=== PATIENT | female | born 1975 | race Caucasian/White ===

== ENCOUNTER 2023-02-25 14:07 | Outpatient (OUT) | payer OTHER, SELFPAY ==
--- NOTE | 2023-02-25 12:30 | PM.CN ---
Consult Note: HPI Data of Consult Patient: known to practice within the last 3 years Consult date: 02/25/23 Requesting Physician: JULIETH PASCAL NP Family Provider: DMISC Consult Narrative Narrative: Risa is here for f/u of second dx bilat thoracic MBB T11/ 12 T12/L1. No new sensorimotor sx or bowel or bladder issues. She received 80% relief of pain with increased fx for several hours after procedure. She would like to proceed with RFA. No questions on procedure. She did inquire about increasing requip. She is aware not to increase dose d/t being on max dose now. We discussed her trying magnesium glycinate OTC as directed. We also discussed smoking cessation for spine health. cc:: CC: JUILETH PASCAL NP Review of Systems ROS Status of ROS 10 or more systems reviewed and unremarkable except as noted in history and below Musculoskeletal Reports: back pain Exam Constitutional: Documenting provider has reviewed patient's vital signs: yes Common normals: no apparent distress, average body habitus, oriented x3, no limitations, healthy appearing, alert and well nourished General appearance: cooperative, comfortable and well developed Orientation/consciousness: Yes awake, Yes oriented to person, Yes oriented to place and Yes oriented to time HENMT: Common normals: normocephalic, external nose normal and moist oral mucous membranes Respiratory: Common normals: normal respiratory effort, no retractions and no use of accessory muscles Effort & inspection: able to speak in complete sentences and symmetric chest movement Back & Pelvis: Thoracic spine/upper back: normal to inspection, thoracic ROM normal, pain with ROM, thoracic spinal tenderness, paraspinal muscle tenderness, paraspinal muscle spasm and other soft tissue findings (positive pain with ROM and facet loading positive) Lumbar spine/lower back: normal to inspection and straight leg raise negative bilaterally Other: no radicular sx. Muscle strength 5/5 bilat LE with intact sensation Skin: Common normals: no rashes or lesions noted Assessment and Plan Assessment and Plan (1) Lumbar spondylosis: (2) Muscle spasm: Plan thermal RFA bilat T11/12, T12/L1 under fluoroscopy magnesium glycinate
== END 2023-02-25 14:08 ==
LOC: PM 04-14 14:08
PROVIDERS: PCP Nurse Practitioner; Visit Provider Nurse Practitioner
DX: M47.816 Spondylosis without myelopathy or radiculopathy, lumbar region (principal); M62.838 Other muscle spasm
CPT/HCPCS: G0463

== ENCOUNTER 2023-03-22 07:07 | Day surgery (SDC) | payer OTHER, SELFPAY ==
[2023-03-22 07:30] LABS: Glucometer 162 mg/dL (74-106)
--- NOTE | 2023-03-22 07:46 | W.PM.PROCNOT ---
Date of procedure: 03/22/23 Procedure: Left Thoracic 11/12 & 12/Lumbar 1 Radiofrequency ablation PreOp diagnosis: pain secondary to include thoracic spondylosis Postop diagnosis same Under fluoroscopic guidance Rhizotomy was created using radio frequency ablation at 80?C for 90 seconds 1 to 2 lesions created at each site. Post lesioning injection of 2 mL each of 0.25% Marcaine and 2% lidocaine with Depo-Medrol 40mg. 0.5 to 1 mL injected at each site IV in place yes Intravenous fluids: NS at KVO Anesthesia local 2% lidocaine for Anesthesia Other: MAC Timeout process compliant After informed consent obtained.Patient brought to the procedure room placed in the prone position skin overlying the area was prepped and draped in a sterile fashion using betadine. 25 gauge needle was used to create a skin wheal over each of the targeted areas utilizing 2% lidocaine. A rhizotomy needle with a 10 mm active tip was inserted over each of the anesthetized areas and directed towards each of the medial branches accomplished under fluoroscopic guidance. after encountering the same we had positive sensory stimulation, negative motor stimulation was noted. lesions were then created. Post lesioning, steroid solution was injected needles removed. Patient was transferred to recovery room in stable condition to be discharged home after meeting criteria. Anesthesia: MAC Surgeon: Jurgen Brady Condition: stable
[2023-03-22 07:47] VITALS: BP 136/82; PULSE 107; RESP 16; TEMP 36.7; O2SAT 97
[2023-03-22] MEDS: 0.9 % SODIUM CHLORIDE 500 ML IV (08:19)
[2023-03-22] MEDS: METHYLPREDNISOLONE ACETATE 40 MG/ML VIAL INJ (08:32)
[2023-03-22] MEDS: BUPIVACAINE HCL 0.25% PF 25 MG/10 ML VIAL 4 ML INJ (08:32)
[2023-03-22] MEDS: LIDOCAINE HCL 2% 400 MG/20 ML MDV 8 ML INJ (08:33)
[2023-03-22 08:44] VITALS: BP 129/76; PULSE 101; RESP 16; TEMP 36.7; O2SAT 98
[2023-03-22 08:48] VITALS: BP 123/85; PULSE 98; RESP 16; TEMP 36.6; O2SAT 98
== END 2023-03-22 09:02 | disposition home or self-care (01) ==
PROVIDERS: PCP Nurse Practitioner; Visit Provider Anesthesiology Pain Medicine
DX: M47.814 Spondylosis without myelopathy or radiculopathy, thoracic region (principal)
CPT/HCPCS: 36415; 64633; 64634; J1030; J2704

== ENCOUNTER 2023-04-05 06:46 | Day surgery (SDC) | payer OTHER, SELFPAY ==
[2023-04-05 07:10] VITALS: BP 126/69; PULSE 97; RESP 16; TEMP 37.2; O2SAT 97
[2023-04-05 07:12] LABS: Glucometer 228 mg/dL (74-106)
[2023-04-05] MEDS: 0.9 % SODIUM CHLORIDE 500 ML 50 ML IV (07:24)
[2023-04-05] MEDS: BUPIVACAINE HCL 0.25% PF 25 MG/10 ML VIAL INJ (08:04)
[2023-04-05] MEDS: METHYLPREDNISOLONE ACETATE 40 MG/ML VIAL INJ (08:05)
[2023-04-05] MEDS: LIDOCAINE HCL 2% 400 MG/20 ML MDV 8 ML INJ (08:05)
[2023-04-05 08:21] VITALS: BP 116/66; PULSE 97; RESP 16; O2SAT 97
--- NOTE | 2023-04-05 08:22 | W.PM.PROCNOT ---
Date of procedure: 04/05/23 Pre-op diagnosis: thoracic spondylosis Post-op diagnosis: same Procedure: Right thoracic 11/12 and thoracic 12/lumbar 1 Radiofrequency ablation Under fluoroscopic guidance Rhizotomy was created using radio frequency ablation at 80?C for 90 seconds 1 to 2 lesions created at each site. Post lesioning injection of 2 mL each of 0.25% Marcaine and 2% lidocaine with Depo-Medrol 40mg. 0.5 to 1 mL injected at each site IV in place yes/no If Intravenous fluids: NS at KVO Anesthesia local 2% lidocaine for Anesthesia Other: MAC Timeout process compliant After informed consent obtained.Patient brought to the procedure room placed in the prone position skin overlying the area was prepped and draped in a sterile fashion using betadine. 25 gauge needle was used to create a skin wheal over each of the targeted areas utilizing 2% lidocaine. A rhizotomy needle with a 10 mm active tip was inserted over each of the anesthetized areas and directed towards each of the medial branches accomplished under fluoroscopic guidance. after encountering the same we had positive sensory stimulation, negative motor stimulation was noted. lesions were then created. Post lesioning, steroid solution was injected needles removed. Patient was transferred to recovery room in stable condition to be discharged home after meeting criteria. Anesthesia: MAC Surgeon: Jurgen Brady Condition: stable
[2023-04-05 08:26] VITALS: BP 107/72; PULSE 96; RESP 16
== END 2023-04-05 08:37 ==
LOC: SURGOUT 06:47
PROVIDERS: PCP Nurse Practitioner; Visit Provider Anesthesiology Pain Medicine
DX: M47.814 Spondylosis without myelopathy or radiculopathy, thoracic region (principal); E11.9 Type 2 diabetes mellitus without complications
CPT/HCPCS: 36415; 64633; 64634; 82948; J1030; J2704

== ENCOUNTER 2023-05-05 13:09 | Outpatient (OUT) | payer OTHER, SELFPAY ==
--- NOTE | 2023-05-05 13:26 | PM.CN ---
Consult Note: HPI Data of Consult Patient: known to practice within the last 3 years Requesting Physician: JULIETH PASCAL NP Primary Care Provider: Non-Staff Physician, Family Provider: LEESA Consult Narrative Narrative: Risa Joshi a 48 year old female presents for follow up on chronic back pain. Patient has had numerous MBB & RFA historically, most recently T11-12 T12-L1. Patient continues to have intense middle to low back pain without radiculopathy. Patient interested in doing lumbar RFAs for back pain. Today rating pain 7/10 while on gabapentin 600mg TID, tramadol 50mg 2tabs BID, requip 4mg HS, baclofen BID, and prn extra strength tylenol. cc:: CC: JULIETH PASCAL NP Review of Systems ROS Status of ROS 10 or more systems reviewed and unremarkable except as noted in history and below [facility] Medical History (Updated 03/17/23 @ 07:46 by Keily Biswas) Surgical History Meds Home Medications and Allergies Home Medications Medication Instructions Recorded Confirmed Type aspirin 81 mg tablet,delayed 81 mg PO DAILY 02/25/23 04/05/23 History release (Adult Low Dose Aspirin) atorvastatin 80 mg tablet (Lipitor) 80 mg PO DAILY 02/25/23 04/05/23 History baclofen 10 mg tablet 10 mg PO DAILY 02/25/23 04/05/23 History diclofenac sodium 75 mg 75 mg PO BID 02/25/23 04/05/23 History tablet,delayed release duloxetine 60 mg capsule,delayed 60 mg PO DAILY 02/25/23 04/05/23 History release empagliflozin PO QDAY 02/25/23 History fenofibrate 54 mg tablet 54 mg PO DAILY 02/25/23 04/05/23 History fenofibrate micronized PO QDAY 02/25/23 History fluticasone propionate 50 1 spray intranasal DAILY 02/25/23 04/05/23 History mcg/actuation nasal spray,suspension (Flonase Allergy Relief) furosemide 20 mg tablet (Lasix) 20 mg PO DAILY 02/25/23 04/05/23 History gabapentin 600 mg tablet 600 mg PO TID 02/25/23 04/05/23 History insulin lispro 200 unit/mL (3 mL) 20 unit subcut TID 02/25/23 04/05/23 History subcutaneous pen (Humalog KwikPen U-200 Insulin) levocetirizine 5 mg tablet (Xyzal) 5 mg PO DAILY 02/25/23 04/05/23 History lisinopril 10 mg tablet 10 mg PO DAILY 02/25/23 04/05/23 History metoprolol succinate PO QDAY 02/25/23 History montelukast 10 mg tablet 10 mg PO QPM 02/25/23 04/05/23 History (Singulair) ropinirole 4 mg tablet 4 mg PO DAILY 02/25/23 04/05/23 History tramadol 100 mg tablet 100 mg PO BID 02/25/23 04/05/23 History Allergies Allergy/AdvReac Type Severity Reaction Status Date / Time Penicillins Allergy Unknown Verified 04/05/23 07:21 Exam Back & Pelvis Other: positive facet loading in left lower back without radiculopathy. predominately axial low back pain. Assessment and Plan Assessment and Plan (1) Lumbar spondylosis: (2) Muscle spasm: Plan positive facet loading in left lower back without radiculopathy. predominately axial low back pain. Patient has had chronic low back pain for longer than 3 months that has failed conservative therapies such as NSAIDs and PT. Patient will be scheduled for two diagnostic blocks at left L2-3 L4-5 site. If patient demonstrates >80% pain relief and increase in ability to perform ADLs and activities we will proceed with thermal RFA under ablation. Discussed procedures with patient as well as risks vs benefits. No additional questions at this time. -schedule patient for Left side L2-3 L3-4 MBB#1 -follow up one week after injection -continue gabapentin 600mg TID -continue tramadol 50mg 2 tabs BID PRN pain -continue requip 4mg HS -continue baclofen 10mg BID -ok to use PRN tylenol -continue HEP
== END 2023-05-05 13:10 | disposition home or self-care (01) ==
LOC: PM 13:10
PROVIDERS: Visit Provider Nurse Practitioner
DX: M47.816 Spondylosis without myelopathy or radiculopathy, lumbar region (principal); M62.838 Other muscle spasm
CPT/HCPCS: G0463

== ENCOUNTER 2023-05-31 10:22 | Day surgery (SDC) | payer OTHER, SELFPAY ==
[2023-05-31 10:30] VITALS: BP 129/81; PULSE 91; RESP 16; TEMP 36.8; O2SAT 95
[2023-05-31 10:37] LABS: Glucometer 205 mg/dL (74-106)
[2023-05-31 11:38] VITALS: BP 116/61; PULSE 89; RESP 18; O2SAT 91
[2023-05-31] MEDS: BUPIVACAINE HCL 0.25% PF 25 MG/10 ML VIAL INJ (11:40)
[2023-05-31 11:41] VITALS: BP 120/67; PULSE 88; RESP 18; O2SAT 91
--- NOTE | 2023-05-31 13:13 | P.ON_ITS ---
Date of procedure: 05/31/23 Pre-op diagnosis: lumbar spondylosis Post-op diagnosis: same as pre-op Procedure: Left lumbar 2/3, 3/4 medial branch block Under fluoroscopic guidance Solution injected: 2millilitersMarcaine 0.25% Anesthesia :none Immediate complications none Time out process compliant After informed consent obtained from the patient placed in the Prone proposition . area was prepped and draped in a sterile fashion using Cloraprep .25 gauge spinal needle inserted over each of the above mentioned target areas . [place] were directed towards the target under fluoroscopic guidance . after encountering each of the targets , no indication of intravascular intraneuronal or intrathecal needle tip placement. Then 0 .5 to 1 Milliliter was injected at each level. [place] removed postoperatively. patient transferred to recovery in stable condition to be discharged home after meeting criteria Anesthesia: Local Surgeon: Jurgen Brady Condition: stable
== END 2023-05-31 11:48 | disposition home or self-care (01) ==
LOC: SURGOUT 10:23
PROVIDERS: Visit Provider Anesthesiology Pain Medicine
DX: M47.816 Spondylosis without myelopathy or radiculopathy, lumbar region (principal); Z79.4 Long term (current) use of insulin; Z79.899 Other long term (current) drug therapy
CPT/HCPCS: 36415; 64493; 64494; 82948

== ENCOUNTER 2023-06-09 14:46 | Outpatient (OUT) | payer OTHER, SELFPAY ==
--- NOTE | 2023-06-09 14:54 | PM.CN ---
Consult Note: HPI Data of Consult Patient: known to practice within the last 3 years Requesting Physician: Suzi Longoria NP Primary Care Provider: Non-Staff Physician, Family Provider: LEESA Consult Narrative Reason for consult: f/u Narrative: Risa Joshi a 48 year old female presents for follow up on chronic back pain. Patient has had numerous MBB & RFA historically. Patient continues to have intense middle to low back pain without radiculopathy. Today rating pain 7/10 while on gabapentin 600mg TID, tramadol 50mg 2tabs BID, requip 4mg HS, baclofen BID, and prn extra strength tylenol. cc:: CC: Suzi Longoria NP Review of Systems ROS Status of ROS 10 or more systems reviewed and unremarkable except as noted in history and below Musculoskeletal Reports: back pain PFSH [facility] Medical History (Updated 06/09/23 @ 15:14 by Suzi Longoria NP) Surgical History Meds Home Medications and Allergies Home Medications Medication Instructions Recorded Confirmed Type aspirin 81 mg tablet,delayed 81 mg PO DAILY 02/25/23 05/31/23 History release (Adult Low Dose Aspirin) atorvastatin 80 mg tablet (Lipitor) 80 mg PO DAILY 02/25/23 05/31/23 History baclofen 10 mg tablet 10 mg PO DAILY 02/25/23 05/31/23 History diclofenac sodium 75 mg 75 mg PO BID 02/25/23 05/31/23 History tablet,delayed release duloxetine 60 mg capsule,delayed 60 mg PO DAILY 02/25/23 05/31/23 History release empagliflozin PO QDAY 02/25/23 History fenofibrate 54 mg tablet 54 mg PO DAILY 02/25/23 05/31/23 History fenofibrate micronized PO QDAY 02/25/23 History fluticasone propionate 50 1 spray intranasal DAILY 02/25/23 05/31/23 History mcg/actuation nasal spray,suspension (Flonase Allergy Relief) furosemide 20 mg tablet (Lasix) 20 mg PO DAILY 02/25/23 05/31/23 History gabapentin 600 mg tablet 600 mg PO TID 02/25/23 05/31/23 History insulin lispro 200 unit/mL (3 mL) 20 unit subcut TID 02/25/23 05/31/23 History subcutaneous pen (Humalog KwikPen U-200 Insulin) levocetirizine 5 mg tablet (Xyzal) 5 mg PO DAILY 02/25/23 05/31/23 History lisinopril 10 mg tablet 10 mg PO DAILY 02/25/23 05/31/23 History metoprolol succinate PO QDAY 02/25/23 History montelukast 10 mg tablet 10 mg PO QPM 02/25/23 05/31/23 History (Singulair) ropinirole 4 mg tablet 4 mg PO DAILY 02/25/23 05/31/23 History tramadol 100 mg tablet 100 mg PO BID 02/25/23 05/31/23 History albuterol sulfate 90 mcg/actuation inhalation TID PRN shortness of 05/31/23 History aerosol inhaler breath or wheezing Allergies Allergy/AdvReac Type Severity Reaction Status Date / Time Penicillins Allergy Unknown Verified 04/05/23 07:21 Exam Constitutional Documenting provider has reviewed patient's vital signs: yes Common normals: no apparent distress, oriented x3, healthy appearing, alert and well nourished General appearance: cooperative HENMT Common normals: normocephalic, hearing grossly normal bilaterally and moist oral mucous membranes Head and scalp: normocephalic Eye Common normals: PERRL Pupil: PERRL Neck & C-Spine Common normals: full ROM General: normal visual inspection Chest Common normals: inspection of chest normal Respiratory Common normals: normal respiratory effort, no retractions and no use of accessory muscles Back & Pelvis Lumbar spine/lower back: ROM limited and pain with ROM Other: positive facet loading in left lower back without radiculopathy. predominately axial low back pain. Extremity Common normals: normal to inspection and full ROM Neuro Common normals: oriented x3, CN's II-XII intact bilaterally, moves all extremities, no focal motor deficits, no sensory deficits noted and deep tendon reflexes 2+ bilaterally Sensorium/orientation: alert Gait (neuro): normal gait Motor exam: strength 5/5 throughout and no movement abnormalities noted Psych Common normals: mental status grossly normal, thought process normal, cooperative, affect normal, speech normal and activity/motor behavior normal Speech: normal speech Thought process: normal thought process Results Additional Findings Additional findings: I have checked an OARRS report on this patient today and there are no aberrancies noted in the prescribing history.?? A drug screen was completed and reviewed within the last year, and if there has not been a drug screen completed we ordered one today to monitor higher risk, state monitored pain medication use. As part of providing excellent, safe, comprehensive care, the following was completed at our patient's visit: 1. A medication reconciliation and review to ensure accurate knowledge of current/active medications, including asking our patients to inform us about any [id number] medications or herbal remedies/nutritional supplements/alternative remedies. 2. A review to specifically ensure our patients have had annual screening for: elevated body mass index (BMI), tobacco use, screening for depression, and screening for unhealthy alcohol use. When screening is concerning, patients are provided with education and the specific recommendation to discuss the concerning health issue and treatment options with their primary care provider. Assessment and Plan Assessment and Plan (1) Lumbar spondylosis: (2) Muscle spasm: (3) Chronic prescription opiate use: Plan positive facet loading in left lower back without radiculopathy. predominately axial low back pain. Patient has had chronic low back pain for longer than 3 months that has failed conservative therapies such as NSAIDs and PT. If patient demonstrates >80% pain relief and increase in ability to perform ADLs and activities we will proceed with thermal RFA under ablation. Discussed procedures with patient as well as risks vs benefits. No additional questions at this time. -schedule patient for Left side L2-3 L3-4 MBB#2 under fluoroscopy working towards thermal RFA -continue current medication regimen -continue HEP -follow up one week after injection
== END 2023-06-09 14:47 | disposition home or self-care (01) ==
LOC: PM 14:46
PROVIDERS: Visit Provider Nurse Practitioner
DX: M47.816 Spondylosis without myelopathy or radiculopathy, lumbar region (principal); M62.838 Other muscle spasm; Z79.891 Long term (current) use of opiate analgesic
CPT/HCPCS: G0463

== ENCOUNTER 2023-07-12 08:03 | Day surgery (SDC) | payer OTHER, SELFPAY ==
[2023-07-12 08:37] VITALS: BP 142/76; PULSE 106; RESP 16; TEMP 36.6; O2SAT 99
[2023-07-12 08:41] LABS: Glucometer 227 mg/dL (74-106)
[2023-07-12] MEDS: BUPIVACAINE HCL 0.25% PF 25 MG/10 ML VIAL INJ (09:38)
[2023-07-12 09:39] VITALS: BP 124/65; BP 128/62; PULSE 109; PULSE 110; RESP 18; O2SAT 90; O2SAT 93
--- NOTE | 2023-07-12 10:41 | P.ON_ITS ---
Date of procedure: 07/12/23 Pre-op diagnosis: Lumbar Spondylosis Post-op diagnosis: same as pre-op Procedure: Left Lumbar 2,3 3,4 medial branch block Under fluoroscopic guidance Solution injected: 2millilitersMarcaine 0.25% Anesthesia :none Immediate complications none Time out process compliant After informed consent obtained from the patient placed in the Prone proposition . area was prepped and draped in a sterile fashion using Cloraprep .25 gauge spinal needle inserted over each of the above mentioned target areas . [place] were directed towards the target under fluoroscopic guidance . after encountering each of the targets , no indication of intravascular intraneuronal or intrathecal needle tip placement. Then 0 .5 to 1 Milliliter was injected at each level. [place] removed postoperatively. patient transferred to recovery in stable condition to be discharged home after meeting criteria Anesthesia: Local Surgeon: Jurgen Brady Condition: stable
== END 2023-07-12 09:45 | disposition home or self-care (01) ==
LOC: SURGOUT 08:03
PROVIDERS: Visit Provider Anesthesiology Pain Medicine
DX: M47.816 Spondylosis without myelopathy or radiculopathy, lumbar region (principal)
CPT/HCPCS: 36415; 64493; 64494; 82948

== ENCOUNTER 2023-07-21 13:43 | Outpatient (OUT) | payer OTHER, SELFPAY ==
--- NOTE | 2023-07-21 14:04 | PM.CN ---
Consult Note: HPI Data of Consult Patient: known to practice within the last 3 years Requesting Physician: Suzi Longoria NP Primary Care Provider: Non-Staff Physician, Family Provider: DMRAMANA Consult Narrative Reason for consult: f/u Narrative: Risa Joshi a 48 year old female presents for follow up on chronic back pain. Patient has had numerous MBB & RFA historically. Patient continues to have intense middle to low back pain without radiculopathy. Today rating pain 8/10. Patient had 80% pain relief and functional improvement immediately following and hours after MBB #2 at L2,3 3,4. cc:: CC: Suzi Longoria NP Review of Systems ROS Status of ROS 10 or more systems reviewed and unremarkable except as noted in history and below Musculoskeletal Reports: back pain PFSH PFSH Medical History Angina at rest ?I20.8 - Other forms of angina pectoris (ICD-10) Asthma ?J45.909 - Unspecified asthma, uncomplicated (ICD-10) Diabetes ?E11.9 - Type 2 diabetes mellitus without complications (ICD-10) Fibromyalgia ?M79.7 - Fibromyalgia (ICD-10) Goiter ?E04.9 - Nontoxic goiter, unspecified (ICD-10) Heart palpitations ?R00.2 - Palpitations (ICD-10) High cholesterol ?E78.00 - Pure hypercholesterolemia, unspecified (ICD-10) Hypertension ?I10 - Essential (primary) hypertension (ICD-10) Hyperthyroidism ?E05.90 - Thyrotoxicosis, unspecified without thyrotoxic crisis or storm (ICD-10) Kidney stone ?N20.0 - Calculus of kidney (ICD-10) Low back pain ?M54.50 - Low back pain, unspecified (ICD-10) Neck pain ?M54.2 - Cervicalgia (ICD-10) Neuropathy ?G62.9 - Polyneuropathy, unspecified (ICD-10) RSD (reflex sympathetic dystrophy) ?G90.50 - Complex regional pain syndrome I, unspecified (ICD-10) S/P extracorporeal shock wave therapy ?Z98.890 - Other specified postprocedural states (ICD-10) Smoker ?F17.200 - Nicotine dependence, unspecified, uncomplicated (ICD-10) TMJ (dislocation of temporomandibular joint) ?S03.00XA - Dislocation of jaw, unspecified side, initial encounter (ICD-10) Upper back pain ?M54.9 - Dorsalgia, unspecified (ICD-10) Ureteral stent displacement ?T83.122A - Displacement of indwelling ureteral stent, initial encounter (ICD-10) Surgical History H/O: hysterectomy ?Z90.710 - Acquired absence of both cervix and uterus (ICD-10) S/P insertion of spinal cord stimulator ?Z96.89 - Presence of other specified functional implants (ICD-10) S/P shoulder surgery ?Z98.890 - Other specified postprocedural states (ICD-10) Meds Home Medications and Allergies Home Medications Medication Instructions Recorded Confirmed Type aspirin 81 mg tablet,delayed 81 mg PO DAILY 02/25/23 07/12/23 History release (Adult Low Dose Aspirin) atorvastatin 80 mg tablet (Lipitor) 80 mg PO DAILY 02/25/23 07/12/23 History baclofen 10 mg tablet 10 mg PO DAILY 02/25/23 07/12/23 History diclofenac sodium 75 mg 75 mg PO BID 02/25/23 07/12/23 History tablet,delayed release duloxetine 60 mg capsule,delayed 60 mg PO DAILY 02/25/23 07/12/23 History release empagliflozin PO QDAY 02/25/23 History fenofibrate 54 mg tablet 54 mg PO DAILY 02/25/23 07/12/23 History fenofibrate micronized PO QDAY 02/25/23 History fluticasone propionate 50 1 spray intranasal DAILY 02/25/23 07/12/23 History mcg/actuation nasal spray,suspension (Flonase Allergy Relief) furosemide 20 mg tablet (Lasix) 20 mg PO DAILY 02/25/23 07/12/23 History gabapentin 600 mg tablet 600 mg PO TID 02/25/23 07/12/23 History insulin lispro 200 unit/mL (3 mL) 20 unit subcut TID 02/25/23 07/12/23 History subcutaneous pen (Humalog KwikPen U-200 Insulin) levocetirizine 5 mg tablet (Xyzal) 5 mg PO DAILY 02/25/23 07/12/23 History lisinopril 10 mg tablet 10 mg PO DAILY 02/25/23 07/12/23 History metoprolol succinate PO QDAY 02/25/23 History montelukast 10 mg tablet 10 mg PO QPM 02/25/23 07/12/23 History (Singulair) ropinirole 4 mg tablet 4 mg PO DAILY 02/25/23 07/12/23 History tramadol 100 mg tablet 100 mg PO BID 02/25/23 07/12/23 History albuterol sulfate 90 mcg/actuation inhalation TID PRN shortness of 05/31/23 History aerosol inhaler breath or wheezing insulin regular hum U-500 conc 500 unit subcut 07/12/23 History unit/mL(3 mL) subcut pen (Humulin R U-500 (Conc) Insulin Kwikpen) ropinirole 4 mg tablet 4 mg PO DAILY #30 tabs 07/13/23 Rx tramadol 50 mg tablet 50 mg PO QID PRN pain #120 tabs 07/13/23 Rx Allergies Allergy/AdvReac Type Severity Reaction Status Date / Time Penicillins Allergy Unknown Verified 07/12/23 08:34 Exam Constitutional Documenting provider has reviewed patient's vital signs: yes Common normals: no apparent distress, oriented x3, healthy appearing, alert and well nourished General appearance: cooperative HENOR Common normals: normocephalic, hearing grossly normal bilaterally and moist oral mucous membranes Head and scalp: normocephalic Eye Common normals: PERRL Pupil: PERRL Neck & C-Spine Common normals: full ROM General: normal visual inspection Chest Common normals: inspection of chest normal Respiratory Common normals: normal respiratory effort, no retractions and no use of accessory muscles Back & Pelvis Lumbar spine/lower back: ROM limited and pain with ROM Other: positive facet loading in left lower back without radiculopathy. predominately axial low back pain. Extremity Common normals: normal to inspection and full ROM Other: left shoulder limited ROM, pain with ROM, tender to touch Neuro Common normals: oriented x3, CN's II-XII intact bilaterally, moves all extremities, no focal motor deficits, no sensory deficits noted and deep tendon reflexes 2+ bilaterally Sensorium/orientation: alert Gait (neuro): normal gait Motor exam: strength 5/5 throughout and no movement abnormalities noted Psych Common normals: mental status grossly normal, thought process normal, cooperative, affect normal, speech normal and activity/motor behavior normal Speech: normal speech Thought process: normal thought process Results Additional Findings Additional findings: I have checked an OARRS report on this patient today and there are no aberrancies noted in the prescribing history.?? A drug screen was completed and reviewed within the last year, and if there has not been a drug screen completed we ordered one today to monitor higher risk, state monitored pain medication use. As part of providing excellent, safe, comprehensive care, the following was completed at our patient's visit: 1. A medication reconciliation and review to ensure accurate knowledge of current/active medications, including asking our patients to inform us about any [id number]-[id number] medications or herbal remedies/nutritional supplements/alternative remedies. 2. A review to specifically ensure our patients have had annual screening for: elevated body mass index (BMI), tobacco use, screening for depression, and screening for unhealthy alcohol use. When screening is concerning, patients are provided with education and the specific recommendation to discuss the concerning health issue and treatment options with their primary care provider. Assessment and Plan Assessment and Plan (1) Chronic prescription opiate use: (2) Lumbar spondylosis: (3) Muscle spasm: (4) Left shoulder pain: Plan positive facet loading in left lower back without radiculopathy. predominately axial low back pain. Patient has had chronic low back pain for longer than 3 months that has failed conservative therapies such as NSAIDs and PT. Discussed procedures with patient as well as risks vs benefits. No additional questions at this time. -proceed with thermal rfa at left lumbar 2,3 3,4 under fluoroscopy -left shoulder xray, consider steroid injection if needed -continue current medication regimen -continue HEP -follow up one month after RFA
== END 2023-07-21 13:44 | disposition home or self-care (01) ==
LOC: PM 13:43
PROVIDERS: Visit Provider Nurse Practitioner
DX: M47.816 Spondylosis without myelopathy or radiculopathy, lumbar region (principal); M25.512 Pain in left shoulder; M62.838 Other muscle spasm; Z79.899 Other long term (current) drug therapy
CPT/HCPCS: G0463

== ENCOUNTER 2023-08-16 07:03 | Day surgery (SDC) | payer OTHER, SELFPAY ==
[2023-08-16 07:33] VITALS: BP 126/72; PULSE 95; RESP 17; TEMP 37; O2SAT 97
[2023-08-16 07:38] LABS: Glucometer 126 mg/dL (74-106)
[2023-08-16] MEDS: 0.9 % SODIUM CHLORIDE 500 ML IV (07:57)
[2023-08-16] MEDS: BUPIVACAINE HCL 0.25% PF 25 MG/10 ML VIAL 4 ML INJ (08:27)
[2023-08-16] MEDS: METHYLPREDNISOLONE ACETATE 40 MG/ML VIAL INJ (08:27)
[2023-08-16] MEDS: LIDOCAINE HCL 2% 400 MG/20 ML MDV 8 ML INJ (08:27)
[2023-08-16 08:41] VITALS: BP 86/60; PULSE 86; RESP 18; TEMP 37.1; O2SAT 93
[2023-08-16 08:49] VITALS: BP 101/63; PULSE 84; RESP 18; TEMP 37.1; O2SAT 95
--- NOTE | 2023-08-16 09:28 | W.PM.PROCNOT ---
Date of procedure: 08/16/23 Pre-op diagnosis: Lumbar Spondylosis Post-op diagnosis: same as pre-op Procedure: Left Lumbar 2,3,4 Radiofrequency ablation Under fluoroscopic guidance Rhizotomy was created using radio frequency ablation at 80?C for 90 seconds 1 to 2 lesions created at each site. Post lesioning injection of 2 mL each of 0.25% Marcaine and 2% lidocaine with Depo-Medrol 40mg. 0.5 to 1 mL injected at each site IV in place yes If Intravenous fluids: NS at KVO Anesthesia local 2% lidocaine for Anesthesia Other: MAC Timeout process compliant After informed consent obtained.Patient brought to the procedure room placed in the prone position skin overlying the area was prepped and draped in a sterile fashion using betadine. 25 gauge needle was used to create a skin wheal over each of the targeted areas utilizing 2% lidocaine. A rhizotomy needle with a 10 mm active tip was inserted over each of the anesthetized areas and directed towards each of the medial branches accomplished under fluoroscopic guidance. after encountering the same we had positive sensory stimulation, negative motor stimulation was noted. lesions were then created. Post lesioning, steroid solution was injected needles removed. Patient was transferred to recovery room in stable condition to be discharged home after meeting criteria. Anesthesia: MAC Surgeon: Jurgen Brady Condition: stable
== END 2023-08-16 09:07 | disposition home or self-care (01) ==
PROVIDERS: Visit Provider Anesthesiology Pain Medicine
DX: M47.816 Spondylosis without myelopathy or radiculopathy, lumbar region (principal)
CPT/HCPCS: 36415; 64635; 64636; 82948; J1030; J2704

== ENCOUNTER 2023-09-15 12:56 | Outpatient (OUT) | payer OTHER, SELFPAY ==
--- OUTSIDE RECORDS SUMMARY | 2023-09-15 13:02 | XMS_ITS | CCD ---
Author Name Unknown Address [address] [place] [address] Organization [facility] Care Team Providers Care Gel Coater Name Role Phone VAL SENIOR Unavailable Unavailable BURNS, BROOKLYN P Unavailable Unavailable AHMAD, SHOWKAT Unavailable Unavailable MARIUSZ MONTOYA Unavailable Unavailable VADIM MORATAYA Unavailable Unavailable MightVivian Primary Care Provider [phone] Might, Vivian Primary Care Provider Might, Vivian Primary Care Provider [phone] Might, Vivian Primary Care Provider Might SET UP MECHANIC - COMMERCIAL ENGINEER, [facility] Primary Care Provider MIGHT, VIVIAN W Primary Care Unavailable CLAUDIA WILLETT Referring Unavailable Might SET UP MECHANIC - Viivan SU W Primary Care Provider Might SET UP MECHANIC - COMMERCIAL ENGINEER, Vivian W Primary Care Provider Might SET UP MECHANIC - COMMERCIAL ENGINEER, Vivian Primary Care Provider Might SET UP MECHANIC - COMMERCIAL ENGINEER, Vivian Primary Care Provider Might SET UP MECHANIC - COMMERCIAL ENGINEER Vivian W Primary Care Provider NON STAFF Primary Care Provider UnavailMD Shiraz Joyner Attending Provider NON STAFF Primary Care Unavailable Shiraz Sherman Attending Unavailable Shiraz Sherman Admitting Unavailable NON STAFF Primary Care Unavailable Shiraz Sherman Attending Unavailable Shiraz Sherman Admitting Unavailable NON STAFF Primary Care Unavailable Tyree Hidalgo Attending Unavailable Tyree Hidalgo Admitting Unavailable NON STAFF Primary Care Unavailable Shiraz Sherman Admitting Unavailable Shiraz Sherman Attending Unavailable Shiraz Sherman Unavailable YUMIKO Tomlinson DR COREY Bautista Attending Unavailable CLEVELAND ., DR COREY Bautista Admitting Unavailable MISC, DR GAFFNEY Primary Care Unavailable MISC, DR GAFFNEY Consulting Unavailable CLEVELAND ., DR COREY Bautista Consulting Unavailable AGUBOSIM, VANESSA Consulting Unavailable MISC, DR GAFFNEY Primary Care Unavailable CLEVELAND ., DR COREY Bautista Attending Unavailable CLEVELAND ., DR COREY Bautista Admitting Unavailable CLEVELAND ., DR COREY Bautista Consulting Unavailable SHARP, MAXIM Consulting Unavailable LAKSHMIPATHY ., NARENDRANATH Attending Kateryna vailable LAKSHMIPATHY ., NARENDRANATH Admitting Kateryna vailable MISC, DR GAFFNEY Primary Care Unavailable MISC, DR GAFFNEY Consulting Unavailable CLEMENTS ., KEILY Consulting Unavailable CLEVELAND ., DR COREY Bautista Attending Unavailable CLEVELAND ., DR COREY Bautista Admitting Unavailable MISC, DR GAFFNEY Primary Care Unavailable CLEVELAND ., DR COREY Bautista Attending Unavailable CLEVELAND ., DR COREY Bautista Admitting Unavailable MISC, DR GAFFNEY Consulting Unavailable MISC, DR GAFFNEY Primary Care Unavailable CLEVELAND ., DR COREY Bautista Consulting Unavailable CLEVELAND ., DR COREY Bautista Attending Unavailable CLEVELAND ., DR COREY Bautista Admitting Unavailable MISC, DR GAFFNEY Primary Care Unavailable MISC, DR GAFFNEY Consulting Unavailable CLEMENTS ., KEILY Consulting Unavailable LAKSHMIPATHY ., NARENDRANATH Attending Kateryna vailable LAKSHMIPATHY ., NARENDRANATH Admitting Kateryna vailable MISC, DR GAFFNEY Primary Care Unavailable WEST, DR PHILLIP Reilly Consulting Unavailable LAKSHMIPATHY ., NARENDMARINOATH Consulting Kateryna vailable MISC, DR GAFFNEY Primary Care Unavailable CLEVELAND ., DR COREY Bautista Attending Unavailable CLEVELAND ., DR COREY Bautista Admitting Unavailable MISC, DR GAFFNEY Consulting Unavailable CLEMENTS ., KEILY Consulting Unavailable CLEVELAND ., DR COREY Bautista Attending Unavailable CLEVELAND ., DR COREY Bautista Admitting Unavailable MISC, DR GAFFNEY Primary Care Unavailable CLEMENTS ., KEILY Consulting Unavailable LAKSHMIPATHY ., NARENDRANATH Attending Kateryna vailable LAKSHMIPATHY ., NARENDRANATH Admitting Kateryna vailable MISC, DR GAFFNEY Primary Care Unavailable MISC, DR GAFFNEY Consulting Unavailable LAKSHMIPATHY ., NARENDRANATH Consulting Kateryna vailable LAKSHMIPATHY ., NARENDRANATH Consulting Kateryna vailable LAKSHMIPATHY ., NARENDRANATH Admitting Kateryna vailable MISC, DR GAFFNEY Primary Care Unavailable HALLIZBETH ., JULIETH Attending Unavailable LAKSHMIPATHY ., NARENDRANATH Consulting Kateryna vailable LAKSHMIPATHY ., NARENDRANATH Attending Kateryna vailable LAKSHMIPATHY ., NARENDRANATH Admitting Kateryna vailable MISC, DR GAFFNEY Primary Care Unavailable LAKSHMIPATHY ., NARENDRANATH Consulting Kateryna vailable LAKSHMIPATHY ., NARENDRANATH Attending Kateryna vailable LAKSHMIPATHY ., NARENDRANATH Admitting Kateryna vailable MISC, DR GAFFNEY Primary Care Unavailable LAKSHMIPATHY ., NARENDRANATH Attending Kateryna vailable LAKSHMIPATHY ., ALEJOENDMARINOATH Admitting Kateryna vailable MISC, DR GAFFNEY Primary Care Unavailable MISC, DR GAFFNEY Consulting Unavailable LAKSHMIPATHY ., MINERVA Consulting Kateryna vailable MISC, DR GAFFNEY Primary Care Unavailable CLEVELAND ., DR COREY Bautista Attending Unavailable CLEVELAND ., DR COREY Bautista Admitting Unavailable CLEMENTS .KEILY Consulting Unavailable MISC, DR GAFFNEY Primary Care Unavailable CLEVELAND ., DR COREY Bautista Attending Unavailable CLEVELAND ., DR COREY Bautista Admitting Unavailable CLEVELAND ., DR COREY Bautista Consulting Unavailable VERN THORPE Consulting Unavailable Might JOSSE - Vivian SU Primary Care Provider Might SET UP MECHANIC-Vivian SU [facility] Care Un available [place] SET UP MECHANIC-COMMERCIAL ENGINEER, Rolan D Attending Unavailab le [place] SET UP MECHANIC-COMMERCIAL ENGINEER, Rolan D Attending Unavailab le Might SET UP MECHANIC-Vivian SU [facility] Care Un available Might SET UP MECHANIC-Vivian SU [facility] Care Un available [place] SET UP MECHANIC-COMMERCIAL ENGINEER, Rolan D Attending Unavailab le [place] SET UP MECHANIC-COMMERCIAL ENGINEER, Rolan D Attending Unavailab le Might SET UP MECHANIC-Vivian SU [facility] Care Un available [place] SET UP MECHANIC-COMMERCIAL ENGINEER, Rolan D Attending Unavailab le Might JOSSE-GEORGES Vivian [facility] Un available CHIQUISROLAN OTTO Referring Unavailable VIVIAN OSEGUERA Primary Care Unavailable VIVIAN OSEGUERA Primary Care Unavailable LUCY ROCHA Referring Unavailable VIVIAN OSEGUERA Primary Care Unavailable LUCY ROCHA Referring Unavailable VIVIAN OSEGUERA Primary Care Unavailable VIVIAN OSEGUERA Referring Unavailable MIGHT, VIVIAN W Primary Care Unavailable COREY C[place] Referring Unavailable MIGHT, VIVIAN W Primary Care Unavailable MIGHT, VIVIAN W Referring Unavailable MIGHT, VIVIAN W Primary Care Unavailable NATHAN ARDON Referring Unavailable MIGHT, VIVIAN W Primary Care Unavailable NATHAN ARDON Referring Unavailable MIGHT, VIVIAN W Primary Care Unavailable LUCY ROCHA Referring Unavailable MIGHT, VIVIAN W Primary Care Unavailable LUCY ROCHA Referring Unavailable MIGHT, VIVIAN W Primary Care Unavailable ANA BRUCE Referring Unavailable MIGHT, VIVIAN W Primary Care Unavailable LUCY ROCHA Referring Unavailable MIGHT, VIVIAN W Primary Care Unavailable LUCY ROCHA Referring Unavailable MIGHT, VIVIAN W Primary Care Unavailable LAKSHMIPATHY, NARENDRANA Referring Unavail able MIGHT, VIVIAN W Primary Care Unavailable KEILY CLEMENTS Referring Unavailable MIGHT, VIVIAN W Primary Care Unavailable MIGHT, VIVIAN W Referring Unavailable MIGHT, VIVIAN W Primary Care Unavailable NATHAN ARDON F Kena Referring Unavailable MIGHT, VIVIAN W Primary Care Unavailable LUCY ROCHA Referring Unavailable MIGHT, VIVIAN W Primary Care Unavailable MIGHT, VIVIAN W Referring Unavailable MIGHT, VIVIAN W Primary Care Unavailable DAMIR FERNÁNDEZ Referring Unavail able MIGHT, VIVIAN W Primary Care Unavailable MIGHT, VIVIAN W Referring Unavailable MIGHT, VIVIAN W Primary Care Unavailable EMANUEL DANIELLE Attending Unavailable EMANUEL DANIELLE Admitting Unavailable MIGHT, VIVIAN W Primary Care Unavailable TARI DE LA TORRE Attending Unavailable TARI DE LA TORRE Admitting Unavailable MIGHT, VIVIAN W Primary Care Unavailable MIGHT, VIVIAN W Primary Care Unavailable NATHAN ARDON F Kena Referring Unavailable MIGHT, VIVIAN W Primary Care Unavailable ANA BRUCE Referring Unavailable Allergies Allergy Classification Reported Allergen(s) Allergy Type Date of Onset Reaction(s) Facility Penicillins (antibiotic) (9 sources) Penicillins Drug Allergy 3 [facility] (20 sources) Penicillins Propensity to adverse reactions to drug 3 [place], [place] (13 sources) Penicillins Propensity to adverse reactions to drug 3 Rash [facility] (1 source) Penicillins Drug allergy (disorder) 2 [facility] Repository (2 sources) penicillAMINE Drug Allergy Unknown [employer] Other (1 source) Penicillins Drug allergy (disorder) 6 [facility] Repository (1 source) Penicillin; Translations: [penicillin] Drug Allergy [facility] Repository Medications Current Medications Medication Drug Class(es) Dates Sig (Normalized) Sig (Original) Acetaminophen (3 sources) Start: 06-11-2023 acetaminophen (TYLENOL) tablet 650 mg take 1 tablet by fermin th every six hours as needed for pain acetaminophen (TYLENOL) 500 MG tablet Ta ke 1 tablet by mouth every 6 hours as needed for Pain 0 Active acetaminophen 325 mg / HYDROcodone bitartrate 5 mg oral tablet (20 sources) Opioid Agonist Start: 08-06-2022 End: 08-06-2022 HYDROcodone-acetaminophen (NORCO) 5-325 MG per tablet 1 tablet Start: 04-23-2022 take 1 tablet by fermin th twice daily Hydrocodone-Acetaminophen Active 1 TAB P O Twice daily September 21, 2022 12:00am HYDROcodone-Acet aminophen 5-325 MG Oral for 30 Days Active albuterol 0.83 mg/ml inhalation solution (20 sources) beta2-Adrenergic Agonist Start: 06-11-2023 albut barbara (PROVENTIL) (2.5 MG/3ML) 0.083% nebulizer solution 2.5 mg Start: 06-11-2023 End: 06-11-2023 2.5 mg, Nebulization, EVERY 2 HOURS PRN, Starting on 06/11/23 at 0043, Until 06/11/23 at 0345, Wheezing Initiate RT Bronchodilator Protocol: Yes Start: 03-25-2023 take 2 puff(s) by mo uth four times daily for wheezing albuterol sulfate HFA (PROVENTIL;VENTOLIN;PROAIR) 108 (90 Base) MCG/ACT inhaler Indications: Acute bronchitis, unspecified organism inhale 2 puffs by mouth and INTO THE LUNGS four times a day if needed for wheezing 8.5 g 2 03/25/2023 Active Start: 09-21-2022 take 1 puff(s) by in halation four times daily Albuterol Sulfate Active 2 PUFF INHALATION Four times daily September 21, 2022 12:00am Start: 08-23-2022 take 2 puff(s) by mo uth four times daily for wheezing albuterol sulfate HFA (PROVENTIL;VENTOLIN;PROAIR) 108 (90 Base) MCG/ACT inhaler Indications: Acute bronchitis, unspecified organism inhale 2 puffs by mouth and INTO THE LUNGS four times a day if needed for wheezing 8.5 g 2 08/23/2022 Active Start: 08-03-2021 take 2 puff(s) by in halation four times daily as needed for wheezing albuterol sulfate HFA (VENTOLIN HFA) 108 (90 Base) MCG/ACT inhaler Indications: Acute bronchitis, unspecified organism Inhale 2 puffs into the lungs 4 times daily as needed for Wheezing 1 each 1 08/03/2021 Active Start: 04-28-2020 take 2 puff(s) by in halation four times daily as needed for wheezing albuterol sulfate HFA (VENTOLIN HFA) 108 (90 Base) MCG/ACT inhaler Indications: Acute bronchitis, unspecified organism Inhale 2 puffs into the lungs 4 times daily as needed for Wheezing 1 Inhaler 0 04/28/2020 Active Start: 04-28-2020 take 2 puff(s) by in halation four times daily as needed for wheezing albuterol sulfate HFA (VENTOLIN HFA) 108 (90 Base) MCG/ACT inhaler Indications: Acute bronchitis, unspecified organism Inhale 2 puffs into the lungs 4 times daily as needed for Wheezing 1 Inhaler 0 04/28/2020 Active take 1 puff(s) by in halation every four hours as needed Albuterol Sulfate HFA 108 (90 Base) MCG/ACT 1 puff as needed Inhalation every 4 hrs Active albuterol 0.833 mg/ml / ipratropium bromide 0.167 mg/ml inhalation solution (3 sources) Anticholinergic, beta2-Adrenergic Agonist Start: 06-14-2023 ipratropium 0.5 mg-albuterol 2.5 mg (DUONEB) nebulizer solution 1 Dose Start: 06-11-2023 End: 06-14-2023 ipratropium 0.5 mg-albuterol 2.5 mg (DUONEB) nebulizer solution 1 Dose baclofen 10 mg oral tablet (20 sources) gamma-Aminobutyric Acid-ergic Agonist Start: 06-18-2021 End: 06-11-2023 baclofen (LIORESAL) 10 MG tablet 2 times daily 0 06/18/2021 Active Start: 06-18-2021 take 1 tablet by fermin th at bedtime baclofen (LIORESAL) 10 MG tablet take 1 tablet by mouth at bedtime 0 06/18/2021 Active Start: 09-10-2019 take 1 tablet by fermin th three times daily baclofen (LIORESAL) 10 MG tablet Indications: TMJ tenderness, left Take 1 tablet by mouth 3 times daily 90 tablet 1 09/10/2019 Active betamethasone 0.0005 mg/mg topical ointment (20 sources) Corticosteroid Start: 03-24-2022 End: 06-14-2023 betamethasone dipropionate (DIPROLENE) 0.05 % ointment Indications: Ear itching Apply topically daily. 15 g 0 03/24/2022 06/14/2023 Discontinued (Stop Taking at Discharge) Betamethasone Di propionate 0.05 % External for 10 Days Active betamethasone 0.5 mg/ml / clotrimazole 10 mg/ml topical cream (20 sources) Azole Antifungal, Corticosteroid Start: 09-21-2018 clotrimazole-betamethasone (LOTRISONE) 1-0.05 % cream Indications: Vaginal yeast infection APPLY TWICE A DAY NEEDED FOR VULVAR ITCHING NOT TO EXCEED 6 WEEKS CONTINUOUS USAGE 15 g 3 09/21/2018 Active calcium chloride 0.0014 meq/ml / potassium chloride 0.004 meq/ml / sodium chloride 0.103 meq/ml / sodium lactate 0.028 meq/ml injectable solution (1 source) Start: 12-08-2022 lactated ringers IV soln infusion cefTRIAXone (ROCEPHIN) 1,000 mg in sodium chloride 0.9 % 50 mL IVPB (mini-bag) (2 sources) Start: 06-11-2023 End: 06-16-2023 1,000 mg, IntraVENous, EVERY 24 HOURS, 5 doses, First dose on Tue06/11/23 at 2300, Last dose on Tue06/15/23 at 2300 Antimicrobial Indications: Pneumonia (CAP) CAP duration of therapy: 5 days Start: 06-10-2023 End: 06-11-2023 cefTRIAXone (ROCEPHIN) 1,000 mg in sodium chloride 0.9 % 50 mL IVPB (mini-bag) celecoxib 100 mg oral capsule (11 sources) Nonsteroidal Anti-inflammatory Drug Start: 03-18-2021 take 1 capsule by mouth twice daily celecoxib (CELEBREX) 100 MG capsule Take 1 capsule by mouth 2 times daily 180 capsule 1 03/18/2021 Active Start: 09-16-2020 take 1 capsule by mo ut twice daily celecoxib (CELEBREX) 100 MG capsule Indications: Multiple joint pain Take 1 capsule by mouth 2 times daily 180 capsule 1 09/16/2020 Active cetirizine hydrochloride 10 mg oral tablet (1 source) Histamine-1 Receptor Antagonist Start: 06-11-2023 cetirizine (ZYRTEC) tablet 10 mg codeine phosphate 2 mg/ml / guaiFENesin 20 mg/ml oral solution (3 sources) Opioid Agonist Start: 06-12-2023 guaiFENesin-co deine (GUAIFENESIN AC) 100-10 MG/5ML liquid 5 mL Start: 05-31-2023 take 10 mL by mouth every four hours before mealtime for cough guaiFENesin-codeine (GUAIFENESIN AC) 100-10 MG/5ML liquid take 10 milliliters by mouth every 4 hours if needed for cough fo... (REFER TO PRESCRIPTION NOTES). 0 05/31/2023 Active Continuous Blood Gluc Sensor (FREESTYLE KENA 14 DAY SENSOR) MISC (20 sources) Start: 01-28-2021 Continuous Blo od Gluc Sensor (FREESTYLE KENA 14 DAY SENSOR) MISC Start: 01-28-2021 Continuous Blo od Gluc Sensor (FREESTYLE KENA 14 DAY SENSOR) MISC apply 1 SENSOR TO THE BACK OF UPPER ARM REMOVE AND REPLACE every ... (REFER TO PRESCRIPTION NOTES). 0 01/28/2021 Active CPAP Machine MISC (2 sources) CPAP Machine MIS C by Does not apply route 0 Active CPAP Machine MIS C by Does not apply route 0 Suspended cyclobenzaprine hydrochloride 10 mg oral tablet (2 sources) Muscle Relaxant Start: 08-06-2022 End: 08-16-2022 take 1 tablet by mouth once daily as needed for muscle spasms cyclobenzaprine (FLEXERIL) 10 MG tablet Take 1 tablet by mouth nightly as needed for Muscle spasms 10 tablet 0 08/06/2022 08/16/2022 Active diclofenac sodium 75 mg delayed release oral tablet (20 sources) Nonsteroidal Anti-inflammatory Drug Start: 06-18-2021 take 1 tablet by mouth twice daily at mealtime diclofenac (VOLTAREN) 75 MG EC tablet take 1 tablet by mouth twice a day with food 0 06/18/2021 Active dicyclomine hydrochloride 20 mg oral tablet (17 sources) Anticholinergic Start: 09-10-2019 take 1 tablet by mouth three times daily dicyclomine (BENTYL) 20 MG tablet Indications: Irritable bowel syndrome with diarrhea Take 1 tablet by mouth three times daily 270 tablet 0 09/10/2019 Active Start: 03-23-2019 take 1 tablet by fermin th three times daily dicyclomine (BENTYL) 20 MG tablet Indications: Irritable bowel syndrome with diarrhea Take 1 tablet by mouth three times daily 270 tablet 0 03/23/2019 Active doxycycline hyclate 100 mg oral tablet (20 sources) Tetracycline-class Drug Start: 09-23-2022 End: 10-03-2022 take 1 tablet by mouth twice daily doxycycline hyclate (VIBRA-TABS) 100 MG tablet Indications: Acute non-recurrent pansinusitis Take 1 tablet by mouth 2 times daily for 10 days 20 tablet 0 09/23/2022 10/03/2022 Active Start: 06-09-2022 take 1 tablet by fermin th twice daily doxycycline hyclate (VIBRA-TABS) 100 MG tablet Take 1 tablet by mouth 2 times daily 20 tablet 0 06/09/2022 Active Start: 10-17-2019 End: 10-24-2019 take 1 tablet by mouth twice daily doxycycline hyclate (VIBRA-TABS) 100 MG tablet Indications: Acute maxillary sinusitis, recurrence not specified Take 1 tablet by mouth 2 times daily for 7 days 14 tablet 0 10/17/2019 10/24/2019 Active DULoxetine 60 mg delayed release oral capsule (20 sources) Serotonin and Norepinephrine Reuptake Inhibitor Start: 01-29-2021 take 1 capsule by mouth once daily DULoxetine (CYMBALTA) 60 MG extended release capsule Take 1 capsule by mouth nightly 0 01/29/2021 Active Start: 07-02-2020 take 1 capsule by mo [facility] once daily in the evening DULoxetine (CYMBALTA) 30 MG extended release capsule take 1 capsule by mouth every evening 0 07/02/2020 Active erythromycin 0.005 mg/mg ophthalmic ointment (7 sources) Macrolide, Macrolide Antimicrobial Start: 09-23-2022 apply 3.5 g into the eye(s) every six hours erythromycin (ROMYCIN) 5 MG/GM ophthalmic ointment Indications: Acute bacterial conjunctivitis of right eye Place into the right eye every 6 hours 3.5 g 0 09/23/2022 Active fenofibrate 160 mg oral tablet (20 sources) Peroxisome Proliferator Receptor alpha Agonist Start: 06-11-2023 fenofibrate (TRIGLIDE) tablet 160 mg Start: 03-14-2023 take 1 tablet by fermin th once daily fenofibrate (TRICOR) 54 MG tablet Indications: Essential hypertension , Chest discomfort , Hyperlipidemia, unspecified hyperlipidemia type , Tobacco abuse take 1 tablet by mouth once daily 90 tablet 3 03/14/2023 Active Start: 02-23-2019 take 1 tablet by fermin th once daily fenofibrate (TRICOR) 54 MG tablet Indications: Essential hypertension , Chest discomfort , Hyperlipidemia, unspecified hyperlipidemia type , Tobacco abuse take 1 tablet by mouth once daily 90 tablet 3 03/22/2022 Active fluocinonide 0.5 mg/ml topical cream (1 source) Corticosteroid Start: 03-12-2020 fluocinonide (LIDEX) 0.05 % cream Indications: Rhus dermatitis Apply topically 2 times daily. 1 Tube 0 03/12/2020 Active FLUoxetine 40 mg oral capsule (18 sources) Serotonin Reuptake Inhibitor Start: 10-31-2019 take 1 capsule by mouth once daily FLUoxetine (PROZAC) 40 MG capsule Take 1 capsule by mouth daily 90 capsule 1 10/31/2019 Active Start: 04-23-2019 take 1 capsule by mo ut once daily FLUoxetine (PROZAC) 40 MG capsule take 1 capsule by mouth once daily 90 capsule 1 04/23/2019 Active FreeStyle Kena 14 Day Sensor - (2 sources) FreeStyle Kena 14 Day Sensor - apply 1 SENSOR TO THE BACK OF UPPER ARM REMOVE AND REPLACE every ... (REFER TO PRESCRIPTION NOTES). for 28 Active furosemide 20 mg oral tablet (20 sources) Loop Diuretic Start: 05-16-2023 End: 05-15-2024 take 1 tablet by mouth once daily furosemide (LASIX) 20 MG tablet Indications: History of syncope , Essential hypertension , Tobacco abuse , Mixed hyperlipidemia Take 1 tablet by mouth daily 90 tablet 3 05/16/2023 05/15/2024 Active Start: 09-21-2022 Furosemide Act sandra 20 MG PO Q48H September 21, 2022 12:00am Start: 09-20-2022 take 1 tablet by fermin th once daily furosemide (LASIX) 20 MG tablet Indications: Lower leg edema take 1 tablet by mouth once daily 90 tablet 1 09/20/2022 Active Start: 03-24-2022 take 1 tablet by fermin th once daily furosemide (LASIX) 20 MG tablet Indications: Lower leg edema Take 1 tablet by mouth daily 90 tablet 1 03/24/2022 Active gabapentin 300 mg oral capsule (20 sources) Anti-epileptic Agent Start: 06-11-2023 gabapenti n (NEURONTIN) capsule 600 mg Start: 02-21-2019 take 1 tablet by fermin th three times daily gabapentin (NEURONTIN) 600 MG tablet Take 1 tablet by mouth 3 times daily. 0 02/21/2019 Active glipiZIDE er 10 mg 24 hr extended release oral tablet (20 sources) Sulfonylurea Start: 12-31-2019 take 2 tablets by mouth once daily glipiZIDE (GLUCOTROL XL) 10 MG extended release tablet Indications: Diabetes mellitus type 2 with complications, uncontrolled (HCC) Take 2 tablets by mouth daily 180 tablet 1 12/31/2019 Active Start: 09-10-2019 take 2 tablets by mo [facility] once daily glipiZIDE (GLUCOTROL XL) 10 MG extended release tablet Indications: Diabetes mellitus type 2 with complications, uncontrolled (HCC) Take 2 tablets by mouth daily 180 tablet 0 09/10/2019 Active Start: 05-09-2019 take 2 tablets by mo uth once daily glipiZIDE (GLUCOTROL XL) 10 MG extended release tablet Indications: Diabetes mellitus type 2 with complications, uncontrolled (HCC) Take 2 tablets by mouth daily 60 tablet 3 05/09/2019 Active 1000 ml glucose 100 mg/ml in jection (6 sources) Start: 06-11-2023 dextrose bolus 10% 125 mL Start: 06-11-2023 16 g (4 tablet ), Oral, PRN, Starting on 06/11/23 at 1616, Until Discontinued, Low blood sugar If blood glucose is LESS THAN 70 mg/dL and patient is alert and tolerating oral. Give 4 tablets (16g) Repeat blood glucose in 15 minutes. If blood glucose is LESS THAN 70 mg/dL, repeat treatment and recheck blood glucose in 15 minutes x 2. If blood glucose remains LESS THAN 70 mg/dL, notify provider. Start: 06-11-2023 take 1 mL intravenou sly every hour IntraVENous, at 100 mL/hr, CONTINUOUS PRN, if blood glucose remains LESS THAN 70 mg/dL after 2 dextrose 10% intravenous boluses or administration of glucagon, Starting on 06/11/23 at 1616 If blood glucose fails to stabilize after 2 dextrose 10% intravenous boluses or glucagon administration, start dextrose 10% infusion at 100 mL/hour and repeat blood glucose at 30 and 60 minutes. If blood glucose is GREATER THAN 70 mg/dL after 60 minutes, discontinue dextrose 10% infusion. Start: 06-11-2023 dextrose bolus 10% 125 mL Start: 06-11-2023 16 g (4 tablet ), Oral, PRN, Starting on 06/11/23 at 0043, Until Discontinued, Low blood sugar If blood glucose is LESS THAN 70 mg/dL and patient is alert and tolerating oral. Give 4 tablets (16g) Repeat blood glucose in 15 minutes. If blood glucose is LESS THAN 70 mg/dL, repeat treatment and recheck blood glucose in 15 minutes x 2. If blood glucose remains LESS THAN 70 mg/dL, notify provider. 12 hr guaiFENesin 600 mg extended release oral tablet (3 sources) Start: 06-11-2023 End: 06-21-2023 take 1 tablet by mouth twice daily guaiFENesin (MUCINEX) 600 MG extended release tablet Take 1 tablet by mouth 2 times daily for 7 days 14 tablet 0 06/14/2023 06/21/2023 Active Homeopathic Products (PROSACEA EX) (17 sources) Homeopathic Products (PROSACEA EX) Apply topically 0 Active 3 ml insulin glargine 100 unt/ml pen injector (20 sources) Insulin Analog Start: 2019 insulin glargi ne (LANTUS SOLOSTAR) 100 UNIT/ML injection pen Indications: Diabetes mellitus type 2 with complications, uncontrolled (HCC) Inject 30 Units into the skin 2 times daily 5 pen 5 2019 Active Insulin Glargine (TOUJEO SOLOSTAR SC) Inject 92 Units into the skin 92 units twice daily 0 Active Insulin Glargine (TOUJEO SOLOSTAR SC) Inject 88 Units into the skin 80 units twice daily 0 Active Insulin Glargine (TOUJEO SOLOSTAR SC) Inject into the skin 80 units twice daily 0 Active insulin lispro 100 unt/ml injectable solution (20 sources) Insulin Analog Start: 06-11-2023 End: 06-11-2023 inject 15 [IU] by subcutaneous injection three times daily at mealtime 15 Units, SubCUTAneous, 3 TIMES DAILY WITH MEALS, First dose on 06/11/23 at 1700, Until Discontinued Substituted for Insulin lispro U-200 (HumaLOG KwikPen). Start: 09-21-2022 Insulin Lispro (Humalog Kwikpen Insulin) 200 unit/mL (3 mL) insulin pen Active sliding scale dose SUBCUT As Directed September 21, 2022 12:00am Start: 03-10-2020 HUMALOG KWIKPE N 200 UNIT/ML SOPN pen Indications: Diabetes mellitus type 2 with complications, uncontrolled INJECT 15 UNITS INTO THE SKIN 3 TIMES DAILY WITH MEALS 15 mL 5 03/10/2020 Active Start: 2019 insulin lispro (HUMALOG KWIKPEN) 200 UNIT/ML SOPN pen Indications: Diabetes mellitus type 2 with complications, uncontrolled (HCC) Inject 15 Units into the skin 3 times daily (with meals) 5 pen 5 2019 Active levocetirizine dihydrochloride 5 mg oral tablet (20 sources) Histamine-1 Receptor Antagonist Start: 06-24-2020 take 1 tablet by mouth once daily in the evening levocetirizine (XYZAL) 5 MG tablet Indications: Seasonal allergic rhinitis due to pollen take 1 tablet by mouth every evening 90 tablet 3 09/23/2022 Active levoFLOXacin 750 mg oral tablet (2 sources) Quinolone Antimicrobial Start: 06-14-2023 End: 06-21-2023 take 1 tablet by mouth once daily levoFLOXacin (LEVAQUIN) 750 MG tablet Take 1 tablet by mouth daily for 7 days 7 tablet 0 06/14/2023 06/21/2023 Active lisinopril 10 mg oral tablet (20 sources) Angiotensin Converting Enzyme Inhibitor Start: 05-16-2023 End: 05-15-2024 take 1 tablet by mouth once daily lisinopril (PRINIVIL;ZESTRIL) 10 MG tablet Indications: History of syncope , Essential hypertension , Tobacco abuse , Mixed hyperlipidemia Take 1 tablet by mouth daily 90 tablet 3 05/16/2023 05/15/2024 Active Start: 11-25-2015 take 1 tablet by fermin th once daily lisinopril (PRINIVIL;ZESTRIL) 10 MG tablet Indications: Essential hypertension , Chest discomfort , Hyperlipidemia, unspecified hyperlipidemia type , Tobacco abuse take 1 tablet by mouth once daily 90 tablet 3 04/08/2022 Active loratadine 10 mg oral capsule (18 sources) take 1 capsule by mouth once daily loratadine (CLARITIN) 10 MG capsule Take 10 mg by mouth daily 0 Active meclizine hydrochloride 25 mg oral tablet (2 sources) Antiemetic Start : 07-13 End: 07-23 take 1 tablet by mouth three times daily as needed for dizziness meclizine (ANTIVERT) 25 MG tablet Indications: Vertigo Take 1 tablet by mouth 3 times daily as needed for Dizziness 30 tablet 0 07/13/2019 07/23/2019 Active methylPREDNISolone 40 mg injection (1 source) Corticosteroid Start : 06-11 methylPREDNISolone sodium succ (SOLU-MEDROL) injection 40 mg 24 hr metoprolol succinate 25 mg extended release oral tablet (20 sources) beta-Adrenergic Tana Start : 05-16 take 1 tablet by mouth at bedtime metoprolol succinate (TOPROL XL) 25 MG extended release tablet Indications: History of syncope , Essential hypertension , Tobacco abuse , Mixed hyperlipidemia Take 1 tablet by mouth in the morning and at bedtime 180 tablet 3 05/16/2023 Active Start: 02-23-2019 take 1 tablet by fermin th at bedtime metoprolol succinate (TOPROL XL) 25 MG extended release tablet Indications: Essential hypertension Take 1 tablet by mouth in the morning and at bedtime 180 tablet 3 10/22/2022 Active Misc Natural Products (OSTEO BI-FLEX ADV DOUBLE ST PO) (20 sources) take 2 tablets by mouth once daily Misc Natural Products (OSTEO BI-FLEX ADV DOUBLE ST PO) Take 2 tablets by mouth daily 0 Active montelukast 10 mg oral tablet (20 sources) Leukotriene Receptor Antagonist Start: 04-04-20 take 1 tablet by mouth at bedtime montelukast (SINGULAIR) 10 MG tablet Indications: Seasonal allergic rhinitis due to pollen , Exacerbation of asthma, unspecified asthma severity, unspecified whether persistent take 1 tablet by mouth at bedtime 90 tablet 1 09/20/2022 Active Multiple Vitamins-Minerals (MULTIVITAMIN ADULT) TABS (17 sources) take 1 tablet by mouth every other day Multiple Vitamins-Minerals (MULTIVITAMIN ADULT) TABS Take 1 tablet by mouth every other day 0 Active Multiple Vitamins-Minerals (MULTIVITAMIN WOMEN PO) (7 sources) Multiple Vitamins-Minerals (MULTIVITAMIN WOMEN PO) Take by mouth every other day 0 Active nicotine 4 mg inhalation solution (16 sources) Cholinergic Nicotinic Agonist Start: 01-23-20 nicotine (NICOTROL) 10 MG inhaler Indications: Cigarette nicotine dependence without complication Inhale 1 puff into the lungs as needed for Smoking cessation 1 Inhaler 3 01/23/2020 Active NONFORMULARY (20 sources) NONFORMULARY Med ical Marijuana Card 0 Active nystatin 201955 unt/ml oral suspension (1 source) Polyene Antifungal Start: 09-23-20 End: 10-03-19 take 5 mL by mouth four times daily nystatin (MYCOSTATIN) 360455 UNIT/ML suspension Indications: Oral candidiasis Take 5 mLs by mouth 4 times daily for 10 days 200 mL 0 09/23/2022 10/03/2022 Active ondansetron (ZOFRAN-ODT) disintegrating tablet 4 mg (1 source) Start: 06-11-20 ondansetron (ZOFRAN-ODT) disintegrating tablet 4 mg predniSONE 10 mg oral tablet (2 sources) Start: 06-14-20 predniSONE (DELTASONE) 10 MG tablet 4 tabs daily for 3 days, 3 tabs daily for 3 days, 2 tabs daily for 3 days, 1 tab daily for 3 days 30 tablet 0 06/14/2023 Active tiZANidine 4 mg oral tablet (20 sources) Central alpha-2 Adrenergic Agonist Start: 02-22-20 tiZANidine (ZANAFLEX) 4 MG tablet 4 mg nightly 0 02/21/2019 Active traMADol hydrochloride 50 mg oral tablet (20 sources) Opioid Agonist Start: 06-11-20 End: 06-12-20 traMADol (ULTRAM) tablet 50 mg Start: 09-21-2022 take 100 mg by mouth twice geraldo ly Tramadol Active 100 MG PO Twice daily September 21, 2022 12:00am Start: 12-26-2022 take 2 tablets by mo uth twice daily traMADol (ULTRAM) 50 MG tablet take 2 tablets by mouth twice a day if needed 0 09/20/2022 Active Start: 09-01-2015 traMADol (ULTR AM) 50 MG tablet Take 1 to 2 tablets every 12 hours as needed for pain 30 tablet 0 09/01/2015 Active Completed/Discontinued Medications Medication Drug Class(es) Dates Sig (Normalized) Sig (Original) aspirin 81 mg delayed release oral tablet (20 sources) Platelet Aggregation Inhibitor, Nonsteroidal Anti-inflammatory Drug Start: 06-11-2023 take 81 mg by mouth once daily 81 mg, Oral, DAILY, First dose on 06/11/23 at 0900, Until Discontinued take 1 tablet by mouth once garrett y aspirin 81 MG tablet Take 1 tablet by mouth daily 0 Active atorvastatin 40 mg oral tablet (20 sources) HMG-CoA Reductase Inhibitor Start: 06-11-2023 take 80 mg by mouth once daily 80 mg, Oral, NIGHTLY, First dose on 06/11/23 at 0100, Until Discontinued Start: 05-16-2023 take 1 tablet by fermin th once daily at bedtime atorvastatin (LIPITOR) 80 MG tablet Indications: History of syncope , Essential hypertension , Tobacco abuse , Mixed hyperlipidemia Take 1 tablet by mouth nightly at bedtime. 90 tablet 3 05/16/2023 Active Start: 08-24-2018 take 1 tablet by fermin th at bedtime atorvastatin (LIPITOR) 80 MG tablet Indications: Dyslipidemia take 1 tablet by mouth at bedtime 90 tablet 3 04/16/2022 Active azithromycin (ZITHROMAX) 500 mg in 250 mL addavial (1 source) Start: 06-10-2023 End: 06-11-2023 azithromycin (ZITHROMAX) 500 mg in 250 mL addavial benzonatate 100 mg oral capsule (1 source) Non-narcotic Antitussive Start: 06-11-2023 take 100 mg by mouth three times daily as needed 100 mg, Oral, 3 TIMES DAILY PRN, Starting on 06/11/23 at 0043, Until Discontinued, Cough dextromethorphan hydrobromide 2 mg/ml / guaiFENesin 20 mg/ml oral suspension (1 source) Uncompetitive H-bbucim-M-asparta te Receptor Antagonist, Sigma-1 Agonist Start: 09-16-2023 take 5 mL by mouth every four hours as needed 5 mL, Oral, EVERY 4 HOURS PRN, Starting on 06/11/23 at 0043, Until Discontinued, Cough empagliflozin 10 mg oral tablet (20 sources) Sodium-Glucose Cotransporter 2 Inhibitor Start: 06-11-2023 take 10 mg by mouth three times daily 10 mg, Oral, DAILY, First dose on 06/11/23 at 0900, Until Discontinued Indication of Use: Heart Failure (preserved EF) Note: Discontinuation of SGLT2 inhibitor therapy 3 days prior to surgery or major procedures is recommended given the risk for euglycemic diabetic ketoacidosis. Start: 09-07-2022 take 10 mg by mouth once daily JARDIANCE 10 mg daily orally Aug, Active 0.4 ml enoxaparin sodium 100 mg/ml prefilled syringe (1 source) Low Molecular Weight Heparin Start: 06-11-2023 inject 40 mg by subcutaneous injection once daily 40 mg, SubCUTAneous, DAILY, First dose on 06/11/23 at 0900, Until Discontinued Indication of Use: Prophylaxis-DVT/PE famotidine 20 mg oral tablet (1 source) Histamine-2 Receptor Antagonist Start: 06-11-2023 take 20 mg by mouth twice daily 20 mg, Oral, 2 TIMES DAILY, First dose on 06/11/23 at 0100, Until Discontinued fluticasone propionate 0.05 mg/actuat metered dose nasal spray (20 sources) Corticosteroid Start: 06-11-2023 take 2 spray(s) nasal route once daily 2 spray, Each Nostril, DAILY, First dose on 06/11/23 at 0900, Until Discontinued Start: 09-21-2022 Fluticasone Pr opionate Active 2 SPRAY INTRANASAL Daily September 21, 2022 12:00am Start: 06-09-2022 take 2 spray(s) nasa l route once daily fluticasone (FLONASE) 50 MCG/ACT nasal spray Indications: Seasonal allergic rhinitis due to pollen 2 sprays by Each Nostril route daily 3 each 1 06/09/2022 Active Start: 06-24-2020 take 2 spray(s) nasa l route once daily fluticasone (FLONASE) 50 MCG/ACT nasal spray Indications: Seasonal allergic rhinitis due to pollen 2 sprays by Each Nostril route daily 3 Bottle 1 06/24/2020 Active Start: 07-26-2019 take 2 spray(s) nasa l route once daily fluticasone (FLONASE) 50 MCG/ACT nasal spray Indications: Ear fullness, bilateral 2 sprays by Each Nostril route daily 3 Bottle 1 07/26/2019 Active Fluticasone Prop ionate 50 MCG/ACT Nasal for 30 Days Active glucagon (rdna) 1 mg injection (2 sources) Antihypoglycemic Agent Start: 06-11-2023 take 1 mL intravenously every hour 1 mg, IntraMUSCular, PRN, Starting on 06/11/23 at 1616, Until Discontinued, Low blood sugar, Blood glucose less than 70 mg/dL and patient NOT ALERT or NPO and does not have IV access. After administration, attempt intravenous access and start D5W at 100 mL/hr. Repeat blood glucose in 15 minutes x2 and notify provider. Start: 06-11-2023 inject 1 mg by subcu taneous injection every hour as needed 1 mg, SubCUTAneous, PRN, Starting on 06/11/23 at 0043, Until Discontinued, Low blood sugar, Blood glucose LESS THAN 70 mg/dL and patient NOT ALERT or NPO and does not have IV access. After administration, attempt intravenous access and start dextrose 10% at 100 mL/hr. Repeat blood glucose in 15 minutes x 2 and notify provider. ibuprofen 400 mg oral tablet (1 source) Nonsteroidal Anti-inflammatory Drug Start: 06-11-2023 take 400 mg by mouth three times daily at mealtime 400 mg, Oral, 3 TIMES DAILY WITH MEALS, First dose on 06/11/23 at 0800, Until Discontinued Do not crush or break. Substituted for Diclofenac (VOLTAREN). 3 ml insulin, regular, human 500 unt/ml pen injector (20 sources) Insulin Start: 06-11-2023 inject 100 [IU] by subcutaneous injection twice daily at mealtime 100 Units, SubCUTAneous, 2 TIMES DAILY WITH MEALS, First dose on 06/11/23 at 1700, Until Discontinued This is highly concentrated insulin. Patient may use home supply. Start: 09-21-2022 Insulin Regula r Hum U-500 Conc (Humulin R U-500 (Conc) Flippen) 500 unit/mL (3 mL) insulin pen Active 120 UNIT SUBCUT Twice daily Aquiles 27th, 2022 12:00am insulin regular human (HUMULIN R U-500) 500 UNIT/ML concentrated injection vial Inject into the skin 2 times daily (with meals) 120 units twice daily 0 Active insulin regular human (HUMULIN R U-500) 500 UNIT/ML concentrated injection vial Inject into the skin 120 units @ breakfast, 110 units with dinner 0 Active insulin regular human (HUMULIN R U-500) 500 UNIT/ML concentrated injection vial Inject into the skin 110 units @ breakfast, 100 units with dinner 0 Active Iopamidol (2 sources) Radiographic Contrast Agent Start: 07-30-2019 End: 07-30-2019 iopamidol (ISOVUE-370) 76 % injection 18 mL Start: 07-30-2019 End: 07-30-2019 iopamidol (ISOVUE-370) 76 % injection 75 mL iopamidol (ISOVUE-370) 76 % injection 75 mL (1 source) Start: 06-10-2023 End: 06-10-2023 iopamidol (ISOVUE-370) 76 % injection 75 mL 10 ml lidocaine hydrochloride 10 mg/ml injection (2 sources) Antiarrhythmic, Amide Local Anesthetic Start: 01-20-2021 End: 01-20-2021 lidocaine PF 1 % injection 1 ml morphine sulfate 4 mg/ml cartridge (1 source) Opioid Agonist Start: 08-06-2022 End: 08-06-2022 morphine injection 4 mg nitroglycerin 0.3 mg sublingual tablet (1 source) Nitrate Vasodilator Start: 09-29-2022 End: 09-29-2022 nitroGLYCERIN (NITROSTAT) SL tablet 0.3 mg Start: 09-29-2022 End: 09-29-2022 nitroGLYCERIN (NITROSTAT) SL tablet 0.3 mg polyethylene glycol [id number] mg powder for oral solution (1 source) Osmotic Laxative Start: 06-11-2023 17 g, Oral, D AILY PRN, Starting on 06/11/23 at 0043, Until Discontinued, Constipation First line therapy for constipation regadenoson (LEXISCAN) injection 0.4 mg (1 source) Start: 03-03-2021 End: 03-03-2021 regadenoson (LEXISCAN) injection 0.4 mg rOPINIRole 1 mg oral tablet (20 sources) Nonergot Dopamine Agonist Start: 06-11-2023 take 4 mg by mouth once daily 4 mg, Oral, NIGHTLY, First dose on 06/11/23 at 0100, Until Discontinued Start: 11-03-2015 rOPINIRole (RE QUIP) 4 MG tablet TAKE 1 TABLET DAILY 90 tablet 0 11/03/2015 Active 5 ml sodium chloride 9 mg/ml injection (5 sources) Start: 06-11-2023 take 1 dose intravenously twice daily 5-40 mL, IntraVENous, EVERY 12 HOURS SCHEDULED (2 times per day), First dose on 06/11/23 at 0900, Until Discontinued For Line Patency: Peripheral IV = 5 mL; Midline or Central Line = 10 mL/lumen. If following IV push medication, administer flush at same rate as the IV push. Flush volume is determined by type of infusion therapy being given. For non-viscous solutions use: Peripheral IV = 5 mL Midline or Central Line = 10 mL/lumen For viscous solutions (i.e. blood components, parenteral nutrition, contrast media, or after obtaining blood sample) use: Peripheral IV = 10 mL Midline or Central Line = 20 mL/lumen Start: 06-11-2023 End: 06-12-2023 IntraVENous, at 75 mL/hr, CONTINUOUS, Starting on 06/11/23 at 0100 Start: 06-11-2023 take 5-40 mL intrave nously once as needed 5-40 mL, IntraVENous, PRN, Starting on 06/11/23 at 0043, Until Discontinued, Line Care, After every IV line use For Line Patency: Peripheral IV = 5 mL; Midline or Central Line = 10 mL/lumen. If following IV push medication, administer flush at same rate as the IV push. Flush volume is determined by type of infusion therapy being given. For non-viscous solutions use: Peripheral IV = 5 mL Midline or Central Line = 10 mL/lumen For viscous solutions (i.e. blood components, parenteral nutrition, contrast media, or after obtaining blood sample) use: Peripheral IV = 10 mL Midline or Central Line = 20 mL/lumen Start: 06-10-2023 End: 06-10-2023 sodium chloride 0.9 % bolus 1,000 mL technetium sestamibi (CARDIOLITE) injection 30 millicurie (2 sources) Start: 03-04-2021 End: 03-04-2021 technetium sestamibi (CARDIOLITE) injection 30 millicurie Start: 03-03-2021 End: 03-03-2021 technetium sestamibi (CARDIO LITE) injection 30 millicurie technetium sulfur colloid eg g (NYCOMED-SC) solution 1 millicurie (2 sources) Start: 08-22-2019 End: 08-22-2019 technetium sulfur colloid eg g (NYCOMED-SC) solution 1 millicurie Start: 08-16-2019 End: 08-16-2019 technetium sulfur colloid eg g (NYCOMED-SC) solution 1 millicurie water 1000 mg/ml injectable solution (3 sources) Start: 06-11-2023 End: 06-12-2023 sterile water injection Problems Active Problems Problem Classification Problem Date Documented Da te Episodic/Chronic Abdominal pain (20 sources) Generalized abdominal pain; Translations: [Abdominal pain] 07-09-2015 Episodic Administrative/social admission (4 sources) Counseling procedure with explicit context; Translations: [Tobacco abuse counseling] Onset: 08-04-2023 Episodic Complication of device; implant or graft (1 source) Pain due to other internal prosthetic devices, implants and grafts, initial encounter Episodic Conditions associated with dizziness or vertigo (4 sources) Dizziness; Translations: [Dizziness and giddiness] Onset: 08-04-2023 Episodic Diabetes mellitus with complications (20 sources) Diabetic neuropathy; Translations: [Hyperglycemia due to type 2 diabetes mellitus] Onset: 01-31-2013 12-21-2017 Chronic Diabetes mellitus without complication (20 sources) Type 2 diabetes mellitus; Translations: [Type 2 diabetes mellitus with unspecified complications] Onset: 07-03-2013 07-06-2015 Chronic Disorders of lipid metabolism (20 sources) Dyslipidemia; Translations: [Hypertriglyceridemi a] Onset: 07-06-2015 12-23-2017 Chronic Essential hypertension (20 sources) Essential hypertension; Translations: [Essential (primary) hypertension] Onset: 12-23-2017 12-23-2017 Chronic Headache; including migraine (1 source) Scalp tenderness; Translations: [Scalp tenderness] Episodic Immunity disorders (1 source) Other specified disorders involving the immune mechanism, not elsewhere classified; Translations: [OTH SPEC D/O INVOLV IMMUNE MECH NEC] Onset: 05-02-2022 Chronic Menopausal disorders (1 source) Menopausal and female climacteric states; Translations: [Menopausal and female climacteric states] Onset: 09-06-2023 Chronic Mood disorders (20 sources) Depressive disorder; Translations: [Major depressive disorder, single episode, unspecified] Onset: 01-31-2013 07-06-2015 Chronic Nonspecific chest pain (4 sources) Chest discomfort; Translations: [Other chest pain] Onset: 08-04-2023 Episodic Osteoarthritis (1 source) Unspecified osteoarthritis, unspecified site; Translations: [UNSPECIFIED OSTEOARTHRITIS UNS SITE] Onset: 04-06-2022 Chronic Other circulatory disease (3 sources) Orthostatic hypotension; Translations: [Orthostatic hypotension] Onset: 08-04-2023 Episodic Other injuries and conditions due to external causes (1 source) Injury of head; Translations: [Traumatic injury of head, initial encounter] Episodic Other injuries and conditions due to external causes (18 sources) Acute organ dysfunction due to systemic inflammatory response syndrome; Translations: [SIRS without infection with organ dysfunction] Onset: 07-05-2015 07-08-2015 Other liver diseases (20 sources) Steatosis of liver; Translations: [Fatty (change of) liver, not elsewhere classified] Onset: 03-09-2021 03-09-2021 Chronic Other liver diseases (1 source) Large liver; Translations: [Hepatomegaly, not elsewhere classified] Episodic Other lower respiratory disease (1 source) Rib pain; Translations: [Pleurodynia] Episodic Other lower respiratory disease (3 sources) Shortness of breath; Translations: [Shortness of breath] Onset: 08-04-2023 Episodic Other nervous system disorders (2 sources) Chronic pain; Translations: [Other chronic pain] Chronic Other nervous system disorders (2 sources) Complex regional pain syndrome of lower limb; Translations: [Complex regional pain syndrome I of left lower limb] Chronic Other nervous system disorders (5 sources) Other chronic pain; Translations: [OTHER CHRONIC PAIN] Onset: 10-21-2022 Chronic Other nervous system disorders (5 sources) Chronic pain syndrome; Translations: [CHRONIC PAIN SYNDROME] Onset: 04-06-2022 Chronic Other non-traumatic joint disorders (2 sources) Pain in left shoulder; Translations: [Pain in left shoulder] Onset: 07-21-2023 Episodic Other nutritional; endocrine; and metabolic disorders (2 sources) Body mass index 30+ - obesity; Translations: [Body mass index (BMI) 33.0-33.9, adult] Chronic Other nutritional; endocrine; and metabolic disorders (1 source) Abnormal weight gain; Translations: [Abnormal weight gain] Onset: 09-06-2023 Episodic Peripheral and visceral atherosclerosis (1 source) Intermittent claudication; Translations: [Peripheral vascular disease, unspecified] Chronic Pneumonia (except that caused by tuberculosis or sexually transmitted disease) (5 sources) Infective pneumonia; Translations: [Pneumonia, unspecified organism] Onset: 06-10-2023 06-10-2023 Episodic Residual codes; unclassified (18 sources) Tobacco user; Translations: [Tobacco abuse] Onset: 12-21-2017 12-21-2017 Chronic Residual codes; unclassified (2 sources) Obstructive sleep apnea syndrome; Translations: [Obstructive sleep apnea (adult) (pediatric)] Chronic Residual codes; unclassified (3 sources) Obstructive sleep apnea (adult) (pediatric); Translations: [Obstructive sleep apnea (adult) (pediatric)] Onset: 08-04-2023 Chronic Residual codes; unclassified (3 sources) Personal history of other specified conditions; Translations: [Personal history of other specified conditions] Onset: 08-04-2023 Episodic Residual codes; unclassified (1 source) Pain, unspecified; Translations: [Pain, unspecified] Onset: 07-21-2023 Episodic Spondylosis; intervertebral disc disorders; other back problems (19 sources) Degeneration of lumbar intervertebral disc; Translations: [Other intervertebral disc degeneration, lumbar region] Onset: 04-13-2022 Chronic Thyroid disorders (1 source) Goiter; Translations: [Thyromegaly] Chronic Unclassified (1 source) Patient encounter status; Translations: [Preoperative testing] Unclassified (1 source) Pain due to other internal prosthetic devices, implants and grafts, initial encounter; Translations: [Pain due to other internal prosthetic devices, implants and grafts, initial encounter] Onset: 10-04-2022 Unclassified (1 source) Encounter for preprocedural laboratory examination; Translations: [Encounter for preprocedural laboratory examination] Onset: 09-30-2022 Unclassified (1 source) M79.10 - Myalgia, unspecified site; Translations: [M79.10 - Myalgia, unspecified site] Onset: 03-02-2022 Unclassified (4 sources) LOW BACK PAIN, UNSPECIFIED; Translations: [LOW BACK PAIN, UNSPECIFIED] Onset: 10-25-2022 Unclassified (2 sources) Cough, unspecified; Translations: [Cough, unspecified] Onset: 08-04-2023 Past or Other Problems Problem Classification Problem Date Documented Da te Episodic/Chronic Anal and rectal conditions (20 sources) Rectal abscess; Translations: [Perirectal abscess] Onset: 12-20-2017 12-23-2017 Episodic Calculus of urinary tract (20 sources) Kidney stone; Translations: [Ureteric stone] Onset: 07-03-2013 Resolved: 12-21-2017 08-13-2013 Episodic Diseases of mouth; excluding dental (1 source) Dry mouth, unspecified; Translations: [Dry mouth, unspecified] Onset: 03-25-2023 Episodic Genitourinary symptoms and ill-defined conditions (20 sources) Carl hematuria; Translations: [Gross hematuria] Onset: 07-19-2013 07-19-2013 Episodic Malaise and fatigue (3 sources) Tired; Translations: [Other fatigue] Onset: 11-23-2022 Episodic Other aftercare (1 source) 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; 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] Onset: 09-17-2021 Episodic Other and unspecified benign neoplasm (20 sources) Benign neoplasm of skin of trunk; Translations: [Melanocytic nevi of trunk] Onset: 03-24-2022 03-24-2022 Episodic Other connective tissue disease (20 sources) Fibromyalgia; Translations: [Fibromyalgia] Onset: 01-31-2013 12-21-2017 Episodic Other connective tissue disease (20 sources) Pain in upper limb; Translations: [Pain in arm, unspecified] Onset: 01-31-2013 01-31-2013 Episodic Other diseases of kidney and ureters (20 sources) Hydronephrosis; Translations: [Unspecified hydronephrosis] Onset: 04-28-2016 Resolved: 12-21-2017 12-21-2017 Episodic Other injuries and conditions due to external causes (20 sources) Acute organ dysfunction due to systemic inflammatory response syndrome; Translations: [Systemic inflammatory response syndrome (SIRS) of non-infectious origin with acute organ dysfunction] Onset: 07-05-2015 07-08-2015 Episodic Other non-traumatic joint disorders (20 sources) Multiple joint pain; Translations: [Pain in unspecified joint] Onset: 09-16-2020 09-16-2020 Episodic Other screening for suspected conditions (not mental disorders or infectious disease) (20 sources) Liver function tests abnormal; Translations: [Abnormal results of liver function studies] Onset: 03-09-2021 Episodic Pancreatic disorders (not diabetes) (20 sources) Idiopathic acute pancreatitis; Translations: [Idiopathic acute pancreatitis without necrosis or infection] Onset: 07-06-2015 07-06-2015 Episodic Residual codes; unclassified (20 sources) Tobacco user; Translations: [Tobacco use] Onset: 12-21-2017 12-21-2017 Episodic Residual codes; unclassified (1 source) Tobacco use; Translations: [Tobacco use] Onset: 12-21-2017 Episodic Spondylosis; intervertebral disc disorders; other back problems (20 sources) Lumbago with sciatica; Translations: [Lumbago with sciatica, left side] Onset: 04-15-2022 Episodic Syncope (8 sources) Situational syncope; Translations: [Syncope and collapse] Onset: 09-29-2022 Episodic Unclassified (1 source) LOW BACK PAIN, UNSPECIFIED; Translations: [LOW BACK PAIN, UNSPECIFIED] Onset: 01-27-2023 Unclassified (1 source) Cough, unspecified; Translations: [Cough, unspecified] Onset: 08-04-2023 Results Test Name Value Interpretation Reference Range Facility Estradiolon 09-07-2023 Estradiol <5.0 Normal [facility] Comment on above: Result Comment: FEMALES: Normally menstruating Luteal phase 60-232 Follicular phase 31-90 Midcycle phase 60-533 Postmenopausal (untreated) <138 Fulvestrant treatment will show an increased estradiol concentration with this methodology. Alternate methodologies are available upon request. Performed By: #### E 2, FSH #### [address] [address] Judicial Registrar: Melvin Santoyo MD #### CBC #### [address] [place] [address] Judicial Registrar: Phillip Camarena MD Follicle Stim. Hormon 2022 Follicle Stim. Horm 72.2 mIU/mL Normal [facility] Comment on above: Result Comment: Refe rence Range: Male: 1.5-12.4 Ovulating Female: Follicular Phase 3.5-12.5 Ovulation Phase 4.7-21.5 Luteal Phase 1.7-7.7 Postmenopausal Female: 25.8-134.8 Performed By: #### E 2, FSH #### [address] [address] Judicial Registrar: Melvin Santoyo MD #### CBC #### [address] [place] [address] Judicial Registrar: Phillip Camarena MD [facility] Erythrocyte distribution width (RBC) [Ratio] 14.3 % Normal 11.8-14.4 [facility] Comment on above: Performed By: #### E 2, FSH #### [address] [address] Judicial Registrar: Melvin Santoyo MD #### CBC #### [address] [place] [address] Judicial Registrar: Phillip Camarena MD Hematocrit (Bld) [Volume fraction] 43.7 % Normal 36.3-47.1 [facility] Comment on above: Performed By: #### E 2, FSH #### [address] [address] Judicial Registrar: Melvin Santoyo MD #### CBC #### [address] [place] [address] Judicial Registrar: Phillip Camarena MD Hemoglobin (Bld) [Mass/Vol] 14.4 g/dL Normal 11.9-15.1 [facility] Comment on above: Performed By: #### E 2, FSH #### [address] [address] Judicial Registrar: Melivn Santoyo MD #### CBC #### [address] [place] [address] Judicial Registrar: Phillip Camarena MD MCH (RBC) [Entitic mass] 31.9 pg Normal 25.2-33.5 [facility] Comment on above: Performed By: #### E 2, FSH #### [address] [address] Judicial Registrar: Melvin Santoyo MD #### CBC #### [address] [place] [id number] Judicial Registrar: Phillip Camarena MD MCHC (RBC) [Mass/Vol] 33.0 g/dL Normal 28.4-34.8 [facility] Comment on above: Performed By: #### E 2, FSH #### [address] [address] Judicial Registrar: Melvin Santoyo MD #### CBC #### [address] [place] [address] Judicial Registrar: Phillip Camarena MD MCV (RBC) [Entitic vol] 96.7 fL Normal 82.6-102.9 [facility] Comment on above: Performed By: #### E 2, FSH #### [address] [address] Judicial Registrar: Melvin Santoyo MD #### CBC #### [address] [place] [address] Judicial Registrar: Phillip Camarena MD NRBC Automated 0.0 per 100 WBC Normal 0.0 [facility] Comment on above: Performed By: #### E 2, FSH #### [facility] [address] [place] [address] Judicial Registrar: Melvin Santoyo MD #### CBC #### [facility] [address] [place], [place] [phone] Judicial Registrar: Phillip Camarena MD Platelet mean volume (Bld) [Entitic vol] 9.2 fL Normal 8.1-13.5 [facility] Comment on above: Performed By: #### E 2, FSH #### [facility] [address] [place] [address] Judicial Registrar: Melvin Santoyo MD #### CBC #### [facility] [address] [place] [address] [place] [address] Judicial Registrar: Phillip Camarena MD Platelets (Bld) [#/Vol] 356 10*3/uL Normal 138-453 [facility] Comment on above: Performed By: #### E 2, FSH #### [facility] [address] [place] [address] Judicial Registrar: Melvin Santoyo MD #### CBC #### [facility] [address] [place] [address] [address] [place], [place] [phone] Judicial Registrar: Phillip Camarena MD RBC (Bld) [#/Vol] 4.52 10*6/uL Normal 3.95-5.11 [facility] Comment on above: Performed By: #### E 2, FSH #### [facility] [address] [place] [address] Judicial Registrar: Melvin Santoyo MD #### CBC #### [facility] [address] [place], [place] [phone] Judicial Registrar: Phillip Camarena MD WBC (Bld) [#/Vol] 8.2 10*3/uL Normal 3.5-11.3 [facility] Comment on above: Performed By: #### E 2, FSH #### [facility] [address] [place] [address] Judicial Registrar: Melvin Santoyo MD #### CBC #### [facility] [address] [place] [address] [place] [address] Judicial Registrar: Phillip Camarena MD TSH w/reflex to FT4on 2022 Thyroid Stim. Horm. 1.08 uIU/mL Normal 0.30-5.00 [facility] Comment on above: Performed By: #### E 2, FSH #### [facility] [address] [place], [place] [id number] Judicial Registrar: Melvin Santoyo MD #### CBC #### [address] [place] [address] Judicial Registrar: Phillip Camarena MD XR CHEST (2 VW)on 08-05-2023 XR CHEST (2 VW) EXAMINATION: TWO XRAY VIEWS OF THE CHEST 08/04/2023 2:47 pm COMPARISON: 06/22/2023 HISTORY: ORDERING SYSTEM PROVIDED HISTORY: History of syncope TECHNOLOGIST PROVIDED HISTORY: sob, decreased lung auscultation on PE FINDINGS: The lungs are without acute focal process. There is no effusion or pneumothorax. The cardiomediastinal silhouette is stable. The osseous structures are stable. IMPRESSION: No acute process. Interpreted by: Mario Alberto Phan MD Signed by: Mario Alberto Phan MD 08/05/23 Final result Normal [facility] Hemoglobin A1Con 08-04-2023 Glucose [Mass/Vol] 217 mg/dL Normal [facility] Comment on above: Result Comment: The ADA and AACC recommend providing the estimated average glucose result to permit better patient understanding of their HBA1c result. Performed By: #### E 2, FSH #### [facility] [address] [place], [place] [id number] Judicial Registrar: Melvin Santoyo MD #### CBC #### [facility] [address] [place] [address] [address] [place], [place] [phone] Judicial Registrar: Phillip Camarena MD HbA1c (Bld) [Mass fraction] 9.2 % High 4.0-6.0 [facility] Comment on above: Performed By: #### E 2, FSH #### [address] [address] Judicial Registrar: Melvin Santoyo MD #### CBC #### [facility] [address] [place] [address] [address] [place], [place] [phone] Judicial Registrar: Phillip Camarena MD LDL Chol, Directon 3 LDL Chol, Direct 57 mg/dL Normal <100 [facility] Comment on above: Performed By: #### E 2, FSH #### [address] [id number] Judicial Registrar: Melvin Santoyo MD #### CBC #### [address] [place] [address] Judicial Registrar: Phillip Camarena MD Lipid Profileon 08-04-2023 Cholesterol,LDL Normal 0-[address] [facility] Comment on above: Result Comment: Calc ulation not valid for Triglyceride value greater than 400 mg/dL. Direct LDL reflexed LDL Guidelines: <100 Desirable 100-129 Near to/above Desirable 130-159 Borderline >159 Undesirable Direct (measured) LDL and calculated LDL are not interchangeable tests. Performed By: #### E 2, FSH #### [address] [address] Judicial Registrar: Melvin Santoyo MD #### CBC #### [facility] [address] [place] [address] [place] [address] Judicial Registrar: Phillip Camarena MD Triglyceride [Mass/Vol] 2181 mg/dL High <150 [facility] Comment on above: Result Comment: Triglyceride Guidelines: <150 Desirable 150-199 Borderline 200-499 High >499 Very high Based on AHA Guidelines for fasting triglyceride, June 2012. Performed By: #### E 2, FSH #### [facility] [address] [place] [address] Judicial Registrar: Melvin Santoyo MD #### CBC #### [facility] [address] [place] [address] [address] [place], [place] [phone] Judicial Registrar: Phillip Camarena MD Cholesterol [Mass/Vol] 334 mg/dL High <200 [facility] Comment on above: Result Comment: Cholesterol Guidelines: <200 Desirable 200-240 Borderline >240 Undesirable Performed By: #### E 2, FSH #### [place] [place] [address] [place] [address] Judicial Registrar: Melvin Santoyo MD #### CBC #### [facility] [address] [place] [address] [address] [place], [place] [phone] Judicial Registrar: Phillip Camarena MD Cholesterol in HDL [Mass/Vol] 17 mg/dL Low >40 [facility] Comment on above: Result Comment: HDL Guidelines: <40 Undesirable 40-59 Borderline >59 Desirable Performed By: #### E 2, FSH #### [facility] [address] [place] [address] Judicial Registrar: Melvin Santoyo MD #### CBC #### [facility] [address] [place] [address] [place]. [place], [place] [phone] Judicial Registrar: Phillip Camarena MD Cholesterol.total/Chol esterol in HDL [Mass ratio] 19.6 {ratio} High <5 [facility] Comment on above: Performed By: #### E 2, FSH #### [facility] [address] [place] [address] Judicial Registrar: Melvin Santoyo MD #### CBC #### [facility] [address] [place] [address] Dr[address] [place], [place] [phone] Judicial Registrar: Phillip Camarena MD Microalb.,Random Uron 2022 Creatinine [Mass/Vol] 63.2 mg/dL Normal 28.0-217.0 [facility] Comment on above: Performed By: #### C OVRB #### [facility] [address] [place], [place] [phone] Judicial Registrar: Phillip Camarena MD Microalb/Creat Ratio Can not be calculated Normal <25 [facility] Comment on above: Performed By: #### C OVRB #### [facility] [address] [place] [address] Judicial Registrar: Phillip Camarena MD Microalbumin conc. <12 Normal <21 [facility] Comment on above: Performed By: #### C OVRB #### [facility] [address] [place], [place] [phone] Judicial Registrar: Phillip Camarena MD Comp Metabolic Profon 2022 AST [Catalytic activity/Vol] 27 U/L Normal <32 [facility] Comment on above: Performed By: #### C OVRB #### [facility] [address] [place], [place] [phone] Judicial Registrar: Phillip Camarena MD Bilirubin [Mass/Vol] mg/dL Low 0.3-1.2 [facility] Comment on above: Performed By: #### C OVRB #### [facility] [address] [place], [place] 5070183 Judicial Registrar: Phillip Camarena MD Albumin [Mass/Vol] 4.6 g/dL Normal 3.5-5.2 [facility] Comment on above: Performed By: #### C OVRB #### [facility] [address] [place] [address] Judicial Registrar: Phillip Camarena MD Albumin/Glob Ratio 1.6 Normal 1.0-2.5 [facility] Comment on above: Performed By: #### C OVRB #### [facility] [address] [place] [address] Judicial Registrar: Phillip Camarena MD Alkaline Phos 71 U/L Normal 35-104 [facility] Comment on above: Performed By: #### C OVRB #### [facility] [address] [place] [phone] Judicial Registrar: Phillip Camarena MD ALT [Catalytic activity/Vol] 33 U/L Normal 5-33 [facility] Comment on above: Performed By: #### C OVRB #### [facility] [address] [place] [phone] Judicial Registrar: Phillip Camarena MD Anion gap [Moles/Vol] 13 mmol/L Normal 9-17 [facility] Comment on above: Performed By: #### C OVRB #### [facility] [address] [place] [phone] Judicial Registrar: Phillip Camarena MD BUN/CRE Ratio 24 High 9-20 [facility] Comment on above: Performed By: #### C OVRB #### [facility] [address] [place], [place] 2237583 Judicial Registrar: Phillip Camarena MD Calcium [Mass/Vol] 9.7 mg/dL Normal 8.6-10.4 [facility] Comment on above: Performed By: #### C OVRB #### [facility] [address] [place] [phone] Judicial Registrar: Phillip Camarena MD Chloride [Moles/Vol] 100 mmol/L Normal 98-107 [facility] Comment on above: Performed By: #### C OVRB #### [facility] [address] [place] [phone] Judicial Registrar: Phillip Camarena MD CO2 [Moles/Vol] 22 mmol/L Normal 20-[address] [facility] Comment on above: Performed By: #### C OVRB #### [facility] [address] [place] [phone] Judicial Registrar: Phillip Camarena MD Creatinine [Mass/Vol] 0.7 mg/dL Normal 0.5-0.9 [facility] Comment on above: Performed By: #### C OVRB #### [facility] [address] [place], [place] 6121583 Judicial Registrar: Phillip Camarena MD GFR/1.73 sq M.predicted among non-blacks MDRD (S/P/Bld) [Vol rate/Area] mL/min/{1.73_m2} Normal >60 [facility] Comment on above: Result Comment: These results are not intended for use in patients <18 years of age. eGFR results are calculated without a race factor using the 2020 CKD-EPI equation. Careful clinical correlation is recommended, particularly when comparing to results calculated using previous equations. The CKD-EPI equation is less accurate in patients with extremes of muscle mass, extra-renal metabolism of creatine, excessive creatine ingestion, or following therapy that affects renal tubular secretion. Performed By: #### C OVRB #### [facility] [address] [place] [address] [place] [place], [place] [phone] Judicial Registrar: Phillip Camarena MD Glucose [Mass/Vol] 125 mg/dL High 70-99 [facility] Comment on above: Performed By: #### C OVRB #### [facility] [address] [place] 1035983 Judicial Registrar: Phillip Camarena MD Potassium [Moles/Vol] 4.5 mmol/L Normal 3.7-5.3 [facility] Comment on above: Performed By: #### C OVRB #### [facility] [address] [place] [phone] Judicial Registrar: Phillip Camarena MD Protein [Mass/Vol] 7.5 g/dL Normal 6.4-8.3 [facility] Comment on above: Performed By: #### C OVRB #### [facility] [address] [place] [phone] Judicial Registrar: Phillip Camarena MD Sodium [Moles/Vol] 135 mmol/L Normal 135-144 [facility] Comment on above: Performed By: #### C OVRB #### [facility] [address] [place] 7806083 Judicial Registrar: Phillip Camarena MD Urea nitrogen [Mass/Vol] 17 mg/dL Normal 6-20 [facility] Comment on above: Performed By: #### C OVRB #### [facility] [address] [place] 0111183 Judicial Registrar: Phillip Camarena MD TSH w/reflex to FT4on 2022 Thyroid Stim. Horm. 0.46 uIU/mL Normal 0.30-5.00 [facility] Comment on above: Performed By: #### C OVRB #### [facility] [address] [place] [phone] Judicial Registrar: Phillip Camarena MD XR SHOULDER LEFT (MIN 2 VIEW S)on 07-23-2023 XR SHOULDER LEFT (MIN 2 VIEWS) EXAMINATION: 3 XRAY VIEWS OF THE LEFT SHOULDER 07/21/2023 3:20 pm COMPARISON: None HISTORY: ORDERING SYSTEM PROVIDED HISTORY: Pain Left shoulder pain FINDINGS: No acute fracture or dislocation is present. Joint alignment is maintained. There are mild degenerative changes of the AC joint. No erosions are present. No evidence of rotator cuff calcification. IMPRESSION: 1. No acute osseous abnormality of the left shoulder. 2. Mild AC joint osteoarthritis. Interpreted by: Phillip Stapleton MD Signed by: Phillip Stapleton MD 07/23/23 Final result Normal [facility] XR CHEST (2 VW)on 06-23-2023 XR CHEST (2 VW) EXAMINATION: TWO XRAY VIEWS OF THE CHEST 06/22/2023 2:44 pm COMPARISON: 06/16/2023 HISTORY: ORDERING SYSTEM PROVIDED HISTORY: Pneumonia of both lower lobes due to infectious organism TECHNOLOGIST PROVIDED HISTORY: pneumonia FINDINGS: The lungs are without acute focal process. There is no effusion or pneumothorax. The cardiomediastinal silhouette is stable. The osseous structures are stable. IMPRESSION: No acute process. Interpreted by: Mario Alberto Phan MD Signed by: Mario Alberto Phan MD 06/23/23 Final result Normal [facility] Brain Natri. Peptideon 06-22 Natriuretic peptide B (Bld) [Mass/Vol] 101 pg/mL Normal <300 [facility] Comment on above: Result Comment: An age-independent cutoff point of 300 pg/ml has a 98% negative predictive value excluding acute heart failure. Performed By: #### E 2, FSH #### [address] [address] Judicial Registrar: Melvin Santoyo MD #### CBC #### [facility] [address] [place] [address] [place] [address] Judicial Registrar: Phillip Camarena MD CBC with Diffon 06-22-2023 Abs. Atypical Lymphs 0.13 k/uL Normal [facility] Comment on above: Performed By: #### E 2, FSH #### [address] [address] Judicial Registrar: Melvin Santoyo MD #### CBC #### [facility] [address] [place] [address] [place] [address] Judicial Registrar: Phillip Camarena MD Abs. Basophil 0.00 k/uL Normal 0.0-0.2 [facility] Comment on above: Performed By: #### E 2, FSH #### [address] [address] Judicial Registrar: Melvin Santoyo MD #### CBC #### [facility] [address] [place] [address] Judicial Registrar: Phillip Camarena MD Abs.Imm.Granulocyte 0.00 k/uL Normal 0.00-0.30 [facility] Comment on above: Performed By: #### E 2, FSH #### [address] [address] Judicial Registrar: Melvin Santoyo MD #### CBC #### [facility] [address] [place] [address] [place] [phone] Judicial Registrar: Phillip Camarena MD Abs.Neutrophil (Seg) 8.85 k/uL High 1.50-8.10 [facility] Comment on above: Performed By: #### E 2, FSH #### [address] [address] Judicial Registrar: Melvin Santoyo MD #### CBC #### [address] [place] 7303083 Judicial Registrar: Phillip Camarena MD Atypical Lymphs 1 % Normal [facility] Comment on above: Performed By: #### E 2, FSH #### [address] [address] Judicial Registrar: Melvin Santoyo MD #### CBC #### [address] [place] 7303083 Judicial Registrar: Phillip Camarena MD Basophils/100 WBC (Bld) 0 % Normal 0-2 [facility] Comment on above: Performed By: #### E 2, FSH #### [address] [address] Judicial Registrar: Melvin Santoyo MD #### CBC #### [facility] [address] [place] [address] [place] [address] Judicial Registrar: Phillip Camarena MD Eosinophils (Bld) [#/Vol] 0.13 10*3/uL Normal 0.00-0.44 [facility] Comment on above: Performed By: #### E 2, FSH #### [address] [address] Judicial Registrar: Melvin Santoyo MD #### CBC #### [facility] [address] [place] [address] [place] [place] [phone] Judicial Registrar: Phillip Camarena MD Eosinophils/100 WBC (Bld) 1 % Normal 1-4 [facility] Comment on above: Performed By: #### E 2, FSH #### [address] [address] Judicial Registrar: Melvin Santoyo MD #### CBC #### [facility] [address] [place], [place] [phone] Judicial Registrar: Phillip Camarena MD Immature granulocytes/100 WBC (Bld) 0 % Normal 0 [facility] Comment on above: Performed By: #### E 2, FSH #### [address] [address] Judicial Registrar: Melvin Santoyo MD #### CBC #### [facility] [address] [place] [address] [place] [address]3083 Judicial Registrar: Phillip Camarena MD Lymphocytes (Bld) [#/Vol] 3.56 10*3/uL Normal 1.10-3.70 [facility] Comment on above: Performed By: #### E 2, FSH #### [address] [address] Judicial Registrar: Melvin Santoyo MD #### CBC #### [facility] [address] [place] [address] [place] [phone] Judicial Registrar: Phillip Camarena MD Lymphocytes/100 WBC (Bld) 27 % Normal 24-43 [facility] Comment on above: Performed By: #### E 2, FSH #### [address] [address] Judicial Registrar: Melvin Santoyo MD #### CBC #### [facility] [address] [place], [place] [phone] Judicial Registrar: Phillip Camarena MD Monocytes (Bld) [#/Vol] 0.53 10*3/uL Normal 0.10-1.20 [facility] Comment on above: Performed By: #### E 2, FSH #### [facility] [address] [place] [address] Judicial Registrar: Melvin Santoyo MD #### CBC #### [facility] [address] [place], [place] 1043383 Judicial Registrar: Phillip Camarena MD Monocytes/100 WBC (Bld) 4 % Normal 3-12 [facility] Comment on above: Performed By: #### E 2, FSH #### [address] [address] Judicial Registrar: Melvin Santoyo MD #### CBC #### [facility] [address] [place] [address] [address]. [place], [place] [phone] Judicial Registrar: Phillip Camarena MD Morphology Alejo (Bld) [Interp] Normal Normal [facility] Comment on above: Performed By: #### E 2, FSH #### [address] [address] Judicial Registrar: Melvin Santoyo MD #### CBC #### [address] [place] [address] Judicial Registrar: Phillip Camarena MD Neutrophil (Seg) 67 % High 36-65 [facility] Comment on above: Performed By: #### E 2, FSH #### [facility] [address] [place] [address] Judicial Registrar: Melvin Santoyo MD #### CBC #### [facility] [address] [place], [place] [phone] Judicial Registrar: Phillip Camarena MD Nucleated RBC'S 1 per 100 WBC Normal 0-5 [facility] [facility] Comment on above: Performed By: #### E 2, FSH #### [address] [address] Judicial Registrar: Melvin Santoyo MD #### CBC #### [facility] [address] [place] [address] [place] [address] Judicial Registrar: Phillip Camarena MD Erythrocyte distribution width (RBC) [Ratio] 13.4 % Normal 11.8-14.4 [facility] Comment on above: Performed By: #### E 2, FSH #### [address] [address] Judicial Registrar: Melvin Santoyo MD #### CBC #### [facility] [address] [place] [address] Dr. [place] [id number] Judicial Registrar: Phillip Camarena MD Hematocrit (Bld) [Volume fraction] 43.7 % Normal 36.3-47.1 [facility] Comment on above: Performed By: #### E 2, FSH #### [address] [address] Judicial Registrar: Melvin Santoyo MD #### CBC #### [facility] [address] [place] [address] Dr. [place] [id number] Judicial Registrar: Phillip Camarena MD Hemoglobin (Bld) [Mass/Vol] 13.8 g/dL Normal 11.9-15.1 [facility] Comment on above: Performed By: #### E 2, FSH #### [address] [address] Judicial Registrar: Melvin Santoyo MD #### CBC #### [facility] [address] [place] [address] [place] [address] Judicial Registrar: Phillip Camarena MD MCH (RBC) [Entitic mass] 31.4 pg Normal 25.2-33.5 [facility] Comment on above: Performed By: #### E 2, FSH #### [address] [address] Judicial Registrar: Melvin Santoyo MD #### CBC #### [address] [place] [address] Judicial Registrar: Phillip Camarena MD MCHC (RBC) [Mass/Vol] 31.6 g/dL Normal 28.4-34.8 [facility] Comment on above: Performed By: #### E 2, FSH #### [address] [address] Judicial Registrar: Melvin Santoyo MD #### CBC #### [address] [place] [address] Judicial Registrar: Phillip Camarena MD MCV (RBC) [Entitic vol] 99.5 fL Normal 82.6-102.9 [facility] Comment on above: Performed By: #### E 2, FSH #### [address] [address] Judicial Registrar: Melvin Santoyo MD #### CBC #### [address] [place] [address] Judicial Registrar: Phillip Camarena MD NRBC Automated 0.0 per 100 WBC Normal 0.0 [facility] Comment on above: Performed By: #### E 2, FSH #### [address] [address] Judicial Registrar: Melvin Santoyo MD #### CBC #### [address] [place], [place] [id number] Judicial Registrar: Phillip Camarena MD Platelet mean volume (Bld) [Entitic vol] 8.7 fL Normal 8.1-13.5 [facility] Comment on above: Performed By: #### E 2, FSH #### [address] [address] Judicial Registrar: Melvin Santoyo MD #### CBC #### [facility] [address] [place], [place] [id number] Judicial Registrar: Phillip Camarena MD Platelets (Bld) [#/Vol] 424 10*3/uL Normal 138-453 [facility] Comment on above: Performed By: #### E 2, FSH #### [place] [id number] [place], [place] [id number] Judicial Registrar: Melvin Santoyo MD #### CBC #### [facility] [address] [place], [place] [id number] Judicial Registrar: Phillip Camarena MD RBC (Bld) [#/Vol] 4.39 10*6/uL Normal 3.95-5.11 [facility] Comment on above: Performed By: #### E 2, FSH #### [address] [id number] Judicial Registrar: Melvin Santoyo MD #### CBC #### [facility] [address] [place] [address] Dr. [place], [place] [id number] Judicial Registrar: Phillip Camarena MD WBC (Bld) [#/Vol] 13.2 10*3/uL High 3.5-11.3 [facility] Comment on above: Performed By: #### E 2, FSH #### [address] [id number] Judicial Registrar: Melvin Santoyo MD #### CBC #### [facility] [address] [place] [address] Dr. [place], [place] [id number] Judicial Registrar: Phillip Camarena MD CBC with Auto Differentialon 06-16-2023 Basophils (Bld) [#/Vol] 0.00 10*3/uL [facility] Basophils/100 WBC (Bld) 0 % 0 - 2 % [facility] Eosinophils (Bld) [#/Vol] 0.00 10*3/uL [facility] Eosinophils/100 WBC (Bld) 0 % Low 1 - 4 % [facility] Erythrocyte distribution width (RBC) [Ratio] 13.1 % 11.8 - 14.4 % [facility] Hematocrit (Bld) [Volume fraction] 44.3 % 36.3 - 47.1 % [facility] Hemoglobin (Bld) [Mass/Vol] 14.6 g/dL 11.9 - 15.1 g/dL [facility] Immature granulocytes (Bld) [#/Vol] 0.25 10*3/uL [facility] Immature granulocytes/100 WBC (Bld) 2 % High 0 [facility] Interpretation and review of laboratory results Abnormal [facility] Lymphocytes/100 WBC (Bld) 20 % Low 24 - 43 % [facility] Lymphocytes/100 WBC (Bld) 2.46 % [facility] MCH (RBC) [Entitic mass] 31.3 pg 25.2 - 33.5 pg [facility] MCHC (RBC) [Mass/Vol] 33.0 g/dL 28.4 - 34.8 g/dL [facility] MCV (RBC) [Entitic vol] 95.1 fL 82.6 - 102.9 fL [facility] Monocytes/100 WBC (Bld) 6 % 3 - 12 % [facility] Monocytes/100 WBC (Bld) 0.74 % [facility] Morphology Alejo (Bld) [Interp] ANISOCYTOSIS PRESENT [facility] Neutrophils/100 WBC (Bld) 72 % High 36 - 65 % [facility] Nucleated RBC/100 WBC (Bld) [Ratio] 0.0 % 0.0 per 100 WBC [facility] Platelet mean volume (Bld) [Entitic vol] 8.8 fL 8.1 - 13.5 fL [facility] Platelets (Bld) [#/Vol] 438 10*3/uL [facility] RBC (Bld) [#/Vol] 4.66 10*6/uL 3.95 - 5.1 1 m/uL [facility] Segmented neutrophils/100 WBC (Bld) 8.85 % High [facility] WBC other (Bld) [#/Vol] 12.3 High [facility] CBC with Diffon 06-16-2023 Abs. Basophil 0.00 k/uL Normal 0.0-0.2 [facility] Comment on above: Performed By: #### E 2, FSH #### [id number] [place] [address] Judicial Registrar: Melvin Santoyo MD #### CBC #### [address] [place] [phone] Judicial Registrar: Phillip Camarena MD Abs.Imm.Granulocyte 0.25 k/uL Normal 0.00-0.30 [facility] Comment on above: Performed By: #### E 2, FSH #### [address] [address] Judicial Registrar: Melvin Santoyo MD #### CBC #### [address] [place] [phone] Judicial Registrar: Phillip Camarena MD Abs.Neutrophil (Seg) 8.85 k/uL High 1.50-8.10 [facility] Comment on above: Performed By: #### Bonnie 2, FSH #### [address] [address] Judicial Registrar: Melvin Santoyo MD #### CBC #### [address] [place] [phone] Judicial Registrar: Phillip Camarena MD Basophils/100 WBC (Bld) 0 % Normal 0-2 [facility] Comment on above: Performed By: #### E 2, FSH #### [address] [address] Judicial Registrar: Melvin Santoyo MD #### CBC #### [address] [place], [place] [phone] Judicial Registrar: Phillip Camarena MD Eosinophils (Bld) [#/Vol] 0.00 10*3/uL Normal 0.00-0.44 [facility] Comment on above: Performed By: #### E 2, FSH #### [facility] [address] [place] [address] Judicial Registrar: Melvin Santoyo MD #### CBC #### [facility] [address] [place] [phone] Judicial Registrar: Phillip Camarena MD Eosinophils/100 WBC (Bld) 0 % Low 1-4 [facility] Comment on above: Performed By: #### E 2, FSH #### [address] [address] Judicial Registrar: Melvin Santoyo MD #### CBC #### [facility] [address] [place] [address] Dr. [place] [phone] Judicial Registrar: Phillip Camarena MD Immature granulocytes/100 WBC (Bld) 2 % High 0 [facility] Comment on above: Performed By: #### E 2, FSH #### [address] [address] Judicial Registrar: Melvin Santoyo MD #### CBC #### [facility] [address] [place] [address] [place] [address] Judicial Registrar: Phillip Camarena MD Lymphocytes (Bld) [#/Vol] 2.46 10*3/uL Normal 1.10-3.70 [facility] Comment on above: Performed By: #### E 2, FSH #### [address] [address] Judicial Registrar: Melvin Santoyo MD #### CBC #### [facility] [address] [place] [phone] Judicial Registrar: Phillip Camarena MD Lymphocytes/100 WBC (Bld) 20 % Low 24-43 [facility] Comment on above: Performed By: #### E 2, FSH #### [address] [address] Judicial Registrar: Melvin Santoyo MD #### CBC #### [facility] [address] [place] [address] [place] [address] Judicial Registrar: Phillip Camarena MD Monocytes (Bld) [#/Vol] 0.74 10*3/uL Normal 0.10-1.20 [facility] Comment on above: Performed By: #### E 2, FSH #### [address] [address] Judicial Registrar: Melvin Santoyo MD #### CBC #### [address] [place], [place] 1407483 Judicial Registrar: Phillip Camarena MD Monocytes/100 WBC (Bld) 6 % Normal 3-12 [facility] Comment on above: Performed By: #### E 2, FSH #### [address] [address] Judicial Registrar: Melvin Santoyo MD #### CBC #### [address] [place], [place] [phone] Judicial Registrar: Phillip Camarena MD Morphology Alejo (Bld) [Interp] ANISOCYTOSIS Normal [facility] Comment on above: Result Comment: PRES ENT Performed By: #### E 2, FSH #### [address] [address] Judicial Registrar: Melvin Santoyo MD #### CBC #### [facility] [address] [place] [address] Dr. [place], [place] [phone] Judicial Registrar: Phillip Camarena MD Neutrophil (Seg) 72 % High 36-65 [facility] Comment on above: Performed By: #### E 2, FSH #### [address] [address] Judicial Registrar: Melvin Santoyo MD #### CBC #### [facility] [address] [place], [place] [phone] Judicial Registrar: Phillip Camarena MD Erythrocyte distribution width (RBC) [Ratio] 13.1 % Normal 11.8-14.4 [facility] Comment on above: Performed By: #### E 2, FSH #### [address] [address] Judicial Registrar: Melvin Santoyo MD #### CBC #### [facility] [address] [place] 7303083 Judicial Registrar: Phillip Camarena MD Hematocrit (Bld) [Volume fraction] 44.3 % Normal 36.3-47.1 [facility] Comment on above: Performed By: #### E 2, FSH #### [address] [address] Judicial Registrar: Melvin Santoyo MD #### CBC #### [facility] [address] [place] [phone] Judicial Registrar: Phillip Camarena MD Hemoglobin (Bld) [Mass/Vol] 14.6 g/dL Normal 11.9-15.1 [facility] Comment on above: Performed By: #### E 2, FSH #### [address] [address] Judicial Registrar: Melvin Santoyo MD #### CBC #### [facility] [address] [place], [place] 6012383 Judicial Registrar: Phillip Camarena MD MCH (RBC) [Entitic mass] 31.3 pg Normal 25.2-33.5 [facility] Comment on above: Performed By: #### E 2, FSH #### [address] [address] Judicial Registrar: Melvin Santoyo MD #### CBC #### [address] [place] [address] Judicial Registrar: Phillip Camarena MD MCHC (RBC) [Mass/Vol] 33.0 g/dL Normal 28.4-34.8 [facility] Comment on above: Performed By: #### E 2, FSH #### [address] [address] Judicial Registrar: Melvin Santoyo MD #### CBC #### [address] [place] [address] Judicial Registrar: Phillip Camarena MD MCV (RBC) [Entitic vol] 95.1 fL Normal 82.6-102.9 [facility] Comment on above: Performed By: #### E 2, FSH #### [address] [address] Judicial Registrar: Melvin Santoyo MD #### CBC #### [address] [place] [address] Judicial Registrar: Phillip Camarena MD NRBC Automated 0.0 per 100 WBC Normal 0.0 [facility] Comment on above: Performed By: #### E 2, FSH #### [address] [address] Judicial Registrar: Melvin Santoyo MD #### CBC #### [address] [place], [place] [phone] Judicial Registrar: Phillip Camarena MD Platelet mean volume (Bld) [Entitic vol] 8.8 fL Normal 8.1-13.5 [facility] Comment on above: Performed By: #### E 2, FSH #### [address] [address] Judicial Registrar: Melvin Santoyo MD #### CBC #### [address] [place], [place] [phone] Judicial Registrar: Phillip Camarena MD Platelets (Bld) [#/Vol] 438 10*3/uL Normal 138-453 [facility] Comment on above: Performed By: #### E 2, FSH #### [address] [address] Judicial Registrar: Melvin Santoyo MD #### CBC #### [address] [place], [place] 1162483 Judicial Registrar: Phillip Camarena MD RBC (Bld) [#/Vol] 4.66 10*6/uL Normal 3.95-5.11 [facility] Comment on above: Performed By: #### E 2, FSH #### [address] [address] Judicial Registrar: Melvin Santoyo MD #### CBC #### [address] [place], [place] 9285983 Judicial Registrar: Phillip Camarena MD WBC (Bld) [#/Vol] 12.3 10*3/uL High 3.5-11.3 [facility] Comment on above: Performed By: #### E 2, FSH #### [address] [address] Judicial Registrar: Melvin Santoyo MD #### CBC #### [address] [place], [place] [phone] Judicial Registrar: Phillip Camarena MD CT HEAD WO CONTRASTon 2022 CT HEAD WO CONTRAST EXAMINATION: CT OF THE HEAD WITHOUT CONTRAST 06/16/2023 7:27 pm TECHNIQUE: CT of the head was performed without the administration of intravenous contrast. Automated exposure control, iterative reconstruction, and/or weight based adjustment of the mA/kV was utilized to reduce the radiation dose to as low as reasonably achievable. COMPARISON: 06/10/2023 HISTORY: ORDERING SYSTEM PROVIDED HISTORY: syncope, hit head TECHNOLOGIST PROVIDED HISTORY: syncope, hit head Decision Support Exception - unselect if not a suspected or confirmed emergency medical condition->Emergency Medical Condition (MA) Is the patient ?->No FINDINGS: BRAIN/VENTRICLES: No acute loss of the conner-white matter differentiation is identified to suggest acute or subacute infarct. No masses or hemorrhages within the brain parenchyma are found. No evidence of midline shift. The intracranial vasculature, including the dural venous sinuses, is within normal limits. ORBITS: No acute orbital abnormalities are identified. SINUSES: The visualized paranasal sinuses and mastoid air cells are clear. SOFT TISSUES/SKULL: The calvarium is intact. Extracranial soft tissues are unremarkable. IMPRESSION: No acute intracranial abnormality. Interpreted by: Brandon Morfin MD Signed by: Brandon Morfin MD 06/16/23 Final result Normal [facility] CT Head WO Contraston 2022 No acute intracrania l abnormality. [facility] EXAMINATION: CT OF THE HEAD WITHOUT CONTRAST 06/16/2023 7:27 pm TECHNIQUE: CT of the head was performed without the administration of intravenous contrast. Automated exposure control, iterative reconstruction, and/or weight based adjustment of the mA/kV was utilized to reduce the radiation dose to as low as reasonably achievable. COMPARISON: 06/10/2023 HISTORY: ORDERING SYSTEM PROVIDED HISTORY: syncope, hit head TECHNOLOGIST PROVIDED HISTORY: syncope, hit head Decision Support Exception - unselect if not a suspected or confirmed emergency medical condition->Emergency Medical Condition (MA) Is the patient ?->No FINDINGS: BRAIN/VENTRICLES: No acute loss of the conner-white matter differentiation is identified to suggest acute or subacute infarct. No masses or hemorrhages within the brain parenchyma are found. No evidence of midline shift. The intracranial vasculature, including the dural venous sinuses, is within normal limits. ORBITS: No acute orbital abnormalities are identified. SINUSES: The visualized paranasal sinuses and mastoid air cells are clear. SOFT TISSUES/SKULL: The calvarium is intact. Extracranial soft tissues are unremarkable. [facility] Brandon Morfin M D - 06/16/2023 EXAMINATION: CT OF THE HEAD WITHOUT CONTRAST 06/16/2023 7:27 pm TECHNIQUE: CT of the head was performed without the administration of intravenous contrast. Automated exposure control, iterative reconstruction, and/or weight based adjustment of the mA/kV was utilized to reduce the radiation dose to as low as reasonably achievable. COMPARISON: 06/10/2023 HISTORY: ORDERING SYSTEM PROVIDED HISTORY: syncope, hit head TECHNOLOGIST PROVIDED HISTORY: syncope, hit head Decision Support Exception - unselect if not a suspected or confirmed emergency medical condition->Emergency Medical Condition (MA) Is the patient ?->No FINDINGS: BRAIN/VENTRICLES: No acute loss of the conner-white matter differentiation is identified to suggest acute or subacute infarct. No masses or hemorrhages within the brain parenchyma are found. No evidence of midline shift. The intracranial vasculature, including the dural venous sinuses, is within normal limits. ORBITS: No acute orbital abnormalities are identified. SINUSES: The visualized paranasal sinuses and mastoid air cells are clear. SOFT TISSUES/SKULL: The calvarium is intact. Extracranial soft tissues are unremarkable. IMPRESSION: No acute intracranial abnormality. [facility] Radiology Study observation (narrative) [facility] CT Head WO ContrastOrdered B y: Brandon Morfin on 06-16-2023 [facility] Work Phone: Comp Metabolic Profon 2022 Albumin [Mass/Vol] 4.5 g/dL Normal 3.5-5.2 [facility] Comment on above: Performed By: #### E 2, FSH #### [facility] [address] [place], [place] [id number] Judicial Registrar: Melvin Santoyo MD #### CBC #### [facility] [address] [place] [address] [place] [address] Judicial Registrar: Phillip Camarena MD Albumin/Glob Ratio 1.4 Normal 1.0-2.5 [facility] Comment on above: Performed By: #### E 2, FSH #### [facility] [address] [place], [place] [id number] Judicial Registrar: Melvin Santoyo MD #### CBC #### [facility] [address] [place] [address] [place] [address] Judicial Registrar: Phillip Camarena MD Alkaline Phos 59 U/L Normal 35-104 [facility] Comment on above: Performed By: #### E 2, FSH #### [facility] [address] [place] [address] Judicial Registrar: Melvin Santoyo MD #### CBC #### [facility] [address] [place], [place] [id number] Judicial Registrar: Phillip Camarena MD ALT [Catalytic activity/Vol] 30 U/L Normal 5-33 [facility] Comment on above: Performed By: #### E 2, FSH #### [address] [address] Judicial Registrar: Melvin Santoyo MD #### CBC #### [facility] [address] [place] [address] Dr. [place], [place] [id number] Judicial Registrar: Phillip Camarena MD Anion gap [Moles/Vol] 10 mmol/L Normal 9-17 [facility] Comment on above: Performed By: #### E 2, FSH #### [address] [address] Judicial Registrar: Melvin Santoyo MD #### CBC #### [address] [place], [place] [id number] Judicial Registrar: Phillip Camarena MD AST [Catalytic activity/Vol] 33 U/L High <32 [facility] Comment on above: Performed By: #### E 2, FSH #### [address] [address] Judicial Registrar: Melvin Santoyo MD #### CBC #### [address] [place], [place] [id number] Judicial Registrar: Phillip Camarena MD Bilirubin [Mass/Vol] 0.3 mg/dL Normal 0.3-1.2 [facility] Comment on above: Performed By: #### E 2, FSH #### [address] [address] Judicial Registrar: Melvin Santoyo MD #### CBC #### [facility] [address] [place], [place] 6005483 Judicial Registrar: Phillip Camarena MD BUN/CRE Ratio 29 High 9-20 [facility] Comment on above: Performed By: #### E 2, FSH #### [address] [address] Judicial Registrar: Melvin Santoyo MD #### CBC #### [facility] [address] [place] [address] Judicial Registrar: Phillip Camarena MD Calcium [Mass/Vol] 9.9 mg/dL Normal 8.6-10.4 [facility] Comment on above: Performed By: #### E 2, FSH #### [address] [address] Judicial Registrar: Melvin Santoyo MD #### CBC #### [facility] [address] [place] [address] [place] [address] Judicial Registrar: Phillip Camarena MD Chloride [Moles/Vol] 99 mmol/L Normal 98-107 [facility] Comment on above: Performed By: #### E 2, FSH #### [address] [address] Judicial Registrar: Melvin Santoyo MD #### CBC #### [facility] [address] [place], [place] [phone] Judicial Registrar: Phillip Camarena MD CO2 [Moles/Vol] 26 mmol/L Normal 20-[address] [facility] Comment on above: Performed By: #### E 2, FSH #### [address] [address] Judicial Registrar: Melvin Santoyo MD #### CBC #### [facility] [address] [place] [address] Dr. [place], [place] 6405783 Judicial Registrar: Phillip Camarena MD Creatinine [Mass/Vol] 1.0 mg/dL High 0.5-0.9 [facility] Comment on above: Performed By: #### E 2, FSH #### [address] [address] Judicial Registrar: Melvin Santoyo MD #### CBC #### [facility] [address] [place] [address] Dr. [place], [place] [id number] Judicial Registrar: Phillip Camarena MD GFR/1.73 sq M.predicted among non-blacks MDRD (S/P/Bld) [Vol rate/Area] mL/min/{1.73_m2} Normal >60 [facility] Comment on above: Result Comment: These results are not intended for use in patients <18 years of age. eGFR results are calculated without a race factor using the 2020 CKD-EPI equation. Careful clinical correlation is recommended, particularly when comparing to results calculated using previous equations. The CKD-EPI equation is less accurate in patients with extremes of muscle mass, extra-renal metabolism of creatine, excessive creatine ingestion, or following therapy that affects renal tubular secretion. Performed By: #### E 2, FSH #### [address] [address] Judicial Registrar: Melvin Santoyo MD #### CBC #### [address] [place], [place] [id number] Judicial Registrar: Phillip Camarena MD Glucose [Mass/Vol] 109 mg/dL High 70-99 [facility] Comment on above: Performed By: #### E 2, FSH #### [address] [address] Judicial Registrar: Melvin Santoyo MD #### CBC #### [address] [place], [place] [id number] Judicial Registrar: Phillip Camarena MD Potassium [Moles/Vol] 5.0 mmol/L Normal 3.7-5.3 [facility] Comment on above: Performed By: #### E 2, FSH #### [facility] [address] [place] [address] Judicial Registrar: Melvin Santooy MD #### CBC #### [facility] [address] [place], [place] [phone] Judicial Registrar: Phillip Camarena MD Protein [Mass/Vol] 7.8 g/dL Normal 6.4-8.3 [facility] Comment on above: Performed By: #### E 2, FSH #### [id number] [place] [address] Judicial Registrar: Melvin Santoyo MD #### CBC #### [facility] [address] [place] [address] Dr. [place], [place] [id number] Judicial Registrar: Phillip Camarena MD Sodium [Moles/Vol] 135 mmol/L Normal 135-144 [facility] Comment on above: Performed By: #### E 2, FSH #### [facility] [address] [place] [address] Judicial Registrar: Melvin Santoyo MD #### CBC #### [facility] [address] [place] [address] Dr. [place], [place] [id number] Judicial Registrar: Phillip Camarena MD Urea nitrogen [Mass/Vol] 29 mg/dL High 6-20 [facility] Comment on above: Performed By: #### E 2, FSH #### [facility] [address] [place] [address] Judicial Registrar: Melvin Santoyo MD #### CBC #### [facility] [address] [place], [place] [id number] Judicial Registrar: Phillip Camarena MD Comprehensive Met[facility] 06-16-2023 Albumin [Mass/Vol] 4.5 g/dL 3.5 - 5.2 g/dL [facility] Albumin/Globulin [Mass ratio] 1.4 {ratio} 1.0 - 2.5 [facility] ALP [Catalytic activity/Vol] 59 U/L 35 - 104 U/L [facility] ALT [Catalytic activity/Vol] 30 U/L 5 - 33 U/L [facility] Anion gap [Moles/Vol] 10 mmol/L 9 - 17 mmol/L [facility] AST [Catalytic activity/Vol] 33 U/L High NINF - 32 U/L [facility] Bilirubin [Mass/Vol] 0.3 mg/dL 0.3 - 1 .2 mg/dL [facility] Calcium [Mass/Vol] 9.9 mg/dL 8.6 - 10. 4 mg/dL [facility] Chloride [Moles/Vol] 99 mmol/L 98 - 10 7 mmol/L [facility] CO2 [Moles/Vol] 26 mmol/L 20 - 31 mmol/L [facility] Creatinine [Mass/Vol] 1.0 mg/dL High 0.5 - 0.9 mg/dL [facility] GFR/1.73 sq M.predicted MDRD (S/P/Bld) [Vol rate/Area] - PINF [facility] Comment on above: These results are not intended for use in patients <18 years of age. eGFR results are calculated without a race factor using the 2020 CKD-EPI equation. Careful clinical correlation is recommended, particularly when comparing to results calculated using previous equations. The CKD-EPI equation is less accurate in patients with extremes of muscle mass, extra-renal metabolism of creatine, excessive creatine ingestion, or following therapy that affects renal tubular secretion. Glucose [Mass/Vol] 109 mg/dL High 70 - 99 mg/dL [facility] Interpretation and review of laboratory results Abnormal [facility] Potassium [Moles/Vol] 5.0 mmol/L 3.7 - 5.3 mmol/L [facility] Protein [Mass/Vol] 7.8 g/dL 6.4 - 8.3 g/dL [facility] Sodium [Moles/Vol] 135 mmol/L 135 - 144 mmol/L [facility] Urea nitrogen [Mass/Vol] 29 mg/dL High 6 - 20 mg/dL [facility] Urea nitrogen/Creatinine [Mass ratio] 29 mg/mg High 9 - 20 [facility] Troponinon 06-16-2023 Troponin, High Sens 15 ng/L High 0-14 [facility] Comment on above: Result Comment: High Sensitivity Troponin values cannot be compared with other Troponin methodologies. Performed By: #### E 2, FSH #### [facility] [address] [place] [address] Judicial Registrar: Melvin Santoyo MD #### CBC #### [facility] [address] [place] [address] Judicial Registrar: Phillip Camarena MD Interpretation and review of laboratory results Abnormal [facility] Troponin I.cardiac High sensitivity method [Mass/Vol] 15 ng/L High 0 - 14 ng/L [facility] Comment on above: High Sensitivity Tro ponin values cannot be compared with other Troponin methodologies. [facility] XR CHEST PORTABLEon 06-16-20 XR CHEST PORTABLE EXAMINATION: ONE XRAY VIEW OF THE CHEST 06/16/2023 6:31 pm COMPARISON: June 10, 2023 and additional prior exams. HISTORY: ORDERING SYSTEM PROVIDED HISTORY: Syncope TECHNOLOGIST PROVIDED HISTORY: Syncope FINDINGS: Mild increased prominence of the pulmonary vasculature and interstitium. No pleural effusion or pneumothorax identified. Cardiac and mediastinal silhouettes are within normal limits. No acute osseous abnormality identified. IMPRESSION: Mild prominence of pulmonary vasculature and interstitium related to technique versus developing pulmonary edema. Interpreted by: Jason Long MD Signed by: Jason Long MD 06/16/23 Final result Normal [facility] Mild prominence of pulmonary vasculature and interstitium related to technique versus developing pulmonary edema. [facility] RIS CONSOLIDATED EXAMINATION: ONE XRAY VIEW OF THE CHEST 06/16/2023 6:31 pm COMPARISON: June 10, 2023 and additional prior exams. HISTORY: ORDERING SYSTEM PROVIDED HISTORY: Syncope TECHNOLOGIST PROVIDED HISTORY: Syncope FINDINGS: Mild increased prominence of the pulmonary vasculature and interstitium. No pleural effusion or pneumothorax identified. Cardiac and mediastinal silhouettes are within normal limits. No acute osseous abnormality identified. [facility] Jason Long MD - 06/16/2023 EXAMINATION: ONE XRAY VIEW OF THE CHEST 06/16/2023 6:31 pm COMPARISON: June 10, 2023 and additional prior exams. HISTORY: ORDERING SYSTEM PROVIDED HISTORY: Syncope TECHNOLOGIST PROVIDED HISTORY: Syncope FINDINGS: Mild increased prominence of the pulmonary vasculature and interstitium. No pleural effusion or pneumothorax identified. Cardiac and mediastinal silhouettes are within normal limits. No acute osseous abnormality identified. IMPRESSION: Mild prominence of pulmonary vasculature and interstitium related to technique versus developing pulmonary edema. [facility] Radiology Study observation (narrative) [facility] XR CHEST PORTABLEOrdered By: Jason Long on 06-16-2023 [facility] Work Phone: Cult, Bloodon 06-15-2023 Cult, Blood Specimen Description .BLOOD Special Requests L HAND 20 ML Culture NO GROWTH 5 DAYS Report Status FINAL 06/15/2023 [facility] Comment on above: Performed By: #### E 2, FSH #### [facility] [address] [place] [address] Judicial Registrar: Melvin Santoyo MD #### CBC #### [facility] [address] [place] [address] Judicial Registrar: Phillip Camarena MD Cult,Bloodon 06-15-2023 Cult,Blood Specimen Description .BLOOD Special Requests R WRIST 20 ML Culture POSITIVE BLOOD CULTURE, RN NOTIFIED: DIRECT GRAM STAIN FROM BOTTLE: GRAM POSITIVE COCCI IN PAIRS Targeted Organisms Not Detected: Staphylococcus , Streptococcus , or Enterococcus species Culture Results to Follow Methodology- Polymerase Chain Reaction (PCR) MICROCOCCUS SPECIES A single positive blood culture of coagulase negative Staphylocci, diphtheroids,micrococci , Cutibacterium, viridans Streptocci, Bacillus, or Lactobacillus species should be interpreted with caution and viewed as a likely skin contaminant. (NOTE) Direct Gram Stain from bottle result called to and read back by:COOKIE MCRAE RN [facility] T 0715 06/13/23 KB RB Report Status FINAL 06/15/2023 Normal [facility] Comment on above: Performed By: #### E 2, FSH #### [facility] [address] [place] [address] Judicial Registrar: Melvin Santoyo MD #### CBC #### [facility] [address] [place], [place] [id number] Judicial Registrar: Phillip Camarena MD Basic Metab w/rfx MGon 06-14 Anion gap [Moles/Vol] 11 mmol/L Normal 9-17 [facility] Comment on above: Performed By: #### E 2, FSH #### [facility] [address] [place] [address] Judicial Registrar: Melvin Santoyo MD #### CBC #### [facility] [address] [place] [address] Dr. [place], [place] [phone] Judicial Registrar: Phillip Camarena MD BUN/CRE Ratio 33 High 9-20 [facility] Comment on above: Performed By: #### E 2, FSH #### [facility] [address] [place] [address] Judicial Registrar: Melvin Santoyo MD #### CBC #### [facility] [address] [place], [place] [id number] Judicial Registrar: Phillip Camarena MD Calcium [Mass/Vol] 9.9 mg/dL Normal 8.6-10.4 [facility] Comment on above: Performed By: #### E 2, FSH #### [facility] [address] [place] [address] Judicial Registrar: Melvin Santoyo MD #### CBC #### [facility] [address] [place], [place] [id number] Judicial Registrar: Phillip Camarena MD Chloride [Moles/Vol] 98 mmol/L Normal 98-107 [facility] Comment on above: Performed By: #### E 2, FSH #### [address] [place] [address] Judicial Registrar: Melvin Santoyo MD #### CBC #### [facility] [address] [place] [address] Judicial Registrar: Phillip Camarena MD CO2 [Moles/Vol] 26 mmol/L Normal 20-[address] [facility] Comment on above: Performed By: #### E 2, FSH #### [address] [address] Judicial Registrar: Melvin Santoyo MD #### CBC #### [facility] [address] [place] [address] [place] [address] Judicial Registrar: Phillip Camarena MD Creatinine [Mass/Vol] 0.9 mg/dL Normal 0.5-0.9 [facility] Comment on above: Performed By: #### E 2, FSH #### [address] [address] Judicial Registrar: Melvin Santoyo MD #### CBC #### [facility] [address] [place] [address] [place] [address] Judicial Registrar: Phillip Camarena MD GFR/1.73 sq M.predicted among non-blacks MDRD (S/P/Bld) [Vol rate/Area] mL/min/{1.73_m2} Normal >60 [facility] Comment on above: Result Comment: These results are not intended for use in patients <18 years of age. eGFR results are calculated without a race factor using the 2020 CKD-EPI equation. Careful clinical correlation is recommended, particularly when comparing to results calculated using previous equations. The CKD-EPI equation is less accurate in patients with extremes of muscle mass, extra-renal metabolism of creatine, excessive creatine ingestion, or following therapy that affects renal tubular secretion. Performed By: #### E 2, FSH #### [address] [address] Judicial Registrar: Melvin Santoyo MD #### CBC #### [facility] [address] [place] [address] [place] [address] Judicial Registrar: Phillip Camarena MD Glucose [Mass/Vol] 186 mg/dL High 70-99 [facility] Comment on above: Performed By: #### E 2, FSH #### [facility] [address] [place] [address] Judicial Registrar: Melvin Santoyo MD #### CBC #### [facility] [address] [place] [address] [place] [address] Judicial Registrar: Phillip Camarena MD Potassium [Moles/Vol] 4.4 mmol/L Normal 3.7-5.3 [facility] Comment on above: Performed By: #### E 2, FSH #### [address] [address] Judicial Registrar: Melvin Santoyo MD #### CBC #### [address] [place], [place] [id number] Judicial Registrar: Phillip Camarena MD Sodium [Moles/Vol] 135 mmol/L Normal 135-144 [facility] Comment on above: Performed By: #### E 2, FSH #### [address] [address] Judicial Registrar: Melvin Santoyo MD #### CBC #### [address] [place] [address] Judicial Registrar: Phillip Camarena MD Urea nitrogen [Mass/Vol] 30 mg/dL High 6-20 [facility] Comment on above: Performed By: #### E 2, FSH #### [address] [address] Judicial Registrar: Melvin Santoyo MD #### CBC #### [address] [place], [place] [id number] Judicial Registrar: Phillip Camarena MD Basic Metabolic Panel w/ Ref kartik to MGon 06-14-2023 Anion gap [Moles/Vol] 11 mmol/L 9 - 17 mmol/L [facility] Calcium [Mass/Vol] 9.9 mg/dL 8.6 - 10. 4 mg/dL [facility] Chloride [Moles/Vol] 98 mmol/L 98 - 10 7 mmol/L [facility] CO2 [Moles/Vol] 26 mmol/L 20 - 31 mmol/L [facility] Creatinine [Mass/Vol] 0.9 mg/dL 0.5 - 0.9 mg/dL [facility] GFR/1.73 sq M.predicted MDRD (S/P/Bld) [Vol rate/Area] - PINF [facility] Comment on above: These results are not intended for use in patients <18 years of age. eGFR results are calculated without a race factor using the 2020 CKD-EPI equation. Careful clinical correlation is recommended, particularly when comparing to results calculated using previous equations. The CKD-EPI equation is less accurate in patients with extremes of muscle mass, extra-renal metabolism of creatine, excessive creatine ingestion, or following therapy that affects renal tubular secretion. Glucose [Mass/Vol] 186 mg/dL High 70 - 99 mg/dL [facility] Interpretation and review of laboratory results Abnormal [facility] Potassium [Moles/Vol] 4.4 mmol/L 3.7 - 5.3 mmol/L [facility] Sodium [Moles/Vol] 135 mmol/L 135 - 144 mmol/L [facility] Urea nitrogen [Mass/Vol] 30 mg/dL High 6 - 20 mg/dL [facility] Urea nitrogen/Creatinine [Mass ratio] 33 mg/mg High 9 - 20 [facility] CBC auto differentialon 05-27 Basophils (Bld) [#/Vol] 0.03 10*3/uL [facility] Basophils/100 WBC (Bld) 0 % 0 - 2 % [facility] Eosinophils (Bld) [#/Vol] [facility] Eosinophils/100 WBC (Bld) 0 % Low 1 - 4 % [facility] Erythrocyte distribution width (RBC) [Ratio] 13.4 % 11.8 - 14.4 % [facility] Hematocrit (Bld) [Volume fraction] 35.7 % Low 36.3 - 47.1 % [facility] Hemoglobin (Bld) [Mass/Vol] 11.5 g/dL Low 11.9 - 15.1 g/dL [facility] Immature granulocytes (Bld) [#/Vol] 0.32 10*3/uL High [facility] Immature granulocytes/100 WBC (Bld) 3 % High 0 [facility] Interpretation and review of laboratory results Abnormal [facility] Lymphocytes/100 WBC (Bld) 16 % Low 24 - 43 % [facility] Lymphocytes/100 WBC (Bld) 1.82 % [facility] MCH (RBC) [Entitic mass] 31.1 pg 25.2 - 33.5 pg [facility] MCHC (RBC) [Mass/Vol] 32.2 g/dL 28.4 - 34.8 g/dL [facility] MCV (RBC) [Entitic vol] 96.5 fL 82.6 - 102.9 fL [facility] Monocytes/100 WBC (Bld) 5 % 3 - 12 % [facility] Monocytes/100 WBC (Bld) 0.52 % [facility] Neutrophils/100 WBC (Bld) 77 % High 36 - 65 % [facility] Nucleated RBC/100 WBC (Bld) [Ratio] 0.0 % 0.0 per 100 WBC [facility] Platelet mean volume (Bld) [Entitic vol] 9.2 fL 8.1 - 13.5 fL [facility] Platelets (Bld) [#/Vol] 355 10*3/uL [facility] RBC (Bld) [#/Vol] 3.70 10*6/uL Low 3.95 - 5.1 1 m/uL [facility] Segmented neutrophils/100 WBC (Bld) 8.74 % High [facility] WBC other (Bld) [#/Vol] 11.4 High [facility] CBC with Diffon 06-14-2023 Abs. Basophil 0.03 k/uL Normal 0.00-0.20 [facility] Comment on above: Performed By: #### E 2, FSH #### [id number] [place] [address] Judicial Registrar: Melvin Snatoyo MD #### CBC #### [facility] [address] [place] [address] [place] [address] Judicial Registrar: Phillip Camarena MD Abs. Eosinophil <0.03 Normal 0.00-0.[address] [facility] Comment on above: Performed By: #### E 2, FSH #### [address] [address] Judicial Registrar: Melvin Santoyo MD #### CBC #### [address] [place] [address] Judicial Registrar: Phillip Camarena MD Abs.Imm.Granulocyte 0.32 k/uL High 0.00-0.30 [facility] Comment on above: Performed By: #### E 2, FSH #### [address] [address] Judicial Registrar: Melvin Santoyo MD #### CBC #### [address] [place] [id number] ( Judicial Registrar: Phillip Camarena MD Abs.Neutrophil (Seg) 8.74 k/uL High 1.50-8.10 [facility] Comment on above: Performed By: #### E 2, FSH #### [address] [address] Judicial Registrar: Melvin Santoyo MD #### CBC #### [facility] [address] [place] [address] [place] [address] Judicial Registrar: Phillip Camarena MD Basophils/100 WBC (Bld) 0 % Normal 0-2 [facility] Comment on above: Performed By: #### E 2, FSH #### [address] [address] Judicial Registrar: Melvin Santoyo MD #### CBC #### [facility] [address] [place] [address] Dr. [place], [place] 9790183 Judicial Registrar: Phillip Camarena MD Eosinophils/100 WBC (Bld) 0 % Low 1-4 [facility] Comment on above: Performed By: #### E 2, FSH #### [address] [address] Judicial Registrar: Melvin Santoyo MD #### CBC #### [address] [place], [place] [id number] Judicial Registrar: Phillip Camarena MD Erythrocyte distribution width (RBC) [Ratio] 13.4 % Normal 11.8-14.4 [facility] Comment on above: Performed By: #### E 2, FSH #### [address] [address] Judicial Registrar: Melvin Santoyo MD #### CBC #### [address] [place], [place] 0552883 Judicial Registrar: Phillip Camarena MD Hematocrit (Bld) [Volume fraction] 35.7 % Low 36.3-47.1 [facility] Comment on above: Performed By: #### E 2, FSH #### [address] [address] Judicial Registrar: Melvin Santoyo MD #### CBC #### [address] [place] [address] Judicial Registrar: Phillip Camarena MD Hemoglobin (Bld) [Mass/Vol] 11.5 g/dL Low 11.9-15.1 [facility] Comment on above: Performed By: #### E 2, FSH #### [address] [address] Judicial Registrar: Melvin Santoyo MD #### CBC #### [facility] [address] [place], [place] 8201483 Judicial Registrar: Phillip Camarena MD Immature granulocytes/100 WBC (Bld) 3 % High 0 [facility] Comment on above: Performed By: #### E 2, FSH #### [address] [address] Judicial Registrar: Melvin Santoyo MD #### CBC #### [facility] [address] [place] [address] [address] [place] [id number] Judicial Registrar: Phillip Camarena MD Lymphocytes (Bld) [#/Vol] 1.82 10*3/uL Normal 1.10-3.70 [facility] Comment on above: Performed By: #### E 2, FSH #### [address] [address] Judicial Registrar: Melvin Santoyo MD #### CBC #### [facility] [address] [place] [address] Dr. [place] [id number] Judicial Registrar: Phillip Camarena MD Lymphocytes/100 WBC (Bld) 16 % Low 24-43 [facility] Comment on above: Performed By: #### E 2, FSH #### [address] [address] Judicial Registrar: Melvin Santoyo MD #### CBC #### [facility] [address] [place] [address] Dr. [place], [place] [phone] Judicial Registrar: Phillip Camarena MD MCH (RBC) [Entitic mass] 31.1 pg Normal 25.2-33.5 [facility] Comment on above: Performed By: #### E 2, FSH #### [address] [address] Judicial Registrar: Melvin Santoyo MD #### CBC #### [facility] [address] [place], [place] 2204783 Judicial Registrar: Phillip Camarena MD MCHC (RBC) [Mass/Vol] 32.2 g/dL Normal 28.4-34.8 [facility] Comment on above: Performed By: #### E 2, FSH #### [address] [address] Judicial Registrar: Melvin Santoyo MD #### CBC #### [facility] [address] [place], [place] 1416183 Judicial Registrar: Phillip Camarena MD MCV (RBC) [Entitic vol] 96.5 fL Normal 82.6-102.9 [facility] Comment on above: Performed By: #### E 2, FSH #### [address] [address] Judicial Registrar: Melvin Santoyo MD #### CBC #### [facility] [address] [place], [place] 704[address]83 Judicial Registrar: Phillip Camarena MD Monocytes (Bld) [#/Vol] 0.52 10*3/uL Normal 0.10-1.20 [facility] Comment on above: Performed By: #### E 2, FSH #### [address] [address] Judicial Registrar: Melvin Santoyo MD #### CBC #### [facility] [address] [place], [place] 4662883 Judicial Registrar: Phillip Camarena MD Monocytes/100 WBC (Bld) 5 % Normal 3-12 [facility] Comment on above: Performed By: #### E 2, FSH #### [address] [address] Judicial Registrar: Melvin Santoyo MD #### CBC #### [facility] [address] [place], [place] 258[address]83 Judicial Registrar: Phillip Camarena MD Neutrophil (Seg) 77 % High 36-65 [facility] Comment on above: Performed By: #### E 2, FSH #### [address] [place] [address] Judicial Registrar: Melvin Santoyo MD #### CBC #### [facility] [address] [place] [address] Judicial Registrar: Phillip Camarena MD NRBC Automated 0.0 per 100 WBC Normal 0.0 [facility] Comment on above: Performed By: #### E 2, FSH #### [address] [address] Judicial Registrar: Melvin Santoyo MD #### CBC #### [address] [place], [place] 7442883 Judicial Registrar: Phillip Camarena MD Platelet mean volume (Bld) [Entitic vol] 9.2 fL Normal 8.1-13.5 [facility] Comment on above: Performed By: #### E 2, FSH #### [address] [address] Judicial Registrar: Melvin Santoyo MD #### CBC #### [address] [place], [place] [id number] Judicial Registrar: Phillip Camarena MD Platelets (Bld) [#/Vol] 355 10*3/uL Normal 138-453 [facility] Comment on above: Performed By: #### E 2, FSH #### [address] [address] Judicial Registrar: Melvin Santoyo MD #### CBC #### [address] [place], [place] 6466383 Judicial Registrar: Phillip Camarena MD RBC (Bld) [#/Vol] 3.70 10*6/uL Low 3.95-5.11 [facility] Comment on above: Performed By: #### E 2, FSH #### [facility] [address] [place] [address] Judicial Registrar: Melvin Santoyo MD #### CBC #### [facility] [address] [place] [address] Judicial Registrar: Phillip Camarena MD WBC (Bld) [#/Vol] 11.4 10*3/uL High 3.5-11.3 [facility] Comment on above: Performed By: #### E 2, FSH #### [facility] [address] [place], [place] 0632[address] Judicial Registrar: Melvin Santoyo MD #### CBC #### [facility] [address] [place] [address] Judicial Registrar: Phillip Camarena MD Glucose, Whole Bloodon 06-14 Glucose [Mass/Vol] 228 mg/dL High 74 - 100 mg/dL [facility] Interpretation and review of laboratory results Abnormal [facility] Glucose [Mass/Vol] 167 mg/dL High 74 - 100 mg/dL [facility] Interpretation and review of laboratory results Abnormal [facility] Basic Metab w/rfx MGon 06-13 Anion gap [Moles/Vol] 12 mmol/L Normal -17 [facility] Comment on above: Performed By: #### E 2, FSH #### [facility] [address] [place] [address] Judicial Registrar: Melvin Santoyo MD #### CBC #### [facility] [address] [place] [address] Judicial Registrar: Phillip Camarena MD BUN/CRE Ratio 40 High 9- [facility] Comment on above: Performed By: #### E 2, FSH #### [address] [address] Judicial Registrar: Melvin Santoyo MD #### CBC #### [facility] [address] [place], [place] [id number] Judicial Registrar: Phillip Camarena MD Calcium [Mass/Vol] 9.7 mg/dL Normal 8.6-10.4 [facility] Comment on above: Performed By: #### E 2, FSH #### [address] [address] Judicial Registrar: Melvin Santoyo MD #### CBC #### [facility] [address] [place] [address] [address]. [place], [place] [id number] Judicial Registrar: Phillip Camarena MD Chloride [Moles/Vol] 103 mmol/L Normal 98-107 [facility] Comment on above: Performed By: #### E 2, FSH #### [address] [address] Judicial Registrar: Melvin Santoyo MD #### CBC #### [address] [place], [place] [id number] Judicial Registrar: Phillip Camarena MD CO2 [Moles/Vol] 23 mmol/L Normal 20-[address] [facility] Comment on above: Performed By: #### E 2, FSH #### [address] [address] Judicial Registrar: Melvin Santoyo MD #### CBC #### [facility] [address] [place] [address] [address] [place], [place] [id number] Judicial Registrar: Phillip Camarena MD Creatinine [Mass/Vol] 0.7 mg/dL Normal 0.5-0.9 [facility] Comment on above: Performed By: #### E 2, FSH #### [address] [id number] Judicial Registrar: Melvin Santoyo MD #### CBC #### [facility] [address] [place] [address] [place] [address] Judicial Registrar: Phillip Camarena MD GFR/1.73 sq M.predicted among non-blacks MDRD (S/P/Bld) [Vol rate/Area] mL/min/{1.73_m2} Normal >60 [facility] Comment on above: Result Comment: These results are not intended for use in patients <18 years of age. eGFR results are calculated without a race factor using the 2020 CKD-EPI equation. Careful clinical correlation is recommended, particularly when comparing to results calculated using previous equations. The CKD-EPI equation is less accurate in patients with extremes of muscle mass, extra-renal metabolism of creatine, excessive creatine ingestion, or following therapy that affects renal tubular secretion. Performed By: #### E 2, FSH #### [address] [address] Judicial Registrar: Melvin Santoyo MD #### CBC #### [address] [place] [address] Judicial Registrar: Phillip Camarena MD Glucose [Mass/Vol] 199 mg/dL High 70-99 [facility] Comment on above: Performed By: #### E 2, FSH #### [address] [address] Judicial Registrar: Melvin Santoyo MD #### CBC #### [facility] [address] [place] [address] [place] [address] Judicial Registrar: Phillip Camarena MD Potassium [Moles/Vol] 4.3 mmol/L Normal 3.7-5.3 [facility] Comment on above: Performed By: #### E 2, FSH #### [address] [address] Judicial Registrar: Melvin Santoyo MD #### CBC #### [address] [place], [place] [id number] Judicial Registrar: Phillip Camarena MD Sodium [Moles/Vol] 138 mmol/L Normal 135-144 [facility] Comment on above: Performed By: #### E 2, FSH #### [facility] [address] [place], [place] [id number] Judicial Registrar: Melvin Santoyo MD #### CBC #### [facility] [address] [place], [place] [id number] Judicial Registrar: Phillip Camarena MD Urea nitrogen [Mass/Vol] 28 mg/dL High 6-20 [facility] Comment on above: Performed By: #### E 2, FSH #### [facility] [address] [place] [address] Judicial Registrar: Melvin Santoyo MD #### CBC #### [facility] [address] [place], [place] [phone] Judicial Registrar: Phillip Camarena MD Basic Metabolic Panel w/ Ref kartik to MGon 06-13-2023 Anion gap [Moles/Vol] 12 mmol/L 9 - 17 mmol/L [facility] Calcium [Mass/Vol] 9.7 mg/dL 8.6 - 10. 4 mg/dL [facility] Chloride [Moles/Vol] 103 mmol/L 98 - 10 7 mmol/L [facility] CO2 [Moles/Vol] 23 mmol/L 20 - 31 mmol/L [facility] Creatinine [Mass/Vol] 0.7 mg/dL 0.5 - 0.9 mg/dL [facility] GFR/1.73 sq M.predicted MDRD (S/P/Bld) [Vol rate/Area] - PINF [facility] Comment on above: These results are not intended for use in patients <18 years of age. eGFR results are calculated without a race factor using the 2020 CKD-EPI equation. Careful clinical correlation is recommended, particularly when comparing to results calculated using previous equations. The CKD-EPI equation is less accurate in patients with extremes of muscle mass, extra-renal metabolism of creatine, excessive creatine ingestion, or following therapy that affects renal tubular secretion. Glucose [Mass/Vol] 199 mg/dL High 70 - 99 mg/dL [facility] Interpretation and review of laboratory results Abnormal [facility] Potassium [Moles/Vol] 4.3 mmol/L 3.7 - 5.3 mmol/L [facility] Sodium [Moles/Vol] 138 mmol/L 135 - 144 mmol/L [facility] Urea nitrogen [Mass/Vol] 28 mg/dL High 6 - 20 mg/dL [facility] Urea nitrogen/Creatinine [Mass ratio] 40 mg/mg High 9 - 20 [facility] CBC auto differentialon 05-27 Basophils (Bld) [#/Vol] [facility] Basophils/100 WBC (Bld) 0 % 0 - 2 % [facility] Eosinophils (Bld) [#/Vol] [facility] Eosinophils/100 WBC (Bld) 0 % Low 1 - 4 % [facility] Erythrocyte distribution width (RBC) [Ratio] 13.6 % 11.8 - 14.4 % [facility] Hematocrit (Bld) [Volume fraction] 38.0 % 36.3 - 47.1 % [facility] Hemoglobin (Bld) [Mass/Vol] 12.2 g/dL 11.9 - 15.1 g/dL [facility] Immature granulocytes (Bld) [#/Vol] 0.24 10*3/uL [facility] Immature granulocytes/100 WBC (Bld) 2 % High 0 [facility] Interpretation and review of laboratory results Abnormal [facility] Lymphocytes/100 WBC (Bld) 14 % Low 24 - 43 % [facility] Lymphocytes/100 WBC (Bld) 1.87 % [facility] MCH (RBC) [Entitic mass] 31.2 pg 25.2 - 33.5 pg [facility] MCHC (RBC) [Mass/Vol] 32.1 g/dL 28.4 - 34.8 g/dL [facility] MCV (RBC) [Entitic vol] 97.2 fL 82.6 - 102.9 fL [facility] Monocytes/100 WBC (Bld) 5 % 3 - 12 % [facility] Monocytes/100 WBC (Bld) 0.60 % [facility] Neutrophils/100 WBC (Bld) 80 % High 36 - 65 % [facility] Nucleated RBC/100 WBC (Bld) [Ratio] 0.0 % 0.0 per 100 WBC [facility] Platelet mean volume (Bld) [Entitic vol] 9.5 fL 8.1 - 13.5 fL [facility] Platelets (Bld) [#/Vol] 226 10*3/uL [facility] RBC (Bld) [#/Vol] 3.91 10*6/uL Low 3.95 - 5.1 1 m/uL [facility] Segmented neutrophils/100 WBC (Bld) 10.70 % High [facility] WBC other (Bld) [#/Vol] 13.4 High [facility] CBC with Diffon 06-13-2023 Abs. Basophil <0.03 Normal 0.00-0.20 [facility] Comment on above: Performed By: #### E 2, FSH #### [facility] [address] [place] [address] Judicial Registrar: Melvin Santoyo MD #### CBC #### [facility] [address] [place] [address] [place] [address] Judicial Registrar: Phillip Camarena MD Abs. Eosinophil <0.03 Normal 0.00-0.[address] [facility] Comment on above: Performed By: #### E 2, FSH #### [facility] [address] [place], [place] [id number] Judicial Registrar: Melvin Santoyo MD #### CBC #### [facility] [address] [place] [address] Judicial Registrar: Phillip Camarena MD Abs.Imm.Granulocyte 0.24 k/uL Normal 0.00-0.30 [facility] Comment on above: Performed By: #### E 2, FSH #### [address] [address] Judicial Registrar: Melvin Santoyo MD #### CBC #### [facility] [address] [place] [address] [place] [address] Judicial Registrar: Phillip Camarena MD Abs.Neutrophil (Seg) 10.70 k/uL High 1.50-8.10 [facility] Comment on above: Performed By: #### E 2, FSH #### [address] [address] Judicial Registrar: Melvin Santoyo MD #### CBC #### [facility] [address] [place] [address] Dr. [place], [place] [id number] Judicial Registrar: Phillip Camarena MD Basophils/100 WBC (Bld) 0 % Normal 0-2 [facility] Comment on above: Performed By: #### E 2, FSH #### [address] [address] Judicial Registrar: Melvin Santoyo MD #### CBC #### [facility] [address] [place] [address] [place] [address] Judicial Registrar: Phillip Camarena MD Eosinophils/100 WBC (Bld) 0 % Low 1-4 [facility] Comment on above: Performed By: #### E 2, FSH #### [address] [address] Judicial Registrar: Melvin Santoyo MD #### CBC #### [facility] [address] [place] [address] Dr. [place], [place] [phone] Judicial Registrar: Phillip Camarena MD Immature granulocytes/100 WBC (Bld) 2 % High 0 [facility] Comment on above: Performed By: #### E 2, FSH #### [address] [address] Judicial Registrar: Melvin Santoyo MD #### CBC #### [facility] [address] [place] [address] Judicial Registrar: Phillip Camarena MD Lymphocytes (Bld) [#/Vol] 1.87 10*3/uL Normal 1.10-3.70 [facility] Comment on above: Performed By: #### E 2, FSH #### [address] [address] Judicial Registrar: Melvin Santoyo MD #### CBC #### [facility] [address] [place] [phone] ( Judicial Registrar: Phillip Camarena MD Lymphocytes/100 WBC (Bld) 14 % Low 24-43 [facility] Comment on above: Performed By: #### E 2, FSH #### [address] [address] Judicial Registrar: Melvin Santoyo MD #### CBC #### [facility] [address] [place] 7[address]83 Judicial Registrar: Phillip Camarena MD Monocytes (Bld) [#/Vol] 0.60 10*3/uL Normal 0.10-1.20 [facility] Comment on above: Performed By: #### E 2, FSH #### [address] [address] Judicial Registrar: Melvin Santoyo MD #### CBC #### [facility] [address] [place] [address]47 ( Judicial Registrar: Phillip Camarena MD Monocytes/100 WBC (Bld) 5 % Normal 3-12 [facility] Comment on above: Performed By: #### E 2, FSH #### [address] [address] Judicial Registrar: Melvin Santoyo MD #### CBC #### [address] [place], [place] 8297783 Judicial Registrar: Phillip Camarena MD Neutrophil (Seg) 80 % High 36-65 [facility] Comment on above: Performed By: #### E 2, FSH #### [place] [address] [place] [address] Judicial Registrar: Melvin Santoyo MD #### CBC #### [address] [place], [place] 7855383 Judicial Registrar: Phillip Camarena MD Erythrocyte distribution width (RBC) [Ratio] 13.6 % Normal 11.8-14.4 [facility] Comment on above: Performed By: #### E 2, FSH #### [address] [address] Judicial Registrar: Melvin Santoyo MD #### CBC #### [address] [place], [place] 5145383 Judicial Registrar: Phillip Camarena MD Hematocrit (Bld) [Volume fraction] 38.0 % Normal 36.3-47.1 [facility] Comment on above: Performed By: #### E 2, FSH #### [address] [address] Judicial Registrar: Melvin Santoyo MD #### CBC #### [address] [place], [place] 6079283 Judicial Registrar: Phillip Camarena MD Hemoglobin (Bld) [Mass/Vol] 12.2 g/dL Normal 11.9-15.1 [facility] Comment on above: Performed By: #### E 2, FSH #### [address] [address] Judicial Registrar: Melvin Santoyo MD #### CBC #### [address] [place], [place] 1101683 Judicial Registrar: Phillip Camarena MD MCH (RBC) [Entitic mass] 31.2 pg Normal 25.2-33.5 [facility] Comment on above: Performed By: #### E 2, FSH #### [address] [address] Judicial Registrar: Melvin Santoyo MD #### CBC #### [address] [place] [address] Judicial Registrar: Phillip Camarena MD MCHC (RBC) [Mass/Vol] 32.1 g/dL Normal 28.4-34.8 [facility] Comment on above: Performed By: #### E 2, FSH #### [address] [id number] Judicial Registrar: Melvin Santoyo MD #### CBC #### [address] [place] [address] Judicial Registrar: Phillip Camarena MD MCV (RBC) [Entitic vol] 97.2 fL Normal 82.6-102.9 [facility] Comment on above: Performed By: #### E 2, FSH #### [address] [address] Judicial Registrar: Melvin Santoyo MD #### CBC #### [address] [place] [address] Judicial Registrar: Phillip Camarena MD NRBC Automated 0.0 per 100 WBC Normal 0.0 [facility] Comment on above: Performed By: #### E 2, FSH #### [address] [address] Judicial Registrar: Melvin Santoyo MD #### CBC #### [address] [place], [place] 2997583 Judicial Registrar: Phillip Camarena MD Platelet mean volume (Bld) [Entitic vol] 9.5 fL Normal 8.1-13.5 [facility] Comment on above: Performed By: #### E 2, FSH #### [facility] [address] [place] [address] Judicial Registrar: Melvin Santoyo MD #### CBC #### [facility] [address] [place] [address] Dr. [place], [place] [phone] Judicial Registrar: Phillip Camarena MD Platelets (Bld) [#/Vol] 226 10*3/uL Normal 138-453 [facility] Comment on above: Performed By: #### E 2, FSH #### [address] [place] [place] [address] Judicial Registrar: Melvin Santoyo MD #### CBC #### [facility] [address] [place] [address] Dr. [place], [place] [id number] Judicial Registrar: Phillip Camarena MD RBC (Bld) [#/Vol] 3.91 10*6/uL Low 3.95-5.11 [facility] Comment on above: Performed By: #### E 2, FSH #### [place] [place] [place] [address] Judicial Registrar: Melvin Santoyo MD #### CBC #### [facility] [address] [place] [address] Dr. [place], [place] [phone] Judicial Registrar: Phillip Camarena MD WBC (Bld) [#/Vol] 13.4 10*3/uL High 3.5-11.3 [facility] Comment on above: Performed By: #### E 2, FSH #### [facility] [address] [place] [address] Judicial Registrar: Melvin Santoyo MD #### CBC #### [facility] [address] [place] [address] [place] [address] Judicial Registrar: Phillip Camarena MD EKG Rhythm Stripon 3 [facility] Glucose, Whole Bloodon 06-13 Glucose [Mass/Vol] 207 mg/dL High 74 - 100 mg/dL [facility] Interpretation and review of laboratory results Abnormal [facility] Glucose [Mass/Vol] 217 mg/dL High 74 - 100 mg/dL [facility] Interpretation and review of laboratory results Abnormal [facility] Glucose [Mass/Vol] 197 mg/dL High 74 - 100 mg/dL [facility] Interpretation and review of laboratory results Abnormal [facility] Glucose [Mass/Vol] 180 mg/dL High 74 - 100 mg/dL [facility] Interpretation and review of laboratory results Abnormal [facility] Basic Metab w/rfx MGon 06-12 Anion gap [Moles/Vol] 12 mmol/L Normal [facility] Comment on above: Performed By: #### E 2, FSH #### [facility] [address] [place], [place] 6598208 Judicial Registrar: Melvin Santoyo MD #### CBC #### [facility] [address] [place] [address] Judicial Registrar: Phillip Camarena MD BUN/CRE Ratio 29 High 9-20 [facility] Comment on above: Performed By: #### E 2, FSH #### [facility] [address] [place] [address] Judicial Registrar: Melvin Santoyo MD #### CBC #### [facility] [address] [place] [address] Judicial Registrar: Phillip Camarena MD Calcium [Mass/Vol] 9.3 mg/dL Normal 8.6-10.4 [facility] Comment on above: Performed By: #### E 2, FSH #### [address] [address] Judicial Registrar: Melvin Santoyo MD #### CBC #### [facility] [address] [place] [address] Judicial Registrar: Phillip Camarena MD Chloride [Moles/Vol] 99 mmol/L Normal 98-107 [facility] Comment on above: Performed By: #### E 2, FSH #### [address] [address] Judicial Registrar: Melvin Santoyo MD #### CBC #### [facility] [address] [place] [address]83 Judicial Registrar: Phillip Camarena MD CO2 [Moles/Vol] 24 mmol/L Normal 20-[address] [facility] Comment on above: Performed By: #### E 2, FSH #### [address] [address] Judicial Registrar: Melvin Snatoyo MD #### CBC #### [facility] [address] [place] [address] [place] [address] Judicial Registrar: Phillip Camarena MD Creatinine [Mass/Vol] 0.8 mg/dL Normal 0.5-0.9 [facility] Comment on above: Performed By: #### E 2, FSH #### [address] [address] Judicial Registrar: Melvin Santoyo MD #### CBC #### [facility] [address] [place] [address]83 Judicial Registrar: Phillip Camarena MD GFR/1.73 sq M.predicted among non-blacks MDRD (S/P/Bld) [Vol rate/Area] mL/min/{1.73_m2} Normal >60 [facility] Comment on above: Result Comment: These results are not intended for use in patients <18 years of age. eGFR results are calculated without a race factor using the 2020 CKD-EPI equation. Careful clinical correlation is recommended, particularly when comparing to results calculated using previous equations. The CKD-EPI equation is less accurate in patients with extremes of muscle mass, extra-renal metabolism of creatine, excessive creatine ingestion, or following therapy that affects renal tubular secretion. Performed By: #### E 2, FSH #### [address] [address] Judicial Registrar: Melvin Santoyo MD #### CBC #### [address] [place], [place] 9821483 Judicial Registrar: Phillip Camarena MD Glucose [Mass/Vol] 295 mg/dL High 70-99 [facility] Comment on above: Performed By: #### E 2, FSH #### [address] [address] Judicial Registrar: Melvin Santoyo MD #### CBC #### [address] [place], [place] [phone] Judicial Registrar: Phillip Camarena MD Potassium [Moles/Vol] 4.7 mmol/L Normal 3.7-5.3 [facility] Comment on above: Performed By: #### E 2, FSH #### [address] [address] Judicial Registrar: Melvin Santoyo MD #### CBC #### [address] [place], [place] 8916983 Judicial Registrar: Phillip Camarena MD Sodium [Moles/Vol] 135 mmol/L Normal 135-144 [facility] Comment on above: Performed By: #### E 2, FSH #### [address] [address] Judicial Registrar: Melvin Santoyo MD #### CBC #### [address] [place], [place] [id number] Judicial Registrar: Phillip Camarena MD Urea nitrogen [Mass/Vol] 23 mg/dL High 6-20 [facility] Comment on above: Performed By: #### E 2, FSH #### [facility] [address] [place] [address] Judicial Registrar: Melvin Santoyo MD #### CBC #### [facility] [address] [place] [address] Judicial Registrar: Phillip Camarena MD Basic Metabolic Panel w/ Ref kartik to MGon 06-12-2023 Anion gap [Moles/Vol] 12 mmol/L [facility] [employer] Calcium [Mass/Vol] 9.3 mg/dL 8.6 - 10. 4 mg/dL [facility] [employer] Chloride [Moles/Vol] 99 mmol/L 98 - 10 7 mmol/L [facility] [employer] CO2 [Moles/Vol] 24 mmol/L 20 - 31 mmol/L [facility] [employer] Creatinine [Mass/Vol] 0.8 mg/dL 0.5 - 0.9 mg/dL [facility] GFR/1.73 sq M.predicted MDRD (S/P/Bld) [Vol rate/Area] - PINF [facility] Comment on above: These results are not intended for use in patients <18 years of age. eGFR results are calculated without a race factor using the 2020 CKD-EPI equation. Careful clinical correlation is recommended, particularly when comparing to results calculated using previous equations. The CKD-EPI equation is less accurate in patients with extremes of muscle mass, extra-renal metabolism of creatine, excessive creatine ingestion, or following therapy that affects renal tubular secretion. Glucose [Mass/Vol] 295 mg/dL High 70 - 99 mg/dL [facility] Interpretation and review of laboratory results Abnormal [facility] Potassium [Moles/Vol] 4.7 mmol/L 3.7 - 5.3 mmol/L [facility] Sodium [Moles/Vol] 135 mmol/L 135 - 144 mmol/L [facility] Urea nitrogen [Mass/Vol] 23 mg/dL High 6 - 20 mg/dL [facility] Urea nitrogen/Creatinine [Mass ratio] 29 mg/mg High 9 - 20 [facility] CBC auto differentialon 05-27 Basophils (Bld) [#/Vol] 0.04 10*3/uL [facility] Basophils/100 WBC (Bld) 0 % 0 - 2 % [facility] Eosinophils (Bld) [#/Vol] [facility] Eosinophils/100 WBC (Bld) 0 % Low 1 - 4 % [facility] Erythrocyte distribution width (RBC) [Ratio] 13.7 % 11.8 - 14.4 % [facility] Hematocrit (Bld) [Volume fraction] 34.5 % Low 36.3 - 47.1 % [facility] Hemoglobin (Bld) [Mass/Vol] 11.2 g/dL Low 11.9 - 15.1 g/dL [facility] Immature granulocytes (Bld) [#/Vol] 0.18 10*3/uL [facility] Immature granulocytes/100 WBC (Bld) 1 % High 0 [facility] Interpretation and review of laboratory results Abnormal [facility] Lymphocytes/100 WBC (Bld) 10 % Low 24 - 43 % [facility] Lymphocytes/100 WBC (Bld) 1.59 % [facility] MCH (RBC) [Entitic mass] 31.6 pg 25.2 - 33.5 pg [facility] MCHC (RBC) [Mass/Vol] 32.5 g/dL 28.4 - 34.8 g/dL [facility] MCV (RBC) [Entitic vol] 97.5 fL 82.6 - 102.9 fL [facility] Monocytes/100 WBC (Bld) 2 % Low 3 - 12 % [facility] Monocytes/100 WBC (Bld) 0.30 % [facility] Neutrophils/100 WBC (Bld) 87 % High 36 - 65 % [facility] Nucleated RBC/100 WBC (Bld) [Ratio] 0.0 % 0.0 per 100 WBC [facility] Platelet mean volume (Bld) [Entitic vol] 10.6 fL 8.1 - 13.5 fL [facility] Platelets (Bld) [#/Vol] 367 10*3/uL [facility] RBC (Bld) [#/Vol] 3.54 10*6/uL Low 3.95 - 5.1 1 m/uL [facility] Segmented neutrophils/100 WBC (Bld) 14.32 % High [facility] WBC other (Bld) [#/Vol] 16.4 High [facility] CBC with Diffon 06-12-2023 Abs. Basophil 0.04 k/uL Normal 0.00-0.20 [facility] Comment on above: Performed By: #### E 2, FSH #### [address] [address] Judicial Registrar: Melvin Santoyo MD #### CBC #### [facility] [address] [place] [address] Dr. [place] [id number] Judicial Registrar: Phillip Camarena MD Abs. Eosinophil <0.03 Normal 0.00-0.[address] [facility] Comment on above: Performed By: #### E 2, FSH #### [address] [address] Judicial Registrar: Melvin Santoyo MD #### CBC #### [facility] [address] [place] [address] Dr. [place] [id number] Judicial Registrar: Phillip Camarena MD Abs.Imm.Granulocyte 0.18 k/uL Normal 0.00-0.30 [facility] Comment on above: Performed By: #### E 2, FSH #### [address] [address] Judicial Registrar: Melvin Santoyo MD #### CBC #### [facility] [address] [place] [address] [place] [address] Judicial Registrar: Phillip Camarena MD Abs.Neutrophil (Seg) 14.32 k/uL High 1.50-8.10 [facility] Comment on above: Performed By: #### E 2, FSH #### [address] [address] Judicial Registrar: Melvin Santoyo MD #### CBC #### [facility] [address] [place] [address] Dr. [place], [place] [id number] Judicial Registrar: Phillip Camarena MD Basophils/100 WBC (Bld) 0 % Normal 0-2 [facility] Comment on above: Performed By: #### E 2, FSH #### [address] [address] Judicial Registrar: Melvin Santoyo MD #### CBC #### [address] [place] [address] Judicial Registrar: Phillip Camarena MD Eosinophils/100 WBC (Bld) 0 % Low 1-4 [facility] Comment on above: Performed By: #### E 2, FSH #### [address] [address] Judicial Registrar: Melvin Santoyo MD #### CBC #### [facility] [address] [place] [address] [place] [address] Judicial Registrar: Phillip Camarena MD Erythrocyte distribution width (RBC) [Ratio] 13.7 % Normal 11.8-14.4 [facility] Comment on above: Performed By: #### E 2, FSH #### [address] [address] Judicial Registrar: Melvin Santoyo MD #### CBC #### [facility] [address] [place] [address] [place] [address] Judicial Registrar: Phillip Camarena MD Hematocrit (Bld) [Volume fraction] 34.5 % Low 36.3-47.1 [facility] Comment on above: Performed By: #### E 2, FSH #### [address] [address] Judicial Registrar: Melvin Santoyo MD #### CBC #### [facility] [address] [place] [address] Judicial Registrar: Phillip Camarena MD Hemoglobin (Bld) [Mass/Vol] 11.2 g/dL Low 11.9-15.1 [facility] Comment on above: Performed By: #### E 2, FSH #### [address] [address] Judicial Registrar: Melvin Santoyo MD #### CBC #### [facility] [address] [place] [address] [place] [address] Judicial Registrar: Phillip Camarena MD Immature granulocytes/100 WBC (Bld) 1 % High 0 [facility] Comment on above: Performed By: #### E 2, FSH #### [address] [address] Judicial Registrar: Melvin Santoyo MD #### CBC #### [facility] [address] [place] [address] Dr. [place] [facility]83 Judicial Registrar: Phillip Camarena MD Lymphocytes (Bld) [#/Vol] 1.59 10*3/uL Normal 1.10-3.70 [facility] Comment on above: Performed By: #### E 2, FSH #### [address] [address] Judicial Registrar: Melvin Santoyo MD #### CBC #### [facility] [address] [place] [address] Dr. [place] [phone] Judicial Registrar: Phillip Camarena MD Lymphocytes/100 WBC (Bld) 10 % Low 24-43 [facility] Comment on above: Performed By: #### E 2, FSH #### [address] [address] Judicial Registrar: Melvin Santoyo MD #### CBC #### [facility] [address] [place], [place] [id number] Judicial Registrar: Phillip Camarena MD MCH (RBC) [Entitic mass] 31.6 pg Normal 25.2-33.5 [facility] Comment on above: Performed By: #### E 2, FSH #### [address] [address] Judicial Registrar: Melvin Santoyo MD #### CBC #### [address] [place] [phone] Judicial Registrar: Phillip Camarena MD MCHC (RBC) [Mass/Vol] 32.5 g/dL Normal 28.4-34.8 [facility] Comment on above: Performed By: #### E 2, FSH #### [address] [id number] Judicial Registrar: Melvin Santoyo MD #### CBC #### [address] [place] [phone] Judicial Registrar: Phillip Camarena MD MCV (RBC) [Entitic vol] 97.5 fL Normal 82.6-102.9 [facility] Comment on above: Performed By: #### E 2, FSH #### [address] [address] Judicial Registrar: Melvin Santoyo MD #### CBC #### [address] [place] [phone] Judicial Registrar: Phillip Camarena MD Monocytes (Bld) [#/Vol] 0.30 10*3/uL Normal 0.10-1.20 [facility] Comment on above: Performed By: #### E 2, FSH #### [address] [address] Judicial Registrar: Melvin Santoyo MD #### CBC #### [address] [place] [phone] Judicial Registrar: Phillip Camarena MD Monocytes/100 WBC (Bld) 2 % Low 3-12 [facility] Comment on above: Performed By: #### E 2, FSH #### [facility] [address] [place] [address] Judicial Registrar: Melvin Santoyo MD #### CBC #### [facility] [address] [place], [place] [phone] Judicial Registrar: Phillip Camarena MD Neutrophil (Seg) 87 % High 36-65 [facility] Comment on above: Performed By: #### E 2, FSH #### [place] [address] [place] [address] Judicial Registrar: Melvin Santoyo MD #### CBC #### [facility] [address] [place] [address] [place] [address] Judicial Registrar: Phillip Camarena MD NRBC Automated 0.0 per 100 WBC Normal 0.0 [facility] Comment on above: Performed By: #### E 2, FSH #### [facility] [address] [place] [address] Judicial Registrar: Melvin Santoyo MD #### CBC #### [address] [place], [place] [phone] Judicial Registrar: Phillip Camarena MD Platelet mean volume (Bld) [Entitic vol] 10.6 fL Normal 8.1-13.5 [facility] Comment on above: Performed By: #### E 2, FSH #### [facility] [address] [place] [address] Judicial Registrar: Melvin Santoyo MD #### CBC #### [facility] [address] [place] [address] [place] [address] Judicial Registrar: Phlilip Camarena MD Platelets (Bld) [#/Vol] 367 10*3/uL Normal 138-453 [facility] Comment on above: Performed By: #### E 2, FSH #### [facility] [address] [place] [address] Judicial Registrar: Melvin Santoyo MD #### CBC #### [facility] [address] [place], [place] 1142983 Judicial Registrar: Phillip Camarena MD RBC (Bld) [#/Vol] 3.54 10*6/uL Low 3.95-5.11 [facility] Comment on above: Performed By: #### E 2, FSH #### [facility] [address] [place] [address] Judicial Registrar: Melvin Santoyo MD #### CBC #### [facility] [address] [place] [address] [place], [place] [phone] Judicial Registrar: Phillip Camarena MD WBC (Bld) [#/Vol] 16.4 10*3/uL High 3.5-11.3 [facility] Comment on above: Performed By: #### E 2, FSH #### [facility] [address] [place] [address] Judicial Registrar: Melvin Santoyo MD #### CBC #### [facility] [address] [place] [address] [place] [address] Judicial Registrar: Phillip Camarena MD EKG Rhythm Stripon 3 [facility] Glucose, Whole Bloodon 06-12 Glucose [Mass/Vol] 175 mg/dL High 74 - 100 mg/dL [facility] Interpretation and review of laboratory results Abnormal [facility] Glucose [Mass/Vol] 567 mg/dL Critically high 74 - 1 00 mg/dL [facility] Interpretation and review of laboratory results Abnormal [facility] Glucose [Mass/Vol] 199 mg/dL High 74 - 100 mg/dL [facility] Interpretation and review of laboratory results Abnormal [facility] Glucose [Mass/Vol] 249 mg/dL High 74 - 100 mg/dL [facility] Interpretation and review of laboratory results Abnormal [facility] Glucose [Mass/Vol] 283 mg/dL High 74 - 100 mg/dL [facility] Interpretation and review of laboratory results Abnormal [facility] Procalcitoninon 06-12-2023 Procalcitonin 0.07 ng/mL Normal <0.09 [facility] Comment on above: Result Comment: Suspected Sepsis: <0.50 ng/mL Low likelihood of sepsis. 0.50-2.00 ng/mL Increased likelihood of sepsis. Antibiotics encouraged. >2.00 ng/mL High risk of sepsis/shock. Antibiotics strongly encouraged. Suspected Lower Resp Tract Infections: <0.24 ng/mL Low likelihood of bacterial infection. >0.24 ng/mL Increased likelihood of bacterial infection. Antibiotics encouraged. With successful antibiotic therapy, PCT levels should decrease rapidly. (Half-life of 24 to 36 hours.) Procalcitonin values from samples collected within the first 6 hours of systemic infection may still be low. Retesting may be indicated. Values from day 1 and day 4 can be entered into the Change in Procalcitonin Calculator (www.twepbk-nam-qxbtadeykm.[employer] to determine the patient's Mortality Risk Prognosis In healthy neonates, plasma Procalcitonin (PCT) concentrations increase gradually after , reaching peak values at about 24 hours of age then decrease to normal values below 0.5 ng/mL by 48-72 hours of age. Performed By: #### P RCAL #### [employer] [address] [place] [address] Judicial Registrar: Melvin Santoyo MD Basic Metab w/rfx MGon 06-11 Anion gap [Moles/Vol] 10 mmol/L Normal - [facility] Comment on above: Performed By: #### E 2, FSH #### [employer] [address] [place] [address] Judicial Registrar: Melvin Santoyo MD #### CBC #### [facility] [address] [place], [place] [phone] Judicial Registrar: Phillip Camarena MD BUN/CRE Ratio 13 Normal 9-20 [facility] Comment on above: Performed By: #### E 2, FSH #### [facility] [address] [place] [address] Judicial Registrar: Melvin Santoyo MD #### CBC #### [facility] [address] [place], [place] [phone] Judicial Registrar: Phillip Camarena MD Calcium [Mass/Vol] 9.1 mg/dL Normal 8.6-10.4 [facility] Comment on above: Performed By: #### E 2, FSH #### [address] [address] Judicial Registrar: Melvin Santoyo MD #### CBC #### [facility] [address] [place] [address] Dr. [place], [place] [phone] Judicial Registrar: Phillip Camarena MD Chloride [Moles/Vol] 105 mmol/L Normal 98-107 [facility] Comment on above: Performed By: #### E 2, FSH #### [address] [address] Judicial Registrar: Melvin Santoyo MD #### CBC #### [facility] [address] [place] [address] Dr. [place], [place] [phone] Judicial Registrar: Phillip Camarena MD CO2 [Moles/Vol] 26 mmol/L Normal 20-[address] [facility] Comment on above: Performed By: #### E 2, FSH #### [address] [address] Judicial Registrar: Melvin Santoyo MD #### CBC #### [facility] [address] [place] [address] Dr. [place], [place] [phone] Judicial Registrar: Phillip Camarena MD Creatinine [Mass/Vol] 1.0 mg/dL High 0.5-0.9 [facility] Comment on above: Performed By: #### E 2, FSH #### [facility] [address] [place] [address] Judicial Registrar: Melvin Santoyo MD #### CBC #### [facility] [address] [place] [address] Judicial Registrar: Phillip Camarena MD GFR/1.73 sq M.predicted among non-blacks MDRD (S/P/Bld) [Vol rate/Area] mL/min/{1.73_m2} Normal >60 [facility] Comment on above: Result Comment: These results are not intended for use in patients <18 years of age. eGFR results are calculated without a race factor using the 2020 CKD-EPI equation. Careful clinical correlation is recommended, particularly when comparing to results calculated using previous equations. The CKD-EPI equation is less accurate in patients with extremes of muscle mass, extra-renal metabolism of creatine, excessive creatine ingestion, or following therapy that affects renal tubular secretion. Performed By: #### E 2, FSH #### [facility] [address] [place] [address] Judicial Registrar: Melvin Santoyo MD #### CBC #### [address] [place] [address] Judicial Registrar: Phillip Camarena MD Glucose [Mass/Vol] 153 mg/dL High 70-99 [facility] Comment on above: Performed By: #### E 2, FSH #### [facility] [address] [place] [address] Judicial Registrar: Melvin Santoyo MD #### CBC #### [facility] [address] [place], [place] [phone] Judicial Registrar: Phillip Camarena MD Potassium [Moles/Vol] 4.7 mmol/L Normal 3.7-5.3 [facility] Comment on above: Performed By: #### E 2, FSH #### [facility] [address] [place] [address] Judicial Registrar: Melvin Santoyo MD #### CBC #### [facility] [address] [place], [place] [phone] Judicial Registrar: Phillip Camarena MD Sodium [Moles/Vol] 141 mmol/L Normal 135-144 [facility] Comment on above: Performed By: #### E 2, FSH #### [facility] [address] [place] [address] Judicial Registrar: Melvin Santoyo MD #### CBC #### [facility] [address] [place] [address] Dr. [place], [place] [phone] Judicial Registrar: Phillip Camarena MD Urea nitrogen [Mass/Vol] 13 mg/dL Normal 6-20 [facility] Comment on above: Performed By: #### E 2, FSH #### [facility] [address] [place] [address] Judicial Registrar: Melvin Santoyo MD #### CBC #### [facility] [address] [place] [address] [place], [place] [id number] Judicial Registrar: Phillip Camarena MD Basic Metabolic Panel w/ Ref kartik to MGon 06-11-2023 Anion gap [Moles/Vol] 10 mmol/L 9 - 17 mmol/L [facility] Calcium [Mass/Vol] 9.1 mg/dL 8.6 - 10. 4 mg/dL [facility] Chloride [Moles/Vol] 105 mmol/L 98 - 10 7 mmol/L [facility] CO2 [Moles/Vol] 26 mmol/L 20 - 31 mmol/L [facility] Creatinine [Mass/Vol] 1.0 mg/dL High 0.5 - 0.9 mg/dL [facility] GFR/1.73 sq M.predicted MDRD (S/P/Bld) [Vol rate/Area] - PINF [facility] Comment on above: These results are not intended for use in patients <18 years of age. eGFR results are calculated without a race factor using the 2020 CKD-EPI equation. Careful clinical correlation is recommended, particularly when comparing to results calculated using previous equations. The CKD-EPI equation is less accurate in patients with extremes of muscle mass, extra-renal metabolism of creatine, excessive creatine ingestion, or following therapy that affects renal tubular secretion. Glucose [Mass/Vol] 153 mg/dL High 70 - 99 mg/dL [facility] Interpretation and review of laboratory results Abnormal [facility] Potassium [Moles/Vol] 4.7 mmol/L 3.7 - 5.3 mmol/L [facility] Sodium [Moles/Vol] 141 mmol/L 135 - 144 mmol/L [facility] Urea nitrogen [Mass/Vol] 13 mg/dL 6 - 20 mg/dL [facility] Urea nitrogen/Creatinine [Mass ratio] 13 mg/mg 9 - 20 [facility] Brain Natri. Peptideon 06-11 Natriuretic peptide B (Bld) [Mass/Vol] 74 pg/mL Normal <300 [facility] Comment on above: Result Comment: An age-independent cutoff point of 300 pg/ml has a 98% negative predictive value excluding acute heart failure. Performed By: #### B PAWN SHOP KEEPER #### [facility] [address] [place] [address] [place] [address] Judicial Registrar: Phillip Camarena MD Brain Natriuretic Peptideon 06-11-2023 Natriuretic peptide B (Bld) [Mass/Vol] 74 pg/mL NINF - 300 pg/mL [facility] Comment on above: An age-independent cutoff point of 300 pg/ml has a 98% negative predictive value excluding acute heart failure. [facility] CBC auto differentialon 05-27 Basophils (Bld) [#/Vol] 0.06 10*3/uL [facility] Basophils/100 WBC (Bld) 1 % 0 - 2 % [facility] Eosinophils (Bld) [#/Vol] 0.34 10*3/uL [facility] Eosinophils/100 WBC (Bld) 3 % 1 - 4 % [facility] Erythrocyte distribution width (RBC) [Ratio] 14.0 % 11.8 - 14.4 % [facility] Hematocrit (Bld) [Volume fraction] 37.6 % 36.3 - 47.1 % [facility] Hemoglobin (Bld) [Mass/Vol] 12.0 g/dL 11.9 - 15.1 g/dL [facility] Immature granulocytes (Bld) [#/Vol] 0.12 10*3/uL [facility] Immature granulocytes/100 WBC (Bld) 1 % High 0 [facility] Interpretation and review of laboratory results Abnormal [facility] Lymphocytes/100 WBC (Bld) 20 % Low 24 - 43 % [facility] Lymphocytes/100 WBC (Bld) 2.45 % [facility] MCH (RBC) [Entitic mass] 31.6 pg 25.2 - 33.5 pg [facility] MCHC (RBC) [Mass/Vol] 31.9 g/dL 28.4 - 34.8 g/dL [facility] MCV (RBC) [Entitic vol] 98.9 fL 82.6 - 102.9 fL [facility] Monocytes/100 WBC (Bld) 2 % Low 3 - 12 % [facility] Monocytes/100 WBC (Bld) 0.30 % [facility] Neutrophils/100 WBC (Bld) 73 % High 36 - 65 % [facility] Nucleated RBC/100 WBC (Bld) [Ratio] 0.0 % 0.0 per 100 WBC [facility] Platelet mean volume (Bld) [Entitic vol] 9.4 fL 8.1 - 13.5 fL [facility] Platelets (Bld) [#/Vol] 297 10*3/uL [facility] RBC (Bld) [#/Vol] 3.80 10*6/uL Low 3.95 - 5.1 1 m/uL [facility] Segmented neutrophils/100 WBC (Bld) 9.30 % High [facility] WBC other (Bld) [#/Vol] 12.[address] [facility] CBC with Diffon 06-11-2023 Abs. Basophil 0.06 k/uL Normal 0.00-0.20 [facility] Comment on above: Performed By: #### E 2, FSH #### [place] [id number] [place] [address] Judicial Registrar: Melvin Santoyo MD #### CBC #### [address] [place] [phone] Judicial Registrar: Phillip Camarena MD Abs.Imm.Granulocyte 0.12 k/uL Normal 0.00-0.30 [facility] Comment on above: Performed By: #### E 2, FSH #### [address] [address] Judicial Registrar: Melvin Santoyo MD #### CBC #### [address] [place] [phone] Judicial Registrar: Phillip Camarena MD Abs.Neutrophil (Seg) 9.30 k/uL High 1.50-8.10 [facility] Comment on above: Performed By: #### Bonnie 2, FSH #### [address] [address] Judicial Registrar: Melvin Santoyo MD #### CBC #### [address] [place] 7303087 ( Judicial Registrar: Phillip Camarena MD Basophils/100 WBC (Bld) 1 % Normal 0-2 [facility] Comment on above: Performed By: #### E 2, FSH #### [address] [address] Judicial Registrar: Melvin Santoyo MD #### CBC #### [address] [place] 7303083 Judicial Registrar: Phillip Camarena MD Eosinophils (Bld) [#/Vol] 0.34 10*3/uL Normal 0.00-0.44 [facility] Comment on above: Performed By: #### E 2, FSH #### [place] [place] [address] Judicial Registrar: Melvin Santoyo MD #### CBC #### [facility] [address] [place] [address] Dr. [place], [place] [phone] Judicial Registrar: Phillip Camarena MD Eosinophils/100 WBC (Bld) 3 % Normal 1-4 [facility] Comment on above: Performed By: #### E 2, FSH #### [address] [address] Judicial Registrar: Melvin Santoyo MD #### CBC #### [facility] [address] [place] [address] Dr. [place] [phone] Judicial Registrar: Phillip Camarena MD Erythrocyte distribution width (RBC) [Ratio] 14.0 % Normal 11.8-14.4 [facility] Comment on above: Performed By: #### E 2, FSH #### [address] [address] Judicial Registrar: Melvin Santoyo MD #### CBC #### [facility] [address] [place] [address] Dr. [place] [phone] Judicial Registrar: Phillip Camarena MD Hematocrit (Bld) [Volume fraction] 37.6 % Normal 36.3-47.1 [facility] Comment on above: Performed By: #### E 2, FSH #### [address] [address] Judicial Registrar: Melvin Santoyo MD #### CBC #### [facility] [address] [place] [address] [place] [address] Judicial Registrar: Phillip Camarena MD Hemoglobin (Bld) [Mass/Vol] 12.0 g/dL Normal 11.9-15.1 [facility] Comment on above: Performed By: #### E 2, FSH #### [place] [address] [place] [address] Judicial Registrar: Melvin Santoyo MD #### CBC #### [facility] [address] [place], [place] [phone] Judicial Registrar: Phillip Camarena MD Immature granulocytes/100 WBC (Bld) 1 % High 0 [facility] Comment on above: Performed By: #### E 2, FSH #### [address] [address] Judicial Registrar: Melvin Santoyo MD #### CBC #### [facility] [address] [place], [place] [phone] Judicial Registrar: Phillip Camarena MD Lymphocytes (Bld) [#/Vol] 2.45 10*3/uL Normal 1.10-3.70 [facility] Comment on above: Performed By: #### E 2, FSH #### [address] [address] Judicial Registrar: Melvin Santoyo MD #### CBC #### [facility] [address] [place], [place] [id number] Judicial Registrar: Phillip Camarena MD Lymphocytes/100 WBC (Bld) 20 % Low 24-43 [facility] Comment on above: Performed By: #### E 2, FSH #### [address] [address] Judicial Registrar: Melvin Santoyo MD #### CBC #### [facility] [address] [place] [address] Dr. [place], [place] [phone] Judicial Registrar: Phillip Camarena MD MCH (RBC) [Entitic mass] 31.6 pg Normal 25.2-33.5 [facility] Comment on above: Performed By: #### E 2, FSH #### [address] [address] Judicial Registrar: Melvin Santoyo MD #### CBC #### [address] [place] [address] Judicial Registrar: Phillip Camarena MD MCHC (RBC) [Mass/Vol] 31.9 g/dL Normal 28.4-34.8 [facility] Comment on above: Performed By: #### E 2, FSH #### [address] [address] Judicial Registrar: Melvin Santoyo MD #### CBC #### [address] [place] [address] Judicial Registrar: Phillip Camarena MD MCV (RBC) [Entitic vol] 98.9 fL Normal 82.6-102.9 [facility] Comment on above: Performed By: #### E 2, FSH #### [address] [address] Judicial Registrar: Melvin Santoyo MD #### CBC #### [address] [place] [address] Judicial Registrar: Phillip Camarena MD Monocytes (Bld) [#/Vol] 0.30 10*3/uL Normal 0.10-1.20 [facility] Comment on above: Performed By: #### E 2, FSH #### [address] [address] Judicial Registrar: Melvin Santoyo MD #### CBC #### [facility] [address] [place] [address] [place] [address] Judicial Registrar: Phillip Camarena MD Monocytes/100 WBC (Bld) 2 % Low 3-12 [facility] Comment on above: Performed By: #### E 2, FSH #### [address] [address] Judicial Registrar: Melvin Santoyo MD #### CBC #### [facility] [address] [place], [place] [id number] Judicial Registrar: Phillip Camarena MD Neutrophil (Seg) 73 % High 36-65 [facility] Comment on above: Performed By: #### E 2, FSH #### [address] [place] [address] Judicial Registrar: Melvin Santoyo MD #### CBC #### [facility] [address] [place] [address] Dr. [place], [place] [id number] Judicial Registrar: Phillip Camarena MD NRBC Automated 0.0 per 100 WBC Normal 0.0 [facility] Comment on above: Performed By: #### E 2, FSH #### [address] [address] Judicial Registrar: Melvin Santoyo MD #### CBC #### [address] [place], [place] [id number] Judicial Registrar: Phillip Camarena MD Platelet mean volume (Bld) [Entitic vol] 9.4 fL Normal 8.1-13.5 [facility] Comment on above: Performed By: #### E 2, FSH #### [address] [address] Judicial Registrar: Melvin Santoyo MD #### CBC #### [address] [place], [place] [id number] Judicial Registrar: Phillip Camarena MD Platelets (Bld) [#/Vol] 297 10*3/uL Normal 138-453 [facility] Comment on above: Performed By: #### E 2, FSH #### [address] [address] Judicial Registrar: Melvin Santoyo MD #### CBC #### [address] [place], [place] [id number] Judicial Registrar: Phillip Camarena MD RBC (Bld) [#/Vol] 3.80 10*6/uL Low 3.95-5.11 [facility] Comment on above: Performed By: #### E 2, FSH #### [facility] [address] [place], [place] [id number] Judicial Registrar: Melvin Santoyo MD #### CBC #### [facility] [address] [place] [place], [place] [id number] Judicial Registrar: Phillip Camarena MD WBC (Bld) [#/Vol] 12.6 10*3/uL High 3.5-11.3 [facility] Comment on above: Performed By: #### E 2, FSH #### [address] [place], [place] [id number] Judicial Registrar: Melvin Santoyo MD #### CBC #### [facility] [address] [place] [address] [place], [place] [id number] Judicial Registrar: Phillip Camarena MD CT CERVICAL SPINE WO CONTRAS Ton 06-11-2023 CT CERVICAL SPINE WO CONTRAST EXAMINATION: CT OF THE CERVICAL SPINE WITHOUT CONTRAST 06/10/2023 9:31 pm TECHNIQUE: CT of the cervical spine was performed without the administration of intravenous contrast. Multiplanar reformatted images are provided for review. Automated exposure control, iterative reconstruction, and/or weight based adjustment of the mA/kV was utilized to reduce the radiation dose to as low as reasonably achievable. COMPARISON: None. HISTORY: ORDERING SYSTEM PROVIDED HISTORY: fall, neck pain TECHNOLOGIST PROVIDED HISTORY: fall, neck pain Decision Support Exception - unselect if not a suspected or confirmed emergency medical condition->Emergency Medical Condition (MA) Is the patient ?->No FINDINGS: BONES/ALIGNMENT: There is no acute fracture or traumatic malalignment. 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 SOFT TISSUES: There is no prevertebral soft tissue swelling. IMPRESSION: 1. No acute traumatic abnormality involving the cervical spine. Interpreted by: Niles Barbosa MD Signed by: Niles Barbosa MD 06/10/23 Final result Normal [facility] CT CHEST PULMONARY EMBOLISM W CONTRASTon 06-11-2023 CT CHEST PULMONARY EMBOLISM W CONTRAST EXAMINATION: CTA OF THE CHEST 06/10/2023 10:33 pm TECHNIQUE: CTA of the chest was performed after the administration of intravenous contrast. Multiplanar reformatted images are provided for review. MIP images are provided for review. Automated exposure control, iterative reconstruction, and/or weight based adjustment of the mA/kV was utilized to reduce the radiation dose to as low as reasonably achievable. COMPARISON: Chest x-ray from today. HISTORY: ORDERING SYSTEM PROVIDED HISTORY: Hypoxia / hypotension TECHNOLOGIST PROVIDED HISTORY: Hypoxia / hypotension Decision Support Exception - unselect if not a suspected or confirmed emergency medical condition->Emergency Medical Condition (MA) FINDINGS: Pulmonary Arteries: Pulmonary arteries are adequately opacified for evaluation. No evidence of intraluminal filling defect to suggest pulmonary embolism. Main pulmonary artery is normal in caliber. Mediastinum: No evidence of mediastinal lymphadenopathy. The heart and pericardium demonstrate no acute abnormality. There is no acute abnormality of the thoracic aorta. Calcific coronary artery disease. Lungs/pleura: Mild bibasilar interstitial infiltrates. Upper Abdomen: Limited images of the upper abdomen are unremarkable. Soft Tissues/Bones: No acute bone or soft tissue abnormality. IMPRESSION: Mild nonspecific bibasilar interstitial infiltrates. Coronary artery disease. Interpreted by: Zak Duque MD Signed by: Zak Duque MD 06/10/23 Final result Normal [facility] CT HEAD WO CONTRASTon 2022 CT HEAD WO CONTRAST EXAMINATION: CT OF THE HEAD WITHOUT CONTRAST 06/10/2023 9:30 pm TECHNIQUE: CT of the head was performed without the administration of intravenous contrast. Automated exposure control, iterative reconstruction, and/or weight based adjustment of the mA/kV was utilized to reduce the radiation dose to as low as reasonably achievable. COMPARISON: None. HISTORY: ORDERING SYSTEM PROVIDED HISTORY: Fall, syncope TECHNOLOGIST PROVIDED HISTORY: Fall, syncope Decision Support Exception - unselect if not a suspected or confirmed emergency medical condition->Emergency Medical Condition (MA) Is the patient ?->No FINDINGS: BRAIN/VENTRICLES: There is no acute intracranial hemorrhage, mass effect or midline shift. No abnormal extra-axial fluid collection. The conner-white differentiation is maintained without evidence of an acute infarct. There is no evidence of hydrocephalus. ORBITS: The visualized portion of the orbits demonstrate no acute abnormality. SINUSES: The visualized paranasal sinuses and mastoid air cells demonstrate no acute abnormality. SOFT TISSUES/SKULL: No acute abnormality of the visualized skull or soft tissues. IMPRESSION: No acute intracranial abnormality. Interpreted by: Zak Duque MD Signed by: Zak Duque MD 06/10/23 Final result Normal [facility] EKG 12 Leadon 06-11-2023 Atrial Rate 95 BPM [facility] P [place] 53 degrees [facility] P-R Interval 156 ms [facility] Q-T Interval 358 ms [facility] QRS Duration 88 ms [facility] QTc Calculation (Bazett) 449 ms [facility] R [place] 19 degrees [facility] T [place] 54 degrees [facility] Ventricular Rate 95 BPM [facility] Normal sinus rhythm Normal ECG When compared with ECG of 06-AUG-2022 17:11, No significant change was found Confirmed by Nathan Ardon MD ([id number]) on 06/11/2023 4:31:21 PM [facility] Nathan Ardon MD - 06/11/2023 Normal sinus rhythm Normal ECG When compared with ECG of 06-AUG-2022 17:11, No significant change was found Confirmed by Nathan Ardon MD ([id number]) on 06/11/2023 4:31:21 PM [facility] EKG Rhythm Stripon 3 [facility] Glucose, Whole Bloodon 06-11 Glucose [Mass/Vol] 407 mg/dL High 74 - 100 mg/dL [facility] Interpretation and review of laboratory results Abnormal [facility] Glucose [Mass/Vol] 473 mg/dL High 74 - 100 mg/dL [facility] Interpretation and review of laboratory results Abnormal [facility] Glucose [Mass/Vol] 336 mg/dL High 74 - 100 mg/dL [facility] Interpretation and review of laboratory results Abnormal [facility] Glucose [Mass/Vol] 168 mg/dL High 74 - 100 mg/dL [facility] Interpretation and review of laboratory results Abnormal [facility] Lactate, Sepsison 06-11-2023 Lactic Acid, Sepsis 1.7 mmol/L Normal 0.5-1.9 [facility] Comment on above: Performed By: #### E 2, FSH #### [facility] [address] [place] [address] Judicial Registrar: Melvin Santoyo MD #### CBC #### [facility] [address] [place] [address] Judicial Registrar: Phillip Camarena MD Lactate (BldV) [Moles/Vol] 1.7 mmol/L 0.5 - 1.9 mmol/L [facility] Lactic Acid, Sepsis 1.7 mmol/L Normal 0.5-1.9 [facility] Comment on above: Performed By: #### L ACDS #### [facility] [address] [place] [address] Judicial Registrar: Phillip Camarena MD Lactate (BldV) [Moles/Vol] 1.7 mmol/L 0.5 - 1.9 mmol/L [facility] Procalcitoninon 06-11-2023 Procalcitonin [Mass/Vol] 0.07 ng/mL [facility] - 0.09 ng/mL [facility] Comment on above: Suspected Sepsis: <0.50 ng/mL Low likelihood of sepsis. 0.50-2.00 ng/mL Increased likelihood of sepsis. Antibiotics encouraged. >2.00 ng/mL High risk of sepsis/shock. Antibiotics strongly encouraged. Suspected Lower Resp Tract Infections: <0.24 ng/mL Low likelihood of bacterial infection. >0.24 ng/mL Increased likelihood of bacterial infection. Antibiotics encouraged. With successful antibiotic therapy, PCT levels should decrease rapidly. (Half-life of 24 to 36 hours.) Procalcitonin values from samples collected within the first 6 hours of systemic infection may still be low. Retesting may be indicated. Values from day 1 and day 4 can be entered into the Change in Procalcitonin Calculator (www.gjhqsf-jwy-kfvdndqtba.com) to determine the patient's Mortality Risk Prognosis In healthy neonates, plasma Procalcitonin (PCT) concentrations increase gradually after , reaching peak values at about 24 hours of age then decrease to normal values below 0.5 ng/mL by 48-72 hours of age. [facility] Troponinon 06-11-2023 Troponin, High Sens 26 ng/L High 0-14 [facility] Comment on above: Result Comment: High Sensitivity Troponin values cannot be compared with other Troponin methodologies. Performed By: #### T RAFAL #### [facility] [address] [place], [place] [id number] Judicial Registrar: Phillip Camarena MD Interpretation and review of laboratory results Abnormal [facility] Troponin I.cardiac High sensitivity method [Mass/Vol] 26 ng/L High 0 - 14 ng/L [facility] Comment on above: High Sensitivity Tro ponin values cannot be compared with other Troponin methodologies. [facility] XR CHEST (2 VW)on 06-11-2023 XR CHEST (2 VW) EXAMINATION: TWO XRAY VIEWS OF THE CHEST 06/10/2023 9:33 pm COMPARISON: None. HISTORY: ORDERING SYSTEM PROVIDED HISTORY: Cough x1wk TECHNOLOGIST PROVIDED HISTORY: Cough x1wk FINDINGS: The lungs are without acute focal process. There is no effusion or pneumothorax. The cardiomediastinal silhouette is without acute process. The osseous structures are without acute process. IMPRESSION: No acute process. Interpreted by: Zak Duque MD Signed by: Zak Duque MD 06/10/23 Final result Normal [facility] CBC with Auto Differentialon 06-10-2023 Basophils (Bld) [#/Vol] 0.07 10*3/uL [facility] Basophils/100 WBC (Bld) 1 % 0 - 2 % [facility] Eosinophils (Bld) [#/Vol] 0.40 10*3/uL [facility] Eosinophils/100 WBC (Bld) 5 % High 1 - 4 % [facility] Erythrocyte distribution width (RBC) [Ratio] 14.0 % 11.8 - 14.4 % [facility] Hematocrit (Bld) [Volume fraction] 41.8 % 36.3 - 47.1 % [facility] Hemoglobin (Bld) [Mass/Vol] 13.3 g/dL 11.9 - 15.1 g/dL [facility] Immature granulocytes (Bld) [#/Vol] 0.16 10*3/uL [facility] Immature granulocytes/100 WBC (Bld) 2 % High 0 [facility] Interpretation and review of laboratory results Abnormal [facility] Lymphocytes/100 WBC (Bld) 34 % 24 - 43 % [facility] Lymphocytes/100 WBC (Bld) 2.92 % [facility] MCH (RBC) [Entitic mass] 31.4 pg 25.2 - 33.5 pg [facility] MCHC (RBC) [Mass/Vol] 31.8 g/dL 28.4 - 34.8 g/dL [facility] MCV (RBC) [Entitic vol] 98.6 fL 82.6 - 102.9 fL [facility] Monocytes/100 WBC (Bld) 8 % 3 - 12 % [facility] Monocytes/100 WBC (Bld) 0.67 % [facility] Neutrophils/100 WBC (Bld) 50 % 36 - 65 % [facility] Nucleated RBC/100 WBC (Bld) [Ratio] 0.0 % 0.0 per 100 WBC [facility] Platelet mean volume (Bld) [Entitic vol] 9.1 fL 8.1 - 13.5 fL [facility] Platelets (Bld) [#/Vol] 370 10*3/uL [facility] RBC (Bld) [#/Vol] 4.24 10*6/uL 3.95 - 5.1 1 m/uL [facility] Segmented neutrophils/100 WBC (Bld) 4.33 % [facility] WBC other (Bld) [#/Vol] 8.6 [facility] CBC with Diffon 06-10-2023 Abs. Basophil 0.07 k/uL Normal 0.00-0.20 [facility] Comment on above: Performed By: #### E 2, FSH #### [id number] [place] [address] Judicial Registrar: Melvin Santoyo MD #### CBC #### [address] [place] [phone] Judicial Registrar: Phillip Camarena MD Abs.Imm.Granulocyte 0.16 k/uL Normal 0.00-0.30 [facility] Comment on above: Performed By: #### E 2, FSH #### [address] [address] Judicial Registrar: Melvin Santoyo MD #### CBC #### [address] [place] 7[address]3083 Judicial Registrar: Phillip Camarena MD Abs.Neutrophil (Seg) 4.33 k/uL Normal 1.50-8.10 [facility] Comment on above: Performed By: #### Bonnie 2, FSH #### [address] [address] Judicial Registrar: Melvin Santoyo MD #### CBC #### [address] [place] 7[address]3083 Judicial Registrar: Phillip Camarena MD Basophils/100 WBC (Bld) 1 % Normal 0-2 [facility] Comment on above: Performed By: #### E 2, FSH #### [address] [address] Judicial Registrar: Melvin Santoyo MD #### CBC #### [address] [place] 7303083 Judicial Registrar: Phillip Camarena MD Eosinophils (Bld) [#/Vol] 0.40 10*3/uL Normal 0.00-0.44 [facility] Comment on above: Performed By: #### E 2, FSH #### [address] [place] [address] Judicial Registrar: Melvin Santoyo MD #### CBC #### [facility] [address] [place] [address] Dr. [place] 7[address]3083 Judicial Registrar: Phillip Camarena MD Eosinophils/100 WBC (Bld) 5 % High 1-4 [facility] Comment on above: Performed By: #### E 2, FSH #### [address] [address] Judicial Registrar: Melvin Santoyo MD #### CBC #### [facility] [address] [place] [address] [place]. [place] 7[address]3083 Judicial Registrar: Phillip Camarena MD Erythrocyte distribution width (RBC) [Ratio] 14.0 % Normal 11.8-14.4 [facility] Comment on above: Performed By: #### E 2, FSH #### [address] [address] Judicial Registrar: Melvin Santoyo MD #### CBC #### [address] [place] 7[address]3083 Judicial Registrar: Phillip Camarena MD Hematocrit (Bld) [Volume fraction] 41.8 % Normal 36.3-47.1 [facility] Comment on above: Performed By: #### E 2, FSH #### [address] [address] Judicial Registrar: Melvin Santoyo MD #### CBC #### [facility] [address] [place] [address] [place] [address] Judicial Registrar: Phillip Camarena MD Hemoglobin (Bld) [Mass/Vol] 13.3 g/dL Normal 11.9-15.1 [facility] Comment on above: Performed By: #### E 2, FSH #### [address] [address] Judicial Registrar: Melvin Santoyo MD #### CBC #### [facility] [address] [place], [place] [id number] Judicial Registrar: Phillip Camarena MD Immature granulocytes/100 WBC (Bld) 2 % High 0 [facility] Comment on above: Performed By: #### E 2, FSH #### [address] [address] Judicial Registrar: Melvin Santoyo MD #### CBC #### [facility] [address] [place] [address] [place]. [place] [address]83 Judicial Registrar: Phillip Camarena MD Lymphocytes (Bld) [#/Vol] 2.92 10*3/uL Normal 1.10-3.70 [facility] Comment on above: Performed By: #### E 2, FSH #### [address] [address] Judicial Registrar: Melvin Santoyo MD #### CBC #### [address] [place], [place] [id number] Judicial Registrar: Phillip Camarena MD Lymphocytes/100 WBC (Bld) 34 % Normal 24-43 [facility] Comment on above: Performed By: #### E 2, FSH #### [address] [address] Judicial Registrar: Melvin Santoyo MD #### CBC #### [facility] [address] [place] [address] Dr. [place], [place] [id number] Judicial Registrar: Phillip Camarena MD MCH (RBC) [Entitic mass] 31.4 pg Normal 25.2-33.5 [facility] Comment on above: Performed By: #### E 2, FSH #### [address] [place] [address] Judicial Registrar: Melvin Santoyo MD #### CBC #### [address] [place], [place] [id number] Judicial Registrar: Phillip Camarena MD MCHC (RBC) [Mass/Vol] 31.8 g/dL Normal 28.4-34.8 [facility] Comment on above: Performed By: #### E 2, FSH #### [address] [address] Judicial Registrar: Melvin Santoyo MD #### CBC #### [address] [place] [address] Judicial Registrar: Phillip Camarena MD MCV (RBC) [Entitic vol] 98.6 fL Normal 82.6-102.9 [facility] Comment on above: Performed By: #### E 2, FSH #### [address] [address] Judicial Registrar: Melvin Santoyo MD #### CBC #### [address] [place] [address] Judicial Registrar: Phillip Camarena MD Monocytes (Bld) [#/Vol] 0.67 10*3/uL Normal 0.10-1.20 [facility] Comment on above: Performed By: #### E 2, FSH #### [address] [address] Judicial Registrar: Melvin Santoyo MD #### CBC #### [facility] [address] [place] [address] [place] [address] Judicial Registrar: Phillip Camarena MD Monocytes/100 WBC (Bld) 8 % Normal 3-12 [facility] Comment on above: Performed By: #### E 2, FSH #### [address] [address] Judicial Registrar: Melvin Santoyo MD #### CBC #### [facility] [address] [place], [place] 247[address]83 Judicial Registrar: Pihllip Camarena MD Neutrophil (Seg) 50 % Normal 36-65 [facility] Comment on above: Performed By: #### E 2, FSH #### [address] [place] [address] Judicial Registrar: Melvin Santoyo MD #### CBC #### [facility] [address] [place] [address] Dr. [place], [place] [id number] Judicial Registrar: Phillip Camarena MD NRBC Automated 0.0 per 100 WBC Normal 0.0 [facility] Comment on above: Performed By: #### E 2, FSH #### [address] [address] Judicial Registrar: Melvin Santoyo MD #### CBC #### [address] [place], [place] 6772083 Judicial Registrar: Phillip Camraena MD Platelet mean volume (Bld) [Entitic vol] 9.1 fL Normal 8.1-13.5 [facility] Comment on above: Performed By: #### E 2, FSH #### [address] [address] Judicial Registrar: Melvin Santoyo MD #### CBC #### [address] [place], [place] [id number] Judicial Registrar: Phillip Camarena MD Platelets (Bld) [#/Vol] 370 10*3/uL Normal 138-453 [facility] Comment on above: Performed By: #### E 2, FSH #### [address] [address] Judicial Registrar: Melvin Santoyo MD #### CBC #### [facility] [address] [place] [address] [place] [address] Judicial Registrar: Phillip Camarena MD RBC (Bld) [#/Vol] 4.24 10*6/uL Normal 3.95-5.11 [facility] Comment on above: Performed By: #### E 2, FSH #### [facility] [address] [place], [place] [address]649[address] Judicial Registrar: Melvin Santoyo MD #### CBC #### [facility] [address] [place] [address] Dr. [place], [place] [id number] Judicial Registrar: Phillip Camarena MD WBC (Bld) [#/Vol] 8.6 10*3/uL Normal 3.5-11.3 [facility] Comment on above: Performed By: #### E 2, FSH #### [address] [place], [place] 949[address]08 Judicial Registrar: Melvin Santoyo MD #### CBC #### [address] [place] [address] Judicial Registrar: Phillip Camarena MD [facility] 06-10-2023 Albumin [Mass/Vol] 4.7 g/dL 3.5 - 5.2 g/dL [facility] Albumin/Globulin [Mass ratio] 1.6 {ratio} 1.0 - 2.5 [facility] ALP [Catalytic activity/Vol] 71 U/L 35 - 104 U/L [facility] ALT [Catalytic activity/Vol] 33 U/L 5 - 33 U/L [facility] Anion gap [Moles/Vol] 10 mmol/L 9 - 17 mmol/L [facility] AST [Catalytic activity/Vol] 33 U/L High NINF - 32 U/L [facility] Bilirubin [Mass/Vol] 0.2 mg/dL Low 0.3 - 1 .2 mg/dL [facility] Calcium [Mass/Vol] 10.2 mg/dL 8.6 - 10. 4 mg/dL [facility] Chloride [Moles/Vol] 98 mmol/L 98 - 10 7 mmol/L [facility] CO2 [Moles/Vol] 31 mmol/L 20 - 31 mmol/L [facility] Creatinine [Mass/Vol] 1.1 mg/dL High 0.5 - 0.9 mg/dL [facility] GFR/1.73 sq M.predicted MDRD (S/P/Bld) [Vol rate/Area] - PINF [facility] Comment on above: These results are not intended for use in patients <18 years of age. eGFR results are calculated without a race factor using the 2020 CKD-EPI equation. Careful clinical correlation is recommended, particularly when comparing to results calculated using previous equations. The CKD-EPI equation is less accurate in patients with extremes of muscle mass, extra-renal metabolism of creatine, excessive creatine ingestion, or following therapy that affects renal tubular secretion. Glucose [Mass/Vol] 109 mg/dL High 70 - 99 mg/dL [facility] Interpretation and review of laboratory results Abnormal [facility] Potassium [Moles/Vol] 4.2 mmol/L 3.7 - 5.3 mmol/L [facility] Protein [Mass/Vol] 7.7 g/dL 6.4 - 8.3 g/dL [facility] Sodium [Moles/Vol] 139 mmol/L 135 - 144 mmol/L [facility] Urea nitrogen [Mass/Vol] 15 mg/dL 6 - 20 mg/dL [facility] Urea nitrogen/Creatinine [Mass ratio] 14 mg/mg 9 - 20 [facility] COVID-19, Rapidon 06-10-2023 SARS-CoV-2 (COVID-19) RdRp gene ASHLEY+probe Ql (Resp) Not detected Not Detected [facility] Comment on above: Rapid NAAT: The specimen is NEGATIVE for SARS-CoV-2, the novel coronavirus associated with COVID-19. The ID NOW COVID-19 assay is designed to detect the virus that causes COVID-19 in patients with signs and symptoms of infection who are suspected of COVID-19. An individual without symptoms of COVID-19 and who is not shedding SARS-CoV-2 virus would expect to have a negative (not detected) result in this assay. Negative results should be treated as presumptive and, if inconsistent with clinical signs and symptoms or necessary for patient management, should be tested with an alternative molecular assay. Negative results do not preclude SARS-CoV-2 infection and should not be used as the sole basis for patient management decisions. Fact sheet for Healthcare Providers: https://www.fda.gov/media/487719/download Fact sheet for Patients: https://www.fda.gov/media/920395/download Methodology: Isothermal Nucleic Acid Amplification Specimen Description .NASOPHARYNGEAL SWAB [facility] CT CERVICAL SPINE WO LOKESH Ton 06-10-2023 1. No acute traumati c abnormality involving the cervical spine. [facility] EXAMINATION: CT OF THE CERVICAL SPINE WITHOUT CONTRAST 06/10/2023 9:31 pm TECHNIQUE: CT of the cervical spine was performed without the administration of intravenous contrast. Multiplanar reformatted images are provided for review. Automated exposure control, iterative reconstruction, and/or weight based adjustment of the mA/kV was utilized to reduce the radiation dose to as low as reasonably achievable. COMPARISON: None. HISTORY: ORDERING SYSTEM PROVIDED HISTORY: fall, neck pain TECHNOLOGIST PROVIDED HISTORY: fall, neck pain Decision Support Exception - unselect if not a suspected or confirmed emergency medical condition->Emergency Medical Condition (MA) Is the patient ?->No FINDINGS: BONES/ALIGNMENT: There is no acute fracture or traumatic malalignment. 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 SOFT TISSUES: There is no prevertebral soft tissue swelling. [facility] Niles Barbosa MD - 06/10/2023 EXAMINATION: CT OF THE CERVICAL SPINE WITHOUT CONTRAST 06/10/2023 9:31 pm TECHNIQUE: CT of the cervical spine was performed without the administration of intravenous contrast. Multiplanar reformatted images are provided for review. Automated exposure control, iterative reconstruction, and/or weight based adjustment of the mA/kV was utilized to reduce the radiation dose to as low as reasonably achievable. COMPARISON: None. HISTORY: ORDERING SYSTEM PROVIDED HISTORY: fall, neck pain TECHNOLOGIST PROVIDED HISTORY: fall, neck pain Decision Support Exception - unselect if not a suspected or confirmed emergency medical condition->Emergency Medical Condition (MA) Is the patient ?->No FINDINGS: BONES/ALIGNMENT: There is no acute fracture or traumatic malalignment. 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 SOFT TISSUES: There is no prevertebral soft tissue swelling. IMPRESSION: 1. No acute traumatic abnormality involving the cervical spine. [facility] Radiology Study observation (narrative) [facility] CT CERVICAL SPINE WO CONTRAS TOrdered By: Niles Barbosa on 06-10-2023 [facility] Work Phone: CT CHEST PULMONARY EMBOLISM W CONTRASTon 06-10-2023 Mild nonspecific bibasilar interstitial infiltrates. Coronary artery disease. [facility] EXAMINATION: CTA OF THE CHEST 06/10/2023 10:33 pm TECHNIQUE: CTA of the chest was performed after the administration of intravenous contrast. Multiplanar reformatted images are provided for review. MIP images are provided for review. Automated exposure control, iterative reconstruction, and/or weight based adjustment of the mA/kV was utilized to reduce the radiation dose to as low as reasonably achievable. COMPARISON: Chest x-ray from today. HISTORY: ORDERING SYSTEM PROVIDED HISTORY: Hypoxia / hypotension TECHNOLOGIST PROVIDED HISTORY: Hypoxia / hypotension Decision Support Exception - unselect if not a suspected or confirmed emergency medical condition->Emergency Medical Condition (MA) FINDINGS: Pulmonary Arteries: Pulmonary arteries are adequately opacified for evaluation. No evidence of intraluminal filling defect to suggest pulmonary embolism. Main pulmonary artery is normal in caliber. Mediastinum: No evidence of mediastinal lymphadenopathy. The heart and pericardium demonstrate no acute abnormality. There is no acute abnormality of the thoracic aorta. Calcific coronary artery disease. Lungs/pleura: Mild bibasilar interstitial infiltrates. Upper Abdomen: Limited images of the upper abdomen are unremarkable. Soft Tissues/Bones: No acute bone or soft tissue abnormality. [facility] Zak Duque MD - 06/10/2023 EXAMINATION: CTA OF THE CHEST 06/10/2023 10:33 pm TECHNIQUE: CTA of the chest was performed after the administration of intravenous contrast. Multiplanar reformatted images are provided for review. MIP images are provided for review. Automated exposure control, iterative reconstruction, and/or weight based adjustment of the mA/kV was utilized to reduce the radiation dose to as low as reasonably achievable. COMPARISON: Chest x-ray from today. HISTORY: ORDERING SYSTEM PROVIDED HISTORY: Hypoxia / hypotension TECHNOLOGIST PROVIDED HISTORY: Hypoxia / hypotension Decision Support Exception - unselect if not a suspected or confirmed emergency medical condition->Emergency Medical Condition (MA) FINDINGS: Pulmonary Arteries: Pulmonary arteries are adequately opacified for evaluation. No evidence of intraluminal filling defect to suggest pulmonary embolism. Main pulmonary artery is normal in caliber. Mediastinum: No evidence of mediastinal lymphadenopathy. The heart and pericardium demonstrate no acute abnormality. There is no acute abnormality of the thoracic aorta. Calcific coronary artery disease. Lungs/pleura: Mild bibasilar interstitial infiltrates. Upper Abdomen: Limited images of the upper abdomen are unremarkable. Soft Tissues/Bones: No acute bone or soft tissue abnormality. IMPRESSION: Mild nonspecific bibasilar interstitial infiltrates. Coronary artery disease. [facility] Radiology Study observation (narrative) [facility] CT Head WO Contraston 2022 No acute intracrania l abnormality. [facility] EXAMINATION: CT OF THE HEAD WITHOUT CONTRAST 06/10/2023 9:30 pm TECHNIQUE: CT of the head was performed without the administration of intravenous contrast. Automated exposure control, iterative reconstruction, and/or weight based adjustment of the mA/kV was utilized to reduce the radiation dose to as low as reasonably achievable. COMPARISON: None. HISTORY: ORDERING SYSTEM PROVIDED HISTORY: Fall, syncope TECHNOLOGIST PROVIDED HISTORY: Fall, syncope Decision Support Exception - unselect if not a suspected or confirmed emergency medical condition->Emergency Medical Condition (MA) Is the patient ?->No FINDINGS: BRAIN/VENTRICLES: There is no acute intracranial hemorrhage, mass effect or midline shift. No abnormal extra-axial fluid collection. The conner-white differentiation is maintained without evidence of an acute infarct. There is no evidence of hydrocephalus. ORBITS: The visualized portion of the orbits demonstrate no acute abnormality. SINUSES: The visualized paranasal sinuses and mastoid air cells demonstrate no acute abnormality. SOFT TISSUES/SKULL: No acute abnormality of the visualized skull or soft tissues. [facility] Zak Duque MD - 06/10/2023 EXAMINATION: CT OF THE HEAD WITHOUT CONTRAST 06/10/2023 9:30 pm TECHNIQUE: CT of the head was performed without the administration of intravenous contrast. Automated exposure control, iterative reconstruction, and/or weight based adjustment of the mA/kV was utilized to reduce the radiation dose to as low as reasonably achievable. COMPARISON: None. HISTORY: ORDERING SYSTEM PROVIDED HISTORY: Fall, syncope TECHNOLOGIST PROVIDED HISTORY: Fall, syncope Decision Support Exception - unselect if not a suspected or confirmed emergency medical condition->Emergency Medical Condition (MA) Is the patient ?->No FINDINGS: BRAIN/VENTRICLES: There is no acute intracranial hemorrhage, mass effect or midline shift. No abnormal extra-axial fluid collection. The conner-white differentiation is maintained without evidence of an acute infarct. There is no evidence of hydrocephalus. ORBITS: The visualized portion of the orbits demonstrate no acute abnormality. SINUSES: The visualized paranasal sinuses and mastoid air cells demonstrate no acute abnormality. SOFT TISSUES/SKULL: No acute abnormality of the visualized skull or soft tissues. IMPRESSION: No acute intracranial abnormality. [facility] Radiology Study observation (narrative) [facility] CT Head WO ContrastOrdered B y: Zak Duque on 06-10-2023 [facility] Work Phone: Comp Metabolic Profon 2022 Albumin [Mass/Vol] 4.7 g/dL Normal 3.5-5.2 [facility] Comment on above: Performed By: #### E 2, FSH #### [facility] [address] [place], [place] [id number] Judicial Registrar: Melvin Santoyo MD #### CBC #### [facility] [address] [place] [address] Judicial Registrar: Phillip Camarena MD Albumin/Glob Ratio 1.6 Normal 1.0-2.5 [facility] Comment on above: Performed By: #### E 2, FSH #### [facility] [address] [place] [address] Judicial Registrar: Melvin Santoyo MD #### CBC #### [facility] [address] [place] [address] Judicial Registrar: Phillip Camarena MD Alkaline Phos 71 U/L Normal 35-104 [facility] Comment on above: Performed By: #### E 2, FSH #### [facility] [address] [place] [address] Judicial Registrar: Melvin Santoyo MD #### CBC #### [facility] [address] [place] [address] Judicial Registrar: Phillip Camarena MD ALT [Catalytic activity/Vol] 33 U/L Normal 5-33 [facility] Comment on above: Performed By: #### E 2, FSH #### [address] [address] Judicial Registrar: Melvin Santoyo MD #### CBC #### [facility] [address] [place] [address] [address] [place], [place] [id number] Judicial Registrar: Phillip Camarena MD Anion gap [Moles/Vol] 10 mmol/L Normal 9-17 [facility] Comment on above: Performed By: #### E 2, FSH #### [address] [address] Judicial Registrar: Melvin Santoyo MD #### CBC #### [facility] [address] [place] [address] [place] [address] Judicial Registrar: Phillip Camarena MD AST [Catalytic activity/Vol] 33 U/L High <32 [facility] Comment on above: Performed By: #### E 2, FSH #### [address] [address] Judicial Registrar: Melvin Santoyo MD #### CBC #### [facility] [address] [place] [address] [address] [place], [place] [id number] Judicial Registrar: Phillip Camarena MD Bilirubin [Mass/Vol] 0.2 mg/dL Low 0.3-1.2 [facility] Comment on above: Performed By: #### E 2, FSH #### [address] [address] Judicial Registrar: Melvin Santoyo MD #### CBC #### [facility] [address] [place] [id number] Judicial Registrar: Phillip Camarena MD BUN/CRE Ratio 14 Normal 9-20 [facility] Comment on above: Performed By: #### E 2, FSH #### [address] [address] Judicial Registrar: Melvin Santoyo MD #### CBC #### [facility] [address] [place] [address] [address] [place], [place] [id number] Judicial Registrar: Phillip Camarena MD Calcium [Mass/Vol] 10.2 mg/dL Normal 8.6-10.4 [facility] Comment on above: Performed By: #### E 2, FSH #### [address] [address] Judicial Registrar: Melvin Santoyo MD #### CBC #### [address] [place], [place] [id number] Judicial Registrar: Phillip Camarena MD Chloride [Moles/Vol] 98 mmol/L Normal 98-107 [facility] Comment on above: Performed By: #### E 2, FSH #### [address] [address] Judicial Registrar: Melvin Santoyo MD #### CBC #### [address] [place] [id number] Judicial Registrar: Phillip Camarena MD CO2 [Moles/Vol] 31 mmol/L Normal 20-[address] [facility] Comment on above: Performed By: #### E 2, FSH #### [address] [address] Judicial Registrar: Melvin Santoyo MD #### CBC #### [address] [place], [place] [id number] Judicial Registrar: Phillip Camarena MD Creatinine [Mass/Vol] 1.1 mg/dL High 0.5-0.9 [facility] Comment on above: Performed By: #### E 2, FSH #### [address] [place] [address] Judicial Registrar: Melvin Santoyo MD #### CBC #### [facility] [address] [place] [address] [address] [place], [place] [phone] Judicial Registrar: Phillip Camarena MD GFR/1.73 sq M.predicted among non-blacks MDRD (S/P/Bld) [Vol rate/Area] mL/min/{1.73_m2} Normal >60 [facility] Comment on above: Result Comment: These results are not intended for use in patients <18 years of age. eGFR results are calculated without a race factor using the 2020 CKD-EPI equation. Careful clinical correlation is recommended, particularly when comparing to results calculated using previous equations. The CKD-EPI equation is less accurate in patients with extremes of muscle mass, extra-renal metabolism of creatine, excessive creatine ingestion, or following therapy that affects renal tubular secretion. Performed By: #### E 2, FSH #### [address] [place] [address] Judicial Registrar: Melvin Santoyo MD #### CBC #### [address] [place], [place] [phone] Judicial Registrar: Phillip Camarena MD Glucose [Mass/Vol] 109 mg/dL High 70-99 [facility] Comment on above: Performed By: #### E 2, FSH #### [address] [place] [address] Judicial Registrar: Melvin Santoyo MD #### CBC #### [address] [place], [place] [phone] Judicial Registrar: Phillip Camarena MD Potassium [Moles/Vol] 4.2 mmol/L Normal 3.7-5.3 [facility] Comment on above: Performed By: #### E 2, FSH #### [facility] [address] [place] [address] Judicial Registrar: Melvin Santoyo MD #### CBC #### [facility] [address] [place] [address] [address] [place], [place] [phone] Judicial Registrar: Phillip Camarena MD Protein [Mass/Vol] 7.7 g/dL Normal 6.4-8.3 [facility] Comment on above: Performed By: #### E 2, FSH #### [address] [address] Judicial Registrar: Melvin Santoyo MD #### CBC #### [facility] [address] [place] [address] Dr[address] [place], [place] [phone] Judicial Registrar: Phillip Camarena MD Sodium [Moles/Vol] 139 mmol/L Normal 135-144 [facility] Comment on above: Performed By: #### E 2, FSH #### [address] [address] Judicial Registrar: Melvin Santoyo MD #### CBC #### [facility] [address] [place] [address] [address] [place], [place] [phone] Judicial Registrar: Phillip Camarena MD Urea nitrogen [Mass/Vol] 15 mg/dL Normal 6-20 [facility] Comment on above: Performed By: #### E 2, FSH #### [address] [address] Judicial Registrar: Melvin Santoyo MD #### CBC #### [facility] [address] [place] [address] [address] [place], [place] [phone] Judicial Registrar: Phillip Camarena MD Magnesiumon 06-10-2023 Magnesium [Mass/Vol] 2.0 mg/dL Normal 1.6-2.6 [facility] Comment on above: Performed By: #### E 2, FSH #### [facility] [address] [place] [address] Judicial Registrar: Melvin Santoyo MD #### CBC #### [facility] [address] [place] [address] Judicial Registrar: Phillip Camarena MD Magnesium [Mass/Vol] 2.0 mg/dL 1.6 - 2 .6 mg/dL [facility] No Panel Informationon 06-10 [facility] [id number] 06-10-2023 SARS-CoV-2 (COVID-19) RNA ASHLEY+probe Ql (Unsp spec) Not detected Normal [facility] Comment on above: Result Comment: Rapid NAAT: The specimen is NEGATIVE for SARS-CoV-2, the novel coronavirus associated with COVID-19. The ID NOW COVID-19 assay is designed to detect the virus that causes COVID-19 in patients with signs and symptoms of infection who are suspected of COVID-19. An individual without symptoms of COVID-19 and who is not shedding SARS-CoV-2 virus would expect to have a negative (not detected) result in this assay. Negative results should be treated as presumptive and, if inconsistent with clinical signs and symptoms or necessary for patient management, should be tested with an alternative molecular assay. Negative results do not preclude SARS-CoV-2 infection and should not be used as the sole basis for patient management decisions. Fact sheet for Healthcare Providers: https://www.fda.gov/media/194049/download Fact sheet for Patients: https://www.fda.gov/media/098074/download Methodology: Isothermal Nucleic Acid Amplification Performed By: #### C OVRB #### [facility] [address] [place] [address] Judicial Registrar: Phillip Camarena MD Troponinon 06-10-2023 Troponin, High Sens 27 ng/L High 0-14 [facility] Comment on above: Result Comment: High Sensitivity Troponin values cannot be compared with other Troponin methodologies. Performed By: #### E 2, FSH #### [facility] [address] [place], [place] [phone] Judicial Registrar: Melvin Santoyo MD #### CBC #### [facility] [address] [place] [address] Judicial Registrar: Phillip Camarena MD Interpretation and review of laboratory results Abnormal [facility] Troponin I.cardiac High sensitivity method [Mass/Vol] 27 ng/L High 0 - 14 ng/L [facility] Comment on above: High Sensitivity Tro ponin values cannot be compared with other Troponin methodologies. [facility] XR CHEST (2 VW)on 06-10-2023 No acute process. [facility] EXAMINATION: TWO XRAY VIEWS OF THE CHEST 06/10/2023 9:33 pm COMPARISON: None. HISTORY: ORDERING SYSTEM PROVIDED HISTORY: Cough x1wk TECHNOLOGIST PROVIDED HISTORY: Cough x1wk FINDINGS: The lungs are without acute focal process. There is no effusion or pneumothorax. The cardiomediastinal silhouette is without acute process. The osseous structures are without acute process. [facility] Zak Duque MD - 06/10/2023 EXAMINATION: TWO XRAY VIEWS OF THE CHEST 06/10/2023 9:33 pm COMPARISON: None. HISTORY: ORDERING SYSTEM PROVIDED HISTORY: Cough x1wk TECHNOLOGIST PROVIDED HISTORY: Cough x1wk FINDINGS: The lungs are without acute focal process. There is no effusion or pneumothorax. The cardiomediastinal silhouette is without acute process. The osseous structures are without acute process. IMPRESSION: No acute process. [facility] Radiology Study observation (narrative) [facility] SSAon 03-29-2023 SSA <0.3 Normal <7.0 [facility] Comment on above: Result Comment: Reference Range: <7.0 Negative 7.0-10.0 Equivocal >10.0 Positive Performed By: #### E 2, FSH #### [facility] [address] [place], [place] [id number] Judicial Registrar: Melvin Santoyo MD #### CBC #### [facility] [address] [place] [address] Judicial Registrar: Phillip Camarena MD SSBon 03-29-2023 SSB <0.3 Normal <7.0 [facility] Comment on above: Result Comment: Reference Range: <7.0 Negative 7.0-10.0 Equivocal >10.0 Positive Performed By: #### E 2, FSH #### [facility] [address] [place], [place] [id number] Judicial Registrar: Melvin Santoyo MD #### CBC #### [facility] [address] [place] [address] Judicial Registrar: Phillip Camarena MD POINT OF CARE GLUCOSEon 01-24 Glucose [Mass/Vol] 136 mg/dL Critically high 74-106 [facility] Comment on above: Performed By: #### P OCGLUC #### [facility] [address] [address] [address] Chidi Reyes POINT OF CARE GLUCOSEon 12-25 Glucose [Mass/Vol] 129 mg/dL Critically high 74-106 [facility] Comment on above: Performed By: #### P OCGLUC #### [facility] [address] [address] [address] Chidi Reyes MRI THORACIC SPINE WO CONTRA STon 12-28-2022 MRI THORACIC SPINE WO CONTRAST EXAMINATION: MRI OF THE THORACIC SPINE WITHOUT CONTRAST 12/28/2022 2:19 pm TECHNIQUE: Multiplanar multisequence MRI of the thoracic spine was performed without the administration of intravenous contrast. COMPARISON: Thoracic spine radiographs done October 12, 2017. HISTORY: ORDERING SYSTEM PROVIDED HISTORY: Thoracic neuritis FINDINGS: BONES/ALIGNMENT: There is normal alignment of the spine. The vertebral body heights are maintained. The bone marrow signal appears unremarkable. SPINAL CORD: No abnormal cord signal is seen. SOFT TISSUES: No paraspinal mass identified. DEGENERATIVE CHANGES: No significant spinal canal stenosis or neural foraminal narrowing of the thoracic spine. IMPRESSION: No acute abnormality in the thoracic spine. No significant spinal canal or neural foraminal narrowing. Interpreted by: Shabbir Weaver DO Signed by: Shabbir Weaver DO 12/28/22 Final result [facility] No acute abnormality in the thoracic spine. No significant spinal canal or neural foraminal narrowing. [facility] EXAMINATION: MRI OF THE THORACIC SPINE WITHOUT CONTRAST 12/28/2022 2:19 pm TECHNIQUE: Multiplanar multisequence MRI of the thoracic spine was performed without the administration of intravenous contrast. COMPARISON: Thoracic spine radiographs done October 12, 2017. HISTORY: ORDERING SYSTEM PROVIDED HISTORY: Thoracic neuritis FINDINGS: BONES/ALIGNMENT: There is normal alignment of the spine. The vertebral body heights are maintained. The bone marrow signal appears unremarkable. SPINAL CORD: No abnormal cord signal is seen. SOFT TISSUES: No paraspinal mass identified. DEGENERATIVE CHANGES: No significant spinal canal stenosis or neural foraminal narrowing of the thoracic spine. [facility] Owen, DO Shabbir - 12/28/2022 EXAMINATION: MRI OF THE THORACIC SPINE WITHOUT CONTRAST 12/28/2022 2:19 pm TECHNIQUE: Multiplanar multisequence MRI of the thoracic spine was performed without the administration of intravenous contrast. COMPARISON: Thoracic spine radiographs done October 12, 2017. HISTORY: ORDERING SYSTEM PROVIDED HISTORY: Thoracic neuritis FINDINGS: BONES/ALIGNMENT: There is normal alignment of the spine. The vertebral body heights are maintained. The bone marrow signal appears unremarkable. SPINAL CORD: No abnormal cord signal is seen. SOFT TISSUES: No paraspinal mass identified. DEGENERATIVE CHANGES: No significant spinal canal stenosis or neural foraminal narrowing of the thoracic spine. IMPRESSION: No acute abnormality in the thoracic spine. No significant spinal canal or neural foraminal narrowing. [employer] Phone: Radiology Study observation (narrative) [employer] Phone: MRI THORACIC SPINE WO CONTRA STOrdered By: Shabbir Weaver on 12-28-2022 [employer] Phone: Colonoscopy studyon 12-09-19 23 No dictation [employer] Phone: Colonoscopy studyOrdered By: Roberto LiveData on 12-08-2022 [employer] Phone: Glucose, Whole Bloodon 12-08 Glucose [Mass/Vol] 117 mg/dL High 74 - 100 mg/dL [facility] Interpretation and review of laboratory results Abnormal [facility] Surgical Pathologyon 023 Surgical Pathology (NOTE) -- Diagnosis -- RECTUM, BIOPSIES: - HYPERPLASTIC POLYPS. Ochoa Castaneda M.D. Electronically Signed Out 12/10/2022 Clinical Information Pre-op Diagnosis: SCREENING Operative Findings: RECTAL POLYPS Operation Performed: COLONOSCOPY, POLYPECTOMY SNARE/COLD BIOPSY tm Source of Specimen A: RECTAL POLYPS Gross Description RISA WARNER RECTAL POLYPS Multiple morales fragments ranging from 0.2 to 0.5 cm and 1.9 x 0.7 x 0.3 cm in aggregate. Entirely 1 cs. mm cd Microscopic Description Microscopic examination performed. SURGICAL PATHOLOGY CONSULTATION Patient Name: RISA WARNER [facility] Rec: [id number] Path Number: [id number] [facility] ANATOMIC PATHOLOGY [address] [place] [address]. [place], [place] [address] Normal [facility] Comment on above: Performed By: #### B PAWN SHOP KEEPER #### [facility] [address] [place] [address] [place] [address] Judicial Registrar: Phillip Camarena MD XR TSPINE 2 VIEWSon 12-02-19 23 XR TSPINE 2 VIEWS EXAMINATION: XR TSPI NE 2 VIEWS, XR LSPINE 2_3 VIEWS HISTORY: Thoracic neuritis , back pain COMPARISON: No relevant comparison available. FINDINGS: BONES: Normal alignment of the thoracic and lumbar vertebral bodies with no acute fracture or spondylolisthesis. Mild degenerative spondylosis and facet osteoarthropathy. DISC SPACES: Normal. No significant disc height narrowing, subluxation, or endplate abnormality. PARASPINOUS: Negative. No paraspinous abnormality is seen. OTHER: BB markers seen best on the lateral lumbar spine x-ray indicate the T12 and L1 levels IMPRESSION: Mild degenerative changes Localization of the T12 and L1 vertebral bodies Electronically authenticated by: PHILLIP CAMACHO Date: 2022-12-01 09:45 Normal [facility] MRI LUMBAR SPINE WO CONTRAST on 11-17-2022 MRI LUMBAR SPINE WO CONTRAST EXAMINATION: MRI OF THE LUMBAR SPINE WITHOUT CONTRAST, 11/17/2022 1:48 pm TECHNIQUE: Multiplanar multisequence MRI of the lumbar spine was performed without the administration of intravenous contrast. COMPARISON: Lumbar spine myelogram performed 01/20/2021. HISTORY: ORDERING SYSTEM PROVIDED HISTORY: Lumbar radiculitis FINDINGS: BONES/ALIGNMENT: The vertebral body heights are maintained. There is age-appropriate bone marrow signal. The disc spaces are maintained. There is no disc space narrowing. There is no spondylolisthesis. SPINAL CORD: The conus is normal in caliber and signal and terminates at L1. The cauda equina is unremarkable. SOFT TISSUES: There is a small postoperative fluid collection in the subcutaneous fat at the site of prior spinal cord stimulator lead. The visualized abdominal structures are unremarkable. L1-L2: There is no significant disc herniation, spinal canal stenosis or neural foraminal narrowing. L2-L3: There is no significant disc herniation, spinal canal stenosis or neural foraminal narrowing. L3-L4: There is a circumferential disc bulge. There is no canal stenosis or foraminal narrowing. L4-L5: There is a circumferential disc bulge. There is no canal stenosis or foraminal narrowing. L5-S1: There is a circumferential disc bulge. There is no canal stenosis or foraminal narrowing. IMPRESSION: Mild degenerative change without canal stenosis or foraminal narrowing. RECOMMENDATIONS: Unavailable Interpreted by: Vern Olivo MD Signed by: Vern Olivo MD 11/17/22 Final result Normal [facility] Mild degenerative change without canal stenosis or foraminal narrowing. RECOMMENDATIONS: Unavailable [facility] EXAMINATION: MRI OF THE LUMBAR SPINE WITHOUT CONTRAST, 11/17/2022 1:48 pm TECHNIQUE: Multiplanar multisequence MRI of the lumbar spine was performed without the administration of intravenous contrast. COMPARISON: Lumbar spine myelogram performed 01/20/2021. HISTORY: ORDERING SYSTEM PROVIDED HISTORY: Lumbar radiculitis FINDINGS: BONES/ALIGNMENT: The vertebral body heights are maintained. There is age-appropriate bone marrow signal. The disc spaces are maintained. There is no disc space narrowing. There is no spondylolisthesis. SPINAL CORD: The conus is normal in caliber and signal and terminates at L1. The cauda equina is unremarkable. SOFT TISSUES: There is a small postoperative fluid collection in the subcutaneous fat at the site of prior spinal cord stimulator lead. The visualized abdominal structures are unremarkable. L1-L2: There is no significant disc herniation, spinal canal stenosis or neural foraminal narrowing. L2-L3: There is no significant disc herniation, spinal canal stenosis or neural foraminal narrowing. L3-L4: There is a circumferential disc bulge. There is no canal stenosis or foraminal narrowing. L4-L5: There is a circumferential disc bulge. There is no canal stenosis or foraminal narrowing. L5-S1: There is a circumferential disc bulge. There is no canal stenosis or foraminal narrowing. [facility] Vern Choi MD - 11/17/2022 EXAMINATION: MRI OF THE LUMBAR SPINE WITHOUT CONTRAST, 11/17/2022 1:48 pm TECHNIQUE: Multiplanar multisequence MRI of the lumbar spine was performed without the administration of intravenous contrast. COMPARISON: Lumbar spine myelogram performed 01/20/2021. HISTORY: ORDERING SYSTEM PROVIDED HISTORY: Lumbar radiculitis FINDINGS: BONES/ALIGNMENT: The vertebral body heights are maintained. There is age-appropriate bone marrow signal. The disc spaces are maintained. There is no disc space narrowing. There is no spondylolisthesis. SPINAL CORD: The conus is normal in caliber and signal and terminates at L1. The cauda equina is unremarkable. SOFT TISSUES: There is a small postoperative fluid collection in the subcutaneous fat at the site of prior spinal cord stimulator lead. The visualized abdominal structures are unremarkable. L1-L2: There is no significant disc herniation, spinal canal stenosis or neural foraminal narrowing. L2-L3: There is no significant disc herniation, spinal canal stenosis or neural foraminal narrowing. L3-L4: There is a circumferential disc bulge. There is no canal stenosis or foraminal narrowing. L4-L5: There is a circumferential disc bulge. There is no canal stenosis or foraminal narrowing. L5-S1: There is a circumferential disc bulge. There is no canal stenosis or foraminal narrowing. IMPRESSION: Mild degenerative change without canal stenosis or foraminal narrowing. RECOMMENDATIONS: Unavailable [employer] Phone: Radiology Study observation (narrative) [employer] Phone: MRI LUMBAR SPINE WO CONTRAST Ordered By: Vern Olivo on 11-17-2022 [employer]Mail Phone: EVENT MONITORon 10-25-[address] [address] EVENT MONITOR PATIENT NAME: RISA WARNER : 1975 MED REC NO: [id number] ROOM: ACCOUNT NO: [id number] ADMIT DATE: 10/08/2022 PROVIDER: Nathan Ardon MD CARDIOVASCULAR DIAGNOSTIC DEPARTMENT DATE OF STUDY: 10/08/2022 ORDERING PROVIDER: Nathan Ardon MD PRIMARY CARE PROVIDER: Vivian Oseguera CNP INTERPRETING PHYSICIAN: Nathan Ardon MD DIAGNOSIS: Syncope and collapse. PHYSICIAN INTERPRETATION: Findings Summary 1. Predominant rhythm: Normal sinus rhythm. 2. Atrial tachycardia (AT) 1 episode, 4 beats at average 131 bpm up to 163 bpm. 3. PAC 0.02%. Six days and 21 hours recorded. Sinus rhythm with average heart rate of 91 bpm, ranging between 75 and 135 bpm. Sinus tachycardia represented 6% of the study duration. Rare premature atrial contractions with a 4 beats run of ectopic atrial tachycardia. No ventricular arrhythmia. NATHAN ARDON MD SERENITY/KATELYNN_KIARA Doc#: Unknown CC: Vivian Oseguera, JOSSE-COMMERCIAL ENGINEER Normal [facility] Basic Metabolic Panelon Anion gap [Moles/Vol] 14.5 mmol/L Normal 6.0-15.0 [facility] [place] [facility] Comment on above: Performed By: #### D IFF CBC, BMP #### [facility] [address] [place] [address] [place] Calcium [Mass/Vol] 9.2 mg/dL Normal 8.2-10.2 [facility] Comment on above: Performed By: #### D IFF CBC, BMP #### [facility] [address] [place] [id number] [place] Chloride [Moles/Vol] 101 mmol/L Normal 95-114 [facility] Comment on above: Performed By: #### D IFF CBC, BMP #### [facility] [address] CO2 [Moles/Vol] 24.0 mmol/L Normal 22.0-30.0 [facility] Comment on above: Performed By: #### D IFF CBC, BMP #### [facility] [address] Creatinine [Mass/Vol] 1.02 mg/dL Normal 0.44-1.03 [facility] Comment on above: Performed By: #### D IFF CBC, BMP #### [facility] [address] [place] [address] [place] Creatinine Clr Calc Pharmacy 78.76 [facility] Comment on above: Result Comment: PERF ORMED BY: [place] [address] PATHOLOGIST PAPER SPOOLER GRZEGORZ DUMONT M.D. Performed By: #### D IFF CBC, BMP #### [address] Estimated GFR ( Mai > 60 [facility] Comment on above: Result Comment: GFR estimated reference range: According to KDOQI guidelines, <60 ml/min/1.73m2 is sufficient to diagnose a patient with chronic kidney disease. Performed By: #### D IFF CBC, BMP #### [address] Estimated GFR (Non- Am 58 [facility] Comment on above: Performed By: #### D IFF CBC, BMP #### [facility] [address] Glucose [Mass/Vol] 223 mg/dL High 70-100 [facility] Comment on above: Result Comment: [place] om Glucose Reference Range is dependent on time and content of last meal. Glucose of more than 200 mg/dL in a nonstressed, ambulatory subject supports the diagnosis of Diabetes Mellitus. ADA recommended reference range Performed By: #### D IFF CBC, BMP #### [facility] [address] Potassium [Moles/Vol] 4.5 mmol/L Normal 3.5-5.1 [facility] Comment on above: Performed By: #### D IFF CBC, BMP #### [facility] [address] Sodium [Moles/Vol] 135 mmol/L Low 136-146 [facility] Comment on above: Performed By: #### D IFF CBC, BMP #### [facility] [address] [place] [id number] [place] Urea nitrogen [Mass/Vol] 29 mg/dL High 9-23 [facility] Comment on above: Performed By: #### D IFF CBC, BMP #### [facility] [address] Glucose Poct Glucometerson 0 10-04-2022 Glucose [Mass/Vol] 239 mg/dL Normal [facility] Comment on above: Result Comment: [facility] Glucose Reference Range is dependent on time and content of last meal. Glucose of more than 200 mg/dL in a nonstressed, ambulatory subject supports the diagnosis of Diabetes Mellitus. PERFORMED BY: [place] [address] PATHOLOGIST PAPER SPOOLER GRZEGORZ DUMONT M.D. Performed By: #### G LULS #### Point of Care testing , Glucose [Mass/Vol] 234 mg/dL Normal [facility] Comment on above: Result Comment: [facility] Glucose Reference Range is dependent on time and content of last meal. Glucose of more than 200 mg/dL in a nonstressed, ambulatory subject supports the diagnosis of Diabetes Mellitus. PERFORMED BY: [place] [address] PATHOLOGIST PAPER SPOOLER GRZEGORZ DUMONT M.D. Performed By: #### G LULS #### Point of Care testing , COVID-19 Antigenon 3 COVID-19 Antigen Healthcare Worker?: N Reference Range: Negative Negative results, from patients with symptom onset beyond five days, should be treated as presumptive and confirmation with a molecular assay, if necessary, for patient management, may be performed. Negative results do not rule out COVID-19 and should not be used as the sole basis for treatment or patient management decisions, including infection control decisions. Negative results should be considered in the context of a patient's recent exposures, history and the presence of clinical signs and symptoms consistent with COVID-19. The Tab SARS Antigen RY does not differentiate between SARS-CoV and SARS-CoV-2. This test was developed and its performance characteristic determined by [employer] and validated at [facility]. This test has not been FDA cleared or approved. This test has been authorized by FDA under an Emergency Use Authorization (EUA). This test has been validated in accordance with the FDA's Guidance Document (Policy for Diagnostics Testing in Laboratories Certified to Perform High Complexity Testing under CLIA prior to Emergency Use Authorization for Coronavirus Disease-2019 during the Public Health Emergency) issued on December 27, 2019. This test is only authorized for the duration of time the declaration that circumstances exist justifying the authorization of the emergency use of in vitro diagnostic tests for detection of SARS-CoV-2 virus and/or diagnosis of COVID-19 infection under section 564(b)(1) of the Act, 21 U.S.C. 360bbb-3(b)(1), unless the authorization is terminated or revoked sooner. SARS-CoV+SARS-CoV-2 (COVID-19) Ag [Presence] in Respiratory specimen by Rapid immunoassay Negative for SARS Antigen by RY PERFORMED BY: [address] [place] [address] PATHOLOGIST PAPER SPOOLER GRZEGORZ DUMONT M.D. Normal [facility] Comment on above: Performed By: #### C OVID-19 TAB, SOFIANEG #### [facility] [address] COVID-19 SOFIAOrdered By: Lucas Oliver on 09-30-2022 SARS-CoV+SARS-CoV-2 (COVID-19) Ag IA.rapid Ql (Resp) Negative Negative [facility] Comment on above: This is a duplicate Tab SARS Antigen (RY) result to be used for statistical tracking purpose only. No Panel InformationOrdered By: Shiraz Sherman on 09-30-2022 SARS Antigen (LFIA) [facility] Tab Ag Negativeon 09-30-19 23 Tab Ag Negative Negative Normal Negative [facility] Comment on above: Result Comment: This is a duplicate Tab SARS Antigen (RY) result to be used for statistical tracking purpose only. PERFORMED BY: [place] [address] PATHOLOGIST PAPER SPOOLER GRZEGORZ DUMONT M.D. Performed By: #### C OVID-19 TAB, SOFIANEG #### [address] TILT TABLE TESTon 09-30-2022 TILT TABLE TEST [address] [address] TILT TABLE TEST PATIENT NAME: RISA WARNER : 1975 MED REC NO: [id number] ROOM: ACCOUNT NO: [id number] ADMIT DATE: 09/29/2022 PROVIDER: Sharon Vargas MD Cardiovascular Diagnostics Department DATE OF PROCEDURE: 09/29/2022 ORDERING PROVIDER: HERBERT Edwards PRIMARY CARE PROVIDER: HERBERT Edwards INTERPRETING PHYSICIAN: Sharon Vargas MD Diagnosis: Syncope. PROCEDURE SUMMARY: After explaining the risk, benefits and alternatives to the procedure, informed written consent was obtained. The patient was brought to the tilt table laboratory in a fasting and resting state. The patient was placed on the tilt table in the supine position, ECG patches were applied and an IV was placed. The patient's baseline blood pressure was 120/72 mmHg with a heart rate of 98/minute. The patient was then raised to the 70 degree head upright tilt position with and pulse rate, blood pressure and cardiac rhythm were monitored and recorded each minute of the study for a maximum of 30 minutes. During the initial 20 minutes of the study, the patient's blood pressure ranged from a high of 125/66 mmHg to a low of 108/59 mmHg, while their heart rate ranged from a low of 100/minute to a high of 105/minute. During this period, the patient reported no symptoms. During the last 10 minutes of the study, nitroglycerin 0.3 mg was give sublingually. During this time, the patient's blood pressure ranged from a high of 119/64 mmHg to a low of 84/46 mmHg, while their heart rate ranged from a low of 102/minute to a high of 114/minute. During this period, the patient reported mild/moderate lightheadedness and vision changes. At this point, the patient was returned to the supine position and monitored for an additional ten minutes. Once the patient felt well enough to be discharged home, they were discharged home with instructions to follow up with their primary care physician and/or gun repair clerk as previously scheduled. STUDY CONCLUSIONS: Abnormal head upright tilt table study. The patient's heart rate, blood pressure response and symptoms were most consistent with orthostatic intolerance. Combined with vigilant maintenance of euvolemia and maintaining a moderate salt intake, pharmacologic treatment with Florinef, ProAmatine and/or Mestinon among other treatments have shown some effectiveness in the treatment of this condition. SHARON VARGAS MD YURY/JULIUS_JAMESIT Doc#: Unknown CC: HERBERT Edwards [facility] Tilt Table Teston 09-29-2022 Sharon Vargas MD - 09/29/2022 11:59 PM EST [place] [id number] TILT TABLE TEST PATIENT NAME: RISA WARNER : 1975 MED REC NO: [id number] ROOM: ACCOUNT NO: [id number] ADMIT DATE: 09/29/2022 PROVIDER: Sharon Vargas MD Cardiovascular Diagnostics Department DATE OF PROCEDURE: 09/29/2022 ORDERING PROVIDER: HERBERT Edwards PRIMARY CARE PROVIDER: HERBERT Edwards INTERPRETING PHYSICIAN: Sharon Vargas MD Diagnosis: Syncope. PROCEDURE SUMMARY: After explaining the risk, benefits and alternatives to the procedure, informed written consent was obtained. The patient was brought to the tilt table laboratory in a fasting and resting state. The patient was placed on the tilt table in the supine position, ECG patches were applied and an IV was placed. The patient's baseline blood pressure was 120/72 mmHg with a heart rate of 98/minute. The patient was then raised to the 70 degree head upright tilt position with and pulse rate, blood pressure and cardiac rhythm were monitored and recorded each minute of the study for a maximum of 30 minutes. During the initial 20 minutes of the study, the patient's blood pressure ranged from a high of 125/66 mmHg to a low of 108/59 mmHg, while their heart rate ranged from a low of 100/minute to a high of 105/minute. During this period, the patient reported no symptoms. During the last 10 minutes of the study, nitroglycerin 0.3 mg was give sublingually. During this time, the patient's blood pressure ranged from a high of 119/64 mmHg to a low of 84/46 mmHg, while their heart rate ranged from a low of 102/minute to a high of 114/minute. During this period, the patient reported mild/moderate lightheadedness and vision changes. At this point, the patient was returned to the supine position and monitored for an additional ten minutes. Once the patient felt well enough to be discharged home, they were discharged home with instructions to follow up with their primary care physician and/or gun repair clerk as previously scheduled. STUDY CONCLUSIONS: Abnormal head upright tilt table study. The patient's heart rate, blood pressure response and symptoms were most consistent with orthostatic intolerance. Combined with vigilant maintenance of euvolemia and maintaining a moderate salt intake, pharmacologic treatment with Florinef, ProAmatine and/or Mestinon among other treatments have shown some effectiveness in the treatment of this condition. SHARON VARGAS MD YURY/JULIUS_KIARA Doc#: Unknown CC: Vivian Oseguera APRN-[facility] Work Phone: Tilt Table TestOrdered By: Cheo Vargas on 09-29-2022 [facility] [employer] Phone: Hemoglobin A1Con 09-22-2022 Glucose [Mass/Vol] 194 mg/dL Normal [facility] Comment on above: Result Comment: The ADA and AACC recommend providing the estimated average glucose result to permit better patient understanding of their HBA1c result. Performed By: #### B PAWN SHOP KEEPER #### [facility] [address] [place] [address] [place] [address] Judicial Registrar: Phillip Camarena MD HbA1c (Bld) [Mass fraction] 8.4 % High 4.0-6.0 [facility] Comment on above: Performed By: #### B PAWN SHOP KEEPER #### [facility] [address] [place] [address] [place] [address] Judicial Registrar: Phillip Camarena MD LDL Chol, Directon 2 LDL Chol, Direct 48 mg/dL Normal <100 [facility] Comment on above: Performed By: #### E 2, FSH #### [facility] [address] [place], [place] [id number] Judicial Registrar: Melvin Santoyo MD #### CBC #### [facility] [address] [place] [address] [place] [address] Judicial Registrar: Phillip Camarena MD LDL Cholesterol, Directon Cholesterol in LDL [Mass/Vol] 48 mg/dL NINF - 100 mg/dL [facility] Lipid Profileon 09-22-2022 Cholesterol,LDL Normal 0-[address] [facility] Comment on above: Result Comment: Calc ulation not valid for Triglyceride value greater than 400 mg/dL. Direct LDL reflexed LDL Guidelines: <100 Desirable 100-129 Near to/above Desirable 130-159 Borderline >159 Undesirable Direct (measured) LDL and calculated LDL are not interchangeable tests. Performed By: #### E 2, FSH #### [facility] [address] [place], [place] [address] Judicial Registrar: Melvin Santoyo MD #### CBC #### [facility] [address] [place] [address] [place] [address] Judicial Registrar: Phillip Camarena MD Triglyceride [Mass/Vol] 1567 mg/dL High <150 [facility] Comment on above: Result Comment: Triglyceride Guidelines: <150 Desirable 150-199 Borderline 200-499 High >499 Very high Based on AHA Guidelines for fasting triglyceride, June 2012. Performed By: #### E 2, FSH #### [facility] [address] [place] [address] Judicial Registrar: Melvin Santoyo MD #### CBC #### [facility] [address] [place] [address] [address]. [place], [place] [id number] Judicial Registrar: Phillip Camarena MD Cholesterol [Mass/Vol] 215 mg/dL High <200 [facility] Comment on above: Result Comment: Cholesterol Guidelines: <200 Desirable 200-240 Borderline >240 Undesirable Performed By: #### E 2, FSH #### [address] [address] Judicial Registrar: Melvin Santoyo MD #### CBC #### [facility] [address] [place] [address] Dr. [place], [place] [id number] Judicial Registrar: Phillip Camarena MD Cholesterol in HDL [Mass/Vol] 21 mg/dL Low >40 [facility] Comment on above: Result Comment: HDL Guidelines: <40 Undesirable 40-59 Borderline >59 Desirable Performed By: #### E 2, FSH #### [address] [address] Judicial Registrar: Melvin Santoyo MD #### CBC #### [facility] [address] [place] [address] Dr. [place], [place] [id number] Judicial Registrar: Phillip Camarena MD Cholesterol.total/Chol esterol in HDL [Mass ratio] 10.2 {ratio} High <5 [facility] Comment on above: Performed By: #### E 2, FSH #### [address] [address] Judicial Registrar: Melvin Santoyo MD #### CBC #### [facility] [address] [place] [address] [address] [place], [place] [id number] Judicial Registrar: Phillip Camarena MD Microalb.,Random Uron 2021 Creatinine [Mass/Vol] 80.3 mg/dL Normal 28.0-217.0 [facility] Comment on above: Performed By: #### U RNMAB #### [place] [id number] [place], [place] [id number] Judicial Registrar: Melvin Santoyo MD Microalb/Creat Ratio Can not be calculated Normal <25 [facility] Comment on above: Performed By: #### U RNMAB #### [address] [id number] Judicial Registrar: Melvin Santoyo MD Microalbumin conc. <12 Normal <21 [facility] Comment on above: Performed By: #### U RNMAB #### [address] [id number] Judicial Registrar: Melvin Santoyo MD [place] 09-21-2022 ALT [Catalytic activity/Vol] U/L Low 5-33 [facility] [facility] Comment on above: Performed By: #### B PAWN SHOP KEEPER #### [facility] [address] [place] [address] Judicial Registrar: Phillip Camarena MD ALT [Catalytic activity/Vol] U/L Low 5 - 33 U/L [facility] Interpretation and review of laboratory results Abnormal [facility] Fredy 09-21-2022 AST [Catalytic activity/Vol] U/L Normal <32 [facility] Comment on above: Performed By: #### B PAWN SHOP KEEPER #### [facility] [address] [place] [address] Judicial Registrar: Phillip Camarena MD AST [Catalytic activity/Vol] U/L NINF - 32 U/L [facility] Band form neutrophils/100 WB C Manual cnt (Bld)Ordered By: Shiraz Sherman on 09-21-2022 Band form neutrophils/100 WBC (Bld) 4 % 0-5 [facility] Basic Metabolic Panelon 12-2 Anion gap [Moles/Vol] 14.4 mmol/L Normal 6.0-15.0 [facility] Comment on above: Performed By: #### D IFF CBC, BMP #### [facility] [address] [id number] [place] Calcium [Mass/Vol] 10.0 mg/dL Normal 8.2-10.2 [facility] Comment on above: Result Comment: PERF ORMED BY: [place] [address] PATHOLOGIST PAPER SPOOLER GRZEGORZ DUMONT M.D. Performed By: #### D IFF CBC, BMP #### [facility] [address] [place] [address] [place] Chloride [Moles/Vol] 99 mmol/L Normal 95-114 [facility] Comment on above: Performed By: #### D IFF CBC, BMP #### [facility] [address] CO2 [Moles/Vol] 23.5 mmol/L Normal 22.0-30.0 [facility] Comment on above: Performed By: #### D IFF CBC, BMP #### [facility] [address] [place] [address] [place] Creatinine [Mass/Vol] 0.91 mg/dL Normal 0.44-1.03 [facility] Comment on above: Performed By: #### D IFF CBC, BMP #### [facility] [address] [place] [address] [place] Estimated GFR ( Mai > 60 [facility] Comment on above: Result Comment: GFR estimated reference range: According to KDOQI guidelines, <60 ml/min/1.73m2 is sufficient to diagnose a patient with chronic kidney disease. Performed By: #### D IFF CBC, BMP #### [facility] [address] [place] [address] [place] Estimated GFR (Non- Am > 60 [facility] Comment on above: Performed By: #### D IFF CBC, BMP #### [facility] [address] [id number] [place] Glucose [Mass/Vol] 270 mg/dL High 70-100 [facility] Comment on above: Result Comment: Bárbara dickens Glucose Reference Range is dependent on time and content of last meal. Glucose of more than 200 mg/dL in a nonstressed, ambulatory subject supports the diagnosis of Diabetes Mellitus. ADA recommended reference range Performed By: #### D IFF CBC, BMP #### [facility] [address] [place] [address] [place] Potassium [Moles/Vol] 4.9 mmol/L Normal 3.5-5.1 [facility] Comment on above: Performed By: #### D IFF CBC, BMP #### [facility] [address] [id number] [place] Sodium [Moles/Vol] 132 mmol/L Low 136-146 [facility] Comment on above: Performed By: #### D IFF CBC, BMP #### [facility] [address] [place] [address] [place] Urea nitrogen [Mass/Vol] 20 mg/dL Normal 9-23 [facility] Comment on above: Performed By: #### D IFF CBC, BMP #### [facility] [address] [id number] [place] Anion gap [Moles/Vol] 15 mmol/L 9 - 17 mmol/L [facility] Calcium [Mass/Vol] 10.2 mg/dL 8.6 - 10. 4 mg/dL [facility] Chloride [Moles/Vol] 98 mmol/L 98 - 10 7 mmol/L [facility] CO2 [Moles/Vol] 22 mmol/L 20 - 31 mmol/L [facility] Creatinine [Mass/Vol] 0.85 mg/dL 0.50 - 0.90 mg/dL [facility] GFR/1.73 sq M.predicted MDRD (S/P/Bld) [Vol rate/Area] - PINF [facility] Comment on above: Effective Jun 28, 2022 These results are not intended for use in patients <18 years of age. eGFR results are calculated without a race factor using the 2020 CKD-EPI equation. Careful clinical correlation is recommended, particularly when comparing to results calculated using previous equations. The CKD-EPI equation is less accurate in patients with extremes of muscle mass, extra-renal metabolism of creatine, excessive creatine ingestion, or following therapy that affects renal tubular secretion. Glucose [Mass/Vol] 271 mg/dL High 70 - 99 mg/dL [facility] Interpretation and review of laboratory results Abnormal [facility] Potassium [Moles/Vol] 4.8 mmol/L 3.7 - 5.3 mmol/L [facility] Sodium [Moles/Vol] 135 mmol/L 135 - 144 mmol/L [facility] Urea nitrogen (BldV) [Mass/Vol] 22 mg/dL High 6 - 20 mg/dL [facility] Urea nitrogen/Creatinine (Bld) [Mass ratio] 26 High 9 - 20 [facility] Basic Metabolic Profon 09-21 Anion gap [Moles/Vol] 15 mmol/L Normal 9-17 [facility] Comment on above: Performed By: #### B PAWN SHOP KEEPER #### [facility] [address] [place] [address] Judicial Registrar: Phillip Camarena MD BUN/CRE Ratio 26 High 9-20 [facility] Comment on above: Performed By: #### B PAWN SHOP KEEPER #### [facility] [address] [place] [address] Judicial Registrar: Phillip Camarena MD Calcium [Mass/Vol] 10.2 mg/dL Normal 8.6-10.4 [facility] Comment on above: Performed By: #### B PAWN SHOP KEEPER #### [facility] [address] [place] [address] Judicial Registrar: Phillip Camarena MD Chloride [Moles/Vol] 98 mmol/L Normal 98-107 [facility] Comment on above: Performed By: #### B PAWN SHOP KEEPER #### [facility] [address] [place] [address] Judicial Registrar: Phillip Camarena MD CO2 [Moles/Vol] 22 mmol/L Normal 20-[address] [facility] Comment on above: Performed By: #### B PAWN SHOP KEEPER #### [facility] [address] [place] [address] Judicial Registrar: Phillip Camarena MD Creatinine [Mass/Vol] 0.85 mg/dL Normal 0.50-0.90 [facility] Comment on above: Performed By: #### B PAWN SHOP KEEPER #### [facility] [address] [place] [address] Judicial Registrar: Phillip Camarena MD GFR/1.73 sq M.predicted among non-blacks MDRD (S/P/Bld) [Vol rate/Area] mL/min/{1.73_m2} Normal >60 [facility] Comment on above: Result Comment: Effective Jun 28, 2022 These results are not intended for use in patients <18 years of age. eGFR results are calculated without a race factor using the 2020 CKD-EPI equation. Careful clinical correlation is recommended, particularly when comparing to results calculated using previous equations. The CKD-EPI equation is less accurate in patients with extremes of muscle mass, extra-renal metabolism of creatine, excessive creatine ingestion, or following therapy that affects renal tubular secretion. Performed By: #### B PAWN SHOP KEEPER #### [address] [place] [address] Judicial Registrar: Phillip Camarena MD Glucose [Mass/Vol] 271 mg/dL High 70-99 [facility] Comment on above: Performed By: #### B PAWN SHOP KEEPER #### [facility] [address] [place] [address] Judicial Registrar: Phillip Camarena MD Potassium [Moles/Vol] 4.8 mmol/L Normal 3.7-5.3 [facility] Comment on above: Performed By: #### B PAWN SHOP KEEPER #### [facility] [address] [place] [address] Judicial Registrar: Phillip Camarena MD Sodium [Moles/Vol] 135 mmol/L Normal 135-144 [facility] Comment on above: Performed By: #### B PAWN SHOP KEEPER #### [facility] [address] [place] [address] Judicial Registrar: Phillip Camarena MD Urea nitrogen [Mass/Vol] 22 mg/dL High 6-20 [facility] Comment on above: Performed By: #### B PAWN SHOP KEEPER #### [facility] [address] [place] [address] Judicial Registrar: Phillip Camarena MD Basophils Auto (Bld) [#/Vol] Ordered By: Shiraz Sherman on 09-21-2022 Basophils (Bld) [#/Vol] N/A [facility] Basophils/100 WBC Auto (Bld) Ordered By: Shiraz hSerman on 09-21-2022 Basophils/100 WBC (Bld) N/A [facility] Basophils/100 WBC Manual cnt (Bld)Ordered By: Shiraz Sherman on 09-21-2022 Basophils/100 WBC (Bld) 1 % 0-2 [facility] CBC with Auto Differentialon 09-21-2022 Absolute Eos # 0.57 High [facility] Absolute Immature Granulocyte 0.19 [facility] Absolute Lymph # 3.29 [facility] Absolute [place] # 0.66 [facility] Basophils (Bld) [#/Vol] 0.11 10*3/uL [facility] Basophils/100 WBC (Bld) 1 % 0 - 2 % [facility] Eosinophils/100 WBC (Bld) 6 % High 1 - 4 % [facility] Hematocrit (Bld) [Volume fraction] 43.2 % 36.3 - 47.1 % [facility] Hemoglobin (Bld) [Mass/Vol] 13.9 g/dL 11.9 - 15.1 g/dL [facility] Immature granulocytes/100 WBC (Bld) 2 % High 0 [facility] Interpretation and review of laboratory results Abnormal [facility] Lymphocytes/100 WBC (Bld) 35 % 24 - 43 % [facility] MCH (RBC) [Entitic mass] 32.3 pg 25.2 - 33.5 pg [facility] MCHC (RBC) [Mass/Vol] 32.2 g/dL 28.4 - 34.8 g/dL [facility] MCV (RBC) [Entitic vol] 100.5 fL 82.6 - 102.9 fL [facility] Monocytes/100 WBC (Bld) 7 % 3 - 12 % [facility] NRBC Automated 0.0 0.0 per 100 WBC [facility] Platelet distribution width (Bld) [Ratio] 13.2 % 11.8 - 14.4 % [facility] Platelet mean volume (Bld) [Entitic vol] 9.1 fL 8.1 - 13.5 fL [facility] Platelets (Bld) [#/Vol] 393 10*3/uL [facility] RBC (Bld) [#/Vol] 4.30 10*6/uL 3.95 - 5.1 1 m/uL [facility] Segmented neutrophils/100 WBC (Bld) 49 % 36 - 65 % [facility] Segs Absolute 4.59 [facility] WBC (Bld) [#/Vol] 9.4 10*3/uL [facility] CBC with Diffon 09-21-2022 Abs. Basophil 0.11 k/uL Normal 0.00-0.20 [facility] Comment on above: Performed By: #### B PAWN SHOP KEEPER #### [facility] [address] [place], [place] [id number] Judicial Registrar: Phillip Camarena MD Abs.Imm.Granulocyte 0.19 k/uL Normal 0.00-0.30 [facility] Comment on above: Performed By: #### B PAWN SHOP KEEPER #### [facility] [address] [place], [place] [id number] Judicial Registrar: Phillip Camarena MD Abs.Neutrophil (Seg) 4.59 k/uL Normal 1.50-8.10 [facility] Comment on above: Performed By: #### B PAWN SHOP KEEPER #### [facility] [address] [place] [address] Judicial Registrar: Phillip Camarena MD Basophils/100 WBC (Bld) 1 % Normal 0-2 [facility] Comment on above: Performed By: #### B PAWN SHOP KEEPER #### [address] [place], [place] [address] Judicial Registrar: Phillip Camarena MD Eosinophils (Bld) [#/Vol] 0.57 10*3/uL High 0.00-0.44 [facility] Comment on above: Performed By: #### B PAWN SHOP KEEPER #### [address] [place], [facility] Judicial Registrar: Phillip Camarena MD Eosinophils/100 WBC (Bld) 6 % High 1-4 [facility] Comment on above: Performed By: #### B PAWN SHOP KEEPER #### [address] [place] [id number] Judicial Registrar: Phillip Camarena MD Erythrocyte distribution width (RBC) [Ratio] 13.2 % Normal 11.8-14.4 [facility] Comment on above: Performed By: #### B PAWN SHOP KEEPER #### [address] [place], [facility]83 Judicial Registrar: Phillip Camarena MD Hematocrit (Bld) [Volume fraction] 43.2 % Normal 36.3-47.1 [facility] Comment on above: Performed By: #### B PAWN SHOP KEEPER #### [address] [place], [facility]83 Judicial Registrar: Phillip Camarena MD Hemoglobin (Bld) [Mass/Vol] 13.9 g/dL Normal 11.9-15.1 [facility] Comment on above: Performed By: #### B PAWN SHOP KEEPER #### [address] [place], [place] [address] Judicial Registrar: Phillip Camarena MD Immature granulocytes/100 WBC (Bld) 2 % High 0 [facility] Comment on above: Performed By: #### B PAWN SHOP KEEPER #### [address] [place], [place] [id number] Judicial Registrar: Phillip Camarena MD Lymphocytes (Bld) [#/Vol] 3.29 10*3/uL Normal 1.10-3.70 [facility] Comment on above: Performed By: #### B PAWN SHOP KEEPER #### [facility] [address] [place] [address] Judicial Registrar: Phillip Camarena MD Lymphocytes/100 WBC (Bld) 35 % Normal 24-43 [facility] Comment on above: Performed By: #### B PAWN SHOP KEEPER #### [facility] [address] [place], [facility]83 Judicial Registrar: Phillip Camarena MD MCH (RBC) [Entitic mass] 32.3 pg Normal 25.2-33.5 [facility] Comment on above: Performed By: #### B PAWN SHOP KEEPER #### [address] [place], [facility]83 Judicial Registrar: Phillip Camarena MD MCHC (RBC) [Mass/Vol] 32.2 g/dL Normal 28.4-34.8 [facility] Comment on above: Performed By: #### B PAWN SHOP KEEPER #### [address] [place], [facility]83 Judicial Registrar: Phillip Camarena MD MCV (RBC) [Entitic vol] 100.5 fL Normal 82.6-102.9 [facility] Comment on above: Performed By: #### B PAWN SHOP KEEPER #### [facility] [address] [place], [facility]83 Judicial Registrar: Phillip Camarena MD Monocytes (Bld) [#/Vol] 0.66 10*3/uL Normal 0.10-1.20 [facility] Comment on above: Performed By: #### B PAWN SHOP KEEPER #### [facility] [address] [place] [address] Judicial Registrar: Phillip Camarena MD Monocytes/100 WBC (Bld) 7 % Normal 3-12 [facility] Comment on above: Performed By: #### B PAWN SHOP KEEPER #### [facility] [address] [place], [place] [id number] Judicial Registrar: Phillip Camarena MD Neutrophil (Seg) 49 % Normal 36-65 [facility] Comment on above: Performed By: #### B PAWN SHOP KEEPER #### [facility] [address] [place], [place] [address] Judicial Registrar: Phillip Camarena MD NRBC Automated 0.0 per 100 WBC Normal 0.0 [facility] Comment on above: Performed By: #### B PAWN SHOP KEEPER #### [facility] [address] [place], [facility]83 Judicial Registrar: Phillip Camarena MD Platelet mean volume (Bld) [Entitic vol] 9.1 fL Normal 8.1-13.5 [facility] Comment on above: Performed By: #### B PAWN SHOP KEEPER #### [address] [place] [address] Judicial Registrar: Phillip Camarena MD Platelets (Bld) [#/Vol] 393 10*3/uL Normal 138-453 [facility] Comment on above: Performed By: #### B PAWN SHOP KEEPER #### [address] [place], [facility]83 Judicial Registrar: Phillip Camarena MD RBC (Bld) [#/Vol] 4.30 10*6/uL Normal 3.95-5.11 [facility] Comment on above: Performed By: #### B PAWN SHOP KEEPER #### [address] [place], [place] [id number] Judicial Registrar: Phillip Camarena MD WBC (Bld) [#/Vol] 9.4 10*3/uL Normal 3.5-11.3 [facility] Comment on above: Performed By: #### B PAWN SHOP KEEPER #### [facility] [address] [place] [address] Judicial Registrar: Phlilip Camarena MD Creatinine and Glomerular fi ltration rate.predicted panel (S/P/Bld)Ordered By: Shiraz Sherman on 09-21-2022 Creatinine [Mass/Vol] 0.91 mg/dL 0.44-1.03 [facility] Diff and CBCon 09-21-2022 Band form neutrophils/100 WBC (Bld) 4 % Normal 0-5 [facility] Comment on above: Performed By: #### D IFF CBC, BMP #### [facility] [address] [place] [address] [place] Basophils/100 WBC (Bld) 1 % Normal 0-2 [facility] Comment on above: Performed By: #### D IFF CBC, BMP #### [facility] [address] [place] [id number] [place] Eosinophils/100 WBC (Bld) 7 % High 1-3 [facility] Comment on above: Performed By: #### D IFF CBC, BMP #### [facility] [address] [phone] [place] Erythrocyte distribution width (RBC) [Ratio] 14.2 % Normal 11.9-15.3 [facility] Comment on above: Performed By: #### D IFF CBC, BMP #### [facility] [address] [phone] [place] Giant Platelet Tally 2 /100{WBC} Normal [facility] Comment on above: Performed By: #### D IFF CBC, BMP #### [facility] [address] [place] [address] [place] Hematocrit (Bld) [Volume fraction] 38.8 % Normal 34.0-46.4 [facility] Comment on above: Performed By: #### D IFF CBC, BMP #### [facility] [address] [place] [phone] [place] Hemoglobin (Bld) [Mass/Vol] 12.9 g/dL Normal 11.8-15.4 [facility] Comment on above: Performed By: #### D IFF CBC, BMP #### [facility] [address] Lymphocytes/100 WBC (Bld) 15 % Low 18-42 [facility] Comment on above: Performed By: #### D IFF CBC, BMP #### [facility] [address] MCH (RBC) [Entitic mass] 31.0 pg Normal 24.7-34.3 [facility] Comment on above: Performed By: #### D IFF CBC, BMP #### [facility] [address] [place] [address] MCV (RBC) [Entitic vol] 93.3 fL Normal 80-100 [facility] Comment on above: Performed By: #### D IFF CBC, BMP #### [address] Mean Corpuscular HGB Conc 33.2 g/dL Normal 32.0-35.0 [facility] Comment on above: Performed By: #### D IFF CBC, BMP #### [address] Metamyelocytes 2 % High 0-0 [facility] Comment on above: Performed By: #### D IFF CBC, BMP #### [address] Monocytes/100 WBC (Bld) 9 % Normal 2-11 [facility] Comment on above: Performed By: #### D IFF CBC, BMP #### [facility] [address] [place] [address] Myelocytes 1 % High 0-0 [facility] Comment on above: Performed By: #### D IFF CBC, BMP #### [facility] [address] [place] [address] Platelet Estimate Normal Normal Normal [facility] Comment on above: Performed By: #### D IFF CBC, BMP #### [facility] [address] [place] [address] Platelet mean volume (Bld) [Entitic vol] 7.4 fL Normal 6.3-10.7 [facility] Comment on above: Result Comment: PERF ORMED BY: [place] [address] PATHOLOGIST PAPER SPOOLER GRZEGORZ DUMONT M.D. Performed By: #### D IFF CBC, BMP #### [facility] [address] [place] [address] Platelet Morphology Normal Normal Normal [facility] Comment on above: Result Comment: PERF ORMED BY: [place] [address] PATHOLOGIST PAPER SPOOLER GRZEGORZ DUMONT M.D. Performed By: #### D IFF CBC, BMP #### [address] Platelets (Bld) [#/Vol] 363 10*3/uL Normal 150-450 [facility] Comment on above: Performed By: #### D IFF CBC, BMP #### [address] RBC (Bld) [#/Vol] 4.16 10*6/uL Normal 3.60-5.00 [facility] Comment on above: Performed By: #### D IFF CBC, BMP #### [address] RBC morphology finding Nom (Bld) Normal Normal Normal [facility] Comment on above: Performed By: #### D IFF CBC, BMP #### [place] [address] [place] Segmented neutrophils/100 WBC (Bld) 62 % Normal 50-70 [facility] Comment on above: Performed By: #### D IFF CBC, BMP #### [facility] [address] [place] [address] WBC (Bld) [#/Vol] 8.4 10*3/uL Normal 3.8-11.6 [facility] Comment on above: Performed By: #### D IFF CBC, BMP #### [address] ECG 12 lead ECGon 09-21-2022 ECG 12 lead ECG [facility] [place] [address] Electrocardiograph Report Signed Patient: Risa Warner MR#: [id number] 52 : 1975 Acct:[id number] Age/Sex: 47 / F ADM Date: 09/21/22 Loc: Room: Type: [facility] Attending Dr: Shiraz Sherman MD Ordering Provider: Shiraz Sherman MD Date of Service: 09/21/22 ECG/ECG 12 lead ECG: surgery 10-04-2022 Copies to: Test Reason : Blood Pressure : / mmHG Vent. Rate : 108 BPM Atrial Rate : 108 BPM P-R Int : 132 ms QRS Dur : 090 ms QT Int : 338 ms P-R-T Axes : 000 -10 135 degrees QTc Int : 452 ms Sinus tachycardia Possible Lateral infarct , age undetermined Abnormal ECG No previous ECGs available Confirmed by JOHN SANCHEZ MD ([id number]) on 09/21/2022 5:10:14 PM Referred By: DENYS Electronically Signed By:JOHN SANCHEZ MD Transcribed By: MUS Signed By John Sanchez MD 1 11/22/21 1710 Normal [facility] Eosinophils Auto (Bld) [#/Vo l]Ordered By: Shiraz Sherman on 09-21-2022 Eosinophils (Bld) [#/Vol] N/A [facility] Eosinophils/100 WBC Auto (Bl d)Ordered By: Shiraz Sherman on 09-21-2022 Eosinophils/100 WBC (Bld) N/A [facility] Eosinophils/100 WBC Manual c nt (Bld)Ordered By: Shiraz Sherman on 09-21-2022 Eosinophils/100 WBC (Bld) 7 % 1-3 [facility] Erythrocyte distribution wid th Auto (RBC) [Ratio]Ordered By: Shiraz Sherman on 09-21-2022 Erythrocyte distribution width (RBC) [Ratio] 14.2 % 11.9-15.3 [facility] Estimated glomerular filtrat ion rate (GFR) non- AmericanOrdered By: Shiraz Sherman on 09-21-2022 GFR/1.73 sq M.predicted among non-blacks MDRD (S/P/Bld) [Vol rate/Area] > 60 mL/Min [facility] Giant platelets/100 leukocyt es [Ratio] in Blood by Manual countOrdered By: Shiraz Sherman on 09-21-2022 Giant platelets/100 WBC Manual cnt (Bld) [Ratio] 2 /100{WBC} [facility] Hematocrit Auto (Bld) [Volum e fraction]Ordered By: Shiraz Sherman on 09-21-2022 Hematocrit (Bld) [Volume fraction] 38.8 % 34.0-46.4 [facility] Hemoglobin [Mass/volume] in BloodOrdered By: Shiraz Sherman on 09-21-2022 Hemoglobin (Bld) [Mass/Vol] 12.9 g/dL 11.8-15.4 [facility] Leukocytes [#/volume] correc priya for nucleated erythrocytes in Blood by Automated counOrdered By: Shiraz Sherman on 09-21-2022 WBC corrected for nucl RBC Auto (Bld) [#/Vol] 8.4 10*3/uL 3.8-11.6 [facility] Lipid Panelon 09-21-2022 Cholesterol [Mass/Vol] 215 mg/dL High NINF - 200 mg/dL [facility] Comment on above: Cholesterol Guidelines: <200 Desirable 200-240 Borderline >240 Undesirable Cholesterol in HDL [Mass/Vol] 21 mg/dL Low 40 - PINF mg/dL [employer] [facility] Comment on above: HDL Guidelines: <40 Undesirable 40-59 Borderline >59 Desirable Cholesterol.total/Chol esterol in HDL [Mass ratio] 10.2 {ratio} High NINF - 5 [employer] Interpretation and review of laboratory results Abnormal [employer] LDL Cholesterol 0 - 130 mg/dL [employer] Comment on above: Calculation not tracy d for Triglyceride value greater than 400 mg/dL. Direct LDL reflexed LDL Guidelines: <100 Desirable 100-129 Near to/above Desirable 130-159 Borderline >159 Undesirable Direct (measured) LDL and calculated LDL are not interchangeable tests. Triglyceride [Mass/Vol] 1567 mg/dL High NINF - 150 mg/dL [employer] Comment on above: Triglyceride Guidelines: <150 Desirable 150-199 Borderline 200-499 High >499 Very high Based on AHA Guidelines for fasting triglyceride, June 2012. [facility] Lymphocytes Auto (Bld) [#/Vo l]Ordered By: Shiraz Sherman on 09-21-2022 Lymphocytes (Bld) [#/Vol] N/A [facility] Lymphocytes/100 WBC Auto (Bl d)Ordered By: Shiraz Sherman on 09-21-2022 Lymphocytes/100 WBC (Bld) N/A [facility] Lymphocytes/100 WBC Manual c nt (Bld)Ordered By: Shiraz Sherman on 09-21-2022 Lymphocytes/100 WBC (Bld) 15 % 18-42 [facility] MCH Auto (RBC) [Entitic mass ]Ordered By: Shiraz Sherman on 09-21-2022 MCH (RBC) [Entitic mass] 31.0 pg 24.7-34.3 [facility] MCHC Auto (RBC) [Mass/Vol]Or dered By: Shiraz Sherman on 09-21-2022 MCHC (RBC) [Mass/Vol] 33.2 g/dL 32.0-35.0 [facility] MCV Auto (RBC) [Entitic vol] Ordered By: Shiraz Sherman on 09-21-2022 MCV (RBC) [Entitic vol] 93.3 fL 80-100 [facility] Metamyelocytes/100 WBC Manua l cnt (Bld)Ordered By: Shiraz Sherman on 09-21-2022 Metamyelocytes/100 WBC (Bld) 2 % 0-0 [facility] Microalbumin, Uron 2 Albumin/Creatinine DL <= 20 mg/L (24H U) [Mass ratio] mg/L NINF - 21 mg/L [facility] Albumin/Creatinine DL <= 20 mg/L (U) [Ratio] Can not be calculated [facility] Creatinine [Mass/Vol] 80.3 mg/dL 28.0 - 217.0 mg/dL [facility] Monocytes Auto (Bld) [#/Vol] Ordered By: Shiraz Sherman on 09-21-2022 Monocytes (Bld) [#/Vol] N/A [facility] Monocytes/100 WBC Auto (Bld) Ordered By: Shiraz Sherman on 09-21-2022 Monocytes/100 WBC (Bld) N/A [facility] Monocytes/100 WBC Manual cnt (Bld)Ordered By: Shiraz Sherman on 09-21-2022 Monocytes/100 WBC (Bld) 9 % 2-11 [facility] Myelocytes/100 WBC Manual cn t (Bld)Ordered By: Shiraz Sherman on 09-21-2022 Myelocytes/100 WBC (Bld) 1 % 0-0 [facility] Neutrophils Auto (Bld) [#/Vo l]Ordered By: Shiraz Sherman on 09-21-2022 Neutrophils (Bld) [#/Vol] N/A [facility] Neutrophils/100 WBC Auto (Bl d)Ordered By: Shiraz Sherman on 09-21-2022 Neutrophils/100 WBC (Bld) N/A [facility] No Panel InformationOrdered By: Shiraz Sherman on 09-21-2022 Estimated GFR () > 60 mL/Min [facility] Comment on above: GFR estimated refere nce range: According to KDOQI guidelines, <60 ml/min/1.73m2 is sufficient to diagnose a patient with chronic kidney disease. Pharmacy Creatinine Clearance (Chem N/A [facility] No Panel Informationon 09-21 [facility] Nucleated erythrocytes [Pres ence] in Blood by Automated countOrdered By: Shiraz Sherman on 09-21-2022 Nucleated RBC Auto Ql (Bld) N/A [facility] Platelet adequacy [Presence] in Blood by Light microscopyOrdered By: Shiraz Sherman on 09-21-2022 Platelets LM Ql (Bld) Normal Normal Fir [facility] Platelet mean volume Auto (B ld) [Entitic vol]Ordered By: Shiraz Sherman on 09-21-2022 Platelet mean volume (Bld) [Entitic vol] 7.4 fL 6.3-10.7 [facility] Platelet morphology finding [Identifier] in BloodOrdered By: Shiraz Sherman on 09-21-2022 Platelet morphology finding Nom (Bld) Normal Normal [facility] Platelets Auto (Bld) [#/Vol] Ordered By: Shiraz Sherman on 09-21-2022 Platelets (Bld) [#/Vol] 363 10*3/uL 150-450 [facility] RBC Auto (Bld) [#/Vol]Ordere d By: Shiraz Sherman on 09-21-2022 RBC (Bld) [#/Vol] 4.16 10*6/uL 3.60-5.00 [facility] RBC morphologyOrdered By: Lucas Oliver on 09-21-2022 RBC morphology finding Nom (Bld) Normal Normal [facility] Segmented neutrophils/100 WB C Manual cnt (Bld)Ordered By: Shiraz Sherman on 09-21-2022 Segmented neutrophils/100 WBC (Bld) 62 % 50-70 [facility] Serum or plasma anion gap de terminationOrdered By: Shiraz Sherman on 09-21-2022 Anion gap [Moles/Vol] 14.4 mmol/L 6.0-15.0 [facility] [place] [facility] Serum or plasma calcium josh urement (mass/volume)Ordered By: Shiraz Sherman on 09-21-2022 Calcium [Mass/Vol] 10.0 mg/dL 8.2-10.2 [facility] Serum or plasma chloride claus surement (moles/volume)Ordered By: Shiraz Sherman on 09-21-2022 Chloride [Moles/Vol] 99 mmol/L 95-114 [facility] Serum or plasma glucose josh urement (mass/volume)Ordered By: Shiraz Sherman on 09-21-2022 Glucose [Mass/Vol] 270 mg/dL 70-100 [facility] Comment on above: ADA recommended refe rence rangeRandom Glucose Reference Range is dependent on time and content of last meal. Glucose of more than 200 mg/dL in a nonstressed, ambulatory subject supports the diagnosis of Diabetes Mellitus. Serum or plasma potassium me asurement (moles/volume)Ordered By: Shiraz Sherman on 09-21-2022 Potassium [Moles/Vol] 4.9 mmol/L 3.5-5.1 [facility] Serum or plasma sodium measu rement (moles/volume)Ordered By: Shiraz Sherman on 09-21-2022 Sodium [Moles/Vol] 132 mmol/L 136-146 [facility] Serum or plasma total carbon dioxide measurement (moles/volume)Ordered By: Shiraz Sherman on 09-21-2022 CO2 [Moles/Vol] 23.5 mmol/L 22.0-30.0 [facility] Serum or plasma urea nitroge n measurement (mass/volume)Ordered By: Shiraz Sherman on 09-21-2022 Urea nitrogen [Mass/Vol] 20 mg/dL 9- [facility] WBC Auto (Bld) [#/Vol]Ordere d By: Shiraz Sherman on 09-21-2022 WBC (Bld) [#/Vol] 8.4 10*3/uL 3.8-11.6 [facility] POINT OF CARE GLUCOSEon 08-27 Glucose [Mass/Vol] 151 mg/dL Critically high 74-106 [facility] Comment on above: Performed By: #### P OCGLUC #### [facility] [address] [address] [address] Chidi Reyes [id number] 09-11-2022 SARS-CoV-2 (COVID-19) RNA ASHLYE+probe Ql (Unsp spec) Normal [facility] Comment on above: Performed By: #### C OVRB #### [facility] [address] [place], [place] [id number] Judicial Registrar: Phillip Camarena MD SARS-CoV-2 (COVID-19) RNA ASHLEY+probe Ql (Unsp spec) Not detected Normal [facility] Comment on above: Result Comment: The specimen is NEGATIVE for SARS-CoV-2, the novel coronavirus associated with COVID-19. A negative result does not rule out COVID-19. Corrine SARS-CoV-2 for use on the Corrine [employer]8800 [employer] is a real-time RT-PCR test intended for the qualitative detection of nucleic acids from SARS-CoV-2 in clinician-collected nasal, nasopharyngeal, and oropharyngeal swab specimens from individuals who meet COVID-19 clinical and/or epidemiological criteria. Corrine SARS-CoV-2 is for use only under Emergency Use Authorization (EUA) in laboratories certified under Clinical Laboratory Improvement Amendments of 1988 (CLIA), 42 U.S.C. ?263a, that meet requirements to perform high or moderate complexity tests. An individual without symptoms of COVID-19 and who is not shedding SARS-CoV-2 virus would expect to have a negative (not detected) result in this assay. Fact sheet for Healthcare Providers: https://www.fda.gov/media/030798/download Fact sheet for Patients: https://www.fda.gov/media/627586/download METHODOLOGY: RT-PCR Performed By: #### C OVRB #### [facility] [address] [place] [address] Judicial Registrar: Phillip Camarena MD [id number] 09-10-2022 SARS-CoV-2 (COVID-19) RNA ASHLEY+probe Ql (Unsp spec) .NASOPHARYNGEAL SWAB Normal [facility] Comment on above: Performed By: #### C OVRB #### [facility] [address] [place] [address] Judicial Registrar: Phillip Camarena MD POINT OF CARE GLUCOSEon 08-26 Glucose [Mass/Vol] 184 mg/dL Critically high 74-106 [facility] Comment on above: Performed By: #### P OCGLUC ####[facility] [id number] [id number]. Kaciereena Eric POINT OF CARE GLUCOSEon 07-27 Glucose [Mass/Vol] 95 mg/dL Normal 74-106 [facility] Comment on above: Performed By: #### P OCGLUC ####[facility] [id number] [place], [place] [address]Sl. Chidi Reyes Basic Metabolic Panelon 07-27 Anion gap [Moles/Vol] 18 mmol/L High 9 - 17 mmol/L [facility] Calcium [Mass/Vol] 9.6 mg/dL 8.6 - 10. 4 mg/dL [facility] Chloride [Moles/Vol] 98 mmol/L 98 - 10 7 mmol/L [facility] CO2 [Moles/Vol] 22 mmol/L 20 - 31 mmol/L [facility] Creatinine [Mass/Vol] 0.91 mg/dL High 0.50 - 0.90 mg/dL [facility] GFR/1.73 sq M.predicted MDRD (S/P/Bld) [Vol rate/Area] - PINF [facility] Comment on above: Effective Jun 28, 2022 These results are not intended for use in patients <18 years of age. eGFR results are calculated without a race factor using the 2020 CKD-EPI equation. Careful clinical correlation is recommended, particularly when comparing to results calculated using previous equations. The CKD-EPI equation is less accurate in patients with extremes of muscle mass, extra-renal metabolism of creatine, excessive creatine ingestion, or following therapy that affects renal tubular secretion. Glucose [Mass/Vol] 207 mg/dL High 70 - 99 mg/dL [facility] Interpretation and review of laboratory results Abnormal [facility] Potassium [Moles/Vol] 4.8 mmol/L 3.7 - 5.3 mmol/L [facility] Sodium [Moles/Vol] 138 mmol/L 135 - 144 mmol/L [facility] Urea nitrogen (BldV) [Mass/Vol] 28 mg/dL High 6 - 20 mg/dL [facility] Urea nitrogen/Creatinine (Bld) [Mass ratio] 31 High 9 - 20 [facility] CBC with Auto Differentialon 08-06-2022 Absolute Eos # 0.35 [facility] Absolute Immature Granulocyte 0.10 [facility] Absolute Lymph # 3.09 [facility] Absolute [place] # 0.73 [facility] Basophils (Bld) [#/Vol] 0.09 10*3/uL [facility] Basophils/100 WBC (Bld) 1 % 0 - 2 % [facility] Eosinophils/100 WBC (Bld) 4 % 1 - 4 % [facility] Hematocrit (Bld) [Volume fraction] 39.6 % 36.3 - 47.1 % [facility] Hemoglobin (Bld) [Mass/Vol] 12.8 g/dL 11.9 - 15.1 g/dL [facility] Immature granulocytes/100 WBC (Bld) 1 % High 0 [facility] Interpretation and review of laboratory results Abnormal [facility] Lymphocytes/100 WBC (Bld) 36 % 24 - 43 % [facility] MCH (RBC) [Entitic mass] 31.3 pg 25.2 - 33.5 pg [facility] MCHC (RBC) [Mass/Vol] 32.3 g/dL 28.4 - 34.8 g/dL [facility] MCV (RBC) [Entitic vol] 96.8 fL 82.6 - 102.9 fL [facility] Monocytes/100 WBC (Bld) 9 % 3 - 12 % [facility] NRBC Automated 0.0 0.0 per 100 WBC [facility] Platelet distribution width (Bld) [Ratio] 13.2 % 11.8 - 14.4 % [facility] Platelet mean volume (Bld) [Entitic vol] 8.9 fL 8.1 - 13.5 fL [facility] Platelets (Bld) [#/Vol] 368 10*3/uL [facility] RBC (Bld) [#/Vol] 4.09 10*6/uL 3.95 - 5.1 1 m/uL [facility] Segmented neutrophils/100 WBC (Bld) 49 % 36 - 65 % [facility] Segs Absolute 4.20 [facility] WBC (Bld) [#/Vol] 8.6 10*3/uL [facility] D-Dimer, Quantitativeon 07-27 D-Dimer, Quant 0.39 [facility] Comment on above: When combined with a low clinical probability, a D dimer value of <0.50 mg/L FEU is considered negative for DVT and PE (negative predictive value of 98%, sensitivity of 97%). If this test is not being used to help rule out DVT and PE, then the following reference range should be utilized: 0.00 - 0.59 mg/L FEU. The D-Dimer assay is intended for use as an aid in the diagnosis of venous thromboembolism (DVT and PE) and the results should be interpreted in conjunction with the patient's medical history, clinical presentation, and other findings. Elevated levels of D-dimer activity can be seen in any state of coagulation activation and is not recommended in patients with therapeutic dose anticoagulant therapy for >24 hours, fibrinolytic therapy within the previous 7 days, trauma or surgery within the previous 4 weeks, disseminated malignancies, aortic aneurysm, sepsis, severe infections, pneumonia, severe skin infections, liver cirrhosis, advanced age, coronary disease, diabetes, and . A very low percentage of patients with DVT may yield D-dimer results below the cutoff of 0.5 mg/L FEU. This is known to be more prevalent in patients with distal DVT. [facility] Troponinon 08-06-2022 Interpretation and review of laboratory results Abnormal [employer] Troponin, High Sensitivity 20 ng/L High 0 - 14 ng/L [facility] Comment on above: High Sensitivity Troponin values cannot be compared with other Troponin methodologies. Patients with high levels of Biotin oral intake (i.e >5mg/day) may have falsely decreased Troponin levels. Samples collected within 8 hours of biotin intake may require additional information for diagnosis. [employer] Interpretation and review of laboratory results Abnormal [facility] Troponin, High Sensitivity 19 ng/L High 0 - 14 ng/L [facility] Comment on above: High Sensitivity Troponin values cannot be compared with other Troponin methodologies. Patients with high levels of Biotin oral intake (i.e >5mg/day) may have falsely decreased Troponin levels. Samples collected within 8 hours of biotin intake may require additional information for diagnosis. [facility] XR CHEST PORTABLEon 08-06-20 No evidence of acute cardiopulmonary process. Large body habitus. [facility] EXAMINATION: ONE XRAY VIEW OF THE CHEST 08/06/2022 2:55 pm COMPARISON: Frontal view of the chest October 05 2017 and November 23, 2015. HISTORY: ORDERING SYSTEM PROVIDED HISTORY: left anterior rib pain TECHNOLOGIST PROVIDED HISTORY: left anterior rib pain FINDINGS: Mild hypoexpansion of the lung carlos, likely related to the patient's body habitus, which also causes decreased x-ray penetration. The heart is within limits of normal for size. No evidence of pneumothorax, pleural effusion, infiltrate, or abnormal lung mass. The left lateral ribs are somewhat less than optimally defined due to the overlying soft tissue density and the overlying scapula. Pain modulator device is present over the lower thoracic spine. [facility] Cristina English MD - 08/06/2022 EXAMINATION: ONE XRAY VIEW OF THE CHEST 08/06/2022 2:55 pm COMPARISON: Frontal view of the chest October 05 2017 and November 23, 2015. HISTORY: ORDERING SYSTEM PROVIDED HISTORY: left anterior rib pain TECHNOLOGIST PROVIDED HISTORY: left anterior rib pain FINDINGS: Mild hypoexpansion of the lung carlos, likely related to the patient's body habitus, which also causes decreased x-ray penetration. The heart is within limits of normal for size. No evidence of pneumothorax, pleural effusion, infiltrate, or abnormal lung mass. The left lateral ribs are somewhat less than optimally defined due to the overlying soft tissue density and the overlying scapula. Pain modulator device is present over the lower thoracic spine. IMPRESSION: No evidence of acute cardiopulmonary process. Large body habitus. [employer] Phone: Radiology Study observation (narrative) [employer] Phone: XR CHEST PORTABLEOrdered By: Cristina English on 08-06-2022 [employer] Phone: LIVERon 08-04-2022 Liver shows increase d echogenicity suggesting hepatic steatosis without focal lesion. With otherwise unremarkable exam [facility] EXAMINATION: RIGHT UPPER QUADRANT ULTRASOUND 08/04/2022 1:55 pm COMPARISON: None. HISTORY: ORDERING SYSTEM PROVIDED HISTORY: Colon cancer screening FINDINGS: LIVER: Liver shows increased echogenicity suggesting hepatic steatosis without focal lesion. BILIARY SYSTEM: Gallbladder is unremarkable without evidence of pericholecystic fluid, wall thickening or stones. Negative sonographic Cortes's sign. Common bile duct is within normal limits measuring 6 mm. RIGHT KIDNEY: The right kidney is grossly unremarkable without evidence of hydronephrosis. PANCREAS: Visualized portions of the pancreas are unremarkable. OTHER: No evidence of right upper quadrant ascites. [facility] Ruddy Mallory DO - 08/04/2022 EXAMINATION: RIGHT UPPER QUADRANT ULTRASOUND 08/04/2022 1:55 pm COMPARISON: None. HISTORY: ORDERING SYSTEM PROVIDED HISTORY: Colon cancer screening FINDINGS: LIVER: Liver shows increased echogenicity suggesting hepatic steatosis without focal lesion. BILIARY SYSTEM: Gallbladder is unremarkable without evidence of pericholecystic fluid, wall thickening or stones. Negative sonographic Cortes's sign. Common bile duct is within normal limits measuring 6 mm. RIGHT KIDNEY: The right kidney is grossly unremarkable without evidence of hydronephrosis. PANCREAS: Visualized portions of the pancreas are unremarkable. OTHER: No evidence of right upper quadrant ascites. IMPRESSION: Liver shows increased echogenicity suggesting hepatic steatosis without focal lesion. With otherwise unremarkable exam [facility] Work Phone: Radiology Study observation (narrative) [facility] [employer] Work Phone: US LIVEROrdered By: Ruddy choi on 08-04-2022 [facility] [employer] Work Phone: Ceruloplasminon 07-20-2022 Ceruloplasmin 22 mg/dL 16 - 45 mg/dL [facility] Hepatitis B Surface Antibody on 07-20-2022 HBV surface Ab (S) [Titer] <3.50 NINF [facility] Comment on above: REFERENCE RANGE: <10.0 NON-REACTIVE/NOT IMMUNE >=10.0 REACTIVE/IMMUNE [facility] [employer] CBC with Auto Differentialon 07-19-2022 Absolute Eos # 0.32 [facility] Absolute Immature Granulocyte 0.07 [facility] Absolute Lymph # 3.05 [facility] Absolute [place] # 0.53 [facility] RS [facility] Basophils (Bld) [#/Vol] 0.06 10*3/uL [facility] Basophils/100 WBC (Bld) 1 % 0 - 2 % [facility] Eosinophils/100 WBC (Bld) 4 % 1 - 4 % [facility] Hematocrit (Bld) [Volume fraction] 38.1 % 36.3 - 47.1 % [facility] Hemoglobin (Bld) [Mass/Vol] 11.9 g/dL 11.9 - 15.1 g/dL [facility] Immature granulocytes/100 WBC (Bld) 1 % High 0 [facility] Interpretation and review of laboratory results Abnormal [facility] Lymphocytes/100 WBC (Bld) 40 % 24 - 43 % [facility] MCH (RBC) [Entitic mass] 31.1 pg 25.2 - 33.5 pg [facility] MCHC (RBC) [Mass/Vol] 31.2 g/dL 28.4 - 34.8 g/dL [facility] MCV (RBC) [Entitic vol] 99.5 fL 82.6 - 102.9 fL [facility] Monocytes/100 WBC (Bld) 7 % 3 - 12 % [facility] NRBC Automated 0.0 0.0 per 100 WBC [facility] Platelet distribution width (Bld) [Ratio] 13.7 % 11.8 - 14.4 % [facility] Platelet mean volume (Bld) [Entitic vol] 8.9 fL 8.1 - 13.5 fL [facility] Platelets (Bld) [#/Vol] 357 10*3/uL [facility] RBC (Bld) [#/Vol] 3.83 10*6/uL Low 3.95 - 5.1 1 m/uL [facility] Segmented neutrophils/100 WBC (Bld) 47 % 36 - 65 % [facility] Segs Absolute 3.61 [facility] WBC (Bld) [#/Vol] 7.6 10*3/uL [facility] Comprehensive Metabolic Pane l with Bilirubinon 07-19-2022 Albumin [Mass/Vol] 4.6 g/dL 3.5 - 5.2 g/dL [facility] Albumin/Globulin [Mass ratio] 1.8 {ratio} 1.0 - 2.5 [facility] ALP (Bld) [Catalytic activity/Vol] 53 U/L 35 - 104 U/L [facility] ALT [Catalytic activity/Vol] 36 U/L High 5 - 33 U/L [facility] Anion gap [Moles/Vol] 13 mmol/L 9 - 17 mmol/L [facility] AST [Catalytic activity/Vol] 37 U/L High NINF - 32 U/L [facility] Bilirubin [Mass/Vol] 0.2 mg/dL Low 0.3 - 1 .2 mg/dL [facility] Bilirubin, Indirect Can not be calculated 0.00 - 1.00 mg/dL [facility] Bilirubin.indirect [Mass/Vol] mg/dL NINF - 0.31 mg/dL [facility] Calcium [Mass/Vol] 9.2 mg/dL 8.6 - 10. 4 mg/dL [facility] Chloride [Moles/Vol] 102 mmol/L 98 - 10 7 mmol/L [facility] CO2 [Moles/Vol] 24 mmol/L 20 - 31 mmol/L [facility] Creatinine [Mass/Vol] 0.88 mg/dL 0.50 - 0.90 mg/dL [facility] GFR/1.73 sq M.predicted MDRD (S/P/Bld) [Vol rate/Area] - PINF [facility] Comment on above: Effective Jun 28, 2022 These results are not intended for use in patients <18 years of age. eGFR results are calculated without a race factor using the 2020 CKD-EPI equation. Careful clinical correlation is recommended, particularly when comparing to results calculated using previous equations. The CKD-EPI equation is less accurate in patients with extremes of muscle mass, extra-renal metabolism of creatine, excessive creatine ingestion, or following therapy that affects renal tubular secretion. Glucose [Mass/Vol] 116 mg/dL High 70 - 99 mg/dL [facility] Interpretation and review of laboratory results Abnormal [facility] Potassium [Moles/Vol] 4.9 mmol/L 3.7 - 5.3 mmol/L [facility] Protein [Mass/Vol] 7.2 g/dL 6.4 - 8.3 g/dL [facility] Sodium [Moles/Vol] 139 mmol/L 135 - 144 mmol/L [facility] Urea nitrogen (BldV) [Mass/Vol] 28 mg/dL High 6 - 20 mg/dL [facility] POINT OF CARE GLUCOSEon 07- Glucose [Mass/Vol] 106 mg/dL Normal 74-106 [facility] Comment on above: Performed By: #### P OCGLUC #### [facility] [address] [address] [address] Chidi Reyes VL LOWER EXTREMITY ARTERIAL SEGMENTAL PRESSURES W PPGon 04-01-2022 Ruddy Mallory DO - 04/01/2022 [facility] Vascular Lower Arterial Plethysmography Procedure Patient Name TIMMY Date of Study 03/31/2022 RISA Cooper Date of 1975 Gender Female Age 47 year(s) Race Room Number Corporate ID [id number] # Patient Acct [id number] # MR # [id number] Operations Officer Vicki Spicer RVT Interpreting Physician Ruddy Mallory DO Referring Referring Physician Vivian Oseguera Nurse Practitioner Procedure Type of Study: Extremities Arteries: Lower Arterial Plethysmography, PVR Lower. Indications for Study:Claudication. Patient Status:Out Patient. Technical Quality:Adequate visualization. Comments:Simultaneous real time imaging utilizing B-Mode, color doppler and spectral waveform analysis was performed on the bilateral lower extremities for arterial examination. Conclusions Summary Mild PAD suggested Left lower extremity Signature Findings: Right Impression: Left Impression: PVR waveforms are normal. PVR waveforms are normal. Doppler waveforms are normal. Doppler waveforms are normal. Ankle pressures are normal with Ankle pressures are mildly abnormal ABIs of 0.96 and 0.94. with ABIs of 0.90 and 0.87. Toe pressures are normal. Toe pressures are normal. Allergies - Allergy:Penicillin(Drug ). Velocities are measured in cm/s ; Diameters are measured in cm Pressures + ++----- ---+-----+----+-------- +----- + ! !!Right ! !Left! ! ! + ++----- ---+-----+----+-------- +----- + !Location !!Pressure!Ratio! !Pressure!Ratio! + ++----- ---+-----+----+-------- +----- + !Ankle PT !!128 !0.96 ! !121 !0.9 ! + ++----- ---+-----+----+-------- +----- + !Ankle DP !!126 !0.94 ! !117 !0.87 ! + ++----- ---+-----+----+-------- +----- + !Great Toe !!114 !0.85 ! !107 !0.8 ! + ++----- ---+-----+----+-------- +----- + - Brachial Pressure:Right: 134.Left:128. - MARY:Right: 0.96.Left: 0.9. Plethysmographic Digit Evaluation +---------++--------+-- ---+ ++-- ------+-----+ ------ + ! !!Right ! !Left !! ! ! ! +---------++--------+-- ---+ ++-- ------+-----+ ------ + !Location !!Pressure!Ratio!PPG Wave Form !!Pressure!Ratio!PPG Wave Form ! +---------++--------+-- ---+ ++-- ------+-----+ ------ + !Great Toe!!114 !0.85 ! !!107 !0.8 ! ! +---------++--------+-- ---+ ++-- ------+-----+ ------ + [employer] Phone: VL LOWER EXTREMITY ARTERIAL SEGMENTAL PRESSURES W PPGOrdered By: Ruddy Mallory on 04-01-2022 [employer] Phone: VL LOWER EXTREMITY ARTERIAL SEGMENTAL PRESSURES W PPGon 03-31-2022 Radiology Study observation (narrative) [employer] Phone: Creatine Kinaseon 03-02-2022 CK [Catalytic activity/Vol] 274 U/L High 22-269 [facility] Comment on above: Result Comment: PERF ORMED BY: [place] [id number] PATHOLOGIST PAPER SPOOLER GRZEGORZ DUMONT M.D. Performed By: #### C K #### [facility] [address] [place] [address] #### SJOGRENS #### [facility] , Sjogrens Anti-SSA/SSBon SS-A/Ro Sjogrens Antibody <0.2 Normal 0.0-0.9 [facility] Comment on above: Performed By: #### C K #### [facility] [address] [place] [address] [place] #### SJOGRENS #### [facility] , SS-B/La Sjogrens Antibody <0.2 Normal 0.0-0.9 [facility] Comment on above: Result Comment: Perf ormed at: - [facility] [address] [id number] Judicial Registrar: Chandana Oliveros PhD, Phone: [phone] PERFORMED BY: [place] [address] PATHOLOGIST PAPER SPOOLER GRZEGORZ DUMONT M.D. Performed By: #### C K #### [facility] [address] [place] [address] [place] #### SJOGRENS #### [facility] , XR hand BI 2Von 03-02-2022 XR hand BI 2V [facility] [address] [address] [place] [address] XRay Report Signed Patient: Risa Warner MR#: [id number] 52 : 1975 Acct:[id number] Age/Sex: 47 / F ADM Date: 03/02/22 Loc: ICXD Room: Type: [facility] Attending Dr: Tyree Hidalgo MD Ordering Provider: Tyree Hidalgo MD Date of Service: 03/02/22 XR/XR hand BI 2V: pain Copies to: Tyree Hidalgo MD 2 viewsboth handsplain film COMPARISON:None HISTORY:Multiple regions of joint pain in the hands. No bony erosion. There are mild interphalangeal degenerative changes. No bony lesion. No fracture or dislocation. No soft tissue calcification. 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 Impression dictated by: Edwin White M.D.03/02/2022 4:09 PM Dictation Location: [place] [address] Transcribed By: [facility] 03/02/22 1609 Dictated By: Edwin White DO 03/02/22 1608 Signed By: 03/02/22 1609 Normal [facility] MARISOL DIGITAL SCREEN BILA TERALOrdered By: Vivian Oseguera on 05-15-2021 No mammographic evidence of malignancy. BI-RADS 1 BIRADS: BIRADS - CATEGORY 1 Negative, no evidence of malignancy. Normal interval follow-up is recommended in 12 months. OVERALL ASSESSMENT - NEGATIVE A letter of notification will be sent to the patient regarding the results. The [employer] recommends annual mammograms for women 40 years and older. [employer] Phone: EXAMINATION: SCREENI NG DIGITAL BILATERAL MAMMOGRAM WITH TOMOSYNTHESIS, 05/15/2021 TECHNIQUE: Screening mammography was performed with tomosynthesis including MLO and CC views of the bilateral breasts. Computer aided detection was used for the interpretation of this exam. COMPARISON: 03/12/2016 HISTORY: Screening. FINDINGS: The breast tissue is composed of scattered fibroglandular tissue. There is no suspicious mass, suspicious microcalcification, or area of architectural distortion. [employer] Work Phone: [employer] Work Phone: US FIBROSCANon 04-14-2021 US FIBROSCAN Velocity Controlled Transient Elastography (Fibroscan) Coupon Clerk: Ameena Crisostomo Attending: Leah Martins MD ? Patient was identified via name and . Risa Warner presents to endoscopy suite for VCTE. ? Referring Physician: Claudia Willett Diagnosis: Abnormal LFT's ? Probe Used: M ? Pre-procedure Checklist: ? Presence of ascites: No Fasting for at least two hours: Yes Alcohol Use: No History of heart failure: No ? Findings: ? Median kPa: 7.6 IQR/med (%): 10 ? Controlled Attenuation Paramater (CAP) Median (dB/m): 350 IQR (%): 10 ? Interpretation: Appropriate reading, Based on LSM of 7.6 Kpa, Fibrosis stage I-II (F1-2) Based on CAP of 350 db/M, Mod-Severe Steatosis (>33%) S2-3. Clinical correlation indicated Leah Martins MD [facility] Interpreted by: Leah Martins MD Signed by: Leah Martins MD 04/14/21 Final result Normal [facility] FerritinOrdered By: Claudia Willett on 03-12-2021 Ferritin 199 ug/L High 13 - 150 ug/L [employer] Phone: Iron and TIBCOrdered By: Carmen Willett on 03-12-2021 Iron [Mass/Vol] 71 ug/dL 37 - 145 ug/dL [employer] Work Phone: Iron Saturation 17 % Low 20 - 55 % [facility] [facility] [facility] Work Phone: TIBC 412 ug/dL 250 - 450 ug/dL [employer] Work Phone: UIBC 341 ug/dL 112 - 347 ug/dL [employer] Phone: No Panel InformationOrdered By: Claudia Willett on 03-12-2021 Interpretation and review of laboratory results Abnormal [employer] Phone: [employer] Phone: CBCOrdered By: Claudia Willett on 03-11-2021 Hematocrit (Bld) [Volume fraction] 45.2 % 36.3 - 47.1 % [employer] Phone: Hemoglobin.gastrointes tinal spec 1 Ql (Stl) 14.1 g/dL 11.9 - 15.1 g/dL [employer] Phone: MCH (RBC) [Entitic mass] 30.2 pg 25.2 - 33.5 pg [employer] Phone: MCHC (RBC) [Mass/Vol] 31.2 g/dL 28.4 - 34.8 g/dL [employer] Phone: MCV (RBC) [Entitic vol] 96.8 fL 82.6 - 102.9 fL [employer] Phone: NRBC Automated 0.0 0.0 per 100 WBC [employer] Phone: Platelet distribution width (Bld) [Ratio] 12.5 % 11.8 - 14.4 % [employer] Phone: Platelet mean volume (Bld) [Entitic vol] 9.0 fL 8.1 - 13.5 fL [employer] Phone: Platelets (Bld) [#/Vol] 372 10*3/uL [employer] Phone: RBC (Bld) [#/Vol] 4.67 10*6/uL 3.95 - 5.1 1 m/uL [employer] Phone: WBC (Bld) [#/Vol] 7.5 10*3/uL [employer] Phone: [employer] Phone: Comprehensive Metabolic Pane lOrdered By: Claudia Willett on 03-11-2021 Albumin [Mass/Vol] 4.6 g/dL 3.5 - 5.2 g/dL [employer] Phone: Albumin/Globulin [Mass ratio] 1.8 {ratio} [employer] Phone: ALP (Bld) [Catalytic activity/Vol] 88 U/L 35 - 104 U/L [employer] Phone: ALT [Catalytic activity/Vol] 52 U/L High 5 - 33 U/L [employer] Phone: Anion gap [Moles/Vol] 12 mmol/L 9 - 17 mmol/L [employer] Phone: AST [Catalytic activity/Vol] 45 U/L High <32 [employer] Phone: Bilirubin [Mass/Vol] 0.32 mg/dL 0.3 - 1 .2 mg/dL [employer] Phone: Calcium [Mass/Vol] 9.8 mg/dL 8.6 - 10. 4 mg/dL [employer] Phone: Chloride [Moles/Vol] 102 mmol/L 98 - 10 7 mmol/L [employer] Phone: CO2 [Moles/Vol] 25 mmol/L 20 - 31 mmol/L [employer] Phone: Creatinine [Mass/Vol] 0.68 mg/dL 0.50 - 0.90 mg/dL [employer] Phone: Free PSA/Total PSA [Mass fraction] 7.2 g/dL 6.4 - 8.3 g/dL [employer] Phone: GFR >60 >60 mL/min [employer] Work Phone: GFR Non- >60 >60 mL/min [employer] Work Phone: Glucose [Mass/Vol] 231 mg/dL High 70 - 99 mg/dL [employer] Work Phone: Interpretation and review of laboratory results Abnormal [facility] Work Phone: Potassium [Moles/Vol] 4.7 mmol/L 3.7 - 5.3 mmol/L [employer] Work Phone: Sodium [Moles/Vol] 139 mmol/L 135 - 144 mmol/L [employer] Phone: Urea nitrogen (BldV) [Mass/Vol] 24 mg/dL High 6 - 20 mg/dL [employer] Work Phone: Urea nitrogen/Creatinine (Bld) [Mass ratio] 35 High [facility] Work Phone: [employer] Work Phone: Hepatitis B Core Antibody, T otalOrdered By: Claudia Willett on 03-11-2021 Hep B Core Total Ab Non-Reactive NONREACTIVE [facility] [employer] Work Phone: Hepatitis B Surface AntigenO rdered By: Claudia iWllett on 03-11-2021 Hepatitis B Surface Ag Non-Reactive NONREACTIVE [facility] Work Phone: Hepatitis C AntibodyOrdered By: Claudia Willett on 03-11-2021 Hepatitis C Ab Non-Reactive NONREACTIVE [employer] [facility] [facility] Work Phone: Comment on above: The hepatitis C procedure used in our laboratory is a Chemiluminescent test specific for three recombinant HCV antigens. A negative anti-HCV result indicates that the antibodies to hepatitis C virus are not present at this time. Individuals with reactive anti-HCV should be considered infected and infectious until proven otherwise. Confirmation of all equivocal or reactive results is recommended by ordering HCV RNA by PCR. Laboratory - Chemistry and C hemistry - challengeOrdered By: Claudia Willett on 03-11-2021 GFR/1.73 sq M.predicted MDRD (S/P/Bld) [Vol rate/Area] [employer] Phone: Comment on above: Average GFR for 40-4 9 years old: 99 mL/min/1.73sq m Chronic Kidney Disease: <60 mL/min/1.73sq m Kidney failure: <15 mL/min/1.73sq m eGFR calculated using average adult body mass. Additional eGFR calculator available at: http://www.Libratone/multiple_crcl_2012.htm Stage 1: Some kidney damage normal GFR Stage 2: Mild kidney damage GFR 60-89 Stage 3: Moderate kidney damage GFR 30-59 Stage 4: Severe kidney damage GFR 15-29 Stage 5: Severe kidney damage GFR <15 ESRD - chronic treatment by dialysis or transplant No Panel InformationOrdered By: Claudia Willett on 03-11-2021 [employer] Phone: Hepatic Function PanelOrdere d By: Vivian Oseguera on 02-09-2021 Albumin [Mass/Vol] 4.3 g/dL 3.5 - 5.2 g/dL [employer] Phone: Albumin/Globulin [Mass ratio] 1.3 {ratio} [employer] Phone: ALP (Bld) [Catalytic activity/Vol] 102 U/L 35 - 104 U/L [employer] Phone: ALT [Catalytic activity/Vol] 34 U/L High 5 - 33 U/L [employer] Phone: AST [Catalytic activity/Vol] 24 U/L <32 [employer] Phone: Bilirubin [Mass/Vol] 0.24 mg/dL Low 0.3 - 1 .2 mg/dL [employer] Phone: Bilirubin, Indirect CANNOT BE CALCULATED 0.00 - 1.00 mg/dL [employer] Phone: Bilirubin.indirect [Mass/Vol] mg/dL <0.31 mg/dL [employer] Phone: Free PSA/Total PSA [Mass fraction] 7.5 g/dL 6.4 - 8.3 g/dL [employer] Work Phone: Globulin NOT REPORTED 1.5 - 3.8 g/dL [employer] Work Phone: Interpretation and review of laboratory results Abnormal [employer] Work Phone: [employer] Work Phone: Urinalysis with MicroscopicO rdered By: Meghan León on 01-28-2021 - [employer] Work Phone: Amorphous, UA NOT REPORTED None [facility] Work Phone: Bacteria, UA 2+ Abnormal None [employer] Work Phone: Bilirubin Urine Negative NEGATIVE [facility] Work Phone: Casts UA NOT REPORTED /LPF [facility] Work Phone: Color, UA YELLOW YELLOW [employer] Work Phone: Crystals, UA NOT REPORTED None /HPF [facility] Work Phone: Epithelial Cells UA 2 TO 5 [employer] Work Phone: Glucose, Ur 1+ Abnormal NEGATIVE [employer] Work Phone: Interpretation and review of laboratory results Abnormal [employer] Work Phone: Ketones Ql (U) Negative NEGATIVE [facility] Work Phone: Leukocyte esterase Test strip Ql (U) Negative NEGATIVE [employer] Work Phone: Mucus, UA NOT REPORTED None [employer] Work Phone: Nitrite, Urine Negative NEGATIVE [facility] Work Phone: Other Observations UA NOT REPORTED NOT REQ. M [facility] [employer] Work Phone: pH, UA 6.0 [facility] Work Phone: Protein, UA Negative NEGATIVE [facility] [employer] Phone: RBC, UA 0 TO 2 [facility] Work Phone: Renal Epithelial, UA NOT REPORTED 0 /HPF [facility] [employer] Work Phone: Specific [place], UA >1.030 High [facility] [employer] Phone: Trichomonas, UA NOT REPORTED None [facility] Work Phone: Turbidity UA CLEAR CLEAR [facility] Work Phone: Urinalysis Comments NOT REPORTED [facility] [employer] Work Phone: Urine Hgb Negative NEGATIVE [facility] Phone: Urobilinogen, Urine Normal Normal [facility] [employer] Phone: WBC, UA 0 TO 2 [facility] [employer] Phone: Yeast, UA NOT REPORTED None [facility] Phone: XR ABDOMEN (KUB) (SINGLE AP VIEW)Ordered By: Meghan León on 01-27-2021 Suggestion of a very small calcification over the lower pole of the left kidney. Probable hepatomegaly. No evidence of obstructive bowel process. [employer] Phone: EXAMINATION: ONE SUP INE XRAY VIEW(S) OF THE ABDOMEN 01/27/2021 1:08 pm COMPARISON: Two-view plain film imaging of the abdomen January 25, 2020. HISTORY: ORDERING SYSTEM PROVIDED HISTORY: Renal stones TECHNOLOGIST PROVIDED HISTORY: renal stone FINDINGS: Nonobstructive bowel gas pattern. Some degenerative changes are present in the SI joints. Suggestion of a 2 mm diameter calcification over the lower pole of the left kidney. Bra clips are apparent. The liver appears enlarged. A Tens unit is present over the thoracolumbar spine with battery pack over the left iliac wing. [employer] Phone: Vitaly, Mh[employer] Incoming Radiant Results From [employer] - 01/27/2021 1:29 PM EDT EXAMINATION: ONE SUPINE XRAY VIEW(S) OF THE ABDOMEN 01/27/2021 1:08 pm COMPARISON: Two-view plain film imaging of the abdomen January 25, 2020. HISTORY: ORDERING SYSTEM PROVIDED HISTORY: Renal stones TECHNOLOGIST PROVIDED HISTORY: renal stone FINDINGS: Nonobstructive bowel gas pattern. Some degenerative changes are present in the SI joints. Suggestion of a 2 mm diameter calcification over the lower pole of the left kidney. Bra clips are apparent. The liver appears enlarged. A Tens unit is present over the thoracolumbar spine with battery pack over the left iliac wing. IMPRESSION: Suggestion of a very small calcification over the lower pole of the left kidney. Probable hepatomegaly. No evidence of obstructive bowel process. [employer] Phone: CT LUMBAR SPINE W CONTRASTOr dered By: Corey Cleveland on 01-20-2021 Shallow disc bulges at L4-5 and L5-S1. No significant focal disc protrusion or stenosis is appreciated. Spinal stimulator device. [employer] Phone: EXAMINATION: CT OF T HE LUMBAR SPINE WITH CONTRAST, 01/20/2021 12:59 pm TECHNIQUE: CT of the lumbar spine was performed with the administration of epidural and intrathecal contrast. Multiplanar reformatted images are provided for review. Dose modulation, iterative reconstruction, and/or weight based adjustment of the mA/kV was utilized to reduce the radiation dose to as low as reasonably achievable. COMPARISON: CT lumbar spine 01/28/2014 HISTORY: ORDERING SYSTEM PROVIDED HISTORY: DDD (degenerative disc disease), lumbar TECHNOLOGIST PROVIDED HISTORY: Myelogram FINDINGS: BONES/ALIGNMENT: There is normal alignment of the spine. The vertebral body heights are maintained. No osseous destructive lesion is seen. No acute fracture is identified. Spinal stimulator device is noted. Two series were acquired one with thecal contrast and one with epidural injection of contrast. SOFT TISSUES: No paraspinal mass is seen. No area of abnormal contrast enhancement. L1-L2: There is no significant disc protrusion, central spinal canal stenosis or neural foraminal narrowing. L2-L3: There is no significant disc protrusion, central spinal canal stenosis or neural foraminal narrowing. L3-L4: There is no significant disc protrusion, central spinal canal stenosis or neural foraminal narrowing. L4-L5: Shallow disc bulge flattens the thecal sac. Mild facet hypertrophy is noted. L5-S1: Annular disc bulge flattens the thecal sac. No significant focal disc protrusion is detected. [employer] Phone: [employer], [employer] Incoming Radiant Results From [employer] - 01/20/2021 3:43 PM EDT EXAMINATION: CT OF THE LUMBAR SPINE WITH CONTRAST, 01/20/2021 12:59 pm TECHNIQUE: CT of the lumbar spine was performed with the administration of epidural and intrathecal contrast. Multiplanar reformatted images are provided for review. Dose modulation, iterative reconstruction, and/or weight based adjustment of the mA/kV was utilized to reduce the radiation dose to as low as reasonably achievable. COMPARISON: CT lumbar spine 01/28/2014 HISTORY: ORDERING SYSTEM PROVIDED HISTORY: DDD (degenerative disc disease), lumbar TECHNOLOGIST PROVIDED HISTORY: Myelogram FINDINGS: BONES/ALIGNMENT: There is normal alignment of the spine. The vertebral body heights are maintained. No osseous destructive lesion is seen. No acute fracture is identified. Spinal stimulator device is noted. Two series were acquired one with thecal contrast and one with epidural injection of contrast. SOFT TISSUES: No paraspinal mass is seen. No area of abnormal contrast enhancement. L1-L2: There is no significant disc protrusion, central spinal canal stenosis or neural foraminal narrowing. L2-L3: There is no significant disc protrusion, central spinal canal stenosis or neural foraminal narrowing. L3-L4: There is no significant disc protrusion, central spinal canal stenosis or neural foraminal narrowing. L4-L5: Shallow disc bulge flattens the thecal sac. Mild facet hypertrophy is noted. L5-S1: Annular disc bulge flattens the thecal sac. No significant focal disc protrusion is detected. IMPRESSION: Shallow disc bulges at L4-5 and L5-S1. No significant focal disc protrusion or stenosis is appreciated. Spinal stimulator device. [employer] Phone: Lipid Panelon 08-13-2020 Cholesterol [Mass/Vol] 127 mg/dL <200 [facility], [place] Comment on above: Cholesterol Guidelines: <200 Desirable 200-240 Borderline >240 Undesirable Cholesterol in HDL [Mass/Vol] 28 mg/dL Low >40 [place], [place] Comment on above: HDL Guidelines: <40 Undesirable 40-59 Borderline >59 Desirable Cholesterol in LDL [Mass/Vol] 31 mg/dL 0 - 130 mg/dL [place], [place] Comment on above: LDL Guidelines: <100 Desirable 100-129 Near to/above Desirable 130-159 Borderline >159 Undesirable Direct (measured) LDL and calculated LDL are not interchangeable tests. Cholesterol in VLDL [Mass/Vol] NOT REPORTED High 1 - 30 mg/dL [place], [place] Cholesterol.total/Chol esterol in HDL [Mass ratio] 4.5 {ratio} <5 [place], [place] Interpretation and review of laboratory results Abnormal [place] Triglyceride [Mass/Vol] 340 mg/dL High <150 [place], [place] Comment on above: Triglyceride Guidelines: <150 Desirable 150-199 Borderline 200-499 High >499 Very high Based on AHA Guidelines for fasting triglyceride, June 2012. CT HEAD WO CONTRASTon 2019 No acute intracrania l abnormality. [place], [place] EXAMINATION: CT OF T HE HEAD WITHOUT CONTRAST 07/25/2020 11:38 am TECHNIQUE: CT of the head was performed without the administration of intravenous contrast. Dose modulation, iterative reconstruction, and/or weight based adjustment of the mA/kV was utilized to reduce the radiation dose to as low as reasonably achievable. COMPARISON: None. HISTORY: ORDERING SYSTEM PROVIDED HISTORY: Traumatic injury of head, initial encounter TECHNOLOGIST PROVIDED HISTORY: pain Is the patient ?->No FINDINGS: BRAIN/VENTRICLES: There is no acute intracranial hemorrhage, mass effect or midline shift. No abnormal extra-axial fluid collection. The conner-white differentiation is maintained without evidence of an acute infarct. There is no evidence of hydrocephalus. ORBITS: The visualized portion of the orbits demonstrate no acute abnormality. SINUSES: The visualized paranasal sinuses and mastoid air cells demonstrate no acute abnormality. SOFT TISSUES/SKULL: No acute abnormality of the visualized skull or soft tissues. [place], [place] [employer] Incoming Radiant Results From [employer] - 07/25/2020 12:02 PM EDT EXAMINATION: CT OF THE HEAD WITHOUT CONTRAST 07/25/2020 11:38 am TECHNIQUE: CT of the head was performed without the administration of intravenous contrast. Dose modulation, iterative reconstruction, and/or weight based adjustment of the mA/kV was utilized to reduce the radiation dose to as low as reasonably achievable. COMPARISON: None. HISTORY: ORDERING SYSTEM PROVIDED HISTORY: Traumatic injury of head, initial encounter TECHNOLOGIST PROVIDED HISTORY: pain Is the patient ?->No FINDINGS: BRAIN/VENTRICLES: There is no acute intracranial hemorrhage, mass effect or midline shift. No abnormal extra-axial fluid collection. The conner-white differentiation is maintained without evidence of an acute infarct. There is no evidence of hydrocephalus. ORBITS: The visualized portion of the orbits demonstrate no acute abnormality. SINUSES: The visualized paranasal sinuses and mastoid air cells demonstrate no acute abnormality. SOFT TISSUES/SKULL: No acute abnormality of the visualized skull or soft tissues. IMPRESSION: No acute intracranial abnormality. [place], [place] XR ABDOMEN (KUB) (SINGLE AP VIEW)on 01-25-2020 1. No renal or urete ral calculi identified. 2. Mild constipation. [place] EXAMINATION: ONE SUP INE XRAY VIEW(S) OF THE ABDOMEN 01/25/2020 1:52 pm COMPARISON: 03/25/2019 HISTORY: ORDERING SYSTEM PROVIDED HISTORY: Renal stones TECHNOLOGIST PROVIDED HISTORY: renal stone FINDINGS: Spinal canal stimulator device is in place. No additional lines or tubes. No renal or ureteral calculi identified. No gaseous distended loops of small bowel or air-fluid levels. No free air or pneumatosis. Mild gas and stool burden is seen throughout the colon and rectum. No acute osseous abnormality. [place] [employer] Incoming Radiant Results From [employer] - 01/25/2020 10:09 PM EDT EXAMINATION: ONE SUPINE XRAY VIEW(S) OF THE ABDOMEN 01/25/2020 1:52 pm COMPARISON: 03/25/2019 HISTORY: ORDERING SYSTEM PROVIDED HISTORY: Renal stones TECHNOLOGIST PROVIDED HISTORY: renal stone FINDINGS: Spinal canal stimulator device is in place. No additional lines or tubes. No renal or ureteral calculi identified. No gaseous distended loops of small bowel or air-fluid levels. No free air or pneumatosis. Mild gas and stool burden is seen throughout the colon and rectum. No acute osseous abnormality. IMPRESSION: 1. No renal or ureteral calculi identified. 2. Mild constipation. [place], [place] C-Reactive Proteinon 04-2 020 CRP [Mass/Vol] 2.8 mg/L 0 - 5 mg/L [place], [place] CKon 12-28-2019 Total CK 107 U/L 26 - 192 U/L [place], [place] Hemoglobin A1Con 12-28-2019 Glucose [Mass/Vol] 263 mg/dL [place], [place] Comment on above: The ADA and AACC rec ommend providing the estimated average glucose result to permit better patient understanding of their HBA1c result. HbA1c (Bld) [Mass fraction] 10.8 % High 4.8 - 5.9 % [place], [place] Interpretation and review of laboratory results Abnormal [place] IgAon 12-28-2019 IgA [Mass/Vol] 225 mg/dL 70 - 400 mg/dL [place] IgGon 12-28-2019 IgG [Mass/Vol] 768 mg/dL 700 - 1600 mg/dL [place] IgMon 12-28-2019 IgM [Mass/Vol] 97 mg/dL 40 - 230 mg/dL [place] Lactate Dehydrogenaseon 04-0 LD 151 U/L 135 - 214 U/L [place] Sedimentation Rateon 020 Sed Rate 14 mm 0 - 20 mm [place] T4on 12-28-2019 T4, Total 6.7 ug/dL 4.5 - 12 ug/dL [place] T4, Freeon 12-28-2019 Thyroxine, Free 1.02 ng/dL 0.93 - 1.7 ng/dL [place] TSH without Reflexon 020 TSH Qn 0.70 m[IU]/L [place], [place] ALTOrdered By: Flip gomez n 10-18-2019 ALT [Catalytic activity/Vol] 26 U/L 5 - 33 U/L [facility] [employer] Phone: ASTOrdered By: Flip izquierdo 10-18-2019 AST [Catalytic activity/Vol] 20 U/L <32 [facility] Phone: AmylaseOrdered By: Flip vernon on 10-18-2019 Amylase [Catalytic activity/Vol] 45 U/L 28 - 100 U/L [employer] Phone: Basic Metabolic PanelOrdered By: Flip Dodson on 10-18-2019 Anion gap [Moles/Vol] 17 mmol/L 9 - 17 mmol/L [employer] Phone: Bun/Cre Ratio 25 High [employer] Work Phone: Calcium [Mass/Vol] 9.6 mg/dL 8.6 - 10. 4 mg/dL [employer] Phone: Chloride [Moles/Vol] 96 mmol/L Low 98 - 10 7 mmol/L [employer] Phone: CO2 [Moles/Vol] 22 mmol/L 20 - 31 mmol/L [employer] Phone: Creatinine [Mass/Vol] 0.63 mg/dL 0.5 - 0.9 mg/dL [employer] Phone: GFR >60 >60 mL/min [employer] Phone: GFR Comment [employer] Phone: Comment on above: Average GFR for 40-4 9 years old: 99 mL/min/1.73sq m Chronic Kidney Disease: <60 mL/min/1.73sq m Kidney failure: <15 mL/min/1.73sq m eGFR calculated using average adult body mass. Additional eGFR calculator available at: http://www.[employer]multiple_crcl_2011.htm GFR Non- >60 >60 mL/min [employer] Phone: GFR Staging [employer] Phone: Comment on above: Stage 1: Some kidney damage normal GFR Stage 2: Mild kidney damage GFR 60-89 Stage 3: Moderate kidney damage GFR 30-59 Stage 4: Severe kidney damage GFR 15-29 Stage 5: Severe kidney damage GFR <15 ESRD - chronic treatment by dialysis or transplant Glucose [Mass/Vol] 389 mg/dL High 70 - 99 mg/dL [employer] Phone: Interpretation and review of laboratory results Abnormal [employer] Phone: Potassium [Moles/Vol] 4.4 mmol/L 3.7 - 5.3 mmol/L [employer] Work Phone: Sodium [Moles/Vol] 135 mmol/L 135 - 144 mmol/L [facility] Work Phone: Urea nitrogen [Mass/Vol] 16 mg/dL 6 - 20 mg/dL [employer] Work Phone: CBC Auto DifferentialOrdered By: Flip Dodson on 10-18-2019 Absolute Eos # 0.24 [employer] [facility] Work Phone: Absolute Immature Granulocyte 0.10 [facility] Work Phone: Absolute Lymph # 3.09 [employer] [facility] Work Phone: Absolute [place] # 0.50 [employer] [facility] Work Phone: Basophils (Bld) [#/Vol] 0.09 10*3/uL [employer] Work Phone: Basophils/100 WBC (Bld) 1 % 0 - 2 % [employer] Phone: Differential Type NOT REPORTED [facility] [employer] Phone: Eosinophils/100 WBC (Bld) 3 % 1 - 4 % [employer] Phone: Erythrocyte distribution width (RBC) [Ratio] 11.7 % Low 11.8 - 14.4 % [employer] Work Phone: Hematocrit (Bld) [Volume fraction] 45.7 % 36.3 - 47.1 % [employer] Phone: Hemoglobin (Bld) [Mass/Vol] 14.4 g/dL 11.9 - 15.1 g/dL [employer] Phone: Immature granulocytes/100 WBC (Bld) 1 % High 0 [employer] Work Phone: Interpretation and review of laboratory results Abnormal [employer] Phone: Lymphocytes/100 WBC (Bld) 39 % 24 - 43 % [employer] Phone: MCH (RBC) [Entitic mass] 30.4 pg 25.2 - 33.5 pg [employer] Phone: MCHC (RBC) [Mass/Vol] 31.5 g/dL 28.4 - 34.8 g/dL [employer] Work Phone: MCV (RBC) [Entitic vol] 96.4 fL 82.6 - 102.9 fL [employer] Work Phone: Monocytes/100 WBC (Bld) 6 % 3 - 12 % [employer] Work Phone: NRBC Automated 0.0 0.0 per 100 WBC [employer] Phone: Platelet Estimate NOT REPORTED [employer] Phone: Platelet mean volume (Bld) [Entitic vol] 9.1 fL 8.1 - 13.5 fL [employer] Phone: Platelets (Bld) [#/Vol] 388 10*3/uL [employer] Work Phone: RBC (Bld) [#/Vol] 4.74 10*6/uL 3.95 - 5.1 1 m/uL [employer] Work Phone: RBC morphology finding Nom (Bld) NOT REPORTED [employer] Work Phone: Segmented neutrophils/100 WBC (Bld) 50 % 36 - 65 % [employer] Work Phone: Segs [facility]00 [facility] [employer] Work Phone: WBC (Bld) [#/Vol] 8.0 10*3/uL [employer] Work Phone: WBC Morphology NOT REPORTED [employer] [facility] Work Phone: LipaseOrdered By: Flip bautista on 10-18-2019 Lipase [Catalytic activity/Vol] 35 U/L 13 - 60 U/L [employer] Phone: US GALLBLADDER RUQOrdered By : Flip Dodson on 10-18-2019 No acute abnormality . Fatty liver. [employer] Phone: EXAMINATION: RIGHT UPPER QUADRANT ULTRASOUND 10/18/2019 12:58 pm COMPARISON: CT abdomen pelvis with contrast 07/30/2019 HISTORY: ORDERING SYSTEM PROVIDED HISTORY: Right upper quadrant abdominal pain TECHNOLOGIST PROVIDED HISTORY: right upper quadrant pain after eating FINDINGS: LIVER: Increased echogenicity of the liver compatible with fatty infiltration. BILIARY SYSTEM: Gallbladder is unremarkable without evidence of pericholecystic fluid, wall thickening or stones. Negative sonographic Cortes's sign. Common bile duct is at the upper limits of normal measuring approximately 5 mm. This is stable compared to CT from 07/30/2019 RIGHT KIDNEY: The right kidney is grossly unremarkable without evidence of hydronephrosis. PANCREAS: Visualized portions of the pancreas are unremarkable. OTHER: No evidence of right upper quadrant ascites. [employer] Phone: [employer], [employer] Incoming Radiant Results From [employer] - 10/18/2019 2:07 PM EST EXAMINATION: RIGHT UPPER QUADRANT ULTRASOUND 10/18/2019 12:58 pm COMPARISON: CT abdomen pelvis with contrast 07/30/2019 HISTORY: ORDERING SYSTEM PROVIDED HISTORY: Right upper quadrant abdominal pain TECHNOLOGIST PROVIDED HISTORY: right upper quadrant pain after eating FINDINGS: LIVER: Increased echogenicity of the liver compatible with fatty infiltration. BILIARY SYSTEM: Gallbladder is unremarkable without evidence of pericholecystic fluid, wall thickening or stones. Negative sonographic Cortes's sign. Common bile duct is at the upper limits of normal measuring approximately 5 mm. This is stable compared to CT from 07/30/2019 RIGHT KIDNEY: The right kidney is grossly unremarkable without evidence of hydronephrosis. PANCREAS: Visualized portions of the pancreas are unremarkable. OTHER: No evidence of right upper quadrant ascites. IMPRESSION: No acute abnormality. Fatty liver. [employer] Phone: EKG 12 LeadOrdered By: Corey Cleveland on 10-03-2019 Atrial Rate 91 BPM [employer] Work Phone: P [place] 64 degrees [employer] Work Phone: P-R Interval 164 ms [employer] Work Phone: Q-T Interval 388 ms [employer] Work Phone: QRS Duration 90 ms [employer] Work Phone: QTc Calculation (Bazett) 477 ms [employer] Work Phone: R [place] 15 degrees [employer] Work Phone: T [place] 58 degrees [employer] Work Phone: Ventricular Rate 91 BPM [employer] Work Phone: Normal sinus rhythm Normal ECG When compared with ECG of 26-MAR-2019 16:56, No significant change was found Confirmed by SHARON VARGAS ([id number]) on 10/03/2019 10:54:07 PM [employer] Work Phone: Vitaly, Mhpn Incoming E kg Results From [facility] - 10/03/2019 10:54 PM EST Normal sinus rhythm Normal ECG When compared with ECG of 26-MAR-2019 16:56, No significant change was found Confirmed by SHARON VARGAS ([id number]) on 10/03/2019 10:54:07 PM [employer] Work Phone: Otheron 08-24-2019 Findings suggest gastroparesis for solid materials. [facility] [place] EXAM[facility]ATION: NUCLEAR MEDICINE GASTRIC EMPTYING STUDY 08/22/2019 11:54 am TECHNIQUE: Following ingestion of a standard solid meal labeled with 1.0 mCi Tc 99m sulfur colloid, planar images of the chest and abdomen were obtained at 0, 1, 2 and 4 hours in both anterior and posterior projections. Regions of interest were drawn around the stomach and geometric means were calculated. All medications capable of altering motility were held. COMPARISON: None. HISTORY: ORDERING SYSTEM PROVIDED HISTORY: Generalized abdominal pain TECHNOLOGIST PROVIDED HISTORY: Is the patient ?->No Reason for Exam: Generalized abdominal pain Acuity: Unknown Type of Exam: Unknown FINDINGS: The gastric emptying were calculated as follows: At 60 min, there is 36% emptying of the stomach. (Normal range is 10-30%) At 120 min, there is 60% emptying of the stomach. (Normal is >40%) At 240 min, there is 77% emptying of the stomach. (Normal is >90%) Gastric emptying half time of 131 minutes. No significant esophageal retention, hiatal hernia or reflux was observed. [place], [place] [employer], [employer] Incoming Radiant Results From [employer] - 08/24/2019 10:08 AM EST EXAMINATION: NUCLEAR MEDICINE GASTRIC EMPTYING STUDY 08/22/2019 11:54 am TECHNIQUE: Following ingestion of a standard solid meal labeled with 1.0 mCi Tc 99m sulfur colloid, planar images of the chest and abdomen were obtained at 0, 1, 2 and 4 hours in both anterior and posterior projections. Regions of interest were drawn around the stomach and geometric means were calculated. All medications capable of altering motility were held. COMPARISON: None. HISTORY: ORDERING SYSTEM PROVIDED HISTORY: Generalized abdominal pain TECHNOLOGIST PROVIDED HISTORY: Is the patient ?->No Reason for Exam: Generalized abdominal pain Acuity: Unknown Type of Exam: Unknown FINDINGS: The gastric emptying were calculated as follows: At 60 min, there is 36% emptying of the stomach. (Normal range is 10-30%) At 120 min, there is 60% emptying of the stomach. (Normal is >40%) At 240 min, there is 77% emptying of the stomach. (Normal is >90%) Gastric emptying half time of 131 minutes. No significant esophageal retention, hiatal hernia or reflux was observed. IMPRESSION: Findings suggest gastroparesis for solid materials. [place], [place] US HEAD NECK SOFT TISSUE THY ROIDon 08-03-2019 1.3 cm TR 4 right thyroid nodule for which 1 year follow-up ultrasound is recommended. RECOMMENDATIONS: NODULE 1: ACR TI-RADS TR4 Recommend: Follow-up ultrasound in 1 year. ACR TI-RADS recommendations: TR4 (4-6 points): FNA if >= 1.5 cm; follow-up if 1.0-1.4 cm in 1, 2, 3, and 5 years ACR TI-RADS recommends that no more than two nodules with the highest ACR TI-RADS point total should be biopsied and no more than four nodules should be followed. [place], [place] EXAMINATION: THYROID ULTRASOUND 08/03/2019 COMPARISON: None available HISTORY: ORDERING SYSTEM PROVIDED HISTORY: Thyromegaly FINDINGS: Right thyroid lobe: 24.5 x 17.4 x 58.9 mm Left thyroid lobe: 17.0 x 17.0 x 49.0 mm Isthmus: 4.4 mm Thyroid Gland: Thyroid gland is somewhat heterogeneous with normal vascularity. The right lobe is larger than the left. Nodules: NODULE: Right 1 Size: 12.6 x 8.3 x 11.7 mm Location: Right superior 1. Composition: Almost completely solid (2) 2. Echogenicity: Hypoechoic (2) 3. Shape: [id number] (0) 4. Margins: Smooth (0) 5. Echogenic foci: None (0) ACR TI-RADS total points: 4 ACR TI-RADS risk category: TR4 Prior biopsy: Unknown. Cervical lymphadenopathy: No abnormal lymph nodes in the imaged portions of the neck. [place], [place] [employer], [employer] Incoming Radiant Results From [employer] - 08/03/2019 3:19 PM EST EXAMINATION: THYROID ULTRASOUND 08/03/2019 COMPARISON: None available HISTORY: ORDERING SYSTEM PROVIDED HISTORY: Thyromegaly FINDINGS: Right thyroid lobe: 24.5 x 17.4 x 58.9 mm Left thyroid lobe: 17.0 x 17.0 x 49.0 mm Isthmus: 4.4 mm Thyroid Gland: Thyroid gland is somewhat heterogeneous with normal vascularity. The right lobe is larger than the left. Nodules: NODULE: Right 1 Size: 12.6 x 8.3 x 11.7 mm Location: Right superior 1. Composition: Almost completely solid (2) 2. Echogenicity: Hypoechoic (2) 3. Shape: [id number] (0) 4. Margins: Smooth (0) 5. Echogenic foci: None (0) ACR TI-RADS total points: 4 ACR TI-RADS risk category: TR4 Prior biopsy: Unknown. Cervical lymphadenopathy: No abnormal lymph nodes in the imaged portions of the neck. IMPRESSION: 1.3 cm TR 4 right thyroid nodule for which 1 year follow-up ultrasound is recommended. RECOMMENDATIONS: NODULE 1: ACR TI-RADS TR4 Recommend: Follow-up ultrasound in 1 year. ACR TI-RADS recommendations: TR4 (4-6 points): FNA if >= 1.5 cm; follow-up if 1.0-1.4 cm in 1, 2, 3, and 5 years ACR TI-RADS recommends that no more than two nodules with the highest ACR TI-RADS point total should be biopsied and no more than four nodules should be followed. [place], [place] CT ABDOMEN PELVIS W IV CONTR AST Additional Contrast? Oralon 07-30-2019 1. No acute inflammatory process identified. 2. Bilateral punctate nephrolithiasis. 3. Hepatomegaly with steatosis. [place], [place] EXAMINATION: CT OF T HE ABDOMEN AND PELVIS WITH CONTRAST 07/30/2019 2:31 pm TECHNIQUE: CT of the abdomen and pelvis was performed with the administration of intravenous contrast. Multiplanar reformatted images are provided for review. Dose modulation, iterative reconstruction, and/or weight based adjustment of the mA/kV was utilized to reduce the radiation dose to as low as reasonably achievable. COMPARISON: March 01, 2019 HISTORY: ORDERING SYSTEM PROVIDED HISTORY: Abdominal pain, unspecified abdominal location TECHNOLOGIST PROVIDED HISTORY: FINDINGS: Lower Chest: The visualized lung bases are clear. Organs: Hepatic steatosis with hepatomegaly measuring 22 cm. The gallbladder, pancreas, spleen, adrenals and kidneys reveal no acute findings. Bilateral punctate nephrolithiasis. GI/Bowel: There is no bowel dilatation or wall thickening identified. Normal appendix. Pelvis: No acute findings. Status post hysterectomy. Peritoneum/Retroperiton eum: No free air or free fluid. The aorta is normal in caliber. The visceral branches are patent. No lymphadenopathy. Bones/Soft Tissues: Implanted thoracic neurostimulator. No acute osseous abnormality identified. [place] [employer], [employer] Incoming Radiant Results From [employer] - 07/30/2019 3:42 PM EST EXAMINATION: CT OF THE ABDOMEN AND PELVIS WITH CONTRAST 07/30/2019 2:31 pm TECHNIQUE: CT of the abdomen and pelvis was performed with the administration of intravenous contrast. Multiplanar reformatted images are provided for review. Dose modulation, iterative reconstruction, and/or weight based adjustment of the mA/kV was utilized to reduce the radiation dose to as low as reasonably achievable. COMPARISON: March 01, 2019 HISTORY: ORDERING SYSTEM PROVIDED HISTORY: Abdominal pain, unspecified abdominal location TECHNOLOGIST PROVIDED HISTORY: FINDINGS: Lower Chest: The visualized lung bases are clear. Organs: Hepatic steatosis with hepatomegaly measuring 22 cm. The gallbladder, pancreas, spleen, adrenals and kidneys reveal no acute findings. Bilateral punctate nephrolithiasis. GI/Bowel: There is no bowel dilatation or wall thickening identified. Normal appendix. Pelvis: No acute findings. Status post hysterectomy. Peritoneum/Retroperiton eum: No free air or free fluid. The aorta is normal in caliber. The visceral branches are patent. No lymphadenopathy. Bones/Soft Tissues: Implanted thoracic neurostimulator. No acute osseous abnormality identified. IMPRESSION: 1. No acute inflammatory process identified. 2. Bilateral punctate nephrolithiasis. 3. Hepatomegaly with steatosis. [place] CBC Auto Differentialon - Basophils (Bld) [#/Vol] 0.06 10*3/uL [place] Basophils/100 WBC (Bld) 1 % 0 - 2 % [place] Differential Type NOT REPORTED [place] Eosinophils (Bld) [#/Vol] 0.33 10*3/uL [place] Eosinophils/100 WBC (Bld) 4 % 1 - 4 % [place] Erythrocyte distribution width (RBC) [Ratio] 12.1 % 11.8 - 14.4 % [place] Hematocrit (Bld) [Volume fraction] 45.8 % 36.3 - 47.1 % [place] Hemoglobin (Bld) [Mass/Vol] 14.6 g/dL 11.9 - 15.1 g/dL [place] Immature granulocytes (Bld) [#/Vol] 0.12 10*3/uL [place] Immature granulocytes (Bld) [#/Vol] 1 % High 0 [place] Interpretation and review of laboratory results Abnormal [place] Lymphocytes (Bld) [#/Vol] 3.67 10*3/uL [place] Lymphocytes/100 WBC (Bld) 42 % 24 - 43 % [place] MCH (RBC) [Entitic mass] 30.3 pg 25.2 - 33.5 pg [place] MCHC (RBC) [Mass/Vol] 31.9 g/dL 28.4 - 34.8 g/dL [place] MCV (RBC) [Entitic vol] 95.0 fL 82.6 - 102.9 fL [place] Monocytes (Bld) [#/Vol] 0.66 10*3/uL [place] Monocytes/100 WBC (Bld) 8 % 3 - 12 % [place] Platelet mean volume (Bld) [Entitic vol] 9.1 fL 8.1 - 13.5 fL [place] Platelets (Bld) [#/Vol] NOT REPORTED [place] Platelets (Bld) [#/Vol] 406 10*3/uL [place] RBC (Bld) [#/Vol] 4.82 10*6/uL 3.95 - 5.1 1 m/uL [place] RBC morphology finding Nom (Bld) NOT REPORTED [place] Segmented neutrophils/100 WBC (Bld) 44 % 36 - 65 % [place] Segs Absolute 3.94 [place] WBC (Bld) [#/Vol] 8.8 10*3/uL [place] WBC (Bld) [#/Vol] 0.0 10*3/uL 0.0 per 10 0 WBC [place] WBC Morphology NOT REPORTED [place], [place] Comprehensive Metabolic Pane yamilet 07-20-2019 Albumin [Mass/Vol] 4.3 g/dL 3.5 - 5.2 g/dL [place] Albumin/Globulin [Mass ratio] 1.2 {ratio} [place] ALP [Catalytic activity/Vol] 85 U/L 35 - 104 U/L [place] ALT [Catalytic activity/Vol] 30 U/L 5 - 33 U/L [place] Anion gap [Moles/Vol] 14 mmol/L 9 - 17 mmol/L [place] AST [Catalytic activity/Vol] 23 U/L <32 [place] Bilirubin Ql (U) 0.21 mg/dL Low 0.3 - 1.2 mg/dL [place] Bun/Cre Ratio 25 High [place] Calcium [Mass/Vol] 9.9 mg/dL 8.6 - 10. 4 mg/dL [place] Chloride [Moles/Vol] 98 mmol/L 98 - 10 7 mmol/L [place] CO2 [Moles/Vol] 24 mmol/L 20 - 31 mmol/L [place] Creatinine [Mass/Vol] 0.63 mg/dL 0.5 - 0.9 mg/dL [place] GFR >60 >60 mL/min [place] GFR Non- >60 >60 mL/min [place] Glucose [Mass/Vol] 328 mg/dL High 70 - 99 mg/dL [place] Interpretation and review of laboratory results Abnormal [place] Potassium [Moles/Vol] 4.9 mmol/L 3.7 - 5.3 mmol/L [place] Protein [Mass/Vol] 7.8 g/dL 6.4 - 8.3 g/dL [place] Sodium [Moles/Vol] 136 mmol/L 135 - 144 mmol/L [place] Urea nitrogen [Mass/Vol] 16 mg/dL 6 - 20 mg/dL [place] Hemoglobin A1Con 07-20-2019 Glucose [Mass/Vol] 260 mg/dL [place] Comment on above: The ADA and AACC rec ommend providing the estimated average glucose result to permit better patient understanding of their HBA1c result. HbA1c (Bld) [Mass fraction] 10.7 % High 4.8 - 5.9 % [place] Interpretation and review of laboratory results Abnormal [place] Lipaseon 07-20-2019 Lipase [Catalytic activity/Vol] 36 U/L 13 - 60 U/L [place] Metabolic Panelon 07-20-2019 GFR/1.73 sq M predicted among non-blacks MDRD (S/P/Bld) [Vol rate/Area] [place], [place] Comment on above: Stage 1: Some kidney damage normal GFR Stage 2: Mild kidney damage GFR 60-89 Stage 3: Moderate kidney damage GFR 30-59 Stage 4: Severe kidney damage GFR 15-29 Stage 5: Severe kidney damage GFR <15 ESRD - chronic treatment by dialysis or transplant Average GFR for 40-4 9 years old: 99 mL/min/1.73sq m Chronic Kidney Disease: <60 mL/min/1.73sq m Kidney failure: <15 mL/min/1.73sq m eGFR calculated using average adult body mass. Additional eGFR calculator available at: http://www.[employer]/multiple_crcl_2012.htm Glucose, Fastingon 9 Glucose [Mass/Vol] 152 mg/dL High 70 - 99 mg/dL [place] Interpretation and review of laboratory results Abnormal [place] Basic Metabolic Panelon Anion gap [Moles/Vol] 17 mmol/L 9 - 17 mmol/L [place] Bun/Cre Ratio 18 [place] Calcium [Mass/Vol] 9.7 mg/dL 8.6 - 10. 4 mg/dL [place] Chloride [Moles/Vol] 96 mmol/L Low 98 - 10 7 mmol/L [place] CO2 [Moles/Vol] 22 mmol/L 20 - 31 mmol/L [place] Creatinine [Mass/Vol] 0.65 mg/dL 0.5 - 0.9 mg/dL [place] GFR >60 >60 mL/min [place] GFR Non- >60 >60 mL/min [place] Glucose [Mass/Vol] 310 mg/dL High 70 - 99 mg/dL [place] Interpretation and review of laboratory results Abnormal [place] Potassium [Moles/Vol] 4.4 mmol/L 3.7 - 5.3 mmol/L [place] Sodium [Moles/Vol] 135 mmol/L 135 - 144 mmol/L [place] Urea nitrogen [Mass/Vol] 12 mg/dL 6 - 20 mg/dL [place] Hemoglobin A1Con 06-04-2019 Glucose [Mass/Vol] 263 mg/dL [place] Comment on above: The ADA and AACC rec ommend providing the estimated average glucose result to permit better patient understanding of their HBA1c result. HbA1c (Bld) [Mass fraction] 10.8 % High 4.8 - 5.9 % [place] Interpretation and review of laboratory results Abnormal [place] LDL Cholesterol, [employer] Cholesterol in LDL [Mass/Vol] 64 mg/dL <100 [place] Comment on above: LDL Guidelines: <100 Desirable 100-129 Near to/above Desirable 130-159 Borderline >159 Undesirable Direct (measured) LDL and calculated LDL are not interchangeable tests. Lipid Panelon 06-04-2019 Cholesterol [Mass/Vol] 166 mg/dL <200 [place], [place] Comment on above: Cholesterol Guidelines: <200 Desirable 200-240 Borderline >240 Undesirable Cholesterol in HDL [Mass/Vol] 28 mg/dL Low >40 [place] Comment on above: HDL Guidelines: <40 Undesirable 40-59 Borderline >59 Desirable Cholesterol in LDL [Mass/Vol] 0 - 130 mg/dL [place] Comment on above: Calculation not tracy d for Triglyceride value greater than 400 mg/dL. Direct LDL reflexed LDL Guidelines: <100 Desirable 100-129 Near to/above Desirable 130-159 Borderline >159 Undesirable Direct (measured) LDL and calculated LDL are not interchangeable tests. Cholesterol in VLDL [Mass/Vol] 1 - 30 mg/dL [place] Cholesterol.total/Chol esterol in HDL [Mass ratio] 5.9 {ratio} High <5 [place] Interpretation and review of laboratory results Abnormal [place] Triglyceride [Mass/Vol] 665 mg/dL High <150 [place], [place] Comment on above: Triglyceride Guidelines: <150 Desirable 150-199 Borderline 200-499 High >499 Very high Based on AHA Guidelines for fasting triglyceride, June 2012. Metabolic Panelon 06-04-2019 GFR/1.73 sq M predicted among non-blacks MDRD (S/P/Bld) [Vol rate/Area] [place] Comment on above: Average GFR for 40-4 9 years old: 99 mL/min/1.73sq m Chronic Kidney Disease: <60 mL/min/1.73sq m Kidney failure: <15 mL/min/1.73sq m eGFR calculated using average adult body mass. Additional eGFR calculator available at: http://www.[employer]multiple_crcl_2012.htm Stage 1: Some kidney damage normal GFR Stage 2: Mild kidney damage GFR 60-89 Stage 3: Moderate kidney damage GFR 30-59 Stage 4: Severe kidney damage GFR 15-29 Stage 5: Severe kidney damage GFR <15 ESRD - chronic treatment by dialysis or transplant CT DRAINAGE HEMATOMA/SEROMA/ FLUID COLLECTIONon 02-10-2018 CT DRAINAGE HEMATOMA/SEROMA/FLUID COLLECTION ADDENDUM:Addendum is to correct voice recognition error in the body of the report.Intra sedation time of 30 minutes.Electronically Signed by: JADE RODGERS on TueFebruary 10, 2018 12:29:04 PM EDTPROCEDURE:CT DRAINAGEMODERATE CONSCIOUS SEDATION12/22/2017HISTOR Y:ORDERING SYSTEM PROVIDED HISTORY: Biopsy/Aspiration of new mass vs LN vsabscess in fat adjacent to rectumTECHNOLOGIST PROVIDED HISTORY:Discussed with Dx Radiology. Concern for mass vs lymph node vs possibleabscess. Does not appear to connect to rectum although does place some masseffect and in perirectal fat. Measures 3.6x3.3x4.2cm.Reason for exam:->Biopsy/Aspiratio n of new mass vs LN vs abscess in fatadjacent to rectumTECHNIQUE:Dose modulation, iterative reconstruction, and/or weight based adjustment ofthe mA/kV was utilized to reduce the radiation dose to as low as reasonablyachievable.CO NTRAST:NoneSEDATION:1 mgVersed and 75 mcg Fentanyl were titrated intravenously for moderatesedation monitored under my direction. Total intraservice time of sedationwas 3rd minutes. The patient's vital signs were monitored throughout theprocedure and recorded in the patient's medical record by the nurse.FLUOROSCOPY DOSE AND TYPE OR TIME AND EXPOSURES:NoneDESCRIPTI ON OF PROCEDURE:Informed consent was obtained after a detailed explanation of the procedureincluding risks, benefits, and alternatives. [place] protocol wasobserved. While the patient was positioned prone, after localizing, markingand anesthetizing the skin overlying the left gluteal region with 1%lidocaine a tiny incision was made. A 17 gauge guiding needle was advancedinto the left perirectal low-attenuation lesion. 2 core samples using an 18gauge needle were obtained. Subsequently, aspiration with the syringeyielded 10 cc of purulent material. The specimen and fluid purulent materialwas handed to the on-site pathologist who deemed adequate tissue sample.That guiding needle was removed and the site was dressed appropriately. Thepatient tolerated the procedure well left the department stable condition.Dr. Rodgers is present.FINDINGS:Postpr ocedural imaging demonstrated no evidence of hematoma or bleeding.There was collapse of the low-attenuation cavity.IMPRESSION: Technically successful core biopsy and aspiration of the left perirectallow-attenuati on lesion. 10 cc of purulent material was aspirated whichsignifies that this was a perirectal abscess collection.Interpreted by:LAY Yinigned by:Jade Rodgers MD02/10/18Edited Result - FINAL Normal [facility] Progress Noteon 01-25-2018 HIM IP Note OR Regulatory Submissions Associate Normal [facility] Cult,Aerobe/Anaerobeon 12-27 Neutrophils Specimen Description .LESION PERIRECTALSpecial Requests NOT REPORTEDDirect Exam MANY NEUTROPHILS MIXED BACTERIAL MORPHOTYPES SEEN ON GRAM STAIN. Culture MICROMONAS MICROS LIGHT GROWTH PREVOTELLA SPECIES BETA LACTAMASE NEGATIVE SCANT GROWTH NO AEROBIC ORGANISMS ISOLATED Report Status FINAL 12/27/2017 [facility] Comment on above: Performed By: #### A MY, CMPX, LIP, MG, VIDYA, CDP, GLYHGB ####[address] [address] Basic Metabolic Profon 12-23 (cont.) [facility] Comment on above: Result Comment: Aver age GFR for 40-49 years old: 99 mL/min/1.73sq mChronic Kidney Disease: <60 mL/min/1.73sq mKidney failure: <15 mL/min/1.73sq meGFR calculated using average adult body mass. Additional eGFR calculator available at:http://www.[employer]multiple_crcl_2012.htmHaley Ville [address] [place] [address] Performed By: #### A MY, CMPX, LIP, MG, VIDYA, CDP, GLYHGB ####[facility] [place] [address] Anion gap 13 mmol/L Normal 9-17 [facility] Comment on above: Performed By: #### A MY, CMPX, LIP, MG, VIDYA, CDP, GLYHGB ####[address] [address] Calcium 9.6 mg/dL Normal 8.6-10.4 [facility] Comment on above: Performed By: #### A MY, CMPX, LIP, MG, VIDYA, CDP, GLYHGB ####[address] [address] Chloride 100 mmol/L Normal 98-107 [facility] Comment on above: Performed By: #### A MY, CMPX, LIP, MG, VIDYA, CDP, GLYHGB ####[address] [address] CO2 22 mmol/L Normal 20-31 [facility] Comment on above: Performed By: #### A MY, CMPX, LIP, MG, VIDYA, CDP, GLYHGB ####[address] [address] Creatinine 0.38 mg/dL Low 0.50-0.90 [facility] Comment on above: Performed By: #### A MY, CMPX, LIP, MG, VIDYA, CDP, GLYHGB ####[address] [place] [address] eGFR (non-black) mL/min/{1.73_m2} Normal >60 [facility] Comment on above: Performed By: #### A MY, CMPX, LIP, MG, VIDYA, CDP, GLYHGB ####[address] [address] Glucose mass conc 270 mg/dL High 70-99 [facility] Comment on above: Performed By: #### A MY, CMPX, LIP, MG, VIDYA, CDP, GLYHGB ####[address] [place] [address] Potassium molar conc 3.9 mmol/L Normal 3.7-5.[address] [facility] Comment on above: Performed By: #### A MY, CMPX, LIP, MG, VIDYA, CDP, GLYHGB ####[address] [address] Sodium 135 mmol/L Normal 135-144 [facility] Comment on above: Performed By: #### A MY, CMPX, LIP, MG, VIDYA, CDP, GLYHGB ####[address] [address] Urea nitrogen 3 mg/dL Low 6-20 [facility] Comment on above: Performed By: #### A MY, CMPX, LIP, MG, VIDYA, CDP, GLYHGB ####[address] [address] BUN/CRE Ratio NOT REPORTED Normal -20 [facility] Comment on above: Performed By: #### A MY, CMPX, LIP, MG, VIDYA, CDP, GLYHGB ####[address] [address] Staging: NOT REPORTED Normal [facility] Comment on above: Performed By: #### A MY, CMPX, LIP, MG, VIDYA, CDP, GLYHGB ####[address] [address] CBCon 12-23-2017 Erythrocyte distribution width Auto Ratio (RBC) 12.7 % Normal 11.8-14.4 [facility] Comment on above: Performed By: #### A MY, CMPX, LIP, MG, VIDYA, CDP, GLYHGB ####[address] [address] Erythrocytes (RBC) 4.12 10*6/uL Normal 3.95-5.[address] [facility] Comment on above: Performed By: #### A MY, CMPX, LIP, MG, VIDYA, CDP, GLYHGB ####[address] [address] Erythrocytes (RBC) 0.0 per 100 WBC Normal 0.0 M [facility] Comment on above: Result Comment: [address] [address] Performed By: #### A MY, CMPX, LIP, MG, VIDYA, CDP, GLYHGB ####[address] [address] Hematocrit (HCT) 39.6 % Normal 36.3-47.1 [facility] Comment on above: Performed By: #### A MY, CMPX, LIP, MG, VIDYA, CDP, GLYHGB ####[address] [address] Hemoglobin mass conc (Bld) 12.3 g/dL Normal 11.9-15.1 [facility] Comment on above: Performed By: #### A MY, CMPX, LIP, MG, VIDYA, CDP, GLYHGB ####[address] [address] MCH 29.9 pg Normal 25.2-33.5 [facility] Comment on above: Performed By: #### A MY, CMPX, LIP, MG, VIDYA, CDP, GLYHGB ####[address] [address] MCHC mass conc (RBC) 31.1 g/dL Normal 28.4-34.[address] [facility] Comment on above: Performed By: #### A MY, CMPX, LIP, MG, VIDYA, CDP, GLYHGB ####[facility] [address] [place] [address] MCV 96.1 fL Normal 82.6-102.9 [facility] Comment on above: Performed By: #### A MY, CMPX, LIP, MG, VIDYA, CDP, GLYHGB ####[address] [place] [address] Platelet mean volume (PMV) 9.2 fL Normal 8.1-13.5 [facility] Comment on above: Performed By: #### A MY, CMPX, LIP, MG, VIDYA, CDP, GLYHGB ####[address] [place] [address] Platelets 396 10*3/uL Normal 138-453 [facility] Comment on above: Performed By: #### A MY, CMPX, LIP, MG, VIDYA, CDP, GLYHGB ####[address] [address] WBC (Leukocytes) 11.9 10*3/uL High 3.5-11.3 [facility] Comment on above: Performed By: #### A MY, CMPX, LIP, MG, VIDYA, CDP, GLYHGB ####[address] [address] Discharge Summaryon 12-24-19 18 HIM IP Note OR Regulatory Submissions Associate Normal [facility] Plan of Careon 12-23-2017 HIM IP Note OR Regulatory Submissions Associate Normal [facility] Progress Noteon 12-23-2017 HIM IP Note OR Regulatory Submissions Associate Normal [facility] Basic Metabolic Profon 12-22 (cont.) Normal [facility] Comment on above: Result Comment: Aver age GFR for 40-49 years old: 99 mL/min/1.73sq mChronic Kidney Disease: <60 mL/min/1.73sq mKidney failure: <15 mL/min/1.73sq meGFR calculated using average adult body mass. Additional eGFR calculator available at:http://www.ZhenXin.com/multiple_crcl_2012.htmSh[facility] [address] [place] [address] Performed By: #### A MY, CMPX, LIP, MG, VIDYA, CDP, GLYHGB ####[address] [address] Anion gap 14 mmol/L Normal 9-17 [facility] Comment on above: Performed By: #### A MY, CMPX, LIP, MG, VIDYA, CDP, GLYHGB ####[address] [address] Calcium 8.9 mg/dL Normal 8.6-10.4 [facility] Comment on above: Performed By: #### A MY, CMPX, LIP, MG, VIDYA, CDP, GLYHGB ####[address] [address] Chloride 100 mmol/L Normal 98-107 [facility] Comment on above: Performed By: #### A MY, CMPX, LIP, MG, VIDYA, CDP, GLYHGB ####[address] [address] CO2 21 mmol/L Normal 20-31 [facility] Comment on above: Performed By: #### A MY, CMPX, LIP, MG, VIDYA, CDP, GLYHGB ####[address] [address] Creatinine 0.40 mg/dL Low 0.50-0.90 [facility] Comment on above: Performed By: #### A MY, CMPX, LIP, MG, VIDYA, CDP, GLYHGB ####[address] [address] eGFR (non-black) mL/min/{1.73_m2} Normal >60 [facility] Comment on above: Performed By: #### A MY, CMPX, LIP, MG, VIDYA, CDP, GLYHGB ####[address] [address] Glucose mass conc 273 mg/dL High 70-99 [facility] Comment on above: Performed By: #### A MY, CMPX, LIP, MG, VIDYA, CDP, GLYHGB ####[address] [address] Potassium molar conc 3.9 mmol/L Normal 3.7-5.[address] [facility] Comment on above: Performed By: #### A MY, CMPX, LIP, MG, VIDYA, CDP, GLYHGB ####[address] [address] Sodium 135 mmol/L Normal 135-144 [facility] Comment on above: Performed By: #### A MY, CMPX, LIP, MG, VIDYA, CDP, GLYHGB ####[address] [address] Urea nitrogen 5 mg/dL Low 6-20 [facility] Comment on above: Performed By: #### A MY, CMPX, LIP, MG, VIDYA, CDP, GLYHGB ####[address] [address] BUN/CRE Ratio NOT REPORTED Normal 9-20 [facility] Comment on above: Performed By: #### A MY, CMPX, LIP, MG, VIDYA, CDP, GLYHGB ####[address] [address] Staging: NOT REPORTED Normal [facility] Comment on above: Performed By: #### A MY, CMPX, LIP, MG, VIDYA, CDP, GLYHGB ####[address] [address] CBCon 12-22-2017 Erythrocyte distribution width Auto Ratio (RBC) 12.6 % Normal 11.8-14.4 [facility] Comment on above: Performed By: #### A MY, CMPX, LIP, MG, VIDYA, CDP, GLYHGB ####[address] [address] Erythrocytes (RBC) 4.08 10*6/uL Normal 3.95-5.[address] [facility] Comment on above: Performed By: #### A MY, CMPX, LIP, MG, VIDYA, CDP, GLYHGB ####[address] [address] Erythrocytes (RBC) 0.0 per 100 WBC Normal 0.0 M [facility] Comment on above: Result Comment: [address] [address] Performed By: #### A MY, CMPX, LIP, MG, VIDYA, CDP, GLYHGB ####[address] [address] Hematocrit (HCT) 37.9 % Normal 36.3-47.1 [facility] Comment on above: Performed By: #### A MY, CMPX, LIP, MG, VIDYA, CDP, GLYHGB ####[address] [address] Hemoglobin mass conc (Bld) 12.2 g/dL Normal 11.9-15.1 [facility] Comment on above: Performed By: #### A MY, CMPX, LIP, MG, VIDYA, CDP, GLYHGB ####[address] [address] MCH 29.9 pg Normal 25.2-33.5 [facility] Comment on above: Performed By: #### A MY, CMPX, LIP, MG, VIDYA, CDP, GLYHGB ####[address] [place] [address] MCHC mass conc (RBC) 32.2 g/dL Normal 28.4-34.[address] [facility] Comment on above: Performed By: #### A MY, CMPX, LIP, MG, VIDYA, CDP, GLYHGB ####[address] [address] MCV 92.9 fL Normal 82.6-102.9 [facility] Comment on above: Performed By: #### A MY, CMPX, LIP, MG, VIDYA, CDP, GLYHGB ####[address] [address] Platelet mean volume (PMV) 9.2 fL Normal 8.1-13.5 [facility] Comment on above: Performed By: #### A MY, CMPX, LIP, MG, VIDYA, CDP, GLYHGB ####[address] [address] Platelets 385 10*3/uL Normal 138-453 [facility] Comment on above: Performed By: #### A MY, CMPX, LIP, MG, VIDYA, CDP, GLYHGB ####[address] [address] WBC (Leukocytes) 14.0 10*3/uL High 3.5-11.3 [facility] Comment on above: Performed By: #### A MY, CMPX, LIP, MG, VIDYA, CDP, GLYHGB ####[address] [address] [facility] (NOTE)[id number] Y LABORATORIESCONSULTING PATHOLOGISTS CORPORATIONANATOMIC [id number] [place], [place] [id number] Fax: NONGYNECOLOGICA L CYTOPATHOLOGY CONSULTATIONPatient Name: RISA WARNEROhio [facility] Rec: [id number] Number: [id number]: 12/22/2017Received: 12/22/2017Reported: 12/23/2017 13:13-- Diagnosis --JANA RECTAL LESION, FINE NEEDLE ASPIRATION: NEGATIVE FOR MALIGNANCY. ACUTE INFLAMMATION. Zarina AnnElectronically Signed Out rdd/12/23/2017Clinical InformationPerirectal lesion.Source of Specimen1: JANA RECTAL LESION, FINE NEEDLE ASPIRATIONGross Description RECTAL LESION Specimen received in CytoLyt solution. Clearcolorless fluid with white flecks. Two DONA stained slides.IMMEDIATE EVALUATION: Pass 1: Inflammatory cells.Pass 2: Inflammatory cells. Additional 6 cc purulent and hemorrhagicfluid aspirated and submitted for culture.JET 12/22/17MICROSCOPIC DESCRIPTION Microscopic examination performed. Normal [facility] Plan of Careon 12-22-2017 HIM IP Note OR Regulatory Submissions Associate Normal [facility] HIM IP Note OR Regulatory Submissions Associate Normal [facility] HIM IP Note OR Regulatory Submissions Associate Normal [facility] Progress Noteon 12-22-2017 HIM IP Note OR Regulatory Submissions Associate Normal [facility] HIM IP Note OR Regulatory Submissions Associate Normal [facility] HIM IP Note OR Regulatory Submissions Associate Normal [facility] Amylaseon 12-21-2017 Amylase 37 U/L Normal 28-100 [facility] Comment on above: Result Comment: [facility] [place] [address] Performed By: #### A MY, CMPX, LIP, MG, VIDYA, CDP, GLYHGB ####[employer] [place] [address] CBC with Diffon 12-21-2017 Abs. Basophil 0.11 k/uL Normal 0.00-0.20 [facility] Comment on above: Performed By: #### A MY, CMPX, LIP, MG, VIDYA, CDP, GLYHGB ####[employer] [place] [address] Abs.Neutrophil (Seg) 6.42 k/uL Normal 1.50-8.[address] [facility] Comment on above: Performed By: #### A MY, CMPX, LIP, MG, VIDYA, CDP, GLYHGB ####[address] [address] Basophils/100 WBC Auto (Bld) 1 % Normal 0-2 [facility] Comment on above: Performed By: #### A MY, CMPX, LIP, MG, VIDYA, CDP, GLYHGB ####[address] [address] Eosinophils 0.30 10*3/uL Normal 0.00-0.44 [facility] Comment on above: Performed By: #### A MY, CMPX, LIP, MG, VIDYA, CDP, GLYHGB ####[address] [address] Eosinophils/100 leukocytes 3 % Normal 1-4 [facility] Comment on above: Performed By: #### A MY, CMPX, LIP, MG, VIDYA, CDP, GLYHGB ####[address] [address] Erythrocyte distribution width Auto Ratio (RBC) 12.8 % Normal 11.8-14.4 [facility] Comment on above: Performed By: #### A MY, CMPX, LIP, MG, VIDYA, CDP, GLYHGB ####[address] [address] Erythrocytes (RBC) 0.0 per 100 WBC Normal 0.0 [facility] Comment on above: Performed By: #### A MY, CMPX, LIP, MG, VIDYA, CDP, GLYHGB ####[address] [address] Erythrocytes (RBC) 4.56 10*6/uL Normal 3.95-5.[address] [facility] Comment on above: Performed By: #### A MY, CMPX, LIP, MG, VIDYA, CDP, GLYHGB ####[address] [address] Granulocytes/100 WBC (Bld) 0.20 k/uL Normal 0.00-0.30 [facility] Comment on above: Result Comment: [address] [address] Performed By: #### A MY, CMPX, LIP, MG, VIDYA, CDP, GLYHGB ####[address] [address] Hematocrit (HCT) 42.1 % Normal 36.3-47.1 [facility] Comment on above: Performed By: #### A MY, CMPX, LIP, MG, VIDYA, CDP, GLYHGB ####[address] [address] Hemoglobin mass conc (Bld) 13.9 g/dL Normal 11.9-15.1 [facility] Comment on above: Performed By: #### A MY, CMPX, LIP, MG, VIDYA, CDP, GLYHGB ####[address] [address] Immature granulocytes #/vol (Bld) 2 % High 0 [facility] Comment on above: Performed By: #### A MY, CMPX, LIP, MG, VIDYA, CDP, GLYHGB ####[address] [address] Lymphocytes 4.08 10*3/uL High 1.10-3.70 [facility] Comment on above: Performed By: #### A MY, CMPX, LIP, MG, VIDYA, CDP, GLYHGB ####[address] [address] Lymphocytes/100 leukocytes 34 % Normal 24-43 [facility] Comment on above: Performed By: #### A MY, CMPX, LIP, MG, VIDYA, CDP, GLYHGB ####[address] [address] MCH 30.5 pg Normal 25.2-33.5 [facility] Comment on above: Performed By: #### A MY, CMPX, LIP, MG, VIDYA, CDP, GLYHGB ####[place] [address] MCHC mass conc (RBC) 33.0 g/dL Normal 28.4-34.[address] [facility] Comment on above: Performed By: #### A MY, CMPX, LIP, MG, VIDYA, CDP, GLYHGB ####[place] [address] MCV 92.3 fL Normal 82.6-102.9 [facility] Comment on above: Performed By: #### A MY, CMPX, LIP, MG, VIDYA, CDP, GLYHGB ####[place] [address] Monocytes 0.84 10*3/uL Normal 0.10-1.20 [facility] Comment on above: Performed By: #### A MY, CMPX, LIP, MG, VIDYA, CDP, GLYHGB ####[place] [address] Monocytes/100 leukocytes 7 % Normal 3-12 [facility] Comment on above: Performed By: #### A MY, CMPX, LIP, MG, VIDYA, CDP, GLYHGB ####[place] [address] Neutrophil (Seg) 53 % Normal 36-65 [facility] Comment on above: Performed By: #### A MY, CMPX, LIP, MG, VIDYA, CDP, GLYHGB ####[address] [address] Platelet mean volume (PMV) 9.8 fL Normal 8.1-13.5 [facility] Comment on above: Performed By: #### A MY, CMPX, LIP, MG, VIDYA, CDP, GLYHGB ####[address] [address] Platelets 435 10*3/uL Normal 138-453 [facility] Comment on above: Performed By: #### A MY, CMPX, LIP, MG, VIDYA, CDP, GLYHGB ####[address] [address] WBC (Leukocytes) 12.0 10*3/uL High 3.5-11.3 [facility] Comment on above: Performed By: #### A MY, CMPX, LIP, MG, VIDYA, CDP, GLYHGB ####[address] [address] Auto Diff Performed NOT REPORTED Normal [facility] Comment on above: Performed By: #### A MY, CMPX, LIP, MG, VIDYA, CDP, GLYHGB ####[address] [address] Erythrocyte morphology NOT REPORTED Normal [facility] Comment on above: Performed By: #### A MY, CMPX, LIP, MG, VIDYA, CDP, GLYHGB ####[address] [address] Platelets NOT REPORTED Normal [facility] Comment on above: Performed By: #### A MY, CMPX, LIP, MG, VIDYA, CDP, GLYHGB ####[address] [address] WBC Morphology NOT REPORTED Normal [facility] Comment on above: Performed By: #### A MY, CMPX, LIP, MG, VIDYA, CDP, GLYHGB ####[address] [place] [address] Comp Metabolic Pr/rfx MGon 0 12-21-2017 Alanine aminotransferase (ALT) 13 U/L Normal 5-33 [facility] Comment on above: Result Comment: SPEC IMEN SLIGHTLY HEMOLYZED, RESULTS MAY BE ADVERSELY AFFECTED. Performed By: #### A MY, CMPX, LIP, MG, VIDYA, CDP, GLYHGB ####[address] [address] Albumin 3.7 g/dL Normal 3.5-5.2 [facility] Comment on above: Performed By: #### A MY, CMPX, LIP, MG, VIDYA, CDP, GLYHGB ####[address] [address] Albumin/Globulin Ratio 1.1 {ratio} Normal 1.0-2.5 [facility] Comment on above: Performed By: #### A MY, CMPX, LIP, MG, VIDYA, CDP, GLYHGB ####[address] [address] Alkaline Phos 71 U/L Normal 35-104 [facility] Comment on above: Result Comment: SPEC IMEN SLIGHTLY HEMOLYZED, RESULTS MAY BE ADVERSELY AFFECTED. Performed By: #### A MY, CMPX, LIP, MG, VIDYA, CDP, GLYHGB ####[facility] [address] [place] [address] Anion gap 16 mmol/L Normal 9-17 [facility] Comment on above: Performed By: #### A MY, CMPX, LIP, MG, VIDYA, CDP, GLYHGB ####[address] [place] [address] Aspartate aminotransferase (AST) 19 U/L Normal <32 [facility] Comment on above: Result Comment: SPEC IMEN SLIGHTLY HEMOLYZED, RESULTS MAY BE ADVERSELY AFFECTED. Performed By: #### A MY, CMPX, LIP, MG, VIDYA, CDP, GLYHGB ####[address] [address] Bilirubin Ql (U) 0.26 mg/dL Low 0.3-1.2 [facility] Comment on above: Performed By: #### A MY, CMPX, LIP, MG, VIDYA, CDP, GLYHGB ####[address] [address] Calcium 9.3 mg/dL Normal 8.6-10.4 [facility] Comment on above: Performed By: #### A MY, CMPX, LIP, MG, VIDYA, CDP, GLYHGB ####[address] [address] Chloride 96 mmol/L Low 98-107 [facility] Comment on above: Performed By: #### A MY, CMPX, LIP, MG, VIDYA, CDP, GLYHGB ####[address] [address] CO2 22 mmol/L Normal 20-31 [facility] Comment on above: Performed By: #### A MY, CMPX, LIP, MG, VIDYA, CDP, GLYHGB ####[address] [address] Creatinine 0.55 mg/dL Normal 0.50-0.90 [facility] Comment on above: Performed By: #### A MY, CMPX, LIP, MG, VIDYA, CDP, GLYHGB ####[address] [address] eGFR (non-black) mL/min/{1.73_m2} Normal >60 [facility] Comment on above: Performed By: #### A MY, CMPX, LIP, MG, VIDYA, CDP, GLYHGB ####[facility] [address] [place] [address] Glucose mass conc 286 mg/dL High 70-99 [facility] Comment on above: Performed By: #### A MY, CMPX, LIP, MG, VIDYA, CDP, GLYHGB ####[facility] [place] [address] Potassium molar conc 4.5 mmol/L Normal 3.7-5.[address] [facility] Comment on above: Result Comment: SPEC IMEN SLIGHTLY HEMOLYZED, RESULTS MAY BE ADVERSELY AFFECTED. Performed By: #### A MY, CMPX, LIP, MG, VIDYA, CDP, GLYHGB ####[address] [place] [address] Protein 7.2 g/dL Normal 6.4-8.3 [facility] Comment on above: Performed By: #### A MY, CMPX, LIP, MG, VIDYA, CDP, GLYHGB ####[facility] [place] [address] Sodium 134 mmol/L Low 135-144 [facility] Comment on above: Performed By: #### A MY, CMPX, LIP, MG, VIDYA, CDP, GLYHGB ####[facility] [place] [address] Urea nitrogen 9 mg/dL Normal 6-20 [facility] Comment on above: Performed By: #### A MY, CMPX, LIP, MG, VIDYA, CDP, GLYHGB ####[facility] [place] [address] (cont.) Normal [facility] Comment on above: Result Comment: Aver age GFR for 40-49 years old: 99 mL/min/1.73sq mChronic Kidney Disease: <60 mL/min/1.73sq mKidney failure: <15 mL/min/1.73sq meGFR calculated using average adult body mass. Additional eGFR calculator available at:http://www.[employer].com/multiple_crcl_2012.htmHaley Ville [address] [place] [address] Performed By: #### A MY, CMPX, LIP, MG, VIDYA, CDP, GLYHGB ####[facility] [place] [address] BUN/CRE Ratio NOT REPORTED Normal - [facility] Comment on above: Performed By: #### A MY, CMPX, LIP, MG, VIDYA, CDP, GLYHGB ####[address] [address] Staging: NOT REPORTED Normal [facility] Comment on above: Performed By: #### A MY, CMPX, LIP, MG, VIDYA, CDP, GLYHGB ####[address] [address] Consulton 12-21-2017 HIM IP Note OR Regulatory Submissions Associate Normal [facility] Hemoglobin A1Con 12-21-2017 Glucose mass conc 309 mg/dL Normal [facility] Comment on above: Result Comment: The ADA and AACC recommend providing the estimated average glucose result to permit better patient understanding of their HBA1c result.[address] [address] Performed By: #### A MY, CMPX, LIP, MG, VIDYA, CDP, GLYHGB ####[address] [place] [address] Hemoglobin A1c/Hemoglobin.total mass fraction (Bld) 12.4 % High 4.0-6.0 [facility] Comment on above: Performed By: #### A MY, CMPX, LIP, MG, VIDYA, CDP, GLYHGB ####[address] [address] History and Physicalon 12-21 HIM IP Note OR Regulatory Submissions Associate Normal [facility] Lipaseon 12-21-2017 Lipase 22 U/L Normal 13-60 [facility] Comment on above: Result Comment: [facility] [address] [place] [address] Performed By: #### A MY, CMPX, LIP, MG, VIDYA, CDP, GLYHGB ####[address] [address] Magnesiumon 12-21-2017 Magnesium 1.7 mg/dL Normal 1.6-2.6 [facility] Comment on above: Result Comment: [facility] [address] [place] [id number] Performed By: #### A MY, CMPX, LIP, MG, VIDYA, CDP, GLYHGB ####[address] [address] PTon 12-21-2017 INR Coag RelTime (PPP) 1.0 {INR} Normal [facility] Comment on above: Result Comment: Ther apeutic Range: Moderate Anticoagulant Intensity: INR = 2.0-3.0 High Anticoagulant Intensity: INR = 2.5-3.[address] [address] Performed By: #### P T ####[address] [address] Prothrombin time (PT) Coag time (PPP) 10.5 s Normal 9.0-12.0 [facility] Comment on above: Performed By: #### P T ####[address] [address] Phosphorus, Inorg.on 018 Phosphorus, Inorg. 3.1 mg/dL Normal 2.6-4.5 [facility] Comment on above: Result Comment: [facility] [address] [place] [id number] Performed By: #### A MY, CMPX, LIP, MG, VIDYA, CDP, GLYHGB ####[facility] [id number] Plan of Careon 12-21-2017 HIM IP Note OR Regulatory Submissions Associate Normal [facility] HIM IP Note OR Regulatory Submissions Associate Normal [facility] Progress Noteon 12-21-2017 HIM IP Note OR Regulatory Submissions Associate Normal [facility] HIM IP Note OR Regulatory Submissions Associate Normal [facility] HIM IP Note OR Regulatory Submissions Associate Normal [facility] US NON OB TRANSVAGINALon US NON OB TRANSVAGINAL EXAMINATION:PELVI C ULTRASOUND12/21/2017TECH NIQUE:Transvaginal pelvic ultrasound was performed. Color Doppler evaluation wasperformed.COMPARISON :12/20/2017 CT abdomen and pelvisHISTORY:ORDERING SYSTEM PROVIDED HISTORY: Perirectal abscessFINDINGS:Measure ments:Uterus: Status post hysterectomy.Right Ovary: 2.1 x 1.8 x 1.2 cmLeft Ovary: 5.1 x 3.9 x 5.2 cm.Ultrasound Findings:Uterus: Uterus demonstrates normal myometrial echotexture.Endometrial stripe: Endometrial stripe is within normal limits.Right Ovary: Right ovary is within normal limits. There is blood flow to theright ovary.Left Ovary: There is a 4.3 x 3.1 cm septated left ovarian cyst. Arterial andvenous blood flow to the left ovarian tissue is demonstrated.Free Fluid: No evidence of free fluid.CT scan demonstrates left pararectal mass in the ischiorectal fossa displacedin the rectum right of midline. This area could not be technically evaluatedby ultrasound due to low position.IMPRESSION: Status posthysterectomy.Left ovarian septated cyst.Left pararectal mass noted on CT pelvis study could not be technicallyvisualized due to low position in the ischiorectal fossa.Interpreted by:LAY Bojorquezigned by:Kevin Reese MD12/21/17inal result Normal [facility] Vital Signs Date Time Vital Sign Value Performing Clinician Facility 06-16-2023 20:45-0400 Diastolic blood pressure 76 mm[Hg] Vivian Oseguera APRN - [place] Work Phone: [facility] [employer] 06-16-2023 20:45-0400 Heart rate 88 /min Vivian Might SET UP MECHANIC - COMMERCIAL ENGINEER [facility] Phone[facility] 06-16-2023 20:45-0400 Respiratory rate 16 /min Vivian Might SET UP MECHANIC - COMMERCIAL ENGINEER Work Phone: [facility] 06-16-2023 20:45-0400 SaO2% (BldA) [Mass fraction] 97 % Vivian Might SET UP MECHANIC - COMMERCIAL ENGINEER Work Phone: [facility] 06-16-2023 20:45-0400 Systolic blood pressure 128 mm[Hg] Vivian Might SET UP MECHANIC [employer] COMMERCIAL ENGINEER Work Phone: [facility] 06-16-2023 17:32-0400 Body temperature 99 [degF] Vivian Might SET UP MECHANIC - COMMERCIAL ENGINEER Work Phone: [facility] 06-14-2023 11:31-0400 Respiratory rate 18 /min Emiliano Segundo MD [facility] 06-14-2023 07:34-0400 SaO2% (BldA) [Mass fraction] 95 % Emiliano Segundo MD [facility] 06-14-2023 06:45-0400 Body temperature 97.59 [degF] Emiliano Segundo MD [facility] 06-14-2023 06:45-0400 Diastolic blood pressure 77 mm[Hg] Emiliano Segundo MD [facility] 06-14-2023 06:45-0400 Heart rate 74 /min Emiliano Segundo MD [facility] [employer] 06-14-2023 06:45-0400 Systolic blood pressure 136 mm[Hg] Emiliano Segundo MD [facility] 06-14-2023 05:00-0400 Body mass index (BMI) [Ratio] 33.88 kg/m2 Emiliano Segundo MD [facility] 06-14-2023 05:00-0400 Body weight 95.21 kg Emiliano Segundo MD [facility] [employer] 06-13-2023 10:06-0400 Body height 167.6 cm Emiliano Segundo MD [facility] [employer] 01-19-2023 20:55-0400 Body height 167.6 cm [facility] [address] [facility] [employer] 01-19-2023 20:55-0400 Body mass index (BMI) [Ratio] 33.89 kg/m2 [facility] 01-19-2023 20:55-0400 Body weight 95.25 kg Mthz [address] [facility] [employer] 12-08-2022 14:15-0400 Diastolic blood pressure 76 mm[Hg] Tari De La Torre MD Work Phone: [facility] 12-08-2022 14:15-0400 Heart rate 88 /min Tari De La Torre MD Work Phone: [facility] 12-08-2022 14:15-0400 Respiratory rate 16 /min Tari De La Torre MD Work Phone: [facility] 12-08-2022 14:15-0400 SaO2% (BldA) [Mass fraction] 95 % Tari De La Torre MD Work Phone: [facility] 12-08-2022 14:15-0400 Systolic blood pressure 135 mm[Hg] Tari De La Torre MD Work Phone: [facility] 12-08-2022 13:48-0400 Body temperature 98.1 [degF] Tari De La Torre MD Work Phone: [facility] 12-08-2022 12:16-0400 Body mass index (BMI) [Ratio] 33.99 kg/m2 Tari De La Torre MD Work Phone: [facility] [employer] 12-08-2022 12:16-0400 Body weight 95.53 kg Tari De La Torre MD Work Phone: [facility] [employer] 11-25-2022 16:01-0500 Body height 167.6 cm Tari De La Torre MD Work Phone: [facility] [employer] 09-07-2022 12:20-0500 Body height 167.64 cm Shiraz Sherman Other [employer] Other 08-06-2022 18:00-0500 Body temperature 98.1 [degF] Vivian Might SET UP MECHANIC - COMMERCIAL ENGINEER Work Phone: [employer] 08-06-2022 18:00-0500 Diastolic blood pressure 51 mm[Hg] Vivian Might SET UP MECHANIC - COMMERCIAL ENGINEER Work Phone: [employer] 08-06-2022 18:00-0500 Heart rate 99 /min Vivian Might SET UP MECHANIC - COMMERCIAL ENGINEER Work Phone: [employer] 08-06-2022 18:00-0500 Respiratory rate 18 /min Vivian Might SET UP MECHANIC - COMMERCIAL ENGINEER Work Phone: [facility] [employer] 08-06-2022 18:00-0500 SaO2% (BldA) [Mass fraction] 94 % Vivian Might SET UP MECHANIC - COMMERCIAL ENGINEER Work Phone: [employer] 08-06-2022 18:00-0500 Systolic blood pressure 102 mm[Hg] Vivian Might SET UP MECHANIC - COMMERCIAL ENGINEER Work Phone: [employer] 08-06-2022 13:59-0500 Body height 167.6 cm Vivian Might SET UP MECHANIC - COMMERCIAL ENGINEER Work Phone: [facility] [employer] 08-06-2022 13:59-0500 Body mass index (BMI) [Ratio] 34.7 kg/m2 Vivian Might SET UP MECHANIC - COMMERCIAL ENGINEER Work Phone: [facility] [employer] 08-06-2022 13:59-0500 Body weight 97.52 kg Vivian Might SET UP MECHANIC - COMMERCIAL ENGINEER Work Phone: [facility] [employer] 01-20-2021 14:45-0400 Diastolic blood pressure 65 mm[Hg] [facility] Radiologist [facility] [employer] Work Phone: 01-20-2021 14:45-0400 Heart rate 94 /min [facility] Radiologist [facility] Work Phone: 01-20-2021 14:45-0400 Respiratory rate 14 /min [facility] [employer] Phone: 01-20-2021 14:45-0400 SaO2% (BldA) [Mass fraction] 95 % [facility] [employer] Phone: 01-20-2021 14:45-0400 Systolic blood pressure 123 mm[Hg] [facility] [employer] Phone: 01-20-2021 11:44-0400 Body height 167.6 cm [facility] [employer] Phone: 01-20-2021 11:44-0400 Body mass index (BMI) [Ratio] 30.67 kg/m2 [facility] [employer] Phone: 01-20-2021 11:44-0400 Body temperature 97.39 [degF] [facility] [employer] Phone: 01-20-2021 11:44-0400 Body weight 86.18 kg [facility] [employer] Phone: Encounters Encounter Date Encounter Type Care Provider Facility Start: 09-06-2023 End: 09-07-2023 ambulatory VIVIAN W MIGHT [facility] Start: 08-23-2023 End: 08-24-2023 ambulatory Vivian Oseguera SET UP MECHANIC-[facility] Facility: [facility] Start: 08-05-2023 End: 08-06-2023 ambulatory Rolan Sim SET UP MECHANIC-COMMERCIAL ENGINEER Facility: [facility] Start: 08-04-2023 End: 08-07-2023 ambulatory VIVIAN W MIGHT [facility] Start: 08-03-2023 End: 08-04-2023 ambulatory ROLAN [facility] Start: 07-21-2023 End: 07-24-2023 ambulatory VIVIAN W MIGHT [facility] Start: 07-13-2023 End: 07-16-2023 ambulatory VIVIAN W MIGHT [facility] Start: 06-28-2023 End: 07-01-2023 ambulatory VIVIAN W MIGHT [facility] Start: 06-22-2023 End: 06-25-2023 ambulatory [facility]IVIAN [facility]GUERA [facility] Start: 06-16-2023 End: 06-16-2023 Emergency department patient visit VIVIAN OSEGUERA [facility] Start: 06-16-2023 End: 06-16-2023 Emergency department patient visit Vivian Oseguera SET UP MECHANIC - COMMERCIAL ENGINEER Work Phone: [facility] ED Comment on above: Syncope, unspecified syncope type (Primary Dx) Start: 06-10-2023 End: 06-14-2023 Evaluation and management of inpatient VIVIAN Combs [facility] Start: 06-10-2023 End: 06-14-2023 Evaluation and management of inpatient Emiliano Segundo MD [facility] MED SURG Comment on above: Recurrent syncope (P rimary Dx); Pneumonia of both lower lobes due to infectious organism Start: 03-25-2023 End: 03-26-2023 ambulatory VIVIAN OSEGUERA [facility] Start: 02-25-2023 ambulatory NARENDRANATH LAKSHMIPATHY . Facility:H1 Start: 02-08-2023 End: 02-08-2023 ambulatory NARENDRANATH LAKSHMIPATHY . Facility:H1 Start: 01-27-2023 End: 01-28-2023 ambulatory NARENDRANATH LAKSHMIPATHY . Facility:H1 Start: 01-19-2023 End: 01-20-2023 ambulatory VIVIAN OSEGUERA [facility] Start: 01-19-2023 End: 01-19-2023 Subsequent hospital visit by physician [facility] Sleep Rm 1 [facility] Sleep Center Comment on above: LAYNE (obstructive sle ep apnea) Start: 01-11-2023 End: 01-11-2023 ambulatory NARENDRANATH LAKSHMIPATHY . Facility:[facility]1 Start: 12-30-2022 End: 12-31-2022 ambulatory NARENDRANATH LAKSHMIPATHY . Facility:H1 Start: 12-28-2022 End: 12-31-2022 ambulatory VIVIAN Lauryn OSEGUERA [facility] Start: 12-28-2022 End: 12-30-2022 Subsequent hospital visit by physician [facility] Mri Scanner [facility] MRI Comment on above: Thoracic neuritis Start: 12-08-2022 End: 12-08-2022 ambulatory [facility]IVIAN W MIGHT [facility] Start: 12-08-2022 End: 12-08-2022 Subsequent hospital visit by physician Tari De La Torre MD Work Phone: [facility] OR Comment on above: Screening for colon cancer Start: 11-30-2022 End: 12-01-2022 ambulatory MINERVA MCGHEE . Facility:H1 Start: 11-23-2022 End: 11-24-2022 ambulatory VIVIAN W MIGHT [facility] Start: 11-23-2022 End: 11-23-2022 Subsequent hospital visit by physician [facility] Sleep [address] Sleep Center Comment on above: Tired; Fatigue, unspecified type; LAYNE (obstructive sleep apnea) Start: 11-17-2022 End: 11-20-2022 ambulatory VIVIAN W MIGHT [facility] Start: 11-17-2022 End: 11-19-2022 Subsequent hospital visit by physician [facility] Mri Scanner [employer] MRI Comment on above: Lumbar radiculitis Start: 10-21-2022 End: 10-22-[address] DOCTOR URIBE Facility: Start: 10-08-2022 End: 10-09-2022 ambulatory VIVIAN W MIGHT [facility] Start: 10-08-2022 End: 10-08-2022 Patient encounter status General acute hospital EKG Start: 10-08-2022 End: 10-08-2022 Subsequent hospital visit by physician [facility] Water Plant Pump Operator Supervisor [facility] EKG Comment on above: Syncope and collapse ; Preop cardiovascular exam; Dizziness; Primary hypertension; Mixed hyperlipidemia; Tobacco abuse counseling Start: 10-04-2022 Admission to [facility] surgery center Shiraz Sherman [facility] OutPt Start: 10-04-2022 End: 10-04-2022 ambulatory NON STAFF Facility:[facility] Start: 10-01-2022 End: 10-01-2022 Subsequent hospital visit by physician [facility] Tilt Table Study Room [facility] Stress Lab Comment on above: Canceled (Other) Start: 09-30-2022 End: 09-30-2022 ambulatory NON STAFF Facility:[facility] Start: 09-30-2022 End: 09-30-2022 ambulatory NON STAFF [facility] Work Phone: Start: 09-30-2022 End: 09-30-2022 Patient encounter procedure [facility]-Pre-Surgical Testing Work Phone: Start: 09-29-2022 End: 09-30-2022 ambulatory [facility] Start: 09-29-2022 Encounter for preprocedural cardiovascular examination ROLAN SIM [facility] Start: 09-29-2022 End: 09-29-2022 Subsequent hospital visit by physician Sara Tilt Table Study Room [facility] Stress Lab Comment on above: Postural syncope Start: 09-21-2022 End: 09-21-2022 ambulatory NON STAFF Facility:[facility] Start: 09-21-2022 End: 09-22-2022 ambulatory NON STAFF [facility] Work Phone: Start: 09-21-2022 End: 09-21-2022 Patient encounter procedure [facility]-Pre-Surgical Testing Work Phone: Start: 09-21-2022 End: 09-21-2022 Subsequent hospital visit by physician Vivian Bullard CNP Work Phone: [facility] Laboratory Comment on above: Controlled type 2 di abetes mellitus with diabetic polyneuropathy, with long-term current use of insulin (HCC) Start: 09-14-2022 End: 09-14-[address] DOCTOR URIBE Facility: Start: 09-10-2022 End: 09-11-2022 ambulatory [facility] Start: 09-10-2022 End: 09-11-2022 Encounter for other preprocedural examination VIVIAN Combs [facility] Start: 09-10-2022 End: 09-10-2022 Subsequent hospital visit by physician Torri Covid Screening Schedule [facility] Covid Screening Comment on above: Arrived Start: 09-07-2022 Office outpatient vi sit 40 minutes Shiraz Sherman [facility] Neurosurgery Start: 09-07-2022 End: 12-13-[address] DOCTOR URIBE [facility] [employer] Other Start: 09-03-2022 End: 09-03-2022 Subsequent hospital visit by physician Torri Covid Screening Schedule [facility] Covid Screening Comment on above: Arrived Start: 08-26-2022 End: 08-27-[address] DOCTOR URIBE Facility:H1 Start: 08-25-2022 End: 08-26-2022 ambulatory Rolan Sim APRN-[facility] Facility:[facility] Start: 08-10-2022 End: 08-10-[address] COREY [place] . Facility:H1 Start: 08-06-2022 End: 08-06-2022 Subsequent hospital visit by physician Vineet Nam PT [facility] Physical Therapy Start: 08-06-2022 End: 08-06-2022 Emergency department patient visit Vivian Canelo Bullard CNP Work Phone: [facility] ED Comment on above: Rib pain on left erik e (Primary Dx) Start: 08-04-2022 End: 08-06-2022 Subsequent hospital visit by physician [facility] Ultrasound Room [facility] Ultrasound Comment on above: Colon cancer screeni ng; Fatty liver Start: 08-02-2022 End: 08-02-2022 Subsequent hospital visit by physician Vineet Nam PT [facility] Physical Therapy Start: 07-29-2022 End: 07-30-[address] COREY [place] . Facility:H1 Start: 07-23-2022 End: 07-23-2022 Subsequent hospital visit by physician Vineet Nam PT [facility] Physical Therapy Start: 07-19-2022 End: 07-19-2022 Subsequent hospital visit by physician Mulu Mccray PTA [facility] Laboratory Comment on above: Colon cancer screeni ng; Fatty liver Arrived Start: 07-16-2022 End: 07-16-2022 Subsequent hospital visit by physician Vineet Nam PT [facility] Physical Therapy Comment on above: Arrived Start: 07-13-2022 End: 07-13-2022 Subsequent hospital visit by physician Mulu Mccray PTA [facility] Physical Therapy Comment on above: Arrived Start: 07-12-2022 End: 07-12-2022 Subsequent hospital visit by physician Mulu Mccray PTA [facility] Physical Therapy Comment on above: Arrived Start: 07-08-2022 End: 07-08-2022 Subsequent hospital visit by physician Vineet Nam PT [facility] Physical Therapy Comment on above: Arrived Start: 07-07-2022 End: 07-07-2022 Subsequent hospital visit by physician Karrie Beltran PTA [facility] Physical Therapy Comment on above: Arrived Start: 07-05-2022 End: 07-05-2022 Subsequent hospital visit by physician Karrie Beltran PTA [facility] Physical Therapy Comment on above: Arrived Start: 07-02-2022 End: 07-02-2022 Subsequent hospital visit by physician Vineet Nam PT [facility] Physical Therapy Comment on above: Arrived Start: 06-30-2022 End: 06-30-2022 Subsequent hospital visit by physician Karrie Beltran PTA [facility] Physical Therapy Comment on above: Arrived Start: 06-28-2022 End: 06-28-2022 Subsequent hospital visit by physician Karrie Beltran PTA [facility] Physical Therapy Comment on above: Arrived Start: 06-24-2022 End: 06-24-2022 Subsequent hospital visit by physician Vineet Nam PT [facility] Physical Therapy Comment on above: Arrived Start: 06-18-2022 End: 06-18-2022 Subsequent hospital visit by physician Karrie Beltran PTA [facility] Physical Therapy Comment on above: Arrived Start: 06-16-2022 End: 06-16-2022 Subsequent hospital visit by physician Karrie Beltran PTA [facility] Physical Therapy Comment on above: Arrived Start: 06-14-2022 End: 06-14-2022 Subsequent hospital visit by physician Karrie Beltran PTA [facility] Physical Therapy Comment on above: Arrived Start: 06-11-2022 End: 06-11-2022 Subsequent hospital visit by physician Vineet Nam PT [facility] Physical Therapy Comment on above: Arrived Start: 06-07-2022 End: 06-07-2022 Subsequent hospital visit by physician Karrie Beltran PTA [facility] Physical Therapy Start: 06-02-2022 End: 06-02-2022 Subsequent hospital visit by physician Karrie Beltran PTA [facility] Physical Therapy Start: 05-28-2022 End: 05-28-2022 Subsequent hospital visit by physician Vineet Nam PT [facility] Physical Therapy Comment on above: Arrived Start: 05-27-2022 End: 05-27-2022 Subsequent hospital visit by physician Vineet Nam PT [facility] Physical Therapy Comment on above: Arrived Start: 05-25-2022 End: 05-25-2022 Subsequent hospital visit by physician Nathan Garcia PT [facility] Physical Therapy Comment on above: Arrived Start: 05-18-2022 End: 05-18-2022 Subsequent hospital visit by physician Vineet Nam PT [facility] Physical Therapy Comment on above: Arrived Start: 04-29-2022 End: 04-30-[address] COREY [place] . Facility:H1 Start: 04-13-2022 End: 04-13-[address] COREY [place] . Facility:H1 Start: 04-09-2022 End: 04-09-2022 Subsequent hospital visit by physician [facility] Covid Screening Schedule [facility] Covid Screening Comment on above: Arrived Start: 04-01-2022 End: 04-02-2022 ambulatory KEILY CLEMENTS . Facility:H1 Start: 03-31-2022 End: 04-02-2022 Subsequent hospital visit by physician [facility] Vascular Imaging Room [facility] Vascular Lab Comment on above: Intermittent claudic ation (HCC) Start: 03-02-2022 End: 03-02-2022 ambulatory NON STAFF Facility:[facility] Start: 11-26-2021 End: 11-26-2021 [facility] Covid Screening Comment on above: Arrived Start: 05-15-2021 End: 05-17-2021 Subsequent hospital visit by physician [facility] Mamm[facility] Mammography Comment on above: Other screening mamm ogram Start: 04-14-2021 ambulatory VIVIAN OSEGUERA [facility] Start: 03-11-2021 End: 03-11-2021 Subsequent hospital visit by physician Vivian Oseguera APRN - COMMERCIAL ENGINEER Work Phone: [facility] Laboratory Comment on above: Abnormal LFTs Start: 03-04-2021 End: 03-04-2021 Subsequent hospital visit by physician [facility] Cardiology Stress Room [facility] Stress Lab Comment on above: Arrived Start: 03-03-2021 End: 03-03-2021 Subsequent hospital visit by physician [facility] Echo Room [facility] Echocardiography Comment on above: Essential hypertensi on; Chest discomfort; Hyperlipidemia, unspecified hyperlipidemia type; Tobacco abuse Arrived Start: 02-09-2021 End: 02-09-2021 Subsequent hospital visit by physician Vivian Oseguera SET UP MECHANIC - COMMERCIAL ENGINEER [facility] Comment on above: Hepatomegaly Start: 01-28-2021 End: 01-28-2021 Subsequent hospital visit by physician Vivian Oseguera SET UP MECHANIC - COMMERCIAL ENGINEER Work Phone: [facility] Laboratory Comment on above: Renal stones; Renal colic Start: 01-27-2021 End: 01-29-2021 Subsequent hospital visit by physician Sara Martini Dr Room 2 [facility] Radiology Comment on above: Renal stones Start: 01-20-2021 End: 01-22-2021 Subsequent hospital visit by physician Sara Cat Scan Room [facility] CT Scan Comment on above: DDD (degenerative di sc disease), lumbar Start: 09-30-2020 End: 09-30-2020 Subsequent hospital visit by physician Torri Covid Screening Schedule [facility] Covid Screening Comment on above: Preoperative testing Start: 08-13-2020 End: 08-13-2020 Subsequent hospital visit by physician Vivian [facility] Laboratory Start: 07-25-2020 End: 07-27-2020 Subsequent hospital visit by physician Sara Cat Scan Room [facility] CT Scan Comment on above: Traumatic injury of head, initial encounter; Scalp tenderness Start: 07-08-2020 End: 07-08-2020 Subsequent hospital visit by physician Torri Covid Screening Schedule [facility] Comment on above: Arrived Start: 01-25-2020 End: 01-27-2020 Subsequent hospital visit by physician Sara Martini Dr Room 4 [facility] Radiology Comment on above: Renal stones Start: 12-28-2019 End: 12-28-2019 Subsequent hospital visit by physician Vivian [facility] Start: 10-18-2019 End: 10-20-2019 Subsequent hospital visit by physician Vivian Oseguera SET UP MECHANIC - [employer]CIAL ENGINE[employer] Work Phone: [facility] Comment on above: Right upper quadrant abdominal pain Start: 10-03-2019 End: 10-03-2019 Subsequent hospital visit by physician Vivian Oseguera SET UP MECHANIC - COMMERCIAL ENGINEER Work Phone: [facility] Start: 08-22-2019 End: 08-24-2019 Subsequent hospital visit by physician [facility] Nuclear Room [facility] Nuclear Medicine Comment on above: Arrived Generalized abdomina l pain Start: 08-16-2019 End: 08-18-2019 Subsequent hospital visit by physician Sara Nuclear Room [facility] Nuclear Medicine Comment on above: Generalized abdomina l pain Start: 08-03-2019 End: 08-05-2019 Subsequent hospital visit by physician Sara Ultrasound [facility] Ultrasound Comment on above: Thyromegaly Start: 07-30-2019 End: 08-01-2019 Subsequent hospital visit by physician Sara Cat Scan Room [facility] CT Scan Comment on above: Abdominal pain, unsp ecified abdominal location Start: 07-20-2019 End: 07-20-2019 Subsequent hospital visit by physician [facility]ian [facility] Start: 07-13-2019 End: 07-13-2019 Subsequent hospital visit by physician [facility]ian [facility] Comment on above: 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, uncontrolled (HCC) Start: 06-04-2019 End: 06-04-2019 Subsequent hospital visit by physician [facility]ian [facility] Comment on above: 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, uncontrolled (HCC) Start: 12-21-2017 End: 12-23-2017 Evaluation and management of inpatient [facility] Procedures Date Procedure Procedure Detail Performing Clinician Start: 06-16-2023 Ct head/brain w/o co ntrast material Vicki Finnegan PA-C Work Phone: Start: 06-16-2023 Comprehensive metabo lic panel Vicki Finnegan PA-C Work Phone: Start: 06-16-2023 Radiologic exam ches t single view Vicki Finnegan PA-C Work Phone: Start: 06-14-2023 GLUCOSE, WHOLE BLOOD St tierney Danielle MD Work Phone: Start: 06-14-2023 GLUCOSE, WHOLE BLOOD St tierney Danielle MD Work Phone: Start: 06-14-2023 BASIC METABOLIC PANE L W/ REFLEX TO MG FOR LOW K Emanuel Danielle MD Work Phone: Start: 06-14-2023 Blood count complete auto&auto difrntl wbc Emanuel Danielle MD Work Phone: Start: 06-13-2023 GLUCOSE, WHOLE BLOOD St tierney Danielle MD Work Phone: Start: 06-13-2023 GLUCOSE, WHOLE BLOOD St tierney Danielle MD Work Phone: Start: 06-13-2023 GLUCOSE, WHOLE BLOOD St tierney Danielle MD Work Phone: Start: 06-13-2023 GLUCOSE, WHOLE BLOOD St tierney Danielle MD Work Phone: Start: 06-13-2023 End: 06-13-2023 Rhythm ecg 1-3 leads w/interpretation & report Unknown Provider Result Start: 06-13-2023 BASIC METABOLIC PANE L W/ REFLEX TO MG FOR LOW K Emanuel Danielle MD Work Phone: Start: 06-13-2023 Blood count complete auto&auto difrntl wbc Emanuel Danielle MD Work Phone: Start: 06-12-2023 GLUCOSE, WHOLE BLOOD St tierney Danielle MD Work Phone: Start: 06-12-2023 GLUCOSE, WHOLE BLOOD St tierney Danielle MD Work Phone: Start: 06-12-2023 GLUCOSE, WHOLE BLOOD St tierney Danielle MD Work Phone: Start: 06-12-2023 GLUCOSE, WHOLE BLOOD St tierney Danielle MD Work Phone: Start: 06-12-2023 End: 06-13-2023 Rhythm ecg 1-3 leads w/interpretation & report Unknown Provider Result Start: 06-12-2023 BASIC METABOLIC PANE L W/ REFLEX TO MG FOR LOW K Emanuel Danielle MD Work Phone: Start: 06-12-2023 Blood count complete auto&auto difrntl wbc Emanuel Danielle MD Work Phone: Start: 06-11-2023 GLUCOSE, WHOLE BLOOD St tierney Danielle MD Work Phone: Start: 06-11-2023 GLUCOSE, WHOLE BLOOD St tierney Danielle MD Work Phone: Start: 06-11-2023 GLUCOSE, WHOLE BLOOD St tierney Danielle MD Work Phone: Start: 06-11-2023 GLUCOSE, WHOLE BLOOD St tierney Danielle MD Work Phone: Start: 06-11-2023 GLUCOSE, WHOLE BLOOD St tierney Danielle MD Work Phone: Start: 06-11-2023 End: 06-11-2023 Rhythm ecg 1-3 leads w/interpretation & report Unknown Provider Result Start: 06-11-2023 BASIC METABOLIC PANE L W/ REFLEX TO MG FOR LOW K Emnauel Danielle MD Work Phone: Start: 06-11-2023 Natriuretic peptide Adalid Danielle MD Work Phone: Start: 06-11-2023 LACTATE, SEPSIS Emiliano laurent MD Start: 06-11-2023 Procalcitonin (pct) Adalid Danielle MD Work Phone: Start: 06-10-2023 Culture bacterial bl ood aerobic w/id isolates Emiliano Segundo MD Start: 06-10-2023 Assay of troponin quantitative Emiliano Segundo MD Start: 06-10-2023 CULTURE, BLOOD 1 Emiliano ortega MD Start: 06-10-2023 LACTATE, SEPSIS Emiliano laurent MD Start: 06-10-2023 Ct thorax w/contrast material Emiliano Segundo MD Start: 06-10-2023 Radiologic exam ches t 2 views Emiliano Segundo MD Start: 06-10-2023 Ct cervical spine w/ o contrast material Emiliano Segundo MD Start: 06-10-2023 Ct head/brain w/o co ntrast material Emiliano Segundo MD Start: 06-10-2023 COVID-19, RAPID Emiliano laurent MD Start: 06-10-2023 Comprehensive metabo lic panel Emiliano Segundo MD Start: 06-10-2023 Ecg routine ecg w/le ast 12 lds i&r only Emiliano Segundo MD Start: 12-28-2022 Mri spinal canal tho racic w/o contrast matrl Terry Mcghee MD Work Phone: Start: 12-08-2022 GLUCOSE, WHOLE BLOOD Vi naresh De La Torre MD Work Phone: Start: 12-08-2022 End: 12-08-2022 Colonoscopy Tari De La Torre MD Work Phone: Start: 11-17-2022 Mri spinal canal lum bar w/o contrast material Keily Clements SET UP MECHANIC - [employer] Work Phone: Start: 09-30-2022 SARS Antigen (LFIA) Start: 09-29-2022 NM TILT TABLE TEST Albert t W Might SET UP MECHANIC - COMMERCIAL ENGINEER Work Phone: Start: 09-21-2022 Urine albumin quantitative Vivian W Might SET UP MECHANIC - COMMERCIAL ENGINEER Work Phone: Start: 09-21-2022 Lipid panel Vivian W Mi ght SET UP MECHANIC - COMMERCIAL ENGINEER Work Phone: Start: 09-21-2022 End: 09-21-2022 Basic metabolic panel calcium total Vivian W Might SET UP MECHANIC - COMMERCIAL ENGINEER Work Phone: Start: 08-06-2022 Assay of troponin quantitative Shan A Hammuda PA-C Work Phone: Start: 08-06-2022 Ecg routine ecg w/le ast 12 lds w/i&r Shan A Hammuda PA-C Work Phone: Start: 08-06-2022 Radiologic exam ches t single view Shan A Hammuda PA-C Work Phone: Start: 08-06-2022 Basic metabolic pane l calcium total Shan A Hammuda PA-C Work Phone: Start: 08-06-2022 Ecg routine ecg w/le ast 12 lds w/i&r Shan A Hammuda PA-C Work Phone: Start: 08-04-2022 Us abdominal real ti me w/image limited Tari De La Torre MD Work Phone: Start: 07-19-2022 Ceruloplasmin Tari De La Torre MD Work Phone: Start: 07-19-2022 Hepatitis b surf ant ibody hbsab Tari De La Torre MD Work Phone: Start: 03-31-2022 Non-invasive physiol ogic study extremity 3 levls Vivian Oseguera SET UP MECHANIC - [employer] Work Phone: Start: 05-15-2021 Screening mammograph y bi 2-view breast inc cad Vivian Oseguera SET UP MECHANIC - COMMERCIAL ENGINEER Work Phone: Start: 03-11-2021 Comprehensive metabo lic panel Claudia Willett SET UP MECHANIC [employer] Work Phone: Start: 03-11-2021 Hepatitis b core ant ibody hbcab total Claudia Willett SET UP MECHANIC [employer] Work Phone: Start: 03-11-2021 Iaad ia hepatitis b surface antigen Claudia Willett SET UP MECHANIC [employer] Work Phone: Start: 02-09-2021 Hepatic function panel Vivian Oseguera SET UP MECHANIC - COMMERCIAL ENGINEER Work Phone: Start: 01-28-2021 Urnls dip stick/tabl et reagent auto microscopy Meghan León SET UP MECHANIC - COMMERCIAL ENGINEER Work Phone: Start: 01-27-2021 Radiologic exam abdo men 1 view Meghan Ribeirolauren SET UP MECHANIC - COMMERCIAL ENGINEER Work Phone: Start: 01-20-2021 Ct lumbar spine w/co ntrast material Corey Cleveland MD Work Phone: Start: 08-13-2020 Lipid panel Rolan Sim Work Phone: Start: 07-25-2020 Ct head/brain w/o co ntrast material Vivian Oseguera Work Phone: Start: 01-25-2020 Radiologic exam abdo men 1 view Meghan León Work Phone: Start: 12-28-2019 Assay of free thyroxine Mario Alberto Zimmerman Work Phone: Start: 12-28-2019 Assay of gammaglobul in iga igd igg igm each Mario Alberto Zimmerman Work Phone: Start: 12-28-2019 Assay of thyroid stimulating hormone tsh Mario Alberto Zimmerman Work Phone: Start: 12-28-2019 Assay of thyroxine total Mario Alberto Zimmerman Work Phone: Start: 12-28-2019 C-reactive protein Pierre ael Cheo Zimmerman Work Phone: Start: 12-28-2019 Creatine kinase total M ichryder Zimmerman Work Phone: Start: 12-28-2019 Hemoglobin glycosyla priya a1c Mario Alberto Zimmerman Work Phone: Start: 12-28-2019 Lactate dehydrogenase ldh Mario Alberto Zimmerman Work Phone: Start: 12-28-2019 Sedimentation rate r bc automated Mario Alberto Zimmerman Work Phone: Start: 10-18-2019 Us abdominal real ti me w/image limited Flip Srinivasan Getfugu SET UP MECHANIC [employer] Work Phone: Start: 10-18-2019 Basic metabolic pane l calcium total Flip Dodson SET UP MECHANIC [employer] Work Phone: Start: 10-03-2019 Ecg routine ecg w/le ast 12 lds w/i&r Corey Cleveland MD Work Phone: Start: 10-03-2019 EKG REPORT Hpf Scanni ng Start: 08-22-2019 Gastric emptying haily ging study Vivian Oseguera Work Phone: Start: 08-03-2019 Us soft tissue head & neck real time imge docm Hever Olivera Work Phone: Start: 07-30-2019 Ct abdomen & pelvis w/contrast material Curtis Jean Work Phone: Start: 07-20-2019 Assay of lipase Curtis Jean Work Phone: Start: 07-20-2019 Blood count complete auto&auto difrntl wbc Curtis Jean Work Phone: Start: 07-20-2019 Comprehensive metabo lic panel Curtis Jean Work Phone: Start: 07-20-2019 Hemoglobin glycosyla priya a1c Curtis Jean Work Phone: Start: 07-13-[address] gtt 3 specimens Vivian W Might Work Phone: Start: 06-04-2019 Basic metabolic pane l calcium total Vivian W Might Work Phone: Start: 06-04-2019 Hemoglobin glycosyla priya a1c Vivian W Might Work Phone: Start: 06-04-2019 Lipid panel Vivian W Mi ght Work Phone: Start: 06-04-2019 Lipoprotein direct measurement ldl cholesterol Vivian W Might Work Phone: Start: 12-23-2017 DISCHARGE PATIENT [facility] Start: 12-23-2017 POC GLUCOSE FINGERSTICK [facility]IOR Start: 12-23-2017 POCT GLUCOSE VAL MATHEW Start: 12-23-2017 DIET CARB CONTROL [facility] Start: 12-23-2017 POCT GLUCOSE VAL MATHEW Start: 12-23-2017 INITIATE OXYGEN THER APY PROTOCOL [facility] Start: 12-23-2017 POC GLUCOSE FINGERSTICK VAL [facility]IOR Start: 12-23-2017 BASIC METABOLIC PANEL H LARY SENIOR Start: 12-23-2017 CBC VAL MATHEW Start: 12-23-2017 POCT GLUCOSE VAL MATHEW Start: 12-23-2017 INTAKE AND OUTPUT VAL [facility]IOR Start: 12-22-2017 POC GLUCOSE FINGERSTICK [facility]IOR Start: 12-22-2017 POCT GLUCOSE VAL MATHEW Start: 12-22-2017 POC GLUCOSE FINGERSTICK VAL [facility]IOR Start: 12-22-2017 SURGICAL PATHOLOGY FLORENCIA SENIOR Start: 12-22-2017 I&d hematoma seroma/ fluid collection [facility] Start: 12-22-2017 ANAEROBIC AND AEROBI C CULTURE [facility] Start: 12-22-2017 POCT GLUCOSE VAL MATHEW Start: 12-22-2017 POC GLUCOSE FINGERSTICK VAL SENIOR Start: 12-22-2017 POCT GLUCOSE VAL MATHEW Start: 12-22-2017 INITIATE OXYGEN THER APY PROTOCOL VAL [facility]IOR Start: 12-22-2017 POC GLUCOSE FINGERSTICK VAL SENIOR Start: 12-22-2017 BASIC METABOLIC PANEL H LARY SENIOR Start: 12-22-2017 CBC VAL ROOTON Start: 12-22-2017 POCT GLUCOSE VAL ROOTON Start: 12-22-2017 INTAKE AND OUTPUT VAL SENIOR Start: 12-21-2017 POC GLUCOSE FINGERSTICK VAL SENIOR Start: 12-21-2017 POCT GLUCOSE VAL MATHEW Start: 12-21-2017 POC GLUCOSE FINGERSTICK VAL SENIOR Start: 12-21-2017 Us transvaginal VAL ARRIOLA Start: 12-21-2017 PROTIME-INR VAL [facility]W Start: 12-21-2017 POCT GLUCOSE VAL MATHEW Start: 12-21-2017 POC GLUCOSE FINGERSTICK VAL SENIOR Start: 12-21-2017 POC GLUCOSE FINGERSTICK VAL SENIOR Start: 12-21-2017 POCT GLUCOSE VAL MATHEW Start: 12-21-2017 INITIATE OXYGEN THER APY PROTOCOL [facility] Start: 12-21-2017 AMYLASE VAL ROOTON Start: 12-21-2017 CBC WITH AUTO DIFFERENTIAL [facility] Start: 12-21-2017 COMPREHENSIVE METABO LIC PANEL W/ REFLEX TO MG FOR LOW K [facility] Start: 12-21-2017 HEMOGLOBIN A1C VAL ENRIQUEZ TCHESON Start: 12-21-2017 LIPASE VAL ROOTON Start: 12-21-2017 MAGNESIUM VAL ROOTON Start: 12-21-2017 PHOSPHORUS VAL SWIFT HESON Start: 12-21-2017 POC GLUCOSE FINGERSTICK VAL [facility]IOR Start: 12-21-2017 DAILY WEIGHTS VAL VARGAS Start: 12-21-2017 FULL CODE VAL MATHEW Start: 12-21-2017 INITIATE OXYGEN THER APY PROTOCOL [facility] Start: 12-21-2017 INTAKE AND OUTPUT [facility] Start: 12-21-2017 IP CONSULT TO GENERA L SURGERY [facility] Start: 12-21-2017 MISCELLANEOUS NURSIN G CARE ORDER (SPECIFY) [facility] Start: 12-21-2017 NOTIFY PHYSICIAN (SPECIFY) [facility] Start: 12-21-2017 PLACE INTERMITTENT PNEUMATIC COMPRESSION DEVICE [facility] Start: 12-21-2017 POCT GLUCOSE VAL MAT[facility]W Start: 12-21-2017 TOBACCO CESSATION EDUCATION [facility] Start: 12-21-2017 VITAL SIGNS VAL [facility]W Start: 12-21-2017 PATIENT STATUS (DIRECT) [facility] Start: 06-02-2017 Microscopic observat ion [Identifier] in Cervix by Cyto stain Vineet Nam PT Plan of Treatment Date Care Activity Detail Author Start: 2038 Pneumococcal 0-64 years Vaccine (2 of 2 - PPSV23) Pneumococcal 0-64 years Vaccine (2 of 2 - PPSV23) [employer] Start: 2038 Pneumococcal 0-64 years Vaccine (2 of 2) Pneumococcal 0-64 years Vaccine (2 of 2) [employer] Work Phone: Start: 12-08-2032 Screening for malignant neoplasm of colon [facility] Peak 10 Start: 12-08-2025 Screening for malignant neoplasm of colon [facility] Peak 10 Start: 06-16-2024 GFR test (Diabetes, CKD 3-4, OR last GFR 15-59) GFR test (Diabetes, CKD 3-4, OR last GFR 15-59) [facility] Peak 10 Start: 06-14-2024 GFR test (Diabetes, CKD 3-4, OR last GFR 15-59) GFR test (Diabetes, CKD 3-4, OR last GFR 15-59) [facility] Peak 10 Start: 05-27-2024 COVID-19 Vaccine (#1) COVID-19 Vaccine (#1) [facility] [employer] Comment on above: Postponed from 1973 (Not Indicated ) Start: 05-27-2024 Diabetic foot examination Diabetic foot exam [employer] [facility] [employer] Comment on above: Postponed from 03/18/2022 (Not Indicated ) Start: 05-27-2024 Hepatitis B vaccine (1 of 3 - 3-dose series) Hepatitis B vaccine (1 of 3 - 3-dose series) [employer] Comment on above: Postponed from 1973 (Not Indicated ) Start: 05-27-2024 HIV screening HIV screen [facility] Comment on above: Postponed from 02/29/1988 (Patient Refus ed) Start: 05-27-2024 Shingles vaccine (2 of 2) Shingles vaccine (2 of 2) [facility] Comment on above: Postponed from 05/20/2023 (Unavailable) Start: 05-16-2024 End: 05-16-2024 Patient encounter procedure 05/16/2024 1:40 PM EDT Office Visit [facility] [address] [place] [facility] [place] [id number] Nathan Ardon MD [address] [place] [address] 1 year [facility] Comment on above: 1 year Start: 03-25-2024 Influenza vaccination Flu vaccine (#1) [facility] Comment on above: Postponed from 04/26/2023 (Unavailable) Start: 03-24-2024 Depression Monitoring Depression Monitoring [facility] Start: 03-24-2024 Hemoglobin A1c measurement A1C test (Diabetic or Prediabetic) [facility] Start: 09-28-2023 End: 09-28-2023 Patient encounter procedure 09/28/2023 3:40 PM EST Office Visit [facility] [address] [place] [id number] Vivian Oseguera, SET UP MECHANIC - COMMERCIAL ENGINEER [address] [place] [address] 6 month [facility] Comment on above: 6 month Start: 09-23-2023 Depression Monitoring Depression Monitoring [facility] Start: 09-23-2023 DTaP/Tdap/Td vaccine (1 - Tdap) DTaP/Tdap/Td vaccine (1 - Tdap) [facility] Comment on above: Postponed from 02/29/1992 (Patient Refus ed) Start: 09-21-2023 GFR test (Diabetes, CKD 3-4, OR last GFR 15-59) GFR test (Diabetes, CKD 3-4, OR last GFR 15-59) [facility] Start: 09-21-2023 Hemoglobin A1c measurement A1C test (Diabetic or Prediabetic) [facility] Start: 09-21-2023 Lipid panel Lipids [facility] Start: 09-21-2023 Urine screening for protein Diabetic Alb to Cr ratio (uACR) test [facility] Start: 06-22-2023 End: 06-22-2023 Patient encounter procedure 06/22/2023 8:40 AM EDT Office Visit [facility] [address] [place] [phone] Vivian Oseguera W, SET UP MECHANIC - COMMERCIAL ENGINEER [address] [place] [address] Hospital f/u-Pneumonia [facility] Comment on above: Hospital f/u-Pneumonia Start: 06-19-2023 Diabetic retinal exam Diabetic retinal exam [facility] Comment on above: Postponed from 10/17/2020 (Not Indicated ) Start: 06-19-2023 Glaucoma screening Diabetic retinal exam [facility] Comment on above: Postponed from 10/17/2020 (Not Indicated ) Start: 06-09-2023 Depression Monitoring Depression Monitoring [facility] Start: 06-09-2023 Influenza vaccination [facility] Comment on above: Postponed from 05/27/2022 (Patient Refus ed) Postponed from 04/26 (Patient Refused) Postponed from 04/26 (Patient Refused) Start: 05-16-2023 End: 05-16-2023 Patient encounter procedure 05/16/2023 Office Visit Cardiology Nathan Ardon MD [address] [place] [phone] [facility] Start: 05-15-2023 Screening for malignant neoplasm of breast Breast cancer screen [facility] Start: 03-30-2023 End: 03-30-2023 Patient encounter procedure 03/30/2023 Office Visit Cardiology Nathan Ardon MD [address] [place] [address] [facility] Start: 03-24-2023 End: 03-24-2023 Patient encounter procedure 03/24/2023 Office Visit Primary Care MightVivian, SET UP MECHANIC - COMMERCIAL ENGINEER [address] [facility] [place] [address] [facility] Start: 03-24-2023 COVID-19 Vaccine (#1) COVID-19 Vaccine (#1) [facility] [employer] Comment on above: Postponed from 1973 (Not Indicated ) Start: 03-24-2023 COVID-19 Vaccine (1) COVID-19 Vaccine (1) [employer] Comment on above: Postponed from 1978 (Not Indicated ) Start: 03-24-2023 Depression Monitoring Depression Monitoring [facility] [employer] Start: 03-24-2023 Diabetic foot examination Diabetic foot exam [facility] [employer] Comment on above: Postponed from 03/18/2022 (Patient Refus ed) Start: 03-24-2023 Hemoglobin A1c measurement A1C test (Diabetic or Prediabetic) [facility] Peak 10 Start: 03-24-2023 Hepatitis B vaccine (1 of 3 - Risk 3-dose series) Hepatitis B vaccine (1 of 3 - Risk 3-dose series) [facility] Peak 10 Comment on above: Postponed from 02/29/1992 (Patient Refus ed) Start: 03-24-2023 HIV screening HIV screen [facility] Peak 10 Comment on above: Postponed from 02/29/1988 (Patient Refus ed) Start: 03-24-2023 Pneumococcal 0-64 years Vaccine (2 - PCV) Pneumococcal 0-64 years Vaccine (2 - PCV) [employer] Comment on above: Postponed from 05/10/2019 (Not Indicated ) Start: 01-19-2023 End: 01-19-2023 Patient encounter procedure 01/19/2023 Appointment Sleep Center [facility] Sleep Center Start: 12-08-2022 End: 12-08-2022 Admission to same day surgery center [facility] Comment on above: COLORECTAL CANCER SCREENING, NOT HIGH RI SK Start: 12-08-2022 End: 12-08-2022 Colon ca scrn not hi rsk ind [facility] Start: 12-08-2022 Subsequent hospital visit by physician [facility] Start: 11-23-2022 End: 11-23-2022 Patient encounter procedure 11/23/2022 Appointment Sleep Center [facility] Sleep Center Start: 10-23-2022 Creatinine measurement Creatinine monitoring [facility] Start: 10-23-2022 Lipid panel [facility] Start: 10-23-2022 Potassium monitoring Potassium monitoring [facility] Start: 10-23-2022 Urine screening for protein Diabetic microalbuminuria test [facility] Start: 10-08-2022 End: 10-08-2022 Patient encounter procedure 10/08/2022 Appointment EKG [facility] EKG Start: 10-01-2022 Subsequent hospital visit by physician 10/01/2022 Hospital Encounter Stress Lab Canceled (Other) [facility] Stress Lab Comment on above: Canceled (Other) Start: 09-23-2022 End: 09-23-2022 Patient encounter procedure 09/23/2022 Office Visit Primary Care Vivian Oseguera, SET UP MECHANIC - COMMERCIAL ENGINEER [address] [place] [address] [facility] Start: 09-17-2022 DTaP/Tdap/Td vaccine (1 - Tdap) DTaP/Tdap/Td vaccine (1 - Tdap) [facility] Comment on above: Postponed from 02/29/1992 (Patient Refus ed) Start: 09-17-2022 Influenza vaccination Flu vaccine (#1) [facility] Comment on above: Postponed from 05/27/2021 (Patient Refus ed) Start: 09-10-2022 End: 09-10-2022 Patient encounter procedure 09/10/2022 Appointment Lab [facility] Covid Screening Start: 08-06-2022 End: 08-06-2022 Patient encounter procedure 08/06/2022 Appointment Physical Therapy Vineet Nam, PT [facility] Physical Therapy Start: 07-23-2022 End: 07-23-2022 Patient encounter procedure 07/23/2022 Appointment Physical Therapy Vineet Nam PT [facility] Start: 07-22-2022 End: 07-22-2022 Patient encounter procedure 07/22/2022 Appointment Physical Therapy Mulu Mccray PTA [facility] Start: 07-21-2022 End: 07-21-2022 Patient encounter procedure 07/21/2022 Appointment Physical Therapy Karrie Beltran PTA [facility] Start: 07-19-2022 End: 07-19-2022 Patient encounter procedure [facility] Start: 07-16-2022 End: 07-16-2022 Patient encounter procedure 07/16/2022 Appointment Physical Therapy Vinete Nam PT [facility] Start: 07-14-2022 End: 07-14-2022 Patient encounter procedure 07/14/2022 Appointment Physical Therapy Karrie Beltran PTA [facility] Start: 07-13-2022 End: 07-13-2022 Patient encounter procedure 07/13/2022 Appointment Physical Therapy Mulu Mccray PTA [facility] Start: 07-13-2022 Subsequent hospital visit by physician 07/13/2022 Hospital Encounter Physical Therapy Mulu Mccray PTA [facility] Start: 07-12-2022 End: 07-12-2022 Patient encounter procedure [facility] Start: 07-08-2022 End: 07-08-2022 Patient encounter procedure 07/08/2022 Appointment Physical Therapy Vineet Nam PT [facility] Start: 07-07-2022 End: 07-07-2022 Patient encounter procedure 07/07/2022 Appointment Physical Therapy Karrie Beltran PTA [facility] Start: 07-05-2022 End: 07-05-2022 Patient encounter procedure 07/05/2022 Appointment Physical Therapy Karrie Beltran PTA [facility] Start: 07-02-2022 End: 07-02-2022 Patient encounter procedure 07/02/2022 Appointment Physical Therapy Vineet Nam PT [facility] Start: 06-30-2022 End: 06-30-2022 Patient encounter procedure 06/30/2022 Appointment Physical Therapy Karrie Beltran PTA [facility] Start: 06-28-2022 End: 06-28-2022 Patient encounter procedure 06/28/2022 Appointment Physical Therapy Karrie Beltran PTA [facility] Start: 06-24-2022 End: 06-24-2022 Patient encounter procedure 06/24/2022 Appointment Physical Therapy Vineet Nam, PT [facility] Start: 06-21-2022 End: 06-21-2022 Patient encounter procedure 06/21/2022 Appointment Physical Therapy Génesis Hickman PTA [facility] Start: 06-21-2022 Subsequent hospital visit by physician 06/21/2022 Hospital Encounter Physical Therapy Génesis Hickman PTA [facility] Start: 06-18-2022 End: 06-18-2022 Patient encounter procedure 06/18/2022 Appointment Physical Therapy Karrie Beltran PTA [facility] Start: 06-16-2022 End: 06-16-2022 Patient encounter procedure 06/16/2022 Appointment Physical Therapy Karrie Beltran PTA [facility] Start: 06-14-2022 End: 06-14-2022 Patient encounter procedure 06/14/2022 Appointment Physical Therapy Karrie Beltran ROLL THREADER OPERATOR [facility] Start: 06-11-2022 End: 06-11-2022 Patient encounter procedure 06/11/2022 Appointment Physical Therapy Vineet Nam, PT [facility] Start: 06-09-2022 End: 06-09-2022 Patient encounter procedure 06/09/2022 Appointment Physical Therapy Karrie Beltran PTA [facility] Start: 06-07-2022 End: 06-07-2022 Patient encounter procedure 06/07/2022 Appointment Physical Therapy Karrie Beltran PTA [facility] Start: 06-04-2022 End: 06-04-2022 Patient encounter procedure 06/04/2022 Appointment Physical Therapy Karrie Beltran ROLL THREADER OPERATOR [facility] Start: 06-02-2022 End: 06-02-2022 Patient encounter procedure 06/02/2022 Appointment Physical Therapy Karrie Beltran ROLL THREADER OPERATOR [facility] Start: 06-02-2022 Subsequent hospital visit by physician 06/02/2022 Hospital Encounter Physical Therapy Karrie Beltran PTA [facility] Start: 05-28-2022 End: 05-28-2022 Patient encounter procedure 05/28/2022 Appointment Physical Therapy Vineet Nam, PT [facility] Physical Therapy Start: 05-27-2022 End: 05-27-2022 Patient encounter procedure 05/27/2022 Appointment Physical Therapy Vineet Nam, PT [facility] Physical Therapy Start: 05-27-2022 Influenza vaccination Flu vaccine (#1) [facility] Start: 05-27-2022 End: 05-27-2022 Nursing evaluation of patient and report 05/27/2022 Nurse Only General Surgery Binta Pearl I, DO [address] [place] [address] [facility] Start: 05-25-2022 End: 05-25-2022 Patient encounter procedure 05/25/2022 Appointment Physical Therapy Nathan Garcia, PT [facility] Physical Therapy Start: 05-19-2022 End: 05-19-2022 Patient encounter procedure 05/19/2022 Procedure visit General Surgery Binta Pearl I, DO [address] [place] [address] [facility] Start: 05-12-2022 End: 05-12-2022 Patient encounter procedure 05/12/2022 Office Visit General Surgery Binta Pearl I, DO [address] [place] [address] [facility] Start: 03-28-2022 Diabetic retinal exam Diabetic retinal exam [facility] Comment on above: Postponed from 10/17/2020 (Not Indicated ) Start: 03-18-2022 Diabetic foot examination Diabetic foot exam [facility] Start: 03-18-2022 Hepatitis B vaccine (1 of 3 - Risk 3-dose series) Hepatitis B vaccine (1 of 3 - Risk 3-dose series) [facility] Comment on above: Postponed from 02/29/1992 (Not Indicated ) Start: 03-18-2022 End: 03-18-2022 Patient encounter procedure 03/18/2022 Office Visit Primary Care Vivian Oseguera, SET UP MECHANIC - COMMERCIAL ENGINEER [address] [facility] [place] [address] [facility] Start: 03-18-2022 Screening for malignant neoplasm of cervix Cervical cancer screen [facility] [employer] Phone: Comment on above: Postponed from 06/02/2020 (Not Indicated ) Start: 03-11-2022 Creatinine measurement Creatinine monitoring [facility] [employer] Phone: Start: 03-11-2022 Potassium monitoring Potassium monitoring [facility] [employer] Phone: Start: 02-09-2022 COVID-19 Vaccine (1) COVID-19 Vaccine (1) [facility] Comment on above: Postponed from 1985 (Patient Refus ed) Postponed from 02/28 (Patient Refused) Start: 02-09-2022 Hepatitis C screening Hepatitis C screen [facility] [employer] Phone: Comment on above: Postponed from 1973 (Patient Refus ed) Start: 02-04-2022 End: 02-04-2022 Patient encounter procedure [facility] Start: 01-21-2022 Hemoglobin A1c measurement A1C test (Diabetic or Prediabetic) [facility] Start: 10-15-2021 End: 10-15-2021 ambulatory 10/15/2021 Virtual Visit Gastroenterology Claudia Willett, SET UP MECHANIC - COMMERCIAL ENGINEER [address] [place] [address] [phone] [facility] Start: 09-17-2021 End: 09-17-2021 Patient encounter procedure 09/17/2021 Office Visit Primary Care Vivian Oseguera APRN - COMMERCIAL ENGINEER [address] [place] [facility] [address] [phone] [facility] Start: 09-16-2021 DTaP/Tdap/Td vaccine (1 - Tdap) DTaP/Tdap/Td vaccine (1 - Tdap) [place] Comment on above: Postponed from 02/29/1992 (Patient Refus ed) Start: 09-16-2021 HIV screening HIV screen [place], [place] Comment on above: Postponed from 02/29/1988 (Patient Refus ed) Start: 09-03-2021 End: 09-03-2021 Patient encounter procedure 09/03/2021 Office Visit Cardiology Nathan Ardon MD [address] [place] [address] [facility] Start: 08-13-2021 HbA1c (Bld) [Mass fraction] A1C test (Diabetic or Prediabetic) [place], [place] Start: 08-13-2021 Hemoglobin A1c measurement A1C test (Diabetic or Prediabetic) [facility] [employer] [facility] Phone: Start: 08-13-2021 Lipid panel Lipid screen [place] Start: 05-27-2021 Influenza vaccination Flu vaccine (#1) [facility] [employer] Phone: Start: 03-18-2021 End: 03-18-2021 Office Visit [facility] Kevin Start: 03-12-2021 Hepatitis B vaccine (1 of 3 - Risk 3-dose series) Hepatitis B vaccine (1 of 3 - Risk 3-dose series) [place] Comment on above: Postponed from 02/29/1992 (Not Indicated ) Start: 03-09-2021 End: 03-09-2021 Patient encounter procedure 03/09/2021 Office Visit Gastroenterology Leah Martins MD [address] [place] [address] [phone] [facility] Start: 03-04-2021 End: 03-04-2021 Patient encounter procedure 03/04/2021 Appointment Stress Lab [facility] Stress [facility] Start: 02-09-2021 End: 02-09-2021 Patient encounter procedure 02/09/2021 Office Visit Primary Care Vivian Oseguera, SET UP MECHANIC - COMMERCIAL ENGINEER [address] [place] [address] [phone] [facility] Start: 01-28-2021 End: 01-28-2021 Office Visit 01/28/2021 Office Visit Urology Evan Everett MD [address] [place] [address], [address] [place] [address] [phone] [employer] [facility] [facility] Start: 11-21-2020 Diabetic microalbuminuria test Diabetic microalbuminuria test [employer] Phone: Comment on above: Postponed from 09/25/2019 (Not Indicated ) Start: 10-18-2020 Creatinine measurement Creatinine monitoring [employer] [facility] Start: 10-18-2020 Creatinine monitoring Creatinine monitoring [employer] Phone: Start: 10-18-2020 Potassium monitoring Potassium monitoring [employer] Phone: Start: 10-17-2020 Diabetic retinal exam Diabetic retinal exam [facility] [employer] Start: 09-11-2020 End: 09-11-2020 Office Visit 09/11/2020 Office Visit Primary Care Canelo, Vivian Combs, SET UP MECHANIC - COMMERCIAL ENGINEER [address] [place] [address] [phone] [facility] Start: 09-10-2020 DTaP/Tdap/Td vaccine (1 - Tdap) DTaP/Tdap/Td vaccine (1 - Tdap) [employer] Phone: Comment on above: Postponed from 02/29/1992 (Patient Refus ed) Postponed from 02/28 (Patient Refused) Start: 09-10-2020 HIV screen HIV screen [employer] Phone: Comment on above: Postponed from 02/29/1988 (Patient Refus ed) Start: 09-10-2020 HIV screening HIV screen [employer] [place], [place] Comment on above: Postponed from 02/29/1988 (Patient Refus ed) Start: 07-20-2020 Creatinine monitoring Creatinine monitoring [facility] , [place] Start: 07-20-2020 Potassium monitoring Potassium [place] Start: 06-11-2020 [object Object] Diabetic foot exam [place] Start: 06-11-2020 Diabetic foot examination Diabetic foot exam [place] Start: 06-04-2020 Creatinine monitoring Creatinine monitoring [place], [place] Start: 06-04-2020 Lipid panel Lipid screen [place] Start: 06-04-2020 Lipid screen Lip[place] Start: 06-04-2020 Potassium monitoring Potassium monitoring [place] Start: 06-02-2020 Cervical cancer screen Cervical cancer screen [place] Start: 06-02-2020 Screening for malignant neoplasm of cervix [facility] Start: 05-27-2020 Influenza vaccination Flu vaccine (#1) [place] Start: 03-28-2020 HbA1c (Bld) [Mass fraction] A1C test (Diabetic or Prediabetic) [place] Start: 03-25-2020 Creatinine monitoring Creatinine monitoring [place] Start: 03-25-2020 Potassium monitoring Potassium monitoring [place] Start: 03-12-2020 End: 03-12-2020 Office Visit [facility] Start: 02-29-2020 Diabetic retinal exam Diabetic retinal exam [place] Comment on above: Postponed from 01/02/2019 (Patient Refus ed) Start: 02-29-2020 Hepatitis B Vaccine (1 of 3 - Risk 3-dose series) Hepatitis B Vaccine (1 of 3 - Risk 3-dose series) [place] Comment on above: Postponed from 02/29/1992 (Patient Refus ed) Start: 01-28-2020 End: 01-28-2020 Office Visit [facility] Start: 10-20-2019 A1C test (Diabetic or Prediabetic) A1C test (Diabetic or Prediabetic) [place] Start: 10-15-2019 End: 10-15-2019 Office Visit 10/15/2019 Office Visit Cardiology Nathan Ardon MD [address] [place] [address] [place] [id number] [facility] Start: 09-25-2019 Diabetic microalbuminuria test Diabetic microalbuminuria test [place] Start: 09-10-2019 End: 09-10-2019 Office Visit 09/10/2019 Office Visit Primary Care Vivian Oseguera, SET UP MECHANIC - COMMERCIAL ENGINEER [address] [place] [address] [phone] [facility] Start: 09-04-2019 End: 09-04-2019 Office Visit 09/04/2019 Office Visit Otolaryngology Hever Olivera PA [address] [place] [address] [phone] [facility] Start: 09-03-2019 A1C test (Diabetic or Prediabetic) A1C test (Diabetic or Prediabetic) [place] Start: 08-24-2019 DTaP/Tdap/Td vaccine (1 - Tdap) DTaP/Tdap/Td vaccine (1 - Tdap) [place] Comment on above: Postponed from 02/29/1992 (Patient Refus ed) Postponed from 02/28 (Patient Refused) Start: 08-24-2019 HIV screen HIV screen [place], [place] Comment on above: Postponed from 02/29/1988 (Patient Refus ed) Start: 08-22-2019 End: 08-22-2019 Appointment 08/22/2019 Appointment Radiology [facility] Start: 08-21-2019 Lipid screen Lipid screen [place] Start: 08-16-2019 End: 08-16-2019 Appointment 08/16/2019 Appointment Radiology [facility] Start: 08-03-2019 End: 08-03-2019 Appointment 08/03/2019 Appointment Radiology [facility] Ultrasound Start: 07-26-2019 End: 07-26-2019 Office Visit 07/26/2019 Office Visit Otolaryngology Hever Olivera PA [address] [place] [address] [phone] [facility] Start: 06-11-2019 End: 06-11-2019 Office Visit 06/11/2019 Office Visit Primary Care Vivian Oseguera, SET UP MECHANIC - COMMERCIAL ENGINEER [address] [id number] [phone] [facility] Start: 05-31-2019 A1C test (Diabetic or Prediabetic) A1C test (Diabetic or Prediabetic) [place] Start: 05-27-2019 Influenza vaccination Flu vaccine (#1) [place] Start: 05-10-2019 [object Object] Diabetic foot exam [place] Start: 05-10-2019 Pneumococcal 0-64 years Vaccine (2 - PCV) Pneumococcal 0-64 years Vaccine (2 - PCV) [facility] Start: 2018 Screening for malignant neoplasm of colon [facility] Start: 2003 Screening for malignant neoplasm of cervix HPV (without or with Pap) [facility] Start: 02-29-1992 DTaP/Tdap/Td vaccine (1 - Tdap) DTaP/Tdap/Td vaccine (1 - Tdap) [facility] Start: 1991 Urine screening for protein Diabetic Alb to Cr ratio (uACR) test [facility] Start: 1989 COVID-19 Vaccine (1) COVID-19 Vaccine (1) [facility] [employer] Phone: Start: 02-29-1988 HIV screening HIV screen [facility] Start: 1985 Depression Monitoring Depression Monitoring [facility] Start: 1973 Hepatitis C screening Hepatitis C screen [place], [place] End: 12-28-2019 AMINO ACID, QUANT AMINO ACID, QUANT Lab Routine Once for 1 Occurrences starting 12/28/2019 until 12/28/2019 [place] Comment on above: Once for 1 Occurrences starting 12/28/19 20 until 12/28/2019 AMINO ACID, QUANT AMINO ACID, QU ANT Lab Routine 12/28/2019 2:54 PM EDT [place] End: 03-11-2021 Anti-smooth muscle antibody Anti-smooth muscle antibody Lab Routine Abnormal LFTs 1 Occurrences starting 03/11/2021 until 03/11/2021 [facility] [employer] Phone: Comment on above: 1 Occurrences starting 03/11/2021 until 03/11/2021 End: 06-15-2023 Basic Metabolic Panel w/ Reflex to MG Basic Metabolic Panel w/ Reflex to MG Lab Routine Daily for 5 Days starting 06/11/2023 until 06/15/2023, 4 completed [employer] Comment on above: Daily for 5 Days starting 06/11/2023 unt il 06/15/2023, 4 completed Blood Culture 1 Blood Culture 1 Microbiology STAT 06/10/2023 11:30 PM EDT [employer] End: 03-03-2021 Cardiac stress test EKG study Type Echo stress test Echocardiography Routine Essential hypertension Chest discomfort Hyperlipidemia, unspecified hyperlipidemia type Tobacco abuse 1 Occurrences starting 03/03/2021 until 03/03/2021 [employer] Phone: Comment on above: 1 Occurrences starting 03/03/2021 until 03/03/2021 End: 12-28-2019 Carnitine Carnitine Lab Routine Once for 1 Occurrences starting 12/28/2019 until 12/28/2019 [employer] [place] Comment on above: Once for 1 Occurrences starting 12/28/19 until 12/28/2019 Carnitine Carnitine Lab Ro utine 12/28/2019 2:54 PM EDT [employer] [place] End: 06-15-2023 CBC W Auto Differential panel - Blood CBC auto differential Lab Routine Daily for 5 Days starting 06/11/2023 until 06/15/2023, 4 completed [employer] Comment on above: Daily for 5 Days starting 06/11/2023 unt mt 06/15/2023, 4 completed End: 10-08-2022 Continuous cardiac monitoring, >2 up to 14 days Continuous cardiac monitoring, >2 up to 14 days Cardiac Services Routine Syncope and collapse Preop cardiovascular exam Dizziness Primary hypertension Mixed hyperlipidemia Tobacco abuse counseling 1 Occurrences starting 10/08/2022 until 10/08/2022 [employer] Work Phone: Comment on above: 1 Occurrences starting 10/08/2022 until 10/08/2022 Continuous pulse oximetry Pulse oximetry, continuous Respiratory Care Routine Every 4hr until discontinued starting 06/11/2023 [employer] Comment on above: Every 4hr until discontinued starting End: 09-30-2020 COVID-19 COVID-19 Lab Routine Preoperative testing 1 Occurrences starting 09/30/2020 until 09/30/2020 [place] Comment on above: 1 Occurrences starting 09/30/2020 until 09/30/2020 COVID-19 COVID-19 Lab [facility] [place] Preoperative testing 09/30/2020 1:20 PM EST [place] End: 11-26-2021 COVID-19 [employer] Phone: Comment on above: Once for 1 Occurrences starting 11/27/19 until 11/26/2021 End: 04-09-2022 COVID-19 [employer] Phone: Comment on above: Once for 1 Occurrences starting 04/09/20 until 04/09/2022 End: 09-03-2022 COVID-19 [employer] Phone: Comment on above: Once for 1 Occurrences starting 09/03/20 until 09/03/2022 End: 09-10-2022 COVID-19 [employer] Phone: Comment on above: Once for 1 Occurrences starting 09/10/20 until 09/10/2022 End: 07-08-2020 Covid-19 Ambulatory Covid-19 Ambulatory Lab Routine Once for 1 Occurrences starting 07/08/2020 until 07/08/2020 [place] Comment on above: Once for 1 Occurrences starting 07/08/20 20 until 07/08/2020 Covid-19 Ambulatory Covid-19 Amb ulatory Lab Routine 07/08/2020 1:06 PM EDT [place] Culture, Blood 2 Culture, Blood 2 Microbiology STAT 06/10/2023 11:40 PM EDT [employer] End: 01-28-2021 Culture, Urine Culture, Urine Microbiology Routine Renal stones Renal colic 1 Occurrences starting 01/28/2021 until 01/28/2021 [employer] Phone: Comment on above: 1 Occurrences starting 01/28/2021 until 01/28/2021 Culture, Urine Culture, Urine Microbiology Routine Renal stones Renal colic 01/28/2021 11:00 AM EDT [employer] Work Phone: EKG 12 Lead EKG 12 Lead ECG Routine 08/06/2022 2:34 PM EST [employer] Phone: EKG 12 Lead EKG 12 Lead ECG STAT 08/06/2022 5:11 PM EST [employer] Work Phone: End: 12-28-2019 Factor 8 Assay Factor 8 Assay Lab Routine Once for 1 Occurrences starting 12/28/2019 until 12/28/2019 [facility] [employer] [place] Comment on above: Once for 1 Occurrences starting 12/28/19 20 until 12/28/2019 Factor 8 Assay Factor 8 Assay L ab Routine 12/28/2019 2:54 PM EDT [facility] [employer] [place] End: 12-28-2019 Fibrinogen Fibrinogen Lab Routine Once for 1 Occurrences starting 12/28/2019 until 12/28/2019 [place] Comment on above: Once for 1 Occurrences starting 12/28/19 20 until 12/28/2019 Fibrinogen Fibrinogen Lab R outine 12/28/2019 2:54 PM T [facility] [place] End: 12-08-2022 Glucose [Mass/volume] in Serum or Plasma POCT Glucose Point of Care Testing STAT One Time for 1 Occurrences starting 12/08/2022 until 12/08/[address] [facility] Peak 10 Comment on above: One Time for 1 Occurrences starting 11/24 until 12/08/2022 Glucose [Mass/volume ] in Serum or Plasma POCT Glucose Point of Care Testing STAT As Needed until discontinued starting 06/11/2023 [employer] Comment on above: As Needed until discontinued starting Glucose [Mass/volume ] in Serum or Plasma [employer] Comment on above: As Needed until discontinued starting 4X Daily (AC & HS) u ntil discontinued starting 06/11/2023 End: 08-13-2020 HbA1c (Bld) [Mass fraction] Hemoglobin A1C Lab Routine Once for 1 Occurrences starting 08/13/2020 until 08/13/2020 [employer] [facility] Comment on above: Once for 1 Occurrences starting 08/13/20 20 until 08/13/2020 HbA1c (Bld) [Mass fraction] Hemoglobin A1C Lab Routine 08/13/2020 11:47 AM EST [facility] End: 09-21-2022 Hemoglobin A1c/Hemoglobin.total in Blood [employer] Phone: Comment on above: 1 Occurrences starting 09/21/2022 until 09/21/2022 End: 03-11-2021 Hepatitis A Antibody, Total Hepatitis A Antibody, Total Lab Routine Abnormal LFTs 1 Occurrences starting 03/11/2021 until 03/11/2021 [employer] Phone: Comment on above: 1 Occurrences starting 03/11/2021 until 03/11/2021 Hepatitis A Antibody , Total Hepatitis A Antibody, Total Lab Routine Abnormal LFTs 03/11/2021 12:57 PM EDT [employer] Phone: End: 03-11-2021 Hepatitis B surface antibody Hepatitis B surface antibody Lab Routine Abnormal LFTs 1 Occurrences starting 03/11/2021 until 03/11/2021 [employer] Phone: Comment on above: 1 Occurrences starting 03/11/2021 until 03/11/2021 Home BIPAP or CPAP Home BIPAP or CPAP Respiratory Care Routine QHS until discontinued starting 06/11/2023 [employer] Comment on above: QHS until discontinued starting 06/11/20 23 End: 11-23-2022 Home sleep study Home sleep study Sleep Center Routine Tired Fatigue, unspecified type LAYNE (obstructive sleep apnea) 1 Occurrences starting 11/23/2022 until 11/23/2022 [employer] Phone: Comment on above: 1 Occurrences starting 11/23/2022 until 11/23/2022 End: 03-11-2021 Immunoglobulins, Quantitative Immunoglobulins, Quantitative Lab Routine Abnormal LFTs 1 Occurrences starting 03/11/2021 until 03/11/2021 [employer] Phone: Comment on above: 1 Occurrences starting 03/11/2021 until 03/11/2021 Immunoglobulins, Quantitative Immunoglobulins, Quantitative Lab Routine Abnormal LFTs 03/11/2021 12:57 PM EDT [employer] Phone: End: 12-28-2019 MISCELLANEOUS TESTING MISCELLANEOUS TESTING Lab Routine Once for 1 Occurrences starting 12/28/2019 until 12/28/2019 [employer] [facility] Comment on above: Once for 1 Occurrences starting 12/28/19 until 12/28/2019 MISCELLANEOUS TESTING MISCELLANE OUS TESTING Lab Routine 12/28/2019 4:12 PM EDT [employer] [facility] End: 03-11-2021 MITOCHONDRIAL ANTIBODIES, M2, IGG MITOCHONDRIAL ANTIBODIES, M2, IGG Lab Routine Once for 1 Occurrences starting 03/11/2021 until 03/11/2021 [employer] Phone: Comment on above: Once for 1 Occurrences starting 03/11/20 until 03/11/2021 MITOCHONDRIAL ANTIBO DIES, M2, IGG MITOCHONDRIAL ANTIBODIES, M2, IGG Lab Routine 03/11/2021 12:57 PM EDT [employer] Phone: End: 03-11-2021 MITOCHONDRIAL ANTIBODY W/REFLEX TITER MITOCHONDRIAL ANTIBODY W/REFLEX TITER Lab Routine Abnormal LFTs 1 Occurrences starting 03/11/2021 until 03/11/2021 [employer] Phone: Comment on above: 1 Occurrences starting 03/11/2021 until 03/11/2021 Nasal Cannula Oxygen Nasal Cannu la Oxygen Respiratory Care Routine Daily until discontinued starting 06/11/2023 [facility] [employer] Comment on above: Daily until discontinued starting 2022 End: 08-16-2019 NM GASTRIC EMPTYING NM GASTRIC EMPTYING Imaging Routine Generalized abdominal pain 1 Occurrences starting 08/16/2019 until 08/16/2019 [employer] [facility] Comment on above: 1 Occurrences starting 08/16/2019 until 08/16/2019 End: 03-11-2021 Nuclear Ab [Titer] in Serum by Immunofluorescence [facility] Lab Routine Abnormal LFTs 1 Occurrences starting 03/11/2021 until 03/11/2021 [employer] Phone: Comment on above: 1 Occurrences starting 03/11/2021 until 03/11/2021 Nuclear Ab [Titer] i n Serum by Immunofluorescence [facility]AN[facility] Lab Routine Abnormal LFTs 03/11/2021 12:57 PM EDT [employer] Phone: Oxygen therapy [[facility] Data Set] Initiate Oxygen Therapy Protocol Respiratory Care Routine As Needed until discontinued starting 06/11/2023 [employer] Comment on above: As Needed until discontinued starting Positive Expiratory Pressure Therapy [employer] Comment on above: 4X Daily until discontinued starting As Needed until disc ontinued starting 06/11/2023 End: 01-19-2023 Sleep study with PAP titration Sleep study with PAP titration Sleep Center Routine LAYNE (obstructive sleep apnea) 1 Occurrences starting 01/19/2023 until 01/19/2023 [employer] Phone: Comment on above: 1 Occurrences starting 01/19/2023 until 01/19/2023 End: 03-11-2021 Smooth Muscle Antibody Quant Smooth Muscle Antibody Quant Lab Routine Once for 1 Occurrences starting 03/11/2021 until 03/11/2021 [employer] Phone: Comment on above: Once for 1 Occurrences starting 03/11/20 21 until 03/11/2021 Smooth Muscle Antibo dy Quant Smooth Muscle Antibody Quant Lab Routine 03/11/2021 12:57 PM EDT [employer] Phone: End: 07-19-2022 Smooth Muscle Antibody Quant [employer] Phone: Comment on above: 1 Occurrences starting 07/19/2022 until 07/19/2022 Surgical Pathology Surgical Path ology Lab Routine Screening for colon cancer Release Upon Ordering for 1 Occurrences starting 12/08/2022 [employer] Phone: Comment on above: Release Upon Ordering for 1 Occurrences starting 12/08/2022 Vibratory Airway Clearance [employer] Comment on above: As Needed until discontinued starting TID until discontinu ed starting 06/11/2023 Immunizations Immunization Date Immunization Notes Care Provider Lawanda downing 03-25-2023 zoster vaccine recombinant Emiliano Ray MD [facility] 03-24-2023 zoster recombinant adjuvanted vaccine (SHINGRIX) 50 MCG/0.5ML SUSR injection Emiliano Segundo MD [facility] 07-25-2020 influenza, injectabl e, quadrivalent, contains preservative [facility] 06-11-2019 influenza, injectabl e, quadrivalent, preservative free Vivian Might [facility] 08-24-2018 influenza, injectabl e, quadrivalent, preservative free Vivian Might [place], [place] 05-10-2018 pneumococcal polysac charide vaccine, 23 valent Vivian Might [facility] 07-09-2015 influenza virus vacc ine, unspecified formulation [facility]ian [facility] 07-04-2013 influenza virus vacc ine, unspecified formulation [facility]2009 novel influenza-H1N1 -09, preservative-free, injectable Vivian Might [place], [place] Payers Date Payer Category Payer Self-pay [id number] 2022 Unknown 2021 Unknown BC[place] P PO [id number] 2021-Present [phone] [id number] [place] [address] [id number] [id number] .7.3.031407.315 2020 Private Health Insurance [id number] 1.2.840.420394.1.13.239.2 .7.3.322208.315 2017 Unknown [employer] [address] xxxxxxxxxxxx 2017-Present [phone] [address] [place] [address] xxxxxxxxxxxx 1.2.840.636185.1.13.239.2 .7.3.470915.315 1973 Unknown [id number] 2.16.840.1.093451.3.579.2 .182 1973 Unknown [id number] 2.16.840.1.005906.3.579.2 .593 1973 Unknown [id number] 2.16.840.1.151866.3.579.2 .593 1973 Unknown [id number] 2.16.840.1.830140.3.579.2 .593 1973 Unknown [id number] 2.16.840.1.705886.3.579.2 .593 1973 Unknown [id number] 2.16.840.1.472332.3.579.2 .593 1973 Unknown [id number] 2.16.840.1.641689.3.579.2 .593 1973 Unknown [id number] 2.16.840.1.164898.3.579.2 .593 1973 Unknown [id number] 2.16.840.1.054845.3.579.2 .593 1973 Unknown [id number] 2.16.840.1.720950.3.579.2 .593 1973 Unknown [id number] 2.16.840.1.235494.3.579.2 .593 1973 Unknown [id number] 2.16.840.1.973167.3.579.2 .593 1973 Unknown [id number] 2.16.840.1.047941.3.579.2 .593 1973 Unknown [id number] 2.16.840.1.413998.3.579.2 .593 1973 Unknown [id number] 2.16.840.1.827547.3.579.2 .593 1973 Unknown [id number] 2.16.840.1.808310.3.579.2 .593 1973 Unknown [id number] 2.16.840.1.421178.3.579.2 .593 1973 Unknown [id number] 2.16.840.1.221165.3.579.2 .196 1973 Unknown [id number] 2.16.840.1.931108.3.579.2 .196 1973 Unknown [id number] 2.16.840.1.011022.3.579.2 .196 1973 Unknown [id number] 2.16.840.1.754405.3.579.2 .196 1973 Unknown [id number] 2.16.840.1.130180.3.579.2 .196 1973 Unknown [id number] 2.16.840.1.932611.3.579.2 .173 1973 Unknown [id number] 2.16.840.1.927534.3.579.2 .173 1973 Unknown [id number] 2.16.840.1.725131.3.579.2 .173 1973 Unknown [id number] 2.16.840.1.729783.3.579.2 .173 1973 Unknown [id number] 2.16.840.1.529845.3.579.2 .173 1973 Unknown [id number] 2.16.840.1.980914.3.579.2 .173 1973 Unknown [id number] 2.16.840.1.609750.3.579.2 .173 1973 Unknown [id number] 2.16.840.1.614932.3.579.2 .173 1973 Unknown [id number] 2.16.840.1.527628.3.579.2 .173 1973 Unknown [id number] 2.16.840.1.949240.3.579.2 .173 1973 Unknown [id number] 2.16.840.1.705474.3.579.2 .173 1973 Unknown [id number] 2.16.840.1.420720.3.579.2 .173 1973 Unknown [id number] 2.16.840.1.557894.3.579.2 .1973 Unknown [id number] 2.16.840.1.490124.3.579.2 .1973 Unknown [id number] 2.16.840.1.302374.3.579.2 .173 1973 Unknown [id number] 2.16.840.1.483346.3.579.2 .1973 Unknown [id number] 2.16.840.1.192077.3.579.2 .1973 Unknown [id number] 2.16.840.1.904471.3.579.2 .1973 Unknown [id number] 2.16.840.1.229818.3.579.2 .173 1973 Unknown [id number] 2.16.840.1.371880.3.579.2 .1973 Unknown [id number] 2.16.840.1.880046.3.579.2 .1973 Unknown [id number] 2.16.840.1.006555.3.579.2 .1973 Unknown [id number] 2.16.840.1.331974.3.579.2 .1973 Unknown [id number] 2.16.840.1.412315.3.579.2 .173 1973 Unknown [id number] 2.16.840.1.686828.3.579.2 .1973 Unknown [id number] 2.16.840.1.974820.3.579.2 .173 1959 Unknown [id number] Unknown [id number] 2.16.840.1.010062.3.579.2 .531 Unknown [id number] 2.16.840.1.778614.3.579.2 .531 Unknown [id number] 2.16.840.1.480699.3.579.2 .531 Unknown [id number] 2.16.840.1.420364.3.579.2 .531 Social History Date Type Detail Facility Start: 07-13-2019 End: 05-19-2022 Tobacco smoking status [facility]IS [facility] every [facility] History of tobacco use Cigarette Smoker [place] Start: 07-13-2019 End: 03-24-2023 Cigarettes smoked current (pack per day) - Reported [facility] [employer] Start: 07-13-2019 End: 03-24-2023 Alcohol intake No [facility] Start: 1975 Sex Assigned At Not on file [facility] [place], [place] Start: 07-26-2019 End: 06-16-2023 Alcohol intake Current non-drinker of alcohol (finding) [place], [place] Start: 06-24-2020 End: 05-19-2022 Tobacco use and exposure Never used [place], [place] Start: 07-27-2022 End: 12-08-2022 Exposure to SARS-CoV-2 (event) Not sure [place] Start: 03-18-2021 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 Never [employer] How many standard drinks containing alcohol do you have on a typical day? Patient does not drink [employer] (I/We) worried wheth er (my/our) food would run out before (I/we) got money to buy more. DK or Refused [employer] Medical Equipment Procedure Code Equipment Code Equipment Origin al Text Equipment Identifier Dates 1 each by Does n ot apply route 5 times daily [id number] Start: 2019 Clinical Notes 12-04-2020 to 08-23-2023 Discharge InstructionsAttaJohnnie Galaviz RN - 06/14/2023 1:22 PM Edwardo Danielle MD - 06/14/2023 11:52 AM Chi Hickman PTA - 06/14/2023 10:29 AM Radha Dobbins RN - 06/13/2023 11:42 PM EDT Note Date & Type Note Facility 08-23-2023 Note This is a Telehealth Appointment *This visit was conducted via Telehealth with real time interactive synchronized audio and video communication. The patient provided written consent for treatment. The patient understands their rights, the HIPAA risks and that they will be charged accordingly for the services rendered. The patient was seen via telemedicine while they were at: home This telemedicine visit was conducted due to: transportation and travel distance History of Present Illness 48-year-old female here for follow-up for DM 2. Patient was diagnosed in 2001 with type 2 diabetes. Treatment is complicated by gastroparesis for which she follows with a GI specialist at the [facility]. Due to this has not tolerated several diabetic medications including GLP-1 agonists and metformin. Last visit 08/25/22 at which time no medication adjustments were made. Since last visit patient reports she has been unable to continue kena sensors due to lack of follow-up and is finger poking once per day. Readings generally elevated along with A1c 9.2% prior to today's visit. Patient reports that been higher since she was ill with pneumonia and hospitalized. Is recovered and feels are trending back towards goal fasting when monitoring. Denies issues getting or taking her medicine. Continues to tolerate her medicine well. Denies current complaints of chest pain, shortness of breath, vision changes, headaches. Triglycerides noted to be significantly elevated again Lab work prior to today's visit. Patient reports diligence with atorvastatin as well as fenofibrate. Will increase doses after today's visit Diet: Generalized diet. Continues to eat 1 meal per day due to gastroparesis Exercise: Limited, no regular routine Dilated eye exam: due Podiatry visit: No Diabetic kidney disease: No Retinopathy: No Neuropathy: Yes using gabapentin 600 mg 3 times a day Brought glucometer to visit: Yes freestyle kena checking several times per day Hypoglycemic episodes: No Hyperglycemic episodes: Yes Current treatment: Breakfast: U500 120u + Jardiance 10mg + Humalog sliding Scale Lunch: Humalog sliding Scale Dinner: U500 120u + Humalog sliding Scale Bedtime: Humalog Sliding scale Blood sugar 150-200 2u Blood sugar 201-250 4u Blood sugar 251-300 6u Blood sugar 301-350 8u Blood sugar 351-400 10u Blood sugar >400 12u Recent labs: A1c 9.2 (08/03/2023) 7.8 (08/25/2022) 9 (05/19/22) 9.8 (10/23/2021) 8.3 (06/05/2021) 10.8 (12/28/2019) Weight (kg): 92.3 (08/23/2023) 95.6 (08/25/2022) 95.2 (05/19/22) 86 (10/27/2021) 86.1 (06/05/2021) 84.1 (08/13/20) BMI: 33.9 (08/23/2023) 35.1 (08/25/2022) 35 (05/19/22) 31.5 (10/27/2021) 31.6 (06/05/2021) 08/03/2023 Creatinine 0.7 GFR >60 AST 27, ALT 33 cholesterol 334, HDL 17, LDL not calculated due to elevated triglycerides, triglycerides 2187 TSH 0.46 Urine microalbumin/creatinine ratio <30 Physical Exam Height 165 cm, weight 92.3 kg, BMI 33.9, temp 98 No physical exam completed Additional Vitals No qualifying data available. Assessment/Plan Assessment: DM 2: Reported blood sugar readings and A1c are above goal. Will await more blood sugar data prior to making adjustments. Encouraged consistency with dosing of insulins as well as monitoring blood sugars. Will renew kena sensors as well as medications at today's visit. Encouraged patient to call blood sugars to the office in 2 weeks. We will increase atorvastatin as well as fenofibrate to lower cholesterol and triglycerides at today's visit. Follow-up in 3 months Plan: See PI Discussed goals of treatment Accomplishing these goals will decrease risk of new or advancing DM complications to include blindness, kidney failure, heart attack, stroke, and limb amputation Your goals: Fasting and pre-meal blood sugars 80-130 1-2 hour after meal, bedtime and overnight blood sugars <180 Hemoglobin A1c <7% without frequent low blood sugars 5-10% weight loss if BMI >25 Blood pressure <140/90 LDL cholesterol <100 Avoid diabetic complications to eyes, nerves, heart, kidneys, blood vessels and extremities -To lower BS and A1c: Breakfast: U500 120u + Jardiance 10mg + Humalog sliding Scale Lunch: Humalog sliding Scale Dinner: U500 120u + Humalog sliding Scale Bedtime: Humalog Sliding scale Blood sugar 150-200 2u Blood sugar 201-250 4u Blood sugar 251-300 6u Blood sugar 301-350 8u Blood sugar 351-400 10u Blood sugar >400 12u -Check blood sugars 4 times per day (before breakfast, lunch, dinner, and at bedtime) -Check blood sugar if you think you could be severely low <60-70 and treat low blood sugar using rule of 15's. Eat 15 g carbs (3 glucose tabs or 4 ounces of fruit juice or regular soda, or 6-7 hard candies, or 1 tablespoon or sugar). If blood sugar remains <80 after eating 15 g of carbs and waiting 15 minutes may repeat rule of 15's. -Continue to eat 2116-5713 calories per day. Best to consume calories divided into 3 meals per day. Avoid all sugared pop (more content not included)... 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 Marie for your syncope. Also follow-up with your neurologist for your syncope. Make sure you are drinking plenty of fluids, getting up slowly and cautiously, and being careful of your position with coughing. Testing today is improved. The following attachments cannot be sent through Care Everywhere.Fainting ([place])documented in this encounter [facility] 06-14-2023 History of Present illness Narrative Discharge instructions, follow up appointment and medications reviewed with the patient and spouse and appropriate educational materials and side effects teaching were provided. Physician Progress Note PATIENT: RISA WARNER CSN #: [id number] : 1975 ADMIT DATE: 06/10/2023 8:42 PM DISCH DATE: RESPONDING PROVIDER #: Emanuel Danielle MD QUERY TEXT: Pt admitted with Pneumonia. Pt noted to have WBC 12.6, 16.4, heart rate up to 112, and mild low blood pressures. If possible, please document in the progress notes and discharge summary if you are evaluating and /or treating any of the following: The medical record reflects the following: Risk Factors: Pneumonia Clinical Indicators: WBC 12.6, 16.4, 13.4, 11.4, lactic sepsis WNL, PCT WNL, HR 74-112, no fever, no elevated respiratory rate, BP's 87/46, 94/39, 101/51 Treatment: IV Rocephin, IV Zithromax, IVF Thank you! Chauncey Colunga, BSN,RN, CRCR RN Clinical Book Illustrator Options provided: -- Sepsis due to pneumonia confirmed present on admission -- Pneumonia without sepsis -- Other - I will add my own diagnosis -- Disagree - Not applicable / Not valid -- Disagree - Clinically unable to determine / Unknown -- Refer to Clinical Documentation Reviewer PROVIDER RESPONSE TEXT: The diagnosis of sepsis due to pneumonia was confirmed as present on admission. Query created by: Chauncey Colunga on 06/14/2023 11:42 AM Electronically signed by: Emanuel Danielle MD 06/14/2023 11:51 AM Physical Therapy Facility/Department: [facility] Daily Treatment Note NAME: Risa Warner : 1975 Date of Service: 06/14/2023 Discharge Recommendations: Continue to assess pending progress Patient Diagnosis(es): The primary encounter diagnosis was Recurrent syncope. A diagnosis of Pneumonia of both lower lobes due to infectious organism was also pertinent to this visit. Assessment Assessment: PT. able to ambulate [id number] with no AD, SBA for safety with no noted LOB. Transfers and bed mobility:SUP. Standing sink exercises B LE x15 Activity Tolerance: Patient tolerated treatment well Plan Physcial Therapy Plan General Plan: 2 times a day 7 days a week Specific Instructions for Next Treatment: 1x/daily on weekends and holidays Current Treatment Recommendations: Strengthening;Balance training;Gait training;Functional mobility training;Stair training;Home exercise program;Therapeutic activities;Safety education & training;Neuromuscular re-education;Transfer training;Patient/Caregiver education & training;Endurance training;Pain management Restrictions Restrictions/Precautions Restrictions/Precautions: General Precautions, Fall Risk Subjective Subjective Subjective: Pt. in bed upon arrival, agreeable to work with therapy at this time. Pain: denies Orientation Overall Orientation Status: Within Normal Limits Objective Bed Mobility Training Bed Mobility Training: Yes Overall Level of Assistance: Supervision;Modified independent;Assist X1 Interventions: Verbal cues Rolling: Supervision;Modified independent;Assist X1 Supine to Sit: Supervision;Modified independent;Assist X1 Scooting: Supervision;Modified independent;Assist X1 Transfer Training Transfer Training: Yes Overall Level of Assistance: Stand-by assistance;Assist X1;Supervision Interventions: Safety awareness training Sit to Stand: Stand-by assistance;Assist X1;Supervision Stand to Sit: Stand-by assistance;Assist X1;Supervision Gait Training Gait Training: Yes Gait Overall Level of Assistance: Stand-by assistance;Assist X1 Interventions: Safety awareness training Base of Support: Widened Speed/Dina: Slow Distance (ft): 170 Feet PT Exercises Exercise Treatment: standing exercises B Le x15 Safety Devices Type of Devices: Call light within reach;Nurse notified;Left in bed Goals Short Term Goals Time Frame for Short Term Goals: 20 days Short Term Goal 1: Pt will be educated on her POC and HEP Short Term Goal 2: Pt will perform all transfers independently in order to return to PLOF Short Term Goal 3: Pt will ambulate >/=150 feet no AD independently in order to return to PLOF Short Term Goal 4: Pt will increase dynamic standing balance to Good in order to reduce fall risk Short Term Goal 5: Pt will tolerated 20 minutes of ambulation/exercises with minimal rest breaks in order to increase endurance Patient Goals Patient Goals : to get home Education Patient Education Education Given To: Patient Education Provided: Role of Therapy;Plan of Care;Home Exercise Program Education Method: Verbal Barriers to Learning: None Education Outcome: Verbalized understanding;Demonstrated understanding Therapy Time Individual Concurrent Group Co-treatment Time In 0743 Time Out 0807 Minutes 24 Génesis Hickman PTA Patient up walking the rich. Asking about being discharged. [facility] at bedside for shift assessment. Patient sitting up in bed, respirations are even and unlabored while on room air. Vitals obtained and assessment completed, see flowsheet for details. Medications given, see MAR for details. Snacks and fresh water provided. pt denies further needs at this time. Call light in reach. Physical Therapy Facility/Department: [facility] Daily Treatment Note NAME: Risa Warner : 1975 Date of Service: 06/13/2023 Discharge Recommendations: Continue to assess pending progress Patient Diagnosis(es): The primary encounter diagnosis was Recurrent syncope. A diagnosis of Pneumonia of both lower lobes due to infectious organism was also pertinent to this visit. Assessment Assessment: Pt. able to ambulate with no AD, [id number],30ftx1 with one noted imbalance, able to self correct and required one standing RB d/t fatigue. Seated exercises B LE x20. Bed mobility: SUP. Transfers:SBA Activity Tolerance: Patient tolerated treatment well;Patient limited by pain Plan Physcial Therapy Plan General Plan: 2 times a day 7 days a week Specific Instructions for Next Treatment: 1x/daily on weekends and holidays Current Treatment Recommendations: Strengthening;Balance training;Gait training;Functional mobility training;Stair training;Home exercise program;Therapeutic activities;Safety education & training;Neuromuscular re-education;Transfer training;Patient/Caregiver education & training;Endurance training;Pain management Restrictions Restrictions/Precautions Restrictions/Precautions: General Precautions, Fall Risk Subjective Subjective Subjective: Pt. in bathroom finishing with LUQUE upon arrival, agreeabel to therapy Pain: back pain but does not rate Orientation Overall Orientation Status: Within Normal Limits Objective Bed Mobility Training Bed Mobility Training: Yes Overall Level of Assistance: Assist X1;Supervision Interventions: Safety awareness training;Verbal cues Rolling: Stand-by assistance;Assist X1;Supervision Supine to Sit: Supervision;Stand-by assistance;Assist X1 Sit to Supine: Supervision;Assist X1 Scooting: Supervision;Assist X1 Transfer Training Transfer Training: Yes Overall Level of Assistance: Stand-by assistance;Assist X1 Interventions: Safety awareness training Sit to Stand: Stand-by assistance;Assist X1 Stand to Sit: Stand-by assistance;Assist X1 Toilet Transfer: Stand-by assistance;Assist X1 Gait Training Gait Training: Yes Gait Overall Level of Assistance: Stand-by assistance;Contact-guard assistance;Assist X1 Interventions: Safety awareness training Base of Support: Widened Speed/Dina: Slow Distance (ft): 170 Feet Assistive Device: Other (comment);Gait belt PT Exercises Exercise Treatment: Seated exercises B Le x20 Other Specialty Interventions Other Treatments/Modalities: commode use and transfer Safety Devices Type of Devices: Call light within reach;Nurse notified;Left in bed Goals Short Term Goals Time Frame for Short Term Goals: 20 days Short Term Goal 1: Pt will be educated on her POC and HEP Short Term Goal 2: Pt will perform all transfers independently in order to return to PLOF Short Term Goal 3: Pt will ambulate >/=150 feet no AD independently in order to return to PLOF Short Term Goal 4: Pt will increase dynamic standing balance to Good in order to reduce fall risk Short Term Goal 5: Pt will tolerated 20 minutes of ambulation/exercises with minimal rest breaks in order to increase endurance Patient Goals Patient Goals : to get home Education Patient Education Education Given To: Patient Education Provided: Role of Therapy;Plan of Care;Home Exercise Program Education Method: Verbal Barriers to Learning: None Education Outcome: Verbalized understanding;Demonstrated understanding Therapy Time Individual Concurrent Group Co-treatment Time In 1112 Time Out 1145 Minutes 33 Génesis Hickman PTA Occupational Therapy Facility/Department: [facility] Daily Treatment Note NAME: Risa Warner : 1975 Date of Service: 06/13/2023 Discharge Recommendations: Continue to assess pending progress Patient Diagnosis(es): The primary encounter diagnosis was Recurrent syncope. A diagnosis of Pneumonia of both lower lobes due to infectious organism was also pertinent to this visit. Assessment Activity Tolerance: Patient tolerated treatment well;Patient limited by pain Discharge Recommendations: Continue to assess pending progress Plan Occupational Therapy Plan Times Per Day: Once a day Days Per Week: 7 Days Current Treatment Recommendations: Strengthening;ROM;Balance training;Functional mobility training;Endurance training;Safety education & training;Patient/Caregiver education & training;Equipment evaluation, education, & procurement;Self-Care / ADL;Home management training Restrictions Restrictions/Precautions Restrictions/Precautions: General Precautions;Fall Risk Subjective Subjective Subjective: Pt in the bathroom getting washed up upon arrival. Pt agreed to participate in therapy session. Pain: Pt reported back pain this date, however did not rate. Orientation Overall Orientation Status: Within Normal Limits Pain: pain in B feet 8/10 Objective Vitals ADL Grooming: Supervision;Modified independent UE Bathing: Supervision;Modified independent LE Bathing: Supervision;Modified independent UE Dressing: Supervision;Modified independent LE Dressing: Supervision;Modified independent Toileting: Supervision;Modified independent Additional Comments: Pt completed self care while standing at sink this date. Safety Devices Type of Devices: Call light within reach;Nurse notified;Left in chair Patient Education Education Given To: Patient Education Provided: Role of Therapy;Plan of Care Education Method: Verbal Barriers to Learning: None Education Outcome: Verbalized understanding Goals Short Term Goals Time Frame for Short Term Goals: 21 visits Short Term Goal 1: Patient will tolerate 15 mins of BUE ther ex/act while maintaining SpO2 WFL to increase overall strength/activity tolerance for functional tasks. Short Term Goal 2: Patient will demo standing tolerance 5-7 mins with support of walker and no LOB to increase safety/participation with ADL tasks. Short Term Goal 3: Pt will be educated on EC strategies and breathing techniques to decrease fatigue and improve participation in ADL's. Short Term Goal 4: To be educated on DME to maximize safety with ADL's upon d/c home. Patient Goals Patient goals : To get better so I can go home. Therapy Time Individual Concurrent Group Co-treatment Time In 1046 Time Out 1113 Minutes 27 AGNES Mathias Physical Therapy Facility/Department: [facility] Daily Treatment Note NAME: Risa Warner : 1975 Date of Service: 06/13/2023 Discharge Recommendations: Continue to assess pending progress Patient Diagnosis(es): The primary encounter diagnosis was Recurrent syncope. A diagnosis of Pneumonia of both lower lobes due to infectious organism was also pertinent to this visit. Assessment Assessment: Pt. able to ambulate with no AD, 532pyy3,30ftx1 with no nted OB and required one standing RB d/t fatigue. Seated exercises B LE x15. Cmmode use and transfer. Bed mobility:SBA/SUP. Transfers:SBA Activity Tolerance: Patient tolerated treatment well;Patient limited by pain Plan Physcial Therapy Plan General Plan: 2 times a day 7 days a week Specific Instructions for Next Treatment: 1x/daily on weekends and holidays Current Treatment Recommendations: Strengthening;Balance training;Gait training;Functional mobility training;Stair training;Home exercise program;Therapeutic activities;Safety education & training;Neuromuscular re-education;Transfer training;Patient/Caregiver education & training;Endurance training;Pain management Restrictions Restrictions/Precautions Restrictions/Precautions: General Precautions, Fall Risk Subjective Subjective Subjective: Pt. in bed upon arrival, agreeable to therapy at this time. Pain: pain in B feet 8/10 Orientation Overall Orientation Status: Within Normal Limits Objective Bed Mobility Training Bed Mobility Training: Yes Overall Level of Assistance: Stand-by assistance;Assist X1;Supervision Interventions: Safety awareness training;Verbal cues Rolling: Stand-by assistance;Assist X1;Supervision Supine to Sit: Supervision;Stand-by assistance;Assist X1 Scooting: Supervision;Stand-by assistance;Assist X1 Transfer Training Transfer Training: Yes Overall Level of Assistance: Contact-guard assistance;Stand-by assistance;Assist X1 Interventions: Safety awareness training Sit to Stand: Stand-by assistance;Assist X1 Stand to Sit: Stand-by assistance;Assist X1 Toilet Transfer: Stand-by assistance;Assist X1 Gait Training Gait Training: Yes Gait Overall Level of Assistance: Stand-by assistance;Contact-guard assistance;Assist X1 Interventions: Safety awareness training Base of Support: Widened Speed/Dina: Slow Distance (ft): 170 Feet Assistive Device: Other (comment);Gait belt PT Exercises Exercise Treatment: Seated exercises B Le x15 Other Specialty Interventions Other Treatments/Modalities: commode use and transfer Safety Devices Type of Devices: Call light within reach;Nurse notified;Left in chair Goals Short Term Goals Time Frame for Short Term Goals: 20 days Short Term Goal 1: Pt will be educated on her POC and HEP Short Term Goal 2: Pt will perform all transfers independently in order to return to PLOF Short Term Goal 3: Pt will ambulate >/=150 feet no AD independently in order to return to PLOF Short Term Goal 4: Pt will increase dynamic standing balance to Good in order to reduce fall risk Short Term Goal 5: Pt will tolerated 20 minutes of ambulation/exercises with minimal rest breaks in order to increase endurance Patient Goals Patient Goals : to get home Education Patient Education Education Given To: Patient Education Provided: Role of Therapy;Plan of Care;Home Exercise Program Education Method: Verbal Barriers to Learning: None Education Outcome: Verbalized understanding;Demonstrated understanding Therapy Time Individual Concurrent Group Co-treatment Time In 0736 Time Out 08 Minutes 27 Génesis Hickman PTA Comprehensive Nutrition Assessment Type and Reason for Visit: Initial Nutrition Recommendations/Plan: Encourage consistent carbs on regular diet Recommend o/p diabetes education when ready Malnutrition Assessment: Malnutrition Status: No malnutrition (06/13/23 1017) Context: Acute Illness Findings of the 6 clinical characteristics of malnutrition: Energy Intake: No significant decrease in energy intake Weight Loss: No significant weight loss Body Fat Loss: No significant body fat loss Muscle Mass Loss: No significant muscle mass loss Fluid Accumulation: Mild Extremities Nail Technician Strength: Not Performed Nutrition Assessment: Altered nutrition related labs r/t endocrine dysfunction, AEB glucose excursions on steroid with known diabetes. Improving A1C over time, down to 8.1. Asked provider to be on regular diet to choose for herself, which was granted. Weight consistently elevated/obese with mild fluctuations. Has had remote DM education and likely could benefit from refresher to further improve glycemia mcc. Nutrition Related Findings: obese, trace LLE edema. Wound Type: None Current Nutrition Intake & Therapies: Average Meal Intake: 76-100% Average Supplements Intake: None Ordered ADULT DIET; Regular Anthropometric Measures: Height: 5' 6 (167.6 cm) Austin Body Weight (IBW): 130 lbs (59 kg) Admission Body Weight: 203 lb (92.1 kg) Current Body Weight: 209 lb 3.2 oz (94.9 kg), 160.9 % IBW. Weight Source: Bed Scale Current BMI (kg/m2): 33.8 Usual Body Weight: 209 lb (94.8 kg) % Weight Change (Calculated): 0.1 Weight Adjustment For: No Adjustment BMI Categories: Obese Class 1 (BMI 30.0-34.9) Estimated Daily Nutrient Needs: Energy Requirements Based On: Kcal/kg Weight Used for Energy Requirements: Current Energy (kcal/day): 7518-0039 (15-18) Weight Used for Protein Requirements: Austin Protein (g/day): 71-83 (1.2-1.4) Method Used for Fluid Requirements: 1 ml/kcal Fluid (ml/day): 1800 Nutrition Diagnosis: Altered nutrition-related lab values related to endocrine dysfuntion as evidenced by lab values Lab Results Component Value Date NA 138 06/13/2023 K 4.3 06/13/2023 CL 103 06/13/2023 CO2 23 06/13/2023 BUN 28 (H) 06/13/2023 CREATININE 0.7 06/13/2023 GLUCOSE 199 (H) 06/13/2023 CALCIUM 9.7 06/13/2023 PROT 7.7 06/10/2023 LABALBU 4.7 06/10/2023 BILITOT 0.2 (L) 06/10/2023 ALKPHOS 71 06/10/2023 AST 33 (H) 06/10/2023 ALT 33 06/10/2023 LABGLOM >60 06/13/2023 GFRAA >60 10/23/2021 GLOB NOT REPORTED 02/09/2021 Hemoglobin A1C Date Value Ref Range Status 03/24/2023 8.1 % Final No results found for: [id number] Nutrition Interventions: Food and/or Nutrient Delivery: Continue Current Diet Nutrition Education/Counseling: Education declined Coordination of Nutrition Care: Continue to monitor while inpatient Plan of Care discussed with: patient Goals: Goals: Meet at least 75% of estimated needs Nutrition Monitoring and Evaluation: Behavioral-Environmental Outcomes: Beliefs and Attitudes Food/Nutrient Intake Outcomes: Food and Nutrient Intake Physical Signs/Symptoms Outcomes: Biochemical Data, Weight, Fluid Status or Edema Discharge Planning: No discharge needs at this time [address], LD Contact: [phone] Progress Note SUBJECTIVE: Patient seen for f/u of Acute pneumonia. She resting in bed no distress. Cough but nonproductive. No hypoxia. Tolerated diet well. ROS: Constitutional: negative for fevers, and negative for chills. Respiratory: positive for shortness of breath, positive for cough, and negative for wheezing Cardiovascular: negative for chest pain, and negative for palpitations Gastrointestinal: negative for abdominal pain, negative for nausea,negative for vomiting, negative for diarrhea, and negative for constipation All other systems were reviewed with the patient and are negative unless otherwise stated in HPI OBJECTIVE: Vitals: Vitals: 06/13/23 0703 BP: 132/73 Pulse: 89 Resp: 18 Temp: 97.7 F (36.5 C) SpO2: 95% Weight - Scale: 209 lb 3.2 oz (94.9 kg) Height: 5' 6 (167.6 cm) Weight Wt Readings from Last 3 Encounters: 06/13/23 209 lb 3.2 oz (94.9 kg) 05/27/23 209 lb 1.6 oz (94.8 kg) 05/16/23 201 lb (91.2 kg) Body mass index is 33.77 kg/m . 24HR INTAKE/OUTPUT: Intake/Output Summary (Last 24 hours) at 06/13/2023 0910 Last data filed at 06/13/2023 0833 Gross per 24 hour Intake 1440 ml Output -- Net 1440 ml - Exam: GEN: Awake, alert and oriented x3. EYES: EOMI, pupils equal NECK: Supple. No lymphadenopathy. No carotid bruit CVS: regular rate and rhythm, no audible murmur PULM: CTA, no wheezes, rales or rhonchi, no acute respiratory distress ABD: Bowels sounds normal. Abdomen is soft. No distention. no tenderness to palpation. EXT: no edema bilaterally . No calf tenderness. NEURO: Moves all extremities. Motor and sensory are grossly intact SKIN: No rashes. No skin lesions. - Diagnostic Data: Complete Blood Count: Recent Labs 06/11/2353406/12/2353406/13/23 0600 WBC 12.6* 16.4* 13.4* RBC 3.80* 3.54* 3.91* HGB 12.0 11.2* 12.2 HCT 37.6 34.5* 38.0 MCV 98.9 97.5 97.2 MCH 31.6 31.6 31.2 MCHC 31.9 32.5 32.1 RDW 14.0 13.7 13.6 PLT 297 367 226 MPV 9.4 10.6 9.5 Last 3 Blood Glucose: Recent Labs 06/10/23210606/11/2335 06/12/23 0535 06/13/23 0600 GLUCOSE 109* 153* 295* 199* Comprehensive Metabolic Profile: Recent Labs 06/10/23210606/11/2353406/12/23 0535 06/13/23 0600 NA 139 141 135 138 K 4.2 4.7 4.7 4.3 CL 98 105 99 103 CO2 31 26 24 23 BUN 15 13 23* 28* CREATININE 1.1* 1.0* 0.8 0.7 GLUCOSE 109* 153* 295* 199* CALCIUM 10.2 9.1 9.3 9.7 PROT 7.7 -- -- -- LABALBU 4.7 -- -- -- BILITOT 0.2* -- -- -- ALKPHOS 71 -- -- -- AST 33* -- -- -- ALT 33 -- -- -- Urinalysis: Lab Results Component Value Date/Time NITRU NEGATIVE 01/28/2021 11:00 AM COLORU YELLOW 01/28/2021 11:00 AM PHUR 6.0 01/28/2021 11:00 AM WBCUA 0 TO 2 01/28/2021 11:00 AM RBCUA 0 TO 2 01/28/2021 11:00 AM MUCUS NOT REPORTED 01/28/2021 11:00 AM TRICHOMONAS NOT REPORTED 01/28/2021 11:00 AM YEAST NOT REPORTED 01/28/2021 11:00 AM BACTERIA 2+ 01/28/2021 11:00 AM SPECGRAV >1.030 01/28/2021 11:00 AM LEUKOCYTESUR NEGATIVE 01/28/2021 11:00 AM UROBILINOGEN Normal 01/28/2021 11:00 AM BILIRUBINUR NEGATIVE 01/28/2021 11:00 AM BILIRUBINUR neg 03/08/2016 12:00 AM BLOODU neg 03/08/2016 12:00 AM GLUCOSEU 1+ 01/28/2021 11:00 AM KETUA NEGATIVE 01/28/2021 11:00 AM AMORPHOUS NOT REPORTED 01/28/2021 11:00 AM HgBA1c: Lab Results Component Value Date/Time LABA1C 8.1 03/24/2023 04:18 PM Lactic Acid: Lab Results Component Value Date/Time LACTA 1.4 12/20/2017 08:40 PM LACTA 1.8 06/22/2017 10:20 PM LACTA 2.5 05/18/2017 09:05 PM Troponin: No results for input(s): TROPONINI in the last 72 hours. CRP: No results for input(s): CRP in the last 72 hours. Radiology/Imaging: CT CHEST PULMONARY EMBOLISM W CONTRAST Final Result Mild nonspecific bibasilar interstitial infiltrates. Coronary artery disease. XR CHEST (2 VW) Final Result No acute process. CT CERVICAL SPINE WO CONTRAST Final Result 1. No acute traumatic abnormality involving the cervical spine. CT Head WO Contrast Final Result No acute intracranial abnormality. ASSESSMENT / PLAN: MEDICAL DECISION MAKING: Primary Problem(s): Acute pneumonia Differential diagnoses: Viral pneumonia Condition is an undiagnosed new problem with uncertain prognosis Condition is improving Treatment plan: Blood culture-#1 positive cocci Blood culture #2-negative Imaging: no further imaging studies ordered today Medications: Continue Rocephin, Zithromax Continue Solu-Medrol Continue nebs Continue Mucinex, Flonase, Singulair Medication Monitoring / High Risk Medications: none Syncope and collapse Condition is resolved Treatment plan: Continue current treatment Imaging: no further imaging studies ordered today Medications: IV lock Type 2 diabetes Condition is a chronic stable condition Treatment plan: monitor labs Imaging: no further imaging studies ordered today Medications: Insulin sliding scale Hypoglycemia protocol Continue Jardiance, Humulin R Nutrition status: obesity, non-morbid Tool Die Maker consult initiated Hospital Prophylaxis: DVT: Lovenox Stress Ulcer: H2 Tana Disposition: Shared decision making: All test results, treatment options and disposition options were discussed with the patient today Social determinants of health that may impact management: none Code status: Full Code Disposition: Discharge plan is pending [facility] Advanced Care Planning documentation: [x] I have confirmed that the patient's Advance Care Plan is present, Code Status is documented, or surrogate decision maker is listed in the patient's medical record [If yes , STOP HERE] [] The patient's Advance Care Plan is NOT present because: [] I confirmed today that the patient does not wish or was not able to name a surrogate decision maker or provide and advance care plan. [] Hospice care is currently being provided or has been provided within the calendar year. [] I did NOT confirm today the presence of an Advance Care Plan or surrogate decision maker documented within the patient's medical record. [DOES NOT SATISFY [facility] PERFORMANCE] Shelley Champagne APRN - [place] , JOSSE, PAWN SHOP KEEPER-C Hospitalist Medicine 06/13/2023, 9:10 AM Associated attestation - Emanuel Danielle MD - 06/13/2023 5:31 PM EDT Images from the original note were not included. [address] , [place], [place], [address] Attestation Patient: Risa Warner Date of Admission: 06/10/2023 8:42 PM Hospital Day # 3 Date of Evaluation: 06/13/2023 I personally evaluated and examined the patient [id number] in conjunction with the PA/PAWN SHOP KEEPER and agree with the management and dispostition of the patient. Please see the PA/PAWN SHOP KEEPER's note for full details. My lezama findings are: SUBJECTIVE: Patient seen for follow up of Acute pneumonia. Patient seen and examined at the bed side , no new acute events overnight and no new complains this morning. She continues to have a cough that is nonproductive at times. Notes from nursing staff and Consults had been reviewed, and the overnight progress had been checked with the nursing staff as well. OBJECTIVE: Vitals: Temp: 97.5 F (36.4 C) BP: 126/66 Respirations: 18 Pulse: 89 SpO2: 95 % Weight Wt Readings from Last 3 Encounters: 06/13/23 209 lb 3.2 oz (94.9 kg) 05/27/23 209 lb 1.6 oz (94.8 kg) 05/16/23 201 lb (91.2 kg) Body mass index is 33.77 kg/m . 24HR INTAKE/OUTPUT: Intake/Output Summary (Last 24 hours) at 06/13/2023 1731 Last data filed at 06/13/2023 0833 Gross per 24 hour Intake 1040 ml Output -- Net 1040 ml - Exam: GEN: Awake, alert and oriented x3. EYES: EOMI, pupils equal NECK: Supple. No lymphadenopathy. No carotid bruit CVS: regular rate and rhythm, no audible murmur PULM: diminished with inspiratory and expiratory wheezing bilaterally, no acute respiratory distress ABD: Bowels sounds normal. Abdomen is soft. No distention. no tenderness to palpation. EXT: no edema bilaterally . No calf tenderness. NEURO: Moves all extremities. Motor and sensory are grossly intact SKIN: No rashes. No skin lesions. DATA: Complete Blood Count: Recent Labs 06/11/23 0535 06/12/23 0535 06/13/23 0600 WBC 12.6* 16.4* 13.4* RBC 3.80* 3.54* 3.91* HGB 12.0 11.2* 12.2 HCT 37.6 34.5* 38.0 MCV 98.9 97.5 97.2 RDW 14.0 13.7 13.6 PLT 297 367 226 Recent Labs 06/11/23 0535 06/12/23 0535 06/13/23 0600 NEUTROABS 9.30* 14.32* 10.70* LYMPHOPCT 20* 10* 14* LYMPHSABS 2.45 1.59 1.87 MONOPCT 2* 2* 5 EOSRELPCT 3 0* 0* BASOPCT 1 0 0 IMMGRAN 1* 1* 2* CMP: Lab Results Component Value Date GLUCOSE 199 (H) 06/13/2023 BUN 28 (H) 06/13/2023 CREATININE 0.7 06/13/2023 NA 138 06/13/2023 K 4.3 06/13/2023 CALCIUM 9.7 06/13/2023 CL 103 06/13/2023 CO2 23 06/13/2023 PROT 7.7 06/10/2023 LABALBU 4.7 06/10/2023 BILITOT 0.2 (L) 06/10/2023 ALKPHOS 71 06/10/2023 ALT 33 06/10/2023 AST 33 (H) 06/10/2023 UA: Lab Results Component Value Date COLORU YELLOW 01/28/2021 SPECGRAV >1.030 (H) 01/28/2021 WBCUA 0 TO 2 01/28/2021 RBCUA 0 TO 2 01/28/2021 EPITHUA 2 TO 5 01/28/2021 LEUKOCYTESUR NEGATIVE 01/28/2021 GLUCOSEU 1+ (A) 01/28/2021 BLOODU neg 03/08/2016 KETUA NEGATIVE 01/28/2021 PROTEINU NEGATIVE 01/28/2021 HGBUR NEGATIVE 01/28/2021 CASTUA NOT REPORTED 01/28/2021 CRYSTUA NOT REPORTED 01/28/2021 BACTERIA 2+ (A) 01/28/2021 YEAST NOT REPORTED 01/28/2021 Lactic Acid: Lab Results Component Value Date/Time LACTA 1.4 12/20/2017 08:40 PM LACTA 1.8 06/22/2017 10:20 PM LACTA 2.5 05/18/2017 09:05 PM High Sensitivity Troponin: Recent Labs 06/10/23210606/10/23 2330 TROPHS 27* 26* Radiology/Imaging: CT CHEST PULMONARY EMBOLISM W CONTRAST Final Result Mild nonspecific bibasilar interstitial infiltrates. Coronary artery disease. XR CHEST (2 VW) Final Result No acute process. CT CERVICAL SPINE WO CONTRAST Final Result 1. No acute traumatic abnormality involving the cervical spine. CT Head WO Contrast Final Result No acute intracranial abnormality. ASSESSMENT: Principal Problem: Acute pneumonia Active Problems: Controlled type 2 diabetes mellitus with diabetic polyneuropathy, with long-term current use of insulin (HCC) Diabetic neuropathy (HCC) Fibromyalgia Depression Generalized abdominal pain Essential hypertension Dyslipidemia Fatty liver Syncope and collapse Resolved Problems: * No resolved hospital problems. * PLAN: I agree with the plan as outlined in the PAWN SHOP KEEPER/PA's note Disposition: Discharge plan is pending Please note that this chart was generated using voice recognition [employer] dictation software. Although every effort was made to ensure the accuracy of this automated rn dermatology, some errors in rn dermatology may have occurred. Emanuel Danielle MD 06/13/2023 5:31 PM RESPIRATORY ASSESSMENT PROTOCOL Patient Name: Risa Warner Room#: 0315/0315-01 : 1975 Admitting diagnosis: Pneumonia of both lower lobes due to infectious organism [J18.9] Recurrent syncope [R55] Acute pneumonia [J18.9] Medical History: Past Medical History: Diagnosis Date Allergic rhinitis Asthma Chronic back pain Depression DM (diabetes mellitus), type 2, uncontrolled with complications Fibromyalgia Gastroparesis H/O echocardiogram 12/05/2015 Relatively normal Headache(784.0) HIGH CHOLESTEROL History of Holter monitoring 12/09/2015 Sinus rhythm with predominant sinus tachycardia,average HR >100 bpm 58% of the study. Rare PAC's History of stress test 11/19/2015 Largely normal. EF 71%. Low risk for significant CAD. Hx of cardiac cath 12/31/2015 LMCA: normal 0% stenosis. LAD: Normal 0% stenosis. LCx: Normal 0% stenosis. RCA: Normal 0% stenosis. Hypertension Hypothyroidism Kidney stones Neuropathy Obesity (BMI 30.0-34.9) LAYNE (obstructive sleep apnea) Osteoarthritis Restless leg syndrome RSD (reflex sympathetic dystrophy) RSD (reflex sympathetic dystrophy) Smoker PATIENT ASSESSMENT LABORATORY DATA Hematology: Lab Results Component Value Date/Time WBC 13.4 06/13/2023 06:00 AM RBC 3.91 06/13/2023 06:00 AM HGB 12.2 06/13/2023 06:00 AM HCT 38.0 06/13/2023 06:00 AM PLT 226 06/13/2023 06:00 AM Chemistry: Lab Results Component Value Date/Time PHART 7.293 07/02/2013 04:20 PM AXF6DUE 36.8 07/02/2013 04:20 PM PO2ART 70.6 07/02/2013 04:20 PM [id number] 92.6 07/02/2013 04:20 PM DXL1NRR 17.4 07/02/2013 04:20 PM PBEA NOT REPORTED 07/02/2013 04:20 PM NBEA 8.3 07/02/2013 04:20 PM VITALS Pulse: 89 Respirations: 18 BP: 132/73 SpO2: 95 % O2 Device: None (Room air) Temp: 97.7 F (36.5 C) SKIN COLOR [x] Normal [] Pale [] Dusky [] Cyanotic RESPIRATORY PATTERN [x] Normal [] Dyspnea [] Demetrio-Coyle [] Kussmaul [] Biots AMBULATORY [x] Yes [] No [] With Assistance Patient Acuity 0 1 2 3 4 Score Level of Consciousness (LOC) [x] Alert & Oriented or Pt normal LOC [] Confused;follows directions [] Confused & uncooper-ative [] Obtunded [] Comatose 0 Respiratory Rate (RR) [x] Reg. rate & pattern. 12 - 20 bpm [] Increased RR. Greater than 20 bpm [] SOB w/ exertion or RR greater than 24 bpm [] Access- ory muscle use at rest. Abn. resp. [] SOB at rest. 0 Bilateral Breath Sounds (BBS) [] Clear [x] Diminish-ed bases [] Diminish-ed t/o, or rales [] Sporadic, scattered wheezes or rhonchi [] Persistentwheezes and, or absent BBS 1 Cough [x] Strong, effective, & non-prod. [] Effective & prod. Less than 25 ml (2 TBSP) over past 24 hrs [] Ineffective & non-prod to less than 25 ML over past 24 hrs [] Ineffective and, or greater than 25 ml sputum prod. past 24 hrs. [] Nonspon- taneous; Requires suctioning 0 Pulmonary History (PULM HX) [] No smoking and no chronic pulmonary history [] Former smoker. Quit over 12 mos. ago [] Current smoker or quit w/ in 12 mos [] Pulm. History and, or 20 pk/yr smoking hx [x] Admitted w/ acute pulm. dx and, or has been admitted w/ pulm. dx 2 or more times over past 12 mos 4 Surgical History this Admit (SURG HX) [x] No surgery [] General surgery [] Lower abdominal [] Thoracic or upper abdominal [] Thoracic w/ pulm. disease 0 Chest X-Ray (CXR)/CT Scan [] Clear or not applicable [] Not available [] Atelectasis or pleural effusions [x] Localized infiltrate or pulm. edema [] Con-solidated Infiltrates, bilateral, or in more than 1 lobe 3 TOTAL ACUITY: 8 CARE PLAN If Acuity Level is 2, 3, or 4 in any of the following: [] BILATERAL BREATH SOUNDS (BBS) [x] PULMONARY HISTORY (PULM HX) [] Respiratory Rate (RR) Goal: Improve respiratory functions in patients with airway disease and decrease WOB [x] AEROSOL PROTOCOL Total Acuity: 14-28 [] Secondary Assessment in 24 hrs Total Acuity: 9-13 [] Secondary Assessment in 24 hrs Total Acuity: 4-8 [x] Secondary Assessment in 24 hrs Total Acuity: 0-3 [] Secondary Assessment in 48 hrs HHN AEROSOL THERAPY with [physician-ordered bronchodilator(s)] q 4 & Albuterol PRN q2 hrs. Breath-Actuated Neb if BBS Acuity = 4, and pt. can use MP. Notify physician if condition deteriorates. HHN AEROSOL THERAPY with [physician-ordered bronchodilator(s)] QID and Albuterol PRN q4 hrs. Breath-Actuated Neb if BBS Acuity = 4, and pt. can use MP. Notify physician if condition deteriorates. MDI THERAPY with 2 actuations of [physician-ordered bronchodilator(s)] via spacer TID Albuterol and PRN q4 hrs. If unable to utilize MDI: HHN [physician-ordered bronchodilator(s)] TID and Albuterol PRN q4 hrs. Notify physician if condition deteriorates. MDI THERAPY with [physician-ordered bronchodilator(s)] via spacer TID PRN. If unable to utilize MDI: HHN [physician-ordered bronchodilator(s)] TID PRN. Notify physician if condition deteriorates. If Acuity Level is 2, 3, or 4 in any of the following: [] COUGH [] SURGICAL HISTORY (SURG HX) [x] CHEST XRAY (CXR) Goal: Improvement in sputum mobilization in patients with ineffective airway clearance. Reverse atelectasis. [] Bronchopulmonary Hygiene Protocol Total Acuity: 14-28 [] Secondary Assessment in 24 hrs Total Acuity: 9-13 [] Secondary Assessment in 24 hrs Total Acuity: 4-8 [x] Secondary Assessment in 24 hrs Total Acuity: 0-3 [] Secondary Assessment in 48 hrs METANEB QID with [physician-ordered bronchodilator(s)] if CXR Acuity = 4; otherwise: PD&P, Oscillatory Therapy, or Vest QID & PRN AND PEP QID & PRN NT Sxn PRN for ineffective cough METANEB QID with [physician-ordered bronchodilator(s)] if CXR Acuity = 4; otherwise: PD&P, Oscillatory Therapy or Vest QID & PRN AND PEP QID & PRN NT Sxn PRN for ineffective cough PD&P, Oscillatory Therapy, or Vest TID & PRN AND PEP TID & PRN Instruct patient to self-perform IS q1hr WA If Acuity Level is 2 or above in the following: [x] PULMONARY HISTORY (PULM HX) Goal: Assist patient in quitting smoking to slow or stop the progression of lung disease. [] Smoking Cessation Protocol SMOKING CESSATION EDUCATION provided according to policy RT_201: (alfredito with an X) ____Yes ____ No ____ NA Smoking Cessation Booklet given: ____Yes ____No ____Patient Refused Notified Dr. Danielle of positive blood cultures. No new orders. Pt sitting up in the bed watching TV when scenario writer entered the room. Pt is A&O x4. Vitals and assessment as charted. Pt rated her pain a 6 out of 10 in her head. Tramadol 50mg PO given. Pt also requested cough medicine. Pt given Tessalon 100mg PO. Pt denies any further needs at this time. Call light within reach. Occupational Therapy Facility/Department: [facility] Daily Treatment Note NAME: Risa Warner : 1975 Date of Service: 06/12/2023 Discharge Recommendations: Continue to assess pending progress Patient Diagnosis(es): The primary encounter diagnosis was Recurrent syncope. A diagnosis of Pneumonia of both lower lobes due to infectious organism was also pertinent to this visit. Assessment Activity Tolerance: Patient tolerated treatment well;Patient limited by pain Discharge Recommendations: Continue to assess pending progress Plan Occupational Therapy Plan Times Per Day: Once a day Days Per Week: 7 Days Current Treatment Recommendations: Strengthening;ROM;Balance training;Functional mobility training;Endurance training;Safety education & training;Patient/Caregiver education & training;Equipment evaluation, education, & procurement;Self-Care / ADL;Home management training Restrictions Restrictions/Precautions Restrictions/Precautions: General Precautions;Fall Risk Subjective Subjective Subjective: Pt sitting up in bed upon arrival. Pt agreed to participate in therapy session. Pain: Pt reported 8/10 B foot pain this date. Pain: 8/10 bilateral feet Objective Vitals ADL Additional Comments: SUP/SBA to complete bed mob and func transfers. CGA/Min A to complete func mob with no AD. OT Exercises Exercise Treatment: Pt tolerated BUE ther ex x 5 planes x 15 reps x 1 set to increase UE strength and endurance in order to ease completion of ADL tasks. Pt required occ RBs secondary to fatigue. Safety Devices Type of Devices: Left in bed;Call light within reach;Nurse notified Patient Education Education Given To: Patient Education Provided: Role of Therapy;Plan of Care Education Method: Verbal Barriers to Learning: None Education Outcome: Verbalized understanding Goals Short Term Goals Time Frame for Short Term Goals: 21 visits Short Term Goal 1: Patient will tolerate 15 mins of BUE ther ex/act while maintaining SpO2 WFL to increase overall strength/activity tolerance for functional tasks. Short Term Goal 2: Patient will demo standing tolerance 5-7 mins with support of walker and no LOB to increase safety/participation with ADL tasks. Short Term Goal 3: Pt will be educated on EC strategies and breathing techniques to decrease fatigue and improve participation in ADL's. Short Term Goal 4: To be educated on DME to maximize safety with ADL's upon d/c home. Patient Goals Patient goals : To get better so I can go home. Therapy Time Individual Concurrent Group Co-treatment Time In 0850 Time Out 0905 Minutes 15 REBEL Mathias/Dee Pt awake eating breakfast as side of bed upon entering room. Pt stated pain was 7-8 in back and neck. PRN medication given. VS and assessment as charted. Pt independent in room. Call light in reach continue to monitor. Images from the original note were not included. [address], [id number] Progress Note Date: 06/12/2023 Patient name: Risa Warner Date of admission: 06/10/2023 8:42 PM Date of : 1975 SUBJECTIVE/Last 24 hours update: Patient seen and examined at the bed side , no new acute events overnight except for ongoing cough that is productive and severe causing worsening/acute on chronic back pain. The medication adjustment was noted not to be enough for the patient. She also states that she is feeling hungry and that she would like a regular diet / no sodium restriction and typically she will choose/control the carbs herself, RBA discussed, patient and I were in agreement. I made further changes to her pain medications as well and changed/provided an alt. Cough syrup. W/ Codeine. Notes from nursing staff and Consults had been reviewed, and the overnight progress had been checked with the nursing staff as well. She is feeling about the same as prior. Her glucose remains elevated, meds were adjusted although this is anticipated given steroids. REVIEW OF SYSTEMS: CONSTITUTIONAL: no fevers, no headcahes EYES: negative for blury vision HEENT: No headaches, No nasal congestion, no difficulty swallowing RESPIRATORY: positive for dyspnea, no wheezing, no Cough CARDIOVASCULAR: negative for chest pain, no palpitations GASTROINTESTINAL: no nausea, no vomiting, no change in bowel habits, no abdominal pain GENITOURINARY: negative for dysuria, no hematuria MUSCULOSKELETAL: no joint pains, no muscle aches, no swelling of joints or extremities NEUROLOGICAL: No Weakness or numbness PAST MEDICAL HISTORY: has a past medical history of Allergic rhinitis, Asthma, Chronic back pain, Depression, DM (diabetes mellitus), type 2, uncontrolled with complications, Fibromyalgia, Gastroparesis, H/O echocardiogram, Headache(784.0), HIGH CHOLESTEROL, History of Holter monitoring, History of stress test, Hx of cardiac cath, Hypertension, Hypothyroidism, Kidney stones, Neuropathy, Obesity (BMI 30.0-34.9), LAYNE (obstructive sleep apnea), Osteoarthritis, Restless leg syndrome, RSD (reflex sympathetic dystrophy), RSD (reflex sympathetic dystrophy), and Smoker. PAST SURGICAL HISTORY: has a past surgical history that includes shoulder surgery (Right, 1999); Kidney surgery (2007); Lithotripsy (2007); other surgical history (2005); other surgical history; Lithotripsy (Right, 09/05/2013); Upper gastrointestinal endoscopy (07/10/2015); Cardiac catheterization (Left, 12/31/2015); Cystoscopy (Left); Hysterectomy; Vaginal prolapse repair; bladder suspension; Partial hysterectomy; other surgical history (09/2022); Colonoscopy (N/A, 12/08/2022); and Colonoscopy (12/08/2022). SOCIAL HISTORY: reports that she has been smoking cigarettes. She has a 30.00 pack-year smoking history. She has never used smokeless tobacco. She reports that she does not drink alcohol and does not use drugs. TOBACCO: reports that she has been smoking cigarettes. She has a 30.00 pack-year smoking history. She has never used smokeless tobacco. ETOH: reports no history of alcohol use. FAMILY HISTORY: family history includes Allergy (Severe) in her father; Asthma in her father; COPD in her father; Cancer in her father; Cataracts in her father; Depression in her father and mother; Diabetes in her father; Glaucoma in her father; Heart Disease in her father; High Blood Pressure in her father; High Cholesterol in her father; Other in her brother, brother, father, and mother. Problem Relation Age of Onset Other Father chronic bronchitis/ gastric ulcers/gerd High Cholesterol Father Diabetes Father Glaucoma Father Cataracts Father COPD Father Heart Disease Father vascular disease Cancer Father skin Allergy (Severe) Father Asthma Father Depression Father High Blood Pressure Father Depression Mother Other Mother restless legs Other Brother stomach issues lactose intolerance Other Brother stomach issues HOME MEDICATIONS: Prior to Admission medications Medication Sig Start Date End Date Taking? Authorizing Provider guaiFENesin-codeine (GUAIFENESIN AC) 100-10 MG/5ML liquid take 10 milliliters by mouth every 4 hours if needed for cough fo... (REFER TO PRESCRIPTION NOTES). 05/31/23 Historical Provider, acetaminophen (TYLENOL) 500 MG tablet Take 1 tablet by mouth every 6 hours as needed for Pain Historical Provider, atorvastatin (LIPITOR) 80 MG tablet Take 1 tablet by mouth nightly at bedtime. 05/16/23 Nathan Ardon MD furosemide (LASIX) 20 MG tablet Take 1 tablet by mouth daily 05/16/23 05/15/24 Nathan Ardon MD lisinopril (PRINIVIL;ZESTRIL) 10 MG tablet Take 1 tablet by mouth daily 05/16/23 05/15/24 Nathan Ardon MD metoprolol succinate (TOPROL XL) 25 MG extended release tablet Take 1 tablet by mouth in the morning and at bedtime 05/16/23 Nathan Ardon MD albuterol sulfate HFA (PROVENTIL;VENTOLIN;PROAIR) 108 (90 Base) MCG/ACT inhaler inhale 2 puffs by mouth and INTO THE LUNGS four times a day if needed for wheezing 03/25/23 JOSSE King CNP zoster recombinant adjuvanted vaccine (SHINGRIX) 50 MCG/0.5ML SUSR injection Inject 0.5 mLs into the muscle See Admin Instructions 1 dose now and repeat in 2-6 months 03/24/23 09/20/23 JOSSE King CNP CPAP Machine MISC by Does not apply route Historical Provider, fenofibrate (TRICOR) 54 MG tablet take 1 tablet by mouth once daily 03/14/23 Lucy Rocha PA-C traMADol (ULTRAM) 50 MG tablet take 2 tablets by mouth twice a day if needed 09/20/22 Historical Provider, levocetirizine (XYZAL) 5 MG tablet take 1 tablet by mouth every evening 09/23/22 JOSSE King CNP montelukast (SINGULAIR) 10 MG tablet take 1 tablet by mouth at bedtime 09/20/22 JOSSE King CNP empagliflozin (JARDIANCE) 10 MG tablet Take 1 tablet by mouth daily Historical Provider, insulin regular human (HUMULIN R U-500) 500 UNIT/ML concentrated injection vial Inject into the skin 2 times daily (with meals) 120 units twice daily Historical Provider, fluticasone (FLONASE) 50 MCG/ACT nasal spray 2 sprays by Each Nostril route daily 06/09/22 JOSSE King CNP betamethasone dipropionate (DIPROLENE) 0.05 % ointment Apply topically daily. Patient not taking: Reported on 05/27/2023 03/24/22 JOSSE King CNP baclofen (LIORESAL) 10 MG tablet 2 times daily 06/18/21 Historical Provider, diclofenac (VOLTAREN) 75 MG EC tablet take 1 tablet by mouth twice a day with food 06/18/21 Historical Provider, Continuous Blood Gluc Sensor (FREESTYLE KENA 14 DAY SENSOR) MISC 01/28/21 Historical Provider, DULoxetine (CYMBALTA) 60 MG extended release capsule Take 1 capsule by mouth nightly 01/29/21 Historical Provider, HUMALOG KWIKPEN 200 UNIT/ML SOPN pen INJECT 15 UNITS INTO THE SKIN 3 TIMES DAILY WITH MEALS Patient taking differently: Inject 60 Units into the skin Daily 60 units daily and Patient on sliding scale 03/10/20 JOSSE King CNP gabapentin (NEURONTIN) 600 MG tablet Take 1 tablet by mouth 3 times daily. 02/21/19 Corey Cleveland MD Insulin Pen Needle 30G X 8 MM MISC 1 each by Does not apply route 5 times daily 02/28/19 JOSSE King CNP aspirin 81 MG tablet Take 1 tablet by mouth daily Historical Provider, rOPINIRole (REQUIP) 4 MG tablet TAKE 1 TABLET DAILY Patient taking differently: nightly 11/03/15 Brooklyn Burns MD ALLERGIES: Pcn [penicillins] OBJECTIVE: Vitals: 06/11/23201006/11/23202906/12/2345506/12/23 05 BP: (!) 106/46 Pulse: 99 (!) 112 (!) 102 Resp: 18 18 20 Temp: 98.3 F (36.8 C) TempSrc: Temporal SpO2: 94% 94% 94% Weight: 204 lb 9.6 oz (92.8 kg) Height: Intake/Output Summary (Last 24 hours) at 06/12/2023 0808 Last data filed at 06/12/2023 0456 Gross per 24 hour Intake 4313 ml Output -- Net 4313 ml PHYSICAL EXAM: General Appearance Alert , awake , not in acute distress HEENT - Head is normocephalic, atraumatic. Lungs - Bilateral equal air entry are diminished with wheezes, no rales or rhonchi, aeration good/improving since yesterday. Cardiovascular - Heart sounds are normal. Regular rhythm, normal rate without murmur, gallop or rub. Abdomen - Soft, nontender, nondistended, no masses or organomegaly Neurologic - There are no new focal motor or sensory deficits Skin - No bruising or bleeding on exposed skin area Extremities - No cyanosis, clubbing or edema DIAGNOSTICS: Laboratory Testing: See [employer] EMR for lab data Recent Results (from the past 24 hour(s)) Glucose, Whole Blood Collection Time: 06/11/23 10:58 AM Result Value Ref Range POC Glucose 336 (H) 74 - 100 mg/dL Glucose, Whole Blood Collection Time: 06/11/23 2:33 PM Result Value Ref Range POC Glucose 473 (H) 74 - 100 mg/dL Glucose, Whole Blood Collection Time: 06/11/23 7:03 PM Result Value Ref Range POC Glucose 407 (H) 74 - 100 mg/dL Basic Metabolic Panel w/ Reflex to MG Collection Time: 06/12/23 5:35 AM Result Value Ref Range Sodium 135 135 - 144 mmol/L Potassium 4.7 3.7 - 5.3 mmol/L Chloride 99 98 - 107 mmol/L CO2 24 20 - 31 mmol/L Anion Gap 12 mmol/L Glucose 295 (H) 70 - 99 mg/dL BUN 23 (H) 6 - 20 mg/dL Creatinine 0.8 0.5 - 0.9 mg/dL Est, Glom Filt Rate >60 >60 mL/min/1.73m2 Bun/Cre Ratio 29 (H) 9 - 20 Calcium 9.3 8.6 - 10.4 mg/dL CBC auto differential Collection Time: 06/12/23 5:35 AM Result Value Ref Range WBC 16.4 (H) 3.5 - 11.3 k/uL RBC 3.54 (L) 3.95 - 5.11 m/uL Hemoglobin 11.2 (L) 11.9 - 15.1 g/dL Hematocrit 34.5 (L) 36.3 - 47.1 % MCV 97.5 82.6 - 102.9 fL MCH 31.6 25.2 - 33.5 pg MCHC 32.5 28.4 - 34.8 g/dL RDW 13.7 11.8 - 14.4 % Platelets 367 138 - 453 k/uL MPV 10.6 8.1 - 13.5 fL NRBC Automated 0.0 0.0 per 100 WBC Neutrophils % 87 (H) 36 - 65 % Lymphocytes % 10 (L) 24 - 43 % Monocytes % 2 (L) 3 - 12 % Eosinophils % 0 (L) 1 - 4 % Basophils % 0 0 - 2 % Immature Granulocytes 1 (H) 0 % Neutrophils Absolute 14.32 (H) 1.50 - 8.10 k/uL Lymphocytes Absolute 1.59 1.10 - 3.70 k/uL Monocytes Absolute 0.30 0.10 - 1.20 k/uL Eosinophils Absolute <0.03 0.00 - 0.44 k/uL Basophils Absolute 0.04 0.00 - 0.20 k/uL Absolute Immature Granulocyte 0.18 0.00 - 0.30 k/uL Glucose, Whole Blood Collection Time: 06/12/23 6:49 AM Result Value Ref Range POC Glucose 283 (H) 74 - 100 mg/dL Current Facility-Administered Medications Medication Dose Route Frequency Provider Last Rate Last Admin guaiFENesin-codeine (GUAIFENESIN AC) 100-10 MG/5ML liquid 5 mL 5 mL Oral Q4H PRN Emanuel Danielle MD traMADol (ULTRAM) tablet 50 mg 50 mg Oral Q4H PRN Emanuel Danielle MD aspirin EC tablet 81 mg 81 mg Oral Daily Emanuel Danielle MD 81 mg at 06/11/23 09 atorvastatin (LIPITOR) tablet 80 mg 80 mg Oral Nightly Emanuel Danielle MD 80 mg at 06/11/232026 ibuprofen (ADVIL;MOTRIN) tablet 400 mg 400 mg Oral TID WC Emanuel Danielle MD 400 mg at 06/11/231653 DULoxetine (CYMBALTA) extended release capsule 60 mg 60 mg Oral Nightly Emanuel Danielle MD 60 mg at 06/11/232026 empagliflozin (JARDIANCE) tablet 10 mg 10 mg Oral Daily Emanuel Danielle MD 10 mg at 06/11/23905 furosemide (LASIX) tablet 20 mg 20 mg Oral Daily Emanuel Danielle MD 20 mg at 06/11/23905 fluticasone (FLONASE) 50 MCG/ACT nasal spray 2 spray 2 spray Each Nostril Daily Emanuel Danielle MD 2 spray at 06/11/23905 lisinopril (PRINIVIL;ZESTRIL) tablet 10 mg 10 mg Oral Daily Emanuel Danielle MD metoprolol succinate (TOPROL XL) extended release tablet 25 mg 25 mg Oral BID Emanuel Danielle MD 25 mg at 06/11/232026 montelukast (SINGULAIR) tablet 10 mg 10 mg Oral Nightly Emanuel Danielle MD 10 mg at 06/11/232026 rOPINIRole (REQUIP) tablet 4 mg 4 mg Oral Nightly Emanuel Danielle MD 4 mg at 06/11/232026 glucose chewable tablet 16 g 4 tablet Oral PRN Emanuel Danielle MD dextrose bolus 10% 125 mL 125 mL IntraVENous PRN Emanuel Danielle MD Or dextrose bolus 10% 250 mL 250 mL IntraVENous PRN Emanuel Danielle MD glucagon (rDNA) injection 1 mg 1 mg SubCUTAneous PRN Emanuel Danielle MD dextrose 10 % infusion IntraVENous Continuous PRN Emanuel Danielle MD sodium chloride flush 0.9 % injection 5-40 mL 5-40 mL IntraVENous 2 times per day Emanuel Danielle MD 10 mL at 06/11/232024 sodium chloride flush 0.9 % injection 5-40 mL 5-40 mL IntraVENous PRN Emanuel Danielle MD 0.9 % sodium chloride infusion IntraVENous PRN Emanuel Danielle MD famotidine (PEPCID) tablet 20 mg 20 mg Oral BID Emanuel Danielle MD 20 mg at 06/11/232027 enoxaparin (LOVENOX) injection 40 mg 40 mg SubCUTAneous Daily Emanuel Danielle MD 40 mg at 09/16/23 0907 ondansetron (ZOFRAN-ODT) disintegrating tablet 4 mg 4 mg Oral Q8H PRN Emanuel Danielle MD Or ondansetron (ZOFRAN) injection 4 mg 4 mg IntraVENous Q6H PRN Emanuel Danielle MD polyethylene glycol (GLYCOLAX) packet 17 g 17 g Oral Daily PRN Emanuel Danielle MD acetaminophen (TYLENOL) tablet 650 mg 650 mg Oral Q6H PRN Emanuel Danielle MD Or acetaminophen (TYLENOL) suppository 650 mg 650 mg Rectal Q6H PRN Emanuel Danielle MD [Held by provider] guaiFENesin-dextromethorphan (ROBITUSSIN DM) 100-10 MG/5ML syrup 5 mL 5 mL Oral Q4H PRN Emanuel Danielle MD 5 mL at 06/11/23 1655 guaiFENesin (MUCINEX) extended release tablet 600 mg 600 mg Oral BID Emanuel Danielle MD 600 mg at 06/11/232026 benzonatate (TESSALON) capsule 100 mg 100 mg Oral TID PRN Emanuel Danielle MD 100 mg at 06/11/23 1503 cefTRIAXone (ROCEPHIN) 1,000 mg in sodium chloride 0.9 % 50 mL IVPB (mini-bag) 1,000 mg IntraVENous Q24H Emanuel Danielle MD Stopped at 06/12/23 0038 And azithromycin (ZITHROMAX) tablet 500 mg 500 mg Oral Q24H Emanuel Danielle MD 500 mg at 06/12/23 0007 gabapentin (NEURONTIN) capsule 600 mg 600 mg Oral TID Emanuel Danielle MD 600 mg at 06/11/232026 fenofibrate (TRIGLIDE) tablet 160 mg 160 mg Oral Daily Emanuel Danielle MD 160 mg at 06/11/23 0235 cetirizine (ZYRTEC) tablet 10 mg 10 mg Oral Daily Emanuel Danielle MD 10 mg at 06/11/23 0234 ipratropium 0.5 mg-albuterol 2.5 mg (DUONEB) nebulizer solution 1 Dose 1 Dose Inhalation 4x daily Emanuel Danielle MD 1 Dose at 06/12/23 0523 albuterol (PROVENTIL) (2.5 MG/3ML) 0.083% nebulizer solution 2.5 mg 2.5 mg Nebulization Q4H PRN Emanuel Danielle MD methylPREDNISolone sodium succ (SOLU-MEDROL) injection 40 mg 40 mg IntraVENous Q12H Emanuel Danielle MD 40 mg at 06/11/232023 baclofen (LIORESAL) tablet 10 mg 10 mg Oral TID PRN Emanuel Danielle MD 10 mg at 06/11/232026 insulin lispro (HUMALOG) injection vial 0-16 Units 0-16 Units SubCUTAneous TID Emanuel Danielle MD 16 Units at 06/11/231654 insulin lispro (HUMALOG) injection vial 0-4 Units 0-4 Units SubCUTAneous Nightly Emanuel Danielle MD 4 Units at 06/11/232023 insulin regular human (humuLIN R U-500 KWIKPEN) 500 UNIT/ML concentrated injection pen 100 Units (Patient Supplied) 100 Units SubCUTAneous BID LISA Danielle MD 100 Units at 06/11/231651 insulin lispro (HUMALOG) injection vial 15 Units 15 Units SubCUTAneous TID LSIA Danielle MD 15 Units at 06/11/231655 glucose chewable tablet 16 g 4 tablet Oral PRN Emanuel Danielle MD dextrose bolus 10% 125 mL 125 mL IntraVENous PRN Emanuel Danielle MD Or dextrose bolus 10% 250 mL 250 mL IntraVENous PRN Emanuel Danielle MD glucagon (rDNA) injection 1 mg 1 mg IntraMUSCular PRN Emanuel Danielle MD dextrose 10 % infusion IntraVENous Continuous PRN Emanuel Danielle MD ASSESSMENT: Principal Problem: Acute pneumonia Active Problems: Controlled type 2 diabetes mellitus with diabetic polyneuropathy, with long-term current use of insulin (HCC) Diabetic neuropathy (HCC) Fibromyalgia Depression Generalized abdominal pain Essential hypertension Dyslipidemia Fatty liver Syncope and collapse Resolved Problems: * No resolved hospital problems. * PLAN: Primary Problem(s): Acute pneumonia Condition is at treatment goal Treatment plan: Continue current treatment Imaging: no further imaging studies ordered today Medications: Continue current antibiotic: Ceftriaxone/Azithromycin Medication Monitoring / High Risk Medications: none Monitor labs and renal function closely IVF d/c IV Solumedrol Breathing treatments Pain medications adjusted Adjust insulin as needed Dispo pending DVT prophylaxis: Lovenox GI prophylaxis: H2 Tana Above plan discussed with the patient who agreed to the above plan Discussed care plan with nurse after getting their input. Please note that this chart was generated using voice recognition Dragon dictation software. Although every effort was made to ensure the accuracy of this automated rn dermatology, some errors in rn dermatology may have occurred. Emanuel Danielle MD 06/12/2023 8:08 AM Patient resting in bed visiting with visitor who is at bedside. Vital signs and assessment completed. Patient rates pain 8/10 at this time in back. Nightly medications given including prn tramadol and baclofen for chronic back pain. Water pitcher refilled. Patient denies any other needs at this time. Call light, bedside table and personal belongings within reach. Pt has 2 insulin pens locked in insurance analyst room. Only using the Humulin 500. Pt stated after being asked where the needles are there is already one on it scenario writer asked you reuse your needles? Pt nodded yes. Notified Dr. Danielle of pts BS of 567. He is looking into her home insulin but said to give 25 total units now and to order lantus [address]. [address] Danielle of pts random BS of 473 when she had called out stating she didn't feel well. Changed her to the high dose SS and said it will run higher from the steroids she was started on. Updated pt and pts family at bedside. They are not happy that they don't know individual people's bodies, they just go off what they were taught. PRN tesslon pearls also given for cough. Told pt scenario writer would update for any changes. Occupational Therapy Facility/Department: [facility] Occupational Therapy Initial Assessment Name: Risa Warner : 1975 Date of Service: 06/11/2023 Discharge Recommendations: Continue to assess pending progress Patient Diagnosis(es): The primary encounter diagnosis was Recurrent syncope. A diagnosis of Pneumonia of both lower lobes due to infectious organism was also pertinent to this visit. Past Medical History: has a past medical history of Allergic rhinitis, Asthma, Chronic back pain, Depression, DM (diabetes mellitus), type 2, uncontrolled with complications, Fibromyalgia, Gastroparesis, H/O echocardiogram, Headache(784.0), HIGH CHOLESTEROL, History of Holter monitoring, History of stress test, Hx of cardiac cath, Hypertension, Hypothyroidism, Kidney stones, Neuropathy, Obesity (BMI 30.0-34.9), LAYNE (obstructive sleep apnea), Osteoarthritis, Restless leg syndrome, RSD (reflex sympathetic dystrophy), RSD (reflex sympathetic dystrophy), and Smoker. Past Surgical History: has a past surgical history that includes shoulder surgery (Right, 1999); Kidney surgery (2007); Lithotripsy (2007); other surgical history (2005); other surgical history; Lithotripsy (Right, 09/05/2013); Upper gastrointestinal endoscopy (07/10/2015); Cardiac catheterization (Left, 12/31/2015); Cystoscopy (Left); Hysterectomy; Vaginal prolapse repair; bladder suspension; Partial hysterectomy; other surgical history (09/2022); Colonoscopy (N/A, 12/08/2022); and Colonoscopy (12/08/2022). Treatment Diagnosis: Generalized weakness Assessment Performance deficits / Impairments: Decreased functional mobility ;Decreased ADL status;Decreased strength;Decreased endurance;Decreased balance;Decreased high-level IADLs Assessment: Pt presents with decreased strength, endurance, balance, and safety awareness affecting her ability to safely perform ADL tasks. Pt would benefit from skilled OT services to address these deficits and return to PLOF. Treatment Diagnosis: Generalized weakness Prognosis: Good Decision Making: Medium Complexity REQUIRES OT FOLLOW-UP: Yes Plan Occupational Therapy Plan Times Per Day: Once a day Days Per Week: 7 Days Current Treatment Recommendations: Strengthening, ROM, Balance training, Functional mobility training, Endurance training, Safety education & training, Patient/Caregiver education & training, Equipment evaluation, education, & procurement, Self-Care / ADL, Home management training Restrictions Restrictions/Precautions Restrictions/Precautions: General Precautions, Fall Risk Subjective Subjective Subjective: Pt reports the biggest issued is her endurance and standing anne. I might need a shower chair. Social/Functional History Social/Functional History Lives With: Spouse Type of Home: House Home Layout: Two level, Able to Live on Main level with bedroom/bathroom Home Access: Stairs to enter without rails Bathroom Shower/Tub: Tub/Shower unit Bathroom Equipment: Hand-held shower ADL Assistance: Independent Homemaking Assistance: Independent Ambulation Assistance: Independent Transfer Assistance: Independent Active Django Developer: Yes Objective Safety Devices Type of Devices: Left in bed;Call light within reach;Nurse notified Bed Mobility Training Bed Mobility Training: Yes Overall Level of Assistance: Stand-by assistance;Assist X1 Interventions: Safety awareness training;Verbal cues Rolling: Stand-by assistance;Assist X1 Supine to Sit: Stand-by assistance;Assist X1 Sit to Supine: Stand-by assistance;Assist X1 Scooting: Stand-by assistance;Assist X1 Balance Sitting: Intact Standing: With support Transfer Training Transfer Training: Yes Overall Level of Assistance: Stand-by assistance Interventions: Safety awareness training Sit to Stand: Stand-by assistance;Assist X1 Stand to Sit: Stand-by assistance;Assist X1 Toilet Transfer: Stand-by assistance Gait Training Gait Training: Yes Gait Overall Level of Assistance: Contact-guard assistance;Assist X1 Interventions: Safety awareness training Base of Support: Widened Speed/Dina: Slow Distance (ft): 25 Feet Assistive Device: Other (comment) (no AD) Toilet Transfers Toilet - Technique: Ambulating Equipment Used: Grab bars Toilet Transfer: Stand by assistance AROM: Within functional limits PROM: Within functional limits Strength: Generally decreased, functional Coordination: Within functional limits Tone: Normal Sensation: Intact ADL Feeding: Independent Grooming: Stand by assistance UE Bathing: Stand by assistance LE Bathing: Contact guard assistance UE Dressing: Stand by assistance LE Dressing: Contact guard assistance Toileting: Stand by assistance Activity Tolerance Activity Tolerance: Patient tolerated evaluation without incident Transfers Sit to stand: Stand by assistance Stand to sit: Stand by assistance Orientation Overall Orientation Status: Within Normal Limits Orientation Level: Oriented X4 Education Given To: Patient;Family Education Provided: Role of Therapy;Plan of Care Education Method: Verbal Barriers to Learning: None Education Outcome: Verbalized understanding AM-PAC Score AM-PAC Inpatient Daily Activity Raw Score: 18 (06/11/23 1506) AM-PAC Inpatient ADL T-Scale Score : 38.66 (06/11/23 1506) ADL Inpatient CMS 0-100% Score: 46.65 (06/11/23 1506) ADL Inpatient CMS G-Code Modifier : CK (06/11/23 1506) Goals Short Term Goals Time Frame for Short Term Goals: 21 visits Short Term Goal 1: Patient will tolerate 15 mins of BUE ther ex/act while maintaining SpO2 WFL to increase overall strength/activity tolerance for functional tasks. Short Term Goal 2: Patient will demo standing tolerance 5-7 mins with support of walker and no LOB to increase safety/participation with ADL tasks. Short Term Goal 3: Pt will be educated on EC strategies and breathing techniques to decrease fatigue and improve participation in ADL's. Short Term Goal 4: To be educated on DME to maximize safety with ADL's upon d/c home. Patient Goals Patient goals : To get better so I can go home. Therapy Time Individual Concurrent Group Co-treatment Time In 0200 Time Out 0215 Minutes 15 Ivet Rinaldi OT Physical Therapy Facility/Department: [facility] Physical Therapy Initial Assessment Name: Risa Warner : 1975 Date of Service: 06/11/2023 Discharge Recommendations: Continue to assess pending progress Patient Diagnosis(es): The primary encounter diagnosis was Recurrent syncope. A diagnosis of Pneumonia of both lower lobes due to infectious organism was also pertinent to this visit. Past Medical History: has a past medical history of Allergic rhinitis, Asthma, Chronic back pain, Depression, DM (diabetes mellitus), type 2, uncontrolled with complications, Fibromyalgia, Gastroparesis, H/O echocardiogram, Headache(784.0), HIGH CHOLESTEROL, History of Holter monitoring, History of stress test, Hx of cardiac cath, Hypertension, Hypothyroidism, Kidney stones, Neuropathy, Obesity (BMI 30.0-34.9), LAYNE (obstructive sleep apnea), Osteoarthritis, Restless leg syndrome, RSD (reflex sympathetic dystrophy), RSD (reflex sympathetic dystrophy), and Smoker. Past Surgical History: has a past surgical history that includes shoulder surgery (Right, 1999); Kidney surgery (2007); Lithotripsy (2007); other surgical history (2005); other surgical history; Lithotripsy (Right, 09/05/2013); Upper gastrointestinal endoscopy (07/10/2015); Cardiac catheterization (Left, 12/31/2015); Cystoscopy (Left); Hysterectomy; Vaginal prolapse repair; bladder suspension; Partial hysterectomy; other surgical history (09/2022); Colonoscopy (N/A, 12/08/2022); and Colonoscopy (12/08/2022). Assessment Body Structures, Functions, Activity Limitations Requiring Skilled Therapeutic Intervention: Decreased functional mobility ;Decreased endurance;Decreased strength;Decreased high-level IADLs;Decreased balance Assessment: Pt is a 48 year old female that was admitted for pneumonia. Pt presents with general weakness, decreased ambulation/activity tolerance, reduced endurance, pain and reduced dynbamic standing balance. Pt will benefit from skilled PT in order to address these deficits. Treatment Diagnosis: general weakness Specific Instructions for Next Treatment: 1x/daily on weekends and holidays Therapy Prognosis: Good Decision Making: Low Complexity Requires PT Follow-Up: Yes Activity Tolerance Activity Tolerance: Patient tolerated evaluation without incident Plan Physcial Therapy Plan General Plan: 2 times a day 7 days a week Specific Instructions for Next Treatment: 1x/daily on weekends and holidays Current Treatment Recommendations: Strengthening, Balance training, Gait training, Functional mobility training, Stair training, Home exercise program, Therapeutic activities, Safety education & training, Neuromuscular re-education, Transfer training, Patient/Caregiver education & training, Endurance training, Pain management Safety Devices Type of Devices: Left in bed, Call light within reach, Nurse notified Restrictions Restrictions/Precautions Restrictions/Precautions: General Precautions, Fall Risk Subjective General Chart Reviewed: Yes Response To Previous Treatment: Not applicable Family / Caregiver Present: No Referring Practitioner: Dr. Danielle Referral Date : 06/11/23 Diagnosis: pneumonia Subjective Subjective: Pt reports feeling fatigued, pt reports chronic back pain of 7/10 Social/Functional History Social/Functional History Lives With: Spouse Type of Home: House Home Layout: Two level, Able to Live on Main level with bedroom/bathroom ADL Assistance: Independent Homemaking Assistance: Independent Ambulation Assistance: Independent Transfer Assistance: Independent Vision/Hearing Cognition Orientation Overall Orientation Status: Within Normal Limits Orientation Level: Oriented X4 Objective Pulse: 88 Heart Rate Source: Monitor BP: (!) 101/52 BP Location: Right upper arm BP Method: Automatic Patient Position: Semi fowlers MAP (Calculated): 68 Respirations: 18 SpO2: 90 % O2 Device: None (Room air) Gross Assessment AROM: Generally decreased, functional Strength: Generally decreased, functional Bed Mobility Training Bed Mobility Training: Yes Overall Level of Assistance: Stand-by assistance;Assist X1 Interventions: Safety awareness training;Verbal cues Rolling: Stand-by assistance;Assist X1 Supine to Sit: Stand-by assistance;Assist X1 Sit to Supine: Stand-by assistance;Assist X1 Scooting: Stand-by assistance;Assist X1 Balance Sitting: Intact Standing: With support Transfer Training Transfer Training: Yes Overall Level of Assistance: Stand-by assistance Interventions: Safety awareness training Sit to Stand: Stand-by assistance;Assist X1 Stand to Sit: Stand-by assistance;Assist X1 Gait Training Gait Training: Yes Gait Overall Level of Assistance: Contact-guard assistance;Assist X1 Interventions: Safety awareness training Base of Support: Widened Speed/Dina: Slow Distance (ft): 25 Feet Assistive Device: Other (comment) (no AD) AM-PAC Score AM-PAC Inpatient Mobility without Stair Climbing Raw Score : 16 (06/11/231314) AM-PAC Inpatient without Stair Climbing T-Scale Score : 45.54 (06/11/231314) Mobility Inpatient CMS 0-100% Score: 40.64 (06/11/231314) Mobility Inpatient without Stair CMS G-Code Modifier : CK (06/11/231314) Goals Short Term Goals Time Frame for Short Term Goals: 20 days Short Term Goal 1: Pt will be educated on her POC and HEP Short Term Goal 2: Pt will perform all transfers independently in order to return to PLOF Short Term Goal 3: Pt will ambulate >/=150 feet no AD independently in order to return to PLOF Short Term Goal 4: Pt will increase dynamic standing balance to Good in order to reduce fall risk Short Term Goal 5: Pt will tolerated 20 minutes of ambulation/exercises with minimal rest breaks in order to increase endurance Patient Goals Patient Goals : to get home Education Patient Education Education Given To: Patient Education Provided: Role of Therapy;Plan of Care Therapy Time Individual Concurrent Group Co-treatment Time In 1221 Time Out 1234 Minutes 13 Sahara Strauss, PT Morning VS and assessment completed. Patient complains of back and neck pain this morning. Educated on medication times. Assisted patient to the bathroom with minimal help. Patient steady on feet. O2 was off patient upon entering room. O2 reads 90%. Will keep patient on room air for now. No further needs at this time. Care ongoing. Orthostatic BPs completed by scenario writer at this time as patient was c/o of multiple episodes of syncope and collapse at home. Patient arrived to [facility], room 315, at this time via wheelchair. Patient independently stood and ambulated to bed. Patient is alert and orientated and on 2L of nasal cannula O2. Patient does NOT normally wear O2 at home. Weight was obtained. documented in this encounter [facility] 12-30-2022 Note CONSULTATION CONSULTATION DATE: 12/30/2022 TO: Dr. Ferraro CHIEF COMPLAINT: Includes severe mid back pain. HISTORY: She reports the pain as being 5-7/10 pain, sharp in character, increasing with activities such as standing, walking and performing transitioning maneuvers. She feels most comfortable in the semi-recumbent position. She denied any change in bowel and bladder habits or new sensorimotor changes in her lower extremities. EXAM: Her examination is notable for the patient having no clinical myelopathy involving the lower extremities or radiculopathy involving the lower extremities on today's visit. Patient did have severe pain with thoracolumbar facet joint loading maneuvers, worse on the right than the left side from approximately T11 through L1, with associated myofascial spasms of the thoracic paravertebral muscles. RECOMMENDATIONS: Our recommendation is the patient to proceed with diagnostic bilateral T11-12, T12-L1 facet joint injection under fluoroscopic guidance. I have asked her to continue with her regimen of tramadol, which she does report it does improve her pain symptoms, improves her quality of life and level of functioning. Denies any side effects. I have also asked her to continue with baclofen 10 mg pills, half a pill to one pill t.i.d. and diclofenac. As part of providing excellent, safe, comprehensive care, the following was completed at our patient's visit: 1. A medication reconciliation and review to ensure accurate knowledge of current/active medications, including asking our patients to inform us about any [id number] medications or herbal remedies/nutritional supplements/alternative remedies. 2. A review to specifically ensure our patients have had annual screening for: elevated body mass index (BMI, see intake chart for exact total), tobacco use, screening for depression, and screening for unhealthy alcohol use. When screening is concerning, patients are provided with education and the specific recommendation to discuss the concerning health issue and treatment options with their primary care provider. [facility] 12-08-2022 History of Present illness Narrative Discharge Criteria Inpatients must meet Criteria 1 through 7. All other patients are either YES or N/A. If a NO is chosen then Anesthesia or Surgeon must be notified. 1. Minimum 30 minutes after last dose of sedative medication, minimum 120 minutes after last dose of reversal agent. Yes 2. Systolic BP stable within 20 mmHg for 30 minutes & systolic BP between 90 & 180 or within 10 mmHg of baseline. Yes 3. Pulse between 60 and 100 or within 10 bpm of baseline. Yes 4. Spontaneous respiratory rate >/= 10 per minute. Yes 5. SaO2 >/= 95 or >/= baseline. Yes 6. Able to cough and swallow or return to baseline function. Yes 7. Alert and oriented or return to baseline mental status. Yes 8. Demonstrates controlled, coordinated movements, ambulates with steady gait, or return to baseline activity function. Yes 9. Minimal or no pain or nausea, or at a level tolerable and acceptable to patient. Yes 10. Takes and retains oral fluids as allowed. Yes 11. Procedural / perioperative site stable. Minimal or no bleeding. Yes 12. If GI endoscopy procedure, minimal or no abdominal distention or passing flatus. Yes 13. Written discharge instructions and emergency telephone number provided. Yes 14. Accompanied by a responsible adult. Yes Patient states they received their colon prep instructions and home medications that are to be taken on the day of their procedure with a small sip of water only, from the physician's office. Instructed pt to stop taking diclofenac 7 days prior to surgery and to take gabapentin and metoprolol with a small sip of water prior to arriving to the hospital the day of surgery. documented in this encounter [facility] [employer] Phone: 12-08-2022 Hospital Discharge instructions Makayla Ji RN - 12/08/2022 1:59 PM EDT SAME DAY SURGERY DISCHARGE INSTRUCTIONS 1. Do not drive or operate hazardous machinery for 24 hours. 2. Do not make important personal or business decisions for 24 hours. 3. Do not drink alcoholic beverages for 24 hours. 4. Do not smoke tobacco products for 24 hours. 5. Eat light foods (Jell-O, soups, etc....) and drink plenty of fluids (water, Sprite, etc...) up to 8 glasses per day, as you can tolerate. 6. Limit your activities for 24 hours. Do not engage in heavy work until your surgeon gives you permission. 7. Call your surgeon for any questions regarding your surgery. 8. Patient should not be left alone for 12-24 hours following surgical procedure. COLONOSCOPY DISCHARGE INSTRUCTIONS: It's normal to have a feeling of fullness or mild cramping in your abdomen afterwards due to air that is put into your bowel during the procedure. Mild activities such as walking will help you pass the air. You may resume your regular diet. You will receive a letter or phone call with your test results in 2 weeks. If you have not received a letter or a phone call in 2 weeks please call the office for your results. CALL THE DOCTOR IF YOU HAVE: Chest pain or trouble breathing. Bleeding from your rectum, vomiting or spitting up of blood that is more than a few streaks or red or black stools A fever above 101F or if you have chills Pain that is worse or different than any pain you had before the procedure Nausea or vomiting that lasts for more than 2 hours. If symptoms are to severe call 911 or go to the nearest Emergency Room. documented in this encounter [facility] Phone: 11-30-2022 Note CONSULTATION CONSULTATION DATE: 11/30/2022 CHIEF COMPLAINT: Includes severe mid back pain, upper lumbar pain, worse on the right side, rated 5-7/10 pain, sharp in character, seems to increase with activities such as standing, walking and performing transitioning maneuvers. She reports standing in one spot for even 15 minutes is quite uncomfortable. She feels most comfortable in the semi-recumbent position. She denies any change in bowel or bladder habits, or new sensorimotor change in the lower extremities. However, she does complain of having sensitivity over her right flank area. EXAM: Her examination is notable for the patient having no clinical radiculopathy involving the lower extremities. She had a moderate amount of pain with thoracolumbar facet loading maneuvers on the right side from approximately T10 though T12 on the right side, with severe myofascial dysfunction involving the thoracolumbar paravertebral muscles. She had severe pain with axial loading maneuvers with pain occurring in the low thoracic and upper lumbar areas. This occurred more in the midline and the posterior on the right side. She had nothing to suggest SI joint dysfunction or low lumbar facet loading pain clinically on today's visit. She had nothing to suggest hip joint dysfunction on today's visit. IMPRESSION: The patient appears to have chronic pain secondary to possible thoracic neuritis and she has dysesthesias and hypoesthesia long the distribution of the right T10 dermatome. Severe pain with thoracic axial loading maneuvers, with point tenderness overlying with appears to be T10-T11 interspace. RECOMMENDATIONS: I have recommended we proceed with thoracolumbar spine films with flexion/extension views. I have placed skin markers over the most painful area. Difficult to assess which level this is occurring at. I have also recommended patient proceed with a thoracic MRI without contrast, to determine if there is a mechanical element to her right T10 neurogenic process and determine if there is a possible discogenic source to her pain symptoms. I have increased her baclofen to 10 mg pills, half a pill to one pill up to t.i.d. as tolerated. Will see the patient back in the office after she undergoes the imaging studies. [facility] 11-23-2022 History of Present illness Narrative Patient arrived for home sleep study. Instructed on home sleep monitoring device use and benefits. documented in this encounter [facility] [employer] Phone: 10-21-2022 Note CONSULTATION CONSULTATION DATE: 10/21/2022 HISTORY OF PRESENT ILLNESS: This is a 47-year-old female who returns to the clinic status post thoracic RFA bilaterally of T9, T10 and T11, T12. This was completed on 09/14/2022 and has afforded her significant relief. On the 04 of October, patient had her spinal stimulator removed by Dr. Sherman in [place]. Overall, she is feeling increased relief, but is having lower back pain below the level of her last procedure. She rates that pain 7/10; describes it as throbbing, achy and pressure. Medications include Requip 4 mg daily, baclofen 10 mg q.h.s., gabapentin 600 mg t.i.d., tramadol 100 mg b.i.d. and duloxetine. Overall though, she feels improvement in her bilateral hips and the generalized aches in her lower legs are not as severe. She is unable to walk more than 50-75 feet, as she feels back tightness and a deep ache. Activities that aggravate her pain are housework, lifting, bending and ADLs. She does not use heat or ice as she feels they are not beneficial. Patient's REVIEW OF SYSTEMS / PAST MEDICAL HISTORY / ALLERGIES and IMAGES have been reviewed and noted on the chart. PHYSICAL EXAM: VITAL SIGNS: Blood pressure 131/73, heart rate is 112. Her height is 5'6 . She weighs 95 kg. GENERAL IMPRESSION: Pleasant, appropriate, in no acute distress. FOCUSED EXAM - BACK: Range of motion is functional in lateral rotation and flexion/extension. Paravertebral muscles are taut but non-spasmodic. Thoracic facets are non-tender upon compression. Lower lumbar facets along L2, L3 and L4, L5 reproduce patient's pain symptomatology. Fullness is palpated at the facets indicative of facet arthropathy, lumbar spondylosis. Tr's point non- tender bilaterally. Negative FABERs and compression test. MUSCULOSKELETAL: Motor is intact, 5/5 bilaterally. Patient walks unassisted with good muscle tone. NEUROLOGICAL: Generalized neuropathy to bilateral hands and feet, which is non- dermatomal. +1 bilateral patellar and Achilles reflexes. DIAGNOSIS: Chronic lower back pain, lumbar degenerative disc disease, lumbar spondylosis and lumbar radiculitis. PLAN: Refill for Cymbalta 60 mg daily and tramadol 50 two pills b.i.d. will be sent today. Due to the patient having her stimulator removed, we will gain updated advanced imaging in the form of a lumbar MRI. We will start the patient on trazodone 100 mg q.h.s. for sleep. In approximately 6-7 weeks, we will move forward with the #1 bilateral MBB of L2, L3 and L4, L5. I did educate the patient on using Biofreeze daily as well as at least 20 minutes of heat application as well. Stretches were discussed and demonstrated for her. Patient agrees to move with the procedure and be followed up in the clinic thereafter. [facility] 10-08-2022 History of Present illness Narrative Patient instructed on extended computer application developer indications and use. Diary sent with patient. documented in this encounter [facility] [employer] Phone: 09-29-2022 History of Present illness Narrative Instructed on objectives and procedure of a tilt study [facility] Phone: 09-07-2022 Evaluation note Encounter Date Diagnosis Assessment Notes Aug, Pain from implanted hardware, initial encounter (ICD-10 - T85.848A) I independently evaluated the myelogram with CT to follow. The patient has essentially normal spinal canal with no significant nerve root impingement. The patient has a dorsal column stimulator that has been of no benefit to her; she would like to be able to have MRIs in the future and she would like to have the dorsal column stimulator removed. She was actually supposed to have it removed last year, we went through informed consent with her and she apparently declined the procedure because she did not have a co-pay. She has now again discussed removing the dorsal column stimulator wires she understands the indication operation postop course risk and benefits of surgery which include inability to remove the wires completely, potential infection. Highly unlikely that there would be a spinal complication with this.Patient understands agrees and would like to proceed with surgical intervention [employer] Other 12-01-2022 NoteCONSULTATION CONSULTATION DATE: 08/26/2022 HISTORY OF PRESENT ILLNESS: This is a 47-year-old female, returning to the clinic status post #1 bilateral MBB of T9, T10 and T11, T12 completed on 08/10/2022. The patient was afforded 95% relief for one and a half weeks. The patient is very pleased with the results as this is the most relief of her pain she has ever gotten. During that time of her relief, she was able to help take care of her granddaughter with standing, ascending stairs and bending. The patient states, prior to the injection, she would not have been able to tolerate those movements. She does have a pending appointment on 09/07/[address] Sherman in [place] to discuss removal of her nerve stimulator. She is diabetic with the most recent A1c being 7.8 as of yesterday. This is a great improvement for her. Medications include diclofenac 75 mg b.i.d., Requip 4 mg daily, duloxetine, gabapentin, baclofen and Monarch 5/325 b.i.d. The patient is inquiring about returning to tramadol, as she felt she got better pain relief with the tramadol over the Monarch. Current pain at rest today is 4/10; will increase to 7/10 with physical activity. Patient's REVIEW OF SYSTEMS / PAST MEDICAL HISTORY / ALLERGIES and IMAGES have been reviewed and they are noted on the chart. PHYSICAL EXAM: VITAL SIGNS: Blood pressure 142/83, heart rate is 107. Temperature is 97.7. She is 5'6 and weighs 94.7 kg. GENERAL APPEARANCE: Pleasant, appropriate, no acute distress. FOCUSED EXAM - BACK: Range of motion is guarded in lateral rotation and flexion/extension. Reproduction of spinal axial pain to direct compression along the posterior elements of the thoracic nerves of T9, T10 and T11, T12. Thoracic trapezius muscles are taut. MUSCULOSKELETAL: Motor is 4/5 bilateral lower extremities. Patient ambulates steadily unassisted. NEUROLOGICAL: Diffuse polyneuropathy bilateral hands and feet. Patient is cognitively intact. DIAGNOSIS: Thoracic pain, thoracic spondylosis, thoracic degenerative disc disease and thoracic neuritis. PLAN: We will move forward with radiofrequency ablations on the left and moving to the right of T9, T10 and T11, T12. On her next medication refill, we will change to tramadol 100 mg extending release b.i.d. Patient will follow up in the clinic post procedure and agrees to move forward.[facility] 08-06-2022 History of Present illness Narrative* Vineet Nam PT - 08/06/2022 1:15 PM EST No charge note Pt ambulated into the clinic holding her L side and reported she had severe pain that radiated around her rib. She was offered tx, but reported it was too painful and was going to go to the ED. Patient will be discharged from skilled PT and was given pool passes to continue with aquatic exercises. Vineet Nam PT, DPT [facility] [employer] Work Phone: [phone] 153-511711-03-2022 NoteCONSULTATION CONSULTATION DATE: 07/29/2022 HISTORY OF PRESENT ILLNESS: This is a 47-year-old female returning to the clinic for a three month follow up for chronic mid/lower back pain and buttock pain. Today, she rates her pain 9/10, and she describes two locations that being mid thoracic and lower lumbar pain. Her primary site, however, is mid thoracic pain and she is interested in interventional procedures for that region. She does have a nerve stimulator that was implanted at the level of T12-L1 that extends and ends at T10. She is scheduled to have this removed by Dr. Sherman in [place] on 09/07/2022. She was last seen on 04/29/2022 which, at that time, she was just starting physical therapy as prescribed by her supervisor machine workers. She feels, between ground and the pool therapy, overall better in regards to her joint pain. Activities such as sitting, standing, lying, housework and stairs aggravate her pain. Her medications include baclofen 10 mg q.h.s., gabapentin 600 mg t.i.d., Requip 4 mg daily and duloxetine 60 mg daily. She is on hydrocodone 5/325 daily p.r.n. Patient's REVIEW OF SYSTEMS / PAST MEDICAL HISTORY / ALLERGIES and IMAGES have been reviewed and they are noted on the chart. PHYSICAL EXAM: GENERAL IMPRESSION: Pleasant, appropriate, no acute distress. FOCUSED EXAM - BACK: Range of motion is guarded in lateral rotation and flexion/extension. Spinal axial pain is reproduced along the compression of the thoracic facets of T9, T10 and T11, T12. Bilateral trapezius thoracic muscles are spasmodic with trigger points identified with positive jump response to the left. Pain does radiate to mid axillary line on the left. MUSCULOSKELETAL: Motor is intact, 4/5 bilaterally, upper and lower extremities. Patient does not use assistive device, has good muscle tone.. NEUROLOGICAL: Patchy hypoesthesia noted along T10-T11 dermatomes to the left. +1 bilateral brachioradialis reflexes. DIAGNOSIS: Thoracic pain, thoracic degenerative disc disease, thoracic neuritis. PLAN: Refills will be given for Requip 4 mg daily and duloxetine 60 mg daily. We will move forward with the #1 bilateral medial branch block to T9, T10 and T11, T12. Patient does agree with this and will be followed up in the office post procedure.[id number] History of Present illness Narrative* Mulu Shazia, MILAGROS - 07/19/2022 4:30 PM EDT [facility] Outpatient Physical Therapy Daily Note Patient: Risa Warner : 1975 CSN #: [id number] Referring Physician: Tyree Hidalgo MD Date: 07/19/2022 Diagnosis: Other LBP, M54.59, pain in unspecified hip, M25.559 Treatment Diagnosis: Decreased activity endurance, trochanteric bursitis, chronic LBP PT Insurance Information: [employer] [place] Total # of Visits Approved: 20 Per Physician Order Total # of Visits to Date: 18 No Show: 0 Canceled Appointment: 2 Pre-Treatment Pain: 05/05 Subjective: Pt reports both hip are very sore and tight this date, also reports her R foot is bothering her as well. Pt reports B hip and LBP 05/05. Pt stated she stood awhile making dinner and then cleaning the kitchen up yesterday, and then today she had a doctors appointment and had to walk from one end of the hospital to the other for therapy so attributes those activities to her increased fatigue and stiffness this date. Exercises: Exercise 12: Water walk x3 in water fwd, lateral and retro, marches and HS curls--2-3x each this date d/t fatigue. Exercise 13: Sink x10 in deeper water Exercise 14: Pool:seated LAQ, march and hip abd x10 Exercise 15: Pool:Standing fwd flex at bar stretch 4x20 ; hip rocks side to side x15, step stretches knee flexion and extension 20 x 3 B LE. Exercise 17: Pool: decompressive hang x7 min 3# ankle weights Exercise 18: Pool: jet massage to reduce tone in low back/hips Exercise 19: AQ: conner theraband retract/LAE x10, shoulder 90/90 double green dumbbells Assessment Body Structures, Functions, Activity Limitations Requiring Skilled Therapeutic Intervention: Decreased functional mobility , Decreased ADL status, Decreased endurance, Decreased ROM, Increased pain, Decreased posture, Decreased balance, Decreased high-level IADLs, Decreased strength Assessment: Continued to progress aquatic program as tolerated, pt limited by pain, stiffness and fatigue this date. Initiated shoulder 90/90 for improved core stability and posture. Will continue toprogress as tolerated. Activity Tolerance Activity Tolerance: Patient limited by pain, Patient limited by fatigue Patient Education Patient Education: initiated new exercises with good return demonstration noted. Pt verbalized/demonstrated good understanding: [x] Yes [] No, pt required further clarification. Post Treatment Pain: 05/05 Plan Plan Frequency: 2 Plan weeks: 4 Goals (Total # of Visits to Date: 18) Short Term Goals Time Frame for Short Term Goals: 2 weeks Short Term Goal 1: Patient will be initiated with a HEP -MET Short Term Goal 2: Patient will tolerate 30 min of aquatic exercise to improve endurance for ADLs. -met [facility] Goals Time Frame for [facility] Goals : 4 weeks [facility] Goal 1: Patient will be independent and compliant with a HEP -met Director Of [facility] And [facility] Goal 2: Patient will improve bilateral hip ROM to 90* for ADLs [facility] Goal 3: Patient will improve bilateral LE strength to >/= 4/5 for ADLs. [facility] Goal 4: Patient will improve 5 time sit to stand test time to <30 seconds to indicate improved muscular power Director Of Collections And [facility] Goal 5: The patient will improve ambulation endurance to be able to ambulate >300' before requiring a seated rest break. Minutes Tracking: Time In: 1611 Time Out: 1705 Minutes: 54 Timed Code Treatment Minutes: 51 Minutes Mulu Mccray, ROLL THREADER OPERATOR [id number] Date: 07/19/2022 [facility] [employer] Phone: 1(103) 708-244010-21-2022 History of Present illness Narrative* Vineet Nam PT - 07/16/2022 2:45 PM EDT [facility] Outpatient Physical Therapy Daily Note Patient: Risa Warner : 1975 CSN #: [id number] Referring Physician: Tyree Hidalgo MD Date: 07/16/2022 Treatment Diagnosis: Decreased activity endurance, trochanteric bursitis, chronic LBP PT Insurance Information: [employer] [place] Total # of Visits Approved: 20 Per Physician Order Total # of Visits to Date: 17 No Show: 0 Canceled Appointment: 2 Pre-Treatment Pain: 05/05 Subjective: Patient reports seeing Dr. Hidalgo yesterday and reports she was very sore and painful from the drive. She reports he wants her to work on her aerobic fitness and sleep schedule. Exercises: Exercise 2: LTR x10 ea Exercise 6: Therapy ball rollout x10 Exercise 8: Piriformis stretch 2x30 sec, sktc 2x30 sec Manual: Other: Dry needling with 2 needles to lumbar spine paraspinals, 3 needles to bilateral hip abductors and piriformis. Heated thermoprobe massage following needling to increase blood flow and decrease pain. Assessment Body Structures, Functions, Activity Limitations Requiring Skilled Therapeutic Intervention: Decreased functional mobility , Decreased ADL status, Decreased endurance, Decreased ROM, Increased pain, Decreased posture, Decreased balance, Decreased high-level IADLs, Decreased strength Assessment: Used dry needling along with heated thermoprobe to decrease pain and muscle tension. Patient demonstrated improved bilateral hip flexion today with stretches. She reported decreased pain following her tx session. Activity Tolerance Activity Tolerance: Patient limited by pain Patient Education Patient Education: Education on energy conservation this date. Pt verbalized/demonstrated good understanding: [x] Yes [] No, pt required further clarification. Post Treatment Pain: 04/04 Plan Plan Frequency: 2 Plan weeks: 4 Goals (Total # of Visits to Date: 17) Short Term Goals Time Frame for Short Term Goals: 2 weeks Short Term Goal 1: Patient will be initiated with a HEP -MET Short Term Goal 2: Patient will tolerate 30 min of aquatic exercise to improve endurance for ADLs. -met [facility] Goals Time Frame for [facility] Goals : 4 weeks Director Of Collections And Archives Goal 1: Patient will be independent and compliant with a HEP -met [facility] Goal 2: Patient will improve bilateral hip ROM to 90* for ADLs Director Of [facility] And [facility] Goal 3: Patient will improve bilateral LE strength to >/= 4/5 for ADLs. Director Of [facility] And [facility] Goal 4: Patient will improve 5 time sit to stand test time to <30 seconds to indicate improved muscular power Director Of [facility] And [facility] Goal 5: The patient will improve ambulation endurance to be able to ambulate >300' before requiring a seated rest break. Minutes Tracking: Time In: 1445 Time Out: 1530 Minutes: 45 Timed Code Treatment Minutes: 43 Minutes Vineet Nam PT, DPT Date: 07/16/2022 documented in this encounterBON [facility]ALEClifford [place] Phone: 1([phone] 298-481810-17-2022 History of Present illness Narrative* Mulu Mccray PTA - 07/12/2022 2:15 PM EDT [facility] Outpatient Physical Therapy Daily Note Patient: Risa Warner : 1975 [facility] #: [id number] Referring Physician: Tyree Hidalgo MD Date: 07/12/2022 Treatment Diagnosis: Decreased activity endurance, trochanteric bursitis, chronic LBP PT Insurance Information: [employer] [place] Total # of Visits Approved: 20 Per Physician Order Total # of Visits to Date: 15 No Show: 0 Canceled Appointment: 2 Pre-Treatment Pain: 8/10 Subjective: Pt reports her low back has been very sore and tired today, rating pain a high 8/10. B hips and L foot 7/10. Pt reports she is more tired than usual Exercises: Exercise 12: Water walk x3 in water fwd, lateral and retro, marches and HS curls--2x each this dated/t fatigue. Exercise 14: Pool:seated LAQ, march and hip abd x10; seated hip stretching 3x20 each (knee down then knee towards shoulder)--no stretch this date. Exercise 15: Pool:Standing fwd flex at bar stretch 4x20 ; hip rocks side to side x15, step stretches knee flexion and extension 20 x 3 B LE. Exercise 17: Pool: decompressive hang x5 min 3# ankle weights Exercise 18: Pool: jet massage to reduce tone in low back/hips Assessment Body Structures, Functions, Activity Limitations Requiring Skilled Therapeutic Intervention: Decreased functional mobility , Decreased ADL status, Decreased endurance, Decreased ROM, Increased pain, Decreased posture, Decreased balance, Decreased high-level IADLs, Decreased strength Assessment: Pt reports she is getting up and down from the seated position easier and she generallyhas improved tolerance getting out to her car after therapy. Pt states she continues to have good days and bad days. Able to progress reps on standing and seated therex this date. Introduced step stretches to improve mobility. Initiated walking laps of HS curls and marches this date. Pt declined completing standing hip abd and marches d/t fear of increased hip pain. Activity Tolerance Activity Tolerance: Patient limited by pain, Patient limited by fatigue Patient Education Patient Education: Use heat/ice PRN, continue HEP Pt verbalized/demonstrated good understanding: [x] Yes [] No, pt required further clarification. Post Treatment Pain: 04/04 Plan Plan Frequency: 2 Plan weeks: 4 Goals (Total # of Visits to Date: 15) Short Term Goals Time Frame for Short Term Goals: 2 weeks Short Term Goal 1: Patient will be initiated with a HEP -MET Short Term Goal 2: Patient will tolerate 30 min of aquatic exercise to improve endurance for ADLs. -met [facility] Of [facility] Goals Time Frame for [facility] Goals : 4 weeks Director Of [facility] And [facility] Goal 1: Patient will be independent and compliant with a HEP -met [facility] Goal 2: Patient will improve bilateral hip ROM to 90* for ADLs [facility] Goal 3: Patient will improve bilateral LE strength to >/= 4/5 for ADLs. Director Of [facility] And [facility] Goal 4: Patient will improve 5 time sit to stand test time to <30 seconds to indicate improved muscular power [facility] Goal 5: The patient will improve ambulation endurance to be able to ambulate >300' before requiring a seated rest break. Minutes Tracking: Time In: 1411 Time Out: 1457 Minutes: 46 Timed Code Treatment Minutes: 44 Minutes [facility] Mulu Mccray, ROLL THREADER OPERATOR [id number] Date: 07/12/2022 documented in this encounterB[facility] Work Phone: [phone]) 397-645810-10-2022 History of Present illness Narrative* Karrei Beltran PTA - 07/05/2022 3:00 PM EDT [facility] Outpatient Physical Therapy Daily Note Patient: Risa Warner : 1975 CSN #: [id number] Referring Physician: Tyree Hidalgo MD Date: 07/05/2022 Treatment Diagnosis: Decreased activity endurance, trochanteric bursitis, chronic LBP PT Insurance Information: [employer] [place] Total # of Visits Approved: 20 Per Physician Order Total # of Visits to Date: 13 No Show: 0 Canceled Appointment: 2 Pre-Treatment Pain: 7-8 Subjective: Pt reports having 8/10 low back pain and 7/10 B hip pain Exercises: Exercise 1: HEP: Progressive ambulation, sktc 2x20 sec hold, piriformis stretch 2x20 sec; bridging,seated november without back support Exercise 12: Water walk x3 in water fwd, lateral and retro; november walk, butt kick x2 laps ea; additional 3 laps fwd before decompressive hang Exercise 15: Pool:Standing fwd flex at bar stretch 4x15 ; hip rocks side to side x10 Exercise 17: Pool: decompressive hang x5 min 3# ankle weights Exercise 20: AQ: SKTC 15 x3 each side Assessment Assessment: Focused on gentle mobility and increasing trunk and LE ROM through dynamic movements within a tolerable range. Pt reports pain in BLE reduced some after tx. Reduced weight on ankles with decomrpressive hang. Educated on continuing to focus on gait pattern as she tends to lack toe off Bilaterally. WIll continue with aquatics for increased strength/ROM in an unloaded environment. Activity Tolerance Activity Tolerance: Patient tolerated treatment well, Patient limited by pain Patient Education Ex rationale, gait pattern, increased activity at home Pt verbalized/demonstrated good understanding: [x] Yes [] No, pt required further clarification. Post Treatment Pain: 05/05 Plan Plan Frequency: 2 Plan weeks: 4 Goals (Total # of Visits to Date: 13) Short Term Goals Time Frame for Short Term Goals: 2 weeks Short Term Goal 1: Patient will be initiated with a HEP -MET Short Term Goal 2: Patient will tolerate 30 min of aquatic exercise to improve endurance for ADLs. -met [facility] Goals Time Frame for [facility] Goals : 4 weeks [facility] Of [facility] Goal 1: Patient will be independent and compliant with a HEP -met Director Of [facility] And [facility] Goal 2: Patient will improve bilateral hip ROM to 90* for ADLs Director Of [facility] Goal 3: Patient will improve bilateral LE strength to >/= 4/5 for ADLs. Director Of [facility] Goal 4: Patient will improve 5 time sit to stand test time to <30 seconds to indicate improved muscular power Director Of [facility] Goal 5: The patient will improve ambulation endurance to be able to ambulate >300' before requiring a seated rest break. Minutes Tracking: Time In: 1500 Time Out: 1543 Minutes: 43 Karrie Beltran, ROLL THREADER OPERATOR Date: 07/05/2022 documented in this encounterBON [facility]OT[facility] Phone: 1(610) 214-815310-07-2022 History of Present illness Narrative* Vineet Nam, PT - 07/02/2022 10:00 AM EDT [facility] Outpatient Physical Therapy Daily Note Patient: Risa Warner : 1975 [facility] #: [id number] Referring Physician: Tyree Hidalgo MD Date: 07/02/2022 Treatment Diagnosis: Decreased activity endurance, trochanteric bursitis, chronic LBP PT Insurance Information: [employer] [place] Total # of Visits Approved: 20 Per Physician Order Total # of Visits to Date: 12 No Show: 0 Canceled Appointment: 2 Pre-Treatment Pain: 8/10 Subjective: Patient reports rib pain, back pain, L hip pain, calf and foot pain coming into therapy. She reports 8/10 pain coming into therapy. Exercises: Exercise 2: LTR x10 ea Exercise 6: Therapy ball rollout x10 Exercise 8: Piriformis stretch 2x30 sec, sktc 2x30 sec Manual: Other: Dry needling with 2 needles to lumbar spine paraspinals, 3 needles to bilateral hip abductors and piriformis. Heated thermoprobe massage following needling to increase blood flow and decrease pain. Assessment Body Structures, Functions, Activity Limitations Requiring Skilled Therapeutic Intervention: Decreased functional mobility , Decreased ADL status, Decreased endurance, Decreased ROM, Increased pain, Decreased posture, Decreased balance, Decreased high-level IADLs, Decreased strength Assessment: Used dry needling and heated thermoprobe massage to decrease soft tissue restrictions and pain. Continued with flexibility and gentle stretching exercises. Activity Tolerance Activity Tolerance: Patient tolerated treatment well, Patient limited by pain Patient Education Patient Education: Use heat/ice PRN, continue HEP Pt verbalized/demonstrated good understanding: [x] Yes [] No, pt required further clarification. Post Treatment Pain: 8/10 Plan Plan Frequency: 2 Plan weeks: 4 Goals (Total # of Visits to Date: 12) Short Term Goals Time Frame for Short Term Goals: 2 weeks Short Term Goal 1: Patient will be initiated with a HEP -MET Short Term Goal 2: Patient will tolerate 30 min of aquatic exercise to improve endurance for ADLs. -met Director Of [facility] And [facility] Goals Time Frame for Director Of Collections And Archives Goals : 4 weeks [facility] Goal 1: Patient will be independent and compliant with a HEP [facility] Goal 2: Patient will improve bilateral hip ROM to 90* for ADLs [facility] Goal 3: Patient will improve bilateral LE strength to >/= 4/5 for ADLs. [facility] Goal 4: Patient will improve 5 time sit to stand test time to <30 seconds to indicate improved muscular power [facility] Goal 5: The patient will improve ambulation endurance to be able to ambulate >300' before requiring a seated rest break. Minutes Tracking: Time In: 1000 Time Out: 1045 Minutes: 45 Timed Code Treatment Minutes: 43 Minutes Vineet Nam PT, DPT Date: 07/02/2022 documented in this encounterBON [facility] Work Phone: 1([phone]) 639-669110-03-2022 History of Present illness Narrative* Karrie Beltran, ROLL THREADER OPERATOR - 06/28/2022 3:00 PM EDT [facility] Outpatient Physical Therapy Daily Note Patient: Risa Warner : 1975 CSN #: [id number] Referring Physician: Tyree Hidalgo MD Date: 06/28/2022 Treatment Diagnosis: Decreased activity endurance, trochanteric bursitis, chronic LBP PT Insurance Information: [employer] [place] Total # of Visits Approved: 20 Per Physician Order Total # of Visits to Date: 10 No Show: 0 Canceled Appointment: 2 Pre-Treatment Pain: 8/10 low back, 6/10 in B knee in hips Subjective: Pt states she's having an increase in frequency in pain around lower ribs, she states she thinks it's due to the fatty liver. Pt reports 8/10 low back, 6/10 in hips and knees. States her B calves always feel like they are going to ball up before a cramp. She states the HEP stretchesare getting easier. Exercises: Exercise 1: HEP: Progressive ambulation, sktc 2x20 sec hold, piriformis stretch 2x20 sec; bridging,seated november without back support Exercise 12: Water walk x3 in water fwd, lateral and retro, march walk Exercise 14: Pool:seated LAQ, march and hip abd x10 Exercise 17: Pool: decompressive hang x5 min 8# ankle weights Exercise 18: Pool: jet massage to reduce tone in low back/hips Exercise 19: AQ: yellow theraband retract/LAE 2x10 Exercise 20: AQ: blue bar for abs x10 Assessment Assessment: Pt was progressed with core stability exercises while in the pool to improve general strength/stability to reduce stress on spine. She had no increased pain with tx, she remains highly guarded with stretching. Pt had bout of lower rib pain during ambulation and required RB d/t pain. 8# ankle weights used with decompressive hanging to increase distraction of vertebrae. Updated HEP and reviewed with pt. Will progress aquatics for increased strength/ROM in an unloaded environment. Activity Tolerance Activity Tolerance: Patient tolerated treatment well Patient Education Exercise rationale, HEP progression Pt verbalized/demonstrated good understanding: [x] Yes [] No, pt required further clarification. Post Treatment Pain: 05/05 low back - not a sollid 8 like when I came in, it's a little better. Plan Plan Frequency: 2 Plan weeks: 4 Goals (Total # of Visits to Date: 10) Short Term Goals Time Frame for Short Term Goals: 2 weeks Short Term Goal 1: Patient will be initiated with a HEP -MET Short Term Goal 2: Patient will tolerate 30 min of aquatic exercise to improve endurance for ADLs. -met [facility] Goals Time Frame for Director Of Collections And Archives Goals : 4 weeks Director Of [facility] And [facility] Goal 1: Patient will be independent and compliant with a HEP Director Of [facility] Goal 2: Patient will improve bilateral hip ROM to 90* for ADLs [facility] Goal 3: Patient will improve bilateral LE strength to >/= 4/5 for ADLs. Director Of [facility] Goal 4: Patient will improve 5 time sit to stand test time to <30 seconds to indicate improved muscular power Director Of [facility] Goal 5: The patient will improve ambulation endurance to be able to ambulate >300' before requiring a seated rest break. Minutes Tracking: Time In: 1502 Time Out: 1542 Minutes: 40 Karrie Beltran, MILAGROS Date: 06/28/2022 [facility] encounterB[facility] [employer] Phone: 1([phone]) [phone] History of Present illness Narrative* Karrie Beltran, MILAGROS - 06/18/2022 1:30 PM EDT [facility] Outpatient Physical Therapy Daily Note Patient: Risa Warner : 1975 [facility] #: [id number] Referring Physician: Tyree Hidalgo MD Date: 06/18/2022 Treatment Diagnosis: Decreased activity endurance, trochanteric bursitis, chronic LBP PT Insurance Information: [employer] [place] Total # of Visits Approved: 12 Per Physician Order Total # of Visits to Date: 7 No Show: 0 Canceled Appointment: 2 Pre-Treatment Pain: 6 /10 Subjective: Pt states she feels like she is able to take bigger steps today. Reports soreness afterlast visit but not as bad as the first visit. Pt reports 6/10 low back and L hip. States her RLE isn't bothering her as bad today. Exercises: Exercise 1: HEP: Progressive ambulation, sktc 2x20 sec hold, piriformis stretch 2x20 sec Exercise 12: Water walk x2 in deeper water fwd, lateral and retro Exercise 14: seated LAQ, march and hip abd x10 Exercise 15: Standing fwd flex at bar stretch 4x15 Exercise 17: Pool: decompressive hang x5 min 5# ankle weights Assessment Assessment: Continued with current program without complaints. Pt reports noticing reduced pain in RLE today. Pt less guarded with pool therapy . She requested to use additional weight on BLE during decompressive hang so she had a total of 8# with increased relief reported. Plan to progress aquatics this next week for increased strength/ROM in an unloaded environment. Activity Tolerance Activity Tolerance: Patient tolerated treatment well Patient Education Ex technique and rationale Pt verbalized/demonstrated good understanding: [x] Yes [] No, pt required further clarification. Post Treatment Pain: 6 /10 Plan Plan Frequency: 2-3 Plan weeks: 4-6 Goals (Total # of Visits to Date: 7) Short Term Goals Time Frame for Short term goals: 2 weeks Short term goal 1: Patient will be initiated with a HEP -MET Short term goal 2: Patient will tolerate 30 min of aquatic exercise to improve endurance for ADLs. 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 senior living goal 4: Patient will improve 5 time sit to stand test time to <30 seconds to indicate improved muscular power senior living goal 5: The patient will improve ambulation endurance to be able to ambulate >300' before requiring a seated rest break. Minutes Tracking: Time In: 1332 Time Out: 1406 Minutes: 34 Karrie MILAGROS Beltran Date: 06/18/2022 documented in [facility] encounterB[facility] [employer] Work Phone: [phone]) 826-620009-19-2022 History of Present illness Narrative* Karrie Ruby, ROLL THREADER OPERATOR - 06/14/2022 3:00 PM EDT [facility] Outpatient Physical Therapy Daily Note Patient: Risa Warner : 1975 CSN #: [id number] Referring Physician: Tyree Hidalgo MD Date: 06/14/2022 Treatment Diagnosis: Decreased activity endurance, trochanteric bursitis, chronic LBP PT Insurance Information: [employer] [place] Total # of Visits Approved: 12 Per Physician Order Total # of Visits to Date: 5 No Show: 0 Canceled Appointment: 2 Pre-Treatment Pain: 7 /10 Subjective: Pt checked in at appt time but was unaware to come straight back to pool after check inso she entered pool ~15 min past time. Pt reports 7/10 pain in back and hips today. Pt states she had one day of relief after needling and liked it. Exercises: Exercise 1: HEP: Progressive ambulation, sktc 2x20 sec hold, piriformis stretch 2x20 sec Exercise 12: Water walk x2 in deeper water fwd, lateral and retro Exercise 13: Sink x10 in deeper water Exercise 17: Pool: decompressive hang x5 min 3# ankle weights Exercise 18: Pool: jet massage to reduce tone in low back/hips Assessment Assessment: Progressed with aquatic exercises today. Pt limited with ex completed d/t guarding and limited time. Pt reports most relief during decompressive hang and jet massage. encouraged to continue HEP. Will continue with aquatics for increased strength/ROM in an unloaded environment. Activity Tolerance Activity Tolerance: Patient tolerated treatment well Patient Education Ex technique, rationale, HEP Pt verbalized/demonstrated good understanding: [x] Yes [] No, pt required further clarification. Post Treatment Pain: 8 /10 Plan Plan Frequency: 2-3 Plan weeks: 4-6 Goals (Total # of Visits to Date: 5) Short Term Goals Time Frame for Short term goals: 2 weeks Short term goal 1: Patient will be initiated with a HEP -MET Short term goal 2: Patient will tolerate 30 min of aquatic exercise to improve endurance for ADLs. -met [facility] Goals Time Frame for senior living goals : 4 weeks senior living goal 1: Patient will be independent and compliant with a HEP senior living goal 2: Patient will improve bilateral hip ROM to 90* for ADLs senior living goal 3: Patient will improve bilateral LE strength to >/= 4/5 for ADLs. 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 Minutes Tracking: Time In: 1515 Time Out: 1545 Minutes: 30 Karrie Beltran PTA Date: 06/14/2022 documented in this encounterSAINTS MEDICAL CENTERClifford Thames Phone: [phone]) 281-592309-07-2022 History of Present illness Narrative* Cristina Antonio - 06/02/2022 1:45 PM EDT [facility] Inpatient/Observation/Outpatient Rehabilitation Date: 06/02/2022 Patient Name: Risa Warner [] Inpatient Acute/Observation [] Outpatient : 1975 [] Pt no showed for scheduled appointment [] Pt refused/declined therapy at this time due to: [x] Pt cancelled due to: [] No Reason Given [] Sick/ill [] Other: Has 2 open wounds cx today and tuesday Therapist/Physical Medicine Teacher will attempt to see this patient, at our earliest opportunity. Cristina Antonio Date: 06/02/2022 documented in this [facility] Work Phone: [phone]) 236-561308-30-2022 History of Present illness Narrative* Nathan Garcia, PT - 05/25/2022 2:45 PM EDT [facility] Outpatient Physical Therapy Daily Note Patient: Risa Warner : 1975 CSN #: [id number] Referring Physician: Tyree Hidalgo MD Date: 05/25/2022 Treatment Diagnosis: Decreased activity endurance, trochanteric bursitis, chronic LBP Total # of Visits Approved: 12 Per Physician Order Total # of Visits to Date: 2 No Show: 0 Canceled Appointment: 0 Pre-Treatment Pain: 05/05 Subjective: Pt states she feels about the same as IE but had no increase in symptoms or discomfort with HEP. Pt rates pain 05/05 and states today is shu relative to other days. Exercises: Exercise 2: Seated Trunk Flexion with ball x10F/x5R/L Exercise 3: Pelvic tilting with abset (seated pushdown into ball with lumbar extension) x10 Exercise 4: Pelvic MET (iso hip flexion) 4x15 B Exercise 5: Standing lumbar extension with gentle pelvic rotation x5 Modalities: 15' IFC to lumbar spine to reduce pain and improve circulation Assessment Body Structures, Functions, Activity Limitations Requiring Skilled Therapeutic Intervention: Decreased functional mobility , Decreased ADL status, Decreased endurance, Decreased ROM, Increased pain, Decreased posture, Decreased balance, Decreased high-level IADLs, Decreased strength Assessment: Pt responded well to inital therex including trunk mobility and MET techniques to help maintian pelvic alignment and to reduce pain. Pt demonstrated good motor control and had good understanding of HEP. Plan to progress pt as tolerated. Activity Tolerance Activity Tolerance: Patient tolerated treatment well, Patient limited by pain Patient Education Patient Education: PT POC, HEP, aquatic exercise rationale Pt verbalized/demonstrated good understanding: [x] Yes [] No, pt required further clarification. Post Treatment Pain: 7-05/05 Plan Plan Frequency: 2-3 Plan weeks: 4-6 Goals (Total # of Visits to Date: 2) Short Term Goals Time Frame for Short term goals: 2 weeks Short term goal 1: Patient will be initiated with a HEP Short term goal 2: Patient will tolerate 30 min of aquatic exercise to improve endurance for ADLs. Director Of Collections And Archives Goals Time Frame for coating line worker goals : 4 weeks senior living goal 1: Patient will be independent and compliant with a HEP senior living goal 2: Patient will improve bilateral hip ROM to 90* for ADLs senior living goal 3: Patient will improve bilateral LE strength to >/= 4/5 for ADLs. 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 Minutes Tracking: Time In: 1446 Time Out: 1543 Minutes: 57 Timed Code Treatment Minutes: 54 Minutes Nathan Garcia PT Date: 05/25/2022 documented in this encounterBON turboBOTZ Phone: 1(402) 370-602108-04-2022 NoteCONSULTATION CONSULTATION DATE: 04/29/2022 HISTORY OF PRESENT ILLNESS: This is a 47-year-old female, returning to the clinic status post left SI joint injection completed on 04/13/2022 that afforded her 80% relief. During her last visit on 04/01/2022, her left SI joint was her primary location of pain. Today, with the relief on her left side post procedure, she is complaining of right sided back, buttock and hip pain. The patient is currently under the care of multiple disciplines at this time including Rheumatology. She is also under GI/Gastro for fatty liver disease. She recently saw her supervisor machine workers and was prescribed physical therapy. The patient has not proceeded with the physical therapy, as she was hoping this most recent SI joint injection would mitigate her symptoms, which it did not for that location only. She rates her pain 10/10 today, describing as throbbing and aching to her right lower buttock. She complains of radiating pain down the posterior aspect of her right leg to the level of the knee. She states it is uncomfortable to sit flat on her buttock and she needs to lean to the left. 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 Current medications include baclofen 10 mg q.h.s., Cymbalta 60 mg daily, diclofenac 75 mg b.i.d., gabapentin, Requip. She was on a tramadol in the past, is currently on hydrocodone 5/325 b.i.d. Patient's REVIEW OF SYSTEMS / PAST MEDICAL HISTORY / ALLERGIES and IMAGES have been reviewed and they are noted on the chart. PHYSICAL EXAM: VITAL SIGNS: Blood pressure 133/79, heart rate is 98. Temperature is 97.7. She is 5'6 and weighs 93.8 kg. GENERAL APPEARANCE: Appropriate, mildly uncomfortable sitting in the chair. FOCUSED EXAM - BACK: Range of motion is slightly guarded in lateral rotation and extension. Paravertebral muscles are taut but non-spasmodic. No reproduction of spinal axial pain to compression along the lumbar facets of L2, L3 and L4, L5. Tr's point is non-tender bilaterally. FABERs, compression, thigh thrust tests are negative. MUSCULOSKELETAL: Motor is intact, 5/5 bilateral lower extremities. Ambulation and gait are steady. She does not use an assistive device. NEUROLOGICAL: Diffuse polyneuropathy upper and lower extremities. Right SI dermatome pain to right lower extremity to the level of the foot. +1 bilateral patellar and Achilles reflexes. IMPRESSION: Chronic pain syndrome, autoimmune dysfunction. PLAN: I discussed with the patient at this time no further procedures will be ordered. She is under the care of many disciplines at this time and she needs to follow through with their current prescribed treatment. Physical therapy was discussed and she is to call physical therapy to start that process at this time. No medication adjustments today. She was encouraged to follow her vitamin regimen and self care was stressed. We will see her in three months' time unless otherwise indicated and patient agrees with this plan.[facility] [id number] NoteCONSULTATION CONSULTATION DATE: 04/01/2022 This is a 47-year-old female returning to the clinic for a 3-month appointment for chronic lower back pain and bilateral hip pain. Today she reports her pain is 9 out of 10, described as throbbing and achy. During her last appointment on 02/05/2022, she received bilateral trochanteric bursa injections which afforded her 70% relief for three days. She is a diabetic and her sugars have been fluctuating a lot over the last three days. She had a switch in insurance and that interrupted her diabetic medication. Her most recent A1C is 8.2. 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 She feels very flared up today. Activity such as pushing, pulling, sitting, standing, walking, housework and lifting aggravate her pain. She is on Tramadol 100 mg b.i.d., Requip 4 mg q.d., Baclofen, Cymbalta, diclofenac and gabapentin. She does have peripheral neuropathy to bilateral feet and hands. She has had SI joint injections in the past which were beneficial. REVIEW OF SYSTEMS, PAST MEDICAL HISTORY, ALLERGIES AND IMAGES: Have been reviewed and noted in the chart. PHYSICAL EXAM: VITAL SIGNS: Blood pressure 136/85, heart rate is 97, temperature is 98. Height is 5'6 , weighs 94.4 kg. GENERAL APPEARANCE: Pleasant, appropriate, in no acute distress. FOCUSED EXAM: BACK: Range of motion is functional, lateral rotation and flexion/extension. Paravertebral muscles are taut but not spasmodic. Tr's point is tender on left which reproduces the patient's pain symptomatology. Pain does radiate to the left hip and groin. Carroll's, compression, thigh thrust tests are positive which is concordant with left sacroiliitis. MUSCULOSKELETAL: Motor is intact 4 out of 5 bilaterally. She does have diffuse muscle atrophy to her lower extremities. NEUROLOGICAL: Peripheral generalized diabetic neuropathy to upper and lower extremities. DIAGNOSIS: Left sacroiliitis, chronic pain syndrome, osteoarthritis. PLAN: We will discontinue the Tramadol, change it to Monarch 5/325 b.i.d. contingent upon the patient bringing the remainder of her tramadol to the office to be destroyed. We will move forward to authorize for left SI joint infection with decreased depo dose secondary to her diabetes. Nutrition and vitamin importance was stressed as well. The patient is to add magnesium to a vitamin regimen. The patient agrees with the plan of care and would like to proceed and be followed up in the office post-procedure. [facility] Signed and Approved by: KEILY CLEMENTS . 04/08/2022 09:47:00[facility]07-07-2022 Note [facility] Vascular Lower Arterial Plethysmography Procedure Patient Name TIMMY Date of Study 03/31/2022 RISA Cooper Date of 1975 Gender Female Age 47 year(s) Race Room Number Corporate ID [id number] # Patient Acct [id number] # MR # [id number] Operations Officer Vicki Spicer RVT Interpreting Physician Ruddy Mallory DO Referring Referring Physician Vivian Oseguera Nurse Practitioner Procedure Type of Study: Extremities Arteries: Lower Arterial Plethysmography, PVR Lower. Indications for Study:Claudication. Patient Status:Out Patient. Technical Quality:Adequate visualization. Comments:Simultaneous real time imaging utilizing B-Mode, color doppler and spectral waveform analysis was performed on the bilateral lower extremities for arterial examination. Conclusions Summary Mild PAD suggested Left lower extremity Signature Findings: Right Impression: Left Impression: PVR waveforms are normal. PVR waveforms are normal. Doppler waveforms are normal. Doppler waveforms are normal. Ankle pressures are normal with Ankle pressures are mildly abnormal ABIs of 0.96 and 0.94. with ABIs of 0.90 and 0.87. Toe pressures are normal. Toe pressures are normal. Allergies - Allergy:Penicillin(Drug). Velocities are measured in cm/s ; Diameters are measured in cm Pressures + ++--------+-----+----+--------+-----+ ! !!Right ! !Left! ! ! + ++--------+-----+----+--------+-----+ !Location !!Pressure!Ratio! !Pressure!Ratio! + ++--------+-----+----+--------+-----+ !Ankle PT !!128 !0.96 ! !121 !0.9 ! + ++--------+-----+----+--------+-----+ !Ankle DP !!126 !0.94 ! !117 !0.87 ! + ++--------+-----+----+--------+-----+ !Great Toe !!114 !0.85 ! !107 !0.8 ! + ++--------+-----+----+--------+-----+ - Brachial Pressure:Right: 134.Left:128. - MARY:Right: 0.96.Left: 0.9. Plethysmographic Digit Evaluation +---------++--------+-----+ ++--------+-----+ + ! !!Right ! !Left !! ! ! ! +---------++--------+-----+ ++--------+-----+ + !Location !!Pressure!Ratio!PPG Wave Form !!Pressure!Ratio!PPG Wave Form ! +---------++--------+-----+ ++--------+-----+ + !Great Toe!!114 !0.85 ! !!107 !0.8 ! ! +---------++--------+-----+ ++--------+-----+ +[facility] [id number] History of Present illness Narrative* Corrine Guerra RN - 03/03/2021 11:00 AM EDT Patient ordered stress echo test. The patient is unable to walk due to back and leg issues. Talked with ordering physician and changed to Lexiscan nuclear stress test. Patient verbalizes agreement. documented in this [facility] Phone: 1(112) [phone] History of Present illness Narrative* Yamel Guadarrama RN - 01/20/2021 2:54 PM EDT Discharge instructions reviewed with patient. Patient sat up and dressed self. Denied pain out of her ordinary or dizziness. Bandaid to lower back remains CDI. Patient taken out by wheelchair with belongings. * Yamel Guadarrama RN - 01/20/2021 1:36 PM EDT Patient remains supine. Offers no complaints. * Yamel Guadarrama RN - 01/20/2021 12:55 PM EDT Patient taken to post procedure area with belongings and family. Patient remains supine. * Yamel Guadarrama RN - 01/20/2021 12:43 PM EDT Patient taken back to CT. Rolled on bed x 2. Re-scanned. Doctor evaluated. Patient to be recovered for 2 hours. documented in this [facility] Phone: [phone]) 409-586204-27-2021 Hospital Discharge instructions* Instructions* Yamel Guadarrama RN - 01/20/2021 Images from the original note were not included. Lumbar Puncture: What to Expect at Home Your Recovery A lumbar puncture (also called a spinal tap) is a test to check the fluid that surrounds and protects your spinal cord and brain. Your doctor may have done this test to look for an infection. In somecases, a lumbar puncture is done to release pressure from too much fluid or to look for diseases such as multiple sclerosis. You may feel tired, and your back may be sore where the needle went in (the puncture site). You mayhave a mild headache for a day or two. This can happen when some of the spinal fluid is removed. Some people also have trouble sleeping for a day or two. The fluid taken during a lumbar puncture is often sent to a lab for tests. Your doctor or nurse will call you with the test results. This care sheet gives you a general idea about how long it will take for you to recover. But each person recovers at a different pace. Follow the steps below to get better as quickly as possible. How can you care for yourself at home? Activity Your doctor may recommend that you lie down at home the rest of the day after procedure. This may prevent a headache. Rest when you feel tired. Getting enough sleep will help you recover. Ask your doctor when you can drive again. Diet Drink extra fluids after the procedure to help prevent a headache or make it less severe. You may be instructed to drink caffeine to help ease headache after procedure. Medicines If you take blood thinners, such as warfarin (Coumadin), clopidogrel (Plavix), or aspirin, be sure to talk to your doctor. He or she will tell you if and when to start taking those medicines again. Make sure that you understand exactly what your doctor wants you to do. If you have pain, take pain medicines exactly as directed. If the doctor gave you a prescription medicine for pain, take it as prescribed. If you are not taking a prescription pain medicine, ask your doctor if you can take an rsvt-cdf-nfelspr medicine. If you think your pain medicine is making you sick to your stomach: Take your medicine after meals (unless your doctor has told you not to). Ask your doctor for a different pain medicine. If your doctor prescribed antibiotics, take them as directed. Do not stop taking them just because you feel better. You need to take the full course of antibiotics. Follow-up care is a lezama part of your treatment and safety. Be sure to make and go to all appointments, and call your doctor if you are having problems. It's also a good idea to know your test resultsand keep a list of the medicines you take. When should you call for help? Call 911 anytime you think you may need emergency care. For example, call if: You passed out (lost consciousness). Call your doctor now or seek immediate medical care if: You have a new or higher fever and a stiff neck. You have a severe headache. You have any drainage or bleeding from the puncture site. You feel numb or lose strength below the puncture site. Watch closely for changes in your health, and be sure to contact your doctor if: You still have a headache or sore back 2 days after your procedure. Where can you learn more? Go to https://[employer]org and sign in to your [employer] account. Enter P586 in the Search Health Information box to learn more about Lumbar Puncture: What to Expect at Home. If you do not have an account, please click on the Sign Up Now link. [employer]. Care instructions adapted under license by [employer]. This care instruction is for use with your licensed healthcare professional. If you have questions about amedical condition or this instruction, always ask your healthcare professional. [employer] disclaims any warranty or liability for your use of this information. Content Version: 11.0.779214; Current as of: November 14, 2015 * Attachments The following attachments cannot be sent through Care Everywhere. * Myelogram ([place] Islander) documented in this [facility] [employer] Work Phone: 1(856) 274-130703-11-2021 NotePatient Outreach (COVAMN) RISA WARNER ([id number]) 1975 F Date Time Provider Department 12/04/20 [facility] During your visit today, we recorded the following information about you: Allergies As of Date: 12/04/2020 Noted Allergy Reaction PENICILLINS 06/27/2009 2 - Rash Date Reviewed: 12/28/2019 Reviewed by: Johnathan Milner - Fully Assessed Order(s):SARS-COVID VACCINE 1ST DOSE APPT [[id number]] Order #: [id number] FUTURE Prescriptions as of 12/04/2020 Sig: TIZANIDINE 4 MG CAPSULE Take 4 mg by mouth daily at b* DICYCLOMINE 20 MG TABLET Take 20 mg by mouth three elliot* ASPIRIN-CALCIUM CARBONATE 81 * Take 81 mg by mouth. ATORVASTATIN 80 MG TABLET take 1 tablet by mouth at bed* CLOTRIMAZOLE-BETAMETHASONE 1 * APPLY TWICE A DAY NEEDED F* FENOFIBRATE 54 MG TABLET take 1 tablet by mouth once d* INSULIN LISPRO (U-200) 200 UN* Inject 15 Units subcutaneousl* LISINOPRIL 10 MG TABLET Take 10 mg by mouth. LORATADINE 10 MG CAPSULE Take 10 mg by mouth. METOPROLOL SUCCINATE ER 25 MG* Take 25 mg by mouth. MONTELUKAST 10 MG TABLET Take 10 mg by mouth. PEN NEEDLE, DIABETIC 30 GAUGE* 1 Each. MEDICATION, NON-DATABASE Apply to affected area. Homeo* MEDICATION, NON-DATABASE Take 2 tablets by mouth. Misc* ADULTS MULTIVITAMIN ORAL Take 1 tablet by mouth. NEURONTIN 300 MG CAPSULE Take 2 at bedtime, one at Am * LIDODERM 5 % TOPICAL PATCH as necessary VOLTAREN 1 % TOPICAL GEL four times daily FLUTICASONE 250 MCG-SALMETERO* Take one(1) tablet two(2) elliot* B-12 DOTS 500 MCG TABLET Take one(1) tablet daily. GLIPIZIDE 5 MG TABLET Take one(1) tablet three time* ULTRAM 50 MG TABLET Take one (1) or two(2) tablet* BUTALBITAL 50 MG-ACETAMINOPHE* as necessary for pain REQUIP 0.25 MG TABLET Take one(1) tablet daily. LYRICA 75 MG CAPSULE Take one(1) tablet two(2) elliot* BUDEPRION SR 150 MG TABLET, S* Take one(1) tablet two(2) in * PROZAC 20 MG CAPSULE take 4 daily LANTUS SOLOSTAR U-100 INSULIN* 30ml twice daily HYZAAR 100 MG-25 MG TABLET Take one(1) tablet daily. SYNTHROID 50 MCG TABLET Take one(1) tablet daily. ALEVE 220 MG TABLET Take one(1) tablet daily. ALBUTEROL 90 MCG/ACTUATION AE* as necessary for pain Problem List As Of Date 12/04/2020 Noted Resolved Gastroparesis due to secondary diabetes (HCC) [*12/28/2019 Encounter Status:Closed by JUAN FRANCISCO JUSTICE on 12/08/20[facility] Evaluation note* Diagnosis DDD (degenerative disc disease), lumbar Degeneration of lumbar or lumbosacral intervertebral disc documented in this encounter [employer] Phone: evaluation note* Diagnosis Renal stones Calculus of kidney Renal colic documented in this encounter [employer] Phone: evaluation note* Diagnosis Renal stones Calculus of kidney documented in this encounter [employer] Phone: evaluation note* Diagnosis Hepatomegaly documented in this encounter [employer] Phone: evaluation note* Diagnosis Essential hypertension Unspecified essential hypertension Chest discomfort Other chest pain Hyperlipidemia, unspecified hyperlipidemia type Tobacco abuse Tobacco use disorder documented in this encounter [employer] Phone: evaluation note* Diagnosis Abnormal LFTs Other abnormal blood chemistry documented in this encounter [employer] Phone: evaluation note* Diagnosis Other screening mammogram documented in this encounter [employer] Phone: evaluation note* Diagnosis Right upper quadrant abdominal pain Abdominal pain, right upper quadrant documented in this encounter [employer] Phone: [email or web address] note* Diagnosis Right upper quadrant abdominal pain Abdominal pain, right upper quadrant documented in this encounter [employer] Phone: evaluation note* Diagnosis Intermittent claudication (HCC) Peripheral vascular disease, unspecified documented in this encounter [employer] Phone: evaluation note* Diagnosis Colon cancer screening Special screening for malignant neoplasms, colon Fatty liver Other chronic nonalcoholic liver disease documented in this encounter [employer] Phone: evaluation note* Diagnosis Rib pain on left side- Primary Chest pain, unspecified Screening for colon cancer Special screening for malignant neoplasms, colon documented in this encounter [employer] Phone: [email or web address] note* Diagnosis Colon cancer screening Special screening for malignant neoplasms, colon Fatty liver Other chronic nonalcoholic liver disease Screening for colon cancer Special screening for malignant neoplasms, colon documented in this encounter [employer] Phone: evaluation note* Diagnosis Controlled type 2 diabetes mellitus with diabetic polyneuropathy, with long-term current use of insulin (HCC) Screening for colon cancer Special screening for malignant neoplasms, colon documented in this encounter [employer] Work Phone: evaluation noteNo assessment information [facility] Work Phone: Evaluation note* Diagnosis Postural syncope Screening for colon cancer Special screening for malignant neoplasms, colon documented in this encounter [employer] Phone: [email or web address] note* Diagnosis Syncope and collapse Preop cardiovascular exam Pre-operative cardiovascular examination Dizziness Dizziness and giddiness Primary hypertension Unspecified essential hypertension Mixed hyperlipidemia Tobacco abuse counseling Counseling on substance use and abuse Screening for colon cancer Special screening for malignant neoplasms, colon documented in this encounter [employer] Phone: [email or web address] noteNo [facility] Other evalfemjbv note* Diagnosis Lumbar radiculitis Thoracic or lumbosacral neuritis or radiculitis, unspecified Screening for colon cancer Special screening for malignant neoplasms, colon documented in this encounter [employer] Phone: evalrihoft note* Diagnosis Tired Other malaise and fatigue Fatigue, unspecified type LAYNE (obstructive sleep apnea) Obstructive sleep apnea (adult) (pediatric) Screening for colon cancer Special screening for malignant neoplasms, colon documented in this encounter [employer] Phone: [email or web address] note* Diagnosis Screening for colon cancer Special screening for malignant neoplasms, colon documented in this encounter [employer] Phone: evaluation note* Diagnosis Thoracic neuritis Thoracic or lumbosacral neuritis or radiculitis, unspecified documented in this encounter [employer] Work Phone: evaluation note* Diagnosis LAYNE (obstructive sleep apnea) Obstructive sleep apnea (adult) (pediatric) documented in this encounter [employer] Phone: evaluation note* Diagnosis Acute pneumonia- Primary Recurrent syncope Pneumonia of both lower lobes due to infectious organism Controlled type 2 diabetes mellitus with diabetic polyneuropathy, with long-term current use of insulin (HCC) Depression Depressive disorder, not elsewhere classified Diabetic neuropathy (HCC) Type II or unspecified type diabetes mellitus with neurological manifestations, not stated as uncontrolled Dyslipidemia Other and unspecified hyperlipidemia Essential hypertension Unspecified essential hypertension Fatty liver Other chronic nonalcoholic liver disease Fibromyalgia Mylagia and myositis, unspecified Generalized abdominal pain Abdominal pain, generalized Syncope and collapse documented in this encounter [employer] note* Diagnosis Syncope, unspecified syncope type- Primary documented in this encounter [facility] Peak 10History general Narrative - Reported* Type Description Date Medical History Hypertension Medical History type II diabetes Medical History PMDD Medical History hyperlipidemia Surgical History (R) shoulder surgery Surgical History hysterectomy Surgical History bladder surgery Surgical History Pelvic Reconstruction Hospitalization History See Above [employer] Other Hospital Discharge instructions* Attachments The following attachments cannot be sent through Care Everywhere. * Chest Pain: Musculoskeletal ([place]) [facility] Peak 10 Work Phone: Hospital Discharge instructions* Attachments The following attachments cannot be sent through Care Everywhere. * Pneumonia ([place]) * Diabetes: Carb Counting and Eating Well: General Info ([place]) [facility] Peak 10 Summary Purpose Family History No Family History Records Found Relationship Condition Age at Onset Recorded Date/T barry father Diabetes mellitus Unknown Heart disease Unknown Vascular disorder Unknown Chronic obstructive pulmonary disease Unk nown Not Specified Diabetes mellitus Unknown brother Liver problem Unknown Advance Directives No Advanced Directives Records FoundDocuments on File Type Date Recorded Patient Master Esthetician Expl anation Advance Directives and Livin g Will Advance Directives and Livin g Will 09/24/2013 3:29 PM Power of Feed Research Aide Power of Feed Research Aide 09/24/2013 3:29 PM Latest Code Status on File Code Status Date Activated Date Inactivated Comments Full Code 12/21/2017 5:28 AM 12/23/2017 6:35 PM Full Code 04/28/2016 7:55 PM 04/29/2016 5:42 PM Full Code 04/27/2016 8:29 AM 04/27/2016 1:04 PM Full Code 12/31/2015 1:59 PM 04/27/2016 8:29 AM Full Code 12/31/2015 11:18 AM 12/31/2015 1:59 PM Documents on File Type Date Recorded Patient Master Esthetician Expl anation Advance Directives and Livin g Will Advance Directives and Livin g Will 09/24/2013 3:29 PM Power of Feed Research Aide Power of Feed Research Aide 09/24/2013 3:29 PM Latest Code Status on File Code Status Date Activated Date Inactivated Comments Full Code 12/21/2017 5:28 AM 12/23/2017 6:35 PM Full Code 04/28/2016 7:55 PM 04/29/2016 5:42 PM Full Code 04/27/2016 8:29 AM 04/27/2016 1:04 PM Full Code 12/31/2015 1:59 PM 04/27/2016 8:29 AM Full Code 12/31/2015 11:18 AM 12/31/2015 1:59 PM Documents on File Type Date Recorded Patient Master Esthetician Expl anation ACP-Advance Directive ACP-Advance Directive 09/24/2013 3:29 PM ACP-Power of Feed Research Aide ACP-Power of Feed Research Aide 09/24/2013 3:29 PM Documents on File Type Date Recorded Patient Master Esthetician Expl anation ACP-Advance Directive ACP-Advance Directive 09/24/2013 3:29 PM ACP-Power of Feed Research Aide ACP-Power of Feed Research Aide 09/24/2013 3:29 PM Documents on File Type Date Recorded Patient Master Esthetician Expl anation ACP-Advance Directive ACP-Power of Feed Research Aide ACP-Advance Directive 09/24/2013 3:29 PM ACP-Power of Feed Research Aide 09/24/2013 3:29 PM Healthcare Agents on File Name Relationship Healthcare Agent Relationshi p Communication Yoel Warner Spouse Primary Decision Maker Documents on File Type Date Recorded Patient Master Esthetician Expl anation ACP-Advance Directive ACP-Power of Feed Research Aide ACP-Advance Directive 09/24/2013 3:29 PM ACP-Power of Feed Research Aide 09/24/2013 3:29 PM Healthcare Agents on File Name Relationship Healthcare Agent Relationshi p Communication Yoel Warner Spouse Primary Decision Maker Healthcare Agents on File Name Relationship Healthcare Agent Relationshi p Communication Yoel Warner Spouse Primary Decision Maker Healthcare Agents on File Name Relationship Healthcare Agent Relationshi p Communication Yoel Warner Spouse Primary Decision Maker Healthcare Agents on File Name Relationship Healthcare Agent Relationshi p Communication Yoel Warner Spouse Primary Decision Maker Documents on File Type Date Recorded Patient Master Esthetician Expl anation ACP-Power of Feed Research Aide ACP-Advance Directive 09/24/2013 3:29 PM ACP-Power of Feed Research Aide 09/24/2013 3:29 PM Healthcare Agents on File Name Relationship Healthcare Agent Relationshi p Communication Yoel Warner Spouse Primary Decision Maker Documents on File Type Date Recorded Patient Master Esthetician Expl anation ACP-Power of Feed Research Aide ACP-Advance Directive 09/24/2013 3:29 PM ACP-Power of Feed Research Aide 09/24/2013 3:29 PM Healthcare Agents on File Name Relationship Healthcare Agent Relationshi p Communication Yoel Warner Spouse Primary Decision Maker Healthcare Agents on File Name Relationship Healthcare Agent Relationshi p Communication Yoel Warner Spouse Primary Decision Maker Documents on File Type Date Recorded Patient Master Esthetician Expl anation ACP-Advance Directive 09/24/2013 3:29 PM ACP-Power of Feed Research Aide 09/24/2013 3:29 PM Healthcare Agents on File Name Relationship Healthcare Agent Relationshi p Communication Yoel Warner Spouse Primary Decision Maker Healthcare Agents on File Name Relationship Healthcare Agent Relationshi p Communication Yoel Warner Spouse Primary Decision Maker Healthcare Agents on File Name Relationship Healthcare Agent Relationshi p Communication Yoel Warner Spouse Primary Decision Maker Healthcare Agents on File Name Relationship Healthcare Agent Relationshi p Communication Yoel Warner Spouse Primary Decision Maker Healthcare Agents on File Name Relationship Healthcare Agent Relationshi p Communication Yoel Warner Spouse Primary Decision Maker Healthcare Agents on File Name Relationship Healthcare Agent Relationshi p Communication Yoel Warner Spouse Primary Decision Maker Healthcare Agents on File Name Relationship Healthcare Agent Relationshi p Communication Yoel Warner Spouse Primary Decision Maker Healthcare Agents on File Name Relationship Healthcare Agent Relationshi p Communication Yoel Warner Spouse Primary Decision Maker Healthcare Agents on File Name Relationship Healthcare Agent Relationshi p Communication Yoel Warner Spouse Primary Decision Maker Healthcare Agents on File Name Relationship Healthcare Agent Relationshi p Communication Yoel Warner Spouse Primary Decision Maker Healthcare Agents on File Name Relationship Healthcare Agent Relationshi p Communication Yoel Warner Spouse Primary Decision Maker Healthcare Agents on File Name Relationship Healthcare Agent Relationshi p Communication Yoel Warner Spouse Primary Decision Maker Healthcare Agents on File Name Relationship Healthcare Agent Relationshi p Communication Yoel Warner Spouse Primary Decision Maker Healthcare Agents on File Name Relationship Healthcare Agent Relationshi p Communication Yoel Warner Spouse Primary Decision Maker Documents on File Type Date Recorded Patient Master Esthetician Expl anation ACP-Advance Directive 09/24/2013 3:29 PM ACP-Power of Feed Research Aide 09/24/2013 3:29 PM Healthcare Agents on File Name Relationship Healthcare Agent Relationshi p Communication Yoel Warner Spouse Primary Decision Maker Healthcare Agents on File Name Relationship Healthcare Agent Relationshi p Communication Yoel Warner Spouse Primary Decision Maker Advance Directive Response Recorded Date/ Time Advance Directives No December 08 021 2:41pm Healthcare Agents on File Name Relationship Healthcare Agent Relationshi p Communication Yoel Warner Spouse Primary Decision Maker Healthcare Agents on File Name Relationship Healthcare Agent Relationshi p Communication Yoel Warner Spouse Primary Decision Maker Healthcare Agents on File Name Relationship Healthcare Agent Relationshi p Communication Yoel Warner Spouse Primary Decision Maker [phone] (Home) Healthcare Agents on File Name Relationship Healthcare Agent Relationshi p Communication Yoel Warner Spouse Primary Decision Maker [phone] (Home) Healthcare Agents on File Name Relationship Healthcare Agent Relationshi p Communication Yoel Warner Spouse Primary Decision Maker [phone] (Home) Latest Code Status on File Code Status Date Activated Date Inactivated Comments Full Code 12/21/2017 5:28 AM 12/23/2017 6:35 PM Code Status History Code Status Date Activated Date Inactivated Comments Full Code 04/28/2016 7:55 PM 04/29/2016 5:42 PM Full Code 04/27/2016 8:29 AM 04/27/2016 1:04 PM Full Code 12/31/2015 1:59 PM 04/27/2016 8:29 AM Full Code 12/31/2015 11:18 AM 12/31/2015 1:59 PM Healthcare Agents on File Name Relationship Healthcare Agent Relationshi p Communication Yoel Warner Spouse Primary Decision Maker [phone] (Home) Healthcare Agents on File Name Relationship Healthcare Agent Relationshi p Communication Yoel Warner Spouse Primary Decision Maker [phone] (Home) Documents on File Type Date Recorded Patient Master Esthetician Expl anation ACP-Advance Directive 09/24/2013 3:29 PM ACP-Power of Feed Research Aide 09/24/2013 3:29 PM ACP-Advance Directive 06/13/2023 12:08 PM Health Care Power of Feed Research Aide Latest Code Status on File Code Status Date Activated Date Inactivated Comments Full Code 06/11/2023 12:44 AM Code Status History Code Status Date Activated Date Inactivated Comments Full Code 12/21/2017 5:28 AM 12/23/2017 6:35 PM Full Code 04/28/2016 7:55 PM 04/29/2016 5:42 PM Full Code 04/27/2016 8:29 AM 04/27/2016 1:04 PM Full Code 12/31/2015 1:59 PM 04/27/2016 8:29 AM Healthcare Agents on File Name Relationship Healthcare Agent Relationship Communication Yoel Warner Spouse Primary Decision Maker Iliana Green Child Secondary Decision Maker Latest Code Status on File Code Status Date Activated Date Inactivated Comments Full Code 06/11/2023 12:44 AM 06/14/2023 3:29 PM Healthcare Agents on File Name Relationship Healthcare Agent Relationship Communication Yoel Warner Spouse Primary Decision Maker Iliana Green Child Secondary Decision Maker Assessments Diagnosis Diabetes mellitus type 2 with complications, uncontrolled (HCC) Type II or unspecified type diabetes mellitus with unspecified complication, uncontrolled Diagnosis Abdominal pain, unspecified abdominal location Diagnosis Thyromegaly Goiter, unspecified Diagnosis Generalized abdominal pain Abdominal pain, generalized Diagnosis Generalized abdominal pain Abdominal pain, generalized Diagnosis Renal stones Calculus of kidney Diagnosis Traumatic injury of head, initial encounter Scalp tenderness Headache Diagnosis Preoperative testing Preoperative examination, unspecified Diagnosis Diabetes mellitus type 2 with complications, uncontrolled (HCC) Type II or unspecified type diabetes mellitus with unspecified complication, uncontrolled Reason for Referral Status Reason Specialty Diagnoses / Procedures Referre d By Contact Referred To Contact Open Radiology Diagnoses Abdominal pain, unspecified abdominal location Procedures CT ABDOMEN PELVIS W IV CONTRAST Additional Contrast? Oral Curtis Jean MD [address] [place] [address] Status Reason Specialty Diagnoses / Procedures Referred By Contact Referred To Contact Authorized Radiology Diagnoses Generalized abdominal pain Procedures NM GASTRIC EMPTYING HC NM GASTRIC EMPTYING STUDY Curtis Jean MD [address] [place] [address] [place] Status Reason Specialty Diagnoses / Procedures Referre d By Contact Referred To Contact Open Radiology Diagnoses Generalized abdominal pain Procedures NM GASTRIC EMPTYING Vivian Oseguera SET UP MECHANIC - COMMERCIAL ENGINEER [address] [id number] Status Reason Specialty Diagnoses / Procedures Referre d By Contact Referred To Contact Closed Radiology Diagnoses Traumatic injury of head, initial encounter Scalp tenderness S09.90XA (ICD-10-CM) - Traumatic injury of head, initial encounter R51.9 (ICD-10-CM) - Scalp tenderness Procedures CT HEAD WO CONTRAST Vivian Oseguera SET UP MECHANIC - COMMERCIAL ENGINEER [address] [place] [address] Status Reason Specialty Diagnoses / Procedures Re ferred By Contact Referred To Contact Authorized Cardiology Diagnoses Essential hypertension Chest discomfort Hyperlipidemia, unspecified hyperlipidemia type Tobacco abuse Procedures Echo stress test HC NM SEST. REST STRESS Nathan Estrella MD [address] [place] [address] [facility] [place] [address] Status Reason Specialty Diagnoses / Procedures Referre d By Contact Referred To Contact Closed Radiology Diagnoses Other screening mammogram Procedures ALEJANDRO MARISOL DIGITAL SCREEN BILATERAL Vivian Oseguera SET UP MECHANIC - COMMERCIAL ENGINEER [address] [place] [address] Status Reason Specialty Diagnoses / Procedures Referred By Contact Referred To Contact Not Required - Recondo Radiology Diagnoses Right upper quadrant abdominal pain Procedures US GALLBLADDER RUQ HC US ABDOMINAL LIMITED Flip Dodson SET UP MECHANIC - COMMERCIAL ENGINEER [address] [place] [address] Specialty Diagnoses / Procedures Referred By Fernandez lau Referred To Contact Radiology Diagnoses Intermittent claudication (HCC) Procedures VL LOWER EXTREMITY ARTERIAL SEGMENTAL PRESSURES W PPG Vivian Oseguera SET UP MECHANIC - COMMERCIAL ENGINEER [address] [place] [address] Referral ID Status Reason Start Date Expiration Date Visits Re quested Visits Authorized [id number] Closed 03/24/2022 03/24/2023 1 1 Specialty Diagnoses / Procedures Referred By Contac t Referred To Contact Radiology Diagnoses Colon cancer screening Fatty liver [place] [address] [place] [id number] Referral ID Status Reason Start Date Expiration Date Visits Re quested Visits Authorized [id number] Closed 07/26/2022 07/26/2023 1 1 Specialty Diagnoses / Procedures Referred By Contac t Referred To Contact Diagnoses Postural syncope R55 (ICD-10-CM) - Postural syncope Procedures Tilt Table Test Tilt Table Test MN CARDIOVASCULAR FUNCTION EVAL W/TILT TABLE W/MNTR 94090 - [place] CARDIOVASCULAR FUNCTION EVAL W/TILT TABLE W/MNTR Vivian Oseguera W, SET UP MECHANIC - COMMERCIAL ENGINEER [address] [place] [address] Referral ID Status Reason Start Date Expiration Date Visits Re quested Visits Authorized [id number] Closed 09/23/2022 09/23/2023 1 1 Specialty Diagnoses / Procedures Referred By Contac t Referred To Contact Diagnoses Syncope and collapse Preop cardiovascular exam Dizziness Primary hypertension Mixed hyperlipidemia Tobacco abuse counseling Procedures Continuous cardiac monitoring, >2 up to 14 days Nathan Ardon MD [address] [place] [phone] Referral ID Status Reason Start Date Expiration Date V isits Requested Visits Authorized [id number] Pending Review 10/08/2022 09/28/2023 1 1 Specialty Diagnoses / Procedures Referred By Contac t Referred To Contact Radiology Diagnoses Lumbar radiculitis Procedures MRI LUMBAR SPINE WO CONTRAST Keily Clements, SET UP MECHANIC - PAWN SHOP KEEPER [address] [place] [address] Referral ID Status Reason Start Date Expiration Date Visits Re quested Visits Authorized [id number] Closed 10/25/2022 12/09/2022 1 1 Specialty Diagnoses / Procedures Referred By Contac t Referred To Contact Sleep Center Diagnoses Tired Fatigue, unspecified type LAYNE (obstructive sleep apnea) Procedures Home sleep study Nathan Ardon MD [address] [place] [address] [place] [address] Referral ID Status Reason Start Date Expiration Date Visits Re quested Visits Authorized [id number] Closed 11/09/2022 11/15/2023 1 1 Specialty Diagnoses / Procedures Referred By Contac t Referred To Contact Radiology Diagnoses Thoracic neuritis M54.14 (ICD-10-CM) - Thoracic neuritis Procedures MRI THORACIC SPINE WO CONTRAST CHG MRI SPINAL CANAL THORACIC W/O CONTRAST MATRL [id number] - CHG MRI SPINAL CANAL THORACIC W/O CONTRAST MATRL Terry Mcghee MD [address] [facility], [address] [place] [address] Referral ID Status Reason Start Date Expiration Date Visits Re quested Visits Authorized [id number] Closed 12/01/2022 01/15/2023 1 1 Specialty Diagnoses / Procedures Referred By Contac t Referred To Contact Sleep Center Diagnoses LAYNE (obstructive sleep apnea) Procedures Sleep study with PAP titration Nathan Ardon MD [address] [place] [address] [place] [address] Referral ID Status Reason Start Date Expiration Date Visits Re quested Visits Authorized [id number] Closed 01/02/2023 01/02/2024 1 1 Chief Complaint and Reason for Visit Chief Complaint Failed Implant Chief Complaint Failed Implant Failed Implant Additional Source Comments INFORMATION SOURCE (unrecogn ized section and content) DATE CREATED AUTHOR 03/15/2018 [facility] DATE CREATED AUTHOR AUTHOR'S ORGANIZ ATION 10/24/2021 [facility] DATE CREATED AUTHOR AUTHOR'S ORGANIZ ATION 11/05/[address] [facility] DATE CREATED AUTHOR AUTHOR'S ORGANIZ ATION 10/30/2022 [facility] DATE CREATED AUTHOR AUTHOR'S ORGANIZ ATION 02/09/2023 [facility] DATE CREATED AUTHOR AUTHOR'S ORGANIZ ATION 08/25/2023 [facility] DATE CREATED AUTHOR AUTHOR'S ORGANIZ ATION 09/08/2023 [facility] Reason for Visit (unrecogniz ed section and content) Status Reason Specialty Diagnoses / Procedures Referre d By Contact Referred To Contact Closed Radiology Diagnoses Generalized abdominal pain Procedures HC CT ABD/PEL W CONT Curtis Jean MD [address] [place] [address] [facility] [address] Scan [address] [place] [address] Status Reason Specialty Diagnoses / Procedures Referre d By Contact Referred To Contact Open Radiology Diagnoses Thyromegaly Procedures US HEAD NECK SOFT TISSUE THYROID US THYROID HCHG US,HEAD/NECK TISSUES,B-SCAN/REAL TIME Hever Olivera PA [address] [place] [address] Status Reason Specialty Diagnoses / Procedures Referred By Contact Referred To Contact Authorized Radiology Diagnoses Functional dyspepsia Procedures HC NM GASTRIC EMPTYING STUDY Curtis Jean MD [address] [place] [address] [place], [place] Status Reason Specialty Diagnoses / Procedures Referre d By Contact Referred To Contact Closed Radiology Diagnoses Generalized abdominal pain Procedures NM GASTRIC EMPTYING HC NM GASTRIC EMPTYING STUDY Curtis Jean MD [address] [place] [address] [place], [place] Status Reason Specialty Diagnoses / Procedures Referre d By Contact Referred To Contact Closed Radiology Diagnoses Traumatic injury of head, initial encounter Scalp tenderness S09.90XA (ICD-10-CM) - Traumatic injury of head, initial encounter R51.9 (ICD-10-CM) - Scalp tenderness Procedures CT HEAD WO CONTRAST Canelo, Vivian W, SET UP MECHANIC - COMMERCIAL ENGINEER [address] [place] [address] Status Reason Specialty Diagnoses / Procedures Referre d By Contact Referred To Contact Closed Radiology Diagnoses DDD (degenerative disc disease), lumbar Procedures CT LUMBAR SPINE W CONTRAST FL MYELOGRAM LUMBOSACRAL S&I IR MYELOGRAM LUMBOSACRAL IR MYELOGRAM LUMBOSACRAL Corey Cleveland MD [address] [place] [address] Status Reason Specialty Diagnoses / Procedures Re ferred By Contact Referred To Contact Authorized Cardiology Diagnoses Essential hypertension Chest discomfort Hyperlipidemia, unspecified hyperlipidemia type Tobacco abuse Procedures Echo stress test HC NM SEST. REST STRESS MULT Nathan Ardon MD [address] [place], [place] [phone] Status Reason Specialty Diagnoses / Procedures Referred By Contact Referred To Contact Pending Review Stress Lab Diagnoses Essential (primary) hypertension Other chest pain Hyperlipidemia, unspecified Tobacco use Procedures CHG MYOCARDIAL SPECT MULTIPLE STUDIES Nathan Ardon MD [address] [place] [phone] [facility] Stress [facility] [address] [place] [address] Status Reason Specialty Diagnoses / Procedures Referre d By Contact Referred To Contact Closed Radiology Diagnoses Other screening mammogram Procedures ALEJANDRO MARISOL DIGITAL SCREEN BILATERAL Vivian Oseguera APRN - COMMERCIAL ENGINEER [address] [place] [address] Status Reason Specialty Diagnoses / Procedures Referred By Contact Referred To Contact Not Required - Recondo Radiology Diagnoses Right upper quadrant abdominal pain Procedures US GALLBLADDER RUQ HC US ABDOMINAL LIMITED Flip Dodson APRN - COMMERCIAL ENGINEER [address] [place] [address] Specialty Diagnoses / Procedures Referred By Contac t Referred To Contact Radiology Diagnoses Intermittent claudication (HCC) Procedures VL LOWER EXTREMITY ARTERIAL SEGMENTAL PRESSURES W PPG Vivian Oseguera APRN - COMMERCIAL ENGINEER [address] [place] [address] Referral ID Status Reason Start Date Expiration Date Visits Re quested Visits Authorized [id number] Closed 03/24/2022 03/24/2023 1 1 Reason Comments Rib Pain (injury) Left sided, ongoing since Tuesday, denies injury, hurts to take a deep breath Specialty Diagnoses / Procedures Referred By Contac t Referred To Contact Radiology Diagnoses Colon cancer screening Fatty liver Procedures US LIVER Tari De La Torre MD [address] [place] [address] [place] [address] Referral ID Status Reason Start Date Expiration Date Visits Re quested Visits Authorized [id number] Closed 07/26/2022 07/26/2023 1 1 Specialty Diagnoses / Procedures Referred By Contac t Referred To Contact Diagnoses Postural syncope R55 (ICD-10-CM) - Postural syncope Procedures Tilt Table Test Tilt Table Test MN CARDIOVASCULAR FUNCTION EVAL W/TILT TABLE W/MNTR 34155 - [place] CARDIOVASCULAR FUNCTION EVAL W/TILT TABLE W/MNTR Vivian Oseguera W, SET UP MECHANIC - COMMERCIAL ENGINEER [address] [place] [address] Referral ID Status Reason Start Date Expiration Date Visits Re quested Visits Authorized [id number] Closed 09/23/2022 09/23/2023 1 1 Specialty Diagnoses / Procedures Referred By Contac t Referred To Contact Diagnoses Syncope and collapse Preop cardiovascular exam Dizziness Primary hypertension Mixed hyperlipidemia Tobacco abuse counseling Procedures Continuous cardiac monitoring, >2 up to 14 days Nathan Ardon MD [address] [place] [phone] Referral ID Status Reason Start Date Expiration Date V isits Requested Visits Authorized [id number] Pending Review 10/08/2022 09/28/2023 1 1 Specialty Diagnoses / Procedures Referred By Contac t Referred To Contact Radiology Diagnoses Lumbar radiculitis Procedures MRI LUMBAR SPINE WO CONTRAST Keily Clements, SET UP MECHANIC - PAWN SHOP KEEPER [address] [place] [address] Referral ID Status Reason Start Date Expiration Date Visits Re quested Visits Authorized [id number] Closed 10/25/2022 12/09/2022 1 1 Specialty Diagnoses / Procedures Referred By Contac t Referred To Contact Sleep Center Diagnoses Tired Fatigue, unspecified type LAYNE (obstructive sleep apnea) Procedures Home sleep study Nathan Ardon MD [address] [place] [address] [place] [address] Referral ID Status Reason Start Date Expiration Date Visits Re quested Visits Authorized [id number] Closed 11/09/2022 11/15/2023 1 1 Specialty Diagnoses / Procedures Referred By Contac t Referred To Contact Diagnoses Screening for colon cancer SCREENING Procedures MN COLON CA SCRN NOT HI RSK IND MN COLONOSCOPY FLX DX W/COLLJ SPEC WHEN PFRMD MN COLONOSCOPY W/BIOPSY SINGLE/MULTIPLE MN COLSC FLX W/RMVL OF TUMOR POLYP LESION SNARE TQ COLORECTAL CANCER SCREENING, NOT HIGH RISK Tari De La Torre MD [address] [facility] [place] [address] [place] [address] [facility] [id number] [place] [address] Referral ID Status Reason Start Date Expiration Date Visits Re quested Visits Authorized [id number] 1 1 Specialty Diagnoses / Procedures Referred By Contac t Referred To Contact Radiology Diagnoses Thoracic neuritis M54.14 (ICD-10-CM) - Thoracic neuritis Procedures MRI THORACIC SPINE WO CONTRAST CHG MRI SPINAL CANAL THORACIC W/O CONTRAST MATRL [id number] - CHG MRI SPINAL CANAL THORACIC W/O CONTRAST MATRL Terry Mcghee MD [address] [facility], [address] [place] [address] Referral ID Status Reason Start Date Expiration Date Visits Re quested Visits Authorized [id number] Closed 12/01/2022 01/15/2023 1 1 Specialty Diagnoses / Procedures Referred By Contac t Referred To Contact Sleep Center Diagnoses LAYNE (obstructive sleep apnea) Procedures Sleep study with PAP titration Nathan Ardon MD [address] [place] [address] [place] [address] Referral ID Status Reason Start Date Expiration Date Visits Re quested Visits Authorized [id number] Closed 01/02/2023 01/02/2024 1 1 Reason Comments Loss of Consciousness X3 since 1900 with each episode lasting approx 45 seconds, pt reports several other LOCs episode throughout last week. Witnesses LOC by spouse, reports pt was sitting in chair during each episode, denies pt hitting head tonight. Pt reports feeling ill with bronchitis for last 2 weeks with recent completion of atb. Pt reports dizziness, vertigo, palpations and cough prior to each LOC. Pt states history of LOC and diagnosed with positional vertigo. Pt type 2 diabetic with last reported FSBS 203. Specialty Diagnoses / Procedures Referred By Contjared t Referred To Contact Diagnoses Pneumonia of both lower lobes due to infectious organism Recurrent syncope Acute pneumonia Emanuel Danielle MD [address] [place] [address] [facility] [address] [place] [address] Referral ID Status Reason Start Date Expiration Date Visits Re quested Visits Authorized [id number] 1 1 Reason Comments Loss of Consciousness Patient was recent ly discharged, patient today had syncope episode. Care Teams (unrecognized sec tion and content) Gel Coater Relationship Specialty Start Date End Date Might, Vivian Combs APRN [place] PCP - General Family Nurse Practitioner 05/10/18 Gel Coater Relationship Specialty Start Date End Date MightVivian APRN - CNP PCP - General Family Nurse Practitioner 05/10/18 Gel Coater Relationship Specialty Start Date End Date MightVivian APRN - CNP PCP - General Family Nurse Practitioner 05/10/18 Gel Coater Relationship Specialty Start Date End Date MightVivian APRN [place] PCP - General Family Nurse Practitioner 05/10/18 Gel Coater Relationship Specialty Start Date End Date MightVivian APRN - CNP PCP - General Family Nurse Practitioner 05/10/18 Gel Coater Relationship Specialty Start Date End Date MightVivian APRN - CNP PCP - General Family Nurse Practitioner 05/10/18 Gel Coater Relationship Specialty Start Date End Date Might, Vivian Combs [facility] PCP - General Family Nurse Practitioner 05/10/18 Gel Coater Relationship Specialty Start Date End Date Might, Vivian Combs [facility] PCP - General Family Nurse Practitioner 05/10/18 Gel Coater Relationship Specialty Start Date End Date Might, Vivian Combs [facility] PCP - General Family Nurse Practitioner 05/10/18 Gel Coater Relationship Specialty Start Date End Date Might, Vivian Combs [facility] PCP - General Family Nurse Practitioner 05/10/18 Gel Coater Relationship Specialty Start Date End Date Might, Vivian Combs [facility] PCP - General Family Nurse Practitioner 05/10/18 Gel Coater Relationship Specialty Start Date End Date Might, Vivian Combs [facility] PCP - General Family Nurse Practitioner 05/10/18 Gel Coater Relationship Specialty Start Date End Date Might, Vivian Combs [facility] PCP - General Family Nurse Practitioner 05/10/18 Gel Coater Relationship Specialty Start Date End Date Might, Vivian Combs [facility] PCP - General Family Nurse Practitioner 05/10/18 Gel Coater Relationship Specialty Start Date End Date Might, Vivian Combs [facility] PCP - General Family Nurse Practitioner 05/10/18 Gel Coater Relationship Specialty Start Date End Date Might, Vivian Combs [facility] PCP - General Family Nurse Practitioner 05/10/18 Gel Coater Relationship Specialty Start Date End Date Might, Vivian Combs [facility] PCP - General Family Nurse Practitioner 05/10/18 Gel Coater Relationship Specialty Start Date End Date [facility] - General Family Nurse Practitioner 05/10/18 Team Status: Inactive Member Role Status Dates NON STAFF Primary Care Provider Active Shiraz Sherman MD Attending Provider Active Team Status: Active Member Role Status Dates NON STAFF Primary Care Provider Active Gel Coater Relationship Specialty Start Date End Date Might, Vivian Combs [facility] PCP - General Family Nurse Practitioner 05/10/18 Gel Coater Relationship Specialty Start Date End Date Might, [facility] - General Family Nurse Practitioner 05/10/18 Gel Coater Relationship Specialty Start Date End Date Might, [facility] - General Family Nurse Practitioner 05/10/18 Gel Coater Relationship Specialty Start Date End Date Might, [facility] - General Family Nurse Practitioner 05/10/18 Gel Coater Relationship Specialty Start Date End Date Might, Vivian Combs [facility] PCP - General Family Nurse Practitioner 05/10/18 Gel Coater Relationship Specialty Start Date End Date Might, Vivian Combs [facility] PCP - General Family Nurse Practitioner 05/10/18 Gel Coater Relationship Specialty Start Date End Date Might, Vivian Combs APRN [facility] PCP - General Family Nurse Practitioner 05/10/18 Ordered Prescriptions (unrec ognized section and content) Prescription Sig Dispensed Refills Start Date End Da te cyclobenzaprine (FLEXERIL) 10 MG tablet Take 1 tablet by mouth nightly as needed for Muscle spasms 10 tablet 0 08/06/2022 08/16/2022 Prescription Sig Dispensed Refills Start Date End Da te predniSONE (DELTASONE) 10 MG tablet 4 tabs daily for 3 days, 3 tabs daily for 3 days, 2 tabs daily for 3 days, 1 tab daily for 3 days 30 tablet 0 06/14/2023 levoFLOXacin (LEVAQUIN) 750 MG tablet Take 1 tablet by mouth daily for 7 days 7 tablet 0 06/14/2023 06/21/2023 guaiFENesin (MUCINEX) 600 MG extended release tablet Take 1 tablet by mouth 2 times daily for 7 days 14 tablet 0 06/14/2023 06/21/2023 Scheduled Active and Recently Administ ered Medications (unrecognized section and content) Medication Order 08/04/2022 08/05/2022 08/06/2022 HYDROcodone-acetaminophen (NORCO) 5-325 MG per tablet 1 tablet (COMPLETED) 1 tablet, Oral, ONCE, 1 dose, On Tue08/06/22 at 1715 1715 (Given - Provid er: Mario Alberto Reeder RN) morphine injection 4 mg (COMPLETED) 4 mg, IntraVENous, ONCE, 1 dose, On Tue08/06/22 at 1430 1441 (Given - Provid er: Mario Alberto Reeder RN) Continuous Medication Order 12/06/2022 12/07/2022 12/08/2022 lactated ringers IV soln infusion IntraVENous, at 100 mL/hr, CONTINUOUS, Starting on Tue12/08/22 at 1230, Pre-op (day of surgery) 1236 (New Bag - Prov ider: Swapna France, RN)1427 (Stopped - Provider: Makayla Ji, BREANNA) Scheduled Medication Order 06/12/2023 06/13/2023 06/14/2023 aspirin EC tablet 81 mg 81 mg, Oral, DAILY, First dose on 06/11/23 at 0900, Until Discontinued 0824 (Given - Provider: Makayla Leon, BREANNA) 0834 (Given - Provider: Cookie Mcrae RN) 0824 (Given - Provider: Yuliet Galaviz RN) atorvastatin (LIPITOR) tablet 80 mg 80 mg, Oral, NIGHTLY, First dose on 06/11/23 at 0100, Until Discontinued 2015 (Given - Provider: Ramya Nam RN) 2104 (Given - Provider: Cheyenne Poon RN) 2099 (Due) azithromycin (ZITHROMAX) tablet 500 mg (COMPLETED)(Linked Group 1) 500 mg, Oral, EVERY 24 HOURS, 3 doses, First dose on Tue06/11/23 at 2300, Last dose on Tue06/13/23 at 2300, Antimicrobial Indications: Pneumonia (CAP), CAP duration of therapy: Other, Other CAP Duration: 3 days 0007 (Given - Provider: Laurence Weathers RN)231 (Given - Provider: Ramya Nam RN) 234 (Given - Provider: Shira Dobbins RN) cefTRIAXone (ROCEPHIN) 1,000 mg in sodium chloride 0.9 % 50 mL IVPB (mini-bag)(Linked Group 1) 1,000 mg, IntraVENous, EVERY 24 HOURS, 5 doses, First dose on 06/11/23 at 2300, Last dose on Tue06/15/23 at 2300, Antimicrobial Indications: Pneumonia (CAP), CAP duration of therapy: 5 days 0008 (New Bag - Provider: Laurence Weathers RN)0038 (Stopped - Provider: Laurence Weathers RN)2314 (New Bag - Provider: Ramya Nam RN)2351 (Stopped - Provider: Oren Washburn RN) 2340 (New Bag - Provider: Shira Dobbins RN) 0044 (Stopped - Provider: Shira Dobbins RN)230 (Due) cetirizine (ZYRTEC) tablet 10 mg 10 mg, Oral, DAILY, First dose (after last modification) on 06/11/23 at 0230, Until Discontinued, Substituted for Levocetirizine (XYZAL). 0824 (Given - Provider: Makayla Leon RN) 0834 (Given - Provider: Cookie Mcrae RN) 0824 (Given - Provider: Yuliet Galaviz RN) DULoxetine (CYMBALTA) extended release capsule 60 mg 60 mg, Oral, NIGHTLY, First dose on 06/11/23 at 0100, Until Discontinued, Do not crush or break. May add contents of capsule to apple juice or apple sauce, but not chocolate. 2015 (Given - Provider: Ramya Nam RN) 2104 (Given - Provider: Cheyenne Poon, BREANNA) 2099 (Due) empagliflozin (JARDIANCE) tablet 10 mg 10 mg, Oral, DAILY, First dose on 06/11/23 at 0900, Until Discontinued, Indication of Use: Heart Failure (preserved EF), Note: Discontinuation of SGLT2 inhibitor therapy 3 days prior to surgery or major procedures is recommended given the risk for euglycemic diabetic ketoacidosis. 0824 (Given - Provider: Makayla Leon RN) 0834 (Given - Provider: Cookie Mcrae RN) 08 (Given - Provider: Yuliet Galaviz RN) enoxaparin (LOVENOX) injection 40 mg 40 mg, SubCUTAneous, DAILY, First dose on 06/11/23 at 0900, Until Discontinued, Indication of Use: Prophylaxis-DVT/PE 0825 (Given - Provider: Makayla Leon RN) 0835 (Given - Provider: Cookie Mcrae RN) 08 (Given - Provider: Yuliet Galaviz RN) famotidine (PEPCID) tablet 20 mg 20 mg, Oral, 2 TIMES DAILY, First dose on 06/11/23 at 0100, Until Discontinued 0824 (Given - Provider: Makayla Leon RN)2015 (Given - Provider: Ramya Nam RN) 0834 (Given - Provider: Cookie Mcrae RN)2104 (Given - Provider: Cheyenne Poon, BREANNA) 823 (Given - Provider: Yuliet Galaviz RN)2100 (Due) fenofibrate (TRIGLIDE) tablet 160 mg 160 mg, Oral, DAILY, First dose (after last modification) on 06/11/23 at 0230, Until Discontinued, Substituted for Fenofibrate (Non-Formulary Dose). 0824 (Given - Provider: Makayla Leon RN) 0834 (Given - Provider: Cookie Mcrae RN) 08 (Given - Provider: Yuliet Galaviz RN) fluticasone (FLONASE) 50 MCG/ACT nasal spray 2 spray 2 spray, Each Nostril, DAILY, First dose on 06/11/23 at 0900, Until Discontinued 0828 (Given - Provider: Makayla Leon RN) 0835 (Given - Provider: Cookie Mcrae RN) 0831 (Given - Provider: Yuliet Galaviz, BREANNA) furosemide (LASIX) tablet 20 mg 20 mg, Oral, DAILY, First dose on 06/11/23 at 0900, Until Discontinued 0824 (Given - Provider: Makayla Leon RN) 0834 (Given - Provider: Cookie Mcrae RN) 0824 (Given - Provider: Yuliet Galaviz RN) gabapentin (NEURONTIN) capsule 600 mg 600 mg, Oral, 3 TIMES DAILY, First dose (after last modification) on 06/11/23 at 0230, Until Discontinued 0824 (Given - Provider: Makayla Leon RN)1427 (Given - Provider: Makayla Leon RN)2015 (Given - Provider: Ramya Nam RN) 0834 (Given - Provider: Cookie Mcrae RN)1349 (Given - Provider: Cookie Mcrae, BREANNA)2043 (Given - Provider: Cheyenne Poon, BREANNA) 0824 (Given - Provider: Yuliet Galaviz, BREANNA)1400 (Due)2100 (Due) guaiFENesin (MUCINEX) extended release tablet 600 mg 600 mg, Oral, 2 TIMES DAILY, First dose on 06/11/23 at 0100, Until Discontinued, Do not crush or break. 0824 (Given - Provider: Makayla Leon RN)2015 (Given - Provider: Ramya Nam RN) 0833 (Given - Provider: Cookie Mcrae, BREANNA)2105 (Given - Provider: Cheyenne Poon, BREANNA) 0824 (Given - Provider: Yuliet Galaviz RN)2100 (Due) ibuprofen (ADVIL;MOTRIN) tablet 400 mg 400 mg, Oral, 3 TIMES DAILY WITH MEALS, First dose on 06/11/23 at 0800, Until Discontinued, Do not crush or break. Substituted for Diclofenac (VOLTAREN). 0823 (Given - Provider: Makayla Leon RN)1200 (Given - Provider: Makayla Leon RN)1622 (Given - Provider: Makayla Leon RN) 0834 (Given - Provider: Cookie Mcrae RN)1210 (Given - Provider: Cookie Mcrae RN)1717 (Given - Provider: Cookie Mcrae RN) 0824 (Given - Provider: Yuliet Galaviz RN)1131 (Not Given - Provider: Yuliet Galaviz RN - Reason: Patient/family refused)1700 (Due) insulin lispro (HUMALOG) injection vial 0-16 Units 0-16 Units, SubCUTAneous, 3 TIMES DAILY WITH MEALS, First dose on 06/11/23 at 1700, Until Discontinued, High Dose Corrective Algorithm Glucose: Dose: 70-199 No Insulin 200-249 4 Units 250-299 8 Units 300-349 12 Units Over 349 16 Units and notify physician 0826 (Given - Provider: Makayla Leon RN)1201 (Given - Provider: Makayla Leon RN)1657 (Not Given - Provider: Makayla Leon RN - Reason: Contraindicated - Comment: [id number]) 0812 (Not Given - Provider: Cookie Mcrae RN - Reason: Order parameters not met - Comment: 180)1205 (Not Given - Provider: Cookie Mcrae RN - Reason: Order parameters not met - Comment: [phone] (Given - Provider: Cookie Mcrae RN) 0825 (Not Given - Provider: Yuliet Galaviz RN - Reason: Order parameters not met)1132 (Given - Provider: Yuliet Galaviz RN)1700 (Due) insulin lispro (HUMALOG) injection vial 0-4 Units 0-4 Units, SubCUTAneous, NIGHTLY, First dose on 06/11/23 at 2100, Until Discontinued, If continuous tube feedings/TPN/NPO, give correction dose based on result, no reduction in dose. If eating or bolus tube feeding: Corrective Bedtime Algorithm Glucose: Dose: 70-299 No Insulin 300-349 4 Units Over 349 4 Units and notify physician 2019 (Not Given - Provider: Ramya Nam RN - Reason: Medication not available - Comment: BS [phone]) 2056 (Not Given - Provider: Cheyenne Poon RN - Reason: Order parameters not met - Comment: FSBS 207) 2100 (Due) insulin lispro (HUMALOG) injection vial 15 Units 15 Units, SubCUTAneous, 3 TIMES DAILY WITH MEALS, First dose on 06/11/23 at 1700, Until Discontinued, Substituted for Insulin lispro U-200 (HumaLOG KwikPen). 0825 (Given - Provider: Makayla Leon RN)1201 (Given - Provider: Makayla Leon RN)1655 (Given - Provider: Makayla Leon RN) 0835 (Given - Provider: Cookie Mcrae RN)1210 (Given - Provider: Cookie Mcrae RN)1717 (Given - Provider: Cookie Mcrae RN) 0825 (Given - Provider: Yuliet Galaviz, BREANNA)1131 (Given - Provider: Yuliet Galaviz, BREANNA)1700 (Due) insulin regular human (humuLIN R U-500 KWIKPEN) 500 UNIT/ML concentrated injection pen 100 Units (Patient Supplied) 100 Units, SubCUTAneous, 2 TIMES DAILY WITH MEALS, First dose on 06/11/23 at 1700, Until Discontinued, This is highly concentrated insulin. Patient may use home supply. 0828 (Given - Provider: Makayla Leon RN)1655 (Given - Provider: Makayla Leon RN) 0858 (Given - Provider: Cookie Mcrae RN)1718 (Given - Provider: Cookie Mcrae RN) 0900 (Given - Provider: Yuliet Galaviz RN)1700 (Due) ipratropium 0.5 mg-albuterol 2.5 mg (DUONEB) nebulizer solution 1 Dose (CANCELED) 1 Dose, Inhalation, 4 times daily, First dose (after last modification) on 06/11/23 at 0900, Until Discontinued, Initiate RT Bronchodilator Protocol: Yes - Inpatient Protocol 0523 (Given - Provider: Ewa Rascon RCP)1137 (Given - Provider: Tere Espinoza RCP)1617 (Given - Provider: Tere Espinoza RCP)195 (Given - Provider: Ewa Rascon RCP) 0443 (Given - Provider: Ewa Rascon RCP) ipratropium 0.5 mg-albuterol 2.5 mg (DUONEB) nebulizer solution 1 Dose (CANCELED) 1 Dose, Inhalation, 3 TIMES DAILY, First dose (after last modification) on Tue06/13/23 at 0915, Until Discontinued, Initiate RT Bronchodilator Protocol: Yes - Inpatient Protocol 1015 (Given - Provider: Eulalia Solis RCP)1437 (Given - Provider: Eullaia Solis RCP)2014 (Given - Provider: Ewa Rascon CLINICAL STAFF EDUCATOR) 0734 (Given - Provider: Tere Espinoza [facility]) ipratropium 0.5 mg-albuterol 2.5 mg (DUONEB) nebulizer solution 1 Dose 1 Dose, Inhalation, 4 TIMES DAILY RESP, First dose (after last modification) on Tue06/14/23 at 1500, Until Discontinued, Initiate RT Bronchodilator Protocol: Yes - Inpatient Protocol 1500 (Due)1999 (Due) lisinopril (PRINIVIL;ZESTRIL) tablet 10 mg 10 mg, Oral, DAILY, First dose on 06/11/23 at 0900, Until Discontinued 0824 (Given - Provider: Makayla Leon RN) 0834 (Given - Provider: Cookie Mcrae RN) 0824 (Given - Provider: Yuliet Galaviz RN) methylPREDNISolone sodium succ (SOLU-MEDROL) injection 40 mg 40 mg, IntraVENous, EVERY 12 HOURS, First dose on 06/11/23 at 0900 0824 (Given - Provider: Makayla Leon RN)2016 (Given - Provider: Ramya Nam RN) 0835 (Given - Provider: Cookie Mcrae RN)210 (Given - Provider: Cheyenne Poon RN) 08 (Given - Provider: Yuliet Galaviz RN)2099 (Due) metoprolol succinate (TOPROL XL) extended release tablet 25 mg 25 mg, Oral, 2 times daily, First dose on 06/11/23 at 0100, Until Discontinued, Do not crush or chew. 0824 (Given - Provider: Makayla Leon RN)2015 (Given - Provider: Ramya Nam RN) 0834 (Given - Provider: Cookie Mcrae RN)2104 (Given - Provider: Cheyenne Poon, BREANNA) 823 (Given - Provider: Yuliet Galaviz, BREANNA)2099 (Due) montelukast (SINGULAIR) tablet 10 mg 10 mg, Oral, NIGHTLY, First dose on 06/11/23 at 0100, Until Discontinued, at bedtime. 2016 (Given - Provider: Ramya Nam RN) 2104 (Given - Provider: Cheyenne Poon RN) 2099 (Due) rOPINIRole (REQUIP) tablet 4 mg 4 mg, Oral, NIGHTLY, First dose on 06/11/23 at 0100, Until Discontinued 2015 (Given - Provider: Ramya Nam RN) 2041 (Given - Provider: Cheyenne Poon RN) 2099 (Due) sodium chloride flush 0.9 % injection 5-40 mL 5-40 mL, IntraVENous, EVERY 12 HOURS SCHEDULED (2 times per day), First dose on 06/11/23 at 0900, Until Discontinued, For Line Patency: Peripheral IV = 5 mL; Midline or Central Line = 10 mL/lumen. If following IV push medication, administer flush at same rate as the IV push. Flush volume is determined by type of infusion therapy being given. For non-viscous solutions use: Peripheral IV = 5 mL Midline or Central Line = 10 mL/lumen For viscous solutions (i.e. blood components, parenteral nutrition, contrast media, or after obtaining blood sample) use: Peripheral IV = 10 mL Midline or Central Line = 20 mL/lumen 0835 (Given - Provider: Makayla Leon RN)2016 (Given - Provider: Ramya Nam RN) 833 (Given - Provider: Cookie Mcrae RN)2113 (Given - Provider: Cheyenne Poon RN) 824 (Given - Provider: Yuliet Galaviz RN)2099 (Due) PRN Medication Order 06/12/2023 06/13/2023 06/14/2023 0.9 % sodium chloride infusion IntraVENous, at 100 mL/hr, PRN, If patient receiving piggyback infusions without ordered maintenance IV fluids or with frequent/long duration piggyback infusions, Starting on 06/11/23 at 0043, Administer at the same rate as the piggyback being infused. acetaminophen (TYLENOL) suppository 650 mg(Linked Group 2) 650 mg, Rectal, EVERY 6 HOURS PRN, Starting on 06/11/23 at 0043, Until Discontinued, Pain Mild (1-3), Fever, For temp greater than 100.4 F (38 C), Administer if oral route cannot be used. acetaminophen (TYLENOL) tablet 650 mg(Linked Group 2) 650 mg, Oral, EVERY 6 HOURS PRN, Starting on 06/11/23 at 0043, Until Discontinued, Pain Mild (1-3), Fever, For temp greater than 100.4 F (38 C), Maximum dose of acetaminophen is 4000 mg from all sources in 24 hours. albuterol (PROVENTIL) (2.5 MG/3ML) 0.083% nebulizer solution 2.5 mg 2.5 mg, Nebulization, EVERY 4 HOURS PRN, Starting on 06/11/23 at 0345, Until Discontinued, Wheezing, Initiate RT Bronchodilator Protocol: Yes baclofen (LIORESAL) tablet 10 mg 10 mg, Oral, 3 TIMES DAILY PRN, Starting on 06/11/23 at 0845, Until Discontinued, Muscle spasms, muscle spasm 2109 (Given - Provider: Cheyenne Poon, BREANNA) benzonatate (TESSALON) capsule 100 mg 100 mg, Oral, 3 TIMES DAILY PRN, Starting on 06/11/23 at 0043, Until Discontinued, Cough 191 (Given - Provider: Ramya Nam RN) dextrose 10 % infusion IntraVENous, at 100 mL/hr, CONTINUOUS PRN, if blood glucose remains LESS THAN 70 mg/dL after 2 dextrose 10% intravenous boluses or administration of glucagon, Starting on 06/11/23 at 0043, If blood glucose fails to stabilize after 2 dextrose 10% intravenous boluses or glucagon administration, start dextrose 10% infusion at 100 mL/hour and repeat blood glucose at 30 and 60 minutes. If blood glucose is GREATER THAN 70 mg/dL after 60 minutes, discontinue dextrose 10% infusion. dextrose 10 % infusion IntraVENous, at 100 mL/hr, CONTINUOUS PRN, if blood glucose remains LESS THAN 70 mg/dL after 2 dextrose 10% intravenous boluses or administration of glucagon, Starting on 06/11/23 at 1616, If blood glucose fails to stabilize after 2 dextrose 10% intravenous boluses or glucagon administration, start dextrose 10% infusion at 100 mL/hour and repeat blood glucose at 30 and 60 minutes. If blood glucose is GREATER THAN 70 mg/dL after 60 minutes, discontinue dextrose 10% infusion. dextrose bolus 10% 125 mL(Linked Group 3) 125 mL, IntraVENous, at 937.5 mL/hr, Administer over 8 Minutes, PRN, Other, Blood glucose 40 - 69 mg/dL and patient NOT ALERT or NPO, Starting on 06/11/23 at 0043, Repeat blood glucose in 15 minutes. If blood glucose remains LESS THAN 70 mg/dL, repeat treatment and recheck blood glucose in 15 minutes x 2. If using glycemic management system, dose as instructed per system. If blood glucose remains LESS THAN 70 mg/dL after 2 intravenous boluses start dextrose 10% at 100 mL/hour and notify provider. dextrose bolus 10% 125 mL(Linked Group 4) 125 mL, IntraVENous, at 937.5 mL/hr, Administer over 8 Minutes, PRN, Other, Blood glucose 40 - 69 mg/dL and patient NOT ALERT or NPO, Starting on 06/11/23 at 1616, Repeat blood glucose in 15 minutes. If blood glucose remains LESS THAN 70 mg/dL, repeat treatment and recheck blood glucose in 15 minutes x 2. If using glycemic management system, dose as instructed per system. If blood glucose remains LESS THAN 70 mg/dL after 2 intravenous boluses start dextrose 10% at 100 mL/hour and notify provider. dextrose bolus 10% 250 mL(Linked Group 3) 250 mL, IntraVENous, at 937.5 mL/hr, Administer over 16 Minutes, PRN, Other, Blood glucose LESS THAN 40 mg/dL and patient NOT ALERT or NPO, Starting on 06/11/23 at 0043, Repeat blood glucose in 15 minutes. If blood glucose remains LESS THAN 70 mg/dL, repeat treatment and recheck blood glucose in 15 minutes x 2. If using glycemic management system, dose as instructed per system. If blood glucose remains LESS THAN 70 mg/dL after 2 intravenous boluses start dextrose 10% at 100 mL/hour and notify provider. dextrose bolus 10% 250 mL(Linked Group 4) 250 mL, IntraVENous, at 937.5 mL/hr, Administer over 16 Minutes, PRN, Other, Blood glucose LESS THAN 40 mg/dL and patient NOT ALERT or NPO, Starting on 06/11/23 at 1616, Repeat blood glucose in 15 minutes. If blood glucose remains LESS THAN 70 mg/dL, repeat treatment and recheck blood glucose in 15 minutes x 2. If using glycemic management system, dose as instructed per system. If blood glucose remains LESS THAN 70 mg/dL after 2 intravenous boluses start dextrose 10% at 100 mL/hour and notify provider. glucagon (rDNA) injection 1 mg 1 mg, SubCUTAneous, PRN, Starting on 06/11/23 at 0043, Until Discontinued, Low blood sugar, Blood glucose LESS THAN 70 mg/dL and patient NOT ALERT or NPO and does not have IV access., After administration, attempt intravenous access and start dextrose 10% at 100 mL/hr. Repeat blood glucose in 15 minutes x 2 and notify provider. glucagon (rDNA) injection 1 mg 1 mg, IntraMUSCular, PRN, Starting on 06/11/23 at 1616, Until Discontinued, Low blood sugar, Blood glucose less than 70 mg/dL and patient NOT ALERT or NPO and does not have IV access., After administration, attempt intravenous access and start D5W at 100 mL/hr. Repeat blood glucose in 15 minutes x2 and notify provider. glucose chewable tablet 16 g 16 g (4 tablet), Oral, PRN, Starting on 06/11/23 at 0043, Until Discontinued, Low blood sugar, If blood glucose is LESS THAN 70 mg/dL and patient is alert and tolerating oral. Give 4 tablets (16g) Repeat blood glucose in 15 minutes. If blood glucose is LESS THAN 70 mg/dL, repeat treatment and recheck blood glucose in 15 minutes x 2. If blood glucose remains LESS THAN 70 mg/dL, notify provider. glucose chewable tablet 16 g 16 g (4 tablet), Oral, PRN, Starting on 06/11/23 at 1616, Until Discontinued, Low blood sugar, If blood glucose is LESS THAN 70 mg/dL and patient is alert and tolerating oral. Give 4 tablets (16g) Repeat blood glucose in 15 minutes. If blood glucose is LESS THAN 70 mg/dL, repeat treatment and recheck blood glucose in 15 minutes x 2. If blood glucose remains LESS THAN 70 mg/dL, notify provider. guaiFENesin-codeine (GUAIFENESIN AC) 100-10 MG/5ML liquid 5 mL 5 mL, Oral, EVERY 4 HOURS PRN, Starting on 06/12/23 at 0659, Until Discontinued, Cough 1622 (Given - Provider: Makayla Leon, BREANNA)2318 (Given - Provider: Ramya Nam, BREANNA) 0709 (Given - Provider: Cookie Mcrae, RN)1717 (Given - Provider: Cookie Mcrae, RN)2116 (Given - Provider: Cheyenne Poon, BREANNA) 0652 (Given - Provider: Yuliet Galaviz, BREANNA)1131 (Given - Provider: Yuliet Galaviz RN) guaiFENesin-dextromethorp mullen (ROBITUSSIN DM) 100-10 MG/5ML syrup 5 mL 5 mL, Oral, EVERY 4 HOURS PRN, Starting on 06/11/23 at 0043, Until Discontinued, Cough 0659 (Held by provider - Provider: Emanuel Danielle MD - Reason: Other) ondansetron (ZOFRAN) injection 4 mg(Linked Group 5) 4 mg, IntraVENous, EVERY 6 HOURS PRN, Starting on 06/11/23 at 0043, Until Discontinued, Nausea, Vomiting, Administer if oral route cannot be used. ondansetron (ZOFRAN-ODT) disintegrating tablet 4 mg(Linked Group 5) 4 mg, Oral, EVERY 8 HOURS PRN, Starting on 06/11/23 at 0043, Until Discontinued, Nausea, Vomiting polyethylene glycol (GLYCOLAX) packet 17 g 17 g, Oral, DAILY PRN, Starting on 06/11/23 at 0043, Until Discontinued, Constipation, First line therapy for constipation sodium chloride flush 0.9 % injection 5-40 mL 5-40 mL, IntraVENous, PRN, Starting on 06/11/23 at 0043, Until Discontinued, Line Care, After every IV line use, For Line Patency: Peripheral IV = 5 mL; Midline or Central Line = 10 mL/lumen. If following IV push medication, administer flush at same rate as the IV push. Flush volume is determined by type of infusion therapy being given. For non-viscous solutions use: Peripheral IV = 5 mL Midline or Central Line = 10 mL/lumen For viscous solutions (i.e. blood components, parenteral nutrition, contrast media, or after obtaining blood sample) use: Peripheral IV = 10 mL Midline or Central Line = 20 mL/lumen traMADol (ULTRAM) tablet 50 mg 50 mg, Oral, EVERY 4 HOURS PRN, Starting on 06/12/23 at 0715, Until Discontinued, Pain Mild (1-3), Pain Moderate (4-6), Pain Severe (7-10) 0823 (Given - Provider: Makayla Leon RN)1919 (Given - Provider: Ramya Nam RN) 0709 (Given - Provider: Cookie Mcrae, RN)1213 (Given - Provider: Cookie Mcrae, RN)1716 (Given - Provider: Cookie Mcrae, RN)2116 (Given - Provider: Cheyenne Poon, BREANNA) 0652 (Given - Provider: Yuliet Galaviz, BREANNA)1131 (Given - Provider: Yuliet Galaviz, BREANNA) No Frequency Medication Order 06/12/2023 06/13/2023 06/14/2023 sterile water injection (COMPLETED) 1 dose, Starting on 06/12/23 at 0814, Until 06/12/23 at 0825, Makayla Leon: cabinet override, Makayla Leon: cabinet override 0825 (Given - Provider: Makayla Leon RN) sterile water injection (COMPLETED) 1 dose, Starting on 06/12/23 at 2014, Until 06/12/23 at 2017, Ramya Nam: cabinet override, Ramya Nam: cabinet override 2016 (Given - Provider: Ramya Nam RN) Linked Groups Order Group 1: cefTRIAXone (ROCEPHIN) 1,000 mg in sodium chloride 0.9 % 50 mL IVPB (mini- bag)Jump to med 1,000 mg, IntraVENous, EVERY 24 HOURS, 5 doses, First dose on 06/11/23 at 2300, Last dose on Tue06/15/23 at 2300
Antimicrobial Indications: Pneumonia (CAP)
CAP duration of therapy: 5 days And azithromycin (ZITHROMAX) tablet 500 mg (COMPLETED)Jump to med 500 mg, Oral, EVERY 24 HOURS, 3 doses, First dose on 06/11/23 at 2300, Last dose on 06/13/23 at 2300
Antimicrobial Indications: Pneumonia (CAP)
CAP duration of therapy: Other
Other CAP Duration: 3 days Group 2: acetaminophen (TYLENOL) tablet 650 mgJump to med 650 mg, Oral, EVERY 6 HOURS PRN, Starting on 06/11/23 at 0043, Until Discontinued, Pain Mild (1-3), Fever, For temp greater than 100.4 F (38 C)
Maximum dose of acetaminophen is 4000 mg from all sources in 24 hours.
Or acetaminophen (TYLENOL) suppository 650 mgJump to med 650 mg, Rectal, EVERY 6 HOURS PRN, Starting on 06/11/23 at 0043, Until Discontinued, Pain Mild (1-3), Fever, For temp greater than 100.4 F (38 C)
Administer if oral route cannot be used.
Group 3: dextrose bolus 10% 125 mLJump to med 125 mL, IntraVENous, at 937.5 mL/hr, Administer over 8 Minutes, PRN, Other, Blood glucose 40 - 69 mg/dL and patient NOT ALERT or NPO, Starting on 06/11/23 at 0043
Repeat blood glucose in 15 minutes. If blood glucose remains LESS THAN 70 mg/dL, repeat treatment and recheck blood glucose in 15 minutes x 2. If using glycemic management system, dose as instructed per system. If blood glucose remains LESS THAN 70 mg/dL after 2 intravenous boluses start dextrose 10% at 100 mL/hour and notify provider.
Or dextrose bolus 10% 250 mLJump to med 250 mL, IntraVENous, at 937.5 mL/hr, Administer over 16 Minutes, PRN, Other, Blood glucose LESS THAN 40 mg/dL and patient NOT ALERT or NPO, Starting on 06/11/23 at 0043
Repeat blood glucose in 15 minutes. If blood glucose remains LESS THAN 70 mg/dL, repeat treatment and recheck blood glucose in 15 minutes x 2. If using glycemic management system, dose as instructed per system. If blood glucose remains LESS THAN 70 mg/dL after 2 intravenous boluses start dextrose 10% at 100 mL/hour and notify provider.
Group 4: dextrose bolus 10% 125 mLJump to med 125 mL, IntraVENous, at 937.5 mL/hr, Administer over 8 Minutes, PRN, Other, Blood glucose 40 - 69 mg/dL and patient NOT ALERT or NPO, Starting on 06/11/23 at 1616
Repeat blood glucose in 15 minutes. If blood glucose remains LESS THAN 70 mg/dL, repeat treatment and recheck blood glucose in 15 minutes x 2. If using glycemic management system, dose as instructed per system. If blood glucose remains LESS THAN 70 mg/dL after 2 intravenous boluses start dextrose 10% at 100 mL/hour and notify provider.
Or dextrose bolus 10% 250 mLJump to med 250 mL, IntraVENous, at 937.5 mL/hr, Administer over 16 Minutes, PRN, Other, Blood glucose LESS THAN 40 mg/dL and patient NOT ALERT or NPO, Starting on 06/11/23 at 1616
Repeat blood glucose in 15 minutes. If blood glucose remains LESS THAN 70 mg/dL, repeat treatment and recheck blood glucose in 15 minutes x 2. If using glycemic management system, dose as instructed per system. If blood glucose remains LESS THAN 70 mg/dL after 2 intravenous boluses start dextrose 10% at 100 mL/hour and notify provider.
Group 5: ondansetron (ZOFRAN-ODT) disintegrating tablet 4 mgJump to med 4 mg, Oral, EVERY 8 HOURS PRN, Starting on 06/11/23 at 0043, Until Discontinued, Nausea, Vomiting Or ondansetron (ZOFRAN) injection 4 mgJump to med 4 mg, IntraVENous, EVERY 6 HOURS PRN, Starting on 06/11/23 at 0043, Until Discontinued, Nausea, Vomiting
Administer if oral route cannot be used.
Goals (unrecognized section and content) Goals may be documented in a n alternate sectionGoals may be documented in an alternate sectionNo InformationNo Information FOR RECORDS PERTAINING TO PATIENTS WHO ARE OR HAVE BEEN ENROLLED IN A CHEMICAL DEPENDENCY/SUBSTANCEABUSE PROGRAM, SOME INFORMATION MAY BE OMITTED. This clinical summary was aggregated from multiple sources. Caution should be exercised in using it in the provision of clinical care. This summary normalizes information from multiple sources, and as a consequence, information in this document may materially change the coding, format and clinical context of patient data. In addition, data may be omitted in some cases. CLINICAL DECISIONS SHOULD BE BASED ON THE PRIMARY CLINICAL RECORDS. [facility] [employer] [facility]. provides no warranty or guarantee of the accuracy or completeness of information in this document.
--- NOTE | 2023-09-15 13:10 | P.CN_ITS ---
Consult Note: HPI Data of Consult Patient: known to practice within the last 3 years Requesting Physician: Suzi Longoria NP Primary Care Provider: Non-Staff Physician, Family Provider: DMRAMANA Consult Narrative Reason for consult: f/u Narrative: Risa Joshi a pleasant 48 year old female presents for evaluation and management of chronic back pain. Recently underwent Left Lumbar 2,3,4 facet medial branch Radiofrequency ablation with Today rating pain /10 cc:: CC: Suzi Longoria NP Review of Systems ROS Status of ROS 10 or more systems reviewed and unremark able except as noted in history and below [facility] Medical History Angina at rest ?I20.8 - Other forms of angina pectoris (ICD-10) Asthma ?J45.909 - Unspecified asthma, uncomplicated (ICD-10) Diabetes ?E11.9 - Type 2 diabetes mellitus without complications (ICD-10) Fibromyalgia ?M79.7 - Fibromyalgia (ICD-10) Goiter ?E04.9 - Nontoxic goiter, unspecified (ICD-10) Heart palpitations ?R00.2 - Palpitations (ICD-10) High cholesterol ?E78.00 - Pure hypercholesterolemia, unspecified (ICD-10) Hypertension ?I10 - Essential (primary) hypertension (ICD-10) Hyperthyroidism ?E05.90 - Thyrotoxicosis, unspecified without thyrotoxic crisis or storm (ICD-10) Kidney stone ?N20.0 - Calculus of kidney (ICD-10) Low back pain ?M54.50 - Low back pain, unspecified (ICD-10) Neck pain ?M54.2 - Cervicalgia (ICD-10) Neuropathy ?G62.9 - Polyneuropathy, unspecified (ICD-10) RSD (reflex sympathetic dystrophy) ?G90.50 - Complex regional pain syndrome I, unspecified (ICD-10) S/P extracorporeal shock wave therapy ?Z98.890 - Other specified postprocedural states (ICD-10) Smoker ?F17.200 - Nicotine dependence, unspecified, uncomplicated (ICD-10) TMJ (dislocation of temporomandibular joint) ?S03.00XA - Dislocation of jaw, unspecified side, initial encounter (ICD-10) Upper back pain ?M54.9 - Dorsalgia, unspecified (ICD-10) Ureteral stent displacement ?T83.122A - Displacement of indwelling ureteral stent, initial encounter (I CD-10) Surgical History H/O: hysterectomy ?Z90.710 - Acquired absence of both cervix and uterus (ICD-10) S/P insertion of spinal cord stimulator ?Z96.89 - Presence of other specified functional implants (ICD-10) S/P shoulder surgery ?Z98.890 - Other specified postprocedural states (ICD-10) Meds Home Medications and Allergies Home Medications Medication Instructions Recorded Confirmed Type aspirin 81 mg tablet,delayed 81 mg PO DAILY 02/25/23 08/16/23 History release (Adult Low Dose Aspirin) atorvastatin 80 mg tablet (Lipitor) 80 mg PO DAILY 02/25/23 08/16/23 History baclofen 10 mg tablet 10 mg PO DAILY 02/25/23 08/16/23 History diclofenac sodium 75 mg 75 mg PO BID 02/25/23 08/16/23 History tablet,delayed release duloxetine 60 mg capsule,delayed 60 mg PO DAILY 02/25/23 08/16/23 History release empagliflozin PO QDAY 02/25/23 History fenofibrate 54 mg tablet 54 mg PO DAILY 02/25/23 08/16/23 History fenofibrate micronized PO QDAY 02/25/23 History fluticasone propionate 50 1 spray intranasal DAILY 02/25/23 07/12/23 History mcg/actuation nasal spray,suspension (Flonase Allergy Relief) furosemide 20 mg tablet (Lasix) 20 mg PO DAILY 02/25/23 08/16/23 History gabapentin 600 mg tablet 600 mg PO TID 02/25/23 08/16/23 History insulin lispro 200 unit/mL (3 mL) 20 unit subcut TID 02/25/23 08/16/23 History subcutaneous pen (Humalog KwikPen U-200 Insulin) levocetirizine 5 mg tablet (Xyzal) 5 mg PO DAILY 02/25/23 08/16/23 History lisinopril 10 mg tablet 10 mg PO DAILY 02/25/23 08/16/23 History metoprolol succinate PO QDAY 02/25/23 History montelukast 10 mg tablet 10 mg PO QPM 02/25/23 08/16/23 History (Singulair) ropinirole 4 mg tablet 4 mg PO DAILY 02/25/23 08/16/23 History tramadol 100 mg tablet 100 mg PO BID 02/25/23 08/16/23 History albuterol sulfate 90 mcg/actuation inhalation TID PRN shortness of 05/31/23 History aerosol inhaler breath or wheezing insulin regular hum U-500 conc 500 unit subcut 07/12/23 History unit/mL(3 mL) subcut pen (Humulin R U-500 (Conc) Insulin Kwikpen) ropinirole 4 mg tablet 4 mg PO DAILY #30 tabs 07/13/23 Rx tramadol 50 mg tablet 50 mg PO QID PRN pain #120 tabs 07/13/23 08/16/23 Rx Allergies Allergy/AdvReac Type Severity Reaction Status Date / Time Penicillins Allergy Unknown Verified 07/12/23 08:34 Exam Constitutional Documenting provider has reviewed patient's vital signs: yes Common normals: no apparent distress, oriented x3, healthy appearing, alert and well nourished General appearance: cooperative HENMT Common normals: normocephalic, hearing grossly normal bilaterally and moist oral mucous membranes Head and scalp: normocephalic Eye Common normals: PERRL Pupil: PERRL Neck & C-Spine Common normals: full ROM General: normal visual inspection Chest Common normals: inspection of chest normal Respiratory Common normals: normal respiratory effort, no retractions and no use of accessory muscles Neuro Common normals: oriented x3, CN's II-XII intact bilaterally, moves all extremities, no focal motor deficits, no sensory deficits noted and deep tendon reflexes 2+ bilaterally Sensorium/orientation: alert Motor exam: strength 5/5 throughout and no movement abnormalities noted Psych Common normals: mental status grossly normal, thought process normal, cooperative, affect normal, speech normal and activity/motor behavior normal Speech: normal speech Thought process: normal thought process Results Additional Findings Additional findings: I have checked an [place] report on this patient today and there are no aberrancies noted in the prescribing history.?? A drug screen was completed and reviewed within the last year, and if there has not been a drug screen completed we ordered one today to monitor higher risk, state monitored pain medication use. As part of providing excellent, safe, comprehensive care, the following was completed at our patient's visit: 1. A medication reconciliation and review to ensure accurate knowledge of current/active medications, including asking our patients to inform us about any [id number] medications or herbal remedies/nutritional supplements/alternative remedies. 2. A review to specifically ensure our patients have had annual screening for: elevated body mass index (BMI), tobacco use, screening for depression, and screening for unhealthy alcohol use. When screening is concerning, patients are provided with education and the specific recommendation to discuss the concerning health issue and treatment options with their primary care provider.
--- NOTE | 2023-09-15 13:55 | PM.CN ---
Consult Note: HPI Data of Consult Patient: known to practice within the last 3 years Requesting Physician: Suzi Longoria NP Primary Care Provider: Non-Staff Physician, Family Provider: DMRAMANA Consult Narrative Reason for consult: f/u Narrative: Risa Joshi a 48 year old female presents for follow up on chronic back pain. Patient has had numerous MBB & RFA historically. Patient continues to have intense middle to low back pain, today pain 7/10. Reports 50% ongoing relief from left L 2,3,4 thermal facet medial branch RFA. Patient has a complex hx and is reporting coccyx pain today that is shooting into bilateral feet. cc:: CC: Suzi Longoria NP Review of Systems ROS Status of ROS 10 or more systems reviewed and unremarkable except as noted in history and below Musculoskeletal Reports: back pain, extremity pain, joint pain, limited range of motion, muscle cramps and muscle weakness PFSH PFSH Medical History S/P extracorporeal shock wave therapy ?Z98.890 - Other specified postprocedural states (ICD-10) Ureteral stent displacement ?T83.122A - Displacement of indwelling ureteral stent, initial encounter (ICD-10) Goiter ?E04.9 - Nontoxic goiter, unspecified (ICD-10) RSD (reflex sympathetic dystrophy) ?G90.50 - Complex regional pain syndrome I, unspecified (ICD-10) TMJ (dislocation of temporomandibular joint) ?S03.00XA - Dislocation of jaw, unspecified side, initial encounter (ICD-10) Upper back pain ?M54.9 - Dorsalgia, unspecified (ICD-10) Neck pain ?M54.2 - Cervicalgia (ICD-10) Low back pain ?M54.50 - Low back pain, unspecified (ICD-10) Fibromyalgia ?M79.7 - Fibromyalgia (ICD-10) Neuropathy ?G62.9 - Polyneuropathy, unspecified (ICD-10) Hyperthyroidism ?E05.90 - Thyrotoxicosis, unspecified without thyrotoxic crisis or storm (ICD-10) Heart palpitations ?R00.2 - Palpitations (ICD-10) Angina at rest ?I20.8 - Other forms of angina pectoris (ICD-10) Kidney stone ?N20.0 - Calculus of kidney (ICD-10) Asthma ?J45.909 - Unspecified asthma, uncomplicated (ICD-10) Smoker ?F17.200 - Nicotine dependence, unspecified, uncomplicated (ICD-10) Hypertension ?I10 - Essential (primary) hypertension (ICD-10) High cholesterol ?E78.00 - Pure hypercholesterolemia, unspecified (ICD-10) Diabetes ?E11.9 - Type 2 diabetes mellitus without complications (ICD-10) Surgical History S/P insertion of spinal cord stimulator ?Z96.89 - Presence of other specified functional implants (ICD-10) H/O: hysterectomy ?Z90.710 - Acquired absence of both cervix and uterus (ICD-10) S/P shoulder surgery ?Z98.890 - Other specified postprocedural states (ICD-10) Meds Home Medications and Allergies Home Medications Medication Instructions Recorded Confirmed Type aspirin 81 mg tablet,delayed 81 mg PO DAILY 02/25/23 08/16/23 History release (Adult Low Dose Aspirin) atorvastatin 80 mg tablet (Lipitor) 80 mg PO DAILY 02/25/23 08/16/23 History baclofen 10 mg tablet 10 mg PO DAILY 02/25/23 08/16/23 History diclofenac sodium 75 mg 75 mg PO BID 02/25/23 08/16/23 History tablet,delayed release duloxetine 60 mg capsule,delayed 60 mg PO DAILY 02/25/23 08/16/23 History release empagliflozin PO QDAY 02/25/23 History fenofibrate 54 mg tablet 54 mg PO DAILY 02/25/23 08/16/23 History fenofibrate micronized PO QDAY 02/25/23 History fluticasone propionate 50 1 spray intranasal DAILY 02/25/23 07/12/23 History mcg/actuation nasal spray,suspension (Flonase Allergy Relief) furosemide 20 mg tablet (Lasix) 20 mg PO DAILY 02/25/23 08/16/23 History gabapentin 600 mg tablet 600 mg PO TID 02/25/23 08/16/23 History insulin lispro 200 unit/mL (3 mL) 20 unit subcut TID 02/25/23 08/16/23 History subcutaneous pen (Humalog KwikPen U-200 Insulin) levocetirizine 5 mg tablet (Xyzal) 5 mg PO DAILY 02/25/23 08/16/23 History lisinopril 10 mg tablet 10 mg PO DAILY 02/25/23 08/16/23 History metoprolol succinate PO QDAY 02/25/23 History montelukast 10 mg tablet 10 mg PO QPM 02/25/23 08/16/23 History (Singulair) ropinirole 4 mg tablet 4 mg PO DAILY 02/25/23 08/16/23 History tramadol 100 mg tablet 100 mg PO BID 02/25/23 08/16/23 History albuterol sulfate 90 mcg/actuation inhalation TID PRN shortness of 05/31/23 History aerosol inhaler breath or wheezing insulin regular hum U-500 conc 500 unit subcut 07/12/23 History unit/mL(3 mL) subcut pen (Humulin R U-500 (Conc) Insulin Kwikpen) ropinirole 4 mg tablet 4 mg PO DAILY #30 tabs 07/13/23 Rx tramadol 50 mg tablet 50 mg PO QID PRN pain #120 tabs 07/13/23 08/16/23 Rx Allergies Allergy/AdvReac Type Severity Reaction Status Date / Time Penicillins Allergy Unknown Verified 07/12/23 08:34 Exam Constitutional Documenting provider has reviewed patient's vital signs: yes Common normals: no apparent distress, oriented x3, healthy appearing, alert and well nourished General appearance: cooperative HENUT Common normals: normocephalic, hearing grossly normal bilaterally and moist oral mucous membranes Head and scalp: normocephalic Eye Common normals: PERRL Pupil: PERRL Neck & C-Spine Common normals: full ROM General: normal visual inspection Chest Common normals: inspection of chest normal Respiratory Common normals: normal respiratory effort, no retractions and no use of accessory muscles Back & Pelvis Lumbar spine/lower back: ROM limited and pain with ROM Extremity Common normals: normal to inspection and full ROM Other: left shoulder limited ROM, pain with ROM, tender to touch Neuro Common normals: oriented x3, CN's II-XII intact bilaterally, moves all extremities, no focal motor deficits, no sensory deficits noted and deep tendon reflexes 2+ bilaterally Sensorium/orientation: alert Gait (neuro): normal gait Motor exam: strength 5/5 throughout and no movement abnormalities noted Psych Common normals: mental status grossly normal, thought process normal, cooperative, affect normal, speech normal and activity/motor behavior normal Speech: normal speech Thought process: normal thought process Assessment and Plan Assessment and Plan (1) Primary osteoarthritis, left shoulder: (2) Left shoulder pain: (3) Chronic prescription opiate use: Assessment and Plan: patient is to stop tramadol at this time, would like to explore marijuana (4) Muscle spasm: (5) Lumbar spondylosis: (6) Fibromyalgia: Assessment and Plan: please see paper chart for patients depiction of pain locations Plan referral to orthopedics for left shoulder pain per pt request, recent xray reveals mild OA of left shoulder EMG NCV of BLE stop tramadol at this time, she would like to trial marijuana f/u 3 months
== END 2023-09-15 12:57 | disposition home or self-care (01) ==
LOC: PM 12:56
PROVIDERS: Visit Provider Nurse Practitioner
DX: M19.012 Primary osteoarthritis, left shoulder (principal); M25.512 Pain in left shoulder; Z79.891 Long term (current) use of opiate analgesic; M62.838 Other muscle spasm; M47.816 Spondylosis without myelopathy or radiculopathy, lumbar region; M79.7 Fibromyalgia
CPT/HCPCS: G0463

== ENCOUNTER 2023-12-08 13:44 | Outpatient (OUT) | payer OTHER, SELFPAY ==
--- NOTE | 2023-12-08 14:28 | P.CN_ITS ---
Consult Note: HPI Data of Consult Patient: known to practice within the last 3 years Requesting Physician: Suzi Longoria NP Primary Care Provider: Non-Staff Physician, Family Provider: DMRAMANA Consult Narrative Reason for consult: f/u Narrative: Risa Joshi a 48 year old female presents for follow up on chronic back pain. Patient has had numerous MBB & RFA historically. Patient continues to have intense middle to low back pain, today pain 8/10. Reports 50% ongoing relief from left L 2,3,4 thermal facet medial branch RFA. Patient has a complex hx and is reporting coccyx pain today that is shooting into bilateral feet. Pain is intense and constant, increased with standing walking sitting and activity. Patient has been following with neurology and rheumatology. Patient trialed marijuana with benefit to low back pain but no benefit to other pain. cc:: CC: Suzi Longoria NP Review of Systems ROS Status of ROS 10 or more systems reviewed and unremark able except as noted in history and below Musculoskeletal Reports: back pain, neck pain, extremity pain, joint pain and muscle weakness PFSH PFSH Medical History S/P extracorporeal shock wave therapy ?Z98.890 - Other specified postprocedural states (ICD-10) Ureteral stent displacement ?T83.122A - Displacement of indwelling ureteral stent, initial encounter (ICD-10) Goiter ?E04.9 - Nontoxic goiter, unspecified (ICD-10) RSD (reflex sympathetic dystrophy) ?G90.50 - Complex regional pain syndrome I, unspecified (ICD-10) TMJ (dislocation of temporomandibular joint) ?S03.00XA - Dislocation of jaw, unspecified side, initial encounter (ICD-10) Upper back pain ?M54.9 - Dorsalgia, unspecified (ICD-10) Neck pain ?M54.2 - Cervicalgia (ICD-10) Low back pain ?M54.50 - Low back pain, unspecified (ICD-10) Fibromyalgia ?M79.7 - Fibromyalgia (ICD-10) Neuropathy ?G62.9 - Polyneuropathy, unspecified (ICD-10) Hyperthyroidism ?E05.90 - Thyrotoxicosis, unspecified without thyrotoxic crisis or storm ( ICD-10) Heart palpitations ?R00.2 - Palpitations (ICD-10) Angina at rest ?I20.8 - Other forms of angina pectoris (ICD-10) Kidney stone ?N20.0 - Calculus of kidney (ICD-10) Asthma ?J45.909 - Unspecified asthma, uncomplicated (ICD-10) Smoker ?F17.200 - Nicotine dependence, unspecified, uncomplicated (ICD-10) Hypertension ?I10 - Essential (primary) hypertension (ICD-10) High cholesterol ?E78.00 - Pure hypercholesterolemia, unspecified (ICD-10) Diabetes ?E11.9 - Type 2 diabetes mellitus without complications (ICD-10) Surgical History S/P insertion of spinal cord stimulator ?Z96.89 - Presence of other specified functional implants (ICD-10) H/O: hysterectomy ?Z90.710 - Acquired absence of both cervix and uterus (ICD-10) S/P shoulder surgery ?Z98.890 - Other specified postprocedural states (ICD-10) Meds Home Medications and Allergies Home Medications Medication Instructions Recorded Confirmed Type aspirin 81 mg tablet,delayed 81 mg PO DAILY 02/25/23 08/16/23 History release (Adult Low Dose Aspirin) atorvastatin 80 mg tablet (Lipitor) 80 mg PO DAILY 02/25/23 08/16/23 History baclofen 10 mg tablet 10 mg PO DAILY 02/25/23 08/16/23 History diclofenac sodium 75 mg 75 mg PO BID 02/25/23 08/16/23 History tablet,delayed release duloxetine 60 mg capsule,delayed 60 mg PO DAILY 02/25/23 08/16/23 History release empagliflozin PO QDAY 02/25/23 History fenofibrate 54 mg tablet 54 mg PO DAILY 02/25/23 08/16/23 History fenofibrate micronized PO QDAY 02/25/23 History fluticasone propionate 50 1 spray intranasal DAILY 02/25/23 07/12/23 History mcg/actuation nasal spray,suspension (Flonase Allergy Relief) furosemide 20 mg tablet (Lasix) 20 mg PO DAILY 02/25/23 08/16/23 History gabapentin 600 mg tablet 600 mg PO TID 02/25/23 08/16/23 History insulin lispro 200 unit/mL (3 mL) 20 unit subcut TID 02/25/23 08/16/23 History subcutaneous pen (Humalog KwikPen U-200 Insulin) levocetirizine 5 mg tablet (Xyzal) 5 mg PO DAILY 02/25/23 08/16/23 History lisinopril 10 mg tablet 10 mg PO DAILY 02/25/23 08/16/23 History metoprolol succinate PO QDAY 02/25/23 History montelukast 10 mg tablet 10 mg PO QPM 02/25/23 08/16/23 History (Singulair) ropinirole 4 mg tablet 4 mg PO DAILY 02/25/23 08/16/23 History tramadol 100 mg tablet 100 mg PO BID 02/25/23 08/16/23 History albuterol sulfate 90 mcg/actuation inhalation TID PRN shortness of 05/31/23 History aerosol inhaler breath or wheezing insulin regular hum U-500 conc 500 unit subcut 07/12/23 History unit/mL(3 mL) subcut pen (Humulin R U-500 (Conc) Insulin Kwikpen) ropinirole 4 mg tablet 4 mg PO DAILY #30 tabs 07/13/23 Rx tramadol 50 mg tablet 50 mg PO QID PRN pain #120 tabs 07/13/23 08/16/23 Rx baclofen 10 mg tablet 10 mg PO BID #60 tabs 11/02/23 Rx tramadol 50 mg tablet 100 mg (2 x 50 mg) PO BID PRN pain 11/02/23 Rx #120 tabs tramadol 100 mg tablet 100 mg PO BID PRN pain #60 tabs 12/05/23 Rx tramadol 50 mg tablet 100 mg (2 x 50 mg) PO BID PRN pain 12/07/23 Rx #120 tabs Allergies Allergy/AdvReac Type Severity Reaction Status Date / Time Penicillins Allergy Unknown Verified 07/12/23 08:34 Exam Constitutional Documenting provider has reviewed patient's vital signs: yes Common normals: no apparent distress, oriented x3, healthy appearing, alert and well nourished General appearance: cooperative HENMT Common normals: normocephalic, hearing grossly normal bilaterally and moist oral mucous membranes Head and scalp: normocephalic Eye Common normals: PERRL Pupil: PERRL Neck & C-Spine Common normals: full ROM General: normal visual inspection Chest Common normals: inspection of chest normal Respiratory Common normals: normal respiratory effort, no retractions and no use of accessory muscles Back & Pelvis Lumbar spine/lower back: ROM limited, pain with ROM and straight leg raise positive right Sacroiliac joints: SI joint(s) abnormal Other: right positive nathan, fadir, thigh thrust, gaenslens Extremity Common normals: normal to inspection and full ROM Other: left shoulder limited ROM, pain with ROM, tender to touch Neuro Common normals: oriented x3, CN's II-XII intact bilaterally, moves all extremities, no focal motor deficits, no sensory deficits noted and deep tendon reflexes 2+ bilaterally Sensorium/orientation: alert Gait (neuro): antalgic Motor exam: no movement abnormalities noted and strength abnormal (4/5 BUE BLE ) Psych Common normals: mental status grossly normal, thought process normal, cooperative, affect normal, speech normal and activity/motor behavior normal Speech: normal speech Thought process: normal thought process Assessment and Plan Assessment and Plan (1) Fibromyalgia: (2) Myofascial pain: (3) Chronic prescription opiate use: (4) Muscle spasm: (5) Lumbar spondylosis: (6) Lumbar radiculopathy: (7) Sacroiliitis: Plan encouraged to f/u with rheumatology regarding worsening of chronic multidynamic pain to rule out other underlying pathologies. Pt has a hx of OA and FM patient found mild benefit to marijuana for low back pain but it did not improve any of her other pain and symptoms continue tramadol 100mg BID PRN moderate to severe pain as she notices improvement in pain and functional ability with this medication increase baclofen to 10mg TID PRN myofascial pain continue other medications right L4-5 L5-S1 TFESI under fluoroscopy followed by nerve block of right SIJ aquatherapy and PT for dry needling/massage f/u after injections
== END 2023-12-08 13:45 | disposition home or self-care (01) ==
LOC: PM 13:44
PROVIDERS: Visit Provider Nurse Practitioner
DX: M79.7 Fibromyalgia (principal); Z79.891 Long term (current) use of opiate analgesic; M62.838 Other muscle spasm; M47.816 Spondylosis without myelopathy or radiculopathy, lumbar region; M54.16 Radiculopathy, lumbar region; M46.1 Sacroiliitis, not elsewhere classified
CPT/HCPCS: G0463

== ENCOUNTER 2023-12-26 10:01 | Day surgery (SDC) | payer OTHER, SELFPAY ==
[2023-12-26 10:18] LABS: Glucometer 163 mg/dL (74-106)
[2023-12-26 10:22] VITALS: BP 149/81; PULSE 109; TEMP 36.7; O2SAT 97
[2023-12-26 10:43] VITALS: BP 134/84; PULSE 98; O2SAT 92
[2023-12-26] MEDS: 0.9 % SODIUM CHLORIDE 10 ML INJ (10:44)
[2023-12-26] MEDS: TRIAMCINOLONE ACETONIDE 40 MG/ML VIAL INJ (10:44)
[2023-12-26] MEDS: BUPIVACAINE HCL 0.25% PF 25 MG/10 ML VIAL INJ (10:44)
[2023-12-26] MEDS: IOHEXOL 240 MG/ML - 10 ML VIAL INJ (10:45)
[2023-12-26] MEDS: LIDOCAINE HCL 2% PF 100 MG/5 ML VIAL 4 ML INJ (10:45)
--- NOTE | 2023-12-26 10:47 | P.ON_ITS ---
Date of procedure: 12/26/23 Pre-op diagnosis: Lumbar stenosis with neurogenic claudication Post-op diagnosis: same as pre-op Procedure: Procedure: Right L4-5, l5-S1 transforaminal epidural steroid injection Medications: Bupivacaine 0.25% 2cc, lidocaine 2% 1cc, kenalog 80mg The patient was seen and examined in the preoperative holding area.? Informed consent was obtained and placed on the chart.? Patient was brought to the medical procedure unit and placed in the prone position where a timeout was completed verifying the correct patient, procedure site, position, and planned special equipment using sterile aseptic technique.? Under direct fluoroscopic visualization a 25-gauge Quincke tipped spinal needle was advanced to the designated neural foramen where contrast dye was injected to show adequate spread.? The needle was inserted at level right L4-5. There was no evidence of vascular or adverse uptake.? Epidural spread was appreciated.? The above- mentioned injectate was then placed in a 1.5 mL aliquot preceded by negative aspiration.? The needle was removed. The needle was inserted and the procedure repeated at level right L5-S1.? The surgery site was covered.? Patient was taken to the postprocedural recovery area and monitored for an appropriate length of time before found suitable for discharge in the accompaniment of a responsible adult. Anesthesia: Local Surgeon: Alexander Story Pathology: none sent Condition: stable Disposition: no change
[2023-12-28 14:38] VITALS: BP 138/81; PULSE 99; O2SAT 90
== END 2023-12-26 10:51 | disposition home or self-care (01) ==
PROVIDERS: Visit Provider Anesthesiology
DX: M48.062 Spinal stenosis, lumbar region with neurogenic claudication (principal); Z79.4 Long term (current) use of insulin
CPT/HCPCS: 36415; 64483; 64484; 82948; Q9966

== ENCOUNTER 2024-01-09 09:53 | Day surgery (SDC) | payer OTHER, SELFPAY ==
[2024-01-09 10:56] VITALS: BP 122/67; PULSE 89; TEMP 36.7; O2SAT 97
[2024-01-09 11:22] VITALS: BP 138/68; PULSE 89; O2SAT 93
[2024-01-09] MEDS: BUPIVACAINE HCL 0.25% PF 25 MG/10 ML VIAL INJ (11:22)
[2024-01-09] MEDS: TRIAMCINOLONE ACETONIDE 40 MG/ML VIAL INJ (11:22)
[2024-01-09] MEDS: LIDOCAINE HCL 2% PF 100 MG/5 ML VIAL INJ (11:22)
[2024-01-09] MEDS: IOHEXOL 240 MG/ML - 10 ML VIAL INJ (11:22)
[2024-01-09 11:23] VITALS: BP 132/65; PULSE 88; O2SAT 94
--- NOTE | 2024-01-09 11:24 | P.ON_ITS ---
Date of procedure: 01/09/24 Pre-op diagnosis: Right sacroiliitis Post-op diagnosis: same as pre-op Procedure: Procedure: Right sacroiliac joint injection Medications: Bupivacaine 0.25% 3cc, kenalog 40mg After informed consent was obtained, the patient was brought to the medical p rocedure unit and placed in the prone position, when a timeout was completed verifying correct patient, procedure, site, positioning, implant, and/or special equipment.? The skin overlying the area was prepped and draped in standard sterile fashion using alcohol.? A 25-gauge needle was inserted towards the right sacroiliac joint under direct fluoroscopic imaging.? Needle tip was advanced until the joint was encountered.? We instilled a total of 3 mL of solution.? Postoperatively needles were removed.? The patient tolerated the procedure well without complication.? The patient reported reduction in pain symptoms postoperatively. Anesthesia: Local Surgeon: Alexander Story Pathology: none sent Condition: stable Disposition: no change
== END 2024-01-09 11:27 | disposition home or self-care (01) ==
LOC: SURGOUT 09:54
PROVIDERS: Visit Provider Anesthesiology
DX: M46.1 Sacroiliitis, not elsewhere classified (principal)
CPT/HCPCS: 27096; Q9966

== ENCOUNTER 2024-01-24 12:53 | Outpatient (OUT) | payer OTHER, SELFPAY ==
--- NOTE | 2024-01-24 | CONS_ITS ---
CONSULTATION DATE: 01/24/2024 TO: < > CHIEF COMPLAINT: Right mid back pain. HISTORY: She rates it an 8/10, deep aching character, burning component. Seems to increase with activities such as standing, walking and performing transitioning maneuvers. Lifting maneuvers are also quite uncomfortable. She denies any change in bowel and bladder habits and describes progressive tingling, numbness and possible weakness of the right leg. CURRENT MEDICATION: Includes baclofen 10 mg t.i.d., gabapentin 600 mg t.i.d., tramadol 100 mg b.i.d. She has also been on diclofenac 75 mg b.i.d. Her REAGAN on today?s visit is 74. EXAM: Notable for patient having dysesthesia and hyperesthesia long the right T11-12, T12-L1 dermatomes on the right side. Patient had weakness, 3/5 strength involving the right iliopsoas, depressed right patellar reflex. Reverse straight leg raise was equivocally positive. Significant myofascial dysfunction involving the right erector spinae muscle with ?dystonic changes? resulting in thoracolumbar extension, as well as mild rotation to the right. 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 of the right erector spinae muscle. RECOMMENDATIONS: I have recommended a diagnostic right T11-12, T12-L1 nerve root injection/transforaminal epidural injection under fluoroscopic guidance. Also obtain a lumbar spine film, PA and lateral views. I have gone over the details of the procedure with the patient. All her questions were answered. She agrees to proceed with the outlined plan. As part of providing excellent, safe, comprehensive care, the following was completed at our patient's visit: 1. A medication reconciliation and review to ensure accurate knowledge of current/active medications, including asking our patients to inform us about any mjgg-vxq-kifgpsa medications or herbal remedies/nutritional supplements/alternative remedies. 2. A review to specifically ensure our patients have had annual screening for: elevated body mass index (BMI, see intake chart for exact total), tobacco use, screening for depression, and screening for unhealthy alcohol use. When screening is concerning, patients are provided with education and the specific recommendation to discuss the concerning health issue and treatment options with their primary care provider. JARVIS
== END 2024-01-24 12:54 | disposition home or self-care (01) ==
LOC: PM 12:53
PROVIDERS: Visit Provider Anesthesiology Pain Medicine
DX: M54.14 Radiculopathy, thoracic region (principal); M54.16 Radiculopathy, lumbar region; M47.816 Spondylosis without myelopathy or radiculopathy, lumbar region; M79.18 Myalgia, other site
CPT/HCPCS: 72100; G0463

== ENCOUNTER 2024-01-24 13:43 | Outpatient (OUT) | payer OTHER, SELFPAY ==
--- NOTE | 2024-01-24 13:47 | XR_ITS ---
The [address] [address] Patient Name: VIRGIL WARNER MRN: [id number] date: 1975 Sex: F Assigned Patient Location: [facility] Current Patient Location: Accession/Order Number: [id number] Exam Date: 01/24/2024 13:50 Report Date: 01/25/2024 07:10 At the request of: MINERVA MCGHEE Procedure: XR lumbar spine 2-3V EXAMINATION: XR lumbar spine 2-3V HISTORY: Thoraco Lumbar Neuritis COMPARISON: No relevant comparison available. FINDINGS: BONES: Normal alignment with no acute fracture or spondylolisthesis. Mild degenerative spondylosis and facet osteoarthropathy. DISC SPACES: Normal. No significant disc height narrowing, subluxation, or endplate abnormality. PARASPINOUS: Negative. No paraspinous abnormality is seen. OTHER: Scattered vascular calcifications. Posterior BB markers indicate the T12 vertebral body XR/XR lumbar spine 2-3V IMPRESSION: Mild degenerative changes Electronically authenticated by: PHILLIP CAMACHO Date: 01/25/2024 07:10
== END 2024-01-24 13:44 | disposition home or self-care (01) ==
PROVIDERS: Visit Provider Anesthesiology Pain Medicine
DX: M54.14 Radiculopathy, thoracic region (principal); M54.16 Radiculopathy, lumbar region; M47.816 Spondylosis without myelopathy or radiculopathy, lumbar region
CPT/HCPCS: 72100

== ENCOUNTER 2024-03-13 14:25 | Outpatient (OUT) | payer OTHER, SELFPAY ==
--- NOTE | 2024-03-13 | CONS_ITS ---
CONSULTATION DATE: 03/13/2024 TO: Ryder Lemos CNP CHIEF COMPLAINT: Includes bilateral groin pain, left side worse than the right side. HISTORY: She reports the pain being 9/10, deep aching pain with a tight component. She appears to complain of sharp pain, increased with activities such as weight bearing maneuvers. She feels most comfortable in the semi- recumbent position. Denies any change in bowel and bladder habits or new sensorimotor changes in the lower extremities. CURRENT MEDICATION: Includes diclofenac 75 mg b.i.d., baclofen 10 mg t.i.d., gabapentin 600 t.i.d., tramadol 100 mg b.i.d. EXAM: Notable for patient having no clinical radiculopathy or myelopathy involving the lower extremities. She did have positive bilateral FABERE?s sign, most significant on the left than the right side. IMPRESSION: Our impression is patient with chronic pain secondary to bilateral hip joint related pain clinically. She appears to have some soft tissue dysfunction involving the iliotibial band. RECOMMENDATIONS: I have recommended she consider discontinuing baclofen secondary to ineffectiveness and will trial her on Zanaflex 4 mg pills, half to one t.i.d. Will obtain bilateral hip films. See the patient back in the office in 2-4 weeks? time or sooner if needed. As part of providing excellent, safe, comprehensive care, the following was completed at our patient's visit: 1. A medication reconciliation and review to ensure accurate knowledge of current/active medications, including asking our patients to inform us about any nwcx-bdv-rchraev medications or herbal remedies/nutritional supplements/alternative remedies. 2. A review to specifically ensure our patients have had annual screening for: elevated body mass index (BMI, see intake chart for exact total), tobacco use, screening for depression, and screening for unhealthy alcohol use. When screening is concerning, patients are provided with education and the specific recommendation to discuss the concerning health issue and treatment options with their primary care provider JARVIS
== END 2024-03-13 14:26 | disposition home or self-care (01) ==
PROVIDERS: Visit Provider Anesthesiology Pain Medicine
DX: M25.552 Pain in left hip (principal); M25.551 Pain in right hip; M16.11 Unilateral primary osteoarthritis, right hip; G89.29 Other chronic pain
CPT/HCPCS: 73522; G0463

== ENCOUNTER 2024-03-13 15:50 | Outpatient (OUT) | payer OTHER, SELFPAY ==
--- NOTE | 2024-03-13 | XR_ITS ---
[address] [address] Patient Name: VIRGIL WARNER MRN: [id number] date: 1975 Sex: F Assigned Patient Location: [facility] Current Patient Location: Accession/Order Number: [id number] Exam Date: 03/13/2024 16:05 Report Date: 03/15/2024 09:28 At the request of: MINERVA MCGHEE Procedure: XR hip AJITH EXAMINATION: XR hip AJITH HISTORY: Bilateral hip pain , chronic COMPARISON: XR hip right 05/02/2013 FINDINGS: RIGHT FINDINGS: BONES: Tiny degenerative ossified along superior acetabulum. No significant joint space narrowing, articular surface irregularity, or bone lesion. SOFT TISSUES: No visible soft tissue swelling. OTHER: Negative. LEFT FINDINGS: BONES: No significant arthropathy or acute abnormality. SOFT TISSUES: No visible soft tissue swelling. OTHER: Negative. XR/XR hip AJITH IMPRESSION: RIGHT CONCLUSION: Minimal degenerative joint disease. LEFT CONCLUSION: Unremarkable left hip. Electronically authenticated by: SHARON GUILLEN Date: 03/15/2024 09:28
== END 2024-03-13 15:51 | disposition home or self-care (01) ==
LOC: RAD 15:54
PROVIDERS: Visit Provider Anesthesiology Pain Medicine
DX: M25.552 Pain in left hip (principal); M25.551 Pain in right hip; M16.11 Unilateral primary osteoarthritis, right hip
CPT/HCPCS: 73522

== ENCOUNTER 2024-04-10 13:56 | Outpatient (OUT) | payer OTHER, SELFPAY ==
--- NOTE | 2024-04-10 | CONS_ITS ---
CONSULTATION DATE: 04/10/2024 TO: < > (unclear if Dr. Ferraro or Dr. Villarreal?) CHIEF COMPLAINT: Severe bilateral lower back pain, worse on the right than left side. HISTORY: Describes 8/10 pain, a pressure type pain with a sharp component, increased with activities such as standing, walking and performing transitioning maneuvers. She feels most comfortable in the semi-recumbent position. Denies any change in bowel and bladder habits or new sensorimotor changes in the lower extremities. MEDICATION: Current medication includes Zanaflex 4 mg pills one pill b.i.d., tramadol 50 mg two pills b.i.d. as needed, gabapentin 600 t.i.d. ropinirole 4 mg daily. Her REAGAN was 72% today. EXAM: Notable for patient having no clinical radiculopathy or myelopathy involving the lower extremities. Patient had severe pain with lumbar facet loading maneuvers occurring bilaterally from L4-S1, and associated with myofascial spasm with myalgia involving the erector spinae muscle occurring bilaterally. IMPRESSION: Our impression is patient with chronic pain secondary to lumbosacral spondylosis, facet loading pain clinically. RECOMMENDATIONS: I recommend that patient consider bilateral diagnostic L4-5 and L5-S1 medial branch block under fluoroscopic guidance. We check her liver profile secondary to her medication use. Independent aquatic therapy was recommended and to increase her Zanaflex 4 mg pills two pills b.i.d. As part of providing excellent, safe, comprehensive care, the following was completed at our patient's visit: 1. A medication reconciliation and review to ensure accurate knowledge of current/active medications, including asking our patients to inform us about any soeh-aom-xcvvvit medications or herbal remedies/nutritional supplements/alternative remedies. 2. A review to specifically ensure our patients have had annual screening for: elevated body mass index (BMI, see intake chart for exact total), tobacco use, screening for depression, and screening for unhealthy alcohol use. When screening is concerning, patients are provided with education and the specific recommendation to discuss the concerning health issue and treatment options with their primary care provider. JARVIS
== END 2024-04-10 13:57 ==
PROVIDERS: Visit Provider Anesthesiology Pain Medicine
DX: M47.816 Spondylosis without myelopathy or radiculopathy, lumbar region (principal); M62.838 Other muscle spasm
CPT/HCPCS: G0463

== ENCOUNTER 2024-04-24 09:28 | Day surgery (SDC) | payer OTHER, SELFPAY ==
[2024-04-24 09:38] VITALS: BP 103/67; PULSE 87; TEMP 36.5; O2SAT 95
[2024-04-24 09:53] LABS: Glucometer 143 mg/dL (74-106)
[2024-04-24 10:21] VITALS: BP 111/57; BP 115/61; PULSE 82; O2SAT 94; O2SAT 95
[2024-04-24] MEDS: BUPIVACAINE HCL 0.25% PF 25 MG/10 ML VIAL 6 ML INJ (10:26)
--- NOTE | 2024-04-24 10:33 | W.PM.PROCNOT ---
Date of procedure: 04/24/24 Pre-op diagnosis: Lumbar spondylosis Post-op diagnosis: same as pre-op Procedure: Bilateral lumbar 4-5, 5-S1 medial branch block Under fluoroscopic guidance Solution injected: 2millilitersMarcaine 0.25% Anesthesia :none Immediate complications none Time out process compliant After informed consent obtained from the patient placed in the Prone proposition . area was prepped and draped in a sterile fashion using Cloraprep .25 gauge spinal needle inserted over each of the above mentioned target areas . [place] were directed towards the target under fluoroscopic guidance . after encountering each of the targets , no indication of intravascular intraneuronal or intrathecal needle tip placement. Then 0 .5 to 1 Milliliter was injected at each level. [place] removed postoperatively. patient transferred to recovery in stable condition to be discharged home after meeting criteria Anesthesia: Local Surgeon: Jurgen Brady Condition: stable Disposition: PACU
== END 2024-04-24 10:28 | disposition home or self-care (01) ==
LOC: SURGOUT 09:28
PROVIDERS: Visit Provider Anesthesiology Pain Medicine
DX: M47.816 Spondylosis without myelopathy or radiculopathy, lumbar region (principal)
CPT/HCPCS: 36415; 64493; 64494; 82948; J0665

== ENCOUNTER 2024-05-15 14:10 | Outpatient (OUT) | payer OTHER, SELFPAY ==
--- NOTE | 2024-05-15 | CONS_ITS ---
CONSULTATION DATE: 05/15/2024 CHIEF COMPLAINT: Includes severe bilateral lower back pain, right worse than left side. HISTORY: She rates the pain an 8/10, sharp in character, increased with activities such as standing, walking and performing transitioning maneuvers. She has recently undergone her first diagnostic bilateral medial branch block targeting the L4-5 and L5-S1 levels. She reports having at least 80% relief, starting in the immediate post procedural period, lasting for several hours, with recurrence of pain back to her baseline. MEDICATION: Current medication includes diclofenac 75 mg b.i.d., tramadol 50 mg, two pills b.i.d.; Zanaflex 4 mg pills, two in the morning, one in the afternoon, two at bedtime; gabapentin 600 t.i.d. and her REAGAN is 70% on today?s visit. EXAMINATION: Notable for patient having no clinical radiculopathy or myelopathy involving the lower extremities. She has severe pain with lumbar facet loading maneuvers occurring bilaterally from L4 through S1, worse on the right than left side, with associated myofascial spasm. IMPRESSION: Patient appears to have chronic pain secondary to lumbosacral spondylosis, facet joint loading pain clinically. Has had a medial branch block targeting the L4-5, L5-S1 levels with 80% reduction of pain symptoms. She has failed conservative therapy. 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 In the interim, I have asked her to discontinue Zanaflex secondary to ineffectiveness. Will trial her on Robaxin 500 b.i.d. As part of providing excellent, safe, comprehensive care, the following was completed at our patient's visit: 1. A medication reconciliation and review to ensure accurate knowledge of current/active medications, including asking our patients to inform us about any suvv-bbn-srzoasu medications or herbal remedies/nutritional supplements/alternative remedies. 2. A review to specifically ensure our patients have had annual screening for: elevated body mass index (BMI, see intake chart for exact total), tobacco use, screening for depression, and screening for unhealthy alcohol use. When screening is concerning, patients are provided with education and the specific recommendation to discuss the concerning health issue and treatment options with their primary care provider. JARVIS
== END 2024-05-15 14:11 | disposition home or self-care (01) ==
LOC: PM 14:10
PROVIDERS: Visit Provider Anesthesiology Pain Medicine
DX: M47.816 Spondylosis without myelopathy or radiculopathy, lumbar region (principal); M54.50 Low back pain, unspecified
CPT/HCPCS: G0463

== ENCOUNTER 2024-06-11 09:15 | Day surgery (SDC) | payer OTHER, SELFPAY ==
[2024-06-11 09:54] VITALS: BP 106/60; PULSE 93; TEMP 36.6; O2SAT 93
[2024-06-11 10:19] VITALS: BP 118/64; PULSE 104; O2SAT 96
[2024-06-11 10:21] VITALS: BP 115/62; PULSE 103; O2SAT 97
[2024-06-11] MEDS: LIDOCAINE HCL 2% 400 MG/20 ML MDV 15 ML INJ (10:22)
[2024-06-11] MEDS: BUPIVACAINE HCL 0.25% PF 25 MG/10 ML VIAL INJ (10:22)
--- NOTE | 2024-06-11 10:22 | W.PM.PROCNOT ---
Date of procedure: 06/11/24 Pre-op diagnosis: Pain due to lumbar spondylosis without myelopathy Post-op diagnosis: same as pre-op Procedure: Procedure: Bilateral L4-5, L5-S1 medial branch block Medications: Bupivacaine 0.25% 6cc The patient was seen and examined in the preoperative holding area.? An informed consent was obtained and placed on the chart.? The patient was brought to the medical procedure unit and placed in the prone position.? A timeout was completed verifying correct patient, procedure site, positioning, plan, and special equipment.? Using aseptic technique, the needle was placed at left L4. Under direct fluoroscopic visualization a Quincke-tipped spinal needle was advanced to the junction of the superior articulating process with the transverse process at the designated medial branch segment.? Preceded by negative aspiration, the above-mentioned injectate was placed in 1 mL aliquots.? The procedure was repeated at left L5, S1.? The needle was removed and insertion site was covered. The same procedure, at the same levels, was completed on the right side. The patient was taken to the postprocedural recovery area and monitored for an appropriate length of time before found suitable for discharge in the company of a responsible adult. Anesthesia: Local Surgeon: Alexander Story Pathology: none sent Condition: stable Disposition: no change
== END 2024-06-11 10:28 | disposition home or self-care (01) ==
LOC: SURGOUT 09:15
PROVIDERS: Visit Provider Anesthesiology
DX: M47.816 Spondylosis without myelopathy or radiculopathy, lumbar region (principal)
CPT/HCPCS: 64493; 64494; J0665

== ENCOUNTER 2024-06-21 13:19 | Outpatient (OUT) | payer OTHER, SELFPAY ==
--- NOTE | 2024-06-21 14:15 | P.CN_ITS ---
Consult Note: HPI Data of Consult Patient: known to practice within the last 3 years Requesting Physician: Suzi Longoria NP Primary Care Provider: Non-Staff Physician, Family Provider: DMRAMANA Consult Narrative Reason for consult: f/u Narrative: Risa Joshi a 48 year old female presents for follow up on chronic back pain. Patient has had numerous MBB & RFA historically. Patient continues to have intense middle to low back pain, today pain 10/10.Patient has a complex hx complicated with FM. Pain is intense and constant, increased with standing walking sitting and activity. Patient has been following with neurology and rheumatology. Patient trialed marijuana with benefit to low back pain but no benefit to other pain. has completed bilateral L4-5 L5-S1 medial branch RFA with >80% improvement immediately following and 6 hours following. patient would like to proceed with RFAs. cc:: CC: Suzi Longoria NP Review of Systems ROS Status of ROS 10 or more systems reviewed and unremark able except as noted in history and below Musculoskeletal Reports: back pain, neck pain and extremity pain PFSH PFSH Medical History S/P extracorporeal shock wave therapy ?Z98.890 - Other specified postprocedural states (ICD-10) Ureteral stent displacement ?T83.122A - Displacement of indwelling ureteral stent, initial encounter (ICD-10) Goiter ?E04.9 - Nontoxic goiter, unspecified (ICD-10) RSD (reflex sympathetic dystrophy) ?G90.50 - Complex regional pain syndrome I, unspecified (ICD-10) TMJ (dislocation of temporomandibular joint) ?S03.00XA - Dislocation of jaw, unspecified side, initial encounter (ICD-10) Upper back pain ?M54.9 - Dorsalgia, unspecified (ICD-10) Neck pain ?M54.2 - Cervicalgia (ICD-10) Low back pain ?M54.50 - Low back pain, unspecified (ICD-10) Fibromyalgia ?M79.7 - Fibromyalgia (ICD-10) Neuropathy ?G62.9 - Polyneuropathy, unspecified (ICD-10) Hyperthyroidism ?E05.90 - Thyrotoxicosis, unspecified without thyrotoxic crisis or storm (ICD-10) Heart palpitations ?R00.2 - Palpitations (ICD-10) Angina at rest ?I20.8 - Other forms of angina pectoris (ICD-10) Kidney stone ?N20.0 - Calculus of kidney (ICD-10) Asthma ?J45.909 - Unspecified asthma, uncomplicated (ICD-10) Smoker ?F17.200 - Nicotine dependence, unspecified, uncomplicated (ICD-10) Hypertension ?I10 - Essential (primary) hypertension (ICD-10) High cholesterol ?E78.00 - Pure hypercholesterolemia, unspecified (ICD-10) Diabetes ?E11.9 - Type 2 diabetes mellitus without complications (ICD-10) Surgical History S/P insertion of spinal cord stimulator ?Z96.89 - Presence of other specified functional implants (ICD-10) H/O: hysterectomy ?Z90.710 - Acquired absence of both cervix and uterus (ICD-10) S/P shoulder surgery ?Z98.890 - Other specified postprocedural states (ICD-10) Meds Home Medications and Allergies Home Medications ?Medication ?Instructions ?Recorded ?Confirmed ?Type aspirin 81 mg tablet,delayed 81 mg PO DAILY 02/25/23 06/11/24 History release (Adult Low Dose Aspirin) atorvastatin 80 mg tablet (Lipitor) 80 mg PO DAILY 02/25/23 06/11/24 History diclofenac sodium 75 mg 75 mg PO BID 02/25/23 06/11/24 History tablet,delayed release duloxetine 60 mg capsule,delayed 60 mg PO DAILY 02/25/23 06/11/24 History release fenofibrate micronized PO QDAY 02/25/23 History fluticasone propionate 50 1 spray intranasal DAILY 02/25/23 06/11/24 History mcg/actuation nasal spray,suspension (Flonase Allergy Relief) furosemide 20 mg tablet (Lasix) 20 mg PO DAILY 02/25/23 06/11/24 History insulin lispro 200 unit/mL (3 mL) 60 unit subcut TID 02/25/23 06/11/24 History subcutaneous pen (Humalog KwikPen U-200 Insulin) levocetirizine 5 mg tablet (Xyzal) 5 mg PO DAILY 02/25/23 06/11/24 History lisinopril 10 mg tablet 10 mg PO DAILY 02/25/23 06/11/24 History metoprolol succinate 50 mg PO QDAY 02/25/23 06/11/24 History montelukast 10 mg tablet 10 mg PO QPM 02/25/23 06/11/24 History (Singulair) ropinirole 4 mg tablet 4 mg PO DAILY 02/25/23 06/11/24 History albuterol sulfate 90 mcg/actuation 2 inh inhalation TID PRN shortness 05/31/23 06/11/24 History aerosol inhaler of breath or wheezing insulin regular hum U-500 conc 500 120 unit subcut BID 07/12/23 06/11/24 History unit/mL(3 mL) subcut pen (Humulin R U-500 (Conc) Insulin Kwikpen) tramadol 50 mg tablet 100 mg (2 x 50 mg) PO BID PRN pain 01/04/24 06/11/24 Rx #120 tabs gabapentin 600 mg tablet 600 mg PO TID #90 tabs 02/14/24 06/11/24 Rx tizanidine 4 mg tablet 4 mg PO TID 04/24/24 06/11/24 History tramadol 50 mg tablet 100 mg (2 x 50 mg) PO BID PRN pain 06/11/24 Rx #120 tabs Allergies Allergy/AdvReac Type Severity Reaction Status Date / Time Penicillins Allergy Unknown Unknown Verified 06/11/24 10:02 Exam Narrative Exam Narrative: diffuse myofascial pain and tenderness, chronic fatigue Constitutional Documenting provider has reviewed patient's vital signs: yes Common normals: no apparent distress, oriented x3, healthy appearing, alert and well nourished General appearance: ill appearing Nutritional appearance: obese HENMT Common normals: normocephalic, hearing grossly normal bilaterally and moist oral mucous membranes Head and scalp: normocephalic Eye Common normals: PERRL Pupil: PERRL Neck & C-Spine Common normals: full ROM General: normal visual inspection Chest Common normals: inspection of chest normal Respiratory Common normals: normal respiratory effort, no retractions and no use of accessory muscles Back & Pelvis Thoracic spine/upper back: ROM limited, pain with ROM, thoracic spinal tenderness and paraspinal muscle tenderness Lumbar spine/lower back: ROM limited, pain with ROM, lumbar spinal tenderness, paraspinal muscle tenderness and straight leg raise negative bilaterally Sacroiliac joints: SI joint(s) abnormal Other: positive facet loading, pain over L4-S1 facet joints bilateral sij positive nathan(patricks), gaenslens, thigh thrust, compression test strength 5/5 in BLE diffuse pain/tenderness throughout spine Extremity Common normals: normal to inspection and full ROM Neuro Common normals: oriented x3, CN's II-XII intact bilaterally, moves all extremities, no focal motor deficits, no sensory deficits noted and deep tendon reflexes 2+ bilaterally Sensorium/orientation: alert Motor exam: strength 5/5 throughout and no movement abnormalities noted Psych Common normals: mental status grossly normal, thought process normal, cooperative, affect normal, speech normal and activity/motor behavior normal Speech: normal speech Thought process: normal thought process Results Additional Findings Additional findings: If on a controlled substance or opioids, I have checked an [place] report on this patient and there are no aberrancies noted in the prescribing history.??If on a controlled substance or opioid a drug screen was completed and reviewed within the last year, and if there has not been a drug screen completed we ordered one today to monitor higher risk, state monitored pain medication use. As part of providing excellent, safe, comprehensive care, the following was completed at our patient's visit: 1. A medication reconciliation and review to ensure accurate knowledge of current/active medications, including asking our patients to inform us about any jhke-rpi-rlegiwy medications or herbal remedies/nutritional supplements/alternative remedies. 2. A review to specifically ensure our patients have had annual screening for screening for depression, screening for tobacco use, and screening for unhealthy alcohol use. For concerning screenings had a discussion with the patient, provided patient education, and recommended follow-up with primary care provider when appropriate. If patient noted with a risk of falling, they received education on strength, gait, and balance training to prevent future risk of falling. Assessment and Plan Assessment and Plan (1) Lumbar spondylosis: (2) Myofascial pain: (3) Sacroiliitis: (4) Chronic prescription opiate use: (5) Fibromyalgia: Plan medrol dose pack for FM flare decrease gabapentin 600mg BID 1 week then once daily one week then stop, start pregabalin 50mg TID as tolerated for FM. risks vs benefits reviewed increase robaxin 500-1000mg TID PRN pain/spasms right then left L4-5 l5-S1 facet joint RFA with iv sedation due to inability to safely tolerate procedure due to anxiety, discomfort, and diffuse pain/sensitivity f/u 1 month after RFAs complete
== END 2024-06-21 13:20 | disposition home or self-care (01) ==
PROVIDERS: Visit Provider Nurse Practitioner
DX: M47.816 Spondylosis without myelopathy or radiculopathy, lumbar region (principal); M79.18 Myalgia, other site; M46.1 Sacroiliitis, not elsewhere classified; Z79.891 Long term (current) use of opiate analgesic
CPT/HCPCS: G0463

== ENCOUNTER 2024-07-10 07:40 | Day surgery (SDC) | payer OTHER, SELFPAY ==
--- OUTSIDE RECORDS SUMMARY | 2024-07-10 07:47 | XMS_ITS | CCD ---
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 [employer] Name Role Phone VAL SENIOR Unavailable Unavailable BURNS, JIHANAKKennethUMAR P Unavailable Unavailable AHMAD, SHOWKAT Unavailable Unavailable CASHMARIUSZ MUHAMMAD P Unavailable Unavailable VADIM MORATAYA Unavailable Unavailable Might, Vivian W Primary Care Provider [phone] Might, Vivian Primary Care Provider [phone] Might, [facility] Primary Care Provider [phone] Might, Vivian Primary Care Provider [phone] Might JOINTER MACHINE - YEAST WASHER, [facility] Primary Care Provider MIGHT, VIVIAN W Primary Care Unavailable CLAUDIA WILLETT Referring Unavailable Might JOINTER MACHINE - YEAST WASHER, Vivian Primary Care Provider Might JOINTER MACHINE - YEAST WASHER, Vivian Primary Care Provider Might JOINTER MACHINE - YEAST WASHER, [facility] Primary Care Provider Might JOINTER MACHINE - YEAST WASHER, Vivian Primary Care Provider Might JOINTER MACHINE - YEAST WASHER, Vivian Primary Care Provider NON STAFF Primary Care Provider UnavailMD Shiraz Joyner Attending Provider [phone] NON STAFF Primary Care Unavailable Shiraz Sherman Attending Unavailable Shiraz Sherman Admitting Unavailable NON STAFF Primary Care Unavailable Shiraz Sherman Attending Unavailable Shiraz Sherman Admitting Unavailable NON STAFF Primary Care Unavailable Sam Hidalgo Attending Unavailable Sam Hidalgo Admitting Unavailable NON STAFF Primary Care Unavailable Shiraz Sherman Admitting Unavailable Shiraz Sherman Attending Unavailable Shiraz Sherman Unavailable DR COREY KHANNA Attending Unavailable DR COREY KHANNA Admitting Unavailable MISC, DR GAFFNEY Primary Care Unavailable MISC, DR GAFFNEY Consulting Unavailable [place] ., DR COREY Bautista Consulting Unavailable AGUBOSIM, VANESSA Consulting Unavailable MISC, DR GAFFNEY Primary Care Unavailable [place] ., DR COREY Bautista Attending Unavailable [place] ., DR HUTCHINSON S Admitting Unavailable [place] ., DR COREY Bautista [...] vailable MISC, DR GAFFNEY Primary Care Unavailable HALKER .JULIETH Attending Unavailable LAKSHMIPATHY ., NARENDRANATH Consulting Kateryna [...] Consulting Unavailable VERN THORPE Consulting Unavailable Might JOINTER MACHINE - [place], Vivian W Primary Care Provider Might JOINTER MACHINE - [facility] Primary Care Provider Might JOINTER MACHINE-[facility] Un available [place] JOINTER MACHINE-YEAST WASHER, Rolan Grier Attending Unavailab le Chiquis JOINTER MACHINE-[place], Rolan Grier Attending Unavailab le Might [facility] Might JOINTER MACHINE-[facility] Un available [place] JOINTER MACHINE-[place], Rolan Grier Attending Unavailab le Might JOINTER MACHINE-[facility] Un available [place] JOINTER MACHINE-[place], Rolan Grier Attending Unavailab le Might [facility] available Jez MULLEN, Alexander Lemus Attending Unavailable Jez MULLEN, Alexander Lemus Attending Unavailable Might [facility] Un available Might JOINTER MACHINE-[facility] Un available Jez MULLEN, Alexander Lemus Attending Unavailable Might JOINTER MACHINE-YEAST WASHER, Vivian Mao Primary Care Un available [place] JOINTER MACHINE-YEAST WASHER, Rolan Grier Attending Unavailab le Chiquis JOINTER MACHINE-YEAST WASHER, Rolan Grier Attending Unavailab le Might JOINTER MACHINE-YEAST WASHER, Vivian Cavanaugh Primary Care Un available Might JOINTER MACHINE-YEAST WASHER, Vivian Cavanaugh Primary Care Un available [place] JOINTER MACHINE-YEAST WASHER, Rolan Grier Attending Unavailab le MIGHT, VIVIAN W Primary Care Unavailable MIGHT, VIVIAN W Primary Care Unavailable MIGHT, VIVIAN W Referring Unavailable MIGHT, VIVIAN W Primary Care Unavailable ROLAN SIM Referring Unavailable MIGHT, VIVIAN W Primary Care [...] Unavailable MIGHT, VIVIAN W Primary Care Unavailable SHARON TRUJILLO Referring Unavailable MIGHT, VIVIAN W Primary Care Unavailable MIGHT, VIVIAN W Primary Care Unavailable ANA BRUCE Referring Unavailable MIGHT, VIVIAN W Primary Care Unavailable LUCY ROCHA Referring Unavailable MIGHT, VVIIAN W Primary Care Unavailable ROXIE FERNÁNDEZ Referring Unavail able ROLAN SIM Referring Unavailable MIGHT, VIVIAN W Primary Care [...] Unavailable MIGHT, VIVIAN W Primary Care Unavailable JANIS, ANA Referring Unavailable MIGHT, VIVIAN W Primary Care Unavailable MIGHT, VIVIAN W Primary Care Unavailable MIGHT, VIVIAN W Primary Care Unavailable MIGHT, VIVIAN W Primary Care Unavailable MIGHT, VIVIAN W Primary Care Unavailable MIGHT, VIVIAN W Primary Care Unavailable MIGHT, VIVIAN W Primary Care Unavailable LAKSHMIDOM NARENDRANA Referring Unavail able MIGHT, VIVIAN W Primary Care Unavailable MIGHT, VIVIAN W Primary Care Unavailable CHANTE PABON Attending Unavailable ROLAN SIM Referring Unavailable MIGHT, VIVIAN W Primary Care Unavailable ROLAN SIM Referring Unavailable MIGHT, VIVIAN W Primary Care Unavailable MIGHT, VIVIAN W Primary Care Unavailable LUCY ROCHA Referring Unavailable SAM HIDALGO Referring Unavailable MIGHT, VIVIAN W Primary Care Unavailable MIGHT, VIVIAN W Referring Unavailable MIGHT, VIVIAN W Primary Care Unavailable MIGHT, VIVIAN W Referring Unavailable MIGHT, VIVIAN W Primary Care Unavailable Allergies Allergy Classification Reported Allergen(s) Allergy Type Date of Onset Reaction(s) Facility Penicillins (antibiotic) (10 sources) Penicillins Drug Allergy 3 [facility] (20 sources) Penicillins Propensity to adverse reactions to drug 3 [place], [place] (20 sources) Penicillins Propensity to adverse reactions to drug 3 [facility] (1 source) Penicillins Drug allergy (disorder) 2 [facility] Repository (2 sources) penicillAMINE Drug Allergy Unknown [place] Other (1 source) Penicillins Drug allergy (disorder) 6 [facility] Repository (1 source) Penicillin; Translations: [penicillin] Drug Allergy [facility] Repository Medications Current Medications Medication Drug Class(es) Dates Sig (Normalized) Sig (Original) Acetaminophen (14 sources) Start: 06-11-2023 acetaminophen (TYLENOL) tablet 650 mg take 1 tablet by fermin th every six hours as needed for pain acetaminophen (TYLENOL) 500 MG tablet Ta ke 1 tablet by mouth every 6 hours as needed for Pain Active acetaminophen 325 mg / HYDROcodone bitartrate 5 mg oral tablet (20 sources) Opioid Agonist Start: 08-06-2022 End: 08-06-2022 HYDROcodone-acetaminophen (NORCO) 5-325 MG per tablet 1 tablet Start: 04-23-2022 take 1 tablet by fermin th twice daily Hydrocodone-Acetaminophen Active 1 TAB P O Twice daily September 21, 2022 12:00am HYDROcodone-Acet aminophen 5-325 MG Oral for 30 Days Active [id number] 200 actuat albuterol 0.09 mg/actuat metered dose inhaler (20 sources) beta2-Adrenergic Agonist Start: 05-09-2024 take 2 puff(s) by mouth four times daily for wheezing albuterol sulfate HFA (PROVENTIL;VENTOLIN;PROAIR) 108 (90 Base) MCG/ACT inhaler Indications: Acute bronchitis, unspecified organism inhale 2 puffs by mouth and INTO THE LUNGS four times a day if needed for wheezing 8.5 g 2 05/09/2024 Active Start: 08-24-2023 take 2 puff(s) by mo ut four times daily for wheezing albuterol sulfate HFA (PROVENTIL;VENTOLIN;PROAIR) 108 (90 Base) MCG/ACT inhaler Indications: Acute bronchitis, unspecified organism inhale 2 puffs by mouth and INTO THE LUNGS four times a day if needed for wheezing 8.5 g 2 08/24/2023 Active Start: 06-11-2023 albuterol (PRO VENTIL) (2.5 MG/3ML) 0.083% nebulizer solution 2.5 mg Start: 06-11-2023 End: 06-11-2023 2.5 mg, Nebulization, EVERY 2 HOURS PRN, Starting on 06/11/23 at 0043, Until 06/11/23 at 0345, Wheezing Initiate RT Bronchodilator Protocol: Yes Start: 03-25-2023 take 2 puff(s) by mo [facility] four times daily for wheezing albuterol sulfate HFA (PROVENTIL;VENTOLIN;PROAIR) 108 (90 Base) MCG/ACT inhaler Indications: Acute bronchitis, unspecified organism inhale 2 puffs by mouth and INTO THE LUNGS four times a day if needed for wheezing 8.5 g 2 03/25/2023 Active Start: 09-21-2022 take 1 puff(s) by inhalation four times daily Albuterol Sulfate Active 2 PUFF INHALATI ON Four times daily September 21, 2022 12:00am Start: 08-23-2022 take 2 puff(s) by mo ut four times daily for wheezing albuterol sulfate HFA (PROVENTIL;VENTOLIN;PROAIR) 108 (90 Base) MCG/ACT inhaler Indications: Acute bronchitis, unspecified organism inhale 2 puffs by mouth and INTO THE LUNGS four times a day if needed for wheezing 8.5 g 2 08/23/2022 Active Start: 08-03-2021 take 2 puff(s) by inhalation four times daily as needed for wheezing albuterol sulfate HFA (VENTOLIN HFA) 108 (90 Base) MCG/ACT inhaler Indications: Acute bronchitis, unspecified organism Inhale 2 puffs into the lungs 4 times daily as needed for Wheezing 1 each 1 08/03/2021 Active Start: 04-28-2020 take 2 puff(s) by inhalation four times daily as needed for wheezing albuterol sulfate HFA (VENTOLIN HFA) 108 (90 Base) MCG/ACT inhaler Indications: Acute bronchitis, unspecified organism Inhale 2 puffs into the lungs 4 times daily as needed for Wheezing 1 Inhaler 0 04/28/2020 Active Start: 04-28-2020 take 2 puff(s) by inhalation four times daily as needed for wheezing albuterol sulfate HFA (VENTOLIN HFA) 108 (90 Base) MCG/ACT inhaler Indications: Acute bronchitis, unspecified organism Inhale 2 puffs into the lungs 4 times daily as needed for Wheezing 1 Inhaler 0 04/28/2020 Active take 1 puff(s) by inhalation every four hours as needed Albuterol Sulfate HFA 108 (90 Base) MCG/ACT 1 puff as needed Inhalation every 4 hrs Active albuterol 0.833 mg/ml / ipratropium bromide 0.167 mg/ml inhalation solution (3 sources) Anticholinergic, beta2-Adrenergic Agonist Start: 06-14-2023 ipratropium 0.5 mg-albuterol 2.5 mg (DUONEB) nebulizer solution 1 Dose Start: 06-11-2023 End: 06-14-2023 ipratropium 0.5 mg-albuterol 2.5 mg (DUONEB) nebulizer solution 1 Dose aluminum chloride 200 mg/ml topical solution (11 sources) Start: 09-28-2023 aluminum chlor luis enrique (DRYSOL) 20 % external solution Indications: Gustatory sweating Apply topically nightly. 60 mL 2 09/28/2023 Active atorvastatin 40 mg oral tablet (20 sources) HMG-CoA Reductase Inhibitor Start: 05-16-2024 take 1 tablet by mouth once daily at bedtime atorvastatin (LIPITOR) 40 MG tablet Indications: History of syncope , Essential hypertension , Tobacco abuse , Mixed hyperlipidemia Take 1 tablet by mouth nightly at bedtime. 90 tablet 3 05/16/2024 Active Start: 06-11-2023 take 80 mg by mouth [...] at bedtime 90 tablet 3 04/16/2022 Active baclofen 10 mg oral tablet (20 sources) gamma-Aminobutyric Acid-ergic Agonist Start: 06-18-2021 take 1 tablet by mouth three times daily baclofen (LIORESAL) 10 MG tablet Take 1 tablet by mouth 3 times daily 0 06/18/2021 Active Start: 06-18-2021 End: 06-11-2023 baclofen (LIORESAL) 10 MG ta blet 2 times daily 0 06/18/2021 Active Start: [...] Start: 12-08-2022 lactated ringers IV soln infusion cefdinir 300 mg oral capsule (1 source) Cephalosporin Antibacterial Start: 05-17-2024 End: 05-27-2024 take 1 capsule by mouth twice daily cefdinir (OMNICEF) 300 MG capsule Indications: Acute non-recurrent pansinusitis , Non-recurrent acute suppurative otitis media of left ear without spontaneous rupture of tympanic membrane Take 1 capsule by mouth 2 times daily for 10 days 20 capsule 05/17/2024 05/27/2024 Active cefTRIAXone (ROCEPHIN) 1,000 mg in sodium chloride [...] Active Start: 09-16-2020 take 1 capsule by [facility] twice daily celecoxib (CELEBREX) 100 MG capsule [...] Sensor (FREESTYLE KENA 14 DAY SENSOR) MISC 01/28/2021 Active Start: 01-28-2021 Continuous Blo od Gluc Sensor (FREESTYLE KENA 14 DAY SENSOR) MISC Start: 01-28-2021 Continuous Blo od Gluc Sensor (FREESTYLE KENA 14 DAY SENSOR) MISC apply 1 SENSOR TO THE BACK OF UPPER ARM REMOVE AND REPLACE every ... (REFER TO PRESCRIPTION NOTES). 0 01/28/2021 Active CPAP Machine MISC (13 sources) CPAP Machine MIS C by Does not apply route Active CPAP Machine MIS C by Does [...] by mouth twice a day with food 06/18/2021 Active dicyclomine hydrochloride 20 mg oral [...] capsule Take 1 capsule by mouth nightly 01/29/2021 Active Start: 07-02-2020 take 1 capsule by mo [facility] once daily in the evening DULoxetine (CYMBALTA) 30 MG extended release capsule take 1 capsule by mouth every evening 0 07/02/2020 Active empagliflozin 10 mg oral tablet (20 sources) Sodium-Glucose Cotransporter 2 Inhibitor Start: 06-12-2024 JARDIANCE 10 MG tablet 06/12/2024 Active Start: 06-11-2023 take 10 mg by mouth [...] JARDIANCE 10 mg daily orally Aug, Active erythromycin 0.005 mg/mg ophthalmic ointment (7 sources) Macrolide, Macrolide Antimicrobial Start: 09-23-2022 apply 3.5 g into the eye(s) every six hours erythromycin (ROMYCIN) 5 MG/GM ophthalmic ointment Indications: Acute bacterial conjunctivitis of right eye Place into the right eye every 6 hours 3.5 g 0 09/23/2022 Active estradiol 1 mg oral tablet (11 sources) Estrogen Start: 12-06-2023 take 1 tablet by mouth once daily estradiol (ESTRACE) 1 MG tablet Take 1 tablet by mouth daily 30 tablet 3 12/06/2023 Active fenofibrate 145 mg oral tablet (20 sources) Peroxisome Proliferator Receptor alpha Agonist Start: 08-23-2023 take 1 tablet by mouth once daily fenofibrate (TRICOR) 145 MG tablet Take 1 tablet by mouth daily 08/23/2023 Active Start: 06-11-2023 fenofibrate (T RIGLIDE) tablet 160 mg Start: 03-14-2023 take 1 [...] Start: 04-23-2019 take 1 capsule by mo uth once daily FLUoxetine (PROZAC) 40 MG capsule take 1 capsule by mouth once daily 90 capsule 1 04/23/2019 Active fluticasone propionate 0.05 mg/actuat metered dose nasal spray (20 sources) Corticosteroid Start: 09-23-2023 take 2 spray(s) nasal route once daily fluticasone (FLONASE) 50 MCG/ACT nasal spray Indications: Seasonal allergic rhinitis due to pollen instill 2 sprays into each nostril once daily 48 g 3 09/23/2023 Active Start: 06-11-2023 take 2 spray(s) nasa l route once daily 2 spray, Each Nostril, [...] 50 MCG/ACT Nasal for 30 Days Active FreeStyle Kena 14 Day Sensor - (2 sources) FreeStyle Kena 14 Day Sensor - apply 1 SENSOR TO THE BACK OF UPPER ARM REMOVE AND REPLACE every ... (REFER TO PRESCRIPTION NOTES). for 28 Active furosemide 20 mg oral tablet (20 sources) Loop Diuretic Start: 06-04-2024 take 1 tablet by mouth once daily furosemide (LASIX) 20 MG tablet Indications: History of syncope , Essential hypertension , Tobacco abuse , Mixed hyperlipidemia Take 1 tablet by mouth once daily 90 tablet 3 06/04/2024 Active Start: 05-16-2023 End: 05-15-2024 take 1 tablet [...] Active Start: 09-10-2019 take 2 tablets by [facility] once daily glipiZIDE (GLUCOTROL XL) 10 MG extended release tablet Indications: Diabetes mellitus type 2 with complications, uncontrolled (HCC) Take 2 tablets by mouth daily 180 tablet 0 09/10/2019 Active Start: 05-09-2019 take 2 tablets by mo [facility] once daily glipiZIDE (GLUCOTROL XL) 10 MG [...] tablet (20 sources) Histamine-1 Receptor Antagonist Start: 09-23-2023 take 1 tablet by mouth once daily in the evening levocetirizine (XYZAL) 5 MG tablet Indications: Seasonal allergic rhinitis due to pollen take 1 tablet by mouth every evening 90 tablet 3 09/23/2023 Active Start: 06-24-2020 take 1 tablet by fermin th once daily in the evening levocetirizine (XYZAL) [...] Mixed hyperlipidemia Take 1 tablet by mouth once daily 90 tablet 3 05/07/2024 Active Start: 11-25-2015 take 1 tablet by [...] Dizziness 30 tablet 0 07/13/2019 07/23/2019 Active methocarbamol 500 mg oral tablet (4 sources) Muscle Relaxant take 1 tablet by mouth four times daily methocarbamol (ROBAXIN) 500 MG tablet Take 1 tablet by mouth 4 times daily Active methylPREDNISolone 40 mg injection (1 source) Corticosteroid Start : 06-11 methylPREDNISolone sodium succ (SOLU-MEDROL) injection 40 mg 24 hr metoprolol succinate 50 mg extended release oral tablet (20 sources) beta-Adrenergic Tana Start : 08-04 take 1 tablet by mouth once daily, then take 1 tablet by mouth once daily in the evening metoprolol succinate (TOPROL XL) 25 MG extended release tablet Take 1 tablet by mouth daily Take 1 tablet every evening. 90 tablet 3 08/04/2023 Active Start: 08-04-2023 take 1 tablet by fermin th once daily in the morning metoprolol succinate (TOPROL XL) 50 MG extended release tablet Take 1 tablet by mouth daily Take 50 mg in the morning 90 tablet 3 08/04/2023 Active Start: 05-16-2023 take 1 tablet by fermin th at [...] tablet (20 sources) Leukotriene Receptor Antagonist Start: take 1 tablet by mouth at bedtime montelukast (SINGULAIR) 10 MG tablet Indications: Seasonal allergic rhinitis due to pollen , Exacerbation of asthma, unspecified asthma severity, unspecified whether persistent take 1 tablet by mouth at bedtime 90 tablet 3 02/06/2024 Active Start: 08-01-2023 take 1 tablet by fermin th once daily at bedtime montelukast (SINGULAIR) 10 MG tablet Indications: Seasonal allergic rhinitis due to pollen , Exacerbation of asthma, unspecified asthma severity, unspecified whether persistent Take 1 tablet by mouth nightly at bedtime. 90 tablet 1 08/01/2023 Active Start: 04-04-2019 take 1 tablet by fermin th at bedtime montelukast (SINGULAIR) 10 MG tablet [...] inhalation solution (16 sources) Cholinergic Nicotinic Agonist Start : 01-22 nicotine (NICOTROL) 10 MG inhaler Indications: Cigarette nicotine dependence without complication Inhale 1 puff into the lungs as needed for Smoking cessation 1 Inhaler 3 01/23/2020 Active NONFORMULARY (20 sources) NONFORMULARY Med ical Marijuana Card 0 Active nystatin 883191 unt/ml oral suspension (1 source) Polyene Antifungal Start : 09-23 End: 10-03 take 5 mL by mouth four times daily nystatin (MYCOSTATIN) [id number] UNIT/ML suspension Indications: Oral candidiasis Take 5 mLs by mouth 4 times daily for 10 days 200 mL 0 09/23/2022 10/03/2022 Active omeprazole 20 mg delayed release oral capsule (4 sources) Proton Pump Inhibitor Start : 05-17 End: 06-16 take 1 capsule by mouth once daily omeprazole (PRILOSEC) 20 MG delayed release capsule Indications: Gastroesophageal reflux disease without esophagitis Take 1 capsule by mouth Daily 90 capsule 3 06/13/2024 Active ondansetron (ZOFRAN-ODT) disintegrating tablet 4 mg (1 source) Start : 06-11 ondansetron (ZOFRAN-ODT) disintegrating tablet 4 mg pioglitazone 30 mg oral tablet (2 sources) Peroxisome Proliferator Receptor alpha Agonist, Peroxisome Proliferator Receptor gamma Agonist, Thiazolidinedione Start : 06-12 pioglitazone (ACTOS) 30 MG tablet 06/12/2024 Active predniSONE 10 mg oral tablet (2 sources) Start : 06-14 predniSONE (DELTASONE) 10 MG tablet 4 tabs daily for 3 days, 3 tabs daily for 3 days, 2 tabs daily for 3 days, 1 tab daily for 3 days 30 tablet 0 06/14/2023 Active tiZANidine 4 mg oral tablet (20 sources) Central alpha-2 Adrenergic Agonist Start : 03-13 tiZANidine (ZANAFLEX) 4 MG tablet Take 1 tablet by mouth 0 03/13/2024 Active Start: 02-21-2019 tiZANidine (ZA NAFLEX) 4 MG tablet 4 mg nightly 0 02/21/2019 Active traMADol hydrochloride 50 mg oral tablet (20 sources) Opioid Agonist Start: 10-06-2023 take 2 tablets by mouth twice daily traMADol (ULTRAM) 50 MG tablet Take 2 tablets by mouth 2 times daily. 10/06/2023 Active Start: 06-11-2023 End: 06-12-2023 traMADol (ULTRAM) tablet 50 mg Start: 09-21-2022 take 100 mg by mouth twice geraldo ly Tramadol Active 100 MG PO Twice daily September 21, 2022 12:00am Start: 09-20-2022 take 2 tablets by mo uth twice [...] tablet Take 1 tablet by mouth daily Active azithromycin (ZITHROMAX) 500 mg in 250 [...] 20 mg/ml oral suspension (1 source) Uncompetitive X-giuqct-J-aspartate Receptor Antagonist, Sigma-1 Agonist Start: 06-11-2023 take 5 mL by mouth every four hours as needed 5 mL, Oral, EVERY 4 HOURS PRN, Starting on 06/11/23 at 0043, Until Discontinued, Cough 0.4 ml enoxaparin sodium 100 mg/ml prefilled syringe (1 source) Low Molecular Weight Heparin Start: 06-11-2023 inject 40 mg by subcutaneous injection once daily 40 mg, SubCUTAneous, DAILY, First dose on 06/11/23 at 0900, Until Discontinued Indication of Use: Prophylaxis-DVT /PE famotidine 20 mg oral tablet (1 source) Histamine-2 Receptor Antagonist Start: 06-11-2023 take 20 mg by mouth twice daily 20 mg, Oral, 2 TIMES DAILY, First dose on 06/11/23 at 0100, Until Discontinued glucagon (rdna) 1 mg injection (2 sources) [...] Hum U-500 Conc (Humulin R U-500 (Conc) Kwikpen) 500 unit/mL (3 mL) insulin pen Active 120 UNIT SUBCUT Twice daily September 21, 2022 12:00am insulin regular human (HUMULIN R U-500) 500 UNIT/ML concentrated injection vial Inject into the skin 2 times daily (with meals) 110 Units AM,115 Units PM Active insulin regular human (HUMULIN R U-500) [...] SL tablet 0.3 mg polyethylene glycol 3350 [id number] mg powder for oral solution (1 source) [...] abdominal pain; Translations: [Abdominal pain] 07-09-2015 Episodic Complication of device; implant or graft (1 source) Pain due to other internal prosthetic devices, implants and grafts, initial encounter Episodic Diabetes mellitus with complications (20 sources) [...] single episode, unspecified] Onset: 01-31-2013 07-06-2015 Chronic Osteoarthritis (3 sources) Unspecified osteoarthritis, unspecified site; Translations: [Osteoarthritis of joint of left shoulder region] Onset: 04-06-2022 06-11-2024 Chronic Other aftercare (2 sources) Other continuous churn buttermaker (current) drug therapy; Translations: [Other continuous churn buttermaker (current) drug therapy] Onset: 04-12-2024 Episodic Other connective tissue disease (20 sources) Fibromyalgia; Translations: [Fibromyalgia] Onset: 01-31-2013 12-21-2017 Episodic Other connective tissue disease (2 sources) Myalgia, unspecified site; Translations: [Myalgia, unspecified site] Onset: 05-08-2024 Episodic Other connective tissue disease (1 source) Fibromyalgia; Translations: [Fibromyalgia] Onset: 04-16-2024 Episodic Other injuries and conditions due to [...] source) Rib pain; Translations: [Pleurodynia] Episodic Other nervous system disorders (2 sources) [...] [CHRONIC PAIN SYNDROME] Onset: 04-06-2022 Chronic Other nutritional; endocrine; and metabolic disorders (2 sources) Body mass index 30+ - obesity; Translations: [Body mass index (BMI) 33.0-33.9, adult] Chronic Other upper respiratory infections (2 sources) Chronic sinusitis, unspecified; Translations: [Recurrent sinusitis] Onset: 07-02-2024 07-02-2024 Chronic Other upper respiratory infections (3 sources) Acute recurrent pansinusitis; Translations: [Pansinusitis] Onset: 07-02-2024 07-02-2024 Episodic Peripheral and visceral atherosclerosis (1 source) Intermittent claudication; Translations: [Peripheral vascular disease, unspecified] Chronic Residual codes; unclassified (18 sources) Tobacco user; Translations: [Tobacco abuse] Onset: 12-21-2017 12-21-2017 Chronic Residual codes; unclassified (2 sources) Obstructive sleep apnea syndrome; Translations: [Obstructive sleep apnea (adult) (pediatric)] Chronic Residual codes; unclassified (3 sources) Obstructive sleep apnea (adult) (pediatric); Translations: [Obstructive sleep apnea (adult) (pediatric)] Onset: 08-04-2023 Chronic Residual codes; unclassified (1 source) Edema of lower leg ; Translations: [Localized edema] 12-07-2023 Episodic Spondylosis; intervertebral disc disorders; other back problems (19 sources) Degeneration of lumbar intervertebral disc; Translations: [Other intervertebral disc degeneration, lumbar region] Onset: 04-13-2022 Chronic Spondylosis; intervertebral disc disorders; other back problems (20 sources) Lumbago with sciatica; Translations: [Lumbago with sciatica, left side] Onset: 04-15-2022 Episodic Thyroid disorders (1 source) Goiter; Translations: [Thyromegaly] [...] [LOW BACK PAIN, UNSPECIFIED] Onset: 10-25-2022 Unclassified (1 source) Subacute cough; Translations: [Subacute cough] Onset: 10-14-2023 Unclassified (2 sources) Cough, unspecified; Translations: [Cough, unspecified] Onset: 08-04-2023 Past or Other Problems Problem Classification Problem Date Documented Da te Episodic/Chronic Administrative/social admission (4 sources) Counseling procedure with explicit context; Translations: [Tobacco abuse counseling] Onset: 08-04-2023 Episodic Anal and rectal conditions (20 sources) Rectal abscess; Translations: [Perirectal abscess] Onset: 12-20-2017 12-23-2017 Episodic Calculus of urinary tract (20 sources) Kidney stone; Translations: [Ureteric stone] Onset: 07-03-2013 Resolved: 12-21-2017 08-13-2013 Episodic Conditions associated with dizziness or vertigo (4 sources) Dizziness; Translations: [Dizziness and giddiness] Onset: 08-04-2023 Episodic Genitourinary symptoms and ill-defined conditions (20 sources) Carl hematuria; Translations: [Gross hematuria] Onset: 07-19-2013 07-19-2013 Episodic Malaise and fatigue (3 sources) Tired; Translations: [Other fatigue] Onset: 09-06-2023 Episodic Nonspecific chest pain (4 sources) Chest discomfort; Translations: [Other chest pain] Onset: 07-13-2023 Episodic Other aftercare (1 source) 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; 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] Onset: 06-11-2023 Episodic Other and unspecified benign neoplasm (20 sources) Benign neoplasm of skin of trunk; Translations: [Melanocytic nevi of trunk] Onset: 03-24-2022 03-24-2022 Episodic Other circulatory disease (3 sources) Orthostatic hypotension; Translations: [Orthostatic hypotension] Onset: 08-04-2023 Episodic Other connective tissue disease (20 sources) Pain in upper limb; Translations: [Pain in arm, unspecified] Onset: 01-31-2013 01-31-2013 Episodic Other connective tissue disease (1 source) Pain in right lower leg; Translations: [Pain in right lower leg] Onset: 12-27-2023 Episodic Other connective tissue disease (1 source) Pain in left lower leg; Translations: [Pain in left lower leg] Onset: 12-27-2023 Episodic Other connective tissue disease (2 sources) Spasm; Translations: [Other muscle spasm] Onset: 06-09-2023 06-11-2024 Episodic Other connective tissue disease (2 sources) Muscle pain; Translations: [Myalgia, other site] Onset: 12-08-2023 06-11-2024 Episodic Other diseases of kidney and ureters (20 sources) Hydronephrosis; Translations: [Unspecified hydronephrosis] Onset: 04-28-2016 Resolved: 12-21-2017 12-21-2017 Episodic Other injuries and conditions due to external causes (20 sources) Acute organ dysfunction due to systemic inflammatory response syndrome; Translations: [Systemic inflammatory response syndrome (SIRS) of non-infectious origin with acute organ dysfunction] Onset: 07-05-2015 07-08-2015 Episodic Other lower respiratory disease (3 sources) Shortness of breath; Translations: [Shortness of breath] Onset: 08-04-2023 Episodic Other non-traumatic joint disorders (20 sources) Multiple joint pain; Translations: [Pain in unspecified joint] Onset: 09-16-2020 09-16-2020 Episodic Other non-traumatic joint disorders (4 sources) Pain in left shoulder; Translations: [Pain in joint, shoulder region] Onset: 07-21-2023 Episodic Other nutritional; endocrine; and metabolic disorders (1 source) Abnormal weight gain; Translations: [Abnormal weight gain] Onset: 09-06-2023 Episodic Other screening for suspected conditions (not mental disorders or infectious disease) (20 sources) Liver function tests abnormal; Translations: [Abnormal results of liver function studies] Onset: 03-09-2021 Episodic Pancreatic disorders (not diabetes) (20 sources) Idiopathic acute pancreatitis; Translations: [Idiopathic acute pancreatitis without necrosis or infection] Onset: 07-06-2015 07-06-2015 Episodic Pneumonia (except that caused by tuberculosis or sexually transmitted disease) (15 sources) Infective pneumonia; Translations: [Pneumonia, unspecified organism] Onset: 06-10-2023 06-10-2023 Episodic Residual codes; unclassified (20 sources) Tobacco user; Translations: [Tobacco use] Onset: 12-21-2017 12-21-2017 Episodic Residual codes; unclassified (3 sources) Localized edema; Translations: [Localized edema] Onset: 12-07-2023 Episodic Residual codes; unclassified (3 sources) Personal history of other specified conditions; Translations: [Personal history of other specified conditions] Onset: 07-13-2023 Episodic Residual codes; unclassified (1 source) Pain, unspecified; Translations: [Pain, unspecified] Onset: 07-21-2023 Episodic Residual codes; unclassified (1 source) Tobacco use; Translations: [Tobacco use] Onset: 12-21-2017 Episodic Syncope (18 sources) Situational syncope; Translations: [Syncope and collapse] Onset: 06-11-2023 Episodic Unclassified (1 source) LOW BACK PAIN, UNSPECIFIED; Translations: [LOW BACK PAIN, UNSPECIFIED] Onset: 01-27-2023 Unclassified (1 source) Cough, unspecified; Translations: [Cough, unspecified] Onset: 08-04-2023 Results Test Name Value Interpretation Reference Range Facility CT SINUS WO CONTRASTon 07-03 CT SINUS WO CONTRAST EXAMINATION: CT OF THE SINUS WITHOUT CONTRAST 07/02/2024 3:22 pm TECHNIQUE: CT of the sinuses was performed without the administration of intravenous contrast. Multiplanar reformatted images are provided for review. Automated exposure control, iterative reconstruction, and/or weight based adjustment of the mA/kV was utilized to reduce the radiation dose to as low as reasonably achievable. COMPARISON: CT 06/16/2023, MRI per wire HISTORY: ORDERING SYSTEM PROVIDED HISTORY: Recurrent sinusitis TECHNOLOGIST PROVIDED HISTORY: Is the patient ?->No FINDINGS: SINUSES/MASTOIDS: The maxillary, sphenoid, ethmoid and frontal sinuses are essentially clear. Minimal scattered mucosal thickening with a possible tiny retention cyst in the left sphenoid sinus. No air-fluid levels to suggest acute sinusitis. The bilateral ostiomeatal units are patent. Ethmoid roofs are symmetric. Mild leftward deviation nasal septum. Poorly pneumatized/hypoplastic right frontal sinus. The mastoid air cells are well aerated. SOFT TISSUES: Visualized soft tissues demonstrate no acute abnormality. The visualized portion of the intracranial contents demonstrate no gross acute abnormality. IMPRESSION: No evidence of acute sinusitis. Interpreted by: Efra Sullivan MD Signed by: Efra Sullivan MD 07/03/24 Final result Normal [facility] CT Sinuses WO contraston No evidence of acute sinusitis. [facility] EXAMINATION: CT OF THE SINUS WITHOUT CONTRAST 07/02/2024 3:22 pm TECHNIQUE: CT of the sinuses was performed without the administration of intravenous contrast. Multiplanar reformatted images are provided for review. Automated exposure control, iterative reconstruction, and/or weight based adjustment of the mA/kV was utilized to reduce the radiation dose to as low as reasonably achievable. COMPARISON: CT 06/16/2023, MRI per wire HISTORY: ORDERING SYSTEM PROVIDED HISTORY: Recurrent sinusitis TECHNOLOGIST PROVIDED HISTORY: Is the patient ?->No FINDINGS: SINUSES/MASTOIDS: The maxillary, sphenoid, ethmoid and frontal sinuses are essentially clear. Minimal scattered mucosal thickening with a possible tiny retention cyst in the left sphenoid sinus. No air-fluid levels to suggest acute sinusitis. The bilateral ostiomeatal units are patent. Ethmoid roofs are symmetric. Mild leftward deviation nasal septum. Poorly pneumatized/hypoplastic right frontal sinus. The mastoid air cells are well aerated. SOFT TISSUES: Visualized soft tissues demonstrate no acute abnormality. The visualized portion of the intracranial contents demonstrate no gross acute abnormality. [facility] Efra Sullivan MD - 07/03/2024 EXAMINATION: CT OF THE SINUS WITHOUT CONTRAST 07/02/2024 3:22 pm TECHNIQUE: CT of the sinuses was performed without the administration of intravenous contrast. Multiplanar reformatted images are provided for review. Automated exposure control, iterative reconstruction, and/or weight based adjustment of the mA/kV was utilized to reduce the radiation dose to as low as reasonably achievable. COMPARISON: CT 06/16/2023, MRI per wire HISTORY: ORDERING SYSTEM PROVIDED HISTORY: Recurrent sinusitis TECHNOLOGIST PROVIDED HISTORY: Is the patient ?->No FINDINGS: SINUSES/MASTOIDS: The maxillary, sphenoid, ethmoid and frontal sinuses are essentially clear. Minimal scattered mucosal thickening with a possible tiny retention cyst in the left sphenoid sinus. No air-fluid levels to suggest acute sinusitis. The bilateral ostiomeatal units are patent. Ethmoid roofs are symmetric. Mild leftward deviation nasal septum. Poorly pneumatized/hypoplastic right frontal sinus. The mastoid air cells are well aerated. SOFT TISSUES: Visualized soft tissues demonstrate no acute abnormality. The visualized portion of the intracranial contents demonstrate no gross acute abnormality. IMPRESSION: No evidence of acute sinusitis. Cybera CT Sinuses WO contrastOrdere d By: Efra Sullivan on 07-03-2024 [facility] [employer] Work Phone: Basic Metabolic Panelon 10-0 Anion gap [Moles/Vol] 13 mmol/L 9 - 16 mmol/L [facility] Calcium [Mass/Vol] 9.7 mg/dL 8.6 - 10. 4 mg/dL [facility] Chloride [Moles/Vol] 101 mmol/L 98 - 10 7 mmol/L [facility] CO2 [Moles/Vol] 23 mmol/L 20 - 31 mmol/L [facility] Creatinine [Mass/Vol] 1.4 mg/dL High 0.50 - 0.90 mg/dL Cybera Est, Glom Filt Rate 48 Low - PINF [facility] [employer] Comment on above: These results are not [...] that affects renal tubular secretion. Glucose [Mass/Vol] 315 mg/dL High 74 - 99 mg/dL [facility] [employer] Interpretation and review of laboratory results Abnormal [facility] Potassium [Moles/Vol] 5.6 mmol/L High 3.7 - 5.3 mmol/L [facility] Sodium [Moles/Vol] 137 mmol/L 136 - 145 mmol/L [facility] Urea nitrogen [Mass/Vol] 29 mg/dL High 6 - 20 mg/dL [facility] Urea nitrogen/Creatinine [Mass ratio] 21 mg/mg High 9 - 20 [facility] Basic Metabolic Profon 07-02 Anion gap [Moles/Vol] 13 mmol/L Normal 9-16 [facility] Comment on above: Performed By: #### B MP #### [facility] [address] [place], [place] [id number] Kiln Loader: Phillip Camarena MD BUN/CRE Ratio 21 High 9- [facility] Comment on above: Performed By: #### B MP #### [facility] [address] [place], [place] [id number] Kiln Loader: Phillip Camarena MD Calcium [Mass/Vol] 9.7 mg/dL Normal 8.6-10.4 [facility] Comment on above: Performed By: #### B MP #### [facility] [address] [place], [place] [id number] Kiln Loader: Phillip Camarena MD Chloride [Moles/Vol] 101 mmol/L Normal 98-107 [facility] Comment on above: Performed By: #### B MP #### [facility] [address] [place], [place] [id number] Kiln Loader: Phillip Camarena MD CO2 [Moles/Vol] 23 mmol/L Normal 20-31 [facility] Comment on above: Performed By: #### B MP #### [facility] [address] [place] [address] Kiln Loader: Phillip Camarena MD Creatinine [Mass/Vol] 1.4 mg/dL High 0.50-0.90 [facility] Comment on above: Performed By: #### B MP #### [facility] [address] [place] [address] Kiln Loader: Phillip Camarena MD GFR/1.73 sq M.predicted among non-blacks MDRD (S/P/Bld) [Vol rate/Area] 48 mL/min/{1.73_m2} Low >60 [facility] Comment on above: Result Comment: These results [...] renal tubular secretion. Performed By: #### B MP #### [facility] [address] [place] [address] [place] [address] Kiln Loader: Phillip Camarena MD Glucose [Mass/Vol] 315 mg/dL High 74-99 [facility] Comment on above: Performed By: #### B MP #### [facility] [address] [place] [address] [place] [address] Kiln Loader: Phillip Camarena MD Potassium [Moles/Vol] 5.6 mmol/L High 3.7-5.3 [facility] Comment on above: Performed By: #### B MP #### [facility] [address] [place] [address] [place] [address] Kiln Loader: Phillip Camarena MD Sodium [Moles/Vol] 137 mmol/L Normal 136-145 [facility] Comment on above: Performed By: #### B MP #### [facility] [address] [place] [address] [place] [address] Kiln Loader: Phillip Camarena MD Urea nitrogen [Mass/Vol] 29 mg/dL High 6-20 [facility] Comment on above: Performed By: #### B MP #### [facility] [address] [place] [address] [place] [address] Kiln Loader: MD TARSHA Tran Radiology Study observation (narrative) Keagan Morse [facility] Diabetic Office/Clinic Noteo n 06-12-2024 Diabetic Office/Clinic Note [facility] [address] [place] [address] [place], [place], [id number] Risa Warner 1975 [phone] CGM DEVICE: FreeStyle Kena 2 Start Date of Recordin05/26/2024 End Date of Recordin06/08/2024 Date of Printout Date: 06/08/2024 Analysis and Interpretation of Data: Patient continues to use freestyle kena 2 CGM to monitor her blood glucose levels several times per day and over the last 14 days her average glucose of 225 with glucose management indicator of 8.7%. Patient is low very low 0% of the time in target range 29% of the time high 37% of the time very high 34% of the time. CGM data reviewed with patient at time of visit. CGM interpretation utilized to guide medication adjustments as appropriate. Electronically signed by ___ Rolan Dunn 06/12/24 14:10 EDT Normal [facility] Hemoglobin A1Con 06-09-2024 Glucose [Mass/Vol] 203 mg/dL Normal [facility] Comment on above: Result Comment: The ADA and AACC recommend providing the estimated average glucose result to permit better patient understanding of their HBA1c result. Performed By: #### C BC #### [facility] [address] [place] [address] Kiln Loader: Phillip Camarena MD #### FSH, E2 #### [facility] [address] [place] [address] Kiln Loader: Melvin Santoyo MD HbA1c (Bld) [Mass fraction] 8.7 % High 4.0-6.0 [facility] Comment on above: Performed By: #### C BC #### [facility] [address] [place] [address] Kiln Loader: Phillip Camarena MD #### FSH, E2 #### [facility] [address] [place], [place] [id number] Kiln Loader: Melvin Santoyo MD TSH w/reflex to FT4on 2023 Thyroid Stim. Horm. 0.62 uIU/mL Normal 0.27-4.20 [facility] Comment on above: Performed By: #### C BC #### [facility] [address] [place] [address] Kiln Loader: Phillip Camarena MD #### FSH, E2 #### [facility] [address] [place] [address] Kiln Loader: Melvin Santoyo MD TSH with Reflexon 06-08-2024 TSH Qn 0.62 m[IU]/L [facility] RNA Polymerase 3 IgGon 05-13 RNA Polymerase 3 IgG 4 Units Normal 0-19 [facility] Comment on above: Result Comment: (NOT E) INTERPRETIVE INFORMATION: RNA Polymerase III Antibody, IgG 19 Units or less ......Negative 20 - 39 Units .........Weak Positive 40 - 80 Units .........Moderate Positive 81 Units or greater ...Strong Positive The presence of RNA polymerase III IgG antibody, when considered in conjunction with other laboratory and clinical findings, is an aid in the diagnosis of systemic sclerosis (SSc) with increased incidence of skin involvement and renal crisis with the diffuse cutaneous form of SSc. RNA polymerase III IgG antibody occur in about 11-23 percent of SSc patients, and typically in the absence of anti-centromere and anti-Scl-70 antibodies. A negative result indicates no detectable IgG antibodies to the dominant antigen of RNA polymerase III and does not rule out the possibility of SSc. False-positive results may also occur due to non-specific binding of immune complexes. Strong clinical correlation is recommended. If clinical suspicion remains, consider additional testing for other antibodies associated with SSc, including centromere, Scl-70, U[employer]-BUSINESS OBJECTS DEVELOPER, PM/Scl, or Th/To. Performed By: [employer] [address] [place] [id number] [employer] Intern: Jesus Angeles MD, PhD CLIA Number: [id number] Performed By: #### B MP #### [facility] [address] [place] [address] Kiln Loader: Phillip Camarena MD Anti-Centromereon 05-10-2024 Anti-Centromere <0.4 Normal <7.0 [facility] Comment on above: Result Comment: Reference Range: <7.0 Negative 7.0-10.0 Equivocal >10.0 Positive Performed By: #### B MP #### [address] [place] [address] Kiln Loader: Phillip Camarena MD Anti-Sclerodermaon 4 Anti-Scleroderma <0.6 Normal <7.0 [facility] Comment on above: Result Comment: Reference Range: <7.0 Negative 7.0-10.0 Equivocal >10.0 Positive Performed By: #### B MP #### [address] [place] [address] Kiln Loader: Phillip Camarena MD Anti-S6UVGhm 05-10-2024 Anti-U1RNP 1.0 U/mL Normal <5.0 [facility] Comment on above: Result Comment: Reference Range: <5.0 Negative 5.0-10.0 Equivocal >10.0 Positive Performed By: #### B MP #### [facility] [address] [place] [address] Kiln Loader: Phillip Camarena MD Thyroid Antibodieson 024 Anti-Thy Peroxidase <4.0 Normal 0.0-25.0 [facility] Comment on above: Result Comment: Reference Range: <25.0 Negative 25.0-35.0 Equivocal >35.0 Positive When results are Equivocal, it is recommended to retest after 8-12 weeks. Performed By: #### B MP #### [facility] [address] [place] [address] Kiln Loader: Phillip Camarena MD Thyroglobulin Ab Qn [IU]/mL Normal 0.0-40.0 [facility] Comment on above: Result Comment: Reference Range: <40.0 Negative 40.0-60.0 Equivocal >60.0 Positive When results are Equivocal, it is recommended to retest after 8-12 weeks. Performed By: #### B MP #### [facility] [address] [place], [place] [id number] Kiln Loader: Phillip Camarena MD Creatine Kinaseon 05-08-2024 CK [Catalytic activity/Vol] 453 U/L High 26-192 [facility] Comment on above: Performed By: #### B MP #### [facility] [address] [place] [address] [place], [place] [id number] Kiln Loader: Phillip Camarena MD Liver Profileon 04-12-2024 ALT [Catalytic activity/Vol] 20 U/L Normal 5-33 [facility] Comment on above: Performed By: #### L IVP #### [facility] [address] [place] [address] [place], [place] [id number] Kiln Loader: Phillip Camarena MD AST [Catalytic activity/Vol] 17 U/L Normal <32 [facility] Comment on above: Performed By: #### L IVP #### [facility] [address] [place] [address] [place], [place] [phone] Kiln Loader: Phillip Camarena MD Albumin [Mass/Vol] 4.0 g/dL Normal 3.5-5.2 [facility] Comment on above: Performed By: #### L IVP #### [facility] [address] [place], [place] [phone] Kiln Loader: Phillip Camarena MD Albumin/Glob Ratio 1.5 Normal 1.0-2.5 [facility] Comment on above: Performed By: #### L IVP #### [facility] [address] [place], [place] [id number] Kiln Loader: Phillip Camarena MD Alkaline Phos 51 U/L Normal 35-104 [facility] Comment on above: Performed By: #### L IVP #### [facility] [address] [place], [place] [id number] Kiln Loader: Phillip Camarena MD Bilirubin [Mass/Vol] 0.2 mg/dL Low 0.3-1.2 [facility] Comment on above: Performed By: #### L IVP #### [facility] [address] [place] [address] [place], [place] [id number] Kiln Loader: Phillip Camarena MD Bilirubin, Indirect Can not be calculated Normal 0.0-1 .0 [facility] Comment on above: Performed By: #### L IVP #### [facility] [address] [place] [address] [place] [address] Kiln Loader: Phillip Camarena MD Bilirubin.indirect [Mass/Vol] mg/dL Normal <0.3 [facility] Comment on above: Performed By: #### L IVP #### [facility] [address] [place] [address] [place] [address] Kiln Loader: Phillip Camarena MD Protein [Mass/Vol] 6.7 g/dL Normal 6.4-8.3 [facility] Comment on above: Performed By: #### L IVP #### [facility] [address] [place] [address] [place], [place] [phone] Kiln Loader: Phillip Camarena MD Hemoglobin A1Con 03-24-2024 Glucose [Mass/Vol] 180 mg/dL Normal [facility] Comment on above: Result Comment: The ADA and AACC recommend providing the estimated average glucose result to permit better patient understanding of their HBA1c result. Performed By: #### C BC #### [facility] [address] [place] [address] Kiln Loader: Phillip Camarena MD #### FSH, E2 #### [address] [address] Kiln Loader: Melvin Santoyo MD HbA1c (Bld) [Mass fraction] 7.9 % High 4.0-6.0 [facility] Comment on above: Performed By: #### C BC #### [facility] [address] [place], [place] [phone] Kiln Loader: Phillip Camarena MD #### FSH, E2 #### [address] [address] Kiln Loader: Melvin Santoyo MD LDL Chol, Directon LDL Chol, Direct 48 mg/dL Normal [facility] Comment on above: Performed By: #### L DLDIR, LIPR #### [address] [address] Kiln Loader: Melvin Santoyo MD Lipid Profileon 03-24-2024 Cholesterol [Mass/Vol] 267 mg/dL High 0-199 [facility] Comment on above: Result Comment: Cholesterol Guidelines: <200 Desirable 200-240 Borderline >240 Undesirable Performed By: #### L DLDIR, LIPR #### [address] [address] Kiln Loader: Melvin Santoyo MD Cholesterol in HDL [Mass/Vol] 16 mg/dL Low >40 [facility] Comment on above: Result Comment: HDL Guidelines: <40 Undesirable 40-59 Borderline >59 Desirable Performed By: #### L DLDIR, LIPR #### [address] [address] Kiln Loader: Melvin Santoyo MD Cholesterol,LDL Can not be calculated Normal 0-100 [facility] Comment on above: Result Comment: LDL Guidelines: <100 Desirable 100-129 Near to/above Desirable 130-159 Borderline >159 Undesirable Direct (measured) LDL and calculated LDL are not interchangeable tests. Performed By: #### L DLDIR, LIPR #### [address] [address] Kiln Loader: Melvin Santoyo MD Cholesterol,VLDL Can not be calculated Normal [facility] Comment on above: Performed By: #### L DLDIR, LIPR #### [address] [address] Kiln Loader: Melvin Santoyo MD Cholesterol.total/Chol esterol in HDL [Mass ratio] 17.0 {ratio} Normal [facility] Comment on above: Performed By: #### L DLDIR, LIPR #### [address] [address] Kiln Loader: Melvin Santoyo MD Triglyceride [Mass/Vol] 2042 mg/dL High <150 [facility] Comment on above: Result Comment: Triglyceride Guidelines: <150 Desirable 150-199 Borderline 200-499 High >499 Very high Based on AHA Guidelines for fasting triglyceride, June 2012. Performed By: #### L ADAMAIR, LIPR #### [address] [address] Kiln Loader: Melvin Santoyo MD Microalb.,Random Uron 2023 Creatinine [Mass/Vol] 78.9 mg/dL Normal 28.0-217.0 [facility] Comment on above: Performed By: #### C BC #### [facility] [address] [place] [address] [place] [address] Kiln Loader: Phillip Camarena MD #### FSH, E2 #### [address] [address] Kiln Loader: Melvin Santoyo MD Microalb/Creat Ratio Can not be calculated Normal 0.0- 25.0 [facility] Comment on above: Performed By: #### C BC #### [facility] [address] [place] [address] [place] [address] Kiln Loader: Phillip Camarena MD #### FSH, E2 #### [address] [address] Kiln Loader: Melvin Santoyo MD Microalbumin conc. <12 Normal 0-20 [facility] Comment on above: Performed By: #### C BC #### [address] [place] [address] Kiln Loader: Phillip Camarena MD #### FSH, E2 #### [address] [address] Kiln Loader: Melvin Santoyo MD [place] 9 ALT [Catalytic activity/Vol] 25 U/L Normal 5-33 [facility] Comment on above: Performed By: #### G LYHGB #### [address] [address] Kiln Loader: Melvin Santoyo MD #### BMP, ALT, AST #### [address] [place] [address] Kiln Loader: Phillip Camarena MD [place] 6 AST [Catalytic activity/Vol] 30 U/L Normal <32 [facility] Comment on above: Performed By: #### G LYHGB #### [address] [address] Kiln Loader: Melvin Santoyo MD #### BMP, ALT, AST #### [address] [place] [address] Kiln Loader: Phillip Camarena MD Basic Metabolic Profon 03-236 Anion gap [Moles/Vol] 14 mmol/L Normal 9-17 [facility] Comment on above: Performed By: #### G LYHGB #### [address] [id number] Kiln Loader: Melvin Santoyo MD #### BMP, ALT, AST #### [facility] [address] [place], [place] [id number] Kiln Loader: Phillip Camarena MD BUN/CRE Ratio 33 High 9-20 [facility] Comment on above: Performed By: #### G LYHGB #### [address] [address] Kiln Loader: Melvin Santoyo MD #### BMP, ALT, AST #### [facility] [address] [place], [place] [id number] Kiln Loader: Phillip Camarena MD Calcium [Mass/Vol] 9.3 mg/dL Normal 8.6-10.4 [facility] Comment on above: Performed By: #### G LYHGB #### [address] [address] Kiln Loader: Melvin Santoyo MD #### BMP, ALT, AST #### [facility] [address] [place] [id number] Kiln Loader: Phillip Camarena MD Chloride [Moles/Vol] 98 mmol/L Normal 98-107 [facility] Comment on above: Performed By: #### G LYHGB #### [address] [address] Kiln Loader: Melvin Santoyo MD #### BMP, ALT, AST #### [facility] [address] [place] [id number] Kiln Loader: Phillip Camarena MD CO2 [Moles/Vol] 23 mmol/L Normal 20-31 [facility] Comment on above: Performed By: #### G LYHGB #### [address] [address] Kiln Loader: Melvin Santoyo MD #### BMP, ALT, AST #### [facility] [address] [place] [address] [place] [place], [place] 2961183 Kiln Loader: Phillip Camarena MD Creatinine [Mass/Vol] 1.1 mg/dL High 0.5-0.9 [facility] Comment on above: Performed By: #### G LYHGB #### [address] [address] Kiln Loader: Melvin Santoyo MD #### BMP, ALT, AST #### [address] [place], [place] 0207683 Kiln Loader: Phillip Camarena MD GFR/1.73 sq M.predicted among non-blacks MDRD (S/P/Bld) [Vol rate/Area] 61 mL/min/{1.73_m2} Normal >60 [facility] Comment on above: Result Comment: These results [...] affects renal tubular secretion. Performed By: #### G LYHGB #### [address] [address] Kiln Loader: Melvin Santoyo MD #### BMP, ALT, AST #### [address] [place], [place] 4904083 Kiln Loader: Phillip Camarena MD Glucose [Mass/Vol] 221 mg/dL High 70-99 [facility] Comment on above: Performed By: #### G LYHGB #### [address] [address] Kiln Loader: Melvin Santoyo MD #### BMP, ALT, AST #### [address] [place] [address] Kiln Loader: Phillip Camarena MD Potassium [Moles/Vol] 5.1 mmol/L Normal 3.7-5.3 [facility] Comment on above: Performed By: #### G LYHGB #### [address] [address] Kiln Loader: Melvin Santoyo MD #### BMP, ALT, AST #### [address] [place], [place] 5723583 Kiln Loader: Phillip Camarena MD Sodium [Moles/Vol] 135 mmol/L Normal 135-144 [facility] Comment on above: Performed By: #### G LYHGB #### [address] [address] Kiln Loader: Melvin Santoyo MD #### BMP, ALT, AST #### [address] [place] 6834583 Kiln Loader: Phillip Camarena MD Urea nitrogen [Mass/Vol] 36 mg/dL High 6-20 [facility] Comment on above: Performed By: #### G LYHGB #### [address] [address] Kiln Loader: Melvin Santoyo MD #### BMP, ALT, AST #### [address] [place] 6834583 Kiln Loader: Phillip Camarena MD Hemoglobin A1Con 03-06-2024 Glucose [Mass/Vol] 171 mg/dL Normal [facility] Comment on above: Result Comment: The ADA and AACC recommend providing the estimated average glucose result to permit better patient understanding of their HBA1c result. Performed By: #### C BC #### [address] [place], [place] 4620483 Kiln Loader: Phillip Camarena MD #### FSH, E2 #### [address] [address] Kiln Loader: Melvin Santoyo MD HbA1c (Bld) [Mass fraction] 7.6 % High 4.0-6.0 [facility] Comment on above: Performed By: #### C BC #### [facility] [address] [place], [place] 6530883 Kiln Loader: Phillip Camarena MD #### FSH, E2 #### [address] [address] Kiln Loader: Melvin Santoyo MD Basic Metabolic Profon 12-06 Anion gap [Moles/Vol] 13 mmol/L Normal 9-17 [facility] Comment on above: Performed By: #### C BC #### [facility] [address] [place] [address] [place], [place] 9395483 Kiln Loader: Phillip Camarena MD #### FSH, E2 #### [address] [address] Kiln Loader: Melvin Santoyo MD BUN/CRE Ratio 30 High 9-20 [facility] Comment on above: Performed By: #### C BC #### [address] [place], [place] 9459183 Kiln Loader: Phillip Camarena MD #### FSH, E2 #### [address] [address] Kiln Loader: Melvin Santoyo MD Calcium [Mass/Vol] 8.6 mg/dL Normal 8.6-10.4 [facility] Comment on above: Performed By: #### C BC #### [facility] [address] [place], [place] 1580883 Kiln Loader: Phillip Camarena MD #### FSH, E2 #### [place] [address] [place] [address] Kiln Loader: Melvin Santoyo MD Chloride [Moles/Vol] 99 mmol/L Normal 98-107 [facility] Comment on above: Performed By: #### C BC #### [facility] [address] [place] [address] Kiln Loader: Phillip Camarena MD #### FSH, E2 #### [address] [place], [place] 5329808 Kiln Loader: Melvin Santoyo MD CO2 [Moles/Vol] 23 mmol/L Normal 20-31 [facility] Comment on above: Performed By: #### C BC #### [facility] [address] [place] [address] Kiln Loader: Phillip Camarena MD #### FSH, E2 #### [address] [id number] Kiln Loader: Melvin Santoyo MD Creatinine [Mass/Vol] 0.7 mg/dL Normal 0.5-0.9 [facility] Comment on above: Performed By: #### C BC #### [facility] [address] [place] [address] Kiln Loader: Phillip Camarena MD #### FSH, E2 #### [address] [place], [place] 0708508 Kiln Loader: Melvin Santoyo MD GFR/1.73 sq M.predicted among non-blacks MDRD (S/P/Bld) [Vol rate/Area] mL/min/{1.73_m2} Normal >60 [facility] Comment on above: Result Comment: These results [...] renal tubular secretion. Performed By: #### C BC #### [facility] [address] [place], [place] 1463183 Kiln Loader: Phillip Camarena MD #### FSH, E2 #### [address] [place] [address] Kiln Loader: Melvin Santoyo MD Glucose [Mass/Vol] 123 mg/dL High 70-99 [facility] Comment on above: Performed By: #### C BC #### [facility] [address] [place], [place] 3848083 Kiln Loader: Phillip Camarena MD #### FSH, E2 #### [address] [address] Kiln Loader: Melvin Santoyo MD Potassium [Moles/Vol] 4.3 mmol/L Normal 3.7-5.3 [facility] Comment on above: Performed By: #### C BC #### [address] [place], [place] 1167883 Kiln Loader: Phillip Camarena MD #### FSH, E2 #### [address] [address] Kiln Loader: Melvin Santoyo MD Sodium [Moles/Vol] 135 mmol/L Normal 135-144 [facility] Comment on above: Performed By: #### C BC #### [address] [place] [address] Kiln Loader: Phillip Camarena MD #### FSH, E2 #### [address] [place] [address] Kiln Loader: Melvin Santoyo MD Urea nitrogen [Mass/Vol] 21 mg/dL High 6-20 [facility] Comment on above: Performed By: #### C BC #### [address] [place], [place] 5619383 Kiln Loader: Phillip Camarena MD #### FSH, E2 #### [facility] [address] [place], [place] 2551608 Kiln Loader: Melvin Santoyo MD Brain Natri. Peptideon 12-06 Natriuretic peptide B (Bld) [Mass/Vol] 60 pg/mL Normal <300 [facility] Comment on above: Result Comment: An age-independent cutoff point of 300 pg/ml has a 98% negative predictive value excluding acute heart failure. Performed By: #### C BC #### [facility] [address] [place], [place] 0236783 Kiln Loader: Phillip Camarena MD #### FSH, E2 #### [facility] [address] [place] [address] Kiln Loader: Melvin Santoyo MD XR CHEST (2 VW)on 12-07-2023 XR CHEST (2 VW) EXAMINATION: TWO XRAY VIEWS OF THE CHEST 12/07/2023 12:58 pm COMPARISON: None. HISTORY: ORDERING SYSTEM PROVIDED HISTORY: Lower leg edema FINDINGS: The lungs appear clear. The heart and mediastinal structures are unremarkable. Bony thorax appears normal. Visualized upper abdomen is unremarkable. IMPRESSION: No radiographic evidence of acute cardiopulmonary disease. Interpreted by: Jesus Otero MD Signed by: Jesus Otero MD 12/07/23 Final result Normal [facility] XR Chest 2 Viewson No radiographic evidence of acute cardiopulmonary disease. [facility] EXAMINATION: TWO XRAY VIEWS OF THE CHEST 12/07/2023 12:58 pm COMPARISON: None. HISTORY: ORDERING SYSTEM PROVIDED HISTORY: Lower leg edema FINDINGS: The lungs appear clear. The heart and mediastinal structures are unremarkable. Bony thorax appears normal. Visualized upper abdomen is unremarkable. [facility] Jesus Otero MD - 12/07/2023 EXAMINATION: TWO XRAY VIEWS OF THE CHEST 12/07/2023 12:58 pm COMPARISON: None. HISTORY: ORDERING SYSTEM PROVIDED HISTORY: Lower leg edema FINDINGS: The lungs appear clear. The heart and mediastinal structures are unremarkable. Bony thorax appears normal. Visualized upper abdomen is unremarkable. IMPRESSION: No radiographic evidence of acute cardiopulmonary disease. [facility] Radiology Study observation (narrative) [facility] XR Chest 2 ViewsOrdered By: Jesus Otero on 12-07-2023 [facility] Work Phone: Hemoglobin A1Con 11-21-2023 Glucose [Mass/Vol] 169 mg/dL Normal [facility] Comment on above: Result Comment: The ADA and AACC recommend providing the estimated average glucose result to permit better patient understanding of their HBA1c result. Performed By: #### B MP #### [facility] [address] [place] [address] [address] [place], [place] [phone] Kiln Loader: Phillip Camarena MD HbA1c (Bld) [Mass fraction] 7.5 % High 4.0-6.0 [facility] Comment on above: Performed By: #### B MP #### [address] [place], [place] 3521883 Kiln Loader: Phillip Camarena MD Flu A/B Ag Detectionon 10-14 Flu A Ag Detection Negative Normal NEG [facility] Comment on above: Result Comment: for Influenza A Antigen Performed By: #### C BC #### [address] [place], [place] 1416183 Kiln Loader: Phillip Camarena MD #### FSH, E2 #### [facility] [address] [place], [place] 4365208 Kiln Loader: Melvin Santoyo MD Flu B Ag Detection Negative Normal NEG [facility] Comment on above: Result Comment: for Influenza B Antigen. Performed By: #### C BC #### [address] [place] [address] Kiln Loader: Phillip Camarena MD #### FSH, E2 #### [facility] [address] [place] [address] Kiln Loader: Melvin Santoyo MD [id number] 10-14-2023 SARS-CoV-2 (COVID-19) RNA ASHLEY+probe Ql (Unsp spec) Not detected Normal NOTDET [facility] Comment on above: Result Comment: Rapid NAAT: [...] management decisions. Fact sheet for Healthcare Providers: https://www.fda.gov/media/587311/download Fact sheet for Patients: https://www.fda.gov/media/648744/download Methodology: Isothermal Nucleic Acid Amplification Performed By: #### C BC #### [facility] [address] [place] [address] Kiln Loader: Phillip Camarena MD #### FSH, E2 #### [address] [address] Kiln Loader: Melvin Santoyo MD XR CHEST (2 VW)on 10-14-2023 XR CHEST (2 VW) EXAMINATION: TWO XRAY VIEWS OF THE CHEST 10/14/2023 4:58 pm COMPARISON: 08/04/2023 HISTORY: ORDERING SYSTEM PROVIDED HISTORY: Deep couch that has persisted for 3 weeks TECHNOLOGIST PROVIDED HISTORY: Deep couch that has persisted for 3 weeks FINDINGS: The lungs are without acute focal process. There is no effusion or pneumothorax. The cardiomediastinal silhouette is stable. The osseous structures are stable. IMPRESSION: No acute process. Interpreted by: Mao Rogers MD Signed by: Mao Rogers MD 10/14/23 Final result Normal [facility] Estradiolon 09-07-2023 Estradiol <5.0 Normal [facility] Comment on above: Result Comment: FEMALES: Normally menstruating Luteal phase 60-232 Follicular phase 31-90 Midcycle phase 60-533 Postmenopausal (untreated) <138 Fulvestrant treatment will show an increased estradiol concentration with this methodology. Alternate methodologies are available upon request. Performed By: #### C BC #### [facility] [address] [place] [address] Kiln Loader: Phillip Camarena MD #### FSH, E2 #### [facility] [address] [place], [place] 5605808 Kiln Loader: Melvin Santoyo MD Follicle Stim. Hormon 1 Follicle Stim. Horm 72.2 mIU/mL Normal [facility] Comment on above: Result Comment: Refe rence Range: Male: 1.5-12.4 Ovulating Female: Follicular Phase 3.5-12.5 Ovulation Phase 4.7-21.5 Luteal Phase 1.7-7.7 Postmenopausal Female: 25.8-134.8 Performed By: #### C BC #### [facility] [address] [place] [address] Kiln Loader: Phillip Camarena MD #### FSH, E2 #### [facility] [address] [place], [place] 7932808 Kiln Loader: Melvin Santoyo MD CBCon 09-06-2023 Erythrocyte distribution width (RBC) [Ratio] 14.3 % Normal 11.8-14.4 [facility] Comment on above: Performed By: #### C BC #### [facility] [address] [place] [address] Kiln Loader: Phillip Camarena MD #### FSH, E2 #### [facility] [address] [place], [place] 8292308 Kiln Loader: Melvin Santoyo MD Hematocrit (Bld) [Volume fraction] 43.7 % Normal 36.3-47.1 [facility] Comment on above: Performed By: #### C BC #### [address] [place], [place] 9851283 Kiln Loader: Phillip Camarena MD #### FSH, E2 #### [address] [place], [place] 9351108 Kiln Loader: Melvin Santoyo MD Hemoglobin (Bld) [Mass/Vol] 14.4 g/dL Normal 11.9-15.1 [facility] Comment on above: Performed By: #### C BC #### [address] [place], [place] 6748483 Kiln Loader: Phillip Camarena MD #### FSH, E2 #### [address] [address] [place], [place] 3163708 Kiln Loader: Melvin Santoyo MD MCH (RBC) [Entitic mass] 31.9 pg Normal 25.2-33.5 [facility] Comment on above: Performed By: #### C BC #### [address] [place], [place] 2748983 Kiln Loader: Phillip Camarena MD #### FSH, E2 #### [address] [id number] Kiln Loader: Melvin Santoyo MD MCHC (RBC) [Mass/Vol] 33.0 g/dL Normal 28.4-34.8 [facility] Comment on above: Performed By: #### C BC #### [address] [place], [place] 1083183 Kiln Loader: Phillip Camarena MD #### FSH, E2 #### [address] [place], [place] 4461008 Kiln Loader: Melvin Santoyo MD MCV (RBC) [Entitic vol] 96.7 fL Normal 82.6-102.9 [facility] Comment on above: Performed By: #### C BC #### [address] [place], [place] 6774183 Kiln Loader: Phillip Camarena MD #### FSH, E2 #### [address] [place], [place] 2921508 Kiln Loader: Melvin Santoyo MD NRBC Automated 0.0 per 100 WBC Normal 0.0 [facility] Comment on above: Performed By: #### C BC #### [address] [place] 6834583 Kiln Loader: Phillip Camarena MD #### FSH, E2 #### [address] [id number] Kiln Loader: Melvin Santoyo MD Platelet mean volume (Bld) [Entitic vol] 9.2 fL Normal 8.1-13.5 [facility] Comment on above: Performed By: #### C BC #### [address] [place] 6834583 Kiln Loader: Phillip Camarena MD #### FSH, E2 #### [address] [address] Kiln Loader: Melvin Santoyo MD Platelets (Bld) [#/Vol] 356 10*3/uL Normal 138-453 [facility] Comment on above: Performed By: #### C BC #### [address] [place] 6834583 Kiln Loader: Phillip Camarena MD #### FSH, E2 #### [address] [id number] Kiln Loader: Melvin Santoyo MD RBC (Bld) [#/Vol] 4.52 10*6/uL Normal 3.95-5.11 [facility] Comment on above: Performed By: #### C BC #### [address] [place], [place] 2031683 Kiln Loader: Phillip Camarena MD #### FSH, E2 #### [facility] [address] [place] [address] Kiln Loader: Melvin Santoyo MD WBC (Bld) [#/Vol] 8.2 10*3/uL Normal 3.5-11.3 [facility] Comment on above: Performed By: #### C BC #### [address] [place] [address] Kiln Loader: Phillip Camarena MD #### FSH, E2 #### [facility] [address] [place] [address] Kiln Loader: Melvin Santoyo MD TSH w/reflex to FT4on 2022 Thyroid Stim. Horm. 1.08 uIU/mL Normal 0.30-5.00 [facility] Comment on above: Performed By: #### B MP #### [address] [place] [address] Kiln Loader: Phillip Camarena MD XR CHEST (2 VW)on [...] Alberto Phan MD 08/05/23 Final result Normal [facility] Hemoglobin A1Con 08-04-2023 Glucose [Mass/Vol] 217 mg/dL Normal [facility] Comment on above: Result Comment: The ADA and AACC recommend providing the estimated average glucose result to permit better patient understanding of their HBA1c result. Performed By: #### C BC #### [address] [place] [phone] Kiln Loader: Phillip Camarena MD #### FSH, E2 #### [address] [place], [place] 4796008 Kiln Loader: Melvin Santoyo MD HbA1c (Bld) [Mass fraction] 9.2 % High 4.0-6.0 [facility] Comment on above: Performed By: #### C BC #### [facility] [address] [place] [address] [place] [address] Kiln Loader: Phillip Camarena MD #### FSH, E2 #### [address] [place], [place] 7729608 Kiln Loader: Melvin Santoyo MD LDL Chol, Directon 3 LDL Chol, Direct 57 mg/dL Normal <100 [facility] Comment on above: Performed By: #### C BC #### [facility] [address] [place] [address] [place] [place] 6834583 Kiln Loader: Phillip Camarena MD #### FSH, E2 #### [address] [id number] Kiln Loader: Melvin Santoyo MD Comp Metabolic Profon 2022 AST [Catalytic activity/Vol] 27 U/L Normal <32 [facility] Comment on above: Performed By: #### C BC #### [facility] [address] [place] [address] [address] [place], [place] 1211183 Kiln Loader: Phillip Camarena MD #### FSH, E2 #### [address] [place], [place] 2668408 Kiln Loader: Melvin Santoyo MD Bilirubin [Mass/Vol] mg/dL Low 0.3-1.2 [facility] Comment on above: Performed By: #### C BC #### [facility] [address] [place] [address] Kiln Loader: Phillip Camarena MD #### FSH, E2 #### [address] [place] [address] Kiln Loader: Melvin Santoyo MD Albumin [Mass/Vol] 4.6 g/dL Normal 3.5-5.2 [facility] Comment on above: Performed By: #### C BC #### [facility] [address] [place], [place] 1175783 Kiln Loader: Phillip Camarena MD #### FSH, E2 #### [address] [address] Kiln Loader: Melvin Santoyo MD Albumin/Glob Ratio 1.6 Normal 1.0-2.5 [facility] Comment on above: Performed By: #### C BC #### [facility] [address] [place] [address] [address] [place], [place] 7519983 Kiln Loader: Phillip Camarena MD #### FSH, E2 #### [address] [address] Kiln Loader: Melvin Santoyo MD Alkaline Phos 71 U/L Normal 35-104 [facility] Comment on above: Performed By: #### C BC #### [facility] [address] [place] [address] [address] [place], [place] 1025883 Kiln Loader: Phillip Camarena MD #### FSH, E2 #### [address] [address] Kiln Loader: Melvin Santoyo MD ALT [Catalytic activity/Vol] 33 U/L Normal 5-33 [facility] Comment on above: Performed By: #### C BC #### [facility] [address] [place], [place] 9706883 Kiln Loader: Phillip Camarena MD #### FSH, E2 #### [address] [address] Kiln Loader: Melvin Santoyo MD Anion gap [Moles/Vol] 13 mmol/L Normal 9-17 [facility] Comment on above: Performed By: #### C BC #### [facility] [address] [place], [place] 8364683 Kiln Loader: Phillip Camarena MD #### FSH, E2 #### [address] [address] Kiln Loader: Melvin Santoyo MD BUN/CRE Ratio 24 High 9-20 [facility] Comment on above: Performed By: #### C BC #### [facility] [address] [place], [place] 4675183 Kiln Loader: Phillip Camarena MD #### FSH, E2 #### [address] [address] Kiln Loader: Melvin Santoyo MD Calcium [Mass/Vol] 9.7 mg/dL Normal 8.6-10.4 [facility] Comment on above: Performed By: #### C BC #### [facility] [address] [place], [place] 6700883 Kiln Loader: Phillip Camarena MD #### FSH, E2 #### [address] [address] Kiln Loader: Melvin Santoyo MD Chloride [Moles/Vol] 100 mmol/L Normal 98-107 [facility] Comment on above: Performed By: #### C BC #### [facility] [address] [place], [place] 5173883 Kiln Loader: Phillip Camarena MD #### FSH, E2 #### [address] [address] Kiln Loader: Melvin Santoyo MD CO2 [Moles/Vol] 22 mmol/L Normal 20-31 [facility] Comment on above: Performed By: #### C BC #### [facility] [address] [place], [place] 0570083 Kiln Loader: Phillip Camarena MD #### FSH, E2 #### [facility] [address] [place], [place] 2574308 Kiln Loader: Melvin Santoyo MD Creatinine [Mass/Vol] 0.7 mg/dL Normal 0.5-0.9 [facility] Comment on above: Performed By: #### C BC #### [facility] [address] [place] [address] [address] [place], [place] 0192683 Kiln Loader: Phillip Camarena MD #### FSH, E2 #### [facility] [address] [place], [place] 3558308 Kiln Loader: Melvin Santoyo MD GFR/1.73 sq M.predicted among non-blacks MDRD (S/P/Bld) [Vol rate/Area] mL/min/{1.73_m2} Normal >60 [facility] Comment on above: Result Comment: These results [...] renal tubular secretion. Performed By: #### C BC #### [facility] [address] [place] [address] [address] [place] [id number] Kiln Loader: Phillip Camarena MD #### FSH, E2 #### [facility] [address] [place], [place] 5542508 Kiln Loader: Melvin Santoyo MD Glucose [Mass/Vol] 125 mg/dL High 70-99 [facility] Comment on above: Performed By: #### C BC #### [facility] [address] [place], [place] [address] [place] [place], [place] [id number] Kiln Loader: Phillip Camarena MD #### FSH, E2 #### [address] [address] Kiln Loader: Melvin Santoyo MD Potassium [Moles/Vol] 4.5 mmol/L Normal 3.7-5.3 [facility] Comment on above: Performed By: #### C BC #### [facility] [address] [place], [place] [id number] Kiln Loader: Phillip Camarena MD #### FSH, E2 #### [address] [address] Kiln Loader: Melvin Santoyo MD Protein [Mass/Vol] 7.5 g/dL Normal 6.4-8.3 [facility] Comment on above: Performed By: #### C BC #### [facility] [address] [place] [address] [address] [place], [place] [id number] Kiln Loader: Phillip Camarena MD #### FSH, E2 #### [address] [address] Kiln Loader: Melvin Santoyo MD Sodium [Moles/Vol] 135 mmol/L Normal 135-144 [facility] Comment on above: Performed By: #### C BC #### [facility] [address] [place] [address] [address] [place], [place] [id number] Kiln Loader: Phillip Camarena MD #### FSH, E2 #### [address] [address] Kiln Loader: Melvin Santoyo MD Urea nitrogen [Mass/Vol] 17 mg/dL Normal 6-20 [facility] Comment on above: Performed By: #### C BC #### [facility] [address] [place], [place] [phone] Kiln Loader: Phillip Camarena MD #### FSH, E2 #### [address] [id number] Kiln Loader: Melvin Santoyo MD Lipid Profileon 08-03-2023 Cholesterol,LDL Normal 0-130 [facility] Comment on above: Result Comment: Calc ulation not valid for Triglyceride value greater than 400 mg/dL. Direct LDL reflexed LDL Guidelines: <100 Desirable 100-129 Near to/above Desirable 130-159 Borderline >159 Undesirable Direct (measured) LDL and calculated LDL are not interchangeable tests. Performed By: #### C BC #### [facility] [address] [place] [address] [address] [place], [place] [id number] Kiln Loader: Phillip Camarena MD #### FSH, E2 #### [address] [place], [place] [id number] Kiln Loader: Melvin Santoyo MD Triglyceride [Mass/Vol] 2181 mg/dL High <150 [facility] Comment on above: Result Comment: Triglyceride Guidelines: <150 Desirable 150-199 Borderline 200-499 High >499 Very high Based on AHA Guidelines for fasting triglyceride, June 2012. Performed By: #### C BC #### [facility] [address] [place] [address] Kiln Loader: Phillip Camarena MD #### FSH, E2 #### [address] [id number] Kiln Loader: Melvin Santoyo MD Cholesterol [Mass/Vol] 334 mg/dL High <200 [facility] Comment on above: Result Comment: Cholesterol Guidelines: <200 Desirable 200-240 Borderline >240 Undesirable Performed By: #### C BC #### [facility] [address] [place] [address] Kiln Loader: Phillip Camarena MD #### FSH, E2 #### [address] [id number] Kiln Loader: Melvin Santoyo MD Cholesterol in HDL [Mass/Vol] 17 mg/dL Low >40 [facility] Comment on above: Result Comment: HDL Guidelines: <40 Undesirable 40-59 Borderline >59 Desirable Performed By: #### C BC #### [facility] [address] [place], [place] [id number] Kiln Loader: Phillip Camarena MD #### FSH, E2 #### [address] [id number] Kiln Loader: Melvin Santoyo MD Cholesterol.total/Chol esterol in HDL [Mass ratio] 19.6 {ratio} High <5 [facility] Comment on above: Performed By: #### C BC #### [facility] [address] [place] [address] Kiln Loader: Phillip Camarena MD #### FSH, E2 #### [address] [address] Kiln Loader: Melvin Santoyo MD Microalb.,Random Uron 2022 Creatinine [Mass/Vol] 63.2 mg/dL Normal 28.0-217.0 [facility] Comment on above: Performed By: #### C BC #### [facility] [address] [place], [place] [phone] Kiln Loader: Phillip Camarena MD #### FSH, E2 #### [address] [address] Kiln Loader: Melvin Santoyo MD Microalb/Creat Ratio Can not be calculated Normal <25 [facility] Comment on above: Performed By: #### C BC #### [facility] [address] [place], [place] [phone] Kiln Loader: Pihllip Camarena MD #### FSH, E2 #### [address] [address] Kiln Loader: Melvin Santoyo MD Microalbumin conc. <12 Normal <21 [facility] Comment on above: Performed By: #### C BC #### [facility] [address] [place] [address] Kiln Loader: Phillip Camarena MD #### FSH, E2 #### [facility] [employer] [address] [place] [address] Kiln Loader: Melvin Santoyo MD TSH w/reflex to FT4on 2022 Thyroid Stim. Horm. 0.46 uIU/mL Normal 0.30-5.00 [facility] Comment on above: Performed By: #### C BC #### [facility] [address] [place] [address] Kiln Loader: Phillip Camarena MD #### FSH, E2 #### [facility] [employer] [address] [place] [address] Kiln Loader: Melvin Santoyo MD XR SHOULDER LEFT (MIN 2 VIEW [...] Phillip Stapleton MD 07/23/23 Final result Normal [facility] CBC with Auto Differentialon 06-16-2023 Basophils (Bld) [#/Vol] 0.00 10*3/uL [facility] Basophils/100 WBC (Bld) 0 % 0 - 2 % [facility] Eosinophils (Bld) [#/Vol] 0.00 10*3/uL [facility] Eosinophils/100 WBC (Bld) 0 % Low 1 - 4 % [facility] Erythrocyte distribution width (RBC) [Ratio] 13.1 % 11.8 - 14.4 % [facility] Hematocrit (Bld) [Volume fraction] 44.3 % 36.3 - 47.1 % [facility] Hemoglobin (Bld) [Mass/Vol] 14.6 g/dL 11.9 - 15.1 g/dL [facility] Immature granulocytes (Bld) [#/Vol] 0.25 10*3/uL [facility] Immature granulocytes/100 WBC (Bld) 2 % High 0 [facility] Interpretation and review of laboratory results Abnormal [facility] Lymphocytes/100 WBC (Bld) 20 % Low 24 - 43 % [facility] Lymphocytes/100 WBC (Bld) 2.46 % [facility] MCH (RBC) [Entitic mass] 31.3 pg 25.2 - 33.5 pg [facility] MCHC (RBC) [Mass/Vol] 33.0 g/dL 28.4 - 34.8 g/dL [facility] MCV (RBC) [Entitic vol] 95.1 fL 82.6 - 102.9 fL [facility] Monocytes/100 WBC (Bld) 6 % 3 - 12 % [facility] Monocytes/100 WBC (Bld) 0.74 % [facility] Morphology Alejo (Bld) [Interp] ANISOCYTOSIS PRESENT [facility] Neutrophils/100 WBC (Bld) 72 % High 36 - 65 % [facility] Nucleated RBC/100 WBC (Bld) [Ratio] 0.0 % 0.0 per 100 WBC [facility] Platelet mean volume (Bld) [Entitic vol] 8.8 fL 8.1 - 13.5 fL [facility] Platelets (Bld) [#/Vol] 438 10*3/uL [facility] RBC (Bld) [#/Vol] 4.66 10*6/uL 3.95 - 5.1 1 m/uL [facility] Segmented neutrophils/100 WBC (Bld) 8.85 % High [facility] WBC other (Bld) [#/Vol] 12.3 High [facility] CT Head WO Contraston 2022 No acute intracrania l abnormality. [facility]IS CONSOLIDATED EXAMINATION: CT OF THE HEAD WITHOUT [...] is intact. Extracranial soft tissues are unremarkable. [facility] Brandon Morfin M D - 06/16/2023 [...] are unremarkable. IMPRESSION: No acute intracranial abnormality. [facility] Radiology Study observation (narrative) [facility] CT Head WO ContrastOrdered B y: Brandon Morfin on 06-16-2023 [facility] Work Phone: Comprehensive Metabolic Pane yamilet 06-16-2023 Albumin [Mass/Vol] 4.5 g/dL 3.5 - 5.2 g/dL [facility] Albumin/Globulin [Mass ratio] 1.4 {ratio} 1.0 - 2.5 [facility] ALP [Catalytic activity/Vol] 59 U/L 35 - 104 U/L [facility] ALT [Catalytic activity/Vol] 30 U/L 5 - 33 U/L [facility] Anion gap [Moles/Vol] 10 mmol/L 9 - 17 mmol/L [facility] AST [Catalytic activity/Vol] 33 U/L High NINF - 32 U/L [facility] Bilirubin [Mass/Vol] 0.3 mg/dL 0.3 - 1 .2 mg/dL [facility] Calcium [Mass/Vol] 9.9 mg/dL 8.6 - 10. 4 mg/dL [facility] Chloride [Moles/Vol] 99 mmol/L 98 - 10 7 mmol/L [facility] CO2 [Moles/Vol] 26 mmol/L 20 - 31 mmol/L [facility] Creatinine [Mass/Vol] 1.0 mg/dL High 0.5 - 0.9 mg/dL [facility] GFR/1.73 sq M.predicted MDRD (S/P/Bld) [Vol rate/Area] - PINF [facility] Comment on above: These results are not [...] 109 mg/dL High 70 - 99 mg/dL [facility] Interpretation and review of laboratory results Abnormal [facility] Potassium [Moles/Vol] 5.0 mmol/L 3.7 - 5.3 mmol/L [facility] Protein [Mass/Vol] 7.8 g/dL 6.4 - 8.3 g/dL [facility] Sodium [Moles/Vol] 135 mmol/L 135 - 144 mmol/L [facility] Urea nitrogen [Mass/Vol] 29 mg/dL High 6 - 20 mg/dL [facility] Urea nitrogen/Creatinine [Mass ratio] 29 mg/mg High 9 - 20 [facility] Troponinon 06-16-2023 Interpretation and review of laboratory results Abnormal [facility] Troponin I.cardiac High sensitivity method [Mass/Vol] 15 ng/L High 0 - 14 ng/L [facility] Comment on above: High Sensitivity Tro ponin values cannot be compared with other Troponin methodologies. [facility] XR CHEST PORTABLEon 06-16-20 23 Mild prominence of pulmonary vasculature and interstitium related to technique versus developing pulmonary edema. [facility] CON[facility] EXAMINATION: ONE XRAY VIEW OF THE CHEST 06/16/2023 6:31 pm COMPARISON: June 10, 2023 and additional prior exams. HISTORY: ORDERING SYSTEM PROVIDED HISTORY: Syncope TECHNOLOGIST PROVIDED HISTORY: Syncope FINDINGS: Mild increased prominence of the pulmonary vasculature and interstitium. No pleural effusion or pneumothorax identified. Cardiac and mediastinal silhouettes are within normal limits. No acute osseous abnormality identified. [facility] Jason Long MD - 06/16/2023 EXAMINATION: ONE [...] related to technique versus developing pulmonary edema. [facility] Radiology Study observation (narrative) [facility] XR CHEST PORTABLEOrdered By: Jason Long on 06-16-2023 [facility] Work Phone: Basic Metabolic Panel w/ Ref kartik to MGon 06-14-2023 Anion gap [Moles/Vol] 11 mmol/L 9 - 17 mmol/L [facility] Calcium [Mass/Vol] 9.9 mg/dL 8.6 - 10. 4 mg/dL [facility] Chloride [Moles/Vol] 98 mmol/L 98 - 10 7 mmol/L [facility] CO2 [Moles/Vol] 26 mmol/L 20 - 31 mmol/L [facility] Creatinine [Mass/Vol] 0.9 mg/dL 0.5 - 0.9 mg/dL [facility] GFR/1.73 sq M.predicted MDRD (S/P/Bld) [Vol rate/Area] - PINF [facility] Comment on above: These results are not [...] 186 mg/dL High 70 - 99 mg/dL [facility] Interpretation and review of laboratory results Abnormal [facility] Potassium [Moles/Vol] 4.4 mmol/L 3.7 - 5.3 mmol/L [facility] Sodium [Moles/Vol] 135 mmol/L 135 - 144 mmol/L [facility] Urea nitrogen [Mass/Vol] 30 mg/dL High 6 - 20 mg/dL [facility] Urea nitrogen/Creatinine [Mass ratio] 33 mg/mg High 9 - 20 [facility] CBC auto differentialon 05-27 Basophils (Bld) [#/Vol] 0.03 10*3/uL [facility] Basophils/100 WBC (Bld) 0 % 0 - 2 % [facility] Eosinophils (Bld) [#/Vol] [facility] Eosinophils/100 WBC (Bld) 0 % Low 1 - 4 % [facility] Erythrocyte distribution width (RBC) [Ratio] 13.4 % 11.8 - 14.4 % [facility] Hematocrit (Bld) [Volume fraction] 35.7 % Low 36.3 - 47.1 % [facility] Hemoglobin (Bld) [Mass/Vol] 11.5 g/dL Low 11.9 - 15.1 g/dL [facility] Immature granulocytes (Bld) [#/Vol] 0.32 10*3/uL High [facility] Immature granulocytes/100 WBC (Bld) 3 % High 0 [facility] Interpretation and review of laboratory results Abnormal [facility] Lymphocytes/100 WBC (Bld) 16 % Low 24 - 43 % [facility] Lymphocytes/100 WBC (Bld) 1.82 % [facility] MCH (RBC) [Entitic mass] 31.1 pg 25.2 - 33.5 pg [facility] MCHC (RBC) [Mass/Vol] 32.2 g/dL 28.4 - 34.8 g/dL [facility] MCV (RBC) [Entitic vol] 96.5 fL 82.6 - 102.9 fL [facility] Monocytes/100 WBC (Bld) 5 % 3 - 12 % [facility] Monocytes/100 WBC (Bld) 0.52 % [facility] Neutrophils/100 WBC (Bld) 77 % High 36 - 65 % [facility] Nucleated RBC/100 WBC (Bld) [Ratio] 0.0 % 0.0 per 100 WBC [facility] Platelet mean volume (Bld) [Entitic vol] 9.2 fL 8.1 - 13.5 fL [facility] Platelets (Bld) [#/Vol] 355 10*3/uL [facility] RBC (Bld) [#/Vol] 3.70 10*6/uL Low 3.95 - 5.1 1 m/uL [facility] Segmented neutrophils/100 WBC (Bld) 8.74 % High [facility] WBC other (Bld) [#/Vol] 11.4 High [facility] Glucose, Whole Bloodon 06-14 Glucose [Mass/Vol] 228 mg/dL High 74 - 100 mg/dL [facility] Interpretation and review of laboratory results Abnormal [facility] Glucose [Mass/Vol] 167 mg/dL High 74 - 100 mg/dL [facility] Interpretation and review of laboratory results Abnormal [facility] Basic Metabolic Panel w/ Ref kartik to MGon 06-13-2023 Anion gap [Moles/Vol] 12 mmol/L 9 - 17 mmol/L [facility] Calcium [Mass/Vol] 9.7 mg/dL 8.6 - 10. 4 mg/dL [facility] Chloride [Moles/Vol] 103 mmol/L 98 - 10 7 mmol/L [facility] CO2 [Moles/Vol] 23 mmol/L 20 - 31 mmol/L [facility] Creatinine [Mass/Vol] 0.7 mg/dL 0.5 - 0.9 mg/dL [facility] GFR/1.73 sq M.predicted MDRD (S/P/Bld) [Vol rate/Area] - PINF [facility] Comment on above: These results are not [...] 199 mg/dL High 70 - 99 mg/dL [facility] Interpretation and review of laboratory results Abnormal [facility] Potassium [Moles/Vol] 4.3 mmol/L 3.7 - 5.3 mmol/L [facility] Sodium [Moles/Vol] 138 mmol/L 135 - 144 mmol/L [facility] Urea nitrogen [Mass/Vol] 28 mg/dL High 6 - 20 mg/dL [facility] Urea nitrogen/Creatinine [Mass ratio] 40 mg/mg High 9 - 20 [facility] CBC auto differentialon 05-27 Basophils (Bld) [#/Vol] [facility] Basophils/100 WBC (Bld) 0 % 0 - 2 % [facility] Eosinophils (Bld) [#/Vol] [facility] Eosinophils/100 WBC (Bld) 0 % Low 1 - 4 % [facility] Erythrocyte distribution width (RBC) [Ratio] 13.6 % 11.8 - 14.4 % [facility] Hematocrit (Bld) [Volume fraction] 38.0 % 36.3 - 47.1 % [facility] Hemoglobin (Bld) [Mass/Vol] 12.2 g/dL 11.9 - 15.1 g/dL [facility] Immature granulocytes (Bld) [#/Vol] 0.24 10*3/uL [facility] Immature granulocytes/100 WBC (Bld) 2 % High 0 [facility] Interpretation and review of laboratory results Abnormal [facility] Lymphocytes/100 WBC (Bld) 14 % Low 24 - 43 % [facility] Lymphocytes/100 WBC (Bld) 1.87 % [facility] MCH (RBC) [Entitic mass] 31.2 pg 25.2 - 33.5 pg [facility] MCHC (RBC) [Mass/Vol] 32.1 g/dL 28.4 - 34.8 g/dL [facility] MCV (RBC) [Entitic vol] 97.2 fL 82.6 - 102.9 fL [facility] Monocytes/100 WBC (Bld) 5 % 3 - 12 % [facility] Monocytes/100 WBC (Bld) 0.60 % [facility] Neutrophils/100 WBC (Bld) 80 % High 36 - 65 % [facility] Nucleated RBC/100 WBC (Bld) [Ratio] 0.0 % 0.0 per 100 WBC [facility] Platelet mean volume (Bld) [Entitic vol] 9.5 fL 8.1 - 13.5 fL [facility] Platelets (Bld) [#/Vol] 226 10*3/uL [facility] RBC (Bld) [#/Vol] 3.91 10*6/uL Low 3.95 - 5.1 1 m/uL [facility] Segmented neutrophils/100 WBC (Bld) 10.70 % High [facility] WBC other (Bld) [#/Vol] 13.4 High [facility] EKG Rhythm Stripon 3 [facility] Glucose, Whole Bloodon 06-13 Glucose [Mass/Vol] 207 mg/dL High 74 - 100 mg/dL [facility] Interpretation and review of laboratory results Abnormal [facility] Glucose [Mass/Vol] 217 mg/dL High 74 - 100 mg/dL [facility] Interpretation and review of laboratory results Abnormal [facility] Glucose [Mass/Vol] 197 mg/dL High 74 - 100 mg/dL [facility] Interpretation and review of laboratory results Abnormal [facility] Glucose [Mass/Vol] 180 mg/dL High 74 - 100 mg/dL [facility] Interpretation and review of laboratory results Abnormal [facility] Basic Metabolic Panel w/ Ref kartik to MGon 06-12-2023 Anion gap [Moles/Vol] 12 mmol/L [facility] Calcium [Mass/Vol] 9.3 mg/dL 8.6 - 10. 4 mg/dL [facility] Chloride [Moles/Vol] 99 mmol/L 98 - 10 7 mmol/L [facility] CO2 [Moles/Vol] 24 mmol/L 20 - 31 mmol/L [facility] Creatinine [Mass/Vol] 0.8 mg/dL 0.5 - 0.9 mg/dL [facility] GFR/1.73 sq M.predicted MDRD (S/P/Bld) [Vol rate/Area] - PINF [facility] Comment on above: These results are not intended for use in patients <18 years of age. eGFR results are calculated without a race factor using the 2021 CKD-EPI equation. Careful clinical correlation is recommended, particularly when comparing to results calculated using previous equations. The CKD-EPI equation is less accurate in patients with extremes of muscle mass, extra-renal metabolism of creatine, excessive creatine ingestion, or following therapy that affects renal tubular secretion. Glucose [Mass/Vol] 295 mg/dL High 70 - 99 mg/dL [facility] Interpretation and review of laboratory results Abnormal [facility] Potassium [Moles/Vol] 4.7 mmol/L 3.7 - 5.3 mmol/L [facility] Sodium [Moles/Vol] 135 mmol/L 135 - 144 mmol/L [facility] Urea nitrogen [Mass/Vol] 23 mg/dL High 6 - 20 mg/dL [facility] Urea nitrogen/Creatinine [Mass ratio] 29 mg/mg High 9 - 20 [facility] CBC auto differentialon 05-27 Basophils (Bld) [#/Vol] 0.04 10*3/uL [facility] Basophils/100 WBC (Bld) 0 % 0 - 2 % [facility] Eosinophils (Bld) [#/Vol] [facility] Eosinophils/100 WBC (Bld) 0 % Low 1 - 4 % [facility] Erythrocyte distribution width (RBC) [Ratio] 13.7 % 11.8 - 14.4 % [facility] Hematocrit (Bld) [Volume fraction] 34.5 % Low 36.3 - 47.1 % [facility] Hemoglobin (Bld) [Mass/Vol] 11.2 g/dL Low 11.9 - 15.1 g/dL [facility] Immature granulocytes (Bld) [#/Vol] 0.18 10*3/uL [facility] Immature granulocytes/100 WBC (Bld) 1 % High 0 [facility] Interpretation and review of laboratory results Abnormal [facility] Lymphocytes/100 WBC (Bld) 10 % Low 24 - 43 % [facility] Lymphocytes/100 WBC (Bld) 1.59 % [facility] MCH (RBC) [Entitic mass] 31.6 pg 25.2 - 33.5 pg [facility] MCHC (RBC) [Mass/Vol] 32.5 g/dL 28.4 - 34.8 g/dL [facility] MCV (RBC) [Entitic vol] 97.5 fL 82.6 - 102.9 fL [facility] Monocytes/100 WBC (Bld) 2 % Low 3 - 12 % [facility] Monocytes/100 WBC (Bld) 0.30 % [facility] Neutrophils/100 WBC (Bld) 87 % High 36 - 65 % [facility] Nucleated RBC/100 WBC (Bld) [Ratio] 0.0 % 0.0 per 100 WBC [facility] Platelet mean volume (Bld) [Entitic vol] 10.6 fL 8.1 - 13.5 fL [facility] Platelets (Bld) [#/Vol] 367 10*3/uL [facility] RBC (Bld) [#/Vol] 3.54 10*6/uL Low 3.95 - 5.1 1 m/uL [facility] Segmented neutrophils/100 WBC (Bld) 14.32 % High [facility] WBC other (Bld) [#/Vol] 16.4 High [facility] EKG Rhythm Stripon 3 [facility] Glucose, Whole Bloodon 06-12 Glucose [Mass/Vol] 175 mg/dL High 74 - 100 mg/dL [facility] Interpretation and review of laboratory results Abnormal [facility] Glucose [Mass/Vol] 567 mg/dL Critically high 74 - 1 00 mg/dL [facility] Interpretation and review of laboratory results Abnormal [facility] Glucose [Mass/Vol] 199 mg/dL High 74 - 100 mg/dL [facility] Interpretation and review of laboratory results Abnormal [facility] Glucose [Mass/Vol] 249 mg/dL High 74 - 100 mg/dL [facility] Interpretation and review of laboratory results Abnormal [facility] Glucose [Mass/Vol] 283 mg/dL High 74 - 100 mg/dL [facility] Interpretation and review of laboratory results Abnormal [facility] Basic Metabolic Panel w/ Ref kartik to MGon 06-11-2023 Anion gap [Moles/Vol] 10 mmol/L 9 - 17 mmol/L [facility] Calcium [Mass/Vol] 9.1 mg/dL 8.6 - 10. 4 mg/dL [facility] Chloride [Moles/Vol] 105 mmol/L 98 - 10 7 mmol/L [facility] CO2 [Moles/Vol] 26 mmol/L 20 - 31 mmol/L [facility] Creatinine [Mass/Vol] 1.0 mg/dL High 0.5 - 0.9 mg/dL [facility] GFR/1.73 sq M.predicted MDRD (S/P/Bld) [Vol rate/Area] - PINF [facility] Comment on above: These results are not [...] 153 mg/dL High 70 - 99 mg/dL [facility] Interpretation and review of laboratory results Abnormal [facility] Potassium [Moles/Vol] 4.7 mmol/L 3.7 - 5.3 mmol/L [facility] Sodium [Moles/Vol] 141 mmol/L 135 - 144 mmol/L [facility] Urea nitrogen [Mass/Vol] 13 mg/dL 6 - 20 mg/dL [facility] Urea nitrogen/Creatinine [Mass ratio] 13 mg/mg 9 - 20 [facility] Brain Natriuretic Peptideon 06-11-2023 Natriuretic peptide B (Bld) [Mass/Vol] 74 pg/mL NINF - 300 pg/mL [facility] Comment on above: An age-independent cutoff point of 300 pg/ml has a 98% negative predictive value excluding acute heart failure. [facility] CBC auto differentialon 05-27 Basophils (Bld) [#/Vol] 0.06 10*3/uL [facility] Basophils/100 WBC (Bld) 1 % 0 - 2 % [facility] Eosinophils (Bld) [#/Vol] 0.34 10*3/uL [facility] Eosinophils/100 WBC (Bld) 3 % 1 - 4 % [facility] Erythrocyte distribution width (RBC) [Ratio] 14.0 % 11.8 - 14.4 % [facility] Hematocrit (Bld) [Volume fraction] 37.6 % 36.3 - 47.1 % [facility] Hemoglobin (Bld) [Mass/Vol] 12.0 g/dL 11.9 - 15.1 g/dL [facility] Immature granulocytes (Bld) [#/Vol] 0.12 10*3/uL [facility] Immature granulocytes/100 WBC (Bld) 1 % High 0 [facility] Interpretation and review of laboratory results Abnormal [facility] Lymphocytes/100 WBC (Bld) 20 % Low 24 - 43 % [facility] Lymphocytes/100 WBC (Bld) 2.45 % [facility] MCH (RBC) [Entitic mass] 31.6 pg 25.2 - 33.5 pg [facility] MCHC (RBC) [Mass/Vol] 31.9 g/dL 28.4 - 34.8 g/dL [facility] MCV (RBC) [Entitic vol] 98.9 fL 82.6 - 102.9 fL [facility] Monocytes/100 WBC (Bld) 2 % Low 3 - 12 % [facility] Monocytes/100 WBC (Bld) 0.30 % [facility] Neutrophils/100 WBC (Bld) 73 % High 36 - 65 % [facility] Nucleated RBC/100 WBC (Bld) [Ratio] 0.0 % 0.0 per 100 WBC [facility] Platelet mean volume (Bld) [Entitic vol] 9.4 fL 8.1 - 13.5 fL [facility] Platelets (Bld) [#/Vol] 297 10*3/uL [facility] RBC (Bld) [#/Vol] 3.80 10*6/uL Low 3.95 - 5.1 1 m/uL [facility] Segmented neutrophils/100 WBC (Bld) 9.30 % High [facility] WBC other (Bld) [#/Vol] 12.6 High [facility] EKG 12 Leadon 06-11-2023 Atrial Rate 95 BPM [facility] P [place] 53 degrees [facility] P-R Interval 156 ms [facility] Q-T Interval 358 ms [facility] QRS Duration 88 ms [facility] QTc Calculation (Bazett) 449 ms [facility] R [place] 19 degrees [facility] T [place] 54 degrees [facility] Ventricular Rate 95 BPM [facility] Normal sinus rhythm Normal ECG When compared with ECG of 06-AUG-2022 17:11, No significant change was found Confirmed by Nathan Ardon MD ([id number]) on 06/11/2023 4:31:21 PM [facility] Nathan Ardon MD - 06/11/2023 Normal sinus rhythm Normal ECG When compared with ECG of 06-AUG-2022 17:11, No significant change was found Confirmed by Nathan Ardon MD ([id number]) on 06/11/2023 4:31:21 PM [facility] EKG Rhythm Stripon 3 [facility] Glucose, Whole Bloodon 06-11 Glucose [Mass/Vol] 407 mg/dL High 74 - 100 mg/dL [facility] Interpretation and review of laboratory results Abnormal [facility] Glucose [Mass/Vol] 473 mg/dL High 74 - 100 mg/dL [facility] Interpretation and review of laboratory results Abnormal [facility] Glucose [Mass/Vol] 336 mg/dL High 74 - 100 mg/dL [facility] Interpretation and review of laboratory results Abnormal [facility] Glucose [Mass/Vol] 168 mg/dL High 74 - 100 mg/dL [facility] Interpretation and review of laboratory results Abnormal [facility] Lactate, Sepsison 06-11-2023 Lactate (BldV) [Moles/Vol] 1.7 mmol/L 0.5 - 1.9 mmol/L [facility] Lactate (BldV) [Moles/Vol] 1.7 mmol/L 0.5 - 1.9 mmol/L [facility] Procalcitoninon 06-11-2023 Procalcitonin [Mass/Vol] 0.07 ng/mL [facility] - 0.09 ng/mL [facility] Comment on above: Suspected Sepsis: <0.50 ng/mL [...] entered into the Change in Procalcitonin Calculator ([email or web address]-cqf-[email or web address]) to determine the patient's Mortality Risk Prognosis In healthy neonates, plasma Procalcitonin (PCT) concentrations increase gradually after , reaching peak values at about 24 hours of age then decrease to normal values below 0.5 ng/mL by 48-72 hours of age. [facility] Troponinon 06-11-2023 Interpretation and review of laboratory results Abnormal [facility] Troponin I.cardiac High sensitivity method [Mass/Vol] 26 ng/L High 0 - 14 ng/L [facility] Comment on above: High Sensitivity Tro ponin values cannot be compared with other Troponin methodologies. [facility] CBC with Auto Differentialon 06-10-2023 Basophils (Bld) [#/Vol] 0.07 10*3/uL [facility] Basophils/100 WBC (Bld) 1 % 0 - 2 % [facility] Eosinophils (Bld) [#/Vol] 0.40 10*3/uL [facility] Eosinophils/100 WBC (Bld) 5 % High 1 - 4 % [facility] Erythrocyte distribution width (RBC) [Ratio] 14.0 % 11.8 - 14.4 % [facility] Hematocrit (Bld) [Volume fraction] 41.8 % 36.3 - 47.1 % [facility] Hemoglobin (Bld) [Mass/Vol] 13.3 g/dL 11.9 - 15.1 g/dL [facility] Immature granulocytes (Bld) [#/Vol] 0.16 10*3/uL [facility] Immature granulocytes/100 WBC (Bld) 2 % High 0 [facility] Interpretation and review of laboratory results Abnormal [facility] Lymphocytes/100 WBC (Bld) 34 % 24 - 43 % [facility] Lymphocytes/100 WBC (Bld) 2.92 % [facility] MCH (RBC) [Entitic mass] 31.4 pg 25.2 - 33.5 pg [facility] MCHC (RBC) [Mass/Vol] 31.8 g/dL 28.4 - 34.8 g/dL [facility] MCV (RBC) [Entitic vol] 98.6 fL 82.6 - 102.9 fL [facility] Monocytes/100 WBC (Bld) 8 % 3 - 12 % [facility] Monocytes/100 WBC (Bld) 0.67 % [facility] Neutrophils/100 WBC (Bld) 50 % 36 - 65 % [facility] Nucleated RBC/100 WBC (Bld) [Ratio] 0.0 % 0.0 per 100 WBC [facility] Platelet mean volume (Bld) [Entitic vol] 9.1 fL 8.1 - 13.5 fL [facility] Platelets (Bld) [#/Vol] 370 10*3/uL [facility] RBC (Bld) [#/Vol] 4.24 10*6/uL 3.95 - 5.1 1 m/uL [facility] Segmented neutrophils/100 WBC (Bld) 4.33 % [facility] WBC other (Bld) [#/Vol] 8.6 [facility] CMPon 06-10-2023 Albumin [Mass/Vol] 4.7 g/dL 3.5 - 5.2 g/dL [facility] Albumin/Globulin [Mass ratio] 1.6 {ratio} 1.0 - 2.5 [facility] ALP [Catalytic activity/Vol] 71 U/L 35 - 104 U/L [facility] ALT [Catalytic activity/Vol] 33 U/L 5 - 33 U/L [facility] Anion gap [Moles/Vol] 10 mmol/L 9 - 17 mmol/L [facility] AST [Catalytic activity/Vol] 33 U/L High NINF - 32 U/L [facility] Bilirubin [Mass/Vol] 0.2 mg/dL Low 0.3 - 1 .2 mg/dL [facility] Calcium [Mass/Vol] 10.2 mg/dL 8.6 - 10. 4 mg/dL [facility] Chloride [Moles/Vol] 98 mmol/L 98 - 10 7 mmol/L [facility] CO2 [Moles/Vol] 31 mmol/L 20 - 31 mmol/L [facility] Creatinine [Mass/Vol] 1.1 mg/dL High 0.5 - 0.9 mg/dL [facility] GFR/1.73 sq M.predicted MDRD (S/P/Bld) [Vol rate/Area] - PINF [facility] Comment on above: These results are not [...] 109 mg/dL High 70 - 99 mg/dL [facility] Interpretation and review of laboratory results Abnormal [facility] Potassium [Moles/Vol] 4.2 mmol/L 3.7 - 5.3 mmol/L [facility] Protein [Mass/Vol] 7.7 g/dL 6.4 - 8.3 g/dL [facility] Sodium [Moles/Vol] 139 mmol/L 135 - 144 mmol/L [facility] Urea nitrogen [Mass/Vol] 15 mg/dL 6 - 20 mg/dL [facility] Urea nitrogen/Creatinine [Mass ratio] 14 mg/mg 9 - 20 [facility] COVID-19, Rapidon 06-10-2023 SARS-CoV-2 (COVID-19) RdRp gene ASHLEY+probe Ql (Resp) Not detected Not Detected [facility] Comment on above: Rapid NAAT: The specimen [...] management decisions. Fact sheet for Healthcare Providers: https://www.fda.gov/media/975153/download Fact sheet for Patients: https://www.fda.gov/media/073063/download Methodology: Isothermal Nucleic Acid Amplification Specimen Description .NASOPHARYNGEAL SWAB [facility] CT CERVICAL SPINE WO LOKESH Ton 06-10-2023 1. No acute traumati c abnormality involving the cervical spine. [facility] RIS CONSOLIDATED EXAMINATION: CT OF THE CERVICAL SPINE [...] There is no prevertebral soft tissue swelling. [facility] Niles Barbosa MD - 06/10/2023 EXAMINATION: [...] acute traumatic abnormality involving the cervical spine. [facility] Radiology Study observation (narrative) [facility] CT CERVICAL SPINE WO CONTRAS TOrdered By: Niles Barbosa on 06-10-2023 [facility] Work Phone: CT CHEST PULMONARY EMBOLISM W CONTRASTon 06-10-2023 Mild nonspecific bibasilar interstitial infiltrates. Coronary artery disease. [facility] EXAMINATION: CTA OF THE CHEST 06/10/2023 [...] No acute bone or soft tissue abnormality. [facility] Zak Duque MD - 06/10/2023 EXAMINATION: CTA [...] nonspecific bibasilar interstitial infiltrates. Coronary artery disease. [facility] Radiology Study observation (narrative) [facility] CT Head WO Contraston 2022 No acute intracrania l abnormality. [facility] CON[facility] EXAMINATION: CT OF THE HEAD WITHOUT [...] of the visualized skull or soft tissues. [facility] Zak Duque MD - 06/10/2023 EXAMINATION: [...] soft tissues. IMPRESSION: No acute intracranial abnormality. [facility] Radiology Study observation (narrative) [facility] CT Head WO ContrastOrdered B y: Zak Duque on 06-10-2023 [facility] Work Phone: Magnesiumon 06-10-2023 Magnesium [Mass/Vol] 2.0 mg/dL 1.6 - 2 .6 mg/dL [facility] No Panel Informationon 06-10 [facility] Troponinon 06-10-2023 Interpretation and review of laboratory results Abnormal [facility] Troponin I.cardiac High sensitivity method [Mass/Vol] 27 ng/L High 0 - 14 ng/L [facility] Comment on above: High Sensitivity Tro ponin values cannot be compared with other Troponin methodologies. [facility] XR CHEST (2 VW)on 06-10-2023 No acute process. [facility] EXAMINATION: TWO XRAY VIEWS OF THE CHEST 06/10/2023 9:33 pm COMPARISON: None. HISTORY: ORDERING SYSTEM PROVIDED HISTORY: Cough x1wk TECHNOLOGIST PROVIDED HISTORY: Cough x1wk FINDINGS: The lungs are without acute focal process. There is no effusion or pneumothorax. The cardiomediastinal silhouette is without acute process. The osseous structures are without acute process. [facility] Zak Duque MD - 06/10/2023 EXAMINATION: TWO XRAY VIEWS OF THE CHEST 06/10/2023 9:33 pm COMPARISON: None. HISTORY: ORDERING SYSTEM PROVIDED HISTORY: Cough x1wk TECHNOLOGIST PROVIDED HISTORY: Cough x1wk FINDINGS: The lungs are without acute focal process. There is no effusion or pneumothorax. The cardiomediastinal silhouette is without acute process. The osseous structures are without acute process. IMPRESSION: No acute process. [facility] Radiology Study observation (narrative) [facility] POINT OF CARE GLUCOSEon 05- Glucose [Mass/Vol] 136 mg/dL Critically high 74-106 [facility] Comment on above: Performed By: #### P OCGLUC #### [facility] [address] [place] [address] Dr. Chidi Reyes POINT OF CARE GLUCOSEon 04- Glucose [Mass/Vol] 129 mg/dL Critically high 74-106 [facility] Comment on above: Performed By: #### P OCGLUC #### [facility] [address] [place], [place] [address] Dr. Chidi Reyes MRI THORACIC SPINE WO CONTRA STon 12-28-2022 No acute abnormality in the thoracic spine. No significant spinal canal or neural foraminal narrowing. [facility] EXAMINATION: MRI OF THE THORACIC SPINE [...] neural foraminal narrowing of the thoracic spine. [facility] Sessions, Shabbir, - 12/28/2022 EXAMINATION: MRI OF THE THORACIC [...] significant spinal canal or neural foraminal narrowing. [employer] Work Phone: Radiology Study observation (narrative) [employer] Phone: MRI THORACIC SPINE WO CONTRA STOrdered By: Shabbir Weaver on 12-28-2022 [employer] Work Phone: Colonoscopy studyon 12-09-19 No dictation [employer] Work Phone: Colonoscopy studyOrdered By: User Epic on 12-08-2022 [employer] Work Phone: Glucose, Whole Bloodon 12-08 Glucose [Mass/Vol] 117 mg/dL High 74 - 100 mg/dL [email or web address] Interpretation and review of laboratory results Abnormal [email or web address] XR TSPINE 2 VIEWSon 12-02-19 XR TSPINE 2 VIEWS EXAMINATION: XR TSPI [...] by: PHILLIP CAMACHO Date: 2022-12-01 09:45 Normal [facility] MRI LUMBAR SPINE WO CONTRAST on 11-17-2022 Mild degenerative change without canal stenosis or foraminal narrowing. RECOMMENDATIONS: Unavailable [facility]IS CONSOL[facility] EXAMINATION: MRI OF THE LUMBAR SPINE [...] is no canal stenosis or foraminal narrowing. [facility] Vern Choi MD - 11/17/2022 EXAMINATION: MRI [...] canal stenosis or foraminal narrowing. RECOMMENDATIONS: Unavailable [employer] Phone: Radiology Study observation (narrative) [employer] Phone: MRI LUMBAR SPINE WO CONTRAST Ordered By: Vern Olivo on 11-17-2022 [employer] Phone: Basic Metabolic Panelon -0 Anion gap [Moles/Vol] 14.5 mmol/L Normal 6.0-15.0 [facility] Comment on above: Performed By: #### D IFF CBC, BMP #### [facility] [address] Calcium [Mass/Vol] 9.2 mg/dL Normal 8.2-10.2 [facility] Comment on above: Performed By: #### D IFF CBC, BMP #### [facility] [address] Chloride [Moles/Vol] 101 mmol/L Normal 95-114 [facility] [place] Comment on above: Performed By: #### D IFF CBC, BMP #### [facility] [address] CO2 [Moles/Vol] 24.0 mmol/L Normal 22.0-30.0 [facility] Comment on above: Performed By: #### D IFF CBC, BMP #### [facility] [address] [place] [address] [place] Creatinine [Mass/Vol] 1.02 mg/dL Normal 0.44-1.03 [facility] Comment on above: Performed By: #### D IFF CBC, BMP #### [facility] [address] [place] [address] [place] Creatinine Clr Calc Pharmacy 78.76 [facility] Comment on above: Result Comment: PERF ORMED BY: [place] [address] PATHOLOGIST HEALTH INFORMATION MANAGER GRZEGORZ DUMONT M.D. Performed By: #### D IFF CBC, BMP #### [facility] [address] [place] [address] [place] Estimated GFR ( Mai > 60 [facility] Comment on above: Result Comment: GFR estimated reference range: According to KDOQI guidelines, <60 ml/min/1.73m2 is sufficient to diagnose a patient with chronic kidney disease. Performed By: #### D IFF CBC, BMP #### [facility] [address] [place] [address] [place] Estimated GFR (Non- Am 58 Normal [facility] Comment on above: Performed By: #### D IFF CBC, BMP #### [facility] [address] Glucose [Mass/Vol] 223 mg/dL High 70-100 [facility] Comment on above: Result Comment: [place] om Glucose Reference Range is dependent on time and content of last meal. Glucose of more than 200 mg/dL in a nonstressed, ambulatory subject supports the diagnosis of Diabetes Mellitus. ADA recommended reference range Performed By: #### D IFF CBC, BMP #### [facility] [address] Potassium [Moles/Vol] 4.5 mmol/L Normal 3.5-5.1 [facility] Comment on above: Performed By: #### D IFF CBC, BMP #### [address] Sodium [Moles/Vol] 135 mmol/L Low 136-146 [facility] Comment on above: Performed By: #### D IFF CBC, BMP #### [facility] [address] Urea nitrogen [Mass/Vol] 29 mg/dL High 9-23 [facility] Comment on above: Performed By: #### D IFF CBC, BMP #### [facility] [address] [place] [address] Glucose Poct Glucometerson 0 10-04-2022 Glucose [Mass/Vol] 239 mg/dL Normal [facility] Comment on above: Result Comment: [place] om Glucose Reference Range is dependent on time and content of last meal. Glucose of more than 200 mg/dL in a nonstressed, ambulatory subject supports the diagnosis of Diabetes Mellitus. PERFORMED BY: [place] [address] PATHOLOGIST HEALTH INFORMATION MANAGER GRZEGORZ DUMONT M.D. Performed By: #### G LULS #### Point of Care testing , Glucose [Mass/Vol] 234 mg/dL Normal [facility] Comment on above: Result Comment: [place] om Glucose Reference Range is dependent on time and content of last meal. Glucose of more than 200 mg/dL in a nonstressed, ambulatory subject supports the diagnosis of Diabetes Mellitus. PERFORMED BY: [facility] [address] [place] [address] PATHOLOGIST HEALTH INFORMATION MANAGER GRZEGORZ DUMONT M.D. Performed By: #### G [...] developed and its performance characteristic determined by [employer] and validated at [facility]. This test has not been FDA [...] for SARS Antigen by RY PERFORMED BY: [facility] [place] [address] PATHOLOGIST HEALTH INFORMATION MANAGER GRZEGORZ DUMONT M.D. Normal [facility] Comment on above: Performed By: #### C OVID-19 TAB, SOFIANEG #### [address] COVID-19 SOFIAOrdered By: Lucas Oliver on 09-30-2022 SARS-CoV+SARS-CoV-2 (COVID-19) Ag IA.rapid Ql (Resp) Negative Negative [facility] Comment on above: This is a duplicate Tab SARS Antigen (RY) result to be used for statistical tracking purpose only. No Panel InformationOrdered By: Shiraz Sherman on 09-30-2022 SARS Antigen (LFIA) [facility] Tab Ag Negativeon 09-30-19 23 Tab Ag Negative Negative Normal Negative [facility] Comment on above: Result Comment: This is a duplicate Tab SARS Antigen (RY) result to be used for statistical tracking purpose only. PERFORMED BY: [place] [id number] PATHOLOGIST HEALTH INFORMATION MANAGER RGZEGORZ DUMONT M.D. Performed By: #### C OVID-19 TAB, SOFIANEG #### [address] Tilt Table Teston 09-29-2022 Sharon Vargas MD - 09/29/2022 11:59 PM EST [address] [id number] TILT TABLE TEST PATIENT NAME: RISA WARNER : 1975 MED REC NO: [id number] ROOM: ACCOUNT NO: [id number] ADMIT DATE: 09/29/2022 PROVIDER: Sharon Vargas MD [...] up with their primary care physician and/or chemistry tutor as previously scheduled. STUDY CONCLUSIONS: Abnormal head [...] VARGAS MD YURY/JULIUS_KIARA Doc#: Unknown CC: Vivian Oseguera, JOINTER MACHINE-YEAST WASHER [employer] Phone: Tilt Table TestOrdered By: Cheo Vargas on 09-29-2022 [employer] Phone: LDL Cholesterol, Directon Cholesterol in LDL [Mass/Vol] 48 mg/dL NINF - 100 mg/dL [facility] Farrukh 09-21-2022 ALT [Catalytic activity/Vol] U/L Low 5 - 33 U/L [facility] Interpretation and review of laboratory results Abnormal [facility] Fredy 09-21-2022 AST [Catalytic activity/Vol] U/L NINF - 32 U/L [facility] Band form neutrophils/100 WB C Manual cnt (Bld)Ordered By: Shiraz Sherman on 09-21-2022 Band form neutrophils/100 WBC (Bld) 4 % 0-5 [facility] Basic Metabolic Panelon 08-27 Anion gap [Moles/Vol] 14.4 mmol/L Normal 6.0-15.0 [facility] Comment on above: Performed By: #### D IFF CBC, BMP #### [facility] [address] Calcium [Mass/Vol] 10.0 mg/dL Normal 8.2-10.2 [facility] Comment on above: Result Comment: PERF ORMED BY: [facility] [address] [place] [address] PATHOLOGIST HEALTH INFORMATION MANAGER GRZEGORZ DUMONT M.D. Performed By: #### D IFF CBC, BMP #### [facility] [address] [place] [id number] [place] Chloride [Moles/Vol] 99 mmol/L Normal 95-114 [facility] Comment on above: Performed By: #### D IFF CBC, BMP #### [facility] [address] [place] [id number] [place] CO2 [Moles/Vol] 23.5 mmol/L Normal 22.0-30.0 [facility] Comment on above: Performed By: #### D IFF CBC, BMP #### [facility] [address] [place] [id number] [place] Creatinine [Mass/Vol] 0.91 mg/dL Normal 0.44-1.03 [facility] Comment on above: Performed By: #### D IFF CBC, BMP #### [facility] [address] [place] [address] [place] Estimated GFR ( Mai > 60 [facility] Comment on above: Result Comment: GFR estimated reference range: According to KDOQI guidelines, <60 ml/min/1.73m2 is sufficient to diagnose a patient with chronic kidney disease. Performed By: #### D IFF CBC, BMP #### [facility] [address] [place] [address] [place] Estimated GFR (Non- Am > 60 [facility] Comment on above: Performed By: #### D IFF CBC, BMP #### [facility] [address] Glucose [Mass/Vol] 270 mg/dL High 70-100 [facility] Comment on above: Result Comment: [place] om Glucose Reference Range is dependent on time and content of last meal. Glucose of more than 200 mg/dL in a nonstressed, ambulatory subject supports the diagnosis of Diabetes Mellitus. ADA recommended reference range Performed By: #### D IFF CBC, BMP #### [facility] [address] [place] [address] [place] Potassium [Moles/Vol] 4.9 mmol/L Normal 3.5-5.1 [facility] Comment on above: Performed By: #### D IFF CBC, BMP #### [facility] [address] [place] [address] [place] Sodium [Moles/Vol] 132 mmol/L Low 136-146 [facility] Comment on above: Performed By: #### D IFF CBC, BMP #### [facility] [address] [place] [id number] [place] Urea nitrogen [Mass/Vol] 20 mg/dL Normal 9-23 [facility] Comment on above: Performed By: #### D IFF CBC, BMP #### [facility] [address] [place] [id number] [place] Anion gap [Moles/Vol] 15 mmol/L 9 - 17 mmol/L [facility] Calcium [Mass/Vol] 10.2 mg/dL 8.6 - 10. 4 mg/dL [facility] Chloride [Moles/Vol] 98 mmol/L 98 - 10 7 mmol/L [facility] CO2 [Moles/Vol] 22 mmol/L 20 - 31 mmol/L [facility] Creatinine [Mass/Vol] 0.85 mg/dL 0.50 - 0.90 mg/dL [facility] GFR/1.73 sq M.predicted MDRD (S/P/Bld) [Vol rate/Area] - PINF [facility] Comment on above: Effective Jun 28, 2022 [...] 271 mg/dL High 70 - 99 mg/dL [facility] Interpretation and review of laboratory results Abnormal [facility] Potassium [Moles/Vol] 4.8 mmol/L 3.7 - 5.3 mmol/L [facility] Sodium [Moles/Vol] 135 mmol/L 135 - 144 mmol/L [facility] Urea nitrogen (BldV) [Mass/Vol] 22 mg/dL High 6 - 20 mg/dL [facility] Urea nitrogen/Creatinine (Bld) [Mass ratio] 26 High 9 - 20 [facility] Basophils Auto (Bld) [#/Vol] Ordered By: Shiraz Sherman on 09-21-2022 Basophils (Bld) [#/Vol] N/A [facility] Basophils/100 WBC Auto (Bld) Ordered By: Shiraz Sherman on 09-21-2022 Basophils/100 WBC (Bld) N/A [facility] Basophils/100 WBC Manual cnt (Bld)Ordered By: Shiraz Sherman on 09-21-2022 Basophils/100 WBC (Bld) 1 % 0-2 [facility] CBC with Auto Differentialon 12-27-2022 Absolute Eos # 0.57 [facility] Absolute Immature Granulocyte 0.19 [facility] Absolute Lymph # 3.29 [facility] Absolute [place] # 0.66 [facility] Basophils (Bld) [#/Vol] 0.11 10*3/uL [facility] Basophils/100 WBC (Bld) 1 % 0 - 2 % [facility] Eosinophils/100 WBC (Bld) 6 % High 1 - 4 % [facility] Hematocrit (Bld) [Volume fraction] 43.2 % 36.3 - 47.1 % [facility] Hemoglobin (Bld) [Mass/Vol] 13.9 g/dL 11.9 - 15.1 g/dL [facility] Immature granulocytes/100 WBC (Bld) 2 % High 0 [facility] Interpretation and review of laboratory results Abnormal [facility] Lymphocytes/100 WBC (Bld) 35 % 24 - 43 % [facility] MCH (RBC) [Entitic mass] 32.3 pg 25.2 - 33.5 pg [facility] MCHC (RBC) [Mass/Vol] 32.2 g/dL 28.4 - 34.8 g/dL [facility] MCV (RBC) [Entitic vol] 100.5 fL 82.6 - 102.9 fL [facility] Monocytes/100 WBC (Bld) 7 % 3 - 12 % [facility] NRBC Automated 0.0 0.0 per 100 WBC [facility] Platelet distribution width (Bld) [Ratio] 13.2 % 11.8 - 14.4 % [facility] Platelet mean volume (Bld) [Entitic vol] 9.1 fL 8.1 - 13.5 fL [facility] Platelets (Bld) [#/Vol] 393 10*3/uL [facility] RBC (Bld) [#/Vol] 4.30 10*6/uL 3.95 - 5.1 1 m/uL [facility] Segmented neutrophils/100 WBC (Bld) 49 % 36 - 65 % [facility] Segs Absolute 4.59 [facility] WBC (Bld) [#/Vol] 9.4 10*3/uL [facility] Creatinine and Glomerular fi ltration rate.predicted panel (S/P/Bld)Ordered By: Shiraz Sherman on 09-21-2022 Creatinine [Mass/Vol] 0.91 mg/dL 0.44-1.03 [facility] Diff and CBCon 09-21-2022 Band form neutrophils/100 WBC (Bld) 4 % Normal 0-5 [facility] Comment on above: Performed By: #### D IFF CBC, BMP #### [facility] [address] Basophils/100 WBC (Bld) 1 % Normal 0-2 [facility] Comment on above: Performed By: #### D IFF CBC, BMP #### [facility] [address] Eosinophils/100 WBC (Bld) 7 % High 1-3 [facility] Comment on above: Performed By: #### D IFF CBC, BMP #### [facility] [address] Erythrocyte distribution width (RBC) [Ratio] 14.2 % Normal 11.9-15.3 [facility] Comment on above: Performed By: #### D IFF CBC, BMP #### [facility] [address] [place] [address] Giant Platelet Tally 2 /100{WBC} Normal [facility] Comment on above: Performed By: #### D IFF CBC, BMP #### [facility] [address] Hematocrit (Bld) [Volume fraction] 38.8 % Normal 34.0-46.4 [facility] Comment on above: Performed By: #### D IFF CBC, BMP #### [facility] [address] [place] [address] [place] Hemoglobin (Bld) [Mass/Vol] 12.9 g/dL Normal 11.8-15.4 [facility] Comment on above: Performed By: #### D IFF CBC, BMP #### [facility] [address] [place] [address] Lymphocytes/100 WBC (Bld) 15 % Low 18-42 [facility] Comment on above: Performed By: #### D IFF CBC, BMP #### [address] MCH (RBC) [Entitic mass] 31.0 pg Normal 24.7-34.3 [facility] Comment on above: Performed By: #### D IFF CBC, BMP #### [address] MCV (RBC) [Entitic vol] 93.3 fL Normal 80-100 [facility] Comment on above: Performed By: #### D IFF CBC, BMP #### [address] Mean Corpuscular HGB Conc 33.2 g/dL Normal 32.0-35.0 [facility] Comment on above: Performed By: #### D IFF CBC, BMP #### [address] Metamyelocytes 2 % High 0-0 [facility] Comment on above: Performed By: #### D IFF CBC, BMP #### [address] Monocytes/100 WBC (Bld) 9 % Normal 2-11 [facility] Comment on above: Performed By: #### D IFF CBC, BMP #### [address] Myelocytes 1 % High 0-0 [facility] Comment on above: Performed By: #### D IFF CBC, BMP #### [facility] [address] [place] [address] Platelet Estimate Normal Normal Normal [facility] Comment on above: Performed By: #### D IFF CBC, BMP #### [address] Platelet mean volume (Bld) [Entitic vol] 7.4 fL Normal 6.3-10.7 [facility] Comment on above: Result Comment: PERF ORMED BY: [place] [address] PATHOLOGIST HEALTH INFORMATION MANAGER GRZEGORZ DUMONT M.D. Performed By: #### D IFF CBC, BMP #### [address] Platelet Morphology Normal Normal Normal [facility] Comment on above: Result Comment: PERF ORMED BY: [place] [address] PATHOLOGIST HEALTH INFORMATION MANAGER GRZEGORZ DUMONT M.D. Performed By: #### D IFF CBC, BMP #### [address] Platelets (Bld) [#/Vol] 363 10*3/uL Normal 150-450 [facility] Comment on above: Performed By: #### D IFF CBC, BMP #### [address] RBC (Bld) [#/Vol] 4.16 10*6/uL Normal 3.60-5.00 [facility] Comment on above: Performed By: #### D IFF CBC, BMP #### [address] RBC morphology finding Nom (Bld) Normal Normal Normal [facility] Comment on above: Performed By: #### D IFF CBC, BMP #### [facility] [address] [place] [address] [place] Segmented neutrophils/100 WBC (Bld) 62 % Normal 50-70 [facility] Comment on above: Performed By: #### D IFF CBC, BMP #### [facility] [address] [place] [address] [place] WBC (Bld) [#/Vol] 8.4 10*3/uL Normal 3.8-11.6 [facility] Comment on above: Performed By: #### D IFF CBC, BMP #### [address] ECG 12 lead ECGon 09-21-2022 ECG 12 lead ECG [facility] [place] [place] [address] Electrocardiograph Report Signed Patient: Risa Warner MR#: [id number] 52 : 1975 Acct:[id number] Age/Sex: 47 / F ADM Date: 09/21/22 Loc: Room: Type: [facility] Attending Dr: Shiraz Sherman MD Ordering Provider: [...] PM Referred By: DENYS Electronically Signed By:JOHN SANHCEZ MD Transcribed By: MUS Signed By John Sanchez MD 1 11/22/21 1710 Normal [facility] Eosinophils Auto (Bld) [#/Vo l]Ordered By: Shiraz Sherman on 09-21-2022 Eosinophils (Bld) [#/Vol] N/A [facility] Eosinophils/100 WBC Auto (Bl d)Ordered By: Shiraz Sherman on 09-21-2022 Eosinophils/100 WBC (Bld) N/A [facility] Eosinophils/100 WBC Manual c nt (Bld)Ordered By: Shiraz Sherman on 09-21-2022 Eosinophils/100 WBC (Bld) 7 % 1-3 [facility] Erythrocyte distribution wid th Auto (RBC) [Ratio]Ordered By: Shiraz Sherman on 09-21-2022 Erythrocyte distribution width (RBC) [Ratio] 14.2 % 11.9-15.3 [facility] Estimated glomerular filtrat ion rate (GFR) non- AmericanOrdered By: Shiraz Sherman on 09-21-2022 GFR/1.73 sq M.predicted among non-blacks MDRD (S/P/Bld) [Vol rate/Area] > 60 mL/Min [facility] Giant platelets/100 leukocyt es [Ratio] in Blood by Manual countOrdered By: Shiraz Sherman on 09-21-2022 Giant platelets/100 WBC Manual cnt (Bld) [Ratio] 2 /100{WBC} [facility] Hematocrit Auto (Bld) [Volum e fraction]Ordered By: Shiraz Sherman on 09-21-2022 Hematocrit (Bld) [Volume fraction] 38.8 % 34.0-46.4 [facility] Hemoglobin [Mass/volume] in BloodOrdered By: Shiraz Sherman on 09-21-2022 Hemoglobin (Bld) [Mass/Vol] 12.9 g/dL 11.8-15.4 [facility] Leukocytes [#/volume] correc priya for nucleated erythrocytes in Blood by Automated counOrdered By: Shiraz Sherman on 09-21-2022 WBC corrected for nucl RBC Auto (Bld) [#/Vol] 8.4 10*3/uL 3.8-11.6 [facility] Lipid Panelon 09-21-2022 Cholesterol [Mass/Vol] 215 mg/dL High NINF - 200 mg/dL [email or web address] Comment on above: Cholesterol Guidelines: <200 Desirable 200-240 Borderline >240 Undesirable Cholesterol in HDL [Mass/Vol] 21 mg/dL Low 40 - PINF mg/dL [email or web address] Comment on above: HDL Guidelines: <40 Undesirable 40-59 Borderline >59 Desirable Cholesterol.total/Chol esterol in HDL [Mass ratio] 10.2 {ratio} High NINF - 5 [email or web address] Interpretation and review of laboratory results Abnormal [email or web address] LDL Cholesterol 0 - 130 mg/dL [email or web address] Comment on above: Calculation not tracy d for Triglyceride value greater than 400 mg/dL. Direct LDL reflexed LDL Guidelines: <100 Desirable 100-129 Near to/above Desirable 130-159 Borderline >159 Undesirable Direct (measured) LDL and calculated LDL are not interchangeable tests. Triglyceride [Mass/Vol] 1567 mg/dL High NINF - 150 mg/dL [email or web address] Comment on above: Triglyceride Guidelines: <150 Desirable 150-199 Borderline 200-499 High >499 Very high Based on AHA Guidelines for fasting triglyceride, June 2012. [facility] Lymphocytes Auto (Bld) [#/Vo l]Ordered By: Shiraz Sherman on 09-21-2022 Lymphocytes (Bld) [#/Vol] N/A [facility] Lymphocytes/100 WBC Auto (Bl d)Ordered By: Shiraz Sherman on 09-21-2022 Lymphocytes/100 WBC (Bld) N/A [facility] Lymphocytes/100 WBC Manual c nt (Bld)Ordered By: Shiraz Sherman on 09-21-2022 Lymphocytes/100 WBC (Bld) 15 % 18-42 [facility] MCH Auto (RBC) [Entitic mass ]Ordered By: Shiraz Sherman on 09-21-2022 MCH (RBC) [Entitic mass] 31.0 pg 24.7-34.3 [facility] MCHC Auto (RBC) [Mass/Vol]Or dered By: Shiraz Sherman on 09-21-2022 MCHC (RBC) [Mass/Vol] 33.2 g/dL 32.0-35.0 [facility] MCV Auto (RBC) [Entitic vol] Ordered By: Shiraz Sherman on 09-21-2022 MCV (RBC) [Entitic vol] 93.3 fL 80-100 [facility] Metamyelocytes/100 WBC Manua l cnt (Bld)Ordered By: Shiraz Sherman on 09-21-2022 Metamyelocytes/100 WBC (Bld) 2 % 0-0 [facility] Microalbumin, Uron 2 Albumin/Creatinine DL <= 20 mg/L (24H U) [Mass ratio] mg/L NINF - 21 mg/L [facility] Albumin/Creatinine DL <= 20 mg/L (U) [Ratio] Can not be calculated [facility] Creatinine [Mass/Vol] 80.3 mg/dL 28.0 - 217.0 mg/dL [facility] Monocytes Auto (Bld) [#/Vol] Ordered By: Shiraz Sherman on 09-21-2022 Monocytes (Bld) [#/Vol] N/A [facility] Monocytes/100 WBC Auto (Bld) Ordered By: Shiraz Sherman on 09-21-2022 Monocytes/100 WBC (Bld) N/A [facility] Monocytes/100 WBC Manual cnt (Bld)Ordered By: Shiraz Sherman on 09-21-2022 Monocytes/100 WBC (Bld) 9 % 2-11 [facility] Myelocytes/100 WBC Manual cn t (Bld)Ordered By: Shiraz Sherman on 09-21-2022 Myelocytes/100 WBC (Bld) 1 % 0-0 [facility] Neutrophils Auto (Bld) [#/Vo l]Ordered By: Shiraz Sherman on 09-21-2022 Neutrophils (Bld) [#/Vol] N/A [facility] Neutrophils/100 WBC Auto (Bl d)Ordered By: Shiraz Sherman on 09-21-2022 Neutrophils/100 WBC (Bld) N/A [facility] No Panel InformationOrdered By: Shiraz Sherman on 09-21-2022 Estimated GFR () > 60 mL/Min [facility] Comment on above: GFR estimated refere nce range: According to KDOQI guidelines, <60 ml/min/1.73m2 is sufficient to diagnose a patient with chronic kidney disease. Pharmacy Creatinine Clearance (Chem N/A [facility] No Panel Informationon 09-21 [facility] Nucleated erythrocytes [Pres ence] in Blood by Automated countOrdered By: Shiraz Sherman on 09-21-2022 Nucleated RBC Auto Ql (Bld) N/A [facility] Platelet adequacy [Presence] in Blood by Light microscopyOrdered By: Shiraz Sherman on 09-21-2022 Platelets LM Ql (Bld) Normal Normal [facility] Platelet mean volume Auto (B ld) [Entitic vol]Ordered By: Shiraz Sherman on 09-21-2022 Platelet mean volume (Bld) [Entitic vol] 7.4 fL 6.3-10.7 [facility] Platelet morphology finding [Identifier] in BloodOrdered By: Shiraz Sherman on 09-21-2022 Platelet morphology finding Nom (Bld) Normal Normal [facility] Platelets Auto (Bld) [#/Vol] Ordered By: Shiraz Sherman on 09-21-2022 Platelets (Bld) [#/Vol] 363 10*3/uL 150-450 [facility] RBC Auto (Bld) [#/Vol]Ordere d By: Shiraz Sherman on 09-21-2022 RBC (Bld) [#/Vol] 4.16 10*6/uL 3.60-5.00 [facility] RBC morphologyOrdered By: Lucas Oil[employer] on 09-21-2022 RBC morphology finding Nom (Bld) Normal Normal [facility] Segmented neutrophils/100 WB C Manual cnt (Bld)Ordered By: Shiraz Sherman on 09-21-2022 Segmented neutrophils/100 WBC (Bld) 62 % 50-70 [facility] Serum or plasma anion gap de terminationOrdered By: Shiraz Sherman on 09-21-2022 Anion gap [Moles/Vol] 14.4 mmol/L 6.0-15.0 [facility] Serum or plasma calcium josh urement (mass/volume)Ordered By: Shiraz Sherman on 09-21-2022 Calcium [Mass/Vol] 10.0 mg/dL 8.2-10.2 [facility] Serum or plasma chloride claus surement (moles/volume)Ordered By: Shiraz Sherman on 09-21-2022 Chloride [Moles/Vol] 99 mmol/L 95-114 [facility] Serum or plasma glucose josh urement (mass/volume)Ordered By: Shiraz Sherman on 09-21-2022 Glucose [Mass/Vol] 270 mg/dL 70-100 [facility] Comment on above: ADA recommended refe rence rangeRandom Glucose Reference Range is dependent on time and content of last meal. Glucose of more than 200 mg/dL in a nonstressed, ambulatory subject supports the diagnosis of Diabetes Mellitus. Serum or plasma potassium me asurement (moles/volume)Ordered By: Shiraz Sherman on 09-21-2022 Potassium [Moles/Vol] 4.9 mmol/L 3.5-5.1 [facility] Serum or plasma sodium measu rement (moles/volume)Ordered By: Shiraz Sherman on 09-21-2022 Sodium [Moles/Vol] 132 mmol/L 136-146 [facility] Serum or plasma total carbon dioxide measurement (moles/volume)Ordered By: Shiraz Sherman on 09-21-2022 CO2 [Moles/Vol] 23.5 mmol/L 22.0-30.0 [facility] Serum or plasma urea nitroge n measurement (mass/volume)Ordered By: Shiraz Sherman on 09-21-2022 Urea nitrogen [Mass/Vol] 20 mg/dL 06-18 [facility] WBC Auto (Bld) [#/Vol]Ordere d By: Shiraz Sherman on 09-21-2022 WBC (Bld) [#/Vol] 8.4 10*3/uL 3.8-11.6 [facility] POINT OF CARE GLUCOSEon 08-27 Glucose [Mass/Vol] 151 mg/dL Critically high 74-106 [facility] Comment on above: Performed By: #### P OCGLUC #### [facility] [address] [place], [place] [address] Dr. Chidi Reyes POINT OF CARE GLUCOSEon 08-26 Glucose [Mass/Vol] 184 mg/dL Critically high 74-106 [facility] Comment on above: Performed By: #### P OCGLUC ####[facility] [address] [place] [id number] Reyes POINT OF CARE GLUCOSEon 07-27 Glucose [Mass/Vol] 95 mg/dL Normal 74-106 [facility] Comment on above: Performed By: #### P OCGLUC ####[facility] [address] [place] [id number] Reyes Basic Metabolic Panelon 07-27 Anion gap [Moles/Vol] 18 mmol/L High 9 - 17 mmol/L [facility] Calcium [Mass/Vol] 9.6 mg/dL 8.6 - 10. 4 mg/dL [facility] Chloride [Moles/Vol] 98 mmol/L 98 - 10 7 mmol/L [facility] CO2 [Moles/Vol] 22 mmol/L 20 - 31 mmol/L [facility] Creatinine [Mass/Vol] 0.91 mg/dL High 0.50 - 0.90 mg/dL [facility] GFR/1.73 sq M.predicted MDRD (S/P/Bld) [Vol rate/Area] - PINF [facility] Comment on above: Effective Jun 28, 2022 [...] 207 mg/dL High 70 - 99 mg/dL [facility] Interpretation and review of laboratory results Abnormal [facility] Potassium [Moles/Vol] 4.8 mmol/L 3.7 - 5.3 mmol/L [facility] Sodium [Moles/Vol] 138 mmol/L 135 - 144 mmol/L [facility] Urea nitrogen (BldV) [Mass/Vol] 28 mg/dL High 6 - 20 mg/dL [facility] Urea nitrogen/Creatinine (Bld) [Mass ratio] 31 High 9 - 20 [facility] CBC with Auto Differentialon 08-06-2022 Absolute Eos # 0.35 [place] [facility] Absolute Immature Granulocyte 0.10 [facility] Absolute Lymph # 3.09 [facility] Absolute [place] # 0.73 [facility] Basophils (Bld) [#/Vol] 0.09 10*3/uL [facility] Basophils/100 WBC (Bld) 1 % 0 - 2 % [facility] Eosinophils/100 WBC (Bld) 4 % 1 - 4 % [facility] Hematocrit (Bld) [Volume fraction] 39.6 % 36.3 - 47.1 % [facility] Hemoglobin (Bld) [Mass/Vol] 12.8 g/dL 11.9 - 15.1 g/dL [facility] Immature granulocytes/100 WBC (Bld) 1 % High 0 [facility] Interpretation and review of laboratory results Abnormal [facility] Lymphocytes/100 WBC (Bld) 36 % 24 - 43 % [facility] MCH (RBC) [Entitic mass] 31.3 pg 25.2 - 33.5 pg [facility] MCHC (RBC) [Mass/Vol] 32.3 g/dL 28.4 - 34.8 g/dL [facility] MCV (RBC) [Entitic vol] 96.8 fL 82.6 - 102.9 fL [facility] Monocytes/100 WBC (Bld) 9 % 3 - 12 % [facility] NRBC Automated 0.0 0.0 per 100 WBC [facility] Platelet distribution width (Bld) [Ratio] 13.2 % 11.8 - 14.4 % [facility] Platelet mean volume (Bld) [Entitic vol] 8.9 fL 8.1 - 13.5 fL [facility] Platelets (Bld) [#/Vol] 368 10*3/uL [facility] RBC (Bld) [#/Vol] 4.09 10*6/uL 3.95 - 5.1 1 m/uL [facility] Segmented neutrophils/100 WBC (Bld) 49 % 36 - 65 % [facility] Segs Absolute 4.20 [facility] WBC (Bld) [#/Vol] 8.6 10*3/uL [facility] D-Dimer, Quantitativeon 11 D-Dimer, Quant 0.39 [facility] Comment on above: When combined with a [...] more prevalent in patients with distal DVT. [facility] Troponinon 08-06-2022 Interpretation and review of laboratory results Abnormal [facility] Troponin, High Sensitivity 20 ng/L High 0 - 14 ng/L [facility] Comment on above: High Sensitivity Troponin values cannot be compared with other Troponin methodologies. Patients with high levels of Biotin oral intake (i.e >5mg/day) may have falsely decreased Troponin levels. Samples collected within 8 hours of biotin intake may require additional information for diagnosis. [facility] Interpretation and review of laboratory results Abnormal [facility] Troponin, High Sensitivity 19 ng/L High 0 - 14 ng/L [facility] Comment on above: High Sensitivity Troponin values cannot be compared with other Troponin methodologies. Patients with high levels of Biotin oral intake (i.e >5mg/day) may have falsely decreased Troponin levels. Samples collected within 8 hours of biotin intake may require additional information for diagnosis. [facility] XR CHEST PORTABLEon 08-06-20 No evidence of acute cardiopulmonary process. Large body habitus. [facility] EXAMINATION: ONE XRAY VIEW OF THE [...] is present over the lower thoracic spine. [facility] Cristina English MD - 08/06/2022 EXAMINATION: [...] of acute cardiopulmonary process. Large body habitus. [employer] Phone: Radiology Study observation (narrative) [employer] Phone: XR CHEST PORTABLEOrdered By: Cristina English on 08-06-2022 [employer] Phone: LIVERon 08-04-2022 Liver shows increase d echogenicity suggesting hepatic steatosis without focal lesion. With otherwise unremarkable exam [facility] EXAMINATION: RIGHT UPPER QUADRANT ULTRASOUND 08/04/2022 [...] No evidence of right upper quadrant ascites. [facility] Ruddy Mallory DO - 08/04/2022 EXAMINATION: [...] without focal lesion. With otherwise unremarkable exam [facility] [employer] Work Phone: Radiology Study observation (narrative) [facility] [employer] Work Phone: US LIVEROrdered By: Ruddy choi on 08-04-2022 [facility] [employer] Work Phone: Ceruloplasminon 07-20-2022 Ceruloplasmin 22 mg/dL 16 - 45 mg/dL [facility] Hepatitis B Surface Antibody on 07-20-2022 HBV surface Ab (S) [Titer] <3.50 NINF [facility] Comment on above: REFERENCE RANGE: <10.0 NON-REACTIVE/NOT IMMUNE >=10.0 REACTIVE/IMMUNE [facility] CBC with Auto Differentialon 07-19-2022 Absolute Eos # 0.32 [place] [facility] Absolute Immature Granulocyte 0.07 [facility] Absolute Lymph # 3.05 [facility] Absolute [place] # 0.53 [facility] Basophils (Bld) [#/Vol] 0.06 10*3/uL [facility] Basophils/100 WBC (Bld) 1 % 0 - 2 % [facility] Eosinophils/100 WBC (Bld) 4 % 1 - 4 % [facility] Hematocrit (Bld) [Volume fraction] 38.1 % 36.3 - 47.1 % [facility] Hemoglobin (Bld) [Mass/Vol] 11.9 g/dL 11.9 - 15.1 g/dL [facility] Immature granulocytes/100 WBC (Bld) 1 % High 0 [facility] Interpretation and review of laboratory results Abnormal [facility] Lymphocytes/100 WBC (Bld) 40 % 24 - 43 % [facility] MCH (RBC) [Entitic mass] 31.1 pg 25.2 - 33.5 pg [facility] MCHC (RBC) [Mass/Vol] 31.2 g/dL 28.4 - 34.8 g/dL [facility] MCV (RBC) [Entitic vol] 99.5 fL 82.6 - 102.9 fL [facility] Monocytes/100 WBC (Bld) 7 % 3 - 12 % [facility] NRBC Automated 0.0 0.0 per 100 WBC [facility] Platelet distribution width (Bld) [Ratio] 13.7 % 11.8 - 14.4 % [facility] Platelet mean volume (Bld) [Entitic vol] 8.9 fL 8.1 - 13.5 fL [facility] Platelets (Bld) [#/Vol] 357 10*3/uL [facility] RBC (Bld) [#/Vol] 3.83 10*6/uL Low 3.95 - 5.1 1 m/uL [facility] Segmented neutrophils/100 WBC (Bld) 47 % 36 - 65 % [facility] Segs Absolute 3.61 [facility] WBC (Bld) [#/Vol] 7.6 10*3/uL [facility] Comprehensive Metabolic Pane l with Bilirubinon 07-19-2022 Albumin [Mass/Vol] 4.6 g/dL 3.5 - 5.2 g/dL [facility] Albumin/Globulin [Mass ratio] 1.8 {ratio} 1.0 - 2.5 [facility] ALP (Bld) [Catalytic activity/Vol] 53 U/L 35 - 104 U/L [facility] ALT [Catalytic activity/Vol] 36 U/L High 5 - 33 U/L [facility] Anion gap [Moles/Vol] 13 mmol/L 9 - 17 mmol/L [facility] AST [Catalytic activity/Vol] 37 U/L High NINF - 32 U/L [facility] Bilirubin [Mass/Vol] 0.2 mg/dL Low 0.3 - 1 .2 mg/dL [facility] Bilirubin, Indirect Can not be calculated 0.00 - 1.00 mg/dL [facility] Bilirubin.indirect [Mass/Vol] mg/dL NINF - 0.31 mg/dL [facility] [facility] Calcium [Mass/Vol] 9.2 mg/dL 8.6 - 10. 4 mg/dL [facility] Chloride [Moles/Vol] 102 mmol/L 98 - 10 7 mmol/L [facility] CO2 [Moles/Vol] 24 mmol/L 20 - 31 mmol/L [facility] Creatinine [Mass/Vol] 0.88 mg/dL 0.50 - 0.90 mg/dL [facility] GFR/1.73 sq M.predicted MDRD (S/P/Bld) [Vol rate/Area] - PINF [facility] Comment on above: Effective Jun 28, 2022 [...] 116 mg/dL High 70 - 99 mg/dL [facility] Interpretation and review of laboratory results Abnormal [facility] Potassium [Moles/Vol] 4.9 mmol/L 3.7 - 5.3 mmol/L [facility] Protein [Mass/Vol] 7.2 g/dL 6.4 - 8.3 g/dL [facility] Sodium [Moles/Vol] 139 mmol/L 135 - 144 mmol/L [facility] Urea nitrogen (BldV) [Mass/Vol] 28 mg/dL High 6 - 20 mg/dL [facility] POINT OF CARE GLUCOSEon 03-26 Glucose [Mass/Vol] 106 mg/dL Normal 74-106 [facility] Comment on above: Performed By: #### P OCGLUC #### [facility] [address] [address] [address] Chidi Reyes VL LOWER EXTREMITY ARTERIAL SEGMENTAL PRESSURES W PPGon 04-01-2022 Ruddy Mallory DO - 04/01/2022 [facility] Vascular Lower Arterial Plethysmography Procedure Patient Name TIMMY Date of Study 03/31/2022 RISA Cooper Date of 1975 Gender Female Age 47 year(s) Race Room Number Corporate ID [id number] # Patient Acct [id number] # MR # [id number] Debone Supervisor Vicki Spicer RVT Interpreting Physician Ruddy Mallory [...] ! +---------++--------+-- ---+ ++-- ------+-----+ ------ + Convo Phone: VL LOWER EXTREMITY ARTERIAL SEGMENTAL PRESSURES W PPGOrdered By: Ruddy Mallory on 04-01-2022 [employer] Phone: VL LOWER EXTREMITY ARTERIAL SEGMENTAL PRESSURES W PPGon 03-31-2022 Radiology Study observation (narrative) [employer]vo Phone: Creatine Kinaseon 03-02-2022 CK [Catalytic activity/Vol] 274 U/L High 22-269 [facility] Comment on above: Result Comment: PERF ORMED BY: [place] [address] PATHOLOGIST HEALTH INFORMATION MANAGER GRZEGORZ DUMONT M.D. Performed By: #### C K #### [facility] [address] [place] [address] #### SJOGRENS #### [facility] , Sjogrens Anti-SSA/SSBon SS-A/Ro Sjogrens Antibody <0.2 Normal 0.0-0.9 [facility] Comment on above: Performed By: #### C K #### [address] #### SJOGRENS #### [facility] , SS-B/La Sjogrens Antibody <0.2 Normal 0.0-0.9 [facility] Comment on above: Result Comment: Perf ormed at: - [facility] [address] [id number] Kiln Loader: Chandana Oliveros PhD, Phone: [phone] PERFORMED BY: [place] [address] PATHOLOGIST HEALTH INFORMATION MANAGER GRZEGORZ DUMONT M.D. Performed By: #### C K #### [place] [address] [facility] #### SJOGRENS #### [facility] , XR hand BI 2Von 03-02-2022 XR hand BI 2V [facility] [address] [place] [address] [id number] XRay Report Signed Patient: Risa Warner MR#: [id number] 52 : 1975 Acct:[id number] Age/Sex: 47 / F ADM Date: 03/02/22 Loc: ICXD Room: Type: [facility] Attending Dr: Sam Hidalgo MD Ordering Provider: Sam Hidalgo MD Date of Service: 03/02/22 XR/XR hand BI 2V: pain Copies to: Sam Hidalgo MD 2 viewsboth handsplain film COMPARISON:None HISTORY:Multiple regions of joint pain in the hands. No bony erosion. There are mild interphalangeal degenerative changes. No bony lesion. No fracture or dislocation. No soft tissue calcification. 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 Impression dictated by: Edwin White M.D.03/02/2022 4:09 PM Dictation Location: [place] [address] Transcribed By: [facility] 03/02/22 1609 Dictated By: Edwin White DO 03/02/22 1608 Signed By: 03/02/22 1609 [facility] MARISOL DIGITAL SCREEN BILA TERALOrdered By: Vivian Oseguera on 05-15-2021 No mammographic evidence of malignancy. BI-RADS 1 BIRADS: BIRADS - CATEGORY 1 Negative, no evidence of malignancy. Normal interval follow-up is recommended in 12 months. OVERALL ASSESSMENT - NEGATIVE A letter of notification will be sent to the patient regarding the results. The [employer] recommends annual mammograms for women 40 years and older. GELI Phone: EXAMINATION: SCREENI NG DIGITAL BILATERAL MAMMOGRAM WITH TOMOSYNTHESIS, 05/15/2021 TECHNIQUE: Screening mammography was performed with tomosynthesis including MLO and CC views of the bilateral breasts. Computer aided detection was used for the interpretation of this exam. COMPARISON: 03/12/2016 HISTORY: Screening. FINDINGS: The breast tissue is composed of scattered fibroglandular tissue. There is no suspicious mass, suspicious microcalcification, or area of architectural distortion. [employer] Work Phone: GELI Phone: US FIBROSCANon 04-14-2021 US FIBROSCAN Velocity Controlled Transient Elastography (Fibroscan) Furs Salesperson: Ameena Crisostomo Attending: Leah Martins MD ? [...] S2-3. Clinical correlation indicated Leah Martins MD [facility] Interpreted by: Leah Martins MD Signed by: Leah Martins MD 04/14/21 Final result Normal [facility] FerritinOrdered By: Claudia Willett on 03-12-2021 Ferritin 199 ug/L High 13 - 150 ug/L [employer] Work Phone: Iron and TIBCOrdered By: Carmen Willett on 03-12-2021 Iron [Mass/Vol] 71 ug/dL 37 - 145 ug/dL [employer] Work Phone: Iron Saturation 17 % Low 20 - 55 % [facility] Work Phone: TIBC 412 ug/dL 250 - 450 ug/dL [employer] Work Phone: UIBC 341 ug/dL 112 - 347 ug/dL [employer] Work Phone: No Panel InformationOrdered By: Claudia Willett on 03-12-2021 Interpretation and review of laboratory results Abnormal GELI Phone: GELI Phone: CBCOrdered By: Claudia Willett on 03-11-2021 Hematocrit (Bld) [Volume fraction] 45.2 % 36.3 - 47.1 % [facility]ELI Phone: Hemoglobin.gastrointes tinal spec 1 Ql (Stl) 14.1 g/dL 11.9 - 15.1 g/dL [facility] Phone: MCH (RBC) [Entitic mass] 30.2 pg 25.2 - 33.5 pg [employer] Phone: MCHC (RBC) [Mass/Vol] 31.2 g/dL 28.4 - 34.8 g/dL [facility] Phone: MCV (RBC) [Entitic vol] 96.8 fL 82.6 - 102.9 fL [employer] Phone: NRBC Automated 0.0 0.0 per 100 WBC [employer] Phone: Platelet distribution width (Bld) [Ratio] 12.5 % 11.8 - 14.4 % G[employer] Phone: Platelet mean volume (Bld) [Entitic vol] 9.0 fL 8.1 - 13.5 fL [employer] Phone: Platelets (Bld) [#/Vol] 372 10*3/uL [employer] Phone: RBC (Bld) [#/Vol] 4.67 10*6/uL 3.95 - 5.1 1 m/uL [facility] Phone: WBC (Bld) [#/Vol] 7.5 10*3/uL GELI Phone: GELI Phone: Comprehensive Metabolic Pane lOrdered By: Claudia Willett on 03-11-2021 Albumin [Mass/Vol] 4.6 g/dL 3.5 - 5.2 g/dL [facility] Phone: Albumin/Globulin [Mass ratio] 1.8 {ratio} GELI Phone: ALP (Bld) [Catalytic activity/Vol] 88 U/L 35 - 104 U/L [facility] Phone: ALT [Catalytic activity/Vol] 52 U/L High 5 - 33 U/L [facility] Phone: Anion gap [Moles/Vol] 12 mmol/L 9 - 17 mmol/L [facility] Phone: AST [Catalytic activity/Vol] 45 U/L High <32 [facility] Phone: Bilirubin [Mass/Vol] 0.32 mg/dL 0.3 - 1 .2 mg/dL [facility] Phone: Calcium [Mass/Vol] 9.8 mg/dL 8.6 - 10. 4 mg/dL [facility] Phone: Chloride [Moles/Vol] 102 mmol/L 98 - 10 7 mmol/L [facility] Phone: CO2 [Moles/Vol] 25 mmol/L 20 - 31 mmol/L [facility] Phone: Creatinine [Mass/Vol] 0.68 mg/dL 0.50 - 0.90 mg/dL [facility] Phone: Free PSA/Total PSA [Mass fraction] 7.2 g/dL 6.4 - 8.3 g/dL [facility] Phone: GFR >60 >60 mL/min [employer] Phone: GFR Non- >60 >60 mL/min G[facility] Phone: Glucose [Mass/Vol] 231 mg/dL High 70 - 99 mg/dL [facility] Phone: Interpretation and review of laboratory results Abnormal [facility] [employer] Phone: Potassium [Moles/Vol] 4.7 mmol/L 3.7 - 5.3 mmol/L [facility] [employer] Phone: Sodium [Moles/Vol] 139 mmol/L 135 - 144 mmol/L [facility] Phone: Urea nitrogen (BldV) [Mass/Vol] 24 mg/dL High 6 - 20 mg/dL [facility] [employer] Phone: Urea nitrogen/Creatinine (Bld) [Mass ratio] 35 High [facility] [employer] Phone: [facility] Phone: Hepatitis B Core Antibody, T otalOrdered By: Claudia Willett on 03-11-2021 Hep B Core Total Ab Non-Reactive NONREACTIVE [facility] [employer] Work Phone: Hepatitis B Surface AntigenO rdered By: Claudia Willett on 03-11-2021 Hepatitis B Surface Ag Non-Reactive NONREACTIVE [facility] [employer] Work Phone: Hepatitis C AntibodyOrdered By: Claudia Willett on 03-11-2021 Hepatitis C Ab Non-Reactive NONREACTIVE [facility] Work Phone: Comment on above: The [...] GFR/1.73 sq M.predicted MDRD (S/P/Bld) [Vol rate/Area] [facility] Phone: Comment on above: Average GFR for 40-4 9 years old: 99 mL/min/1.73sq m Chronic Kidney Disease: <60 mL/min/1.73sq m Kidney failure: <15 mL/min/1.73sq m eGFR calculated using average adult body mass. Additional eGFR calculator available at: http://www.[employer]/multiple_crcl_2012.htm Stage 1: Some kidney damage normal GFR Stage 2: Mild kidney damage GFR 60-89 Stage 3: Moderate kidney damage GFR 30-59 Stage 4: Severe kidney damage GFR 15-29 Stage 5: Severe kidney damage GFR <15 ESRD - chronic treatment by dialysis or transplant No Panel InformationOrdered By: Claudia Willett on 03-11-2021 [employer]EL[employer] Phone: Hepatic Function PanelOrdere d By: Vivian Oseguera on 02-09-2021 Albumin [Mass/Vol] 4.3 g/dL 3.5 - 5.2 g/dL [employer] Phone: Albumin/Globulin [Mass ratio] 1.3 {ratio} [facility] Phone: ALP (Bld) [Catalytic activity/Vol] 102 U/L 35 - 104 U/L [employer] Phone: ALT [Catalytic activity/Vol] 34 U/L High 5 - 33 U/L [employer] Phone: AST [Catalytic activity/Vol] 24 U/L <32 [employer] Phone: Bilirubin [Mass/Vol] 0.24 mg/dL Low 0.3 - 1 .2 mg/dL [employer] Phone: Bilirubin, Indirect CANNOT BE CALCULATED 0.00 - 1.00 mg/dL [employer] Phone: Bilirubin.indirect [Mass/Vol] mg/dL <0.31 mg/dL [facility] Phone: Free PSA/Total PSA [Mass fraction] 7.5 g/dL 6.4 - 8.3 g/dL [employer] Work Phone: Globulin NOT REPORTED 1.5 - 3.8 g/dL [facility] [employer] Work Phone: Interpretation and review of laboratory results Abnormal [facility] Work Phone: [facility] Work Phone: Urinalysis with MicroscopicO rdered By: Meghan León on 01-28-2021 - [facility] Work Phone: Amorphous, UA NOT REPORTED None [facility] Work Phone: Bacteria, UA 2+ Abnormal None [facility] [employer] Work Phone: Bilirubin Urine Negative NEGATIVE [facility] Work Phone: Casts UA NOT REPORTED /LPF [facility] [employer] Work Phone: Color, UA YELLOW YELLOW [facility] [employer] Work Phone: Crystals, UA NOT REPORTED None /HPF [facility] Work Phone: Epithelial Cells UA 2 TO 5 [facility] [employer] Work Phone: Glucose, Ur 1+ Abnormal NEGATIVE [facility] [employer] Work Phone: Interpretation and review of laboratory results Abnormal [facility] Work Phone: Ketones Ql (U) Negative NEGATIVE [facility] Work Phone: Leukocyte esterase Test strip Ql (U) Negative NEGATIVE [facility] [employer] Work Phone: Mucus, UA NOT REPORTED None [facility] [employer] Work Phone: Nitrite, Urine Negative NEGATIVE [facility] [employer] Work Phone: Other Observations UA NOT REPORTED NOT REQ. M [facility] [employer] Work Phone: pH, UA 6.0 [facility] [employer] Work Phone: Protein, UA Negative NEGATIVE [facility] [employer] Work Phone: RBC, UA 0 TO 2 [employer] Work Phone: Renal Epithelial, UA NOT REPORTED 0 /HPF [facility] [employer] Work Phone: Specific [place], UA >1.030 High [facility] [employer] Phone: Trichomonas, UA NOT REPORTED None [facility] Work Phone: Turbidity UA CLEAR CLEAR [facility] Work Phone: Urinalysis Comments NOT REPORTED [facility] [employer] Work Phone: Urine Hgb Negative NEGATIVE [facility] Phone: Urobilinogen, Urine Normal Normal [facility] Phone: WBC, UA 0 TO 2 [facility] Phone: Yeast, UA NOT REPORTED None [facility] Phone: XR ABDOMEN (KUB) (SINGLE AP VIEW)Ordered By: Meghan León on 01-27-2021 Suggestion of a very small calcification over the lower pole of the left kidney. Probable hepatomegaly. No evidence of obstructive bowel process. [employer] Phone: EXAMINATION: ONE SUP INE XRAY VIEW(S) [...] battery pack over the left iliac wing. [employer] Phone: Vitaly, [employer] Incoming Radiant Results From Mophie/Ref[employer] It - 01/27/2021 1:29 PM EDT EXAMINATION: ONE [...] hepatomegaly. No evidence of obstructive bowel process. [facility] Phone: CT LUMBAR SPINE W CONTRASTOr dered By: Corey Cleveland on 01-20-2021 Shallow disc bulges at L4-5 and L5-S1. No significant focal disc protrusion or stenosis is appreciated. Spinal stimulator device. [facility]ELI Phone: EXAMINATION: CT OF T HE LUMBAR [...] No significant focal disc protrusion is detected. [facility]I Phone: Vitaly, [employer] Incoming Radiant Results From GoPlaceIte/Pacs - 01/20/2021 3:43 PM EDT EXAMINATION: CT [...] or stenosis is appreciated. Spinal stimulator device. [employer] Phone: Lipid Panelon 08-13-2020 Cholesterol [Mass/Vol] 127 mg/dL <200 [facility] [place] [place] Comment on above: Cholesterol Guidelines: <200 Desirable 200-240 Borderline >240 Undesirable Cholesterol in HDL [Mass/Vol] 28 mg/dL Low >40 [place], [place] Comment on above: HDL Guidelines: <40 Undesirable 40-59 Borderline >59 Desirable Cholesterol in LDL [Mass/Vol] 31 mg/dL 0 - 130 mg/dL [place] Comment on above: LDL Guidelines: <100 Desirable 100-129 Near to/above Desirable 130-159 Borderline >159 Undesirable Direct (measured) LDL and calculated LDL are not interchangeable tests. Cholesterol in VLDL [Mass/Vol] NOT REPORTED High 1 - 30 mg/dL [place] Cholesterol.total/Chol esterol in HDL [Mass ratio] 4.5 {ratio} <5 [place] Interpretation and review of laboratory results Abnormal [place] Triglyceride [Mass/Vol] 340 mg/dL High <150 [place] Comment on above: Triglyceride Guidelines: <150 Desirable 150-199 Borderline 200-499 High >499 Very high Based on AHA Guidelines for fasting triglyceride, June 2012. CT HEAD WO CONTRASTon 2019 No acute intracrania l abnormality. [place] EXAMINATION: CT OF T HE HEAD [...] of the visualized skull or soft tissues. [place] Vitaly, [employer] Incoming Radiant Results From Mophie/Polatiss - 07/25/2020 12:02 PM EDT EXAMINATION: CT [...] soft tissues. IMPRESSION: No acute intracranial abnormality. [place] XR ABDOMEN (KUB) (SINGLE AP VIEW)on 01-25-2020 1. No renal or urete ral calculi identified. 2. Mild constipation. [place] EXAMINATION: ONE SUP INE XRAY VIEW(S) [...] colon and rectum. No acute osseous abnormality. [place] Vitaly, [employer] Incoming Radiant Results From Mophie/[employer] It - 01/25/2020 10:09 PM EDT EXAMINATION: ONE [...] or ureteral calculi identified. 2. Mild constipation. [place] C-Reactive Proteinon 020 CRP [Mass/Vol] 2.8 mg/L 0 - 5 mg/L [place] CKon 12-28-2019 Total CK 107 U/L 26 - 192 U/L [place] Hemoglobin A1Con 12-28-2019 Glucose [Mass/Vol] 263 mg/dL [place] Comment on above: The ADA and AACC rec ommend providing the estimated average glucose result to permit better patient understanding of their HBA1c result. HbA1c (Bld) [Mass fraction] 10.8 % High 4.8 - 5.9 % [place] Interpretation and review of laboratory results Abnormal [place] IgAon 12-28-2019 IgA [Mass/Vol] 225 mg/dL 70 - 400 mg/dL [place] IgGon 12-28-2019 IgG [Mass/Vol] 768 mg/dL 700 - 1600 mg/dL [place] IgMon 12-28-2019 IgM [Mass/Vol] 97 mg/dL 40 - 230 mg/dL [place] Lactate Dehydrogenaseon 04- LD 151 U/L 135 - 214 U/L [place] Sedimentation Rateon 020 Sed Rate 14 mm 0 - 20 mm [place] T4on 12-28-2019 T4, Total 6.7 ug/dL 4.5 - 12 ug/dL [place] T4, Freeon 12-28-2019 Thyroxine, Free 1.02 ng/dL 0.93 - 1.7 ng/dL [place] TSH without Reflexon 020 TSH Qn 0.70 m[IU]/L [place] ALTOrdered By: Flip izquierdo 10-18-2019 ALT [Catalytic activity/Vol] 26 U/L 5 - 33 U/L [facility] Work Phone: ASTOrdered By: Flip izquierdo 10-18-2019 AST [Catalytic activity/Vol] 20 U/L <32 [facility] [employer] Work Phone: AmylaseOrdered By: Flip vernon on 10-18-2019 Amylase [Catalytic activity/Vol] 45 U/L 28 - 100 U/L [facility] [place] [employer] Phone: Basic Metabolic PanelOrdered By: Flip Dodson on 10-18-2019 Anion gap [Moles/Vol] 17 mmol/L 9 - 17 mmol/L [facility] Phone: Bun/Cre Ratio 25 High [employer] Work Phone: Calcium [Mass/Vol] 9.6 mg/dL 8.6 - 10. 4 mg/dL [facility] Phone: Chloride [Moles/Vol] 96 mmol/L Low 98 - 10 7 mmol/L [employer] Phone: CO2 [Moles/Vol] 22 mmol/L 20 - 31 mmol/L [employer] Phone: Creatinine [Mass/Vol] 0.63 mg/dL 0.5 - 0.9 mg/dL [employer] Phone: GFR >60 >60 mL/min [employer] Phone: GFR Comment GELI Phone: Comment on above: Average GFR for 40-4 9 years old: 99 mL/min/1.73sq m Chronic Kidney Disease: <60 mL/min/1.73sq m Kidney failure: <15 mL/min/1.73sq m eGFR calculated using average adult body mass. Additional eGFR calculator available at: http://www.[employer]/multiple_crcl_2012.htm GFR Non- >60 >60 mL/min [facility] Phone: GFR Staging [facility] Phone: Comment on above: Stage 1: Some kidney damage normal GFR Stage 2: Mild kidney damage GFR 60-89 Stage 3: Moderate kidney damage GFR 30-59 Stage 4: Severe kidney damage GFR 15-29 Stage 5: Severe kidney damage GFR <15 ESRD - chronic treatment by dialysis or transplant Glucose [Mass/Vol] 389 mg/dL High 70 - 99 mg/dL [employer] Phone: Interpretation and review of laboratory results Abnormal [facility] Phone: Potassium [Moles/Vol] 4.4 mmol/L 3.7 - 5.3 mmol/L [employer] Work Phone: Sodium [Moles/Vol] 135 mmol/L 135 - 144 mmol/L [employer] Work Phone: Urea nitrogen [Mass/Vol] 16 mg/dL 6 - 20 mg/dL [employer] Work Phone: CBC Auto DifferentialOrdered By: Flip Dodson on 10-18-2019 Absolute Eos # 0.24 [facility] Work Phone: Absolute Immature Granulocyte 0.10 [employer] Work Phone: Absolute Lymph # 3.09 [facility] Work Phone: Absolute [place] # 0.50 [facility] Work Phone: Basophils (Bld) [#/Vol] 0.09 10*3/uL [employer] Work Phone: Basophils/100 WBC (Bld) 1 % 0 - 2 % [employer] Work Phone: Differential Type NOT REPORTED [facility] Phone: Eosinophils/100 WBC (Bld) 3 % 1 - 4 % [employer] Work Phone: Erythrocyte distribution width (RBC) [Ratio] 11.7 % Low 11.8 - 14.4 % [employer] Work Phone: Hematocrit (Bld) [Volume fraction] 45.7 % 36.3 - 47.1 % [employer] Work Phone: Hemoglobin (Bld) [Mass/Vol] 14.4 g/dL 11.9 - 15.1 g/dL [employer] Work Phone: Immature granulocytes/100 WBC (Bld) 1 % High 0 [employer] Work Phone: Interpretation and review of laboratory results Abnormal [employer] Work Phone: Lymphocytes/100 WBC (Bld) 39 % 24 - 43 % [employer] Phone: MCH (RBC) [Entitic mass] 30.4 pg 25.2 - 33.5 pg [employer] Phone: MCHC (RBC) [Mass/Vol] 31.5 g/dL 28.4 - 34.8 g/dL [employer] Phone: MCV (RBC) [Entitic vol] 96.4 fL 82.6 - 102.9 fL [employer] Work Phone: Monocytes/100 WBC (Bld) 6 % 3 - 12 % [employer] Phone: NRBC Automated 0.0 0.0 per 100 WBC [employer] Phone: Platelet Estimate NOT REPORTED [employer] Phone: Platelet mean volume (Bld) [Entitic vol] 9.1 fL 8.1 - 13.5 fL [employer] Work Phone: Platelets (Bld) [#/Vol] 388 10*3/uL [employer] Phone: RBC (Bld) [#/Vol] 4.74 10*6/uL 3.95 - 5.1 1 m/uL [employer] Phone: RBC morphology finding Nom (Bld) NOT REPORTED [employer] Work Phone: Segmented neutrophils/100 WBC (Bld) 50 % 36 - 65 % [employer] Work Phone: Segs Absolute 4.00 [employer] Work Phone: WBC (Bld) [#/Vol] 8.0 10*3/uL [employer] Phone: WBC Morphology NOT REPORTED [employer] [facility] Work Phone: LipaseOrdered By: Flip bautista on 10-18-2019 Lipase [Catalytic activity/Vol] 35 U/L 13 - 60 U/L [employer] Phone: US GALLBLADDER RUQOrdered By : Flip Dodson on 10-18-2019 No acute abnormality . Fatty liver. [employer] Phone: EXAMINATION: RIGHT UPPER QUADRANT ULTRASOUND 10/18/2019 [...] No evidence of right upper quadrant ascites. [employer] Phone: Vitaly, [facility] Incoming Radiant Results From [employer] - 10/18/2019 2:07 PM EST EXAMINATION: RIGHT [...] ascites. IMPRESSION: No acute abnormality. Fatty liver. [employer] Phone: EKG 12 LeadOrdered By: Corey Cleveland on 10-03-2019 Atrial Rate 91 BPM [employer] Phone: P [place] 64 degrees [employer] Phone: P-R Interval 164 ms [employer] Phone: Q-T Interval 388 ms [employer] Phone: QRS Duration 90 ms [employer] Phone: QTc Calculation (Bazett) 477 ms [employer] Phone: R [place] 15 degrees [employer] Phone: T [place] 58 degrees [employer] Phone: Ventricular Rate 91 BPM [employer] Work Phone: Normal sinus rhythm Normal ECG When compared with ECG of 26-MAR-2019 16:56, No significant change was found Confirmed by SHARON VARGAS ([id number]) on 10/03/2019 10:54:07 PM [facility]ELI Phone: Vitaly, [employer] Incoming E kg Results From [employer] [place] - 10/03/2019 10:54 PM EST Normal sinus rhythm Normal ECG When compared with ECG of 26-MAR-2019 16:56, No significant change was found Confirmed by SHARON VARGAS ([id number]) on 10/03/2019 10:54:07 PM GELI Phone: Otheron 08-24-2019 Findings suggest gastroparesis for solid materials. [facility] [place] EXAMINATION: NUCLEAR MEDICINE GASTRIC EMPTYING STUDY 08/22/2019 [...] retention, hiatal hernia or reflux was observed. [place] Vitaly, [employer] Incoming Radiant Results From Mophie/Pacs - 08/24/2019 10:08 AM EST EXAMINATION: NUCLEAR [...] IMPRESSION: Findings suggest gastroparesis for solid materials. [place] US HEAD NECK SOFT TISSUE THY [...] more than four nodules should be followed. [place] EXAMINATION: THYROID ULTRASOUND 08/03/2019 COMPARISON: None [...] (2) 2. Echogenicity: Hypoechoic (2) 3. Shape: [id number] (0) 4. Margins: Smooth (0) 5. Echogenic foci: None (0) ACR TI-RADS total points: 4 ACR TI-RADS risk category: TR4 Prior biopsy: Unknown. Cervical lymphadenopathy: No abnormal lymph nodes in the imaged portions of the neck. [facility] [place], [place] Vitaly, pn Incoming Radiant Results From [facility] [employer] [facility] - 08/03/2019 3:19 PM EST EXAMINATION: THYROID [...] (2) 2. Echogenicity: Hypoechoic (2) 3. Shape: [id number] (0) 4. Margins: Smooth (0) 5. Echogenic [...] more than four nodules should be followed. [place] CT ABDOMEN PELVIS W IV CONTR AST Additional Contrast? Oralon 07-30-2019 1. No acute inflammatory process identified. 2. Bilateral punctate nephrolithiasis. 3. Hepatomegaly with steatosis. [place] EXAMINATION: CT OF T HE ABDOMEN [...] thoracic neurostimulator. No acute osseous abnormality identified. [place] Vitaly, [employer] Incoming Radiant Results From Mophie/Ref[employer] It - 07/30/2019 3:42 PM EST EXAMINATION: CT [...] Bilateral punctate nephrolithiasis. 3. Hepatomegaly with steatosis. [place] CBC Auto Differentialon 06-27 Basophils (Bld) [#/Vol] 0.06 10*3/uL [place] Basophils/100 WBC (Bld) 1 % 0 - 2 % [place] Differential Type NOT REPORTED [place] Eosinophils (Bld) [#/Vol] 0.33 10*3/uL [place] Eosinophils/100 WBC (Bld) 4 % 1 - 4 % [place] Erythrocyte distribution width (RBC) [Ratio] 12.1 % 11.8 - 14.4 % [place] Hematocrit (Bld) [Volume fraction] 45.8 % 36.3 - 47.1 % [place] Hemoglobin (Bld) [Mass/Vol] 14.6 g/dL 11.9 - 15.1 g/dL [place] Immature granulocytes (Bld) [#/Vol] 0.12 10*3/uL [place] Immature granulocytes (Bld) [#/Vol] 1 % High 0 [place] Interpretation and review of laboratory results Abnormal [place] Lymphocytes (Bld) [#/Vol] 3.67 10*3/uL [place] Lymphocytes/100 WBC (Bld) 42 % 24 - 43 % [place] MCH (RBC) [Entitic mass] 30.3 pg 25.2 - 33.5 pg [place] MCHC (RBC) [Mass/Vol] 31.9 g/dL 28.4 - 34.8 g/dL [place] MCV (RBC) [Entitic vol] 95.0 fL 82.6 - 102.9 fL [place] Monocytes (Bld) [#/Vol] 0.66 10*3/uL [place] Monocytes/100 WBC (Bld) 8 % 3 - 12 % [place] Platelet mean volume (Bld) [Entitic vol] 9.1 fL 8.1 - 13.5 fL [place] Platelets (Bld) [#/Vol] NOT REPORTED [place] Platelets (Bld) [#/Vol] 406 10*3/uL [place] RBC (Bld) [#/Vol] 4.82 10*6/uL 3.95 - 5.1 1 m/uL [place] RBC morphology finding Nom (Bld) NOT REPORTED [place] Segmented neutrophils/100 WBC (Bld) 44 % 36 - 65 % [place] Segs Absolute 3.94 [place] WBC (Bld) [#/Vol] 8.8 10*3/uL [place] WBC (Bld) [#/Vol] 0.0 10*3/uL 0.0 per 10 0 WBC [place] WBC Morphology NOT REPORTED [place] Comprehensive Metabolic Pane yamilet 07-20-2019 Albumin [Mass/Vol] 4.3 g/dL 3.5 - 5.2 g/dL [place] Albumin/Globulin [Mass ratio] 1.2 {ratio} [place] ALP [Catalytic activity/Vol] 85 U/L 35 - 104 U/L [place] ALT [Catalytic activity/Vol] 30 U/L 5 - 33 U/L [place] Anion gap [Moles/Vol] 14 mmol/L 9 - 17 mmol/L [place] AST [Catalytic activity/Vol] 23 U/L <32 [place] Bilirubin Ql (U) 0.21 mg/dL Low 0.3 - 1.2 mg/dL [place] Bun/Cre Ratio 25 High [place] Calcium [Mass/Vol] 9.9 mg/dL 8.6 - 10. 4 mg/dL [place] Chloride [Moles/Vol] 98 mmol/L 98 - 10 7 mmol/L [place] CO2 [Moles/Vol] 24 mmol/L 20 - 31 mmol/L [place] Creatinine [Mass/Vol] 0.63 mg/dL 0.5 - 0.9 mg/dL [place] GFR >60 >60 mL/min [place] GFR Non- >60 >60 mL/min [place] Glucose [Mass/Vol] 328 mg/dL High 70 - 99 mg/dL [place] Interpretation and review of laboratory results Abnormal [place] Potassium [Moles/Vol] 4.9 mmol/L 3.7 - 5.3 mmol/L [place] Protein [Mass/Vol] 7.8 g/dL 6.4 - 8.3 g/dL [place] Sodium [Moles/Vol] 136 mmol/L 135 - 144 mmol/L [place] Urea nitrogen [Mass/Vol] 16 mg/dL 6 - 20 mg/dL [place] Hemoglobin A1Con 07-20-2019 Glucose [Mass/Vol] 260 mg/dL [place] Comment on above: The ADA and AACC rec ommend providing the estimated average glucose result to permit better patient understanding of their HBA1c result. HbA1c (Bld) [Mass fraction] 10.7 % High 4.8 - 5.9 % [place] Interpretation and review of laboratory results Abnormal [place] Lipaseon 07-20-2019 Lipase [Catalytic activity/Vol] 36 U/L 13 - 60 U/L [place] Metabolic Panelon 07-20-2019 GFR/1.73 sq M predicted among non-blacks MDRD (S/P/Bld) [Vol rate/Area] [place] Comment on above: Stage 1: Some [...] body mass. Additional eGFR calculator available at: http://www.[employer]/multiple_crcl_2012.htm Glucose, Fastingon 9 Glucose [Mass/Vol] 152 mg/dL High 70 - 99 mg/dL [place] Interpretation and review of laboratory results Abnormal [place] Basic Metabolic Panelon Anion gap [Moles/Vol] 17 mmol/L 9 - 17 mmol/L [place] Bun/Cre Ratio 18 [place] Calcium [Mass/Vol] 9.7 mg/dL 8.6 - 10. 4 mg/dL [place] Chloride [Moles/Vol] 96 mmol/L Low 98 - 10 7 mmol/L [place] CO2 [Moles/Vol] 22 mmol/L 20 - 31 mmol/L [place] Creatinine [Mass/Vol] 0.65 mg/dL 0.5 - 0.9 mg/dL [place] GFR >60 >60 mL/min [place] GFR Non- >60 >60 mL/min [place] Glucose [Mass/Vol] 310 mg/dL High 70 - 99 mg/dL [place] Interpretation and review of laboratory results Abnormal [place] Potassium [Moles/Vol] 4.4 mmol/L 3.7 - 5.3 mmol/L [place] Sodium [Moles/Vol] 135 mmol/L 135 - 144 mmol/L [place] Urea nitrogen [Mass/Vol] 12 mg/dL 6 - 20 mg/dL [place] Hemoglobin A1Con 06-04-2019 Glucose [Mass/Vol] 263 mg/dL [place] Comment on above: The ADA and AACC rec ommend providing the estimated average glucose result to permit better patient understanding of their HBA1c result. HbA1c (Bld) [Mass fraction] 10.8 % High 4.8 - 5.9 % [place] Interpretation and review of laboratory results Abnormal [place] LDL Cholesterol, Directon Cholesterol in LDL [Mass/Vol] 64 mg/dL <100 [place] Comment on above: LDL Guidelines: <100 Desirable 100-129 Near to/above Desirable 130-159 Borderline >159 Undesirable Direct (measured) LDL and calculated LDL are not interchangeable tests. Lipid Panelon 06-04-2019 Cholesterol [Mass/Vol] 166 mg/dL <200 [place] Comment on above: Cholesterol Guidelines: <200 Desirable 200-240 Borderline >240 Undesirable Cholesterol in HDL [Mass/Vol] 28 mg/dL Low >40 [place] Comment on above: HDL Guidelines: <40 Undesirable 40-59 Borderline >59 Desirable Cholesterol in LDL [Mass/Vol] 0 - 130 mg/dL [place] Comment on above: Calculation not tracy d for Triglyceride value greater than 400 mg/dL. Direct LDL reflexed LDL Guidelines: <100 Desirable 100-129 Near to/above Desirable 130-159 Borderline >159 Undesirable Direct (measured) LDL and calculated LDL are not interchangeable tests. Cholesterol in VLDL [Mass/Vol] 1 - 30 mg/dL [place] Cholesterol.total/Chol esterol in HDL [Mass ratio] 5.9 {ratio} High <5 [place] Interpretation and review of laboratory results Abnormal [place] Triglyceride [Mass/Vol] 665 mg/dL High <150 [place] Comment on above: Triglyceride Guidelines: <150 Desirable 150-199 Borderline 200-499 High >499 Very high Based on AHA Guidelines for fasting triglyceride, June 2012. Metabolic Panelon 06-04-2019 GFR/1.73 sq M predicted among non-blacks MDRD (S/P/Bld) [Vol rate/Area] [place] Comment on above: Average GFR for 40-4 9 years old: 99 mL/min/1.73sq m Chronic Kidney Disease: <60 mL/min/1.73sq m Kidney failure: <15 mL/min/1.73sq m eGFR calculated using average adult body mass. Additional eGFR calculator available at: http://www.globalrph.[employer]/multiple_crcl_2012.htm Stage 1: Some kidney damage normal GFR [...] of the procedureincluding risks, benefits, and alternatives. [place] protocol wasobserved. While the patient was positioned [...] by:Jade Rodgers MD02/10/18Edited Result - FINAL Normal [facility] Progress Noteon 01-25-2018 HIM IP Note OR Application Systems Architect Normal [facility] Cult,Aerobe/Anaerobeon 12-27 Neutrophils Specimen Description .LESION PERIRECTALSpecial Requests NOT REPORTEDDirect Exam MANY NEUTROPHILS MIXED BACTERIAL MORPHOTYPES SEEN ON GRAM STAIN. Culture MICROMONAS MICROS LIGHT GROWTH PREVOTELLA SPECIES BETA LACTAMASE NEGATIVE SCANT GROWTH NO AEROBIC ORGANISMS ISOLATED Report Status FINAL 12/27/2017 Normal [facility] Comment on above: Performed By: #### A MY, CMPX, LIP, MG, VIDYA, CDP, GLYHGB ####[facility] [address] [place] [address] [id number] Basic Metabolic Profon 12-23 (cont.) Normal [facility] Comment on above: Result Comment: Aver age GFR for 40-49 years old: 99 mL/min/1.73sq mChronic Kidney Disease: <60 mL/min/1.73sq mKidney failure: <15 mL/min/1.73sq meGFR calculated using average adult body mass. Additional eGFR calculator available at:http://www.[employer].com/multiple_crcl_2012.htm[address] 2982608 ([phone] Performed By: #### A MY, CMPX, LIP, MG, VIDYA, CDP, GLYHGB ####[facility] [address] [place] [address], [place] [address] Anion gap 13 mmol/L Normal 9-17 [facility] Comment on above: Performed By: #### A MY, CMPX, LIP, MG, VIDYA, CDP, GLYHGB ####[address] [address] Calcium 9.6 mg/dL Normal 8.6-10.4 [facility] Comment on above: Performed By: #### A MY, CMPX, LIP, MG, VIDYA, CDP, GLYHGB ####[address] [address] Chloride 100 mmol/L Normal 98-107 [facility] Comment on above: Performed By: #### A MY, CMPX, LIP, MG, VIDYA, CDP, GLYHGB ####[address] [address] CO2 22 mmol/L Normal 20-31 [facility] Comment on above: Performed By: #### A MY, CMPX, LIP, MG, VIDYA, CDP, GLYHGB ####[address] [address] Creatinine 0.38 mg/dL Low 0.50-0.90 [facility] Comment on above: Performed By: #### A MY, CMPX, LIP, MG, VIDYA, CDP, GLYHGB ####[address] [address] eGFR (non-black) mL/min/{1.73_m2} Normal >60 [facility] Comment on above: Performed By: #### A MY, CMPX, LIP, MG, VIDYA, CDP, GLYHGB ####[address] [address] Glucose mass conc 270 mg/dL High 70-99 [facility] Comment on above: Performed By: #### A MY, CMPX, LIP, MG, VIDYA, CDP, GLYHGB ####[facility] [address] [place] [address] Potassium molar conc 3.9 mmol/L Normal 3.7-5.3 [facility] Comment on above: Performed By: #### A MY, CMPX, LIP, MG, VIDYA, CDP, GLYHGB ####[address] [address] Sodium 135 mmol/L Normal 135-144 [facility] Comment on above: Performed By: #### A MY, CMPX, LIP, MG, VIDYA, CDP, GLYHGB ####[address] [address] Urea nitrogen 3 mg/dL Low - [facility] Comment on above: Performed By: #### A MY, CMPX, LIP, MG, VIDYA, CDP, GLYHGB ####[address] [address] BUN/CRE Ratio NOT REPORTED Normal - [facility] Comment on above: Performed By: #### A MY, CMPX, LIP, MG, VIDYA, CDP, GLYHGB ####[address] [address] Staging: NOT REPORTED Normal [facility] Comment on above: Performed By: #### A MY, CMPX, LIP, MG, VIDYA, CDP, GLYHGB ####[address] [address] CBCon 12-23-2017 Erythrocyte distribution width Auto Ratio (RBC) 12.7 % Normal 11.8-14.4 [facility] Comment on above: Performed By: #### A MY, CMPX, LIP, MG, VIDYA, CDP, GLYHGB ####[address] [address] Erythrocytes (RBC) 4.12 10*6/uL Normal 3.95-5.11 [facility] Comment on above: Performed By: #### A MY, CMPX, LIP, MG, VIDYA, CDP, GLYHGB ####[address] [address] Erythrocytes (RBC) 0.0 per 100 WBC Normal 0.0 M [facility] Comment on above: Result Comment: [address] [address] Performed By: #### A MY, CMPX, LIP, MG, VIDYA, CDP, GLYHGB ####[address] [address] Hematocrit (HCT) 39.6 % Normal 36.3-47.1 [facility] Comment on above: Performed By: #### A MY, CMPX, LIP, MG, VIDYA, CDP, GLYHGB ####[address] [address] Hemoglobin mass conc (Bld) 12.3 g/dL Normal 11.9-15.1 [facility] Comment on above: Performed By: #### A MY, CMPX, LIP, MG, VIDYA, CDP, GLYHGB ####[address] [address] MCH 29.9 pg Normal 25.2-33.5 [facility] Comment on above: Performed By: #### A MY, CMPX, LIP, MG, VIDYA, CDP, GLYHGB ####[address] [address] MCHC mass conc (RBC) 31.1 g/dL Normal 28.4-34.8 [facility] Comment on above: Performed By: #### A MY, CMPX, LIP, MG, VIDYA, CDP, GLYHGB ####[address] [address] MCV 96.1 fL Normal 82.6-102.9 [facility] Comment on above: Performed By: #### A MY, CMPX, LIP, MG, VIDYA, CDP, GLYHGB ####[facility] [address] [place] [address] Platelet mean volume (PMV) 9.2 fL Normal 8.1-13.5 [facility] Comment on above: Performed By: #### A MY, CMPX, LIP, MG, VIDYA, CDP, GLYHGB ####[facility] [address] [place] [address] Platelets 396 10*3/uL Normal 138-453 [facility] Comment on above: Performed By: #### A MY, CMPX, LIP, MG, VIDYA, CDP, GLYHGB ####[facility] [address] [place] [address] WBC (Leukocytes) 11.9 10*3/uL High 3.5-11.3 [facility] Comment on above: Performed By: #### A MY, CMPX, LIP, MG, VIDYA, CDP, GLYHGB ####[address] [place] [address] Discharge Summaryon 12-24-19 18 HIM IP Note OR Application Systems Architect Normal [facility] Plan of Careon 12-23-2017 HIM IP Note OR Application Systems Architect Normal [facility] Progress Noteon 12-23-2017 HIM IP Note OR Application Systems Architect Normal [facility] Basic Metabolic Profon 12-22 (cont.) Normal [facility] Comment on above: Result Comment: Aver age GFR for 40-49 years old: 99 mL/min/1.73sq mChronic Kidney Disease: <60 mL/min/1.73sq mKidney failure: <15 mL/min/1.73sq meGFR calculated using average adult body mass. Additional eGFR calculator available at:http://www.[employer].com/multiple_crcl_2012.htmMer [facility] [address] [place] [address] Performed By: #### A MY, CMPX, LIP, MG, VIDYA, CDP, GLYHGB ####[facility] [address] [place] [address] Anion gap 14 mmol/L Normal 9-17 [facility] Comment on above: Performed By: #### A MY, CMPX, LIP, MG, VIDYA, CDP, GLYHGB ####[address] [address] Calcium 8.9 mg/dL Normal 8.6-10.4 [facility] Comment on above: Performed By: #### A MY, CMPX, LIP, MG, VIDYA, CDP, GLYHGB ####[address] [address] Chloride 100 mmol/L Normal 98-107 [facility] Comment on above: Performed By: #### A MY, CMPX, LIP, MG, VIDYA, CDP, GLYHGB ####[address] [address] CO2 21 mmol/L Normal 20-31 [facility] Comment on above: Performed By: #### A MY, CMPX, LIP, MG, VIDYA, CDP, GLYHGB ####[address] [address] Creatinine 0.40 mg/dL Low 0.50-0.90 [facility] Comment on above: Performed By: #### A MY, CMPX, LIP, MG, VIDYA, CDP, GLYHGB ####[address] [address] eGFR (non-black) mL/min/{1.73_m2} Normal >60 [facility] Comment on above: Performed By: #### A MY, CMPX, LIP, MG, VIDYA, CDP, GLYHGB ####[facility] [address] [place] [address] Glucose mass conc 273 mg/dL High 70-99 [facility] Comment on above: Performed By: #### A MY, CMPX, LIP, MG, VIDYA, CDP, GLYHGB ####[address] [address] Potassium molar conc 3.9 mmol/L Normal 3.7-5.3 [facility] Comment on above: Performed By: #### A MY, CMPX, LIP, MG, VIDYA, CDP, GLYHGB ####[address] [address] Sodium 135 mmol/L Normal 135-144 [facility] Comment on above: Performed By: #### A MY, CMPX, LIP, MG, VIDYA, CDP, GLYHGB ####[address] [address] Urea nitrogen 5 mg/dL Low 6-20 [facility] Comment on above: Performed By: #### A MY, CMPX, LIP, MG, VIDYA, CDP, GLYHGB ####[address] [address] BUN/CRE Ratio NOT REPORTED Normal -20 [facility] Comment on above: Performed By: #### A MY, CMPX, LIP, MG, VIDYA, CDP, GLYHGB ####[address] [address] Staging: NOT REPORTED Normal [facility] Comment on above: Performed By: #### A MY, CMPX, LIP, MG, VIDYA, CDP, GLYHGB ####[address] [address] CBCon 12-22-2017 Erythrocyte distribution width Auto Ratio (RBC) 12.6 % Normal 11.8-14.4 [facility] Comment on above: Performed By: #### A MY, CMPX, LIP, MG, IVDYA, CDP, GLYHGB ####[address] [address] Erythrocytes (RBC) 4.08 10*6/uL Normal 3.95-5.11 [facility] Comment on above: Performed By: #### A MY, CMPX, LIP, MG, VIDYA, CDP, GLYHGB ####[address] [address] Erythrocytes (RBC) 0.0 per 100 WBC Normal 0.0 M [facility] Comment on above: Result Comment: [address] [address] Performed By: #### A MY, CMPX, LIP, MG, VIDYA, CDP, GLYHGB ####[address] [address] Hematocrit (HCT) 37.9 % Normal 36.3-47.1 [facility] Comment on above: Performed By: #### A MY, CMPX, LIP, MG, VIDYA, CDP, GLYHGB ####[address] [address] Hemoglobin mass conc (Bld) 12.2 g/dL Normal 11.9-15.1 [facility] Comment on above: Performed By: #### A MY, CMPX, LIP, MG, VIDYA, CDP, GLYHGB ####[address] [address] MCH 29.9 pg Normal 25.2-33.5 [facility] Comment on above: Performed By: #### A MY, CMPX, LIP, MG, VIDYA, CDP, GLYHGB ####[address] [address] MCHC mass conc (RBC) 32.2 g/dL Normal 28.4-34.8 [facility] Comment on above: Performed By: #### A MY, CMPX, LIP, MG, VIDYA, CDP, GLYHGB ####[facility] [address] [place] [address] MCV 92.9 fL Normal 82.6-102.9 [facility] Comment on above: Performed By: #### A MY, CMPX, LIP, MG, VIDYA, CDP, GLYHGB ####[address] [place] [address] Platelet mean volume (PMV) 9.2 fL Normal 8.1-13.5 [facility] Comment on above: Performed By: #### A MY, CMPX, LIP, MG, VIDYA, CDP, GLYHGB ####[address] [address] Platelets 385 10*3/uL Normal 138-453 [facility] Comment on above: Performed By: #### A MY, CMPX, LIP, MG, VIDYA, CDP, GLYHGB ####[address] [address] WBC (Leukocytes) 14.0 10*3/uL High 3.5-11.3 [facility] Comment on above: Performed By: #### A MY, CMPX, LIP, MG, VIDYA, CDP, GLYHGB ####[address] [address] Histology [facility] 12-22 Histology [facility] (NOTE)[id number] Y LABORATORIESCONSULTING PATHOLOGISTS CORPORATIONANATOMIC HKPIRDMWL[address] [place] [phone] Fax: NONGYNECOLOGICA L CYTOPATHOLOGY CONSULTATIONPatient Name: TRUMAN WARNERGUILLE NickersonFirelands Regional Medical Center Rec: [id number] Number: [id number]: 12/22/2017Received: 12/22/2017Reported: 12/23/2017 13:13-- Diagnosis --JANA RECTAL [...] culture.JET 12/22/17MICROSCOPIC DESCRIPTION Microscopic examination performed. Normal [facility] Plan of Careon 12-22-2017 HIM IP Note OR Application Systems Architect Normal [facility] HIM IP Note OR Application Systems Architect Normal [facility] HIM IP Note OR Application Systems Architect Normal [facility] Progress Noteon 12-22-2017 HIM IP Note OR Application Systems Architect Normal [facility] HIM IP Note OR Application Systems Architect Normal [facility] HIM IP Note OR Application Systems Architect Normal [facility] Amylaseon 12-21-2017 Amylase 37 U/L Normal 28-100 [facility] Comment on above: Result Comment: [address] [address] Performed By: #### A MY, CMPX, LIP, MG, VIDYA, CDP, GLYHGB ####[address] [address] CBC with Diffon 12-21-2017 Abs. Basophil 0.11 k/uL Normal 0.00-0.20 [facility] Comment on above: Performed By: #### A MY, CMPX, LIP, MG, VIDYA, CDP, GLYHGB ####[address] [address] Abs.Neutrophil (Seg) 6.42 k/uL Normal 1.50-8.10 [facility] Comment on above: Performed By: #### A MY, CMPX, LIP, MG, VIDYA, CDP, GLYHGB ####[place] [address] Basophils/100 WBC Auto (Bld) 1 % Normal 0-2 [facility] Comment on above: Performed By: #### A MY, CMPX, LIP, MG, VIDYA, CDP, GLYHGB ####[place] [address] Eosinophils 0.30 10*3/uL Normal 0.00-0.44 [facility] Comment on above: Performed By: #### A MY, CMPX, LIP, MG, VIDYA, CDP, GLYHGB ####[place] [address] Eosinophils/100 leukocytes 3 % Normal 1-4 [facility] Comment on above: Performed By: #### A MY, CMPX, LIP, MG, VIDYA, CDP, GLYHGB ####[address] [address] Erythrocyte distribution width Auto Ratio (RBC) 12.8 % Normal 11.8-14.4 [facility] Comment on above: Performed By: #### A MY, CMPX, LIP, MG, VIDYA, CDP, GLYHGB ####[place] [address] Erythrocytes (RBC) 0.0 per 100 WBC Normal 0.0 [facility] Comment on above: Performed By: #### A MY, CMPX, LIP, MG, VIDYA, CDP, GLYHGB ####[address] [address] Erythrocytes (RBC) 4.56 10*6/uL Normal 3.95-5.11 [facility] Comment on above: Performed By: #### A MY, CMPX, LIP, MG, VIDYA, CDP, GLYHGB ####[address] [address] Granulocytes/100 WBC (Bld) 0.20 k/uL Normal 0.00-0.30 [facility] Comment on above: Result Comment: [id number] [place] [address] Performed By: #### A MY, CMPX, LIP, MG, VIDYA, CDP, GLYHGB ####[address] [address] Hematocrit (HCT) 42.1 % Normal 36.3-47.1 [facility] Comment on above: Performed By: #### A MY, CMPX, LIP, MG, VIDYA, CDP, GLYHGB ####[address] [address] Hemoglobin mass conc (Bld) 13.9 g/dL Normal 11.9-15.1 [facility] Comment on above: Performed By: #### A MY, CMPX, LIP, MG, VIDYA, CDP, GLYHGB ####[address] [address] Immature granulocytes #/vol (Bld) 2 % High 0 [facility] Comment on above: Performed By: #### A MY, CMPX, LIP, MG, VIDYA, CDP, GLYHGB ####[address] [address] Lymphocytes 4.08 10*3/uL High 1.10-3.70 [facility] Comment on above: Performed By: #### A MY, CMPX, LIP, MG, VIDYA, CDP, GLYHGB ####[address] [address] Lymphocytes/100 leukocytes 34 % Normal 24-43 [facility] Comment on above: Performed By: #### A MY, CMPX, LIP, MG, VIDYA, CDP, GLYHGB ####[address] [address] MCH 30.5 pg Normal 25.2-33.5 [facility] Comment on above: Performed By: #### A MY, CMPX, LIP, MG, VIDYA, CDP, GLYHGB ####[address] [address] MCHC mass conc (RBC) 33.0 g/dL Normal 28.4-34.8 [facility] Comment on above: Performed By: #### A MY, CMPX, LIP, MG, VIDYA, CDP, GLYHGB ####[address] [address] MCV 92.3 fL Normal 82.6-102.9 [facility] Comment on above: Performed By: #### A MY, CMPX, LIP, MG, VIDYA, CDP, GLYHGB ####[address] [address] Monocytes 0.84 10*3/uL Normal 0.10-1.20 [facility] Comment on above: Performed By: #### A MY, CMPX, LIP, MG, VIDYA, CDP, GLYHGB ####[address] [address] Monocytes/100 leukocytes 7 % Normal 3-12 [facility] Comment on above: Performed By: #### A MY, CMPX, LIP, MG, VIDYA, CDP, GLYHGB ####[address] [address] Neutrophil (Seg) 53 % Normal 36-65 [facility] Comment on above: Performed By: #### A MY, CMPX, LIP, MG, VIDYA, CDP, GLYHGB ####[address] [address] Platelet mean volume (PMV) 9.8 fL Normal 8.1-13.5 [facility] Comment on above: Performed By: #### A MY, CMPX, LIP, MG, VIDYA, CDP, GLYHGB ####[address] [address] Platelets 435 10*3/uL Normal 138-453 [facility] Comment on above: Performed By: #### A MY, CMPX, LIP, MG, VIDYA, CDP, GLYHGB ####[address] [address] WBC (Leukocytes) 12.0 10*3/uL High 3.5-11.3 [facility] Comment on above: Performed By: #### A MY, CMPX, LIP, MG, VIDYA, CDP, GLYHGB ####[address] [address] Auto Diff Performed NOT REPORTED Normal [facility] Comment on above: Performed By: #### A MY, CMPX, LIP, MG, VIDYA, CDP, GLYHGB ####[address] [address] Erythrocyte morphology NOT REPORTED Normal [facility] Comment on above: Performed By: #### A MY, CMPX, LIP, MG, VIDYA, CDP, GLYHGB ####[address] [address] Platelets NOT REPORTED Normal [facility] Comment on above: Performed By: #### A MY, CMPX, LIP, MG, VIDYA, CDP, GLYHGB ####[address] [address] WBC Morphology NOT REPORTED Normal [facility] Comment on above: Performed By: #### A MY, CMPX, LIP, MG, VIDYA, CDP, GLYHGB ####[address] [address] Comp Metabolic Pr/rfx MGon 0 12-21-2017 Alanine aminotransferase (ALT) 13 U/L Normal 5-33 [facility] Comment on above: Result Comment: SPEC IMEN SLIGHTLY HEMOLYZED, RESULTS MAY BE ADVERSELY AFFECTED. Performed By: #### A MY, CMPX, LIP, MG, VIDYA, CDP, GLYHGB ####[address] [address] Albumin 3.7 g/dL Normal 3.5-5.2 [facility] Comment on above: Performed By: #### A MY, CMPX, LIP, MG, VIDYA, CDP, GLYHGB ####[address] [address] Albumin/Globulin Ratio 1.1 {ratio} Normal 1.0-2.5 M [facility] Comment on above: Performed By: #### A MY, CMPX, LIP, MG, VIDYA, CDP, GLYHGB ####[address] [address] Alkaline Phos 71 U/L Normal 35-104 [facility] Comment on above: Result Comment: SPEC IMEN SLIGHTLY HEMOLYZED, RESULTS MAY BE ADVERSELY AFFECTED. Performed By: #### A MY, CMPX, LIP, MG, VIDYA, CDP, GLYHGB ####[address] [address] Anion gap 16 mmol/L Normal 9-17 [facility] Comment on above: Performed By: #### A MY, CMPX, LIP, MG, VIDYA, CDP, GLYHGB ####[address] [address] Aspartate aminotransferase (AST) 19 U/L Normal <32 [facility] Comment on above: Result Comment: SPEC IMEN SLIGHTLY HEMOLYZED, RESULTS MAY BE ADVERSELY AFFECTED. Performed By: #### A MY, CMPX, LIP, MG, VIDYA, CDP, GLYHGB ####[address] [place] [address] Bilirubin Ql (U) 0.26 mg/dL Low 0.3-1.2 [facility] Comment on above: Performed By: #### A MY, CMPX, LIP, MG, VIDYA, CDP, GLYHGB ####[address] [address] Calcium 9.3 mg/dL Normal 8.6-10.4 [facility] Comment on above: Performed By: #### A MY, CMPX, LIP, MG, VIDYA, CDP, GLYHGB ####[address] [address] Chloride 96 mmol/L Low 98-107 [facility] Comment on above: Performed By: #### A MY, CMPX, LIP, MG, VIDYA, CDP, GLYHGB ####[address] [address] CO2 22 mmol/L Normal 20-31 [facility] Comment on above: Performed By: #### A MY, CMPX, LIP, MG, VIDYA, CDP, GLYHGB ####[address] [address] Creatinine 0.55 mg/dL Normal 0.50-0.90 [facility] Comment on above: Performed By: #### A MY, CMPX, LIP, MG, VIDYA, CDP, GLYHGB ####[address] [address] eGFR (non-black) mL/min/{1.73_m2} Normal >60 [facility] Comment on above: Performed By: #### A MY, CMPX, LIP, MG, VIDYA, CDP, GLYHGB ####[address] [address] Glucose mass conc 286 mg/dL High 70-99 [facility] Comment on above: Performed By: #### A MY, CMPX, LIP, MG, VIDYA, CDP, GLYHGB ####[address] [place] [address] Potassium molar conc 4.5 mmol/L Normal 3.7-5.3 [facility] Comment on above: Result Comment: SPEC IMEN SLIGHTLY HEMOLYZED, RESULTS MAY BE ADVERSELY AFFECTED. Performed By: #### A MY, CMPX, LIP, MG, VIDYA, CDP, GLYHGB ####[address] [address] Protein 7.2 g/dL Normal 6.4-8.3 [facility] Comment on above: Performed By: #### A MY, CMPX, LIP, MG, VIDYA, CDP, GLYHGB ####[address] [address] Sodium 134 mmol/L Low 135-144 [facility] Comment on above: Performed By: #### A MY, CMPX, LIP, MG, VIDYA, CDP, GLYHGB ####[address] [address] Urea nitrogen 9 mg/dL Normal 6-20 [facility] Comment on above: Performed By: #### A MY, CMPX, LIP, MG, VIDYA, CDP, GLYHGB ####[address] [address] (cont.) Normal [facility] Comment on above: Result Comment: Aver age GFR for 40-49 years old: 99 mL/min/1.73sq mChronic Kidney Disease: <60 mL/min/1.73sq mKidney failure: <15 mL/min/1.73sq meGFR calculated using average adult body mass. Additional eGFR calculator available at:[email or web address] [address] Performed By: #### A MY, CMPX, LIP, MG, VIDYA, CDP, GLYHGB ####[address] [address] BUN/CRE Ratio NOT REPORTED Normal 9-20 [facility] Comment on above: Performed By: #### A MY, CMPX, LIP, MG, VIDYA, CDP, GLYHGB ####[address] [address] Staging: NOT REPORTED Normal [facility] Comment on above: Performed By: #### A MY, CMPX, LIP, MG, VIDYA, CDP, GLYHGB ####[address] [address] Consulton 12-21-2017 HIM IP Note OR Application Systems Architect Normal [facility] Hemoglobin A1Con 12-21-2017 Glucose mass conc 309 mg/dL Normal [facility] Comment on above: Result Comment: The ADA and AACC recommend providing the estimated average glucose result to permit better patient understanding of their HBA1c result.[address] [address] Performed By: #### A MY, CMPX, LIP, MG, VIDYA, CDP, GLYHGB ####[address] [address] Hemoglobin A1c/Hemoglobin.total mass fraction (Bld) 12.4 % High 4.0-6.0 [facility] Comment on above: Performed By: #### A MY, CMPX, LIP, MG, VIDYA, CDP, GLYHGB ####[address] [address] History and Physicalon 12-21 HIM IP Note OR Application Systems Architect Normal [facility] Lipaseon 12-21-2017 Lipase 22 U/L Normal 13-60 [facility] Comment on above: Result Comment: [facility] [address] [place] [id number] Performed By: #### A MY, CMPX, LIP, MG, VIDYA, CDP, GLYHGB ####[facility] [address] [address] Magnesiumon 12-21-2017 Magnesium 1.7 mg/dL Normal 1.6-2.6 [facility] Comment on above: Result Comment: [facility] [address] [place] [id number] Performed By: #### A MY, CMPX, LIP, MG, VIDYA, CDP, GLYHGB ####[address] [address] PTon 12-21-2017 INR Coag RelTime (PPP) 1.0 {INR} Normal [facility] Comment on above: Result Comment: Ther apeutic Range: Moderate Anticoagulant Intensity: INR = 2.0-3.0 High Anticoagulant Intensity: INR = 2.5-3.5[facility] [address] [place] [id number] Performed By: #### P T ####[address] [address] Prothrombin time (PT) Coag time (PPP) 10.5 s Normal 9.0-12.0 [facility] Comment on above: Performed By: #### P T ####[address] [address] Phosphorus, Inorg.on 018 Phosphorus, Inorg. 3.1 mg/dL Normal 2.6-4.5 [facility] Comment on above: Result Comment: [facility] [address] [place] [id number] Performed By: #### A MY, CMPX, LIP, MG, VIDYA, CDP, GLYHGB ####[address] [address] Plan of Careon 12-21-2017 HIM IP Note OR Application Systems Architect Normal [facility] HIM IP Note OR Application Systems Architect Normal [facility] Progress Noteon 12-21-2017 HIM IP Note OR Application Systems Architect Normal [facility] HIM IP Note OR Application Systems Architect Normal [facility] HIM IP Note OR Application Systems Architect Normal [facility] US NON OB TRANSVAGINALon US NON OB [...] by:LAY Bojorquezigned by:Kevin Reese MD12/21/17inal result Normal [facility] Vital Signs Date Time Vital Sign Value Performing Clinician Facility 06-16-2023 20:45-0400 Diastolic blood pressure 76 mm[Hg] Vivian Might JOINTER MACHINE - YEAST WASHER Work Phone: [facility] 06-16-2023 20:45-0400 Heart rate 88 /min Vivian Might JOINTER MACHINE - YEAST WASHER [facility] [place] 06-16-2023 20:45-0400 Respiratory rate 16 /min Vivian Might JOINTER MACHINE - YEAST WASHER Work Phone: [facility] [place] 06-16-2023 20:45-0400 SaO2% (BldA) [Mass fraction] 97 % Vivian Might JOINTER MACHINE - YEAST WASHER [facility] [place] 06-16-2023 20:45-0400 Systolic blood pressure 128 mm[Hg] Vivian Might JOINTER MACHINE - YEAST WASHER Work Phone: [facility] [place] 06-16-2023 17:32-0400 Body temperature 99 [degF] Vivian Might JOINTER MACHINE - YEAST WASHER Work Phone: [facility] [place] 06-14-2023 11:31-0400 Respiratory rate 18 /min Emiliano Segundo [facility] [place] 06-14-2023 07:34-0400 SaO2% (BldA) [Mass fraction] 95 % Emiliano Segundo MD [facility] [place] 06-14-2023 06:45-0400 Body temperature 97.59 [degF] [facility]iliano [facility]undo [facility] [place] 06-14-2023 06:45-0400 Diastolic blood pressure 77 mm[Hg] Emiliano Segundo MD [facility] 06-14-2023 06:45-0400 Heart rate 74 /min Emiliano Segundo MD [facility] [place] 06-14-2023 06:45-0400 Systolic blood pressure 136 mm[Hg] Emiliano Segundo MD [facility] [place] 06-14-2023 05:00-0400 Body mass index (BMI) [Ratio] 33.88 kg/m2 Emiliano Segundo MD [facility] [place] 06-14-2023 05:00-0400 Body weight 95.21 kg Emiliano Segundo MD [facility] [place] 06-13-2023 10:06-0400 Body height 167.6 cm Emiliano Segundo MD [facility] [place] 01-19-2023 20:55-0400 Body height 167.[address] [place] 01-19-2023 20:55-0400 Body mass index (BMI) [Ratio] 33.89 kg/m2 [facility] [place] 01-19-2023 20:55-0400 Body weight 95.25 kg Mthz 1 [facility] [employer] 12-08-2022 14:15-0400 Diastolic blood pressure 76 mm[Hg] Tari Curtis MD Work Phone[email or web address] 12-08-2022 14:15-0400 Heart rate 88 /min Tari Curtis MD Work Phone: [facility] [employer] 12-08-2022 14:15-0400 Respiratory rate 16 /min Tari Curtis MD Work Phone[email or web address] 12-08-2022 14:15-0400 SaO2% (BldA) [Mass fraction] 95 % Tari Curtis MD Work Phone: [email or web address] 12-08-2022 14:15-0400 Systolic blood pressure 135 mm[Hg] Tari Curtis MD Work Phone: [facility] [employer] 12-08-2022 13:48-0400 Body temperature 98.1 [degF] Tari Curtis MD Work Phone: [email or web address] 12-08-2022 12:16-0400 Body mass index (BMI) [Ratio] 33.99 kg/m2 Tari Curtis MD Work Phone: [email or web address] 12-08-2022 12:16-0400 Body weight 95.53 kg Tari Curtis MD Work Phone: [facility] [employer] 11-25-2022 16:01-0500 Body height 167.6 cm Tari Curtis MD Work Phone: [facility] [employer] 09-07-2022 12:20-0500 Body height 167.64 cm Shiraz Sherman Other [employer] Other 08-06-2022 18:00-0500 Body temperature 98.1 [degF] Vivian Might JOINTER MACHINE - YEAST WASHER Work Phone: [facility] [employer] 08-06-2022 18:00-0500 Diastolic blood pressure 51 mm[Hg] Vivian Might JOINTER MACHINE - YEAST WASHER Work Phone: [facility] [employer] 08-06-2022 18:00-0500 Heart rate 99 /min Vivian Might JOINTER MACHINE - YEAST WASHER Work Phone: [email or web address] 08-06-2022 18:00-0500 Respiratory rate 18 /min Vivian Might JOINTER MACHINE - YEAST WASHER Work Phone: [facility] [employer] 08-06-2022 18:00-0500 SaO2% (BldA) [Mass fraction] 94 % Vivian Might JOINTER MACHINE - YEAST WASHER Work Phone: [facility] [employer] 08-06-2022 18:00-0500 Systolic blood pressure 102 mm[Hg] Vivian Might JOINTER MACHINE - YEAST WASHER Work Phone[facility] [place] 08-06-2022 13:59-0500 Body height 167.6 cm Vivian Might JOINTER MACHINE - YEAST WASHER Work Phone: [email or web address] 08-06-2022 13:59-0500 Body mass index (BMI) [Ratio] 34.7 kg/m2 Vivian Might JOINTER MACHINE - YEAST WASHER Work Phone[facility] [place] 08-06-2022 13:59-0500 Body weight 97.52 kg Vivian Might JOINTER MACHINE - YEAST WASHER Work Phone[facility] [place] 01-20-2021 14:45-0400 Diastolic blood pressure 65 mm[Hg] [facility] Radiologist [facility] [employer] Work Phone: 01-20-2021 14:45-0400 Heart rate 94 /min [facility] Radiologist [facility] Work Phone: 01-20-2021 14:45-0400 Respiratory rate 14 /min [facility] Radiologist [facility] Work Phone: 01-20-2021 14:45-0400 SaO2% (BldA) [Mass fraction] 95 % [facility] [employer] Phone: 01-20-2021 14:45-0400 Systolic blood pressure 123 mm[Hg] [facility] [employer] Phone: 01-20-2021 11:44-0400 Body height 167.6 cm [facility] [employer] Phone: 01-20-2021 11:44-0400 Body mass index (BMI) [Ratio] 30.67 kg/m2 [facility] [employer] Phone: 01-20-2021 11:44-0400 Body temperature 97.39 [degF] [facility] [employer] Phone: 01-20-2021 11:44-0400 Body weight 86.18 kg [facility] [employer] Phone: Encounters Encounter Date Encounter Type Care Provider Facility Start: 07-02-2024 End: 07-04-2024 ambulatory VIVIAN Combs ANA ROSA [facility] Start: 07-02-2024 End: 07-04-2024 Subsequent hospital visit by physician [facility] Scan Room [facility] Laboratory Comment on above: Recurrent pansinusit is Recurrent pansinusit is; Recurrent sinusitis Start: 06-12-2024 End: 06-12-2024 ambulatory Vivian Oseguera APRN-YEAST WASHER Facility[facility] Start: 06-11-2024 End: 06-11-2024 ambulatory Vivian Oseguera APRN-YEAST WASHER Facility:[facility] [place] Start: 06-08-2024 End: 06-08-2024 ambulatory ROLAN Martinezy [facility] Start: 06-08-2024 End: 06-08-2024 Subsequent hospital visit by physician Vivian Oseguera APRN - [place] Work Phone: [facility] Laboratory Start: 05-22-2024 End: 05-22-2024 ambulatory VIVIAN Combs ANA ROSA [facility] Start: 05-22-2024 End: 05-22-2024 Subsequent hospital visit by physician Dread Sunshine [facility] Physical Therapy Comment on above: Arrived Start: 05-17-2024 End: 05-17-2024 ambulatory VIVIAN W MIGHT [facility] Start: 05-14-2024 End: 05-14-2024 ambulatory VIVIAN W MIGHT [facility] Start: 05-10-2024 End: 05-10-2024 [facility] Start: 05-08-2024 End: 05-08-2024 ambulatory [facility] Start: 05-08-2024 End: 05-08-2024 ambulatory VIVIAN W MIGHT [facility] Start: 05-01-2024 End: 05-01-2024 ambulatory VIVIAN W MIGHT [facility] Start: 04-25-2024 End: 04-25-2024 ambulatory VIVIAN W MIGHT [facility] Start: 04-23-2024 End: 04-23-2024 ambulatory VIVIAN W MIGHT [facility] Start: 04-23-2024 End: 04-23-2024 Subsequent hospital visit by physician Phu Mora [facility] Physical Therapy Comment on above: Arrived Start: 04-16-2024 End: 04-16-2024 ambulatory VIVIAN W MIGHT [facility] Start: 04-12-2024 End: 04-12-2024 Subsequent hospital visit by physician Génesis Hickman PTA [facility] Physical Therapy Start: 04-12-2024 End: 04-12-2024 ambulatory BARBARA MCGHEE [facility] Start: 04-11-2024 End: 04-11-2024 ambulatory VIVIAN W MIGHT [facility] Start: 03-30-2024 End: 03-30-2024 ambulatory VIVINA W MIGHT [facility] Start: 03-23-2024 End: 03-23-2024 ambulatory VIVIAN W MIGHT [facility] Start: 03-08-2024 End: 03-08-2024 ambulatory VIVIAN W MIGHT [facility] Start: 03-06-2024 End: 03-06-2024 ambulatory Vivian Mao Might JOINTER MACHINE-YEAST WASHER Facility[facility] Start: 03-05-2024 End: 03-05-2024 ambulatory ROLAN [facility] Start: 03-01-2024 End: 03-01-2024 Subsequent hospital visit by physician Lary Rea PTA [facility] Physical Therapy Start: 2024 End: 2024 ambulatory VIVIAN W MIGHT [facility] Start: 02-16-2024 End: 02-16-2024 ambulatory VIVIAN W MIGHT [facility] Start: 02-16-2024 End: 02-16-2024 Subsequent hospital visit by physician Dread Sunshine PTA [facility] Physical Therapy Comment on above: Arrived Start: 02-08-2024 End: 02-08-2024 ambulatory VIVIAN W MIGHT [facility] Start: 02-06-2024 End: 02-06-2024 ambulatory VIVIAN W MIGHT [facility] Start: 02-01-2024 End: 02-01-2024 ambulatory VIVAIN W MIGHT [facility] Start: 01-30-2024 End: 01-30-2024 ambulatory VIVIAN W MIGHT [facility] Start: 01-25-2024 End: 01-25-2024 ambulatory VIVIAN W MIGHT [facility] Start: 01-16-2024 End: 01-16-2024 Subsequent hospital visit by physician Disha Escamilla PTA [facility] Physical Therapy Start: 01-10-2024 End: 01-10-2024 ambulatory VIVIAN W MIGHT [facility] Start: 01-09-2024 End: 01-09-2024 ambulatory Vivian Mao Might JOINTER MACHINE-YEAST WASHER Facility: [facility] Start: 12-27-2023 End: 12-29-2023 ambulatory VIVIAN W MIGHT [facility] Start: 12-26-2023 End: 12-26-2023 ambulatory Alexander Story MD Facility:[facility] Start: 12-07-2023 End: 12-09-2023 Subsequent hospital visit by physician [facility] Comment on above: Lower leg edema Start: 12-07-2023 End: 12-09-2023 ambulatory [facility] Start: 11-22-2023 End: 11-22-2023 ambulatory Vivian Oseguera JOINTER MACHINE-YEAST WASHER [facility] Start: 11-21-2023 End: 11-21-2023 [facility] Start: 10-14-2023 End: 10-14-2023 Emergency department patient visit VIVIAN OSEGUERA [facility] Start: 09-06-2023 End: 09-06-2023 ambulatory [facility] Start: 08-23-2023 End: 08-23-2023 ambulatory Rolan Sim JOINTER MACHINE-YEAST WASHER Facility: [facility] Start: 08-05-2023 End: 08-05-2023 ambulatory Vivian Oseguera JOINTER MACHINE-YEAST WASHER Facility: [facility] Start: 08-04-2023 End: 08-06-2023 ambulatory [facility] Start: 08-03-2023 End: 08-03-2023 ambulatory ROLAN SIM [facility] Start: 07-21-2023 End: 07-23-2023 ambulatory [facility]IVIAN [facility] Start: 07-13-2023 End: 07-15-2023 [facility] Start: 06-16-2023 End: 06-16-2023 Emergency department patient visit Vivian Oseguera JOINTER MACHINE [facility] Work Phone: [facility] ED Comment on above: Syncope, unspecified syncope type (Primary Dx) Start: 06-10-2023 End: 06-14-2023 Evaluation and management of inpatient Emiliano Segundo MD [facility] SURG Comment on above: Recurrent syncope (P rimary Dx); Pneumonia of both lower lobes due to infectious organism Start: 02-25-2023 ambulatory NARENDRANATH LAKSHMIPATHY . Facility: Start: 02-08-2023 End: 02-08-2023 ambulatory NARENDRANATH LAKSHMIPATHY . Facility:[facility] Start: 01-27-2023 End: 01-28-2023 ambulatory NARENDRANATH LAKSHMIPATHY . Facility:[facility] Start: 01-19-2023 End: 01-19-2023 Subsequent hospital visit by physician Elaine Sleep 1 [facility] Sleep Center Comment on above: LAYNE (obstructive sle ep apnea) Start: 01-11-2023 End: 01-11-2023 ambulatory NARENDRANATH LAKSHMIPATHY . Facility: Start: 12-30-2022 End: 12-31-2022 ambulatory NARENDRANATH LAKSHMIPATHY . Facility:[facility] Start: 12-28-2022 End: 12-30-2022 Subsequent hospital visit by physician [facility] Mri Scanner [facility] MRI Comment on above: Thoracic neuritis Start: 12-08-2022 End: 12-08-2022 Subsequent hospital visit by physician Tari Curtis MD Work Phone: [facility] OR Comment on above: Screening for colon cancer Start: 11-30-2022 End: 12-01-2022 ambulatory NARENDRANATH LAKSHMIPATHY . Facility: Start: 11-23-2022 End: 11-23-2022 Subsequent hospital visit by physician Elaine Sleep 1 [facility] Sleep Center Comment on above: Tired; Fatigue, unspecified type; LAYNE (obstructive sleep apnea) Start: 11-17-2022 End: 11-19-2022 Subsequent hospital visit by physician [facility] Mri Scanner [facility] MRI Comment on above: Lumbar radiculitis Start: 10-21-2022 End: 10-22-[address] DOCTOR URIBE Facility: Start: 10-08-2022 End: 10-08-2022 Patient encounter status [facility] EKG Start: 10-08-2022 End: 10-08-2022 Subsequent hospital visit by physician [facility] Continuous Absorption Process Operator [facility] EKG Comment on above: Syncope and collapse ; Preop cardiovascular exam; Dizziness; Primary hypertension; Mixed hyperlipidemia; Tobacco abuse counseling Start: 10-04-2022 Admission to [facility] Start: 10-04-2022 End: 10-04-2022 ambulatory NON STAFF Facility:[facility] Start: 10-01-2022 End: 10-01-2022 Subsequent hospital visit by physician [facility] Tilt Table Study Room [facility] Stress Lab Comment on above: Canceled (Other) Start: 09-30-2022 End: 09-30-2022 ambulatory NON STAFF Facility:[facility] Start: 09-30-2022 End: 09-30-2022 ambulatory NON STAFF [facility] Work Phone: Start: 09-30-2022 End: 09-30-2022 Patient encounter procedure [facility] Xxc-Hjk-Sffnpkkc Testing Work Phone: Start: 09-29-2022 End: 09-29-2022 Subsequent hospital visit by physician Sara Tilt Table Study Room [facility] Stress Lab Comment on above: Postural syncope Start: 09-21-2022 End: 09-21-2022 ambulatory NON STAFF Facility:[facility] Start: 09-21-2022 End: 09-21-2022 ambulatory NON STAFF [facility] Work Phone: Start: 09-21-2022 End: 09-21-2022 Patient encounter procedure [facility] Xsm-Jas-Dwnblsey Testing Work Phone: Start: 09-21-2022 End: 09-21-2022 Subsequent hospital visit by physician Vivian Bullard CNP Work Phone: [facility] Laboratory Comment on above: Controlled type 2 di abetes mellitus with diabetic polyneuropathy, with long-term current use of insulin (HCC) Start: 09-14-2022 End: 09-14-[address] DOCTOR URIBE Facility:[facility] Start: 09-10-2022 End: 09-10-2022 Subsequent hospital visit by physician Elaine Covid Screening Schedule [facility] Covid Screening Comment on above: Arrived Start: 09-07-2022 Office outpatient vi sit 40 minutes Shiraz SOLIS [facility] Neurosurgery Start: 09-07-2022 End: 09-07-[address] DOCTOR URIBE [facility] [employer] Other Start: 09-03-2022 End: 09-03-2022 Subsequent [facility] Cov[facility] Covid Screening Comment on above: Arrived Start: 08-26-2022 End: 08-27-[address] DOCTOR URIBE Facility:[facility] Start: 08-10-2022 End: 08-10-[address] COREY [place] . Facility:[facility] Start: 08-06-2022 End: 08-06-2022 Subsequent hospital visit by physician Vineet Nam PT [facility] Physical Therapy Start: 08-06-2022 End: 08-06-2022 Emergency department patient visit Vivian Bullard CNP Work Phone: [facility] ED Comment on above: Rib pain on left erik e (Primary Dx) Start: 08-04-2022 End: 08-06-2022 Subsequent hospital visit by physician [facility] Ultrasound Room [facility] Ultrasound Comment on above: Colon cancer screeni ng; Fatty liver Start: 08-02-2022 End: 08-02-2022 Subsequent hospital visit by physician Vineet Nam PT [facility] Physical Therapy Start: 07-29-2022 End: 07-30-[address] COREY [place] . Facility:[facility] Start: 07-23-2022 End: 07-23-2022 Subsequent hospital visit by physician Vineet Nam PT [facility] Physical Therapy Start: 07-19-2022 End: 07-19-2022 Subsequent hospital visit by physician Mulu Mccray PTA [facility] Laboratory Comment on above: Colon cancer screeni ng; Fatty liver Arrived Start: 07-16-2022 End: 07-16-2022 Subsequent hospital visit by physician Vineet Nam PT [facility] Physical Therapy Comment on above: Arrived Start: 07-13-2022 End: 07-13-2022 Subsequent hospital visit by physician Mulu Mccray PTA [facility] Physical Therapy Comment on above: Arrived Start: 07-12-2022 End: 07-12-2022 Subsequent hospital visit by physician Mulu Mccray PTA [facility] [facility] Comment on above: Arrived Start: 07-08-2022 End: 07-08-2022 Subsequent hospital visit by physician Vineet Nam PT [facility] Physical Therapy Comment on above: Arrived Start: 07-07-2022 End: 07-07-2022 Subsequent hospital visit by physician Karrie Beltran PTA [facility] Physical Therapy Comment on above: Arrived Start: 07-05-2022 End: 07-05-2022 Subsequent hospital visit by physician Karrie Beltran PTA [facility] Physical Therapy Comment on above: Arrived Start: 07-02-2022 End: 07-02-2022 Subsequent hospital visit by physician Vineet Nam PT [facility] Physical Therapy Comment on above: Arrived Start: 06-30-2022 End: 06-30-2022 Subsequent hospital visit by physician Karrie Beltran AUTO INSPECTOR [facility] Physical Therapy Comment on above: Arrived Start: 06-28-2022 End: 06-28-2022 Subsequent hospital visit by physician Karrie Beltran PTA [facility] Physical Therapy Comment on above: Arrived Start: 06-24-2022 End: 06-24-2022 Subsequent hospital visit by physician Vineet Nam PT [facility] Physical Therapy Comment on above: Arrived Start: 06-18-2022 End: 06-18-2022 Subsequent hospital visit by physician Karrie Beltran PTA [facility] Physical Therapy Comment on above: Arrived Start: 06-16-2022 End: 06-16-2022 Subsequent hospital visit by physician Karrie Beltran PTA [facility] Physical Therapy Comment on above: Arrived Start: 06-14-2022 End: 06-14-2022 Subsequent hospital visit by physician Karrie Beltran PTA [facility] Physical Therapy Comment on above: Arrived Start: 06-11-2022 End: 06-11-2022 Subsequent hospital visit by physician Vineet Nam PT [facility] Physical Therapy Comment on above: Arrived Start: 06-07-2022 End: 06-07-2022 Subsequent hospital visit by physician Karrie Beltran PTA [facility] Physical Therapy Start: 06-02-2022 End: 06-02-2022 Subsequent hospital visit by physician Karrie Beltran PTA [facility] Physical Therapy Start: 05-28-2022 End: 05-28-2022 Subsequent hospital visit by physician Vineet Nam PT [facility] Physical Therapy Comment on above: Arrived Start: 05-27-2022 End: 05-27-2022 Subsequent hospital visit by physician Vineet Nam PT [facility] Physical Therapy Comment on above: Arrived Start: 05-25-2022 End: 05-25-2022 Subsequent hospital visit by physician Nathan Garcia PT [facility] Physical Therapy Comment on above: Arrived Start: 05-18-2022 End: 05-18-2022 Subsequent hospital visit by physician Vineet Nam PT [facility] Physical Therapy Comment on above: Arrived Start: 04-29-2022 End: 04-30-[address] COREY CLEVELAND . Facility: Start: 04-13-2022 End: 04-13-[address] COREY CLEVELAND . Facility:[facility] Start: 04-09-2022 End: 04-09-2022 Subsequent hospital visit by physician Elaine [facility] Comment on above: Arrived Start: 04-01-2022 End: 04-02-2022 ambulatory KEILY CLEMENTS . Facility:[facility] Start: 03-31-2022 End: 04-02-2022 Subsequent hospital visit by physician Sara Vascular Imaging Room [facility] Vascular Lab Comment on above: Intermittent claudic ation (HCC) Start: 03-02-2022 End: 03-02-2022 ambulatory NON STAFF Facility:[facility] Start: 11-26-2021 End: 11-26-2021 Subsequent hospital visit by physician Elaine [facility] Comment on above: Arrived Start: 05-15-2021 End: 05-17-2021 Subsequent hospital visit by physician Sara Mammography Room At [facility] Mammography Comment on above: Other screening mamm ogram Start: 04-14-2021 ambulatory VIVIAN OSEGUERA [facility] Start: 03-11-2021 End: 03-11-2021 Subsequent hospital visit by physician Vivian Oseguera APRN - [place] Work Phone: [facility] Laboratory Comment on above: Abnormal LFTs Start: 03-04-2021 End: 03-04-2021 Subsequent hospital visit by physician Sara [facility] Stress [facility] Comment on above: Arrived Start: 03-03-2021 End: 03-03-2021 Subsequent hospital visit by physician Sara Echo Room [facility] Echocardiography Comment on above: Essential hypertensi on; Chest discomfort; Hyperlipidemia, unspecified hyperlipidemia type; Tobacco abuse Arrived Start: 02-09-2021 End: 02-09-2021 Subsequent hospital visit by physician Vviian Oseguera APRN - [place] Work Phone: [facility] Laboratory Comment on above: Hepatomegaly Start: 01-28-2021 End: 01-28-2021 Subsequent hospital visit by physician Vivian Oseguera APRN - [place] Work Phone: [facility] Laboratory Comment on above: Renal stones; Renal colic Start: 01-27-2021 End: 01-29-2021 Subsequent hospital visit by physician Sara Martini Dr Room 2 [facility] Radiology Comment on above: Renal stones Start: 01-20-2021 End: 01-22-2021 Subsequent hospital visit by physician Sraa Cat Scan Room [facility] CT Scan Comment on above: DDD (degenerative di sc disease), lumbar Start: 09-30-2020 End: 09-30-2020 Subsequent hospital visit by physician Elaine Covid Screening Schedule [facility] Covid Screening Comment on above: Preoperative testing Start: 08-13-2020 End: 08-13-2020 Subsequent hospital visit by physician Vivian WILD Laboratory Start: 07-25-2020 End: 07-27-2020 Subsequent hospital visit by physician Sara Cat Scan Room [facility] CT Scan Comment on above: Traumatic injury of head, initial encounter; Scalp tenderness Start: 07-08-2020 End: 07-08-2020 Subsequent hospital visit by physician Elaine Covid Screening Schedule [facility] Covid Screening Comment on above: Arrived Start: 01-25-2020 End: 01-27-2020 Subsequent hospital visit by physician Sara Martini Dr Room 4 [facility] Radiology Comment on above: Renal stones Start: 12-28-2019 End: 12-28-2019 Subsequent hospital visit by physician Vivian [facility] Laboratory Start: 10-18-2019 End: 10-20-2019 Subsequent hospital visit by physician Vivian Oseguera JOINTER MACHINE - YEAST WASHER [facility] Comment on above: Right upper quadrant abdominal pain Start: 10-03-2019 End: 10-03-2019 Subsequent hospital visit by physician Vivian Oseguera JOINTER MACHINE - YEAST WASHER [facility] E[facility] Start: 08-22-2019 End: 08-24-2019 Subsequent hospital visit by physician Sara Nuclear Room [facility] Nuclear Medicine Comment on above: Arrived Generalized abdomina l pain Start: 08-16-2019 End: 08-18-2019 Subsequent hospital visit by physician [facility] Nuclear Room [facility] Nuclear Medicine Comment on above: Generalized abdomina l pain Start: 08-03-2019 End: 08-05-2019 Subsequent hospital visit by physician [facility] Ultrasound Room 2 [facility] Ultrasound Comment on above: Thyromegaly Start: 07-30-2019 End: 08-01-2019 Subsequent hospital visit by physician [facility] Cat Scan Room [facility] CT Scan Comment on above: Abdominal pain, [...] End: 12-23-2017 Evaluation and management of inpatient [facility] Procedures Date Procedure Procedure Detail Performing Clinician Start: 07-02-2024 Basic metabolic pane l calcium total Vivian W Might JOINTER MACHINE - YEAST WASHER Work Phone: Start: 07-02-2024 Ct maxillofacial w/o contrast material Vivian W Might JOINTER MACHINE - YEAST WASHER Work Phone: Start: 06-08-2024 Assay of thyroid stimulating hormone tsh Rolan Chiquis Work Phone: Start: 12-07-2023 Radiologic exam ches t 2 views Vivian W Might JOINTER MACHINE - YEAST WASHER Work Phone: Start: 06-16-2023 Ct head/brain w/o co ntrast material Vicki Finnegan PA-C Work Phone: Start: 06-16-2023 Comprehensive metabo lic panel Vicki Finnegan PA-C Work Phone: Start: 06-16-2023 Radiologic exam ches t single view Vicki Finnegan PA-C Work Phone: Start: 06-14-2023 GLUCOSE, WHOLE BLOOD St tierney Hudson MD Work Phone: Start: 06-14-2023 GLUCOSE, WHOLE BLOOD St tierney Hudson MD Work Phone: Start: 06-14-2023 BASIC METABOLIC PANE L W/ REFLEX TO MG FOR LOW K Bubba Hudson MD Work Phone: Start: 06-14-2023 Blood count complete auto&auto difrntl wbc Bubba Hudson MD Work Phone: Start: 06-13-2023 GLUCOSE, WHOLE BLOOD St tierney Hudson MD Work Phone: Start: 06-13-2023 GLUCOSE, WHOLE BLOOD St tierney Hudson MD Work Phone: Start: 06-13-2023 GLUCOSE, WHOLE BLOOD St tierney Hudson MD Work Phone: Start: 06-13-2023 GLUCOSE, WHOLE BLOOD St tierney Hudson MD Work Phone: Start: 06-13-2023 End: 06-13-2023 Rhythm ecg 1-3 leads w/interpretation & report Unknown Provider Result Start: 06-13-2023 BASIC METABOLIC PANE L W/ REFLEX TO MG FOR LOW K Bubba Hudson MD Work Phone: Start: 06-13-2023 Blood count complete auto&auto difrntl wbc Bubba Hudson MD Work Phone: Start: 06-12-2023 GLUCOSE, WHOLE BLOOD St tierney Hudson MD Work Phone: Start: 06-12-2023 GLUCOSE, WHOLE BLOOD St tierney Hudson MD Work Phone: Start: 06-12-2023 GLUCOSE, WHOLE BLOOD St tierney Hudson MD Work Phone: Start: 06-12-2023 GLUCOSE, WHOLE BLOOD St tierney Hudson MD Work Phone: Start: 06-12-2023 End: 06-13-2023 Rhythm ecg 1-3 leads w/interpretation & report Unknown Provider Result Start: 06-12-2023 BASIC METABOLIC PANE L W/ REFLEX TO MG FOR LOW K Bubba Hudson MD Work Phone: Start: 06-12-2023 Blood count complete auto&auto difrntl wbc Bubba Hudson MD Work Phone: Start: 06-11-2023 GLUCOSE, WHOLE BLOOD St tierney Hudson MD Work Phone: Start: 06-11-2023 GLUCOSE, WHOLE BLOOD St tierney Hudson MD Work Phone: Start: 06-11-2023 GLUCOSE, WHOLE BLOOD St tierney Hudson MD Work Phone: Start: 06-11-2023 GLUCOSE, WHOLE BLOOD St tierney Hudson MD Work Phone: Start: 06-11-2023 GLUCOSE, WHOLE BLOOD St tierney Hudson MD Work Phone: Start: 06-11-2023 End: 06-11-2023 Rhythm ecg 1-3 leads w/interpretation & report Unknown Provider Result Start: 06-11-2023 BASIC METABOLIC PANE L W/ REFLEX TO MG FOR LOW K Bubba Hudson MD Work Phone: Start: 06-11-2023 Natriuretic peptide Adalid Hudson MD Work Phone: Start: 06-11-2023 LACTATE, SEPSIS Emiliano laurent MD Start: 06-11-2023 Procalcitonin (pct) Adalid Hudson MD Work Phone: Start: 06-10-2023 Culture bacterial [...] spinal canal tho racic w/o contrast matrl Barbara Mcghee MD Work Phone: Start: 12-08-2022 GLUCOSE, WHOLE BLOOD Vi vian N Ever MD Work Phone: Start: 12-08-2022 End: 12-08-2022 Colonoscopy Tari Curtis MD Work Phone: Start: 11-17-2022 Mri spinal canal lum bar w/o contrast material Keily Clements 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 [employer] Work Phone: Start: 09-30-2022 SARS Antigen (LFIA) Start: 09-29-2022 NM TILT TABLE TEST Albert t W Might JOINTER MACHINE - YEAST WASHER Work Phone: Start: 09-21-2022 Urine albumin quantitative Vivian W Might JOINTER MACHINE - YEAST WASHER Work Phone: Start: 09-21-2022 Lipid panel Vivian W Mi ght JOINTER MACHINE - YEAST WASHER Work Phone: Start: 09-21-2022 End: 09-21-2022 Basic metabolic panel calcium total Vivian W Might JOINTER MACHINE - YEAST WASHER Work Phone: Start: 08-06-2022 Assay of troponin [...] abdominal real ti me w/image limited Tari Curtis MD Work Phone: Start: 07-19-2022 Ceruloplasmin Tari Curtis MD Work Phone: Start: 07-19-2022 Hepatitis b surf ant ibody hbsab Tari Curtis MD Work Phone: Start: 03-31-2022 Non-invasive physiol ogic study extremity 3 levls Vivian Oseguera JOINTER MACHINE - [email or web address] Work Phone: Start: 05-15-2021 Screening mammograph y bi 2-view breast inc cad Vivian Oseguera JOINTER MACHINE - [email or web address] Work Phone: Start: 03-11-2021 Comprehensive metabo lic panel Claudia Willett JOINTER MACHINE [email or web address] Work Phone: Start: 03-11-2021 Hepatitis b core ant ibody hbcab total Claudia Willett JOINTER MACHINE [email or web address] Work Phone: Start: 03-11-2021 Iaad ia hepatitis b surface antigen Claudia Willett JOINTER MACHINE [email or web address] Work Phone: Start: 02-09-2021 Hepatic function panel Vivian Oseguera JOINTER MACHINE - YEAST WASHER Work Phone: Start: 01-28-2021 Urnls dip stick/tabl et reagent auto microscopy Meghan León JOINTER MACHINE - YEAST WASHER Work Phone: Start: 01-27-2021 Radiologic exam abdo men 1 view Meghan León JOINTER MACHINE - YEAST WASHER Work Phone: Start: 01-20-2021 Ct lumbar spine w/co ntrast material Corey Cleveland MD Work Phone: Start: 08-13-2020 Lipid panel Rolan Sim Work Phone: Start: 07-25-2020 Ct head/brain w/o co ntrast material Vivian Oseguera Work Phone: Start: 01-25-2020 Radiologic exam abdo men 1 view Meghan Lauryn Mau Work Phone: Start: 12-28-2019 Assay of free thyroxine Mario Alberto Zimmerman Work Phone: Start: 12-28-2019 Assay of gammaglobul in iga igd igg igm each Mario Alberto Bautista Zimmerman Work Phone: Start: 12-28-2019 Assay of thyroid stimulating hormone tsh Mario Alberto Zimmerman Work Phone: Start: 12-28-2019 Assay of thyroxine total Mario Alberto Zimmerman Work Phone: Start: 12-28-2019 C-reactive protein Pierre ael Cheo Zimmerman Work Phone: Start: 12-28-2019 Creatine kinase total M adam Zimmerman Work Phone: Start: 12-28-2019 Hemoglobin glycosyla priya a1c Mario Alberot Zimmerman Work Phone: Start: 12-28-2019 Lactate dehydrogenase ldh Mario Alberto Zimmerman Work Phone: Start: 12-28-2019 Sedimentation rate r bc automated Mario Alberto Zimmerman Work Phone: Start: 10-18-2019 Us abdominal real ti me w/image limited Flip Srinivasan Dea JOINTER MACHINE [email or web address] Work Phone: Start: 10-18-2019 Basic metabolic pane l calcium total Flip Dodson JOINTER MACHINE [email or web address] Work Phone: Start: 10-03-2019 Ecg routine ecg [...] Start: 07-20-2019 Hemoglobin glycosyla priya a1c Curtis [employer] Work Phone: Start: 07-13-[address] gtt 3 specimens Vivian W Might Work Phone: Start: 06-04-2019 Basic metabolic pane l calcium total Vivian W Might Work Phone: Start: 06-04-2019 Hemoglobin glycosyla priya a1c Vivian W Might Work Phone: Start: 06-04-2019 Lipid panel Vivian Combs Mi ght Work Phone: Start: 06-04-2019 Lipoprotein direct measurement ldl cholesterol Vivian W Ana Rosa Work Phone: Start: 12-23-2017 DISCHARGE PATIENT VAL [...] VAL SENIOR Start: 12-21-2017 Us transvaginal VAL Leos [employer] Start: 12-21-2017 PROTIME-INR VAL ROOTON Start: 12-21-2017 POCT GLUCOSE VAL MATHEW Start: 12-21-2017 POC GLUCOSE FINGERSTICK VAL SENIOR Start: 12-21-2017 POC GLUCOSE FINGERSTICK VAL SENIOR Start: 12-21-2017 POCT GLUCOSE VAL MATHEW Start: 12-21-2017 INITIATE OXYGEN THER APY PROTOCOL VAL SENIOR Start: 12-21-2017 AMYLASE VAL SWIFT HESON Start: 12-21-2017 CBC WITH AUTO DIFFERENTIAL VAL SENIOR Start: 12-21-2017 COMPREHENSIVE METABO LIC PANEL W/ REFLEX TO MG FOR LOW K VAL SENIOR Start: 12-21-2017 HEMOGLOBIN A1C VAL ENRIQUEZ TCHESON Start: 12-21-2017 LIPASE VAL SWIFT HESON Start: 12-21-2017 MAGNESIUM VAL SWIFT HESON Start: 12-21-2017 PHOSPHORUS VAL SWIFT HESON Start: [...] years Vaccine (2 of 2 - PPSV23) [employer] Start: 2038 Pneumococcal 0-64 years Vaccine (2 of 2) Pneumococcal 0-64 years Vaccine (2 of 2) [employer] Work Phone: Start: 12-08-2032 Screening for malignant neoplasm of colon [facility] [employer] Start: 12-08-2025 Screening for malignant neoplasm of colon [facility] [employer] Start: 07-02-2025 GFR test (Diabetes, CKD 3-4, OR last GFR 15-59) GFR test (Diabetes, CKD 3-4, OR last GFR 15-59) [employer] Start: 06-11-2025 COVID-19 Vaccine ( season) COVID-19 Vaccine ( season) [facility] [employer] Comment on above: Postponed from 05/27/2024 (Unavailable) Start: 06-11-2025 Hepatitis B vaccine (1 of 3 - 19+ 3-dose series) Hepatitis B vaccine (1 of 3 - 19+ 3-dose series) [facility] [employer] Comment on above: Postponed from 02/29/1992 (Patient Refus ed) Start: 06-11-2025 HIV screening HIV screen [facility] [employer] Comment on above: Postponed from 02/29/1988 (Patient Refus ed) Start: 06-11-2025 Shingles vaccine (2 of 2) Shingles vaccine (2 of 2) [facility] [employer] Comment on above: Postponed from 05/20/2023 (Patient Refus ed) Start: 06-08-2025 Hemoglobin A1c measurement A1C test (Diabetic or Prediabetic) [facility] Start: 05-23-2025 End: 05-23-2025 Patient encounter procedure 05/23/2025 2:00 PM EDT Office Visit [facility] [address] [place] [address] Nathan Ardon MD [address] [place] [address] [place] [address] 1 year follow up [facility] Comment on above: 1 year follow up Start: 05-17-2025 Depression Monitoring Depression Monitoring [facility] [employer] Start: 05-17-2025 Influenza vaccination Flu vaccine (#1) [email or web address] Comment on above: Postponed from 04/26/2024 (Patient Refus ed) Start: 03-28-2025 Depression Monitoring [facility] Start: 03-28-2025 Diabetic foot examination Diabetic foot exam [facility] Start: 03-23-2025 GFR test (Diabetes, CKD 3-4, OR last GFR 15-59) GFR test (Diabetes, CKD 3-4, OR last GFR 15-59) [facility] [employer] Start: 03-23-2025 Hemoglobin A1c measurement A1C test (Diabetic or Prediabetic) [facility] [employer] Start: 03-23-2025 Lipid panel Lipids [facility] [employer] Start: 03-23-2025 Urine screening for protein Diabetic Alb to Cr ratio (uACR) test [email or web address] Start: 12-06-2024 Depression Monitoring [facility] Start: 12-06-2024 GFR test (Diabetes, CKD 3-4, OR last GFR 15-59) GFR test (Diabetes, CKD 3-4, OR last GFR 15-59) [facility] [employer] Start: 11-21-2024 Hemoglobin A1c measurement A1C test (Diabetic or Prediabetic) [email or web address] Start: 10-01-2024 End: 10-01-2024 Patient encounter procedure 10/01/2024 2:00 PM EST Office Visit [facility] [address] [place] [address] Vivian Oseguera, JOINTER MACHINE - YEAST WASHER [address] [place] [address] 6 month f/u [facility] Comment on above: 6 month f/u Start: 09-28-2024 DTaP/Tdap/Td vaccine (1 - Tdap) DTaP/Tdap/Td vaccine (1 - Tdap) [facility] Comment on above: Postponed from 02/29/1992 (Patient Refus ed) Start: 09-11-2024 ambulatory Ambulatory Facility: [facility] Start: 08-07-2024 End: 08-07-2024 Patient encounter procedure 08/07/2024 10:00 AM EST Office Visit [address] [phone] Mechelle Rahman, JOINTER MACHINE - YEAST WASHER [address] [place] [id number] Oropharyngeal dysphagia, referral [facility] Comment on above: Oropharyngeal dysphagia, referral Start: 08-03-2024 Lipid panel Lipids [facility] Start: 08-03-2024 Urine screening for protein Diabetic Alb to Cr ratio (uACR) test [facility] Start: 07-01-2024 Glaucoma screening Diabetic retinal exam [facility] Comment on above: Postponed from 10/17/2020 (Not Indicated ) Start: 06-22-2024 Pneumococcal 0-64 years Vaccine (2 - PCV) Pneumococcal 0-64 years Vaccine (2 - PCV) [facility] Comment on above: Postponed from 05/10/2019 (Patient Refus ed) Start: 06-22-2024 Pneumococcal 0-64 years Vaccine (2 of 2 - PCV) Pneumococcal 0-64 years Vaccine (2 of 2 - PCV) [facility] Comment on above: Postponed from 05/10/2019 (Patient Refus ed) Start: 06-16-2024 GFR test (Diabetes, CKD 3-4, OR last GFR 15-59) GFR test (Diabetes, CKD 3-4, OR last GFR 15-59) [employer] Start: 06-14-2024 GFR test (Diabetes, CKD 3-4, OR last GFR 15-59) GFR test (Diabetes, CKD 3-4, OR last GFR 15-59) [employer] Start: 05-27-2024 COVID-19 Vaccine (#1) COVID-19 Vaccine (#1) [employer] Comment on above: Postponed from 1973 (Not Indicated ) Start: 05-27-2024 COVID-19 Vaccine ( season) COVID-19 Vaccine ( season) [employer] Comment on above: Postponed from 05/27/2023 (Not Indicated ) Start: 05-27-2024 Diabetic foot examination Diabetic foot exam [facility] [employer] Comment on above: Postponed from 03/18/2022 (Not Indicated ) Start: 05-27-2024 Hepatitis B vaccine (1 of 3 - 19+ 3-dose series) Hepatitis B vaccine (1 of 3 - 19+ 3-dose series) [employer] Comment on above: Postponed from 02/29/1992 (Not Indicated ) Start: 05-27-2024 Hepatitis B vaccine (1 of 3 - 3-dose series) Hepatitis B vaccine (1 of 3 - 3-dose series) [employer] Comment on above: Postponed from 1973 (Not Indicated ) Start: 05-27-2024 HIV screening HIV screen [employer] Comment on above: Postponed from 02/29/1988 (Patient Refus ed) Start: 05-27-2024 Shingles vaccine (2 of 2) Shingles vaccine (2 of 2) [employer] Comment on above: Postponed from 05/20/2023 (Unavailable) Start: 05-16-2024 End: 05-16-2024 Patient encounter procedure 05/16/2024 1:40 PM EDT Office Visit [facility] Part of [address] [phone] Nathan Ardon MD [address] [place] [address] [place] [address] 1 year [facility] Part of [facility] Comment on above: 1 year Start: 05-03-2024 End: 05-03-2024 Patient encounter procedure 05/03/2024 1:00 PM EDT Appointment [facility] Physical Therapy [address] [place] [address], [place] [address] Phu Mora [facility] Therapy Start: 05-01-2024 End: 05-01-2024 Patient encounter procedure 05/01/2024 2:45 PM EDT Appointment [facility] Physical Therapy [address] [place] [phone] Phu Mora [facility] Start: 04-26-2024 Influenza vaccination [facility] Start: 04-25-2024 End: 04-25-2024 Patient encounter procedure 04/25/2024 1:45 PM EDT Appointment [facility] Physical Therapy [address] [place] [address], [place] [address] Sonia Baum, PT [facility] Physical Therapy Comment on above: [facility] Start: 04-23-2024 End: 04-23-2024 Patient encounter procedure 04/23/2024 1:15 PM EDT Appointment [facility] Physical Therapy [address] [place] [address], [place] [address] Phu Mora [facility] Physical Therapy Start: 04-18-2024 End: 04-18-2024 Patient encounter procedure 04/18/2024 3:00 PM EDT Appointment [facility] Physical Therapy [address] [place] [address], [place] [address] Phu Mora [facility] Physical Therapy Start: 04-16-2024 End: 04-16-2024 Patient encounter procedure 04/16/2024 1:00 PM EDT Appointment [facility] Physical Therapy [address] [place] [address], [place] [address] Phu Mora [facility] Physical Therapy Start: 03-28-2024 End: 03-28-2024 Patient encounter procedure 03/28/2024 2:00 PM EDT Office Visit [address] [place] [address] Vivian Oseguera, JOINTER MACHINE - YEAST WASHER [address] [place] [address] 6 MONTH [facility] Comment on above: 6 MONTH Start: 03-25-2024 Influenza vaccination Flu vaccine (#1) [facility] Comment on above: Postponed from 04/26/2023 (Unavailable) Start: 03-24-2024 Depression Monitoring Depression Monitoring [facility] Start: 03-24-2024 Hemoglobin A1c measurement A1C test (Diabetic or Prediabetic) [facility] Start: 03-08-2024 End: 03-08-2024 Patient encounter procedure 03/08/2024 1:45 PM EDT Appointment [facility] Physical Therapy [address] [place], [place] [id number] Phu Mora A NEW REFERRAL FOR SHOULDER PAIN. SENT REQUEST TO ORIGINAL REFERRING DOCTOR TO SIGN OFF ON ADDING IT TO POC [facility] Physical Therapy Comment on above: NEW REFERRAL FOR SHOULDER PAIN. SENT REQ UEST TO ORIGINAL REFERRING DOCTOR TO SIGN OFF ON ADDING IT TO POC Start: 03-06-2024 End: 03-06-2024 Patient encounter procedure 03/06/2024 1:15 PM EDT Office Visit [facility] [place] [id number] Roxie Fernández, DO [address] [place] [address] follow up [facility] Comment on above: follow up Start: 2024 End: 2024 Patient encounter procedure 2024 1:45 PM EDT Appointment [facility] Physical Therapy [address] [place] [phone] Génesis Hickman PTA [facility] Physical Therapy Start: 02-23-2024 End: 02-23-2024 Patient encounter procedure 02/23/2024 3:00 PM EDT Appointment [facility] Physical Therapy [address] [place] [phone] Lary Rea PTA [facility] Physical Therapy Start: 02-14-2024 End: 02-14-2024 Patient encounter procedure 02/14/2024 3:[address] [facility] [address] [place] [phone] [facility] Start: 02-08-2024 End: 02-08-2024 Patient encounter procedure 02/08/2024 1:[address] [facility] Physical Therapy [address] [place] [address], [place] [address] Phu Mora [facility] Physical Therapy Start: 02-06-2024 End: 02-06-2024 Patient encounter procedure 02/06/2024 12:30 PM EDT Appointment [facility] Physical Therapy [address] [place] [phone] Dread Sunshine PTA [facility] Physical Therapy Start: 02-01-2024 End: 02-01-2024 Patient encounter procedure 02/01/2024 2:[address] [facility] Physical Therapy [address] [place] [address], [place] [address] Dread Sunshine PTA [facility] Physical Therapy Start: 01-30-2024 End: 01-30-2024 Patient encounter procedure 01/30/2024 2:30 PM EDT Appointment [facility] Physical Therapy [address] [place] [phone] [facility] Start: 01-25-2024 End: 01-25-2024 Patient encounter procedure 01/25/2024 2:[address] [facility] Physical Therapy [address] [place] [address] [facility] Physical [facility] Start: 01-23-2024 End: 01-23-2024 Patient encounter procedure 01/23/2024 2:[address] [facility] Physical Therapy [address] [place] [address] [phone] [facility] Start: 12-27-2023 End: 12-27-2023 Patient encounter procedure 12/27/2023 1:30 PM EDT Office Visit [facility] of [facility] [address] [place] [phone] Lucy Rocha PA-C [address] [place] [address] leg edema, had labs done [facility] Comment on above: leg edema, had labs done Start: 09-28-2023 End: 09-28-2023 Patient encounter procedure 09/28/2023 3:40 PM EST Office Visit [facility] [address] [place] [address] Vivian Oseguera, JOINTER MACHINE - YEAST WASHER [address] [place] [address] 6 month [facility] Comment on above: 6 month Start: 09-23-2023 Depression Monitoring Depression Monitoring [facility] Start: 09-23-2023 DTaP/Tdap/Td vaccine (1 - Tdap) DTaP/Tdap/Td vaccine (1 - Tdap) [facility] Comment on above: Postponed from 02/29/1992 (Patient Refus ed) Start: 09-21-2023 GFR test (Diabetes, CKD 3-4, OR last GFR 15-59) GFR test (Diabetes, CKD 3-4, OR last GFR 15-59) [facility] Start: 09-21-2023 Hemoglobin A1c measurement A1C test (Diabetic or Prediabetic) [facility] Start: 09-21-2023 Lipid panel Lipids [facility] Start: 09-21-2023 Urine screening for protein Diabetic Alb to Cr ratio (uACR) test [facility] Start: 06-22-2023 End: 06-22-2023 Patient encounter procedure 06/22/2023 8:40 AM EDT Office Visit [facility] [address] [place] [address] Vivian Oseguera, JOINTER MACHINE - YEAST WASHER [address] [place] [address] Hospital f/u-Pneumonia [facility] Comment on above: Hospital f/u-Pneumonia Start: 06-19-2023 Diabetic retinal exam Diabetic retinal exam [facility] Comment on above: Postponed from 10/17/2020 (Not Indicated ) Start: 06-19-2023 Glaucoma screening Diabetic retinal exam [facility] Comment on above: Postponed from 10/17/2020 (Not Indicated ) Start: 06-09-2023 Depression Monitoring Depression Monitoring [facility] Start: 06-09-2023 Influenza vaccination [facility] Comment on above: Postponed from 05/27/2022 (Patient Refus ed) Postponed from 04/26 (Patient Refused) Postponed from 04/26 (Patient Refused) Start: 05-20-2023 Shingles vaccine (2 of 2) Shingles vaccine (2 of 2) [facility] Start: 05-16-2023 End: 05-16-2023 Patient encounter procedure 05/16/2023 Office Visit Cardiology Nathan Ardon MD [address] [place] [address] [place] [phone] [facility] Start: 05-15-2023 Screening for malignant neoplasm of breast Breast cancer screen [facility] Start: 03-30-2023 End: 03-30-2023 Patient encounter procedure 03/30/2023 Office Visit Cardiology Nathan Ardon MD [address] [place] [phone] [facility] Start: 03-24-2023 End: 03-24-2023 Patient encounter procedure 03/24/2023 Office Visit Primary Care Vivian Oseguera, JOINTER MACHINE - YEAST WASHER [address] [place] [address] [facility] Start: 03-24-2023 COVID-19 Vaccine (#1) COVID-19 Vaccine (#1) [facility] Comment on above: Postponed from 1973 (Not Indicated ) Start: 03-24-2023 COVID-19 Vaccine (1) COVID-19 Vaccine (1) [employer] Comment on above: Postponed from 1978 (Not Indicated ) Start: 03-24-2023 Depression Monitoring Depression Monitoring [facility] [employer] Start: 03-24-2023 Diabetic foot examination Diabetic foot exam [facility] [employer] [facility] Comment on above: Postponed from 03/18/2022 (Patient Refus ed) Start: 03-24-2023 Hemoglobin A1c measurement A1C test (Diabetic or Prediabetic) [facility] [employer] Start: 03-24-2023 Hepatitis B vaccine (1 of 3 - Risk 3-dose series) Hepatitis B vaccine (1 of 3 - Risk 3-dose series) [facility] [employer] Comment on above: Postponed from 02/29/1992 (Patient Refus ed) Start: 03-24-2023 HIV screening HIV screen [facility] [employer] Comment on above: Postponed from 02/29/1988 (Patient Refus ed) Start: 03-24-2023 Pneumococcal 0-64 years Vaccine (2 - PCV) Pneumococcal 0-64 years Vaccine (2 - PCV) [facility] [employer] Comment on above: Postponed from 05/10/2019 (Not Indicated ) Start: 01-19-2023 End: 01-19-2023 Patient encounter procedure 01/19/2023 Appointment Sleep Center [facility] Start: 12-08-2022 End: 12-08-2022 Admission to same day surgery center [facility] Comment on above: COLORECTAL CANCER SCREENING, NOT HIGH RI SK Start: 12-08-2022 End: 12-08-2022 Colon ca scrn not hi rsk ind [employer] [facility] Start: 12-08-2022 Subsequent hospital visit by physician [facility] Start: 11-23-2022 End: 11-23-2022 Patient encounter procedure 11/23/2022 Appointment Sleep Center [facility] Start: 10-23-2022 Creatinine [facility] Start: 10-23-2022 [facility] Start: 10-23-2022 Potassium monitoring Potassium monitoring [employer] Start: 01-28-2023 Urine screening for protein Diabetic microalbuminuria test [facility] Start: 10-08-2022 End: 10-08-2022 Patient encounter procedure 10/08/2022 Appointment EKG [facility] EKG Start: 10-01-2022 Subsequent hospital visit by physician 10/01/2022 Hospital Encounter Stress Lab Canceled (Other) [facility] Stress Lab Comment on above: Canceled (Other) Start: 09-23-2022 End: 09-23-2022 Patient encounter procedure 09/23/2022 Office Visit Primary Care Vivian Oseguera, JOINTER MACHINE - YEAST WASHER [address] [place] [address] [facility] Start: 09-17-2022 DTaP/Tdap/Td vaccine (1 - Tdap) DTaP/Tdap/Td vaccine (1 - Tdap) [facility] Comment on above: Postponed from 02/29/1992 (Patient Refus ed) Start: 09-17-2022 Influenza vaccination Flu vaccine (#1) [facility] Comment on above: Postponed from 05/27/2021 (Patient Refus ed) Start: 09-10-2022 End: 09-10-2022 Patient encounter procedure 09/10/2022 Appointment Lab [facility] Covid Screening Start: 08-06-2022 End: 08-06-2022 Patient encounter procedure 08/06/2022 Appointment Physical Therapy Vineet Nam, [facility] Start: 07-23-2022 End: 07-23-2022 Patient encounter procedure 07/23/2022 Appointment Physical Therapy Vineet Nam, PT [facility] Physical Therapy Start: 07-22-2022 End: 07-22-2022 Patient encounter procedure 07/22/2022 Appointment Physical Therapy Mulu Mccray, AUTO INSPECTOR [facility] Physical Therapy Start: 07-21-2022 End: 07-21-2022 Patient encounter procedure 07/21/2022 Appointment Physical Therapy Karrie Beltran PTA [facility] Physical Therapy Start: 07-19-2022 End: 07-19-2022 Patient encounter procedure [facility] Start: 07-16-2022 End: 07-16-2022 Patient encounter procedure 07/16/2022 Appointment Physical Therapy Vineet Nam PT [facility] Start: 07-14-2022 End: 07-14-2022 Patient encounter procedure 07/14/2022 Appointment Physical Therapy Karrie Beltran PTA [facility] Start: 07-13-2022 End: 07-13-2022 Patient encounter procedure 07/13/2022 Appointment Physical Therapy Mulu Mccray PTA [facility] Start: 07-13-2022 Subsequent hospital visit by physician 07/13/2022 Hospital Encounter Physical Therapy Mulu Mccray PTA [facility] Start: 07-12-2022 End: 07-12-2022 Patient encounter procedure [facility] Start: 07-08-2022 End: 07-08-2022 Patient encounter procedure 07/08/2022 Appointment Physical Therapy Vineet Nam PT [facility] Start: 07-07-2022 End: 07-07-2022 Patient encounter procedure 07/07/2022 Appointment Physical Therapy Karrie Beltran PTA [facility] Start: 07-05-2022 End: 07-05-2022 Patient encounter procedure 07/05/2022 Appointment Physical Therapy Karrie Beltran PTA [facility] Start: 07-02-2022 End: 07-02-2022 Patient encounter procedure 07/02/2022 Appointment Physical Therapy Vineet Nam, PT [facility] Start: 06-30-2022 End: 06-30-2022 Patient encounter procedure 06/30/2022 Appointment Physical Therapy Karrie Beltran PTA [facility] Start: 06-28-2022 End: 06-28-2022 Patient encounter procedure 06/28/2022 Appointment Physical Therapy Karrie Beltran PTA [facility] Start: 06-24-2022 End: 06-24-2022 Patient encounter procedure 06/24/2022 Appointment Physical Therapy Vineet Nam PT [facility] Start: 06-21-2022 End: 06-21-2022 Patient encounter procedure 06/21/2022 Appointment Physical Therapy Génesis Hickman PTA [facility] Start: 06-21-2022 Subsequent hospital visit by physician 06/21/2022 Hospital Encounter Physical Therapy Génesis Hickman PTA [facility] Start: 06-18-2022 End: 06-18-2022 Patient encounter procedure 06/18/2022 Appointment Physical Therapy Karrie Beltran PTA [facility] Start: 06-16-2022 End: 06-16-2022 Patient encounter procedure 06/16/2022 Appointment Physical Therapy Karrie Beltran PTA [facility] Start: 06-14-2022 End: 06-14-2022 Patient encounter procedure 06/14/2022 Appointment Physical Therapy Karrie Beltran PTA [facility] Start: 06-11-2022 End: 06-11-2022 Patient encounter procedure 06/11/2022 Appointment Physical Therapy Vineet Nam PT [facility] Start: 06-09-2022 End: 06-09-2022 Patient encounter procedure 06/09/2022 Appointment Physical Therapy Karrie Beltran PTA [facility] Start: 06-07-2022 End: 06-07-2022 Patient encounter procedure 06/07/2022 Appointment Physical Therapy Karrie Beltran PTA [facility] Start: 06-04-2022 End: 06-04-2022 Patient encounter procedure 06/04/2022 Appointment Physical Therapy Karrie Beltran PTA [facility] Start: 06-02-2022 End: 06-02-2022 Patient encounter procedure 06/02/2022 Appointment Physical Therapy Karrie Beltran PTA [facility] Start: 06-02-2022 Subsequent hospital visit by physician 06/02/2022 Hospital Encounter Physical Therapy Karrie Beltran PTA [facility] Start: 05-28-2022 End: 05-28-2022 Patient encounter procedure 05/28/2022 Appointment Physical Therapy Vineet Nam PT [facility] Start: 05-27-2022 End: 05-27-2022 Patient encounter procedure 05/27/2022 Appointment Physical Therapy Vineet Nam PT [facility] Start: 05-27-2022 Influenza vaccination Flu vaccine (#1) [facility] Start: 05-27-2022 End: 05-27-2022 Nursing evaluation of patient and report 05/27/2022 Nurse Only General Surgery Binta Pearl I, DO [address] [place] [phone] [facility] Start: 05-25-2022 End: 05-25-2022 Patient encounter procedure 05/25/2022 Appointment Physical Therapy Nathan Garcia, PT [facility] Start: 05-19-2022 End: 05-19-2022 Patient encounter procedure 05/19/2022 Procedure visit General Surgery Binta Pearl Raleigh, DO [address] [place] [address] [facility] Start: 05-12-2022 End: 05-12-2022 Patient encounter procedure 05/12/2022 Office Visit General Surgery JohannBinta cole I, DO [address] [place] [phone] [facility] Start: 03-28-2022 Diabetic retinal exam Diabetic retinal exam [facility] Comment on above: Postponed from 10/17/2020 (Not Indicated ) Start: 03-18-2022 Diabetic foot examination Diabetic foot exam [facility] Start: 03-18-2022 Hepatitis B vaccine (1 of 3 - Risk 3-dose series) Hepatitis B vaccine (1 of 3 - Risk 3-dose series) [facility] Comment on above: Postponed from 02/29/1992 (Not Indicated ) Start: 03-18-2022 End: 03-18-2022 Patient encounter procedure 03/18/2022 Office Visit Primary Care Vivian Oseguera, JOINTER MACHINE - YEAST WASHER [address] [place] [address] [facility] [place] Start: 03-18-2022 Screening for malignant neoplasm of cervix Cervical cancer screen [employer] Work Phone: Comment on above: Postponed from 06/02/2020 (Not Indicated ) Start: 03-11-2022 Creatinine measurement Creatinine monitoring [employer] Work Phone: Start: 03-11-2022 Potassium monitoring Potassium monitoring [employer] Work Phone: Start: 02-09-2022 COVID-19 Vaccine (1) COVID-19 Vaccine (1) [facility] Comment on above: Postponed from 1985 (Patient Refus ed) Postponed from 02/28 (Patient Refused) Start: 02-09-2022 Hepatitis C screening Hepatitis C screen [facility] [employer] Phone: Comment on above: Postponed from 1973 (Patient Refus ed) Start: 02-04-2022 End: 02-04-2022 Patient encounter procedure [facility] Start: 01-21-2022 Hemoglobin A1c measurement A1C test (Diabetic or Prediabetic) [facility] Start: 10-15-2021 End: 10-15-2021 ambulatory 10/15/2021 Virtual Visit Gastroenterology Claudia Willett, JOINTER MACHINE - YEAST WASHER [address] [place] [address] [phone] [facility] Start: 09-17-2021 End: 09-17-2021 Patient encounter procedure 09/17/2021 Office Visit Primary Care Vivian Oseguera, JOINTER MACHINE - YEAST WASHER [address] [facility] [place] [place] [address] [phone] [facility] [place] Start: 09-16-2021 DTaP/Tdap/Td vaccine (1 - Tdap) DTaP/Tdap/Td vaccine (1 - Tdap) [facility], [place] Comment on above: Postponed from 02/29/1992 (Patient Refus ed) Start: 09-16-2021 HIV screening HIV screen [place], [place] Comment on above: Postponed from 02/29/1988 (Patient Refus ed) Start: 09-03-2021 End: 09-03-2021 Patient encounter procedure 09/03/2021 Office Visit Cardiology Nathan Ardon MD [address] [place] [address] [place] [phone] [facility] Start: 08-13-2021 HbA1c (Bld) [Mass fraction] A1C test (Diabetic or Prediabetic) [place], [place] Start: 08-13-2021 Hemoglobin A1c measurement A1C test (Diabetic or Prediabetic) [facility] [employer] Phone: Start: 08-13-2021 Lipid panel Lipid screen [place], [place] Start: 05-27-2021 Influenza vaccination Flu vaccine (#1) [facility] [employer] Phone: Start: 03-18-2021 End: 03-18-2021 Office Visit [facility] Start: 03-12-2021 Hepatitis B vaccine (1 of 3 - Risk 3-dose series) Hepatitis B vaccine (1 of 3 - Risk 3-dose series) [place] Comment on above: Postponed from 02/29/1992 (Not Indicated ) Start: 03-09-2021 End: 03-09-2021 Patient encounter procedure 03/09/2021 Office Visit Gastroenterology Leah Martins MD [address] [place] [address] [phone] [facility] Start: 03-04-2021 End: 03-04-2021 Patient encounter procedure 03/04/2021 Appointment Stress Lab [facility] Stress [facility] Start: 02-09-2021 End: 02-09-2021 Patient encounter procedure 02/09/2021 Office Visit Primary Care Vivian Oseguera, JOINTER MACHINE - YEAST WASHER [address] [place] [address] [phone] [facility] Start: 01-28-2021 End: 01-28-2021 Office Visit 01/28/2021 Office Visit Urology Evan Everett MD [address], [address] [place] [address] [facility] Start: 11-21-2020 Diabetic microalbuminuria test Diabetic microalbuminuria test [facility] Phone: Comment on above: Postponed from 09/25/2019 (Not Indicated ) Start: 10-18-2020 Creatinine measurement Creatinine monitoring [employer] [place] Start: 10-18-2020 Creatinine monitoring Creatinine monitoring [employer] Work Phone: Start: 10-18-2020 Potassium monitoring Potassium monitoring [employer] Phone: Start: 10-17-2020 Diabetic retinal exam Diabetic retinal exam [facility] [employer] Start: 10-17-2020 Glaucoma screening Diabetic retinal exam [facility] [employer] Start: 09-11-2020 End: 09-11-2020 Office Visit 09/11/2020 Office Visit Primary Care Might, Vivian W, JOINTER MACHINE - YEAST WASHER [address] [facility] [place] [place] [address] [phone] [facility] Start: 09-10-2020 DTaP/Tdap/Td vaccine (1 - Tdap) DTaP/Tdap/Td vaccine (1 - Tdap) [facility] Phone: Comment on above: Postponed from 02/29/1992 (Patient Refus ed) Postponed from 02/28 (Patient Refused) Start: 09-10-2020 HIV screen HIV screen [facility] Phone: Comment on above: Postponed from 02/29/1988 (Patient Refus ed) Start: 09-10-2020 HIV screening HIV screen [facility] [place] Comment on above: Postponed from 02/29/1988 (Patient Refus ed) Start: 07-20-2020 Creatinine monitoring Creatinine [facility] [place] Start: 07-20-2020 Potassium monitoring Potassium monitoring [facility] [place] Start: 06-11-2020 [object Object] Diabetic foot exam [facility] [place] Start: 06-11-2020 Diabetic foot examination Diabetic foot exam [facility] [place] Start: 06-04-2020 Creatinine monitoring Creatinine monitoring [facility] [place] Start: 06-04-2020 Lipid panel Lipid screen [facility] [place] Start: 06-04-2020 Lipid screen Lipid screen [facility] [place] Start: 06-04-2020 Potassium monitoring Potassium monitoring [facility] [place] Start: 06-02-2020 Cervical cancer screen Cervical cancer screen [place], [place] Start: 06-02-2020 Screening for malignant neoplasm of cervix [facility] Start: 05-27-2020 Influenza vaccination Flu vaccine (#1) [place] Start: 03-28-2020 HbA1c (Bld) [Mass fraction] A1C test (Diabetic or Prediabetic) [place] Start: 03-25-2020 Creatinine monitoring Creatinine monitoring [place], [place] Start: 03-25-2020 Potassium monitoring Potassium monitoring [place] Start: 03-12-2020 End: 03-12-2020 Office Visit [facility] Start: 02-29-2020 Diabetic retinal exam Diabetic retinal exam [place] Comment on above: Postponed from 01/02/2019 (Patient Refus ed) Start: 02-29-2020 Hepatitis B Vaccine (1 of 3 - Risk 3-dose series) Hepatitis B Vaccine (1 of 3 - Risk 3-dose series) [place], [place] Comment on above: Postponed from 02/29/1992 (Patient Refus ed) Start: 01-28-2020 End: 01-28-2020 Office Visit [facility] Start: 10-20-2019 A1C test (Diabetic or Prediabetic) A1C test (Diabetic or Prediabetic) [place] Start: 10-15-2019 End: 10-15-2019 Office Visit 10/15/2019 Office Visit Cardiology Nathan Ardon MD [address] [place] [address] [place] [phone] [facility] Start: 09-25-2019 Diabetic microalbuminuria test Diabetic microalbuminuria test [place] Start: 09-10-2019 End: 09-10-2019 Office Visit 09/10/2019 Office Visit Primary Care Vivian Oseguera, JOINTER MACHINE - YEAST WASHER [address] [place] [address] [facility] Start: 09-04-2019 End: 09-04-2019 Office Visit 09/04/2019 Office Visit Otolaryngology Hever Olivera PA [address] [place] [address] [phone] [facility] Start: 09-03-2019 A1C test (Diabetic or Prediabetic) A1C test (Diabetic or Prediabetic) [place] Start: 08-24-2019 DTaP/Tdap/Td vaccine (1 - Tdap) DTaP/Tdap/Td vaccine (1 - Tdap) [place] Comment on above: Postponed from 02/29/1992 (Patient Refus ed) Postponed from 02/28 (Patient Refused) Start: 08-24-2019 HIV screen HIV screen [place], [place] Comment on above: Postponed from 02/29/1988 (Patient Refus ed) Start: 08-22-2019 End: 08-22-2019 Appointment 08/22/2019 Appointment Radiology [facility] Nuclear Medicine Start: 08-21-2019 Lipid screen Lipid screen [place] Start: 08-16-2019 End: 08-16-2019 Appointment 08/16/2019 Appointment Radiology [facility] Nuclear Medicine Start: 08-03-2019 End: 08-03-2019 Appointment 08/03/2019 Appointment Radiology [facility] Ultrasound Start: 07-26-2019 End: 07-26-2019 Office Visit 07/26/2019 Office Visit Otolaryngology Hever Olivera, REJI [address] [place] [address] [phone] [facility] [facility] Start: 06-11-2019 End: 06-11-2019 Office Visit 06/11/2019 Office Visit Primary Care Vivian Oseguera, JOINTER MACHINE - YEAST WASHER [address] [place] [address] [phone] [facility] [place] Start: 05-31-2019 A1C test (Diabetic or Prediabetic) A1C test (Diabetic or Prediabetic) [place], [place] Start: 05-27-2019 Influenza vaccination Flu vaccine (#1) [place] Start: 05-10-2019 [object Object] Diabetic foot exam [place] Start: 05-10-2019 Pneumococcal 0-64 years Vaccine (2 - PCV) Pneumococcal 0-64 years Vaccine (2 - PCV) [facility] Start: 05-10-2019 Pneumococcal 0-64 years Vaccine (2 of 2 - PCV) Pneumococcal 0-64 years Vaccine (2 of 2 - PCV) [facility] Start: 2018 Screening for malignant neoplasm of colon [facility] Start: 2003 Screening for malignant neoplasm of cervix HPV (without or with Pap) [facility] Start: 02-29-1992 DTaP/Tdap/Td vaccine (1 - Tdap) DTaP/Tdap/Td vaccine (1 - Tdap) [facility] Start: 02-29-1992 Hepatitis B vaccine (1 of 3 - 19+ 3-dose series) Hepatitis B vaccine (1 of 3 - 19+ 3-dose series) [facility] Start: 1991 Urine screening for protein Diabetic Alb to Cr ratio (uACR) test [facility] Start: 1989 COVID-19 Vaccine (1) COVID-19 Vaccine (1) [facility] [employer] Phone: Start: 02-29-1988 HIV screening HIV screen [facility] Start: 1985 Depression Monitoring Depression Monitoring [facility] Start: 1973 Hepatitis C screening Hepatitis C screen [place], [place] End: 12-28-2019 AMINO ACID, QUANT AMINO ACID, QUANT Lab Routine Once for 1 Occurrences starting 12/28/2019 until 12/28/2019 [place] Comment on above: Once for 1 Occurrences starting 12/28/19 20 until 12/28/2019 AMINO ACID, QUANT AMINO ACID, QU ANT Lab Routine 12/28/2019 2:54 PM EDT [place] End: 03-11-2021 Anti-smooth muscle antibody Anti-smooth muscle antibody Lab Routine Abnormal LFTs 1 Occurrences starting 03/11/2021 until 03/11/2021 [facility] [employer] Phone: Comment on above: 1 Occurrences starting 03/11/2021 until 03/11/2021 End: 06-15-2023 Basic Metabolic Panel w/ Reflex to MG Basic Metabolic Panel w/ Reflex to MG Lab Routine Daily for 5 Days starting 06/11/2023 until 06/15/2023, 4 completed [facility] Comment on above: Daily for 5 Days starting 06/11/2023 unt il 06/15/2023, 4 completed Blood Culture 1 Blood Culture 1 Microbiology STAT 06/10/2023 11:30 PM EDT [facility] End: 03-03-2021 Cardiac stress test EKG study Type Echo stress test Echocardiography Routine Essential hypertension Chest discomfort Hyperlipidemia, unspecified hyperlipidemia type Tobacco abuse 1 Occurrences starting 03/03/2021 until 03/03/2021 [facility] Phone: Comment on above: 1 Occurrences starting 03/03/2021 until 03/03/2021 End: 12-28-2019 Carnitine Carnitine Lab Routine Once for 1 Occurrences starting 12/28/2019 until 12/28/2019 [facility] [place] [place] Comment on above: Once for 1 Occurrences starting 12/28/19 until 12/28/2019 Carnitine Carnitine Lab Ro utine 12/28/2019 2:54 PM EDT [facility] [place] End: 06-15-2023 CBC W Auto Differential panel - Blood CBC auto differential Lab Routine Daily for 5 Days starting 06/11/2023 until 06/15/2023, 4 completed [facility] Comment on above: Daily for 5 Days starting 06/11/2023 unt il 06/15/2023, 4 completed End: 10-08-2022 Continuous cardiac monitoring, >2 up to 14 days Continuous cardiac monitoring, >2 up to 14 days Cardiac Services Routine Syncope and collapse Preop cardiovascular exam Dizziness Primary hypertension Mixed hyperlipidemia Tobacco abuse counseling 1 Occurrences starting 10/08/2022 until 10/08/2022 [employer] Work Phone: Comment on above: 1 Occurrences starting 10/08/2022 until 10/08/2022 Continuous pulse oximetry Pulse oximetry, continuous Respiratory Care Routine Every 4hr until discontinued starting 06/11/2023 [employer] Comment on above: Every 4hr until discontinued starting End: 09-30-2020 COVID-19 COVID-19 Lab Routine Preoperative testing 1 Occurrences starting 09/30/2020 until 09/30/2020 [place] Comment on above: 1 Occurrences starting 09/30/2020 until 09/30/2020 COVID-19 COVID-19 Lab Rou [place] Preoperative testing 09/30/2020 1:20 PM EST [place] End: 11-26-2021 COVID-19 [facility] [employer] Work Phone: Comment on above: Once for 1 Occurrences starting 11/27/19 until 11/26/2021 End: 04-09-2022 [facility]19 [facility]: Comment on above: Once for 1 Occurrences starting 04/09/20 until 04/09/2022 End: 09-03-2022 COVID-[address] [place], [place] [address] Phone: Comment on above: Once for 1 Occurrences starting 09/03/20 until 09/03/2022 End: 09-10-2022 COVID-19 [facility] [employer] Work Phone: Comment on above: Once for 1 Occurrences starting 09/10/20 until 09/10/2022 End: 07-08-2020 Covid-19 Ambulatory Covid-19 Ambulatory Lab Routine Once for 1 Occurrences starting 07/08/2020 until 07/08/2020 [place] Comment on above: Once for 1 Occurrences starting 07/08/20 20 until 07/08/2020 Covid-19 Ambulatory Covid-19 Amb ulatory Lab Routine 07/08/2020 1:06 PM EDT [place], [place] End: 07-02-2024 CT Sinuses W contrast IV CT SINUS W CONTRAST Imaging Routine Recurrent pansinusitis 1 Occurrences starting 07/02/2024 until 07/02/2024 [facility] Comment on above: 1 Occurrences starting 07/02/2024 until 07/02/2024 Culture, Blood 2 Culture, Blood 2 Microbiology STAT 06/10/2023 11:40 PM EDT [facility] End: 01-28-2021 Culture, Urine Culture, Urine Microbiology Routine Renal stones Renal colic 1 Occurrences starting 01/28/2021 until 01/28/2021 [facility] [employer] Work Phone: Comment on above: 1 Occurrences starting 01/28/2021 until 01/28/2021 Culture, Urine Culture, Urine Microbiology Routine Renal stones Renal colic 01/28/2021 11:00 AM EDT [facility] Work Phone: EKG 12 Lead EKG 12 Lead ECG Routine 08/06/2022 2:34 PM EST [employer] Work Phone: EKG 12 Lead EKG 12 Lead ECG STAT 08/06/2022 5:11 PM EST [employer] Work Phone: End: 12-28-2019 Factor 8 Assay Factor 8 Assay Lab Routine Once for 1 Occurrences starting 12/28/2019 until 12/28/2019 [facility] Comment on above: Once for 1 Occurrences starting 12/28/19 20 until 12/28/2019 Factor 8 Assay Factor 8 Assay L ab Routine 12/28/2019 2:54 [facility] [place] End: 12-28-2019 Fibrinogen Fibrinogen Lab Routine Once for 1 Occurrences starting 12/28/2019 until 12/28/2019 [place] Comment on above: Once for 1 Occurrences starting 12/28/19 20 until 12/28/2019 Fibrinogen Fibrinogen Lab R outine 12/28/2019 2:54 PM [facility] [place] End: 12-08-2022 Glucose [Mass/volume] in Serum or Plasma POCT Glucose Point of Care Testing STAT One Time for 1 Occurrences starting 12/08/2022 until 12/08/2022 [facility] Comment on above: One Time for 1 Occurrences starting 11/24 until 12/08/2022 Glucose [Mass/volume ] in Serum or Plasma POCT Glucose Point of Care Testing STAT As Needed until discontinued starting 06/11/2023 [facility] Comment on above: As Needed until discontinued starting Glucose [Mass/volume ] in Serum or Plasma [facility] Comment on above: As Needed until discontinued starting 4X Daily (AC & HS) u ntil discontinued starting 06/11/2023 End: 08-13-2020 HbA1c (Bld) [Mass fraction] Hemoglobin A1C Lab Routine Once for 1 Occurrences starting 08/13/2020 until 08/13/2020 [employer] Comment on above: Once for 1 Occurrences starting 08/13/20 20 until 08/13/2020 HbA1c (Bld) [Mass fraction] Hemoglobin A1C Lab Routine 08/13/2020 11:47 AM EST [facility] End: 09-21-2022 Hemoglobin A1c/Hemoglobin.total in Blood [employer] Work Phone: Comment on above: 1 Occurrences starting 09/21/2022 until 09/21/2022 End: 06-08-2024 Hemoglobin A1c/Hemoglobin.total in Blood [facility] Comment on above: Once for 1 Occurrences starting 06/08/20 24 until 06/08/2024 End: 03-11-2021 Hepatitis A Antibody, Total Hepatitis A Antibody, Total Lab Routine Abnormal LFTs 1 Occurrences starting 03/11/2021 until 03/11/2021 [facility] Phone: Comment on above: 1 Occurrences starting 03/11/2021 until 03/11/2021 Hepatitis A Antibody , Total Hepatitis A Antibody, Total Lab Routine Abnormal LFTs 03/11/2021 12:57 PM EDT [facility] Phone: End: 03-11-2021 Hepatitis B surface antibody Hepatitis B surface antibody Lab Routine Abnormal LFTs 1 Occurrences starting 03/11/2021 until 03/11/2021 [facility] Phone: Comment on above: 1 Occurrences starting 03/11/2021 until 03/11/2021 Home BIPAP or CPAP Home BIPAP or CPAP Respiratory Care Routine QHS until discontinued starting 06/11/2023 [facility] Comment on above: QHS until discontinued starting 06/11/20 End: 11-23-2022 Home sleep study Home sleep study Sleep Center Routine Tired Fatigue, unspecified type LAYNE (obstructive sleep apnea) 1 Occurrences starting 11/23/2022 until 11/23/2022 [employer] Phone: Comment on above: 1 Occurrences starting 11/23/2022 until 11/23/2022 End: 03-11-2021 Immunoglobulins, Quantitative Immunoglobulins, Quantitative Lab Routine Abnormal LFTs 1 Occurrences starting 03/11/2021 until 03/11/2021 [facility] Phone: Comment on above: 1 Occurrences starting 03/11/2021 until 03/11/2021 Immunoglobulins, Quantitative Immunoglobulins, Quantitative Lab Routine Abnormal LFTs 03/11/2021 12:57 PM EDT [facility] Phone: End: 12-28-2019 MISCELLANEOUS TESTING MISCELLANEOUS TESTING Lab Routine Once for 1 Occurrences starting 12/28/2019 until 12/28/2019 [facility] Comment on above: Once for 1 Occurrences starting 12/28/19 until 12/28/2019 MISCELLANEOUS TESTING MISCELLANE OUS TESTING Lab Routine 12/28/2019 4:12 PM EDT [facility] [place] End: 03-11-2021 MITOCHONDRIAL ANTIBODIES, M2, IGG MITOCHONDRIAL ANTIBODIES, M2, IGG Lab Routine Once for 1 Occurrences starting 03/11/2021 until 03/11/2021 [facility] Phone: Comment on above: Once for 1 Occurrences starting 03/11/20 until 03/11/2021 MITOCHONDRIAL ANTIBO DIES, M2, IGG MITOCHONDRIAL ANTIBODIES, M2, IGG Lab Routine 03/11/2021 12:57 PM EDT [facility] Phone: End: 03-11-2021 MITOCHONDRIAL ANTIBODY W/REFLEX TITER MITOCHONDRIAL ANTIBODY W/REFLEX TITER Lab Routine Abnormal LFTs 1 Occurrences starting 03/11/2021 until 03/11/2021 [facility] Phone: Comment on above: 1 Occurrences starting 03/11/2021 until 03/11/2021 Nasal Cannula Oxygen Nasal Cannu la Oxygen Respiratory Care Routine Daily until discontinued starting 06/11/2023 KEAGAN MORSE [employer] Comment on above: Daily until discontinued starting 2022 End: 08-16-2019 NM GASTRIC EMPTYING NM GASTRIC EMPTYING Imaging Routine Generalized abdominal pain 1 Occurrences starting 08/16/2019 until 08/16/2019 [facility] [place] Comment on above: 1 Occurrences starting 08/16/2019 until 08/16/2019 End: 03-11-2021 Nuclear Ab [Titer] in Serum by Immunofluorescence LIZANDRO Lab Routine Abnormal LFTs 1 Occurrences starting 03/11/2021 until 03/11/2021 [facility] Phone: Comment on above: 1 Occurrences starting 03/11/2021 until 03/11/2021 Nuclear Ab [Titer] i n Serum by Immunofluorescence LIZANDRO Lab Routine Abnormal LFTs 03/11/2021 12:57 PM EDT [facility] Phone: Oxygen therapy [Mini [facility] Data Set] Initiate Oxygen Therapy Protocol Respiratory Care Routine As Needed until discontinued starting 06/11/2023 [facility] Comment on above: As Needed until discontinued starting Positive Expiratory Pressure Therapy [facility] Comment on above: 4X Daily until discontinued starting As Needed until disc ontinued starting 06/11/2023 End: 01-19-2023 Sleep study with PAP titration Sleep study with PAP titration Sleep Center Routine LAYNE (obstructive sleep apnea) 1 Occurrences starting 01/19/2023 until 01/19/2023 [facility] Phone: Comment on above: 1 Occurrences starting 01/19/2023 until 01/19/2023 End: 03-11-2021 Smooth Muscle Antibody Quant Smooth Muscle Antibody Quant Lab Routine Once for 1 Occurrences starting 03/11/2021 until 03/11/2021 [facility] Phone: Comment on above: Once for 1 Occurrences starting 03/11/20 21 until 03/11/2021 Smooth Muscle Antibo dy Quant Smooth Muscle Antibody Quant Lab Routine 03/11/2021 12:57 PM EDT [facility] Phone: End: 07-19-2022 Smooth Muscle Antibody Quant [facility] Phone: Comment on above: 1 Occurrences starting 07/19/2022 until 07/19/2022 Surgical Pathology Surgical Path ology Lab Routine Screening for colon cancer Release Upon Ordering for 1 Occurrences starting 12/08/2022 [facility] Phone: Comment on above: Release Upon Ordering for 1 Occurrences starting 12/08/2022 Vibratory Airway Clearance [facility] Comment on above: As Needed until discontinued starting TID until discontinu ed starting 06/11/2023 Immunizations Immunization Date Immunization Notes Care Provider Lawanda downing 03-25-2023 zoster vaccine recombinant Emiliano [facility] 03-24-2023 zoster recombinant adjuvanted vaccine (SHINGRIX) 50 MCG/0.5ML SUSR injection Emiliano Segundo MD [facility] 07-25-2020 influenza, injectabl e, quadrivalent, contains preservative Mth Room [facility] 06-11-2019 influenza, injectabl e, quadrivalent, preservative free Vivian [facility] 08-24-2018 influenza, injectabl e, quadrivalent, preservative free Vivian [place] 05-10-2018 pneumococcal polysac charide vaccine, 23 valent Vivian [facility] 07-09-2015 influenza virus vacc ine, unspecified formulation Vivian [facility] 07-04-2013 influenza virus vacc ine, unspecified [facility]-2009 novel influenza-H1N1 -09, preservative-free, injectable Vivian [place] Payers Date Payer Category Payer Unknown [id number] 2022 Self-pay [id number] 2022 Unknown 2021 Unknown BCBS [place] - [place] P PO [id number] 2021-Present [phone] [address] [place] [address] [id number] 2020 Private Health Insurance [id number] .[id number] 2017 Unknown [employer] M [employer] [address] xxxxxxxxxxxx 2017-Present [phone] [address] [place] [address] xxxxxxxxxxxx [id number] .[id number] 1973 Unknown [id number] 2.16.840.1.152933.3.579.2 .182 1973 Unknown [id number] 2.16.840.1.348355.3.579.2 .593 1973 Unknown [id number] 2.16.840.1.714269.3.579.2 .593 1973 Unknown [id number] 2.16.840.1.981922.3.579.2 .593 1973 Unknown [id number] 2.16.840.1.248624.3.579.2 .593 1973 Unknown [id number] 2.16.840.1.244794.3.579.2 .593 1973 Unknown [id number] 2.16.840.1.210603.3.579.2 .593 1973 Unknown [id number] 2.16.840.1.671022.3.579.2 .593 1973 Unknown [id number] 2.16.840.1.038331.3.579.2 .593 1973 Unknown [id number] 2.16.840.1.343885.3.579.2 .593 1973 Unknown [id number] 2.16.840.1.479696.3.579.2 .593 1973 Unknown [id number] 2.16.840.1.634759.3.579.2 .593 1973 Unknown [id number] 2.16.840.1.947971.3.579.2 .593 1973 Unknown [id number] 2.16.840.1.386641.3.579.2 .593 1973 Unknown [id number] 2.16.840.1.921788.3.579.2 .593 1973 Unknown [id number] 2.16.840.1.036467.3.579.2 .593 1973 Unknown [id number] 2.16.840.1.873866.3.579.2 .593 1973 Unknown [id number] 2.16.840.1.393478.3.579.2 .196 1973 Unknown [id number] 2.16.840.1.360695.3.579.2 .196 1973 Unknown [id number] 2.16.840.1.973579.3.579.2 .196 1973 Unknown [id number] 2.16.840.1.104931.3.579.2 .196 1973 Unknown [id number] 2.16.840.1.857321.3.579.2 .196 1973 Unknown [id number] 2.16.840.1.401993.3.579.2 .196 1973 Unknown [id number] 2.16.840.1.637319.3.579.2 .196 1973 Unknown [id number] 2.16.840.1.316815.3.579.2 .196 1973 Unknown [id number] 2.16.840.1.573519.3.579.2 .196 1973 Unknown [id number] 2.16.840.1.104344.3.579.2 .196 1973 Unknown [id number] 2.16.840.1.804291.3.579.2 .173 1973 Unknown [id number] 2.16.840.1.777613.3.579.2 .173 1973 Unknown [id number] 2.16.840.1.859925.3.579.2 .173 1973 Unknown [id number] 2.16.840.1.527231.3.579.2 .173 1973 Unknown [id number] 2.16.840.1.710689.3.579.2 .173 1973 Unknown [id number] 2.16.840.1.753998.3.579.2 .173 1973 Unknown [id number] 2.16.840.1.731570.3.579.2 .173 1973 Unknown [id number] 2.16.840.1.576860.3.579.2 .173 1973 Unknown [id number] 2.16.840.1.080690.3.579.2 .1973 Unknown [id number] 2.16.840.1.042178.3.579.2 .1973 Unknown [id number] 2.16.840.1.409296.3.579.2 .1973 Unknown [id number] 2.16.840.1.506406.3.579.2 .173 1973 Unknown [id number] 2.16.840.1.871007.3.579.2 .1973 Unknown [id number] 2.16.840.1.087660.3.579.2 .173 1973 Unknown [id number] 2.16.840.1.844116.3.579.2 .173 1973 Unknown [id number] 2.16.840.1.471813.3.579.2 .173 1973 Unknown [id number] 2.16.840.1.002856.3.579.2 .1973 Unknown [id number] 2.16.840.1.959002.3.579.2 .173 1973 Unknown [id number] 2.16.840.1.787322.3.579.2 .1973 Unknown [id number] 2.16.840.1.676056.3.579.2 .173 1973 Unknown [id number] 2.16.840.1.575004.3.579.2 .173 1973 Unknown [id number] 2.16.840.1.329349.3.579.2 .1973 Unknown [id number] 2.16.840.1.354985.3.579.2 .173 1973 Unknown [id number] 2.16.840.1.532368.3.579.2 .173 1973 Unknown [id number] 2.16.840.1.202495.3.579.2 .1973 Unknown [id number] 2.16.840.1.244312.3.579.2 .1973 Unknown [id number] 2.16.840.1.954808.3.579.2 .1973 Unknown [id number] 2.16.840.1.108264.3.579.2 .1973 Unknown [id number] 2.16.840.1.578626.3.579.2 .1973 Unknown [id number] 2.16.840.1.867961.3.579.2 .173 1973 Unknown [id number] 2.16.840.1.869513.3.579.2 .173 1973 Unknown [id number] 2.16.840.1.482390.3.579.2 .173 1973 Unknown [id number] 2.16.840.1.148911.3.579.2 .1973 Unknown [id number] 2.16.840.1.845740.3.579.2 .1973 Unknown [id number] 2.16.840.1.313193.3.579.2 .1973 Unknown [id number] 2.16.840.1.012433.3.579.2 .173 1973 Unknown [id number] 2.16.840.1.398388.3.579.2 .173 1973 Unknown [id number] 2.16.840.1.681771.3.579.2 .173 1973 Unknown [id number] 2.16.840.1.530345.3.579.2 .173 1973 Unknown [id number] 2.16.840.1.128531.3.579.2 .173 1973 Unknown [id number] 2.16.840.1.584661.3.579.2 .173 1973 Unknown [id number] 2.16.840.1.838829.3.579.2 .173 1973 Unknown [id number] 2.16.840.1.504102.3.579.2 .173 1959 Unknown [id number] Unknown [id number] 2.16.840.1.919493.3.579.2 .531 Unknown [id number] 2.16.840.1.786846.3.579.2 .531 Unknown [id number] 2.16.840.1.460227.3.579.2 .531 Unknown [id number] 2.16.840.1.611246.3.579.2 .531 Social History Date Type Detail Facility Start: 07-13-2019 End: 09-28-2023 Tobacco smoking status IDIS Current every day smoker [facility] History of tobacco use Cigarette Smoker [place] Start: 07-13-2019 End: 06-11-2023 Cigarettes smoked current (pack per day) - Reported [facility] Start: 07-13-2019 End: 06-11-2023 Alcohol intake No [facility] Start: 1975 Sex Assigned At Not on file [place], [place] Start: 07-26-2019 End: 06-11-2024 Alcohol intake Current non-drinker of alcohol (finding) [facility] Start: 06-24-2020 End: 09-28-2023 Tobacco use and exposure Never used [facility] Start: 07-27-2022 End: 12-08-2022 Exposure to SARS-CoV-2 (event) Not sure Janette Jingdong [facility] Start: 03-18-2021 History 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 Never BON wedgies How many standard drinks containing alcohol do you have on a typical day? Patient does not drink [facility] (I/We) worried wheth er (my/our) food would run out before (I/we) got money to buy more. DK or Refused [facility] Medical Equipment Procedure Code Equipment Code Equipment Origin al Text Equipment Identifier Dates 1 each by Does n ot apply route 5 times daily [id number] Start: 2019 Clinical Notes 12-04-2020 to 06-12-2024 Phu Mora - 04/23/2024 1:15 PM Génesis Marroquin, AUTO INSPECTOR - 04/12/2024 1:00 PM Lary Marquez PTA - 03/01/2024 12:45 PM EDTDischarge InstructionsAttachmentsDischarge Instructions Note Date & Type Note Facility 06-12-2024 Note This is a Telehealth Appointment *This [...] This telemedicine visit was conducted due to: schedule conflict History of Present Illness 49-year-old female here for follow-up for DM 2. Patient was diagnosed in 2001 with type 2 diabetes. Treatment is complicated by gastroparesis for which she follows with a GI specialist in [place]. Due to this has not tolerated several diabetic medications including GLP-1 agonists and metformin. Last visit 03/06/2024 at which time no medication adjustments were made. Since last visit patient reports she continues to utilize freestyle kena to monitor blood glucose levels several times per day and over the last 14 days her average glucose is 225 with glucose management indicator of 8.7%. Patient's in range 29% of time with rest of readings above goal. Patient notes shes been dealing with worsened fibromyalgia lately and notes elevated glucose levels during this with pain. A1c prior to todays visit 8.7 Diet: Generalized diet. Continues to eat 1 meal per day due to gastroparesis Exercise: Limited, no regular routine Dilated eye exam: > 1 yr Podiatry visit: yes Diabetic kidney disease: No Retinopathy: No Neuropathy: Yes using gabapentin 600 mg 3 times a day Brought glucometer to visit: Yes freestyle kena checking several times per day Hypoglycemic episodes: No Hyperglycemic episodes: Yes Current treatment: Breakfast: U500 110u + Humalog sliding Scale Lunch: Humalog sliding Scale Dinner: U500 105u + Humalog sliding Scale Bedtime: Humalog Sliding scale Blood sugar 150-200 2u Blood sugar 201-250 4u Blood sugar 251-300 6u Blood sugar 301-350 8u Blood sugar 351-400 10u Blood sugar >400 12u Recent labs: A1c 8.7 (06/08/2024) 7.6 (03/05/2024) 7.5 (11/21/2023) 9.2 (08/03/2023) 7.8 (08/25/2022) 9 (05/19/22) 9.8 (10/23/2021) 8.3 (06/05/2021) 10.8 (12/28/2019) Weight (kg): 98.6 (06/12/2024) 95.5 (03/06/2024) 93.6 (11/22/2023) 92.3 (08/23/2023) 95.6 (08/25/2022) 95.2 (05/19/22) 86 (10/27/2021) 86.1 (06/05/2021) 84.1 (08/13/20) BMI: 36.2 (06/12/2024) 35.1 (03/06/2024) 34.4 (11/22/2023) 33.9 (08/23/2023) 35.1 (08/25/2022) 35 (05/19/22) 31.5 (10/27/2021) 31.6 (06/05/2021) 08/03/2023 Creatinine 0.7 GFR >60 AST 27, ALT 33 cholesterol 334, HDL 17, LDL not calculated due to elevated triglycerides, triglycerides 2187 TSH 0.46Urine microalbumin/creatinine ratio <30 Physical Exam Height 165 cm, weight 98.6 kg, BMI 36.2, blood pressure 128/62 No physical exam completed Additional Vitals No qualifying data available. Assessment/Plan Assessment: DM 2: Blood sugar readings continue to run above goal. Will add pioglitazone as well as Jardiance with hopes of reducing insulin needs long-term. Encourage patient to call her readings the office intermittently for review and continue to monitor several times per day with kena. Follow-up with myself in 3 months or sooner as needed. Continue to improve diet and activity as able. Reminded patient to complete dilated eye exam Plan: See PI Discussed goals of treatment [...] extremities -To lower BS and A1c: Breakfast: Add pioglitazone 30 mg + add Jardiance 10 mg + U500 110u + Humalog sliding Scale Lunch: Humalog sliding Scale Dinner: U500 115u + Humalog sliding Scale Bedtime: Humalog Sliding [...] repeat rule of 15's. -Continue to eat 6020-1431 calories per day. Best to consume calories divided into 3 meals per day. Avoid all sugared pop and other sweet drinks. Eat less sweet, white, and fast foods. -Continue to exercise as frequently as possible. Recommend at least 10,000 steps per day. When possible engage in moderate to inten (more content not included)... [facility] 04-23-2024 History of Present illness Narrative [facility] Outpatient Physical Therapy Daily Note Patient: Risa Warner : 1975 CSN #: [id number] Referring Physician: No ref. provider found Date: 04/23/2024 Diagnosis: M79.7 fibromyalgia; L shoulder pain, M25.512 Treatment Diagnosis: chronic low back pain; L shoulder pain Onset Date: 12/08/23 PT Insurance Information: [employer] [place] Total # of Visits Approved: 24 Per Physician Order Total # of Visits to Date: 15 No Show: 0 Canceled Appointment: 2 05/11/24 Plan of Care/Recert Due Pre-Treatment Pain: 5/10 Subjective: Pt states pain is a little better -5/10 . Pt continues with pain posterior shld. Exercises: Exercise 4: Bike 10 min L1 Exercise 5: seated ball roll outs 10x frow, 10x s/s Exercise 6: seated thoracic extension with roll 10-15x Exercise 7: cervical yes/no's 15x; L upper trap and scalenes stretch [id number] Exercise 8: Corner pec stretch [id number] Exercise 9: UBE -4/4 Exercise 10: pulleys 6min Exercise 11: cane exercises flexion, ER 2 x 10 Exercise 12: pendulums CW,CCW 1 minute ea Exercise 13: Posterior capsule stretch 5x Exercise 14: Table wash cw/ccw/f/b Modality: Modality Flow Sheet: Performed (X) Tx Modality x Electrical Stim: x Hot Pack: LB x Cold Pack: L shld Assessment Assessment: Pain is a little better in L shld. Pain posterior shld. Progressed exercise to increase ROM and strength. Flexion remains limited to 135-deg. Contiuue to review stretching and scapular exercise for home use Activity Tolerance Activity Tolerance: Patient tolerated treatment well Patient Education Patient Education: HEP Pt verbalized/demonstrated good understanding: [x] Yes [] No, pt required further clarification. Post Treatment Pain: 5/10 Plan Plan Frequency: 2x/wk Plan weeks: 6 weeks Goals (Total # of Visits to Date: 15) Short Term Goals Time Frame for Short Term Goals: 2 weeks Short Term Goal 1: Pt will be educated on her POC and HEP-met Short Term Goal 2: Pt will initiate core exercises with good tolerance inorder to improve posture--met Short Term Goal 3: Added 03/30: Patient to be instructed in scapular strengthening and ROM exercises to improve L shoulder mobility.-progressing Delicatessen Goods Stock Clerk Goals Time Frame for Delicatessen Goods Stock Clerk Goals : 4 weeks Delicatessen Goods Stock Clerk Goal 1: Pt will be safe and independent with her HEP [employer]ic[employer]essen Goods Stock Clerk Goal 2: Pt will increase lumbar AROM to WFL in order to reduce low back pain [employer]essen Goods Stock Clerk Goal 4: Pt will report 25% improvement in symptoms in order to improve quality of life Shelter Goal 5: Added 03/30: Patient to have improved L shoulder AROM equal to R shoulder ROM all planes with no increase in pain for improved functional mobility. terminal supervisor goal 6: Added 03/30: Patient to have improved L shoulder strength >/=4/5 grossly all planes for improved stability. Minutes Tracking: Time In: 1315 Time Out: 1417 Minutes: 62 Phu Welsh Date: 04/23/2024 documented in this encounter [facility] 04-12-2024 History of Present illness Narrative [facility] Outpatient Physical Therapy Daily Note Patient: Risa Warner : 1975 CSN #: [id number] Referring Physician: No ref. provider found Date: 04/12/2024 Treatment Diagnosis: chronic low back pain; L shoulder pain Onset Date: 12/08/23 PT Insurance Information: [employer] [place] Total # of Visits Approved: 24 Per Physician Order Total # of Visits to Date: 13 No Show: 0 Canceled Appointment: 2 05/11/24 Plan of Care/Recert Due Pre-Treatment Pain: 04/04 Subjective: PT. reports pain 04/04 this date and feels a little better than yesterday. Exercises: Exercise 1: HEP LTR, PPT, seated/standing extension Exercise 6: seated thoracic extension with roll 10-15x Exercise 7: cervical yes/no's 15x; L upper trap and scalenes stretch [id number] Exercise 8: Corner pec stretch [id number] Exercise 9: Supine PPT/ Bridge/ supine clam 15x Exercise 10: pulleys 6min Modality: Modality Flow Sheet: Performed (X) Tx Modality x Electrical Stim: IFC to L shoulder for decreased pain and swelling. Ultrasound: ___ W/cm2 x ___ mins Duty factor: __100% __50% __20% __10% Head size: 10 mm Other: MHz: __1mHz __2 mHz __3mHz Location: x Hot Pack:mid/LB for decreased pain and tightness x Cold Pack: L shoulder for decreased pain Assessment Assessment: PT. tolerated treatment fair. Pt. does not report increased pain with exercises but does have noted facial grimice. Continued with progression of exercises for shoulder strength and ROM. Will progress per pt. tolerance. Activity Tolerance Activity Tolerance: Patient tolerated treatment well Patient Education Patient Education: HEP Pt verbalized/demonstrated good understanding: [x] Yes [] No, pt required further clarification. Post Treatment Pain: 03/05 Plan Plan Frequency: 2x/wk Plan weeks: 6 weeks Goals (Total # of Visits to Date: 13) Short Term Goals Time Frame for Short Term Goals: 2 weeks Short Term Goal 1: Pt will be educated on her POC and HEP-met Short Term Goal 2: Pt will initiate core exercises with good tolerance inorder to improve posture--met Short Term Goal 3: Added 03/30: Patient to be instructed in scapular strengthening and ROM exercises to improve L shoulder mobility.-progressing Delic[employer]essen Goods Stock Clerk Goals Time Frame for Shelter Goals : 4 weeks Del[employer]essen Goods Stock Clerk Goal 1: Pt will be safe and independent with her HEP Delic[employer]essen Goods Stock Clerk Goal 2: Pt will increase lumbar AROM to WFL in order to reduce low back pain [employer] Stock Clerk Goal 3: Pt will increase BLE strength to >/=4/5 and core strength to Good in order to increase ambulation tolerance Delicatessen Goods Stock Clerk Goal 4: Pt will report 25% improvement in symptoms in order to improve quality of life Shelter Goal 5: Added 03/30: Patient to have improved L shoulder AROM equal to R shoulder ROM all planes with no increase in pain for improved functional mobility. terminal supervisor goal 6: Added 03/30: Patient to have improved L shoulder strength >/=4/5 grossly all planes for improved stability. Minutes Tracking: Time In: 1300 Time Out: 1347 Minutes: 47 Génesis Hickman, MILAGROS Date: 04/12/2024 documented in this encounter [facility] 03-06-2024 Note This is a Telehealth Appointment *This [...] This telemedicine visit was conducted due to: schedule conflict_ History of Present Illness 49-year-old female here for follow-up for DM 2. Patient was diagnosed in 2001 with type 2 diabetes. Treatment is complicated by gastroparesis for which she follows with a GI specialist in [place]. Due to this has not tolerated several diabetic medications including GLP-1 agonists and metformin. Last visit 11/22/2023 at which time reduced U500 doses. Since last visit patient reports continues to utilize freestyle kena 2 to monitor blood glucose levels several times per day and over the last 14 days her average glucose is 171 gluclose management indicator of 7.4%. Time in range breakdown shows patient low 1% of the time in target range 54% of the time high 35% of the time very high 10% of the time. The largest elevations tend to occur in the late evening shipping manager time 11pm - 4 to 5 AM. Patient completed A1c at [facility] yesterday and notes result was 7.6% Diet: Generalized diet. Continues to eat 1 meal per day due to gastroparesis Exercise: Limited, no regular routine Dilated eye exam: > 1 yr Podiatry visit: No Diabetic kidney disease: No Retinopathy: No Neuropathy: Yes using gabapentin 600 mg 3 times a day Brought glucometer to visit: Yes jamar escudero checking several times per day Hypoglycemic episodes: No Hyperglycemic episodes: Yes Current treatment: Breakfast: U500 110u + Humalog sliding Scale Lunch: Humalog sliding Scale Dinner: U500 105u + Humalog sliding Scale Bedtime: Humalog Sliding scale Blood sugar 150-200 2u Blood sugar 201-250 4u Blood sugar 251-300 6u Blood sugar 301-350 8u Blood sugar 351-400 10u Blood sugar >400 12u Recent labs: A1c 7.6 (03/05/2024) 7.5 (11/21/2023) 9.2 (08/03/2023) 7.8 (08/25/2022) 9 (05/19/22) 9.8 (10/23/2021) 8.3 (06/05/2021) 10.8 (12/28/2019) Weight (kg): 95.5 (03/06/2024) 93.6 (11/22/2023) 92.3 (08/23/2023) 95.6 (08/25/2022) 95.2 (05/19/22) 86 (10/27/2021) 86.1 (06/05/2021) 84.1 (08/13/20) BMI: 35.1 (03/06/2024) 34.4 (11/22/2023) 33.9 (08/23/2023) 35.1 (08/25/2022) 35 (05/19/22) 31.5 (10/27/2021) 31.6 (06/05/2021) 08/03/2023 Creatinine 0.7 GFR >60 AST 27, ALT 33 cholesterol 334, HDL 17, LDL not calculated due to elevated triglycerides, triglycerides 2187 TSH 0.46 Urine microalbumin/creatinine ratio <30 Physical Exam No PE I 165 cm, weight 95.5 kg, BMI 35.1, temp 98.2 Additional Vitals No qualifying data available. Assessment/Plan Assessment: DM 2: As blood glucose levels are elevated in the evening time and overnight will increase dinner U500. Encourage patient to continue improvements to diet and activity to reduce medication needs long-term. Continue monitoring several times per day with kena using readings to guide diet, exercise for medication dosing. Call readings to our office intermittently for review. Follow-up with myself 3 months or sooner as needed Plan: See PI Discussed goals of treatment [...] -To lower BS and A1c: Breakfast: U500 110u + Humalog sliding Scale Lunch: Humalog sliding Scale Dinner: U500 115u + Humalog sliding Scale Bedtime: Humalog Sliding [...] repeat rule of 15's. -Continue to eat 8659-9275 calories per day. Best to consume calories divided into 3 meals per day. Avoid all sugared pop and other sweet drinks. Eat less sweet, white, and fast foods. -Continue to exercise as frequently as possible. Recommend at least 10,000 steps per day. When possible engage in moderate to intense aerobic activity with goals of increasing HR. -Record blood suga (more content not included)... [facility] 03-01-2024 History of Present illness Narrative [facility] Inpatient/Observation/Outpatient Rehabilitation Date: 03/01/2024 Patient Name: Risa Warner [x] Outpatient : 1975 02/24/24 Plan of Care/Recert ends [x] Pt cancelled due to: [x] Sick/ill Therapist/Cook Relief will attempt to see this patient, at our earliest opportunity. Lary Rea, AUTO INSPECTOR Date: 03/01/2024 documented in this encounter [facility] 11-22-2023 Note This is a Telehealth Appointment *This [...] This telemedicine visit was conducted due to: schedule conflict_ History of Present Illness 48-year-old female here for follow-up for DM 2. Patient was diagnosed in 2001 with type 2 diabetes. Treatment is complicated by gastroparesis for which she follows with a GI specialist at the [facility]. Due to this has not tolerated several diabetic medications including GLP-1 agonists and metformin. Last visit 08/23/2023 at which time renewed CGM orders and encourage consistent dosing of all medications. Since last visit patient reports she is using freestyle kena to to check blood sugar readings several times per day and over the last 14 days her average glucose is 145 with patient in target range 58% of the time, low 10% of the time with the rest of readings above goal. A1c is trending down at 7.5 prior to today's visit. Patient denies issues getting or taking her medicine. Denies chest pain, shortness of breath, vision changes, headaches. Diet: Generalized diet. Continues to eat 1 meal per day due to gastroparesis Exercise: Limited, no regular routine Dilated eye exam: > 1 yr Podiatry visit: No Diabetic kidney disease: No Retinopathy: No Neuropathy: Yes using gabapentin 600 mg 3 times a day Brought glucometer to visit: Yes freestyle kena checking several times per day Hypoglycemic episodes: No Hyperglycemic episodes: Yes Current treatment: Breakfast: U500 120u + Humalog sliding Scale Lunch: Humalog sliding Scale Dinner: U500 120u + Humalog sliding Scale Bedtime: Humalog Sliding scale Blood sugar 150-200 2u Blood sugar 201-250 4u Blood sugar 251-300 6u Blood sugar 301-350 8u Blood sugar 351-400 10u Blood sugar >400 12u Recent labs: A1c 7.5 (11/21/2023) 9.2 (08/03/2023) 7.8 (08/25/2022) 9 (05/19/22) 9.8 (10/23/2021) 8.3 (06/05/2021) 10.8 (12/28/2019) Weight (kg): 93.6 (11/22/2023) 92.3 (08/23/2023) 95.6 (08/25/2022) 95.2 (05/19/22) 86 (10/27/2021) 86.1 (06/05/2021) 84.1 (08/13/20) BMI: 34.4 (11/22/2023) 33.9 (08/23/2023) 35.1 (08/25/2022) 35 (05/19/22) 31.5 (10/27/2021) 31.6 (06/05/2021) 08/03/2023 Creatinine 0.7 GFR >60 AST 27, ALT 33 cholesterol 334, HDL 17, LDL not calculated due to elevated triglycerides, triglycerides 2187 TSH 0.46Urine microalbumin/creatinine ratio <30 Physical Exam ht 165cm, weight 93.6 kg, BMI 34.4, temp 97.8 Additional Vitals No qualifying data available. Assessment/Plan Assessment: DM 2: Congratulated patient on improvement in blood sugar readings. With hypoglycemic episodes will gently reduce U500 doses at both breakfast and dinner. Encourage patient to call her readings the office intermittently for review. Continue checking several times per day with CGM. Continue to improve diet and activity to further lower blood sugar eatings and A1c Plan: See PI Discussed goals of treatment [...] -To lower BS and A1c: Breakfast: U500 110u + Humalog sliding Scale Lunch: Humalog sliding Scale Dinner: U500 105u + Humalog sliding Scale Bedtime: Humalog Sliding [...] repeat rule of 15's. -Continue to eat 9121-1696 calories per day. Best to consume calories divided into 3 meals per day. Avoid all sugared pop and other sweet drinks. Eat less sweet, white, and fast foods. -Continue to exercise as frequently as possible. Recommend at least 10,000 steps per day. When possible engage in moderate to intense aerobic activity with goals of increasing HR. -Record blood sugar readings and call these to [phone] in 2 weeks for myself to review. Call sooner if you're experiencing frequent blood sugars <6 (more content not included)... [facility] 08-23-2023 Note This is a Telehealth Appointment [...] follows with a GI specialist at the [facility]. Due to this has not tolerated several [...] repeat rule of 15's. -Continue to eat 0301-4268 calories per day. Best to consume calories divided into 3 meals per day. Avoid all sugared pop (more content not included)... [facility] 06-16-2023 Hospital Discharge instructions Vicki Finnegan PA-C - 06/16/2023 8:31 PM EDT Follow-up with your chemistry tutor Dr. Marie for your syncope. Also follow-up with your neurologist for your syncope. Make sure you are drinking plenty of fluids, getting up slowly and cautiously, and being careful of your position with coughing. Testing today is improved. The following attachments cannot be sent through Care Everywhere.Fainting ([place])documented in this encounter [facility] 06-14-2023 History of Present illness Narrative Discharge instructions, follow up appointment and medications reviewed with the patient and spouse and appropriate educational materials and side effects teaching were provided. Physician Progress Note PATIENT: RISA WARNER CSN #: [id number] : 1975 ADMIT DATE: 06/10/2023 8:42 PM DISCH DATE: RESPONDING PROVIDER #: Bubba Hudson MD QUERY TEXT: Pt admitted with Pneumonia. [...] you! Chauncey Colunga, BSN,RN, CRCR RN Clinical Tool Trouble Shooter Options provided: -- Sepsis due to pneumonia [...] on 06/14/2023 11:42 AM Electronically signed by: Bubba Hudson MD 06/14/2023 11:51 AM Physical Therapy Facility/Department: [facility] Daily Treatment Note NAME: Risa Warner : 1975 Date of Service: 06/14/2023 Discharge Recommendations: Continue to assess pending progress Patient Diagnosis(es): The primary encounter diagnosis was Recurrent syncope. A diagnosis of Pneumonia of both lower lobes due to infectious organism was also pertinent to this visit. Assessment Assessment: PT. able to ambulate [id number] with no AD, SBA for safety with [...] walking the rich. Asking about being discharged. Windshield Wiper Repairer at bedside for shift assessment. Patient sitting up in bed, respirations are even and unlabored while on room air. Vitals obtained and assessment completed, see flowsheet for details. Medications given, see MAR for details. Snacks and fresh water provided. pt denies further needs at this time. Call light in reach. Physical Therapy Facility/Department: [facility] Daily Treatment Note NAME: Risa Warner : 1975 Date of Service: 06/13/2023 Discharge Recommendations: Continue to assess pending progress Patient Diagnosis(es): The primary encounter diagnosis was Recurrent syncope. A diagnosis of Pneumonia of both lower lobes due to infectious organism was also pertinent to this visit. Assessment Assessment: Pt. able to ambulate with no AD, [id number] with one noted imbalance, able to self [...] 33 Génesis Hickman PTA Occupational Therapy Facility/Department: [facility] Daily Treatment Note NAME: [...] Minutes 27 AGNES Mathias Physical Therapy Facility/Department: [facility] Daily Treatment Note NAME: Risa Warner : 1975 Date of Service: 06/13/2023 Discharge Recommendations: Continue to assess pending progress Patient Diagnosis(es): The primary encounter diagnosis was Recurrent syncope. A diagnosis of Pneumonia of both lower lobes due to infectious organism was also pertinent to this visit. Assessment Assessment: Pt. able to ambulate with no AD, [id number],[id number] with no nted OB and required one [...] Time Individual Concurrent Group Co-treatment Time In 735 Time Out 802 Minutes 27 Génesis Hickman PTA Comprehensive Nutrition [...] muscle mass loss Fluid Accumulation: Mild Extremities Veterinary Epidemiologist Strength: Not Performed Nutrition Assessment: Altered nutrition related labs r/t endocrine dysfunction, AEB glucose excursions on steroid with known diabetes. Improving A1C over time, down to 8.1. Asked provider to be on regular diet to choose for herself, which was granted. Weight consistently elevated/obese with mild fluctuations. Has had remote DM education and likely could benefit from refresher to further improve glycemia prison. Nutrition Related Findings: obese, trace LLE edema. Wound Type: None Current Nutrition Intake & Therapies: Average Meal Intake: 76-100% Average Supplements Intake: None Ordered ADULT DIET; Regular Anthropometric Measures: Height: 5' 6 (167.6 cm) [place] Body Weight (IBW): 130 lbs (59 kg) [...] Used for Energy Requirements: Current Energy (kcal/day): 0805-5417 (15-18) Weight Used for Protein Requirements: [place] Protein (g/day): 71-83 (1.2-1.4) Method Used for [...] needs at this time [address], [place] Contact: [phone] Progress Note SUBJECTIVE: Patient seen for f/u [...] Diagnostic Data: Complete Blood Count: Recent Labs 06/11/23 0535 06/12/23 0535 06/13/23 0600 WBC 12.6* 16.4* 13.4* RBC 3.80* 3.54* 3.91* HGB 12.0 11.2* 12.2 HCT 37.6 34.5* 38.0 MCV 98.9 97.5 97.2 MCH 31.6 31.6 31.2 MCHC 31.9 32.5 32.1 RDW 14.0 13.7 13.6 PLT 297 367 226 MPV 9.4 10.6 9.5 Last 3 Blood Glucose: Recent Labs 06/10/23210606/11/23 0535 06/12/23 0535 06/13/23 0600 GLUCOSE 109* 153* [...] Jardiance, Humulin R Nutrition status: obesity, non-morbid Licensed Embalmer Supervisor consult initiated Hospital Prophylaxis: DVT: Lovenox Stress Ulcer: H2 Tana Disposition: Shared decision making: All test results, treatment options and disposition options were discussed with the patient today Social determinants of health that may impact management: none Code status: Full Code Disposition: Discharge plan is pending [facility] Advanced Care Planning documentation: [x] [...] the patient's medical record. [DOES NOT SATISFY MIPS PERFORMANCE] Shelley Champagne APRN - JOSSE SU VICE PRESIDENT & GENERAL MANAGER [employer]-[facility] Hospitalist Medicine 06/13/2023, 9:10 AM Associated attestation - Bubba Hudson MD - 06/13/2023 5:31 PM EDT Images from the original note were not included. [address], [address] Attestation Patient: Risa Warner Date of Admission: 06/10/2023 8:42 PM Hospital Day # 3 Date of Evaluation: 06/13/2023 I personally evaluated and examined the patient [id number] in conjunction with the PA/VICE PRESIDENT & GENERAL MANAGER [employer] and agree with the management and dispostition of the patient. Please see the PA/VICE PRESIDENT & GENERAL MANAGER [employer]'s note for full details. My lezama findings [...] 09:05 PM High Sensitivity Troponin: Recent Labs 06/10/23 2107 06/10/23 2330 TROPHS 27* 26* Radiology/Imaging: CT CHEST [...] with the plan as outlined in the VICE PRESIDENT & GENERAL MANAGER [employer]/PA's note Disposition: Discharge plan is pending Please note that this chart was generated using voice recognition Keaton Rowon dictation software. Although every effort was made to ensure the accuracy of this automated die trouble shooter, some errors in die trouble shooter may have occurred. Bubba Hudson MD 06/13/2023 5:31 PM RESPIRATORY ASSESSMENT PROTOCOL [...] Value Date/Time PHART 7.293 07/02/2013 04:20 PM QMF3DEG 36.8 07/02/2013 04:20 PM PO2ART 70.6 07/02/2013 04:20 PM C0BPHBGP 92.6 07/02/2013 04:20 PM YVG1UHF 17.4 07/02/2013 04:20 PM PBEA NOT REPORTED [...] given: ____Yes ____No ____Patient Refused Notified Dr. Hudson of positive blood cultures. No new orders. Pt sitting up in the bed watching TV when credit underwriter entered the room. Pt is A&O x4. Vitals and assessment as charted. Pt rated her pain a 6 out of 10 in her head. Tramadol 50mg PO given. Pt also requested cough medicine. Pt given Tessalon 100mg PO. Pt denies any further needs at this time. Call light within reach. Occupational Therapy Facility/Department: [facility] Daily Treatment Note NAME: [...] the original note were not included. [address] , [place], [place], [address] Progress Note Date: 06/12/2023 Patient name: Risa [...] capsule by mouth nightly 01/29/21 Historical Provider, MD ALETA KAPLAN 200 UNIT/ML SOPN pen INJECT 15 UNITS [...] TABLET DAILY Patient taking differently: nightly 11/03/15 Leola Burns MD ALLERGIES: Pcn [penicillins] OBJECTIVE: Vitals: 06/11/23201006/11/23202906/12/23 0456 06/12/23 0523 BP: (!) 106/46 Pulse: 99 (!) 112 [...] clubbing or edema DIAGNOSTICS: Laboratory Testing: [facility] for lab data Recent Results (from [...] 5 mL 5 mL Oral Q4H PRN Bubba Hudson MD traMADol (ULTRAM) tablet 50 mg 50 mg Oral Q4H PRN Bubba Hudson MD aspirin EC tablet 81 mg 81 mg Oral Daily Bubba Hudson MD 81 mg at 06/11/23904 atorvastatin (LIPITOR) tablet 80 mg 80 mg Oral Nightly Bubba Hudson MD 80 mg at 06/11/232026 ibuprofen (ADVIL;MOTRIN) tablet 400 mg 400 mg Oral TID WC Bubba Hudson MD 400 mg at 06/11/231653 DULoxetine (CYMBALTA) extended release capsule 60 mg 60 mg Oral Nightly Bubba Hudson MD 60 mg at 06/11/232026 empagliflozin (JARDIANCE) tablet 10 mg 10 mg Oral Daily Bubba Hudson MD 10 mg at 06/11/23905 furosemide (LASIX) tablet 20 mg 20 mg Oral Daily Bubba Hudson MD 20 mg at 06/11/23905 fluticasone (FLONASE) 50 MCG/ACT nasal spray 2 spray 2 spray Each Nostril Daily Bubba Hudson MD 2 spray at 06/11/23905 lisinopril (PRINIVIL;ZESTRIL) tablet 10 mg 10 mg Oral Daily Bubba Hudson MD metoprolol succinate (TOPROL XL) extended release tablet 25 mg 25 mg Oral BID Bubba Hudson MD 25 mg at 06/11/232026 montelukast (SINGULAIR) tablet 10 mg 10 mg Oral Nightly Bubba Hudson MD 10 mg at 06/11/232026 rOPINIRole (REQUIP) tablet 4 mg 4 mg Oral Nightly Bubba Hudson MD 4 mg at 06/11/232026 glucose chewable tablet 16 g 4 tablet Oral PRN Bubba Hudson MD dextrose bolus 10% 125 mL 125 mL IntraVENous PRN Bubba Hudson MD Or dextrose bolus 10% 250 mL 250 mL IntraVENous PRN Bubba Hudson MD glucagon (rDNA) injection 1 mg 1 mg SubCUTAneous PRN Bubba Hudson MD dextrose 10 % infusion IntraVENous Continuous PRN Bubba Hudson MD sodium chloride flush 0.9 % injection 5-40 mL 5-40 mL IntraVENous 2 times per day Bubba Hudson MD 10 mL at 06/11/232024 sodium chloride flush 0.9 % injection 5-40 mL 5-40 mL IntraVENous PRN Bubba Hudson MD 0.9 % sodium chloride infusion IntraVENous PRN Bubba Hudson MD famotidine (PEPCID) tablet 20 mg 20 mg Oral BID Bubba Hudson MD 20 mg at 06/11/232027 enoxaparin (LOVENOX) injection 40 mg 40 mg SubCUTAneous Daily Bubba Hudson MD 40 mg at 06/11/23906 ondansetron (ZOFRAN-ODT) disintegrating tablet 4 mg 4 mg Oral Q8H PRN Bubba Hudson MD Or ondansetron (ZOFRAN) injection 4 mg 4 mg IntraVENous Q6H PRN Bubba Hudson MD polyethylene glycol (GLYCOLAX) packet 17 g 17 g Oral Daily PRN Bubba Hudson MD acetaminophen (TYLENOL) tablet 650 mg 650 mg Oral Q6H PRN Bubba Hudson MD Or acetaminophen (TYLENOL) suppository 650 mg 650 mg Rectal Q6H PRN Bubba Hudson MD [Held by provider] guaiFENesin-dextromethorphan (ROBITUSSIN DM) 100-10 MG/5ML syrup 5 mL 5 mL Oral Q4H PRN Bubba Hudson MD 5 mL at 06/11/231654 guaiFENesin (MUCINEX) extended release tablet 600 mg 600 mg Oral BID Bubba Hudson MD 600 mg at 06/11/232026 benzonatate (TESSALON) capsule 100 mg 100 mg Oral TID PRN Bubba Hudson MD 100 mg at 06/11/23 1503 cefTRIAXone (ROCEPHIN) 1,000 mg in sodium chloride 0.9 % 50 mL IVPB (mini-bag) 1,000 mg IntraVENous Q24H Bubba Hudson MD Stopped at 06/12/23 0038 And azithromycin (ZITHROMAX) tablet 500 mg 500 mg Oral Q24H Bubba Hudson MD 500 mg at 06/12/23 0007 gabapentin (NEURONTIN) capsule 600 mg 600 mg Oral TID Bubba Hudson MD 600 mg at 06/11/232026 fenofibrate (TRIGLIDE) tablet 160 mg 160 mg Oral Daily Bubba Hudson MD 160 mg at 06/11/23 023 cetirizine (ZYRTEC) tablet 10 mg 10 mg Oral Daily Bubba Hudson MD 10 mg at 06/11/23233 ipratropium 0.5 mg-albuterol 2.5 mg (DUONEB) nebulizer solution 1 Dose 1 Dose Inhalation 4x daily Bubba Hudson MD 1 Dose at 06/12/23 05 albuterol (PROVENTIL) (2.5 MG/3ML) 0.083% nebulizer solution 2.5 mg 2.5 mg Nebulization Q4H PRN Bubba Hudson MD methylPREDNISolone sodium succ (SOLU-MEDROL) injection 40 mg 40 mg IntraVENous Q12H Bubba Hudson MD 40 mg at 06/11/232023 baclofen (LIORESAL) tablet 10 mg 10 mg Oral TID PRN Bubba Hudson MD 10 mg at 06/11/232026 insulin lispro (HUMALOG) injection vial 0-16 Units 0-16 Units SubCUTAneous TID LISA Hudson MD 16 Units at 06/11/231654 insulin lispro (HUMALOG) injection vial 0-4 Units 0-4 Units SubCUTAneous Nightly Bubba Hudson MD 4 Units at 06/11/232023 insulin regular human (humuLIN R U-500 KWIKPEN) 500 UNIT/ML concentrated injection pen 100 Units (Patient Supplied) 100 Units SubCUTAneous BID LISA Hudson MD 100 Units at 06/11/231651 insulin lispro (HUMALOG) injection vial 15 Units 15 Units SubCUTAneous TID LISA Hudson MD 15 Units at 09/16/23 1656 glucose chewable tablet 16 g 4 tablet Oral PRN Bubba Hudson MD dextrose bolus 10% 125 mL 125 mL IntraVENous PRN Bubba Hudson MD Or dextrose bolus 10% 250 mL 250 mL IntraVENous PRN Bubba Hudson MD glucagon (rDNA) injection 1 mg 1 mg IntraMUSCular PRN Bubba Hudson MD dextrose 10 % infusion IntraVENous Continuous PRN Bubba Hudson MD ASSESSMENT: Principal Problem: Acute pneumonia Active [...] this chart was generated using voice recognition Keaton Rowon dictation software. Although every effort was made to ensure the accuracy of this automated die trouble shooter, some errors in die trouble shooter may have occurred. Bubba Hudson MD 06/12/2023 8:08 AM Patient resting in [...] Pt has 2 insulin pens locked in field sales engineer room. Only using the Humulin 500. Pt stated after being asked where the needles are there is already one on it credit underwriter asked you reuse your needles? Pt nodded yes. Notified Dr. Hudson of pts BS of 567. He is looking into her home insulin but said to give 25 total units now and to order lantus [address] Hudson of pts random BS of 473 when [...] pearls also given for cough. Told pt credit underwriter would update for any changes. Occupational Therapy Facility/Department: [facility] Occupational Therapy Initial Assessment [...] Ambulation Assistance: Independent Transfer Assistance: Independent Active Sheep Sticker: Yes Objective Safety Devices Type of Devices: [...] 15 Ivet Rinaldi OT Physical Therapy Facility/Department: [facility] Physical Therapy Initial Assessment [...] / Caregiver Present: No Referring Practitioner: Dr. Hudson Referral Date : 06/11/23 Diagnosis: pneumonia Subjective Subjective: Pt reports feeling fatigued, pt reports chronic back pain of 04/04 Social/Functional History Social/Functional History Lives With: Spouse [...] 1221 Time Out 1234 Minutes 13 Sahara Strauss PT Morning VS and assessment completed. Patient complains of back and neck pain this morning. Educated on medication times. Assisted patient to the bathroom with minimal help. Patient steady on feet. O2 was off patient upon entering room. O2 reads 90%. Will keep patient on room air for now. No further needs at this time. Care ongoing. Orthostatic BPs completed by credit underwriter at this time as patient was c/o of multiple episodes of syncope and collapse at home. Patient arrived to [facility], room 315, at this time via wheelchair. Patient independently stood and ambulated to bed. Patient is alert and orientated and on 2L of nasal cannula O2. Patient does NOT normally wear O2 at home. Weight was obtained. documented in this encounter [facility] 12-30-2022 Note CONSULTATION CONSULTATION DATE: 12/30/2022 TO: [...] our patients to inform us about any vmth-xau-bhybisp medications or herbal remedies/nutritional supplements/alternative remedies. 2. [...] options with their primary care provider. [facility] 12-08-2022 History of Present illness Narrative Discharge [...] day of surgery. documented in this encounter [facility] [employer] Phone: 12-08-2022 Hospital Discharge instructions Makayla Ji [...] nearest Emergency Room. documented [facility] encounter [facility] Phone: 11-30-2022 Note CONSULTATION CONSULTATION DATE: 11/30/2022 [...] after she undergoes the imaging studies. [facility] 11-23-2022 History of Present illness Narrative Patient arrived for home sleep study. Instructed on home sleep monitoring device use and benefits. documented in this encounter [facility] [employer] Phone: 10-21-2022 Note CONSULTATION CONSULTATION DATE: 10/21/2022 HISTORY OF PRESENT ILLNESS: This is a 47-year-old female who returns to the clinic status post thoracic RFA bilaterally of T9, T10 and T11, T12. This was completed on 09/14/2022 and has afforded her significant relief. On the 04 of October, patient had her spinal stimulator removed by Dr. Sherman in [place]. Overall, she is feeling increased relief, but [...] followed up in the clinic thereafter. [facility] 10-08-2022 History of Present illness Narrative Patient instructed on extended bus driver/monitor indications and use. Diary sent with patient. documented in this encounter [facility] [employer] Phone: 09-29-2022 History of Present illness Narrative Instructed on objectives and procedure of a tilt study documented [facility] Phone: 09-07-2022 Evaluation note Encounter Date Diagnosis [...] would like to proceed with surgical intervention [facility] Other 12-01-2022 NoteCONSULTATION CONSULTATION DATE: 08/26/2022 HISTORY [...] appointment on 09/07/[address] Sherman in [place] to discuss removal of her nerve stimulator. She is diabetic with the most recent A1c being 7.8 as of yesterday. This is a great improvement for her. Medications include diclofenac 75 mg b.i.d., Requip 4 mg daily, duloxetine, gabapentin, baclofen and Elliott 5/325 b.i.d. The patient is inquiring about returning to tramadol, as she felt she got better pain relief with the tramadol over the Elliott. Current pain at rest today is 4/10; [...] post procedure and agrees to move forward.[facility] 08-06-2022 History of Present illness Narrative* Vineet Nam, PT - 08/06/2022 1:15 PM EST No [...] Nam PT, DPT [facility] [employer] Work Phone: 1(928) 362-332611-03-2022 NoteCONSULTATION CONSULTATION DATE: 07/29/2022 HISTORY OF PRESENT [...] have this removed by Dr. Sherman in [place] on 09/07/2022. She was last seen on 04/29/2022 which, at that time, she was just starting physical therapy as prescribed by her contact agent. She feels, between ground and the pool [...] followed up in the office post procedure.[id number] History of Present illness Narrative* Mulu MccrayMILAGROS - 07/19/2022 4:30 PM EDT [facility] Outpatient Physical Therapy Daily Note Patient: Risa Warner : 1975 CSN #: [id number] Referring Physician: Sam Hidalgo MD Date: 07/19/2022 Diagnosis: Other LBP, M54.59, pain in unspecified hip, M25.559 Treatment Diagnosis: Decreased activity endurance, trochanteric bursitis, chronic LBP PT Insurance Information: [employer] [place] Total # of Visits Approved: 20 Per [...] exercise to improve endurance for ADLs. -met [employer] Goals Time Frame for [employer] Goals : 4 weeks [employer] Goal 1: Patient will be independent and compliant with a HEP -met [employer] Stock Clerk Goal 2: Patient will improve bilateral hip ROM to 90* for ADLs [employer] Stock Clerk Goal 3: Patient will improve bilateral LE strength to >/= 4/5 for ADLs. [employer] Stock Clerk Goal 4: Patient will improve 5 time sit to stand test time to <30 seconds to indicate improved muscular power [employer] Stock Clerk Goal 5: The patient will improve ambulation endurance to be able to ambulate >300' before requiring a seated rest break. Minutes Tracking: Time In: 1611 Time Out: 1705 Minutes: 54 Timed Code Treatment Minutes: 51 Minutes Mulu Mccray, MILAGROS [id number] Date: 07/19/2022 [facility] Phone: 1(264) 947-218810-21-2022 History of Present illness Narrative* Vineet Nam, PT - 07/16/2022 2:45 PM EDT [facility] Outpatient Physical Therapy Daily Note Patient: Risa Warner : 1975 CSN #: [id number] Referring Physician: Sam Hidalgo MD Date: 07/16/2022 Treatment Diagnosis: Decreased activity endurance, trochanteric bursitis, chronic LBP PT Insurance Information: [employer] [place] Total # of Visits Approved: 20 Per [...] exercise to improve endurance for ADLs. -met [employer] Stock Clerk Goals Time Frame for [employer] Stock Clerk Goals : 4 weeks [employer] Stock Clerk Goal 1: Patient will be independent and compliant with a HEP -met [employer] Stock Clerk Goal 2: Patient will improve bilateral hip ROM to 90* for ADLs Shelter Goal 3: Patient will improve bilateral LE strength to >/= 4/5 for ADLs. Shelter Goal 4: Patient will improve 5 time sit to stand test time to <30 seconds to indicate improved muscular power [employer] Stock Clerk Goal 5: The patient will improve ambulation endurance to be able to ambulate >300' before requiring a seated rest break. Minutes Tracking: Time In: 1445 Time Out: 1530 Minutes: 45 Timed Code Treatment Minutes: 43 Minutes Vineet Nam PT, DPT Date: 07/16/2022 [facility] [employer] Phone: 1(374) 704-274310-17-2022 History of Present illness Narrative* Mulu Mccray PTA - 07/12/2022 2:15 PM EDT [facility] Outpatient Physical Therapy Daily Note Patient: Risa Warner : 1975 CSN #: [id number] Referring Physician: Sam Hidalgo MD Date: 07/12/2022 Treatment Diagnosis: Decreased activity endurance, trochanteric bursitis, chronic LBP PT Insurance Information: [employer] [place] Total # of Visits Approved: 20 Per [...] exercise to improve endurance for ADLs. -met [employer] Stock [employer] Goals Time Frame for [employer] Stock Clerk Goals : 4 weeks Shelter Goal 1: Patient will be independent and compliant with a HEP -met Shelter Goal 2: Patient will improve bilateral hip ROM to 90* for ADLs Shelter Goal 3: Patient will improve bilateral LE strength to >/= 4/5 for ADLs. [employer] Stock Clerk Goal 4: Patient will improve 5 time sit to stand test time to <30 seconds to indicate improved muscular power [employer] Stock Clerk Goal 5: The patient will improve ambulation endurance to be able to ambulate >300' before requiring a seated rest break. Minutes Tracking: Time In: 1411 Time Out: 7 Minutes: 46 Timed Code Treatment Minutes: 44 Minutes [facility] Mulu Mccray, AUTO INSPECTOR [id number] Date: 07/12/2022 [facility] Phone: 1(817) 142-444510-10-2022 History of Present illness Narrative* Karrie Beltran, AUTO INSPECTOR - 07/05/2022 3:00 PM EDT [facility] Outpatient Physical Therapy Daily Note Patient: Risa Warner : 1975 CSN #: [id number] Referring Physician: Sam Hidalgo MD Date: 07/05/2022 Treatment Diagnosis: Decreased activity endurance, trochanteric bursitis, chronic LBP PT Insurance Information: [employer] [place] Total # of Visits Approved: 20 Per Physician Order Total # of Visits to Date: 13 No Show: 0 Canceled Appointment: 2 Pre-Treatment Pain: 7- Subjective: Pt reports having 8/10 low back pain and 7/10 B hip pain Exercises: Exercise 1: HEP: Progressive ambulation, sktc 2x20 sec hold, piriformis stretch 2x20 sec; bridging,seated march without back support Exercise 12: Water walk [...] pt required further clarification. Post Treatment Pain: 810 Plan Plan Frequency: 2 Plan weeks: 4 Goals (Total # of Visits to Date: 13) Short Term Goals Time Frame for Short Term Goals: 2 weeks Short Term Goal 1: Patient will be initiated with a HEP -MET Short Term Goal 2: Patient will tolerate 30 min of aquatic exercise to improve endurance for ADLs. -met Shelter Goals Time Frame for Shelter Goals : 4 weeks [employer] Goal 1: Patient will be independent and compliant with a HEP -met Shelter Goal 2: Patient will improve bilateral hip ROM to 90* for ADLs [employer] Stock [employer] Goal 3: Patient will improve bilateral LE strength to >/= 4/5 for ADLs. Shelter Goal 4: Patient will improve 5 time sit to stand test time to <30 seconds to indicate improved muscular power Shelter Goal 5: The patient will improve ambulation endurance to be able to ambulate >300' before requiring a seated rest break. Minutes Tracking: Time In: 1500 Time Out: 1543 Minutes: 43 Karrie Beltran PTA Date: 07/05/2022 [facility] [employer] Phone: [phone]) 885-621610-07-2022 History of Present illness Narrative* Vineet Nam PT - 07/02/2022 10:00 AM EDT [facility] Outpatient Physical Therapy Daily Note Patient: Risa Warner : 1975 CSN #: [id number] Referring Physician: Sam Hidalgo MD Date: 07/02/2022 Treatment Diagnosis: Decreased activity endurance, trochanteric bursitis, chronic LBP PT Insurance Information: [employer] [place] Total # of Visits Approved: 20 Per [...] exercise to improve endurance for ADLs. -met Shelter Goals Time Frame for Shelter Goals : 4 weeks [employer] Goal 1: Patient will be independent and compliant with a HEP Shelter Goal 2: Patient will improve bilateral hip ROM to 90* for ADLs [employer] Goal 3: Patient will improve bilateral LE strength to >/= 4/5 for ADLs. [employer] Stock Clerk Goal 4: Patient will improve 5 time sit to stand test time to <30 seconds to indicate improved muscular power [employer] Stock Clerk Goal 5: The patient will improve ambulation endurance to be able to ambulate >300' before requiring a seated rest break. Minutes Tracking: Time In: 1000 Time Out: 1045 Minutes: 45 Timed Code Treatment Minutes: 43 Minutes Vineet Nam PT, DPT Date: 07/02/2022 [facility] [employer] Phone: [phone] 812-182610-03-2022 History of Present illness Narrative* Karrie Beltran PTA - 06/28/2022 3:00 PM EDT [facility] Outpatient Physical Therapy Daily Note Patient: Risa Warner : 1975 CSN #: [id number] Referring Physician: Sam Hidalgo MD Date: 06/28/2022 Treatment Diagnosis: Decreased activity endurance, trochanteric bursitis, chronic LBP PT Insurance Information: [employer] [place] Total # of Visits Approved: 20 Per [...] sec hold, piriformis stretch 2x20 sec; bridging,seated march without back support Exercise 12: Water walk [...] required further clarification. Post Treatment Pain: 8/10 low back - not a sollid 8 [...] exercise to improve endurance for ADLs. -met [employer] Goals Time Frame for Shelter Goals : 4 weeks Shelter Goal 1: Patient will be independent and compliant with a HEP Shelter Goal 2: Patient will improve bilateral hip ROM to 90* for ADLs [employer] Stock [employer] Goal 3: Patient will improve bilateral LE strength to >/= 4/5 for ADLs. [employer] Stock Clerk Goal 4: Patient will improve 5 time sit to stand test time to <30 seconds to indicate improved muscular power [employer] Stock [employer] Goal 5: The patient will improve ambulation endurance to be able to ambulate >300' before requiring a seated rest break. Minutes Tracking: Time In: 1502 Time Out: 1542 Minutes: 40 Karrie Beltran PTA Date: 06/28/2022 [facility] [employer] Phone: [phone] 840-762409-23-2022 History of Present illness Narrative* Karrie Beltran PTA - 06/18/2022 1:30 PM EDT [facility] Outpatient Physical Therapy Daily Note Patient: Risa aWrner : 1975 CSN #: [id number] Referring Physician: Sam Hidalgo MD Date: 06/18/2022 Treatment Diagnosis: Decreased activity endurance, trochanteric bursitis, chronic LBP PT Insurance Information: [employer] [place] Total # of Visits Approved: 12 Per [...] pt required further clarification. Post Treatment Pain: Plan Plan Frequency: 2-3 Plan weeks: 4-6 Goals (Total # of Visits to Date: 7) Short Term Goals Time Frame for Short term goals: 2 weeks Short term goal 1: Patient will be initiated with a HEP -MET Short term goal 2: Patient will tolerate 30 min of aquatic exercise to improve endurance for ADLs. -met Shelter Goals Time Frame for retirement goals : 4 weeks terminal supervisor goal 1: Patient will be independent and compliant with a HEP terminal supervisor goal 2: Patient will improve bilateral hip ROM to 90* for ADLs terminal supervisor goal 3: Patient will improve bilateral LE strength to >/= 4/5 for ADLs. retirement goal 4: Patient will improve 5 time sit to stand test time to <30 seconds to indicate improved muscular power retirement goal 5: The patient will improve ambulation endurance to be able to ambulate >300' before requiring a seated rest break. Minutes Tracking: Time In: 1332 Time Out: 1406 Minutes: 34 Karrie Beltran PTA Date: 06/18/2022 [facility] [employer] Work Phone: 1(629) 311-130609-19-2022 History of Present illness Narrative* Karrie Beltran PTA - 06/14/2022 3:00 PM EDT [facility] Outpatient Physical Therapy Daily Note Patient: Risa Warner : 1975 CSN #: [id number] Referring Physician: Sam Hidalgo MD Date: 06/14/2022 Treatment Diagnosis: Decreased activity endurance, trochanteric bursitis, chronic LBP PT Insurance Information: [employer] [place] Total # of Visits Approved: 12 Per [...] pt required further clarification. Post Treatment Pain: Plan Plan Frequency: 2-3 Plan weeks: 4-6 Goals (Total # of Visits to Date: 5) Short Term Goals Time Frame for Short term goals: 2 weeks Short term goal 1: Patient will be initiated with a HEP -MET Short term goal 2: Patient will tolerate 30 min of aquatic exercise to improve endurance for ADLs. -met Shelter Goals Time Frame for terminal supervisor goals : 4 weeks retirement goal 1: Patient will be independent and compliant with a HEP terminal supervisor goal 2: Patient will improve bilateral hip ROM to 90* for ADLs retirement goal 3: Patient will improve bilateral LE strength to >/= 4/5 for ADLs. terminal supervisor goal 4: Patient will improve 5 time sit to stand test time to <30 seconds to indicate improved muscular power terminal supervisor goal 5: The patient will improve ambulation endurance to be able to ambulate >300' before requiring a seated rest break. Minutes Tracking: Time In: 5 Time Out: 1545 Minutes: 30 Karrie Beltran PTA Date: 06/14/2022 [facility] Phone: [phone] 219-471609-07-2022 History of Present illness Narrative* Cristina Antonio - 06/02/2022 1:45 PM EDT [facility] Inpatient/Observation/Outpatient Rehabilitation Date: 06/02/2022 Patient Name: Risa Warenr [] Inpatient Acute/Observation [] Outpatient : 1975 [] Pt no showed for scheduled appointment [] Pt refused/declined therapy at this time due to: [x] Pt cancelled due to: [] No Reason Given [] Sick/ill [] Other: Has 2 open wounds cx today and tuesday Therapist/Cook Relief will attempt to see this patient, at our earliest opportunity. Cristina Antonio Date: 06/02/2022 [facility] Phone: [phone]) 675-272808-30-2022 History of Present illness Narrative* Nathan Garcia, MARISOL - 05/25/2022 2:45 PM EDT [facility] Outpatient Physical Therapy Daily Note Patient: Risa Warner : 1975 CSN #: [id number] Referring Physician: Sam Hidalgo MD Date: 05/25/2022 Treatment Diagnosis: Decreased activity endurance, trochanteric bursitis, chronic LBP Total # of Visits Approved: 12 Per Physician Order Total # of Visits to Date: 2 No Show: 0 Canceled Appointment: 0 Pre-Treatment Pain: 8/10 Subjective: Pt states she feels about the same as IE but had no increase in symptoms or discomfort with HEP. Pt rates pain 8/10 and states today is shu relative to [...] pt required further clarification. Post Treatment Pain: 7-8 Plan Plan Frequency: 2-3 Plan weeks: 4-6 Goals (Total # of Visits to Date: 2) Short Term Goals Time Frame for Short term goals: 2 weeks Short term goal 1: Patient will be initiated with a HEP Short term goal 2: Patient will tolerate 30 min of aquatic exercise to improve endurance for ADLs. [employer] Goals Time Frame for retirement goals : 4 weeks terminal supervisor goal 1: Patient will be independent and compliant with a HEP retirement goal 2: Patient will improve bilateral hip ROM to 90* for ADLs retirement goal 3: Patient will improve bilateral LE strength to >/= 4/5 for ADLs. retirement goal 4: Patient will improve 5 time sit to stand test time to <30 seconds to indicate improved muscular power retirement goal 5: The patient will improve ambulation endurance to be able to ambulate >300' before requiring a seated rest break. Minutes Tracking: Time In: 1446 Time Out: 1543 Minutes: 57 Timed Code Treatment Minutes: 54 Minutes Nathan Garcia PT Date: 05/25/2022 documented in this encounterB[facility] [employer] Phone: 1(489) 639-652608-04-2022 NoteCONSULTATION CONSULTATION DATE: 04/29/2022 HISTORY OF PRESENT [...] fatty liver disease. She recently saw her contact agent and was prescribed physical therapy. The patient [...] indicated and patient agrees with this plan.[facility] [id number] NoteCONSULTATION CONSULTATION DATE: 04/01/2022 This is a [...] is also under the care of her contact agent who consulting practice manager her fibromyalgia. She feels very flared [...] will discontinue the Tramadol, change it to Elliott 5/325 b.i.d. contingent upon the patient bringing [...] be followed up in the office post-procedure. [facility] Signed and Approved by: KEILY CLEMENTS . 04/08/2022 09:47:00[facility]07-07-2022 Note [facility] Vascular Lower Arterial Plethysmography Procedure Patient Name TIMMY Date of Study 03/31/2022 RISA Cooper Date of 1975 Gender Female Age 47 year(s) Race Room Number Corporate ID [id number] # Patient Acct [id number] # MR # [id number] [employer] Supervisor Vicki Spicer RVT Interpreting Physician Ruddy Mallory [...] ! !![id number] ![phone] ! ! +---------++--------+-----+ ++--------+-----+ +[facility] [id number] History of Present illness Narrative* Corrine Guerra RN - 03/03/2021 11:00 AM EDT Patient ordered stress echo test. The patient is unable to walk due to back and leg issues. Talked with ordering physician and changed to Lexiscan nuclear stress test. Patient verbalizes agreement. documented in this [facility] [employer] Work Phone: [phone] 625-830304-27-2021 History of Present illness Narrative* Yamel Guadarrama [...] recovered for 2 hours. [facility]: 1(694) 777-312904-27-2021 Hospital Discharge instructions* Instructions* Yamel Guadarrama RN [...] your doctor if you can take an jauc-mvb-nriabdb medicine. If you think your pain medicine [...] Where can you learn more? Go to [email or web address] and sign in to your [employer] account. Enter P586 in the Search Health Information box to learn more about Lumbar Puncture: What to Expect at Home. If you do not have an account, please click on the Sign Up Now link. [employer]. Care instructions adapted under license by [employer]. This care instruction is for use with your licensed healthcare professional. If you have questions about amedical condition or this instruction, always ask your healthcare professional. [employer] disclaims any warranty or liability for your use of this information. Content Version: 11.0.078942; Current as of: November 14, 2015 * Attachments The following attachments cannot be sent through Care Everywhere. * Myelogram (Palauan) documented in this [facility] [employer] Work Phone: [phone] 354-477703-11-2021 NotePatient Outreach ([facility]OVAM[facility]) RISA WARNER ([id number]) 1975 F Date Time Provider Department 12/04/20 MORGAN GREENBERG During your visit today, we recorded the following information about you: Allergies As of Date: 12/04/2020 Noted Allergy Reaction PENICILLINS 06/27/2009 2 - Rash Date Reviewed: 12/28/2019 Reviewed by: Johnathan Milner - Fully Assessed Order(s):SARS-COVID VACCINE 1ST DOSE APPT [[id number]] Order #: [id number] FUTURE Prescriptions as of 12/04/2020 Sig: TIZANIDINE [...] Encounter Status:Closed by JUAN FRANCISCO JUSTICE on 12/08/20[facility] Evaluation note* Diagnosis DDD (degenerative disc disease), lumbar Degeneration of lumbar or lumbosacral intervertebral disc documented in this encounter GELI Phone: evalyzmblg note* Diagnosis Renal stones Calculus of kidney Renal colic documented in this encounter [facility]ELI Phone: evalhqfpdd note* Diagnosis Renal stones Calculus of kidney documented in this encounter GELI Phone: evalumzzbe note* Diagnosis Hepatomegaly documented in this encounter GELI Phone: evalgdlsor note* Diagnosis Essential hypertension Unspecified essential hypertension Chest discomfort Other chest pain Hyperlipidemia, unspecified hyperlipidemia type Tobacco abuse Tobacco use disorder documented in this encounter GELI Phone: evalqotysk note* Diagnosis Abnormal LFTs Other abnormal blood chemistry documented in this encounter [facility]ELI Phone: evaluation note* Diagnosis Other screening mammogram documented in this encounter GELI Phone: evaluautuz note* Diagnosis Right upper quadrant abdominal pain Abdominal pain, right upper quadrant documented in this encounter GELI Phone: evalxbziak note* Diagnosis Right upper quadrant abdominal pain Abdominal pain, right upper quadrant documented in this encounter GELI Phone: evaluation note* Diagnosis Intermittent claudication (HCC) Peripheral vascular disease, unspecified documented in this encounter [employer] Phone: evaluation note* Diagnosis Colon cancer screening Special screening for malignant neoplasms, colon Fatty liver Other chronic nonalcoholic liver disease documented in this encounter [employer] Phone: evalvtnoud note* Diagnosis Rib pain on left side- Primary Chest pain, unspecified Screening for colon cancer Special screening for malignant neoplasms, colon documented in this encounter [employer] Phone: evalqoxfqu note* Diagnosis Colon cancer screening Special screening for malignant neoplasms, colon Fatty liver Other chronic nonalcoholic liver disease Screening for colon cancer Special screening for malignant neoplasms, colon documented in this encounter [employer] Phone: evalfmfafe note* Diagnosis Controlled type 2 diabetes mellitus with diabetic polyneuropathy, with long-term current use of insulin (HCC) Screening for colon cancer Special screening for malignant neoplasms, colon documented in this encounter [employer] Phone: evaluation noteNo assessment information available [facility] Work Phone: Evaluation note* Diagnosis Postural syncope Screening for colon cancer Special screening for malignant neoplasms, colon documented in this encounter [employer] Phone: evaleziuje note* Diagnosis Syncope and collapse Preop cardiovascular exam Pre-operative cardiovascular examination Dizziness Dizziness and giddiness Primary hypertension Unspecified essential hypertension Mixed hyperlipidemia Tobacco abuse counseling Counseling on substance use and abuse Screening for colon cancer Special screening for malignant neoplasms, colon documented in this encounter [employer] Phone: evaluation noteNo [employer] Other evaluation note* Diagnosis Lumbar radiculitis Thoracic or lumbosacral neuritis or radiculitis, unspecified Screening for colon cancer Special screening for malignant neoplasms, colon documented in this encounter [employer] Phone: evaluation note* Diagnosis Tired Other malaise and fatigue Fatigue, unspecified type LAYNE (obstructive sleep apnea) Obstructive sleep apnea (adult) (pediatric) Screening for colon cancer Special screening for malignant neoplasms, colon documented in this encounter [employer] Phone: evaluation note* Diagnosis Screening for colon cancer Special screening for malignant neoplasms, colon documented in this encounter [employer] Phone: evaluation note* Diagnosis Thoracic neuritis Thoracic or lumbosacral neuritis or radiculitis, unspecified documented in this encounter [employer] Phone: evaluation note* Diagnosis LAYNE (obstructive sleep apnea) Obstructive sleep apnea (adult) (pediatric) documented in this encounter [employer] Phone: evalfejppr note* Diagnosis Acute pneumonia- Primary Recurrent syncope [...] Syncope and collapse documented in this encounter [employer] note* Diagnosis Syncope, unspecified syncope type- Primary documented in this encounter [employer] note* Diagnosis Lower leg edema Edema documented in this encounter [employer] [facility]* Diagnosis Recurrent pansinusitis [facility]* Diagnosis Recurrent pansinusitis Recurrent sinusitis Unspecified sinusitis (chronic) documented [facility] this [facility] Narrative - Reported* Type Description Date Medical History Hypertension Medical History type II diabetes Medical History PMDD Medical History hyperlipidemia Surgical History (R) shoulder surgery Surgical History hysterectomy Surgical History bladder surgery Surgical History Pelvic Reconstruction Hospitalization History See Above [facility] Other Hospital Discharge instructions* Attachments The following attachments cannot be sent through Care Everywhere. * Chest Pain: Musculoskeletal (Palauan) [email or web address] Work Phone: Hospital Discharge instructions* Attachments The following attachments cannot be sent through Care Everywhere. * Pneumonia (Palauan) * Diabetes: Carb Counting and Eating Well: General Info (Palauan) documented in [email or web address] Summary Purpose Family History Relationship Condition Age at Onset Recorded Date/T barry father Diabetes mellitus Unknown Heart disease Unknown Vascular disorder Unknown Chronic obstructive pulmonary disease Unk nown Not Specified Diabetes mellitus Unknown brother Liver problem Unknown Advance Directives Documents on File Type Date Recorded Patient Brancher Expl anation Advance Directives and Livin g Will Advance Directives and Livin g Will 09/24/2013 3:29 PM Power of Soaking Pit Operator Power of Soaking Pit Operator 09/24/2013 3:29 PM Latest Code Status on File Code Status Date Activated Date Inactivated Comments Full Code 12/21/2017 5:28 AM 12/23/2017 6:35 PM Full Code 04/28/2016 7:55 PM 04/29/2016 5:42 PM Full Code 04/27/2016 8:29 AM 04/27/2016 1:04 PM Full Code 12/31/2015 1:59 PM 04/27/2016 8:29 AM Full Code 12/31/2015 11:18 AM 12/31/2015 1:59 PM Documents on File Type Date Recorded Patient Brancher Expl anation Advance Directives and Livin g Will Advance Directives and Livin g Will 09/24/2013 3:29 PM Power of Soaking Pit Operator Power of Soaking Pit Operator 09/24/2013 3:29 PM Latest Code Status on File Code Status Date Activated Date Inactivated Comments Full Code 12/21/2017 5:28 AM 12/23/2017 6:35 PM Full Code 04/28/2016 7:55 PM 04/29/2016 5:42 PM Full Code 04/27/2016 8:29 AM 04/27/2016 1:04 PM Full Code 12/31/2015 1:59 PM 04/27/2016 8:29 AM Full Code 12/31/2015 11:18 AM 12/31/2015 1:59 PM Documents on File Type Date Recorded Patient Brancher Expl anation ACP-Advance Directive ACP-Advance Directive 09/24/2013 3:29 PM ACP-Power of Soaking Pit Operator ACP-Power of Soaking Pit Operator 09/24/2013 3:29 PM Documents on File Type Date Recorded Patient Brancher Expl anation ACP-Advance Directive ACP-Advance Directive 09/24/2013 3:29 PM ACP-Power of Soaking Pit Operator ACP-Power of Soaking Pit Operator 09/24/2013 3:29 PM Documents on File Type Date Recorded Patient Brancher Expl anation ACP-Advance Directive ACP-Power of Soaking Pit Operator ACP-Advance Directive 09/24/2013 3:29 PM ACP-Power of Soaking Pit Operator 09/24/2013 3:29 PM Healthcare Agents on File Name Relationship Healthcare Agent Relationshi p Communication Yoel Warner Spouse Primary Decision Maker [phone] (Home) Documents on File Type Date Recorded Patient Brancher Expl anation ACP-Advance Directive ACP-Power of Soaking Pit Operator ACP-Advance Directive 09/24/2013 3:29 PM ACP-Power of Soaking Pit Operator 09/24/2013 3:29 PM Healthcare Agents on File [...] Documents on File Type Date Recorded Patient Brancher Expl anation ACP-Power of Soaking Pit Operator ACP-Advance Directive 09/24/2013 3:29 PM ACP-Power of Soaking Pit Operator 09/24/2013 3:29 PM Healthcare Agents on File Name Relationship Healthcare Agent Relationshi p Communication Yoel Warner Spouse Primary Decision Maker [phone] (Home) Documents on File Type Date Recorded Patient Brancher Expl anation ACP-Power of Soaking Pit Operator ACP-Advance Directive 09/24/2013 3:29 PM ACP-Power of Soaking Pit Operator 09/24/2013 3:29 PM Healthcare Agents on File Name Relationship Healthcare Agent Relationshi p Communication Yoel Warner Spouse Primary Decision Maker [phone] (Home) Healthcare Agents on File Name Relationship Healthcare Agent Relationshi p Communication Yoel Warner Spouse Primary Decision Maker [phone] (Home) Documents on File Type Date Recorded Patient Brancher Expl anation ACP-Advance Directive 09/24/2013 3:29 PM ACP-Power of Soaking Pit Operator 09/24/2013 3:29 PM Healthcare Agents on File [...] Documents on File Type Date Recorded Patient Brancher Expl anation ACP-Advance Directive 09/24/2013 3:29 PM ACP-Power of Soaking Pit Operator 09/24/2013 3:29 PM Healthcare Agents on File [...] Communication Yoel Warner Spouse Primary Decision Maker Latest Code Status on File [...] Documents on File Type Date Recorded Patient Brancher Expl anation ACP-Advance Directive 09/24/2013 3:29 PM ACP-Power of Soaking Pit Operator 09/24/2013 3:29 PM ACP-Advance Directive 06/13/2023 12:08 PM Health Care Power of Soaking Pit Operator Latest Code Status on File Code Status [...] Spouse Primary Decision Maker [phone] (Home) Iliana Green Child Secondary Decision Maker Healthcare Agents on File Name [...] Spouse Primary Decision Maker [phone] (Home) Date Activated Date Inactivated Comments 06/11/2023 12:44 AM 06/14/2023 3:29 PM Date Activated Date Inactivated Comments 12/21/2017 5:28 AM 12/23/2017 6:35 PM Date Activated Date Inactivated Comments 04/28/2016 7:55 PM 04/29/2016 5:42 PM Date Activated Date Inactivated Comments 04/27/2016 8:29 AM 04/27/2016 1:04 PM Date Activated Date Inactivated Comments 12/31/2015 1:59 PM 04/27/2016 8:29 AM Healthcare Agents on File Name Relationship Healthcare Agent Relationshi p Communication Yoel Warner Spouse Primary Decision Maker [phone] (Home) Healthcare Agents on File Name Relationship Healthcare Agent Relationshi p Communication Yoel Warner Spouse Primary Decision Maker [phone] (Home) Healthcare Agents on File Name Relationship Healthcare Agent Relationsks p Communication Yoel Warner Spouse Primary Decision Maker Documents on File Type Date Recorded Patient Brancher Expl anation ACP-Advance Directive 09/24/2013 3:29 PM ACP-Power of Soaking Pit Operator 09/24/2013 3:29 PM ACP-Advance Directive 06/13/2023 12:08 PM Health Care Power of Soaking Pit Operator Date Activated Date Inactivated Comments 06/11/2023 12:44 AM 06/14/2023 3:29 PM Date Activated Date Inactivated Comments 12/21/2017 5:28 AM 12/23/2017 6:35 PM Date Activated Date Inactivated Comments 04/28/2016 7:55 PM 04/29/2016 5:42 PM Date Activated Date Inactivated Comments 04/27/2016 8:29 AM 04/27/2016 1:04 PM Date Activated Date Inactivated Comments 12/31/2015 1:59 PM 04/27/2016 8:29 AM Healthcare Agents on File Name Relationship Healthcare Agent [facility] Communication Yoel Warner Spouse Primary Decision Maker Assessments Diagnosis Diabetes mellitus type [...] CONTRAST Additional Contrast? Oral Curtis Jean MD [address] [place] [address] Status Reason Specialty Diagnoses / Procedures Referred By Contact Referred To Contact Authorized Radiology Diagnoses Generalized abdominal pain Procedures NM GASTRIC EMPTYING HC NM GASTRIC EMPTYING STUDY Baggott, Curtis B, MD [address] [place] [address] [place] Status Reason Specialty Diagnoses / Procedures Referre d By Contact Referred To Contact Open Radiology Diagnoses Generalized abdominal pain Procedures NM GASTRIC EMPTYING Vivian Oseguera JOINTER MACHINE - YEAST WASHER [address] [place] [address] Status Reason Specialty Diagnoses / Procedures Referre d By Contact Referred To Contact Closed Radiology Diagnoses Traumatic injury of head, initial encounter Scalp tenderness S09.90XA (ICD-10-CM) - Traumatic injury of head, initial encounter R51.9 (ICD-10-CM) - Scalp tenderness Procedures CT HEAD WO CONTRAST Vivian Oseguera JOINTER MACHINE - YEAST WASHER [address] [place] [address] Status Reason Specialty Diagnoses / Procedures Re ferred By Contact Referred To Contact Authorized Cardiology Diagnoses Essential hypertension Chest discomfort Hyperlipidemia, unspecified hyperlipidemia type Tobacco abuse Procedures Echo stress test HC MI SEST. REST STRESS MULT Nathan Ardon MD [address] [place] [address] [place] [address] Status Reason Specialty Diagnoses / Procedures Referre d By Contact Referred To Contact Closed Radiology Diagnoses Other screening mammogram Procedures ALEJANDRO MARISOL DIGITAL SCREEN BILATERAL Vivian Oseguera JOINTER MACHINE - YEAST WASHER [address] [place] [phone] Status Reason Specialty Diagnoses / Procedures Referred By Contact Referred To Contact Not Required - Recondo Radiology Diagnoses Right upper quadrant abdominal pain Procedures US GALLBLADDER RUQ HC US ABDOMINAL LIMITED Flip Dodson JOINTER MACHINE - YEAST WASHER [address] [place] [address] Specialty Diagnoses / Procedures Referred By Contac t Referred To Contact Radiology Diagnoses Intermittent claudication (HCC) Procedures VL LOWER EXTREMITY ARTERIAL SEGMENTAL PRESSURES W PPG Vivian Oseguera JOINTER MACHINE - YEAST WASHER [address] [place] [phone] Referral ID Status Reason Start Date Expiration Date Visits Re quested Visits Authorized [id number] Closed 03/24/2022 03/24/2023 1 1 Specialty Diagnoses / Procedures Referred By Contac t Referred To Contact Radiology Diagnoses Colon cancer screening Fatty liver Procedures US LIVER Tari Curtis MD [address] [facility] [place] [address] [place] [address] Referral ID Status Reason Start Date Expiration Date Visits Re quested Visits Authorized [id number] Closed 07/26/2022 07/26/2023 1 1 Specialty Diagnoses / Procedures Referred By Contac t Referred To Contact Diagnoses Postural syncope R55 (ICD-10-CM) - Postural syncope Procedures Tilt Table Test Tilt Table Test TX CARDIOVASCULAR FUNCTION EVAL W/TILT TABLE W/MNTR 02583 - TX CARDIOVASCULAR FUNCTION EVAL W/TILT TABLE W/MNTR Vivian Oseguera, JOINTER MACHINE - YEAST WASHER [address] [place] [address] Referral ID Status Reason Start Date Expiration Date Visits Re quested Visits Authorized [id number] Closed 09/23/2022 09/23/2023 1 1 Specialty Diagnoses / Procedures Referred By Contac t Referred To Contact Diagnoses Syncope and collapse Preop cardiovascular exam Dizziness Primary hypertension Mixed hyperlipidemia Tobacco abuse counseling Procedures Continuous cardiac monitoring, >2 up to 14 days Nathan Ardon MD [address] [place] [address] [place] [address] Referral ID Status Reason Start Date Expiration Date V isits Requested Visits Authorized [id number] Pending Review 10/08/2022 09/28/2023 1 1 Specialty Diagnoses / Procedures Referred By Contac t Referred To Contact Radiology Diagnoses Lumbar radiculitis Procedures MRI LUMBAR SPINE WO Keily Mendez, 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 [employer] [address] [place] [address] Referral ID Status Reason Start Date Expiration Date Visits Re quested Visits Authorized [id number] Closed 10/25/2022 12/09/2022 1 1 Specialty Diagnoses / Procedures Referred By Contac t Referred To Contact Sleep Center Diagnoses Tired Fatigue, unspecified type LAYNE (obstructive sleep apnea) Procedures Home sleep study Nathan Ardon MD [address] [place] [address] [place] [address] Referral ID Status Reason Start Date Expiration Date Visits Re quested Visits Authorized [id number] Closed 11/09/2022 11/15/2023 1 1 Specialty Diagnoses / Procedures Referred By Contac t Referred To Contact Radiology Diagnoses Thoracic neuritis M54.14 (ICD-10-CM) - Thoracic neuritis Procedures MRI THORACIC SPINE WO CONTRAST CHG MRI SPINAL CANAL THORACIC W/O CONTRAST MATRL 60153 - CHG MRI SPINAL CANAL THORACIC W/O CONTRAST MATRBarbara Hemphill MD [address] [facility], [address] [place] [address] Referral ID Status Reason Start Date Expiration Date Visits Re quested Visits Authorized [id number] Closed 12/01/2022 01/15/2023 1 1 Specialty Diagnoses / Procedures Referred By Contac t Referred To Contact Sleep Center Diagnoses LAYNE (obstructive sleep apnea) Procedures Sleep study with PAP titration Nathan Ardon MD [address] [place] [address] [place] [address] Referral ID Status Reason Start Date Expiration Date Visits Re quested Visits Authorized [id number] Closed 01/02/2023 01/02/2024 1 1 Specialty Diagnoses / Procedures Referred By Contac t Referred To Contact Radiology Diagnoses Recurrent sinusitis Procedures CT SINUS WO CONTRAST MightVivian W, JOINTER MACHINE - YEAST WASHER [address] [place] [address] Referral ID Status Reason Start Date Expiration Date Visits Re quested Visits Authorized [id number] Closed 07/02/2024 08/16/2024 1 1 Specialty Diagnoses / Procedures Referred By Contac t Referred To Contact Radiology Diagnoses Recurrent pansinusitis Procedures CT SINUS W CONTRAST Might, Vivian W, JOINTER MACHINE - YEAST WASHER [address] [place] [address] Referral ID Status Reason Start Date Expiration Date Visits Re quested Visits Authorized [id number] Closed 06/26/2024 06/25/2025 1 1 Chief Complaint and Reason for Visit Chief Complaint Failed Implant Chief Complaint Failed Implant Failed Implant Additional Source Comments INFORMATION SOURCE (unrecogn ized section and content) DATE CREATED AUTHOR 03/15/2018 [facility] DATE CREATED AUTHOR AUTHOR'S ORGANIZ ATION 10/24/2021 [facility] DATE CREATED AUTHOR AUTHOR'S ORGANIZ ATION 11/05/2021 [facility] DATE CREATED AUTHOR AUTHOR'S ORGANIZ ATION 10/30/2022 [facility] DATE CREATED AUTHOR AUTHOR'S ORGANIZ ATION 02/09/2023 [facility] DATE CREATED AUTHOR AUTHOR'S ORGANIZ ATION 06/17/2024 [facility] DATE CREATED AUTHOR AUTHOR'S ORGANIZ ATION 07/07/2024 [facility] Reason for Visit (unrecogniz ed section and content) Status Reason Specialty Diagnoses / Procedures Referre d By Contact Referred To Contact Closed Radiology Diagnoses Generalized abdominal pain Procedures HC CT ABD/PEL W CONT Curtis Jean MD [address] [place] [address] [facility] [address] Scan [address] [place] [address] Status Reason Specialty Diagnoses / Procedures Referre d By Contact Referred To Contact Open Radiology Diagnoses Thyromegaly Procedures US HEAD NECK SOFT TISSUE THYROID US THYROID [facility] US,HEAD/NECK TISSUES,B-SCAN/REAL TIME Hveer Olivear PA [address] [place] [address] Status Reason Specialty Diagnoses / Procedures Referred By Contact Referred To Contact Authorized Radiology Diagnoses Functional dyspepsia Procedures HC NM GASTRIC EMPTYING STUDY Curtis Jean MD [address] [place] [address] Status Reason Specialty Diagnoses / Procedures Referre d By Contact Referred To Contact Closed Radiology Diagnoses Generalized abdominal pain Procedures NM GASTRIC EMPTYING HC NM GASTRIC EMPTYING STUDY Curtis Jean MD [address] [place] [address] [place] Status Reason Specialty Diagnoses / Procedures Referre d By Contact Referred To Contact Closed Radiology Diagnoses Traumatic injury of head, initial encounter Scalp tenderness S09.90XA (ICD-10-CM) - Traumatic injury of head, initial encounter R51.9 (ICD-10-CM) - Scalp tenderness Procedures CT HEAD WO CONTRAST Vivian Oseguera W, JOINTER MACHINE - YEAST WASHER [address] [place] [address] Status Reason Specialty Diagnoses / Procedures Referre d By Contact Referred To Contact Closed Radiology Diagnoses DDD (degenerative disc disease), lumbar Procedures CT LUMBAR SPINE W CONTRAST FL MYELOGRAM LUMBOSACRAL S&I IR MYELOGRAM LUMBOSACRAL IR MYELOGRAM LUMBOSACRAL Corey Cleveland MD [address] [place] [address] Status Reason Specialty Diagnoses / Procedures Re ferred By Contact Referred To Contact Authorized Cardiology Diagnoses Essential hypertension Chest discomfort Hyperlipidemia, unspecified hyperlipidemia type Tobacco abuse Procedures Echo stress test HC NM SEST. REST STRESS MULT Nathan Ardon MD [address] [place] [address] [place] [address] Status Reason Specialty Diagnoses / Procedures Referred By Contact Referred To Contact Pending Review Stress Lab Diagnoses Essential (primary) hypertension Other chest pain Hyperlipidemia, unspecified Tobacco use Procedures CHG MYOCARDIAL SPECT MULTIPLE STUDIES Nathan Ardon MD [address] [place] [address] [place] [address] [facility] Stress Lab [address] [place] [address] Status Reason Specialty Diagnoses / Procedures Referre d By Contact Referred To Contact Closed Radiology Diagnoses Other screening mammogram Procedures ALEJANDRO MARISOL DIGITAL SCREEN BILATERAL Vivian Oseguera APRN - YEAST WASHER [address] [place] [address] Status Reason Specialty Diagnoses / Procedures Referred By Contact Referred To Contact Not Required - Recondo Radiology Diagnoses Right upper quadrant abdominal pain Procedures US GALLBLADDER RUQ HC US ABDOMINAL LIMITED Flip Dodson APRN - YEAST WASHER [address] [place] [phone] Specialty Diagnoses / Procedures Referred By Contac t Referred To Contact Radiology Diagnoses Intermittent claudication (HCC) Procedures VL LOWER EXTREMITY ARTERIAL SEGMENTAL PRESSURES W PPG Vivian Oseguera APRN - YEAST WASHER [address] [place] [phone] Referral ID Status Reason Start Date Expiration Date Visits Re quested Visits Authorized [id number] Closed 03/24/2022 03/24/2023 1 1 Reason Comments Rib Pain (injury) Left sided, ongoing since Tuesday, denies injury, hurts to take a deep breath Specialty Diagnoses / Procedures Referred By Contac t Referred To Contact Radiology Diagnoses Colon cancer screening Fatty liver Procedures [place], [place] [address] [place] [address] Referral ID Status Reason Start Date Expiration Date Visits Re quested Visits Authorized [id number] Closed 07/26/2022 07/26/2023 1 1 Specialty Diagnoses / Procedures Referred By Contac t Referred To Contact Diagnoses Postural syncope R55 (ICD-10-CM) - Postural syncope Procedures Tilt Table Test Tilt Table Test TX CARDIOVASCULAR FUNCTION EVAL W/TILT TABLE W/MNTR 09157 - TX CARDIOVASCULAR FUNCTION EVAL W/TILT TABLE W/MNTR Vivian Oseguera APRN - YEAST WASHER [address] [place] [address] Referral ID Status Reason Start Date Expiration Date Visits Re quested Visits Authorized [id number] Closed 09/23/2022 09/23/2023 1 1 Specialty Diagnoses / Procedures Referred By Contac t Referred To Contact Diagnoses Syncope and collapse Preop cardiovascular exam Dizziness Primary hypertension Mixed hyperlipidemia Tobacco abuse counseling Procedures Continuous cardiac monitoring, >2 up to 14 days Nathan Ardon MD [address] [place] [address] [place] [address] Referral ID Status Reason Start Date Expiration Date V isits Requested Visits Authorized [id number] Pending Review 10/08/2022 09/28/2023 1 1 Specialty Diagnoses / Procedures Referred By Contac t Referred To Contact Radiology Diagnoses Lumbar radiculitis Procedures MRI LUMBAR SPINE WO CONTRAST Keily Clements, 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 [employer] [address] [place] [id number] Referral ID Status Reason Start Date Expiration Date Visits Re quested Visits Authorized [id number] Closed 10/25/2022 12/09/2022 1 1 Specialty Diagnoses / Procedures Referred By Contac t Referred To Contact Sleep Center Diagnoses Tired Fatigue, unspecified type LAYNE (obstructive sleep apnea) Procedures Home sleep study Nathan Ardon MD [address] [place] [address] [place] [address] Referral ID Status Reason Start Date Expiration Date Visits Re quested Visits Authorized [id number] Closed 11/09/2022 11/15/2023 1 1 Specialty Diagnoses / Procedures Referred By Contac t Referred To Contact Diagnoses Screening for colon cancer SCREENING Procedures TX COLON CA SCRN NOT HI RSK IND TX COLONOSCOPY FLX DX W/COLLJ SPEC WHEN PFRMD TX COLONOSCOPY W/BIOPSY SINGLE/MULTIPLE TX COLSC FLX W/RMVL OF TUMOR POLYP LESION SNARE TQ COLORECTAL CANCER SCREENING, NOT HIGH RISK Tari Curtis MD [address] [place] [address] [place] [address] [facility] [id number] [place] [address] Referral ID Status Reason Start Date Expiration Date Visits Re quested Visits Authorized [id number] 1 1 Specialty Diagnoses / Procedures Referred By Contac t Referred To Contact Radiology Diagnoses Thoracic neuritis M54.14 (ICD-10-CM) - Thoracic neuritis Procedures MRI THORACIC SPINE WO CONTRAST CHG MRI SPINAL CANAL THORACIC W/O CONTRAST MATRL [id number] - CHG MRI SPINAL CANAL THORACIC W/O CONTRAST MATRL Barbara Mcghee MD [address] [facility], [address] [place] [address] Referral ID Status Reason Start Date Expiration Date Visits Re quested Visits Authorized [id number] Closed 12/01/2022 01/15/2023 1 1 Specialty Diagnoses / Procedures Referred By Contac t Referred To Contact Sleep Center Diagnoses LAYNE (obstructive sleep apnea) Procedures Sleep study with PAP titration Nathan Ardon MD [address] [place] [address] Referral ID Status Reason Start Date Expiration Date Visits Re quested Visits Authorized [id number] Closed 01/02/2023 01/02/2024 1 1 Reason Comments Loss of Consciousness X3 since 1899 with each episode lasting approx 45 seconds, [...] 203. Specialty Diagnoses / Procedures Referred By Contac t Referred To Contact Diagnoses Pneumonia of both lower lobes due to infectious organism Recurrent syncope Acute pneumonia Bubba Hudson MD [address] [place] [address] [facility] [id number] [place] [address] Referral ID Status Reason Start Date Expiration Date Visits Re quested Visits Authorized [id number] 1 1 Reason Comments Loss of Consciousness Patient was recent ly discharged, patient today had syncope episode. Specialty Diagnoses / Procedures Referred By Contac t Referred To Contact Radiology Diagnoses Recurrent pansinusitis Procedures CT SINUS W CONTRAST Might, Vivian W, JOINTER MACHINE - YEAST WASHER [address] [place] [address] Referral ID Status Reason Start Date Expiration Date Visits Re quested Visits Authorized [id number] Closed 06/26/2024 06/25/2025 1 1 Care Teams (unrecognized sec tion and content) [employer] Relationship Specialty Start Date End Date Might, Vivian Combs [facility] PCP - General Family Nurse Practitioner 05/10/18 [employer] Relationship Specialty Start Date End Date Might, Vivian Combs [facility] PCP - General Family Nurse Practitioner 05/10/18 [employer] Relationship Specialty Start Date End Date Might, Vivian Combs [facility] PCP - General Family Nurse Practitioner 05/10/18 [employer] Relationship Specialty Start Date End Date Might, Vivian Combs [facility] PCP - General Family Nurse Practitioner 05/10/18 [employer] Relationship Specialty Start Date End Date Might, Vivian Combs [facility] PCP - General Family Nurse Practitioner 05/10/18 [employer] Relationship Specialty Start Date End Date Might, Vivian Combs [facility] PCP - General Family Nurse Practitioner 05/10/18 [employer] Relationship Specialty Start Date End Date Might, Vivian Combs [facility] PCP - General Family Nurse Practitioner 05/10/18 [employer] Relationship Specialty Start Date End Date Might, Vivian Combs [facility] PCP - General Family Nurse Practitioner 05/10/18 [employer] Relationship Specialty Start Date End Date Might, Vivian Combs [facility] PCP - General Family Nurse Practitioner 05/10/18 [employer] Relationship Specialty Start Date End Date Might, Vivian Combs [facility] PCP - General Family Nurse Practitioner 05/10/18 [employer] Relationship Specialty Start Date End Date Might, Vivian Combs [facility] PCP - General Family Nurse Practitioner 05/10/18 [employer] Relationship Specialty Start Date End Date Might, Vivian Combs [facility] PCP - General Family Nurse Practitioner 05/10/18 [employer] Relationship Specialty Start Date End Date Might, Vivian Combs [facility] PCP - General Family Nurse Practitioner 05/10/18 [employer] Relationship Specialty Start Date End Date Might, Vivian Combs [facility] PCP - General Family Nurse Practitioner 05/10/18 [employer] Relationship Specialty Start Date End Date Might, Vivian Combs [facility] PCP - General Family Nurse Practitioner 05/10/18 [employer] Relationship Specialty Start Date End Date Might, Vivian Combs [facility] PCP - General Family Nurse Practitioner 05/10/18 [employer] Relationship Specialty Start Date End Date Might, Vivian Combs [facility] PCP - General Family Nurse Practitioner 05/10/18 [employer] Relationship Specialty Start Date End Date Might, Vivian Combs [facility] PCP - General Family Nurse Practitioner 05/10/18 Team Status: Inactive Member Role Status Dates NON STAFF Primary Care Provider Active Shiraz Sherman MD Attending Provider Active Team Status: Active Member Role Status Dates NON STAFF Primary Care Provider Active [employer] Relationship Specialty Start Date End Date Might, Vivian Combs [facility] PCP - General Family Nurse Practitioner 05/10/18 [employer] Relationship Specialty Start Date End Date Might, Vivian Combs APRN [facility] PCP - General Family Nurse Practitioner 05/10/18 [employer] Relationship Specialty Start Date End Date Might, Vivian Combs APRN [facility] PCP - General Family Nurse Practitioner 05/10/18 [employer] Relationship Specialty Start Date End Date Might, [facility] - General Family Nurse Practitioner 05/10/18 [employer] Relationship Specialty Start Date End Date Might, Vivian Combs APRN [facility] PCP - General Family Nurse Practitioner 05/10/18 [employer] Relationship Specialty Start Date End Date Might, Vivian Combs APRN [facility] PCP - General Family Nurse Practitioner 05/10/18 [employer] Relationship Specialty Start Date End Date Might, Vivian Combs APRN [facility] PCP - General Family Nurse Practitioner 05/10/18 [employer] Relationship Specialty Start Date End Date Might, Vivian Combs APRN [facility] PCP - General Family Nurse Practitioner 05/10/18 [employer] Relationship Specialty Start Date End Date Might, Vivian Combs APRN [facility] PCP - General Family Nurse Practitioner 05/10/18 [employer] Relationship Specialty Start Date End Date Might, Vivian Combs APRN [facility] PCP - General Family Nurse Practitioner 05/10/18 [employer] Relationship Specialty Start Date End Date Might, Vivian Combs APRN [facility] PCP - General Family Nurse Practitioner 05/10/18 [employer] Relationship Specialty Start Date End Date Vivian OsegueraJOSSE [facility] PCP - General Family Nurse Practitioner 05/10/18 [employer] Relationship Specialty Start Date End Date Vivian OsegueraJOSSE [facility] PCP - General Family Nurse Practitioner 05/10/18 [employer] Relationship Specialty Start Date End Date Vivian O[facility]gueraJOSSE [facility] PCP - General Family Nurse Practitioner 05/10/18 [employer] Relationship Specialty Start Date End Date Vivian [facility]OSSE [facility] P[facility] - General Family Nurse Practitioner [...] 1715 (Given - Provid er: Mario Alberto Reeder, RN) morphine injection 4 mg (COMPLETED) 4 mg, IntraVENous, ONCE, 1 dose, On Tue08/06/22 at 1430 1441 (Given - Provid er: Mario Alberto Reeder RN) Continuous Medication Order 12/06/2022 12/07/2022 12/08/2022 lactated ringers IV soln infusion IntraVENous, at 100 mL/hr, CONTINUOUS, Starting on Tue12/08/22 at 1230, Pre-op (day of surgery) 1236 (New Bag - Prov ider: Swapna France RN)1427 (Stopped - Provider: Makayla Ji, BREANNA) Scheduled Medication Order 06/12/2023 06/13/2023 06/14/2023 aspirin EC tablet 81 mg 81 mg, Oral, DAILY, First dose on 06/11/23 at 0900, Until Discontinued 08 (Given - Provider: Makayla Leon, BREANNA) 0834 (Given - Provider: Joanie Donovan, BREANNA) 0824 (Given - Provider: Yuliet Galaviz, BREANNA) atorvastatin (LIPITOR) tablet 80 mg 80 mg, Oral, NIGHTLY, First dose on 06/11/23 at 0100, Until Discontinued 2015 (Given - Provider: Ramya Nam RN) 2105 (Given - Provider: Cheyenne Poon, BREANNA) 2100 (Due) azithromycin (ZITHROMAX) tablet 500 mg (COMPLETED)(Linked Group 1) 500 mg, Oral, EVERY 24 HOURS, 3 doses, First dose on 06/11/23 at 2300, Last dose on 06/13/23 at 2300, Antimicrobial Indications: Pneumonia (CAP), CAP duration of therapy: Other, Other CAP Duration: 3 days 0007 (Given - Provider: Laurence Weathers RN)2311 (Given - Provider: Ramya Nam RN) 2341 (Given - Provider: Shira Dobbins RN) cefTRIAXone (ROCEPHIN) 1,000 mg in sodium chloride 0.9 % 50 mL IVPB (mini-bag)(Linked Group 1) 1,000 mg, IntraVENous, EVERY 24 HOURS, 5 doses, First dose on 06/11/23 at 2300, Last dose on Tue06/15/23 at 2300, Antimicrobial Indications: Pneumonia (CAP), CAP duration of therapy: 5 days 0008 (New Bag - Provider: Laurence Weathers RN)0038 (Stopped - Provider: Laurence Weathers, BREANNA)2314 (New Bag - Provider: Ramya Nam RN)2351 (Stopped - Provider: Oren Washburn RN) 2340 (New Bag - Provider: Shira Dobbins RN) 0044 (Stopped - Provider: Shira Dobbins RN)2300 (Due) cetirizine (ZYRTEC) tablet 10 mg 10 mg, Oral, DAILY, First dose (after last modification) on 06/11/23 at 0230, Until Discontinued, Substituted for Levocetirizine (XYZAL). 0824 (Given - Provider: Makayla Leon RN) 0834 (Given - Provider: Joanie Donovan RN) 0824 (Given - Provider: Yuliet Galaviz RN) DULoxetine (CYMBALTA) extended release capsule 60 mg 60 mg, Oral, NIGHTLY, First dose on 06/11/23 at 0100, Until Discontinued, Do not crush or break. May add contents of capsule to apple juice or apple sauce, but not chocolate. 2015 (Given - Provider: Ramya Nam RN) 2104 (Given - Provider: Cheyenne Poon RN) 2100 (Due) empagliflozin (JARDIANCE) tablet 10 mg 10 mg, Oral, DAILY, First dose on 06/11/23 at 0900, Until Discontinued, Indication of Use: Heart Failure (preserved EF), Note: Discontinuation of SGLT2 inhibitor therapy 3 days prior to surgery or major procedures is recommended given the risk for euglycemic diabetic ketoacidosis. 0824 (Given - Provider: Makayla Leon RN) 0834 (Given - Provider: Joanie Donovan RN) 0824 (Given - Provider: Yuliet Galaviz RN) enoxaparin (LOVENOX) injection 40 mg 40 mg, SubCUTAneous, DAILY, First dose on 06/11/23 at 0900, Until Discontinued, Indication of Use: Prophylaxis-DVT/PE 0825 (Given - Provider: Makayla Leon RN) 0835 (Given - Provider: Joanie Donovan RN) 0824 (Given - Provider: Yuliet Galaviz RN) famotidine (PEPCID) tablet 20 mg 20 mg, Oral, 2 TIMES DAILY, First dose on 06/11/23 at 0100, Until Discontinued 0824 (Given - Provider: Makayla Leon RN)2015 (Given - Provider: Ramya Nam RN) 0834 (Given - Provider: Joanie Donovan RN)2104 (Given - Provider: Cheyenne Poon RN) 0824 (Given - Provider: Yuliet Galaviz RN)2100 (Due) fenofibrate (TRIGLIDE) tablet 160 mg 160 mg, Oral, DAILY, First dose (after last modification) on 06/11/23 at 0230, Until Discontinued, Substituted for Fenofibrate (Non-Formulary Dose). 0824 (Given - Provider: Makayla Leon RN) 0834 (Given - Provider: Joanie Donovan RN) 0824 (Given - Provider: Yuliet Galaviz RN) fluticasone (FLONASE) 50 MCG/ACT nasal spray 2 spray 2 spray, Each Nostril, DAILY, First dose on 06/11/23 at 0900, Until Discontinued 0828 (Given - Provider: Makayla Leon RN) 0835 (Given - Provider: Joanie Donovan RN) 0831 (Given - Provider: Yuliet Galaviz RN) furosemide (LASIX) tablet 20 mg 20 mg, Oral, DAILY, First dose on 06/11/23 at 0900, Until Discontinued 0824 (Given - Provider: Makayla Leon RN) 0834 (Given - Provider: Joanie Donovan RN) 0824 (Given - Provider: Yuliet Galaviz RN) gabapentin (NEURONTIN) capsule 600 mg 600 mg, Oral, 3 TIMES DAILY, First dose (after last modification) on 06/11/23 at 0230, Until Discontinued 0824 (Given - Provider: Makayla Leon RN)142 (Given - Provider: Makayla Leon RN)2015 (Given - Provider: Ramya Nam RN) 0834 (Given - Provider: Joanie Donovan RN)1349 (Given - Provider: Joanie Donovan RN)2043 (Given - Provider: Cheyenne Poon, BREANNA) 0824 (Given - Provider: Yuliet Galaviz, BREANNA)1400 (Due)2100 (Due) guaiFENesin (MUCINEX) extended release tablet 600 mg 600 mg, Oral, 2 TIMES DAILY, First dose on 06/11/23 at 0100, Until Discontinued, Do not crush or break. 0824 (Given - Provider: Makayla Leon RN)2015 (Given - Provider: Ramya Nam RN) 0833 (Given - Provider: Joanie Donovan RN)210 (Given - Provider: Cheyenne Poon, BREANNA) 0824 (Given - Provider: Yuliet Galaviz, BREANNA)2100 (Due) ibuprofen (ADVIL;MOTRIN) tablet 400 mg 400 mg, Oral, 3 TIMES DAILY WITH MEALS, First dose on 06/11/23 at 0800, Until Discontinued, Do not crush or break. Substituted for Diclofenac (VOLTAREN). 0823 (Given - Provider: Makayla Leon RN)1200 (Given - Provider: Makayla Leon RN)1622 (Given - Provider: Makayla Leon RN) 0834 (Given - Provider: Joanie Donovan RN)1210 (Given - Provider: Joanie Donovan RN)1717 (Given - Provider: Joanie Donovan RN) 0824 (Given - Provider: Yuliet Galaviz, BREANNA)1131 (Not Given - Provider: Yuliet Galaviz RN [...] Comment: [id number]) 0812 (Not Given - Provider: Joanie Donovan RN - Reason: Order parameters not met - Comment: [phone] (Not Given - Provider: Joanie Donovan RN - Reason: Order parameters not met - Comment: [phone] (Given - Provider: Joanie Donovan RN) 0825 (Not Given - Provider: Yuliet [...] Over 349 4 Units and notify physician 2018 (Not Given - Provider: Ramya Nam RN [...] Makayla Leon RN) 0835 (Given - Provider: Joanie Donovan RN)1210 (Given - Provider: Joanie Donovan RN)1717 (Given - Provider: Joanie Donovan RN) 0825 (Given - Provider: Yuliet Galaviz RN)113 (Given - Provider: Yuliet Galaviz RN)1700 (Due) insulin regular human (humuLIN R U-500 KWIKPEN) 500 UNIT/ML concentrated injection pen 100 Units (Patient Supplied) 100 Units, SubCUTAneous, 2 TIMES DAILY WITH MEALS, First dose on 06/11/23 at 1700, Until Discontinued, This is highly concentrated insulin. Patient may use home supply. 0828 (Given - Provider: Makayla Leon, RN)1655 (Given - Provider: Makayla Leon, RN) 0858 (Given - Provider: Joanie Donovan, RN)1718 (Given - Provider: Joanie Donovan RN) 0900 (Given - Provider: Yuliet Galaviz RN)1700 (Due) ipratropium 0.5 mg-albuterol 2.5 mg (DUONEB) nebulizer solution 1 Dose (CANCELED) 1 Dose, Inhalation, 4 times daily, First dose (after last modification) on 06/11/23 at 0900, Until Discontinued, Initiate RT Bronchodilator Protocol: Yes - Inpatient Protocol 0523 (Given - Provider: Ewa Rascon RCP)1137 (Given - Provider: Tere Espinoza RCP)1617 (Given - Provider: Tere Espinoza RCP)1953 (Given - Provider: Ewa Rascon RCP) 0443 (Given - Provider: Ewa Rascon RCP) ipratropium 0.5 mg-albuterol 2.5 mg (DUONEB) nebulizer solution 1 Dose (CANCELED) 1 Dose, Inhalation, 3 TIMES DAILY, First dose (after last modification) on Tue06/13/23 at 0915, Until Discontinued, Initiate RT Bronchodilator Protocol: Yes - Inpatient Protocol 1015 (Given - Provider: Eulalia Solis RCP)1437 (Given - Provider: Eulalia Solis RCP)2015 (Given - Provider: Ewa Rascon RCP) 0734 (Given - Provider: Tere Espinoza RCP) ipratropium 0.5 mg-albuterol 2.5 mg (DUONEB) nebulizer solution 1 Dose 1 Dose, Inhalation, 4 TIMES DAILY RESP, First dose (after last modification) on Tue06/14/23 at 1500, Until Discontinued, Initiate RT Bronchodilator Protocol: Yes - Inpatient Protocol 1500 (Due)1999 (Due) lisinopril (PRINIVIL;ZESTRIL) tablet 10 mg 10 mg, Oral, DAILY, First dose on 06/11/23 at 0900, Until Discontinued 823 (Given - Provider: Makayla Leon RN) 0834 (Given - Provider: Joanie Donovan, BREANNA) 823 (Given - Provider: Yuliet Galaviz, BREANNA) methylPREDNISolone sodium succ (SOLU-MEDROL) injection 40 mg 40 mg, IntraVENous, EVERY 12 HOURS, First dose on 06/11/23 at 0900 0824 (Given - Provider: Makayla Leon, RN)2016 (Given - Provider: Ramya Nam RN) 834 (Given - Provider: Joanie Donovan, BREANNA)2105 (Given - Provider: Cheyenne Poon, BREANNA) 824 (Given - Provider: Yuliet Galaviz, BREANNA)2099 (Due) metoprolol succinate (TOPROL XL) extended release tablet 25 mg 25 mg, Oral, 2 times daily, First dose on 06/11/23 at 0100, Until Discontinued, Do not crush or chew. 08 (Given - Provider: Makayla Leon RN)2015 (Given - Provider: Ramya Nam RN) 08 (Given - Provider: Joanie Donovan, BREANNA)2104 (Given - Provider: Cheyenne Poon, BREANNA) 823 [...] 20 mL/lumen 0835 (Given - Provider: Makayla Leon, RN)2016 (Given - Provider: Ramya Nam, BREANNA) 0834 (Given - Provider: Joanie Donovan, BREANNA)2113 (Given - Provider: Cheyenne Poon, BREANNA) 08 (Given - Provider: Yuliet Galaviz RN)2100 (Due) PRN Medication Order 06/12/2023 06/13/2023 06/14/2023 [...] on 06/11/23 at 0043, Until Discontinued, Cough 1918 (Given - Provider: Ramya Nam, BREANNA) dextrose 10 % infusion IntraVENous, at 100 [...] Discontinued, Cough 1622 (Given - Provider: Makayla Leon RN)2318 (Given - Provider: Ramya Nam RN) 0709 (Given - Provider: Joanie Donovan RN)1717 (Given - Provider: Joanie Donovan, BREANNA)2116 (Given - Provider: Cheyenne Poon, BREANNA) 0652 (Given - Provider: Yuliet Galaviz, BREANNA)1131 (Given - Provider: Yuliet Galaviz RN) guaiFENesin-dextromethorp mullen (ROBITUSSIN DM) 100-10 MG/5ML syrup 5 mL 5 mL, Oral, EVERY 4 HOURS PRN, Starting on 06/11/23 at 0043, Until Discontinued, Cough 0659 (Held by provider - Provider: Bubba Hudson MD - Reason: Other) ondansetron (ZOFRAN) injection [...] Ramya Nam RN) 0709 (Given - Provider: Joanie Donovan, BREANNA)1213 (Given - Provider: Joanie Donovan RN)1716 (Given - Provider: Joanie Donovan RN)2116 (Given - Provider: Cheyenne Poon RN) 0652 (Given - Provider: Yuliet Galaviz RN)1131 (Given - Provider: Yuliet Galaviz RN) No Frequency Medication Order 06/12/2023 06/13/2023 06/14/2023 sterile water injection (COMPLETED) 1 dose, Starting on 06/12/23 at 0814, Until 06/12/23 at 0825, Makayla Leon: cabinet override, Makayla Leon: cabinet override 0825 (Given - Provider: Makayla Leon, RN) sterile water injection (COMPLETED) 1 dose, Starting on 06/12/23 at 2014, Until 06/12/23 at 2017, Ramya Nam: cabinet override, Ramya Nam: cabinet override 2016 (Given - Provider: Ramya Nam, BREANNA) Linked Groups Order Group 1: cefTRIAXone (ROCEPHIN) [...] BE BASED ON THE PRIMARY CLINICAL RECORDS. [employer] provides no warranty or guarantee of the accuracy or completeness of information in this document.
[2024-07-10 07:51] VITALS: BP 101/65; PULSE 87; TEMP 36.8; O2SAT 96
[2024-07-10 08:04] LABS: Glucometer 104 mg/dL (74-106)
[2024-07-10] MEDS: 0.9 % SODIUM CHLORIDE 500 ML IV (08:33)
[2024-07-10] MEDS: LIDOCAINE HCL 2% 400 MG/20 ML MDV 8 ML INJ (09:11)
[2024-07-10] MEDS: METHYLPREDNISOLONE ACETATE 40 MG/ML VIAL INJ (09:12)
[2024-07-10] MEDS: BUPIVACAINE HCL 0.25% PF 25 MG/10 ML VIAL 4 ML INJ (09:12)
[2024-07-10 09:17] VITALS: BP 112/97; PULSE 80; TEMP 36.8; O2SAT 96
[2024-07-10 09:20] VITALS: BP 93/52; PULSE 83; TEMP 36.8; O2SAT 95
--- NOTE | 2024-07-10 09:34 | W.PM.PROCNOT ---
Date of procedure: 07/10/24 Pre-op diagnosis: Lumbar spondylosis Post-op diagnosis: same as pre-op Procedure: Right Lumbar 4/5, 5/sacral 1 Radiofrequency ablation Under fluoroscopic guidance Rhizotomy was created using radio frequency ablation at 80?C for 90 seconds 1 to 2 lesions created at each site. Post lesioning injection of 2 mL each of 0.25% Marcaine and 2% lidocaine with Depo-Medrol 40mg. 0.5 to 1 mL injected at each site IV in place yes If Intravenous fluids: NS at KVO Anesthesia local 2% lidocaine for Anesthesia Other: MAC Timeout process compliant After informed consent obtained.Patient brought to the procedure room placed in the prone position skin overlying the area was prepped and draped in a sterile fashion using betadine. 25 gauge needle was used to create a skin wheal over each of the targeted areas utilizing 2% lidocaine. A rhizotomy needle with a 10 mm active tip was inserted over each of the anesthetized areas and directed towards each of the medial branches accomplished under fluoroscopic guidance. after encountering the same we had positive sensory stimulation, negative motor stimulation was noted. lesions were then created. Post lesioning, steroid solution was injected needles removed. Patient was transferred to recovery room in stable condition to be discharged home after meeting criteria. Anesthesia: MAC Surgeon: Jurgen Brady Condition: stable
== END 2024-07-10 09:40 | disposition home or self-care (01) ==
LOC: SURGOUT 07:40
PROVIDERS: Visit Provider Anesthesiology Pain Medicine
PROC: (CPT 1992; principal; 2024-07-10 08:30)
DX: M47.816 Spondylosis without myelopathy or radiculopathy, lumbar region (principal); Z90.710 Acquired absence of both cervix and uterus; G47.33 Obstructive sleep apnea (adult) (pediatric); E78.5 Hyperlipidemia, unspecified; I10 Essential (primary) hypertension; E11.9 Type 2 diabetes mellitus without complications; E07.9 Disorder of thyroid, unspecified; Z79.4 Long term (current) use of insulin; Z79.84 Long term (current) use of oral hypoglycemic drugs
CPT/HCPCS: 36415; 64635; 64636; 82948; J0665; J1010; J2704

== ENCOUNTER 2025-02-13 13:51 | Outpatient (OUT) | payer OTHER, SELFPAY ==
--- OUTSIDE RECORDS SUMMARY | 2024-01-11 10:30 | XMS_ITS ---
Author Organization [facility] Address [address] [place] [address] Care Team Providers Care Tax Services Manager Name Role Phone Might Ryder LUNA Primary Care Provider Unavailab alena Dominique Eric Unavailable [phone] Cristy Umaña Unavailable [phone] Allergies Allergen (clinical drug ingredient) Drug/Non Drug [...] Provider Speciality Nurse Prac titioner Referred Organization [facility] n Radiology Procedure 1 MRI Joint Upper Ext w/o Dye ([id number]) General Notes Mi Perdomo 05/2024 09:51:12 AM > AUTH IS PENDING WITH ESMER CASE# [id number], CLINICAL UPLOADEDSherin Amy 02/06/2024 08:25:57 AM >DENIED PER ESMER. REQUIRES SIX WEEKS PROVIDER DIRECTED TREATMENT. DETAILED DENIAL IN CHART Richelle MOHAMUD Monica 02/09/2024 12:34:10 PM > LEFT VM TO NOTIFY PATIENT. NEEDS 6 WEEKS PT Referral Priority Urgent REASON FOR VISIT LEFT SHOULDER AT [facility] Medications Medication SIG (Take, Route, Fr equency, [...] 01/11/2024 Encounters Encounter Location Date Provider Diagnosis [facility] [address] [place] [address] [place] [id number] 01/11/2024 Cristy [place] Pain, joint, shoulde r, left M25.512 Assessments [...] MRI : Shoulder W/O Contrast Left - [id number] 01/11/2024 Referrals Referral Date Details 02/02/2024 02/02/2024, DENIED MMOH NOT SCHED Obtain authorization for left shoulder MRI, Next Appt Details Follow Up: After MRI, Reason : Progress Notes * VIRGIL WARNERDOB: [birth year] (49 yo F)Acc No.[id number]:01/11/2024 Patient: VIRGIL BEAR Provider: Kenneth Umaña CNP :1975 A ge:48 Y S ex:Female Date:01/11/2024 Address:[address] [facility] [place], [id number] Pcp:CHERYL Mccray Subjective: * Chief Complaints: * L EFT SHOULDER AT [facility] * HPI: G eneral Info per Patient Report: Have you seen another doctor in this practice? N o. S luis enrique affected is L eft. J oint or body part affected is s houlder. S tart of Pain/Cause of Injury f all. P ain occurred i njury. W ork related: N o. M otor vehicle accident: N o. T hird republican responsibility: N o. Q uality of pain is m oderate, severe. T ype of pain: d ull, aching, throbbing. D o you have any dental problems??No. Patient presents today with complaints of left shoulder pain and weakness. She sustained a fall trying to catch herself with acute onset of pain. She had x- rays at the [facility] which were negative for fracture. She is [...] views of the left shoulder taken at [facility] reviewed and negative for acute fracture, [...] true * Provider: Kenneth Umaña CNP Date: 0 01/11/2024 Generated for Magda baker/Angela/Andree on: 0 02/13/2025 01:54 PM EDT History and Physical Notes * HPI (History of Present Illness) Category Sub-Category Detail Notes Category Not es General Info per Patient Report Side affected is Left Patient presents tod ay with complaints of left shoulder pain and weakness. She sustained a fall trying to catch herself with acute onset of pain. She had x-rays at the [facility] which were negative for fracture. She is still having problems and presents today for evaluation. Joint or body part affected is shoulder Pain occurred injury Work related: No Motor vehicle accident: No Quality of pain is moderate, severe Type of pain: dull, aching, throbb ing Have you seen another doctor in this pra ctice? No Start of Pain/Cause of Injury fall Third republican responsibility: No Do you have any dental [...] views of the left shoulder taken at [facility] reviewed and negative for acute fracture, [...]
--- OUTSIDE RECORDS SUMMARY | 2025-02-13 13:54 | XMS_ITS | Clinical Summary ---
Author Organization [facility] Address [address] [place], [place] [id number] Care Team Providers Care Machine Accountant Name Role Phone Juvenal Azevedo DPM Primary Care Provider Eric Darby Unavailable Unavailable Allergies Active Allergy Reactions Criticality Noted Date Comments Penicillins Rash 06/27/2009 Medications FLUTICASONE-SALM ETEROL 250 MCG-50 MCG/DOSE DISK DEVICE FOR INHALATION Take one(1) tablet two(2) times daily. 0 9 Active cyanocobalamin(B -12 DOTS 500 MCG TAB) Take one(1) tablet daily. 0 9 Active GLIPIZIDE 5 MG TAB Take one(1) tablet three times daily. 0 9 Active tramadol hcl(ULTRAM 50 MG TAB) Take one (1) or two(2) tablets every six(6) hours as needed for pain. 0 9 Active CODEINE-BUTALBIT AL-ACETAMINOPHEN -CAFFEINE 30 MG-50 MG-325 MG-40 MG CAP as necessary for pain 0 9 Active ropinirole hcl(REQUIP 0.25 MG TAB) Take one(1) tablet daily. 0 9 Active pregabalin(FEROZ A 75 MG CAP) Take one(1) tablet two(2) times daily. 0 9 Active bupropion hcl(BUDEPRION SR 150 MG TAB) Take one(1) tablet two(2) in morning 0 9 Active fluoxetine hcl(PROZAC 20 MG CAP) take 4 daily 0 9 Active insulin glargine,hum.rec .anlog(LANTUS SOLOSTAR 300 UNIT/3 ML SUB-Q INSULIN PEN) 30ml twice daily 0 9 Active losartan/hydroch lorothiazide(HYZ AAR 100 MG-25 MG TAB) Take one(1) tablet daily. 0 9 Active levothyroxine sodium(SYNTHROID 50 MCG TAB) Take one(1) tablet daily. 0 9 Active naproxen sodium(ALEVE 220 MG TAB) Take one(1) tablet daily. 0 9 Active ALBUTEROL 90 MCG/ACTUATION AEROSOL INHALER as necessary for pain 0 9 Active lidocaine(LIDODE RM 5 % (700 MG/PATCH) ADHESIVE PATCH) as necessary 0 9 Active diclofenac sodium(VOLTAREN 1 % TOPICAL GEL) four times daily 0 9 Active gabapentin(NEURO NTIN 300 MG CAP) Take 2 at bedtime, one at Am and one at afternoon 120 5 0 Active aspirin-calcium carbonate 81 mg-300 mg calcium(777 mg) tab Take 81 mg by mouth. Active atorvastatin (LIPITOR) 80 mg tablet take 1 tablet by mouth at bedtime 8 Active clotrimazole-bet amethasone (LOTRISONE) cream APPLY TWICE A DAY NEEDED FOR VULVAR ITCHING NOT TO EXCEED 6 WEEKS CONTINUOUS USAGE 8 Active Fenofibrate (LOFIBRA) 54 mg tablet take 1 tablet by mouth once daily 9 Active insulin lispro (HUMALOG) 200 unit/mL (3 mL) injection Inject 15 Units subcutaneously. 9 Active lisinopril (ZESTRIL, PRINIVIL) 10 mg tablet Take 10 mg by mouth. 6 Active loratadine 10 mg cap Take 10 mg by mouth. Active metoprolol succinate ER (TOPROL XL) 25 mg 24 hr tablet Take 25 mg by mouth. 9 Active montelukast (SINGULAIR) 10 mg tablet Take 10 mg by mouth. 9 Active Insulin [place], Disposable, (INSUPEN) 30 gauge x 02/08 ndle 1 Each. 9 Active MEDICATION, NON-DATABASE Apply to affected area. Homeopathic Products (PROSACEA EX) Active MEDICATION, NON-DATABASE Take 2 tablets by mouth. Misc Natural Products (OSTEO BI-FLEX ADV DOUBLE ST PO) Active multivit-min/iro n/folic acid/K (ADULTS MULTIVITAMIN ORAL) Take 1 tablet by mouth. Active tiZANidine HCl 4 mg capsule Take 4 mg by mouth daily at bedtime. Active dicyclomine (BENTYL) 20 mg tablet Take 20 mg by mouth three times daily. Active Active Problems Problem Noted Date Diagnosed Date Gastroparesis due to secondary diabetes 12/28/19 20 Social History Tobacco Use Types Packs/Day Years Used Date Smoking Tobacco: Every Day Cigarettes 2 10 Smokeless Tobacco: Never Alcohol Use Standard Drinks/Week Comments Not Currently 0 (1 standard drink = 0.6 oz pur e alcohol) Area Deprivation Index Answer Date Hussein rded National Score (1-100), lower number is lower ri sk Not on file 09/01/2020 State Score (1-10), lower number is lower risk N ot on file 09/01/2020 Data from: https://www.neighborhoodatlas.medicine.[facility].edu/. Last address used for calculation Not on file 09/01/2020 Comments No Sex and Gender Information Value Date Recorded Sex Assigned at Not on file Legal Sex Female 8:22 AM EST Gender Identity Not on file Sexual Orientation Not on file Last Filed Vital Signs Vital Sign Reading Time Taken Comments Blood Pressure 111/78 12/07/2019 10:59 AM EDT Pulse 86 12/07/2019 10:59 AM EDT Temperature 36.8 C (98.2 F) 12/07/2019 10:59 AM EDT Respiratory Rate - - Oxygen Saturation 95% 12/07/2019 10:59 AM EDT Inhaled Oxygen Concentration - - Weight 76.9 kg (169 lb 8 oz) 12/07/2019 10:59 AM EDT Height 167.6 cm (5' 6 ) 12/07/2019 10:59 AM EDT Body Mass Index 27.36 12/07/2019 10:59 AM EDT Plan of Treatment Health Maintenance Due Date Last Done Comments Anxiety Screening 1991 Depression Screening 1991 HIV Screening 1991 Hepatitis C Screening 1991 DTaP,Tdap,Td Vaccine (1 - Tdap) 02/29/1992 Hepatitis B Vaccine (1 of 3 - 19+ 3-dose series) 02/29/1992 Cervical Cancer Screening [address] Colonography 2018 Cologuard (FIT-DNA) 2018 Colonoscopy 2018 Colorectal Cancer Screening 2018 Fecal Occult Blood 2018 Sigmoidoscopy 2018 Diabetes Screening 10/18/2022 10/18/2019, 1 , 07/20/2019, Additional history exists Pneumococcal Vaccine: 50+ (2 of 2 - PCV) 2023 05/10/2018 Shingrix Vaccine (1 of 2) 2023 Covid-19 Vaccine (1 - 2023-2 5 season) 2024 Lipid Screening 06/04/2024 06/04/2019, 08/21/2018 Influenza Vaccine (Season Ended) 2025 06/11/2019, 08/24/2018, 07/09/2015, Additional history exists Insurance [employer] P[employer] Care Teams Machine Accountant Relationship Specialty Start Date End Date Juvenal Azevedo DPM PCP - General 06/17/09 Eric Darby Gastroenterology 05/21/19
--- OUTSIDE RECORDS SUMMARY | 2025-02-13 13:54 | XMS_ITS | Encounter Summary ---
Author Organization [facility] Address [address] [place], [place] [id number] Care Team Providers Care Calender Feeder Name Role Phone Juvenal Azevedo DPM Primary Care Provider Eric Darby Unavailable Unavailable Source Comments In the event this information is protected by the Federal Confidentiality of Alcohol and Drug AbusePatient Records regulations: The Federal rules restrict any use of the information to criminally investigate or prosecute any alcohol or drug abuse patient.[facility] Encounter Details Date Type Department Care Team (Late st Contact Info) Description 07/12/2019 Patient Msg Medical Records [address] [place], [place] [id number] Provider, [facility] Prescribed Patient Education Video(s) Social History Tobacco Use Types Packs/Day Years Used Date Smoking Tobacco: Former Cigarettes 1 10 1 - 06/27/2000 Alcohol Use Standard Drinks/Week Comments Not Asked 0 (1 standard drink = 0.6 oz pur e alcohol) Comments No Sex and Gender Information Value Date Recorded Sex Assigned at Not on file Legal Sex Female 8:22 AM EST Gender Identity Not on file Sexual Orientation Not on file documented as of this encounter Plan of Treatment Not on file documented as of this encounter Visit Diagnoses Not on filedocumented in this encounter Care Teams Calender Feeder Relationship Specialty Start Date End Date Juvenal Azevedo DPM PCP - General 06/17/09 Eric Darby Gastroenterology 05/21/19 documented as of this encounter
--- OUTSIDE RECORDS SUMMARY | 2025-02-13 13:55 | XMS_ITS | Patient Health Record ---
Author Organization [facility] Address [address] [place] [address] Care Team Providers Care Associate Professor Of Psychology Name Role Phone Might Ryder LUNA Primary Care Provider Scooby Wick Eric Unavailable [phone] Allergies Allergen (clinical drug ingredient) Drug/Non Drug Allergy documented on EMR Reaction Allergy Type Onset Date Status penicillin (uncoded) hives Allergy Active Reason For Referral No Information Medications Medication SIG (Take, Route, Fr equency, Duration) Notes Start Date End Date Status atorvastatin Active aspirin Active DULoxetine Active albuterol Active baclofen Active estradiol Active gabapentin Active lisinopril Active Lasix Active Flonase Allergy Relief Active diclofenac Active rOPINIRole Active Tylenol Active traMADol Active HumaLOG Active metoprolol Active fenofibrate Active Social History Tobacco Use: Social History [...] Pain, joint, shoulder, left (M25.512) Active confirmed Encounters Encounter Location Date Provider Diagnosis [facility] [address] [place] [address] DR [facility] [address] [place] [id number] 2024 Eric Dominique Pain, joint, shoulder, left M25.512 Assessments Encounter Date Diagnosis (ICD Code) Assessment Notes Treatment Notes Treatment Clinical Notes Section Notes 2024 Pain, joint, shoulder, left (ICD-10 - M25.512) Plan Of Treatment Pending Test Test Name Order Date MRI : Shoulder W/O Contrast Left - [id number] 01/11/2024 PT 2024 Insurance Providers Payer Name Payer Address Payer Phone Subscriber Number Group Number Insured Name Patient Relationship to Insured Coverage Start Date Coverage End Date [employer] [address] [address] [place] [phone] [id number] VIRGIL WARNER Self - patient is the insured Medical (General) History Medical History History ICD Code Asthma/COPD Respiratory problems: Heart problems: Diabetes GI Problems: High Blood Pressure Depression Kidney trouble Sleep apnea CPAP Machine: Yes Do you use the CPAP machine? Yes Drug Allergies Surgical History Surgery Date(Month/Year) Spinal stimulator Right shoulder
--- OUTSIDE RECORDS SUMMARY | 2025-02-13 13:55 | XMS_ITS | Clinical Summary ---
[facility] Address [id number] [place] [address] Care Team Providers Care Police Department Secretary Name Role Phone Unavailable Primary Care Provider Unavailabl e Social History Tobacco Use Types Packs/Day Years Used Date Smoking Tobacco: Never Assessed Childcare Answer Date Recorded Childcare Unknown 03/07/2019 Employment Answer Date Recorded Employment Unknown 03/07/2019 Comments Unknown Sex and Gender Information Value Date Recorded Sex Assigned at Not on file Legal Sex Female 12:04 PM EDT Gender Identity Not on file Sexual Orientation Not on file Plan of Treatment Not on file Medical Devices Not on file
--- OUTSIDE RECORDS SUMMARY | 2025-02-13 14:03 | XMS_ITS | CCD ---
Author Organization [facility] Care Team Providers Care Store Stock Associate Name Role Phone Might, Vivian Combs Primary Care Provider MIGHT, VIVIAN W Primary Care Unavailable CLAUDIA WILLETT Referring Unavailable Might SENIOR ARCHITECT/DESIGN MANAGER - HOME CARE MANAGER, Vivian W Primary Care Provider Might SENIOR ARCHITECT/DESIGN MANAGER - HOME CARE MANAGER, Vivian W Primary Care Provider Might SENIOR ARCHITECT/DESIGN MANAGER - HOME CARE MANAGER, Vivian W Primary Care Provider Might SENIOR ARCHITECT/DESIGN MANAGER - HOME CARE MANAGER, Vivian W Primary Care Provider Might SENIOR ARCHITECT/DESIGN MANAGER - HOME CARE MANAGER, Vivian W Primary Care Provider Might SENIOR ARCHITECT/DESIGN MANAGER - HOME CARE MANAGER, Vivian W Primary Care Provider NON STAFF [...] Sherman Attending Unavailable Shiraz Sherman Unavailable YUMIKO ., DR COREY Bautista Attending Unavailable YUMIKO ., DR COREY Bautista Admitting Unavailable MISC, DR GAFFNEY Primary Care Unavailable MISC, DR GAFFNEY Consulting Unavailable DR COREY KHANNA Consulting Unavailable AGUBHUGO PITTMANUEL Consulting Unavailable MISC, DR GAFFNEY Primary Care Unavailable YUMIKO Tomlinson, DR COREY Bautista Attending Unavailable YUMIKO Tomlinson, DR COREY Bautista Admitting Unavailable YUMIKO Tomlinson, DR COREY Bautista Consulting Unavailable SHARP, MAXIM [...] vailable MISC, DR GAFFNEY Primary Care Unavailable [address], DR PHILLIP Reilly Consulting Unavailable LAKSHMIPATHY ., NARRADHAATH Consulting Kateryna vailable MISC, DR GAFFNEY Primary [...] ., DR COREY Bautista Admitting Unavailable CLEMENTS ., KEILY Consulting Unavailable MISC, DR GAFFNEY Primary Care Unavailable CLEVELAND ., DR COREY Bautista Attending Unavailable CLEVELAND ., DR COREY Bautista Admitting Unavailable CLEVELAND ., DR COREY Bautista Consulting Unavailable VERN THORPE Consulting Unavailable Might SENIOR ARCHITECT/DESIGN MANAGER - HOME CARE MANAGER, Vivian Combs Primary Care Provider Might SENIOR ARCHITECT/DESIGN MANAGER - Vivian SU Primary Care Provider VIVIAN OSEGUERA Primary Care Unavailable MEENA MIKEASE A Referring Unavailable [facility] VIVIAN Primary Care Unavailable RAMIRO, RICKY Consulting Unavailable MIKE, KHASE A Attending Unavailable MIKE, KHASE A Admitting Unavailable RASHID, KHASE A Admitting Unavailable VIVIAN OSEGUERA Primary Care Unavailable RAMIRO, RICKY Consulting Unavailable MIKE, KHASE A Attending Unavailable RASHID, KHASE A Admitting Unavailable VIVIAN OSEGUERA Primary Care Unavailable ROSEANN MACIAS Referring Unavailable MIKE, KHASE A Attending Unavailable Chiquis SENIOR ARCHITECT/DESIGN MANAGER-Rolan SU Attending Unavailab le Might SENIOR ARCHITECT/DESIGN MANAGER-[facility] Un available Might SENIOR ARCHITECT/DESIGN MANAGER-HOME CARE MANAGER, [facility] Un available Chiquis SENIOR ARCHITECT/DESIGN MANAGER-Rolan SU Attending Unavailab le Might SENIOR ARCHITECT/DESIGN MANAGER-HOME CARE MANAGER, [facility] Un available Chiquis SENIOR ARCHITECT/DESIGN MANAGER-HOME CARE MANAGER, Rolan Grier Attending Unavailab le Might SENIOR ARCHITECT/DESIGN MANAGER-[facility], [facility] Un available Chiquis SENIOR ARCHITECT/DESIGN MANAGER-HOME CARE MANAGER, Rolan Grier Attending Unavailab le Might SENIOR ARCHITECT/DESIGN MANAGER-[facility], [facility] Un available [place] SENIOR ARCHITECT/DESIGN MANAGER-HOME CARE MANAGER, Rolan Grier Attending Unavailab le Might SENIOR ARCHITECT/DESIGN MANAGER-[facility], [facility] Un available Jez MULLEN, Andrius Vytautas Attending Unavailable MIGHT, VIVIAN W Primary Care Unavailable ROLAN SIM Referring Unavailable MIGHT, VIVIAN W Primary Care Unavailable MIGHT, VIVIAN W Primary Care Unavailable MIGHT, VIVIAN W Primary Care Unavailable MIGHT, VIVIAN W Referring Unavailable MIGHT, VIVIAN W Primary Care Unavailable MIGHT, VIVIAN W Primary Care Unavailable BARBARA MCGHEE Referring Unavail able MIGHT, VIVIAN W Primary Care Unavailable MIKE, KHASE A Referring Unavailable MIGHT, VIVIAN W Primary Care Unavailable MIGHT, VIVIAN W Primary Care Unavailable MIGHT, VIVIAN W Primary Care Unavailable MIGHT, VIVIAN W Primary Care Unavailable MIGHT, VIVIAN W Primary Care Unavailable MIGHT, VIVIAN W Primary Care Unavailable MIGHT, VIVIAN W Primary Care Unavailable MIGHT, VIVIAN W Primary Care Unavailable SAM HIDALGO Referring Unavailable MIGHT, VIVIAN W Primary Care Unavailable MIGHT, VIVIAN W Primary Care Unavailable MIGHT, VIVIAN W Primary Care Unavailable MIGHT, VIVIAN W Primary Care Unavailable MIKE, KHASE A Referring Unavailable MIGHT, VIVIAN W Primary Care Unavailable MIGHT, VIVIAN W Primary Care Unavailable ROLAN SIM Referring Unavailable MIGHT, VIVIAN W Primary Care Unavailable MIKE, KHASE A Referring Unavailable MIKE, KHASE A Referring Unavailable MIGHT, VIVIAN W Primary Care Unavailable MIGHT, VIVIAN W Primary Care Unavailable MIKE, KHASE A Referring Unavailable MIGHT, VIVIAN W Primary Care Unavailable MIKE, KHASE A Referring Unavailable MIGHT, VIVIAN W Primary Care Unavailable MIKE, KHASE A Referring Unavailable MIGHT, VIVIAN W Primary Care Unavailable MIKE, KHASE A Referring Unavailable MIGHT, VIVIAN W Primary Care Unavailable MIKE, KHASE A Referring Unavailable MIGHT, VIVIAN W Primary Care Unavailable MIKE, KHASE A Referring Unavailable MIGHT, VIVIAN W Primary Care Unavailable MIKE, KHASE A Referring Unavailable MIGHT, VIVIAN W Primary Care Unavailable MIKE, KHASE A Referring Unavailable MIGHT, VIVIAN W Primary Care Unavailable MIKE, KHASE A Referring Unavailable MIGHT, VIVIAN W Primary Care Unavailable MIKE, KHASE A Referring Unavailable MIGHT, VIVIAN W Primary Care Unavailable MIKE, KHASE A Referring Unavailable MIGHT, VIVIAN W Primary Care Unavailable MIGHT, VIVIAN W Referring Unavailable KARIME PATEL Attending Unavailable MIGHT, VIVIAN W Primary Care Unavailable MIGHT, VIVIAN W Primary Care Unavailable ROLAN SIM Referring Unavailable MIGHT, VIVIAN W Primary Care Unavailable ROLAN SIM Referring Unavailable MIGHT, VIVIAN W Primary Care Unavailable MIGHT, VIVIAN W Primary Care Unavailable MIGHT, VIVIAN W Referring Unavailable MIGHT, VIVIAN W Primary Care Unavailable MIGHT, VIVIAN W Primary Care Unavailable SHARON TRUJILLO Referring Unavailable MIKE, KHASE A Referring Unavailable MIGHT, VIVIAN W Primary Care Unavailable MIKE, KHASE A Referring Unavailable MIGHT, VIVIAN W Primary Care Unavailable MIKE, KHASE A Consulting Unavailable STACY AWAN Attending Unavailable MIGHT, VIVIAN W Primary Care Unavailable MIKE, KHASE A Referring Unavailable MIGHT, VIVIAN W Primary Care Unavailable MIKE, KHASE A Referring Unavailable MIGHT, VIVIAN W Primary Care Unavailable MIKE, KHASE A Referring Unavailable MIGHT, VIVIAN W Primary Care Unavailable MIKE, KHASE A Referring Unavailable MIGHT, VIVIAN W Primary Care Unavailable Allergies Allergy Classification Reported Allergen(s) Allergy Type Date of Onset Reaction(s) Facility Penicillins (antibiotic) (10 sources) Penicillins Drug Allergy 3 [facility] (20 sources) Penicillins Propensity to adverse reactions to drug 3 [place] (20 sources) Penicillins Propensity to adverse reactions to drug 3 [facility] (1 source) Penicillins Drug allergy (disorder) 2 [facility] Repository (2 sources) penicillAMINE Drug Allergy Unknown [employer] Other (1 source) Penicillins Drug allergy (disorder) 6 [facility] Repository (1 source) Penicillin; Translations: [penicillin] Drug Allergy [facility] Repository Medications Current Medications Medication Drug Class(es) Dates Sig (Normalized) Sig (Original) Acetaminophen (20 sources) Start: 09-14-2024 acetaminophen (TYLENOL) tablet 650 mg Start: 09-14-2024 1,000 mg, Oral , ONCE, 1 dose, On Tue09/14/24 at 0630, Administer 60 minutes prior to surgery., Pre-op (day of surgery) Start: 07-26-2024 End: 08-09-2024 take 1 tablet by mouth three times daily acetaminophen (TYLENOL) 500 MG tablet Take 1 tablet by mouth 3 times daily for 14 days 42 tablet 07/26/2024 Active Start: 07-26-2024 1,000 mg, Oral , EVERY 8 HOURS PRN, Starting on Olena 07/26/24 at 1319, Until Discontinued, Pain Mild (1-3), Maximum dose of acetaminophen is 4000 mg from all sources in 24 hours. Start: 07-23-2024 1,000 mg, Oral , ONCE, 1 dose, On 07/23/24 at 1245, Administer 60 minutes prior to surgery., Pre-op (day of surgery) Start: 06-11-2023 acetaminophen (TYLENOL) tablet 650 mg End: 07-26-2024 take 1 tablet by mouth every six hours as needed for pain acetaminophen (TYLENOL) 500 MG tablet Take 1 tablet by mouth every 6 hours as needed for Pain 07/26/2024 Discontinued (Stop Taking at Discharge) acetaminophen 325 mg / HYDROcodone bitartrate 5 mg oral tablet (20 sources) Opioid Agonist Start: 09-14-2024 End: 09-21-2024 HYDROcodone-acetaminophen (NORCO) 5-325 MG per tablet Indications: Post-op pain Take 1 tablet by mouth every 6 hours as needed for Pain for up to 7 days. Intended supply: 5 days. Take lowest dose possible to manage pain Max Daily Amount: 4 tablets 28 tablet 09/14/2024 09/21/2024 Active Start: 07-18-2024 End: 07-26-2024 HYDROcodone-acetaminophen (N ORCO) 5-325 MG per tablet Indications: Closed dislocation of tarsal joint of left foot, initial encounter , Charcot ankle, left Take 1 tablet by mouth every 4 hours as needed for Pain for up to 5 days. Intended supply: 5 days. Take lowest dose possible to manage pain Max Daily Amount: 6 tablets 30 tablet 07/18/2024 07/26/2024 Discontinued (Stop Taking at Discharge) Start: 08-06-2022 End: 08-06-2022 HYDROcodone-acetaminophen (N ORCO) 5-325 MG per tablet 1 tablet Start: 04-23-2022 take 1 tablet by fermin twice daily Hydrocodone-Acetaminophen Active 1 TAB P O Twice daily September 21, 2022 12:00am HYDROcodone-Acet aminophen 5-325 MG Oral for 30 Days Active acetaminophen 325 mg / oxyCODONE hydrochloride 5 mg oral tablet (2 sources) Opioid Agonist Start: 07-26-2024 End: 08-03-2024 oxyCODONE-acetaminophen (PERCOCET) 5-325 MG per tablet Indications: Post-op pain Take 1 tablet by mouth in the morning and at bedtime for 8 days. Intended supply: 5 days. Take lowest dose possible to manage pain Max Daily Amount: 2 tablets 16 tablet 07/26/2024 08/03/2024 Active Start: 07-24-2024 oxyCODONE-acet aminophen (PERCOCET) 5-325 MG per tablet 1 tablet [id number] 200 actuat albuter ol 0.09 mg/actuat metered dose inhaler (20 sources) beta2-Adrenergic Agonist Start: 09-14-2024 Start: 07-25-2024 take 2 puff(s) by mo uth four times daily as needed for wheezing albuterol sulfate HFA (PROVENTIL;VENTOLIN;PROAIR) 108 (90 Base) MCG/ACT inhaler Indications: Acute bronchitis, unspecified organism INHALE 2 PUFFS BY MOUTH INTO THE LUNGS 4 TIMES DAILY NEEDED FOR WHEEZING 9 g 2 07/25/2024 Active Start: 07-23-2024 Start: 05-09-2024 End: 07-25-2024 take 2 puff(s) by mouth four times daily for wheezing albuterol sulfate HFA (PROVENTIL;VENTOLIN;PROAIR) 108 (90 Base) MCG/ACT inhaler Indications: Acute bronchitis, unspecified organism inhale 2 puffs by mouth and INTO THE LUNGS four times a day if needed for wheezing 8.5 g 2 05/09/2024 07/25/2024 Discontinued Start: 08-24-2023 take 2 puff(s) by mo uth four [...] Nebulization, EVERY 2 HOURS PRN, Starting on 9/16/23 at 0043, Until 06/11/23 at 0345, Wheezing [...] Dose aluminum chloride 200 mg/ml topical solution (13 sources) Start: 09-28-2023 aluminum chlor luis enrique (DRYSOL) 20 % external solution Indications: Gustatory sweating Apply topically nightly. 60 mL 2 09/28/2023 Active atorvastatin 80 mg oral tablet (20 sources) HMG-CoA Reductase Inhibitor Start: 09-11-2024 take 1 tablet by mouth once daily atorvastatin (LIPITOR) 80 MG tablet Take 1 tablet by mouth daily 09/11/2024 Active Start: 05-16-2024 take 40 mg by mouth once daily 40 mg, Oral, NIGHTLY, First dose on Tue09/14/24 at 2245, Until Discontinued Start: 06-11-2023 take 80 mg by mouth [...] Start: 12-08-2022 lactated ringers IV soln infusion ceFAZolin (ANCEF) 2000 mg in 20 mL IV syringe (2 sources) Start: 09-14-2024 2,000 mg, IntraVENous, EVERY 8 HOURS, First dose on Tue09/14/24 at 1600, Administer over 5 mins. Start: 07-24-2024 2,000 mg, Intr aVENous, EVERY 8 HOURS, First dose on Tue07/24/24 at 0000, Administer over 5 mins. cefdinir 300 mg oral capsule (1 source) [...] Start: 09-16-2020 take 1 capsule by mo [facility] twice daily celecoxib (CELEBREX) 100 MG capsule Indications: Multiple joint pain Take 1 capsule by mouth 2 times daily 180 capsule 1 09/16/2020 Active cholecalciferol 0.025 mg oral tablet (1 source) Vitamin D Start: 09-14-2024 End: 09-21-2024 5,000 Units, Oral, DAILY, 7 doses, First dose on Tue09/14/24 at 1400, Last dose on Tue09/20/24 at 0900, Labeling may look different. 25 [id number] Units. Please double check dosages. ciprofloxacin 3 mg/ml / dexamethasone 1 mg/ml otic suspension (3 sources) Corticosteroid, Quinolone Antimicrobial Start: 01-17-2025 End: 01-27-2025 ciprofloxacin-dexAM ETHasone (CIPRODEX) 0.3-0.1 % otic suspension Indications: Acute diffuse otitis externa of both ears Place 4 drops into both ears 2 times daily for 10 days 7.5 mL 01/17/2025 01/27/2025 Active codeine phosphate 2 mg/ml / guaiFENesin 20 [...] (FREESTYLE KENA 14 DAY SENSOR) MISC 01/28/2021 Suspended Start: 01-28-2021 Continuous Blo od Gluc Sensor (FREESTYLE KENA 14 DAY SENSOR) MISC 01/28/2021 Active Start: 01-28-2021 Continuous Blo od Gluc Sensor (FREESTYLE KENA 14 DAY SENSOR) MISC Start: 01-28-2021 Continuous Blo od Gluc Sensor (FREESTYLE KENA 14 DAY SENSOR) [facility] apply 1 SENSOR TO THE BACK OF UPPER ARM REMOVE AND REPLACE every ... (REFER TO PRESCRIPTION NOTES). 0 01/28/2021 Active CPAP Machine MISC (20 sources) CPAP Machine MIS C by Does not apply route Suspended CPAP Machine MIS C by Does not [...] oral tablet (20 sources) Tetracycline-class Drug Start: 11-28-2024 End: 12-08-2024 take 1 tablet by mouth twice daily doxycycline hyclate (VIBRA-TABS) 100 MG tablet Indications: Acute recurrent pansinusitis Take 1 tablet by mouth 2 times daily for 10 days 20 tablet 11/28/2024 12/08/2024 Active Start: 09-15-2024 End: 09-22-2024 take 1 tablet by mouth twice daily doxycycline hyclate (VIBRA-TABS) 100 MG tablet Take 1 tablet by mouth 2 times daily for 7 days 14 tablet 09/15/2024 09/22/2024 Active Start: 07-26-2024 End: 08-05-2024 take 1 tablet by mouth once daily doxycycline hyclate (VIBRA-TABS) 100 MG tablet Take 1 tablet by mouth daily for 10 days 10 tablet 07/26/2024 08/05/2024 Active Start: 09-23-2022 End: 10-03-2022 take 1 tablet [...] Start: 07-02-2020 take 1 capsule by mo [facility] once daily in the evening DULoxetine (CYMBALTA) 30 MG extended release capsule take 1 capsule by mouth every evening 0 07/02/2020 Active empagliflozin 10 mg oral tablet (20 sources) Sodium-Glucose Cotransporter 2 Inhibitor Start: 06-12-2024 JARDIANCE 10 MG tablet 06/12/2024 Active Start: 06-12-2024 JARDIANCE 10 M G tablet 06/12/2024 Active Start: 06-11-2023 take 10 [...] 09/23/2022 Active estradiol 1 mg oral tablet (13 sources) Estrogen Start: 12-06-2023 take 1 tablet by mouth once daily estradiol (ESTRACE) 1 MG tablet Take 1 tablet by mouth daily 30 tablet 3 12/06/2023 Active fluocinonide 0.5 mg/ml topical cream (1 [...] Active Start: 04-23-2019 take 1 capsule by [facility] once daily FLUoxetine (PROZAC) 40 MG capsule take 1 capsule by mouth once daily 90 capsule 1 04/23/2019 Active fluticasone propionate 0.05 mg/actuat metered dose nasal spray (20 sources) Corticosteroid Start: 09-28-2024 take 2 spray(s) nasal route once daily fluticasone (FLONASE) 50 MCG/ACT nasal spray Indications: Seasonal allergic rhinitis due to pollen Use 2 spray(s) in each nostril once daily 16 g 5 09/28/2024 Active Start: 07-24-2024 take 2 spray(s) nasa l route once daily as needed 2 spray, Each Nostril, NIGHTLY PRN, Starting on Tue07/24/24 at 1145, Until Discontinued, Rhinitis Start: 09-23-2023 take 2 spray(s) nasa l route once [...] hypertension , Tobacco abuse , Mixed hyperlipidemia , SOB (shortness of breath) , Bilateral leg edema Take 1 tablet by mouth daily 90 tablet 3 07/05/2024 Active Start: 05-16-2023 End: 05-15-2024 take 1 [...] mouth daily 90 tablet 1 03/24/2022 Active glipiZIDE er 10 mg 24 hr extended release oral tablet (20 sources) Sulfonylurea Start: 12-31-2019 take 2 tablets by mouth once daily glipiZIDE (GLUCOTROL XL) 10 MG extended release tablet Indications: Diabetes mellitus type 2 with complications, uncontrolled (HCC) Take 2 tablets by mouth daily 180 tablet 1 12/31/2019 Active Start: 09-10-2019 take 2 tablets by mo [facility] once daily glipiZIDE (GLUCOTROL XL) 10 [...] mouth daily 60 tablet 3 05/09/2019 Active glucagon (rdna) 1 mg injection (4 sources) Antihypoglycemic Agent Start: 09-14-2024 1 mg, S ubCUTAneous, PRN, Starting on Tue09/14/24 at 1622, Until Discontinued, Low blood sugar, Blood glucose LESS THAN 70 mg/dL and patient NOT ALERT or NPO and does not have IV access., After administration, attempt intravenous access and start dextrose 10% at 100 mL/hr. Repeat blood glucose in 15 minutes x 2 and notify provider. Reconstitute powder for injection by adding 1 mL of telecommunication equipment repairer-supplied sterile diluent or sterile water for injection to a vial containing 1 mg of the drug, to provide solutions containing 1 mg/mL. Shake vial gently to dissolve. Start: 07-23-2024 Start: 06-11-2023 take 1 mL intravenously every [...] 15 minutes x 2 and notify provider. Glucose (12 sources) Start: 09-14-2024 IntraVENous, a t 100 mL/hr, CONTINUOUS PRN, if blood glucose remains LESS THAN 70 mg/dL after 2 dextrose 10% intravenous boluses or administration of glucagon, Starting on Tue09/14/24 at 1622, If blood glucose fails to stabilize after 2 dextrose 10% intravenous boluses or glucagon administration, start dextrose 10% infusion at 100 mL/hour and repeat blood glucose at 30 and 60 minutes. If blood glucose is GREATER THAN 70 mg/dL after 60 minutes, discontinue dextrose 10% infusion. Start: 09-14-2024 dextrose bolus 10% 125 mL Start: 09-14-2024 16 g (4 tablet ), Oral, PRN, Starting on Tue09/14/24 at 1622, Until Discontinued, Low blood sugar, If blood glucose is LESS THAN 70 mg/dL and patient is alert and tolerating oral. Give 4 tablets (16g) Repeat blood glucose in 15 minutes. If blood glucose is LESS THAN 70 mg/dL, repeat treatment and recheck blood glucose in 15 minutes x 2. If blood glucose remains LESS THAN 70 mg/dL, notify provider. Start: 07-23-2024 Start: 07-23-2024 dextrose bolus 10% 125 mL Start: 07-23-2024 Start: 06-11-2023 dextrose bolus 10% 125 mL [...] Products (PROSACEA EX) Apply topically 0 Active hydrocortisone 10 mg/ml / neomycin 3.5 mg/ml / polymyxin b [id number] unt/ml otic solution (3 sources) Aminoglycoside Antibacterial, Polymyxin-class Antibacterial, Corticosteroid Start: 11-28-2024 End: 12-08-2024 neomycin-polymyxi n-hydrocortisone (CORTISPORIN) 3.5-40149-[address] 4 drops into the left ear 3 times daily for 10 days 10 mL 11/28/2024 12/08/2024 Active 3 ml insulin lispro 200 unt/ml pen injector (20 sources) Insulin Analog Start: 11-08-2024 HUMALOG KWIKPEN 200 UNIT/ML SOPN pen 11/08/2024 Active Start: 09-14-2024 End: 09-15-2024 0-16 Units, SubCUTAneous, 4 TIMES DAILY BEFORE MEALS & NIGHTLY, First dose on Tue09/15/24 at 1700, Until Discontinued, High Dose Corrective Algorithm Glucose: Dose: 70-179 No Insulin 180-249 4 Units 250-299 8 Units 300-349 12 Units Over 349 16 Units and notify physician Administer as soon as possible within 60 minutes of last blood glucose check Start: 07-24-2024 inject 60 [IU] by del real bcutaneous injection three times daily at mealtime 60 Units, SubCUTAneous, 3 TIMES DAILY WITH MEALS, First dose on Tue07/24/24 at 0215, Until Discontinued Start: 07-24-2024 5 Units, SubCU TAneous, ONCE, 1 dose, On Tue07/24/24 at 0030 Start: 07-23-2024 0-4 Units, Sub CUTAneous, 4 TIMES DAILY BEFORE MEALS & NIGHTLY, First dose on 07/23/24 at 2330, Until Discontinued, Corrective Low Dose Algorithm Glucose: Dose: 70-179 No Insulin 180-249 1 Unit 250-299 2 Units 300-349 3 Units Over 349 4 Units and notify physician Administer as soon as possible within 60 minutes of last blood glucose check Start: 06-11-2023 End: 06-11-2023 inject 15 [IU] [...] tablet (20 sources) Histamine-1 Receptor Antagonist Start: 09-28-2024 take 1 tablet by mouth in the evening levocetirizine (XYZAL) 5 MG tablet Indications: Seasonal allergic rhinitis due to pollen Take 1 tablet by mouth in the evening 31 tablet 5 09/28/2024 Active Start: 09-23-2023 take 1 tablet by fermin th once [...] 10 mg by mouth daily 0 Active 50 ml magnesium sulfate 40 mg/ml injection (2 sources) Start: 09-14-2024 2,000 mg, IntraVENous, at 25 mL/hr, Administer over 2 Hours, PRN, Other, Magnesium Replacement, Starting on Tue09/14/24 at 1124, Mag Lab Replacement Action 1.4-1.6 mg/dL 2,000 mg Total Dose Given as 1,000 mg IVPB x 2 doses or 2,000 mg IVPB x 1 dose 1.0-1.3 mg/dL 4,000 mg Total Dose Given as 1,000 mg IVPB x 4 doses or 2,000 mg IVPB x 2 doses Less than 1.0 mg/dL CALL PHYSICIAN and give 4,000 mg Total Dose Given as 1,000 mg IVPB x 4 doses or 2,000 mg IVPB x 2 doses Infuse at 1,000 mg/hr Repeat Mag level 1 hour after final administration Protocol not for use in Patients with CrCl less than 30ml/min Start: 07-23-2024 2,000 mg, Intr aVENous, at 25 mL/hr, Administer over 2 Hours, PRN, Other, Magnesium Replacement, Starting on 07/23/24 at 1845, Mag Lab Replacement Action 1.4-1.6 mg/dL 2,000 mg Total Dose Given as 1,000 mg IVPB x 2 doses or 2,000 mg IVPB x 1 dose 1.0-1.3 mg/dL 4,000 mg Total Dose Given as 1,000 mg IVPB x 4 doses or 2,000 mg IVPB x 2 doses Less than 1.0 mg/dL CALL PHYSICIAN and give 4,000 mg Total Dose Given as 1,000 mg IVPB x 4 doses or 2,000 mg IVPB x 2 doses Infuse at 1,000 mg/hr Repeat Mag level 1 hour after final administration Protocol not for use in Patients with CrCl less than 30ml/min meclizine hydrochloride 25 mg oral tablet (2 sources) Antiemetic Start: 07-13-2019 End: 07-23-2019 take 1 tablet by mouth three times daily as needed for dizziness meclizine (ANTIVERT) 25 MG tablet Indications: Vertigo Take 1 tablet by mouth 3 times daily as needed for Dizziness 30 tablet 0 07/13/2019 07/23/2019 Active methylPREDNISolone 4 mg oral tablet (3 sources) Corticosteroid Start: 06-21-2024 methylPREDNISolone (MEDROL DOSEPACK) 4 MG tablet TAKE BY MOUTH DIRECTED ON INSIDE OF PACKAGE 06/21/2024 Active Start: 06-11-2023 methylPREDNISo lone sodium succ (SOLU-MEDROL) injection 40 mg 24 hr metoprolol succinate 25 mg extended release oral tablet (20 sources) beta-Adrenergic Tana Start: 11-13-2024 take 1 tablet by mouth once daily in the evening metoprolol succinate (TOPROL XL) 25 MG extended release tablet Take 1 tablet by mouth every evening 90 tablet 3 11/13/2024 Active Start: 11-13-2024 take 1 tablet by fermin th once daily before breakfast metoprolol succinate (TOPROL XL) 50 MG extended release tablet Indications: History of syncope , Essential hypertension , Tobacco abuse , Mixed hyperlipidemia , SOB (shortness of breath) , Bilateral leg edema Take 1 tablet by mouth every morning (before breakfast) 90 tablet 3 11/13/2024 Active Start: 07-31-2024 take 1 tablet by fermin th in the evening metoprolol succinate (TOPROL XL) 25 MG extended release tablet Take 1 tablet by mouth in the evening 90 tablet 3 07/31/2024 Active Start: 07-24-2024 take 75 mg by mouth once daily 75 mg, Oral, DAILY, First dose on Tue07/24/24 at 0900, Until Discontinued, Do not crush or chew. Start: 07-05-2024 take 1 tablet by fermin th once daily metoprolol succinate (TOPROL XL) 50 MG extended release tablet Indications: History of syncope , Essential hypertension , Tobacco abuse , Mixed hyperlipidemia , SOB (shortness of breath) , Bilateral leg edema Take 1 tablet by mouth daily 90 tablet 3 07/05/2024 Active Start: 08-04-2023 take 1 tablet by fermin th once daily, then take 1 tablet by [...] by mouth every other day 0 Active Naloxone (20 sources) Opioid Antagonist Start: 024 Naloxone HCl (NARCAN IJ) by Nasal route 07/04/2024 Active Start: 07-04-2024 naloxone 4 MG/ 0.1ML LIQD nasal spray 07/04/2024 Active 24 hr nicotine 0.583 mg/hr transdermal system (17 sources) Cholinergic Nicotinic Agonist Start: 09-14-2024 apply 1 dose transdermal route once daily at bedtime 1 patch, TransDERmal, Administer over 24 Hours, DAILY, First dose on Tue09/14/24 at 1145, Apply new patch to nonhairy, clean, dry skin on the upper body or upper outer arm. Rotate patch sites. Notify pharmacy if patient or provider prefers patch to be removed at bedtime and replaced in the morning. Hazardous Medication -- Refer to facility policy for handling and disposal. Start: 01-23-2020 nicotine (PATTY TROL) 10 MG inhaler Indications: Cigarette nicotine dependence without complication Inhale 1 puff into the lungs as needed for Smoking cessation 1 Inhaler 3 01/23/2020 Active NONFORMULARY (20 sources) NONFORMULARY Med ical Marijuana Card 0 Active nystatin 335082 unt/ml oral suspension (1 source) Polyene Antifungal Start: 09-23-20 End: 10-03-19 take 5 mL by mouth four times daily nystatin (MYCOSTATIN) 913360 UNIT/ML suspension Indications: Oral candidiasis Take 5 mLs by mouth 4 times daily for 10 days 200 mL 0 09/23/2022 10/03/2022 Active omeprazole 20 mg delayed release oral capsule (20 sources) Proton Pump Inhibitor Start: 05-17-20 End: 06-16-20 take 1 capsule by mouth once daily omeprazole (PRILOSEC) 20 MG delayed release capsule Indications: Gastroesophageal reflux disease without esophagitis Take 1 capsule by mouth Daily 90 capsule 3 06/13/2024 Active ondansetron (ZOFRAN-ODT) disintegrating tablet 4 mg (3 sources) Start: 09-14-20 ondansetron (ZOFRAN-ODT) disintegrating tablet 4 mg Start: 07-23-2024 ondansetron (Z OFRAN-ODT) disintegrating tablet 4 mg Start: 06-11-2023 ondansetron (Z OFRAN-ODT) disintegrating tablet 4 mg pantoprazole 40 mg delayed r elease oral tablet (2 sources) Proton Pump Inhibitor Start: 09-16-2024 Start: 07-24-2024 40 mg, Oral, D AILY BEFORE BREAKFAST, First dose on Tue07/24/24 at 0700, Until Discontinued, Do not crush or break. Substituted for Omeprazole (PRILOSEC). Potassium Chloride (1 source) Start: 09-14-2024 potassium chlo ride (KLOR-CON M) extended release tablet 40 mEq povidone-iodine 100 mg/ml topical spray (1 source) Antiseptic Start: 07-23-2024 Topical, PRN, Wound Care, Please send to patient room STAT, Starting on Tue07/23/24 at 1848, For 1 dose, 1 Large bottle to bedside for Podiatry resident. Please bring to room for dressing changes Thank you Either from supply room or pharmacy. Wherever it is most readily available predniSONE 10 mg oral tablet (2 sources) Start: 06-14-2023 predniSONE (DE LTASONE) 10 MG tablet 4 tabs daily for 3 days, 3 tabs daily for 3 days, 2 tabs daily for 3 days, 1 tab daily for 3 days 30 tablet 0 06/14/2023 Active 5 ml sodium chloride 9 mg/ml injection (16 sources) Start: 09-14-2024 Start: 09-14-2024 End: 09-15-2024 Start: 09-14-2024 IntraVENous, a t 5-250 mL/hr, PRN, if patient receiving piggyback infusions and maintenance fluids are not ordered, Starting on Tue09/14/24 at 1124, For piggyback infusion, administer at same rate as piggyback for a total of 25 mL. Enter 25 mL into dose field and piggyback rate into rate field of order. If piggyback is infusing at a rate less than 100 mL/hr, enter 25 mL into dose field and 100 mL/hr into rate field of order. Start: 09-14-2024 5-40 mL, Intra VENous, EVERY 12 HOURS SCHEDULED (2 times per day), First dose on Tue09/14/24 at 1145, Until Discontinued, For Line Patency: Peripheral IV [...] or Central Line = 20 mL/lumen Start: 09-14-2024 5-40 mL, Intra VENous, PRN, Starting on Tue09/14/24 at 1124, Until Discontinued, Line Care, After every IV [...] or Central Line = 20 mL/lumen Start: 07-23-2024 5-40 mL, Intra VENous, EVERY 12 HOURS SCHEDULED (2 times per day), First dose on Tue07/23/24 at 2100, Until Discontinued, For Line Patency: Peripheral IV [...] or Central Line = 20 mL/lumen Start: 07-23-2024 End: 07-24-2024 IntraVENous, at 75 mL/hr, CONTINUOUS, Starting on Tue07/23/24 at 1915, For 24 hours, Complete last bag that is running at 24 hours and then saline lock IV Start: 07-23-2024 IntraVENous, a t 5-250 mL/hr, PRN, if patient receiving piggyback infusions and maintenance fluids are not ordered, Starting on Tue07/23/24 at 1845, For piggyback infusion, administer at same rate as piggyback for a total of 25 mL. Enter 25 mL into dose field and piggyback rate into rate field of order. If piggyback is infusing at a rate less than 100 mL/hr, enter 25 mL into dose field and 100 mL/hr into rate field of order. Start: 07-23-2024 5-40 mL, Intra VENous, PRN, Starting on Tue07/23/24 at 1845, Until Discontinued, Line Care, After every IV [...] Central Line = 20 mL/lumen Start: 06-11-2023 take 1 dose intraven ously twice daily 5-40 mL, IntraVENous, EVERY 12 HOURS SCHEDULED (2 times per day), First dose on Tue06/11/23 at 0900, Until Discontinued For Line Patency: [...] sodium chloride 0.9 % bolus 1,000 mL tiZANidine 4 mg oral tablet (20 sources) Central alpha-2 Adrenergic Agonist Start: 03-13-2024 tiZANidine (ZANAFLEX ) 4 MG tablet Take 1 tablet by mouth 0 03/13/2024 Active Start: 02-21-2019 tiZANidine (ZA NAFLEX) 4 MG tablet 4 mg nightly 0 02/21/2019 Active traMADol hydrochloride 50 mg oral tablet (20 sources) Opioid Agonist Start: 12-12-2024 End: 02-20-2025 take 1 tablet by mouth every six hours as needed for pain traMADol (ULTRAM) 50 MG tablet Indications: Charcot's joint of foot, left , 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 Intended supply: 30 days. Take lowest dose possible to manage pain Max Daily Amount: 200 mg 120 tablet 01/21/2025 02/20/2025 Active Start: 11-19-2024 End: 12-19-2024 take 1 tablet by mouth every four hours as needed for pain traMADol (ULTRAM) 50 MG tablet Indications: Closed dislocation of tarsal joint of left foot, initial encounter , Charcot's joint of foot, left , 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) Take 1 tablet by mouth every 4 hours as needed for Pain for up to 30 days. Intended supply: 30 days. Take lowest dose possible to manage pain Max Daily Amount: 300 mg 120 tablet 11/19/2024 12/19/2024 Active Start: 09-15-2024 take 100 mg by mouth twice daily 100 mg, Oral, 2 times daily, First dose on Tue09/15/24 at 1145, Until Discontinued Start: 07-24-2024 take 50 mg by mouth every six hours as needed 50 mg, Oral, EVERY 6 HOURS PRN, Starting on Tue07/24/24 at 0953, Until Discontinued, Pain Severe (7-10), On hold since Tue07/24/2024 at 1638 until manually unheld Start: 07-23-2024 End: 07-24-2024 take 100 mg by mouth twice daily 100 mg, Oral, 2 TIMES DAILY, First dose on Tue07/23/24 at 2330, Until Discontinued Start: 10-06-2023 End: 10-17-2024 take 2 tablets by mouth at bedtime traMADol (ULTRAM) 50 MG tablet Indications: Closed dislocation of tarsal joint of left foot, initial encounter , Charcot's joint of foot, left , 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) , Tobacco abuse , Left foot pain Take 2 tablets by mouth in the morning and at bedtime for 30 days. Intended supply: 30 days. Take lowest dose possible to manage pain Max Daily Amount: 200 mg 120 tablet 09/17/2024 10/17/2024 Active Start: 06-11-2023 End: 06-12-2023 traMADol (ULTRAM) tablet 50 mg Start: 09-21-2022 take 100 mg by mouth twice daily Tramadol Active 100 MG PO Twice daily [...] Platelet Aggregation Inhibitor, Nonsteroidal Anti-inflammatory Drug Start: 09-15-2024 take 81 mg by mouth once daily 81 mg, Oral, DAILY, First dose on 09/15/24 at 1100, Until Discontinued Start: 09-14-2024 aspirin 325 MG EC tablet 09/14/2024 Active Start: 07-24-2024 take 81 mg by mouth once daily 81 mg, Oral, DAILY, First dose (after last modification) on Tue07/24/24 at 1200, Until Discontinued Start: 06-11-2023 take 81 mg by mouth once daily 81 mg, Oral, DAILY, First dose on 06/11/23 at 0900, Until Discontinued take 1 tablet by fermin th once daily aspirin 81 MG tablet Take 1 tablet [...] on 06/11/23 at 0043, Until Discontinued, Cough cetirizine hydrochloride 10 mg oral tablet (3 sources) Histamine-1 Receptor Antagonist Start: 09-15-2024 take 10 mg by mouth once daily 10 mg, Oral, DAILY, First dose on Tue09/15/24 at 0900, Until Discontinued, Substituted for Levocetirizine (XYZAL). Start: 07-24-2024 take 10 mg by mouth once daily 10 mg, Oral, NIGHTLY, First dose (after last modification) on Tue07/24/24 at 2100, Until Discontinued, Substituted for Levocetirizine (XYZAL). Start: 06-11-2023 cetirizine (ZY RTEC) tablet 10 mg chlorhexidine gluconate 1.2 mg/ml mouthwash (3 sources) Start: 07-05-2024 End: 07-19-2024 take 15 mL by mouth twice daily chlorhexidine (PERIDEX) 0.12 % solution Indications: Oral aphthous ulcer Swish and spit 15 mLs 2 times daily for 14 days 420 mL 07/05/2024 07/19/2024 ciprofloxacin 500 mg oral tablet (2 sources) Quinolone Antimicrobial Start: 08-21-2024 End: 09-07-2024 take 1 tablet by mouth twice daily ciprofloxacin (CIPRO) 500 MG tablet Take 1 tablet by mouth 2 times daily 28 tablet 08/21/2024 09/07/2024 Discontinued (Therapy completed) dextromethorphan hydrobromide 2 mg/ml / guaiFENesin 20 mg/ml oral suspension (1 source) Uncompetitive U-xsawnv-T-aspart ate Receptor Antagonist, Sigma-1 Agonist Start: 06-11-2023 take 5 mL by mouth every four hours as needed 5 mL, Oral, EVERY 4 HOURS PRN, Starting on 06/11/23 at 0043, Until Discontinued, Cough 0.4 ml enoxaparin sodium 100 mg/ml prefilled syringe (3 sources) Low Molecular Weight Heparin Start: 09-14-2024 inject 40 mg by subcutaneous injection once daily 40 mg, SubCUTAneous, DAILY, First dose on Tue09/14/24 at 1400, Until Discontinued, Indication of Use: Prophylaxis-DVT/P E, Administer by deep subCUTAneous injection with pt lying down. Alternate injection sites on abdominal wall. Do not rub site after injection. Check with provider prior to any invasive procedure. Start: 07-24-2024 inject 40 mg by subc utaneous injection once daily 40 mg, SubCUTAneous, DAILY, First dose on Tue07/24/24 at 0900, Until Discontinued, Indication of Use: Prophylaxis-DVT/PE, Administer by deep subCUTAneous injection with pt lying down. Alternate injection sites on abdominal wall. Do not rub site after injection. Check with provider prior to any invasive procedure. Start: 06-11-2023 inject 40 mg by subc utaneous injection once daily 40 mg, SubCUTAneous, DAILY, First dose on Tue06/11/23 at 0900, Until Discontinued Indication of Use: Prophylaxis-DVT/PE ergocalciferol 1.25 mg oral capsule (1 source) Provitamin D2 Compound Start: 07-25-2024 take 77751 [IU] by mouth every week 50,000 Units, Oral, WEEKLY, First dose on Tue07/25/24 at 0930, Until Discontinued famotidine 20 mg oral tablet (1 source) Histamine-2 Receptor Antagonist Start: 06-11-2023 take 20 mg by mouth twice daily 20 mg, Oral, 2 TIMES DAILY, First dose on Tue06/11/23 at 0100, Until Discontinued fenofibrate 160 mg oral tablet (20 sources) Peroxisome Proliferator Receptor alpha Agonist Start: 09-15-2024 160 mg, Oral, DAILY, First dose on Tue09/15/24 at 1100, Until Discontinued, Substituted for Fenofibrate (Non-Formulary Dose). Start: 07-24-2024 160 mg, Oral, Nightly, First dose (after last modification) on Tue07/24/24 at 2100, Until Discontinued, Substituted for Fenofibrate (Non-Formulary Dose). Start: 08-23-2023 take 1 tablet by fermin th once daily fenofibrate (TRICOR) 145 MG tablet [...] once daily 90 tablet 3 03/22/2022 Active gabapentin 300 mg oral capsule (20 sources) Anti-epileptic Agent Start: 09-14-2024 End: 09-14-2024 300 mg, Oral, ONCE, 1 dose, On Tue09/14/24 at 0630, Administer 60 minutes prior to surgery., Pre-op (day of surgery) Start: 07-23-2024 End: 07-23-2024 300 mg, Oral, ONCE, 1 dose, On 07/23/24 at 1245, Administer 60 minutes prior to surgery., Pre-op (day of surgery) Start: 06-11-2023 gabapentin (NE URONTIN) capsule 600 mg Start: 02-21-2019 take 1 tablet by fermin th three times daily gabapentin (NEURONTIN) 600 MG tablet Take 1 tablet by mouth 3 times daily. 0 02/21/2019 Active 1 ml HYDROmorphone hydrochloride 1 mg/ml cartridge (1 source) Opioid Agonist Start: 07-23-2024 End: 07-23-2024 0.5 mg, IntraVENous, EVERY 5 MIN PRN, 2 doses, Starting on Tue07/23/24 at 1707, Until Tue07/23/24 at 2007, Pain Severe (7-10), For Phase I. If Phase II oral narcotics have been administered in the last 60 minutes, do not administer IV narcotics unless specifically approved by provider., PACU only ibuprofen 400 mg oral tablet (1 source) Nonsteroidal Anti-inflammatory Drug Start: 06-11-2023 take 400 mg by mouth three times daily at mealtime 400 mg, Oral, 3 TIMES DAILY WITH MEALS, First dose on 06/11/23 at 0800, Until Discontinued Do not crush or break. Subst ituted for Diclofenac (VOLTAREN). insulin glargine 100 unt/ml injectable solution (20 sources) Insulin Analog Start: 09-14-2024 End: 09-15-2024 inject 15 [IU] by subcutaneous injection twice daily 15 Units, SubCUTAneous, 2 TIMES DAILY, First dose on Tue09/14/24 at 2100, Until Discontinued Start: 2019 insulin glargi ne (LANTUS SOLOSTAR) [...] skin 80 units twice daily 0 Active 3 ml insulin, regular, human 500 unt/ml pen injector (20 sources) Insulin Start: 09-15-2024 100 Units, Sub CUTAneous, 2 TIMES DAILY WITH MEALS, First dose on 09/15/24 at 1700, Until Discontinued, This is a highly concentrated insulin. After attaching the pen needle, prime with 5 units to ensure proper dosing. Start: 09-02-2024 inject 500 [IU] by s ubcutaneous injection once daily HUMULIN R U-500 KWIKPEN 500 UNIT/ML SOPN concentrated injection pen INJECT UP TO 500 UNITS SUBCUTANEOUSLY PER DAY. 09/02/2024 Active Start: 06-11-2023 inject 100 [IU] by s ubcutaneous injection twice daily at mealtime 100 Units, [...] the skin 2 times daily (with meals) 100 Units AM,105 Units PM Active insulin regular human (HUMULIN [...] iopamidol (ISOVUE-370) 76 % injection 75 mL 1 ml ketorolac tromethamine 30 mg/ml cartridge (1 source) Nonsteroidal Anti-inflammatory Drug, Cyclooxygenase Inhibitor Start: 07-13-2024 End: 07-13-2024 30 mg, IntraMUSCular, ONCE, 1 dose, On Tue07/13/24 at 2015, Do not administer for more than 5 days. 10 ml lidocaine hydrochloride 10 mg/ml injection (2 sources) Antiarrhythmic, Amide Local Anesthetic Start: 01-20-2021 End: 01-20-2021 lidocaine PF 1 % injection melatonin 3 mg oral tablet (1 source) Start: 09-14-2024 take 3 mg by mouth once daily 3 mg, Oral, NIGHTLY, First dose on Tue09/14/24 at 2100, Until Discontinued methocarbamol 500 mg oral tablet (20 sources) Muscle Relaxant Start: 07-23-2024 take 500 mg by mouth four times daily 500 mg, Oral, 4 TIMES DAILY, First dose on 09/15/24 at 1300, Until Discontinued 1 ml morphine sulfate 2 mg/ml injection (2 sources) Opioid Agonist Start: 07-23-2024 End: 07-26-2024 take 2 mg by mouth every four hours as needed for pain 2 mg, IntraVENous, EVERY 4 HOURS PRN, Starting on 07/23/24 at 1848, Until Olena 07/26/24 at 1125, Pain Severe (7-10), breakthru, If oral and IV narcotics ordered, use oral first and only use IV if oral is ineffective or cannot take oral. Do Not give oral and IV within 1 hour of each other unless specifically ordered. Start: 08-06-2022 End: 08-06-2022 morphine injection 4 mg nitroglycerin 0.3 mg sublingual tablet (1 source) Nitrate Vasodilator Start: 09-29-2022 End: 09-29-2022 nitroGLYCERIN (NITROSTAT) SL tablet 0.3 mg Start: 09-29-2022 End: 09-29-2022 nitroGLYCERIN (NITROSTAT) SL tablet 0.3 mg oxyCODONE hydrochloride 5 mg oral tablet (1 source) Opioid Agonist Start: 07-14-2024 End: 07-14-2024 take 1 dose by mouth once 5 mg, Oral, ONCE, 1 dose, On 07/14/24 at 0030 Start: 07-14-2024 End: 07-14-2024 take 1 dose by mouth once 5 mg, Oral, ONCE, 1 dose, On 07/14/24 at 0030 pioglitazone 15 mg oral tablet (20 sources) Peroxisome Proliferator Receptor alpha Agonist, Peroxisome Proliferator Receptor gamma Agonist, Thiazolidinedione Start: 09-15-2024 take 30 mg by mouth once daily 30 mg, Oral, DAILY, First dose on 09/15/24 at 1100, Until Discontinued Start: 06-12-2024 pioglitazone ( ACTOS) 30 MG tablet 06/12/2024 Active polyethylene glycol 3350 36590 mg powder for oral solution (3 sources) Osmotic Laxative Start: 09-14-2024 17 g, Oral, D AILY PRN, Starting on Tue09/14/24 at 1124, Until Discontinued, Constipation, First line therapy for constipation Start: 07-23-2024 17 g, Oral, DA KAVIN PRN, Starting on 07/23/24 at 1845, Until Discontinued, Constipation, First line therapy for constipation Start: 06-11-2023 17 g, Oral, DA KAVIN PRN, Starting on 06/11/23 at 0043, Until Discontinued, Constipation First line therapy for constipation pregabalin 25 mg oral capsule (20 sources) Start: 09-15-2024 take 25 mg by mouth once daily 25 mg, Oral, DAILY, First dose on 09/15/24 at 1100, Until Discontinued Start: 12-13-2024 take 1 capsule by mo uth three times daily pregabalin (LYRICA) 50 MG capsule Take 1 capsule by mouth 3 times daily. 09/07/2024 Active Start: 06-30-2024 End: 07-24-2024 pregabalin (LYRICA) 25 MG ca psule 06/30/2024 Active Start: 06-30-2024 take 25 mg by mouth three times daily 25 mg, Oral, 3 TIMES DAILY, First dose (after last modification) on Tue07/24/24 at 1400, Until Discontinued regadenoson (LEXISCAN) injection 0.4 mg (1 source) Start: 03-03-2021 End: 03-03-2021 regadenoson (LEXISCAN) injection 0.4 mg rOPINIRole 2 mg oral tablet (20 sources) Nonergot Dopamine Agonist Start: 09-14-2024 take 4 mg by mouth once daily 4 mg, Oral, NIGHTLY, First dose on Tue09/14/24 at 2245, Until Discontinued Start: 07-23-2024 take 4 mg by mouth once daily 4 mg, Oral, NIGHTLY, First dose on 07/23/24 at 2330, Until Discontinued Start: 07-14-2024 take 1 dose by mouth once 4 mg , Oral, ONCE, 1 dose, On 07/14/24 at 0100 Start: 06-11-2023 take 4 mg by mouth once daily 4 mg, Oral, NIGHTLY, First dose on 06/11/23 at 0100, Until Discontinued Start: 11-03-2015 rOPINIRole (RE QUIP) 4 MG tablet TAKE 1 TABLET DAILY 90 tablet 0 11/03/2015 Active technetium sestamibi (CARDIOLITE) injection 30 millicurie (2 sources) Start: 03-04-2021 End: 03-04-2021 technetium sestamibi (CARDIOLITE) injection 30 millicurie Start: 03-03-2021 End: 03-03-2021 technetium sestamibi (CARDIO LITE) injection 30 millicurie technetium sulfur colloid eg g [facility]) solution 1 millicurie (2 sources) Start: 08-22-2019 End: 08-22-2019 technetium sulfur colloid eg g (MTCOMED-SC) solution 1 millicurie Start: 08-16-2019 End: 08-16-2019 technetium sulfur colloid eg g (NYCOMED-SC) solution 1 millicurie water 1000 mg/ml injectable solution (3 sources) Start: 06-11-2023 End: 06-12-2023 sterile water injection Problems Active Problems Problem Classification Problem Date Documented Da te Episodic/Chronic Abdominal pain (20 sources) Generalized abdominal pain; Translations: [Abdominal pain] 07-09-2015 Episodic Administrative/social admission (1 source) Counseling procedure with explicit context; Translations: [Tobacco abuse counseling] Episodic Complication of device; implant or graft (1 source) Pain due to other internal prosthetic devices, implants and grafts, initial encounter Episodic Conditions associated with dizziness or vertigo (1 source) Dizziness; Translations: [Dizziness and giddiness] Episodic Diabetes mellitus with complications (20 sources) [...] classified; Translations: [OTH SPEC D/O INVOLV [facility]] Onset: 05-02-2022 Chronic Malaise and fatigue (2 sources) Tired; Translations: [Other fatigue] Episodic Mood disorders (20 sources) Depressive disorder; Translations: [Major depressive disorder, single episode, unspecified] Onset: 01-31-2013 07-06-2015 Chronic Nonspecific chest pain (1 source) Chest discomfort; Translations: [Other chest pain] Episodic Osteoarthritis (20 sources) Unspecified osteoarthritis, unspecified site; Translations: [Osteoarthritis of joint of left shoulder region] Onset: 04-06-2022 06-11-2024 Chronic Other aftercare (3 sources) joint terminal attack controller (current) use of insulin; Translations: [joint terminal attack controller (current) use of insulin (HCC)] Onset: 06-11-2023 Episodic Other connective tissue disease (1 source) Pain in left foot; Translations: [Pain in left foot] 08-31-2024 Episodic Other injuries and conditions due to [...] [CHRONIC PAIN SYNDROME] Onset: 04-06-2022 Chronic Other nervous system disorders (1 source) Other acute postprocedural pain; Translations: [Other acute postprocedural pain] Onset: 09-15-2024 Episodic Other non-traumatic joint disorders (20 sources) Charcot's arthropathy; Translations: [Charcot's joint, left ankle and foot] Onset: 07-17-2024 07-17-2024 Chronic Other non-traumatic joint disorders (20 sources) Charcot's joint of foot; Translations: [Charcot's joint, left ankle and foot] Onset: 07-23-2024 07-23-2024 Chronic Other non-traumatic joint disorders (4 sources) Charcot's joint, left ankle and foot; Translations: [Charcot's joint, left ankle and foot] Onset: 08-31-2024 Chronic Other nutritional; endocrine; and metabolic disorders (2 sources) Body mass index 30+ - obesity; Translations: [Body mass index (BMI) 33.0-33.9, adult] Chronic Other upper respiratory infections (2 sources) Recurrent sinusitis; Translations: [Chronic sinusitis, unspecified] Onset: 07-02-2024 07-02-2024 Chronic Peripheral and visceral atherosclerosis (1 source) Intermittent claudication; Translations: [Peripheral vascular disease, unspecified] Chronic Residual codes; unclassified (18 sources) Tobacco user; Translations: [Tobacco abuse] Onset: 12-21-2017 12-21-2017 Chronic Residual codes; unclassified (2 sources) Obstructive sleep apnea syndrome; Translations: [Obstructive sleep apnea (adult) (pediatric)] Chronic Residual codes; unclassified (1 source) Edema of lower leg ; Translations: [Localized edema] 12-07-2023 Episodic Residual codes; unclassified (3 sources) Tobacco use; Translations: [Tobacco use] Onset: 07-24-2024 Episodic Spondylosis; intervertebral disc disorders; other back [...] Translations: [LOW BACK PAIN, UNSPECIFIED] Onset: 10-25-2022 Past or Other Problems Problem Classification Problem Date Documented Date Episodic/Chronic Anal and rectal conditions (20 sources) Perirectal abscess; Translations: [Rectal abscess] Onset: 12-20-2017 12-23-2017 Episodic Calculus of urinary tract (20 sources) Kidney stone; Translations: [Ureteric stone] Onset: 07-03-2013 Resolved: 12-21-2017 08-13-2013 Episodic Fracture of lower limb (20 sources) Closed fracture of metatarsal bone of left foot; Translations: [Fracture of unspecified metatarsal bone(s), left foot, initial encounter for closed fracture] Onset: 07-13-2024 07-13-2024 Episodic Genitourinary symptoms and ill-defined conditions (20 sources) Carl hematuria; Translations: [Gross hematuria] Onset: 07-19-2013 07-19-2013 Episodic Joint disorders and dislocations; trauma-related (20 sources) Traumatic dislocation of joint of foot; Translations: [Dislocation of tarsometatarsal joint of left foot, initial encounter] Onset: 07-13-2024 07-13-2024 Episodic Other acquired deformities (20 sources) Acquired equinus deformity of foot; Translations: [Other specified acquired deformities of left lower leg] Onset: 07-23-2024 07-23-2024 Episodic Other aftercare (2 sources) Other senior living (current) drug therapy; Translations: [Other ad terminal makeup operator (current) drug therapy] Onset: 04-12-2024 Episodic Other and unspecified benign neoplasm (20 sources) Benign neoplasm of skin of trunk; Translations: [Melanocytic nevi of trunk] Onset: 03-24-2022 03-24-2022 Episodic Other connective tissue disease (20 sources) Fibromyalgia; Translations: [Fibromyalgia] Onset: 01-31-2013 12-21-2017 Episodic Other connective tissue disease (20 sources) Pain in upper limb; Translations: [Pain in arm, unspecified] Onset: 01-31-2013 01-31-2013 Episodic Other connective tissue disease (20 sources) Spasm; Translations: [Other muscle spasm] Onset: 06-09-2023 06-11-2024 Episodic Other connective tissue disease (20 sources) Muscle pain; Translations: [Myalgia, other site] Onset: 12-08-2023 06-11-2024 Episodic Other connective tissue disease (1 source) Pain in left foot; Translations: [Pain in left foot] Onset: 08-31-2024 Episodic Other connective tissue disease (2 sources) Myalgia, unspecified site; Translations: [Myalgia, unspecified site] Onset: 05-08-2024 Episodic Other connective tissue disease (1 source) Fibromyalgia; Translations: [Fibromyalgia] Onset: 03-08-2024 Episodic Other diseases of kidney and ureters (20 sources) Hydronephrosis; Translations: [Unspecified hydronephrosis] Onset: 04-28-2016 Resolved: 12-21-2017 12-21-2017 Episodic Other injuries and conditions due to external causes (20 sources) Acute organ dysfunction due to systemic inflammatory response syndrome; Translations: [Systemic inflammatory response syndrome (SIRS) of non-infectious origin with acute organ dysfunction] Onset: 07-05-2015 07-08-2015 Episodic Other nervous system disorders (20 sources) Postoperative pain ; Translations: [Other acute postprocedural pain] Onset: 07-23-2024 Resolved: 09-15-2024 07-26-2024 Episodic Other non-traumatic joint disorders (20 sources) Multiple joint pain; Translations: [Pain in unspecified joint] Onset: 09-16-2020 09-16-2020 Episodic Other non-traumatic joint disorders (20 sources) Pain in left shoulder; Translations: [Pain in joint, shoulder region] Onset: 07-21-2023 06-11-2024 Episodic Other screening for suspected conditions (not mental disorders or infectious disease) (20 sources) Liver function tests abnormal; Translations: [Abnormal results of liver function studies] Onset: 03-09-2021 Episodic Other upper respiratory infections (3 sources) Pansinusitis; Translations: [Acute recurrent pansinusitis] Onset: 07-02-2024 07-02-2024 Episodic Pancreatic disorders (not diabetes) (20 sources) Idiopathic acute pancreatitis; Translations: [Idiopathic acute pancreatitis without necrosis or infection] Onset: 07-06-2015 07-06-2015 Episodic Pneumonia (except that caused by tuberculosis or sexually transmitted disease) (20 sources) Infective pneumonia; Translations: [Pneumonia, unspecified organism] Onset: 06-10-2023 06-10-2023 Episodic Residual codes; unclassified (20 sources) Tobacco user; Translations: [Tobacco use] Onset: 12-21-2017 12-21-2017 Episodic Spondylosis; intervertebral disc disorders; other back problems (20 sources) Lumbago with sciatica; Translations: [Lumbago with sciatica, left side] Onset: 04-15-2022 Episodic Syncope (20 sources) Situational syncope; Translations: [Syncope and collapse] Onset: 06-11-2023 Episodic Unclassified (1 source) LOW BACK PAIN, UNSPECIFIED; Translations: [LOW BACK PAIN, UNSPECIFIED] Onset: 01-27-2023 Results Test Name Value Interpretation Reference Range Facility Hemoglobin A1Con 01-25-2025 Average glucose Estimated from glycated hemoglobin (Bld) [Mass/Vol] 200 mg/dL [facility] Comment on above: The ADA and AACC rec ommend providing the estimated average glucose result to permit better patient understanding of their HBA1c result. HbA1c (Bld) [Mass fraction] 8.6 % High 4.0 - 6.0 % [facility] Interpretation and review of laboratory results Abnormal [facility] Glucose [Mass/Vol] 200 mg/dL Normal [facility] Comment on above: Result Comment: The ADA and AACC recommend providing the estimated average glucose result to permit better patient understanding of their HBA1c result. Performed By: #### G LYHGB #### [facility] [address] [place] [address] Livestock Rancher: Melvin Santoyo MD HbA1c (Bld) [Mass fraction] 8.6 % High 4.0-6.0 [facility] Comment on above: Performed By: #### G LYHGB #### [facility] [address] [place] [address] Livestock Rancher: Melvin Santoyo MD Hemoglobin A1Con 10-12-2024 Glucose [Mass/Vol] 177 mg/dL Normal [facility] Comment on above: Result Comment: The ADA and AACC recommend providing the estimated average glucose result to permit better patient understanding of their HBA1c result. Performed By: #### G LYHGB #### [facility] [address] [place] [address] Livestock Rancher: Melvin Santoyo MD #### TSHX #### [facility] [address] [place] [address] Livestock Rancher: Phillip Camarena MD HbA1c (Bld) [Mass fraction] 7.8 % High 4.0-6.0 [facility] Comment on above: Performed By: #### G LYHGB #### [facility] [address] [place], [place] [id number] Livestock Rancher: Melvin Santoyo MD #### TSHX #### [facility] [address] [place] [address] Livestock Rancher: Phillip Camarena MD CBC with Auto Differentialon 09-15-2024 Basophils (Bld) [#/Vol] 0.10 10*3/uL [facility] Basophils/100 WBC (Bld) 1 % 0 - 2 % B on [facility] Eosinophils (Bld) [#/Vol] 0.00 10*3/uL [facility] Eosinophils/100 WBC (Bld) 0 % 0 - 4 % [facility] Erythrocyte distribution width (RBC) [Ratio] 14.4 % 11.5 - 14.9 % [facility] Hematocrit (Bld) [Volume fraction] 27.8 % Low 36 - 46 % [facility] Hemoglobin (Bld) [Mass/Vol] 9.3 g/dL Low 12.0 - 16.0 g/dL [facility] Interpretation and review of laboratory results Abnormal Bon [facility] Lymphocytes/100 WBC (Bld) 24 % 24 - 44 % [facility] Lymphocytes/100 WBC (Bld) 2.60 % [facility] MCH (RBC) [Entitic mass] 31.2 pg 26 - [address] [facility] MCHC (RBC) [Mass/Vol] 33.3 g/dL 31 - 37 g/dL B on [facility] MCV (RBC) [Entitic vol] 93.6 fL 80 - [address] [facility] Monocytes/100 WBC (Bld) 9 % High 1 - 7 % [facility] Monocytes/100 WBC (Bld) 1.00 % B on [facility] Neutrophils/100 WBC (Bld) 66 % 36 - 66 % [facility] Platelet mean volume (Bld) [Entitic vol] 7.1 fL 6.0 - 12.[address] [facility] Platelets (Bld) [#/Vol] 366 10*3/uL [facility] RBC (Bld) [#/Vol] 2.97 10*6/uL Low 4.0 - 5.2 m/uL [facility] Segmented neutrophils/100 WBC (Bld) 7.40 % [facility] WBC other (Bld) [#/Vol] 11.2 High B on [facility] CBC with Diffon 09-15-2024 Abs. Basophil 0.10 k/uL Normal 0.0-0.2 [facility] Comment on above: Performed By: #### C DP, CMPX #### [facility] [address] [place] [address] Livestock Rancher: Ed Mcduffie DO Abs.Neutrophil (Seg) 7.40 k/uL Normal 1.3-9.1 [facility] Comment on above: Performed By: #### C DP, CMPX #### [facility] [address] [place] [address] Livestock Rancher: Ed Mcduffie DO Basophils/100 WBC (Bld) 1 % Normal 0-2 [facility] Comment on above: Performed By: #### C DP, CMPX #### [facility] [place] [address] Livestock Rancher: Ed Mcduffie DO Eosinophils (Bld) [#/Vol] 0.00 10*3/uL Normal 0.0-0.4 [facility] Comment on above: Performed By: #### C DP, CMPX #### [facility] [address] [place] [address] Livestock Rancher: Ed Mcduffie DO Eosinophils/100 WBC (Bld) 0 % Normal 0-4 [facility] Comment on above: Performed By: #### C DP, CMPX #### [facility] [place] [address] Livestock Rancher: Ed Mcduffie DO Erythrocyte distribution width (RBC) [Ratio] 14.4 % Normal 11.5-14.9 [facility] Comment on above: Performed By: #### C DP, CMPX #### [facility] [address] [place] [address] Livestock Rancher: Ed Mcduffie DO Hematocrit (Bld) [Volume fraction] 27.8 % Low 36-46 [facility] Comment on above: Performed By: #### C DP, CMPX #### [facility] [address] [place] [address] Livestock Rancher: Ed Mcduffie DO Hemoglobin (Bld) [Mass/Vol] 9.3 g/dL Low 12.0-16.0 [facility] Comment on above: Performed By: #### C DP, CMPX #### [facility] [address] [place] [address] Livestock Rancher: Ed Mcduffie DO Lymphocytes (Bld) [#/Vol] 2.60 10*3/uL Normal 1.0-4.8 [facility] Comment on above: Performed By: #### C DP, CMPX #### [facility] [address] [place] [address] Livestock Rancher: Ed Mcduffie DO Lymphocytes/100 WBC (Bld) 24 % Normal 24-44 [facility] Comment on above: Performed By: #### C DP, CMPX #### [facility] [address] [place] [address] Livestock Rancher: Ed Mcduffie DO MCH (RBC) [Entitic mass] 31.2 pg Normal 26-34 [facility] Comment on above: Performed By: #### C DP, CMPX #### [facility] [place] [address] Livestock Rancher: Ed Mcduffie DO MCHC (RBC) [Mass/Vol] 33.3 g/dL Normal 31-37 [facility] Comment on above: Performed By: #### C DP, CMPX #### [facility] [address] [place] [address] Livestock Rancher: Ed Mcduffie DO MCV (RBC) [Entitic vol] 93.6 fL Normal 80-100 [facility] Comment on above: Performed By: #### C DP, CMPX #### [facility] [address] [place] [address] Livestock Rancher: Ed Mcduffie DO Monocytes (Bld) [#/Vol] 1.00 10*3/uL Normal 0.1-1.3 [facility] Comment on above: Performed By: #### C DP, CMPX #### [facility] [address] [place] [address] Livestock Rancher: Ed Mcduffie DO Monocytes/100 WBC (Bld) 9 % High 1-[address] [facility] Comment on above: Performed By: #### C DP, CMPX #### [facility] [address] [place] [address] Livestock Rancher: Ed Mcduffie DO Neutrophil (Seg) 66 % Normal 36-66 [facility] Comment on above: Performed By: #### C DP, CMPX #### [facility] [address] [place] [address] Livestock Rancher: Ed Mcduffie DO Platelet mean volume (Bld) [Entitic vol] 7.1 fL Normal 6.0-12.0 [facility] Comment on above: Performed By: #### C DP, CMPX #### [facility] [address] [facility] [place] [address] Livestock Rancher: Ed Mcduffie DO Platelets (Bld) [#/Vol] 366 10*3/uL Normal 150-450 [facility] Comment on above: Performed By: #### C DP, CMPX #### [facility] [address] [place] [address] Livestock Rancher: Ed Mcduffie DO RBC (Bld) [#/Vol] 2.97 10*6/uL Low 4.0-5.2 [facility] Comment on above: Performed By: #### C DP, CMPX #### [facility] [address] [place] [address] Livestock Rancher: Ed Mcduffie DO WBC (Bld) [#/Vol] 11.2 10*3/uL High 3.5-11.0 [facility] Comment on above: Performed By: #### C DP, CMPX #### [facility] [address] [place] [address] Livestock Rancher: Ed Mcduffie DO Comp Metabolic Pr/rfx MGon 1 11-16-2023 Albumin [Mass/Vol] 4.1 g/dL Normal 3.5-5.2 [facility] Comment on above: Performed By: #### C DP, CMPX ####[facility] [id number] [place] [address] Lab Director: Ed Mcduffie DO Alkaline Phos 54 U/L Normal 35-104 [facility] Comment on above: Performed By: #### C DP, CMPX ####[facility] [id number] [place] [address] Lab Director: Fanelly, Ed, DO ALT [Catalytic activity/Vol] 11 U/L Normal 10-35 [facility] Comment on above: Performed By: #### C DP, CMPX ####[facility] [id number] [place] [address] Lab Director: Ed Mcduffie DO Anion gap [Moles/Vol] 12 mmol/L Normal 9-16 [facility] Comment on above: Performed By: #### C DP, CMPX ####[facility] [id number] [place] [address] Lab Director: Ed Mcduffie DO AST [Catalytic activity/Vol] 19 U/L Normal 10-35 [facility] Comment on above: Performed By: #### C DP, CMPX ####[facility] [id number] [place] [address] Lab Director: Ed Mcduffie DO Bilirubin [Mass/Vol] mg/dL Normal 0.0-1.2 [facility] Comment on above: Performed By: #### C JUDI, CMPX ####[facility] [id number] [place] [address] Lab Director: Ed Mcduffie DO Calcium [Mass/Vol] 9.2 mg/dL Normal 8.6-10.4 [facility] Comment on above: Performed By: #### C JUDI, CMPX ####[facility] [id number] [place] [address] Lab Director: Ed Mcduffie DO Chloride [Moles/Vol] 102 mmol/L Normal 98-107 [facility] Comment on above: Performed By: #### C DP, CMPX ####[facility] [id number] [facility] [place] [address] Lab Director: Ed Mcduffie DO CO2 [Moles/Vol] 23 mmol/L Normal 20-31 [facility] Comment on above: Performed By: #### C DP, CMPX ####[facility] [id number] [facility] [place] [address] Lab Director: Ed Mcduffie DO Creatinine [Mass/Vol] 1.0 mg/dL Normal 0.7-1.2 [facility] Comment on above: Performed By: #### C DP, CMPX ####[facility] [id number] [facility] [place] [address] Lab Director: Ed Mcduffie DO GFR/1.73 sq M.predicted among non-blacks MDRD (S/P/Bld) [Vol rate/Area] 68 mL/min/{1.73_m2} Normal >60 [facility] Comment on above: Result Comment: These [...] renal tubular secretion. Performed By: #### C DP, CMPX ####[facility] [id number] [facility] [place] [address] Lab Director: Ed Mcduffie DO Glucose [Mass/Vol] 294 mg/dL High 74-99 [facility] Comment on above: Performed By: #### C DP, CMPX ####[facility] [id number] [facility] [place] [address] Lab Director: Ed Mcduffie DO Potassium [Moles/Vol] 4.7 mmol/L Normal 3.7-5.3 [facility] Comment on above: Performed By: #### C DP, CMPX ####[facility] [id number] [facility] [place] [address] Lab Director: Ed Mcduffie DO Protein [Mass/Vol] 6.7 g/dL Normal 6.6-8.7 [facility] Comment on above: Performed By: #### C DP, CMPX ####[facility] [id number] [facility] [place] [address] Lab Director: Ed Mcduffie DO Sodium [Moles/Vol] 137 mmol/L Normal 136-145 [facility] Comment on above: Performed By: #### C DP, CMPX ####[facility] [id number] [facility] [place] [address] Lab Director: Ed Mcduffie DO Urea nitrogen [Mass/Vol] 28 mg/dL High 6-20 [facility] Comment on above: Performed By: #### C DP, CMPX ####[facility] [id number] [facility] [place] [address] Lab Director: Ed Mcduffie DO Comprehensive Metabolic Pane l w/ Reflex to MGon 09-15-2024 Albumin [Mass/Vol] 4.1 g/dL 3.5 - 5.2 g/dL [facility] ALP [Catalytic activity/Vol] 54 U/L 35 - 104 U/L [facility] ALT [Catalytic activity/Vol] 11 U/L 10 - 35 U/L [facility] Anion gap [Moles/Vol] 12 mmol/L 9 - 16 mmol/L [facility] AST [Catalytic activity/Vol] 19 U/L 10 - 35 U/L [facility] Bilirubin [Mass/Vol] mg/dL 0.0 - 1 .2 mg/dL [facility] Calcium [Mass/Vol] 9.2 mg/dL 8.6 - 10. 4 mg/dL [facility] Chloride [Moles/Vol] 102 mmol/L 98 - 10 7 mmol/L [facility] CO2 [Moles/Vol] 23 mmol/L 20 - 31 mmol/L [facility] Creatinine [Mass/Vol] 1.0 mg/dL 0.7 - 1.2 mg/dL [facility] Est, Jarocho Donist Rate 68 - PINF [facility] Comment on above: These results are not [...] that affects renal tubular secretion. Glucose [Mass/Vol] 294 mg/dL High 74 - 99 mg/dL [facility] Interpretation and review of laboratory results Abnormal [facility] Potassium [Moles/Vol] 4.7 mmol/L 3.7 - 5.3 mmol/L [facility] Protein [Mass/Vol] 6.7 g/dL 6.6 - 8.7 g/dL [facility] Sodium [Moles/Vol] 137 mmol/L 136 - 145 mmol/L [facility] Urea nitrogen [Mass/Vol] 28 mg/dL High 6 - 20 mg/dL [facility] Glucose,Whole Bloodon 2023 Glucose [Mass/Vol] 381 mg/dL High 65-105 [facility] Glucose [Mass/Vol] 310 mg/dL High 65-105 [facility] Glucose [Mass/Vol] 297 mg/dL High 65-105 [facility] POC Glucose Fingerstickon Glucose [Mass/Vol] 381 mg/dL High 65 - 105 mg/dL [facility] Interpretation and review of laboratory results Abnormal [facility] Glucose [Mass/Vol] 310 mg/dL High 65 - 105 mg/dL [facility] Interpretation and review of laboratory results Abnormal [facility] Glucose [Mass/Vol] 297 mg/dL High 65 - 105 mg/dL [facility] Interpretation and review of laboratory results Abnormal [facility] FLUORO FOR SURGICAL PROCEDUR ESon 09-14-2024 FLUORO FOR SURGICAL PROCEDURES Radiology exam is complete. No Radiologist dictation. Please follow up with ordering provider. Final result Normal [facility] Glucose,Whole Bloodon 2023 Glucose [Mass/Vol] 353 mg/dL High 65-105 [facility] Glucose [Mass/Vol] 402 mg/dL Critically high 65-105 [facility] Glucose [Mass/Vol] 301 mg/dL High 65-105 [facility] Glucose [Mass/Vol] 280 mg/dL High 65-105 [facility] Guidance-- during surgeryon 09-14-2024 Radiology exam is complete. No Radiologist dictation. Please follow up with ordering provider. [facility] No Panel Informationon 09-14 1. Postsurgical changes of the left foot without visualized complication. 2. Questioned minimal anterior subluxation of the talus in relation to the distal tibia. 3. Note that overlying casting material obscures fine bony detail. [facility] EXAMINATION: THREE XRAY VIEWS OF THE LEFT ANKLE; THREE XRAY VIEWS OF THE LEFT FOOT; XRAY VIEWS OF THE LEFT TIBIA AND FIBULA 09/14/2024 11:41 am COMPARISON: None. HISTORY: ORDERING SYSTEM PROVIDED HISTORY: post op HWR, midfoot hindfoot fusion, PACU TECHNOLOGIST PROVIDED HISTORY: post op HWR, midfoot hindfoot fusion, PACU Reason for Exam: Post op HWR, midfoot hindfoot fusion FINDINGS: Note that fine bony detail is obscured by overlying casting material. TIBIA/FIBULA: Interval removal of external fixation hardware. There is normal bone mineralization. There is normal alignment. There is no evidence of acute fracture or dislocation. No appreciable soft tissue abnormality. ANKLE: No new acute osseous abnormality. The ankle mortise is intact on these nonweightbearing views. No significant degenerative changes. There is questioned minimal anterior subluxation of the talus in relation to the distal tibia. FOOT: Postsurgical changes of midfoot-hindfoot fusion with three screws, the longest of which extends to the distal 1st metatarsal bone. Tarsal-metatarsal alignment is difficult to evaluate given overlying casting material. No lytic or blastic lesions present. [facility] Hollie Patiño MD - 09/14/2024 EXAMINATION: THREE XRAY VIEWS OF THE LEFT ANKLE; THREE XRAY VIEWS OF THE LEFT FOOT; XRAY VIEWS OF THE LEFT TIBIA AND FIBULA 09/14/2024 11:41 am COMPARISON: None. HISTORY: ORDERING SYSTEM PROVIDED HISTORY: post op HWR, midfoot hindfoot fusion, PACU TECHNOLOGIST PROVIDED HISTORY: post op HWR, midfoot hindfoot fusion, PACU Reason for Exam: Post op HWR, midfoot hindfoot fusion FINDINGS: Note that fine bony detail is obscured by overlying casting material. TIBIA/FIBULA: Interval removal of external fixation hardware. There is normal bone mineralization. There is normal alignment. There is no evidence of acute fracture or dislocation. No appreciable soft tissue abnormality. ANKLE: No new acute osseous abnormality. The ankle mortise is intact on these nonweightbearing views. No significant degenerative changes. There is questioned minimal anterior subluxation of the talus in relation to the distal tibia. FOOT: Postsurgical changes of midfoot-hindfoot fusion with three screws, the longest of which extends to the distal 1st metatarsal bone. Tarsal-metatarsal alignment is difficult to evaluate given overlying casting material. No lytic or blastic lesions present. IMPRESSION: 1. Postsurgical changes of the left foot without visualized complication. 2. Questioned minimal anterior subluxation of the talus in relation to the distal tibia. 3. Note that overlying casting material obscures fine bony detail. [facility] Radiology Study observation (narrative) [facility] No Panel InformationOrdered By: Hollie Patiño on 09-14-[address] [facility] Work Phone: POC Glucose Fingerstickon Glucose [Mass/Vol] 353 mg/dL High 65 - 105 mg/dL [facility] Interpretation and review of laboratory results Abnormal [facility] Glucose [Mass/Vol] 402 mg/dL Critically high 65 - 1 05 mg/dL [facility] Interpretation and review of laboratory results Abnormal [facility] Glucose [Mass/Vol] 301 mg/dL High 65 - 105 mg/dL [facility] Interpretation and review of laboratory results Abnormal [facility] Glucose [Mass/Vol] 280 mg/dL High 65 - 105 mg/dL [facility] Interpretation and review of laboratory results Abnormal [facility] Surgical Pathology Reporton 09-14-2024 Surgical Pathology Report (NOTE) Path Number: [id number] -- Diagnosis -- ORTHOPEDIC HARDWARE, LEFT ANKLE, GROSS ONLY. Yadira Schofield. Electronically Signed Out [id number] Clinical Information Pre-Op Diagnosis: CHARCOT ANKLE, LEFT; DIABETES Operative Findings: EXPLANTED LEFT ANKLE HARDWARE FOR SPD Operation Performed: REMOVAL EXTERNAL FIXATOR LEFT FOOT; SUBTALAR JOINT FUSION MIDFOOT MULTIPLE JOINTS LEFT FOOT se Source of Specimen A: EXPLANTED LEFT ANKLE HARDWARE FOR SPD Gross Description RISA WARNER, EXPLANTED LEFT ANKLE HARDWARE FOR SPD Received fresh are two conner metallic, hollow, circular components with an external diameter of 19.0 cm and an internal diameter of 16.0 cm and are 19.0 x 19.0 x 0.6 cm. One bears the inscription [phone] [id number] ID [id number] and the other [phone] [id number] 160MM ID 2 [id number]. There is a C-shaped conner metallic component that is 17.0 x 1.5 x 0.6 cm bearing the inscription [id number] 140MM ID 2. There is a U-shaped conner metallic device that is roughly 51.0 x 4.0 x 0.9 cm bearing the inscription [phone] [id number] 140MM ID. It has two threaded regions and two embedded conner metallic threaded screws that are 2.9 to 3.0 cm in length x 0.6 to 1.4 cm in diameter, with attached nuts. One screw bears the inscription [id number] [phone] and the other [id number] [phone] CE. There are two black to conner metallic and rubbery components that are 28.8 x 3.5 x 2.3 cm. It bears the inscription FRONT and [id number] CE 2. It has two additional black to conner metallic components attached by threaded screws and washers that are 5.7 cm in length x 0.6 to 1.0 cm in diameter. These components there the inscription B34CE 2. There are four conner metallic rectangular components each with four hollow spaces. It is 5.7 x 1.2 x 0.9 cm. They bear inscription [id number] CE [id number], [phone] CE [id number], [phone] CE [id number] and [phone] CE [id number]. There is a 3.3 x 1.2 x 0.9 cm conner metallic component with two hollow spaces that bears the inscription [id number] CE [id number]. There are eighteen conner, metallic, hexagonal threaded nuts that are 1.1 x 1.0 x 0.6 cm. There are nine threaded bolts that are 1.6 cm in length x 0.6 to 1.1 cm in diameter. There are two conner, metallic threaded bolts that are 2.0 cm in length x 0.5 to 1.1 cm in diameter. There are four threaded bolts that are 2.6 cm in length x 0.6 to 1.5 cm in diameter. They bear the inscriptions [phone] 16 [id number], 3 16 [id number], 3 16 [id number] and 3 16 [id number]. There are three threaded conner, metallic bolt-like components that are 1.0 cm in length x 1.5 cm in diameter that there the inscription 54-2235 [id number], 54-2235 [id number] and 2235 [id number]. There are fourteen threaded conner, metallic components that are 2.9 cm in length x 0.6 to 1.4 cm in diameter, eight of which that bear the inscription [id number] 54-1152 CE. One bears the inscription [id number] 54-1152 CE and another [id number] 54-1152 CE. Two bare the inscription [id number] 54-1152 CE. Two bear the inscription [id number] 54-1152 CE. Lastly, there are four additional conner to black components that vary in size from 20.0 to 21.0 cm in length x 0.6 to 2.5 cm in diameter bearing inscriptions [id number] [id number] CE TLR STRUT-LONG 2 , 50-1090 [id number] CE TLR STRUT-LONG 2 , 50-80057 [id number] CE TLR STRUT-LONG 2 , and 50-35286 [id number] CE TLR STRUT-LONG 2. No sections are submitted for microscopic evaluation. Gross exam only. Yadira Wright./se:09/17/2024 Processing Lab: [address] [address] Interpretation Performed at [address] [id number] SURGICAL PATHOLOGY CONSULTATION Patient Name: RISA WARNER [facility] Rec: [id number] [facility] [employer] [facility] ANATOMIC PATHOLOGY [address] [place] [phone] Normal [facility] XR ANKLE LEFT (MIN 3 VIEWS)o n 09-14-2024 XR ANKLE LEFT (MIN 3 VIEWS) EXAMINATION: THREE XRAY VIEWS OF THE LEFT ANKLE; THREE XRAY VIEWS OF THE LEFT FOOT; XRAY VIEWS OF THE LEFT TIBIA AND FIBULA 09/14/2024 11:41 am COMPARISON: None. HISTORY: ORDERING SYSTEM PROVIDED HISTORY: post op HWR, midfoot hindfoot fusion, PACU TECHNOLOGIST PROVIDED HISTORY: post op HWR, midfoot hindfoot fusion, PACU Reason for Exam: Post op HWR, midfoot hindfoot fusion FINDINGS: Note that fine bony detail is obscured by overlying casting material. TIBIA/FIBULA: Interval removal of external fixation hardware. There is normal bone mineralization. There is normal alignment. There is no evidence of acute fracture or dislocation. No appreciable soft tissue abnormality. ANKLE: No new acute osseous abnormality. The ankle mortise is intact on these nonweightbearing views. No significant degenerative changes. There is questioned minimal anterior subluxation of the talus in relation to the distal tibia. FOOT: Postsurgical changes of midfoot-hindfoot fusion with three screws, the longest of which extends to the distal 1st metatarsal bone. Tarsal-metatarsal alignment is difficult to evaluate given overlying casting material. No lytic or blastic lesions present. IMPRESSION: 1. Postsurgical changes of the left foot without visualized complication. 2. Questioned minimal anterior subluxation of the talus in relation to the distal tibia. 3. Note that overlying casting material obscures fine bony detail. Interpreted by: Hollie Patiño MD Signed by: Hollie Patiño MD 09/14/24 Final result Normal [facility] XR FOOT LEFT (MIN 3 VIEWS)on 09-14-2024 XR FOOT LEFT (MIN 3 VIEWS) EXAMINATION: THREE XRAY VIEWS OF THE LEFT ANKLE; THREE XRAY VIEWS OF THE LEFT FOOT; XRAY VIEWS OF THE LEFT TIBIA AND FIBULA 09/14/2024 11:41 am COMPARISON: None. HISTORY: ORDERING SYSTEM PROVIDED HISTORY: post op HWR, midfoot hindfoot fusion, PACU TECHNOLOGIST PROVIDED HISTORY: post op HWR, midfoot hindfoot fusion, PACU Reason for Exam: Post op HWR, midfoot hindfoot fusion FINDINGS: Note that fine bony detail is obscured by overlying casting material. TIBIA/FIBULA: Interval removal of external fixation hardware. There is normal bone mineralization. There is normal alignment. There is no evidence of acute fracture or dislocation. No appreciable soft tissue abnormality. ANKLE: No new acute osseous abnormality. The ankle mortise is intact on these nonweightbearing views. No significant degenerative changes. There is questioned minimal anterior subluxation of the talus in relation to the distal tibia. FOOT: Postsurgical changes of midfoot-hindfoot fusion with three screws, the longest of which extends to the distal 1st metatarsal bone. Tarsal-metatarsal alignment is difficult to evaluate given overlying casting material. No lytic or blastic lesions present. IMPRESSION: 1. Postsurgical changes of the left foot without visualized complication. 2. Questioned minimal anterior subluxation of the talus in relation to the distal tibia. 3. Note that overlying casting material obscures fine bony detail. Interpreted by: Hollie Patiño MD Signed by: Hollie Patiño MD 09/14/24 Final result Normal [facility] XR TIBIA FIBULA LEFT (2 VIEW S)on 09-14-2024 XR TIBIA FIBULA LEFT (2 VIEWS) EXAMINATION: THREE XRAY VIEWS OF THE LEFT ANKLE; THREE XRAY VIEWS OF THE LEFT FOOT; XRAY VIEWS OF THE LEFT TIBIA AND FIBULA 09/14/2024 11:41 am COMPARISON: None. HISTORY: ORDERING SYSTEM PROVIDED HISTORY: post op HWR, midfoot hindfoot fusion, PACU TECHNOLOGIST PROVIDED HISTORY: post op HWR, midfoot hindfoot fusion, PACU Reason for Exam: Post op HWR, midfoot hindfoot fusion FINDINGS: Note that fine bony detail is obscured by overlying casting material. TIBIA/FIBULA: Interval removal of external fixation hardware. There is normal bone mineralization. There is normal alignment. There is no evidence of acute fracture or dislocation. No appreciable soft tissue abnormality. ANKLE: No new acute osseous abnormality. The ankle mortise is intact on these nonweightbearing views. No significant degenerative changes. There is questioned minimal anterior subluxation of the talus in relation to the distal tibia. FOOT: Postsurgical changes of midfoot-hindfoot fusion with three screws, the longest of which extends to the distal 1st metatarsal bone. Tarsal-metatarsal alignment is difficult to evaluate given overlying casting material. No lytic or blastic lesions present. IMPRESSION: 1. Postsurgical changes of the left foot without visualized complication. 2. Questioned minimal anterior subluxation of the talus in relation to the distal tibia. 3. Note that overlying casting material obscures fine bony detail. Interpreted by: Hollie Patiño MD Signed by: Hollie Patiño MD 09/14/24 Final result Normal [facility] Basic Metabolic Panelon 12-1 Anion gap [Moles/Vol] 13 mmol/L 9 - 16 mmol/L [facility] Calcium [Mass/Vol] 10.4 mg/dL 8.6 - 10. 4 mg/dL [facility] Chloride [Moles/Vol] 104 mmol/L 98 - 10 7 mmol/L [facility] CO2 [Moles/Vol] 25 mmol/L 20 - 31 mmol/L [facility] Creatinine [Mass/Vol] 1.1 mg/dL 0.7 - 1.2 mg/dL [facility] Est, Glom Filt Rate 61 - PINF [facility] Comment on above: These results are not [...] that affects renal tubular secretion. Glucose [Mass/Vol] 90 mg/dL 74 - 99 mg/dL [facility] Interpretation and review of laboratory results Abnormal [facility] Potassium [Moles/Vol] 4.8 mmol/L 3.7 - 5.3 mmol/L [facility] Comment on above: Specimen hemolysis h as exceeded the interference as defined by Amauri. Value may be falsely increased. Suggest recollection if clinically indicated. Sodium [Moles/Vol] 142 mmol/L 136 - 145 mmol/L [facility] Urea nitrogen [Mass/Vol] 27 mg/dL High 6 - 20 mg/dL [facility] Basic Metabolic Profon 09-07 Anion gap [Moles/Vol] 13 mmol/L Normal 9-16 [facility] Comment on above: Performed By: #### B MEGA, CDP ####[facility] [id number] [facility].[place], [place] [phone] Director: Ed Mcduffie DO Calcium [Mass/Vol] 10.4 mg/dL Normal 8.6-10.4 [facility] Comment on above: Performed By: #### B MEGA, CDP ####[facility] [id number] [facility].[place], [place] [phone] Director: Ed Mcduffie DO Chloride [Moles/Vol] 104 mmol/L Normal 98-107 [facility] Comment on above: Performed By: #### B MEGA, CDP ####[facility] [id number] [facility].[place], [place] [phone] Director: Ed Mcduffie DO CO2 [Moles/Vol] 25 mmol/L Normal 20-31 [facility] Comment on above: Performed By: #### B MEGA, CDP ####[facility] [id number] [address] [place] [address] Lab Director: Ed Mcduffie DO Creatinine [Mass/Vol] 1.1 mg/dL Normal 0.7-1.2 [facility] Comment on above: Performed By: #### B MEGA, CDP ####[facility] [id number] [facility].[place], [place] [phone] Director: Ed Mcduffie DO GFR/1.73 sq M.predicted among non-blacks MDRD (S/P/Bld) [Vol rate/Area] 61 mL/min/{1.73_m2} Normal >60 [facility] Comment on above: Result Comment: These [...] renal tubular secretion. Performed By: #### B MEGA, CDP ####[facility] [id number] [facility] [place] [address] Lab Director: Ed Mcduffie DO Glucose [Mass/Vol] 90 mg/dL Normal 74-99 [facility] Comment on above: Performed By: #### B MEGA, CDP ####[facility] [id number] [facility] [place] [address] Lab Director: Ed Mcduffie DO Potassium [Moles/Vol] 4.8 mmol/L Normal 3.7-5.3 [facility] Comment on above: Result Comment: Spec imen hemolysis has exceeded the interference as defined by Amauri. Value may be falsely increased. Suggest recollection if clinically indicated. Performed By: #### B MEGA, CDP ####[facility] [id number] [facility] [place] [address] Lab Director: Ed Mcduffie DO Sodium [Moles/Vol] 142 mmol/L Normal 136-145 [facility] Comment on above: Performed By: #### B MEGA, CDP ####[facility] [id number] [facility] [place] [address] Lab Director: Ed Mcduffie DO Urea nitrogen [Mass/Vol] 27 mg/dL High 6-20 [facility] Comment on above: Performed By: #### B MEGA, CDP ####[facility] [id number] [facility] [place] [address] Lab Director: Ed Mcduffie DO CBC with Auto Differentialon 09-07-2024 Basophils (Bld) [#/Vol] 0.10 10*3/uL [facility] Interpretation and review of laboratory results Abnormal Bon [facility] Lymphocytes/100 WBC (Bld) 3.20 % [facility] Monocytes/100 WBC (Bld) 0.70 % B on [facility] Neutrophils/100 WBC (Bld) 43 % 36 - 66 % [facility] Segmented neutrophils/100 WBC (Bld) 3.30 % [facility] WBC other (Bld) [#/Vol] 7.6 B on [facility] CBC with Diffon 09-07-2024 Abs. Basophil 0.10 k/uL Normal 0.0-0.2 [facility] Comment on above: Performed By: #### B MEGA, CDP ####[facility] [id number] [facility] [place] [address] Lab Director: Ed Mcduffie DO Abs.Neutrophil (Seg) 3.30 k/uL Normal 1.3-9.1 [facility] Comment on above: Performed By: #### B MEGA, CDP ####[facility] [id number] [facility] [place] [address] Lab Director: Ed Mcduffie DO Basophils/100 WBC (Bld) 1 % Normal 0-2 B on [facility] Comment on above: Performed By: #### B MEGA, CDP ####[facility] [id number] [facility] [place] [address] Lab Director: Ed Mcduffie DO Eosinophils (Bld) [#/Vol] 0.40 10*3/uL Normal 0.0-0.[address] [facility] Comment on above: Performed By: #### B MEAG, CDP ####[facility] [id number] [facility] [place] [address] Lab Director: Ed Mcduffie DO Eosinophils/100 WBC (Bld) 5 % High 0-[address] [facility] Comment on above: Performed By: #### Denisse AYOUB, CDP ####[facility] [id number] [facility] [place] [address] Lab Director: Ed Mcduffie DO Erythrocyte distribution width (RBC) [Ratio] 14.4 % Normal 11.5-14.[address] [facility] Comment on above: Performed By: #### B MEGA, CDP ####[address] [place] [address] Lab Director: Ed Mdcuffie DO Hematocrit (Bld) [Volume fraction] 35.3 % Low 36-[address] [facility] Comment on above: Performed By: #### Denisse AYOUB, CDP ####[place] [id number] [facility] [place] [address] Lab Director: Ed Mcduffie DO Hemoglobin (Bld) [Mass/Vol] 11.6 g/dL Low 12.0-16.[address] [facility] Comment on above: Performed By: #### Denisse AYOUB, CDP ####[address] [place] [address] Lab Director: Ed Mcduffie DO Lymphocytes (Bld) [#/Vol] 3.20 10*3/uL Normal 1.0-4.8 [facility] Comment on above: Performed By: #### Denisse AYOUB, CDP ####[address] [place] [address] Lab Director: Ed Mcduffie DO Lymphocytes/100 WBC (Bld) 42 % Normal 24-[address] [facility] Comment on above: Performed By: #### Denisse AYOUB, CDP ####[facility] [id number] [facility].[place], [place] [phone] Director: Ed Mcduffie DO MCH (RBC) [Entitic mass] 30.8 pg Normal 26-34 [facility] Comment on above: Performed By: #### B MEGA, CDP ####[facility] [id number] [facility].[place], [place] [phone] Director: Ed Mcduffie DO MCHC (RBC) [Mass/Vol] 32.9 g/dL Normal 31-37 Bon [facility] Comment on above: Performed By: #### B MEGA, CDP ####[address], [place] [phone] Director: Ed Mcduffie DO MCV (RBC) [Entitic vol] 93.5 fL Normal 80-100 B on [facility] Comment on above: Performed By: #### B MEGA, CDP ####[facility] [id number] [facility].[place], [place] [phone] Director: Ed Mcduffie DO Monocytes (Bld) [#/Vol] 0.70 10*3/uL Normal 0.1-1.3 [facility] Comment on above: Performed By: #### B MEGA, CDP ####[facility] [id number] [place] [address].[place], [place] [phone] Director: Ed Mcduffie DO Monocytes/100 WBC (Bld) 9 % High 1-7 B on [facility] Comment on above: Performed By: #### B MEGA, CDP ####[facility] [id number] [place] [address].[place], [place] [phone] Director: Ed Mcduffie DO Neutrophil (Seg) 43 % Normal 36-66 [facility] Comment on above: Performed By: #### B MEGA, CDP ####[facility] [id number] [place] [address].[place] [address] Lab Director: Ed Mcduffie DO Platelet mean volume (Bld) [Entitic vol] 7.3 fL Normal 6.0-12.[address] [facility] Comment on above: Performed By: #### B MEGA, CDP ####[facility] [id number] [facility].[place], [place] [phone] Director: Ed Mcduffie DO Platelets (Bld) [#/Vol] 447 10*3/uL Normal 150-[address] [facility] Comment on above: Performed By: #### Denisse AYOUB, CDP ####[facility] [id number] [facility].[place], [place] [phone] Director: Ed Mcduffie DO RBC (Bld) [#/Vol] 3.78 10*6/uL Low 4.0-5.2 [facility] Comment on above: Performed By: #### Denisse AYOUB, CDP ####[facility] [id number] [facility].[place], [place] [phone] Director: Ed Mcduffie DO WBC (Bld) [#/Vol] 7.6 10*3/uL Normal 3.5-11.0 [facility] Comment on above: Performed By: #### Denisse AYOUB, CDP ####[facility] [id number] [place] [address].[place], [place] [phone] Director: Ed Mcduffie DO CT FOOT LEFT WO CONTRASTon 1 11-04-2023 CT FOOT LEFT WO CONTRAST EXAMINATION: CT OF THE LEFT FOOT WITHOUT CONTRAST 08/31/2024 2:36 pm TECHNIQUE: CT of the left foot was performed without the administration of intravenous contrast. Multiplanar reformatted images are provided for review. Automated exposure control, iterative reconstruction, and/or weight based adjustment of the mA/kV was utilized to reduce the radiation dose to as low as reasonably achievable. COMPARISON: CT left foot 07/26/2024 and 07/13/2024 HISTORY ORDERING SYSTEM PROVIDED HISTORY: Closed dislocation of tarsal joint of left foot, initial encounter TECHNOLOGIST PROVIDED HISTORY: Is the patient ?->No FINDINGS: Examination is severely limited by hardware artifact. Status post external fixation of the foot and ankle. Fixation pins extend through the calcaneus, talus, navicular, cuneiforms, 1st and 2nd metatarsals, and 4th and tarsometatarsal joints. Overall alignment is unchanged from prior with persistent widening of the Lisfranc joint the and mild lateral subluxation of the 4th and 5th metatarsals. Known fractures are difficult to evaluate due to hardware artifact. Diffuse subcutaneous soft tissue edema. IMPRESSION: 1. Status post external fixation of the foot and ankle. Overall alignment is unchanged from prior with persistent widening of the Lisfranc joint and mild lateral subluxation of the 4th and 5th metatarsals.. 2. Known fractures are difficult to evaluate due to hardware artifact. Interpreted by: Xiomara Betts MD Signed by: Xiomara Betts MD 09/03/24 Final result Normal [facility] C-Reactive Proteinon 024 CRP High sensitivity method [Mass/Vol] 24.8 mg/L High 0.0 - 5.0 mg/L [facility] Interpretation and review of laboratory results Abnormal [facility] CRP [Mass/Vol] 24.8 mg/L High 0.0-5.0 [facility] Comment on above: Performed By: #### C RP ####[facility] [id number] [place] [address] [facility] Director: Ed Mcduffie DO CKon 07-26-2024 CK [Catalytic activity/Vol] 216 U/L High 26 - 192 U/L [facility] Interpretation and review of laboratory results Abnormal [facility] CT ANKLE LEFT WO CONTRASTon 07-26-2024 CT ANKLE LEFT WO CONTRAST EXAMINATION: CT OF THE LEFT ANKLE WITHOUT CONTRAST 07/26/2024 3:23 pm TECHNIQUE: CT of the left ankle was performed without the administration of intravenous contrast. Multiplanar reformatted images are provided for review. Automated exposure control, iterative reconstruction, and/or weight based adjustment of the mA/kV was utilized to reduce the radiation dose to as low as reasonably achievable. COMPARISON: None. HISTORY ORDERING SYSTEM PROVIDED HISTORY: [facility] ankle TECHNOLOGIST PROVIDED HISTORY: Ankle-hindfoot: Reformat Coronal reformats using axial images the level of the tibiofibular syndesmosis. Adjust coronal reformatted plain to bisected tibia and the fibula. Combination 2 mm. Oriented sagittal reformats plane using the same image, perpendicular to the coronal reformats plane. Collimation is 2mm Reason for exam:->charcot ankle Is the patient ?->No Reason for Exam: charcot ankle Additional signs and symptoms: pt has external fixator on lt lower extremity, post op fx FINDINGS: Bones: There is pinning of Charcot joint. 3 pins are noted. There is external fixation of the ankle joint with pins extending through the calcaneus and the cuneiforms. No evidence of acute fracture. The alignment is anatomic. No aggressive appearing osseous abnormality or periostitis. Soft Tissue: No significant soft tissue edema or fluid collections. Joint: No significant degenerative changes. No osseous erosions. IMPRESSION: Postoperative changes of the left ankle. Interpreted by: Ani Trejo MD Signed by: Ani Trejo MD 07/26/24 Final result Normal [facility] CT FOOT LEFT WO CONTRASTon 1 CT FOOT LEFT WO CONTRAST EXAMINATION: CT OF THE LEFT FOOT WITHOUT CONTRAST 07/26/2024 3:23 pm TECHNIQUE: CT of the left foot was performed without the administration of intravenous contrast. Multiplanar reformatted images are provided for review. Automated exposure control, iterative reconstruction, and/or weight based adjustment of the mA/kV was utilized to reduce the radiation dose to as low as reasonably achievable. COMPARISON: Radiograph from July 14, [address] from July 13 HISTORY ORDERING SYSTEM [facility] PROVIDED HISTORY: charcot ankle Is the patient ?->No Reason for Exam: charcot ankle Additional signs and symptoms: pt has external fixator on lt lower extremity, post op fx FINDINGS: External fixation of the foot and ankle. External fixation pins extending through midfoot bones, calcaneus, talus, navicular bones, and 1st and 2nd metatarsals.. No abnormal ankle joint effusion. Ankle mortise is congruent. No osteochondral lesion of the ankle joint. No intra-articular bodies are seen. Anterior and posterior subtalar joints are intact. Enthesophyte at the Achilles insertion site on the calcaneus. Fracture involving the medial base of the 2nd metatarsal and approximately 5 mm lateral subluxation of the base of the 2nd metatarsal. Lateral subluxation of the base of the 3rd metatarsal is also noted. Overall, improved alignment of the 2nd and 3rd metatarsal when compared to the prior radiograph. 4th metatarsal alignment is incompletely evaluated secondary to streak artifact. Possible mild lateral subluxation of base of the 4th metatarsal. Mild lateral subluxation of the base of the 5th metatarsal. This is similar if not mildly improved when compared to the prior radiograph. Soft tissue emphysema involving the Achilles tendon (series 8 images 145 through 189). Plantar aponeurosis appears to be intact suboptimal evaluation of the medial and lateral ankle tendons related to streak artifact from the surgical hardware. Extensor tendons appear to be grossly intact. IMPRESSION: External fixation of the foot and ankle post Lisfranc fracture dislocation. Fracture involving the medial base of the 2nd metatarsal and lateral subluxation of the base of the 2nd metatarsal. Overall, improved alignment of the 2nd and 3rd metatarsal when compared to the prior radiograph and CT. Mild lateral subluxation of the base of the 4th and 5th metatarsal. This is similar if not mildly improved when compared to the prior radiograph. Soft tissue emphysema involving the Achilles tendon. This may be related to the recent surgery. Additional findings noted above. Interpreted by: Jason Long MD Signed by: Jason Long MD 07/26/24 Final result Normal [facility] Creatine Kinaseon 07-26-2024 CK [Catalytic activity/Vol] 216 U/L High 26-192 [facility] Comment on above: Performed By: #### BRAD Flores #### [facility] [facility] [address] [place] [address] Livestock Rancher: Ed Mcduffie DO Glucose,Whole Bloodon 2023 Glucose [Mass/Vol] 278 mg/dL High 65-105 [facility] Glucose [Mass/Vol] 72 mg/dL Normal 65-105 [facility] Glucose [Mass/Vol] 180 mg/dL High 65-105 [facility] Glucose [Mass/Vol] 203 mg/dL High 65-105 [facility] POC Glucose Fingerstickon Glucose [Mass/Vol] 278 mg/dL High 65 - 105 mg/dL [facility] Interpretation and review of laboratory results Abnormal [facility] Glucose [Mass/Vol] 72 mg/dL 65 - 105 mg/dL [facility] Glucose [Mass/Vol] 180 mg/dL High 65 - 105 mg/dL [facility] Interpretation and review of laboratory results Abnormal [facility] Glucose [Mass/Vol] 203 mg/dL High 65 - 105 mg/dL [facility] Interpretation and review of laboratory results Abnormal [facility] Trop/Myoglobinon 07-26-2024 Interpretation and review of laboratory results Abnormal [facility] Myoglobin [Mass/Vol] 79 ng/mL High 25 - 58 ng/mL B on [facility] Troponin I.cardiac High sensitivity method [Mass/Vol] 23 ng/L High 0 - 14 ng/L [facility] Comment on above: High Sensitivity Tro ponin values cannot be compared with other Troponin methodologies. [facility] Myoglobin [Mass/Vol] 79 ng/mL High 25-58 [facility] Comment on above: Performed By: #### Lindsay Cooper, ROGERENZ #### [facility] [address] [place], [place] [id number] Livestock Rancher: Ed Mcduffie DO Troponin, High Sens 23 ng/L High 0-14 [facility] Comment on above: Result Comment: High Sensitivity Troponin values cannot be compared with other Troponin methodologies. Performed By: #### C K, ECENZ #### [facility] [address] [place] [address] Livestock Rancher: Ed Mcduffie DO CBC with Auto Differentialon 07-25-2024 Basophils (Bld) [#/Vol] 0.10 10*3/uL [facility] Basophils/100 WBC (Bld) 1 % 0 - 2 % B on [facility] Eosinophils (Bld) [#/Vol] 0.20 10*3/uL [facility] Eosinophils/100 WBC (Bld) 2 % 0 - 4 % [facility] Erythrocyte distribution width (RBC) [Ratio] 14.0 % 11.5 - 14.9 % [facility] Hematocrit (Bld) [Volume fraction] 33.2 % Low 36 - 46 % [facility] Hemoglobin (Bld) [Mass/Vol] 10.9 g/dL Low 12.0 - 16.0 g/dL [facility] Interpretation and review of laboratory results Abnormal [facility] Lymphocytes/100 WBC (Bld) 40 % 24 - 44 % [facility] Lymphocytes/100 WBC (Bld) 4.10 % [facility] MCH (RBC) [Entitic mass] 31.3 pg 26 - [address] [facility] MCHC (RBC) [Mass/Vol] 32.7 g/dL 31 - 37 g/dL B on [facility] MCV (RBC) [Entitic vol] 95.7 fL 80 - [address] [facility] Monocytes/100 WBC (Bld) 7 % 1 - 7 % B on [facility] Monocytes/100 WBC (Bld) 0.70 % B on [facility] Neutrophils/100 WBC (Bld) 50 % 36 - 66 % [facility] Platelet mean volume (Bld) [Entitic vol] 7.0 fL 6.0 - 12.[address] [facility] Platelets (Bld) [#/Vol] 460 10*3/uL High [facility] RBC (Bld) [#/Vol] 3.46 10*6/uL Low 4.0 - 5.2 m/uL [facility] Segmented neutrophils/100 WBC (Bld) 5.10 % [facility] WBC other (Bld) [#/Vol] 10.2 B on [facility] CBC with Diffon 07-25-2024 Abs. Basophil 0.10 k/uL Normal 0.0-0.2 [facility] Comment on above: Performed By: #### C DP, CP ####[facility] [id number] [place] [address] Lab Director: Ed Mcduffie DO Abs.Neutrophil (Seg) 5.10 k/uL Normal 1.3-9.1 [facility] Comment on above: Performed By: #### C DP, CP ####[facility] [id number] [place] [address] Lab Director: Ed Mcduffie DO Basophils/100 WBC (Bld) 1 % Normal 0-2 [facility] Comment on above: Performed By: #### C DP, CP ####[facility] [id number] [facility].[place], [place] [phone] Director: Ed Mcduffie DO Eosinophils (Bld) [#/Vol] 0.20 10*3/uL Normal 0.0-0.4 [facility] Comment on above: Performed By: #### C DP, CP ####[facility] [id number] [facility] [place] [address] Lab Director: Ed Mcduffie DO Eosinophils/100 WBC (Bld) 2 % Normal 0-4 [facility] Comment on above: Performed By: #### C DP, CP ####[facility] [id number] [place] [address].[place] [address] Lab Director: Ed Mcduffie DO Erythrocyte distribution width (RBC) [Ratio] 14.0 % Normal 11.5-14.9 [facility] Comment on above: Performed By: #### C DP, CP ####[facility] [id number] [facility] [place] [address] Lab Director: Ed Mcduffie DO Hematocrit (Bld) [Volume fraction] 33.2 % Low 36-46 [facility] Comment on above: Performed By: #### C DP, CP ####[facility] [id number] [place] [address] Lab Director: Ed Mcduffie DO Hemoglobin (Bld) [Mass/Vol] 10.9 g/dL Low 12.0-16.0 [facility] Comment on above: Performed By: #### C DP, CP ####[facility] [id number] [place], [place] [phone] Director: Ed Mcduffie DO Lymphocytes (Bld) [#/Vol] 4.10 10*3/uL Normal 1.0-4.8 [facility] Comment on above: Performed By: #### C DP, CP ####[facility] [id number] [place], [place] [phone] Director: Ed Mcduffie DO Lymphocytes/100 WBC (Bld) 40 % Normal 24-44 [facility] Comment on above: Performed By: #### C DP, CP ####[facility] [id number] [place], [place] [phone] Director: Ed Mcduffie DO MCH (RBC) [Entitic mass] 31.3 pg Normal 26-34 [facility] Comment on above: Performed By: #### C DP, CP ####[facility] [id number] [place], [place] [phone] Director: Ed Mcduffie DO MCHC (RBC) [Mass/Vol] 32.7 g/dL Normal 31-37 [facility] Comment on above: Performed By: #### C DP, CP ####[facility] [id number] [place] [address] [phone] Director: Ed Mcduffie DO MCV (RBC) [Entitic vol] 95.7 fL Normal 80-[address] [facility] Comment on above: Performed By: #### C DP, CP ####[facility] [id number] [facility].[place], [place] [phone] Director: Ed Mcduffie DO Monocytes (Bld) [#/Vol] 0.70 10*3/uL Normal 0.1-1.3 [facility] Comment on above: Performed By: #### C DP, CP ####[facility] [id number] [facility].[place], [place] [phone] Director: Ed Mcduffie DO Monocytes/100 WBC (Bld) 7 % Normal 1-[address] [facility] Comment on above: Performed By: #### C DP, CP ####[facility] [id number] [facility].[place], [place] [phone] Director: Ed Mcduffie DO Neutrophil (Seg) 50 % Normal 36-66 [facility] Comment on above: Performed By: #### C DP, CP ####[facility] [id number] [facility].[place], [place] [phone] Director: Ed Mcduffie DO Platelet mean volume (Bld) [Entitic vol] 7.0 fL Normal 6.0-12.0 [facility] Comment on above: Performed By: #### C DP, CP ####[facility] [id number] [place] [address] [phone] Director: Ed Mcduffie DO Platelets (Bld) [#/Vol] 460 10*3/uL High 150-450 [facility] Comment on above: Performed By: #### C DP, CP ####[facility] [id number] [place] [address].[place], [place] [phone] Director: Ed Mcduffie DO RBC (Bld) [#/Vol] 3.46 10*6/uL Low 4.0-5.2 [facility] Comment on above: Performed By: #### C DP, CP ####[facility] [id number] [place] [address] Lab Director: Ed Mcduffie DO WBC (Bld) [#/Vol] 10.2 10*3/uL Normal 3.5-11.0 [facility] Comment on above: Performed By: #### C DP, CP ####[facility] [id number] [place] [address] Lab Director: Ed Mcduffie DO Comp Metabolic Profon 2023 Albumin [Mass/Vol] 4.0 g/dL Normal 3.5-5.2 [facility] Comment on above: Performed By: #### Lindsay Cooper, ECENZ #### [facility] [address] [place] [address] Livestock Rancher: Ed Mcduffie DO Alkaline Phos 62 U/L Normal 35-104 [facility] Comment on above: Performed By: #### Lindsay Cooper, ECENZ #### [facility] [address] [place] [address] Livestock Rancher: Ed Mcduffie DO ALT [Catalytic activity/Vol] 12 U/L Normal 10-35 [facility] Comment on above: Performed By: #### Lindsay Cooper, ECENZ #### [facility] Lab [facility] [place] [address] Livestock Rancher: Ed Mcduffie DO Anion gap [Moles/Vol] 13 mmol/L Normal 9-16 [facility] Comment on above: Performed By: #### Lindsay Cooper, ECENZ #### [facility] [address] [place] [address] Livestock Rancher: Ed Mcduffie DO AST [Catalytic activity/Vol] 19 U/L Normal 10-35 [facility] Comment on above: Performed By: #### Lindsay Cooper, ECENZ #### [facility] [address] [facility] [place] [address] Livestock Rancher: Ed Mcduffie DO Bilirubin [Mass/Vol] mg/dL Normal 0.0-1.2 [facility] Comment on above: Performed By: #### Lindsay Cooper, ECENZ #### [facility] [place] [address] Livestock Rancher: Ed Mcduffie DO Calcium [Mass/Vol] 9.4 mg/dL Normal 8.6-10.4 [facility] Comment on above: Performed By: #### Lindsay Cooper, ECENZ #### [facility] [address] [place] [address]. [place] [address] Livestock Rancher: Ed Mcduffie DO Chloride [Moles/Vol] 99 mmol/L Normal 98-107 [facility] Comment on above: Performed By: #### Lindsay Cooper, ECENZ #### [facility] [address] [place] [address]. [place] [address] Livestock Rancher: Ed Mcduffie DO CO2 [Moles/Vol] 23 mmol/L Normal 20-31 [facility] Comment on above: Performed By: #### Lindsay oCoper, ECENZ #### [facility] [address] [place] [address]. [place] [address] Livestock Rancher: Ed Mcduffie DO Creatinine [Mass/Vol] 1.2 mg/dL Normal 0.7-1.2 [facility] Comment on above: Performed By: #### Lindsay Cooper, ECENZ #### [facility] [address] [place] [phone] Livestock Rancher: Ed Mcduffie DO GFR/1.73 sq M.predicted among non-blacks MDRD (S/P/Bld) [Vol rate/Area] 55 mL/min/{1.73_m2} Low >60 [facility] Comment on above: Result Comment: These [...] affects renal tubular secretion. Performed By: #### Lindsay Cooper, ECENZ #### [facility] [address] [place] [address]. [place] [address] Livestock Rancher: Ed Mcduffie, DO Glucose [Mass/Vol] 191 mg/dL High 74-99 [facility] Comment on above: Performed By: #### Lindsay Cooper, ECENZ #### [facility] [address] [place] [address]. [place] [address] Livestock Rancher: Ed Mcduffie DO Potassium [Moles/Vol] 4.6 mmol/L Normal 3.7-5.3 [facility] Comment on above: Performed By: #### Lindsay Cooper, ECENZ #### [facility] [address] [place] [address]. [place] [address] Livestock Rancher: Ed Mcduffie DO Protein [Mass/Vol] 7.1 g/dL Normal 6.6-8.7 [facility] Comment on above: Performed By: #### Lindsay Cooper, ECENZ #### [facility] [address] [place] [address]. [place] [address] Livestock Rancher: Ed Mcduffie DO Sodium [Moles/Vol] 135 mmol/L Low 136-145 [facility] Comment on above: Performed By: #### Lindsay Cooper, ECENZ #### [facility] [address] [place] [address]. [place] [address] Livestock Rancher: Ed Mcduffie DO Urea nitrogen [Mass/Vol] 38 mg/dL High 6-20 [facility] Comment on above: Performed By: #### Lindsay Cooper, ECENZ #### [facility] [address] [place] [address] Livestock Rancher: Ed Mcduffie DO [facility] 07-25-2024 Albumin [Mass/Vol] 4.0 g/dL 3.5 - 5.2 g/dL [facility] ALP [Catalytic activity/Vol] 62 U/L 35 - 104 U/L [facility] ALT [Catalytic activity/Vol] 12 U/L 10 - 35 U/L [facility] Anion gap [Moles/Vol] 13 mmol/L 9 - 16 mmol/L [facility] AST [Catalytic activity/Vol] 19 U/L 10 - 35 U/L [facility] Bilirubin [Mass/Vol] mg/dL 0.0 - 1 .2 mg/dL [facility] Calcium [Mass/Vol] 9.4 mg/dL 8.6 - 10. 4 mg/dL [facility] Chloride [Moles/Vol] 99 mmol/L 98 - 10 7 mmol/L [facility] CO2 [Moles/Vol] 23 mmol/L 20 - 31 mmol/L [facility] Creatinine [Mass/Vol] 1.2 mg/dL 0.7 - 1.2 mg/dL [facility] Est, Jarocho Filt Rate 55 Low - PINF [facility] Comment on above: These results are not [...] that affects renal tubular secretion. Glucose [Mass/Vol] 191 mg/dL High 74 - 99 mg/dL [facility] Interpretation and review of laboratory results Abnormal [facility] Potassium [Moles/Vol] 4.6 mmol/L 3.7 - 5.3 mmol/L [facility] Protein [Mass/Vol] 7.1 g/dL 6.6 - 8.7 g/dL [facility] Sodium [Moles/Vol] 135 mmol/L Low 136 - 145 mmol/L [facility] Urea nitrogen [Mass/Vol] 38 mg/dL High 6 - 20 mg/dL [facility] Glucose,Whole Bloodon 2023 Glucose [Mass/Vol] 180 mg/dL High 65-105 [facility] Glucose [Mass/Vol] 154 mg/dL High 65-105 [facility] Glucose [Mass/Vol] 138 mg/dL High 65-105 [facility] Glucose [Mass/Vol] 205 mg/dL High 65-105 [facility] POC Glucose Fingerstickon Glucose [Mass/Vol] 180 mg/dL High 65 - 105 mg/dL [facility] Interpretation and review of laboratory results Abnormal [facility] Glucose [Mass/Vol] 154 mg/dL High 65 - 105 mg/dL [facility] Interpretation and review of laboratory results Abnormal [facility] Glucose [Mass/Vol] 138 mg/dL High 65 - 105 mg/dL [facility] Interpretation and review of laboratory results Abnormal [facility] Glucose [Mass/Vol] 205 mg/dL High 65 - 105 mg/dL [facility] Interpretation and review of laboratory results Abnormal [facility] CBC with Auto Differentialon 07-24-2024 Basophils (Bld) [#/Vol] 0.10 10*3/uL [facility] Interpretation and review of laboratory results Abnormal [facility] Lymphocytes/100 WBC (Bld) 1.90 % [facility] Monocytes/100 WBC (Bld) 1.10 % B on [facility] Neutrophils/100 WBC (Bld) 79 % High 36 - 66 % [facility] Segmented neutrophils/100 WBC (Bld) 11.30 % High [facility] WBC other (Bld) [#/Vol] 14.4 High B on [facility] CBC with Diffon 07-24-2024 Basophils/100 WBC (Bld) 1 % Normal 0-2 B on [facility] Comment on above: Performed By: #### C MPX, CDP ####[facility] [id number] [place] [address] Lab Director: Ed Mcduffie DO Eosinophils (Bld) [#/Vol] 0.00 10*3/uL Normal 0.0-0.[address] [facility] Comment on above: Performed By: #### C MPX, CDP ####[address] [address] Lab Director: Ed Mcduffie DO Eosinophils/100 WBC (Bld) 0 % Normal 0-[address] [facility] Comment on above: Performed By: #### C MPX, CDP ####[address] [address] Lab Director: Ed Mcduffie DO Erythrocyte distribution width (RBC) [Ratio] 14.0 % Normal 11.5-14.[address] [facility] Comment on above: Performed By: #### C MEGAX, CDP ####[address] [address] Lab Director: Ed Mcduffie DO Hematocrit (Bld) [Volume fraction] 33.0 % Low 36-[address] [facility] Comment on above: Performed By: #### C MPX, CDP ####[address] [address] Lab Director: Ed Mcduffie DO Hemoglobin (Bld) [Mass/Vol] 10.8 g/dL Low 12.0-16.[address] [facility] Comment on above: Performed By: #### C MPX, CDP ####[address] [address] Lab Director: Ed Mcduffie DO Lymphocytes/100 WBC (Bld) 13 % Low 24-[address] [facility] Comment on above: Performed By: #### C MPX, CDP ####[facility] [id number] [place] [address] Lab Director: Ed Mcduffie DO MCH (RBC) [Entitic mass] 31.3 pg Normal 26-[address] [facility] Comment on above: Performed By: #### C MPX, CDP ####[address] [address] Lab Director: Ed Mcduffie DO MCHC (RBC) [Mass/Vol] 32.7 g/dL Normal 31-[address] [facility] Comment on above: Performed By: #### C MPX, CDP ####[address] [address] Lab Director: Ed Mcduffie DO MCV (RBC) [Entitic vol] 95.8 fL Normal 80-100 B on [facility] Comment on above: Performed By: #### C SHELBY, CDP ####[address] [address] Lab Director: Ed Mcduffie DO Monocytes/100 WBC (Bld) 7 % Normal 1-7 B on [facility] Comment on above: Performed By: #### C MEGAX, CDP ####[address] [address] Lab Director: Ed Mcduffie DO Platelet mean volume (Bld) [Entitic vol] 7.8 fL Normal 6.0-12.[address] [facility] Comment on above: Performed By: #### C MPX, CDP ####[address] [address] Lab Director: Ed Mcduffie DO Platelets (Bld) [#/Vol] 473 10*3/uL High 150-[address] [facility] Comment on above: Performed By: #### C MPX, CDP ####[facility] [id number], [place] [phone] Director: Ed Mcduffie DO RBC (Bld) [#/Vol] 3.45 10*6/uL Low 4.0-5.2 [facility] Comment on above: Performed By: #### C MPX, CDP ####[facility] [id number], [place] [phone] Director: Ed Mcduffie DO Abs. Basophil 0.10 k/uL Normal 0.0-0.2 [facility] Comment on above: Performed By: #### C MPX, CDP ####[facility] [id number] [facility].[place], [place] [phone] Director: Ed Mcduffie DO Abs.Neutrophil (Seg) 11.30 k/uL High 1.3-9.1 [facility] Comment on above: Performed By: #### C SHELBY, CDP ####[facility] [id number] [facility].[place], [place] [phone] Director: Ed Mcduffie DO Lymphocytes (Bld) [#/Vol] 1.90 10*3/uL Normal 1.0-4.8 [facility] Comment on above: Performed By: #### C MEGAX, CDP ####[facility] [id number] [facility].[place], [place] [phone] Director: Ed Mcduffie DO Monocytes (Bld) [#/Vol] 1.10 10*3/uL Normal 0.1-1.3 [facility] Comment on above: Performed By: #### C MPX, CDP ####[facility] [id number] [facility].[place], [place] [phone] Director: Ed Mcduffie DO Neutrophil (Seg) 79 % High 36-66 [facility] Comment on above: Performed By: #### C MPX, CDP ####[facility] [id number] [place], [place] [phone] Director: Ed Mcduffie DO WBC (Bld) [#/Vol] 14.4 10*3/uL High 3.5-11.0 [facility] Comment on above: Performed By: #### C MPX, CDP ####[facility] [id number] [place], [place] [phone] Director: Ed Mcduffie DO Comp Metabolic Pr/rfx MGon 1 0- Albumin [Mass/Vol] 3.9 g/dL Normal 3.5-5.2 [facility] Comment on above: Performed By: #### C MPX, CDP ####[facility] [id number] [place], [place] [phone] Director: Ed Mcduffie DO Alkaline Phos 60 U/L Normal 35-104 [facility] Comment on above: Performed By: #### C MEGAX, CDP ####[facility] [id number] [place], [place] [phone] Director: Ed Mcduffie DO ALT [Catalytic activity/Vol] 18 U/L Normal 10-35 [facility] Comment on above: Performed By: #### C MPX, CDP ####[facility] [id number] [place], [place] [phone] Director: Ed Mcduffie DO AST [Catalytic activity/Vol] 32 U/L Normal 10-35 [facility] Comment on above: Result Comment: SPEC IMEN SLIGHTLY HEMOLYZED, RESULTS MAY BE ADVERSELY AFFECTED. Performed By: #### C MPX, CDP ####[facility] [id number] [place] [address] Lab Director: Ed Mcduffie DO Potassium [Moles/Vol] 5.3 mmol/L Normal 3.7-5.3 [facility] Comment on above: Result Comment: SPEC IMEN SLIGHTLY HEMOLYZED, RESULTS MAY BE ADVERSELY AFFECTED. Performed By: #### C MPX, CDP ####[facility] [id number] [place] [address] Lab Director: Ed Mcduffie DO Anion gap [Moles/Vol] 12 mmol/L Normal 9-16 [facility] Comment on above: Performed By: #### C MPX, CDP ####[facility] [id number] [facility] [place] [address] Lab Director: Ed Mcduffie DO Bilirubin [Mass/Vol] mg/dL Normal 0.0-1.2 [facility] Comment on above: Performed By: #### C MPX, CDP ####[facility] [id number] [facility] [place] [address] Lab Director: Ed Mcduffie DO Calcium [Mass/Vol] 9.0 mg/dL Normal 8.6-10.4 [facility] Comment on above: Performed By: #### C MPX, CDP ####[facility] [id number] [facility] [place] [address] Lab Director: Ed Mcduffie DO Chloride [Moles/Vol] 103 mmol/L Normal 98-107 [facility] Comment on above: Performed By: #### C MPX, CDP ####[facility] [id number] [facility] [place] [address] Lab Director: Ed Mcduffie DO CO2 [Moles/Vol] 21 mmol/L Normal 20-31 [facility] Comment on above: Performed By: #### C MPX, CDP ####[facility] [id number] [facility] [place] [address] Lab Director: Ed Mcduffie DO Creatinine [Mass/Vol] 1.1 mg/dL Normal 0.7-1.2 [facility] Comment on above: Performed By: #### C MPX, CDP ####[facility] [id number] [place] [address] Lab Director: Ed Mcduffie DO GFR/1.73 sq M.predicted among non-blacks MDRD (S/P/Bld) [Vol rate/Area] 61 mL/min/{1.73_m2} Normal >60 [facility] Comment on above: Result Comment: These [...] renal tubular secretion. Performed By: #### C MPX, CDP ####[facility] [id number] [facility] [place] [address] Lab Director: Ed Mcduffie DO Glucose [Mass/Vol] 144 mg/dL High 74-99 [facility] Comment on above: Performed By: #### C MPX, CDP ####[facility] [id number] [facility] [place] [address] Lab Director: Ed Mcduffie DO Protein [Mass/Vol] 6.9 g/dL Normal 6.6-8.7 [facility] Comment on above: Performed By: #### C MPX, CDP ####[facility] [id number] [facility] [place] [address] lab Director: Ed Mcduffie DO Sodium [Moles/Vol] 136 mmol/L Normal 136-145 [facility] Comment on above: Performed By: #### C MPX, CDP ####[facility] [id number] [facility] [place] [address] Lab Director: Ed Mcduffie DO Urea nitrogen [Mass/Vol] 27 mg/dL High 6-20 [facility] Comment on above: Performed By: #### C MPX, CDP ####[facility] [id number] [facility] [place] [address] Lab Director: Ed Mcduffie DO Comprehensive Metabolic Pane l w/ Reflex to MGon 07-24-2024 Albumin [Mass/Vol] 3.9 g/dL 3.5 - 5.2 g/dL [facility] ALP [Catalytic activity/Vol] 60 U/L 35 - 104 U/L [facility] ALT [Catalytic activity/Vol] 18 U/L 10 - 35 U/L [facility] Anion gap [Moles/Vol] 12 mmol/L 9 - 16 mmol/L [facility] AST [Catalytic activity/Vol] 32 U/L 10 - 35 U/L [facility] Comment on above: SPECIMEN SLIGHTLY HE MOLYZED, RESULTS MAY BE ADVERSELY AFFECTED. Bilirubin [Mass/Vol] mg/dL 0.0 - 1 .2 mg/dL [facility] Calcium [Mass/Vol] 9.0 mg/dL 8.6 - 10. 4 mg/dL [facility] Chloride [Moles/Vol] 103 mmol/L 98 - 10 7 mmol/L [facility] CO2 [Moles/Vol] 21 mmol/L 20 - 31 mmol/L [facility] Creatinine [Mass/Vol] 1.1 mg/dL 0.7 - 1.2 mg/dL [facility] Est, Glom Filt Rate 61 - PINF [facility] Comment on above: These results are not [...] that affects renal tubular secretion. Glucose [Mass/Vol] 144 mg/dL High 74 - 99 mg/dL [facility] Interpretation and review of laboratory results Abnormal [facility] Potassium [Moles/Vol] 5.3 mmol/L 3.7 - 5.3 mmol/L [facility] Comment on above: SPECIMEN SLIGHTLY HE MOLYZED, RESULTS MAY BE ADVERSELY AFFECTED. Protein [Mass/Vol] 6.9 g/dL 6.6 - 8.7 g/dL [facility] Sodium [Moles/Vol] 136 mmol/L 136 - 145 mmol/L [facility] Urea nitrogen [Mass/Vol] 27 mg/dL High 6 - 20 mg/dL [facility] Glucose,Whole Bloodon 2023 Glucose [Mass/Vol] 150 mg/dL High 65-105 [facility] Glucose [Mass/Vol] 250 mg/dL High -105 [facility] Glucose [Mass/Vol] 224 mg/dL High 65-105 [facility] Glucose [Mass/Vol] 385 mg/dL High 65-105 [facility] Hemoglobin A1Con 07-24-2024 Average glucose Estimated from glycated hemoglobin (Bld) [Mass/Vol] 206 mg/dL [facility] Comment on above: The ADA and AACC rec ommend providing the estimated average glucose result to permit better patient understanding of their HBA1c result. HbA1c (Bld) [Mass fraction] 8.8 % High 4.0 - 6.0 % [facility] Interpretation and review of laboratory results Abnormal [facility] Glucose [Mass/Vol] 206 mg/dL Normal [facility] Comment on above: Result Comment: The ADA and AACC recommend providing the estimated average glucose result to permit better patient understanding of their HBA1c result. Performed By: #### BRAD Flores #### [facility] [address] [place] [address] Livestock Rancher: Ed Mcduffie DO HbA1c (Bld) [Mass fraction] 8.8 % High 4.0-6.0 [facility] Comment on above: Performed By: #### Lindsay Cooper, ECENZ #### [facility] [address] [place] [address] Livestock Rancher: Ed Mcduffie DO No Panel Informationon 07-[address] [facility] POC Glucose Fingerstickon Glucose [Mass/Vol] 150 mg/dL High 65 - 105 mg/dL [facility] Interpretation and review of laboratory results Abnormal [facility] Glucose [Mass/Vol] 250 mg/dL High 65 - 105 mg/dL [facility] Interpretation and review of laboratory results Abnormal [facility] Glucose [Mass/Vol] 224 mg/dL High 65 - 105 mg/dL [facility] Interpretation and review of laboratory results Abnormal [facility] Glucose [Mass/Vol] 385 mg/dL High 65 - 105 mg/dL [facility] Interpretation and review of laboratory results Abnormal [facility] Prealbuminon 07-24-2024 Prealbumin [Mass/Vol] 27.5 mg/dL 20.0 - 40.0 mg/dL [facility] Prealbumin [Mass/Vol] 27.5 mg/dL Normal 20.0-40.0 [facility] Comment on above: Performed By: #### Lindsay Cooper, ECENZ #### [facility] [address] [place] [address] Livestock Rancher: Ed Mcduffie DO Sedimentation Rateon 024 ESR Photometric method (Bld) [Velocity] 25 [facility] Sedimentation Rate 25 mm/Hr Normal 0-30 [facility] Comment on above: Performed By: #### Lindsay Cooper, ECENZ #### [facility] [address] [place] [address] Livestock Rancher: Ed Mcduffie DO Vitamin D 25 Hydroxyon 07-24 25-hydroxyvitamin D3 [Mass/Vol] ng/mL Low 30.0 - 100.0 ng/mL [facility] Comment on above: Reference Range: Vitamin D status Range Deficiency <20 ng/mL Mild Deficiency 20-30 ng/mL Sufficiency 30-100 ng/mL Toxicity >100 ng/mL Interpretation and review of laboratory results Abnormal [facility] Vitamin D 25 OHon 07-24-2024 Vitamin D 25 [place] <6.0 Low 30.0-100.0 [facility] Comment on above: Result Comment: Reference Range: Vitamin D status Range Deficiency <20 ng/mL Mild Deficiency 20-30 ng/mL Sufficiency 30-100 ng/mL Toxicity >100 ng/mL Performed By: #### C K, ECENZ #### [facility] [address] [facility] [place] [address] Livestock Rancher: Ed Mcduffie DO FLUORO FOR SURGICAL PROCEDUR ESon 07-23-2024 FLUORO FOR SURGICAL PROCEDURES Radiology exam is complete. No Radiologist dictation. Please follow up with ordering provider. Final result Normal [facility] Glucose,Whole Bloodon 2023 Glucose [Mass/Vol] 408 mg/dL Critically high 65-105 [facility] Comment on above: Result Comment: Kae son Noted Glucose [Mass/Vol] 284 mg/dL High 65-105 [facility] Glucose [Mass/Vol] 188 mg/dL High 65-105 [facility] Guidance-- during surgeryon 07-23-2024 Radiology exam is complete. No Radiologist dictation. Please follow up with ordering provider. [facility] RIS CONSOLIDATED K (Potassium)on 07-23-2024 Potassium [Moles/Vol] 5.5 mmol/L High 3.7-5.3 [facility] Comment on above: Performed By: #### K ####[facility] [id number] [facility].[place], [place] [id number] Lab Director: Ed Mcduffie DO No Panel Informationon 07-23 Postoperative left leg, ankle and foot radiographs. [facility] RIS CONSOLIDATED EXAMINATION: THREE XRAY VIEWS OF THE LEFT ANKLE; THREE XRAY VIEWS OF THE LEFT FOOT; 2 XRAY VIEWS OF THE LEFT TIBIA AND FIBULA 07/23/2024 6:51 pm; 07/23/2024 6:52 pm COMPARISON: None. HISTORY: ORDERING SYSTEM PROVIDED HISTORY: post op exfix TECHNOLOGIST PROVIDED HISTORY: post op exfix Reason for Exam: Post-op exfix of left foot/ankle. FINDINGS: Postoperative radiographs of the left tibia fibula, ankle and foot were obtained. There are several metallic nails fixating metatarsal base and tarsal fractures. The Lisfranc joint space is mildly widened, though improved compared to the prior study. A halo like external fixation device surrounds the lower leg, ankle and foot. [facility] Carlos Gibbons MD - 07/23/2024 EXAMINATION: THREE XRAY VIEWS OF THE LEFT ANKLE; THREE XRAY VIEWS OF THE LEFT FOOT; 2 XRAY VIEWS OF THE LEFT TIBIA AND FIBULA 07/23/2024 6:51 pm; 07/23/2024 6:52 pm COMPARISON: None. HISTORY: ORDERING SYSTEM PROVIDED HISTORY: post op exfix TECHNOLOGIST PROVIDED HISTORY: post op exfix Reason for Exam: Post-op exfix of left foot/ankle. FINDINGS: Postoperative radiographs of the left tibia fibula, ankle and foot were obtained. There are several metallic nails fixating metatarsal base and tarsal fractures. The Lisfranc joint space is mildly widened, though improved compared to the prior study. A halo like external fixation device surrounds the lower leg, ankle and foot. IMPRESSION: Postoperative left leg, ankle and foot radiographs. [facility] No Panel InformationOrdered By: Carlos Orta on 07-23-[address] [facility] Work Phone: POC Glucose Fingerstickon Glucose [Mass/Vol] 408 mg/dL Critically high 65 - 1 05 mg/dL [facility] Comment on above: Critical Noted Interpretation and review of laboratory results Abnormal [facility] Glucose [Mass/Vol] 284 mg/dL High 65 - 105 mg/dL [facility] Interpretation and review of laboratory results Abnormal [facility] Glucose [Mass/Vol] 188 mg/dL High 65 - 105 mg/dL [facility] Interpretation and review of laboratory results Abnormal [facility] Potassiumon 07-23-2024 Interpretation and review of laboratory results Abnormal [facility] Potassium [Moles/Vol] 5.5 mmol/L High 3.7 - 5.3 mmol/L [facility] XR ANKLE LEFT (MIN 3 VIEWS)o n 07-23-2024 XR ANKLE LEFT (MIN 3 VIEWS) EXAMINATION: THREE XRAY VIEWS OF THE LEFT ANKLE; THREE XRAY VIEWS OF THE LEFT FOOT; 2 XRAY VIEWS OF THE LEFT TIBIA AND FIBULA 07/23/2024 6:51 pm; 07/23/2024 6:52 pm COMPARISON: None. HISTORY: ORDERING SYSTEM PROVIDED HISTORY: post op exfix TECHNOLOGIST PROVIDED HISTORY: post op exfix Reason for Exam: Post-op exfix of left foot/ankle. FINDINGS: Postoperative radiographs of the left tibia fibula, ankle and foot were obtained. There are several metallic nails fixating metatarsal base and tarsal fractures. The Lisfranc joint space is mildly widened, though improved compared to the prior study. A halo like external fixation device surrounds the lower leg, ankle and foot. IMPRESSION: Postoperative left leg, ankle and foot radiographs. Interpreted by: Carlos Orta MD Signed by: Carlos Orta MD 07/23/24 Final result Normal [facility] XR Ankle - left 3 Viewson Radiology Study observation (narrative) [facility] XR FOOT LEFT (MIN 3 VIEWS)on 07-23-2024 XR FOOT LEFT (MIN 3 VIEWS) EXAMINATION: THREE XRAY VIEWS OF THE LEFT ANKLE; THREE XRAY VIEWS OF THE LEFT FOOT; 2 XRAY VIEWS OF THE LEFT TIBIA AND FIBULA 07/23/2024 6:51 pm; 07/23/2024 6:52 pm COMPARISON: None. HISTORY: ORDERING SYSTEM PROVIDED HISTORY: post op exfix TECHNOLOGIST PROVIDED HISTORY: post op exfix Reason for Exam: Post-op exfix of left foot/ankle. FINDINGS: Postoperative radiographs of the left tibia fibula, ankle and foot were obtained. There are several metallic nails fixating metatarsal base and tarsal fractures. The Lisfranc joint space is mildly widened, though improved compared to the prior study. A halo like external fixation device surrounds the lower leg, ankle and foot. IMPRESSION: Postoperative left leg, ankle and foot radiographs. Interpreted by: Carlos Orta MD Signed by: Carlos Orta MD 07/23/24 Final result Normal [facility] XR Foot - left 3 Viewson Radiology Study observation (narrative) [facility] IntY XR TIBIA FIBULA LEFT (2 VIEW S)on 07-23-2024 XR TIBIA FIBULA LEFT (2 VIEWS) EXAMINATION: THREE XRAY VIEWS OF THE LEFT ANKLE; THREE XRAY VIEWS OF THE LEFT FOOT; 2 XRAY VIEWS OF THE LEFT TIBIA AND FIBULA 07/23/2024 6:51 pm; 07/23/2024 6:52 pm COMPARISON: None. HISTORY: ORDERING SYSTEM PROVIDED HISTORY: post op exfix TECHNOLOGIST PROVIDED HISTORY: post op exfix Reason for Exam: Post-op exfix of left foot/ankle. FINDINGS: Postoperative radiographs of the left tibia fibula, ankle and foot were obtained. There are several metallic nails fixating metatarsal base and tarsal fractures. The Lisfranc joint space is mildly widened, though improved compared to the prior study. A halo like external fixation device surrounds the lower leg, ankle and foot. IMPRESSION: Postoperative left leg, ankle and foot radiographs. Interpreted by: Carlos Orta MD Signed by: Carlos Orta MD 07/23/24 Final result Normal [facility] XR Tibia and Fibula - left 2 Viewson 07-23-2024 Radiology Study observation (narrative) [facility] IntY Basic Metabolic Panelon 06-27 Anion gap [Moles/Vol] 13 mmol/L 9 - 16 mmol/L [facility] [employer] Calcium [Mass/Vol] 9.6 mg/dL 8.6 - 10. 4 mg/dL [facility] [employer] Chloride [Moles/Vol] 101 mmol/L 98 - 10 7 mmol/L [facility] [employer] CO2 [Moles/Vol] 21 mmol/L 20 - 31 mmol/L [facility] [employer] Creatinine [Mass/Vol] 1.1 mg/dL High 0.50 - 0.90 mg/dL [facility] [employer] Est, Glom Filt Rate 64 - PINF [facility] Comment on above: These results are not [...] that affects renal tubular secretion. Glucose [Mass/Vol] 365 mg/dL High 74 - 99 mg/dL [facility] Interpretation and review of laboratory results Abnormal [facility] Potassium [Moles/Vol] 5.8 mmol/L High 3.7 - 5.3 mmol/L [facility] Sodium [Moles/Vol] 135 mmol/L Low 136 - 145 mmol/L [facility] Urea nitrogen [Mass/Vol] 30 mg/dL High 6 - 20 mg/dL [facility] Basic Metabolic Profon 07-18 Anion gap [Moles/Vol] 13 mmol/L Normal 9-16 [facility] Comment on above: Performed By: #### B MP ####[facility] [place], [place] [phone] Director: Melvin Santoyo MD#### CDP ####[facility] [id number] [place], [place] [phone] Director: Ed Mcduffie, DO Calcium [Mass/Vol] 9.6 mg/dL Normal 8.6-10.4 [facility] Comment on above: Performed By: #### B MP ####[facility] [address] [place], [place] [phone] Director: Melvin Santoyo MD#### CDP ####[facility] [id number] [place], [place] [phone] Director: Ed Mcduffie, DO Chloride [Moles/Vol] 101 mmol/L Normal 98-107 [facility] Comment on above: Performed By: #### B MP ####[facility] [place], [place] [phone] Director: Melvin Santoyo MD#### CDP ####[facility] [id number] [facility].[place], [place] [phone] Director: Ed Mcduffie DO CO2 [Moles/Vol] 21 mmol/L Normal 20-31 [facility] Comment on above: Performed By: #### B MP ####[address] [phone])[phone] Director: Melvin Santoyo MD#### CDP ####[facility] [id number] [place], [place] [phone] Director: Ed Mcduffie DO Creatinine [Mass/Vol] 1.1 mg/dL High 0.50-0.90 [facility] Comment on above: Performed By: #### B MP ####[address] [phone] Director: Melvin Santoyo MD#### CDP ####[facility] [id number] [place], [place] [phone] Director: Ed Mcduffie DO GFR/1.73 sq M.predicted among non-blacks MDRD (S/P/Bld) [Vol rate/Area] 64 mL/min/{1.73_m2} Normal >60 [facility] Comment on above: Result Comment: These [...] tubular secretion. Performed By: #### B MP ####[address] [phone] Director: Melvin Santoyo MD#### CDP ####[facility] [id number] [facility] [place] [address] Lab Director: Ed Mcduffie DO Glucose [Mass/Vol] 365 mg/dL High 74-99 [facility] Comment on above: Performed By: #### B MP ####[address] [place] [address] Lab Director: Melvin Santoyo MD#### CDP ####[facility] [id number] [place], [place] [phone] Director: Ed Mcduffie DO Potassium [Moles/Vol] 5.8 mmol/L High 3.7-5.3 [facility] Comment on above: Performed By: #### B MP ####[address] [phone] Director: Melvin Santoyo MD#### CDP ####[facility] [id number] [facility] [place] [phone] Director: Ed Mcduffie DO Sodium [Moles/Vol] 135 mmol/L Low 136-145 [facility] Comment on above: Performed By: #### B MP ####[address] [address] Lab Director: Melvin Santoyo MD#### CDP ####[facility] [id number] [place], [place] [phone] Director: Ed Mcduffie DO Urea nitrogen [Mass/Vol] 30 mg/dL High 6-20 [facility] Comment on above: Performed By: #### B MP ####[address] [phone] Director: Melvin Santoyo MD#### CDP ####[facility] [id number] [place] [address] [place] [address] [facility] Director: Ed Mcduffie, CBC with Auto Differentialon 07-18-2024 Basophils (Bld) [#/Vol] 0.10 10*3/uL [facility] Basophils/100 WBC (Bld) 1 % 0 - 2 % [facility] Eosinophils (Bld) [#/Vol] 0.40 10*3/uL [facility] Eosinophils/100 WBC (Bld) 6 % High 0 - 4 % [facility] Erythrocyte distribution width (RBC) [Ratio] 14.2 % 11.5 - 14.9 % [facility] Hematocrit (Bld) [Volume fraction] 36.3 % 36 - 46 % [facility] Hemoglobin (Bld) [Mass/Vol] 12.2 g/dL 12.0 - 16.0 g/dL [facility] Interpretation and review of laboratory results Abnormal [facility] Lymphocytes/100 WBC (Bld) 36 % 24 - 44 % [facility] Lymphocytes/100 WBC (Bld) 2.50 % [facility] MCH (RBC) [Entitic mass] 32.0 pg 26 - [address] MCHC (RBC) [Mass/Vol] 33.7 g/dL 31 - 37 g/dL [facility] MCV (RBC) [Entitic vol] 94.9 fL 80 - 100 fL [facility] Monocytes/100 WBC (Bld) 6 % 1 - 7 % [facility] Monocytes/100 WBC (Bld) 0.40 % [facility] Neutrophils/100 WBC (Bld) 51 % 36 - 66 % [facility] Platelet mean volume (Bld) [Entitic vol] 7.7 fL 6.0 - 12.0 fL [facility] Platelets (Bld) [#/Vol] 514 10*3/uL High [facility] RBC (Bld) [#/Vol] 3.82 10*6/uL Low 4.0 - 5.2 m/uL [facility] Segmented neutrophils/100 WBC (Bld) 3.60 % [facility] WBC other (Bld) [#/Vol] 7.0 B on [facility] Bon [facility] CBC with Diffon 07-18-2024 Abs. Basophil 0.10 k/uL Normal 0.0-0.2 [facility] Comment on above: Performed By: #### B MP ####[address] [address] Lab Director: Melvin Santoyo MD#### CDP ####[facility] [id number] [place] [address] Lab Director: Ed Mcduffie DO Abs.Neutrophil (Seg) 3.60 k/uL Normal 1.3-9.1 [facility] Comment on above: Performed By: #### B MP ####[address] [address] Lab Director: Melvin Santoyo MD#### CDP ####[facility] [id number] [place], [place] [phone] Director: Ed Mcduffie DO Basophils/100 WBC (Bld) 1 % Normal 0-[address] [facility] Comment on above: Performed By: #### B MP ####[address] [address] Lab Director: Melvin Santoyo MD#### CDP ####[facility] [id number] [place], [place] [phone] Director: Ed Mcduffie DO Eosinophils (Bld) [#/Vol] 0.40 10*3/uL Normal 0.0-0.4 [facility] Comment on above: Performed By: #### B MP ####[address] [phone] Director: Melvin Santoyo MD#### CDP ####[facility] [id number] [place] [address] Lab Director: Ed Mcduffie DO Eosinophils/100 WBC (Bld) 6 % High 0-4 [facility] Comment on above: Performed By: #### B MP ####[address] [address] Lab Director: Melvin Santoyo MD#### CDP ####[facility] [id number] [place] [address] Lab Director: Ed Mcduffie DO Erythrocyte distribution width (RBC) [Ratio] 14.2 % Normal 11.5-14.9 [facility] Comment on above: Performed By: #### B MP ####[address] [address] Lab Director: Melvin Santoyo MD#### CDP ####[address] [address] Lab Director: Ed Mcduffie DO Hematocrit (Bld) [Volume fraction] 36.3 % Normal 36-46 [facility] Comment on above: Performed By: #### B MP ####[address] [address] Lab Director: Melvin Santoyo MD#### CDP ####[facility] [id number] [place] [address] Lab Director: Ed Mcduffie DO Hemoglobin (Bld) [Mass/Vol] 12.2 g/dL Normal 12.0-16.0 [facility] Comment on above: Performed By: #### B MP ####[address] [address] Lab Director: Melvin Santoyo MD#### CDP ####[facility] [id number] [place] [address] Lab Director: Ed Mcduffie DO Lymphocytes (Bld) [#/Vol] 2.50 10*3/uL Normal 1.0-4.8 [facility] Comment on above: Performed By: #### B MP ####[address] [phone] Director: Melvin Santoyo MD#### CDP ####[facility] [id number] [place], [place] [phone] Director: Ed Mcduffie DO Lymphocytes/100 WBC (Bld) 36 % Normal 24-44 [facility] Comment on above: Performed By: #### B MP ####[address] [phone] Director: Melvin Santoyo MD#### CDP ####[address] [address])[phone] Director: Ed Mcduffie DO MCH (RBC) [Entitic mass] 32.0 pg Normal 26-34 [facility] Comment on above: Performed By: #### B MP ####[address] [phone] Director: Melvin Santoyo MD#### CDP ####[address] [address])[phone] Director: Ed Mcduffie DO MCHC (RBC) [Mass/Vol] 33.7 g/dL Normal 31-37 [facility] Comment on above: Performed By: #### B MP ####[address] [phone] Director: Melvin Santoyo MD#### CDP ####[address] [phone] Director: Ed Mcduffie DO MCV (RBC) [Entitic vol] 94.9 fL Normal 80-[address] [facility] Comment on above: Performed By: #### B MP ####[address] [phone] Director: Melvin Santoyo MD#### CDP ####[facility] [id number] [place], [place] [phone] Director: Ed Mcduffie DO Monocytes (Bld) [#/Vol] 0.40 10*3/uL Normal 0.1-1.3 [facility] Comment on above: Performed By: #### B MP ####[address] [phone] Director: Melvin Santoyo MD#### CDP ####[address] [address] [address])[phone] Director: Ed Mcduffie DO Monocytes/100 WBC (Bld) 6 % Normal 1-[address] [facility] Comment on above: Performed By: #### B MP ####[address] [id number])[phone] Director: Melvin Santoyo MD#### CDP ####[facility] [id number] [place] [address] [phone] Director: Ed Mcduffie DO Neutrophil (Seg) 51 % Normal 36-66 [facility] Comment on above: Performed By: #### B MP ####[address] [id number])[phone] Director: Melvin Santoyo MD#### CDP ####[facility] [id number] [place] [address] [phone] Director: Ed Mcduffie DO Platelet mean volume (Bld) [Entitic vol] 7.7 fL Normal 6.0-12.0 [facility] Comment on above: Performed By: #### B MP ####[facility] [place], [place] [phone] Director: Melvin Santoyo MD#### CDP ####[facility] [id number] [place], [place] [phone] Director: Ed Mcduffie DO Platelets (Bld) [#/Vol] 514 10*3/uL High 150-450 [facility] Comment on above: Performed By: #### B MP ####[address] [phone] Director: Melvin Santoyo MD#### CDP ####[facility] [id number] [place], [place] [phone] Director: Ed Mcduffie DO RBC (Bld) [#/Vol] 3.82 10*6/uL Low 4.0-5.2 [facility] Comment on above: Performed By: #### B MP ####[address] [phone] Director: Melvin Santoyo MD#### CDP ####[facility] [id number] [place], [place] [phone] Director: Ed Mcduffie DO WBC (Bld) [#/Vol] 7.0 10*3/uL Normal 3.5-11.0 [facility] Comment on above: Performed By: #### B MP ####[address] [id number])[phone] Director: Melvin Santoyo MD#### CDP ####[facility] [id number] [place], [place] [phone] Director: Ed Mcduffie DO XR FOOT LEFT (MIN 3 VIEWS)on 07-14-2024 XR FOOT LEFT (MIN 3 VIEWS) EXAMINATION: THREE XRAY VIEWS OF THE LEFT FOOT 07/14/2024 12:15 am COMPARISON: Left foot radiographs and CT 07/13/2024. HISTORY: ORDERING SYSTEM PROVIDED HISTORY: Lisfranc dislocation TECHNOLOGIST PROVIDED HISTORY: Lisfranc dislocation FINDINGS: Normal osseous mineralization. Fractures of the cuneiforms and 2nd metatarsal are better visualized on comparison CT. Redemonstrated widening of the 1st distal metatarsal space compatible with Lisfranc ligament injury. There is dorsal subluxation of the 2nd metatarsal base, lateral subluxation of the 2nd through 5th metatarsal bases, and likely subtle anterior subluxation of the middle cuneiform relative to the medial cuneiform. There is soft tissue swelling or around the midfoot and forefoot. No large ankle joint effusion. IMPRESSION: 1. Redemonstrated findings compatible with a Lisfranc ligament injury, with midfoot dislocation. 2. Fractures of the cuneiforms and 2nd metatarsal are better visualized on comparison CT. Interpreted by: Yusuf Singh MD Signed by: Yusuf Singh MD 07/14/24 Final result Normal [facility] XR Foot - left 3 Viewson 1. Redemonstrated findings compatible with a Lisfranc ligament injury, with midfoot dislocation. 2. Fractures of the cuneiforms and 2nd metatarsal are better visualized on comparison CT. [facility] CONSOLIDATED EXAMINATION: THREE XRAY VIEWS OF THE LEFT FOOT 07/14/2024 12:15 am COMPARISON: Left foot radiographs and CT 07/13/2024. HISTORY: ORDERING SYSTEM PROVIDED HISTORY: Lisfranc dislocation TECHNOLOGIST PROVIDED HISTORY: Lisfranc dislocation FINDINGS: Normal osseous mineralization. Fractures of the cuneiforms and 2nd metatarsal are better visualized on comparison CT. Redemonstrated widening of the 1st distal metatarsal space compatible with Lisfranc ligament injury. There is dorsal subluxation of the 2nd metatarsal base, lateral subluxation of the 2nd through 5th metatarsal bases, and likely subtle anterior subluxation of the middle cuneiform relative to the medial cuneiform. There is soft tissue swelling or around the midfoot and forefoot. No large ankle joint effusion. [facility] CONSOLIDATED Yusuf Singh MD - 07/14/2024 EXAMINATION: THREE XRAY VIEWS OF THE LEFT FOOT 07/14/2024 12:15 am COMPARISON: Left foot radiographs and CT 07/13/2024. HISTORY: ORDERING SYSTEM PROVIDED HISTORY: Lisfranc dislocation TECHNOLOGIST PROVIDED HISTORY: Lisfranc dislocation FINDINGS: Normal osseous mineralization. Fractures of the cuneiforms and 2nd metatarsal are better visualized on comparison CT. Redemonstrated widening of the 1st distal metatarsal space compatible with Lisfranc ligament injury. There is dorsal subluxation of the 2nd metatarsal base, lateral subluxation of the 2nd through 5th metatarsal bases, and likely subtle anterior subluxation of the middle cuneiform relative to the medial cuneiform. There is soft tissue swelling or around the midfoot and forefoot. No large ankle joint effusion. IMPRESSION: 1. Redemonstrated findings compatible with a Lisfranc ligament injury, with midfoot dislocation. 2. Fractures of the cuneiforms and 2nd metatarsal are better visualized on comparison CT. [facility] Radiology Study observation (narrative) [facility] XR Foot - left 3 ViewsOrdere d By: Yusuf Singh on 07-14-[address] [facility] Work Phone: CT FOOT LEFT WO CONTRASTon 1 CT FOOT LEFT WO CONTRAST EXAMINATION: CT OF THE LEFT FOOT WITHOUT CONTRAST 07/13/2024 3:08 pm TECHNIQUE: CT of the left foot was performed without the administration of intravenous contrast. Multiplanar reformatted images are provided for review. Automated exposure control, iterative reconstruction, and/or weight based adjustment of the mA/kV was utilized to reduce the radiation dose to as low as reasonably achievable. COMPARISON: Radiographs HISTORY ORDERING SYSTEM PROVIDED HISTORY: Left foot pain/swelling TECHNOLOGIST PROVIDED HISTORY: Left foot pain/swelling Decision Support Exception - unselect if not a suspected or confirmed emergency medical condition->Emergenc y Medical Condition (MA) Is the patient ?->No FINDINGS: Bones: Severely comminuted fracture of the medial cuneiform. There are multiple small osseous fragments medial and lateral to the fracture components. Negative for dislocation. Fracture at the proximal aspect of the 2nd metatarsal. This is from the medial aspect. There is also small osseous fragments at the lateral aspect of the 2nd metatarsal between the 2nd and 3rd metatarsals as well as between the 2nd metatarsal and the middle cuneiform. The 2nd metatarsal is dislocated dorsally with respect to the medial cuneiform as well as laterally. Small osseous fragments at the dorsal aspect of the 4th and 5th metatarsals. These are very subtle. Fracture at the middle cuneiform. It is fragmented at the plantar surface. Tiny bone fragment between the middle and medial cuneiforms. Fracture of the plantar aspect of the lateral cuneiform. The cuboid appears to be intact. Talus is intact. Navicular is intact. Dislocation of the midfoot which was noted on the radiograph. There is lateral displacement of the 2nd metatarsal with respect to the middle cuneiform. The remainder of the metatarsals are displaced laterally. The 1st tarsometatarsal joint is intact. Soft Tissue: Diffuse edema in the subcutaneous tissues as expected. No gas in the soft tissues. Extensive atrophy of the muscles of the foot. The extensor tendons are not well seen. There is surrounded by hemorrhage. Joint: Dislocation of the midfoot IMPRESSION: 1. Dislocation of the midfoot. 2. Fractures of the medial, middle and lateral cuneiforms. 3. Fracture of the proximal aspect of the 2nd metatarsal. 4. Small osseous fragments at the dorsal aspect of the 4th and 5th metatarsals. Interpreted by: Sonia Farrell MD Signed by: Sonia Farrell MD 07/13/24 Final result Normal [facility] CT Foot - left WO contraston 07-13-2024 1. Dislocation of the midfoot. 2. Fractures of the medial, middle and lateral cuneiforms. 3. Fracture of the proximal aspect of the 2nd metatarsal. 4. Small osseous fragments at the dorsal aspect of the 4th and 5th metatarsals. [facility] RIS CONSOLIDATED EXAMINATION: CT OF THE LEFT FOOT WITHOUT CONTRAST 07/13/2024 3:08 pm TECHNIQUE: CT of the left foot was performed without the administration of intravenous contrast. Multiplanar reformatted images are provided for review. Automated exposure control, iterative reconstruction, and/or weight based adjustment of the mA/kV was utilized to reduce the radiation dose to as low as reasonably achievable. COMPARISON: Radiographs HISTORY ORDERING SYSTEM PROVIDED HISTORY: Left foot pain/swelling TECHNOLOGIST PROVIDED HISTORY: Left foot pain/swelling Decision Support Exception - unselect if not a suspected or confirmed emergency medical condition->Emergenc y Medical Condition (MA) Is the patient ?->No FINDINGS: Bones: Severely comminuted fracture of the medial cuneiform. There are multiple small osseous fragments medial and lateral to the fracture components. Negative for dislocation. Fracture at the proximal aspect of the 2nd metatarsal. This is from the medial aspect. There is also small osseous fragments at the lateral aspect of the 2nd metatarsal between the 2nd and 3rd metatarsals as well as between the 2nd metatarsal and the middle cuneiform. The 2nd metatarsal is dislocated dorsally with respect to the medial cuneiform as well as laterally. Small osseous fragments at the dorsal aspect of the 4th and 5th metatarsals. These are very subtle. Fracture at the middle cuneiform. It is fragmented at the plantar surface. Tiny bone fragment between the middle and medial cuneiforms. Fracture of the plantar aspect of the lateral cuneiform. The cuboid appears to be intact. Talus is intact. Navicular is intact. Dislocation of the midfoot which was noted on the radiograph. There is lateral displacement of the 2nd metatarsal with respect to the middle cuneiform. The remainder of the metatarsals are displaced laterally. The 1st tarsometatarsal joint is intact. Soft Tissue: Diffuse edema in the subcutaneous tissues as expected. No gas in the soft tissues. Extensive atrophy of the muscles of the foot. The extensor tendons are not well seen. There is surrounded by hemorrhage. Joint: Dislocation of the midfoot [facility] Sonia Farrell MD - 07/13/2024 EXAMINATION: CT OF THE LEFT FOOT WITHOUT CONTRAST 07/13/2024 3:08 pm TECHNIQUE: CT of the left foot was performed without the administration of intravenous contrast. Multiplanar reformatted images are provided for review. Automated exposure control, iterative reconstruction, and/or weight based adjustment of the mA/kV was utilized to reduce the radiation dose to as low as reasonably achievable. COMPARISON: Radiographs HISTORY ORDERING SYSTEM PROVIDED HISTORY: Left foot pain/swelling TECHNOLOGIST PROVIDED HISTORY: Left foot pain/swelling Decision Support Exception - unselect if not a suspected or confirmed emergency medical condition->Emergenc y Medical Condition (MA) Is the patient ?->No FINDINGS: Bones: Severely comminuted fracture of the medial cuneiform. There are multiple small osseous fragments medial and lateral to the fracture components. Negative for dislocation. Fracture at the proximal aspect of the 2nd metatarsal. This is from the medial aspect. There is also small osseous fragments at the lateral aspect of the 2nd metatarsal between the 2nd and 3rd metatarsals as well as between the 2nd metatarsal and the middle cuneiform. The 2nd metatarsal is dislocated dorsally with respect to the medial cuneiform as well as laterally. Small osseous fragments at the dorsal aspect of the 4th and 5th metatarsals. These are very subtle. Fracture at the middle cuneiform. It is fragmented at the plantar surface. Tiny bone fragment between the middle and medial cuneiforms. Fracture of the plantar aspect of the lateral cuneiform. The cuboid appears to be intact. Talus is intact. Navicular is intact. Dislocation of the midfoot which was noted on the radiograph. There is lateral displacement of the 2nd metatarsal with respect to the middle cuneiform. The remainder of the metatarsals are displaced laterally. The 1st tarsometatarsal joint is intact. Soft Tissue: Diffuse edema in the subcutaneous tissues as expected. No gas in the soft tissues. Extensive atrophy of the muscles of the foot. The extensor tendons are not well seen. There is surrounded by hemorrhage. Joint: Dislocation of the midfoot IMPRESSION: 1. Dislocation of the midfoot. 2. Fractures of the medial, middle and lateral cuneiforms. 3. Fracture of the proximal aspect of the 2nd metatarsal. 4. Small osseous fragments at the dorsal aspect of the 4th and 5th metatarsals. [facility] Radiology Study observation (narrative) [facility] CT Foot - left WO contrastOr dered By: Sonia Farrell on 07-13-[address] [facility] Work Phone: Glucose, Whole Bloodon 07-13 Glucose [Mass/Vol] 101 mg/dL High 74 - 100 mg/dL [facility] Interpretation and review of laboratory results Abnormal [facility] Glucose [Mass/Vol] 101 mg/dL High 74-100 [facility] XR FOOT LEFT (MIN 3 VIEWS)on 07-13-2024 XR FOOT LEFT (MIN 3 VIEWS) EXAMINATION: THREE XRAY VIEWS OF THE LEFT FOOT 07/13/2024 2:00 pm COMPARISON: None. HISTORY: ORDERING SYSTEM PROVIDED HISTORY: pain/ unknown injury TECHNOLOGIST PROVIDED HISTORY: pain/ unknown injury FINDINGS: There is widening of the space between the 1st and 2nd metatarsal base with suspected Lisfranc ligament injury. There is apparent degree of tarsometatarsal dislocation involving at least the 2nd digit and potentially the 3rd, 4th, and 5th digits. The remaining joint spaces are maintained. There is soft tissue swelling. IMPRESSION: Widening of the space between the 1st and 2nd metatarsal base that may relate to a Lisfranc ligament injury and subsequent tarsometatarsal dislocation involving at least the 2nd digit. CT of the foot may be helpful in further characterization. Soft tissue swelling. Interpreted by: Vern Olivo MD Signed by: Vern Olivo MD 07/13/24 Final result Normal [facility] XR Foot - left 3 Viewson Widening of the space between the 1st and 2nd metatarsal base that may relate to a Lisfranc ligament injury and subsequent tarsometatarsal dislocation involving at least the 2nd digit. CT of the foot may be helpful in further characterization. Soft tissue swelling. [facility] RIS CONSOLIDATED EXAMINATION: THREE XRAY VIEWS OF THE LEFT FOOT 07/13/2024 2:00 pm COMPARISON: None. HISTORY: ORDERING SYSTEM PROVIDED HISTORY: pain/ unknown injury TECHNOLOGIST PROVIDED HISTORY: pain/ unknown injury FINDINGS: There is widening of the space between the 1st and 2nd metatarsal base with suspected Lisfranc ligament injury. There is apparent degree of tarsometatarsal dislocation involving at least the 2nd digit and potentially the 3rd, 4th, and 5th digits. The remaining joint spaces are maintained. There is soft tissue swelling. [facility] CONSOLIDATED Vern Olivo MD - 07/13/2024 EXAMINATION: THREE XRAY VIEWS OF THE LEFT FOOT 07/13/2024 2:00 pm COMPARISON: None. HISTORY: ORDERING SYSTEM PROVIDED HISTORY: pain/ unknown injury TECHNOLOGIST PROVIDED HISTORY: pain/ unknown injury FINDINGS: There is widening of the space between the 1st and 2nd metatarsal base with suspected Lisfranc ligament injury. There is apparent degree of tarsometatarsal dislocation involving at least the 2nd digit and potentially the 3rd, 4th, and 5th digits. The remaining joint spaces are maintained. There is soft tissue swelling. IMPRESSION: Widening of the space between the 1st and 2nd metatarsal base that may relate to a Lisfranc ligament injury and subsequent tarsometatarsal dislocation involving at least the 2nd digit. CT of the foot may be helpful in further characterization. Soft tissue swelling. [facility] Radiology Study observation (narrative) Keagan Anaya [facility] XR Foot - left 3 ViewsOrdere d By: Vern Olivo on 07-13-[address] [facility] Work Phone: CT SINUS WO CONTRASTon 07-03 CT SINUS [...] symmetric. Mild leftward deviation nasal septum. Poorly pneumatized/hypopla stic right frontal sinus. The mastoid air cells are well aerated. SOFT TISSUES: Visualized soft tissues demonstrate no acute abnormality. The visualized portion of the intracranial contents demonstrate no gross acute abnormality. IMPRESSION: No evidence of acute sinusitis. Interpreted by: Efra Sullivan MD Signed by: Efra Sullivan MD 07/03/24 Final result Normal [facility] CT Sinuses WO contraston No evidence of acute sinusitis. [facility] RIS CONSOLIDATED EXAMINATION: CT OF THE SINUS WITHOUT [...] symmetric. Mild leftward deviation nasal septum. Poorly pneumatized/hypopla stic right frontal sinus. The mastoid air cells are well aerated. SOFT TISSUES: Visualized soft tissues demonstrate no acute abnormality. The visualized portion of the intracranial contents demonstrate no gross acute abnormality. [facility] Efra Medrano MD - 07/03/2024 EXAMINATION: CT OF THE [...] symmetric. Mild leftward deviation nasal septum. Poorly pneumatized/hypopla stic right frontal sinus. The mastoid air cells are well aerated. SOFT TISSUES: Visualized soft tissues demonstrate no acute abnormality. The visualized portion of the intracranial contents demonstrate no gross acute abnormality. IMPRESSION: No evidence of acute sinusitis. [facility] CT Sinuses WO contrastOrdere d By: Efra Sullivan on 07-03-[address] [facility] Work Phone: Basic Metabolic Panelon 10-0 Anion gap [Moles/Vol] 13 mmol/L 9 - 16 mmol/L [facility] Calcium [Mass/Vol] 9.7 mg/dL 8.6 - 10. 4 mg/dL [facility] Chloride [Moles/Vol] 101 mmol/L 98 - 10 7 mmol/L [facility] CO2 [Moles/Vol] 23 mmol/L 20 - 31 mmol/L [facility] Creatinine [Mass/Vol] 1.4 mg/dL High 0.50 - 0.90 mg/dL [facility] Est, Glom Filt Rate 48 Low - PINF [facility] Comment on above: These results are not [...] 315 mg/dL High 74 - 99 mg/dL [facility] Interpretation and review of laboratory results Abnormal [facility] Potassium [Moles/Vol] 5.6 mmol/L High 3.7 - 5.3 mmol/L [facility] Sodium [Moles/Vol] 137 mmol/L 136 - 145 mmol/L [facility] Urea nitrogen [Mass/Vol] 29 mg/dL High 6 - 20 mg/dL [facility] Urea nitrogen/Creatinine [Mass ratio] 21 mg/mg High 9 - 20 [facility] Basic Metabolic Profon 07-02 Anion gap [Moles/Vol] 13 mmol/L Normal 9-16 [facility] Comment on above: Performed By: #### B MP #### [facility] [address] [place] [address] Livestock Rancher: Phillip Camarena MD BUN/CRE Ratio 21 High 9-[address] [facility] Comment on above: Performed By: #### B MP #### [facility] [address] [place] [address] Livestock Rancher: Phillip Camarena MD Calcium [Mass/Vol] 9.7 mg/dL Normal 8.6-10.4 [facility] Comment on above: Performed By: #### B MP #### [facility] [address] [place], [place] [id number] Livestock Rancher: Phillip Camarena MD Chloride [Moles/Vol] 101 mmol/L Normal 98-107 [facility] Comment on above: Performed By: #### B MP #### [facility] [address] [place] [address] Livestock Rancher: Phillip Camarena MD CO2 [Moles/Vol] 23 mmol/L Normal 20-31 [facility] Comment on above: Performed By: #### B MP #### [facility] [address] [place], [place] [id number] Livestock Rancher: Phillip Camarena MD Creatinine [Mass/Vol] 1.4 mg/dL High 0.50-0.90 [facility] Comment on above: Performed By: #### B MP #### [facility] [address] [place] [address] Livestock Rancher: Phillip Camarena MD GFR/1.73 sq M.predicted among non-blacks MDRD (S/P/Bld) [Vol rate/Area] 48 mL/min/{1.73_m2} Low >60 [facility] Comment on above: Result Comment: These [...] secretion. Performed By: #### B MP #### [facility] [address] [place] [address] Livestock Rancher: Phillip Camarena MD Glucose [Mass/Vol] 315 mg/dL High 74-99 [facility] Comment on above: Performed By: #### B MP #### [facility] [address] [place] [address] Livestock Rancher: Phillip Camarena MD Potassium [Moles/Vol] 5.6 mmol/L High 3.7-5.3 [facility] Comment on above: Performed By: #### B MP #### [facility] [address] [place] [address] Livestock Rancher: Phillip Camarena MD Sodium [Moles/Vol] 137 mmol/L Normal 136-145 [facility] Comment on above: Performed By: #### B MP #### [place] [address] [place] [address] Livestock Rancher: Phillip Camarena MD Urea nitrogen [Mass/Vol] 29 mg/dL High 6-20 [facility] Comment on above: Performed By: #### B MP #### [facility] [address] [place] [address] [place] [address] Livestock Rancher: Phillip Camarena MD CT Sinuses WO contraston Radiology Study observation (narrative) [facility] Diabetic Office/Clinic Noteo n 06-12-2024 Diabetic Office/Clinic Note [facility] [address] [place], [place], [phone] Risa Warner 1975 [phone] CGM DEVICE: FreeStyle Kena 2 Start Date [...] medication adjustments as appropriate. Electronically signed by Rolan Dunn 06/12/24 14:10 EDT Normal [facility] Hemoglobin A1Con 06-09-2024 Glucose [Mass/Vol] 203 mg/dL Normal [facility] Comment on above: Result Comment: The ADA and AACC recommend providing the estimated average glucose result to permit better patient understanding of their HBA1c result. Performed By: #### G LYHGB #### [id number] [place], [place] [address] Livestock Rancher: Melvin Santoyo MD #### TSHX #### [facility] [address] [place] [address] Livestock Rancher: Phillip Camarena MD HbA1c (Bld) [Mass fraction] 8.7 % High 4.0-6.0 [facility] Comment on above: Performed By: #### G LYHGB #### [id number] [place], [place] [id number] Livestock Rancher: Melvin Santoyo MD #### TSHX #### [facility] [address] [place] [address] Livestock Rancher: Phillip Camarena MD TSH w/reflex to FT4on 2023 Thyroid Stim. Horm. 0.62 uIU/mL Normal 0.27-4.20 [facility] Comment on above: Performed By: #### G LYHGB #### [id number] [place] [address] Livestock Rancher: Melvin Santoyo MD #### TSHX #### [facility] [address] [place] [address] Livestock Rancher: Phillip Camarena MD TSH with Reflexon 06-08-2024 TSH Qn 0.62 m[IU]/L [facility] RNA Polymerase 3 IgGon 05-13 RNA Polymerase 3 IgG 4 Units Normal 0-19 [facility] Comment on above: Result Comment: (NOT E) [...] antibodies associated with SSc, including centromere, Scl-70, U3-EDUCATIONAL ADVISER, PM/Scl, or Th/To. Performed By: [employer] [address] [place] [id number] Workforce Planning Analyst: Jesus Angeles MD, PhD CLIA Number: [id number] Performed By: #### G LYHGB #### [employer] [facility] [address] [place] [address] Livestock Rancher: Melvin Santoyo MD #### TSHX #### [facility] [address] [place] [address] Livestock Rancher: Phillip Camarena MD Anti-Centromereon 05-10-2024 Anti-Centromere <0.4 Normal <7.0 [facility] Comment on above: Result Comment: Reference Range: <7.0 Negative 7.0-10.0 Equivocal >10.0 Positive Performed By: #### G LYHGB #### [id number] [place] [address] Livestock Rancher: Melvin Santoyo MD #### TSHX #### [address] [place] [address] Livestock Rancher: Phillip Camarena MD Anti-Sclerodermaon Anti-Scleroderma <0.6 Normal <7.0 [facility] Comment on above: Result Comment: Reference Range: <7.0 Negative 7.0-10.0 Equivocal >10.0 Positive Performed By: #### G LYHGB #### [address] [address] Livestock Rancher: Melvin Santoyo MD #### TSHX #### [address] [place] [address] Livestock Rancher: Phillip Camarena MD Anti-[id number] 9 Anti-U1RNP 1.0 U/mL Normal <5.0 [facility] Comment on above: Result Comment: Reference Range: <5.0 Negative 5.0-10.0 Equivocal >10.0 Positive Performed By: #### Deandra LYHGB #### [address] [address] Livestock Rancher: Melvin Santoyo MD #### TSHX #### [address] [place] [address] Livestock Rancher: Phillip Camarena MD Thyroid Antibodieson 024 Anti-Thy Peroxidase <4.0 Normal 0.0-25.0 [facility] Comment on above: Result Comment: Reference Range: <25.0 Negative 25.0-35.0 Equivocal >35.0 Positive When results are Equivocal, it is recommended to retest after 8-12 weeks. Performed By: #### G LYHGB #### [address] [address] Livestock Rancher: Melvin Santoyo MD #### TSHX #### [facility] [address] [place] [address] Livestock Rancher: Phillip Camarena MD Thyroglobulin Ab Qn [IU]/mL Normal 0.0-40.0 [facility] Comment on above: Result Comment: Reference Range: <40.0 Negative 40.0-60.0 Equivocal >60.0 Positive When results are Equivocal, it is recommended to retest after 8-12 weeks. Performed By: #### G LYHGB #### [id number] [place], [place] [id number] Livestock Rancher: Melvin Santoyo MD #### TSHX #### [facility] [address] [place] [address] [place] [address] Livestock Rancher: Phillip Camarena MD Creatine Kinaseon 05-08-2024 CK [Catalytic activity/Vol] 453 U/L High 26-192 [facility] Comment on above: Performed By: #### G LYHGB #### [id number] [place] [address] Livestock Rancher: Melvin Santoyo MD #### TSHX #### [facility] [address] [place] [address] [place] [address] Livestock Rancher: Phillip Camarena MD Liver Profileon 04-12-2024 ALT [Catalytic activity/Vol] 20 U/L Normal 5-33 [facility] Comment on above: Performed By: #### L IVP #### [facility] [address] [place] [address] [address] [place], [place] [id number] Livestock Rancher: Phillip Camarena MD AST [Catalytic activity/Vol] 17 U/L Normal <32 [facility] Comment on above: Performed By: #### L IVP #### [facility] [address] [place] [address] Livestock Rancher: Phillip Camarena MD Albumin [Mass/Vol] 4.0 g/dL Normal 3.5-5.2 [facility] Comment on above: Performed By: #### L IVP #### [facility] [address] [place], [place] [id number] Livestock Rancher: Phillip Camarena MD Albumin/Glob Ratio 1.5 Normal 1.0-2.5 [facility] Comment on above: Performed By: #### L IVP #### [facility] [address] [place], [place] [id number] Livestock Rancher: Phillip Camarena MD Alkaline Phos 51 U/L Normal 35-[address] [facility] Comment on above: Performed By: #### L IVP #### [facility] [address] [place], [place] [id number] Livestock Rancher: Phillip Camarena MD Bilirubin [Mass/Vol] 0.2 mg/dL Low 0.3-1.2 [facility] Comment on above: Performed By: #### L IVP #### [facility] [address] [place] [address] [place] [address] Livestock Rancher: Phillip Camarena MD Bilirubin, Indirect Can not be calculated Normal 0.0-1.0 [facility] Comment on above: Performed By: #### L IVP #### [facility] [address] [place] [address] [address] [place], [place] [id number] Livestock Rancher: Phillip Camarena MD Bilirubin.indirect [Mass/Vol] mg/dL Normal <0.3 [facility] Comment on above: Performed By: #### L IVP #### [facility] [address] [place], [place] [id number] Livestock Rancher: Phillip Camarena MD Protein [Mass/Vol] 6.7 g/dL Normal 6.4-8.3 [facility] Comment on above: Performed By: #### L IVP #### [facility] [address] [place], [place] [id number] Livestock Rancher: Phillip Camarena MD Hemoglobin A1Con 03-24-2024 Glucose [Mass/Vol] 180 mg/dL Normal [facility] Comment on above: Result Comment: The ADA and AACC recommend providing the estimated average glucose result to permit better patient understanding of their HBA1c result. Performed By: #### G LYHGB #### [address] [id number] Livestock Rancher: Melvin Santoyo MD #### TSHX #### [facility] [address] [place] [address] Livestock Rancher: Phillip Camarena MD HbA1c (Bld) [Mass fraction] 7.9 % High 4.0-6.0 [facility] Comment on above: Performed By: #### G LYHGB #### [address] [id number] Livestock Rancher: Melvin Santoyo MD #### TSHX #### [facility] [address] [place], [place] [phone] Livestock Rancher: Phillip Camarena MD LDL Chol, Directon 4 LDL Chol, Direct 48 mg/dL Normal [facility] Comment on above: Performed By: #### L IPR, LDLDIR #### [address] [id number] Livestock Rancher: Melvin Santoyo MD Lipid Profileon 03-24-2024 Cholesterol [Mass/Vol] 267 mg/dL High 0-[address] [facility] Comment on above: Result Comment: Cholesterol Guidelines: <200 Desirable 200-240 Borderline >240 Undesirable Performed By: #### L IPR, LDLDIR #### [address] [id number] Livestock Rancher: Melvin Santoyo MD Cholesterol in HDL [Mass/Vol] 16 mg/dL Low >40 [facility] Comment on above: Result Comment: HDL Guidelines: <40 Undesirable 40-59 Borderline >59 Desirable Performed By: #### L IPR, LDLDIR #### [facility] [employer] [facility] [place] [address] Livestock Rancher: Melvin Santoyo MD Cholesterol,LDL Can not be calculated Normal 0-100 [facility] Comment on above: Result Comment: LDL Guidelines: <100 Desirable 100-129 Near to/above Desirable 130-159 Borderline >159 Undesirable Direct (measured) LDL and calculated LDL are not interchangeable tests. Performed By: #### L IPR, LDLDIR #### [facility] [employer] [address] [place] [address] Livestock Rancher: Melvin Santoyo MD Cholesterol,VLDL Can not be calculated Normal [facility] Comment on above: Performed By: #### L IPR, LDLDIR #### [facility] [employer] [address] [place] [address] Livestock Rancher: Melvin Santoyo MD Cholesterol.total/Poppy sterol in HDL [Mass ratio] 17.0 {ratio} Normal [facility] Comment on above: Performed By: #### L IPR, LDLDIR #### [facility] [employer] [address] [place] [address] Livestock Rancher: Melvin Santoyo MD Triglyceride [Mass/Vol] 2042 mg/dL High <150 [facility] Comment on above: Result Comment: Triglyceride Guidelines: <150 Desirable 150-199 Borderline 200-499 High >499 Very high Based on AHA Guidelines for fasting triglyceride, June 2012. Performed By: #### L IPR, LDLDIR #### [facility] [employer] [address] [place] [address] Livestock Rancher: Melvin Santoyo MD Microalb.,Random Uron 2023 Creatinine [Mass/Vol] 78.9 mg/dL Normal 28.0-217.0 [facility] Comment on above: Performed By: #### U RNMAB #### [facility] [employer] [address] [place] [address] Livestock Rancher: Melvin Santoyo MD Microalb/Creat Ratio Can not be calculated Normal 0.0-25.0 [facility] Comment on above: Performed By: #### U RNMAB #### [address] [address] Livestock Rancher: Melvin Santoyo MD Microalbumin conc. <12 Normal 0-20 [facility] Comment on above: Performed By: #### U RNMAB #### [address] [address] Livestock Rancher: Melvin Santoyo MD Farrukh 03-23-2024 ALT [Catalytic activity/Vol] 25 U/L Normal 5-33 [facility] Comment on above: Performed By: #### G LYHGB #### [address] [address] Livestock Rancher: Melvin Santooy MD #### TSHX #### [place] [address] [place] [address] Livestock Rancher: Phillip Camarena MD Fredy 1 AST [Catalytic activity/Vol] 30 U/L Normal <32 [facility] Comment on above: Performed By: #### B MP, AST, ALT #### [place] [address] [place] [address] Livestock Rancher: Phillip Camarena MD #### GLYHGB #### [address] [address] Livestock Rancher: Melvin Santoyo MD Basic Metabolic Profon 03-230 Anion gap [Moles/Vol] 14 mmol/L Normal 9-17 [facility] Comment on above: Performed By: #### G LYHGB #### [address] [address] Livestock Rancher: Melvin Santoyo MD #### TSHX #### [facility] [address] [place] [address] Livestock Rancher: Phillip Camarena MD BUN/CRE Ratio 33 High 9-[address] [facility] Comment on above: Performed By: #### G LYHGB #### [facility] [address] [place] [address] Livestock Rancher: Melvin Santoyo MD #### TSHX #### [facility] [address] [place], [place] [phone] Livestock Rancher: Phillip Camarena MD Calcium [Mass/Vol] 9.3 mg/dL Normal 8.6-10.4 [facility] Comment on above: Performed By: #### G LYHGB #### [address] [place] [address] Livestock Rancher: Melvin Santoyo MD #### TSHX #### [facility] [address] [place] [id number] Livestock Rancher: Phillip Camarena MD Chloride [Moles/Vol] 98 mmol/L Normal 98-107 [facility] Comment on above: Performed By: #### G LYHGB #### [facility] [address] [place] [address] Livestock Rancher: Melvin Santoyo MD #### TSHX #### [facility] [address] [place], [place] [address] Livestock Rancher: Phillip Camarena MD CO2 [Moles/Vol] 23 mmol/L Normal 20-31 [facility] Comment on above: Performed By: #### G LYHGB #### [facility] [address] [place] [address] Livestock Rancher: Melvin Santoyo MD #### TSHX #### [facility] [address] [place], [place] [phone] Livestock Rancher: Phillip Camarena MD Creatinine [Mass/Vol] 1.1 mg/dL High 0.5-0.9 [facility] Comment on above: Performed By: #### G LYHGB #### [address] [address] Livestock Rancher: Melvin Santoyo MD #### TSHX #### [facility] [address] [place], [place] [phone] Livestock Rancher: Phillip Camarena MD GFR/1.73 sq M.predicted among non-blacks MDRD (S/P/Bld) [Vol rate/Area] 61 mL/min/{1.73_m2} Normal >60 [facility] Comment on above: Result Comment: These [...] secretion. Performed By: #### G LYHGB #### [address] [address] Livestock Rancher: eMlvin Santoyo MD #### TSHX #### [address] [place], [place] [address] Livestock Rancher: Phillip Camarena MD Glucose [Mass/Vol] 221 mg/dL High 70-99 [facility] Comment on above: Performed By: #### G LYHGB #### [address] [address] Livestock Rancher: Melvin Santoyo MD #### TSHX #### [address] [place] [address] Livestock Rancher: Phillip Camarena MD Potassium [Moles/Vol] 5.1 mmol/L Normal 3.7-5.3 [facility] Comment on above: Performed By: #### G LYHGB #### [address] [address] Livestock Rancher: Melvin Santoyo MD #### TSHX #### [facility] [address] [place] [phone] Livestock Rancher: Phillip Camarena MD Sodium [Moles/Vol] 135 mmol/L Normal 135-144 [facility] Comment on above: Performed By: #### G LYHGB #### [address] [address] Livestock Rancher: Melvin Santoyo MD #### TSHX #### [facility] [address] [place] [address] Livestock Rancher: Phillip Camarena MD Urea nitrogen [Mass/Vol] 36 mg/dL High 6-20 [facility] Comment on above: Performed By: #### G LYHGB #### [address] [address] Livestock Rancher: Melvin Santoyo MD #### TSHX #### [facility] [address] [place] [address] Livestock Rancher: Phillip Camarena MD Hemoglobin A1Con 03-06-2024 Glucose [Mass/Vol] 171 mg/dL Normal [facility] Comment on above: Result Comment: The ADA and AACC recommend providing the estimated average glucose result to permit better patient understanding of their HBA1c result. Performed By: #### G LYHGB #### [address] [address] Livestock Rancher: Melvin Santoyo MD #### TSHX #### [facility] [address] [place] [address] Livestock Rancher: Phillip Camarena MD HbA1c (Bld) [Mass fraction] 7.6 % High 4.0-6.0 [facility] Comment on above: Performed By: #### G LYHGB #### [address] [address] Livestock Rancher: Melvin Santoyo MD #### TSHX #### [facility] [address] [place] [address] Livestock Rancher: Phillip Camarena MD XR Chest 2 Viewson No radiographic evidence of acute cardiopulmonary disease. PN RIS CONSOLIDATED EXAMINATION: TWO XRAY VIEWS OF THE CHEST 12/07/2023 12:58 pm COMPARISON: None. HISTORY: ORDERING SYSTEM PROVIDED HISTORY: Lower leg edema FINDINGS: The lungs appear clear. The heart and mediastinal structures are unremarkable. Bony thorax appears normal. Visualized upper abdomen is unremarkable. [facility] RIS CONSOLIDATED Jesus Otero MD - 12/07/2023 EXAMINATION: TWO XRAY VIEWS OF THE CHEST 12/07/2023 12:58 pm COMPARISON: None. HISTORY: ORDERING SYSTEM PROVIDED HISTORY: Lower leg edema FINDINGS: The lungs appear clear. The heart and mediastinal structures are unremarkable. Bony thorax appears normal. Visualized upper abdomen is unremarkable. IMPRESSION: No radiographic evidence of acute cardiopulmonary disease. [facility] Radiology Study observation (narrative) [facility] XR Chest 2 ViewsOrdered By: Jesus Otero on 12-07-2023 [facility] Work Phone: CBC with Auto Differentialon 06-16-2023 Basophils (Bld) [#/Vol] 0.00 10*3/uL [facility] Basophils/100 WBC (Bld) 0 % 0 - 2 % B ON [facility] Eosinophils (Bld) [#/Vol] 0.00 10*3/uL [facility] Eosinophils/100 WBC (Bld) 0 % Low 1 - 4 % [facility] Erythrocyte distribution width (RBC) [Ratio] 13.1 % 11.8 - 14.4 % [facility] Hematocrit (Bld) [Volume fraction] 44.3 % 36.3 - 47.1 % [facility] Hemoglobin (Bld) [Mass/Vol] 14.6 g/dL 11.9 - 15.1 g/dL [facility] Immature granulocytes (Bld) [#/Vol] 0.25 10*3/uL [facility] Immature granulocytes/100 WBC (Bld) 2 % High 0 [facility] Interpretation and review of laboratory results Abnormal [facility] Lymphocytes/100 WBC (Bld) 20 % Low 24 - 43 % [facility] Lymphocytes/100 WBC (Bld) 2.46 % [facility] MCH (RBC) [Entitic mass] 31.3 pg 25.2 - 33.5 pg [facility] MCHC (RBC) [Mass/Vol] 33.0 g/dL 28.4 - 34.8 g/dL [facility] MCV (RBC) [Entitic vol] 95.1 fL 82.6 - 102.9 fL [facility] Monocytes/100 WBC (Bld) 6 % 3 - 12 % B ON [facility] Monocytes/100 WBC (Bld) 0.74 % B ON [facility] Morphology Alejo (Bld) [Interp] ANISOCYTOSIS PRESENT [facility] Neutrophils/100 WBC (Bld) 72 % High 36 - 65 % [facility] Nucleated RBC/100 WBC (Bld) [Ratio] 0.0 % 0.0 per 100 WBC [facility] Platelet mean volume (Bld) [Entitic vol] 8.8 fL 8.1 - 13.5 fL [facility] Platelets (Bld) [#/Vol] 438 10*3/uL [facility] RBC (Bld) [#/Vol] 4.66 10*6/uL 3.95 - 5.1 1 m/uL [facility] Segmented neutrophils/100 WBC (Bld) 8.85 % High [facility] WBC other (Bld) [#/Vol] 12.3 High B ON [facility] CT Head WO Contraston 2022 No acute intracranial abnormality. [facility] RIS CONSOLIDATED EXAMINATION: CT OF [...] not a suspected or confirmed emergency medical condition->Emergenc y Medical Condition (MA) Is the patient ?->No [...] is intact. Extracranial soft tissues are unremarkable. [facility] Brandon Begr MD - 06/16/2023 EXAMINATION: CT OF THE HEAD [...] not a suspected or confirmed emergency medical condition->Emergenc y Medical Condition (MA) Is the patient ?->No [...] are unremarkable. IMPRESSION: No acute intracranial abnormality. [facility] Radiology Study observation (narrative) [facility] CT Head WO ContrastOrdered B y: Brandon Morfin on 06-16-2023 [facility] Work Phone: Comprehensive Metabolic Pane yamilet 06-16-2023 Albumin [Mass/Vol] 4.5 g/dL 3.5 - 5.2 g/dL [facility] Albumin/Globulin [Mass ratio] 1.4 {ratio} 1.0 - 2.5 [facility] ALP [Catalytic activity/Vol] 59 U/L 35 - 104 U/L [facility] ALT [Catalytic activity/Vol] 30 U/L 5 - 33 U/L [facility] Anion gap [Moles/Vol] 10 mmol/L 9 - 17 mmol/L [facility] AST [Catalytic activity/Vol] 33 U/L High NINF - 32 U/L [facility] Bilirubin [Mass/Vol] 0.3 mg/dL 0.3 - 1 .2 mg/dL [facility] Calcium [Mass/Vol] 9.9 mg/dL 8.6 - 10. 4 mg/dL [facility] Chloride [Moles/Vol] 99 mmol/L 98 - 10 7 mmol/L [facility] CO2 [Moles/Vol] 26 mmol/L 20 - 31 mmol/L [facility] Creatinine [Mass/Vol] 1.0 mg/dL High 0.5 - 0.9 mg/dL [facility] GFR/1.73 sq M.predicted MDRD (S/P/Bld) [Vol rate/Area] [facility] Comment on above: These results are not [...] 109 mg/dL High 70 - 99 mg/dL [facility] Interpretation and review of laboratory results Abnormal [facility] Potassium [Moles/Vol] 5.0 mmol/L 3.7 - 5.3 mmol/L [facility] Protein [Mass/Vol] 7.8 g/dL 6.4 - 8.3 g/dL [facility] Sodium [Moles/Vol] 135 mmol/L 135 - 144 mmol/L [facility] Urea nitrogen [Mass/Vol] 29 mg/dL High 6 - 20 mg/dL [facility] Urea nitrogen/Creatinine [Mass ratio] 29 mg/mg High 9 - 20 [facility] Troponinon 06-16-2023 Interpretation and review of laboratory results Abnormal [facility] Troponin I.cardiac High sensitivity method [Mass/Vol] 15 ng/L High 0 - 14 ng/L [facility] Comment on above: High Sensitivity Tro ponin values cannot be compared with other Troponin methodologies. [facility] XR CHEST PORTABLEon 06-16-20 23 Mild prominence of pulmonary vasculature and interstitium related to technique versus developing pulmonary edema. [facility] CONSOLIDATED EXAMINATION: ONE XRAY VIEW OF THE CHEST 06/16/2023 6:31 pm COMPARISON: June 10, 2023 and additional prior exams. HISTORY: ORDERING SYSTEM PROVIDED HISTORY: Syncope TECHNOLOGIST PROVIDED HISTORY: Syncope FINDINGS: Mild increased prominence of the pulmonary vasculature and interstitium. No pleural effusion or pneumothorax identified. Cardiac and mediastinal silhouettes are within normal limits. No acute osseous abnormality identified. [facility] CONSOLIDATED Jason Long MD - 06/16/2023 EXAMINATION: [...] related to technique versus developing pulmonary edema. [facility] Radiology Study observation (narrative) [facility] XR CHEST PORTABLEOrdered By: Jason Long on 06-16-2023 [facility] Work Phone: Basic Metabolic Panel w/ Ref kartik to MGon 06-14-2023 Anion gap [Moles/Vol] 11 mmol/L 9 - 17 mmol/L [facility] Calcium [Mass/Vol] 9.9 mg/dL 8.6 - 10. 4 mg/dL [facility] Chloride [Moles/Vol] 98 mmol/L 98 - 10 7 mmol/L [facility] CO2 [Moles/Vol] 26 mmol/L 20 - 31 mmol/L [facility] Creatinine [Mass/Vol] 0.9 mg/dL 0.5 - 0.9 mg/dL [facility] GFR/1.73 sq M.predicted MDRD (S/P/Bld) [Vol rate/Area] - PINF [facility] Comment on above: These results are [...] 186 mg/dL High 70 - 99 mg/dL [facility] Interpretation and review of laboratory results Abnormal [facility] Potassium [Moles/Vol] 4.4 mmol/L 3.7 - 5.3 mmol/L [facility] Sodium [Moles/Vol] 135 mmol/L 135 - 144 mmol/L [facility] Urea nitrogen [Mass/Vol] 30 mg/dL High 6 - 20 mg/dL [facility] Urea nitrogen/Creatinine [Mass ratio] 33 mg/mg High 9 - 20 [facility] CBC auto differentialon 05-27 Basophils (Bld) [#/Vol] 0.03 10*3/uL [facility] Basophils/100 WBC (Bld) 0 % 0 - 2 % B [facility] Eosinophils (Bld) [#/Vol] [facility] Eosinophils/100 WBC (Bld) 0 % Low 1 - 4 % [facility] Erythrocyte distribution width (RBC) [Ratio] 13.4 % 11.8 - 14.4 % [facility] Hematocrit (Bld) [Volume fraction] 35.7 % Low 36.3 - 47.1 % [facility] Hemoglobin (Bld) [Mass/Vol] 11.5 g/dL Low 11.9 - 15.1 g/dL [facility] Immature granulocytes (Bld) [#/Vol] 0.32 10*3/uL High [facility] Immature granulocytes/100 WBC (Bld) 3 % High 0 [facility] Interpretation and review of laboratory results Abnormal [facility] Lymphocytes/100 WBC (Bld) 16 % Low 24 - 43 % [facility] Lymphocytes/100 WBC (Bld) 1.82 % [facility] MCH (RBC) [Entitic mass] 31.1 pg 25.2 - 33.5 pg [facility] MCHC (RBC) [Mass/Vol] 32.2 g/dL 28.4 - 34.8 g/dL [facility] MCV (RBC) [Entitic vol] 96.5 fL 82.6 - 102.9 fL [facility] Monocytes/100 WBC (Bld) 5 % 3 - 12 % B [facility] Monocytes/100 WBC (Bld) 0.52 % B ON [facility] Neutrophils/100 WBC (Bld) 77 % High 36 - 65 % [facility] Nucleated RBC/100 WBC (Bld) [Ratio] 0.0 % 0.0 per 100 WBC [facility] Platelet mean volume (Bld) [Entitic vol] 9.2 fL 8.1 - 13.5 fL [facility] Platelets (Bld) [#/Vol] 355 10*3/uL [facility] RBC (Bld) [#/Vol] 3.70 10*6/uL Low 3.95 - 5.1 1 m/uL [facility] Segmented neutrophils/100 WBC (Bld) 8.74 % High [facility] WBC other (Bld) [#/Vol] 11.4 High B [facility] Glucose, Whole Bloodon 06-14 Glucose [Mass/Vol] 228 mg/dL High 74 - 100 mg/dL [facility] Interpretation and review of laboratory results Abnormal [facility] Glucose [Mass/Vol] 167 mg/dL High 74 - 100 mg/dL [facility] Interpretation and review of laboratory results Abnormal [facility] Basic Metabolic Panel w/ Ref kartik to MGon 06-13-2023 Anion gap [Moles/Vol] 12 mmol/L 9 - 17 mmol/L [facility] Calcium [Mass/Vol] 9.7 mg/dL 8.6 - 10. 4 mg/dL [facility] Chloride [Moles/Vol] 103 mmol/L 98 - 10 7 mmol/L [facility] CO2 [Moles/Vol] 23 mmol/L 20 - 31 mmol/L [facility] Creatinine [Mass/Vol] 0.7 mg/dL 0.5 - 0.9 mg/dL [facility] GFR/1.73 sq M.predicted MDRD (S/P/Bld) [Vol rate/Area] - PINF [facility] Comment on above: These results are [...] 199 mg/dL High 70 - 99 mg/dL [facility] Interpretation and review of laboratory results Abnormal [facility] Potassium [Moles/Vol] 4.3 mmol/L 3.7 - 5.3 mmol/L [facility] Sodium [Moles/Vol] 138 mmol/L 135 - 144 mmol/L [facility] Urea nitrogen [Mass/Vol] 28 mg/dL High 6 - 20 mg/dL [facility] Urea nitrogen/Creatinine [Mass ratio] 40 mg/mg High 9 - 20 [facility] CBC auto differentialon 05-27 Basophils (Bld) [#/Vol] B ON [facility] Basophils/100 WBC (Bld) 0 % 0 - 2 % B ON [facility] Eosinophils (Bld) [#/Vol] [facility] Eosinophils/100 WBC (Bld) 0 % Low 1 - 4 % [facility] Erythrocyte distribution width (RBC) [Ratio] 13.6 % 11.8 - 14.4 % [facility] Hematocrit (Bld) [Volume fraction] 38.0 % 36.3 - 47.1 % [facility] Hemoglobin (Bld) [Mass/Vol] 12.2 g/dL 11.9 - 15.1 g/dL [facility] Immature granulocytes (Bld) [#/Vol] 0.24 10*3/uL [facility] Immature granulocytes/100 WBC (Bld) 2 % High 0 [facility] Interpretation and review of laboratory results Abnormal [facility] Lymphocytes/100 WBC (Bld) 14 % Low 24 - 43 % [facility] Lymphocytes/100 WBC (Bld) 1.87 % [facility] MCH (RBC) [Entitic mass] 31.2 pg 25.2 - 33.5 pg [facility] MCHC (RBC) [Mass/Vol] 32.1 g/dL 28.4 - 34.8 g/dL [facility] MCV (RBC) [Entitic vol] 97.2 fL 82.6 - 102.9 fL [facility] Monocytes/100 WBC (Bld) 5 % 3 - 12 % B [facility] Monocytes/100 WBC (Bld) 0.60 % [facility] Neutrophils/100 WBC (Bld) 80 % High 36 - 65 % [facility] Nucleated RBC/100 WBC (Bld) [Ratio] 0.0 % 0.0 per 100 WBC [facility] Platelet mean volume (Bld) [Entitic vol] 9.5 fL 8.1 - 13.5 fL [facility] Platelets (Bld) [#/Vol] 226 10*3/uL [facility] RBC (Bld) [#/Vol] 3.91 10*6/uL Low 3.95 - 5.1 1 m/uL [facility] Segmented neutrophils/100 WBC (Bld) 10.70 % High [facility] WBC other (Bld) [#/Vol] 13.4 High B [address] [facility] EKG Rhythm Stripon 3 [facility] Glucose, Whole Bloodon 06-13 Glucose [Mass/Vol] 207 mg/dL High 74 - 100 mg/dL [facility] Interpretation and review of laboratory results Abnormal [facility] Glucose [Mass/Vol] 217 mg/dL High 74 - 100 mg/dL [facility] Interpretation and review of laboratory results Abnormal [facility] Glucose [Mass/Vol] 197 mg/dL High 74 - 100 mg/dL [facility] Interpretation and review of laboratory results Abnormal [facility] Glucose [Mass/Vol] 180 mg/dL High 74 - 100 mg/dL [facility] Interpretation and review of laboratory results Abnormal [facility] Basic Metabolic Panel w/ Ref kartik to MGon 06-12-2023 Anion gap [Moles/Vol] 12 mmol/L [facility] Calcium [Mass/Vol] 9.3 mg/dL 8.6 - 10. 4 mg/dL [facility] Chloride [Moles/Vol] 99 mmol/L 98 - 10 7 mmol/L [facility] CO2 [Moles/Vol] 24 mmol/L 20 - 31 mmol/L [facility] Creatinine [Mass/Vol] 0.8 mg/dL 0.5 - 0.9 mg/dL [facility] GFR/1.73 sq M.predicted MDRD (S/P/Bld) [Vol rate/Area] - PINF [facility] Comment on above: These results are [...] 295 mg/dL High 70 - 99 mg/dL [facility] Interpretation and review of laboratory results Abnormal [facility] Potassium [Moles/Vol] 4.7 mmol/L 3.7 - 5.3 mmol/L [facility] Sodium [Moles/Vol] 135 mmol/L 135 - 144 mmol/L [facility] Urea nitrogen [Mass/Vol] 23 mg/dL High 6 - 20 mg/dL [facility] Urea nitrogen/Creatinine [Mass ratio] 29 mg/mg High 9 - 20 [facility] CBC auto differentialon 05-27 Basophils (Bld) [#/Vol] 0.04 10*3/uL [facility] Basophils/100 WBC (Bld) 0 % 0 - 2 % B [facility] Eosinophils (Bld) [#/Vol] [facility] Eosinophils/100 WBC (Bld) 0 % Low 1 - 4 % [facility] Erythrocyte distribution width (RBC) [Ratio] 13.7 % 11.8 - 14.4 % [facility] Hematocrit (Bld) [Volume fraction] 34.5 % Low 36.3 - 47.1 % [facility] Hemoglobin (Bld) [Mass/Vol] 11.2 g/dL Low 11.9 - 15.1 g/dL [facility] Immature granulocytes (Bld) [#/Vol] 0.18 10*3/uL [facility] Immature granulocytes/100 WBC (Bld) 1 % High 0 [facility] Interpretation and review of laboratory results Abnormal [facility] Lymphocytes/100 WBC (Bld) 10 % Low 24 - 43 % [facility] Lymphocytes/100 WBC (Bld) 1.59 % [facility] MCH (RBC) [Entitic mass] 31.6 pg 25.2 - 33.5 pg [facility] MCHC (RBC) [Mass/Vol] 32.5 g/dL 28.4 - 34.8 g/dL [facility] MCV (RBC) [Entitic vol] 97.5 fL 82.6 - 102.9 fL [facility] Monocytes/100 WBC (Bld) 2 % Low 3 - 12 % B ON [facility] Monocytes/100 WBC (Bld) 0.30 % B ON [facility] Neutrophils/100 WBC (Bld) 87 % High 36 - 65 % [facility] Nucleated RBC/100 WBC (Bld) [Ratio] 0.0 % 0.0 per 100 WBC [facility] Platelet mean volume (Bld) [Entitic vol] 10.6 fL 8.1 - 13.5 fL [facility] Platelets (Bld) [#/Vol] 367 10*3/uL [facility] RBC (Bld) [#/Vol] 3.54 10*6/uL Low 3.95 - 5.1 1 m/uL [facility] Segmented neutrophils/100 WBC (Bld) 14.32 % High [facility] WBC other (Bld) [#/Vol] 16.4 High B ON [facility] EKG Rhythm Stripon 3 [facility] Glucose, Whole Bloodon 06-12 Glucose [Mass/Vol] 175 mg/dL High 74 - 100 mg/dL [facility] Interpretation and review of laboratory results Abnormal [facility] Glucose [Mass/Vol] 567 mg/dL Critically high 74 - 1 00 mg/dL [facility] Interpretation and review of laboratory results Abnormal [facility] Glucose [Mass/Vol] 199 mg/dL High 74 - 100 mg/dL [facility] Interpretation and review of laboratory results Abnormal [facility] Glucose [Mass/Vol] 249 mg/dL High 74 - 100 mg/dL [facility] Interpretation and review of laboratory results Abnormal [facility] Glucose [Mass/Vol] 283 mg/dL High 74 - 100 mg/dL [facility] Interpretation and review of laboratory results Abnormal [facility] Basic Metabolic Panel w/ Ref kartik to MGon 06-11-2023 Anion gap [Moles/Vol] 10 mmol/L 9 - 17 mmol/L [facility] Calcium [Mass/Vol] 9.1 mg/dL 8.6 - 10. 4 mg/dL [facility] Chloride [Moles/Vol] 105 mmol/L 98 - 10 7 mmol/L [facility] CO2 [Moles/Vol] 26 mmol/L 20 - 31 mmol/L [facility] Creatinine [Mass/Vol] 1.0 mg/dL High 0.5 - 0.9 mg/dL [facility] GFR/1.73 sq M.predicted MDRD (S/P/Bld) [Vol rate/Area] - PINF [facility] Comment on above: These results are [...] 153 mg/dL High 70 - 99 mg/dL [facility] Interpretation and review of laboratory results Abnormal [facility] Potassium [Moles/Vol] 4.7 mmol/L 3.7 - 5.3 mmol/L [facility] Sodium [Moles/Vol] 141 mmol/L 135 - 144 mmol/L [facility] Urea nitrogen [Mass/Vol] 13 mg/dL 6 - 20 mg/dL [facility] Urea nitrogen/Creatinine [Mass ratio] 13 mg/mg 9 - 20 [facility] Brain Natriuretic Peptideon 06-11-2023 Natriuretic peptide B (Bld) [Mass/Vol] 74 pg/mL NINF - 300 pg/mL [facility] Comment on above: An age-independent cutoff point of 300 pg/ml has a 98% negative predictive value excluding acute heart failure. [facility] CBC auto differentialon 05-27 Basophils (Bld) [#/Vol] 0.06 10*3/uL [facility] Basophils/100 WBC (Bld) 1 % 0 - 2 % B ON [facility] Eosinophils (Bld) [#/Vol] 0.34 10*3/uL [facility] Eosinophils/100 WBC (Bld) 3 % 1 - 4 % [facility] Erythrocyte distribution width (RBC) [Ratio] 14.0 % 11.8 - 14.4 % [facility] Hematocrit (Bld) [Volume fraction] 37.6 % 36.3 - 47.1 % [facility] Hemoglobin (Bld) [Mass/Vol] 12.0 g/dL 11.9 - 15.1 g/dL [facility] Immature granulocytes (Bld) [#/Vol] 0.12 10*3/uL [facility] Immature granulocytes/100 WBC (Bld) 1 % High 0 [facility] Interpretation and review of laboratory results Abnormal [facility] Lymphocytes/100 WBC (Bld) 20 % Low 24 - 43 % [facility] Lymphocytes/100 WBC (Bld) 2.45 % [facility] MCH (RBC) [Entitic mass] 31.6 pg 25.2 - 33.5 pg [facility] MCHC (RBC) [Mass/Vol] 31.9 g/dL 28.4 - 34.8 g/dL [facility] MCV (RBC) [Entitic vol] 98.9 fL 82.6 - 102.9 fL [facility] Monocytes/100 WBC (Bld) 2 % Low 3 - 12 % [facility] Monocytes/100 WBC (Bld) 0.30 % B ON [facility] Neutrophils/100 WBC (Bld) 73 % High 36 - 65 % [facility] Nucleated RBC/100 WBC (Bld) [Ratio] 0.0 % 0.0 per 100 WBC [facility] Platelet mean volume (Bld) [Entitic vol] 9.4 fL 8.1 - 13.5 fL [facility] Platelets (Bld) [#/Vol] 297 10*3/uL [facility] RBC (Bld) [#/Vol] 3.80 10*6/uL Low 3.95 - 5.1 1 m/uL [facility] Segmented neutrophils/100 WBC (Bld) 9.30 % High [facility] WBC other (Bld) [#/Vol] 12.6 High B ON [facility] EKG 12 Leadon 06-11-2023 Atrial Rate 95 BPM [facility] P [place] 53 degrees [facility] P-R Interval 156 ms [facility] Q-T Interval 358 ms [facility] QRS Duration 88 ms [facility] QTc Calculation (Bazett) 449 ms [facility] R [place] 19 degrees [facility] T [place] 54 degrees [facility] Ventricular Rate 95 BPM [facility] Normal sinus rhythm Normal ECG When compared with ECG of 06-AUG-2022 17:11, No significant change was found Confirmed by Nathan Ardon MD ([id number]) on 06/11/2023 4:31:21 PM [facility] RADIOLOG[facility] Nathan Ardon MD - 06/11/2023 Normal sinus rhythm Normal ECG When compared with ECG of 06-AUG-2022 17:11, No significant change was found Confirmed by Nathan Ardon MD ([id number]) on 06/11/2023 4:31:21 PM [facility] EKG Rhythm Stripon 3 [facility] Glucose, Whole Bloodon 06-11 Glucose [Mass/Vol] 407 mg/dL High 74 - 100 mg/dL [facility] Interpretation and review of laboratory results Abnormal [facility] Glucose [Mass/Vol] 473 mg/dL High 74 - 100 mg/dL [facility] Interpretation and review of laboratory results Abnormal [facility] Glucose [Mass/Vol] 336 mg/dL High 74 - 100 mg/dL [facility] Interpretation and review of laboratory results Abnormal [facility] Glucose [Mass/Vol] 168 mg/dL High 74 - 100 mg/dL [facility] Interpretation and review of laboratory results Abnormal [facility] Lactate, Sepsison 06-11-2023 Lactate (BldV) [Moles/Vol] 1.7 mmol/L 0.5 - 1.9 mmol/L [facility] Lactate (BldV) [Moles/Vol] 1.7 mmol/L 0.5 - 1.9 mmol/L [facility] Procalcitoninon 06-11-2023 Procalcitonin [Mass/Vol] 0.07 ng/[facility] Comment on above: Suspected Sepsis: <0.50 [...] entered into the Change in Procalcitonin Calculator ([email or web address]-wtd-tugcntunla.[employer] [place]) to determine the patient's Mortality Risk Prognosis In healthy neonates, plasma Procalcitonin (PCT) concentrations increase gradually after , reaching peak values at about 24 hours of age then decrease to normal values below 0.5 ng/mL by 48-72 hours of age. [facility] Troponinon 06-11-2023 Interpretation and review of laboratory results Abnormal [facility] Troponin I.cardiac High sensitivity method [Mass/Vol] 26 ng/L High 0 - 14 ng/L [facility] Comment on above: High Sensitivity Tro ponin values cannot be compared with other Troponin methodologies. [facility] CBC with Auto Differentialon 06-10-2023 Basophils (Bld) [#/Vol] 0.07 10*3/uL [facility] Basophils/100 WBC (Bld) 1 % 0 - 2 % B ON [facility] Eosinophils (Bld) [#/Vol] 0.40 10*3/uL [facility] Eosinophils/100 WBC (Bld) 5 % High 1 - 4 % [facility] Erythrocyte distribution width (RBC) [Ratio] 14.0 % 11.8 - 14.4 % [facility] Hematocrit (Bld) [Volume fraction] 41.8 % 36.3 - 47.1 % [facility] Hemoglobin (Bld) [Mass/Vol] 13.3 g/dL 11.9 - 15.1 g/dL [facility] Immature granulocytes (Bld) [#/Vol] 0.16 10*3/uL [facility] Immature granulocytes/100 WBC (Bld) 2 % High 0 [facility] Interpretation and review of laboratory results Abnormal [facility] Lymphocytes/100 WBC (Bld) 34 % 24 - 43 % [facility] Lymphocytes/100 WBC (Bld) 2.92 % [facility] MCH (RBC) [Entitic mass] 31.4 pg 25.2 - 33.5 pg [facility] MCHC (RBC) [Mass/Vol] 31.8 g/dL 28.4 - 34.8 g/dL [facility] MCV (RBC) [Entitic vol] 98.6 fL 82.6 - 102.9 fL [facility] Monocytes/100 WBC (Bld) 8 % 3 - 12 % B [facility] Monocytes/100 WBC (Bld) 0.67 % B ON [facility] Neutrophils/100 WBC (Bld) 50 % 36 - 65 % [facility] Nucleated RBC/100 WBC (Bld) [Ratio] 0.0 % 0.0 per 100 WBC [facility] Platelet mean volume (Bld) [Entitic vol] 9.1 fL 8.1 - 13.5 fL [facility] Platelets (Bld) [#/Vol] 370 10*3/uL [facility] RBC (Bld) [#/Vol] 4.24 10*6/uL 3.95 - 5.1 1 m/uL [facility] Segmented neutrophils/100 WBC (Bld) 4.33 % [facility] WBC other (Bld) [#/Vol] 8.[address] [facility] CMPon 06-10-2023 Albumin [Mass/Vol] 4.7 g/dL 3.5 - 5.2 g/dL [facility] Albumin/Globulin [Mass ratio] 1.6 {ratio} 1.0 - 2.5 [facility] ALP [Catalytic activity/Vol] 71 U/L 35 - 104 U/L [facility] ALT [Catalytic activity/Vol] 33 U/L 5 - 33 U/L [facility] Anion gap [Moles/Vol] 10 mmol/L 9 - 17 mmol/L [facility] AST [Catalytic activity/Vol] 33 U/L High NINF - 32 U/L [facility] Bilirubin [Mass/Vol] 0.2 mg/dL Low 0.3 - 1 .2 mg/dL [facility] Calcium [Mass/Vol] 10.2 mg/dL 8.6 - 10. 4 mg/dL [facility] Chloride [Moles/Vol] 98 mmol/L 98 - 10 7 mmol/L [facility] CO2 [Moles/Vol] 31 mmol/L 20 - 31 mmol/L [facility] Creatinine [Mass/Vol] 1.1 mg/dL High 0.5 - 0.9 mg/dL [facility] GFR/1.73 sq M.predicted MDRD (S/P/Bld) [Vol rate/Area] - PINF [facility] Comment on above: These results are [...] 109 mg/dL High 70 - 99 mg/dL [facility] Interpretation and review of laboratory results Abnormal [facility] Potassium [Moles/Vol] 4.2 mmol/L 3.7 - 5.3 mmol/L [facility] Protein [Mass/Vol] 7.7 g/dL 6.4 - 8.3 g/dL [facility] Sodium [Moles/Vol] 139 mmol/L 135 - 144 mmol/L [facility] Urea nitrogen [Mass/Vol] 15 mg/dL 6 - 20 mg/dL [facility] Urea nitrogen/Creatinine [Mass ratio] 14 mg/mg 9 - 20 [facility] COVID-19, Rapidon 06-10-2023 SARS-CoV-2 (COVID-19) RdRp gene ASHLEY+probe Ql (Resp) Not detected Not Detected [facility] Comment on above: Rapid NAAT: The [...] management decisions. Fact sheet for Healthcare Providers: https://www.fda.gov/media/330692/download Fact sheet for Patients: https://www.fda.gov/media/179462/download Methodology: Isothermal Nucleic Acid Amplification Specimen Description .NASOPHARYNGEAL SWAB [facility] CT CERVICAL SPINE WO CONTRAS Ton 06-10-2023 1. No acute traumatic abnormality involving the cervical spine. [facility] RIS CONSOLIDATED EXAMINATION: CT OF THE CERVICAL [...] not a suspected or confirmed emergency medical condition->Emergenc y Medical Condition ([place]) Is the patient ?->No FINDINGS: BONES/ALIGNMENT: There is no acute fracture or traumatic malalignment. 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 SOFT TISSUES: There is no prevertebral soft tissue swelling. [facility] Niles Barbosa MD - [...] not a suspected or confirmed emergency medical condition->Emergenc y Medical Condition (MA) Is the patient ?->No FINDINGS: BONES/ALIGNMENT: There is no acute fracture or traumatic malalignment. 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 SOFT TISSUES: There is no prevertebral soft tissue swelling. IMPRESSION: 1. No acute traumatic abnormality involving the cervical spine. [facility] Radiology Study observation (narrative) [facility] CT CERVICAL SPINE WO CONTRAS TOrdered By: Niles Barbosa on 06-10-2023 [facility] Work Phone: CT CHEST PULMONARY EMBOLISM W CONTRASTon 06-10-2023 Mild nonspecific bibasilar interstitial infiltrates. Coronary artery disease. [facility] EXAMINATION: CTA OF THE [...] not a suspected or confirmed emergency medical condition->Emergenc y Medical Condition (MA) FINDINGS: Pulmonary Arteries: Pulmonary [...] No acute bone or soft tissue abnormality. [facility] Zak Duque MD - [...] not a suspected or confirmed emergency medical condition->Emergenc y Medical Condition (MA) FINDINGS: Pulmonary Arteries: Pulmonary [...] nonspecific bibasilar interstitial infiltrates. Coronary artery disease. [facility] Radiology Study observation (narrative) [facility] CT Head WO Contraston 2022 No acute intracranial abnormality. [facility] RIS CONSOLIDATED EXAMINATION: CT OF [...] not a suspected or confirmed emergency medical condition->Emergenc y Medical Condition (MA) Is the patient ?->No [...] of the visualized skull or soft tissues. [facility] Zak Duque MD - 06/10/2023 EXAMINATION: CT [...] not a suspected or confirmed emergency medical condition->Emergenc y Medical Condition (MA) Is the patient ?->No [...] soft tissues. IMPRESSION: No acute intracranial abnormality. [facility] Radiology Study observation (narrative) [facility] CT Head WO ContrastOrdered B y: Zak Duque on 06-10-2023 [facility] Work Phone: Magnesiumon 06-10-2023 Magnesium [Mass/Vol] 2.0 mg/dL 1.6 - 2 .6 mg/dL [facility] No Panel Informationon 06-10 [facility] Troponinon 06-10-2023 Interpretation and review of laboratory results Abnormal [facility] Troponin I.cardiac High sensitivity method [Mass/Vol] 27 ng/L High 0 - 14 ng/L [facility] Comment on above: High Sensitivity Tro ponin values cannot be compared with other Troponin methodologies. [facility] XR CHEST (2 VW)on 06-10-2023 No acute process. [facility] CON[facility] EXAMINATION: TWO XRAY VIEWS OF THE CHEST 06/10/2023 9:33 pm COMPARISON: None. HISTORY: ORDERING SYSTEM PROVIDED HISTORY: Cough x1wk TECHNOLOGIST PROVIDED HISTORY: Cough x1wk FINDINGS: The lungs are without acute focal process. There is no effusion or pneumothorax. The cardiomediastinal silhouette is without acute process. The osseous structures are without acute process. [facility] Zak Duque MD - [...] without acute process. IMPRESSION: No acute process. [facility] Radiology Study observation (narrative) [facility] POINT OF CARE GLUCOSEon - Glucose [Mass/Vol] 136 mg/dL Critically high 74-106 [facility] Comment on above: Performed By: #### P OCGLUC #### [facility] [address] [address] [address] Chidi Reyes POINT OF CARE GLUCOSEon - Glucose [Mass/Vol] 129 mg/dL Critically high 74-106 T [facility] Comment on above: Performed By: #### P OCGLUC #### [facility] [address] [address] [address] Chidi Reyes MRI THORACIC SPINE WO CONTRA STon 12-28-2022 No acute abnormality in the thoracic spine. No significant spinal canal or neural foraminal narrowing. [facility] EXAMINATION: MRI OF THE [...] neural foraminal narrowing of the thoracic spine. [facility] Sessions, DO Shabbir - 12/28/2022 EXAMINATION: MRI OF [...] significant spinal canal or neural foraminal narrowing. [employer] Phone: Radiology Study observation (narrative) [employer] Work Phone: MRI THORACIC SPINE WO CONTRA STOrdered By: Shabbir Weaver on 12-28-2022 [employer] Phone: Colonoscopy studyon 12-09-19 No dictation [employer] Phone: Colonoscopy studyOrdered By: User Epic on 12-08-2022 [facility] Work Phone: Glucose, Whole Bloodon 12-08 Glucose [Mass/Vol] 117 mg/dL High 74 - 100 mg/dL [facility] [employer] Interpretation and review of laboratory results Abnormal [facility] XR TSPINE 2 VIEWSon 12-02-19 23 XR TSPINE 2 VIEWS EXAMINATION: XR TSPINE 2 VIEWS, XR LSPINE 2_3 VIEWS HISTORY: [...] PHILLIP CAMACHO Date: 2022-12-01 09:45 Normal [facility] MRI LUMBAR SPINE WO CONTRAST on 11-17-2022 Mild degenerative change without canal stenosis or foraminal narrowing. RECOMMENDATIONS: Unavailable [facility] RIS CONSOLIDATED EXAMINATION: MRI OF THE LUMBAR [...] is no canal stenosis or foraminal narrowing. [facility] Vern Choi MD - 11/17/2022 EXAMINATION: [...] canal stenosis or foraminal narrowing. RECOMMENDATIONS: Unavailable [employer] Phone: Radiology Study observation (narrative) [employer] [employer] Phone: MRI LUMBAR SPINE WO CONTRAST Ordered By: Vern Olivo on 11-17-2022 [employer] Phone: Basic Metabolic Panelon Anion gap [Moles/Vol] 14.5 mmol/L Normal 6.0-15.0 [facility] Comment on above: Performed By: #### D IFF CBC, BMP #### [facility] [address] Calcium [Mass/Vol] 9.2 mg/dL Normal 8.2-10.2 [facility] Comment on above: Performed By: #### D IFF CBC, BMP #### [facility] [address] Chloride [Moles/Vol] 101 mmol/L Normal 95-114 [facility] Comment on above: Performed By: #### D IFF CBC, BMP #### [facility] [address] CO2 [Moles/Vol] 24.0 mmol/L Normal 22.0-30.0 [facility] Comment on above: Performed By: #### D IFF CBC, BMP #### [facility] [address] [place] [address] Creatinine [Mass/Vol] 1.02 mg/dL Normal 0.44-1.[address] [facility] Comment on above: Performed By: #### D IFF CBC, BMP #### [facility] [address] [place] [address] Creatinine Clr Calc Pharmacy 78.76 [facility] Comment on above: Result Comment: PERF ORMED BY: [place] [address] PATHOLOGIST MICROBIAL SPECIALIST GRZEGORZ DUMONT M.D. Performed By: #### D IFF CBC, BMP #### [facility] [address] [place] [address] Estimated GFR ( Mai > 60 [facility] Comment on above: Result Comment: GFR estimated reference range: According to KDOQI guidelines, <60 ml/min/1.73m2 is sufficient to diagnose a patient with chronic kidney disease. Performed By: #### D IFF CBC, BMP #### [facility] [address] [place] [address] [place] Estimated GFR (Non- Am 58 [facility] Comment on above: Performed By: #### D IFF CBC, BMP #### [facility] [address] [place] [address] [place] Glucose [Mass/Vol] 223 mg/dL High 70-100 [facility] Comment on above: Result Comment: [place] Glucose Reference Range is dependent on time and content of last meal. Glucose of more than 200 mg/dL in a nonstressed, ambulatory subject supports the diagnosis of Diabetes Mellitus. ADA recommended reference range Performed By: #### D IFF CBC, BMP #### [facility] [address] Potassium [Moles/Vol] 4.5 mmol/L Normal 3.5-5.[address] [facility] Comment on above: Performed By: #### D IFF CBC, BMP #### [facility] [address] Sodium [Moles/Vol] 135 mmol/L Low 136-146 [facility] Comment on above: Performed By: #### D IFF CBC, BMP #### [facility] [address] [place] [address] [place] Urea nitrogen [Mass/Vol] 29 mg/dL High 9-23 [facility] Comment on above: Performed By: #### D IFF CBC, BMP #### [facility] [address] [place] [address] [place] Glucose Poct Glucometerson 0 10-04-2022 Glucose [Mass/Vol] 239 mg/dL Normal [facility] Comment on above: Result Comment: [facility] Glucose Reference Range is dependent on time and content of last meal. Glucose of more than 200 mg/dL in a nonstressed, ambulatory subject supports the diagnosis of Diabetes Mellitus. PERFORMED BY: [place] [address] PATHOLOGIST MICROBIAL SPECIALIST GRZEGORZ DUMONT M.D. Performed By: #### G LULS #### Point of Care testing , Glucose [Mass/Vol] 234 mg/dL Normal [facility] Comment on above: Result Comment: [place] om Glucose Reference Range is dependent on time and content of last meal. Glucose of more than 200 mg/dL in a nonstressed, ambulatory subject supports the diagnosis of Diabetes Mellitus. PERFORMED BY: [facility] [address] [place] [address] PATHOLOGIST MICROBIAL SPECIALIST GRZEGORZ DUMONT M.D. Performed By: #### G OZZIE #### Point of Care testing , COVID-19 [...] developed and its performance characteristic determined by [employer] and validated at [facility]. This test has not been [...] for SARS Antigen by RY PERFORMED BY: [facility] [address] [place] [address] PATHOLOGIST MICROBIAL SPECIALIST GRZEGORZ DUMONT M.D. Normal [facility] Comment on above: Performed By: #### C OVID-19 TAB, SOFIANEG #### [facility] [address] COVID-19 SOFIAOrdered By: Lucas Oliver on 09-30-2022 SARS-CoV+SARS-CoV-2 (COVID-19) Ag IA.rapid Ql (Resp) Negative Negative [facility] Comment on above: This is a duplicate Tab SARS Antigen (RY) result to be used for statistical tracking purpose only. No Panel InformationOrdered By: Shiraz Sherman on 09-30-2022 SARS Antigen (LFIA) [facility] Tab Ag Negativeon 09-30-19 Tab Ag Negative Negative Normal Negative [facility] Comment on above: Result Comment: This is a duplicate Tab SARS Antigen (RY) result to be used for statistical tracking purpose only. PERFORMED BY: [place] [address] PATHOLOGIST MICROBIAL SPECIALIST GRZEGORZ DUMONT M.D. Performed By: #### C OVID-19 TAB, SOFIANEG #### [facility] [address] [place] [address] Tilt Table Teston 09-29-2022 Sharon Vargas MD - 09/29/2022 11:59 PM EST [address] [id number] TILT TABLE TEST PATIENT NAME: RISA WARNER : 1975 MED REC NO: [id number] ROOM: ACCOUNT NO: [id number] ADMIT DATE: 09/29/2022 PROVIDER: Sharon Vargas MD [...] up with their primary care physician and/or running specialist as previously scheduled. STUDY CONCLUSIONS: Abnormal head [...] VARGAS MD YURY/JULIUS_KIARA Doc#: Unknown CC: Vivian Oseugera, SENIOR ARCHITECT/DESIGN MANAGER-HOME CARE MANAGER [employer] Phone: Tilt Table TestOrdered By: Cheo Vargas on 09-29-2022 [employer] Phone: LDL Cholesterol, [employer] Cholesterol in LDL [Mass/Vol] 48 mg/dL NINF - 100 mg/dL [facility] Farrukh 09-21-2022 ALT [Catalytic activity/Vol] U/L Low 5 - 33 U/L [facility] Interpretation and review of laboratory results Abnormal [facility] Fredy 09-21-2022 AST [Catalytic activity/Vol] U/L NINF - 32 U/L [facility] Band form neutrophils/100 WB C Manual cnt (Bld)Ordered By: Shiraz Sherman on 09-21-2022 Band form neutrophils/100 WBC (Bld) 4 % 0-5 [facility] Basic Metabolic Panelon 08-27 Anion gap [Moles/Vol] 14.4 mmol/L Normal 6.0-15.0 [facility] Comment on above: Performed By: #### D IFF CBC, BMP #### [facility] [address] Calcium [Mass/Vol] 10.0 mg/dL Normal 8.2-10.2 [facility] Comment on above: Result Comment: PERF ORMED BY: [place] [address] PATHOLOGIST MICROBIAL SPECIALIST GRZEGORZ DUMONT M.D. Performed By: #### D IFF CBC, BMP #### [facility] [address] [place] [address] [place] Chloride [Moles/Vol] 99 mmol/L Normal 95-114 [facility] Comment on above: Performed By: #### D IFF CBC, BMP #### [facility] [address] [place] [id number] [place] CO2 [Moles/Vol] 23.5 mmol/L Normal 22.0-30.0 [facility] Comment on above: Performed By: #### D IFF CBC, BMP #### [facility] [address] [place] [address] [place] Creatinine [Mass/Vol] 0.91 mg/dL Normal 0.44-1.[address] [facility] Comment on above: Performed By: #### D IFF CBC, BMP #### [facility] [address] [place] [address] [place] Estimated GFR ( Mai > 60 [facility] Comment on above: Result Comment: GFR estimated reference range: According to KDOQI guidelines, <60 ml/min/1.73m2 is sufficient to diagnose a patient with chronic kidney disease. Performed By: #### D IFF CBC, BMP #### [facility] [address] Estimated GFR (Non- Am > 60 [facility] Comment on above: Performed By: #### D IFF CBC, BMP #### [facility] [address] Glucose [Mass/Vol] 270 mg/dL High 70-100 [facility] Comment on above: Result Comment: [place] Glucose Reference Range is dependent on time and content of last meal. Glucose of more than 200 mg/dL in a nonstressed, ambulatory subject supports the diagnosis of Diabetes Mellitus. ADA recommended reference range Performed By: #### D IFF CBC, BMP #### [address] Potassium [Moles/Vol] 4.9 mmol/L Normal 3.5-5.[address] [facility] Comment on above: Performed By: #### D IFF CBC, BMP #### [address] Sodium [Moles/Vol] 132 mmol/L Low 136-146 [facility] Comment on above: Performed By: #### D IFF CBC, BMP #### [address] Urea nitrogen [Mass/Vol] 20 mg/dL Normal 9-23 [facility] Comment on above: Performed By: #### D IFF CBC, BMP #### [place] [address] [place] Anion gap [Moles/Vol] 15 mmol/L 9 - 17 mmol/L [facility] Calcium [Mass/Vol] 10.2 mg/dL 8.6 - 10. 4 mg/dL [facility] Chloride [Moles/Vol] 98 mmol/L 98 - 10 7 mmol/L [facility] CO2 [Moles/Vol] 22 mmol/L 20 - 31 mmol/L [facility] Creatinine [Mass/Vol] 0.85 mg/dL 0.50 - 0.90 mg/dL [facility] GFR/1.73 sq M.predicted MDRD (S/P/Bld) [Vol rate/Area] - PINF [facility] Comment on above: Effective Jun 28, [...] 271 mg/dL High 70 - 99 mg/dL [facility] Interpretation and review of laboratory results Abnormal [facility] Potassium [Moles/Vol] 4.8 mmol/L 3.7 - 5.3 mmol/L [facility] Sodium [Moles/Vol] 135 mmol/L 135 - 144 mmol/L [facility] Urea nitrogen (BldV) [Mass/Vol] 22 mg/dL High 6 - 20 mg/dL [facility] Urea nitrogen/Creatinine (Bld) [Mass ratio] 26 High 9 - 20 [facility] Basophils Auto (Bld) [#/Vol] Ordered By: Shiarz Sherman on 09-21-2022 Basophils (Bld) [#/Vol] N/A F [facility] Basophils/100 WBC Auto (Bld) Ordered By: Shiraz Sherman on 09-21-2022 Basophils/100 WBC (Bld) N/A F [facility] Basophils/100 WBC Manual cnt (Bld)Ordered By: Shiraz Sherman on 09-21-2022 Basophils/100 WBC (Bld) 1 % 0-2 F [facility] CBC with Auto Differentialon 09-21-2022 Absolute Eos # 0.57 High [facility] Absolute Immature Granulocyte 0.19 [facility] Absolute Lymph # 3.29 [facility] Absolute Power # 0.66 [facility] Basophils (Bld) [#/Vol] 0.11 10*3/uL [facility] Basophils/100 WBC (Bld) 1 % 0 - 2 % B ON [facility] Eosinophils/100 WBC (Bld) 6 % High 1 - 4 % [facility] Hematocrit (Bld) [Volume fraction] 43.2 % 36.3 - 47.1 % [facility] Hemoglobin (Bld) [Mass/Vol] 13.9 g/dL 11.9 - 15.1 g/dL [facility] Immature granulocytes/100 WBC (Bld) 2 % High 0 [facility] Interpretation and review of laboratory results Abnormal [facility] Lymphocytes/100 WBC (Bld) 35 % 24 - 43 % [facility] MCH (RBC) [Entitic mass] 32.3 pg 25.2 - 33.5 pg [facility] MCHC (RBC) [Mass/Vol] 32.2 g/dL 28.4 - 34.8 g/dL [facility] MCV (RBC) [Entitic vol] 100.5 fL 82.6 - 102.9 fL [facility] Monocytes/100 WBC (Bld) 7 % 3 - 12 % B ON [facility] NRBC Automated 0.0 0.0 per 100 WBC [facility] Platelet distribution width (Bld) [Ratio] 13.2 % 11.8 - 14.4 % [facility] Platelet mean volume (Bld) [Entitic vol] 9.1 fL 8.1 - 13.5 fL [facility] Platelets (Bld) [#/Vol] 393 10*3/uL [facility] RBC (Bld) [#/Vol] 4.30 10*6/uL 3.95 - 5.1 1 m/uL [facility] Segmented neutrophils/100 WBC (Bld) 49 % 36 - 65 % [facility] Segs Absolute 4.59 [facility] WBC (Bld) [#/Vol] 9.4 10*3/uL [facility] Creatinine and Glomerular fi ltration rate.predicted panel (S/P/Bld)Ordered By: Shiraz Sehrman on 09-21-2022 Creatinine [Mass/Vol] 0.91 mg/dL 0.44-1.[address] [facility] Diff and CBCon 09-21-2022 Band form neutrophils/100 WBC (Bld) 4 % Normal 0-5 [facility] Comment on above: Performed By: #### D IFF CBC, BMP #### [facility] [address] Basophils/100 WBC (Bld) 1 % Normal 0-2 F [facility] Comment on above: Performed By: #### D IFF CBC, BMP #### [facility] [address] Eosinophils/100 WBC (Bld) 7 % High 1-3 [facility] Comment on above: Performed By: #### D IFF CBC, BMP #### [facility] [address] Erythrocyte distribution width (RBC) [Ratio] 14.2 % Normal 11.9-15.3 [facility] Comment on above: Performed By: #### D IFF CBC, BMP #### [facility] [address] Giant Platelet Tally 2 /100{WBC} Normal [facility] Comment on above: Performed By: #### D IFF CBC, BMP #### [facility] [address] [place] [address] Hematocrit (Bld) [Volume fraction] 38.8 % Normal 34.0-46.4 [facility] Comment on above: Performed By: #### D IFF CBC, BMP #### [facility] [address] [place] [address] [place] Hemoglobin (Bld) [Mass/Vol] 12.9 g/dL Normal 11.8-15.4 [facility] Comment on above: Performed By: #### D IFF CBC, BMP #### [facility] [address] [place] [address] [place] Lymphocytes/100 WBC (Bld) 15 % Low 18-42 [facility] Comment on above: Performed By: #### D IFF CBC, BMP #### [facility] [address] [place] [address] MCH (RBC) [Entitic mass] 31.0 pg Normal 24.7-34.3 [facility] Comment on above: Performed By: #### D IFF CBC, BMP #### [facility] [address] [place] [address] MCV (RBC) [Entitic vol] 93.3 fL Normal 80-100 F [facility] Comment on above: Performed By: #### D IFF CBC, BMP #### [facility] [address] [place] [address] Mean Corpuscular HGB Conc 33.2 g/dL Normal 32.0-35.0 [facility] Comment on above: Performed By: #### D IFF CBC, BMP #### [facility] [address] [place] [address] Metamyelocytes 2 % High 0-0 [facility] Comment on above: Performed By: #### D IFF CBC, BMP #### [facility] [address] [place] [address] Monocytes/100 WBC (Bld) 9 % Normal 2-11 F [facility] Comment on above: Performed By: #### D IFF CBC, BMP #### [facility] [address] [place] [address] Myelocytes 1 % High 0-0 [facility] Comment on above: Performed By: #### D IFF CBC, BMP #### [facility] [address] [place] [address] Platelet Estimate Normal Normal Normal [facility] Comment on above: Performed By: #### D IFF CBC, BMP #### [address] Platelet mean volume (Bld) [Entitic vol] 7.4 fL Normal 6.3-10.7 [facility] Comment on above: Result Comment: PERF ORMED BY: [place] [address] PATHOLOGIST MICROBIAL SPECIALIST GRZEGORZ DUMONT M.D. Performed By: #### D IFF CBC, BMP #### [address] Platelet Morphology Normal Normal Normal [facility] Comment on above: Result Comment: PERF ORMED BY: [place] [address] PATHOLOGIST MICROBIAL SPECIALIST GRZEGORZ DUMONT M.D. Performed By: #### D IFF CBC, BMP #### [facility] [address] [place] [address] [place] Platelets (Bld) [#/Vol] 363 10*3/uL Normal 150-450 [facility] Comment on above: Performed By: #### D IFF CBC, BMP #### [place] [address] [place] RBC (Bld) [#/Vol] 4.16 10*6/uL Normal 3.60-5.00 [facility] Comment on above: Performed By: #### D IFF CBC, BMP #### [facility] [address] [place] [address] RBC morphology finding Nom (Bld) Normal Normal Normal [facility] Comment on above: Performed By: #### D IFF CBC, BMP #### [facility] [address] [place] [address] [place] Segmented neutrophils/100 WBC (Bld) 62 % Normal 50-70 [facility] Comment on above: Performed By: #### D IFF CBC, BMP #### [facility] [address] [place] [address] [place] WBC (Bld) [#/Vol] 8.4 10*3/uL Normal 3.8-11.6 [facility] Comment on above: Performed By: #### D IFF CBC, BMP #### [facility] [address] [place] [address] ECG 12 lead ECGon 09-21-2022 ECG 12 lead ECG [facility] [place] [address] Electrocardiograph Report Signed Patient: Risa Warner MR#: [id number] 52 : 1975 Acct:[id number] Age/Sex: 47 / F ADM Date: 09/21/22 Loc: PS Room: Type: [facility] Attending Dr: Shiraz Sherman MD Ordering Provider: [...] John Sanchez MD 1 11/22/21 1710 Normal [facility] Eosinophils Auto (Bld) [#/Vo l]Ordered By: Shiraz Sherman on 09-21-2022 Eosinophils (Bld) [#/Vol] N/A [facility] Eosinophils/100 WBC Auto (Bl d)Ordered By: Shiraz Sherman on 09-21-2022 Eosinophils/100 WBC (Bld) N/A [facility] Eosinophils/100 WBC Manual c nt (Bld)Ordered By: Shiraz Sherman on 09-21-2022 Eosinophils/100 WBC (Bld) 7 % 1-3 [facility] Erythrocyte distribution wid th Auto (RBC) [Ratio]Ordered By: Shiraz Sherman on 09-21-2022 Erythrocyte distribution width (RBC) [Ratio] 14.2 % 11.9-15.3 [facility] Estimated glomerular filtrat ion rate (GFR) non- AmericanOrdered By: Shiraz Sherman on 09-21-2022 GFR/1.73 sq M.predicted among non-blacks MDRD (S/P/Bld) [Vol rate/Area] > 60 mL/Min [facility] Giant platelets/100 leukocyt es [Ratio] in Blood by Manual countOrdered By: Shiraz Sherman on 09-21-2022 Giant platelets/100 WBC Manual cnt (Bld) [Ratio] 2 /100{WBC} [facility] Hematocrit Auto (Bld) [Volum e fraction]Ordered By: Shiraz Sherman on 09-21-2022 Hematocrit (Bld) [Volume fraction] 38.8 % 34.0-46.4 [facility] Hemoglobin [Mass/volume] in BloodOrdered By: Shiraz Sherman on 09-21-2022 Hemoglobin (Bld) [Mass/Vol] 12.9 g/dL 11.8-15.4 [facility] Leukocytes [#/volume] correc priya for nucleated erythrocytes in Blood by Automated counOrdered By: Shiraz Sherman on 09-21-2022 WBC corrected for nucl RBC Auto (Bld) [#/Vol] 8.4 10*3/uL 3.8-11.6 [facility] Lipid Panelon 09-21-2022 Cholesterol [Mass/Vol] 215 mg/dL High NINF - 200 mg/dL [facility] Comment on above: Cholesterol Guidelines: <200 Desirable 200-240 Borderline >240 Undesirable Cholesterol in HDL [Mass/Vol] 21 mg/dL Low 40 - PINF mg/dL [facility] Comment on above: HDL Guidelines: <40 Undesirable 40-59 Borderline >59 Desirable Cholesterol.total/Poppy sterol in HDL [Mass ratio] 10.2 {ratio} High NINF - 5 [facility] Interpretation and review of laboratory results Abnormal [facility] LDL Cholesterol 0 - 130 mg/dL [facility] Comment on above: Calculation not tracy d for Triglyceride value greater than 400 mg/dL. Direct LDL reflexed LDL Guidelines: <100 Desirable 100-129 Near to/above Desirable 130-159 Borderline >159 Undesirable Direct (measured) LDL and calculated LDL are not interchangeable tests. Triglyceride [Mass/Vol] 1567 mg/dL High NINF - 150 mg/dL [facility] [employer] [facility] Comment on above: Triglyceride Guidelines: <150 Desirable 150-199 Borderline 200-499 High >499 Very high Based on AHA Guidelines for fasting triglyceride, June 2012. [facility] Lymphocytes Auto (Bld) [#/Vo l]Ordered By: Shiraz Sherman on 09-21-2022 Lymphocytes (Bld) [#/Vol] N/A [facility] Lymphocytes/100 WBC Auto (Bl d)Ordered By: Shiraz Sherman on 09-21-2022 Lymphocytes/100 WBC (Bld) N/A [facility] Lymphocytes/100 WBC Manual c nt (Bld)Ordered By: Shiraz Sherman on 09-21-2022 Lymphocytes/100 WBC (Bld) 15 % 18-42 [facility] MCH Auto (RBC) [Entitic mass ]Ordered By: Shiraz Sherman on 09-21-2022 MCH (RBC) [Entitic mass] 31.0 pg 24.7-34.3 [facility] MCHC Auto (RBC) [Mass/Vol]Or dered By: Shiraz Sherman on 09-21-2022 MCHC (RBC) [Mass/Vol] 33.2 g/dL 32.0-35.0 [facility] MCV Auto (RBC) [Entitic vol] Ordered By: Shiraz Sherman on 09-21-2022 MCV (RBC) [Entitic vol] 93.3 fL 80-100 F [facility] Metamyelocytes/100 WBC Manua l cnt (Bld)Ordered By: Shiraz Sherman on 09-21-2022 Metamyelocytes/100 WBC (Bld) 2 % 0-0 [facility] Microalbumin, Uron 2 Albumin/Creatinine DL <= 20 mg/L (24H U) [Mass ratio] mg/L NINF - 21 mg/L [facility] Albumin/Creatinine DL <= 20 mg/L (U) [Ratio] Can not be calculated [facility] Creatinine [Mass/Vol] 80.3 mg/dL 28.0 - 217.0 mg/dL [facility] Monocytes Auto (Bld) [#/Vol] Ordered By: Shiraz Sherman on 09-21-2022 Monocytes (Bld) [#/Vol] N/A F [facility] Monocytes/100 WBC Auto (Bld) Ordered By: Shiraz Sherman on 09-21-2022 Monocytes/100 WBC (Bld) N/A F [facility] Monocytes/100 WBC Manual cnt (Bld)Ordered By: Shiraz Sherman on 09-21-2022 Monocytes/100 WBC (Bld) 9 % 2-11 [facility] Myelocytes/100 WBC Manual cn t (Bld)Ordered By: Shiraz Sherman on 09-21-2022 Myelocytes/100 WBC (Bld) 1 % 0-0 [facility] Neutrophils Auto (Bld) [#/Vo l]Ordered By: Shiraz Sherman on 09-21-2022 Neutrophils (Bld) [#/Vol] N/A [facility] Neutrophils/100 WBC Auto (Bl d)Ordered By: Shiraz Sherman on 09-21-2022 Neutrophils/100 WBC (Bld) N/A [facility] No Panel InformationOrdered By: Shiraz Sherman on 09-21-2022 Estimated GFR () > 60 mL/Min [facility] Comment on above: GFR estimated refere nce range: According to KDOQI guidelines, <60 ml/min/1.73m2 is sufficient to diagnose a patient with chronic kidney disease. Pharmacy Creatinine Clearance (Chem N/A [facility] No Panel Informationon 09-21 [facility] Nucleated erythrocytes [Pres ence] in Blood by Automated countOrdered By: Shiraz Sherman on 09-21-2022 Nucleated RBC Auto Ql (Bld) N/A [facility] Platelet adequacy [Presence] in Blood by Light microscopyOrdered By: Shiraz Sherman on 09-21-2022 Platelets LM Ql (Bld) Normal Normal [facility] Platelet mean volume Auto (B ld) [Entitic vol]Ordered By: Shiraz Sherman on 09-21-2022 Platelet mean volume (Bld) [Entitic vol] 7.4 fL 6.3-10.7 [facility] Platelet morphology finding [Identifier] in BloodOrdered By: Shiraz Sherman on 09-21-2022 Platelet morphology finding Nom (Bld) Normal Normal [facility] Platelets Auto (Bld) [#/Vol] Ordered By: Shiraz Sherman on 09-21-2022 Platelets (Bld) [#/Vol] 363 10*3/uL 150-450 [facility] RBC Auto (Bld) [#/Vol]Ordere d By: Shiraz Sherman on 09-21-2022 RBC (Bld) [#/Vol] 4.16 10*6/uL 3.60-5.00 [facility] RBC morphologyOrdered By: Lucas Oliver on 09-21-2022 RBC morphology finding Nom (Bld) Normal Normal [facility] Segmented neutrophils/100 WB C Manual cnt (Bld)Ordered By: Shiraz Sherman on 09-21-2022 Segmented neutrophils/100 WBC (Bld) 62 % 50-70 [facility] Serum or plasma anion gap de terminationOrdered By: Shiraz Sherman on 09-21-2022 Anion gap [Moles/Vol] 14.4 mmol/L 6.0-15.0 [facility] Serum or plasma calcium josh urement (mass/volume)Ordered By: Shiraz Sherman on 09-21-2022 Calcium [Mass/Vol] 10.0 mg/dL 8.2-10.2 [facility] Serum or plasma chloride claus surement (moles/volume)Ordered By: Shiraz Sherman on 09-21-2022 Chloride [Moles/Vol] 99 mmol/L 95-114 [facility] Serum or plasma glucose josh urement (mass/volume)Ordered By: Shiraz Sherman on 09-21-2022 Glucose [Mass/Vol] 270 mg/dL 70-100 [facility] Comment on above: ADA recommended refe rence rangeRandom Glucose Reference Range is dependent on time and content of last meal. Glucose of more than 200 mg/dL in a nonstressed, ambulatory subject supports the diagnosis of Diabetes Mellitus. Serum or plasma potassium me asurement (moles/volume)Ordered By: Shiraz Sherman on 09-21-2022 Potassium [Moles/Vol] 4.9 mmol/L 3.5-5.[address] [facility] Serum or plasma sodium measu rement (moles/volume)Ordered By: Shiraz Sherman on 09-21-2022 Sodium [Moles/Vol] 132 mmol/L 136-146 [facility] Serum or plasma total carbon dioxide measurement (moles/volume)Ordered By: Shiraz Sherman on 09-21-2022 CO2 [Moles/Vol] 23.5 mmol/L 22.0-30.0 [facility] Serum or plasma urea nitroge n measurement (mass/volume)Ordered By: Shiraz Sherman on 09-21-2022 Urea nitrogen [Mass/Vol] 20 mg/dL 06-18 [facility] WBC Auto (Bld) [#/Vol]Ordere d By: Shiraz Sherman on 09-21-2022 WBC (Bld) [#/Vol] 8.4 10*3/uL 3.8-11.6 [facility] POINT OF CARE GLUCOSEon 08-27 Glucose [Mass/Vol] 151 mg/dL Critically high 74-106 [facility] Comment on above: Performed By: #### P OCGLUC #### [facility] [address] [place], [place] [address] Dr. Chidi Reyes POINT OF CARE GLUCOSEon 08-26 Glucose [Mass/Vol] 184 mg/dL Critically high 74-106 [facility] Comment on above: Performed By: #### P OCGLUC ####[facility] [address] [id number] Reyes POINT OF CARE GLUCOSEon 07-27 Glucose [Mass/Vol] 95 mg/dL Normal 74-106 [facility] Comment on above: Performed By: #### P OCGLUC ####[facility] [address] [place] [id number] Reyes Basic Metabolic Panelon 07-27 Anion gap [Moles/Vol] 18 mmol/L High 9 - 17 mmol/L [facility] Calcium [Mass/Vol] 9.6 mg/dL 8.6 - 10. 4 mg/dL [facility] Chloride [Moles/Vol] 98 mmol/L 98 - 10 7 mmol/L [facility] CO2 [Moles/Vol] 22 mmol/L 20 - 31 mmol/L [facility] Creatinine [Mass/Vol] 0.91 mg/dL High 0.50 - 0.90 mg/dL [facility] GFR/1.73 sq M.predicted MDRD (S/P/Bld) [Vol rate/Area] - PINF [facility] Comment on above: Effective Jun 28, [...] 207 mg/dL High 70 - 99 mg/dL [facility] Interpretation and review of laboratory results Abnormal [facility] Potassium [Moles/Vol] 4.8 mmol/L 3.7 - 5.3 mmol/L [facility] Sodium [Moles/Vol] 138 mmol/L 135 - 144 mmol/L [facility] Urea nitrogen (BldV) [Mass/Vol] 28 mg/dL High 6 - 20 mg/dL [facility] Urea nitrogen/Creatinine (Bld) [Mass ratio] 31 High 9 - 20 [facility] CBC with Auto Differentialon 08-06-2022 Absolute Eos # 0.35 [facility] Absolute Immature Granulocyte 0.10 [facility] Absolute Lymph # 3.09 [facility] Absolute Power # 0.73 [facility] Basophils (Bld) [#/Vol] 0.09 10*3/uL [facility] Basophils/100 WBC (Bld) 1 % 0 - 2 % B [facility] Eosinophils/100 WBC (Bld) 4 % 1 - 4 % [facility] Hematocrit (Bld) [Volume fraction] 39.6 % 36.3 - 47.1 % [facility] Hemoglobin (Bld) [Mass/Vol] 12.8 g/dL 11.9 - 15.1 g/dL [facility] Immature granulocytes/100 WBC (Bld) 1 % High 0 [facility] Interpretation and review of laboratory results Abnormal [facility] Lymphocytes/100 WBC (Bld) 36 % 24 - 43 % [facility] MCH (RBC) [Entitic mass] 31.3 pg 25.2 - 33.5 pg [facility] MCHC (RBC) [Mass/Vol] 32.3 g/dL 28.4 - 34.8 g/dL [facility] MCV (RBC) [Entitic vol] 96.8 fL 82.6 - 102.9 fL [facility] Monocytes/100 WBC (Bld) 9 % 3 - 12 % B [facility] NRBC Automated 0.0 0.0 per 100 WBC [facility] Platelet distribution width (Bld) [Ratio] 13.2 % 11.8 - 14.4 % [facility] Platelet mean volume (Bld) [Entitic vol] 8.9 fL 8.1 - 13.5 fL [facility] Platelets (Bld) [#/Vol] 368 10*3/uL [facility] RBC (Bld) [#/Vol] 4.09 10*6/uL 3.95 - 5.1 1 m/uL [facility] Segmented neutrophils/100 WBC (Bld) 49 % 36 - 65 % [facility] Segs Absolute 4.20 [facility] WBC (Bld) [#/Vol] 8.6 10*3/uL [facility] D-Dimer, Quantitativeon 11- D-Dimer, Quant 0.39 [facility] Comment on above: When combined [...] more prevalent in patients with distal DVT. [facility] Troponinon 08-06-2022 Interpretation and review of laboratory results Abnormal [facility] Troponin, High Sensitivity 20 ng/L High 0 - 14 ng/L [facility] Comment on above: High Sensitivity Troponin values cannot be compared with other Troponin methodologies. Patients with high levels of Biotin oral intake (i.e >5mg/day) may have falsely decreased Troponin levels. Samples collected within 8 hours of biotin intake may require additional information for diagnosis. [facility] Interpretation and review of laboratory results Abnormal [facility] [employer] Troponin, High Sensitivity 19 ng/L High 0 - 14 ng/L [facility] Comment on above: High Sensitivity Troponin values cannot be compared with other Troponin methodologies. Patients with high levels of Biotin oral intake (i.e >5mg/day) may have falsely decreased Troponin levels. Samples collected within 8 hours of biotin intake may require additional information for diagnosis. [facility] XR CHEST PORTABLEon 08-06-20 No evidence of acute cardiopulmonary process. Large body habitus. [facility] CON[facility] EXAMINATION: ONE XRAY VIEW OF THE [...] is present over the lower thoracic spine. [facility] Cristina English MD - [...] of acute cardiopulmonary process. Large body habitus. [employer] Phone: Radiology Study observation (narrative) [employer] Phone: XR CHEST PORTABLEOrdered By: Cristina English on 08-06-2022 [employer] Phone: US LIVERon 08-04-2022 Liver shows increased echogenicity suggesting hepatic steatosis without focal lesion. With otherwise unremarkable exam [facility] RIS CONSOLIDATED EXAMINATION: RIGHT UPPER QUADRANT ULTRASOUND 08/04/2022 [...] No evidence of right upper quadrant ascites. [facility] Ruddy Mallory DO - 08/04/2022 [...] without focal lesion. With otherwise unremarkable exam [employer] Work Phone: Radiology Study observation (narrative) [place] [employer] Work Phone: US LIVEROrdered By: Ruddy choi on 08-04-2022 [facility] Work Phone: Ceruloplasminon 07-20-2022 Ceruloplasmin 22 mg/dL 16 - 45 mg/dL [facility] [employer] [facility] [employer] [facility] Hepatitis B Surface Antibody on 07-20-2022 HBV surface Ab (S) [Titer] <3.50 NINF [facility] [employer] Comment on above: REFERENCE RANGE: <10.0 NON-REACTIVE/NOT IMMUNE >=10.0 REACTIVE/IMMUNE [facility] [employer] CBC with Auto Differentialon 07-19-2022 Absolute Eos # 0.32 [place] [facility] [employer] Absolute Immature Granulocyte 0.07 [facility] [employer] Absolute Lymph # 3.05 [facility] [employer] Absolute Power # 0.53 [facility] [employer] Basophils (Bld) [#/Vol] 0.06 10*3/uL [facility] [employer] Basophils/100 WBC (Bld) 1 % 0 - 2 % [facility] [employer] Eosinophils/100 WBC (Bld) 4 % 1 - 4 % [facility] [employer] Hematocrit (Bld) [Volume fraction] 38.1 % 36.3 - 47.1 % [facility] [employer] Hemoglobin (Bld) [Mass/Vol] 11.9 g/dL 11.9 - 15.1 g/dL [facility] [employer] Immature granulocytes/100 WBC (Bld) 1 % High 0 [facility] [employer] Interpretation and review of laboratory results Abnormal [facility] [employer] Lymphocytes/100 WBC (Bld) 40 % 24 - 43 % [facility] [employer] MCH (RBC) [Entitic mass] 31.1 pg 25.2 - 33.5 pg [facility] MCHC (RBC) [Mass/Vol] 31.2 g/dL 28.4 - 34.8 g/dL [facility] MCV (RBC) [Entitic vol] 99.5 fL 82.6 - 102.9 fL [facility] Monocytes/100 WBC (Bld) 7 % 3 - 12 % B ON [facility] NRBC Automated 0.0 0.0 per 100 WBC [facility] Platelet distribution width (Bld) [Ratio] 13.7 % 11.8 - 14.4 % [facility] Platelet mean volume (Bld) [Entitic vol] 8.9 fL 8.1 - 13.5 fL [facility] Platelets (Bld) [#/Vol] 357 10*3/uL [facility] RBC (Bld) [#/Vol] 3.83 10*6/uL Low 3.95 - 5.1 1 m/uL [facility] Segmented neutrophils/100 WBC (Bld) 47 % 36 - 65 % [facility] Segs Absolute 3.61 [facility] WBC (Bld) [#/Vol] 7.6 10*3/uL [facility] Comprehensive Metabolic Pane l with Bilirubinon 07-19-2022 Albumin [Mass/Vol] 4.6 g/dL 3.5 - 5.2 g/dL [facility] Albumin/Globulin [Mass ratio] 1.8 {ratio} 1.0 - 2.5 [facility] ALP (Bld) [Catalytic activity/Vol] 53 U/L 35 - 104 U/L [facility] ALT [Catalytic activity/Vol] 36 U/L High 5 - 33 U/L [facility] Anion gap [Moles/Vol] 13 mmol/L 9 - 17 mmol/L [facility] AST [Catalytic activity/Vol] 37 U/L High NINF - 32 U/L [facility] Bilirubin [Mass/Vol] 0.2 mg/dL Low 0.3 - 1 .2 mg/dL [facility] Bilirubin, Indirect Can not be calculated 0.00 - 1.00 mg/dL [facility] Bilirubin.indirect [Mass/Vol] mg/dL NINF - 0.31 mg/dL [facility] Calcium [Mass/Vol] 9.2 mg/dL 8.6 - 10. 4 mg/dL [facility] Chloride [Moles/Vol] 102 mmol/L 98 - 10 7 mmol/L [facility] CO2 [Moles/Vol] 24 mmol/L 20 - 31 mmol/L [facility] Creatinine [Mass/Vol] 0.88 mg/dL 0.50 - 0.90 mg/dL [facility] GFR/1.73 sq M.predicted MDRD (S/P/Bld) [Vol rate/Area] - PINF [facility] Comment on above: Effective Jun 28, [...] 116 mg/dL High 70 - 99 mg/dL [facility] Interpretation and review of laboratory results Abnormal [facility] Potassium [Moles/Vol] 4.9 mmol/L 3.7 - 5.3 mmol/L [facility] Protein [Mass/Vol] 7.2 g/dL 6.4 - 8.3 g/dL [facility] Sodium [Moles/Vol] 139 mmol/L 135 - 144 mmol/L [facility] Urea nitrogen (BldV) [Mass/Vol] 28 mg/dL High 6 - 20 mg/dL [facility] POINT OF CARE GLUCOSEon 03-26 Glucose [Mass/Vol] 106 mg/dL Normal 74-106 [facility] Comment on above: Performed By: #### P OCGLUC #### [facility] [address] [address] [address] Chidi Reyes VL LOWER EXTREMITY ARTERIAL SEGMENTAL PRESSURES W PPGon 04-01-2022 Ruddy Mallory DO - 04/01/2022 [facility] Vascular Lower Arterial Plethysmography Procedure Patient Name TIMMY Date of Study 03/31/2022 RISA Cooper Date of 1975 Gender Female Age 47 year(s) Race Room Number Corporate ID [id number] # Patient Acct [id number] # MR # [id number] Lactation Specialist Vicki Spicer RVT Interpreting Physician Ruddy Mallory DO Referring Referring Physician Vivian Oseguera Nurse Practitioner Procedure Type of Study: Extremities Arteries: Lower Arterial Plethysmography, PVR Lower. Indications for Study:Claudication. Patient Status:Out Patient. Technical Quality:Adequate visualization. Comments:Simultaneo us real time imaging utilizing B-Mode, color doppler and spectral waveform analysis was performed on the bilateral lower extremities for arterial examination. Conclusions Summary Mild PAD suggested Left lower extremity Signature ------- ------- ------- ------- Findings: Right Impression: Left Impression: PVR waveforms are normal. PVR waveforms are normal. Doppler waveforms are normal. Doppler waveforms are normal. Ankle pressures are normal with Ankle pressures are mildly abnormal ABIs of 0.96 and 0.94. with ABIs of 0.90 and 0.87. Toe pressures are normal. Toe pressures are normal. Allergies - Allergy:Penicillin( Drug). Velocities are measured in cm/s ; Diameters are measured in cm Pressures + -++--------+-----+- ---+--------+----- + ! !!Right ! !Left! ! ! + -++--------+-----+- ---+--------+----- + !Location !!Pressure!Ratio! !Pressure!Ratio! + -++--------+-----+- ---+--------+----- + !Ankle PT !!128 !0.96 ! !121 !0.9 ! + -++--------+-----+- ---+--------+----- + !Ankle DP !!126 !0.94 ! !117 !0.87 ! + -++--------+-----+- ---+--------+----- + !Great Toe !!114 !0.85 ! !107 !0.8 ! + -++--------+-----+- ---+--------+----- + - Brachial Pressure:Right: 134.Left:128. - MARY:Right: 0.96.Left: 0.9. Plethysmographic Digit Evaluation +---------++------- -+-----+ ----++--------+---- -+ + ! !!Right ! !Left !! ! ! ! +---------++------- -+-----+ ----++--------+---- -+ + !Location !!Pressure!Ratio!PP G Wave Form !!Pressure!Ratio!PP G Wave Form ! +---------++------- -+-----+ ----++--------+---- -+ + !Great Toe!!114 !0.85 ! !!107 !0.8 ! ! +---------++------- -+-----+ ----++--------+---- -+ + [place] [employer] Phone: VL LOWER EXTREMITY ARTERIAL SEGMENTAL PRESSURES W PPGOrdered By: Ruddy Mallory on 04-01-2022 [employer] [place] Phone: VL LOWER EXTREMITY ARTERIAL SEGMENTAL PRESSURES W PPGon 03-31-2022 Radiology Study observation (narrative) [place] ALLEN [employer] Phone: Creatine Kinaseon 03-02-2022 CK [Catalytic activity/Vol] 274 U/L High 22-269 [facility] Comment on above: Result Comment: PERF ORMED BY: [place] [address] PATHOLOGIST MICROBIAL SPECIALIST GRZEGORZ DUMONT M.D. Performed By: #### C K #### [address] #### SJOGRENS #### [facility] , Sjogrens Anti-SSA/SSBon SS-A/Ro Sjogrens Antibody <0.2 Normal 0.0-0.9 [facility] Comment on above: Performed By: #### C K #### [place] [address] [place] #### SJOGRENS #### [facility] , SS-B/La Sjogrens Antibody <0.2 Normal 0.0-0.9 [facility] Comment on above: Result Comment: Perf ormed at: - [facility] [address] [id number] Livestock Rancher: Chandana Oliveros PhD, Phone: [phone] PERFORMED BY: [place] [address] PATHOLOGIST MICROBIAL SPECIALIST GRZEGORZ DUMONT M.D. Performed By: #### C K #### [place] [address] [place] #### SJOGRENS #### [facility] , XR hand BI 2Von 03-02-2022 XR hand BI 2V [facility] Main [place] [address] [place], [place] [id number] XRay Report Signed Patient: Risa Warner MR#: [id number] 52 : 1975 Acct:[id number] Age/Sex: 47 / F ADM Date: 03/02/22 Loc: ICXD Room: Type: [facility] Attending Dr: Sam Hidalgo MD Ordering Provider: Sam Hidalgo MD Date of Service: 03/02/22 XR/XR hand BI 2V: pain Copies to: Sam Hidalgo MD 2 viewsboth handsplain film COMPARISON:None HISTORY:Multiple regions of joint pain in the hands. No bony erosion. There are mild interphalangeal degenerative changes. No bony lesion. No fracture or dislocation. No soft tissue calcification. 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 Impression dictated by: Edwin White M.D.03/02/2022 4:09 PM Dictation Location: [place] [address] Transcribed By: [facility] 03/02/22 1609 Dictated By: Edwin White DO 03/02/22 1608 Signed By: 03/02/22 1609 [facility] MARISOL DIGITAL SCREEN BILA TERALOrdered By: Vivian Oseguera on 05-15-2021 No mammographic evidence of malignancy. BI-RADS 1 BIRADS: BIRADS - CATEGORY 1 Negative, no evidence of malignancy. Normal interval follow-up is recommended in 12 months. OVERALL ASSESSMENT - NEGATIVE A letter of notification will be sent to the patient regarding the results. [employer] recommends annual mammograms for women 40 years and older. [employer] Phone: EXAMINATION: SCREENING DIGITAL BILATERAL MAMMOGRAM WITH TOMOSYNTHESIS, 05/15/2021 TECHNIQUE: Screening mammography was performed with tomosynthesis including MLO and CC views of the bilateral breasts. Computer aided detection was used for the interpretation of this exam. COMPARISON: 03/12/2016 HISTORY: Screening. FINDINGS: The breast tissue is composed of scattered fibroglandular tissue. There is no suspicious mass, suspicious microcalcification, or area of architectural distortion. [employer] Work Phone: [facility] Phone: US FIBROSCANon 04-14-2021 US FIBROSCAN Velocity Controlled Transient Elastography (Fibroscan) Pre School Teacher: Ameena Crisostomo Attending: Leah Martins MD ? [...] S2-3. Clinical correlation indicated Leah Martins MD [facility] Interpreted by: Leah Martins MD Signed by: Leah Martins MD 04/14/21 Final result Normal [facility] FerritinOrdered By: Claudia Willett on 03-12-2021 Ferritin 199 ug/L High 13 - 150 ug/L [facility] Work Phone: Iron and TIBCOrdered By: Carmen Willett on 03-12-2021 Iron [Mass/Vol] 71 ug/dL 37 - 145 ug/dL [facility] [employer] Work Phone: Iron Saturation 17 % Low 20 - 55 % [facility] Work Phone: TIBC 412 ug/dL 250 - 450 ug/dL [facility] Work Phone: UIBC 341 ug/dL 112 - 347 ug/dL [facility] Work Phone: No Panel InformationOrdered By: Claudia Willett on 03-12-2021 Interpretation and review of laboratory results Abnormal [employer] Phone: [employer] Phone: CBCOrdered By: Claudia Willett on 03-11-2021 Hematocrit (Bld) [Volume fraction] 45.2 % 36.3 - 47.1 % [employer] Phone: Hemoglobin.gastrointest inal spec 1 Ql (Stl) 14.1 g/dL 11.9 - 15.1 g/dL [employer] Phone: MCH (RBC) [Entitic mass] 30.2 pg 25.2 - 33.5 pg [employer] Phone: MCHC (RBC) [Mass/Vol] 31.2 g/dL 28.4 - 34.8 g/dL [employer] Phone: MCV (RBC) [Entitic vol] 96.8 fL 82.6 - 102.9 fL [employer] Phone: NRBC Automated 0.0 0.0 per 100 WBC [employer] Phone: Platelet distribution width (Bld) [Ratio] 12.5 % 11.8 - 14.4 % [employer] Phone: Platelet mean volume (Bld) [Entitic vol] 9.0 fL 8.1 - 13.5 fL [employer] Phone: Platelets (Bld) [#/Vol] 372 10*3/uL [employer] Phone: RBC (Bld) [#/Vol] 4.67 10*6/uL 3.95 - 5.1 1 m/uL [employer] Phone: WBC (Bld) [#/Vol] 7.5 10*3/uL [employer] Phone: [employer] Phone: Comprehensive Metabolic Pane lOrdered By: Claudia Willett on 03-11-2021 Albumin [Mass/Vol] 4.6 g/dL 3.5 - 5.2 g/dL [employer] Phone: Albumin/Globulin [Mass ratio] 1.8 {ratio} [employer] Phone: ALP (Bld) [Catalytic activity/Vol] 88 U/L 35 - 104 U/L [employer] Phone: ALT [Catalytic activity/Vol] 52 U/L High 5 - 33 U/L [employer] Phone: Anion gap [Moles/Vol] 12 mmol/L 9 - 17 mmol/L [employer] Phone: AST [Catalytic activity/Vol] 45 U/L High <32 [employer] Phone: Bilirubin [Mass/Vol] 0.32 mg/dL 0.3 - 1 .2 mg/dL [employer] Phone: Calcium [Mass/Vol] 9.8 mg/dL 8.6 - 10. 4 mg/dL [employer] Phone: Chloride [Moles/Vol] 102 mmol/L 98 - 10 7 mmol/L [employer] Phone: CO2 [Moles/Vol] 25 mmol/L 20 - 31 mmol/L [employer] Phone: Creatinine [Mass/Vol] 0.68 mg/dL 0.50 - 0.90 mg/dL [employer] Phone: Free PSA/Total PSA [Mass fraction] 7.2 g/dL 6.4 - 8.3 g/dL [employer] Phone: GFR >60 >60 mL/min [employer] Phone: GFR Non- >60 >60 mL/min [employer] Phone: Glucose [Mass/Vol] 231 mg/dL High 70 - 99 mg/dL [facility] [employer] Phone: Interpretation and review of laboratory results Abnormal [facility] [employer] Phone: Potassium [Moles/Vol] 4.7 mmol/L 3.7 - 5.3 mmol/L [facility] [employer] Phone: Sodium [Moles/Vol] 139 mmol/L 135 - 144 mmol/L [facility] [employer] Phone: Urea nitrogen (BldV) [Mass/Vol] 24 mg/dL High 6 - 20 mg/dL [facility] [employer] Phone: Urea nitrogen/Creatinine (Bld) [Mass ratio] 35 High [facility] [employer] Phone: [facility] [employer] Phone: Hepatitis B Core Antibody, T otalOrdered By: Claudia Willett on 03-11-2021 Hep B Core Total Ab Non-Reactive NONREACTIVE [facility] [employer] Phone: Hepatitis B Surface AntigenO rdered By: Claudia Willett on 03-11-2021 Hepatitis B Surface Ag Non-Reactive NONREACTIVE [facility] [employer] Phone: Hepatitis C AntibodyOrdered By: Claudia Willett on 03-11-2021 Hepatitis C Ab Non-Reactive NONREACTIVE [facility] Work Phone: Comment on above: The [...] GFR/1.73 sq M.predicted MDRD (S/P/Bld) [Vol rate/Area] [facility] [employer] Phone: Comment on above: Average GFR for 40-4 9 years old: 99 mL/min/1.73sq m Chronic Kidney Disease: <60 mL/min/1.73sq m Kidney failure: <15 mL/min/1.73sq m eGFR calculated using average adult body mass. Additional eGFR calculator available at: http://www.XATA/multiple_crcl_2012.htm Stage 1: Some kidney damage normal GFR Stage 2: Mild kidney damage GFR 60-89 Stage 3: Moderate kidney damage GFR 30-59 Stage 4: Severe kidney damage GFR 15-29 Stage 5: Severe kidney damage GFR <15 ESRD - chronic treatment by dialysis or transplant No Panel InformationOrdered By: Claudia Willett on 03-11-2021 [employer] Phone: Hepatic Function PanelOrdere d By: Vivian Oseguera on 02-09-2021 Albumin [Mass/Vol] 4.3 g/dL 3.5 - 5.2 g/dL [employer] Phone: Albumin/Globulin [Mass ratio] 1.3 {ratio} [employer] Phone: ALP (Bld) [Catalytic activity/Vol] 102 U/L 35 - 104 U/L [employer] Phone: ALT [Catalytic activity/Vol] 34 U/L High 5 - 33 U/L [employer] Phone: AST [Catalytic activity/Vol] 24 U/L <32 [employer] Phone: Bilirubin [Mass/Vol] 0.24 mg/dL Low 0.3 - 1 .2 mg/dL [employer] Phone: Bilirubin, Indirect CANNOT BE CALCULATED 0.00 - 1.00 mg/dL [employer] Phone: Bilirubin.indirect [Mass/Vol] mg/dL <0.31 mg/dL [employer] Phone: Free PSA/Total PSA [Mass fraction] 7.5 g/dL 6.4 - 8.3 g/dL [employer] Phone: Globulin NOT REPORTED 1.5 - 3.8 g/dL [facility] [employer] Work Phone: Interpretation and review of laboratory results Abnormal [facility] Work Phone: [facility] Work Phone: Urinalysis with MicroscopicO rdered By: Meghan León on 01-28-2021 - [facility] Work Phone: Amorphous, UA NOT REPORTED None [facility] Center[facility]gan[facility] Work Phone: Bacteria, UA 2+ Abnormal None [facility] [employer] Work Phone: Bilirubin Urine Negative NEGATIVE [facility] Work Phone: Casts UA NOT REPORTED /LPF [facility] Work Phone: Color, UA YELLOW YELLOW [facility] [employer] Work Phone: Crystals, UA NOT REPORTED None /HPF [employer] Work Phone: Epithelial Cells UA 2 TO 5 [facility] [employer] Work Phone: Glucose, Ur 1+ Abnormal NEGATIVE [facility] Work Phone: Interpretation and review of laboratory results Abnormal [facility] Work Phone: Ketones Ql (U) Negative NEGATIVE [facility] Work Phone: Leukocyte esterase Test strip Ql (U) Negative NEGATIVE [facility] [employer] Work Phone: Mucus, UA NOT REPORTED None [facility] [employer] Work Phone: Nitrite, Urine Negative NEGATIVE [facility] [employer] Work Phone: Other Observations UA NOT REPORTED NOT REQ. M [facility] [employer] Work Phone: pH, UA 6.0 [facility] [employer] Work Phone: Protein, UA Negative NEGATIVE [facility] [employer] Work Phone: RBC, UA 0 TO 2 [employer] Phone: Renal Epithelial, UA NOT REPORTED 0 /HPF [employer] Work Phone: Specific [place], UA >1.030 High [employer] Phone: Trichomonas, UA NOT REPORTED None [employer] Work Phone: Turbidity UA CLEAR CLEAR [facility] Work Phone: Urinalysis Comments NOT REPORTED [facility] [employer] Work Phone: Urine Hgb Negative NEGATIVE [facility] Phone: Urobilinogen, Urine Normal Normal [facility] Phone: WBC, UA 0 TO 2 [facility] Phone: Yeast, UA NOT REPORTED None [employer] Phone: XR ABDOMEN (KUB) (SINGLE AP VIEW)Ordered By: Meghan León on 01-27-2021 Suggestion of a very small calcification over the lower pole of the left kidney. Probable hepatomegaly. No evidence of obstructive bowel process. [employer] Phone: EXAMINATION: ONE SUPINE XRAY VIEW(S) OF THE [...] battery pack over the left iliac wing. [employer] Phone: Vitaly, Mhpn Incoming Radiant Results From [employer] 24/7 - 01/27/2021 1:29 PM EDT EXAMINATION: ONE [...] hepatomegaly. No evidence of obstructive bowel process. [employer] Phone: CT LUMBAR SPINE W CONTRASTOr dered By: Corye Cleveland on 01-20-2021 Shallow disc bulges at L4-5 and L5-S1. No significant focal disc protrusion or stenosis is appreciated. Spinal stimulator device. [employer] Phone: EXAMINATION: CT OF THE LUMBAR SPINE WITH [...] No significant focal disc protrusion is detected. [employer] Phone: Vitaly, Mhpn Incoming Radiant Results From INPHI/Pacs - 01/20/2021 3:43 PM EDT EXAMINATION: CT [...] or stenosis is appreciated. Spinal stimulator device. [employer] Phone: Lipid Panelon 08-13-2020 Cholesterol [Mass/Vol] 127 mg/dL <200 [facility], [place] Comment on above: Cholesterol Guidelines: <200 Desirable 200-240 Borderline >240 Undesirable Cholesterol in HDL [Mass/Vol] 28 mg/dL Low >40 [facility], [place] Comment on above: HDL Guidelines: <40 Undesirable 40-59 Borderline >59 Desirable Cholesterol in LDL [Mass/Vol] 31 mg/dL 0 - 130 mg/dL [place], [place] Comment on above: LDL Guidelines: <100 Desirable 100-129 Near to/above Desirable 130-159 Borderline >159 Undesirable Direct (measured) LDL and calculated LDL are not interchangeable tests. Cholesterol in VLDL [Mass/Vol] NOT REPORTED High 1 - 30 mg/dL [place] Cholesterol.total/Poppy sterol in HDL [Mass ratio] 4.5 {ratio} <5 [place] Interpretation and review of laboratory results Abnormal [place] Triglyceride [Mass/Vol] 340 mg/dL High <150 M [place], [place] Comment on above: Triglyceride Guidelines: <150 Desirable 150-199 Borderline 200-499 High >499 Very high Based on AHA Guidelines for fasting triglyceride, June 2012. CT HEAD WO CONTRASTon 2019 No acute intracranial abnormality. [place] EXAMINATION: CT OF THE HEAD WITHOUT CONTRAST [...] of the visualized skull or soft tissues. [place] Vitaly, Mhpn Incoming Radiant Results From INPHI/Polimaxs - 07/25/2020 12:02 PM EDT EXAMINATION: CT [...] soft tissues. IMPRESSION: No acute intracranial abnormality. [place] XR ABDOMEN (KUB) (SINGLE AP VIEW)on 01-25-2020 1. No renal or ureteral calculi identified. 2. Mild constipation. [place] EXAMINATION: ONE SUPINE XRAY VIEW(S) OF THE [...] colon and rectum. No acute osseous abnormality. [place] Vitaly, Mhpn Incoming Radiant Results From INPHI/Taxi 24/7 - 01/25/2020 10:09 PM EDT EXAMINATION: ONE [...] or ureteral calculi identified. 2. Mild constipation. [place] C-Reactive Proteinon 020 CRP [Mass/Vol] 2.8 mg/L 0 - 5 mg/L [place] CKon 12-28-2019 Total CK 107 U/L 26 - 192 U/L [place] Hemoglobin A1Con 12-28-2019 Glucose [Mass/Vol] 263 mg/dL [place] Comment on above: The ADA and AACC rec ommend providing the estimated average glucose result to permit better patient understanding of their HBA1c result. HbA1c (Bld) [Mass fraction] 10.8 % High 4.8 - 5.9 % [place] Interpretation and review of laboratory results Abnormal [place] IgAon 12-28-2019 IgA [Mass/Vol] 225 mg/dL 70 - 400 mg/dL [place] IgGon 12-28-2019 IgG [Mass/Vol] 768 mg/dL 700 - 1600 mg/dL [place] IgMon 12-28-2019 IgM [Mass/Vol] 97 mg/dL 40 - 230 mg/dL [place] Lactate Dehydrogenaseon LD 151 U/L 135 - 214 U/L [place] Sedimentation Rateon 020 Sed Rate 14 mm 0 - 20 mm [place] T4on 12-28-2019 T4, Total 6.7 ug/dL 4.5 - 12 ug/dL [place] T4, Freeon 12-28-2019 Thyroxine, Free 1.02 ng/dL 0.93 - 1.7 ng/dL [place] TSH without Reflexon 020 TSH Qn 0.70 m[IU]/L [place] ALTOrdered By: Flip izquierdo 10-18-2019 ALT [Catalytic activity/Vol] 26 U/L 5 - 33 U/L [facility] [place] Phone: ASTOrdered By: Flip izquierdo 10-18-2019 AST [Catalytic activity/Vol] 20 U/L <32 [facility] Phone: AmylaseOrdered By: Flip vernon on 10-18-2019 Amylase [Catalytic activity/Vol] 45 U/L 28 - 100 U/L [facility] [employer] Phone: Basic Metabolic PanelOrdered By: Flip Dodson on 10-18-2019 Anion gap [Moles/Vol] 17 mmol/L 9 - 17 mmol/L [employer] Phone: Bun/Cre Ratio 25 High Yibailin [employer] Work Phone: Calcium [Mass/Vol] 9.6 mg/dL 8.6 - 10. 4 mg/dL [employer] Phone: Chloride [Moles/Vol] 96 mmol/L Low 98 - 10 7 mmol/L [facility] Phone: CO2 [Moles/Vol] 22 mmol/L 20 - 31 mmol/L [employer] Phone: Creatinine [Mass/Vol] 0.63 mg/dL 0.5 - 0.9 mg/dL [employer] Phone: GFR >60 >60 mL/min [employer] Phone: GFR Comment [facility] Phone: Comment on above: Average GFR for 40-4 9 years old: 99 mL/min/1.73sq m Chronic Kidney Disease: <60 mL/min/1.73sq m Kidney failure: <15 mL/min/1.73sq m eGFR calculated using average adult body mass. Additional eGFR calculator available at: http://www.XATA/multiple_crcl_2012.htm GFR Non- >60 >60 mL/min [facility] Phone: GFR Staging [facility] Phone: Comment on above: Stage 1: Some kidney damage normal GFR Stage 2: Mild kidney damage GFR 60-89 Stage 3: Moderate kidney damage GFR 30-59 Stage 4: Severe kidney damage GFR 15-29 Stage 5: Severe kidney damage GFR <15 ESRD - chronic treatment by dialysis or transplant Glucose [Mass/Vol] 389 mg/dL High 70 - 99 mg/dL [employer] Phone: Interpretation and review of laboratory results Abnormal [employer] Phone: Potassium [Moles/Vol] 4.4 mmol/L 3.7 - 5.3 mmol/L [employer] Work Phone: Sodium [Moles/Vol] 135 mmol/L 135 - 144 mmol/L [employer] Work Phone: Urea nitrogen [Mass/Vol] 16 mg/dL 6 - 20 mg/dL [employer] Phone: CBC Auto DifferentialOrdered By: Flip Dodson on 10-18-2019 Absolute Eos # 0.[address] [employer] [facility] Work Phone: Absolute Immature Granulocyte 0.10 [employer] Work Phone: Absolute Lymph # 3.09 [employer] [facility] Work Phone: Absolute Power # 0.50 [employer] [facility] Work Phone: Basophils (Bld) [#/Vol] 0.09 10*3/uL [employer] Work Phone: Basophils/100 WBC (Bld) 1 % 0 - 2 % M [facility] Work Phone: Differential Type NOT REPORTED [facility] Phone: Eosinophils/100 WBC (Bld) 3 % 1 - 4 % [employer] Phone: Erythrocyte distribution width (RBC) [Ratio] 11.7 % Low 11.8 - 14.4 % [facility] Phone: Hematocrit (Bld) [Volume fraction] 45.7 % 36.3 - 47.1 % [employer] Phone: Hemoglobin (Bld) [Mass/Vol] 14.4 g/dL 11.9 - 15.1 g/dL [employer] Phone: Immature granulocytes/100 WBC (Bld) 1 % High 0 [facility] Phone: Interpretation and review of laboratory results Abnormal [facility] Phone: Lymphocytes/100 WBC (Bld) 39 % 24 - 43 % [facility] Work Phone: MCH (RBC) [Entitic mass] 30.4 pg 25.2 - 33.5 pg [employer] Phone: MCHC (RBC) [Mass/Vol] 31.5 g/dL 28.4 - 34.8 g/dL [facility] Phone: MCV (RBC) [Entitic vol] 96.4 fL 82.6 - 102.9 fL [facility] Work Phone: Monocytes/100 WBC (Bld) 6 % 3 - 12 % M [facility] Work Phone: NRBC Automated 0.0 0.0 per 100 WBC [facility] Phone: Platelet Estimate NOT REPORTED [facility] Phone: Platelet mean volume (Bld) [Entitic vol] 9.1 fL 8.1 - 13.5 fL [facility] Work Phone: Platelets (Bld) [#/Vol] 388 10*3/uL [employer] Work Phone: RBC (Bld) [#/Vol] 4.74 10*6/uL 3.95 - 5.1 1 m/uL [facility] Phone: RBC morphology finding Nom (Bld) NOT REPORTED [facility] [employer] Work Phone: Segmented neutrophils/100 WBC (Bld) 50 % 36 - 65 % [facility] Work Phone: Segs Absolute 4.00 [employer] [facility] [employer] Work Phone: WBC (Bld) [#/Vol] 8.0 10*3/uL [facility] Phone: WBC Morphology NOT REPORTED [employer] [facility] Work Phone: LipaseOrdered By: Flip bautista on 10-18-2019 Lipase [Catalytic activity/Vol] 35 U/L 13 - 60 U/L [employer] Phone: US GALLBLADDER RUQOrdered By : Flip Dodson on 10-18-2019 No acute abnormality. Fatty liver. [employer] Phone: EXAMINATION: RIGHT UPPER QUADRANT ULTRASOUND 10/18/2019 [...] No evidence of right upper quadrant ascites. [employer] Phone: Vitaly, [facility] Incoming Radiant Results From [employer] - 10/18/2019 2:07 PM EST EXAMINATION: RIGHT [...] ascites. IMPRESSION: No acute abnormality. Fatty liver. [employer] Phone: EKG 12 LeadOrdered By: Corey Cleveland on 10-03-2019 Atrial Rate 91 BPM [employer] Phone: P [place] 64 degrees [employer] Phone: P-R Interval 164 ms [employer] Phone: Q-T Interval 388 ms [employer] Phone: QRS Duration 90 ms [employer] Phone: QTc Calculation (Bazett) 477 ms [employer] Phone: R [place] 15 degrees [employer] Phone: T [place] 58 degrees [employer] Phone: Ventricular Rate 91 BPM [employer] Work Phone: Normal sinus rhythm Normal ECG When compared with ECG of 26-MAR-2019 16:56, No significant change was found Confirmed by SHARON VARGAS ([id number]) on 10/03/2019 10:54:07 PM [employer] Phone: Vitaly, Mhpn Incoming Ekg Results From [employer] - 10/03/2019 10:54 PM EST Normal sinus rhythm Normal ECG When compared with ECG of 26-MAR-2019 16:56, No significant change was found Confirmed by SHARON VARGAS ([id number]) on 10/03/2019 10:54:07 PM [employer] Phone: Otheron 08-24-2019 Findings suggest gastroparesis for solid materials. [place] EXAMINATION: NUCLEAR MEDICINE GASTRIC EMPTYING STUDY [...] retention, hiatal hernia or reflux was observed. [place] Vitaly, Mhpn Incoming Radiant Results From INPHI/Polimaxs - 08/24/2019 10:08 AM EST EXAMINATION: NUCLEAR [...] IMPRESSION: Findings suggest gastroparesis for solid materials. [place] US HEAD NECK SOFT TISSUE THY [...] more than four nodules should be followed. [place] EXAMINATION: THYROID ULTRASOUND 08/03/2019 COMPARISON: None [...] (2) 2. Echogenicity: Hypoechoic (2) 3. Shape: Preut-evct-eaba (0) 4. Margins: Smooth (0) 5. Echogenic foci: None (0) ACR TI-RADS total points: 4 ACR TI-RADS risk category: TR4 Prior biopsy: Unknown. Cervical lymphadenopathy: No abnormal lymph nodes in the imaged portions of the neck. [employer]- [place], [place] Vitaly, pn Incoming Radiant Results From [employer] - 08/03/2019 3:19 PM EST EXAMINATION: THYROID [...] (2) 2. Echogenicity: Hypoechoic (2) 3. Shape: Hexdm-hyjg-kvim (0) 4. Margins: Smooth (0) 5. Echogenic [...] more than four nodules should be followed. [place] CT ABDOMEN PELVIS W IV CONTR AST Additional Contrast? Oralon 07-30-2019 1. No acute inflammatory process identified. 2. Bilateral punctate nephrolithiasis. 3. Hepatomegaly with steatosis. [place] EXAMINATION: CT OF THE ABDOMEN AND PELVIS [...] Pelvis: No acute findings. Status post hysterectomy. Peritoneum/Retroper itoneum: No free air or free fluid. The aorta is normal in caliber. The visceral branches are patent. No lymphadenopathy. Bones/Soft Tissues: Implanted thoracic neurostimulator. No acute osseous abnormality identified. [place] Vitaly, Mhpn Incoming Radiant Results From INPHI/Polimaxs - 07/30/2019 3:42 PM EST EXAMINATION: CT [...] Pelvis: No acute findings. Status post hysterectomy. Peritoneum/Retroper itoneum: No free air or free fluid. The aorta is normal in caliber. The visceral branches are patent. No lymphadenopathy. Bones/Soft Tissues: Implanted thoracic neurostimulator. No acute osseous abnormality identified. IMPRESSION: 1. No acute inflammatory process identified. 2. Bilateral punctate nephrolithiasis. 3. Hepatomegaly with steatosis. [place] CBC Auto Differentialon 10- Basophils (Bld) [#/Vol] 0.06 10*3/uL [place] Basophils/100 WBC (Bld) 1 % 0 - 2 % M [place] Differential Type NOT REPORTED [place] Eosinophils (Bld) [#/Vol] 0.33 10*3/uL [place] Eosinophils/100 WBC (Bld) 4 % 1 - 4 % [place] Erythrocyte distribution width (RBC) [Ratio] 12.1 % 11.8 - 14.4 % [place] Hematocrit (Bld) [Volume fraction] 45.8 % 36.3 - 47.1 % [place] Hemoglobin (Bld) [Mass/Vol] 14.6 g/dL 11.9 - 15.1 g/dL [place] Immature granulocytes (Bld) [#/Vol] 0.12 10*3/uL [place] Immature granulocytes (Bld) [#/Vol] 1 % High 0 [place] Interpretation and review of laboratory results Abnormal [place] Lymphocytes (Bld) [#/Vol] 3.67 10*3/uL [place] Lymphocytes/100 WBC (Bld) 42 % 24 - 43 % [place] MCH (RBC) [Entitic mass] 30.3 pg 25.2 - 33.5 pg [place] MCHC (RBC) [Mass/Vol] 31.9 g/dL 28.4 - 34.8 g/dL [place] MCV (RBC) [Entitic vol] 95.0 fL 82.6 - 102.9 fL [place] Monocytes (Bld) [#/Vol] 0.66 10*3/uL [place] Monocytes/100 WBC (Bld) 8 % 3 - 12 % M [place] Platelet mean volume (Bld) [Entitic vol] 9.1 fL 8.1 - 13.5 fL [place] Platelets (Bld) [#/Vol] NOT REPORTED [place] Platelets (Bld) [#/Vol] 406 10*3/uL [place] RBC (Bld) [#/Vol] 4.82 10*6/uL 3.95 - 5.1 1 m/uL [place] RBC morphology finding Nom (Bld) NOT REPORTED [place] Segmented neutrophils/100 WBC (Bld) 44 % 36 - 65 % [place] Segs Absolute 3.94 [place] WBC (Bld) [#/Vol] 8.8 10*3/uL [place] WBC (Bld) [#/Vol] 0.0 10*3/uL 0.0 per 10 0 WBC [place] WBC Morphology NOT REPORTED [place] Comprehensive Metabolic Pane yamilet 07-20-2019 Albumin [Mass/Vol] 4.3 g/dL 3.5 - 5.2 g/dL [place] Albumin/Globulin [Mass ratio] 1.2 {ratio} [place] ALP [Catalytic activity/Vol] 85 U/L 35 - 104 U/L [place] ALT [Catalytic activity/Vol] 30 U/L 5 - 33 U/L [place] Anion gap [Moles/Vol] 14 mmol/L 9 - 17 mmol/L [place] AST [Catalytic activity/Vol] 23 U/L <32 [place] Bilirubin Ql (U) 0.21 mg/dL Low 0.3 - 1.2 mg/dL [place] Bun/Cre Ratio 25 High [place] Calcium [Mass/Vol] 9.9 mg/dL 8.6 - 10. 4 mg/dL [place] Chloride [Moles/Vol] 98 mmol/L 98 - 10 7 mmol/L [place] CO2 [Moles/Vol] 24 mmol/L 20 - 31 mmol/L [place] Creatinine [Mass/Vol] 0.63 mg/dL 0.5 - 0.9 mg/dL [place] GFR >60 >60 mL/min [place] GFR Non- >60 >60 mL/min [place] Glucose [Mass/Vol] 328 mg/dL High 70 - 99 mg/dL [place] Interpretation and review of laboratory results Abnormal [place] Potassium [Moles/Vol] 4.9 mmol/L 3.7 - 5.3 mmol/L [place] Protein [Mass/Vol] 7.8 g/dL 6.4 - 8.3 g/dL [place] Sodium [Moles/Vol] 136 mmol/L 135 - 144 mmol/L [place] Urea nitrogen [Mass/Vol] 16 mg/dL 6 - 20 mg/dL [place] Hemoglobin A1Con 07-20-2019 Glucose [Mass/Vol] 260 mg/dL [place] Comment on above: The ADA and AACC rec ommend providing the estimated average glucose result to permit better patient understanding of their HBA1c result. HbA1c (Bld) [Mass fraction] 10.7 % High 4.8 - 5.9 % [place] Interpretation and review of laboratory results Abnormal [place] Lipaseon 07-20-2019 Lipase [Catalytic activity/Vol] 36 U/L 13 - 60 U/L [place] Metabolic Panelon 07-20-2019 GFR/1.73 sq M predicted among non-blacks MDRD (S/P/Bld) [Vol rate/Area] [place], [place] Comment on above: Stage 1: Some [...] body mass. Additional eGFR calculator available at: http://www.XATA/multiple_crcl_2012.htm Glucose, Fastingon 9 Glucose [Mass/Vol] 152 mg/dL High 70 - 99 mg/dL [place] Interpretation and review of laboratory results Abnormal [place] Basic Metabolic Panelon Anion gap [Moles/Vol] 17 mmol/L 9 - 17 mmol/L [place] Bun/Cre Ratio 18 [place] Calcium [Mass/Vol] 9.7 mg/dL 8.6 - 10. 4 mg/dL [place] Chloride [Moles/Vol] 96 mmol/L Low 98 - 10 7 mmol/L [place] CO2 [Moles/Vol] 22 mmol/L 20 - 31 mmol/L [place] Creatinine [Mass/Vol] 0.65 mg/dL 0.5 - 0.9 mg/dL [place] GFR >60 >60 mL/min [place] GFR Non- >60 >60 mL/min [place] Glucose [Mass/Vol] 310 mg/dL High 70 - 99 mg/dL [place] Interpretation and review of laboratory results Abnormal [place] Potassium [Moles/Vol] 4.4 mmol/L 3.7 - 5.3 mmol/L [place] Sodium [Moles/Vol] 135 mmol/L 135 - 144 mmol/L [place] Urea nitrogen [Mass/Vol] 12 mg/dL 6 - 20 mg/dL [place] Hemoglobin A1Con 06-04-2019 Glucose [Mass/Vol] 263 mg/dL [place] Comment on above: The ADA and AACC rec ommend providing the estimated average glucose result to permit better patient understanding of their HBA1c result. HbA1c (Bld) [Mass fraction] 10.8 % High 4.8 - 5.9 % [place] Interpretation and review of laboratory results Abnormal [place] LDL Cholesterol, Directon Cholesterol in LDL [Mass/Vol] 64 mg/dL <100 [place] Comment on above: LDL Guidelines: <100 Desirable 100-129 Near to/above Desirable 130-159 Borderline >159 Undesirable Direct (measured) LDL and calculated LDL are not interchangeable tests. Lipid Panelon 06-04-2019 Cholesterol [Mass/Vol] 166 mg/dL <200 [place], [place] Comment on above: Cholesterol Guidelines: <200 Desirable 200-240 Borderline >240 Undesirable Cholesterol in HDL [Mass/Vol] 28 mg/dL Low >40 [place] Comment on above: HDL Guidelines: <40 Undesirable 40-59 Borderline >59 Desirable Cholesterol in LDL [Mass/Vol] 0 - 130 mg/dL [place] Comment on above: Calculation not tracy d for Triglyceride value greater than 400 mg/dL. Direct LDL reflexed LDL Guidelines: <100 Desirable 100-129 Near to/above Desirable 130-159 Borderline >159 Undesirable Direct (measured) LDL and calculated LDL are not interchangeable tests. Cholesterol in VLDL [Mass/Vol] 1 - 30 mg/dL [place] Cholesterol.total/Poppy sterol in HDL [Mass ratio] 5.9 {ratio} High <5 [place] Interpretation and review of laboratory results Abnormal [place] Triglyceride [Mass/Vol] 665 mg/dL High <150 M [place], [place] Comment on above: Triglyceride Guidelines: <150 Desirable 150-199 Borderline 200-499 High >499 Very high Based on AHA Guidelines for fasting triglyceride, June 2012. Metabolic Panelon 06-04-2019 GFR/1.73 sq M predicted among non-blacks MDRD (S/P/Bld) [Vol rate/Area] [place], [place] Comment on above: Average GFR for 40-4 9 years old: 99 mL/min/1.73sq m Chronic Kidney Disease: <60 mL/min/1.73sq m Kidney failure: <15 mL/min/1.73sq m eGFR calculated using average adult body mass. Additional eGFR calculator available at: http://www.XATA/multiple_crcl_2012.htm Stage 1: Some kidney damage normal GFR Stage 2: Mild kidney damage GFR 60-89 Stage 3: Moderate kidney damage GFR 30-59 Stage 4: Severe kidney damage GFR 15-29 Stage 5: Severe kidney damage GFR <15 ESRD - chronic treatment by dialysis or transplant Vital Signs Date Time Vital Sign Value Performing Clinician Facility 09-15-2024 16:13-0500 Body temperature 97.2 [degF] [facility] DPM [facility] 09-15-2024 16:13-0500 Diastolic blood pressure 62 mm[Hg] Meera Mike DPM Work Phone: [facility] [employer] 09-15-2024 16:13-0500 Heart rate 87 /min Meera Mike DPM [facility] 09-15-2024 16:13-0500 Respiratory rate 16 /min Meera Mike DPM [facility] 09-15-2024 16:13-0500 SaO2% (BldA) [Mass fraction] 92 % Meera Mike DPM [facility] [employer] 09-15-2024 16:13-0500 Systolic blood pressure 127 mm[Hg] Meera Mike DPM [facility] 09-14-2024 06:26-0500 Body height 167.6 cm Meera Mike DPM [facility] 09-14-2024 06:26-0500 Body mass index (BMI) [Ratio] 34.72 kg/m2 Meera Mike DPM [facility] 09-14-2024 06:26-0500 Body weight 97.52 kg Meera Mike DPM Work Phone: [facility] [employer] 09-07-2024 13:04-0500 Body height 167.6 cm Meera Mike DPM [facility] Phone[facility] 09-07-2024 13:04-0500 Body mass index (BMI) [Ratio] 34.7 kg/m2 Meera Rashid DPM Work Phone[facility] 09-07-2024 13:04-0500 Body temperature 99.61 [degF] Meera Mike DPM [facility] [employer] 09-07-2024 13:04-0500 Body weight 97.52 kg Meera Rashid DPM [facility] Phone[facility] 09-07-2024 13:04-0500 Diastolic blood pressure 68 mm[Hg] Meenaeulogio Mike DPM Work Phone[facility] 09-07-2024 13:04-0500 Heart rate 94 /min Meera Mike DPM [facility] [employer] 09-07-2024 13:04-0500 Respiratory rate 18 /min Meera Mike DPM Work Phone[facility] 09-07-2024 13:04-0500 SaO2% (BldA) [Mass fraction] 96 % Meera Mike DPM Work Phone[facility] 09-07-2024 13:04-0500 Systolic blood pressure 112 mm[Hg] Meera Mike DPM [facility] Phone[facility] [employer] 07-26-2024 16:00-0400 Respiratory rate 14 /min Meenaeulogio Mike DPM Work Phone: [facility] [employer] 07-26-2024 07:07-0400 Body temperature 97.7 [degF] Meera Mike DPM Work Phone[facility] [employer] 07-26-2024 07:07-0400 Diastolic blood pressure 67 mm[Hg] Meera Mike DPM Work Phone[facility] 07-26-2024 07:07-0400 Heart rate 92 /min Meera Mike DPM Work Phone: [facility] [employer] 07-26-2024 07:07-0400 SaO2% (BldA) [Mass fraction] 91 % Meera Mike DPM Work Phone[facility] [employer] 07-26-2024 07:07-0400 Systolic blood pressure 121 mm[Hg] Meera Mike DPM Work Phone: [facility] [employer] 07-23-2024 12:23-0400 Body height 167.6 cm Meera Mike DPM Work Phone: [facility] [employer] 07-23-2024 12:23-0400 Body mass index (BMI) [Ratio] 34.4 kg/m2 Meera Mike DPM Work Phone: [facility] [employer] 07-23-2024 12:23-0400 Body weight 96.62 kg Meera Mike DPM Work Phone: [facility] [employer] 07-18-2024 14:54-0400 Body height 167.6 cm Stcz 3 [facility] [employer] 07-18-2024 14:54-0400 Body mass index (BMI) [Ratio] 34.38 kg/m2 Stcz 3 [facility] [employer] 07-18-2024 14:54-0400 Body temperature 97.7 [degF] Stcz 3 [facility] [employer] 07-18-2024 14:54-0400 Body weight 96.62 kg Stcz 3 [facility] [employer] 07-18-2024 14:54-0400 Diastolic blood pressure 59 mm[Hg] Stcz 3 [facility] [employer] 07-18-2024 14:54-0400 Heart rate 83 /min Stcz 3 [facility] [employer] 07-18-2024 14:54-0400 Respiratory rate 20 /min Stcz 3 [facility] [employer] 07-18-2024 14:54-0400 SaO2% (BldA) [Mass fraction] 93 % Stcz 3 [employer] 07-18-2024 14:54-0400 Systolic blood pressure 107 mm[Hg] Stcz 3 [facility] [employer] 07-14-2024 00:54-0400 SaO2% (BldA) [Mass fraction] 94 % Stacy Awan MD Work Phone: [facility] [employer] 07-13-2024 23:46-0400 Body temperature 98.01 [degF] Stacy Awan MD Work Phone: [facility] [employer] 07-13-2024 23:46-0400 Diastolic blood pressure 62 mm[Hg] Stacy Awan MD Work Phone: [facility] [employer] 07-13-2024 23:46-0400 Heart rate 92 /min Stacy Awan MD Work Phone: [facility] [employer] 07-13-2024 23:46-0400 Respiratory rate 16 /min Stacy Awan MD Work Phone: [facility] [employer] 07-13-2024 23:46-0400 Systolic blood pressure 149 mm[Hg] Stacy Awan MD Work Phone: [facility] [employer] 07-13-2024 20:26-0400 Diastolic blood pressure 101 mm[Hg] Karime Patel DO Work Phone: [facility] [facility] [employer] 07-13-2024 20:26-0400 SaO2% (BldA) [Mass fraction] 94 % Karime Patel DO Work Phone: [employer] 07-13-2024 20:26-0400 Systolic blood pressure 143 mm[Hg] Karime Patel DO Work Phone: [facility] [employer] 07-13-2024 13:43-0400 Body temperature 97.3 [degF] Karime Patel DO Work Phone: [facility] [employer] 07-13-2024 13:43-0400 Heart rate 97 /min Karime Patel DO Work Phone: [employer] [facility] 07-13-2024 13:43-0400 Respiratory rate 16 /min Karime Patel DO Work Phone: [facility] 06-16-2023 20:45-0400 Diastolic blood pressure 76 mm[Hg] Vivian Might SENIOR ARCHITECT/DESIGN MANAGER - HOME CARE MANAGER Work Phone: [facility] [employer] 06-16-2023 20:45-0400 Heart rate 88 /min Vivian Might SENIOR ARCHITECT/DESIGN MANAGER - HOME CARE MANAGER Work Phone: [facility] 06-16-2023 20:45-0400 Respiratory rate 16 /min Vivian Might SENIOR ARCHITECT/DESIGN MANAGER - HOME CARE MANAGER Work Phone: [facility] 06-16-2023 20:45-0400 SaO2% (BldA) [Mass fraction] 97 % Vivian Might SENIOR ARCHITECT/DESIGN MANAGER - HOME CARE MANAGER Work Phone: [facility] [employer] 06-16-2023 20:45-0400 Systolic blood pressure 128 mm[Hg] Vivian Might SENIOR ARCHITECT/DESIGN MANAGER - HOME CARE MANAGER Work Phone: [facility] [employer] 06-16-2023 17:32-0400 Body temperature 99 [degF] Vivian Might SENIOR ARCHITECT/DESIGN MANAGER - HOME CARE MANAGER Work Phone: [facility] 06-14-2023 11:31-0400 Respiratory rate 18 /min Emiliano Segundo MD [facility] [employer] 06-14-2023 07:34-0400 SaO2% (BldA) [Mass fraction] 95 % Emiliano Segundo MD [facility] [employer] 06-14-2023 06:45-0400 Body temperature 97.59 [degF] Emiliano Segundo MD [facility] [employer] 06-14-2023 06:45-0400 Diastolic blood pressure 77 mm[Hg] Emiliano Segundo MD [facility] [employer] 06-14-2023 06:45-0400 Heart rate 74 /min Emiliano Segundo MD [facility] [employer] 06-14-2023 06:45-0400 Systolic blood pressure 136 mm[Hg] Emiliano Segundo MD [facility] [employer] 09-19-2023 05:00-0400 Body mass index (BMI) [Ratio] 33.88 kg/m2 Emiliano Segundo MD [facility] [employer] 06-14-2023 05:00-0400 Body weight 95.21 kg Emiliano Segundo MD [facility] [employer] 06-13-2023 10:06-0400 Body height 167.6 cm Emiliano Segundo MD [facility] [employer] 01-19-2023 20:55-0400 Body height 167.6 cm [facility] 1 [facility] [employer] 01-19-2023 20:55-0400 Body mass index (BMI) [Ratio] 33.89 kg/m2 [facility] [employer] 01-19-2023 20:55-0400 Body weight 95.25 kg [facility] [employer] 12-08-2022 14:15-0400 Diastolic blood pressure 76 mm[Hg] Tari Curtis MD Work Phone: [facility] [employer] 12-08-2022 14:15-0400 Heart rate 88 /min Tari Curtis MD Work Phone: [facility] [employer] 12-08-2022 14:15-0400 Respiratory rate 16 /min Tari Curtis MD Work Phone: [facility] [employer] 12-08-2022 14:15-0400 SaO2% (BldA) [Mass fraction] 95 % Tari Curtis MD Work Phone: [facility] [employer] 12-08-2022 14:15-0400 Systolic blood pressure 135 mm[Hg] Tari Curtis MD Work Phone: [facility] [employer] 12-08-2022 13:48-0400 Body temperature 98.1 [degF] Tari Curtis MD Work Phone: [facility] [employer] 12-08-2022 12:16-0400 Body mass index (BMI) [Ratio] 33.99 kg/m2 Tari Curtis MD Work Phone: [facility] [employer] 12-08-2022 12:16-0400 Body weight 95.53 kg Tari Curtis MD Work Phone: [employer] 11-25-2022 16:01-0500 Body height 167.6 cm Tari Curtis MD Work Phone: [employer] 09-07-2022 12:20-0500 Body height 167.[address] Other [facility] [employer] Other 08-06-2022 18:00-0500 Body temperature 98.1 [degF] Vivian Might SENIOR ARCHITECT/DESIGN MANAGER - HOME CARE MANAGER Work Phone: [employer] 08-06-2022 18:00-0500 Diastolic blood pressure 51 mm[Hg] Vivian Might SENIOR ARCHITECT/DESIGN MANAGER - HOME CARE MANAGER Work Phone: [employer] 08-06-2022 18:00-0500 Heart rate 99 /min Vivian Might SENIOR ARCHITECT/DESIGN MANAGER - HOME CARE MANAGER Work Phone: [employer] 08-06-2022 18:00-0500 Respiratory rate 18 /min Vivian Might SENIOR ARCHITECT/DESIGN MANAGER - HOME CARE MANAGER Work Phone: [employer] 08-06-2022 18:00-0500 SaO2% (BldA) [Mass fraction] 94 % Vivian Might SENIOR ARCHITECT/DESIGN MANAGER - HOME CARE MANAGER Work Phone: [employer] 08-06-2022 18:00-0500 Systolic blood pressure 102 mm[Hg] Vivian Might SENIOR ARCHITECT/DESIGN MANAGER - HOME CARE MANAGER Work Phone: [employer] 08-06-2022 13:59-0500 Body height 167.6 cm Vivian Might SENIOR ARCHITECT/DESIGN MANAGER - HOME CARE MANAGER Work Phone: [employer] 08-06-2022 13:59-0500 Body mass index (BMI) [Ratio] 34.7 kg/m2 Vivian Might SENIOR ARCHITECT/DESIGN MANAGER - HOME CARE MANAGER Work Phone: [employer] 08-06-2022 13:59-0500 Body weight 97.52 kg Vivian Might SENIOR ARCHITECT/DESIGN MANAGER - HOME CARE MANAGER Work Phone: [employer] 01-20-2021 14:45-0400 Diastolic blood pressure 65 mm[Hg] [facility] [employer] Phone: 01-20-2021 14:45-0400 Heart rate 94 /min [facility] [employer] Phone: 01-20-2021 14:45-0400 Respiratory rate 14 /min [facility] [employer] Phone: 01-20-2021 14:45-0400 SaO2% (BldA) [Mass fraction] 95 % [facility] [employer] Phone: 01-20-2021 14:45-0400 Systolic blood pressure 123 mm[Hg] [facility] [employer] Phone: 01-20-2021 11:44-0400 Body height 167.6 cm [facility] [employer] Phone: 01-20-2021 11:44-0400 Body mass index (BMI) [Ratio] 30.67 kg/m2 [facility] [employer] Phone: 01-20-2021 11:44-0400 Body temperature 97.39 [degF] [facility] [employer] Phone: 01-20-2021 11:44-0400 Body weight 86.18 kg [facility] [employer] Phone: Encounters Encounter Date Encounter Type Care Provider Facility Start: 01-29-2025 End: 01-29-2025 Subsequent hospital visit by physician Vineet Block PT [facility] Start: 01-29-2025 End: 01-29-2025 ambulatory Vivian GODINZE Facility: [facility] Start: 01-25-2025 End: 01-25-2025 ambulatory VIVIAN Brown [facility] Start: 01-25-2025 End: 01-25-2025 Subsequent hospital visit by physician Vivian Bullard CNP Work Phone: [facility] Start: 01-24-2025 End: 01-24-2025 Subsequent hospital visit by physician Alanna Chappell PTA [facility] Physical Therapy Start: 01-24-2025 ambulatory VIVIAN W MIGHT Janette Meng [facility] Start: 01-22-2025 End: 01-22-2025 Subsequent hospital visit by physician Hussein Rich PTA [facility] Physical Therapy Start: 01-17-2025 End: 01-17-2025 ambulatory [facility] Start: 01-17-2025 End: 01-17-2025 Subsequent hospital visit by physician Makayla Lozoya PTA [facility] Physical Therapy Comment on above: Arrived Start: 01-14-2025 End: 01-14-2025 Subsequent hospital visit by physician Makayla Lozoya PTA [facility] Physical Therapy Start: 01-10-2025 End: 01-10-2025 ambulatory VIVIAN W MIGHT [facility] Start: 01-10-2025 End: 01-10-2025 Subsequent hospital visit by physician Hussein Rich PTA [facility] Physical Therapy Comment on above: Arrived Start: 01-08-2025 End: 01-08-2025 ambulatory VIVIAN W MIGHT [facility] Start: 01-08-2025 End: 01-08-2025 Subsequent hospital visit by physician Hussein Rich PTA [facility] Physical Therapy Comment on above: Arrived Start: 01-03-2025 End: 01-03-2025 ambulatory MEERA MIKE [facility] Start: 01-02-2025 End: 01-02-2025 ambulatory VIVIAN W MIGHT [facility] Start: 01-02-2025 End: 01-02-2025 Subsequent hospital visit by physician Phu Mora [facility] Physical Therapy Comment on above: Arrived Start: 12-31-2024 End: 12-31-2024 ambulatory VIVIAN W MIGHT [facility] Start: 12-31-2024 End: 12-31-2024 Subsequent hospital visit by physician Alanna Chappell PTA [facility] Physical Therapy Comment on above: Arrived Start: 12-26-2024 End: 12-26-2024 ambulatory VIVIAN W MIGHT [facility] Start: 12-26-2024 End: 12-26-2024 Subsequent hospital visit by physician Phu Mora [facility] Physical Therapy Comment on above: Arrived Start: 12-24-2024 End: 12-24-2024 ambulatory [facility]IV[facility] W MIGHT [facility] Start: 12-24-2024 End: 12-24-2024 Subsequent hospital visit by physician Alanna Chappell PTA [facility] Physical Therapy Comment on above: Arrived Start: 12-19-2024 End: 12-19-2024 ambulatory VIVIAN W MIGHT [facility] Start: 12-19-2024 End: 12-19-2024 Subsequent hospital visit by physician Hussein Rich PTA [facility] Physical Therapy Comment on above: Arrived Start: 12-17-2024 End: 12-17-2024 Subsequent hospital visit by physician Alanna Chappell PTA [facility] Physical Therapy Start: 12-12-2024 End: 12-12-2024 ambulatory VIVIAN W MIGHT [facility] Start: 12-12-2024 End: 12-12-2024 Subsequent hospital visit by physician Phu Mora [facility] Physical Therapy Comment on above: Arrived Start: 12-10-2024 End: 12-10-2024 ambulatory VIVIAN W MIGHT [facility] Start: 12-10-2024 End: 12-10-2024 Subsequent hospital visit by physician Disha Escamilla PTA [facility] Physical Therapy Comment on above: Arrived Start: 12-05-2024 End: 12-05-2024 ambulatory VIVIAN W MIGHT [facility] Start: 12-05-2024 End: 12-05-2024 Subsequent hospital visit by physician Makayla Lozoya PTA [facility] Physical Therapy Comment on above: Arrived Start: 12-03-2024 End: 12-03-2024 ambulatory VIVIAN W MIGHT [facility] Start: 12-03-2024 End: 12-03-2024 Subsequent hospital visit by physician Makayla Lozoya PTA [facility] Physical Therapy Comment on above: Arrived Start: 11-29-2024 End: 11-29-2024 Subsequent hospital visit by physician Alanna Chappell PTA [facility] Physical Therapy Start: 11-27-2024 End: 11-27-2024 ambulatory MEERA NICOLEINSON [facility] Start: 11-27-2024 End: 11-27-2024 Subsequent hospital visit by physician Vineet Matos PT [facility] Physical Therapy Comment on above: Arrived Start: 11-22-2024 End: 11-22-2024 ambulatory [facility] Start: 11-22-2024 ambulatory VIVIAN W [facility] Start: 10-25-2024 End: 10-25-2024 [facility] Start: 10-23-2024 End: 10-23-2024 ambulatory Vivian Mao Canelo LOAIZA-HOME CARE MANAGER Facility: [facility] Start: 10-11-2024 End: 10-11-2024 ambulatory VIVIAN OSEGUERA [facility] Start: 10-11-2024 End: 10-11-2024 Subsequent hospital visit by physician Vivian Oseguera APRN - HOME CARE MANAGER Work Phone: [facility] Laboratory Start: 10-11-2024 End: 10-11-2024 [facility] Start: 09-27-2024 End: 09-27-2024 [facility] Start: 09-14-2024 End: 09-15-2024 [facility] Start: 09-14-2024 End: 09-15-2024 Subsequent hospital visit by physician Meera Mike DPM Work Phone: [facility] Med Surg Comment on above: Post-op pain (Primar y Dx); Charcot ankle, left; Diabetes (HCC) Start: 09-07-2024 End: 09-11-2024 [facility] Start: 09-07-2024 End: 09-11-2024 Subsequent hospital visit by physician Meera Mike DPM Work Phone: [facility] Pre-Admit Testing Start: 08-31-2024 End: 09-02-2024 [facility] Start: 08-31-2024 End: 09-02-2024 Subsequent hospital visit by physician Sara [facility] Scan Room [facility] CT Scan Comment on above: Closed dislocation o f tarsal joint of left foot, initial encounter; Charcot's joint of foot, left; 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 Start: 07-18-2024 End: 07-22-2024 Subsequent hospital visit by physician Kaushik Rosas 3 [facility] Pre-Admit Testing Start: 07-17-2024 End: 07-17-2024 ambulatory MEERA MIKE [facility] Start: 07-13-2024 End: 07-14-2024 Emergency department patient visit Stacy Awan MD Work Phone: [facility] ED Comment on above: Lisfranc dislocation , left, initial encounter (Primary Dx) Start: 07-13-2024 End: 07-13-2024 Emergency department patient visit Karime Patel DO Work Phone: [facility] ED Comment on above: Lisfranc dislocation , left, initial encounter (Primary Dx); Closed nondisplaced fracture of metatarsal bone of left foot, unspecified metatarsal, initial encounter Start: 07-02-2024 End: 07-04-2024 ambulatory VIVIANLORETO [facility]GUERA [facility] Start: 07-02-2024 End: 07-04-2024 Subsequent hospital visit by physician [facility] Cat Scan Room [facility] Laboratory Comment on above: Recurrent pansinusit is Recurrent pansinusit is; Recurrent sinusitis Start: 06-12-2024 End: 06-12-2024 ambulatory Vivian Oseguera APRN-HOME CARE MANAGER Facility: [facility] Start: 06-11-2024 End: 06-11-2024 ambulatory Vivian Oseguera APRN-HOME CARE MANAGER Facility:[facility] Start: 06-08-2024 End: 06-08-2024 ambulatory VIVIAN W MIGHT [facility] Start: 06-08-2024 End: 06-08-2024 Subsequent hospital visit by physician Vivian Bullard CNP Work Phone: [facility] Laboratory Start: 05-22-2024 End: 05-22-2024 ambulatory VIVIAN W MIGHT [facility] Start: 05-22-2024 End: 05-22-2024 Subsequent hospital visit by physician Dread Sunshine [facility] Physical Therapy Comment on above: Arrived Start: 05-17-2024 End: 05-17-2024 ambulatory VIVIAN W MIGHT [facility] Start: 05-14-2024 End: 05-14-2024 ambulatory VIVIAN W MIGHT [facility] Start: 05-10-2024 End: 05-10-2024 ambulatory VIVIAN W MIGHT [facility] Start: 05-08-2024 End: 05-08-2024 ambulatory VIVIAN W MIGHT [facility] Start: 05-08-2024 End: 05-08-2024 ambulatory VIVIAN W MIGHT [facility] Start: 05-01-2024 End: 05-01-2024 ambulatory VIVIAN W MIGHT [facility] Start: 04-25-2024 End: 04-25-2024 ambulatory VIVIAN W MIGHT [facility] Start: 04-23-2024 End: 04-23-2024 ambulatory VIVIAN W MIGHT [facility] Start: 04-23-2024 End: 04-23-2024 Subsequent hospital visit by physician Phu Mora [facility] Physical Therapy Comment on above: Arrived Start: 04-16-2024 End: 04-16-2024 ambulatory VIVIAN W MIGHT [facility] Start: 04-12-2024 End: 04-12-2024 Subsequent hospital visit by physician Génesis Hickman PTA [facility] Physical Therapy Start: 04-12-2024 End: 04-12-2024 ambulatory VIVIAN W MIGHT [facility] Start: 04-11-2024 End: 04-11-2024 ambulatory VIVIAN W MIGHT [facility] Start: 03-30-2024 End: 03-30-2024 ambulatory VIVIAN W MIGHT [facility] Start: 03-23-2024 End: 03-23-2024 ambulatory VIVIAN W MIGHT [facility] Start: 03-08-2024 End: 03-08-2024 ambulatory VIVIAN W MIGHT [facility] Start: 03-06-2024 End: 03-06-2024 ambulatory Rolan Sim APRN-HOME CARE MANAGER Facility: [facility] Start: 03-05-2024 End: 03-05-2024 ambulatory VIVIAN W MIGHT [facility] Start: 03-01-2024 End: 03-01-2024 Subsequent hospital visit by physician Lary Rea PTA [facility] Physical Therapy Start: 2024 End: 2024 ambulatory VIVIAN W MIGHT [facility] Start: 02-16-2024 End: 02-16-2024 ambulatory VIVIAN Lauryn MIGHT [facility] Start: 02-16-2024 End: 02-16-2024 Subsequent hospital visit by physician Dread Sunshine PTA [facility] Physical Therapy Comment on above: Arrived Start: 02-08-2024 End: 02-08-2024 ambulatory [facility]IVIAN [facility] Start: 02-06-2024 End: 02-06-2024 ambulatory VIVIAN W MIGHT [facility] Start: 01-16-2024 End: 01-16-2024 Subsequent hospital visit by physician Disha Escamilla PTA [facility] Physical Therapy Start: 12-07-2023 End: 12-09-2023 Subsequent hospital visit by physician Sara [facility] Radiology Comment on above: Lower leg edema Start: 06-16-2023 End: 06-16-2023 Emergency department patient visit Vivian Oseguera JOSSE Bullard CNP Work Phone: [facility] ED Comment on above: Syncope, unspecified syncope type (Primary Dx) Start: 06-10-2023 End: 06-14-2023 Evaluation and management of inpatient Emiliano Segundo MD [facility] Comment on above: Recurrent syncope (P rimary Dx); Pneumonia of both lower lobes due to infectious organism Start: 02-25-2023 ambulatory NARENDRANATH LAKSHMIPATHY . Facility: Start: 02-08-2023 End: 02-08-2023 ambulatory NARENDRANATH LAKSHMIPATHY . Facility: Start: 01-27-2023 End: 01-28-2023 ambulatory NARENDRANATH LAKSHMIPATHY . Facility: Start: 01-19-2023 End: 01-19-2023 Subsequent hospital visit by physician [facility] Sleep 1 [facility] Sleep Center Comment on above: LAYNE (obstructive sle ep apnea) Start: 01-11-2023 End: 01-11-2023 ambulatory NARENDRANATH LAKSHMIPATHY . Facility: Start: 12-30-2022 End: 12-31-2022 ambulatory NARENDRANATH LAKSHMIPATHY . Facility: Start: 12-28-2022 End: 12-30-2022 Subsequent hospital visit by physician [facility] Mri Scanner [facility] MRI Comment on above: Thoracic neuritis Start: 12-08-2022 End: 12-08-2022 Subsequent hospital visit by physician Tari Curtis MD Work Phone: [facility] OR Comment on above: Screening for colon cancer Start: 11-30-2022 End: 12-01-2022 ambulatory NARENDRANATH LAKSHMIPATHY . Facility: Start: 11-23-2022 End: 11-23-2022 [facility] [address] [facility] Comment on above: Tired; Fatigue, unspecified type; LAYNE (obstructive sleep apnea) Start: 11-17-2022 End: 11-19-2022 Subsequent hospital visit by physician [facility] Mri Scanner [facility] MRI Comment on above: Lumbar radiculitis Start: 10-21-2022 End: 10-22-[address] DOCTOR URIBE Facility: Start: 10-08-2022 End: 10-08-2022 Patient encounter status [facility] EKG Start: 10-08-2022 End: 10-08-2022 Subsequent hospital visit by physician [facility] Automation Controls Engineer [facility] EKG Comment on above: Syncope and collapse ; Preop cardiovascular exam; Dizziness; Primary hypertension; Mixed hyperlipidemia; Tobacco abuse counseling Start: 10-04-2022 Admission to same da y surgery [facility] Start: 10-04-2022 End: 10-04-2022 ambulatory NON STAFF Facility:[facility] Start: 10-01-2022 End: 10-01-2022 Subsequent hospital visit by physician [facility] Comment on above: Canceled (Other) Start: 09-30-2022 End: 09-30-2022 ambulatory NON STAFF Facility:[facility] Start: 09-30-2022 End: 09-30-2022 ambulatory NON STAFF [facility] Work Phone: Start: 09-30-2022 End: 09-30-2022 Patient encounter procedure [facility] Zxx-Vlm-Tobkcghy Testing Work Phone: Start: 09-29-2022 End: 09-29-2022 Subsequent hospital visit by physician [facility] Tilt [facility] Comment on above: Postural syncope Start: 09-21-2022 End: 09-21-2022 ambulatory NON STAFF Facility:[facility] Start: 09-21-2022 End: 09-21-2022 ambulatory NON STAFF [facility] Work Phone: Start: 09-21-2022 End: 09-21-2022 Patient encounter procedure [facility] Llw-Jdq-Yjmmrdle Testing Work Phone: Start: 09-21-2022 End: 09-21-2022 Subsequent hospital visit by physician Vivian Bullard CNP Work Phone: [facility] Laboratory Comment on above: Controlled type 2 di abetes mellitus with diabetic polyneuropathy, with long-term current use of insulin (HCC) Start: 09-14-2022 End: 09-14-[address] DOCTOR URIBE Facility:[facility] Start: 09-10-2022 End: 09-10-2022 [facility] Comment on above: Arrived Start: 09-07-2022 Office outpatient vi sit 40 minutes Shiraz Sherman [facility] Neurosurgery Start: 09-07-2022 End: 09-07-[address] DOCTOR URIBE [facility] [employer] Other Start: 09-03-2022 End: 09-03-2022 Subsequent [facility] Covid Screening Comment on above: Arrived Start: 08-26-2022 End: 08-27-[address] DOCTOR URIBE Facility:[facility] Start: 08-10-2022 End: 08-10-[address] COREY [place] . Facility:[facility] Start: 08-06-2022 End: 08-06-2022 Subsequent hospital visit by physician Vineet Matos PT [facility] Physical Therapy Start: 08-06-2022 End: 08-06-2022 Emergency department patient visit Vivian Bullard CNP Work Phone: [facility] ED Comment on above: Rib pain on left erik e (Primary Dx) Start: 08-04-2022 End: 08-06-2022 Subsequent hospital visit by physician [facility] Ultrasound Room [facility] Ultrasound Comment on above: Colon cancer screeni ng; Fatty liver Start: 08-02-2022 End: 08-02-2022 Subsequent hospital visit by physician Vineet Matos PT [facility] Physical Therapy Start: 07-29-2022 End: 07-30-[address] COREY [place] . Facility:[facility]1 Start: 07-23-2022 End: 07-23-2022 Subsequent hospital visit by physician Vineet Matos PT [facility] Physical Therapy Start: 07-19-2022 End: 07-19-2022 Subsequent hospital visit by physician Mulu Mccray PTA [facility] Laboratory Comment on above: Colon cancer screeni ng; Fatty liver Arrived Start: 07-16-2022 End: 07-16-2022 Subsequent hospital visit by physician Vineet Matos PT [facility] Physical Therapy Comment on above: Arrived Start: 07-13-2022 End: 07-13-2022 Subsequent hospital visit by physician Mulu Mccray PTA [facility] Physical Therapy Comment on above: Arrived Start: 07-12-2022 End: 07-12-2022 Subsequent hospital visit by physician Mulu Mccray PTA [facility] Physical Therapy Comment on above: Arrived Start: 07-08-2022 End: 07-08-2022 Subsequent hospital visit by physician Vineet Matos PT [facility] Physical Therapy Comment on above: Arrived Start: 07-07-2022 End: 07-07-2022 Subsequent hospital visit by physician Karrie Beltran [employer] [facility] Physical Therapy Comment on above: Arrived Start: 07-05-2022 End: 07-05-2022 Subsequent hospital visit by physician Karrie Beltran [facility] Physical Therapy Comment on above: Arrived Start: 07-02-2022 End: 07-02-2022 Subsequent hospital visit by physician Vineet Matos PT [facility] Physical Therapy Comment on above: Arrived Start: 06-30-2022 End: 06-30-2022 Subsequent hospital visit by physician Karrie Beltran [employer] [facility] Physical Therapy Comment on above: Arrived Start: 06-28-2022 End: 06-28-2022 Subsequent hospital visit by physician Karrie Beltran PTA [facility] Physical Therapy Comment on above: Arrived Start: 06-24-2022 End: 06-24-2022 Subsequent hospital visit by physician Vineet Matos PT [facility] Physical Therapy Comment on above: Arrived Start: 06-18-2022 End: 06-18-2022 Subsequent hospital visit by physician Karrie Beltran [employer] [facility] Physical Therapy Comment on above: Arrived Start: 06-16-2022 End: 06-16-2022 Subsequent hospital visit by physician Karrie Beltran [employer] [facility] Physical Therapy Comment on above: Arrived Start: 06-14-2022 End: 06-14-2022 Subsequent hospital visit by physician Karrie Beltran [employer] [facility] Physical Therapy Comment on above: Arrived Start: 06-11-2022 End: 06-11-2022 Subsequent hospital visit by physician Vineet Matos PT [facility] Physical Therapy Comment on above: Arrived Start: 06-07-2022 End: 06-07-2022 Subsequent hospital visit by physician Karrie Beltran PTA [facility] Physical Therapy Start: 06-02-2022 End: 06-02-2022 Subsequent hospital visit by physician Karrie Beltran PTA [facility] Physical Therapy Start: 05-28-2022 End: 05-28-2022 Subsequent hospital visit by physician Vineet Matos PT [facility] Physical Therapy Comment on above: Arrived Start: 05-27-2022 End: 05-27-2022 Subsequent hospital visit by physician Vineet Matos PT [facility] Physical Therapy Comment on above: Arrived Start: 05-25-2022 End: 05-25-2022 Subsequent hospital visit by physician Nathan Garcia PT [facility] Physical Therapy Comment on above: Arrived Start: 05-18-2022 End: 05-18-2022 Subsequent hospital visit by physician Vineet Matos PT [facility] Physical Therapy Comment on above: Arrived Start: 04-29-2022 End: 04-30-[address] COREY CLEVELAND . Facility:[facility]1 Start: 04-13-2022 End: 04-13-[address] COREY CLEVELAND . Facility:[facility] Start: 04-09-2022 End: 04-09-2022 Subsequent hospital visit by physician [facility] Covid Screening Schedule [facility] Covid Screening Comment on above: Arrived Start: 04-01-2022 End: 04-02-2022 ambulatory KEILY CLEMENTS . Facility:[facility] Start: 03-31-2022 End: 04-02-2022 Subsequent hospital visit by physician [facility] Vascular Imaging Room [facility] Vascular Lab Comment on above: Intermittent claudic ation (HCC) Start: 03-02-2022 End: 03-02-2022 ambulatory NON STAFF Facility:[facility] Start: 11-26-2021 End: 11-26-2021 [facility] Covid Screening Comment on above: Arrived Start: 05-15-2021 End: 05-17-2021 Subsequent hospital visit by physician [facility] Mammography [facility] Mammography Comment on above: Other screening mamm ogram Start: 04-14-2021 ambulatory VIVIAN OSEGUERA [facility] Start: 03-11-2021 End: 03-11-2021 Subsequent hospital visit by physician Vivian Oseguera APRN - [place] Work Phone: [facility] Laboratory Comment on above: Abnormal LFTs Start: 03-04-2021 End: 03-04-2021 Subsequent hospital visit by physician [facility] Cardiology Stress Room [facility] Stress Lab Comment on above: Arrived Start: 03-03-2021 End: 03-03-2021 Subsequent hospital visit by physician [facility] Echo Room [facility] Echocardiography Comment on above: Essential hypertensi on; Chest discomfort; Hyperlipidemia, unspecified hyperlipidemia type; Tobacco abuse Arrived Start: 02-09-2021 End: 02-09-2021 Subsequent hospital visit by physician Vivian Oseguera APRN - [place] Work Phone: [facility] Laboratory Comment on above: Hepatomegaly Start: 01-28-2021 End: 01-28-2021 Subsequent hospital visit by physician Vivian Oseguera SENIOR ARCHITECT/DESIGN MANAGER - HOME CARE MANAGER Work Phone: [facility] Comment on above: Renal stones; Renal colic Start: 01-27-2021 End: 01-29-2021 Subsequent hospital visit by physician Sara Martini Dr Room 2 [facility] Radiology Comment on above: Renal stones Start: 01-20-2021 End: 01-22-2021 Subsequent hospital visit by physician Sara Cat Scan Room [facility] CT Scan Comment on above: DDD (degenerative di sc disease), lumbar Start: 09-30-2020 End: 09-30-2020 Subsequent hospital visit by physician Torri Covid [facility] Comment on above: Preoperative testing Start: 08-13-2020 End: 08-13-2020 Subsequent hospital visit by physician Vivian [facility] Laboratory Start: 07-25-2020 End: 07-27-2020 Subsequent hospital visit by physician Sara Cat Scan Room [facility] CT Scan Comment on above: Traumatic injury of head, initial encounter; Scalp tenderness Start: 07-08-2020 End: 07-08-2020 Subsequent hospital visit by physician Torri [facility] Comment on above: Arrived Start: 01-25-2020 End: 01-27-2020 Subsequent hospital visit by physician Sara Martini Dr Room 4 [facility] Radiology Comment on above: Renal stones Start: 12-28-2019 End: 12-28-2019 Subsequent hospital visit by physician Vivian [facility] Laboratory Start: 10-18-2019 End: 10-20-2019 Subsequent hospital visit by physician Vivian Oseguera APRN - HOME CARE MANAGER Work Phone: [facility] Comment on above: Right upper quadrant abdominal pain Start: 10-03-2019 End: 10-03-2019 Subsequent hospital visit by physician Vivian Oseguera APRN - HOME CARE MANAGER Work Phone[facility] E[facility] Start: 08-22-2019 End: 08-24-2019 Subsequent hospital visit by physician Sara Nuclear Room [facility] Nuclear Medicine Comment on above: Arrived Generalized abdomina l pain Start: 08-16-2019 End: 08-18-2019 Subsequent hospital visit by physician Sara Nuclear Room [facility] Nuclear Medicine Comment on above: Generalized abdomina l pain Start: 08-03-2019 End: 08-05-2019 Subsequent hospital visit by physician Sara Ultrasound Room 2 [facility] Ultrasound Comment on above: Thyromegaly Start: 07-30-2019 End: 08-01-2019 Subsequent hospital visit by physician Sara Cat Scan Room [facility] CT Scan Comment on above: Abdominal [...] ty pe 2 with complications, uncontrolled (HCC) Procedures Date Procedure Procedure Detail Performing Clinician Start: 01-25-2025 Hemoglobin glycosyla priya a1c Rolan Sim Work Phone: Start: 09-15-2024 Glucose blood reagen t strip Meenaase A Mike DPM Work Phone: Start: 09-15-2024 Glucose blood reagen t strip Meenaase A Mike DPM Work Phone: Start: 09-15-2024 Blood count complete auto&auto difrntl wbc Urbano Merino DPM Work Phone: Start: 09-15-2024 Glucose blood reagen t strip Khase A Mike DPM Work Phone: Start: 09-14-2024 Glucose blood reagen t strip Meenaase A Mike DPM Work Phone: Start: 09-14-2024 Glucose blood reagen t strip Meenaase A Mike DPM Work Phone: Start: 09-14-2024 Radiologic examinati on tibia & fibula 2 views Urbano Merino DPM Work Phone: Start: 09-14-2024 Fluoroscopy during operation Meera Mike DPM Work Phone: Start: 09-14-2024 End: 09-14-2024 Arthrodesis subtalar Meera Mike D PM Work Phone: Start: 09-14-2024 End: 09-14-2024 Removal external fixation system under anes Meenaase A Mike DPM Work Phone: Start: 09-14-2024 End: 09-14-2024 Glucose blood reagent strip Meeanase A Mike DPM Work Phone: Start: 09-07-2024 Basic metabolic pane l calcium total Valerie Mg MD Work Phone: Start: 07-26-2024 Glucose blood reagen t strip Khase A Mike DPM Work Phone: Start: 07-26-2024 Creatine kinase total L ucas S Gus DPM Work Phone: Start: 07-26-2024 TROP/MYOGLOBIN Sreekanth S Gus DPM Work Phone: Start: 07-26-2024 Glucose blood reagen t strip Khase A Mike DPM Work Phone: Start: 07-26-2024 Glucose blood reagen t strip Khase A Mike DPM Work Phone: Start: 07-26-2024 Glucose blood reagen t strip Khase A Mike DPM Work Phone: Start: 07-26-2024 C-reactive protein Phani s S Weber DPM Work Phone: Start: 07-25-2024 Glucose blood reagen t strip Khase A Mike DPM Work Phone: Start: 07-25-2024 Glucose blood reagen t strip Khase A Mike DPM Work Phone: Start: 07-25-2024 Glucose blood reagen t strip Khase A Mike DPM Work Phone: Start: 07-25-2024 Comprehensive metabo lic panel Helen Cleveland MD Work Phone: Start: 07-25-2024 Glucose blood reagen t strip Khase A Mike DPM Work Phone: Start: 07-24-2024 Glucose blood reagen t strip Khase A Mike DPM Work Phone: Start: 07-24-2024 Glucose blood reagen t strip Khase A Mike DPM Work Phone: Start: 07-24-2024 Glucose blood reagen t strip Khase A Mike DPM Work Phone: Start: 07-24-2024 Hemoglobin glycosyla priya a1c Sreekanth Weber DPM Work Phone: Start: 07-24-2024 Glucose blood reagen t strip Khase A Mike DPM Work Phone: Start: 07-23-2024 Glucose blood reagen t strip Khase A Mike DPM Work Phone: Start: 07-23-2024 End: 07-23-2024 Radiologic examination tibia & fibula 2 views Sreekanth Weber DPM Work Phone: Start: 07-23-2024 Glucose blood reagen t strip Khase A Mike DPM Work Phone: Start: 07-23-2024 Fluoroscopy during operation Khase A Mike DPM Work Phone: Start: 07-23-2024 End: 07-23-2024 Application uniplane external fixation system Meenaase A Mike DPM Work Phone: Start: 07-23-2024 End: 07-23-2024 Prq skel fixj metar fx w/manj Meenaase A Mike DPM Work Phone: Start: 07-23-2024 End: 07-23-2024 Potassium serum plasma/whole blood Zulema Chapa SENIOR ARCHITECT/DESIGN MANAGER - HOME CARE MANAGER Work Phone: Start: 07-18-2024 Basic metabolic pane l calcium total Phil Pamela Herrera MD Work Phone: Start: 07-14-2024 Radex foot complete minimum 3 views Zora Martinez DPM Work Phone: Start: 07-13-2024 GLUCOSE, WHOLE BLOOD Ja veria J Patel DO Work Phone: Start: 07-13-2024 Ct lower extremity w /o contrast material Karime J Patel DO Work Phone: Start: 07-13-2024 Radex foot complete minimum 3 views Karime J Patel DO Work Phone: Start: 07-02-2024 Basic metabolic pane l calcium total Vivian W Might SENIOR ARCHITECT/DESIGN MANAGER - HOME CARE MANAGER Work Phone: Start: 07-02-2024 Ct maxillofacial w/o contrast material Vivian W Might SENIOR ARCHITECT/DESIGN MANAGER - HOME CARE MANAGER Work Phone: Start: 06-08-2024 Assay of thyroid stimulating hormone tsh Rolan Sim Work Phone: Start: 12-07-2023 Radiologic exam ches t 2 views Vivian W Might SENIOR ARCHITECT/DESIGN MANAGER - HOME CARE MANAGER Work Phone: Start: 06-16-2023 Ct head/brain w/o [...] Mri spinal canal tho racic w/o contrast cheryll Barbara Mcghee MD Work Phone: Start: 12-08-2022 GLUCOSE, WHOLE BLOOD Vi naresh Curtis MD Work Phone: Start: 12-08-2022 End: 12-08-2022 Colonoscopy Tari Curtis MD Work Phone: Start: 11-17-2022 Mri spinal canal lum bar w/o contrast material Keily Celments SENIOR ARCHITECT/DESIGN MANAGER - [employer] Work Phone: Start: 09-30-2022 SARS Antigen (LFIA) Start: 09-29-2022 NM TILT TABLE TEST Albert t W Might SENIOR ARCHITECT/DESIGN MANAGER - HOME CARE MANAGER Work Phone: Start: 09-21-2022 Urine albumin quantitative Vivian W Might SENIOR ARCHITECT/DESIGN MANAGER - HOME CARE MANAGER Work Phone: Start: 09-21-2022 Lipid panel Vivian W Mi ght SENIOR ARCHITECT/DESIGN MANAGER - HOME CARE MANAGER Work Phone: Start: 09-21-2022 End: 09-21-2022 Basic metabolic panel calcium total Vivian W Might SENIOR ARCHITECT/DESIGN MANAGER - HOME CARE MANAGER Work Phone: Start: 08-06-2022 Assay of troponin [...] physiol ogic study extremity 3 levls Vivian Combs [employer] Work Phone: Start: 05-15-2021 Screening mammograph y bi 2-view breast inc cad Vivian Oseguera SENIOR ARCHITECT/DESIGN MANAGER [employer] Work Phone: Start: 03-11-2021 Comprehensive metabo lic panel Claudia Willett SENIOR ARCHITECT/DESIGN MANAGER [employer] Work Phone: Start: 03-11-2021 Hepatitis b core ant ibody hbcab total Claudia Willett SENIOR ARCHITECT/DESIGN MANAGER [employer] Work Phone: Start: 03-11-2021 Iaad ia hepatitis b surface antigen Claudia Willett SENIOR ARCHITECT/DESIGN MANAGER [employer] Work Phone: Start: 02-09-2021 Hepatic function panel Vivian Combs [employer] Work Phone: Start: 01-28-2021 Urnls dip stick/tabl et reagent auto microscopy Meghan León SENIOR ARCHITECT/DESIGN MANAGER - [employer] Work Phone: Start: 01-27-2021 Radiologic exam abdo men 1 view Meghan León SENIOR ARCHITECT/DESIGN MANAGER - [employer] Work Phone: Start: 01-20-2021 Ct lumbar spine w/co ntrast material Corey Cleveland MD Work Phone: Start: 08-13-2020 Lipid panel Rolan Sim Work Phone: Start: 07-25-2020 Ct head/brain w/o co ntrast material Vivian Oseguera Work Phone: Start: 01-25-2020 Radiologic exam abdo men 1 view Meghan León Work Phone: Start: 12-28-2019 Assay of free thyroxine Mario Alberto Cheo Zimmerman Work Phone: Start: 12-28-2019 Assay of [...] real ti me w/image limited Flip Srinivasan [employer] Work Phone: Start: 10-18-2019 Basic metabolic pane l calcium total Flip Dodson [employer] Work Phone: Start: 10-03-2019 Ecg routine ecg w/le ast 12 lds w/i&r Corey Cleveland MD Work Phone: Start: 10-03-2019 EKG REPORT Hpf Scanni ng Start: 08-22-2019 Gastric emptying haily ging study Vivian Combs [employer] Work Phone: Start: 08-03-2019 Us soft tissue head & neck real time imge billy Olivera Work Phone: Start: 07-30-2019 Ct abdomen [...] cholesterol Vivian W Might Work Phone: Start: 06-02-2017 Microscopic observat ion [Identifier] in Cervix by Cyto stain Vineet Matos PT Plan of Treatment Date Care Activity Detail Author Start: 2038 Pneumococcal 0-64 years Vaccine (2 of 2 - PPSV23) Pneumococcal 0-64 years Vaccine (2 of 2 - PPSV23) [employer] Start: 2038 Pneumococcal 0-64 years Vaccine (2 of 2) Pneumococcal 0-64 years Vaccine (2 of 2) [employer] Work Phone: Start: 12-08-2032 Screening for malignant neoplasm of colon [employer] Start: 01-25-2026 Hemoglobin A1c measurement A1C test (Diabetic or Prediabetic) [facility] [employer] Start: 01-17-2026 Depression Monitoring Depression Monitoring [facility] Start: 12-08-2025 Screening for malignant neoplasm of colon [facility] [employer] Start: 11-28-2025 Depression Monitoring Depression Monitoring [facility] Start: 11-28-2025 DTaP/Tdap/Td vaccine (1 - Tdap) DTaP/Tdap/Td vaccine (1 - Tdap) [facility] [employer] Comment on above: Postponed from 02/29/1992 (Patient Refus ed) Start: 11-28-2025 Pneumococcal 50+ years Vaccine (2 of 2 - PCV) Pneumococcal 50+ years Vaccine (2 of 2 - PCV) [employer] Comment on above: Postponed from 05/10/2019 (Patient Refus ed) Start: 10-11-2025 Hemoglobin A1c measurement A1C test (Diabetic or Prediabetic) [employer] Start: 09-15-2025 GFR test (Diabetes, CKD 3-4, OR last GFR 15-59) GFR test (Diabetes, CKD 3-4, OR last GFR 15-59) [facility] [employer] Start: 09-07-2025 GFR test (Diabetes, CKD 3-4, OR last GFR 15-59) GFR test (Diabetes, CKD 3-4, OR last GFR 15-59) [employer] Start: 07-25-2025 GFR test (Diabetes, CKD 3-4, OR last GFR 15-59) GFR test (Diabetes, CKD 3-4, OR last GFR 15-59) [employer] Start: 07-24-2025 Hemoglobin A1c measurement A1C test (Diabetic or Prediabetic) [facility] [employer] Start: 07-18-2025 GFR test (Diabetes, CKD 3-4, OR last GFR 15-59) GFR test (Diabetes, CKD 3-4, OR last GFR 15-59) [employer] Start: 07-13-2025 Diabetic foot examination Diabetic foot exam [facility] [employer] Start: 07-02-2025 GFR test (Diabetes, CKD 3-4, OR last GFR 15-59) GFR test (Diabetes, CKD 3-4, OR last GFR 15-59) [employer] Start: 06-11-2025 COVID-19 Vaccine ( season) COVID-19 Vaccine ( season) [employer] Comment on above: Postponed from 05/27/2024 (Unavailable) Start: 06-11-2025 COVID-19 Vaccine ( season) COVID-19 Vaccine ( season) [employer] Comment on above: Postponed from 05/27/2024 (Unavailable) Start: 06-11-2025 Hepatitis B vaccine (1 of 3 - 19+ 3-dose series) Hepatitis B vaccine (1 of 3 - 19+ 3-dose series) [employer] Comment on above: Postponed from 02/29/1992 (Patient Refus ed) Start: 06-11-2025 HIV screening HIV screen [facility] Comment on above: Postponed from 02/29/1988 (Patient Refus ed) Start: 06-11-2025 Shingles vaccine (2 of 2) Shingles vaccine (2 of 2) [facility] Comment on above: Postponed from 05/20/2023 (Patient Refus ed) Start: 06-08-2025 Hemoglobin A1c measurement A1C test (Diabetic or Prediabetic) [facility] Start: 05-23-2025 End: 05-23-2025 Patient encounter procedure 05/23/2025 2:00 PM EDT Office Visit [facility] Part [address] [place] [address] Nathan Ardon MD [address] [place] [phone] 1 year follow up [facility] Comment on above: 1 year follow up Start: 05-17-2025 Depression Monitoring Depression Monitoring [facility] Start: 05-17-2025 Influenza vaccination [facility] Comment on above: Postponed from 04/26/2024 (Patient Refus ed) Postponed from 04/26 (Patient Refused) Start: 03-28-2025 Depression Monitoring Depression Monitoring [facility] Start: 03-28-2025 Diabetic foot examination Diabetic foot exam [facility] Start: 03-23-2025 GFR test (Diabetes, CKD 3-4, OR last GFR 15-59) GFR test (Diabetes, CKD 3-4, OR last GFR 15-59) [facility] Start: 03-23-2025 Hemoglobin A1c measurement A1C test (Diabetic or Prediabetic) [facility] Start: 03-23-2025 Lipid panel Lipids [facility] Start: 03-23-2025 Urine screening for protein Diabetic Alb to Cr ratio (uACR) test [facility] Start: 02-14-2025 End: 02-14-2025 Patient encounter procedure 02/14/2025 3:00 PM EDT Office Visit [facility] Pod[facility]ry [address] [place] [phone] Meera Mike, DPM [address] [phone] 6 WEEKS [facility] Podiatry Comment on above: 6 WEEKS Start: 01-29-2025 End: 01-29-2025 Patient encounter procedure 01/29/2025 10:45 AM EDT Appointment [facility] Physical Therapy [address] [place] [phone] Vineet Block, PT needs to schedule more. pre cert note in [facility] Physical Therapy Comment on above: needs to schedule more. pre cert note in Start: 01-24-2025 End: 01-24-2025 Patient encounter procedure 01/24/2025 12:45 PM EDT Appointment [facility] Physical Therapy [address] [place] [phone] Alanna Chappell PTA [facility] Physical Therapy Start: 01-22-2025 End: 01-22-2025 Patient encounter procedure 01/22/2025 11:30 AM EDT Appointment [facility] Physical Therapy [address] [place] [phone] Hussein Rich PTA [facility] Physical Therapy Start: 01-17-2025 End: 01-17-2025 Patient encounter procedure 01/17/2025 2:45 PM EDT Appointment [facility] Physical Therapy [address] [place] [phone] Makayla Lozoya PTA [facility] Physical Therapy Start: 01-14-2025 End: 01-14-2025 Patient encounter procedure 01/14/2025 12:15 PM EDT Appointment [facility] Physical Therapy [address] [place] [phone] Makayla Lozoya PTA [facility] Physical Therapy Start: 01-10-2025 End: 01-10-2025 Patient encounter procedure 01/10/2025 1:45 PM EDT Appointment [facility] Physical Therapy [address] [place] [phone] Hussein Rich PTA [facility] Physical Therapy Start: 01-08-2025 End: 01-08-2025 Patient encounter procedure 01/08/2025 2:30 PM EDT Appointment [facility] Physical Therapy [address] [place] [phone] Hussein Rich PTA upoc- vineet matos patient, blocked him for 15 minutes at 2:30. [facility] Physical Therapy Comment on above: upoc- vineet matos patient, blocked him f or 15 minutes at 2:30. Start: 01-03-2025 End: 01-03-2025 Patient encounter procedure 01/03/2025 3:30 PM EDT Office Visit [facility] [address] [facility] [address] [place] [address] Meera Mike, DPZarina [address] [facility] [address] [place] [address] 6 WEEKS [facility] Podiat[facility] Comment on above: 6 WEEKS Start: 01-02-2025 End: 01-02-2025 Patient encounter procedure [facility] Physical Therapy Comment on above: SADIQRAINER BAKER PT Start: 12-31-2024 End: 12-31-2024 Patient encounter procedure 12/31/2024 12:45 PM EDT Appointment [facility] Physical Therapy [address] [place] [phone] Alanna Chappell PTA [facility] Physical Therapy Start: 12-26-2024 End: 12-26-2024 Patient encounter procedure 12/26/2024 1:30 PM EDT Appointment [facility] Physical Therapy [address] [place] [phone] Phu Mora [facility] Physical Therapy Start: 12-24-2024 End: 12-24-2024 Patient encounter procedure 12/24/2024 12:45 PM EDT [facility] [address] [place] [phone] Alanna Chappell PTA [facility] Physical Therapy Start: 12-19-2024 End: 12-19-2024 Patient encounter procedure [facility] Physical Therapy Start: 12-17-2024 End: 12-17-2024 Patient encounter procedure 12/17/2024 12:45 PM EDT Appointment [facility] Physical Therapy [address] [place] [address] [phone] Alanna Chappell PTA [facility] Physical Therapy Start: 12-12-2024 End: 12-12-2024 Patient encounter procedure 12/12/2024 1:45 PM EDT Appointment [facility] Physical Therapy [address] [place] [phone] Phu Mora [facility] Physical Therapy Start: 12-10-2024 End: 12-10-2024 Patient encounter procedure 12/10/2024 1:30 PM EDT Appointment [facility] Physical Therapy [address] [place] [phone] Disha Escamilla PTA [facility] Physical Therapy Start: 12-06-2024 Depression Monitoring Depression Monitoring [facility] [employer] Start: 12-06-2024 GFR test (Diabetes, CKD 3-4, OR last GFR 15-59) GFR test (Diabetes, CKD 3-4, OR last GFR 15-59) [facility] Start: 12-05-2024 End: 12-05-2024 Patient encounter procedure 12/05/2024 2:30 PM EDT Appointment [facility] Physical Therapy [address] [place] [id number] Makayla Lozoya PTA [facility] Physical Therapy Start: 12-03-2024 End: 12-03-2024 Patient encounter procedure 12/03/2024 12:30 PM EDT Appointment [facility] Physical Therapy [address] [place] [phone] Makayla Lozoya PTA [facility] Physical Therapy Start: 11-29-2024 End: 11-29-2024 Patient encounter procedure 11/29/2024 11:15 AM EST Appointment [facility] Physical Therapy [address] [place] [phone] Alanna Chappell PTA [facility] Physical Therapy Start: 11-28-2024 End: 11-28-2024 Patient encounter procedure 11/28/2024 11:00 AM EST Office Visit [facility] [address] [place] [phone] Vivian Oseguera, JOSSE - GEORGES [address] [place] [address] sinus issues [facility] Comment on above: sinus issues Start: 11-21-2024 Hemoglobin A1c measurement A1C test (Diabetic or Prediabetic) [facility] Start: 10-25-2024 End: 10-25-2024 Patient encounter procedure 10/25/2024 9:45 AM EST Office Visit [facility] [address] [facility] [address] [place] [phone] Meera Mike DPM [address] [facility] [address] [place] [address] 3RD POST OP [facility] Comment on above: 3RD POST OP Start: 10-11-2024 End: 10-11-2024 Patient encounter procedure 10/11/2024 2:00 PM EST Office Visit [facility] [address] [phone] Meera Mike DPM [address] [address] 2ND POST OP [facility] Comment on above: 2ND POST OP Start: 10-01-2024 End: 10-01-2024 Patient encounter procedure 10/01/2024 2:00 PM EST Office Visit [facility] [address] [place] [phone] Vivian Oseguera, JOSSE - GEORGES [address] [place] [address] 6 month f/u [facility] Comment on above: 6 month f/u Start: 09-28-2024 DTaP/Tdap/Td vaccine (1 - Tdap) DTaP/Tdap/Td vaccine (1 - Tdap) [facility] Comment on above: Postponed from 02/29/1992 (Patient Refus ed) Start: 09-27-2024 End: 09-27-2024 Patient encounter procedure 09/27/2024 10:45 AM EST Office Visit [facility] [address] [phone] Meera Mike DPM [address] [place] [address] INITIAL POST OP [facility] Comment on above: INITIAL POST OP Start: 09-14-2024 End: 09-14-2024 Admission to same day surgery center 09/14/2024 8:00 AM EST - 09/14/2024 11:00 AM EST Surgery [facility] [address] [place] [address] Meera Mike DPM [address] [facility] [address] [place] [address] REMOVE EXTERNAL FIXATOR LEFT FOOT [facility] Comment on above: REMOVE EXTERNAL FIXATOR LEFT FOOT Start: 09-14-2024 End: 09-14-2024 Arthrodesis subtalar FOOT ARTHRODESIS Charcot ankle, left Diabetes (HCC) 09/14/2024 8:00 AM [facility] Start: 09-14-2024 End: 09-14-2024 Removal external fixation system under anes FOOT EXTERNAL FIXATOR REMOVAL Charcot ankle, left Diabetes (HCC) 09/14/2024 8:00 AM [facility] Start: 09-14-2024 Subsequent hospital visit by physician 09/14/2024 8:00 AM EST Hospital Encounter [facility] [address] [place] [address] Meera Mike DPM [address] [facility] [address] [place] [address] [facility] Start: 09-04-2024 End: 09-04-2024 Patient encounter procedure 09/04/2024 2:30 PM EST Office Visit [facility] [address] [facility] [address] [place] [phone] Meera Mike DPM [address] [place] [address] 2 WEEKS [facility] Comment on above: 2 WEEKS Start: 08-21-2024 End: 08-21-2024 Patient encounter procedure 08/21/2024 2:00 PM EST Office Visit [facility] [address] [place] [phone] Meera Mike, PRANAV [address] [facility] [place] [address] 3RD POST OP [facility] Comment on above: 3RD POST OP Start: 08-07-2024 End: 08-07-2024 Patient encounter procedure [facility] of [facility] Comment on above: Oropharyngeal dysphagia, referral 2ND POST OP Start: 08-03-2024 Lipid panel Lipids [facility] Start: 08-03-2024 Urine screening for protein Diabetic Alb to Cr ratio (uACR) test [facility] Start: 07-26-2024 End: 07-26-2024 Patient encounter procedure 07/26/2024 8:00 AM EDT Office Visit [facility] [address] [place] [phone] Meera Mike, PRANAV [address] [facility] [place] [address] INITIAL POST OP [facility] Comment on above: INITIAL POST OP Start: 07-23-2024 End: 07-23-2024 Application uniplane external fixation system ANKLE EXTERNAL FIXATOR APPLICATION Charcot ankle, left Closed dislocation of tarsal joint of left foot 07/23/2024 2:00 PM EDT [facility] Start: 07-23-2024 End: 07-23-2024 Prq skel fixj metar fx w/manj FOOT CLOSED REDUCTION PINNING Charcot ankle, left Closed dislocation of tarsal joint of left foot 07/23/2024 2:00 PM EDT [facility] Start: 07-01-2024 Glaucoma screening Diabetic retinal exam [facility] Comment on above: Postponed from 10/17/2020 (Not Indicated ) Start: 06-22-2024 Pneumococcal 0-64 years Vaccine (2 - PCV) Pneumococcal 0-64 years Vaccine (2 - PCV) [facility] Comment on above: Postponed from 05/10/2019 (Patient Refus ed) Start: 06-22-2024 Pneumococcal 0-64 years Vaccine (2 of 2 - PCV) Pneumococcal 0-64 years Vaccine (2 of 2 - PCV) [facility] Comment on above: Postponed from 05/10/2019 (Patient Refus ed) Start: 06-16-2024 GFR test (Diabetes, CKD 3-4, OR last GFR 15-59) GFR test (Diabetes, CKD 3-4, OR last GFR 15-59) [facility] Start: 06-14-2024 GFR test (Diabetes, CKD 3-4, OR last GFR 15-59) GFR test (Diabetes, CKD 3-4, OR last GFR 15-59) [facility] Start: 05-27-2024 COVID-19 Vaccine (#1) COVID-19 Vaccine (#1) [facility] Comment on above: Postponed from 1973 (Not Indicated ) Start: 05-27-2024 COVID-19 Vaccine ( season) COVID-19 Vaccine ( season) [facility] Comment on above: Postponed from 05/27/2023 (Not Indicated ) Start: 05-27-2024 Diabetic foot examination Diabetic foot exam [facility] Comment on above: Postponed from 03/18/2022 (Not Indicated ) Start: 05-27-2024 Hepatitis B vaccine (1 of 3 - 19+ 3-dose series) Hepatitis B vaccine (1 of 3 - 19+ 3-dose series) [facility] Comment on above: Postponed from 02/29/1992 (Not Indicated ) Start: 05-27-2024 Hepatitis B vaccine (1 of 3 - 3-dose series) Hepatitis B vaccine (1 of 3 - 3-dose series) [facility] Comment on above: Postponed from 1973 (Not Indicated ) Start: 05-27-2024 HIV screening HIV screen [facility] Comment on above: Postponed from 02/29/1988 (Patient Refus ed) Start: 05-27-2024 Shingles vaccine (2 of 2) Shingles vaccine (2 of 2) [facility] Comment on above: Postponed from 05/20/2023 (Unavailable) Start: 05-16-2024 End: 05-16-2024 Patient encounter procedure 05/16/2024 1:40 PM EDT Office Visit [facility] [address] [place] [address] Nathan Ardon MD [address] [place] [address], [place] [address] 1 year [facility] Comment on above: 1 year Start: 05-03-2024 End: 05-03-2024 Patient encounter procedure 05/03/2024 1:00 PM EDT Appointment [facility] Physical Therapy [address] [place] [phone] Phu Mora [facility] Physical Therapy Start: 05-01-2024 End: 05-01-2024 Patient encounter procedure 05/01/2024 2:45 PM EDT Appointment [facility] Physical Therapy [address] [place] [phone] Phu Mora [facility] Physical Therapy Start: 04-26-2024 Influenza vaccination [facility] Start: 04-25-2024 End: 04-25-2024 Patient encounter procedure 04/25/2024 1:45 PM EDT Appointment [facility] Physical Therapy [address] [place] [phone] Sonia Baum, PT [facility] Comment on above: [facility] Start: 04-23-2024 End: 04-23-2024 Patient encounter procedure 04/23/2024 1:15 PM EDT Appointment [facility] Physical Therapy [address] [place] [phone] Phu Mora [facility] Physical Therapy Start: 04-18-2024 End: 04-18-2024 Patient encounter procedure 04/18/2024 3:00 PM EDT Appointment [facility] Physical Therapy [address] [place] [address] Phu Mora [facility] Physical Therapy Start: 04-16-2024 End: 04-16-2024 Patient encounter procedure 04/16/2024 1:00 PM EDT Appointment [facility] Physical Therapy [address] [place] [phone] Phu Mora [facility] Physical Therapy Start: 03-28-2024 End: 03-28-2024 Patient encounter procedure 03/28/2024 2:00 PM EDT Office Visit [facility] [address] [place] [phone] Vivian Oseguera, SENIOR ARCHITECT/DESIGN MANAGER - HOME CARE MANAGER [address] [place] [address] 6 MONTH [facility] Comment on above: 6 MONTH Start: 03-25-2024 Influenza vaccination Flu vaccine (#1) [facility] Comment on above: Postponed from 04/26/2023 (Unavailable) Start: 03-24-2024 Depression Monitoring Depression Monitoring [facility] Start: 03-24-2024 Hemoglobin A1c measurement A1C test (Diabetic or Prediabetic) [facility] Start: 03-08-2024 End: 03-08-2024 Patient encounter procedure 03/08/2024 1:45 PM EDT Appointment [facility] Physical Therapy [address] [place] [phone] Phu Mora NEW REFERRAL FOR SHOULDER PAIN. SENT REQUEST TO ORIGINAL REFERRING DOCTOR TO SIGN OFF ON ADDING IT TO POC [facility] Physical Therapy Comment on above: NEW REFERRAL FOR SHOULDER PAIN. SENT REQ UEST TO ORIGINAL REFERRING DOCTOR TO SIGN OFF ON ADDING IT TO POC Start: 03-06-2024 End: 03-06-2024 Patient encounter procedure 03/06/2024 1:15 PM EDT Office Visit [facility] [address] [facility] [address] [place] [address] Roxie Martini, DO [address] [place] [address] follow up [facility] Comment on above: follow up Start: 2024 End: 2024 Patient encounter procedure 2024 1:45 PM EDT Appointment [facility] Physical Therapy [address] [place] [phone] Génesis Hickman PTA [facility] Physical Therapy Start: 02-23-2024 End: 02-23-2024 Patient encounter procedure 02/23/2024 3:00 PM EDT Appointment [facility] Physical Therapy [address] [place] [phone] Lary Rea PTA [facility] Physical Therapy Start: 02-14-2024 End: 02-14-2024 Patient encounter procedure 02/14/2024 3:00 PM EDT Appointment [facility] Physical Therapy [address] [place] [phone] Sahara Strauss PT [facility] Physical Therapy Start: 02-08-2024 End: 02-08-2024 Patient encounter procedure 02/08/2024 1:15 PM EDT Appointment [facility] Physical Therapy [address] [place] [phone] Phu Mora [facility] Physical Therapy Start: 02-06-2024 End: 02-06-2024 Patient encounter procedure 02/06/2024 12:30 PM EDT Appointment [facility] Physical Therapy [address] [place] [phone] Dread Sunshine PTA [facility] Physical Therapy Start: 02-01-2024 End: 02-01-2024 Patient encounter procedure 02/01/2024 2:30 PM EDT Appointment [facility] Physical Therapy [address] [place] [phone] Dread Sunshine PTA [facility] Physical Therapy Start: 01-30-2024 End: 01-30-2024 Patient encounter procedure 01/30/2024 2:30 PM EDT Appointment [facility] Physical Therapy [address] [place] [phone] Phu Mora [facility] Physical [facility] Start: 01-25-2024 End: 01-25-2024 Patient encounter procedure 01/25/2024 2:45 PM EDT Appointment [facility] Physical Therapy [address] [place] [phone] Phu Mora [facility] Physical Therapy Start: 01-23-2024 End: 01-23-2024 Patient encounter procedure 01/23/2024 2:30 PM EDT Appointment [facility] Physical Therapy [address] [place] [address] [phone] AndiDisha PTA [facility] Physical Therapy Start: 12-27-2023 End: 12-27-2023 Patient encounter procedure 12/27/2023 1:30 PM EDT Office Visit [facility] [address] [phone] Chen Rocha PA-C [address] [place] [phone] leg edema, had labs done [facility] Comment on above: leg edema, had labs done Start: 09-28-2023 End: 09-28-2023 Patient encounter procedure 09/28/2023 3:40 PM EST Office Visit [facility] [address] [place] [address] Vivian Oseguera, SENIOR ARCHITECT/DESIGN MANAGER - HOME CARE MANAGER [address] [place] [address] 6 month [facility] Comment on above: 6 month Start: 09-23-2023 Depression Monitoring Depression Monitoring [facility] Start: 09-23-2023 DTaP/Tdap/Td vaccine (1 - Tdap) DTaP/Tdap/Td vaccine (1 - Tdap) [facility] Comment on above: Postponed from 02/29/1992 (Patient Refus ed) Start: 09-21-2023 GFR test (Diabetes, CKD 3-4, OR last GFR 15-59) GFR test (Diabetes, CKD 3-4, OR last GFR 15-59) [facility] Start: 09-21-2023 Hemoglobin A1c measurement A1C test (Diabetic or Prediabetic) [facility] Start: 09-21-2023 Lipid panel Lipids [facility] Start: 09-21-2023 Urine screening for protein Diabetic Alb to Cr ratio (uACR) test [facility] Start: 06-22-2023 End: 06-22-2023 Patient encounter procedure 06/22/2023 8:40 AM EDT Office Visit [facility] [address] [facility] [place] [address] Vivian Oseguera, SENIOR ARCHITECT/DESIGN MANAGER - HOME CARE MANAGER [address] [facility] [address] Hospital f/u-Pneumonia [facility] Comment on above: Hospital f/u-Pneumonia Start: 06-19-2023 Diabetic retinal exam Diabetic retinal exam [facility] Comment on above: Postponed from 10/17/2020 (Not Indicated ) Start: 06-19-2023 Glaucoma screening Diabetic retinal exam [facility] Comment on above: Postponed from 10/17/2020 (Not Indicated ) Start: 06-09-2023 Depression Monitoring Depression Monitoring [facility] Start: 06-09-2023 Influenza vaccination [facility] Comment on above: Postponed from 05/27/2022 (Patient Refus ed) Postponed from 04/26 (Patient Refused) Postponed from 04/26 (Patient Refused) Start: 05-20-2023 Shingles vaccine (2 of 2) Shingles vaccine (2 of 2) [facility] Start: 05-16-2023 End: 05-16-2023 Patient encounter procedure 05/16/2023 Office Visit Cardiology Nathan Ardon MD [address] [place] [address] [facility] Start: 05-15-2023 Screening for malignant neoplasm of breast Breast cancer screen [facility] Start: 03-30-2023 End: 03-30-2023 Patient encounter procedure 03/30/2023 Office Visit Cardiology Nathan Ardon MD [address] [place] [phone] [facility] Start: 03-24-2023 End: 03-24-2023 Patient encounter procedure 03/24/2023 Office Visit Primary Care Vivian Oseguera, SENIOR ARCHITECT/DESIGN MANAGER - HOME CARE MANAGER [address] [facility] [place] [address] [facility] [place] Start: 03-24-2023 COVID-19 Vaccine (#1) COVID-19 Vaccine (#1) [facility] [employer] Comment on above: Postponed from 1973 (Not Indicated ) Start: 03-24-2023 COVID-19 Vaccine (1) COVID-19 Vaccine (1) [facility] [employer] Comment on above: Postponed from 1978 (Not Indicated ) Start: 03-24-2023 Depression Monitoring Depression Monitoring [facility] [employer] Start: 03-24-2023 Diabetic foot examination Diabetic foot exam [facility] [employer] Comment on above: Postponed from 03/18/2022 (Patient Refus ed) Start: 03-24-2023 Hemoglobin A1c measurement A1C test (Diabetic or Prediabetic) [facility] [employer] Start: 03-24-2023 Hepatitis B vaccine (1 of 3 - Risk 3-dose series) Hepatitis B vaccine (1 of 3 - Risk 3-dose series) [facility] [employer] Comment on above: Postponed from 02/29/1992 (Patient Refus ed) Start: 03-24-2023 HIV screening HIV screen [facility] [employer] Comment on above: Postponed from 02/29/1988 (Patient Refus ed) Start: 03-24-2023 Pneumococcal 0-64 years Vaccine (2 - PCV) Pneumococcal 0-64 years Vaccine (2 - PCV) [facility] [employer] Comment on above: Postponed from 05/10/2019 (Not Indicated ) Start: 2023 Screening for malignant neoplasm of lung Lung Cancer Screening &/or Counseling [facility] [employer] Start: 01-19-2023 End: 01-19-2023 Patient encounter procedure 01/19/2023 Appointment Sleep Center [facility] Sleep Center Start: 12-08-2022 End: 12-08-2022 Admission to same day surgery center [facility] OR Comment on above: COLORECTAL CANCER SCREENING, NOT HIGH RI SK Start: 12-08-2022 End: 12-08-2022 Colon ca scrn not hi rsk ind [facility] Start: 12-08-2022 Subsequent hospital visit by physician [facility] Start: 11-23-2022 End: 11-23-2022 Patient encounter procedure 11/23/2022 Appointment Sleep Center [facility] Sleep Center Start: 10-23-2022 Creatinine measurement Creatinine monitoring [facility] Start: 10-23-2022 Lipid panel [facility] Start: 10-23-2022 Potassium monitoring Potassium monitoring [facility] Start: 10-23-2022 Urine screening for protein Diabetic microalbuminuria test [facility] Start: 10-08-2022 End: 10-08-2022 Patient encounter procedure 10/08/2022 Appointment EKG [facility] EKG Start: 10-01-2022 Subsequent hospital visit by physician 10/01/2022 Hospital Encounter Stress Lab Canceled (Other) [facility] Stress Lab Comment on above: Canceled (Other) Start: 09-23-2022 End: 09-23-2022 Patient encounter procedure 09/23/2022 Office Visit Primary Care Vivian Oseguera, SENIOR ARCHITECT/DESIGN MANAGER - HOME CARE MANAGER [address] [place] [address] [facility] Start: 09-17-2022 DTaP/Tdap/Td vaccine (1 - Tdap) DTaP/Tdap/Td vaccine (1 - Tdap) [facility] Comment on above: Postponed from 02/29/1992 (Patient Refus ed) Start: 09-17-2022 Influenza vaccination Flu vaccine (#1) [facility] Comment on above: Postponed from 05/27/2021 (Patient Refus ed) Start: 09-10-2022 End: 09-10-2022 Patient encounter procedure 09/10/2022 Appointment Lab [facility] Covid Screening Start: 08-06-2022 End: 08-06-2022 Patient encounter procedure 08/06/2022 Appointment Physical Therapy Vineet Matos, PT [facility] Start: 07-23-2022 End: 07-23-2022 Patient encounter procedure 07/23/2022 Appointment Physical Therapy Vineet Matos, PT [facility] Start: 07-22-2022 End: 07-22-2022 Patient encounter procedure 07/22/2022 Appointment Physical Therapy Mulu Mccray PTA [facility] Start: 07-21-2022 End: 07-21-2022 Patient encounter procedure 07/21/2022 Appointment Physical Therapy Karrie Beltran PTA [facility] Start: 07-19-2022 End: 07-19-2022 Patient encounter procedure [facility] Start: 07-16-2022 End: 07-16-2022 Patient encounter procedure 07/16/2022 Appointment Physical Therapy Vineet Matos PT [facility] Start: 07-14-2022 End: [...] encounter procedure 07/08/2022 Appointment Physical Therapy Vineet Matos PT [facility] Start: 07-07-2022 End: 07-07-2022 Patient encounter procedure 07/07/2022 Appointment Physical Therapy Karrie Beltran PTA [facility] Start: 07-05-2022 End: 07-05-2022 Patient encounter procedure 07/05/2022 Appointment Physical Therapy Karrie Beltran PTA [facility] Start: 07-02-2022 End: 07-02-2022 Patient encounter procedure 07/02/2022 Appointment Physical Therapy Vineet Matos, PT [facility] Start: 06-30-2022 End: 06-30-2022 Patient encounter procedure 06/30/2022 Appointment Physical Therapy Karrie Beltran PTA [facility] Start: 06-28-2022 End: 06-28-2022 Patient encounter procedure 06/28/2022 Appointment Physical Therapy Karrie Beltran PTA [facility] Start: 06-24-2022 End: 06-24-2022 Patient encounter procedure 06/24/2022 Appointment Physical Therapy Vineet Matos, PT [facility] Start: 06-21-2022 End: 06-21-2022 Patient encounter procedure 06/21/2022 Appointment Physical Therapy Génesis Hickman PTA [facility] Start: 06-21-2022 Subsequent hospital visit by physician 06/21/2022 Hospital Encounter Physical Therapy Génesis Hickman PTA [facility] Start: 06-18-2022 End: 06-18-2022 Patient encounter procedure 06/18/2022 Appointment Physical Therapy Karrie Beltran PTA [facility] Start: 06-16-2022 End: 06-16-2022 Patient encounter procedure 06/16/2022 Appointment Physical Therapy Karrie Beltran PTA [facility] Start: 06-14-2022 End: 06-14-2022 Patient encounter procedure 06/14/2022 Appointment Physical Therapy Karrie Beltran PTA [facility] Start: 06-11-2022 End: 06-11-2022 Patient encounter procedure 06/11/2022 Appointment Physical Therapy Vineet Matos, PT [facility] Start: 06-09-2022 End: 06-09-2022 Patient encounter procedure 06/09/2022 Appointment Physical Therapy Karrie Beltran PTA [facility] Start: 06-07-2022 End: 06-07-2022 Patient encounter procedure 06/07/2022 Appointment Physical Therapy Karrie Beltran PTA [facility] Start: 06-04-2022 End: 06-04-2022 Patient encounter procedure 06/04/2022 Appointment Physical Therapy Karrie Beltran [employer] [facility] Start: 06-02-2022 End: 06-02-2022 Patient encounter procedure 06/02/2022 Appointment Physical Therapy Karrie Beltran PTA [facility] Start: 06-02-2022 Subsequent hospital visit by physician 06/02/2022 Hospital Encounter Physical Therapy Karrie Beltran PTA [facility] Start: 05-28-2022 End: 05-28-2022 Patient encounter procedure 05/28/2022 Appointment Physical Therapy Vineet Matos, PT [facility] Start: 05-27-2022 End: 05-27-2022 Patient encounter procedure 05/27/2022 Appointment Physical Therapy Vineet Matos, PT [facility] Start: 05-27-2022 Influenza vaccination Flu vaccine (#1) [facility] Start: 05-27-2022 End: 05-27-2022 Nursing evaluation of patient and report 05/27/2022 Nurse Only General Surgery Binta Pearl I, DO [address] [facility] [address] [place] [address] [facility] Start: 05-25-2022 End: 05-25-2022 Patient encounter procedure 05/25/2022 Appointment Physical Therapy Nathan Garcia, PT [facility] Physical Therapy Start: 05-19-2022 End: 05-19-2022 Patient encounter procedure 05/19/2022 Procedure visit General Surgery Binta Pearl I, [address] [place] [address] [facility] Start: 05-12-2022 End: 05-12-2022 Patient encounter procedure 05/12/2022 Office Visit General Surgery Binta Pearl I, [address] [facility] [address] [place] [address] [facility] Start: 03-28-2022 Diabetic retinal exam Diabetic retinal exam [facility] [facility] Comment on above: Postponed from 10/17/2020 (Not Indicated ) Start: 03-18-2022 Diabetic foot examination Diabetic foot exam [facility] Start: 03-18-2022 Hepatitis B vaccine (1 of 3 - Risk 3-dose series) Hepatitis B vaccine (1 of 3 - Risk 3-dose series) [facility] Comment on above: Postponed from 02/29/1992 (Not Indicated ) Start: 03-18-2022 End: 03-18-2022 Patient encounter procedure 03/18/2022 Office Visit Primary Care Vivian Oseguera SENIOR ARCHITECT/DESIGN MANAGER - HOME CARE MANAGER [address] [place] [address] [facility] Start: 03-18-2022 Screening for malignant neoplasm of cervix Cervical cancer screen [facility] [place] Phone: Comment on above: Postponed from 06/02/2020 (Not Indicated ) Start: 03-11-2022 Creatinine measurement Creatinine monitoring [facility] [place] Phone: Start: 03-11-2022 Potassium monitoring Potassium monitoring [facility] [place] Phone: Start: 02-09-2022 COVID-19 Vaccine (1) COVID-19 Vaccine (1) [facility] Comment on above: Postponed from 1985 (Patient Refus ed) Postponed from 02/28 (Patient Refused) Start: 02-09-2022 Hepatitis C screening Hepatitis C screen [facility] [place] Phone: Comment on above: Postponed from 1973 (Patient Refus ed) Start: 02-04-2022 End: 02-04-2022 Patient encounter procedure [facility] Start: 01-21-2022 Hemoglobin A1c measurement A1C test (Diabetic or Prediabetic) [facility] Start: 10-15-2021 End: 10-15-2021 ambulatory 10/15/2021 Virtual Visit Gastroenterology Claudia Willett, SENIOR ARCHITECT/DESIGN MANAGER - HOME CARE MANAGER [address] [place] [address] [phone] [facility] Start: 09-17-2021 End: 09-17-2021 Patient encounter procedure 09/17/2021 Office Visit Primary Care Vivian Oseguera SENIOR ARCHITECT/DESIGN MANAGER - HOME CARE MANAGER [address] [place] [address] [phone] [facility] Start: 09-16-2021 DTaP/Tdap/Td vaccine (1 - Tdap) DTaP/Tdap/Td vaccine (1 - Tdap) [facility] [place] [place] Comment on above: Postponed from 02/29/1992 (Patient Refus ed) Start: 09-16-2021 HIV screening HIV screen [place], [place] Comment on above: Postponed from 02/29/1988 (Patient Refus ed) Start: 09-03-2021 End: 09-03-2021 Patient encounter procedure 09/03/2021 Office Visit Cardiology Nathan Ardon MD [address] [place] [id number] [facility] Start: 08-13-2021 HbA1c (Bld) [Mass fraction] A1C test (Diabetic or Prediabetic) [place] Start: 08-13-2021 Hemoglobin A1c measurement A1C test (Diabetic or Prediabetic) [facility] Phone: Start: 08-13-2021 Lipid panel Lipid screen [place] Start: 05-27-2021 Influenza vaccination Flu vaccine (#1) [facility] [place] Phone: Start: 03-18-2021 End: 03-18-2021 Office Visit [facility] Start: 03-12-2021 Hepatitis B vaccine (1 of 3 - Risk 3-dose series) Hepatitis B vaccine (1 of 3 - Risk 3-dose series) [place] Comment on above: Postponed from 02/29/1992 (Not Indicated ) Start: 03-09-2021 End: 03-09-2021 Patient encounter procedure 03/09/2021 Office Visit Gastroenterology Leah Martins MD [address] [place] [address] [phone] [facility] Start: 03-04-2021 End: 03-04-2021 Patient encounter procedure 03/04/2021 Appointment Stress Lab [facility] Stress [facility] Start: 02-09-2021 End: 02-09-2021 Patient encounter procedure 02/09/2021 Office Visit Primary Care Vivian Oseguera, SENIOR ARCHITECT/DESIGN MANAGER - HOME CARE MANAGER [address] [facility] [place] [address] [phone] [facility] Start: 01-28-2021 End: 01-28-2021 Office Visit 01/28/2021 Office Visit Urology Evan Everett MD [address] [place] [address], [address] [place] [address] [phone] [facility] Start: 11-21-2020 Diabetic microalbuminuria test Diabetic microalbuminuria test [employer] Phone: Comment on above: Postponed from 09/25/2019 (Not Indicated ) Start: 10-18-2020 Creatinine measurement Creatinine monitoring [employer] [facility] [place] Start: 10-18-2020 Creatinine monitoring Creatinine monitoring [employer] Phone: Start: 10-18-2020 Potassium monitoring Potassium monitoring [employer] Phone: Start: 10-17-2020 Diabetic retinal exam Diabetic retinal exam [employer] [employer] Start: 10-17-2020 Glaucoma screening Diabetic retinal exam [employer] Start: 09-11-2020 End: 09-11-2020 Office Visit 09/11/2020 Office Visit Primary Care Vivian Oseguera W, SENIOR ARCHITECT/DESIGN MANAGER - HOME CARE MANAGER [address] [place] [address] [facility] Start: 09-10-2020 DTaP/Tdap/Td vaccine (1 - Tdap) DTaP/Tdap/Td vaccine (1 - Tdap) [employer] Phone: Comment on above: Postponed from 02/29/1992 (Patient Refus ed) Postponed from 02/28 (Patient Refused) Start: 09-10-2020 HIV screen HIV screen [employer] Phone: Comment on above: Postponed from 02/29/1988 (Patient Refus ed) Start: 09-10-2020 HIV screening HIV screen [employer] Comment on above: Postponed from 02/29/1988 (Patient Refus ed) Start: 07-20-2020 Creatinine monitoring Creatinine monitoring [employer] Start: 07-20-2020 Potassium monitoring Potassium monitoring [place] Start: 06-11-2020 [object Object] Diabetic foot exam [place] Start: 06-11-2020 Diabetic foot examination Diabetic foot exam [place] Start: 06-04-2020 Creatinine monitoring Creatinine monitoring [place], [place] Start: 06-04-2020 Lipid panel Lipid [place] Start: 06-04-2020 Lipid screen Lip[place] Start: 06-04-2020 Potassium monitoring Potassium [place] Start: 06-02-2020 Cervical cancer screen Cervical cancer screen [place] Start: 06-02-2020 Screening for malignant neoplasm of cervix [facility] Start: 05-27-2020 Influenza vaccination Flu vaccine (#1) [place] Start: 03-28-2020 HbA1c (Bld) [Mass fraction] A1C test (Diabetic or Prediabetic) [place] Start: 03-25-2020 Creatinine monitoring Creatinine monitoring [place] Start: 03-25-2020 Potassium monitoring Potassium [place] Start: 03-12-2020 End: 03-12-2020 Office Visit [facility] Start: 02-29-2020 Diabetic retinal exam Diabetic retinal exam [place] Comment on above: Postponed from 01/02/2019 (Patient Refus ed) Start: 02-29-2020 Hepatitis B Vaccine (1 of 3 - Risk 3-dose series) Hepatitis B Vaccine (1 of 3 - Risk 3-dose series) [place] Comment on above: Postponed from 02/29/1992 (Patient Refus ed) Start: 01-28-2020 End: 01-28-2020 Office Visit [facility] Start: 10-20-2019 A1C test (Diabetic or Prediabetic) A1C test (Diabetic or Prediabetic) [place] Start: 10-15-2019 End: 10-15-2019 Office Visit 10/15/2019 Office Visit Cardiology Nathan Ardon MD [address] [place] [address] [place] [address] [facility] Start: 09-25-2019 Diabetic microalbuminuria test Diabetic microalbuminuria test [place] Start: 09-10-2019 End: 09-10-2019 Office Visit 09/10/2019 Office Visit Primary Care Vivian Oseguera, SENIOR ARCHITECT/DESIGN MANAGER - HOME CARE MANAGER [address] [place] [address] [phone] [facility] Start: 09-04-2019 End: 09-04-2019 Office Visit 09/04/2019 Office Visit Otolaryngology Hever Olivera PA [address] [place] [address] [phone] [facility] Start: 09-03-2019 A1C test (Diabetic or Prediabetic) A1C test (Diabetic or Prediabetic) [place] Start: 08-24-2019 DTaP/Tdap/Td vaccine (1 - Tdap) DTaP/Tdap/Td vaccine (1 - Tdap) [place] Comment on above: Postponed from 02/29/1992 (Patient Refus ed) Postponed from 02/28 (Patient Refused) Start: 08-24-2019 HIV screen HIV screen [place] Comment on above: Postponed from 02/29/1988 (Patient Refus ed) Start: 08-22-2019 End: 08-22-2019 Appointment 08/22/2019 Appointment Radiology [facility] Nuclear Medicine Start: 08-21-2019 Lipid screen Lipid screen [place] Start: 08-16-2019 End: 08-16-2019 Appointment 08/16/2019 Appointment Radiology [facility] Nuclear Medicine Start: 08-03-2019 End: 08-03-2019 Appointment 08/03/2019 Appointment Radiology [facility] Ultrasound Start: 07-26-2019 End: 07-26-2019 Office Visit 07/26/2019 Office Visit Otolaryngology Hever Olivera PA [address] [place] [address] [phone] [facility] Start: 06-11-2019 End: 06-11-2019 Office Visit 06/11/2019 Office Visit Primary Care CaneloVivian, SENIOR ARCHITECT/DESIGN MANAGER - HOME CARE MANAGER [address] [id number] [phone] [facility] [place] Start: 05-31-2019 A1C test (Diabetic or Prediabetic) A1C test (Diabetic or Prediabetic) [place] Start: 05-27-2019 Influenza vaccination Flu vaccine (#1) [place] Start: 05-10-2019 [object Object] Diabetic foot exam [place] Start: 05-10-2019 Pneumococcal 0-64 years Vaccine (2 - PCV) Pneumococcal 0-64 years Vaccine (2 - PCV) [facility] Start: 05-10-2019 Pneumococcal 0-64 years Vaccine (2 of 2 - PCV) Pneumococcal 0-64 years Vaccine (2 of 2 - PCV) [facility] Start: 05-10-2019 Pneumococcal 50+ years Vaccine (2 of 2 - PCV) Pneumococcal 50+ years Vaccine (2 of 2 - PCV) [facility] Start: 2018 Screening for malignant neoplasm of colon [facility] Start: 2003 Screening for malignant neoplasm of cervix HPV (without or with Pap) [facility] Start: 02-29-1992 DTaP/Tdap/Td vaccine (1 - Tdap) DTaP/Tdap/Td vaccine (1 - Tdap) [facility] Start: 02-29-1992 Hepatitis B vaccine (1 of 3 - 19+ 3-dose series) Hepatitis B vaccine (1 of 3 - 19+ 3-dose series) [facility] Start: 1991 Urine screening for protein Diabetic Alb to Cr ratio (uACR) test [facility] Start: 1989 COVID-19 Vaccine (1) COVID-19 Vaccine (1) [facility] Work Phone: Start: 02-29-1988 HIV screening HIV screen [facility] Start: 1985 Depression Monitoring Depression Monitoring [facility] Start: 1973 Hepatitis C screening Hepatitis C screen [place], [place] End: 12-28-2019 AMINO ACID, QUANT AMINO ACID, QUANT Lab Routine Once for 1 Occurrences starting 12/28/2019 until 12/28/2019 [place] Comment on above: Once for 1 Occurrences starting 12/28/19 until 12/28/2019 AMINO ACID, QUANT AMINO ACID, QU ANT Lab Routine 12/28/2019 2:54 PM EDT [facility] [place] End: 03-11-2021 Anti-smooth muscle antibody Anti-smooth muscle antibody Lab Routine Abnormal LFTs 1 Occurrences starting 03/11/2021 until 03/11/2021 [employer] Work Phone: Comment on above: 1 Occurrences starting 03/11/2021 until 03/11/2021 End: 06-15-2023 Basic Metabolic Panel w/ Reflex to MG Basic Metabolic Panel w/ Reflex to MG Lab Routine Daily for 5 Days starting 06/11/2023 until 06/15/2023, 4 completed [employer] Comment on above: Daily for 5 Days starting 06/11/2023 unt il 06/15/2023, 4 completed Blood Culture 1 Blood Culture 1 Microbiology STAT 06/10/2023 11:30 PM EDT [employer] End: 07-27-2024 C-reactive protein C-Reactive Protein Lab Routine Q48H for 3 Days starting 07/25/2024 until 07/27/2024, 1 completed [employer] Comment on above: Q48H for 3 Days starting 07/25/2024 unti l 07/27/2024, 1 completed End: 03-03-2021 Cardiac stress test EKG study Type Echo stress test Echocardiography Routine Essential hypertension Chest discomfort Hyperlipidemia, unspecified hyperlipidemia type Tobacco abuse 1 Occurrences starting 03/03/2021 until 03/03/2021 [employer] Work Phone: Comment on above: 1 Occurrences starting 03/03/2021 until 03/03/2021 End: 12-28-2019 Carnitine Carnitine Lab Routine Once for 1 Occurrences starting 12/28/2019 until 12/28/2019 [place] Comment on above: Once for 1 Occurrences starting 12/28/19 until 12/28/2019 Carnitine Carnitine Lab Ro utine 12/28/2019 2:54 PM EDT [facility] [place] End: 06-15-2023 CBC W Auto Differential panel - Blood CBC auto differential Lab Routine Daily for 5 Days starting 06/11/2023 until 06/15/2023, 4 completed [facility] [employer] Comment on above: Daily for 5 Days starting 06/11/2023 unt il 06/15/2023, 4 completed End: 10-08-2022 Continuous cardiac monitoring, >2 up to 14 days Continuous cardiac monitoring, >2 up to 14 days Cardiac Services Routine Syncope and collapse Preop cardiovascular exam Dizziness Primary hypertension Mixed hyperlipidemia Tobacco abuse counseling 1 Occurrences starting 10/08/2022 until 10/08/2022 [facility] [employer] Phone: Comment on above: 1 Occurrences starting 10/08/2022 until 10/08/2022 Continuous pulse oximetry Pulse oximetry, continuous Respiratory Care Routine Every 4hr until discontinued starting 06/11/2023 [facility] [employer] Comment on above: Every 4hr until discontinued starting End: 09-30-2020 COVID-19 COVID-19 Lab Routine Preoperative testing 1 Occurrences starting 09/30/2020 until 09/30/2020 [facility] [place] Comment on above: 1 Occurrences starting 09/30/2020 until 09/30/2020 COVID-19 COVID-19 Lab [place] Preoperative testing 09/30/2020 1:20 PM [facility] [place] End: 11-26-2021 [employer] Work Phone: Comment on above: Once for 1 Occurrences starting 11/27/19 until 11/26/2021 End: 04-09-2022 COVID-19 [employer] Work Phone: Comment on above: Once for 1 Occurrences starting 04/09/20 until 04/09/2022 End: 09-03-2022 COVID-19 [employer] Work Phone: Comment on above: Once for 1 Occurrences starting 09/03/20 until 09/03/2022 End: 09-10-2022 COVID-19 [employer] Phone: Comment on above: Once for 1 Occurrences starting 09/10/20 until 09/10/2022 End: 07-08-2020 Covid-19 Ambulatory Covid-19 Ambulatory Lab Routine Once for 1 Occurrences starting 07/08/2020 until 07/08/2020 [employer] Comment on above: Once for 1 Occurrences starting 07/08/20 until 07/08/2020 Covid-19 Ambulatory Covid-19 Amb ulatory Lab Routine 07/08/2020 1:06 PM EDT [employer] [facility] End: 07-26-2024 CT Ankle - left WO contrast [employer] Comment on above: Once for 1 Occurrences starting 07/26/20 until 07/26/2024 End: 07-26-2024 CT Foot - left WO contrast [employer] Comment on above: Once for 1 Occurrences starting 07/26/20 until 07/26/2024 End: 08-31-2024 CT Foot - left WO contrast [employer] Comment on above: 1 Occurrences starting 08/31/2024 until 08/31/2024 End: 07-02-2024 CT Sinuses W contrast IV CT SINUS W CONTRAST Imaging Routine Recurrent pansinusitis 1 Occurrences starting 07/02/2024 until 07/02/2024 [employer] Comment on above: 1 Occurrences starting 07/02/2024 until 07/02/2024 Culture, Blood 2 Culture, Blood 2 Microbiology STAT 06/10/2023 11:40 PM EDT [employer] End: 01-28-2021 Culture, Urine Culture, Urine Microbiology Routine Renal stones Renal colic 1 Occurrences starting 01/28/2021 until 01/28/2021 [employer] Work Phone: Comment on above: 1 Occurrences starting 01/28/2021 until 01/28/2021 Culture, Urine Culture, Urine Microbiology Routine Renal stones Renal colic 01/28/2021 11:00 AM EDT [employer] Work Phone: EKG 12 Lead EKG 12 Lead ECG Routine 08/06/2022 2:34 PM EST [employer] Work Phone: EKG 12 Lead EKG 12 Lead ECG STAT 08/06/2022 5:11 PM EST [employer] Work Phone: End: 12-28-2019 Factor 8 Assay Factor 8 Assay Lab Routine Once for 1 Occurrences starting 12/28/2019 until 12/28/2019 [facility], [place] Comment on above: Once for 1 Occurrences starting 12/28/19 20 until 12/28/2019 Factor 8 Assay Factor 8 Assay L ab Routine 12/28/2019 2:54 PM EDT [facility], [place] End: 12-28-2019 Fibrinogen Fibrinogen Lab Routine Once for 1 Occurrences starting 12/28/2019 until 12/28/2019 [facility] Comment on above: Once for 1 Occurrences starting 12/28/19 20 until 12/28/2019 F[facility]ogen Fibrinogen Lab R outine 12/28/2019 2:54 PM EDT [facility], [place] End: 12-08-2022 Glucose [Mass/volume] in Serum or Plasma POCT Glucose Point of Care Testing STAT One Time for 1 Occurrences starting 12/08/2022 until 12/08/2022 [employer] Comment on above: One Time for 1 Occurrences starting 11/24 until 12/08/2022 Glucose [Mass/volume ] in Serum or Plasma POCT Glucose Point of Care Testing STAT As Needed until discontinued starting 06/11/2023 [employer] Comment on above: As Needed until discontinued starting Glucose [Mass/volume ] in Serum or Plasma [employer] Comment on above: As Needed until discontinued starting 4X Daily (AC & HS) u ntil discontinued starting 06/11/2023 End: 07-23-2024 Glucose [Mass/volume] in Serum or Plasma [employer] Work Phone: Comment on above: One Time for 1 Occurrences starting 06/27 until 07/23/2024 4X Daily (AC & HS) u ntil discontinued starting 07/24/2024 As Needed until disc ontinued starting 07/23/2024 Glucose [Mass/volume ] in Serum or Plasma POCT Glucose Point of Care Testing STAT As Needed until discontinued starting 09/14/2024 [employer] Work Phone: Comment on above: As Needed until discontinued starting End: 08-13-2020 HbA1c (Bld) [Mass fraction] Hemoglobin A1C Lab Routine Once for 1 Occurrences starting 08/13/2020 until 08/13/2020 [employer] Comment on above: Once for 1 Occurrences starting 08/13/20 20 until 08/13/2020 HbA1c (Bld) [Mass fraction] Hemoglobin A1C Lab Routine 08/13/2020 11:47 AM EST [facility] [place] End: 09-21-2022 Hemoglobin A1c/Hemoglobin.total in Blood [employer] Work Phone: Comment on above: 1 Occurrences starting 09/21/2022 until 09/21/2022 End: 06-08-2024 Hemoglobin A1c/Hemoglobin.total in Blood [employer] Comment on above: Once for 1 Occurrences starting 06/08/20 24 until 06/08/2024 End: 07-14-2024 Hemoglobin A1c/Hemoglobin.total in Blood Hemoglobin A1C Lab Routine One Time for 1 Occurrences starting 07/14/2024 until 07/14/2024 [employer] Work Phone: Comment on above: One Time for 1 Occurrences starting 06/26 until 07/14/2024 End: 10-11-2024 Hemoglobin A1c/Hemoglobin.total in Blood [employer] Comment on above: Once for 1 Occurrences starting 10/11/19 until 10/11/2024 End: 03-11-2021 Hepatitis A Antibody, Total Hepatitis A Antibody, Total Lab Routine Abnormal LFTs 1 Occurrences starting 03/11/2021 until 03/11/2021 [employer] Phone: Comment on above: 1 Occurrences starting 03/11/2021 until 03/11/2021 Hepatitis A Antibody , Total Hepatitis A Antibody, Total Lab Routine Abnormal LFTs 03/11/2021 12:57 PM EDT [employer] Phone: End: 03-11-2021 Hepatitis B surface antibody Hepatitis B surface antibody Lab Routine Abnormal LFTs 1 Occurrences starting 03/11/2021 until 03/11/2021 [employer] Phone: Comment on above: 1 Occurrences starting 03/11/2021 until 03/11/2021 Home BIPAP or CPAP Home BIPAP or CPAP Respiratory Care Routine QHS until discontinued starting 06/11/2023 [employer] Comment on above: QHS until discontinued starting 06/11/20 End: 11-23-2022 Home sleep study Home sleep study Sleep Center Routine Tired Fatigue, unspecified type LAYNE (obstructive sleep apnea) 1 Occurrences starting 11/23/2022 until 11/23/2022 [employer] Work Phone: Comment on above: 1 Occurrences starting 11/23/2022 until 11/23/2022 End: 03-11-2021 Immunoglobulins, Quantitative Immunoglobulins, Quantitative Lab Routine Abnormal LFTs 1 Occurrences starting 03/11/2021 until 03/11/2021 [employer] Phone: Comment on above: 1 Occurrences starting 03/11/2021 until 03/11/2021 Immunoglobulins, Quantitative Immunoglobulins, Quantitative Lab Routine Abnormal LFTs 03/11/2021 12:57 PM EDT [employer] Phone: End: 12-28-2019 MISCELLANEOUS TESTING MISCELLANEOUS TESTING Lab Routine Once for 1 Occurrences starting 12/28/2019 until 12/28/2019 [employer] [place], [place] Comment on above: Once for 1 Occurrences starting 12/28/19 20 until 12/28/2019 MISCELLANEOUS TESTING MISCELLANE OUS TESTING Lab Routine 12/28/2019 4:12 PM EDT [employer] End: 03-11-2021 MITOCHONDRIAL ANTIBODIES, M2, IGG MITOCHONDRIAL ANTIBODIES, M2, IGG Lab Routine Once for 1 Occurrences starting 03/11/2021 until 03/11/2021 [employer] Phone: Comment on above: Once for 1 Occurrences starting 03/11/20 21 until 03/11/2021 MITOCHONDRIAL ANTIBO DIES, M2, IGG MITOCHONDRIAL ANTIBODIES, M2, IGG Lab Routine 03/11/2021 12:57 PM EDT [employer] Phone: End: 03-11-2021 MITOCHONDRIAL ANTIBODY W/REFLEX TITER MITOCHONDRIAL ANTIBODY W/REFLEX TITER Lab Routine Abnormal LFTs 1 Occurrences starting 03/11/2021 until 03/11/2021 [employer] Phone: Comment on above: 1 Occurrences starting 03/11/2021 until 03/11/2021 Nasal Cannula Oxygen Nasal Cannu la Oxygen Respiratory Care Routine Daily until discontinued starting 06/11/2023 [employer] Comment on above: Daily until discontinued starting 2022 End: 08-16-2019 NM GASTRIC EMPTYING NM GASTRIC EMPTYING Imaging Routine Generalized abdominal pain 1 Occurrences starting 08/16/2019 until 08/16/2019 [employer] [place] Comment on above: 1 Occurrences starting 08/16/2019 until 08/16/2019 End: 03-11-2021 Nuclear Ab [Titer] in Serum by Immunofluorescence [facility] Lab Routine Abnormal LFTs 1 Occurrences starting 03/11/2021 until 03/11/2021 [employer] Phone: Comment on above: 1 Occurrences starting 03/11/2021 until 03/11/2021 Nuclear Ab [Titer] i n Serum by Immunofluorescence [facility] Lab Routine Abnormal LFTs 03/11/2021 12:57 PM EDT [employer] Phone: Oxygen therapy [Mini mum Data Set] Initiate Oxygen Therapy Protocol Respiratory Care Routine As Needed until discontinued starting 06/11/2023 [employer] Comment on above: As Needed until discontinued starting Oxygen therapy [Mini mum Data Set] Initiate Oxygen Therapy Protocol Respiratory Care Routine As Needed until discontinued starting 07/23/2024 [employer] Comment on above: As Needed until discontinued starting Oxygen therapy [Mini mum Data Set] Initiate Oxygen Therapy Protocol Respiratory Care Routine As Needed until discontinued starting 09/14/2024 [employer] Comment on above: As Needed until discontinued starting Oxygen therapy [Mini mum Data Set] Initiate Oxygen Therapy Protocol Respiratory Care Routine As Needed until discontinued starting 09/14/2024 [employer] Comment on above: As Needed until discontinued starting Pathology study Surgical Patholo gy Lab Routine Charcot ankle, left Diabetes (HCC) Release Upon Ordering for 1 Occurrences starting 09/14/2024 [employer] Comment on above: Release Upon Ordering for 1 Occurrences starting 09/14/2024 Positive Expiratory Pressure Therapy [facility] [employer] Comment on above: 4X Daily until discontinued starting As Needed until disc ontinued starting 06/11/2023 End: 01-19-2023 Sleep study with PAP titration Sleep study with PAP titration Sleep Center Routine LAYNE (obstructive sleep apnea) 1 Occurrences starting 01/19/2023 until 01/19/2023 [employer] Phone: Comment on above: 1 Occurrences starting 01/19/2023 until 01/19/2023 End: 03-11-2021 Smooth Muscle Antibody Quant Smooth Muscle Antibody Quant Lab Routine Once for 1 Occurrences starting 03/11/2021 until 03/11/2021 [employer] Phone: Comment on above: Once for 1 Occurrences starting 03/11/20 21 until 03/11/2021 Smooth Muscle Antibo dy Quant Smooth Muscle Antibody Quant Lab Routine 03/11/2021 12:57 PM EDT [employer] Phone: End: 07-19-2022 Smooth Muscle Antibody Quant [employer] Phone: Comment on above: 1 Occurrences starting 07/19/2022 until 07/19/2022 Surgical Pathology Surgical Path ology Lab Routine Screening for colon cancer Release Upon Ordering for 1 Occurrences starting 12/08/2022 [employer] Phone: Comment on above: Release Upon Ordering for 1 Occurrences starting 12/08/2022 Vibratory Airway Clearance [employer] Comment on above: As Needed until discontinued starting TID until discontinu ed starting 06/11/2023 Immunizations Immunization Date Immunization Notes Care Provider Fa [facility] 03-25-2023 zoster [facility]23 zoster recombinant adjuvanted vaccine (SHINGRIX) 50 MCG/0.5ML SUSR injection [facility] 07-25-2020 influenza, injectabl e, quadrivalent, contains preservative [facility] [employer] 06-11-2019 influenza, injectabl e, quadrivalent, preservative free Vivian Might [facility] 08-24-2018 influenza, injectabl e, quadrivalent, preservative free Vivian Might [place], [place] 05-10-2018 pneumococcal polysac charide vaccine, 23 valent Vivian Might [facility] 07-09-2015 influenza virus vacc ine, unspecified formulation Vivian Might [facility] 07-04-2013 influenza virus vacc ine, unspecified formulation Vivian Might [facility] 08-29-2009 novel influenza-H1N1 -09, preservative-free, injectable Vivian Might [place], [place] Payers Date Payer Category Payer Unknown [id number] 2022 Self-pay [id number] 2022 Unknown 2021 Unknown BCBS [place] - [place] P PO [id number] 2021-Present [phone] [address] [place] [address] [id number] .[id number] 2020 Private Health Insurance [id number] [id number] .[id number] 2017 Unknown [employer] M [employer] [address] xxxxxxxxxxxx 2017-Present [phone] [address] [place] [address] xxxxxxxxxxxx 1.2.840.695355.1.13.239.2 .7.3.701349.315 1973 Unknown [id number] 2.16.840.1.087739.3.579.2 .182 1973 Unknown [id number] 2.16.840.1.937434.3.579.2 .593 1973 Unknown [id number] 2.16.840.1.548620.3.579.2 .593 1973 Unknown [id number] 2.16.840.1.175968.3.579.2 .593 1973 Unknown [id number] 2.16.840.1.156738.3.579.2 .593 1973 Unknown [id number] 2.16.840.1.191592.3.579.2 .593 1973 Unknown [id number] 2.16.840.1.296844.3.579.2 .593 1973 Unknown [id number] 2.16.840.1.586565.3.579.2 .593 1973 Unknown [id number] 2.16.840.1.650945.3.579.2 .593 1973 Unknown [id number] 2.16.840.1.653730.3.579.2 .593 1973 Unknown [id number] 2.16.840.1.035404.3.579.2 .593 1973 Unknown [id number] 2.16.840.1.240398.3.579.2 .593 1973 Unknown [id number] 2.16.840.1.040140.3.579.2 .593 1973 Unknown [id number] 2.16.840.1.484429.3.579.2 .593 1973 Unknown [id number] 2.16.840.1.300458.3.579.2 .593 1973 Unknown [id number] 2.16.840.1.286654.3.579.2 .593 1973 Unknown [id number] 2.16.840.1.385663.3.579.2 .593 1973 Unknown [id number] 2.16.840.1.710458.3.579.2 .176 1973 Unknown [id number] 2.16.840.1.392640.3.579.2 .176 1973 Unknown [id number] 2.16.840.1.148250.3.579.2 .176 1973 Unknown [id number] 2.16.840.1.327328.3.579.2 .176 1973 Unknown [id number] 2.16.840.1.651652.3.579.2 .196 1973 Unknown [id number] 2.16.840.1.273311.3.579.2 .196 1973 Unknown [id number] 2.16.840.1.043110.3.579.2 .196 1973 Unknown [id number] 2.16.840.1.251363.3.579.2 .196 1973 Unknown [id number] 2.16.840.1.379882.3.579.2 .196 1973 Unknown [id number] 2.16.840.1.415553.3.579.2 .196 1973 Unknown [id number] 2.16.840.1.756081.3.579.2 .173 1973 Unknown [id number] 2.16.840.1.489732.3.579.2 .173 1973 Unknown [id number] 2.16.840.1.811218.3.579.2 .173 1973 Unknown [id number] 2.16.840.1.931559.3.579.2 .173 1973 Unknown [id number] 2.16.840.1.710663.3.579.2 .173 1973 Unknown [id number] 2.16.840.1.247962.3.579.2 .173 1973 Unknown [id number] 2.16.840.1.618458.3.579.2 .173 1973 Unknown [id number] 2.16.840.1.188671.3.579.2 .173 1973 Unknown [id number] 2.16.840.1.397019.3.579.2 .173 1973 Unknown [id number] 2.16.840.1.823192.3.579.2 .173 1973 Unknown [id number] 2.16.840.1.750764.3.579.2 .173 1973 Unknown [id number] 2.16.840.1.767160.3.579.2 .173 1973 Unknown [id number] 2.16.840.1.826121.3.579.2 .173 1973 Unknown [id number] 2.16.840.1.984503.3.579.2 .1973 Unknown [id number] 2.16.840.1.088226.3.579.2 .1973 Unknown [id number] 2.16.840.1.509542.3.579.2 .1973 Unknown [id number] 2.16.840.1.093608.3.579.2 .1973 Unknown [id number] 2.16.840.1.383734.3.579.2 .1973 Unknown [id number] 2.16.840.1.337748.3.579.2 .173 1973 Unknown [id number] 2.16.840.1.517332.3.579.2 .173 1973 Unknown [id number] 2.16.840.1.481576.3.579.2 .173 1973 Unknown [id number] 2.16.840.1.105924.3.579.2 .1973 Unknown [id number] 2.16.840.1.322654.3.579.2 .173 1973 Unknown [id number] 2.16.840.1.307046.3.579.2 .1973 Unknown [id number] 2.16.840.1.139076.3.579.2 .173 1973 Unknown [id number] 2.16.840.1.646731.3.579.2 .173 1973 Unknown [id number] 2.16.840.1.863641.3.579.2 .1973 Unknown [id number] 2.16.840.1.558965.3.579.2 .173 1973 Unknown [id number] 2.16.840.1.725423.3.579.2 .1973 Unknown [id number] 2.16.840.1.071772.3.579.2 .1973 Unknown [id number] 2.16.840.1.083589.3.579.2 .1973 Unknown [id number] 2.16.840.1.505894.3.579.2 .1973 Unknown [id number] 2.16.840.1.604842.3.579.2 .1973 Unknown [id number] 2.16.840.1.706913.3.579.2 .1973 Unknown [id number] 2.16.840.1.980869.3.579.2 .1973 Unknown [id number] 2.16.840.1.854921.3.579.2 .173 1973 Unknown [id number] 2.16.840.1.431932.3.579.2 .173 1973 Unknown [id number] 2.16.840.1.544968.3.579.2 .1973 Unknown [id number] 2.16.840.1.848530.3.579.2 .1973 Unknown [id number] 2.16.840.1.441239.3.579.2 .1973 Unknown [id number] 2.16.840.1.170606.3.579.2 .173 1973 Unknown [id number] 2.16.840.1.251773.3.579.2 .173 1973 Unknown [id number] 2.16.840.1.116833.3.579.2 .175 1973 Unknown [id number] 2.16.840.1.313419.3.579.2 .175 1973 Unknown [id number] 2.16.840.1.284137.3.579.2 .175 1973 Unknown [id number] 2.16.840.1.773876.3.579.2 .175 1973 Unknown [id number] 2.16.840.1.026594.3.579.2 .175 1973 Unknown [id number] 2.16.840.1.035298.3.579.2 .175 1973 Unknown [id number] 2.16.840.1.801582.3.579.2 .175 1959 Unknown [id number] 1.2.840.981764.1.13.239.2 .7.3.868848.315 Unknown [id number] 2.16.840.1.530679.3.579.2 .531 Unknown [id number] 2.16.840.1.169609.3.579.2 .531 Unknown [id number] 2.16.840.1.959964.3.579.2 .531 Unknown [id number] 2.16.840.1.936798.3.579.2 .531 Social History Date Type Detail Facility Start: 07-13-2019 End: 09-07-2024 Tobacco smoking status NVIS Current every day smoker [facility] History of tobacco use Cigarette Smoker [place], [place] Start: 07-13-2019 End: 09-14-2024 Cigarettes smoked current (pack per day) - Reported [facility] Start: 07-13-2019 End: 09-14-2024 Alcohol intake No [employer] Start: 1975 Sex Assigned At Not on file M [place], [place] Start: 07-26-2019 End: 01-17-2025 Alcohol intake Current non-drinker of alcohol (finding) [place], [place] Start: 06-24-2020 End: 09-07-2024 Tobacco use and exposure Never used [place] Start: 07-27-2022 End: 12-08-2022 Exposure to SARS-CoV-2 (event) Not sure [place] Start: 03-18-2021 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 Never [employer] How many standard drinks containing alcohol do you have on a typical day? Patient does not drink [employer] (I/We) worried wheth er (my/our) food would run out before (I/we) got money to buy more. DK or Refused [employer] Has the electric, [employer], oil, or water company threatened to shut off services in your home in past 12Mo No [employer] (I/We) worried wheth er (my/our) food would run out before (I/we) got money to buy more. Never true [employer] Start: 11-05-2012 Sex Female (finding) [facility] Start: 01-01-2025 Gender identity Identifies as female gender (finding) [employer] Medical Equipment Procedure Code Equipment Code Equipment Origin al Text Equipment Identifier Dates 1 each by Does n ot apply route 5 times daily [id number] Start: 2019 Pin Fix Fidelia Pt 2 End 564x9 In Smooth Ss Str Monica - [id number] Start: 07-23-2024 K Wire Fix L6in Dia1.6mm St S Stl 3 Side Dbl Trcr Both End - [id number])[id number] 5, [id number] FDA Start: 07-23-2024 K Wire Fix L6in Dia1.6mm St S Stl 3 Side Dbl Trcr Both End - [id number] 4, [id number] FDA Start: 07-23-2024 Pin Fix Fidelia Pt 1 End x9 In Thrd Ss Ns Steinmann - [id number] Start: 07-23-2024 Graft Bone Sub 5 cc Pure Allosync - [id number] Start: 09-14-2024 Comment on above: Description: [id number] Graft Bone Sub 2.5cc Allos[employer] Pure - [id number] Start: 09-14-2024 Comment on above: Description: [id number] l Hi Compr G-Beam Fus Beaming Sys - [id number] Start: 09-14-2024 Screw Bne Fusion Lg 7.4x70 Mm Ss Strl G-Beam - [id number] Start: 09-14-2024 Screw Bne Fusion Sm 5.4x80 Mm Ss Strl G-Beam - [id number] Start: 09-14-2024 Screw Bne Fusion Sm 5.4x120 Mm Ss Strl G-Beam - [id number] Start: 09-14-2024 Screw Bne Fusion Sm 5.4x120 Mm Ss Strl G-Beam - [id number] Start: 09-14-2024 Clinical Notes 12-04-2020 to 01-29-2025 Karrie Valadez - 01/29/2025 10:45 AM EDKarrie Anaya - 01/22/2025 11:30 AM EDKarrie Anaya - 01/22/2025 11:30 AM Makayla Mahoney PTA - 01/17/2025 2:45 PM EDTDischarge InstructionsAttachments Note Date & Type Note Facility 01-29-2025 History of Present illness Narrative [facility] Inpatient/Observation/Outpatient Rehabilitation Date: 01/29/2025 Patient Name: Risa Warner [] Inpatient Acute/Observation [x] Outpatient : 1975 [] Pt refused/declined therapy at this time due to: [] Pt cancelled due to: [] No Reason Given [x] Sick/ill [] Other: [] Evaluation held by RN/Provider/Physical Therapist due to: [] High Heart Rate [] High Blood Pressure [] Orthopedic Consult [] Hgb < 7 [] Other: [] Pt ordered brace per physician request: [] Proper fit will be completed and education for wearing/skin checks [] Pt does not require skilled services due to: Therapist/Precipitator Supervisor will attempt to see this patient, at our earliest opportunity. Karrie Valadez Date: 01/29/2025 Cosigned by Vineet Block, PT at 01/29/2025 8:19 AM EDT documented in this encounter Bon [facility] 01-22-2025 History of Present illness Narrative [facility] Inpatient/Observation/Outpatient Rehabilitation Date: 01/22/2025 Patient Name: Risa Warner [] Inpatient Acute/Observation [x] Outpatient : 1975 [] Pt refused/declined therapy at this time due to: [x] Pt cancelled due to: [x] No Reason Given [] Sick/ill [] Other: [] Evaluation held by RN/Provider/Physical Therapist due to: [] High Heart Rate [] High Blood Pressure [] Orthopedic Consult [] Hgb < 7 [] Other: [] Pt ordered brace per physician request: [] Proper fit will be completed and education for wearing/skin checks [] Pt does not require skilled services due to: Therapist/Precipitator Supervisor will attempt to see this patient, at our earliest opportunity. Karrie Valadez Date: 01/22/2025 Cosigned by Hussein Rich PTA at 01/22/2025 7:40 AM EDT [facility] Inpatient/Observation/Outpatient Rehabilitation Date: 01/24/2025 Patient Name: Risa Warner [] Inpatient Acute/Observation [x] Outpatient : 1975 [] Pt refused/declined therapy at this time due to: [x] Pt cancelled due to: [] No Reason Given [x] Sick/ill [] Other: [] Evaluation held by RN/Provider/Physical Therapist due to: [] High Heart Rate [] High Blood Pressure [] Orthopedic Consult [] Hgb < 7 [] Other: [] Pt ordered brace per physician request: [] Proper fit will be completed and education for wearing/skin checks [] Pt does not require skilled services due to: Therapist/Precipitator Supervisor will attempt to see this patient, at our earliest opportunity. Karrie Valadez Date: 01/24/2025 Cosigned by Alanna Chappell PTA at 01/24/2025 9:24 AM EDT documented in this encounter Bon [facility] 01-17-2025 History of Present illness Narrative Physical Therapy [facility] Outpatient Physical Therapy Daily Note Patient: Risa Warner : 1975 CSN #: [id number] Referring Physician: Meera Mike DPM Date: 01/17/2025 Treatment Diagnosis: s/p L Lisfranc injury with beam placement, L foot pain Onset Date: 07/13/24 PT Insurance Information: [employer] [address] Total # of Visits Approved: 22 Per Physician Order Total # of Visits to Date: 12 No Show: 0 Canceled Appointment: 2 02/08/25 Plan of Care/Recert Due Pre-Treatment Pain: 5/10 Subjective: Pt rates pain 5/10 in L knee. Pt notes she has been limited with HEP at home d/t feeling ill and having some increased B knee pain. Pt states she had some increased pain and soreness following last therapy session. Pt notes she has been having increased tension on R calf region. Exercises: Exercise 6: rockerboard 3 way with focus on motion of ankle x20 Exercise 7: standing slantboard 3 x 30 seconds both gastroc/soleus Exercise 8: Runners stretch position HR 2x15 Exercise 9: rivits on green pad x12 Exercise 10: Seated HR with hold 3 sec x15 Exercise 11: Scitfit L1 x 6 minutes Exercise 12: 150 ftx2 with shoe donned focus on gait mechanics with SP cane Assessment Assessment: Pt required cues HR to avoid trunk swaying compensations, trialed runners stretch position HR pt unable to lift L heel off the floor, cues given to avoid knee flexion compensations. Therapist cueing pt with gait throughout therapy session to focusing on heel strike and toe push off in stance phase, increasing R step length, increasing step width and using SP cane for improving balance and focusing on correcting gait deviations. Pt limited throughout therapy session with HR height d/t weakness in gastroc/soleus. Pt left therapy session with no concerns. Activity Tolerance Activity Tolerance: Patient tolerated treatment well, Patient limited by endurance Patient Education Patient Education: Educated pt to use SP cane at home when ambulating with cam boot doffed, for focusing on proper gait mechanics. Pt verbalized/demonstrated good understanding: [x] Yes [] No, pt required further clarification. Post Treatment Pain: 10 Plan Plan Frequency: 2 Plan weeks: 6 Goals (Total # of Visits to Date: 12) Short Term Goals Time Frame for Short Term Goals: 3 weeks Short Term Goal 1: Patient will be initiated with a HEP -MET Short Term Goal 2: Patient will tolerate exercise without increased pain or symptoms.-met Prison Goals Time Frame for Clinical Assistant Goals : 6 weeks Prison Goal 1: Patient will be independent and compliant with a HEP - progressing Clinical Assistant Goal 2: Patient will improve bilateral ankle dorsiflexion ROM to >7* for ambulation. MET- 10 degrees left DF (01/08/2025) Clinical Assistant Goal 3: Patient will improve L ankle strength to >/= 4/5 in all planes to improve stability with ambulation. progressing (01/08/2025) left DF: 4/5, PF: 4/5:,Inv 4/5:, Evr: 4-/5, pain with planterflexion and eversion Clinical Assistant Goal 4: Patient will be able to hold SLS for 30 seconds without LOB: unable to fully WB on LLE due to instability - not able to attempt yet at this time Clinical Assistant Goal 5: Patient will report 70% improvement in overall symptoms and function. Minutes Tracking: Time In: 1446 Time Out: 1531 Minutes: 45 Timed Code Treatment Minutes: 43 Minutes Makayla Lozoya PTA Date: 01/17/2025 Cosigned by Vineet Matos, PT at 01/17/2025 4:34 PM EDT documented in this encounter [facility] 01-14-2025 History of Present illness Narrative [facility] Inpatient/Observation/Outpatient Rehabilitation Date: 01/14/2025 Patient Name: Risa Warner [] Inpatient Acute/Observation [x] Outpatient : 1975 [] Pt refused/declined therapy at this time due to: [x] Pt cancelled due to: [] No Reason Given [x] Sick/ill [] Other: [] Evaluation held by RN/Provider/Physical Therapist due to: [] High Heart Rate [] High Blood Pressure [] Orthopedic Consult [] Hgb < 7 [] Other: [] Pt ordered brace per physician request: [] Proper fit will be completed and education for wearing/skin checks [] Pt does not require skilled services due to: Therapist/Precipitator Supervisor will attempt to see this patient, at our earliest opportunity. Karrie Valadez Date: 01/14/2025 Cosigned by Makayla Lozoya PTA at 01/14/2025 8:36 AM EDT documented in this encounter Bon [facility] 01-08-2025 History of Present illness Narrative Physical Therapy [facility] Outpatient Physical Therapy Daily Note Patient: Risa Warner : 1975 CSN #: [id number] Referring Physician: Meera Mike DPM Date: 01/08/2025 Treatment Diagnosis: s/p L Lisfranc injury with beam placement, L foot pain Onset Date: 07/13/24 PT Insurance Information: [employer] [address] Total # of Visits Approved: 12 Per Physician Order Total # of Visits to Date: 10 No Show: 0 Canceled Appointment: 1 01/11/25 Plan of Care/Recert Due Pre-Treatment Pain: 05/05 Subjective: Reports pain in right ankle and knee 05/05, reports more pain today. Unsure of why knee and ankle are more painful today, beleives it is from weather. Reports she only wears boot when she is outside. Exercises: Exercise 1: HEP: ankle pumps x20, inversion/eversion ROM x20, towel curls x20, L SLR x6 Exercise 2: standing heel and toe raises x15//sink exercise 1 UE support Exercise 4: sidestepping 2 x 30 ft Exercise 6: rockerboard F/B , side/side 15x, baps board lvl 1 x15 ea Exercise 7: standing slantboard 3 x 30 seconds both gastroc/soleus Exercise 10: standing marching, hip abd/ext, HS curls 15x BLEs // mini squats z20--crfk shoe donned 1 UE support Exercise 11: seated heel slides 15x Exercise 13: FSU 10x eac leg 6 Exercise 14: staggered stance SLS on steps 3 x 30 seconds bilat 1 UE Exercise 15: air ex tandem, rhomberg 2 x 30 seconds each Assessment Body Structures, Functions, Activity Limitations Requiring Skilled Therapeutic Intervention: Decreased functional mobility , Decreased ADL status, Decreased ROM, Decreased strength, Decreased endurance, Decreased balance, Decreased high-level IADLs, Increased pain Assessment: Ther ex completed with focus on left ankle strength and stability to improve functional mobility for ADLS. Notable instaiblity in left ankle in stance with SLS, modifed with staggered stance with less movement in frontal plane but still present. Added other balance-focus excercises to improve left ankle stability on even and uneven terrain.Patient is very unstable in left ankle on ocmpliant surfaces, vc on proper balance strategies with fair carryover. 2x lateral and retro LOB with sidestepping and required CGA for safety. Would benefit continuing with PT to focus on left ankle functional strength and stability. UPOC completed by Vineet Morales PT. Activity Tolerance Activity Tolerance: Patient tolerated treatment well, Patient limited by endurance Patient Education Patient Education: HEP Pt verbalized/demonstrated good understanding: [x] Yes [] No, pt required further clarification. Post Treatment Pain: 03/05 Plan Plan Frequency: 2 Plan weeks: 6 Goals (Total # of Visits to Date: 10) Short Term Goals Short Term Goal 2: Patient will tolerate exercise without increased pain or symptoms.-met Clinical Assistant Goals Time Frame for Prison Goals : 6 weeks Clinical Assistant Goal 1: Patient will be independent and compliant with a HEP Prison Goal 2: Patient will improve bilateral ankle dorsiflexion ROM to >7* for ambulation. MET- 10 degrees left DF (01/08/2025) Prison Goal 3: Patient will improve L ankle strength to >/= 4/5 in all planes to improve stability with ambulation. progressing (01/08/2025) left DF: 4/5, PF: 4/5:,Inv 4/5:, Evr: 4-/5, pain with planterflexion and eversion Clinical Assistant Goal 4: Patient will be able to hold SLS for 30 seconds without LOB: unable to fully WB on LLE due to instability Prison Goal 5: Patient will report 70% improvement in overall symptoms and function. Minutes Tracking: Time In: 1432 Time Out: 1512 Minutes: 40 Timed Code Treatment Minutes: 40 Minutes Hussein Rich PTA Date: 01/08/2025 Cosigned by Vineet Matos, PT at 01/08/2025 3:24 PM EDT documented in this encounter [facility] 12-31-2024 History of Present illness Narrative [facility] Outpatient Physical Therapy Daily Note Patient: Risa Warner : 1975 CSN #: [id number] Referring Physician: Meera Mike DPM Date: 12/31/2024 Treatment Diagnosis: s/p L Lisfranc injury with beam placement, L foot pain Onset Date: 07/13/24 PT Insurance Information: [employer] [address] Total # of Visits Approved: 12 Per Physician Order Total # of Visits to Date: 8 No Show: 0 Canceled Appointment: 1 01/11/25 Plan of Care/Recert Due Pre-Treatment Pain: 6/10 Subjective: Pt reports 7/10 L knee pain, 6/10 L foot pain. Pt states her dorsum surafce of her L foot has become more sensitive for the past couple of days. Continues with increased calf tightness. Exercises: Exercise 2: standing heel and toe raises x15//sink exercise Exercise 4: towel scrunches 15x, short foot x 15 Exercise 5: ankle inversion/eversion towel slides 15x Exercise 6: rockerboard F/B , side/side 15x, baps board lvl 1 x15 ea Exercise 7: calf towel stretch 3 x 30 seconds both gastroc/soleus Exercise 8: ankle circles 15x CW/CCW, ABCS 1x, 4 way ankle Green tb x15 (no 4 way ankle) Exercise 10: standing marching, hip abd/ext, HS curls 15x BLEs // mini squats u92--vwzy shoe donned Exercise 11: seated heel slides 15x Exercise 12: x2 laps with shoe donned Manual: Soft Tissue Mobilizaton: Scar tissue massage to incisions, STM to calf and arroyo mm, STR to plantar fascia--STM to calf/knee area Assessment Assessment: Pt was able to complete baps board this date in all direction with pain reported with performance. Pt brought shoe for session, x2 laps of ambulation complete with mild unsteadiness and antalgic gait pattern noted. Pt states that she feels more stable with her shoe but still feels off balance at times. STM performed on calf/knee area d/t increased tightness. Activity Tolerance Activity Tolerance: Patient tolerated treatment well Patient Education Patient Education: HEP Pt verbalized/demonstrated good understanding: [x] Yes [] No, pt required further clarification. Post Treatment Pain: 03/05 Plan Plan Frequency: 2 Plan weeks: 6 Goals (Total # of Visits to Date: 8) Short Term Goals Time Frame for Short Term Goals: 3 weeks Short Term Goal 1: Patient will be initiated with a HEP -MET Short Term Goal 2: Patient will tolerate exercise without increased pain or symptoms.-met Prison Goals Time Frame for Clinical Assistant Goals : 6 weeks Prison Goal 1: Patient will be independent and compliant with a HEP Prison Goal 2: Patient will improve bilateral ankle dorsiflexion ROM to >7* for ambulation. MET- 10 degrees left DF this date after manual (12/19/2024) Prison Goal 3: Patient will improve L ankle strength to >/= 4/5 in all planes to improve stability with ambulation. Prison Goal 4: Patient will be able to hold SLS for 30 seconds without LOB Clinical Assistant Goal 5: Patient will report 70% improvement in overall symptoms and function. Minutes Tracking: Time In: 1245 Time Out: 1330 Minutes: 45 Alanna Chappell PTA Date: 12/31/2024 Cosigned by Vineet Matos, PT at 12/31/2024 6:53 PM EDT documented in this encounter [facility] 12-24-2024 History of Present illness Narrative [facility] Outpatient Physical Therapy Daily Note Patient: Risa Warner : 1975 CSN #: [id number] Referring Physician: Meera Mike DPM Date: 12/24/2024 Treatment Diagnosis: s/p L Lisfranc injury with beam placement, L foot pain Onset Date: 07/13/24 PT Insurance Information: [address] Total # of Visits Approved: 12 Per Physician Order Total # of Visits to Date: 7 No Show: 0 Canceled Appointment: 1 01/11/25 Plan of Care/Recert Due Pre-Treatment Pain: 8-9/10 Subjective: Pt reports 8/10 L ankle pain and 9/10 L knee pain, reports her R ankle with discomfort of 6-7/10 pain. States that she has had some discomfort over the weekend. Exercises: Exercise 2: standing heel and toe raises x15 Exercise 3: toes flexion/ext 15x, toe spread x15 Exercise 4: towel scrunches 15x, short foot x 15 Exercise 6: rockerboard F/B , side/side 15x, attempt baps board x5 reps--rockerboard this date Exercise 9: Seated LAQ, adduction, HS curl [place] tband 15x ea, marching 15x Exercise 10: standing marching, hip abd/ext, HS curls 15x BLEs // mini squats x15 Exercise 11: seated heel slides 15x Manual: Soft Tissue Mobilizaton: Scar tissue massage to incisions, STM to calf and arroyo mm, STR to plantar fascia Other: PROM to ankle as tolerated Assessment Assessment: Continued with charted therex with increase tightness/pain this date. Pt with difficulty of towel scrunch d/t having a hard time with toe moevement. Continued with STM of calf/foot with mild relief post session. Continue to progress as tolerated. Activity Tolerance Activity Tolerance: Patient tolerated treatment well Patient Education Patient Education: HEP Pt verbalized/demonstrated good understanding: [x] Yes [] No, pt required further clarification. Post Treatment Pain: 6-7/10 Plan Plan Frequency: 2 Plan weeks: 6 Goals (Total # of Visits to Date: 7) Short Term Goals Time Frame for Short Term Goals: 3 weeks Short Term Goal 1: Patient will be initiated with a HEP -MET Short Term Goal 2: Patient will tolerate exercise without increased pain or symptoms.-Progressing Prison Goals Time Frame for Clinical Assistant Goals : 6 weeks Prison Goal 1: Patient will be independent and compliant with a HEP Clinical Assistant Goal 2: Patient will improve bilateral ankle dorsiflexion ROM to >7* for ambulation. MET- 10 degrees left DF this date after manual (12/19/2024) Prison Goal 3: Patient will improve L ankle strength to >/= 4/5 in all planes to improve stability with ambulation. Prison Goal 4: Patient will be able to hold SLS for 30 seconds without LOB Prison Goal 5: Patient will report 70% improvement in overall symptoms and function. Minutes Tracking: Time In: 1245 Time Out: 1330 Minutes: 45 Alanna Chappell PTA Date: 12/24/2024 Cosigned by Vineet Matos PT at 12/24/2024 7:25 PM EDT documented in this encounter [facility] 12-19-2024 History of Present illness Narrative Physical Therapy [facility] Outpatient Physical Therapy Daily Note Patient: Risa Warner : 1975 CSN #: [id number] Referring Physician: Meera Mike DPM Date: 12/19/2024 Treatment Diagnosis: s/p L Lisfranc injury with beam placement, L foot pain Onset Date: 07/13/24 PT Insurance Information: [address] Total # of Visits Approved: 12 Per Physician Order Total # of Visits to Date: 6 No Show: 0 Canceled Appointment: 1 01/11/25 Plan of Care/Recert Due Pre-Treatment Pain: 5/10 Subjective: Pt reports less pain in ankle today, reports cramping in back of ankle near achilles tendon. Reports less knee pain 4-5/10. reports she wears slippers at home, does not feel comfortable with shoe yet. Exercises: Exercise 2: standing heel and toe raises x15 Exercise 3: toes flexion/ext 15x, toe spread x10 Exercise 4: towel scrunches 15x, short foot x 15 Exercise 5: ankle inversion/eversion towel slides 15x Exercise 6: rockerboard F/B 15x, attempt baps board x5 reps Exercise 7: calf towel stretch 3 x 30 seconds both gastroc/soleus Exercise 9: Seated LAQ, adduction, HS curl [place] tband 10x ea, marching 15x Exercise 10: standing marching, hip abd/ext, HS curls 15x BLEs Exercise 11: seated heel slides 15x Manual: Soft Tissue Mobilizaton: Scar tissue massage to incisions, STM to calf and arroyo mm, STR to plantar fascia Other: PROM to ankle as tolerated Assessment Body Structures, Functions, Activity Limitations Requiring Skilled Therapeutic Intervention: Decreased functional mobility , Decreased ADL status, Decreased ROM, Decreased strength, Decreased endurance, Decreased balance, Decreased high-level IADLs, Increased pain Assessment: Added seated heel slides and standing ther ex for left ankle and hip ROM. Pt reports mdoerate discomfort in weightbearing at lateral left calf today, spent mdoerate time with DT/STM to left lateral calf with TrP release to improve tissue extensibility and reduce pain levels and tightness in WB. Reports improved calf pain after with imrpoved left ankle DF ROM today of 10 degrees. Activity Tolerance Activity Tolerance: Patient tolerated treatment well Patient Education Patient Education: HEP Pt verbalized/demonstrated good understanding: [x] Yes [] No, pt required further clarification. Post Treatment Pain: 2/10 Left LE in weightbearing Plan Plan Frequency: 2 Plan weeks: 6 Goals (Total # of Visits to Date: 6) Short Term Goals Time Frame for Short Term Goals: 3 weeks Short Term Goal 1: Patient will be initiated with a HEP -MET Short Term Goal 2: Patient will tolerate exercise without increased pain or symptoms.-Progressing Clinical Assistant Goals Time Frame for Clinical Assistant Goals : 6 weeks Clinical Assistant Goal 1: Patient will be independent and compliant with a HEP Clinical Assistant Goal 2: Patient will improve bilateral ankle dorsiflexion ROM to >7* for ambulation. MET- 10 degrees left DF this date after manual (12/19/2024) Clinical Assistant Goal 3: Patient will improve L ankle strength to >/= 4/5 in all planes to improve stability with ambulation. Prison Goal 4: Patient will be able to hold SLS for 30 seconds without LOB Clinical Assistant Goal 5: Patient will report 70% improvement in overall symptoms and function. Minutes Tracking: Time In: 1338 Time Out: 1439 Minutes: 61 Timed Code Treatment Minutes: 61 Minutes Hussein Rich PTA Date: 12/19/2024 Cosigned by Sonia Baum, PT at 12/19/2024 3:21 PM EDT documented in this encounter [facility] 12-17-2024 History of Present illness Narrative Physical Therapy [facility] Inpatient/Observation/Outpatient Rehabilitation Date: 12/17/2024 Patient Name: Risa Warner [] Inpatient Acute/Observation [x] Outpatient : 1975 Plan of Care/Recert ends [] Pt refused/declined therapy at this time due to: [x] Pt cancelled due to: [] No Reason Given [x] Sick/ill [] Other: [] Evaluation held by RN/Provider/Physical Therapist due to: [] High Heart Rate [] High Blood Pressure [] Orthopedic Consult [] Hgb < 7 [] Other: [] Pt ordered brace per physician request: [] Proper fit will be completed and education for wearing/skin checks [] Pt does not require skilled services due to: Therapist/Precipitator Supervisor will attempt to see this patient, at our earliest opportunity. Maxim Garcia Date: 12/17/2024 Cosigned by Alanna Chappell PTA at 12/17/2024 8:50 AM EDT documented in this encounter [facility] 12-05-2024 History of Present illness Narrative Physical Therapy [facility] Outpatient Physical Therapy Daily Note Patient: Risa Warner : 1975 CSN #: [id number] Referring Physician: Meera Mike DPM Date: 12/05/2024 Treatment Diagnosis: s/p L Lisfranc injury with beam placement, L foot pain Onset Date: 07/13/24 PT Insurance Information: [address] Total # of Visits Approved: 12 Per Physician Order Total # of Visits to Date: 3 No Show: 0 Canceled Appointment: 1 01/11/25 Plan of Care/Recert Due Pre-Treatment Pain: 7/10 Subjective: Pt rates pain 7/10 in foot this date. Pt notes she has not been wearing cam boot in home with minimal pain but notes L knee is holding her back d/t pain. Pt notes she was sore following last therapy session but felt good the following day. Exercises: Exercise 2: seated heel and toe raises x15 Exercise 3: toes flexion/ext 15x Exercise 4: towel scrunches 15x Exercise 5: ankle inversion/eversion towel slides 15x Exercise 6: rockerboard F/B 15x, attempt baps board x5 reps Exercise 8: ankle circles 15x CW/CCW, ABCS 1x, 4 way ankle [place] x15 Exercise 9: standing runners stretch gastroc 10 sec x10 Exercise 10: standing weight shifts fwd/lat x10 ea Manual: Other: Ankle PROM PF/DF/IN/EV gentle Assessment Assessment: Pt AROM L ankle DF 1 deg, PROM L ankle DF 7 deg. Started session with manual therapy for decreasing tension and improving ROM, therapist noting decreased edema this date. TCs provided during ankle EV/IN with resistance to reduce hip rotation compensations. Attempted gentle Weight shifts in standing this date, pt limited d/t pain in knee joint. Activity Tolerance Activity Tolerance: Patient tolerated treatment well, Patient limited by pain Patient Education Patient Education: Educated pt to continue use of cam boot with ambulation d/t lack of ankle stability/strength. Pt verbalized/demonstrated good understanding: [x] Yes [] No, pt required further clarification. Post Treatment Pain: 8/10 Plan Plan Frequency: 2 Plan weeks: 6 Goals (Total # of Visits to Date: 3) Short Term Goals Time Frame for Short Term Goals: 3 weeks Short Term Goal 1: Patient will be initiated with a HEP -MET Short Term Goal 2: Patient will tolerate exercise without increased pain or symptoms.-Progressing Clinical Assistant Goals Time Frame for Prison Goals : 6 weeks Clinical Assistant Goal 1: Patient will be independent and compliant with a HEP Prison Goal 2: Patient will improve bilateral ankle dorsiflexion ROM to >7* for ambulation. Prison Goal 3: Patient will improve L ankle strength to >/= 4/5 in all planes to improve stability with ambulation. Prison Goal 4: Patient will be able to hold SLS for 30 seconds without LOB Clinical Assistant Goal 5: Patient will report 70% improvement in overall symptoms and function. Minutes Tracking: Time In: 1432 Time Out: 1515 Minutes: 43 Timed Code Treatment Minutes: 40 Minutes Makayla Lozoya PTA Date: 12/05/2024 Cosigned by Vineet Matos, PT at 12/05/2024 7:38 PM EDT documented in this encounter [facility] 12-03-2024 History of Present illness Narrative Physical Therapy [facility] Outpatient Physical Therapy Daily Note Patient: Risa Warner : 1975 CSN #: [id number] Referring Physician: Meera Mike DPM Date: 12/03/2024 Treatment Diagnosis: s/p L Lisfranc injury with beam placement, L foot pain Onset Date: 07/13/24 PT Insurance Information: [address] Total # of Visits Approved: 12 Per Physician Order Total # of Visits to Date: 2 No Show: 0 Canceled Appointment: 1 01/11/25 Plan of Care/Recert Due Pre-Treatment Pain: 5/10 Subjective: Patient reports 5/10 pain in left foot and 7/10 pain in left knee. Report most of her pain is in her knee when ambulating. Exercises: Exercise 2: seated heel and toe raises x15 Exercise 3: toes flexion/ext 15x Exercise 4: towel scrunches 15x Exercise 5: ankle inversion/eversion towel slides 15x Exercise 6: rockerboard F/B 15x Exercise 7: calf towel stretch 3 x 30 seconds both gastroc/soleus Exercise 8: ankle circles 15x CW/CCW, ABCS 1x Manual: Other: Ankle PROM PF/DF/IN/EV gentle Assessment Treatment focused on ankle AROM in seated and longsitting d/t increased pain with WBing. Pt arrived to treatment wearing camboot and hinged knee brace. Pt limited with HR/TR d/t pain and lack of mobility. Therapist provided TC/VC with longsitting EV/IR to avoid hip compensations. Therapist noting firm end feel with EV/IR. Activity Tolerance Activity Tolerance: Patient tolerated treatment well, Patient limited by pain Patient Education Educated pt to use CP for swelling and pain as needed. Educated pt to wear cam boot with ambulation around home with increased pain and decreased stabiltiy. Pt verbalized/demonstrated good understanding: [x] Yes [] No, pt required further clarification. Post Treatment Pain: 11/05 Plan Plan Frequency: 2 Plan weeks: 6 Goals (Total # of Visits to Date: 2) Short Term Goals Time Frame for Short Term Goals: 3 weeks Short Term Goal 1: Patient will be initiated with a HEP -MET Short Term Goal 2: Patient will tolerate exercise without increased pain or symptoms.-Progressing Clinical Assistant Goals Time Frame for Prison Goals : 6 weeks Prison Goal 1: Patient will be independent and compliant with a HEP Prison Goal 2: Patient will improve bilateral ankle dorsiflexion ROM to >7* for ambulation. Clinical Assistant Goal 3: Patient will improve L ankle strength to >/= 4/5 in all planes to improve stability with ambulation. Prison Goal 4: Patient will be able to hold SLS for 30 seconds without LOB Prison Goal 5: Patient will report 70% improvement in overall symptoms and function. Minutes Tracking: Time In: 1230 Time Out: 1316 Minutes: 46 Timed Code Treatment Minutes: 42 Minutes Makayla Lozoya PTA Date: 12/03/2024 Cosigned by Vineet Matos, PT at 12/03/2024 1:41 PM EDT documented in this encounter [facility] 11-29-2024 History of Present illness Narrative Physical Therapy [facility] Inpatient/Observation/Outpatient Rehabilitation Date: 11/29/2024 Patient Name: Risa Warner [] Inpatient Acute/Observation [x] Outpatient : 1975 Plan of Care/Recert ends [] Pt refused/declined therapy at this time due to: [x] Pt cancelled due to: [] No Reason Given [] Sick/ill [x] Other: can't even walk on her leg [] Evaluation held by RN/Provider due to: [] High Heart Rate [] High Blood Pressure [] Orthopedic Consult [] Hgb < 7 [] Other: [] Pt ordered brace per physician request: [] Proper fit will be completed and education for wearing/skin checks [] Pt does not require skilled services due to: Therapist/Precipitator Supervisor will attempt to see this patient, at our earliest opportunity. Maxim Garcia Date: 11/29/2024 Cosigned by Alanna Chappell PTA at 11/29/2024 8:47 AM EST documented in this encounter [facility] 09-15-2024 History of Present illness Narrative [facility] Occupational Therapy Evaluation Date: 09/15/24 Patient Name: Risa Warner Room: Account: [id number] : 1975 (49 y.o.) Gender: female Discharge Recommendations: The patient's needs are being met with no further Occupational Therapy recommended at discharge. OT Equipment Recommendations Other: TBD Referring Practitioner: Urbano Merino DPM Treatment Diagnosis: Impaired self-care status Past Medical History: has a past medical [...] other surgical history (09/2022); Colonoscopy (N/A, 12/08/2022); Colonoscopy (12/08/2022); Foot Closed Reduction (Left, 07/23/2024); Ankle surgery (Left, 07/23/2024); Foot surgery (Left, 09/14/2024); and Foot surgery (Left, 09/14/2024). Restrictions Restrictions/Precautions Restrictions/Precautions: Fall Risk, Surgical protocol, Weight Bearing (IV right wrist;posterior splint secured w/ katlyn wrap left LE) Activity Level: Up as Tolerated Required Braces or Orthoses?: Yes (posterior splint secured w/ katlyn wrap left LE) Implants Present? : (denies) Lower Extremity Weight Bearing Restrictions Left Lower Extremity Weight Bearing: Non Weight Bearing Vitals Vitals O2 Device: None (Room air) Subjective Comments: RN Angely galan'katherine OT/PT eval with PT Melissa Pain Pre-Pain: 8 Post-Pain: 8 Pain Location: Hip, Right, Left (left arroyo bone, bilateral hips) Pain Descriptor: Aching Pain Interventions: Repositioning Social/Functional History Social/Functional History Lives With: Spouse Type of Home: House Home Layout: Two level, Performs ADL's on one level, Able to Live on Main level with bedroom/bathroom Home Access: Stairs to enter without rails Entrance Stairs - Number of Steps: 3 ADALID to porch, 1 threshold into house, has cement slabs on side of steps has been proppin Bathroom Shower/Tub: Tub/Shower unit, Shower chair with back, Curtain (shower bench) Bathroom Toilet: Standard (sink next to toilet) Bathroom Equipment: Hand-held shower, Grab bars in shower, Tub transfer bench (suction cup grab bars) Bathroom Accessibility: Walker accessible Home Equipment: Walker - Rolling, Wheelchair - Manual, Crutches, Cane (knee scooter) Has the patient had two or more falls in the past year or any fall with injury in the past year?: Yes (4-5 falls in the last year due to syncope) Prior Level of Assist for ADLs: Needs assistance (assisted transfers into tub by spouse) Prior Level of Assist for Homemaking: Needs assistance (prior to injury, independent with cooking . assist with laundry due to in basement) Homemaking Responsibilities: No (prior to injury, independent with cooking . assist with laundry due to in basement) Prior Level of Assist for Ambulation: Independent household ambulator, with or without device (since injury has been utilizing knee scooter) Prior Level of Assist for Transfers: Independent Active Veneer Department Manager: No Patient's Veneer Department Manager Info: spouse or dtr Mode of Transportation: Car Type of Occupation: has not worked in 20 years IADL Comments: patient sleeps in flat bed Additional Comments: patient has chronic back pain and in pain management with reporting having spinal stimulator for 10 years with recent removal. Lives with . still works. Daughter lives local Objective ADL Feeding: Independent, Based on clinical judgement Grooming: Setup, Based on clinical judgement UE Bathing: Setup, Based on clinical judgement LE Bathing: Contact guard assistance, Based on clinical judgement UE Dressing: Setup, Based on clinical judgement LE Dressing: Contact guard assistance, Based on clinical judgement Putting On/Taking Off Footwear: Contact guard assistance Putting On/Taking Off Footwear Skilled Clinical Factors: Pt adjusts R sock at EOB with CGA for reaching Toileting: Contact guard assistance Toileting Skilled Clinical Factors: Pt voids on toilet and completes all aspects with CGA for dynamic standing balance and transfer Additional Comments: ADL scores based on skilled observations unless noted. Pt is limited by weightbearing status, weakness ,impaired balance, pain, and activity tolerance, impacting independence and safety with ADLs Hand Dominance Hand Dominance: Right Orientation Overall Orientation Status: Within Functional Limits Orientation Level: Oriented to situation, Oriented to person, Oriented to place, Oriented to time Cognition Overall Cognitive Status: WFL Sensation Overall Sensation Status: Impaired (patient reporting poly neuopathy and sciatic pain, B UEs/LEs neuropathy) Vision Vision: Impaired Vision Exceptions: Wears glasses at all times Hearing Hearing: Within functional limits UE Function LUE AROM (degrees) LUE AROM : WFL (Frozen shoulder but full ROM) Left Hand AROM (degrees) Left Hand AROM: WFL Tone LUE LUE Tone: Normotonic LUE Strength Gross LUE Strength: WFL L Hand General: 4/5 LUE Strength Comment: Grossly 4/5 RUE AROM (degrees) RUE AROM : WFL Right Hand AROM (degrees) Right Hand AROM: WFL Tone RUE RUE Tone: Normotonic RUE Strength Gross RUE Strength: WFL R Hand General: 4/5 RUE Strength Comment: Grossly 4/5 Fine Motor Skills/Coordination Coordination Movements Are Fluid And Coordinated: No Coordination and Movement Description: Fine motor impairments, Decreased speed, Decreased accuracy, Right UE, Left UE Bed Mobility Bed mobility Rolling to Right: Modified independent Supine to Sit: Modified independent Sit to Supine: Modified independent Scooting: Modified independent Bed Mobility Comments: HOB elevated. Pt IND at EOB Balance Balance Sitting Balance: Independent Standing Balance: Contact guard assistance Standing Balance Time: 2-4 mins Activity: functional mobility, transfers, ADLs Comment: Good standing balance with good maintenance of weightbearing precautions and use of RW Transfers Transfers Sit to stand: Contact guard assistance Stand to sit: Contact guard assistance Transfer Comments: Good BUE placement and technique Toilet Transfers Toilet - Technique: Ambulating Equipment Used: Standard toilet Toilet Transfer: Contact guard assistance Toilet Transfers Comments: Poor BUE placement with VC but pt does not trust grab bars around toilet. Functional Mobility Functional - Mobility Device: Rolling Walker Activity: To/from bathroom Assist Level: Contact guard assistance Functional Mobility Comments: CGA for safety. Pt moves quickly despite verbal cues but able to maintain NWB tatus 100% of the time Assessment Assessment Performance deficits / Impairments: Decreased functional mobility , Decreased ADL status, Decreased balance, Decreased fine motor control, Decreased coordination, Decreased posture, Decreased high-level IADLs Treatment Diagnosis: Impaired self-care status Prognosis: Good Decision Making: Medium Complexity Discharge Recommendations: Continue to assess pending progress Activity Tolerance Activity Tolerance: Patient Tolerated treatment well Safety Devices Type of Devices: All fall risk precautions in place, Call light within reach, Gait belt, Patient at risk for falls, Left in bed, Nurse notified, Bed alarm in place (BREANNA Au) Patient Education Patient Education Education Given To: Patient Education Provided: Role of Therapy, Plan of Care, Transfer Training, Mobility Training, Fall Prevention Strategies Education Provided Comments: Pt educated on fall prevention strategies with home set-up with Good carryover and no concerns. Education Method: Demonstration, Verbal Barriers to Learning: None Education Outcome: Continued education needed, Demonstrated understanding, Verbalized understanding Functional Outcome Measures [facility] Daily Activity - Inpatient How much help is needed for putting on and taking off regular lower body clothing?: A Little How much help is needed for bathing (which includes washing, rinsing, drying)?: A Little How much help is needed for toileting (which includes using toilet, bedpan, or urinal)?: A Little How much help is needed for putting on and taking off regular upper body clothing?: A Little How much help is needed for taking care of personal grooming?: A Little How much help for eating meals?: None [facility] Inpatient Daily Activity Raw Score: 19 [facility] Inpatient ADL T-Scale Score : 40.22 ADL Inpatient CMS 0-100% Score: 42.8 ADL Inpatient CMS G-Code Modifier : CK Goals Short Term Goals Time Frame for Short Term Goals: upon dc Short Term Goal 1: Pt will complete LB ADLs with ANDRES, Good safety, and use of AE/modified techniques as needed Short Term Goal 2: Pt will complete functional mobility/transfers with ANDRES, Good safety, and least restrictive device with full maintainence of NWB precautions Short Term Goal 3: Pt will tolerate 8+ mins of dynamic/static standing during therapeutic exercise/functional activity for improved activity tolerance Short Term Goal 4: Pt will verbalize/demonstrate Good understanding of AE/modified techniques/DME for increased independence and safety with self-care Short Term Goal 5: Pt will actively participate in 15+ mins of therapeutic exercise/functional activity for improved independence and safety with self-care Plan Occupational Therapy Plan Times Per Week: 4-6 Current Treatment Recommendations: Balance training, Functional mobility training, Endurance training, Pain management, Safety education & training, Patient/Caregiver education & training, Equipment evaluation, education, & procurement, Self-Care / ADL, Home management training, Coordination training OT Individual Minutes OT Individual Minutes Time In: 902 Time Out: 928 Minutes: 26 Time Code Minutes Timed Code Treatment Minutes: 11 Minutes Physical Therapy [facility] Physical Therapy Evaluation Date: 09/15/24 Patient Name: Risa Warner Room: - Account: [id number] : 1975 (49 y.o.) Gender: female Discharge Recommendations: Home w/ assist Past Medical History: has a past medical [...] other surgical history (09/2022); Colonoscopy (N/A, 12/08/2022); Colonoscopy (12/08/2022); Foot Closed Reduction (Left, 07/23/2024); Ankle surgery (Left, 07/23/2024); Foot surgery (Left, 09/14/2024); and Foot surgery (Left, 09/14/2024). Subjective Subjective Subjective: Pt voices no concerns with expected discharge later today. General Patient assessed for rehabilitation services?: Yes Additional Pertinent Hx: Per H & P note: Risa Warner is a 49 y.o. female seen at [facility] for postoperative pain. Patient is admitted postoperatively after undergoing external fixator removal, subtalar joint arthrodesis, midfoot arthrodesis. Patient is well-known to podiatry service for having undergone a midfoot dislocation initial date of injury was June 2024. She was found to have a closed dislocation/Lisfranc dislocation with concomitant Charcot midfoot arthropathy. She underwent open reduction to fixation of the Lisfranc complex dislocation and application of external fixator on 07/24/2024. She has been followed up closely outpatient. Past medical history includes uncontrolled type 2 diabetes mellitus, smoker, neuropathy, obesity, fibromyalgia, RSD. Past medical history and pertinent history unable to be obtained patient is in the PACU area under anesthesia. She is not in acute distress. Patient will be admitted for a 23-hour observation and likely discharge home with outpatient follow-up. Response To Previous Treatment: Not applicable Family/Caregiver Present: No Referring Practitioner: Dr. Magalis Merino Referral Date : 09/14/24 Diagnosis: Charcot ankle left Follows Commands: Within Functional Limits Other (Comment): OK per nurse Alexeitte to proceed w/ PT evaluation General General Comments: Pt had surgery on 09-14-[address] Krishan Mike for Procedures: Removal of external fixator, left ankle Arthrodesis of subtalar joint, left ankle Arthrodesis of multiple midfoot joints, left ankle Reduction of tarsal metatarsal fracture dislocation Application of 7.5 cc of Arthrex Allosync with PRP, left foot and ankle Pain Pre-Pain: 8 Post-Pain: 8 Pain Location: Hip, Right, Left (left arroyo bone, bilateral hips) Pain Descriptor: Aching Pain Interventions: Repositioning Social/Functional History Social/Functional History Lives With: Spouse Type of Home: House Home Layout: Two level, Performs ADL's on one level, Able to Live on Main level with bedroom/bathroom Home Access: Stairs to enter without rails Entrance Stairs - Number of Steps: 3 ADALID to porch, 1 threshold into house, has cement slabs on side of steps has been proppin Bathroom Shower/Tub: Tub/Shower unit, Shower chair with back, Curtain (shower bench) Bathroom Toilet: Standard (sink next to toilet) Bathroom Equipment: Hand-held shower, Grab bars in shower, Tub transfer bench (suction cup grab bars) Bathroom Accessibility: Walker accessible Home Equipment: Walker - Rolling, Wheelchair - Manual, Crutches, Cane (knee scooter) Has the patient had two or more falls in the past year or any fall with injury in the past year?: Yes (4-5 falls in the last year due to syncope) Prior Level of Assist for ADLs: Needs assistance (assisted transfers into tub by spouse) Prior Level of Assist for Homemaking: Needs assistance (prior to injury, independent with cooking . assist with laundry due to in basement) Homemaking Responsibilities: No (prior to injury, independent with cooking . assist with laundry due to in basement) Prior Level of Assist for Ambulation: Independent household ambulator, with or without device (since injury has been utilizing knee scooter) Prior Level of Assist for Transfers: Independent Active Veneer Department Manager: No Patient's Veneer Department Manager Info: spouse or dtr Mode of Transportation: Car Type of Occupation: has not worked in 20 years IADL Comments: patient sleeps in flat bed Additional Comments: patient has chronic back pain and in pain management with reporting having spinal stimulator for 10 years with recent removal. Lives with . still works. Daughter lives local Restrictions Restrictions/Precautions Restrictions/Precautions: Fall Risk, Surgical protocol, Weight Bearing (IV right wrist;posterior splint secured w/ katlyn wrap left LE) Activity Level: Up as Tolerated Required Braces or Orthoses?: Yes (posterior splint secured w/ katlyn wrap left LE) Implants Present? : (denies) Lower Extremity Weight Bearing Restrictions Left Lower Extremity Weight Bearing: Non Weight Bearing Objective Transfers Transfers Sit to Stand: Contact guard assistance Stand to Sit: Contact guard assistance Stand Pivot Transfers: Contact guard assistance (used wheeled walker) Comment: verbal cues for hand placement to push up from bed given but pt prefers to use bilateral walker hand cloth bleaching range back tender despite cues and bathroom rail and sink to sit down on the commode rather than grab bars on toilet- states she feels safer this way. Commode transfer completed w/ CGA x 1. Ambulation Ambulation WB Status: NWB left LE Ambulation Surface: Level tile Device: Rolling Walker Assistance: Contact guard assistance Quality of Gait: maintained left LE NWB well Distance: 10' x 2 to bathroom and back Stairs Stairs/Curb Stairs?: No (has 3 + 1 step without rail- family assisting on steps) Bed Mobility Bed mobility Rolling to Right: Modified independent Supine to Sit: Modified independent Sit to Supine: Modified independent Scooting: Modified independent Bed Mobility Comments: HOB elevated; pt dangled independently at the EOB Balance Balance Sitting - Static: Good Sitting - Dynamic: Good Standing - Static: Good, - (used wheeled walker) Standing - Dynamic: Fair, + (used wheeled walker) Wheelchair activity LE Function AROM RLE (degrees) RLE AROM: WFL Strength RLE Comment: grossly 4+/5 AROM LLE (degrees) LLE AROM : WFL LLE General AROM: hip and knee; left ankle NT due to posterior splint secured w/ katlyn wrap left LE Strength LLE Comment: 4-/5 left hip and knee; posterior splint secured w/ katlyn wrap left LE UE Function AROM RUE (degrees) RUE General AROM: see OT for UE assessment- right hand dominant Strength RUE Comment: see OT for UE assessment- right hand dominant AROM LUE (degrees) LUE General AROM: see OT for UE assessment Strength LUE Comment: see OT for UE assessment Gross Assessment Sensation: Impaired (RSD bilateral LEs, fibromyalgia bilateral hands) Vitals Vitals O2 Device: None (Room air) Orientation Overall Orientation Status: Within Functional Limits Orientation Level: Oriented to situation, Oriented to person, Oriented to place, Oriented to time Vision Vision: Impaired Vision Exceptions: Wears glasses at all times Hearing Hearing: Within functional limits Assessment Assessment Assessment: continue per POC to maxmize potential for safe D/C Treatment Diagnosis: impaired mobility and balance due to left LE S/P removal of left external fixator Therapy Prognosis: Good Decision Making: Medium Complexity History: pt admitted due to charcot left ankle- removal of external fixator Exam: ROM, MMT, balance and mobility assessments Clinical Presentation: MOD I for bed mobility; CGA x 1 for transfers and gait w/ wheeled walker 10' x 2, maintains Left LE NWB well; fall risk Discharge Recommendations: Continue to assess pending progress, Patient would benefit from continued therapy after discharge, Therapy recommended at discharge Activity Tolerance Activity Tolerance: Patient limited by fatigue, Patient limited by pain, Patient limited by endurance Patient Education Patient Education Education Given To: Patient Education Provided: Role of Therapy, Plan of Care Education Method: Demonstration, Verbal Barriers to Learning: None Education Outcome: Verbalized understanding, Continued education needed Functional Outcome Measures AM-PAC Basic Mobility - Inpatient How much help is needed turning from your back to your side while in a flat bed without using bedrails?: None How much help is needed moving from lying on your back to sitting on the side of a flat bed without using bedrails?: None How much help is needed moving to and from a bed to a chair?: A Little How much help is needed standing up from a chair using your arms?: A Little How much help is needed walking in hospital room?: A Little How much help is needed climbing 3-5 steps with a railing?: Total AM[facility] In[facility] Mobility Raw [facility] : [facility] T-Scale Score : 43.63 Mobility Inpatient CMS 0-100% Score: 46.58 Mobility Inpatient [facility] G-Code Modifier : CK Goals Patient Goals Patient Goals : return home today Short Term Goals Time Frame for Short Term Goals: daily x 2-3 days Short Term Goal 1: pt to demonstrate mod-I for bed mobility Short Term Goal 2: pt to demonstrate transfers sit <> stand from various surfaces and bed <> chair with supervision while maintaining left LE NWB Short Term Goal 3: pt able to ambulate 10-15ft with RW/NWB L LE with supervision Short Term Goal 4: pt able to negotiate snee scooter mod-I household distances and mobility Plan Physical Therapy Plan General Plan: (daily x 2-3 days) Specific Instructions for Next Treatment: advance gait distances using wheeled walker and progress to steps, instruct in HEP Current Treatment Recommendations: Strengthening, Balance training, Functional mobility training, Transfer training, Gait training, Stair training, Endurance training, Patient/Caregiver education & training, Safety education & training, Home exercise program, Equipment evaluation, education, & procurement, Positioning, Therapeutic activities Safety Devices Type of Devices: All fall risk precautions in place, Call light within reach, Gait belt, Patient at risk for falls, Left in bed, Nurse notified, Bed alarm in place (nurse Dominguez) PT Individual Minutes Time In: 858 Time Out: 928 Minutes: 30 Time Code Minutes Timed Code Treatment Minutes: 10 Minutes CLINICAL PHARMACY NOTE: MEDS TO BEDS Total # of Prescriptions Filled: 2 The following medications were delivered to the patient: Hydrocodone/APAP 5/325mg Aspirin 325mg Additional Documentation: 09/14/24 5:06pm kbg delivered to pt room Nurse Jesse locked-up pt aware Pre op blood sugar 280 documented in this encounter [facility] 09-15-2024 Hospital Discharge instructions Angely Martínez RN - 09/15/2024 7:14 AM EST Podiatry: Podiatry to continue to monitor as outpatient. Postoperative dressings to remain intact until follow-up appoint with Dr. Mike within 1 week of discharge Please remain nonweightbearing to the operated extremity Weightbearing status: Nonweightbearing to the left lower extremity Watch for signs of systemic infection: fever, chills, nausea, vomiting, diarrhea, etc. If any of these symptoms arise, please contact Dr. Mike's office or go to the ED. Watch for signs of local infection: increased redness, increased swelling, increased drainage, malodor, etc. If any of these symptoms arise, please contact Dr. Mike's office or go to ED. Please follow-up with Dr. Dr. Mike in their office in 1 week Ed Mello DPM - 09/15/2024 7:13 AM EST Continuity of Care Form Patient Name: Risa Warner : 1975 Admit date: 09/14/2024 Discharge date: 09/16/2024 Code Status Order: Full Code Advance Directives: Advance Care Flowsheet Documentation Date/Time Healthcare Directive Type of Healthcare Directive Copy in Chart Healthcare Agent Appointed Healthcare Agent's Name Healthcare Agent's Phone Number 09/14/24 2931 Yes, patient has an advance directive for healthcare treatment Durable power of employment law attorney for health care;Living will Yes, copy in chart -- -- -- Admitting Physician: Meera Mike DPM PCP: Vivian Oseguera APRN - [place] Discharging Nurse: Discharging Hospital Unit/Room#: - Discharging Unit Phone Number: Emergency Contact: Extended Emergency Contact Information Primary Emergency Contact: Yoel Warner Address: [address] [place] [id number] Mobile Relation: Spouse Past Surgical History: Past Surgical History: Procedure Laterality Date ANKLE SURGERY Left 07/23/2024 ANKLE EXTERNAL FIXATOR APPLICATION (ORTHOFIX) performed by Meera Mike DPM at [facility] OR BLADDER SUSPENSION CARDIAC CATHETERIZATION Left 12/31/2015 right radial / Dr. Vargas/ No stents COLONOSCOPY N/A 12/08/2022 COLONOSCOPY POLYPECTOMY SNARE/COLD BIOPSY performed by Tari Curtis MD at [facility] OR COLONOSCOPY 12/08/2022 -polyps(hyperplastic)tor tuous colon CYSTOSCOPY Left with stent FOOT CLOSED REDUCTION Left 07/23/2024 FOOT CLOSED REDUCTION PINNING performed by Meera Mike DPM at [facility] OR FOOT SURGERY Left 09/14/2024 REMOVE EXTERNAL FIXATOR LEFT FOOT performed by Meera Mike DPM at [facility] OR FOOT SURGERY Left 09/14/2024 SUBTALAR JOINT FUSION FUSION MIDFOOT MULTIPLE JOINTS LEFT FOOT performed by Meera Mike DPM at [facility] OR HYSTERECTOMY (CERVIX STATUS UNKNOWN) KIDNEY SURGERY 2008 stent for kidney stone LITHOTRIPSY 2008 LITHOTRIPSY Right 09/05/2013 OTHER SURGICAL HISTORY 2006 biopsy for goiter OTHER SURGICAL HISTORY permanent spinal nerve stimulator OTHER SURGICAL HISTORY 09/2022 nerve stimulator removal PARTIAL HYSTERECTOMY (CERVIX NOT REMOVED) SHOULDER SURGERY Right 1999 UPPER GASTROINTESTINAL ENDOSCOPY 07/10/2015 -bx VAGINAL PROLAPSE REPAIR Immunization History: Immunization History Administered Date(s) Administered Influenza A (G8Y7-01) Vaccine PF IM 08/29/2009 Influenza Virus Vaccine 07/04/2013, 07/09/2015 Influenza, AFLURIA (age 3 y+), FLUZONE, (age 6 mo+), Quadv MDV, 0.5mL 07/25/2020, 07/25/2020 Influenza, FLUARIX, FLULAVAL, FLUZONE (age 6 mo+) and AFLURIA, (age 3 y+), Quadv PF, 0.5mL 08/24/2018, 06/11/2019 Pneumococcal, PPSV23, PNEUMOVAX 23, (age 2y+), SC/IM, 0.5mL 05/10/2018 Zoster Recombinant (Shingrix) 03/25/2023 Active Problems: Patient Active Problem List Diagnosis Code Pain in upper limb M79.603 Diabetic neuropathy ([facility]) E11.40 Fibromyalgia M79.7 Depression F32.A Controlled type 2 diabetes mellitus with diabetic polyneuropathy, with long-term current use of insulin ([facility]) E11.42, Z79.4 Ureteric calculus N20.1 Gross hematuria R31.0 History of kidney stones Z87.442 Renal stones N20.0 Idiopathic acute pancreatitis K85.00 Hypertriglyceridemia E78.1 SIRS without infection with organ dysfunction ([facility]) R65.11 Generalized abdominal pain R10.84 Perirectal abscess K61.1 Tobacco abuse Z72.0 Essential hypertension I10 Dyslipidemia E78.5 Type 2 diabetes mellitus with hyperglycemia ([facility]) E11.65 Multiple joint pain M25.50 Abnormal LFTs R79.89 Fatty liver K76.0 Nevus of abdominal wall D22.5 Acute pneumonia J18.9 Syncope and collapse R55 Spinal stenosis, lumbar region with neurogenic claudication M48.062 Primary osteoarthritis, left shoulder M19.012 Pain in left shoulder M25.512 Other muscle spasm M62.838 Myalgia, other site M79.18 Charcot ankle, left M14.672 Closed dislocation of tarsal joint of left foot S93.315A Multiple closed tarsal fractures, left, initial encounter S92.202A Closed fracture of tarsal and metatarsal bones of left foot S92.302A, S92.202A Lisfranc dislocation, left, initial encounter S93.325A 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 ([facility]) E11.610 Charcot joint of left foot M14.672 Acquired posterior equinus, left M21.862 Post-op pain G89.18 Diabetes ([facility]) E11.9 Multiple closed fractures of metatarsal bone of left foot S92.302A Dislocation of tarsometatarsal joint of left foot S93.325A Charcot's joint of foot, left M14.672 Isolation/Infection: Isolation No Isolation Patient Infection Status None to display Nurse Assessment: Last Vital Signs: BP 106/60 Pulse 90 Temp 98.2 F (36.8 C) (Oral) Resp 16 Ht 1.676 m (5' 5.98 ) Wt 97.5 kg (215 lb) LMP 04/14/2016 SpO2 94% BMI 34.72 kg/m Last documented pain score (0-10 scale): Pain Level: 5 Last Weight: Wt Readings from Last 1 Encounters: 09/14/24 97.5 kg (215 lb) Mental Status: {IP PT MENTAL STATUS:} IV Access: { SHAR IV ACCESS:385785605} Nursing Mobility/ADLs: Walking {CHP DME ADLs:934169223} Transfer {CHP DME ADLs:178865939} Bathing {CHP DME ADLs:421414885} Dressing {CHP DME ADLs:264205088} Toileting {CHP DME ADLs:064404905} Feeding {CHP DME ADLs:125696185} Split And Drum Room Supervisor {P DME ADLs:540313933} Med Delivery { SHAR MED Delivery:482216119} Wound Care Documentation and Therapy: Incision 09/14/24 Foot Left (Active) Dressing Status Clean;Dry;Intact 09/14/241940 Dressing/Treatment Katlyn wrap 09/14/241940 Incision Assessment Other (Comment) 09/14/241940 Drainage Amount None (dry) 09/14/241940 Odor None 09/14/24 1305 Number of days: 0 Elimination: Continence: Bowel: {YES / NO:} Bladder: {YES / NO:} Urinary Catheter: {Urinary Catheter:751852563} Colostomy/Ileostomy/Ileal Conduit: {YES / NO:} Date of Last BM: Intake/Output Summary (Last 24 hours) at 09/15/2024 0712 Last data filed at 09/14/2024 1315 Gross per 24 hour Intake 1950 ml Output 550 ml Net 1400 ml I/O last 3 completed shifts: In: 1950 [I.V.:1950] Out: 550 [Urine:450; Blood:100] Safety Concerns: { SHAR Safety Concerns:757425805} Impairments/Disabilities: {[facility]air[place]/Disabilities:2109992 71} Nutrition Therapy: Current Nutrition Therapy: { SHAR Diet List:573113243} Routes of Feeding: {[facility] DME Other Feedings:238530514} Liquids: {Double Needle Operator Lockstitch liquid thickness:44478} Daily Fluid Restriction: {[facility] DME Yes amt example:595105779} Last Modified Barium Swallow with Video (Video Swallowing Test): {Done Not Done Date:} Treatments at the Time of Hospital Discharge: Respiratory Treatments: Oxygen Therapy: {Therapy; copd oxygen:80947} Ventilator: {[facility] Vent List:077187736} Rehab Therapies: {THERAPEUTIC INTERVENTION:1184577100} Weight Bearing Status/Restrictions: {[facility] Weight Bearin} Other Medical Equipment (for information only, NOT a DME order): {EQUIPMENT:548679184} Other Treatments: Patient's personal belongings (please select all that are sent with patient): {[facility] DME Belongings:716546752} RN SIGNATURE: {Esignature:605271949} CASE MANAGEMENT/SOCIAL WORK SECTION Inpatient Status Date: Readmission Risk Assessment Score: [facility] RISK OF UNPLANNED READMISSION 2.0 0 Total Score Discharging to Facility/ Agency Name: Address: Phone: Fax: Dialysis Facility (if applicable) Name: Address: Dialysis Schedule: Phone: Fax: Electrolysis Needle Operator/Medicaid Billing Clerk signature: {Esignature:384038592} PHYSICIAN SECTION Prognosis: Fair Condition at Discharge: Stable Rehab Potential (if transferring to Rehab): {Prognosis:7298788500} Recommended Labs or Other Treatments After Discharge: Podiatry: Podiatry to continue to monitor as outpatient. Postoperative dressings to remain intact until follow-up appoint with Dr. Mike within 1 week of discharge Please remain nonweightbearing to the operated extremity Weightbearing status: Nonweightbearing to the left lower extremity Watch for signs of systemic infection: fever, chills, nausea, vomiting, diarrhea, etc. If any of these symptoms arise, please contact Dr. Mike's office or go to the ED. Watch for signs of local infection: increased redness, increased swelling, increased drainage, malodor, etc. If any of these symptoms arise, please contact Dr. Mike's office or go to ED. Please follow-up with Dr. Dr. Mike in their office in 1 week Physician Certification: I certify the above information and transfer of Risa Warner is necessary for the continuing treatment of the diagnosis listed and that she requires {Admit to Appropriate Level of Care:38496} for {GREATER/LESS:174535039} 30 days. Update Admission H&P: No change in H&P PHYSICIAN SIGNATURE: Meera Mike DPM The following attachments cannot be sent through Care Everywhere.doxycycline (oral/injection) (Trinidadian)hydrocodone (oral) (Trinidadian)documented in this encounter [facility] 09-07-2024 Hospital Discharge instructions Geno Douglas RN - 09/07/2024 12:14 PM EST Pre-op Instructions For Out-Patient Surgery Medication Instructions: Please stop herbs and any supplements now (includes vitamins and minerals). For these medications: Dulaglutide (Trulicity), Exenatide (Byetta and Bydureon, Liraglutide (Victoza), Lixisenatide (Adlyxin), Semaglutide (Ozempic and Rybelsus), Tirzepatide (Mounjaro)- Stop 1 week prior if taking weekly or 1 day prior if taking every 12 hours or daily. Please contact your surgeon and prescribing physician for pre-op instructions for any blood thinners. Stop Aspirin & Diclofenac as directed If you have inhalers/aerosol treatments at home, please use them the morning of your surgery and bring the inhalers with you to the hospital. Please take the following medications the morning of your surgery with a sip of water: Metoprolol, Omeprazole, Inhaler Surgery Instructions: After midnight before surgery: Do not eat or drink anything, including water, mints, gum, and hard candy. You may brush your teeth without swallowing. No smoking, chewing tobacco, or street drugs. Please shower or bathe before surgery. If you were given Surgical Scrub Chlorhexidine Gluconate Liquid (CHG), please shower the night before and the morning of your surgery following the detailed instructions you received during your pre-admission visit. Please do not wear any cologne, lotion, powder, deodorant, jewelry, piercings, perfume, makeup, nail maldivian, hair accessories, or hair spray on the day of surgery. Wear loose comfortable clothing. Leave your valuables at home but bring a payment source for any after-surgery prescriptions you plan to fill at [facility]. Bring a storage case for any glasses/contacts. An adult who is responsible for you MUST drive you home and should be with you for the first 24 hours after surgery. If having out-patient knee and foot surgeries, please arrange for planned crutches, walker, or wheelchair before arriving to the hospital. The Day of Surgery: Arrive at [facility] Surgery Entrance at the time directed by your surgeon and check in at the desk. If you have a living will or healthcare power of employment law attorney, please bring a copy. You will be taken to the pre-op holding area where you will be prepared for surgery. A physical assessment will be performed by a nurse practitioner or dry house tender. Your IV will be started and you will meet your anesthesiologist. When you go to surgery, your family will be directed to the surgical waiting room, where the doctor should speak with them after your surgery. After surgery, you will be taken to the recovery area. When you are alert and stable, you will receive instructions and be prepared for discharge. If you use a Bi-PAP or C-PAP machine, please bring it with you and leave it in the car in case it is needed in recovery room. documented in this encounter [facility] 07-26-2024 History of Present illness Narrative CLINICAL PHARMACY NOTE: MEDS TO BEDS Total # of Prescriptions Filled: 3 The following medications were delivered to the patient: Acetaminophen 500MG Tablets Oxycodone/APAP 5-325MG Tablets Doxycycline Hyclate 100MG Tablets Additional Documentation: Delivered to the room and signed for by the PT - nurse present. 3:58PM 07/26/24 07/26/24 1520 Encounter Summary Encounter Overview/Reason Volunteer Encounter Service Provided For Patient Last Encounter 07/26/24 Assessment/Intervention/Outcome Intervention Prayer (assurance of)/[place] 07/25/24 1523 Encounter Summary Encounter Overview/Reason Volunteer Encounter Service Provided For Patient Last Encounter 07/25/24 Assessment/Intervention/Outcome Intervention Prayer (assurance of)/[facility] Physical Therapy Date: 07/25/2024 Patient Name: Risa Warner Room: : 1975 (49 y.o.) Gender: female Discharge Recommendations: Home with assist PRN Equipment Needed: No Assessment Assessment Activity Tolerance: Patient limited by endurance;Patient limited by fatigue;Patient limited by pain Discharge Recommendations: Home with assist PRN Plan Physical Therapy Plan General Plan: 1 time a day 7 days a week Current Treatment Recommendations: Gait training, Functional mobility training, Therapeutic activities, Safety education & training, Transfer training, Endurance training Restrictions Restrictions/Precautions: General Precautions, Fall Risk, Weight Bearing Implants present? : (previous has spinal stimulator- but removed) Other position/activity restrictions: L LE external fixator Left Lower Extremity Weight Bearing: Non Weight Bearing Subjective Subjective Subjective: Pt is in bed upon arrival. Pt reports having all DME ready at home. Knee scooter and walker. Pt is stating hoping to go home tomorrow afternoon. Pt declines ambulation and practicing the knee scooter today. Pt reports right leg is a little too tired to attempt. Pain: 7/10 at rest Overall Cognitive Status: WNL Overall Orientation Status: Within Normal Limits Orientation Level: Oriented X4 Vitals Temp: 97.7 F (36.5 C) Pulse: 85 Heart Rate Source: Monitor Respirations: 17 SpO2: 90 % O2 Device: None (Room air) BP: (!) 123/59 MAP (Calculated): 80 BP Location: Left upper arm Patient Position: Supine Objective Bed Mobility Yes Interventions: Rolling: Modified independent Supine to Sit: Modified independent Sit to Supine: Modified independent Scooting: Modified independent Transfer Training Transfer Training: Yes Overall Level of Assistance: Supervision Interventions: Verbal cues, Safety awareness training Sit to Stand: Supervision Stand to Sit: Supervision Stand Pivot Transfers: Supervision Toilet Transfer: Supervision (Assisting with IV Pole and IV Line management) Gait Training Gait Training Gait Training: Yes Left Side Weight Bearing: Non-weight bearing (Halo External fixator) Gait Left Side Weight Bearing: Non-weight bearing (Halo External fixator) Overall Level of Assistance: Supervision Distance (ft): 8 Feet (8ft from bed to toilet and then 8ft back to back after toileting) Interventions: Safety awareness training Speed/Dina: Slow (slow hop) Balance Sitting: Impaired Sitting - Static: Good (unsupported) Sitting - Dynamic: Good (unsupported) Standing: Intact PT Exercises Exercise Treatment: Home Safety education with both RW and Knee Scooter. Pt reports using the bump up method of stairs at home to get into front door. Pt reports that she will not be sleeping in a bed however will be using a recliner. Disease-specific Exercises: Cryotherapy to left LE for improved pain control. Goals Short Term Goals Time Frame for Short Term Goals: 2-3 days Short Term Goal 1: mod-I bed mobility Short Term Goal 2: transfers from various surfaces with supervision while NWB Short Term Goal 3: pt able to ambulate 10-15ft with RW/NWB L LE with supervision Short Term Goal 4: pt able to negotiate snee scooter mod-I household distances and mobility [facility] Basic Mobility - Inpatient How much help is needed turning from your back to your side while in a flat bed without using bedrails?: None How much help is needed moving from lying on your back to sitting on the side of a flat bed without using bedrails?: None How much help is needed moving to and from a bed to a chair?: A Little How much help is needed standing up from a chair using your arms?: A Little How much help is needed walking in hospital room?: A Little How much help is needed climbing 3-5 steps with a railing?: A Lot [facility] Inpatient Mobility Raw Score : 19 [facility] Inpatient T-Scale Score : 45.44 Mobility Inpatient CMS 0-100% Score: 41.77 Mobility Inpatient CMS G-Code Modifier : CK PT Individual Minutes Time In: 1115 Time Out: 1138 Minutes: 23 Images from the original note were not included. Progress Note Foot and Ankle Surgery Subjective CC: Postoperative admission POD 2 Closed treatment tarsometatarsal dislocation, LEFT Percutaneous fixation tarsal fracture with manipulation Application of multiplanar external fixator Achilles tendon lengthening Interval: Patient seen and examined at bedside. No acute events overnight. Afebrile, vital signs stable Patient resting comfortably with external fixator on left lower extremity Patient states she is still having significant pain. She rates pain 7/10 this morning but states it got up to 10/10 last night Updated Labs: WBC: Lab Results Component Value Date WBC 10.2 07/25/2024 ESR: Lab Results Component Value Date SEDRATE 25 07/24/2024 CRP: Lab Results Component Value Date CRP 2.8 12/28/2019 HPI : Risa Warner is a 49 y.o. female seen at [facility] for postoperative abdomen after application of a multiplanar external fixator, percutaneous foot excision tarsal fracture, consider lengthening, no close treatment tarsometatarsal dislocation on 07-15-2024. Patient had injury to left lower extremity incidentally after walking where she was seen in [facility] almost 2 weeks ago. She followed Dr. Knapp with outpatient and was found to have acute Charcot arthropathy event with midfoot dislocation. She was seen in the outpatient setting and set up for outpatient surgery. She is a diabetic smoker with past history of see below. Patient mated postoperatively for further evaluation. ROS: Denies N/V/F/C/SOB/CP. Otherwise negative except at stated in the HPI. Medications: Scheduled Meds: vitamin D 50,000 Units Oral Weekly insulin lispro 60 Units SubCUTAneous TID WC pregabalin 25 mg Oral TID aspirin 81 mg Oral Daily lisinopril 10 mg Oral Daily furosemide 20 mg Oral Daily fenofibrate 160 mg Oral Nightly cetirizine 10 mg Oral Nightly sodium chloride flush 5-40 mL IntraVENous 2 times per day enoxaparin 40 mg SubCUTAneous Daily ceFAZolin 2,000 mg IntraVENous Q8H atorvastatin 40 mg Oral Nightly DULoxetine 60 mg Oral Nightly empagliflozin 10 mg Oral Daily methocarbamol 500 mg Oral 4x Daily metoprolol succinate 75 mg Oral Daily montelukast 10 mg Oral Nightly pantoprazole 40 mg Oral QAM AC rOPINIRole 4 mg Oral Nightly insulin lispro 0-4 Units SubCUTAneous 4x Daily AC & HS Continuous Infusions: sodium chloride dextrose PRN Meds:[Held by provider] traMADol, fluticasone, oxyCODONE-acetaminophen OR oxyCODONE-acetaminophen, sodium chloride flush, sodium chloride, potassium chloride OR potassium alternative oral replacement OR potassium chloride, magnesium sulfate, ondansetron OR ondansetron, polyethylene glycol, acetaminophen OR acetaminophen, povidone-iodine, morphine, albuterol sulfate HFA, glucose, dextrose bolus OR dextrose bolus, glucagon (rDNA), dextrose Objective Vitals: Patient Vitals for the past 8 hrs: BP Temp Temp src Pulse Resp SpO2 07/25/24 0639 (!) 123/59 97.7 F (36.5 C) Oral 85 17 90 % 07/25/24 0529 -- -- -- -- 16 -- 07/25/24 0308 -- -- -- -- 16 -- Average, Min, and Max for last 24 hours Vitals: TEMPERATURE: Temp Av.8 F (36.6 C) Min: 97.7 F (36.5 C) Max: 97.8 F (36.6 C) RESPIRATIONS RANGE: Resp Av.1 Min: 16 Max: 17 PULSE RANGE: Pulse Av Min: 83 Max: 85 BLOOD PRESSURE RANGE: Systolic (24hrs), Av , Min:103 , Max:123 ; Diastolic (24hrs), Av, Min:59, Max:62 PULSE OXIMETRY RANGE: SpO2 Av % Min: 90 % Max: 96 % I/O last 3 completed shifts: In: - Out: 1000 [Urine:1000] CBC: Recent Labs 07/24/24 0613 07/25/24 0836 WBC 14.4* 10.2 HGB 10.8* 10.9* HCT 33.0* 33.2* PLT 473* 460* BMP: Recent Labs 07/23/24 1258 07/24/24 0613 07/25/24 0836 NA -- 136 135* K 5.5* 5.3 4.6 CL -- 103 99 CO2 -- 21 23 BUN -- 27* 38* CREATININE -- 1.1 1.2 GLUCOSE -- 144* 191* CALCIUM -- 9.0 9.4 Coags: No results for input(s): APTT , INR in the last 72 hours. Invalid input(s): PROT Lab Results Component Value Date SEDRATE 25 07/24/2024 No results for input(s): CRP in the last 72 hours. Physical Exam: General: A&Ox3, NAD Heart: Regular rate and rhythm. Lungs: Equal air entry. No increased effort. Abdomen: Soft, non-tender to palpation. Not distended. Physical exam limited due to presence of external fixator. Popliteal pulses palpable. Compartments are soft and compressible. Patient is able to wiggle toes. CFT present and adequate across all digits. Clinical Images: None Imaging: XR TIBIA FIBULA LEFT (2 VIEWS) Final Result Postoperative left leg, ankle and foot radiographs. XR FOOT LEFT (MIN 3 VIEWS) Final Result Postoperative left leg, ankle and foot radiographs. XR ANKLE LEFT (MIN 3 VIEWS) Final Result Postoperative left leg, ankle and foot radiographs. FLUORO FOR SURGICAL PROCEDURES Final Result Cultures: Results No results found for the last 336 hours. Assessment Risa Warner is a 49 y.o. female with Charcot arthropathy with neuropathy, left foot Diabetic peripheral neuropathy Diabetes mellitus type 2 Lisfranc dislocation, left foot Midfoot dislocation, left foot Medial cuneiform fracture, left foot Principal Problem: Charcot ankle, left Active Problems: Controlled type 2 diabetes mellitus with diabetic polyneuropathy, with long-term current use of insulin (HCC) Tobacco abuse Essential hypertension Dyslipidemia Type 2 diabetes mellitus with hyperglycemia (HCC) Fatty liver Closed dislocation of tarsal joint of left foot Multiple closed tarsal fractures, left, initial encounter Closed fracture of tarsal and metatarsal bones of left foot Lisfranc dislocation, left, initial encounter 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) Charcot joint of left foot Acquired posterior equinus, left Post-op pain Resolved Problems: * No resolved hospital problems. * Plan Patient examined and evaluated at bedside. Medical management per Internal medicine-medication reconciliation IV Ancef every 12 Elevate limb for edema control, ice behind knee. Postoperative dressing intact. Please reinforce with ABDs, 4 x 4, Katlyn as needed PT/OT evaluation She is to be nonweightbearing to the surgical extremity, weightbearing as tolerated to right extremity with assistive device per PT recommendations PT recommends discharge home with assist as needed Discussion was had with patient today about her pain management. She states she is trying not to use IV morphine for breakthrough pain because she knows she cannot be discharged home on IV pain medication. Goal is for patient to have pain controlled on oral medication in preparation for discharge. Discussed with Dr. Mike DVT ppx: lovenox Diet: carb control Activity: Nonweightbearing to Left lower extremity Pain Control: panel ordered Zora Martinez DPM Foot and Ankle Surgery 07/25/2024 at 10:26 AM I performed a history and physical examination of the patient and discussed management with the resident. I reviewed the resident s note and agree with the documented findings and plan of care. Any areas of disagreement are noted on the chart. I was personally present for the lezama portions of any procedures. I have documented in the chart those procedures where I was not present during the lezama portions. I have reviewed the Podiatry Resident progress note. I agree with the chief complaint, past medical history, past surgical history, allergies, medications, social and family history as documented unless otherwise noted below. Documentation of the HPI, Physical Exam and Medical Decision Making performed by medical students or scribes is based on my personal performance of the HPI, PE and MDM. I have personally evaluated this patient and have completed at least one if not all lezama elements of the E/M (history, physical exam, and MDM). Additional findings are as noted. Meera Mike DPM on 07/25/2024 at 3:36 PM Board Certified, [employer] Fellow, [employer] [facility] Occupational Therapy Evaluation Date: 07/24/24 Patient Name: Risa Warner Room: -01 Account: [id number] : 1975 (49 y.o.) Gender: female Discharge Recommendations: The patient may need non-skilled ADL assistance after discharge. OT Equipment Recommendations Other: TBD Referring Practitioner: Sreekanth Weber DPM Diagnosis: Charcot ankle Treatment Diagnosis: impaired selfcare status Past Medical History: has a past medical [...] other surgical history (09/2022); Colonoscopy (N/A, 12/08/2022); Colonoscopy (12/08/2022); Foot Closed Reduction (Left, 07/23/2024); and Ankle surgery (Left, 07/23/2024). Restrictions Restrictions/Precautions Restrictions/Precautions: General Precautions, Fall Risk, Weight Bearing Required Braces or Orthoses?: No Implants present? : (previous has spinal stimulator- but removed) Lower Extremity Weight Bearing Restrictions Left Lower Extremity Weight Bearing: Non Weight Bearing Position Activity Restriction Other position/activity restrictions: L LE external fixator Vitals Vitals O2 Device: None (Room air) Subjective Subjective Pain: 7/10 throughout session, at rest and with movement Social/Functional History Social/Functional History Lives With: Spouse Type of Home: House Home Layout: Two level, Able to Live on Main level with bedroom/bathroom, Performs ADL's on one level, Laundry in basement Home Access: Stairs to enter without rails Entrance Stairs - Number of Steps: 3 ADALID to porch, 1 threshold into house, has cement slabs on side of steps has been proppin Bathroom Shower/Tub: Tub/Shower unit, Shower chair with back, Curtain (shower bench) Bathroom Toilet: Standard (sink next to toilet) Bathroom Equipment: Hand-held shower, Grab bars in shower, Tub transfer bench (suction cup grab bars) Bathroom Accessibility: Walker accessible Home Equipment: Crutches, Walker - Rolling, Wheelchair - Manual, Grab bars, Cane (knee scooter) Has the patient had two or more falls in the past year or any fall with injury in the past year?: No Receives Help From: Family ADL Assistance: Independent Homemaking Assistance: Needs assistance (prior to injury, independent with cooking . 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 Lives with . still works. Daughter lives local, Objective Orientation Overall Orientation Status: Within Normal Limits Orientation Level: Oriented X4 Cognition Overall Cognitive Status: WNL Sensation Overall Sensation Status: Impaired (patient reporting poly neuopathy and sciatic pain, B UEs/LEs neuropathy) Vision Vision: Impaired Vision Exceptions: Wears glasses at all times Hearing Hearing: Within functional limits ADL Feeding: Independent, Based on clinical judgement Grooming: Setup Grooming Skilled Clinical Factors: OT providing set-up for donning contacts at end of session at bed level with use of tray table UE Bathing: Setup, Based on clinical judgement LE Bathing: Minimal assistance, Based on clinical judgement UE Dressing: Setup, Based on clinical judgement LE Dressing: Minimal assistance LE Dressing Skilled Clinical Factors: patient able to don R socks while seated EOB, assistance with threading pullup brief over L external fixator while seated on toilet, CGA for safety with clothing management, while maintaining NWB L LE Toileting: Minimal assistance Toileting Skilled Clinical Factors: patient completing pesonal hygiene while seated on toilet. Assistance for maanging brief down over hips prior to toileting with patient able to complet clothing management after toileting with CGA with use of unilateral support while maintaining NWB L LE Additional Comments: ADL scores based on clinical judgement unless otherwise noted. Patient currently limited by decreased strength, balance, pain, L external fixator with NWB precautions impacting patients independence/safety with selfcare tasks UE Function LUE AROM (degrees) LUE AROM : WFL LUE General AROM: patient reporting recieving therapy for frozen shoulder but ROM WFLs this date Left Hand AROM (degrees) Left Hand AROM: WFL Tone LUE LUE Tone: Normotonic LUE Strength L Hand General: 4/5 RUE AROM (degrees) RUE AROM : WFL Right Hand AROM (degrees) Right Hand AROM: WFL Tone RUE RUE Tone: Normotonic RUE Strength R Hand General: 4/5 Hand Dominance Hand Dominance: Right Fine Motor Skills/Coordination Coordination Movements Are Fluid And Coordinated: Yes Bed Mobility Bed mobility Supine to Sit: Stand by assistance Sit to Supine: Stand by assistance Scooting: Stand by assistance Bed Mobility Comments: head of bed elevated Balance Balance Sitting Balance: Stand by assistance (seated EOB) Standing Balance: Contact guard assistance Transfers Transfers Sit to stand: Contact guard assistance Stand to sit: Contact guard assistance Transfer Comments: cueing for hand placement to RW, good adherence to NWB L LE Toilet Transfers Toilet - Technique: Ambulating Equipment Used: Grab bars Toilet Transfer: Contact guard assistance Toilet Transfers Comments: good use of grab bars for hand placement, CGA for safety while maintaining NWB L LE Functional Mobility Functional - Mobility Device: Rolling Walker Activity: To/from bathroom Assist Level: Contact guard assistance Functional Mobility Comments: CGA for stability with second asssit for managing IV pole, good adherence to maintaining NWB L LE, no LOB noted Assessment Assessment Performance deficits / Impairments: Decreased ADL status, Decreased functional mobility , Decreased strength, Decreased balance, Decreased high-level IADLs Treatment Diagnosis: impaired selfcare status Prognosis: Good Decision Making: Medium Complexity Discharge Recommendations: Patient would benefit from continued therapy after discharge Activity Tolerance Activity Tolerance: Patient Tolerated treatment well, Patient limited by pain Safety Devices Type of Devices: All fall risk precautions in place, Call light within reach, Left in bed, Nurse notified, Gait belt, Patient at risk for falls Patient Education Patient Education Education Given To: Patient Education Provided: Role of Therapy, Plan of Care, Precautions, Transfer Training, Mobility Training Education Provided Comments: OT POC, safety with functional transfers/mobility, NWB L LE precautions, pain management techniques Education Method: Verbal Barriers to Learning: None Education Outcome: Verbalized understanding, Demonstrated understanding, Continued education needed Functional Outcome Measures [facility] Daily Activity - Inpatient How much help is needed for putting on and taking off regular lower body clothing?: A Little How much help is needed for bathing (which includes washing, rinsing, drying)?: A Little How much help is needed for toileting (which includes using toilet, bedpan, or urinal)?: A Little How much help is needed for putting on and taking off regular upper body clothing?: A Little How much help is needed for taking care of personal grooming?: A Little How much help for eating meals?: None [facility] Inpatient Daily Activity Raw Score: 19 [facility] Inpatient ADL T-Scale Score : 40.22 ADL Inpatient CMS 0-100% Score: 42.8 ADL Inpatient [facility] G-Code Modifier : CK Goals Short Term Goals Time Frame for Short Term Goals: By discharge Short Term Goal 1: patient to safely perform LB bathing/dressing with SBA with use of AE/adaptive strategies with good safety while maintaining NWB L LE Short Term Goal 2: patient to safely perform toileting task with supervision with use of DME as needed while maintaining NWB L LE Short Term Goal 3: patient to safely perform functional transfers/mobility with use of least restrictive device with supervision while maintaining NWB L LE during selfcare tasks Short Term Goal 4: patient to tolerate standing 5+ min with SBA during functional activity of choice while maintaining NWB L LE to increase independence with selfcare tasks Short Term Goal 5: patient to participate in 15+ min of therapeutic exercise/functional activity to increase independence with selfcare tasks Short Term Goal 6: patient to verbalize/demonstrate good understanding of adaptive strategies/AE/DME, home safety strategies and NWB precautions to increase independence with selfcare tasks Short Term Goal 7: Pt will identify 2 non-pharmacological pain relief techniques during self-care tasks. Plan Occupational Therapy Plan Times Per Week: 5-7 Current Treatment Recommendations: Functional mobility training, Endurance training, Strengthening, Balance training, Safety education & training, Patient/Caregiver education & training, Equipment evaluation, education, & procurement, Pain management OT Individual Minutes OT Individual Minutes Time In: 0856 Time Out: 0944 Minutes: 48 Time Code Minutes Timed Code Treatment Minutes: 33 Minutes Physical Therapy Facility/Department: [facility] Physical Therapy Initial Assessment Name: Risa Warner : 1975 Date of Service: 07/24/2024 Discharge Recommendations: Home with assist PRN PT Equipment Recommendations Equipment Needed: No Past Medical History: has a past medical [...] other surgical history (09/2022); Colonoscopy (N/A, 12/08/2022); Colonoscopy (12/08/2022); Foot Closed Reduction (Left, 07/23/2024); and Ankle surgery (Left, 07/23/2024). Assessment Body Structures, Functions, Activity Limitations Requiring Skilled Therapeutic Intervention: Decreased functional mobility ;Decreased endurance Assessment: Impaired mobility due to decreased tolerance to activity and NWB status Decision Making: Low Complexity History: Charcot Ankle/ s/p surgery Exam: decreased endurance, mobility Clinical Presentation: evolving Activity Tolerance Activity Tolerance: Patient tolerated evaluation without incident;Patient limited by endurance Plan Physical Therapy Plan General Plan: 1 time a day 7 days a week Current Treatment Recommendations: Gait training, Functional mobility training, Therapeutic activities, Safety education & training, Transfer training, Endurance training Safety Devices Type of Devices: Patient at risk for falls, Left in bed, Call light within reach, Gait belt Restrictions Restrictions/Precautions Restrictions/Precautions: General Precautions, Fall Risk, Weight Bearing Required Braces or Orthoses?: No (External Fixator) Implants present? : (previous has spinal stimulator- but removed) Lower Extremity Weight Bearing Restrictions Left Lower Extremity Weight Bearing: Non Weight Bearing Position Activity Restriction Other position/activity restrictions: L LE external fixator Subjective Pain: 7/10 at rest General Patient assessed for rehabilitation services?: Yes Family / Caregiver Present: No Follows Commands: Within Functional Limits Subjective Subjective: pt cooperative and eager to get up Social/Functional History Social/Functional History Lives With: Spouse Type of Home: House Home Layout: Two level, Able to Live on Main level with bedroom/bathroom, Performs ADL's on one level, Laundry in basement Home Access: Stairs to enter without rails Entrance Stairs - Number of Steps: 3 ADALID to porch, 1 threshold into house, has cement slabs on side of steps has been proppin Bathroom Shower/Tub: Tub/Shower unit, Shower chair with back, Curtain (shower bench) Bathroom Toilet: Standard (sink next to toilet) Bathroom Equipment: Hand-held shower, Grab bars in shower, Tub transfer bench (suction cup grab bars) Bathroom Accessibility: Walker accessible Home Equipment: Crutches, Walker - Rolling, Wheelchair - Manual, Grab bars, Cane (knee scooter) Has the patient had two or more falls in the past year or any fall with injury in the past year?: No Receives Help From: Family ADL Assistance: Independent Homemaking Assistance: Needs assistance (prior to injury, independent with cooking . 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 Lives with . still works. Daughter lives local, Vision/Hearing Vision Vision: Impaired Vision Exceptions: Wears glasses at all times Hearing Hearing: Within functional limits Cognition Orientation Overall Orientation Status: Within Normal Limits Cognition Overall Cognitive Status: WNL Objective O2 Device: None (Room air) AROM RLE (degrees) RLE AROM: WNL AROM LLE (degrees) LLE AROM : WFL LLE General AROM: Hip and Knee Strength RLE Strength RLE: WNL Strength LLE Strength LLE: WFL Comment: Hip and knee Bed mobility Supine to Sit: Stand by assistance Sit to Supine: Stand by assistance Scooting: Stand by assistance Bed Mobility Comments: head of bed elevated Transfers Sit to Stand: Contact guard assistance Stand to Sit: Contact guard assistance Comment: pt stood from bed and toilet Ambulation WB Status: NWB L LE Ambulation Device: Rolling Walker Assistance: Contact guard assistance Distance: 6ft x 2 Balance Sitting - Static: Good Sitting - Dynamic: Good Standing - Static: Fair;+ (SBA with RW) Standing - Dynamic: Fair (CGA with RW) [facility] - Mobility [facility] Basic Mobility - Inpatient How much help is needed turning from your back to your side while in a flat bed without using bedrails?: A Little How much help is needed moving from lying on your back to sitting on the side of a flat bed without using bedrails?: A Little How much help is needed moving to and from a bed to a chair?: A Little How much help is needed standing up from a chair using your arms?: A Little How much help is needed walking in hospital room?: A Little How much help is needed climbing 3-5 steps with a railing?: A Lot [facility] Inpatient Mobility Raw Score : 17 [facility] Inpatient T-Scale Score : 42.13 Mobility Inpatient CMS 0-100% Score: 50.57 Mobility Inpatient CMS G-Code Modifier : CK Goals Short Term Goals Time Frame for Short Term Goals: 2-3 days Short Term Goal 1: mod-I bed mobility Short Term Goal 2: transfers from various surfaces with supervision while NWB Short Term Goal 3: pt able to ambulate 10-15ft with RW/NWB L LE with supervision Short Term Goal 4: pt able to negotiate snee scooter mod-I household distances and mobility Therapy Time Individual Concurrent Group Co-treatment Time In 0856 Time Out 0944 Minutes 48 Timed Code Treatment Minutes: 24 Minutes Tricia Gordon PT Images from the original note were not included. Progress Note Foot and Ankle Surgery Subjective CC: Postoperative admission POD 1 Closed treatment tarsometatarsal dislocation, LEFT Percutaneous fixation tarsal fracture with manipulation Application of multiplanar external fixator Achilles tendon lengthening Interval: Patient seen and examined at bedside. No acute events overnight. Afebrile, vital signs stable, pain controlled Patient resting comfortably with external fixator on left lower extremity Pain protocol includes morphine, Percocet, tramadol. Patient relays that she never got a popliteal block postoperatively and is having significant pain, 7+. Updated Labs: WBC: Lab Results Component Value Date WBC 14.4 (H) 07/24/2024 ESR: Lab Results Component Value Date SEDRATE 25 07/24/2024 CRP: Lab Results Component Value Date CRP 2.8 12/28/2019 HPI : Risa Warner is a 49 y.o. female seen at [facility] for postoperative abdomen after application of a multiplanar external fixator, percutaneous foot excision tarsal fracture, consider lengthening, no close treatment tarsometatarsal dislocation on 07-15-2024. Patient had injury to left lower extremity incidentally after walking where she was seen in [place] ER almost 2 weeks ago. She followed Dr. Knapp with outpatient and was found to have acute Charcot arthropathy event with midfoot dislocation. She was seen in the outpatient setting and set up for outpatient surgery. She is a diabetic smoker with past history of see below. Patient mated postoperatively for further evaluation. ROS: Denies N/V/F/C/SOB/CP. Otherwise negative except at stated in the HPI. Medications: Scheduled Meds: insulin lispro 60 Units SubCUTAneous TID WC sodium chloride flush 5-40 mL IntraVENous 2 times per day enoxaparin 40 mg SubCUTAneous Daily ceFAZolin 2,000 mg IntraVENous Q8H aspirin 81 mg Oral Daily atorvastatin 40 mg Oral Nightly DULoxetine 60 mg Oral Nightly fenofibrate 160 mg Oral Daily fluticasone 2 spray Each Nostril Daily furosemide 20 mg Oral Daily empagliflozin 10 mg Oral Daily cetirizine 10 mg Oral Daily lisinopril 10 mg Oral Daily methocarbamol 500 mg Oral 4x Daily metoprolol succinate 75 mg Oral Daily montelukast 10 mg Oral Nightly pantoprazole 40 mg Oral QAM AC pregabalin 25 mg Oral Daily rOPINIRole 4 mg Oral Nightly traMADol 100 mg Oral BID insulin lispro 0-4 Units SubCUTAneous 4x Daily AC & HS Continuous Infusions: sodium chloride sodium chloride 75 mL/hr at 07/23/24 1914 dextrose PRN Meds:sodium chloride flush, sodium chloride, potassium chloride OR potassium alternative oral replacement OR potassium chloride, magnesium sulfate, ondansetron OR ondansetron, polyethylene glycol, acetaminophen OR acetaminophen, povidone-iodine, morphine, oxyCODONE-acetaminophen OR oxyCODONE-acetaminophen, albuterol sulfate HFA, HYDROcodone-acetaminophen, glucose, dextrose bolus OR dextrose bolus, glucagon (rDNA), dextrose Objective Vitals: Patient Vitals for the past 8 hrs: BP Temp Pulse Resp SpO2 07/24/24 0630 105/64 97.3 F (36.3 C) 90 16 91 % 07/24/24 0305 -- -- -- 16 -- Average, Min, and Max for last 24 hours Vitals: TEMPERATURE: Temp Av F (36.7 C) Min: 97.3 F (36.3 C) Max: 98.7 F (37.1 C) RESPIRATIONS RANGE: Resp Av.2 Min: 10 Max: 19 PULSE RANGE: Pulse Av.2 Min: 84 Max: 97 BLOOD PRESSURE RANGE: Systolic (24hrs), Av , Min:105 , Max:136 ; Diastolic (24hrs), Av, Min:51, Max:72 PULSE OXIMETRY RANGE: SpO2 Av.2 % Min: 91 % Max: 97 % I/O last 3 completed shifts: In: 1400 [I.V.:1400] Out: 1010 [Urine:1000; Blood:10] CBC: Recent Labs 07/24/24 0613 WBC 14.4* HGB 10.8* HCT 33.0* PLT 473* BMP: Recent Labs 07/23/24 1258 07/24/24 0613 NA -- 136 K 5.5* 5.3 CL -- 103 CO2 -- 21 BUN -- 27* CREATININE -- 1.1 GLUCOSE -- 144* CALCIUM -- 9.0 Coags: No results for input(s): APTT , INR in the last 72 hours. Invalid input(s): PROT Lab Results Component Value Date SEDRATE 07/24/2024 No results for input(s): CRP in the last 72 hours. Physical Exam: General: A&Ox3, NAD Heart: Regular rate and rhythm. Lungs: Equal air entry. No increased effort. Abdomen: Soft, non-tender to palpation. Not distended. Physical exam limited due to presence of external fixator. Popliteal pulses palpable. Compartments are soft and compressible. Patient is able to wiggle toes. CFT present and adequate across all digits. Clinical Images: None Imaging: XR TIBIA FIBULA LEFT (2 VIEWS) Final Result Postoperative left leg, ankle and foot radiographs. XR FOOT LEFT (MIN 3 VIEWS) Final Result Postoperative left leg, ankle and foot radiographs. XR ANKLE LEFT (MIN 3 VIEWS) Final Result Postoperative left leg, ankle and foot radiographs. FLUORO FOR SURGICAL PROCEDURES Final Result Cultures: Results No results found for the last 336 hours. Assessment Risa Warner is a 49 y.o. female with Charcot arthropathy with neuropathy, left foot Diabetic peripheral neuropathy Diabetes mellitus type 2 Lisfranc dislocation, left foot Midfoot dislocation, left foot Medial cuneiform fracture, left foot Principal Problem: Charcot ankle, left Active Problems: Controlled type 2 diabetes mellitus with diabetic polyneuropathy, with long-term current use of insulin (HCC) Tobacco abuse Essential hypertension Dyslipidemia Type 2 diabetes mellitus with hyperglycemia (HCC) Fatty liver Closed dislocation of tarsal joint of left foot Multiple closed tarsal fractures, left, initial encounter Closed fracture of tarsal and metatarsal bones of left foot Lisfranc dislocation, left, initial encounter 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) Charcot joint of left foot Acquired posterior equinus, left Post-op pain Resolved Problems: * No resolved hospital problems. * Plan Patient examined and evaluated at bedside. Treatment options discussed in detail with the patient. Medical management per Internal medicine-medication reconciliation IV Ancef every 12 Elevate limb for edema control, nurses to reinforce dressing as needed, ice pain knee. Postoperative dressing intact. Please reinforce with ABDs, 4 x 4, Katlyn as needed PT/OT evaluation She is to be nonweightbearing to the surgical extremity, weightbearing as tolerated to right extremity with assistive device per PT recommendations Follow PT recommendations for home versus facility DC Discussed with Dr. Mike DVT ppx: lovenox Diet: carb control Activity: Nonweightbearing to Left lower extremity Pain Control: panel ordered Urbano Merino DPM Foot and Ankle Surgery 07/24/2024 at 9:47 AM I performed a history and physical examination of the patient and discussed management with the resident. I reviewed the resident s note and agree with the documented findings and plan of care. Any areas of disagreement are noted on the chart. I was personally present for the lezama portions of any procedures. I have documented in the chart those procedures where I was not present during the lezama portions. I have reviewed the Podiatry Resident progress note. I agree with the chief complaint, past medical history, past surgical history, allergies, medications, social and family history as documented unless otherwise noted below. Documentation of the HPI, Physical Exam and Medical Decision Making performed by medical students or scribes is based on my personal performance of the HPI, PE and MDM. I have personally evaluated this patient and have completed at least one if not all lezama elements of the E/M (history, physical exam, and MDM). Additional findings are as noted. Meera Mike DPM on 07/24/2024 at 9:57 AM Board Certified, [employer] Fellow, [employer] Pre op blood sugar 188 documented in this encounter [facility] 07-26-2024 Hospital course Narrative Images from the original note were not included. Discharge Summary Podiatric Medicine and Surgery Patient Identification Risa Warner is a 49 y.o. female : 1975 Acct: [id number] Admit date: 07/23/2024 Discharge date and time: No discharge date for patient encounter. Admitting Physician: Meera Mike DPM Discharge Physician: Sreekanth Weber DPM Admission Diagnoses: Charcot ankle, left [M14.672] Closed dislocation of tarsal joint of left foot [S93.315A] Post-op pain [G89.18] Discharge Diagnoses: Patient Active Problem List Diagnosis Pain in upper limb Diabetic neuropathy (HCC) Fibromyalgia Depression Controlled type 2 diabetes mellitus with diabetic polyneuropathy, with long-term current use of insulin (HCC) Ureteric calculus Gross hematuria History of kidney stones Renal stones Idiopathic acute pancreatitis Hypertriglyceridemia SIRS without infection with organ dysfunction (HCC) Generalized abdominal pain Perirectal abscess Tobacco abuse Essential hypertension Dyslipidemia Type 2 diabetes mellitus with hyperglycemia (HCC) Multiple joint pain Abnormal LFTs Fatty liver Nevus of abdominal wall Acute pneumonia Syncope and collapse Spinal stenosis, lumbar region with neurogenic claudication Primary osteoarthritis, left shoulder Pain in left shoulder Other muscle spasm Myalgia, other site Charcot ankle, left Closed dislocation of tarsal joint of left foot Multiple closed tarsal fractures, left, initial encounter Closed fracture of tarsal and metatarsal bones of left foot Lisfranc dislocation, left, initial encounter 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) Charcot joint of left foot Acquired posterior equinus, left Post-op pain Admission Condition: fair. Discharged Condition: stable. Hospital Course Brief Inpatient Course: Admitted on 07/23/2024 12:12 PM for Charcot ankle, left [M14.672] Closed dislocation of tarsal joint of left foot [S93.315A] Post-op pain [G89.18]. Patient admitted post op for s/p external fixator application, BO, CRPP Lisfranc. She sustained Lisfranc Charcot fracture dislocation that was neglected at outside facility. She was followed outpatient and had this procedure done outpatient. Given appropriate post op pain regiment, will be NWB for 2 weeks with assistive device. Discharge home in [place]. present. Consults: Podiatry, IM, CM, PT OT Patient Instructions Medications: Medication List START taking these medications oxyCODONE-acetaminophen 5-325 MG per tablet Commonly known as: Percocet Take 1 tablet by mouth in the morning and at bedtime for 8 days. Intended supply: 5 days. Take lowest dose possible to manage pain Max Daily Amount: 2 tablets CHANGE how you take these medications acetaminophen 500 MG tablet Commonly known as: TYLENOL Take 1 tablet by mouth 3 times daily for 14 days What changed: when to take this reasons to take this albuterol sulfate HFA 108 (90 Base) MCG/ACT inhaler Commonly known as: PROVENTIL;VENTOLIN;PROAIR INHALE 2 PUFFS BY MOUTH INTO THE LUNGS 4 TIMES DAILY NEEDED FOR WHEEZING What changed: additional instructions HumaLOG KwikPen 200 UNIT/ML Sopn pen Generic drug: insulin lispro INJECT 15 UNITS INTO THE SKIN 3 TIMES DAILY WITH MEALS What changed: See the new instructions. rOPINIRole 4 MG tablet Commonly known as: REQUIP TAKE 1 TABLET DAILY What changed: how much to take how to take this when to take this CONTINUE taking these medications aspirin 81 MG tablet atorvastatin 40 MG tablet Commonly known as: LIPITOR Take 1 tablet by mouth nightly at bedtime. CPAP Machine Misc diclofenac 75 MG EC tablet Commonly known as: VOLTAREN DULoxetine 60 MG extended release capsule Commonly known as: CYMBALTA fenofibrate 145 MG tablet Commonly known as: TRICOR fluticasone 50 MCG/ACT nasal spray Commonly known as: FLONASE instill 2 sprays into each nostril once daily FreeStyle Kena 14 Day Sensor Misc furosemide 20 MG tablet Commonly known as: LASIX Take 1 tablet by mouth daily Insulin Pen Needle 30G X 8 MM Misc 1 each by Does not apply route 5 times daily insulin regular human 500 UNIT/ML concentrated injection vial Commonly known as: humuLIN R U-500 Jardiance 10 MG tablet Generic drug: empagliflozin levocetirizine 5 MG tablet Commonly known as: XYZAL take 1 tablet by mouth every evening lisinopril 10 MG tablet Commonly known as: PRINIVIL;ZESTRIL Take 1 tablet by mouth once daily methocarbamol 500 MG tablet Commonly known as: ROBAXIN metoprolol succinate 50 MG extended release tablet Commonly known as: TOPROL XL Take 1 tablet by mouth daily montelukast 10 MG tablet Commonly known as: SINGULAIR take 1 tablet by mouth at bedtime naloxone 4 MG/0.1ML Liqd nasal spray omeprazole 20 MG delayed release capsule Commonly known as: PRILOSEC Take 1 capsule by mouth Daily pioglitazone 30 MG tablet Commonly known as: ACTOS pregabalin 25 MG capsule Commonly known as: LYRICA traMADol 50 MG tablet Commonly known as: ULTRAM STOP taking these medications HYDROcodone-acetaminophen 5-325 MG per tablet Commonly known as: [place] Where to Get Your Medications These medications were sent to [id number] - [place], [place] - [address] [facility] - P [phone] - F [phone] [place] [id number] acetaminophen 500 MG tablet oxyCODONE-acetaminophen 5-325 MG per tablet These medications were sent to [facility] [address] [place] [address] 18 - P [phone] - F [phone] [place], [place] [id number] albuterol sulfate HFA 108 (90 Base) MCG/ACT inhaler Activity: NWB 2wks. Diet: The patient is asked to make an attempt to improve diet and exercise patterns to aid in medical management of this problem. Disposition: home. Wound Care: keep wound clean and dry.do not change Follow-up: Follow up with Dr. Rashid ROCK 08-07-24, call the office for an appointment. Greater than 40 minutes was spent reviewing pertinent details of patient notes and summarization of the patient's inpatient stay. documented in this encounter [facility] 07-26-2024 Hospital Discharge instructions Sreekanth Weber DPM - 07/26/2024 2:42 PM EDT Images from the original note were not included. Foot and Ankle Surgery Post Operative Instructions: You have had a surgical procedure on your foot/ ankle Fluids and Diet: Begin with clear liquids, broth, dry toast, and crackers. If not nauseated then resume your regular pre-operative diet when you are ready With your history of diabetes, please lower your intake sugar content food as this will negatively impact surgery. Medications: Take your prescriptions as directed Tramadol 100mg 2x daily (morning and night) Percocet 5-325 1x daily (mid day) Tylenol 1000mg, 2x daily Lyrica 25mg Continue home medications You are receiving new prescriptions You received nerve block to the foot-this should manage your pain for the first 18hrs post operatively If your pain is not severe then you may take the non-prescription medication that you normally take for aches and pains ie Tylenol and Ibuprofen (alternating), or if severe pain occurs these will serve as additional medication You may resume your regularly scheduled medications (unless otherwise directed) If you have a fracture or a surgery that involves placing hardware (screws, plates, joint replacement), avoid the routine use of NSAIDs for about 6 months if possible (due to a risk of delayed bone healing). If any side effects or adverse reactions occur, discontinue the medication and contact your doctor. Review the patient drug information that is provided before you take any medication Ambulation and Activity: You are advised to go directly home from the hospital Use assistance device with either crutches, walker, or knee scooter We recommend knee scooter if possible, you can also obtain these on [employer] for rather affordable and quickly obtainable. You may not put weight on the operated foot. You should wear the surgical shoe at all times when awake. Do not excessively walk on the surgical extremity/ foot. Avoid stairs. Do not lift or move heavy objects Do not drive until cleared by your physician Bandage and Wound Care Instructions: Keep bandage clean and dry Do NOT remove dressing/ splint DO NOT get wet Please use shower cover around leg if you do shower so that dressing does not get wet Do not shower or bathe the operative extremity Do not remove the bandage (unless otherwise directed) Do not attempt to put anything between the cast or dressing and your skin, some itching is normal. Ice and Elevation: Elevate operative extremity as much as possible to reduce swelling and discomfort. Elevate with 2 pillows at or above the level of the heart for the first 72 hours. This is important for post operative swelling and pain Ice: Apply Hospital dispensed insulated ice bag over the bandage 20 minutes of every hour while awake for the first 72 hours. You may ice behind the knee as well. Special Instructions: Call your doctor immediately if you develop any of the following. Fever over 100.4 degrees Fahrenheit by mouth - take your temperature daily until your first follow up visit. Pain not relieved by medication ordered Swelling, increased redness, warmth, or hardness around operative area. Numb, tingling or cold toes. Toe(s) become white or bluish Bandage becomes wet, soiled, or blood soaked (small amount of bleeding may be normal) Increased or progressive drainage from surgical area. Follow up instructions: You will need to follow up with Meera Valentino DPM within 7-10 days post operatively Call when you get home to schedule or confirm your appointment. Call your Automatic Spreader Operator office if you have any questions or concerns. documented in this encounter [facility] 07-18-2024 Hospital Discharge instructions Ashanti Harris RN - 07/18/2024 3:01 PM EDT Pre-op Instructions For Patient Being Admitted After Surgery Medication Instructions: Please stop herbs and any supplements now (includes vitamins and minerals). Please contact your surgeon and prescribing physician for pre-op instructions for any blood thinners. Aspirin and Diclofenac If you have inhalers/aerosol treatments at home, please use them the morning of your surgery and bring the inhalers with you to the hospital. Please take the following medications the morning of your surgery with a sip of water: Inhaler, Metoprolol, and Omeprazole. Italia will consult with prescribing physician as to 07/22/24 night dose of Insulin. Per Dr. Herrera, Italia can take her morning dose of Tramadol (100mg) the morning of surgery. Surgery Instructions: After midnight before surgery: Do not eat or drink anything, including water, mints, gum, and hard candy. You may brush your teeth without swallowing. No smoking, chewing tobacco, or street drugs. Please shower or bathe before surgery. If you were given Surgical Scrub Chlorhexidine Gluconate Liquid (CHG), please shower the night before and the morning of your surgery following the detailed instructions you received during your pre-admission visit. Please do not wear any cologne, lotion, powder, deodorant, jewelry, piercings, perfume, makeup, nail maldivian, hair accessories, or hair spray on the day of surgery. Wear loose comfortable clothing. Leave your valuables at home. Bring a storage case for any glasses/contacts. The Day of Surgery: Arrive at [facility] Surgery Entrance at the time directed by your surgeon and check in at the desk. 12:00 pm If you have a living will or healthcare power of employment law attorney, please bring a copy. You will be taken to the pre-op holding area where you will be prepared for surgery. A physical assessment will be performed by a nurse practitioner or dry house tender. Your IV will be started and you will meet your anesthesiologist. When you go to surgery, your family will be directed to the surgical waiting room, where the doctor should speak with them after your surgery. You will be in the recovery room after surgery and taken to your room when you are stable. Please leave your suitcase in the car. Have your family member take it to your room after you are out of recovery. If you use a Bi-PAP or C-PAP machine, please bring it with you and leave it in the car until you are in your room. documented in this encounter [facility] 07-14-2024 Hospital Discharge instructions Jesus Singh DO - 07/14/2024 2:27 AM EDT Podiatry: - Please make a follow-up visit with Dr. Mike outpatient this week for surgical planning - Please keep your splint clean, dry and intact - Weightbearing status: Non-weight bearing to left extremity - Please keep left extremity elevated to reduce swelling - Please return to the hospital if any of the following local signs of infection arise: Increased/streaking redness, pain, swelling, drainage or malodor - Please return to the hospital for any the following systemic signs of infection arise: Nausea, vomiting, fever, chills, diarrhea, shortness of breath or chest pain You have been evaluated in the Emergency Department at [facility] 07/14/2024 Your recommendations and if necessary prescriptions from today's visit: -Follow-up with podiatry as noted above -Take medication as prescribed -Follow-up with your PCP If you do not have a primary care provider, establish care with a provider that you can begin to regularly follow-up with. Should you have any questions regarding your care or further treatment, please call [facility] Emergency Department at [phone]. PLEASE RETURN TO THE EMERGENCY DEPARTMENT IMMEDIATELY for -Numbness, tingling, weakness, significant pain not controlled at home OR -Changing symptoms -Worsening symptoms -Unable to follow up with your primary care provider -Any other care or concern documented in this encounter [facility] 06-12-2024 Note This is a Telehealth Appointment [...] she follows with a GI specialist in [place]. Due to this has not tolerated several [...] repeat rule of 15's. -Continue to eat 0019-9695 calories per day. Best to consume calories divided into 3 meals per day. Avoid all sugared pop and other sweet drinks. Eat less sweet, white, and fast foods. -Continue to exercise as frequently as possible. Recommend at least 10,000 steps per day. When possible engage in moderate to inten (more content not included)... [facility] 04-23-2024 History of Present illness Narrative [facility] Outpatient Physical Therapy Daily Note Patient: Risa Warner : 1975 CSN #: [id number] Referring Physician: No ref. provider found Date: 04/23/2024 Diagnosis: M79.7 fibromyalgia; L shoulder pain, M25.512 Treatment Diagnosis: chronic low back pain; L shoulder pain Onset Date: 12/08/23 PT Insurance Information: [address] Total # of Visits Approved: 24 Per [...] 15x; L upper trap and scalenes stretch [id number] Exercise 8: Corner pec stretch [id number] Exercise 9: UBE -4/4 Exercise 10: pulleys [...] ROM exercises to improve L shoulder mobility.-progressing Clinical Assistant Goals Time Frame for Clinical Assistant Goals : 4 weeks Prison Goal 1: Pt will be safe and independent with her HEP Clinical Assistant Goal 2: Pt will increase lumbar AROM to WFL in order to reduce low back pain Prison Goal 4: Pt will report 25% improvement in symptoms in order to improve quality of life Clinical Assistant Goal 5: Added 03/30: Patient to have improved L shoulder AROM equal to R shoulder ROM all planes with no increase in pain for improved functional mobility. joint terminal attack controller goal 6: Added 03/30: Patient to have improved L shoulder strength >/=4/5 grossly all planes for improved stability. Minutes Tracking: Time In: 1315 Time Out: 1417 Minutes: 62 Phu Welsh Date: 04/23/2024 documented in this encounter [facility] 04-12-2024 History of Present illness Narrative [facility] Outpatient Physical Therapy Daily Note Patient: Risa Warner : 1975 CSN #: [id number] Referring Physician: No ref. provider found Date: 04/12/2024 Treatment Diagnosis: chronic low back pain; L shoulder pain Onset Date: 12/08/23 PT Insurance Information: [address] Total # of Visits Approved: 24 Per [...] 15x; L upper trap and scalenes stretch [id number] Exercise 8: Corner pec stretch [id number] Exercise 9: Supine PPT/ Bridge/ supine clam [...] required further clarification. Post Treatment Pain: 6 Plan Plan Frequency: 2x/wk Plan weeks: 6 [...] ROM exercises to improve L shoulder mobility.-progressing Prison Goals Time Frame for Prison Goals : 4 weeks Clinical Assistant Goal 1: Pt will be safe and independent with her HEP Prison Goal 2: Pt will increase lumbar AROM to WFL in order to reduce low back pain Clinical Assistant Goal 3: Pt will increase BLE strength to >/=4/5 and core strength to Good in order to increase ambulation tolerance Prison Goal 4: Pt will report 25% improvement in symptoms in order to improve quality of life Prison Goal 5: Added 03/30: Patient to have improved L shoulder AROM equal to R shoulder ROM all planes with no increase in pain for improved functional mobility. senior care goal 6: Added 03/30: Patient to have improved L shoulder strength >/=4/5 grossly all planes for improved stability. Minutes Tracking: Time In: 1300 Time Out: 1347 Minutes: 47 Génesis Hickman PTA Date: 04/12/2024 documented in this encounter [facility] 03-06-2024 Note This is a Telehealth Appointment [...] she follows with a GI specialist in [place]. Due to this has not tolerated several [...] tend to occur in the late evening early childhood assistant time 11pm - 4 to 5 AM. Patient completed A1c at [facility] yesterday and notes result was [...] repeat rule of 15's. -Continue to eat 5100-4411 calories per day. Best to consume calories divided into 3 meals per day. Avoid all sugared pop and other sweet drinks. Eat less sweet, white, and fast foods. -Continue to exercise as frequently as possible. Recommend at least 10,000 steps per day. When possible engage in moderate to intense aerobic activity with goals of increasing HR. -Record blood suga (more content not included)... [facility] 03-01-2024 History of Present illness Narrative [facility] Inpatient/Observation/Outpatient Rehabilitation Date: 03/01/2024 Patient Name: Risa Warner [x] Outpatient : 1975 02/24/24 Plan of Care/Recert ends [x] Pt cancelled due to: [x] Sick/ill Therapist/Precipitator Supervisor will attempt to see this patient, at our earliest opportunity. Lary Rea, STEEL TIER Date: 03/01/2024 documented in this encounter [facility] 06-16-2023 Hospital Discharge instructions Vicki Finnegan PA-C - 06/16/2023 8:31 PM EDT Follow-up with your running specialist Dr. Marie for your syncope. Also follow-up with your neurologist for your syncope. Make sure you are drinking plenty of fluids, getting up slowly and cautiously, and being careful of your position with coughing. Testing today is improved. The following attachments cannot be sent through Care Everywhere.Fainting (Trinidadian)documented in this encounter [facility] 06-14-2023 History of Present illness Narrative Discharge instructions, follow up appointment and medications reviewed with the patient and spouse and appropriate educational materials and side effects teaching were provided. Physician Progress Note PATIENT: RISA WARNER CSN #: [id number] : 1975 ADMIT DATE: 06/10/2023 8:42 PM [...] you! Chauncey Colunga, BSN,RN, CRCR RN Clinical Mortgage Banker Options provided: -- Sepsis due to pneumonia [...] MD 06/14/2023 11:51 AM Physical Therapy Facility/Department: [facility] Daily Treatment Note NAME: Risa Warner : 1975 Date of Service: 06/14/2023 Discharge Recommendations: Continue to assess pending progress Patient Diagnosis(es): The primary encounter diagnosis was Recurrent syncope. A diagnosis of Pneumonia of both lower lobes due to infectious organism was also pertinent to this visit. Assessment Assessment: PT. able to ambulate [id number] with no AD, SBA for safety with [...] walking the rich. Asking about being discharged. Rn Family Practice at bedside for shift assessment. Patient sitting up in bed, respirations are even and unlabored while on room air. Vitals obtained and assessment completed, see flowsheet for details. Medications given, see MAR for details. Snacks and fresh water provided. pt denies further needs at this time. Call light in reach. Physical Therapy Facility/Department: [facility] Daily Treatment Note NAME: Risa Warner : 1975 Date of Service: 06/13/2023 Discharge Recommendations: Continue to assess pending progress Patient Diagnosis(es): The primary encounter diagnosis was Recurrent syncope. A diagnosis of Pneumonia of both lower lobes due to infectious organism was also pertinent to this visit. Assessment Assessment: Pt. able to ambulate with no AD, [id number] with one noted imbalance, able to self [...] 33 Génesis Hickman PTA Occupational Therapy Facility/Department: [facility] Daily Treatment Note [...] Minutes 27 AGNES Mathias Physical Therapy Facility/Department: [facility] Daily Treatment Note NAME: Risa Warner : 1975 Date of Service: 06/13/2023 Discharge Recommendations: Continue to assess pending progress Patient Diagnosis(es): The primary encounter diagnosis was Recurrent syncope. A diagnosis of Pneumonia of both lower lobes due to infectious organism was also pertinent to this visit. Assessment Assessment: Pt. able to ambulate with no AD, [id number] with no nted OB and required one [...] Group Co-treatment Time In 0736 Time Out 0803 Minutes 27 Génesis Hickman PTA Comprehensive Nutrition [...] muscle mass loss Fluid Accumulation: Mild Extremities Stage Set Up Worker Strength: Not Performed Nutrition Assessment: Altered nutrition related labs r/t endocrine dysfunction, AEB glucose excursions on steroid with known diabetes. Improving A1C over time, down to 8.1. Asked provider to be on regular diet to choose for herself, which was granted. Weight consistently elevated/obese with mild fluctuations. 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 Nutrition Related Findings: obese, trace LLE edema. Wound Type: None Current Nutrition Intake & Therapies: Average Meal Intake: 76-100% Average Supplements Intake: None Ordered ADULT DIET; Regular Anthropometric Measures: Height: 5' 6 (167.6 cm) [place] Body Weight (IBW): 130 lbs (59 kg) [...] Used for Energy Requirements: Current Energy (kcal/day): 3988-4475 (15-18) Weight Used for Protein Requirements: [place] Protein (g/day): 71-83 (1.2-1.4) Method Used for [...] this time [address], [place] Contact: [phone] Progress Note SUBJECTIVE: Patient seen for f/u [...] Diagnostic Data: Complete Blood Count: Recent Labs 06/11/2353406/12/23 0535 06/13/23 0600 WBC 12.6* 16.4* 13.4* RBC 3.80* 3.54* 3.91* HGB 12.0 11.2* 12.2 HCT 37.6 34.5* 38.0 MCV 98.9 97.5 97.2 MCH 31.6 31.6 31.2 MCHC 31.9 32.5 32.1 RDW 14.0 13.7 13.6 PLT 297 367 226 MPV 9.4 10.6 9.5 Last 3 Blood Glucose: Recent Labs 06/10/23210606/11/2353406/12/23 0535 06/13/23 0600 GLUCOSE 109* 153* 295* 199* Comprehensive Metabolic Profile: Recent Labs 06/10/23210606/11/2353406/12/2335 06/13/23 0600 NA 139 141 135 138 [...] Jardiance, Humulin R Nutrition status: obesity, non-morbid Reconciliation Specialist consult initiated Hospital Prophylaxis: DVT: Lovenox Stress Ulcer: H2 Tana Disposition: Shared decision making: All test results, treatment options and disposition options were discussed with the patient today Social determinants of health that may impact management: none Code status: Full Code Disposition: Discharge plan is pending [facility] Advanced Care Planning documentation: [x] I have [...] the patient's medical record. [DOES NOT SATISFY [facility] PERFORMANCE] Shelley Champagne APRN - [place]ES , JOSSE, SCUBA DIVING TEACHER-C Hospitalist Medicine 06/13/2023, 9:10 AM Associated attestation - Bubba Hudson MD - 06/13/2023 5:31 PM EDT Images from the original note were not included. [address] , [place], [place], [address] Attestation Patient: Risa Warner Date of Admission: 06/10/2023 8:42 PM Hospital Day # 3 Date of Evaluation: 06/13/2023 I personally evaluated and examined the patient [id number] in conjunction with the PA/SCUBA DIVING TEACHER and agree with the management and dispostition of the patient. Please see the PA/SCUBA DIVING TEACHER's note for full details. My lezama findings [...] with the plan as outlined in the SCUBA DIVING TEACHER/PA's note Disposition: Discharge plan is pending Please note that this chart was generated using voice recognition Blink Messengeron dictation software. Although every effort was made to ensure the accuracy of this automated blade changer, some errors in blade changer may have occurred. Bubba Hudson MD 06/13/2023 [...] Value Date/Time PHART 7.293 07/02/2013 04:20 PM UCW9KZH 36.8 07/02/2013 04:20 PM PO2ART 70.6 07/02/2013 04:20 PM O6QPHZWF 92.6 07/02/2013 04:20 PM VMF0JCM 17.4 07/02/2013 04:20 PM PBEA NOT REPORTED [...] up in the bed watching TV when real estate underwriter entered the room. Pt is A&O x4. Vitals and assessment as charted. Pt rated her pain a 6 out of 10 in her head. Tramadol 50mg PO given. Pt also requested cough medicine. Pt given Tessalon 100mg PO. Pt denies any further needs at this time. Call light within reach. Occupational Therapy Facility/Department: [facility] Daily Treatment Note [...] from the original note were not included. [address], [place], [place], [address] Progress Note Date: 06/12/2023 Patient name: Risa [...] 03/24/23 09/20/23 JOSSE King CNP CPAP Machine [facility] by Does not apply route Historical Provider, fenofibrate (TRICOR) 54 MG tablet take 1 tablet by mouth once daily 03/14/23 Chen Rocha PA-C traMADol (ULTRAM) 50 MG tablet [...] Gluc Sensor (FREESTYLE KENA 14 DAY SENSOR) [facility] 01/28/21 Historical Provider, DULoxetine (CYMBALTA) 60 MG extended release capsule Take 1 capsule by mouth nightly 01/29/21 Historical Provider, MD CHILDRESSALOG KWIKPEN 200 UNIT/ML SOPN pen INJECT 15 [...] not apply route 5 times daily 02/28/19 Vivian Oseguera APRN - HOME CARE MANAGER aspirin 81 MG tablet Take 1 tablet by mouth daily Historical Provider, rOPINIRole (REQUIP) 4 MG tablet TAKE 1 TABLET DAILY Patient taking differently: nightly 11/03/15 Leola Burns MD ALLERGIES: Pcn [penicillins] OBJECTIVE: Vitals: 06/11/23201006/11/23202906/12/2345506/12/23 0523 BP: (!) 106/46 Pulse: 99 (!) [...] clubbing or edema DIAGNOSTICS: Laboratory Testing: See [facility] EMR for lab data Recent [...] PRN Bubba Hudson MD 5 mL at 06/11/23 1655 guaiFENesin [...] Bubba Hudson MD 500 mg at 06/12/23 000 gabapentin (NEURONTIN) capsule 600 mg 600 mg Oral TID Bubba Hudson MD 600 mg at 06/11/232026 fenofibrate (TRIGLIDE) tablet 160 mg 160 mg Oral Daily Bubba Hudson MD 160 mg at 06/11/23234 cetirizine (ZYRTEC) tablet 10 mg 10 mg Oral Daily Bubba Hudson MD 10 mg at 06/11/23233 ipratropium 0.5 mg-albuterol 2.5 mg (DUONEB) nebulizer solution 1 Dose 1 Dose Inhalation 4x daily Bubba Hudson MD 1 Dose at 06/12/23 0523 albuterol [...] vial 0-16 Units 0-16 Units SubCUTAneous TID Bubba Hudson MD 16 Units at 06/11/231654 insulin lispro (HUMALOG) injection vial 0-4 Units 0-4 Units SubCUTAneous Nightly Bubba Hudson MD 4 Units at 06/11/232023 insulin regular human (humuLIN R U-500 KWIKPEN) 500 UNIT/ML concentrated injection pen 100 Units (Patient Supplied) 100 Units SubCUTAneous BID Bubba Hudson MD 100 Units at 06/11/231651 insulin lispro (HUMALOG) injection vial 15 Units 15 Units SubCUTAneous TID Bubba Hudson MD 15 Units at 06/11/231655 glucose chewable [...] this chart was generated using voice recognition Streetcar dictation software. Although every effort was made to ensure the accuracy of this automated blade changer, some errors in blade changer may have occurred. Bubba Hudson MD 06/12/2023 [...] Pt has 2 insulin pens locked in senior front end engineer room. Only using the Humulin 500. Pt stated after being asked where the needles are there is already one on it real estate underwriter asked you reuse your needles? Pt [...] pearls also given for cough. Told pt real estate underwriter would update for any changes. Occupational Therapy Facility/Department: [facility] Occupational Therapy Initial [...] Ambulation Assistance: Independent Transfer Assistance: Independent Active Veneer Department Manager: Yes Objective Safety Devices Type of Devices: [...] Inpatient CMS G-Code Modifier : CK (06/11/23 150) Goals Short Term Goals Time Frame for [...] 15 Ivet Rinaldi OT Physical Therapy Facility/Department: [facility] Physical Therapy Initial [...] time. Care ongoing. Orthostatic BPs completed by real estate underwriter at this time as patient was c/o of multiple episodes of syncope and collapse at home. Patient arrived to [facility], room 315, at this time via wheelchair. Patient independently stood and ambulated to bed. Patient is alert and orientated and on 2L of nasal cannula O2. Patient does NOT normally wear O2 at home. Weight was obtained. documented in this encounter [facility] 12-30-2022 Note CONSULTATION CONSULTATION DATE: 12/30/2022 [...] our patients to inform us about any uoqe-iyv-lotlwwh medications or herbal remedies/nutritional supplements/alternative remedies. 2. [...] options with their primary care provider. [facility] 12-08-2022 History of Present illness Narrative Discharge [...] of surgery. documented in this encounter [facility] [employer] Phone: 12-08-2022 Hospital Discharge instructions Makayla Ji [...] Emergency Room. [facility] 11-30-2022 Note CONSULTATION CONSULTATION DATE: 11/30/2022 [...] after she undergoes the imaging studies. [facility] 11-23-2022 History of Present illness Narrative Patient arrived for home sleep study. Instructed on home sleep monitoring device use and benefits. documented in this encounter [facility] [employer] Work Phone: 10-21-2022 Note CONSULTATION CONSULTATION DATE: 10/21/2022 HISTORY OF PRESENT ILLNESS: This is a 47-year-old female who returns to the clinic status post thoracic RFA bilaterally of T9, T10 and T11, T12. This was completed on 09/14/2022 and has afforded her significant relief. On the 04 of October, patient had her spinal stimulator removed by Dr. Sherman in [place]. Overall, she is feeling increased relief, but [...] followed up in the clinic thereafter. [facility] 10-08-2022 History of Present illness Narrative Patient instructed on extended telemetry monitor indications and use. Diary sent with patient. documented in this encounter [facility] [employer] Work Phone: 09-29-2022 History of Present illness Narrative Instructed on objectives and procedure of a tilt study documented in this encounter [facility] Work Phone: 09-07-2022 Evaluation note Encounter Date Diagnosis [...] would like to proceed with surgical intervention [employer] 12-01-2022 NoteCONSULTATION CONSULTATION DATE: 08/26/2022 HISTORY [...] appointment on 09/07/[address] Sherman in [place] to discuss removal of her nerve stimulator. She is diabetic with the most recent A1c being 7.8 as of yesterday. This is a great improvement for her. Medications include diclofenac 75 mg b.i.d., Requip 4 mg daily, duloxetine, gabapentin, baclofen and [place] 5/325 b.i.d. The patient is inquiring about returning to tramadol, as she felt she got better pain relief with the tramadol over the [place]. Current pain at rest today is 4/10; [...] post procedure and agrees to move forward.[facility] 08-06-2022 History of Present illness Narrative* Vineet Matos PT - 08/06/2022 1:15 PM EST No [...] passes to continue with aquatic exercises. Vineet Matos PT, DPT [facility] [employer] Work Phone: 1(979) 987-246511-03-2022 NoteCONSULTATION CONSULTATION DATE: 07/29/2022 HISTORY OF PRESENT [...] have this removed by Dr. Sherman in [place] on 09/07/2022. She was last seen on 04/29/2022 which, at that time, she was just starting physical therapy as prescribed by her spray foam installer. She feels, between ground and the pool [...] followed up in the office post procedure.[id number] History of Present illness Narrative* Mulu Mccray PTA - 07/19/2022 4:30 PM EDT [facility] Outpatient Physical Therapy Daily Note Patient: Risa Warner : 1975 CSN #: [id number] Referring Physician: Sam Hidalgo MD Date: 07/19/2022 Diagnosis: Other LBP, M54.59, pain in unspecified hip, M25.559 Treatment Diagnosis: Decreased activity endurance, trochanteric bursitis, chronic LBP PT Insurance Information: [address] Total # of Visits Approved: 20 Per [...] exercise to improve endurance for ADLs. -met Clinical Assistant Goals Time Frame for Clinical Assistant Goals : 4 weeks Clinical Assistant Goal 1: Patient will be independent and compliant with a HEP -met Clinical Assistant Goal 2: Patient will improve bilateral hip ROM to 90* for ADLs Clinical Assistant Goal 3: Patient will improve bilateral LE strength to >/= 4/5 for ADLs. Clinical Assistant Goal 4: Patient will improve 5 time sit to stand test time to <30 seconds to indicate improved muscular power Clinical Assistant Goal 5: The patient will improve ambulation endurance to be able to ambulate >300' before requiring a seated rest break. Minutes Tracking: Time In: 1611 Time Out: 1705 Minutes: 54 Timed Code Treatment Minutes: 51 Minutes Mulu Shazia, STEEL TIER [id number] Date: 07/19/2022 [facility] Work Phone: 1(684) 119-198210-21-2022 History of Present illness Narrative* Vineet Matos PT - 07/16/2022 2:45 PM EDT [facility] Outpatient Physical Therapy Daily Note Patient: Risa Warner : 1975 CSN #: [id number] Referring Physician: Sam Hidalgo MD Date: 07/16/2022 Treatment Diagnosis: Decreased activity endurance, trochanteric bursitis, chronic LBP PT Insurance Information: [address] Total # of Visits Approved: 20 Per [...] exercise to improve endurance for ADLs. -met Prison Goals Time Frame for Clinical Assistant Goals : 4 weeks Clinical Assistant Goal 1: Patient will be independent and compliant with a HEP -met Clinical Assistant Goal 2: Patient will improve bilateral hip ROM to 90* for ADLs Prison Goal 3: Patient will improve bilateral LE strength to >/= 4/5 for ADLs. Clinical Assistant Goal 4: Patient will improve 5 time sit to stand test time to <30 seconds to indicate improved muscular power Prison Goal 5: The patient will improve ambulation endurance to be able to ambulate >300' before requiring a seated rest break. Minutes Tracking: Time In: 1445 Time Out: 1530 Minutes: 45 Timed Code Treatment Minutes: 43 Minutes Vineet Matos PT, DPT Date: 07/16/2022 [facility] [employer] Work Phone: 1(906) 791-262310-17-2022 History of Present illness Narrative* Mulu Mccray, STEEL TIER - 07/12/2022 2:15 PM EDT [facility] Outpatient Physical Therapy Daily Note Patient: Risa Warner : 1975 CSN #: [id number] Referring Physician: Sam Hidalgo MD Date: 07/12/2022 Treatment Diagnosis: Decreased activity endurance, trochanteric bursitis, chronic LBP PT Insurance Information: [address] Total # of Visits Approved: 20 Per [...] exercise to improve endurance for ADLs. -met Prison Goals Time Frame for Clinical Assistant Goals : 4 weeks Clinical Assistant Goal 1: Patient will be independent and compliant with a HEP -met Prison Goal 2: Patient will improve bilateral hip ROM to 90* for ADLs Prison Goal 3: Patient will improve bilateral LE strength to >/= 4/5 for ADLs. Prison Goal 4: Patient will improve 5 time sit to stand test time to <30 seconds to indicate improved muscular power Clinical Assistant Goal 5: The patient will improve ambulation endurance to be able to ambulate >300' before requiring a seated rest break. Minutes Tracking: Time In: 1411 Time Out: 1457 Minutes: 46 Timed Code Treatment Minutes: 44 Minutes [facility] Mulu Mccray, STEEL TIER [id number] Date: 07/12/[address] [employer] Phone: 1(704) 351-686110-10-2022 History of Present illness Narrative* Karrie Beltran PTA - 07/05/2022 3:00 PM EDT [facility] Outpatient Physical Therapy Daily Note Patient: Risa Warner : 1975 CSN #: [id number] Referring Physician: Sam Hidalgo MD Date: 07/05/2022 Treatment Diagnosis: Decreased activity endurance, trochanteric bursitis, chronic LBP PT Insurance Information: [address] Total # of Visits Approved: 20 Per [...] exercise to improve endurance for ADLs. -met Clinical Assistant Goals Time Frame for Clinical Assistant Goals : 4 weeks Prison Goal 1: Patient will be independent and compliant with a HEP -met Clinical Assistant Goal 2: Patient will improve bilateral hip ROM to 90* for ADLs Prison Goal 3: Patient will improve bilateral LE strength to >/= 4/5 for ADLs. Clinical Assistant Goal 4: Patient will improve 5 time sit to stand test time to <30 seconds to indicate improved muscular power Clinical Assistant Goal 5: The patient will improve ambulation endurance to be able to ambulate >300' before requiring a seated rest break. Minutes Tracking: Time In: 1500 Time Out: 1543 Minutes: 43 Karrie OzunaMILAGROS lopez Date: 07/05/2022 documented in this encounterBON [facility]ITALSkyl[facility] Phone: [phone]) 411-291310-07-2022 History of Present illness Narrative* Vineet Matos PT - 07/02/2022 10:00 AM EDT [facility] Outpatient Physical Therapy Daily Note Patient: Risa Warner : 1975 CSN #: [id number] Referring Physician: Sam Hidalgo MD Date: 07/02/2022 Treatment Diagnosis: Decreased activity endurance, trochanteric bursitis, chronic LBP PT Insurance Information: [address] Total # of Visits Approved: 20 Per [...] exercise to improve endurance for ADLs. -met Clinical Assistant Goals Time Frame for Clinical Assistant Goals : 4 weeks Prison Goal 1: Patient will be independent and compliant with a HEP Prison Goal 2: Patient will improve bilateral hip ROM to 90* for ADLs Clinical Assistant Goal 3: Patient will improve bilateral LE strength to >/= 4/5 for ADLs. Clinical Assistant Goal 4: Patient will improve 5 time sit to stand test time to <30 seconds to indicate improved muscular power Clinical Assistant Goal 5: The patient will improve ambulation endurance to be able to ambulate >300' before requiring a seated rest break. Minutes Tracking: Time In: 1000 Time Out: 1045 Minutes: 45 Timed Code Treatment Minutes: 43 Minutes Vineet Matos PT, DPT Date: 07/02/[address] [employer] Phone: [phone]) 749-102110-03-2022 History of Present illness Narrative* Karrie Beltran PTA - 06/28/2022 3:00 PM EDT [facility] Outpatient Physical Therapy Daily Note Patient: Risa Warner : 1975 CSN #: [id number] Referring Physician: Sam Hidalgo MD Date: 06/28/2022 Treatment Diagnosis: Decreased activity endurance, trochanteric bursitis, chronic LBP PT Insurance Information: [address] Total # of Visits Approved: 20 Per [...] exercise to improve endurance for ADLs. -met Clinical Assistant Goals Time Frame for Clinical Assistant Goals : 4 weeks Prison Goal 1: Patient will be independent and compliant with a HEP Prison Goal 2: Patient will improve bilateral hip ROM to 90* for ADLs Prison Goal 3: Patient will improve bilateral LE strength to >/= 4/5 for ADLs. Prison Goal 4: Patient will improve 5 time sit to stand test time to <30 seconds to indicate improved muscular power Clinical Assistant Goal 5: The patient will improve ambulation endurance to be able to ambulate >300' before requiring a seated rest break. Minutes Tracking: Time In: 1502 Time Out: 1542 Minutes: 40 Karrie Beltran, STEEL TIER Date: 06/28/2022 documented in this encounterBON [facility] HOSPITALCampalyst [facility] [employer] Work Phone: [phone]) 799-752909-23-2022 History of Present illness Narrative* Karrie Beltran, STEEL TIER - 06/18/2022 1:30 PM EDT [facility] Outpatient Physical Therapy Daily Note Patient: Risa Warner : 1975 CSN #: [id number] Referring Physician: Sam Hidalgo MD Date: 06/18/2022 Treatment Diagnosis: Decreased activity endurance, trochanteric bursitis, chronic LBP PT Insurance Information: [address] Total # of Visits Approved: 12 Per [...] exercise to improve endurance for ADLs. -met Clinical Assistant Goals Time Frame for senior care goals : 4 weeks senior care goal 1: Patient will be independent and compliant with a HEP joint terminal attack controller goal 2: Patient will improve bilateral hip ROM to 90* for ADLs senior care goal 3: Patient will improve bilateral LE strength to >/= 4/5 for ADLs. joint terminal attack controller goal 4: Patient will improve 5 time sit to stand test time to <30 seconds to indicate improved muscular power senior care goal 5: The patient will improve ambulation endurance to be able to ambulate >300' before requiring a seated rest break. Minutes Tracking: Time In: 1332 Time Out: 1406 Minutes: 34 Karrie Beltran PTA Date: 06/18/[address] [employer] Phone: 1(254) 158-773409-19-2022 History of Present illness Narrative* Karrie Beltran PTA - 06/14/2022 3:00 PM EDT [facility] Outpatient Physical Therapy Daily Note Patient: Risa Warner : 1975 CSN #: [id number] Referring Physician: Sam Hidalgo MD Date: 06/14/2022 Treatment Diagnosis: Decreased activity endurance, trochanteric bursitis, chronic LBP PT Insurance Information: [address] Total # of Visits Approved: 12 Per [...] exercise to improve endurance for ADLs. -met Prison Goals Time Frame for joint terminal attack controller goals : 4 weeks joint terminal attack controller goal 1: Patient will be independent and compliant with a HEP joint terminal attack controller goal 2: Patient will improve bilateral hip ROM to 90* for ADLs senior care goal 3: Patient will improve bilateral LE strength to >/= 4/5 for ADLs. senior care goal 4: Patient will improve 5 time sit to stand test time to <30 seconds to indicate improved muscular power senior care goal 5: The patient will improve ambulation endurance to be able to ambulate >300' before requiring a seated rest break. Minutes Tracking: Time In: 1515 Time Out: 1545 Minutes: 30 Karrie Beltran PTA Date: 06/14/2022 documented in this encounterBON [facility] Work Phone: [phone]) 445-825609-07-2022 History of Present illness Narrative* Cristina Antonio - 06/02/2022 1:45 PM EDT [facility] Inpatient/Observation/Outpatient Rehabilitation Date: 06/02/2022 Patient Name: Risa Warner [] Inpatient Acute/Observation [] Outpatient : 1975 [] Pt no showed for scheduled appointment [] Pt refused/declined therapy at this time due to: [x] Pt cancelled due to: [] No Reason Given [] Sick/ill [] Other: Has 2 open wounds cx today and tuesday Therapist/Precipitator Supervisor will attempt to see this patient, at our earliest opportunity. Cristina Antonio Date: 06/02/[address] [employer] Phone: 1(232) 749-194808-30-2022 History of Present illness Narrative* Nathan Garcia, PT - 05/25/2022 2:45 PM EDT [facility] Outpatient Physical Therapy Daily Note Patient: Risa Warner : 1975 CSN #: [id number] Referring Physician: Sam Hidalgo MD Date: 05/25/2022 [...] pt required further clarification. Post Treatment Pain: 7-8/10 Plan Plan Frequency: 2-3 Plan weeks: 4-6 Goals (Total # of Visits to Date: 2) Short Term Goals Time Frame for Short term goals: 2 weeks Short term goal 1: Patient will be initiated with a HEP Short term goal 2: Patient will tolerate 30 min of aquatic exercise to improve endurance for ADLs. Prison Goals Time Frame for senior care goals : 4 weeks senior care goal 1: Patient will be independent and compliant with a HEP joint terminal attack controller goal 2: Patient will improve bilateral hip ROM to 90* for ADLs joint terminal attack controller goal 3: Patient will improve bilateral LE strength to >/= 4/5 for ADLs. joint terminal attack controller goal 4: Patient will improve 5 time sit to stand test time to <30 seconds to indicate improved muscular power senior care goal 5: The patient will improve ambulation endurance to be able to ambulate >300' before requiring a seated rest break. Minutes Tracking: Time In: 1446 Time Out: 1543 Minutes: 57 Timed Code Treatment Minutes: 54 Minutes Nathan Garcia PT Date: 05/25/[address] [employer] Work Phone: [phone]) 246-361408-04-2022 NoteCONSULTATION CONSULTATION DATE: 04/29/2022 HISTORY OF PRESENT [...] fatty liver disease. She recently saw her spray foam installer and was prescribed physical therapy. The patient [...] indicated and patient agrees with this plan.[facility] [id number] NoteCONSULTATION CONSULTATION DATE: 04/01/2022 This is a [...] is also under the care of her spray foam installer who community case manager her fibromyalgia. She feels very flared [...] will discontinue the Tramadol, change it to [place] 5/325 b.i.d. contingent upon the patient bringing [...] be followed up in the office post-procedure. [facility] Signed and Approved by: KEILY CLEMENTS . 04/08/2022 09:47:00[facility]07-07-2022 Note [facility] Vascular Lower Arterial Plethysmography Procedure Patient Name TIMMY Date of Study 03/31/2022 RISA Cooper Date of 1975 Gender Female Age 47 year(s) Race Room Number Corporate ID [id number] # Patient Acct [id number] # MR # [id number] Lactation Specialist Vicki Spicer RVT Interpreting Physician Ruddy Mallory [...] ! !!107 !0.8 ! ! +---------++--------+-----+ ++--------+-----+ +[facility] [id number] History of Present illness Narrative* Corrine Guerra RN - 03/03/2021 11:00 AM EDT Patient ordered stress echo test. The patient is unable to walk due to back and leg issues. Talked with ordering physician and changed to Lexiscan nuclear stress test. Patient verbalizes agreement. documented [facility] this [facility] Work Phone: [phone]) 172-699204-27-2021 History of Present illness Narrative* Yamel Guadarrama [...] recovered for 2 hours. documented in this [facility] hospitalnewBrandAnalytics Phone: [phone]) [phone] Hospital Discharge instructions* Instructions* Yamel Guadarrama RN [...] your doctor if you can take an [id number] medicine. If you think your pain medicine [...] Where can you learn more? Go to [email or web address] and sign in to your Trustpilot account. Enter P586 in the Search Health Information box to learn more about Lumbar Puncture: What to Expect at Home. If you do not have an account, please click on the Sign Up Now link. [id number] [employer]. Care instructions adapted under license by [facility]. This care instruction is for use with your licensed healthcare professional. If you have questions about amedical condition or this instruction, always ask your healthcare professional. [employer] disclaims any warranty or liability for your use of this information. Content Version: 11.0.398828; Current as of: November 14, 2015 * Attachments The following attachments cannot be sent through Care Everywhere. * Myelogram (Trinidadian) documented in this [facility] [employer] Work Phone: 1(269) 527-553603-11-2021 NotePatient Outreach (COVAMN) RISA WARNER ([id number]) 1975 F Date Time Provider Department 12/04/20 [facility] During your visit today, we recorded the following information about you: Allergies As of Date: 12/04/2020 Noted Allergy Reaction PENICILLINS 06/27/2009 2 - Rash Date Reviewed: 12/28/2019 Reviewed by: Johnathan Milner - Fully Assessed Order(s):SARS-COVID VACCINE 1ST DOSE APPT [[id number]] Order #: [id number] FUTURE Prescriptions as of 12/04/2020 Sig: TIZANIDINE [...] Encounter Status:Closed by JUAN FRANCISCO JUSTICE on 12/08/20[facility] Evaluation note* Diagnosis DDD (degenerative disc disease), lumbar Degeneration of lumbar or lumbosacral intervertebral disc documented in this encounter [employer] Phone: evaluation note* Diagnosis Renal stones Calculus of kidney Renal colic documented in this encounter [employer] Phone: evaluation note* Diagnosis Renal stones Calculus of kidney documented in this encounter [employer] Phone: evaluation note* Diagnosis Hepatomegaly documented in this encounter [employer] Phone: evalmiktss note* Diagnosis Essential hypertension Unspecified essential hypertension Chest discomfort Other chest pain Hyperlipidemia, unspecified hyperlipidemia type Tobacco abuse Tobacco use disorder documented in this encounter [employer] Phone: evaluation note* Diagnosis Abnormal LFTs Other abnormal blood chemistry documented in this encounter [employer] Phone: evalrfdfty note* Diagnosis Other screening mammogram documented in this encounter [employer] Phone: evalwbdrex note* Diagnosis Right upper quadrant abdominal pain Abdominal pain, right upper quadrant documented in this encounter [employer] Phone: evaluation note* Diagnosis Right upper quadrant abdominal pain Abdominal pain, right upper quadrant documented in this encounter [employer] Phone: evaluation note* Diagnosis Intermittent claudication (HCC) Peripheral vascular disease, unspecified documented in this encounter [employer] Phone: evaluation note* Diagnosis Colon cancer screening Special screening for malignant neoplasms, colon Fatty liver Other chronic nonalcoholic liver disease documented in this encounter [employer] Phone: evaluation note* Diagnosis Rib pain on left side- Primary Chest pain, unspecified Screening for colon cancer Special screening for malignant neoplasms, colon documented in this encounter [employer] Phone: evaluation note* Diagnosis Colon cancer screening Special screening for malignant neoplasms, colon Fatty liver Other chronic nonalcoholic liver disease Screening for colon cancer Special screening for malignant neoplasms, colon documented in this encounter [facility] [employer] Phone: evalraldra note* Diagnosis Controlled type 2 diabetes mellitus with diabetic polyneuropathy, with long-term current use of insulin (HCC) Screening for colon cancer Special screening for malignant neoplasms, colon documented in this encounter [employer] Phone: evaluation noteNo assessment information [facility] Work Phone: Evaluation note* Diagnosis Postural syncope Screening for colon cancer Special screening for malignant neoplasms, colon documented in this encounter [facility] [employer] Phone: evalnnxcho note* Diagnosis Syncope and collapse Preop cardiovascular exam Pre-operative cardiovascular examination Dizziness Dizziness and giddiness Primary hypertension Unspecified essential hypertension Mixed hyperlipidemia Tobacco abuse counseling Counseling on substance use and abuse Screening for colon cancer Special screening for malignant neoplasms, colon documented in this encounter [employer] Phone: [email or web address] noteNo [facility] [place] Other evaluation note* Diagnosis Lumbar radiculitis Thoracic or lumbosacral neuritis or radiculitis, unspecified Screening for colon cancer Special screening for malignant neoplasms, colon documented in this encounter [employer] Phone: evaluation note* Diagnosis Tired Other malaise and fatigue Fatigue, unspecified type LAYNE (obstructive sleep apnea) Obstructive sleep apnea (adult) (pediatric) Screening for colon cancer Special screening for malignant neoplasms, colon documented in this encounter [employer] Phone: evalbzjitm note* Diagnosis Screening for colon cancer Special screening for malignant neoplasms, colon documented in this encounter [employer] Phone: evaluation note* Diagnosis Thoracic neuritis Thoracic or lumbosacral neuritis or radiculitis, unspecified documented in this encounter [employer] Phone: [email or web address] note* Diagnosis LAYNE (obstructive sleep apnea) Obstructive sleep apnea (adult) (pediatric) documented in this encounter [employer] Phone: evaluation note* Diagnosis Acute pneumonia- Primary [...] Syncope and collapse documented in this encounter [facility] [employer] note* Diagnosis Syncope, unspecified syncope type- Primary documented in this encounter [facility] [employer] note* Diagnosis Lower leg edema Edema documented in this encounter [employer] note* Diagnosis Recurrent pansinusitis documented in this encounter [facility] [email or web address] note* Diagnosis Recurrent pansinusitis Recurrent sinusitis Unspecified sinusitis (chronic) documented in this encounter [facility] [email or web address] note* Diagnosis Lisfranc dislocation, left, initial encounter- Primary Closed nondisplaced fracture of metatarsal bone of left foot, unspecified metatarsal, initial encounter documented in this encounter [facility] [email or web address] note* Diagnosis Lisfranc dislocation, left, initial encounter- Primary documented in this encounter [employer] [facility]* Diagnosis Charcot ankle, left- Primary Closed dislocation of tarsal joint of left foot, initial encounter Charcot ankle, left Post-op pain Other acute postoperative pain Closed dislocation of tarsal joint of left foot Multiple closed tarsal fractures, left, initial encounter Closed fracture of tarsal and metatarsal bones of left foot Lisfranc dislocation, left, initial encounter 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) Charcot joint of left foot Acquired posterior equinus, left Post-op pain Other acute postoperative pain Controlled type 2 diabetes mellitus with diabetic polyneuropathy, with long-term current use of insulin ([facility]) Tobacco abuse Tobacco use disorder Essential hypertension Unspecified essential hypertension Dyslipidemia Other and unspecified hyperlipidemia Type 2 diabetes mellitus with hyperglycemia ([facility]) Type II or unspecified type diabetes mellitus without mention of complication, not stated as uncontrolled Fatty liver Other chronic nonalcoholic liver disease documented in this encounter [facility]* Diagnosis Closed dislocation of tarsal joint of left foot, initial encounter Charcot's joint of foot, left 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) Tobacco abuse Tobacco use disorder Left foot pain Pain in limb documented in this encounter [facility] Hospital[facility]* Diagnosis Post-op pain- Primary Other acute postoperative pain Charcot ankle, left Diabetes (HCC) Post-op pain Other acute postoperative pain Multiple closed fractures of metatarsal bone of left foot Dislocation of tarsometatarsal joint of left foot Closed dislocation of tarsometatarsal (joint) Charcot's joint of foot, left documented in this encounter [facility] Hospital[facility] Narrative - Reported* Type Description Date Medical History Hypertension Medical History type II diabetes Medical History PMDD Medical History hyperlipidemia Surgical History (R) shoulder surgery Surgical History hysterectomy Surgical History bladder surgery Surgical History Pelvic Reconstruction Hospitalization History See Above App [employer] Other Hospital Discharge instructions* Attachments The following attachments cannot be sent through Care Everywhere. * Chest Pain: Musculoskeletal (Trinidadian) documented in this encounterWELLMONT HEALTH SYSTEMi-[facility] [employer] Work Phone: Hospital Discharge instructions* Attachments The following attachments cannot be sent through Care Everywhere. * Pneumonia (Trinidadian) * Diabetes: Carb Counting and Eating Well: General Info (Trinidadian) documented in [facility] Assessments Diagnosis Diabetes mellitus type 2 with [...] type diabetes mellitus with unspecified complication, uncontrolled Advance Directives No Advanced Directives Records FoundDocuments on File Type Date Recorded Patient Barn Worker Expl anation Advance Directives and Livin g Will Advance Directives and Livin g Will 09/24/2013 3:29 PM Power of Modeler Power of Modeler 09/24/2013 3:29 PM Latest Code Status on File Code Status Date Activated Date Inactivated Comments Full Code 12/21/2017 5:28 AM 12/23/2017 6:35 PM Full Code 04/28/2016 7:55 PM 04/29/2016 5:42 PM Full Code 04/27/2016 8:29 AM 04/27/2016 1:04 PM Full Code 12/31/2015 1:59 PM 04/27/2016 8:29 AM Full Code 12/31/2015 11:18 AM 12/31/2015 1:59 PM Documents on File Type Date Recorded Patient Barn Worker Expl anation Advance Directives and Livin g Will Advance Directives and Livin g Will 09/24/2013 3:29 PM Power of Modeler Power of Modeler 09/24/2013 3:29 PM Latest Code Status on File Code Status Date Activated Date Inactivated Comments Full Code 12/21/2017 5:28 AM 12/23/2017 6:35 PM Full Code 04/28/2016 7:55 PM 04/29/2016 5:42 PM Full Code 04/27/2016 8:29 AM 04/27/2016 1:04 PM Full Code 12/31/2015 1:59 PM 04/27/2016 8:29 AM Full Code 12/31/2015 11:18 AM 12/31/2015 1:59 PM Documents on File Type Date Recorded Patient Barn Worker Expl anation ACP-Advance Directive ACP-Advance Directive 09/24/2013 3:29 PM ACP-Power of Modeler ACP-Power of Modeler 09/24/2013 3:29 PM Documents on File Type Date Recorded Patient Barn Worker Expl anation ACP-Advance Directive ACP-Advance Directive 09/24/2013 3:29 PM ACP-Power of Modeler ACP-Power of Modeler 09/24/2013 3:29 PM Documents on File Type Date Recorded Patient Barn Worker Expl anation ACP-Advance Directive ACP-Power of Modeler ACP-Advance Directive 09/24/2013 3:29 PM ACP-Power of Modeler 09/24/2013 3:29 PM Healthcare Agents on File Name Relationship Healthcare Agent Relationshi p Communication Yoel Warner Spouse Primary Decision Maker [phone] (Home) Documents on File Type Date Recorded Patient Barn Worker Expl anation ACP-Advance Directive ACP-Power of Modeler ACP-Advance Directive 09/24/2013 3:29 PM ACP-Power of Modeler 09/24/2013 3:29 PM Healthcare Agents on File [...] Documents on File Type Date Recorded Patient Barn Worker Expl anation ACP-Power of Modeler ACP-Advance Directive 09/24/2013 3:29 PM ACP-Power of Modeler 09/24/2013 3:29 PM Healthcare Agents on File Name Relationship Healthcare Agent Relationshi p Communication Yoel Warner Spouse Primary Decision Maker Documents on File Type Date Recorded Patient Barn Worker Expl anation ACP-Power of Modeler ACP-Advance Directive 09/24/2013 3:29 PM ACP-Power of Modeler 09/24/2013 3:29 PM Healthcare Agents on File Name Relationship Healthcare Agent Relationshi p Communication Yoel Warner Spouse Primary Decision Maker Healthcare Agents on File Name Relationship Healthcare Agent Relationshi p Communication Yoel Warner Spouse Primary Decision Maker Documents on File Type Date Recorded Patient Barn Worker Expl anation ACP-Advance Directive 09/24/2013 3:29 PM ACP-Power of Modeler 09/24/2013 3:29 PM Healthcare Agents on File Name Relationship Healthcare Agent Relationshi p Communication Yoel Warner Spouse Primary Decision Maker [phone] (Home) Healthcare Agents on File Name Relationship Healthcare Agent Relationshi p Communication Yoel aWrner Spouse Primary Decision Maker Healthcare Agents on [...] Documents on File Type Date Recorded Patient Barn Worker Expl anation ACP-Advance Directive 09/24/2013 3:29 PM ACP-Power of Modeler 09/24/2013 3:29 PM Healthcare Agents on File [...] Documents on File Type Date Recorded Patient Barn Worker Expl anation ACP-Advance Directive 09/24/2013 3:29 PM ACP-Power of Modeler 09/24/2013 3:29 PM ACP-Advance Directive 06/13/2023 12:08 PM Health Care Power of Modeler Latest Code Status on File Code Status [...] (Home) Iliana Green Child Secondary Decision Maker Latest [...] Documents on File Type Date Recorded Patient Barn Worker Expl anation ACP-Advance Directive 09/24/2013 3:29 PM ACP-Power of Modeler 09/24/2013 3:29 PM ACP-Advance Directive 06/13/2023 12:08 PM Health Care Power of Modeler Date Activated Date Inactivated Comments 06/11/2023 12:44 [...] Communication Yoel Warner Spouse Primary Decision Maker Date Activated Date Inactivated Comments 07/23/2024 6:49 PM Date Activated Date Inactivated Comments 06/11/2023 12:44 AM 06/14/2023 3:29 PM Date Activated Date Inactivated Comments 12/21/2017 5:28 AM 12/23/2017 6:35 PM Date Activated Date Inactivated Comments 04/28/2016 7:55 PM 04/29/2016 5:42 PM Date Activated Date Inactivated Comments 04/27/2016 8:29 AM 04/27/2016 1:04 PM Healthcare Agents on File Name Relationship Healthcare Agent Relationshi p Communication Yoel Warner Spouse Primary Decision Maker Date Activated Date Inactivated Comments 07/23/2024 6:49 PM 07/26/2024 7:33 PM Healthcare Agents on File Name Relationship Healthcare Agent Relationshi p Communication Yoel Warner Spouse Primary Decision Maker Date Activated Date Inactivated Comments 07/23/2024 6:49 PM 07/26/2024 7:33 PM Date Activated Date Inactivated Comments 06/11/2023 12:44 AM 06/14/2023 3:29 PM Date Activated Date Inactivated Comments 12/21/2017 5:28 AM 12/23/2017 6:35 PM Date Activated Date Inactivated Comments 04/28/2016 7:55 PM 04/29/2016 5:42 PM Date Activated Date Inactivated Comments 04/27/2016 8:29 AM 04/27/2016 1:04 PM Healthcare Agents on File Name Relationship Healthcare Agent Relationshi p Communication Yoel Warner Spouse Primary Decision Maker Date Activated Date Inactivated Comments 09/14/2024 1:39 PM Date Activated Date Inactivated Comments 09/14/2024 11:28 AM 09/14/2024 1:39 PM Date Activated Date Inactivated Comments 07/23/2024 6:49 PM 07/26/2024 7:33 PM Date Activated Date Inactivated Comments 06/11/2023 12:44 AM 06/14/2023 3:29 PM Date Activated Date Inactivated Comments 12/21/2017 5:28 AM 12/23/2017 6:35 PM Healthcare Agents on File Name Relationship Healthcare Agent Relationshi p Communication Yoel Warner Spouse Primary Decision Maker Date Activated Date Inactivated Comments 09/14/2024 1:39 PM 09/15/2024 7:56 PM Date Activated Date Inactivated Comments 09/14/2024 11:28 AM 09/14/2024 1:39 PM Date Activated Date Inactivated Comments 07/23/2024 6:49 PM 07/26/2024 7:33 PM Date Activated Date Inactivated Comments 06/11/2023 12:44 AM 06/14/2023 3:29 PM Date Activated Date Inactivated Comments 12/21/2017 5:28 AM 12/23/2017 6:35 PM Healthcare Agents on File Name Relationship [...] Yoel Warner Spouse Primary Decision Maker [phone] (Home) Healthcare Agents on File Name Relationship Healthcare Agent Relationshi p Communication Yoel Warner Spouse Primary Decision Maker [phone] (Home) Healthcare Agents on File Name Relationship Healthcare Agent Relationshi p Communication Yoel Warner Spouse Primary Decision Maker [phone] (Home) Reason for Referral Status Reason Specialty Diagnoses / Procedures Referre d By Contact Referred To Contact Open Radiology Diagnoses Abdominal pain, unspecified abdominal location Procedures CT ABDOMEN PELVIS W IV CONTRAST Additional Contrast? Oral Curtis Jean MD [address] [place] [address] Status Reason Specialty Diagnoses / Procedures Referred By Contact Referred To Contact Authorized Radiology Diagnoses Generalized abdominal pain Procedures NM GASTRIC EMPTYING HC NM GASTRIC EMPTYING STUDY Curtis Jean MD [address] [place] [address] Status Reason Specialty Diagnoses / Procedures Referre d By Contact Referred To Contact Open Radiology Diagnoses Generalized abdominal pain Procedures NM GASTRIC EMPTYING Vivian Oseguera, SENIOR ARCHITECT/DESIGN MANAGER - HOME CARE MANAGER [address] [place] [address] Status Reason Specialty Diagnoses / Procedures Referre d By Contact Referred To Contact Closed Radiology Diagnoses Traumatic injury of head, initial encounter Scalp tenderness S09.90XA (ICD-10-CM) - Traumatic injury of head, initial encounter R51.9 (ICD-10-CM) - Scalp tenderness Procedures CT HEAD WO CONTRAST Vivian Oseguera, SENIOR ARCHITECT/DESIGN MANAGER - HOME CARE MANAGER [address] [place] [address] Status Reason Specialty Diagnoses / Procedures Re ferred By Contact Referred To Contact Authorized Cardiology Diagnoses Essential hypertension Chest discomfort Hyperlipidemia, unspecified hyperlipidemia type Tobacco abuse Procedures Echo stress test HC NM SEST. REST STRESS MULT Nathan Ardon MD [address] [place] [address] [place] [address] Status Reason Specialty Diagnoses / Procedures Referre d By Contact Referred To Contact Closed Radiology Diagnoses Other screening mammogram Procedures ALEJANDRO MARISOL DIGITAL SCREEN BILATERAL Vivian Oseguera SENIOR ARCHITECT/DESIGN MANAGER - HOME CARE MANAGER [address] [place] [address] Status Reason Specialty Diagnoses / Procedures Referred By Contact Referred To Contact Not Required - Recondo Radiology Diagnoses Right upper quadrant abdominal pain Procedures US GALLBLADDER RUQ HC US ABDOMINAL LIMITED Flip Dodson SENIOR ARCHITECT/DESIGN MANAGER - HOME CARE MANAGER [address] [place] [address] Specialty Diagnoses / Procedures Referred By Contac t Referred To Contact Radiology Diagnoses Intermittent claudication (HCC) Procedures VL LOWER EXTREMITY ARTERIAL SEGMENTAL PRESSURES W PPG Vivian Oseguera SENIOR ARCHITECT/DESIGN MANAGER - HOME CARE MANAGER [address] [place] [address] Referral ID Status Reason Start Date Expiration Date Visits Re quested Visits Authorized [id number] Closed 03/24/2022 03/24/2023 1 1 Specialty Diagnoses / Procedures Referred By Contac t Referred To Contact Radiology Diagnoses Colon cancer screening Fatty liver Procedures US LIVER Tari Curtis MD [address] [place] [address] Referral ID Status Reason Start Date Expiration Date Visits Re quested Visits Authorized [id number] Closed 07/26/2022 07/26/2023 1 1 Specialty Diagnoses / Procedures Referred By Contac t Referred To Contact Diagnoses Postural syncope R55 (ICD-10-CM) - Postural syncope Procedures Tilt Table Test Tilt Table Test MO CARDIOVASCULAR FUNCTION EVAL W/TILT TABLE W/MNTR 81290 - MO CARDIOVASCULAR FUNCTION EVAL W/TILT TABLE W/MNTR Vivian Oseugera SENIOR ARCHITECT/DESIGN MANAGER - HOME CARE MANAGER [address] [place] [address] Referral ID Status Reason Start Date Expiration Date Visits Re quested Visits Authorized [id number] Closed 09/23/2022 09/23/2023 1 1 Specialty Diagnoses / Procedures Referred By Contac t Referred To Contact Diagnoses Syncope and collapse Preop cardiovascular exam Dizziness Primary hypertension Mixed hyperlipidemia Tobacco abuse counseling Procedures Continuous cardiac monitoring, >2 up to 14 days Nathan Adron MD [address] [place] [address] [place] [address] Referral ID Status Reason Start Date Expiration Date V isits Requested Visits Authorized [id number] Pending Review 10/08/2022 09/28/2023 1 1 Specialty Diagnoses / Procedures Referred By Contac t Referred To Contact Radiology Diagnoses Lumbar radiculitis Procedures MRI LUMBAR SPINE WO CONTRAST Keily Clements APRN - SCUBA DIVING TEACHER [address] [place] [address] Referral ID Status Reason Start Date Expiration Date Visits Re quested Visits Authorized [id number] Closed 10/25/2022 12/09/2022 1 1 Specialty Diagnoses / Procedures Referred By Contac t Referred To Contact Sleep Center Diagnoses Tired Fatigue, unspecified type LAYNE (obstructive sleep apnea) Procedures Home sleep study Nathan Ardon MD [address] [place] [address] [place] [address] Referral ID Status Reason Start Date Expiration Date Visits Re quested Visits Authorized [id number] Closed 11/09/2022 11/15/2023 1 1 Specialty Diagnoses / Procedures Referred By Contac t Referred To Contact Radiology Diagnoses Thoracic neuritis M54.14 (ICD-10-CM) - Thoracic neuritis Procedures MRI THORACIC SPINE WO CONTRAST CHG MRI SPINAL CANAL THORACIC W/O CONTRAST MATRL 39061 - CHG MRI SPINAL CANAL THORACIC W/O CONTRAST MATRL Barbara Mcghee MD [address] [facility], [address] [address] Referral ID Status Reason Start Date Expiration Date Visits Re quested Visits Authorized [id number] Closed 12/01/2022 01/15/2023 1 1 Specialty Diagnoses / Procedures Referred By Contac t Referred To Contact Sleep Center Diagnoses LAYNE (obstructive sleep apnea) Procedures Sleep study with PAP titration Nathan Ardon MD [address] [place] [address] [place] [address] Referral ID Status Reason Start Date Expiration Date Visits Re quested Visits Authorized [id number] Closed 01/02/2023 01/02/2024 1 1 Specialty Diagnoses / Procedures Referred By Fernandez t Referred To Contact Radiology Diagnoses Recurrent sinusitis Procedures CT SINUS WO CONTRAST Might, Vivian W, SENIOR ARCHITECT/DESIGN MANAGER - HOME CARE MANAGER [address] [place] [address] Referral ID Status Reason Start Date Expiration Date Visits Re quested Visits Authorized [id number] Closed 07/02/2024 08/16/2024 1 1 Specialty Diagnoses / Procedures Referred By Fernandez t Referred To Contact Radiology Diagnoses Recurrent pansinusitis Procedures CT SINUS W CONTRAST MightVivian, SENIOR ARCHITECT/DESIGN MANAGER - HOME CARE MANAGER [address] [place] [address] Referral ID Status Reason Start Date Expiration Date Visits Re quested Visits Authorized [id number] Closed 06/26/2024 06/25/2025 1 1 Specialty Diagnoses / Procedures Referred By Fernandez t Referred To Contact Radiology Diagnoses Closed dislocation of tarsal joint of left foot, initial encounter Charcot's joint of foot, left 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) Tobacco abuse Left foot pain Procedures CT FOOT LEFT WO CONTRAST Meera Mike, DPZarina [address] [place] [address] Referral ID Status Reason Start Date Expiration Date Visits Re quested Visits Authorized [id number] Closed 08/30/2024 10/14/2024 1 1 Summary Purpose Family History No Family History Records Found Relationship Condition Age at Onset Recorded Date/T barry father Diabetes mellitus Unknown Heart disease Unknown Vascular disorder Unknown Chronic obstructive pulmonary disease Unk nown Not Specified Diabetes mellitus Unknown brother Liver problem Unknown Chief Complaint and Reason for Visit Chief Complaint Failed Implant Chief Complaint Failed Implant Failed Implant Additional Source Comments Reason for Visit (unrecogniz ed section and content) Status Reason Specialty Diagnoses / Procedures Referre d By Contact Referred To Contact Closed Radiology Diagnoses Generalized abdominal pain Procedures HC CT ABD/PEL W CONT Curtis Jean MD [address] [place] [address] [facility] Scan [address] [place] [address] Status Reason Specialty Diagnoses / Procedures Referre d By Contact Referred To Contact Open Radiology Diagnoses Thyromegaly Procedures US HEAD NECK SOFT TISSUE THYROID US THYROID HCHG US,HEAD/NECK TISSUES,B-SCAN/REAL TIME Hever Olivera PA [address] [place] [address] Status Reason Specialty Diagnoses / Procedures Referred By Contact Referred To Contact Authorized Radiology Diagnoses Functional dyspepsia Procedures HC NM GASTRIC EMPTYING STUDY Curtis Jean MD [address] [place] [address] [address] [address] [place], [place] Status Reason Specialty Diagnoses / Procedures Referre d By Contact Referred To Contact Closed Radiology Diagnoses Generalized abdominal pain Procedures NM GASTRIC EMPTYING HC NM GASTRIC EMPTYING STUDY Curtis Jean MD [address] [place] [address] [place], [place] Status Reason Specialty Diagnoses / Procedures Referre d By Contact Referred To Contact Closed Radiology Diagnoses Traumatic injury of head, initial encounter Scalp tenderness S09.90XA (ICD-10-CM) - Traumatic injury of head, initial encounter R51.9 (ICD-10-CM) - Scalp tenderness Procedures CT HEAD WO CONTRAST Vivian Oseguera W, SENIOR ARCHITECT/DESIGN MANAGER - HOME CARE MANAGER [address] [place] [address] Status Reason Specialty Diagnoses / Procedures Referre d By Contact Referred To Contact Closed Radiology Diagnoses DDD (degenerative disc disease), lumbar Procedures CT LUMBAR SPINE W CONTRAST FL MYELOGRAM LUMBOSACRAL S&I IR MYELOGRAM LUMBOSACRAL IR MYELOGRAM LUMBOSACRAL Corey Cleveland MD [address] [place] [address] Status Reason Specialty Diagnoses / Procedures Re ferred By Contact Referred To Contact Authorized Cardiology Diagnoses Essential hypertension Chest discomfort Hyperlipidemia, unspecified hyperlipidemia type Tobacco abuse Procedures Echo stress test HC NM SEST. REST STRESS MULT Nathan Ardon MD [address] [place] [address] [place] [address] Status Reason Specialty Diagnoses / Procedures Referred By Contact Referred To Contact Pending Review Stress Lab Diagnoses Essential (primary) hypertension Other chest pain Hyperlipidemia, unspecified Tobacco use Procedures CHG MYOCARDIAL SPECT MULTIPLE STUDIES Nathan Ardon MD [address] [place] [address] [place] [address] [facility] [address] [place] [address] Status Reason Specialty Diagnoses / Procedures Referre d By Contact Referred To Contact Closed Radiology Diagnoses Other screening mammogram Procedures ALEJANDRO MARISOL DIGITAL SCREEN BILATERAL Vivian Oseguera APRN - HOME CARE MANAGER [address] [place] [address] Status Reason Specialty Diagnoses / Procedures Referred By Contact Referred To Contact Not Required - Recondo Radiology Diagnoses Right upper quadrant abdominal pain Procedures US GALLBLADDER RUQ HC US ABDOMINAL LIMITED Flip Dodson APRN - HOME CARE MANAGER [address] [place] [address] Specialty Diagnoses / Procedures Referred By Contac t Referred To Contact Radiology Diagnoses Intermittent claudication (HCC) Procedures VL LOWER EXTREMITY ARTERIAL SEGMENTAL PRESSURES W PPG Vivian Oseguera SENIOR ARCHITECT/DESIGN MANAGER - HOME CARE MANAGER [address] [place] [address] Referral ID Status Reason Start Date Expiration Date Visits Re quested Visits Authorized [id number] Closed 03/24/2022 03/24/2023 1 1 Reason Comments Rib Pain (injury) Left sided, ongoing since Tuesday, denies injury, hurts to take a deep breath Specialty Diagnoses / Procedures Referred By Contac t Referred To Contact Radiology Diagnoses Colon cancer screening Fatty liver Procedures US LIVER Tari Curtis MD [address] [facility] [place] [place] [address] [place] [address] Referral ID Status Reason Start Date Expiration Date Visits Re quested Visits Authorized [id number] Closed 07/26/2022 07/26/2023 1 1 Specialty Diagnoses / Procedures Referred By Contac t Referred To Contact Diagnoses Postural syncope R55 (ICD-10-CM) - Postural syncope Procedures Tilt Table Test Tilt Table Test MO CARDIOVASCULAR FUNCTION EVAL W/TILT TABLE W/MNTR 11788 - MO CARDIOVASCULAR FUNCTION EVAL W/TILT TABLE W/MNTR Vivian Oseguera, SENIOR ARCHITECT/DESIGN MANAGER - HOME CARE MANAGER [address] [place] [address] Referral ID Status Reason Start Date Expiration Date Visits Re quested Visits Authorized [id number] Closed 09/23/2022 09/23/2023 1 1 Specialty Diagnoses / Procedures Referred By Contac t Referred To Contact Diagnoses Syncope and collapse Preop cardiovascular exam Dizziness Primary hypertension Mixed hyperlipidemia Tobacco abuse counseling Procedures Continuous cardiac monitoring, >2 up to 14 days Nathan Ardon MD [facility] [place] [address] Referral ID Status Reason Start Date Expiration Date V isits Requested Visits Authorized [id number] Pending Review 10/08/2022 09/28/2023 1 1 Specialty Diagnoses / Procedures Referred By Contac t Referred To Contact Radiology Diagnoses Lumbar radiculitis Procedures MRI LUMBAR SPINE WO CONTRAST Keily Clements, SENIOR ARCHITECT/DESIGN MANAGER - SCUBA DIVING TEACHER [address] [place] [address] Referral ID Status Reason Start Date Expiration Date Visits Re quested Visits Authorized [id number] Closed 10/25/2022 12/09/2022 1 1 Specialty Diagnoses / Procedures Referred By Contac t Referred To Contact Sleep Center Diagnoses Tired Fatigue, unspecified type LAYNE (obstructive sleep apnea) Procedures Home sleep study Nathan Ardon MD [facility] [place] [address] Referral ID Status Reason Start Date Expiration Date Visits Re quested Visits Authorized [id number] Closed 11/09/2022 11/15/2023 1 1 Specialty Diagnoses / Procedures Referred By Contac t Referred To Contact Diagnoses Screening for colon cancer SCREENING Procedures MO COLON CA SCRN NOT HI RSK IND MO COLONOSCOPY FLX DX W/COLLJ SPEC WHEN PFRMD MO COLONOSCOPY W/BIOPSY SINGLE/MULTIPLE MO COLSC FLX W/RMVL OF TUMOR POLYP LESION SNARE TQ COLORECTAL CANCER SCREENING, NOT HIGH RISK Tari Curtis MD [address] [facility] [place] [address] [place] [address] [facility] [address] [place] [address] Referral ID Status Reason Start Date Expiration Date Visits Re quested Visits Authorized [id number] 1 1 Specialty Diagnoses / Procedures Referred By Contac t Referred To Contact Radiology Diagnoses Thoracic neuritis M54.14 (ICD-10-CM) - Thoracic neuritis Procedures MRI THORACIC SPINE WO CONTRAST CHG MRI SPINAL CANAL THORACIC W/O CONTRAST MATRL 27992 - CHG MRI SPINAL CANAL THORACIC W/O CONTRAST MATRL Barbara Mcghee MD [address] [facility], [address] [place] [address] Referral ID Status Reason Start Date Expiration Date Visits Re quested Visits Authorized [id number] Closed 12/01/2022 01/15/2023 1 1 Specialty Diagnoses / Procedures Referred By Contac t Referred To Contact Sleep Center Diagnoses LAYNE (obstructive sleep apnea) Procedures Sleep study with PAP titration Nathan Ardon MD [address] [place] [address] [place] [address] Referral ID Status Reason Start Date Expiration Date Visits Re quested Visits Authorized [id number] Closed 01/02/2023 01/02/2024 1 1 Reason Comments [...] 203. Specialty Diagnoses / Procedures Referred By Fernandez lau Referred To Contact Diagnoses Pneumonia of both lower lobes due to infectious organism Recurrent syncope Acute pneumonia Bubba Hudson MD [address] [place] [address] [facility] [address] [place] [address] Referral ID Status Reason Start Date Expiration Date Visits Re quested Visits Authorized [id number] 1 1 Reason Comments Loss of Consciousness Patient was recent ly discharged, patient today had syncope episode. Specialty Diagnoses / Procedures Referred By Fernandez lau Referred To Contact Radiology Diagnoses Recurrent pansinusitis Procedures CT SINUS W CONTRAST Might, Vivian W, SENIOR ARCHITECT/DESIGN MANAGER - HOME CARE MANAGER [address] [place] [address] Referral ID Status Reason Start Date Expiration Date Visits Re quested Visits Authorized [id number] Closed 06/26/2024 06/25/2025 1 1 Reason Comments Foot Injury Patient states she w as up walking around and heard a few pops in the left foot. Patient states that she may feel that she broke something. Complains of increased new numbness and discoloration. Reason Comments Foot Injury L Specialty Diagnoses / Procedures Referred By Fernandez lau Referred To Contact Diagnoses Charcot ankle, left Closed dislocation of tarsal joint of left foot Charcot ankle, left [M14.672] Closed dislocation of tarsal joint of left foot [S93.315A] Procedures MO PRQ SKEL FIXJ METAR FX W/MANJ MO APPLICATION UNIPLANE EXTERNAL FIXATION SYSTEM FOOT CLOSED REDUCTION PINNING ANKLE EXTERNAL FIXATOR APPLICATION (ORTHOFIX) Meera Mike DPM [address] [place] [address] [facility] [address] [place] [address] Referral ID Status Reason Start Date Expiration Date Visits Re quested Visits Authorized [id number] 1 1 Specialty Diagnoses / Procedures Referred By Fernandez lau Referred To Contact Radiology Diagnoses Closed dislocation of tarsal joint of left foot, initial encounter Charcot's joint of foot, left 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) Tobacco abuse Left foot pain Procedures CT FOOT LEFT WO CONTRAST Meera Mike DPM [address] [place] [address] Referral ID Status Reason Start Date Expiration Date Visits Re quested Visits Authorized [id number] Closed 08/30/2024 10/14/2024 1 1 Specialty Diagnoses / Procedures Referred By Fernandez lau Referred To Contact Diagnoses Charcot ankle, left Diabetes (HCC) Charcot ankle, left [M14.672] Diabetes (HCC) [E11.9] Procedures MO REMOVAL EXTERNAL FIXATION SYSTEM UNDER ANES MO ARTHRODESIS SUBTALAR MO ARTHRD MIDTARSL/TARSOMETATARSAL MULT/TRANSVRS REMOVE EXTERNAL FIXATOR LEFT FOOT SUBTALAR JOINT FUSION; FUSION MIDFOOT MULTIPLE JOINTS LEFT FOOT SUBTALAR JOINT FUSION; FUSION MIDFOOT MULTIPLE JOINTS LEFT FOOT Meera Mike DPM [address] [address] [facility] [address] [place] [address] Referral ID Status Reason Start Date Expiration Date Visits Re quested Visits Authorized [id number] 1 1 INFORMATION SOURCE (unrecogn ized section and content) DATE CREATED AUTHOR 10/24/2021 [facility] DATE CREATED AUTHOR AUTHOR'S ORGANIZ ATION 11/05/2021 [facility] DATE CREATED AUTHOR AUTHOR'S ORGANIZ ATION 10/30/2022 [facility] DATE CREATED AUTHOR AUTHOR'S ORGANIZ ATION 02/09/2023 [facility] DATE CREATED AUTHOR AUTHOR'S ORGANIZ ATION 09/20/2024 [facility] DATE CREATED AUTHOR AUTHOR'S ORGANIZ ATION 02/01/2025 [facility] DATE CREATED AUTHOR AUTHOR'S ORGANIZ ATION 02/01/2025 [facility] DATE CREATED AUTHOR AUTHOR'S ORGANIZ ATION 02/08/2025 [facility] Care Teams (unrecognized sec tion and content) Store Stock Associate Relationship Specialty Start Date End Date Might, Vivian Combs APRN HOME CARE MANAGER PCP - General Family Nurse Practitioner 05/10/18 Store Stock Associate Relationship Specialty Start Date End Date Might, Vivian Combs APRN - HOME CARE MANAGER PCP - General Family Nurse Practitioner 05/10/18 Store Stock Associate Relationship Specialty Start Date End Date Might, Vivian Combs APRN - HOME CARE MANAGER PCP - General Family Nurse Practitioner 05/10/18 Store Stock Associate Relationship Specialty Start Date End Date Might, Vivian Combs APRN - HOME CARE MANAGER PCP - General Family Nurse Practitioner 05/10/18 Store Stock Associate Relationship Specialty Start Date End Date Might, Vivian Combs APRN - HOME CARE MANAGER PCP - General Family Nurse Practitioner 05/10/18 Store Stock Associate Relationship Specialty Start Date End Date Might, Vivian Combs APRN - HOME CARE MANAGER PCP - General Family Nurse Practitioner 05/10/18 Store Stock Associate Relationship Specialty Start Date End Date Might, Vivian Combs APRN - HOME CARE MANAGER PCP - General Family Nurse Practitioner 05/10/18 Store Stock Associate Relationship Specialty Start Date End Date Might, Vivian Combs APRN - HOME CARE MANAGER PCP - General Family Nurse Practitioner 05/10/18 Store Stock Associate Relationship Specialty Start Date End Date Might, Vivian Combs APRN - HOME CARE MANAGER PCP - General Family Nurse Practitioner 05/10/18 Store Stock Associate Relationship Specialty Start Date End Date Might, Vivian Combs [facility] PCP - General Family Nurse Practitioner 05/10/18 Store Stock Associate Relationship Specialty Start Date End Date Might, Vivian Combs [facility] PCP - General Family Nurse Practitioner 05/10/18 Store Stock Associate Relationship Specialty Start Date End Date Might, Vivian Combs [facility] PCP - General Family Nurse Practitioner 05/10/18 Store Stock Associate Relationship Specialty Start Date End Date Might, Vivian Combs [facility] PCP - General Family Nurse Practitioner 05/10/18 Store Stock Associate Relationship Specialty Start Date End Date Might, Vivian Combs [facility] PCP - General Family Nurse Practitioner 05/10/18 Store Stock Associate Relationship Specialty Start Date End Date Might, Vivian Combs [facility] PCP - General Family Nurse Practitioner 05/10/18 Store Stock Associate Relationship Specialty Start Date End Date Might, Vivian Combs [facility] PCP - General Family Nurse Practitioner 05/10/18 Store Stock Associate Relationship Specialty Start Date End Date Might, Vivian Combs [facility] PCP - General Family Nurse Practitioner 05/10/18 Store Stock Associate Relationship Specialty Start Date End Date Might, Vivian Combs [facility] PCP - General Family Nurse Practitioner 05/10/18 Team Status: Inactive Member Role Status Dates NON STAFF Primary Care Provider Active Shiraz Sherman MD Attending Provider Active Team Status: Active Member Role Status Dates NON STAFF Primary Care Provider Active Store Stock Associate Relationship Specialty Start Date End Date Might, Vivian Combs [facility] PCP - General Family Nurse Practitioner 05/10/18 Store Stock Associate Relationship Specialty Start Date End Date Might, Vivian Combs APRN [facility] PCP - General Family Nurse Practitioner 05/10/18 Store Stock Associate Relationship Specialty Start Date End Date Might, Vivian Combs APRN [facility] PCP - General Family Nurse Practitioner 05/10/18 Store Stock Associate Relationship Specialty Start Date End Date Might, Vivian Combs APRN [facility] PCP - General Family Nurse Practitioner 05/10/18 Store Stock Associate Relationship Specialty Start Date End Date Might, Vivian Combs APRN [facility] PCP - General Family Nurse Practitioner 05/10/18 Store Stock Associate Relationship Specialty Start Date End Date Might, Vivian Combs APRN [facility] PCP - General Family Nurse Practitioner 05/10/18 Store Stock Associate Relationship Specialty Start Date End Date Might, Vivian Combs APRN [facility] PCP - General Family Nurse Practitioner 05/10/18 Store Stock Associate Relationship Specialty Start Date End Date Might, Vivian Combs APRN [facility] PCP - General Family Nurse Practitioner 05/10/18 Store Stock Associate Relationship Specialty Start Date End Date Might, Vivian Combs APRN [facility] PCP - General Family Nurse Practitioner 05/10/18 Store Stock Associate Relationship Specialty Start Date End Date Might, Vivian Combs APRN [facility] PCP - General Family Nurse Practitioner 05/10/18 Store Stock Associate Relationship Specialty Start Date End Date MightVivian APRN [facility] PCP - General Family Nurse Practitioner 05/10/18 Store Stock Associate Relationship Specialty Start Date End Date MightVivian APRN - [facility] PCP - General Family Nurse Practitioner 05/10/18 Store Stock Associate Relationship Specialty Start Date End Date MightVivian APRN [facility] PCP - General Family Nurse Practitioner 05/10/18 Store Stock Associate Relationship Specialty Start Date End Date MightVivian APRN [facility] PCP - General Family Nurse Practitioner 05/10/18 Store Stock Associate Relationship Specialty Start Date End Date MightVivian APRN [facility] PCP - General Family Nurse Practitioner 05/10/18 Store Stock Associate Relationship Specialty Start Date End Date Vivian Oseguera APRN - [facility] PCP - General Family Nurse Practitioner 05/10/18 Store Stock Associate Relationship Specialty Start Date End Date Vivian Oseguera APRN - [facility] PCP - General Family Nurse Practitioner 05/10/18 Store Stock Associate Relationship Specialty Start Date End Date Vivian Oseguera APRN [facility] PCP - General Family Nurse Practitioner 05/10/18 Store Stock Associate Relationship Specialty Start Date End Date Vivian Oseguera APRN [facility] PCP - General Family Nurse Practitioner 05/10/18 Store Stock Associate Relationship Specialty Start Date End Date MightVivian APRN - CNP PCP - General Family Nurse Practitioner 05/10/18 Store Stock Associate Relationship Specialty Start Date End Date MightVivian APRN - CNP PCP - General Family Nurse Practitioner 05/10/18 Store Stock Associate Relationship Specialty Start Date End Date MightVivian APRN - CNP PCP - General Family Nurse Practitioner 05/10/18 Store Stock Associate Relationship Specialty Start Date End Date MightVivian APRN - CNP PCP - General Family Nurse Practitioner 05/10/18 Store Stock Associate Relationship Specialty Start Date End Date MightVivian APRN - CNP PCP - General Family Nurse Practitioner 05/10/18 Store Stock Associate Relationship Specialty Start Date End Date MightVivian APRN - CNP PCP - General Family Nurse Practitioner 05/10/18 Store Stock Associate Relationship Specialty Start Date End Date MightVivian APRN - CNP PCP - General Family Nurse Practitioner 05/10/18 Store Stock Associate Relationship Specialty Start Date End Date Vivian Oseguera APRN - CNP PCP - General Family Nurse Practitioner 05/10/18 Store Stock Associate Relationship Specialty Start Date End Date MightVivian APRN - CNP PCP - General Family Nurse Practitioner 05/10/18 Store Stock Associate Relationship Specialty Start Date End Date CaneloVivian APRN - CNP PCP - General Family Nurse Practitioner 05/10/18 Store Stock Associate Relationship Specialty Start Date End Date Vivian Oseguera APRN [facility] PCP - General Family Nurse Practitioner 05/10/18 Store Stock Associate Relationship Specialty Start Date End Date Vivian Oseguera APRN [facility] PCP - General Family Nurse Practitioner 05/10/18 Store Stock Associate Relationship Specialty Start Date End Date Vivian Oseguera APRN - CNP PCP - General Family Nurse Practitioner 05/10/18 Store Stock Associate Relationship Specialty Start Date End Date Vivian Oseguera APRN [facility] PCP - General Family Nurse Practitioner 05/10/18 Store Stock Associate Relationship Specialty Start Date End Date Vivian Oseguera APRN [facility] PCP - General Family Nurse Practitioner [...] 7 days 14 tablet 0 06/14/2023 06/21/2023 Prescription Sig Dispensed Refills Start Date End Da te doxycycline hyclate (VIBRA-TABS) 100 MG tablet Take 1 tablet by mouth daily for 10 days 10 tablet 07/26/2024 08/05/2024 oxyCODONE-acetaminophen (PERCOCET) 5-325 MG per tabletIndications:Post-o p pain Take 1 tablet by mouth in the morning and at bedtime for 8 days. Intended supply: 5 days. Take lowest dose possible to manage pain Max Daily Amount: 2 tablets 16 tablet 07/26/2024 08/03/2024 acetaminophen (TYLENOL) 500 MG tablet Take 1 tablet by mouth 3 times daily for 14 days 42 tablet 07/26/2024 08/09/2024 Prescription Sig Dispensed Refills Start Date End Da te doxycycline hyclate (VIBRA-TABS) 100 MG tablet Take 1 tablet by mouth 2 times daily for 7 days 14 tablet 09/15/2024 09/22/2024 aspirin (CLAUDETTE ASPIRIN) 325 MG tablet Take 1 tablet by mouth daily 30 tablet 3 09/14/2024 HYDROcodone-acetaminophe n (NORCO) 5-325 MG per tabletIndications:Post-o p pain Take 1 tablet by mouth every 6 hours as needed for Pain for up to 7 days. Intended supply: 5 days. Take lowest dose possible to manage pain Max Daily Amount: 4 tablets 28 tablet 09/14/2024 09/21/2024 Scheduled Active and Recently Administ ered Medications [...] 1441 (Given - Provid er: Mario Alberto White, RN) Continuous Medication Order 12/06/2022 12/07/2022 12/08/2022 lactated ringers IV soln infusion IntraVENous, at 100 mL/hr, CONTINUOUS, Starting on Tue12/08/22 at 1230, Pre-op (day of surgery) 1236 (New Bag - Prov ider: Swapna France RN)1427 (Stopped - Provider: Makayla iJ, RN) Scheduled Medication Order 06/12/2023 06/13/2023 06/14/2023 aspirin EC tablet 81 mg 81 mg, Oral, DAILY, First dose on 06/11/23 at 0900, Until Discontinued 08 (Given - Provider: Makayla Leon, BREANNA) 0834 (Given - Provider: Joanie Donovan RN) [...] Ramya Nam RN)2351 (Stopped - Provider: Oren Washburn, BREANNA) 2340 (New Bag - Provider: Shira Dobbins, BREANNA) 0044 (Stopped - Provider: Shira Dobbins RN)2300 [...] Ramya Nam RN) 0834 (Given - Provider: Joaine Donovan RN)2104 (Given - Provider: Cheyenne Poon, BREANNA) 08 (Given - Provider: Yuliet Galaviz RN)2100 (Due) fenofibrate (TRIGLIDE) tablet 160 mg 160 mg, Oral, DAILY, First dose (after last modification) on 06/11/23 at 0230, Until Discontinued, Substituted for Fenofibrate (Non-Formulary Dose). 0824 (Given - Provider: Makayla Leon RN) 0834 (Given - Provider: Joanie Donovan RN) 08 (Given - Provider: Yuliet Galaviz RN) fluticasone (FLONASE) 50 MCG/ACT nasal spray 2 spray 2 spray, Each Nostril, DAILY, First dose on 06/11/23 at 0900, Until Discontinued 08 (Given - Provider: Makayla Leon RN) 0835 (Given - Provider: Joanie Donovan RN) 0831 (Given - Provider: Yuliet Galaviz RN) furosemide (LASIX) tablet 20 mg 20 mg, Oral, DAILY, First dose on 06/11/23 at 0900, Until Discontinued 08 (Given - Provider: Makayla Leon RN) 0834 (Given - Provider: Joanie Donovan RN) 0824 (Given - Provider: Yuliet Galaviz RN) gabapentin (NEURONTIN) capsule 600 mg 600 mg, Oral, 3 TIMES DAILY, First dose (after last modification) on 06/11/23 at 0230, Until Discontinued 823 (Given - Provider: Makayla Leon RN)1426 (Given - Provider: Makayla Leon RN)2015 (Given - Provider: Ramya Nam RN) 0834 (Given - Provider: Joanie Donovan RN)134 (Given - Provider: Joanie Donovan RN)2042 (Given - Provider: Cheyenne Poon, BREANNA) 0824 (Given - Provider: Yuliet Galaviz RN)1400 (Due)2100 (Due) guaiFENesin (MUCINEX) extended release tablet 600 mg 600 mg, Oral, 2 TIMES DAILY, First dose on 06/11/23 at 0100, Until Discontinued, Do not crush or break. 0824 (Given - Provider: Makayla Leon RN)2015 (Given - Provider: Ramya Nam RN) 0833 (Given - Provider: Joanie Donovan RN)2105 (Given - Provider: Cheyenne Poon, BREANNA) 0824 [...] parameters not met - Comment: FSBS 207) 2099 (Due) insulin lispro (HUMALOG) injection vial 15 [...] RN) 0825 (Given - Provider: Yuliet Galaviz RN)1131 (Given - Provider: Yuliet Galaviz, BREANNA)1700 (Due) [...] Makayla Leon RN) 0858 (Given - Provider: Joanie Donovan RN)1718 (Given - Provider: Joanie Donovan RN) 0900 (Given - Provider: Yuliet Galaivz RN)1700 (Due) ipratropium 0.5 mg-albuterol 2.5 mg (DUONEB) nebulizer solution 1 Dose (CANCELED) 1 Dose, Inhalation, 4 times daily, First dose (after last modification) on Tue06/11/23 at 0900, Until Discontinued, Initiate RT Bronchodilator [...] 10 mg, Oral, DAILY, First dose on Tue06/11/23 at 0900, Until Discontinued 0824 (Given - Provider: Makayla Leon RN) 0834 (Given - Provider: Joanie Donovan RN) 0824 (Given - Provider: Yuliet Galaviz RN) methylPREDNISolone sodium succ (SOLU-MEDROL) injection 40 mg 40 mg, IntraVENous, EVERY 12 HOURS, First dose on 06/11/23 at 0900 0824 (Given - Provider: Makayla Leon, RN)2016 (Given - Provider: Ramya Nam RN) 834 (Given - Provider: Joanie Donovan, RN)2105 (Given - Provider: Cheyenne Poon, BREANNA) 824 (Given - Provider: Yuliet Galaviz, BREANNA)2100 (Due) metoprolol succinate (TOPROL XL) extended release tablet 25 mg 25 mg, Oral, 2 times daily, First dose on 06/11/23 at 0100, Until Discontinued, Do not crush or chew. 0824 (Given - Provider: Makayla Leon RN)2015 (Given - Provider: Ramya Nam RN) 833 (Given - Provider: Joanie Donovan, BREANNA)2104 (Given - Provider: Cheyenne Poon, BREANNA) 823 (Given - Provider: Yuliet Galaviz RN)2099 (Due) montelukast (SINGULAIR) tablet 10 mg 10 mg, Oral, NIGHTLY, First dose on 06/11/23 at 0100, Until Discontinued, at bedtime. 2016 (Given - Provider: Ramya Nam RN) 2104 (Given - Provider: Cheyenne Poon, BREANNA) 2099 (Due) rOPINIRole (REQUIP) tablet 4 mg [...] mL/lumen 0835 (Given - Provider: Makayla Leon, BREANNA)2016 (Given - Provider: Ramya Nam, BREANNA) 08 (Given - Provider: Joanie Donovan, RN)2113 (Given - Provider: Cheyenne Poon, RN) 08 (Given - Provider: Yuliet Galaviz RN)2100 [...] RN) 0709 (Given - Provider: Joanie Donovan, BREANNA)1717 (Given - Provider: Joanie Donovan, BREANNA)2116 (Given [...] RN) 0709 (Given - Provider: Joanie Donovan RN)1213 (Given - Provider: Joanie Donovan RN)1716 (Given [...] on 06/11/23 at 2300, Last dose on Tue06/13/23 at 2300
Antimicrobial Indications: Pneumonia (CAP)
CAP [...]
Administer if oral route cannot be used.
Scheduled Medication Order 07/11/2024 07/12/2024 07/13/2024 ketorolac (TORADOL) injection 30 mg (COMPLETED) 30 mg, IntraMUSCular, ONCE, 1 dose, On Tue07/13/24 at 2015, Do not administer for more than 5 days. 2042 (Given - Provid er: Risa Yates RN) Scheduled Medication Order 07/12/2024 07/13/2024 07/14/2024 oxyCODONE (ROXICODONE) immediate release tablet 5 mg (COMPLETED) 5 mg, Oral, ONCE, 1 dose, On 07/14/24 at 0030 0022 (Given - Provid er: Bear Jernigan RN) rOPINIRole (REQUIP) tablet 4 mg (COMPLETED) 4 mg, Oral, ONCE, 1 dose, On 07/14/24 at 0100 0115 (Given - Provid er: Tiny Teran RN) Scheduled Medication Order 07/24/2024 07/25/2024 07/26/2024 aspirin chewable tablet 81 mg 81 mg, Oral, DAILY, First dose (after last modification) on Tue07/24/24 at 1200, Until Discontinued 1157 (Given - Provider: Jesse Duron RN) 1110 (Given - Provider: Jesse Duron RN) 1223 (Given - Provider: Annemarie Mcintosh RN) atorvastatin (LIPITOR) tablet 40 mg 40 mg, Oral, NIGHTLY, First dose on Tue07/23/24 at 2330, Until Discontinued 2047 (Given - Provider: Stella Lo RN) 195 (Given - Provider: Stella Lo RN) 2100 (Due) ceFAZolin (ANCEF) 2000 mg in 20 mL IV syringe 2,000 mg, IntraVENous, EVERY 8 HOURS, First dose on Tue07/24/24 at 0000, Administer over 5 mins. 0237 (Given - Provider: Stella Lo RN - Comment: didn't get from pharmacy at scheduled time)1048 (Given - Provider: Jesse Duron RN)2050 (Given - Provider: Stella Lo RN - Comment: was not up here) 0500 (Given - Provider: Stella Lo RN)1317 (Given - Provider: Jesse Duron RN)220 (Given - Provider: Stella Lo RN) 0612 (Given - Provider: Stella Lo RN)135 (Given - Provider: Annemarie Mcintosh RN)2099 (Due - Provider: Good Hawley [facility]) cetirizine (ZYRTEC) tablet 10 mg 10 mg, Oral, NIGHTLY, First dose (after last modification) on Tue07/24/24 at 2100, Until Discontinued, Substituted for Levocetirizine (XYZAL). 2047 (Given - Provider: Stella Lo RN) 1953 (Given - Provider: Stella Lo RN) 2099 (Due) DULoxetine (CYMBALTA) extended release capsule 60 mg 60 mg, Oral, NIGHTLY, First dose on Tue07/23/24 at 2330, Until Discontinued, Do not crush or break. May add contents of capsule to apple juice or apple sauce, but not chocolate. 2047 (Given - Provider: Stella Lo RN) 1953 (Given - Provider: Stella Lo RN) 2099 (Due) empagliflozin (JARDIANCE) tablet 10 mg 10 mg, Oral, DAILY, First dose on Tue07/24/24 at 0900, Until Discontinued, Indication of Use: Heart Failure (reduced EF), Note: Discontinuation of SGLT2 inhibitor therapy 3 days prior to surgery or major procedures is recommended given the risk for euglycemic diabetic ketoacidosis. 0820 (Given - Provider: Jesse Duron RN) 0903 (Given - Provider: Jesse Duron RN) 0813 (Given - Provider: Annemarie Mcintosh RN) enoxaparin (LOVENOX) injection 40 mg 40 mg, SubCUTAneous, DAILY, First dose on Tue07/24/24 at 0900, Until Discontinued, Indication of Use: Prophylaxis-DVT/PE, Administer by deep subCUTAneous injection with pt lying down. Alternate injection sites on abdominal wall. Do not rub site after injection. Check with provider prior to any invasive procedure. 0827 (Given - Provider: Jesse Duron RN) 0905 (Given - Provider: Jesse Duron RN) 0818 (Given - Provider: Annemarie Mcintosh RN) fenofibrate tablet 160 mg 160 mg, Oral, Nightly, First dose (after last modification) on Tue07/24/24 at 2100, Until Discontinued, Substituted for Fenofibrate (Non-Formulary Dose). 2047 (Given - Provider: Stella Lo RN) 1953 (Given - Provider: Stella Lo RN) 2100 (Due) furosemide (LASIX) tablet 20 mg 20 mg, Oral, DAILY, First dose (after last modification) on Tue07/24/24 at 1200, Until Discontinued 1157 (Given - Provider: Jesse Duron RN) 1110 (Given - Provider: Jesse Duron RN) 1223 (Given - Provider: Annemarie Mcintosh RN) insulin lispro (HUMALOG,ADMELOG) injection vial 0-4 Units 0-4 Units, SubCUTAneous, 4 TIMES DAILY BEFORE MEALS & NIGHTLY, First dose on Tue07/23/24 at 2330, Until Discontinued, Corrective Low Dose Algorithm Glucose: Dose: 70-179 No Insulin 180-249 1 Unit 250-299 2 Units 300-349 3 Units Over 349 4 Units and notify physician Administer as soon as possible within 60 minutes of last blood glucose check 0023 (Given - Provider: Stella Lo RN)0839 (Not Given - Provider: Jesse Duron RN - Reason: Order parameters not met)1157 (Given - Provider: Jesse Duron RN)1725 (Not Given - Provider: Jesse Duron RN - Reason: Patient/family refused)211 (Not Given - Provider: Stella Lo RN - Reason: Order parameters not met) 09 (Given - Provider: Jesse Duron RN)1325 (Not Given - Provider: Jesse Duron RN - Reason: Patient/family refused)1752 (Not Given - Provider: Jesse Duron RN - Reason: Order parameters not met)2200 (Given - Provider: Stella Lo RN) 0818 (Given - Provider: Annemarie Mcintosh RN)1216 (Not Given - Provider: Annemarie Mcintosh RN - Reason: Order parameters not met)1700 (Due)2100 (Due) insulin lispro (HUMALOG,ADMELOG) injection vial 5 Units (COMPLETED) 5 Units, SubCUTAneous, ONCE, 1 dose, On Tue07/24/24 at 0030 0024 (Given - Provider: Stella Lo RN) insulin lispro (HUMALOG,ADMELOG) injection vial 60 Units 60 Units, SubCUTAneous, 3 TIMES DAILY WITH MEALS, First dose on Tue07/24/24 at 0215, Until Discontinued 0152 (Given - Provider: Stella Lo RN)0943 (Not Given - Provider: Jesse Duron RN - Reason: Order parameters not met)1153 (Not Given - Provider: Jesse Duron RN - Reason: Patient/family refused)1712 (Given - Provider: Jesse Duron RN) 0906 (Not Given - Provider: Jesse Duron RN - Reason: Patient/family refused)1316 (Given - Provider: Jesse Duron RN)1750 (Given - Provider: Jesse Duron RN) 0819 (Given - Provider: Annemarie Mcintosh RN)1411 (Not Given - Provider: Annemarie Mcintosh RN - Reason: Other - Comment: BS 72)1700 (Due) lisinopril (PRINIVIL;ZESTRIL) tablet 10 mg 10 mg, Oral, DAILY, First dose (after last modification) on Tue07/24/24 at 1200, Until Discontinued 1157 (Given - Provider: Jesse Duron RN) 1110 (Given - Provider: Jesse Duron RN) 1223 (Given - Provider: Annemarie Mcintosh RN) methocarbamol (ROBAXIN) tablet 500 mg 500 mg, Oral, 4 TIMES DAILY, First dose on Tue07/23/24 at 2330, Until Discontinued 0826 (Given - Provider: Jesse Duron RN)1315 (Given - Provider: Jesse Duron RN)1712 (Given - Provider: Jesse Duron RN)2046 (Given - Provider: Stella Lo RN) 0904 (Given - Provider: Jesse Duron RN)1327 (Given - Provider: Jesse Duron RN)1750 (Given - Provider: Jesse Duron RN)1957 (Given - Provider: Stella Lo RN) 0812 (Given - Provider: Annemarie Mcintosh RN)141 (Given - Provider: Annemarie Mcintosh RN)1700 (Due)2100 (Due) metoprolol succinate (TOPROL XL) extended release tablet 75 mg 75 mg, Oral, DAILY, First dose on Tue07/24/24 at 0900, Until Discontinued, Do not crush or chew. 0823 (Given - Provider: Jesse Duron RN) 0903 (Given - Provider: Jesse Duron RN) 0812 (Given - Provider: Annemarie Mcintosh RN) montelukast (SINGULAIR) tablet 10 mg 10 mg, Oral, NIGHTLY, First dose on Tue07/23/24 at 2330, Until Discontinued 0024 (Given - Provider: Stella Lo RN)2047 (Given - Provider: Stella Lo RN) 1953 (Given - Provider: Stella Lo RN) 2100 (Due) pantoprazole (PROTONIX) tablet 40 mg 40 mg, Oral, DAILY BEFORE BREAKFAST, First dose on Tue07/24/24 at 0700, Until Discontinued, Do not crush or break. Substituted for Omeprazole (PRILOSEC). 0516 (Given - Provider: Stella Lo RN) 0512 (Given - Provider: Stella Lo RN) 0609 (Given - Provider: Stella Lo RN) pregabalin (LYRICA) capsule 25 mg (CANCELED) 25 mg, Oral, DAILY, First dose on Tue07/24/24 at 0900, Until Discontinued 0820 (Given - Provider: Jesse Duron RN) pregabalin (LYRICA) capsule 25 mg 25 mg, Oral, 3 TIMES DAILY, First dose (after last modification) on Tue07/24/24 at 1400, Until Discontinued 1414 (Given - Provider: Jesse Duron RN)2047 (Given - Provider: Stella Lo RN) 09 (Given - Provider: Jesse Duron RN)131 (Given - Provider: Jesse Duron RN)1953 (Given - Provider: Stella Lo RN) 08 (Given - Provider: Annemarie Mcintosh RN)135 (Given - Provider: Annemarie Mcintosh RN)2099 (Due) rOPINIRole (REQUIP) tablet 4 mg 4 mg, Oral, NIGHTLY, First dose on Tue07/23/24 at 2330, Until Discontinued 2047 (Given - Provider: Stella Lo RN) 1954 (Given - Provider: Stella Lo RN) 2099 (Due) sodium chloride flush 0.9 % injection 5-40 mL 5-40 mL, IntraVENous, EVERY 12 HOURS SCHEDULED (2 times per day), First dose on Tue07/23/24 at 2100, Until Discontinued, For Line Patency: Peripheral IV [...] Midline or Central Line = 20 mL/lumen 1003 (Not Given - Provider: Jesse Duron RN - Reason: IV Fluid Infusing)2112 (Not Given - Provider: Stella Lo RN - Reason: IV Fluid Infusing) 09 (Not Given - Provider: Jesse Duron RN - Reason: IV Fluid Infusing)2006 (Not Given - Provider: Stella Lo RN - Reason: IV Fluid Infusing) 826 (Not Given - Provider: Annemarie Mcintosh RN - Reason: IV Fluid Infusing)2099 (Due) traMADol (ULTRAM) tablet 100 mg (CANCELED) 100 mg, Oral, 2 TIMES DAILY, First dose on Tue07/23/24 at 2330, Until Discontinued 819 (Given - Provider: Jesse Duron RN) vitamin D (ERGOCALCIFEROL) capsule 50,000 Units 50,000 Units, Oral, WEEKLY, First dose on Tue07/25/24 at 0930, Until Discontinued 0904 (Given - Provider: Jesse Duron RN) PRN Medication Order 07/24/2024 07/25/2024 07/26/2024 0.9 % sodium chloride infusion IntraVENous, at 5-250 mL/hr, PRN, if patient receiving piggyback infusions and maintenance fluids are not ordered, Starting on Tue07/23/24 at 1845, For piggyback infusion, administer at same rate as piggyback for a total of 25 mL. Enter 25 mL into dose field and piggyback rate into rate field of order. If piggyback is infusing at a rate less than 100 mL/hr, enter 25 mL into dose field and 100 mL/hr into rate field of order. acetaminophen (TYLENOL) tablet 1,000 mg 1,000 mg, Oral, EVERY 8 HOURS PRN, Starting on Olena 07/26/24 at 1319, Until Discontinued, Pain Mild (1-3), Maximum dose of acetaminophen is 4000 mg from all sources in 24 hours. albuterol sulfate HFA (PROVENTIL;VENTOLIN;PROA IR) 108 (90 Base) MCG/ACT inhaler 2 puff 2 puff, Inhalation, EVERY 4 HOURS PRN, Starting on Tue07/23/24 at 2303, Until Discontinued, Wheezing, Initiate RT Bronchodilator Protocol: Yes - Inpatient Protocol dextrose 10 % infusion IntraVENous, at 100 mL/hr, CONTINUOUS PRN, if blood glucose remains LESS THAN 70 mg/dL after 2 dextrose 10% intravenous boluses or administration of glucagon, Starting on Tue07/23/24 at 2307, If blood glucose fails to stabilize after 2 dextrose 10% intravenous boluses or glucagon administration, start dextrose 10% infusion at 100 mL/hour and repeat blood glucose at 30 and 60 minutes. If blood glucose is GREATER THAN 70 mg/dL after 60 minutes, discontinue dextrose 10% infusion. dextrose bolus 10% 125 mL(Linked Group 1) 125 mL, IntraVENous, at 937.5 mL/hr, Administer over 8 Minutes, PRN, Other, Blood glucose 40 - 69 mg/dL and patient NOT ALERT or NPO, Starting on Tue07/23/24 at 2307, Repeat blood glucose in 15 minutes. If blood glucose remains LESS THAN 70 mg/dL, repeat treatment and recheck blood glucose in 15 minutes x 2. If using glycemic management system, dose as instructed per system. If blood glucose remains LESS THAN 70 mg/dL after 2 intravenous boluses start dextrose 10% at 100 mL/hour and notify provider. dextrose bolus 10% 250 mL(Linked Group 1) 250 mL, IntraVENous, at 937.5 mL/hr, Administer over 16 Minutes, PRN, Other, Blood glucose LESS THAN 40 mg/dL and patient NOT ALERT or NPO, Starting on Tue07/23/24 at 2307, Repeat blood glucose in 15 minutes. If blood glucose remains LESS THAN 70 mg/dL, repeat treatment and recheck blood glucose in 15 minutes x 2. If using glycemic management system, dose as instructed per system. If blood glucose remains LESS THAN 70 mg/dL after 2 intravenous boluses start dextrose 10% at 100 mL/hour and notify provider. fluticasone (FLONASE) 50 MCG/ACT nasal spray 2 spray 2 spray, Each Nostril, NIGHTLY PRN, Starting on Tue07/24/24 at 1145, Until Discontinued, Rhinitis glucagon injection 1 mg 1 mg, SubCUTAneous, PRN, Starting on Tue07/23/24 at 2307, Until Discontinued, Low blood sugar, Blood glucose LESS THAN 70 mg/dL and patient NOT ALERT or NPO and does not have IV access., After administration, attempt intravenous access and start dextrose 10% at 100 mL/hr. Repeat blood glucose in 15 minutes x 2 and notify provider. glucose chewable tablet 16 g 16 g (4 tablet), Oral, PRN, Starting on Tue07/23/24 at 2307, Until Discontinued, Low blood sugar, If blood glucose is LESS THAN 70 mg/dL and patient is alert and tolerating oral. Give 4 tablets (16g) Repeat blood glucose in 15 minutes. If blood glucose is LESS THAN 70 mg/dL, repeat treatment and recheck blood glucose in 15 minutes x 2. If blood glucose remains LESS THAN 70 mg/dL, notify provider. magnesium sulfate 2000 mg in water 50 mL IVPB 2,000 mg, IntraVENous, at 25 mL/hr, Administer over 2 Hours, PRN, Other, Magnesium Replacement, Starting on Tue07/23/24 at 1845, Mag Lab Replacement Action 1.4-1.6 mg/dL 2,000 mg Total Dose Given as 1,000 mg IVPB x 2 doses or 2,000 mg IVPB x 1 dose 1.0-1.3 mg/dL 4,000 mg Total Dose Given as 1,000 mg IVPB x 4 doses or 2,000 mg IVPB x 2 doses Less than 1.0 mg/dL CALL PHYSICIAN and give 4,000 mg Total Dose Given as 1,000 mg IVPB x 4 doses or 2,000 mg IVPB x 2 doses Infuse at 1,000 mg/hr Repeat Mag level 1 hour after final administration Protocol not for use in Patients with CrCl less than 30ml/min morphine injection 2 mg (CANCELED) 2 mg, IntraVENous, EVERY 4 HOURS PRN, Starting on 07/23/24 at 1848, Until Olena 07/26/24 at 1125, Pain Severe (7-10), breakthru, If oral and IV narcotics ordered, use oral first and only use IV if oral is ineffective or cannot take oral. Do Not give oral and IV within 1 hour of each other unless specifically ordered. 0040 (Given - Provider: Stella Lo RN)0516 (Given - Provider: Stella Lo RN)0955 (Given - Provider: Jesse Duron RN)1414 (Given - Provider: Jesse Duron RN)1833 (Given - Provider: Jesse Duron RN)2227 (Given - Provider: Stella Lo RN) 0238 (Given - Provider: Stella Lo RN)0637 (Given - Provider: Stella Lo RN)1111 (Given - Provider: Jesse Duron RN)1537 (Given - Provider: Jesse Duron, BREANNA)1954 (Given - Provider: Stella Lo RN)2357 (Given - Provider: Stella Lo RN) 0406 (Given - Provider: Stella Lo RN)0816 (Given - Provider: Annemarie Mcintosh RN) ondansetron (ZOFRAN) injection 4 mg(Linked Group 2) 4 mg, IntraVENous, EVERY 6 HOURS PRN, Starting on Tue07/23/24 at 1845, Until Discontinued, Nausea, Vomiting, Administer if oral route cannot be used. ondansetron (ZOFRAN-ODT) disintegrating tablet 4 mg(Linked Group 2) 4 mg, Oral, EVERY 8 HOURS PRN, Starting on Tue07/23/24 at 1845, Until Discontinued, Nausea, Vomiting oxyCODONE-acetaminophen (PERCOCET) 5-325 MG per tablet 1 tablet (CANCELED)(Linked Group 3) 1 tablet, Oral, EVERY 4 HOURS PRN, Starting on Tue07/24/24 at 1637, Until Tue07/24/24 at 1746, Pain Severe (7-10), Maximum dose of acetaminophen is 4000 mg from all sources in 24 hours. 1712 (Given - Provider: Jesse Duron RN) oxyCODONE-acetaminophen (PERCOCET) 5-325 MG per tablet 1 tablet(Linked Group 4) 1 tablet, Oral, EVERY 4 HOURS PRN, Starting on Tue07/24/24 at 2027, Until Discontinued, For moderate pain level 4-6, Maximum dose of acetaminophen is 4000 mg from all sources in 24 hours. 2046 (See Alternative - Provider: Stella Lo RN) 0046 (See Alternative - Provider: Stella Lo RN)0459 (See Alternative - Provider: Stella Lo RN)0905 (See Alternative - Provider: Jesse Duron RN)1316 (See Alternative - Provider: Jesse Duron RN)1750 (See Alternative - Provider: Jesse Duorn RN)2200 (See Alternative - Provider: Stella Lo RN) 0209 (See Alternative - Provider: Stella Lo RN)0609 (See Alternative - Provider: Stella oL RN)1125 (See Alternative - Provider: Annemarie Mcintosh RN)1530 (See Alternative - Provider: Annemarie Mcintosh RN) oxyCODONE-acetaminophen (PERCOCET) 5-325 MG per tablet 2 tablet (CANCELED)(Linked Group 5) 2 tablet, Oral, EVERY 4 HOURS PRN, Starting on Tue07/23/24 at 1848, Until Tue07/24/24 at 0954, For severe pain level 7-10, Maximum dose of acetaminophen is 4000 mg from all sources in 24 hours. 0235 (Given - Provider: Stella Lo RN)0720 (Given - Provider: Stella Lo RN) oxyCODONE-acetaminophen (PERCOCET) 5-325 MG per tablet 2 tablet(Linked Group 4) 2 tablet, Oral, EVERY 4 HOURS PRN, Starting on Tue07/24/24 at 2027, Until Discontinued, For severe pain level 7-10, Maximum dose of acetaminophen is 4000 mg from all sources in 24 hours. 2046 (Given - Provider: Stella Lo RN) 0046 (Given - Provider: Stella Lo RN)0459 (Given - Provider: Stella Lo RN)0905 (Given - Provider: Jesse Duron RN)1316 (Given - Provider: Jesse Duron RN)1750 (Given - Provider: Jesse Duron RN)2200 (Given - Provider: Stella Lo RN) 0209 (Given - Provider: Stella Lo RN)0609 (Given - Provider: Stella Lo RN)1125 (Given - Provider: Annemarie Mcintosh RN)1530 (Given - Provider: Annemarie Mcintosh RN) polyethylene glycol (GLYCOLAX) packet 17 g 17 g, Oral, DAILY PRN, Starting on Tue07/23/24 at 1845, Until Discontinued, Constipation, First line therapy for constipation povidone-iodine (BETADINE) 10 % external solution Topical, PRN, Wound Care, Please send to patient room STAT, Starting on Tue07/23/24 at 1848, For 1 dose, 1 Large bottle to bedside for Podiatry resident. Please bring to room for dressing changes Thank you Either from supply room or pharmacy. Wherever it is most readily available sodium chloride flush 0.9 % injection 5-40 mL 5-40 mL, IntraVENous, PRN, Starting on Tue07/23/24 at 1845, Until Discontinued, Line Care, After every IV [...] tablet 50 mg 50 mg, Oral, EVERY 6 HOURS PRN, Starting on Tue07/24/24 at 0953, Until Discontinued, Pain Severe (7-10), On hold since Tue07/24/2024 at 1638 until manually unheld 1315 (Given - Provider: Jesse Duron RN)1638 (Held by provider - Provider: Helen Cleveland MD - Reason: Other) Linked Groups Order Group 1: dextrose bolus 10% 125 mLJump to med 125 mL, IntraVENous, at 937.5 mL/hr, Administer over 8 Minutes, PRN, Other, Blood glucose 40 - 69 mg/dL and patient NOT ALERT or NPO, Starting on Tue07/23/24 at 2307, Repeat blood glucose in 15 minutes. If [...] patient NOT ALERT or NPO, Starting on Tue07/23/24 at 2307, Repeat blood glucose in 15 minutes. If blood glucose remains LESS THAN 70 mg/dL, repeat treatment and recheck blood glucose in 15 minutes x 2. If using glycemic management system, dose as instructed per system. If blood glucose remains LESS THAN 70 mg/dL after 2 intravenous boluses start dextrose 10% at 100 mL/hour and notify provider. Group 2: ondansetron (ZOFRAN-ODT) disintegrating tablet 4 mgJump to med 4 mg, Oral, EVERY 8 HOURS PRN, Starting on Tue07/23/24 at 1845, Until Discontinued, Nausea, Vomiting Or ondansetron (ZOFRAN) injection 4 mgJump to med 4 mg, IntraVENous, EVERY 6 HOURS PRN, Starting on Tue07/23/24 at 1845, Until Discontinued, Nausea, Vomiting, Administer if oral route cannot be used. Group 3: oxyCODONE-acetaminophen (PERCOCET) 5-325 MG per tablet 1 tablet (CANCELED)Jump to med 1 tablet, Oral, EVERY 4 HOURS PRN, Starting on Tue07/24/24 at 1637, Until Tue07/24/24 at 1746, Pain Severe (7-10), Maximum dose of acetaminophen is 4000 mg from all sources in 24 hours. And oxyCODONE (ROXICODONE) immediate release tablet 2.5 mg (CANCELED) 2.5 mg, Oral, EVERY 4 HOURS PRN, Starting on Tue07/24/24 at 1637, Until Tue07/24/24 at 1746, Pain Moderate (4-6) Group 4: oxyCODONE-acetaminophen (PERCOCET) 5-325 MG per tablet 1 tabletJump to med 1 tablet, Oral, EVERY 4 HOURS PRN, Starting on Tue07/24/24 at 2026, Until Discontinued, For moderate pain level 4-6, Maximum dose of acetaminophen is 4000 mg from all sources in 24 hours. Or oxyCODONE-acetaminophen (PERCOCET) 5-325 MG per tablet 2 tabletJump to med 2 tablet, Oral, EVERY 4 HOURS PRN, Starting on Tue07/24/24 at 202, Until Discontinued, For severe pain level 7-10, Maximum dose of acetaminophen is 4000 mg from all sources in 24 hours. Group 5: oxyCODONE-acetaminophen (PERCOCET) 5-325 MG per tablet 1 tablet (CANCELED) 1 tablet, Oral, EVERY 4 HOURS PRN, Starting on Tue07/23/24 at 1848, Until Tue07/24/24 at 0954, For moderate pain level 4-6, Maximum dose of acetaminophen is 4000 mg from all sources in 24 hours. Or oxyCODONE-acetaminophen (PERCOCET) 5-325 MG per tablet 2 tablet (CANCELED)Jump to med 2 tablet, Oral, EVERY 4 HOURS PRN, Starting on Tue07/23/24 at 1848, Until Tue07/24/24 at 0954, For severe pain level 7-10, Maximum dose of acetaminophen is 4000 mg from all sources in 24 hours. Scheduled Medication Order 09/13/2024 09/14/2024 09/15/2024 acetaminophen (TYLENOL) tablet 1,000 mg (COMPLETED) 1,000 mg, Oral, ONCE, 1 dose, On Tue09/14/24 at 0630, Administer 60 minutes prior to surgery., Pre-op (day of surgery) 0700 (Given - Provider: Mecca Ward RN) aspirin EC tablet 81 mg 81 mg, Oral, DAILY, First dose on Tue09/15/24 at 1100, Until Discontinued 1121 (Given - Provid er: Angely Martínez RN) atorvastatin (LIPITOR) tablet 40 mg 40 mg, Oral, NIGHTLY, First dose on Tue09/14/24 at 2245, Until Discontinued 230 (Given - Provider: Hui Gayle RN) 2100 (Due) ceFAZolin (ANCEF) 2000 mg in 20 mL IV syringe (COMPLETED) 2,000 mg, IntraVENous, ONCE, On Tue09/14/24 at 0715, For 1 dose, Administer over 5 mins., Pre-op (day of surgery) 0807 (Given - Provider: Johnathan Lara, SENIOR ARCHITECT/DESIGN MANAGER - MEDICAL ADMINISTRATIVE TECHNICIAN) ceFAZolin (ANCEF) 2000 mg in 20 mL IV syringe 2,000 mg, IntraVENous, EVERY 8 HOURS, First dose on Tue09/14/24 at 1600, Administer over 5 mins. 1656 (Given - Provider: Jesse Duron RN)2346 (Given - Provider: Hui Gayle RN) 0833 (Given - Provider: Angely Martínez RN)1600 (Due) cetirizine (ZYRTEC) tablet 10 mg 10 mg, Oral, DAILY, First dose on Tue09/15/24 at 0900, Until Discontinued, Substituted for Levocetirizine (XYZAL). 0832 (Given - Provid er: Angely Martínez RN) DULoxetine (CYMBALTA) extended release capsule 60 mg 60 mg, Oral, NIGHTLY, First dose on Tue09/14/24 at 2245, Until Discontinued, Do not crush or break. May add contents of capsule to apple juice or apple sauce, but not chocolate. 2305 (Given - Provider: Hui Gayle RN) 2100 (Due) empagliflozin (JARDIANCE) tablet 10 mg 10 mg, Oral, DAILY, First dose on 09/15/24 at 1100, Until Discontinued, Indication of Use: Type 2 diabetes, Note: Discontinuation of SGLT2 inhibitor therapy 3 days prior to surgery or major procedures is recommended given the risk for euglycemic diabetic ketoacidosis., On hold since 09/15/2024 at 1559 until manually unheld 112 (Given - Provid er: Angely Martínez RN)155 (Held by provider - Provider: Arias Simmons MD - Reason: Other) enoxaparin (LOVENOX) injection 40 mg 40 mg, SubCUTAneous, DAILY, First dose on Tue09/14/24 at 1400, Until Discontinued, Indication of Use: Prophylaxis-DVT/PE, Administer by deep subCUTAneous injection with pt lying down. Alternate injection sites on abdominal wall. Do not rub site after injection. Check with provider prior to any invasive procedure. 1655 (Given - Provider: Jesse Duron RN) 08 (Given - Provider: Angely Martínez RN) fenofibrate tablet 160 mg 160 mg, Oral, DAILY, First dose on Tue09/15/24 at 1100, Until Discontinued, Substituted for Fenofibrate (Non-Formulary Dose). 1119 (Given - Provid er: Angely Martínez RN) furosemide (LASIX) tablet 20 mg 20 mg, Oral, DAILY, First dose on Tue09/15/24 at 1100, Until Discontinued 1119 (Not Given - Provider: Angely Martínez RN - Reason: Order parameters not met) gabapentin (NEURONTIN) capsule 300 mg (COMPLETED) 300 mg, Oral, ONCE, 1 dose, On Tue09/14/24 at 0630, Administer 60 minutes prior to surgery., Pre-op (day of surgery) 0700 (Given - Provider: Mecca Ward RN) insulin glargine (LANTUS) injection vial 15 Units (CANCELED) 15 Units, SubCUTAneous, 2 TIMES DAILY, First dose on Tue09/14/24 at 2100, Until Discontinued 2020 (Given - Provider: Hui Gayle RN) 08 (Given - Provider: Angely Martínez RN) insulin lispro (HUMALOG,ADMELOG) injection vial 0-16 Units 0-16 Units, SubCUTAneous, 4 TIMES DAILY BEFORE MEALS & NIGHTLY, First dose on Tue09/15/24 at 1700, Until Discontinued, High Dose Corrective Algorithm Glucose: Dose: 70-179 No Insulin 180-249 4 Units 250-299 8 Units 300-349 12 Units Over 349 16 Units and notify physician Administer as soon as possible within 60 minutes of last blood glucose check 165 (Given - Provid er: Angely Martínez RN)2099 (Due) insulin lispro (HUMALOG,ADMELOG) injection vial 0-4 Units (CANCELED) 0-4 Units, SubCUTAneous, 4 TIMES DAILY BEFORE MEALS & NIGHTLY, First dose on Tue09/14/24 at 1700, Until Discontinued, Corrective Low Dose Algorithm Glucose: Dose: 70-179 No Insulin 180-249 1 Unit 250-299 2 Units 300-349 3 Units Over 349 4 Units and notify physician Administer as soon as possible within 60 minutes of last blood glucose check 165 (Given - Provider: Jesse Duron RN)2020 (Given - Provider: Hui Gayle RN) 07 (Given - Provider: Hui Gayle RN)1119 (Given - Provider: Angely Martínez RN) insulin regular human (humuLIN R U-500 KWIKPEN) 500 UNIT/ML concentrated injection pen 100 Units 100 Units, SubCUTAneous, 2 TIMES DAILY WITH MEALS, First dose on Tue09/15/24 at 1700, Until Discontinued, This is a highly concentrated insulin. After attaching the pen needle, prime with 5 units to ensure proper dosing. 170 (Due) lisinopril (PRINIVIL;ZESTRIL) tablet 10 mg 10 mg, Oral, DAILY, First dose on Tue09/15/24 at 1100, Until Discontinued 1120 (Not Given - Provider: Angely Martínez RN - Reason: Order parameters not met) melatonin tablet 3 mg 3 mg, Oral, NIGHTLY, First dose on Tue09/14/24 at 2100, Until Discontinued 2021 (Given - Provider: Hui Gayle RN) 2099 (Due) methocarbamol (ROBAXIN) tablet 500 mg 500 mg, Oral, 4 TIMES DAILY, First dose on Tue09/15/24 at 1300, Until Discontinued 1346 (Given - Provid er: Angely Martínez RN)165 (Given - Provider: Angely Martínez RN)2100 (Due) metoprolol succinate (TOPROL XL) extended release tablet 25 mg 25 mg, Oral, EVERY EVENING, First dose on Tue09/14/24 at 2245, Until Discontinued, Do not crush or chew. 2309 (Not Given - Provider: Hui Gayle RN - Reason: Other) 165 (Given - Provider: Angely Martínez RN) metoprolol succinate (TOPROL XL) extended release tablet 50 mg 50 mg, Oral, DAILY BEFORE BREAKFAST, First dose on Tue09/15/24 at 0700, Until Discontinued, Do not crush or chew. 07 (Given - Provid er: Hui Gayle RN) montelukast (SINGULAIR) tablet 10 mg 10 mg, Oral, NIGHTLY, First dose on Tue09/14/24 at 2245, Until Discontinued 230 (Given - Provider: Hui Gayle RN) 2100 (Due) nicotine (NICODERM CQ) 14 MG/24HR 1 patch 1 patch, TransDERmal, Administer over 24 Hours, DAILY, First dose on Tue09/14/24 at 1145, Apply new patch to nonhairy, clean, dry skin on the upper body or upper outer arm. Rotate patch sites. Notify pharmacy if patient or provider prefers patch to be removed at bedtime and replaced in the morning. Hazardous Medication -- Refer to facility policy for handling and disposal. 1409 (Not Given - Provider: Jesse Duron RN - Reason: Patient/family refused) 0832 (Not Given - Provider: Angely Martínez RN - Reason: Patient/family refused) pantoprazole (PROTONIX) tablet 40 mg 40 mg, Oral, DAILY BEFORE BREAKFAST, First dose on Tue09/16/24 at 0700, Until Discontinued, Do not crush or break. Substituted for Omeprazole (PRILOSEC). pioglitazone (ACTOS) tablet 30 mg 30 mg, Oral, DAILY, First dose on Tue09/15/24 at 1100, Until Discontinued 1346 (Given - Provid er: Angely Martínez RN) pregabalin (LYRICA) capsule 25 mg 25 mg, Oral, DAILY, First dose on Tue09/15/24 at 1100, Until Discontinued 1120 (Given - Provid er: Agnely Martínez RN) rOPINIRole (REQUIP) tablet 4 mg 4 mg, Oral, NIGHTLY, First dose on Tue09/14/24 at 2245, Until Discontinued 2305 (Given - Provider: Hui Gayle RN) 2100 (Due) sodium chloride flush 0.9 % injection 5-40 mL 5-40 mL, IntraVENous, EVERY 12 HOURS SCHEDULED (2 times per day), First dose on Tue09/14/24 at 1145, Until Discontinued, For Line Patency: Peripheral IV [...] Midline or Central Line = 20 mL/lumen 1409 (Not Given - Provider: Jesse Duron RN - Reason: IV Fluid Infusing)1914 (Not Given - Provider: Hui Gayle RN - Reason: IV Fluid Infusing) 0833 (Not Given - Provider: Angely Martínez RN - Reason: IV Fluid Infusing)2100 (Due) sodium chloride flush 0.9 % injection 5-40 mL 5-40 mL, IntraVENous, EVERY 12 HOURS SCHEDULED (2 times per day), First dose on Tue09/14/24 at 2100, Until Discontinued, For Line Patency: Peripheral IV [...] Midline or Central Line = 20 mL/lumen 191 (Not Given - Provider: Hui Gayle RN - Reason: IV Fluid Infusing) 0832 (Not Given - Provider: Angely Martínez RN - Reason: IV Fluid Infusing)2100 (Due) traMADol (ULTRAM) tablet 100 mg 100 mg, Oral, 2 times daily, First dose on Tue09/15/24 at 1145, Until Discontinued 1157 (Given - Provid er: Angely Martínez RN)2100 (Due) Vitamin D (CHOLECALCIFEROL) tablet 5,000 Units 5,000 Units, Oral, DAILY, 7 doses, First dose on Tue09/14/24 at 1400, Last dose on Tue09/20/24 at 0900, Labeling may look different. 25 cch=0420 Units. Please double check dosages. 1602 (Not Given - Provider: Jesse Duron RN - Reason: Patient/family refused) 0832 (Given - Provider: Angeyl Martínez RN) Continuous Medication Order 09/13/2024 09/14/2024 09/15/2024 0.9 % sodium chloride infusion (CANCELED) IntraVENous, at 125 mL/hr, CONTINUOUS, Starting on Tue09/14/24 at 0630, Pre-op (day of surgery) 0748 (New Bag - Provider: JOSSE Oglesby CRNA)1040 (New Bag - Provider: JOSSE Oglesby CRNA)1117 (Anesthesia Volume Adjustment - Provider: JOSSE Oglesby CRNA) 0.9 % sodium chloride infusion IntraVENous, at 75 mL/hr, CONTINUOUS, Starting on Tue09/14/24 at 1145, For 24 hours, Complete last bag that is running at 24 hours and then saline lock IV 1411 (New Bag - Provider: Jesse Duron RN) 1719 (Stopped - Provider: Angely Martínez RN) PRN Medication Order 09/13/2024 09/14/2024 09/15/2024 0.9 % sodium chloride infusion IntraVENous, at 5-250 mL/hr, PRN, if patient receiving piggyback infusions and maintenance fluids are not ordered, Starting on Tue09/14/24 at 1124, For piggyback infusion, administer at same rate as piggyback for a total of 25 mL. Enter 25 mL into dose field and piggyback rate into rate field of order. If piggyback is infusing at a rate less than 100 mL/hr, enter 25 mL into dose field and 100 mL/hr into rate field of order. 0.9 % sodium chloride infusion IntraVENous, at 5-250 mL/hr, PRN, if patient receiving piggyback infusions and maintenance fluids are not ordered, Starting on Tue09/14/24 at 1338, For piggyback infusion, administer at same rate as piggyback for a total of 25 mL. Enter 25 mL into dose field and piggyback rate into rate field of order. If piggyback is infusing at a rate less than 100 mL/hr, enter 25 mL into dose field and 100 mL/hr into rate field of order. acetaminophen (TYLENOL) suppository 650 mg(Linked Group 1) 650 mg, Rectal, EVERY 6 HOURS PRN, Starting on Tue09/14/24 at 1124, Until Discontinued, Pain Mild (1-3), Fever, For temp greater than 100.4 F (38 C), Administer if oral route cannot be used. acetaminophen (TYLENOL) tablet 650 mg(Linked Group 1) 650 mg, Oral, EVERY 6 HOURS PRN, Starting on Tue09/14/24 at 1124, Until Discontinued, Pain Mild (1-3), Fever, For temp greater than 100.4 F (38 C), Maximum dose of acetaminophen is 4000 mg from all sources in 24 hours. albuterol sulfate HFA (PROVENTIL;VENTOLIN;PROAIR) 108 (90 Base) MCG/ACT inhaler 2 puff 2 puff, Inhalation, EVERY 4 HOURS PRN, Starting on Tue09/14/24 at 2224, Until Discontinued, Wheezing, Initiate RT Bronchodilator Protocol: Yes - Inpatient Protocol BUPivacaine (PF) (MARCAINE) 0.5 % injection (CANCELED) PRN, Starting on Tue09/14/24 at 1114, Until Tue09/14/24 at 1129, Intra-op 1114 (Given - Provider: Urbano Merino DPM) dextrose 10 % infusion IntraVENous, at 100 mL/hr, CONTINUOUS PRN, if blood glucose remains LESS THAN 70 mg/dL after 2 dextrose 10% intravenous boluses or administration of glucagon, Starting on Tue09/14/24 at 1622, If blood glucose fails to stabilize after 2 dextrose 10% intravenous boluses or glucagon administration, start dextrose 10% infusion at 100 mL/hour and repeat blood glucose at 30 and 60 minutes. If blood glucose is GREATER THAN 70 mg/dL after 60 minutes, discontinue dextrose 10% infusion. dextrose bolus 10% 125 mL(Linked Group 2) 125 mL, IntraVENous, at 937.5 mL/hr, Administer over 8 Minutes, PRN, Other, Blood glucose 40 - 69 mg/dL and patient NOT ALERT or NPO, Starting on Tue09/14/24 at 1622, Repeat blood glucose in 15 minutes. If blood glucose remains LESS THAN 70 mg/dL, repeat treatment and recheck blood glucose in 15 minutes x 2. If using glycemic management system, dose as instructed per system. If blood glucose remains LESS THAN 70 mg/dL after 2 intravenous boluses start dextrose 10% at 100 mL/hour and notify provider. dextrose bolus 10% 250 mL(Linked Group 2) 250 mL, IntraVENous, at 937.5 mL/hr, Administer over 16 Minutes, PRN, Other, Blood glucose LESS THAN 40 mg/dL and patient NOT ALERT or NPO, Starting on Tue09/14/24 at 1622, Repeat blood glucose in 15 minutes. If blood glucose remains LESS THAN 70 mg/dL, repeat treatment and recheck blood glucose in 15 minutes x 2. If using glycemic management system, dose as instructed per system. If blood glucose remains LESS THAN 70 mg/dL after 2 intravenous boluses start dextrose 10% at 100 mL/hour and notify provider. glucagon injection 1 mg 1 mg, SubCUTAneous, PRN, Starting on Tue09/14/24 at 1622, Until Discontinued, Low blood sugar, Blood glucose LESS THAN 70 mg/dL and patient NOT ALERT or NPO and does not have IV access., After administration, attempt intravenous access and start dextrose 10% at 100 mL/hr. Repeat blood glucose in 15 minutes x 2 and notify provider. Reconstitute powder for injection by adding 1 mL of telecommunication equipment repairer-supplied sterile diluent or sterile water for injection to a vial containing 1 mg of the drug, to provide solutions containing 1 mg/mL. Shake vial gently to dissolve. glucose chewable tablet 16 g 16 g (4 tablet), Oral, PRN, Starting on Tue09/14/24 at 1622, Until Discontinued, Low blood sugar, If blood glucose is LESS THAN 70 mg/dL and patient is alert and tolerating oral. Give 4 tablets (16g) Repeat blood glucose in 15 minutes. If blood glucose is LESS THAN 70 mg/dL, repeat treatment and recheck blood glucose in 15 minutes x 2. If blood glucose remains LESS THAN 70 mg/dL, notify provider. magnesium sulfate 2000 mg in water 50 mL IVPB 2,000 mg, IntraVENous, at 25 mL/hr, Administer over 2 Hours, PRN, Other, Magnesium Replacement, Starting on Tue09/14/24 at 1124, Mag Lab Replacement Action 1.4-1.6 mg/dL 2,000 mg Total Dose Given as 1,000 mg IVPB x 2 doses or 2,000 mg IVPB x 1 dose 1.0-1.3 mg/dL 4,000 mg Total Dose Given as 1,000 mg IVPB x 4 doses or 2,000 mg IVPB x 2 doses Less than 1.0 mg/dL CALL PHYSICIAN and give 4,000 mg Total Dose Given as 1,000 mg IVPB x 4 doses or 2,000 mg IVPB x 2 doses Infuse at 1,000 mg/hr Repeat Mag level 1 hour after final administration Protocol not for use in Patients with CrCl less than 30ml/min morphine injection 4 mg (CANCELED)(Linked Group 3) 4 mg, IntraVENous, EVERY 2 HOURS PRN, Starting on Tue09/14/24 at 1338, Until 09/15/24 at 0734, Pain Severe (7-10), for breakthrough pain, If oral and IV narcotics ordered, use oral first and only use IV if oral is ineffective or cannot take oral. Do Not give oral and IV within 1 hour of each other unless specifically ordered. 1830 (Given - Provider: Jesse Duron, BREANNA)2205 (Given - Provider: Hui Gayle RN) ondansetron (ZOFRAN) injection 4 mg(Linked Group 4) 4 mg, IntraVENous, EVERY 6 HOURS PRN, Starting on Tue09/14/24 at 1124, Until Discontinued, Nausea, Vomiting, Administer if oral route cannot be used. ondansetron (ZOFRAN-ODT) disintegrating tablet 4 mg(Linked Group 4) 4 mg, Oral, EVERY 8 HOURS PRN, Starting on Tue09/14/24 at 1124, Until Discontinued, Nausea, Vomiting oxyCODONE-acetaminophen (PERCOCET) 5-325 MG per tablet 2 tablet (CANCELED) 2 tablet, Oral, EVERY 4 HOURS PRN, Starting on 09/14/24 at 1338, Until 09/15/24 at 0734, For moderate pain level 4-6, Maximum dose of acetaminophen is 4000 mg from all sources in 24 hours. 1958 (Given - Provider: Hui Gayle RN) 000 (Given - Provider: Hui Gayle RN)442 (Given - Provider: Hui Gayle RN) oxyCODONE-acetaminophen (PERCOCET) 5-325 MG per tablet 2 tablet (CANCELED)(Linked Group 5) 2 tablet, Oral, EVERY 4 HOURS PRN, Starting on 09/15/24 at 0734, Until 09/15/24 at 1115, For severe pain level 7-10, Maximum dose of acetaminophen is 4000 mg from all sources in 24 hours. 0831 (Given - Provid er: Angely Martínez RN) polyethylene glycol (GLYCOLAX) packet 17 g 17 g, Oral, DAILY PRN, Starting on Tue09/14/24 at 1124, Until Discontinued, Constipation, First line therapy for constipation potassium bicarb-citric acid (EFFER-K) effervescent tablet 40 mEq(Linked Group 6) 40 mEq, Oral, PRN, Starting on Tue09/14/24 at 1124, Until Discontinued, Per Potassium Replacement Protocol, Administer as alternative if patient unable to tolerate oral tablet. K Lab Replacement Action 3.1 to 3.5 40 mEq ORAL x 1 Under 3.1 Refer to IV replacement protocol Recheck K level in AM. Protocol not for use in patients with CrCl less than 30 mL/min. Do not chew or crush. Dissolve flavored tablets completely in 3 to 4 ounces of cold water; unflavored tablets may be dissolved in 3 to 4 ounces of cold juice. Patient to sip slowly over a 5 to 10 minute period. May further dilute if GI adverse effects occur. potassium chloride (KLOR-CON M) extended release tablet 40 mEq(Linked Group 6) 40 mEq, Oral, PRN, Starting on Tue09/14/24 at 1124, Until Discontinued, Potassium Replacement, May give alternative linked oral order (ordered as effervescent, packet, or liquid solution) if patient unable to tolerate tablet. K Lab Replacement Action 3.1 to 3.5 40 mEq ORAL x 1 Under 3.1 Refer to IV replacement protocol Recheck K level in AM. Protocol not for use in patients with CrCl less than 30 mL/min. Do not crush, chew, or suck on tablet. Tablet may also be broken in half and each half swallowed separately. potassium chloride 10 mEq/100 mL IVPB (Peripheral Line)(Linked Group 6) 10 mEq, IntraVENous, PRN, Starting on Tue09/14/24 at 1124, Until Discontinued, at 100 mL/hr, Potassium Replacement, K Lab Replacement Action 2.7 to 3.0 10 mEq IVPB x 6 doses (60 mEq Total) Under 2.7 CALL PROVIDER and administer 10 mEq IVPB x 6 doses (60 mEq Total) Infuse at 10 mEq/hr. Repeat Potassium lab 1 hour after final administration. Protocol not for use in patients with CrCl less than 30 mL/min. sodium chloride flush 0.9 % injection 5-40 mL 5-40 mL, IntraVENous, PRN, Starting on Tue09/14/24 at 1124, Until Discontinued, Line Care, After every IV [...] Midline or Central Line = 20 mL/lumen sodium chloride flush 0.9 % injection 5-40 mL 5-40 mL, IntraVENous, PRN, Starting on Tue09/14/24 at 1338, Until Discontinued, Line Care, After every IV [...] Midline or Central Line = 20 mL/lumen Linked Groups Order Group 1: acetaminophen (TYLENOL) tablet 650 mgJump to med 650 mg, Oral, EVERY 6 HOURS PRN, Starting on Tue09/14/24 at 1124, Until Discontinued, Pain Mild (1-3), Fever, For temp greater than 100.4 F (38 C), Maximum dose of acetaminophen is 4000 mg from all sources in 24 hours. Or acetaminophen (TYLENOL) suppository 650 mgJump to med 650 mg, Rectal, EVERY 6 HOURS PRN, Starting on Tue09/14/24 at 1124, Until Discontinued, Pain Mild (1-3), Fever, For temp greater than 100.4 F (38 C), Administer if oral route cannot be used. Group 2: dextrose bolus 10% 125 mLJump to med 125 mL, IntraVENous, at 937.5 mL/hr, Administer over 8 Minutes, PRN, Other, Blood glucose 40 - 69 mg/dL and patient NOT ALERT or NPO, Starting on Tue09/14/24 at 1622, Repeat blood glucose in 15 minutes. If [...] patient NOT ALERT or NPO, Starting on Tue09/14/24 at 1622, Repeat blood glucose in 15 minutes. If blood glucose remains LESS THAN 70 mg/dL, repeat treatment and recheck blood glucose in 15 minutes x 2. If using glycemic management system, dose as instructed per system. If blood glucose remains LESS THAN 70 mg/dL after 2 intravenous boluses start dextrose 10% at 100 mL/hour and notify provider. Group 3: morphine injection 2 mg (CANCELED) 2 mg, IntraVENous, EVERY 2 HOURS PRN, Starting on Tue09/14/24 at 1338, Until Tue09/15/24 at 0734, Pain Moderate (4-6), for breakthrough pain, If oral and IV narcotics ordered, use oral first and only use IV if oral is ineffective or cannot take oral. Do Not give oral and IV within 1 hour of each other unless specifically ordered. Or morphine injection 4 mg (CANCELED)Jump to med 4 mg, IntraVENous, EVERY 2 HOURS PRN, Starting on Tue09/14/24 at 1338, Until 09/15/24 at 0734, Pain Severe (7-10), for breakthrough pain, If oral and IV narcotics ordered, use oral first and only use IV if oral is ineffective or cannot take oral. Do Not give oral and IV within 1 hour of each other unless specifically ordered. Group 4: ondansetron (ZOFRAN-ODT) disintegrating tablet 4 mgJump to med 4 mg, Oral, EVERY 8 HOURS PRN, Starting on Tue09/14/24 at 1124, Until Discontinued, Nausea, Vomiting Or ondansetron (ZOFRAN) injection 4 mgJump to med 4 mg, IntraVENous, EVERY 6 HOURS PRN, Starting on Tue09/14/24 at 1124, Until Discontinued, Nausea, Vomiting, Administer if oral route cannot be used. Group 5: oxyCODONE-acetaminophen (PERCOCET) 5-325 MG per tablet 1 tablet (CANCELED) 1 tablet, Oral, EVERY 4 HOURS PRN, Starting on 09/15/24 at 0734, Until 09/15/24 at 1115, For moderate pain level 4-6, Maximum dose of acetaminophen is 4000 mg from all sources in 24 hours. Or oxyCODONE-acetaminophen (PERCOCET) 5-325 MG per tablet 2 tablet (CANCELED)Jump to med 2 tablet, Oral, EVERY 4 HOURS PRN, Starting on 09/15/24 at 0734, Until 09/15/24 at 1115, For severe pain level 7-10, Maximum dose of acetaminophen is 4000 mg from all sources in 24 hours. Group 6: potassium chloride (KLOR-CON M) extended release tablet 40 mEqJump to med 40 mEq, Oral, PRN, Starting on Tue09/14/24 at 1124, Until Discontinued, Potassium Replacement, May give alternative linked oral order (ordered as effervescent, packet, or liquid solution) if patient unable to tolerate tablet. K Lab Replacement Action 3.1 to 3.5 40 mEq ORAL x 1 Under 3.1 Refer to IV replacement protocol Recheck K level in AM. Protocol not for use in patients with CrCl less than 30 mL/min. Do not crush, chew, or suck on tablet. Tablet may also be broken in half and each half swallowed separately. Or potassium bicarb-citric acid (EFFER-K) effervescent tablet 40 mEqJump to med 40 mEq, Oral, PRN, Starting on Tue09/14/24 at 1124, Until Discontinued, Per Potassium Replacement Protocol, Administer as alternative if patient unable to tolerate oral tablet. K Lab Replacement Action 3.1 to 3.5 40 mEq ORAL x 1 Under 3.1 Refer to IV replacement protocol Recheck K level in AM. Protocol not for use in patients with CrCl less than 30 mL/min. Do not chew or crush. Dissolve flavored tablets completely in 3 to 4 ounces of cold water; unflavored tablets may be dissolved in 3 to 4 ounces of cold juice. Patient to sip slowly over a 5 to 10 minute period. May further dilute if GI adverse effects occur. Or potassium chloride 10 mEq/100 mL IVPB (Peripheral Line)Jump to med 10 mEq, IntraVENous, PRN, Starting on Tue09/14/24 at 1124, Until Discontinued, at 100 mL/hr, Potassium Replacement, K Lab Replacement Action 2.7 to 3.0 10 mEq IVPB x 6 doses (60 mEq Total) Under 2.7 CALL PROVIDER and administer 10 mEq IVPB x 6 doses (60 mEq Total) Infuse at 10 mEq/hr. Repeat Potassium lab 1 hour after final administration. Protocol not for use in patients with CrCl less than 30 mL/min. Goals (unrecognized section and content) Goals may [...] BE BASED ON THE PRIMARY CLINICAL RECORDS. [facility] provides no warranty or guarantee of the accuracy or completeness of information in this document.
--- NOTE | 2025-02-13 14:34 | PM.CN ---
Consult Note: HPI Data of Consult Patient: known to practice within the last 3 years Requesting Physician: Suzi Longoria NP Primary Care Provider: Non-Staff Physician, Family Provider: LEESA Consult Narrative Reason for consult: low back pain Narrative: Risa Joshi a 49 year old female with chronic diffuse pain and low back pain presents for evaluation. Last seen 07/19 for right L4/5 L5/S1 facet RFA with >50% improvement in axial facet mediated low back pain for 6 months. Pain today 04/04 in low back. pt has failed to benefit from > 6 weeks of PT and provider guided HEP for low back pain. since last visit she fx her foot and has undergone 2 surgeries, her podiatry/ortho team has been managing her medications. she continues to utilize tramadol 100mg BID PRN pain, diclofenac 75mg BID PRN pain, tylenol, pregabalin 50mg TID, ropinirole 4mg HS, robaxin 500mg TID PRN with mild relief without side effects. has not been evaluated recently by rheumatology. cc:: CC: Suzi Longoria NP Review of Systems ROS Musculoskeletal Reports: back pain and joint pain PFSH [facility] Medical History S/P extracorporeal shock wave therapy ?Z98.890 - Other specified postprocedural states (ICD-10) Ureteral stent displacement ?T83.122A - Displacement of indwelling ureteral stent, initial encounter (ICD-10) Goiter ?E04.9 - Nontoxic goiter, unspecified (ICD-10) RSD (reflex sympathetic dystrophy) ?G90.50 - Complex regional pain syndrome I, unspecified (ICD-10) TMJ (dislocation of temporomandibular joint) ?S03.00XA - Dislocation of jaw, unspecified side, initial encounter (ICD-10) Upper back pain ?M54.9 - Dorsalgia, unspecified (ICD-10) Neck pain ?M54.2 - Cervicalgia (ICD-10) Low back pain ?M54.50 - Low back pain, unspecified (ICD-10) Fibromyalgia ?M79.7 - Fibromyalgia (ICD-10) Neuropathy ?G62.9 - Polyneuropathy, unspecified (ICD-10) Hyperthyroidism ?E05.90 - Thyrotoxicosis, unspecified without thyrotoxic crisis or storm (ICD-10) Heart palpitations ?R00.2 - Palpitations (ICD-10) Angina at rest ?I20.8 - Other forms of angina pectoris (ICD-10) Kidney stone ?N20.0 - Calculus of kidney (ICD-10) Asthma ?J45.909 - Unspecified asthma, uncomplicated (ICD-10) Smoker ?F17.200 - Nicotine dependence, unspecified, uncomplicated (ICD-10) Hypertension ?I10 - Essential (primary) hypertension (ICD-10) High cholesterol ?E78.00 - Pure hypercholesterolemia, unspecified (ICD-10) Diabetes ?E11.9 - Type 2 diabetes mellitus without complications (ICD-10) Surgical History S/P insertion of spinal cord stimulator ?Z96.89 - Presence of other specified functional implants (ICD-10) H/O: hysterectomy ?Z90.710 - Acquired absence of both cervix and uterus (ICD-10) S/P shoulder surgery ?Z98.890 - Other specified postprocedural states (ICD-10) Meds Home Medications and Allergies Home Medications ?Medication ?Instructions ?Recorded ?Confirmed ?Type aspirin 81 mg tablet,delayed 81 mg PO DAILY 02/25/23 07/10/24 History release (Adult Low Dose Aspirin) atorvastatin 80 mg tablet (Lipitor) 80 mg PO DAILY 02/25/23 07/10/24 History diclofenac sodium 75 mg 75 mg PO BID 02/25/23 07/10/24 History tablet,delayed release fenofibrate micronized PO QDAY 02/25/23 History fluticasone propionate 50 1 spray intranasal DAILY 02/25/23 07/10/24 History mcg/actuation nasal spray,suspension (Flonase Allergy Relief) furosemide 20 mg tablet (Lasix) 20 mg PO DAILY 02/25/23 07/10/24 History insulin lispro 200 unit/mL (3 mL) 60 unit subcut TID 02/25/23 07/10/24 History subcutaneous pen (Humalog KwikPen U-200 Insulin) levocetirizine 5 mg tablet (Xyzal) 5 mg PO DAILY 02/25/23 07/10/24 History lisinopril 10 mg tablet 10 mg PO DAILY 02/25/23 07/10/24 History metoprolol succinate 50 mg PO QDAY 02/25/23 07/10/24 History montelukast 10 mg tablet 10 mg PO QPM 02/25/23 07/10/24 History (Singulair) albuterol sulfate 90 mcg/actuation 2 inh inhalation TID PRN shortness 05/31/23 07/10/24 History aerosol inhaler of breath or wheezing insulin regular hum U-500 conc 500 120 unit subcut BID 07/12/23 07/10/24 History unit/mL(3 mL) subcut pen (Humulin R U-500 (Conc) Insulin Kwikpen) tramadol 50 mg tablet 100 mg (2 x 50 mg) PO BID PRN pain 01/04/24 07/10/24 Rx #120 tabs gabapentin 600 mg tablet 600 mg PO TID #90 tabs 02/14/24 07/10/24 Rx duloxetine 60 mg capsule,delayed 60 mg PO DAILY #30 caps 07/04/24 07/10/24 Rx release naloxone 4 mg/actuation nasal 4 mg intranasal Q2M PRN opioid 07/04/24 07/10/24 Rx spray (Narcan) overdose #2 ea ropinirole 4 mg tablet 4 mg PO DAILY #30 tabs 07/04/24 07/10/24 Rx empagliflozin .ROUTE 07/10/24 History methocarbamol 500 mg tablet 1,000 mg PO TID 07/10/24 07/10/24 History pregabalin 50 mg capsule (Lyrica) 50 mg PO TID 07/10/24 07/10/24 History pregabalin 50 mg capsule (Lyrica) 50 mg PO TID #90 caps 09/04/24 Rx ropinirole 4 mg tablet 4 mg PO DAILY #30 tabs 09/04/24 Rx duloxetine 60 mg capsule,delayed 60 mg PO DAILY #30 caps 10/17/24 Rx release methocarbamol 500 mg tablet See Rx Instructions .Route 10/17/24 Rx .COMPLEX PRN spasms #180 tabs pregabalin 50 mg capsule (Lyrica) 50 mg PO TID #90 caps 10/17/24 Rx pregabalin 50 mg capsule (Lyrica) 50 mg PO TID #90 caps 12/06/24 Rx ropinirole 4 mg tablet 4 mg PO DAILY #30 tabs 12/06/24 Rx Allergies Allergy/AdvReac Type Severity Reaction Status Date / Time Penicillins Allergy Unknown Unknown Verified 07/10/24 08:15 Exam Constitutional Documenting provider has reviewed patient's vital signs: yes Common normals: no apparent distress, oriented x3, healthy appearing, alert and well nourished General appearance: cooperative HENMT Common normals: normocephalic, hearing grossly normal bilaterally and moist oral mucous membranes Head and scalp: normocephalic Eye Common normals: PERRL Pupil: PERRL Neck & C-Spine Common normals: full ROM General: normal visual inspection Chest Common normals: inspection of chest normal Respiratory Common normals: normal respiratory effort, no retractions and no use of accessory muscles Back & Pelvis Lumbar spine/lower back: ROM limited, pain with ROM, lumbar spinal tenderness Lumbar spinal tenderness location: L3, L4 and L5 and straight leg raise negative bilaterally Other: strength 5/5 in BLE positive facet loading tenderness noted L3-S1 Extremity Other: left knee brace and left foot brace Neuro Common normals: oriented x3 Sensorium/orientation: alert Psych Common normals: mental status grossly normal, thought process normal, cooperative, affect normal, speech normal and activity/motor behavior normal Speech: normal speech Thought process: normal thought process Results Additional Findings Additional findings: If on a controlled substance or opioids, I have checked an [place] report on this patient and there are no aberrancies noted in the prescribing history.??If on a controlled substance or opioid a drug screen was completed and reviewed within the last year, and if there has not been a drug screen completed we ordered one today to monitor higher risk, state monitored pain medication use. As part of providing excellent, safe, comprehensive care, the following was completed at our patient's visit: 1. A medication reconciliation and review to ensure accurate knowledge of current/active medications, including asking our patients to inform us about any [id number] medications or herbal remedies/nutritional supplements/alternative remedies. 2. A review to specifically ensure our patients have had annual screening for screening for depression, screening for tobacco use, and screening for unhealthy alcohol use. For concerning screenings had a discussion with the patient, provided patient education, and recommended follow-up with primary care provider when appropriate. If patient noted with a risk of falling, they received education on strength, gait, and balance training to prevent future risk of falling. Portions of this note may have been carried over from the previous visit and updated as appropriate. Please note this office utilizes paper charting in addition to the electronic medical record. A list of current medications, vitals, and PMH is available there as the clinical staff outside of myself do not have access to Med fusion charting during the clinic day operations. As part of providing quality comprehensive care the current medications, vitals, and PMH were reviewed in the paper chart. Assessment and Plan Assessment and Plan (1) Lumbar spondylosis: Assessment and Plan: 730-24 bilateral L4-5 L5-S1 MBB with >80% improvement in pain and functional ability while anesthetized 9-16-24 bilateral L4-5 L5-S1 MBB with >80% improvement in pain and functional ability while anesthetized 10-15-24 right L4-5 L5-S1 facet RFA >50% improvement in pain and functional ability for at least 6 months, procedure completed with MAC sedation (2) Chronic prescription opiate use: (3) Fibromyalgia: (4) Neuropathy: (5) RSD (reflex sympathetic dystrophy): Plan bilateral L4-5 L5-S1 facet medial branch RFA under fluoroscopy with MAC sedation, previously had significant discomfort and difficulty tolerating her injections which increase risk of patient harm and complications update UDS today continue current medications, risks vs benefits reviewed encouraged to f/u with rheumatology for diffuse joint pain f/u 1 month after RFA complete
== END 2025-02-13 13:52 | disposition home or self-care (01) ==
PROVIDERS: Visit Provider Nurse Practitioner
DX: M47.816 Spondylosis without myelopathy or radiculopathy, lumbar region (principal); Z79.891 Long term (current) use of opiate analgesic; M79.7 Fibromyalgia; G62.9 Polyneuropathy, unspecified; G90.50 Complex regional pain syndrome I, unspecified
CPT/HCPCS: G0463

== ENCOUNTER 2025-02-25 07:18 | Day surgery (SDC) | payer OTHER, SELFPAY ==
--- OUTSIDE RECORDS SUMMARY | 2013-08-31 03:36 | XMS_ITS | Encounter Summary ---
Author Organization [facility] Address [address] [place] [address] Care Team Providers Care Program Consultant Name Role Phone Leola Edward MD Primary Care Provider [phone] Encounter Details Date Type Department Care Team (Late st Contact Info) Description 08/31/2013 2:36 AM EST Hospital Encounter MTH PRE ADMIT [address] [place] [address] Evan Everett MD [address] [facility], [address] [place] [id number] Social History Tobacco Use Types Packs/Day Years Used Date Smoking Tobacco: Every Day Cigarettes 2 15 Smokeless Tobacco: Never Alcohol Use Standard Drinks/Week Comments No 0 (1 standard drink = 0.6 oz pur e alcohol) [facility] Utilities Answer Date Recorded In the past 12 months has [employer] electric, gas, oil, or water company threatened to shut off services in your home? No 01/17/2025 AUDIT-C Answer Date Recorded Q1: How often do you have a drink containing alcohol? Never 06/11/2023 Q2: How many drinks containi ng alcohol do you have on a typical day when you are drinking? Patient does not drink Frequency of Binge Drinking Not on file 05/27 Overall Financial Resource Strain (CARDIA) Answe r Date Recorded How hard is it for you to pa y for the very basics like food, housing, medical care, and heating? Patient declined 05/17/2024 PHQ-2 Answer Date Recorded PHQ-9 Total Score 0 01/17/2025 Hunger Vital Sign Answer Date Recorded Within the past 12 months, y ou worried that your food would run out before you got the money to buy more. Never true 01/18/20 25 Within the past 12 months, t he food you bought just didn't last and you didn't have money to get more. Never true 01/17/2025 PRAPARE - Transportation Answer Date Re corded In the past 12 months, has l ack of transportation kept you from medical appointments or from getting medications? No 12/26 In the past 12 months, has l ack of transportation kept you from meetings, work, or from getting things needed for daily living? No 01/17/2025 Housing Stability Vital Sign Answer Elver e Recorded Unable to Pay for Housing in the Last Year Not o n file 09/28/2023 Number of Places Lived in the Last Year Not on f ile 09/28/2023 In the last 12 months, was t here a time when you did not have a steady place to sleep or slept in a skilled nursing (including now)? Patient declined 09/28/2023 Housing Stability Vital Sign Answer Elvre e Recorded In the last 12 months, was t here a time when you were not able to pay the mortgage or rent on time? No 01/17/2025 In the past 12 months, how m any times have you moved where you were living? 0 01/17/2025 At any time in the past 12 m [facility], were you homeless or living in a skilled nursing (including now)? No 01/17/2025 Food Insecurity Answer Date Recorded Within the past 12 months, y ou worried that your food would run out before you got the money to buy more. 1 01/17/2025 Within the past 12 months, t he food you bought just didn't last and you didn't have money to get more. 1 01/17/2025 Interpersonal Safety Domain Source: IP Abuse Scr eening Answer Date Recorded Physical abuse Denies 09/14/2024 Verbal abuse Denies 09/14/2024 Emotional abuse Denies 09/14/2024 Financial abuse Denies 09/14/2024 Sexual abuse Denies 09/14/2024 Comments No Sex and Gender Information Value Date Recorded Sex Assigned at Female 01/01/2025 10:17 AM EDT Legal Sex Female 1:17 PM EST Gender Identity Female 01/01/2025 10:17 AM EDT Sexual Orientation Not on file COVID-19 Exposure Response Date Recorded In the last 10 days, have yo u been in contact with someone who was confirmed or suspected to have Coronavirus/COVID-19? No / Unsure 12/08/2022 12:16 PM EDT documented as of this encounter Last Filed Vital Signs Vital Sign Reading Time Taken Comments Blood Pressure 138/75 08/31/2013 1:01 PM EST Pulse 109 08/31/2013 1:01 PM EST Temperature - - Respiratory Rate - - Oxygen Saturation 96% 08/31/2013 1:01 PM EST Inhaled Oxygen Concentration - - Weight 77.4 kg (170 lb 9 oz) 08/31/2013 1:01 PM EST Height 167.6 cm (5' 6 ) 08/31/2013 1:01 PM EST Body Mass Index 27.53 08/31/2013 1:01 PM EST documented in this encounter Functional Status documented as of this encounter Progress Notes * Zulema Avila RN - 09/03/2013 8:52 AM EST Lab faxed to dr edward with request for clearance documented in this encounter Plan of Treatment Upcoming Encounters Date Type Department Care Team (Late st Contact Info) Description 04/17/2025 2:15 PM EDT Office Visit [facility] [address] [facility] [address] [place] [phone] Meera Lopez DPM [address] [facility] [address] [place] [address] 8 weeks 05/23/2025 2:00 PM EDT Office Visit [facility] Part of [address] [phone] Nathan Ardon MD [address] [place] [address] [place] [address] 1 year follow up documented as of this encounter Procedures Procedure Name Priority Date/Time Associated Diagnosis Comments XR CHEST (2 VW) Routine 08/31/2013 1:58 PM EST CBC WITH AUTO DIFFERENTIAL Routine 08/31/2013 1:32 PM EST BASIC METABOLIC PANEL Routine 08/31/2013 1:32 PM EST documented in this encounter Results * XR Chest Standard TWO VW (08/31/2013 1:58 PM EST) Anatomical Region Laterality Modality Chest Radiographic Jayde ging 08/31/2013 1:58 PM EST Narrative 08/31/2013 4:32 PM EST FINAL Procedure: TRT Aug 31 2013 1:58PM [id number] CHEST PA AND LATERAL Reason for Exam: ^asthma preop FULL RESULT: REPORT: CHEST X-RAY: INDICATION: Asthma, preop. Two views of the chest were obtained. Both lungs are clear. The aorta and heart are within normal limits. Osseous structures are intact. There is a spinal stimulator device with electrodes noted within the midthoracic canal. IMPRESSION: NO ACTIVE DISEASE. In order to promptly notify physicians concerning their patients, this unconfirmed document is being released. It is not considered final until reviewed and signed. Electronically Signed by Nata Antony MD 08/31/2013 04:32 P TREV/janes P P CC: MD Evan Saldivar M.D. IMPRESSION: SEE ABOVE. Transcribed by: PSC on Aug 31 2013 4:32P Read by: NATA ANTONY [id number] on Aug 31 2013 3:10P Electronically Signed by: DR. NATA ANTONY on: Aug 31 2013 4:32P Procedure Note Nata Antony MD - 08/31/2013 FINAL Procedure: TRT Aug 31 2013 1:58PM [id number] CHEST PA AND LATERAL Reason for Exam: ^asthma preop FULL RESULT: REPORT: CHEST X-RAY: INDICATION: Asthma, preop. Two views of the chest were obtained. Both lungs are clear. The aorta and heart are within normal limits. Osseous structures are intact. There is a spinal stimulator device with electrodes noted within the midthoracic canal. IMPRESSION: NO ACTIVE DISEASE. In order to promptly notify physicians concerning their patients, this unconfirmed document is being released. It is not considered finaluntil reviewed and signed. Electronically Signed by Nata Antony MD 08/31/2013 04:32 P CCK/janes P P CC: MD Evan Saldivar M.D. IMPRESSION: SEE ABOVE. Transcribed by: PSC on Aug 31 2013 4:32P Read by: NATA ANTONY [id number] on Aug 31 2013 3:10P Electronically Signed by: DR. NATA ANTONY on: Aug 31 2013 4:32P Evan Everett MD [facility] DIAGNOSTIC IMAGING ORDER JEMIMA Edited Result - Final * (ABNORMAL) Basic Metabolic Panel (08/31/2013 1:32 PM EST) Glucose 315(H) 74 - 100 mg/dL 08/31/2013 5:46 PM EST [facility] BUN 14 6 - 20 mg/dL 08/31/2013 5:46 PM EST [facility] Creatinine 0.70 0.2 - 1.7 mg/dL 08/31/2013 5:46 PM EST [facility] BUN/Creatinine Ratio NOT REPORTED [facility] Calcium 9.4 8.6 - 10.3 mg/dL 08/31/2013 5:46 PM EST [facility] Sodium 135(L) 136 - 146 mmol/L 08/31/2013 5:46 PM EST [facility] Potassium 4.9 3.5 - 5.1 mmol/L 08/31/2013 5:46 PM EST [facility] Chloride 100 98 - 110 mmol/L 08/31/2013 5:46 PM EST [facility] CO2 20 20 - 31 mmol/L 08/31/2013 5:46 PM EST [facility] Anion Gap NOT REPORTED 8 - 16 mmol/L [facility] GFR Non- >60 >60 mL/min 08/31/2013 5:46 PM EST [facility] GFR >60 >60 mL/min 08/31/2013 5:46 PM EST [facility] GFR Comment 08/31/2013 5:46 PM EST [facility] Comment: Average GFR for 40-49 years old: 99 mL/min/1.73sq m Chronic Kidney Disease: <60 mL/min/1.73sq m Kidney failure: <15 mL/min/1.73sq m GFR Staging 08/31/2013 5:46 PM EST [facility] Comment: Stage 1: Some kidney damage normal GFR Stage 2: Mild kidney damage GFR 60-89 Stage 3: Moderate kidney damage GFR 30-59 Stage 4: Severe kidney damage GFR 15-29 Stage 5: Severe kidney damage GFR <15 ESRD - chronic treatment by dialysis or transplant Performed at [address] [place] [id number] BLOOD SPECIMEN / Unknown 08/31/2013 1:32 PM EST 08/31/2013 1:33 PM EST Evan Everett MD CHEMISTRY ORDERABLES Final R esult [facility] [address] [place], [place] [id number], [facility] [phone] [facility] * (ABNORMAL) CBC auto differential (08/31/2013 1:32 PM EST) WBC 12.8(H) 3.5 - 11.0 k/uL 08/31/2013 2:15 PM EST [facility] RBC 4.50 4.0 - 5.2 m/uL 08/31/2013 2:15 PM EST [facility] Hemoglobin 14.0 12.0 - 16.0 g/dL 08/31/2013 2:15 PM EST [facility] Hematocrit 40.7 36 - 46 % 08/31/2013 2:15 PM EST [facility] MCV 90.3 80 - 100 fL 08/31/2013 2:15 PM EST [facility] MCH 31.2 26 - 34 pg 08/31/2013 2:15 PM EST [facility] MCHC 34.5 31 - 37 g/dL 08/31/2013 2:15 PM EST [facility] RDW 13.3 10.0 - 14.0 % 08/31/2013 2:15 PM EST [facility] Platelets 454(H) 140 - 450 k/uL 08/31/2013 2:15 PM EST [facility] MPV NOT REPORTED 6.0 - 12.0 fL [facility] Differential Type NOT REPORTED [facility] Seg Neutrophils 57 36 - 66 % 3 2:15 PM EST [facility] Lymphocytes 31 24 - 44 % 08/31/2013 2:15 PM EST [facility] Monocytes % 6 0 - 12 % 08/31/2013 2:15 PM EST [facility] Eosinophils % 4 0 - 8 % 08/31/2013 2:15 PM EST [facility] Basophils % 2 0 - 2 % 08/31/2013 2:15 PM EST [facility] Neutrophils Absolute 7.30 1.8 - 7.7 k/uL 08/31/2013 2:15 PM EST [facility] Lymphocytes Absolute 3.90 1.0 - 4.8 k/uL 08/31/2013 2:15 PM EST [facility] Monocytes Absolute 0.80 0.0 - 1.0 k/uL 08/31/2013 2:15 PM EST [facility] Eosinophils Absolute 0.60(H) 0.0 - 0.4 k/uL 08/31/2013 2:15 PM EST [facility] Basophils Absolute 0.20 0.0 - 0.2 k/uL 08/31/2013 2:15 PM EST [facility] Comment: Performed at [address] [place] [address] WBC Morphology NOT REPORTED [facility] RBC Morphology NOT REPORTED [facility] Platelet Estimate NOT REPORTED [facility] BLOOD SPECIMEN / Unknown 08/31/2013 1:32 PM EST 08/31/2013 1:33 PM EST us Evan Everett MD HEMATOLOGY ORDERABLES Final Result [facility] [address] [phone] [facility] documented in this encounter Visit Diagnoses Not on filedocumented in this encounter Additional Health Concerns Infection Onset Date Last Indicated Resolved Time COVID-19 (Rule Out) 07/08/2020 07/08/2020 07/11/20 20 5:06 AM EDT COVID-19 (Rule Out) 09/30/2020 09/30/2020 10/01/19 21 1:25 PM EST COVID-19 (Rule Out) 11/26/2021 11/26/2021 11/28/19 22 12:02 PM EST COVID-19 (Rule Out) 04/09/2022 04/09/2022 04/10/20 22 10:37 AM EDT COVID-19 (Rule Out) 09/03/2022 09/03/2022 09/04/20 22 9:58 AM EST COVID-19 (Rule Out) 09/10/2022 09/10/2022 09/11/20 22 11:55 AM EST COVID-19 (Rule Out) 06/10/2023 06/10/2023 06/10/20 23 9:42 PM EDT COVID-19 (Rule Out) 10/14/2023 10/14/2023 10/14/19 24 6:17 PM EST documented as of this encounter Care Teams Program Consultant Relationship Specialty Start Date End Date Leola Edward MD [address] [place] [phone] PCP - General 06/16/12 01/02/18 documented as of this encounter
--- OUTSIDE RECORDS SUMMARY | 2024-01-11 10:30 | XMS_ITS ---
Author Organization [facility] Address [address] [place] [address] Care Team Providers Care Lace Machine Operator Name Role Phone Might Ryder LUNA Primary Care Provider Unavailab Eric Wick Unavailable [phone] Cristy Umaña Unavailable [phone] Allergies Allergen (clinical drug ingredient) Drug/Non Drug Allergy documented on EMR Reaction Allergy Type Onset Date Status penicillin (uncoded) hives Allergy Active Reason For Referral Reason DENIED MMOH NOT SC HED Obtain authorization for left shoulder MRI Diagnosis 1 Pain, joint, shoulde r, left (M25.512) Referral Organization [facility] Referring Provider First Name Cristy Referring Provider Last Name Leeroy Referring Provider Speciality Nurse Prac titioner Referred Organization [facility] n Radiology Procedure 1 MRI Joint Upper Ext w/o Dye ([id number]) General Notes Mi Perdomo 05/2024 09:51:12 AM > AUTH IS PENDING WITH ESMER CASE# [id number], CLINICAL UPLOADEDSherin Amy 02/06/2024 08:25:57 AM >DENIED PER ESMER. REQUIRES SIX WEEKS PROVIDER DIRECTED TREATMENT. DETAILED DENIAL IN CHART Richelle MOHAMUD Monica 02/09/2024 12:34:10 PM > LEFT VM TO NOTIFY PATIENT. NEEDS 6 WEEKS PT Referral Priority Urgent REASON FOR VISIT LEFT SHOULDER AT [facility] Medications Medication SIG (Take, Route, Fr equency, Duration) Notes Start Date End Date Status aspirin Active DULoxetine Active estradiol Active diclofenac Active rOPINIRole Active Tylenol Active traMADol Active metoprolol Active albuterol Active Lasix Active HumaLOG Active fenofibrate Active atorvastatin Active baclofen Active gabapentin Active lisinopril Active Flonase Allergy Relief Active Social History Tobacco Use: Social History Observation Description Date Details (start date - stop date) Current Smoker NA - NA AUDIT-C (Standard) Question Answer Notes Did you have a drink containing alcohol in the p ast year? No Points 0 Interpretation Negative Tobacco Control (Standard) Question Answer Notes Tobacco use: Current smoker Problems Problem Type SNOMED Code ICD Code Onset Dates Problem Status W/U Status Risk Notes Problem Pain, joint, shoulder, left (M25.512) Active confirmed Vital Signs Height 5'6 in 01/11/2024 Weight 217 lbs 01/11/2024 BMI 35.02 01/11/2024 Encounters Encounter Location Date Provider Diagnosis [facility] [address] [place] [address] [place] [id number] 01/11/2024 Cristy [place] Pain, joint, shoulde r, left M25.512 Assessments Encounter Date Diagnosis (ICD Code) Assessment Notes Treatment Notes Treatment Clinical Notes Section Notes 01/11/2024 Pain, joint, shoulder, left (ICD-10 - M25.512) 01/11/2024 Other We have discussed treatments today. I have ordered an MRI to evaluate for rotator cuff tear given traumatic fall and rotator cuff weakness. We will follow-up after to discuss results. Plan has been agreed upon by my supervising physician, [MD Aguilar. Plan Of Treatment Treatment Notes Assessment Notes Other We have discussed treatments today. I have ordered an MRI to evaluate for rotator cuff tear given traumatic fall and rotator cuff weakness. We will follow-up after to discuss results. Plan has been agreed upon by my supervising physician, [MD Aguilar. Pending Test Test Name Order Date MRI : Shoulder W/O Contrast Left - [id number] 01/11/2024 Referrals Referral Date Details 02/02/2024 02/02/2024, DENIED MMOH NOT SCHED Obtain authorization for left shoulder MRI, Next Appt Details Follow Up: After MRI, Reason : Progress Notes * VIRGIL WARNERDOB: [birth year] (49 yo F)Acc No.[id number]:01/11/2024 Patient: VIRGIL BEAR Provider: Kenneth Umaña CNP :1975 A ge:48 Y S ex:Female Date:01/11/2024 Address:[address] [place], [id number] Pcp:CHERYL Mccray Subjective: * Chief Complaints: * L EFT SHOULDER AT [facility] * HPI: G eneral Info per Patient Report: Have you seen another doctor in this practice? N o. S luis enrique affected is L eft. J oint or body part affected is s houlder. S tart of Pain/Cause of Injury f all. P ain occurred i njury. W ork related: N o. M otor vehicle accident: N o. T hird constitution party responsibility: N o. Q uality of pain is m oderate, severe. T ype of pain: d ull, aching, throbbing. D o you have any dental problems??No. Patient presents today with complaints of left shoulder pain and weakness. She sustained a fall trying to catch herself with acute onset of pain. She had x- rays at the [facility] which were negative for fracture. She is still having problems and presents today for evaluation. * ROS: C onstitutional: Fatigue Y es. G astrointestinal: Nausea/Vomiting Y es. M usculoskeletal: Joint pain Y es. J oint Swelling Y es. J oint stiffness Y es. C ardiovascular: Chest pain Y es. L eg/Ankle Swelling Y es. ? N eurological: Numbness/ Tingling Yes. W eakness/ Paralysis of Feet/Hands Yes. * Medical History: * Surgical History: R ight shoulder Spinal stimulator * Family History: N o Family History documented.. * Social History: E xercise regularly D o you exercise? N o. W hat is your place of residence? W here do you live? P rivate home. A SCARLETT-C (Standard) D id you have a drink containing alcohol in the past year? N o, P oints 0 , I nterpretation N egative. T obacco Control (Standard) T obacco use: C urrent smoker. * Medications: T akingLasix traMADol metoprolol Tylenol albuterol estradiol aspirin DULoxetine diclofenac rOPINIRole lisinopril Flonase Allergy Relief HumaLOG fenofibrate atorvastatin baclofen gabapentin Medication List reviewed and reconciled with the patientTaking Lasix Taking traMADol Taking metoprolol Taking Tylenol Taking albuterol Taking estradiol Taking aspirin Taking DULoxetine Taking diclofenac Taking rOPINIRole Taking lisinopril Taking Flonase Allergy Relief Taking HumaLOG Taking fenofibrate Taking atorvastatin Taking baclofen Taking gabapentin Medication List reviewed and reconciled with the patient * Allergies: p enicillin: hivesno[Allergies Verified] Objective: * Vitals: H t: 5'6 , Wt: 217 lbs, BMI:35.02. * Examination: G eneral examination: T he patient is a age-appropriate [], alert and oriented x3 and in no acute distress. Well-dressed and well-groomed. Stands with normal body position and in a calm mood. On examination today she has pain with shoulder range of motion and weakness with rotator cuff testing. Normal muscle tone. X-ray 3 views of the left shoulder taken at [facility] reviewed and negative for acute fracture, dislocation or subluxation no lymphadenopathy. Skin is intact throughout the extremities with no open wounds or lesions. No masses appreciated. Palpable pulses distally and brisk capillary refill. Deep tendon reflexes are intact and symmetric. Intact sensation to light touch. No deformity on inspection. specific exam: x-ray imaging studies: Assement:. Assessment: * Assessment: 1. P ain, joint, shoulder, left - M25.512 (Primary) Plan: * Treatment: 2. O thers Notes: We have discussed treatments today. I have ordered an MRI to evaluate for rotator cuff tear given traumatic fall and rotator cuff weakness. We will follow-up after to discuss results. Plan has been agreed upon by my supervising physician, []MD. * Procedure Codes: * Follow Up: A fter MRI Forms: * Images: * Sign off status: Completed true * Provider: Kenneth Umaña CNP Date: 01/11/2024 Generated for Magda baker/Angela/Andree on: 02/25/2025 07:21 AM EDT History and Physical Notes * HPI (History of Present Illness) Category Sub-Category Detail Notes Category Not es General Info per Patient Report Side affected is Left Patient presents tod ay with complaints of left shoulder pain and weakness. She sustained a fall trying to catch herself with acute onset of pain. She had x-rays at the [facility] which were negative for fracture. She is still having problems and presents today for evaluation. Joint or body part affected is shoulder Pain occurred injury Work related: No Motor vehicle accident: No Quality of pain is moderate, severe Type of pain: dull, aching, throbb ing Have you seen another doctor in this pra ctice? No Start of Pain/Cause of Injury fall Third constitution party responsibility: No Do you have any dental problems? No Examination Category Sub-Category Detail Notes Category Not es General examination The patient is a age-appropriate [], alert and oriented x3 and in no acute distress. Well-dressed and well-groomed. Stands with normal body position and in a calm mood. On examination today she has pain with shoulder range of motion and weakness with rotator cuff testing. Normal muscle tone. X-ray 3 views of the left shoulder taken at [facility] reviewed and negative for acute fracture, dislocation or subluxation no lymphadenopathy. Skin is intact throughout the extremities with no open wounds or lesions. No masses appreciated. Palpable pulses distally and brisk capillary refill. Deep tendon reflexes are intact and symmetric. Intact sensation to light touch. No deformity on inspection. specific exam: x-ray imaging studies: Assement: Consultation Request Notes Referral Date Referring Provider Referred Provider Not es 02/02/2024 Cristy Umaña , DENIED MMOH NOT SCHED Obtain authorization for left shoulder MRI
--- OUTSIDE RECORDS SUMMARY | 2024-02-28 10:56 | XMS_ITS ---
Author Organization [facility] Address [address] [place] [address] Care Team Providers Care Hide Cooking Operator Name Role Phone Might Ryder LUNA Primary Care Provider Unavailab Eric Wick Unavailable [phone] REASON FOR VISIT SHOULDER MRI Encounters Encounter Location Date Provider Diagnosis [facility] [address] [place] [address] DR [facility] [address] [place] [id number] 2024 Eric Dominique Pain, joint, shoulder, left M25.512 Assessments Encounter Date Diagnosis (ICD Code) Assessment Notes Treatment Notes Treatment Clinical Notes Section Notes 2024 Pain, joint, shoulder, left (ICD-10 - M25.512) Plan Of Treatment Pending Test Test Name Order Date PT 2024 Progress Notes * TIMMY, VIRGILDOB: 3 (48 yo F)Acc No.[id number]:2024 Patient: VIRGIL BEAR :1975 A ge:48 Y S ex:Female Address:[address] [place] [id number] Subjective: * Chief Complaints: * S HOULDER MRI * Medical History: * Surgical History: * Hospitalization/Major Diagno stic Procedure: * Medications: Objective: * Vitals: * Physical Examination: Assessment: * Assessment: 1. P ain, joint, shoulder, left - M25.512 (Primary) Plan: * Treatment: * Procedure Codes: * true * Date: Generated for Printi ng/Faxing/eTransmitting on: 0 02/25/2025 07:21 AM EDT
--- OUTSIDE RECORDS SUMMARY | 2025-02-14 15:00 | XMS_ITS | Encounter Summary ---
Author Organization [facility] 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 Patient declined 09/28/2023 Housing Stability [...] any time in the past 12 m [facility], were you homeless or living in a correction (including now)? No 01/17/2025 Food Insecurity Answer [...] AM EDT Sexual Orientation Not on file documented as of this encounter Last Filed Vital Signs Vital Sign Reading Time Taken Comments Blood Pressure - - Pulse - - Temperature - - Respiratory Rate - - Oxygen Saturation - - Inhaled Oxygen Concentration - - Weight 102.5 kg (226 lb) 02/14/2025 3:13 PM EDT Height 167.6 cm (5' 6 ) 02/14/2025 3:13 PM EDT Body Mass Index 36.48 02/14/2025 3:13 PM EDT documented in this encounter Progress Notes * Meera Lopez DPM - 02/14/2025 3:00 PM EDT Images from the original note were not included. [facility] Return Patient Chief Complaint Patient presents with Foot Injury Left foot Risa Joshi is a 49 y.o. year old female who is about 5 months post op from foot surgery. 09/14/24 She is on lyrica, cymbalta, and ultram. . She is in therapy and improving. But she was sick andhad to stop going. She is planning on returning. Has not had a chance to get diabetic shoes yet, that I ordered already . She is satisfied with her progress. Type: Procedures: Removal of external fixator, left ankle Arthrodesis of subtalar joint, left ankle Arthrodesis of multiple midfoot joints, left ankle Reduction of tarsal metatarsal fracture dislocation Application of 7.5 cc of Arthrex Allosync with PRP, left foot and ankle. Vital signs are stable. Pain level is 0-2. Patient denies N/V/F/C. Patient has been compliant with postoperative instructions. Review of Systems Vascular: DP and PT pulses palpable 2/4, Right Foot and 2/4 on the Left Foot. CFT <3 seconds, Right Foot and <3 seconds on the Left Foot. Edema is absent, Right Foot and presenton the Left Foot. But improved Neurological: Sensation absent to light touch to level of digits, both feet. Musculoskeletal: Muscle strength is 5/5 on the Right Foot and 4/5 on the Left Foot. Structural deformities are absent on the Right Foot and absent on the Left Foot. No areas of significant pain left foot. No instability, no equinus Integument: Warm, dry, supple both feet. Incisions are healing well. Wound dehiscence is absent. Infection is absent. Radiographs: Three weightbearing views (AP, Oblique, and Lateral) of the left ankle were obtained in the office today and reviewed, revealing no acute fracture, dislocation, or radioopaque foreign body/tumor. Beams through the medial and lateral columns as well as the subtalar joint. Incomplete fusion present. Satisfactory alignment. General osteopenia. Overall alignment is satisfactory. Electronically signed by Meera Lopez DPM Radiographs: Two weightbearing views (AP, Oblique,) of the left foot were obtained in the office today and reviewed, revealing no acute fracture, dislocation, or radioopaque foreign body/tumor. Overall alignment is satisfactory. Electronically signed by Meera Lopez DPM Assesment : Post operative progress gradually improving. Diagnosis Orders 1. Closed dislocation of tarsal joint of left foot, initial encounter 2. Charcot's joint of foot, left 3. 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 Tobacco abuse 5. Type 2 diabetes mellitus with diabetic polyneuropathy, with long-term current use of insulin (HCC) Plan: Pt was evaluated and examined. Patient was given personalized discharge instructions. Pt willfollow up in 4 weeks or sooner if any problems arise. Diagnosis was discussed with the pt and all of their questions were answered in detail. Proper foot hygiene and care was discussed with the pt. Patient to check feet daily and contact the office with any questions/problems/concerns. Other comorbidity noted and will be managed by PCP. All labs were reviewed and all imagining including the above findings were reviewed PRIOR to and during the patients arrival and with the patient today. Previous patient encounter was reviewed. Encounters from the patients other medical providers were reviewed and noted. Time was spent educating the patient and their families/caregivers on proper care of the feet and ankles. All the above diagnosis were addressed at todays visit and all questions were answered. Time spent with patient and patient care issues above the usual time needed for assessment and treatment was: [] 15-20 min [x] 21-30 min [] 31-44 min [] 45 min or more. This time also included charting after the patients visit Compression stocking left Continue CAM walker and slowly wean to regular shoes Knee brace Diabetic shoes and insoles: This patient would benefit from extra depth diabetic shoes and custom inserts. I feel he/she qualifies due to the above performed physical exam and diagnosis. I will do the appropriate paperwork and send it to their primary care physician. Then the patient will be measured for shoes and custom inserts to properly off load and protect his/her feet. Continue Physical therapy is being prescribed for the patient at this time. It will be used to decrease pain and swelling as well as stiffness and to try to improve range of motion, muscle strength and localized circulation to allow pain-free ambulation. Long-term goal is an attempt to restore the patient back to maximum function and restorative potential is good to guarded. The patient will be sent for therapy 2-3 times a week until goals are achieved, and we will reassess in 3 weeks to determine the success of therapy plan at that time. No orders of the defined types were placed in this encounter. Follow up 6-8 week(s). documented in this encounter Plan of Treatment Upcoming Encounters Date Type Department Care Team (Late st Contact Info) Description 04/17/2025 2:15 PM EDT Office Visit [facility] [address] [facility] [address] [place] [phone] Meera Lopez DPM [address] [facility] [address] [place] [address] 8 weeks 05/23/2025 2:00 PM EDT Office Visit [facility] Part of [address] [phone] Nathan Ardon MD [address] [place] [address], [place] [phone] 1 year follow up documented as of this encounter Visit Diagnoses Diagnosis Closed dislocation of tarsal joint of left foot, initial encounter- Primary Charcot's joint of foot, left 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
--- OUTSIDE RECORDS SUMMARY | 2025-02-25 07:21 | XMS_ITS | Patient Health Record ---
Author Organization [facility] Address [address] [place] [address] Care Team Providers Care Staff Home Therapy Rn Name Role Phone Might Ryder LUNA Primary Care Provider Scooby Wick Eric Unavailable [phone] Allergies Allergen (clinical drug ingredient) Drug/Non Drug [...] confirmed Encounters Encounter Location Date Provider Diagnosis [facility] [address] [place] [address] [address] [facility] [address] [place] [id number] 2024 Eric Dominique Pain, joint, shoulder, left M25.512 Assessments Encounter Date Diagnosis (ICD Code) Assessment Notes Treatment Notes Treatment Clinical Notes Section Notes 2024 Pain, joint, shoulder, left (ICD-10 - M25.512) Plan Of Treatment Pending Test Test Name Order Date MRI : Shoulder W/O Contrast Left - [id number] 01/11/2024 PT 2024 Insurance Providers Payer Name Payer Address Payer Phone Subscriber Number Group Number Insured Name Patient Relationship to Insured Coverage Start Date Coverage End Date [employer] [address] [address] [place] [phone] [id number] VIRGIL WARNER Self - patient is the insured Medical (General) History Medical History History ICD Code Asthma/COPD Respiratory problems: Heart problems: Diabetes GI Problems: High Blood Pressure Depression Kidney trouble Sleep apnea CPAP Machine: Yes Do you use the CPAP machine? Yes Drug Allergies Surgical History Surgery Date(Month/Year) Spinal stimulator Right shoulder
--- OUTSIDE RECORDS SUMMARY | 2025-02-25 07:21 | XMS_ITS | Clinical Summary ---
Author Organization [facility] Address [address] [place] [address] Care Team Providers Care Airline Station Agent Name Role Phone Canelo Ryderdino Combs APRN - VISITING TEACHER Primary Care Provider Allergies Active Allergy Reactions Criticality Noted Date Comments Penicillins Rash Low 11/21/2012 Medications rOPINIRole (REQUIP) 4 MG tablet TAKE 1 TABLET DAILY 90 tablet 0 016 Active Additional Information Patient taking differently: NIGHTLY, Reported on 02/14/2025 Insulin Pen Needle 30G X 8 MM MISCIndications: Diabetes mellitus type 2 with complications, uncontrolled 1 each by Does not apply route 5 times daily 150 each 5 019 Active Continuous Blood Gluc Sensor (FREESTYLE LIANG 14 DAY SENSOR) [facility] [place] Active DULoxetine (CYMBALTA) 60 MG extended release capsule Take 1 capsule by mouth nightly 021 Active diclofenac (VOLTAREN) 75 MG EC tablet take 1 tablet by mouth twice a day with food 021 Active CPAP Machine MIS by Does not apply route Active fenofibrate (TRICOR) 145 MG tablet Take 1 tablet by mouth daily 023 Active lisinopril (PRINIVIL;ZESTRI L) 10 MG tabletIndication s:History of syncope,Essentia l hypertension,Tob acco abuse,Mixed hyperlipidemia Take 1 tablet by mouth once daily 90 tablet 3 Active methocarbamol (ROBAXIN) 500 MG tablet Take 1 tablet by mouth 4 times daily Active omeprazole (PRILOSEC) 20 MG delayed release capsuleIndicatio ns:Gastroesophag eal reflux disease without esophagitis Take 1 capsule by mouth Daily 90 capsule 3 024 Active JARDIANCE 10 MG tablet Active pioglitazone (ACTOS) 30 MG tablet Active furosemide (LASIX) 20 MG tabletIndication s:History of syncope,Essentia l hypertension,Tob acco abuse,Mixed hyperlipidemia,S OB (shortness of breath),Bilatera l leg edema Take 1 tablet by mouth daily 90 tablet 3 Active albuterol sulfate HFA (PROVENTIL;KATHLEEN ERI;PROAIR) 108 (90 Base) MCG/ACT inhalerIndicatio ns:Acute bronchitis, unspecified organism INHALE 2 PUFFS BY MOUTH INTO THE LUNGS 4 TIMES DAILY NEEDED FOR WHEEZING 9 g 2 024 Active acetaminophen (TYLENOL) 500 MG tablet Take 1 tablet by mouth 3 times daily for 14 days 42 tablet 024 Active fluticasone (FLONASE) 50 MCG/ACT nasal sprayIndications :Seasonal allergic rhinitis due to pollen Use 2 spray(s) in each nostril once daily 16 g 5 025 Active levocetirizine (XYZAL) 5 MG tabletIndication s:Seasonal allergic rhinitis due to pollen Take 1 tablet by mouth in the evening 31 tablet 5 025 Active atorvastatin (LIPITOR) 80 MG tablet Take 1 tablet by mouth daily Active HUMULIN R U-500 KWIKPEN 500 UNIT/ML SOPN concentrated injection pen INJECT UP TO 500 UNITS SUBCUTANEOUSLY PER DAY. Active pregabalin (LYRICA) 50 MG capsule Take 1 capsule by mouth 3 times daily. Active aspirin 325 MG EC tablet Active Naloxone HCl (NARCAN IJ) by Nasal route Active metoprolol succinate (TOPROL XL) 25 MG extended release tablet Take 1 tablet by mouth every evening 90 tablet 3 025 Active metoprolol succinate (TOPROL XL) 50 MG extended release tabletIndication s:History of syncope,Essentia l hypertension,Tob acco abuse,Mixed hyperlipidemia,S OB (shortness of breath),Bilatera l leg edema Take 1 tablet by mouth every morning (before breakfast) 90 tablet 3 025 Active HUMALOG KWIKPEN 200 UNIT/ML SOPN pen 025 Active traMADol (ULTRAM) 50 MG tabletIndication s:Closed dislocation of tarsal joint of left foot, initial encounter,[place] t's joint of foot, left,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 Intended supply: 30 days. Take lowest dose possible to manage pain Max Daily Amount: 200 mg 120 tablet 025 2024 Active montelukast (SINGULAIR) 10 MG tabletIndication s:Seasonal allergic rhinitis due to pollen,Exacerbat ion of asthma, unspecified asthma severity, unspecified whether persistent TAKE 1 TABLET BY MOUTH AT BEDTIME 90 tablet 3 025 Active montelukast (SINGULAIR) 10 MG tabletIndication s:Seasonal allergic rhinitis due to pollen,Exacerbat ion of asthma, unspecified asthma severity, unspecified whether persistent take 1 tablet by mouth at bedtime 90 tablet 3 024 2024 Discontinued ciprofloxacin-de xAMETHasone (CIPRODEX) 0.3-0.1 % otic suspensionIndica tions:Acute diffuse otitis externa of both ears Place 4 drops into both ears 2 times daily for 10 days 7.5 mL 025 2024 traMADol (ULTRAM) 50 MG tabletIndication s:Charcot's joint of foot, left,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 Intended supply: 30 days. Take lowest dose possible to manage pain Max Daily Amount: 200 mg 120 tablet 025 2024 Discontinued(R EORDER) levoFLOXacin (LEVAQUIN) 500 MG tabletIndication s:Acute bronchitis with COPD (HCC),Bullous myringitis of right ear Take 1 tablet by mouth daily for 7 days 7 tablet 025 2024 Active Problems Problem Noted Date Diagnosed Date Multiple closed fractures of metatarsal bone of left foot 09/14/2024 Dislocation of tarsometatarsal joint of left xiang t 09/14/2024 Charcot's joint of foot, left 09/14/2024 Diabetes 09/04/2024 Multiple closed tarsal fractures, left, initial encounter 07/23/2024 Closed fracture of tarsal and metatarsal bones o f left foot 07/23/2024 Lisfranc dislocation, left, initial encounter Type 2 diabetes mellitus with Charcot joint arth ropathy 07/23/2024 Charcot joint of left foot 07/23/2024 Acquired posterior equinus, left 07/23/2024 Charcot ankle, left 07/17/2024 Closed dislocation of tarsal joint of left foot 07/17/2024 Spinal stenosis, lumbar region with neurogenic c laudication 12/26/2023 Myalgia, other site 12/08/2023 Primary osteoarthritis, left shoulder 09/15/2023 Pain in left shoulder 07/21/2023 Syncope and collapse 06/11/2023 Acute pneumonia 06/10/2023 Other muscle spasm 06/09/2023 Nevus of abdominal wall 03/24/2022 Abnormal LFTs 03/09/2021 Fatty liver 03/09/2021 Multiple joint pain 09/16/2020 Essential hypertension 12/23/2017 Dyslipidemia 12/23/2017 Tobacco abuse 12/21/2017 Perirectal abscess 12/20/2017 Idiopathic acute pancreatitis 07/06/2015 Hypertriglyceridemia 07/06/2015 SIRS without infection with organ dysfunction Renal stones 08/13/2013 Gross hematuria 07/19/2013 History of kidney stones 07/19/2013 Controlled type 2 diabetes m ellitus with diabetic polyneuropathy, with long-term current use of insulin 07/03/2013 Ureteric calculus 07/03/2013 Pain in upper limb 01/31/2013 Diabetic neuropathy 01/31/2013 Fibromyalgia 01/31/2013 Depression 01/31/2013 Generalized abdominal pain Type 2 diabetes mellitus with hyperglycemia Resolved Problems Problem Noted Date Diagnosed Date Resolved Date Post-op pain 07/23/2024 09/15/2024 Renal colic 12/27/2016 12/21/2017 Hydronephrosis 04/28/2016 12/21/2017 Renal calculi 07/19/2013 12/21/2017 Ureteric colic 07/03/2013 12/21/2017 Encounters Date Type Department Care Team Description 02/14/2025 3:00 PM EDT [facility] [address] [place] [address] Meera Lopez, DPM Closed dislocation of tarsal joint of left foot, initial encounter (Primary Dx); Charcot's joint of foot, left; 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); Tobacco abuse; Type 2 diabetes mellitus with diabetic polyneuropathy, with long-term current use of insulin (HCC) 02/11/2025 Refill [facility] [address] [place] [address] Ryder Lemos, PASTE THINNER - VISITING TEACHER Medication Refill 02/06/2025 4:20 PM EDT Office Visit [facility] [address] [place] [address] Ryder Lemos, PASTE THINNER - VISITING TEACHER Acute bronchitis with COPD (HCC) (Primary Dx); Bullous myringitis of right ear; Encounter for screening mammogram for malignant neoplasm of breast 01/30/2025 Refill [place] [id number] [facility] [address] [place] [address] Meera Lopez, DPM Medication Refill 01/28/2025 Telephone [place] [id number] [facility] [address] [place] [address] Meera Lopez, DPM Other 01/25/2025 9:49 AM EDT - 01/25/2025 11:59 PM EDT Hospital Encounter [address] [address] Discharge Disposition: Home or Self Care 01/22/2025 Orders Only [address] [address] Rolan Sim 01/21/2025 Refill [facility] [address] [facility] [address] [place] [address] Meera Lopez DPM Medication Refill 01/17/2025 4:30 PM EDT Office Visit [address] [phone] Ryder Lemos W, PASTE THINNER - VISITING TEACHER Acute diffuse otitis externa of both ears (Primary Dx); Chronic allergic rhinitis 01/17/2025 2:45 PM EDT - 01/17/2025 11:59 PM EDT Hospital Encounter [facility] Physical Therapy [address] [place] [phone] Makayla Lozoya PTA Discharge Disposition: Home or Self Care 01/10/2025 1:45 PM EDT - 01/10/2025 11:59 PM EDT Hospital Encounter [facility] Physical Therapy [address] [place] [phone] Hussein Ryan PTA Discharge Disposition: Home or Self Care 01/08/2025 2:30 PM EDT - 01/08/2025 11:59 PM EDT Hospital Encounter [facility] Physical Therapy [address] [place] [phone] Hussein Ryan PTA Discharge Disposition: Home or Self Care 01/03/2025 3:55 PM EDT Ancillary Procedure [facility] [phone] 01/03/2025 3:30 PM EDT [facility] [address] Meera Lopez DPM Charcot's joint of foot, left (Primary Dx); 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); Tobacco abuse; Type 2 diabetes mellitus with diabetic polyneuropathy, with long-term current use of insulin (HCC); Left foot pain; Closed dislocation of tarsal joint of left foot, initial encounter 01/02/2025 1:00 PM EDT - 01/02/2025 11:59 PM EDT Hospital Encounter [facility] Physical Therapy [address] [place] [phone] Phu Mora Discharge Disposition: Home or Self Care 12/31/2024 12:45 PM EDT - 12/31/2024 11:59 PM EDT Hospital Encounter [facility] Physical Therapy [address] [place] [phone] Alanna Chappell PTA Discharge Disposition: Home or Self Care 12/26/2024 1:30 PM EDT - 12/26/2024 11:59 PM EDT Hospital Encounter [facility] Physical Therapy [address] [place] [phone] Phu Mora Discharge Disposition: Home or Self Care 12/24/2024 12:45 PM EDT - 12/24/2024 11:59 PM EDT Hospital Encounter [facility] Physical Therapy [address] [place] [phone] Alanna Chappell PTA Discharge Disposition: Home or Self Care 12/19/2024 1:45 PM EDT - 12/19/2024 11:59 PM EDT Hospital Encounter [facility] Physical Therapy [address] [place] [phone] Hussein Ryan PTA Discharge Disposition: Home or Self Care 12/12/2024 1:45 PM EDT - 12/12/2024 11:59 PM EDT Hospital Encounter [facility] Physical Therapy [address] [place] [phone] Phu Mora Discharge Disposition: Home or Self Care 12/12/2024 [facility] Pod[facility] [address] [place] [phone] Meera Lopez, DPM Medication Problem 12/10/2024 1:30 PM EDT - 12/10/2024 11:59 PM EDT Hospital Encounter [facility] Physical Therapy [address] [place] [phone] Disha Escamilla PTA Discharge Disposition: Home or Self Care 12/05/2024 2:30 PM EDT - 12/05/2024 11:59 PM EDT Hospital Encounter [facility] Physical Therapy [address] [place] [phone] Makayla Lozoya PTA Discharge Disposition: Home or Self Care 12/03/2024 12:18 PM EDT - 12/03/2024 11:59 PM EDT Hospital Encounter [facility] Physical Therapy [address] [place] [phone] Makayla Lozoya PTA Discharge Disposition: Home or Self Care 11/28/2024 11:00 AM EST Office Visit [facility] [address] [place] [address] Ryder Lemos, PASTE THINNER - VISITING TEACHER Acute recurrent pansinusitis (Primary Dx); Acute diffuse otitis externa of left ear 11/28/2024 Telephone [facility] [address] [place] [address] Ryder Lemos, PASTE THINNER - VISITING TEACHER Ear drop cost 11/27/2024 12:30 PM EST - 11/27/2024 11:59 PM EST Hospital Encounter [facility] Physical Therapy [address] [place] [address] [phone] Vineet Nam, PT Discharge Disposition: Home or Self Care from Last 3 Months Immunizations Immunization Administration Dates Next Due Influenza A ([id number]) Vaccine PF IM 08/29/2009 Influenza Virus Vaccine 07/09/2015,07/04/2013 Influenza, AFLURIA (age 3 y+ ), FLUZONE, (age 6 mo+), Quadv MDV, 0.5mL 07/25/2020,07/25/2020 Influenza, FLUARIX, FLULAVAL , FLUZONE (age 6 mo+) and AFLURIA, (age 3 y+), Quadv PF, 0.5mL 06/11/2019,08/24/2018 Pneumococcal, PPSV23, PNEUMO VAX 23, (age 2y+), SC/IM, 0.5mL 05/10/2018 Zoster Recombinant (Shingrix) 03/25/2023 Family History Medical History Relation Name Comments Other Brother 1 stomach issues lactose intolerance Other Brother 2 stomach issues Allergy (Severe) Father Asthma Father COPD Father Cancer Father skin Cataracts Father Depression Father Diabetes Father Glaucoma Father Heart Disease Father vascular disea se High Blood Pressure Father High Cholesterol Father Other Father chronic bronchi tis/ gastric ulcers/gerd Depression Mother Other Mother restless legs Relation Name Status Comments Brother 1 Alive Brother 2 Alive Father Mother Alive Social History Tobacco Use Types Packs/Day Years Used Date Smoking Tobacco: Every Day Cigarettes 2 15 Smokeless Tobacco: Never Tobacco Cessation:Ready to Q uit: No; Counseling Given: Yes Alcohol Use Standard Drinks/Week Comments No 0 (1 standard drink = 0.6 oz pur e alcohol) [facility] Utilities Answer Date Recorded In the past 12 months has th e electric, gas, oil, or water company threatened [...] place to sleep or slept in a mcc (including now)? Patient declined 09/28/2023 Housing Stability [...] any time in the past 12 m [facility], were you homeless or living in a mcc (including now)? No 01/17/2025 Food Insecurity Answer [...] AM EDT Sexual Orientation Not on file Last Filed Vital Signs Vital Sign Reading Time Taken Comments Blood Pressure 112/70 02/06/2025 4:11 PM EDT Pulse 96 02/06/2025 4:11 PM EDT Temperature 36.3 C (97.4 F) 02/06/2025 4:11 PM EDT Respiratory Rate 18 02/06/2025 4:11 PM EDT Oxygen Saturation 95% 02/06/2025 4:11 PM EDT Inhaled Oxygen Concentration - - Weight 102.5 kg (226 lb) 02/14/2025 3:13 PM EDT Height 167.6 cm (5' 6 ) 02/14/2025 3:13 PM EDT Body Mass Index 36.48 02/14/2025 3:13 PM EDT Plan of Treatment Upcoming Encounters Date Type Department Care Team (Late st Contact Info) Description 04/17/2025 2:15 PM EDT Office Visit [facility] [address] [facility] [address] [place] [phone] Meera Lopez DPM [address] [facility] [address] [place] [address] 8 weeks 05/23/2025 2:00 PM EDT Office Visit [facility] CARDIOLOGY Part of [address] [phone] Nathan Ardon MD [address] [facility] [place] [address] 1 year follow up Health Maintenance Due Date Last Done Comments FIT/FOBT: Average risk 2018 Fecal-DNA (Cologuard): Average risk 2018 Sigmoidoscopy/CT colonography 2018 Lung Cancer Screening &/or Counseling 2023 Breast cancer screen 05/15/2023 05/15/2021, 03/12/20 16 Diabetic Alb to Cr ratio (uACR) test 03/23/2025 03/23/2024, 08/03/2023, 09/21/2022, Additional history exists Lipids 03/23/2025 03/23/2024, 02/25, 08/03/2023, Additional history exists Flu vaccine (Season Ended) 05/17/202507/25, 07/25/2020, 06/11/2019, Additional history exists Postponed from 04/26/2025 (Patient Refused) COVID-19 Vaccine ( season) 2025 Postponed from 05/27/2024 (Unavailable) HIV screen 06/11/2025 Postponed from 02/29/1988 (Patient Refused) Hepatitis B vaccine (1 of 3 - 19+ 3-dose series) 06/11/2025 Postponed from 02/29/1992 (Patient Refused) Shingles vaccine (2 of 2) 06/11/2025 03/25/2023 Po stponed from 05/20/2023 (Patient Refused) Diabetic foot exam 07/13/2025 07/13/2024, 0 03/28/2024, 03/18/2021, Additional history exists Diabetic retinal exam 08/09/2025 10/17/2019 , 01/02/2018, 01/02/2018 Postponed from 10/17/2020 (Patient Refused) GFR test (Diabetes, CKD 3-4, OR last GFR 15-59) 09/15/2025 09/15/2024, 09/07/2024, 07/25/2024, Additional history exists DTaP/Tdap/Td vaccine (1 - Tdap) 11/28/2025 Postponed from 02/29/1992 (Patient Refused) Pneumococcal 50+ years Vaccine (2 of 2 - PCV) 11/28/2025 05/10/2018 Postponed from 05/10/2019 (Patient Refused) Colonoscopy 12/08/2025 12/08/2022, 12/08/2022 Colorectal Cancer Screen 12/08/2025 Depression Monitoring 01/17/2026 01/17/2025, 025 A1C test (Diabetic or Prediabetic) 01/25/2026 01/25/2025, 10/11/2024, 07/24/2024, Additional history exists Cervical cancer screen Discontinued Pap smear Discontinued 06/02/2017, 02/24, 12/25/2012 Pneumococcal 0-49 years Vaccine Discontinued 05/10/2018 Hepatitis C screen Completed 03/11/2021 HPV (without or with Pap) Discontinued Hepatitis A vaccine Aged Out No longe r eligible based on patient's age to complete this topic Hib vaccine Aged Out No longer eligi ble based on patient's age to complete this topic Meningococcal (ACWY) vaccine Aged Out No longer eligible based on patient's age to complete this topic Meningococcal B vaccine Aged Out No l onger eligible based on patient's age to complete this topic Polio vaccine Aged Out No longer elig ible based on patient's age to complete this topic Medical Devices Implanted Type Area Keeler Polygraph Operator Device Identifier Shelf Expiration Date Model / Serial / Lot Graft Bone Sub 5cc Pure Allosync - [id number] Implanted:Qty: 1 on 09/14/2024 by Sreekanth Weber DPM at [facility] Bone/Gra ft/Tissu e/Human/ Synth Left: Foot [employer]-WD 04/23/2029 [id number] / / [id number] Description:[id number] Graft Bone Sub 2.5cc Allosync Pure - [id number] Implanted:Qty: 1 on 09/14/2024 by Sreekanth Weber DPM at [facility] Bone/Gra ft/Tissu e/Human/ Synth Left: Foot [employer]- 05/21/2029 [id number] / / [id number] Description:[id number] Endcap Orth S Stl Hi Compr G-Beam Fus Beaming Sys - [id number] Implanted:Qty: 1 on 09/14/2024 by Meera Lopez DPM at [facility] Leg/Ankl e/Foot/T oe Left: Foot [employer]- 07/14/2027 [id number] / / [id number] Screw Bne Fusion Sm 5.4x120 Mm Ss Strl G-Beam - [id number] Implanted:Qty: 1 on 09/14/2024 by Meera Lopez DPM at [facility] Screw/Pl ate/Nail /Jamal Left: Foot [employer]- [id number] / / [id number] Screw Bne Fusion Lg 7.4x70 Mm Ss Strl G-Beam - [id number] Implanted:Qty: 1 on 09/14/2024 by Urbano Merino DPM at [facility] Screw/Pl ate/Nail /Jamal Left: Foot [employer]- 12/26/2026 [id number] / / [id number] Screw Bne Fusion Sm 5.4x80 Mm Ss Strl G-Beam - [id number] Implanted:Qty: 1 on 09/14/2024 by Urbano Merino DPM at [facility] Screw/Pl ate/Nail /Jamal Left: Foot ORTH[employer]FIX [facility]- 12/17/2027 [id number] / / [id number] Spine: Stimulator Spine:St imulator Pin Fix Fidelia Pt 2 End 5/64x9 In Smooth Ss Strl Steinmann - [id number] Implanted:Qty: 2 on 07/23/2024 by Meera Lopez DPM at [facility] Wire Left: Foot [employer] [facility]- [id number] / / [id number] Wire Fix L6in Dia1.6mm St S Stl 3 Side Dbl Trcr Both End - [id number] Implanted:Qty: 1 on 07/23/2024 by Meera Lopez DPM at [facility] Wire Left: Foot [employer] [id number] 02/06/2029 [id number] / / [id number] Wire Fix L6in Dia1.6mm St S Stl 3 Side Dbl Trcr Both End - [id number] Implanted:Qty: 1 on 07/23/2024 at [facility] Wire Left: Foot BRASSEL[employer] [id number] 02/06/2029 [id number] / / [id number] Pin Fix Fidelia Pt 1 End In Thrd Ss Ns Steinmann - [id number] Implanted:Qty: 2 on 07/23/2024 by Meera Lopez DPM at [facility] Wire Left: Foot [employer]WD [id number] / / Screw Bne Fusion Sm 5.4x120 Mm Ss Strl G-Beam - [id number] Implanted:Qty: 1 on 09/14/2024 by Meera Lopez DPM at [facility] Left: Foot [employer]WD 12/21/2027 [id number] / / [id number] Procedures Procedure Name Priority Date/Time Associated Diagnosis Comments HEMOGLOBIN A1C Routine 01/25/2025 9:50 AM EDT XR ANKLE LEFT (MIN 3 VIEWS) Routine 01/03/2025 3:56 PM EDT Charcot's joint of foot, left 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) Tobacco abuse Type 2 diabetes mellitus with diabetic polyneuropathy, with long-term current use of insulin (HCC) Left foot pain Closed dislocation of tarsal joint of left foot, initial encounter XR FOOT LEFT (MIN 3 VIEWS) Routine 01/03/2025 3:56 PM EDT Charcot's joint of foot, left 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) Tobacco abuse Type 2 diabetes mellitus with diabetic polyneuropathy, with long-term current use of insulin (HCC) Left foot pain Closed dislocation of tarsal joint of left foot, initial encounter COMPREHENSIVE METABOLIC PANEL W/ REFLEX TO MG FOR LOW K Routine 09/15/2024 8:21 AM EST MICROALBUMIN, UR Routine 03/23/2024 3:57 PM EDT Controlled type 2 diabetes mellitus with diabetic polyneuropathy, with long-term current use of insulin (HCC) LIPID PANEL Routine 03/23/2024 3:14 PM EDT Controlled type 2 diabetes mellitus with diabetic polyneuropathy, with long-term current use of insulin (HCC) COLONOSCOPY PROCEDURE Routine 12/08/2022 12:09 PM EDT ALEJANDRO MARISOL DIGITAL SCREEN BILATERAL Routine 05/15/2021 12:38 PM EDT Other screening mammogram HEPATITIS C ANTIBODY Routine 03/11/2021 12:57 PM EDT Abnormal LFTs HM DIABETES EYE EXAM Routine 10/17/[address] TECHNOLOGIST CYTOLOGY Routine 06/02/2017 12:29 PM EDT from Last 3 Months or Most Recently Relevant to Health Maintenance Results * (ABNORMAL) Hemoglobin A1C (01/25/2025 9:50 AM EDT) Hemoglobin A1C 8.6(H) 4.0 - 6.0 % 01/25/2025 9:50 AM EDT [employer] Estimated Avg Glucose 200 mg/dL 01/25/2025 9:50 AM EDT [employer] Comment: The ADA and AACC recommend providing the estimated average glucose result to permit better patient understanding of their HBA1c result. 01/25/2025 9:50 AM EDT 01/25/2025 9:51 AM EDT us Rolan Sim CHEMISTRY ORDERABLES Final Resul t [facility] [address] [place] [address], [facility] [phone] [facility] [address] [place], [place] [id number], [facility] [phone] * XR FOOT LEFT (MIN 3 VIEWS) (01/03/2025 3:56 PM EDT) Narrative [facility] R[facility] CONSOLIDATED - 01/03/2025 3:56 PM EDT Radiology exam is complete. No Radiologist dictation. Please follow up with ordering provider. Meera [facility] DIAGNOSTIC IMAGING ORD ERABLES Final Result Performing Organization Address City/State/[facility] Co de Phone Number [facility] CONSOLIDATED * XR ANKLE LEFT (MIN 3 VIEWS) (01/03/2025 3:56 PM EDT) Narrative [facility] CONSOLIDATED - 01/03/2025 3:56 PM EDT Radiology exam is complete. No Radiologist dictation. Please follow up with ordering provider. Meera Lopez DPM [facility] DIAGNOSTIC IMAGING ORD ERABLES Final Result [facility] * (ABNORMAL) Comprehensive Metabolic Panel w/ Reflex to MG (09/15/2024 8:21 AM EST) Sodium 137 136 - 145 mmol/L 09/15/2024 8:21 AM [facility] Potassium 4.7 3.7 - 5.3 mmol/L 09/15/2024 8:21 AM [facility] Chloride 102 98 - 107 mmol/L 09/15/2024 8:21 AM [facility] CO2 23 20 - 31 mmol/L 09/15/2024 8:21 AM [facility] [facility] Anion Gap 12 9 - 16 mmol/L 09/15/2024 8:21 AM [facility] Glucose 294(H) 74 - 99 mg/dL 09/15/2024 8:21 AM [facility] BUN 28(H) 6 - 20 mg/dL 09/15/2024 8:21 AM [facility] Creatinine 1.0 0.7 - 1.2 mg/dL 09/15/2024 8:21 AM [facility] EstJarocho Filt Rate 68 >60 mL/min/1.7 3m2 09/15/2024 8:21 AM [facility] Comment: These results are not intended for [...] following therapy that affects renal tubular secretion. Calcium 9.2 8.6 - 10.4 mg/dL 09/15/2024 8:21 AM [facility] Total Protein 6.7 6.6 - 8.7 g/dL 09/15/2024 8:21 AM [facility] Albumin 4.1 3.5 - 5.2 g/dL 09/15/2024 8:21 AM [facility] Total Bilirubin <0.2 0.0 - 1.2 mg/dL 09/15/2024 8:21 AM [facility] Alkaline Phosphatase 54 35 - 104 U/L 09/15/2024 8:21 AM [facility] ALT 11 10 - 35 U/L 09/15/2024 8:21 AM [facility] AST 19 10 - 35 U/L 09/15/2024 8:21 AM [facility] Blood BLOOD SPECIMEN / Unknown 09/15/2024 8:21 AM EST 09/15/2024 8:22 AM EST us Urbano Merino DPM CHEMISTRY ORDERABLES Final Result [facility] [address] [place] [address], [facility] [phone] * Microalbumin, Ur (03/23/2024 3:57 PM EDT) Albumin Urine <12 0 - 20 mg/L 03/23/2024 3:57 PM EDT [employer] Creatinine, Ur 78.9 28.0 - 217.0 mg/dL 03/23/2024 3:57 PM EDT [employer] Microalb/Pricing Associate. Ratio Can not be calculated 0.0 - 25.0 mcg/mg creat 03/23/2024 3:57 PM EDT [employer] [facility] Urine 03/23/2024 3:57 PM EDT 03/23/2024 4:27 PM EDT us Ryder Lemos PASTE THINNER - VISITING TEACHER URINE ORDERABLES Final Result [facility] [address] [place] [address], [facility] [phone] [place] [id number] [place] [id number], [facility] [phone] * (ABNORMAL) Lipid Panel (03/23/2024 3:14 PM EDT) Cholesterol, Total 267(H) 0 - 199 mg/dL 03/23/2024 3:14 PM EDT [employer] Comment: Cholesterol Guidelines: <200 Desirable 200-240 Borderline >240 Undesirable HDL 16(L) >40 mg/dL 03/23/2024 3:14 PM EDT [employer] Comment: HDL Guidelines: <40 Undesirable 40-59 Borderline >59 Desirable LDL Cholesterol Can not be calculated 0 - 100 mg/dL 03/23/2024 3:14 PM EDT [employer] Comment: LDL Guidelines: <100 Desirable 100-129 Near to/above Desirable 130-159 Borderline >159 Undesirable Direct (measured) LDL and calculated LDL are not interchangeable tests. Chol/HDL Ratio 17.0 03/23/2024 3:14 PM EDT [employer] Triglycerides 2,042(H) <150 mg/dL 03/23/2024 3:14 PM EDT [employer] Comment: Triglyceride Guidelines: <150 Desirable 150-199 Borderline 200-499 High >499 Very high Based on AHA Guidelines for fasting triglyceride, June 2012. VLDL Can not be calculated mg/dL 03/23/2024 3:14 PM EDT [employer] Blood BLOOD SPECIMEN / Unknown 03/23/2024 3:14 PM EDT 03/23/2024 3:15 PM EDT us Ryder Combs Might PASTE THINNER - VISITING TEACHER CHEMISTRY ORDERABLES Fi nal Result [facility] [address] [place] [address], [facility] [phone] [facility] [address] [place] [address], [facility] [phone] * Colonoscopy (12/08/2022 12:09 PM EDT) Narrative Epic, User - 12/08/2022 12:09 PM EDT No dictation Tari Curtis MD ENDOSCOPY ORDERABLES Final Res ult * ALEJANDRO MARISOL DIGITAL SCREEN BILATERAL (05/15/2021 12:38 PM EDT) Anatomical Region Laterality Modality Bilateral Mammography 05/15/2021 12:4 0 PM EDT Impressions 05/15/2021 2:31 PM EDT No mammographic evidence of malignancy. BI-RADS 1 BIRADS: BIRADS - CATEGORY 1 Negative, no evidence of malignancy. Normal interval follow-up is recommended in 12 months. OVERALL ASSESSMENT - NEGATIVE A letter of notification will be sent to the patient regarding the results. The [employer] recommends annual mammograms for women 40 years and older. Narrative 05/15/2021 2:31 PM EDT EXAMINATION: SCREENING DIGITAL BILATERAL MAMMOGRAM WITH TOMOSYNTHESIS, 05/15/2021 TECHNIQUE: Screening mammography was performed with tomosynthesis including MLO and CC views of the bilateral breasts. Computer aided detection was used for the interpretation of this exam. COMPARISON: 03/12/2016 HISTORY: Screening. FINDINGS: The breast tissue is composed of scattered fibroglandular tissue. There is no suspicious mass, suspicious microcalcification, or area of architectural distortion. us Ryder Lemos PASTE THINNER - VISITING TEACHER IMG MAMMOGRAPHY ORDERAB LES Final Result * Hepatitis C Antibody (03/11/2021 12:57 PM EDT) Hepatitis C Ab NONREACTIVE NONREACTIVE 03/11/20 12:57 PM EDT [email or web address] Comment: The hepatitis C procedure used in our [...] recommended by ordering HCV RNA by PCR. BLOOD SPECIMEN / Unknown 03/11/2021 12:57 PM EDT 03/11/2021 12:58 PM EDT Claudia Willett PASTE THINNER - VISITING TEACHER IMMUNOLOGY ORDERAB LES Final Result [facility] [address] [place], [place] [address] [phone] [phone] * DIABETES EYE EXAM (10/17/2019) Historical Provider HEALTH MAINTENANCE Final Result * RADIOLOGY CT TECHNOLOGIST Cytology (06/02/2017 12:29 PM EDT) Cytology Report (NOTE) [id number] [facility] ANATOMIC PATHOLOGY [address] [place] [phone] GYNECOLOGIC CYTOLOGY REPORT Patient Name: VIRGIL JOSHI MR#: [id number] Specimen #[id number] Source: 1: Vaginal material, (ThinPrep vial, Imaging-assisted review) Clinical History Z01.419 Routine automation control integrator exam without abnormal findings Z12.4 Encounter for screening for malignant neoplasm of cervix High risk HPV DNA testing is requested if the diagnosis is abnormal LMP: 04/14/2016 INTERPRETATION Vaginal material, (ThinPrep vial, Imaging-assisted review): Specimen Adequacy: Satisfactory for evaluation. Descriptive Diagnosis: Negative for intraepithelial lesion or malignancy. Spinning Lathe Operator Hydraulic: TARSHA Arriola(ASCP) Electronically Signed Out sz/06/08/2017 06/08/2017 12:00 AM EDT [facility] 06/02/2017 12:2 9 PM EDT 06/03/2017 12:29 PM EDT Dakota Ahn MD PATHOLOGY/CYTOLOGY ORDERABLES Final Result [facility] [address] [place], [place] [address] [phone] [facility] [address] [place], [place] [address] [phone] from Last 3 Months or Most Recently Relevant to Health Maintenance Insurance [employer] [address] [id number] Advance Directives Documents on File Type Date Recorded Patient Lead Php Developer Expl anation ACP-Advance Directive 09/24/2013 3:29 PM ACP-Power of [place] Nurse 09/24/2013 3:29 PM ACP-Advance Directive 06/13/2023 12:08 PM Health Care Power of [place] Nurse * Full Code (Latest Code Status on File) Date Activated Date Inactivated Comments 09/14/2024 1:39 PM 09/15/2024 7:56 PM * Full Code Date Activated Date Inactivated Comments 09/14/2024 11:28 AM 09/14/2024 1:39 PM * Full Code Date Activated Date Inactivated Comments 07/23/2024 6:49 PM 07/26/2024 7:33 PM * Full Code Date Activated Date Inactivated Comments 06/11/2023 12:44 AM 06/14/2023 3:29 PM * Full Code Date Activated Date Inactivated Comments 12/21/2017 5:28 AM 12/23/2017 6:35 PM Healthcare Agents on File Name Relationship Healthcare Agent [facility] p Communication Yoel Joshi Spouse Primary Decision Maker Care Teams Airline Station Agent Relationship Specialty Start Date End Date Canelo, Ryder Combs, PASTE THINNER - VISITING TEACHER PCP - General Family Nurse Practitioner 05/10/18
--- OUTSIDE RECORDS SUMMARY | 2025-02-25 07:22 | XMS_ITS | Clinical Summary ---
Author Organization [facility] Address [address] [place], [place] [id number] Care Team Providers Care Computing Services Director Name Role Phone Juvenal Azevedo DPM Primary [...] 10 mg by mouth. 9 Active Insulin Converse, Disposable, (INSUPEN) 30 gauge x 02/08 ndle [...] N ot on file 09/01/2020 Data from: https://www.neighborhoodatlas.medicine.[facility].edu/. Last address used for calculation Not on [...] 06/11/2019, 08/24/2018, 07/09/2015, Additional history exists Insurance [employer] PPO Care Teams Computing Services Director Relationship Specialty Start Date End Date Juvenal Azevedo DPM PCP - General 06/17/09 Eric Darby Gastroenterology 05/21/19
--- OUTSIDE RECORDS SUMMARY | 2025-02-25 07:22 | XMS_ITS | Encounter Summary ---
Author Organization Rigoberto Savage [facility] Address [address] [place] [address] Care Team Providers Care Photo Specialist Name Role Phone Ryder Lemos CURING ROOM WORKER - POLYSOMNOGRAPHY TECHNICIAN Primary Care Provider Reason for Visit * Reason Comments Medication Refill Encounter Details Date Type Department Care Team (Late st Contact Info) Description 12/12/2020 Refill [facility] [address] [place] [address] Deats, Flip Srinivasan, CURING ROOM WORKER - POLYSOMNOGRAPHY TECHNICIAN [address] [place] [address] Medication Refill Social History Tobacco Use Types Packs/Day Years Used Date Smoking Tobacco: Every Day Cigarettes 2 15 Smokeless Tobacco: Never Alcohol Use Standard Drinks/Week Comments No 0 (1 standard drink = 0.6 oz pur e alcohol) PHQ-2 Answer Date Recorded PHQ-2 Score 0 2019 Comments No Sex and Gender Information Value Date Recorded Sex Assigned at Female 01/01/2025 10:17 AM EDT Legal Sex Female 1:17 PM EST Gender Identity Female 01/01/2025 10:17 AM EDT Sexual Orientation Not on file documented as of this encounter Plan of Treatment Upcoming Encounters Date Type Department Care Team (Late st Contact Info) Description 04/17/2025 2:15 PM EDT Office Visit [facility] Podiatry [address] [facility] [address] [place] [address] Meera Lopez DPM [address] [facility] [address] [place] [address] 8 weeks 05/23/2025 2:00 PM EDT Office Visit [facility] CARDIOLOG[facility] Part of [address] [phone] Nathan Ardon MD [address] [place] [phone] 1 year follow up documented as of this encounter Visit Diagnoses Diagnosis Seasonal allergic rhinitis due to pollen Exacerbation of asthma, unspecified asthma severity, unspecified whether persistent documented in this encounter Additional Health Concerns Infection Onset Date Last Indicated Resolved Time COVID-19 (Rule Out) 11/26/2021 11/26/2021 11/28/19 22 [...] documented as of this encounter Care Teams Photo Specialist Relationship Specialty Start Date End Date Canelo, Ryder Combs APRN - POLYSOMNOGRAPHY TECHNICIAN PCP - General Family Nurse Practitioner 05/10/18 documented as of this encounter
--- OUTSIDE RECORDS SUMMARY | 2025-02-25 07:22 | XMS_ITS | Encounter Summary ---
Author Organization Rigoberto Savage [facility] Address [address] [place] [address] Care Team Providers Care Bulb Assembler Name Role Phone Ryder Lemos APRN, CNP Primary Care Provider Reason for Visit * Reason Comments Medication Refill Encounter Details Date Type Department Care Team (Late st Contact Info) Description 03/10/2020 Refill [facility] Primary Care [place] [address] [place] [address] Ryder Lemos APRN - CNP [address] [place] [address] Medication Refill Social History Tobacco Use Types [...] Description 04/17/2025 2:15 PM EDT Office Visit [facility] Podiatry [address] [facility] [address] [place] [address] Meera Lopez DPM [address] [facility] [address] [place] [address] 8 weeks 05/23/2025 2:00 PM EDT Office Visit [facility] CARDIOLOG[facility] Part of [address] [phone] Nathan Ardon MD [address] [place] [phone] 1 year follow up documented as of this encounter Visit Diagnoses Diagnosis Diabetes mellitus type 2 with complications, uncontrolled Type II or unspecified type diabetes mellitus with unspecified complication, uncontrolled Dyslipidemia Other and unspecified hyperlipidemia documented in this encounter Additional Health Concerns [...] documented as of this encounter Care Teams Bulb Assembler Relationship Specialty Start Date End Date Ryder Lemos APRN - CHIEF FINANCIAL OFFICER PCP - General Family Nurse Practitioner 05/10/18 documented as of this encounter
--- OUTSIDE RECORDS SUMMARY | 2025-02-25 07:22 | XMS_ITS | Encounter Summary ---
Author Organization Rigoberto Savage [facility] Address [address] [place] [address] Care Team Providers Care Web Operations Lead Name Role Phone Canelo Ryder Lauryn BENÍTEZN - ALUM PLANT OPERATOR Primary Care Provider Reason for Visit * Reason Comments Medication Refill Encounter Details Date Type Department Care Team (Late st Contact Info) Description 02/19/2017 Refill [facility] [address] [place] [phone] Nathan Ardon MD [address] [place] [phone] Medication Refill Social History Tobacco Use Types Packs/Day Years Used Date Smoking Tobacco: Every Day Cigarettes Alcohol Use Standard Drinks/Week Comments No 0 [...] Description 04/17/2025 2:15 PM EDT Office Visit [facility] Podiatry [address] [place] [phone] Meera Lopez, DPZarnia [address] [address] 8 weeks 05/23/2025 2:00 PM EDT Office Visit [facility] CARDIOLOG[facility] Part of [address] [place] [address] Nathan Ardon MD [address] [place] [address] 1 year follow up documented as [...] documented as of this encounter Care Teams Web Operations Lead Relationship Specialty Start Date End Date Canelo, Ryder Combs APRN - ALUM PLANT OPERATOR PCP - General Family Nurse Practitioner 05/10/18 documented as of this encounter
--- OUTSIDE RECORDS SUMMARY | 2025-02-25 07:22 | XMS_ITS | Encounter Summary ---
Author Organization [facility] Address [address] [place], [place] [address] Care Team Providers Care Pipe Line Repairer Name Role Phone Juvenal Azevedo DPM Primary Care Provider Eric Darby Unavailable Unavailable Source Comments In the event this information is protected by the Federal Confidentiality of Alcohol and Drug AbusePatient Records regulations: The Federal rules restrict any use of the information to criminally investigate or prosecute any alcohol or drug abuse patient.[facility] Encounter Details Date Type Department Care Team (Late st Contact Info) Description 07/12/2019 Patient Msg Medical Records [address] [place], [place] [id number] Provider, [facility] Prescribed Patient Education Video(s) Social [...] on filedocumented in this encounter Care Teams Pipe Line Repairer Relationship Specialty Start Date End Date Juvenal Azevedo DPM PCP - General 06/17/09 Eric Darby Gastroenterology 05/21/19 documented as of this encounter
--- OUTSIDE RECORDS SUMMARY | 2025-02-25 07:22 | XMS_ITS | Encounter Summary ---
Author Organization Rigoberto Savage [facility] Address [address] [place] [address] Care Team Providers Care Building Insulation Installer Name Role Phone Canelo Ryder Lauryn BENÍTEZN - SUPERVISOR COREMAKER Primary Care Provider Reason for Visit * Reason Comments Medication Refill Encounter Details Date Type Department Care Team (Late st Contact Info) Description 12/01/2018 Refill [facility] C[facility] [address] [place] [phone] Nathan Ardon MD [address] [place] [phone] Medication Refill Social History Tobacco Use [...] Description 04/17/2025 2:15 PM EDT Office Visit [facility] Podiatry [address] [place] [phone] Meera Lopez, DPZarina [address] [facility] [address] [place] [address] 8 weeks 05/23/2025 2:00 PM EDT Office Visit [facility] CARDI[facility] Part of [address] [place] [address] Nathan Ardon MD [address] [place] [phone] 1 year follow up documented as of [...] documented as of this encounter Care Teams Building Insulation Installer Relationship Specialty Start Date End Date Ryder Lemos APRN - SUPERVISOR COREMAKER PCP - General Family Nurse Practitioner 05/10/18 documented as of this encounter
--- OUTSIDE RECORDS SUMMARY | 2025-02-25 07:22 | XMS_ITS | Encounter Summary ---
Author Organization Rigoberto Savage [facility] Address [address] [place] [address] Care Team Providers Care Medical Receptionist Assistant Name Role Phone Canelo Ryder Lauryn BENÍTEZN - ORGANIZATIONAL EFFECTIVENESS DIRECTOR Primary Care Provider Reason for Visit * Reason Comments Medication Refill Encounter Details Date Type Department Care Team (Late st Contact Info) Description 09/23/2017 Refill [facility] [address] [place] [phone] Nathan Ardon MD [address] [place] [phone] Medication Refill Social History Tobacco Use [...] Description 04/17/2025 2:15 PM EDT Office Visit [facility] Podiatry [address] [place] [phone] Meera Lopez, DPZarina [address] [address] 8 weeks 05/23/2025 2:00 PM EDT Office Visit [facility] CARDIOLOG[facility] Part of [address] [place] [address] Nathan Ardon MD [address] [place] [phone] 1 year follow up documented [...] documented as of this encounter Care Teams Medical Receptionist Assistant Relationship Specialty Start Date End Date Canelo, Ryder Combs APRN - ORGANIZATIONAL EFFECTIVENESS DIRECTOR PCP - General Family Nurse Practitioner 05/10/18 documented as of this encounter
--- OUTSIDE RECORDS SUMMARY | 2025-02-25 07:22 | XMS_ITS | Encounter Summary ---
Author Organization Rigoberto Sewellkrystal Savage [facility] Address [address] [place] [address] Care Team Providers Care Environmental Analyst Name Role Phone Canelo Ryderdino Combs APRN - COPIER AND PRINTER FIELD TECHNICIAN Primary Care Provider Reason for Visit * Reason Comments Medication Refill Encounter Details Date Type Department Care Team (Late st Contact Info) Description 12/24/2020 Refill [facility] C[facility] Part of [address] [phone] Nathan Ardon MD [address] [place] [phone] Medication Refill Social History Tobacco Use [...] Description 04/17/2025 2:15 PM EDT Office Visit [facility] Podiatry [address] [facility] [address] [place] [address] Meera Lopez DPM [address] [facility] [address] [place] [address] 8 weeks 05/23/2025 2:00 PM EDT Office Visit [facility] CARD[facility] Part of [address] [place] [phone] Nathan Ardon MD [address] [place] [phone] 1 year follow up documented as of this encounter Visit Diagnoses Diagnosis Dyslipidemia Other and unspecified hyperlipidemia documented in [...] documented as of this encounter Care Teams Environmental Analyst Relationship Specialty Start Date End Date Ryder Lemos APRN - COPIER AND PRINTER FIELD TECHNICIAN PCP - General Family Nurse Practitioner 05/10/18 documented as of this encounter
--- OUTSIDE RECORDS SUMMARY | 2025-02-25 07:22 | XMS_ITS | Clinical Summary ---
[facility] Address [id number] [place] [address] Care Team Providers Care Dance Costume Designer Name Role Phone Unavailable Primary Care Provider [...]
--- OUTSIDE RECORDS SUMMARY | 2025-02-25 07:22 | XMS_ITS | Encounter Summary ---
Author Organization Rigoberto Savage [facility] Address [address] [place] [address] Care Team Providers Care Coffee Attendant Name Role Phone Ryder Lemos PANTOGRAPH ENGRAVER - BRICKMASON SUPERVISOR Primary Care Provider Encounter Details Date Type Department Care Team (Latest Contact Info) Description 01/19/2021 Transcribe Orders [place] [facility] [address] [place] [address] Corey Cleveland MD [address] [place] [phone] DDD (degenerative disc disease), lumbar (Primary Dx) Social History Tobacco Use Types Packs/Day Years [...] Description 04/17/2025 2:15 PM EDT Office Visit [facility] Podiatry [address] [facility] [address] [place] [address] Meera Lopez DPM [address] [place] [address] [place] [address] 8 weeks 05/23/2025 2:00 PM EDT Office Visit [facility] Part of [address] [place] [address] Nathan Ardon MD [address] [place] [phone] 1 year follow up documented as of this encounter Visit Diagnoses Diagnosis DDD (degenerative disc disease), lumbar- Primary Degeneration of lumbar or lumbosacral intervertebral disc documented in this encounter Additional Health Concerns [...] documented as of this encounter Care Teams Coffee Attendant Relationship Specialty Start Date End Date Canelo, Ryder Combs APRN - BRICKMASON SUPERVISOR PCP - General Family Nurse Practitioner 05/10/18 documented as of this encounter
--- OUTSIDE RECORDS SUMMARY | 2025-02-25 07:22 | XMS_ITS | Encounter Summary ---
Author Organization [facility] Address [address] [place] [address] Care Team Providers Care Outside Energy Sales Representatives Name Role Phone Canelo Ryderdino Combs APRN - FRONT WORKER Primary Care Provider Reason for Referral * Imaging (Routine) - Closed Specialty Diagnoses / Procedures Referred By Fernandez t Referred To Contact Radiology Diagnoses Thoracic neuritis M54.14 (ICD-10-CM) - Thoracic neuritis Procedures MRI THORACIC SPINE WO CONTRAST CHG MRI SPINAL CANAL THORACIC W/O CONTRAST MATRL [id number] - CHG MRI SPINAL CANAL THORACIC W/O CONTRAST MATRL Terry Brady MD [address] [address] Phone: tel: fax: Referral ID Status Reason Start Date Expiration Date Visits Re quested Visits Authorized [id number] Closed 12/01/2022 01/15/2023 1 1 Encounter Details Date Type Department Care Team (Latest Contact Info) Description 12/14/2022 Transcribe Orders [place] Pre Access [address] [phone] Terry Brady MD [address] [place] [address] Thoracic neuritis (Primary Dx) Social History Tobacco Use Types Packs/Day Years Used Date Smoking Tobacco: Every Day Cigarettes 2 15 Smokeless Tobacco: Never Alcohol Use Standard Drinks/Week Comments No 0 (1 standard drink = 0.6 oz pur e alcohol) Overall Financial Resource Strain (CARDIA) Answe r Date Recorded How hard is it for you to pa y for the very basics like food, housing, medical care, and heating? Patient declined 03/24/2022 PHQ-2 Answer Date Recorded PHQ-9 Total Score 0 09/23/2022 Hunger Vital Sign Answer Date Recorded Within the past 12 months, y ou worried that your food would run out before you got the money to buy more. Patient declined Within the past 12 months, t he food you bought just didn't last and you didn't have money to get more. Patient declined Comments No Sex and Gender Information Value [...] PM EDT documented as of this encounter Plan of Treatment Upcoming Encounters Date Type Department Care Team (Late st Contact Info) Description 04/17/2025 2:15 PM EDT Office Visit [facility] Podiatry [address] [place] [phone] Meera Lopez DPM [address] [place] [address] 8 weeks 05/23/2025 2:00 PM EDT Office Visit [facility] CARDIOLOGY Part of [address] [phone] Nathan Ardon MD [address] [place] [address] [place] [address] 1 year follow up documented as of this encounter Results * MRI THORACIC SPINE WO CONTRAST (12/28/2022 2:22 PM EDT) Anatomical Region Laterality Modality C-spine, T-spine, L-spine, Chest Magnetic Resonance 12/28/2022 2:28 PM EDT Impressions 12/28/2022 5:11 PM EDT No acute abnormality in the thoracic spine. No significant spinal canal or neural foraminal narrowing. Narrative 12/28/2022 5:11 PM EDT EXAMINATION: MRI OF THE THORACIC SPINE WITHOUT [...] neural foraminal narrowing of the thoracic spine. Procedure Note Shabbir Weaver DO - 12/28/2022 EXAMINATION: MRI OF THE THORACIC SPINE WITHOUT CONTRAST 12/28/2022 2:19 pm TECHNIQUE: Multiplanar multisequence MRI of the thoracic spine was performed withoutthe administration of intravenous contrast. COMPARISON: Thoracic spine radiographs done October 12, 2017. HISTORY: ORDERING SYSTEM PROVIDED HISTORY: Thoracic neuritis FINDINGS: BONES/ALIGNMENT: There is normal alignment of the spine. The vertebralbody heights are maintained. The bone marrow signal appears unremarkable. SPINAL CORD: No abnormal cord signal is seen. SOFT TISSUES: No paraspinal mass identified. DEGENERATIVE CHANGES: No significant spinal canal stenosis or neural foraminal narrowing of the thoracic spine. IMPRESSION: No acute abnormality in the thoracic spine. No significant spinal canalor neural foraminal narrowing. Terry Brady MD IMG MRI ORDERABLES Fi nal Result documented in this encounter Visit Diagnoses Diagnosis Thoracic neuritis- Primary Thoracic or lumbosacral neuritis or radiculitis, unspecified Thoracic neuritis Thoracic or lumbosacral neuritis or radiculitis, unspecified documented in this encounter Additional Health Concerns Infection Onset Date Last Indicated Resolved Time COVID-19 (Rule Out) 06/10/2023 06/10/2023 06/10/20 23 9:42 PM EDT COVID-19 (Rule Out) 10/14/2023 10/14/2023 10/14/19 24 6:17 PM EST documented as of this encounter Care Teams Outside Energy Sales Representatives Relationship Specialty Start Date End Date Canelo, Ryder Combs APRN - FRONT WORKER PCP - General Family Nurse Practitioner 05/10/18 documented as of this encounter
--- OUTSIDE RECORDS SUMMARY | 2025-02-25 07:22 | XMS_ITS | Encounter Summary ---
Author Organization [facility] Address [address] [place] [address] Care Team Providers Care Literacy Coordinator Name Role Phone Ryder Lemos APRN, CNP Primary Care Provider Reason for Referral * Imaging (Routine) - Closed Specialty Diagnoses / Procedures Referred By Fernandez lau Referred To Contact Radiology Diagnoses Lumbar radiculitis Procedures MRI LUMBAR SPINE WO CONTRAST Keily Clements APRN - NP [address] [place] [address] Phone: tel: fax: Referral ID Status Reason Start Date Expiration Date Visits Re quested Visits Authorized [id number] Closed 10/25/2022 12/09/2022 1 1 Encounter Details Date Type Department Care Team (Latest Contact Info) Description 11/02/2022 Transcribe Orders [place] Pre Access [address] [phone] Keily Clements APRN - NP [id number] [place] [address] Lumbar radiculitis (Primary Dx) Social History Tobacco Use Types [...] Description 04/17/2025 2:15 PM EDT Office Visit [facility] Podiatry [address] [place] [phone] Meera Lopez, DPZarina [address] [place] [address] 8 weeks 05/23/2025 2:00 PM EDT Office Visit [facility] CARDIOLOGY Part of [address] [phone] Nathan Ardon MD [address] [place] [phone] 1 year follow up documented as of this encounter Results * MRI LUMBAR SPINE WO CONTRAST (11/17/2022 1:59 PM EST) Anatomical Region Laterality Modality T-spine, L-spine, Pelvis Magneti c Resonance 11/17/2022 2:15 PM EST Impressions 11/17/2022 2:23 PM EST Mild degenerative change without canal stenosis or foraminal narrowing. RECOMMENDATIONS: Unavailable Narrative 11/17/2022 2:23 PM EST EXAMINATION: MRI OF THE LUMBAR SPINE WITHOUT [...] is no canal stenosis or foraminal narrowing. Procedure Note Ranulfo Olivo MD - 11/17/2022 EXAMINATION: MRI OF THE LUMBAR SPINE WITHOUT CONTRAST, 11/17/2022 1:48 pm TECHNIQUE: Multiplanar multisequence MRI of the lumbar spine was performed withoutthe administration of intravenous contrast. COMPARISON: Lumbar spine myelogram performed 01/20/2021. HISTORY: ORDERING SYSTEM PROVIDED HISTORY: Lumbar radiculitis FINDINGS: BONES/ALIGNMENT: The vertebral body heights are maintained. There is age-appropriate bone marrow signal. The disc spaces are maintained.There is no disc space narrowing. There is no spondylolisthesis. SPINAL CORD: The conus is normal in caliber and signal and terminates atL1. The cauda equina is unremarkable. SOFT TISSUES: [...] circumferential disc bulge. There is no canal stenosisor foraminal narrowing. L4-L5: There is a circumferential disc bulge. There is no canal stenosisor foraminal narrowing. L5-S1: There is a circumferential disc bulge. There is no canal stenosisor foraminal narrowing. IMPRESSION: Mild degenerative change without canal stenosis or foraminal narrowing. RECOMMENDATIONS: Unavailable us Keily Clements HOUSING COORDINATOR - CLINICAL CARE COORDINATOR IMG MRI ORDERABLES Final Result documented in this encounter Visit Diagnoses Diagnosis Lumbar radiculitis- Primary Thoracic or lumbosacral neuritis or radiculitis, unspecified Lumbar radiculitis Thoracic or lumbosacral neuritis or radiculitis, unspecified documented in this encounter Additional Health Concerns Infection Onset Date Last Indicated Resolved Time COVID-19 (Rule Out) 06/10/2023 06/10/2023 06/10/20 23 9:42 PM EDT COVID-19 (Rule Out) 10/14/2023 10/14/2023 10/14/19 24 6:17 PM EST documented as of this encounter Care Teams Literacy Coordinator Relationship Specialty Start Date End Date Ryder Lemos APRN - [place] PCP - General Family Nurse Practitioner 05/10/18 documented as of this encounter
--- OUTSIDE RECORDS SUMMARY | 2025-02-25 07:22 | XMS_ITS | Encounter Summary ---
Author [facility] Address [address] [place] [address] Care Team Providers Care Nascar Driver Name Role Phone CaneloRyder Lauryn TENT ASSEMBLER - POLYSTYRENE MOLDING MACHINE TENDER Primary Care Provider Encounter Details Date Type Department Care Team (Late st Contact Info) Description 12/20/2017 Direct Admit Orders [facility] [address] [place] [address] Shelley Deluca APRN - [place] [address] [place] [address] Social History Tobacco Use Types Packs/Day Years Used Date Smoking Tobacco: Every Day Cigarettes Smokeless Tobacco: Never Alcohol Use Standard Drinks/Week [...] 04/17/2025 2:15 PM EDT Office Visit [facility] Podiatry [facility] [address] [phone] Meera Lopez, PRANAV [address] [facility] [place] [address] 8 weeks 05/23/2025 2:00 PM EDT Office Visit [facility] CARDIOLOGY Part of [address] [place] [address] Nathan Ardon MD [address] [place] [phone] 1 year follow up documented as [...] documented as of this encounter Care Teams Nascar Driver Relationship Specialty Start Date End Date Ryder Lemos APRN - POLYSTYRENE MOLDING MACHINE TENDER PCP - General Family Nurse Practitioner 05/10/18 documented as of this encounter
--- OUTSIDE RECORDS SUMMARY | 2025-02-25 07:22 | XMS_ITS | Encounter Summary ---
Author Organization [facility] Address [address] [place] [address] Care Team Providers Care Shank Stapler Name Role Phone Ryder Lemos APRN, CNP Primary Care Provider Reason for Visit * Reason Comments Medication Refill Encounter Details Date Type Department Care Team (Late st Contact Info) Description 02/11/2025 Refill [facility] Care [place] [address] [place] [address] Ryder Lemos APRN - CNP [address] [place] [address] Medication Refill Social History Tobacco Use Types Packs/Day Years Used Date Smoking Tobacco: Every Day Cigarettes 2 15 Smokeless Tobacco: Never Alcohol Use Standard Drinks/Week Comments No 0 (1 standard drink = 0.6 oz pur e alcohol) [facility] Utilities Answer Date Recorded In the past 12 months has [employer], gas, oil, or water company threatened to [...] place to sleep or slept in a residential (including now)? Patient declined 09/28/2023 Housing Stability [...] were you homeless or living in a residential (including now)? No 01/17/2025 Food Insecurity Answer [...] 04/17/2025 2:15 PM EDT Office Visit [facility] Podiatry [address] [place] [address] Meera Lopez DPM [address] [place] [address] 8 weeks 05/23/2025 2:00 PM EDT Office Visit [facility] CARDIOLOGY Part of [address] [phone] Nathan Ardon MD [address] [place] [phone] 1 year follow up documented as of this encounter Visit Diagnoses Diagnosis Seasonal allergic rhinitis due to pollen Exacerbation of asthma, unspecified asthma severity, unspecified whether persistent documented in this encounter Care Teams Shank Stapler Relationship Specialty Start Date End Date Canelo, Ryder Combs APRN - AUTOMATED CUTTING MACHINE OPERATOR PCP - General Family Nurse Practitioner 05/10/18 documented as of this encounter
--- OUTSIDE RECORDS SUMMARY | 2025-02-25 07:23 | XMS_ITS | CCD ---
Author Organization [facility] Care Team Providers Care Patient Services Representative Name Role Phone Might, Vivian Combs Primary Care Provider MIGHT, VIVIAN W Primary Care Unavailable CLAUDIA WILLETT Referring Unavailable Might AUTOMOTIVE PROFESSIONAL - WEB SIZER, Vivian W Primary Care Provider Might AUTOMOTIVE PROFESSIONAL - WEB SIZER, Vivian W Primary Care Provider Might AUTOMOTIVE PROFESSIONAL - WEB SIZER, Vivian W Primary Care Provider Might AUTOMOTIVE PROFESSIONAL - WEB SIZER, Vivian W Primary Care Provider Might AUTOMOTIVE PROFESSIONAL - WEB SIZER, Vivian W Primary Care Provider Might AUTOMOTIVE PROFESSIONAL - WEB SIZER, Vivian W Primary Care Provider NON STAFF [...] vailable MISC, DR GAFFNEY Primary Care Unavailable [place], DR PHILLIP Reilly Consulting Unavailable LAKSHMIPATHY ., [...] ., DR COREY Bautista Consulting Unavailable VERN TOHRPE Consulting Unavailable Might AUTOMOTIVE PROFESSIONAL - WEB SIZER, Vivian Combs Primary Care Provider Might AUTOMOTIVE PROFESSIONAL - Vivian SU Primary Care Provider VIVIAN OSEGUERA Primary Care Unavailable MEENA MIKEASE A Referring Unavailable [facility] VIVIAN Primary Care Unavailable RAMIRO, RICKY Consulting Unavailable MIKE, KHASE A Attending Unavailable MIKE, KHASE A Admitting Unavailable RASHID, KHASE A Admitting Unavailable VIVIAN OSEGUERA Primary Care Unavailable RAMIRO, RICKY Consulting Unavailable MIKE, KHASE A Attending Unavailable RASHID, KHASE A Admitting Unavailable VIVIAN OSEGUERA Primary Care Unavailable ROSEANN MACIAS Referring Unavailable MIKE, KHASE A Attending Unavailable Chiquis AUTOMOTIVE PROFESSIONAL-Rolan SU Attending Unavailab le Might AUTOMOTIVE PROFESSIONAL-[facility] Un available Might AUTOMOTIVE PROFESSIONAL-WEB SIZER, [facility] Un available Chiquis AUTOMOTIVE PROFESSIONAL-Rolan SU Attending Unavailab le Might AUTOMOTIVE PROFESSIONAL-WEB SIZER, [facility] Un available Chiquis AUTOMOTIVE PROFESSIONAL-WEB SIZER, Rolan Grier Attending Unavailab le Might AUTOMOTIVE PROFESSIONAL-[facility], [facility] Un available Chiquis AUTOMOTIVE PROFESSIONAL-WEB SIZER, Rolan Grier Attending Unavailab le Might AUTOMOTIVE PROFESSIONAL-[facility], [facility] Un available [place] AUTOMOTIVE PROFESSIONAL-WEB SIZER, Rolan Grier Attending Unavailab le Might AUTOMOTIVE PROFESSIONAL-[facility], [facility] Un available Jez MULLEN, Andrius Vytautas Attending [...] (antibiotic) (10 sources) Penicillins Drug Allergy [facility] (20 sources) Penicillins Propensity to adverse reactions to drug 3 [place], [place] (20 sources) Penicillins Propensity to adverse reactions to drug 3 [facility] (1 source) Penicillins Drug allergy (disorder) 2 [facility] (2 sources) penicillAMINE Drug Allergy Unknown ZOZI Other (1 source) Penicillins Drug allergy (disorder) 6 [facility] Rep[facility] (1 source) Penicillin; Translations: [penicillin] Drug Allergy [facility] Repository Medications Current Medications Medication Drug Class(es) [...] (PERCOCET) 5-325 MG per tablet 1 tablet [id number] 200 actuat albuter ol 0.09 mg/actuat metered [...] Start: 09-16-2020 take 1 capsule by mo [facility] twice daily celecoxib (CELEBREX) 100 MG capsule Indications: Multiple joint pain Take 1 capsule by mouth 2 times daily 180 capsule 1 09/16/2020 Active cholecalciferol 0.025 mg oral tablet (1 source) Vitamin D Start: 09-14-2024 End: 09-21-2024 5,000 Units, Oral, DAILY, 7 doses, First dose on Tue09/14/24 at 1400, Last dose on Tue09/20/24 at 0900, Labeling may look different. 25 ygm=2788 Units. Please double check dosages. ciprofloxacin 3 [...] Gluc Sensor (FREESTYLE KENA 14 DAY SENSOR) [facility] apply 1 SENSOR TO THE BACK OF [...] Start: 07-02-2020 take 1 capsule by mo [facility] once daily in the evening DULoxetine (CYMBALTA) [...] Active Start: 04-23-2019 take 1 capsule by [facility] once daily FLUoxetine (PROZAC) 40 MG [...] Start: 09-10-2019 take 2 tablets by mo [facility] once daily glipiZIDE (GLUCOTROL XL) 10 MG [...] for injection by adding 1 mL of fisher trap-supplied sterile diluent or sterile water for injection [...] / neomycin 3.5 mg/ml / polymyxin b 60003 unt/ml otic solution (3 sources) Aminoglycoside Antibacterial, Polymyxin-class Antibacterial, Corticosteroid Start: 11-28-2024 End: 12-08-2024 neomycin-polymyxi n-hydrocortisone (CORTISPORIN) 3.5-39584-[address] 4 drops into the [...] Med ical Marijuana Card 0 Active nystatin 257069 unt/ml oral suspension (1 source) Polyene Antifungal Start: 09-23-20 End: 10-03-19 take 5 mL by mouth four times daily nystatin (MYCOSTATIN) 568361 UNIT/ML suspension Indications: Oral candidiasis Take 5 [...] 20 mg/ml oral suspension (1 source) Uncompetitive X-etetei-S-aspart ate Receptor Antagonist, Sigma-1 Agonist Start: 06-11-2023 [...] source) Provitamin D2 Compound Start: 07-25-2024 take 93926 [IU] by mouth every week 50,000 Units, [...] MG tablet 06/12/2024 Active polyethylene glycol 3350 15799 mg powder for oral solution (3 sources) [...] 30 millicurie technetium sulfur colloid eg g ([facility]) solution 1 millicurie (2 sources) Start: 08-22-2019 End: 08-22-2019 technetium sulfur colloid eg g (NHCOMED-SC) solution 1 millicurie Start: 08-16-2019 End: 08-16-2019 [...] classified; Translations: [OTH SPEC D/O INVOLV IMMUNE [facility] NEC] Onset: 05-02-2022 Chronic Malaise and [...] 04-06-2022 06-11-2024 Chronic Other aftercare (3 sources) long term care social worker (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 HbA1c (Bld) [Mass fraction] 8.6 % High 4.0 - 6.0 % [facility] Interpretation and review of laboratory results Abnormal [facility] Glucose [Mass/Vol] 200 mg/dL Normal [facility] Comment on above: Result Comment: The ADA and AACC recommend providing the estimated average glucose result to permit better patient understanding of their HBA1c result. Performed By: #### G LYHGB #### [facility] [address] [place] [address] [employer] Operator: Melvin Santoyo MD HbA1c (Bld) [Mass fraction] 8.6 % High 4.0-6.0 [facility] Comment on above: Performed By: #### G LYHGB #### [facility] [address] [place] [address] [employer] Operator: Melvin Santoyo MD Hemoglobin A1Con 10-12-2024 Glucose [Mass/Vol] 177 mg/dL Normal [facility] Comment on above: Result Comment: The ADA and AACC recommend providing the estimated average glucose result to permit better patient understanding of their HBA1c result. Performed By: #### G LYHGB #### [facility] [address] [place] [address] [employer] Operator: Melvin Santoyo MD #### TSHX #### [facility] [address] [place] [address] [employer] Operator: Phillip Camarena MD HbA1c (Bld) [Mass fraction] 7.8 % High 4.0-6.0 [facility] Comment on above: Performed By: #### G LYHGB #### [facility] [address] [place], [place] [id number] [employer] Operator: Melvin Santoyo MD #### TSHX #### [facility] [address] [place] [address] [employer] Operator: Phillip Camarena MD CBC with Auto Differentialon 09-15-2024 Basophils (Bld) [#/Vol] 0.10 10*3/uL [facility] Basophils/100 WBC (Bld) 1 % 0 - 2 % B on [facility] Eosinophils (Bld) [#/Vol] 0.00 10*3/uL [facility] Eosinophils/100 WBC (Bld) 0 % 0 - 4 % [facility] Erythrocyte distribution width (RBC) [Ratio] 14.4 % 11.5 - 14.9 % [facility] Hematocrit (Bld) [Volume fraction] 27.8 % Low 36 - 46 % [facility] Hemoglobin (Bld) [Mass/Vol] 9.3 g/dL Low 12.0 - 16.0 g/dL [facility] Interpretation and review of laboratory results Abnormal Bon [facility] Lymphocytes/100 WBC (Bld) 24 % 24 - 44 % [facility] Lymphocytes/100 WBC (Bld) 2.60 % [facility] MCH (RBC) [Entitic mass] 31.2 pg 26 - 34 pg [facility] MCHC (RBC) [Mass/Vol] 33.3 g/dL 31 - 37 g/dL B on [facility] MCV (RBC) [Entitic vol] 93.6 fL 80 - 100 fL [facility] Monocytes/100 WBC (Bld) 9 % High 1 - 7 % [facility] Mon[facility] WBC (Bld) 1.00 % B on [facility] Neutrophils/100 WBC (Bld) 66 % 36 - 66 % [facility] Platelet mean volume (Bld) [Entitic vol] 7.1 fL 6.0 - 12.0 fL [facility] Platelets (Bld) [#/Vol] 366 10*3/uL [facility] RBC (Bld) [#/Vol] 2.97 10*6/uL Low 4.0 - 5.2 m/uL [facility] Segmented neutrophils/100 WBC (Bld) 7.40 % [facility] WBC other (Bld) [#/Vol] 11.[address] [facility] CBC with Diffon 09-15-2024 Abs. Basophil 0.10 k/uL Normal 0.0-0.2 [facility] Comment on above: Performed By: #### C DP, CMPX #### [facility] [address] [place] [address] [employer] Operator: Ed Mcduffie DO Abs.Neutrophil (Seg) 7.40 k/uL Normal 1.3-9.1 [facility] Comment on above: Performed By: #### C DP, CMPX #### [facility] [address] [place] [address] [employer] Operator: Ed Mcduffie DO Basophils/100 WBC (Bld) 1 % Normal 0-2 [facility] Comment on above: Performed By: #### C DP, CMPX #### [facility] [place] [address] [employer] Operator: Ed Mcduffie DO Eosinophils (Bld) [#/Vol] 0.00 10*3/uL Normal 0.0-0.4 [facility] Comment on above: Performed By: #### C DP, CMPX #### [facility] [address] [place] [address] [employer] Operator: Ed Mcduffie DO Eosinophils/100 WBC (Bld) 0 % Normal 0-4 [facility] Comment on above: Performed By: #### C DP, CMPX #### [facility] [place] [address] [employer] Operator: Ed Mcduffie DO Erythrocyte distribution width (RBC) [Ratio] 14.4 % Normal 11.5-14.9 [facility] Comment on above: Performed By: #### C DP, CMPX #### [facility] [address] [place] [address] [employer] Operator: Ed Mcduffie DO Hematocrit (Bld) [Volume fraction] 27.8 % Low 36-46 [facility] Comment on above: Performed By: #### C DP, CMPX #### [facility] [address] [place] [address] [employer] Operator: Ed Mcduffie DO Hemoglobin (Bld) [Mass/Vol] 9.3 g/dL Low 12.0-16.0 [facility] Comment on above: Performed By: #### C DP, CMPX #### [facility] [address] [place] [address] [employer] Operator: Ed Mcduffie DO Lymphocytes (Bld) [#/Vol] 2.60 10*3/uL Normal 1.0-4.8 [facility] Comment on above: Performed By: #### C DP, CMPX #### [facility] [address] [place] [address] [employer] Operator: Ed Mcduffie DO Lymphocytes/100 WBC (Bld) 24 % Normal 24-44 [facility] Comment on above: Performed By: #### C DP, CMPX #### [facility] [address] [place] [address] [employer] Operator: Ed Mcduffie DO MCH (RBC) [Entitic mass] 31.2 pg Normal 26-34 [facility] Comment on above: Performed By: #### C DP, CMPX #### [facility] [place] [address] [employer] Operator: Ed Mcduffie DO MCHC (RBC) [Mass/Vol] 33.3 g/dL Normal 31-37 [facility] Comment on above: Performed By: #### C DP, CMPX #### [facility] [address] [place] [address] [employer] Operator: Ed Mcduffie DO MCV (RBC) [Entitic vol] 93.6 fL Normal 80-100 [facility] Comment on above: Performed By: #### C DP, CMPX #### [facility] [address] [place] [address] [employer] Operator: dE Mcduffie DO Monocytes (Bld) [#/Vol] 1.00 10*3/uL Normal 0.1-1.3 [facility] Comment on above: Performed By: #### C DP, CMPX #### [facility] [address] [place] [address] [employer] Operator: Ed Mcduffie DO Monocytes/100 WBC (Bld) 9 % High 1-7 [facility] Comment on above: Performed By: #### C DP, CMPX #### [facility] [address] [place] [address] [employer] Operator: Ed Mcduffie DO Neutrophil (Seg) 66 % Normal 36-66 [facility] Comment on above: Performed By: #### C DP, CMPX #### [facility] [address] [place] [address] [employer] Operator: Ed Mcduffie DO Platelet mean volume (Bld) [Entitic vol] 7.1 fL Normal 6.0-12.0 [facility] Comment on above: Performed By: #### C DP, CMPX #### [facility] [address] [facility] [place] [address] [employer] Operator: Ed Mcduffie DO Platelets (Bld) [#/Vol] 366 10*3/uL Normal 150-450 [facility] Comment on above: Performed By: #### C DP, CMPX #### [facility] [address] [place] [address] [employer] Operator: Ed Mcduffie DO RBC (Bld) [#/Vol] 2.97 10*6/uL Low 4.0-5.2 [facility] Comment on above: Performed By: #### C DP, CMPX #### [facility] [address] [place] [address] [employer] Operator: Ed Mcduffie DO WBC (Bld) [#/Vol] 11.2 10*3/uL High 3.5-11.0 [facility] Comment on above: Performed By: #### C DP, CMPX #### [facility] [address] [place] [address] [employer] Operator: Ed Mcduffie DO Comp Metabolic Pr/rfx MGon 1 11-16-2023 Albumin [Mass/Vol] 4.1 g/dL Normal 3.5-5.2 [facility] Comment on above: Performed By: #### C DP, CMPX ####[facility] [id number] [place] [address] Lab Director: Ed Mcduffie DO Alkaline Phos 54 U/L Normal 35-104 [facility] Comment on above: Performed By: #### C DP, CMPX ####[facility] [address] [place] [address] Lab Director: Fanelly, Ed, DO ALT [Catalytic activity/Vol] 11 U/L Normal 10-35 [facility] Comment on above: Performed By: #### C DP, CMPX ####[facility] [address] [place] [address] Lab Director: Ed Mcduffie DO Anion gap [Moles/Vol] 12 mmol/L Normal 9-16 [facility] Comment on above: Performed By: #### C DP, CMPX ####[facility] [id number] [place] [address] Lab Director: Ed Mcduffie DO AST [Catalytic activity/Vol] 19 U/L Normal 10-35 [facility] Comment on above: Performed By: #### C DP, CMPX ####[facility] [id number] [place] [address] Lab Director: Ed Mcduffie DO Bilirubin [Mass/Vol] mg/dL Normal 0.0-1.2 [facility] Comment on above: Performed By: #### C JUDI, CMPX ####[facility] [address] [place] [address] Lab Director: Ed Mcduffie DO Calcium [Mass/Vol] 9.2 mg/dL Normal 8.6-10.4 [facility] Comment on above: Performed By: #### C JUDI, CMPX ####[facility] [address] [place] [address] Lab Director: Ed Mcduffie DO Chloride [Moles/Vol] 102 mmol/L Normal 98-107 [facility] Comment on above: Performed By: #### C DP, CMPX ####[facility] [address] [facility] [place] [address] Lab Director: Ed Mcduffie DO CO2 [Moles/Vol] 23 mmol/L Normal 20-31 [facility] Comment on above: Performed By: #### C DP, CMPX ####[facility] [id number] [facility] [place] [address] Lab Director: Ed Mcduffie DO Creatinine [Mass/Vol] 1.0 mg/dL Normal 0.7-1.2 [facility] Comment on above: Performed By: #### C DP, CMPX ####[facility] [id number] [facility] [place] [address] Lab Director: Ed Mcduffie DO GFR/1.73 sq M.predicted among non-blacks MDRD (S/P/Bld) [Vol rate/Area] 68 mL/min/{1.73_m2} Normal >60 [facility] Comment on above: Result Comment: These [...] secretion. Performed By: #### C DP, CMPX ####[facility] [id number] [facility] [place] [address] Lab Director: Ed Mcduffie DO Glucose [Mass/Vol] 294 mg/dL High 74-99 [facility] Comment on above: Performed By: #### C DP, CMPX ####[facility] [id number] [facility] [place] [address] Lab Director: Ed Mcduffie DO Potassium [Moles/Vol] 4.7 mmol/L Normal 3.7-5.3 [facility] Comment on above: Performed By: #### C DP, CMPX ####[facility] [address] [facility] [place] [address] Lab Director: Ed Mcudffie DO Protein [Mass/Vol] 6.7 g/dL Normal 6.6-8.7 [facility] Comment on above: Performed By: #### C DP, CMPX ####[facility] [address] [facility] [place] [address] Lab Director: Ed Mcduffie DO Sodium [Moles/Vol] 137 mmol/L Normal 136-145 [facility] Comment on above: Performed By: #### C DP, CMPX ####[facility] [address] [facility] [place] [address] Lab Director: Ed Mcduffie DO Urea nitrogen [Mass/Vol] 28 mg/dL High 6-20 [facility] Comment on above: Performed By: #### C DP, CMPX ####[facility] [id number] [facility] [place] [address] Lab Director: Ed Mcduffie DO Comprehensive Metabolic Pane l w/ Reflex to MGon 09-15-2024 Albumin [Mass/Vol] 4.1 g/dL 3.5 - 5.2 g/dL [facility] ALP [Catalytic activity/Vol] 54 U/L 35 - 104 U/L [facility] ALT [Catalytic activity/Vol] 11 U/L 10 - 35 U/L [facility] Anion gap [Moles/Vol] 12 mmol/L 9 - 16 mmol/L [facility] AST [Catalytic activity/Vol] 19 U/L 10 - 35 U/L [facility] Bilirubin [Mass/Vol] mg/dL 0.0 - 1 .2 mg/dL [facility] Calcium [Mass/Vol] 9.2 mg/dL 8.6 - 10. 4 mg/dL [facility] Chloride [Moles/Vol] 102 mmol/L 98 - 10 7 mmol/L [facility] CO2 [Moles/Vol] 23 mmol/L 20 - 31 mmol/L [facility] Creatinine [Mass/Vol] 1.0 mg/dL 0.7 - 1.2 mg/dL [facility] Est, Jarocho Donist Rate 68 - PINF [facility] Comment on above: These results are not [...] 294 mg/dL High 74 - 99 mg/dL [facility] Interpretation and review of laboratory results Abnormal [facility] Potassium [Moles/Vol] 4.7 mmol/L 3.7 - 5.3 mmol/L [facility] Protein [Mass/Vol] 6.7 g/dL 6.6 - 8.7 g/dL [facility] Sodium [Moles/Vol] 137 mmol/L 136 - 145 mmol/L [facility] Urea nitrogen [Mass/Vol] 28 mg/dL High 6 - 20 mg/dL [facility] Glucose,Whole Bloodon 2023 Glucose [Mass/Vol] 381 mg/dL High 65-105 [facility] Glucose [Mass/Vol] 310 mg/dL High 65-105 [facility] Glucose [Mass/Vol] 297 mg/dL High 65-105 [facility] POC Glucose Fingerstickon Glucose [Mass/Vol] 381 mg/dL High 65 - 105 mg/dL [facility] Interpretation and review of laboratory results Abnormal [facility] Glucose [Mass/Vol] 310 mg/dL High 65 - 105 mg/dL [facility] Interpretation and review of laboratory results Abnormal [facility] Glucose [Mass/Vol] 297 mg/dL High 65 - 105 mg/dL [facility] Interpretation and review of laboratory results Abnormal [facility] FLUORO FOR SURGICAL PROCEDUR ESon 09-14-2024 FLUORO FOR SURGICAL PROCEDURES Radiology exam is complete. No Radiologist dictation. Please follow up with ordering provider. Final result Normal [facility] Glucose,Whole Bloodon 2023 Glucose [Mass/Vol] 353 mg/dL High 65-105 [facility] Glucose [Mass/Vol] 402 mg/dL Critically high 65-105 [facility] Glucose [Mass/Vol] 301 mg/dL High 65-105 [facility] Glucose [Mass/Vol] 280 mg/dL High 65-105 [facility] Guidance-- during surgeryon 09-14-2024 Radiology exam is complete. No Radiologist dictation. Please follow up with ordering provider. [facility] No Panel Informationon 09-14 1. Postsurgical changes of the left foot without visualized complication. 2. Questioned minimal anterior subluxation of the talus in relation to the distal tibia. 3. Note that overlying casting material obscures fine bony detail. [facility] EXAMINATION: THREE XRAY [...] material. No lytic or blastic lesions present. [facility] Hollie Patiño MD [...] overlying casting material obscures fine bony detail. [facility] Radiology Study observation (narrative) [facility] No Panel InformationOrdered By: Hollie Patiño on 09-14-2024 [facility] Work Phone: POC Glucose Fingerstickon Glucose [Mass/Vol] 353 mg/dL High 65 - 105 mg/dL [facility] Interpretation and review of laboratory results Abnormal [facility] Glucose [Mass/Vol] 402 mg/dL Critically high 65 - 1 05 mg/dL [facility] Interpretation and review of laboratory results Abnormal [facility] Glucose [Mass/Vol] 301 mg/dL High 65 - 105 mg/dL [facility] Interpretation and review of laboratory results Abnormal [facility] Glucose [Mass/Vol] 280 mg/dL High 65 - 105 mg/dL [facility] Interpretation and review of laboratory results Abnormal [facility] Surgical Pathology Reporton 09-14-2024 Surgical Pathology Report (NOTE) Path Number: [id number] -- Diagnosis -- ORTHOPEDIC HARDWARE, LEFT ANKLE, [...] x 0.6 cm. One bears the inscription [phone] [id number] 160MM ID 2 CE and the other [phone] [id number] 160MM ID 2 CE. There is a C-shaped conner metallic component that is 17.0 x 1.5 x 0.6 cm bearing the inscription [phone] [id number] 140MM ID 2. There is a U-shaped conner metallic device that is roughly 51.0 x 4.0 x 0.9 cm bearing the inscription [phone] [id number] CE 123 140MM ID. It has two threaded regions and two embedded conner metallic threaded screws that are 2.9 to 3.0 cm in length x 0.6 to 1.4 cm in diameter, with attached nuts. One screw bears the inscription [id number] [phone] CE and the other [id number] [phone] CE. There are two black to conner metallic and rubbery components that are 28.8 x 3.5 x 2.3 cm. It bears the inscription FRONT and [id number] CE 2. It has two additional black to conner metallic components attached by threaded screws and washers that are 5.7 cm in length x 0.6 to 1.0 cm in diameter. These components there the inscription [id number]. There are four conner metallic rectangular components each with four hollow spaces. It is 5.7 x 1.2 x 0.9 cm. They bear inscription [phone] CE [id number], [phone] CE [id number], [phone] CE [id number] and [phone] CE [id number]. There is a 3.3 x 1.2 x 0.9 cm conner metallic component with two hollow spaces that bears the inscription [phone] CE [id number]. There are eighteen conner, metallic, hexagonal threaded [...] diameter. They bear the inscriptions [phone] [id number], 3 16 [id number], 3 16 [id number] and 3 16 [id number]. There are three threaded conner, metallic bolt-like components that are 1.0 cm in length x 1.5 cm in diameter that there the inscription [phone] [id number], [phone] [id number] and [id number]. There are fourteen threaded conner, metallic components that are 2.9 cm in length x 0.6 to 1.4 cm in diameter, eight of which that bear the inscription [id number] [phone] CE. One bears the inscription [id number] [phone] CE and another [id number] [phone] CE. Two bare the inscription [id number] [phone] CE. Two bear the inscription [id number] [phone] CE. Lastly, there are four additional conner to black components that vary in size from 20.0 to 21.0 cm in length x 0.6 to 2.5 cm in diameter bearing inscriptions [phone] [id number] CE TLR STRUT-LONG 2 , 50-1090 [id number] CE TLR STRUT-LONG 2 , [phone] [id number] CE TLR STRUT-LONG 2 , and [phone] [id number] CE TLR STRUT-LONG 2. No sections are submitted for microscopic evaluation. Gross exam only. Yadira Wright./se:09/17/2024 Processing Lab: [address] [phone] Interpretation Performed at [address] [phone] SURGICAL PATHOLOGY CONSULTATION Patient Name: RISA WARNER [facility] Rec: [id number] [facility] [employer] [facility] ANATOMIC PATHOLOGY [address] [place] [phone] Normal [facility] XR ANKLE LEFT (MIN 3 VIEWS)o [...] Hollie Patiño MD 09/14/24 Final result Normal [facility] XR FOOT LEFT (MIN 3 VIEWS)on 09-14-2024 [...] Hollie Patiño MD 09/14/24 Final result Normal [facility] XR TIBIA FIBULA LEFT (2 VIEW S)on [...] Hollie Patiño MD 09/14/24 Final result Normal [facility] Basic Metabolic Panelon 12-1 Anion gap [Moles/Vol] 13 mmol/L 9 - 16 mmol/L [facility] Calcium [Mass/Vol] 10.4 mg/dL 8.6 - 10. 4 mg/dL [facility] Chloride [Moles/Vol] 104 mmol/L 98 - 10 7 mmol/L [facility] CO2 [Moles/Vol] 25 mmol/L 20 - 31 mmol/L [facility] Creatinine [Mass/Vol] 1.1 mg/dL 0.7 - 1.2 mg/dL [facility] Est, Glom Filt Rate 61 - PINF [facility] Comment on above: These results are not [...] [Mass/Vol] 90 mg/dL 74 - 99 mg/dL [facility] Interpretation and review of laboratory results Abnormal [facility] Potassium [Moles/Vol] 4.8 mmol/L 3.7 - 5.3 mmol/L [facility] Comment on above: Specimen hemolysis h as exceeded the interference as defined by Amauri. Value may be falsely increased. Suggest recollection if clinically indicated. Sodium [Moles/Vol] 142 mmol/L 136 - 145 mmol/L [facility] Urea nitrogen [Mass/Vol] 27 mg/dL High 6 - 20 mg/dL [facility] Basic Metabolic Profon 09-07 Anion gap [Moles/Vol] 13 mmol/L Normal 9-16 [facility] Comment on above: Performed By: #### B MEGA, CDP ####[facility] [address]xe[address] [facility].[place], [place] [phone] Director: Ed Mcduffie DO Calcium [Mass/Vol] 10.4 mg/dL Normal 8.6-10.4 [facility] Comment on above: Performed By: #### B MEGA, CDP ####[facility] Ucu6552 [facility].[place], [place] [phone] Director: Ed Mcduffie DO Chloride [Moles/Vol] 104 mmol/L Normal 98-107 [facility] Comment on above: Performed By: #### B MEGA, CDP ####[facility] Nog4570 [facility].[place], [place] [phone] Director: Ed Mcduffie DO CO2 [Moles/Vol] 25 mmol/L Normal 20-31 [facility] Comment on above: Performed By: #### B MEGA, CDP ####[facility] Vdn[address] [facility] [place] [address] Lab Director: Ed Mcduffie DO Creatinine [Mass/Vol] 1.1 mg/dL Normal 0.7-1.2 [facility] Comment on above: Performed By: #### B MEGA, CDP ####[facility] Dtk[address] [facility].[place], [place] [phone] Director: Ed Mcduffie DO GFR/1.73 sq M.predicted among non-blacks MDRD (S/P/Bld) [Vol rate/Area] 61 mL/min/{1.73_m2} Normal >60 [facility] Comment on above: Result Comment: These [...] secretion. Performed By: #### B MEGA, CDP ####[facility] Njx6894 [facility] [place] [address] Lab Director: Ed Mcduffie DO Glucose [Mass/Vol] 90 mg/dL Normal 74-99 [facility] Comment on above: Performed By: #### B MEGA, CDP ####[facility] Rbj4992 [facility] [place] [address] Lab Director: Ed Mcduffie DO Potassium [Moles/Vol] 4.8 mmol/L Normal 3.7-5.3 [facility] Comment on above: Result Comment: Spec imen hemolysis has exceeded the interference as defined by Amauri. Value may be falsely increased. Suggest recollection if clinically indicated. Performed By: #### B MEGA, CDP ####[facility] Hjt7985 [facility] [place] [address] Lab Director: Ed Mcduffie DO Sodium [Moles/Vol] 142 mmol/L Normal 136-145 [facility] Comment on above: Performed By: #### B MEGA, CDP ####[facility] Owa9160 [facility] [place] [address] Lab Director: Ed Mcduffie DO Urea nitrogen [Mass/Vol] 27 mg/dL High 6-20 [facility] Comment on above: Performed By: #### B MEGA, CDP ####[facility] Aol4190 [facility] [place] [address] Lab Director: Ed Mcduffie DO CBC with Auto Differentialon 09-07-2024 Basophils (Bld) [#/Vol] 0.10 10*3/uL [facility] Interpretation and review of laboratory results Abnormal [facility] Lymphocytes/100 WBC (Bld) 3.20 % [facility] Monocytes/100 WBC (Bld) 0.70 % B on [facility] Neutrophils/100 WBC (Bld) 43 % 36 - 66 % [facility] Segmented neutrophils/100 WBC (Bld) 3.30 % [facility] WBC other (Bld) [#/Vol] 7.[address] [facility] CBC with Diffon 09-07-2024 Abs. Basophil 0.10 k/uL Normal 0.0-0.2 [facility] Comment on above: Performed By: #### B MEGA, CDP ####[facility] Jgb5544 [facility] [place] [address] Lab Director: Ed Mcduffie DO Abs.Neutrophil (Seg) 3.30 k/uL Normal 1.3-9.1 [facility] Comment on above: Performed By: #### B MEGA, CDP ####[facility] Nny2238 [facility] [place] [address] Lab Director: Ed Mcduffie DO Basophils/100 WBC (Bld) 1 % Normal 0-2 B on [facility] Comment on above: Performed By: #### B MEGA, CDP ####[facility] Jnf7000 [facility] [place] [address] Lab Director: Ed Mcduffie DO Eosinophils (Bld) [#/Vol] 0.40 10*3/uL Normal 0.0-0.4 [facility] Comment on above: Performed By: #### B MEGA, CDP ####[facility] Mqc9280 [facility] [place] [address] Lab Director: Ed Mcduffie DO Eosinophils/100 WBC (Bld) 5 % High 0-4 [facility] Comment on above: Performed By: #### Denisse AYOUB, CDP ####[facility] Jww3589 [facility] [place] [address] Lab Director: Ed Mcduffie DO Erythrocyte distribution width (RBC) [Ratio] 14.4 % Normal 11.5-14.9 [facility] Comment on above: Performed By: #### B MEGA, CDP ####[address] [place] [address] Lab Director: Ed Mcduffie DO Hematocrit (Bld) [Volume fraction] 35.3 % Low 36-46 [facility] Comment on above: Performed By: #### Denises AYOUB, CDP ####[place] [address] [facility] [place] [address] Lab Director: Ed Mcduffie DO Hemoglobin (Bld) [Mass/Vol] 11.6 g/dL Low 12.0-16.0 [facility] Comment on above: Performed By: #### Denisse AYOUB, CDP ####[address] [place] [address] Lab Director: Ed Mcduffie DO Lymphocytes (Bld) [#/Vol] 3.20 10*3/uL Normal 1.0-4.8 [facility] Comment on above: Performed By: #### Denisse AYOUB, CDP ####[address] [place] [address] Lab Director: Ed Mcduffie DO Lymphocytes/100 WBC (Bld) 42 % Normal 24-44 [facility] Comment on above: Performed By: #### Denisse AYOUB, CDP ####[facility] Irn9809 [facility].[place], [place] [phone] Director: Ed Mcduffie DO MCH (RBC) [Entitic mass] 30.8 pg Normal 26-34 [facility] Comment on above: Performed By: #### B MEGA, CDP ####[facility] Mts6696 [facility].[place], [place] [phone] Director: Ed Mcduffie DO MCHC (RBC) [Mass/Vol] 32.9 g/dL Normal 31-37 [facility] Comment on above: Performed By: #### B MEGA, CDP ####[address], [place] [phone] Director: Ed Mcduffie DO MCV (RBC) [Entitic vol] 93.5 fL Normal 80-100 B on [facility] Comment on above: Performed By: #### B MEGA, CDP ####[facility] Lbx1946 [facility].[place], [place] [phone] Director: Ed Mcduffie DO Monocytes (Bld) [#/Vol] 0.70 10*3/uL Normal 0.1-1.3 [facility] Comment on above: Performed By: #### B MEGA, CDP ####[facility] [address] [place] [address].[place], [place] [phone] Director: Ed Mcduffie DO Monocytes/100 WBC (Bld) 9 % High 1-7 B on [facility] Comment on above: Performed By: #### B MEGA, CDP ####[facility] [address] [place] [address].[place], [place] [phone] Director: Ed Mcduffie DO Neutrophil (Seg) 43 % Normal 36-66 [facility] Comment on above: Performed By: #### B MEGA, CDP ####[facility] [address] [place] [address].[place] [address] Lab Director: Ed Mcduffie DO Platelet mean volume (Bld) [Entitic vol] 7.3 fL Normal 6.0-12.0 [facility] Comment on above: Performed By: #### B MEGA, CDP ####[facility] Bdp2454 [facility].[place], [place] [phone] Director: Ed Mcduffie DO Platelets (Bld) [#/Vol] 447 10*3/uL Normal 150-450 [facility] Comment on above: Performed By: #### Denisse AYOUB, CDP ####[facility] Asp9187 [facility].[place], [place] [phone] Director: Ed Mcduffie DO RBC (Bld) [#/Vol] 3.78 10*6/uL Low 4.0-5.2 [facility] Comment on above: Performed By: #### Denisse AYOUB, CDP ####[facility] Vcv9382 [facility].[place], [place] [phone] Director: dE Mcduffie DO WBC (Bld) [#/Vol] 7.6 10*3/uL Normal 3.5-11.0 [facility] Comment on above: Performed By: #### Denisse AYOUB, CDP ####[facility] [address] [place] [address].[place], [place] [phone] Director: Ed Mcduffie DO CT FOOT LEFT [...] Xiomara Betts MD 09/03/24 Final result Normal [facility] C-Reactive Proteinon 024 CRP High sensitivity method [Mass/Vol] 24.8 mg/L High 0.0 - 5.0 mg/L [facility] Interpretation and review of laboratory results Abnormal [facility] CRP [Mass/Vol] 24.8 mg/L High 0.0-5.0 [facility] Comment on above: Performed By: #### C RP ####[facility] [address] [place] [address] [facility] Director: Ed Mcduffie DO CKon 07-26-2024 CK [Catalytic activity/Vol] 216 U/L High 26 - 192 U/L [facility] Interpretation and review of laboratory results Abnormal [facility] CT ANKLE LEFT WO CONTRASTon 07-26-2024 [...] COMPARISON: None. HISTORY ORDERING SYSTEM PROVIDED HISTORY: [facility] ankle TECHNOLOGIST PROVIDED HISTORY: Ankle-hindfoot: Reformat Coronal [...] Ani Trejo MD 07/26/24 Final result Normal [facility] CT FOOT LEFT WO CONTRASTon 1 CT [...] July 13 HISTORY ORDERING SYSTEM PROVIDED HISTORY: [facility] ankle TECHNOLOGIST PROVIDED HISTORY: [facility] Is [...] Jason Long MD 07/26/24 Final result Normal [facility] Creatine Kinaseon 07-26-2024 CK [Catalytic activity/Vol] 216 U/L High 26-192 [facility] Comment on above: Performed By: #### BRAD Flores #### [facility] [address] [place] [address] [employer] Operator: Ed Mcduffie DO Glucose,Whole Bloodon 2023 Glucose [Mass/Vol] 278 mg/dL High 65-105 [facility] Glucose [Mass/Vol] 72 mg/dL Normal 65-105 [facility] Glucose [Mass/Vol] 180 mg/dL High 65-105 [facility] Glucose [Mass/Vol] 203 mg/dL High 65-105 [facility] POC Glucose Fingerstickon Glucose [Mass/Vol] 278 mg/dL High 65 - 105 mg/dL [facility] Interpretation and review of laboratory results Abnormal [facility] Glucose [Mass/Vol] 72 mg/dL 65 - 105 mg/dL [facility] Glucose [Mass/Vol] 180 mg/dL High 65 - 105 mg/dL [facility] Interpretation and review of laboratory results Abnormal [facility] Glucose [Mass/Vol] 203 mg/dL High 65 - 105 mg/dL [facility] Interpretation and review of laboratory results Abnormal [facility] Trop/Myoglobinon 07-26-2024 Interpretation and review of laboratory results Abnormal [facility] Myoglobin [Mass/Vol] 79 ng/mL High 25 - 58 ng/mL B on [facility] Troponin I.cardiac High sensitivity method [Mass/Vol] 23 ng/L High 0 - 14 ng/L [facility] Comment on above: High Sensitivity Tro ponin values cannot be compared with other Troponin methodologies. [facility] Myoglobin [Mass/Vol] 79 ng/mL High 25-58 [facility] Comment on above: Performed By: #### Lindsay Cooper, ROGERENZ #### [facility] [address] [place], [place] [phone] [employer] Operator: Ed Mcduffie DO Troponin, High Sens 23 ng/L High 0-14 [facility] Comment on above: Result Comment: High Sensitivity Troponin values cannot be compared with other Troponin methodologies. Performed By: #### C K, ECENZ #### [facility] [address] [place] [address] [employer] Operator: Ed Mcduffie DO CBC with Auto Differentialon 07-25-2024 Basophils (Bld) [#/Vol] 0.10 10*3/uL [facility] Basophils/100 WBC (Bld) 1 % 0 - 2 % B on [facility] Eosinophils (Bld) [#/Vol] 0.20 10*3/uL [facility] Eosinophils/100 WBC (Bld) 2 % 0 - 4 % [facility] Erythrocyte distribution width (RBC) [Ratio] 14.0 % 11.5 - 14.9 % [facility] Hematocrit (Bld) [Volume fraction] 33.2 % Low 36 - 46 % [facility] Hemoglobin (Bld) [Mass/Vol] 10.9 g/dL Low 12.0 - 16.0 g/dL [facility] Interpretation and review of laboratory results Abnormal [facility] Lymphocytes/100 WBC (Bld) 40 % 24 - 44 % [facility] Lymphocytes/100 WBC (Bld) 4.10 % [facility] MCH (RBC) [Entitic mass] 31.3 pg 26 - 34 pg [facility] MCHC (RBC) [Mass/Vol] 32.7 g/dL 31 - 37 g/dL B on [facility] MCV (RBC) [Entitic vol] 95.7 fL 80 - 100 fL [facility] Monocytes/100 WBC (Bld) 7 % 1 - 7 % B on [facility] Monocytes/100 WBC (Bld) 0.70 % B on [facility] Neutrophils/100 WBC (Bld) 50 % 36 - 66 % [facility] Platelet mean volume (Bld) [Entitic vol] 7.0 fL 6.0 - 12.0 fL [facility] Platelets (Bld) [#/Vol] 460 10*3/uL High [facility] RBC (Bld) [#/Vol] 3.46 10*6/uL Low 4.0 - 5.2 m/uL [facility] Segmented neutrophils/100 WBC (Bld) 5.10 % [facility] WBC other (Bld) [#/Vol] 10.[address] [facility] CBC with Diffon 07-25-2024 Abs. Basophil 0.10 k/uL Normal 0.0-0.2 [facility] Comment on above: Performed By: #### C DP, CP ####[facility] R[address] [place] [address] Lab Director: Ed Mcduffie DO Abs.Neutrophil (Seg) 5.10 k/uL Normal 1.3-9.1 [facility] Comment on above: Performed By: #### C DP, CP ####[facility] [address] [place] [address] Lab Director: Ed Mcduffie DO Basophils/100 WBC (Bld) 1 % Normal 0-2 [facility] Comment on above: Performed By: #### C DP, CP ####[facility] Qmd9465 [facility].[place], [place] [phone] Director: Ed Mcduffie DO Eosinophils (Bld) [#/Vol] 0.20 10*3/uL Normal 0.0-0.4 [facility] Comment on above: Performed By: #### C DP, CP ####[facility] Wmn4755 [address] [facility] [place] [address] Lab Director: Ed Mcduffie DO Eosinophils/100 WBC (Bld) 2 % Normal 0-4 [facility] Comment on above: Performed By: #### C DP, CP ####[facility] [address] [place] [address].[place] [address] Lab Director: Ed Mcduffie DO Erythrocyte distribution width (RBC) [Ratio] 14.0 % Normal 11.5-14.9 [facility] Comment on above: Performed By: #### C DP, CP ####[facility] Tfk3882 [facility] [place] [address] Lab Director: Ed Mcduffie DO Hematocrit (Bld) [Volume fraction] 33.2 % Low 36-46 [facility] Comment on above: Performed By: #### C DP, CP ####[facility] Swt[address] [place] [address] Lab Director: Ed Mcduffie DO Hemoglobin (Bld) [Mass/Vol] 10.9 g/dL Low 12.0-16.0 [facility] Comment on above: Performed By: #### C DP, CP ####[facility] [address] [place], [place] [phone] Director: Ed Mcduffie DO Lymphocytes (Bld) [#/Vol] 4.10 10*3/uL Normal 1.0-4.8 [facility] Comment on above: Performed By: #### C DP, CP ####[facility] Vda[address] [place], [place] [phone] Director: Ed Mcduffie DO Lymphocytes/100 WBC (Bld) 40 % Normal 24-44 [facility] Comment on above: Performed By: #### C DP, CP ####[facility] Ogd3474 [place], [place] [phone] Director: Ed Mcduffie DO MCH (RBC) [Entitic mass] 31.3 pg Normal 26-34 [facility] Comment on above: Performed By: #### C DP, CP ####[facility] Pgd2437 [place], [place] [phone] Director: Ed Mcduffie DO MCHC (RBC) [Mass/Vol] 32.7 g/dL Normal 31-37 [facility] Comment on above: Performed By: #### C DP, CP ####[facility] [address] [place] [address] [phone] Director: Ed Mcduffie DO MCV (RBC) [Entitic vol] 95.7 fL Normal 80-100 [facility] Comment on above: Performed By: #### C DP, CP ####[facility] Tbh[address] [facility], [place] [phone] Director: Ed Mcduffie DO Monocytes (Bld) [#/Vol] 0.70 10*3/uL Normal 0.1-1.3 [facility] Comment on above: Performed By: #### C DP, CP ####[facility] Nnv1729 [facility].[place], [place] [phone] Director: Ed Mcduffie DO Monocytes/100 WBC (Bld) 7 % Normal 1-7 [facility] Comment on above: Performed By: #### C DP, CP ####[facility] Ovj3770 [facility].[place], [place] [phone] Director: Ed Mcduffie DO Neutrophil (Seg) 50 % Normal 36-66 [facility] Comment on above: Performed By: #### C DP, CP ####[facility] Aby3162 [facility].[place], [place] [phone] Director: Ed Mcduffie DO Platelet mean volume (Bld) [Entitic vol] 7.0 fL Normal 6.0-12.0 [facility] Comment on above: Performed By: #### C DP, CP ####[facility] [address] [place] [address] [phone] Director: Ed Mcduffie DO Platelets (Bld) [#/Vol] 460 10*3/uL High 150-450 [facility] Comment on above: Performed By: #### C DP, CP ####[facility] [address] [place] [address].[place], [place] [phone] Director: Ed Mcduffie DO RBC (Bld) [#/Vol] 3.46 10*6/uL Low 4.0-5.2 [facility] Comment on above: Performed By: #### C DP, CP ####[facility] Acf[address] [place] [address] Lab Director: Ed Mcduffie DO WBC (Bld) [#/Vol] 10.2 10*3/uL Normal 3.5-11.0 [facility] Comment on above: Performed By: #### C DP, CP ####[facility] [address] [place] [address] Lab Director: Ed Mcduffie DO Comp Metabolic Profon 2023 Albumin [Mass/Vol] 4.0 g/dL Normal 3.5-5.2 [facility] Comment on above: Performed By: #### Lindsay Cooper, ECENZ #### [facility] [address] [place] [address] [employer] Operator: Ed Mcduffie DO Alkaline Phos 62 U/L Normal 35-104 [facility] Comment on above: Performed By: #### Lindsay Cooper, ECENZ #### [facility] [address] [facility] [place] [address] [employer] Operator: Ed Mcduffie DO ALT [Catalytic activity/Vol] 12 U/L Normal 10-35 [facility] Comment on above: Performed By: #### Lindsay Cooper, ECENZ #### [facility] [place] [address] [employer] Operator: Ed Mcduffie DO Anion gap [Moles/Vol] 13 mmol/L Normal 9-16 [facility] Comment on above: Performed By: #### Lindsay Cooper, ECENZ #### [facility] [address] [facility] [place] [address] [employer] Operator: Ed Mcduffie DO AST [Catalytic activity/Vol] 19 U/L Normal 10-35 [facility] Comment on above: Performed By: #### Lindsay Cooper, ECENZ #### [facility] [address] [facility] [place] [address] [employer] Operator: Ed Mcduffie DO Bilirubin [Mass/Vol] mg/dL Normal 0.0-1.2 [facility] Comment on above: Performed By: #### Lindsay Cooper, ECENZ #### [facility] [place] [address] [employer] Operator: Ed Mcduffie DO Calcium [Mass/Vol] 9.4 mg/dL Normal 8.6-10.4 [facility] Comment on above: Performed By: #### Lindsay Cooper, ECENZ #### [facility] [address] [place] [address]. [place] [address] [employer] Operator: Ed Mcduffie DO Chloride [Moles/Vol] 99 mmol/L Normal 98-107 [facility] Comment on above: Performed By: #### Lindsay Cooper, ECENZ #### [facility] [address] [place] [address]. [place] [address] [employer] Operator: Ed Mcduffie DO CO2 [Moles/Vol] 23 mmol/L Normal 20-31 [facility] Comment on above: Performed By: #### Lindsay Cooper, ECENZ #### [facility] [address] [place] [address]. [place] [address] [employer] Operator: Ed Mcduffie DO Creatinine [Mass/Vol] 1.2 mg/dL Normal 0.7-1.2 [facility] Comment on above: Performed By: #### Lindsay Cooper, ECENZ #### [facility] [address] [place] [phone] [employer] Operator: Ed Mcduffie DO GFR/1.73 sq M.predicted among non-blacks MDRD (S/P/Bld) [Vol rate/Area] 55 mL/min/{1.73_m2} Low >60 [facility] Comment on above: Result Comment: These [...] Performed By: #### Lindsay Cooper, ECENZ #### [facility] [address] [place] [address]. [place] [address] [employer] Operator: Ed Mcduffie, DO Glucose [Mass/Vol] 191 mg/dL High 74-99 [facility] Comment on above: Performed By: #### Lindsay Cooper, ECENZ #### [facility] [address] [place] [address]. [place] [address] [employer] Operator: Ed Mcduffie DO Potassium [Moles/Vol] 4.6 mmol/L Normal 3.7-5.3 [facility] Comment on above: Performed By: #### Lindsay Cooper, ECENZ #### [facility] [address] [place] [address]. [place] [address] [employer] Operator: Ed Mcduffie DO Protein [Mass/Vol] 7.1 g/dL Normal 6.6-8.7 [facility] Comment on above: Performed By: #### Lindsay Cooper, ECENZ #### [facility] [address] [place] [address]. [place] [address] [employer] Collection System Operator: Ed Mcduffie DO Sodium [Moles/Vol] 135 mmol/L Low 136-145 [facility] Comment on above: Performed By: #### Lindsay Cooper, ECENZ #### [facility] [address] [place] [address]. [place] [address] [employer] Collection System Operator: Ed Mcduffie DO Urea nitrogen [Mass/Vol] 38 mg/dL High 6-20 [facility] Comment on above: Performed By: #### Lindsay Cooper, ECENZ #### [facility] [address] [place] [address] [employer] Collection System Operator: Ed Mcduffie DO [facility] 07-25-2024 Albumin [Mass/Vol] 4.0 g/dL 3.5 - 5.2 g/dL [facility] ALP [Catalytic activity/Vol] 62 U/L 35 - 104 U/L [facility] ALT [Catalytic activity/Vol] 12 U/L 10 - 35 U/L [facility] Anion gap [Moles/Vol] 13 mmol/L 9 - 16 mmol/L [facility] AST [Catalytic activity/Vol] 19 U/L 10 - 35 U/L [facility] Bilirubin [Mass/Vol] mg/dL 0.0 - 1 .2 mg/dL [facility] Calcium [Mass/Vol] 9.4 mg/dL 8.6 - 10. 4 mg/dL [facility] Chloride [Moles/Vol] 99 mmol/L 98 - 10 7 mmol/L [facility] CO2 [Moles/Vol] 23 mmol/L 20 - 31 mmol/L [facility] Creatinine [Mass/Vol] 1.2 mg/dL 0.7 - 1.2 mg/dL [facility] Est, Jarocho Filt Rate 55 Low - PINF [facility] Comment on above: These results are not [...] 191 mg/dL High 74 - 99 mg/dL [facility] Interpretation and review of laboratory results Abnormal [facility] Potassium [Moles/Vol] 4.6 mmol/L 3.7 - 5.3 mmol/L [facility] Protein [Mass/Vol] 7.1 g/dL 6.6 - 8.7 g/dL [facility] Sodium [Moles/Vol] 135 mmol/L Low 136 - 145 mmol/L [facility] Urea nitrogen [Mass/Vol] 38 mg/dL High 6 - 20 mg/dL [facility] Glucose,Whole Bloodon 2023 Glucose [Mass/Vol] 180 mg/dL High 65-105 [facility] Glucose [Mass/Vol] 154 mg/dL High 65-105 [facility] Glucose [Mass/Vol] 138 mg/dL High 65-105 [facility] Glucose [Mass/Vol] 205 mg/dL High 65-105 [facility] POC Glucose Fingerstickon Glucose [Mass/Vol] 180 mg/dL High 65 - 105 mg/dL [facility] Interpretation and review of laboratory results Abnormal [facility] Glucose [Mass/Vol] 154 mg/dL High 65 - 105 mg/dL [facility] Interpretation and review of laboratory results Abnormal [facility] Glucose [Mass/Vol] 138 mg/dL High 65 - 105 mg/dL [facility] Interpretation and review of laboratory results Abnormal [facility] Glucose [Mass/Vol] 205 mg/dL High 65 - 105 mg/dL [facility] Interpretation and review of laboratory results Abnormal [facility] CBC with Auto Differentialon 07-24-2024 Basophils (Bld) [#/Vol] 0.10 10*3/uL [facility] Interpretation and review of laboratory results Abnormal [facility] Lymphocytes/100 WBC (Bld) 1.90 % [facility] Monocytes/100 WBC (Bld) 1.10 % B on [facility] Neutrophils/100 WBC (Bld) 79 % High 36 - 66 % [facility] Segmented neutrophils/100 WBC (Bld) 11.30 % High [facility] WBC other (Bld) [#/Vol] 14.[address] [facility] CBC with Diffon 07-24-2024 Basophils/100 WBC (Bld) 1 % Normal 0-2 B on [facility] Comment on above: Performed By: #### C MPX, CDP ####[facility] [address] [place] [address] Lab Director: Ed Mcduffie DO Eosinophils (Bld) [#/Vol] 0.00 10*3/uL Normal 0.0-0.4 [facility] Comment on above: Performed By: #### C MPX, CDP ####[address] [address] Lab Director: Ed Mcduffie DO Eosinophils/100 WBC (Bld) 0 % Normal 0-4 [facility] Comment on above: Performed By: #### C MPX, CDP ####[address] [address] Lab Director: Ed Mcduffie DO Erythrocyte distribution width (RBC) [Ratio] 14.0 % Normal 11.5-14.9 [facility] Comment on above: Performed By: #### C MEGAX, CDP ####[address] [address] Lab Director: Ed Mcduffie DO Hematocrit (Bld) [Volume fraction] 33.0 % Low 36-46 [facility] Comment on above: Performed By: #### C MPX, CDP ####[address] [address] Lab Director: Ed Mcduffie DO Hemoglobin (Bld) [Mass/Vol] 10.8 g/dL Low 12.0-16.0 [facility] Comment on above: Performed By: #### C MPX, CDP ####[address] [address] Lab Director: Ed Mcduffie DO Lymphocytes/100 WBC (Bld) 13 % Low 24-44 [facility] Comment on above: Performed By: #### C MPX, CDP ####[facility] [address] [place] [address] Lab Director: Ed Mcduffie DO MCH (RBC) [Entitic mass] 31.3 pg Normal 26-34 [facility] Comment on above: Performed By: #### C MPX, CDP ####[address] [address] Lab Director: Ed Mcduffie DO MCHC (RBC) [Mass/Vol] 32.7 g/dL Normal 31-37 [facility] Comment on above: Performed By: #### C MPX, CDP ####[address] [address] Lab Director: Ed Mcduffie DO MCV (RBC) [Entitic vol] 95.8 fL Normal 80-100 B on [facility] Comment on above: Performed By: #### C SHELBY, CDP ####[address] [address] Lab Director: Ed Mcduffie DO Monocytes/100 WBC (Bld) 7 % Normal 1-7 B on [facility] Comment on above: Performed By: #### C MEGAX, CDP ####[address] [address] Lab Director: Ed Mcduffie DO Platelet mean volume (Bld) [Entitic vol] 7.8 fL Normal 6.0-12.0 [facility] Comment on above: Performed By: #### C MPX, CDP ####[address] [address] Lab Director: Ed Mcduffie DO Platelets (Bld) [#/Vol] 473 10*3/uL High 150-450 [facility] Comment on above: Performed By: #### C MPX, CDP ####[facility] [address], [place] [phone] Director: Ed Mcduffie DO RBC (Bld) [#/Vol] 3.45 10*6/uL Low 4.0-5.2 [facility] Comment on above: Performed By: #### C MPX, CDP ####[facility] [address], [place] [phone] Director: Ed Mcduffie DO Abs. Basophil 0.10 k/uL Normal 0.0-0.2 [facility] Comment on above: Performed By: #### C MPX, CDP ####[facility] Xdc[address] [facility], [place] [phone] Director: Ed Mcduffie DO Abs.Neutrophil (Seg) 11.30 k/uL High 1.3-9.1 [facility] Comment on above: Performed By: #### C SHELBY, CDP ####[facility] [address] [facility], [place] [phone] Director: Ed Mcduffie DO Lymphocytes (Bld) [#/Vol] 1.90 10*3/uL Normal 1.0-4.8 [facility] Comment on above: Performed By: #### C MEGAX, CDP ####[facility] [address] [facility].[place], [place] [phone] Director: Ed Mcduffie DO Monocytes (Bld) [#/Vol] 1.10 10*3/uL Normal 0.1-1.3 [facility] Comment on above: Performed By: #### C MPX, CDP ####[facility] [address] [facility], [place] [phone] Director: Ed Mcduffie DO Neutrophil (Seg) 79 % High 36-66 [facility] Comment on above: Performed By: #### C MPX, CDP ####[facility] [address] [place], [place] [phone] Director: Ed Mcduffie DO WBC (Bld) [#/Vol] 14.4 10*3/uL High 3.5-11.0 [facility] Comment on above: Performed By: #### C MPX, CDP ####[facility] [address] [place], [place] [phone] Director: Ed Mcduffie DO Comp Metabolic Pr/rfx MGon 1 0- Albumin [Mass/Vol] 3.9 g/dL Normal 3.5-5.2 [facility] Comment on above: Performed By: #### C MPX, CDP ####[facility] [address] [place], [place] [phone] Director: Ed Mcduffie DO Alkaline Phos 60 U/L Normal 35-104 [facility] Comment on above: Performed By: #### C MEGAX, CDP ####[facility] [address] [place], [place] [phone] Director: Ed Mcduffie DO ALT [Catalytic activity/Vol] 18 U/L Normal 10-35 [facility] Comment on above: Performed By: #### C MPX, CDP ####[facility] Nql74[address] [place], [place] [phone] Director: Ed Mcduffie DO AST [Catalytic activity/Vol] 32 U/L Normal 10-35 [facility] Comment on above: Result Comment: SPEC IMEN SLIGHTLY HEMOLYZED, RESULTS MAY BE ADVERSELY AFFECTED. Performed By: #### C MPX, CDP ####[facility] [address] [place] [address] Lab Director: Ed Mcduffie DO Potassium [Moles/Vol] 5.3 mmol/L Normal 3.7-5.3 [facility] Comment on above: Result Comment: SPEC IMEN SLIGHTLY HEMOLYZED, RESULTS MAY BE ADVERSELY AFFECTED. Performed By: #### C MPX, CDP ####[facility] [address] [place] [address] Lab Director: Ed Mcduffie DO Anion gap [Moles/Vol] 12 mmol/L Normal 9-16 [facility] Comment on above: Performed By: #### C MPX, CDP ####[facility] Lxj[address] [facility] [place] [address] Lab Director: Ed Mcduffie DO Bilirubin [Mass/Vol] mg/dL Normal 0.0-1.2 [facility] Comment on above: Performed By: #### C MPX, CDP ####[facility] Cys[address] [facility] [place] [address] Lab Director: Ed Mcduffie DO Calcium [Mass/Vol] 9.0 mg/dL Normal 8.6-10.4 [facility] Comment on above: Performed By: #### C MPX, CDP ####[facility] [address] [facility] [place] [address] Lab Director: Ed Mcduffie DO Chloride [Moles/Vol] 103 mmol/L Normal 98-107 [facility] Comment on above: Performed By: #### C MPX, CDP ####[facility] [address] [facility] [place] [address] Lab Director: Ed Mcduffie DO CO2 [Moles/Vol] 21 mmol/L Normal 20-31 [facility] Comment on above: Performed By: #### C MPX, CDP ####[facility] [address] [facility] [place] [address] Lab Director: Ed Mcduffie DO Creatinine [Mass/Vol] 1.1 mg/dL Normal 0.7-1.2 [facility] Comment on above: Performed By: #### C MPX, CDP ####[facility] [address] [place] [address] Lab Director: Ed Mcduffie DO GFR/1.73 sq M.predicted among non-blacks MDRD (S/P/Bld) [Vol rate/Area] 61 mL/min/{1.73_m2} Normal >60 [facility] Comment on above: Result Comment: These [...] secretion. Performed By: #### C MPX, CDP ####[facility] [address] [facility] [place] [address] Lab Director: Ed Mcduffie DO Glucose [Mass/Vol] 144 mg/dL High 74-99 [facility] Comment on above: Performed By: #### C MPX, CDP ####[facility] Gzd8417 [facility] [place] [address] Lab Director: Ed Mcduffie DO Protein [Mass/Vol] 6.9 g/dL Normal 6.6-8.7 [facility] Comment on above: Performed By: #### C MPX, CDP ####[facility] Xqe[address]63 [facility] [place] [address] lab Director: Ed Mcduffie DO Sodium [Moles/Vol] 136 mmol/L Normal 136-145 [facility] Comment on above: Performed By: #### C MPX, CDP ####[facility] Neq5877 [facility] [place] [address] Lab Director: Ed Mcduffie DO Urea nitrogen [Mass/Vol] 27 mg/dL High 6-20 [facility] Comment on above: Performed By: #### C MPX, CDP ####[facility] Dak[address] [facility] [place] [address] Lab Director: Ed Mcduffie DO Comprehensive Metabolic Pane l w/ Reflex to MGon 07-24-2024 Albumin [Mass/Vol] 3.9 g/dL 3.5 - 5.2 g/dL [facility] ALP [Catalytic activity/Vol] 60 U/L 35 - 104 U/L [facility] ALT [Catalytic activity/Vol] 18 U/L 10 - 35 U/L [facility] Anion gap [Moles/Vol] 12 mmol/L 9 - 16 mmol/L [facility] AST [Catalytic activity/Vol] 32 U/L 10 - 35 U/L [facility] Comment on above: SPECIMEN SLIGHTLY HE MOLYZED, RESULTS MAY BE ADVERSELY AFFECTED. Bilirubin [Mass/Vol] mg/dL 0.0 - 1 .2 mg/dL [facility] Calcium [Mass/Vol] 9.0 mg/dL 8.6 - 10. 4 mg/dL [facility] Chloride [Moles/Vol] 103 mmol/L 98 - 10 7 mmol/L [facility] CO2 [Moles/Vol] 21 mmol/L 20 - 31 mmol/L [facility] Creatinine [Mass/Vol] 1.1 mg/dL 0.7 - 1.2 mg/dL [facility] Est, Glom Filt Rate 61 - PINF [facility] Comment on above: These results are not [...] 144 mg/dL High 74 - 99 mg/dL [facility] Interpretation and review of laboratory results Abnormal [facility] Potassium [Moles/Vol] 5.3 mmol/L 3.7 - 5.3 mmol/L [facility] Comment on above: SPECIMEN SLIGHTLY HE MOLYZED, RESULTS MAY BE ADVERSELY AFFECTED. Protein [Mass/Vol] 6.9 g/dL 6.6 - 8.7 g/dL [facility] Sodium [Moles/Vol] 136 mmol/L 136 - 145 mmol/L [facility] Urea nitrogen [Mass/Vol] 27 mg/dL High 6 - 20 mg/dL [facility] Glucose,Whole Bloodon 2023 Glucose [Mass/Vol] 150 mg/dL High 65-105 [facility] Glucose [Mass/Vol] 250 mg/dL High -105 [facility] Glucose [Mass/Vol] 224 mg/dL High 65-105 [facility] Glucose [Mass/Vol] 385 mg/dL High 65-105 [facility] Hemoglobin A1Con 07-24-2024 Average glucose Estimated from glycated hemoglobin (Bld) [Mass/Vol] 206 mg/dL [facility] Comment on above: The ADA and AACC rec ommend providing the estimated average glucose result to permit better patient understanding of their HBA1c result. HbA1c (Bld) [Mass fraction] 8.8 % High 4.0 - 6.0 % [facility] Interpretation and review of laboratory results Abnormal [facility] Glucose [Mass/Vol] 206 mg/dL Normal [facility] Comment on above: Result Comment: The ADA and AACC recommend providing the estimated average glucose result to permit better patient understanding of their HBA1c result. Performed By: #### BRAD Flores #### [facility] [address] [place] [place] [address] [employer] System Operator: Ed Mcduffie DO HbA1c (Bld) [Mass fraction] 8.8 % High 4.0-6.0 [facility] Comment on above: Performed By: #### Lindsay Cooper, ECENZ #### [facility] [address] [place] [address] [employer] Collection System Operator: Ed Mcduffie DO No Panel Informationon 07-24 [facility] POC Glucose Fingerstickon Glucose [Mass/Vol] 150 mg/dL High 65 - 105 mg/dL [facility] Interpretation and review of laboratory results Abnormal [facility] Glucose [Mass/Vol] 250 mg/dL High 65 - 105 mg/dL [facility] Interpretation and review of laboratory results Abnormal [facility] Glucose [Mass/Vol] 224 mg/dL High 65 - 105 mg/dL [facility] Interpretation and review of laboratory results Abnormal [facility] Glucose [Mass/Vol] 385 mg/dL High 65 - 105 mg/dL [facility] Interpretation and review of laboratory results Abnormal [facility] Prealbuminon 07-24-2024 Prealbumin [Mass/Vol] 27.5 mg/dL 20.0 - 40.0 mg/dL [facility] Prealbumin [Mass/Vol] 27.5 mg/dL Normal 20.0-40.0 [facility] Comment on above: Performed By: #### Lindsay Cooper, ECENZ #### [facility] [address] [place] [address] [employer] Collection System Operator: Ed Mcduffie DO Sedimentation Rateon 024 ESR Photometric method (Bld) [Velocity] 25 [facility] Sedimentation Rate 25 mm/Hr Normal 0-30 [facility] Comment on above: Performed By: #### Lindsay Cooper, ECENZ #### [facility] [address] [place] [address] [employer] Collection System Operator: Ed Mcduffie DO Vitamin D 25 Hydroxyon 07-24 25-hydroxyvitamin D3 [Mass/Vol] ng/mL Low 30.0 - 100.0 ng/mL [facility] Comment on above: Reference Range: Vitamin D status Range Deficiency <20 ng/mL Mild Deficiency 20-30 ng/mL Sufficiency 30-100 ng/mL Toxicity >100 ng/mL Interpretation and review of laboratory results Abnormal [facility] Vitamin D 25 OHon 07-24-2024 Vitamin D 25 OH <6.0 Low 30.0-100.0 [facility] Comment on above: Result Comment: Reference Range: Vitamin D status Range Deficiency <20 ng/mL Mild Deficiency 20-30 ng/mL Sufficiency 30-100 ng/mL Toxicity >100 ng/mL Performed By: #### C K, ECENZ #### [facility] [address] [facility] [place] [address] [employer] Operator: Ed Mcduffie DO FLUORO FOR SURGICAL PROCEDUR ESon 07-23-2024 FLUORO FOR SURGICAL PROCEDURES Radiology exam is complete. No Radiologist dictation. Please follow up with ordering provider. Final result Normal [facility] Glucose,Whole Bloodon 2023 Glucose [Mass/Vol] 408 mg/dL Critically high 65-105 [facility] Comment on above: Result Comment: Kae son Noted Glucose [Mass/Vol] 284 mg/dL High 65-105 [facility] Glucose [Mass/Vol] 188 mg/dL High 65-105 [facility] Guidance-- during surgeryon 07-23-2024 Radiology exam is complete. No Radiologist dictation. Please follow up with ordering provider. [facility] RIS CONSOLIDATED K (Potassium)on 07-23-2024 Potassium [Moles/Vol] 5.5 mmol/L High 3.7-5.3 [facility] Comment on above: Performed By: #### K ####[facility] [address]vh[address] [facility], [place] [id number] Lab Director: Ed Mcduffie DO No Panel Informationon 07-23 Postoperative left leg, ankle and foot radiographs. [facility] RIS CONSOLIDATED EXAMINATION: THREE XRAY VIEWS OF [...] surrounds the lower leg, ankle and foot. [facility] Carlos Gibbons MD - 07/23/2024 EXAMINATION: THREE [...] Postoperative left leg, ankle and foot radiographs. [facility] No Panel InformationOrdered By: Carlos Orta on 07-23-2024 [facility] Work Phone: POC Glucose Fingerstickon Glucose [Mass/Vol] 408 mg/dL Critically high 65 - 1 05 mg/dL [facility] Comment on above: Critical Noted Interpretation and review of laboratory results Abnormal [facility] Glucose [Mass/Vol] 284 mg/dL High 65 - 105 mg/dL [facility] Interpretation and review of laboratory results Abnormal [facility] Glucose [Mass/Vol] 188 mg/dL High 65 - 105 mg/dL [facility] Interpretation and review of laboratory results Abnormal [facility] Potassiumon 07-23-2024 Interpretation and review of laboratory results Abnormal [facility] Potassium [Moles/Vol] 5.5 mmol/L High 3.7 - 5.3 mmol/L [facility] XR ANKLE LEFT (MIN 3 VIEWS)o [...] Carlos Orta MD 07/23/24 Final result Normal [facility] XR Ankle - left 3 [employer] Radiology Study observation (narrative) [facility] XR FOOT LEFT (MIN 3 VIEWS)on 07-23-2024 [...] Carlos Orta MD 07/23/24 Final result Normal [facility] XR Foot - left 3 [employer] Radiology Study observation (narrative) [facility] [employer] XR TIBIA FIBULA LEFT (2 VIEW S)on [...] Carlos Orta MD 07/23/24 Final result Normal [facility] XR Tibia and Fibula - left 2 [employer] 07-23-2024 Radiology Study observation (narrative) [facility] [employer] Basic Metabolic Panelon 06-27 Anion gap [Moles/Vol] 13 mmol/L 9 - 16 mmol/L [facility] [employer] Calcium [Mass/Vol] 9.6 mg/dL 8.6 - 10. 4 mg/dL [facility] [employer] Chloride [Moles/Vol] 101 mmol/L 98 - 10 7 mmol/L [facility] [employer] CO2 [Moles/Vol] 21 mmol/L 20 - 31 mmol/L [facility] [employer] Creatinine [Mass/Vol] 1.1 mg/dL High 0.50 - 0.90 mg/dL [facility] [employer] Est, Glom Filt Rate 64 - PINF [facility] Comment on above: These results are not [...] 365 mg/dL High 74 - 99 mg/dL [facility] Interpretation and review of laboratory results Abnormal [facility] Potassium [Moles/Vol] 5.8 mmol/L High 3.7 - 5.3 mmol/L [facility] Sodium [Moles/Vol] 135 mmol/L Low 136 - 145 mmol/L [facility] Urea nitrogen [Mass/Vol] 30 mg/dL High 6 - 20 mg/dL [facility] Basic Metabolic Profon 07-18 Anion gap [Moles/Vol] 13 mmol/L Normal 9-16 [facility] Comment on above: Performed By: #### B MP ####[facility] [place], [place] [phone] Director: Melvin Santoyo MD#### CDP ####[facility] [address] [place], [place] [phone] Director: Ed Mcduffie, DO Calcium [Mass/Vol] 9.6 mg/dL Normal 8.6-10.4 [facility] Comment on above: Performed By: #### B MP ####[facility] [address] [place], [place] [phone] Director: Melvin Santoyo MD#### CDP ####[facility] [address] [place], [place] [phone] Director: Ed Mcduffie, DO Chloride [Moles/Vol] 101 mmol/L Normal 98-107 [facility] Comment on above: Performed By: #### B MP ####[facility] [place], [place] [phone] Director: Melvin Santoyo MD#### CDP ####[facility] [address] [facility], [place] [phone] Director: Ed Mcduffie DO CO2 [Moles/Vol] 21 mmol/L Normal 20-31 [facility] Comment on above: Performed By: #### B MP ####[address] [phone] Director: Melvin Santoyo MD#### CDP ####[facility] [address] [place], [place] [phone] Director: Ed Mcduffie DO Creatinine [Mass/Vol] 1.1 mg/dL High 0.50-0.90 [facility] Comment on above: Performed By: #### B MP ####[address] [phone] Director: Melvin Santoyo MD#### CDP ####[facility] Yic[address] [place], [place] [phone] Director: Ed Mcduffie DO GFR/1.73 sq M.predicted among non-blacks MDRD (S/P/Bld) [Vol rate/Area] 64 mL/min/{1.73_m2} Normal >60 [facility] Comment on above: Result Comment: These [...] tubular secretion. Performed By: #### B MP ####[address] [phone] Director: Melvin Santoyo MD#### CDP ####[facility] [address] [place] [address] Lab Director: Ed Mcduffie DO Glucose [Mass/Vol] 365 mg/dL High 74-99 [facility] Comment on above: Performed By: #### B MP ####[place] [place] [place] [address] Lab Director: Melvin Santoyo MD#### CDP ####[facility] [address] [place], [place] [phone] Director: Ed Mcduffie DO Potassium [Moles/Vol] 5.8 mmol/L High 3.7-5.3 [facility] Comment on above: Performed By: #### B MP ####[address] [phone] Director: Melvin Santoyo MD#### CDP ####[facility] F[address] [facility] [place] [phone] Director: Ed Mcduffie DO Sodium [Moles/Vol] 135 mmol/L Low 136-145 [facility] Comment on above: Performed By: #### B MP ####[address] [address] Lab Director: Melvin Santoyo MD#### CDP ####[facility] [address] [place], [place] [phone] Director: Ed Mcduffie DO Urea nitrogen [Mass/Vol] 30 mg/dL High 6-20 [facility] Comment on above: Performed By: #### B MP ####[address] [phone] Director: Melvin Santoyo MD#### CDP ####[facility] [address] [place] [address] [place] [address] [facility] Director: Ed Mcduffie, CBC with Auto Differentialon 07-18-2024 Basophils (Bld) [#/Vol] 0.10 10*3/uL [facility] Basophils/100 WBC (Bld) 1 % 0 - 2 % [facility] Eosinophils (Bld) [#/Vol] 0.40 10*3/uL [facility] Eosinophils/100 WBC (Bld) 6 % High 0 - 4 % [facility] Erythrocyte distribution width (RBC) [Ratio] 14.2 % 11.5 - 14.9 % [facility] Hematocrit (Bld) [Volume fraction] 36.3 % 36 - 46 % [facility] Hemoglobin (Bld) [Mass/Vol] 12.2 g/dL 12.0 - 16.0 g/dL [facility] Interpretation and review of laboratory results Abnormal [facility] Lymphocytes/100 WBC (Bld) 36 % 24 - 44 % [facility] [facility] Lymphocytes/100 WBC (Bld) 2.50 % [facility] MCH (RBC) [Entitic mass] 32.0 pg 26 - 34 pg [facility] MCHC (RBC) [Mass/Vol] 33.7 g/dL 31 - 37 g/dL B [facility] MCV (RBC) [Entitic vol] 94.9 fL 80 - 100 fL [facility] Monocytes/100 WBC (Bld) 6 % 1 - 7 % B on [facility] Monocytes/100 WBC (Bld) 0.40 % [facility] Neutrophils/100 WBC (Bld) 51 % 36 - 66 % [facility] Platelet mean volume (Bld) [Entitic vol] 7.7 fL 6.0 - 12.0 fL [facility] Platelets (Bld) [#/Vol] 514 10*3/uL High [facility] RBC (Bld) [#/Vol] 3.82 10*6/uL Low 4.0 - 5.2 m/uL [facility] Segmented neutrophils/100 WBC (Bld) 3.60 % [facility] WBC other (Bld) [#/Vol] 7.0 B on [facility] CBC with Diffon 07-18-2024 Abs. Basophil 0.10 k/uL Normal 0.0-0.2 [facility] Comment on above: Performed By: #### B MP ####[address] [address] Lab Director: Melvin Santoyo MD#### CDP ####[facility] Qtq6006 [place] [address] Lab Director: Ed Mcduffie DO Abs.Neutrophil (Seg) 3.60 k/uL Normal 1.3-9.1 [facility] Comment on above: Performed By: #### B MP ####[address] [address] Lab Director: Melvin Santoyo MD#### CDP ####[facility] Xye6243 [place], [place] [phone] Director: Ed Mcduffie DO Basophils/100 WBC (Bld) 1 % Normal 0-2 [facility] Comment on above: Performed By: #### B MP ####[address] [address] Lab Director: Melvin Santoyo MD#### CDP ####[facility] Xko8900 [place], [place] [phone] Director: dE Mcduffie DO Eosinophils (Bld) [#/Vol] 0.40 10*3/uL Normal 0.0-0.4 [facility] Comment on above: Performed By: #### B MP ####[address] [phone] Director: Melvin Santoyo MD#### CDP ####[facility] [id number] [place] [address] Lab Director: Ed Mcduffie DO Eosinophils/100 WBC (Bld) 6 % High 0-4 [facility] Comment on above: Performed By: #### B MP ####[address] [address] Lab Director: Melvin Santoyo MD#### CDP ####[facility] Spr4475 [place] [address] Lab Director: Ed Mcduffie DO Erythrocyte distribution width (RBC) [Ratio] 14.2 % Normal 11.5-14.9 [facility] Comment on above: Performed By: #### B MP ####[address] [address] Lab Director: Melvin Santoyo MD#### CDP ####[address] [address] Lab Director: Ed Mcduffie DO Hematocrit (Bld) [Volume fraction] 36.3 % Normal 36-46 [facility] Comment on above: Performed By: #### B MP ####[address] [address] Lab Director: Melvin Santoyo MD#### CDP ####[facility] Ghx5413 [place] [address] Lab Director: Ed Mcduffie DO Hemoglobin (Bld) [Mass/Vol] 12.2 g/dL Normal 12.0-16.0 [facility] Comment on above: Performed By: #### B MP ####[address] [address] Lab Director: Melvni Santoyo MD#### CDP ####[facility] [address] [place] [address] Lab Director: Ed Mcduffie DO Lymphocytes (Bld) [#/Vol] 2.50 10*3/uL Normal 1.0-4.8 [facility] Comment on above: Performed By: #### B MP ####[address] [phone] Director: Melvin Santoyo MD#### CDP ####[facility] Dqr0980 [place], [place] [phone] Director: Ed Mcduffie DO Lymphocytes/100 WBC (Bld) 36 % Normal 24-44 [facility] Comment on above: Performed By: #### B MP ####[address] [phone] Director: Melvin Santoyo MD#### CDP ####[address] [address])[phone] Director: Ed Mcduffie DO MCH (RBC) [Entitic mass] 32.0 pg Normal 26-34 [facility] Comment on above: Performed By: #### B MP ####[address] [phone] Director: Melvin Santoyo MD#### CDP ####[address] [address])[phone] Director: Ed Mcduffie DO MCHC (RBC) [Mass/Vol] 33.7 g/dL Normal 31-37 [facility] Comment on above: Performed By: #### B MP ####[address] [phone] Director: Melvin Santoyo MD#### CDP ####[address] [phone] Director: Ed Mcduffie DO MCV (RBC) [Entitic vol] 94.9 fL Normal 80-100 [facility] Comment on above: Performed By: #### B MP ####[address] [phone] Director: Melvin Santoyo MD#### CDP ####[facility] Gfp2802 [place], [place] [phone] Director: Ed Mcduffie DO Monocytes (Bld) [#/Vol] 0.40 10*3/uL Normal 0.1-1.3 [facility] Comment on above: Performed By: #### B MP ####[address] [phone] Director: Melvin Santoyo MD#### CDP ####[address] [address])[phone] Director: Ed Mcduffie DO Monocytes/100 WBC (Bld) 6 % Normal 1-7 [facility] Comment on above: Performed By: #### B MP ####[address] [phone])[phone] Director: Melvin Santoyo MD#### CDP ####[facility] [address] [place] [address] [phone] Director: Ed Mcduffie DO Neutrophil (Seg) 51 % Normal 36-66 [facility] Comment on above: Performed By: #### B MP ####[address] [phone] Director: Melvin Santoyo MD#### CDP ####[facility] [address] [place] [address] [phone] Director: Ed Mcduffie DO Platelet mean volume (Bld) [Entitic vol] 7.7 fL Normal 6.0-12.0 [facility] Comment on above: Performed By: #### B MP ####[facility] [place], [place] [phone])[phone] Director: Melvin Santoyo MD#### CDP ####[facility] Thj57[address] [place], [place] [phone])[phone] Director: Ed Mcduffie DO Platelets (Bld) [#/Vol] 514 10*3/uL High 150-450 [facility] Comment on above: Performed By: #### B MP ####[address] [phone] Director: Melvin Santoyo MD#### CDP ####[facility] Kzb2496 [place], [place] [phone] Director: Ed Mcduffie DO RBC (Bld) [#/Vol] 3.82 10*6/uL Low 4.0-5.2 [facility] Comment on above: Performed By: #### B MP ####[address] [phone] Director: Melvin Santoyo MD#### CDP ####[facility] Bnn[address] [place], [place] [phone] Director: Ed Mcduffie DO WBC (Bld) [#/Vol] 7.0 10*3/uL Normal 3.5-11.0 [facility] Comment on above: Performed By: #### B MP ####[address] [phone] Director: Melvin Santoyo MD#### CDP ####[facility] Xfd9715 [place], [place] [phone] Director: Ed Mcduffie DO XR FOOT LEFT [...] Yusuf Singh MD 07/14/24 Final result Normal [facility] XR Foot - left 3 Viewson 1. Redemonstrated findings compatible with a Lisfranc ligament injury, with midfoot dislocation. 2. Fractures of the cuneiforms and 2nd metatarsal are better visualized on comparison CT. [facility] CONSOLIDATED EXAMINATION: THREE XRAY [...] and forefoot. No large ankle joint effusion. [facility] CONSOLIDATED Yusuf Singh MD [...] metatarsal are better visualized on comparison CT. [facility] Radiology Study observation (narrative) [facility] XR Foot - left 3 ViewsOrdere d By: Yusuf Singh on 07-14-2024 [facility] Work Phone: CT FOOT LEFT WO CONTRASTon [...] Sonia Farrell MD 07/13/24 Final result Normal [facility] CT Foot - left WO contraston 07-13-2024 1. Dislocation of the midfoot. 2. Fractures of the medial, middle and lateral cuneiforms. 3. Fracture of the proximal aspect of the 2nd metatarsal. 4. Small osseous fragments at the dorsal aspect of the 4th and 5th metatarsals. [facility] RIS CONSOLIDATED EXAMINATION: CT OF THE LEFT [...] by hemorrhage. Joint: Dislocation of the midfoot [facility] Sonia Farrell MD - 07/13/2024 EXAMINATION: [...] aspect of the 4th and 5th metatarsals. [facility] Radiology Study observation (narrative) [facility] CT Foot - left WO contrastOr dered By: Sonia Farrell on 07-13-2024 [facility] Work Phone: Glucose, Whole Bloodon 07-13 Glucose [Mass/Vol] 101 mg/dL High 74 - 100 mg/dL [facility] Interpretation and review of laboratory results Abnormal [facility] Glucose [Mass/Vol] 101 mg/dL High 74-100 [facility] XR FOOT LEFT (MIN 3 VIEWS)on [...] Vern Olivo MD 07/13/24 Final result Normal [facility] XR Foot - left 3 Viewson Widening of the space between the 1st and 2nd metatarsal base that may relate to a Lisfranc ligament injury and subsequent tarsometatarsal dislocation involving at least the 2nd digit. CT of the foot may be helpful in further characterization. Soft tissue swelling. [facility] RIS CONSOLIDATED EXAMINATION: THREE XRAY VIEWS OF [...] are maintained. There is soft tissue swelling. [facility] CONSOLIDATED Vern Olivo MD [...] helpful in further characterization. Soft tissue swelling. [facility] Radiology Study observation (narrative) Keagan Anaya [facility] XR Foot - left 3 ViewsOrdere d By: Vern Olivo on 07-13-2024 [facility] Work Phone: CT SINUS WO CONTRASTon 07-03 [...] Efra Sullivan MD 07/03/24 Final result Normal [facility] CT Sinuses WO contraston No evidence [...] intracranial contents demonstrate no gross acute abnormality. [facility] Efra Medrano MD - [...] abnormality. IMPRESSION: No evidence of acute sinusitis. [facility] CT Sinuses WO contrastOrdere d By: Efra Sullivan on 07-03-2024 [facility] Work Phone: Basic Metabolic Panelon 10-0 Anion gap [Moles/Vol] 13 mmol/L 9 - 16 mmol/L [facility] Calcium [Mass/Vol] 9.7 mg/dL 8.6 - 10. 4 mg/dL [facility] Chloride [Moles/Vol] 101 mmol/L 98 - 10 7 mmol/L [facility] CO2 [Moles/Vol] 23 mmol/L 20 - 31 mmol/L [facility] Creatinine [Mass/Vol] 1.4 mg/dL High 0.50 - 0.90 mg/dL [facility] Est, Glom Filt Rate 48 Low - PINF [facility] Comment on above: These results are not [...] 315 mg/dL High 74 - 99 mg/dL [facility] Interpretation and review of laboratory results Abnormal [facility] Potassium [Moles/Vol] 5.6 mmol/L High 3.7 - 5.3 mmol/L [facility] Sodium [Moles/Vol] 137 mmol/L 136 - 145 mmol/L [facility] Urea nitrogen [Mass/Vol] 29 mg/dL High 6 - 20 mg/dL [facility] Urea nitrogen/Creatinine [Mass ratio] 21 mg/mg High 9 - 20 [facility] Basic Metabolic Profon 07-02 Anion gap [Moles/Vol] 13 mmol/L Normal 9-16 [facility] Comment on above: Performed By: #### B MP #### [facility] [address] [place] [address] [employer] Operator: Phillip Camarena MD BUN/CRE Ratio 21 High 9-20 [facility] Comment on above: Performed By: #### B MP #### [facility] [address] [place] [address] [employer] Operator: Phillip Camarena MD Calcium [Mass/Vol] 9.7 mg/dL Normal 8.6-10.4 [facility] Comment on above: Performed By: #### B MP #### [facility] [address] [place], [place] [phone] [employer] Operator: Phillip Camarena MD Chloride [Moles/Vol] 101 mmol/L Normal 98-107 [facility] Comment on above: Performed By: #### B MP #### [facility] [address] [place] [address] [employer] Operator: Phillip Camarena MD CO2 [Moles/Vol] 23 mmol/L Normal 20-31 [facility] Comment on above: Performed By: #### B MP #### [facility] [address] [place], [place] [phone] [employer] Operator: Phillip Camarena MD Creatinine [Mass/Vol] 1.4 mg/dL High 0.50-0.90 [facility] Comment on above: Performed By: #### B MP #### [facility] [address] [place] [address] [employer] Operator: Phililp Camarena MD GFR/1.73 sq M.predicted among non-blacks MDRD (S/P/Bld) [Vol rate/Area] 48 mL/min/{1.73_m2} Low >60 [facility] Comment on above: Result Comment: These [...] secretion. Performed By: #### B MP #### [facility] [address] [place] [address] [employer] Operator: Phillip Camarena MD Glucose [Mass/Vol] 315 mg/dL High 74-99 [facility] Comment on above: Performed By: #### B MP #### [facility] [address] [place] [address] [employer] Operator: Phillip Camarena MD Potassium [Moles/Vol] 5.6 mmol/L High 3.7-5.3 [facility] Comment on above: Performed By: #### B MP #### [facility] [address] [place] [address] [employer] Operator: Phillip Camarena MD Sodium [Moles/Vol] 137 mmol/L Normal 136-145 [facility] Comment on above: Performed By: #### B MP #### [facility] [address] [place] [address] [employer] Operator: Phillip Camarena MD Urea nitrogen [Mass/Vol] 29 mg/dL High 6-20 [facility] Comment on above: Performed By: #### B MP #### [facility] [address] [place] [address] [place] [address] [employer] Operator: Phillip Camarena MD CT Sinuses WO contraston Radiology Study observation (narrative) [facility] Diabetic Office/Clinic Noteo n 06-12-2024 Diabetic Office/Clinic Note [facility] [address] [place], [place], [id number] Risa Warner 1975 [phone] CGM DEVICE: FreeStyle Kena 2 Start Date [...] by Rolan Dunn 06/12/24 14:10 EDT Normal [facility] Hemoglobin A1Con 06-09-2024 Glucose [Mass/Vol] 203 mg/dL Normal [facility] Comment on above: Result Comment: The ADA and AACC recommend providing the estimated average glucose result to permit better patient understanding of their HBA1c result. Performed By: #### G LYHGB #### [address] [place], [place] [phone] [employer] Operator: Melvin Santoyo MD #### TSHX #### [facility] [address] [place] [address] [employer] Operator: Phillip Camarena MD HbA1c (Bld) [Mass fraction] 8.7 % High 4.0-6.0 [facility] Comment on above: Performed By: #### G LYHGB #### [address] [place], [place] [id number] [employer] Operator: Melvin Santoyo MD #### TSHX #### [facility] [address] [place] [address] [employer] Operator: Phillip Camarena MD TSH w/reflex to FT4on 2023 Thyroid Stim. Horm. 0.62 uIU/mL Normal 0.27-4.20 [facility] Comment on above: Performed By: #### G LYHGB #### [address] [place] [address] [employer] Operator: Melvin Santoyo MD #### TSHX #### [facility] [address] [place] [address] [employer] Operator: Phillip Camarena MD TSH with Reflexon 06-08-2024 TSH Qn 0.62 m[IU]/L [facility] RNA Polymerase 3 IgGon 05-13 RNA Polymerase 3 IgG 4 Units Normal 0-19 [facility] Comment on above: Result Comment: (NOT E) [...] antibodies associated with SSc, including centromere, Scl-70, U3-ELECTRONIC PUBLICATIONS SPECIALIST, PM/Scl, or Th/To. Performed By: [email or web address] [address] [place] [address] Animal Surgeon: Jesus Angeles MD, PhD CLIA Number: [id number] Performed By: #### G LYHGB #### [employer] [facility] [address] [place] [address] [employer] Operator: Melvin Santoyo MD #### TSHX #### [facility] [address] [place] [address] [employer] Operator: Phillip Camarena MD Anti-Centromereon 05-10-2024 Anti-Centromere <0.4 Normal <7.0 [facility] Comment on above: Result Comment: Reference Range: <7.0 Negative 7.0-10.0 Equivocal >10.0 Positive Performed By: #### G LYHGB #### [address] [place] [address] [employer] Operator: Melvin Santoyo MD #### TSHX #### [address] [place] [place] [address] [employer] Operator: Phillip Camarena MD Anti-Sclerodermaon Anti-Scleroderma <0.6 Normal <7.0 [facility] Comment on above: Result Comment: Reference Range: <7.0 Negative 7.0-10.0 Equivocal >10.0 Positive Performed By: #### G LYHGB #### [address] [address] [employer] Operator: Melvin Santoyo MD #### TSHX #### [address] [place] [place] [address] [employer] Operator: Phillip Camarena MD Anti-R7HWIhi 3 Anti-U1RNP 1.0 U/mL Normal <5.0 [facility] Comment on above: Result Comment: Reference Range: <5.0 Negative 5.0-10.0 Equivocal >10.0 Positive Performed By: #### Deandra LYHGB #### [address] [address] [employer] Operator: Melvin Santoyo MD #### TSHX #### [address] [place] [place] [address] [employer] Operator: Phillip Camarena MD Thyroid Antibodieson 024 Anti-Thy Peroxidase <4.0 Normal 0.0-25.0 [facility] Comment on above: Result Comment: Reference Range: <25.0 Negative 25.0-35.0 Equivocal >35.0 Positive When results are Equivocal, it is recommended to retest after 8-12 weeks. Performed By: #### G LYHGB #### [address] [address] [employer] Operator: Melvin Santoyo MD #### TSHX #### [facility] [address] [place] [address] [employer] Operator: Phillip Camarena MD Thyroglobulin Ab Qn [IU]/mL Normal 0.0-40.0 [facility] Comment on above: Result Comment: Reference Range: <40.0 Negative 40.0-60.0 Equivocal >60.0 Positive When results are Equivocal, it is recommended to retest after 8-12 weeks. Performed By: #### G LYHGB #### [address] [place], [place] [phone] [employer] Operator: Melvin Santoyo MD #### TSHX #### [facility] [address] [place] [address] [place] [address] [employer] Operator: Phillip Camarena MD Creatine Kinaseon 05-08-2024 CK [Catalytic activity/Vol] 453 U/L High 26-192 [facility] Comment on above: Performed By: #### G LYHGB #### [address] [place] [address] [employer] Operator: Melvin Santoyo MD #### TSHX #### [facility] [address] [place] [address] [place] [address] [employer] Operator: Phillip Camarena MD Liver Profileon 04-12-2024 ALT [Catalytic activity/Vol] 20 U/L Normal 5-33 [facility] Comment on above: Performed By: #### L IVP #### [facility] [address] [place] [address] [place] [place], [place] [phone] [employer] Operator: Phillip Camarena MD AST [Catalytic activity/Vol] 17 U/L Normal <32 [facility] Comment on above: Performed By: #### L IVP #### [facility] [address] [place] [address] [employer] Operator: Phillip Camarena MD Albumin [Mass/Vol] 4.0 g/dL Normal 3.5-5.2 [facility] Comment on above: Performed By: #### L IVP #### [facility] [address] [place], [place] 9871483 [employer] Operator: Phillip Camarena MD Albumin/Glob Ratio 1.5 Normal 1.0-2.5 [facility] Comment on above: Performed By: #### L IVP #### [facility] [address] [place], [place] [phone] [employer] Operator: Phillip Camarena MD Alkaline Phos 51 U/L Normal 35-104 [facility] Comment on above: Performed By: #### L IVP #### [facility] [address] [place], [place] [phone] [employer] Operator: Phillip Camarena MD Bilirubin [Mass/Vol] 0.2 mg/dL Low 0.3-1.2 [facility] Comment on above: Performed By: #### L IVP #### [facility] [address] [place] [address] [place] [address] [employer] Operator: Phillip Camarena MD Bilirubin, Indirect Can not be calculated Normal 0.0-1.0 [facility] Comment on above: Performed By: #### L IVP #### [facility] [address] [place] [address] [place], [place] [phone] [employer] Operator: Phillip Camarena MD Bilirubin.indirect [Mass/Vol] mg/dL Normal <0.3 [facility] Comment on above: Performed By: #### L IVP #### [facility] [address] [place], [place] [phone] [employer] Operator: Phillip Camarena MD Protein [Mass/Vol] 6.7 g/dL Normal 6.4-8.3 [facility] Comment on above: Performed By: #### L IVP #### [facility] [address] [place], [place] [phone] [employer] Operator: Phillip Camarena MD Hemoglobin A1Con 03-24-2024 Glucose [Mass/Vol] 180 mg/dL Normal [facility] Comment on above: Result Comment: The ADA and AACC recommend providing the estimated average glucose result to permit better patient understanding of their HBA1c result. Performed By: #### G LYHGB #### [address] [id number] [employer] Operator: Melvin Santoyo MD #### TSHX #### [facility] [address] [place] [address] [employer] Operator: Phillip Camarena MD HbA1c (Bld) [Mass fraction] 7.9 % High 4.0-6.0 [facility] Comment on above: Performed By: #### G LYHGB #### [address] [id number] [employer] Operator: Melvin Santoyo MD #### TSHX #### [facility] [address] [place], [place] [phone] [employer] Operator: Phillip Camarena MD LDL Chol, Directon 4 LDL Chol, Direct 48 mg/dL Normal [facility] Comment on above: Performed By: #### L IPR, LDLDIR #### [address] [phone] [employer] Operator: Melvin Santoyo MD Lipid Profileon 03-24-2024 Cholesterol [Mass/Vol] 267 mg/dL High 0-199 [facility] Comment on above: Result Comment: Cholesterol Guidelines: <200 Desirable 200-240 Borderline >240 Undesirable Performed By: #### L IPR, LDLDIR #### [address] [id number] [employer] Operator: Melvin Santoyo MD Cholesterol in HDL [Mass/Vol] 16 mg/dL Low >40 [facility] Comment on above: Result Comment: HDL Guidelines: <40 Undesirable 40-59 Borderline >59 Desirable Performed By: #### L IPR, LDLDIR #### [facility] [employer] [facility] [place] [address] [employer] Operator: Melvin Santoyo MD Cholesterol,LDL Can not be calculated Normal 0-100 [facility] Comment on above: Result Comment: LDL Guidelines: <100 Desirable 100-129 Near to/above Desirable 130-159 Borderline >159 Undesirable Direct (measured) LDL and calculated LDL are not interchangeable tests. Performed By: #### L IPR, LDLDIR #### [facility] [employer] [address] [place] [address] [employer] Operator: Melvin Santoyo MD Cholesterol,VLDL Can not be calculated Normal [facility] Comment on above: Performed By: #### L IPR, LDLDIR #### [facility] [employer] [address] [place] [id number] [employer] Operator: Melvin Santoyo MD Cholesterol.total/Poppy sterol in HDL [Mass ratio] 17.0 {ratio} Normal [facility] Comment on above: Performed By: #### L IPR, LDLDIR #### [facility] [employer] [employer] [address] [place] [id number] [employer] Operator: Melvin Santoyo MD Triglyceride [Mass/Vol] 2042 mg/dL High <150 M [facility] Comment on above: Result Comment: Triglyceride Guidelines: <150 Desirable 150-199 Borderline 200-499 High >499 Very high Based on AHA Guidelines for fasting triglyceride, June 2012. Performed By: #### L IPR, LDLDIR #### [facility] [employer] [address] [place] [address] [employer] Operator: Melvin Santoyo MD Microalb.,Random Uron 2023 Creatinine [Mass/Vol] 78.9 mg/dL Normal 28.0-217.0 [facility] Comment on above: Performed By: #### U RNMAB #### [facility] [employer] [address] [place] [address] [employer] Operator: Melvin Santoyo MD Microalb/Creat Ratio Can not be calculated Normal 0.0-25.0 [facility] Comment on above: Performed By: #### U RNMAB #### [address] [address] [employer] Operator: Melvin Santoyo MD Microalbumin conc. <12 Normal 0-20 [facility] Comment on above: Performed By: #### U RNMAB #### [address] [address] [employer] Operator: Melvin Santoyo MD Farrukh 03-23-2024 ALT [Catalytic activity/Vol] 25 U/L Normal 5-33 [facility] Comment on above: Performed By: #### G LYHGB #### [address] [address] [employer] Operator: Melvin Santoyo MD #### TSHX #### [facility] [address] [place] [address] [employer] Operator: Phillip Camarena MD Fredy 9 AST [Catalytic activity/Vol] 30 U/L Normal <32 [facility] Comment on above: Performed By: #### B MP, AST, ALT #### [facility] [address] [place] [address] [employer] Operator: Phillip Camarena MD #### GLYHGB #### [address] [address] [employer] Operator: Melvin Santoyo MD Basic Metabolic Profon 03-237 Anion gap [Moles/Vol] 14 mmol/L Normal 9-17 [facility] Comment on above: Performed By: #### G LYHGB #### [address] [address] [employer] Operator: Melvin Santoyo MD #### TSHX #### [facility] [address] [place] [address] [employer] Operator: Phillip Camarena MD BUN/CRE Ratio 33 High 9-20 [facility] Comment on above: Performed By: #### G LYHGB #### [facility] [address] [place] [address] [employer] Operator: Melvin Santoyo MD #### TSHX #### [facility] [address] [place], [place] [phone] [employer] Operator: Phillip Camarena MD Calcium [Mass/Vol] 9.3 mg/dL Normal 8.6-10.4 [facility] Comment on above: Performed By: #### G LYHGB #### [address] [place] [address] [employer] Operator: Melvin Santoyo MD #### TSHX #### [facility] [address] [place] [id number] [employer] Operator: Phillip Camarena MD Chloride [Moles/Vol] 98 mmol/L Normal 98-107 [facility] Comment on above: Performed By: #### G LYHGB #### [facility] [address] [place] [address] [employer] Operator: Melvin Santoyo MD #### TSHX #### [facility] [address] [place], [place] [phone] [employer] Operator: Phillip Camarena MD CO2 [Moles/Vol] 23 mmol/L Normal 20-31 [facility] Comment on above: Performed By: #### G LYHGB #### [facility] [address] [place] [address] [employer] Operator: Melvin Santoyo MD #### TSHX #### [facility] [address] [place], [place] [phone] [employer] Operator: Phillip Camarena MD Creatinine [Mass/Vol] 1.1 mg/dL High 0.5-0.9 [facility] Comment on above: Performed By: #### G LYHGB #### [address] [address] [employer] Operator: Melvin Santoyo MD #### TSHX #### [facility] [address] [place], [place] [phone] [employer] Operator: Phillip Camarena MD GFR/1.73 sq M.predicted among non-blacks MDRD (S/P/Bld) [Vol rate/Area] 61 mL/min/{1.73_m2} Normal >60 [facility] Comment on above: Result Comment: These [...] secretion. Performed By: #### G LYHGB #### [address] [address] [employer] Operator: Melvin Santoyo MD #### TSHX #### [address] [place], [place] [phone] [employer] Operator: Phillip Camarena MD Glucose [Mass/Vol] 221 mg/dL High 70-99 [facility] Comment on above: Performed By: #### G LYHGB #### [address] [address] [employer] Operator: Melvin Santoyo MD #### TSHX #### [address] [place] [address] [employer] Operator: Phillip Camarena MD Potassium [Moles/Vol] 5.1 mmol/L Normal 3.7-5.3 [facility] Comment on above: Performed By: #### G LYHGB #### [address] [address] [employer] Operator: Melvin Santoyo MD #### TSHX #### [facility] [address] [place] [phone] [employer] Operator: Phillip Camarena MD Sodium [Moles/Vol] 135 mmol/L Normal 135-144 [facility] Comment on above: Performed By: #### G LYHGB #### [address] [address] [employer] Operator: Melvin Santoyo MD #### TSHX #### [facility] [address] [place] [address] [employer] Operator: Phillip Camarena MD Urea nitrogen [Mass/Vol] 36 mg/dL High 6-20 [facility] Comment on above: Performed By: #### G LYHGB #### [address] [address] [employer] Operator: Melvin Santoyo MD #### TSHX #### [facility] [address] [place] [address] [employer] Operator: Phillip Camarena MD Hemoglobin A1Con 03-06-2024 Glucose [Mass/Vol] 171 mg/dL Normal [facility] Comment on above: Result Comment: The ADA and AACC recommend providing the estimated average glucose result to permit better patient understanding of their HBA1c result. Performed By: #### G LYHGB #### [address] [address] [employer] Operator: Melvin Santoyo MD #### TSHX #### [facility] [address] [place] [address] [employer] Operator: Phillip Camarena MD HbA1c (Bld) [Mass fraction] 7.6 % High 4.0-6.0 [facility] Comment on above: Performed By: #### G LYHGB #### [address] [address] [employer] Operator: Melvin Santoyo MD #### TSHX #### [facility] [address] [place] [address] [employer] Operator: Phillip Camarena MD XR Chest 2 Viewson No radiographic evidence of acute cardiopulmonary disease. [facility] RIS CONSOLIDATED EXAMINATION: TWO XRAY VIEWS OF THE CHEST 12/07/2023 12:58 pm COMPARISON: None. HISTORY: ORDERING SYSTEM PROVIDED HISTORY: Lower leg edema FINDINGS: The lungs appear clear. The heart and mediastinal structures are unremarkable. Bony thorax appears normal. Visualized upper abdomen is unremarkable. [facility] RIS CONSOLIDATED Jesus Otero MD - 12/07/2023 EXAMINATION: TWO XRAY VIEWS OF THE CHEST 12/07/2023 12:58 pm COMPARISON: None. HISTORY: ORDERING SYSTEM PROVIDED HISTORY: Lower leg edema FINDINGS: The lungs appear clear. The heart and mediastinal structures are unremarkable. Bony thorax appears normal. Visualized upper abdomen is unremarkable. IMPRESSION: No radiographic evidence of acute cardiopulmonary disease. [facility] Radiology Study observation (narrative) [facility] XR Chest 2 ViewsOrdered By: Jesus Otero on 12-07-2023 [facility] Work Phone: CBC with Auto Differentialon 06-16-2023 Basophils (Bld) [#/Vol] 0.00 10*3/uL [facility] Basophils/100 WBC (Bld) 0 % 0 - 2 % B ON [facility] Eosinophils (Bld) [#/Vol] 0.00 10*3/uL [facility] Eosinophils/100 WBC (Bld) 0 % Low 1 - 4 % [facility] Erythrocyte distribution width (RBC) [Ratio] 13.1 % 11.8 - 14.4 % [facility] Hematocrit (Bld) [Volume fraction] 44.3 % 36.3 - 47.1 % [facility] Hemoglobin (Bld) [Mass/Vol] 14.6 g/dL 11.9 - 15.1 g/dL [facility] Immature granulocytes (Bld) [#/Vol] 0.25 10*3/uL [facility] Immature granulocytes/100 WBC (Bld) 2 % High 0 [facility] Interpretation and review of laboratory results Abnormal [facility] Lymphocytes/100 WBC (Bld) 20 % Low 24 - 43 % [facility] Lymphocytes/100 WBC (Bld) 2.46 % [facility] MCH (RBC) [Entitic mass] 31.3 pg 25.2 - 33.5 pg [facility] MCHC (RBC) [Mass/Vol] 33.0 g/dL 28.4 - 34.8 g/dL [facility] MCV (RBC) [Entitic vol] 95.1 fL 82.6 - 102.9 fL [facility] Monocytes/100 WBC (Bld) 6 % 3 - 12 % B ON [facility] Monocytes/100 WBC (Bld) 0.74 % B ON [facility] Morphology Alejo (Bld) [Interp] ANISOCYTOSIS PRESENT [facility] Neutrophils/100 WBC (Bld) 72 % High 36 - 65 % [facility] Nucleated RBC/100 WBC (Bld) [Ratio] 0.0 % 0.0 per 100 WBC [facility] Platelet mean volume (Bld) [Entitic vol] 8.8 fL 8.1 - 13.5 fL [facility] Platelets (Bld) [#/Vol] 438 10*3/uL [facility] RBC (Bld) [#/Vol] 4.66 10*6/uL 3.95 - 5.1 1 m/uL [facility] Segmented neutrophils/100 WBC (Bld) 8.85 % High [facility] WBC other (Bld) [#/Vol] 12.3 High B ON [facility] CT Head WO Contraston 2022 No [...] is intact. Extracranial soft tissues are unremarkable. [facility] Brandon Berg MD - 06/16/2023 EXAMINATION: CT OF THE [...] unremarkable. IMPRESSION: No acute intracranial abnormality. [facility] Radiology Study observation (narrative) [facility] CT Head WO ContrastOrdered B y: Brandon Morfin on 06-16-2023 [facility] Work Phone: Comprehensive Metabolic Pane yamilet 06-16-2023 Albumin [Mass/Vol] 4.5 g/dL 3.5 - 5.2 g/dL [facility] Albumin/Globulin [Mass ratio] 1.4 {ratio} 1.0 - 2.5 [facility] ALP [Catalytic activity/Vol] 59 U/L 35 - 104 U/L [facility] ALT [Catalytic activity/Vol] 30 U/L 5 - 33 U/L [facility] Anion gap [Moles/Vol] 10 mmol/L 9 - 17 mmol/L [facility] AST [Catalytic activity/Vol] 33 U/L High NINF - 32 U/L [facility] Bilirubin [Mass/Vol] 0.3 mg/dL 0.3 - 1 .2 mg/dL [facility] Calcium [Mass/Vol] 9.9 mg/dL 8.6 - 10. 4 mg/dL [facility] Chloride [Moles/Vol] 99 mmol/L 98 - 10 7 mmol/L [facility] CO2 [Moles/Vol] 26 mmol/L 20 - 31 mmol/L [facility] Creatinine [Mass/Vol] 1.0 mg/dL High 0.5 - 0.9 mg/dL [facility] GFR/1.73 sq M.predicted MDRD (S/P/Bld) [Vol rate/Area] [facility] Comment on above: These results are [...] mg/dL High 70 - 99 mg/dL [facility] Interpretation and review of laboratory results Abnormal [facility] Potassium [Moles/Vol] 5.0 mmol/L 3.7 - 5.3 mmol/L [facility] Protein [Mass/Vol] 7.8 g/dL 6.4 - 8.3 g/dL [facility] Sodium [Moles/Vol] 135 mmol/L 135 - 144 mmol/L [facility] Urea nitrogen [Mass/Vol] 29 mg/dL High 6 - 20 mg/dL [facility] Urea nitrogen/Creatinine [Mass ratio] 29 mg/mg High 9 - 20 [facility] Troponinon 06-16-2023 Interpretation and review of laboratory results Abnormal [facility] Troponin I.cardiac High sensitivity method [Mass/Vol] 15 ng/L High 0 - 14 ng/L [facility] Comment on above: High Sensitivity Tro ponin values cannot be compared with other Troponin methodologies. [facility] XR CHEST PORTABLEon 06-16-20 23 Mild prominence of pulmonary vasculature and interstitium related to technique versus developing pulmonary edema. [facility] CONSOLIDATED EXAMINATION: ONE XRAY VIEW OF THE CHEST 06/16/2023 6:31 pm COMPARISON: June 10, 2023 and additional prior exams. HISTORY: ORDERING SYSTEM PROVIDED HISTORY: Syncope TECHNOLOGIST PROVIDED HISTORY: Syncope FINDINGS: Mild increased prominence of the pulmonary vasculature and interstitium. No pleural effusion or pneumothorax identified. Cardiac and mediastinal silhouettes are within normal limits. No acute osseous abnormality identified. [facility] CONSOLIDATED Jason Long MD [...] to technique versus developing pulmonary edema. [facility] Radiology Study observation (narrative) [facility] XR CHEST PORTABLEOrdered By: Jason Long on 06-16-2023 [facility] Work Phone: Basic Metabolic Panel w/ Ref kartik to MGon 06-14-2023 Anion gap [Moles/Vol] 11 mmol/L 9 - 17 mmol/L [facility] Calcium [Mass/Vol] 9.9 mg/dL 8.6 - 10. 4 mg/dL [facility] Chloride [Moles/Vol] 98 mmol/L 98 - 10 7 mmol/L [facility] CO2 [Moles/Vol] 26 mmol/L 20 - 31 mmol/L [facility] Creatinine [Mass/Vol] 0.9 mg/dL 0.5 - 0.9 mg/dL [facility] GFR/1.73 sq M.predicted MDRD (S/P/Bld) [Vol rate/Area] - PINF [facility] Comment on above: These results are [...] mg/dL High 70 - 99 mg/dL [facility] Interpretation and review of laboratory results Abnormal [facility] Potassium [Moles/Vol] 4.4 mmol/L 3.7 - 5.3 mmol/L [facility] Sodium [Moles/Vol] 135 mmol/L 135 - 144 mmol/L [facility] Urea nitrogen [Mass/Vol] 30 mg/dL High 6 - 20 mg/dL [facility] Urea nitrogen/Creatinine [Mass ratio] 33 mg/mg High 9 - 20 [facility] CBC auto differentialon 05-27 Basophils (Bld) [#/Vol] 0.03 10*3/uL [facility] Basophils/100 WBC (Bld) 0 % 0 - 2 % B [facility] Eosinophils (Bld) [#/Vol] [facility] Eosinophils/100 WBC (Bld) 0 % Low 1 - 4 % [facility] Erythrocyte distribution width (RBC) [Ratio] 13.4 % 11.8 - 14.4 % [facility] Hematocrit (Bld) [Volume fraction] 35.7 % Low 36.3 - 47.1 % [facility] Hemoglobin (Bld) [Mass/Vol] 11.5 g/dL Low 11.9 - 15.1 g/dL [facility] Immature granulocytes (Bld) [#/Vol] 0.32 10*3/uL High [facility] Immature granulocytes/100 WBC (Bld) 3 % High 0 [facility] Interpretation and review of laboratory results Abnormal [facility] Lymphocytes/100 WBC (Bld) 16 % Low 24 - 43 % [facility] Lymphocytes/100 WBC (Bld) 1.82 % [facility] MCH (RBC) [Entitic mass] 31.1 pg 25.2 - 33.5 pg [facility] MCHC (RBC) [Mass/Vol] 32.2 g/dL 28.4 - 34.8 g/dL [facility] MCV (RBC) [Entitic vol] 96.5 fL 82.6 - 102.9 fL [facility] Monocytes/100 WBC (Bld) 5 % 3 - 12 % B [facility] Monocytes/100 WBC (Bld) 0.52 % B ON [facility] Neutrophils/100 WBC (Bld) 77 % High 36 - 65 % [facility] Nucleated RBC/100 WBC (Bld) [Ratio] 0.0 % 0.0 per 100 WBC [facility] Platelet mean volume (Bld) [Entitic vol] 9.2 fL 8.1 - 13.5 fL [facility] Platelets (Bld) [#/Vol] 355 10*3/uL [facility] RBC (Bld) [#/Vol] 3.70 10*6/uL Low 3.95 - 5.1 1 m/uL [facility] Segmented neutrophils/100 WBC (Bld) 8.74 % High [facility] WBC other (Bld) [#/Vol] 11.4 High B [facility] Glucose, Whole Bloodon 06-14 Glucose [Mass/Vol] 228 mg/dL High 74 - 100 mg/dL [facility] Interpretation and review of laboratory results Abnormal [facility] Glucose [Mass/Vol] 167 mg/dL High 74 - 100 mg/dL [facility] Interpretation and review of laboratory results Abnormal [facility] Basic Metabolic Panel w/ Ref kartik to MGon 06-13-2023 Anion gap [Moles/Vol] 12 mmol/L 9 - 17 mmol/L [facility] Calcium [Mass/Vol] 9.7 mg/dL 8.6 - 10. 4 mg/dL [facility] Chloride [Moles/Vol] 103 mmol/L 98 - 10 7 mmol/L [facility] CO2 [Moles/Vol] 23 mmol/L 20 - 31 mmol/L [facility] Creatinine [Mass/Vol] 0.7 mg/dL 0.5 - 0.9 mg/dL [facility] GFR/1.73 sq M.predicted MDRD (S/P/Bld) [Vol rate/Area] - PINF [facility] Comment on above: These results are [...] mg/dL High 70 - 99 mg/dL [facility] Interpretation and review of laboratory results Abnormal [facility] Potassium [Moles/Vol] 4.3 mmol/L 3.7 - 5.3 mmol/L [facility] Sodium [Moles/Vol] 138 mmol/L 135 - 144 mmol/L [facility] Urea nitrogen [Mass/Vol] 28 mg/dL High 6 - 20 mg/dL [facility] Urea nitrogen/Creatinine [Mass ratio] 40 mg/mg High 9 - 20 [facility] CBC auto differentialon 05-27 Basophils (Bld) [#/Vol] B ON [facility] Basophils/100 WBC (Bld) 0 % 0 - 2 % B ON [facility] Eosinophils (Bld) [#/Vol] [facility] Eosinophils/100 WBC (Bld) 0 % Low 1 - 4 % [facility] Erythrocyte distribution width (RBC) [Ratio] 13.6 % 11.8 - 14.4 % [facility] Hematocrit (Bld) [Volume fraction] 38.0 % 36.3 - 47.1 % [facility] Hemoglobin (Bld) [Mass/Vol] 12.2 g/dL 11.9 - 15.1 g/dL [facility] Immature granulocytes (Bld) [#/Vol] 0.24 10*3/uL [facility] Immature granulocytes/100 WBC (Bld) 2 % High 0 [facility] Interpretation and review of laboratory results Abnormal [facility] Lymphocytes/100 WBC (Bld) 14 % Low 24 - 43 % [facility] Lymphocytes/100 WBC (Bld) 1.87 % [facility] MCH (RBC) [Entitic mass] 31.2 pg 25.2 - 33.5 pg [facility] MCHC (RBC) [Mass/Vol] 32.1 g/dL 28.4 - 34.8 g/dL [facility] MCV (RBC) [Entitic vol] 97.2 fL 82.6 - 102.9 fL [facility] Monocytes/100 WBC (Bld) 5 % 3 - 12 % B [facility] Monocytes/100 WBC (Bld) 0.60 % B ON [facility] Neutrophils/100 WBC (Bld) 80 % High 36 - 65 % [facility] Nucleated RBC/100 WBC (Bld) [Ratio] 0.0 % 0.0 per 100 WBC [facility] Platelet mean volume (Bld) [Entitic vol] 9.5 fL 8.1 - 13.5 fL [facility] Platelets (Bld) [#/Vol] 226 10*3/uL [facility] RBC (Bld) [#/Vol] 3.91 10*6/uL Low 3.95 - 5.1 1 m/uL [facility] Segmented neutrophils/100 WBC (Bld) 10.70 % High [facility] WBC other (Bld) [#/Vol] 13.4 High B [address] [facility] EKG Rhythm Stripon [address] [facility] Glucose, Whole Bloodon 06-13 Glucose [Mass/Vol] 207 mg/dL High 74 - 100 mg/dL [facility] Interpretation and review of laboratory results Abnormal [facility] Glucose [Mass/Vol] 217 mg/dL High 74 - 100 mg/dL [facility] Interpretation and review of laboratory results Abnormal [facility] Glucose [Mass/Vol] 197 mg/dL High 74 - 100 mg/dL [facility] Interpretation and review of laboratory results Abnormal [facility] Glucose [Mass/Vol] 180 mg/dL High 74 - 100 mg/dL [facility] Interpretation and review of laboratory results Abnormal [facility] Basic Metabolic Panel w/ Ref kartik to MGon 06-12-2023 Anion gap [Moles/Vol] 12 mmol/L [facility] Calcium [Mass/Vol] 9.3 mg/dL 8.6 - 10. 4 mg/dL [facility] Chloride [Moles/Vol] 99 mmol/L 98 - 10 7 mmol/L [facility] CO2 [Moles/Vol] 24 mmol/L 20 - 31 mmol/L [facility] Creatinine [Mass/Vol] 0.8 mg/dL 0.5 - 0.9 mg/dL [facility] GFR/1.73 sq M.predicted MDRD (S/P/Bld) [Vol rate/Area] - PINF [facility] Comment on above: These results are [...] mg/dL High 70 - 99 mg/dL [facility] Interpretation and review of laboratory results Abnormal [facility] Potassium [Moles/Vol] 4.7 mmol/L 3.7 - 5.3 mmol/L [facility] Sodium [Moles/Vol] 135 mmol/L 135 - 144 mmol/L [facility] Urea nitrogen [Mass/Vol] 23 mg/dL High 6 - 20 mg/dL [facility] Urea nitrogen/Creatinine [Mass ratio] 29 mg/mg High 9 - 20 [facility] CBC auto differentialon 05-27 Basophils (Bld) [#/Vol] 0.04 10*3/uL [facility] Basophils/100 WBC (Bld) 0 % 0 - 2 % B [facility] Eosinophils (Bld) [#/Vol] [facility] Eosinophils/100 WBC (Bld) 0 % Low 1 - 4 % [facility] Erythrocyte distribution width (RBC) [Ratio] 13.7 % 11.8 - 14.4 % [facility] Hematocrit (Bld) [Volume fraction] 34.5 % Low 36.3 - 47.1 % [facility] Hemoglobin (Bld) [Mass/Vol] 11.2 g/dL Low 11.9 - 15.1 g/dL [facility] Immature granulocytes (Bld) [#/Vol] 0.18 10*3/uL [facility] Immature granulocytes/100 WBC (Bld) 1 % High 0 [facility] Interpretation and review of laboratory results Abnormal [facility] Lymphocytes/100 WBC (Bld) 10 % Low 24 - 43 % [facility] Lymphocytes/100 WBC (Bld) 1.59 % [facility] MCH (RBC) [Entitic mass] 31.6 pg 25.2 - 33.5 pg [facility] MCHC (RBC) [Mass/Vol] 32.5 g/dL 28.4 - 34.8 g/dL [facility] MCV (RBC) [Entitic vol] 97.5 fL 82.6 - 102.9 fL [facility] Monocytes/100 WBC (Bld) 2 % Low 3 - 12 % B ON [facility] Monocytes/100 WBC (Bld) 0.30 % B ON [facility] Neutrophils/100 WBC (Bld) 87 % High 36 - 65 % [facility] Nucleated RBC/100 WBC (Bld) [Ratio] 0.0 % 0.0 per 100 WBC [facility] Platelet mean volume (Bld) [Entitic vol] 10.6 fL 8.1 - 13.5 fL [facility] Platelets (Bld) [#/Vol] 367 10*3/uL [facility] RBC (Bld) [#/Vol] 3.54 10*6/uL Low 3.95 - 5.1 1 m/uL [facility] Segmented neutrophils/100 WBC (Bld) 14.32 % High [facility] WBC other (Bld) [#/Vol] 16.4 High B [address] [facility] EKG Rhythm Stripon [address] [facility] Glucose, Whole Bloodon 06-12 Glucose [Mass/Vol] 175 mg/dL High 74 - 100 mg/dL [facility] Interpretation and review of laboratory results Abnormal [facility] Glucose [Mass/Vol] 567 mg/dL Critically high 74 - 1 00 mg/dL [facility] Interpretation and review of laboratory results Abnormal [facility] Glucose [Mass/Vol] 199 mg/dL High 74 - 100 mg/dL [facility] Interpretation and review of laboratory results Abnormal [facility] Glucose [Mass/Vol] 249 mg/dL High 74 - 100 mg/dL [facility] Interpretation and review of laboratory results Abnormal [facility] Glucose [Mass/Vol] 283 mg/dL High 74 - 100 mg/dL [facility] Interpretation and review of laboratory results Abnormal [facility] Basic Metabolic Panel w/ Ref kartik to MGon 06-11-2023 Anion gap [Moles/Vol] 10 mmol/L 9 - 17 mmol/L [facility] Calcium [Mass/Vol] 9.1 mg/dL 8.6 - 10. 4 mg/dL [facility] Chloride [Moles/Vol] 105 mmol/L 98 - 10 7 mmol/L [facility] CO2 [Moles/Vol] 26 mmol/L 20 - 31 mmol/L [facility] Creatinine [Mass/Vol] 1.0 mg/dL High 0.5 - 0.9 mg/dL [facility] GFR/1.73 sq M.predicted MDRD (S/P/Bld) [Vol rate/Area] - PINF [facility] Comment on above: These results are [...] mg/dL High 70 - 99 mg/dL [facility] Interpretation and review of laboratory results Abnormal [facility] Potassium [Moles/Vol] 4.7 mmol/L 3.7 - 5.3 mmol/L [facility] Sodium [Moles/Vol] 141 mmol/L 135 - 144 mmol/L [facility] Urea nitrogen [Mass/Vol] 13 mg/dL 6 - 20 mg/dL [facility] Urea nitrogen/Creatinine [Mass ratio] 13 mg/mg 9 - 20 [facility] Brain Natriuretic Peptideon 06-11-2023 Natriuretic peptide B (Bld) [Mass/Vol] 74 pg/mL NINF - 300 pg/mL [facility] Comment on above: An age-independent cutoff point of 300 pg/ml has a 98% negative predictive value excluding acute heart failure. [facility] CBC auto differentialon 05-27 Basophils (Bld) [#/Vol] 0.06 10*3/uL [facility] Basophils/100 WBC (Bld) 1 % 0 - 2 % B ON [facility] Eosinophils (Bld) [#/Vol] 0.34 10*3/uL [facility] Eosinophils/100 WBC (Bld) 3 % 1 - 4 % [facility] Erythrocyte distribution width (RBC) [Ratio] 14.0 % 11.8 - 14.4 % [facility] Hematocrit (Bld) [Volume fraction] 37.6 % 36.3 - 47.1 % [facility] Hemoglobin (Bld) [Mass/Vol] 12.0 g/dL 11.9 - 15.1 g/dL [facility] Immature granulocytes (Bld) [#/Vol] 0.12 10*3/uL [facility] Immature granulocytes/100 WBC (Bld) 1 % High 0 [facility] Interpretation and review of laboratory results Abnormal [facility] Lymphocytes/100 WBC (Bld) 20 % Low 24 - 43 % [facility] Lymphocytes/100 WBC (Bld) 2.45 % [facility] MCH (RBC) [Entitic mass] 31.6 pg 25.2 - 33.5 pg [facility] MCHC (RBC) [Mass/Vol] 31.9 g/dL 28.4 - 34.8 g/dL [facility] MCV (RBC) [Entitic vol] 98.9 fL 82.6 - 102.9 fL [facility] Monocytes/100 WBC (Bld) 2 % Low 3 - 12 % B ON [facility] Monocytes/100 WBC (Bld) 0.30 % B ON [facility] Neutrophils/100 WBC (Bld) 73 % High 36 - 65 % [facility] Nucleated RBC/100 WBC (Bld) [Ratio] 0.0 % 0.0 per 100 WBC [facility] Platelet mean volume (Bld) [Entitic vol] 9.4 fL 8.1 - 13.5 fL [facility] Platelets (Bld) [#/Vol] 297 10*3/uL [facility] RBC (Bld) [#/Vol] 3.80 10*6/uL Low 3.95 - 5.1 1 m/uL [facility] Segmented neutrophils/100 WBC (Bld) 9.30 % High [facility] WBC other (Bld) [#/Vol] 12.6 High B [address] [facility] EKG 12 Leadon 06-11-2023 Atrial Rate 95 BPM [facility] P Lamar 53 degrees [facility] P-R Interval 156 ms [facility] Q-T Interval 358 ms [facility] QRS Duration 88 ms [facility] QTc Calculation (Bazett) 449 ms [facility] R Lamar 19 degrees [facility] T Lamar 54 degrees [facility] Ventricular Rate 95 BPM [facility] Normal sinus rhythm Normal ECG When compared with ECG of 06-AUG-2022 17:11, No significant change was found Confirmed by Nathan Ardon MD ([id number]) on 06/11/2023 4:31:21 PM [facility] Nathan Ardon MD - 06/11/2023 Normal sinus rhythm Normal ECG When compared with ECG of 06-AUG-2022 17:11, No significant change was found Confirmed by Nathan Ardon MD ([id number]) on 06/11/2023 4:31:21 PM [facility] EKG Rhythm Stripon [address] [facility] Glucose, Whole Bloodon 06-11 Glucose [Mass/Vol] 407 mg/dL High 74 - 100 mg/dL [facility] Interpretation and review of laboratory results Abnormal [facility] Glucose [Mass/Vol] 473 mg/dL High 74 - 100 mg/dL [facility] Interpretation and review of laboratory results Abnormal [facility] Glucose [Mass/Vol] 336 mg/dL High 74 - 100 mg/dL [facility] Interpretation and review of laboratory results Abnormal [facility] Glucose [Mass/Vol] 168 mg/dL High 74 - 100 mg/dL [facility] Interpretation and review of laboratory results Abnormal [facility] Lactate, Sepsison 06-11-2023 Lactate (BldV) [Moles/Vol] 1.7 mmol/L 0.5 - 1.9 mmol/L [facility] Lactate (BldV) [Moles/Vol] 1.7 mmol/L 0.5 - 1.9 mmol/L [facility] Procalcitoninon 06-11-2023 Procalcitonin [Mass/Vol] 0.07 ng/mL [facility] 0.09 ng/mL [facility] Comment on above: Suspected Sepsis: <0.50 [...] entered into the Change in Procalcitonin Calculator (www.hawjif-okv-xktbndtyem.[employer]) to determine the patient's Mortality Risk Prognosis In healthy neonates, plasma Procalcitonin (PCT) concentrations increase gradually after , reaching peak values at about 24 hours of age then decrease to normal values below 0.5 ng/mL by 48-72 hours of age. [facility] Troponinon 06-11-2023 Interpretation and review of laboratory results Abnormal [facility] Troponin I.cardiac High sensitivity method [Mass/Vol] 26 ng/L High 0 - 14 ng/L [facility] Comment on above: High Sensitivity Tro ponin values cannot be compared with other Troponin methodologies. [facility] CBC with Auto Differentialon 06-10-2023 Basophils (Bld) [#/Vol] 0.07 10*3/uL [facility] Basophils/100 WBC (Bld) 1 % 0 - 2 % B ON [facility] Eosinophils (Bld) [#/Vol] 0.40 10*3/uL [facility] Eosinophils/100 WBC (Bld) 5 % High 1 - 4 % [facility] Erythrocyte distribution width (RBC) [Ratio] 14.0 % 11.8 - 14.4 % [facility] Hematocrit (Bld) [Volume fraction] 41.8 % 36.3 - 47.1 % [facility] Hemoglobin (Bld) [Mass/Vol] 13.3 g/dL 11.9 - 15.1 g/dL [facility] Immature granulocytes (Bld) [#/Vol] 0.16 10*3/uL [facility] Immature granulocytes/100 WBC (Bld) 2 % High 0 [facility] Interpretation and review of laboratory results Abnormal [facility] Lymphocytes/100 WBC (Bld) 34 % 24 - 43 % [facility] Lymphocytes/100 WBC (Bld) 2.92 % [facility] MCH (RBC) [Entitic mass] 31.4 pg 25.2 - 33.5 pg [facility] MCHC (RBC) [Mass/Vol] 31.8 g/dL 28.4 - 34.8 g/dL [facility] MCV (RBC) [Entitic vol] 98.6 fL 82.6 - 102.9 fL [facility] Monocytes/100 WBC (Bld) 8 % 3 - 12 % B ON [facility] Monocytes/100 WBC (Bld) 0.67 % B ON [facility] Neutrophils/100 WBC (Bld) 50 % 36 - 65 % [facility] Nucleated RBC/100 WBC (Bld) [Ratio] 0.0 % 0.0 per 100 WBC [facility] Platelet mean volume (Bld) [Entitic vol] 9.1 fL 8.1 - 13.5 fL [facility] Platelets (Bld) [#/Vol] 370 10*3/uL [facility] RBC (Bld) [#/Vol] 4.24 10*6/uL 3.95 - 5.1 1 m/uL [facility] Segmented neutrophils/100 WBC (Bld) 4.33 % [facility] WBC other (Bld) [#/Vol] 8.[address] [facility] CMPon 06-10-2023 Albumin [Mass/Vol] 4.7 g/dL 3.5 - 5.2 g/dL [facility] Albumin/Globulin [Mass ratio] 1.6 {ratio} 1.0 - 2.5 [facility] ALP [Catalytic activity/Vol] 71 U/L 35 - 104 U/L [facility] ALT [Catalytic activity/Vol] 33 U/L 5 - 33 U/L [facility] Anion gap [Moles/Vol] 10 mmol/L 9 - 17 mmol/L [facility] AST [Catalytic activity/Vol] 33 U/L High NINF - 32 U/L [facility] Bilirubin [Mass/Vol] 0.2 mg/dL Low 0.3 - 1 .2 mg/dL [facility] Calcium [Mass/Vol] 10.2 mg/dL 8.6 - 10. 4 mg/dL [facility] Chloride [Moles/Vol] 98 mmol/L 98 - 10 7 mmol/L [facility] CO2 [Moles/Vol] 31 mmol/L 20 - 31 mmol/L [facility] Creatinine [Mass/Vol] 1.1 mg/dL High 0.5 - 0.9 mg/dL [facility] GFR/1.73 sq M.predicted MDRD (S/P/Bld) [Vol rate/Area] - PINF [facility] Comment on above: These results are [...] mg/dL High 70 - 99 mg/dL [facility] Interpretation and review of laboratory results Abnormal [facility] Potassium [Moles/Vol] 4.2 mmol/L 3.7 - 5.3 mmol/L [facility] Protein [Mass/Vol] 7.7 g/dL 6.4 - 8.3 g/dL [facility] Sodium [Moles/Vol] 139 mmol/L 135 - 144 mmol/L [facility] Urea nitrogen [Mass/Vol] 15 mg/dL 6 - 20 mg/dL [facility] Urea nitrogen/Creatinine [Mass ratio] 14 mg/mg 9 - 20 [facility] COVID-19, Rapidon 06-10-2023 SARS-CoV-2 (COVID-19) RdRp gene ASHLEY+probe Ql (Resp) Not detected Not Detected [facility] Comment on above: Rapid NAAT: The [...] management decisions. Fact sheet for Healthcare Providers: https://www.fda.gov/media/499618/download Fact sheet for Patients: https://www.fda.gov/media/534054/download Methodology: Isothermal Nucleic Acid Amplification Specimen Description .NASOPHARYNGEAL SWAB [facility] CT CERVICAL SPINE WO CONTRAS Ton 06-10-2023 1. No acute traumatic abnormality involving the cervical spine. [facility] RIS CONSOLIDATED EXAMINATION: CT OF THE [...] There is no prevertebral soft tissue swelling. [facility] CONSOLIDATED Niles Barbosa MD [...] traumatic abnormality involving the cervical spine. [facility] Radiology Study observation (narrative) [facility] CT CERVICAL SPINE WO CONTRAS TOrdered By: Niles Barbosa on 06-10-2023 [facility] Work Phone: CT CHEST PULMONARY EMBOLISM W CONTRASTon 06-10-2023 Mild nonspecific bibasilar interstitial infiltrates. Coronary artery disease. [facility] CONSOLIDATED EXAMINATION: CTA OF [...] No acute bone or soft tissue abnormality. [facility] CONSOLIDATED Zak Duque MD [...] nonspecific bibasilar interstitial infiltrates. Coronary artery disease. [facility] Radiology Study observation (narrative) [facility] CT Head WO Contraston 2022 No [...] of the visualized skull or soft tissues. [facility] Zak Duque MD - 06/10/2023 EXAMINATION: [...] tissues. IMPRESSION: No acute intracranial abnormality. [facility] Radiology Study observation (narrative) [facility] CT Head WO ContrastOrdered B y: Zak Duque on 06-10-2023 [facility] Work Phone: Magnesiumon 06-10-2023 Magnesium [Mass/Vol] 2.0 mg/dL 1.6 - 2 .6 mg/dL [facility] No Panel Informationon 06-10 [facility] Troponinon 06-10-2023 Interpretation and review of laboratory results Abnormal [facility] Troponin I.cardiac High sensitivity method [Mass/Vol] 27 ng/L High 0 - 14 ng/L [facility] Comment on above: High Sensitivity Tro ponin values cannot be compared with other Troponin methodologies. [facility] XR CHEST (2 VW)on 06-10-2023 No acute process. [facility] CONSOLIDATED EXAMINATION: TWO XRAY VIEWS OF THE CHEST 06/10/2023 9:33 pm COMPARISON: None. HISTORY: ORDERING SYSTEM PROVIDED HISTORY: Cough x1wk TECHNOLOGIST PROVIDED HISTORY: Cough x1wk FINDINGS: The lungs are without acute focal process. There is no effusion or pneumothorax. The cardiomediastinal silhouette is without acute process. The osseous structures are without acute process. [facility] CONSOLIDATED Zak Duque MD [...] without acute process. IMPRESSION: No acute process. [facility] Radiology Study observation (narrative) [facility] POINT OF CARE GLUCOSEon - Glucose [Mass/Vol] 136 mg/dL Critically high 74-106 T [facility] Comment on above: Performed By: #### P OCGLUC #### [facility] [address] [address] [address] Chidi Reyes POINT OF CARE GLUCOSEon - Glucose [Mass/Vol] 129 mg/dL Critically high 74-106 T [facility] Comment on above: Performed By: #### P OCGLUC #### [facility] [address] [address] [address] Chidi Reyes MRI THORACIC SPINE WO CONTRA STon 12-28-2022 No acute abnormality in the thoracic spine. No significant spinal canal or neural foraminal narrowing. [facility] CONSOLIDATED EXAMINATION: MRI OF [...] neural foraminal narrowing of the thoracic spine. [facility] CONSOLIDATED [place], DO Shabbir [...] significant spinal canal or neural foraminal narrowing. [employer] Phone: Radiology Study observation (narrative) KEAGAN ANAYA [employer] Work Phone: MRI THORACIC SPINE WO CONTRA STOrdered By: Shabbir Weaver on 12-28-2022 [employer] Phone: Colonoscopy studyon 12-09-19 No dictation [employer] Phone: Colonoscopy studyOrdered By: User Epic on 12-08-2022 [facility]: Glucose, Whole Bloodon 12-08 Glucose [Mass/Vol] 117 mg/dL High 74 - 100 mg/dL [facility] eeden Interpretation and review of laboratory results Abnormal [facility] XR TSPINE 2 VIEWSon 12-02-19 23 [...] PHILLIP CAMACHO Date: 2022-12-01 09:45 Normal The [facility] MRI LUMBAR SPINE WO CONTRAST on 11-17-2022 Mild degenerative change without canal stenosis or foraminal narrowing. RECOMMENDATIONS: Unavailable [facility] RIS CONSOLIDATED EXAMINATION: MRI OF THE [...] is no canal stenosis or foraminal narrowing. [facility] Vern Choi MD - 11/17/2022 EXAMINATION: [...] canal stenosis or foraminal narrowing. RECOMMENDATIONS: Unavailable [employer] Phone: Radiology Study observation (narrative) [employer] Phone: MRI LUMBAR SPINE WO CONTRAST Ordered By: Vern Olivo on 11-17-2022 [employer] Phone: Basic Metabolic Panelon Anion gap [Moles/Vol] 14.5 mmol/L Normal 6.0-15.0 [facility] Comment on above: Performed By: #### D IFF CBC, BMP #### [facility] [address] Calcium [Mass/Vol] 9.2 mg/dL Normal 8.2-10.2 [facility] Comment on above: Performed By: #### D IFF CBC, BMP #### [facility] [address] Chloride [Moles/Vol] 101 mmol/L Normal 95-114 [facility] Comment on above: Performed By: #### D IFF CBC, BMP #### [facility] [address] CO2 [Moles/Vol] 24.0 mmol/L Normal 22.0-30.0 [facility] Comment on above: Performed By: #### D IFF CBC, BMP #### [facility] [address] [place] [address] Creatinine [Mass/Vol] 1.02 mg/dL Normal 0.44-1.03 [facility] Comment on above: Performed By: #### D IFF CBC, BMP #### [facility] [address] [place] [address] Creatinine Clr Calc Pharmacy 78.76 [facility] Comment on above: Result Comment: PERF ORMED BY: [place] [id number] PATHOLOGIST CRIME SCENE EVIDENCE TECHNICIAN GRZEGORZ DUMONT M.D. Performed By: #### D IFF CBC, BMP #### [facility] [address] [place] [address] Estimated GFR ( Mai > 60 [facility] Comment on above: Result Comment: GFR estimated reference range: According to KDOQI guidelines, <60 ml/min/1.73m2 is sufficient to diagnose a patient with chronic kidney disease. Performed By: #### D IFF CBC, BMP #### [facility] [address] [place] [address] [place] Estimated GFR (Non- Am 58 [facility] Comment on above: Performed By: #### D IFF CBC, BMP #### [facility] [address] [place] [address] [place] Glucose [Mass/Vol] 223 mg/dL High 70-100 [facility] Comment on above: Result Comment: Almond om Glucose Reference Range is dependent on time and content of last meal. Glucose of more than 200 mg/dL in a nonstressed, ambulatory subject supports the diagnosis of Diabetes Mellitus. ADA recommended reference range Performed By: #### D IFF CBC, BMP #### [facility] [address] Potassium [Moles/Vol] 4.5 mmol/L Normal 3.5-5.1 [facility] Comment on above: Performed By: #### D IFF CBC, BMP #### [facility] [address] Sodium [Moles/Vol] 135 mmol/L Low 136-146 [facility] Comment on above: Performed By: #### D IFF CBC, BMP #### [facility] [address] [place] [address] [place] Urea nitrogen [Mass/Vol] 29 mg/dL High 9-23 [facility] Comment on above: Performed By: #### D IFF CBC, BMP #### [facility] [address] [place] [address] [place] Glucose Poct Glucometerson 0 10-04-2022 Glucose [Mass/Vol] 239 mg/dL Normal [facility] Comment on above: Result Comment: [facility] Glucose Reference Range is dependent on time and content of last meal. Glucose of more than 200 mg/dL in a nonstressed, ambulatory subject supports the diagnosis of Diabetes Mellitus. PERFORMED BY: [place] [address] PATHOLOGIST CRIME SCENE EVIDENCE TECHNICIAN GRZEGORZ DUMONT M.D. Performed By: #### G LULS #### Point of Care testing , Glucose [Mass/Vol] 234 mg/dL Normal [facility] Comment on above: Result Comment: [facility] Glucose Reference Range is dependent on time and content of last meal. Glucose of more than 200 mg/dL in a nonstressed, ambulatory subject supports the diagnosis of Diabetes Mellitus. PERFORMED BY: [facility] [address] [place] [address] PATHOLOGIST CRIME SCENE EVIDENCE TECHNICIAN GRZEGORZ DUMONT M.D. Performed By: #### G [...] developed and its performance characteristic determined by [employer] and validated at [facility]. This test has not been FDA cleared [...] for SARS Antigen by RY PERFORMED BY: [facility] [address] [place] [address] PATHOLOGIST CRIME SCENE EVIDENCE TECHNICIAN GRZEGORZ DUMONT M.D. Normal [facility] Comment on above: Performed By: #### C OVID-19 TAB, SOFIANEG #### [facility] [address] COVID-19 SOFIAOrdered By: Lucas Oliver on 09-30-2022 SARS-CoV+SARS-CoV-2 (COVID-19) Ag IA.rapid Ql (Resp) Negative Negative [facility] Comment on above: This is a duplicate Tab SARS Antigen (RY) result to be used for statistical tracking purpose only. No Panel InformationOrdered By: Shiraz Sherman on 09-30-2022 SARS Antigen (LFIA) [facility] Tab Ag Negativeon 09-30-19 Tab Ag Negative Negative Normal Negative [facility] Comment on above: Result Comment: This is a duplicate Tab SARS Antigen (RY) result to be used for statistical tracking purpose only. PERFORMED BY: [place] [address] PATHOLOGIST CRIME SCENE EVIDENCE TECHNICIAN GRZEGORZ DUMONT M.D. Performed By: #### C OVID-19 TAB, SOFIANEG #### [facility] [address] [place] [address] Tilt Table Teston 09-29-2022 Sharon Vargas MD - 09/29/2022 11:59 PM EST [address] [id number] TILT TABLE TEST PATIENT NAME: RISA WARNER : 1975 MED REC NO: [id number] ROOM: ACCOUNT NO: [id number] ADMIT DATE: 09/29/2022 PROVIDER: Sharon Vargas MD [...] up with their primary care physician and/or warp hanger as previously scheduled. STUDY CONCLUSIONS: Abnormal head [...] MD YURY/JULIUS_KIARA Doc#: Unknown CC: Vivian Oseguera, AUTOMOTIVE PROFESSIONAL-WEB SIZER [employer] Phone: Tilt Table TestOrdered By: Cheo Vargas on 09-29-2022 [employer] Phone: LDL Cholesterol, [employer] Cholesterol in LDL [Mass/Vol] 48 mg/dL NINF - 100 mg/dL [facility] Farrukh 09-21-2022 ALT [Catalytic activity/Vol] U/L Low 5 - 33 U/L [facility] Interpretation and review of laboratory results Abnormal [facility] Fredy 09-21-2022 AST [Catalytic activity/Vol] U/L NINF - 32 U/L [facility] Band form neutrophils/100 WB C Manual cnt (Bld)Ordered By: Shiraz Sherman on 09-21-2022 Band form neutrophils/100 WBC (Bld) 4 % 0-5 [facility] Basic Metabolic Panelon 08-27 Anion gap [Moles/Vol] 14.4 mmol/L Normal 6.0-15.0 [facility] Comment on above: Performed By: #### D IFF CBC, BMP #### [facility] [address] Calcium [Mass/Vol] 10.0 mg/dL Normal 8.2-10.2 [facility] Comment on above: Result Comment: PERF ORMED BY: [place] [address] PATHOLOGIST CRIME SCENE EVIDENCE TECHNICIAN GRZEGORZ DUMONT M.D. Performed By: #### D IFF CBC, BMP #### [facility] [address] [place] [address] [place] Chloride [Moles/Vol] 99 mmol/L Normal 95-114 [facility] Comment on above: Performed By: #### D IFF CBC, BMP #### [facility] [address] [id number] [place] CO2 [Moles/Vol] 23.5 mmol/L Normal 22.0-30.0 [facility] [facility] Comment on above: Performed By: #### D IFF CBC, BMP #### [facility] [address] [place] [address] [place] Creatinine [Mass/Vol] 0.91 mg/dL Normal 0.44-1.03 [facility] Comment on above: Performed By: #### D IFF CBC, BMP #### [facility] [address] [place] [address] [place] Estimated GFR ( Mai > 60 [facility] Comment on above: Result Comment: GFR estimated reference range: According to KDOQI guidelines, <60 ml/min/1.73m2 is sufficient to diagnose a patient with chronic kidney disease. Performed By: #### D IFF CBC, BMP #### [facility] [address] Estimated GFR (Non- Am > 60 [facility] Comment on above: Performed By: #### D IFF CBC, BMP #### [facility] [address] Glucose [Mass/Vol] 270 mg/dL High 70-100 [facility] Comment on above: Result Comment: Almond Glucose Reference Range is dependent on time and content of last meal. Glucose of more than 200 mg/dL in a nonstressed, ambulatory subject supports the diagnosis of Diabetes Mellitus. ADA recommended reference range Performed By: #### D IFF CBC, BMP #### [address] Potassium [Moles/Vol] 4.9 mmol/L Normal 3.5-5.1 [facility] Comment on above: Performed By: #### D IFF CBC, BMP #### [address] Sodium [Moles/Vol] 132 mmol/L Low 136-146 [facility] Comment on above: Performed By: #### D IFF CBC, BMP #### [address] Urea nitrogen [Mass/Vol] 20 mg/dL Normal 9-23 [facility] Comment on above: Performed By: #### D IFF CBC, BMP #### [place] [address] [place] Anion gap [Moles/Vol] 15 mmol/L 9 - 17 mmol/L [facility] Calcium [Mass/Vol] 10.2 mg/dL 8.6 - 10. 4 mg/dL [facility] Chloride [Moles/Vol] 98 mmol/L 98 - 10 7 mmol/L [facility] CO2 [Moles/Vol] 22 mmol/L 20 - 31 mmol/L [facility] Creatinine [Mass/Vol] 0.85 mg/dL 0.50 - 0.90 mg/dL [facility] GFR/1.73 sq M.predicted MDRD (S/P/Bld) [Vol rate/Area] - PINF [facility] Comment on above: Effective Jun 28, [...] mg/dL High 70 - 99 mg/dL [facility] Interpretation and review of laboratory results Abnormal [facility] Potassium [Moles/Vol] 4.8 mmol/L 3.7 - 5.3 mmol/L [facility] Sodium [Moles/Vol] 135 mmol/L 135 - 144 mmol/L [facility] Urea nitrogen (BldV) [Mass/Vol] 22 mg/dL High 6 - 20 mg/dL [facility] Urea nitrogen/Creatinine (Bld) [Mass ratio] 26 High 9 - 20 [facility] Basophils Auto (Bld) [#/Vol] Ordered By: Shiraz Sherman on 09-21-2022 Basophils (Bld) [#/Vol] N/A [facility] Basophils/100 WBC Auto (Bld) Ordered By: Shiraz Sherman on 09-21-2022 Basophils/100 WBC (Bld) N/A [facility] Basophils/100 WBC Manual cnt (Bld)Ordered By: Shiraz Sherman on 09-21-2022 Basophils/100 WBC (Bld) 1 % 0-2 [facility] CBC with Auto Differentialon 09-21-2022 Absolute Eos # 0.57 High [facility] Absolute Immature Granulocyte 0.19 [facility] Absolute Lymph # 3.29 [facility] Absolute [place] # 0.66 [facility] Basophils (Bld) [#/Vol] 0.11 10*3/uL [facility] Basophils/100 WBC (Bld) 1 % 0 - 2 % B ON [facility] Eosinophils/100 WBC (Bld) 6 % High 1 - 4 % [facility] Hematocrit (Bld) [Volume fraction] 43.2 % 36.3 - 47.1 % [facility] Hemoglobin (Bld) [Mass/Vol] 13.9 g/dL 11.9 - 15.1 g/dL [facility] Immature granulocytes/100 WBC (Bld) 2 % High 0 [facility] Interpretation and review of laboratory results Abnormal [facility] Lymphocytes/100 WBC (Bld) 35 % 24 - 43 % [facility] MCH (RBC) [Entitic mass] 32.3 pg 25.2 - 33.5 pg [facility] MCHC (RBC) [Mass/Vol] 32.2 g/dL 28.4 - 34.8 g/dL [facility] MCV (RBC) [Entitic vol] 100.5 fL 82.6 - 102.9 fL [facility] Monocytes/100 WBC (Bld) 7 % 3 - 12 % B ON [facility] NRBC Automated 0.0 0.0 per 100 WBC [facility] Platelet distribution width (Bld) [Ratio] 13.2 % 11.8 - 14.4 % [facility] Platelet mean volume (Bld) [Entitic vol] 9.1 fL 8.1 - 13.5 fL [facility] Platelets (Bld) [#/Vol] 393 10*3/uL [facility] RBC (Bld) [#/Vol] 4.30 10*6/uL 3.95 - 5.1 1 m/uL [facility] Segmented neutrophils/100 WBC (Bld) 49 % 36 - 65 % [facility] Segs Absolute 4.59 [facility] WBC (Bld) [#/Vol] 9.4 10*3/uL [facility] Creatinine and Glomerular fi ltration rate.predicted panel (S/P/Bld)Ordered By: Shiraz Sherman on 09-21-2022 Creatinine [Mass/Vol] 0.91 mg/dL 0.44-1.03 [facility] Diff and CBCon 09-21-2022 Band form neutrophils/100 WBC (Bld) 4 % Normal 0-5 [facility] Comment on above: Performed By: #### D IFF CBC, BMP #### [facility] [address] Basophils/100 WBC (Bld) 1 % Normal 0-2 [facility] Comment on above: Performed By: #### D IFF CBC, BMP #### [facility] [address] Eosinophils/100 WBC (Bld) 7 % High 1-3 [facility] Comment on above: Performed By: #### D IFF CBC, BMP #### [facility] [address] Erythrocyte distribution width (RBC) [Ratio] 14.2 % Normal 11.9-15.3 [facility] Comment on above: Performed By: #### D IFF CBC, BMP #### [facility] [address] Giant Platelet Tally 2 /100{WBC} Normal [facility] Comment on above: Performed By: #### D IFF CBC, BMP #### [facility] [address] [place] [address] Hematocrit (Bld) [Volume fraction] 38.8 % Normal 34.0-46.4 [facility] Comment on above: Performed By: #### D IFF CBC, BMP #### [facility] [address] [place] [address] [place] Hemoglobin (Bld) [Mass/Vol] 12.9 g/dL Normal 11.8-15.4 [facility] Comment on above: Performed By: #### D IFF CBC, BMP #### [facility] [address] [place] [address] [place] Lymphocytes/100 WBC (Bld) 15 % Low 18-42 [facility] Comment on above: Performed By: #### D IFF CBC, BMP #### [facility] [address] [place] [address] MCH (RBC) [Entitic mass] 31.0 pg Normal 24.7-34.3 [facility] Comment on above: Performed By: #### D IFF CBC, BMP #### [facility] [address] [place] [address] MCV (RBC) [Entitic vol] 93.3 fL Normal 80-100 [facility] Comment on above: Performed By: #### D IFF CBC, BMP #### [facility] [address] [place] [address] Mean Corpuscular HGB Conc 33.2 g/dL Normal 32.0-35.0 [facility] Comment on above: Performed By: #### D IFF CBC, BMP #### [facility] [address] [place] [address] Metamyelocytes 2 % High 0-0 [facility] Comment on above: Performed By: #### D IFF CBC, BMP #### [facility] [address] [place] [address] Monocytes/100 WBC (Bld) 9 % Normal 2-11 [facility] Comment on above: Performed By: #### D IFF CBC, BMP #### [facility] [address] [place] [address] Myelocytes 1 % High 0-0 [facility] Comment on above: Performed By: #### D IFF CBC, BMP #### [facility] [address] [place] [address] Platelet Estimate Normal Normal Normal [facility] Comment on above: Performed By: #### D IFF CBC, BMP #### [address] Platelet mean volume (Bld) [Entitic vol] 7.4 fL Normal 6.3-10.7 [facility] Comment on above: Result Comment: PERF ORMED BY: [place] [address] PATHOLOGIST [employer] EVIDENCE TECHNICIAN GRZEGORZ DUMONT M.D. Performed By: #### D IFF CBC, BMP #### [address] Platelet Morphology Normal Normal Normal [facility] Comment on above: Result Comment: PERF ORMED BY: [place] [address] PATHOLOGIST CRIME SCENE EVIDENCE TECHNICIAN GRZEGORZ DUMONT M.D. Performed By: #### D IFF CBC, BMP #### [facility] [address] [place] [address] [place] Platelets (Bld) [#/Vol] 363 10*3/uL Normal 150-450 [facility] Comment on above: Performed By: #### D IFF CBC, BMP #### [place] [address] [place] RBC (Bld) [#/Vol] 4.16 10*6/uL Normal 3.60-5.00 [facility] Comment on above: Performed By: #### D IFF CBC, BMP #### [facility] [address] [place] [address] RBC morphology finding Nom (Bld) Normal Normal Normal [facility] Comment on above: Performed By: #### D IFF CBC, BMP #### [facility] [address] [place] [address] [place] Segmented neutrophils/100 WBC (Bld) 62 % Normal 50-70 [facility] Comment on above: Performed By: #### D IFF CBC, BMP #### [facility] [address] [place] [address] [place] WBC (Bld) [#/Vol] 8.4 10*3/uL Normal 3.8-11.6 [facility] Comment on above: Performed By: #### D IFF CBC, BMP #### [facility] [address] [place] [address] ECG 12 lead ECGon 09-21-2022 ECG 12 lead ECG [facility] [place] [address] Electrocardiograph Report Signed Patient: Risa Warner MR#: [id number] 52 : 1975 Acct:[id number] Age/Sex: 47 / F ADM Date: 09/21/22 Loc: PS Room: Type: [facility] Attending Dr: Shiraz Sherman MD [...] John Sanchez MD 1 11/22/21 1710 Normal [facility] Eosinophils Auto (Bld) [#/Vo l]Ordered By: Shiraz Sherman on 09-21-2022 Eosinophils (Bld) [#/Vol] N/A [facility] Eosinophils/100 WBC Auto (Bl d)Ordered By: Shiraz Sherman on 09-21-2022 Eosinophils/100 WBC (Bld) N/A [facility] Eosinophils/100 WBC Manual c nt (Bld)Ordered By: Shiraz Sherman on 09-21-2022 Eosinophils/100 WBC (Bld) 7 % 1-3 [facility] Erythrocyte distribution wid th Auto (RBC) [Ratio]Ordered By: Shiraz Sherman on 09-21-2022 Erythrocyte distribution width (RBC) [Ratio] 14.2 % 11.9-15.3 [facility] Estimated glomerular filtrat ion rate (GFR) non- AmericanOrdered By: Shiraz Sherman on 09-21-2022 GFR/1.73 sq M.predicted among non-blacks MDRD (S/P/Bld) [Vol rate/Area] > 60 mL/Min [facility] Giant platelets/100 leukocyt es [Ratio] in Blood by Manual countOrdered By: Shiraz Sherman on 09-21-2022 Giant platelets/100 WBC Manual cnt (Bld) [Ratio] 2 /100{WBC} [facility] Hematocrit Auto (Bld) [Volum e fraction]Ordered By: Shiraz Sherman on 09-21-2022 Hematocrit (Bld) [Volume fraction] 38.8 % 34.0-46.4 [facility] Hemoglobin [Mass/volume] in BloodOrdered By: Shiraz Sherman on 09-21-2022 Hemoglobin (Bld) [Mass/Vol] 12.9 g/dL 11.8-15.4 [facility] Leukocytes [#/volume] correc priya for nucleated erythrocytes in Blood by Automated counOrdered By: Shiraz Sherman on 09-21-2022 WBC corrected for nucl RBC Auto (Bld) [#/Vol] 8.4 10*3/uL 3.8-11.6 [facility] Lipid Panelon 09-21-2022 Cholesterol [Mass/Vol] 215 mg/dL High NINF - 200 mg/dL [facility] Comment on above: Cholesterol Guidelines: <200 Desirable 200-240 Borderline >240 Undesirable Cholesterol in HDL [Mass/Vol] 21 mg/dL Low 40 - PINF mg/dL [facility] Comment on above: HDL Guidelines: <40 Undesirable 40-59 Borderline >59 Desirable Cholesterol.total/Poppy sterol in HDL [Mass ratio] 10.2 {ratio} High NINF - 5 [facility] Interpretation and review of laboratory results Abnormal [facility] LDL Cholesterol 0 - 130 mg/dL [facility] Comment on above: Calculation not tracy d for Triglyceride value greater than 400 mg/dL. Direct LDL reflexed LDL Guidelines: <100 Desirable 100-129 Near to/above Desirable 130-159 Borderline >159 Undesirable Direct (measured) LDL and calculated LDL are not interchangeable tests. Triglyceride [Mass/Vol] 1567 mg/dL High NINF - 150 mg/dL [facility] [employer] [facility] Comment on above: Triglyceride Guidelines: <150 Desirable 150-199 Borderline 200-499 High >499 Very high Based on AHA Guidelines for fasting triglyceride, June 2012. [facility] Lymphocytes Auto (Bld) [#/Vo l]Ordered By: Shiraz Sherman on 09-21-2022 Lymphocytes (Bld) [#/Vol] N/A [facility] Lymphocytes/100 WBC Auto (Bl d)Ordered By: Shiraz Sherman on 09-21-2022 Lymphocytes/100 WBC (Bld) N/A [facility] Lymphocytes/100 WBC Manual c nt (Bld)Ordered By: Shiraz Sherman on 09-21-2022 Lymphocytes/100 WBC (Bld) 15 % 18-42 [facility] MCH Auto (RBC) [Entitic mass ]Ordered By: Shiraz Sherman on 09-21-2022 MCH (RBC) [Entitic mass] 31.0 pg 24.7-34.3 [facility] MCHC Auto (RBC) [Mass/Vol]Or dered By: Shiraz Sherman on 09-21-2022 MCHC (RBC) [Mass/Vol] 33.2 g/dL 32.0-35.0 [facility] MCV Auto (RBC) [Entitic vol] Ordered By: Shiraz Sherman on 09-21-2022 MCV (RBC) [Entitic vol] 93.3 fL 80-100 [facility] Metamyelocytes/100 WBC Manua l cnt (Bld)Ordered By: Shiraz Sherman on 09-21-2022 Metamyelocytes/100 WBC (Bld) 2 % 0-0 [facility] Microalbumin, Uron 2 Albumin/Creatinine DL <= 20 mg/L (24H U) [Mass ratio] mg/L NINF - 21 mg/L [facility] Albumin/Creatinine DL <= 20 mg/L (U) [Ratio] Can not be calculated [facility] Creatinine [Mass/Vol] 80.3 mg/dL 28.0 - 217.0 mg/dL [facility] Monocytes Auto (Bld) [#/Vol] Ordered By: Shiraz Sherman on 09-21-2022 Monocytes (Bld) [#/Vol] N/A [facility] Monocytes/100 WBC Auto (Bld) Ordered By: Shiraz Sherman on 09-21-2022 Monocytes/100 WBC (Bld) N/A [facility] Monocytes/100 WBC Manual cnt (Bld)Ordered By: Shiraz Sherman on 09-21-2022 Monocytes/100 WBC (Bld) 9 % 2-11 [facility] Myelocytes/100 WBC Manual cn t (Bld)Ordered By: Shiraz Sherman on 09-21-2022 Myelocytes/100 WBC (Bld) 1 % 0-0 [facility] Neutrophils Auto (Bld) [#/Vo l]Ordered By: Shiraz Sherman on 09-21-2022 Neutrophils (Bld) [#/Vol] N/A [facility] Neutrophils/100 WBC Auto (Bl d)Ordered By: Shiraz Sherman on 09-21-2022 Neutrophils/100 WBC (Bld) N/A [facility] No Panel InformationOrdered By: Shiraz Sherman on 09-21-2022 Estimated GFR () > 60 mL/Min [facility] Comment on above: GFR estimated refere nce range: According to KDOQI guidelines, <60 ml/min/1.73m2 is sufficient to diagnose a patient with chronic kidney disease. Pharmacy Creatinine Clearance (Chem N/A [facility] No Panel Informationon 09-21 [facility] Nucleated erythrocytes [Pres ence] in Blood by Automated countOrdered By: Shiraz Sherman on 09-21-2022 Nucleated RBC Auto Ql (Bld) N/A [facility] Platelet adequacy [Presence] in Blood by Light microscopyOrdered By: Shiraz Sherman on 09-21-2022 Platelets LM Ql (Bld) Normal Normal [facility] Platelet mean volume Auto (B ld) [Entitic vol]Ordered By: Shiraz Sherman on 09-21-2022 Platelet mean volume (Bld) [Entitic vol] 7.4 fL 6.3-10.7 [facility] Platelet morphology finding [Identifier] in BloodOrdered By: Shiraz Sherman on 09-21-2022 Platelet morphology finding Nom (Bld) Normal Normal [facility] Platelets Auto (Bld) [#/Vol] Ordered By: Shiraz Sherman on 09-21-2022 Platelets (Bld) [#/Vol] 363 10*3/uL 150-450 [facility] RBC Auto (Bld) [#/Vol]Ordere d By: Shiraz Sherman on 09-21-2022 RBC (Bld) [#/Vol] 4.16 10*6/uL 3.60-5.00 [facility] RBC morphologyOrdered By: Lucas Oliver on 09-21-2022 RBC morphology finding Nom (Bld) Normal Normal [facility] Segmented neutrophils/100 WB C Manual cnt (Bld)Ordered By: Shiraz Sherman on 09-21-2022 Segmented neutrophils/100 WBC (Bld) 62 % 50-70 [facility] Serum or plasma anion gap de terminationOrdered By: Shiraz Sherman on 09-21-2022 Anion gap [Moles/Vol] 14.4 mmol/L 6.0-15.0 [facility] Serum or plasma calcium josh urement (mass/volume)Ordered By: Shiraz Sherman on 09-21-2022 Calcium [Mass/Vol] 10.0 mg/dL 8.2-10.2 [facility] Serum or plasma chloride claus surement (moles/volume)Ordered By: Shiraz Sherman on 09-21-2022 Chloride [Moles/Vol] 99 mmol/L 95-114 [facility] Serum or plasma glucose josh urement (mass/volume)Ordered By: Shiraz Sherman on 09-21-2022 Glucose [Mass/Vol] 270 mg/dL 70-100 [facility] Comment on above: ADA recommended refe rence rangeRandom Glucose Reference Range is dependent on time and content of last meal. Glucose of more than 200 mg/dL in a nonstressed, ambulatory subject supports the diagnosis of Diabetes Mellitus. Serum or plasma potassium me asurement (moles/volume)Ordered By: Shiraz Sherman on 09-21-2022 Potassium [Moles/Vol] 4.9 mmol/L 3.5-5.1 [facility] Serum or plasma sodium measu rement (moles/volume)Ordered By: Shiraz Sherman on 09-21-2022 Sodium [Moles/Vol] 132 mmol/L 136-146 [facility] Serum or plasma total carbon dioxide measurement (moles/volume)Ordered By: Shiraz Sherman on 09-21-2022 CO2 [Moles/Vol] 23.5 mmol/L 22.0-30.0 [facility] Serum or plasma urea nitroge n measurement (mass/volume)Ordered By: Shiraz Sherman on 09-21-2022 Urea nitrogen [Mass/Vol] 20 mg/dL 06-18 [facility] WBC Auto (Bld) [#/Vol]Ordere d By: Shiraz Sherman on 09-21-2022 WBC (Bld) [#/Vol] 8.4 10*3/uL 3.8-11.6 [facility] POINT OF CARE GLUCOSEon 08-27 Glucose [Mass/Vol] 151 mg/dL Critically high 74-106 [facility] Comment on above: Performed By: #### P OCGLUC #### [facility] [address] [place], [place] [address] Dr. Chidi Reyes POINT OF CARE GLUCOSEon 08-26 Glucose [Mass/Vol] 184 mg/dL Critically high 74-106 [facility] Comment on above: Performed By: #### P OCGLUC ####[facility] [id number] [place] [id number] Reyes POINT OF CARE GLUCOSEon 07-27 Glucose [Mass/Vol] 95 mg/dL Normal 74-106 [facility] Comment on above: Performed By: #### P OCGLUC ####[facility] [id number] [place] [id number] Reyes Basic Metabolic Panelon 07-27 Anion gap [Moles/Vol] 18 mmol/L High 9 - 17 mmol/L [facility] Calcium [Mass/Vol] 9.6 mg/dL 8.6 - 10. 4 mg/dL [facility] Chloride [Moles/Vol] 98 mmol/L 98 - 10 7 mmol/L [facility] CO2 [Moles/Vol] 22 mmol/L 20 - 31 mmol/L [facility] Creatinine [Mass/Vol] 0.91 mg/dL High 0.50 - 0.90 mg/dL [facility] GFR/1.73 sq M.predicted MDRD (S/P/Bld) [Vol rate/Area] - PINF [facility] Comment on above: Effective Jun 28, [...] mg/dL High 70 - 99 mg/dL [facility] Interpretation and review of laboratory results Abnormal [facility] Potassium [Moles/Vol] 4.8 mmol/L 3.7 - 5.3 mmol/L [facility] Sodium [Moles/Vol] 138 mmol/L 135 - 144 mmol/L [facility] Urea nitrogen (BldV) [Mass/Vol] 28 mg/dL High 6 - 20 mg/dL [facility] Urea nitrogen/Creatinine (Bld) [Mass ratio] 31 High 9 - 20 [facility] CBC with Auto Differentialon 08-06-2022 Absolute Eos # 0.35 [facility] Absolute Immature Granulocyte 0.10 [facility] Absolute Lymph # 3.09 [facility] Absolute [place] # 0.73 [facility] Basophils (Bld) [#/Vol] 0.09 10*3/uL [facility] Basophils/100 WBC (Bld) 1 % 0 - 2 % B [facility] Eosinophils/100 WBC (Bld) 4 % 1 - 4 % [facility] Hematocrit (Bld) [Volume fraction] 39.6 % 36.3 - 47.1 % [facility] Hemoglobin (Bld) [Mass/Vol] 12.8 g/dL 11.9 - 15.1 g/dL [facility] Immature granulocytes/100 WBC (Bld) 1 % High 0 [facility] Interpretation and review of laboratory results Abnormal [facility] Lymphocytes/100 WBC (Bld) 36 % 24 - 43 % [facility] MCH (RBC) [Entitic mass] 31.3 pg 25.2 - 33.5 pg [facility] MCHC (RBC) [Mass/Vol] 32.3 g/dL 28.4 - 34.8 g/dL [facility] MCV (RBC) [Entitic vol] 96.8 fL 82.6 - 102.9 fL [facility] Monocytes/100 WBC (Bld) 9 % 3 - 12 % B [facility] NRBC Automated 0.0 0.0 per 100 WBC [facility] Platelet distribution width (Bld) [Ratio] 13.2 % 11.8 - 14.4 % [facility] Platelet mean volume (Bld) [Entitic vol] 8.9 fL 8.1 - 13.5 fL [facility] Platelets (Bld) [#/Vol] 368 10*3/uL [facility] RBC (Bld) [#/Vol] 4.09 10*6/uL 3.95 - 5.1 1 m/uL [facility] Segmented neutrophils/100 WBC (Bld) 49 % 36 - 65 % [facility] Segs Absolute 4.20 [facility] WBC (Bld) [#/Vol] 8.6 10*3/uL [facility] D-Dimer, Quantitativeon 11- D-Dimer, Quant 0.39 [facility] Comment on above: When combined with [...] prevalent in patients with distal DVT. [facility] Troponinon 08-06-2022 Interpretation and review of laboratory results Abnormal [facility] Troponin, High Sensitivity 20 ng/L High 0 - 14 ng/L [facility] Comment on above: High Sensitivity Troponin values cannot be compared with other Troponin methodologies. Patients with high levels of Biotin oral intake (i.e >5mg/day) may have falsely decreased Troponin levels. Samples collected within 8 hours of biotin intake may require additional information for diagnosis. [facility] Interpretation and review of laboratory results Abnormal [facility] eeden Troponin, High Sensitivity 19 ng/L High 0 - 14 ng/L [facility] Comment on above: High Sensitivity Troponin values cannot be compared with other Troponin methodologies. Patients with high levels of Biotin oral intake (i.e >5mg/day) may have falsely decreased Troponin levels. Samples collected within 8 hours of biotin intake may require additional information for diagnosis. [facility] XR CHEST PORTABLEon 08-06-20 No evidence of acute cardiopulmonary process. Large body habitus. [facility] CONSOLIDATED EXAMINATION: ONE XRAY [...] is present over the lower thoracic spine. [facility] Cristina English MD [...] of acute cardiopulmonary process. Large body habitus. [employer] Phone: Radiology Study observation (narrative) [employer] Phone: XR CHEST PORTABLEOrdered By: Cristina English on 08-06-2022 [employer] Phone: US LIVERon 08-04-2022 Liver shows increased echogenicity suggesting hepatic steatosis without focal lesion. With otherwise unremarkable exam [facility] RIS CONSOLIDATED EXAMINATION: RIGHT UPPER QUADRANT ULTRASOUND [...] No evidence of right upper quadrant ascites. [facility] CONSOLIDATED Ruddy Mallory DO - [...] without focal lesion. With otherwise unremarkable exam [employer] Phone: Radiology Study observation (narrative) [employer] Work Phone: US LIVEROrdered By: Ruddy choi on 08-04-2022 [facility] Work Phone: Ceruloplasminon 07-20-2022 Ceruloplasmin 22 mg/dL 16 - 45 mg/dL [facility] [employer] [facility] eeden [facility] eeden Hepatitis B Surface Antibody on 07-20-2022 HBV surface Ab (S) [Titer] <3.50 NINF [facility] eeden Comment on above: REFERENCE RANGE: <10.0 NON-REACTIVE/NOT IMMUNE >=10.0 REACTIVE/IMMUNE [facility] [employer] [facility] eeden CBC with Auto Differentialon 07-19-2022 Absolute Eos # 0.32 [facility] eeden Absolute Immature Granulocyte 0.07 [facility] eeden Absolute Lymph # 3.05 [facility] e[facility]en Absolute [place] # 0.53 [facility] eeden Basophils (Bld) [#/Vol] 0.06 10*3/uL [facility] eeden Basophils/100 WBC (Bld) 1 % 0 - 2 % B [facility] eeden Eosinophils/100 WBC (Bld) 4 % 1 - 4 % [facility] eeden Hematocrit (Bld) [Volume fraction] 38.1 % 36.3 - 47.1 % [facility] [employer] [facility]en Hemoglobin (Bld) [Mass/Vol] 11.9 g/dL 11.9 - 15.1 g/dL [facility] eeden Immature granulocytes/100 WBC (Bld) 1 % High 0 [facility] eeden Interpretation and review of laboratory results Abnormal [facility] eeden Lymphocytes/100 WBC (Bld) 40 % 24 - 43 % [facility] eeden MCH (RBC) [Entitic mass] 31.1 pg 25.2 - 33.5 pg [facility] MCHC (RBC) [Mass/Vol] 31.2 g/dL 28.4 - 34.8 g/dL [facility] MCV (RBC) [Entitic vol] 99.5 fL 82.6 - 102.9 fL [facility] Monocytes/100 WBC (Bld) 7 % 3 - 12 % B ON [facility] NRBC Automated 0.0 0.0 per 100 WBC [facility] Platelet distribution width (Bld) [Ratio] 13.7 % 11.8 - 14.4 % [facility] Platelet mean volume (Bld) [Entitic vol] 8.9 fL 8.1 - 13.5 fL [facility] Platelets (Bld) [#/Vol] 357 10*3/uL [facility] RBC (Bld) [#/Vol] 3.83 10*6/uL Low 3.95 - 5.1 1 m/uL [facility] Segmented neutrophils/100 WBC (Bld) 47 % 36 - 65 % [facility] Segs Absolute 3.61 [facility] WBC (Bld) [#/Vol] 7.6 10*3/uL [facility] Comprehensive Metabolic Pane l with Bilirubinon 07-19-2022 Albumin [Mass/Vol] 4.6 g/dL 3.5 - 5.2 g/dL [facility] Albumin/Globulin [Mass ratio] 1.8 {ratio} 1.0 - 2.5 [facility] ALP (Bld) [Catalytic activity/Vol] 53 U/L 35 - 104 U/L [facility] ALT [Catalytic activity/Vol] 36 U/L High 5 - 33 U/L [facility] Anion gap [Moles/Vol] 13 mmol/L 9 - 17 mmol/L [facility] AST [Catalytic activity/Vol] 37 U/L High NINF - 32 U/L [facility] Bilirubin [Mass/Vol] 0.2 mg/dL Low 0.3 - 1 .2 mg/dL [facility] Bilirubin, Indirect Can not be calculated 0.00 - 1.00 mg/dL [facility] Bilirubin.indirect [Mass/Vol] mg/dL NINF - 0.31 mg/dL [facility] Calcium [Mass/Vol] 9.2 mg/dL 8.6 - 10. 4 mg/dL [facility] Chloride [Moles/Vol] 102 mmol/L 98 - 10 7 mmol/L [facility] CO2 [Moles/Vol] 24 mmol/L 20 - 31 mmol/L [facility] Creatinine [Mass/Vol] 0.88 mg/dL 0.50 - 0.90 mg/dL [facility] GFR/1.73 sq M.predicted MDRD (S/P/Bld) [Vol rate/Area] - PINF [facility] Comment on above: Effective Jun 28, [...] mg/dL High 70 - 99 mg/dL [facility] Interpretation and review of laboratory results Abnormal [facility] Potassium [Moles/Vol] 4.9 mmol/L 3.7 - 5.3 mmol/L [facility] Protein [Mass/Vol] 7.2 g/dL 6.4 - 8.3 g/dL [facility] Sodium [Moles/Vol] 139 mmol/L 135 - 144 mmol/L [facility] Urea nitrogen (BldV) [Mass/Vol] 28 mg/dL High 6 - 20 mg/dL [facility] POINT OF CARE GLUCOSEon 03-26 Glucose [Mass/Vol] 106 mg/dL Normal 74-106 [facility] Comment on above: Performed By: #### P OCGLUC #### [facility] [address] [address] [address] Chidi Reyes VL LOWER EXTREMITY ARTERIAL SEGMENTAL PRESSURES W PPGon 04-01-2022 Ruddy Mallory DO - 04/01/2022 [facility] Vascular Lower Arterial Plethysmography Procedure Patient Name TIMMY Date of Study 03/31/2022 RISA Cooper Date of 1975 Gender Female Age 47 year(s) Race Room Number Corporate ID [id number] # Patient Acct [id number] # MR # [id number] Sales Product Manager Vicki Spicer RVT Interpreting Physician Ruddy Mallory [...] +---------++------- -+-----+ ----++--------+---- -+ + KEAGAN MORSE [employer] Phone: VL LOWER EXTREMITY ARTERIAL SEGMENTAL PRESSURES W PPGOrdered By: Ruddy Mallory on 04-01-2022 KEAG[employer] MORSE [employer] Phone: VL LOWER EXTREMITY ARTERIAL SEGMENTAL PRESSURES W PPGon 03-31-2022 Radiology Study observation (narrative) KEAGAN ALLEN [employer] Phone: Creatine Kinaseon 03-02-2022 CK [Catalytic activity/Vol] 274 U/L High 22-269 [facility] Comment on above: Result Comment: PERF ORMED BY: [place] [address] PATHOLOGIST CRIME SCENE EVIDENCE TECHNICIAN GRZEGORZ DUMONT M.D. Performed By: #### C K #### [address] #### SJOGRENS #### [facility] , Sjogrens Anti-SSA/SSBon SS-A/Ro Sjogrens Antibody <0.2 Normal 0.0-0.9 [facility] Comment on above: Performed By: #### C K #### [place] [address] [place] #### SJOGRENS #### [facility] , SS-B/La Sjogrens Antibody <0.2 Normal 0.0-0.9 [facility] Comment on above: Result Comment: Perf ormed at: - [facility] [address] [id number] [employer] Operator: Chandana Oliveros PhD, Phone: [phone] PERFORMED BY: [place] [address] PATHOLOGIST CRIME SCENE EVIDENCE TECHNICIAN GRZEGORZ DUMONT M.D. Performed By: #### C K #### [place] [address] [place] #### SJOGRENS #### [facility] , XR hand BI 2Von 03-02-2022 XR hand BI 2V [facility] [place] [address] [place], [place] [id number] XRay Report Signed Patient: Risa Warner MR#: [id number] : 1975 Acct:[id number] Age/Sex: 47 / F ADM Date: 03/02/22 Loc: ICXD Room: Type: [facility] Attending Dr: Sam Hidalgo MD Ordering Provider: [...] Edwin White M.D.03/02/2022 4:09 PM Dictation Location: [place] [address] Transcribed By: [facility] 03/02/22 1609 Dictated By: Edwin White DO 03/02/22 1608 Signed By: 03/02/22 1609 [facility] MARISOL DIGITAL SCREEN BILA TERALOrdered By: Vivian Oseguera on 05-15-2021 No mammographic evidence of malignancy. BI-RADS 1 BIRADS: BIRADS - CATEGORY 1 Negative, no evidence of malignancy. Normal interval follow-up is recommended in 12 months. OVERALL ASSESSMENT - NEGATIVE A letter of notification will be sent to the patient regarding the results. [employer] recommends annual mammograms for women 40 years and older. [employer] Phone: EXAMINATION: SCREENING DIGITAL BILATERAL MAMMOGRAM WITH TOMOSYNTHESIS, 05/15/2021 TECHNIQUE: Screening mammography was performed with tomosynthesis including MLO and CC views of the bilateral breasts. Computer aided detection was used for the interpretation of this exam. COMPARISON: 03/12/2016 HISTORY: Screening. FINDINGS: The breast tissue is composed of scattered fibroglandular tissue. There is no suspicious mass, suspicious microcalcification, or area of architectural distortion. [employer] Work Phone: [facility] Phone: US FIBROSCANon 04-14-2021 US FIBROSCAN [employer] Controlled Transient Elastography (Fibroscan) Supervisor D[employer] San[employer]: Ameena Crisostomo Attending: Leah Martins MD ? [...] S2-3. Clinical correlation indicated Leah Martins MD [facility] Interpreted by: Leah Martins MD Signed by: Leah Martins MD 04/14/21 Final result Normal [facility] FerritinOrdered By: Claudia Willett on 03-12-2021 Ferritin 199 ug/L High 13 - 150 ug/L [facility] Work Phone: Iron and TIBCOrdered By: Carmen Willett on 03-12-2021 Iron [Mass/Vol] 71 ug/dL 37 - 145 ug/dL [facility] [employer] Work Phone: Iron Saturation 17 % Low 20 - 55 % [facility] Work Phone: TIBC 412 ug/dL 250 - 450 ug/dL [facility] Work Phone: UIBC 341 ug/dL 112 - 347 ug/dL [facility] Work Phone: No Panel InformationOrdered By: Claudia Willett on 03-12-2021 Interpretation and review of laboratory results Abnormal [employer] Phone: [employer] Phone: CBCOrdered By: Claudia Willett on 03-11-2021 Hematocrit (Bld) [Volume fraction] 45.2 % 36.3 - 47.1 % [employer] Phone: Hemoglobin.gastrointest inal spec 1 Ql (Stl) 14.1 g/dL 11.9 - 15.1 g/dL [employer] Phone: MCH (RBC) [Entitic mass] 30.2 pg 25.2 - 33.5 pg [employer] Phone: MCHC (RBC) [Mass/Vol] 31.2 g/dL 28.4 - 34.8 g/dL [employer] Phone: MCV (RBC) [Entitic vol] 96.8 fL 82.6 - 102.9 fL [employer] Phone: NRBC Automated 0.0 0.0 per 100 WBC [employer] Phone: Platelet distribution width (Bld) [Ratio] 12.5 % 11.8 - 14.4 % [employer] Phone: Platelet mean volume (Bld) [Entitic vol] 9.0 fL 8.1 - 13.5 fL [employer] Phone: Platelets (Bld) [#/Vol] 372 10*3/uL [employer] Phone: RBC (Bld) [#/Vol] 4.67 10*6/uL 3.95 - 5.1 1 m/uL [employer] Phone: WBC (Bld) [#/Vol] 7.5 10*3/uL [employer] Phone: [employer] Phone: Comprehensive Metabolic Pane lOrdered By: Claudia Willett on 03-11-2021 Albumin [Mass/Vol] 4.6 g/dL 3.5 - 5.2 g/dL [employer] Phone: Albumin/Globulin [Mass ratio] 1.8 {ratio} [employer] Phone: ALP (Bld) [Catalytic activity/Vol] 88 U/L 35 - 104 U/L [employer] Phone: ALT [Catalytic activity/Vol] 52 U/L High 5 - 33 U/L [employer] Phone: Anion gap [Moles/Vol] 12 mmol/L 9 - 17 mmol/L [employer] Phone: AST [Catalytic activity/Vol] 45 U/L High <32 [employer] Phone: Bilirubin [Mass/Vol] 0.32 mg/dL 0.3 - 1 .2 mg/dL [employer] Phone: Calcium [Mass/Vol] 9.8 mg/dL 8.6 - 10. 4 mg/dL [employer] Phone: Chloride [Moles/Vol] 102 mmol/L 98 - 10 7 mmol/L [employer] Phone: CO2 [Moles/Vol] 25 mmol/L 20 - 31 mmol/L [employer] Phone: Creatinine [Mass/Vol] 0.68 mg/dL 0.50 - 0.90 mg/dL [employer] Phone: Free PSA/Total PSA [Mass fraction] 7.2 g/dL 6.4 - 8.3 g/dL [employer] Phone: GFR >60 >60 mL/min [employer] Phone: GFR Non- >60 >60 mL/min [employer] Phone: Glucose [Mass/Vol] 231 mg/dL High 70 - 99 mg/dL [facility] [employer] Phone: Interpretation and review of laboratory results Abnormal [facility] [employer] Phone: Potassium [Moles/Vol] 4.7 mmol/L 3.7 - 5.3 mmol/L [facility] [employer] Phone: Sodium [Moles/Vol] 139 mmol/L 135 - 144 mmol/L [facility] [employer] Phone: Urea nitrogen (BldV) [Mass/Vol] 24 mg/dL High 6 - 20 mg/dL [facility] [employer] Phone: Urea nitrogen/Creatinine (Bld) [Mass ratio] 35 High [facility] [employer] Phone: [facility] [employer] Phone: Hepatitis B Core Antibody, T otalOrdered By: Claudia Willett on 03-11-2021 Hep B Core Total Ab Non-Reactive NONREACTIVE [facility] [employer] Phone: Hepatitis B Surface AntigenO rdered By: Claudia Willett on 03-11-2021 Hepatitis B Surface Ag Non-Reactive NONREACTIVE [facility] [employer] Phone: Hepatitis C AntibodyOrdered By: Claudia Willett on 03-11-2021 Hepatitis C Ab Non-Reactive NONREACTIVE [facility] Work Phone: Comment on above: The hepatitis [...] GFR/1.73 sq M.predicted MDRD (S/P/Bld) [Vol rate/Area] [facility] [employer] Phone: Comment on above: Average GFR for 40-4 9 years old: 99 mL/min/1.73sq m Chronic Kidney Disease: <60 mL/min/1.73sq m Kidney failure: <15 mL/min/1.73sq m eGFR calculated using average adult body mass. Additional eGFR calculator available at: http://www.[employer]/multiple_crcl_2012.htm Stage 1: Some kidney damage normal GFR Stage 2: Mild kidney damage GFR 60-89 Stage 3: Moderate kidney damage GFR 30-59 Stage 4: Severe kidney damage GFR 15-29 Stage 5: Severe kidney damage GFR <15 ESRD - chronic treatment by dialysis or transplant No Panel InformationOrdered By: Claudia Willett on 03-11-2021 [employer] Phone: Hepatic Function PanelOrdere d By: Vivian Oseguera on 02-09-2021 Albumin [Mass/Vol] 4.3 g/dL 3.5 - 5.2 g/dL [employer] Phone: Albumin/Globulin [Mass ratio] 1.3 {ratio} [employer] Phone: ALP (Bld) [Catalytic activity/Vol] 102 U/L 35 - 104 U/L [employer] Phone: ALT [Catalytic activity/Vol] 34 U/L High 5 - 33 U/L [employer] Phone: AST [Catalytic activity/Vol] 24 U/L <32 [employer] Phone: Bilirubin [Mass/Vol] 0.24 mg/dL Low 0.3 - 1 .2 mg/dL [employer] Phone: Bilirubin, Indirect CANNOT BE CALCULATED 0.00 - 1.00 mg/dL [employer] Phone: Bilirubin.indirect [Mass/Vol] mg/dL <0.31 mg/dL [employer] Phone: Free PSA/Total PSA [Mass fraction] 7.5 g/dL 6.4 - 8.3 g/dL [employer] Phone: Globulin NOT REPORTED 1.5 - 3.8 g/dL [facility] [employer] Work Phone: Interpretation and review of laboratory results Abnormal [facility] Work Phone: [facility] Work Phone: Urinalysis with MicroscopicO rdered By: Meghan León on 01-28-2021 - [facility] Work Phone: Amorphous, UA NOT REPORTED None [facility] CenterBetter ATM Servicesa [facility] Work Phone: Bacteria, UA 2+ Abnormal None [facility] [employer] Work Phone: Bilirubin Urine Negative NEGATIVE [facility] CenterBetter ATM Servicesselect medical [facility] Work Phone: Casts UA NOT REPORTED /LPF [facility] Work Phone: Color, UA YELLOW YELLOW [facility] [employer] Work Phone: Crystals, UA NOT REPORTED None /HPF [facility] Work Phone: Epithelial Cells UA 2 TO 5 [facility] [employer] Work Phone: Glucose, Ur 1+ Abnormal NEGATIVE [facility] Work Phone: Interpretation and review of laboratory results Abnormal [facility] Work Phone: Ketones Ql (U) Negative NEGATIVE [facility] Work Phone: Leukocyte esterase Test strip Ql (U) Negative NEGATIVE [facility] [employer] Work Phone: Mucus, UA NOT REPORTED None [facility] [employer] Work Phone: Nitrite, Urine Negative NEGATIVE [facility] [employer] Work Phone: Other Observations UA NOT REPORTED NOT REQ. M [facility] [employer] Work Phone: pH, UA 6.0 [facility] [employer] Work Phone: Protein, UA Negative NEGATIVE [facility] [employer] Work Phone: RBC, UA 0 TO 2 [employer] Phone: Renal Epithelial, UA NOT REPORTED 0 /HPF [employer] Work Phone: Specific [place], UA >1.030 High [employer] Phone: Trichomonas, UA NOT REPORTED None [employer] [facility] Work Phone: Turbidity UA CLEAR CLEAR [facility] Work Phone: Urinalysis Comments NOT REPORTED [facility] [employer] Work Phone: Urine Hgb Negative NEGATIVE [facility] Phone: Urobilinogen, Urine Normal Normal [facility] Phone: WBC, UA 0 TO 2 [facility] Phone: Yeast, UA NOT REPORTED None [employer] Phone: XR ABDOMEN (KUB) (SINGLE AP VIEW)Ordered By: Meghan León on 01-27-2021 Suggestion of a very small calcification over the lower pole of the left kidney. Probable hepatomegaly. No evidence of obstructive bowel process. [employer] Phone: EXAMINATION: ONE SUPINE XRAY VIEW(S) OF [...] battery pack over the left iliac wing. [employer] Phone: Vitaly, Mhpn Incoming Radiant Results From [employer] - 01/27/2021 1:29 PM EDT EXAMINATION: ONE [...] hepatomegaly. No evidence of obstructive bowel process. [employer] Phone: CT LUMBAR SPINE W CONTRASTOr dered By: Corey [place] on 01-20-2021 Shallow disc bulges at L4-5 and L5-S1. No significant focal disc protrusion or stenosis is appreciated. Spinal stimulator device. [employer] Phone: EXAMINATION: CT OF THE LUMBAR SPINE [...] No significant focal disc protrusion is detected. [employer] Phone: Vitaly, Mhpn Incoming Radiant Results From [employer] - 01/20/2021 3:43 PM EDT EXAMINATION: CT [...] or stenosis is appreciated. Spinal stimulator device. [employer] Phone: Lipid Panelon 08-13-2020 Cholesterol [Mass/Vol] 127 mg/dL <200 [facility], [place] Comment on above: Cholesterol Guidelines: <200 Desirable 200-240 Borderline >240 Undesirable Cholesterol in HDL [Mass/Vol] 28 mg/dL Low >40 [facility], [place] Comment on above: HDL Guidelines: <40 Undesirable 40-59 Borderline >59 Desirable Cholesterol in LDL [Mass/Vol] 31 mg/dL 0 - 130 mg/dL [place], [place] Comment on above: LDL Guidelines: <100 Desirable 100-129 Near to/above Desirable 130-159 Borderline >159 Undesirable Direct (measured) LDL and calculated LDL are not interchangeable tests. Cholesterol in VLDL [Mass/Vol] NOT REPORTED High 1 - 30 mg/dL [place], [place] Cholesterol.total/Poppy sterol in HDL [Mass ratio] 4.5 {ratio} <5 [place] Interpretation and review of laboratory results Abnormal [place] Triglyceride [Mass/Vol] 340 mg/dL High <150 M [place], [place] Comment on above: Triglyceride Guidelines: <150 Desirable 150-199 Borderline 200-499 High >499 Very high Based on AHA Guidelines for fasting triglyceride, June 2012. CT HEAD WO CONTRASTon 2019 No acute intracranial abnormality. [place], [place] EXAMINATION: CT OF THE HEAD WITHOUT [...] of the visualized skull or soft tissues. [place] Vitaly, Mhpn Incoming Radiant Results From [employer] - 07/25/2020 12:02 PM EDT EXAMINATION: CT [...] soft tissues. IMPRESSION: No acute intracranial abnormality. [place] XR ABDOMEN (KUB) (SINGLE AP VIEW)on 01-25-2020 1. No renal or ureteral calculi identified. 2. Mild constipation. [place] EXAMINATION: ONE SUPINE XRAY VIEW(S) OF [...] colon and rectum. No acute osseous abnormality. [place] Vitaly, Mhpn Incoming Radiant Results From [employer] - 01/25/2020 10:09 PM EDT EXAMINATION: ONE [...] or ureteral calculi identified. 2. Mild constipation. [place] C-Reactive Proteinon 020 CRP [Mass/Vol] 2.8 mg/L 0 - 5 mg/L [place], [place] CKon 12-28-2019 Total CK 107 U/L 26 - 192 U/L [place], [place] Hemoglobin A1Con 12-28-2019 Glucose [Mass/Vol] 263 mg/dL [place], [place] Comment on above: The ADA and AACC rec ommend providing the estimated average glucose result to permit better patient understanding of their HBA1c result. HbA1c (Bld) [Mass fraction] 10.8 % High 4.8 - 5.9 % [place] Interpretation and review of laboratory results Abnormal [place] IgAon 12-28-2019 IgA [Mass/Vol] 225 mg/dL 70 - 400 mg/dL [place] IgGon 12-28-2019 IgG [Mass/Vol] 768 mg/dL 700 - 1600 mg/dL [place] IgMon 12-28-2019 IgM [Mass/Vol] 97 mg/dL 40 - 230 mg/dL [place] Lactate Dehydrogenaseon LD 151 U/L 135 - 214 U/L [place], [place] Sedimentation Rateon 020 Sed Rate 14 mm 0 - 20 mm [place] T4on 12-28-2019 T4, Total 6.7 ug/dL 4.5 - 12 ug/dL [place] T4, Freeon 12-28-2019 Thyroxine, Free 1.02 ng/dL 0.93 - 1.7 ng/dL [place] TSH without Reflexon 020 TSH Qn 0.70 m[IU]/L [place], [place] ALTOrdered By: Flip izquierdo 10-18-2019 ALT [Catalytic activity/Vol] 26 U/L 5 - 33 U/L [facility] [employer] Phone: ASTOrdered By: Flip izquierdo 10-18-2019 AST [Catalytic activity/Vol] 20 U/L <32 [facility] Phone: AmylaseOrdered By: Flip vernon on 10-18-2019 Amylase [Catalytic activity/Vol] 45 U/L 28 - 100 U/L [facility] [employer] Phone: Basic Metabolic PanelOrdered By: Flip Dodson on 10-18-2019 Anion gap [Moles/Vol] 17 mmol/L 9 - 17 mmol/L [employer] Phone: Bun/Cre Ratio 25 High [facility] [employer] Work Phone: Calcium [Mass/Vol] 9.6 mg/dL 8.6 - 10. 4 mg/dL [employer] Phone: Chloride [Moles/Vol] 96 mmol/L Low 98 - 10 7 mmol/L [facility] Phone: CO2 [Moles/Vol] 22 mmol/L 20 - 31 mmol/L [employer] Phone: Creatinine [Mass/Vol] 0.63 mg/dL 0.5 - 0.9 mg/dL [employer] Phone: GFR >60 >60 mL/min [employer] Phone: GFR Comment [facility] Phone: Comment on above: Average GFR for 40-4 9 years old: 99 mL/min/1.73sq m Chronic Kidney Disease: <60 mL/min/1.73sq m Kidney failure: <15 mL/min/1.73sq m eGFR calculated using average adult body mass. Additional eGFR calculator available at: http://www.[employer]log[employer]/multiple_crcl_2012.htm GFR Non- >60 >60 mL/min [facility] Phone: GFR Staging [facility] Phone: Comment on above: Stage 1: Some kidney damage normal GFR Stage 2: Mild kidney damage GFR 60-89 Stage 3: Moderate kidney damage GFR 30-59 Stage 4: Severe kidney damage GFR 15-29 Stage 5: Severe kidney damage GFR <15 ESRD - chronic treatment by dialysis or transplant Glucose [Mass/Vol] 389 mg/dL High 70 - 99 mg/dL [employer] Phone: Interpretation and review of laboratory results Abnormal [employer] Phone: Potassium [Moles/Vol] 4.4 mmol/L 3.7 - 5.3 mmol/L [employer] Work Phone: Sodium [Moles/Vol] 135 mmol/L 135 - 144 mmol/L [employer] Work Phone: Urea nitrogen [Mass/Vol] 16 mg/dL 6 - 20 mg/dL [employer] Phone: CBC Auto DifferentialOrdered By: Flip Dodson on 10-18-2019 Absolute Eos # 0.24 [employer] [facility] Work Phone: Absolute Immature Granulocyte 0.10 [employer] Work Phone: Absolute Lymph # 3.09 [employer] [facility] Work Phone: Absolute [place] # 0.50 [employer] [facility] Work Phone: Basophils (Bld) [#/Vol] 0.09 10*3/uL [employer] Work Phone: Basophils/100 WBC (Bld) 1 % 0 - 2 % M [facility] Work Phone: Differential Type NOT REPORTED [facility] Phone: Eosinophils/100 WBC (Bld) 3 % 1 - 4 % [employer] Phone: Erythrocyte distribution width (RBC) [Ratio] 11.7 % Low 11.8 - 14.4 % [facility] Phone: Hematocrit (Bld) [Volume fraction] 45.7 % 36.3 - 47.1 % [employer] Phone: Hemoglobin (Bld) [Mass/Vol] 14.4 g/dL 11.9 - 15.1 g/dL [employer] Phone: Immature granulocytes/100 WBC (Bld) 1 % High 0 [facility] Phone: Interpretation and review of laboratory results Abnormal [facility] Phone: Lymphocytes/100 WBC (Bld) 39 % 24 - 43 % [facility] Work Phone: MCH (RBC) [Entitic mass] 30.4 pg 25.2 - 33.5 pg [employer] Phone: MCHC (RBC) [Mass/Vol] 31.5 g/dL 28.4 - 34.8 g/dL [facility] Phone: MCV (RBC) [Entitic vol] 96.4 fL 82.6 - 102.9 fL [facility] Work Phone: Monocytes/100 WBC (Bld) 6 % 3 - 12 % M [employer] [facility] Work Phone: NRBC Automated 0.0 0.0 per 100 WBC [facility] Phone: Platelet Estimate NOT REPORTED [facility] Phone: Platelet mean volume (Bld) [Entitic vol] 9.1 fL 8.1 - 13.5 fL [facility] Work Phone: Platelets (Bld) [#/Vol] 388 10*3/uL [employer] Work Phone: RBC (Bld) [#/Vol] 4.74 10*6/uL 3.95 - 5.1 1 m/uL [facility] Phone: RBC morphology finding Nom (Bld) NOT REPORTED [facility] [employer] Work Phone: Segmented neutrophils/100 WBC (Bld) 50 % 36 - 65 % [facility] Work Phone: Segs Absolute 4.00 [employer] [facility] [employer] Work Phone: WBC (Bld) [#/Vol] 8.0 10*3/uL [facility] Phone: WBC Morphology NOT REPORTED [employer] [facility] Work Phone: LipaseOrdered By: Flip bautista on 10-18-2019 Lipase [Catalytic activity/Vol] 35 U/L 13 - 60 U/L [employer] Phone: US GALLBLADDER RUQOrdered By : Flip Dodson on 10-18-2019 No acute abnormality. Fatty liver. [employer] Phone: EXAMINATION: RIGHT UPPER QUADRANT ULTRASOUND 10/18/2019 [...] No evidence of right upper quadrant ascites. [employer] Phone: Vitaly, [facility] Incoming Radiant Results From [employer] - 10/18/2019 2:07 PM EST EXAMINATION: RIGHT [...] ascites. IMPRESSION: No acute abnormality. Fatty liver. [employer] Phone: EKG 12 LeadOrdered By: Corey Cleveland on 10-03-2019 Atrial Rate 91 BPM [employer] Phone: P Lamar 64 degrees [employer] Phone: P-R Interval 164 ms [employer] Phone: Q-T Interval 388 ms [employer] Phone: QRS Duration 90 ms [employer] Phone: QTc Calculation (Bazett) 477 ms [employer] Phone: R Lamar 15 degrees [employer] Phone: T Lamar 58 degrees [employer] Phone: Ventricular Rate 91 BPM [employer] Work Phone: Normal sinus rhythm Normal ECG When compared with ECG of 26-MAR-2019 16:56, No significant change was found Confirmed by SHARON VARGAS ([id number]) on 10/03/2019 10:54:07 PM [employer] Phone: Vitaly, Mhpn Incoming Ekg Results From [facility] [place] - 10/03/2019 10:54 PM EST Normal sinus rhythm Normal ECG When compared with ECG of 26-MAR-2019 16:56, No significant change was found Confirmed by SHARON VARGAS ([id number]) on 10/03/2019 10:54:07 PM [employer] Phone: Otheron 08-24-2019 Findings suggest gastroparesis for solid materials. [place] EXAMINATION: NUCLEAR MEDICINE GASTRIC EMPTYING STUDY [...] retention, hiatal hernia or reflux was observed. [place], [place] Vitaly, Mhpn Incoming Radiant Results From [facility] - 08/24/2019 10:08 AM EST EXAMINATION: NUCLEAR [...] IMPRESSION: Findings suggest gastroparesis for solid materials. [place] US HEAD NECK SOFT TISSUE THY [...] more than four nodules should be followed. [place] EXAMINATION: THYROID ULTRASOUND 08/03/2019 COMPARISON: None [...] (2) 2. Echogenicity: Hypoechoic (2) 3. Shape: [id number]-[id number] (0) 4. Margins: Smooth (0) 5. Echogenic foci: None (0) ACR TI-RADS total points: 4 ACR TI-RADS risk category: TR4 Prior biopsy: Unknown. Cervical lymphadenopathy: No abnormal lymph nodes in the imaged portions of the neck. [place], [place] Vitaly, pn Incoming Radiant Results From [employer] - 08/03/2019 3:19 PM EST EXAMINATION: THYROID [...] (2) 2. Echogenicity: Hypoechoic (2) 3. Shape: Wwile-hnmr-qedt (0) 4. Margins: Smooth (0) 5. Echogenic [...] more than four nodules should be followed. [place] CT ABDOMEN PELVIS W IV CONTR AST Additional Contrast? Oralon 07-30-2019 1. No acute inflammatory process identified. 2. Bilateral punctate nephrolithiasis. 3. Hepatomegaly with steatosis. [place], [place] EXAMINATION: CT OF THE ABDOMEN AND [...] thoracic neurostimulator. No acute osseous abnormality identified. [place] Vitaly, Mhpn Incoming Radiant Results From [facility] - 07/30/2019 3:42 PM EST EXAMINATION: CT [...] Bilateral punctate nephrolithiasis. 3. Hepatomegaly with steatosis. [place] CBC Auto Differentialon 10- Basophils (Bld) [#/Vol] 0.06 10*3/uL [place] Basophils/100 WBC (Bld) 1 % 0 - 2 % M [place] Differential Type NOT REPORTED [place] Eosinophils (Bld) [#/Vol] 0.33 10*3/uL [place] Eosinophils/100 WBC (Bld) 4 % 1 - 4 % [place] Erythrocyte distribution width (RBC) [Ratio] 12.1 % 11.8 - 14.4 % [place] Hematocrit (Bld) [Volume fraction] 45.8 % 36.3 - 47.1 % [place] Hemoglobin (Bld) [Mass/Vol] 14.6 g/dL 11.9 - 15.1 g/dL [place] Immature granulocytes (Bld) [#/Vol] 0.12 10*3/uL [place] Immature granulocytes (Bld) [#/Vol] 1 % High 0 [place] Interpretation and review of laboratory results Abnormal [place] Lymphocytes (Bld) [#/Vol] 3.67 10*3/uL [place] Lymphocytes/100 WBC (Bld) 42 % 24 - 43 % [place] MCH (RBC) [Entitic mass] 30.3 pg 25.2 - 33.5 pg [place] MCHC (RBC) [Mass/Vol] 31.9 g/dL 28.4 - 34.8 g/dL [place] MCV (RBC) [Entitic vol] 95.0 fL 82.6 - 102.9 fL [place] Monocytes (Bld) [#/Vol] 0.66 10*3/uL [place] Monocytes/100 WBC (Bld) 8 % 3 - 12 % [place] Platelet mean volume (Bld) [Entitic vol] 9.1 fL 8.1 - 13.5 fL [place], [place] Platelets (Bld) [#/Vol] NOT REPORTED [place] Platelets (Bld) [#/Vol] 406 10*3/uL [place] RBC (Bld) [#/Vol] 4.82 10*6/uL 3.95 - 5.1 1 m/uL [place] RBC morphology finding Nom (Bld) NOT REPORTED [place] Segmented neutrophils/100 WBC (Bld) 44 % 36 - 65 % [place] Segs Absolute 3.94 [place] WBC (Bld) [#/Vol] 8.8 10*3/uL [place] WBC (Bld) [#/Vol] 0.0 10*3/uL 0.0 per 10 0 WBC [place] WBC Morphology NOT REPORTED [place], [place] Comprehensive Metabolic Pane yamilet 07-20-2019 Albumin [Mass/Vol] 4.3 g/dL 3.5 - 5.2 g/dL [place] Albumin/Globulin [Mass ratio] 1.2 {ratio} [place] ALP [Catalytic activity/Vol] 85 U/L 35 - 104 U/L [place] ALT [Catalytic activity/Vol] 30 U/L 5 - 33 U/L [place] Anion gap [Moles/Vol] 14 mmol/L 9 - 17 mmol/L [place] AST [Catalytic activity/Vol] 23 U/L <32 [place] Bilirubin Ql (U) 0.21 mg/dL Low 0.3 - 1.2 mg/dL [place] Bun/Cre Ratio 25 [place] Calcium [Mass/Vol] 9.9 mg/dL 8.6 - 10. 4 mg/dL [place] Chloride [Moles/Vol] 98 mmol/L 98 - 10 7 mmol/L [place] CO2 [Moles/Vol] 24 mmol/L 20 - 31 mmol/L [place] Creatinine [Mass/Vol] 0.63 mg/dL 0.5 - 0.9 mg/dL [place] GFR >60 >60 mL/min [place] GFR Non- >60 >60 mL/min [place] Glucose [Mass/Vol] 328 mg/dL High 70 - 99 mg/dL [place] Interpretation and review of laboratory results Abnormal [place] Potassium [Moles/Vol] 4.9 mmol/L 3.7 - 5.3 mmol/L [place] Protein [Mass/Vol] 7.8 g/dL 6.4 - 8.3 g/dL [place] Sodium [Moles/Vol] 136 mmol/L 135 - 144 mmol/L [place] Urea nitrogen [Mass/Vol] 16 mg/dL 6 - 20 mg/dL [place] Hemoglobin A1Con 07-20-2019 Glucose [Mass/Vol] 260 mg/dL [place] Comment on above: The ADA and AACC rec ommend providing the estimated average glucose result to permit better patient understanding of their HBA1c result. HbA1c (Bld) [Mass fraction] 10.7 % High 4.8 - 5.9 % [place] Interpretation and review of laboratory results Abnormal [place] Lipaseon 07-20-2019 Lipase [Catalytic activity/Vol] 36 U/L 13 - 60 U/L [place] Metabolic Panelon 07-20-2019 GFR/1.73 sq M predicted among non-blacks MDRD (S/P/Bld) [Vol rate/Area] [place] Comment on above: Stage 1: Some [...] body mass. Additional eGFR calculator available at: http://www.[employer]/multiple_crcl_2012.htm Glucose, Fastingon 9 Glucose [Mass/Vol] 152 mg/dL High 70 - 99 mg/dL [place] Interpretation and review of laboratory results Abnormal [place] Basic Metabolic Panelon Anion gap [Moles/Vol] 17 mmol/L 9 - 17 mmol/L [place] Bun/Cre Ratio 18 [place] Calcium [Mass/Vol] 9.7 mg/dL 8.6 - 10. 4 mg/dL [place] Chloride [Moles/Vol] 96 mmol/L Low 98 - 10 7 mmol/L [place] CO2 [Moles/Vol] 22 mmol/L 20 - 31 mmol/L [place] Creatinine [Mass/Vol] 0.65 mg/dL 0.5 - 0.9 mg/dL [place] GFR >60 >60 mL/min [place] GFR Non- >60 >60 mL/min [place] Glucose [Mass/Vol] 310 mg/dL High 70 - 99 mg/dL [place] Interpretation and review of laboratory results Abnormal [place] Potassium [Moles/Vol] 4.4 mmol/L 3.7 - 5.3 mmol/L [place] Sodium [Moles/Vol] 135 mmol/L 135 - 144 mmol/L [place] Urea nitrogen [Mass/Vol] 12 mg/dL 6 - 20 mg/dL [place] Hemoglobin A1Con 06-04-2019 Glucose [Mass/Vol] 263 mg/dL [place] Comment on above: The ADA and AACC rec ommend providing the estimated average glucose result to permit better patient understanding of their HBA1c result. HbA1c (Bld) [Mass fraction] 10.8 % High 4.8 - 5.9 % [place] Interpretation and review of laboratory results Abnormal [place] LDL Cholesterol, Directon Cholesterol in LDL [Mass/Vol] 64 mg/dL <100 [place] Comment on above: LDL Guidelines: <100 Desirable 100-129 Near to/above Desirable 130-159 Borderline >159 Undesirable Direct (measured) LDL and calculated LDL are not interchangeable tests. Lipid Panelon 06-04-2019 Cholesterol [Mass/Vol] 166 mg/dL <200 [place] Comment on above: Cholesterol Guidelines: <200 Desirable 200-240 Borderline >240 Undesirable Cholesterol in HDL [Mass/Vol] 28 mg/dL Low >40 [place] Comment on above: HDL Guidelines: <40 Undesirable 40-59 Borderline >59 Desirable Cholesterol in LDL [Mass/Vol] 0 - 130 mg/dL [place] Comment on above: Calculation not tarcy d for Triglyceride value greater than 400 mg/dL. Direct LDL reflexed LDL Guidelines: <100 Desirable 100-129 Near to/above Desirable 130-159 Borderline >159 Undesirable Direct (measured) LDL and calculated LDL are not interchangeable tests. Cholesterol in VLDL [Mass/Vol] 1 - 30 mg/dL [place] Cholesterol.total/Poppy sterol in HDL [Mass ratio] 5.9 {ratio} High <5 [place] Interpretation and review of laboratory results Abnormal [place] Triglyceride [Mass/Vol] 665 mg/dL High <150 [place] Comment on above: Triglyceride Guidelines: <150 Desirable 150-199 Borderline 200-499 High >499 Very high Based on AHA Guidelines for fasting triglyceride, June 2012. Metabolic Panelon 06-04-2019 GFR/1.73 sq M predicted among non-blacks MDRD (S/P/Bld) [Vol rate/Area] [place] Comment on above: Average GFR for 40-4 9 years old: 99 mL/min/1.73sq m Chronic Kidney Disease: <60 mL/min/1.73sq m Kidney failure: <15 mL/min/1.73sq m eGFR calculated using average adult body mass. Additional eGFR calculator available at: http://www.[employer]logix/multiple_crcl_2012.htm Stage 1: Some kidney damage normal GFR [...] 97.2 [degF] Meera Mike DPM Work Phone: [facility] 09-15-2024 16:13-0500 Diastolic blood pressure 62 mm[Hg] Meera Mike DPM Work Phone: [facility] [employer] 09-15-2024 16:13-0500 Heart rate 87 /min Meera Mike DPM Work Phone: [facility] [employer] 09-15-2024 16:13-0500 Respiratory rate 16 /min Meera Mike DPM Work Phone: [facility] [employer] 09-15-2024 16:13-0500 SaO2% (BldA) [Mass fraction] 92 % Meera Mike DPM Work Phone: [facility] 09-15-2024 16:13-0500 Systolic blood pressure 127 mm[Hg] Meera Mike DPM Work Phone: [facility] 09-14-2024 06:26-0500 Body height 167.6 cm Meera Mike DPM Work Phone: [facility] 09-14-2024 06:26-0500 Body mass index (BMI) [Ratio] 34.72 kg/m2 Meera Mike DPM Work Phone: [facility] [employer] 09-14-2024 06:26-0500 Body weight 97.52 kg Meera Mike DPM Work Phone: [facility] [employer] 09-07-2024 13:04-0500 Body height 167.6 cm Meera Mike DPM Work Phone: [facility] [employer] 09-07-2024 13:04-0500 Body mass index (BMI) [Ratio] 34.7 kg/m2 Meera Rashid DPM Work Phone: [facility] [employer] 09-07-2024 13:04-0500 Body temperature 99.61 [degF] Meera Mike DPM Work Phone: [facility] 09-07-2024 13:04-0500 Body weight 97.52 kg Meera Rashid DPM Work Phone: [facility] 09-07-2024 13:04-0500 Diastolic blood pressure 68 mm[Hg] Meenaeulogio Mike DPM Work Phone: [facility] 09-07-2024 13:04-0500 Heart rate 94 /min Meera Mike DPM Work Phone: [facility] 09-07-2024 13:04-0500 Respiratory rate 18 /min Meera Mike DPM Work Phone: [facility] 09-07-2024 13:04-0500 SaO2% (BldA) [Mass fraction] 96 % Meera Mike DPM Work Phone: [facility] 09-07-2024 13:04-0500 Systolic blood pressure 112 mm[Hg] Meera Mike DPM Work Phone: [facility] 07-26-2024 16:00-0400 Respiratory rate 14 /min Meenaeulogio Mike DPM Work Phone: [facility] 07-26-2024 07:07-0400 Body temperature 97.7 [degF] Meera Mike DPM Work Phone: [facility] 07-26-2024 07:07-0400 Diastolic blood pressure 67 mm[Hg] Meera Mike DPM Work Phone: [facility] 07-26-2024 07:07-0400 Heart rate 92 /min Meera Mike DPM Work Phone: [facility] [employer] 07-26-2024 07:07-0400 SaO2% (BldA) [Mass fraction] 91 % Meera Mike DPM Work Phone: [facility] [employer] 07-26-2024 07:07-0400 Systolic blood pressure 121 mm[Hg] Meera Mike DPM Work Phone: [facility] [employer] 07-23-2024 12:23-0400 Body height 167.6 cm Meera Mike DPM Work Phone: [facility] [employer] 07-23-2024 12:23-0400 Body mass index (BMI) [Ratio] 34.4 kg/m2 Meera Mike DPM Work Phone: [facility] [employer] 07-23-2024 12:23-0400 Body weight 96.62 kg Meera Mike DPM Work Phone: [facility] [employer] 07-18-2024 14:54-0400 Body height 167.6 cm St[facility] 3 [facility] [employer] 07-18-2024 14:54-0400 Body mass index (BMI) [Ratio] 34.38 kg/m2 [facility] 3 [facility] [employer] 07-18-2024 14:54-0400 Body temperature 97.7 [degF] St[facility] 3 [facility] [employer] 07-18-2024 14:54-0400 Body weight 96.62 kg [facility] 3 [facility] [employer] 07-18-2024 14:54-0400 Diastolic blood pressure 59 mm[Hg] Stcz 3 [facility] [employer] 07-18-2024 14:54-0400 Heart rate 83 /min [facility] 3 [facility] [employer] 07-18-2024 14:54-0400 Respiratory rate 20 /min [facility] 3 [facility] [employer] 07-18-2024 14:54-0400 SaO2% (BldA) [Mass fraction] 93 % Stcz 3 [employer] 07-18-2024 14:54-0400 Systolic blood pressure 107 mm[Hg] Stcz 3 [facility] [employer] 07-14-2024 00:54-0400 SaO2% (BldA) [Mass fraction] 94 % Stacy Awan MD Work Phone: [facility] [employer] 07-13-2024 23:46-0400 Body temperature 98.01 [degF] Stacy Awan MD Work Phone: [facility] [employer] 07-13-2024 23:46-0400 Diastolic blood pressure 62 mm[Hg] Stacy Awan MD Work Phone: [facility] [employer] 07-13-2024 23:46-0400 Heart rate 92 /min Stacy Awan MD Work Phone: [facility] [employer] 07-13-2024 23:46-0400 Respiratory rate 16 /min Stacy Awan MD Work Phone: [facility] [employer] 07-13-2024 23:46-0400 Systolic blood pressure 149 mm[Hg] Stacy Awan MD Work Phone: [facility] [employer] 07-13-2024 20:26-0400 Diastolic blood pressure 101 mm[Hg] Karime Patel DO Work Phone: [facility] [employer] 07-13-2024 20:26-0400 SaO2% (BldA) [Mass fraction] 94 % Karime Patel DO Work Phone: [employer] 07-13-2024 20:26-0400 Systolic blood pressure 143 mm[Hg] Karime Patel DO Work Phone: [facility] [employer] 07-13-2024 13:43-0400 Body temperature 97.3 [degF] Karime Patel DO Work Phone: [facility] [employer] 07-13-2024 13:43-0400 Heart rate 97 /min Karime Patel DO Work Phone: [employer] [facility] 07-13-2024 13:43-0400 Respiratory rate 16 /min Karime Patel DO Work Phone: [facility] 06-16-2023 20:45-0400 Diastolic blood pressure 76 mm[Hg] Vivian Might [employer] Work Phone: [facility] 06-16-2023 20:45-0400 Heart rate 88 /min Vivian Might [employer] PROFESSION[employer] Work Phone: [facility] 06-16-2023 20:45-0400 Respiratory rate 16 /min Vivian Might AUT[employer]OTIVE PROFESSION[employer] Work Phone: [facility] 06-16-2023 20:45-0400 SaO2% (BldA) [Mass fraction] 97 % Vivian Might [employer] PROFESSION[employer] Work Phone: [facility] 06-16-2023 20:45-0400 Systolic blood pressure 128 mm[Hg] Vivian Might [employer] Work Phone: [facility] 06-16-2023 17:32-0400 Body temperature 99 [degF] Vivian Might [employer] Work Phone: [facility] 06-14-2023 11:31-0400 Respiratory rate 18 /min Emiliano Segundo MD [facility] [employer] [employer] 06-14-2023 07:34-0400 SaO2% (BldA) [Mass fraction] 95 % Emiliano Segundo MD [facility] 06-14-2023 06:45-0400 Body temperature 97.59 [degF] Emiliano Segundo MD [facility] [employer] 06-14-2023 06:45-0400 Diastolic blood pressure 77 mm[Hg] Emiliano Segundo MD [facility] 06-14-2023 06:45-0400 Heart rate 74 /min Emiliano Segundo [facility] 06-14-2023 06:45-0400 Systolic blood pressure 136 mm[Hg] Emiliano Segundo MD [facility] 09-19-2023 05:00-0400 Body mass index (BMI) [Ratio] 33.88 kg/m2 Emiliano Segundo MD [facility] 06-14-2023 05:00-0400 Body weight 95.21 kg Emiliano Segundo MD [facility] 06-13-2023 10:06-0400 Body height 167.6 cm Emiliano Segundo MD [facility] 01-19-2023 20:55-0400 Body height 167.6 cm [facility] 1 [facility] 01-19-2023 20:55-0400 Body mass index (BMI) [Ratio] 33.89 kg[facility]m2 [facility] 01-19-2023 20:55-0400 Body weight 95.25 kg [facility] 12-08-2022 14:15-0400 Diastolic blood pressure 76 mm[Hg] Tari Curtis MD Work Phone: [facility] 12-08-2022 14:15-0400 Heart rate 88 /min Tari Curtis MD Work Phone: [facility] 12-08-2022 14:15-0400 Respiratory rate 16 /min Tari Curtis MD Work Phone: [facility] 12-08-2022 14:15-0400 SaO2% (BldA) [Mass fraction] 95 % Tari Curtis MD Work Phone: [facility] 12-08-2022 14:15-0400 Systolic blood pressure 135 mm[Hg] Tari Curtis MD Work Phone: [facility] 12-08-2022 13:48-0400 Body temperature 98.1 [degF] Tari Curtis MD Work Phone: [facility] 12-08-2022 12:16-0400 Body mass index (BMI) [Ratio] 33.99 kg/m2 Tari Curtis MD Work Phone: [facility] 12-08-2022 12:16-0400 Body weight 95.53 kg Tari Curtis MD Work Phone: [employer] 11-25-2022 16:01-0500 Body height 167.6 cm Tari Curtis MD Work Phone: [employer] 09-07-2022 12:20-0500 Body height 167.[address] Other [facility] [employer] Other 08-06-2022 18:00-0500 Body temperature 98.1 [degF] Vivian Might [employer] PROFESSION[employer] Work Phone: [employer] 08-06-2022 18:00-0500 Diastolic blood pressure 51 mm[Hg] Vivian Might [employer] Work Phone: [employer] 08-06-2022 18:00-0500 Heart rate 99 /min Vivian Might [employer] Work Phone: [employer] 08-06-2022 18:00-0500 Respiratory rate 18 /min Vivian Might [employer] Work Phone: [employer] 08-06-2022 18:00-0500 SaO2% (BldA) [Mass fraction] 94 % Vivian Might [employer] Work Phone: [employer] 08-06-2022 18:00-0500 Systolic blood pressure 102 mm[Hg] Vivian Might [employer]IVE PROFESSION[employer] Work Phone: [employer] 08-06-2022 13:59-0500 Body height 167.6 cm Vivian Might [employer] PROF[employer] Work Phone: [employer] 08-06-2022 13:59-0500 Body mass index (BMI) [Ratio] 34.7 kg/m2 Vivian Might [employer] PROF[employer] Work Phone: [employer] 08-06-2022 13:59-0500 Body weight 97.52 kg Vivian Might [employer]OT[employer] PROF[employer] Work Phone: [employer] 01-20-2021 14:45-0400 Diastolic blood pressure 65 mm[Hg] [facility] [employer] Phone: 01-20-2021 14:45-0400 Heart rate 94 /min [facility] [employer] Phone: 01-20-2021 14:45-0400 Respiratory rate 14 /min [facility] [employer] Phone: 01-20-2021 14:45-0400 SaO2% (BldA) [Mass fraction] 95 % [facility] [employer] Phone: 01-20-2021 14:45-0400 Systolic blood pressure 123 mm[Hg] [facility] [employer] Phone: 01-20-2021 11:44-0400 Body height 167.6 cm [facility] [employer] Phone: 01-20-2021 11:44-0400 Body mass index (BMI) [Ratio] 30.67 kg/m2 [facility] [employer] Phone: 01-20-2021 11:44-0400 Body temperature 97.39 [degF] [facility] [employer] Phone: 01-20-2021 11:44-0400 Body weight 86.18 kg [facility] [employer] Phone: Encounters Encounter Date Encounter Type Care Provider Facility Start: 01-29-2025 End: 01-29-2025 Subsequent hospital visit by physician Vineet Block PT [facility] Start: 01-29-2025 End: 01-29-2025 ambulatory Vivian GODINEZ Facility: [facility] Start: 01-25-2025 End: 01-25-2025 ambulatory VIVIAN Brown [facility] Start: 01-25-2025 End: 01-25-2025 Subsequent hospital visit by physician Vivian Bullard CNP Work Phone: [employer] [facility] Start: 01-24-2025 End: 01-24-2025 Subsequent hospital visit by physician Alanna Chappell PTA [facility] Start: 01-24-2025 ambulatory VIVIAN W MIGHT Janette Meng [facility] Start: 01-22-2025 End: 01-22-2025 Subsequent hospital visit by physician Hussein Rich PTA [facility] Start: 01-17-2025 End: 01-17-2025 ambulatory [facility] Start: 01-17-2025 End: 01-17-2025 Subsequent hospital visit by physician Makayla Lozoya PTA [facility] Comment on above: Arrived Start: 01-14-2025 End: 01-14-2025 Subsequent hospital visit by physician Makayla Lozoya PTA [facility] Start: 01-10-2025 End: 01-10-2025 ambulatory VIVIAN W MIGHT [facility] Start: 01-10-2025 End: 01-10-2025 Subsequent hospital visit by physician Hussein Rich PTA [facility] Physical Therapy Comment on above: Arrived Start: 01-08-2025 End: 01-08-2025 ambulatory VIVIAN W MIGHT [facility] Start: 01-08-2025 End: 01-08-2025 Subsequent hospital visit by physician Hussein Rich PTA [facility] Physical Therapy Comment on above: Arrived Start: 01-03-2025 End: 01-03-2025 ambulatory MEERA MIKE [facility] Start: 01-02-2025 End: 01-02-2025 ambulatory VIVIAN W MIGHT [facility] Start: 01-02-2025 End: 01-02-2025 Subsequent hospital visit by physician Phu Mora [facility] Physical Therapy Comment on above: Arrived Start: 12-31-2024 End: 12-31-2024 ambulatory [facility]IVIAN W MIGHT [facility] Start: 12-31-2024 End: 12-31-2024 Subsequent hospital visit by physician Alanna Chappell PTA [facility] Physical [facility] Comment on above: Arrived Start: 12-26-2024 End: 12-26-2024 ambulatory [facility]IAN [facility] Start: 12-26-2024 End: 12-26-2024 Subsequent hospital visit by physician Phu Mora [facility] Physical Therapy Comment on above: Arrived Start: 12-24-2024 End: 12-24-2024 ambulatory [facility]IVIAN W MIGHT [facility] Start: 12-24-2024 End: 12-24-2024 Subsequent hospital visit by physician Alanna Chappell PTA [facility] Physical Therapy Comment on above: Arrived Start: 12-19-2024 End: 12-19-2024 ambulatory VIVIAN W MIGHT [facility] Start: 12-19-2024 End: 12-19-2024 Subsequent hospital visit by physician Hussein Rich PTA [facility] Physical Therapy Comment on above: Arrived Start: 12-17-2024 End: 12-17-2024 Subsequent hospital visit by physician Alanna Chappell PTA [facility] Physical Therapy Start: 12-12-2024 End: 12-12-2024 ambulatory VIVIAN W MIGHT [facility] Start: 12-12-2024 End: 12-12-2024 Subsequent hospital visit by physician Phu Mora [facility] Physical Therapy Comment on above: Arrived Start: 12-10-2024 End: 12-10-2024 ambulatory VIVIAN W MIGHT [facility] Start: 12-10-2024 End: 12-10-2024 Subsequent hospital visit by physician Disha Escamilla PTA [facility] Physical Therapy Comment on above: Arrived Start: 12-05-2024 End: 12-05-2024 ambulatory VIVIAN W MIGHT [facility] Start: 12-05-2024 End: 12-05-2024 Subsequent hospital visit by physician Makayla Lozoya PTA [facility] Physical Therapy Comment on above: Arrived Start: 12-03-2024 End: 12-03-2024 ambulatory VIVIAN W MIGHT [facility] Start: 12-03-2024 End: 12-03-2024 Subsequent hospital visit by physician Makayla Lozoya PTA [facility] Physical Therapy Comment on above: Arrived Start: 11-29-2024 End: 11-29-2024 Subsequent hospital visit by physician Alanna Chappell PTA [facility] Physical Therapy Start: 11-27-2024 End: 11-27-2024 ambulatory MEERA NICOLEINSON [facility] Start: 11-27-2024 End: 11-27-2024 Subsequent hospital visit by physician Vineet Matos PT [facility] Physical Therapy Comment on above: Arrived Start: 11-22-2024 End: 11-22-2024 ambulatory [facility] Start: 11-22-2024 ambulatory VIVIAN W [facility] Start: 10-25-2024 End: 10-25-2024 [facility] Start: 10-23-2024 End: 10-23-2024 ambulatory Vivian Mao Canelo LOAIZA-WEB SIZER Facility: [facility] Start: 10-11-2024 End: 10-11-2024 ambulatory VIVIAN OSEGUERA [facility] Start: 10-11-2024 End: 10-11-2024 Subsequent hospital visit by physician Vivian Oseguera APRN - WEB SI[employer]ER Work Phone: [facility] Laboratory Start: 10-11-2024 End: 10-11-2024 [facility] Start: 09-27-2024 End: 09-27-2024 [facility] Start: 09-14-2024 End: 09-15-2024 [facility] Start: 09-14-2024 End: 09-15-2024 Subsequent hospital visit by physician Meera Mike DPM Work Phone: [facility] Med Surg Comment on above: Post-op pain (Primar y Dx); Charcot ankle, left; Diabetes (HCC) Start: 09-07-2024 End: 09-11-2024 [facility] Start: 09-07-2024 End: 09-11-2024 Subsequent hospital visit by physician Meera Mike DPM Work Phone: [facility] Pre-Admit Testing Start: 08-31-2024 End: 09-02-2024 [facility] Start: 08-31-2024 End: 09-02-2024 Subsequent hospital visit by physician Sara [facility] Scan Room [facility] CT Scan Comment on above: Closed dislocation [...] 07-18-2024 End: 07-22-2024 ambulatory VIVIAN Lauryn OSEGUERA [facility] Start: 07-18-2024 End: 07-22-2024 Subsequent hospital visit by physician Kaushik Rosas 3 [facility] Pre-Admit Testing Start: 07-17-2024 End: 07-17-2024 ambulatory MEERA MIKE [facility] Start: 07-13-2024 End: 07-14-2024 Emergency department patient visit Stacy Awan MD Work Phone: [facility] ED Comment on above: Lisfranc dislocation , left, initial encounter (Primary Dx) Start: 07-13-2024 End: 07-13-2024 Emergency department patient visit Karime Patel DO Work Phone: [facility] ED Comment on above: Lisfranc dislocation , left, initial encounter (Primary Dx); Closed nondisplaced fracture of metatarsal bone of left foot, unspecified metatarsal, initial encounter Start: 07-02-2024 End: 07-04-2024 ambulatory VIVIANLORETO OSEGUERA [facility] Start: 07-02-2024 End: 07-04-2024 Subsequent hospital visit by physician [facility] Cat Scan Room [facility] Laboratory Comment on above: Recurrent pansinusit is Recurrent pansinusit is; Recurrent sinusitis Start: 06-12-2024 End: 06-12-2024 ambulatory Vivian Oseguera APRN-WEB SIZER Facility: [facility] Start: 06-11-2024 End: 06-11-2024 ambulatory Vivian Oseguera APRN-WEB SIZER Facility:[facility] Start: 06-08-2024 End: 06-08-2024 ambulatory VIVIAN W MIGHT [facility] Start: 06-08-2024 End: 06-08-2024 Subsequent hospital visit by physician Vivian Bullard CNP Work Phone: [facility] Laboratory Start: 05-22-2024 End: 05-22-2024 ambulatory VIVIAN W MIGHT [facility] Start: 05-22-2024 End: 05-22-2024 Subsequent hospital visit by physician Dread Sunshine [facility] Physical Therapy Comment on above: Arrived Start: 05-17-2024 End: 05-17-2024 ambulatory VIVIAN W MIGHT [facility] Start: 05-14-2024 End: 05-14-2024 ambulatory VIVIAN W MIGHT [facility] Start: 05-10-2024 End: 05-10-2024 ambulatory VIVIAN W MIGHT [facility] Start: 05-08-2024 End: 05-08-2024 ambulatory VIVIAN W MIGHT [facility] Start: 05-08-2024 End: 05-08-2024 ambulatory VIVIAN W MIGHT [facility] Start: 05-01-2024 End: 05-01-2024 ambulatory VIVIAN W MIGHT [facility] Start: 04-25-2024 End: 04-25-2024 ambulatory VIVIAN W MIGHT [facility] Start: 04-23-2024 End: 04-23-2024 ambulatory VIVIAN W MIGHT [facility] Start: 04-23-2024 End: 04-23-2024 Subsequent hospital visit by physician Phu Mora [facility] Physical Therapy Comment on above: Arrived Start: 04-16-2024 End: 04-16-2024 ambulatory VIVIAN W MIGHT [facility] Start: 04-12-2024 End: 04-12-2024 Subsequent hospital visit by physician Génesis Hickman PTA [facility] Physical Therapy Start: 04-12-2024 End: 04-12-2024 ambulatory VIVIAN W MIGHT [facility] Start: 04-11-2024 End: 04-11-2024 ambulatory VIVIAN W MIGHT [facility] Start: 03-30-2024 End: 03-30-2024 ambulatory [facility] MIGHT [facility] Start: 03-23-2024 End: 03-23-2024 ambulatory [facility] W MIGHT [facility] Start: 03-08-2024 End: 03-08-2024 ambulatory [facility] W MIGHT [facility] Start: 03-06-2024 End: 03-06-2024 ambulatory Rolan Sim APRN-WEB SIZER Facility: [facility] Start: 03-05-2024 End: 03-05-2024 ambulatory VIV[facility] W MIGHT [facility] Start: 03-01-2024 End: 03-01-2024 Subsequent hospital visit by physician Lary Rea PTA [facility] Physical Therapy Start: 2024 End: 2024 ambulatory [facility] W MIGHT [facility] Start: 02-16-2024 End: 02-16-2024 ambulatory VIVIAN Lauryn MIGHT [facility] Start: 02-16-2024 End: 02-16-2024 Subsequent hospital visit by physician Dread Sunshine PTA [facility] Physical Therapy Comment on above: Arrived Start: 02-08-2024 End: 02-08-2024 ambulatory [facility] Start: 02-06-2024 End: 02-06-2024 ambulatory VIVIAN W MIGHT [facility] Start: 01-16-2024 End: 01-16-2024 Subsequent hospital visit by physician Disha Escamilla PTA [facility] Physical Therapy Start: 12-07-2023 End: 12-09-2023 Subsequent hospital visit by physician Sara [facility] Radiology Comment on above: Lower leg edema Start: 06-16-2023 End: 06-16-2023 Emergency department patient visit Vivian Oseguera JOSSE Bullard CNP Work Phone: [facility] ED Comment on above: Syncope, unspecified syncope type (Primary Dx) Start: 06-10-2023 End: 06-14-2023 Evaluation and management of inpatient Emiliano Segundo MD [facility] SURG Comment on above: Recurrent syncope (P rimary Dx); Pneumonia of both lower lobes due to infectious organism Start: 02-25-2023 ambulatory NARENDRANATH LAKSHMIPATHY . Facility: Start: 02-08-2023 End: 02-08-2023 ambulatory NARENDRANATH LAKSHMIPATHY . Facility: Start: 01-27-2023 End: 01-28-2023 ambulatory NARENDRANATH LAKSHMIPATHY . Facility: Start: 01-19-2023 End: 01-19-2023 Subsequent hospital visit by physician [facility] Sleep 1 [facility] Sleep Center Comment on above: LAYNE (obstructive sle ep apnea) Start: 01-11-2023 End: 01-11-2023 ambulatory NARENDRANATH LAKSHMIPATHY . Facility: Start: 12-30-2022 End: 12-31-2022 ambulatory NARENDRANATH LAKSHMIPATHY . Facility: Start: 12-28-2022 End: 12-30-2022 Subsequent hospital visit by physician [facility] Mri Scanner [facility] MRI Comment on above: Thoracic neuritis Start: 12-08-2022 End: 12-08-2022 Subsequent hospital visit by physician Tari Curtis MD Work Phone: [facility] OR Comment on above: Screening for colon cancer Start: 11-30-2022 End: 12-01-2022 ambulatory NARENDRANATH LAKSHMIPATHY . Facility: Start: 11-23-2022 End: 11-23-2022 [facility] [address] [facility] Comment on above: Tired; Fatigue, unspecified type; LAYNE (obstructive sleep apnea) Start: 11-17-2022 End: 11-19-2022 Subsequent hospital visit by physician [facility] Mri Scanner [facility] MRI Comment on above: Lumbar radiculitis Start: 10-21-2022 End: 10-22-[address] DOCTOR URIBE Facility: Start: 10-08-2022 End: 10-08-2022 Patient encounter status [facility] EKG Start: 10-08-2022 End: 10-08-2022 Subsequent hospital visit by physician [facility] Personal Banking Representative [facility] EKG Comment on above: Syncope and collapse ; Preop cardiovascular exam; Dizziness; Primary hypertension; Mixed hyperlipidemia; Tobacco abuse counseling Start: 10-04-2022 Admission to same da y surgery [facility] Start: 10-04-2022 End: 10-04-2022 ambulatory NON STAFF Facility:[facility] Start: 10-01-2022 End: 10-01-2022 Subsequent hospital visit by physician [facility] Tilt Table Study [facility] Comment on above: Canceled (Other) Start: 09-30-2022 End: 09-30-2022 ambulatory NON STAFF Facility:[facility] Start: 09-30-2022 End: 09-30-2022 ambulatory NON STAFF [facility] Work Phone: Start: 09-30-2022 End: 09-30-2022 Patient encounter procedure [facility] Src-Vhw-Tzemuksd Testing Work Phone: Start: 09-29-2022 End: 09-29-2022 Subsequent hospital visit by physician [facility] Tilt Table Study [facility] Comment on above: Postural syncope Start: 09-21-2022 End: 09-21-2022 ambulatory NON STAFF Facility:[facility] Start: 09-21-2022 End: 09-21-2022 ambulatory NON STAFF [facility] Work Phone: Start: 09-21-2022 End: 09-21-2022 Patient encounter procedure [facility] Tpg-Azc-Fpzueslb Testing Work Phone: Start: 09-21-2022 End: 09-21-2022 Subsequent hospital visit by physician Vivian Bullard CNP Work Phone: [facility] Laboratory Comment on above: Controlled type 2 di abetes mellitus with diabetic polyneuropathy, with long-term current use of insulin (HCC) Start: 09-14-2022 End: 09-14-[address] DOCTOR URIBE Facility:[facility] Start: 09-10-2022 End: 09-10-2022 [facility] Comment on above: Arrived Start: 09-07-2022 Office outpatient vi sit 40 minutes Shiraz Sherman [facility] Neurosurgery Start: 09-07-2022 End: 09-07-[address] DOCTOR URIBE [facility] [employer] Other Start: 09-03-2022 End: 09-03-2022 [facility] Covid Screening Comment on above: Arrived Start: 08-26-2022 End: 08-27-[address] DOCTOR URIBE Facility:[facility] Start: 08-10-2022 End: 08-10-[address] COREY [place] . Facility:[facility] Start: 08-06-2022 End: 08-06-2022 Subsequent hospital visit by physician Vineet Matos PT [facility] Physical Therapy Start: 08-06-2022 End: 08-06-2022 Emergency department patient visit Vivian Bullard CNP Work Phone: [facility] ED Comment on above: Rib pain on left erik e (Primary Dx) Start: 08-04-2022 End: 08-06-2022 Subsequent hospital visit by physician [facility] Ultrasound Room [facility] Ultrasound Comment on above: Colon cancer screeni ng; Fatty liver Start: 08-02-2022 End: 08-02-2022 Subsequent hospital visit by physician Vineet Matos PT [facility] Physical Therapy Start: 07-29-2022 End: 07-30-[address] COREY [place] . Facility:[facility] Start: 07-23-2022 End: 07-23-2022 Subsequent hospital visit by physician Vineet Matos PT [facility] Physical Therapy Start: 07-19-2022 End: 07-19-2022 Subsequent hospital visit by physician Mulu Mccray PTA [facility] Laboratory Comment on above: Colon cancer screeni ng; Fatty liver Arrived Start: 07-16-2022 End: 07-16-2022 Subsequent hospital visit by physician Vineet Matos PT [facility] Physical Therapy Comment on above: Arrived Start: 07-13-2022 End: 07-13-2022 Subsequent hospital visit by physician Mulu Mccray PTA [facility] Physical Therapy Comment on above: Arrived Start: 07-12-2022 End: 07-12-2022 Subsequent hospital visit by physician Mulu Mccray PTA [facility] Physical Therapy Comment on above: Arrived Start: 07-08-2022 End: 07-08-2022 Subsequent hospital visit by physician Vineet Matos PT [facility] Physical Therapy Comment on above: Arrived Start: 07-07-2022 End: 07-07-2022 Subsequent hospital visit by physician Karrie Beltran CARTON INSPECTOR [facility] Physical Therapy Comment on above: Arrived Start: 07-05-2022 End: 07-05-2022 Subsequent hospital visit by physician Karrie Beltran [facility] Comment on above: Arrived Start: 07-02-2022 End: 07-02-2022 Subsequent hospital visit by physician Vineet Matos PT [facility] Physical Therapy Comment on above: Arrived Start: 06-30-2022 End: 06-30-2022 Subsequent hospital visit by physician Karrie Beltran CARTON INSPECTOR [facility] Physical Therapy Comment on above: Arrived Start: 06-28-2022 End: 06-28-2022 Subsequent hospital visit by physician Karrie Beltran PTA [facility] Physical Therapy Comment on above: Arrived Start: 06-24-2022 End: 06-24-2022 Subsequent hospital visit by physician Vineet Matos PT [facility] Physical Therapy Comment on above: Arrived Start: 06-18-2022 End: 06-18-2022 Subsequent hospital visit by physician Karrie Beltran CARTON INSPECTOR [facility] Physical Therapy Comment on above: Arrived Start: 06-16-2022 End: 06-16-2022 Subsequent hospital visit by physician Karrie Beltran CARTON INSPECTOR [facility] Physical Therapy Comment on above: Arrived Start: 06-14-2022 End: 06-14-2022 Subsequent hospital visit by physician Karrie Beltran CARTON INSPECTOR [facility] Physical Therapy Comment on above: Arrived Start: 06-11-2022 End: 06-11-2022 Subsequent hospital visit by physician Vineet Matos PT [facility] Physical Therapy Comment on above: Arrived Start: 06-07-2022 End: 06-07-2022 Subsequent hospital visit by physician Karrie Beltran PTA [facility] Start: 06-02-2022 End: 06-02-2022 Subsequent hospital visit by physician Karrie Beltran PTA [facility] Physical [facility] Start: 05-28-2022 End: 05-28-2022 Subsequent hospital visit by physician Vineet Matos PT [facility] Physical Therapy Comment on above: Arrived Start: 05-27-2022 End: 05-27-2022 Subsequent hospital visit by physician Vineet Matos PT [facility] Physical Therapy Comment on above: Arrived Start: 05-25-2022 End: 05-25-2022 Subsequent hospital visit by physician Nathan Garcia PT [facility] Physical Therapy Comment on above: Arrived Start: 05-18-2022 End: 05-18-2022 Subsequent hospital visit by physician Vineet Matos PT [facility] Physical Therapy Comment on above: Arrived Start: 04-29-2022 End: 04-30-[address] COREY [place] . Facility:[facility] Start: 04-13-2022 End: 04-13-[address] COREY [place] . Facility:[facility] Start: 04-09-2022 End: 04-09-2022 Subsequent hospital visit by physician [facility] Covid Screening Schedule [facility] Covid Screening Comment on above: Arrived Start: 04-01-2022 End: 04-02-2022 ambulatory KEILY CLEMENTS . Facility:[facility] Start: 03-31-2022 End: 04-02-2022 Subsequent hospital visit by physician [facility] Vascular Imaging Room [facility] Vascular Lab Comment on above: Intermittent claudic ation (HCC) Start: 03-02-2022 End: 03-02-2022 ambulatory NON STAFF Facility:[facility] Start: 11-26-2021 End: 11-26-2021 [facility] Covid Screening Comment on above: Arrived Start: 05-15-2021 End: 05-17-2021 Subsequent hospital visit by physician [facility] Mammography Room [facility] Mammography Comment on above: Other screening mamm ogram Start: 04-14-2021 ambulatory VIVIAN OSEGUERA [facility] Start: 03-11-2021 End: 03-11-2021 Subsequent hospital visit by physician Vivian Oseguera APRN - [place] Work Phone: [facility] Laboratory Comment on above: Abnormal LFTs Start: 03-04-2021 End: 03-04-2021 Subsequent hospital visit by physician [facility] Cardiology Stress Room [facility] Stress Lab Comment on above: Arrived Start: 03-03-2021 End: 03-03-2021 Subsequent hospital visit by physician [facility] Echo Room [facility] Echocardiography Comment on above: Essential hypertensi on; Chest discomfort; Hyperlipidemia, unspecified hyperlipidemia type; Tobacco abuse Arrived Start: 02-09-2021 End: 02-09-2021 Subsequent hospital visit by physician Vivian Oseguera APRN - [place] Work Phone: [facility] Laboratory Comment on above: Hepatomegaly Start: 01-28-2021 End: 01-28-2021 Subsequent hospital visit by physician Vivian Oseguera AUTOMOTIVE PROFESSIONAL - [employer] [facility] Comment on above: Renal stones; Renal colic Start: 01-27-2021 End: 01-29-2021 Subsequent hospital visit by physician Sara Martini Dr Room 2 [facility] Radiology Comment on above: Renal stones Start: 01-20-2021 End: 01-22-2021 Subsequent hospital visit by physician Sara Cat Scan Room [facility] CT Scan Comment on above: DDD (degenerative di sc disease), lumbar Start: 09-30-2020 End: 09-30-2020 Subsequent hospital visit by physician Torri Cov[facility] Scre[facility] Comment on above: Preoperative testing Start: 08-13-2020 End: 08-13-2020 Subsequent hospital visit by physician Vivian [facility] Start: 07-25-2020 End: 07-27-2020 Subsequent hospital visit by physician Sara Cat Scan Room [facility] CT Scan Comment on above: Traumatic injury of head, initial encounter; Scalp tenderness Start: 07-08-2020 End: 07-08-2020 Subsequent hospital visit by physician Torri Cov[facility] Scre[facility] Comment on above: Arrived Start: 01-25-2020 End: 01-27-2020 Subsequent hospital visit by physician Sara Martini Dr Room 4 [facility] Radiology Comment on above: Renal stones Start: 12-28-2019 End: 12-28-2019 Subsequent hospital visit by physician Vivian [facility] Start: 10-18-2019 End: 10-20-2019 Subsequent hospital visit by physician Vivian Oseguera APRN - WEB SI[employer]ER [facility] Comment on above: Right upper quadrant abdominal pain Start: 10-03-2019 End: 10-03-2019 Subsequent hospital visit by physician Vivian Oseguera APRN - WEB SI[employer]ER [facility] Start: 08-22-2019 End: 08-24-2019 Subsequent hospital visit by physician Sara Nuclear Room [facility] Nuclear Medicine Comment on above: Arrived Generalized abdomina l pain Start: 08-16-2019 End: 08-18-2019 Subsequent hospital visit by physician Sara Nuclear Room [facility] Nuclear Medicine Comment on above: Generalized abdomina l pain Start: 08-03-2019 End: 08-05-2019 Subsequent hospital visit by physician Sara Ultrasound Room [address] [facility] Ultrasound Comment on above: Thyromegaly Start: 07-30-2019 End: 08-01-2019 Subsequent hospital visit by physician Sara Cat Scan Room [facility] CT Scan Comment on above: Abdominal pain, [...] 09-14-2024 End: 09-14-2024 Glucose blood reagent strip Meenaase A Mike DPM Work Phone: Start: 09-07-2024 [...] 07-23-2024 Potassium serum plasma/whole blood Zulema Chapa AUTOMOTIVE PROFESSIONAL - [employer] Work Phone: Start: 07-18-2024 Basic metabolic pane [...] pane l calcium total Vivian W Might AUTOMOTIVE PROFESSIONAL - [employer] Work Phone: Start: 07-02-2024 Ct maxillofacial w/o contrast material Vivian W Might AUTOMOTIVE PROFESSIONAL - [employer] Work Phone: Start: 06-08-2024 Assay of thyroid stimulating hormone tsh Rolan Sim Work Phone: Start: 12-07-2023 Radiologic exam ches t 2 views Vivian W Might AUTOMOTIVE PROFESSIONAL - [employer] Work Phone: Start: 06-16-2023 Ct head/brain w/o [...] lum bar w/o contrast material Keily Clements AUTOMOTIVE PROFESSIONAL - [employer] Work Phone: Start: 09-30-2022 SARS Antigen (LFIA) Start: 09-29-2022 NM TILT TABLE TEST Albert t W Might AUTOMOTIVE PROFESSIONAL - [employer] Work Phone: Start: 09-21-2022 Urine albumin quantitative Vivian W Might AUTOMOTIVE PROFESSIONAL - [employer] Work Phone: Start: 09-21-2022 Lipid panel Vivian W Mi ght AUTOMOTIVE PROFESSIONAL - [employer] Work Phone: Start: 09-21-2022 End: 09-21-2022 Basic metabolic panel calcium total Vivian W Might AUTOMOTIVE PROFESSIONAL - [employer] Work Phone: Start: 08-06-2022 Assay of troponin [...] ogic study extremity 3 levls Vivian Combs [employer] Work Phone: Start: 05-15-2021 Screening mammograph y bi 2-view breast inc cad Vivian Oseguera AUTOMOTIVE PROFESSIONAL [employer] Work Phone: Start: 03-11-2021 Comprehensive metabo lic panel Claudia Willett AUTOMOTIVE PROFESSIONAL [employer] Work Phone: Start: 03-11-2021 Hepatitis b core ant ibody hbcab total Claudia Willett AUTOMOTIVE PROFESSIONAL [employer] Work Phone: Start: 03-11-2021 Iaad ia hepatitis b surface antigen Claudia Willett AUTOMOTIVE PROFESSIONAL [employer] Work Phone: Start: 02-09-2021 Hepatic function panel Vivian Combs [employer] Work Phone: Start: 01-28-2021 Urnls dip stick/tabl et reagent auto microscopy Meghan León AUTOMOTIVE PROFESSIONAL - [employer] Work Phone: Start: 01-27-2021 Radiologic exam abdo men 1 view Meghan León AUTOMOTIVE PROFESSIONAL - [employer] Work Phone: Start: 01-20-2021 Ct lumbar spine [...] real ti me w/image limited Flip Srinivasan [employer] Work Phone: Start: 10-18-2019 Basic metabolic pane l calcium total Flip Dodson [employer] Work Phone: Start: 10-03-2019 Ecg routine ecg [...] years Vaccine (2 of 2 - PPSV23) [employer] Start: 2038 Pneumococcal 0-64 years Vaccine (2 of 2) Pneumococcal 0-64 years Vaccine (2 of 2) [employer] Work Phone: Start: 12-08-2032 Screening for malignant neoplasm of colon [facility] Start: 01-25-2026 Hemoglobin A1c measurement A1C test (Diabetic or Prediabetic) [facility] [employer] Start: 01-17-2026 Depression Monitoring Depression Monitoring [employer] Start: 12-08-2025 Screening for malignant neoplasm of colon [facility] [employer] Start: 11-28-2025 Depression Monitoring Depression Monitoring [employer] Start: 11-28-2025 DTaP/Tdap/Td vaccine (1 - Tdap) DTaP/Tdap/Td vaccine (1 - Tdap) [facility] [employer] Comment on above: Postponed from 02/29/1992 (Patient Refus ed) Start: 11-28-2025 Pneumococcal 50+ years Vaccine (2 of 2 - PCV) Pneumococcal 50+ years Vaccine (2 of 2 - PCV) [facility] Comment on above: Postponed from 05/10/2019 (Patient Refus ed) Start: 10-11-2025 Hemoglobin A1c measurement A1C test (Diabetic or Prediabetic) [facility] Start: 09-15-2025 GFR test (Diabetes, CKD 3-4, OR last GFR 15-59) GFR test (Diabetes, CKD 3-4, OR last GFR 15-59) [facility] [employer] Start: 09-07-2025 GFR test (Diabetes, CKD 3-4, OR last GFR 15-59) GFR test (Diabetes, CKD 3-4, OR last GFR 15-59) [facility] Start: 07-25-2025 GFR test (Diabetes, CKD 3-4, OR last GFR 15-59) GFR test (Diabetes, CKD 3-4, OR last GFR 15-59) [facility] Start: 07-24-2025 Hemoglobin A1c measurement A1C test (Diabetic or Prediabetic) [facility] [employer] Start: 07-18-2025 GFR test (Diabetes, CKD 3-4, OR last GFR 15-59) GFR test (Diabetes, CKD 3-4, OR last GFR 15-59) [facility] Start: 07-13-2025 Diabetic foot examination Diabetic foot exam [facility] [employer] Start: 07-02-2025 GFR test (Diabetes, CKD 3-4, OR last GFR 15-59) GFR test (Diabetes, CKD 3-4, OR last GFR 15-59) [facility] Start: 06-11-2025 COVID-19 Vaccine ( season) COVID-19 Vaccine ( season) [facility] Comment on above: Postponed from 05/27/2024 (Unavailable) Start: 06-11-2025 COVID-19 Vaccine ( season) COVID-19 Vaccine ( season) [facility] Comment on above: Postponed from 05/27/2024 (Unavailable) Start: 06-11-2025 Hepatitis B vaccine (1 of 3 - 19+ 3-dose series) Hepatitis B vaccine (1 of 3 - 19+ 3-dose series) [facility] Comment on above: Postponed from 02/29/1992 (Patient Refus ed) Start: 06-11-2025 HIV screening HIV screen [facility] Comment on above: Postponed from 02/29/1988 (Patient Refus ed) Start: 06-11-2025 Shingles vaccine (2 of 2) Shingles vaccine (2 of 2) [facility] Comment on above: Postponed from 05/20/2023 (Patient Refus ed) Start: 06-08-2025 Hemoglobin A1c measurement A1C test (Diabetic or Prediabetic) [facility] Start: 05-23-2025 End: 05-23-2025 Patient encounter procedure 05/23/2025 2:00 PM EDT Office Visit [facility] Part [address] [place] [address] Nathan Ardon MD [address] [place] [phone] 1 year follow up [facility] Comment on above: 1 year follow up Start: 05-17-2025 Depression Monitoring Depression Monitoring [facility] Start: 05-17-2025 Influenza vaccination [facility] Comment on above: Postponed from 04/26/2024 (Patient Refus ed) Postponed from 04/26 (Patient Refused) Start: 03-28-2025 Depression Monitoring Depression Monitoring [facility] Start: 03-28-2025 Diabetic foot examination Diabetic foot exam [facility] Start: 03-23-2025 GFR test (Diabetes, CKD 3-4, OR last GFR 15-59) GFR test (Diabetes, CKD 3-4, OR last GFR 15-59) [facility] Start: 03-23-2025 Hemoglobin A1c measurement A1C test (Diabetic or Prediabetic) [facility] Start: 03-23-2025 Lipid panel Lipids [facility] Start: 03-23-2025 Urine screening for protein Diabetic Alb to Cr ratio (uACR) test [facility] Start: 02-14-2025 End: 02-14-2025 Patient encounter procedure 02/14/2025 3:00 PM EDT Office Visit [facility] [address] [place] [phone] Meera Mike, DPM [address] [address] 6 WEEKS [facility] Comment on above: 6 WEEKS Start: 01-29-2025 End: 01-29-2025 Patient encounter procedure 01/29/2025 10:45 AM EDT Appointment [facility] [address] [place] [phone] Vineet Block, PT needs to schedule more. pre cert note in [facility] Comment on above: needs to schedule more. pre cert note in Start: 01-24-2025 End: 01-24-2025 Patient encounter procedure 01/24/2025 12:45 PM EDT Appointment [facility] [address] [place] [phone] Alanna Chappell PTA [facility] Start: 01-22-2025 End: 01-22-2025 Patient encounter procedure 01/22/2025 11:30 AM EDT Appointment [facility] [address] [place] [phone] Hussein Rich PTA [facility] Start: 01-17-2025 End: 01-17-2025 Patient encounter procedure 01/17/2025 2:45 PM EDT Appointment [facility] [address] [place] [phone] Makayla Lozoya PTA [facility] Start: 01-14-2025 End: 01-14-2025 Patient encounter procedure 01/14/2025 12:15 PM EDT Appointment [facility] [address] [place] [phone] Makayla Lozoya PTA [facility] Start: 01-10-2025 End: 01-10-2025 Patient encounter procedure 01/10/2025 1:45 PM EDT Appointment [facility] [address] [place] [phone] Hussein Rich PTA [facility] Start: 01-08-2025 End: 01-08-2025 Patient encounter procedure 01/08/2025 2:30 PM EDT Appointment [facility] [address] [place] [phone] Hussein Rich PTA upoc- vineet matos patient, blocked him for 15 minutes at 2:30. [facility] Comment on above: upoc- vineet matos patient, blocked him f or 15 minutes at 2:30. Start: 01-03-2025 End: 01-03-2025 Patient encounter procedure 01/03/2025 3:30 PM EDT Office Visit [facility] [address] [facility] [address] [place] [address] Meera Mike, DPZarina [address] [facility] [address] [place] [address] 6 WEEKS [facility] Comment on above: 6 WEEKS Start: 01-02-2025 End: 01-02-2025 Patient encounter procedure [facility] Comment on above: SADIQRAINER BAKER PT Start: 12-31-2024 End: 12-31-2024 Patient encounter procedure 12/31/2024 12:45 PM EDT Appointment [facility] [address] [place] [phone] Alanna Chappell PTA [facility] Start: 12-26-2024 End: 12-26-2024 Patient encounter procedure 12/26/2024 1:30 PM EDT Appointment [facility] [address] [place] [address] Phu Mora [facility] Start: 12-24-2024 End: 12-24-2024 Patient encounter procedure 12/24/2024 12:[address] [facility] [address] [place] [phone] Alanna Chappell PTA [facility] Start: 12-19-2024 End: 12-19-2024 Patient encounter procedure [facility] Start: 12-17-2024 End: 12-17-2024 Patient encounter procedure 12/17/2024 12:45 PM EDT Appointment [facility] [address] [place] [phone] Alanna Chappell PTA [facility] Start: 12-12-2024 End: 12-12-2024 Patient encounter procedure 12/12/2024 1:45 PM EDT Appointment [facility] [address] [place] [phone] Phu Mora [facility] Start: 12-10-2024 End: 12-10-2024 Patient encounter procedure 12/10/2024 1:30 PM EDT Appointment [facility] [address] [place] [phone] Disha Escamilla PTA [facility] Start: 12-06-2024 Depression Monitoring Depression Monitoring [facility] [employer] Start: 12-06-2024 GFR test (Diabetes, CKD 3-4, OR last GFR 15-59) GFR test (Diabetes, CKD 3-4, OR last GFR 15-59) [facility] Start: 12-05-2024 End: 12-05-2024 Patient encounter procedure 12/05/2024 2:30 PM EDT Appointment [facility] [address] [place] [phone] Makayla Lozoya PTA [facility] Start: 12-03-2024 End: 12-03-2024 Patient encounter procedure 12/03/2024 12:30 PM EDT Appointment [facility] [address] [place] [phone] Makayla Lozoya PTA [facility] Start: 11-29-2024 End: 11-29-2024 Patient encounter procedure 11/29/2024 11:15 AM EST Appointment [facility] [address] [place] [phone] Alanna Chappell PTA [facility] Start: 11-28-2024 End: 11-28-2024 Patient encounter procedure 11/28/2024 11:00 AM EST Office Visit [facility] [address] [place] [phone] Vivian Oseguera, JOSSE - GEORGES [address] [place] [address] sinus issues [facility] Comment on above: sinus issues Start: 11-21-2024 Hemoglobin A1c measurement A1C test (Diabetic or Prediabetic) [facility] Start: 10-25-2024 End: 10-25-2024 Patient encounter procedure 10/25/2024 9:45 AM EST Office Visit [facility] [address] [facility] [address] [place] [phone] Meera Mike DPM [address] [facility] [address] [place] [address] 3RD POST OP [facility] Comment on above: 3RD POST OP Start: 10-11-2024 End: 10-11-2024 Patient encounter procedure 10/11/2024 2:00 PM EST Office Visit [facility] [address] [phone] Meera Mike DPM [address] [phone] 2ND POST OP [facility] Comment on above: 2ND POST OP Start: 10-01-2024 End: 10-01-2024 Patient encounter procedure 10/01/2024 2:00 PM EST Office Visit [facility] [address] [place] [phone] Vivian Oseguera, JOSSE - [place]ES [address] [place] [address] 6 month f/u [facility] Comment on above: 6 month f/u Start: 09-28-2024 DTaP/Tdap/Td vaccine (1 - Tdap) DTaP/Tdap/Td vaccine (1 - Tdap) [facility] Comment on above: Postponed from 02/29/1992 (Patient Refus ed) Start: 09-27-2024 End: 09-27-2024 Patient encounter procedure 09/27/2024 10:45 AM EST Office Visit [facility] [address] [phone] Meera Mike DPM [address] [place] [address] INITIAL POST OP [facility] Comment on above: INITIAL POST OP Start: 09-14-2024 End: 09-14-2024 Admission to same day surgery center 09/14/2024 8:00 AM EST - 09/14/2024 11:00 AM EST Surgery [facility] [address] [place] [address] Meera Mike DPM [address] [facility] [address] [place] [address] REMOVE EXTERNAL FIXATOR LEFT FOOT [facility] Comment on above: REMOVE EXTERNAL FIXATOR LEFT FOOT Start: 09-14-2024 End: 09-14-2024 Arthrodesis subtalar FOOT ARTHRODESIS Charcot ankle, left Diabetes (HCC) 09/14/2024 8:00 AM [facility] Start: 09-14-2024 End: 09-14-2024 Removal external fixation system under anes FOOT EXTERNAL FIXATOR REMOVAL Charcot ankle, left Diabetes (HCC) 09/14/2024 8:00 AM [facility] Start: 09-14-2024 Subsequent hospital visit by physician 09/14/2024 8:00 AM EST Hospital Encounter [facility] [address] [place] [address] Meera Mike DPM [address] [facility] [address] [place] [address] [facility] Start: 09-04-2024 End: 09-04-2024 Patient encounter procedure 09/04/2024 2:30 PM EST Office Visit [facility] [address] [facility] [address] [place] [phone] Meera Mike DPM [address] [place] [address] 2 WEEKS [facility] Comment on above: 2 WEEKS Start: 08-21-2024 End: 08-21-2024 Patient encounter procedure 08/21/2024 2:00 PM EST Office Visit [facility] [address] [place] [phone] Meera Mike, PRANAV [address] [place] [facility] [place] [address] 3RD POST OP [facility] Comment on above: 3RD POST OP Start: 08-07-2024 End: 08-07-2024 Patient encounter procedure [facility] Part of [facility] Comment on above: Oropharyngeal dysphagia, referral 2ND POST OP Start: 08-03-2024 Lipid panel Lipids [facility] Start: 08-03-2024 Urine screening for protein Diabetic Alb to Cr ratio (uACR) test [facility] Start: 07-26-2024 End: 07-26-2024 Patient encounter procedure 07/26/2024 8:00 AM EDT Office Visit [facility] [address] [place] [phone] Meera Mike, PRANAV [address] [place] [facility] [place] [address] INITIAL POST OP [facility] Comment on above: INITIAL POST OP Start: 07-23-2024 End: 07-23-2024 Application uniplane external fixation system ANKLE EXTERNAL FIXATOR APPLICATION Charcot ankle, left Closed dislocation of tarsal joint of left foot 07/23/2024 2:00 PM EDT [facility] Start: 07-23-2024 End: 07-23-2024 Prq skel fixj metar fx w/manj FOOT CLOSED REDUCTION PINNING Charcot ankle, left Closed dislocation of tarsal joint of left foot 07/23/2024 2:00 PM EDT [facility] Start: 07-01-2024 Glaucoma screening Diabetic retinal exam [facility] Comment on above: Postponed from 10/17/2020 (Not Indicated ) Start: 06-22-2024 Pneumococcal 0-64 years Vaccine (2 - PCV) Pneumococcal 0-64 years Vaccine (2 - PCV) [facility] Comment on above: Postponed from 05/10/2019 (Patient Refus ed) Start: 06-22-2024 Pneumococcal 0-64 years Vaccine (2 of 2 - PCV) Pneumococcal 0-64 years Vaccine (2 of 2 - PCV) [facility] Comment on above: Postponed from 05/10/2019 (Patient Refus ed) Start: 06-16-2024 GFR test (Diabetes, CKD 3-4, OR last GFR 15-59) GFR test (Diabetes, CKD 3-4, OR last GFR 15-59) [facility] Start: 06-14-2024 GFR test (Diabetes, CKD 3-4, OR last GFR 15-59) GFR test (Diabetes, CKD 3-4, OR last GFR 15-59) [facility] Start: 05-27-2024 COVID-19 Vaccine (#1) COVID-19 Vaccine (#1) [employer] Comment on above: Postponed from 1973 (Not Indicated ) Start: 05-27-2024 COVID-19 Vaccine ( season) COVID-19 Vaccine ( season) [facility] Comment on above: Postponed from 05/27/2023 (Not Indicated ) Start: 05-27-2024 Diabetic foot examination Diabetic foot exam [email or web address] Comment on above: Postponed from 03/18/2022 (Not Indicated ) Start: 05-27-2024 Hepatitis B vaccine (1 of 3 - 19+ 3-dose series) Hepatitis B vaccine (1 of 3 - 19+ 3-dose series) [facility] Comment on above: Postponed from 02/29/1992 (Not Indicated ) Start: 05-27-2024 Hepatitis B vaccine (1 of 3 - 3-dose series) Hepatitis B vaccine (1 of 3 - 3-dose series) [facility] Comment on above: Postponed from 1973 (Not Indicated ) Start: 05-27-2024 HIV screening HIV screen [facility] Comment on above: Postponed from 02/29/1988 (Patient Refus ed) Start: 05-27-2024 Shingles vaccine (2 of 2) Shingles vaccine (2 of 2) [facility] Comment on above: Postponed from 05/20/2023 (Unavailable) Start: 05-16-2024 End: 05-16-2024 Patient encounter procedure 05/16/2024 1:40 PM EDT Office Visit [facility] [address] [place] [address] Nathan Ardon MD [address] [place] [address], [place] [phone] 1 year [facility] Comment on above: 1 year Start: 05-03-2024 End: 05-03-2024 Patient encounter procedure 05/03/2024 1:00 PM EDT Appointment [facility] [address] [place] [address] Phu Mora [facility] Start: 05-01-2024 End: 05-01-2024 Patient encounter procedure 05/01/2024 2:45 PM EDT Appointment [facility] [address] [place] [phone] Phu Mora [facility] Start: 04-26-2024 Influenza vaccination [facility] Start: 04-25-2024 End: 04-25-2024 Patient encounter procedure 04/25/2024 1:45 PM EDT Appointment [facility] [address] [place] [address] Sonia Baum, PT [facility] Comment on above: [facility] Start: 04-23-2024 End: 04-23-2024 Patient encounter procedure 04/23/2024 1:15 PM EDT Appointment [facility] [address] [place] [phone] Phu Mora [facility] Start: 04-18-2024 End: 04-18-2024 Patient encounter procedure 04/18/2024 3:00 PM EDT Appointment [facility] [address] [place] [phone] Phu Mora [facility] Start: 04-16-2024 End: 04-16-2024 Patient encounter procedure 04/16/2024 1:00 PM EDT Appointment [facility] [address] [place] [phone] Phu Mora [facility] Start: 03-28-2024 End: 03-28-2024 Patient encounter procedure 03/28/2024 2:00 PM EDT Office Visit [facility] [address] [place] [phone] Vivian Oseguera, AUTOMOTIVE PROFESSIONAL - [employer] [address] [place] [address] 6 MONTH [facility] Comment on above: 6 MONTH Start: 03-25-2024 Influenza vaccination Flu vaccine (#1) [facility] Comment on above: Postponed from 04/26/2023 (Unavailable) Start: 03-24-2024 Depression Monitoring Depression Monitoring [facility] Start: 03-24-2024 Hemoglobin A1c measurement A1C test (Diabetic or Prediabetic) [facility] Start: 03-08-2024 End: 03-08-2024 Patient encounter procedure 03/08/2024 1:45 PM EDT Appointment [facility] [address] [place] [phone] Phu Mora NEW REFERRAL FOR SHOULDER PAIN. SENT REQUEST TO ORIGINAL REFERRING DOCTOR TO SIGN OFF ON ADDING IT TO POC [facility] Comment on above: NEW REFERRAL FOR SHOULDER PAIN. SENT REQ UEST TO ORIGINAL REFERRING DOCTOR TO SIGN OFF ON ADDING IT TO POC Start: 03-06-2024 End: 03-06-2024 Patient encounter procedure 03/06/2024 1:15 PM EDT Office Visit [facility] [address] [place] [address] Roxie Martini, DO [address] [place] [address] follow up [facility] Comment on above: follow up Start: 2024 End: 2024 Patient encounter procedure 2024 1:[address] [facility] [address] [place] [phone] Génesis Hickman PTA [facility] Start: 02-23-2024 End: 02-23-2024 Patient encounter procedure 02/23/2024 3:[address] [facility] [address] [place] [phone] Lary Rea PTA [facility] Start: 02-14-2024 End: 02-14-2024 Patient encounter procedure 02/14/2024 3:00 PM EDT Appointment [facility] [address] [place] [phone] Sahara Strauss PT [facility] Start: 02-08-2024 End: 02-08-2024 Patient encounter procedure 02/08/2024 1:15 PM EDT Appointment [facility] [address] [place] [phone] Phu Mora [facility] Start: 02-06-2024 End: 02-06-2024 Patient encounter procedure 02/06/2024 12:30 PM EDT Appointment [facility] [address] [place] [phone] [facility] Start: 02-01-2024 End: 02-01-2024 Patient encounter procedure 02/01/2024 2:[address] [facility] [address] [place] [address] [phone] [facility] Start: 01-30-2024 End: 01-30-2024 Patient encounter procedure 01/30/2024 2:[address] [facility] [address] [place] [phone] [facility] Start: 01-25-2024 End: 01-25-2024 Patient encounter procedure 01/25/2024 2:[address] [facility] [address] [place] [phone] Phu Mora [facility] Start: 01-23-2024 End: 01-23-2024 Patient encounter procedure 01/23/2024 2:30 PM EDT Appointment [facility] [address] [place] [address] [phone] AndiDisha PTA [facility] Start: 12-27-2023 End: 12-27-2023 Patient encounter procedure 12/27/2023 1:30 PM EDT Office Visit [facility] [address] [phone] Chen Rocha PA-C [address] [place] [phone] leg edema, had labs done [facility] Comment on above: leg edema, had labs done Start: 09-28-2023 End: 09-28-2023 Patient encounter procedure 09/28/2023 3:40 PM EST Office Visit [facility] [address] [place] [address] Vivian Oseguera, AUTOMOTIVE PROFESSIONAL - [employer] [address] [place] [address] 6 month [facility] Comment on above: 6 month Start: 09-23-2023 Depression Monitoring Depression Monitoring [facility] Start: 09-23-2023 DTaP/Tdap/Td vaccine (1 - Tdap) DTaP/Tdap/Td vaccine (1 - Tdap) [facility] Comment on above: Postponed from 02/29/1992 (Patient Refus ed) Start: 09-21-2023 GFR test (Diabetes, CKD 3-4, OR last GFR 15-59) GFR test (Diabetes, CKD 3-4, OR last GFR 15-59) [facility] Start: 09-21-2023 Hemoglobin A1c measurement A1C test (Diabetic or Prediabetic) [facility] Start: 09-21-2023 Lipid panel Lipids [facility] Start: 09-21-2023 Urine screening for protein Diabetic Alb to Cr ratio (uACR) test [facility] Start: 06-22-2023 End: 06-22-2023 Patient encounter procedure 06/22/2023 8:40 AM EDT Office Visit [facility] [address] [place] [address] Vivian Oseguera, AUTOMOTIVE PROFESSIONAL - [employer] [address] [facility] [place] [address] Hospital f/u-Pneumonia [facility] Comment on above: Hospital f/u-Pneumonia Start: 06-19-2023 Diabetic retinal exam Diabetic retinal exam [facility] Comment on above: Postponed from 10/17/2020 (Not Indicated ) Start: 06-19-2023 Glaucoma screening Diabetic retinal exam [facility] Comment on above: Postponed from 10/17/2020 (Not Indicated ) Start: 06-09-2023 Depression Monitoring Depression Monitoring [facility] Start: 06-09-2023 Influenza vaccination [facility] Comment on above: Postponed from 05/27/2022 (Patient Refus ed) Postponed from 04/26 (Patient Refused) Postponed from 04/26 (Patient Refused) Start: 05-20-2023 Shingles vaccine (2 of 2) Shingles vaccine (2 of 2) [facility] Start: 05-16-2023 End: 05-16-2023 Patient encounter procedure 05/16/2023 Office Visit Cardiology Nathan Ardon MD [address] [place] [address] [facility] Start: 05-15-2023 Screening for malignant neoplasm of breast Breast cancer screen [facility] Start: 03-30-2023 End: 03-30-2023 Patient encounter procedure 03/30/2023 Office Visit Cardiology Nathan Ardon MD [address] [place] [phone] [facility] Part of [facility] Start: 03-24-2023 End: 03-24-2023 Patient encounter procedure 03/24/2023 Office Visit Primary Care Vivian Oseguera, AUTOMOTIVE PROFESSIONAL - [employer] [address] [facility] [place] [address] [facility] [facility] Start: 03-24-2023 COVID-19 Vaccine (#1) COVID-19 Vaccine (#1) [facility] [employer] Comment on above: Postponed from 1973 (Not Indicated ) Start: 03-24-2023 COVID-19 Vaccine (1) COVID-19 Vaccine (1) [facility] [employer] Comment on above: Postponed from 1978 (Not Indicated ) Start: 03-24-2023 Depression Monitoring Depression Monitoring [facility] [employer] Start: 03-24-2023 Diabetic foot examination Diabetic foot exam [facility] [email or web address] Comment on above: Postponed from 03/18/2022 (Patient Refus ed) Start: 03-24-2023 Hemoglobin A1c measurement A1C test (Diabetic or Prediabetic) [facility] [employer] Start: 03-24-2023 Hepatitis B vaccine (1 of 3 - Risk 3-dose series) Hepatitis B vaccine (1 of 3 - Risk 3-dose series) [facility] [employer] Comment on above: Postponed from 02/29/1992 (Patient Refus ed) Start: 03-24-2023 HIV screening HIV screen [facility] [employer] Comment on above: Postponed from 02/29/1988 (Patient Refus ed) Start: 03-24-2023 Pneumococcal 0-64 years Vaccine (2 - PCV) Pneumococcal 0-64 years Vaccine (2 - PCV) [facility] [employer] Comment on above: Postponed from 05/10/2019 (Not Indicated ) Start: 2023 Screening for malignant neoplasm of lung Lung Cancer Screening &/or Counseling [facility] [employer] Start: 01-19-2023 End: 01-19-2023 Patient encounter procedure 01/19/2023 Appointment Sleep Center [facility] Start: 12-08-2022 End: 12-08-2022 Admission to same day surgery center [facility] Comment on above: COLORECTAL CANCER SCREENING, NOT HIGH RI SK Start: 12-08-2022 End: 12-08-2022 Colon ca scrn not hi rsk ind [facility] Start: 12-08-2022 Subsequent hospital visit by physician [facility] Start: 11-23-2022 End: 11-23-2022 Patient encounter procedure 11/23/2022 Appointment Sleep Center [facility] Start: 10-23-2022 Creatinine measurement Creatinine monitoring [facility] Start: 10-23-2022 Lipid panel [facility] Start: 10-23-2022 Potassium monitoring Potassium monitoring [facility] Start: 10-23-2022 Urine screening for protein Diabetic microalbuminuria test [facility] Start: 10-08-2022 End: 10-08-2022 Patient encounter procedure 10/08/2022 Appointment EKG [facility] EKG Start: 10-01-2022 Subsequent hospital visit by physician 10/01/2022 Hospital Encounter Stress Lab Canceled (Other) [facility] Stress Lab Comment on above: Canceled (Other) Start: 09-23-2022 End: 09-23-2022 Patient encounter procedure 09/23/2022 Office Visit Primary Care Vivian Oseguera, AUTOMOTIVE PROFESSIONAL - [employer] [address] [place] [address] [facility] Start: 09-17-2022 DTaP/Tdap/Td vaccine (1 - Tdap) DTaP/Tdap/Td vaccine (1 - Tdap) [facility] Comment on above: Postponed from 02/29/1992 (Patient Refus ed) Start: 09-17-2022 Influenza vaccination Flu vaccine (#1) [facility] Comment on above: Postponed from 05/27/2021 (Patient Refus ed) Start: 09-10-2022 End: 09-10-2022 Patient encounter procedure 09/10/2022 Appointment Lab [facility] Covid Screening Start: 08-06-2022 End: 08-06-2022 [...] Start: 07-19-2022 End: 07-19-2022 Patient encounter procedure [facility] Start: 07-16-2022 End: 07-16-2022 Patient encounter procedure [...] Patient encounter procedure 06/24/2022 Appointment Physical Therapy Vinete Matos, PT [facility] Start: 06-21-2022 [...] procedure 06/04/2022 Appointment Physical Therapy Karrie Beltran C[employer]ON INSPECT[employer] [facility] Start: 06-02-2022 End: 06-02-2022 Patient encounter procedure 06/02/2022 Appointment Physical Therapy Karrie Beltran PTA [facility] Start: 06-02-2022 Subsequent hospital visit by physician 06/02/2022 Hospital Encounter Physical Therapy Karrie Beltran PTA [facility] Start: 05-28-2022 End: 05-28-2022 Patient encounter procedure 05/28/2022 Appointment Physical Therapy [facility]et Matos, [facility] Start: 05-27-2022 End: 05-27-2022 Patient encounter procedure 05/27/2022 Appointment Physical Therapy Vineet Matos, [facility] Start: 05-27-2022 Influenza vaccination Flu vaccine (#1) [facility] Start: 05-27-2022 End: 05-27-2022 Nursing evaluation of patient and report 05/27/2022 Nurse Only General Surgery Binta Peral I, DO [address] [place] [address] [facility] Start: 05-25-2022 End: 05-25-2022 Patient encounter procedure 05/25/2022 Appointment Physical Therapy Nathan Garcia, PT [facility] Physical Therapy Start: 05-19-2022 End: 05-19-2022 Patient encounter procedure 05/19/2022 Procedure visit General Surgery Binta Pearl I, [address] [place] [address] [facility] Start: 05-12-2022 End: 05-12-2022 Patient encounter procedure 05/12/2022 Office Visit General Surgery Binta Pearl I, [address] [place] [address] [facility] Start: 03-28-2022 Diabetic retinal exam Diabetic retinal exam [facility] Comment on above: Postponed from 10/17/2020 (Not Indicated ) Start: 03-18-2022 Diabetic foot examination Diabetic foot exam [facility] Start: 03-18-2022 Hepatitis B vaccine (1 of 3 - Risk 3-dose series) Hepatitis B vaccine (1 of 3 - Risk 3-dose series) [facility] Comment on above: Postponed from 02/29/1992 (Not Indicated ) Start: 03-18-2022 End: 03-18-2022 Patient encounter procedure 03/18/2022 Office Visit Primary Care Vivian Oseguera AUTOMOTIVE PROFESSIONAL - [employer] [address] [place] [address] [facility] Start: 03-18-2022 Screening for malignant neoplasm of cervix Cervical cancer screen [facility] [employer] Phone: Comment on above: Postponed from 06/02/2020 (Not Indicated ) Start: 03-11-2022 Creatinine measurement Creatinine monitoring [facility] [employer] Phone: Start: 03-11-2022 Potassium monitoring Potassium monitoring [facility] [employer] Phone: Start: 02-09-2022 COVID-19 Vaccine (1) COVID-19 Vaccine (1) [facility] Comment on above: Postponed from 1985 (Patient Refus ed) Postponed from 02/28 (Patient Refused) Start: 02-09-2022 Hepatitis C screening Hepatitis C screen [facility] [employer] Phone: Comment on above: Postponed from 1973 (Patient Refus ed) Start: 02-04-2022 End: 02-04-2022 Patient encounter procedure [facility] Start: 01-21-2022 Hemoglobin A1c measurement A1C test (Diabetic or Prediabetic) [facility] Start: 10-15-2021 End: 10-15-2021 ambulatory 10/15/2021 Virtual Visit Gastroenterology Claudia Willett, AUTOMOTIVE PROFESSIONAL - WE[employer] [address] [place] [address] [phone] [facility] Start: 09-17-2021 End: 09-17-2021 Patient encounter procedure 09/17/2021 Office Visit Primary Care Vivian Oseguera AUTOMOTIVE PROFESSIONAL - [employer] [address] [place] [address] [phone] [facility] Start: 09-16-2021 DTaP/Tdap/Td vaccine (1 - Tdap) DTaP/Tdap/Td vaccine (1 - Tdap) [facility] [place] [place] Comment on above: Postponed from 02/29/1992 (Patient Refus ed) Start: 09-16-2021 HIV screening HIV screen [place] Comment on above: Postponed from 02/29/1988 (Patient Refus ed) Start: 09-03-2021 End: 09-03-2021 Patient encounter procedure 09/03/2021 Office Visit Cardiology Nathan Ardon MD [address] [place] [place] [id number] [facility] Start: 08-13-2021 HbA1c (Bld) [Mass fraction] A1C test (Diabetic or Prediabetic) [place] Start: 08-13-2021 Hemoglobin A1c measurement A1C test (Diabetic or Prediabetic) [facility] [employer] [facility] Phone: Start: 08-13-2021 Lipid panel Lipid screen [place] Start: 05-27-2021 Influenza vaccination Flu vaccine (#1) [facility] [employer] Phone: Start: 03-18-2021 End: 03-18-2021 Office Visit [facility] Kevin Start: 03-12-2021 Hepatitis B vaccine (1 of 3 - Risk 3-dose series) Hepatitis B vaccine (1 of 3 - Risk 3-dose series) [place] Comment on above: Postponed from 02/29/1992 (Not Indicated ) Start: 03-09-2021 End: 03-09-2021 Patient encounter procedure 03/09/2021 Office Visit Gastroenterology Leah Martins MD [address] [place] [address] [phone] [facility] Start: 03-04-2021 End: 03-04-2021 Patient encounter procedure 03/04/2021 Appointment Stress Lab [facility] Start: 02-09-2021 End: 02-09-2021 Patient encounter procedure 02/09/2021 Office Visit Primary Care Vivian Oseguera, AUTOMOTIVE PROFESSIONAL - WE[employer] [address] [facility] [place] [address] [phone] [facility] Start: 01-28-2021 End: 01-28-2021 Office Visit 01/28/2021 Office Visit Urology Evan Everett MD [address] [place] [address], [address] [place] [address] [phone] [facility] Start: 11-21-2020 Diabetic microalbuminuria test Diabetic microalbuminuria test [employer] Phone: Comment on above: Postponed from 09/25/2019 (Not Indicated ) Start: 10-18-2020 Creatinine measurement Creatinine monitoring [facility] Start: 10-18-2020 Creatinine monitoring Creatinine monitoring [employer] Phone: Start: 10-18-2020 Potassium monitoring Potassium monitoring [employer] Phone: Start: 10-17-2020 Diabetic retinal exam Diabetic retinal exam [facility] [employer] Start: 10-17-2020 Glaucoma screening Diabetic retinal exam [facility] [employer] Start: 09-11-2020 End: 09-11-2020 Office Visit 09/11/2020 Office Visit Primary Care Vivian Oseguera W, AUTOMOTIVE PROFESSIONAL - [employer] [address] [place] [address] [facility] Start: 09-10-2020 DTaP/Tdap/Td vaccine (1 - Tdap) DTaP/Tdap/Td vaccine (1 - Tdap) [employer] Phone: Comment on above: Postponed from 02/29/1992 (Patient Refus ed) Postponed from 02/28 (Patient Refused) Start: 09-10-2020 HIV screen HIV screen [employer] Phone: Comment on above: Postponed from 02/29/1988 (Patient Refus ed) Start: 09-10-2020 HIV screening HIV screen [employer] Comment on above: Postponed from 02/29/1988 (Patient Refus ed) Start: 07-20-2020 Creatinine monitoring Creatinine monitoring [employer] Start: 07-20-2020 Potassium monitoring Potassium monitoring [place] Start: 06-11-2020 [object Object] Diabetic foot exam [place] Start: 06-11-2020 Diabetic foot examination Diabetic foot exam [place] Start: 06-04-2020 Creatinine monitoring Creatinine monitoring [place], [place] Start: 06-04-2020 Lipid panel Lipid [place] Start: 06-04-2020 Lipid screen Lipid [place] Start: 06-04-2020 Potassium monitoring Potassium monitoring [place] Start: 06-02-2020 Cervical cancer screen Cervical cancer screen [place] Start: 06-02-2020 Screening for malignant neoplasm of cervix [facility] Start: 05-27-2020 Influenza vaccination Flu vaccine (#1) [place] Start: 03-28-2020 HbA1c (Bld) [Mass fraction] A1C test (Diabetic or Prediabetic) [place] Start: 03-25-2020 Creatinine monitoring Creatinine monitoring [place] Start: 03-25-2020 Potassium monitoring Potassium monitoring [place] Start: 03-12-2020 End: 03-12-2020 [facility] Start: 02-29-2020 Diabetic retinal exam Diabetic retinal exam [place] Comment on above: Postponed from 01/02/2019 (Patient Refus ed) Start: 02-29-2020 Hepatitis B Vaccine (1 of 3 - Risk 3-dose series) Hepatitis B Vaccine (1 of 3 - Risk 3-dose series) [place] Comment on above: Postponed from 02/29/1992 (Patient Refus ed) Start: 01-28-2020 End: 01-28-2020 Office Visit [facility] Start: 10-20-2019 A1C test (Diabetic or Prediabetic) A1C test (Diabetic or Prediabetic) [place] Start: 10-15-2019 End: 10-15-2019 Office Visit 10/15/2019 Office Visit Cardiology Nathan Ardon MD [address] [place] [address] [place] [address] [facility] Start: 09-25-2019 Diabetic microalbuminuria test Diabetic microalbuminuria test [place] Start: 09-10-2019 End: 09-10-2019 Office Visit 09/10/2019 Office Visit Primary Care Vivian Oseguera, AUTOMOTIVE PROFESSIONAL - [employer] [address] [place] [address] [phone] [facility] Start: 09-04-2019 End: 09-04-2019 Office Visit 09/04/2019 Office Visit Otolaryngology Hever Olivera PA [address] [place] [address] [phone] [facility] Start: 09-03-2019 A1C test (Diabetic or Prediabetic) A1C test (Diabetic or Prediabetic) [place] Start: 08-24-2019 DTaP/Tdap/Td vaccine (1 - Tdap) DTaP/Tdap/Td vaccine (1 - Tdap) [place] Comment on above: Postponed from 02/29/1992 (Patient Refus ed) Postponed from 02/28 (Patient Refused) Start: 08-24-2019 HIV screen HIV screen [place], [place] Comment on above: Postponed from 02/29/1988 (Patient Refus ed) Start: 08-22-2019 End: 08-22-2019 Appointment 08/22/2019 Appointment Radiology [facility] Nuclear Medicine Start: 08-21-2019 Lipid screen Lipid screen [place] Start: 08-16-2019 End: 08-16-2019 Appointment 08/16/2019 Appointment Radiology [facility] Start: 08-03-2019 End: 08-03-2019 Appointment 08/03/2019 Appointment Radiology [facility] Ultrasound Start: 07-26-2019 End: 07-26-2019 Office Visit 07/26/2019 Office Visit Otolaryngology Hever Olivera PA [address] [place] [address] [phone] [facility] Start: 06-11-2019 End: 06-11-2019 Office Visit 06/11/2019 Office Visit Primary Care CaneloVivian, AUTOMOTIVE PROFESSIONAL - [employer] [address] [id number] [phone] [facility] Start: 05-31-2019 A1C test (Diabetic or Prediabetic) A1C test (Diabetic or Prediabetic) [place] Start: 05-27-2019 Influenza vaccination Flu vaccine (#1) [place] Start: 05-10-2019 [object Object] Diabetic foot exam [place] Start: 05-10-2019 Pneumococcal 0-64 years Vaccine (2 - PCV) Pneumococcal 0-64 years Vaccine (2 - PCV) [facility] Start: 05-10-2019 Pneumococcal 0-64 years Vaccine (2 of 2 - PCV) Pneumococcal 0-64 years Vaccine (2 of 2 - PCV) [facility] Start: 05-10-2019 Pneumococcal 50+ years Vaccine (2 of 2 - PCV) Pneumococcal 50+ years Vaccine (2 of 2 - PCV) [facility] Start: 2018 Screening for malignant neoplasm of colon [facility] Start: 2003 Screening for malignant neoplasm of cervix HPV (without or with Pap) [facility] Start: 02-29-1992 DTaP/Tdap/Td vaccine (1 - Tdap) DTaP/Tdap/Td vaccine (1 - Tdap) [facility] Start: 02-29-1992 Hepatitis B vaccine (1 of 3 - 19+ 3-dose series) Hepatitis B vaccine (1 of 3 - 19+ 3-dose series) [facility] Start: 1991 Urine screening for protein Diabetic Alb to Cr ratio (uACR) test [facility] Start: 1989 COVID-19 Vaccine (1) COVID-19 Vaccine (1) [facility] Work Phone: Start: 02-29-1988 HIV screening HIV screen [facility] Start: 1985 Depression Monitoring Depression Monitoring [facility] Start: 1973 Hepatitis C screening Hepatitis C screen [place], [place] End: 12-28-2019 AMINO ACID, QUANT AMINO ACID, QUANT Lab Routine Once for 1 Occurrences starting 12/28/2019 until 12/28/2019 [place] Comment on above: Once for 1 Occurrences starting 12/28/19 until 12/28/2019 AMINO ACID, QUANT AMINO ACID, QU ANT Lab Routine 12/28/2019 2:54 PM EDT [facility] [place] End: 03-11-2021 Anti-smooth muscle antibody Anti-smooth muscle antibody Lab Routine Abnormal LFTs 1 Occurrences starting 03/11/2021 until 03/11/2021 [employer] Phone: Comment on above: 1 Occurrences starting 03/11/2021 until 03/11/2021 End: 06-15-2023 Basic Metabolic Panel w/ Reflex to MG Basic Metabolic Panel w/ Reflex to MG Lab Routine Daily for 5 Days starting 06/11/2023 until 06/15/2023, 4 completed [facility] Comment on above: Daily for 5 Days starting 06/11/2023 unt il 06/15/2023, 4 completed Blood Culture 1 Blood Culture 1 Microbiology STAT 06/10/2023 11:30 PM EDT [facility] End: 07-27-2024 C-reactive protein C-Reactive Protein Lab Routine Q48H for 3 Days starting 07/25/2024 until 07/27/2024, 1 completed [facility] Comment on above: Q48H for 3 Days starting 07/25/2024 unti l 07/27/2024, 1 completed End: 03-03-2021 Cardiac stress test EKG study Type Echo stress test Echocardiography Routine Essential hypertension Chest discomfort Hyperlipidemia, unspecified hyperlipidemia type Tobacco abuse 1 Occurrences starting 03/03/2021 until 03/03/2021 [employer] Work Phone: Comment on above: 1 Occurrences starting 03/03/2021 until 03/03/2021 End: 12-28-2019 Carnitine Carnitine Lab Routine Once for 1 Occurrences starting 12/28/2019 until 12/28/2019 [place] Comment on above: Once for 1 Occurrences starting 12/28/19 until 12/28/2019 Carnitine Carnitine Lab Ro utine 12/28/2019 2:54 PM EDT [facility] [place] End: 06-15-2023 CBC W Auto Differential panel - Blood CBC auto differential Lab Routine Daily for 5 Days starting 06/11/2023 until 06/15/2023, 4 completed [facility] [employer] Comment on above: Daily for 5 Days starting 06/11/2023 unt il 06/15/2023, 4 completed End: 10-08-2022 Continuous cardiac monitoring, >2 up to 14 days Continuous cardiac monitoring, >2 up to 14 days Cardiac Services Routine Syncope and collapse Preop cardiovascular exam Dizziness Primary hypertension Mixed hyperlipidemia Tobacco abuse counseling 1 Occurrences starting 10/08/2022 until 10/08/2022 [facility] [employer] Phone: Comment on above: 1 Occurrences starting 10/08/2022 until 10/08/2022 Continuous pulse oximetry Pulse oximetry, continuous Respiratory Care Routine Every 4hr until discontinued starting 06/11/2023 [facility] [employer] Comment on above: Every 4hr until discontinued starting End: 09-30-2020 COVID-19 COVID-19 Lab Routine Preoperative testing 1 Occurrences starting 09/30/2020 until 09/30/2020 [facility] [place] Comment on above: 1 Occurrences starting 09/30/2020 until 09/30/2020 COVID-19 COVID-19 Lab [facility] [place] Preoperative testing 09/30/2020 1:20 PM [facility] [place] End: 11-26-2021 [employer] Work Phone: Comment on above: Once for 1 Occurrences starting 11/27/19 until 11/26/2021 End: 04-09-2022 COVID-19 [facility] Work Phone: Comment on above: Once for 1 Occurrences starting 04/09/20 until 04/09/2022 End: 09-03-2022 COVID-19 [facility] Work Phone: Comment on above: Once for 1 Occurrences starting 09/03/20 until 09/03/2022 End: 09-10-2022 COVID-19 [employer] Phone: Comment on above: Once for 1 Occurrences starting 09/10/20 until 09/10/2022 End: 07-08-2020 Covid-19 Ambulatory Covid-19 Ambulatory Lab Routine Once for 1 Occurrences starting 07/08/2020 until 07/08/2020 [facility] [place] Comment on above: Once for 1 Occurrences starting 07/08/20 until 07/08/2020 Covid-19 Ambulatory Covid-19 Amb ulatory Lab Routine 07/08/2020 1:06 PM EDT [facility] [place] End: 07-26-2024 CT Ankle - left WO contrast [facility] Comment on above: Once for 1 Occurrences starting 07/26/20 until 07/26/2024 End: 07-26-2024 CT Foot - left WO contrast [facility] Comment on above: Once for 1 Occurrences starting 07/26/20 until 07/26/2024 End: 08-31-2024 CT Foot - left WO contrast [facility] Comment on above: 1 Occurrences starting 08/31/2024 until 08/31/2024 End: 07-02-2024 CT Sinuses W contrast IV CT SINUS W CONTRAST Imaging Routine Recurrent pansinusitis 1 Occurrences starting 07/02/2024 until 07/02/2024 [facility] Comment on above: 1 Occurrences starting 07/02/2024 until 07/02/2024 Culture, Blood 2 Culture, Blood 2 Microbiology STAT 06/10/2023 11:40 PM EDT [facility] End: 01-28-2021 Culture, Urine Culture, Urine Microbiology Routine Renal stones Renal colic 1 Occurrences starting 01/28/2021 until 01/28/2021 [employer] Work Phone: Comment on above: 1 Occurrences starting 01/28/2021 until 01/28/2021 Culture, Urine Culture, Urine Microbiology Routine Renal stones Renal colic 01/28/2021 11:00 AM EDT [employer] Work Phone: EKG 12 Lead EKG 12 Lead ECG Routine 08/06/2022 2:34 PM EST [facility] Work Phone: EKG 12 Lead EKG 12 Lead ECG STAT 08/06/2022 5:11 PM EST [facility] Work Phone: End: 12-28-2019 Factor 8 Assay Factor 8 Assay Lab Routine Once for 1 Occurrences starting 12/28/2019 until 12/28/2019 [facility], [facility] Comment on above: Once for 1 Occurrences starting 12/28/19 20 until 12/28/2019 Factor 8 Assay Factor 8 Assay L ab Routine 12/28/2019 2:54 PM EDT [facility], [facility] End: 12-28-2019 Fibrinogen Fibrinogen Lab Routine Once for 1 Occurrences starting 12/28/2019 until 12/28/2019 [facility] Comment on above: Once for 1 Occurrences starting 12/28/19 20 until 12/28/2019 F[facility]inogen Fibrinogen Lab R outine 12/28/2019 2:54 PM EDT [facility] End: 12-08-2022 Glucose [Mass/volume] in Serum or Plasma POCT Glucose Point of Care Testing STAT One Time for 1 Occurrences starting 12/08/2022 until 12/08/2022 [facility] Comment on above: One Time for 1 Occurrences starting 11/24 until 12/08/2022 Glucose [Mass/volume ] in Serum or Plasma POCT Glucose Point of Care Testing STAT As Needed until discontinued starting 06/11/2023 [facility] Comment on above: As Needed until discontinued starting Glucose [Mass/volume ] in Serum or Plasma [facility] Comment on above: As Needed until discontinued starting 4X Daily (AC & HS) u ntil discontinued starting 06/11/2023 End: 07-23-2024 Glucose [Mass/volume] in Serum or Plasma [facility] Work Phone: Comment on above: One Time for 1 Occurrences starting 06/27 until 07/23/2024 4X Daily (AC & HS) u ntil discontinued starting 07/24/2024 As Needed until disc ontinued starting 07/23/2024 Glucose [Mass/volume ] in Serum or Plasma POCT Glucose Point of Care Testing STAT As Needed until discontinued starting 09/14/2024 [facility] Work Phone: Comment on above: As Needed until discontinued starting End: 08-13-2020 HbA1c (Bld) [Mass fraction] Hemoglobin A1C Lab Routine Once for 1 Occurrences starting 08/13/2020 until 08/13/2020 [facility] [employer] Comment on above: Once for 1 Occurrences starting 08/13/20 20 until 08/13/2020 HbA1c (Bld) [Mass fraction] Hemoglobin A1C Lab Routine 08/13/2020 11:47 AM EST [facility] [place] End: 09-21-2022 Hemoglobin A1c/Hemoglobin.total in Blood [facility] Work Phone: Comment on above: 1 Occurrences starting 09/21/2022 until 09/21/2022 End: 06-08-2024 Hemoglobin A1c/Hemoglobin.total in Blood [facility] Comment on above: Once for 1 Occurrences starting 06/08/20 24 until 06/08/2024 End: 07-14-2024 Hemoglobin A1c/Hemoglobin.total in Blood Hemoglobin A1C Lab Routine One Time for 1 Occurrences starting 07/14/2024 until 07/14/2024 [facility] Work Phone: Comment on above: One Time for 1 Occurrences starting 06/26 until 07/14/2024 End: 10-11-2024 Hemoglobin A1c/Hemoglobin.total in Blood [facility] Comment on above: Once for 1 Occurrences starting 10/11/19 until 10/11/2024 End: 03-11-2021 Hepatitis A Antibody, Total Hepatitis A Antibody, Total Lab Routine Abnormal LFTs 1 Occurrences starting 03/11/2021 until 03/11/2021 [facility] Phone: Comment on above: 1 Occurrences starting 03/11/2021 until 03/11/2021 Hepatitis A Antibody , Total Hepatitis A Antibody, Total Lab Routine Abnormal LFTs 03/11/2021 12:57 PM EDT [facility] Phone: End: 03-11-2021 Hepatitis B surface antibody Hepatitis B surface antibody Lab Routine Abnormal LFTs 1 Occurrences starting 03/11/2021 until 03/11/2021 [facility] Phone: Comment on above: 1 Occurrences starting 03/11/2021 until 03/11/2021 Home BIPAP or CPAP Home BIPAP or CPAP Respiratory Care Routine QHS until discontinued starting 06/11/2023 [facility] Comment on above: QHS until discontinued starting 06/11/20 End: 11-23-2022 Home sleep study Home sleep study Sleep Center Routine Tired Fatigue, unspecified type LAYNE (obstructive sleep apnea) 1 Occurrences starting 11/23/2022 until 11/23/2022 [facility] Work Phone: Comment on above: 1 Occurrences starting 11/23/2022 until 11/23/2022 End: 03-11-2021 Immunoglobulins, Quantitative Immunoglobulins, Quantitative Lab Routine Abnormal LFTs 1 Occurrences starting 03/11/2021 until 03/11/2021 [facility] Phone: Comment on above: 1 Occurrences starting 03/11/2021 until 03/11/2021 Immunoglobulins, Quantitative Immunoglobulins, Quantitative Lab Routine Abnormal LFTs 03/11/2021 12:57 PM EDT [facility] Phone: End: 12-28-2019 MISCELLANEOUS TESTING MISCELLANEOUS TESTING Lab Routine Once for 1 Occurrences starting 12/28/2019 until 12/28/2019 [facility] [place], [place] Comment on above: Once for 1 Occurrences starting 12/28/19 20 until 12/28/2019 MISCELLANEOUS TESTING MISCELLANE OUS TESTING Lab Routine 12/28/2019 4:12 PM EDT [place] End: 03-11-2021 MITOCHONDRIAL ANTIBODIES, M2, IGG MITOCHONDRIAL ANTIBODIES, M2, IGG Lab Routine Once for 1 Occurrences starting 03/11/2021 until 03/11/2021 [facility] Phone: Comment on above: Once for 1 Occurrences starting 03/11/20 21 until 03/11/2021 MITOCHONDRIAL ANTIBO DIES, M2, IGG MITOCHONDRIAL ANTIBODIES, M2, IGG Lab Routine 03/11/2021 12:57 PM EDT [facility] Phone: End: 03-11-2021 MITOCHONDRIAL ANTIBODY W/REFLEX TITER MITOCHONDRIAL ANTIBODY W/REFLEX TITER Lab Routine Abnormal LFTs 1 Occurrences starting 03/11/2021 until 03/11/2021 [facility] Phone: Comment on above: 1 Occurrences starting 03/11/2021 until 03/11/2021 Nasal Cannula Oxygen Nasal Cannu la Oxygen Respiratory Care Routine Daily until discontinued starting 06/11/2023 [facility] Comment on above: Daily until discontinued starting 2022 End: 08-16-2019 NM GASTRIC EMPTYING NM GASTRIC EMPTYING Imaging Routine Generalized abdominal pain 1 Occurrences starting 08/16/2019 until 08/16/2019 [facility] [place] Comment on above: 1 Occurrences starting 08/16/2019 until 08/16/2019 End: 03-11-2021 Nuclear Ab [Titer] in Serum by Immunofluorescence LIZANDR[facility] Lab Routine Abnormal LFTs 1 Occurrences starting 03/11/2021 until 03/11/2021 [facility] Phone: Comment on above: 1 Occurrences starting 03/11/2021 until 03/11/2021 Nuclear Ab [Titer] i n Serum by Immunofluorescence LIZANDRO Lab Routine Abnormal LFTs 03/11/2021 12:57 PM EDT [facility] Phone: Oxygen therapy [Mini mum Data Set] Initiate Oxygen Therapy Protocol Respiratory Care Routine As Needed until discontinued starting 06/11/2023 [facility] Comment on above: As Needed until discontinued starting Oxygen therapy [Mini mum Data Set] Initiate Oxygen Therapy Protocol Respiratory Care Routine As Needed until discontinued starting 07/23/2024 [facility] Comment on above: As Needed until discontinued starting Oxygen therapy [Mini mum Data Set] Initiate Oxygen Therapy Protocol Respiratory Care Routine As Needed until discontinued starting 09/14/2024 [facility] Comment on above: As Needed until discontinued starting Oxygen therapy [Mini mum Data Set] Initiate Oxygen Therapy Protocol Respiratory Care Routine As Needed until discontinued starting 09/14/2024 [facility] Comment on above: As Needed until discontinued starting Pathology study Surgical Patholo gy Lab Routine Charcot ankle, left Diabetes (HCC) Release Upon Ordering for 1 Occurrences starting 09/14/2024 [facility] Comment on above: Release Upon Ordering for 1 Occurrences starting 09/14/2024 Positive Expiratory Pressure Therapy [facility] Comment on above: 4X Daily until discontinued starting As Needed until disc ontinued starting 06/11/2023 End: 01-19-2023 Sleep study with PAP titration Sleep study with PAP titration Sleep Center Routine LAYNE (obstructive sleep apnea) 1 Occurrences starting 01/19/2023 until 01/19/2023 [employer] Phone: Comment on above: 1 Occurrences starting 01/19/2023 until 01/19/2023 End: 03-11-2021 Smooth Muscle Antibody Quant Smooth Muscle Antibody Quant Lab Routine Once for 1 Occurrences starting 03/11/2021 until 03/11/2021 [facility] Phone: Comment on above: Once for 1 Occurrences starting 03/11/20 21 until 03/11/2021 Smooth Muscle Antibo dy Quant Smooth Muscle Antibody Quant Lab Routine 03/11/2021 12:57 PM EDT [facility] Phone: End: 07-19-2022 Smooth Muscle Antibody Quant [employer] Phone: Comment on above: 1 Occurrences starting 07/19/2022 until 07/19/2022 Surgical Pathology Surgical Path ology Lab Routine Screening for colon cancer Release Upon Ordering for 1 Occurrences starting 12/08/2022 [employer] Phone: Comment on above: Release Upon Ordering for 1 Occurrences starting 12/08/2022 Vibratory Airway Clearance [facility] Comment on above: As Needed until discontinued starting TID until discontinu ed starting 06/11/2023 Immunizations Immunization Date Immunization Notes Care Provider Fa [facility] 03-25-2023 zoster vaccine recombinant [facility]2023 zoster recombinant adjuvanted vaccine (SHINGRIX) 50 MCG/0.5ML SUSR injection [facility] 07-25-2020 influenza, injectabl e, quadrivalent, contains preservative [facility] 06-11-2019 influenza, injectabl e, quadrivalent, preservative free Vivian Might [facility] 08-24-2018 influenza, injectabl e, quadrivalent, preservative free Vivian Might [place], [place] 05-10-2018 pneumococcal polysac charide vaccine, 23 valent Vivian Might [facility] 07-09-2015 influenza virus vacc ine, unspecified formulation Vivian Might [facility] 07-04-2013 influenza virus vacc ine, unspecified formulation Vivian Might [facility] 08-29-2009 novel influenza-H1N1 -09, preservative-free, injectable Vivian Might [place], [place] Payers Date Payer Category Payer Unknown [id number] 2022 Self-pay [id number] 2022 Unknown 2021 Unknown BCBS [place] - [place] P PO [id number] 2021-Present [phone] [address] [place] [address] [id number] .[id number] 2020 Private Health Insurance [id number] .[id number] 2017 Unknown [employer] M [employer] [address] xxxxxxxxxxxx 2017-Present [phone] [address] [place] [address] xxxxxxxxxxxx 1.2.840.205982.1.13.239.2 .7.3.566786.315 1973 Unknown [id number] 2.16.840.1.447114.3.579.2 .182 1973 Unknown [id number] 2.16.840.1.482849.3.579.2 .593 1973 Unknown [id number] 2.16.840.1.206699.3.579.2 .593 1973 Unknown [id number] 2.16.840.1.409271.3.579.2 .593 1973 Unknown [id number] 2.16.840.1.012741.3.579.2 .593 1973 Unknown [id number] 2.16.840.1.543503.3.579.2 .593 1973 Unknown [id number] 2.16.840.1.319719.3.579.2 .593 1973 Unknown [id number] 2.16.840.1.567135.3.579.2 .593 1973 Unknown [id number] 2.16.840.1.946595.3.579.2 .593 1973 Unknown [id number] 2.16.840.1.942650.3.579.2 .593 1973 Unknown [id number] 2.16.840.1.356750.3.579.2 .593 1973 Unknown [id number] 2.16.840.1.440293.3.579.2 .593 1973 Unknown [id number] 2.16.840.1.240742.3.579.2 .593 1973 Unknown [id number] 2.16.840.1.413224.3.579.2 .593 1973 Unknown [id number] 2.16.840.1.407624.3.579.2 .593 1973 Unknown [id number] 2.16.840.1.155855.3.579.2 .593 1973 Unknown [id number] 2.16.840.1.663584.3.579.2 .593 1973 Unknown [id number] 2.16.840.1.918761.3.579.2 .176 1973 Unknown [id number] 2.16.840.1.795531.3.579.2 .176 1973 Unknown [id number] 2.16.840.1.517960.3.579.2 .176 1973 Unknown [id number] 2.16.840.1.113526.3.579.2 .176 1973 Unknown [id number] 2.16.840.1.537296.3.579.2 .196 1973 Unknown [id number] 2.16.840.1.423427.3.579.2 .196 1973 Unknown [id number] 2.16.840.1.459224.3.579.2 .196 1973 Unknown [id number] 2.16.840.1.251615.3.579.2 .196 1973 Unknown [id number] 2.16.840.1.628790.3.579.2 .196 1973 Unknown [id number] 2.16.840.1.171514.3.579.2 .196 1973 Unknown [id number] 2.16.840.1.608757.3.579.2 .173 1973 Unknown [id number] 2.16.840.1.955527.3.579.2 .173 1973 Unknown [id number] 2.16.840.1.817518.3.579.2 .173 1973 Unknown [id number] 2.16.840.1.950330.3.579.2 .173 1973 Unknown [id number] 2.16.840.1.694012.3.579.2 .173 1973 Unknown [id number] 2.16.840.1.675126.3.579.2 .173 1973 Unknown [id number] 2.16.840.1.015549.3.579.2 .173 1973 Unknown [id number] 2.16.840.1.513122.3.579.2 .173 1973 Unknown [id number] 2.16.840.1.257252.3.579.2 .173 1973 Unknown [id number] 2.16.840.1.875938.3.579.2 .173 1973 Unknown [id number] 2.16.840.1.996580.3.579.2 .173 1973 Unknown [id number] 2.16.840.1.864737.3.579.2 .173 1973 Unknown [id number] 2.16.840.1.368522.3.579.2 .173 1973 Unknown [id number] 2.16.840.1.833059.3.579.2 .1973 Unknown [id number] 2.16.840.1.570346.3.579.2 .1973 Unknown [id number] 2.16.840.1.972341.3.579.2 .1973 Unknown [id number] 2.16.840.1.486650.3.579.2 .1973 Unknown [id number] 2.16.840.1.691720.3.579.2 .1973 Unknown [id number] 2.16.840.1.463004.3.579.2 .173 1973 Unknown [id number] 2.16.840.1.118446.3.579.2 .173 1973 Unknown [id number] 2.16.840.1.199087.3.579.2 .173 1973 Unknown [id number] 2.16.840.1.244288.3.579.2 .1973 Unknown [id number] 2.16.840.1.312771.3.579.2 .173 1973 Unknown [id number] 2.16.840.1.449809.3.579.2 .1973 Unknown [id number] 2.16.840.1.140641.3.579.2 .173 1973 Unknown [id number] 2.16.840.1.598646.3.579.2 .173 1973 Unknown [id number] 2.16.840.1.324641.3.579.2 .1973 Unknown [id number] 2.16.840.1.963920.3.579.2 .173 1973 Unknown [id number] 2.16.840.1.558981.3.579.2 .1973 Unknown [id number] 2.16.840.1.493623.3.579.2 .1973 Unknown [id number] 2.16.840.1.594762.3.579.2 .1973 Unknown [id number] 2.16.840.1.683914.3.579.2 .1973 Unknown [id number] 2.16.840.1.763672.3.579.2 .1973 Unknown [id number] 2.16.840.1.444313.3.579.2 .1973 Unknown [id number] 2.16.840.1.553452.3.579.2 .1973 Unknown [id number] 2.16.840.1.872907.3.579.2 .173 1973 Unknown [id number] 2.16.840.1.634506.3.579.2 .173 1973 Unknown [id number] 2.16.840.1.307756.3.579.2 .1973 Unknown [id number] 2.16.840.1.691018.3.579.2 .1973 Unknown [id number] 2.16.840.1.054944.3.579.2 .1973 Unknown [id number] 2.16.840.1.345868.3.579.2 .173 1973 Unknown [id number] 2.16.840.1.691085.3.579.2 .173 1973 Unknown [id number] 2.16.840.1.797664.3.579.2 .175 1973 Unknown [id number] 2.16.840.1.158410.3.579.2 .175 1973 Unknown [id number] 2.16.840.1.681932.3.579.2 .175 1973 Unknown [id number] 2.16.840.1.867359.3.579.2 .175 1973 Unknown [id number] 2.16.840.1.403893.3.579.2 .175 1973 Unknown [id number] 2.16.840.1.326109.3.579.2 .175 1973 Unknown [id number] 2.16.840.1.095260.3.579.2 .175 1959 Unknown [id number] 1.2.840.099463.1.13.239.2 .7.3.790106.315 Unknown [id number] 2.16.840.1.030319.3.579.2 .531 Unknown [id number] 2.16.840.1.655430.3.579.2 .531 Unknown [id number] 2.16.840.1.687566.3.579.2 .531 Unknown [id number] 2.16.840.1.208407.3.579.2 .531 Social History Date Type Detail Facility Start: 07-13-2019 End: 09-07-2024 Tobacco smoking status NEIS Current every day smoker [facility] History of tobacco use Cigarette Smoker [place], [place] Start: 07-13-2019 End: 09-14-2024 Cigarettes smoked current (pack per day) - Reported [facility] Start: 07-13-2019 End: 09-14-2024 Alcohol intake No [facility] Start: 1975 Sex Assigned At Not on file M [place], [place] Start: 07-26-2019 End: 01-17-2025 Alcohol intake Current non-drinker of alcohol (finding) [place] Start: 06-24-2020 End: 09-07-2024 Tobacco use and exposure Never used [place] Start: 07-27-2022 End: 12-08-2022 Exposure to SARS-CoV-2 (event) Not sure [place] Start: 03-18-2021 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 Never [facility] How many standard drinks containing alcohol do you have on a typical day? Patient does not drink [facility] (I/We) worried wheth er (my/our) food would run out before (I/we) got money to buy more. DK or Refused [facility] Has the electric, [employer], oil, or water company threatened to shut off services in your home in past 12Mo No [facility] (I/We) worried wheth er (my/our) food would run out before (I/we) got money to buy more. Never true [facility] Start: 11-05-2012 Sex Female (finding) [facility] [place] Start: 01-01-2025 Gender identity Identifies as female gender (finding) [facility] Medical Equipment Procedure Code Equipment Code Equipment Origin al Text Equipment Identifier Dates 1 each by Does n ot apply route 5 times daily [id number] Start: 2019 Pin Fix Fidelia Pt 2 End 564x9 In Smooth Ss Str Monica - [id number] Start: 07-23-2024 K Wire Fix L6in Dia1.6mm St S Stl 3 Side Dbl Trcr Both End - [id number])[id number] 5, [id number] FDA Start: 07-23-2024 K Wire Fix L6in Dia1.6mm St S Stl 3 Side Dbl Trcr Both End - [id number])[id number] 4, [id number] FDA Start: 07-23-2024 Pin Fix Fidelia Pt 1 End x9 In Thrd Ss Ns Steinmann - [id number] Start: 07-23-2024 Graft Bone Sub 5 cc Pure Allosync - [id number] Start: 09-14-2024 Comment on above: Description: [id number] Graft Bone Sub 2.5cc Allosync Pure - [id number] Start: 09-14-2024 Comment on above: Description: [id number] l Hi Compr G-Beam Fus Beaming Sys - [id number] Start: 09-14-2024 Screw Bne Fusion Lg 7.4x70 Mm Ss Strl G-Beam - [id number] Start: 09-14-2024 Screw Bne Fusion Sm 5.4x80 Mm Ss Strl G-Beam - [id number] Start: 09-14-2024 Screw Bne Fusion Sm 5.4x120 Mm Ss Strl G-Beam - [id number] Start: 09-14-2024 Screw Bne Fusion Sm 5.4x120 Mm Ss Strl G-Beam - [id number] Start: 09-14-2024 Clinical Notes 12-04-2020 to 01-29-2025 Karrie Valadez - 01/29/2025 10:45 AM EDKarrie Anaya - 01/22/2025 11:30 AM EDKarrie Anaya - 01/22/2025 11:30 AM Makayla Mahoney PTA - 01/17/2025 2:45 PM EDTDischarge InstructionsAttachments Note Date & Type Note Facility 01-29-2025 History of Present illness Narrative [facility] Inpatient/Observation/Outpatient Rehabilitation Date: 01/29/2025 Patient Name: [...] does not require skilled services due to: Therapist/Receiving Barn Custodian will attempt to see this patient, at our earliest opportunity. Karrie Valadez Date: 01/29/2025 Cosigned by Vineet Block, PT at 01/29/2025 8:19 AM EDT documented in this encounter [facility] 01-22-2025 History of Present illness Narrative [facility] Inpatient/Observation/Outpatient Rehabilitation Date: 01/22/2025 Patient Name: [...] does not require skilled services due to: Therapist/Receiving Barn Custodian will attempt to see this patient, at our earliest opportunity. Karrie Valadez Date: 01/22/2025 Cosigned by Hussein Rich PTA at 01/22/2025 7:40 AM EDT [facility] Inpatient/Observation/Outpatient Rehabilitation Date: 01/24/2025 Patient Name: [...] does not require skilled services due to: Therapist/Receiving Barn Custodian will attempt to see this patient, at our earliest opportunity. Karrie Valadez Date: 01/24/2025 Cosigned by Alanna Chappell PTA at 01/24/2025 9:24 AM EDT documented in this encounter [facility] 01-17-2025 History of Present illness Narrative Physical Therapy [facility] Outpatient Physical Therapy Daily Note Patient: Risa Warner : 1975 CSN #: [id number] Referring Physician: Meera Mike DPM Date: 01/17/2025 Treatment Diagnosis: s/p L Lisfranc injury with beam placement, L foot pain Onset Date: 07/13/24 PT Insurance Information: Medical Gay Total # of Visits Approved: 22 Per [...] tolerate exercise without increased pain or symptoms.-met Longterm Goals Time Frame for [facility] Goals : 6 weeks Longterm Goal 1: Patient will be independent and compliant with a HEP - progressing [facility] Goal 2: Patient will improve bilateral ankle dorsiflexion ROM to >7* for ambulation. MET- 10 degrees left DF (01/08/2025) [facility] Goal 3: Patient will improve L ankle strength to >/= 4/5 in all planes to improve stability with ambulation. progressing (01/08/2025) left DF: 4/5, PF: 4/5:,Inv 4/5:, Evr: 4-/5, pain with planterflexion and eversion [facility] Goal 4: Patient will be able to hold SLS for 30 seconds without LOB: unable to fully WB on LLE due to instability - not able to attempt yet at this time [facility] Goal 5: Patient will report 70% improvement in overall symptoms and function. Minutes Tracking: Time In: 1446 Time Out: 1531 Minutes: 45 Timed Code Treatment Minutes: 43 Minutes Makayla Lozoya PTA Date: 01/17/2025 Cosigned by Vineet Matos, PT at 01/17/2025 4:34 PM EDT documented in this encounter [facility] 01-14-2025 History of Present illness Narrative [facility] Inpatient/Observation/Outpatient Rehabilitation Date: 01/14/2025 Patient Name: [...] does not require skilled services due to: Therapist/Receiving Barn Custodian will attempt to see this patient, at our earliest opportunity. Karrie Valadez Date: 01/14/2025 Cosigned by Makayla Lozoya PTA at 01/14/2025 8:36 AM EDT documented in this encounter [facility] 01-08-2025 History of Present illness Narrative Physical Therapy [facility] Outpatient Physical Therapy Daily Note Patient: Risa Warner : 1975 CSN #: [id number] Referring Physician: Meera Mike DPM Date: 01/08/2025 Treatment Diagnosis: s/p L Lisfranc injury with beam placement, L foot pain Onset Date: 07/13/24 PT Insurance Information: Medical Gay Total # of Visits Approved: 12 Per [...] HS curls 15x BLEs // mini squats o59--xuog shoe donned 1 UE support Exercise 11: [...] tolerate exercise without increased pain or symptoms.-met [facility] Goals Time Frame for Longterm Goals : 6 weeks [facility] Goal 1: Patient will be independent and compliant with a HEP Longterm Goal 2: Patient will improve bilateral ankle dorsiflexion ROM to >7* for ambulation. MET- 10 degrees left DF (01/08/2025) Longterm Goal 3: Patient will improve L ankle strength to >/= 4/5 in all planes to improve stability with ambulation. progressing (01/08/2025) left DF: 4/5, PF: 4/5:,Inv 4/5:, Evr: 4-/5, pain with planterflexion and eversion [facility] Goal 4: Patient will be able to hold SLS for 30 seconds without LOB: unable to fully WB on LLE due to instability Longterm Goal 5: Patient will report 70% improvement in overall symptoms and function. Minutes Tracking: Time In: 1432 Time Out: 1512 Minutes: 40 Timed Code Treatment Minutes: 40 Minutes Hussein Rich PTA Date: 01/08/2025 Cosigned by Vineet Matos, PT at 01/08/2025 3:24 PM EDT documented in this encounter [facility] 12-31-2024 History of Present illness Narrative [facility] Outpatient Physical Therapy Daily Note Patient: Risa Warner : 1975 CSN #: [id number] Referring Physician: Meera Mike DPM Date: 12/31/2024 Treatment Diagnosis: s/p L Lisfranc injury with beam placement, L foot pain Onset Date: 07/13/24 PT Insurance Information: Medical Gay Total # of Visits Approved: 12 Per [...] HS curls 15x BLEs // mini squats z63--lnpi shoe donned Exercise 11: seated heel slides [...] tolerate exercise without increased pain or symptoms.-met Longterm Goals Time Frame for [facility] Goals : 6 weeks Longterm Goal 1: Patient will be independent and compliant with a HEP Longterm Goal 2: Patient will improve bilateral ankle dorsiflexion ROM to >7* for ambulation. MET- 10 degrees left DF this date after manual (12/19/2024) Longterm Goal 3: Patient will improve L ankle strength to >/= 4/5 in all planes to improve stability with ambulation. Longterm Goal 4: Patient will be able to hold SLS for 30 seconds without LOB [facility] Goal 5: Patient will report 70% improvement in overall symptoms and function. Minutes Tracking: Time In: 1245 Time Out: 1330 Minutes: 45 Alanna Chappell PTA Date: 12/31/2024 Cosigned by Vineet Matos, PT at 12/31/2024 6:53 PM EDT documented in this encounter [facility] 12-24-2024 History of Present illness Narrative [facility] Outpatient Physical Therapy Daily Note Patient: Risa Warner : 1975 CSN #: [id number] Referring Physician: Meera Mike DPM Date: 12/24/2024 Treatment Diagnosis: s/p L Lisfranc injury with beam placement, L foot pain Onset Date: 07/13/24 PT Insurance Information: Medical Gay Total # of Visits Approved: 12 Per [...] Exercise 9: Seated LAQ, adduction, HS curl lower [place] tband 15x ea, marching 15x Exercise 10: [...] tolerate exercise without increased pain or symptoms.-Progressing Longterm Goals Time Frame for [facility] Goals : 6 weeks Longterm Goal 1: Patient will be independent and compliant with a HEP [facility] Goal 2: Patient will improve bilateral ankle dorsiflexion ROM to >7* for ambulation. MET- 10 degrees left DF this date after manual (12/19/2024) Longterm Goal 3: Patient will improve L ankle strength to >/= 4/5 in all planes to improve stability with ambulation. Longterm Goal 4: Patient will be able to hold SLS for 30 seconds without LOB Longterm Goal 5: Patient will report 70% improvement in overall symptoms and function. Minutes Tracking: Time In: 1245 Time Out: 1330 Minutes: 45 Alanna Chappell PTA Date: 12/24/2024 Cosigned by Vineet Matos PT at 12/24/2024 7:25 PM EDT documented in this encounter [facility] 12-19-2024 History of Present illness Narrative Physical Therapy [facility] Outpatient Physical Therapy Daily Note Patient: Risa Warner : 1975 CSN #: [id number] Referring Physician: Meera Mike DPM Date: 12/19/2024 Treatment Diagnosis: s/p L Lisfranc injury with beam placement, L foot pain Onset Date: 07/13/24 PT Insurance Information: Medical Gay Total # of Visits Approved: 12 Per [...] Exercise 9: Seated LAQ, adduction, HS curl lower [place] tband 10x ea, marching 15x Exercise 10: [...] tolerate exercise without increased pain or symptoms.-Progressing [facility] Goals Time Frame for [facility] Goals : 6 weeks [facility] Goal 1: Patient will be independent and compliant with a HEP [facility] Goal 2: Patient will improve bilateral ankle dorsiflexion ROM to >7* for ambulation. MET- 10 degrees left DF this date after manual (12/19/2024) [facility] Goal 3: Patient will improve L ankle strength to >/= 4/5 in all planes to improve stability with ambulation. Longterm Goal 4: Patient will be able to hold SLS for 30 seconds without LOB [facility] Goal 5: Patient will report 70% improvement in overall symptoms and function. Minutes Tracking: Time In: 1338 Time Out: 1439 Minutes: 61 Timed Code Treatment Minutes: 61 Minutes Hussein Rich PTA Date: 12/19/2024 Cosigned by Sonia Baum, PT at 12/19/2024 3:21 PM EDT documented in this encounter [facility] 12-17-2024 History of Present illness Narrative Physical Therapy [facility] Inpatient/Observation/Outpatient Rehabilitation Date: 12/17/2024 Patient Name: [...] does not require skilled services due to: Therapist/Receiving Barn Custodian will attempt to see this patient, at our earliest opportunity. Maxim Garcia Date: 12/17/2024 Cosigned by Alanna Chappell PTA at 12/17/2024 8:50 AM EDT documented in this encounter [facility] 12-05-2024 History of Present illness Narrative Physical Therapy [facility] Outpatient Physical Therapy Daily Note Patient: Risa Warner : 1975 CSN #: [id number] Referring Physician: Meera Mike DPM Date: 12/05/2024 Treatment Diagnosis: s/p L Lisfranc injury with beam placement, L foot pain Onset Date: 07/13/24 PT Insurance Information: Medical Gay Total # of Visits Approved: 12 Per [...] tolerate exercise without increased pain or symptoms.-Progressing Marine Diver Goals Time Frame for Longterm Goals : 6 weeks Marine Diver Goal 1: Patient will be independent and compliant with a HEP Longterm Goal 2: Patient will improve bilateral ankle dorsiflexion ROM to >7* for ambulation. Longterm Goal 3: Patient will improve L ankle strength to >/= 4/5 in all planes to improve stability with ambulation. Longterm Goal 4: Patient will be able to hold SLS for 30 seconds without LOB Marine Diver Goal 5: Patient will report 70% improvement in overall symptoms and function. Minutes Tracking: Time In: 1432 Time Out: 1515 Minutes: 43 Timed Code Treatment Minutes: 40 Minutes Makayla Lozoya PTA Date: 12/05/2024 Cosigned by Vineet Matos, PT at 12/05/2024 7:38 PM EDT documented in this encounter [facility] 12-03-2024 History of Present illness Narrative Physical Therapy [facility] Outpatient Physical Therapy Daily Note Patient: Risa Warner : 1975 CSN #: [id number] Referring Physician: Meera Mike DPM Date: 12/03/2024 Treatment Diagnosis: s/p L Lisfranc injury with beam placement, L foot pain Onset Date: 07/13/24 PT Insurance Information: Medical Gay Total # of Visits Approved: 12 Per [...] tolerate exercise without increased pain or symptoms.-Progressing Marine Diver Goals Time Frame for Longterm Goals : 6 weeks Longterm Goal 1: Patient will be independent and compliant with a HEP Longterm Goal 2: Patient will improve bilateral ankle dorsiflexion ROM to >7* for ambulation. Marine Diver Goal 3: Patient will improve L ankle strength to >/= 4/5 in all planes to improve stability with ambulation. Longterm Goal 4: Patient will be able to hold SLS for 30 seconds without LOB Longterm Goal 5: Patient will report 70% improvement in overall symptoms and function. Minutes Tracking: Time In: 1230 Time Out: 1316 Minutes: 46 Timed Code Treatment Minutes: 42 Minutes Makayla Lozoya PTA Date: 12/03/2024 Cosigned by Vineet Matos, PT at 12/03/2024 1:41 PM EDT documented in this encounter [facility] 11-29-2024 History of Present illness Narrative Physical Therapy [facility] Inpatient/Observation/Outpatient Rehabilitation Date: 11/29/2024 Patient Name: Rias Warner [] Inpatient Acute/Observation [x] Outpatient : [...] does not require skilled services due to: Therapist/Receiving Barn Custodian will attempt to see this patient, at our earliest opportunity. Maxim Garcia Date: 11/29/2024 Cosigned by Alanna Chappell PTA at 11/29/2024 8:47 AM EST documented in this encounter [facility] 09-15-2024 History of Present illness Narrative [facility] Occupational Therapy Evaluation Date: 09/15/24 Patient Name: Risa Warner Room: Account: [id number] : 1975 (49 y.o.) Gender: female Discharge [...] Level of Assist for Transfers: Independent Active Concessions Manager: No Patient's Concessions Manager Info: spouse or dtr Mode of [...] Demonstrated understanding, Verbalized understanding Functional Outcome Measures [facility] Daily Activity - Inpatient How much help [...] How much help for eating meals?: None [facility] Inpatient Daily Activity Raw Score: 19 [facility] Inpatient ADL T-Scale Score : 40.22 ADL [...] Code Treatment Minutes: 11 Minutes Physical Therapy [facility] Physical Therapy Evaluation Date: 09/15/24 Patient Name: Risa Warner Room: - Account: [id number] : 1975 (49 y.o.) Gender: female Discharge [...] is a 49 y.o. female seen at [facility] for postoperative pain. Patient is admitted [...] Level of Assist for Transfers: Independent Active Concessions Manager: No Patient's Concessions Manager Info: spouse or dtr Mode of [...] pt prefers to use bilateral walker hand shank scourer despite cues and bathroom rail and sink [...] climbing 3-5 steps with a railing?: Total [facility] Inpatient Mobility Raw Score : 18 [facility] Inpatient T-Scale Score : 43.63 Mobility Inpatient CMS 0-100% Score: 46.58 Mobility Inpatient [facility] G-Code Modifier : CK Goals Patient Goals [...] blood sugar 280 documented in this encounter [facility] 09-15-2024 Hospital Discharge instructions Angely Martínez RN [...] Agent's Name Healthcare Agent's Phone Number 09/14/24 [phone] Yes, patient has an advance directive for healthcare treatment Durable power of code clerk for health care;Living will Yes, copy in chart -- -- -- Admitting Physician: Meera Mike DPM PCP: Vivian Oseguera APRN - [place] Discharging Nurse: Discharging Hospital Unit/Room#: - Discharging Unit Phone Number: Emergency Contact: Extended Emergency Contact Information Primary Emergency Contact: Yoel Warner Address: [address] [place] [phone] Mobile Relation: Spouse Past Surgical History: Past Surgical History: Procedure Laterality Date ANKLE SURGERY Left 07/23/2024 ANKLE EXTERNAL FIXATOR APPLICATION (ORTHOFIX) performed by Meera Mike DPM at [facility] OR BLADDER SUSPENSION CARDIAC CATHETERIZATION Left 12/31/2015 right radial / Dr. Vargas/ No stents COLONOSCOPY N/A 12/08/2022 COLONOSCOPY POLYPECTOMY SNARE/COLD BIOPSY performed by Tari Curtis MD at [facility] OR COLONOSCOPY 12/08/2022 -polyps(hyperplastic)tor tuous colon CYSTOSCOPY Left with stent FOOT CLOSED REDUCTION Left 07/23/2024 FOOT CLOSED REDUCTION PINNING performed by Meera Mike DPM at [facility] OR FOOT SURGERY Left 09/14/2024 REMOVE EXTERNAL FIXATOR LEFT FOOT performed by Meera Mike DPM at [facility] OR FOOT SURGERY Left 09/14/2024 SUBTALAR JOINT FUSION FUSION MIDFOOT MULTIPLE JOINTS LEFT FOOT performed by Meera Mike DPM at [facility] OR HYSTERECTOMY (CERVIX STATUS UNKNOWN) KIDNEY [...] Immunization History Administered Date(s) Administered Influenza A ([id number]) Vaccine PF IM 08/29/2009 Influenza Virus Vaccine [...] Pain in upper limb M79.603 Diabetic neuropathy ([facility]) E11.40 Fibromyalgia M79.7 Depression F32.A Controlled type 2 diabetes mellitus with diabetic polyneuropathy, with long-term current use of insulin ([facility]) E11.42, Z79.4 Ureteric calculus N20.1 Gross hematuria R31.0 History of kidney stones Z87.442 Renal stones N20.0 Idiopathic acute pancreatitis K85.00 Hypertriglyceridemia E78.1 SIRS without infection with organ dysfunction ([facility]) R65.11 Generalized abdominal pain R10.84 Perirectal abscess K61.1 Tobacco abuse Z72.0 Essential hypertension I10 Dyslipidemia E78.5 Type 2 diabetes mellitus with hyperglycemia ([facility]) E11.65 Multiple joint pain M25.50 Abnormal LFTs [...] 2 diabetes mellitus with Charcot joint arthropathy ([facility]) E11.610 Charcot joint of left foot M14.672 Acquired posterior equinus, left M21.862 Post-op pain G89.18 Diabetes ([facility]) E11.9 Multiple closed fractures of metatarsal bone [...] MENTAL STATUS:} IV Access: { SHAR IV ACCESS:412326899} Nursing Mobility/ADLs: Walking {CHP DME ADLs:648978915} Transfer {CHP DME ADLs:379361453} Bathing {CHP DME ADLs:172824056} Dressing {CHP DME ADLs:551533786} Toileting {CHP DME ADLs:528792928} Feeding {CHP DME ADLs:906144685} Acoustic Engineer {P DME ADLs:293229649} Med Delivery { SHAR MED Delivery:485539401} Wound Care Documentation and Therapy: Incision 09/14/24 Foot Left (Active) Dressing Status Clean;Dry;Intact 09/14/241940 Dressing/Treatment Katlyn wrap 09/14/241940 Incision Assessment Other (Comment) 09/14/241940 Drainage Amount None (dry) 09/14/241940 Odor None 09/14/24 1305 Number of days: 0 Elimination: Continence: Bowel: {YES / NO:} Bladder: {YES / NO:} Urinary Catheter: {Urinary Catheter:968426646} Colostomy/Ileostomy/Ileal Conduit: {YES / NO:} Date of Last BM: Intake/Output Summary (Last 24 hours) at 09/15/2024 0712 Last data filed at 09/14/2024 1315 Gross per 24 hour Intake 1950 ml Output 550 ml Net 1400 ml I/O last 3 completed shifts: In: 1950 [I.V.:1950] Out: 550 [Urine:450; Blood:100] Safety Concerns: { SHAR Safety Concerns:011111957} Impairments/Disabilities: {[facility] Impairments/Disabilities:8766505 73} Nutrition Therapy: Current Nutrition Therapy: { SHAR Diet List:247311464} Routes of Feeding: {[facility] DME Other Feedings:078117572} Liquids: {Community Development Technician liquid thickness:93409} Daily Fluid Restriction: {[facility] DME Yes amt example:540177269} Last Modified Barium Swallow with Video (Video Swallowing Test): {Done Not Done Date:} Treatments at the Time of Hospital Discharge: Respiratory Treatments: Oxygen Therapy: {Therapy; copd oxygen:33813} Ventilator: {[facility] Vent List:150777117} Rehab Therapies: {THERAPEUTIC INTERVENTION:1521566874} Weight Bearing Status/Restrictions: {[facility] Weight Bearin} Other Medical Equipment (for information only, NOT a DME order): {EQUIPMENT:544752202} Other Treatments: Patient's personal belongings (please select all that are sent with patient): {[facility] DME Belongings:617359877} RN SIGNATURE: {Esignature:725555447} CASE MANAGEMENT/SOCIAL WORK SECTION Inpatient Status Date: Readmission Risk Assessment Score: [facility] RISK OF UNPLANNED READMISSION 2.0 0 Total Score Discharging to Facility/ Agency Name: Address: Phone: Fax: Dialysis Facility (if applicable) Name: Address: Dialysis Schedule: Phone: Fax: Vice President Of Marketing/Case Advocate signature: {Esignature:963942518} PHYSICIAN SECTION Prognosis: Fair Condition at Discharge: Stable Rehab Potential (if transferring to Rehab): {Prognosis:8235505605} Recommended Labs or Other Treatments After Discharge: [...] she requires {Admit to Appropriate Level of Care:35408} for {GREATER/LESS:540655899} 30 days. Update Admission H&P: No change in H&P PHYSICIAN SIGNATURE: Meera Mike DPM The following attachments cannot be sent through Care Everywhere.doxycycline (oral/injection) (Dominican)hydrocodone (oral) (Dominican)documented in this encounter [facility] 09-07-2024 Hospital Discharge instructions Geno Douglas RN [...] powder, deodorant, jewelry, piercings, perfume, makeup, nail martiniquais, hair accessories, or hair spray on the day of surgery. Wear loose comfortable clothing. Leave your valuables at home but bring a payment source for any after-surgery prescriptions you plan to fill at [facility]. Bring a storage case for any glasses/contacts. An adult who is responsible for you MUST drive you home and should be with you for the first 24 hours after surgery. If having out-patient knee and foot surgeries, please arrange for planned crutches, walker, or wheelchair before arriving to the hospital. The Day of Surgery: Arrive at [facility] Surgery Entrance at the time directed by your surgeon and check in at the desk. If you have a living will or healthcare power of code clerk, please bring a copy. You will be taken to the pre-op holding area where you will be prepared for surgery. A physical assessment will be performed by a nurse practitioner or powerhouse electrician apprentice. Your IV will be started and you [...] recovery room. documented in this encounter [facility] 07-26-2024 History of Present illness Narrative CLINICAL [...] Last Encounter 07/26/24 Assessment/Intervention/Outcome Intervention Prayer (assurance of)/[place] 07/25/24 1523 Encounter Summary Encounter Overview/Reason Volunteer Encounter Service Provided For Patient Last Encounter 07/25/24 Assessment/Intervention/Outcome Intervention Prayer (assurance of)/[place] [facility] Physical Therapy Date: 07/25/2024 Patient Name: [...] snee scooter mod-I household distances and mobility [facility] Basic Mobility - Inpatient How much [...] 3-5 steps with a railing?: A Lot [facility] Inpatient Mobility Raw Score : 19 [facility] Inpatient T-Scale Score : 45.44 Mobility [...] is a 49 y.o. female seen at [place] for postoperative abdomen after application of a multiplanar external fixator, percutaneous foot excision tarsal fracture, consider lengthening, no close treatment tarsometatarsal dislocation on 07-15-2024. Patient had injury to left lower extremity incidentally after walking where she was seen in [facility] almost 2 weeks ago. She followed Dr. [...] on 07/25/2024 at 3:36 PM Board Certified, [place] Board of Podiatric Surgery Fellow, [employer] [facility] Occupational Therapy Evaluation Date: 07/24/24 Patient Name: Risa Warner Room: -01 Account: [id number] : 1975 (49 y.o.) Gender: female Discharge [...] utilizing knee scooter,) Transfer Assistance: Independent Active Concessions Manager: Yes Mode of Transportation: Car Occupation: [...] understanding, Continued education needed Functional Outcome Measures [facility] Daily Activity - Inpatient How much help [...] How much help for eating meals?: None [facility] Inpatient Daily Activity Raw Score: 19 [facility] Inpatient ADL T-Scale Score : 40.22 ADL Inpatient CMS 0-100% Score: 42.8 ADL Inpatient [facility] G-Code Modifier : CK Goals Short Term [...] Treatment Minutes: 33 Minutes Physical Therapy Facility/Department: [facility] Physical Therapy Initial Assessment Name: Risa [...] utilizing knee scooter,) Transfer Assistance: Independent Active Concessions Manager: Yes Mode of Transportation: Car Occupation: [...] Standing - Dynamic: Fair (CGA with RW) [facility] - Mobility [facility] Basic Mobility - Inpatient How much help [...] 3-5 steps with a railing?: A Lot [facility] Inpatient Mobility Raw Score : 17 [facility] Inpatient T-Scale Score : 42.13 Mobility Inpatient [...] is a 49 y.o. female seen at [place] for postoperative abdomen after application of a multiplanar external fixator, percutaneous foot excision tarsal fracture, consider lengthening, no close treatment tarsometatarsal dislocation on 07-15-2024. Patient had injury to left lower extremity incidentally after walking where she was seen in [place] [facility] almost 2 weeks ago. She followed [...] on 07/24/2024 at 9:57 AM Board Certified, [place] Board [employer] Podiatric Surgery Fellow, [employer] Pre op blood sugar 188 documented in this encounter [facility] 07-26-2024 Hospital course Narrative Images from the original note were not included. Discharge Summary Podiatric Medicine and Surgery Patient Identification Risa Warner is a 49 y.o. female : 1975 Acct: [id number] Admit date: 07/23/2024 Discharge date and time: [...] weeks with assistive device. Discharge home in [place]. present. Consults: Podiatry, IM, CM, PT OT [...] 5-325 MG per tablet Commonly known as: [place] Where to Get Your Medications These medications were sent to [id number] - [place], [place] - [address] [facility] - P [phone] - F [phone] [place] [id number] acetaminophen 500 MG tablet oxyCODONE-acetaminophen 5-325 MG per tablet These medications were sent to [facility] [address] [place] [address] 18 - P [phone] - F [phone] [place], [place] [id number] albuterol sulfate HFA 108 (90 Base) MCG/ACT [...] inpatient stay. documented in this encounter [facility] 07-26-2024 Hospital Discharge instructions Sreekanth Weber DPM [...] schedule or confirm your appointment. Call your Track Production Engineer office if you have any questions or concerns. documented in this encounter [facility] 07-18-2024 Hospital Discharge instructions Ashanti Harris RN [...] powder, deodorant, jewelry, piercings, perfume, makeup, nail martiniquais, hair accessories, or hair spray on the day of surgery. Wear loose comfortable clothing. Leave your valuables at home. Bring a storage case for any glasses/contacts. The Day of Surgery: Arrive at [facility] Surgery Entrance at the time directed by your surgeon and check in at the desk. 12:00 pm If you have a living will or healthcare power of code clerk, please bring a copy. You will be taken to the pre-op holding area where you will be prepared for surgery. A physical assessment will be performed by a nurse practitioner or powerhouse electrician apprentice. Your IV will be started and you [...] in your room. documented in this encounter [facility] 07-14-2024 Hospital Discharge instructions Jesus Singh DO [...] been evaluated in the Emergency Department at [facility] 07/14/2024 Your recommendations and if necessary prescriptions from today's visit: -Follow-up with podiatry as noted above -Take medication as prescribed -Follow-up with your PCP If you do not have a primary care provider, establish care with a provider that you can begin to regularly follow-up with. Should you have any questions regarding your care or further treatment, please call [facility] Emergency Department at [phone]. PLEASE RETURN TO THE EMERGENCY DEPARTMENT IMMEDIATELY for -Numbness, tingling, weakness, significant pain not controlled at home OR -Changing symptoms -Worsening symptoms -Unable to follow up with your primary care provider -Any other care or concern documented in this encounter [facility] 06-12-2024 Note This is a Telehealth Appointment [...] she follows with a GI specialist in [place]. Due to this has not tolerated several [...] repeat rule of 15's. -Continue to eat 2193-8116 calories per day. Best to consume calories divided into 3 meals per day. Avoid all sugared pop and other sweet drinks. Eat less sweet, white, and fast foods. -Continue to exercise as frequently as possible. Recommend at least 10,000 steps per day. When possible engage in moderate to inten (more content not included)... [facility] 04-23-2024 History of Present illness Narrative [facility] Outpatient Physical Therapy Daily Note Patient: Risa Warner : 1975 CSN #: [id number] Referring Physician: No ref. provider found Date: 04/23/2024 Diagnosis: M79.7 fibromyalgia; L shoulder pain, M25.512 Treatment Diagnosis: chronic low back pain; L shoulder pain Onset Date: 12/08/23 PT Insurance Information: Medical Gay Total # of Visits Approved: 24 Per [...] 15x; L upper trap and scalenes stretch [id number] Exercise 8: Corner pec stretch [id number] Exercise 9: UBE -4/4 Exercise 10: pulleys [...] ROM exercises to improve L shoulder mobility.-progressing Marine Diver Goals Time Frame for Marine Diver Goals : 4 weeks Longterm Goal 1: Pt will be safe and independent with her HEP Marine Diver Goal 2: Pt will increase lumbar AROM to WFL in order to reduce low back pain Longterm Goal 4: Pt will report 25% improvement in symptoms in order to improve quality of life Marine Diver Goal 5: Added 03/30: Patient to have improved L shoulder AROM equal to R shoulder ROM all planes with no increase in pain for improved functional mobility. long term care social worker goal 6: Added 03/30: Patient to have improved L shoulder strength >/=4/5 grossly all planes for improved stability. Minutes Tracking: Time In: 1315 Time Out: 1417 Minutes: 62 Phu Welsh Date: 04/23/2024 documented in this encounter [facility] 04-12-2024 History of Present illness Narrative [facility] Outpatient Physical Therapy Daily Note Patient: Risa Warner : 1975 CSN #: [id number] Referring Physician: No ref. provider found Date: 04/12/2024 Treatment Diagnosis: chronic low back pain; L shoulder pain Onset Date: 12/08/23 PT Insurance Information: Medical Gay Total # of Visits Approved: 24 Per [...] 15x; L upper trap and scalenes stretch [id number] Exercise 8: Corner pec stretch [id number] Exercise 9: Supine PPT/ Bridge/ supine clam [...] ROM exercises to improve L shoulder mobility.-progressing Longterm Goals Time Frame for Longterm Goals : 4 weeks Marine Diver Goal 1: Pt will be safe and independent with her HEP Longterm Goal 2: Pt will increase lumbar AROM to WFL in order to reduce low back pain Marine Diver Goal 3: Pt will increase BLE strength to >/=4/5 and core strength to Good in order to increase ambulation tolerance Longterm Goal 4: Pt will report 25% improvement in symptoms in order to improve quality of life Longterm Goal 5: Added 03/30: Patient to have improved L shoulder AROM equal to R shoulder ROM all planes with no increase in pain for improved functional mobility. alf goal 6: Added 03/30: Patient to have improved L shoulder strength >/=4/5 grossly all planes for improved stability. Minutes Tracking: Time In: 1300 Time Out: 1347 Minutes: 47 Génesis Hickman PTA Date: 04/12/2024 documented in this encounter [facility] 03-06-2024 Note This is a Telehealth [...] she follows with a GI specialist in [place]. Due to this has not tolerated several [...] tend to occur in the late evening last ironer time 11pm - 4 to 5 AM. Patient completed A1c at [facility] yesterday and notes result was 7.6% Diet: [...] repeat rule of 15's. -Continue to eat 2200-2224 calories per day. Best to consume calories divided into 3 meals per day. Avoid all sugared pop and other sweet drinks. Eat less sweet, white, and fast foods. -Continue to exercise as frequently as possible. Recommend at least 10,000 steps per day. When possible engage in moderate to intense aerobic activity with goals of increasing HR. -Record blood suga (more content not included)... [facility] 03-01-2024 History of Present illness Narrative [facility] Inpatient/Observation/Outpatient Rehabilitation Date: 03/01/2024 Patient Name: Risa Warner [x] Outpatient : 1975 02/24/24 Plan of Care/Recert ends [x] Pt cancelled due to: [x] Sick/ill Therapist/Receiving Barn Custodian will attempt to see this patient, at our earliest opportunity. Lary Rea, CARTON INSPECTOR Date: 03/01/2024 documented in this encounter [facility] 06-16-2023 Hospital Discharge instructions Vicki Finnegan PA-C - 06/16/2023 8:31 PM EDT Follow-up with your warp hanger Dr. Marie for your syncope. Also follow-up with your neurologist for your syncope. Make sure you are drinking plenty of fluids, getting up slowly and cautiously, and being careful of your position with coughing. Testing today is improved. The following attachments cannot be sent through Care Everywhere.Fainting (Dominican)documented in this encounter [facility] 06-14-2023 History of Present illness Narrative Discharge instructions, follow up appointment and medications reviewed with the patient and spouse and appropriate educational materials and side effects teaching were provided. Physician Progress Note PATIENT: RISA WARNER CSN #: [id number] : 1975 ADMIT DATE: 06/10/2023 8:42 PM [...] you! Chauncey Colunga, BSN,RN, CRCR RN Clinical Diver Assistant Options provided: -- Sepsis due to pneumonia [...] MD 06/14/2023 11:51 AM Physical Therapy Facility/Department: [facility] Daily Treatment Note NAME: Risa Warner : 1975 Date of Service: 06/14/2023 Discharge Recommendations: Continue to assess pending progress Patient Diagnosis(es): The primary encounter diagnosis was Recurrent syncope. A diagnosis of Pneumonia of both lower lobes due to infectious organism was also pertinent to this visit. Assessment Assessment: PT. able to ambulate [id number] with no AD, SBA for safety with [...] walking the rich. Asking about being discharged. Wood Experimental Mechanic at bedside for shift assessment. Patient sitting up in bed, respirations are even and unlabored while on room air. Vitals obtained and assessment completed, see flowsheet for details. Medications given, see MAR for details. Snacks and fresh water provided. pt denies further needs at this time. Call light in reach. Physical Therapy Facility/Department: [facility] Daily Treatment Note NAME: Risa Warner : 1975 Date of Service: 06/13/2023 Discharge Recommendations: Continue to assess pending progress Patient Diagnosis(es): The primary encounter diagnosis was Recurrent syncope. A diagnosis of Pneumonia of both lower lobes due to infectious organism was also pertinent to this visit. Assessment Assessment: Pt. able to ambulate with no AD, [id number] with one noted imbalance, able to self [...] 33 Génesis Hickman PTA Occupational Therapy Facility/Department: [facility] Daily Treatment Note NAME: Risa [...] Minutes 27 AGNES Mathias Physical Therapy Facility/Department: [facility] Daily Treatment Note NAME: Risa Warner : 1975 Date of Service: 06/13/2023 Discharge Recommendations: Continue to assess pending progress Patient Diagnosis(es): The primary encounter diagnosis was Recurrent syncope. A diagnosis of Pneumonia of both lower lobes due to infectious organism was also pertinent to this visit. Assessment Assessment: Pt. able to ambulate with no AD, [id number] with no nted OB and required one [...] muscle mass loss Fluid Accumulation: Mild Extremities Specialty Trimmer Strength: Not Performed Nutrition Assessment: Altered nutrition related labs r/t endocrine dysfunction, AEB glucose excursions on steroid with known diabetes. Improving A1C over time, down to 8.1. Asked provider to be on regular diet to choose for herself, which was granted. Weight consistently elevated/obese with mild fluctuations. 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 Nutrition Related Findings: obese, trace LLE edema. Wound Type: None Current Nutrition Intake & Therapies: Average Meal Intake: 76-100% Average Supplements Intake: None Ordered ADULT DIET; Regular Anthropometric Measures: Height: 5' 6 (167.6 cm) [place] Body Weight (IBW): 130 lbs (59 kg) [...] Used for Energy Requirements: Current Energy (kcal/day): 5330-2831 (15-18) Weight Used for Protein Requirements: [place] Protein (g/day): 71-83 (1.2-1.4) Method Used for [...] this time [address], [place] Contact: [phone] Progress Note SUBJECTIVE: Patient seen for f/u [...] Jardiance, Humulin R Nutrition status: obesity, non-morbid Seasonal Warehouse Associate consult initiated Hospital Prophylaxis: DVT: Lovenox Stress Ulcer: H2 Tana Disposition: Shared decision making: All test results, treatment options and disposition options were discussed with the patient today Social determinants of health that may impact management: none Code status: Full Code Disposition: Discharge plan is pending [facility] Advanced Care Planning documentation: [x] [...] the patient's medical record. [DOES NOT SATISFY [facility] PERFORMANCE] Shelley Champagne APRN - GE[place]ES , JOSSE, COARSE WIRE DRAWER-C Hospitalist Medicine 06/13/2023, 9:10 AM Associated attestation - Bubba Hudson MD - 06/13/2023 5:31 PM EDT Images from the original note were not included. [address] , [place], [place], [address] Attestation Patient: Risa Warner Date of Admission: 06/10/2023 8:42 PM Hospital Day # 3 Date of Evaluation: 06/13/2023 I personally evaluated and examined the patient eyny-ox-tlta in conjunction with the PA/COARSE WIRE DRAWER and agree with the management and dispostition of the patient. Please see the PA/COARSE WIRE DRAWER's note for full details. My lezama findings [...] with the plan as outlined in the COARSE WIRE DRAWER/PA's note Disposition: Discharge plan is pending Please note that this chart was generated using voice recognition [employer] dictation software. Although every effort was made to ensure the accuracy of this automated security trainer, some errors in security trainer may have occurred. Bubba Hudson MD 06/13/2023 [...] Value Date/Time PHART 7.293 07/02/2013 04:20 PM JLF0EEM 36.8 07/02/2013 04:20 PM PO2ART 70.6 07/02/2013 04:20 PM O9KEMWOW 92.6 07/02/2013 04:20 PM FDW8QPH 17.4 07/02/2013 04:20 PM PBEA NOT REPORTED 07/02/2013 04:20 PM NBEA 8.3 07/02/2013 04:20 PM VITALS Pulse: 89 Respirations: 18 BP: 132/73 SpO2: 95 % O2 Device: None (Room air) Temp: 97.7 F (36.5 C) SKIN COLOR [x] Normal [] Pale [] Dusky [] Cyanotic RESPIRATORY PATTERN [x] Normal [] Dyspnea [] Demetrio-Cyole [] Kussmaul [] Biots AMBULATORY [x] Yes [...] up in the bed watching TV when mortgage underwriter entered the room. Pt is A&O x4. Vitals and assessment as charted. Pt rated her pain a 6 out of 10 in her head. Tramadol 50mg PO given. Pt also requested cough medicine. Pt given Tessalon 100mg PO. Pt denies any further needs at this time. Call light within reach. Occupational Therapy Facility/Department: [facility] Daily Treatment Note NAME: Risa [...] from the original note were not included. [address], [place], [place], [address] Progress Note Date: 06/12/2023 Patient name: Risa [...] 03/24/23 09/20/23 JOSSE King CNP CPAP Machine [facility] by Does not apply route Historical Provider, [...] Gluc Sensor (FREESTYLE KENA 14 DAY SENSOR) [facility] 01/28/21 Historical Provider, DULoxetine (CYMBALTA) [...] times daily 02/28/19 Vivian Oseguera APRN - WEB SIZER aspirin 81 MG tablet Take 1 tablet [...] clubbing or edema DIAGNOSTICS: Laboratory Testing: See [facility] EMR for lab data Recent Results (from [...] this chart was generated using voice recognition [employer] dictation software. Although every effort was made to ensure the accuracy of this automated security trainer, some errors in security trainer may have occurred. Bubba Hudson MD 06/12/2023 [...] Pt has 2 insulin pens locked in channel lip stiffener insoles room. Only using the Humulin 500. Pt stated after being asked where the needles are there is already one on it mortgage underwriter asked you reuse your needles? Pt [...] pearls also given for cough. Told pt mortgage underwriter would update for any changes. Occupational Therapy Facility/Department: [facility] Occupational Therapy Initial Assessment Name: [...] Ambulation Assistance: Independent Transfer Assistance: Independent Active Concessions Manager: Yes Objective Safety Devices Type of [...] 15 Ivet Rinaldi OT Physical Therapy Facility/Department: [facility] Physical Therapy Initial Assessment Name: [...] time. Care ongoing. Orthostatic BPs completed by mortgage underwriter at this time as patient was c/o of multiple episodes of syncope and collapse at home. Patient arrived to [facility], room 315, at this time via wheelchair. Patient independently stood and ambulated to bed. Patient is alert and orientated and on 2L of nasal cannula O2. Patient does NOT normally wear O2 at home. Weight was obtained. documented in this encounter [facility] 12-30-2022 Note CONSULTATION CONSULTATION DATE: 12/30/2022 [...] our patients to inform us about any obsa-fcu-mbcmpbf medications or herbal remedies/nutritional supplements/alternative remedies. 2. [...] options with their primary care provider. [facility] 12-08-2022 History of Present illness Narrative Discharge [...] of surgery. documented in this encounter [facility] [employer] Phone: 12-08-2022 Hospital Discharge instructions Makayla Ji [...] this encounter [facility]: 11-30-2022 Note CONSULTATION CONSULTATION DATE: 11/30/2022 [...] after she undergoes the imaging studies. [facility] 11-23-2022 History of Present illness Narrative Patient arrived for home sleep study. Instructed on home sleep monitoring device use and benefits. documented in this encounter [facility] [employer] Work Phone: 10-21-2022 Note CONSULTATION CONSULTATION DATE: 10/21/2022 HISTORY OF PRESENT ILLNESS: This is a 47-year-old female who returns to the clinic status post thoracic RFA bilaterally of T9, T10 and T11, T12. This was completed on 09/14/2022 and has afforded her significant relief. On the 04 of October, patient had her spinal stimulator removed by Dr. Sherman in [place]. Overall, she is feeling increased relief, but [...] followed up in the clinic thereafter. [facility] 10-08-2022 History of Present illness Narrative Patient instructed on extended loom mechanic indications and use. Diary sent with patient. documented in this encounter [facility] [employer] Work Phone: 09-29-2022 History of Present illness Narrative Instructed on objectives and procedure of a tilt study documented in this encounter [facility] Work Phone: 09-07-2022 Evaluation note Encounter Date [...] would like to proceed with surgical intervention [employer] Other 12-01-2022 NoteCONSULTATION CONSULTATION DATE: 08/26/2022 HISTORY [...] appointment on 09/07/[address] Sherman in [place] to discuss removal of her nerve stimulator. She is diabetic with the most recent A1c being 7.8 as of yesterday. This is a great improvement for her. Medications include diclofenac 75 mg b.i.d., Requip 4 mg daily, duloxetine, gabapentin, baclofen and Hayes 5/325 b.i.d. The patient is inquiring about returning to tramadol, as she felt she got better pain relief with the tramadol over the Hayes. Current pain at rest today is 4/10; [...] post procedure and agrees to move forward.[facility] 08-06-2022 History of Present illness Narrative* Vineet [...] Matos PT, DPT documented in [facility] encounter[facility] Work Phone: 1(867) 729-647111-03-2022 NoteCONSULTATION CONSULTATION DATE: 07/29/2022 HISTORY OF PRESENT [...] have this removed by Dr. Sherman in [place] on 09/07/2022. She was last seen on 04/29/2022 which, at that time, she was just starting physical therapy as prescribed by her ornament maker hand. She feels, between ground and the pool [...] followed up in the office post procedure.[facility] [id number] History of Present illness Narrative* Mulu Mccray PTA - 07/19/2022 4:30 PM EDT [facility] Outpatient Physical Therapy Daily Note Patient: Risa Warner : 1975 CSN #: [id number] Referring Physician: Sam Hidalgo MD Date: 07/19/2022 Diagnosis: Other LBP, M54.59, pain in unspecified hip, M25.559 Treatment Diagnosis: Decreased activity endurance, trochanteric bursitis, chronic LBP PT Insurance Information: Medical Gay Total # of Visits Approved: 20 Per [...] exercise to improve endurance for ADLs. -met Marine Diver Goals Time Frame for Marine Diver Goals : 4 weeks Marine Diver Goal 1: Patient will be independent and compliant with a HEP -met Marine Diver Goal 2: Patient will improve bilateral hip ROM to 90* for ADLs Marine Diver Goal 3: Patient will improve bilateral LE strength to >/= 4/5 for ADLs. Marine Diver Goal 4: Patient will improve 5 time sit to stand test time to <30 seconds to indicate improved muscular power Marine Diver Goal 5: The patient will improve ambulation endurance to be able to ambulate >300' before requiring a seated rest break. Minutes Tracking: Time In: 1611 Time Out: 1705 Minutes: 54 Timed Code Treatment Minutes: 51 Minutes Mulu Shazia, CARTON INSPECTOR [id number] Date: 07/19/2022 documented [facility] Work Phone: 1(545) 236-340610-21-2022 History of Present illness Narrative* Vineet Matos PT - 07/16/2022 2:45 PM EDT [facility] Outpatient Physical Therapy Daily Note Patient: Risa Warner : 1975 CSN #: [id number] Referring Physician: Sam Hidalgo MD Date: 07/16/2022 Treatment Diagnosis: Decreased activity endurance, trochanteric bursitis, chronic LBP PT Insurance Information: Medical Gay Total # of Visits Approved: 20 Per [...] exercise to improve endurance for ADLs. -met Longterm Goals Time Frame for Marine Diver Goals : 4 weeks Marine Diver Goal 1: Patient will be independent and compliant with a HEP -met Marine Diver Goal 2: Patient will improve bilateral hip ROM to 90* for ADLs Longterm Goal 3: Patient will improve bilateral LE strength to >/= 4/5 for ADLs. Marine Diver Goal 4: Patient will improve 5 time sit to stand test time to <30 seconds to indicate improved muscular power Longterm Goal 5: The patient will improve ambulation endurance to be able to ambulate >300' before requiring a seated rest break. Minutes Tracking: Time In: 1445 Time Out: 1530 Minutes: 45 Timed Code Treatment Minutes: 43 Minutes Vineet Matos PT, DPT Date: 07/16/2022 documented in this encounter[facility] [employer] Work Phone: 1(544) 596-218110-17-2022 History of Present illness Narrative* Mulu Mccray, CARTON INSPECTOR - 07/12/2022 2:15 PM EDT [facility] Outpatient Physical Therapy Daily Note Patient: Risa Warner : 1975 CSN #: [id number] Referring Physician: Sam Hidalgo MD Date: 07/12/2022 Treatment Diagnosis: Decreased activity endurance, trochanteric bursitis, chronic LBP PT Insurance Information: Medical Gay Total # of Visits Approved: 20 Per [...] exercise to improve endurance for ADLs. -met Longterm Goals Time Frame for Marine Diver Goals : 4 weeks Marine Diver Goal 1: Patient will be independent and compliant with a HEP -met Longterm Goal 2: Patient will improve bilateral hip ROM to 90* for ADLs Longterm Goal 3: Patient will improve bilateral LE strength to >/= 4/5 for ADLs. Longterm Goal 4: Patient will improve 5 time sit to stand test time to <30 seconds to indicate improved muscular power Marine Diver Goal 5: The patient will improve ambulation endurance to be able to ambulate >300' before requiring a seated rest break. Minutes Tracking: Time In: 1411 Time Out: 1457 Minutes: 46 Timed Code Treatment Minutes: 44 Minutes [facility] Mulu Mccray, CARTON INSPECTOR [id number] Date: 07/12/2022 documented in this encounter[facility] [employer] Phone: 1(330) 326-348410-10-2022 History of Present illness Narrative* Karrie Beltran PTA - 07/05/2022 3:00 PM EDT [facility] Outpatient Physical Therapy Daily Note Patient: Risa Warner : 1975 CSN #: [id number] Referring Physician: Sam Hidalgo MD Date: 07/05/2022 Treatment Diagnosis: Decreased activity endurance, trochanteric bursitis, chronic LBP PT Insurance Information: Medical Gay Total # of Visits Approved: 20 Per [...] exercise to improve endurance for ADLs. -met Marine Diver Goals Time Frame for Marine Diver Goals : 4 weeks Longterm Goal 1: Patient will be independent and compliant with a HEP -met Marine Diver Goal 2: Patient will improve bilateral hip ROM to 90* for ADLs Longterm Goal 3: Patient will improve bilateral LE strength to >/= 4/5 for ADLs. Marine Diver Goal 4: Patient will improve 5 time sit to stand test time to <30 seconds to indicate improved muscular power Marine Diver Goal 5: The patient will improve ambulation endurance to be able to ambulate >300' before requiring a seated rest break. Minutes Tracking: Time In: 1500 Time Out: 1543 Minutes: 43 Karrie OzunaMILAGROS lopez Date: 07/05/2022 documented in this encounterB[facility] Phone: 1(609) 583-439510-07-2022 History of Present illness Narrative* Vineet Matos PT - 07/02/2022 10:00 AM EDT [facility] Outpatient Physical Therapy Daily Note Patient: Risa Warner : 1975 CSN #: [id number] Referring Physician: Sam Hidalgo MD Date: 07/02/2022 Treatment Diagnosis: Decreased activity endurance, trochanteric bursitis, chronic LBP PT Insurance Information: Medical Gay Total # of Visits Approved: 20 Per [...] exercise to improve endurance for ADLs. -met Marine Diver Goals Time Frame for Marine Diver Goals : 4 weeks Longterm Goal 1: Patient will be independent and compliant with a HEP Longterm Goal 2: Patient will improve bilateral hip ROM to 90* for ADLs Marine Diver Goal 3: Patient will improve bilateral LE strength to >/= 4/5 for ADLs. Marine Diver Goal 4: Patient will improve 5 time sit to stand test time to <30 seconds to indicate improved muscular power Marine Diver Goal 5: The patient will improve ambulation endurance to be able to ambulate >300' before requiring a seated rest break. Minutes Tracking: Time In: 1000 Time Out: 1045 Minutes: 45 Timed Code Treatment Minutes: 43 Minutes Vineet Matos PT, DPT Date: 07/02/2022 documented in this encounter[facility] [employer] Phone: 1(126) [phone] History of Present illness Narrative* Karrie Beltran PTA - 06/28/2022 3:00 PM EDT [facility] Outpatient Physical Therapy Daily Note Patient: Risa Warner : 1975 CSN #: [id number] Referring Physician: Sam Hidalgo MD Date: 06/28/2022 Treatment Diagnosis: Decreased activity endurance, trochanteric bursitis, chronic LBP PT Insurance Information: Medical Gay Total # of Visits Approved: 20 Per [...] exercise to improve endurance for ADLs. -met Marine Diver Goals Time Frame for Marine Diver Goals : 4 weeks Longterm Goal 1: Patient will be independent and compliant with a HEP Longterm Goal 2: Patient will improve bilateral hip ROM to 90* for ADLs Longterm Goal 3: Patient will improve bilateral LE strength to >/= 4/5 for ADLs. Longterm Goal 4: Patient will improve 5 time sit to stand test time to <30 seconds to indicate improved muscular power Marine Diver Goal 5: The patient will improve ambulation endurance to be able to ambulate >300' before requiring a seated rest break. Minutes Tracking: Time In: 1502 Time Out: 1542 Minutes: 40 Karrie Beltran, CARTON INSPECTOR Date: 06/28/2022 documented in this encounterB[facility] [employer] Work Phone: 1(195) [phone] History of Present illness Narrative* Karrie Beltran, CARTON INSPECTOR - 06/18/2022 1:30 PM EDT [facility] Outpatient Physical Therapy Daily Note Patient: Risa Warner : 1975 CSN #: [id number] Referring Physician: Sam Hidalgo MD Date: 06/18/2022 Treatment Diagnosis: Decreased activity endurance, trochanteric bursitis, chronic LBP PT Insurance Information: Medical Gay Total # of Visits Approved: 12 Per [...] exercise to improve endurance for ADLs. -met Marine Diver Goals Time Frame for alf goals : 4 weeks alf goal 1: Patient will be independent and compliant with a HEP long term care social worker goal 2: Patient will improve bilateral hip ROM to 90* for ADLs alf goal 3: Patient will improve bilateral LE strength to >/= 4/5 for ADLs. long term care social worker goal 4: Patient will improve 5 time sit to stand test time to <30 seconds to indicate improved muscular power alf goal 5: The patient will improve ambulation endurance to be able to ambulate >300' before requiring a seated rest break. Minutes Tracking: Time In: 1332 Time Out: 1406 Minutes: 34 Karrie Beltran PTA Date: 06/18/2022 documented in this encounter[facility] [employer] Phone: 1(832) 351-588409-19-2022 History of Present illness Narrative* Karrie Beltran PTA - 06/14/2022 3:00 PM EDT [facility] Outpatient Physical Therapy Daily Note Patient: Risa Warner : 1975 CSN #: [id number] Referring Physician: Sam Hidalgo MD Date: 06/14/2022 Treatment Diagnosis: Decreased activity endurance, trochanteric bursitis, chronic LBP PT Insurance Information: Medical Gay Total # of Visits Approved: 12 Per [...] exercise to improve endurance for ADLs. -met Longterm Goals Time Frame for long term care social worker goals : 4 weeks long term care social worker goal 1: Patient will be independent and compliant with a HEP long term care social worker goal 2: Patient will improve bilateral hip ROM to 90* for ADLs alf goal 3: Patient will improve bilateral LE strength to >/= 4/5 for ADLs. alf goal 4: Patient will improve 5 time sit to stand test time to <30 seconds to indicate improved muscular power alf goal 5: The patient will improve ambulation endurance to be able to ambulate >300' before requiring a seated rest break. Minutes Tracking: Time In: 1515 Time Out: 1545 Minutes: 30 Karrie Beltran PTA Date: 06/14/2022 [facility] Work Phone: [phone]) [phone] History of Present illness Narrative* Cristina Antonio - 06/02/2022 1:45 PM EDT [facility] Inpatient/Observation/Outpatient Rehabilitation Date: 06/02/2022 Patient Name: Risa Warner [] Inpatient Acute/Observation [] Outpatient : 1975 [] Pt no showed for scheduled appointment [] Pt refused/declined therapy at this time due to: [x] Pt cancelled due to: [] No Reason Given [] Sick/ill [] Other: Has 2 open wounds cx today and tuesday Therapist/Receiving Barn Custodian will attempt to see this patient, at our earliest opportunity. Cristina Antonio Date: 06/02/2022 documented in [facility] encounter[facility] [employer] Phone: 1([phone]) 362-564708-30-2022 History of Present illness Narrative* Nathan Garcia, PT - 05/25/2022 2:45 PM EDT [facility] Outpatient Physical Therapy Daily Note Patient: Risa Warner : 1975 CSN #: [id number] Referring Physician: Sam Hidalgo MD Date: 05/25/2022 [...] aquatic exercise to improve endurance for ADLs. Longterm Goals Time Frame for alf goals : 4 weeks alf goal 1: Patient will be independent and compliant with a HEP long term care social worker goal 2: Patient will improve bilateral hip ROM to 90* for ADLs long term care social worker goal 3: Patient will improve bilateral LE strength to >/= 4/5 for ADLs. long term care social worker goal 4: Patient will improve 5 time sit to stand test time to <30 seconds to indicate improved muscular power alf goal 5: The patient will improve ambulation endurance to be able to ambulate >300' before requiring a seated rest break. Minutes Tracking: Time In: 1446 Time Out: 1543 Minutes: 57 Timed Code Treatment Minutes: 54 Minutes Nathan Garcia PT Date: 05/25/2022 documented in this encounterB[facility] Work Phone: 1([phone]) 853-948408-04-2022 NoteCONSULTATION CONSULTATION DATE: 04/29/2022 HISTORY OF PRESENT [...] fatty liver disease. She recently saw her ornament maker hand and was prescribed physical therapy. The patient [...] indicated and patient agrees with this plan.[facility] [id number] NoteCONSULTATION CONSULTATION DATE: 04/01/2022 This is a [...] is also under the care of her ornament maker hand who telemarketing manager her fibromyalgia. She feels very flared [...] will discontinue the Tramadol, change it to Hayes 5/325 b.i.d. contingent upon the patient bringing [...] be followed up in the office post-procedure. [facility] Signed and Approved by: KEILY CLEMENTS . 04/08/2022 09:47:00[facility]07-07-2022 Note [facility] Vascular Lower Arterial Plethysmography Procedure Patient Name TIMMY Date of Study 03/31/2022 RISA Cooper Date of 1975 Gender Female Age 47 year(s) Race Room Number Corporate ID [id number] # Patient Acct [id number] # MR # [id number] Sales Product Manager Vicki Spicer RVT Interpreting Physician Ruddy Mallory [...] ! !!107 !0.8 ! ! +---------++--------+-----+ ++--------+-----+ +[id number] History of Present illness Narrative* Corrine Guerra RN - 03/03/2021 11:00 AM EDT Patient ordered stress echo test. The patient is unable to walk due to back and leg issues. Talked with ordering physician and changed to Lexiscan nuclear stress test. Patient verbalizes agreement. [facility] this [facility]: [phone]) 820-220804-27-2021 History of Present illness Narrative* Yamel Guadarrama [...] recovered for 2 hours. documented [facility] this [facility]: [phone]) 651-218604-27-2021 Hospital Discharge instructions* Instructions* Yamel Guadarrama RN [...] your doctor if you can take an moto-agg-hpztmfs medicine. If you think your pain medicine [...] Where can you learn more? Go to [email or web address] and sign in to your Personal Web Systems account. Enter P586 in the Search Health Information box to learn more about Lumbar Puncture: What to Expect at Home. If you do not have an account, please click on the Sign Up Now link. [id number] [employer]. Care instructions adapted under license by [facility]. This care instruction is for use with your licensed healthcare professional. If you have questions about amedical condition or this instruction, always ask your healthcare professional. [employer] disclaims any warranty or liability for your use of this information. Content Version: [id number]; Current as of: November 14, 2015 * Attachments The following attachments cannot be sent through Care Everywhere. * Myelogram (Dominican) documented in this [facility] [employer] Work Phone: 1(790) 692-143403-11-2021 NotePatient Outreach (COVAMN) RISA WARNER ([id number]) 1975 F Date Time Provider Department 12/04/20 MORGAN GREENBERG During your visit today, we recorded the following information about you: Allergies As of Date: 12/04/2020 Noted Allergy Reaction PENICILLINS 06/27/2009 2 - Rash Date Reviewed: 12/28/2019 Reviewed by: Johnathan Milner - Fully Assessed Order(s):SARS-COVID VACCINE 1ST DOSE APPT [[id number]] Order #: [id number] FUTURE Prescriptions as of 12/04/2020 Sig: TIZANIDINE [...] by JUAN FRANCISCO JUSTICE on 12/08/20[facility] Evaluation note* Diagnosis DDD (degenerative disc disease), lumbar Degeneration of lumbar or lumbosacral intervertebral disc documented in this encounter [employer] Phone: evaluation note* Diagnosis Renal stones Calculus of kidney Renal colic documented in this encounter [employer] Phone: evaluation note* Diagnosis Renal stones Calculus of kidney documented in this encounter [employer] Phone: evaluation note* Diagnosis Hepatomegaly documented in this encounter [employer] Phone: [email or web address] note* Diagnosis Essential hypertension Unspecified essential hypertension Chest discomfort Other chest pain Hyperlipidemia, unspecified hyperlipidemia type Tobacco abuse Tobacco use disorder documented in this encounter [employer] Phone: evaluation note* Diagnosis Abnormal LFTs Other abnormal blood chemistry documented in this encounter [employer] Phone: [email or web address] note* Diagnosis Other screening mammogram documented in this encounter [employer] Phone: [email or web address] note* Diagnosis Right upper quadrant abdominal pain Abdominal pain, right upper quadrant documented in this encounter [employer] Phone: evaluation note* Diagnosis Right upper quadrant abdominal pain Abdominal pain, right upper quadrant documented in this encounter [employer] Phone: evaluation note* Diagnosis Intermittent claudication (HCC) Peripheral vascular disease, unspecified documented in this encounter [employer] Phone: evaluation note* Diagnosis Colon cancer screening Special screening for malignant neoplasms, colon Fatty liver Other chronic nonalcoholic liver disease documented in this encounter [employer] Phone: evaluation note* Diagnosis Rib pain on left side- Primary Chest pain, unspecified Screening for colon cancer Special screening for malignant neoplasms, colon documented in this encounter [employer] Phone: evaluation note* Diagnosis Colon cancer screening Special screening for malignant neoplasms, colon Fatty liver Other chronic nonalcoholic liver disease Screening for colon cancer Special screening for malignant neoplasms, colon documented in this encounter [facility] [employer] Phone: [email or web address] note* Diagnosis Controlled type 2 diabetes mellitus with diabetic polyneuropathy, with long-term current use of insulin (HCC) Screening for colon cancer Special screening for malignant neoplasms, colon documented in this encounter [employer] Phone: evaluation noteNo assessment information [facility] Work Phone: Evaluation note* Diagnosis Postural syncope Screening for colon cancer Special screening for malignant neoplasms, colon documented in this encounter [facility] [employer] Phone: [email or web address] note* Diagnosis Syncope and collapse Preop cardiovascular exam Pre-operative cardiovascular examination Dizziness Dizziness and giddiness Primary hypertension Unspecified essential hypertension Mixed hyperlipidemia Tobacco abuse counseling Counseling on substance use and abuse Screening for colon cancer Special screening for malignant neoplasms, colon documented in this encounter [employer] Phone: [email or web address] noteNo [facility] [employer] [place] Other evaluation note* Diagnosis Lumbar radiculitis Thoracic or lumbosacral neuritis or radiculitis, unspecified Screening for colon cancer Special screening for malignant neoplasms, colon documented in this encounter [employer] Phone: evaluation note* Diagnosis Tired Other malaise and fatigue Fatigue, unspecified type LAYNE (obstructive sleep apnea) Obstructive sleep apnea (adult) (pediatric) Screening for colon cancer Special screening for malignant neoplasms, colon documented in this encounter [employer] Phone: [email or web address] note* Diagnosis Screening for colon cancer Special screening for malignant neoplasms, colon documented in this encounter [employer] Phone: evaluation note* Diagnosis Thoracic neuritis Thoracic or lumbosacral neuritis or radiculitis, unspecified documented in this encounter [employer] Phone: [email or web address] note* Diagnosis LAYNE (obstructive sleep apnea) Obstructive sleep apnea (adult) (pediatric) documented in this encounter [employer] Phone: evaluation note* Diagnosis Acute pneumonia- Primary [...] Syncope and collapse documented in this encounter [facility] [employer] note* Diagnosis Syncope, unspecified syncope type- Primary documented in this encounter [facility] [employer] note* Diagnosis Lower leg edema Edema documented in this encounter [employer] note* Diagnosis Recurrent pansinusitis documented in this encounter [facility] [employer] note* Diagnosis Recurrent pansinusitis Recurrent sinusitis Unspecified sinusitis (chronic) documented in this encounter [facility] [employer] note* Diagnosis Lisfranc dislocation, left, initial encounter- Primary Closed nondisplaced fracture of metatarsal bone of left foot, unspecified metatarsal, initial encounter documented in this encounter [facility] [employer] note* Diagnosis Lisfranc dislocation, left, initial encounter- Primary documented in this encounter [employer] [facility]* Diagnosis Charcot ankle, left- Primary [...] polyneuropathy, with long-term current use of insulin ([facility]) Tobacco abuse Tobacco use disorder Essential hypertension Unspecified essential hypertension Dyslipidemia Other and unspecified hyperlipidemia Type 2 diabetes mellitus with hyperglycemia ([facility]) Type II or unspecified type diabetes mellitus without mention of complication, not stated as uncontrolled Fatty liver Other chronic nonalcoholic liver disease [facility]* Diagnosis Closed dislocation of tarsal joint of left foot, initial encounter Charcot's joint of foot, left 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) Tobacco abuse Tobacco use disorder Left foot pain Pain in limb documented [facility] this encounter [facility]* Diagnosis Post-op pain- Primary Other acute postoperative pain Charcot ankle, left Diabetes (HCC) Post-op pain Other acute postoperative pain Multiple closed fractures of metatarsal bone of left foot Dislocation of tarsometatarsal joint of left foot Closed dislocation of tarsometatarsal (joint) Charcot's joint of foot, left documented [facility] general Narrative - Reported* Type Description Date Medical History Hypertension Medical History type II diabetes Medical History PMDD Medical History hyperlipidemia Surgical History (R) shoulder surgery Surgical History hysterectomy Surgical History bladder surgery Surgical History Pelvic Reconstruction Hospitalization History See Above [facility] Other Hospital Discharge instructions* Attachments The following attachments cannot be sent through Care Everywhere. * Chest Pain: Musculoskeletal (Dominican) [facility] Work Phone: Hospital Discharge instructions* Attachments The following attachments cannot be sent through Care Everywhere. * Pneumonia (Dominican) * Diabetes: Carb Counting and Eating Well: General Info (Dominican) [facility] Assessments Diagnosis Diabetes mellitus type 2 with [...] FoundDocuments on File Type Date Recorded Patient Trauma Doctor Expl anation Advance Directives and Livin g Will Advance Directives and Livin g Will 09/24/2013 3:29 PM Power of Molding Utility Worker Power of Molding Utility Worker 09/24/2013 3:29 PM Latest Code Status on File Code Status Date Activated Date Inactivated Comments Full Code 12/21/2017 5:28 AM 12/23/2017 6:35 PM Full Code 04/28/2016 7:55 PM 04/29/2016 5:42 PM Full Code 04/27/2016 8:29 AM 04/27/2016 1:04 PM Full Code 12/31/2015 1:59 PM 04/27/2016 8:29 AM Full Code 12/31/2015 11:18 AM 12/31/2015 1:59 PM Documents on File Type Date Recorded Patient Trauma Doctor Expl anation Advance Directives and Livin g Will Advance Directives and Livin g Will 09/24/2013 3:29 PM Power of Molding Utility Worker Power of Molding Utility Worker 09/24/2013 3:29 PM Latest Code Status on File Code Status Date Activated Date Inactivated Comments Full Code 12/21/2017 5:28 AM 12/23/2017 6:35 PM Full Code 04/28/2016 7:55 PM 04/29/2016 5:42 PM Full Code 04/27/2016 8:29 AM 04/27/2016 1:04 PM Full Code 12/31/2015 1:59 PM 04/27/2016 8:29 AM Full Code 12/31/2015 11:18 AM 12/31/2015 1:59 PM Documents on File Type Date Recorded Patient Trauma Doctor Expl anation ACP-Advance Directive ACP-Advance Directive 09/24/2013 3:29 PM ACP-Power of Molding Utility Worker ACP-Power of Molding Utility Worker 09/24/2013 3:29 PM Documents on File Type Date Recorded Patient Trauma Doctor Expl anation ACP-Advance Directive ACP-Advance Directive 09/24/2013 3:29 PM ACP-Power of Molding Utility Worker ACP-Power of Molding Utility Worker 09/24/2013 3:29 PM Documents on File Type Date Recorded Patient Trauma Doctor Expl anation ACP-Advance Directive ACP-Power of Molding Utility Worker ACP-Advance Directive 09/24/2013 3:29 PM ACP-Power of Molding Utility Worker 09/24/2013 3:29 PM Healthcare Agents on File Name Relationship Healthcare Agent Relationshi p Communication Yoel Warner Spouse Primary Decision Maker [phone] (Home) Documents on File Type Date Recorded Patient Trauma Doctor Expl anation ACP-Advance Directive ACP-Power of Molding Utility Worker ACP-Advance Directive 09/24/2013 3:29 PM ACP-Power of Molding Utility Worker 09/24/2013 3:29 PM Healthcare Agents on File [...] Documents on File Type Date Recorded Patient Trauma Doctor Expl anation ACP-Power of Molding Utility Worker ACP-Advance Directive 09/24/2013 3:29 PM ACP-Power of Molding Utility Worker 09/24/2013 3:29 PM Healthcare Agents on File Name Relationship Healthcare Agent Relationshi p Communication Yoel Warner Spouse Primary Decision Maker Documents on File Type Date Recorded Patient Trauma Doctor Expl anation ACP-Power of Molding Utility Worker ACP-Advance Directive 09/24/2013 3:29 PM ACP-Power of Molding Utility Worker 09/24/2013 3:29 PM Healthcare Agents on File Name Relationship Healthcare Agent Relationshi p Communication Yoel Warner Spouse Primary Decision Maker Healthcare Agents on File Name Relationship Healthcare Agent Relationshi p Communication Yoel Warner Spouse Primary Decision Maker Documents on File Type Date Recorded Patient Trauma Doctor Expl anation ACP-Advance Directive 09/24/2013 3:29 PM ACP-Power of Molding Utility Worker 09/24/2013 3:29 PM Healthcare Agents on File [...] Documents on File Type Date Recorded Patient Trauma Doctor Expl anation ACP-Advance Directive 09/24/2013 3:29 PM ACP-Power of Molding Utility Worker 09/24/2013 3:29 PM Healthcare Agents on File [...] Documents on File Type Date Recorded Patient Trauma Doctor Expl anation ACP-Advance Directive 09/24/2013 3:29 PM ACP-Power of Molding Utility Worker 09/24/2013 3:29 PM ACP-Advance Directive 06/13/2023 12:08 PM Health Care Power of Molding Utility Worker Latest Code Status on File Code Status [...] Documents on File Type Date Recorded Patient Trauma Doctor Expl anation ACP-Advance Directive 09/24/2013 3:29 PM ACP-Power of Molding Utility Worker 09/24/2013 3:29 PM ACP-Advance Directive 06/13/2023 12:08 PM Health Care Power of Molding Utility Worker Date Activated Date Inactivated Comments 06/11/2023 12:44 [...] Relationship Healthcare Agent Relationshi p Communication Yoel Wanrer Spouse Primary Decision Maker [phone] (Home) Reason for Referral Status Reason Specialty Diagnoses / Procedures Referre d By Contact Referred To Contact Open Radiology Diagnoses Abdominal pain, unspecified abdominal location Procedures CT ABDOMEN PELVIS W IV CONTRAST Additional Contrast? Oral Curtis Jean MD [address] [place] [address] Status Reason Specialty Diagnoses / Procedures Referred By Contact Referred To Contact Authorized Radiology Diagnoses Generalized abdominal pain Procedures NM GASTRIC EMPTYING HC NM GASTRIC EMPTYING STUDY Curtis Jean MD [address] [place] [address] Status Reason Specialty Diagnoses / Procedures Referre d By Contact Referred To Contact Open Radiology Diagnoses Generalized abdominal pain Procedures NM GASTRIC EMPTYING Vivian Osegurea, AUTOMOTIVE PROFESSIONAL - WEB SIZER [address] [place] [address] Status Reason Specialty Diagnoses / Procedures Referre d By Contact Referred To Contact Closed Radiology Diagnoses Traumatic injury of head, initial encounter Scalp tenderness S09.90XA (ICD-10-CM) - Traumatic injury of head, initial encounter R51.9 (ICD-10-CM) - Scalp tenderness Procedures CT HEAD WO CONTRAST Vivian Oseguera, AUTOMOTIVE PROFESSIONAL - WEB SIZER [address] [place] [address] Status Reason Specialty Diagnoses / Procedures Re ferred By Contact Referred To Contact Authorized Cardiology Diagnoses Essential hypertension Chest discomfort Hyperlipidemia, unspecified hyperlipidemia type Tobacco abuse Procedures Echo stress test HC NM SEST. REST STRESS MULT Nathan Ardon MD [address] [place] [address] [place] [address] Status Reason Specialty Diagnoses / Procedures Referre d By Contact Referred To Contact Closed Radiology Diagnoses Other screening mammogram Procedures ALEJANDRO MARISOL DIGITAL SCREEN BILATERAL Vivian Oseguera AUTOMOTIVE PROFESSIONAL - WEB SIZER [address] [place] [address] Status Reason Specialty Diagnoses / Procedures Referred By Contact Referred To Contact Not Required - Recondo Radiology Diagnoses Right upper quadrant abdominal pain Procedures US GALLBLADDER RUQ HC US ABDOMINAL LIMITED Flip Dodson AUTOMOTIVE PROFESSIONAL - WEB SIZER [address] [place] [address] Specialty Diagnoses / Procedures Referred By Contac t Referred To Contact Radiology Diagnoses Intermittent claudication (HCC) Procedures VL LOWER EXTREMITY ARTERIAL SEGMENTAL PRESSURES W PPG Vivian Oseguera AUTOMOTIVE PROFESSIONAL - WEB SIZER [address] [place] [address] Referral ID Status Reason Start Date Expiration Date Visits Re quested Visits Authorized [id number] Closed 03/24/2022 03/24/2023 1 1 Specialty Diagnoses / Procedures Referred By Contac t Referred To Contact Radiology Diagnoses Colon cancer screening Fatty liver Procedures US LIVER Tari Curtis MD [address] [place] [id number] Referral ID Status Reason Start Date Expiration Date Visits Re quested Visits Authorized [id number] Closed 07/26/2022 07/26/2023 1 1 Specialty Diagnoses / Procedures Referred By Contac t Referred To Contact Diagnoses Postural syncope R55 (ICD-10-CM) - Postural syncope Procedures Tilt Table Test Tilt Table Test CA CARDIOVASCULAR FUNCTION EVAL W/TILT TABLE W/MNTR 92397 - CA CARDIOVASCULAR FUNCTION EVAL W/TILT TABLE W/MNTR Vivian Oseguera AUTOMOTIVE PROFESSIONAL - WEB SIZER [address] [place] [address] Referral ID Status Reason Start Date Expiration Date Visits Re quested Visits Authorized [id number] Closed 09/23/2022 09/23/2023 1 1 Specialty Diagnoses / Procedures Referred By Contac t Referred To Contact Diagnoses Syncope and collapse Preop cardiovascular exam Dizziness Primary hypertension Mixed hyperlipidemia Tobacco abuse counseling Procedures Continuous cardiac monitoring, >2 up to 14 days Nathan Ardon MD [address] [place] [address] [place] [address] Referral ID Status Reason Start Date Expiration Date V isits Requested Visits Authorized [id number] Pending Review 10/08/2022 09/28/2023 1 1 Specialty Diagnoses / Procedures Referred By Contac t Referred To Contact Radiology Diagnoses Lumbar radiculitis Procedures MRI LUMBAR SPINE WO CONTRAST Keily Clements APRN - COARSE WIRE DRAWER [address] [place] [id number] Referral ID Status Reason Start Date Expiration Date Visits Re quested Visits Authorized [id number] Closed 10/25/2022 12/09/2022 1 1 Specialty Diagnoses / Procedures Referred By Contac t Referred To Contact Sleep Center Diagnoses Tired Fatigue, unspecified type LAYNE (obstructive sleep apnea) Procedures Home sleep study Nathan Ardon MD [address] [place] [address] [place] [address] Referral ID Status Reason Start Date Expiration Date Visits Re quested Visits Authorized [id number] Closed 11/09/2022 11/15/2023 1 1 Specialty Diagnoses / Procedures Referred By Contac t Referred To Contact Radiology Diagnoses Thoracic neuritis M54.14 (ICD-10-CM) - Thoracic neuritis Procedures MRI THORACIC SPINE WO CONTRAST CHG MRI SPINAL CANAL THORACIC W/O CONTRAST MATRL 94353 - CHG MRI SPINAL CANAL THORACIC W/O CONTRAST MATRL Barbara Mcghee MD [address] [facility], [address] [address] Referral ID Status Reason Start Date Expiration Date Visits Re quested Visits Authorized [id number] Closed 12/01/2022 01/15/2023 1 1 Specialty Diagnoses / Procedures Referred By Contac t Referred To Contact Sleep Center Diagnoses LAYNE (obstructive sleep apnea) Procedures Sleep study with PAP titration Nathan Ardon MD [address] [place] [address] [place] [address] Referral ID Status Reason Start Date Expiration Date Visits Re quested Visits Authorized [id number] Closed 01/02/2023 01/02/2024 1 1 Specialty Diagnoses / Procedures Referred By Fernandez t Referred To Contact Radiology Diagnoses Recurrent sinusitis Procedures CT SINUS WO CONTRAST Might, Vivian W, AUTOMOTIVE PROFESSIONAL - WEB SIZER [address] [place] [address] Referral ID Status Reason Start Date Expiration Date Visits Re quested Visits Authorized [id number] Closed 07/02/2024 08/16/2024 1 1 Specialty Diagnoses / Procedures Referred By Fernandez t Referred To Contact Radiology Diagnoses Recurrent pansinusitis Procedures CT SINUS W CONTRAST MightVivian, AUTOMOTIVE PROFESSIONAL - WEB SIZER [address] [place] [address] Referral ID Status Reason Start Date Expiration Date Visits Re quested Visits Authorized [id number] Closed 06/26/2024 06/25/2025 1 1 Specialty Diagnoses / Procedures Referred By Fernandez t Referred To Contact Radiology Diagnoses Closed dislocation of tarsal joint of left foot, initial encounter Charcot's joint of foot, left 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) Tobacco abuse Left foot pain Procedures CT FOOT LEFT WO CONTRAST Meera Mike, DPZarina [address] [place] [address] Referral ID Status Reason Start Date Expiration Date Visits Re quested Visits Authorized [id number] Closed 08/30/2024 10/14/2024 1 1 Summary Purpose [...] CT ABD/PEL W CONT Curtis Jean MD [address] [place] [address] [facility] Ct Scan [address] [place] [address] Status Reason Specialty Diagnoses / Procedures Referre d By Contact Referred To Contact Open Radiology Diagnoses Thyromegaly Procedures US HEAD NECK SOFT TISSUE THYROID US THYROID HCHG US,HEAD/NECK TISSUES,B-SCAN/REAL TIME Hever Olivera PA [address] [place] [address] Status Reason Specialty Diagnoses / Procedures Referred By Contact Referred To Contact Authorized Radiology Diagnoses Functional dyspepsia Procedures HC NM GASTRIC EMPTYING STUDY Curtis Jean MD [address] [place] [address] [place], [place] Status Reason Specialty Diagnoses / Procedures Referre d By Contact Referred To Contact Closed Radiology Diagnoses Generalized abdominal pain Procedures NM GASTRIC EMPTYING HC NM GASTRIC EMPTYING STUDY Curtis Jean MD [address] [place] [address] [place] Status Reason Specialty Diagnoses / Procedures Referre d By Contact Referred To Contact Closed Radiology Diagnoses Traumatic injury of head, initial encounter Scalp tenderness S09.90XA (ICD-10-CM) - Traumatic injury of head, initial encounter R51.9 (ICD-10-CM) - Scalp tenderness Procedures CT HEAD WO CONTRAST Vivian Oseguera W, AUTOMOTIVE PROFESSIONAL - WEB SIZER [address] [place] [address] Status Reason Specialty Diagnoses / Procedures Referre d By Contact Referred To Contact Closed Radiology Diagnoses DDD (degenerative disc disease), lumbar Procedures CT LUMBAR SPINE W CONTRAST FL MYELOGRAM LUMBOSACRAL S&I IR MYELOGRAM LUMBOSACRAL IR MYELOGRAM LUMBOSACRAL Corey Cleveland MD [address] [place] [address] Status Reason Specialty Diagnoses / Procedures Re ferred By Contact Referred To Contact Authorized Cardiology Diagnoses Essential hypertension Chest discomfort Hyperlipidemia, unspecified hyperlipidemia type Tobacco abuse Procedures Echo stress test HC NM SEST. REST STRESS MULT Nathan Ardon MD [address] [place] [address] [place] [address] Status Reason Specialty Diagnoses / Procedures Referred By Contact Referred To Contact Pending Review Stress Lab Diagnoses Essential (primary) hypertension Other chest pain Hyperlipidemia, unspecified Tobacco use Procedures CHG MYOCARDIAL SPECT MULTIPLE STUDIES Nathan Ardon MD [address] [place] [address] [place] [address] [facility] [address] [place] [address] Status Reason Specialty Diagnoses / Procedures Referre d By Contact Referred To Contact Closed Radiology Diagnoses Other screening mammogram Procedures ALEJANDRO MARISOL DIGITAL SCREEN BILATERAL Vivian Oseguera APRN - [employer] [address] [place] [address] Status Reason Specialty Diagnoses / Procedures Referred By Contact Referred To Contact Not Required - Recondo Radiology Diagnoses Right upper quadrant abdominal pain Procedures US GALLBLADDER RUQ HC US ABDOMINAL LIMITED Flip Dodson APRN - WE[employer] [address] [place] [address] Specialty Diagnoses / Procedures Referred By Contac t Referred To Contact Radiology Diagnoses Intermittent claudication (HCC) Procedures VL LOWER EXTREMITY ARTERIAL SEGMENTAL PRESSURES W PPG Vivian Oseguera AUTOMOTIVE PROFESSIONAL - WE[employer] [address] [place] [address] Referral ID Status Reason Start Date Expiration Date Visits Re quested Visits Authorized [id number] Closed 03/24/2022 03/24/2023 1 1 Reason Comments Rib Pain (injury) Left sided, ongoing since Tuesday, denies injury, hurts to take a deep breath Specialty Diagnoses / Procedures Referred By Contac t Referred To Contact Radiology Diagnoses Colon cancer screening Fatty liver Procedures US LIVER Tari uCrtis MD [address] [facility] [place] [address] [place] [address] Referral ID Status Reason Start Date Expiration Date Visits Re quested Visits Authorized [id number] Closed 07/26/2022 07/26/2023 1 1 Specialty Diagnoses / Procedures Referred By Contac t Referred To Contact Diagnoses Postural syncope R55 (ICD-10-CM) - Postural syncope Procedures Tilt Table Test Tilt Table Test CA CARDIOVASCULAR FUNCTION EVAL W/TILT TABLE W/MNTR 80911 - CA CARDIOVASCULAR FUNCTION EVAL W/TILT TABLE W/MNTR Vivian Oseguera, AUTOMOTIVE PROFESSIONAL - WE[employer] [address] [place] [address] Referral ID Status Reason Start Date Expiration Date Visits Re quested Visits Authorized [id number] Closed 09/23/2022 09/23/2023 1 1 Specialty Diagnoses / Procedures Referred By Contac t Referred To Contact Diagnoses Syncope and collapse Preop cardiovascular exam Dizziness Primary hypertension Mixed hyperlipidemia Tobacco abuse counseling Procedures Continuous cardiac monitoring, >2 up to 14 days Nathan Ardon MD [facility] [place] [address] Referral ID Status Reason Start Date Expiration Date V isits Requested Visits Authorized [id number] Pending Review 10/08/2022 09/28/2023 1 1 Specialty Diagnoses / Procedures Referred By Contac t Referred To Contact Radiology Diagnoses Lumbar radiculitis Procedures MRI LUMBAR SPINE WO CONTRAST Keily Clements, AUTOMOTIVE PROFESSIONAL - COARSE WIRE DRAWER [address] [place] [address] Referral ID Status Reason Start Date Expiration Date Visits Re quested Visits Authorized [id number] Closed 10/25/2022 12/09/2022 1 1 Specialty Diagnoses / Procedures Referred By Contac t Referred To Contact Sleep Center Diagnoses Tired Fatigue, unspecified type LAYNE (obstructive sleep apnea) Procedures Home sleep study Nathan Ardon MD [facility] [place] [address] Referral ID Status Reason Start Date Expiration Date Visits Re quested Visits Authorized [id number] Closed 11/09/2022 11/15/2023 1 1 Specialty Diagnoses / Procedures Referred By Contac t Referred To Contact Diagnoses Screening for colon cancer SCREENING Procedures CA COLON CA SCRN NOT HI RSK IND CA COLONOSCOPY FLX DX W/COLLJ SPEC WHEN PFRMD CA COLONOSCOPY W/BIOPSY SINGLE/MULTIPLE CA COLSC FLX W/RMVL OF TUMOR POLYP LESION SNARE TQ COLORECTAL CANCER SCREENING, NOT HIGH RISK Tari Curtis MD [address] [facility] [place] [address] [place] [address] [facility] [address] [place] [address] Referral ID Status Reason Start Date Expiration Date Visits Re quested Visits Authorized [id number] 1 1 Specialty Diagnoses / Procedures Referred By Contac t Referred To Contact Radiology Diagnoses Thoracic neuritis M54.14 (ICD-10-CM) - Thoracic neuritis Procedures MRI THORACIC SPINE WO CONTRAST CHG MRI SPINAL CANAL THORACIC W/O CONTRAST MATRL 77025 - CHG MRI SPINAL CANAL THORACIC W/O CONTRAST MATRL Barbara Mcghee MD [address] [place] [facility], [address] [place] [address] Referral ID Status Reason Start Date Expiration Date Visits Re quested Visits Authorized [id number] Closed 12/01/2022 01/15/2023 1 1 Specialty Diagnoses / Procedures Referred By Contac t Referred To Contact Sleep Center Diagnoses LAYNE (obstructive sleep apnea) Procedures Sleep study with PAP titration Nathan Ardon MD [address] [place] [address] [place] [address] Referral ID Status Reason Start Date Expiration Date Visits Re quested Visits Authorized [id number] Closed 01/02/2023 01/02/2024 1 1 Reason Comments [...] syncope Acute pneumonia Bubba Hudson MD [address] [place] [address] [facility] [address] [place] [address] Referral ID Status Reason Start Date Expiration Date Visits Re quested Visits Authorized [id number] 1 1 Reason Comments Loss of Consciousness Patient was recent ly discharged, patient today had syncope episode. Specialty Diagnoses / Procedures Referred By Fernandez lau Referred To Contact Radiology Diagnoses Recurrent pansinusitis Procedures CT SINUS W CONTRAST Might, Vivian W, AUTOMOTIVE PROFESSIONAL - [employer] [address] [place] [address] Referral ID Status Reason Start Date Expiration Date Visits Re quested Visits Authorized [id number] Closed 06/26/2024 06/25/2025 1 1 Reason Comments [...] tarsal joint of left foot [S93.315A] Procedures CA PRQ SKEL FIXJ METAR FX W/MANJ CA APPLICATION UNIPLANE EXTERNAL FIXATION SYSTEM FOOT CLOSED REDUCTION PINNING ANKLE EXTERNAL FIXATOR APPLICATION (ORTHOFIX) Meera Mike DPM [address] [place] [address] [facility] [address] [place] [address] Referral ID Status Reason Start Date Expiration Date Visits Re quested Visits Authorized [id number] 1 1 Specialty Diagnoses / Procedures Referred By Fernandez lau Referred To Contact Radiology Diagnoses Closed dislocation of tarsal joint of left foot, initial encounter Charcot's joint of foot, left 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) Tobacco abuse Left foot pain Procedures CT FOOT LEFT WO CONTRAST Meera Mike DPM [address] [place] [address] Referral ID Status Reason Start Date Expiration Date Visits Re quested Visits Authorized [id number] Closed 08/30/2024 10/14/2024 1 1 Specialty Diagnoses / Procedures Referred By Fernandez lau Referred To Contact Diagnoses Charcot ankle, left Diabetes (HCC) Charcot ankle, left [M14.672] Diabetes (HCC) [E11.9] Procedures CA REMOVAL EXTERNAL FIXATION SYSTEM UNDER ANES CA ARTHRODESIS SUBTALAR CA ARTHRD MIDTARSL/TARSOMETATARSAL MULT/TRANSVRS REMOVE EXTERNAL FIXATOR LEFT FOOT SUBTALAR JOINT FUSION; FUSION MIDFOOT MULTIPLE JOINTS LEFT FOOT SUBTALAR JOINT FUSION; FUSION MIDFOOT MULTIPLE JOINTS LEFT FOOT Meera Mike DPM [address] [address] [facility] [address] [place] [address] Referral ID Status Reason Start Date Expiration Date Visits Re quested Visits Authorized [id number] 1 1 INFORMATION SOURCE (unrecogn ized section and content) DATE CREATED AUTHOR 10/24/2021 [facility] DATE CREATED AUTHOR AUTHOR'S ORGANIZ ATION 11/05/2021 [facility] DATE CREATED AUTHOR AUTHOR'S ORGANIZ ATION 10/30/2022 [facility] DATE CREATED AUTHOR AUTHOR'S ORGANIZ ATION 02/09/2023 [facility] DATE CREATED AUTHOR AUTHOR'S ORGANIZ ATION 09/20/2024 [facility] DATE CREATED AUTHOR AUTHOR'S ORGANIZ ATION 02/01/2025 [facility] DATE CREATED AUTHOR AUTHOR'S ORGANIZ ATION 02/01/2025 [facility] DATE CREATED AUTHOR AUTHOR'S ORGANIZ ATION 02/21/2025 [facility] Care Teams (unrecognized sec tion and content) Patient Services Representative Relationship Specialty Start Date End Date Might, Vivian Combs APRN [employer] PCP - General Family Nurse Practitioner 05/10/18 Patient Services Representative Relationship Specialty Start Date End Date Might, Vivian Combs APRN - [employer] PCP - General Family Nurse Practitioner 05/10/18 Patient Services Representative Relationship Specialty Start Date End Date Might, Vivian Combs APRN - [employer] PCP - General Family Nurse Practitioner 05/10/18 Patient Services Representative Relationship Specialty Start Date End Date Might, Vivian Combs APRN - [employer] PCP - General Family Nurse Practitioner 05/10/18 Patient Services Representative Relationship Specialty Start Date End Date Might, Vivian Combs APRN - [employer] PCP - General Family Nurse Practitioner 05/10/18 Patient Services Representative Relationship Specialty Start Date End Date Might, Vivian Combs APRN - [employer] PCP - General Family Nurse Practitioner 05/10/18 Patient Services Representative Relationship Specialty Start Date End Date Might, Vivian Combs APRN - [employer] PCP - General Family Nurse Practitioner 05/10/18 Patient Services Representative Relationship Specialty Start Date End Date Might, Vivian Combs APRN - [employer] PCP - General Family Nurse Practitioner 05/10/18 Patient Services Representative Relationship Specialty Start Date End Date Might, Vivian Combs APRN - [employer] PCP - General Family Nurse Practitioner 05/10/18 Patient Services Representative Relationship Specialty Start Date End Date Might, Vivian Combs [facility] PCP - General Family Nurse Practitioner 05/10/18 Patient Services Representative Relationship Specialty Start Date End Date Might, Vivian Combs [facility] PCP - General Family Nurse Practitioner 05/10/18 Patient Services Representative Relationship Specialty Start Date End Date Might, Vivian Combs [facility] PCP - General Family Nurse Practitioner 05/10/18 Patient Services Representative Relationship Specialty Start Date End Date Might, Vivian Combs [facility] PCP - General Family Nurse Practitioner 05/10/18 Patient Services Representative Relationship Specialty Start Date End Date Might, Vivian Combs [facility] PCP - General Family Nurse Practitioner 05/10/18 Patient Services Representative Relationship Specialty Start Date End Date Might, Vivian Combs [facility] PCP - General Family Nurse Practitioner 05/10/18 Patient Services Representative Relationship Specialty Start Date End Date Might, Vivian Combs [facility] PCP - General Family Nurse Practitioner 05/10/18 Patient Services Representative Relationship Specialty Start Date End Date Might, Vivian Combs [facility] PCP - General Family Nurse Practitioner 05/10/18 Patient Services Representative Relationship Specialty Start Date End Date Might, Vivian Combs [facility] PCP - General Family Nurse Practitioner 05/10/18 Team Status: Inactive Member Role Status Dates NON STAFF Primary Care Provider Active Shiraz Sherman MD Attending Provider Active Team Status: Active Member Role Status Dates NON STAFF Primary Care Provider Active Patient Services Representative Relationship Specialty Start Date End Date Might, Vivian Combs [facility] PCP - General Family Nurse Practitioner 05/10/18 Patient Services Representative Relationship Specialty Start Date End Date Might, Vivian Combs APRN [facility] PCP - General Family Nurse Practitioner 05/10/18 Patient Services Representative Relationship Specialty Start Date End Date Might, Vivian Combs APRN [facility] PCP - General Family Nurse Practitioner 05/10/18 Patient Services Representative Relationship Specialty Start Date End Date Might, Vivian Combs APRN [facility] PCP - General Family Nurse Practitioner 05/10/18 Patient Services Representative Relationship Specialty Start Date End Date Might, Vivian Combs APRN [facility] PCP - General Family Nurse Practitioner 05/10/18 Patient Services Representative Relationship Specialty Start Date End Date Might, Vivian Combs APRN [facility] PCP - General Family Nurse Practitioner 05/10/18 Patient Services Representative Relationship Specialty Start Date End Date Might, Vivian Combs APRN [facility] PCP - General Family Nurse Practitioner 05/10/18 Patient Services Representative Relationship Specialty Start Date End Date Might, Vivian Combs APRN [facility] PCP - General Family Nurse Practitioner 05/10/18 Patient Services Representative Relationship Specialty Start Date End Date Might, Vivian Combs APRN [facility] PCP - General Family Nurse Practitioner 05/10/18 Patient Services Representative Relationship Specialty Start Date End Date Might, Vivian Combs APRN [facility] PCP - General Family Nurse Practitioner 05/10/18 Patient Services Representative Relationship Specialty Start Date End Date MightVivian APRN [facility] PCP - General Family Nurse Practitioner 05/10/18 Patient Services Representative Relationship Specialty Start Date End Date MightVivian APRN - [facility] PCP - General Family Nurse Practitioner 05/10/18 Patient Services Representative Relationship Specialty Start Date End Date MightVivian APRN [facility] PCP - General Family Nurse Practitioner 05/10/18 Patient Services Representative Relationship Specialty Start Date End Date MightVivian APRN [facility] PCP - General Family Nurse Practitioner 05/10/18 Patient Services Representative Relationship Specialty Start Date End Date MightVivian APRN [facility] PCP - General Family Nurse Practitioner 05/10/18 Patient Services Representative Relationship Specialty Start Date End Date Vivian Oseguera APRN - [facility] PCP - General Family Nurse Practitioner 05/10/18 Patient Services Representative Relationship Specialty Start Date End Date Vivian Oseguera APRN - [facility] PCP - General Family Nurse Practitioner 05/10/18 Patient Services Representative Relationship Specialty Start Date End Date Vivian Oseguera APRN [facility] PCP - General Family Nurse Practitioner 05/10/18 Patient Services Representative Relationship Specialty Start Date End Date Vivian Oseguera APRN [facility] PCP - General Family Nurse Practitioner 05/10/18 Patient Services Representative Relationship Specialty Start Date End Date MightVivian APRN - CNP PCP - General Family Nurse Practitioner 05/10/18 Patient Services Representative Relationship Specialty Start Date End Date MightVivian APRN - CNP PCP - General Family Nurse Practitioner 05/10/18 Patient Services Representative Relationship Specialty Start Date End Date MightVivian APRN - CNP PCP - General Family Nurse Practitioner 05/10/18 Patient Services Representative Relationship Specialty Start Date End Date MightVivian APRN - CNP PCP - General Family Nurse Practitioner 05/10/18 Patient Services Representative Relationship Specialty Start Date End Date MightVivian APRN - CNP PCP - General Family Nurse Practitioner 05/10/18 Patient Services Representative Relationship Specialty Start Date End Date MightVivian APRN - CNP PCP - General Family Nurse Practitioner 05/10/18 Patient Services Representative Relationship Specialty Start Date End Date MightVivian APRN - CNP PCP - General Family Nurse Practitioner 05/10/18 Patient Services Representative Relationship Specialty Start Date End Date Vivian Oseguera APRN - CNP PCP - General Family Nurse Practitioner 05/10/18 Patient Services Representative Relationship Specialty Start Date End Date MightVivian APRN - CNP PCP - General Family Nurse Practitioner 05/10/18 Patient Services Representative Relationship Specialty Start Date End Date CaneloVivian APRN - CNP PCP - General Family Nurse Practitioner 05/10/18 Patient Services Representative Relationship Specialty Start Date End Date Vivian Oseguera APRN [facility] PCP - General Family Nurse Practitioner 05/10/18 Patient Services Representative Relationship Specialty Start Date End Date Vivian Oseguera APRN [facility] PCP - General Family Nurse Practitioner 05/10/18 Patient Services Representative Relationship Specialty Start Date End Date Vivian Oseguera APRN - CNP PCP - General Family Nurse Practitioner 05/10/18 Patient Services Representative Relationship Specialty Start Date End Date Vivian Oseguera APRN [employer] PCP - General Family Nurse Practitioner 05/10/18 Patient Services Representative Relationship Specialty Start Date End Date Vivian Oseguera APRN [facility] PCP - General Family Nurse Practitioner [...] [place] RN)1427 (Stopped - Provider: Makayla Ji, RN) Scheduled Medication Order 06/12/2023 06/13/2023 06/14/2023 [...] Joanie Donovan RN)2104 (Given - Provider: Cheyenne Poon, [...] Until Discontinued 08 (Given - Provider: Makayla Leno RN) 0834 (Given - Provider: Joanie Donovan [...] Provider: Makayla Leon, BREANNA)2016 (Given - Provider: Rayma Nam, BREANNA) 08 (Given - Provider: Joanie [...] Mcintosh RN)2099 (Due - Provider: Good Hawley [facility]) cetirizine (ZYRTEC) tablet 10 mg 10 mg, [...] Lo RN) 0609 (Given - Provider: Stella oL RN) pregabalin (LYRICA) capsule 25 mg (CANCELED) [...] Duron RN)1750 (See Alternative - Provider: Jesse Duron RN)2200 (See Alternative - Provider: Stella Lo RN) 0209 (See Alternative - Provider: Stella Lo RN)0609 (See Alternative - Provider: Stella Lo RN)1125 (See Alternative - Provider: Annemarie Mcintosh [...] surgery) 0807 (Given - Provider: Johnathan Lara, AUTOMOTIVE PROFESSIONAL - LIFT TRUCK OPERATOR) ceFAZolin (ANCEF) 2000 mg in 20 mL IV syringe 2,000 mg, IntraVENous, EVERY 8 HOURS, First dose on Tue09/14/24 at 1600, Administer over 5 mins. 1656 (Given - Provider: Jesse Duron RN)2346 (Given - Provider: Hui Gayle RN) 0833 (Given - Provider: Agnely Martínez RN)1600 (Due) cetirizine (ZYRTEC) tablet 10 [...] of surgery) 0700 (Given - Provider: Mecca aWrd RN) insulin glargine (LANTUS) injection vial 15 [...] Until Discontinued 1120 (Given - Provid er: Angely Martínez RN) rOPINIRole (REQUIP) tablet 4 mg [...] at 0900, Labeling may look different. 25 [id number] Units. Please double check dosages. 1602 (Not Given - Provider: Jesse Duron RN - Reason: Patient/family refused) 0832 (Given - Provider: Angely Martínez RN) Continuous Medication Order 09/13/2024 09/14/2024 [...] for injection by adding 1 mL of fisher trap-supplied sterile diluent or sterile water for injection [...] BE BASED ON THE PRIMARY CLINICAL RECORDS. [facility]. provides no warranty or guarantee of the accuracy or completeness of information in this document.
[2025-02-25] MEDS: 0.9 % SODIUM CHLORIDE 500 ML IV (07:37)
[2025-02-25 07:41] VITALS: BP 132/73; PULSE 90; TEMP 36.4; O2SAT 96
[2025-02-25 08:16] LABS: Glucometer 154 mg/dL (74-106)
[2025-02-25] MEDS: BUPIVACAINE HCL 0.25% PF 25 MG/10 ML VIAL 4 ML INJ (08:55)
[2025-02-25] MEDS: LIDOCAINE HCL 2% 400 MG/20 ML MDV 16 ML INJ (08:55)
[2025-02-25] MEDS: METHYLPREDNISOLONE ACETATE 40 MG/ML VIAL 80 MG INJ (08:55)
[2025-02-25 08:57] VITALS: BP 101/46; PULSE 89; TEMP 36.2; O2SAT 97
[2025-02-25 09:01] VITALS: BP 89/54; PULSE 87; TEMP 36.2; O2SAT 96
--- NOTE | 2025-02-25 09:02 | P.ON_ITS ---
Date of procedure: 02/25/25 Pre-op diagnosis: Pain due to lumbar spondylosis without myelopathy Post-op diagnosis: same as pre-op Procedure: Procedure: Bilateral L4-5, l5-S1 radiofrequency ablation Medications: Bupivacaine 0.25% 6cc, lidocaine 2% 6cc, depomedrol 80mg The patient was seen and examined in the preoperative holding area.? The site was marked.? Written informed consent was obtained and placed on the chart.? The patient was brought to the medical procedure unit and placed in the prone position.? A timeout was completed verifying correct patient, procedure, positioning, and special requirements.? The skin overlying the target points, the designated medial branch, were prepped and draped in the usual sterile fashion.? The target point was achieved with a 20-gauge 15 cm with a 10 mm curved active tip radiofrequency cannula under direct fluoroscopic visualizati on.? The needle was inserted at level L4 on the right side. Needle tip position was confirmed with lateral fluoroscopic position.? Motor stimulation was carried out at 2 Hz up to 5 volts with the absence of extremity activity.? This was repeated at level L5, S1 on right side.?? Sensory stimulation was carried out.? Concordant pain was realized at the above- mentioned sites.? Then radiofrequency lesioning was carried out times 90 seconds at 80 degrees times 2 lesions at each level.? The radiofrequency probe was removed prior to cannula removal.? The above-mentioned injectate was placed in 1 mL increments.? The needle was removed. The same procedure, with the same steps, was then completed on the left side at the same levels. Insertion sites were covered.? The patient was taken to the postoperative recovery area and monitored for an appropriate length of time before being found suitable for discharge in the company of a responsible adult. Anesthesia: MAC Surgeon: Alexander Story Pathology: none sent Condition: stable Disposition: no change
== END 2025-02-25 09:23 | disposition home or self-care (01) ==
LOC: SURGOUT 07:19
PROVIDERS: Visit Provider Anesthesiology
DX: M54.50 Low back pain, unspecified (principal); M47.816 Spondylosis without myelopathy or radiculopathy, lumbar region; E11.8 Type 2 diabetes mellitus with unspecified complications; Z79.85 Long-term (current) use of injectable non-insulin antidiabetic drugs
CPT/HCPCS: 36415; 64635; 64636; 82948; J0665; J1010; J2704

== ENCOUNTER 2025-03-27 12:49 | Outpatient (OUT) | payer OTHER, SELFPAY ==
--- OUTSIDE RECORDS SUMMARY | 2013-08-31 03:36 | XMS_ITS | Encounter Summary ---
Author Organization [facility] Address [address] [place] [address] Care Team Providers Care Project Management Consultant Name Role Phone Leola Edward MD Primary Care Provider [phone] Encounter Details Date Type Department Care Team (Late st Contact Info) Description 08/31/2013 2:36 AM EST Hospital Encounter MTH PRE ADMIT [address] [place] [address] Evan Everett MD [address] [facility], [address] [place] [phone] Social History Tobacco Use Types Packs/Day Years Used Date Smoking Tobacco: Every Day Cigarettes 2 15 Smokeless Tobacco: Never Alcohol Use Standard Drinks/Week Comments No 0 (1 standard drink = 0.6 oz pur e alcohol) [facility] Utilities Answer Date Recorded In the past 12 months has [employer] electric, gas, oil, or water company threatened [...] place to sleep or slept in a jail (including now)? Patient declined 09/28/2023 Housing Stability Vital Sign Answer Elver e Recorded In the last 12 months, was t here a time when you were not able to pay the mortgage or rent on time? No 01/17/2025 In the past 12 months, how m any times have you moved where you were living? 0 01/17/2025 At any time in the past 12 m [facility], were you homeless or living in a jail (including now)? No 01/17/2025 Food Insecurity Answer [...] Care Team (Late st Contact Info) Description 04/01/2025 4:15 PM EDT Appointment [facility] Physical Therapy [address] [place] [address] Vineet Nam PT 04/17/2025 2:15 PM EDT Office Visit [facility] [address] [facility] [address] [place] [phone] Meera Lopez DPM [address] [facility] [address] [place] [address] 8 weeks 05/23/2025 2:00 PM EDT Office Visit [facility] Part of [address] [place] [phone] Nathan Ardon MD [address] [place] [address] [place] [address] 1 year follow up documented as of [...] FINAL Procedure: TRT Aug 31 2013 1:58PM [id number] CHEST PA AND LATERAL Reason for Exam: [...] by Nata Antony MD 08/31/2013 04:32 P TRVE/janes P P CC: MD Evan Saldivar M.D. IMPRESSION: SEE ABOVE. Transcribed by: PSC on Aug 31 2013 4:32P Read by: NATA ANTONY [id number] on Aug 31 2013 3:10P Electronically Signed by: DR. NATA ANTONY on: Aug 31 2013 4:32P Procedure Note Nata Antony MD - 08/31/2013 FINAL Procedure: TRT Aug 31 2013 1:58PM [id number] CHEST PA AND LATERAL Reason for Exam: [...] 31 2013 4:32P Read by: NATA ANTONY [id number] on Aug 31 2013 3:10P Electronically Signed by: DR. NATA ANTONY on: Aug 31 2013 4:32P Evan Everett MD [facility] DIAGNOSTIC IMAGING ORDER JEMIMA Edited Result - Final * (ABNORMAL) Basic Metabolic Panel (08/31/2013 1:32 PM EST) Glucose 315(H) 74 - 100 mg/dL 08/31/2013 5:46 PM EST [facility] BUN 14 6 - 20 mg/dL 08/31/2013 5:46 PM EST [facility] Creatinine 0.70 0.2 - 1.7 mg/dL 08/31/2013 5:46 PM EST [facility] BUN/Creatinine Ratio NOT REPORTED 9 - 20 [facility] Calcium 9.4 8.6 - 10.3 mg/dL 08/31/2013 5:46 PM EST [facility] Sodium 135(L) 136 - 146 mmol/L 08/31/2013 5:46 PM EST [facility] Potassium 4.9 3.5 - 5.1 mmol/L 08/31/2013 5:46 PM EST [facility] Chloride 100 98 - 110 mmol/L 08/31/2013 5:46 PM EST [facility] CO2 20 20 - 31 mmol/L 08/31/2013 5:46 PM EST [facility] Anion Gap NOT REPORTED 8 - 16 mmol/L [facility] GFR Non- >60 >60 mL/min 08/31/2013 [...] treatment by dialysis or transplant Performed at [address] [place] [address] BLOOD SPECIMEN / Unknown 08/31/2013 1:32 PM EST 08/31/2013 1:33 PM EST us Evan Everett MD CHEMISTRY ORDERABLES Final R esult [place] [id number] [phone] [facility] * (ABNORMAL) CBC auto differential (08/31/2013 1:32 PM EST) WBC 12.8(H) 3.5 - 11.0 k/uL 08/31/2013 2:15 PM EST [facility] RBC 4.50 4.0 - 5.2 m/uL 08/31/2013 2:15 PM EST [facility] Hemoglobin 14.0 12.0 - 16.0 g/dL 08/31/2013 2:15 PM EST [facility] Hematocrit 40.7 36 - 46 % 08/31/2013 2:15 PM EST [facility] MCV 90.3 80 - 100 fL 08/31/2013 2:15 PM EST [facility] MCH 31.2 26 - 34 pg 08/31/2013 2:15 PM EST [facility] MCHC 34.5 31 - 37 g/dL 08/31/2013 2:15 PM EST [facility] RDW 13.3 10.0 - 14.0 % 08/31/2013 2:15 PM EST [facility] Platelets 454(H) 140 - 450 k/uL 08/31/2013 2:15 PM EST [facility] MPV NOT REPORTED 6.0 - 12.0 fL [facility] Differential Type NOT REPORTED [facility] Seg Neutrophils 57 36 - 66 % 3 2:15 PM EST [facility] Lymphocytes 31 24 - 44 % 08/31/2013 2:15 PM EST [facility] Monocytes % 6 0 - 12 % 08/31/2013 2:15 PM EST [facility] Eosinophils % 4 0 - 8 % 08/31/2013 2:15 PM EST [facility] Basophils % 2 0 - 2 % 08/31/2013 2:15 PM EST [facility] Neutrophils Absolute 7.30 1.8 - 7.7 k/uL 08/31/2013 2:15 PM EST [facility] Lymphocytes Absolute 3.90 1.0 - 4.8 k/uL 08/31/2013 2:15 PM EST [facility] Monocytes Absolute 0.80 0.0 - 1.0 k/uL 08/31/2013 2:15 PM EST [facility] Eosinophils Absolute 0.60(H) 0.0 - 0.4 k/uL 08/31/2013 2:15 PM EST [facility] Basophils Absolute 0.20 0.0 - 0.2 k/uL 08/31/2013 2:15 PM EST [facility] Comment: Performed at [address] [place] [address] WBC Morphology NOT REPORTED [facility] RBC Morphology NOT REPORTED [facility] Platelet Estimate NOT REPORTED [facility] BLOOD SPECIMEN / Unknown 08/31/2013 1:32 PM EST 08/31/2013 1:33 PM EST us Evan Everett MD HEMATOLOGY ORDERABLES Final Result [facility] [address] [place] [id number], [facility] [phone] [facility] documented in this encounter Visit Diagnoses [...] documented as of this encounter Care Teams Project Management Consultant Relationship Specialty Start Date End Date Leola Edward MD [address] [place] [phone] PCP - General 06/16/12 01/02/18 documented as of this encounter
--- OUTSIDE RECORDS SUMMARY | 2025-03-27 12:51 | XMS_ITS | Clinical Summary ---
Author Organization [facility] Address [address] [place] [address] Care Team Providers Care Locum Tenens Name Role Phone Canelo Ryderdino Combs APRN - TECHNICAL ADVISOR Primary Care Provider Allergies Active Allergy Reactions Criticality Noted Date Comments Penicillins Rash Low 11/21/2012 Medications rOPINIRole (REQUIP) 4 MG tablet TAKE 1 TABLET DAILY 90 tablet 0 11/03/19 16 Active Additional Information Patient taking differently: NIGHTLY, Reported on 02/14/2025 Insulin Pen Needle 30G X 8 MM MISCIndications:D iabetes mellitus type 2 with complications, uncontrolled 1 each by Does not apply route 5 times daily 150 each 5 02/29/20 19 Active Continuous Blood Gluc Sensor (FREESTYLE LIANG 14 DAY SENSOR) [facility] 01/29/20 21 Active DULoxetine (CYMBALTA) 60 MG extended release capsule Take 1 capsule by mouth nightly 01/30/20 21 Active diclofenac (VOLTAREN) 75 MG EC tablet take 1 tablet by mouth twice a day with food 06/18/20 21 Active CPAP Machine MIS by Does not apply route Active fenofibrate (TRICOR) 145 MG tablet Take 1 tablet by mouth daily 08/23/20 23 Active lisinopril (PRINIVIL;ZESTRIL ) 10 MG tabletIndications :History of syncope,Essential hypertension,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 abuse,Mixed hyperlipidemia Take 1 tablet by mouth once daily 90 tablet 3 05/07/20 24 Active methocarbamol (ROBAXIN) 500 MG tablet Take 1 tablet by mouth 4 times daily Active omeprazole (PRILOSEC) 20 MG delayed release capsuleIndication s:Gastroesophagea l reflux disease without esophagitis Take 1 capsule by mouth Daily 90 capsule 3 06/13/20 24 Active JARDIANCE 10 MG tablet 06/12/20 24 Active pioglitazone (ACTOS) 30 MG tablet 06/12/20 24 Active furosemide (LASIX) 20 MG tabletIndications :History of syncope,Essential hypertension,Toba 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 abuse,Mixed hyperlipidemia,SO B (shortness of breath),Bilateral leg edema Take 1 tablet by mouth daily 90 tablet 3 07/05/20 24 Active albuterol sulfate HFA (PROVENTIL;VENTOL IN;PROAIR) 108 (90 Base) MCG/ACT inhalerIndication s:Acute bronchitis, unspecified organism INHALE 2 PUFFS BY MOUTH INTO THE LUNGS 4 TIMES DAILY NEEDED FOR WHEEZING 9 g 2 07/25/20 24 Active acetaminophen (TYLENOL) 500 MG tablet Take 1 tablet by mouth 3 times daily for 14 days 42 tablet 07/26/20 24 Active fluticasone (FLONASE) 50 MCG/ACT nasal sprayIndications: Seasonal allergic rhinitis due to pollen Use 2 spray(s) in each nostril once daily 16 g 5 09/28/19 25 Active levocetirizine (XYZAL) 5 MG tabletIndications :Seasonal allergic rhinitis due to pollen Take 1 tablet by mouth in the evening 31 tablet 5 09/28/19 25 Active atorvastatin (LIPITOR) 80 MG tablet Take 1 tablet by mouth daily 09/11/20 24 Active HUMULIN R U-500 KWIKPEN 500 UNIT/ML SOPN concentrated injection pen INJECT UP TO 500 UNITS SUBCUTANEOUSLY PER DAY. 09/02/20 24 Active pregabalin (LYRICA) 50 MG capsule Take 1 capsule by mouth 3 times daily. 09/07/20 24 Active aspirin 325 MG EC tablet 09/14/20 24 Active Naloxone HCl (NARCAN IJ) by Nasal route 07/04/20 24 Active metoprolol succinate (TOPROL XL) 25 MG extended release tablet Take 1 tablet by mouth every evening 90 tablet 3 11/13/19 25 Active metoprolol succinate (TOPROL XL) 50 MG extended release tabletIndications :History of syncope,Essential hypertension,Toba 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 abuse,Mixed hyperlipidemia,SO B (shortness of breath),Bilateral leg edema Take 1 tablet by mouth every morning (before breakfast) 90 tablet 3 11/13/19 25 Active HUMALOG KWIKPEN 200 UNIT/ML SOPN pen 11/08/19 25 Active montelukast (SINGULAIR) 10 MG tabletIndications :Seasonal allergic rhinitis due to pollen,Exacerbati on of asthma, unspecified asthma severity, unspecified whether persistent TAKE 1 TABLET BY MOUTH AT BEDTIME 90 tablet 3 02/12/20 25 Active traMADol (ULTRAM) 50 MG tabletIndications :Closed dislocation of tarsal joint of left foot, initial encounter,Charcot 's joint of foot, left,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 Intended supply: 30 days. Take lowest dose possible to manage pain Max Daily Amount: 200 mg 120 tablet 01/31/20 25 025 Active Problems Problem Noted Date Diagnosed Date [...] Encounters Date Type Department Care Team Description 03/18/2025 Telephone [facility] [address] [place] [address] [address] [place] [address] Meera Lopez DPM Referral 03/04/2025 Abstract [facility] [address] [place] [address] Ryder Lemos APRN - [place] 02/14/2025 3:00 PM EDT Office Visit [facility] [address] [facility] [address] [place] [address] Meera Lopez DPM Closed dislocation of tarsal joint of left foot, initial encounter (Primary Dx); Charcot's joint of foot, left; 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); Tobacco abuse; Type 2 diabetes mellitus with diabetic polyneuropathy, with long-term current use of insulin (HCC) 02/11/2025 Refill [facility] [address] [place] [address] Ryder Lemos APRN - TECHNICAL ADVISOR Medication Refill 02/06/2025 4:20 PM EDT Office Visit [facility] [address] [place] [address] Ryder Lemos SALES ADMINISTRATOR - TECHNICAL ADVISOR Acute bronchitis with COPD (HCC) (Primary Dx); Bullous myringitis of right ear; Encounter for screening mammogram for malignant neoplasm of breast 01/30/2025 Refill [facility] [place] [address] Meera Lopez, DPM Medication Refill 01/28[facility] [place] [address] Meera Lopez, DPM Other 01/25/2025 9:49 AM EDT - 01/25/2025 11:59 PM EDT Hospital Encounter [address] [address] Discharge Disposition: Home or Self Care 01/22/2025 Orders Only [address] [address] Rolan Sim 01/21/[address] [place] [address] Meera Lopez, DPM Medication Refill 01/17/2025 4:30 PM EDT Office Visit [facility] [address] [place] [address] Ryder Lemos SALES ADMINISTRATOR - TECHNICAL ADVISOR Acute diffuse otitis externa of both ears (Primary Dx); Chronic allergic rhinitis 01/17/2025 2:45 PM EDT - 01/17/2025 11:59 PM EDT Hospital Encounter [facility] Physical Therapy [address] [place] [address] [phone] Makayla Lozoya PTA Discharge Disposition: Home or Self Care 01/10/2025 1:45 PM EDT - 01/10/2025 11:59 PM EDT Hospital Encounter [facility] Physical Therapy [address] [place] [address] [phone] Hussein Ryan PTA Discharge Disposition: Home or Self Care 01/08/2025 2:30 PM EDT - 01/08/2025 11:59 PM EDT Hospital Encounter [facility] Physical Therapy [address] [place] [address] Hussein Ryan PTA Discharge Disposition: Home or Self Care 01/03/2025 3:55 PM EDT Ancillary Procedure [facility] [address] [facility] [address] [place] [address] 01/03/2025 3:30 PM EDT Office Visit [facility] [address] [facility] [address] [place] [address] Meera Lopez, PRANAV Charcot's joint of foot, left (Primary Dx); 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); Tobacco abuse; Type 2 diabetes mellitus with diabetic polyneuropathy, with long-term current use of insulin (HCC); Left foot pain; Closed dislocation of tarsal joint of left foot, initial encounter 01/02/2025 1:00 PM EDT - 01/02/2025 11:59 PM EDT Hospital Encounter [facility] Physical Therapy [address] [place] [address] Phu Mora Discharge Disposition: Home or Self Care 12/31/2024 12:45 PM EDT - 12/31/2024 11:59 PM EDT Hospital Encounter [facility] Physical Therapy [address] [place] [address] Alanna Chappell PTA Discharge Disposition: Home or Self Care 12/26/2024 1:30 PM EDT - 12/26/2024 11:59 PM EDT Hospital Encounter [facility] Physical Therapy [address] [place] [address] Phu Mora Discharge Disposition: Home or Self Care from Last 3 Months Immunizations Immunization Administration Dates Next Due Influenza A ([id number]) Vaccine PF IM 08/29/2009 Influenza Virus Vaccine [...] drink = 0.6 oz pur e alcohol) [facility] [employer] Answer Date Recorded In the past 12 months has [employer], gas, oil, or water flipClass threatened to shut off services in your [...] place to sleep or slept in a [place] facility (including now)? Patient declined 09/28/2023 Housing Stability [...] any time in the past 12 [facility], were you homeless or living in a [place] facility (including now)? No 01/17/2025 Food Insecurity Answer [...] Info) Description 04/01/2025 4:15 PM EDT Appointment [facility] Physical Therapy [address] [place] [address] Vineet Nam PT 04/17/2025 2:15 PM EDT Office Visit [facility] [address] [place] [phone] Meera Lopez DPZarina [address] [place] [address] 8 weeks 05/23/2025 2:00 PM EDT Office Visit [facility] Part of [address] [address] Nathan Ardon MD [address] [place] [phone] 1 year follow up Health Maintenance Due Date Last Done Comments FIT/FOBT: Average risk 2018 Fecal-DNA (Cologuard): Average risk 2018 Sigmoidoscopy/CT colonography 2018 Lung Cancer Screening &/or Counseling 2023 Breast cancer screen 05/15/2023 05/15/2021, 03/12/20 16 Diabetic Alb to Cr ratio (uACR) test 03/23/2025 03/23/2024, 08/03/2023, 09/21/2022, Additional history exists Lipids 03/23/2025 03/23/2024, 02/25, 08/03/2023, Additional history exists Flu vaccine (#1) 04/26/2025 07/25/2020, , 06/11/2019, Additional history exists COVID-19 Vaccine (1 - season) 2025 Postponed from 05/27/2024 (Unavailable) HIV [...] this topic Medical Devices Implanted Type Area Colorer Device Identifier Shelf Expiration Date Model / Serial / Lot Graft Bone Sub 5cc Pure Allosync - [id number] Implanted:Qty: 1 on 09/14/2024 by Sreekanth Weber DPM at [facility] Bone/Gra ft/Tissu e/Human/ Synth Left: Foot [employer]- 04/23/2029 [id number] / / [id number] Description:[id number] Graft Bone Sub 2.5cc Allosync Pure - [id number] Implanted:Qty: 1 on 09/14/2024 by Sreekanth Weber DPM at [facility] Bone/Gra ft/Tissu e/Human/ Synth Left: Foot [employer]- 05/21/2029 [id number] / / [id number] Description:[id number] Endcap Orth S Stl Hi Compr G-Beam Fus Beaming Sys - [id number] Implanted:Qty: 1 on 09/14/2024 by Meera Lopez DPM at [facility] Leg/Ankl e/Foot/T oe Left: Foot ORTHOFIX [facility] 07/14/2027 [id number] / / [id number] Screw Bne Fusion Sm 5.4x120 Mm Ss Strl G-Beam - [id number] Implanted:Qty: 1 on 09/14/2024 by Meera Lopez DPM at [facility] Screw/Pl ate/Nail /Jamal Left: Foot [employer]TH[employer] [facility]- [id number] / / [id number] Screw Bne Fusion Lg 7.4x70 Mm Ss Strl G-Beam - [id number] Implanted:Qty: 1 on 09/14/2024 by Urbano Merino DPM at [facility] Screw/Pl ate/Nail /Jamal Left: Foot [employer]- 12/26/2026 [id number] / / [id number] Screw Bne Fusion Sm 5.4x80 Mm Ss Strl G-Beam - [id number] Implanted:Qty: 1 on 09/14/2024 by Urbano Merino DPM at [facility] Screw/Pl ate/Nail /Jamal Left: Foot [employer]- 12/17/2027 [id number] / / [id number] Spine: Stimulator Spine:St imulator Pin Fix Fidelia Pt 2 End 5/64x9 In Smooth Ss Strl Steinmann - [id number] Implanted:Qty: 2 on 07/23/2024 by Meera Lopez DPM at [facility] Wire Left: Foot [employer] [facility] [id number] / / [id number] Wire Fix L6in Dia1.6mm St S Stl 3 Side Dbl Trcr Both End - [id number] Implanted:Qty: 1 on 07/23/2024 by Meera Lopez DPM at [facility] Wire Left: Foot [facility]AS[employer]ER [facility] [id number] 02/06/2029 [id number] / / [id number] Wire Fix L6in Dia1.6mm St S Stl 3 Side Dbl Trcr Both End - [id number] Implanted:Qty: 1 on 07/23/2024 at [facility] Wire Left: Foot [facility] [id number] 02/06/2029 [id number] S / / [id number] Pin Fix Fidelia Pt 1 End 332x9 In Thrd Ss Ns Steinmann - [id number] Implanted:Qty: 2 on 07/23/2024 by eMera Lopez DPM at [facility] Wire Left: Foot [employer] [facility]- [id number] / / Screw Bne Fusion Sm 5.4x120 Mm Ss Strl G-Beam - [id number] Implanted:Qty: 1 on 09/14/2024 by Meera Lopez DPM at [facility] Left: Foot [employer]-WD 12/21/2027 [id number] / / [id number] Procedures Procedure Name Priority Date/Time Associated Diagnosis [...] LFTs HM DIABETES EYE EXAM Routine 10/17/2019 MICROELECTRONICS TECHNICIAN CYTOLOGY Routine 06/02/2017 12:29 PM EDT from Last 3 Months or Most Recently Relevant to Health Maintenance Results * (ABNORMAL) Hemoglobin A1C (01/25/2025 9:50 AM EDT) Hemoglobin A1C 8.6(H) 4.0 - 6.0 % 01/25/2025 9:50 AM EDT [facility] Estimated Avg Glucose 200 mg/dL 01/25/2025 9:50 AM EDT [facility] Comment: The ADA and AACC recommend providing the estimated average glucose result to permit better patient understanding of their HBA1c result. 01/25/2025 9:50 AM EDT 01/25/2025 9:51 AM EDT Rolan Sim CHEMISTRY ORDERABLES Final Resul t Performing Organization Address City/[facility]/ZIP Co de Phone Number [facility] [address] [place] [address], [facility] [phone] [place] [address] [place] [id number], [facility] [phone] * XR FOOT LEFT (MIN 3 VIEWS) (01/03/2025 3:56 PM EDT) Narrative [facility] - 01/03/2025 3:56 PM EDT Radiology exam is complete. No Radiologist dictation. Please follow up with ordering provider. Meera Lopez DPM [facility] DIAGNOSTIC IMAGING ORD ERABLES Final Result Performing Organization Address City/[facility]/ZIP Co de Phone Number [facility] * XR ANKLE LEFT (MIN 3 VIEWS) (01/03/2025 3:56 PM EDT) Narrative [facility] - 01/03/2025 3:56 PM EDT Radiology exam is complete. No Radiologist dictation. Please follow up with ordering provider. Meera Lopez DPM [facility] DIAGNOSTIC IMAGING ORD ERABLES Final Result Performing Organization Address City/[facility]/ZIP Co de Phone Number [facility] * (ABNORMAL) Comprehensive Metabolic Panel w/ Reflex to MG (09/15/2024 8:21 AM EST) Sodium 137 136 - 145 mmol/L 09/15/2024 8:21 AM [facility] Potassium 4.7 3.7 - 5.3 mmol/L 09/15/2024 8:21 AM [facility] Chloride 102 98 - 107 mmol/L 09/15/2024 8:21 AM [facility] CO2 23 20 - 31 mmol/L 09/15/2024 8:21 AM [facility] Anion Gap 12 9 - 16 mmol/L 09/15/2024 8:21 AM [facility] Glucose 294(H) 74 - 99 mg/dL 09/15/2024 8:21 AM [facility] BUN 28(H) 6 - 20 mg/dL 09/15/2024 8:21 AM [facility] Creatinine 1.0 0.7 - 1.2 mg/dL 09/15/2024 8:21 AM [facility] Est, Glom Filt Rate 68 >60 mL/min/1.7 3m2 09/15/2024 8:21 AM [facility] Comment: These results are not intended [...] 8.6 - 10.4 mg/dL 09/15/2024 8:21 AM [facility] Total Protein 6.7 6.6 - 8.7 g/dL 09/15/2024 8:21 AM [facility] Albumin 4.1 3.5 - 5.2 g/dL 09/15/2024 8:21 AM [facility] Total Bilirubin <0.2 0.0 - 1.2 mg/dL 09/15/2024 8:21 AM EST [facility] Alkaline Phosphatase 54 35 - 104 U/L 09/15/2024 8:21 AM EST [facility] ALT 11 10 - 35 U/L 09/15/2024 8:21 AM EST [facility] AST 19 10 - 35 U/L 09/15/2024 8:21 AM EST [facility] Blood BLOOD SPECIMEN / Unknown 09/15/2024 8:21 AM EST 09/15/2024 8:22 AM EST Urbano Merino DPM CHEMISTRY ORDERABLES Final Result [facility] [address] [place] [address], [facility] [phone] * Microalbumin, Ur (03/23/2024 3:57 PM EDT) Albumin Urine <12 0 - 20 mg/L 03/23/2024 3:57 PM EDT [facility] Creat[facility], Ur 78.9 28.0 - 217.0 mg/dL 03/23/2024 3:57 PM EDT [facility] Microalb/Back Tufter. Ratio Can not be calculated 0.0 - 25.0 mcg/mg creat 03/23/2024 3:57 PM EDT [facility] Urine 03/23/2024 3:57 PM EDT 03/23/2024 4:27 PM EDT Ryder Lemos SALES ADMINISTRATOR - TECHNICAL ADVISOR URINE ORDERABLES Final Result [facility] [address] [place] [address], [facility] [phone] [facility] [address] [place] [address], [facility] [phone] * (ABNORMAL) Lipid Panel (03/23/2024 3:14 PM EDT) Cholesterol, Total 267(H) 0 - 199 mg/dL 03/23/2024 3:14 PM EDT [facility] Comment: Cholesterol Guidelines: <200 Desirable 200-240 Borderline >240 Undesirable HDL 16(L) >40 mg/dL 03/23/2024 3:14 PM EDT [facility] Comment: HDL Guidelines: <40 Undesirable 40-59 Borderline >59 Desirable LDL Cholesterol Can not be calculated 0 - 100 mg/dL 03/23/2024 3:14 PM EDT [facility] Comment: LDL Guidelines: <100 Desirable 100-129 Near to/above Desirable 130-159 Borderline >159 Undesirable Direct (measured) LDL and calculated LDL are not interchangeable tests. Chol/HDL Ratio 17.0 03/23/2024 3:14 PM EDT [facility] Triglycerides 2,042(H) <150 mg/dL 03/23/2024 3:14 PM EDT [facility] Comment: Triglyceride Guidelines: <150 Desirable 150-199 Borderline 200-499 High >499 Very high Based on AHA Guidelines for fasting triglyceride, June 2012. VLDL Can not be calculated mg/dL 03/23/2024 3:14 PM EDT [facility] Blood BLOOD SPECIMEN / Unknown 03/23/2024 3:14 PM EDT 03/23/2024 3:15 PM EDT Ryder Lemos SALES ADMINISTRATOR - TECHNICAL ADVISOR CHEMISTRY ORDERABLES Fi nal Result [facility] [address] [place] [address], [facility] [phone] [place] [address] [place] [id number] [phone] * Colonoscopy (12/08/2022 12:09 PM EDT) Narrative [...] to the patient regarding the results. The [employer] recommends annual mammograms for [...] suspicious microcalcification, or area of architectural distortion. Ryder Lemos SALES ADMINISTRATOR - TECHNICAL ADVISOR IMG MAMMOGRAPHY ORDERAB LES Final Result * Hepatitis C Antibody (03/11/2021 12:57 PM EDT) Hepatitis C Ab NONREACTIVE NONREACTIVE 03/11/20 12:57 PM EDT [facility] Comment: The hepatitis C procedure used in [...] EDT 03/11/2021 12:58 PM EDT Claudia Willett SALES ADMINISTRATOR - TECHNICAL ADVISOR IMMUNOLOGY ORDERAB LES Final Result [facility] [address] [place] [address], [facility] [phone] [facility] [address] [place] [address], [facility] [phone] * DIABETES EYE EXAM (10/17/2019) Historical Provider HEALTH MAINTENANCE Final Result * MICROELECTRONICS TECHNICIAN Cytology (06/02/2017 12:29 PM EDT) Cytology Report (NOTE) [id number] [facility]SULT[facility] PATHOLOGISTS [facility] EM[facility]ENC[facility]PARTMENT ANATOMIC PATHOLOGY [address] [place] [phone] GYNECOLOGIC CYTOLOGY REPORT Patient Name: VIRGIL JOSHI MR#: [id number] Specimen #[id number] Source: 1: Vaginal material, (ThinPrep vial, Imaging-assisted review) Clinical History Z01.419 Routine hospitality manager exam without abnormal findings Z12.4 Encounter for screening for malignant neoplasm of cervix High risk HPV DNA testing is requested if the diagnosis is abnormal LMP: 04/14/2016 INTERPRETATION Vaginal material, (ThinPrep vial, Imaging-assisted review): Specimen Adequacy: Satisfactory for evaluation. Descriptive Diagnosis: Negative for intraepithelial lesion or malignancy. Green Chainer: TARSHA Arriola(ASCP) Electronically Signed Out sz/06/08/2017 06/08/2017 12:00 AM EDT [facility] 06/02/2017 12:2 9 PM EDT 06/03/2017 12:29 PM EDT Dakota Ahn MD PATHOLOGY/CYTOLOGY ORDERABLES Final Result [facility] [address], [place] [address] [phone] [address] [phone] from Last 3 Months or Most Recently Relevant to Health Maintenance Insurance [employer] Advance Directives Documents on File Type Date Recorded Patient Handbag Designer Expl anation ACP-Advance Directive 09/24/2013 3:29 PM ACP-Power of Jet Handler 09/24/2013 3:29 PM ACP-Advance Directive 06/13/2023 12:08 PM Health Care Power of Jet Handler * Full Code (Latest Code Status on [...] Relationship Healthcare Agent Relationshi p Communication Yoel Joshi Spouse Primary Decision Maker Care Teams Locum Tenens Relationship Specialty Start Date End Date Ryder Lemos APRN - TECHNICAL ADVISOR PCP - General Family Nurse Practitioner 05/10/18
--- OUTSIDE RECORDS SUMMARY | 2025-03-27 12:51 | XMS_ITS | Clinical Summary ---
Author Organization [facility] Address [id number] [place] [address] Care Team Providers Care Livestock Showman Name Role Phone Unavailable Primary Care Provider [...]
--- OUTSIDE RECORDS SUMMARY | 2025-03-27 12:51 | XMS_ITS | Patient Health Record ---
Author Organization [facility] Address [address] [place] [address] Care Team Providers Care Billet Heater Operator Name Role Phone Might Ryder LUNA Primary Care Provider Eric Scott Unavailable [phone] Allergies Allergen (clinical drug ingredient) Drug/Non Drug [...] Pain, joint, shoulder, left (M25.512) Active confirmed Plan Of Treatment Pending Test Test Name Order Date MRI : Shoulder W/O Contrast Left - [id number] 01/11/2024 PT 2024 Insurance Providers Payer Name Payer Address Payer Phone Subscriber Number Group Number Insured Name Patient Relationship to Insured Coverage Start Date Coverage End Date [place] [address] [address] [place] [phone] [id number] VIRGIL WARNER Self - patient is the insured Medical (General) History Medical History History ICD Code Asthma/COPD Respiratory problems: Heart problems: Diabetes GI Problems: High Blood Pressure Depression Kidney trouble Sleep apnea CPAP Machine: Yes Do you use the CPAP machine? Yes Drug Allergies Surgical History Surgery Date(Month/Year) Spinal stimulator Right shoulder
--- OUTSIDE RECORDS SUMMARY | 2025-03-27 12:52 | XMS_ITS | Encounter Summary ---
Author Organization [facility] Address [address] [place] [address] Care Team Providers Care Automatic Die Cutting Machine Operator Name Role Phone Ryder Lemos MEDICAL CODING TECHNICIAN - REGIONAL OWNER OPERATOR TRUCK DRIVER Primary Care Provider Encounter Details Date Type Department Care Team (Latest Contact Info) Description 01/19/2021 Transcribe Orders [facility] [address] [place] [address] Corey Cleveland MD [address] [place] [phone] DDD (degenerative disc disease), lumbar (Primary Dx) [...] Info) Description 04/01/2025 4:15 PM EDT Appointment [facility] [address] [place] [phone] Vineet Nam PT 04/17/2025 2:15 PM EDT Office Visit [facility] [address] [facility] [address] [place] [address] Meera Lopez, DPM [address] [facility] [address] [place] [address] 8 weeks 05/23/2025 2:00 PM EDT Office Visit [facility] Part of [address] [phone] Nathan Ardon MD [address] [place] [phone] 1 year follow up documented as of [...] documented as of this encounter Care Teams Automatic Die Cutting Machine Operator Relationship Specialty Start Date End Date Ryder Lemos APRN - REGIONAL OWNER OPERATOR TRUCK DRIVER PCP - General Family Nurse Practitioner 05/10/18 documented as of this encounter
--- OUTSIDE RECORDS SUMMARY | 2025-03-27 12:52 | XMS_ITS | Encounter Summary ---
Author Organization Rigoberto Pranav [facility] Address [address] [place] [address] Care Team Providers Care Field Service Analyst Name Role Phone CaneloRyder Lauryn INDUSTRIAL MAINTENANCE INSTRUCTOR - BEATER MACHINE OPERATOR Primary Care Provider Encounter Details Date Type Department Care Team (Late Contact Info) Description 12/20/2017 Direct Admit Orders [facility] INT [facility] [address] [place] [address] Shelley Deluca APRN - BEATER MACHINE OPERATOR [address] [place] [address] Social History Tobacco Use Types Packs/Day Years [...] Info) Description 04/01/2025 4:15 PM EDT Appointment [facility] Physical [facility] [address] [place] [address] Vineet Nam PT 04/17/2025 2:15 PM EDT Office Visit [facility] Podiatry [address] [facility] [address] [place] [phone] Meera Lopez DPM [address] [facility] [address] [place] [address] 8 weeks 05/23/2025 2:00 PM EDT Office [facility] Part of [address] [address] Nathan Ardon MD [address] [place] [phone] 1 year follow up documented as [...] documented as of this encounter Care Teams Field Service Analyst Relationship Specialty Start Date End Date Ryder Lemos, INDUSTRIAL MAINTENANCE INSTRUCTOR - BEATER MACHINE OPERATOR PCP - General Family Nurse Practitioner 05/10/18 documented as of this encounter
--- OUTSIDE RECORDS SUMMARY | 2025-03-27 12:52 | XMS_ITS | Encounter Summary ---
Author Organization Rigoberto Sewellkrystal Savage [facility] Address [address] [place] [address] Care Team Providers Care Claims Account Specialist Name Role Phone Ryder Lemos METAL CASTER - GRAPHIC DESIGN TEACHER Primary Care Provider Reason for Visit * Reason Comments Medication Refill Encounter Details Date Type Department Care Team (Late st Contact Info) Description 12/12/2020 Refill [facility] Walk-In Care [address] [place] [address] Deats, Flip Srinivasan, METAL CASTER - GRAPHIC DESIGN TEACHER [address] [place] [address] Medication Refill Social History Tobacco Use Types [...] 4:15 PM EDT Appointment [facility] Physical Therapy [address] [place] [address] Vineet Nam PT 04/17/2025 2:15 PM EDT Office Visit [facility] Podiatry [address] [facility] [address] [place] [address] Meera Lopez DPZarina [address] [facility] [address] [place] [address] 8 weeks 05/23/2025 2:00 PM EDT Office Visit [facility] CARDIOLOGY Part of [address] [phone] Nathan Ardon MD [address] [place] [phone] 1 year follow up documented as [...] documented as of this encounter Care Teams Claims Account Specialist Relationship Specialty Start Date End Date Ryder Lemos APRN - GRAPHIC DESIGN TEACHER PCP - General Family Nurse Practitioner 05/10/18 documented as of this encounter
--- OUTSIDE RECORDS SUMMARY | 2025-03-27 12:52 | XMS_ITS | Encounter Summary ---
Author Organization Rigoberto Sewellkrystal Savage [facility] Address [address] [place] [address] Care Team Providers Care Vp Ad Products And Planning Name Role Phone CaneloRyder Lauryn BENÍTEZN - IMPACT HAMMER OPERATOR Primary Care Provider Reason for Visit * Reason Comments Medication Refill Encounter Details Date Type Department Care Team (Late st Contact Info) Description 09/23/2017 Refill [facility] CARDIOLOGY [address] [place] [phone] Nathan Ardon MD [address] [place] [phone] Medication Refill Social History Tobacco Use [...] Info) Description 04/01/2025 4:15 PM EDT Appointment [facility] [address] [place] [address] Vineet Nam, PT 04/17/2025 2:15 PM EDT Office Visit [facility] Podiatry [address] [facility] [address] [place] [phone] Meera Lopez DPM [address] [facility] [address] [place] [address] 8 weeks 05/23/2025 2:00 PM EDT Office Visit [facility] CARDIOLOGY Part of [address] [phone] Nathan Ardon MD [address] [place] [phone] 1 year follow up documented as [...] documented as of this encounter Care Teams Vp Ad Products And Planning Relationship Specialty Start Date End Date Ryder Lemos, TABLE TOP TILE SETTER - IMPACT HAMMER OPERATOR PCP - General Family Nurse Practitioner 05/10/18 documented as of this encounter
--- OUTSIDE RECORDS SUMMARY | 2025-03-27 12:52 | XMS_ITS | Encounter Summary ---
Author Organization Rigoberto Sewellkrystal [facility] Address [address] [place] [address] Care Team Providers Care Cloud Security Architect Name Role Phone Canelo Ryderdino Combs APRN - CHESS INSTRUCTOR Primary Care Provider Reason for Referral * Imaging (Routine) - Closed Specialty Diagnoses / Procedures Referred By Fernandez t Referred To Contact Radiology Diagnoses Thoracic neuritis M54.14 (ICD-10-CM) - Thoracic neuritis Procedures MRI THORACIC SPINE WO CONTRAST CHG MRI SPINAL CANAL THORACIC W/O CONTRAST MATRL [id number] - CHG MRI SPINAL CANAL THORACIC W/O CONTRAST MATRL Terry Brady MD [address] [address] Phone: tel: fax: Referral ID Status Reason Start Date Expiration Date Visits Re quested Visits Authorized [id number] Closed 12/01/2022 01/15/2023 1 1 Encounter Details Date Type Department Care Team (Latest Contact Info) Description 12/14/2022 Transcribe Orders [facility] [address] [place] [id number] Terry Brady MD [address] [place] [address] Thoracic neuritis (Primary Dx) [...] Info) Description 04/01/2025 4:15 PM EDT Appointment [facility] Physical Therapy [address] [place] [address] Vineet Nam PT 04/17/2025 2:15 PM EDT Office Visit [facility] Podiatry [address] [place] [phone] Meera Lopez DPM [address] [place] [address] [address] [place] [address] 8 weeks 05/23/2025 2:00 PM EDT Office Visit [facility] CARDIOLOGY Part of [facility] [address] [place] [address] Nathan Ardon MD [address] [facility] [place] [address] 1 year follow up documented as [...] documented as of this encounter Care Teams Cloud Security Architect Relationship Specialty Start Date End Date Ryder Lemos APRN - CHESS INSTRUCTOR PCP - General Family Nurse Practitioner 05/10/18 documented as of this encounter
--- OUTSIDE RECORDS SUMMARY | 2025-03-27 12:52 | XMS_ITS | Encounter Summary ---
Author Organization Rigoberto Sewellkrystal [facility] Address [address] [place] [address] Care Team Providers Care Radar Mechanic Name Role Phone CaneloRyder Lauryn BENÍTEZN - CARBONATION TESTER Primary Care Provider Reason for Visit * Reason Comments Medication Refill Encounter Details Date Type Department Care Team (Late st Contact Info) Description 12/01/2018 Refill [facility] CARDIOLOGY [address] [place] [phone] Nathan Ardon MD [address] [place] [phone] Medication Refill Social History Tobacco Use [...] Info) Description 04/01/2025 4:15 PM EDT Appointment [facility] Physical Therapy [address] [place] [address] Vineet Nam PT 04/17/2025 2:15 PM EDT Office Visit [facility] Podiatry [address] [facility] [address] [place] [phone] Meera Lopez DPM [address] [facility] [address] [place] [address] 8 weeks 05/23/2025 2:00 PM EDT Office Visit [facility] CARDIOLOGY Part of [address] [phone] Nathan Ardon MD [address] [place] [phone] 1 year follow up documented as [...] documented as of this encounter Care Teams Radar Mechanic Relationship Specialty Start Date End Date Ryder Lemos, TOUR BUS DRIVER - CARBONATION TESTER PCP - General Family Nurse Practitioner 05/10/18 documented as of this encounter
--- OUTSIDE RECORDS SUMMARY | 2025-03-27 12:52 | XMS_ITS | Encounter Summary ---
Author Organization Rigoberto Sewellkrystal Savage [facility] Address [address] [place] [address] Care Team Providers Care Reimbursement Analyst Name Role Phone CaneloRyder Lauryn BENÍTEZN - PATROL POLICE LIEUTENANT Primary Care Provider Reason for Visit * Reason Comments Medication Refill Encounter Details Date Type Department Care Team (Late st Contact Info) Description 02/19/2017 Refill [facility] CARDIOLOGY [address] [place] [phone] Nathan Ardon MD [address] [place] [phone] Medication Refill Social History Tobacco Use [...] Info) Description 04/01/2025 4:15 PM EDT Appointment [facility] Physical Therapy [address] [place] [address] Vineet Nam, PT 04/17/2025 2:15 PM EDT Office Visit [facility] Podiatry [address] [facility] [address] [place] [phone] Meera Lopez DPM [address] [facility] [address] [place] [address] 8 weeks 05/23/2025 2:00 PM EDT Office Visit [facility] CARDIOLOG[facility] Part of [address] [phone] Nathan Ardon MD [address] [place] [phone] 1 year follow up documented as [...] documented as of this encounter Care Teams Reimbursement Analyst Relationship Specialty Start Date End Date Ryder Lemos, MODEL MAKER FIBERGLASS - PATROL POLICE LIEUTENANT PCP - General Family Nurse Practitioner 05/10/18 documented as of this encounter
--- OUTSIDE RECORDS SUMMARY | 2025-03-27 12:52 | XMS_ITS | Encounter Summary ---
Author Organization Rigoberto Sewellkrystal Savage [facility] Address [address] [place] [address] Care Team Providers Care Rn Transitional Name Role Phone Canelo Ryderdino Combs APRN - HYDROMETER TESTER Primary Care Provider Reason for Visit * Reason Comments Medication Refill Encounter Details Date Type Department Care Team (Late st Contact Info) Description 12/24/2020 Refill [facility] CARDIOLOGY Part of [address] [phone] Nathan Ardon MD [address] [place] [phone] Medication Refill Social History Tobacco Use [...] PM EDT Appointment [facility] Physical Therapy [address] [place] [address] Vineet Nam PT 04/17/2025 2:15 PM EDT Office Visit [facility] Podiatry [address] [facility] [address] [place] [address] Meera Lopez DPM [address] [facility] [address] [place] [address] 8 weeks 05/23/2025 2:00 PM EDT Office Visit [facility] CARDIOLOGY Part of [address] [phone] Nathan Ardon MD [address] [place] [phone] 1 year follow up documented as [...] documented as of this encounter Care Teams Rn Transitional Relationship Specialty Start Date End Date Ryder Lemos APRN - HYDROMETER TESTER PCP - General Family Nurse Practitioner 05/10/18 documented as of this encounter
--- OUTSIDE RECORDS SUMMARY | 2025-03-27 12:52 | XMS_ITS | Encounter Summary ---
Author Organization Rigoberto block [facility] 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) Tobacco abuse Type 2 diabetes mellitus with diabetic polyneuropathy, with long-term current use of insulin (HCC) Meera Lopez DPM [facility] [address] [address] Phone: tel: fax: [facility] Physical Therapy [address] [place] [address] Phone: tel: Referral ID Status Reason Start Date Expiration Date Visits Requested Visits Authorized [id number] Authorized Specialty Services Required 03/19/2025 03/19/2026 1 1 Scheduling Instructions [facility] Rehabilitation and Therapy Please call within 48 hours to schedule your appointment. Comments The patient can be scheduled with any member of the group, including the provider with the first available appointments. Reason for Visit * Reason Onset Date Comments Referral 03/18/2025 Encounter Details Date Type Department Care Team (Late st Contact Info) Description 03/18/2025 Telephone [facility] [address] [facility] [address] [place] [address] Jesisca Meera Agueda, DPZarina [address] [facility] [address] [place], [place] [phone] Referral Social History Tobacco Use Types Packs/Day Years Used Date Smoking Tobacco: Every Day Cigarettes 2 15 Smokeless Tobacco: Never Alcohol Use Standard Drinks/Week Comments No 0 (1 standard drink = 0.6 oz pur e alcohol) [facility] Utilities Answer Date Recorded In [...] place to sleep or slept in a alf (including now)? Patient declined 09/28/2023 Housing Stability [...] any time in the past 12 m ont, were you homeless or living in a alf (including now)? No 01/17/2025 Food Insecurity Answer [...] Info) Description 04/01/2025 4:15 PM EDT [facility]ment [facility] [address] [place] [address] Vineet Nam PT 04/17/2025 2:15 PM EDT [facility] [address] [facility] [address] [place] [phone] Meera Lopez, DPZarina [address] [facility] [address] [place] [address] 8 weeks 05/23/2025 2:00 PM EDT Office Visit [facility] CARDIOLOGY Part of [address] [facility] 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) Tobacco abuse Type 2 diabetes mellitus with diabetic polyneuropathy, with long-term current use of insulin (HCC) Ordered: 03/19/2025 documented as of this encounter Visit Diagnoses Diagnosis Closed dislocation of tarsal joint of left foot, initial encounter- Primary Charcot's joint of foot, left 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
--- OUTSIDE RECORDS SUMMARY | 2025-03-27 12:52 | XMS_ITS | Encounter Summary ---
Author Organization Rigoberto Savage [facility] Address [address] [place] [address] Care Team Providers Care Flux Tube Attendant Name Role Phone Ryder Lemos APRN, CNP Primary Care Provider Reason for Visit * Reason Comments Medication Refill Encounter Details Date Type Department Care Team (Late st Contact Info) Description 03/10/2020 Refill [facility] [place] [address] [place] [address] Ryder Lemos APRN - CNP [address] [place] [address] Medication Refill Social History Tobacco [...] Encounters Date Type Department Care Team (Late Contact Info) Description 04/01/2025 4:15 PM EDT Appointment [facility] Physical Therapy [address] [place] [address] Vineet Nam PT 04/17/2025 2:15 PM EDT Office Visit [facility] Podiatry [address] [facility] [address] [place] [address] Meera Lopez DPM [address] [facility] [address] [place] [address] 8 weeks 05/23/2025 2:00 PM EDT Office Visit [facility] CARDIOLOGY Part of [address] [phone] Nathan Ardon MD [address] [place] [phone] 1 year follow up documented as of [...] documented as of this encounter Care Teams Flux Tube Attendant Relationship Specialty Start Date End Date Ryder Lemos, JUMP ROLL OPERATOR - SUPERVISOR REINFORCED STEEL PLACING PCP - General Family Nurse Practitioner 05/10/18 documented as of this encounter
--- OUTSIDE RECORDS SUMMARY | 2025-03-27 12:52 | XMS_ITS | Encounter Summary ---
Author Organization [facility] Address [address] [place], [place] [phone] Care Team Providers Care Rear Admiral Name Role Phone Juvenal Azevedo DPM Primary Care Provider Eric Darby Unavailable Unavailable Source Comments In the event this information is protected by the Federal Confidentiality of Alcohol and Drug AbusePatient Records regulations: The Federal rules restrict any use of the information to criminally investigate or prosecute any alcohol or drug abuse patient.[facility] Encounter Details Date Type Department Care Team (Late st Contact Info) Description 07/12/2019 Patient Msg Medical Records [address] [place], [place] [phone] Provider, [facility] Prescribed Patient Education Video(s) Social [...] on filedocumented in this encounter Care Teams Rear Admiral Relationship Specialty Start Date End Date Juvenal Azevedo DPM PCP - General 06/17/09 Eric Darby Gastroenterology 05/21/19 documented as of this encounter
--- OUTSIDE RECORDS SUMMARY | 2025-03-27 12:52 | XMS_ITS | Encounter Summary ---
Author Organization [facility] Address [address] [place] [address] Care Team Providers Care Embedder Name Role Phone Ryder Lemos APRN, CNP Primary Care Provider Reason for Referral * Imaging (Routine) - Closed Specialty Diagnoses / Procedures Referred By Fernandez lau Referred To Contact Radiology Diagnoses Lumbar radiculitis Procedures MRI LUMBAR SPINE WO CONTRAST Keily Clements APRN - NP [address] [place] [address] Phone: tel: fax: Referral ID Status Reason Start Date Expiration Date Visits Re quested Visits Authorized [id number] Closed 10/25/2022 12/09/2022 1 1 Encounter Details Date Type Department Care Team (Latest Contact Info) Description 11/02/2022 Transcribe Orders [facility] Pre Access [address] [place] [phone] Keily Clements APRN - NP [address] [place] [address] Lumbar radiculitis (Primary Dx) Social [...] 4:15 PM EDT Appointment [facility] Physical Therapy [address] [place] [address] Vineet Nam PT 04/17/2025 2:15 PM EDT Office Visit [facility] Podiatry [address] [place] [phone] Meera Lopez DPZarina [address] [place] [address] 8 weeks 05/23/2025 2:00 PM EDT Office Visit [facility] CARDIOLOGY Part of [address] [phone] Nathan Ardon MD [address] [place] [phone] 1 year follow up documented as of [...] canal stenosis or foraminal narrowing. RECOMMENDATIONS: Unavailable Keily Clements GRAPHITE GRINDER - COMPUTER OPERATOR IMG MRI ORDERABLES Final Result documented in [...] documented as of this encounter Care Teams Embedder Relationship Specialty Start Date End Date Canelo, Ryder Combs APRN - FIRE SUPERVISOR PCP - General Family Nurse Practitioner 05/10/18 documented as of this encounter
--- OUTSIDE RECORDS SUMMARY | 2025-03-27 12:52 | XMS_ITS | Clinical Summary ---
Author Organization [facility] Address [address] [place], [place] [address] Care Team Providers Care Cutter Grind Tool Technician Name Role Phone Juvenal Azevedo DPM Primary [...] 10 mg by mouth. 9 Active Insulin Conroy, Disposable, (INSUPEN) 30 gauge x 02/08 ndle [...] N ot on file 09/01/2020 Data from: https://www.neighborhoodatlas.medicine.[facility].edu/. Last address used for calculation Not [...] Lipid Screening 06/04/2024 06/04/2019, 08/21/2018 Influenza Vaccine (#1) 2025 9, 08/24/2018, 07/09/2015, Additional history exists Insurance [facility] [employer] PPO Care Teams Cutter Grind Tool Technician Relationship Specialty Start Date End Date Juvenal Azevedo DPM PCP - General 06/17/09 Eric Darby Gastroenterology 05/21/19
--- NOTE | 2025-03-27 13:22 | PM.CN ---
Consult Note: HPI Data of Consult Patient: known to practice within the last 3 years Requesting Physician: Suzi Longoria NP Primary Care Provider: Non-Staff Physician, Family Provider: LEESA Consult Narrative Reason for consult: low back pain Narrative: Risa Joshi a 50 year old female with chronic diffuse pain and low back pain presents for evaluation. pt has failed to benefit from > 6 weeks of PT and provider guided HEP for low back pain. since last visit she fx her foot and has undergone 2 surgeries, her podiatry/ortho team has been managing her medications. she continues to utilize tramadol 100mg BID PRN pain, diclofenac 75mg BID PRN pain, tylenol, pregabalin 50mg TID, ropinirole 4mg HS, robaxin 500mg TID PRN with mild relief without side effects. has not been evaluated recently by rheumatology. pt underwent repeat bilateral L4-5 L5-S1 facet RFA with 70% improvement in facet mediated low back pain per pt. cc:: CC: Suzi Longoria NP Review of Systems ROS Musculoskeletal Reports: back pain and joint pain PFSH [facility] Medical History S/P extracorporeal shock wave therapy �Z98.890 - Other specified postprocedural states (ICD-10) Ureteral stent displacement �T83.122A - Displacement of indwelling ureteral stent, initial encounter (ICD-10) Goiter �E04.9 - Nontoxic goiter, unspecified (ICD-10) RSD (reflex sympathetic dystrophy) �G90.50 - Complex regional pain syndrome I, unspecified (ICD-10) TMJ (dislocation of temporomandibular joint) �S03.00XA - Dislocation of jaw, unspecified side, initial encounter (ICD-10) Upper back pain �M54.9 - Dorsalgia, unspecified (ICD-10) Neck pain �M54.2 - Cervicalgia (ICD-10) Low back pain �M54.50 - Low back pain, unspecified (ICD-10) Fibromyalgia �M79.7 - Fibromyalgia (ICD-10) Neuropathy �G62.9 - Polyneuropathy, unspecified (ICD-10) Hyperthyroidism �E05.90 - Thyrotoxicosis, unspecified without thyrotoxic crisis or storm (ICD-10) Heart palpitations �R00.2 - Palpitations (ICD-10) Angina at rest �I20.8 - Other forms of angina pectoris (ICD-10) Kidney stone �N20.0 - Calculus of kidney (ICD-10) Asthma �J45.909 - Unspecified asthma, uncomplicated (ICD-10) Smoker �F17.200 - Nicotine dependence, unspecified, uncomplicated (ICD-10) Hypertension �I10 - Essential (primary) hypertension (ICD-10) High cholesterol �E78.00 - Pure hypercholesterolemia, unspecified (ICD-10) Diabetes �E11.9 - Type 2 diabetes mellitus without complications (ICD-10) Surgical History S/P insertion of spinal cord stimulator �Z96.89 - Presence of other specified functional implants (ICD-10) H/O: hysterectomy �Z90.710 - Acquired absence of both cervix and uterus (ICD-10) S/P shoulder surgery �Z98.890 - Other specified postprocedural states (ICD-10) Meds Home Medications and Allergies Home Medications �Medication �Instructions �Recorded �Confirmed �Type aspirin 81 mg tablet,delayed 81 mg PO DAILY 02/25/23 02/25/25 History release (Adult Low Dose Aspirin) atorvastatin 80 mg tablet (Lipitor) 80 mg PO DAILY 02/25/23 02/25/25 History fenofibrate micronized PO QDAY 02/25/23 History fluticasone propionate 50 1 spray intranasal DAILY 02/25/23 02/25/25 History mcg/actuation nasal spray,suspension (Flonase Allergy Relief) furosemide 20 mg tablet (Lasix) 20 mg PO DAILY 02/25/23 02/25/25 History insulin lispro 200 unit/mL (3 mL) 60 unit subcut TID 02/25/23 02/25/25 History subcutaneous pen (Humalog KwikPen U-200 Insulin) levocetirizine 5 mg tablet (Xyzal) 5 mg PO DAILY 02/25/23 02/25/25 History lisinopril 10 mg tablet 10 mg PO DAILY 02/25/23 02/25/25 History metoprolol succinate 50 mg PO QDAY 02/25/23 02/25/25 History montelukast 10 mg tablet 10 mg PO QPM 02/25/23 02/25/25 History (Singulair) albuterol sulfate 90 mcg/actuation 2 inh inhalation TID PRN shortness 05/31/23 02/25/25 History aerosol inhaler of breath or wheezing insulin regular hum U-500 conc 500 120 unit subcut BID 07/12/23 02/25/25 History unit/mL(3 mL) subcut pen (Humulin R U-500 (Conc) Insulin Kwikpen) tramadol 50 mg tablet 100 mg (2 x 50 mg) PO BID PRN pain 01/04/24 02/25/25 Rx #120 tabs duloxetine 60 mg capsule,delayed 60 mg PO DAILY #30 caps 07/04/24 02/25/25 Rx release naloxone 4 mg/actuation nasal 4 mg intranasal Q2M PRN opioid 07/04/24 02/25/25 Rx spray (Narcan) overdose #2 ea pregabalin 50 mg capsule (Lyrica) 50 mg PO TID #90 caps 09/04/24 02/25/25 Rx methocarbamol 500 mg tablet See Rx Instructions .Route 10/17/24 02/25/25 Rx .COMPLEX PRN spasms #180 tabs ropinirole 4 mg tablet 4 mg PO DAILY #30 tabs 12/06/24 02/25/25 Rx diclofenac sodium 75 mg 75 mg PO BID PRN pain #60 tabs 02/13/25 02/25/25 Rx tablet,delayed release ropinirole 4 mg tablet 4 mg PO HS #30 tabs 03/06/25 Rx tramadol 50 mg tablet See Rx Instructions .Route 03/06/25 Rx .COMPLEX PRN pain #120 tabs pregabalin 75 mg capsule (Lyrica) 75 mg PO TID #90 caps 03/27/25 Rx Allergies Allergy/AdvReac Type Severity Reaction Status Date / Time Penicillins Allergy Unknown Unknown Verified 02/25/25 07:38 Exam Constitutional Documenting provider has reviewed patient's vital signs: yes Common normals: no apparent distress, oriented x3, healthy appearing, alert and well nourished General appearance: cooperative HENMT Common normals: normocephalic, hearing grossly normal bilaterally and moist oral mucous membranes Head and scalp: normocephalic Eye Common normals: PERRL Pupil: PERRL Neck & C-Spine Common normals: full ROM General: normal visual inspection Chest Common normals: inspection of chest normal Respiratory Common normals: normal respiratory effort, no retractions and no use of accessory muscles Back & Pelvis Lumbar spine/lower back: ROM limited, pain with ROM, lumbar spinal tenderness Lumbar spinal tenderness location: L3, L4 and L5 and straight leg raise positive right Sacroiliac joints: SI joint(s) abnormal Other: strength 5/5 in BLE positive facet loading tenderness noted T10-L2 Extremity Other: left knee brace and left foot brace Neuro Common normals: oriented x3 Sensorium/orientation: alert Psych Common normals: mental status grossly normal, thought process normal, cooperative, affect normal, speech normal and activity/motor behavior normal Speech: normal speech Thought process: normal thought process Results Additional Findings Additional findings: If on a controlled substance or opioids, I have checked an [place] report on this patient and there are no aberrancies noted in the prescribing history.��If on a controlled substance or opioid a drug screen was completed and reviewed within the last year, and if there has not been a drug screen completed we ordered one today to monitor higher risk, state monitored pain medication use. As part of providing excellent, safe, comprehensive care, the following was completed at our patient's visit: 1. A medication reconciliation and review to ensure accurate knowledge of current/active medications, including asking our patients to inform us about any [id number] medications or herbal remedies/nutritional supplements/alternative remedies. 2. A review to specifically ensure our patients have had annual screening for screening for depression, screening for tobacco use, and screening for unhealthy alcohol use. For concerning screenings had a discussion with the patient, provided patient education, and recommended follow-up with primary care provider when appropriate. If patient noted with a risk of falling, they received education on strength, gait, and balance training to prevent future risk of falling. Portions of this note may have been carried over from the previous visit and updated as appropriate. Please note this office utilizes paper charting in addition to the electronic medical record. A list of current medications, vitals, and PMH is available there as the clinical staff outside of myself do not have access to [employer] charting during the clinic day operations. As part of providing quality comprehensive care the current medications, vitals, and PMH were reviewed in the paper chart. Assessment and Plan Assessment and Plan (1) Lumbar spondylosis: Assessment and Plan: 30-24 bilateral L4-5 L5-S1 MBB with >80% improvement in pain and functional ability while anesthetized 9-16-24 bilateral L4-5 L5-S1 MBB with >80% improvement in pain and functional ability while anesthetized 07-10-24 right L4-5 L5-S1 facet RFA >50% improvement in pain and functional ability for at least 6 months, procedure completed with MAC sedation 02-25-25 bilateral L4-5 L5-S1 facet RFA >50% improvement in facet mediated low back pain (2) Lumbar radiculopathy: (3) Chronic prescription opiate use: (4) Fibromyalgia: (5) Neuropathy: (6) RSD (reflex sympathetic dystrophy): (7) Lumbar stenosis with neurogenic claudication: Plan update lumbar MRI without contrast to assess low back pain > 6 months unresponsive to >6weeks of HEP, heat, ice, tylenol, NSAIDs increase pregabalin 75mg TID, risks vs benefits reviewed continue HEP as tolerated continue tramadol 100mg BID PRN moderate to severe pain, diclofenac 75mg BID PRN pain, duloxetine 60mg daily, robaxin 500-1000mg tid prn pain/spasms f/u to review MRI
== END 2025-03-27 12:50 | disposition home or self-care (01) ==
LOC: PM 12:49
PROVIDERS: Visit Provider Nurse Practitioner
DX: M47.816 Spondylosis without myelopathy or radiculopathy, lumbar region (principal); M54.16 Radiculopathy, lumbar region; Z79.891 Long term (current) use of opiate analgesic; M79.7 Fibromyalgia; G62.9 Polyneuropathy, unspecified; G90.50 Complex regional pain syndrome I, unspecified; M48.062 Spinal stenosis, lumbar region with neurogenic claudication
CPT/HCPCS: G0463

== ENCOUNTER 2025-05-01 14:12 | Outpatient (OUT) | payer OTHER, SELFPAY ==
--- NOTE | 2025-05-01 14:47 | PM.CN ---
Consult Note: HPI Data of Consult Patient: known to practice within the last 3 years Requesting Physician: Suzi Longoria NP Primary Care Provider: Non-Staff Physician, Family Provider: LEESA Consult Narrative Reason for consult: all over pain Narrative: Risa Joshi a 50 year old female with chronic diffuse pain and low back pain presents for evaluation. pt has failed to benefit from > 6 weeks of PT and provider guided HEP for low back pain. she continues to utilize tramadol 100mg BID PRN pain, diclofenac 75mg BID PRN pain, tylenol, pregabalin 75mg TID, ropinirole 4mg HS, robaxin 500-1000mg TID PRN with mild relief without side effects. has not been evaluated recently by rheumatology, has not called since last visit. continues to f/u with podiatry and orthopedics. pain today 8/10 aching everywhere cc:: CC: Suzi Longoria NP Review of Systems ROS Musculoskeletal Reports: back pain, extremity pain and joint pain PFSH [facility] Medical History S/P extracorporeal shock wave therapy ?Z98.890 - Other specified postprocedural states (ICD-10) Ureteral stent displacement ?T83.122A - Displacement of indwelling ureteral stent, initial encounter (ICD-10) Goiter ?E04.9 - Nontoxic goiter, unspecified (ICD-10) RSD (reflex sympathetic dystrophy) ?G90.50 - Complex regional pain syndrome I, unspecified (ICD-10) TMJ (dislocation of temporomandibular joint) ?S03.00XA - Dislocation of jaw, unspecified side, initial encounter (ICD-10) Upper back pain ?M54.9 - Dorsalgia, unspecified (ICD-10) Neck pain ?M54.2 - Cervicalgia (ICD-10) Low back pain ?M54.50 - Low back pain, unspecified (ICD-10) Fibromyalgia ?M79.7 - Fibromyalgia (ICD-10) Neuropathy ?G62.9 - Polyneuropathy, unspecified (ICD-10) Hyperthyroidism ?E05.90 - Thyrotoxicosis, unspecified without thyrotoxic crisis or storm (ICD-10) Heart palpitations ?R00.2 - Palpitations (ICD-10) Angina at rest ?I20.8 - Other forms of angina pectoris (ICD-10) Kidney stone ?N20.0 - Calculus of kidney (ICD-10) Asthma ?J45.909 - Unspecified asthma, uncomplicated (ICD-10) Smoker ?F17.200 - Nicotine dependence, unspecified, uncomplicated (ICD-10) Hypertension ?I10 - Essential (primary) hypertension (ICD-10) High cholesterol ?E78.00 - Pure hypercholesterolemia, unspecified (ICD-10) Diabetes ?E11.9 - Type 2 diabetes mellitus without complications (ICD-10) Surgical History S/P insertion of spinal cord stimulator ?Z96.89 - Presence of other specified functional implants (ICD-10) H/O: hysterectomy ?Z90.710 - Acquired absence of both cervix and uterus (ICD-10) S/P shoulder surgery ?Z98.890 - Other specified postprocedural states (ICD-10) Meds Home Medications and Allergies Home Medications ?Medication ?Instructions ?Recorded ?Confirmed ?Type aspirin 81 mg tablet,delayed 81 mg PO DAILY 02/25/23 02/25/25 History release (Adult Low Dose Aspirin) atorvastatin 80 mg tablet (Lipitor) 80 mg PO DAILY 02/25/23 02/25/25 History fenofibrate micronized PO QDAY 02/25/23 History fluticasone propionate 50 1 spray intranasal DAILY 02/25/23 02/25/25 History mcg/actuation nasal spray,suspension (Flonase Allergy Relief) furosemide 20 mg tablet (Lasix) 20 mg PO DAILY 02/25/23 02/25/25 History insulin lispro 200 unit/mL (3 mL) 60 unit subcut TID 02/25/23 02/25/25 History subcutaneous pen (Humalog KwikPen U-200 Insulin) levocetirizine 5 mg tablet (Xyzal) 5 mg PO DAILY 02/25/23 02/25/25 History lisinopril 10 mg tablet 10 mg PO DAILY 02/25/23 02/25/25 History metoprolol succinate 50 mg PO QDAY 02/25/23 02/25/25 History montelukast 10 mg tablet 10 mg PO QPM 02/25/23 02/25/25 History (Singulair) albuterol sulfate 90 mcg/actuation 2 inh inhalation TID PRN shortness 05/31/23 02/25/25 History aerosol inhaler of breath or wheezing insulin regular hum U-500 conc 500 120 unit subcut BID 07/12/23 02/25/25 History unit/mL(3 mL) subcut pen (Humulin R U-500 (Conc) Insulin Kwikpen) tramadol 50 mg tablet 100 mg (2 x 50 mg) PO BID PRN pain 01/04/24 02/25/25 Rx #120 tabs duloxetine 60 mg capsule,delayed 60 mg PO DAILY #30 caps 07/04/24 02/25/25 Rx release naloxone 4 mg/actuation nasal 4 mg intranasal Q2M PRN opioid 07/04/24 02/25/25 Rx spray (Narcan) overdose #2 ea pregabalin 50 mg capsule (Lyrica) 50 mg PO TID #90 caps 09/04/24 02/25/25 Rx methocarbamol 500 mg tablet See Rx Instructions .Route 10/17/24 02/25/25 Rx .COMPLEX PRN spasms #180 tabs ropinirole 4 mg tablet 4 mg PO DAILY #30 tabs 12/06/24 02/25/25 Rx diclofenac sodium 75 mg 75 mg PO BID PRN pain #60 tabs 02/13/25 02/25/25 Rx tablet,delayed release ropinirole 4 mg tablet 4 mg PO HS #30 tabs 03/06/25 Rx tramadol 50 mg tablet See Rx Instructions .Route 03/06/25 Rx .COMPLEX PRN pain #120 tabs pregabalin 75 mg capsule (Lyrica) 75 mg PO TID #90 caps 03/27/25 Rx tramadol 50 mg tablet See Rx Instructions .Route 04/04/25 Rx .COMPLEX PRN pain #120 tabs Allergies Allergy/AdvReac Type Severity Reaction Status Date / Time Penicillins Allergy Unknown Unknown Verified 02/25/25 07:38 Exam Narrative Exam Narrative: diffuse myofascial pain Constitutional Documenting provider has reviewed patient's vital signs: yes Common normals: no apparent distress, oriented x3, healthy appearing, alert and well nourished General appearance: cooperative HENMT Common normals: normocephalic, hearing grossly normal bilaterally and moist oral mucous membranes Head and scalp: normocephalic Eye Common normals: PERRL Pupil: PERRL Neck & C-Spine Common normals: full ROM General: normal visual inspection Chest Common normals: inspection of chest normal Respiratory Common normals: normal respiratory effort, no retractions and no use of accessory muscles Back & Pelvis Lumbar spine/lower back: ROM limited, pain with ROM, lumbar spinal tenderness Lumbar spinal tenderness location: L3, L4 and L5 and straight leg raise positive right Sacroiliac joints: SI joint(s) abnormal Other: sensation intact BLE strength 5/5 in BLE Extremity Other: left knee brace and left foot brace Neuro Common normals: oriented x3 Sensorium/orientation: alert Psych Common normals: mental status grossly normal, thought process normal, cooperative, affect normal, speech normal and activity/motor behavior normal Speech: normal speech Thought process: normal thought process Results Additional Findings Additional findings: If on a controlled substance or opioids, I have checked an [place] report on this patient and there are no aberrancies noted in the prescribing history.??If on a controlled substance or opioid a drug screen was completed and reviewed within the last year, and if there has not been a drug screen completed we ordered one today to monitor higher risk, state monitored pain medication use. As part of providing excellent, safe, comprehensive care, the following was completed at our patient's visit: 1. A medication reconciliation and review to ensure accurate knowledge of current/active medications, including asking our patients to inform us about any [id number]-[id number] medications or herbal remedies/nutritional supplements/alternative remedies. 2. A review to specifically ensure our patients have had annual screening for screening for depression, screening for tobacco use, and screening for unhealthy alcohol use. For concerning screenings had a discussion with the patient, provided patient education, and recommended follow-up with primary care provider when appropriate. If patient noted with a risk of falling, they received education on strength, gait, and balance training to prevent future risk of falling. Portions of this note may have been carried over from the previous visit and updated as appropriate. Please note this office utilizes paper charting in addition to the electronic medical record. A list of current medications, vitals, and PMH is available there as the clinical staff outside of myself do not have access to [employer] charting during the clinic day operations. As part of providing quality comprehensive care the current medications, vitals, and PMH were reviewed in the paper chart. Assessment and Plan Assessment and Plan (1) Fibromyalgia: (2) Lumbar spondylosis: Assessment and Plan: 30-24 bilateral L4-5 L5-S1 MBB with >80% improvement in pain and functional ability while anesthetized 916-24 bilateral L4-5 L5-S1 MBB with >80% improvement in pain and functional ability while anesthetized 10-15-24 right L4-5 L5-S1 facet RFA >50% improvement in pain and functional ability for at least 6 months, procedure completed with MAC sedation 6 bilateral L4-5 L5-S1 facet RFA >50% improvement in facet mediated low back pain (3) Lumbar radiculopathy: (4) Chronic prescription opiate use: Assessment and Plan: I feel these medications are improving the patient's quality of life and allow them to tolerate activities of daily living as well as participate in recreational activity.? The patient does not report intolerable side effects. The patient is NOT opioid naive and non-pharmacologic and non-opioid treatment has failed to significantly relieve the patient's pain and improve functionality. The patient has a diagnosis that is related to a somatic or visceral pain etiology. ? ?? I reviewed with the patient the potential risks and side effects with the use of? opioid medications including but not limited to respiratory depression,? sedation, and even . Within the last 12 months I have verified the patient has access to naloxone should? these effects occur. The patient was advised to let? their family know they had Naloxone in case they would need to administer? the medication. I advised the patient to avoid the use of any other? sedation substances including alcohol, THC, and benzodiazepines while? taking opioid medications due to the risk of compounding side effects and? detrimental outcomes. within the last 12 months I have reviewed the [employer], pain treatment agreement and urine drug screen.? ?? A drug screen was completed within the last year, and no aberrancies were noted regarding their use of controlled substances. The patient understands they are subject to the terms and conditions of the pain contract that they have signed. ? ?? I have checked an [place] report on this patient today and there are no aberrancies noted in the prescribing history.? (5) Neuropathy: (6) RSD (reflex sympathetic dystrophy): (7) Lumbar stenosis with neurogenic claudication: (8) Chronic pain syndrome: Plan lumbar mri reviewed with pt, defer NS consult defer additional injections at this time, with diffuse pain and FM it is difficult to assess her pain. as discussed today we may consider LDN or a referral to [facility] for ketamine increase pregabalin 150mg TID, risks vs benefits reviewed continue HEP as tolerated continue tramadol 100mg BID PRN moderate to severe pain, diclofenac 75mg BID PRN pain, duloxetine 60mg daily, robaxin 500-1000mg tid prn pain/spasms f/u 1 month to evaluate response to pregabalin change
== END 2025-05-01 14:13 | disposition home or self-care (01) ==
LOC: PM 14:12
PROVIDERS: Visit Provider Nurse Practitioner
DX: M47.816 Spondylosis without myelopathy or radiculopathy, lumbar region (principal); M79.7 Fibromyalgia; M54.16 Radiculopathy, lumbar region; Z79.891 Long term (current) use of opiate analgesic; G62.9 Polyneuropathy, unspecified; G90.50 Complex regional pain syndrome I, unspecified; M48.062 Spinal stenosis, lumbar region with neurogenic claudication; G89.4 Chronic pain syndrome
CPT/HCPCS: G0463

== ENCOUNTER 2025-06-06 13:38 | Outpatient (OUT) | payer OTHER, SELFPAY ==
--- NOTE | 2025-06-06 14:38 | PM.CN ---
Consult Note: HPI Data of Consult Patient: known to practice within the last 3 years Consult date: 06/06/25 Requesting Physician: Suzi Longoria NP Primary Care Provider: Non-Staff Physician, Family Provider: LEESA Consult Narrative Reason for consult: all over pain Narrative: Risa Joshi a 50 year old female with chronic diffuse pain and low back pain presents for evaluation. pt has failed to benefit from > 6 weeks of PT and provider guided HEP for low back pain. she continues to utilize tramadol 100mg BID PRN pain, diclofenac 75mg BID PRN pain, tylenol, pregabalin 150mg TID, ropinirole 4mg HS, robaxin 500-1000mg TID PRN with mild relief. has not been evaluated recently by rheumatology, has not called since last visit. continues to f/u with podiatry. recently hospitalized for BAILEE. pending additional workup to evaluate kidneys. cc:: CC: Suzi Longoria NP Review of Systems ROS Musculoskeletal Reports: back pain, extremity pain and joint pain PFSH PFSH Medical History S/P extracorporeal shock wave therapy ?Z98.890 - Other specified postprocedural states (ICD-10) Ureteral stent displacement ?T83.122A - Displacement of indwelling ureteral stent, initial encounter (ICD-10) Goiter ?E04.9 - Nontoxic goiter, unspecified (ICD-10) RSD (reflex sympathetic dystrophy) ?G90.50 - Complex regional pain syndrome I, unspecified (ICD-10) TMJ (dislocation of temporomandibular joint) ?S03.00XA - Dislocation of jaw, unspecified side, initial encounter (ICD-10) Upper back pain ?M54.9 - Dorsalgia, unspecified (ICD-10) Neck pain ?M54.2 - Cervicalgia (ICD-10) Low back pain ?M54.50 - Low back pain, unspecified (ICD-10) Fibromyalgia ?M79.7 - Fibromyalgia (ICD-10) Neuropathy ?G62.9 - Polyneuropathy, unspecified (ICD-10) Hyperthyroidism ?E05.90 - Thyrotoxicosis, unspecified without thyrotoxic crisis or storm (ICD-10) Heart palpitations ?R00.2 - Palpitations (ICD-10) Angina at rest ?I20.8 - Other forms of angina pectoris (ICD-10) Kidney stone ?N20.0 - Calculus of kidney (ICD-10) Asthma ?J45.909 - Unspecified asthma, uncomplicated (ICD-10) Smoker ?F17.200 - Nicotine dependence, unspecified, uncomplicated (ICD-10) Hypertension ?I10 - Essential (primary) hypertension (ICD-10) High cholesterol ?E78.00 - Pure hypercholesterolemia, unspecified (ICD-10) Diabetes ?E11.9 - Type 2 diabetes mellitus without complications (ICD-10) Surgical History S/P insertion of spinal cord stimulator ?Z96.89 - Presence of other specified functional implants (ICD-10) H/O: hysterectomy ?Z90.710 - Acquired absence of both cervix and uterus (ICD-10) S/P shoulder surgery ?Z98.890 - Other specified postprocedural states (ICD-10) Meds Home Medications and Allergies Home Medications ?Medication ?Instructions ?Recorded ?Confirmed ?Type aspirin 81 mg tablet,delayed 81 mg PO DAILY 02/25/23 02/25/25 History release (Adult Low Dose Aspirin) atorvastatin 80 mg tablet (Lipitor) 80 mg PO DAILY 02/25/23 02/25/25 History fenofibrate micronized PO QDAY 02/25/23 History fluticasone propionate 50 1 spray intranasal DAILY 02/25/23 02/25/25 History mcg/actuation nasal spray,suspension (Flonase Allergy Relief) furosemide 20 mg tablet (Lasix) 20 mg PO DAILY 02/25/23 02/25/25 History insulin lispro 200 unit/mL (3 mL) 60 unit subcut TID 02/25/23 02/25/25 History subcutaneous pen (Humalog KwikPen U-200 Insulin) levocetirizine 5 mg tablet (Xyzal) 5 mg PO DAILY 02/25/23 02/25/25 History lisinopril 10 mg tablet 10 mg PO DAILY 02/25/23 02/25/25 History metoprolol succinate 50 mg PO QDAY 02/25/23 02/25/25 History montelukast 10 mg tablet 10 mg PO QPM 02/25/23 02/25/25 History (Singulair) albuterol sulfate 90 mcg/actuation 2 inh inhalation TID PRN shortness 05/31/23 02/25/25 History aerosol inhaler of breath or wheezing insulin regular hum U-500 conc 500 120 unit subcut BID 07/12/23 02/25/25 History unit/mL(3 mL) subcut pen (Humulin R U-500 (Conc) Insulin Kwikpen) tramadol 50 mg tablet 100 mg (2 x 50 mg) PO BID PRN pain 01/04/24 02/25/25 Rx #120 tabs duloxetine 60 mg capsule,delayed 60 mg PO DAILY #30 caps 07/04/24 02/25/25 Rx release naloxone 4 mg/actuation nasal 4 mg intranasal Q2M PRN opioid 07/04/24 02/25/25 Rx spray (Narcan) overdose #2 ea methocarbamol 500 mg tablet See Rx Instructions .Route 10/17/24 02/25/25 Rx .COMPLEX PRN spasms #180 tabs ropinirole 4 mg tablet 4 mg PO DAILY #30 tabs 12/06/24 02/25/25 Rx diclofenac sodium 75 mg 75 mg PO BID PRN pain #60 tabs 02/13/25 02/25/25 Rx tablet,delayed release ropinirole 4 mg tablet 4 mg PO HS #30 tabs 03/06/25 Rx tramadol 50 mg tablet See Rx Instructions .Route 03/06/25 Rx .COMPLEX PRN pain #120 tabs tramadol 50 mg tablet See Rx Instructions .Route 04/04/25 Rx .COMPLEX PRN pain #120 tabs empagliflozin 10 mg tablet 10 mg PO DAILY 05/01/25 05/01/25 History (Jardiance) fexofenadine 30 mg tablet 60 mg PO BID 05/01/25 05/01/25 History fluticasone 500 mcg-salmeterol 50 1 inh inhalation BID 05/01/25 05/01/25 History mcg/dose blistr powdr for inhalation (Wixela Inhub) pregabalin 75 mg capsule (Lyrica) 150 mg PO TID 05/01/25 05/01/25 History tramadol 50 mg tablet 100 mg (2 x 50 mg) PO BID PRN pain 05/01/25 Rx #120 tabs diclofenac sodium 75 mg 75 mg PO BID PRN pain #60 tabs 05/15/25 Rx tablet,delayed release duloxetine 60 mg capsule,delayed 60 mg PO DAILY #30 caps 05/15/25 Rx release pregabalin 150 mg capsule (Lyrica) 150 mg PO TID #90 caps 05/15/25 Rx ropinirole 4 mg tablet 4 mg PO DAILY #30 tabs 05/30/25 Rx tramadol 50 mg tablet See Rx Instructions .Route 05/30/25 Rx .COMPLEX PRN pain #120 tabs tramadol 50 mg tablet See Rx Instructions .Route 05/30/25 Rx .COMPLEX PRN pain #120 tabs Allergies Allergy/AdvReac Type Severity Reaction Status Date / Time Penicillins Allergy Unknown Unknown Verified 02/25/25 07:38 Exam Narrative Exam Narrative: diffuse myofascial pain Constitutional Documenting provider has reviewed patient's vital signs: yes Common normals: no apparent distress, oriented x3, healthy appearing, alert and well nourished General appearance: cooperative HENMT Common normals: normocephalic, hearing grossly normal bilaterally and moist oral mucous membranes Head and scalp: normocephalic Eye Common normals: PERRL Pupil: PERRL Neck & C-Spine Common normals: full ROM General: normal visual inspection Chest Common normals: inspection of chest normal Respiratory Common normals: normal respiratory effort, no retractions and no use of accessory muscles Back & Pelvis Lumbar spine/lower back: ROM limited, pain with ROM, lumbar spinal tenderness Lumbar spinal tenderness location: L3, L4 and L5 and straight leg raise positive right Sacroiliac joints: SI joint(s) abnormal Other: sensation intact BLE strength 5/5 in BLE Extremity Other: left knee brace and left foot brace pain with standing and internal/external rotation to bilateral hips Neuro Common normals: oriented x3 Sensorium/orientation: alert Psych Common normals: mental status grossly normal, thought process normal, cooperative, affect normal, speech normal and activity/motor behavior normal Speech: normal speech Thought process: normal thought process Results Additional Findings Additional findings: If on a controlled substance or opioids, I have checked an [place]AR[place] report on this patient and there are no aberrancies noted in the prescribing history.??If on a controlled substance or opioid a drug screen was completed and reviewed within the last year, and if there has not been a drug screen completed we ordered one today to monitor higher risk, state monitored pain medication use. As part of providing excellent, safe, comprehensive care, the following was completed at our patient's visit: 1. A medication reconciliation and review to ensure accurate knowledge of current/active medications, including asking our patients to inform us about any geih-rsw-nidvkuu medications or herbal remedies/nutritional supplements/alternative remedies. 2. A review to specifically ensure our patients have had annual screening for screening for depression, screening for tobacco use, and screening for unhealthy alcohol use. For concerning screenings had a discussion with the patient, provided patient education, and recommended follow-up with primary care provider when appropriate. If patient noted with a risk of falling, they received education on strength, gait, and balance training to prevent future risk of falling. Portions of this note may have been carried over from the previous visit and updated as appropriate. Please note this office utilizes paper charting in addition to the electronic medical record. A list of current medications, vitals, and PMH is available there as the clinical staff outside of myself do not have access to [facility] [employer] charting during the clinic day operations. As part of providing quality comprehensive care the current medications, vitals, and PMH were reviewed in the paper chart. Assessment and Plan Assessment and Plan (1) Fibromyalgia: (2) Lumbar spondylosis: Assessment and Plan: 7-30-24 bilateral L4-5 L5-S1 MBB with >80% improvement in pain and functional ability while anesthetized 9-16-24 bilateral L4-5 L5-S1 MBB with >80% improvement in pain and functional ability while anesthetized 10-15-24 right L4-5 L5-S1 facet RFA >50% improvement in pain and functional ability for at least 6 months, procedure completed with MAC sedation 6-2-25 bilateral L4-5 L5-S1 facet RFA >50% improvement in facet mediated low back pain (3) Lumbar radiculopathy: (4) Chronic prescription opiate use: Assessment and Plan: I feel these medications are improving the patient's quality of life and allow them to tolerate activities of daily living as well as participate in recreational activity.? The patient does not report intolerable side effects. The patient is NOT opioid naive and non-pharmacologic and non-opioid treatment has failed to significantly relieve the patient's pain and improve functionality. The patient has a diagnosis that is related to a somatic or visceral pain etiology. ? ?? I reviewed with the patient the potential risks and side effects with the use of? opioid medications including but not limited to respiratory depression,? sedation, and even . Within the last 12 months I have verified the patient has access to naloxone should? these effects occur. The patient was advised to let? their family know they had Naloxone in case they would need to administer? the medication. I advised the patient to avoid the use of any other? sedation substances including alcohol, THC, and benzodiazepines while? taking opioid medications due to the risk of compounding side effects and? detrimental outcomes. within the last 12 months I have reviewed the [employer], pain treatment agreement and urine drug screen.? ?? A drug screen was completed within the last year, and no aberrancies were noted regarding their use of controlled substances. The patient understands they are subject to the terms and conditions of the pain contract that they have signed. ? ?? I have checked an OARRS report on this patient today and there are no aberrancies noted in the prescribing history.? (5) Neuropathy: (6) RSD (reflex sympathetic dystrophy): (7) Lumbar stenosis with neurogenic claudication: (8) Chronic pain syndrome: (9) Chronic hip pain, bilateral: Assessment and Plan: prior hip xray from 03/13/24 shows no OA to left and mild to right hip, however she states her bone density radiologist told her she had severe OA Plan decrease lyrica back to 75mg TID, has not noticed improvement with 150mg TID and recently had BAILEE refer to orthopedics for evaluation of bilateral hip pain per pt request continue HEP as tolerated continue tramadol 100mg BID PRN moderate to severe pain, diclofenac 75mg BID PRN pain, duloxetine 60mg daily, robaxin 500-1000mg tid prn pain/spasms f/u 2 months
== END 2025-06-06 13:39 | disposition home or self-care (01) ==
LOC: PM 13:38
PROVIDERS: Visit Provider Nurse Practitioner
DX: M79.7 Fibromyalgia (principal); M47.816 Spondylosis without myelopathy or radiculopathy, lumbar region; M54.16 Radiculopathy, lumbar region; Z79.891 Long term (current) use of opiate analgesic; G62.9 Polyneuropathy, unspecified; G90.50 Complex regional pain syndrome I, unspecified; M48.062 Spinal stenosis, lumbar region with neurogenic claudication; G89.4 Chronic pain syndrome; M25.551 Pain in right hip; M25.552 Pain in left hip
CPT/HCPCS: G0463

== ENCOUNTER 2025-08-07 12:54 | Outpatient (OUT) | payer OTHER, SELFPAY ==
--- OUTSIDE RECORDS SUMMARY | 2025-07-08 09:15 | XMS_ITS ---
Author Organization [facility] Address [address] [place] [address] Care Team Providers Care Indigo Vat Tender Cloth Name Role Phone Might Ryder LUNA Primary Care Provider Unavailab Eric Wick Unavailable [phone] Allergies Allergen (clinical drug ingredient) Drug/Non Drug Allergy documented on EMR Reaction Allergy Type Onset Date Status penicillin (uncoded)hivesAllergyActive Reason For Referral Reason APPROVED .....Obtain authorization for left shoulder MRI Diagnosis 1 Acute pain of left s houlder (M25.512) [facility]erring Provider First Name Eric Referring Provider Last Name Dominique Referring Provider Speciality Orthopedic Surgery Referred Organization [facility] n Radiology Procedure 1 MRI Joint Upper Ext w/o Dye (36194) General Notes Diana Duff 025 04:13:44 PM >APPROVED MD COHERE Authorization #[id number] Tracking #[id number] VALID 07/09/2025-08/23/2025 COPY IN CHART MA NOTIFIED REF FAXED TO Claudio BROWN Kimberly 07/09/2025 03:24:47 PM > Faxed order to [facility] Referral Priority Routine Reason APPROVED ......Obtai n authorization for right shoulder MRI Diagnosis 1 Acute pain of right shoulder (M25.511) Referral Organization [facility] Referring Provider First Name Eric Referring Provider Last Name Dominique Referring Provider Speciality Orthopedic Surgery Referred Organization [facility] n Radiology Procedure 1 MRI Joint Upper Ext w/o Dye (74590) General Notes Diana Duff 025 04:19:35 PM >PER KENTONBonnie, SHOWS A DUPLICATE. THIS IS FOR THE RIGHT. CALLED [facility], PER DEEPTHI, WILL START OVER THE PHONE. PENDING [facility] TRX #[id number] NEED CLINICAL UPLOADEDHerberthDiana lacy 07/08/2025 04:31:57 PM >NEED DICTATIONRichelle Monica 07/10/2025 12:47:29 PM >doneSherin Amy 07/10/2025 01:11:17 PM >STILL PENDINGSherin Amy 07/15/2025 08:27:50 AM >APPROVED PER [email or web address] Authorization #[id number] Tracking #[id number] VALID 07/08/2025-08/22/2025 COPY IN CHART MA [facility] Referral Priority Routine REASON FOR VISIT LT SHOULDER PAIN Medications Medication SIG (Take, Route, Frequency, Duration) Notes Start Date End Date Status fenofibrate ActiveHumaLOGActiveFlonase Allergy ReliefActivelisinoprilActiveatorvastatin ActiverOPINIRoleActivediclofenacActiveDULoxetineActiveaspirinActiveestradiol ActiveLasixActivetraMADolActivealbuterolActiveTylenolActivemetoprololActive gabapentinActivebaclofenActive Social History Tobacco Use: Social History Observation Description Date Details (start date - stop date) Current Smoker NA - NA AUDIT-C (Standard) Question Answer Notes Did you have a drink containing alcohol in the p ast year? No Lpgrqm8JjynmiaegacrxyLaieikxzYeyoyst Control (Standard) Question Answer Notes Tobacco use: Current smoker Encounters Encounter Location Date Provider Diagnosis [facility] [facility] [address] [place] [address] [address] [place] [id number] 07/08/2025 Eric Dominique Acute pain of left shoulder M25.512 and Acute pain of right shoulder M25.511 Assessments Encounter Date Diagnosis (ICD Code) Assessment Notes Treatment Notes Treatment Clinical Notes Section Notes 07/08/2025 Acute pain of left shoulder (ICD -10 - M25.512) 07/08/2025ute pain of right shoulder (ICD-10 - M25.511)07/08/2025Other For bilateral shoulder pain and weakness after her falls she would like to proceed with MRI scans to evaluate for rotator cuff tears. She will follow-up once the studies are complete. Import medication Plan Of Treatment Treatment Notes Assessment Notes Other For bilateral shoulder pain and weakness after her falls she would like to proceed with MRI scans to evaluate for rotator cuff tears. She will follow-up once the studies are complete. Import medication Pending Test Test Name Order Date MRI : Shoulder W/O Contrast Right - 7322 1 07/08/2025 [facility]- SHOULDER 3 VIEW RIGHT 52427 025 [facility]- SHOULDER 3 VIEW LEFT 85946 07/08/20 25 MRI : Shoulder W/O Contrast Left - 79706 07/08/2025 Referrals Referral Date Details 07/08/2025 07/08/2025, APPROVED .....Obtain authorization for left shoulder MRI, 07/08/2025 07/08/2025, APPROVED ......Obtain authorization for right shoulder MRI, Next Appt Details Follow Up: After MRI, Reaso n: Provider Name:Eric Sherman and, 08/14/2025 01:30:00 PM, [address] [facility], [address], [address], Progress Notes * VIRGIL WARNERDOB: 3 (50 yo F)Acc No.[id number]:07/08/2025 Patient:?VIRGIL WARNER :?Eric Montoya Catina, MDDOB:1975???Age:50 Y ???Sex:FemaleDate:07/08/2025Phone:[phone]:[address] [facility]Pcp:CHERYL Mccray Subjective: * Chief Complaints: * 1 . LT SHOULDER PAIN. * HPI: ???General Follow Up Information:? Patient presents today for follow-up of bilateral shoulder pain. We had seen her in December of this year and recommended an MRI scan of her shoulder after a fall and pain and weakness. Prior to getting the MRI scan completed she injured her foot and had surgery for Lisfranc fracture dislocation. Now that she has recovered from her foot both shoulder's have become increasingly pain full. * Medical History: A sthma/COPD, Respiratory problems:, Heart problems:, Diabetes, GI Problems: , High Blood Pressure, Depression, Kidney trouble, Sleep apnea, CPAP Machine: Yes, Do you use the CPAP machine? Yes, Drug Allergies. * Surgical History: R ight shoulder , Spinal stimulator . * Family History: N o Family History [...] use: C urrent smoker. * Medications: T aking Lasix , Taking traMADol , Taking metoprolol , Taking Tylenol , Taking albuterol , Taking estradiol , Taking aspirin , Taking DULoxetine , Taking diclofenac , Taking rOPINIRole , Taking lisinopril , Taking Flonase Allergy Relief , Taking HumaLOG , Taking fenofibrate , Taking atorvastatin , Taking baclofen , Taking gabapentin , Medication List reviewed and reconciled with the patient * Allergies: P enicillin: Hives. Objective: * Vitals: * Examination: ???General examination: ???Examination today of both shoulders reveals symmetric forward flexion and rotation. Pain and mild weakness with resisted rotator cuff testing of both shoulders. ???X-ray Imaging Studies: ???3 view x-rays of both shoulders obtained today in clinic and interpreted by myself show no acute abnormalities. ??? Assessment: * Assessment: 1.?Acute pain of left shoulder - M25.512 (Primary)???2.?Acute pain of right shoulder - M25.511??? Plan: * Treatment: ?Imaging: [facility]- SHOULDER 3 VIEW LEFT 83010 ?Imaging: MRI : Shoulder W/O Contrast Left - 81690? Referral To: ?Reason:APPROVED.....Obtain authorization for left shoulder MRI 2.?Acute pain of right shoulder?Imaging: MRI : Shoulder W/O Contrast Right - 14113 ?Imaging: [facility]- SHOULDER 3 VIEW RIGHT 78346? Referral To: ?Reason:APPROVED......Obtain authorization for right shoulder MRI 3.?Others? Notes: For bilateral shoulder pain and weakness after her falls she would like to proceed with MRI scans to evaluate for rotator cuff tears. She will follow-up once the studies are complete. Import medication?? * Procedure Codes: 7 3030 X-ray Shoulder, 2 or more view, Modifiers: LT , 53461 X-ray Shoulder, 2 or more view, Modifiers: RT * Follow Up: A fter MRI Forms: * Images: * Electronic signature of Eric Dominique MD on 08/07/2025 at 12:59 PM ESTSign off status: Pending * Provider: Cheo Dominique MD Date: Generated for Printing/Faxing/eTransmitting on:?08/07/2025 12:59 PM EST History and Physical Notes * HPI (History of Present Illness) CategorySub-CategoryDetailNotesCategory NotesGeneral Follow Up Information Patient presents today for follow-up of bilateral shoulder pain. We had seen her in December of this year and recommended an MRI scan of her shoulder after a fall and pain and weakness. Prior to gettingthe MRI scan completed she injured her foot and had surgery for Lisfranc fracture dislocation. Now that she has recovered from her foot both shoulder's have become increasingly pain full. Examination CategorySub-CategoryDetailNotesCategory NotesGeneral examinationExamination today of both shoulders reveals symmetric forward flexion and rotation. Pain and mild weakness with resisted rotator cuff testing of both shoulders.X-ray Imaging Studies3 view x-rays of both shoulders obtained today in clinic and interpreted by myself show no acute abnormalities. Consultation Request Notes Referral Date Referring Provider Referred Provider Not es 07/08/2025 Eric Dominique , APPROVED .. ...Obtain authorization for left shoulder MRI 07/08/2025 Eric Dominique , APPROVED .. ....Obtain authorization for right shoulder MRI
--- OUTSIDE RECORDS SUMMARY | 2025-08-05 09:45 | XMS_ITS ---
Author Organization [facility] Address [address] [place] [address] Care Team Providers Care Decorative Greens Cutter Name Role Phone Ryder Mehta Primary Care Provider Unavailab Eric Wick Unavailable [phone] REASON FOR VISIT bi-lateral shoulder MRI's, [facility] MRI Encounters Encounter Location Date Provider Diagnosis [facility] [facility] [address] [address] 08/05/2025 Eric Dominique Plan Of Treatment Next Appt Details Provider Name:Eric Sherman and, 08/14/2025 01:30:00 PM, [address] [place] [address], [place], [address], Progress Notes * VIRGIL WARNERDOB: 3 (50 yo F)Acc No.[id number]:08/05/2025 Patient:?TIMMYVIRGIL :?Eric Dominique, MDDOB:1975???Age:50 Y ???Sex:FemaleDate:08/05/2025Phone:[phone]:[address] [place] [address]Pcp:CHERYL Mccray Subjective: * Chief Complaints: * 1 . bi-lateral shoulder MRI's, [facility] MRI. * Medical History: Objective: * Vitals: Assessment: Plan: * Treatment: Forms: * Images: * Electronic signature of Eric Dominique MD on 08/07/2025 at 12:58 PM ESTSign off status: Pending * Provider: Cheo Dominique MD Date: 10/05/2024 Generated for Printing/Faxing/eTransmitting on:?08/07/2025 12:58 PM EST
--- OUTSIDE RECORDS SUMMARY | 2025-08-07 12:59 | XMS_ITS | Clinical Summary ---
Author Organization [facility] Address [facility] [id number] [address] [place] [address] Care Team Providers Care Stonemason Name Role Phone Unavailable Primary Care Provider Unavailabl e Social History Tobacco UseTypesPacks/DayYears UsedDateSmoking Tobacco: Never AssessedChildcare AnswerDate HlmoqxevFpuoaxdvfZtvmjot45/12/2019EmploymentAnswerDate Recorded EkqngrcjpvPehbbfv16/12/2019CommentsUnknownSex and Gender Information ValueDate RecordedSex Assigned at BirthNot on fileLegal XvaMtxovw52/06/2015 12:04 PM EDTGender IdentityNot on fileSexual OrientationNot on file Plan of Treatment Not on file Medical Devices Not on file
--- OUTSIDE RECORDS SUMMARY | 2025-08-07 12:59 | XMS_ITS | Clinical Summary ---
Author Organization [facility] Address [address] [place], [place] [address] Care Team Providers Care Homemaker Companion Name Role Phone Juvenal Azevedo DPM Primary Care Provider Eric Darby Unavailable Unavailable Allergies Active AllergyReactionsCriticalityNoted PcaqNoyuuzkzTbdonqczgdpFwct87/02/2009 Medications MedicationSigDispense QuantityRefillsLast FilledStart DateEnd DateStatus FLUTICASONE-SALMETEROL 250 MCG-50 MCG/DOSE DISK DEVICE FOR INHALATION Take one(1) tablet two(2) times daily.ctive cyanocobalamin(B-12 DOTS 500 MCG TAB) Take one(1) tablet daily.ctive GLIPIZIDE 5 MG TAB Take one(1) tablet three times daily.ctive tramadol hcl(ULTRAM 50 MG TAB) Take one (1) or two(2) tablets every six(6) hours as needed for pain. Active WMTQZEH-QHDKOGEGNR-SXUAZWNIMLRGF-CAFFEINE 30 MG-50 MG-325 MG-40 MG CAP as necessary for eubu752ctive ropinirole hcl(REQUIP 0.25 MG TAB) Take one(1) tablet daily.ctive pregabalin(LYRICA 75 MG CAP) Take one(1) tablet two(2) times daily.ctive bupropion hcl(BUDEPRION SR 150 MG TAB) Take one(1) tablet two(2) in twhqxrh942ctive fluoxetine hcl(PROZAC 20 MG CAP) take 4 tgrds906ctive insulin glargine,hum.rec.anlog(LANTUS SOLOSTAR 300 UNIT/3 ML SUB-Q INSULIN PEN) 30ml twice mtftz174ctive losartan/hydrochlorothiazide(HYZAAR 100 MG-25 MG TAB) Take one(1) tablet daily.ctive levothyroxine sodium(SYNTHROID 50 MCG TAB) Take one(1) tablet daily.ctive naproxen sodium(ALEVE 220 MG TAB) Take one(1) tablet daily.ctive ALBUTEROL 90 MCG/ACTUATION AEROSOL INHALER as necessary for spvi987ctive lidocaine(LIDODERM 5 % (700 MG/PATCH) ADHESIVE PATCH) as egpblemky404/30/2009ctive diclofenac sodium(VOLTAREN 1 % TOPICAL GEL) four times rtgiq725ctive gabapentin(NEURONTIN 300 MG CAP) Take 2 at bedtime, one at Am and one at afternoon 120 ctive aspirin-calcium carbonate 81 mg-300 mg calcium(777 mg) tab Take 81 mg by mouth.Active atorvastatin (LIPITOR) 80 mg tablet take 1 tablet by mouth at fckajwt0608/24/2018Active clotrimazole-betamethasone (LOTRISONE) cream APPLY TWICE A DAY NEEDED FOR VULVAR ITCHING NOT TO EXCEED 6 WEEKS CONTINUOUS USAGE09/21/2018Active Fenofibrate (LOFIBRA) 54 mg tablet take 1 tablet by mouth once daily06/11/2019Active insulin lispro (HUMALOG) 200 unit/mL (3 mL) injection Inject 15 Units subcutaneously.02/28/2019Active lisinopril (ZESTRIL, PRINIVIL) 10 mg tablet Take 10 mg by mouth.11/25/2015Active loratadine 10 mg cap Take 10 mg by mouth.Active metoprolol succinate ER (TOPROL XL) 25 mg 24 hr tablet Take 25 mg by mouth.02/23/2019Active montelukast (SINGULAIR) 10 mg tablet Take 10 mg by mouth.04/04/2019Active Insulin [place], Disposable, (INSUPEN) 30 gauge x 5/16 ndle 1 Each.02/28/2019Active MEDICATION, NON-DATABASE Apply to affected area. Homeopathic Products (PROSACEA EX)Active MEDICATION, NON-DATABASE Take 2 tablets by mouth. Misc Natural Products (OSTEO BI-FLEX ADV DOUBLE ST PO) Active multivit-min/iron/folic acid/K (ADULTS MULTIVITAMIN ORAL) Take 1 tablet by mouth.Active tiZANidine HCl 4 mg capsule Take 4 mg by mouth daily at bedtime.Active dicyclomine (BENTYL) 20 mg tablet Take 20 mg by mouth three times daily.Active Active Problems ProblemNoted DateDiagnosed DateGastroparesis due to secondary ygpldefs86/03/2020 Social History Tobacco UseTypesPacks/DayYears UsedDateSmoking Tobacco: Every YjpMwrecililg160 Smokeless Tobacco: NeverAlcohol UseStandard Drinks/WeekCommentsNot Currently0 (1 standard drink = 0.6 oz pure alcohol)Area Deprivation IndexAnswerDate Recorded National Score (1-100), lower number is lower riskNot on file09/01/2020State Score (1-10), lower number is lower riskNot on file09/01/2020Data from: https://www.neighborhoodatlas.medicine.[facility].edu/. Last address used for calculationNot on file09/01/2020CommentsNoSex and Gender Information ValueDate RecordedSex Assigned at BirthNot on fileLegal AlsZgqifv99/02/2012 8:22 AM ESTGender IdentityNot on fileSexual OrientationNot on file Last Filed Vital Signs Vital SignReadingTime TakenCommentsBlood Asfvbjwz410/7803 10:59 AM EDT Ugmbb1754 10:59 AM UWWCciftvnqmey32.8 ??C (98.2 ??F)12/07/2019 10:59 AM EDTRespiratory Rate--Oxygen Cqfcqjtgod78%12/07/2019 10:59 AM EDTInhaled Oxygen Concentration--Ehzwty36.9 kg (169 lb 8 oz)12/07/2019 10:59 AM FTRYdyeje096.6 cm (5' 6 )12/07/2019 10:59 AM EDTBody Mass Index27.36012/07/2019 10:59 AM EDT Plan of Treatment Health MaintenanceDue DateLast DoneCommentsAnxiety Gmlcuiyvo57/05/1991Depression Ykbbozhlv85/05/1991HIV Ijgmxcjaw38/05/1991Hepatitis C Koajcsfku28/05/1991 DTaP,Tdap,Td Vaccine (1 - Tdap)02/29/1992Hepatitis B Vaccine (1 of 3 - 19+ 3- dose series)02/29/1992Cervical Cancer Xmhdhvmjo26/05/1994Mammogram Screening 2013CT Unebjcehhmvc99/05/2018Cologuard (FIT-DNA)2018Colonoscopy 2018Colorectal Cancer Tkgvgymve89/05/2018Fecal Occult Blood2018 Ankwkpccymvhk92/05/2018Diabetes Pwzmlfsul94, 07/20/2019, 07/20/2019, Additional history existsPneumococcal Vaccine: 50+ (2 of 2 - PCV) Shingrix Vaccine (1 of 2)2023Lipid Wykmxmpmp25/09/2024 06/04/2019, 08/21/2018Covid-19 Vaccine (1 - season)2025Influenza Vaccine (#1)5006/11/2019, 08/24/2018, 07/09/2015, Additional history exists Insurance Care Teams Team MemberRelationshipSpecialtyStart DateEnd Date Juvenal Azevedo DPM [facility]06/17/09 Eric Darby Gastroenterology05/21/19
--- OUTSIDE RECORDS SUMMARY | 2025-08-07 12:59 | XMS_ITS | Patient Health Record ---
Author Organization [facility] Address [address] [place] [address] Care Team Providers Care Grader Marker Name Role Phone Might Ryder LUNA Primary Care Provider Eric Scott Unavailable [phone] Allergies Allergen (clinical drug ingredient) Drug/Non Drug Allergy documented on EMR Reaction Allergy Type Onset Date Status penicillin (uncoded)hivesAllergyActive Results Component Value Reference Range Notes MRI SHOULDER LEFT WO CONTRAS T (Not yet reviewed by provider) Interpretation: Performing Lab: Notes/Report: EXAMINATION: Performed at: [address] [place] [facility] MRI SHOULDER RIGHT WO CONTRA ST (Not yet reviewed by provider) Interpretation: Performing Lab: Notes/Report: EXAMINATION: Performed at: [address] [place] [address] Reason For Referral Reason APPROVED ......Obtai n authorization for right shoulder MRI Diagnosis 1 Acute pain of right shoulder (M25.511) Referral Organization [facility] Referring Provider First Name Eric Referring Provider Last Name Catina Referring Provider Speciality Orthopedic Surgery Referred Organization [facility] Radiology Procedure 1 MRI Joint Upper Ext w/o Dye ([id number]) General Notes Diana Duff 025 04:19:35 PM >PER HUGH, SHOWS A DUPLICATE. THIS IS FOR THE RIGHT. CALLED [facility], PER DEEPTHI, WILL START OVER THE PHONE. PENDING [facility] TRX #[id number] NEED CLINICAL UPLOADEDSherin Amy 07/08/2025 04:31:57 PM >NEED DICTATIONRichelle Monica 07/10/2025 12:47:29 PM >doneSherin Amy 07/10/2025 01:11:17 PM >STILL PENDINGSherin Amy 07/15/2025 08:27:50 AM >APPROVED PER [facility] Authorization #[id number] Tracking #[id number] VALID 07/08/2025-08/22/2025 COPY IN CHART MA NOTIFED REF FAXED TO JASPER Referral Priority Routine Reason APPROVED .....Obtain authorization for left shoulder MRI Diagnosis 1 Acute pain of left s derekulder (M25.512) Referral Organization [facility] Referring Provider First Name Eric Referring Provider Last Name Hilton Referring Provider Speciality Orthopedic Surgery Referred Organization [facility] Radiology Procedure 1 MRI Joint Upper Ext w/o Dye ([id number]) General Notes Diana Duff 025 04:13:44 PM >APPROVED ME [facility] Authorization #[id number] Tracking #[id number] VALID 07/09/2025-08/23/2025 COPY IN CHART MA NOTIFIED REF FAXED TO Claudio [place] Kimberly 07/09/2025 03:24:47 PM > Faxed order to [facility] Referral Priority Routine Medications Medication SIG (Take, Route, Frequency, Duration) Notes Start Date End Date Status gabapentin ActivebaclofenActiveatorvastatinActiverOPINIRoleActivediclofenacActiveDULoxetine ActiveaspirinActivefenofibrateActiveHumaLOGActiveLasixActiveFlonase Allergy ReliefActivelisinoprilActivetraMADolActiveestradiolActivealbuterolActiveTylenol ActivemetoprololActive Social History Tobacco Use: Social History Observation Description Date Details (start date - stop date) Current Smoker NA - NA AUDIT-C (Standard) Question Answer Notes Did you have a drink containing alcohol in the p ast year? No Pyspln3DhkxbztnzbyikdLuirqvdaPcdqjyy Control (Standard) Question Answer Notes Tobacco use: Current smoker Problems Problem Type SNOMED Code ICD Code Onset Dates Problem Status W/U Status Risk Notes Problem Shoulder joint pain ([id number]) Pain, justine nt, shoulder, left (M25.512) Activeconfirmed Encounters Encounter Location Date Provider Diagnosis [facility] [address] [place] [address] 07/08/2025 Eric Catina Acute pain of left shoulder M25.512 and [...] are complete. Import medication Plan Of Treatment Pending Test Test Name Order Date MRI : Shoulder W/O Contrast Right - 7322 1 07/08/2025 MRI : Shoulder W/O Contrast Left - 96329 01/11/2024 PT 2024 MRI SHOULDER LEFT WO CONTRAST 08/05/2025 MRI SHOULDER RIGHT WO CONTRAST 5 [facility]- SHOULDER 3 VIEW RIGHT 72095 025 [facility]- SHOULDER 3 VIEW LEFT 63375 07/08/20 25 MRI : Shoulder W/O Contrast Left - 69927 07/08/2025 Next Appt Details Provider Name:Eric Sherman and, 08/14/2025 01:30:00 PM, [address], [place], [address], Insurance Providers Payer Name Payer Address Payer Phone Subscriber Number Group Number Insured Name Patient Relationship to Insured Coverage Start Date Coverage End Date Medical [facility] [address] [address] [place] [address] [id number] JESUS WARNERelf - patient is the insured Medical (General) History Medical History History ICD Code Asthma/COPD Respiratory problems:Heart problems:DiabetesGI Problems:High Blood Pressure DepressionKidney troubleSleep apneaCPAP Machine: YesDo you use the CPAP machine? YesDrug AllergiesSurgical History Surgery Date(Month/Year) Spinal stimulator Right shoulder
--- OUTSIDE RECORDS SUMMARY | 2025-08-07 13:10 | XMS_ITS | CCD ---
Author Organization [facility] Care Team Providers Care Field Nurse Name Role Phone Might, Vivian Combs Primary Care Provider MIGHT, VIVIAN W Primary Care Unavailable CLAUDIA WILLETT Referring Unavailable Might BELT PICKER - 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, Vivian W Primary Care Provider Might BELT PICKER - 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, Vivian W Primary Care Provider Might BELT PICKER - 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, Vivian W Primary Care Provider Might BELT PICKER - 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, Vivian W Primary Care Provider Might BELT PICKER - 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, Vivian W Primary Care Provider Might BELT PICKER - 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, Vivian W Primary Care Provider NON STAFF Primary Care Provider UnavailMD Shiraz Joyner Attending Provider [phone] NON STAFF Primary Care Unavailable Shiraz Sherman Attending Unavailable Shiraz Sherman Admitting Unavailable NON STAFF Primary Care Unavailable Shiraz Sherman Attending Unavailable Shiraz Sherman Admitting Unavailable NON STAFF Primary Care Unavailable Tyree Hidalgo Attending Unavailable Tyree Hidalgo Admitting Unavailable NON STAFF Primary Care Unavailable Shiraz Sherman Admitting Unavailable Shiraz Sherman Attending Unavailable Shiraz Sherman Unavailable YUMIKO ., DR JASPER Grider Attending Unavailable YUMIKO ., DR JASPER Grider Admitting Unavailable MISC, DR GAFFNEY Primary Care Unavailable MISC, DR GAFFNEY Consulting Unavailable YUMIKO ., DR JASPER Grider Consulting Unavailable VANESSA FROST Consulting Unavailable MISLindsay, DR GAFFNEY Primary Care Unavailable YUMIKO ., DR JASPER Grider Attending Unavailable YUMIKO Tomlinson, DR JASPER Grider Admitting Unavailable YUMIKO Tomlinson, DR JASPER Grider Consulting Unavailable SHARP, MAXIM Consulting Unavailable LAKSHMIPATHY ., NARENDRANATH Attending Kateryna vailable LAKSHMIPATHY ., NARENDRANATH Admitting Kateryna vailable MISC, DR GAFFNEY Primary Care Unavailable MISC, DR GAFFNEY Consulting Unavailable GAMEZ ., LESLIE Consulting Unavailable CLEVELAND ., DR JASPER Grider Attending Unavailable CLEVELAND ., DR JASPER Grider Admitting Unavailable MISC, DR GAFFNEY Primary Care Unavailable CLEVELAND ., DR JASPER Grider Attending Unavailable CLEVELAND ., DR JASPER Grider Admitting Unavailable MISC, DR GAFFNEY Consulting Unavailable MISC, DR GAFFNEY Primary Care Unavailable CLEVELAND ., DR JASPER Grider Consulting Unavailable CLEVELAND ., DR JASPER Grider Attending Unavailable CLEVELAND ., DR JASPER Grider Admitting Unavailable MISC, DR GAFFNEY Primary Care Unavailable MISC, DR GAFFNEY Consulting Unavailable GAMEZ ., LESLIE Consulting Unavailable LAKSHMIPATHY ., NARENDRANATH Attending Kateryna vailable LAKSHMIPATHY ., NARENDRANATH Admitting Kateryna vailable MISC, DR GAFFNEY Primary Care Unavailable MIAMI, DR PHILLIP Reilly Consulting Unavailable LAKSHMIPATHY ., MINERVA Consulting Kateryna vailable MISC, DR GAFFNEY Primary Care Unavailable CLEVELAND ., DR JASPER Grider Attending Unavailable CLEVELAND ., DR JASPER Grider Admitting Unavailable MISC, DR GAFFNEY Consulting Unavailable GAMEZ ., LESLIE Consulting Unavailable CLEVELAND ., DR JASPER Grider Attending Unavailable CLEVELAND ., DR JASPER Grider Admitting Unavailable MISC, DR GAFFNEY Primary Care Unavailable GAMEZ ., LESLIE Consulting Unavailable LAKSHMIPATHY ., NARENDRANATH Attending Kateryna [...] DR GAFFNEY Primary Care Unavailable LAKSHMIPATHY ., NARENDMARINOATH Attending Kateryna vailable LAKSHMIPATHY ., NARENDMARINOATH Admitting Kateryna vailable MISC, DR GAFFNEY Primary Care Unavailable MISC, DR GAFFNEY Consulting Unavailable LAKSHMIPATHY ., MINERVA Consulting Kateryna vailable MISC, DR GAFFNEY Primary Care Unavailable CLEVELAND ., DR JASPER Grider Attending Unavailable CLEVELAND ., DR JASPER Grider Admitting Unavailable GAMEZ ., LESLIE Consulting Unavailable MISC, DR GAFFNEY Primary Care Unavailable CLEVELAND ., DR JASPER Grider Attending Unavailable CLEVELAND ., DR JASPER Grider Admitting Unavailable CLEVELAND ., DR JASPER Grider Consulting Unavailable THORPEVERN LEDESMA Consulting Unavailable Might BELT PICKER - 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, Vivian W Primary Care Provider Might BELT PICKER - 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, Vivian W Primary Care Provider MIGHT, VIVIAN W Primary Care Unavailable MIKE, KHASE A Referring Unavailable MIGHT, VIVIAN W Primary Care Unavailable RAMIRO, RICKY Consulting Unavailable MIKE, KHASE A Attending Unavailable MIKE, KHASE A Admitting Unavailable MIKE, KHASE A Admitting Unavailable MIGHT, VIVIAN W Primary Care Unavailable RAMIRO, RICKY Consulting Unavailable MIKE, KHASE A Attending Unavailable MIKE, KHASE A Admitting Unavailable MIGHT, VIVIAN W Primary Care Unavailable ROSEANN MACIAS Referring Unavailable MIKE, KHASE A Attending Unavailable NON STAFF Primary Care Provider Unavailkatarzyna e Eagle Noe DO Attending Provider MIKE, KHASE A Referring Unavailable MIGHT, VIVIAN W Primary Care Unavailable MIKE, KHASE A Referring Unavailable MIGHT, VIVIAN W Primary Care Unavailable MIKE, KHASE A Referring Unavailable MIGHT, VIVIAN W Primary Care Unavailable MIGHT, VIVIAN W Primary Care Unavailable MKIE, KHASE A Referring Unavailable MIGHT, VIVIAN W Primary Care Unavailable MIKE, KHASE A Referring Unavailable MIKE, KHASE A Referring Unavailable MIGHT, VIVIAN W Primary Care Unavailable LEANDRA DIXON Referring Unavailable MIGHT, VIVIAN W Primary Care Unavailable ROLAN SIM Referring Unavailable MIGHT, VIVIAN W Primary Care Unavailable SHARON DOMINIQUE Attending Unavailable SHARON DOMINIQUE Referring Unavailable MIGHT, VIVIAN W Primary Care Unavailable SAFADI, LEANDRA S Referring Unavailable MIGHT, VIVIAN W Primary Care Unavailable MIKE, KHASE A Referring Unavailable MIGHT, VIVIAN W Primary Care Unavailable SHARON DOMINIQUE Attending Unavailable SHARON DOMINIQUE Referring Unavailable MIGHT, VIVIAN W Primary Care Unavailable MIKE, KHASE A Referring Unavailable MIGHT, VIVIAN W Primary Care Unavailable SAFADI, LEANDRA S Referring Unavailable MIGHT, VIVIAN W Primary Care Unavailable ROLAN SIM Referring Unavailable MIGHT, VIVIAN W Primary Care Unavailable SAFADI, LEANDRA S Referring Unavailable MIGHT, VIVIAN W Primary Care Unavailable SAFADI, LEANDRA S Referring Unavailable MIGHT, VIVIAN W Primary Care Unavailable SAFADI, LEANDRA S Referring Unavailable MIGHT, VIVIAN W Primary Care Unavailable SAFADI, LEANDRA S Referring Unavailable MIGHT, VIVIAN W Primary Care Unavailable MIKE, KHASE A Referring Unavailable MIGHT, VIVIAN W Primary Care Unavailable MIKE, KHASE A Referring Unavailable MIGHT, VIVIAN W Primary Care Unavailable MIKE, KHASE A Referring Unavailable MIGHT, VIVIAN W Primary Care Unavailable SAFADI, LEANDRA S Referring Unavailable MIGHT, VIVIAN W Primary Care Unavailable SUZI BRUCE Referring Unavailable MIGHT, VIVIAN W Primary Care Unavailable SAFADI, LEANDRA S Referring Unavailable MIGHT, VIVIAN W Primary Care Unavailable KARRI MORENO Referring Unavailable MIGHT, VIVIAN W Primary Care Unavailable SAFADI, LEANDRA S Referring Unavailable MIGHT, VIVIAN W Primary Care Unavailable SAFADI, LEANDRA S Referring Unavailable MIGHT, VIVIAN W Primary Care Unavailable SAFADI, LEANDRA S Referring Unavailable MIGHT, VIVIAN W Primary Care Unavailable SAFADI, LEANDRA S Referring Unavailable MIGHT, VIVIAN W Primary Care Unavailable MIGHT, VIVIAN W Primary Care Unavailable PREETHI GARCIA Referring Unavailable SAFADI, LEANDRA S Referring Unavailable MIGHT, VIVIAN W Primary Care Unavailable MIKE, KHASE A Referring Unavailable MIGHT, VIVIAN W Primary Care Unavailable NATHAN ARDON Attending Unavailable NATHAN ARDON Referring Unavailable MIGHT, VIVIAN W Primary Care Unavailable MIKE, KHASE A Referring Unavailable MIGHT, VIVIAN W Primary Care Unavailable MIKE, KHASE A Referring Unavailable MIGHT, VIVIAN W Primary Care Unavailable MIKE, KHASE A Referring Unavailable MIGHT, VIVIAN W Primary Care Unavailable MIKE, MEENAASE A Referring Unavailable MIGHT, VIVIAN W Primary [...] Unavailable MIGHT, VIVIAN W Primary Care Unavailable PREETHI GARCIA Referring Unavailable MIGHT, VIVIAN W Primary Care Unavailable NATHAN ARDON Attending Unavailable NATHAN ARDON Referring Unavailable MIGHT, VIVIAN [...] Care Unavailable MIKE, KHASE A Referring Unavailable SAFADI, LEANDRA S Referring Unavailable MIGHT, VIVIAN W Primary Care Unavailable MIKE, KHASE A Referring Unavailable MIGHT, VIVIAN W Primary Care Unavailable SAFADI, LEANDRA S Referring Unavailable MIGHT, VIVIAN W Primary Care Unavailable SAFADI, LEANDRA S Referring Unavailable MIGHT, VIVIAN W Primary Care Unavailable MIKE, KHASE A Referring Unavailable MIGHT, VIVIAN W Primary Care Unavailable MIGHT, VIVIAN W Primary Care Unavailable NATHAN ARDON Referring Unavailable MIKE, KHASE A Referring Unavailable MIGHT, VIVIAN W Primary Care Unavailable FLORIDA EVERETT Admitting Unavailable FLORIDA EVERETT Attending Unavailable MIGHT, VIVIAN W Primary Care Unavailable MIGHT, VIVIAN W Primary Care Unavailable EMANUEL DANIELLE Admitting Unavailable EMANUEL DANIELLE Attending Unavailable NATHAN ARDON Consulting Unavailable MIKE, KHASE A Referring Unavailable MIGHT, VIVIAN W Primary Care Unavailable MIKE, KHASE A Referring Unavailable MIGHT, VIVIAN W Primary Care Unavailable MIKE, KHASE A Referring Unavailable MIGHT, VIVIAN W Primary Care Unavailable SAFADI, LEANDRA S Referring Unavailable MIGHT, VIVIAN W Primary Care Unavailable SAFADI, LEANDRA S Referring Unavailable MIGHT, VIVIAN W Primary Care Unavailable Chiquis BELT PICKER-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, Rolan Grier Attending Unavailab le [facility] available Might [facility], [facility] Un available Alvord BELT PICKER-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, Rolan Grier Attending Unavailab le Might BELT PICKER-[facility], [facility] Un available Alvord BELT PICKER-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, Rolan D Attending Unavailab le Jez MULLEN, Alexander Lemus Attending Unavailable Might [facility] Un available Mascaro PA-CKarri Attending Unavail able Might [facility] Un available Might [facility] Un available Brock Gaitan MD Attending Unavaila ble Might [facility] Un available Mascaro PA-C, Karri Goldberg Attending Unavail able Might [facility] Un available Mascaro PA-CKarri Attending Unavail able Mascaro PA-C, Karri Goldberg Attending Unavail able Might [facility] Un available Alvord BELT PICKER-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, Rolan Grier Attending Unavailab le Might [facility] Un available Allergies Allergy ClassificationReported Allergen(s)Allergy TypeDate of OnsetReaction(s) FacilityPenicillins (antibiotic) (10 sources)PenicillinsDrug Vmsszpf10-89-8880[facility] (20 sources)PenicillinsPropensity to adverse reactions to edvx25-40-3173NdhhP[place], [place] (20 sources)PenicillinsPropensity to adverse reactions to eywk10-53-7096HbktJLHSpotsylvania [facility] (1 source)PenicillinsDrug allergy (disorder)48-48-4306DolnvmhwgDay[facility] (3 sources)penicillAMINEDrug Fcaehqy08-34-2184TkwcpzgOzwewynxfJ.W. [facility] (1 source)PenicillinsDrug allergy (disorder)59-52-5160[facility] Rep[facility] (1 source)Penicillin; Translations: [penicillin]Drug AllergyFostoria [facility] Medications Current Medications MedicationDrug Class(es)DatesSig (Normalized)Sig (Original)acetaminophen 500 mg oral tablet (20 sources)Start: 00-79-3340kxht 4000 mg by mouth every twenty-four hours1,000 mg, Oral, ONCE, 1 dose, On Tue07/23/25 at 0700, Maximum dose of acetaminophen is 4000 mg from all sources in 24 hours., Pre-op (day of surgery)Start: 85-79-6084evbljqcptmxjb (TYLENOL) tablet 650 mgStart: 78-13-1793spjjuxlehesgf (TYLENOL) tablet 650 mgStart: ,000 mg, Oral, ONCE, 1 dose, On Tue09/14/24 at 0630, Administer 60 minutes prior to surgery., Pre-op (day of surgery)Start: 07-26-2024 End: 18-68-2126noiw 1 tablet by mouth three times dailyacetaminophen (TYLENOL) 500 MG tablet Take 1 tablet by mouth 3 times daily for 14 days 42 tablet ActiveStart: ,000 mg, Oral, EVERY 8 HOURS PRN, Starting on Olena 07/26/24 at 1319, Until Discontinued, Pain Mild (1-3), Maximum dose of acetaminophen is 4000 mg from all sources in 24 hours.Start: ,000 mg, Oral, ONCE, 1 dose, On 07/23/24 at 1245, Administer 60 minutes prior to surgery., Pre-op (day of surgery)Start: 86-50-7910uwxuyblzmsujx (TYLENOL) tablet 650 mg End: 52-58-1664jafv 1 tablet by mouth every six hours as needed for pain acetaminophen (TYLENOL) 500 MG tablet Take 1 tablet by mouth every 6 hours as needed for Pain 07/26/2024 Discontinued (Stop Taking at Discharge)acetaminophen 325 mg / HYDROcodone bitartrate 5 mg oral tablet (20 sources)Opioid AgonistStart: 09-14-2024 End: 05-30-0265WELHYqitpyj-acetaminophen (NORCO) 5-325 MG per tablet Indications: Post-op pain Take 1 tablet by mouth every 6 hours as needed for Pain for up to 7 days. Intended supply: 5 days. Take lowest dose possible to manage pain Max Daily Amount: 4 tablets 28 tablet 09/14/2024 09/21/2024 Active Start: 07-18-2024 End: 66-25-1420LVSYIvxhyhx-acetaminophen (NORCO) 5-325 MG per tablet Indications: Closed dislocation of tarsal joint of left foot, initial encounter , Charcot ankle, left Take 1 tablet by mouth every 4 hours as needed for Pain for up to 5 days. Intended supply: 5 days. Take lowest dose possible to manage pain MaxDaily Amount: 6 tablets 30 tablet 07/18/2024 07/26/2024 Discontinued (Stop Taking at Discharge)Start: 08-06-2022 End: 76-84-7360NARZSwsdqix-acetaminophen (NORCO) 5-325 MG per tablet 1 tablet Start: 04-23-2022 End: 95-32-4028ibbt 1 tablet by mouth twice daily as needed for painHydrocodone- Acetaminophen 5-325 mg tablet Discontinued 1 TAB PO Twice daily as needed for Pain September 21, 2022 1:00am June 24, 2025 12:22pmHYDROcodone- Acetaminophen 5-325 MG Oral for 30 Days Activeacetaminophen 325 mg / oxyCODONE hydrochloride 5 mg oral tablet (2 sources)Opioid AgonistStart: 07-26-2024 End: 50-46-0154igsOIHWXO-acetaminophen (PERCOCET) 5-325 MG per tablet Indications: Post-op pain Take 1 tablet by mouth in the morning and at bedtime for 8 days. Intended supply: 5 days. Take lowest dose possible tomanage pain Max Daily Amount: 2 tablets 16 tablet 07/26/2024 08/03/2024 ActiveStart: 07-24-2024 oxyCODONE-acetaminophen (PERCOCET) 5-325 MG per tablet 1 [id number] 200 actuat albuterol 0.09 mg/actuat metered dose inhaler (20 sources)beta2-Adrenergic AgonistStart: 52-95-2722Buych: 07-25-2024 End: 78-42-7845vgkf 2 puff(s) by mouth four times daily as needed for wheezing albuterol sulfate HFA (PROVENTIL;VENTOLIN;PROAIR) 108 (90 Base) MCG/ACT inhaler Indications: Acute bronchitis, unspecified organism INHALE 2 PUFFS BY MOUTH INTO THE LUNGS 4 TIMES DAILY NEEDED FOR WHEEZING 9 g 2 07/25/2024 04/11/2025 Discontinued (LIST CLEANUP)Start: 16-71-9959Qoqea: 05-09-2024 End: 85-02-9138owfk 2 puff(s) by mouth four times daily for wheezingalbuterol sulfate HFA (PROVENTIL;VENTOLIN;PROAIR) 108 (90 Base) MCG/ACT inhaler Indications: Acute bronchitis, unspecified organism inhale 2 puffs by mouth and INTO THE LUNGS four times a day if needed for wheezing 8.5 g 2 05/09/2024 07/25/2024 DiscontinuedStart: 61-01-4260aqpn 2 puff(s) by mouth four times daily for wheezingalbuterol sulfate HFA (PROVENTIL;VENTOLIN;PROAIR) 108 (90 Base) MCG/ACT inhaler Indications: Acute bronchitis, unspecified organism inhale 2 puffs by mouth and INTO THE LUNGS four times a day if needed for wheezing 8.5 g 2 08/24/2023 ActiveStart: 61-14-6605zttdgtdlv (PROVENTIL) (2.5 MG/3ML) 0.083% nebulizer solution 2.5 mgStart: 06-11-2023 End: .5 mg, Nebulization, EVERY 2 HOURS PRN, Starting on 06/11/23 at 0043, Until 06/11/23 at 0345, Wheezing Initiate RT Bronchodilator Protocol: YesStart: 97-89-9296miln 2 puff(s) by mouth four times daily for wheezingalbuterol sulfate HFA (PROVENTIL;VENTOLIN;PROAIR) 108 (90 Base) MCG/ACT inhaler Indications: Acute bronchitis, unspecified organism inhale 2 puffs by mouth and INTO THE LUNGS four times a day if needed for wheezing 8.5 g 2 03/25/2023 ActiveStart: 09-21-2022 End: 28-58-3757ilph 1 puff(s) by inhalation four times daily as needed for wheezingAlbuterol Sulfate 90 mcg/actuation HFA aerosol inhaler Discontinued 2 PUFF INHALATION Four times daily as needed for Shortness Of Breath Or Wheezing September 21, 2022 1:00am June 24, 2025 12:16pmStart: 02-59-6830rqmi 2 puff(s) by mouth four times daily for wheezingalbuterol sulfate HFA (PROVENTIL;VENTOLIN;PROAIR) 108 (90 Base) MCG/ACT inhaler Indications: Acute b ronchitis, unspecified organism inhale 2 puffs by mouth and INTO THE LUNGS four times a day if needed for wheezing 8.5 g 2 08/23/2022 ActiveStart: 08-03-2021 take 2 puff(s) by inhalation four times daily as needed for wheezingalbuterol sulfate HFA (VENTOLIN HFA) 108 (90 Base) MCG/ACT inhaler Indications: Acute bronchitis, unspecified organism Inhale 2 puffs into the lungs 4 times daily as needed for Wheezing 1 each 1 08/03/2021 ActiveStart: 06-04-6336yniq 2 puff(s) by inhalation four times daily as needed for wheezingalbuterol sulfate HFA (VENTOLIN HFA) 108 (90 Base) MCG/ACT inhaler Indications: Acute bronchitis, un specified organism Inhale 2 puffs into the lungs 4 times daily as needed for Wheezing 1 Inhaler 0 04/28/2020 ActiveStart: 62-40-9910sdnv 2 puff(s) by inhalation four times daily as needed for wheezingalbuterol sulfate HFA (VENTOLIN HFA) 108 (90 Base) MCG/ACT inhaler Indications: Acute bronchitis, un specified organism Inhale 2 puffs into the lungs 4 times daily as needed for Wheezing 1 Inhaler 0 04/28/2020 Activetake 1 puff(s) by inhalation every four hours as neededAlbuterol Sulfate HFA 108 (90 Base) MCG/ACT 1 puff as needed Inhalation every 4 hrs Activealbuterol 0.833 mg/ml / ipratropium bromide 0.167 mg/ml inhalation solution (3 sources)Anticholinergic, beta2-Adrenergic AgonistStart: 87-03-0243ojpzuqbwelt 0.5 mg-albuterol 2.5 mg (DUONEB) nebulizer solution 1 DoseStart: 06-11-2023 End: 98-67-7099wnvvhtzfjpa 0.5 mg-albuterol 2.5 mg (DUONEB) nebulizer solution 1 Dosealendronic acid 70 mg oral tablet (20 sources)BisphosphonateStart: 25-60-2899osxivpbwjvz (FOSAMAX) 70 MG tablet Indications: Other osteoporosis without current pathological fracture Take 1 tablet by mouth every 7 days 14 tablet 05/28/2025 ActiveStart: 05-16-2025 alendronate (FOSAMAX) 70 MG tablet Indications: Other osteoporosis without current pathological fracture Take 1 tablet by mouth every 7 days Take with a full glass of water upon arising for the day. Consume on an empty stomach at least 30 minutes before the first food, beverage, or medication. Stayupright (do not lie down) for at least 30 minutes. Do not crush or break. 4 tablet 5 05/16/2025 Activealuminum chloride 200 mg/ml topical solution (13 sources)Start: 69-47-7582yypmourb chloride (DRYSOL) 20 % external solution Indications: Gustatory sweating Apply topically nightly. 60 mL 2 09/28/2023 Activeaspirin 81 mg delayed release oral tablet (20 sources)Platelet Aggregation Inhibitor, Nonsteroidal Anti-inflammatory Drug Start: 07-07-0179mysl 1 tablet by mouth once dailyaspirin 81 MG EC tablet Take 1 tablet by mouth daily 30 tablet 3 06/01/2025 ActiveStart: 54-15-4131rqyy 1 tablet by mouth once dailyaspirin 81 MG EC tablet Take 1 tablet by mouth daily 30 tablet 3 06/01/2025 ActiveStart: 55-25-1285nics 81 mg by mouth once daily81 mg, Oral, DAILY, First dose on Tue05/31/25 at 0900, Until Discontinued, Do not crush or break.Start: 61-06-1111kzxq 81 mg by mouth once daily81 mg, Oral, DAILY, First dose on 09/15/24 at 1100, Until DiscontinuedStart: 09-14-2024 End: 66-25-3783wvav 325 mg by mouth once mg, Oral, DAILY, First dose on Olena 05/30/25 at 1500, Until Discontinued, Do not crush or break.Start: 07-24-2024 take 81 mg by mouth once daily81 mg, Oral, DAILY, First dose (after last modification) on Tue07/24/24 at 1200, Until DiscontinuedStart: 99-66-6178nsrx 81 mg by mouth once daily81 mg, Oral, DAILY, First dose on 06/11/23 at 0900, Until Discontinuedtake 1 tablet by mouth once dailyaspirin 81 MG tablet Take 1 tablet by mouth daily Activeatorvastatin 80 mg oral tablet (20 sources)HMG-CoA Reductase InhibitorStart: 41-30-5838Dexivaepchco 80 mg tablet Active 40 MG PO Daily at bedtime June 24, 2025 12:17pm Complies with drug therapyStart: 67-63-4770mxfr 1 tablet by mouth once dailyatorvastatin (LIPITOR) 40 MG tablet Take 1 tablet by mouth daily 90 tablet 3 05/28/2025 ActiveStart: 05-16-2024 End: 20-46-2545golq 1 tablet by mouth once dailyatorvastatin (LIPITOR) 40 MG tablet Take 1 tablet by mouth daily 90 tablet 3 05/23/2025 ActiveStart: 66-94-5684kejj 80 mg by mouth once daily80 mg, Oral, NIGHTLY, First dose on 06/11/23 at 0100, Until DiscontinuedStart: 08-24-2018 End: 43-72-2144gwpg 1 tablet by mouth once dailyatorvastatin (LIPITOR) 80 MG tablet Take 1 tablet by mouth daily 09/11/2024 Activeazelastine hydrochloride 0.137 mg/actuat metered dose nasal spray (6 sources)Histamine-1 Receptor AntagonistStart: 94-73-2152Zxgcqpxhbv 137 mcg (0.1 %) spray,non-aerosol Active INTRANASAL June 24, 2025 12:00am Complies with drug therapyazelastine (ASTELIN) 0.1 % nasal spray 1 spray by Nasal route in the morning and at bedtime Activebetamethasone 0.0005 mg/mg topical ointment (20 sources)CorticosteroidStart: 03-24-2022 End: 00-62-1945yyehitrxpyxvd dipropionate (DIPROLENE) 0.05 % ointment Indications: Ear itching Apply topically daily. 15 g 0 03/24/2022 06/14/2023 Discontinued (Stop Taking at Discharge)Betamethasone Dipropionate 0.05 % External for 10 Days Activebetamethasone 0.5 mg/ml / clotrimazole 10 mg/ml topical cream (20 sources)Azole Antifungal, CorticosteroidStart: 03-62-0406gvsyeautyqzr- betamethasone (LOTRISONE) 1-0.05 % cream Indications: Vaginal yeast infection APPLY TWICE A DAY NEEDED FOR VULVAR ITCHING NOT TO EXCEED 6 WEEKS CONTINUOUS USAGE 15 g 3 09/21/2018 Activecalcium chloride 0.0014 meq/ml / potassium chloride 0.004 meq/ml / sodium chloride 0.103 meq/ml / sodium lactate 0.028 meq/ml injectable solution (2 sources)Start: 76-14-7916NaiqeEXQsjq, at 100 mL/hr, CONTINUOUS, Starting on Tue07/23/25 at 0700, Pre-op (day of surgery)Start: 76-18-4555sykzacuo ringers IV soln infusionceFAZolin (ANCEF) 2000 mg in 20 mL IV syringe (2 sources)Start: ,000 mg, IntraVENous, EVERY 8 HOURS, First dose on Tue09/14/24 at 1600, Administer over 5 mins.Start: ,000 mg, IntraVENous, EVERY 8 HOURS, First dose on Tue07/24/24 at 0000, Administer over 5 mins.cefdinir 300 mg oral capsule (1 source)Cephalosporin AntibacterialStart: 05-17-2024 End: 82-68-2880hwhd 1 capsule by mouth twice dailycefdinir (OMNICEF) 300 MG capsule Indications: Acute non-recurrent pansinusitis , Non-recurrent acute suppurative otitis media of left ear without spontaneous rupture of tympanic membrane Take 1 capsule by mouth 2 times daily for 10 days 20 capsule 05/17/2024 05/27/2024 ActivecefTRIAXone (ROCEPHIN) 1,000 mg in sodium chloride 0.9 % 50 mL IVPB (mini-bag) (2 sources)Start: 06-11-2023 End: 31,000 mg, IntraVENous, EVERY 24 HOURS, 5 doses, First dose on Tue06/11/23 at 2300, Last dose on Tue06/15/23 at 2300 Antimicrobial Indications: Pneumonia (CAP) CAP duration of therapy: 5 daysStart: 06-10-2023 End: 36-97-9333vcaPOARBucy (ROCEPHIN) 1,000 mg in sodium chloride 0.9 % 50 mL IVPB (mini-bag)celecoxib 100 mg oral capsule (11 sources)Nonsteroidal Anti-inflammatory DrugStart: 53-33-9744pxsg 1 capsule by mouth twice dailycelecoxib (CELEBREX) 100 MG capsule Take 1 capsule by mouth 2 times daily 180 capsule 1 03/18/2021 ActiveStart: 80-87-2246lefg 1 capsule by mouth twice dailycelecoxib (CELEBREX) 100 MG capsule Indications: Multiple joint pain Take 1 capsule by mouth 2 times daily 180 capsule 1 09/16/2020 Active cetirizine hydrochloride 10 mg oral tablet (19 sources)Histamine-1 Receptor AntagonistStart: 08-07-3822umzg 1 tablet by mouth once dailycetirizine (ZYRTEC) 10 MG tablet Take 1 tablet by mouth once daily 90 tablet 3 07/28/2025 ActiveStart: 06-12-2025 End: 24-00-0980dqno 1 tablet by mouth once dailycetirizine (ZYRTEC) 10 MG tablet Take 1 tablet by mouth daily 90 tablet 3 06/12/2025 ActiveStart: 27-59-161143 mg, Oral, DAILY, First dose on Tue05/30/25 at 0900, Until Discontinued, Substituted for Fexofenadine (JODIE).Start: 71-57-0707itxb 10 mg by mouth once daily10 mg, Oral, DAILY, First dose on Tue09/15/24 at 0900, Until Discontinued, Substituted for Levocetirizine (XYZAL).Start: 86-27-2660yyzn 10 mg by mouth once daily10 mg, Oral, NIGHTLY, First dose (after last modification) on Tue07/24/24 at 2100, Until Discontinued, Substituted for Levocetirizine (XYZAL).Start: 05-81-6155svtrpsjusz (ZYRTEC) tablet 10 mgcholecalciferol 0.025 mg oral tablet (1 source)Vitamin DStart: 09-14-2024 End: 45,000 Units, Oral, DAILY, 7 doses, First dose on Tue09/14/24 at 1400, Last dose on [place] 09/20/24 [id number], Labeling may look different. 25 [id number]=[id number] Units. Please double check dosages.ciprofloxacin 3 mg/ml / dexamethasone 1 mg/ml otic suspension (3 sources)Corticosteroid, Quinolone AntimicrobialStart: 01-17-2025 End: 77-13-4133mcecryxvyewri-dexAMETHasone (CIPRODEX) 0.3-0.1 % otic suspension Indications: Acute diffuse otitis externa of both ears Place 4 drops into both ears 2 times daily for 10 days 7.5 mL 01/17/2025 01/27/2025 Activecodeine phosphate 2 mg/ml / guaiFENesin 20 mg/ml oral solution (3 sources)Opioid AgonistStart: 37-11-6890iepkYBLndwr-codeine (GUAIFENESIN AC) 100-10 MG/5ML liquid 5 mLStart: 85-75-1289ptdo 10 mL by mouth every four hours before mealtime for coughguaiFENesin-codeine (GUAIFENESIN AC) 100-10 MG/5ML liquid take 10 milliliters by mouth every 4 hours if needed for cough fo... (REFER TO PRESCRIPTION NOTES). 0 05/31/2023 ActiveContinuous Blood Gluc Sensor (FREESTYLE AUTUMN 14 DAY SENSOR) MISC (20 sources)Start: 56-61-2632Xlqbdcuxbx Blood Gluc Sensor (FREESTYLE AUTUMN 14 DAY SENSOR) MISC 01/28/2021 SuspendedStart: 37-89-2315Dbzuwosrib Blood Gluc Sensor (FREESTYLE AUTUMN 14 DAY SENSOR) MISC 01/28/2021 ActiveStart: 01-28-2021 Continuous Blood Gluc Sensor (FREESTYLE AUTUMN 14 DAY SENSOR) MISCStart: 36-78-2879Pogplkqhhg Blood Gluc Sensor (FREESTYLE AUTUMN 14 DAY SENSOR) MISC apply 1 SENSOR TO THE BACK OF UPPER ARM REMOVE AND REPLACE every ... (REFER TO PRESCRIPTION NOTES). 0 01/28/2021 ActiveCPAP Machine MISC (20 sources)CPAP Machine MISC by Does not apply route SuspendedCPAP Machine MISC by Does not apply route ActiveCPAP Machine MISC by Does not apply route 0 ActiveCPAP Machine MISC by Does not apply route 0 Suspendeddiclofenac sodium 75 mg delayed release oral tablet (20 sources)Nonsteroidal Anti-inflammatory DrugStart: 13-66-5347gzqtmbfrfw (VOLTAREN) 75 MG EC tablet 06/18/2021 Activedicyclomine hydrochloride 20 mg oral tablet (17 sources)AnticholinergicStart: 66-51-5661vnls 1 tablet by mouth three times dailydicyclomine (BENTYL) 20 MG tablet Indications: Irritable bowel syndrome with diarrhea Take 1 tabletby mouth three times daily 270 tablet 0 09/10/2019 ActiveStart: 28-39-5121vtsr 1 tablet by mouth three times dailydicyclomine (BENTYL) 20 MG tablet Indications: Irritable bowel syndrome with diarrhea Take 1 tabletby mouth three times daily 270 tablet 0 03/23/2019 Activedoxycycline hyclate 100 mg oral tablet (20 sources)Tetracycline-class DrugStart: 11-28-2024 End: 11-74-4554svng 1 tablet by mouth twice dailydoxycycline hyclate (VIBRA- TABS) 100 MG tablet Indications: Acute recurrent pansinusitis Take 1 tablet by mouth 2 times daily for 10 days 20 tablet 11/28/2024 12/08/2024 ActiveStart: 09-15-2024 End: 35-16-5899hyvi 1 tablet by mouth twice dailydoxycycline hyclate (VIBRA- TABS) 100 MG tablet Take 1 tablet by mouth 2 times daily for 7 days 14 tablet 09/15/2024 09/22/2024 ActiveStart: 07-26-2024 End: 68-93-3523fedw 1 tablet by mouth once dailydoxycycline hyclate (VIBRA-TABS) 100 MG tablet Take 1 tablet by mouth daily for 10 days 10 tablet 07/26/2024 08/05/2024 ActiveStart: 09-23-2022 End: 02-81-2593rwjg 1 tablet by mouth twice dailydoxycycline hyclate (VIBRA- TABS) 100 MG tablet Indications: Acute non-recurrent pansinusitis Take 1tablet by mouth 2 times daily for 10 days 20 tablet 0 09/23/2022 10/03/2022 Active Start: 98-78-6153ehhn 1 tablet by mouth twice dailydoxycycline hyclate (VIBRA- TABS) 100 MG tablet Take 1 tablet by mouth 2 times daily 20 tablet 0 06/09/2022 ActiveStart: 10-17-2019 End: 84-54-8197akvo 1 tablet by mouth twice dailydoxycycline hyclate (VIBRA- TABS) 100 MG tablet Indications: Acute maxillary sinusitis, recurrence not specified Take 1 tablet by mouth 2 times daily for 7 days 14 tablet 0 10/17/2019 10/24/2019 Active2 ml droperidol 2.5 mg/ml injection (1 source)Dopamine-2 Receptor AntagonistStart: .625 mg, IntraVENous, ONCE PRN, 1 dose, Starting on Tue07/23/25 at 0838, Until Discontinued, Nausea, Initial antiemetic therapy., PACU onlyDULoxetine 60 mg delayed release oral capsule (20 sources)Serotonin and Norepinephrine Reuptake InhibitorStart: 84-29-0724jrya 1 capsule by mouth once dailyDULoxetine (CYMBALTA) 60 MG extended release capsule Take 1 capsule by mouth nightly 01/29/2021 ActiveStart: 77-54-6214xcit 1 capsule by mouth once daily in the eveningDULoxetine (CYMBALTA) 30 MG extended release capsule take 1 capsule by mouth every evening 0 07/02/2020 Active empagliflozin 10 mg oral tablet (20 sources)Sodium-Glucose Cotransporter 2 InhibitorStart: 66-74-8795JUZMHNSCS 10 MG tablet 06/12/2024 ActiveStart: 96-80-6237djmw 10 mg by mouth three times daily10 mg, Oral, DAILY, First dose on 06/11/23 at 0900, Until Discontinued Indication of Use: Heart Failure (preserved EF) Note: Discontinuation of SGLT2 inhibitor therapy 3 days prior to surgery or major procedures is recommended given the risk for euglycemic diabetic ketoacidosis.Start: 28-77-3757PQLCREAQT 10 MG tablet 1 tablet daily 06/12/2024 Activeerythromycin 0.005 mg/mg ophthalmic ointment (7 sources)Macrolide, Macrolide AntimicrobialStart: 07-32-9832nozve 3.5 g into the eye(s) every six hourserythromycin (ROMYCIN) 5 MG/GM ophthalmic ointment Indications: Acute bacterial conjunctivitis of right eye Place into the right eye every 6 hours 3.5 g 0 09/23/2022 Activeestradiol 1 mg oral tablet (13 sources)EstrogenStart: 40-15-4503sonr 1 tablet by mouth once dailyestradiol (ESTRACE) 1 MG tablet Take 1 tablet by mouth daily 30 tablet 3 12/06/2023 Active fenofibrate 145 mg oral tablet (20 sources)Peroxisome Proliferator Receptor alpha AgonistStart: 34-22-0892661 mg, Oral, DAILY, First dose on Tue09/15/24 at 1100, Until Discontinued, Substituted for Fenofibrate (Non-Formulary Dose).Start: 36-88-8300418 mg, Oral, Nightly, First dose (after last modification) on Tue07/24/24 at 2100, Until Discontinued, Substituted for Fenofibrate (Non-Formulary Dose).Start: 08-23-2023 End: 20-78-6179vtke 1 tablet by mouth once dailyfenofibrate (TRICOR) 145 MG tablet Take 1 tablet by mouth daily 90 tablet 3 05/23/2025 ActiveStart: 22-31-9848oaxsgyydvoa (TRIGLIDE) tablet 160 mgStart: 02-23-2019 End: 27-17-297407 mg, Oral, DAILY, First dose on Tue05/30/25 at 2100, Until Discontinued, Substituted for Fenofibrate (Non-Formulary Dose).fexofenadine hydrochloride 180 mg oral tablet (20 sources)Histamine-1 Receptor AntagonistStart: 04-30-2025 End: 64-53-9889snmq 1 tablet by mouth once daily in the morningfexofenadine (JODIE) 180 MG tablet Take 1 tablet by mouth every morning 04/30/2025 Active take 30 mg by mouth once dailyFEXOFENADINE HCL PO Take 30 mg by mouth daily Activefluocinonide 0.5 mg/ml topical cream (1 source)CorticosteroidStart: 16-05-1870ljcjmuwdpsah (LIDEX) 0.05 % cream Indications: Rhus dermatitis Apply topically 2 times daily. 1 Tube 0 03/12/2020 ActiveFLUoxetine 40 mg oral capsule (18 sources)Serotonin Reuptake InhibitorStart: 94-13-0865gwrm 1 capsule by mouth once dailyFLUoxetine (PROZAC) 40 MG capsule Take 1 capsule by mouth daily 90 capsule 1 10/31/2019 ActiveStart: 72-68-6596ciyk 1 capsule by mouth once daily FLUoxetine (PROZAC) 40 MG capsule take 1 capsule by mouth once daily 90 capsule 1 04/23/2019 Activefluticasone propionate 0.05 mg/actuat metered dose nasal spray (20 sources)CorticosteroidStart: 53-06-4602Cpbvm: 68-58-7047cehd 2 spray(s) nasal route once dailyfluticasone (FLONASE) 50 MCG/ACT nasal spray Indications: Seasonal allergic rhinitis due to pollen Use 2 spray(s) in each nostril once daily 16 g 5 09/28/2024 ActiveStart: 95-04-7855xvbc 2 spray(s) nasal route once daily as needed2 spray, Each Nostril, NIGHTLY PRN, Starting on e 07/24/24 at 1145, Until Discontinued, RhinitisStart: 56-00-6705kwbp 2 spray(s) nasal route once dailyfluticasone (FLONASE) 50 MCG/ACT nasal spray Indications: Seasonal allergic rhinitis due to pollen instill 2 sprays into each nostril once daily 48 g 3 09/23/2023 ActiveStart: 19-07-3341xcxp 2 spray(s) nasal route once daily2 spray, Each Nostril, DAILY, First dose on 06/11/23 at 0900, Until DiscontinuedStart: 85-54-7775Uxppnvitqyb Propionate 50 mcg/actuation spray,suspension Active 2 SPRAY INTRANASAL Daily September 21, 2022 1:00am Complies with drug therapyStart: 45-99-6461xadu 2 spray(s) nasal route once dailyfluticasone (FLONASE) 50 MCG/ACT nasal spray Indications: Seasonal allergic rhinitis due to pollen 2 sprays by Each Nostril route daily 3 each 1 06/09/2022 ActiveStart: 25-39-8941iaop 2 spray(s) nasal route once dailyfluticasone (FLONASE) 50 MCG/ACT nasal spray Indications: Seasonal allergic rhinitis due to pollen 2 sprays by Each Nostril route daily 3 Bottle 1 06/24/2020 ActiveStart: 63-15-0070gdjl 2 spray(s) nasal route once dailyfluticasone (FLONASE) 50 MCG/ACT nasal spray Indications: Ear fullness, bilateral 2 sprays by Each Nostril route daily 3 Bottle 1 07/26/2019 ActiveFluticasone Propionate 50 MCG/ACT Nasal for 30 Days ActiveFluticasone Propion-Salmeterol (20 sources)Corticosteroid, beta2-Adrenergic AgonistStart: 27-66-8478Hprzyjcdqgw Propion-Salmeterol (Advair Diskus) 100-50 mcg/dose blister with device Active 1 INH INHALATION Twice daily June 24, 2025 12:00am Complies with drug therapyStart: 83-69-5095nsqz 1 puff(s) by inhalation at bedtimefluticasone- salmeterol (ADVAIR) 500-50 MCG/ACT AEPB diskus inhaler Inhale 1 puff into the lungs in the morning and at bedtime 04/30/2025 Active End: 31-54-1036zpyj 1 puff(s) by inhalation in the morningfluticasone-salmeterol (ADVAIR) 100-50 MCG/ACT AEPB diskus inhaler Inhale 1 puff into the lungs in the morning and 1 puff in the evening. 05/14/2025 Discontinued (LIST CLEANUP) FreeStyle Autumn 14 Day Sensor - (2 sources)FreeStyle Autumn 14 Day Sensor - apply 1 SENSOR TO THE BACK OF UPPER ARM REMOVE AND REPLACE every ... (REFER TO PRESCRIPTION NOTES). for 28 Active furosemide 20 mg oral tablet (20 sources)Loop DiureticStart: 21-53-8579gtqh 1 tablet by mouth once daily furosemide (LASIX) 20 MG tablet Indications: History of syncope , Essential hypertension , Tobacco abuse , Mixed hyperlipidemia , SOB (shortness of breath) , Bilateral leg edema Take 1 tablet by mouth daily 90 tablet 3 05/28/2025 Active Start: 06-04-2024 End: 45-71-1817fopz 1 tablet by mouth once dailyfurosemide (LASIX) 20 MG tablet Indications: History of syncope , Essential hypertension , Tobacco abuse , Mixed hyperlipidemia , SOB (shortness of breath) , Bilateral leg edema Take 1 tablet by mouth daily 90 tablet 3 05/23/2025 ActiveStart: 05-16-2023 End: 55-94-7384lzou 1 tablet by mouth once dailyfurosemide (LASIX) 20 MG tablet Indications: History of syncope , Essential hypertension , Tobacco abuse , Mixed hyperlipidemia Take 1 tablet by mouth daily 90 tablet 3 05/16/2023 05/15/2024 ActiveStart: 09-21-2022 End: 17-73-2798Vkenhnnohr 20 mg tablet Discontinued 20 MG PO Q48H September 21, 2022 1:00am June 24, 2025 12:19pmStart: 18-69-6986wcio 1 tablet by mouth once dailyfurosemide (LASIX) 20 MG tablet Indications: Lower leg edema take 1 tablet by mouth once daily 90 tablet 1 09/20/2022 ActiveStart: 78-54-6581slix 1 tablet by mouth once dailyfurosemide (LASIX) 20 MG tablet Indications: Lower leg edema Take 1 tablet by mouth daily 90 tablet1 03/24/2022 ActiveglipiZIDE er 10 mg 24 hr extended release oral tablet (20 sources)SulfonylureaStart: 64-48-4714qhbt 2 tablets by mouth once daily glipiZIDE (GLUCOTROL XL) 10 MG extended release tablet Indications: Diabetes mellitus type 2 with complications, uncontrolled (HCC) Take 2 tablets by mouth daily 180 tablet 1 12/31/2019 ActiveStart: 35-84-4625tnlh 2 tablets by mouth once dailyglipiZIDE (GLUCOTROL XL) 10 MG extended release tablet Indications: Diabetes mellitus type 2 with complications, uncontrolled (HCC) Take 2 tablets by mouth daily 180 tablet 0 09/10/2019 ActiveStart: 31-21-0108owek 2 tablets by mouth once dailyglipiZIDE (GLUCOTROL XL) 10 MG extended release tablet Indications: Diabetes mellitus type 2 with complications, uncontrolled (HCC) Take 2 tablets by mouth daily 60 tablet 3 05/09/2019 Activeglucagon (rdna) 1 mg injection (4 sources)Antihypoglycemic AgentStart: mg, SubCUTAneous, PRN, Starting on Tue09/14/24 at 1622, Until Discontinued, Low blood sugar, Blood glucose LESS THAN 70 mg/dL and patient NOT ALERT or NPO and does not have IV access., After administration, attempt intravenous access and start dextrose 10% at 100 mL/hr. Repeat blood glucose in 15 minutes x 2 and notify provider. Reconstitute powder for injection by adding 1 mL of meat smoker-supplied sterile diluent or sterile water for injection to a vial containing 1 mg of the drug, to provide solutions containing 1 mg/mL. Shake vial gently to dissolve. Start: 09-77-2511Nqtcd: 03-92-7497kowc 1 mL intravenously every hour1 mg, IntraMUSCular, PRN, Starting on 06/11/23 at 1616, Until Discontinued, Low blood sugar, Blood glucose less than 70 mg/dL and patient NOT ALERT or NPO and does not have IV access. After administration, attempt intravenous access and start D5W at 100 mL/hr. Repeat blood glucose in 15 minutes x2 and notify provider.Start: 76-70-5004tlpkuv 1 mg by subcutaneous injection every hour as needed1 mg, SubCUTAneous, PRN, Starting on 06/11/23 at 0043, Until Discontinued, Low blood sugar, Blood glucose LESS THAN 70 mg/dL and patient NOT ALERT or NPO and does not have IV access. After administration, attempt intravenous access and start dextrose 10% at 100 mL/hr. Repeat blood glucose in 15 minutes x 2 and notify provider.Glucose (12 sources)Start: 90-74-2233GwxpyJIHrxz, at 100 mL/hr, CONTINUOUS PRN, if blood [...] mg/dL after 60 minutes, discontinue dextrose 10% infusion.Start: 06-30-9368nwrepzak bolus 10% 125 mLStart: 36-71-742169 g (4 tablet), Oral, PRN, Starting on [...] glucose remains LESS THAN 70 mg/dL, notify provider.Start: 67-26-0999Ohlvr: 90-61-2845uxkrzoyo bolus 10% 125 mLStart: 02-04-2735Geyge: 64-50-2640fnooscyi bolus 10% 125 mL Start: 50-27-518529 g (4 tablet), Oral, PRN, Starting on 06/11/23 at 1616, Until Discontinued, Low blood sugar Ifblood glucose is LESS THAN 70 mg/dL and patient is alert and tolerating oral. Give 4 tablets (16g) Repeat blood glucose in 15 minutes. If blood glucose is LESS THAN 70 mg/dL, repeat treatment and recheck blood glucose in 15 minutes x 2. If blood glucose remains LESS THAN 70 mg/dL,notify provider.Start: 49-39-0093jhzi 1 mL intravenously every hourIntraVENous, at 100 mL/hr, CONTINUOUS PRN, if blood glucose remains LESS THAN 70 mg/dL after 2 dextrose 10% intravenous boluses or administration of glucagon, Starting on 06/11/23 at 1616 If bloodglucose fails to stabilize after 2 dextrose 10% intravenous boluses or glucagon administration, start dextrose 10% infusion at 100 mL/hour and repeat blood glucose at 30 and 60 minutes. If blood glucose is GREATER THAN 70 mg/dL after 60 minutes, discontinue dextrose 10% infusion.Start: 31-64-2608lbxqmtlq bolus 10% 125 mLStart: 17-18-428986 g (4 tablet), Oral, PRN, Starting on 06/11/23 at 0043, Until Discontinued, Low blood sugar Ifblood glucose is LESS THAN 70 mg/dL and patient is alert and tolerating oral. Give 4 tablets (16g) Repeat blood glucose in 15 minutes. If blood glucose is LESS THAN 70 mg/dL, repeattreatment and recheck blood glucose in 15 minutes x 2. If blood glucose remains LESS THAN 70 mg/dL,notify provider.12 hr guaiFENesin 600 mg extended release oral tablet (3 sources)Start: 06-11-2023 End: 56-09-8513wbcp 1 tablet by mouth twice dailyguaiFENesin (MUCINEX) 600 MG extended release tablet Take 1 tablet by mouth 2 times daily for 7 days 14 tablet 0 06/14/2023 06/21/2023 ActiveHomeopathic Products (PROSACEA EX) (17 sources)Homeopathic Products (PROSACEA EX) Apply topically 0 Active hydrocortisone 10 mg/ml / neomycin 3.5 mg/ml / polymyxin b 20211 unt/ml otic solution (3 sources)Aminoglycoside Antibacterial, Polymyxin-class Antibacterial, CorticosteroidStart: 11-28-2024 End: 96-19-3535gorkvlhm-polymyxin-hydrocortisone (CORTISPORIN) 3.5-32251-[address] 4 drops into the left ear 3 times daily for 10 days 10 mL 11/28/2024 12/08/2024 ActivelevoFLOXacin 750 mg oral tablet (2 sources)Quinolone AntimicrobialStart: 06-14-2023 End: 94-33-7850rmlk 1 tablet by mouth once dailylevoFLOXacin (LEVAQUIN) 750 MG tablet Take 1 tablet by mouth daily for 7 days 7 tablet 0 / Activeloratadine 10 mg oral capsule (18 sources)take 1 capsule by mouth once dailyloratadine (CLARITIN) 10 MG capsule Take 10 mg by mouth daily 0 Nnaqok33 ml magnesium sulfate 40 mg/ml injection (2 sources)Start: ,000 mg, IntraVENous, at 25 mL/hr, Administer over 2 Hours, PRN, Other, Magnesium Replacement, Starting on Tue09/14/24 at 1124, Mag Lab Replacement Action 1.4-1.6 mg/dL 2,000 mg Total Dose Given as1,000 mg IVPB x 2 doses or 2,000 [...] Patients with CrCl less than 30ml/min Start: ,000 mg, IntraVENous, at 25 mL/hr, Administer over 2 Hours, PRN, Other, Magnesium Replacement, Starting on Tue07/23/24 at 1845, Mag Lab Replacement Action 1.4-1.6 mg/dL 2,000 mg Total Dose Given as1,000 mg IVPB x 2 doses or 2,000 [...] meclizine hydrochloride 25 mg oral tablet (2 sources)AntiemeticStart: 07-13-2019 End: 62-11-6432ozjm 1 tablet by mouth three times daily as needed for dizziness meclizine (ANTIVERT) 25 MG tablet Indications: Vertigo Take 1 tablet by mouth 3 times daily as needed for Dizziness 30 tablet 0 07/13/2019 07/23/2019 Active methocarbamol 500 mg oral tablet (20 sources)Muscle RelaxantStart: 05-30-2025 End: 97-05-4434czeu 1 tablet by mouth three times dailymethocarbamol (ROBAXIN) 500 MG tablet Take 1 tablet by mouth 3 times daily 90 tablet 3 05/31/2025 Active Start: 97-51-7215jryw 500 mg by mouth four times mg, Oral, 4 TIMES DAILY, First dose on 09/15/24 at 1300, Until DiscontinuedmethylPREDNISolone 4 mg oral tablet (3 sources)CorticosteroidStart: 37-70-7072hhwrwlPKNLHECaynkx (MEDROL DOSEPACK) 4 MG tablet TAKE BY MOUTH DIRECTED ON INSIDE OF PACKAGE 06/21/2024 Active Start: 09-59-8479kbdzcbUUZBFZQyyqqt sodium succ (SOLU-MEDROL) injection 40 mg24 hr metoprolol succinate 25 mg extended release oral tablet (20 sources)beta-Adrenergic BlockerStart: 81-61-7042Yrbletaaop Succinate 25 mg tablet extended release 24 hr Active 50 MG PO Twice daily June 24, 2025 12:18pm Complies with drug therapyStart: 66-03-1577kzfi 1 tablet by mouth once daily before breakfastmetoprolol succinate (TOPROL XL) 50 MG extended release tablet Indications: History of syncope , Essential hypertension , Tobacco abuse , Mixed hyperlipidemia , SOB (shortness of breath) , Bilateral leg edema Take 1 tablet by mouth every morning (before breakfast) 90 tablet 3 11/13/2024 Active Start: 99-58-0851Sviwp: 85-58-8200wuqu 1 tablet by mouth in the evening metoprolol succinate (TOPROL XL) 25 MG extended release tablet Take 1 tablet by mouth in the evening 90 tablet 3 07/31/2024 ActiveStart: 82-49-6277ialc 75 mg by mouth once daily75 mg, Oral, DAILY, First dose on Tue07/24/24 at 0900, Until Discontinued, Do not crush or chew.Start: 07-53-2917xxlw 1 tablet by mouth once dailymetoprolol succinate (TOPROL XL) 50 MG extended release tablet Indications: History of syncope , Essential hypertension , Tobacco abuse , Mixed hyperlipidemia , SOB (shortness of breath) , Bilateral leg edema Take 1 tablet by mouth daily 90 tablet 3 07/05/2024 ActiveStart: 19-07-5157symp 1 tablet by mouth once daily, then take 1 tablet by mouth once daily in the evening metoprolol succinate (TOPROL XL) 25 MG extended release tablet Take 1 tablet by mouth daily Take 1 tablet every evening. 90 tablet 3 08/04/2023 ActiveStart: 10-07-1348fetg 1 tablet by mouth once daily in the morningmetoprolol succinate (TOPROL XL) 50 MG extended release tablet Take 1 tablet by mouth daily Take 50mg in the morning 90 tablet 3 08/04/2023 ActiveStart: 02-23-2019 End: 28-62-0333beha 1 tablet by mouth at bedtimemetoprolol succinate (TOPROL XL) 25 MG extended release tablet Indications: History of syncope , Essential hypertension , Tobacco abuse , Mixed hyperlipidemia Take 1 tablet by mouth in the morning and at bedtime 180 tablet 3 05/16/2023 ActiveMisc Natural Products (OSTEO BI-FLEX ADV DOUBLE ST PO) (20 sources)take 2 tablets by mouth once dailyMisc Natural Products (OSTEO BI- FLEX ADV DOUBLE ST PO) Take 2 tablets by mouth daily 0 Activemontelukast 10 mg oral tablet (20 sources)Leukotriene Receptor AntagonistStart: 55-84-7962ootk 1 tablet by mouth at bedtimemontelukast (SINGULAIR) 10 MG tablet Indications: Seasonal allergic rhinitis due to pollen , Exacerbation of asthma, unspecified asthma severity, unspecified whether persistent TAKE 1 TABLET BY MOUTHAT BEDTIME 90 tablet 3 02/11/2025 ActiveMultiple Vitamins-Minerals (MULTIVITAMIN ADULT) TABS (17 sources)take 1 tablet by mouth every other dayMultiple Vitamins-Minerals (MULTIVITAMIN ADULT) TABS Take 1 tablet by mouth every other day 0 Active Multiple Vitamins-Minerals (MULTIVITAMIN WOMEN PO) (7 sources)Multiple Vitamins-Minerals (MULTIVITAMIN WOMEN PO) Take by mouth every other day 0 ActiveNaloxone (20 sources)Opioid AntagonistStart: 15-29-4931Nvbszpme HCl (NARCAN IJ) by Nasal route 07/04/2024 ActiveStart: 01-31-9383udxpicnz 4 MG/0.1ML LIQD nasal spray 07/04/2024 Activenaloxone 0.4 mg in 10 mL sodium chloride syringe (1 source)Start: 21-31-1311XypaoRCLcij, PRN, Opioid Reversal, Starting on Tue07/23/25 at 0838, PRN if respiratory rate is less than 6/min and patient is difficult to arouse then notify physician STAT. Mix 9 mL of sodium chloride 0.9% with 0.4 mg (1 mL) of naloxone (NARCAN) in 10 mL syringe. (Note: dilution is 0.04 mg/mL) Give 0.08 mg (2 mL of special dilution), slow IV push, repeat up to 0.4 mg (10 mL) or until patient isresponsive to physical stimulation and respiratory rate is equal to or greater than 6 breaths/min. Continue to observe, if no response within 3 minutes of administration of 0.4 mg (10 mL) total, repeat dose (0.4 mg as administered previously). Concentration 0.04 mg/mL, PACU only24 hr nicotine 0.583 mg/hr transdermal system (17 sources)Cholinergic Nicotinic AgonistStart: 77-82-3980wlwut 1 dose transdermal route once daily at bedtime1 patch, TransDERmal, Administer over 24 Hours, DAILY, First dose on Tue09/14/24 at 1145, Apply new patch to nonhairy, clean, dry skin on the upper body or upper outer arm. Rotate patch sites. Notify pharmacy if patient or provider prefers patch to be removed at bedtime and replaced in the morning. Hazardous Medication -- Refer to facility policy for handling and disposal.Start: 27-16-9958xbmgcgxe (NICOTROL) 10 MG inhaler Indications: Cigarette nicotine dependence without complication Inhale 1 puff into the lungs as needed for Smoking cessation 1 Inhaler 3 01/23/2020 Active NONFORMULARY (20 sources)NONFORMULARY Medical Marijuana Card 0 Activenystatin 514612 unt/ml oral suspension (1 source)Polyene AntifungalStart: 09-23-2022 End: 46-89-9172jzyd 5 mL by mouth four times dailynystatin (MYCOSTATIN) 278662 UNIT/ML suspension Indications: Oral candidiasis Take 5 mLs by mouth 4times daily for 10 days 200 mL 0 09/23/2022 10/03/2022 Activeomeprazole 20 mg delayed release oral capsule (20 sources)Proton Pump InhibitorStart: 05-17-2024 End: 21-33-7046ybsf 1 capsule by mouth once dailyomeprazole (PRILOSEC) 20 MG delayed release capsule Indications: Gastroesophageal reflux disease without esophagitis Take 1 capsule by mouth Daily 90 capsule 3 06/13/2024 05/31/2025 Discontinued (Stop Taking at Discharge)ondansetron (ZOFRAN-ODT) disintegrating tablet 4 mg (4 sources)Start: 49-77-4664bvlzaruzrqp (ZOFRAN-ODT) disintegrating tablet 4 mg Start: 16-13-6208mkldnviwkvm (ZOFRAN-ODT) disintegrating tablet 4 mgStart: 41-43-1097jptjvlewnpn (ZOFRAN-ODT) disintegrating tablet 4 mgStart: 06-11-2023 ondansetron (ZOFRAN-ODT) disintegrating tablet 4 mgoxyCODONE (2 sources)Opioid AgonistStart: 07-23-2025 End: 18-50-9858cymQNUKRK (ROXICODONE) immediate release tablet 5 mgStart: 07-14-2024 End: 73-50-2983ojsy 1 dose by mouth once5 mg, Oral, ONCE, 1 dose, On 07/14/24 at 0030pioglitazone 30 mg oral tablet (20 sources)Peroxisome Proliferator Receptor alpha Agonist, Peroxisome Proliferator Receptor gamma Agonist, ThiazolidinedioneStart: 72-73-8157dvat 30 mg by mouth once daily30 mg, Oral, DAILY, First dose on 09/15/24 at 1100, Until DiscontinuedStart: 00-95-3797gcac 1 tablet by mouth once dailypioglitazone (ACTOS) 30 MG tablet Take 1 tablet by mouth daily 06/12/2024 Activepolyethylene glycol 3350 85221 mg powder for oral solution (4 sources)Osmotic LaxativeStart: 24-62-3767Mjssi: g, Oral, DAILY PRN, Starting on 09/14/24 at 1124, Until Discontinued, Constipation, First line therapy for constipationStart: g, Oral, DAILY PRN, Starting on 07/23/24 at 1845, Until Discontinued, Constipation, First line therapy for constipationStart: g, Oral, DAILY PRN, Starting on 06/11/23 at 0043, Until Discontinued, Constipation First linetherapy for constipation Potassium Chloride (1 source)Start: 31-59-9860jwabzudgk chloride (KLOR-CON M) extended release tablet 40 mEqpovidone-iodine 100 mg/ml topical spray (1 source)AntisepticStart: 23-43-0904Guegwuv, PRN, Wound Care, Please send to patient room STAT, Starting on Tue07/23/24 at 1848, For 1dose, 1 Large bottle to bedside for Podiatry resident. Please bring to room for dressing changes Morgan nk you Either from supply room or pharmacy. Wherever it is most readily availablepredniSONE 10 mg oral tablet (2 sources)Start: 20-11-1858rjfuitPMVG (DELTASONE) 10 MG tablet 4 tabs daily for 3 days, 3 tabs daily for 3 days, 2 tabs daily for 3 days, 1 tab daily for 3 days 30 tablet 0 06/14/2023 Activepregabalin 150 mg oral capsule (20 sources)Start: 60-86-3169hkxr 150 mg by mouth three times rafpf721 mg, Oral, 3 times daily, First dose (after last modification) on Tue05/31/25 at 0900, Until DiscontinuedStart: 05-30-2025 End: 71-23-8496iavy 75 mg by mouth three times daily75 mg, Oral, 3 times daily, First dose on Olena 05/30/25 at 0900, Until DiscontinuedStart: 18-92-3936gsvk 1 capsule by mouth at bedtimepregabalin (LYRICA) 150 MG capsule Take 1 capsule by mouth in the morning, at noon, and at bedtime.05/15/2025 ActiveStart: 09-15-2024 take 25 mg by mouth once daily25 mg, Oral, DAILY, First dose on Tue09/15/24 at 1100, Until DiscontinuedStart: 74-71-1719qrhn 1 capsule by mouth three times dailypregabalin (LYRICA) 50 MG capsule Take 1 capsule by mouth 3 times daily. 09/07/2024 ActiveStart: 06-30-2024 End: 15-24-1044hgpfhryypl (LYRICA) 25 MG capsule 06/30/2024 ActiveStart: 20-31-2703stoo 25 mg by mouth three times daily25 mg, Oral, 3 TIMES DAILY, First dose (after last modification) on Tue07/24/24 at 1400, Until Bpfoqpjamvjo57 ml sodium chloride 9 mg/ml injection (20 sources)Start: 66-46-4559NyhwbRDYznh, at 5-250 mL/hr, PRN, if patient receiving piggyback infusions and maintenance fluids are not ordered, Starting on Tue07/23/25 at 0838, For piggyback infusion, administer at same rate as piggyback for a total of 25 mL. Enter 25 mL into dose field and piggyback rate into rate field of order. If piggyback is infusing at a rate less than 100 mL/hr, enter 25 mL into dose field and 100 mL/hr into rate field of order., PACU onlyStart: -40 mL, IntraVENous, EVERY 12 HOURS SCHEDULED (2 times per day), First dose on Tue07/23/25 at 0900, Until Discontinued, For Line Patency: Peripheral IV = 5 mL; Midline or Central Line = 10 mL/lumen. If following IV push medication, administer flush at same rate as the IV push. Flush volume is determined by type of infusion therapy being given. For non- viscous solutions use: Peripheral IV = 5 mLMidline or Central Line = 10 mL/lumen For viscous solutions (i.e. blood components, parenteral nutrition, contrast media, or after obtaining blood sample) use: Peripheral IV = 10 mL Midline or Central Line = 20 mL/lumen, PACU onlyStart: -40 mL, IntraVENous, PRN, Starting on Tue07/23/25 at 0838, Until Discontinued, Line Care, After every IV [...] mL Midline or Central Line = 20 mL/lumen, PACU onlyStart: mL, IntraVENous, EVERY 12 HOURS SCHEDULED (2 times per day), First dose on Tue05/30/25 at 0900, Until DiscontinuedStart: 60-06-5308Fkbfo: 05-30-2025 End: 54-59-7859WeflkYIJbjz, at 150 mL/hr, CONTINUOUS, Starting on Tue05/30/25 at 0515, For 24 hours, Complete last bag that is running at 24 hours and then saline lock IVStart: 66-51-6697Xjgaj: 09-14-2024 End: 35-20-1276Yieti: 82-14-2340SjgbqCPJxkl, at 5-250 mL/hr, PRN, if patient receiving [...] and 100 mL/hr into rate field of order.Start: -40 mL, IntraVENous, EVERY 12 HOURS SCHEDULED (2 [...] non-viscous solutions use: Peripheral IV = 5 mLMidline or Central Line = 10 mL/lumen For viscous solutions (i.e. blood components, parenteral nutrition, contrast media, or after obtaining blood sample) use: Peripheral IV = 10 mL Midline or Central Line = 20 mL/lumenStart: -40 mL, IntraVENous, PRN, Starting on Tue09/14/24 at [...] mL Midline or Central Line = 20 mL/lumenStart: -40 mL, IntraVENous, EVERY 12 HOURS SCHEDULED (2 times per day), First dose on Tue07/23/24 at 2100, Until Discontinued, For Line Patency: Peripheral IV = 5 mL; Midline or Central Line = 10 mL/lumen. If following IV push medication, administer flush at same rate as the IV push. Flush volume is determined by type of infusion therapy being given. For non- viscous solutions use: Peripheral IV = 5 mLMidline or Central Line = 10 mL/lumen For viscous solutions (i.e. blood components, parenteral nutrition, contrast media, or after obtaining blood sample) use: Peripheral IV = 10 mL Midline or Central Line = 20 mL/lumenStart: 07-23-2024 End: 44-01-1480InjioHKAecm, at 75 mL/hr, CONTINUOUS, Starting on Tue07/23/24 at 1915, For 24 hours, Complete lastbag that is running at 24 hours and then saline lock IVStart: 17-70-9447KgcazFMGvxm, at 5-250 mL/hr, PRN, if patient receiving [...] and 100 mL/hr into rate field of order.Start: -40 mL, IntraVENous, PRN, Starting on 07/23/24 at 1845, Until Discontinued, Line Care, After [...] mL Midline or Central Line = 20 mL/lumenStart: 27-64-9704jtcf 1 dose intravenously twice daily5-40 mL, IntraVENous, EVERY 12 HOURS SCHEDULED (2 [...] mL Midline or Central Line = 20 mL/lumenStart: 06-11-2023 End: 29-66-1015XshjiRHZhpe, at 75 mL/hr, CONTINUOUS, Starting on 06/11/23 at 0100Start: 97-94-8655ptkf 5-40 mL intravenously once as needed5-40 mL, IntraVENous, PRN, Starting on 06/11/23 at [...] mL Midline or Central Line = 20 mL/lumenStart: 06-10-2023 End: 05-20-6520koiaqe chloride 0.9 % bolus 1,000 mLtiZANidine 4 mg oral tablet (20 sources)Central alpha-2 Adrenergic AgonistStart: 13-90-3304tdMCEtwepd (ZANAFLEX) 4 MG tablet Take 1 tablet by mouth 0 03/13/2024 ActiveStart: 56-66-4966isNZByplff (ZANAFLEX) 4 MG tablet 4 mg nightly 0 02/21/2019 Active traMADol hydrochloride 50 mg oral tablet (20 sources)Opioid AgonistStart: 72-21-0311ngmb 1 tablet by mouth every twelve hours as needed for pain and pain, then take 2 tablets by mouthevery six hours as needed for pain and painTramadol 50 mg tablet Active 100 MG PO Q12H as needed for Pain June 24, 2025 12:21pm Take 1 or 2 tabs p.o. every 6 hours as needed for pain Complies with drug therapyStart: 53-99-4989ermm 100 mg by mouth twice ulizr542 mg, Oral, 2 times daily, First dose on Olena 05/30/25 at 1115, Until DiscontinuedStart: 11-19-2024 End: 18-43-1898sqzj 1 tablet by mouth every four hours [...] Amount: 300 mg 120 tablet 11/19/2024 12/19/2024 ActiveStart: 39-64-0634ngnv 100 mg by mouth twice gxrat533 mg, Oral, 2 times daily, First dose on 09/15/24 at 1145, Until Discontinued Start: 07-23-2024 End: 56-59-6358aqch 100 mg by mouth twice ufidr059 mg, Oral, 2 TIMES DAILY, First dose on 07/23/24 at 2330, Until DiscontinuedStart: 06-11-2023 End: 54-39-1608clzYIUik (ULTRAM) tablet 50 mgStart: 10-04-2022 End: 02-24-9535ypkl 1 tablet by mouth every six hours as needed for paintraMADol (ULTRAM) 50 MG tablet Indications: Charcot's joint [...] Amount: 200 mg 120 tablet 01/21/2025 02/20/2025 ActiveStart: 09-21-2022 End: 24-78-3036xgtb 1 tablet by mouth twice dailyTramadol 100 mg Tablet Extended Release 24 Hr Discontinued 100 MG PO Twice daily September 21, 2022 1:00am June 24, 2025 12:21pmStart: 09-20-2022 End: 36-89-5476hmgj 2 tablets by mouth at bedtimetraMADol (ULTRAM) 50 MG tablet Indications: Closed dislocation [...] Amount: 200 mg 120 tablet 09/17/2024 10/17/2024 ActiveStart: 29-03-4921qshVOQlp (ULTRAM) 50 MG tablet Take 1 to 2 tablets every 12 hours as needed for pain 30 tablet 0 09/01/2015 Activetake 2 tablets by mouth once daily at bedtimetraMADol (ULTRAM) 50 MG tablet Take 2 tablets by mouth in the morning and at bedtime. Max Daily Amount: 200 mg Active traMADol (ULTRAM) 50 MG tablet Take 1 tablet by mouth 2 times daily. 2 tablets Activetriamcinolone acetonide 0.25 mg/ml topical cream (20 sources)CorticosteroidStart: 68-09-9207ocrmecmypkbrg (KENALOG) 0.025 % cream Indications: Eczema of external ear, bilateral Apply topically 2 times daily. 15 g 04/25/2025 Active Completed/Discontinued Medications MedicationDrug Class(es)DatesSig (Normalized)Sig (Original)azithromycin (ZITHROMAX) 500 mg in 250 mL addavial (1 source)Start: 06-10-2023 End: 68-95-2009qbipjxrhcswb (ZITHROMAX) 500 mg in 250 mL addavialbaclofen 10 mg oral tablet (20 sources)gamma-Aminobutyric Acid-ergic AgonistStart: 06-18-2021 End: 88-96-0026lmvk 1 tablet by mouth once daily at bedtimeBaclofen 10 mg tablet Discontinued 10 MG PO Daily at bedtime September 21, 2022 1:00am June 242024 12:17pm On Hold: Resume on 10/11/22. While on cyclobenzaprineStart: 93-66-6918tekv 1 tablet by mouth three times dailybaclofen (LIORESAL) 10 MG tablet Take 1 tablet by mouth 3 times daily 0 06/18/2021 ActiveStart: 06-18-2021 End: 57-54-8797ikvucnpm (LIORESAL) 10 MG tablet 2 times daily 0 06/18/2021 ActiveStart: 93-36-8997usfp 1 tablet by mouth three times dailybaclofen (LIORESAL) 10 MG tablet Indications: TMJ tenderness, left Take 1 tablet by mouth 3 times daily 90 tablet 1 09/10/2019 Activebenzonatate 100 mg oral capsule (1 source)Non-narcotic AntitussiveStart: 21-47-5247jhqw 100 mg by mouth three times daily as lbbdty619 mg, Oral, 3 TIMES DAILY PRN, Starting on 06/11/23 at 0043, Until Discontinued, Cough60 actuat budesonide 0.16 mg/actuat / formoterol fumarate 0.0045 mg/actuat metered dose inhaler (1 source)Corticosteroid, beta2-Adrenergic AgonistStart: puff, Inhalation, 2 TIMES DAILY RESP, First dose on Olena 05/30/25 at 0800, Until Discontinued, Substituted for fluticasone-salmeterol (ADVAIR DISKUS or WIXELA INHUB).chlorhexidine gluconate 1.2 mg/ml mouthwash (3 sources)Start: 07-05-2024 End: 82-33-5261lqez 15 mL by mouth twice dailychlorhexidine (PERIDEX) 0.12 % solution Indications: Oral aphthous ulcer Swish and spit 15 mLs 2 times daily for 14 days 420 mL 07/05/2024 07/19/2024 Expiredciprofloxacin 500 mg oral tablet (2 sources)Quinolone AntimicrobialStart: 08-21-2024 End: 69-19-4785mflt 1 tablet by mouth twice dailyciprofloxacin (CIPRO) 500 MG tablet Take 1 tablet by mouth 2 times daily 28 tablet 08/21/2024 09/07/2024 Discontinued (Therapy completed)cyclobenzaprine hydrochloride 10 mg oral tablet (3 sources)Muscle RelaxantStart: 10-04-2022 End: 97-02-7174vhtj 1 tablet by mouth three times daily as needed for muscle spasmsCyclobenzaprine 10 mg tablet Discontinued 10 MG PO Three times daily as needed for back spasms October 04, 2022 1:00am June 24, 2025 12:17pm Start: 08-06-2022 End: 83-82-6702kjvk 1 tablet by mouth once daily as needed for muscle spasms cyclobenzaprine (FLEXERIL) 10 MG tablet Take 1 tablet by mouth nightly as needed for Muscle spasms 10 tablet 0 08/06/2022 08/16/2022 Activedextromethorphan hydrobromide 2 mg/ml / guaiFENesin 20 mg/ml oral suspension (1 source)Uncompetitive X-ukhaqx-S-aspartate Receptor Antagonist, Sigma-1 AgonistStart: 66-76-7374yuhe 5 mL by mouth every four hours as needed5 mL, Oral, EVERY 4 HOURS PRN, Starting on 06/11/23 at 0043, Until Discontinued, Cough dimenhyDRINATE 50 mg oral tablet (1 source)Start: 07-23-2025 End: 25-77-7228jdcs 1 dose by mouth once daily50 mg, Oral, ONCE, 1 dose, On Tue07/23/25 at 0700, Pre-op (day of surgery)Start: 07-23-2025 End: 98-68-0326dduv 1 dose by mouth once daily50 mg, Oral, ONCE, 1 dose, On Tue07/23/25 at 0700, Pre-op (day of surgery)0.4 ml enoxaparin sodium 100 mg/ml prefilled syringe (3 sources)Low Molecular Weight HeparinStart: 35-80-4028kwsloz 40 mg by subcutaneous injection once daily40 mg, SubCUTAneous, DAILY, First dose on Tue09/14/24 at 1400, Until Discontinued, Indication of Use: Prophylaxis-DVT/PE, Administer by deep subCUTAneous injection with pt lying down. Alternate injec tion sites on abdominal wall. Do not rub site after injection. Check with provider prior to any invasive procedure.Start: 62-29-2180ketfbe 40 mg by subcutaneous injection once daily40 mg, SubCUTAneous, DAILY, First dose on Tue07/24/24 at 0900, Until Discontinued, Indication of Use: Prophylaxis-DVT/PE, Administer by deep subCUTAneous injection with pt lying down. Alternate injec tion sites on abdominal wall. Do not rub site after injection. Check with provider prior to any invasive procedure.Start: 25-65-6746fsdtmy 40 mg by subcutaneous injection once daily40 mg, SubCUTAneous, DAILY, First dose on Tue06/11/23 at 0900, Until Discontinued Indication of Use: Prophylaxis-DVT/PE ergocalciferol 1.25 mg oral capsule (1 source)Provitamin D2 CompoundStart: 60-21-5576cawm 04388 [IU] by mouth every week50,000 Units, Oral, WEEKLY, First dose on Tue07/25/24 at 0930, Until Discontinuedfamotidine 20 mg oral tablet (1 source)Histamine-2 Receptor AntagonistStart: 52-84-9548hbhv 20 mg by mouth twice daily20 mg, Oral, 2 TIMES DAILY, First dose on Tue06/11/23 at 0100, Until Discontinuedgabapentin 300 mg oral capsule (20 sources)Anti-epileptic AgentStart: 09-14-2024 End: 19-54-5969160 mg, Oral, ONCE, 1 dose, On Tue09/14/24 at 0630, Administer 60 minutes prior to surgery., Pre-op (day of surgery)Start: 07-23-2024 End: 79-15-2999742 mg, Oral, ONCE, 1 dose, On Tue07/23/24 at 1245, Administer 60 minutes prior to surgery., Pre-op (day of surgery)Start: 09-31-4034sooimmjclo (NEURONTIN) capsule 600 mgStart: 02-21-2019 End: 26-87-2751whxy 1 tablet by mouth three times dailyGabapentin 600 mg tablet Discontinued 600 MG PO Three times daily September 21, 2022 1:00am June 24, 2025 12:22pm0.5 ml HYDROmorphone hydrochloride 1 mg/ml prefilled syringe (2 sources)Opioid AgonistStart: 50.5 mg, IntraVENous, EVERY 5 MIN PRN, 2 doses, Starting on Tue07/23/25 at 0838, Until Discontinued, Pain Severe (7- 10), For Phase I. If Phase II oral narcotics have been administered in the last 60 minutes, do not administer IV narcotics unless specifically approved by provider., PACU onlyStart: 07-23-2024 End: 40.5 mg, IntraVENous, EVERY 5 MIN PRN, 2 doses, Starting on Tue07/23/24 at 1707, Until Tue07/23/24at 2006, Pain Severe (7-10), For Phase I. If Phase II oral narcotics have been administered in the last 60 minutes, do not administer IV narcotics unless specifically approved by provider., PACU only ibuprofen 400 mg oral tablet (1 source)Nonsteroidal Anti-inflammatory DrugStart: 83-50-5301gmoy 400 mg by mouth three times daily at qdrodcxu378 mg, Oral, 3 TIMES DAILY WITH MEALS, First dose on 06/11/23 at 0800, Until Discontinued Do not crush or break. Substituted for Diclofenac (VOLTAREN).insulin glargine 100 unt/ml injectable solution (20 sources)Insulin AnalogStart: 09-14-2024 End: 24-93-4860ldzzmg 15 [IU] by subcutaneous injection twice daily15 Units, SubCUTAneous, 2 TIMES DAILY, First dose on Tue09/14/24 at 2100, Until DiscontinuedStart: 06-11-8878adwtawo glargine (LANTUS SOLOSTAR) 100 UNIT/ML injection pen Indications: Diabetes mellitus type 2 with complications, uncontrolled (HCC) Inject 30 Units into the skin 2 times daily 5 pen 5 2019 ActiveInsulin Glargine (TOUJEO SOLOSTAR SC) Inject 92 Units into the skin 92 units twice daily 0 ActiveInsulin Glargine (TOUJEO SOLOSTAR SC) Inject 88 Units into the skin 80 units twice daily 0 ActiveInsulin Glargine (TOUJEO SOLOSTAR SC) Inject into the skin 80 units twice daily 0 Activeinsulin lispro 100 unt/ml injectable solution (20 sources)Insulin AnalogStart: -8 Units, SubCUTAneous, 4 TIMES DAILY BEFORE MEALS & NIGHTLY, First dose on Tue05/30/25 at 0700, Until Discontinued, Medium Dose Corrective Algorithm Glucose: Dose: 70-179 No Insulin 180-249 2 Units 250-299 4 Units 300-349 6 Units Over 349 8 Units and notify physician Administer as soon as possible within 60 minutes of last blood glucose checkStart: 42-99-3532DSZCXQQ KWIKPEN 200 UNIT/ML SOPN pen 11/08/2024 ActiveStart: 09-14-2024 End: -16 Units, SubCUTAneous, 4 TIMES DAILY BEFORE MEALS & NIGHTLY, First dose on Tue09/15/24 at 1700, Until Discontinued, High Dose Corrective Algorithm Glucose: Dose: 70-179 No Insulin 180-2494 Units 250-299 8 Units 300- 349 12 Units Over 349 16 Units and notify physician Administer as soon as possible within 60 minutes of last blood glucose checkStart: 27-43-3439qflgwx 60 [IU] by subcutaneous injection three times daily at wvxedsyv91 Units, SubCUTAneous, 3 TIMES DAILY WITH MEALS, First dose on Tue07/24/24 at 0215, Until DiscontinuedStart: Units, SubCUTAneous, ONCE, 1 dose, On Tue07/24/24 at 0030Start: -4 Units, SubCUTAneous, 4 TIMES DAILY BEFORE MEALS & NIGHTLY, First dose on 07/23/24 at 2330, Until Discontinued, Corrective Low Dose Algorithm Glucose: Dose: 70-179 No Insulin 180-249 1Unit 250-299 2 Units 300-349 3 Units Over 349 4 Units and notify physician Administer as soon as possible within 60 minutes of last blood glucose check Start: 06-11-2023 End: 06-96-5564blzpsj 15 [IU] by subcutaneous injection three times daily at tspkuojn72 Units, SubCUTAneous, 3 TIMES DAILY WITH MEALS, First dose on 06/11/23 at 1700, Until Discontinued Substituted for Insulin lispro U-200 (HumaLOG KwikPen).Start: 93-81-8106Sattmty Lispro (Humalog Kwikpen Insulin) 200 unit/mL (3 mL) insulin pen Active sliding scale dose SUBCUT As Directed September 21, 2022 1:00am Complies with drug therapyStart: 97-14-7091HGAKFOK KWIKPEN 200 UNIT/ML SOPN pen Indications: Diabetes mellitus type 2 with complications, uncontrolled INJECT 15 UNITS INTO THE SKIN 3 TIMES DAILY WITH MEALS 15 mL 5 03/10/2020 ActiveStart: 97-21-7106rwttlwy lispro (HUMALOG KWIKPEN) 200 UNIT/ML SOPN pen Indications: Diabetes mellitus type 2 with complications, uncontrolled (HCC) Inject 15 Units into the skin 3 times daily (with meals) 5 pen 5 01/2019 Active3 ml insulin, regular, human 500 unt/ml pen injector (20 sources)InsulinStart: 40-73-5391120 Units, SubCUTAneous, 2 TIMES DAILY WITH MEALS, First dose on 09/15/24 at 1700, Until Discontinued, This is a highly concentrated insulin. After attaching the pen needle, prime with 5 units to ensure proper dosing.Start: 35-99-3892WEGQJOJ R U-500 KWIKPEN 500 UNIT/ML SOPN concentrated injection pen 09/02/2024 ActiveStart: 56-67-3547umelgp 500 [IU] by subcutaneous injection once dailyHUMULIN R U-500 KWIKPEN 500 UNIT/ML SOPN concentrated injection pen INJECT UP TO 500 UNITS SUBCUTANEOUSLY PER DAY. 09/02/2024 ActiveStart: 84-31-8500wkdwyw 100 [IU] by subcutaneous injection twice daily at kiixmqzt424 Units, SubCUTAneous, 2 TIMES DAILY WITH MEALS, First dose on Tue06/11/23 at 1700, Until Discontinued This is highly concentrated insulin. Patient may use home supply.Start: 04-18-0190Hacjltk Regular Hum U-500 Conc (Humulin R U-500 (Conc) Flippen) 500 unit/mL (3 mL) insulin pen Active 120 UNIT SUBCUT Twice daily September 21, 2022 1:00am Complies with drug therapy insulin regular human (HUMULIN R U-500) 500 [...] units with dinner 0 Active Iopamidol (2 sources)Radiographic Contrast AgentStart: 07-30-2019 End: 46-60-4382pjmwpbuye (ISOVUE-370) 76 % injection 18 mLStart: 07-30-2019 End: 20-32-7234uawxhpzwj (ISOVUE-370) 76 % injection 75 mLiopamidol (ISOVUE-370) 76 % injection 75 mL (2 sources)Start: 06-14-2025 End: 66-32-8484svei 1 dose intravenously once75 mL, IntraVENous, IMG ONCE PRN, 1 dose, Starting on Tue06/14/25 at 1646, Until Tue06/14/25 at 1744, OtherStart: 06-10-2023 End: 06-99-6776lqsghjizp (ISOVUE-370) 76 % injection 75 mL1 ml ketorolac tromethamine 30 mg/ml cartridge (1 source)Nonsteroidal Anti-inflammatory Drug, Cyclooxygenase InhibitorStart: 07-13-2024 End: 77-88-794880 mg, IntraMUSCular, ONCE, 1 dose, On Tue07/13/24 at 2015, Do not administer for more than 5 days.levocetirizine dihydrochloride 5 mg oral tablet (20 sources)Histamine-1 Receptor AntagonistStart: 09-28-2024 End: 65-17-5323rvsn 1 tablet by mouth in the eveninglevocetirizine (XYZAL) 5 MG tablet Indications: Seasonal allergic rhinitis due to pollen Take 1 tablet by mouth in the evening 31 tablet 5 09/28/2024 05/14/2025 Discontinued (LIST CLEANUP)Start: 79-21-4162ugew 1 tablet by mouth once daily in the evening levocetirizine (XYZAL) 5 MG tablet Indications: Seasonal allergic rhinitis due to pollen take 1 tablet by mouth every evening 90 tablet 3 09/23/2023 Kdpfpu73 ml lidocaine hydrochloride 10 mg/ml injection (2 sources)Antiarrhythmic, Amide Local AnestheticStart: 01-20-2021 End: 22-98-2291kgurcihxu PF 1 % injectionlisinopril 10 mg oral tablet (20 sources)Angiotensin Converting Enzyme InhibitorStart: 53-60-0415cqst 1 tablet by mouth once dailylisinopril (PRINIVIL;ZESTRIL) 5 MG tablet Indications: History of syncope , Essential hypertension , Tobacco abuse , Mixed hyperlipidemia Take 1 tablet by mouth daily 90 tablet 3 05/28/2025 ActiveStart: 66-43-8874dnle 1 tablet by mouth once dailylisinopril (PRINIVIL;ZESTRIL) 5 MG tablet Indications: History of syncope , Essential hypertension , Tobacco abuse , Mixed hyperlipidemia Take 1 tablet by mouth daily 90 tablet 3 05/23/2025 ActiveStart: 11-25-2015 End: 58-20-1765vtls 1 tablet by mouth once dailylisinopril (PRINIVIL;ZESTRIL) 10 MG tablet Indications: History of syncope , Essential hypertension, Tobacco abuse , Mixed hyperlipidemia Take 1 tablet by mouth once daily 90 tablet 3 06/10/2025 07/15/2025 Discontinued (LIST CLEANUP)melatonin 3 mg oral tablet (1 source)Start: 48-72-7282onqn 3 mg by mouth once daily3 mg, Oral, NIGHTLY, First dose on Tue09/14/24 at 2100, Until Discontinued1 ml morphine sulfate 2 mg/ml injection (2 sources)Opioid AgonistStart: 07-23-2024 End: 61-93-8067eazi 2 mg by mouth every four hours as needed for pain2 mg, IntraVENous, EVERY 4 HOURS PRN, Starting on 07/23/24 at 1848, Until Olena 07/26/24 at 1125,Pain Severe (7-10), breakthru, If oral and IV narcotics ordered, use oral first and only use IV if oral is ineffective or cannot take oral. Do Not give oral and IV within 1 hour of each other unless specifically ordered.Start: 08-06-2022 End: 56-81-7917ynxqnhtt injection 4 mgnitroglycerin 0.3 mg sublingual tablet (1 source)Nitrate VasodilatorStart: 09-29-2022 End: 21-71-1547jjnsbBQIRKJMF (NITROSTAT) SL tablet 0.3 mgStart: 09-29-2022 End: 66-87-0390bcajaDZFFCYIX (NITROSTAT) SL tablet 0.3 mg2 ml ondansetron 2 mg/ml injection (1 source)Serotonin-3 Receptor AntagonistStart: mg, IntraVENous, ONCE PRN, 1 dose, Starting on Tue07/23/25 at 0838, Until Discontinued, Nausea, Secondary antiemetic therapy., PACU onlypantoprazole 40 mg delayed release oral tablet (3 sources)Proton Pump InhibitorStart: 48-44-909272 mg, Oral, DAILY BEFORE BREAKFAST, First dose on Tue05/30/25 at 0700, Until Discontinued, Do not crush or break. Substituted for Omeprazole (PRILOSEC).Start: 01-62-3851Jrbby: 07-24-2024 40 mg, Oral, DAILY BEFORE BREAKFAST, First dose on Tue07/24/24 at 0700, Until Discontinued, Do notcrush or break. Substituted for Omeprazole (PRILOSEC). regadenoson (LEXISCAN) injection 0.4 mg (1 source)Start: 03-03-2021 End: 59-98-5300gqlcenxedgu (LEXISCAN) injection 0.4 mgrOPINIRole 1 mg oral tablet (20 sources)Nonergot Dopamine AgonistStart: 35-18-3465fjod 4 mg by mouth once daily4 mg, Oral, DAILY, First dose on Olena 05/30/25 at 2100, Until Discontinued Start: 17-32-0197zkdo 4 mg by mouth once daily4 mg, Oral, NIGHTLY, First dose on Tue09/14/24 at 2245, Until DiscontinuedStart: 84-80-7851negh 4 mg by mouth once daily4 mg, Oral, NIGHTLY, First dose on 07/23/24 at 2330, Until DiscontinuedStart: 61-03-5238ktvv 1 dose by mouth once4 mg, Oral, ONCE, 1 dose, On 07/14/24 at 0100Start: 40-68-7710zyle 4 mg by mouth once daily4 mg, Oral, NIGHTLY, First dose on 06/11/23 at 0100, Until DiscontinuedStart: 11-03-2015 rOPINIRole (REQUIP) 4 MG tablet TAKE 1 TABLET DAILY 90 tablet 0 11/03/2015 Activesulfamethoxazole 800 mg / trimethoprim 160 mg oral tablet (1 source)Dihydrofolate Reductase Inhibitor Antibacterial, Sulfonamide AntimicrobialStart: 10-04-2022 End: 61-53-6652mgbc 1 tablet by mouth every twelve hoursSulfamethoxazole- Trimethoprim (Bactrim Ds) 800-160 mg tablet Discontinued 1 TAB PO Q12H October 04, 2022 1:00am June 24, 2025 12:16pmtechnetium sestamibi (CARDIOLITE) injection 30 millicurie (2 sources)Start: 03-04-2021 End: 59-51-0030rriibhmsnr sestamibi (CARDIOLITE) injection 30 millicurieStart: 03-03-2021 End: 12-02-1690atlyrrutxi sestamibi (CARDIOLITE) injection 30 millicurie technetium sulfur colloid egg (NYCOMED-SC) solution 1 millicurie (2 sources)Start: 08-22-2019 End: 98-76-0196lhwlbfxvig sulfur colloid egg (NYCOMED-SC) solution 1 millicurie Start: 08-16-2019 End: 20-99-2205vzyojusphy sulfur colloid egg (NYCOMED-SC) solution 1 millicurie water 1000 mg/ml injectable solution (3 sources)Start: 06-11-2023 End: 24-02-2525ynywaze water injection Problems Active Problems Problem ClassificationProblemDateDocumented DateEpisodic/ChronicAbdominal pain (20 sources)Generalized abdominal pain; Translations: [Abdominal pain]07-09-2015 EpisodicAcute and unspecified renal failure (17 sources)Acute renal failure syndrome; Translations: [Acute kidney failure, unspecified]Onset: 287808-43-0325LbinsodeCsesxxfkbylixz/social admission (1 source)Counseling procedure with explicit context; Translations: [Tobacco abuse counseling]EpisodicCalculus of urinary tract (20 sources)Kidney stone; Translations: [Ureteric stone]Onset: 07-03-2013 Resolved: 223193-84-1356YehsfvwdEgjfkzsoqwlw of device; implant or graft (2 sources)Pain due to other internal prosthetic devices, implants and grafts, initial encounter; Translations: [Pain]EpisodicComment on above:Problem List clean-up per request of Phys. EHR CmteConditions associated with dizziness or vertigo (19 sources)Dizziness; Translations: [Dizziness and giddiness]Onset: 05-31-2025 EpisodicDiabetes mellitus with complications (20 sources)Diabetic neuropathy; Translations: [Hyperglycemia due to type 2 diabetes mellitus]Onset: 663958-50-3461RaxvbfiOhyjksim mellitus without complication (20 sources)Type 2 diabetes mellitus; Translations: [Type 2 diabetes mellitus with unspecified complications]Onset: 520003-83-9494ShjrassFmhxoinil of lipid metabolism (20 sources)Dyslipidemia; Translations: [Hypertriglyceridemia]Onset: 07-06-2015 99-93-4968GjbegwhWrdoipttt hypertension (20 sources)Essential hypertension; Translations: [Essential (primary) hypertension]Onset: 685372-84-8915JwotezwAfnalywcolnnh symptoms and ill- defined conditions (20 sources)Carl hematuria; Translations: [Gross hematuria]Onset: 07-19-2013 12-93-6451IjbnfqrbLwzanpmo; including migraine (1 source)Scalp tenderness; Translations: [Scalp tenderness]EpisodicHeart valve disorders (2 sources)Heart murmur; Translations: [Cardiac murmur, unspecified]Onset: 108027-41-0898EfgluglzOoingwra disorders (1 source)Other specified disorders involving the immune mechanism, not elsewhere classified; Translations: [OTH SPEC D/O INVOLV IMMUNE MECH NEC]Onset: 13-24-3198PtkfwtdVchcril and fatigue (2 sources)Tired; Translations: [Other fatigue]EpisodicMood disorders (20 sources)Depressive disorder; Translations: [Major depressive disorder, single episode, unspecified]Onset: 675739-04-7964AbffxrdNnhjgzmhfoy chest pain (1 source)Chest discomfort; Translations: [Other chest pain]Episodic Osteoarthritis (20 sources)Unspecified osteoarthritis, unspecified site; Translations: [Osteoarthritis of joint of left shoulder region]Onset: 737735-97-4265 ChronicOsteoporosis (2 sources)Osteoporosis; Translations: [Age-related osteoporosis without current pathological fracture]60-08-7826KdbwbwmMgilv circulatory disease (14 sources)Orthostatic hypotension; Translations: [Orthostatic hypotension] Onset: 347233-36-4672GdqyfcavYtjsv circulatory disease (1 source)Facial sinus finding; Translations: [Other specified symptoms and signs involving the circulatory and respiratory systems]57-49-2221ZrhxiqdyNfqxj circulatory disease (1 source)Other specified symptoms and signs involving the circulatory and respiratory systems; Translations:[Other specified symptoms and signs involving the circulatory and respiratory systems]Onset: 06-57-9598FqfejwzbZpsea connective tissue disease (1 source)Pain in left foot; Translations: [Pain in left foot]79-70-2775Lmdnzsse Other diseases of kidney and ureters (1 source)Abnormal renal function; Translations: [Disorder of kidney and ureter, unspecified]17-39-7791OjqxgbzuTbpub diseases of kidney and ureters (1 source)Disorder of kidney and ureter, unspecified; Translations: [Disorder of kidney and ureter, unspecified]Onset: 81-61-1344MuwjgdndAzrmg injuries and conditions due to external causes (1 source)Injury of head; Translations: [Traumatic injury of head, initial encounter]EpisodicOther injuries and conditions due to external causes (18 sources)Acute organ dysfunction due to systemic inflammatory response syndrome; Translations: [SIRS withoutinfection with organ dysfunction]Onset: Other liver diseases (20 sources)Steatosis of liver; Translations: [Fatty (change of) liver, not elsewhere classified]Onset: 507859-17-0276EnqvwzbAaqex liver diseases (1 source)Large liver; Translations: [Hepatomegaly, not elsewhere classified] EpisodicOther liver diseases (1 source)Increased creatine kinase level; Translations: [Abnormal levels of other serum enzymes]72-17-7150UezorlweScjuq liver diseases (1 source)Abnormal levels of other serum enzymes; Translations: [Abnormal levels of other serum enzymes]Onset: 08-99-8607GjkkwiupYkalo lower respiratory disease (1 source)Rib pain; Translations: [Pleurodynia]EpisodicOther lower respiratory disease (2 sources)Dyspnea; Translations: [Shortness of breath]98-40-1673QbaxjrbhZveqf lower respiratory disease (1 source)Shortness of breath; Translations: [Shortness of breath]Onset: 36-01-1258OimxukhjWamwj nervous system disorders (2 sources)Chronic pain; Translations: [Other chronic pain]ChronicOther nervous system disorders (2 sources)Complex regional pain syndrome of lower limb; Translations: [Complex regional pain syndrome I of left lower limb]ChronicOther nervous system disorders (5 sources)Other chronic pain; Translations: [OTHER CHRONIC PAIN]Onset: 94-10-9358DcwwzsjSmske nervous system disorders (5 sources)Chronic pain syndrome; Translations: [CHRONIC PAIN SYNDROME]Onset: 70-17-2131LqqypktRdzpt nervous system disorders (1 source)Other acute postprocedural pain; Translations: [Other acute postprocedural pain]Onset: 30-75-1236UoscymqoSwoak non-traumatic joint disorders (20 sources)Charcot's arthropathy; Translations: [Charcot's joint, left ankle and foot]Onset: 421454-02-6184CipgnxwDlaai non-traumatic joint disorders (20 sources)Charcot's joint of foot; Translations: [Charcot's joint, left ankle and foot]Onset: 359967-38-5071DenjbikTeigm non-traumatic joint disorders (4 sources)Charcot's joint, left ankle and foot; Translations: [Charcot's joint, left ankle and foot]Onset: 87-18-7354LdwxivuUhkxp non-traumatic joint disorders (2 sources)Pain in right shoulder; Translations: [Pain in joint, shoulder region]Onset: 974291-10-4995TdlpwfcbSlfuy nutritional; endocrine; and metabolic disorders (4 sources)Body mass index 30+ - obesity; Translations: [Body mass index (BMI) 33.0-33.9, adult]85-19-2323VavpqgaVzapv nutritional; endocrine; and metabolic disorders (14 sources)Body mass index 40+ - severely obese; Translations: [Morbid (severe) obesity due to excess calories]Onset: 987531-98-8820UhxjhexVzhpj upper respiratory disease (2 sources)Allergic rhinitis; Translations: [Allergic rhinitis, unspecified] 60-32-1302UhourlsXbqvh upper respiratory disease (1 source)Allergic rhinitis, unspecified; Translations: [Allergic rhinitis, unspecified]Onset: 28-85-4458FinqqyvJnyhe upper respiratory disease (2 sources)Nasal congestion; Translations: [Nasal congestion]26-84-2553Wvkrzfuf Other upper respiratory disease (1 source)Nasal congestion; Translations: [Nasal congestion]Onset: 07-17-2025 EpisodicOther upper respiratory infections (1 source)Recurrent sinusitis; Translations: [Chronic sinusitis, unspecified] 41-06-3024DzjmajgKfozv upper respiratory infections (2 sources)Pansinusitis; Translations: [Acute recurrent pansinusitis]07-02-2024 EpisodicPeripheral and visceral atherosclerosis (1 source)Intermittent claudication; Translations: [Peripheral vascular disease, unspecified]ChronicResidual codes; unclassified (18 sources)Tobacco user; Translations: [Tobacco abuse]Onset: 12-21-2017 10-73-0502ZupvoxxLjjwxgak codes; unclassified (16 sources)Obstructive sleep apnea syndrome; Translations: [Obstructive sleep apnea (adult) (pediatric)]Onset: 69-67-5373TbdxalnOhcbuybj codes; unclassified (1 source)Edema of lower leg ; Translations: [Localized edema]65-55-0061Ioddkgaf Residual codes; unclassified (2 sources)History of syncope; Translations: [Personal history of other specified conditions]16-17-2910NwxogvdvRyipstop codes; unclassified (1 source)Bilateral lower limb edema; Translations: [Localized edema]05-23-2025 EpisodicResidual codes; unclassified (1 source)Personal history of other specified conditions; Translations: [Personal history of other specified conditions]Onset: 54-08-0965Dociiaef Residual codes; unclassified (1 source)Localized edema; Translations: [Localized edema]Onset: 05-23-2025 EpisodicSpondylosis; intervertebral disc disorders; other back problems (19 sources)Degeneration of lumbar intervertebral disc; Translations: [Other intervertebral disc degeneration, lumbar region]Onset: 28-04-7469Kxixgco Substance-related disorders (2 sources)Smoker; Translations: [Nicotine dependence, unspecified, uncomplicated]87-42-3209JyzaoyzDiyyvyj on above:Problem List clean-up per request of Phys. EHR CmteThyroid disorders (1 source)Goiter; Translations: [Thyromegaly]ChronicUnclassified (1 source)Patient encounter status; Translations: [Preoperative testing] Unclassified (1 source)Pain due to other internal prosthetic devices, implants and grafts, initial encounter; Translations: [Pain due to other internal prosthetic devices, implants and grafts, initial encounter]Onset: 79-04-0246Ethbvdxitsvn (1 source)Encounter for preprocedural laboratory examination; Translations: [Encounter for preprocedural laboratory examination]Onset: 09-30-2022 Unclassified (1 source)M79.10 - Myalgia, unspecified site; Translations: [M79.10 - Myalgia, unspecified site]Onset: 08-01-2854Mfjkfaqnaufw (4 sources)LOW BACK PAIN, UNSPECIFIED; Translations: [LOW BACK PAIN, UNSPECIFIED]Onset: 45-24-6728Orgxoowbulsj (1 source)Facial sinus rnoiupm08-97-9200 Past or Other Problems Problem ClassificationProblemDateDocumented DateEpisodic/ChronicAnal and rectal conditions (20 sources)Perirectal abscess; Translations: [Rectal abscess]Onset: 12-20-2017 90-42-7059PxyaikgwKhtdtnlw of lower limb (20 sources)Closed fracture of metatarsal bone of left foot; Translations: [Fracture of unspecified metatarsal bone(s), left foot, initial encounter for closed fracture]Onset: 335263-13-4047LddlnkktDlyxy disorders and dislocations; trauma-related (20 sources)Traumatic dislocation of joint of foot; Translations: [Dislocation of tarsometatarsal joint of leftfoot, initial encounter]Onset: 07-17-2024 02-36-3419RlspstnfXdgfb acquired deformities (20 sources)Acquired equinus deformity of foot; Translations: [Other specified acquired deformities of left lower leg]Onset: 908751-75-9576BntlwqstDnvyp aftercare (2 sources)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; Translations: [intermediate (current) use of insulin (HCC)]Onset: 15-51-3710KcbzzcheOohyp and unspecified benign neoplasm (20 sources)Benign neoplasm of skin of trunk; Translations: [Melanocytic nevi of trunk]Onset: 384924-64-2491UsfwpqshGslmx connective tissue disease (20 sources)Fibromyalgia; Translations: [Fibromyalgia]Onset: 01-31-2013 60-20-2444JdbstineAiqzg connective tissue disease (20 sources)Pain in upper limb; Translations: [Pain in arm, unspecified]Onset: 365282-92-9285LjlyxjpnTahvy connective tissue disease (20 sources)Spasm; Translations: [Other muscle spasm]Onset: EpisodicOther connective tissue disease (20 sources)Muscle pain; Translations: [Myalgia, other site]Onset: 12-08-2023 13-21-2833KsdnqxfgRzpth connective tissue disease (1 source)Pain in left foot; Translations: [Pain in left foot]Onset: 08-31-2024 EpisodicOther diseases of kidney and ureters (20 sources)Hydronephrosis; Translations: [Unspecified hydronephrosis]Onset: 04-28-2016 Resolved: 019813-18-9492PtuxawuhChtjc injuries and conditions due to external causes (20 sources)Acute organ dysfunction due to systemic inflammatory response syndrome; Translations: [Systemic inflammatory response syndrome (SIRS) of non- infectious origin with acute organ dysfunction]Onset: EpisodicOther nervous system disorders (20 sources)Postoperative pain ; Translations: [Other acute postprocedural pain] Onset: 07-23-2024 Resolved: 023634-85-5408FtqqgwiaEjaqa non-traumatic joint disorders (20 sources)Multiple joint pain; Translations: [Pain in unspecified joint]Onset: 037533-17-0476TdcwrfabYeplp non-traumatic joint disorders (20 sources)Pain in left shoulder; Translations: [Pain in joint, shoulder region]Onset: 706831-42-2041QhzmhkhaDnfza screening for suspected conditions (not mental disorders or infectious disease) (20 sources)Liver function tests abnormal; Translations: [Abnormal results of liver function studies]Onset: 10-21-6170OvnpogplXokekntbpp disorders (not diabetes) (20 sources)Idiopathic acute pancreatitis; Translations: [Idiopathic acute pancreatitis without necrosis or infection]Onset: 852257-04-1357Gennchyk Pneumonia (except that caused by tuberculosis or sexually transmitted disease) (20 sources)Infective pneumonia; Translations: [Pneumonia, unspecified organism] Onset: 852786-02-0810DdveetumQbtfrtqq codes; unclassified (20 sources)Tobacco user; Translations: [Tobacco use]Onset: EpisodicResidual codes; unclassified (3 sources)Tobacco use; Translations: [Tobacco use]Onset: 51-41-1937Waaaqume Spondylosis; intervertebral disc disorders; other back problems (20 sources)Lumbago with sciatica; Translations: [Lumbago with sciatica, left side]Onset: 51-29-9704BvwkytfzDbobuxe (20 sources)Situational syncope; Translations: [Syncope and collapse]Onset: 26-86-9125SiyifhepPjvleqbcslgb (1 source)LOW BACK PAIN, UNSPECIFIED; Translations: [LOW BACK PAIN, UNSPECIFIED] Onset: 11-25-1767Egkencztftmf (1 source)Acute pain of right initisan10-19-8634Czfvbkuedgtg (1 source)Acute pain of left zkabdqjj27-94-6526 Results Test NameValueInterpretationReference RangeFacilityMRI SHOULDER LEFT WO CONTRAST on 39-93-0945TPA SHOULDER LEFT WO CONTRASTEXAMINATION: MRI OF THE LEFT SHOULDER WITHOUT CONTRAST 07/29/2025 2:41 pm TECHNIQUE: Multiplanar multisequence MRI of the left shoulder was performed without the administration of intravenous contrast. COMPARISON: Left shoulder radiographs from 07/21/2023 HISTORY: ORDERING SYSTEM PROVIDED HISTORY: Acute pain of left shoulder 50-year-old female with acute left shoulder pain FINDINGS: ROTATOR CUFF: Subacromial subdeltoid bursa contiguous with the glenohumeral joint. Irregular full-thickness tearing of mid anterior-mid supraspinatus along the footplate with mild retraction of the torn fibers measuring up to 6 mm on image 4, series 4. Multifocal less than and up to 50% partial-thickness interstitial and articular-surface tearing of posterior supraspinatus and anterior-mid infraspinatus between musculotendinous junction and footplate. Moderate underlying supraspinatus and infraspinatus tendinosis. Low-grade partial-thickness articular-surface and interstitial tearing of the insertional fibers of subscapularis Teres minor muscle/tendon appears intact No significant atrophy or fatty degeneration of the visualized rotator cuff musculature. BICEPS TENDON: Intact vertical and horizontal portions of the long head of the biceps tendon. LABRUM: Mild diffuse labral degeneration. GLENOHUMERAL JOINT: Mild spurring at the margins of the glenohumeral joint. Mild to moderate glenohumeral chondromalacia. Inferior glenohumeral appears intact. No sizable glenohumeral joint effusion. AC JOINT AND ACROMIOCLAVICULAR ARCH: Mild degenerative change of the left AC joint. Type 2 acromion. BONE MARROW: Red marrow reconversion. No acute fracture or dislocation. OUTLET SPACES: Suprascapular notch and quadrilateral space grossly unremarkable in appearance No left axillary lymphadenopathy. IMPRESSION: 1. Irregular full-thickness tearing of mid anterior-mid supraspinatus along the footplate with mild retraction of the torn fibers measuring up to 6 mm. 2. Multifocal less than and up to 50% partial-thickness interstitial and articular surface tearing of posterior supraspinatus and anterior-mid infraspinatus between musculotendinous junction and footplate. Moderate underlying supraspinatus and infraspinatus tendinosis. 3. Low-grade partial-thickness articular-surface and interstitial tearing of the insertional fibers of subscapularis. 4. Mild diffuse labral degeneration. 5. Mild glenohumeral osteoarthrosis. Mild to moderate glenohumeral chondromalacia. 6. Mild degenerative change of the left AC joint. Interpreted by: Santiago Ngo MD Signed by: Santiago Ngo MD 08/05/25 Final resultNormalMercy [facility] SHOULD[facility] RIGHT WO CONTRASTon 11-12-5097BBZ SHOULDER RIGHT WO CONTRASTEXAMINATION: MRI OF THE RIGHT SHOULDER WITHOUT CONTRAST 07/29/2025 2:42 pm TECHNIQUE: Multiplanar multisequence MRI of the right shoulder was performed without the administration of intravenous contrast. COMPARISON: None. HISTORY: ORDERING SYSTEM PROVIDED HISTORY: Acute pain of right shoulder 50-year-old female with acute right shoulder pain FINDINGS: ROTATOR CUFF: Small amount of fluid in the subacromial subdeltoid bursa. Less than and up to 50% partial-thickness articular-surface and interstitial tearing of posterior supraspinatus in the region of the critical zone on image 11, series 4. Moderate underlying supraspinatus tendinosis. Low-grade partial-thickness tearing of posterior infraspinatus along the footplate on image 8, series 4. Nyik-sz-suhsjkjq underlying infraspinatus tendinosis. Less than and up to 50% partial-thickness articular-surface and interstitial tearing of the insertional fibers of subscapularis. Teres minor muscle/tendon appears intact. No significant atrophy or fatty degeneration of visualized rotator cuff musculature. BICEPS TENDON: Intact vertical and horizontal portions of the long head of the biceps tendon. LABRUM: Mild diffuse labral degeneration. GLENOHUMERAL JOINT: Mild glenohumeral chondromalacia. Mild osteophyte spurring at the margins of the glenohumeral joint. Inferior glenohumeral appears intact. No sizable glenohumeral joint effusion. AC JOINT AND ACROMIOCLAVICULAR ARCH: Foreshortening of the distal clavicle with associated susceptibility artifact consistent with prior distal clavicular resection. Type 2 acromion. Postoperative widening of the AC joint. BONE MARROW: Red marrow reconversion. Subcortical cystic change at the anterior humeral head. No acute displaced fracture or dislocation. OUTLET SPACES: Suprascapular notch and quadrilateral space grossly unremarkable in appearance No right axillary lymphadenopathy. IMPRESSION: 1. Less than and up to 50% partial-thickness articular-surface and interstitial tearing of posterior supraspinatus in the region of the critical zone. Moderate underlying supraspinatus tendinosis. 2. Low-grade partial-thickness tearing of posterior infraspinatus along the footplate. Gtyl-pt-rvsxklnb underlying infraspinatus tendinosis. 3. Less than and up to 50% partial-thickness articular-surface and interstitial tearing of the insertional fibers of subscapularis. 4. Mild diffuse labral degeneration. 5. Mild glenohumeral osteoarthrosis. Mild glenohumeral chondromalacia. 6. Evidence of prior distal clavicular resection. 7. Red marrow reconversion. Interpreted by: Santiago Ngo MD Signed by: Santiago Ngo MD 08/05/25 Final resultNormalMercy Yale [facility]'S HospitalOtolaryngology Office/Clinic Noteon [id number] Office/Clinic NoteChief Complaint PT states, I'm here for a follow up for chronic ZHOU, Bilateral and CT results. History of Present Illness Patient presents today as a follow-up for chronic nasal congestion, chronic allergic rhinitis and chronic sinusitis. According patient she is not having any ear pain or otorrhea but she continues to have significant congestion and sinus pressure she states this is quite bothersome for her and nothing she has done so far is giving her any relief. She is on Dymista nasal spray, Singulair, Xyzal, immunotherapy, and nasal saline rinses she has also had multiple courses of oral antibiotics and oral corticosteroids with no relief. She had a CT sinus which was reviewed by me personally and discussedwith the patient this shows significant leftward septal deviation, hypertrophy of the inferior turbinates bilaterally, mucosal thickening of the anterior ethmoids as well as mucosal thickening with air-fluid level and bubbling in the right sphenoid sinus Physical Exam Vitals & Measurements T: 36.6 ?C (Temporal Artery) HR: 84 (Peripheral) BP: 135/74 WT: 105.6 kg (Dosing) WT: 105.6 kg General: No acute distress, alert and oriented x3 Voice: Appropriate for age. Normal tone, volume, and projection noted. Head: Normocephalic atraumatic, no abnormal masses or lesions noted Face: Facial function symmetric and equal bilaterally. Ears: External ears and mastoids appear normal bilaterally. Nose: External nasal dorsum is straight. Mouth: Dentition is good. Oral tongue has normal mobility Oropharynx: Posterior oropharynx shows no abnormal masses or lesions. Neck: Neck is supple. Laryngeal crepitus is normal. The following additional exam findings were noted today: Congested intranasal anatomy with hypertrophy of the inferior turbinates and leftward septal deviation Additional Vitals BP Position/Location: Sitting, Right arm Assessment/Plan Chronic allergic rhinitis Chronic nasal congestion Chronic sinusitis of both maxillary sinuses Unfortunately the patient has not had any relief of her chronic nasal congestion, chronic allergic rhinitis and chronic sinusitis despite maximal medical management with Dymista nasal spray 1 spray each nostril twice daily, Singulair, Xyzal, immunotherapy and nasal saline rinses. She is also had mul tiple courses of oral antibiotics and oral corticosteroids. The results of her CT I recommended septoplasty with SMR and outfracture of the inferior turbinatesbilaterally, right ethmoidectomy and sphenoidotomy with removal of diseased tissue and left anterior ethmoidectomy. The risks, benefits, alternatives, and expected recovery course following surgery were discussed with the patient today. The need for postoperative Berg splints was also discussed. Specifically, the very rare risks of bleeding, infection, the need for more surgery, poor functional or cosmetic result, abnormal scarring, septal perforation, and CSF leak were discussed. He understands and agrees and would like to proceed. The risks, benefits, alternatives, and expectations following surgery, as well as the typical postoperative recovery and follow-up course, were discussed with the patient. The rare risks of damage tothe eye and/or brain structures, resulting in vision change, double vision, blurred vision, blindness, CSF leak, brain damage, change in smell or taste, and severe bleeding were all discussed today. The patient understands these risks and would like to proceed with surgery. Additionally, there does appear to be an active infection in the sphenoid sinus I will send in a course of moxifloxacin. Orders: moxifloxacin, 1 tabs, Oral, Daily, X 14 days, # 14 tabs, 0 Refill(s), 08/19/25 14:20:00 [facility], [place], Pharmacy: [facility] [id number] Provider Comments This note was generated using voice recognition software. Though proofreading has been done, there is still a chance of some unintentional typos and/or errors. Problem List/Past Medical History Ongoing Diabetes mellitus Hyperlipidemia Obesity, class 2 Overweight Historical Obesity Procedure/Surgical History Kidney Stents for Kidney stones Pelvic reconstruction right shoulder Medications acetaminophen Albuterol (Eqv-ProAir HFA) 90 mcg/inh inhalation aerosol, 9 g, 0 Refill(s), INHALE 2 PUFFS BY MOUTHINTO THE LUNGS 4 TIMES DAILY NEEDED FOR WHEEZING alendronate 70 mg oral tablet, 70 mg= 1 tabs, Oral, Weekly Aspir 81 oral delayed release tablet, 81 mg= 1 tabs, Oral, Daily atorvastatin 40 mg oral tablet, 30 EA, 0 Refill(s), TAKE 1 TABLET BY MOUTH NIGHTLY AT BEDTIME azelastine-fluticasone nasal, Nasal, BID BD U/F SHORT PEN [id number], See Instructions, USE 5 TIMES A DAY FOR INSULIN INJECTIONS cetirizine 10 mg oral tablet, 30 EA, 0 Refill(s), TAKE 1 TABLET BY MOUTH ONCE DAILY diclofenac sodium 75 mg oral delayed release tablet, 60 EA, 0 Refill(s), TAKE 1 TABLET BY MOUTH TWICE DAILY NEEDED DME - Supplies, N/A, N/A, 5x/Day, 15 refills, 2 Freestyle sensors to use (more content not included)...NormalFostoria City HospitalGlucose, Whole Blood on [id number] [Mass/Vol]239 mg/uDUyju05 - 100 mg/dLBon [facility] HospitalInterpretation and review of laboratory resultsAbnoBowdle HospitalGlucose [Mass/Vol]239 mg/wLFaws85-923EpidfSelect Medical Specialty Hospital - AkronGlucose [Mass/Vol]313 mg/mVFsfw17 - 100 mg/dLBon [facility] Interpretation and review of laboratory resultsAbnoAvera Dells Area Health CenterGlucose [Mass/Vol]313 mg/sXVbmz93-110Jvxih [facility] HospitalOPERATIVE REPORTon [id number] [id number] OPERATIVE REPORT PATIENT NAME:VIRGIL WARNER :1975 MED REC NO:[id number] ROOM:[facility] ACCOUNT NO:[id number] ADMIT DATE:07/23/2025 PROVIDER:Florida Everett MD DATE OF PROCEDURE: 07/23/2025 SURGEON: Florida Everett MD TOOL FILER HAND: None. PREOPERATIVE DIAGNOSIS: Left renal calculus. POSTOPERATIVE DIAGNOSIS: Left renal calculus. PROCEDURE: Left extracorporeal shockwave lithotripsy. ANESTHESIA: General. COMPLICATIONS: None. ESTIMATED BLOOD LOSS: Minimal. SPECIMENS: None. PROSTHESIS: None. DISPOSITION: Stable. FINDINGS: 6 mm left renal stone. INDICATIONS: The patient is a 50-year-old female with known left stones, here now for definitive therapy. DESCRIPTION OF PROCEDURE: The patient was taken back to the operating room after informed consent, including all risks, benefits, and alternatives were obtained. The patient was transferred from the [facility] onto the operative table where she was induced under general anesthesia, given IV Ancef for preoperative antibiotic prophylaxis. To begin the case, the patient was placed in the supine positionon the lithotripsy table. Stone was identified on biplanar fluoroscopy. We were then able to ablatethe stone. We did use 3000 shocks. Power level ranged between 3 and 7, frequency between 60 and 90.3000 shocks were delivered into the treatment and saw fluoroscopic ablation of the calculus. She was then awoken from general anesthesia and transferred to [facility], and taken to PACU in satisfactory condition by Nursing and Anesthesia teams. PLAN: The patient will be discharged home per PACU criteria and followup with us in 3 months for repeat KUB. FLORIDA EVERETT MD CHRIS/ERI Doc#: [id number] Hospitals [facility] SINUS WO CONTRASTon [id number] SINUS WO CONTRASTEXAMINATION: CT OF THE SINUS WITHOUT CONTRAST 07/17/2025 2:45 pm TECHNIQUE: CT of the sinuses was performed without the administration of intravenous contrast. Multiplanar reformatted images are provided for review. Automated exposure control, iterative reconstruction, and/or weight based adjustment of the mA/kV was utilized to reduce the radiation dose to as low as reasonably achievable. COMPARISON: 07/02/2024 HISTORY: ORDERING SYSTEM PROVIDED HISTORY: Chronic nasal congestion TECHNOLOGIST PROVIDED HISTORY: Is the patient ?->No FINDINGS: SINUSES/MASTOIDS: The maxillary,ethmoid and frontal sinuses are clear. Right frontal sinus remains poorly pneumatized. Partial opacification of the sphenoid sinus with an air-fluid level suggesting acute sinusitis. Mild nasal mucosal hypertrophy. The bilateral ostiomeatal units are essentially patent. Slight leftward deviation nasal septum. Ethmoid roofs are symmetric. The visualized mastoid air cells are well aerated. SOFT TISSUES: Visualized soft tissues demonstrate no acute abnormality. Similar punctate retinal calcification by the left optic nerve which may represent optic disc drusen. The visualized portion of the intracranial contents demonstrate no gross acute abnormality. IMPRESSION: Sphenoid sinusitis. Interpreted by: Efra Sullivan MD Signed by: Efra Sullivan MD 07/21/25 Final resultNoToledo HospitalXR ABDOMEN (KUB) (SINGLE AP VIEW)on [id number] ABDOMEN (KUB) (SINGLE AP VIEW)EXAMINATION: ONE SUPINE XRAY VIEW(S) OF THE ABDOMEN 06/27/2025 5:04 pm COMPARISON: None. HISTORY: ORDERING SYSTEM PROVIDED HISTORY: Renal calculus TECHNOLOGIST PROVIDED HISTORY: stones FINDINGS: Bowel gas pattern nonobstructed. Renal shadows partially obscured by bowel gas and fecal debris. 2-3 mm left nephrolithiasis. No definite right renal or ureteral stones. No acute osseous abnormality. IMPRESSION: Left nephrolithiasis. Interpreted by: Ruddy Mallory DO Signed by: Ruddy Mallory DO 07/04/25 Final resultNoToledo HospitalCult,Urineon [id number],UrineSpecimen Description .CLEAN CATCH URINE Special Requests Site: Urine Culture NO SIGNIFICANT GROWTH Report Status FINAL 06/29/2025Ohio[facility] Arthur G.H. Bing, MD, Cancer CenterComment on above: Performed By: #### CP, MG, TROPI #### [facility] [address] [place] [address] [place] [address] Take Down Inspector: Phillip Camarena MDUrinalysis w/ Microon [id number]+Abnormal NONESelect Medical Specialty Hospital - AkronComment on above:Performed By: #### CP, MG, TROPI #### [facility] [address] [place] [address] [place], [place] [id number] Take Down Inspector: Phillip Camarena MDBilirubin, SemiQt,UrNegativeNormalNEGSelect Medical Specialty Hospital - AkronComment on above:Performed By: #### CP, MG, TROPI #### [facility] [address] [place] [address] [place] [address] Take Down Inspector: Billy Tran, UrineNegativeRegency Hospital Toledo Comment on above:Performed By: #### CP, MG, TROPI #### [address] [place], [place] [id number] Take Down Inspector: DAVID Tranlarity (ClearNormalCLEARSelect Medical Specialty Hospital - Akron Comment on above:Performed By: #### CP, MG, TROPI #### [facility] [address] [place] [address] [place] [address] Take Down Inspector: DAVID Tranolor ()YellowNoVan Wert County Hospital Comment on above:Performed By: #### CP, MG, TROPI #### [facility] [address] [place] [address] [place], [place] [id number] Take Down Inspector: Phillip Camarena MDEpithelial cells LM Ql (Urine sed)2 TO 5Dkuspc4-88 [facility] Hospital - AkronComment on above:Performed By: #### CP, MG, TROPI #### [facility] [address] [place] [address] [place] [place], [place] [id number] Take Down Inspector: Phillip Camarena MDGlucose Ql (U)3+ mg/dLAbnormalCleveland Clinic FoundationComment on above:Performed By: #### CP, MG, TROPI #### [facility] [address] [place] [address] [place] [address] Take Down Inspector: Phillip Camarena MDKetones Ql (U)NegativeNormalNEGSelect Medical Specialty Hospital - AkronComment on above:Performed By: #### CP, MG, TROPI #### [facility] [address] [place] [address] [place] [address] Take Down Inspector: Phillip Camarena MDLeukocyte esterase Test strip Ql (U)NegativeNormal NEGMercy Little River HospitalComment on above:Performed By: #### CP, MG, TROPI #### [facility] [address] [place] [address] [place] [address] Take Down Inspector: Ania Trantrite,UrNegativeRegency Hospital Toledo Comment on above:Performed By: #### CP, MG, TROPI #### [facility] [address] [place] [address] [place] [address] Take Down Inspector: BENY Tran,Ur6.6Bmedzw9.0-9.0Select [facility] Specialty Hospital - AkronComment on above:Performed By: #### CP, MG, TROPI #### [facility] [address] [place] [address] [place] [address] Take Down Inspector: Mira Tran Ql (U)NegativeNormalNEGSelect Medical Specialty Hospital - AkronComment on above:Performed By: #### CP, MG, TROPI #### [facility] [address] [place] [address] [place] [address] Take Down Inspector: LAY Tranpec. [place],Ur1.755Vaitfq4.010-1.020Select [facility] Specialty Hospital - AkronComment on above:Performed By: #### CP, MG, TROPI #### [facility] [address] [place] [address] [place] [address] Take Down Inspector: Janessa Tran RBC's0 TO 4Gsnkdt1-1Kajvp [facility] Comment on above:Performed By: #### CP, MG, TROPI #### [facility] [address] [place] [address] Take Down Inspector: Phillip Camarena MDUrine WBC's0 TO 3Kybfae9-9CklubSelect Medical Specialty Hospital - [place]ron Comment on above:Performed By: #### CP, MG, TROPI #### [facility] [address] [place] [address] Take Down Inspector: Phillip Camarena MDUrobilinogen,UrNormalNormal0.0-1.0[facility] Hospital - AkronComment on above:Performed By: #### SAMIA, MG, TROPI #### [facility] [address] [place] [address] Take Down Inspector: Phillip Camarena MDCTA ABDOMEN W WO CONTRASTon [id number] ABDOMEN W WO CONTRASTEXAM: CTA ABDOMEN AND PELVIS WITH AND WITHOUT CONTRAST 06/14/2025 05:45:59 PM TECHNIQUE: CTA images of the abdomen and pelvis without and with intravenous contrast. Three-dimensional MIP/volume rendered formations were performed. Automated exposure control, iterative reconstruction, and/or weight based adjustment of the mA/kV was utilized to reduce the radiation dose to as low as reasonably achievable. COMPARISON: XR Abdomen 01/27/2021; CT Abdomen Pelvis 07/30/2019. CLINICAL HISTORY: Lightheaded; Dizziness; Elevated CK; History of syncope; Essential hypertension; Tobacco abuse; Mixed hyperlipidemia; SOB (shortness of breath). FINDINGS: VASCULATURE: The renal arteries are well visualized with no evidence of renal artery stenosis. There is an accessory renal artery on the right perfusing the inferior pole of the right kidney. GI BLEED: No active extravasation of contrast within the GI tract. AORTA: No acute finding. No abdominal aortic aneurysm. No dissection. CELIAC TRUNK: No acute finding. No occlusion or significant stenosis. SUPERIOR MESENTERIC ARTERY: No acute finding. No occlusion or significant stenosis. INFERIOR MESENTERIC ARTERY: No acute finding. No occlusion or significant stenosis. RENAL ARTERIES: The renal arteries are well visualized with no evidence of renal artery stenosis. There is an accessory renal artery on the right perfusing the inferior pole of the right kidney. ILIAC ARTERIES: No acute finding. No occlusion or significant stenosis. ABDOMEN/PELVIS: LOWER CHEST: Visualized portion of the lower chest demonstrates no acute abnormality. LIVER: The liver is unremarkable. GALLBLADDER AND BILE DUCTS: Gallbladder is unremarkable. No biliary ductal dilatation. SPLEEN: The spleen is unremarkable. PANCREAS: The pancreas is unremarkable. ADRENAL GLANDS: Bilateral adrenal glands demonstrate no acute abnormality. KIDNEYS, URETERS AND BLADDER: Left nephrolithiasis: a 5 mm stone in the lower pole calyx of the left kidney. Punctate 1 mm stone in the lower pole calyx of the right kidney and similarly punctate stone in the upper pole calyx of the right kidney. No obstructive uropathy. No hydronephrosis. No perinephric or periureteral stranding. Urinary bladder is unremarkable. GI AND BOWEL: Stomach and duodenal sweep demonstrate no acute abnormality. There is no bowel obstruction. No abnormal bowel wall thickening or distension. REPRODUCTIVE: Reproductive organs are unremarkable. PERITONEUM AND RETROPERITONEUM: No ascites or free air. LYMPH NODES: No lymphadenopathy. BONES AND SOFT TISSUES: No acute abnormality of the bones. No acute soft tissue abnormality. IMPRESSION: 1. Left nephrolithiasis with a 5 mm stone in the lower pole calyx. No obstructive uropathy. 2. Punctate 1 mm stone in the lower pole calyx and a similar stone in the upper pole calyx of the right kidney. 3. Accessory renal artery on the right perfusing the inferior pole of the right kidney. No evidenceof renal artery stenosis on either side . Interpreted by: Arlin Freed MD Signed by: Arlin Freed MD 06/18/25 Final resultNormalMerDanbury Hospital Metabolic Panelon [id number], Glom Filt Qgqz82Uuu- PINFBon [facility] HospitalComment on above: These results are not intended [...] following therapy that affects renal tubular secretion. Interpretation and review of laboratory resultsAbnormalCarilion Clinic St. [facility] Hospital Urea nitrogen/Creatinine [Mass ratio]17 mg/mg - [facility] HospitalBasic Metabolic Profon [id number] gap [Moles/Vol]14 mmol/LNormal9-16Bon [facility] on above:Performed By: #### CP, MG, TROPI #### [address] [place] [address] Take Down Inspector: CHERELLE Tran/CRE Mgcgz40Rlgwqk9-95Nwuvp [facility] Comment on above:Performed By: #### CP, MG, TROPI #### [address] [place] [address] Take Down Inspector: DAVID Tranalcium [Mass/Vol]9.7 mg/dLNormal8.6-10.4Bon [facility] on above:Performed By: #### CP, MG, TROPI #### [address] [place] [address] Take Down Inspector: DAVID Tranhloride [Moles/Vol]103 mmol/GDtfbkv71-464OmySentara Princess Anne Hospital on above:Performed By: #### CP, MG, TROPI #### [address] [place] [address] Take Down Inspector: Phillip Camarena MDCO2 [Moles/Vol]22 mmol/HHizgut05-13Zrm [facility] on above:Performed By: #### CP, MG, TROPI #### [address] [place] [address] Take Down Inspector: DAVID Tranreatinine [Mass/Vol]1.2 mg/dLHigh0.50-0.90[facility] on above:Performed By: #### CP, MG, TROPI #### [address] [place], [place] [address]83 Take Down Inspector: Phillip Sturtz, MDGFR/1.73 sq M.predicted among non-blacks MDRD (S/P/Bld) [Vol rate/Area]57 mL/min/{1.73_m2}Low>60[facility] on above:Result Comment: These results are not intended for [...] or following therapy that affects renal tubular secretion.Performed By: #### CP, MG, TROPI #### [address] [place] [address] Take Down Inspector: Phillip Camarena MDGlucose [Mass/Vol]233 mg/tMNmsz03-97Cpf [facility] on above:Performed By: #### SAMIA, MG, TROPI #### [address] [place] [id number] Take Down Inspector: BENY Tranotassium [Moles/Vol]4.5 mmol/LNormal3.7-5.3Bon [facility] on above:Performed By: #### CP, MG, TROPI #### [address] [place], [place] [address] Take Down Inspector: LAY Tranodium [Moles/Vol]139 mmol/KJpvmpf964-153Cxn [facility] on above:Performed By: #### CP, MG, TROPI #### [address] [place] [address] Take Down Inspector: Phillip Camarena MDUrea nitrogen [Mass/Vol]20 mg/dLNormal6-20Bon [facility] on above:Performed By: #### CP, MG, TROPI #### [address] [place], [facility] Take Down Inspector: Phillip Camarena MDOtolaryngology Office/Clinic Noteon 06-10-2025 Otolaryngology Office/Clinic NoteChief Complaint PT states, I'm here for chronic ZHOU bilateral. History of Present Illness Patient presents today for chronic left-sided middle ear effusion and acute otitis media. Accordingto the patient she has had ear fullness pain popping and clicking. She states she presented to her PCP for this and was diagnosed with acute otitis media she was given an oral antibiotic and this didnot give her any relief she was then given another course of oral antibiotics with no relief. She feels fullness and pressure but she has not had any diminished hearing. She has been afebrile. She does have a history of chronic nasal congestion, chronic allergic rhinitis and chronic sinusitis she is using Dymista nasal spray 1 spray to each nostril twice daily as well as Xyzal and Singulair and doing allergy immunotherapy. Despite this she continues to not be able to breathe well through her nose and she has sinus pressure and a history of recurrent infections she states that has been ongoingfor 2 years. She has been on multiple courses of oral antibiotics, oral corticosteroids and is using nasal saline with no relief. Patient states that she also has imbalance she has neuropathy, muscleweakness, back weakness as well as a recent broken foot and surgery. She has been evaluated by her physical therapist and was told there is no evidence of BPPV or nystagmus. Her PCP told her that herimbalance was likely due to her ear infections. This did not improve with antibiotic use either. Physical Exam Vitals & Measurements T: 36.7 ?C (Temporal Artery) HR: 79 (Peripheral) BP: 129/70 HT: 165 cm WT: 102.8 kg (Dosing) WT: 102.8 kg BMI: 37.76 General: No acute distress, alert and oriented x3 Voice: Appropriate for age. Normal tone, volume, and projection noted. Head: Normocephalic atraumatic, no abnormal masses or lesions noted Face: Facial function symmetric and equal bilaterally. Ears: External ears and mastoids appear normal bilaterally. Nose: External nasal dorsum is straight. Mouth: Dentition is good. Oral tongue has normal mobility Oropharynx: Posterior oropharynx shows no abnormal masses or lesions. Neck: Neck is supple. Laryngeal crepitus is normal. The following additional exam findings were noted today: The otic microscope was used today based on the patient's presenting complaint, ear canals and tympanic membranes are unremarkable TMs are clear. Patient has congested intranasal anatomy with hypertrophy of the inferior turbinates and leftward septal deviation. Tympanometry showed type a tympanograms bilaterally. Bimanual palpation of the TMJ reveals point tenderness over the condyle as well as significant tenderness upon palpation of the anterior border of the masseter muscle and the region ofthe coronoid process. Additional Vitals No qualifying data available. Assessment/Plan Chronic allergic rhinitis Ordered: CT Sinus w/o Contrast + Surg Navigate Chronic nasal congestion Ordered: CT Sinus w/o Contrast + Surg Navigate Chronic sinus complaints Ordered: CT Sinus w/o Contrast + Surg Navigate Ear pain Imbalance Ordered: Referral to Physical Therapy TMJ arthralgia I informed the patient that her ear pain pressure and fullness is not due to recurrent acute otitismedia or middle ear effusions. Her ear canals and tympanic membranes are unremarkable. She has typea tympanograms bilaterally. And her symptoms are not consistent with middle ear effusion or acute otitis media. I feel this is due to TMJ arthralgia. Exam is consistent with TMJ. Recommend she discuss this with her dentist. I explained to the patient that her imbalance is likely due to musculoskeletal issues, neuropathy as well as deconditioning and recent injury. Will place a referral to physical therapy. Additionally patient has not had any improvement in her chronic nasal congestion or chronic sinusitis despite Dymista nasal spray, Singulair, Xyzal, immunotherapy, oral antibiotics, oral antihistamines and nasal saline rinses. I recommended CT sinus to evaluate the extent of her sinus disease. Will have her return in 6 weeks to discuss the results as well as assess her response to physical therapy Orders: External Referral Provider Comments This note was generated using voice recognition software. Though proofreading has been done, there is still a chance of some unintentional typos and/or errors. Problem List/Past Medical History Ongoing Diabetes mellitus Hyperlipidemia Obesity, class 2 Overweight Historical Obesity Procedure/Surgical History Kidney Stents for Kidney stones Pelvic reconstruction right shoulder Medications acetaminophen Albuterol (Eqv-ProAir HFA) 90 mcg/inh inhalation aerosol, 9 g, 0 Refill(s), INHALE 2 PUFFS BY MOUTHINTO THE LUNGS 4 TIMES DAILY NEEDED FOR WHEEZING alendronate 70 mg oral tablet, 70 mg= 1 tabs, Oral, Weekly Aspir 81 oral delayed release tablet, 81 mg= 1 tabs, Oral, Daily atorvastatin 40 mg oral tablet, 30 EA, 0 Refill(s), (more content not included)...[facility] HospitalBasic Metabolic Profon 95-97-9875Hoiuv gap [Moles/Vol]15 mmol/LNormal9-16[facility] HospitalComment on above:Performed By: #### LDLDIR, LIPR #### [facility] [address] [place] [address] Take Down Inspector: Melvin Santoyo MDBUN/CRE Ofhnd01Uwehtf8-68Vzhbv [facility] Comment on above:Performed By: #### LDLDIR, LIPR #### [facility] [address] [place] [address] Take Down Inspector: DAVID Schultzalcium [Mass/Vol]9.9 mg/dLNormal8.6-10.4[facility] HospitalComment on above:Performed By: #### LDLDIR, LIPR #### [facility] [address] [place], [place] [address] Take Down Inspector: DAVID Schultzhloride [Moles/Vol]102 mmol/ZJdmdky33-236Fbcow [facility] HospitalComment on above:Performed By: #### LDLDIR, LIPR #### [facility] [address] [place], [place] [address] Take Down Inspector: Melvin Santoyo MDCO2 [Moles/Vol]21 mmol/DYvtavp99-04Vgbfb [facility] HospitalComment on above:Performed By: #### LDLDIR, LIPR #### [facility] [address] [place], [place] [address] Take Down Inspector: Melvin Santoyo MDCreatinine [Mass/Vol]1.2 mg/dLHigh0.50-0.90[facility] HospitalComment on above:Performed By: #### LDLDIR, LIPR #### [facility] [address] [place] [address] Take Down Inspector: Melvin Santoyo MDGFR/1.73 sq M.predicted among non-blacks MDRD (S/P/Bld) [Vol rate/Area]56 mL/min/{1.73_m2}Low>60[facility] HospitalComment on above:Result Comment: These results are not intended for [...] or following therapy that affects renal tubular secretion.Performed By: #### LDLDIR LIPR #### [facility] [address] [place] [address] Take Down Inspector: Melvin Santoyo MDGlucose [Mass/Vol]207 mg/pUAxhl21-75Mmfub [facility] HospitalComment on above:Performed By: #### AISHWARYA LIPR #### [facility] [address] [place] [address] Take Down Inspector: BENY Schultzotassium [Moles/Vol]4.4 mmol/LNormal3.7-5.3 [facility] HospitalComment on above:Performed By: #### AISHWARYA LIPR #### [facility] [address] [place] [address] Take Down Inspector: Melvin Santoyo MDSodium [Moles/Vol]138 mmol/EKkxnwx312-533Gjxnw [facility] HospitalComment on above:Performed By: #### LAKESHIADIVeda LIPR #### [facility] [address] [place] [address] Take Down Inspector: Melvin Santoyo MDUrea nitrogen [Mass/Vol]22 mg/dLHigh6-20[facility] HospitalComment on above:Performed By: #### LAKESHIADIVeda LIPR #### [address] [address] Take Down Inspector: Melvin Santoyo MDBrain Natri. Peptideon 31-13-6728Zdqjcptmhtt peptide B (Bld) [Mass/Vol]95 pg/mLNormal0-125[facility] HospitalComment on above:Performed By: #### LDLDIR, LIPR #### [address] [address] Take Down Inspector: DAVID SchultzBCmaría 08-98-5451Lmshangegas distribution width (RBC) [Ratio]13.3 %Orlrhs30.8-14.4[facility] HospitalComment on above: Performed By: #### LAKESHIADIVeda LIPR #### [address] [address] Take Down Inspector: Melivn Santoyo MDHematocrit (Bld) [Volume fraction]38.8 %Normal 36.3-47.1[facility] HospitalComment on above:Performed By: #### LDLDIVeda, LIPR #### [address] [address] Take Down Inspector: Melvin Santoyo MDHemoglobin (Bld) [Mass/Vol]12.4 g/dLNormal 11.9-15.1[facility] HospitalComment on above:Performed By: #### LDLDIVeda, LIPR #### [address] [address] Take Down Inspector: KATHIE SchultzCH (RBC) [Entitic mass]31.0 hbTyciks68.2-33.5 [facility] HospitalComment on above:Performed By: #### LDLDIR, LIPR #### [address] [address] Take Down Inspector: KATHIE SchultzCHC (RBC) [Mass/Vol]32.0 g/xRXmgtla01.4-34.8 [facility] HospitalComment on above:Performed By: #### LDLDIR, LIPR #### [address] [address] Take Down Inspector: KATHIE SchultzCV (RBC) [Entitic vol]97.0 qIMucxla83.6-102.9 [facility] HospitalComment on above:Performed By: #### LDLDIR, LIPR #### [address] [address] Take Down Inspector: MAYDA Schultz Automated0.0 per 100 WBCNormal0.0[facility] HospitalComment on above:Performed By: #### LDLDIR, LIPR #### [address] [address] Take Down Inspector: Dillon Schultztecory mean volume (Bld) [Entitic vol]9.8 fL Normal8.1-13.5[facility] Hospital - AkronComment on above:Performed By: #### LDLDIR, LIPR #### [address] [address] Take Down Inspector: Dillon Schultztepedro (Bld) [#/Vol]364 10*3/lCFqnnpw569-259 [facility] HospitalComment on above:Performed By: #### LDLDIR, LIPR #### [address] [address] Take Down Inspector: MANDEEP SchultzBC (Bld) [#/Vol]4.00 10*6/uLNormal3.95-5.11 [facility] HospitalComment on above:Performed By: #### LDLDIR, LIPR #### [address] [address] Take Down Inspector: PING Schultz (Bld) [#/Vol]7.4 10*3/uLNormal3.5-11.3MSt. Rita's Hospital HospitalComment on above:Performed By: #### LAKESHIADIR, LIPR #### [facility] [address] [place], [place] [address] Take Down Inspector: Kinza Schultz Metab w/rfx MGon 25-59-7806Vwgdk gap [Moles/Vol]12 mmol/LNormal9-16MerMer[facility] Willard Hospital HospitalComment on above:Performed By: #### CP, MG, TROPI #### [address] [place] [address] Take Down Inspector: Phillip Camarena MDBUN/CRE Irhaj29Sabx6-37VnlsvSelect Medical Specialty Hospital - [place]ron Comment on above:Performed By: #### CP, MG, TROPI #### [address] [place], [place] [address]83 Take Down Inspector: DAVID Tranalcium [Mass/Vol]8.7 mg/dLNormal8.6-10.4MerMercy Health Willard Hospital HospitalComment on above:Performed By: #### CP, MG, TROPI #### [address] [place], [place] [address] Take Down Inspector: DAVID Tranhloride [Moles/Vol]107 mmol/KPutsyi16-407Nhlzm [facility] HospitalComment on above:Performed By: #### CP, MG, TROPI #### [address] [place] [address] Take Down Inspector: Phillip Camarena MDCO2 [Moles/Vol]20 mmol/NTivjkq05-45Rxwmo [facility] HospitalComment on above:Performed By: #### CP, MG, TROPI #### [address] [place], [place] [address] Take Down Inspector: Phillip Camarena MDCreatinine [Mass/Vol]1.1 mg/dLHigh0.50-0.90MerMercy Health Willard Hospital HospitalComment on above:Performed By: #### CP, MG, TROPI #### [address] [place] [address] Take Down Inspector: Phillip Camarena MDGFR/1.73 sq M.predicted among non-blacks MDRD (S/P/Bld) [Vol rate/Area]59 mL/min/{1.73_m2}Low>60[facility] HospitalComment on above:Result Comment: These results are not intended for [...] or following therapy that affects renal tubular secretion.Performed By: #### CP, MG, TROPI #### [address] [place] [address] Take Down Inspector: Phillip Camarena MDGlucose [Mass/Vol]118 mg/yQPatl65-39Fvzpa Little River HospitalComment on above:Performed By: #### CP, MG, TROPI #### [address] [place] [address] Take Down Inspector: BENY Tranotassium [Moles/Vol]5.2 mmol/LNormal3.7-5.3Mkettering health hamiltony Little River HospitalComment on above:Performed By: #### CP, MG, TROPI #### [address] [place] [address] Take Down Inspector: Phillip Camarena MDSodium [Moles/Vol]139 mmol/FZweoeg469-181CneozSelect Medical Specialty Hospital - AkronComment on above:Performed By: #### CP, MG, TROPI #### [address] [place] [address] Take Down Inspector: Phillip Camarena MDUrea nitrogen [Mass/Vol]33 mg/dLHigh6-20MerMercy Health Willard Hospital HospitalComment on above:Performed By: #### CP, MG, TROPI #### [facility] [address] [place] [address] Take Down Inspector: Phillip Camarena MDY[facility] Metabolic Panel w/ Reflex to MGon 05-31-2025 Anion gap [Moles/Vol]12 mmol/L9 - 16 mmol/LBon SecOchsner Medical Center HealthCalcium [Mass/Vol]8.7 mg/dL8.6 - 10.4 mg/dLBon SecLourdes Medical CenterAsia [employer] Berhad HealthChloride [Moles/Vol] 107 mmol/L98 - 107 mmol/LBon Secours [facility] Medical CenterCO2 [Moles/Vol]20 mmol/L20 - 31 mmol/LBon [facility] HospitalCreatinine [Mass/Vol]1.1 mg/dLHigh0.50 - 0.90 mg/dLBon [facility] CenterAsia Bioenergy Technologies Berhad HealthEst, Glom Filt Rzuv85Xjv- PINFBon [facility] HospitalComment on above: These results are not intended [...] therapy that affects renal tubular secretion. Glucose [Mass/Vol]118 mg/iOYubd87 - 99 mg/dLBon St. Mary Regional Medical CenterRosetta Genomics Interpretation and review of laboratory resultsAbnormalBon [facility] Potassium [Moles/Vol]5.2 mmol/L3.7 - 5.3 mmol/LBon SecCincinnati VA Medical CenterSodium [Moles/Vol]139 mmol/L136 - 145 mmol/LBon [facility] HospitalUrea nitrogen [Mass/Vol]33 mg/dLHigh6 - 20 mg/dLBon [facility] HospitalUrea nitrogen/Creatinine [Mass ratio]30 mg/mgHigh9 - 20Bon [facility] HealthBon [facility] HospitalCBC auto differentialon [id number] (Bld) [#/Vol] 0.08 10*3/uLBon St. [facility] CenterAsia [employer]energy Technologies Berhad [facility] HospitalBasophils/100 WBC (Bld)1 %0 - 2 %Bon [facility] HospitalEosinophils (Bld) [#/Vol]0.36 10*3/uLBon [facility] Eosinophils/100 WBC (Bld)5 %High1 - 4 %[facility] HospitalErythrocyte distribution width (RBC) [Ratio]13.9 %11.8 - 14.4 %[facility] Hematocrit (Bld) [Volume fraction]35.1 %Low36.3 - 47.1 %[facility] Hemoglobin (Bld) [Mass/Vol]10.7 g/dLLow11.9 - 15.1 g/dLBon [facility] Immature granulocytes (Bld) [#/Vol]0.06 10*3/uLBon [facility] HospitalImmature granulocytes/100 WBC (Bld)1 %Ofop5QizCarilion Clinic St. Albans HospitalInterpretation and review of laboratory resultsAbnormalCarilion Clinic St. Albans HospitalLymphocytes/100 WBC (Bld)50 %High24 - 43 %[facility] HospitalLymphocytes/100 WBC (Bld)3.35 %[facility] Medical CenterH (RBC) [Entitic mass]30.5 pg25.2 - 33.5 pgBon Secours Memorial Regional Medical CenterHC (RBC) [Mass/Vol]30.5 g/dL28.4 - 34.8 g/dLBon [facility] HospitalV (RBC) [Entitic vol]100.0 fL82.6 - 102.[address] [facility] Hospital Monocytes/100 WBC (Bld)8 %3 - 12 %[facility] HospitalMonocytes/100 WBC (Bld)0.54 %[facility] HospitalNeutrophils/100 WBC (Bld)35 %Low36 - 65 %[facility] HospitalNucleated RBC/100 WBC (Bld) [Ratio]0.0 %0.0 per [address] Albans HospitalPlatelet mean volume (Bld) [Entitic vol]9.6 fL8.1 - 13.[address] [facility] HospitalPlatelets (Bld) [#/Vol]328 10*3/uLBon [facility] HospitalRBC (Bld) [#/Vol]3.51 10*6/uLLow3.95 - 5.11 m/uLBon [facility] Segmented neutrophils/100 WBC (Bld)2.38 %Bon [facility] HospitalWBC other (Bld) [#/Vol]6.8Bon [facility] HospitalBon [facility] HospitalCBC with Diffon [id number]. Basophil0.08 k/uLNormal0.00-0.20[facility] HospitalComment on above:Performed By: #### BMPX, CDP #### [address] [place] [address] Take Down Inspector: MDAbs. ChelseaImm.Granulocyte0.06 k/uLNormal0.00-0.30MerMercy Health Willard Hospital HospitalComment on above:Performed By: #### BMPX, CDP #### [address] [place], [facility]83 Take Down Inspector: Thao Tran.Neutrophil (Seg)2.38 k/uLNormal1.50-8.10MerMercy Health Willard Hospital HospitalComment on above:Performed By: #### BMPX, CDP #### [address] [place], [place] [address] Take Down Inspector: Phillip Camarena MDBasophils/100 WBC (Bld)1 %Normal0-2[facility] HospitalComment on above:Performed By: #### BMPX, CDP #### [address] [place], [place] [address] Take Down Inspector: Phillip Camarena MDEosinophils (Bld) [#/Vol]0.36 10*3/uLNormal 0.00-0.44MerMercy Health Willard Hospital HospitalComment on above:Performed By: #### BMPX, CDP #### [address] [place], [place] [address]83 Take Down Inspector: MOLLY Tranosinophils/100 WBC (Bld)5 %High1-4[facility] HospitalComment on above:Performed By: #### BMPX, CDP #### [address] [place] [address] Take Down Inspector: Phillip Camarena MDErythrocyte distribution width (RBC) [Ratio]13.9 % Jhzwug33.8-14.4[facility] HospitalComment on above:Performed By: #### BMPX, CDP #### [address] [place] [address] Take Down Inspector: Phillip Camarena MDHematocrit (Bld) [Volume fraction]35.1 %Low 36.3-47.1MercAshtabula County Medical Center HospitalComment on above:Performed By: #### BMPX, CDP #### [address] [place] [id number] Take Down Inspector: Phillip Camarena MDHemoglobin (Bld) [Mass/Vol]10.7 g/dLLow11.9-15.1 [facility] Hospital - AkronComment on above:Performed By: #### BMPX, CDP #### [address] [place] [address] Take Down Inspector: Phillip Camarena MDImmature granulocytes/100 WBC (Bld)1 %Hude7PpjieSelect Medical Specialty Hospital - AkronComment on above:Performed By: #### BMPX, CDP #### [address] [place], [facility]83 Take Down Inspector: Phillip Camarena MDLymphocytes (Bld) [#/Vol]3.35 10*3/uLNormal 1.10-3.70[facility] Hospital - AkronComment on above:Performed By: #### BMPX, CDP #### [address] [place], [place] [address] Take Down Inspector: Diego Tranmphocytes/100 WBC (Bld)50 %Lnvy84-54CcijrSelect Medical Specialty Hospital - AkronComment on above:Performed By: #### BMPX, CDP #### [address] [place] [address] Take Down Inspector: KATHIE TranCH (RBC) [Entitic mass]30.5 naRqhdhi86.2-33.5 [facility] Hospital - AkronComment on above:Performed By: #### BMPX, CDP #### [address] [place] [address] Take Down Inspector: KATHIE TranCHC (RBC) [Mass/Vol]30.5 g/xUZfuyhg55.4-34.8[facility] Hospital - AkronComment on above:Performed By: #### BMPX, CDP #### [address] [place] [address] Take Down Inspector: KATHIE TranCV (RBC) [Entitic vol]100.0 aRQrhato82.6-102.9 [facility] - AkronComment on above:Performed By: #### BMPX, CDP #### [address] [place] [address] Take Down Inspector: KATHIE Tranonocytes (Bld) [#/Vol]0.54 10*3/uLNormal0.10-1.20 [facility] Hospital - AkronComment on above:Performed By: #### BMPX, CDP #### [address] [place] [address] Take Down Inspector: KATHIE Tranonocytes/100 WBC (Bld)8 %Normal3-12[facility] Hospital - AkronComment on above:Performed By: #### BMPX, CDP #### [address] [place], [place] [address] Take Down Inspector: Phillip Camarena MDNeutrophil (Seg)35 %Nfb12-24NhhfpSelect Medical Specialty Hospital - Akron Comment on above:Performed By: #### BMPX, CDP #### [address] [place] [address] Take Down Inspector: MAYDA Tran Automated0.0 per 100 WBCNormal0.0[facility] Hospital - AkronComment on above:Performed By: #### BMPX, CDP #### [address] [place] [address] Take Down Inspector: Mady Tran mean volume (Bld) [Entitic vol]9.6 fL Normal8.1-13.5[facility] Hospital - AkronComment on above:Performed By: #### BMPX, CDP #### [address] [place] [address] Take Down Inspector: Daly Tran (Bld) [#/Vol]328 10*3/rIMbeicl611-332 [facility] Hospital - AkronComment on above:Performed By: #### BMPX, CDP #### [address] [place] [address] Take Down Inspector: MARY Tran (Bld) [#/Vol]3.51 10*6/uLLow3.95-5.11[facility] Hospital - AkronComment on above:Performed By: #### BMPX, CDP #### [address] [place] [address] Take Down Inspector: PING Tran (Bld) [#/Vol]6.8 10*3/uLNormal3.5-11.3MFort Hamilton HospitalComment on above:Performed By: #### BMPX, CDP #### [address] [place], [place] [address] Take Down Inspector: Iliana Tran [id number] [Catalytic activity/Vol]242 U/L High26 - 192 U/LBon SecCincinnati VA Medical CenterInterpretation and review of laboratory resultsAbBowdle HospitalCreatine Kinaseon 38-67-2028IG [Catalytic activity/Vol]242 U/PUrcs01-118LodrhSelect Medical Specialty Hospital - Akron Comment on above:Performed By: #### SAMIA, VLADIMIR NAVARRETE #### [facility] [address] [place] [address] Take Down Inspector: PATI Tran Rhythm Stripon [id number] CHILDREN'S HOSPITAL MEDICAL CENTER LABCarilion Clinic St. Albans HospitalGlucose, Whole Bloodon 49-21-2450Repggow [Mass/Vol]233 mg/mOQtqm76 - 100 mg/dLBon [facility] HospitalInterpretation and review of laboratory resultsAbBowdle HospitalGlucose [Mass/Vol]233 mg/qPQbis86-407ZdbzxSelect Medical Specialty Hospital - AkronGlucose [Mass/Vol]124 mg/iYQubu08 - 100 mg/dLBDickenson Community HospitalInterpretation and review of laboratory resultsAbBowdle HospitalGlucose [Mass/Vol]124 mg/mVVsha70-898OnuzfSelect Medical Specialty Hospital - AkronUS Kidneyon 61-50-7027Rcdipqdls renal parenchyma echogenicity bilaterally suggestive of chronic medical renal disease. [facility] CONSOLIDATEDEXAMINATION: RETROPERITONEAL ULTRASOUND OF THE KIDNEYS AND URINARY BLADDER 05/31/2025 COMPARISON: None HISTORY: ORDERING SYSTEM PROVIDED HISTORY: BAILEE TECHNOLOGIST PROVIDED HISTORY: BAILEE FINDINGS: Kidneys: The right kidney measures 13 x 4.5 x 4.9 cm in length and the left kidney measures 12.8 x 5.4 x 6.1 cm in length. The right renal cortex measures 1.8 cm and the left renal cortex measures 1.7 cm. Kidneys demonstrate increased cortical echogenicity. No evidence of hydronephrosis or intrarenal stones. Bladder: Unremarkable appearance of the bladder. Prevoid volume 325 cc, postvoid volume 5 cc [facility] RIS Brock Michael DO - 05/31/2025 EXAMINATION: RETROPERITONEAL ULTRASOUND OF THE KIDNEYS AND URINARY BLADDER 05/31/2025 COMPARISON: None HISTORY: ORDERING SYSTEM PROVIDED HISTORY: BAILEE TECHNOLOGIST PROVIDED HISTORY: BAILEE FINDINGS: Kidneys: The right kidney measures 13 x 4.5 x 4.9 cm in length and the left kidney measures 12.8 x 5.4 x 6.1 cm in length. The right renal cortex measures 1.8 cm and the left renal cortex measures 1.7 cm. Kidneys demonstrate increased cortical echogenicity. No evidence of hydronephrosis or intrarenal stones. Bladder: Unremarkable appearance of the bladder. Prevoid volume 325 cc, postvoid volume 5 cc IMPRESSION: Increased renal parenchyma echogenicity bilaterally suggestive of chronic medical renal disease. [facility] WannadoRadiology Study observation (narrative)[facility] [employer] KidneyOrdered By: Brock Narvaez on 48-08-9710Byx [facility] Regional Medical CenterPrestoSports Work Phone: us RENAL COMPLETEon [id number] RENAL COMPLETE EXAMINATION: RETROPERITONEAL ULTRASOUND OF THE KIDNEYS AND URINARY BLADDER 05/31/2025 COMPARISON: None HISTORY: ORDERING SYSTEM PROVIDED HISTORY: BAILEE TECHNOLOGIST PROVIDED HISTORY: BAILEE FINDINGS: Kidneys: The right kidney measures 13 x 4.5 x 4.9 cm in length and the left kidney measures 12.8 x 5.4 x 6.1 cm in length. The right renal cortex measures 1.8 cm and the left renal cortex measures 1.7 cm. Kidneys demonstrate increased cortical echogenicity. No evidence of hydronephrosis or intrarenal stones. Bladder: Unremarkable appearance of the bladder. Prevoid volume 325 cc, postvoid volume 5 cc IMPRESSION: Increased renal parenchyma echogenicity bilaterally suggestive of chronic medical renal disease. Interpreted by: Brock Narvaez DO Signed by: Brock Narvaez DO 05/31/25 Final resultNormalSelect Medical Specialty Hospital - AkronBasic Metab w/rfx MGon [id number] gap [Moles/Vol]14 mmol/LNormal9-16[facility] Hospital - AkronComment on above: Performed By: #### JANE NEFF #### [facility] [address] [place] [address] Take Down Inspector: Melvin Santoyo MDBUN/CRE Xkhha28Qwllgk4-73Sltwx [facility] Comment on above:Performed By: #### LDLDIR, LIPR #### [facility] [address] [place] [address] Take Down Inspector: DAVID Schultzalcium [Mass/Vol]8.5 mg/dLLow8.6-10.4MerMercy Health Willard Hospital HospitalComment on above:Performed By: #### LDLDIR, LIPR #### [facility] [address] [place] [address] Take Down Inspector: Melvin Santoyo MDChloride [Moles/Vol]104 mmol/ZGdodhk24-472Naevv [facility] HospitalComment on above:Performed By: #### LDLDIR, LIPR #### [facility] [address] [place] [address] Take Down Inspector: Melvin Santoyo MDCO2 [Moles/Vol]23 mmol/KJlksse91-64Vddkk [facility] HospitalComment on above:Performed By: #### LDLDIR, LIPR #### [facility] [address] [place] [address] Take Down Inspector: DAVID Schultzreatinine [Mass/Vol]2.4 mg/dLHigh0.50-0.90[facility] HospitalComment on above:Performed By: #### LDLDIR, LIPR #### [facility] [employer] [address] [place] [address] Take Down Inspector: Melvin Santoyo MDGFR/1.73 sq M.predicted among non-blacks MDRD (S/P/Bld) [Vol rate/Area]24 mL/min/{1.73_m2}Low>60[facility] HospitalComment on above:Result Comment: These results are not intended for [...] or following therapy that affects renal tubular secretion.Performed By: #### LDLDIR, LIPR #### [facility] HospitalNumber 1 [employer] [facility] [place] [address] Take Down Inspector: Melvin Santoyo MDGlucose [Mass/Vol]247 mg/lPFjgp34-56Occvo [facility] HospitalComment on above:Performed By: #### LDLDIR, LIPR #### [address] [address] Take Down Inspector: BENY Schultzotassium [Moles/Vol]4.7 mmol/LNormal3.7-5.3 [facility] HospitalComment on above:Performed By: #### LDLDIR, LIPR #### [facility] [employer] [address] [place] [address] Take Down Inspector: LAY Schultzodium [Moles/Vol]141 mmol/JOlkmur772-755FeqhpSelect Medical Specialty Hospital - AkronComment on above:Performed By: #### LDLDIR, LIPR #### [facility] [employer] [address] [place] [address] Take Down Inspector: Melvin Santoyo MDUrea nitrogen [Mass/Vol]48 mg/dLHigh6-20[facility] - AkronComment on above:Performed By: #### LDLDIR, LIPR #### [address] [address] Take Down Inspector: Melvin Santoyo MDBasaint joseph [place] Metabolic Panel w/ Reflex to MGon 46-21-1558Angyp gap [Moles/Vol]14 mmol/L9 - 16 mmol/LBon SecCincinnati VA Medical Center Calcium [Mass/Vol]8.5 mg/dLLow8.6 - 10.4 mg/dLBon [facility]ours [facility] HealthChloride [Moles/Vol]104 mmol/L98 - 107 mmol/LBon [facility] Medical CenterCO2 [Moles/Vol]23 mmol/L20 - 31 mmol/LBon [facility] Medical CenterCreatinine [Mass/Vol]2.4 mg/dLHigh 0.50 - 0.90 mg/dLBon Secours [facility] Medical CenterEst, Glom Filt Ivuy61Aou- PINFBon [facility] HospitalComment on above: These results are not intended [...] therapy that affects renal tubular secretion. Glucose [Mass/Vol]247 mg/wJZtiq02 - 99 mg/dLBon [facility] Interpretation and review of laboratory resultsAbnormTwin County Regional Healthcare Potassium [Moles/Vol]4.7 mmol/L3.7 - 5.3 mmol/LBon [facility] HospitalSodium [Moles/Vol]141 mmol/L136 - 145 mmol/LBon [facility] HospitalUrea nitrogen [Mass/Vol]48 mg/dLHigh6 - 20 mg/dLBon [facility] HospitalUrea nitrogen/Creatinine [Mass ratio]20 mg/mg9 - 20Bon [facility] HospitalCBC auto differentialon [id number] (Bld) [#/Vol] 0.09 10*3/uLBon [facility] HospitalBasophils/100 WBC (Bld)1 %0 - 2 %[facility] HospitalEosinophils (Bld) [#/Vol]0.32 10*3/uLBon [facility] Eosinophils/100 WBC (Bld)5 %High1 - 4 %[facility] HospitalErythrocyte distribution width (RBC) [Ratio]14.0 %11.8 - 14.4 %[facility] Hematocrit (Bld) [Volume fraction]34.3 %Low36.3 - 47.1 %[facility] Hemoglobin (Bld) [Mass/Vol]10.7 g/dLLow11.9 - 15.1 g/dLBon [facility] Immature granulocytes (Bld) [#/Vol]0.08 10*3/uLBon [facility] HospitalImmature granulocytes/100 WBC (Bld)1 %Uyfi4Dyc [facility] HospitalInterpretation and review of laboratory resultsAbnormTwin County Regional HealthcareLymphocytes/100 WBC (Bld)46 %High24 - 43 %Bon SecCincinnati VA Medical CenterLymphocytes/100 WBC (Bld)3.14 %[facility] Medical CenterH (RBC) [Entitic mass]30.7 pg25.2 - 33.5 pgBon [facility] HospitalHC (RBC) [Mass/Vol]31.2 g/dL28.4 - 34.8 g/dLBon SecKettering Health Washington TownshipV (RBC) [Entitic vol]98.6 fL82.6 - 102.[address] [facility] Monocytes/100 WBC (Bld)9 %3 - 12 %[facility] HospitalMonocytes/100 WBC (Bld)0.57 %[facility] HospitalNeutrophils/100 WBC (Bld)38 %36 - 65 %Bon [facility] HospitalNucleated RBC/100 WBC (Bld) [Ratio]0.0 %0.0 per [address] [facility] HospitalPlatelet mean volume (Bld) [Entitic vol]10.0 fL8.1 - 13.5 fL [facility] HealthPlatelets (Bld) [#/Vol]339 10*3/uLBon [facility] HospitalRBC (Bld) [#/Vol]3.48 10*6/uLLow3.95 - 5.11 m/uLCarilion Clinic St. [facility]ans Hospital Segmented neutrophils/100 WBC (Bld)2.52 %[facility] Alb[facility] HospitalWBC other (Bld) [#/Vol]6.7Bon SecChildren's Hospital of Wisconsin– MilwaukeeCBC with Diffon [id number]. Basophil0.09 k/uLNormal0.00-0.20[facility] HospitalComment on above:Performed By: #### LDLDIR, LIPR #### [facility] [address] [place] [id number] Take Down Inspector: Thao Schultz.Imm.Granulocyte0.08 k/uLNormal0.00-0.30[facility] HospitalComment on above:Performed By: #### LDLDIR, LIPR #### [facility] [address] [place] [address] Take Down Inspector: Thao Schultz.Neutrophil (Seg)2.52 k/uLNormal1.50-8.10 [facility] HospitalComment on above:Performed By: #### LDLDIR, LIPR #### [address] [address] Take Down Inspector: Melvin Santoyo MDBasophils/100 WBC (Bld)1 %Normal0-2[facility] HospitalComment on above:Performed By: #### LDLDIVeda, LIPR #### [place] [address] Take Down Inspector: Melvin Santoyo MDEosinophils (Bld) [#/Vol]0.32 10*3/uLNormal 0.00-0.44[facility] HospitalComment on above:Performed By: #### LAKESHIADIVeda, LIPR #### [address] [address] Take Down Inspector: MOLLY Schultzosinophils/100 WBC (Bld)5 %High1-4MerMercy Health Willard Hospital HospitalComment on above:Performed By: #### LDLDIVeda, LIPR #### [place] [address] Take Down Inspector: Melvin Santoyo MDErythrocyte distribution width (RBC) [Ratio]14.0 %Iadabl79.8-14.4[facility] Springfieldcy [facility] HospitalComment on above:Performed By: #### LDLDIVeda, LIPR #### [place] [address] Take Down Inspector: Melvin Santoyo MDHematocrit (Bld) [Volume fraction]34.3 %Low 36.3-47.1[facility] HospitalComment on above:Performed By: #### LDLDIVeda, LIPR #### [facility] [facility] [address] [place] [address] Take Down Inspector: Melvin Santoyo MDHemoglobin (Bld) [Mass/Vol]10.7 g/dLLow11.9-15.1 [facility] HospitalComment on above:Performed By: #### LDLDIR, LIPR #### [address] [address] Take Down Inspector: Cornelio Schultzmature granulocytes/100 WBC (Bld)1 %Xqpt8TfikdMemorial Hospital HospitalComment on above:Performed By: #### LDLDIR, LIPR #### [address] [address] Take Down Inspector: Melvin Santoyo MDLymphocytes (Bld) [#/Vol]3.14 10*3/uLNormal 1.10-3.70[facility] HospitalComment on above:Performed By: #### LDLDIR, LIPR #### [address] [address] Take Down Inspector: Diego Schultzmphocytes/100 WBC (Bld)46 %Mjvj31-15Xtots [facility] HospitalComment on above:Performed By: #### LDLDIR, LIPR #### [facility] [employer] [address] [place] [address] Take Down Inspector: KATHIE SchultzCH (RBC) [Entitic mass]30.7 xfIaljvm31.2-33.5 [facility] HospitalComment on above:Performed By: #### LDLDIR, LIPR #### [facility] [employer] [address] [place] [address] Take Down Inspector: KATHIE SchultzCHC (RBC) [Mass/Vol]31.2 g/cLKynmoz21.4-34.8 [facility] HospitalComment on above:Performed By: #### LDLDIR, LIPR #### [facility] [employer] [address] [place] [address] Take Down Inspector: KATHIE SchultzCV (RBC) [Entitic vol]98.6 bCBoukum76.6-102.9 [facility] HospitalComment on above:Performed By: #### LDLDIVeda, LIPR #### [address] [address] Take Down Inspector: KATHIE Schultzonocytes (Bld) [#/Vol]0.57 10*3/uLNormal 0.10-1.20[facility] HospitalComment on above:Performed By: #### LDLDIVeda, LIPR #### [address] [address] Take Down Inspector: KATHIE Schultzonocytes/100 WBC (Bld)9 %Normal3-12[facility] HospitalComment on above:Performed By: #### LDLDIVeda, LIPR #### [address] [address] Take Down Inspector: Melvin Santoyo MDNeutrophil (Seg)38 %Rcqzwt49-14Pzucu [facility] HospitalComment on above:Performed By: #### LDLDIVeda, LIPR #### [address] [address] Take Down Inspector: Melvin Santoyo MDNRBC Automated0.0 per 100 WBCNormal0.0[facility] HospitalComment on above:Performed By: #### LDLDIR, LIPR #### [address] [address] Take Down Inspector: BENY Schultzlatelet mean volume (Bld) [Entitic vol]10.0 fL Normal8.1-13.5[facility] HospitalComment on above:Performed By: #### LDLDIR, LIPR #### [address] [address] Take Down Inspector: BENY Schultzlatelets (Bld) [#/Vol]339 10*3/cOTznnmy346-138 [facility] HospitalComment on above:Performed By: #### LDLDIR, LIPR #### [employer] [facility] [address] [place] [address] Take Down Inspector: Melvin Santoyo [facility] ([facility]) [#/Vol]3.48 10*6/uLLow3.95-5.11[facility] HospitalComment on above:Performed By: #### LDLDIR, LIPR #### [facility] [address] [place] [address] Take Down Inspector: Melvin Santoyo [facility] ([facility]) [#/Vol]6.7 10*3/uLNormal3.5-11.3MSt. Rita's Hospital HospitalComment on above:Performed By: #### LDLDIR, LIPR #### [facility] [address] [place] [address] Take Down Inspector: Melvin Santoyo [facility]AHardiac echo study Procedureon [id number] Sinus Valsalva2.6 cmBon Secours Mercy HealthAortic Sinus Valsalva Index1.21 cm/m2Bon [facility] HealthAV Cusp Mmode1.5 cmBon Secours Mercy HealthAV Mean Uzoueadg0yeNeJtz [facility]cy HealthAV Mean Velocity1.2 m/sBon Secours Mercy HealthAV Peak Nvguyzmd92cgWoCis [facility]ours [facility] HealthAV Peak Velocity1.8 m/sBon Secours Mercy HealthAV Velocity Ratio0.78Bon [facility] Mercy HealthAV VTI31.9 cm [facility] HealthBody surface area Derived from formula2.22 m2Bon [facility] Mercy HealthE/E' Lzyvqna38.92Bon [facility] HealthEF BP68 %55 - 100 %[facility] HealthEF Szsudjenr48 %[facility] HealthEst. RA Pressure3 mmHgBon Secours Mercy HealthFractional Shortening 2D38 %28 - 44 %[facility] HealthInterpretation and review of laboratory resultsAbnormalBon Secours Mercy HealthIVSd0.9 cm0.6 - 0.9 cmBon Secours Mercy HealthLA Area 2C18.7 cm2[facility] HealthLA Area 4C18.1 cm2[facility] Mercy HealthLA Major Axis6.1 cmBon Secours Mercy HealthLA Minor Axis5.8 cmBon Secours Mercy HealthLA Volume BP47 mL22 - 52 mLBon Secours Mercy HealthLA Volume Index BP22 ml/m216 - 34 ml/m2 [facility] Mercy HealthLA Volume Index MOD A2C23 ml/m216 - 34 ml/m2Bon [facility] Mercy HealthLA Volume Index MOD A4C20 ml/m216 - 34 ml/m2[facility] LA Volume MOD A2C49 mL22 - 52 mLBon Secours Mercy HealthLA Volume MOD A4C43 mL22 - 52 mLBon Secours Mercy HealthLV E' Lateral Utskdaqt23.40 cm/sBon Secours Mercy HealthLV EDV A2C72 mLBon Secours Mercy HealthLV EDV A4C81 mLBon Secours Mercy HealthLV EDV Index A2C34 mL/m2Bon [facility] Mercy HealthLV EDV Index A4C38 mL/m2Bon [facility] Mercy HealthLV Ejection Fraction A2C66 %[facility] Mer[facility] HealthLV Ejection Fraction A4C67 %[facility] HealthLV ESV A2C24 mLBon Secours Mercy HealthLV ESV A4C27 mLBon Secours Mercy HealthLV ESV Index A2C11 mL/m2Bon [facility] Mercy HealthLV ESV Index A4C13 mL/m2[facility]ours Mercy HealthLV Mass 2D205.5 bTltprdzq98 - 162 gBon Secours Mercy HealthLV Mass 2D Index96.0 g/q2Ptnfcnmr31 - 95 g/m2[facility] Mercy HealthLV RWT Ratio0.36[facility] Mer[facility] HealthLVIDd5.6 cmAbnormal3.9 - 5.3 cmBon Secours Mercy HealthLVIDd Index 2.62 cm/m2[facility] HealthLVIDs3.5 cmBon Secours Mercy HealthLVIDs Index 1.64 cm/m2[facility] HealthLVOT Mean Yjvckbgw0rwIbVaj Secours Mercy HealthLVOT Peak Piheluno5mjBlWgq Secours Mercy HealthLVOT Peak Velocity1.4 m/s [facility] Mercy HealthLVOT VTI26.5 cmBon Secnkf-pharma [facility] East HospitalRosetta GenomicsLVOT:AV VTI Index 0.83[facility] Secnkf-pharma [facility] HospitalRosetta GenomicsLVPWd1.0 cmAbnormal0.6 - 0.9 cmFort Belvoir Community Hospitalnkf-pharma [facility] HospitalRosetta GenomicsMV A Velocity1.04 m/sBon [facility]ours [facility] HospitalRosetta GenomicsMV E Velocity1.24 m/sBon Secours [facility] HospitalRosetta GenomicsMV E Wave Deceleration Vism569.0 msFort Belvoir Community Hospitalnkf-pharma [facility] HospitalRosetta Genomics MV E/A1.19[facility] HospitalRosetta GenomicsPV Max Velocity1.1 m/sBon Secours [facility] HospitalRosetta Genomics PV Peak Woawjhsv9ljIcXfd Secours [facility] HospitalRosetta GenomicsKimndeTMWJ85rbLxLpv [facility] Sinotubular Junction2.3 cmBon Secours [facility] East HospitalAsia Bioenergy Technologies Berhad HealthTAPSE2.2 cm1.7 cmAbrazo [facility] Campus Secnkf-pharma [facility] HospitalRosetta GenomicsTR Max Velocity2.51 m/sBon Secours [facility] HospitalRosetta GenomicsTR Peak Ujiyoctp78 mmHgFort Belvoir Community Hospitalnkf-pharma [facility] HospitalRosetta GenomicsLeft Ventricle: Normal left ventricular systolic function with a visually estimated EF of 60 - 65%. Left ventricle size is normal. Mildly increased wall thickness. Normal wall motion. Grade I diastolic dysfunction with normal LAP. Right Ventricle: Right ventricle size is normal. Normal systolic function. Mitral Valve: Trace regurgitation. Aorta: Normal sized aortic root and ascending aorta. Pericardium: There is evidence of epicardial fat. No pericardial effusion. Left Ventricle Normal left ventricular systolic function with a visually estimated EF of 60 - 65%. Left ventricle size is normal. Mildly increased wall thickness. Normal wall motion. Grade I diastolic dysfunction with normal LAP. Right Ventricle Right ventricle size is normal. Normal systolic function. Left Atrium Left atrium size is normal. Right Atrium Right atrium size is normal. IVC/SVC IVC diameter is normal or and decreases greater than 50% during inspiration; therefore the estimated right atrial pressure is normal (~3 mmHg). IVC size is normal. Mitral Valve Valve structure is normal. Trace regurgitation. No stenosis noted. Tricuspid Valve Valve structure is normal. Mild regurgitation. No stenosis noted. Aortic Valve Valve structure is normal. No regurgitation. No stenosis. Pulmonic Valve The pulmonic valve visualization is suboptimal but appears to be functioning normally. Physiologically normal regurgitation. No stenosis noted. Ascending Aorta Normal sized aortic root and ascending aorta. Pericardium There is evidence of epicardial fat. No pericardial effusion. Study Details Image quality: adequate. No contrast was given.BSMH CV CPACSCarilion Roanoke Community HospitalAsia Bio[employer] Berhad HealthRadiology Study observation (narrative)Bon [facility] Metabolic Profon [id number] [Mass/Vol]4.0 g/dLNormal3.5-5.2[facility] HospitalComment on above:Performed By: #### CP, MG, TROPI #### [address] [place], [place] [address] Take Down Inspector: Phillip Camarena MDAlbumin/Glob Ratio1.6Fedfqp2.0-2.5[facility] River HospitalComment on above:Performed By: #### CP, MG, TROPI #### [address] [place] [address] Take Down Inspector: Rylie Trankaline Phos80 U/ZDnwuhc85-277Sisja [facility] HospitalComment on above:Performed By: #### CP, MG, TROPI #### [address] [place] [address] Take Down Inspector: Phillip Camarena MDALT [Catalytic activity/Vol]24 U/WHrgrbm46-01Onxeq [facility] HospitalComment on above:Performed By: #### CP, MG, TROPI #### [address] [place] [address] Take Down Inspector: Les Tran gap [Moles/Vol]13 mmol/LNormal9-16[facility] HospitalComment on above:Performed By: #### CP, MG, TROPI #### [address] [place] [address] Take Down Inspector: Phillip Camarena MDAST [Catalytic activity/Vol]25 U/KLykrya88-92Cdtyp [facility] HospitalComment on above:Performed By: #### CP, MG, TROPI #### [address] [place], [place] [address] Take Down Inspector: Phillip Sturtz, MDBilirubin [Mass/Vol]mg/dLNormal0.00-1.20[facility] Hospital - AkronComment on above:Performed By: #### CP, MG, TROPI #### [address] [place] [address] Take Down Inspector: Phillip Camarena MDBUN/CRE Xxlqb48Uvrqpb7-32Xgupp [facility] Comment on above:Performed By: #### CP, MG, TROPI #### [address] [place] [address] Take Down Inspector: DAVID Tranalcium [Mass/Vol]8.9 mg/dLNormal8.6-10.4[facility] Hospital - AkronComment on above:Performed By: #### CP, MG, TROPI #### [address] [place], [facility]83 Take Down Inspector: DAVID Tranhloride [Moles/Vol]103 mmol/ZKkjfnq93-872Fianf [facility] HospitalComment on above:Performed By: #### CP, MG, TROPI #### [address] [place] [address] Take Down Inspector: Phillip Camarena MDCO2 [Moles/Vol]22 mmol/PRtxhqb38-96ZjppkSelect Medical Specialty Hospital - AkronComment on above:Performed By: #### CP, MG, TROPI #### [address] [place] [address] Take Down Inspector: DAVID Tranreatinine [Mass/Vol]2.9 mg/dLHigh0.50-0.90[facility] Hospital - AkronComment on above:Performed By: #### CP, MG, TROPI #### [address] [place] [address] Take Down Inspector: Phillip Camarena MDGFR/1.73 sq M.predicted among non-blacks MDRD (S/P/Bld) [Vol rate/Area]19 mL/min/{1.73_m2}Low>60MerHartford HospitalComment on above:Result Comment: These results are not intended for [...] or following therapy that affects renal tubular secretion.Performed By: #### CP, MG, TROPI #### [address] [place] [address] Take Down Inspector: Phillip Camarena MDGlucose [Mass/Vol]233 mg/aAKhtt22-83DajtqFort Hamilton HospitalComment on above:Performed By: #### CP, MG, TROPI #### [address] [place] [address] Take Down Inspector: BENY Tranotassium [Moles/Vol]5.3 mmol/LNormal3.7-5.3Mkettering health hamiltony Little River HospitalComment on above:Performed By: #### CP, MG, TROPI #### [address] [place] [address] Take Down Inspector: Phillip Camarena MDProtein [Mass/Vol]6.9 g/dLNormal6.6-8.7[facility] Hospital - AkronComment on above:Performed By: #### CP, MG, TROPI #### [address] [place] [address] Take Down Inspector: Phillip Camarena MDSodium [Moles/Vol]138 mmol/IOyjjfc936-447Blidr [facility] HospitalComment on above:Performed By: #### CP, MG, TROPI #### [address] [place] [address] Take Down Inspector: Phillip Camarena MDUrea nitrogen [Mass/Vol]49 mg/dLHigh6-20MerHartford HospitalComment on above:Performed By: #### MG GRACIA TROPI #### [facility] [address] [place] [address] Take Down Inspector: Phillip Camarena [facility] SEQUOYAHomprehensive Metabolic Panelon [id number] [Mass/Vol]4.0 g/dL3.5 - 5.2 g/dLBon [facility]man HospitalAlbumin/Globulin [Mass ratio]1.4 {ratio}1.0 - 2.5Bon SecOchsner Medical Center HealthALP [Catalytic activity/Vol]80 U/L35 - 104 U/LBon SecOchsner Medical Center HealthALT [Catalytic activity/Vol]24 U/L10 - 35 U/LBon SecCincinnati VA Medical CenterAnion gap [Moles/Vol]13 mmol/L9 - 16 mmol/LBon [facility] HealthAST [Catalytic activity/Vol]25 U/L10 - 35 U/LBon [facility] HospitalBilirubin [Mass/Vol]mg/dL0.00 - 1.20 mg/dLBon [facility] Calcium [Mass/Vol]8.9 mg/dL8.6 - 10.4 mg/dLBon [facility] HospitalChloride [Moles/Vol]103 mmol/L98 - 107 mmol/LBon [facility] HospitalCO2 [Moles/Vol]22 mmol/L20 - 31 mmol/LBon [facility] HospitalCreatinine [Mass/Vol]2.9 mg/dLHigh 0.50 - 0.90 mg/dLBon [facility] HospitalEst, Glom Filt Once31Esp- PINFBon [facility] Board[facility] HospitalComment on above: These results are not intended [...] therapy that affects renal tubular secretion. Glucose [Mass/Vol]233 mg/lXHvrb38 - 99 mg/dLBon [facility] HealthPotassium [Moles/Vol]5.3 mmol/L3.7 - 5.3 mmol/LBon [facility] HealthProtein [Mass/Vol] 6.9 g/dL6.6 - 8.7 g/dLBon [facility] HospitalSodium [Moles/Vol]138 mmol/L136 - 145 mmol/LBon [facility] HospitalUrea nitrogen [Mass/Vol]49 mg/dLHigh6 - 20 mg/dLBon [facility] HospitalUrea nitrogen/Creatinine [Mass ratio]17 mg/mg9 - 20 Bon [facility] HealthEKG 12 Leadon [id number] Ibzg15JNRPrv [facility] HealthP Leds76tzwkvnwKqbMountain States Health Alliance HealthP-R Uxsbvgep[address] Albans HospitalQ-T Jaonfqro611 Hospital Corporation of AmericaQRS Jjngfuaq[address] Albans HospitalQTc Calculation (Bazett)459 Hospital Corporation of AmericaR [place] 13degreesMountain States Health Alliance HealthT Jnwq56mjkcywcUpkBon [facility] Ventricular Btjs18UVHRfx [facility] HospitalNormal sinus rhythm Normal ECG ECG not diagnostic for Acute Coronary Syndrome; consider clinical findings When compared with ECG of 16-Jun-2023 17:48, No significant change was found Confirmed by Nathan Ardon ([id number]) on 05/30/2025 8:20:27 AMPhoebe Worth Medical CenterNathan salmeron MD - 05/30/2025 Normal sinus rhythm Normal ECG ECG not diagnostic for Acute Coronary Syndrome; consider clinical findings When compared with ECG of 16-Jun-2023 17:48, No significant change was found Confirmed by Nathan Ardon ([id number]) on 05/30/2025 8:20:27 AM Bon [facility] HospitalEKG Rhythm Stripon 05-30-2025 [facility] CenterGlucose, Whole Bloodon 04-37-8551Wyusihx [Mass/Vol]165 mg/bPLhaz60 - 100 mg/dLBon [facility] HospitalInterpretation and review of laboratory resultsAbnormalBon Community Memorial HospitalGlucose [Mass/Vol]165 mg/uUWpsl62-561Qxcfl [facility] HospitalGlucose [Mass/Vol]153 mg/lDJlmo48 - 100 mg/dLBon [facility] HospitalInterpretation and review of laboratory resultsAbnormalBallad HealthGlucose [Mass/Vol]153 mg/eUPcnu50-530Lcdjo [facility] HospitalGlucose [Mass/Vol]271 mg/bCSpcg64 - 100 mg/dLBon [facility] HospitalInterpretation and review of laboratory resultsAbnormVirginia Hospital CenterGlucose [Mass/Vol]271 mg/zZLwbn93-008Ifnto [facility] HospitalGlucose [Mass/Vol]259 mg/gGMjod82 - 100 mg/dLBon [facility] HospitalInterpretation and review of laboratory resultsAbnoBowdle HospitalGlucose [Mass/Vol]259 mg/dIPfvx89-721VurjcSelect Medical Specialty Hospital - AkronMagnesiumon 49-86-2005Qtnmeapiv [Mass/Vol]2.5 mg/dL1.6 - 2.6 mg/dLBon [facility] Magnesium [Mass/Vol]2.5 mg/dLNormal1.6-2.6MercDay Kimball HospitalComment on above: Performed By: #### CP, MG, TROPI #### [facility] [address] [place] [address] Take Down Inspector: Vikas Tran Panel Informationon 30-79-0589Ptouskotdthhac and review of laboratory resultsAbBowdle HospitalSpecimen Rejectionon [id number] for rejectionUnable to perform testing: Specimen hemolyzed.[facility]. Bing, MD, Cancer CenterComment on above: Performed By: #### LDLDIR, LIPR #### [facility] [address] [place] [address] Take Down Inspector: Kiya Schultz of sample.BLOODNoToledo HospitalComment on above:Performed By: #### LDLDIR, LIPR #### [facility] [employer] [facility] [place], [place] [id number] Take Down Inspector: Melita Schultz orderedCP MG TROPINormalSelect Medical Specialty Hospital - AkronComment on above:Performed By: #### JANE NEFF #### [address] [place] [place], [place] [id number] Take Down Inspector: Dian Schultz [id number] and review of laboratory resultsAbnormalWellmont Lonesome Pine Mt. View Hospitaloponin I.cardiac High sensitivity method [Mass/Vol]28 ng/LHigh0 - 14 ng/LBon [facility] Comment on above:High Sensitivity Troponin values cannot be compared with other Troponin methodologies.Bon [facility] Hospitaloponin, High Sens28 ng/LHigh 0-14[facility] Hospital - AkronComhenry ford hospital on above:Result Comment: High Sensitivity Troponin values cannot be compared with other Troponin methodologies.Performed By: #### JANE NEFF #### [address] [id number] Take Down Inspector: Steve Schultz I.cardiac High sensitivity method [Mass/Vol]31 ng/LHigh0 - 14 ng/LBon [facility] Board[facility] HospitalComment on above:High Sensitivity Troponin values cannot be compared with other Troponin methodologies.Troponin, High Sens31 ng/LHigh0-14[facility] - AkronComhenry ford hospital on above:Result Comment: High Sensitivity Troponin values cannot be compared with other Troponin methodologies.Performed By: #### CP, MG, TROPI #### [facility] [address] [place] [address] [place] [address] Take Down Inspector: BRII Tran CHEST (2 VW)on [id number] CHEST (2 VW) EXAMINATION: TWO XRAY VIEWS OF THE CHEST 05/29/2025 11:32 pm COMPARISON: 12/07/2023 HISTORY: ORDERING SYSTEM PROVIDED HISTORY: lightheaded TECHNOLOGIST PROVIDED HISTORY: lightheaded FINDINGS: There are dense breast shadows. The lungs are clear on the lateral image. No confluent airspace disease, pneumothorax or pleural fluid. Heart size and configuration are normal. No acute bone finding. IMPRESSION: No acute cardiopulmonary process. Interpreted by: Bartolome Stewart MD Signed by: Bartolome Stewart MD 05/30/25 Final resultNormUniversity Hospitals Portage Medical CenterXR Chest 2 Viewson 30-59-5830Ml acute cardiopulmonary process. [facility] CONSOLIDATEDEXAMINATION: TWO XRAY VIEWS OF THE CHEST 05/29/2025 11:32 pm COMPARISON: 12/07/2023 HISTORY: ORDERING SYSTEM PROVIDED HISTORY: lightheaded TECHNOLOGIST PROVIDED HISTORY: lightheaded FINDINGS: There are dense breast shadows. The lungs are clear on the lateral image. No confluent airspace disease, pneumothorax or pleural fluid. Heart size and configuration are normal. No acute bone finding. [facility] LAURAWeBartolome solitario MD - 05/30/2025 EXAMINATION: TWO XRAY VIEWS OF THE CHEST 05/29/2025 11:32 pm COMPARISON: 12/07/2023 HISTORY: ORDERING SYSTEM PROVIDED HISTORY: lightheaded TECHNOLOGIST PROVIDED HISTORY: lightheaded FINDINGS: There are dense breast shadows. The lungs are clear on the lateral image. No confluent airspace disease, pneumothorax or pleural fluid. Heart size and configuration are normal. No acute bone finding. IMPRESSION: No acute cardiopulmonary process. [facility] [employer] [facility] HospitalXR Chest 2 ViewsOrdered By: Bartolome Stewart on 20-82-3263Emf [facility] Medical Centernkf-pharma [facility] Work Phone: cbc with Auto Differentialon [id number] (Bld) [#/Vol]0.10 10*3/uLCarilion Clinic St. Albans HospitalBasophils/100 WBC (Bld)1 %0 - 2 %[facility] HospitalEosinophils (Bld) [#/Vol]0.40 10*3/uLBon [facility] Medical Centernkf-pharma [facility] Medical CenterEosinophils/100 WBC (Bld)5 %High1 - 4 %[facility] Community HospitalZefanclub BabelverseErythrocyte distribution width (RBC) [Ratio]13.9 %11.8 - 14.4 %[facility] Hospitalnkf-pharma [facility] Hematocrit (Bld) [Volume fraction]35.3 %Low36.3 - 47.1 %[facility] HospitalCincinnati [facility] Center Hemoglobin (Bld) [Mass/Vol]11.5 g/dLLow11.9 - 15.1 g/dLBon [facility] Immature granulocytes (Bld) [#/Vol]0.14 10*3/uLBon [facility] HospitalImmature granulocytes/100 WBC (Bld)2 %Lzys0Ssy [facility] HospitalInterpretation and review of laboratory resultsAbnormalBon [facility] HospitalLymphocytes/100 WBC (Bld)37 %24 - 43 %[facility] HospitalLymphocytes/100 WBC (Bld)2.89 %[facility] Medical CenterH (RBC) [Entitic mass]31.6 pg25.2 - 33.5 pgBon Secours Memorial Regional Medical CenterHC (RBC) [Mass/Vol]32.6 g/dL28.4 - 34.8 g/dLBon [facility] HospitalV (RBC) [Entitic vol]97.0 fL82.6 - 102.[address] [facility] Hospital Monocytes/100 WBC (Bld)10 %3 - 12 %[facility] HospitalMonocytes/100 WBC (Bld)0.79 %[facility] HospitalNeutrophils/100 WBC (Bld)45 %36 - 65 %[facility] HospitalNucleated RBC/100 WBC (Bld) [Ratio]0.0 %0.0 per [address] Albans HospitalPlatelet mean volume (Bld) [Entitic vol]9.9 fL8.1 - 13.[address] Albans HospitalPlatelets (Bld) [#/Vol]379 10*3/uLBon [facility] HospitalRBC (Bld) [#/Vol]3.64 10*6/uLLow3.95 - 5.11 m/uLCarilion Clinic St. [facility] Hospital Segmented neutrophils/100 WBC (Bld)3.50 %[facility] Alb[facility] HospitalWBC other (Bld) [#/Vol]7.8Bon [facility] HospitalCBC with Diffon [id number]. Basophil0.10 k/uLNormal0.00-0.20MerHartford HospitalComment on above:Performed By: #### LDLDIVeda, LIPR #### [address] [address] Take Down Inspector: MDAbs. MarionImm.Granulocyte0.14 k/uLNormal0.00-0.30[facility] HospitalComment on above:Performed By: #### AISHWARYA, LIPR #### [place] [address] Take Down Inspector: Thao Schultz.Neutrophil (Seg)3.50 k/uLNormal1.50-8.10 [facility] HospitalComment on above:Performed By: #### AISHWARYA, LIPR #### [place] [address] Take Down Inspector: Melvin Santoyo MDBasophils/100 WBC (Bld)1 %Normal0-2[facility] HospitalComment on above:Performed By: #### LAKESHIADIVeda, LIPR #### [address] [address] Take Down Inspector: Melvin Santoyo MDEosinophils (Bld) [#/Vol]0.40 10*3/uLNormal 0.00-0.44MerMercy Health Willard Hospital HospitalComment on above:Performed By: #### LAKESHIADIVeda, LIPR #### [place] [address] Take Down Inspector: MOLLY Schultzosinophils/100 WBC (Bld)5 %High1-4MerMercy Health Willard Hospital HospitalComment on above:Performed By: #### LAKESHIADIVeda, LIPR #### [place] [address] Take Down Inspector: Melvin Santoyo MDErythrocyte distribution width (RBC) [Ratio]13.9 %Tkwyfs31.8-14.4MerMercy Health Willard Hospital HospitalComment on above:Performed By: #### LDLDIVeda, LIPR #### [address] [address] Take Down Inspector: Melvin Santoyo MDHematocrit (Bld) [Volume fraction]35.3 %Low 36.3-47.1MercAshtabula County Medical Center HospitalComment on above:Performed By: #### LDLDIR, LIPR #### [address] [address] Take Down Inspector: Melvin Santoyo MDHemoglobin (Bld) [Mass/Vol]11.5 g/dLLow11.9-15.1 [facility] HospitalComment on above:Performed By: #### LDLDIVeda, LIPR #### [address] [address] Take Down Inspector: Melvin Santoyo MDImmature granulocytes/100 WBC (Bld)2 %Xziy3XzgkiMemorial Hospital HospitalComment on above:Performed By: #### LDLDIVeda, LIPR #### [address] [address] Take Down Inspector: Melvin Santoyo MDLymphocytes (Bld) [#/Vol]2.89 10*3/uLNormal 1.10-3.70[facility] HospitalComment on above:Performed By: #### LDLDIR, LIPR #### [address] [address] Take Down Inspector: Diego Schultzmphocytes/100 WBC (Bld)37 %Ggzmne52-19Gnofb [facility] HospitalComment on above:Performed By: #### LDLDIR, LIPR #### [address] [address] Take Down Inspector: KATHIE SchultzCH (RBC) [Entitic mass]31.6 qzSacorj94.2-33.5 [facility] HospitalComment on above:Performed By: #### LDLDIR, LIPR #### [address] [address] Take Down Inspector: KATHIE SchultzCHC (RBC) [Mass/Vol]32.6 g/iTJoinqk72.4-34.8 [facility] HospitalComment on above:Performed By: #### LDLDIR, LIPR #### [address] [address] Take Down Inspector: KATHIE SchultzCV (RBC) [Entitic vol]97.0 dZMhnlia49.6-102.9 [facility] HospitalComment on above:Performed By: #### LDLDIR, LIPR #### [place] [address] Take Down Inspector: KATHIE Schultzonocytes (Bld) [#/Vol]0.79 10*3/uLNormal 0.10-1.20[facility] HospitalComment on above:Performed By: #### LDLDIR, LIPR #### [place] [id number] Take Down Inspector: KATHIE Schultzonocytes/100 WBC (Bld)10 %Normal3-12[facility] HospitalComment on above:Performed By: #### LDLDIR, LIPR #### [address] [address] Take Down Inspector: Melvin Santoyo MDNeutrophil (Seg)45 %Idtpib33-05Kchpb [facility] HospitalComment on above:Performed By: #### LDLDIR, LIPR #### [address] [address] Take Down Inspector: Melvin Santoyo MDNRBC Automated0.0 per 100 WBCNormal0.0[facility] HospitalComment on above:Performed By: #### LDLDIR, LIPR #### [address] [address] Take Down Inspector: BENY Schultzlatelet mean volume (Bld) [Entitic vol]9.9 fL Normal8.1-13.5[facility] - AkronComment on above:Performed By: #### AISHWARYA LIPR #### [address] [address] Take Down Inspector: BENY Schultzlatelets (Bld) [#/Vol]379 10*3/dYJwbqjt264-981 [facility] - AkronComment on above:Performed By: #### LDLDIR, LIPR #### [address] [address] Take Down Inspector: Melvin Santoyo [facility] CENTERBC (Bld) [#/Vol]3.64 10*6/uLLow3.95-5.11[facility] on above:Performed By: #### AISHWARYA, LIPR #### [address] [address] Take Down Inspector: Melvin Santoyo MDWBC (Bld) [#/Vol]7.8 10*3/uLNormal3.5-11.3MFort Hamilton HospitalComment on above:Performed By: #### AISHWARYA, LIPR #### [address] [address] Take Down Inspector: DEREJE Schultz-19, Rapidon [id number]-CoV-2 (COVID- 19) RdRp gene ASHLEY+probe Ql (Resp)Not detectedNot DetectedBon [facility] on above: Rapid NAAT: The specimen is [...] the sole basis for patient management decisions. Methodology: Isothermal Nucleic Acid Amplification Specimen Description.NASOPHARYNGEAL SWABBallad HealthFlu A/B Ag Detectionon [id number] A Ag DetectionNegativeNormalNEG [facility] on above:Result Comment: for Influenza A Antigen Performed By: #### LDLDIR, LIPR #### [facility] [address] [place] [address] Take Down Inspector: Melvin Santoyo MDFlu B Ag DetectionNegativeNormalNEGPeoples Hospital on above:Result Comment: for Influenza B Antigen.Performed By: #### LAKESHIADIR, LIPR #### [facility] [address] [place], [place] [id number] Take Down Inspector: Jenny Schultz influenza A/B antigenson [id number] Ag Ql (Unsp spec)NegativeNEGATIVESentara Princess Anne Hospital on above:for Influenza A AntigenFLUBV Ag Ql (Unsp spec)NegativeNEGATIVESentara Princess Anne Hospital on above:for Influenza B Antigen.[facility] IAWY-OpR-2ke 41-51-4054ZHDX-CoV-2 (COVID-19) RNA ASHLEY+probe Ql (Unsp spec)Not detectedNormalNOTDEMarietta Osteopathic Clinic on above:Result Comment: Rapid NAAT: The specimen is NEGATIVE [...] the sole basis for patient management decisions. Methodology: Isothermal Nucleic Acid AmplificationPerformed By: #### JANE NEFF #### [facility] [address] [place] [address] Take Down Inspector: Mick Schultz 01-07-2180DJU Qn0.84 m[IU]/LBon [facility] HospitalComment on above:Specimen hemolysis has exceeded the interference as defined by Amauri. Value may be falsely increased. Suggest recollection if clinically indicated. [facility] HospitalThyroid Stim. Horm.on 71-46-3673Dpmtaag Stim. Horm.0.84 uIU/mLNormal0.27-4.20[facility] - AkronComment on above:Result Comment: Specimen hemolysis has exceeded the interference as defined by Amauri. Value may be falsely increased. Suggest recollection if clinically indicated.Performed By: #### JANE NEFF #### [facility] [address] [place] [id number] Take Down Inspector: BRII Schultz Chest 2 Viewson [id number] Study observation (narrative)[facility] HospitalCBCon 85-06-9485Dndnayposca distribution width (RBC) [Ratio]14.1 %11.8 - 14.4 %[facility] Hematocrit (Bld) [Volume fraction]37.9 %36.3 - 47.1 %[facility] Hemoglobin (Bld) [Mass/Vol]11.4 g/dLLow11.9 - 15.1 g/dLBon [facility] Interpretation and review of laboratory resultsAbnormalCarilion Clinic St. [facility] Hospital MCH (RBC) [Entitic mass]30.3 pg25.2 - 33.[address] Alb[address] HospitalMCHC (RBC) [Mass/Vol]30.1 g/dL28.4 - 34.8 g/dLBDickenson Community HospitalMCV (RBC) [Entitic vol]100.8 fL82.6 - 102.[address] Alb[address] HospitalNucleated RBC/100 WBC (Bld) [Ratio]0.0 %0.0 per [address] [facility] HospitalPlatelet mean volume (Bld) [Entitic vol]10.2 fL8.1 - 13.5 fLBon [facility] HealthPlatelets (Bld) [#/Vol] 349 10*3/uLBon [facility] HospitalRBC (Bld) [#/Vol]3.76 10*6/uLLow3.95 - 5.11 m/uLBon [facility] HospitalWBC other (Bld) [#/Vol]7.8Bon [facility] Bon [facility] HospitalErythrocyte distribution width (RBC) [Ratio]14.1 %Normal 11.8-14.4[facility] Hospital - AkronComment on above:Performed By: #### CP, MG, TROPI #### [address] [place] [address] Take Down Inspector: Phillip Camarena MDHematocrit (Bld) [Volume fraction]37.9 %Normal 36.3-47.1MFort Hamilton HospitalComment on above:Performed By: #### CP, MG, TROPI #### [address] [place] [address] Take Down Inspector: Phillip Camarena MDHemoglobin (Bld) [Mass/Vol]11.4 g/dLLow11.9-15.1 [facility] - AkronComment on above:Performed By: #### CP, MG, TROPI #### [address] [place], [place] [id number] Take Down Inspector: KATHIE TranCH (RBC) [Entitic mass]30.3 wbUtwuhn59.2-33.5 [facility] - AkronComment on above:Performed By: #### CP, MG, TROPI #### [address] [place] [address] Take Down Inspector: KATHIE TranCHC (RBC) [Mass/Vol]30.1 g/qTHiiuel09.4-34.8[facility] HospitalComment on above:Performed By: #### CP, MG, TROPI #### [address] [place] [address] Take Down Inspector: KISHORE Tran (RBC) [Entitic vol]100.8 vANahzen94.6-102.9 [facility] HospitalComment on above:Performed By: #### CP, MG, TROPI #### [address] [place] [address] Take Down Inspector: MAYDA Tran Automated0.0 per 100 WBCNormal0.0[facility] HospitalComment on above:Performed By: #### CP, MG, TROPI #### [address] [place], [place] [id number] Take Down Inspector: Mady Tran mean volume (Bld) [Entitic vol]10.2 fL Normal8.1-13.5[facility] - AkronComment on above:Performed By: #### SAMIA, MG, TROPI #### [address] [place], [place] [address] Take Down Inspector: Daly Tran (Bld) [#/Vol]349 10*3/kUTdwjqb682-609 [facility] - AkronComment on above:Performed By: #### CP, MG, TROPI #### [address] [place], [facility] Take Down Inspector: MARY Tran (Bld) [#/Vol]3.76 10*6/uLLow3.95-5.11[facility] HospitalComment on above:Performed By: #### CP, MG, TROPI #### [address] [place], [place] [id number] Take Down Inspector: PING Tran (Bld) [#/Vol]7.8 10*3/uLNormal3.5-11.3[facility] HospitalComment on above:Performed By: #### CP, MG, TROPI #### [address] [place], [place] 1935[address] Take Down Inspector: Phillip Camarena MDComp Metabolic Profon [id number] [Mass/Vol] 4.3 g/dLNormal3.5-5.2[facility] HospitalComment on above:Performed By: #### CP, MG, TROPI #### [address] [place] [address] Take Down Inspector: Phillip Camarena MDAlbumin/Glob Ratio1.9Pjsadl9.0-2.5MerMercy Health Willard Hospital HospitalComment on above:Performed By: #### CP, MG, TROPI #### [address] [place], [place] [id number] Take Down Inspector: Yi Tranline Phos72 U/XLonvvl59-775Zbrug [facility] HospitalComment on above:Performed By: #### CP, MG, TROPI #### [address] [place], [place] 217[address] Take Down Inspector: Phillip Camarena MDALT [Catalytic activity/Vol]24 U/AMmlwtu43-15Cxtyf [facility] HospitalComment on above:Performed By: #### CP, MG, TROPI #### [address] [place] [address] Take Down Inspector: Phillip Camarena MDAnion gap [Moles/Vol]15 mmol/LNormal9-16[facility] HospitalComment on above:Performed By: #### CP, MG, TROPI #### [address] [place], [place] 7396183 Take Down Inspector: Phillip Camarena MDAST [Catalytic activity/Vol]22 U/OWwwqyj40-10Dgqbh [facility] HospitalComment on above:Performed By: #### CP, MG, TROPI #### [address] [place], [place] [address]83 Take Down Inspector: Phillip Camarena MDBilirubin [Mass/Vol]mg/dLNormal0.00-1.20[facility] - AkronComment on above:Performed By: #### CP, MG, TROPI #### [address] [place] [address] Take Down Inspector: Phillip Camarena MDBUN/CRE Vcmww25Qrij2-98ZuubdSelect Medical Specialty Hospital - Akron Comment on above:Performed By: #### CP, MG, TROPI #### [address] [place] [address] Take Down Inspector: DAVID Tranalcium [Mass/Vol]9.2 mg/dLNormal8.6-10.4MerMercy Health Willard Hospital HospitalComment on above:Performed By: #### CP, MG, TROPI #### [address] [place] [address] Take Down Inspector: DAVID Tranhloride [Moles/Vol]104 mmol/VNnitej19-166NrpkkSelect Medical Specialty Hospital - AkronComment on above:Performed By: #### CP, MG, TROPI #### [address] [place] [address] Take Down Inspector: Phillip Camarena MDCO2 [Moles/Vol]20 mmol/IGkuddx07-65Frjvs [facility] HospitalComment on above:Performed By: #### CP, MG, TROPI #### [address] [place], [place] [id number] Take Down Inspector: DAVID Tranreatinine [Mass/Vol]1.6 mg/dLHigh0.50-0.90[facility] HospitalComment on above:Performed By: #### CP, MG, TROPI #### [address] [place] [address] Take Down Inspector: Phillip Camarena MDGFR/1.73 sq M.predicted among non-blacks MDRD (S/P/Bld) [Vol rate/Area]40 mL/min/{1.73_m2}Low>60[facility] HospitalComment on above:Result Comment: These results are not intended for [...] or following therapy that affects renal tubular secretion.Performed By: #### CP, MG, TROPI #### [address] [place] [address] Take Down Inspector: Phillip Camarena MDGlucose [Mass/Vol]231 mg/rKLeeo99-73Lprgo [facility] HospitalComment on above:Performed By: #### CP, MG, TROPI #### [address] [place] [address] Take Down Inspector: Phillip Camarena MDPotassium [Moles/Vol]5.4 mmol/LHigh3.7-5.3[facility] HospitalComment on above:Performed By: #### CP, MG, TROPI #### [address] [place] [address] Take Down Inspector: Phillip Camarena MDProtein [Mass/Vol]7.3 g/dLNormal6.6-8.7[facility] HospitalComment on above:Performed By: #### CP, MG, TROPI #### [address] [place] [address] Take Down Inspector: Phillip Camarena MDSodium [Moles/Vol]139 mmol/IPdbjdd993-345Cqhth [facility] HospitalComment on above:Performed By: #### CP, MG, TROPI #### [facility] [address] [place] [address] Take Down Inspector: Phillip Camarena MDUrea nitrogen [Mass/Vol]50 mg/dLHigh6-20MerHartford HospitalComment on above:Performed By: #### CP, MG, TROPI #### [facility] [address] [place] [address] Take Down Inspector: Phillip Camarena [facility] SEQU[facility]AHomprehensive Metabolic Panelon [id number] [Mass/Vol]4.3 g/dL3.5 - 5.2 g/dLBon [facility] HospitalAlbumin/Globulin [Mass ratio]1.4 {ratio}1.0 - 2.5Bon [facility] HealthALP [Catalytic activity/Vol]72 U/L35 - 104 U/LBon [facility] HealthALT [Catalytic activity/Vol]24 U/L10 - 35 U/LBon [facility] HospitalAnion gap [Moles/Vol]15 mmol/L9 - 16 mmol/LBon [facility] HealthAST [Catalytic activity/Vol]22 U/L10 - 35 U/LBon [facility] HospitalBilirubin [Mass/Vol]mg/dL0.00 - 1.20 mg/dLBon [facility] Calcium [Mass/Vol]9.2 mg/dL8.6 - 10.4 mg/dLBon [facility] HospitalChloride [Moles/Vol]104 mmol/L98 - 107 mmol/LBon [facility] HospitalCO2 [Moles/Vol]20 mmol/L20 - 31 mmol/LBon [facility] HospitalCreatinine [Mass/Vol]1.6 mg/dLHigh 0.50 - 0.90 mg/dLBon [facility] HospitalEst, Glom Filt Ireg28Mfz- PINFBon [facility] HospitalComment on above: These results are not intended [...] therapy that affects renal tubular secretion. Glucose [Mass/Vol]231 mg/xTCwra03 - 99 mg/dLBon [facility] Interpretation and review of laboratory resultsAbnormalCarilion Clinic St. [facility] Potassium [Moles/Vol]5.4 mmol/LHigh3.7 - 5.3 mmol/LBon [facility] Protein [Mass/Vol]7.3 g/dL6.6 - 8.7 g/dLBon [facility] HospitalSodium [Moles/Vol]139 mmol/L136 - 145 mmol/LBon [facility] HospitalUrea nitrogen [Mass/Vol]50 mg/dLHigh6 - 20 mg/dLBDickenson Community HospitalUrea nitrogen/Creatinine [Mass ratio]31 mg/mgHigh9 - 20Bon [facility] HospitalLDL Chol, Directon [id number] Chol, Pjvaby17 mg/dLNormal <100[facility]S HospitalComment on above:Performed By: #### LDLDIR, LIPR #### [facility] [place] [address] Take Down Inspector: Melvin Santoyo MDLDL Cholesterol, Directon [id number] in LDL [Mass/Vol]97 mg/dLNINF - 100 mg/dLBon Community Memorial HospitalLipid Panelon [id number] [Mass/Vol]297 mg/dLHigh0 - 199 mg/dLBon [facility] HospitalComment on above: Cholesterol Guidelines: <200 Desirable 200-240 Borderline >240 Undesirable Cholesterol in HDL [Mass/Vol]26 mg/dLLow40 - PINF mg/dLBon [facility] Comment on above: HDL Guidelines: <40 Undesirable 40-59 Borderline >59 Desirable Cholesterol in LDL [Mass/Vol]Can not be calculated0 - 100 mg/dLBon [facility] HospitalComment on above: LDL Guidelines: <100 Desirable 100-129 Near to/above Desirable 130-159 Borderline >159 Undesirable Direct (measured) LDL and calculated LDL are not interchangeable tests. Cholesterol in VLDL [Mass/Vol]Can not be calculated1 - 30 mg/dLBon [facility] HospitalCholesterol.total/Cholesterol in HDL [Mass ratio]11.4 {ratio}HighNINF - 5.0[facility] HospitalInterpretation and review of laboratory results AbnormalCarilion Clinic St. Albans HospitalTriglyceride [Mass/Vol]1012 mg/dLHighNINF - 150 mg/dLBon [facility] HospitalComment on above: Triglyceride Guidelines: <150 Desirable 150-199 Borderline 200-499 High >499 Very high Based on AHA Guidelines for fasting triglyceride, June 2012. [facility] HospitalLipid Profileon [id number] [Mass/Vol]297 mg/dLHigh0-199[facility] on above:Result Comment: Cholesterol Guidelines: <200 Desirable 200-240 Borderline >240 UndesirablePerformed By: #### LDLDIR, LIPR #### [facility] [address] [place] [id number] Take Down Inspector: DAVID Schultzholesterol in HDL [Mass/Vol]26 mg/dLLow>40[facility] on above:Result Comment: HDL Guidelines: <40 Undesirable 40-59 Borderline >59 DesirablePerformed By: #### LDLDIR, LIPR #### [facility] [address] [place] [id number] Take Down Inspector: DAVID Schultzholesterol,LDLCan not be calculatedNormal0-100 [facility] on above:Result Comment: LDL Guidelines: <100 Desirable 100-129 Near to/above Desirable 130-159 Borderline >159 Undesirable Direct (measured) LDL and calculated LDL are not interchangeable tests.Performed By: #### LDLDIR, LIPR #### [facility] [address] [place] [id number] Take Down Inspector: DAVID Schultzholesterol,VLDLCan not be calculatedNormal1-30 [facility] on above:Performed By: #### LDLDIR, LIPR #### [facility] [address] [place] [address] Take Down Inspector: DAVID Schultzholesterol.total/Cholesterol in HDL [Mass ratio]11.4 {ratio}High<5.0[facility] - AkronComment on above:Performed By: #### LDLDIR LIPR #### [facility] [address] [place], [place] [id number] Take Down Inspector: Melvin Santoyo MDTriglyceride [Mass/Vol]1012 mg/dLHigh<150MerMercy Health [facility]ard Hospital HospitalComment on above:Result Comment: Triglyceride Guidelines: <150 Desirable 150-199 Borderline 200-499 High >499 Very high Based on AHA Guidelines for fasting triglyceride, June 2012.Performed By: #### LDLDIVeda LIPR #### [facility] [place], [place] [id number] Take Down Inspector: PASTOR SchultzEXA BONE DENSITY AXIAL SKELETONon 05-08-2025 DEXA BONE DENSITY AXIAL SKELETONEXAMINATION: BONE DENSITOMETRY 05/02/2025 3:49 pm TECHNIQUE: A bone density dual x-ray absorptiometry (DXA) scan was performed of the lumbar spine and left hip on a UXCam system. COMPARISON: None. HISTORY: ORDERING SYSTEM PROVIDED HISTORY: Closed dislocation of tarsal joint of left foot, initial encounter TECHNOLOGIST PROVIDED HISTORY: Is the patient ?->No Gender: F Age: 50 y/o FINDINGS: LUMBAR SPINE: L1-L4 BMD: 0.901 g/cm2 T-score: -2.3 Z-score: -2.9 LEFT TOTAL HIP: BMD: 0.812 g/cm2 T-score: -1.6 Z-score: -1.8 LEFT FEMORAL NECK: BMD: 0.688 g/cm2 T-score: -2.5 Z-score: -2.4 FRAX 10-YEAR PROBABILITY OF FRACTURE: FRAX not reported as the lowest BMD is not in the osteopenia range. IMPRESSION: Osteoporosis by WHO criteria. RECOMMENDATIONS: 1. All patients should optimize their calcium and vitamin D intake. 2. Consider FDA-approved medical therapies in postmenopausal women and men aged 50 years and older, based on the following: - A hip or vertebral (clinical or morphometric) fracture - T-score less than or equal to -2.5 at the femoral neck or spine after appropriate evaluation to exclude secondary causes - Low bone density (T-score between -1.0 and -2.5 at the femoral neck or spine) and a 10-year probability of a hip fracture greater than or equal to 3% or a 10-year probability of a major osteoporosis-related fracture greater than or equal to 20% based on FRAX calculation. - Clinician judgment and/or patient preferences may indicate treatment for people with 10-year fracture probabilities above or below these levels - Further guidance on treatment can be found at the National Osteoporosis Foundation's website bonesource.org. 3. Patients with diagnosis of osteoporosis or at high risk for fracture should have regular bone mineral density tests. For patients eligible for Medicare, routine testing is allowed once every 2 years. The testing frequency can be increased to one year for patients who have rapidly progressing disease, those who are receiving or discontinuing medical therapy to restore bone mass or have additional risk factors. Template code: [id number] Interpreted by: Ameena Oliveira MD Signed by: Ameena Oliveira MD 05/08/25 Final resultNoToledo HospitalHemoglobin A1Con [id number] glucose Estimated from glycated hemoglobin (Bld) [Mass/Vol]206 mg/dLBon [facility] HospitalComment on above:The ADA and AACC recommend providing the estimated average glucose result to permit better patient understanding of their HBA1c result. HbA1c (Bld) [Mass fraction]8.8 %High4.0 - 6.0 %[facility] Interpretation and review of laboratory resultsAbnormalBon [facility] HospitalGlucose [Mass/Vol]206 mg/dLNoToledo Hospital Comment on above:Result Comment: The ADA and AACC recommend providing the estimated average glucose result to permit better patient understanding of their HBA1c result.Performed By: #### SAMIA MG, TROPI #### [facility] [address] [place] [address] Take Down Inspector: Phillip Camarena MDHbA1c (Bld) [Mass fraction]8.8 %High4.0-6.0[facility] - AkronComment on above:Performed By: #### SAMIA MG, TROPI #### [facility] [address] [place] [address] Take Down Inspector: SEVERINO Tran LUMBAR SPINE WO CONTRASTon [id number] LUMBAR SPINE WO CONTRASTEXAM: MRI LUMBAR SPINE 04/12/2025 03:01:48 PM TECHNIQUE: Multiplanar multisequence MRI of the lumbar spine was performed without the administration of intravenous contrast. COMPARISON: 01/25/2019 CLINICAL HISTORY: Spinal stenosis, lumbar region with neurogenic claudication. FINDINGS: BONES AND ALIGNMENT: Degenerative disc disease and facet arthropathy. Slight retrolisthesis of T12 on L1, of L1 on L2, of L2 on L3, of L3 on L4, of L4 on L5, and of L5 on S1. Osseous marrow signal is overall within normal limits. Degenerative changes at the sacroiliac joints. SPINAL CORD: Conus terminates at the L1 level. SOFT TISSUES: There is fairly extensive edema in the posterior subcutaneous tissues. There is prominence of epidural fat at the lumbosacral junction region which may be developmental or reflective element of epidural lipomatosis. L1-L2: No significant narrowing. L2-L3: No significant narrowing. L3-L4: Disc bulge with facet arthropathy and thickening ligamentum flavum. Mild central canal narrowing. Mild bilateral neural foraminal narrowing. L4-L5: Disc bulge with facet arthropathy and thickening ligamentum flavum. Mild central canal narrowing. Mild bilateral neural foraminal narrowing. L5-S1: Disc bulge with facet arthropathy and thickening ligamentum flavum. Mild bilateral neural foraminalnarrowing. IMPRESSION: 1. Degenerative disc disease and facet arthropathy with mild narrowing 2. Other findings as above. Interpreted by: Mario Alberto Roberts MD Signed by: Mario Alberto Roberts MD 04/16/25 Final resultNormalSelect Medical Specialty Hospital - AkronHemoglobin A1Con [id number] glucose Estimated from glycated hemoglobin (Bld) [Mass/Vol]200 mg/dLBon [facility] HospitalComment on above:The ADA and AACC recommend providing the estimated average glucose result to permit better patient understanding of their HBA1c result. HbA1c (Bld) [Mass fraction]8.6 %High4.0 - 6.0 %[facility] Interpretation and review of laboratory resultsAbnormalBon [facility] HealthGlucose [Mass/Vol]200 mg/dLNoToledo Hospital Comment on above:Result Comment: The ADA and AACC recommend providing the estimated average glucose result to permit better patient understanding of their HBA1c result.Performed By: #### GLYHGB #### [facility] [address] [place] [address] Take Down Inspector: Melvin Santoyo MDHbA1c (Bld) [Mass fraction]8.6 %High4.0-6.0[facility] HospitalComment on above:Performed By: #### GLYHGB #### [facility] [address] [place] [id number] Take Down Inspector: Melvin Santoyo MDHemoglobin A1Con [id number] [Mass/Vol]177 mg/dLNoToledo HospitalComment on above:Result Comment: The ADA and AACC recommend providing the estimated average glucose result to permit better patient understanding of their HBA1c result.Performed By: #### LDLDIR, LIPR #### [employer] [address] [place] [address] Take Down Inspector: Melvin Santoyo MDHbA1c (Bld) [Mass fraction]7.8 %High4.0-6.0[facility] - AkronComment on above:Performed By: #### LDLDIR, LIPR #### [facility] [employer] [address] [place] [address] Take Down Inspector: Melvin Santoyo [facility] with Auto Differentialon [id number] (Bld) [#/Vol]0.10 10*3/uLBon Secours Mercy HealthBasophils/100 WBC (Bld)1 %0 - 2 %[facility] HealthEosinophils (Bld) [#/Vol]0.00 10*3/uLBon Secours Mercy HealthEosinophils/100 WBC (Bld)0 %0 - 4 %[facility] HealthErythrocyte distribution width (RBC) [Ratio]14.4 %11.5 - 14.9 %[facility] Hematocrit (Bld) [Volume fraction]27.8 %Low36 - 46 %[facility] Hemoglobin (Bld) [Mass/Vol]9.3 g/dLLow12.0 - 16.0 g/dLBon [facility] Interpretation and review of laboratory resultsAbnormalCar[facility] Clinic St. [facility] Lymphocytes/100 WBC (Bld)24 %24 - 44 %[facility] HospitalLymphocytes/100 WBC (Bld)2.60 %[facility] CenterH (RBC) [Entitic mass]31.2 pg26 - 34 pg [facility] Medical CenterHC (RBC) [Mass/Vol]33.3 g/dL31 - 37 g/dLBon [facility] HospitalV (RBC) [Entitic vol]93.6 fL80 - [address] [facility] Monocytes/100 WBC (Bld)9 %High1 - 7 %[facility] HospitalMonocytes/100 WBC (Bld)1.00 %[facility] HospitalNeutrophils/100 WBC (Bld)66 %36 - 66 %[facility] HospitalPlatelet mean volume (Bld) [Entitic vol]7.1 fL6.0 - 12.[address] Albans HospitalPlatelets (Bld) [#/Vol]366 10*3/uLCarilion Clinic St. Albans HospitalRBC (Bld) [#/Vol]2.97 10*6/uLLow4.0 - 5.2 m/uLCarilion Clinic St. [facility] Segmented neutrophils/100 WBC (Bld)7.40 %[facility] HospitalWBC other (Bld) [#/Vol]11.2HighBallad HealthCBC with Diffon 70-83-6614Ess. Basophil0.10 k/uLNormal0.0-0.2[facility]ostoria City HospitalComment on above:Performed By: #### CDP, CMPX #### [facility] [address] [place] [address] Take Down Inspector: Ed Mcduffie DOAbs.Neutrophil (Seg)7.40 k/uLNormal1.3-9.1 [facility] on above:Performed By: #### RICK, CMPX #### [facility] [place] [address] Take Down Inspector: Ed Mcduffie DOBasophils/100 WBC (Bld)1 %Normal0-2Mkettering health hamiltony Fostoria City HospitalComhenry ford hospital on above:Performed By: #### CDP, CMPX #### [facility] [address] [place] [address] Take Down Inspector: Ed Mcduffie DOEosinophils (Bld) [#/Vol]0.00 10*3/uLNormal 0.0-0.4[facility] SystemComhenry ford hospital on above:Performed By: #### RICK, CMPX #### [facility] [address] [place] [address] Take Down Inspector: Ed Mcduffie DOEosinophils/100 WBC (Bld)0 %Normal0-4[facility] SystemComhenry ford hospital on above:Performed By: #### RICK, CMPX #### [facility] [address] [place] [address] Take Down Inspector: Ed Mcduffie DOErythrocyte distribution width (RBC) [Ratio] 14.4 %Szjvji36.5-14.9[facility] on above:Performed By: #### RICK, CMPX #### [facility] [address] [place] [address] Take Down Inspector: Ed Mcduffie DOHematocrit (Bld) [Volume fraction]27.8 %Low 36-46[facility] SystemComhenry ford hospital on above:Performed By: #### CDP, CMPX #### [facility] [address] [place] [address] Take Down Inspector: Fanelly, Ed, DOHemoglobin (Bld) [Mass/Vol]9.3 g/dLLow 12.0-16.0[facility] on above:Performed By: #### CDP, CMPX #### [facility] [address] [place] [address] Take Down Inspector: Ed Mcduffie DOLymphocytes (Bld) [#/Vol]2.60 10*3/uLNormal 1.0-4.8[facility] SystemComhenry ford hospital on above:Performed By: #### CDP, CMPX #### [facility] [address] [place] [address] Take Down Inspector: Ed Mcduffie DOLymphocytes/100 WBC (Bld)24 %Ieobbe64-54RljvzMcKitrick Hospital on above:Performed By: #### CDP, CMPX #### [facility] [address] [place] [address] Take Down Inspector: Ed Mcduffie DOMCH (RBC) [Entitic mass]31.2 gsBofgih52-16 [facility] on above:Performed By: #### RICK, CMPX #### [facility] [address] [place] [address] Take Down Inspector: Ed Mcduffie DOMCHC (RBC) [Mass/Vol]33.3 g/wGGmlqtq81-30 [facility] on above:Performed By: #### RICK, CMPX #### [facility] [address] [place] [address] Take Down Inspector: Ed Mcduffie DOMCV (RBC) [Entitic vol]93.6 vROogdve65-390 [facility] on above:Performed By: #### CDP, CMPX #### [facility] [address] [place] [address] Take Down Inspector: Ed Mcduffie DOMonocytes (Bld) [#/Vol]1.00 10*3/uLNormal 0.1-1.3[facility]ostoria City HospitalComment on above:Performed By: #### CDP, CMPX #### [facility] [address] [facility] [place] [address] Take Down Inspector: Ed Mcduffie DOMonocytes/100 WBC (Bld)9 %High1-7[facility] Health SystemComment on above:Performed By: #### CDP, CMPX #### [facility] [address] [place] [address]. [place] [address] Take Down Inspector: Ed Mcduffie DONeutrophil (Seg)66 %Rgkrhq83-23DcxgaMount Carmel Health SystemComment on above:Performed By: #### CDP, CMPX #### [facility] [address] [place] [address]. [place] [address] Take Down Inspector: Ed Mcduffie DOPlatecory mean volume (Bld) [Entitic vol]7.1 fLNormal6.0-12.0[facility] Springfieldcy [facility] City HospitalComhenry ford hospital on above:Performed By: #### CDP, CMPX #### [facility] [address] [place] [address]. [place] [address] Take Down Inspector: Ed Mcduffie DOPlatelets (Bld) [#/Vol]366 10*3/uLNormal 150-450Mer[facility] HospitalComhenry ford hospital on above:Performed By: #### CDP, CMPX #### [facility] [address] [place] [address]. [place] [address] Take Down Inspector: Ed Mcduffie DORBC (Bld) [#/Vol]2.97 10*6/uLLow4.0-5.2[facility] HospitalComhenry ford hospital on above:Performed By: #### CDP, CMPX #### [facility] [address] [facility] [place] [address] Take Down Inspector: Ed Mcduffie DOWBC (Bld) [#/Vol]11.2 10*3/uLHigh3.5-11.0 [facility] Health SystemComment on above:Performed By: #### CDP, CMPX #### [facility] [address] [place] [address] Take Down Inspector: Ed Mcduffie DOComp Metabolic Pr/rfx MGon 32-50-8440Wfoakrw [Mass/Vol]4.1 g/dLNormal3.5-5.2[facility]oria City HospitalComment on above: Performed By: #### CDP, CMPX ####[facility] [address] [place], [place] [phone] Director: Ed Mcduffie DO Alkaline Phos54 U/TLihpgh74-670EipkrMount Carmel Health SystemComment on above: Performed By: #### RICK, CMPX ####[facility] [address] [place], [place] [phone] Director: Ed Mcduffie DOALT [Catalytic activity/Vol]11 U/XSpeimh15-57QixnhMount Carmel Health SystemComment on above:Performed By: #### RICK, CMPX ####[facility] [address] [facility].[place], [place] [phone] Director: Ed Mcduffie DO Anion gap [Moles/Vol]12 mmol/LNormal9-16[facility] Health SystemComment on above:Performed By: #### RICK, CMPX ####[facility] [address] [place], [place] [phone] Director: Ed Mcduffie DOAST [Catalytic activity/Vol]19 U/FGxywbz98-77YbcfaMount Carmel Health SystemComment on above:Performed By: #### CDP, CMPX ####[facility] [address] [facility], [place] [phone] Director: Ed Mcduffie DO Bilirubin [Mass/Vol]mg/dLNormal0.0-1.2MSelect Medical [facility]Health Rehabilitation HospitalComment on above:Performed By: #### RICK, CMPX ####[facility] [address] [place] [address].[place], [place] [phone] Director: Ed Mcduffie DO Calcium [Mass/Vol]9.2 mg/dLNormal8.6-10.4[facility] Health SystemComment on above:Performed By: #### RICK, ROSALBAX ####[address], [place] [phone] Director: Ed Mcduffie DO Chloride [Moles/Vol]102 mmol/TBvlagi32-226YhoyoMount Carmel Health SystemComment on above:Performed By: #### RICK, CMPX ####[facility] [address] [place] [address].[place], [place] [phone] Director: Ed Mcduffie DOCO2 [Moles/Vol]23 mmol/TBcmphs13-29MzteoMount Carmel Health SystemComhenry ford hospital on above: Performed By: #### RICK, CMPX ####[address], [place] [phone] Director: Ed Mcduffie DO Creatinine [Mass/Vol]1.0 mg/dLNormal0.7-1.2MSelect Medical OhioHealth Rehabilitation HospitalComment on above:Performed By: #### RICK, CMPX ####[address] [phone] Director: Ed Mcduffie DO GFR/1.73 sq M.predicted among non-blacks MDRD (S/P/Bld) [Vol rate/Area]68 mL/min/{1.73_m2}Normal>60[facility] on above:Result Comment: These results are not intended for use in patients <18 years of age. eGFR results are calculated without a race factor using the 1 CKD-EPI equation. Careful clinical correlation is recommended, particularly when comparing to results calculated using previous equations. The CKD-EPI equation is less accurate in patients with extremes of muscle mass, extra-renal metabolism of creatine, excessive creatine ingestion, or following therapy that affects renal tubular secretion.Performed By: #### RICK, CMPX ####[facility] [address] [place], [place] [phone] Director: Ed Mcduffie DOGlucose [Mass/Vol]294 mg/dL Exmk08-02Qiugm [facility] on above:Performed By: #### RICK, CMPX ####[address] [phone] Director: Ed Mcduffie DOPotassium [Moles/Vol]4.7 mmol/LNormal3.7-5.3[facility] City HospitalComhenry ford hospital on above:Performed By: #### RICK, CMPX ####[facility] [address] [place] [address] [phone] Director: Ed Mcduffie DOProtein [Mass/Vol]6.7 g/dL Normal6.6-8.7MerKettering Health Washington Township on above:Performed By: #### RICK, CMPX ####[facility] [address] [place] [address] [phone] Director: Ed Mcduffie DOSodium [Moles/Vol]137 mmol/L Lbdrze155-035HcofzKettering Health Washington Township on above:Performed By: #### RICK, CMPX ####[facility] [address] [place] [address].[place], [place] [phone] Director: Ed Mcduffie DOUrea nitrogen [Mass/Vol]28 mg/dLHigh6-20[facility] Thomaston HospitalComment on above:Performed By: #### CDP, CMPX ####[facility] [address] [address] [address] [facility] Director: Ed Mcduffie DOComprehensive Metabolic Panel w/ Reflex to MGon 97-49-7960Okzasax [Mass/Vol]4.1 g/dL3.5 - 5.2 g/dLBon SecLourdes Medical CenterAsia Bioenergy Technologies Berhad HealthALP [Catalytic activity/Vol]54 U/L35 - 104 U/LBon SecLourdes Medical CenterAsia [employer] Berhad HealthALT [Catalytic activity/Vol]11 U/L10 - 35 U/LBon Secours [facility] HospitalRosetta GenomicsAnion gap [Moles/Vol]12 mmol/L9 - 16 mmol/LBon Secours [place] [facility] HospitalAsia [employer] Berhad HealthAST [Catalytic activity/Vol]19 U/L10 - 35 U/LBon SecLourdes Medical CenterRosetta GenomicsBilirubin [Mass/Vol]mg/dL 0.0 - 1.2 mg/dLBon [facility] [employer] [facility] HospitalCalcium [Mass/Vol]9.2 mg/dL8.6 - 10.4 mg/dLBon SecLourdes Medical CenterAsia [employer] Berhad [facility] HospitalChloride [Moles/Vol]102 mmol/L98 - 107 mmol/LBon [facility]ours [facility] HospitalAsia [employer] Berhad HealthCO2 [Moles/Vol]23 mmol/L20 - 31 mmol/LBon St. [facility] Regional Medical CenterAsia [employer] Berhad [facility] HospitalCreatinine [Mass/Vol]1.0 mg/dL0.7 - 1.2 mg/dLBon SecLourdes Medical CenterAsia [employer] Berhad [facility] Methodist HospitalEst, Glom Filt Rate68- PINFBon [facility] HospitalComment on above: These results are not intended [...] therapy that affects renal tubular secretion. Glucose [Mass/Vol]294 mg/yTVxwc19 - 99 mg/dLBon [facility] Regional Medical CenterPrestoSports Interpretation and review of laboratory resultsAbnormalBon St. Mary Regional Medical CenterRosetta Genomics Potassium [Moles/Vol]4.7 mmol/L3.7 - 5.3 mmol/LBon [facility]ours Mercy HealthProtein [Mass/Vol]6.7 g/dL6.6 - 8.7 g/dLBon [facility] HospitalSodium [Moles/Vol]137 mmol/L136 - 145 mmol/LBon [facility] HospitalUrea nitrogen [Mass/Vol]28 mg/dL High6 - 20 mg/dLBon Community Memorial HospitalGlucose,Whole Bloodon 14-14-0458Rtxniao [Mass/Vol]381 mg/bEJjaq46-433DwaovMount Carmel Health SystemGlucose [Mass/Vol]310 mg/dEDijh20-806RcuexMount Carmel Health SystemGlucose [Mass/Vol]297 mg/iDUxop05-782FyismMount Carmel Health SystemPO Glucose Fingerstickon 04-29-4421Bkmdcnx [Mass/Vol]381 mg/xLXgbw68 - 105 mg/dLBon [facility] Interpretation and review of laboratory resultsAbnormalSovah Health - DanvilleGlucose [Mass/Vol]310 mg/lYRsgq74 - 105 mg/dLBon [facility] HospitalInterpretation and review of laboratory resultsAbnormalBallad HealthGlucose [Mass/Vol]297 mg/sWQzqw52 - 105 mg/dLBon [facility] HospitalInterpretation and review of laboratory results AbnormalBon Community Memorial HospitalFLUORO FOR SURGICAL PROCEDURESon 17-10-0916LSQDQV FOR SURGICAL PROCEDURESRadiology exam is complete. No Radiologist dictation. Please follow up with ordering provider. Final resultNormalMercy Fostoria City HospitalGlucose,Whole Bloodon 09-14-2024 Glucose [Mass/Vol]353 mg/vRKfox51-654LwqvdMount Carmel Health SystemGlucose [Mass/Vol]402 mg/dLCritically khrh29-305YykgjMount Carmel Health SystemGlucose [Mass/Vol]301 mg/jANraa45-729QssukMount Carmel Health SystemGlucose [Mass/Vol]280 mg/jUYoop69-504Kvhrz St. Charles HospitalGuidance-- during surgeryon 09-14-2024 Radiology exam is complete. No Radiologist dictation. Please follow up with ordering provider. PN RIS CONSOLIDATEDNo Panel Informationon . Postsurgical changes of the left foot without visualized complication. 2. Questioned minimal anterior subluxation of the talus in relation to the distal tibia. 3. Note that overlying casting material obscures fine bony detail. [facility] CONSOLIDATEDEXAMINATION: THREE XRAY VIEWS OF THE LEFT ANKLE; [...] material. No lytic or blastic lesions present. [facility] Hollie Landry MD - 09/14/2024 EXAMINATION: THREE XRAY VIEWS [...] overlying casting material obscures fine bony detail. [facility] TrumpITSentara Obici HospitalRadiology Study observation (narrative)[facility] WannadoNo Panel InformationOrdered By: Hollie Patiño on 05-39-9008Yld [facility] Wannado Work Phone: POC Glucose Fingerstickon 93-41-6458Whmchbo [Mass/Vol] 353 mg/tJUmsv90 - 105 mg/dLBon [facility] BabelverseInterpretation and review of laboratory resultsAbnormVirginia Hospital Center Glucose [Mass/Vol]402 mg/dLCritically high65 - 105 mg/dLBDickenson Community Hospital Interpretation and review of laboratory resultsAbnormBon Secours St. Mary's HospitalGlucose [Mass/Vol]301 mg/mYWcmo87 - 105 mg/dLBon [facility] HospitalInterpretation and review of laboratory resultsAbnormalBallad HealthGlucose [Mass/Vol]280 mg/cSEjmg84 - 105 mg/dLBon [facility] HospitalInterpretation and review of laboratory results [facility] Prairies HospitalSurgical Pathology Reporton [id number] Pathology Report(NOTE) Path Number: [id number] -- Diagnosis -- ORTHOPEDIC HARDWARE, LEFT ANKLE, GROSS ONLY. Yadira Schofield. Electronically Signed Out 10/07/2309/18/2024 Clinical Information Pre-Op Diagnosis: CHARCOT ANKLE, LEFT; DIABETES Operative Findings: EXPLANTED LEFT ANKLE HARDWARE FOR SPD Operation Performed: REMOVAL EXTERNAL FIXATOR LEFT FOOT; SUBTALAR JOINT FUSION MIDFOOT MULTIPLE JOINTS LEFT FOOT se Source of Specimen A: EXPLANTED LEFT ANKLE HARDWARE FOR SPD Gross Description VIRGIL WARNER, EXPLANTED LEFT ANKLE HARDWARE FOR SPD Received fresh are two conner metallic, hollow, circular components with an external diameter of 19.0 cm and an internal diameter of 16.0 cm and are 19.0 x 19.0 x 0.6 cm. One bears the inscription [phone] [id number] 160MM ID 2 CE and the other [phone] [id number] 160MM ID 2 CE. There is a C-shaped conner metallic component that is 17.0 x 1.5 x 0.6 cm bearing the inscription [phone] [id number] 140MM ID 2. There is a U-shaped conner metallic device that is roughly 51.0 x 4.0 x 0.9 cm bearing the inscription [phone] [id number] CE 123 140MM ID. It has two threaded regions and two embedded conner metallic threaded screws that are 2.9 to 3.0 cm in length x 0.6 to 1.4 cm in diameter, with attached nuts. One screw bears the inscription [id number] [phone] CE and the other [id number] [phone] CE. There are two black to conner metallic and rubbery components that are 28.8 x 3.5 x 2.3 cm. It bears the inscription FRONT and [id number] CE 2. It has two additional black to conner metallic components attached by threaded screws and washers that are 5.7 cm in length x 0.6 to 1.0 cm in diameter. These components there the inscription [id number] 2. There are four conner metallic rectangular components each with four hollow spaces. It is 5.7 x 1.2 x 0.9 cm. They bear inscription [phone] CE [id number], [phone] CE [id number], [phone] CE [id number] and [phone] CE [id number]. There is a 3.3 x 1.2 x 0.9 cm conner metallic component with two hollow spaces that bears the inscription [phone] CE [id number]. There are eighteen conner, metallic, hexagonal threaded [...] diameter. They bear the inscriptions [phone] 16 [id number], 54-2233 16 [id number], 54-2233 16 [id number] and 54-2233 16 [id number]. There are three threaded conner, metallic bolt-like components that are 1.0 cm in length x 1.5 cm in diameter that there the inscription 54-2235 [id number], 54-2235 [id number] and 54-2235 [id number]. There are fourteen threaded conner, metallic components that are 2.9 cm in length x 0.6 to 1.4 cm in diameter, eight of which that bear the inscription [id number] 54-1152 CE. One bears the inscription [id number] 54-1152 CE and another [id number] 54-1152 CE. Two bare the inscription [id number] 54-1152 CE. Two bear the inscription [id number] 54-1152 CE. Lastly, there are four additional conner to black components that vary in size from 20.0 to 21.0 cm in length x 0.6 to 2.5 cm in diameter bearing inscriptions [phone] [id number] CE TLR STRUT-LONG 2 , 50-1090 [id number] CE TLR STRUT-LONG 2 , 50-26007 [id number] CE TLR STRUT-LONG 2 , and 50-29767 [id number] CE TLR STRUT-LONG 2. No sections are submitted for microscopic evaluation. Gross exam only. Yadira Wright./se:09/17/2024 Processing Lab: [address] [address] Interpretation Performed at [address] [phone] SURGICAL PATHOLOGY CONSULTATION Patient Name: VIRGIL WARNER [facility] Rec: [id number] [facility] ANATOMIC PATHOLOGY [facility] HospitalD[place], [place] [phone] NoLakeHealth Beachwood Medical CenterXR ANKLE LEFT (MIN 3 VIEWS)on 71-76-9089HI ANKLE LEFT (MIN 3 VIEWS)EXAMINATION: THREE XRAY VIEWS OF THE LEFT ANKLE; [...] Signed by: Hollie Patiño MD 09/14/[address] Anne HospitalXR FOOT LEFT (MIN 3 VIEWS)on 37-72-7123YV FOOT LEFT (MIN 3 VIEWS)EXAMINATION: THREE XRAY VIEWS OF THE LEFT ANKLE; [...] Signed by: Hollie Patiño MD 09/14/24 Final resultNormalMercy Fostoria City HospitalXR TIBIA FIBULA LEFT (2 VIEWS)on 29-05-2732II TIBIA FIBULA LEFT (2 VIEWS)EXAMINATION: THREE XRAY VIEWS OF THE LEFT ANKLE; [...] Signed by: Hollie Patiño MD 09/14/[address] [facility] Metabolic Panelon 09-07-2024 Anion gap [Moles/Vol]13 mmol/L9 - 16 mmol/LBon SecBaolab Microsystems HealthCalcium [Mass/Vol]10.4 mg/dL8.6 - 10.4 mg/dLBon SecBaolab Microsystems HealthChloride [Moles/Vol] 104 mmol/L98 - 107 mmol/LBon SecBaolab Microsystems HealthCO2 [Moles/Vol]25 mmol/L20 - 31 mmol/LBon SecBaolab Microsystems HealthCreatinine [Mass/Vol]1.1 mg/dL0.7 - 1.2 mg/dLBon SecBaolab Microsystems HealthEst, Glom Filt Rate61- PINFBon Intersystems InternationalComment on above: These results are not intended [...] therapy that affects renal tubular secretion. Glucose [Mass/Vol]90 mg/dL74 - 99 mg/dLBon Intersystems InternationalInterpretation and review of laboratory resultsAbnormalBon [place] Idream[employer] Technology HealthPotassium [Moles/Vol]4.8 mmol/L3.7 - 5.3 mmol/LBon [place] IdreamSky Technology HealthComment on above: Specimen hemolysis has exceeded the interference as defined by [employer]. Value may be falsely increased. Suggest recollection if clinically indicated. Sodium [Moles/Vol]142 mmol/L136 - 145 mmol/LBon Intersystems InternationalUrea nitrogen [Mass/Vol]27 mg/dLHigh6 - 20 mg/dLBon SecBaolab Microsystems HealthBon SecPrestoSportsBasic Metabolic Profon 88-84-5980Jvvmd gap [Moles/Vol]13 mmol/L Normal9-16[facility] Health SystemComment on above:Performed By: #### LASHON, CDP ####[facility] [address] [facility], [place] [phone] Director: Ed Mcduffie DOCalcium [Mass/Vol]10.4 mg/dL Normal8.6-10.4[facility] Health SystemComhenry ford hospital on above:Performed By: #### BMP, CDP ####[facility] [address] [facility].[place], [place] [phone] Director: Ed Mcduffie DOChloride [Moles/Vol]104 mmol/L Qdohgt85-607EzwsiMount Carmel Health SystemComhenry ford hospital on above:Performed By: #### LASHON, CDP ####[place] [address] [facility].[place], [place] [address] [phone] Director: Ed Mcduffie DOCO2 [Moles/Vol]25 mmol/LNormal 20-31[facility] Health SystemComhenry ford hospital on above:Performed By: #### LASHON, CDP ####[facility] [address] [facility].[place], [place] [phone] Director: Ed Mcduffie DOCreatinine [Mass/Vol]1.1 mg/dL Normal0.7-1.2MercDiley Ridge Medical CenterComhenry ford hospital on above:Performed By: #### LASHON, CDP ####[facility] [address] [place] [phone] Director: Ed Mcduffie DOGFR/1.73 sq M.predicted among non-blacks MDRD (S/P/Bld) [Vol rate/Area]61 mL/min/{1.73_m2}Normal>60MerEast Liverpool City HospitalComhenry ford hospital on above:Result Comment: These results are not intended for [...] or following therapy that affects renal tubular secretion.Performed By: #### BMP, CDP ####[facility] [address] [place], [place] [phone] Director: Ed Mcduffie DOGlucose [Mass/Vol]90 mg/dL Xwtiau15-71Smned [facility]oria City HospitalComment on above:Performed By: #### BMP, CDP ####[facility] [address] [place], [place] [phone] Director: Ed Mcduffie DOPotassium [Moles/Vol]4.8 mmol/LNormal3.7-5.3Mer[facility]ostoria City HospitalComment on above:Result Comment: Specimen hemolysis has exceeded the interference as defined by Amauri. Value may be falsely increased. Suggest recollection if clinically indicated.Performed By: #### BMP, CDP ####[facility] [address] [facility].[place], [place] [phone] Director: Ed Mcduffie DOSodium [Moles/Vol]142 mmol/GOlnnzu885-467UkmpdEast Liverpool City HospitalComhenry ford hospital on above:Performed By: #### BMP, CDP ####[address], [place] [phone] Director: Ed Mcduffie DOUrea nitrogen [Mass/Vol]27 mg/dLHigh6-20MerEast Liverpool City HospitalComhenry ford hospital on above:Performed By: #### LASHON, CDP ####[facility] [address] [place] [address].[place], [place] [phone] Director: Ed Mcduffie DOCBC with Auto Differentialon [id number] (Bld) [#/Vol]0.10 10*3/uLBon [facility] Interpretation and review of laboratory resultsAbnormalBon [facility] Lymphocytes/100 WBC (Bld)3.20 %[facility] HospitalMonocytes/100 WBC (Bld) 0.70 %[facility] HospitalNeutrophils/100 WBC (Bld)43 %36 - 66 %[facility] HospitalSegmented neutrophils/100 WBC (Bld)3.30 %[facility] HospitalWBC other (Bld) [#/Vol]7.6Bon [facility] HospitalBon [facility] HospitalCBC with Diffon [id number]. Basophil0.10 k/uLNormal0.0-0.2Mkettering health hamiltony [facility] Comment on above:Performed By: #### LASHON, CDP ####[facility] [address] [place] [address] Lab Director: Ed Mcduffie DOAbs.Neutrophil (Seg)3.30 k/uLNormal1.3-9.1MercDiley Ridge Medical CenterComment on above:Performed By: #### LASHON, CDP ####[facility] [address] [facility] [place] [address] Lab Director: Ed Mcduffie DOBasophils/100 WBC (Bld)1 %Normal0-2Bon [facility] Comment on above:Performed By: #### LASHON, CDP ####[facility] [address] [facility] [place] [address] Lab Director: Ed Mcduffie DOEosinophils (Bld) [#/Vol]0.40 10*3/uLNormal0.0-0.4Bon [facility] HospitalComment on above:Performed By: #### LASHON, CDP ####[facility] [address] [facility] [place] [address] Lab Director: Ed Mcduffie DOEosinophils/100 WBC (Bld)5 %High0-4Bon [facility] Comment on above:Performed By: #### LASHON, CDP ####[facility] [address] [place] [address] Lab Director: Ed Mcduffie DOErythrocyte distribution width (RBC) [Ratio]14.4 %Bhsyqa85.5-14.[address] [facility] HospitalComhenry ford hospital on above:Performed By: #### BMP, CDP ####[address] [address] Lab Director: Ed Mcduffie DOHematocrit (Bld) [Volume fraction]35.3 %Zwt27-[address] Albans HospitalComment on above:Performed By: #### BMP, CDP ####[address] [phone] Director: Ed Mcduffie DOHemoglobin (Bld) [Mass/Vol]11.6 g/dLLow12.0-16.[address] [facility] HospitalComhenry ford hospital on above:Performed By: #### BMP, CDP ####[address] [address] Lab Director: Ed Mcduffie DOLymphocytes (Bld) [#/Vol]3.20 10*3/uLNormal 1.0-4.8[facility] Health SystemComhenry ford hospital on above:Performed By: #### BMP, CDP ####[address] [address] Lab Director: Ed Mcduffie DOLymphocytes/100 WBC (Bld)42 % Clyxcl26-36Rql [facility] HospitalComment on above:Performed By: #### BMP, CDP ####[address] [address] Lab Director: Ed Mcduffie DOMCH (RBC) [Entitic mass]30.8 fmJlwktf78-00Tzl [facility] HospitalComment on above:Performed By: #### BMP, CDP ####[facility] [address] [facility] [phone] Director: Ed Mcduffie DOMCHC (RBC) [Mass/Vol]32.9 g/dL Gyrbiv74-74Qol [facility] HospitalComment on above:Performed By: #### BMP, CDP ####[address] [place] [address] [address] [phone] Director: Ed Mcduffie DOMCV (RBC) [Entitic vol]93.5 fL Rjbsat44-319Eti [facility] HospitalComment on above:Performed By: #### BMP, CDP ####[address] [place] [address] [address] [phone] Director: Ed Mcduffie DOMonocytes (Bld) [#/Vol]0.70 10*3/uLNormal0.1-1.3[facility] City HospitalComhenry ford hospital on above:Performed By: #### BMP, CDP ####[address], [place] [phone] Director: Ed Mcduffie DOMonocytes/100 WBC (Bld)9 %High1-7Bon SecCincinnati VA Medical CenterComhenry ford hospital on above:Performed By: #### BMP, CDP ####[address] [place] [address] [address] [phone] Director: Ed Mcduffie DONeutrophil (Seg)43 %Normal 36-66Mer[facility] City HospitalComhenry ford hospital on above:Performed By: #### BMP, CDP ####[address] [address] [phone] Director: Ed Mcduffie DOPlatelet mean volume (Bld) [Entitic vol]7.3 fLNormal6.0-12.0Bon SecCincinnati VA Medical CenterComment on above: Performed By: #### BMP, CDP ####[facility] [address] [place] [address] Lab Director: Ed Mcduffie DO Platelets (Bld) [#/Vol]447 10*3/wKPxxlge489-904Iof [facility] HospitalComment on above:Performed By: #### BMP, CDP ####[facility] [address] [facility] [place] [address] Lab Director: Ed Mcduffie DORBC (Bld) [#/Vol]3.78 10*6/uLLow4.0-5.2Bon [facility] Comment on above:Performed By: #### BMP, CDP ####[facility] [address] [facility] [place] [address] Lab Director: Ed Mcduffie DOWBC (Bld) [#/Vol]7.6 10*3/uLNormal3.5-11.0[facility] Health SystemComment on above:Performed By: #### BMP, CDP ####[facility] [address] [facility] [place] [address] Lab Director: Ed Mcduffie DOCT FOOT LEFT WO CONTRASTon 09-49-2592EQ FOOT LEFT WO CONTRASTEXAMINATION: CT OF THE LEFT FOOT WITHOUT CONTRAST [...] Signed by: Xiomara Betts MD 09/03/24 Final resultNormalMerHartford HospitalC-Reactive Proteinon [id number] High sensitivity method [Mass/Vol]24.8 mg/LHigh0.0 - 5.0 mg/LBon [facility] Interpretation and review of laboratory resultsAbnormalSovah Health - DanvilleCRP [Mass/Vol]24.8 mg/LHigh0.0-5.0[facility] Health SystemComment on above:Performed By: #### CRP ####[facility] [address] [place] [address] [facility] Director: Ed Mcduffie DOCKon [id number] [Catalytic activity/Vol]216 U/LHigh26 - 192 U/L [facility] HospitalInterpretation and review of laboratory resultsAbnormal Ballad HealthCT ANKLE LEFT WO CONTRASTon [id number] ANKLE LEFT WO CONTRASTEXAMINATION: CT OF THE LEFT ANKLE WITHOUT CONTRAST 07/26/2024 3:23 pm TECHNIQUE: CT of the left ankle was performed without the administration of intravenous contrast. Multiplanar reformatted images are provided for review. Automated exposure control, iterative reconstruction, and/or weight based adjustment of the mA/kV was utilized to reduce the radiation dose to as low as reasonably achievable. COMPARISON: None. HISTORY ORDERING SYSTEM PROVIDED HISTORY: [facility] ankle TECHNOLOGIST PROVIDED HISTORY: Ankle-hindfoot: Reformat Coronal [...] Signed by: Ani Trejo MD 07/26/24 Final resultNormalMercy Fostoria City HospitalCT FOOT LEFT WO CONTRASTon 99-52-0525IW FOOT LEFT WO CONTRASTEXAMINATION: CT OF THE LEFT FOOT WITHOUT CONTRAST [...] July 13 HISTORY ORDERING SYSTEM PROVIDED HISTORY: [facility] ankle TECHNOLOGIST PROVIDED HISTORY: [facility] ankle Is [...] Signed by: Jason Long MD 07/26/24 Final resultNormalMount Carmel Health SystemCreatine Kinaseon [id number] [Catalytic activity/Vol]216 U/TBtbb81-059XypbuMount Carmel Health SystemComment on above:Performed By: #### CK, ECENZ #### [facility] Lab [address] [place] [address] Take Down Inspector: Ed Mcduffie DOGlucose,Whole Bloodon [id number] [Mass/Vol]278 mg/nRYzex19-303DaacoMount Carmel Health SystemGlucose [Mass/Vol]72 mg/xIXosspz56-423XnuhmMount Carmel Health SystemGlucose [Mass/Vol]180 mg/vSHhcy47-266 [facility] Health SystemGlucose [Mass/Vol]203 mg/mEVmhg91-280RzdloMount Carmel Health SystemPO Glucose Fingerstickon 68-82-0740Utofzsp [Mass/Vol]278 mg/nEFkyj63 - 105 mg/dLBon Secours Mercy HealthInterpretation and review of laboratory resultsAbnormalBallad HealthGlucose [Mass/Vol]72 mg/dL65 - 105 mg/dLBon [facility] Glucose [Mass/Vol]180 mg/wRTpmt01 - 105 mg/dLBon [facility] Interpretation and review of laboratory resultsAbnormalCar[facility] Clinic St[facility] Bon [facility] HospitalGlucose [Mass/Vol]203 mg/eKVwyh81 - 105 mg/dLBon [facility] HospitalInterpretation and review of laboratory resultsAbnormalBallad HealthTrop/Myoglobinon 99-94-3138Tyblfhwpstbqjl and review of laboratory resultsAbnormTwin County Regional HealthcareMyoglobin [Mass/Vol]79 ng/rXKmom75 - 58 ng/mLCarilion Clinic St. Albans HospitalTroponin I.cardiac High sensitivity method [Mass/Vol]23 ng/LHigh0 - 14 ng/LBon [facility] Comment on above:High Sensitivity Troponin values cannot be compared with other Troponin methodologies.[facility] HospitalMyoglobin [Mass/Vol]79 ng/mLHigh 25-58[facility]oria City HospitalComment on above:Performed By: #### CKBRAD #### [facility] Lab [address] [place] [address] Take Down Inspector: Ed Mcduffie DOTroponin, High Sens23 ng/LHigh0-14Mc[facility] on above:Result Comment: High Sensitivity Troponin values cannot be compared with other Troponin methodologies.Performed By: #### CK, ECENZ #### [facility] Lab [address] [place] [address] Take Down Inspector: Ed Mcduffie DOCBC with Auto Differentialon 07-25-2024 Basophils (Bld) [#/Vol]0.10 10*3/uLBon [facility] HospitalBasophils/100 WBC (Bld)1 %0 - 2 %[facility] HospitalEosinophils (Bld) [#/Vol]0.20 10*3/uLBon SecCincinnati VA Medical CenterEosinophils/100 WBC (Bld)2 %0 - 4 %[facility] Erythrocyte distribution width (RBC) [Ratio]14.0 %11.5 - 14.9 %[facility] HospitalHematocrit (Bld) [Volume fraction]33.2 %Low36 - 46 %[facility] HospitalHemoglobin (Bld) [Mass/Vol]10.9 g/dLLow12.0 - 16.0 g/dLBon [facility] HospitalInterpretation and review of laboratory resultsAbnormalBon [facility] HospitalLymphocytes/100 WBC (Bld)40 %24 - 44 %[facility] Lymphocytes/100 WBC (Bld)4.10 %[facility] Medical CenterH (RBC) [Entitic mass] 31.3 pg26 - 34 pgBon [facility] HospitalHC (RBC) [Mass/Vol]32.7 g/dL31 - 37 g/dLBon [facility] HospitalV (RBC) [Entitic vol]95.7 fL80 - [address] Albans HospitalMonocytes/100 WBC (Bld)7 %1 - 7 %[facility] Monocytes/100 WBC (Bld)0.70 %[facility] HospitalNeutrophils/100 WBC (Bld)50 %36 - 66 %[facility] HospitalPlatelet mean volume (Bld) [Entitic vol]7.0 fL 6.0 - 12.0 fLBon SecOchsner Medical Center HealthPlatelets (Bld) [#/Vol]460 10*3/uLHighBon SecCincinnati VA Medical CenterRBC (Bld) [#/Vol]3.46 10*6/uLLow4.0 - 5.2 m/uLBon [facility] HospitalSegmented neutrophils/100 WBC (Bld)5.10 %[facility] HospitalWBC other (Bld) [#/Vol]10.2Bon SecChildren's Hospital of Wisconsin– MilwaukeeCBC with Diffon 98-38-1991Vig. Basophil0.10 k/uLNormal0.0-0.2[facility] Comment on above:Performed By: #### CDP, CP ####[facility] [address] [facility].[place], [place] [phone] Director: Ed Mcduffie DOAbs.Neutrophil (Seg)5.10 k/uLNormal1.3-9.1Mer[facility] City HospitalComment on above:Performed By: #### CDP, CP ####[facility] [address] [facility].[place], [place] [phone] Director: Ed Mcduffie DOBasophils/100 WBC (Bld)1 %Normal0-2[facility] City HospitalComment on above:Performed By: #### CDP, CP ####[address], [place] [phone] Director: Ed Mcduffie DOEosinophils (Bld) [#/Vol]0.20 10*3/uLNormal0.0-0.4MerEast Liverpool City HospitalComment on above:Performed By: #### CDP, CP ####[address], [place] [phone] Director: Ed Mcduffie DOEosinophils/100 WBC (Bld)2 %Normal0-4[facility] Health SystemComment on above:Performed By: #### CDP, CP ####[facility] [address] [place] [address].[place], [place] [phone] Director: Ed Mcduffie DOErythrocyte distribution width (RBC) [Ratio]14.0 %Normal 11.5-14.9[facility] Health SystemComment on above:Performed By: #### CDP, CP ####[address] [phone] Director: Ed Mcduffie DOHematocrit (Bld) [Volume fraction]33.2 %Jqd33-19RffsaEast Liverpool City HospitalComment on above:Performed By: #### CDP, CP ####[facility] [address] [place], [place] [phone] Director: Ed Mcduffie DOHemoglobin (Bld) [Mass/Vol]10.9 g/dLLow12.0-16.0[facility] Health SystemComhenry ford hospital on above: Performed By: #### CDP, CP ####[facility] [address] [place] [address] [phone] Director: Ed Mcduffie DOLymphocytes (Bld) [#/Vol]4.10 10*3/uLNormal1.0-4.8[facility] Health SystemComhenry ford hospital on above:Performed By: #### CDP, CP ####[address] [phone] Director: Ed Mcduffie DO Lymphocytes/100 WBC (Bld)40 %Dofjuu80-49PbiffMount Carmel Health SystemComhenry ford hospital on above:Performed By: #### CDP, CP ####[address] [phone] Director: Ed Mcduffie DOMCH (RBC) [Entitic mass]31.3 huXhpjpv16-48UocojEast Liverpool City HospitalComhenry ford hospital on above:Performed By: #### CDP, CP ####[facility] [address] [place] [address] [phone] Director: Ed Mcduffie DOMCHC (RBC) [Mass/Vol]32.7 g/cROkcdkd52-63KxaqxMount Carmel Health SystemComhenry ford hospital on above: Performed By: #### CDP, CP ####[facility] [address] [place] [address] [phone] Director: Ed Mcduffie DOMCV (RBC) [Entitic vol]95.7 pWXwxbze77-252PixabMount Carmel Health SystemComhenry ford hospital on above: Performed By: #### CDP, CP ####[facility] [address] [facility], [place] [phone] Director: Ed Mcduffie DOMonocytes (Bld) [#/Vol]0.70 10*3/uLNormal0.1-1.3[facility] HospitalComhenry ford hospital on above:Performed By: #### CDP, CP ####[facility] E[address] [facility].[place], [place] [phone] Director: Ed Mcduffie DO Monocytes/100 WBC (Bld)7 %Normal1-7[facility] Health SystemComhenry ford hospital on above: Performed By: #### CDP, CP ####[address], [place] [phone] Director: Ed Mcduffie DONeutrophil (Seg)50 %Pwmnwr48-72JmuncMount Carmel Health SystemComhenry ford hospital on above:Performed By: #### CDP, CP ####[place] [address] [facility].[place], [place] [phone] Director: Ed Mcduffie DOPlatelet mean volume (Bld) [Entitic vol]7.0 fLNormal6.0-12.0[facility] Health SystemComhenry ford hospital on above:Performed By: #### CDP, CP ####[facility] [address] [facility], [place] [phone] Director: Ed Mcduffie DO Platelets (Bld) [#/Vol]460 10*3/rVJget729-643VujlxMount Carmel Health SystemComhenry ford hospital on above:Performed By: #### CDP, CP ####[facility] [address] [place] [address].[place], [place] [phone] Director: Ed Mcduffie DORBC (Bld) [#/Vol]3.46 10*6/uLLow4.0-5.2MSelect Medical [facility] Comment on above:Performed By: #### CDP, CP ####[facility] [address], [place] [phone] Director: Ed Mcduffie DOWBC (Bld) [#/Vol]10.2 10*3/uLNormal3.5-11.0[facility] Health SystemComment on above:Performed By: #### CDP, CP ####[facility] [address], [place] [phone] Director: Ed Mcduffie DOComp Metabolic Profon 76-46-0757Rjwpsrh [Mass/Vol]4.0 g/dL Normal3.5-5.2MSelect Medical OhioHealth Rehabilitation HospitalComment on above:Performed By: #### CHIRAG, ECENZ #### [facility] Lab [address] [facility] [place] [address] Take Down Inspector: Ed Mcduffie DOAlkaline Phos62 U/JTylciq20-992SmymoMount Carmel Health SystemComment on above:Performed By: #### CHIRAG, ECENZ #### [facility] Lab [address] [facility] [place] [address] Take Down Inspector: Ed Mcduffie DOALT [Catalytic activity/Vol]12 U/KBqvzby32-84 [facility] Health SystemComment on above:Performed By: #### CHIRAG, ECENZ #### [facility] Lab [address] [facility] [place] [address] Take Down Inspector: Ed Mcduffie DOAnion gap [Moles/Vol]13 mmol/LNormal9-16Mount [facility] Health SystemComhenry ford hospital on above:Performed By: #### CK, ECENZ #### [facility] Lab [address] [facility] [place] [address] Take Down Inspector: Fanelly, Ed, DOAST [Catalytic activity/Vol]19 U/PPnnegj67-56 [facility] Health SystemComment on above:Performed By: #### CHIRAG, ECENZ #### [facility] Lab [address] [place] [address] Take Down Inspector: Ed Mcduffie DOBilirubin [Mass/Vol]mg/dLNormal0.0-1.2MSelect Medical OhioHealth Rehabilitation HospitalComment on above:Performed By: #### CHIRAG, ECENZ #### [facility] Lab [address] [place] [address] Take Down Inspector: Ed Mcduffie DOCalcium [Mass/Vol]9.4 mg/dLNormal8.6-10.4 [facility] SystemComhenry ford hospital on above:Performed By: #### CHIRAG, ECENZ #### [facility] Lab [address] [place] [address] Take Down Inspector: Ed Mcduffie DOChloride [Moles/Vol]99 mmol/FVzzhgk16-455 [facility] SystemComhenry ford hospital on above:Performed By: #### CHIRAG, ECENZ #### [facility] Lab [address] [place] [address] Take Down Inspector: Ed Mcduffie DOCO2 [Moles/Vol]23 mmol/QVbpbii58-54PnxmwMount Carmel Health SystemComhenry ford hospital on above:Performed By: #### CHIRAG, ECENZ #### [facility] Lab [address] [place] [address] Take Down Inspector: Ed Mcduffie DOCreatinine [Mass/Vol]1.2 mg/dLNormal0.7-1.2 [facility] SystemComhenry ford hospital on above:Performed By: #### CHIRAG, ECENZ #### [facility] Lab [address] [place] [address] Take Down Inspector: Ed Mcduffie, DOGFR/1.73 sq M.predicted among non-blacks MDRD (S/P/Bld) [Vol rate/Area]55 mL/min/{1.73_m2}Low>60[facility] Comment on above:Result Comment: These results are not intended for [...] or following therapy that affects renal tubular secretion.Performed By: #### CK, ECENZ #### [facility] Lab [address] [place] [address] Take Down Inspector: Ed Mcduffie DOGlucose [Mass/Vol]191 mg/uUDgli30-17ZhbzhSelect Medical OhioHealth Rehabilitation HospitalComment on above:Performed By: #### CHIRAG, ECENZ #### [facility] Lab [address] [place] [address]. [place] [address] Take Down Inspector: Ed Mcduffie DOPotassium [Moles/Vol]4.6 mmol/LNormal3.7-5.3 [facility] SystemComhenry ford hospital on above:Performed By: #### CHIRAG, ECENZ #### [facility] Lab [address] [place] [address] Take Down Inspector: Ed Mcduffie DOProtein [Mass/Vol]7.1 g/dLNormal6.6-8.7[facility] Health SystemComhenry ford hospital on above:Performed By: #### CHIRAG, ECENZ #### [facility] Lab [address] [place] [address] Take Down Inspector: Ed Mcduffie DOSodium [Moles/Vol]135 mmol/QQlt878-051GjifjMount Carmel Health SystemComment on above:Performed By: #### CK, ECENZ #### [facility] Lab [address] [place] [address] Take Down Inspector: Ed Mcduffie DOUrea nitrogen [Mass/Vol]38 mg/dLHigh6-20[facility] City HospitalComment on above:Performed By: #### BRAD BEARD #### [facility] Lab [address] [place] [address] Take Down Inspector: Ed Mcduffie DOComprehensive Metabolic Panelon 07-25-2024 Albumin [Mass/Vol]4.0 g/dL3.5 - 5.2 g/dLBon [facility] HospitalALP [Catalytic activity/Vol]62 U/L35 - 104 U/LBon [facility] HospitalALT [Catalytic activity/Vol]12 U/L10 - 35 U/LBon [facility] HospitalAnion gap [Moles/Vol]13 mmol/L9 - 16 mmol/LBon [facility] HealthAST [Catalytic activity/Vol]19 U/L10 - 35 U/LBon [facility] HospitalBilirubin [Mass/Vol]mg/dL0.0 - 1.2 mg/dLBon [facility] HospitalCalcium [Mass/Vol]9.4 mg/dL8.6 - 10.4 mg/dLBon [facility] HospitalChloride [Moles/Vol]99 mmol/L98 - 107 mmol/LBon [facility] HospitalCO2 [Moles/Vol]23 mmol/L20 - 31 mmol/LBon [facility] HospitalCreatinine [Mass/Vol] 1.2 mg/dL0.7 - 1.2 mg/dLBon [facility] HealthEst, Glom Filt Kdhs75Cso- PINF Bon [facility] HospitalComhenry ford hospital on above: These results are not intended [...] therapy that affects renal tubular secretion. Glucose [Mass/Vol]191 mg/sMYirr95 - 99 mg/dLBon [facility] Interpretation and review of laboratory resultsAbnormalBon [facility] Potassium [Moles/Vol]4.6 mmol/L3.7 - 5.3 mmol/LBon [facility] HospitalProtein [Mass/Vol]7.1 g/dL6.6 - 8.7 g/dLBon [facility] HospitalSodium [Moles/Vol]135 mmol/YCpj983 - 145 mmol/LBon [facility] HospitalUrea nitrogen [Mass/Vol]38 mg/dLHigh6 - 20 mg/dLBon [facility] Glucose,Whole Bloodon 11-82-5914Ocuofac [Mass/Vol]180 mg/tIApur86-364TuxqfMount Carmel Health SystemGlucose [Mass/Vol]154 mg/aCCzkt00-645PcoerMount Carmel Health System Glucose [Mass/Vol]138 mg/bZMyqx64-715TcjvmMount Carmel Health SystemGlucose [Mass/Vol]205 mg/rFYgbz83-309OojqhMount Carmel Health SystemPO Glucose Fingerstickon 78-22-5309Usnfaun [Mass/Vol]180 mg/pVPxfl42 - 105 mg/dLBon [facility] Interpretation and review of laboratory resultsAbnormBon Secours St. Mary's HospitalGlucose [Mass/Vol]154 mg/jSGumo26 - 105 mg/dLBon [facility] HospitalInterpretation and review of laboratory resultsAbnormVirginia Hospital CenterGlucose [Mass/Vol]138 mg/yIUyvz42 - 105 mg/dLBon [facility] HospitalInterpretation and review of laboratory results AbnormalBon [facility] HospitalGlucose [Mass/Vol]205 mg/xNYttn70 - 105 mg/dLBon [facility] HospitalInterpretation and review of laboratory resultsAbnormalBallad HealthCBC with Auto Differentialon 98-66-0222Tvsdogqes (Bld) [#/Vol]0.10 10*3/[facility] HospitalInterpretation and review of laboratory resultsAbnormTwin County Regional HealthcareLymphocytes/100 WBC (Bld)1.90 %[facility] Monocytes/100 WBC (Bld)1.10 %[facility] HospitalNeutrophils/100 WBC (Bld)79 %High36 - 66 %Bon [facility] HospitalSegmented neutrophils/100 WBC (Bld)11.30 %HighBon [facility] HospitalWBC other (Bld) [#/Vol]14.4HighBon [facility] HospitalBon [facility] HospitalCBC with Diffon 29-07-1213Easqpvrvb/100 WBC (Bld)1 %Normal0-2Bon [facility] Boardman HospitalComment on above:Performed By: #### CMPX, CDP ####[facility] Pmw[address] [place], [place] [address] Lab Director: Ed Mcduffie DOEosinophils (Bld) [#/Vol]0.00 10*3/uLNormal0.0-0.4Bon [facility] on above:Performed By: #### CMPX, CDP ####[address] [address] Lab Director: Ed Mcduffie DOEosinophils/100 WBC (Bld)0 %Normal0-4Bon [facility] on above:Performed By: #### CMPX, CDP ####[address] [address] Lab Director: Ed Mcduffie DOErythrocyte distribution width (RBC) [Ratio]14.0 %Pkhqhg20.5-14.9Bon [facility] on above:Performed By: #### CMPX, CDP ####[address] [place] [address] Lab Director: Ed Mcduffie DO Hematocrit (Bld) [Volume fraction]33.0 %Kcp95-47Pvf [facility] HospitalComment on above:Performed By: #### CMPX, CDP ####[address] [address] Lab Director: Ed Mcduffie DOHemoglobin (Bld) [Mass/Vol]10.8 g/dLLow12.0-16.0Bon [facility] on above:Performed By: #### CMPX, CDP ####[facility] Ngz[address] [facility].[place], [place] [phone] Director: Ed Mcduffie DOLymphocytes/100 WBC (Bld)13 %Pen41-33Qjr [facility] on above:Performed By: #### CMPX, CDP ####[facility] Q[address] [place] [place] [address] [phone] Director: Ed Mcduffie DOMCH (RBC) [Entitic mass]31.3 yaTrimrw90-51Xgr [facility] HospitalComment on above:Performed By: #### CMPX, CDP ####[facility] Dsy[address] [facility].[place], [place] [phone] Director: Ed Mcduffie DOMCHC (RBC) [Mass/Vol]32.7 g/oGFyjros35-24Bpv [facility] Comment on above:Performed By: #### CMPX, CDP ####[facility] [address] [place] [address] [phone] Director: Ed Mcduffie DOMCV (RBC) [Entitic vol]95.8 zDIcvcmi89-621Ins [facility] Comment on above:Performed By: #### CMPX, CDP ####[facility] O[address] [place] [address] [phone] Director: Ed Mcduffie DOMonocytes/100 WBC (Bld)7 %Normal1-7Bon [facility] on above:Performed By: #### CMPX, CDP ####[facility] Ak[address] [place] [address] [phone] Director: Ed Mcduffie DOPlatelet mean volume (Bld) [Entitic vol]7.8 fLNormal6.0-12.0Bon [facility] HospitalComhenry ford hospital on above:Performed By: #### CMPX, CDP ####[facility] Vrm[address] [facility].[place], [place] [phone] Director: Ed Mcduffie DOPlatelets (Bld) [#/Vol]473 10*3/eHYtse359-905Sji [facility] on above:Performed By: #### CMPX, CDP ####[address], [place] [phone] Director: Ed Mcduffie DORBC (Bld) [#/Vol]3.45 10*6/uLLow4.0-5.2Bon [facility] on above:Performed By: #### CMPX, CDP ####[address], [place] [phone] Director: Ed Mcduffie DOAbs. Basophil0.10 k/uLNormal0.0-0.2Mer[facility]ostoria City HospitalComhenry ford hospital on above:Performed By: #### CMPX, CDP ####[address], [place] [phone] Director: Ed Mcduffie DOAbs.Neutrophil (Seg)11.30 k/uLHigh1.3-9.1Mer[facility]ost[facility] City HospitalComhenry ford hospital on above:Performed By: #### CMPX, CDP ####[facility] [address] [place] [address].[place], [place] [phone] Director: Ed Mcduffie DOLymphocytes (Bld) [#/Vol]1.90 10*3/uLNormal 1.0-4.8[facility] HospitalComhenry ford hospital on above:Performed By: #### CMPX, CDP ####[facility] Uck[address] [facility].[place], [place] [address] Lab Director: Ed Mcduffie DOMonocytes (Bld) [#/Vol]1.10 10*3/uLNormal0.1-1.3MercDiley Ridge Medical CenterComment on above:Performed By: #### CMPX, CDP ####[facility] Hji[address] [facility].[place], [place] [phone] Director: Ed Mcduffie DONeutrophil (Seg)79 % Hdcc02-24CpvkcEast Liverpool City HospitalComment on above:Performed By: #### CMPX, CDP ####[facility] Use[address] [facility].[place], [place] [phone] Director: Ed Mcduffie DOWBC (Bld) [#/Vol]14.4 10*3/uL High3.5-11.0Mount Carmel Health SystemComment on above:Performed By: #### CMPX, CDP ####[place] [facility].[place], [place] [phone] Director: Ed Mcduffie DOComp Metabolic Pr/rfx MGon 63-95-7139Jajtabm [Mass/Vol]3.9 g/dLNormal3.5-5.2MSelect Medical [facility] Comment on above:Performed By: #### CMPX, CDP ####[facility] Afs[address] [facility].[place], [place] [phone] Director: Ed Mcduffie DOAlkaline Phos60 U/GMejrqk84-526AyhcbMount Carmel Health SystemComment on above:Performed By: #### CMPX, CDP ####[facility] Fjx[address] [facility] [place] [address] Lab Director: Ed Mcduffie DOALT [Catalytic activity/Vol]18 U/UBoaulb55-47EpqqdEast Liverpool City HospitalComment on above:Performed By: #### CMPX, CDP ####[facility] Vfz6573 [place] [address] Lab Director: Ed Mcduffie DOAST [Catalytic activity/Vol]32 U/LLlilrw65-23TznamEast Liverpool City HospitalComhenry ford hospital on above:Result Comment: SPECIMEN SLIGHTLY HEMOLYZED, RESULTS MAY BE ADVERSELY AFFECTED.Performed By: #### CMPX, CDP ####[facility] Ysr5412 [place] [address] Lab Director: Ed Mcduffie DOPotassium [Moles/Vol]5.3 mmol/LNormal3.7-5.3MercDiley Ridge Medical CenterComhenry ford hospital on above:Result Comment: SPECIMEN SLIGHTLY HEMOLYZED, RESULTS MAY BE ADVERSELY AFFECTED.Performed By: #### CMPX, CDP ####[address] [address] Lab Director: Ed Mcduffie DOAnion gap [Moles/Vol]12 mmol/LNormal9-16MerEast Liverpool City HospitalComment on above:Performed By: #### CMPX, CDP ####[facility] I[address] [place] [place] [address] Lab Director: Ed Mcduffie DOBilirubin [Mass/Vol]mg/dL Normal0.0-1.2MercDiley Ridge Medical CenterComhenry ford hospital on above:Performed By: #### CMPX, CDP ####[facility] Jes[address] [place] [address] Lab Director: Ed Mcduffie DOCalcium [Mass/Vol]9.0 mg/dL Normal8.6-10.4MerEast Liverpool City HospitalComhenry ford hospital on above:Performed By: #### CMPX, CDP ####[facility] Muk[address] [place] [address] [phone] Director: Ed Mcduffie DOChloride [Moles/Vol]103 mmol/DZucuob56-618PutzwMount Carmel Health SystemComment on above:Performed By: #### CMPX, CDP ####[facility] Itj[address] [facility].[place], [place] [phone] Director: Ed Mcduffie DOCO2 [Moles/Vol]21 mmol/L Xuqtzf62-51RkihuMount Carmel Health SystemComhenry ford hospital on above:Performed By: #### CMPX, CDP ####[facility] Agt[address] [facility].[place], [place] [phone] Director: Ed Mcduffie DOCreatinine [Mass/Vol]1.1 mg/dLNormal0.7-1.2MSelect Medical OhioHealth Rehabilitation HospitalComhenry ford hospital on above:Performed By: #### CMPX, CDP ####[address], [place] [phone] Director: Ed Mcduffie DOGFR/1.73 sq M.predicted among non-blacks MDRD (S/P/Bld) [Vol rate/Area]61 mL/min/{1.73_m2}Normal>60Mount Carmel Health SystemComhenry ford hospital on above:Result Comment: These results are not intended for [...] or following therapy that affects renal tubular secretion.Performed By: #### CMPX, CDP ####[facility] Bsp[address] [facility].[place], [place] [phone] Director: Ed Mcduffie DOGlucose [Mass/Vol]144 mg/dL Bogy73-54Ftlkj [facility]ost[facility] City HospitalComhenry ford hospital on above:Performed By: #### CMPX, CDP ####[facility] Zhh2843 [place], [place] [address] Lab Director: Ed Mcduffie DOProtein [Mass/Vol]6.9 g/dL Normal6.6-8.7Mount Carmel Health SystemComhenry ford hospital on above:Performed By: #### CMPX, CDP ####[facility] Xow6348 [place], [place] [address] Lab Director: Ed Mcduffie, DOSodium [Moles/Vol]136 mmol/L Qohcxk789-025QraobEast Liverpool City HospitalComment on above:Performed By: #### CMPX, CDP ####[facility] Zoy[address]83 [place], [place] [address] Lab Director: Ed Mcduffie DOUrea nitrogen [Mass/Vol]27 mg/dLHigh6-20MerEast Liverpool City HospitalComment on above:Performed By: #### CMPX, CDP ####[facility] Zmp2623 [place], [place] [address] Lab Director: Ed Mcduffie DOComprehensive Metabolic Panel w/ Reflex to MGon 75-52-9467Fiwxrmd [Mass/Vol]3.9 g/dL3.5 - 5.2 g/dLBon Secours Ohio State East Hospitaly HealthALP [Catalytic activity/Vol]60 U/L35 - 104 U/LBon Secours Mercy HealthALT [Catalytic activity/Vol]18 U/L10 - 35 U/LBon Secours Mercy HealthAnion gap [Moles/Vol]12 mmol/L9 - 16 mmol/LBon Secours Mercy HealthAST [Catalytic activity/Vol]32 U/L10 - 35 U/LBon Secours [facility] State East Hospitaly HealthComment on above:SPECIMEN SLIGHTLY HEMOLYZED, RESULTS MAY BE ADVERSELY AFFECTED.Bilirubin [Mass/Vol]mg/dL 0.0 - 1.2 mg/dLBon Secours Mercy HealthCalcium [Mass/Vol]9.0 mg/dL8.6 - 10.4 mg/dLBon Secours Mercy HealthChloride [Moles/Vol]103 mmol/L98 - 107 mmol/LBon [facility] HospitalCO2 [Moles/Vol]21 mmol/L20 - 31 mmol/LBon [facility] HospitalCreatinine [Mass/Vol]1.1 mg/dL0.7 - 1.2 mg/dLBon [facility] HospitalJarocho Sánchez Rate61- PINFBon [facility] on above: These results are not intended [...] therapy that affects renal tubular secretion. Glucose [Mass/Vol]144 mg/nSAuku91 - 99 mg/dLBon [facility] Interpretation and review of laboratory resultsAbnormalCarilion Clinic St[facility] Potassium [Moles/Vol]5.3 mmol/L3.7 - 5.3 mmol/LBon [facility]ment on above:SPECIMEN SLIGHTLY HEMOLYZED, RESULTS MAY BE ADVERSELY AFFECTED.Protein [Mass/Vol]6.9 g/dL6.6 - 8.7 g/dLBon [facility] HospitalSodium [Moles/Vol]136 mmol/L136 - 145 mmol/LBon [facility] HospitalUrea nitrogen [Mass/Vol]27 mg/dL High6 - 20 mg/dLBon [facility] HospitalGlucose,Whole Bloodon 29-71-0714Hoxogze [Mass/Vol]150 mg/rJYcdz61-454Llanh Fostoria City HospitalGlucose [Mass/Vol]250 mg/tFSixt50-954LgawvEast Liverpool City HospitalGlucose [Mass/Vol]224 mg/nKOgpz31-851YbwyhMount Carmel Health SystemGlucose [Mass/Vol]385 mg/wXIwyq34-086RxajsMount Carmel Health SystemHemoglobin A1Con 01-86-1552Quykhfm glucose Estimated from glycated hemoglobin (Bld) [Mass/Vol]206 mg/dLBon [facility] on above:The ADA and AACC recommend providing the estimated average glucose result to permit better patient understanding of their HBA1c result. HbA1c (Bld) [Mass fraction]8.8 %High4.0 - 6.0 %[facility] Interpretation and review of laboratory resultsAbnoAvera Dells Area Health CenterGlucose [Mass/Vol]206 mg/dLNoLakeHealth Beachwood Medical CenterComhenry ford hospital on above:Result Comment: The ADA and AACC recommend providing the estimated average glucose result to permit better patient understanding of their HBA1c result.Performed By: #### CK, ECENZ #### [facility] Lab [address] [facility] [place] [address] Take Down Inspector: Ed Mcduffie DOHbA1c (Bld) [Mass fraction]8.8 %High4.0-6.0 [facility] Health SystemComhenry ford hospital on above:Performed By: #### CK, ECENZ #### [facility] Lab [address] [facility] [place] [address] Take Down Inspector: Ed Mcduffie DONo Panel Informationon 10-14-0430Hfe [facility] Glucose Fingerstickon 34-51-5043Fsltlia [Mass/Vol]150 mg/dLHigh 65 - 105 mg/dLBon [facility] HospitalInterpretation and review of laboratory resultsAbnormVirginia Hospital CenterGlucose [Mass/Vol]250 mg/zPGmtx20 - 105 mg/dLBon [facility] HospitalInterpretation and review of laboratory resultsAbnormVirginia Hospital CenterGlucose [Mass/Vol]224 mg/aBMegv41 - 105 mg/dLBon [facility] Interpretation and review of laboratory resultsAbnormBon Secours St. Mary's HospitalGlucose [Mass/Vol]385 mg/yKQafd61 - 105 mg/dLBon [facility] HospitalInterpretation and review of laboratory resultsAbnoBowdle HospitalPrealbuminon 26-17-9007Jgajcyxyxp [Mass/Vol] 27.5 mg/dL20.0 - 40.0 mg/dLBon [facility] HospitalPrealbumin [Mass/Vol]27.5 mg/vXEnglte10.0-40.0Mount Carmel Health SystemComment on above:Performed By: #### CHIRAG, ECENZ #### [facility] Lab [address] [facility] [place] [address] Take Down Inspector: Ed Mcduffie DOSedimentation Rateon 29-41-8817CLI Photometric method (Bld) [Velocity]25Ballad HealthSedimentation Rate25 mm/HrNormal0-30Mount Carmel Health SystemComment on above:Performed By: #### CK, ECENZ #### [facility] Lab [address] [facility] [place] [address] Take Down Inspector: Ed Mcduffie DOVitamin D 25 Hydroxyon 34-66-062426- hydroxyvitamin D3 [Mass/Vol]ng/mLLow30.0 - 100.0 ng/mLCarilion Clinic St. [facility]ans Hospital Comment on above: Reference Range: Vitamin D status Range Deficiency <20 ng/mL Mild Deficiency 20-30 ng/mL Sufficiency 30-100 ng/mL Toxicity >100 ng/mL Interpretation and review of laboratory resultsAbnoVCU Medical Center Vitamin D 25 OHon 41-03-2445Zasvyab D 25 OH<6.0Low30.0-100.0Mount Carmel Health SystemComment on above:Result Comment: Reference Range: Vitamin D status Range Deficiency <20 ng/mL Mild Deficiency 20-30 ng/mL Sufficiency 30-100 ng/mL Toxicity >100 ng/mLPerformed By: #### CHIRAG, ECENZ #### [facility] Lab [address] [place] [address] Take Down Inspector: Ed Mcduffie DOFLUORO FOR SURGICAL PROCEDURESon 07-23-2024 FLUORO FOR SURGICAL PROCEDURESRadiology exam is complete. No Radiologist dictation. Please follow up with ordering provider. Final resultNormalMount Carmel Health SystemGlucose,Whole Bloodon 07-23-2024 Glucose [Mass/Vol]408 mg/dLCritically jtww27-995MejjeMount Carmel Health System Comment on above:Result Comment: Critical NotedGlucose [Mass/Vol]284 mg/dLHigh 65-105Mercy Fostoria City HospitalGlucose [Mass/Vol]188 mg/qTGxon27-633Mahyc [facility]ostoria City HospitalGuidance-- during surgeryon 13-30-4613Jkdbiwcdh exam is complete. No Radiologist dictation. Please follow up with ordering provider. [facility] CONSOLIDATEDK (Potassium)on 31-44-8031Rvtadyisp [Moles/Vol]5.5 mmol/L High3.7-5.3Mercy Fostoria City HospitalComment on above:Performed By: #### K ####[facility] [address] [place] [address] [facility] Director: Ed Mcduffie DONo Panel Informationon 07-23-2024 Postoperative left leg, ankle and foot radiographs. [facility] CONSOLIDATEDEXAMINATION: THREE XRAY VIEWS OF THE LEFT ANKLE; [...] surrounds the lower leg, ankle and foot. [facility] Carlos Shirley MD - 07/23/2024 EXAMINATION: THREE XRAY VIEWS [...] Postoperative left leg, ankle and foot radiographs. [facility] HospitalNo Panel InformationOrdered By: Carlos Orta on 72-77-5623Zrz [facility] Work Phone: POC Glucose Fingerstickon 64-69-5901Riaifdo [Mass/Vol] 408 mg/dLCritically high65 - 105 mg/dLBon [facility] HospitalComment on above: Critical NotedInterpretation and review of laboratory resultsAbnormalBallad HealthGlucose [Mass/Vol]284 mg/jEElva22 - 105 mg/dLBon [facility] HospitalInterpretation and review of laboratory results AbnormalBon [facility] HospitalGlucose [Mass/Vol]188 mg/rMQnyl68 - 105 mg/dLBon [facility] HospitalInterpretation and review of laboratory resultsAbnormalBon [facility] Potassiumon 82-99-4395Drhiuxdzhlimrp and review of laboratory resultsAbBon Secours St. Mary's HospitalPotassium [Moles/Vol]5.5 mmol/LHigh3.7 - 5.3 mmol/LBon [facility] HospitalXR ANKLE LEFT (MIN 3 VIEWS)on 28-36-9508CE ANKLE LEFT (MIN 3 VIEWS)EXAMINATION: THREE XRAY VIEWS OF THE LEFT ANKLE; [...] Signed by: Carlos Orta MD 07/23/24 Final resultNoLakeHealth Beachwood Medical CenterXR Ankle - left 3 Viewson 07-23-2024 Radiology Study observation (narrative)[facility] HospitalXR FOOT LEFT (MIN 3 VIEWS)on 94-76-1502MS FOOT LEFT (MIN 3 VIEWS)EXAMINATION: THREE XRAY VIEWS OF THE LEFT ANKLE; [...] Signed by: Carlos Orta MD 07/23/24 Final resultNoLakeHealth Beachwood Medical CenterXR Foot - left 3 Viewson 07-23-2024 Radiology Study observation (narrative)[facility] HospitalXR TIBIA FIBULA LEFT (2 VIEWS)on 39-68-5478BD TIBIA FIBULA LEFT (2 VIEWS)EXAMINATION: THREE XRAY VIEWS OF THE LEFT ANKLE; [...] Signed by: Carlos Orta MD 07/23/24 Final resultNormalMount Carmel Health SystemXR Tibia and Fibula - left 2 Viewson 67-73-3471Nzvrlmwsh Study observation (narrative)[facility] [employer] [facility] HospitalBasic Metabolic Panelon 39-08-6680Scmwd gap [Moles/Vol]13 mmol/L9 - 16 mmol/LBon [facility] Medical CenterBaolab Microsystems [facility] Methodist HospitalCalcium [Mass/Vol]9.6 mg/dL8.6 - 10.4 mg/dLBon [facility] Medical CenterBaolab Microsystems [facility] Methodist HospitalChloride [Moles/Vol]101 mmol/L98 - 107 mmol/LBon [facility] Medical CenterBaolab Microsystems [facility] HospitalCO2 [Moles/Vol]21 mmol/L20 - 31 mmol/LBon [facility] Medical CenterBaolab Microsystems [facility] HospitalCreatinine [Mass/Vol] 1.1 mg/dLHigh0.50 - 0.90 mg/dLBon [facility] Medical CenterPrestoSportsEst, Glom Filt Rate64- PINFBon Summit Healthcare Regional Medical Centernkf-pharma [facility] East HospitalAsia Bio[employer] Technologies [employer] [facility] HospitalComment on above: These results are not intended [...] therapy that affects renal tubular secretion. Glucose [Mass/Vol]365 mg/eBVdmd47 - 99 mg/dLBon [facility] Medical CenterPrestoSports Interpretation and review of laboratory resultsAbnormalFort Belvoir Community Hospitalnkf-pharma [facility] [employer] Potassium [Moles/Vol]5.8 mmol/LHigh3.7 - 5.3 mmol/LBon [facility] Medical CenterPrestoSports Sodium [Moles/Vol]135 mmol/JXdq542 - 145 mmol/LBon [facility] Medical CenterPrestoSportsUrea nitrogen [Mass/Vol]30 mg/dLHigh6 - 20 mg/dLBon [facility] HospitalBasic Metabolic Profon 21-81-4048Rtzwx gap [Moles/Vol]13 mmol/L Normal9-16Mount Carmel Health SystemComment on above:Performed By: #### BMP ####[facility] [place] [address] Lab Director: Melvin Santoyo MD#### CDP ####[facility] Bbt[address] [place], [place] [phone] Director: Ed Mcduffie DOCalcium [Mass/Vol]9.6 mg/dLNormal8.6-10.4Mount Carmel Health SystemComment on above: Performed By: #### BMP ####[place] [place], [place] [phone] Director: Melvin Santoyo MD#### CDP ####[facility] Mib[address] [place], [place] [phone] Director: Ed Mcduffie DOChloride [Moles/Vol]101 mmol/RMsncou45-942QkdbvMount Carmel Health SystemComment on above:Performed By: #### BMP ####[address] [place], [place] [phone] Director: Melvin Santoyo MD#### CDP ####[address] [address] [place], [place] [address] Lab Director: Ed Mcduffie DOCO2 [Moles/Vol]21 mmol/L Wqvgxq76-55CubcrEast Liverpool City HospitalComhenry ford hospital on above:Performed By: #### BMP ####[facility] [place], [place] [phone] Director: Melvin Santoyo MD#### CDP ####[facility] [address] [place] [place] [address] [phone] Director: Ed Mcduffie DOCreatinine [Mass/Vol]1.1 mg/dLHigh0.50-0.90Mount Carmel Health SystemComhenry ford hospital on above: Performed By: #### BMP ####[address] [phone] Director: Melvin Santoyo MD#### CDP ####[address] [phone] Director: Ed Mcduffie, DOGFR/1.73 sq M.predicted among non-blacks MDRD (S/P/Bld) [Vol rate/Area]64 mL/min/{1.73_m2}Normal>60MerEast Liverpool City HospitalComment on above:Result Comment: These results are not intended for [...] or following therapy that affects renal tubular secretion.Performed By: #### BMP ####[address] [phone] Director: Melvin Santoyo MD#### CDP ####[address] [phone] Director: Ed Mcduffie, DOGlucose [Mass/Vol]365 mg/lDSdru07-15Nydvp Fostoria City HospitalComment on above:Performed By: #### BMP ####[address] [phone] Director: Melvin Santoyo MD#### CDP ####[address] [phone] Director: Ed Mcduffie DOPotassium [Moles/Vol]5.8 mmol/LHigh3.7-5.3Mercy Fostoria City HospitalComhenry ford hospital on above:Performed By: #### BMP ####[address] [address] Lab Director: Melvin Santoyo MD#### CDP ####[facility] [facility] [id number] [place], [place] [address] Lab Director: Ed Mcduffie DOSodium [Moles/Vol]135 mmol/L Fmo566-143PbcckMount Carmel Health SystemComment on above:Performed By: #### BMP ####[facility] Msimddyvbyxe4296 [place] [address] Lab Director: Melvin Santoyo MD#### CDP ####[facility] Aew[address]347 [place] [address] Lab Director: Ed Mcduffie DOUrea nitrogen [Mass/Vol]30 mg/dLHigh6-20Mount Carmel Health SystemComment on above: Performed By: #### BMP ####[facility] Qejdnqfduaph6778 [place] [address] Lab Director: Melvin Santoyo MD#### CDP ####[facility] Ptf4672 [place] [address] Lab Director: Ed Mcduffie DOCBC with Auto Differentialon [id number] (Bld) [#/Vol]0.10 10*3/uLBon [facility] HospitalBasophils/100 WBC (Bld)1 %0 - 2 %[facility] HospitalEosinophils (Bld) [#/Vol]0.40 10*3/uLBon [facility] HospitalEosinophils/100 WBC (Bld)6 %High0 - 4 %[facility] HospitalErythrocyte distribution width (RBC) [Ratio]14.2 %11.5 - 14.9 %[facility] Hematocrit (Bld) [Volume fraction]36.3 %36 - 46 %[facility] Hemoglobin (Bld) [Mass/Vol]12.2 g/dL12.0 - 16.0 g/dLBon [facility] Interpretation and review of laboratory resultsAbnormalCarilion Clinic St. [facility] Lymphocytes/100 WBC (Bld)36 %24 - 44 %[facility] HospitalLymphocytes/100 WBC (Bld)2.50 %[facility] CenterH (RBC) [Entitic mass]32.0 pg26 - 34 pg [facility] Medical CenterHC (RBC) [Mass/Vol]33.7 g/dL31 - 37 g/dLBon [facility] HospitalV (RBC) [Entitic vol]94.9 fL80 - [address] [facility] Monocytes/100 WBC (Bld)6 %1 - 7 %[facility] HospitalMonocytes/100 WBC (Bld) 0.40 %[facility] HospitalNeutrophils/100 WBC (Bld)51 %36 - 66 %[facility] HospitalPlatelet mean volume (Bld) [Entitic vol]7.7 fL6.0 - 12.[address] Alb[address] HospitalPlatelets (Bld) [#/Vol]514 10*3/uLHighCarilion Clinic St. Albans HospitalRBC (Bld) [#/Vol]3.82 10*6/uLLow4.0 - 5.2 m/uLCarilion Clinic St. [facility] Hospital Segmented neutrophils/100 WBC (Bld)3.60 %[facility] HospitalWBC other (Bld) [#/Vol]7.0Bon [facility] Memorial HospitalCBC with Diffon [id number]. Basophil0.10 k/uLNormal0.0-0.2Mer[facility]ostoria City HospitalComment on above:Performed By: #### BMP ####[facility] Qjzszqdgtcrb8664 [place] [address] Lab Director: Melvin Santoyo MD#### CDP ####[facility] [address] [place] [address] Lab Director: Ed Mcduffie DOAbs.Neutrophil (Seg)3.60 k/uLNormal1.3-9.1[facility]ost[facility] City HospitalComhenry ford hospital on above:Performed By: #### BMP ####[address] [phone] Director: Melvin Santoyo MD#### CDP ####[facility] [address] [place] [address] Lab Director: Ed Mcduffie DOBasophils/100 WBC (Bld)1 % Normal0-2[facility]ost[facility] City HospitalComhenry ford hospital on above:Performed By: #### BMP ####[address] [phone] Director: Melvin Santoyo MD#### CDP ####[address] [phone] Director: Ed Mcduffie DOEosinophils (Bld) [#/Vol]0.40 10*3/uLNormal0.0-0.4Mount Carmel Health SystemComhenry ford hospital on above:Performed By: #### BMP ####[address] [phone] Director: Melvin Santoyo MD#### CDP ####[address] [phone] Director: Ed Mcduffie DOEosinophils/100 WBC (Bld)6 %High0-4[facility] on above:Performed By: #### BMP ####[address] [phone] Director: Melvin Santoyo MD#### CDP ####[address] [address] Lab Director: Ed Mcduffie DOErythrocyte distribution width (RBC) [Ratio]14.2 %Rbkapr71.5-14.9[facility] on above:Performed By: #### BMP ####[address] [place] [address] Lab Director: Melvin Santoyo MD#### CDP ####[address] [address] Lab Director: Ed Mcduffie DOHematocrit (Bld) [Volume fraction]36.3 %Ubxuhi07-24EzmcfMount Carmel Health SystemComhenry ford hospital on above:Performed By: #### BMP ####[address] [address] Lab Director: Melvin Santoyo MD#### CDP ####[address] [address] Lab Director: Ed Mcduffie DOHemoglobin (Bld) [Mass/Vol]12.2 g/eNUfuhgj67.0-16.0[facility] Health SystemComhenry ford hospital on above:Performed By: #### BMP ####[address] [address] Lab Director: Melvin Santoyo MD#### CDP ####[address] [address] Lab Director: Ed Mcduffie DOLymphocytes (Bld) [#/Vol]2.50 10*3/uLNormal1.0-4.8[facility] Health SystemComhenry ford hospital on above:Performed By: #### BMP ####[address] [address] Lab Director: Melvin Santoyo MD#### CDP ####[address] [address] Lab Director: Ed Mcduffie DO Lymphocytes/100 WBC (Bld)36 %Buojlj44-28YokyxKettering Health [facility] Township on above:Performed By: #### BMP ####[address] [address] Lab Director: Melvin Santoyo MD#### CDP ####[address] [place] [address] Lab Director: Ed Mcduffie DOMCH (RBC) [Entitic mass]32.0 pcOvygfp48-68ZkixpMount Carmel Health SystemComment on above:Performed By: #### BMP ####[address] [phone] Director: Melvin Santoyo MD#### CDP ####[address] [address] Lab Director: Ed Mcduffie DOMCHC (RBC) [Mass/Vol]33.7 g/rWIdnzsa81-53SkhhcMount Carmel Health SystemComment on above:Performed By: #### BMP ####[address] [address] Lab Director: Melvin Santoyo MD#### CDP ####[address] [address] Lab Director: Ed Mcduffie DOMCV (RBC) [Entitic vol]94.9 nFYcxaxq41-977GjdkcMount Carmel Health SystemComment on above:Performed By: #### BMP ####[address] [phone] Director: Melvin Santoyo MD#### CDP ####[address] [address] Lab Director: Ed Mcduffie DOMonocytes (Bld) [#/Vol]0.40 10*3/uLNormal0.1-1.3Mer[facility] Fostoria City HospitalComment on above:Performed By: #### BMP ####[address], [place] [phone] Director: Melvin Santoyo MD#### CDP ####[facility] Ndw[address]41 [place], [place] [phone] Director: Ed Mcduffie DO Monocytes/100 WBC (Bld)6 %Normal1-7Mount Carmel Health SystemComment on above: Performed By: #### BMP ####[address] [phone] Director: Melvin Santoyo MD#### CDP ####[facility] Cbe[address] [place], [place] [phone] Director: Ed Mcduffie DONeutrophil (Seg)51 %Bsdqbp53-48KrnfjMount Carmel Health System Comment on above:Performed By: #### BMP ####[address] [phone] Director: Melvin Santoyo MD#### CDP ####[address] [place], [place] [address] Lab Director: Ed Mcduffie DOPlatelet mean volume (Bld) [Entitic vol]7.7 fLNormal6.0-12.0Mount Carmel Health SystemComment on above: Performed By: #### BMP ####[address] [phone] Director: Melvin Santoyo MD#### CDP ####[facility] Xmi9961 [place], [place] [phone] Director: Ed Mcduffie DOPlatelets (Bld) [#/Vol]514 10*3/jHSeup966-388ZufztMount Carmel Health SystemComment on above:Performed By: #### BMP ####[facility] [address]dmup[address] [place] [address] [phone] Director: Melvin Santoyo MD#### CDP ####[facility] Wvm[address] [facility] [place] [address] Lab Director: Ed Mcduffie DORBC (Blkatherine) [#/Vol]3.82 10*6/uLLow4.0-5.2Mer[facility]ostoria City HospitalComment on above: Performed By: #### BMP ####[facility] U[address]jbsknrnqh[address]17 [place] [address] Lab Director: Melvin Santoyo MD#### CDP ####[facility] Ayj[address] [facility] [place] [address] Lab Director: Ed Mcduffie DOWBC (Bld) [#/Vol]7.0 10*3/uLNormal3.5-11.0[facility] City HospitalComment on above:Performed By: #### BMP ####[facility] Ezcdkupjbdkf9699 [place] [address] Lab Director: Melvin Santoyo MD#### CDP ####[facility] Uwg3436 [place], [place] [address] Lab Director: Ed Mcduffie DOXR Foot - left 3 Viewson . Redemonstrated findings compatible with a Lisfranc ligament injury, with midfoot dislocation. 2. Fractures of the cuneiforms and 2nd metatarsal are better visualized on comparison CT. [facility] RIS CONSOLIDATEDEXAMINATION: THREE XRAY VIEWS OF THE LEFT FOOT [...] and forefoot. No large ankle joint effusion. [facility] Yusuf Hall MD - 07/14/2024 EXAMINATION: THREE XRAY VIEWS [...] metatarsal are better visualized on comparison CT. [facility] HospitalRadiology Study observation (narrative)[facility] HospitalXR Foot - left 3 ViewsOrdered By: Yusuf Singh on 15-54-7087Aiq [facility] Work Phone: CT Foot - left WO contraston . Dislocation of the midfoot. 2. Fractures of the medial, middle and lateral cuneiforms. 3. Fracture of the proximal aspect of the 2nd metatarsal. 4. Small osseous fragments at the dorsal aspect of the 4th and 5th metatarsals. [facility] CONSOLIDATEDEXAMINATION: CT OF THE LEFT FOOT WITHOUT CONTRAST [...] by hemorrhage. Joint: Dislocation of the midfoot [facility] Sonia Christie MD - 07/13/2024 EXAMINATION: CT OF THE [...] aspect of the 4th and 5th metatarsals. [facility] HospitalRadiology Study observation (narrative)[facility] Foot - left WO contrastOrdered By: Sonia Farrell on 15-08-8407Nxj [facility] Work Phone: Glucose, Whole Bloodon 95-90-6454Eemqlgb [Mass/Vol]101 mg/aSJcex16 - 100 mg/dLBon [facility] HospitalInterpretation and review of laboratory resultsAbnormalBon Community Memorial HospitalXR Foot - left 3 Viewson 75-47-8523Lekqtnjn of the space between the 1st and 2nd metatarsal base that may relate to a Lisfranc ligament injury and subsequent tarsometatarsal dislocation involving at least the 2nd digit. CT of the foot may be helpful in further characterization. Soft tissue swelling. [facility] CONSOLIDATEDEXAMINATION: THREE XRAY VIEWS OF THE LEFT FOOT [...] are maintained. There is soft tissue swelling. [facility] Vern Parks MD - 07/13/2024 EXAMINATION: THREE XRAY VIEWS [...] helpful in further characterization. Soft tissue swelling. [facility] HospitalRadiology Study observation (narrative)[facility] HospitalXR Foot - left 3 ViewsOrdered By: Vern Olivo on 02-27-7753Lry [facility] Work Phone: ct Sinuses WO contraston 65-06-5856Yg evidence of acute sinusitis. [facility] CONSOLIDATEDEXAMINATION: CT OF THE SINUS WITHOUT CONTRAST 07/02/2024 [...] intracranial contents demonstrate no gross acute abnormality. Efra Jensen MD - 07/03/2024 EXAMINATION: CT OF THE [...] IMPRESSION: No evidence of acute sinusitis. Bon [employer] InternationalCT Sinuses WO contrastOrdered By: Efra Sullivan on 70-91-7057Quu [employer] Work Phone: Basic Metabolic Panelon 63-36-2692Aaost gap [Moles/Vol]13 mmol/L9 - 16 mmol/LBon [employer]ters[employer] InternationalCalcium [Mass/Vol]9.7 mg/dL8.6 - 10.4 mg/dLBon [facility] HospitalChloride [Moles/Vol]101 mmol/L98 - 107 mmol/LBon [facility] HospitalCO2 [Moles/Vol]23 mmol/L20 - 31 mmol/LBon [facility] HospitalCreatinine [Mass/Vol]1.4 mg/dLHigh0.50 - 0.90 mg/dLBon [facility] HospitalEst, Glom Filt Pnir14Uhs- PINFBon [facility] Comment on above: These results are [...] therapy that affects renal tubular secretion. Glucose [Mass/Vol]315 mg/fUJfta49 - 99 mg/dLBon [facility] Interpretation and review of laboratory resultsAbnormalCarilion Clinic St. [facility] Hospital Potassium [Moles/Vol]5.6 mmol/LHigh3.7 - 5.3 mmol/LBon [facility] Sodium [Moles/Vol]137 mmol/L136 - 145 mmol/LBon [facility] HospitalUrea nitrogen [Mass/Vol]29 mg/dLHigh6 - 20 mg/dLBon [facility] HospitalUrea nitrogen/Creatinine [Mass ratio]21 mg/mgHigh9 - 20Bon [facility] Memorial HospitalCT Sinuses WO contraston 37-70-3471Ppylmmyrv Study observation (narrative)Bon [facility] HospitalTS with Reflexon [id number] Qn0.62 m[IU]/LBON [facility]OSPITALXR Chest 2 Viewson 01-03-3073Bg radiographic evidence of acute cardiopulmonary disease. MHPN RIS CONSOLIDATEDEXAMINATION: TWO XRAY VIEWS OF THE CHEST 12/07/2023 12:58 pm COMPARISON: None. HISTORY: ORDERING SYSTEM PROVIDED HISTORY: Lower leg edema FINDINGS: The lungs appear clear. The heart and mediastinal structures are unremarkable. Bony thorax appears normal. Visualized upper abdomen is unremarkable. [facility] RIS CONSOLIDATEDShapir, Jesus, MD - 12/07/2023 EXAMINATION: TWO XRAY VIEWS OF THE CHEST 12/07/2023 12:58 pm COMPARISON: None. HISTORY: ORDERING SYSTEM PROVIDED HISTORY: Lower leg edema FINDINGS: The lungs appear clear. The heart and mediastinal structures are unremarkable. Bony thorax appears normal. Visualized upper abdomen is unremarkable. IMPRESSION: No radiographic evidence of acute cardiopulmonary disease. [facility] DANVILLERadiology Study observation (narrative)[facility] DANVILLEXR Chest 2 ViewsOrdered By: Jesus Otero on [id number] [facility] Work Phone: cbc with Auto Differentialon [id number] (Bld) [#/Vol]0.00 10*3/uLBON [facility] SYSTEMBasophils/100 WBC (Bld)0 %0 - 2 %S[facility] - DANVILLEEosinophils (Bld) [#/Vol]0.00 10*3/uLBON [facility]ALTH SYSTEMEosinophils/100 WBC (Bld)0 %Low1 - 4 %S[facility]ALTH - DANVILLEErythrocyte distribution width (RBC) [Ratio]13.1 %11.8 - 14.4 %[facility] Hematocrit (Bld) [Volume fraction]44.3 %36.3 - 47.1 %[facility] Hemoglobin (Bld) [Mass/Vol]14.6 g/dL11.9 - 15.1 g/dLBON [facility] Immature granulocytes (Bld) [#/Vol]0.25 10*3/uLBON [facility]ALTH SYSTEMImmature granulocytes/100 WBC (Bld)2 %Qlbd3BUZSOVAH HEALTH - DANVILLEInterpretation and review of laboratory resultsAbnormalBON MOUNT CARMEL HEALTH SYSTEMLymphocytes/100 WBC (Bld)20 %Low24 - 43 %S[facility] - DANVILLELymphocytes/100 WBC (Bld)2.46 %[facility]ICAL CENTERH (RBC) [Entitic mass]31.3 pg25.2 - 33.5 pgBON SECOURS DEPAUL MEDICAL CENTERHC (RBC) [Mass/Vol]33.0 g/dL28.4 - 34.8 g/dLBON MOUNT CARMEL HEALTH SYSTEMMCV (RBC) [Entitic vol]95.1 fL82.6 - 102.9 fLSOVAH HEALTH - DANVILLE Monocytes/100 WBC (Bld)6 %3 - 12 %S[facility] DANVILLEMonocytes/100 WBC (Bld)0.74 %SOVA[facility] HEALTH - DANVILLEMorphology Alejo (Bld) [Interp]ANISOCYTOSIS PRESENTSOVAH HEALTH - DANVILLENeutrophils/100 WBC (Bld)72 %High36 - 65 %SOVAH HEALTH - DANVILLENucleated RBC/100 WBC (Bld) [Ratio]0.0 %0.0 per 100 WBCSOVAH HEALTH - DANVILLEPlatelet mean volume (Bld) [Entitic vol]8.8 fL8.1 - 13.5 fL SOVAH HEALTH - DANVILLEPlatelets (Bld) [#/Vol]438 10*3/uLBON MOUNT CAR[facility] HEALTH SYSTEMRBC (Bld) [#/Vol]4.66 10*6/uL3.95 - 5.11 m/uLSOVAH HEALTH - DANVILLE Segmented neutrophils/100 WBC (Bld)8.85 %HighSOVAH HEALTH - DANVILLEWBC other (Bld) [#/Vol]12.3HighBON SECOURS HEALTH SYSTEMCT Head WO Contraston [id number] acute intracranial abnormality. MHPN RIS CONSOLIDATEDEXAMINATION: CT OF THE HEAD WITHOUT CONTRAST 06/16/2023 [...] is intact. Extracranial soft tissues are unremarkable. [facility] Brandon Valencia MD - 06/16/2023 EXAMINATION: CT OF THE [...] are unremarkable. IMPRESSION: No acute intracranial abnormality. [facility] CatglobeCLEVELAND CLINIC HILLCREST HOSPITALRadiology Study observation (narrative)[facility] MEDICAL CENTERSmart Energy FOSTORIA CITY HOSPITALCT Head WO ContrastOrdered By: Brandon Morfin on 55-11-7275REM [employer] Work Phone: Comprehensive Metabolic Panelon 15-10-5413Mifxfwl [Mass/Vol]4.5 g/dL3.5 - 5.2 g/dLBON UniPayAlbumin/Globulin [Mass ratio]1.4 {ratio}1.0 - 2.5BON UniPayALP [Catalytic activity/Vol]59 U/L35 - 104 U/LBON [facility] CENTERSprinklrALT [Catalytic activity/Vol]30 U/L5 - 33 U/LBON [facility] CENTERSprinklrAnion gap [Moles/Vol]10 mmol/L9 - 17 mmol/LBON [facility]ALTH SYSTEMAST [Catalytic activity/Vol]33 U/LHighNINF - 32 U/LBON [facility]OURS [facility] HOSPITALBilirubin [Mass/Vol]0.3 mg/dL0.3 - 1.2 mg/dLBON SECTHE BELLEVUE HOSPITALCalcium [Mass/Vol]9.9 mg/dL8.6 - 10.4 mg/dLBON [facility] Chloride [Moles/Vol]99 mmol/L98 - 107 mmol/LBON [facility]ALTH SYSTEMCO2 [Moles/Vol]26 mmol/L20 - 31 mmol/LBON [facility]ALTH SYSTEMCreatinine [Mass/Vol] 1.0 mg/dLHigh0.5 - 0.9 mg/dLBON [facility] Immerse LearningGFR/1.73 sq M.predicted MDRD (S/P/Bld) [Vol rate/Area]- PINFBON MOUNT CARMEL HEALTH SYSTEMComment on above: These results are not intended [...] therapy that affects renal tubular secretion. Glucose [Mass/Vol]109 mg/eMBlwh79 - 99 mg/dLBON [facility] [employer] Interpretation and review of laboratory resultsAbnormalSOVAH HEALTH - [facility]IL[facility] Potassium [Moles/Vol]5.0 mmol/L3.7 - 5.3 mmol/LBON [facility] SYSTEMProtein [Mass/Vol]7.8 g/dL6.4 - 8.3 g/dLBON MOUNT CAR[facility]EL HEALTH SYSTEMSodium [Moles/Vol]135 mmol/L135 - 144 mmol/LBON [facility] Immerse LearningUrea nitrogen [Mass/Vol]29 mg/dL High6 - 20 mg/dLBON MOUNT CARMEL HEALTH SYSTEMUrea nitrogen/Creatinine [Mass ratio]29 mg/mgHigh9 - 20BON [facility]ALTH SYSTEMBON SECTHE BELLEVUE HOSPITALTroponinon [id number] and review of laboratory resultsAbnormalSOVAH HEALTH - DANVILLETroponin I.cardiac High sensitivity method [Mass/Vol]15 ng/LHigh0 - 14 ng/LBON [facility] SYSTEMComment on above:High Sensitivity Troponin values cannot be compared with other Troponin methodologies.[facility]ENTERSprinklrXR CHEST PORTABLEon 04-44-1441Ured prominence of pulmonary vasculature and interstitium related to technique versus developing pulmonary edema. [facility] CONSOLIDATEDEXAMINATION: ONE XRAY VIEW OF THE CHEST 06/16/2023 6:31 pm COMPARISON: June 10, 2023 and additional prior exams. HISTORY: ORDERING SYSTEM PROVIDED HISTORY: Syncope TECHNOLOGIST PROVIDED HISTORY: Syncope FINDINGS: Mild increased prominence of the pulmonary vasculature and interstitium. No pleural effusion or pneumothorax identified. Cardiac and mediastinal silhouettes are within normal limits. No acute osseous abnormality identified. [facility] Jason Leal MD - 06/16/2023 EXAMINATION: ONE XRAY VIEW [...] related to technique versus developing pulmonary edema. S[facility] DANVILLERadiology Study observation (narrative)[facility]ENTERSprinklr CHEST PORTABLEOrdered By: Jason Long on 06-53-5466TQN [facility] [employer] Work Phone: Basic Metabolic Panel w/ Reflex to MGon 06-14-2023 Anion gap [Moles/Vol]11 mmol/L9 - 17 mmol/LBON [facility] Immerse LearningCalcium [Mass/Vol]9.9 mg/dL8.6 - 10.4 mg/dLBON COLLEGE [facility]OSPITAL COSTA MESANutmeg EducationChloride [Moles/Vol] 98 mmol/L98 - 107 mmol/LBON [facility] MESAMobOz Technology srl FOSTOR[facility] CITY HOSPITALCO2 [Moles/Vol]26 mmol/L20 - 31 mmol/LBON [facility] MESANutmeg EducationCreatinine [Mass/Vol]0.9 mg/dL0.5 - 0.9 mg/dLBON COL[facility] COSTA MESANutmeg EducationGFR/1.73 sq M.predicted MDRD (S/P/Bld) [Vol rate/Area]- PINF SOVA[facility]ALTH - DANVILLEComment on above: These results are not intended [...] therapy that affects renal tubular secretion. Glucose [Mass/Vol]186 mg/eUMltk38 - 99 mg/dLBON [facility] Interpretation and review of laboratory resultsAbnormalBON [facility] Potassium [Moles/Vol]4.4 mmol/L3.7 - 5.3 mmol/LBON [facility]CTHE BELLEVUE HOSPITALSodium [Moles/Vol]135 mmol/L135 - 144 mmol/LBON [facility]ALTH SYSTEMUrea nitrogen [Mass/Vol]30 mg/dLHigh6 - 20 mg/dLBON M[facility] HEALTH SYSTEMUrea nitrogen/Creatinine [Mass ratio]33 mg/mgHigh9 - 20BON [facility] HOSPITALBON M[facility]ALTH SYSTEMCBC auto differentialon [id number] (Bld) [#/Vol] 0.03 10*3/uLBON [facility] HOSPITALY FOST[facility] CITY HOSPITALBasophils/100 WBC (Bld)0 %0 - 2 %[facility] HOSPITALY FOSTOR[facility] CITY HOSPITALEosinophils (Bld) [#/Vol]BON [facility] MERCY HEALTHEosinophils/100 WBC (Bld)0 %Low1 - 4 %D[facility] SECOURS MERCY FOSTORIA CITY HOSPITALErythrocyte distribution width (RBC) [Ratio]13.4 %11.8 - 14.4 %B[facility] MERCY HEALTHHematocrit (Bld) [Volume fraction]35.7 %Low36.3 - 47.1 %[facility] HOSPITALY HEALTHHemoglobin (Bld) [Mass/Vol]11.5 g/dLLow11.9 - 15.1 g/dLBON SECWALDO HOSPITALY F[facility] CITY HOSPITALImmature granulocytes (Bld) [#/Vol]0.32 10*3/uLHighBON SECOURS [facility] HOSPITALY HEALTHImmature granulocytes/100 WBC (Bld)3 %Jbjq8IKWSOVAH HEALTH - DANVILLEInterpretation and review of laboratory resultsAbnormalBON [facility] HEALTHLymphocytes/100 WBC (Bld)16 %Low24 - 43 %BON SECTHE BELLEVUE HOSPITALLymphocytes/100 WBC (Bld)1.82 %BON [facility]OREY HOSPITALH (RBC) [Entitic mass]31.1 pg25.2 - 33.5 pgBON COREY HOSPITALHC (RBC) [Mass/Vol]32.2 g/dL28.4 - 34.8 g/dLBON SECCLEVELAND CLINIC AKRON GENERALV (RBC) [Entitic vol]96.5 fL82.6 - 102.9 fLSOVAH HEALTH - DANVILLE Monocytes/100 WBC (Bld)5 %3 - 12 %S[facility] DANVILLEMonocytes/100 WBC (Bld)0.52 %SOVAH HEALTH - DANVILLENeutrophils/100 WBC (Bld)77 %High36 - 65 %SOVA[facility] HEALTH - DANVILLENucleated RBC/100 WBC (Bld) [Ratio]0.0 %0.0 per 100 WBCBON MOUNT CARMEL HEALTH SYSTEMPlatelet mean volume (Bld) [Entitic vol]9.2 fL8.1 - 13.5 fL [facility] HEALTHPlatelets (Bld) [#/Vol]355 10*3/uLBON MOUNT CARMEL HEALTH SYSTEMRBC (Bld) [#/Vol]3.70 10*6/uLLow3.95 - 5.11 m/uLSOVAH HEALTH - DANVILLE Segmented neutrophils/100 WBC (Bld)8.74 %HighSOVAH HEALTH - DANVILLEWBC other (Bld) [#/Vol]11.4HighBON SPEARFISH REGIONAL HOSPITALGlucose, Whole Bloodon 11-83-0342Gmtiswk [Mass/Vol]228 mg/vZBjsv17 - 100 mg/dLBON [facility] HEALTHInterpretation and review of laboratory resultsAbnormalBON SPEARFISH REGIONAL HOSPITALGlucose [Mass/Vol]167 mg/uQRtcp28 - 100 mg/dLBON [facility] HEALTHInterpretation and review of laboratory results AbnormalBON SPEARFISH REGIONAL HOSPITALBasic Metabolic Panel w/ Reflex to MGon [id number] gap [Moles/Vol]12 mmol/L9 - 17 mmol/LBON [facility]ALTH SYSTEMCalcium [Mass/Vol]9.7 mg/dL8.6 - 10.4 mg/dLBON [facility] Chloride [Moles/Vol]103 mmol/L98 - 107 mmol/LBON [facility]ALTH SYSTEMCO2 [Moles/Vol]23 mmol/L20 - 31 mmol/LBON [facility] SYSTEMCreatinine [Mass/Vol] 0.7 mg/dL0.5 - 0.9 mg/dLBON [facility] HEALTH SYSTEMGFR/1.73 sq M.predicted MDRD (S/P/Bld) [Vol rate/Area]- PINFBON MOUNT CARMEL HEALTH SYSTEMComment on above: These results are not intended [...] therapy that affects renal tubular secretion. Glucose [Mass/Vol]199 mg/vFXqei67 - 99 mg/dLBON [facility] Interpretation and review of laboratory resultsAbnormalSOVAH [facility] Potassium [Moles/Vol]4.3 mmol/L3.7 - 5.3 mmol/LBON [facility]ALTH SYSTEMSodium [Moles/Vol]138 mmol/L135 - 144 mmol/LBON MOUNT [facility]ALTH SYSTEMUrea nitrogen [Mass/Vol]28 mg/dLHigh6 - 20 mg/dLBON MOUNT CAR[facility]EL [facility]ALTH SYSTEMUrea nitrogen/Creatinine [Mass ratio]40 mg/mgHigh9 - 20BON [facility]ITALCBC auto differentialon [id number] (Bld) [#/Vol][facility] SYSTEMBasophils/100 WBC (Bld)0 %0 - 2 %SOVAH HEALTH - [place] Eosinophils (Bld) [#/Vol][facility] HEALTH SYSTEMEosinophils/100 WBC (Bld)0 %Low 1 - 4 %[facility]Y HEALTHErythrocyte distribution width (RBC) [Ratio]13.6 %11.8 - 14.4 %[facility]Y HEALTHHematocrit (Bld) [Volume fraction]38.0 % 36.3 - 47.1 %[facility] HEALTHHemoglobin (Bld) [Mass/Vol]12.2 g/dL11.9 - 15.1 g/dLB[facility] HEALTHImmature granulocytes (Bld) [#/Vol]0.24 10*3/uL [facility] HEALTHImmature granulocytes/100 WBC (Bld)2 %Bpux5NPC [facility]Y HEALTHInterpretation and review of laboratory resultsAbnormalBON [facility]Y HEALTHLymphocytes/100 WBC (Bld)14 %Low24 - 43 %[facility] HEALTH Lymphocytes/100 WBC (Bld)1.87 %[facility]OSPITALMCH (RBC) [Entitic mass] 31.2 pg25.2 - 33.[address] HOSPITALHC (RBC) [Mass/Vol]32.1 g/dL28.4 - 34.8 g/dLBON [facility]OSPITALY [facility]OSPITALMCV (RBC) [Entitic vol]97.2 fL82.6 - 102.9 fL [facility] HEALTHMonocytes/100 WBC (Bld)5 %3 - 12 %[facility]Y HEALTHMonocytes/100 WBC (Bld)0.60 %[facility] HEALTHNeutrophils/100 WBC (Bld)80 %High36 - 65 %[facility]OSPITALNucleated RBC/100 WBC (Bld) [Ratio]0.0 %0.0 per 100 WBCBON [facility]ITALY HEALTHPlatelet mean volume (Bld) [Entitic vol]9.5 fL8.1 - 13.5 fLBON SECOURS MERCY HEALTHPlatelets (Bld) [#/Vol] 226 10*3/uLBON [facility]Y HEALTHRBC (Bld) [#/Vol]3.91 10*6/uLLow3.95 - 5.11 m/uLBON [facility]ITALY HEALTHSegmented neutrophils/100 WBC (Bld)10.70 %HighBON SECOURS [facility] HOSPITALY [facility] CITY HOSPITALWBC other (Bld) [#/Vol]13.4HighBON SECOURS HEALTH SYSTEMEKG Rhythm Stripon 68-86-6663IWLGYGUNDERSEN BOSCOBEL AREA [facility]INICS LABSOVAH HEALTH - DANVILLEGlucose, Whole Bloodon 58-96-2230Gufrosg [Mass/Vol]207 mg/vHApim75 - 100 mg/dLBON [facility]ALTH SYSTEMInterpretation and review of laboratory resultsAbnormRiverside Tappahannock HospitalGlucose [Mass/Vol]217 mg/sBRucn72 - 100 mg/dLBON [facility] SYSTEMInterpretation and review of laboratory resultsAbnormRiverside Tappahannock HospitalGlucose [Mass/Vol]197 mg/dYNgja18 - 100 mg/dLBON [facility] SYSTEMInterpretation and review of laboratory results AbnormalBON SECOURS HEALTH SYSTEMGlucose [Mass/Vol]180 mg/bZTgso48 - 100 mg/dLBON [facility] SYSTEMInterpretation and review of laboratory resultsAbnormRiverside Tappahannock HospitalBasic Metabolic Panel w/ Reflex to MGon 88-28-5501Rvbyt gap [Moles/Vol]12 mmol/LBON [facility] HEALTHCalcium [Mass/Vol]9.3 mg/dL8.6 - 10.4 mg/dLBON [facility] HEALTHChloride [Moles/Vol]99 mmol/L98 - 107 mmol/LBON [facility] HEALTHCO2 [Moles/Vol]24 mmol/L20 - 31 mmol/LBON [facility] HEALTHCreatinine [Mass/Vol] 0.8 mg/dL0.5 - 0.9 mg/dLBON [facility] HEALTHGFR/1.73 sq M.predicted MDRD (S/P/Bld) [Vol rate/Area]- PINFBON MOUNT CARMEL HEALTH SYSTEMComment on above: These results are not intended [...] therapy that affects renal tubular secretion. Glucose [Mass/Vol]295 mg/pUVuun52 - 99 mg/dLBON [facility] Interpretation and review of laboratory resultsAbnormalSOVAH HEALTH - DANVILLE Potassium [Moles/Vol]4.7 mmol/L3.7 - 5.3 mmol/LBON [facility]ALTH SYSTEMSodium [Moles/Vol]135 mmol/L135 - 144 mmol/LBON [facility]ALTH SYSTEMUrea nitrogen [Mass/Vol]23 mg/dLHigh6 - 20 mg/dLBON [facility]ALTH SYSTEMUrea nitrogen/Creatinine [Mass ratio]29 mg/mgHigh9 - 20BON [facility] HOSPITALCBC auto differentialon 39-51-7551Torhjgunt (Bld) [#/Vol] 0.04 10*3/uLBON [facility] SYSTEMBasophils/100 WBC (Bld)0 %0 - 2 %SOVAH HEALTH - DANVILLEEosinophils (Bld) [#/Vol]BON [facility]ENTEROURS SHELTERING ARMS HOSPITALEosinophils/100 WBC (Bld)0 %Low1 - 4 %SOVA[facility]ALTH - DANVILLEErythrocyte distribution width (RBC) [Ratio]13.7 %11.8 - 14.4 %SOVA[facility]ALTH - DANVILLEHematocrit (Bld) [Volume fraction]34.5 %Low36.3 - 47.1 %SOVA[facility]ALTH - DANVILLEHemoglobin (Bld) [Mass/Vol]11.2 g/dLLow11.9 - 15.1 g/dLBON [facility]ALTH SYSTEMImmature granulocytes (Bld) [#/Vol]0.18 10*3/uLBON [facility] Hospitalmature granulocytes/100 WBC (Bld)1 %Nmju9BEB [facility]ALTH SYSTEMInterpretation and review of laboratory resultsAbnormalBON [facility]ALTH SYSTEMLymphocytes/100 WBC (Bld)10 %Low24 - 43 %SOVA[facility] - DANVILLELymphocytes/100 WBC (Bld)1.59 %SOVAH HEALTH - DANVILLEMCH (RBC) [Entitic mass]31.6 pg25.2 - 33.5 pgBON MOUNT CARMEL HEALTH SYSTEMMCHC (RBC) [Mass/Vol]32.5 g/dL28.4 - 34.8 g/dLBON [facility] HEALTH SYSTEMMCV (RBC) [Entitic vol]97.5 fL82.6 - 102.9 fLSOVAH HEALTH - DANVILLE Monocytes/100 WBC (Bld)2 %Low3 - 12 %S[facility] DANVILLEMonocytes/100 WBC (Bld)0.30 %SOVAH HEALTH - DANVILLENeutrophils/100 WBC (Bld)87 %High36 - 65 %SOVAH HEALTH - DANVILLENucleated RBC/100 WBC (Bld) [Ratio]0.0 %0.0 per 100 WBCSOVAH HEALTH - DANVILLEPlatelet mean volume (Bld) [Entitic vol]10.6 fL8.1 - 13.5 fL [facility] HEALTHPlatelets (Bld) [#/Vol]367 10*3/uLBON MOUNT CARMEL HEALTH SYSTEMRBC (Bld) [#/Vol]3.54 10*6/uLLow3.95 - 5.11 m/uLSOVAH HEALTH - DANVILLE Segmented neutrophils/100 WBC (Bld)14.32 %HighSOVAH HEALTH - DANVILLEWBC other (Bld) [#/Vol]16.4HighBON SECOURS HEALTH SYSTEMEKG Rhythm Stripon 81-11-6757JXXDZSHELTERING ARMS HOSPITAL LABSOVAH HEALTH - DANVILLEGlucose, Whole Bloodon 24-03-1940Ngtpsbq [Mass/Vol]175 mg/vSZmgv15 - 100 mg/dLB[facility] Interpretation and review of laboratory resultsAbnormalLIFEPOINT HOSPITALSGlucose [Mass/Vol]567 mg/dLCritically high74 - 100 mg/dL SOVA[facility] - DANVILLEInterpretation and review of laboratory resultsAbnormal [facility] SYSTEMGlucose [Mass/Vol]199 mg/dLHigh 74 - 100 mg/dLBON [facility] SYSTEMInterpretation and review of laboratory resultsAbnormalBON SPEARFISH REGIONAL HOSPITALGlucose [Mass/Vol]249 mg/oIIkkx12 - 100 mg/dLBON [facility] SYSTEMInterpretation and review of laboratory resultsAbnormRiverside Tappahannock HospitalGlucose [Mass/Vol]283 mg/rVDdeo28 - 100 mg/dLB[facility] Interpretation and review of laboratory resultsAbnormVCU Medical CenterBasic Metabolic Panel w/ Reflex to MGon 30-12-7485Focod gap [Moles/Vol]10 mmol/L9 - 17 mmol/LBON [facility]ALTH SYSTEMCalcium [Mass/Vol] 9.1 mg/dL8.6 - 10.4 mg/dLBON [facility]ALTH SYSTEMChloride [Moles/Vol]105 mmol/L 98 - 107 mmol/LBON [facility]ALTH SYSTEMCO2 [Moles/Vol]26 mmol/L20 - 31 mmol/LBON [facility] SYSTEMCreatinine [Mass/Vol]1.0 mg/dLHigh0.5 - 0.9 mg/dLBON [facility]ALTH SYSTEMGFR/1.73 sq M.predicted MDRD (S/P/Bld) [Vol rate/Area]- [facility]ENTERComment on above: These results are not intended [...] therapy that affects renal tubular secretion. Glucose [Mass/Vol]153 mg/dGXxlj98 - 99 mg/dLBON [facility] Interpretation and review of laboratory resultsAbnoNaval Medical Center Portsmouth Potassium [Moles/Vol]4.7 mmol/L3.7 - 5.3 mmol/LBON [facility]ALTH SYSTEMSodium [Moles/Vol]141 mmol/L135 - 144 mmol/LBON [facility]ALTH SYSTEMUrea nitrogen [Mass/Vol]13 mg/dL6 - 20 mg/dLBON [facility]ALTH SYSTEMUrea nitrogen/Creatinine [Mass ratio]13 mg/mg9 - 20BON [facility]IONAL HOSPITALBrain Natriuretic Peptideon 52-14-1806Gznwjojyoyv peptide B (Bld) [Mass/Vol]74 pg/mL NINF - 300 pg/mLSOVAH HEALTH - DANVILLEComment on above: An age-independent cutoff point of 300 pg/ml has a 98% negative predictive value excluding acute heart failure. SOVA[facility]ALTH - DANVILLECBC auto differentialon 77-84-2042Miuvhgnrq (Bld) [#/Vol]0.06 10*3/uLBON [facility] SYSTEMBasophils/100 WBC (Bld)1 %0 - 2 %SOVAH [facility]ALTH - DANVILLEEosinophils (Bld) [#/Vol]0.34 10*3/uLBON [facility]ALTH SYSTEMEosinophils/100 WBC (Bld)3 %1 - 4 %SOVAH [facility]ALTH - DANVILLEErythrocyte distribution width (RBC) [Ratio]14.0 %11.8 - 14.4 %S[facility] Hematocrit (Bld) [Volume fraction]37.6 %36.3 - 47.1 %S[facility] Hemoglobin (Bld) [Mass/Vol]12.0 g/dL11.9 - 15.1 g/dLBON [facility] Immature granulocytes (Bld) [#/Vol]0.12 10*3/uLBON [facility]ALTH SYSTEMImmature granulocytes/100 WBC (Bld)1 %Tdfl4ZHJSOVAH HEALTH - DANVILLEInterpretation and review of laboratory resultsAbnormalSOVAH HEALTH - DANVILLELymphocytes/100 WBC (Bld)20 %Low24 - 43 %SOVA[facility] - DANVILLELymphocytes/100 WBC (Bld)2.45 %[facility]ENTERH (RBC) [Entitic mass]31.6 pg25.2 - 33.5 pgBON SECOURS DEPAUL MEDICAL CENTERHC (RBC) [Mass/Vol]31.9 g/dL28.4 - 34.8 g/dLBON COREY HOSPITALV (RBC) [Entitic vol]98.9 fL82.6 - 102.9 fLSOVAH HEALTH - DANVILLE Monocytes/100 WBC (Bld)2 %Low3 - 12 %[facility] HEALTHMonocytes/100 WBC (Bld)0.30 %[facility]Y HEALTHNeutrophils/100 WBC (Bld)73 %High36 - 65 %[facility]Y HEALTHNucleated RBC/100 WBC (Bld) [Ratio]0.0 %0.0 per 100 WBCBON SECOURS [facility]ITALY HEALTHPlatelet mean volume (Bld) [Entitic vol]9.4 fL8.1 - 13.5 fL [facility]ITALY HEALTHPlatelets (Bld) [#/Vol]297 10*3/uLBON [facility]ITALY HEALTHRBC (Bld) [#/Vol]3.80 10*6/uLLow3.95 - 5.11 m/uLBON [facility] HEALTH Segmented neutrophils/100 WBC (Bld)9.30 %HighDIGNITY HEALTH [facility]ZONA GENERAL [facility]ITALY HEALTHWBC other (Bld) [#/Vol]12.6HighMILFORD REGIONAL MEDICAL CENTEROURS [facility] HEALTHB[facility] HEALTHEKG 12 Lead on 44-86-9178Cubttw Bwvi88ZOPCVU [facility]RS [facility]CY HEALTHP Vjwf23phmisbpNPA [facility]Y HEALTHP-R Zgdmegrb710 msDIGNITY [facility] SECOURS MERCY HEALTHQ-T Jfbglkgm787 msDIGNITY [facility]ITALY HEALTHQRS Lyewnrga55 msDIGNITY [facility]ITALY HEALTHQTc Calculation (Bazett)449 msDIGNITY [facility]ITALY HEALTHR Ffii87bfapntpMTS [facility]Y HEALTHT Bqxz09chlltbiTWI [facility] HEALTHVentricular Mbal42EOTVJT [facility]ITALY HEALTHNormal sinus rhythm Normal ECG When compared with ECG of 06-AUG-2022 17:11, No significant change was found Confirmed by Nathan Ardon MD ([id number]) on 06/11/2023 4:31:21 [facility]RES[facility] Nathan Ardon MD - 06/11/2023 Normal sinus rhythm Normal ECG When compared with ECG of 06-AUG-2022 17:11, No significant change was found Confirmed by Nathan Ardon MD ([id number]) on 06/11/2023 4:31:21 PM [facility] HEALTHEKG Rhythm Stripon 06-11-2023 [facility] LABGOOD [facility] LABSOVAH HEALTH - DANVILLEGlucose, Whole Bloodon 38-76-3943Cfbrlvz [Mass/Vol]407 mg/yOFxpf22 - 100 mg/dLBON [facility] SYSTEMInterpretation and review of laboratory resultsAbnormRiverside Tappahannock HospitalGlucose [Mass/Vol]473 mg/gSQpkp08 - 100 mg/dLB[facility] Interpretation and review of laboratory resultsAbnormVCU Medical CenterGlucose [Mass/Vol]336 mg/lKOwsi25 - 100 mg/dLBON [facility] SYSTEMInterpretation and review of laboratory resultsAbnormRiverside Tappahannock HospitalGlucose [Mass/Vol]168 mg/zZPswz09 - 100 mg/dLBON [facility] SYSTEMInterpretation and review of laboratory results AbnormalBON SECOURS HEALTH SYSTEMLactate, Sepsison 05-40-9292Mahszzz (BldV) [Moles/Vol]1.7 mmol/L0.5 - 1.9 mmol/LBON SPEARFISH REGIONAL HOSPITALLactate (BldV) [Moles/Vol]1.7 mmol/L0.5 - 1.9 mmol/LBON [facility]IONAL HOSPITALProcalcitoninon 06-11-2023 Procalcitonin [Mass/Vol]0.07 ng/mLNINF - 0.09 ng/mLSOVAH HEALTH - DANVILLE Comment on above: Suspected Sepsis: <0.50 ng/mL Low likelihood of sepsis. 0.50-2.00 ng/mL Increased likelihood of sepsis. Antibiotics encouraged. >2.00 ng/mL High risk of sepsis/shock. Antibiotics strongly encouraged. Suspected Lower Resp Tract Infections: <0.24 ng/mL Low likelihood of bacterial infection. >0.24 ng/mL Increased likelihood of bacterial infection. Antibiotics encouraged. With successful antibiotic therapy, PCT levels should decrease rapidly. (Half- life of 24 to 36 hours.) Procalcitonin values from samples collected within the first 6 hours of systemic infection may still be low. Retesting may be indicated. Values from day 1 and day 4 can be entered into the Change in Procalcitonin Calculator (www.zfaeyc-xma-xvkouyaeog.com) to determine the patient's Mortality Risk Prognosis In healthy neonates, plasma Procalcitonin (PCT) concentrations increase gradually after , reaching peak values at about 24 hours of age then decrease to normal values below 0.5 ng/mL by 48-72 hours of age. SOVAH HEALTH - DANVILLETroponinon 35-57-9342Tjgfyngbvybnzn and review of laboratory resultsAbnormalBON MOUNT CAR[facility]EL HEALTH SYSTEMTroponin I.cardiac High sensitivity method [Mass/Vol]26 ng/LHigh0 - 14 ng/LBON [facility] Comment on above:High Sensitivity Troponin values cannot be compared with other Troponin methodologies.[facility]OSPITALC with Auto Differentialon 31-57-0647Eikigasaa (Bld) [#/Vol]0.07 10*3/uLBON [facility] Basophils/100 WBC (Bld)1 %0 - 2 %SOVAH [facility]ALTH - DANVILLEEosinophils (Bld) [#/Vol]0.40 10*3/uLBON [facility]OUNT [facility]ALTH SYSTEMEosinophils/100 WBC (Bld)5 %High1 - 4 %SOVA[facility]ALTH - DANVILLEErythrocyte distribution width (RBC) [Ratio]14.0 %11.8 - 14.4 %SOVA[facility]ALTH - DANVILLEHematocrit (Bld) [Volume fraction]41.8 %36.3 - 47.1 %SOVA[facility]ALTH - DANVILLEHemoglobin (Bld) [Mass/Vol]13.3 g/dL11.9 - 15.1 g/dLBON [facility]ALTH SYSTEMImmature granulocytes (Bld) [#/Vol]0.16 10*3/uLBON [facility] granulocytes/100 WBC (Bld)2 %Myzx8FYE [facility]OUNT [facility]ALTH SYSTEMInterpretation and review of laboratory resultsAbnormalBON MOUNT CAR[facility] HEALTH SYSTEMLymphocytes/100 WBC (Bld)34 %24 - 43 %S[facility] Lymphocytes/100 WBC (Bld)2.92 %[facility] CENTERH (RBC) [Entitic mass] 31.4 pg25.2 - 33.5 pgBON SECOURS DEPAUL MEDICAL CENTERHC (RBC) [Mass/Vol]31.8 g/dL28.4 - 34.8 g/dLBON [facility] MERCY HEALTHMCV (RBC) [Entitic vol]98.6 fL82.6 - 102.9 fL [facility] HEALTHMonocytes/100 WBC (Bld)8 %3 - 12 %[facility] HEALTHMonocytes/100 WBC (Bld)0.67 %[facility] HEALTHNeutrophils/100 WBC (Bld)50 %36 - 65 %[facility] HEALTHNucleated RBC/100 WBC (Bld) [Ratio]0.0 %0.0 per 100 WBCBON SECOURS MERCY HEALTHPlatelet mean volume (Bld) [Entitic vol]9.1 fL8.1 - 13.5 fLBON [facility]ITALY HEALTHPlatelets (Bld) [#/Vol]370 10*3/uLBON [facility]ITALY HEALTHRBC (Bld) [#/Vol]4.24 10*6/uL3.95 - 5.11 m/uLBON [facility]ITALY HEALTHSegmented neutrophils/100 WBC (Bld)4.33 %[facility] HEALTHWBC other (Bld) [#/Vol]8.6BON [facility]ITALY HEALTHBON [facility]Y HEALTH CMPon 34-57-1259Vcxvhpr [Mass/Vol]4.7 g/dL3.5 - 5.2 g/dLBON [facility]Y HEALTH Albumin/Globulin [Mass ratio]1.6 {ratio}1.0 - 2.5B[facility] HEALTHALP [Catalytic activity/Vol]71 U/L35 - 104 U/LBON [facility] HEALTHALT [Catalytic activity/Vol]33 U/L5 - 33 U/LBON [facility] HEALTHAnion gap [Moles/Vol]10 mmol/L9 - 17 mmol/LBON [facility] MERCY HEALTHAST [Catalytic activity/Vol]33 U/L HighNINF - 32 U/LBON [facility] HEALTHBilirubin [Mass/Vol]0.2 mg/dLLow0.3 - 1.2 mg/dLBON [facility] HEALTHCalcium [Mass/Vol]10.2 mg/dL8.6 - 10.4 mg/dLBON [facility] HEALTHChloride [Moles/Vol]98 mmol/L98 - 107 mmol/LBON [facility]OUNT [facility]ALTH SYSTEMCO2 [Moles/Vol]31 mmol/L20 - 31 mmol/LBON [facility] Creatinine [Mass/Vol]1.1 mg/dLHigh0.5 - 0.9 mg/dLBON [facility] GFR/1.73 sq M.predicted MDRD (S/P/Bld) [Vol rate/Area]- PINFBON MOUNT CARMEL HEALTH SYSTEMComment on above: These results are not intended [...] therapy that affects renal tubular secretion. Glucose [Mass/Vol]109 mg/hPYbht74 - 99 mg/dLBON [facility] Interpretation and review of laboratory resultsAbnormalSOVAH HEALTH - [place] Potassium [Moles/Vol]4.2 mmol/L3.7 - 5.3 mmol/LBON [facility]ALTH SYSTEMProtein [Mass/Vol]7.7 g/dL6.4 - 8.3 g/dLBON MOUNT CAR[facility]EL HEALTH SYSTEMSodium [Moles/Vol]139 mmol/L135 - 144 mmol/LBON [facility]OUNT [facility]ALTH SYSTEMUrea nitrogen [Mass/Vol]15 mg/dL6 - 20 mg/dLBON MOUNT [facility]EL HEALTH SYSTEMUrea nitrogen/Creatinine [Mass ratio]14 mg/mg9 - 20BON [facility]ALTH SYSTEMCOVID-19, Rapidon 59-97-1929EOUX-CoV-2 (COVID-19) RdRp gene ASHLEY+probe Ql (Resp)Not detectedNot [facility] Comment on above: Rapid NAAT: The specimen [...] management decisions. Fact sheet for Healthcare Providers: https://www.fda.gov/media/810196/download Fact sheet for Patients: https://www.fda.gov/media/843994/download Methodology: Isothermal Nucleic Acid Amplification Specimen Description.NASOPHARYNGEAL SWABBON [facility] CERVICAL SPINE WO CONTRASTon . No acute traumatic abnormality involving the cervical spine. [facility] CONSOLIDATEDEXAMINATION: CT OF THE CERVICAL SPINE WITHOUT CONTRAST [...] There is no prevertebral soft tissue swelling. [facility] Niles Blanco MD - 06/10/2023 EXAMINATION: CT OF THE [...] acute traumatic abnormality involving the cervical spine. S[facility]ALTH - DANVILLERadiology Study observation (narrative)SOVA[facility] - DANVILLECT CERVICAL SPINE WO CONTRASTOrdered By: Niles Barbosa on 28-47-9065PIL [facility] Work Phone: ct CHEST PULMONARY EMBOLISM W CONTRASTon 06-10-2023 Mild nonspecific bibasilar interstitial infiltrates. Coronary artery disease. [facility] CONSOLIDATEDEXAMINATION: CTA OF THE CHEST 06/10/2023 10:33 pm [...] No acute bone or soft tissue abnormality. [facility] Zak Dennis MD - 06/10/2023 EXAMINATION: CTA OF THE [...] nonspecific bibasilar interstitial infiltrates. Coronary artery disease. [facility] SYSTEMRadiology Study observation (narrative)[facility] Head WO Contraston 22-94-2097Ke acute intracranial abnormality. [facility] CONSOLIDATEDEXAMINATION: CT OF THE HEAD WITHOUT CONTRAST 06/10/2023 [...] of the visualized skull or soft tissues. [facility] Zak Dennis MD - 06/10/2023 EXAMINATION: CT OF THE [...] soft tissues. IMPRESSION: No acute intracranial abnormality. [facility] CatglobeCLEVELAND CLINIC HILLCREST HOSPITALRadiology Study observation (narrative)[facility] [employer] [facility] CITY HOSPITALCT Head WO ContrastOrdered By: Zak Duque on [id number] [facility] MEDICAL CENTERRed Mountain [employer] Work Phone: Magnesiumon 06-22-6614Rommshwiv [Mass/Vol]2.0 mg/dL1.6 - 2.6 mg/dLBON [facility] CENTERRed Mountain Medical ResponseCLEVELAND CLINIC HILLCREST HOSPITALNo Panel Informationon [id number] [facility] CENTERAF83 [facility] HOSPITALTroponinon 17-80-1969Othgdbnpadjolj and review of laboratory resultsAbnormalBON [facility] Medical Centeroponin I.cardiac High sensitivity method [Mass/Vol]27 ng/LHigh0 - 14 ng/LBON [facility] SYSTEMComment on above: High Sensitivity Troponin values cannot be compared with other Troponin methodologies.[facility] REG[facility] MEDICAL CENTERSmart Energy FOSTORIA CITY HOSPITALXR CHEST (2 VW)on 87-61-0634Sz acute process. [facility] CONSOLIDATEDEXAMINATION: TWO XRAY VIEWS OF THE CHEST 06/10/2023 9:33 pm COMPARISON: None. HISTORY: ORDERING SYSTEM PROVIDED HISTORY: Cough x1wk TECHNOLOGIST PROVIDED HISTORY: Cough x1wk FINDINGS: The lungs are without acute focal process. There is no effusion or pneumothorax. The cardiomediastinal silhouette is without acute process. The osseous structures are without acute process. [facility] Zak Dennis MD - 06/10/2023 EXAMINATION: TWO XRAY VIEWS OF THE CHEST 06/10/2023 9:33 pm COMPARISON: None. HISTORY: ORDERING SYSTEM PROVIDED HISTORY: Cough x1wk TECHNOLOGIST PROVIDED HISTORY: Cough x1wk FINDINGS: The lungs are without acute focal process. There is no effusion or pneumothorax. The cardiomediastinal silhouette is without acute process. The osseous structures are without acute process. IMPRESSION: No acute process. [facility] SYSTEMRadiology Study observation (narrative)[facility] GLUCOSEon 16-24-7125Irbmmks [Mass/Vol]136 mg/dLCritically soke61-620BrvMartin Memorial HospitalComment on above: Performed By: #### POCGLUC #### [facility] [address] [address] [address] Murillo [facility] GLUCOSEon 48-33-1935Ykmojzr [Mass/Vol]129 mg/dL Critically bubo85-608MsxMartin Memorial HospitalComment on above:Performed By: #### POCGLUC #### [facility] [address] [address] [address] Chidi ReyesMUNSON [facility] THORACIC SPINE WO CONTRASTon 81-73-0416Yw acute abnormality in the thoracic spine. No significant spinal canal or neural foraminal narrowing. [facility] CONSOLIDATEDEXAMINATION: MRI OF THE THORACIC SPINE WITHOUT CONTRAST [...] neural foraminal narrowing of the thoracic spine. [facility] Shabbir Kc DO - 12/28/2022 EXAMINATION: MRI OF THE [...] significant spinal canal or neural foraminal narrowing. [employer] Work Phone: radiology Study observation (narrative)[employer] Phone: MRI THORACIC SPINE WO CONTRASTOrdered By: Shabbir Weaver on [id number] [employer] Phone: Colonoscopy studyon [id number] dictationDIGNITY [facility] [employer] Phone: colonoscopy studyOrdered By: Roberto Epic on 12-08-2022 [facility] [employer] Phone: Glucose, Whole Bloodon [id number] [Mass/Vol]117 mg/xSDjrx20 - 100 mg/dLBON UniPayInterpretation and review of laboratory resultsAbnormalDIGN[facility] UniPayDIGN[facility] UniPayXR TSPINE 2 VIEWSon [id number] TSPINE 2 VIEWSEXAMINATION: XR TSPINE 2 VIEWS, XR LSPINE 2_3 [...] Electronically authenticated by: PHILLIP CAMACHO Date: 2022-12-01 09:[address] [place] [address] LUMBAR SPINE WO CONTRASTon [id number] degenerative change without canal stenosis or foraminal narrowing. RECOMMENDATIONS: Unavailable [facility] CONSOLIDATEDEXAMINATION: MRI OF THE LUMBAR SPINE WITHOUT CONTRAST, [...] is no canal stenosis or foraminal narrowing. [facility] Vern Parks MD - 11/17/2022 EXAMINATION: MRI OF THE [...] canal stenosis or foraminal narrowing. RECOMMENDATIONS: Unavailable [employer] Phone: radiology Study observation (narrative)[employer] Phone: MRI LUMBAR SPINE WO CONTRASTOrdered By: Vern Olivo on [id number] [employer] Phone: basic Metabolic Panelon [id number] gap [Moles/Vol]14.5 mmol/LNormal6.0-15.0Dayton Va Medical CenterComment on above:Performed By: #### DIFF CBC, BMP #### [facility] [address] [place] [address] USACalcium [Mass/Vol]9.2 mg/dLNormal8.2-10.2FTriHealth Good Samaritan HospitalComment on above:Performed By: #### DIFF CBC, BMP #### [facility] [address] [id number] USAChloride [Moles/Vol]101 mmol/PQzejyr87-232SzyafxrorDayton Va Medical CenterComment on above:Performed By: #### DIFF CBC, BMP #### [facility] [address] [place] [address] USACO2 [Moles/Vol]24.0 mmol/KWedzwy02.0-30.0Dayton Va Medical CenterComment on above:Performed By: #### DIFF CBC, BMP #### [facility] [address] [id number] USACreatinine [Mass/Vol]1.02 mg/dLNormal0.44-1.03Dayton Va Medical CenterComment on above:Performed By: #### DIFF CBC, BMP #### [facility] [address] [place] [address] USACreatinine Clr Calc Uwixvzfo08.76NoHolzer Health SystemComment on above:Result Comment: PERFORMED BY: [facility] [address] [place] [address] PATHOLOGIST BRANCH LIBRARY CLERK GRZEGORZ DUMONT M.D.Performed By: #### DIFF CBC, BMP #### [facility] [address] [place] [address] USAEstimated GFR ( Mai> 60Ohio[facility] Nelsonville Health CenterComment on above:Result Comment: GFR estimated reference range: According to KDOQI guidelines, <60 ml/min/1.73m2 is sufficient to diagnose a patient with chronic kidney disease.Performed By: #### DIFF CBC, BMP #### [facility] [address] [place] [address] USAEstimated GFR (Non- Cl84KattbkMrgugedbuOhioHealth Nelsonville Health CenterComment on above:Performed By: #### DIFF CBC, BMP #### [place] [address] USAGlucose [Mass/Vol]223 mg/vEDeig28-930OgycnxrohDayton Va Medical CenterComment on above:Result Comment: Random Glucose Reference Range is dependent on time and content of last meal. Glucose of more than 200 mg/dL in a nonstressed, ambulatory subject supports the diagnosis of Diabetes Mellitus. ADA recommended reference rangePerformed By: #### DIFF CBC, BMP #### [facility] [address] [place] [address] USAPotassium [Moles/Vol]4.5 mmol/LNormal3.5-5.1FTriHealth Good Samaritan HospitalComment on above:Performed By: #### DIFF CBC, BMP #### [facility] [address] [place] [address] USASodium [Moles/Vol]135 mmol/SIig374-108CerrcgicuDayton Va Medical CenterComment on above:Performed By: #### DIFF CBC, BMP #### [facility] [address] [place] [address] USAUrea nitrogen [Mass/Vol]29 mg/dLCommunity Memorial Hospital[address] [place], [place] [address]Comment on above:Performed By: #### DIFF CBC, BMP #### [facility] [address] [place] [address] USAGlucose Poct Glucometerson 44-48-4394Uvwkzxw [Mass/Vol]239 mg/dLNoHolzer Health SystemComment on above:Result Comment: Random Glucose Reference Range is dependent on time and content of last meal. Glucose of more than 200 mg/dL in a nonstressed, ambulatory subject supports the diagnosis of Diabetes Mellitus. PERFORMED BY: [facility] [address] [place] [address] PATHOLOGIST BRANCH LIBRARY CLERK GRZEGORZ DUMONT M.D.Performed By: #### GLULS #### Point of Care testing ,Glucose [Mass/Vol]234 mg/dLOhioHealth Nelsonville Health CenterComment on above:Result Comment: Random Glucose Reference Range is dependent on time and content of last meal. Glucose of more than 200 mg/dL in a nonstressed, ambulatory subject supports the diagnosis of Diabetes Mellitus. PERFORMED BY: [place] [address] PATHOLOGIST BRANCH LIBRARY CLERK GRZEGORZ DUMONT M.D.Performed By: #### GLULS #### Point of Care testing ,COVID-19 Antigenon 78-66-3616EPBHV-19 AntigenHealthcare Worker?: N Reference Range: Negative Negative results, [...] developed and its performance characteristic determined by [employer] and validated at [facility]. This test has not been FDA cleared [...] for SARS Antigen by RY PERFORMED BY: [place] [address] PATHOLOGIST BRANCH LIBRARY CLERK GRZEGORZ DUMONT M.D.[facility] Health CenterComment on above: Performed By: #### COVID-19 TAB, SOFIANEG #### [place] [address] USACOVID-19 SOFIAOrdered By: Shiraz Sherman on 09-30-2022 SARS-CoV+SARS-CoV-2 (COVID-19) Ag IA.rapid Ql (Resp)NegativeNegWadsworth-Rittman HospitalComment on above:This is a duplicate Tab SARS Antigen (YR) result to be used for statistical tracking purpose only.No Panel InformationOrdered By: Shiraz Sherman on 20-19-7288FRQO Antigen (LFIA)[facility] Center – Jacksonofia Ag Negativeon 04-02-9038Qkovy Ag NegativeNegative NormalNegWadsworth-Rittman HospitalComment on above:Result Comment: This is a duplicate Tab SARS Antigen (RY) result to be used for statistical tracking purpose only. PERFORMED BY: [place] [address] PATHOLOGIST BRANCH LIBRARY CLERK GRZEGORZ DUMONT M.D.Performed By: #### COVID-19 JUS BARTH #### [facility] [address] [place] [address] USATilt Table Teston 77-51-3462Rodqkp Bruhl, MD - 09/29/2022 11:59 PM EST [address] [address] TILT TABLE TEST PATIENT NAME: VIRGIL WARNER : 1975 MED REC NO: [id number] ROOM: ACCOUNT NO: [id number] ADMIT DATE: 09/29/2022 PROVIDER: Sharon Vargas MD [...] up with their primary care physician and/or school teacher as previously scheduled. STUDY CONCLUSIONS: Abnormal head [...] VARGAS MD YURY/JULIUS_KIARA Doc#: Unknown CC: Vivian Lemos, [facility] [employer] Work Phone: Tilt Table TestOrdered By: Sharon Vargas on 09-29-2022 [facility] [employer] Work Phone: LDL Cholesterol, Directon 62-54-6985Wspijzozvjs in LDL [Mass/Vol]48 mg/dLNINF - 100 mg/dLBON [facility] MEDICAL CENTERSprinklrMILFORD REGIONAL MEDICAL CENTERSmart Energy [facility] 29-61-6164HKE [Catalytic activity/Vol]U/LLow5 - 33 U/LBON [facility] CENTERSmart Energy F[facility] CITY HOSPITALInterpretation and review of laboratory resultsAbnormalBON [facility] CENTERSmart Energy FOSTORIA CITY HOSPITALASTon 81-89-4872JXE [Catalytic activity/Vol]U/LNINF - 32 U/LBON [facility] CENTERSmart Energy FOSTOR[facility] CITY HOSPITALBand form neutrophils/100 WBC Manual cnt (Bld)Ordered By: Shiraz Sherman on 49-52-0530Jpjo form neutrophils/100 WBC (Bld)4 %0-5FTriHealth Good Samaritan HospitalBasic Metabolic Panelon 68-06-0854Qyqgu gap [Moles/Vol] 14.4 mmol/LNormal6.0-15.0Dayton Va Medical CenterComment on above: Performed By: #### DIFF CBC, BMP #### [place] [address] USACalcium [Mass/Vol]10.0 mg/dLNormal8.2-10.2FTriHealth Good Samaritan HospitalComment on above:Result Comment: PERFORMED BY: [place] [address] PATHOLOGIST BRANCH LIBRARY CLERK GRZEGORZ DUMONT M.D.Performed By: #### DIFF CBC, BMP #### [facility] [address] [place] [address] USAChloride [Moles/Vol]99 mmol/NJlopxq42-383BnwvefyazDayton Va Medical CenterComment on above:Performed By: #### DIFF CBC, BMP #### [place] [address] USACO2 [Moles/Vol]23.5 mmol/XOcoxiu58.0-30.0Day[facility] Va Medical CenterComment on above:Performed By: #### DIFF CBC, BMP #### [place] [address] USACreatinine [Mass/Vol]0.91 mg/dLNormal0.44-1.03Day[facility] Va Medical CenterComment on above:Performed By: #### DIFF CBC, BMP #### [place] [address] USAEstimated GFR ( Mai> 60NormShelby Memorial HospitalComment on above:Result Comment: GFR estimated reference range: According to KDOQI guidelines, <60 ml/min/1.73m2 is sufficient to diagnose a patient with chronic kidney disease.Performed By: #### DIFF CBC, BMP #### [place] [address] USAEstimated GFR (Non- Am> 60NormShelby Memorial HospitalComment on above:Performed By: #### DIFF CBC, BMP #### [place] [address] USAGlucose [Mass/Vol]270 mg/hIPavp52-155NwmavljsfDayton Va Medical CenterComment on above:Result Comment: Random Glucose Reference Range is dependent on time and content of last meal. Glucose of more than 200 mg/dL in a nonstressed, ambulatory subject supports the diagnosis of Diabetes Mellitus. ADA recommended reference rangePerformed By: #### DIFF CBC, BMP #### [facility] [address] [place] [address] USAPotassium [Moles/Vol]4.9 mmol/LNormal3.5-5.1FTriHealth Good Samaritan HospitalComment on above:Performed By: #### DIFF CBC, BMP #### [facility] [address] [place] [address] USASodium [Moles/Vol]132 mmol/YCge468-740NdnwohpxmDayton Va Medical CenterComment on above:Performed By: #### DIFF CBC, BMP #### [facility] [address] [place] [address] USAUrea nitrogen [Mass/Vol]20 mg/dLNormal9-23Dayton Va Medical CenterComment on above:Performed By: #### DIFF CBC, BMP #### [facility] [address] [place] [address] USAAnion gap [Moles/Vol]15 mmol/L9 - 17 mmol/LBON SECSmart Energy HEALTHCalcium [Mass/Vol]10.2 mg/dL8.6 - 10.4 mg/dLBON SECSprinklr Chloride [Moles/Vol]98 mmol/L98 - 107 mmol/LBON SEC[employer] HEALTHCO2 [Moles/Vol]22 mmol/L20 - 31 mmol/LBON SECSprinklrCreatinine [Mass/Vol] 0.85 mg/dL0.50 - 0.90 mg/dLBON SECSmart Energy HEALTHGFR/1.73 sq M.predicted MDRD (S/P/Bld) [Vol rate/Area]- PINFBON [facility]ON[facility]OTTSD[facility] MEDICAL CENTERSmart Energy FOSTORIA CITY HOSPITALComment on above: Effective Jun 28, 2022 These [...] therapy that affects renal tubular secretion. Glucose [Mass/Vol]271 mg/cEQbzi93 - 99 mg/dLBON [facility] Interpretation and review of laboratory resultsAbnormalBON [facility]Y HEALTH Potassium [Moles/Vol]4.8 mmol/L3.7 - 5.3 mmol/LBON [facility]OURS MERCY HEALTHSodium [Moles/Vol]135 mmol/L135 - 144 mmol/LBON [facility]RS MERCY HEALTHUrea nitrogen (BldV) [Mass/Vol]22 mg/dLHigh6 - 20 mg/dLBON [facility]ITALY HEALTHUrea nitrogen/Creatinine (Bld) [Mass ratio]12Paqo2 - 20B[facility]ITALY HEALTHBON [facility]ITALY HEALTHBasophils Auto (Bld) [#/Vol]Ordered By: Shiraz Sherman on 23-79-5503Xpsarmmwy (Bld) [#/Vol]N/[facility] Basophils/100 WBC Auto (Bld)Ordered By: Shiraz Sherman on 27-48-4347Wmfgbgtxw/100 WBC (Bld)N/[facility]ore Medical CenterBasophils/100 WBC Manual cnt (Bld) Ordered By: Shiraz Sherman on 96-74-1351Fgkuefzzq/100 WBC (Bld)1 %0-[address] [place], [place] [address]CBC with Auto Differentialon 58-12-6702Ochgtngq Eos #0.57 HighBON SECOURS [facility]LEVELAND CLINIC [facility] HOSPITALY FOST[facility] CITY HOSPITALAbsolute Immature Granulocyte0.19[facility] HEALTHAbsolute Lymph #3.29B[facility] HEALTHAbsolute Gila #0.66[facility]OSPITALY F[facility] CITY HOSPITALBasophils (Bld) [#/Vol]0.11 10*3/uLBON [facility]OS[facility]ITALY HEALTH Basophils/100 WBC (Bld)1 %0 - 2 %BON [facility] FOSTORIA CITY HOSPITALEosinophils/100 WBC (Bld)6 %High1 - 4 %[facility]ITALY HEALTHHematocrit (Bld) [Volume fraction] 43.2 %36.3 - 47.1 %[facility]ITALY HEALTHHemoglobin (Bld) [Mass/Vol]13.9 g/dL 11.9 - 15.1 g/dLBON SECOURS [facility] HOSPITALY FOST[facility] CITY HOSPITALImmature granulocytes/100 WBC (Bld)2 % Smbl5DXQ [facility]OS[facility]ITALY HEALTHInterpretation and review of laboratory results AbnormalBON SECOURS [facility] HOSPITALY FOSTORIA CITY HOSPITALLymphocytes/100 WBC (Bld)35 %24 - 43 %BON COREY HOSPITALH (RBC) [Entitic mass]32.3 pg25.2 - 33.5 pgBON SECCLEVELAND CLINIC AKRON GENERALHC (RBC) [Mass/Vol]32.2 g/dL28.4 - 34.8 g/dLBON SECCLEVELAND CLINIC AKRON GENERALV (RBC) [Entitic vol]100.5 fL82.6 - 102.9 fLBON [facility] Monocytes/100 WBC (Bld)7 %3 - 12 %BON [facility] HEALTHNRBC Automated0.00.0 per 100 WBCBON SECOCHSNER MEDICAL CENTER HEALTHPlatelet distribution width (Bld) [Ratio]13.2 %11.8 - 14.4 %BON SECOCHSNER MEDICAL CENTER HEALTHPlatelet mean volume (Bld) [Entitic vol] 9.1 fL8.1 - 13.5 fLBON SECOCHSNER MEDICAL CENTER HEALTHPlatelets (Bld) [#/Vol]393 10*3/uLBON SECOCHSNER MEDICAL CENTER HEALTHRBC (Bld) [#/Vol]4.30 10*6/uL3.95 - 5.11 m/uLBON [facility]ALTH SYSTEMSegmented neutrophils/100 WBC (Bld)49 %36 - 65 %BON [facility] HEALTH SYSTEMSegs Absolute4.59BON SECOCHSNER MEDICAL CENTER HEALTHWBC (Bld) [#/Vol]9.4 10*3/uLBON SECST. ANTHONY'[facility]OS[facility] SECWALDO HOSPITALY HEALTHCreatinine and Glomerular filtration rate.predicted panel (S/P/Bld)Ordered By: Shiraz Sherman on 40-68-3271Actxyitlal [Mass/Vol]0.91 mg/dL0.44-1.03Day[facility] Va Medical CenterDiff and CBCon 82-30-1269Ldrh form neutrophils/100 WBC (Bld)4 %Normal0-5FTriHealth Good Samaritan HospitalComment on above:Performed By: #### DIFF CBC, BMP #### [facility] [address] [place] [address] USABasophils/100 WBC (Bld)1 %Normal0-2FTriHealth Good Samaritan HospitalComment on above:Performed By: #### DIFF CBC, BMP #### [facility] [address] [place] [address] USAEosinophils/100 WBC (Bld)7 %High1-3FTriHealth Good Samaritan HospitalComment on above:Performed By: #### DIFF CBC, BMP #### [facility] [address] [place] [address] USAErythrocyte distribution width (RBC) [Ratio]14.2 %Normal 11.9-15.3FTriHealth Good Samaritan HospitalComment on above:Performed By: #### DIFF CBC, BMP #### [facility] [address] [place] [address] USAGiant Platelet Tally2 /100{WBC}NormalDayton Va Medical CenterComment on above:Performed By: #### DIFF CBC, BMP #### [facility] [address] [id number] USAHematocrit (Bld) [Volume fraction]38.8 %Qxwwxo59.0-46.4 [facility] Medical CenterComment on above:Performed By: #### DIFF CBC, BMP #### [facility] [address] [place] [address] USAHemoglobin (Bld) [Mass/Vol]12.9 g/iBAzapad77.8-15.4 [facility] Medical CenterComment on above:Performed By: #### DIFF CBC, BMP #### [facility] [address] [place] [address] USALymphocytes/100 WBC (Bld)15 %Wiz11-98ZlvvlubclDayton Va Medical CenterComment on above:Performed By: #### DIFF CBC, BMP #### [facility] [address] [place] [address] USAMCH (RBC) [Entitic mass]31.0 okFghalk29.7-34.3FTriHealth Good Samaritan HospitalComment on above:Performed By: #### DIFF CBC, BMP #### [facility] [address] [place] [address] USAMCV (RBC) [Entitic vol]93.3 pMRycsjj03-515GrrmamtljDayton Va Medical CenterComment on above:Performed By: #### DIFF CBC, BMP #### [facility] [address] [place] [address] USAMean Corpuscular HGB Conc33.2 g/jZCgrust31.0-35.0Day[facility] Va Medical CenterComment on above:Performed By: #### DIFF CBC, BMP #### [facility] [address] [place] [address] USAMetamyelocytes2 %High0-0[facility] Comment on above:Performed By: #### DIFF CBC, BMP #### [facility] [address] [place] [address] USAMonocytes/100 WBC (Bld)9 %Normal2-11Day[facility] Va Medical CenterComment on above:Performed By: #### DIFF CBC, BMP #### [place] [address] USAMyelocytes1 %High0-0[facility] Comment on above:Performed By: #### DIFF CBC, BMP #### [facility] [address] [place] [address] USAPlatelet EstimateNormalNormalNoHolzer Health SystemComment on above:Performed By: #### DIFF CBC, BMP #### [facility] [address] [place] [address] USAPlatelet mean volume (Bld) [Entitic vol]7.4 fLNormal 6.3-10.7FTriHealth Good Samaritan HospitalComment on above:Result Comment: PERFORMED BY: [place] [address] PATHOLOGIST BRANCH LIBRARY CLERK GRZEGORZ DUMONT M.D.Performed By: #### DIFF CBC, BMP #### [facility] [address] [place] [address] USAPlatelet MorphologyNormalNormalOhioHealth Nelsonville Health CenterComment on above:Result Comment: PERFORMED BY: [address] [address] PATHOLOGIST BRANCH LIBRARY CLERK GRZEGORZ DUMONT M.D.Performed By: #### DIFF CBC, BMP #### [facility] [address] [place] [address] USAPlatelets (Bld) [#/Vol]363 10*3/xSCrvfhu019-294MxxigteugDayton Va Medical CenterComment on above:Performed By: #### DIFF CBC, BMP #### [facility] [address] [place] [address] USARBC (Bld) [#/Vol]4.16 10*6/uLNormal3.60-5.00Day[facility] Va Medical CenterComment on above:Performed By: #### DIFF CBC, BMP #### [facility] [address] [place] [address] USARBC morphology finding Nom (Bld)NormalNormalNormal [facility] Medical CenterComment on above:Performed By: #### DIFF CBC, BMP #### [facility] [address] [place] [address] USASegmented neutrophils/100 WBC (Bld)62 %Xqvhoi46-36 [facility] CenterComment on above:Performed By: #### DIFF CBC, BMP #### [facility] [address] [place] [address] USAWBC (Bld) [#/Vol]8.4 10*3/uLNormal3.8-11.6FTriHealth Good Samaritan HospitalComment on above:Performed By: #### DIFF CBC, BMP #### [place] [address] USAECG 12 lead ECGon 27-79-6733QLL 12 lead ECGCINCINNATI [facility] [place] [address] [place] [address] Electrocardiograph Report Signed Patient: Virgil Warner MR#: [id number] 52 : 1975 Acct:[id number] Age/Sex: 47 / F ADM Date: 09/21/22 Loc: PS Room: Type: [facility] Attending Dr: Shiraz Sherman MD Ordering [...] Signed By John Sanchez MD 1 11/22/21 1710NormalDayton Va Medical CenterEosinophils Auto (Bld) [#/Vol]Ordered By: Shiraz Sherman on 03-74-5416Usixzwheroz (Bld) [#/Vol]N/[facility] CenterEosinophils/100 WBC Auto (Bld)Ordered By: Shiraz Sherman on 59-17-7839Pwewznqzxlj/100 WBC (Bld)N/[facility] Eosinophils/100 WBC Manual cnt (Bld)Ordered By: Shiraz Sherman on 09-21-2022 Eosinophils/100 WBC (Bld)7 %1-3FTriHealth Good Samaritan HospitalErythrocyte distribution width Auto (RBC) [Ratio]Ordered By: hSiraz Sherman on 09-21-2022 Erythrocyte distribution width (RBC) [Ratio]14.2 %11.9-15.3FTriHealth Good Samaritan HospitalEstimated glomerular filtration rate (GFR) non- Ordered By: Shiraz Sherman on 74-89-9122QOC/1.73 sq M.predicted among non-blacks MDRD (S/P/Bld) [Vol rate/Area]> 60 mL/MinDayton Va Medical CenterGiant platelets/100 leukocytes [Ratio] in Blood by Manual countOrdered By: Shiraz Sherman on 28-90-2015Kpsyb platelets/100 WBC Manual cnt (Bld) [Ratio]2 /100{WBC} [facility] Medical CenterHematocrit Auto (Bld) [Volume fraction]Ordered By: Shiraz Sherman on 44-59-5371Yrkunzmvsx (Bld) [Volume fraction]38.8 %34.0-46.4 [facility] Medical CenterHemoglobin [Mass/volume] in BloodOrdered By: Shiraz Sherman on 91-17-7148Tjpfcthsll (Bld) [Mass/Vol]12.9 g/dL11.8-15.4FTriHealth Good Samaritan HospitalLeukocytes [#/volume] corrected for nucleated erythrocytes in Blood by Automated counOrdered By: Shiraz Sherman on 32-23-4995HPH corrected for nucl RBC Auto (Bld) [#/Vol]8.4 10*3/uL3.8-11.6FTriHealth Good Samaritan HospitalLipid Panelon 39-44-8160Vnlwzhysoxp [Mass/Vol]215 mg/dLHighNINF - 200 mg/dLBON UniPayComment on above: Cholesterol Guidelines: <200 Desirable 200-240 Borderline >240 Undesirable Cholesterol in HDL [Mass/Vol]21 mg/dLLow40 - PINF mg/dLBON [employer] Comment on above: HDL Guidelines: <40 Undesirable 40-59 Borderline >59 Desirable Cholesterol.total/Cholesterol in HDL [Mass ratio]10.2 {ratio}HighNINF - 5BON UniPayInterpretation and review of laboratory resultsAbnormalBON UniPayLDL Cholesterol0 - 130 mg/dLBON UniPayComment on above:Calculation not valid for Triglyceride value greater than 400 mg/dL. Direct LDL reflexed LDL Guidelines: <100 Desirable 100-129 Near to/above Desirable 130-159 Borderline >159 Undesirable Direct (measured) LDL and calculated LDL are not interchangeable tests. Triglyceride [Mass/Vol]1567 mg/dLHighNINF - 150 mg/dLBON [employer] Comment on above: Triglyceride Guidelines: <150 Desirable 150-199 Borderline 200-499 High >499 Very high Based on AHA Guidelines for fasting triglyceride, June 2012. [place] UniPayLymphocytes Auto (Bld) [#/Vol]Ordered By: Shiraz Sherman on 53-35-0210Sataafrtrbx (Bld) [#/Vol]N/[facility] Lymphocytes/100 WBC Auto (Bld)Ordered By: Shiraz Sherman on 09-21-2022 Lymphocytes/100 WBC (Bld)N/[facility] Medical CenterLymphocytes/100 WBC Manual cnt (Bld)Ordered By: Shiraz Sherman on 42-71-7723Mxfgbnoajic/100 WBC (Bld)15 %18-42[facility] HospitalH Auto (RBC) [Entitic mass]Ordered By: Shiraz Sherman on 39-43-2410KVL (RBC) [Entitic mass]31.0 pg24.7-34.3FTriHealth Good Samaritan HospitalMCHC Auto (RBC) [Mass/Vol]Ordered By: Shiraz Sherman on 23-77-9915TZVT (RBC) [Mass/Vol]33.2 g/dL32.0-35.0[facility] Medical CenterMCV Auto (RBC) [Entitic vol]Ordered By: Shiraz Sherman on 33-62-2134LWL (RBC) [Entitic vol]93.3 mW50-390EojmclmqiDayton Va Medical CenterMetamyelocytes/100 WBC Manual cnt (Bld)Ordered By: Shiraz Sherman on 53-52-3334Ncuncstpapofna/100 WBC (Bld)2 %0-0[facility] Medical CenterMicroalbumin, Uron 09-21-2022 Albumin/Creatinine DL <= 20 mg/L (24H U) [Mass ratio]mg/LNINF - 21 mg/LBON [facility]ALTH SYSTEMAlbumin/Creatinine DL <= 20 mg/L (U) [Ratio]Can not be calculatedNICARILION ROANOKE MEMORIAL HOSPITALCreatinine [Mass/Vol]80.3 mg/dL28.0 - 217.0 mg/dLBON [facility] HEALTHMonocytes Auto (Bld) [#/Vol]Ordered By: Shiraz Sherman on 50-62-4379Ceajgyksl (Bld) [#/Vol]N/[facility] CenterMonocytes/100 WBC Auto (Bld)Ordered By: Shiraz Sherman on 83-32-4256Wuifnabqa/100 WBC (Bld)N/[facility] Monocytes/100 WBC Manual cnt (Bld)Ordered By: Shiraz Sherman on 09-21-2022 Monocytes/100 WBC (Bld)9 %2-11Day[facility] Medical CenterMyelocytes/100 WBC Manual cnt (Bld)Ordered By: Shiraz Sherman on 32-52-7838Eejgaremxc/100 WBC (Bld) 1 %0-0[facility] Medical CenterNeutrophils Auto (Bld) [#/Vol]Ordered By: Shiraz Sherman on 59-25-6138Siphydsnxbi (Bld) [#/Vol]NDiley Ridge Medical CenterNeutrophils/100 WBC Auto (Bld)Ordered By: Shiraz Sherman on 09-21-2022 Neutrophils/100 WBC (Bld)/[facility] Medical CenterNo Panel InformationOrdered By: Shiraz Sherman on 05-52-9150Nantjxjnf GFR ()> 60 mL/MinDayton Va Medical CenterComment on above:GFR estimated reference range: According to KDOQI guidelines, <60 ml/min/1.73m2 is sufficient todiagnose a patient with chronic kidney disease.Pharmacy Creatinine Clearance (ChemN/[facility] Medical CenterNo Panel Informationon 64-22-8180QYP [facility] HEALTH SYSTEMNucleated erythrocytes [Presence] in Blood by Automated countOrdered By: Shiraz Sherman on 95-85-4590Hgidutelj RBC Auto Ql (Bld)NDiley Ridge Medical CenterPlatelet adequacy [Presence] in Blood by Light microscopyOrdered By: Shiraz Sherman on 17-86-4609Xidlntibj LM Ql (Bld)[facility] HospitalPlatelet mean volume Auto (Bld) [Entitic vol] Ordered By: Shiraz Sherman on 02-37-2842Ilndlnge mean volume (Bld) [Entitic vol]7.4 fL6.3-10.7FTriHealth Good Samaritan HospitalPlatelet morphology finding [Identifier] in BloodOrdered By: Shiraz Sherman on 67-98-8349Ijjzfhhb morphology finding Nom (Bld)NormalOhioHealth Nelsonville Health CenterPlatelets Auto (Bld) [#/Vol]Ordered By: Shiraz Sherman on 56-21-2904Erfstesks (Bld) [#/Vol]363 10*3/rE982-942MixrlvespDayton Va Medical CenterRBC Auto (Bld) [#/Vol]Ordered By: Shiraz Sherman on 09-05-4726QQC (Bld) [#/Vol]4.16 10*6/uL3.60-5.00Day[facility] Va Medical CenterRBC morphologyOrdered By: Shiraz Sherman on 30-45-7012ENF morphology finding Nom (Bld)NormalNormalDayton Va Medical Center Segmented neutrophils/100 WBC Manual cnt (Bld)Ordered By: Shiraz Sherman on 95-86-1439Jstpnpndc neutrophils/100 WBC (Bld)62 %50-70Holzer Medical Center – Jacksonerum or plasma anion gap determinationOrdered By: Shiraz Sherman on 86-07-9284Rsuqk gap [Moles/Vol]14.4 mmol/L6.0-15.0Holzer Medical Center – Jacksonerum or plasma calcium measurement (mass/volume)Ordered By: Shiraz Sherman on 46-06-7228Syvnube [Mass/Vol]10.0 mg/dL8.2-10.2FTriHealth Good Samaritan Hospital Serum or plasma chloride measurement (moles/volume)Ordered By: Shiraz Sherman on 09-84-5940Mgfkxfct [Moles/Vol]99 mmol/J35-361TrmiaqyqvDayton Va Medical Center Serum or plasma glucose measurement (mass/volume)Ordered By: Shiraz Sherman on 69-98-0455Fupmwkb [Mass/Vol]270 mg/xU35-901UxgznuymzDayton Va Medical Center Comment on above:ADA recommended reference rangeRandom Glucose Reference Range is dependent on time and content of last meal. Glucose of more than 200 mg/dL in a nonstressed, ambulatory subject supports the diagnosisof Diabetes Mellitus. Serum or plasma potassium measurement (moles/volume)Ordered By: Shiraz Sherman on 62-91-5816Peuieeukd [Moles/Vol]4.9 mmol/L3.5-5.1FTriHealth McCullough-Hyde Memorial Hospitalerum or plasma sodium measurement (moles/volume)Ordered By: Shiraz Sherman on 84-34-7007Nbogdn [Moles/Vol]132 mmol/X527-299ItvdjiyruDayton Va Medical Center Serum or plasma total carbon dioxide measurement (moles/volume)Ordered By: Shiraz Sherman on 50-05-1102ZE6 [Moles/Vol]23.5 mmol/L22.0-30.0[facility] – Jacksonerum or plasma urea nitrogen measurement (mass/volume)Ordered By: Shiraz Sherman on 06-00-0526Iken nitrogen [Mass/Vol]20 mg/dL9-23Dayton Va Medical CenterWBC Auto (Bld) [#/Vol]Ordered By: Shiraz Sherman on 22-18-9907GTN (Bld) [#/Vol]8.4 10*3/uL3.8-11.6FTriHealth Good Samaritan HospitalPOINT OF CARE GLUCOSEon 89-39-6021Snflsai [Mass/Vol]151 mg/dLCritically nipl08-739AcsMartin Memorial HospitalComment on above:Performed By: #### POCGLUC #### [facility] [place] [facility] [address], [place] [address] Dr. Murillo [facility] GLUCOSEon 26-60-0268Allwbtk [Mass/Vol]184 mg/dL Critically fbuh79-907HfeMartin Memorial HospitalComment on above:Performed By: #### POCGLUC ####[facility] [place] [address] [place], [place] [address]Fu. Chidi [facility] GLUCOSEon 05-99-2248Kivacdh [Mass/Vol]95 mg/dL Lealhe56-517EtyMartin Memorial HospitalComment on above:Performed By: #### POCGLUC ####[facility] [place] [address] [place], [place] [address]Pg. Chidi [facility] Metabolic Panelon 07-63-0397Gykal gap [Moles/Vol]18 mmol/LHigh9 - 17 mmol/LBON [facility] CENTERSprinklrCalcium [Mass/Vol]9.6 mg/dL8.6 - 10.4 mg/dL [facility] Viacor HEALTHChloride [Moles/Vol]98 mmol/L98 - 107 mmol/LBON [facility]ENTERSprinklrCO2 [Moles/Vol]22 mmol/L20 - 31 mmol/LBON [facility] MESANutmeg Education Creatinine [Mass/Vol]0.91 mg/dLHigh0.50 - 0.90 mg/dLBON [facility] Integrated Corporate Health GFR/1.73 sq M.predicted MDRD (S/P/Bld) [Vol rate/Area]- PINFBON COL[facility]ITAL COSTA MESAMobOz Technology srl [facility] CITY HOSPITALComment on above: Effective Jun 28, 2022 These [...] therapy that affects renal tubular secretion. Glucose [Mass/Vol]207 mg/sZTaki50 - 99 mg/dLBON [facility] Interpretation and review of laboratory resultsAbnormalBON [facility] Potassium [Moles/Vol]4.8 mmol/L3.7 - 5.3 mmol/LBON [facility]ALTH SYSTEMSodium [Moles/Vol]138 mmol/L135 - 144 mmol/LBON [facility]ALTH SYSTEMUrea nitrogen (BldV) [Mass/Vol]28 mg/dLHigh6 - 20 mg/dLBON [facility] HEALTH SYSTEMUrea nitrogen/Creatinine (Bld) [Mass ratio]61Hlao7 - 20BON [facility] HOSPITALCBC with Auto Differentialon 05-86-3058Xtirpmds Eos #0.35B[facility] HEALTH SYSTEMAbsolute Immature Granulocyte0.10[facility] Absolute Lymph #3.09B[facility]ALTH SYSTEMAbsolute Gila #0.73B[facility]ALTH SYSTEMBasophils (Bld) [#/Vol]0.09 10*3/uLBON [facility]ALTH SYSTEMBasophils/100 WBC (Bld)1 %0 - 2 %SOVA[facility] HEALTH - DANVILLEEosinophils/100 WBC (Bld)4 %1 - 4 % S[facility]ALTH - DANVILLEHematocrit (Bld) [Volume fraction]39.6 %36.3 - 47.1 %SOVA[facility]ALTH - DANVILLEHemoglobin (Bld) [Mass/Vol]12.8 g/dL11.9 - 15.1 g/dLBON [facility]ALTH SYSTEMImmature granulocytes/100 WBC (Bld)1 %Vxqr0WOD [facility] SYSTEMInterpretation and review of laboratory resultsAbnormalBON [facility]OUNT CAR[facility] HEALTH SYSTEMLymphocytes/100 WBC (Bld)36 %24 - 43 %[facility]ON [facility]OREY HOSPITALH (RBC) [Entitic mass]31.3 pg25.2 - 33.5 pgBON COREY HOSPITALHC (RBC) [Mass/Vol] 32.3 g/dL28.4 - 34.8 g/dLBON MOUNT CAR[facility]EL HEALTH SYSTEMMCV (RBC) [Entitic vol]96.8 fL 82.6 - 102.9 fLSOVAH HEALTH - DANVILLEMonocytes/100 WBC (Bld)9 %3 - 12 %SOVAH HEALTH - DANVILLENRBC Automated0.00.0 per 100 WBCSOVAH HEALTH - DANVILLE Platelet distribution width (Bld) [Ratio]13.2 %11.8 - 14.4 %SOVA[facility] HEALTH - DANVILLEPlatelet mean volume (Bld) [Entitic vol]8.9 fL8.1 - 13.5 fLBON [facility] HEALTHPlatelets (Bld) [#/Vol]368 10*3/uLBON [facility] HEALTHRBC (Bld) [#/Vol]4.09 10*6/uL3.95 - 5.11 m/uLSOVAH HEALTH - DANVILLESegmented neutrophils/100 WBC (Bld)49 %36 - 65 %SOVAH HEALTH - DANVILLESegs Absolute4.20 SOVA[facility] HEALTH - DANVILLEWBC (Bld) [#/Vol]8.6 10*3/uLBON SECOAKLEAF SURGICAL HOSPITALD-Dimer, Quantitativeon 64-57-4742L-Dimer, Quant0.39SOVA[facility] HEALTH - DANVILLEComment on above: When combined with a low [...] more prevalent in patients with distal DVT. [facility]ERSmart Energy FOST[facility] CITY HOSPITALTroponinon 55-40-0593Ingcpdipmdnkrt and review of laboratory resultsAbnormalMILFORD REGIONAL MEDICAL CENTERSmart Energy FOSTORIA CITY HOSPITALTroponin, High Anwihhauxda39 ng/LHigh0 - 14 ng/LBON [facility] SYSTEMComment on above: High Sensitivity Troponin values cannot be compared with other Troponin methodologies. Patients with high levels of Biotin oral intake (i.e >5mg/day) may have falsely decreased Troponin levels. Samples collected within 8 hours of biotin intake may require additional information for diagnosis. S[facility] DANVILLEInterpretation and review of laboratory resultsAbnormal [facility] Viacor Berger Hospitaloponin, High Seddwnoiznr34 ng/LHigh0 - 14 ng/LBON [facility] Viacor F[facility] CITY HOSPITALComment on above: High Sensitivity Troponin values cannot be compared with other Troponin methodologies. Patients with high levels of Biotin oral intake (i.e >5mg/day) may have falsely decreased Troponin levels. Samples collected within 8 hours of biotin intake may require additional information for diagnosis. [facility] CENTERSmart Energy FOSTORIA CITY HOSPITALXR CHEST PORTABLEon 33-89-2695Wo evidence of acute cardiopulmonary process. Large body habitus. [facility] CONSOLIDATEDEXAMINATION: ONE XRAY VIEW OF THE CHEST 08/06/2022 2:55 pm COMPARISON: Frontal view of the chest October 05 2017 and November 23, 2015. HISTORY: ORDERING SYSTEM PROVIDED HISTORY: left anterior rib pain TECHNOLOGIST PROVIDED HISTORY: left anterior rib pain FINDINGS: Mild hypoexpansion of the lung calros, likely related to the patient's body habitus, [...] is present over the lower thoracic spine. [facility] Cristina Cabrera MD - 08/06/2022 EXAMINATION: ONE XRAY VIEW [...] of acute cardiopulmonary process. Large body habitus. Sypherlink Phone: radiology Study observation (narrative)Sypherlink Phone: xr CHEST PORTABLEOrdered By: Cristina English on 54-27-0543WLM Metaboli Phone: us LIVERon 42-45-4243Mujyh shows increased echogenicity suggesting hepatic steatosis without focal lesion. With otherwise unremarkable exam [facility] CONSOLIDATEDEXAMINATION: RIGHT UPPER QUADRANT ULTRASOUND 08/04/2022 1:55 pm [...] No evidence of right upper quadrant ascites. [facility] Ruddy Andrews DO - 08/04/2022 EXAMINATION: RIGHT UPPER QUADRANT [...] without focal lesion. With otherwise unremarkable exam [employer] Work Phone: radiology Study observation (narrative)[employer] Work Phone: US LIVEROrdered By: Ruddy Mallory on 82-29-5153SKJ [employer] Work Phone: Ceruloplasminon 01-79-3665Jafiqbjimsaeq45 mg/dL16 - 45 mg/dLBON UniPayDIGNITY [facility] UniPayHepatitis B Surface Antibodyon 95-03-4861ILA surface Ab (S) [Titer]<3.50NINFDIGNITY HEALTH ARIZONA GENERAL [facility]ITAL UniPay Comment on above: REFERENCE RANGE: <10.0 NON-REACTIVE/NOT IMMUNE >=10.0 REACTIVE/IMMUNE MyWobileCBC with Auto Differentialon 54-55-0319Fsbgqqbj Eos # 0.32BON UniPayAbsolute Immature Granulocyte0.07BON UniPayAbsolute Lymph #3.05BON SECSprinklrAbsolute Gila #0.53DIGN[facility] UniPayBasophils (Bld) [#/Vol]0.06 10*3/uLBON UniPay Basophils/100 WBC (Bld)1 %0 - 2 %DIGN[facility] UniPayEosinophils/100 WBC (Bld)4 %1 - 4 %MyWobileHematocrit (Bld) [Volume fraction]38.1 % 36.3 - 47.1 %MyWobileHemoglobin (Bld) [Mass/Vol]11.9 g/dL11.9 - 15.1 g/dLBON UniPayImmature granulocytes/100 WBC (Bld)1 %Mltn7MSK UniPayInterpretation and review of laboratory resultsAbnormalDIGNITY [facility] UniPayLymphocytes/100 WBC (Bld)40 %24 - 43 %MyWobileMCH (RBC) [Entitic mass]31.1 pg25.2 - 33.5 pgBON SECTHE BELLEVUE HOSPITALMCHC (RBC) [Mass/Vol]31.2 g/dL28.4 - 34.8 g/dLBON SECTHE BELLEVUE HOSPITALMCV (RBC) [Entitic vol]99.5 fL82.6 - 102.9 fLBON [facility]OUNT [facility]EL [facility]ALTH SYSTEMMonocytes/100 WBC (Bld)7 %3 - 12 %[facility] HEALTH SYSTEMNRBC Automated0.00.0 per 100 WBCBON MOUNT CARMEL HEALTH SYSTEMPlatelet distribution width (Bld) [Ratio]13.7 %11.8 - 14.4 % [facility] HEALTH SYSTEMPlatelet mean volume (Bld) [Entitic vol]8.9 fL8.1 - 13.5 fLBON [facility] HEALTHPlatelets (Bld) [#/Vol]357 10*3/uLBON [facility]EL HEALTH SYSTEMRBC (Bld) [#/Vol]3.83 10*6/uLLow3.95 - 5.11 m/uLSOVAH HEALTH - DANVILLE Segmented neutrophils/100 WBC (Bld)47 %36 - 65 %B[facility] HEALTH SYSTEMSegs Absolute3.61BON SECTHE BELLEVUE HOSPITALWBC (Bld) [#/Vol]7.6 10*3/uLBON [facility]IONAL HOSPITALComprehensive Metabolic Panel with Bilirubin on 65-43-6292Vttnbvy [Mass/Vol]4.6 g/dL3.5 - 5.2 g/dLBON [facility] Albumin/Globulin [Mass ratio]1.8 {ratio}1.0 - 2.5BON MOUNT CARMEL HEALTH SYSTEMALP (Bld) [Catalytic activity/Vol]53 U/L35 - 104 U/LBON [facility] HEALTHALT [Catalytic activity/Vol]36 U/LHigh5 - 33 U/LBON [facility]ALTH SYSTEMAnion gap [Moles/Vol]13 mmol/L9 - 17 mmol/LBON [facility] HEALTHAST [Catalytic activity/Vol]37 U/LHighNINF - 32 U/LBON [facility]ALTH SYSTEMBilirubin [Mass/Vol] 0.2 mg/dLLow0.3 - 1.2 mg/dLBON [facility] HEALTH SYSTEMBilirubin, IndirectCan not be calculated0.00 - 1.00 mg/dLBON [facility] HEALTH SYSTEMBilirubin.indirect [Mass/Vol]mg/dLNINF - 0.31 mg/dLBON [facility] HEALTH SYSTEMCalcium [Mass/Vol]9.2 mg/dL8.6 - 10.4 mg/dLBON [facility] HEALTH SYSTEMChloride [Moles/Vol]102 mmol/L98 - 107 mmol/LBON [facility] HEALTH SYSTEMCO2 [Moles/Vol]24 mmol/L20 - 31 mmol/LBON [facility]ALTH SYSTEMCreatinine [Mass/Vol]0.88 mg/dL0.50 - 0.90 mg/dLBON [facility]OUNT CAR[facility]EL HEALTH SYSTEMGFR/1.73 sq M.predicted MDRD (S/P/Bld) [Vol rate/Area]- PINFBON MOUNT CARMEL HEALTH SYSTEMComment on above: Effective Jun 28, 2022 These [...] therapy that affects renal tubular secretion. Glucose [Mass/Vol]116 mg/xQEvjr53 - 99 mg/dLBON [facility] Interpretation and review of laboratory resultsAbnormLifePoint Hospitals Potassium [Moles/Vol]4.9 mmol/L3.7 - 5.3 mmol/LBON [facility]ALTH SYSTEMProtein [Mass/Vol]7.2 g/dL6.4 - 8.3 g/dLBON [facility]OUNT [facility] HEALTH SYSTEMSodium [Moles/Vol]139 mmol/L135 - 144 mmol/LBON [facility] HEALTH SYSTEMUrea nitrogen (BldV) [Mass/Vol]28 mg/dLHigh6 - 20 mg/dLBON SPEARFISH REGIONAL HOSPITALPOINT OF CARE GLUCOSEon 26-35-2661Fdxshgw [Mass/Vol]106 mg/wGXxjoqa78-115Wmg [facility] [place]Comment on above:Performed By: #### POCGLUC #### [facility] [place] Laboratory [address] [place] [address] [address] Chidi Quiroz LOWER EXTREMITY ARTERIAL SEGMENTAL PRESSURES W DEBBIEon 23-36-5483AlcjvspRuddy choi DO - 04/01/2022 [facility] Vascular Lower Arterial Plethysmography Procedure Patient Name TIMMY Date of Study 03/31/2022 VIRGIL Cooper Date of 1975 Gender Female Age 47 year(s) Race Room Number Corporate ID [id number] # Patient Acct [id number] # MR # [id number] Plastic And Reconstructive Surgeon Vicki Spicer RVT Interpreting Physician Ruddy Mallory DO Referring Referring Physician Vivian Lemos Nurse Practitioner Procedure Type of Study: Extremities [...] Diameters are measured in cm Pressures + ++--------+-----+----+--------+----- + ! !!Right ! !Left! ! ! + ++--------+-----+----+--------+----- + !Location !!Pressure!Ratio! !Pressure!Ratio! + ++--------+-----+----+--------+----- + !Ankle PT !!128 !0.96 ! !121 !0.9 ! + ++--------+-----+----+--------+----- + !Ankle DP !!126 !0.94 ! !117 !0.87 ! + ++--------+-----+----+--------+----- + !Great Toe !!114 !0.85 ! !107 !0.8 ! + ++--------+-----+----+--------+----- + - Brachial Pressure:Right: 134.Left:128. - MARY:Right: 0.96.Left: 0.9. Plethysmographic Digit Evaluation +---------++--------+-----+ ++--------+-----+ + ! !!Right ! !Left !! ! ! ! +---------++--------+-----+ ++--------+-----+ + !Location !!Pressure!Ratio!PPG Wave Form !!Pressure!Ratio!PPG Wave Form ! +---------++--------+-----+ ++--------+-----+ + !Great Toe!!114 !0.85 ! !!107 !0.8 ! ! +---------++--------+-----+ ++--------+-----+ +Sypherlink Phone: vl LOWER EXTREMITY ARTERIAL SEGMENTAL PRESSURES W PPG Ordered By: Ruddy Mallory on 93-05-9851BHY Metaboli Phone: vl LOWER EXTREMITY ARTERIAL SEGMENTAL PRESSURES W PPG on 20-99-0394Vevlhrbwm Study observation (narrative)BON Metaboli Phone: creatine Kinaseon 61-56-8699DD [Catalytic activity/Vol]274 U/FGvxu73-409NvtbvbefvDayton Va Medical CenterComment on above: Result Comment: PERFORMED BY: [place] [address] PATHOLOGIST BRANCH LIBRARY CLERK GRZEGORZ DUMONT M.D.Performed By: #### CK #### [facility] [address] [place] [address] [place] #### SJOGRENS #### [facility] ,Sjogrens Anti-SSA/SSBon 38-41-6667BR-A/Ro Sjogrens Antibody<0.2Jqqumo0.0-0.9 [facility] Va Medical CenterComment on above:Performed By: #### CK #### [facility] [address] [place] [address] [place] #### SJOGRENS #### [facility] ,SS-B/La Sjogrens Antibody<0.7Okogic5.0-0.9[facility] Comment on above:Result Comment: Performed at: [facility] [address] [id number] Take Down Inspector: Chandana Oliveros PhD, Phone: [phone] PERFORMED BY: [place] [address] PATHOLOGIST BRANCH LIBRARY CLERK GRZEGORZ DUMONT M.D.Performed By: #### CK #### [facility] [address] [place] [address] [place] #### SJOGRENS #### [facility] ,XR hand BI 2Von 44-21-1649HC hand BI 2[facility] [address] [place] [address] XRay Report Signed Patient: Virgil Warner MR#: [id number] 52 : 1975 Acct:[id number] Age/Sex: 47 / F ADM Date: 03/02/22 Loc: ICXD Room: Type: [facility] Attending Dr: Tyree Hidalgo MD Ordering Provider: [...] Edwin White M.D.03/02/2022 4:09 PM Dictation Location: [place] [address] Transcribed By: [facility] 03/02/22 1609 Dictated By: Edwin White DO 03/02/22 1608 Signed By: 03/02/22 1609NoVeterans Health Administration MARISOL DIGITAL SCREEN BILATERALOrdered By: Vivian Lemos on 84-95-1222Gm mammographic evidence of malignancy. BI-RADS 1 BIRADS: BIRADS - CATEGORY 1 Negative, no evidenceof malignancy. Normal interval follow-up is recommended in 12 months. OVERALL ASSESSMENT - NEGATIVEA letter of notification will be sent to the patient regarding the results. The [employer] recommends annual mammograms for women 40 years and older.Yatra Phone: eXAMINATION: SCREENING DIGITAL BILATERAL MAMMOGRAM WITH TOMOSYNTHESIS, 05/15/2021 TECHNIQUE: Screening mammography was performed with tomosynthesis including MLO and CC views of the bilateral breasts.Computer aided detection was used for the interpretation of this exam. COMPARISON: 03/12/2016 HISTORY: Screening. FINDINGS: The breast tissue is composed of scattered fibroglandular tissue. There is no suspicious mass, suspicious microcalcification, or area of architectural distortion.Yatra Phone: Yatra Phone: US FIBROSCANon 41-93-5474ZG FIBROSCANVelocity Controlled Transient Elastography (Fibroscan) Outside Machinist Supervisor: Ameena Crisostomo Attending: Leah Martins MD ? Patient was identified via name and . Virgil Warner presents to endoscopy suite for VCTE. [...] S2-3. Clinical correlation indicated Leah Martins MD [facility] Interpreted by: Leah Martins MD Signed by: Leah Martins MD 04/14/21 Final resultNoSwedish Medical CenterFerritinOrdered By: Claudia Willett on 62-94-9111Guxwmqtw457 ug/LHigh13 - 150 ug/LMercy Babelverse Work Phone: Iron and TIBCOrdered By: Claudia Willett on 03-12-2021 Iron [Mass/Vol]71 ug/dL37 - 145 ug/dLYatra Phone: Iron Bbvbzdtohs66 %Low20 - 55 %Yatra Phone: TIBC412 ug/dL250 - 450 ug/dLYatra Phone: UIBC341 ug/dL112 - 347 ug/dLKettering Health SpringfieldMetroFlats.com Phone: No Panel InformationOrdered By: Claudia Willett on 72-65-4876Bilvjkztlwlnyh and review of laboratory resultsAbnormalKettering Health SpringfieldMetroFlats.com Phone: [facility] BlueSnap Phone: cBCOrdered By: Claudia Willett on 61-15-7292Hxszuafwde (Bld) [Volume fraction]45.2 %36.3 - 47.1 %Yatra Phone: Hemoglobin.gastrointestinal spec 1 Ql (Stl)14.1 g/dL 11.9 - 15.1 g/dLKettering Health SpringfieldMetroFlats.com Phone: MCH (RBC) [Entitic mass]30.2 pg25.2 - 33.5 pgKettering Health SpringfieldMetroFlats.com Phone: MCHC (RBC) [Mass/Vol]31.2 g/dL28.4 - 34.8 g/dLKettering Health SpringfieldMetroFlats.com Phone: MCV (RBC) [Entitic vol]96.8 fL82.6 - 102.9 fLKettering Health SpringfieldMetroFlats.com Phone: NRBC Automated0.00.0 per 100 WBCKettering Health SpringfieldMetroFlats.com Phone: platelet distribution width (Bld) [Ratio]12.5 %11.8 - 14.4 %[place] [facility] East HospitalSiVerion Phone: platelet mean volume (Bld) [Entitic vol]9.0 fL8.1 - 13.5 [facility] Hospital - CantonMetroFlats.com Phone: platelets (Bld) [#/Vol]372 10*3/uLKettering Health SpringfieldMetroFlats.com Phone: RBC (Bld) [#/Vol]4.67 10*6/uL3.95 - 5.11 m/DeerfieldMetroFlats.com Phone: WBC (Bld) [#/Vol]7.5 10*3/uLKettering Health SpringfieldMetroFlats.com Phone: [facility] SpringfieldMetroFlats.com Phone: comprehensive Metabolic PanelOrdered By: Claudia Willett on 56-55-2516Rgcygqc [Mass/Vol]4.6 g/dL3.5 - 5.2 g/dLKettering Health SpringfieldMetroFlats.com Phone: Nlbumin/Globulin [Mass ratio]1.8 {ratio}[place] [facility] East HospitalSiVerion Phone: ZLP (Bld) [Catalytic activity/Vol]88 U/L35 - 104 U/L [place] [facility] HospitalSiVerion Phone: FLT [Catalytic activity/Vol]52 U/LHigh5 - 33 U/LMkettering health hamiltonSiVerion Phone: Xnion gap [Moles/Vol]12 mmol/L9 - 17 mmol/LMMideoMe Work Phone: YST [Catalytic activity/Vol]45 U/LHigh<32MerMetroFlats.com Phone: Zilirubin [Mass/Vol]0.32 mg/dL0.3 - 1.2 mg/dLKettering Health SpringfieldMetroFlats.com Phone: Falcium [Mass/Vol]9.8 mg/dL8.6 - 10.4 mg/dLKettering Health SpringfieldMetroFlats.com Phone: Thloride [Moles/Vol]102 mmol/L98 - 107 mmol/LMMideoMe Work Phone: [phone] [Moles/Vol]25 mmol/L20 - 31 mmol/LMercy Babelverse Work Phone: Areatinine [Mass/Vol]0.68 mg/dL0.50 - 0.90 mg/dLKettering Health SpringfieldMetroFlats.com Phone: Free PSA/Total PSA [Mass fraction]7.2 g/dL6.4 - 8.3 g/dLKettering Health SpringfieldMetroFlats.com Phone: GFR >60>60 mL/minKettering Health Dayton BlueSnap Phone: GFR Non->60>60 mL/minKettering Health Dayton Babel[employer] Work Phone: Glucose [Mass/Vol]231 mg/aFLpll32 - 99 mg/dLKettering Health [facility] BlueSnap Phone: Interpretation and review of laboratory results AbnormalKettering Health Dayton B[employer] Work Phone: potassium [Moles/Vol]4.7 mmol/L3.7 - 5.3 mmol/LMercy Babel[employer] Work Phone: sodium [Moles/Vol]139 mmol/L135 - 144 mmol/LMercy [employer]abel[employer] Work Phone: Urea nitrogen (BldV) [Mass/Vol]24 mg/dLHigh6 - 20 mg/dLKettering Health Dayton BlueSnap Phone: Urea nitrogen/Creatinine (Bld) [Mass ratio]35HighKettering Health Dayton Babelverse Work Phone: [facility] Blue[employer]ap Phone: Hepatitis B Core Antibody, TotalOrdered By: Claudia Willett on 63-55-3055Qpw B Core Total AbNon-ReactiveNONREACTIVEKettering Health Dayton BlueSnap Phone: Hepatitis B Surface AntigenOrdered By: Claudia Willett on 79-54-3309Pbagipzfz B Surface AgNon-ReactiveNONREACTIVEKettering Health Dayton Babel[employer] Work Phone: Hepatitis C AntibodyOrdered By: Claudia Willett on 15-79-8851Pzjmwmwgp C AbNon-ReactiveNONREACTIVEKettering Health SpringfieldMetroFlats.com Phone: comment on above: The hepatitis C procedure used [...] RNA by PCR. Laboratory - Chemistry and Chemistry - challengeOrdered By: Claudia Willett on 80-86-1130YGY/1.73 sq M.predicted MDRD (S/P/Bld) [Vol rate/Area]Yatra Phone: comment on above:Average GFR for 40-49 years old: 99 mL/min/1.73sq m Chronic Kidney Disease: <60 mL/min/1.73sq m Kidney failure: <15 mL/min/1.73sq m eGFR calculated using average adult body mass. Additional eGFR calculator available at: http://www.TapTalents/multiple_crcl_2012.htm Stage 1: Some kidney damage normal GFR Stage 2: Mild kidney damage GFR 60-89 Stage 3: Moderate kidney damage GFR 30-59 Stage 4: Severe kidney damage GFR 15-29 Stage 5: Severe kidney damage GFR <15 ESRD - chronic treatment by dialysis or transplant No Panel InformationOrdered By: Claudia Willett on 53-03-3786AwlikYatra Phone: Hepatic Function PanelOrdered By: Vivian Lemos on 02-86-3786Wgmrpuo [Mass/Vol]4.3 g/dL3.5 - 5.2 g/dLYatra Phone: albumin/Globulin [Mass ratio]1.3 {ratio}Yatra Phone: aLP (Bld) [Catalytic activity/Vol]102 U/L35 - 104 U/L Yatra Phone: aLT [Catalytic activity/Vol]34 U/LHigh5 - 33 U/LMkettering health hamiltonSiVerion Phone: aST [Catalytic activity/Vol]24 U/L<32Yatra Phone: bilirubin [Mass/Vol]0.24 mg/dLLow0.3 - 1.2 mg/dLYatra Phone: bilirubin, IndirectCANNOT BE CALCULATED0.00 - 1.00 mg/dLYatra Phone: bilirubin.indirect [Mass/Vol]mg/dL<0.31 mg/dLMercy Health Work Phone: Free PSA/Total PSA [Mass fraction]7.5 g/dL6.4 - 8.3 g/dLMercy Health Work Phone: GlobulinNOT REPORTED1.5 - 3.8 g/dLMercy Health Work Phone: Interpretation and review of laboratory results AbnormalMercy Health Work Phone: [facility] Work Phone: Urinalysis with MicroscopicOrdered By: Meghan León on 01-28-2021-[facility] Work Phone: amorphous, UANOT REPORTEDNoneMercy Health Work Phone: bacteria, UA2+AbnormalNoneMercy Health Work Phone: bilirubin UrineNegativeNEGATIVEMercy Health Work Phone: casts UANOT REPORTED/LPFMercy Health Work Phone: color, UAYELLOWYELLOWMercy Health Work Phone: crystals, UANOT REPORTEDNone /HPFMercy Health Work Phone: epithelial Cells UA2 TO 5[facility] Work Phone: Glucose, Ur1+AbnormalNEGATIVEKettering Health Springfieldcy Health Work Phone: Interpretation and review of laboratory results AbnormalMercy Health Work Phone: Ketones Ql (U)NegativeNEGATIVEMercy Health Work Phone: leukocyte esterase Test strip Ql (U)NegativeNEGATIVE [facility] Work Phone: Mucus, UANOT REPORTEDNoneMercy Health Work Phone: Nitrite, UrineNegativeNEGATIVEMercy Health Work Phone: Other Observations UANOT REPORTEDNOT REQ.[facility] Work Phone: pH, UA6.0[facility] Work Phone: protein, UANegativeNEGATIVEMercy Health Work Phone: rBC, UA0 TO 2[facility] Work Phone: renal Epithelial, UANOT REPORTED0 /HPFMercy Health Work Phone: specific [place], UA>1.030HighMercy Health Work Phone: Trichomonas, UANOT REPORTEDNoneMercy Health Work Phone: Turbidity UACLEARCLEARMercy Health Work Phone: Urinalysis CommentsNOT REPORTEDMercy Health Work Phone: Urine HgbNegativeNEGATIVEMercy Health Work Phone: Urobilinogen, UrineNormalNormalMercy Health Work Phone: WBC, UA0 TO 2[facility] Work Phone: Yeast, UANOT REPORTEDNoneMercy Health Work Phone: XR ABDOMEN (KUB) (SINGLE AP VIEW)Ordered By: Meghan León on 15-57-0220Pruwwmtkws of a very small calcification over the lower pole of the left kidney. Probable hepatomegaly. No evidence of obstructive bowel process.Yatra Phone: eXAMINATION: ONE SUPINE XRAY VIEW(S) OF THE ABDOMEN 01/27/2021 1:08 pm COMPARISON: Two-view plain film imaging of the abdomen January 25, 2020. HISTORY: ORDERING SYSTEM PROVIDED HISTORY: Renal stones TECHNOLOGIST PROVIDED HISTORY: renal stone FINDINGS: Nonobstructive bowel gas pattern. Some degenerative changes are present in the SI joints. Suggestion of a 2 mm diameter calcification over the lower poleof the left kidney. Bra clips are apparent. The liver appears enlarged. A Tens unit is present overthe thoracolumbar spine with battery pack over the left iliac wing.Yatra Phone: efrida cj Incoming Radiant Results From Kash/[employer] - 01/27/2021 1:29 PM EDT EXAMINATION: ONE [...] hepatomegaly. No evidence of obstructive bowel process. Yatra Phone: ct LUMBAR SPINE W CONTRASTOrdered By: Jasper Cleveland on 08-83-2149Bqzmaqm disc bulges at L4-5 and L5-S1. No significant focal disc protrusion or stenosis is appreciated. Spinal stimulator device.Yatra Phone: eXAMINATION: CT OF THE LUMBAR SPINE WITH CONTRAST, [...] TECHNOLOGIST PROVIDED HISTORY: Myelogram FINDINGS: BONES/ALIGNMENT: There isnormal alignment of the spine. The vertebral body [...] neural foraminal narrowing. L2-L3: There is no significantdisc protrusion, central spinal canal stenosis or neural foraminal narrowing. L3-L4: There is no significant disc protrusion, central spinal canal stenosis or neural foraminal narrowing. L4-L5: Shallow disc bulge flattens the thecal sac. Mild facet hypertrophy is noted. L5-S1: Annular disc bulge flattens the thecal sac. No significant focal disc protrusion is detected.[employer] Work Phone: efrida, [facility] Incoming Radiant Results From Kash/[employer] - 01/20/2021 3:43 PM EDT EXAMINATION: CT [...] or stenosis is appreciated. Spinal stimulator device. Yatra Phone: lipid Panelon 03-19-3957Dbjxedgijxx [Mass/Vol]127 mg/dL<200[place], KYComment on above: Cholesterol Guidelines: <200 Desirable 200-240 Borderline >240 Undesirable Cholesterol in HDL [Mass/Vol]28 mg/dLLow>40[place], KYComment on above: HDL Guidelines: <40 Undesirable 40-59 Borderline >59 Desirable Cholesterol in LDL [Mass/Vol]31 mg/dL0 - 130 mg/dLCharl[place], KYComment on above: LDL Guidelines: <100 Desirable 100-129 Near to/above Desirable 130-159 Borderline >159 Undesirable Direct (measured) LDL and calculated LDL are not interchangeable tests. Cholesterol in VLDL [Mass/Vol]NOT REPORTEDHigh1 - 30 mg/dLCharl[place], [place] Cholesterol.total/Cholesterol in HDL [Mass ratio]4.5 {ratio}<5[place], KYInterpretation and review of laboratory resultsAbnormalCharl[place], [place] Triglyceride [Mass/Vol]340 mg/dLHigh<150[place], KYComment on above: Triglyceride Guidelines: <150 Desirable 150-199 Borderline 200-499 High >499 Very high Based on AHA Guidelines for fasting triglyceride, June 2012. CT HEAD WO CONTRASTon 26-98-6558Ft acute intracranial abnormality.[place], KYEXAMINATION: CT OF THE HEAD WITHOUT CONTRAST 07/25/2020 11:38 am TECHNIQUE: CT of the head was performed without the administration of intravenous contrast. Dose modulation, iterative reconstruction,and/or weight based adjustment of the mA/kV was utilized to reduce the radiation dose to as low as reasonably achievable. COMPARISON: None. HISTORY: ORDERING SYSTEM PROVIDED HISTORY: Traumatic injuryof head, initial encounter TECHNOLOGIST PROVIDED HISTORY: pain Is the patient ?->No FINDINGS: BRAIN/VENTRICLES: There is no acute intracranial hemorrhage, mass effect or midline shift. No a bnormal extra-axial fluid collection. The conner-white differentiation is maintained without evidenceof an acute infarct. There is no evidence of hydrocephalus. ORBITS: The visualized portion of the orbits demonstrate no acute abnormality. SINUSES: The visualized paranasal sinuses and mastoid air cells demonstrate no acute abnormality. SOFT TISSUES/SKULL: No acute abnormality of the visualized skull or soft tissues.AverailBee cj Incoming Radiant Results From [employer] - 07/25/2020 12:02 PM EDT EXAMINATION: CT [...] soft tissues. IMPRESSION: No acute intracranial abnormality. TelepartnerXR ABDOMEN (KUB) (SINGLE AP VIEW)on . No renal or ureteral calculi identified. 2. Mild constipation.[place] EXAMINATION: ONE SUPINE XRAY VIEW(S) OF THE ABDOMEN 01/25/2020 1:52 pm COMPARISON: 03/25/2019 HISTORY:ORDERING SYSTEM PROVIDED HISTORY: Renal stones TECHNOLOGIST PROVIDED HISTORY: renal stone FINDINGS:Spinal canal stimulator device is in place. No additional lines or tubes. No renal or ureteral calculi identified. No gaseous distended loops of small bowel or air-fluid levels. No free air or pneumatosis. Mild gas and stool burden is seen throughout the colon and rectum. No acute osseous abnormality.AverailBee Mhcj Incoming Radiant Results From [employer] - 01/25/2020 10:09 PM EDT EXAMINATION: ONE [...] or ureteral calculi identified. 2. Mild constipation. [facility], MTC-Reactive Proteinon 17-88-5000MKW [Mass/Vol]2.8 mg/L0 - 5 mg/[facility], KYCKon 03-31-0060Beuhz CK107 U/L26 - 192 U/[facility], MTHemoglobin A1Con 74-86-3088Ilysgyx [Mass/Vol]263 mg/dLLima Memorial Hospital, [place] Comment on above:The ADA and AACC recommend providing the estimated average glucose result to permit better patient understanding of their HBA1c result. HbA1c (Bld) [Mass fraction]10.8 %High4.8 - 5.9 %[facility], [place] Interpretation and review of laboratory resultsAbnormalLima Memorial Hospital, KYIgAon 00-79-9763JvX [Mass/Vol]225 mg/dL70 - 400 mg/dLLima Memorial Hospital, KYIgGon 61-69-5157LmN [Mass/Vol]768 mg/dL700 - 1600 mg/dLLima [facility], KYIgMon 20-72-6452QwJ [Mass/Vol]97 mg/dL40 - 230 mg/dLLima [facility], MTLactate Dehydrogenaseon 90-41-1558XT004 U/L135 - 214 U/[facility], [place] Sedimentation Rateon 00-15-6289Jct Rate14 mm0 - 20 mmLima Memorial Hospital, KYT4on 33-30-1569V5, Total6.7 ug/dL4.5 - 12 ug/dLLima [facility], KYT4, Freeon 30-43-6669Azfkzydub, Free1.02 ng/dL0.93 - 1.7 ng/dLL[facility], MTTSH without Reflexon 92-48-8745VVZ Qn0.70 m[IU]/[facility], MTALTOrdered By: Flip Dodson on 46-00-6105IYH [Catalytic activity/Vol]26 U/L5 - 33 U/[facility] Work Phone: aSTOrdered By: Flip Dodson on 11-75-1164CUX [Catalytic activity/Vol]20 U/L<32MerHipvan Work Phone: amylaseOrdered By: Flip Dodson on 12-68-7746Mgzcwaa [Catalytic activity/Vol]45 U/L28 - 100 U/LMercy [employer] Work Phone: basic Metabolic PanelOrdered By: Flip Dodson on 27-30-9897Jcpdf gap [Moles/Vol]17 mmol/L9 - 17 mmol/LMercy Health Work Phone: bun/Cre Cpwba99DhzcBbkgk [employer] Work Phone: calcium [Mass/Vol]9.6 mg/dL8.6 - 10.4 mg/dLKettering Health Dayton [employer]abel[employer] Work Phone: chloride [Moles/Vol]96 mmol/LLow98 - 107 mmol/LMercy [employer] Work Phone: cO2 [Moles/Vol]22 mmol/L20 - 31 mmol/LMercy [employer] Work Phone: creatinine [Mass/Vol]0.63 mg/dL0.5 - 0.9 mg/dLKettering Health SpringfieldHipvan Work Phone: GFR >60>60 mL/minKettering Health SpringfieldHipvan Work Phone: GFR CommentKettering Health Dayton [employer]abel[employer] Work Phone: comment on above:Average GFR for 40-49 years old: 99 mL/min/1.73sq m Chronic Kidney Disease: <60 mL/min/1.73sq m Kidney failure: <15 mL/min/1.73sq m eGFR calculated using average adult body mass. Additional eGFR calculator available at: http://www.TapTalents/multiple_crcl_2012.htm GFR Non->60>60 mL/minKettering Health SpringfieldHipvan Work Phone: GFR [email or web address] Phone: comment on above:Stage 1: Some kidney damage normal GFR Stage 2: Mild kidney damage GFR 60-89 Stage 3: Moderate kidney damage GFR 30-59 Stage 4: Severe kidney damage GFR 15-29 Stage 5: Severe kidney damage GFR <15 ESRD - chronic treatment by dialysis or transplant Glucose [Mass/Vol]389 mg/vRYtdj81 - 99 mg/dLKettering Health SpringfieldMetroFlats.com Phone: Interpretation and review of laboratory results AbnormalKettering Health SpringfieldMetroFlats.com Phone: potassium [Moles/Vol]4.4 mmol/L3.7 - 5.3 mmol/LMkettering health hamiltonRosetta Genomics Work Phone: sodium [Moles/Vol]135 mmol/L135 - 144 mmol/LMkettering health hamiltony [employer] Phone: Urea nitrogen [Mass/Vol]16 mg/dL6 - 20 mg/dLKettering Health SpringfieldMetroFlats.com Phone: cBC Auto DifferentialOrdered By: Flip Dodson on 32-26-4937Fterddah Eos #0.24[facility] SpringfieldMetroFlats.com Phone: absolute Immature Granulocyte0.10[facility] SpringfieldMetroFlats.com Phone: absolute Lymph #3.09[facility] SpringfieldMetroFlats.com Phone: absolute Gila #0.50[facility] SpringfieldMetroFlats.com Phone: basophils (Bld) [#/Vol]0.09 10*3/uLKettering Health SpringfieldMetroFlats.com Phone: basophils/100 WBC (Bld)1 %0 - 2 %Yatra Phone: differential TypeNOT REPORTEDKettering Health SpringfieldMetroFlats.com Phone: eosinophils/100 WBC (Bld)3 %1 - 4 %Yatra Phone: erythrocyte distribution width (RBC) [Ratio]11.7 %Low 11.8 - 14.4 %Yatra Phone: Hematocrit (Bld) [Volume fraction]45.7 %36.3 - 47.1 % Yatra Phone: Hemoglobin (Bld) [Mass/Vol]14.4 g/dL11.9 - 15.1 g/dL [facility] HospitalSiVerion Phone: Immature granulocytes/100 WBC (Bld)1 %Qssu8GgqimMetroFlats.com Phone: Interpretation and review of laboratory results AbnormalKettering Health SpringfieldMetroFlats.com Phone: lymphocytes/100 WBC (Bld)39 %24 - 43 %Yatra Phone: MCH (RBC) [Entitic mass]30.4 pg25.2 - 33.5 pgKettering Health SpringfieldMetroFlats.com Phone: MCHC (RBC) [Mass/Vol]31.5 g/dL28.4 - 34.8 g/dLKettering Health SpringfieldMetroFlats.com Phone: MCV (RBC) [Entitic vol]96.4 fL82.6 - 102.9 fLKettering Health SpringfieldMetroFlats.com Phone: Monocytes/100 WBC (Bld)6 %3 - 12 %Yatra Phone: NRBC Automated0.00.0 per 100 WBCKettering Health SpringfieldMetroFlats.com Phone: platelet EstimateNOT REPORTEDKettering Health SpringfieldMetroFlats.com Phone: platelet mean volume (Bld) [Entitic vol]9.1 fL8.1 - 13.5 fLKettering Health SpringfieldMetroFlats.com Phone: Platelets (Bld) [#/Vol]388 10*3/uLKettering Health SpringfieldMetroFlats.com Phone: RBC (Bld) [#/Vol]4.74 10*6/uL3.95 - 5.11 m/DeerfieldMetroFlats.com Phone: rBC morphology finding Nom (Bld)NOT REPORTEDYatra Phone: segmented neutrophils/100 WBC (Bld)50 %36 - 65 %Yatra Phone: segs Absolute4.00Yatra Phone: WBC (Bld) [#/Vol]8.0 10*3/uLKettering Health SpringfieldMetroFlats.com Phone: WBC MorphologyNOT REPORTEDYatra Phone: lipaseOrdered By: Flip Dodson on 45-34-7915Qqrmor [Catalytic activity/Vol]35 U/L13 - 60 U/LMercSiVerion Phone: US GALLBLADDER RUQOrdered By: Flip Dodson on 00-83-1151Ah acute abnormality. Fatty liver.Yatra Phone: eXAMINATION: RIGHT UPPER QUADRANT ULTRASOUND 10/18/2019 12:58 pm COMPARISON: CT abdomen pelvis with contrast 07/30/2019 HISTORY: ORDERING SYSTEM PROVIDED HISTORY: Right upper quadrant abdominal pain TE CHNOLOGIST PROVIDED HISTORY: right upper quadrant pain after [...] OTHER: No evidence of right upper quadrant ascites.Yatra Phone: edi, cj Incoming Radiant Results From [employer] - 10/18/2019 2:07 PM EST EXAMINATION: RIGHT [...] ascites. IMPRESSION: No acute abnormality. Fatty liver. Yatra Phone: eKG 12 LeadOrdered By: Jasper Cleveland on 21-82-2222Bgxmua Bfmh52MAYZiavuSpontly Phone: T Isty18imybrwtNlshvPowerset Phone: p-R Sfhfiswt196 [employer] Phone: Q-T Lcvjpgqw767 [employer] Phone: QRS Wsitfoqh97 [employer] Phone: QTc Calculation (Bazett)477 [employer]ell[employer] Phone: R Twvu64jspsfegHfawzPowerset Phone: T Arzm47ayzttioJesctPowerset Phone: Ventricular Qxsv44YYZNnzyfSpontly Phone: Normal sinus rhythm Normal ECG When compared with ECG of 26-MAR-2019 16:56, No significant change was found Confirmed by SHARON VARGAS ([id number]) on 10/03/2019 10:54:07 PMYatra Phone: edi, [facility] Incoming Ekg Results From [email or web address] - 10/03/2019 10:54 PM EST Normal sinus rhythm Normal ECG When compared with ECG of 26-MAR-2019 16:56, No significant change was found Confirmed by SHARON VARGAS ([id number]) on 10/03/2019 10:54:07 PMYatra Phone: Otheron 42-86-6015Bbgiyrus suggest gastroparesis for solid materials.Chrends Biocrates Life SciencesTIENEXAMINATION: NUCLEAR MEDICINE GASTRIC EMPTYING STUDY 08/22/2019 11:54 am TECHNIQUE: Following ingestion of a standard solid meal labeled with 1.0 mCi Tc 99m sulfur colloid, planar images of the chestand abdomen were obtained at 0, 1, 2 and 4 hours in both anterior and posterior projections. Regions of interest were drawn around the stomach and geometric means were calculated. All medications capable of altering motility were held. COMPARISON: None. HISTORY: ORDERING SYSTEM PROVIDED HISTORY: Gen eralized abdominal pain TECHNOLOGIST PROVIDED HISTORY: Is the patient ?- >No Reason for Exam: Generalized abdominal pain Acuity: Unknown Type of Exam: Unknown FINDINGS: The gastric emptyingwere calculated as follows: At 60 min, there is 36% emptying of the stomach. (Normal range is 10-30%) At 120 min, there is 60% emptying of the stomach. (Normal is >40%) At 240 min, there is 77% emp tying of the stomach. (Normal is >90%) Gastric emptying half time of 131 minutes. No significantesophageal retention, hiatal hernia or reflux was observed.[facility] HospitalBee Mhpn Incoming Radiant Results From Kash/Arthro[employer] - 08/24/2019 10:08 AM EST EXAMINATION: NUCLEAR [...] IMPRESSION: Findings suggest gastroparesis for solid materials. [facility] HospitalEMELINA HEAD NECK SOFT TISSUE THYROIDon 08-03-20191.3 cm TR 4 right thyroid nodule for [...] no more than four nodules should be followed.[facility] HospitalTIENEXAMINATION: THYROID ULTRASOUND 08/03/2019 COMPARISON: None available HISTORY: ORDERING SYSTEM PROVIDED HISTORY: Thyromegaly FINDINGS: Right thyroid lobe: 24.5 x 17.4 x 58.9 mm Left thyroid lobe: 17.0x 17.0 x 49.0 mm Isthmus: 4.4 mm Thyroid Gland: Thyroid gland is somewhat heterogeneous with normalvascularity. The right lobe is larger than the left. Nodules: NODULE: Right 1 Size: 12.6 x 8.3 x 11.7 mm Location: Right superior 1. Composition: Almost completely solid (2) 2. Echogenicity: Hypoechoic (2) 3. Shape: Tucbq-jtqk-wqmc (0) 4. Margins: Smooth (0) 5. Echogenic foci: None (0) ACR TI-RADS total points: 4 ACR TI-RADS risk category: TR4 Prior biopsy: Unknown. Cervical lymphadenopathy: No abnormal lymph nodes in the imaged portions of the neck.[facility] HospitalBee Mhpn Incoming Radiant Results From [employer] - 08/03/2019 3:19 PM EST EXAMINATION: THYROID [...] (2) 2. Echogenicity: Hypoechoic (2) 3. Shape: Elgkh-iqon-uvcx (0) 4. Margins: Smooth (0) 5. Echogenic [...] more than four nodules should be followed. [facility] HospitalRosetta GenomicsGOLD[facility], TIENCT ABDOMEN PELVIS W IV CONTRAST Additional Contrast? Oralon . No acute inflammatory process identified. 2. Bilateral punctate nephrolithiasis. 3. Hepatomegalywith steatosis.[facility] BabelverseGOLD[facility]LEY [facility], KYEXAMINATION: CT OF THE ABDOMEN AND PELVIS WITH [...] Pelvis: No acute findings. Status post hysterectomy. Peritoneum/Retroperitoneum: No free air or free fluid. The aorta is normal in caliber. The visceral branches are patent. No lymphadenopathy. Bones/Soft Tissues: Implanted thoracic neurostimulator. No acute osseous abnormality identified.[facility] HospitalAsia Bioenergy Technologies Berhad Jackson HospitalBee Jarad Incoming Radiant Results From [employer] - 07/30/2019 3:42 PM EST EXAMINATION: CT [...] Pelvis: No acute findings. Status post hysterectomy. Peritoneum/Retroperitoneum: No free air or free fluid. The aorta is normal in caliber. The visceral branches are patent. No lymphadenopathy. Bones/Soft Tissues: Implanted thoracic neurostimulator. No acute osseous abnormality identified. IMPRESSION: 1. No acute inflammatory process identified. 2. Bilateral punctate nephrolithiasis. 3. Hepatomegaly with steatosis. [facility], MTCBC Auto Differentialon [id number] (Bld) [#/Vol] 0.06 10*3/[facility], [place], KYBasophils/100 WBC (Bld)1 %0 - 2 %[facility], KYDifferential TypeNOT REPORTEDLima Memorial Hospital, KYEosinophils (Bld) [#/Vol] 0.33 10*3/[facility] [place], KYEosinophils/100 WBC (Bld)4 %1 - 4 %[facility], KYErythrocyte distribution width (RBC) [Ratio]12.1 %11.8 - 14.4 %[facility], KYHematocrit (Bld) [Volume fraction]45.8 %36.3 - 47.1 %[facility], KYHemoglobin (Bld) [Mass/Vol]14.6 g/dL11.9 - 15.1 g/dLLima [facility] Hospital, [place] Immature granulocytes (Bld) [#/Vol]0.12 10*3/uLOhiohealth [facility] Center- [place], TIENImmature granulocytes (Bld) [#/Vol]1 %Jmil2HhtjcLima [facility] Hospital, TIENInterpretation and review of laboratory resultsAbnormalLima [facility] Hospital, TIENLymphocytes (Bld) [#/Vol]3.67 10*3/uLOhiohealth Grant Medical Center- [place], TIENLymphocytes/100 WBC (Bld)42 %24 - 43 %[facility], TIENH (RBC) [Entitic mass]30.3 pg25.2 - 33.5 pgLima [facility] Hospital, MTMCHC (RBC) [Mass/Vol]31.9 g/dL28.4 - 34.8 g/dLOhiohealth Grant Medical Center- [place], TIENMCV (RBC) [Entitic vol]95.0 fL82.6 - 102.9 fLLima [facility] Hospital, TIENMonocytes (Bld) [#/Vol]0.66 10*3/[facility] [place], TIENMonocytes/100 WBC (Bld)8 %3 - 12 %[facility], MTPlatelet mean volume (Bld) [Entitic vol]9.1 fL8.1 - 13.5 fLLima [facility] Hospital, KYPlatelets (Bld) [#/Vol]NOT REPORTEDL[facility] Hospital, KYPlatelets (Bld) [#/Vol] 406 10*3/uLOhiohealth Grant Medical Center- [place], MTRBC (Bld) [#/Vol]4.82 10*6/uL3.95 - 5.11 m/uL [facility], MTRBC morphology finding Nom (Bld)NOT REPORTEDL[facility] Hospital, TIENSegmented neutrophils/100 WBC (Bld)44 %36 - 65 %[facility], TIENSegs Absolute3.94[facility]- [place], KYWBC (Bld) [#/Vol]8.8 10*3/uLOhiohealth Grant Medical Center- [place], [place] WBC (Bld) [#/Vol]0.0 10*3/uL0.0 per 100 WBCLima Memorial Hospital, MTWBC MorphologyNOT REPORTEDOhiohealth Grant Medical Center- [place], KYComprehensive Metabolic Panelon 13-02-9866Mbutqiy [Mass/Vol]4.3 g/dL3.5 - 5.2 g/dLOhiohealth Grant Medical Center- [place], KYAlbumin/Globulin [Mass ratio]1.2 {ratio}[facility]- [place], KYALP [Catalytic activity/Vol]85 U/L35 - 104 U/LMCleveland Clinic [place] [facility]- [place], KYALT [Catalytic activity/Vol]30 U/L5 - 33 U/LMpomerene hospital Health- [place], KYAnion gap [Moles/Vol]14 mmol/L9 - 17 mmol/LMpomerene hospital Health- [place], KYAST [Catalytic activity/Vol]23 U/L<32[facility]- [place], KYBilirubin Ql (U)0.21 mg/dL Low0.3 - 1.2 mg/dLOhiohealth Grant Medical Center- [place], KYBun/Cre Faimm25QukpEhwqm Health- [place], [place] Calcium [Mass/Vol]9.9 mg/dL8.6 - 10.4 mg/dLLima [facility] Hospital, KYChloride [Moles/Vol]98 mmol/L98 - 107 mmol/[facility]- [place], KYCO2 [Moles/Vol]24 mmol/L 20 - 31 mmol/LMCleveland Clinic [place] [facility]- [place], KYCreatinine [Mass/Vol]0.63 mg/dL0.5 - 0.9 mg/dL [facility], KYGFR >60>60 mL/minLima Memorial Hospital, KYGFR Non->60>60 mL/minLima [facility] Hospital, KYGlucose [Mass/Vol]328 mg/dL High70 - 99 mg/dLLima [facility], KYInterpretation and review of laboratory resultsAbnormalLima [facility] Hospital, KYPotassium [Moles/Vol]4.9 mmol/L3.7 - 5.3 mmol/LMCleveland Clinic [place] [facility]- [place], KYProtein [Mass/Vol]7.8 g/dL6.4 - 8.3 g/dLL[facility], KYSodium [Moles/Vol]136 mmol/L135 - 144 mmol/LMCleveland Clinic [place] [facility]- [place], KYUrea nitrogen [Mass/Vol]16 mg/dL6 - 20 mg/dLLima [facility] Hospital, KYHemoglobin A1Con 18-94-4404Yprzoqe [Mass/Vol]260 mg/dLL[facility], TIENComment on above:The ADA and AACC recommend providing the estimated average glucose result to permit better patient understanding of their HBA1c result. HbA1c (Bld) [Mass fraction]10.7 %High4.8 - 5.9 %[facility], [place] Interpretation and review of laboratory resultsAbnoUniversity Hospitals Geauga Medical Center, [place] Lipaseon 41-22-6318Zjxtmm [Catalytic activity/Vol]36 U/L13 - 60 U/[facility], MTMetabolic Panelon 32-88-1672XUC/1.73 sq M predicted among non-blacks MDRD (S/P/Bld) [Vol rate/Area][facility] MTComyayo on above:Stage 1: Some kidney damage normal GFR Stage 2: Mild kidney damage GFR 60-89 Stage 3: Moderate kidney damage GFR 30-59 Stage 4: Severe kidney damage GFR 15-29 Stage 5: Severe kidney damage GFR <15 ESRD - chronic treatment by dialysis or transplant Average GFR for 40-49 years old: 99 mL/min/1.73sq m Chronic Kidney Disease: <60 mL/min/1.73sq m Kidney failure: <15 mL/min/1.73sq m eGFR calculated using average adult body mass. Additional eGFR calculator available at: http://www.TapTalents/multiple_crcl_2012.htm Glucose, Fastingon 12-89-0569Qxihbfu [Mass/Vol]152 mg/nWVazw38 - 99 mg/dLLima [facility], MTInterpretation and review of laboratory resultsAbnoUniversity Hospitals Geauga [facility] Center, MTBasic Metabolic Panelon 01-57-9577Kwarg gap [Moles/Vol]17 mmol/L9 - 17 mmol/LMBellevue Hospital, KYBun/Cre Qiacy20LkndqLima Memorial Hospital, KYCalcium [Mass/Vol]9.7 mg/dL8.6 - 10.4 mg/dLL[facility], KYChloride [Moles/Vol]96 mmol/LLow98 - [address], KYCO2 [Moles/Vol]22 mmol/L20 - 31 mmol/LMBellevue Hospital, KYCreatinine [Mass/Vol]0.65 mg/dL0.5 - 0.9 mg/dLL[facility], KYGFR >60>60 mL/minLima Memorial Hospital, KYGFR Non- >60>60 mL/minLima [facility] Hospital, KYGlucose [Mass/Vol]310 mg/dLHigh 70 - 99 mg/dLL[facility], MTInterpretation and review of laboratory results AbnormalL[facility] Hospital, KYPotassium [Moles/Vol]4.4 mmol/L3.7 - 5.3 mmol/LMBellevue Hospital, KYSodium [Moles/Vol]135 mmol/L135 - 144 mmol/LMBellevue Hospital, [place] Urea nitrogen [Mass/Vol]12 mg/dL6 - 20 mg/dLL[facility], MTHemoglobin A1Con 11-22-4032Trffxke [Mass/Vol]263 mg/dLL[facility], MTComment on above:The ADA and AACC recommend providing the estimated average glucose result to permit better patient understanding of their HBA1c result. HbA1c (Bld) [Mass fraction]10.8 %High4.8 - 5.9 %[facility], [place] Interpretation and review of laboratory resultsAbnormalLima Memorial Hospital, MTLDL Cholesterol, Directon 84-08-3550Cecrznsvwue in LDL [Mass/Vol]64 mg/dL<100[facility], MTComment on above: LDL Guidelines: <100 Desirable 100-129 Near to/above Desirable 130-159 Borderline >159 Undesirable Direct (measured) LDL and calculated LDL are not interchangeable tests. Lipid Panelon 72-03-2454Zuefqyslvmb [Mass/Vol]166 mg/dL<200[facility], [place] Comment on above: Cholesterol Guidelines: <200 Desirable 200-240 Borderline >240 Undesirable Cholesterol in HDL [Mass/Vol]28 mg/dLLow>40[facility], MTComment on above: HDL Guidelines: <40 Undesirable 40-59 Borderline >59 Desirable Cholesterol in LDL [Mass/Vol]0 - 130 mg/dLLima [facility] Hospital, MTComment on above: Calculation not valid for Triglyceride value greater than 400 mg/dL. Direct LDL reflexed LDL Guidelines: <100 Desirable 100-129 Near to/above Desirable 130-159 Borderline >159 Undesirable Direct (measured) LDL and calculated LDL are not interchangeable tests. Cholesterol in VLDL [Mass/Vol]1 - 30 mg/dLCharl[place], [place] Cholesterol.total/Cholesterol in HDL [Mass ratio]5.9 {ratio}High<5[place], KYInterpretation and review of laboratory resultsAbnormalCharl[place], KYTriglyceride [Mass/Vol]665 mg/dLHigh<150[place], KYComment on above: Triglyceride Guidelines: <150 Desirable 150-199 Borderline 200-499 High >499 Very high Based on AHA Guidelines for fasting triglyceride, June 2012. Metabolic Panelon 41-41-2357EPX/1.73 sq M predicted among non-blacks MDRD (S/P/Bld) [Vol rate/Area][place], KYComment on above:Average GFR for 40-49 years old: 99 mL/min/1.73sq m Chronic Kidney Disease: <60 mL/min/1.73sq m Kidney failure: <15 mL/min/1.73sq m eGFR calculated using average adult body mass. Additional eGFR calculator available at: http://www.TapTalents/multiple_crcl_2012.htm Stage 1: Some kidney damage normal GFR Stage 2: Mild kidney damage GFR 60-89 Stage 3: Moderate kidney damage GFR 30-59 Stage 4: Severe kidney damage GFR 15-29 Stage 5: Severe kidney damage GFR <15 ESRD - chronic treatment by dialysis or transplant Vital Signs Date TimeVital SignValuePerforming GzftrmitzOvjtpssu19-87-4650 14:30-0500Body piobbwonsld06.59 [degF][address]11-07-2025 14:30-0500 Diastolic blood zkvpexfj87 mm[Hg][address]11-07-2025 14:30-0500Heart rate77 /minMth [address] [place], [place] 4466611-07-2025 14:30-0500 Respiratory rate18 /minMth [address] [place], [place] 4466611-07-2025 14:30-0500 Systolic blood slagleca947 mm[Hg][address]10-30-2025 14:04-0400Body tahbssowagi33.69 [degF][facility] 03[facility]10-30-2025 14:04-0400Diastolic blood wiodqjjt10 mm[Hg][facility] 03[facility] 07-25-2025 14:04-0400Heart rate86 /minMth 03[facility]10-30-2025 14:04-0400Respiratory rate18 /minMth 03[facility]10-30-2025 14:04-0400Systolic blood akoqjbte674 mm[Hg][facility] 03[facility] 07-23-2025 09:30-0400Diastolic blood yzehzxri32 mm[Hg]Florida Everett MD Work Phone: [facility]10-28-2025 09:30-0400Heart rate88 /minThomas Karlos MULLEN Work Phone: [facility]10-28-2025 09:30-0400 Respiratory rate17 /minRosalioomas Karlos MULLEN Work Phone: [facility]10-28-2025 09:30-0805GuE5% (BldA) [Mass fraction]94 %Florida Everett MD Work Phone: [facility]10-28-2025 09:30-0400Systolic blood bmckzewt271 mm[Hg]Florida Everett MD Work Phone: [facility]10-28-2025 09:07-0400Body xplnhkmjpej46 [degF]Florida Everett MD Work Phone: [facility]10-28-2025 06:33-0400Body .6 Trey Everett MD Work Phone: [facility]10-28-2025 06:33-0400Body mass index (BMI) [Ratio]36.74 kg/m4UhmtvkFlorida Everett MD Work Phone: [facility]10-28-2025 06:33-0400Body ryyhoz003.24 kgThanalia Everett MD Work Phone: [facility]10-22-2025 13:35-0400Body hcpxffsycit53.8 [degF][address]10-22-2025 13:35-0400 Diastolic blood miorheta85 mm[Hg][address]10-22-2025 13:35-0400Heart rate94 /minMth [address] [place], [place] 4466610-22-2025 13:35-0400 Respiratory rate20 /minMth [address] [place], [place] 4466610-22-2025 13:35-0400 Systolic blood fzyigcev154 mm[Hg][address]09-29-2025 12:15-0400Body .64 [facility] 12:15-0400Body mass index (BMI) [Ratio]37.1 kg/x6BdgorlhgaDayton Va Medical Center09-29-2025 12:15-0400Body delpbf835.32 [facility] 06-19-2025 13:32-0400Body lfgorqbhbqb22 [degF][address] 06-19-2025 13:32-0400Diastolic blood ydzfkwan37 mm[Hg][address]09-24-2025 13:32-0400Heart rate87 /minMth [address] [place] [address] 06-19-2025 13:32-0400Respiratory rate18 /minMth [address] [place] [address] 06-19-2025 13:32-0400Systolic blood mm[Hg][address]09-17-2025 13:44-0400Body ujzjfigvnze19.59 [degF][address]09-17-2025 13:44-0400Diastolic blood gukpuxqf92 mm[Hg][address]09-17-2025 13:44-0400Heart rate88 /minMth [address] [place] [address] 06-12-2025 13:44-0400Respiratory rate18 /minMth [address] [place] [address] 06-12-2025 13:44-0400Systolic blood spjbwurh808 mm[Hg][facility]09-05-2025 09:12-0400Heart rate86 /Rose Jhaveri MD Work Phone: [facility]09-05-2025 09:12-0400 Respiratory rate16 /Rose Jhaveri MD Work Phone: [facility]09-05-2025 09:12-0217DmF0% (BldA) [Mass fraction]94 %Inder Jhaveri MD Work Phone: [phone]09-05-2025 06:47-0400Body xitxaokmxtw99.91 [degF]Inder Jhaveri MD Work Phone: [facility] Lgozns25-64-2205 06:47-0400Diastolic blood usdenxab96 mm[Hg]Inder Jhaveri MD Work Phone: [facility]09-05-2025 06:47-0400Systolic blood mm[Hg]Inder Jhaveri MD Work Phone: [facility]09-05-2025 05:26-0400Body eyzadw551.6 Christel Jhaveri MD Work Phone: [facility] Hnckft25-12-1427 05:15-0400Body mass index (BMI) [Ratio]38.14 kg/x0VjielueedInder Jhaveri MD Work Phone: [facility] Mxjjjz99-49-2329 05:15-0400Body wqskto377.19 kgInder Jhaveri MD Work Phone: [facility] Oasomq16-84-5681 13:25-0400Body ggdcdakaqqd42.59 [degF][facility]08-28-2025 13:25-0400 Diastolic blood smrykyvg08 mm[Hg][facility] Kphtbt62-11-4779 13:25-0400Heart rate81 /minMth 03Bon [facility] CenterKsuxqe06-69-2042 13:25-0400 Respiratory rate18 /minMth 03Bon Seckrystal [facility] CenterYqnxtf42-62-7896 13:25-0400 Systolic blood ttkirxmm598 mm[Hg][facility] 03Bon Seckrystal [facility] CenterQvdxuo46-42-1065 14:23-0400Body gybhgruyueb59.49 [degF][facility] 03Bon Seckrystal [facility] CenterRknzdf25-06-8817 14:23-0400Diastolic blood nmubbuzi87 mm[Hg][facility] 03Bon [facility] 05-16-2025 14:23-0400Heart aoei641 /minMth 03Bon Seckrystal [facility] CenterDljiwn82-23-4340 14:23-0400Respiratory rate20 /minMth 03Bon [facility] Centerk[facility] CenterPxqbjb21-82-6351 14:23-0400Systolic blood nufxouis128 mm[Hg][facility] 03Bon [facility] [employer] 05-09-2025 14:20-0400Body puwflfoztzq57.59 [degF][facility] 03Bon [facility] 05-09-2025 14:20-0400Diastolic blood diicifsx72 mm[Hg][facility] 03Bon [facility]08-14-2025 14:20-0400Heart rate94 /minMth 03Bon [facility] 05-09-2025 14:20-0400Respiratory rate18 /minMth 03Bon [facility] 05-09-2025 14:20-0400Systolic blood ocprerix039 mm[Hg][facility] 03Bon [facility]08-07-2025 14:35-0400Body cmutzlgepug43.9 [degF][facility] 03Bon [facility]08-07-2025 14:35-0400Diastolic blood feoycteo14 mm[Hg][facility] 03Bon [facility]08-07-2025 14:35-0400Heart rate84 /minMth 03Bon [facility] [employer] 05-02-2025 14:35-0400Respiratory rate18 /minMth 03Bon [facility] [employer] 05-02-2025 14:35-0400Systolic blood mm[Hg][facility] 03Bon [facility]08-04-2025 13:03-0400Body pjihplexqfk52.81 [degF][facility] 03Bon [facility] Centerk[facility] CenterMhisfw25-44-6147 13:03-0400Diastolic blood vkxwkncu72 mm[Hg]Mth 03Bon [facility]08-04-2025 13:03-0400Heart rate80 /minMth 03Bon [facility] 04-29-2025 13:03-0400Respiratory rate20 /minMth 03Bon [facility] 04-29-2025 13:03-0400Systolic blood kzltbbuo110 mm[Hg][facility] 03Bon [facility]07-31-2025 15:05-0400Body msgscwlurxu07.11 [degF][facility] 03Bon [facility]07-31-2025 15:05-0400Diastolic blood ooomscyt38 mm[Hg][facility] 03Bon [facility]07-31-2025 15:05-0400Heart rate93 /minMth 03Bon [facility] 04-25-2025 15:05-0400Respiratory rate18 /minMth 03Bon [facility] 04-25-2025 15:05-0400Systolic blood ijsxpmlk519 mm[Hg][facility] 03Bon [facility]07-28-2025 15:13-0400Body zgckuhpuzaq24.91 [degF][facility] 03Bon [facility]07-28-2025 15:13-0400Diastolic blood ucixcfdw35 mm[Hg][facility] 03Bon [facility]07-28-2025 15:13-0400Heart rate88 /minMth 03Bon [facility] 04-22-2025 15:13-0400Respiratory rate18 /minMth 03Bon [facility] 04-22-2025 15:13-0400Systolic blood zebjaxzf30 mm[Hg][facility] 03Bon [facility]07-24-2025 14:59-0400Body mffyrjfsjvf80.01 [degF][facility] 03Bon [facility]07-24-2025 14:59-0400Diastolic blood saabfvak09 mm[Hg][facility] 03Bon [facility]07-24-2025 14:59-0400Heart rate90 /minMth 03Bon [facility] 04-18-2025 14:59-0400Respiratory rate16 /minMth 03Bon [facility] 04-18-2025 14:59-0400Systolic blood dutotdzy237 mm[Hg][facility] 03Bon [facility]07-21-2025 15:02-0400Body qlbrurhcnpq15.49 [degF][facility] 03Bon [facility]07-21-2025 15:02-0400Diastolic blood uqjisyvl97 mm[Hg][facility] 03Bon [facility]07-21-2025 15:02-0400Heart rate95 /minMth 03[facility] 04-15-2025 15:02-0400Respiratory rate18 /minMth 03Bon [facility] 04-15-2025 15:02-0400Systolic blood mm[Hg][facility] 03[facility]07-17-2025 14:45-0400Body ycpcxlkghzr72 [degF][facility] 03Bon [facility]07-17-2025 14:45-0400Diastolic blood bwrrbawj55 mm[Hg][facility] 03[facility]07-17-2025 14:45-0400Heart rate87 /minMth 03[facility] 04-11-2025 14:45-0400Respiratory rate18 /minMth 03[facility] 04-11-2025 14:45-0400Systolic blood ijbpqeab101 mm[Hg][facility] 03[facility]12-21-2024 16:13-0500Body woxyubrmfla91.2 [degF]Meera Mike DPM Work Phone: [facility]12-21-2024 16:13-0500Diastolic blood maumleeu36 mm[Hg]Meera Mike DPM Work Phone: [facility]12-21-2024 16:13-0500Heart rate87 /minMeera Mike DPM Work Phone: [facility]12-21-2024 16:13-0500 Respiratory rate16 /minMeera Mike DPM Work Phone: [facility]12-21-2024 16:13-0815YiG7% (BldA) [Mass fraction]92 %Meera Mike DPM Work Phone: [facility]12-21-2024 16:13-0500Systolic blood ndtzzflo924 mm[Hg]Meera Mike DPM Work Phone: [facility]12-20-2024 06:26-0500Body ogsxkn201.6 cmMeera Mike DPM Work Phone: [facility]12-20-2024 06:26-0500Body mass index (BMI) [Ratio]34.72 kg/g3LryqoMeera Mike DPM Work Phone: [facility]12-20-2024 06:26-0500Body vvaijh93.52 kgMeera Mike DPM Work Phone: [facility]12-13-2024 13:04-0500Body vtsneg008.6 cmMeera Mike DPM Work Phone: [facility]12-13-2024 13:04-0500Body mass index (BMI) [Ratio]34.7 kg/e6XivqhMeera Mike DPM Work Phone: [facility]12-13-2024 13:04-0500Body rbtnqjoluro70.61 [degF]Meera Mike DPM Work Phone: [facility]12-13-2024 13:04-0500Body .52 kgMeera Mike DPM Work Phone: [facility]12-13-2024 13:04-0500Diastolic blood srczaoqn52 mm[Hg]Meera Mike DPM Work Phone: [facility]12-13-2024 13:04-0500Heart rate94 /minMeera Mike DPM Work Phone: [facility]12-13-2024 13:04-0500 Respiratory rate18 /minMeera Mike DPM Work Phone: [facility]12-13-2024 13:04-0249CuS6% (BldA) [Mass fraction]96 %Meera Mike DPM Work Phone: [facility]12-13-2024 13:04-0500Systolic blood boxbobsw130 mm[Hg]Meera Mike DPM Work Phone: [facility]10-31-2024 16:00-0400 Respiratory rate14 /minMeera Mike DPM Work Phone: [facility]10-31-2024 07:07-0400Body fvbdxzophrf19.7 [degF]Meera Mike DPM Work Phone: [facility]10-31-2024 07:07-0400Diastolic blood sjbrgcbu53 mm[Hg]Meera Mike DPM Work Phone: [facility]10-31-2024 07:07-0400Heart rate92 /minMeera Mike DPM Work Phone: [facility]10-31-2024 07:07-9869GnZ5% (BldA) [Mass fraction]91 %Meera Mike DPM Work Phone: [facility]10-31-2024 07:07-0400Systolic blood iywcikjz096 mm[Hg]Meera Mike DPM Work Phone: [facility]10-28-2024 12:23-0400Body .6 cmMeera Mike DPM Work Phone: [facility]10-28-2024 12:23-0400Body mass index (BMI) [Ratio]34.4 kg/r1BnlseMeera Mike DPM Work Phone: [facility]10-28-2024 12:23-0400Body .62 kgMeera Mike DPM Work Phone: [facility]10-23-2024 14:54-0400Body ictgaa783.[address] [place], [place] 7483410-23-2024 14:54-0400Body mass index (BMI) [Ratio]34.38 kg/m2Stcz [address] [place], [place] 7483410-23-2024 14:54-0400Body .7 [degF]Stcz [address] [place], [place] 7483410-23-2024 14:54-0400Body mydxgv66.[address] [place], [place] 7483410-23-2024 14:54-0400Diastolic blood itbpjddz27 mm[Hg]St[facility] [address] [place], [place] 7483410-23-2024 14:54-0400Heart rate 83 /minStcz [address] [place], [place] 7483410-23-2024 14:54-0400Respiratory rate20 /minStcz [address] [place], [place] 7483410-23-2024 14:54-2944FxH7% (BldA) [Mass fraction]93 %Stcz [address] [place], [place] 7483410-23-2024 14:54-0400Systolic blood slkcynxl335 mm[Hg]Stcz [address] [place], [place] [address]483410-19-2024 00:54-9362ViR5% (BldA) [Mass fraction]94 %Stacy Awan MD Work Phone: [facility]10-18-2024 23:46-0400Body mnspherojrk65.01 [degF]Stacy Awan MD Work Phone: bon [facility]10-18-2024 23:46-0400Diastolic blood ffvpovsg66 mm[Hg]Stacy Awan MD Work Phone: [facility]10-18-2024 23:46-0400Heart rate92 /Bogdan Awan MD Work Phone: Bon [employer]10-18-2024 23:46-0400 Respiratory rate16 /minConevaeh Awan MD Work Phone: [facility] [employer]10-18-2024 23:46-0400Systolic blood nbixdbwk252 mm[Hg]Stacy Awan MD Work Phone: [facility] [employer]10-18-2024 20:26-0400Diastolic blood mm[Hg]Karime Ken DO Work Phone: [facility] [employer]10-18-2024 20:26-0545CjJ3% (BldA) [Mass fraction]94 %Karime Ken DO Work Phone: [facility] [employer]10-18-2024 20:26-0400Systolic blood qifmfqhm284 mm[Hg]Karime Ken DO Work Phone: [facility] [employer]10-18-2024 13:43-0400Body .3 [degF]Karime Ken DO Work Phone: [facility] [employer]10-18-2024 13:43-0400Heart rate97 /minJaveria Ken DO Work Phone: [facility] [employer]10-18-2024 13:43-0400 Respiratory rate16 /minJaveria Ken DO Work Phone: [facility] [employer]09-21-2023 20:45-0400Diastolic blood gpoqgmji65 mm[Hg]Vivian Might 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 Work Phone: [facility] [employer]09-21-2023 20:45-0400Heart rate88 /minBrett Might 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 Work Phone: [facility] [employer]09-21-2023 20:45-0400 Respiratory rate16 /minBrett Might 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 Work Phone: [employer]09-21-2023 20:45-2907GyM7% (BldA) [Mass fraction]97 %Vivian Bullard CNP Work Phone: [facility]09-21-2023 20:45-0400Systolic blood fonllxpy346 mm[Hg]Vivian Might 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 Work Phone: [facility]09-21-2023 17:32-0400Body qmvtizhryqv73 [degF]Vivian Might JOSSE Bullard 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 Work Phone: [facility]09-19-2023 11:31-0400 Respiratory rate18 /minSjoaquin Segundo [facility]09-19-2023 07:34-0400 SaO2% (BldA) [Mass fraction]95 %Emiliano Segundo [facility]09-19-2023 06:45-0400Body lfjofakgskg93.59 [degF]Emiliano Segundo [facility] 06-14-2023 06:45-0400Diastolic blood cwbdweve82 mm[Hg]Emiliano Segundo [facility]09-19-2023 06:45-0400Heart rate74 /minSjoaquin Segundo [facility]09-19-2023 06:45-0400Systolic blood vofwcttd195 mm[Hg]Emiliano Segundo [facility]09-19-2023 05:00-0400Body mass index (BMI) [Ratio]33.88 kg/m2Emiliano Segundo [facility]09-19-2023 05:00-0400Body eimqbd06.21 kg Emiliano Segundo [facility]09-18-2023 10:06-0400Body uutqzn607.6 cmSjoaquin Segundo [facility]04-26-2023 20:55-0400Body yzajym625.6 cmMthz [facility]04-26-2023 20:55-0400Body mass index (BMI) [Ratio]33.89 kg/m2Mthz [address] [place], [place] 7974304-26-2023 20:55-0400Body uredgm39.[address] [place], [place] 7974303-15-2023 14:15-0400Diastolic blood ghocwpkj11 mm[Hg] Tari Curtis MD Work Phone: [facility]03-15-2023 14:15-0400Heart rate88 /minTari Curtis MD Work Phone: [facility]03-15-2023 14:15-0400 Respiratory rate16 /minTari Curtis MD Work Phone: [facility]03-15-2023 14:15-1460EhQ7% (BldA) [Mass fraction]95 %Tari Curtis MD Work Phone: [facility]03-15-2023 14:15-0400Systolic blood xeeusdnd323 mm[Hg]Tari Curtis MD Work Phone: [facility]03-15-2023 13:48-0400Body ztsqkwvcarf37.1 [degF]Tari Curtis MD Work Phone: [facility]03-15-2023 12:16-0400Body mass index (BMI) [Ratio]33.99 kg/l2SmxrfjTari Curtis MD Work Phone: [facility]03-15-2023 12:16-0400Body egnnfw26.53 kgTari Curtis MD Work Phone: [facility]03-02-2023 16:01-0500Body ustdnb753.6 cmVarash Curtis MD Work Phone: [facility]12-13-2022 12:20-0500Body jaxnzk943.64 cmShiraz Sherman Other [facility] [employer] Other 11-11-2022 18:00-0500Body bccqqewtvee80.1 [degF]Vivian Might 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 Work Phone: [facility]ENTERAF83 [facility]ITALURBLNQ32-15-5956 18:00-0500Diastolic blood wopaqoky05 mm[Hg]Vivian Might 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 Work Phone: [facility] [employer]11-11-2022 18:00-0500Heart rate99 /minBrett Might [employer] Work Phone: [facility] [employer] [facility] HOSPITALNutmeg EducationVURIDS30-88-0050 18:00-0500 Respiratory rate18 /minBrett Might [employer] Work Phone: [facility] [employer] [facility] HWOEVV50-45-3056 18:00-7684VqA4% (BldA) [Mass fraction]94 %Vivian Might [employer] Work Phone: [facility] [employer]11-11-2022 18:00-0500Systolic blood knvolbdw861 mm[Hg]Vivian Might [employer] Work Phone: [facility] [employer] [facility] HOSPITALNutmeg EducationYONNQG88-51-5509 13:59-0500Body ktefmi801.6 cmBrett Might [employer] Work Phone: [facility] [employer] [facility] HOSPITALNutmeg EducationOZLAGN81-55-6969 13:59-0500Body mass index (BMI) [Ratio]34.7 kg/m4Hdafe Might [employer] Work Phone: [facility] [employer]11-11-2022 13:59-0500Body idwwju05.52 kgBrett Might [employer] Work Phone: [facility] [employer]04-27-2021 14:45-0400Diastolic blood yiaqjprn73 mm[Hg][facility] ZhenXinKettering Health SpringfieldHipvan Work Phone: 1(719) 347-370704-27-2021 14:45-0400Heart rate94 /minMt [employer] Work Phone: 1(255) 974-121704-27-2021 14:45-0400Respiratory rate14 /minMt ZhenXinKettering Health SpringfieldHipvan Work Phone: 1(313) 269-665304-27-2021 14:45-2919MyO3% (BldA) [Mass fraction]95 % [facility] ZhenXinKettering Health SpringfieldHipvan Work Phone: 1(974) 197-800104-27-2021 14:45-0400Systolic blood qzokrhsu647 mm[Hg] [facility] [employer] Work Phone: 1(323) 165-225604-27-2021 11:44-0400Body wfbpev567.6 cmV[facility] [employer] Work Phone: 1(875) 662-166904-27-2021 11:44-0400Body mass index (BMI) [Ratio] 30.67 kg/m2[facility] [employer] Work Phone: 1(139) 920-978304-27-2021 11:44-0400Body uewgdoxsvhg92.39 [degF][facility] [employer] Work Phone: 1(547) 403-357204-27-2021 11:44-0400Body shvyng08.18 kgV[facility] Center [employer] Phone: Encounters Encounter DateEncounter TypeCare ProviderFacilityStart: 06-63-5761cokpjbmekmBln D Salyer BELT PICKER-CNPFacility:[facility] CtrStart: 17-67-6005hpqgxnkflutaryn Lemos BELT PICKER-CNPFacility:ENT SpecStart: 08-05-2025 End: 48-42-0026xxyhddskbeByftnx Lee Mascaro PA-CFacility:ENT SpecStart: 08-02-2025 End: 11-37-4318jnzcdgjmkpOUMQQQELuis A Olivier [facility] HospitalStart: 08-02-2025 End: 12-46-3730Ufcljxbchq hospital [facility] ([facility]Start: 07-29-2025 End: 00-87-5570huvkyeoeiaMQKAPHDhiraj Brown HospitalStart: 07-29-2025 End: 75-85-3443Bihteyzrgi hospital visit by Yarely Dominique MD Work Phone: [facility] SpringfieldGROU.PS MRIComment on above:Acute pain of right shoulderAcute pain of left shoulderStart: 07-25-2025 End: 05-76-4785rmfibftvfwYNEDVCBHolland Brown HospitalStart: 07-25-2025 End: 79-44-1278Nqkdapgxpl hospital [facility] ([facility])Start: 07-23-2025 End: 30-49-5699zqftuibavpQKNPDIShalom Blandon Hannah HospitalStart: 07-23-2025 End: 78-80-7737Xmcmndhvge hospital visit by Leah Everett MD Work Phone: [facility] ORStart: 07-18-2025 End: 61-46-7152ngthonjadlGIQDDRaquel Brewer [facility] Centertart: 07-17-2025 End: 91-84-0098ejhexlfsrnZAWONP [facility] HospitalStart: 07-17-2025 End: 25-99-0911Oxyxsvfuge hospital visit by physicianV[facility] [address] [place] [address] CT ScanComment on above:Chronic nasal congestion; Chronic allergic rhinitis; Chronic sinus complaintsStart: 07-17-2025 End: 37-53-7250jtaoeydnyjVICJYNXHolland Olivier [facility] HospitalStart: 07-17-2025 End: 57-70-0534Qngwawrjer hospital [facility] by physician[facility] Op [facility] 03[facility] (MOB)Start: 07-11-2025 End: 27-74-6058zhtydqnqcjBLLBMEZ S JANETMerleyda [facility] HospitalStart: 07-11-2025 End: 91-29-6982Omcbchrmqy hospital visit by physician[facility] Op Treatment 03[facility] (MOB)Start: 06-27-2025 End: 98-70-5691qkmwdkqiwxKYWILElle Reed [facility] HospitalStart: 06-27-2025 End: 31-34-3324gwfpjlneneBHKFCRaquel Brewer [facility] HospitalStart: 06-24-2025 End: 27-13-5660jfzpmduvkaEQP [facility] Work Phone: Start: 06-24-2025 End: 09-68-0907Fxepsfh encounter procedureEagle Noe DO-[facility] Work Phone: Start: 06-19-2025 End: 21-66-3260vcaexcbwgbWSPRMMX S SAFADIMerleyda [facility] HospitalStart: 06-19-2025 End: 11-14-6848Fttgviphpb hospital [facility] by physicianV[facility] [address] [facility] ([facility])Start: 06-14-2025 End: 51-37-5777mxpkvtwbktEMAAustin Bennett [facility] HospitalStart: 06-14-2025 End: 75-88-7726Dznhebeauo hospital visit by Carmen Ardon MD Work Phone: [facility] LABComment on above:BAILEE (acute kidney injury); Decreased renal functionLightheaded; Dizziness; Elevated CK; History of syncope; Essential hypertension; Tobacco abuse; Mixed hyperlipidemia; SOB (shortness of breath)Start: 06-12-2025 End: 83-24-2657ubtmseoaroWWZJBCM [facility]Start: 06-12[facility]2025 End: 36-80-7383Itkimivgnx hospital visit by [facility] Op Treatment [address] [facility] ([facility])Start: 06-10-2025 End: 05-34-8493lzhpbeblqoLjadoo Lee Mascaro PA-CFacility:ENT SpecStart: 06-04-2025 End: 81-28-3107yvwrsmgzyyYMGEBLD [facility]Start: 05-29-2025 End: 32-86-4578Jowtyhlokt and management of inpatientChristian Dee Jhaveri MD Work Phone: mthz [facility] MED SURGComment on above:BAILEE (acute kidney injury) (Primary Dx); Lightheaded; Heart murmurStart: 05-29-2025 End: 96-81-6247bkmblysnzdLCGOACH S JANETMerleyda Brown HospitalStart: 05-29-2025 End: 60-56-1452Xsgzerqgwy hospital visit by Shirley HARE Physical TherapyComment on above:ArrivedStart: 05-24-2025 End: 96-13-4749sywckqhankMSPWC A WILKINSONJanette Mengfin HospitalStart: 05-24-2025 End: 16-27-3803Gbluezkzev hospital visit by Shirley HARE Physical TherapyComment on above:ArrivedStart: 05-23-2025 End: 89-67-4718jbnsudsnmrNCXXQGAHolland Brown HospitalStart: 05-23-2025 End: 56-04-8139Hythmnepok hospital visit by Nelaura Laboratory Schedule [facility] LABComment on above:History of syncope; Essential hypertension; Tobacco abuse; Mixed hyperlipidemia; SOB (shortness of breath); Bilateral leg edemaStart: 05-23-2025 End: 95-89-1635aemytyzdvoFRLGILVHolland Brown HospitalStart: 05-23-2025 End: 63-27-8001Akaoocvtny hospital [facility] by [facility] (MOB)Start: 05-20-2025 End: 06-73-0295durfaaqjpiJHQCI Agueda [facility]aren [facility] HospitalStart: 05-20-2025 End: 57-62-4692Thlbwjbsax hospital visit by Elizabet Rich [facility] Physical TherapyComment on above:ArrivedStart: 05-16-2025 End: 62-37-2666tlezgppdvgHIKTXJTHolland Brown HospitalStart: 05-16-2025 End: 51-40-4449Lsbgjbzsrd hospital visit by Elizabet Rich [facility] Physical TherapyComment on above:ArrivedStart: 05-13-2025 End: 77-07-9396Abgjzneapz hospital visit by Shirley Nam PTMTHZ Physical TherapyStart: 05-10-2025 End: 27-22-9783kgajtndzgmUWNHKReese Engel [facility] HospitalStart: 05-10-2025 End: 10-39-2287Ktcqilmqee hospital visit by Elizabet Rich [facility] Physical TherapyComment on above:ArrivedStart: 05-09-2025 End: 40-43-9723drwbwstzvyOOXDJReese Brown HospitalStart: 05-09-2025 End: 99-20-5911Rdixrctwus hospital [facility] Special[facility] (MOB)Comment on above:ArrivedStart: 05-02-2025 End: 33-37-0103cdfmoydorbXRFTSReese Engel [facility] HospitalStart: 05-02-2025 End: 62-22-2462Cbhhmjvdsm hospital visit by [facility] Special[facility] Clinic (MOB)Comment on above:Closed dislocation of tarsal joint of left foot, initial encounterStart: 04-30-2025 End: 75-50-0069rrwdpnudrgOoxNataliya Sim APRN-CNPFacility:[facility] Start: 04-30-2025 End: 33-85-1308vedkywbfuxBSMLC A BONNIEJamel Brown HospitalStart: 04-30-2025 End: 48-58-4278Zuvjhlnjmb hospital visit by Shirley TRUONGSusan Physical TherapyComment on above:ArrivedStart: 04-29-2025 End: 41-27-8444aotuzunftaQIGWOCQ Cheo Brown HospitalStart: 04-29-2025 End: 88-28-5747Itljsssolo hospital [facility] by [facility] (MOB)Comment on above:ArrivedStart: 04-25-2025 End: 69-29-4235llrehuzynhIWMNataliya [facility] HospitalStart: 04-25-2025 End: 03-71-1840hkcofwjvlmEXZWC A BONNIEJamel Brown HospitalStart: 04-25-2025 End: 76-07-1090Nyhylefdhx hospital visit by [facility] (MOB)Comment on above:ArrivedStart: 04-22-2025 End: 92-47-8017fqwgewnpvlKFJUFWG S Charline Brown HospitalStart: 04-22-2025 End: 24-84-3118Qxikuheuec hospital visit by [facility] (MOB)Comment on above:ArrivedStart: 04-18-2025 End: 50-95-9169mlfopsyuqiXRIDYAZ Cheo NICKArabella Brown HospitalStart: 04-18-2025 End: 08-28-7524Zfqdqouffs hospital visit by [facility] Special[facility] Clinic (MOB)Start: 04-18-2025 End: 51-24-7853qxidextniwBZHUM Agueda [facility]Mem[facility] Hospital HospitalStart: 04-18-2025 End: 99-00-3121Gdhmesmknx hospital visit by Shirley Nam [facility] Physical TherapyComment on above:ArrivedStart: 04-15-2025 End: 54-28-7630qzfakcjmprEBZUQDT S SAFADIKettering Health Springfieldleyda [facility] HospitalStart: 04-15-2025 End: 09-54-7731Eiktbspuug hospital visit by Tammy Escamilla [facility] Physical TherapyComment on above:ArrivedStart: 04-12-2025 End: 99-29-8391ryttmenojtVCQP [facility] MARYVALECHRISKettering Health Springfieldleyda [facility] HospitalStart: 04-12-2025 End: 66-69-2670Ezsmcmrslq hospital visit by [facility] MRIComment on above:Spinal stenosis, lumbar region with neurogenic claudicationStart: 04-11-2025 End: 81-33-6883kdxfzgtclyHSQDSIE S SAFCOMPAMemorial Hospital HospitalStart: 04-11-2025 End: 59-31-9015Ouywufmdru hospital visit by [facility] Op Treatment 03KSHZ Specialty Clinic (MOB)Comment on above:ArrivedStart: 04-08-2025 End: 90-12-9927pxqumobftgLKWMT Agueda MIKEKettering Health Springfieldleyda [facility] HospitalStart: 04-08-2025 End: 00-70-5917Ddvnbnqfyh hospital visit by Tammy Escamilla [facility] Physical TherapyComment on above:ArrivedStart: 04-03-2025 End: 55-79-5145zpaaiswztkNSIRA Agueda MIKEMemorial Hospital HospitalStart: 04-03-2025 End: 53-82-5739Mgxuejhiih hospital visit by Rita rOogerKSHZ Physical TherapyComment on above:ArrivedStart: 04-01-2025 End: 40-74-7093jfbvcywrirZQIDM Agueda MIKEKettering Health Springfieldleyda [facility] HospitalStart: 04-01-2025 End: 23-08-2531Fjbzpkzaxs hospital visit by Shirley Nam PTMZ Physical TherapyComment on above:ArrivedStart: 02-25-2025 End: 01-19-0706cyfecdsjxxGpwilmfSosa Khancility:EDUARDA Aden Start: 01-29-2025 End: 88-71-4047Ppokruftkq hospital visit by Shirley HARE Physical TherapyStart: 01-29-2025 End: 81-79-7292gpuhevkuezZlmanRaquel GODINEZFacility:[facility] CtrStart: 01-25-2025 End: 36-60-3592dwozsxgkxzAFK SALSelect [facility] HospitalStart: 01-25-2025 End: 15-40-3365Pvravdbivy hospital visit by Oscar Bullard CNP Work Phone: [place] [address] LABStart: 01-24-2025 End: 31-89-5465Ypyarodkov hospital visit by Noe Chappell PTAMTHZ Physical TherapyStart: 01-96-3797uxiwxvlgrgPGUUZ A [facility]ITALMARISMemorial Hospital HospitalStart: 01-22-2025 End: 41-85-0566Ejaenbeeze hospital visit by Elizabet Rich [facility] Physical TherapyStart: 01-17-2025 End: 38-08-0583rpusthwlmeIAMCI A [facility]ITALMARISMemorial Hospital HospitalStart: 01-17-2025 End: 28-88-4890Oqwwdseosq hospital visit by Masood Lozoya [facility] Physical TherapyComment on above:ArrivedStart: 01-14-2025 End: 69-44-7559Vhfndlribx hospital visit by Masood Lozoya [facility] Physical TherapyStart: 01-10-2025 End: 75-96-4500sypxgwzhqmPPBOQ A [facility]ITALMARISMem[facility] Hospital HospitalStart: 01-10-2025 End: 95-41-0854Vjlokwrdin hospital visit by Elizabet Rich [facility] Physical TherapyComment on above:ArrivedStart: 01-08-2025 End: 42-41-3290dzmkkqkzruAMLLR A [facility]ITALMARISMem[facility] Hospital HospitalStart: 01-08-2025 End: 86-32-5809Skxpxllnyj hospital visit by Elizabet Rich [facility] Physical TherapyComment on above:ArrivedStart: 01-03-2025 End: 80-21-8495bgsttskdmrOSMZK Agueda Maren [facility] Centertart: 01-02-2025 End: 73-16-1303nsiagmgxcdQWZIH Agueda Jaylynleyda [facility] HospitalStart: 01-02-2025 End: 22-52-5373Eyeppiwswq hospital visit by Rita OrogerMTHZ Physical TherapyComment on above:ArrivedStart: 12-31-2024 End: 00-97-8527digbvdouxlYZIDM A Maren [facility] HospitalStart: 12-31-2024 End: 00-04-2407Dxcggfnneg hospital visit by Noe Chappell PTAMTHZ Physical TherapyComment on above:ArrivedStart: 12-26-2024 End: 44-01-1200hblpahqngpSFSCM Agueda Maren [facility] HospitalStart: 12-26-2024 End: 67-07-1507Mglelllowu hospital visit by Rita OrogerMTHZ Physical TherapyComment on above:ArrivedStart: 12-24-2024 End: 68-37-3667grxvbrauxePJPFB Agueda Maren [facility] HospitalStart: 12-24-2024 End: 68-44-1056Lidjrocjni hospital visit by Noe Chappell PTAMTHZ Physical TherapyComment on above:ArrivedStart: 12-19-2024 End: 15-35-4375lzldsuoinnMMIFVReese Mengfin HospitalStart: 12-19-2024 End: 65-09-5266Wdqethknhy hospital visit by Elizabet Rich PTAMTHZ Physical TherapyComment on above:ArrivedStart: 12-17-2024 End: 87-10-9579Dcivvtdijf hospital visit by Noe Chappell PTAMTHZ Physical TherapyStart: 12-12-2024 End: 29-14-2569jmmkcdfbwlSVBYCReese Engel [facility] HospitalStart: 12-12-2024 End: 94-54-4979Yrgqcraxfs hospital visit by Rita OrogerMTHZ Physical TherapyComment on above:ArrivedStart: 12-10-2024 End: 17-73-0348oftmbljksiQTOHFItalia Engel [facility] HospitalStart: 12-10-2024 End: 68-43-0299Fzqbtrqnqk hospital visit by Tammy Escamilla PTAMTHZ Physical TherapyComment on above:ArrivedStart: 12-05-2024 End: 31-48-6917xbvozmnfwcCBZFFReese Engel [facility] HospitalStart: 12-05-2024 End: 85-93-5516Suqdixwmbq hospital visit by Masood Lozoya PTAMTHZ Physical TherapyComment on above:ArrivedStart: 12-03-2024 End: 39-21-6545plrsvuwivcNEDKXItalia Engel [facility] HospitalStart: 12-03-2024 End: 73-08-2037Vlvsgvlimf hospital visit by Masood Lozoya PTAMTHZ Physical TherapyComment on above:ArrivedStart: 11-29-2024 End: 99-77-4858Khwqphbwev hospital visit by Noe Chappell PTAMTHZ Physical TherapyStart: 11-27-2024 End: 01-44-9322mvpeexoswcMQUOW Lauryn Brewer [facility] HospitalStart: 11-27-2024 End: 11-97-2658Tpinbfnagq hospital visit by Shirley Nam PTMTHZ Physical TherapyComment on above:ArrivedStart: 11-22-2024 End: 75-16-6526oagpvdwmphIXTOR A [facility] CenterStart: 27-13-6979vfmkmgslwuVAUCZ W ANA ROSAKettering Health Springfieldleyda [facility] HospitalStart: 10-25-2024 End: 77-14-5393zgbnussxvtDCDMJ Agueda [facility] CenterStart: 10-23-2024 End: 68-19-6679aowcuwgpakDbyxrGerard GODINEZFacility:[facility] CtrStart: 10-11-2024 End: 98-17-8945caqiccbyhvZQN SALMarietta [facility] HospitalStart: 10-11-2024 End: 51-63-5577Ymssrohowu hospital visit by Oscar Bullard CNP Work Phone: mthz LaboratoryStart: 10-11-2024 End: 29-51-5702swehccbusyRTUTQ A [facility] Campustart: 09-27-2024 End: 74-23-6395rzefbziykhVFEKPCleveland Clinic Euclid Hospitaltart: 09-14-2024 End: 10-72-5461yonuzrroxeHBPKD A [facility] Hospitaltart: 09-14-2024 End: 74-89-8424Prwbcbufbc hospital visit by Marva Mike DPM Work Phone: stcz Med SurgComment on above:Post-op pain (Primary Dx); Charcot ankle, left; Diabetes (HCC)Start: 09-07-2024 End: 48-90-2743jgaqxkfmvtAFGBE A 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); Tobacco abuse; Left foot painStart: 07-23-2024 End: 23-63-5984Mfflwzxlmn and management of Nickolas Mike DPM Work Phone: stcz Med SurgComment on above:Post-op pain (Primary Dx); Closed dislocation of tarsal joint of left foot, initial encounter; Charcot ankle, leftStart: 07-18-2024 End: 61-03-6930dyegzirtuyLYLBVUniversity Hospitals Beachwood Medical Centertart: 07-18-2024 End: 98-80-3903Raigjlydhr hospital visit by Savage Ruth 3STCZ Pre-Admit TestingStart: 07-13-2024 End: 84-49-3933Fimsicsdg department patient visitConevaeh Awan MD Work Phone: [facility] EDComment on above:Lisfranc dislocation, left, initial encounter (Primary Dx)Start: 07-13-2024 End: 77-04-5138Dfepymwve department patient visitJakerri Ken DO Work Phone: [facility] EDComment on above:Lisfranc dislocation, left, initial encounter (Primary Dx); Closed nondisplaced fracture of metatarsal bone of left foot, unspecified metatarsal, initial encounterStart: 07-02-2024 End: 78-10-1420Nkowmmkhft hospital visit by Destini Duenas [facility] NortheastHZ LaboratoryComment on above:Recurrent pansinusitisRecurrent pansinusitis; Recurrent sinusitisStart: 06-08-2024 End: 24-95-4278Saxgortvsc hospital visit by Oscar Bullard CNP Work Phone: mthz LaboratoryStart: 05-22-2024 End: 99-73-0119Gcqjmgajxs hospital visit by Raffaele Sunshine [facility] Physical TherapyComment on above:ArrivedStart: 04-23-2024 End: 54-84-9689Cntmzphwww hospital visit by Rita MoraKSHZ Physical TherapyComment on above:ArrivedStart: 04-12-2024 End: 72-04-3036Qwdnfltuzx hospital visit by Ashlee Hickman [facility] Physical TherapyStart: 03-01-2024 End: 82-20-8016Mmybhaiwyl hospital visit by Josué Rea [facility] Physical TherapyStart: 02-16-2024 End: 26-46-3326Ajzbucudbl hospital visit by Raffaele Sunshine [facility] Physical TherapyComment on above:ArrivedStart: 01-16-2024 End: 54-10-3966Sfiiblgprb hospital visit by Tammy Escamilla [facility] Physical TherapyStart: 12-07-2023 End: 33-18-4426Lqhpzskoju hospital visit by [facility] RadiologyComment on above:Lower leg edemaStart: 06-16-2023 End: 59-95-1648Odlmwrhlo department patient visitVivian Bullard CNP Work Phone: [facility] EDComment on above:Syncope, unspecified syncope type (Primary Dx)Start: 06-10-2023 End: 52-89-3722Kdxmfdxeky and management of inpatientSean Ray MDMZ [facility] CALIFORNIAU MED SURGComment on above:Recurrent syncope (Primary Dx); Pneumonia of both lower lobes due to infectious organismStart: 02-25-2023 ambulatoryNARENDRANATH LAKSHMIPATHY .Facility:Y5Ksgbv: 02-08-2023 End: 65-57-1515gkbsbzzgvuWLAOUOQQRAHZ LAKSHMIPATHY .Facility:P7Zpwjx: 01-27-2023 End: 06-70-0689ausylrzpqtSCMDXAZPMPHN LAKSHMIPATHY .Facility:U9Xdzfv: 01-19-2023 End: 75-16-6085Sfproeuhwo [facility] Rm 1MTHZ Sleep CenterComment on above:LAYNE (obstructive sleep apnea)Start: 01-11-2023 End: 03-65-4600gtbeqnzcumQFXJAFYVTCCQ LAKSHMIPATHY .Facility:O5Imhvk: 12-30-2022 End: 91-29-1340xzjnnyegtsZQSQQVUGPOAS LAKSHMIPATHY .Facility:X3Gleym: 12-28-2022 End: 68-48-2417Rrsgonpxtd hospital visit by [facility] Mri [facility] MRIComment on above:Thoracic neuritisStart: 12-08-2022 End: 70-06-1878Sjgmvaaqih hospital visit by Ny Curtis MD Work Phone: mthz ORComment on above:Screening for colon cancer Start: 11-30-2022 End: 43-55-7625znowszxlstOINMZZROYGLX LAKSHMIPATHY .Facility:O4Ilkca: 11-23-2022 End: 04-84-8475Lcznxlagxy hospital [facility] by [facility] Sleep Rm 1MTHZ Sleep CenterComment on above:Tired; Fatigue, unspecified type; LAYNE (obstructive sleep apnea)Start: 11-17-2022 End: 50-46-3927Gtgmzjeedz hospital visit by [facility] Mri [facility] MRIComment on above:Lumbar radiculitisStart: 10-21-2022 End: 08-38-7166rjjmsxagmlST DOCTOR MISCFacility:T6Cxvte: 10-08-2022 End: 13-55-0123Zibciel encounter statusC[facility] EKGStart: 10-08-2022 End: 10-55-2139Snmnspdzbx hospital visit by [facility] Python Consultant [facility] EKG Comment on above:Syncope and collapse; Preop cardiovascular exam; Dizziness; Primary hypertension; Mixed hyperlipidemia; Tobacco abuse counselingStart: 11-54-2585Ncervlkrc to same day surgery center [facility] OutPtStart: 10-04-2022 End: 24-36-0745jgxbhfjwoeDFM STAFFFacility:[facility] Start: 10-01-2022 End: 01-77-4129Gnunxmejja hospital [facility] Tilt Table [facility] Stress LabComment on above:Canceled (Other)Start: 09-30-2022 End: 91-94-1203fsxpibupknHJA STAFFFacility:[facility] Start: 09-30-2022 End: 52-98-6977ebvlahkxrrONJ [facility] Work Phone: Start: 09-30-2022 End: 18-29-7688Deynvob encounter [facility] Qku-Mqg-Ylgjsbmc Testing Work Phone: Start: 09-29-2022 End: 60-41-1023Rdgnfbfqbt hospital visit by [facility] Tilt Table Study Room [facility] Stress LabComment on above:Postural syncopeStart: 09-21-2022 End: 71-46-0617aampckympbLMS STAFFFacility:[facility] Start: 09-21-2022 End: 43-77-2678cbjivthmjwIMB [facility] Work Phone: Start: 09-21-2022 End: 09-42-2855Mfmxedd encounter procedureBrecksville [facility] Work Phone: Start: 09-21-2022 End: 94-98-4931Klohuczvgi hospital visit by Oscar Bullard CNP Work Phone: mthz LaboratoryComment on above:Controlled type 2 diabetes mellitus with diabetic polyneuropathy, with long-term current use of insulin (HCC)Start: 09-14-2022 End: 58-19-2406pnmfzgyebiMF DOCTOR MISCFacility:R0Krrgl: 09-10-2022 End: 19-86-7660Jdbzljmmhf hospital visit by physicianTorri Covid Screening ScheduleELMH[facility]ST [facility] Covid ScreeningComment on above:ArrivedStart: 51-89-9587Guoifz outpatient visit [facility] NeurosurgeryStart: 09-07-2022 End: 35-13-5020wthlerpmueKN DOCTOR [facility] [employer] Other start: 09-03-2022 End: 15-62-2753Oonjejobfn hospital visit by physicianTorri Covid Screening ScheduleELMHURST [facility] CENTER Covid ScreeningComment on above:ArrivedStart: 08-26-2022 End: 83-07-9418emhnbdbpkfIZ DOCTOR MISCFacility:K8Lelim: 08-10-2022 End: 21-87-4800oymmjsjjwgFO JASPER Cheo YUMIKO .Facility:P2Tcchv: 08-06-2022 End: 32-68-0014Igdnixthjb hospital visit by Shirley HARE Physical TherapyStart: 08-06-2022 End: 29-03-6056Wituvrzed department patient visitVivian Bullard CNP Work Phone: m[facility] EDComment on above:Rib pain on left side (Primary Dx)Start: 08-04-2022 End: 23-96-2885Qlqyhxoqgk hospital visit by [facility] Ultrasound [facility] UltrasoundComment on above:Colon cancer screening; Fatty liverStart: 08-02-2022 End: 03-15-5607Ujcrozwufv hospital visit by Shirley HARE Physical TherapyStart: 07-29-2022 End: 30-13-0242ogdwnplbyuAK JASPERJUDI [place] .Facility:U0Fwyzs: 07-23-2022 End: 18-93-5363Cntpcyxbdb hospital visit by Shirley Nam PTMTHSusan Physical TherapyStart: 07-19-2022 End: 46-55-3589Zhtcglgvfj hospital visit by Doreen Mccray PTAKSLAURA LaboratoryComment on above:Colon cancer screening; Fatty liverArrivedStart: 07-16-2022 End: 96-11-3936Qkvryfhcii hospital visit by Shirley Nam PTMTHSusan Physical TherapyComment on above:ArrivedStart: 07-13-2022 End: 30-72-3327Liqqcjqbgb hospital visit by Doreen Mccray PTAKSLAURA Physical TherapyComment on above:ArrivedStart: 07-12-2022 End: 79-45-1854Thuwqraafn hospital visit by Doreen Mccray PTAKSLAURA Physical TherapyComment on above:ArrivedStart: 07-08-2022 End: 51-74-6691Pwhusbdayo hospital visit by Shirley Nam PTMTHSusan Physical TherapyComment on above:ArrivedStart: 07-07-2022 End: 72-08-7385Nidboygaxc hospital visit by Lasha Beltran PTAKSHZ Physical TherapyComment on above:ArrivedStart: 07-05-2022 End: 21-43-5877Hnjdowugut hospital visit by Lasha Beltran PTAKSHZ Physical TherapyComment on above:ArrivedStart: 07-02-2022 End: 85-32-1981Eijwiwdgzh hospital visit by Shirley Nam PTMSusan Physical TherapyComment on above:ArrivedStart: 06-30-2022 End: 20-67-3381Vyictowzig hospital visit by Lasha Beltran PTAKSHZ Physical TherapyComment on above:ArrivedStart: 06-28-2022 End: 46-60-7619Iotainvjqk hospital visit by Lasha Beltran PTAKSHZ Physical TherapyComment on above:ArrivedStart: 06-24-2022 End: 03-37-0981Svdvrkzucx hospital visit by Shirley Nam [facility] Physical TherapyComment on above:ArrivedStart: 06-18-2022 End: 97-58-7178Qpmshtrmzg hospital visit by Lasha Beltran [facility]TAELMH[facility] Physical TherapyComment on above:ArrivedStart: 06-16-2022 End: 97-99-7291Ctcdsxffaf hospital visit by Lasha [facility]tran [facility] Physical TherapyComment on above:ArrivedStart: 06-14-2022 End: 31-92-1124Omgtzmvyhu hospital visit by Lasha Beltran [facility]ELMH[facility] Physical TherapyComment on above:ArrivedStart: 06-11-2022 End: 61-47-6575Pzsoyerong hospital visit by Shirley Nam [facility] Physical TherapyComment on above:ArrivedStart: 06-07-2022 End: 71-05-3771Jhivmrdehm hospital visit by Lasha Beltran [facility]ELMH[facility] Physical TherapyStart: 06-02-2022 End: 80-63-5990Yfiocuvscd hospital visit by Lasha Beltran [facility]ELMH[facility] Physical TherapyStart: 05-28-2022 End: 58-52-1040Qhvlmzidrm hospital visit by Shirley Nam [facility] Physical TherapyComment on above:ArrivedStart: 05-27-2022 End: 07-38-8294Iigdyngvaw hospital visit by Shirley Nam [facility] Physical TherapyComment on above:ArrivedStart: 05-25-2022 End: 30-32-8700Hjpptgjumz hospital visit by Caitlin Garcia [facility] Physical TherapyComment on above:ArrivedStart: 05-18-2022 End: 05-78-2879Scdjczpfew hospital visit by Shirley Nam [facility] Physical TherapyComment on above:ArrivedStart: 04-29-2022 End: 59-62-9318rgthyoyhcaXQ VIMAL S KUMAR .Facility:Y8Azzke: 04-13-2022 End: 55-93-4292pbpokjszhcIY JASPER [place] .Facility:S7Rnvpk: 04-09-2022 End: 81-34-2257Tsjtsuxhiv hospital visit by physicianTorri Covid Screening ScheduleMTHZ Covid ScreeningComment on above:ArrivedStart: 04-01-2022 End: 48-12-6922qfgjzlyyniGBNL SOLIS .Facility:Z5Dtyaj: 03-31-2022 End: 71-32-5043Vkebjhvauw hospital visit by [facility] Vascular Imaging Room [facility] Vascular LabComment on above:Intermittent claudication (HCC) Start: 03-02-2022 End: 64-68-6079edciyicdfxXND STAFFFacility:[facility] Start: 11-26-2021 End: 35-15-7574Ozbanssmlf [facility] Covid Screening ScheduleELMHURST [facility] Covid ScreeningComment on above:ArrivedStart: 05-15-2021 End: 53-57-1731Gxfdmmvtzw hospital visit by [facility] Mammography [facility] MammographyComment on above:Other screening mammogramStart: 14-58-1475rvaksgsvrvWZQEW [facility] Hospitaltart: 03-11-2021 End: 81-11-6753Gjckjfpsou hospital visit by Oscar Bullard CNP Work Phone: mthz LaboratoryComment on above:Abnormal LFTsStart: 03-04-2021 End: 83-94-6609Ceqgoengqu hospital visit by [facility] Cardiology Stress Room [facility] Stress LabComment on above:ArrivedStart: 03-03-2021 End: 49-65-5448Gicewcodsi hospital visit by physician[facility] Echo RoomELMHURST H[facility]ITAL CENTER EchocardiographyComment on above:Essential hypertension; Chest discomfort; Hyperlipidemia, unspecified hyperlipidemia type; Tobacco abuseArrivedStart: 02-09-2021 End: 79-91-9634Hzaqxdnnnh hospital visit by Oscar Bullard CNP Work Phone: mthz LaboratoryComment on above:HepatomegalyStart: 01-28-2021 End: 24-59-9560Abfcgwbphx hospital visit by Oscar Bullard CNP Work Phone: mthz LaboratoryComment on above:Renal stones; Renal colicStart: 01-27-2021 End: 51-82-5253Ztlfuhjqny hospital visit by [facility] Xr Dr Room [address] [place] [address] RadiologyComment on above:Renal stonesStart: 01-20-2021 End: 95-88-8775Wcypyqyvpy hospital visit by [facility] Cat [facility] CT ScanComment on above:DDD (degenerative disc disease), lumbar Start: 09-30-2020 End: [id number] hospital visit by Nel[facility] Covid ScreeningComment on above:Preoperative testingStart: 08-13-2020 End: 04-13-4556Qrcvqioulu hospital visit by Oscar Lopez Laboratory Start: 07-25-2020 End: 38-88-0437Qbksvfuhlt hospital visit [facility] ScanComment on above:Traumatic injury of head, initial encounter; Scalp tendernessStart: 07-08-2020 End: 26-13-3862Eyczngcrol hospital visit by Nelaura [facility] Covid ScreeningComment on above:ArrivedStart: 01-25-2020 End: 86-56-9588Zygujqmwhq hospital visit by [facility] Xr Dr Room [address] [place] [address] RadiologyComment on above:Renal stonesStart: 12-28-2019 End: 79-12-3213Usbdjwldfj hospital visit by Oscar Lopez Laboratory Start: 10-18-2019 End: 32-98-6548Nivdobbbdf hospital visit by Oscar Bullard CNP Work Phone: mthz LaboratoryComment on above:Right upper quadrant abdominal painStart: 10-03-2019 End: 84-89-9951Bfsywqosty hospital visit by Oscar Bullard CNP Work Phone: mthz EKGStart: 08-22-2019 End: 42-00-2034Nidvgiadvt hospital visit by [facility] Nuclear MedicineComment on above:ArrivedGeneralized abdominal pain Start: 08-16-2019 End: 81-95-0625Jxzevpaoqj hospital visit by [facility] Nuclear MedicineComment on above:Generalized abdominal painStart: 08-03-2019 End: 57-19-3632Iqvmrweotz hospital visit by [facility] Ultrasound Room 2 At [facility] UltrasoundComment on above:ThyromegalyStart: 07-30-2019 End: 05-44-4823Hjepgljnlh hospital visit by Destini Cat [facility] CT ScanComment on above:Abdominal pain, unspecified abdominal locationStart: 07-20-2019 End: 30-95-9858Oydgwxqhrs hospital visit by Oscar Lopez [facility] Start: 07-13-2019 End: 27-24-5885Vkjbfbtqma hospital visit by Oscar Lopez [facility] Comment on above:Diabetes mellitus type 2 with complications, uncontrolled (HCC) Start: 06-04-2019 End: 30-60-5441Izbbwhqvjw hospital visit by Oscar Lopez [facility] Comment on above:Diabetes mellitus type 2 with complications, uncontrolled (HCC) Procedures DateProcedureProcedure DetailPerforming ClinicianStart: 42-39-1321JHHGLRJ, GIBRAN Everett MD Work Phone: Start: 06-63-9174TXYGHPH, GIBRAN Everett MD Work Phone: Start: 87-66-5760Riwah metabolic panel calcium total Vivian W Might [employer] - 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 Work Phone: Start: 15-47-9674HTSIWUZ, WHOLE BLOODEmanuel Danielle MD Work Phone: Start: 71-32-0140Rt retroperitoneal real time w/image completeAli Ehsan Ardon MD Work Phone: Start: 44-69-4226UZLLQAC, WHOLE BLOODEmanuel Danielle MD Work Phone: Start: 92-17-6772Lzhdhq ecg 1-3 leads w/interpretation & reportUnknown Provider ResultStart: 39-56-4888KVTER METABOLIC PANEL W/ REFLEX TO MG FOR LOW KStefan Tristan MULLEN Work Phone: Start: 19-36-6256Yovqptoi kinase totalAli Ehsan Ardon MD Work Phone: Start: 08-78-6132TVMWIVQ, GIBRAN BLOODEmanuel Danielle MD Work Phone: Start: 98-63-2040CUETWCM, WHOLE BLOODEmanuel Danielle MD Work Phone: Start: 49-62-6734MPPTIXO, WHOLE BLOODEmanuel Danielle MD Work Phone: Start: 05-30-2025 End: 11-16-4689Lojqhu ecg 1-3 leads w/interpretation & reportUnknown Provider ResultStart: 98-03-4701Erji tthrc r-t 2d w/wom-mode compl spec&colr dSttierney Danielle MD Work Phone: Start: 31-05-3603WBTBQQG, WHOLE BLOODEmanuel Danielle MD Work Phone: Start: 55-91-9809NZNKY METABOLIC PANEL W/ REFLEX TO MG FOR LOW KStefan Tristan MULLEN Work Phone: Start: 60-32-9076Gbyms count complete auto&auto difrntl wbcSttierney Danielle MD Work Phone: Start: 91-60-4609Opyap of troponin quantitative Inder Jhaveri MD Work Phone: Start: 33-52-7804Amrqiiqnaelim metabolic panel Inder Jhaveri MD Work Phone: Start: 38-07-1127Qxoruninko exam chest 2 views Inder Jhaveri MD Work Phone: Start: 80-47-2772Kijfs of thyroid stimulating hormone tshChkevin Jhaveri MD Work Phone: Start: 44-88-8279Gxv routine ecg w/least 12 lds i&r onlyChkevin Jhaveri MD Work Phone: Start: 62-85-1636JSYRB-19, RAPIDChkevin Jhaveri MD Work Phone: Start: 55-84-5058Vcxszicxb influenzaChkevin Jhaveri MD Work Phone: Start: 70-60-3550Lwkud panelGénesis Stoner [employer] - 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 Work Phone: Start: 05-23-2025 End: 81-61-1188Atznuwnfjfolg metabolic panelGénesis Stoner [employer] P[employer]ER - [facility] Work Phone: Start: 89-99-4598Imauhjevsf glycosylated a1cJay Alvord Work Phone: Start: 74-16-6885Zhjwyjzktm glycosylated a1cJay Alvord Work Phone: Start: 16-04-4936Fqvevcd blood reagent stripKhase A Mike DPM Work Phone: start: 21-99-4651Hefesgg blood reagent stripMeenaase A Mike DPM Work Phone: start: 98-26-6524Nhhhl count complete auto&auto difrntl wbcUrbano Zarina Angelique DPM Work Phone: Start: 76-90-2592Wueuefs blood reagent stripKhase A Mike DPM Work Phone: start: 81-20-5777Tchigze blood reagent stripKhase A Mike DPM Work Phone: start: 90-59-4362Gpfccoh blood reagent stripKhase A Mike DPM Work Phone: start: 68-28-8354Oyrhsrdbey examination tibia & fibula 2 viewsQuintimbo Merino DPM Work Phone: Start: 33-04-3697Utjrydtdjsx during operationKhase A Mike DPM Work Phone: start: 09-14-2024 End: 70-78-6602Ljvrppvifmk subtalarMeenaase A Mike DPM Work Phone: start: 09-14-2024 End: 73-37-7896Lifbmfs external fixation system under anesKhase A Mike DPM Work Phone: start: 09-14-2024 End: 39-83-4513Geijcia blood reagent stripKhase A Mike DPM Work Phone: start: 66-16-0039Bpjhg metabolic panel calcium total Valerie Mg MD Work Phone: Start: 29-72-4438Vajdfhd blood reagent stripKhase A Mike DPM Work Phone: Start: 36-30-6708Pikydqfu kinase totalLucas S Gus DPM Work Phone: Start: 94-43-9529YIIE/MYOGLOBINLucas S Gus DPM Work Phone: Start: 89-15-3931Webavkf blood reagent stripKhase A Mike DPM Work Phone: Start: 26-81-0889Gcsorta blood reagent stripKhase A Mike DPM Work Phone: Start: 72-51-0590Lrlemad blood reagent stripKhase A Mike DPM Work Phone: Start: 38-81-3748N-reactive proteinLucchelsie Weber DPM Work Phone: Start: 63-11-6943Ciwwinz blood reagent stripKhase A Mike DPM Work Phone: Start: 02-90-5750Kyqmldm blood reagent stripKhase A Mike DPM Work Phone: Start: 18-66-7706Hkahgna blood reagent stripKhase A Mike DPM Work Phone: Start: 48-92-6459Yhvmhgsnxxzlc metabolic panelBicheyanne Cleveland MD Work Phone: Start: 25-41-8543Aazajxb blood reagent stripKhase A Mike DPM Work Phone: Start: 69-11-7638Pwadync blood reagent stripKhase A Mike DPM Work Phone: Start: 01-49-6339Qyoxshj blood reagent stripKhase A Mike DPM Work Phone: Start: 67-67-4819Gnbncca blood reagent stripKhase Agueda GoodwinMike DPM Work Phone: Start: 08-00-6198Mytxualwrh glycosylated c9bCptwachelsie Weber DPM Work Phone: Start: 89-25-6346Uatrjwe blood reagent stripKhase Agueda Mike DPM Work Phone: Start: 47-58-5237Gocmzlb blood reagent stripKhase A Mike DPM Work Phone: Start: 07-23-2024 End: 47-06-1202Zqbejtmsdm examination tibia & fibula 2 viewsLucchelsie S Gus DPM Work Phone: Start: 01-79-2057Zkmcdrj blood reagent stripKhase A Mike DPM Work Phone: Start: 60-40-0522Rsxbqdbkbze during operationKhase Agueda Mike DPM Work Phone: Start: 07-23-2024 End: 21-26-8629Dupfaqwwwte uniplane external fixation systemMeenaase Agueda Mike DPM Work Phone: Start: 07-23-2024 End: 31-09-8199Bfv skel fixj metar fx w/manjKhase Agueda Mike DPM Work Phone: Start: 07-23-2024 End: 70-90-3895Pfwuzjurd serum plasma/whole bloodPatricia Bethanie Chapa [employer] - 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 Work Phone: Start: 39-16-7256Erblj metabolic panel calcium total Phil Pamela Herrera MD Work Phone: start: 64-31-6971Iqlbt foot complete minimum 3 views Zora Martinez DPM Work Phone: Start: 09-20-3632NYOVTXQ, WHOLE BLOODJaveria J Ken DO Work Phone: Start: 62-11-7540Tg lower extremity w/o contrast materialJaveria J Ken DO Work Phone: Start: 79-94-5276Ayfig foot complete minimum 3 views Karime Ken DO Work Phone: Start: 88-11-3697Lwyvi metabolic panel calcium total Vivian W Might [employer] - 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 Work Phone: Start: 26-70-6359Zs maxillofacial w/o contrast materialBrett W Might [employer] - 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 Work Phone: Start: 40-61-8521Ovbfk of thyroid stimulating hormone tshRolan Sim Work Phone: Start: 81-77-6776Gguwraejgp exam chest 2 viewsBrett W Might [employer] - 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 Work Phone: Start: 99-81-8088Hs head/brain w/o contrast material Vicki Finnegan PA-C Work Phone: Start: 24-07-9580Wefoddiezlhhw metabolic panelKelly Y Finnegan PA-C Work Phone: Start: 32-23-9837Hbjtjavius exam chest single view Vicki Conti Finnegan PA-C Work Phone: Start: 14-94-3517YHRFPCT, WHOLE BLOODEmanuel Danielle MD Work Phone: Start: 28-47-2467EZGFLRH, GIBRAN BLOODSttierney Danielle MD Work Phone: Start: 09-76-1806IEHAW METABOLIC PANEL W/ REFLEX TO MG FOR LOW KStefan Tristan MULLEN Work Phone: Start: 12-17-3270Ccksa count complete auto&auto difrntl wbcSttierney Danielle MD Work Phone: Start: 09-45-4875SKKKDFO, WHOLE BLOODEmanuel Danielle MD Work Phone: Start: 80-90-7911BASRPQV, WHOLE BLOODEmanuel Danielle MD Work Phone: Start: 50-11-6929DNUDWWR, GIBRAN BLOODEmanuel Danielle MD Work Phone: Start: 80-35-0812PUVUICV, WHOLE BLOODSttierney Danielle MD Work Phone: Start: 06-13-2023 End: 81-85-8577Lyyfvl ecg 1-3 leads w/interpretation & reportUnknown Provider ResultStart: 97-12-3325RJIPH METABOLIC PANEL W/ REFLEX TO MG FOR LOW KStefan Tristan MULLEN Work Phone: Start: 94-82-1797Wazyc count complete auto&auto difrntl wbcEmanuel Danielle MD Work Phone: Start: 98-10-9189QKMJDGO, WHOLE BLOODSttierney Danielle MD Work Phone: Start: 65-34-6509NHVDHBM, WHOLE BLOODSttierney Danielle MD Work Phone: Start: 70-43-6122XKJRGSL, WHOLE BLOODSttierney Danielle MD Work Phone: Start: 65-53-7754VMXNEQW, WHOLE BLOODSttierney Danielle MD Work Phone: Start: 06-12-2023 End: 67-59-7552Mhbodo ecg 1-3 leads w/interpretation & reportUnknown Provider ResultStart: 76-37-4269MKMTC METABOLIC PANEL W/ REFLEX TO MG FOR LOW KSerikafan Tristan MULLEN Work Phone: Start: 42-44-1851Tzccm count complete auto&auto difrntl wbcEmanuel Danielle MD Work Phone: Start: 08-65-5823XQGBQDP, WHOLE BLOODSttierney Danielle MD Work Phone: Start: 59-24-1858KPZQLRM, WHOLE BLOODSttierney Danielle MD Work Phone: Start: 39-45-3584WJCFKBJ, WHOLE BLOODStefsumaya Danielle MD Work Phone: Start: 47-45-1157USNTBXF, WHOLE BLOODSttierney Danielle MD Work Phone: start: 98-67-2241QGZCSOF, WHOLE BLOODStefsumaya Danielle MD Work Phone: Start: 06-11-2023 End: 21-47-8792Vlvuha ecg 1-3 leads w/interpretation & reportUnknown Provider ResultStart: 14-68-1997XGOWS METABOLIC PANEL W/ REFLEX TO MG FOR LOW KSmackenzie Danielle MD Work Phone: Start: 66-37-4230Gotgtboxhap peptideSmackenzie Danielle MD Work Phone: Start: 70-71-7631PVTAQFG, SEPSISSean Ray MDStart: 83-59-7919Ahtnwqoiehbkr (pct)Emanuel Danielle MD Work Phone: Start: 41-43-6523Kbeyewk bacterial blood aerobic w/id isolatesSean Ray MDStart: 41-00-3827Ubzwm of troponin quantitativeSesumaya Segundo MD Start: 31-61-7760NKXDHBX, BLOOD 1Sean Ray MDStart: 43-08-5402MQTEATT, SEPSISSean Ray MDStart: 04-49-9690Xv thorax w/contrast materialSean Ray MDStart: 70-59-3265Nswcztyirz exam chest 2 viewsSean Ray MDStart: 46-18-6812Uj cervical spine w/o contrast materialSean Ray MDStart: 06-73-9248Iw head/brain w/o contrast materialSean Ray MDStart: 15-90-8649JKZID-19, RAPIDSean Ray MDStart: 10-19-3282Ljnatntkymgqe metabolic panelSean Ray MDStart: 75-02-1206Loe routine ecg w/least 12 lds i&r onlySean Ray MDStart: 64-67-5833Ejv spinal canal thoracic w/o contrast Warren Brady MD Work Phone: Start: 08-01-3730YVRYYLN, WHOLE BLOODTari Curtis MD Work Phone: Start: 12-08-2022 End: 83-43-0422EnnglxmyuxoNfqatb N Chidi MD Work Phone: Start: 33-12-8570Kbm spinal canal lumbar w/o contrast materialJill C Gamez BELT PICKER - MAILING MANAGER Work Phone: Start: 77-71-4227VSTP Antigen (LFIA)Start: 09-29-2022 NM TILT TABLE TESTBrett W Might [employer] P[employer]ER - 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 Work Phone: Start: 43-65-1387Pnggl albumin quantitativeBrett W Might [employer] P[employer]ER - 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 Work Phone: Start: 09-29-6360Xkckq panelBrett W Might [employer] P[employer]ER - 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 Work Phone: Start: 09-21-2022 End: 30-05-2846Evbca metabolic panel calcium totalBrett W Might [employer] P[employer]ER - 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 Work Phone: Start: 12-51-2701Wbwce of troponin quantitativeYusef A Hammuda PA-C Work Phone: Start: 74-67-1447Svc routine ecg w/least 12 lds w/i&r Shan A Hammuda PA-C Work Phone: Start: 50-19-4863Bqdxtxvagc exam chest single view Shan A Hammuda PA-C Work Phone: Start: 59-25-6750Pbegs metabolic panel calcium total Shan A Hammuda PA-C Work Phone: Start: 09-94-9511Prk routine ecg w/least 12 lds w/i&r Shan A Hammuda PA-C Work Phone: Start: 27-23-2344Lq abdominal real time w/image limitedTari Curtis MD Work Phone: Start: 60-12-2023EmvfjrxhpsneaJaqfna N Chidi MD Work Phone: Start: 58-53-0637Qhfrzuoae b surf antibody hbsabTari Curtis MD Work Phone: Start: 27-06-8899Dpm-invasive physiologic study extremity 3 levlsVivian Combs [employer] Work Phone: Start: 87-39-3378Wlnorpijf mammography bi 2-view breast inc cadBredino Combs [employer] Work Phone: Start: 86-16-3107Uamhmsjkxmfdz metabolic panelJelexie Willett [employer] Work Phone: Start: 05-90-3604Tjrtzsosg b core antibody hbcab total Claudia Willett [employer] Work Phone: Start: 19-75-9896Qlii ia hepatitis b surface antigen Claudia Willett BELT PICKERLet Work Phone: Start: 87-92-0496Nmtbjjt function panelVivian Combs [employer] Work Phone: Start: 86-23-1907Evcii dip stick/tablet reagent auto microscopyBecristy Combs [employer] Work Phone: Start: 29-14-9639Yxiuzvfzum exam abdomen 1 viewBecristy Combs [employer] Work Phone: Start: 13-89-0691Rm lumbar spine w/contrast material Jasper Cleveland MD Work Phone: Start: 74-72-0149Wydls panelRolan Sim Work Phone: Start: 23-15-7587Mc head/brain w/o contrast material Vivian W [employer] Work Phone: Start: 56-86-4897Ceolbxtfgx exam abdomen 1 viewBecristy Combs [employer] Work Phone: Start: 36-19-9677Hpxov of free thyroxineMichael S Zimmerman Work Phone: Start: 59-53-1872Auvij of gammaglobulin iga igd igg igm eachMichael S Zimmerman Work Phone: Start: 87-39-5477Sdroh of thyroid stimulating hormone tshMichael S Zimmerman Work Phone: Start: 48-72-4300Rmqlf of thyroxine totalMichael S Zimmerman Work Phone: Start: 45-28-3724O-reactive proteinMichael S Zimmerman Work Phone: Start: 75-62-9425Glaujtnx kinase totalMichael S Zimmerman Work Phone: Start: 46-08-1378Oeusronhoa glycosylated n1qHhdeemk S Zimmerman Work Phone: Start: 81-52-6212Htdvrjg dehydrogenase ldhMichael S Zimmerman Work Phone: Start: 58-45-4131Gucidoptrsgzq rate rbc automated Mario Alberto S Zimmerman Work Phone: Start: 95-36-1293Cd abdominal real time w/image limitedFlip Srinivasan Dea [employer] PICKER - [facility] Work Phone: Start: 45-29-8162Gqjxl metabolic panel calcium total Flip Srinivasan Dea [employer] P[employer]ER - [facility] Work Phone: Start: 80-00-3675Opz routine ecg w/least 12 lds w/i&r Jasper Cleveland MD Work Phone: Start: 87-94-2515GSG REPORTHpf ScanningStart: 15-87-0946Zbhcfqn emptying imaging studyBrett W Might Work Phone: Start: 58-99-7705Zl soft tissue head & neck real time imge Samaria Olivera Work Phone: Start: 72-68-7791Tn abdomen & pelvis w/contrast materialCurtis Jean Work Phone: Start: 93-27-5622Tcfqv of lipaseCurtis Jean Work Phone: Start: 14-78-8952Xlxmj count complete auto&auto difrntl wbcCurtis Jean Work Phone: Start: 99-10-5635Duztegiqlscgo metabolic panelBrian B Baggott Work Phone: Start: 66-82-8422Qncwfcykka glycosylated p8yIjwmo B Baggott Work Phone: Start: 59-17-8853Szsnpwq tolerance test gtt 3 specimensBrett W Might Work Phone: Start: 43-86-2803Krqqc metabolic panel calcium total Vivian W Might Work Phone: Start: 37-27-3603Cjmtlsiyyz glycosylated y6xLhpar W Might Work Phone: Start: 56-83-2409Ygmdu panelBrett W Might Work Phone: Start: 73-21-0661Tydajsrnqly direct measurement ldl cholesterolBrett W Might Work Phone: Start: 30-19-8260Ixemvkrfbyc observation [Identifier] in Cervix by Cyto Rhiannon Nam PT Plan of Treatment DateCare ActivityDetailAuthorStart: 79-94-2992Fsjchsqnwmgt 0-64 years Vaccine (2 of 2 - PPSV23)Pneumococcal 0-64 years Vaccine (2 of 2 - PPSV23)[employer] Start: 83-34-4681Lsclhkyleyax 0-64 years Vaccine (2 of 2)Pneumococcal 0-64 years Vaccine (2 of 2)[employer] Work Phone: start: 85-53-8532Hwozuaeuk for malignant neoplasm of colonBON HON[facility]HE[facility] CENTERSprinklrStart: 39-46-2239BLF test (Diabetes, CKD 3-4, OR last GFR 15-59)GFR test (Diabetes, CKD 3-4, OR last GFR 15-59)[facility] [employer] InternationalStart: 99-29-2837AFNZP-19 Vaccine ( season)COVID-19 Vaccine ( season)Screaming SportsComment on above:Postponed from 05/27/2025 (Patient Refused)Start: 47-50-1282Klmpaymfju MonitoringDepression MonitoringBon [facility] CenterPrestoSportsStart: 72-04-4719Nojeqobhx B vaccine (1 of 3 - 19+ 3-dose series)Hepatitis B vaccine (1 of 3 - 19+ 3-dose series)[facility] on above:Postponed from 02/29/1992 (Patient Refused)Start: 47-65-1900IDI screeningHIV screenBon [facility] on above: Postponed from 02/29/1988 (Patient Refused)Start: 73-42-5207Zuysgoeo vaccine (2 of 2)Shingles vaccine (2 of 2)[facility] on above:Postponed from 05/20/2023 (Unavailable)Start: 51-37-3005OGO test (Diabetes, CKD 3-4, OR last GFR 15-59)GFR test (Diabetes, CKD 3-4, OR last GFR 15-59)[facility] Hospitalart: 99-01-2800WJX test (Diabetes, CKD 3-4, OR last GFR 15-59)GFR test (Diabetes, CKD 3-4, OR last GFR 15-59)[facility] Hospitalart: 05-23-2026 GFR test (Diabetes, CKD 3-4, OR last GFR 15-59)GFR test (Diabetes, CKD 3-4, OR last GFR 15-59)[facility] Hospitalart: 27-66-2695Yjwma panelLipidsBon [facility] Centerart: 61-81-9990Hkqry screening for proteinDiabetic Alb to Cr ratio (uACR) testBon [facility] on above:Postponed from 03/23/2025 (Not Indicated)Start: 55-78-0886Lmicpvnozy MonitoringDepression MonitoringBon [facility] Centerart: 35-46-9487Adhyanelpm A1c xsxbesryxrjE2Z test (Diabetic or Prediabetic)[facility] Hospitalart: 01-25-2026 Hemoglobin A1c sjeonzyewiyM5A test (Diabetic or Prediabetic)[facility]: 19-53-2646Ezeuhkndmv MonitoringDepression MonitoringDominion Hospital: 77-89-5184Lxkygmfyr for malignant neoplasm of colonMountain View Regional Medical Centerart: 12-05-2025 End: 59-94-6158Zmhwmfj encounter jgzffkujs99/12/2026 2:00 PM EDT Office Visit [facility] CARDIOLOGY Part of [address] [address] Nathan Ardon MD [address] [place] [phone] 6 month follwo [facility]ARDIOLOGY [facility] HospitalComment on above:6 month follwo upStart: 77-17-9240Zowjpzlbzw MonitoringDepression MonitoringBon [facility] HospitalStart: 72-21-0235UXtO/Tdap/Td vaccine (1 - Tdap)DTaP/Tdap/Td vaccine (1 - Tdap)Bon [facility] HospitalComment on above:Postponed from 02/29/1992 (Patient Refused)Start: 56-46-7730Totkwjlpyboo 50+ years Vaccine (2 of 2 - PCV) Pneumococcal 50+ years Vaccine (2 of 2 - PCV)Bon [facility] HospitalComment on above:Postponed from 05/10/2019 (Patient Refused)Start: 10-24-2025 End: 72-48-0231Plfxoax encounter ngefvkijw76/29/2026 1:00 PM EST Office Visit [facility] UROLOGY Part of [address] [place] [id number] Preethi Garcia, BEL[employer] P[employer]ER - 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 [address] [place] [address] [address] [place], [place] [id number] 3M [facility] Part Griffin HospitalComment on above:3M KUB Start: 38-49-9921Rmmlzldptp A1c alskqoamyloG8G test (Diabetic or Prediabetic)Bon [facility] HospitalStart: 10-10-2025 End: 46-85-8306Zgxsszn encounter khmuiebsn65/15/2026 4:00 PM EST Appointment [facility] Mammography [address] [place], [place] [id number] epic/ptMkettering health hamiltonAsia [employer] Berhad [facility] MammographyComment on above:epic/pt Start: 10-08-2025 End: 47-72-9325Rttczdt encounter xxjmwajhb48/13/2026 1:20 PM EST Office Visit [facility] CARDIOLOG[facility] Part [address] [address] Nathan Ardon MD [address] [place] [address] [place] [address] 3 month [facility] on above:3 month follow upStart: 98-77-8632LQI test (Diabetes, CKD 3-4, OR last GFR 15-59)GFR test (Diabetes, CKD 3-4, OR last GFR 15-59)[facility]: 09-07-2025 GFR test (Diabetes, CKD 3-4, OR last GFR 15-59)GFR test (Diabetes, CKD 3-4, OR last GFR 15-59)[facility]: 09-03-2025 End: 02-18-3884Sucrxee encounter jggqtjtis27/09/2025 2:00 PM EST Office Visit [facility] CARDIOLOGY [address] [address] Nathan Ardon MD [address] [place] [address] [place] [address] [facility] above:3 monthStart: 08-21-2025 End: 19-12-4364Tbqendy encounter tmaqaztkl18/26/2025 2:00 PM EST Appointment [facility] Specialty Clinic (MOB) [address] [place], [place] [phone] Allergy injections. Dr Dixon.[facility] ([facility])Comment on above: Allergy injections. Dr Dixon.Start: 08-15-2025 End: 80-86-5932Sbtuhcb encounter wgrlbxidp25/20/2025 2:00 PM EST Appointment [facility] (MOB) [address] [place] [address] [address] Dioxn[address] ([facility]B)Comment on above: Allergy injections. Dr Dixon.Start: 04-10-2372Rmxhweil screeningDiabetic retinal examSentara Princess Anne Hospital on above:Postponed from 10/17/2020 (Patient Refused)Start: 08-08-2025 End: 47-96-8949Ekvbmpx encounter uzcwibrmc67/13/2025 2:00 PM EST Appointment [facility] (MOB) [address] [place] [address] Dixon[address] ([facility])Comment on above: Allergy injections. Dr Dixon.Start: 08-01-2025 End: 76-25-4783Fhldrxu encounter vpvitntng54/06/2025 2:00 PM EST Appointment [facility] (MOB) [address] [place] [address] Dixon[address] ([facility])Comment on above: Allergy injections. Dr Dixon.Start: 07-29-2025 End: 23-40-1759Ouchmth encounter procedureSycamore Medical Center MRIComment on above:media sched w ptStart: 05-82-9986MGZ test (Diabetes, CKD 3-4, OR last GFR 15-59)GFR test (Diabetes, CKD 3-4, OR last GFR 15-59)[facility] Start: 07-25-2025 End: 40-41-1356Exuvigp encounter dfvijdglh38/30/2025 2:00 PM EDT Appointment [facility] (MOB) [address] [place] [address] Dixon[address] ([facility])Comment on above: Allergy injections. Dr Dixon.Start: 13-11-9841Ytnzqalutq A1c bknegckncplO3K test (Diabetic or Prediabetic)[facility] HospitalStart: 07-23-2025 End: 88-36-8741Wyhrqodac to same day surgery uvgdmc0507/23/2025 7:30 AM EDT - 07/23/2025 8:35 AM EDT Surgery [facility] OR [address] [place] [address] [place] Everett MD [address] [place] [address], [address] [place] [address] EXTRACORPOREAL SHOCK WAVE LITHOTRIPSYMT ORComment on above:EXTRACORPOREAL SHOCK WAVE LITHOTRIPSYStart: 07-23-2025 End: 26-66-7766Ieqxnryalox xtrcorp shock [facility] HospitalStart: 05-08-6656Epcgillqwu hospital visit by fantqevwe79/28/2025 7:30 AM EDT Hospital Encounter [facility] OR [address] [id number] Florida Everett MD [address] [facility], [address] [place] [address] [facility] ORStart: [id number] test (Diabetes, CKD 3-4, OR last GFR 15-59)GFR test (Diabetes, CKD 3-4, OR last GFR 15-59)[facility] CenterZefanclubSentara Obici HospitalStart: 07-18-2025 End: 52-08-5074Usxhkdk encounter /23/2025 1:45 PM EDT Office Visit [facility] Pod[facility]ry [address] [place] [id number] Meera Mike DPM [address] [place] [address] [address] [facility]SW[facility] Comment on above:3 MONTHSStart: 07-17-2025 End: 47-23-7960Qtqkayo encounter procedureEL[facility] ([facility]B)Comment on above:Allergy injections. Dr Dixon.Media/scheduled with ptStart: 07-16-2025 Influenza vaccinationFlu vaccine (#1)Bon Lorena GaxiolaSentara Obici HospitalComment on above: Postponed from 04/26/2025 (Unavailable)Start: 55-10-0024Kacszbyc foot examinationDiabetic foot examBon SecZefanclubSentara Obici HospitalStart: 07-04-2025 End: 78-98-7286Jpnhuzt encounter dcurrdcdo47/09/2025 2:30 PM EDT Appointment [facility] Mammography [address] [place], [place] [phone] epic/ptMercy [facility] MammographyComment on above:epic/pt Start: 84-97-3164PUN test (Diabetes, CKD 3-4, OR last GFR 15-59)GFR test (Diabetes, CKD 3-4, OR last GFR 15-59)Bon Lorena GaxiolaSentara Obici HospitalStart: 06-19-2025 End: 21-59-3775Pfjhvrm encounter xdkodnvtx68/24/2025 1:30 PM EDT Appointment [facility] ([facility]) [address] [place], [place] [phone] Allergy injections. Dr Dixon.[facility] ([facility])Comment on above: Allergy injections. Dr Dixon.Start: 06-14-2025 End: 64-80-6232Pwhlbrk encounter ewifdpsrf18/19/2025 5:15 PM EDT Appointment [facility] CT Scan [address] [phone] aNthan Ardon MD [address] [place] [phone] epic - [facility] w[facility] CT ScanComment on above: epic - omar w/ ptStart: 06-12-2025 End: 49-78-5110Cdgkjra encounter owvncujts47/17/2025 2:40 PM EDT Office Visit [facility] [address] [phone] Vivian Lemos, BELT PICKER - 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 [address] [place] [address] hospital f/u-heart murmur and lightheaded,acute kidney injuryClarke County Hospital TiffinComment on above:hospital f/u-heart murmur and lightheaded,acute kidney injuryStart: 94-89-3590OWILA-19 Vaccine ( season)COVID-19 Vaccine ( season)Bon [employer] [facility] HospitalComment on above:Postponed from 05/27/2024 (Unavailable)Start: 50-99-7851XIFPI-19 Vaccine ()COVID-19 Vaccine ( season)Bon [place] [facility] HospitalComment on above:Postponed from 05/27/2024 (Unavailable)Start: 06-11-2025 Hepatitis B vaccine (1 of 3 - 19+ 3-dose series)Hepatitis B vaccine (1 of 3 - 19+ 3-dose series)Bon [employer] HealthComment on above:Postponed from 02/29/1992 (Patient Refused)Start: 69-13-6610WOT screeningHIV screenBon [facility] HospitalComment on above:Postponed from 02/29/1988 (Patient Refused)Start: 88-30-8981Ipqcgmmi vaccine (2 of 2)Shingles vaccine (2 of 2)Bon [facility] HospitalComment on above:Postponed from 05/20/2023 (Patient Refused)Start: 21-59-1699Ntlczpmvpw A1c ninmwzpesoeG6Y test (Diabetic or Prediabetic)Bon [facility] HospitalStart: 06-07-2025 End: 72-75-0556Oqkfn metabolic 2000 panel - Serum or PlasmaBasic Metabolic Panel Lab Routine BAILEE (acute kidney injury) Expected: 06/07/2025, Expires: 05/31/[address] [facility] Board[facility] HospitalComment on above:Expected: 06/07/2025, Expires: 05/31/2026Start: 06-04-2025 End: 62-49-2561Ccqvled encounter rplnpatvc38/09/2025 9:00 AM EDT Office Visit [facility] C[facility]IOLOG[facility] Part [address] [phone] Nathan Ardon MD [address] [place] [address] [place] [address] low BP/ med changesJ.W. [facility] Part Griffin HospitalComment on above:low BP/ med changesStart: 05-29-2025 End: 83-68-6998Biysmta encounter procedureMTHZ Physical TherapyComment on above: Allergy injections. Dr Dixon.Start: 57-72-7104NNKSI-19 Vaccine ( season)COVID-19 Vaccine ( season)[facility] HospitalStart: 05-24-2025 End: 29-12-5264Btvizuq encounter mvwmroxzk30/29/2025 1:45 PM EDT Appointment [facility] Physical Therapy [address] [place] [address] Olivia Nam PT UPOCMTHZ Physical TherapyComment on above:UPOCStart: 05-23-2025 End: 68-89-7928Zvigtqu encounter procedureCHIL[facility] Part of [facility] Children'S HospitalComment on above:1 year follow upAllergy injections. Dr Dixon. Start: 05-20-2025 End: 86-65-2119Qhrpdhm encounter gskqovbjd95/25/2025 1:30 PM EDT Appointment [facility] Physical Therapy [address] [place] [address] Hussein Rich PTAMTHZ Physical TherapyStart: 14-29-6585Ulqzyymjvd MonitoringDepression MonitoringBON MOUNT CARMEL HEALTH SYSTEMStart: 86-36-6948Iqtunyilq vaccinationBON MOUNT CARMEL HEALTH SYSTEMComment on above:Postponed from 04/26/2024 (Patient Refused) Postponed from 04/26/2025 (Patient Refused)Start: 37-39-7703Eswbl panelLipidsCarilion Clinic St. Albans HospitalComment on above:Postponed from 03/23/2025 (Not Indicated) Start: 05-16-2025 End: 01-55-4797Xplfvpb encounter procedureELMHURST HOSPITAL CENTER Physical TherapyComment on above: Allergy injections. Dr Dixon.Start: 05-16-2025 End: 91-00-4462Uccnrko encounter vsjwwmapv46/21/2025 11:20 AM EDT Office Visit [facility] [address] [place] [phone] Vivian Lemos, BELT PICKER - 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 [address] [place] [address] Abnormal bone density test. Figure out next steps and talk about my ears.//Auto CMeCass County Health SystemComment on above:Abnormal bone density test. Figure out next steps and talk about my ears.//Auto CStart: 05-13-2025 End: 61-28-0319Gvxbcok encounter htbyveclo83/18/2025 2:30 PM EDT Appointment [facility] Physical Therapy [address] [place] [address] Olivia Nam PTMTHZ Physical TherapyStart: 05-10-2025 End: 60-54-1314Omrasnf encounter tsogmyswm89/15/2025 2:30 PM EDT Appointment [facility] Physical Therapy [address] [place], [place] [phone] RichHussein, PTAMTHZ Physical TherapyStart: 05-09-2025 End: 49-71-3665Pruzryn encounter procedureMTHZ Physical TherapyComment on above: Allergy injections. Dr Dixon.Start: 05-02-2025 End: 69-85-8864Qhrxgez encounter procedureChillicothe Va Medical CenterComment on above:epic/ptAllergy injections. Dr Dixon.Start: 04-30-2025 End: 03-68-0943Rhmvkkh encounter stmegcncj83/05/2025 12:45 PM EDT Appointment [facility] Physical Therapy [address] [place] [address] Olivia Nam, PT UPOCMTHZ Physical TherapyComment on above:UPOCStart: 04-29-2025 Subsequent hospital visit by /04/2025 3:00 PM EDT Hospital Encounter [facility] Specialty Clinic (MOB) [address] [place], [place] [phone] [facility] (MOB)Start: 04-29-2025 End: 70-68-7118Txtsjxv encounter procedureMTHZ Physical TherapyComment on above: Allergy injections. Dr Dixon.Start: 76-59-2101Dizgjtpic vaccinationFlu vaccine (#1)[place] [facility] CenterStart: 04-25-2025 End: 04-57-7299Dlrruqg encounter ivuolsxft10/31/2025 4:20 PM EDT Office Visit [facility] [address] [phone] Vivian Lemos, BELT PICKER - 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 [address] [place] [address] I m still having trouble with my ears.[facility] CenterComment on above:I m still having trouble with my ears.Start: 04-25-2025 End: 65-14-6600Xraypoe encounter procedureMTHZ Physical TherapyComment on above: Allergy injections. Dr Dixon.Start: 04-22-2025 End: 60-55-6094Bhtawhd encounter procedureMTHZ Physical TherapyComment on above: Allergy injections. Dr Dixon.Start: 04-18-2025 End: 69-86-6250Dlflend encounter procedureMTHZ Physical TherapyComment on above: Allergy injections. Dr Dixon.Start: 04-17-2025 End: 18-06-8386Dczonoi encounter paxmwquib19/23/2025 2:15 PM EDT [facility] [place] [facility] [address] [facility] [address] [place] [address] Meera Mike, DPM [address] [facility] [address] [place] [address] 8 weeksMerSelect Specialty Hospital-Flint PodiatryComment on above:8 weeksStart: 04-15-2025 End: 46-93-4221Zwfmjma encounter procedureMTHZ Physical TherapyComment on above: Allergy injections. Dr Dixon.Start: 04-12-2025 End: 01-05-3791Nhsholc encounter rnokupcce70/18/2025 3:15 PM EDT Appointment [facility] MRI [address] [phone] media/ptMThe [facility] MRIComment on above:media/ptStart: 04-11-2025 End: 92-01-0224Enqurwp encounter procedureMTHZ Physical TherapyComment on above: Allergy injections. Dr Dixon.Start: 04-08-2025 End: 53-55-8701Dehgfxb encounter zqsjioqjh33/14/2025 2:15 PM EDT Appointment [facility] Physical Therapy [address] [place] [phone] Alanna Chappell, PTAMTHZ Physical TherapyStart: 48-48-7784Xuqiqbmijw Monitoring Depression MonitoringBON MOUNT CARMEL HEALTH SYSTEMStart: 99-91-3901Wjfpspgj foot examinationDiabetic foot examBON St. Charles Hospitalart: 28-88-9169JZJ test (Diabetes, CKD 3-4, OR last GFR 15-59)GFR test (Diabetes, CKD 3-4, OR last GFR 15-59)[facility] SYSTEMStart: 96-02-2646Grbkhdpmar A1c mqvutljiiarD2F test (Diabetic or Prediabetic)BON St. Charles Hospitalart: 97-42-4164Prbzo panelLipidsBON MOUNT CARMEL HEALTH SYSTEMStart: 93-81-8305Vuojp screening for protein Diabetic Alb to Cr ratio (uACR) testBON MOUNT CARMEL HEALTH SYSTEMStart: 02-14-2025 End: 02-30-9356Kocxmwb encounter rqkuejvzy32/22/2025 3:00 PM EDT Office Visit [facility] [place] [facility] [address] [facility] [address] [place] [address] Meera Mike DPM [address] [facility] [address] [place] [address] 6 WEEKSMerSelect Specialty Hospital-Flint PodiatryComment on above:6 WEEKSStart: 01-29-2025 End: 77-03-4915Oiqkiew encounter irwpilkjc71/06/2025 10:45 AM EDT Appointment [facility] Physical Therapy [address] [place], [place] [phone] Olivia Block PT needs to schedule more. pre cert note inMTHZ Physical TherapyComment on above:needs to schedule more. pre cert note inStart: 01-24-2025 End: 43-77-0029Bypbbyg encounter qgzemworw46/01/2025 12:45 PM EDT Appointment [facility] Physical Therapy [address] [place], [place] [phone] Alanna Chappell PTAMTHZ Physical TherapyStart: 01-22-2025 End: 77-57-3346Odymqng encounter oeaamunkm48/29/2025 11:30 AM EDT Appointment [facility] Physical Therapy [address] [place], [place] [phone] Hussein Rich PTAMTHZ Physical TherapyStart: 01-17-2025 End: 75-57-2665Fhnqgtx encounter jcpwqmery71/24/2025 2:45 PM EDT Appointment [facility] Physical Therapy [address] [place] [address] Makayla Lozoya PTAMTHZ Physical TherapyStart: 01-14-2025 End: 10-58-6676Yiporwo encounter ezjcpzmoc85/21/2025 12:15 PM EDT Appointment [facility] Physical Therapy [address] [place] [address] Makayla Lozoya PTAMTHZ Physical TherapyStart: 01-10-2025 End: 69-28-3526Prgrqoz encounter dtljaluzr68/17/2025 1:45 PM EDT Appointment [facility] Physical Therapy [address] [place] [address] Hussein Rich PTAMTHZ Physical TherapyStart: 01-08-2025 End: 15-27-5163Pycmbvn encounter ecjdgrsem50/15/2025 2:30 PM EDT Appointment [facility] Physical Therapy [address] [place] [address] Hussein Rich PTA upoc- olivia carlo patient, blocked him for 15 minutes at 2:30.[facility] Physical TherapyComment on above:upoc- olivia carlo patient, blocked him for 15 minutes at 2:30.Start: 01-03-2025 End: 88-21-1160Jcogujw encounter quwsgqijv70/10/2025 3:30 PM EDT Office Visit [facility] [place] [facility] [address] [facility] [address] [place] [address] Meera Mike DPM [address] [facility] [address] [place] [address] 6 WEEKSWalter P. [facility]uther [facility] PodiatryComment on above:6 WEEKSStart: 01-02-2025 End: 91-54-4241Lnfocwy encounter procedureMT Physical TherapyComment on above: KAVEH BAKER PTStart: 12-31-2024 End: 63-71-9127Ijgkbqq encounter xxhwwuuly53/07/2025 12:45 PM EDT Appointment [facility] Physical Therapy [address] [place] [address] Alanna Chappell PTAMTHZ Physical TherapyStart: 12-26-2024 End: 36-25-6731Gmjkmsc encounter pswjerlhx58/02/2025 1:30 PM EDT Appointment [facility] Physical Therapy [address] [place] [address] Phu Mora Physical TherapyStart: 12-24-2024 End: 20-56-6962Fooxfag encounter znankdcsf99/31/2025 12:45 PM EDT Appointment [facility] Physical Therapy [address] [place] [address] Alanna Chappell PTAMTHZ Physical TherapyStart: 12-19-2024 End: 00-72-0491Qjxygiy encounter procedureMTHZ Physical TherapyStart: 12-17-2024 End: 95-54-1999Bpzcsud encounter bfyfgnudr02/24/2025 12:45 PM EDT Appointment [facility] Physical Therapy [address] [place], [place] [phone] Alanna Chappell PTAMTHZ Physical TherapyStart: 12-12-2024 End: 72-23-9474Ebdzajh encounter /19/2025 1:45 PM EDT Appointment [facility] Physical Therapy [address] [place] [address] Phu Mora Physical TherapyStart: 12-10-2024 End: 71-62-0945Rdddxgn encounter dgsarrldm28/17/2025 1:30 PM EDT Appointment [facility] Physical Therapy [address] [place], [place] [phone] Disha Escamilla PTAMTHZ Physical TherapyStart: 88-32-8850Wktfosvpor MonitoringDepression MonitoringBON MOUNT CARMEL HEALTH SYSTEMStart: 72-18-3267UCL test (Diabetes, CKD 3-4, OR last GFR 15-59)GFR test (Diabetes, CKD 3-4, OR last GFR 15-59)[facility] DANVILLEStart: 12-05-2024 End: 83-98-8133Ynoteob encounter pxwnmbyol80/12/2025 2:30 PM EDT Appointment [facility] Physical Therapy [address] [place] [address] Makayla Lozoya PTAMTHZ Physical TherapyStart: 12-03-2024 End: 72-39-5157Zimngqu encounter ybrphnqnn09/10/2025 12:30 PM EDT Appointment [facility] Physical Therapy [address] [place] [address] Makayla Lozoya PTAMTHZ Physical TherapyStart: 11-29-2024 End: 70-56-2031Ymspxbk encounter xijizblke24/06/2025 11:15 AM EST Appointment [facility] Physical Therapy [address] [place] [address] Alanna Chappell PTAMTHZ Physical TherapyStart: 11-28-2024 End: 01-83-7801Sjxbyif encounter zprurvheb10/05/2025 11:00 AM EST Office Visit [facility] [address] [place] [address] Vivian Lemos APRN - 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 [address] [place] [address] sinus issuesClarke County Hospital TiffinComment on above: sinus issuesStart: 86-27-5698Zxyclumywp A1c wvblsuubjzzS5B test (Diabetic or Prediabetic)[facility] SYSTEMStart: 10-25-2024 End: 30-40-8687Hnwoyyl encounter flmsvycfz33/30/2025 9:45 AM EST Office Visit [facility] Podiatry [address] [place] [phone] Meera Mike DPM [address] [address] 3RD POST OPWal[facility]. [facility] Comment on above:3RD POST OPStart: 10-11-2024 End: 40-13-7618Hzgmuey encounter bivdxzblh06/16/2025 2:00 PM EST Office Visit [facility] Podiatry [address] [place] [phone] Meera Mike DPZarina [address] [address] 2ND POST [facility] Podiatry Comment on above:2ND POST OPStart: 10-01-2024 End: 44-53-8663Lrnaqnf encounter tpmqazwsa88/06/2025 2:00 PM EST Office Visit [facility] [address] [place] [phone] Vivian Lemos APRN - 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 [address] [place] [address] 6 month f/uMercy [facility] Hospital TiffinComment on above:6 month f/uStart: 26-04-7707XRpB/Tdap/Td vaccine (1 - Tdap)DTaP/Tdap/Td vaccine (1 - Tdap)KEAGAN LITO [facility] HOSPITALComment on above:Postponed from 02/29/1992 (Patient Refused)Start: 09-27-2024 End: 46-43-3924Wkzgcqj encounter udlekqplh50/02/2025 10:45 AM EST Office Visit [facility] [address] [facility] [address] [place] [address] Meera Mike DPM [address] [facility] [address] [place] [address] INITIAL POST OPWalter P. Reuther [facility]iatric Hospital PodiatryComment on above:INITIAL POST OPStart: 09-14-2024 End: 19-92-0010Msevystpr to same day surgery egylli4109/14/2024 8:00 AM EST - 09/14/2024 11:00 AM EST Surgery [facility] OR [address] [place] [address] Meera Mike DPM [address] [facility] [address] [place] [address] REMOVE EXTERNAL FIXATOR LEFT FOOT [facility] ORComment on above:REMOVE EXTERNAL FIXATOR LEFT FOOTStart: 09-14-2024 End: 59-29-0768Atnvtpanieh subtalarFOOT ARTHRODESIS Charcot ankle, left Diabetes (HCC) 09/14/2024 8:00 AM [facility]: 09-14[facility]2024 End: 80-29-2023Zuigqfx external fixation system under anesFOOT EXTERNAL FIXATOR REMOVAL Charcot ankle, left Diabetes (HCC) 09/14/2024 8:00 AM [facility] HospitalStart: 47-70-5231Ytnskwrxiq hospital visit by physician 09/14/2024 8:00 AM EST Hospital Encounter [facility] OR [address] [place] [address] YlygclyjxMeera Mike DPM [address] [facility] [address] [place] [address] [facility] ORStart: 09-04-2024 End: 96-58-8881Nioqxpe encounter aqmgqzixf79/10/2024 2:30 PM EST Office Visit [facility] Podiatry [address] [place] [phone] Meera Mike, PRANAV [address] [facility] [place] [address] 2 WEEKSWalter P. Reuther [facility]iatric Hospital PodiatryComment on above:2 WEEKSStart: 08-21-2024 End: 69-67-5074Vmimzcm encounter rtpgpycoc66/26/2024 2:00 PM EST Office Visit [facility] Podiatry [address] [place] [phone] Meera Mike, PRANAV [address] [facility] [place] [address] 3RD POST OP [facility] PodiatryComment on above:3RD POST OPStart: 08-07-2024 End: 27-30-1677Adacqdr encounter procedureMERCY HEALTH [facility] Part of [facility] Children'S HospitalComment on above:Oropharyngeal dysphagia, wjenflpw9KM POST OPStart: 47-79-7887Ubdsk panelLipidsSOVAH HEALTH - DANVILLEStart: 55-67-0596Xqwkh screening for proteinDiabetic Alb to Cr ratio (uACR) testSOVAH HEALTH - DANVILLEStart: 07-26-2024 End: 13-39-1143Xmagptd encounter awiicvfct69/31/2024 8:00 AM EDT Office Visit [facility] Podiatry [address] [place] [phone] Meera Mike, PRANAV [address] [place] [facility], [place] [phone] INITIAL POST OP [facility] PodiatryComment on above:INITIAL POST OPStart: 07-23-2024 End: 10-48-5086Atlgbdytjwf uniplane external fixation systemANKLE EXTERNAL FIXATOR APPLICATION Charcot ankle, left Closed dislocation of tarsal joint of left foot 07/23/2024 2:00 PM [facility] Hospitaltart: 07-23-2024 End: 06-94-4970Tik skel fixj metar fx w/manjFOOT CLOSED REDUCTION PINNING Charcot ankle, left Closed dislocation of tarsal joint of left foot 07/23/2024 2:00 PM [facility] Hospitaltart: 55-49-9350Faqluhcn screening Diabetic retinal examBON SECOURS [employer] HEALTHComment on above:Postponed from 10/17/2020 (Not Indicated)Start: 87-58-2671Zuyjgedebanq 0-64 years Vaccine (2 - PCV)Pneumococcal 0-64 years Vaccine (2 - PCV)[facility] [employer] HEALTHComment on above:Postponed from 05/10/2019 (Patient Refused)Start: 79-27-3082Sqlmcxicmyak 0-64 years Vaccine (2 of 2 - PCV)Pneumococcal 0-64 years Vaccine (2 of 2 - PCV) [facility] [employer] HEALTHComment on above:Postponed from 05/10/2019 (Patient Refused)Start: 06-95-3217PSG test (Diabetes, CKD 3-4, OR last GFR 15-59)GFR test (Diabetes, CKD 3-4, OR last GFR 15-59)[facility] [employer] HEALTHStart: 06-14-2024 GFR test (Diabetes, CKD 3-4, OR last GFR 15-59)GFR test (Diabetes, CKD 3-4, OR last GFR 15-59)BON [employer] HEALTHStart: 72-48-5676TXMHB-19 Vaccine (#1) COVID-19 Vaccine (#1)[facility] [employer] HEALTHComment on above:Postponed from 1973 (Not Indicated)Start: 76-59-2812PENTK-19 Vaccine () COVID-19 Vaccine ( season)[facility] [employer] HEALTHComment on above: Postponed from 05/27/2023 (Not Indicated)Start: 46-01-3876Oartguso foot examinationDiabetic foot examBON [facility]OU[facility] [employer] HEALTHComment on above:Postponed from 03/18/2022 (Not Indicated)Start: 21-41-3104Tovwtaksz B vaccine (1 of 3 - 19+ 3-dose series)Hepatitis B vaccine (1 of 3 - 19+ 3-dose series)BON [employer] [facility]PITALComment on above:Postponed from 02/29/1992 (Not Indicated)Start: 95-87-2111Pyymjlduk B vaccine (1 of 3 - 3-dose series)Hepatitis B vaccine (1 of 3 - 3-dose series)BON [facility] MEDICAL CENTERSmart Energy HEALTHComment on above:Postponed from 1973 (Not Indicated)Start: 69-21-5755AIK screeningHIV screenBON [facility] MESAMobOz Technology srl [facility]OSPITALComment on above:Postponed from 02/29/1988 (Patient Refused)Start: 52-37-7629Iyecqfgq vaccine (2 of 2)Shingles vaccine (2 of 2)BON [employer] [facility]OSPITALComment on above:Postponed from 05/20/2023 (Unavailable)Start: 05-16-2024 End: 69-25-9295Owsdprk encounter /21/2024 1:40 PM EDT Office Visit [facility] [address] [phone] Nathan Ardon MD [address] [place] [phone] 1 [facility] HospitalComment on above:1 yearStart: 05-03-2024 End: 80-85-5579Iqlpzzu encounter htnthvazb13/08/2024 1:00 PM EDT Appointment [facility] Physical Therapy [address] [place] [address] Phu Mora Physical TherapyStart: 05-01-2024 End: 49-74-2541Bahxlof encounter utbrekdwy03/06/2024 2:45 PM EDT Appointment [facility] Physical Therapy [address] [place] [address] Phu Mora Physical TherapyStart: 33-15-8429Snlbwbcyp vaccinationBON SECAF83 [facility] HOSPITALStart: 04-25-2024 End: 79-65-2112Vljuocp encounter ecdyjeohp97/31/2024 1:45 PM EDT Appointment [facility] Physical Therapy [address] [place] [address] Sonia Baum, PT UPOCMTHZ Physical TherapyComment on above:UPOCStart: 04-23-2024 End: 26-91-7248Vwllpux encounter traqvkghw16/29/2024 1:15 PM EDT Appointment [facility] Physical Therapy [address] [place] [address] Phu Mora Physical TherapyStart: 04-18-2024 End: 35-40-2706Qqnyatm encounter ihwwtuuww25/24/2024 3:00 PM EDT Appointment [facility] Physical Therapy [address] [place] [address] Phu Mora Physical TherapyStart: 04-16-2024 End: 88-08-2526Uciiqgl encounter /22/2024 1:00 PM EDT Appointment [facility] Physical Therapy [address] [place] [address] Phu Mora Physical TherapyStart: 03-28-2024 End: 25-73-3579Jxkxvvc encounter pwqhffujn83/03/2024 2:00 PM EDT Office Visit [facility] [address] [place] [phone] Vivian Lemos, BELT PICKER - 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 [address] [phone] 6 MONTHClarke County Hospital TiffinComment on above:6 MONTHStart: 31-36-8149Iaxwqraxj vaccinationFlu vaccine (#1)[facility]ALTH SYSTEMComment on above:Postponed from 04/26/2023 (Unavailable)Start: 03-24-2024 Depression MonitoringDepression MonitoringBON MOUNT CARMEL HEALTH SYSTEMStart: 79-20-3278Pccptjajav A1c mpgbztnqoraL1M test (Diabetic or Prediabetic)[facility] SYSTEMStart: 03-08-2024 End: 33-06-0189Avjjgop encounter vfzazocyq17/13/2024 1:45 PM EDT Appointment [facility] Physical Therapy [address] [place] [address] Phu Mora A NEW REFERRAL FOR SHOULDER PAIN. SENT REQUEST TO ORIGINAL REFERRING DOCTOR TO SIGN OFF ON ADDING IT TO POCKSHZ Physical TherapyComment on above:NEW REFERRAL FOR SHOULDER PAIN. SENT REQUEST TO ORIGINAL REFERRING DOCTOR TO SIGN OFF ON ADDING IT TO POCStart: 03-06-2024 End: 47-91-4704Xiagsug encounter mjxtbqzja33/11/2024 1:15 PM EDT Office Visit [facility] [address] [facility] [address] [place] [address] Roxie Martini, DO [address] [place] [address] follow upCH[facility] Medical CenterComment on above:follow upStart: 2024 End: 97-81-9372Pjztjgv encounter wohxxioix39/04/2024 1:45 PM EDT Appointment [facility] Physical Therapy [address] [place] [address] Génesis Hickman, PTAMTHZ Physical TherapyStart: 02-23-2024 End: 16-67-9039Toynnez encounter nwurpjuuw19/30/2024 3:00 PM EDT Appointment [facility] Physical Therapy [address] [place] [address] Lary Rea, PTAMTHZ Physical TherapyStart: 02-14-2024 End: 83-31-4324Cawpnke encounter /21/2024 3:00 PM EDT Appointment [facility] Physical Therapy [address] [place] [address] Sahara Strauss, PTMTHZ Physical TherapyStart: 02-08-2024 End: 14-47-1785Kdencyx encounter twylilfrl61/15/2024 1:15 PM EDT Appointment [facility] Physical Therapy [address] [place] [address] Phu Mora AMTHSusan Physical TherapyStart: 02-06-2024 End: 78-36-6743Iccsdsw encounter szefsadht32/13/2024 12:30 PM EDT Appointment [facility] Physical Therapy [address] [place] [address] Dread Sunshine PTAMTHZ Physical TherapyStart: 02-01-2024 End: 18-66-6887Wnipsma encounter yrfxmynun70/08/2024 2:30 PM EDT Appointment [facility] Physical Therapy [address] [place] [address] Dread Sunshine PTAMTHZ Physical TherapyStart: 01-30-2024 End: 48-67-4441Xsrigwo encounter /06/2024 2:30 PM EDT Appointment [facility] Physical Therapy [address] [place] [address] Phu Mora Physical TherapyStart: 01-25-2024 End: 70-80-8534Cmqzixv encounter uwfnikrjx35/01/2024 2:45 PM EDT Appointment [facility] Physical Therapy [address] [place] [address] Phu Mora Physical TherapyStart: 01-23-2024 End: 49-55-6401Qshuhqv encounter /29/2024 2:30 PM EDT Appointment [facility] Physical Therapy [address] [place] [address] Disha Escamilla PTAMTHZ Physical TherapyStart: 12-27-2023 End: 49-59-4539Ohrlybl encounter yhwpicdby63/02/2024 1:30 PM EDT Office Visit [facility] CARDIOLOGY Part [address] [address] Chen Rocha PA-C [address] [place] [address] leg edema, had labs done [facility] Part [facility] HospitalComment on above:leg edema, had labs doneStart: 09-28-2023 End: 58-10-6085Vssfxzg encounter kwvhqqwqi18/03/2024 3:40 PM EST Office Visit [facility] [address] [place] [phone] Vivian Lemos, BELT PICKER - 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 [address] [place] [address] 6 [facility] TiffinComment on above:6 monthStart: 94-43-5224Fjgimnjuyi MonitoringDepression MonitoringSOVAH HEALTH - DANVILLEStart: 69-64-9233CZhW/Tdap/Td vaccine (1 - Tdap)DTaP/Tdap/Td vaccine (1 - Tdap)[facility] Centerment on above:Postponed from 02/29/1992 (Patient Refused)Start: 87-32-7529RJY test (Diabetes, CKD 3-4, OR last GFR 15-59)GFR test (Diabetes, CKD 3-4, OR last GFR 15-59)[facility] Start: 97-72-3702Nduikvzhns A1c jufuwntcdrtV2M test (Diabetic or Prediabetic)[facility] Centerart: 65-90-0312Qgwfu panelLipidsSOVAH HEALTH - DANVIL[facility] Start: 88-10-4569Kuoeb screening for proteinDiabetic Alb to Cr ratio (uACR) test [facility] DANVILLEStart: 06-22-2023 End: 17-53-1086Awxonux encounter oqckefbgi44/27/2023 8:40 AM EDT Office Visit [facility] [address] [place] [phone] Vivian Lemos, JOSSE - 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 [address] [place] [address] Hospital f/u-PneumoniaClarke County Hospital TiffinComment on above:Hospital f/u-PneumoniaStart: 17-26-9881Dteeqjnz retinal examDiabetic retinal examSOVAH HEALTH - DANVILLEComment on above:Postponed from 10/17/2020 (Not Indicated)Start: 21-94-8927Kuherikw screeningDiabetic retinal examPioneer Community Hospital of Patrick on above:Postponed from 10/17/2020 (Not Indicated) Start: 30-68-0353Eynfmpkxaf MonitoringDepression MonitoringSOVAH HEALTH - DANVILLEStart: 91-76-2941Rlvazwexl vaccinationSOVAH HEALTH - DANVILLEComment on above:Postponed from 05/27/2022 (Patient Refused)Postponed from 04/26/2022 (Patient Refused)Postponed from 04/26/2023 (Patient Refused)Start: 05-20-2023 Shingles vaccine (2 of 2)Shingles vaccine (2 of 2)[facility] SYSTEMStart: 05-16-2023 End: 39-79-9984Roqteon encounter odpweurts99/21/2023 Office Visit Cardiology Nathan Ardon MD [address] [place] [address] [facility] HospitalStart: 61-18-3421Oizznrwpl for malignant neoplasm of breastBreast cancer screenBON MOUNT CARMEL HEALTH SYSTEMStart: 03-30-2023 End: 85-80-0325Aeyptnd encounter ganycbmsm05/05/2023 Office Visit Cardiology Nathan Ardon MD [address] [place] [address] [facility] HospitalStart: 03-24-2023 End: 04-96-9278Svoqzkl encounter jvcryubjf70/29/2023 Office Visit Primary Care Vivian Lemos, BELT PICKER - 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 [address] [place], [place] [phone] (Work) [facility] TiffinStart: 64-88-7373HRVCX-19 Vaccine (#1)COVID-19 Vaccine (#1)[facility] SYSTEMComment on above: Postponed from 1973 (Not Indicated)Start: 27-07-1626AYYQV-19 Vaccine (1) COVID-19 Vaccine (1)[facility] HEALTHComment on above:Postponed from 1978 (Not Indicated)Start: 89-74-9575Yyrtyizhgm MonitoringDepression MonitoringBON MOUNT CARMEL HEALTH SYSTEMStart: 24-06-3620Hpehdnsz foot examination Diabetic foot examBON MOUNT CARMEL HEALTH SYSTEMComment on above:Postponed from 03/18/2022 (Patient Refused)Start: 04-06-8683Xcuzikqrew A1c tuawduxtjtxT8W test (Diabetic or Prediabetic)[facility]ON [facility] MEDICAL CENTERSmart Energy [facility]OSPITALStart: 32-95-6523Afxaliqbf B vaccine (1 of 3 - Risk 3-dose series)Hepatitis B vaccine (1 of 3 - Risk 3-dose series)[facility] CENTERSmart Energy HEALTHComment on above:Postponed from 02/29/1992 (Patient Refused)Start: 42-47-8261PJG screeningHIV screenBON [facility] ModulusCLEVELAND CLINIC HILLCREST HOSPITALComment on above:Postponed from 02/29/1988 (Patient Refused)Start: 75-86-2930Moyrjzjemkps 0-64 years Vaccine (2 - PCV)Pneumococcal 0-64 years Vaccine (2 - PCV)[facility] CENTERSmart Energy [facility] HOSPITALComment on above:Postponed from 05/10/2019 (Not Indicated)Start: 03-62-0206Zdwhlgadn for malignant neoplasm of lungLung Cancer Screening &/or CounselingBon [facility] [employer] [facility] HospitalStart: 01-19-2023 End: 83-36-4612Jgcpsnc encounter vnsyhyogf60/26/2023 Appointment Sleep Center [facility] Sleep CenterStart: 12-08-2022 End: 16-43-5944Wojmezioi to same day surgery [facility] ORComment on above: COLORECTAL CANCER SCREENING, NOT HIGH RISKStart: 12-08-2022 End: 69-73-2800Umlmw ca scrn not hi rsk indProMedica Flower Hospitaltart: 33-74-5981Udbbuebisu hospital visit by physicianELMHURST HOSPITAL CENTER ORStart: 11-23-2022 End: 06-51-7552Oyanwfz encounter tothgoeni58/28/2023 Appointment Sleep Center [facility] Sleep CenterStart: 67-54-6209Olhxcjergt measurementCreatinine monitoring [facility] CenterStart: 10-26-2274Pltgs panelOhiohealth Grant Medical CenterStart: 86-04-1739Hwsrhlcgk monitoringPotassium monitoringOhiohealth Grant Medical CenterStart: 19-26-7211Zqcyu screening for proteinDiabetic microalbuminuria testKettering Health Dayton HealthStart: 10-08-2022 End: 11-58-3260Xlyznew encounter gsyodqyzw41/13/2023 Appointment [facility]ERSusan EKG Start: 31-51-1335Usxhpvzuwa hospital visit by /06/2023 Hospital Encounter Stress Lab Canceled (Other)[facility] Stress LabComment on above:Canceled (Other)Start: 09-23-2022 End: 37-66-5775Hxzdjno encounter /29/2022 Office Visit Primary Care Vivian Lemos, BELT PICKER - 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 [address] [place], [place] [phone] (Work) [facility] Care Little RiverStart: 95-76-8506PRzQ/Tdap/Td vaccine (1 - Tdap)DTaP/Tdap/Td vaccine (1 - Tdap)[facility] HealthComment on above: Postponed from 02/29/1992 (Patient Refused)Start: 08-26-1489Xubjsqytj vaccinationFlu vaccine (#1)[facility] Medical CenterComment on above:Postponed from 05/27/2021 (Patient Refused)Start: 09-10-2022 End: 75-76-9973Lkaqumq encounter egzhlylln04/16/2022 Appointment LabTORRI Covid ScreeningStart: 08-06-2022 End: 59-91-9629Wlphpxu encounter ajnplsmmw04/11/2022 Appointment Physical Therapy Olivia Nam PTMTHZ Physical TherapyStart: 07-23-2022 End: 23-41-4827Kyzfyeh encounter sebjwrdsn69/28/2022 Appointment Physical Therapy Olivia Nam PTMTHZ Physical TherapyStart: 07-22-2022 End: 27-36-7285Alowcag encounter /27/2022 Appointment Physical Therapy Mulu Mccray PTAMTHZ Physical TherapyStart: 07-21-2022 End: 16-26-2750Elefhrj encounter wymgzwtzq17/26/2022 Appointment Physical Therapy Karrie Beltran PTAMTHZ Physical TherapyStart: 07-19-2022 End: 57-46-4218Wujwinn encounter procedureUniversity Hospitals Health Systemtart: 07-16-2022 End: 07-94-4433Rdgikuv encounter hobvvvkvd90/21/2022 Appointment Physical Therapy Olivia Nam PTMTHZ Physical TherapyStart: 07-14-2022 End: 92-12-8811Iftsrlb encounter /19/2022 Appointment Physical Therapy Karrie Beltran PTAMTHZ Physical TherapyStart: 07-13-2022 End: 96-30-2932Pmtptdc encounter ypjterdzd86/18/2022 Appointment Physical Therapy Mulu Mccray PTAMTHZ Physical TherapyStart: 41-07-1646Fyljdzbrtg hospital visit by uhreebvfx64/18/2022 Hospital Encounter Physical Therapy Mulu Mccray PTAMTHZ Physical TherapyStart: 07-12-2022 End: 58-87-4049Avfmhql encounter procedureMTLAURA Physical TherapyStart: 07-08-2022 End: 65-69-7837Gleouay encounter xvzdegjcq65/13/2022 Appointment Physical Therapy Olivia Nam PTMTHZ Physical TherapyStart: 07-07-2022 End: 52-54-2250Sszsyvo encounter tvktspinx97/12/2022 Appointment Physical Therapy Karrie Beltran PTAMTHZ Physical TherapyStart: 07-05-2022 End: 95-54-4554Sipidfu encounter ypyoaqzor34/10/2022 Appointment Physical Therapy Karrie Beltran PTAMTHZ Physical TherapyStart: 07-02-2022 End: 53-81-8166Myrwnju encounter hdjazrrvj00/07/2022 Appointment Physical Therapy Olivia Nam PTMTHZ Physical TherapyStart: 06-30-2022 End: 12-75-1446Atrxwyo encounter fjmvxuzra59/05/2022 Appointment Physical Therapy Karrie Beltran PTAMTHZ Physical TherapyStart: 06-28-2022 End: 82-00-0250Bafwfwt encounter ylgbvtqmt24/03/2022 Appointment Physical Therapy Karrie Beltran PTAMTHZ Physical TherapyStart: 06-24-2022 End: 50-75-8049Hgrybqh encounter rcinmajmv93/29/2022 Appointment Physical Therapy Olivia Nam PTMTHZ Physical TherapyStart: 06-21-2022 End: 31-14-8571Djdyfkk encounter dqnwbfisv18/26/2022 Appointment Physical Therapy Génesis Hickman PTAMTHZ Physical TherapyStart: 84-46-9640Vvozutacxi hospital visit by ypmukrabb82/26/2022 Hospital Encounter Physical Therapy Génesis Hickman PTAMTHZ Physical TherapyStart: 06-18-2022 End: 26-66-1578Ydgmxfe encounter plkbgqujv60/23/2022 Appointment Physical Therapy Karrie Beltran PTAMTHZ Physical TherapyStart: 06-16-2022 End: 00-27-2231Tmybzbr encounter ahrxjojlf43/21/2022 Appointment Physical Therapy Karrie Beltran PTAMTHZ Physical TherapyStart: 06-14-2022 End: 83-63-1285Lmktieo encounter watbyxfsb97/19/2022 Appointment Physical Therapy Karrie Beltran PTAMTHZ Physical TherapyStart: 06-11-2022 End: 91-30-5283Bdwzayc encounter uylelwbfp86/16/2022 Appointment Physical Therapy Olivia Nam PTMTHZ Physical TherapyStart: 06-09-2022 End: 53-02-9516Xnhhqgt encounter gloalxumj06/14/2022 Appointment Physical Therapy Karrie Beltran PTAMTHZ Physical TherapyStart: 06-07-2022 End: 38-19-6224Jsaqeon encounter yqovruudg54/12/2022 Appointment Physical Therapy Karrie Beltran PTAMTHZ Physical TherapyStart: 06-04-2022 End: 94-32-0393Chswuut encounter ualtedkaj55/09/2022 Appointment Physical Therapy Karrie Beltran PTAMTHZ Physical TherapyStart: 06-02-2022 End: 36-20-8476Jilyigp encounter ygpnhxpkt60/07/2022 Appointment Physical Therapy Karrie Beltran PTAMTHZ Physical TherapyStart: 24-29-4912Tjerhbkqqk hospital visit by cgdinsyjq91/07/2022 Hospital Encounter Physical Therapy Karrie Beltran PTAMTHZ Physical TherapyStart: 05-28-2022 End: 71-60-1906Jqmthog encounter /02/2022 Appointment Physical Therapy Olivia Nam PTMTHZ Physical TherapyStart: 05-27-2022 End: 42-16-2646Totuxvb encounter unbkwydwb66/01/2022 Appointment Physical Therapy Olivia Nam PTMTHZ Physical TherapyStart: 57-18-6479Xsqftvpqe vaccinationFlu vaccine (#1)[facility] SYSTEMStart: 05-27-2022 End: 29-18-5415Dyspstt evaluation of patient and smmyzd9505/27/2022 Nurse Only General Surgery Binta Pearl I, DO [address] [place] [phone] [facility] Part [facility] HospitalStart: 05-25-2022 End: 66-38-5627Vbqkfso encounter uwjfmdjau90/30/2022 Appointment Physical Therapy Nathan Garcia PTMTHZ Physical TherapyStart: 05-19-2022 End: 89-80-7981Crcdvrv encounter dmvkyfloq93/24/2022 Procedure visit General Surgery Binta Pearl I, DO [address] [place] [address] [facility] SURGERY Part [facility] HospitalStart: 05-12-2022 End: 84-48-1013Wbbyjvu encounter qsdrsfbso32/17/2022 Office Visit General Surgery Binta Pearl [place], DO [address] [place] [address] [facility] SURGERY Part [facility] HospitalStart: 60-42-6336Bngvcoru retinal examDiabetic retinal examMercy HealthComment on above:Postponed from 10/17/2020 (Not Indicated)Start: 69-33-9878Lfxzcmpl foot examinationDiabetic foot examMercy HealthStart: 08-26-1124Mnwycimas B vaccine (1 of 3 - Risk 3-dose series)Hepatitis B vaccine (1 of 3 - Risk 3-dose series)[facility] CenterComment on above:Postponed from 02/29/1992 (Not Indicated)Start: 03-18-2022 End: 68-56-7431Qgaprzv encounter /23/2022 Office Visit Primary Care Vivian Lemos, BELT PICKER - 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 [address] [place], [place] [phone] (Work) [facility] HospitalfinStart: 70-99-9454Hzlvtvawq for malignant neoplasm of cervixCervical cancer screenKettering Health [facility] Health Work Phone: comment on above:Postponed from 06/02/2020 (Not Indicated)Start: 41-25-8627Jczhlloavm measurementCreatinine monitoringKettering Health [facility] Babelverse Work Phone: start: 45-62-6407Wizxmimlp monitoringPotassium monitoringKettering Health [facility] Health Work Phone: start: 37-17-8115LDNDC-19 Vaccine (1)COVID-19 Vaccine (1)[facility] Medical CenterComment on above:Postponed from 1985 (Patient Refused) Postponed from 1978 (Patient Refused)Start: 83-02-2730Xvjfgtmzz C screeningHepatitis C screenKettering Health [facility] Babelverse Work Phone: comment on above:Postponed from 1973 (Patient Refused)Start: 02-04-2022 End: 52-40-3306Bcqvtgy encounter procedureCHILDR[facility] Part [facility] Hospitaltart: 62-68-7418Ynnflslday A1c hbguxwoemidV3B test (Diabetic or Prediabetic)[facility] CenterStart: 10-15-2021 End: 45-06-5251kzqwvehihf12/20/2022 Virtual Visit Gastroenterology Claudia Willett, BELT PICKER - 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 [address] [place] [address] [phone] [facility] GastroenterologyStart: 09-17-2021 End: 69-01-9083Gwggilm encounter zseewrwqv36/23/2021 Office Visit Primary Care Vivian Lemos, BELT PICKER - 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 [address] [place], [place] [phone] [facility] Care [facility] RiverStart: 18-68-3218KNoV/Tdap/Td vaccine (1 - Tdap)DTaP/Tdap/Td vaccine (1 - Tdap)[facility] HospitalTIENComyayo on above: Postponed from 02/29/1992 (Patient Refused)Start: 56-17-2763APB screeningHIV screenLima Memorial Hospital KYComment on above:Postponed from 02/29/1988 (Patient Refused)Start: 09-03-2021 End: 19-76-4584Srxpztp encounter ufgybqfpt58/09/2021 Office Visit Cardiology Nathan Ardon MD [address] [address] [facility] C[facility] Hospitaltart: 26-52-4325BoQ6j (Bld) [Mass fraction]A1C test (Diabetic or Prediabetic)[place], KYStart: 50-82-1660Cdpgbdjegh A1c wdykftzgpwmV7T test (Diabetic or Prediabetic)[facility] Phone: start: 89-55-8394Kirca panelLipid screenCharl[place], KYStart: 62-47-9593Zsycldgva vaccinationFlu vaccine (#1)[facility] [employer] Phone: start: 03-18-2021 End: 08-92-0765Xvtgfp VisitRegional Medical CenterfinStart: 93-88-3474Goyksamje B vaccine (1 of 3 - Risk 3-dose series)Hepatitis B vaccine (1 of 3 - Risk 3-dose series)[facility] TIENComment on above:Postponed from 02/29/1992 (Not Indicated)Start: 03-09-2021 End: 46-16-1939Tisfbzb encounter fjcuqficy84/14/2021 Office Visit Gastroenterology Leah Martins MD [address] [address] [place] [address] [facility] GastroenterologyStart: 03-04-2021 End: 87-26-4389Iqcdibk encounter /09/2021 Appointment Stress LabMTHZ Stress LabStart: 02-09-2021 End: 31-42-0674Grztonw encounter fhqdoxdxn95/17/2021 Office Visit Primary Care Vivian Lemos, BELT PICKER - 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 [address] [facility] [address] [facility], [place] [phone] [facility] TiffinStart: 01-28-2021 End: 13-56-4048Liwkek Visit01/28/2021 Office Visit Urology Florida Everett MD [address], [address] [place], [place] [phone] [facility] UR[facility] Part of [facility] Hospitaltart: 11-21-2020 Diabetic microalbuminuria testDiabetic microalbuminuria testMerHipvan Work Phone: comment on above:Postponed from 09/25/2019 (Not Indicated)Start: 43-35-3602Lpaccmqrse measurementCreatinine monitoringK[facility]tering Health [facility] Health- [place], [place]Start: 99-82-3129Ckfzhwncuv monitoringCreatinine monitoringMerHipvan Work Phone: start: 54-98-1318Solskdzuf monitoringPotassium monitoringKettering Health SpringfieldHipvan Work Phone: start: 33-99-8730Srzqydll retinal examDiabetic retinal examBON SECTHE BELLEVUE HOSPITALStart: 66-33-7661Uywihife screeningDiabetic retinal examBon [facility] HospitalStart: 09-11-2020 End: 28-55-1125Nctayr Visit09/11/2020 Office Visit Primary Care Might, Vivian Combs, BELT PICKER - 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 [address] [place], [place] [phone] [facility] Primary Care Little RiverStart: 09-79-3430SVeM/Tdap/Td vaccine (1 - Tdap) DTaP/Tdap/Td vaccine (1 - Tdap)[facility] Phone: comment on above:Postponed from 02/29/1992 (Patient Refused)Postponed from 02/29/1984 (Patient Refused)Start: 89-71-3522KGH screen HIV screenMerHipvan Work Phone: comment on above:Postponed from 02/29/1988 (Patient Refused)Start: 49-58-3228QDA screeningHIV screenKettering Health Springfieldcy HealthGOLDEN VALLEY [facility], MTComment on above:Postponed from 02/29/1988 (Patient Refused)Start: 32-45-5464Lhggsnownn monitoringCreatinine monitoringMercy Health- [place], [place]Start: 48-19-3703Aoewjulzm monitoringPotassium monitoringMer Health- [place], [place]Start: 06-11-2020[object Object]Diabetic foot examLima [facility] Hospital, KYStart: 91-48-8799Ebekoskf foot examinationDiabetic foot examLima [facility] Hospital, KYStart: 03-36-1005Poketswmco monitoringCreatinine [facility], KYStart: 15-29-7110Ybmpq panel Lipid screenLima [facility] Hospital, KYStart: 08-25-6963Wsqjx screenLipid screenLima [facility] Hospital, KYStart: 94-13-9117Bxqqvvrhu monitoringPotassium [facility], KYStart: 17-05-2374Ilfpinpg cancer screenCervical cancer screenLima [facility] Hospital, KYStart: 12-80-6744Qkdjrausf for malignant neoplasm of cervixBON SECOURS [facility] HOSPITALStart: 71-12-0390Dkzpvlgfs vaccinationFlu vaccine (#1)[facility], KYStart: 85-07-9409JjK0x (Bld) [Mass fraction]A1C test (Diabetic or Prediabetic)[facility], MTStart: 62-46-5322Nndealjqwf monitoringCreatinine monitoringLima [facility] Hospital, KYStart: 57-46-6722Pwcwykdsw monitoringPotassium [facility], KYStart: 03-12-2020 End: 48-57-8927Oimkmd VisitMer Primary Care TiffinStart: 32-06-9017Ljdnznzx retinal examDiabetic retinal examLima Memorial Hospital, KYComment on above:Postponed from 01/02/2019 (Patient Refused)Start: 31-53-1346Phfkaczjg B Vaccine (1 of 3 - Risk 3-dose series)Hepatitis B Vaccine (1 of 3 - Risk 3-dose series)[facility], MTComment on above:Postponed from 02/29/1992 (Patient Refused)Start: 01-28-2020 End: 84-63-7157Kzsjzx VisitTiffin UrologyStart: 35-00-6843W0M test (Diabetic or Prediabetic)A1C test (Diabetic or Prediabetic)[facility], KYStart: 10-15-2019 End: 75-28-8751Gtjlvl Visit10/15/2019 Office Visit Cardiology Nathan Ardon MD [address] [place] [address] [place] [address] [phone] [facility] CARDIOLOGYStart: 41-73-3731Uolkaeqp microalbuminuria testDiabetic microalbuminuria testCharl[place], KYStart: 09-10-2019 End: 29-80-7738Qogmge Visit09/10/2019 Office Visit Primary Care Vivian Lemos, BELT PICKER - 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 [address] [place] [address] [phone] [facility] HospitalfinStart: 09-04-2019 End: 35-28-9844Eihiew Visit09/04/2019 Office Visit Otolaryngology Hever Olivera PA [address] [place] [address] [facility] Ear, Nose & Throat SpecialistsStart: 04-60-3804G6P test (Diabetic or Prediabetic)A1C test (Diabetic or Prediabetic)[place], [place] Start: 38-80-6275CBkI/Tdap/Td vaccine (1 - Tdap)DTaP/Tdap/Td vaccine (1 - Tdap) [place], KYComment on above:Postponed from 02/29/1992 (Patient Refused) Postponed from 02/29/1984 (Patient Refused)Start: 99-31-3393HKT screenHIV screen [place], KYComment on above:Postponed from 02/29/1988 (Patient Refused) Start: 08-22-2019 End: 98-49-6903Xovmcgpngnw61/27/2019 [facility]ointment [facility] Nuclear MedicineStart: 89-37-2257Neyfi screenLipid screenCharl[place], [place] Start: 08-16-2019 End: 51-65-4259Kshwqxpftvf23/21/2019 Appointment [facility] Nuclear MedicineStart: 08-03-2019 End: 03-65-1992Fqkoxxgwbps60/08/2019 Appointment [facility] UltrasoundStart: 07-26-2019 End: 98-61-2465Nqtdlx Visit07/26/2019 Office Visit OtolaryngologHever Green PA [address] [address] [phone] [facility] Ear, Nose & Throat SpecialistsStart: 06-11-2019 End: 60-34-7824Mjiwmw Visit06/11/2019 Office Visit Primary Care Vivian Lemos, JOSSE - 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 [address] [place] [address] [phone] [facility] HospitalfinStart: 98-76-2892Q8F test (Diabetic or Prediabetic)A1C test (Diabetic or Prediabetic)[facility]: 30-65-7575Vjqdukndh vaccinationFlu vaccine (#1)[facility]: 05-10-2019[object Object] Diabetic foot examHocking Valley Community Hospital: 54-31-1878Gxfidnqctuum 0-64 years Vaccine (2 - PCV)Pneumococcal 0-64 years Vaccine (2 - PCV)[facility]: 71-54-9222Sedltrtwkrpa 0-64 years Vaccine (2 of 2 - PCV) Pneumococcal 0-64 years Vaccine (2 of 2 - PCV)[facility]: 53-39-6970Ofccnchqpadn 50+ years Vaccine (2 of 2 - PCV)Pneumococcal 50+ years Vaccine (2 of 2 - PCV)[facility]: 65-00-9669Isrlngaru for malignant neoplasm of colonCoshocton Regional Medical Centerart: 03-35-1170Vtzxydrpe for malignant neoplasm of cervixHPV (without or with Pap)[facility] Centerart: 19-97-5125HQlU/Tdap/Td vaccine (1 - Tdap)DTaP/Tdap/Td vaccine (1 - Tdap)[facility]: [phone] B vaccine (1 of 3 - 19+ 3-dose series)Hepatitis B vaccine (1 of 3 - 19+ 3-dose series)[facility] Start: [phone] screening for proteinDiabetic Alb to Cr ratio (uACR) test [facility]: [phone]-19 Vaccine (1)COVID-19 Vaccine (1)Yatra Phone: start: 64-94-4166YAO screeningHIV screenOhiohealth Grant Medical Center Start: 80-78-8277Czxzvwkjnu MonitoringDepression MonitoringOhiohealth Grant Medical CenterStart: 18-29-4389Ixfrldrmt C screeningHepatitis C screenLima [facility], [place] End: 95-61-8376EYING ACID, QUANTAMINO ACID, QUANT Lab Routine Once for 1 Occurrences starting 12/28/2019 until 12/28/2019[place], [place] on [place]:Once for 1 Occurrences starting 12/28/2019 until 12/28/2019AMINO ACID, QUANTAMINO ACID, QUANT Lab Routine 12/28/2019 2:54 PM [facility]Ohio[facility], [place] End: 41-80-5475Dryr-smooth muscle antibodyAnti-smooth muscle antibody Lab Routine Abnormal LFTs 1 Occurrences starting 03/11/2021 until 03/11/2021[facility] [employer] Phone: comment on above:1 Occurrences starting 03/11/2021 until 03/11/2021 End: 85-55-9273Vnarn Metabolic Panel w/ Reflex to MGBasic Metabolic Panel w/ Reflex to MG Lab Routine Daily for 5 Days starting 06/11/2023 until 06/15/2023, 4 completedDIGN[facility] Stypi [facility] HOSPITALNutmeg EducationUniversity Health Lakewood Medical Center on above:Daily for 5 Days starting 06/11/2023 until 06/15/2023, 4 completed End: 52-49-0141Ielnj Metabolic Panel w/ Reflex to MGBasic Metabolic Panel w/ Reflex to MG Lab Routine Daily for 5 Days starting 05/30/2025 until 06/03/2025, 2 completedBon Nix Hy[employer] [facility] HospitalRosetta GenomicsUniversity Health Lakewood Medical Center on above:Daily for 5 Days starting 05/30/2025 until 06/03/2025, 2 completedBlood Culture 1Blood Culture 1 Microbiology STAT 06/10/2023 11:30 PM [facility] [employer] End: 46-78-1995S-reactive proteinC-Reactive Protein Lab Routine Q48H for 3 Days starting 07/25/2024 until 07/27/2024, 1 completedA[facility] Nix [employer]dra [facility] HospitalRosetta GenomicsUniversity Health Lakewood Medical Center on above:Q48H for 3 Days starting 07/25/2024 until 07/27/2024, 1 completed End: 79-37-3001Mqcrthv stress test EKG study TypeEcho stress test Echocardiography Routine Essential hypertension Chest discomfort Hyperlipidemia, unspecified hyperlipidemia type Tobacco abuse 1 Occurrences starting 03/03/2021 until 03/03/2021[facility] Springfield[facility] Phone: comment on above:1 Occurrences starting 03/03/2021 until 03/03/2021 End: 22-36-9132KbmicbgztItiiziwys Lab Routine Once for 1 Occurrences starting 12/28/2019 until 12/28/2019[facility] [place]MI[place], [place]Comment on [place]:Once for 1 Occurrences starting 12/28/2019 until 12/28/2019CarnitineCarnitine Lab Routine 12/28/2019 2:54 PM [facility] [place] End: 19-43-7937ZVI W Auto Differential panel - BloodCBC auto differential Lab Routine Daily for 5 Days starting 06/11/2023 until 06/15/2023, 4 [facility] UniPayUniversity [facility] Center on above:Daily for 5 Days starting 06/11/2023 until 06/15/2023, 4 completed End: 26-24-4921QKI W Auto Differential panel - BloodCBC auto differential Lab Routine Daily for 5 Days starting 05/30/2025 until 06/03/2025, 2 [facility] Intersystems InternationalUniversity Health Lakewood Medical Center on above:Daily for 5 Days starting 05/30/2025 until 06/03/2025, 2 completed End: 83-33-5219Lqpfjjbjun cardiac monitoring, >2 up to 14 daysContinuous cardiac monitoring, >2 up to 14 days Cardiac Services Routine Syncope and collapse Preop cardiovascular exam Dizziness Primary hypertension Mixed hyperlipidemia Tobacco abuse counseling1 Occurrences starting 10/08/2022 until 10/08/2022ON [employer] Phone: comment on above:1 Occurrences starting 10/08/2022 until 10/08/2022ontinuous pulse oximetryPulse oximetry, continuous Respiratory Care Routine Every 4hr until discontinued starting 06/11/2023ON UniPayUniversity Health Lakewood Medical Center on above:Every 4hr until discontinued starting 06/11/2023 End: 25-25-7663AIAJU-19COVID-19 Lab Routine Preoperative testing 1 Occurrences starting 09/30/2020 until 09/30/2020[facility] [place], [place] on [place]:1 Occurrences starting 09/30/2020 until 6788ANBLQ-77NUHKR-47 Lab Routine Preoperative testing 09/30/2020 1:20 PM [facility] [place], [place] End: 85-53-8497TFEQO-19MerHipvan Work Phone: comaibx on above:Once for 1 Occurrences starting 11/26/2021 until 11/26/2021 End: 07-74-3788EVCXJ-19BON [employer] Work Phone: comrvht on above:Once for 1 Occurrences starting 04/09/2022 until 04/09/2022 End: 68-58-6432MUHGI-19BON [employer] Work Phone: comqxar on above:Once for 1 Occurrences starting 09/03/2022 until 09/03/2022 End: 29-19-9514SDCEF-19BON [employer] Work Phone: comment on above:Once for 1 Occurrences starting 09/10/2022 until 09/10/2022 End: 36-64-3753Wamdj-19 AmbulatoryCovid-19 Ambulatory Lab Routine Once for 1 Occurrences starting 07/08/2020 until 07/08/2020[facility], [place]Comment on above:Once for 1 Occurrences starting 07/08/2020 until 07/08/2020Covid-19 AmbulatoryCovid-19 Ambulatory Lab Routine 07/08/2020 1:06 PM [facility] [place] [employer], [place] End: 37-75-2325UX Ankle - left WO contrastBon Secours Mercy HealthComment on above:Once for 1 Occurrences starting 07/26/2024 until 07/26/2024 End: 15-33-3573PM Foot - left WO contrastBon Secours Mercy HealthComment on above:Once for 1 Occurrences starting 07/26/2024 until 07/26/2024 End: 43-83-0613IK Foot - left WO contrastBon Secours Mercy HealthComment on above:1 Occurrences starting 08/31/2024 until 08/31/2024 End: 60-03-6992SW Sinuses W contrast IVCT SINUS W CONTRAST Imaging Routine Recurrent pansinusitis 1 Occurrences starting 07/02/2024 until 07/02/2024on Intersystems InternationalComment on above:1 Occurrences starting 07/02/2024 until 07/02/2024 End: 71-58-3080IR Sinuses WO contrastBon Intersystems InternationalComment on above:1 Occurrences starting 07/17/2025 until 07/17/2025 End: 13-48-7120NTW Abdominal vessels WO and W contrast IVBon Intersystems InternationalComment on above:1 Occurrences starting 06/14/2025 until 06/14/2025 Culture, Blood 2Culture, Blood 2 Microbiology STAT 06/10/2023 11:40 PM EDTBON Uni[employer] End: 97-69-9613Uupsgkl, UrineCulture, Urine Microbiology Routine Renal stones Renal colic 1 Occurrences starting 01/28/2021 until 01/28/2021[facility] SpringfieldHip[facility] Work Phone: comment on above:1 Occurrences starting 01/28/2021 until 1Culture, UrineCulture, Urine Microbiology Routine Renal stones Renal colic 01/28/2021 11:00 AM EDHealthline Networks Work Phone: End: 53-72-8637JLP Skeletal system.axial Views for bone densityBon Intersystems InternationalComment on above:1 Occurrences starting 05/02/2025 until 05/02/2025EKG 12 LeadEKG 12 Lead ECG Routine 08/06/2022 2:34 PM ESTBON [employer] Work Phone: eKG 12 LeadEKG 12 Lead ECG STAT 08/06/2022 5:11 PM EST [facility] [employer] Phone: End: 74-27-7275Xaabzq 8 AssayFactor 8 Assay Lab Routine Once for 1 Occurrences starting 12/28/2019 until 12/28/2019[facility]Prov[facility]- [place], [place]Comment on above:Once for 1 Occurrences starting 12/28/2019 until 12/28/2019Factor 8 AssayFactor 8 Assay Lab Routine 12/28/2019 2:54 PM [facility], [place] End: 97-50-7351IbmakxovpeTjuxitknpp Lab Routine Once for 1 Occurrences starting 12/28/2019 until 12/28/2019[facility] TIENComment on above:Once for 1 Occurrences starting 12/28/2019 until 12/28/2019FibrinogenFibrinogen Lab Routine 12/28/2019 2:54 PM [facility], [place] End: 21-96-7109Akzvpjy [Mass/volume] in Serum or PlasmaPOCT Glucose Point of Care Testing STAT One Time for 1 Occurrences starting 12/08/2022 until 023[facility] [employer] [facility] CITY HOSPITALComment on above:One Time for 1 Occurrences starting 12/08/2022 until 3Glucose [Mass/volume] in Serum or PlasmaPOCT Glucose Point of Care Testing STAT As Needed until discontinued starting 06/11/2023ON [facility] MEDICAL CENTERSprinklrComment on above:As Needed until discontinued starting 3Glucose [Mass/volume] in Serum or PlasmaBON [facility] Integrated Corporate Health Comment on above:As Needed until discontinued starting 34X Daily (AC & HS) until discontinued starting 06/11/2023 End: 54-91-2450Gnzlmss [Mass/volume] in Serum or PlasmaBon [facility] [employer] Work Phone: Comment on above:One Time for 1 Occurrences starting 07/23/2024 until 44X Daily (AC & HS) until discontinued starting 07/24/2024s Needed until discontinued starting 07/23/2024Glucose [Mass/volume] in Serum or PlasmaPOCT Glucose Point of Care Testing STAT As Needed until discontinued starting 09/14/2024on [facility] [employer] Work Phone: Comment on above:As Needed until discontinued starting 09/14/2024Glucose [Mass/volume] in Serum or PlasmaPOCT Glucose Point of Care Testing Routine 4X Daily (AC & HS) until discontinued starting 05/30/2025on Intersystems InternationalComment on above:4X Daily (AC & HS) until discontinued starting 05/30/2025 End: 20-20-4198Rpnrbde [Mass/volume] in Serum or PlasmaPOCT Glucose Point of Care Testing STAT One Time for 1 Occurrences starting 07/23/2025 until [facility] [employer] Work Phone: Comment on above:One Time for 1 Occurrences starting 07/23/2025 until 07/23/2025 End: 37-95-3854GkJ4s (Bld) [Mass fraction]Hemoglobin A1C Lab Routine Once for 1 Occurrences starting 08/13/2020 until 08/13/2020[facility] SpringfieldCoinify, [place]Comment on above:Once for 1 Occurrences starting 08/13/2020 until 08/13/2020HbA1c (Bld) [Mass fraction]Hemoglobin A1C Lab Routine 08/13/2020 11:47 AM [facility] HospitalThe[facility] [place], [place] End: 46-81-6120Hxxupbtnoz A1c/Hemoglobin.total in [employer] Work Phone: comment on above:1 Occurrences starting 09/21/2022 until 09/21/2022 End: 13-51-8289Odyrrhzulq A1c/Hemoglobin.total in [employer] Comment on above:Once for 1 Occurrences starting 06/08/2024 until 06/08/2024 End: 53-13-2588Iwhrhrgbgd A1c/Hemoglobin.total in BloodHemoglobin A1C Lab Routine One Time for 1 Occurrences starting 07/14/2024 until 07/14/2024on [employer] Work Phone: comment on above:One Time for 1 Occurrences starting 07/14/2024 until 07/14/2024 End: 84-02-3223Puziyrewmw A1c/Hemoglobin.total in [employer] Comment on above:Once for 1 Occurrences starting 10/11/2024 until 10/11/2024 End: 55-57-6719Hmdvtaclj A Antibody, TotalHepatitis A Antibody, Total Lab Routine Abnormal LFTs 1 Occurrences starting 03/11/2021 until 03/11/2021Yatra Phone: comment on above:1 Occurrences starting 03/11/2021 until 03/11/2021Hepatitis A Antibody, TotalHepatitis A Antibody, Total Lab Routine Abnormal LFTs 03/11/2021 12:57 PM [employer] Phone: End: 40-33-4013Ladomnpkl B surface antibodyHepatitis B surface antibody Lab Routine Abnormal LFTs 1 Occurrences starting 03/11/2021 until 03/11/2021[facility] Phone: comment on above:1 Occurrences starting 03/11/2021 until 03/11/2021Home BIPAP or CPAPHome BIPAP or CPAP Respiratory Care Routine QHS until discontinued starting 06/11/2023ON UniPayComment on above:QHS until discontinued starting 06/11/2023 End: 02-02-2883Tpiz sleep studyMiami sleep study [facility] Routine Tired Fatigue, unspecified type LAYNE (obstructive sleep apnea)1 Occurrences starting 11/23/2022 until 11/23/2022ON [employer] Phone: comment on above:1 Occurrences starting 11/23/2022 until 11/23/2022 End: 81-34-7880Pspcyisctjxzxyn, QuantitativeImmunoglobulins, Quantitative Lab Routine Abnormal LFTs 1 Occurrences starting 03/11/2021 until 03/11/2021[facility] Phone: comment on above:1 Occurrences starting 03/11/2021 until 03/11/2021Immunoglobulins, QuantitativeImmunoglobulins, Quantitative Lab Routine Abnormal LFTs 03/11/2021 12:57 PM [employer] Phone: End: 46-91-2806SNSWKSKQ PACU OXYGEN THERAPY PROTOCOLInitiate PACU Oxygen Therapy Protocol Respiratory Care Routine Continuous until discontinued starting 5Bon [employer] Phone: comment on above:Continuous until discontinued starting 07/23/2025 End: 01-47-6696BCHHCMFTXGQFO TESTINGMISCELLANEOUS TESTING Lab Routine Once for 1 Occurrences starting 12/28/2019 until 12/28/2019[facility], [place]Comment on above:Once for 1 Occurrences starting 12/28/2019 until 12/28/2019MISCELLANEOUS TESTINGMISCELLANEOUS TESTING Lab Routine 12/28/2019 4:12 PM [employer], [place] End: 17-73-9648YYBBKDZEADIXD ANTIBODIES, M2, IGGMITOCHONDRIAL ANTIBODIES, M2, IGG Lab Routine Once for 1 Occurrences starting 03/11/2021 until 03/11/2021[facility] Phone: comment on above:Once for 1 Occurrences starting 03/11/2021 until 03/11/2021MITOCHONDRIAL ANTIBODIES, M2, IGGMITOCHONDRIAL ANTIBODIES, M2, IGG Lab Routine 03/11/2021 12:57 PM [employer] Phone: End: 56-33-1944PCNHGGKCAOFWQ ANTIBODY W/REFLEX TITERMITOCHONDRIAL ANTIBODY W/REFLEX TITER Lab Routine Abnormal LFTs 1 Occurrences starting 03/11/2021 until 03/11/2021[facility] Phone: comment on above:1 Occurrences starting 03/11/2021 until 03/11/2021 End: 58-19-4573FF Lumbar spine WO contrastBon Secours WannadoComment on above:1 Occurrences starting 04/12/2025 until 04/12/2025 End: 28-04-9311YS Shoulder - left WO contrastBon Secours AVEO Pharmaceuticals HealthComment on above:1 Occurrences starting 07/29/2025 until 07/29/2025 End: 50-70-1588RB Shoulder - right WO contrastBon Secours WannadoComment on above:1 Occurrences starting 07/29/2025 until 07/29/2025Nasal Cannula Oxygen Nasal Cannula Oxygen Respiratory Care Routine Daily until discontinued starting 06/11/2023ON SECSprinklrComment on above:Daily until discontinued starting 06/11/2023 End: 85-91-7411HF GASTRIC EMPTYINGNM GASTRIC EMPTYING Imaging Routine Generalized abdominal pain 1 Occurrences starting 08/16/2019 until 08/16/2019 [place], [place]:1 Occurrences starting 08/16/2019 until 08/16/2019 End: 55-88-8098Jpgnqpq Ab [Titer] in Serum by ImmunofluorescenceANA Lab Routine Abnormal LFTs 1 Occurrences starting 03/11/2021 until 03/11/2021[facility] Phone: comment on above:1 Occurrences starting 03/11/2021 until 03/11/2021Nuclear Ab [Titer] in Serum by ImmunofluorescenceANA Lab Routine Abnormal LFTs 03/11/2021 12:57 PM [employer] Phone: Oxygen therapy [Minimum Data Set]Initiate Oxygen Therapy Protocol Respiratory Care Routine As Needed until discontinued starting 06/11/2023 UniPayUniversity [facility] Center on above:As Needed until discontinued starting 06/11/2023Oxygen therapy [Minimum Data Set]Initiate Oxygen Therapy Protocol Respiratory Care Routine As Needed until discontinued starting 06/27 Intersystems InternationalUniversity Health Lakewood Medical Center on above:As Needed until discontinued starting 07/23/2024Oxygen therapy [Minimum Data Set]Initiate Oxygen Therapy Protocol Respiratory Care Routine As Needed until discontinued starting 08/27 [facility]tersystems InternationalUniversity Health [facility] Center on above:As Needed until discontinued starting 09/14/2024Oxygen therapy [Minimum Data Set]Initiate Oxygen Therapy Protocol Respiratory Care Routine As Needed until discontinued starting 08/27 Inters[facility] InternationalUniversity Health [facility] Center on above:As Needed until discontinued starting 09/14/2024Oxygen therapy [Minimum Data Set]Initiate Oxygen Therapy Protocol Respiratory Care Routine Daily until discontinued starting 05/30/2025 [facility] Intersystems InternationalUniversity Health Lake[facility] Medical Center on above:Daily until discontinued starting 05/30/2025Oxygen therapy [Minimum Data Set]Initiate Oxygen Therapy Protocol Respiratory Care Routine As Needed until discontinued starting 07/23/2025 [facility]ters[facility] InternationalUniversity Health Lakewood Medical Center on above:As Needed until discontinued starting 07/23/2025Pathology studySurgical Pathology Lab Routine Charcot ankle, left Diabetes (HCC) Release Upon Ordering for 1 Occurrences starting 09/14/2024on Intersystems InternationalUniversity Health Lake[facility] on above:Release Upon Ordering for 1 Occurrences starting 09/14/2024ositive Expiratory Pressure TherapyBON Uni[employer] [facility] on above:4X Daily until discontinued starting 06/11/2023s Needed until discontinued starting 06/11/2023 End: 42-10-4903Ktiuk study with PAP titrationSleep study with PAP titration Sleep Center Routine LAYNE (obstructive sleep apnea) 1 Occurrences starting 01/19/2023 until 01/19/2023ON [employer] Phone: comment on above:1 Occurrences starting 01/19/2023 until 01/19/2023 End: 31-12-7934Kixtup Muscle Antibody QuantSmooth Muscle Antibody Quant Lab Routine Once for 1 Occurrences starting 03/11/2021 until 03/11/2021[facility] Phone: comment on above:Once for 1 Occurrences starting 03/11/2021 until 03/11/2021mooth Muscle Antibody QuantSmooth Muscle Antibody Quant Lab Routine 03/11/2021 12:57 PM [facility] [employer] Phone: End: 70-01-6601Zkcdmf Muscle Antibody QuantBON [employer] Phone: Comment on above:1 Occurrences starting 07/19/2022 until 07/19/2022 End: 45-16-3125QPMYRFNW REJECTIONAbrazo Scottsdale Campus Intersystems InternationalComment on above:Once for 1 Occurrences starting 05/29/2025 until 05/29/2025Surgical PathologySurgical Pathology Lab Routine Screening for colon cancer Release Upon Ordering for 1 Occurrences starting 12/08/2022 [employer] Phone: Comment on above:Release Upon Ordering for 1 Occurrences starting 12/08/2022Vibratory Airway ClearanceDIGNITY [facility] UniPayComment on above:As Needed until discontinued starting 06/11/2023TID until discontinued starting 06/11/2023 Immunizations Immunization DateImmunizationNotesCare BkasbipwPzypgipk35-40-5270vwyyly vaccine recombinantSjoaquin Segundo MDDICKENSON COMM[facility] H[facility] Integrated Corporate HealthHOAGIG82-07-0069vxqrkq recombinant adjuvanted vaccine (SHINGRIX) 50 MCG/0.5ML SUSR Laura Segundo MDCENTRA VIRGINIA BAPTIST HOSPITALNutmeg EducationHZNKGD44-37-0114nxiaweumf, injectable, quadrivalent, contains preservative Mth Doctors HospitalIrnqhc83-81-8380rucizmuuc, injectable, quadrivalent, preservative freeBrett Magruder Memorial HospitalLjxnhv90-07-9722sjhbhjpgz, injectable, quadrivalent, preservative freeMercy Health Fairfield Hospital, MZ60-80-1030knrdeiarktjs polysaccharide vaccine, 23 valentBreSelect Medical Specialty Hospital - Boardman, IncPtecmd37-74-4683gqcfdnanq virus vaccine, unspecified formulationPremier Health Atrium Medical CenterKabhoa72-05-2960udykihlap virus vaccine, unspecified formulationPremier Health Atrium Medical Center12-04-2009novel xepygmoqd-Q1B5-00, preservative-free, injectableMercy Health Fairfield Hospital, [place] Payers DatePayer CategoryPayerPolicy [id number] [id number]-tzd [id number] [facility] PPO [id number] 09/26/2021-Present [phone] [address] [place], [place] [id number] 1.2.840.574831.1.13.239.2.7.3.004523.87880-76-4028Vxhybkz Health [id number] 1.2.840.043476.1.13.239.2.7.3.949477. UnknownMEDICAL MUTUAL MEDICAL MUTUAL [address] xxxxxxxxxxxx 2017-Present [phone] [address] [place] [phone] 1.2.840.162507.1.13.239.2.7.3.131[id number] 2.16.840.1.716074.3.579.2.33249-57-7448Akwheyf9014337 2.16.840.1.863803.3.579.2.48169-89-7546Nuissvk4463574 2.16.840.1.043007.3.579.2.12409-19-2894Sbgcdne7711745 2.16.840.1.297017.3.579.2.22150-45-0823Ocbmjoa9661418 2.16.840.1.695423.3.579.2.14678-56-0484Adtovxs1022191 2.16.840.1.685122.3.579.2.81424-40-7589Lbdvupp8356746 2.16.840.1.419389.3.579.2.78318-08-1019Fqdopdz5503731 2.840.1.290127.3.579.2.82843-17-3543Renmzcb9031060 2.840.1.815542.3.579.2.26377-71-9501Ihhdhzw4431579 2.0.1.332913.3.579.2.70434-35-4012Hbtlrkq0394712 2.840.1.585987.3.579.2.63124-79-3665Uehyxkn3865071 2.0.1.434207.3.579.2.75904-32-9644Afpmxdy6396771 2.840.1.462156.3.579.2.14710-31-4771Xfjhtje6283699 2.840.1.864880.3.579.2.06246-83-8960Irahgns4571870 2.840.1.636234.3.579.2.45735-19-3526Rjjiqvp9411164 2.840.1.914484.3.579.2.96614-50-8149Rugvzup4461787 2.16840.1.907001.3.579.2.26691-45-4111Pbsgyld29834724 2.16840.1.993723.3.579.2.81108-85-3520Qbndhak73106595 2.16.840.1.719074.3.579.2.49387-60-0209Rrkwkwo00307543 2..840.1.824843.3.579.2.71432-25-2757Mlhdvgo75890340 2.840.1.049619.3.579.2.87124-47-7920Wwraoth627189880 2.840.1.038538.3.579.2.45356-62-4653Kremcdz593162351 2.0.1.201357.3.579.2.83631-29-2177Tqmeann848992323 2.0.1.441646.3.579.2.84735-42-8401Cdverku097554063 2.0.1.593559.3.579.2.60400-88-0732Dynbcnj992298794 2.0.1.092521.3.579.2.65250-65-2469Lasepsn001495712 2..1.027212.3.579.2.18803-74-9617Slwogsl22022574 2.840.1.278967.3.579.2.17231-36-5378Comigrp89044158 2.0.1.651387.3.579.2.19471-91-8307Kyvwsyh48436712 2.840.1.713712.3.579.2.74351-70-7417Jatlotg98670177 2.840.1.895958.3.579.2.44480-42-8720Gwxxhbl48700688 2.840.1.226844.3.579.2.40157-94-2432Ahhejqf55664087 2.16.840.1.062627.3.579.2.36215-60-8707Bkxaqez61203087 2.840.1.631934.3.579.2.79231-91-6258Wvdrysx17750053 2.840.1.841145.3.579.2.39400-80-1352Rdhrqsk00681902 2.840.1.522478.3.579.2.32843-07-3377Emtlbcd49360974 2.840.1.095611.3.579.2.86750-71-2510Dxbnefc29928034 2.0.1.756347.3.579.2.80988-62-0163Quliiys56090556 2.0.1.712370.3.579.2.98400-54-0000Ljxbozm74252882 2..1.948831.3.579.2.74949-33-7061Smgfnnj65292330 2.0.1.049345.3.579.2.61244-93-0077Mjjcbpz00319648 2.0.1.376490.3.579.2.47738-41-6397Mfeurwh45550649 2.0.1.889856.3.579.2.84552-61-1158Cxifioc48482776 2.0.1.413796.3.579.2.98902-18-3695Idowhuj49764650 2.0.1.656478.3.579.2.45679-87-1357Xmqeqnq56389368 2.840.1.744675.3.579.2.09427-59-2943Ekkvkko08000789 2.840.1.110640.3.579.2.18522-99-8042Wvxtnox78521492 2.16.840.1.994682.3.579.2.43053-84-2684Pemcvoq33798704 2..840.1.187866.3.579.2.12712-06-9348Jkuaifj35886520 2..840.1.393083.3.579.2.68075-52-8899Ilxnjfa18291306 2.840.1.786542.3.579.2.24355-95-9060Lsmandv64454233 2.840.1.975261.3.579.2.03906-39-1584Updulgm75820438 2.0.1.296485.3.579.2.85602-15-2143Gtifvbc63402952 2..1.419297.3.579.2.71122-13-6569Aonxswa78058697 2.0.1.160849.3.579.2.81826-06-4206Bzzoytg72739551 2.0.1.494484.3.579.2.63630-59-9967Eyogaym55078075 2.840.1.375604.3.579.2.94604-05-6832Gqldcyp81926246 2.0.1.972561.3.579.2.08144-39-0508Uwmjjuy66585317 2.840.1.205175.3.579.2.10132-32-6604Anjpkqt36369319 2.840.1.648222.3.579.2.62421-30-2981Pwleyig68522072 2.840.1.877036.3.579.2.46623-34-7089Jpksccb52986014 2.840.1.227119.3.579.2.21390-87-4076Xfmwjit61760848 2.840.1.453436.3.579.2.09991-70-1540Bubcygc86838050 2.0.1.529829.3.579.2.04693-10-3142Abpmfnm48813590 2.0.1.629422.3.579.2.28039-79-3281Rjczftu89709830 2.0.1.752677.3.579.2.28501-18-1956Lwhamni39599714 2.0.1.200182.3.579.2.19944-38-1957Ebydqsx30721937 2..1.822794.3.579.2.52572-45-9445Xueewhr00657472 2..1.667411.3.579.2.90339-51-9524Btgyyqz94206528 2..1.053276.3.579.2.09507-57-1287Qtnrwff12375511 2.0.1.274732.3.579.2.79219-02-7925Sxgwqzd37545861 2..1.181617.3.579.2.38271-76-2465Qtkvwim92856474 2..1.145709.3.579.2.05608-30-9211Eskjfau99112542 2.0.1.534228.3.579.2.19842-12-8425Cjbrjhd86805249 2..1.749114.3.579.2.60209-76-1514Oulcyer52421284 2.0.1.059454.3.579.2.66872-32-0071Anrouhe91904894 2.0.1.048627.3.579.2.30491-83-6882Lkpcqsb20793080 2.840.1.610157.3.579.2.80768-80-5231Mqaeljo80656447 2.840.1.784743.3.579.2.74682-97-1491Gprsugu75517344 2.840.1.464380.3.579.2.13960-45-2221Gybvsoy31692029 2.840.1.728276.3.579.2.78442-13-9511Llsphux66370775 2.840.1.728813.3.579.2.09289-98-0402Oeeyebg40831154 2.0.1.652960.3.579.2.91551-24-6591Glezhnu14800225 2..1.197461.3.579.2.34944-68-5393Lhdenzp17493284 2.0.1.638481.3.579.2.66902-09-8190Hjsczwb68092351 2.0.1.109498.3.579.2.58216-94-3275Nxjrynv13707520 2.0.1.689082.3.579.2.02366-39-3724Urczfed85363523 2.0.1.433102.3.57[id number] 2.0.1.122220.3.57[id number] 2.0.1.869873.3.57[id number] 2.840.1.219128.3.57[id number] 2.840.1.362538.3.579.[id number] 2.16.840.1.428520.3.579.[id number] 2.16.840.1.448389.3.57[id number] 2.16.840.1.480683.3.579.[id number] 2.840.1.879391.3.57[id number] 2.840.1.301728.3.579.2.[id number] 2.840.1.980911.3.57[id number] 2.840.1.700744.3.579.2.[id number] 2.840.1.819433.3.579.[id number] 2.840.1.264174.3.579.2.[id number] 2.840.1.075106.3.57[id number] 2.840.1.607316.3.579.2.630[id number] 1..840.998753.1.13.239.[id number] 2.16840.1.98693[id number] 2.16840.1.611513.3.579.2.531 [id number] 2.16840.1.1042[id number] 2.840.1.612893.3.579.2.531UnknownRegular [id number] g9325r7t-jrk1-1540-u293-7826180043xt Social History DateTypeDetailFacilityStart: 07-13-2019 End: 06-28-9337Pdydqnt smoking status NHISCurrent every day smokerOhio[facility] History of tobacco useCigarette SmokerHocking Valley [facility] Hospital: 07-13-2019 End: 73-70-0557Mcordpjkkr smoked current (pack per day) - ReportedBON Stypi [facility] HOSPITALMobOz Technology srl [facility] Hospitalart: 07-13-2019 End: 85-92-9253Mmywpjw intakeNoMILFORD REGIONAL MEDICAL CENTERAF83 [facility]OSPITALMobOz Technology srl [facility] Hospitalart: 60-72-1086Ajl Assigned At BirthNot on fileHocking Valley Community Hospital: 07-26-2019 End: 16-93-3816Ydxnebb intakeCurrent non-drinker of alcohol (finding)[facility]: 06-24-2020 End: 09-40-0971Juqnebp use and exposureNever usedHocking Valley Community Hospital: 07-27-2022 End: 82-64-4310Fprxyvex to SARS-CoV-2 (event)Not [facility]: 75-22-6713Qlwrukx SDOH Xetagwskh5Sktes Health Work Phone: start: 55-98-3273Mdytybu SDOH Food Klntv9Gnges Health Work Phone: start: 26-10-5473Udqlsuw smoking status NHISSmoker (finding)[facility]sontart: 30-93-6987Blm Assigned At [facility] HospitalHow often to you have a drink containing alcohol?NeverBON UniPayHow many standard drinks containing alcohol do you have on a typical day?Patient does not drinkBON UniPay (I/We) worried whether (my/our) food would run out before (I/we) got money to buy more.DK or RefusedBON UniPayHas the [employer] gas, oil, or water [employer] threatened to shut off services in your home in past 12MoNoBon [employer](I/We) worried whether (my/our) food would run out before (I/we) got money to buy more.Never trueBon [facility] Healthcare Regional Medical CenterBaolab Microsystems [facility] HospitalStart: 11-05-2012 SexFemale (finding)Keagan [employer] [facility] HospitalStart: 91-31-8674Xnudxr identity Identifies as female gender (finding)[facility] [employer] [facility] HospitalStart: 05-29-2025 End: 43-65-2416Ccdjujyqm beverage intakeLifetime non-drinker (finding)[facility] [employer] Medical Equipment Procedure CodeEquipment CodeEquipment Original TextEquipment IdentifierDates1 each by Does not apply route 5 times [id number]: 72-21-2585Ixr Fix Fidelia Pt 2 End x9 In Smooth Ss Strl Monica - [id number] Start: 07-23-2024K Wire Fix L6in Dia1.6mm St S Stl 3 Side Dbl Trcr Both End - [id number])[id number], [id number]_imp FDAStart: 07-23-2024K Wire Fix L6in Dia1.6mm St S Stl 3 Side Dbl Trcr Both End - [id number](10)NZ5H4, [id number]_imp FDAStart: 36-12-4037Qlo Fix Fidelia Pt 1 End 32x9 In Thrd Ss Ns Monica - [id number]_impStart: 82-76-7560Afuue Bone Sub 5cc Pure Allosync - [id number]: 96-41-2835Mtcjcgf on above:Description: [id number] Bone Sub 2.5cc Allosync Pure - [id number]: 80-28-8690Zcuvewz on above: Description: [id number] Orth S Stl Hi Compr G-Beam Fus Beaming Sys - [id number]: 02-45-9624Fmskc Bne Fusion Lg 7.4x70 Mm Ss Strl G- Beam - [id number]: 27-05-0762Lcnbq Bne Fusion Sm 5.4x80 Mm Ss Strl G-Beam - [id number]: 94-46-9722Evxhf Bne Fusion Sm 5.4x120 Mm Ss Strl G-Beam - [id number]: 16-85-6032Wquic Bne Fusion Sm 5.4x120 Mm Ss Strl G-Beam - [id number]: 09-14-2024 Functional Status DateAssessmentResultFacilityCar[facility] St[facility] 12-04-2020 to 08-02-2025 Note Date & MaiqQhpkQrmldbdp23-02-9683 Hospital Discharge instructions* Discharge Instructions* Vanna Laws RN - 08/02/2025 3:04 PM EST Verbally reviewed discharge instructions for care and follow up. Previous print out of these instructions were given with prior treatment.Patient verbalized understanding of these instructions. Today's copy offered and declined. documented in this encounterCar[facility] St[facility]11-07-2025 History of Present illness Narrative* Vanna Laws RN - 08/02/2025 2:30 PM EST Allergy injection flow sheet Identification of own vial of serum Delayed reaction URI with or without wheezing Time of injection Discharge time Yes No No 4205 4946 Injection Schedule Concentration Dose Location Vial Expiration Date Reviewed Red A 1.0ml Left arm Yes Red B 1.0ml Right arm Yes Injection given by: GABRIEL CARLOS Injection site checked upon discharge by: GABRIEL CARLOS Comments: no local Reminder: document all injections in the allergy binder. documented in this encounterCarilion Clinic [facility]10-30-2025 Hospital Discharge instructions* Discharge Instructions* Shelley Sunshine RN - 07/25/2025 2:25 PM EDT Verbally reviewed discharge instructions for care and follow up. Previous print out of these instructions were given with prior treatment.Patient verbalized understanding of these instructions. Today's copy offered and declined. documented in this encounterCar[facility] Clinic St. [facility]10-30-2025 History of Present illness Narrative* Shelley Sunshine RN - 07/25/2025 2:00 PM EDT Allergy injection flow sheet Identification of own vial of serum Delayed reaction URI with or without wheezing Time of injection Discharge time Yes No No 1405 1429 Injection Schedule Concentration Dose Location Vial Expiration Date Reviewed Red#A 1.0ml left yes Red#B 1.0ml right Injection given by: Radha CARLOS Injection site checked upon discharge by: Radha CARLOS Comments: no local Reminder: document all injections in the allergy binder. documented in this encounterCarilion Clinic St. [facility]10-28-2025 History of Present illness Narrative* Sarah Espino RN - 07/23/2025 9:35 AM EDT Patient verbalizes readiness for discharge. Discharge instructions given to patient and responsibleadult, answered all questions, and verbalized understanding of discharge instructions. Discharge Criteria Inpatients must meet Criteria 1 through 7. All other patients are either YES or N/A. If a NO is chosen then Anesthesia or Surgeon must be notified. 1. Minimum 30 minutes after last dose of sedative medication. Yes 2. Systolic BP between 90 - 160. Diastolic BP between 60 - 90. Yes 3. Pulse between 60 - 120 Yes 4. Respirations between 8 - 25. Yes 5. SpO2 92% - 100%. Yes 6. Able to cough and swallow [...] or no abdominal distention or passing flatus. No 13. Written discharge instructions and emergency telephone number provided. Yes 14. Accompanied by a responsible adult. Yes * Ruby Carranza RN - 07/15/2025 2:05 PM EDT Patient instructed on the pre-operative, intra-operative, and post-operative process. Patient instructed on NPO status. Medication instructions and pre operative instruction sheet reviewed with the patient. Patient will hold aspirin and diclofenac for 5 days prior to procedure per providers instructions. Patient will hold jardiance for 3 days prior to procedure. Patient will hold insulin, and pioglitazone the morning of procedure. Patient will use inhalers and nasal sprays prn prior to arrival to the hospital the morning of procedure. Patient will take fexofenadine, pregablin, methocarbomal, metoprolol, montelukast, and tramadol with a small sip of water the morning of procedure prior to arrival to the hospital. documented in this encounterBon [facility] Discharge instructions* Discharge Instructions* Sarah Espino RN - 07/23/2025 9:19 AM EDT SAME DAY SURGERY DISCHARGE INSTRUCTIONS 1. [...] until your surgeon gives you permission. 7. Patient should not be left alone for 12-24 hours following surgical procedure. 8. Wash hands before and after incision care. It is important to practice good personal hygiene during the post op period. 9. Call your surgeon for any questions regarding your surgery. CYSTOSCOPY DISCHARGE INSTRUCTIONS Possible burning during urination and/or blood tinged urine. Drink 6-8 glasses of water for the next day or so. (This helps to flush the urinary tract.) Call Dr. Everett ([phone]) if you develop: Fever over 100 degrees Prolonged soreness/pain Unusual bleeding/bruising Unable to urinate or if urine is bloody You cannot pass urine 8 hours after the test. You have pain in your belly or your back just below your rib cage. (This is called flank pain.) You have frequent urge to urinate but can pass only small amounts of urine. Call Dr. Everett office for follow-up appointment in 3 months. You will need an abdominal x-ray afew days before. ([phone]). documented in this encounterCar[facility]10-22-2025 Hospital Discharge instructions* Discharge Instructions* Shelley Sunshine RN - 07/17/2025 1:43 PM EDT Verbally reviewed discharge instructions for care and follow up. Previous print out of these instructions were given with prior treatment.Patient verbalized understanding of these instructions. Today's copy offered and declined. documented in this encounterCar[facility]10-22-2025 History of Present illness Narrative* Shelley Sunshine RN - 07/17/2025 1:15 PM EDT Allergy injection flow sheet Identification of own vial of serum Delayed reaction URI with or without wheezing Time of injection Discharge time Yes No No 4653 9784 Injection Schedule Concentration Dose Location Vial Expiration Date Reviewed Red#A 1.0ml Left yes Red#B 1.0ml right Injection given by: Radha CARLOS Injection site checked upon discharge by: Radha CARLOS Comments: no local Reminder: document all injections in the allergy binder. documented in this encounterCar[facility]10-16-2025 History of Present illness Narrative* Vanna Laws RN - 07/11/2025 2:05 PM EDT Allergy injection flow sheet Identification of own vial of serum Delayed reaction URI with or without wheezing Time of injection Discharge time Yes No No 2333 5014 Injection Schedule Concentration Dose Location Vial Expiration Date Reviewed Red A 1.0ml Left arm yes Red B 1.0ml Right arm yes Injection given by: GABRIEL CARLOS Injection site checked upon discharge by: GABRIEL CARLOS Comments: no local Reminder: document all injections in the allergy binder. documented in this encounterCar[facility]09-24-2025 Hospital Discharge instructions* Discharge Instructions* Kelly Boston RN - 06/19/2025 2:01 PM EDT Verbally reviewed discharge instructions for care and follow up. Previous print out of these instructions were given with prior treatment.Patient verbalized understanding of these instructions. Today's copy offered and declined. documented in this encounterCar[facility]. [facility]09-24-2025 History of Present illness Narrative* Kelly Boston RN - 06/19/2025 1:30 PM EDT Allergy injection flow sheet Identification of own vial of serum Delayed reaction URI with or without wheezing Time of injection Discharge time Yes No No 0259 3010 Injection Schedule Concentration Dose Location Vial Expiration Date Reviewed Gold Vial A 0.5 ml Left arm yes Gold Vial B 0.5 ml Right arm yes Injection given by: Mark Boston RN Injection site checked upon discharge by: Mark Boston RN Comments: no local Reminder: document all injections in the allergy binder. documented in this encounterCar[facility]09-17-2025 Hospital Discharge instructions* Discharge Instructions* Vanna Laws RN - 06/12/2025 1:47 PM EDT Verbally reviewed discharge instructions for care and follow up. Previous print out of these instructions were given with prior treatment.Patient verbalized understanding of these instructions. Today's copy offered and declined. documented in this encounterCar[facility]09-17-2025 History of Present illness Narrative* Vanna Laws RN - 06/12/2025 1:45 PM EDT Allergy injection flow sheet Identification of own vial of serum Delayed reaction URI with or without wheezing Time of injection Discharge time Yes No No 2002 8248 Injection Schedule Concentration Dose Location Vial Expiration Date Reviewed Gold A 0.4ml Left arm yes Gold B 0.4ml Right arm yes Injection given by: GABRIEL CARLOS Injection site checked upon discharge by: GABRIEL CARLOS Comments: no local Reminder: document all injections in the allergy binder. documented in this encounterCar[facility]09-05-2025 History of Present illness Narrative* Collette Piña RN - 05/31/2025 1:17 PM EDT Patient provided discharge papers. Education and teaching provided on new medications with potential side effects. All previous home medications reviewed with next due time. Patient denies any questions regarding medications. Pharmacy verified. Education provided on BAILEE and blood pressure management. Activity as tolerated and regular diet on discharge reviewed with patient. Follow up appointment with Dr. Ardon and Vivian Might reviewed with patient. IV removed. Information provided regarding strokes and heart attacks. Discharge teaching reviewed with patient, no further questions at this time.Patient taken to hospital entrance by wheelchair. * Deb Kevin RCP - 05/31/2025 9:44 AM EDT RESPIRATORY ASSESSMENT PROTOCOL Patient Name: Virgil Warner Room#: [id number]/[id number] : 1975 Admitting diagnosis: Heart murmur [R01.1] Lightheaded [R42] BAILEE (acute kidney injury) [N17.9] Medical History: Past Medical History: Diagnosis Date [...] Obesity (BMI 30.0-34.9) LAYNE (obstructive sleep apnea) CPAP nightly Osteoarthritis Restless leg syndrome RSD (reflex sympathetic dystrophy) RSD (reflex sympathetic dystrophy) Smoker PATIENT ASSESSMENT LABORATORY DATA Hematology: Lab Results Component Value Date/Time WBC 6.8 05/31/2025 05:50 AM RBC 3.51 05/31/2025 05:50 AM HGB 10.7 05/31/2025 05:50 AM HCT 35.1 05/31/2025 05:50 AM PLT 328 05/31/2025 05:50 AM Chemistry: Lab Results Component Value Date/Time PHART 7.293 07/02/2013 04:20 PM HYZ0BES 36.8 07/02/2013 04:20 PM PO2ART 70.6 07/02/2013 04:20 PM I3APIKPV 92.6 07/02/2013 04:20 PM WSH4NCL 17.4 07/02/2013 04:20 PM PBEA NOT REPORTED 07/02/2013 04:20 PM NBEA 8.3 07/02/2013 04:20 PM VITALS Pulse: 86 Respirations: 16 BP: (!) 143/73 SpO2: 94 % O2 Device: None (Room air) Temp: 96.9 F (36.1 C) SKIN COLOR [x] Normal [] Pale [...] smoker or quit w/ in 12 mos [x] Pulm. History and, or 20 pk/yr smoking hx [] Admitted w/ acute pulm. dx and, or has been admitted w/ pulm. dx 2 or more times over past 12 mos 3 Surgical History this Admit (SURG HX) [x] No surgery [] General surgery [] Lower abdominal [] Thoracic or upper abdominal [] Thoracic w/ pulm. disease 0 Chest X-Ray (CXR)/CT Scan [x] Clear or not applicable [] Not available [] Atelectasis or pleural effusions [] Localized infiltrate or pulm. edema [] Con-solidated Infiltrates, bilateral, or in more than 1 lobe 0 TOTAL ACUITY: 4 CARE PLAN If Acuity Level is 2, [...] [] COUGH [] SURGICAL HISTORY (SURG HX) [] CHEST XRAY (CXR) Goal: Improvement in sputum mobilization in patients with ineffective airway clearance. Reverse atelectasis. [] Bronchopulmonary Hygiene Protocol Total Acuity: 14-28 [] Secondary Assessment in 24 hrs Total Acuity: 9-13 [] Secondary Assessment in 24 hrs Total Acuity: 4-8 [] Secondary Assessment in 24 hrs Total [...] is 2 or above in the following: [] PULMONARY HISTORY (PULM HX) Goal: Assist patient in quitting smoking to slow or stop the progression of lung disease. [] Smoking Cessation Protocol SMOKING CESSATION EDUCATION provided according to policy RT_201: (alfredito with an X) ____Yes ____ No ____ NA Smoking Cessation Booklet given: ____Yes ____No ____Patient Refused * Shelley Champagne APRN - CNP - 05/31/2025 9:32 AM EDT Physician Progress Note PATIENT: VIRGIL WARNER CSN #: [id number] : 1975 ADMIT DATE: 05/29/2025 10:44 PM DISCH DATE: RESPONDING PROVIDER #: SHELLEY HUYNH BELT PICKER - [facility] QUERY TEXT: Orthostatic hypotension is documented in the medical record in the consult note from 05/30. Please clarify the cause such as: The clinical indicators include: --ED provider note from 05/29 reflects hypotension --H&P from 05/30 reflects BAILEE, dehydration --Consult note from 05/30 reflects She does have significant peripheral neuropathy which i told her is contributing to her dizziness and orthostatic hypotension, neuropathy is sometimes associated with dysautonomia --MAR shows IVF at 150mL/hr, 1,000mL IVF bolus Options provided: -- Orthostatic hypotension secondary to diabetic autonomic neuropathy -- Orthostatic hypotension secondary to dehydration -- Orthostatic hypotension secondary to diabetic autonomic neuropathy and dehydration -- Other - I will add my own diagnosis -- Disagree - Not applicable / Not valid -- Disagree - Clinically unable to determine / Unknown -- Refer to Clinical Documentation Reviewer PROVIDER RESPONSE TEXT: The orthostatic hypotension is secondary to dehydration. Query created by: Dara Pino on 05/31/2025 8:57 AM Electronically signed by: SHELLEY Bullard CNP 05/31/2025 9:31 AM * Collette Piña, RN - 05/31/2025 6:58 AM EDT Patient awake and resting in bed upon clinical writer entering the room. Patient is alert and oriented x 4. Vitals and assessment completed, see flowsheets. Patient states that she is hoping to get dischargedtoday . Whiteboard updated. Patient denies any further needs at this time. Call light within reach.Care ongoing. * Sahara Coleman RPH - 05/31/2025 6:52 AM EDT Images from the original note were not included. [facility] Department of Pharmacy Pharmacy Renal Adjustment Note Virgil Warner is a 50 y.o. female. Pharmacist assessment of renally cleared medications. Recent Labs 05/30/25 0037 05/30/25 0547 05/31/25 0550 CREATININE 2.9* 2.4* 1.1* Estimated Creatinine Clearance: 74 mL/min (A) (based on SCr of 1.1 mg/dL (H)). Height: Ht Readings from Last 1 Encounters: 05/31/25 1.676 m (5' 6 ) Weight: Wt Readings from Last 1 Encounters: 05/31/25 107.2 kg (236 lb 4.8 oz) The following medication(s) have been adjusted based upon renal function: Lyrica increased back to 150 mg TID for CrCl > 60 ml/min. Thank you, Sahara Coleman RPH,05/31/2025,6:51 AM * Dara Block RD, HUEY - 05/31/2025 5:26 AM EDT Comprehensive Nutrition Assessment Type and Reason for Visit: Initial, Positive nutrition screen Nutrition Recommendations/Plan: Encourage 3 carbs choices at home per meal for glycemic control and weight reduction. Recommend Ca++ and vitamin D supplementation Malnutrition Assessment: Malnutrition Status: No malnutrition (05/31/25 0739) Context: Acute Illness Findings of the 6 clinical characteristics of malnutrition: Energy Intake: No decrease in energy intake Weight Loss: No weight loss Body Fat Loss: No body fat loss Muscle Mass Loss: No muscle mass loss Fluid Accumulation: Mild Generalized Steam Flattener Strength: Not Performed Nutrition Assessment: Limited adherence to nutrition recommendations r/t altered endocrine function, AEB A1C 8.8. A1C worse than last encounter but patient states it's been improving as she is often >10. States carb goals of 4 but is nonspecific otherwise. Recently started on fosamax and has low vitamin D. Recommended both Ca++ and vitamin D supplementation. Renal indices improving with volume provision. Hopes tod/c home today. Nutrition Related Findings: active b/s. generalized edema. Wound Type: None Current Nutrition Intake & Therapies: Average Meal Intake: Unable to assess (no PO records) Average Supplements Intake: None Ordered ADULT DIET; Regular; 4 carb choices (60 gm/meal) Anthropometric Measures: Height: 167.6 cm (5' 6 ) Rumsey Body Weight (IBW): 130 lbs (59 kg) Admission Body Weight: 103 kg (227 lb) Current Body Weight: 106 kg (233 lb 11 oz), 179.8 % IBW. Weight Source: Bed scale Current BMI (kg/m2): 37.7 Usual Body Weight: 103.4 kg (228 lb) (a week ago) % Weight Change (Calculated): 2.5 Weight Adjustment For: No Adjustment BMI Categories: Obese Class 2 (BMI 35.0 -39.9) Estimated Daily Nutrient Needs: Energy Requirements Based On: Kcal/kg Weight Used for Energy Requirements: Current Energy (kcal/day): 9983-7764 (15-18) Weight Used for Protein Requirements: Rumsey Protein (g/day): 65-77 (1.1-1.3) Method Used for Fluid Requirements: 1 ml/kcal Fluid (ml/day): 1900 Nutrition Diagnosis: Limited adherence to nutrition-related recommendations related to endocrine dysfunction as evidenced by lab values Lab Results Component Value Date NA 139 05/31/2025 K 5.2 05/31/2025 CL 107 05/31/2025 CO2 20 05/31/2025 BUN 33 (H) 05/31/2025 CREATININE 1.1 (H) 05/31/2025 GLUCOSE 118 (H) 05/31/2025 CALCIUM 8.7 05/31/2025 BILITOT <0.2 05/30/2025 ALKPHOS 80 05/30/2025 AST 25 05/30/2025 ALT 24 05/30/2025 LABGLOM 59 (L) 05/31/2025 GFRAA >60 10/23/2021 GLOB NOT REPORTED 02/09/2021 Hemoglobin A1C Date Value Ref Range Status 04/25/2025 8.8 (H) 4.0 - 6.0 % Final Lab Results Component Value Date VITD25 <6.0 (L) 07/24/2024 Nutrition Interventions: Food and/or Nutrient Delivery: Continue Current Diet Nutrition Education/Counseling: Education/Counseling initiated Coordination of Nutrition Care: Continue to monitor while inpatient Plan of Care discussed with: patient Goals: Goals: Meet at least 75% of estimated needs, by next RD assessment Type of Goal: New goal Previous Goal Met: New Goal Nutrition Monitoring and Evaluation: Behavioral-Environmental Outcomes: None Identified Food/Nutrient Intake Outcomes: Food and Nutrient Intake Physical Signs/Symptoms Outcomes: Biochemical Data, Weight, Fluid Status or Edema Discharge Planning: Recommend pursue outpatient diabetes education Dara Block RD, HUEY Contact: [phone] * Bisi Mercado RN - 05/30/2025 6:55 PM EDT Peer Support Specialist at bedside to complete evening assessment. Upon entry to room, pt resting in bed, respirations even and non-labored while on room air. Vitals obtained and assessment completed, see flow sheet for details. Pt denies needs from clinical writer at this time. Call light in reach. Care is ongoing. * Sury Caldwell OTR/Dee - 05/30/2025 8:26 AM EDT [facility] Inpatient/Observation Date: 05/30/2025 Patient Name: Virgil Warner : 1975 [x] Pt does not require skilled services due to: PT/OT order received and chart reviewed. Pt reports being up independently in room and functioning at baseline. Pt denies any balance, strength or functional deficits at this time. OT order will be discontinued at this time. Please re-consult if pt has a change or decline in function. Thank you for the opportunity to assist in the care of this patient. Sury Caldwell OTR/L Date: 05/30/2025 * Sonia Baum PT - 05/30/2025 8:17 AM EDT [facility] Inpatient/Observation/Outpatient Rehabilitation Date: 05/30/2025 Patient Name: Virgil Warner [x] Inpatient Acute/Observation [] Outpatient : 1975 [] Pt refused/declined therapy [...] be completed and education for wearing/skin checks [x] Pt does not require skilled services due to: Safe and IND with all mobility. Therapist/Teaching Specialists will attempt to see this patient, at our earliest opportunity. Sonia Baum, PT, DPT Date: 05/30/2025 * Collette Piña, RN - 05/30/2025 7:55 AM EDT Patient awake and resting in bed upon clinical writer entering the room. Patient is alert and oriented x 4. Vitals and assessment completed, see flowsheets. Patient states that she feels tired and fatigued . No shortness of breath or chest pain. Patient ambulated to bathroom as standby assist, but refused to get up in the chair for breakfast at this time. Patient denies any further needs at this time. Call light within reach. Care ongoing. * Guera Du RPH - 05/30/2025 6:52 AM EDT Images from the original note were not included. [facility] Department of Pharmacy Pharmacy Renal Adjustment Note Virgil Warner is a 50 y.o. female. Pharmacist assessment of renally cleared medications. Recent Labs 05/30/25 0037 05/30/25 0547 CREATININE 2.9* 2.4* Estimated Creatinine Clearance: 34 mL/min (A) (based on SCr of 2.4 mg/dL (H)). Height: Ht Readings from Last 1 Encounters: 05/30/25 1.676 m (5' 6 ) Weight: Wt Readings from Last 1 Encounters: 05/30/25 106 kg (233 lb 9.6 oz) The following medication(s) have been adjusted based upon renal function: Pregabalin 150mg po TID decreased to pregabalin 75mg po TID for CrCl 30-60mL/min Thank you, Guera Du RPH,05/30/2025,6:51 AM * Guera Du RPH - 05/30/2025 6:49 AM EDT Images from the original note were not included. [facility] Department of Pharmacy Pharmacy Renal Adjustment Note Virgil Warner is a 50 y.o. female. Pharmacist assessment of renally cleared medications. Recent Labs 05/30/25 0037 05/30/25 0547 CREATININE 2.9* 2.4* Estimated Creatinine Clearance: 34 mL/min (A) (based on SCr of 2.4 mg/dL (H)). Height: Ht Readings from Last 1 Encounters: 05/30/25 1.676 m (5' 6 ) Weight: Wt Readings from Last 1 Encounters: 05/30/25 106 kg (233 lb 9.6 oz) The following medication(s) have been adjusted based upon renal function: Fenofibrate 160mg po daily decreased to fenofibrate 54mg po daily for CrCl 30-<80mL/min. Thank you, Guera Du [facility],05/30/2025,6:48 AM * Jamison Resendiz [facility] - 05/30/2025 5:06 AM EDT PHARMACY NOTE: The electrolyte replacement protocol for potassium/magnesium has been discontinued per P&T guidelines because the patient has reduced renal function (CrCl < 30 mL/min). The patient's most recent potassium & magnesium levels are: Recent Labs 05/30/25 0037 K 5.3 MG 2.5 Estimated Creatinine Clearance: 28 mL/min (A) (based on SCr of 2.9 mg/dL (H)). For patients with decreased renal function (below 30ml/min) needing potassium/magnesium supplementation, please order individual bolus doses with appropriate monitoring. Please contact the inpatient pharmacy with any concerns. Thank you. * Oren Washburn RN - 05/30/2025 4:57 AM EDT Pt arrived to [facility] via wheelchair from ED. Pt able to ambulate to bed without assistance. Vitals and assessment completed as charted, pt alert and oriented x4. Pt denies any pain or current needsat this time. Cardiology consult sheet faxed to office. Call light within reach, care ongoing. * Sarah Sunshine RN - 05/30/2025 4:44 AM EDT Report called to BREANNA Lott at this time. documented in [place]Bon [place] [address]-05-2025 Hospital Discharge instructions* Discharge Instr - Activity* Collette Piña RN - 05/31/2025 12:29 PM EDT Activity as Tolerated * Discharge Instr - Diet* Collette Piña RN - 05/31/2025 12:28 PM EDT Good nutrition is important when healing from an illness, injury, or surgery. Follow any nutrition recommendations given to you during your hospital stay. If you were given an oral nutrition supplement while in the hospital, continue to take this supplement at home. You can take it with meals, in-between meals, and/or before bedtime. These supplements can be purchased at most local grocery stores, pharmacies, and [employer]-stores. If you have any questions about your diet or nutrition, call the hospital and ask for the dietitian. Regular Diet * Discharge Instr - SHAR* Collette Piña RN - 05/31/2025 12:28 PM EDT Continuity of Care Form Patient Name: Virgil Warner : 1975 Admit date: 05/29/2025 Discharge date: Code Status Order: Full Code Advance Directives: Admitting Physician: Emanuel Danielle MD PCP: Vivian Lemos, BELT PICKER - 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 Discharging Nurse: Discharging Hospital Unit/Room#: 0303/0303-01 Discharging Unit Phone Number: Emergency Contact: Extended Emergency Contact Information Primary Emergency Contact: Yoel Warner Address: [address] [place] [id number] Mobile Relation: Spouse Secondary Emergency Contact: Iliana Green Mobile Relation: Child Past Surgical History: Past Surgical History: Procedure Laterality Date ANKLE SURGERY Left 07/23/2024 ANKLE EXTERNAL FIXATOR APPLICATION (ORTHOFIX) performed by Meera Mike DPM at [facility] OR BLADDER SUSPENSION CARDIAC CATHETERIZATION Left 12/31/2015 right radial / Dr. Vargas/ No stents COLONOSCOPY N/A 12/08/2022 COLONOSCOPY POLYPECTOMY SNARE/COLD BIOPSY performed by Tari Curtis MD at [facility] OR COLONOSCOPY 12/08/2022 -polyps(hyperplastic)tortuous colon CYSTOSCOPY Left with stent FOOT CLOSED REDUCTION Left 07/23/2024 FOOT CLOSED REDUCTION PINNING performed by Meera Mike DPM at [facility] OR FOOT SURGERY Left 09/14/2024 REMOVE EXTERNAL FIXATOR LEFT FOOT performed by Meera Mike DPM at [facility] OR FOOT SURGERY Left 09/14/2024 SUBTALAR JOINT FUSION FUSION MIDFOOT MULTIPLE JOINTS LEFT FOOT performed by Meera [facility] DPMat [facility] OR HYSTERECTOMY (CERVIX STATUS UNKNOWN) KIDNEY SURGERY [...] Immunization History Administered Date(s) Administered Influenza A ([id number]) Vaccine PF IM 08/29/2009 Influenza Virus Vaccine [...] Pain in upper limb M79.603 Diabetic neuropathy ([facility]) E11.40 Fibromyalgia M79.7 Depression F32.A Controlled type 2 diabetes mellitus with diabetic polyneuropathy, with long-term current use of insulin ([facility]) E11.42, Z79.4 Ureteric calculus N20.1 Gross hematuria R31.0 History of kidney stones Z87.442 Renal stones N20.0 Idiopathic acute pancreatitis K85.00 Hypertriglyceridemia E78.1 SIRS without infection with organ dysfunction ([facility]) R65.11 Generalized abdominal pain R10.84 Perirectal abscess K61.1 Tobacco abuse Z72.0 Essential hypertension I10 Dyslipidemia E78.5 Type 2 diabetes mellitus with hyperglycemia ([facility]) E11.65 Multiple joint pain M25.50 Abnormal LFTs [...] 2 diabetes mellitus with Charcot joint arthropathy ([facility]) E11.610 Charcot joint of left foot M14.672 Acquired posterior equinus, left M21.862 Diabetes ([facility]) E11.9 Multiple closed fractures of metatarsal bone of left foot S92.302A Dislocation of tarsometatarsal joint of left foot S93.325A Charcot's joint of foot, left M14.672 BAILEE (acute kidney injury) N17.9 Orthostatic hypotension I95.1 Severe obesity (BMI >= 40) ([facility]) E66.01 LAYNE (obstructive sleep apnea) G47.33 Lightheaded R42 Isolation/Infection: Isolation No Isolation Patient Infection Status None to display Nurse Assessment: Last Vital Signs: BP (!) 143/73 Pulse 86 Temp 96.9 F (36.1 C) (Temporal) Resp 16 Ht 1.676 m(5' 6 ) Wt 107.2 kg (236 lb 4.8 oz) LMP 04/14/2016 SpO2 94% BMI 38.14 kg/m Last documented pain score (0-10 scale): Pain Level: 7 Last Weight: Wt Readings from Last 1 Encounters: 05/31/25 107.2 kg (236 lb 4.8 oz) Mental Status: {IP PT MENTAL STATUS:} IV Access: { SHAR IV ACCESS:026469958} Nursing Mobility/ADLs: Walking {CHP DME ADLs:216381403} Transfer {CHP DME ADLs:616149084} Bathing {CHP DME ADLs:554801516} Dressing {CHP DME ADLs:099755398} Toileting {CHP DME ADLs:926808582} Feeding {CHP DME ADLs:545511433} Catering Sous Chef {P DME ADLs:372442089} Med Delivery { SHAR MED Delivery:386050645} Wound Care Documentation and Therapy: Incision 09/14/24 Foot Left (Active) Number of days: 259 Elimination: Continence: Bowel: {YES / NO:} Bladder: {YES / NO:} Urinary Catheter: {Urinary Catheter:308861110} Colostomy/Ileostomy/Ileal Conduit: {YES / NO:} Date of Last BM: Intake/Output Summary (Last 24 hours) at 05/31/2025 1228 Last data filed at 05/31/2025 1150 Gross per 24 hour Intake 4057.74 ml Output 2900 ml Net 1157.74 ml I/O last 3 completed shifts: In: 3831.4 [P.O.:700; I.V.:3131.4] Out: 4050 [Urine:4050] Safety Concerns: { SHAR Safety Concerns:398019140} Impairments/Disabilities: { SHAR Impairments/Disabilities:248554842} Nutrition Therapy: Current Nutrition Therapy: { SHAR Diet List:438402923} Routes of Feeding: {CHP DME Other Feedings:278348742} Liquids: {Truck Service Manager liquid thickness:31470} Daily Fluid Restriction: {CHP DME Yes amt example:988493232} Last Modified Barium Swallow with Video (Video Swallowing Test): {Done Not Done Date:} Treatments at the Time of Hospital Discharge: Respiratory Treatments: Oxygen Therapy: {Therapy; copd oxygen:17185} Ventilator: {[facility] Vent List:637065977} Rehab Therapies: {THERAPEUTIC INTERVENTION:4580898268} Weight Bearing Status/Restrictions: { CC Weight Bearin} Other Medical Equipment (for information only, NOT a DME order): {EQUIPMENT:807562883} Other Treatments: Patient's personal belongings (please select all that are sent with patient): {CHP DME Belongings:879047604} RN SIGNATURE: {Esignature:971868554} CASE MANAGEMENT/SOCIAL WORK SECTION Inpatient Status Date: Readmission Risk Assessment Score: [facility] RISK OF UNPLANNED READMISSION 2.0 14.4 Total Score Discharging to Facility/ Agency Name: Address: Phone: Fax: Dialysis Facility (if applicable) Name: Address: Dialysis Schedule: Phone: Fax: Auto Inspection Specialist/Communications Professor signature: {Esignature:132818890} PHYSICIAN SECTION Prognosis: {Prognosis:8114511938} Condition at Discharge: { Patient Condition:535278610} Rehab Potential (if transferring to Rehab): {Prognosis:9491667702} Recommended Labs or Other Treatments After Discharge: Physician Certification: I certify the above information and transfer of Virgil Warner is necessary for the continuing treatment of the diagnosis listed and that she requires {Admit to AppropriateLevel of Care:88981} for {GREATER/LESS:806755633} 30 days. Update Admission H&P: {CHP DME Changes in HandP:761932060} PHYSICIAN SIGNATURE: {Esignature:937428616} * Attachments The following attachments cannot be sent through Care Everywhere. * Acute Kidney Injury ([place]) * Hypertension: General Info ([place]) documented in this [facility]Car[facility] Discharge instructions* Discharge Instructions* Kelly Boston RN - 05/29/2025 2:28 PM EDT Allergy medications held today. Please call next week to reschedule allergy shots. Follow-up with Dr Ardon's office regarding medication changes and appointment . documented in this encounterCar[facility] History of Present illness Narrative* Kelly Boston RN - 05/29/2025 2:00 PM EDT Patient arrived to scheduled appointment for allergy injections. Blood pressures were reading low. 111/46, 86/41, 86/36, 89/51. Patient denied any other signs or symptoms at this time but stated she just came from physical therapy. Allergy injections were held at this time and a phone call was madeto Dr. Ardon's office. The above information was relayed to Georgie who spoke with the cardiologists on duty. After speaking with the cardiologists Georgie returned my call and stated that the doctorwould like her to hold her Lasix, hold her Lisinopril and drop the dose of her Metoprolol to 50 mg daily. They also wanted to see her in the office on 06-04-25 @ 9:00 am. I explained that I was unable to take a verbal order due to protocol and the office called the patient directly. Discharge instructions were given and the patient denied any further questions at this time. Patient stated she felt well enough to be discharged and no signs of further distress were present at this time. Patient wasencouraged to follow- up with the emergency department for any further signs or symptoms of distress. documented in this encounterCar[facility] History of Present illness Narrative* Olivia Block, PT - 05/29/2025 1:00 PM EDT [facility] Outpatient Physical Therapy Daily Note Patient: Virgil Warner : 1975 CSN #: [id number] Referring Physician: Meera Mike DPM Date: 05/29/2025 Diagnosis: Closed dislocation of tarsal joint of L foot, S93.315A, Charcot's of L foot joint, M14.672, type 2 DM with polyneuropathy, E11.42, vertigo, R42 Treatment Diagnosis: s/p L Lisfranc injury with beam placement, L foot pain, fibromyalgia associated dizziness vs. autonomic dysfunction Onset Date: 07/13/24 PT Insurance Information: [employer] Total # of Visits Approved: 16 Per Physician Order Total # of Visits to Date: 16 05/27/25 Plan of Care/Recert Due Pre-Treatment Pain: 03/05 Subjective: Pt reports today is not a good balance day for her, 03/05 in L foot today. Exercises: Exercise 7: standing slantboard 3 x 30 seconds each gastroc/soleus Exercise 9: rivits on green pad 2 x 15 L Exercise 10: Seated HR 2x20# KB x15 / seated TR 2 x20 Exercise 11: Scitfit L3 x 10 minutes Exercise 13: FSU x5 leg 6 on toes today Exercise 14: lateral walk on toes at counter x 2 laps Exercise 15: SLS on airex pad 2 x 30 each Exercise 16: Sit to stands from the chair 2x6 Exercise 17: congregational pews on air ex 1x minute Assessment Assessment: Continued with calf strength and ankle stability this date. Pt with limited tolerance to all activites. Pt with multiple requests to do 30s or 15s for repetitions rather than the [id number] set by therapist. Pt reports multiple times per session that therpist is pushing her today as she usuall does 15s or 30s of an activity and today asked to complete 45s or 60s to display progression. Exercises completed as indicated in flow sheet, pt requries multiple seated rest breaks d/t fatigue. Will plan to d/c pt at this time. Activity Tolerance Activity Tolerance: Patient tolerated treatment well, Patient limited by pain, Patient limited by fatigue Patient Education Patient Education: HEP Pt verbalized/demonstrated good understanding: [x] Yes [] No, pt required further clarification. Post Treatment Pain: 6/10 Plan Plan Frequency: 2 Plan weeks: 3 Goals (Total # of Visits to Date: 16) Short Term Goals Time Frame for Short Term Goals: 3 weeks Short Term Goal 1: Patient will be initiated with a HEP - MET Short Term Goal 2: Patient will tolerate exercise without increased pain or symptoms. - NOT MET Shelter Goals Time Frame for Shelter Goals : 5 weeks Shelter Goal 1: Patient will be independent and compliant with a HEP [facility] Goal 2: Patient will improve bilateral ankle dorsiflexion ROM to >7* for ambulation. MET- 12 degrees left DF [facility] Tender Goal 3: Patient will improve L ankle strength to >/= 4/5 in all planes to improve stability with ambulation. Progressing (04/29) : left DF:4/5, PF:4/5 ,Inv: 4/5, Rosa: 4/5 Shelter Goal 4: Patient will be able to hold SLS for 30 seconds without LOB. (04/30) Bilateral SLS about 2-3 seconds before LOB [facility] Tender Goal 5: Patient will report 70% improvement in overall symptoms and function - She reports she is 50-60% better overall. She reports she feels like she lacks balance and strength. Minutes Tracking: Time In: 1300 Time Out: 1343 Minutes: 43 Timed Code Treatment Minutes: 41 Minutes OLIVIA BLOCK, PT, DPT Date: 05/29/2025 documented in this encounterCar[facility]28[facility] Hospital Discharge instructions* Discharge Instructions* Vanna Laws RN - 05/23/2025 2:35 PM EDT Verbally reviewed discharge instructions for care and follow up. Previous print out of these instructions were given with prior treatment.Patient verbalized understanding of these instructions. Today's copy offered and declined. documented in this encounterCar[facility]08[facility]28[facility] History of Present illness Narrative* Vanna Laws RN - 05/23/2025 1:15 PM EDT Allergy injection flow sheet Identification of own vial of serum Delayed reaction URI with or without wheezing Time of injection Discharge time Yes No No [id number] Injection Schedule Concentration Dose Location Vial Expiration Date Reviewed GOLD A 0.2ML LEFT ARM YES GOLD B 0.2ML RIGHT ARM YES Injection given by: GABRIEL RN Injection site checked upon discharge by: GABRIEL RN Comments: no local Reminder: document all injections in the allergy binder. documented in this encounterBon [facility] History of Present illness Narrative* Hussein Rich PTA - 05/20/2025 1:30 PM EDT Physical Therapy [facility] Outpatient Physical Therapy Daily Note Patient: Virgil Warner : 1975 CSN #: [id number] Referring Physician: Meera Mike DPM Date: 05/20/2025 Treatment Diagnosis: s/p L Lisfranc injury with beam placement, L foot pain Onset Date: 07/13/24 PT Insurance Information: [employer] Total # of Visits Approved: 16 Per Physician Order Total # of Visits to Date: 14 No Show: 0 Canceled Appointment: 1 05/27/25 Plan of Care/Recert Due Pre-Treatment Pain: 03/05 Subjective: Patient reports no notable changes since last session, still having balance issues and right knee is bothering her more today. Reports she felt okay after last session. Exercises: Exercise 1: HEP: gastroc stretch with towel 2x30 seconds, YTB PF, eversion and inversion Exercise 6: rockerboard 3 way with focus on motion of ankle x10 Exercise 7: standing slantboard 3 x 30 seconds each gastroc/soleus Exercise 9: rivits on green pad x12 Exercise 10: Seated HR 2x15# KB x15 / seated TR 2 x15 Exercise 11: Scitfit L1 x 10 minutes Exercise 12: Heel raises 2x12, toe raises with bottom against counter 2x12 Exercise 13: FSU x5 leg 6 on toes today Exercise 14: lateral walk on toes at counter 2x 6 ft Exercise 16: Sit to stands from the chair 2x10 Exercise 17: congregational pews on air ex 1x minute Assessment Body Structures, Functions, Activity Limitations Requiring Skilled Therapeutic Intervention: Decreased functional mobility , Decreased ADL status, Decreased ROM, Decreased strength, Decreased endurance, Decreased balance, Decreased high- level IADLs, Increased pain Assessment: Patient reports intermittent bouts of want to lean backwards when standing today. Added congregational pews on air ex for further ankle stabiltiy training. Vc on proper weightshfitng to even out weightbearing on bilat ankles, continues to demo moderate left sided lean with excercises, diffuclty correcting balance with retro leaning motions. 1x posterior LOB with STS and required Matt to prevent backwards fall. Moderate fatiuge and ankle sorness reported after therapy. Activity Tolerance Activity Tolerance: Patient limited by pain, Patient limited by endurance Patient Education Patient Education: Progression of exercise Pt verbalized/demonstrated good understanding: [x] Yes [] No, pt required further clarification. Post Treatment Pain: 6-04/04 Plan Plan Frequency: 2 Plan weeks: 3 Goals (Total # of Visits to Date: 14) Short Term Goals Time Frame for Short Term Goals: 3 weeks Short Term Goal 1: Patient will be initiated with a HEP - MET Short Term Goal 2: Patient will tolerate exercise without increased pain or symptoms. - NOT MET Shelter Goals Time Frame for Vineyard Tender Goals : 5 weeks Shelter Goal 1: Patient will be independent and compliant with a HEP [facility] Tender Goal 2: Patient will improve bilateral ankle dorsiflexion ROM to >7* for ambulation. MET- 12 degrees left DF Shelter Goal 3: Patient will improve L ankle strength to >/= 4/5 in all planes to improve stability with ambulation. Progressing (04/29) : left DF:4/5, PF:4/5 ,Inv: 4/5, Rosa: 4/5 [facility] Tender Goal 4: Patient will be able to hold SLS for 30 seconds without LOB. (04/30) Bilateral SLS about 2-3 seconds before LOB [facility]yard Tender Goal 5: Patient will report 70% improvement in overall symptoms and function - She reports she is 50-60% better overall. She reports she feels like she lacks balance and strength. Minutes Tracking: Time In: 1326 Time Out: 1413 Minutes: 47 Timed Code Treatment Minutes: 47 Minutes Hussein Rich PTA Date: 05/20/2025 Cosigned by Olivia Nam PT at 05/20/2025 2:44 PM EDT documented in this encounterCar[facility] Hospital Discharge instructions* Discharge Instructions* Shelley Sunshine RN - 05/16/2025 2:31 PM EDT Verbally reviewed discharge instructions for care and follow up. Previous print out of these instructions were given with prior treatment.Patient verbalized understanding of these instructions. Today's copy offered and declined. documented in this encounterCar[facility]08-21-[facility] History of Present illness Narrative* Shelley Sunshine RN - 05/16/2025 2:30 PM EDT Allergy injection flow sheet Identification of own vial of serum Delayed reaction URI with or without wheezing Time of injection Discharge time Yes No No [id number] [id number] Injection Schedule Concentration Dose Location Vial Expiration Date Reviewed Gold#A 0.1ml left yes Gold#B 0.1ml right Injection given by: Radha CARLOS Injection site checked upon discharge by: Radha CARLOS Comments: no local Reminder: document all injections in the allergy binder. documented in this encounterCar[facility]08[facility] History of Present illness Narrative* Hussein Rich PTA - 05/16/2025 1:30 PM EDT Physical Therapy [facility] Outpatient Physical Therapy Daily Note Patient: Virgil Warner : 1975 CSN #: [id number] Referring Physician: Meera Mike DPM Date: 05/16/2025 Treatment Diagnosis: s/p L Lisfranc injury with beam placement, L foot pain Onset Date: 07/13/24 PT Insurance Information: [employer] Total # of Visits Approved: 16 Per Physician Order Total # of Visits to Date: 13 No Show: 0 Canceled Appointment: 1 05/27/25 Plan of Care/Recert Due Pre-Treatment Pain: 11/05 Subjective: Patient reports to therapy stating balance issues are getting worst but feels better today. Reports f/u with MD earlier who diagnosed patient with osteoporosis, also was given script for vertigo and to start PT for vertigo starting next week. Reports ankle is getting stronger but still has strength deficits, balance from potential vertigo makes therapy difficulty for ankle. Exercises: Exercise 1: HEP: gastroc stretch with towel 2x30 seconds, YTB PF, eversion and inversion Exercise 6: rockerboard 3 way with focus on motion of ankle x10 Exercise 7: standing slantboard 3 x 30 seconds each gastroc/soleus Exercise 9: rivits on green pad x12 Exercise 10: Seated HR 15# KB x15 / seated TR 2 x15 Exercise 11: Scitfit L1 x 10 minutes Exercise 12: Heel raises 2x12, toe raises with bottom against counter 2x12 Exercise 13: FSU x5 leg 6 on toes today Exercise 14: lateral walk on toes at counter 2x 6 ft Exercise 16: Sit to stands from the chair 2x10 Assessment Body Structures, Functions, Activity Limitations Requiring Skilled Therapeutic Intervention: Decreased functional mobility , Decreased ADL status, Decreased ROM, Decreased strength, Decreased endurance, Decreased balance, Decreased high- level IADLs, Increased pain Assessment: Patient reports more right ankle and calf stiffness when compared to left. Progressed excercises with a few additions with focus on bilat ankle strengthening and staiblity training, continues to demo limited bilat ankle functional strength and staiblity with excercises today. Activity Tolerance Activity Tolerance: Patient limited by pain, Patient limited by endurance Patient Education Patient Education: Progression of exercise Pt verbalized/demonstrated good understanding: [x] Yes [] No, pt required further clarification. Post Treatment Pain: 04/04 Plan Plan Frequency: 2 Plan weeks: 3 Goals (Total # of Visits to Date: 13) Short Term Goals Time Frame for Short Term Goals: 3 weeks Short Term Goal 1: Patient will be initiated with a HEP - MET Short Term Goal 2: Patient will tolerate exercise without increased pain or symptoms. - NOT MET Vineyard Tender Goals Time Frame for Shelter Goals : 5 weeks Vineyard Tender Goal 1: Patient will be independent and compliant with a HEP [facility]yard Tender Goal 2: Patient will improve bilateral ankle dorsiflexion ROM to >7* for ambulation. MET- 12 degrees left DF [facility]yard Tender Goal 3: Patient will improve L ankle strength to >/= 4/5 in all planes to improve stability with ambulation. Progressing (04/29) : left DF:4/5, PF:4/5 ,Inv: 4/, Rosa: 4/5 [facility]yard Tender Goal 4: Patient will be able to hold SLS for 30 seconds without LOB. (04/30) Bilateral SLS about 2-3 seconds before LOB [facility]yard Tender Goal 5: Patient will report 70% improvement in overall symptoms and function - She reports she is 50-60% better overall. She reports she feels like she lacks balance and strength. Minutes Tracking: Time In: 1330 Time Out: 1414 Minutes: 44 Timed Code Treatment Minutes: 44 Minutes Hussein Rich PTA Date: 05/16/2025 Cosigned by Olivia Nam PT at 05/16/2025 2:19 PM EDT documented in this encounterBon [facility] History of Present illness Narrative* Javed Melendrez - 05/13/2025 2:30 PM EDT Physical Therapy Patient cancelled and rescheduled due to not feeling well. Cosigned by Olivia Nam PT at 05/13/2025 1:51 PM EDT documented in this encounterBon [facility]08[facility] History of Present illness Narrative* Hussein Rich PTA - 05/10/2025 2:30 PM EDT Physical Therapy [facility] Outpatient Physical Therapy Daily Note Patient: Virgil Warner : 1975 CSN #: [id number] Referring Physician: Meera Mike DPM Date: 05/10/2025 Treatment Diagnosis: s/p L Lisfranc injury with beam placement, L foot pain Onset Date: 07/13/24 PT Insurance Information: [employer] Total # of Visits Approved: 16 Per Physician Order Total # of Visits to Date: 12 No Show: 0 Canceled Appointment: 0 05/27/25 Plan of Care/Recert Due Pre-Treatment Pain: 04/04 Subjective: Reports same pain in low back and foot but felt better after yesterday's treatment. Continues to feel off balance and spoke with MD regarding balance issues, states it is inner ear issues. Exercises: Exercise 1: HEP: gastroc stretch with towel 2x30 seconds, YTB PF, eversion and inversion Exercise 2: sink exercise 1 UE support x 15 Exercise 7: standing slantboard 3 x 30 seconds each gastroc/soleus Exercise 9: rivits on green pad x12 Exercise 11: Scitfit L1 x 10 minutes Exercise 12: Heel raises 2x12, toe raises with bottom against counter 2x12 Exercise 13: FSU/LSU x10-15 each leg 6 - forward only Exercise 16: Sit to stands from the chair 2x6 Assessment Body Structures, Functions, Activity Limitations Requiring Skilled Therapeutic Intervention: Decreased functional mobility , Decreased ADL status, Decreased ROM, Decreased strength, Decreased endurance, Decreased balance, Decreased high- level IADLs, Increased pain Assessment: Pt continues to feel more off balance even more than yesterday, held progressions secondary to increase unsteadiness. Demos moderate fatiuge and required several rest breaks today. Was more unsteady and reuqired CG/SBA with excercsies with more lateral lean noted. Will progress as able. Activity Tolerance Activity Tolerance: Patient limited by pain, Patient limited by endurance Patient Education Patient Education: Progression of exercise Pt verbalized/demonstrated good understanding: [x] Yes [] No, pt required further clarification. Post Treatment Pain: 04/04 Plan Plan Frequency: 2 Plan weeks: 3 Goals (Total # of Visits to Date: 12) Short Term Goals Time Frame for Short Term Goals: 3 weeks Short Term Goal 1: Patient will be initiated with a HEP - MET Short Term Goal 2: Patient will tolerate exercise without increased pain or symptoms. - NOT MET [facility]yard Tender Goals Time Frame for Shelter Goals : 5 weeks Shelter Goal 1: Patient will be independent and compliant with a HEP [facility]yard Tender Goal 2: Patient will improve bilateral ankle dorsiflexion ROM to >7* for ambulation. MET- 12 degrees left DF Shelter Goal 3: Patient will improve L ankle strength to >/= 4/5 in all planes to improve stability with ambulation. Progressing (04/29) : left DF:4/5, PF:4/5 ,Inv: 4/, Rosa: 4/5 [facility]yard Tender Goal 4: Patient will be able to hold SLS for 30 seconds without LOB. (04/30) Bilateral SLS about 2-3 seconds before LOB [facility]yard Tender Goal 5: Patient will report 70% improvement in overall symptoms and function - She reports she is 50-60% better overall. She reports she feels like she lacks balance and strength. Minutes Tracking: Time In: 1430 Time Out: 1514 Minutes: 44 Timed Code Treatment Minutes: 44 Minutes Hussein Rich PTA Date: 05/10/2025 Cosigned by Olivia Nam, PT at 05/10/2025 3:14 PM EDT [facility] Hospital Discharge instructions* Discharge Instructions* Vanna Laws RN - 05/09/2025 3:38 PM EDT Verbally reviewed discharge instructions for care and follow up. Previous print out of these instructions were given with prior treatment.Patient verbalized understanding of these instructions. Today's copy offered and declined. documented in this [facility]Car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 She feels off balance today. Exercises: Exercise 1: HEP: gastroc stretch with towel 2x30 seconds, YTB PF, eversion and inversion Exercise 5: BTB inversion 2x10, BTB eversion 2x15 Exercise 7: standing slantboard 3 x 30 seconds each gastroc/soleus Exercise 11: Scitfit L1 x 10 minutes Exercise 12: Heel raises 2x12, toe raises with bottom against counter 2x12 Exercise 13: FSU/LSU x10-15 each leg 6 - held lateral step ups Exercise 15: SLS on airex pad 2x45 each Exercise 16: Sit to stands from the chair 2x6 Exercise 17: Retro walkout 10# x2--not today Assessment Assessment: Continued current ther ex to improve functional strength and endurance; held progressions d/t increased pain and pt feeling off balance. Will continue. Activity Tolerance Activity Tolerance: Patient limited by pain Patient Education Exercise technique Pt verbalized/demonstrated good understanding: [x] Yes [] No, pt required further clarification. Post Treatment Pain: 02/02 Plan Plan Frequency: 2 Plan weeks: 3 Goals (Total # of Visits to Date: 11) Short Term Goals Time Frame for Short Term Goals: 3 weeks Short Term Goal 1: Patient will be initiated with a HEP - MET Short Term Goal 2: Patient will tolerate exercise without increased pain or symptoms. - NOT MET Shelter Goals Time Frame for Shelter Goals : 5 weeks Shelter Goal 1: Patient will be independent and compliant with a HEP Shelter Goal 2: Patient will improve bilateral ankle dorsiflexion ROM to >7* for ambulation. MET- 12 degrees left DF Shelter Goal 3: Patient will improve L ankle strength to >/= 4/5 in all planes to improve stability with ambulation. Progressing (04/29) : left DF:4/5, PF:4/5 ,Inv: 4/5, Rosa: 4/5 Vineyard Tender Goal 4: Patient will be able to hold SLS for 30 seconds without LOB. (04/30) Bilateral SLS about 2-3 seconds before LOB Vineyard Tender Goal 5: Patient will report 70% improvement in overall symptoms and function - She reports she is 50-60% better overall. She reports she feels like she lacks balance and strength. Minutes Tracking: Time In: 1459 Time Out: 1539 Minutes: 40 Timed Code Treatment Minutes: 39 Minutes Sonia Baum PT, DPT Date: 05/09/2025 documented in [address] encounterCar[facility] History of Present illness Narrative* Vanna Laws RN - 05/09/2025 2:15 PM EDT Allergy injection flow sheet Identification of own vial of serum Delayed reaction URI with or without wheezing Time of injection Discharge time Yes No No 8822 [id number] Injection Schedule Concentration Dose Location Vial Expiration Date Reviewed Gold A 0.05ml Left arm yes Gold B 0.05ml Right arm yes Injection given by: GABRIEL CARLOS Injection site checked upon discharge by: GABRIEL CARLOS Comments: no local Reminder: document all injections in the allergy binder. documented in this encounterCar[facility] Hospital Discharge instructions* Discharge Instructions* Vanna Laws RN - 05/02/2025 3:56 PM EDT Verbally reviewed discharge instructions for care and follow up. Previous print out of these instructions were given with prior treatment.Patient verbalized understanding of these instructions. Today's copy offered and declined. documented in this encounterCar[facility] History of Present illness Narrative* Vanna Laws RN - 05/02/2025 2:15 PM EDT Allergy injection flow sheet Identification of own vial of serum Delayed reaction URI with or without wheezing Time of injection Discharge time Yes no No [id number] (patient had another appointment in the hospital) Injection Schedule Concentration Dose Location Vial Expiration Date Reviewed Gold A 0.03ml Left arm yes Gold B 0.03ml Right arm yes Injection given by: GABRIEL CARLOS Injection site checked upon discharge by: GABRIEL CARLOS Comments: no local Reminder: document all injections in the allergy binder. documented in this encounterCar[facility] History of Present illness Narrative* Olivia Nam, PT - 04/30/2025 12:45 PM EDT [facility] Outpatient Physical Therapy Daily Note Patient: Virgil Warner : 1975 CSN #: [id number] Referring Physician: Meera Mike DPM Date: 04/30/2025 Treatment Diagnosis: s/p L Lisfranc injury with beam placement, L foot pain Onset Date: 07/13/24 PT Insurance Information: Medical [employer] Total # of Visits Approved: 16 Per Physician Order Total # of Visits to Date: 10 No Show: 0 Canceled Appointment: 0 05/27/25 Plan of Care/Recert Due Pre-Treatment Pain: 02/02 Subjective: Patient reports her knee and back have been bothering her and limit her ambulation. Shereports 5/10 foot pain coming into therapy today. She reports her foot is 50-60% better overall. She reports continued bilateral LE weakness and difficulty with balance espcially with turns, sit to stands, standing still for longer periods of time. She reports she is going to pain management for her back this week. Exercises: Exercise 4: Amb drills: 180* turn and ambulate, side stepping x1/2 gym length ea direction, 4 forward steps/2 retro steps x1 gym length Exercise 5: BTB inversion 2x10, BTB eversion 2x15 Exercise 7: standing slantboard 3 x 30 seconds each gastroc/soleus Exercise 11: Scitfit L1 x 10 minutes Exercise 12: Heel raises 2x12, toe raises with bottom against counter 2x12 Exercise 16: Sit to stands from the chair 2x6 Exercise 17: Retro walkout 10# x2 Measures obtained for physician update Assessment Body Structures, Functions, Activity Limitations Requiring Skilled Therapeutic Intervention: Decreased functional mobility , Decreased ADL status, Decreased ROM, Decreased strength, Decreased endurance, Decreased balance, Decreased high- level IADLs, Increased pain Assessment: The patient has attended her initial evaluation and 9 follow-up appointments since returning to PT. She reports her ankle is 50-60% better overall. She reports She reports her foot is 50-60% better overall. She reports continued bilateral LE weakness and difficulty with balance espcially with turns, sit to stands, standing still for longer periods of time. She reports she is going to pain management for her back this week. L ankle strength is improving, but balance continues to be an issue for her. Her hip muscle weakness and core muscle weakness play a big role in her balance deficits as well. She demonstrates trendelenberg gait which causes her to lose her balance. The patientwas progressed to exercises to work toward her custodial goals today. She requires seated rest breaks throughout due to back and hip pain/burning sensation. She would benefit from continued PT to work toward her custodial goals. She was encouraged to return to performing her open swim exercises in the pool on her off days. Activity Tolerance Activity Tolerance: Patient limited by pain Patient Education Patient Education: Progression of exercise Pt verbalized/demonstrated good understanding: [x] Yes [] No, pt required further clarification. Post Treatment Pain: 03/05 Plan Plan Frequency: 2 Plan weeks: 3 Goals (Total # of Visits to Date: 10) Short Term Goals Time Frame for Short Term Goals: 3 weeks Short Term Goal 1: Patient will be initiated with a HEP - MET Short Term Goal 2: Patient will tolerate exercise without increased pain or symptoms. - NOT MET Shelter Goals Time Frame for Shelter Goals : 5 weeks Shelter Goal 1: Patient will be independent and compliant with a HEP Shelter Goal 2: Patient will improve bilateral ankle dorsiflexion ROM to >7* for ambulation. MET- 12 degrees left DF Vineyard Tender Goal 3: Patient will improve L ankle strength to >/= 4/5 in all planes to improve stability with ambulation. Progressing (04/29) : left DF:4/5, PF:4/5 ,Inv: 4/5, Rosa: 4/5 Vineyard Tender Goal 4: Patient will be able to hold SLS for 30 seconds without LOB. (04/30) Bilateral SLS about 2-3 seconds before LOB Vineyard Tender Goal 5: Patient will report 70% improvement in overall symptoms and function - She reports she is 50-60% better overall. She reports she feels like she lacks balance and strength. Minutes Tracking: Time In: 1246 Time Out: 1329 Minutes: 43 Timed Code Treatment Minutes: 41 Minutes Olivia Nam PT, DPT, OCS, Cert. DN Date: 04/30/2025 documented in this encounterCar[facility]08-[facility]25 Hospital Discharge instructions* Discharge Instructions* Shelley Sunshine RN - 04/29/2025 3:14 PM EDT Verbally reviewed discharge instructions for care and follow up. Previous print out of these instructions were given with prior treatment.Patient verbalized understanding of these instructions. Today's copy offered and declined. documented in this encounterCar[facility] History of Present illness Narrative* Shelley Sunshine RN - 04/29/2025 3:00 PM EDT Allergy injection flow sheet Identification of own vial of serum Delayed reaction URI with or without wheezing Time of injection Discharge time Yes No No [id number] Injection Schedule Concentration Dose Location Vial Expiration Date Reviewed Blue#A 0.5ml left yes Blue#B 0.5ml right Injection given by: Radha CARLOS Injection site checked upon discharge by: Radha CARLOS Comments: no local Reminder: document all injections in the allergy binder. documented in this encounterBon [facility]08-04-[facility] History of Present illness Narrative* Hussein RichMILAGROS - 04/29/2025 2:15 PM EDT Physical Therapy [facility] Outpatient Physical Therapy Daily Note Patient: Virgil Warner : 1975 CSN #: [id number] Referring Physician: Meera Mike DPM Date: 04/29/2025 Treatment Diagnosis: s/p L Lisfranc injury with beam placement, L foot pain Onset Date: 07/13/24 PT Insurance Information: Medical [employer] Total # of Visits Approved: 10 Per Physician Order Total # of Visits to Date: 9 No Show: 0 Canceled Appointment: 0 05/10/25 Plan of Care/Recert Due Pre-Treatment Pain: 03/05 Subjective: Patient reports to therapy stating she feels better this week, reports she still had some discomfort in left lateral foot after last session. Reports MRI was orderd for Tuesday, pain inlow back is higher that foot pain. Exercises: Exercise 1: HEP: gastroc stretch with towel 2x30 seconds, YTB PF, eversion and inversion Exercise 2: sink exercise 1 UE support Exercise 5: YTB inversion 2x10, YTB eversion 2x10 Exercise 7: standing slantboard 3 x 30 seconds each gastroc/soleus Exercise 8: forward walk with 1 hold SLS between steps, retro toe/heel laps x2 Exercise 9: rivits on green pad x12 Exercise 10: Seated HR 15# KB x15 / seated TR [id number] this date Exercise 11: Scitfit L1 x 10 minutes Exercise 13: FSU/LSU x10-15 each leg 6 - held lateral step ups Exercise 15: SLS on airex pad 2x45 each // standing HR/TR x20 ea - no air ex today Assessment Body Structures, Functions, Activity Limitations Requiring Skilled Therapeutic Intervention: Decreased functional mobility , Decreased ADL status, Decreased ROM, Decreased strength, Decreased endurance, Decreased balance, Decreased high- level IADLs, Increased pain Assessment: Patient did request early end to session today due to needing to get an allergy shot. During sci-fit patient requested juice box due to sugar being low, requested a few minutes to rest. During ther ex contreras had a second epsiode where she had to sit and drink juice. Required mdoerate rest breaks due to low blood sugar and LBP. Unable to maintain SLS on LLE due to weakness. Activity Tolerance Activity Tolerance: Patient limited by pain Patient Education Patient Education: Progression of exercise Pt verbalized/demonstrated good understanding: [x] Yes [] No, pt required further clarification. Post Treatment Pain: 03/05 Plan Plan Frequency: 2 Plan weeks: 5 Goals (Total # of Visits to Date: 9) Short Term Goals Time Frame for Short Term Goals: 3 weeks Short Term Goal 1: Patient will be initiated with a HEP - MET Short Term Goal 2: Patient will tolerate exercise without increased pain or symptoms. - NOT MET Shelter Goals Time Frame for Shelter Goals : 5 weeks Shelter Goal 1: Patient will be independent and compliant with a HEP Vineyard Tender Goal 2: Patient will improve bilateral ankle dorsiflexion ROM to >7* for ambulation. MET- 12 degrees left DF Shelter Goal 3: Patient will improve L ankle strength to >/= 4/5 in all planes to improve stability with ambulation. Progressing (04/29) : left DF:4/5, PF:4/5 ,Inv: 4/5, Rosa: 4/5 Vineyard Tender Goal 4: Patient will be able to hold SLS for 30 seconds without LOB. (04/29) progressing 30seconds but requires at least 1 UE support Vineyard Tender Goal 5: Patient will report 70% improvement in overall symptoms and function. Minutes Tracking: Time In: 1414 Time Out: 1455 Minutes: 41 Timed Code Treatment Minutes: 39 Minutes Hussein Rich PTA Date: 04/29/2025 Cosigned by Olivia Nam, PT at 04/29/2025 3:27 PM EDT documented in this encounterBon [facility] Hospital Discharge instructions* Discharge Instructions* Vanna Laws RN - 04/25/2025 3:34 PM EDT Verbally reviewed discharge instructions for care and follow up. Previous print out of these instructions were given with prior treatment.Patient verbalized understanding of these instructions. Today's copy offered and declined. documented in this encounterCar[facility] History of Present illness Narrative* Vanna Laws RN - 04/25/2025 3:00 PM EDT Allergy injection flow sheet Identification of own vial of serum Delayed reaction URI with or without wheezing Time of injection Discharge time Yes No No [id number] Injection Schedule Concentration Dose Location Vial Expiration Date Reviewed BLUE A 0.4ML LEFT ARM YES BLUE B 0.4ML RIGHT ARM YES Injection given by: Madison LAWS RN Injection site checked upon discharge by: GABRIEL CARLOS Comments: no local Reminder: document all injections in the allergy binder. documented in this encounterCar[facility] History of Present illness Narrative* Alanna Chappell MILAGROS - 04/25/2025 2:15 PM EDT [facility] Outpatient Physical Therapy Daily Note Patient: Virgil Warner : 1975 CSN #: [id number] Referring Physician: Meera Mike DPM Date: 04/25/2025 Treatment Diagnosis: s/p L Lisfranc injury with beam placement, L foot pain Onset Date: 07/13/24 PT Insurance Information: Medical [employer] Total # of Visits Approved: 10 Per Physician Order Total # of Visits to Date: 8 No Show: 0 Canceled Appointment: 0 05/10/25 Plan of Care/Recert Due Pre-Treatment Pain: 8/10 Subjective: Pt reports 8/10 in B feet this date, mainly on the side and runs across her foot. Pt with radicular symptoms of the R side that shoots all the way down her foot, states she will get a sharp shooting pain that last a couple seconds. Exercises: Exercise 11: Scitfit L1 x 10 minutes Exercise 13: FSU/LSU x10-15 each leg 6 Manual: Soft Tissue Mobilizaton: STM to lateral portion of ankle Other: PROM to ankle as tolerated Assessment Assessment: Pt with increased pain this date with limited activity. Spent most treatment time on manual with mild relief noted. Will continue to progress as tolerated. Activity Tolerance Activity Tolerance: Patient limited by pain Patient Education Patient Education: Progression of exercise Pt verbalized/demonstrated good understanding: [x] Yes [] No, pt required further clarification. Post Treatment Pain: 05/05 Plan Plan Frequency: 2 Plan weeks: 5 Goals (Total # of Visits to Date: 8) Short Term Goals Time Frame for Short Term Goals: 3 weeks Short Term Goal 1: Patient will be initiated with a HEP - MET Short Term Goal 2: Patient will tolerate exercise without increased pain or symptoms. - NOT MET Vineyard Tender Goals Time Frame for Vineyard Tender Goals : 5 weeks Vineyard Tender Goal 1: Patient will be independent and compliant with a HEP Shelter Goal 2: Patient will improve bilateral ankle dorsiflexion ROM to >7* for ambulation. MET- 12 degrees left DF Vineyard Tender Goal 3: Patient will improve L ankle strength to >/= 4/5 in all planes to improve stability with ambulation. Vineyard Tender Goal 4: Patient will be able to hold SLS for 30 seconds without LOB Vineyard Tender Goal 5: Patient will report 70% improvement in overall symptoms and function. Minutes Tracking: Time In: 1415 Time Out: 1450 Minutes: 35 Alanna Chappell PTA Date: 04/25/2025 Cosigned by Olivia Nam, PT at 04/25/2025 3:10 PM EDT documented in this encounterBon [facility]07[facility] Hospital Discharge instructions* Discharge Instructions* Kelly Boston RN - 04/22/2025 3:19 PM EDT Verbally reviewed discharge instructions for care and follow up. Previous print out of these instructions were given with prior treatment.Patient verbalized understanding of these instructions. Today's copy offered and declined. documented in this encounterCar[facility] History of Present illness Narrative* Kelly Boston RN - 04/22/2025 3:00 PM EDT Allergy injection flow sheet Identification of own vial of serum Delayed reaction URI with or without wheezing Time of injection Discharge time Yes No No [id number] Injection Schedule Concentration Dose Location Vial Expiration Date Reviewed Blue Vial A 0.3 ml Left arm yes Blue Vial B 0.3 ml Right arm yes Injection given by: Mark Boston RN Injection site checked upon discharge by: Mark Boston RN Comments: no local Reminder: document all injections in the allergy binder. documented in this encounterCar[facility] History of Present illness Narrative* Alanna Chappell PTA - 04/22/2025 2:15 PM EDT [facility] Outpatient Physical Therapy Daily Note Patient: Virgil Warner : 1975 CSN #: [id number] Referring Physician: Meera Mike DPM Date: 04/22/2025 Treatment Diagnosis: s/p L Lisfranc injury with beam placement, L foot pain Onset Date: 07/13/24 PT Insurance Information: Medical [employer] Total # of Visits Approved: 10 Per Physician Order Total # of Visits to Date: 7 No Show: 0 Canceled Appointment: 0 05/10/25 Plan of Care/Recert Due Pre-Treatment Pain: 7-8/10 Subjective: Patient reports increased pain in R LE and is unsure what is going on, rates 8/10 pain of R LE and 7/10 of L LE. Pt also states that her balance has been off recently as well. Exercises: Exercise 5: YTB inversion 2x10, YTB eversion 2x10 Exercise 7: standing slantboard 3 x 30 seconds each gastroc/soleus Exercise 10: Seated HR 15# KB x15 / seated TR y30--eco this date Exercise 11: Scitfit L1 x 10 minutes Exercise 13: FSU/LSU 10x each leg 6 Exercise 15: SLS on airex pad 2x45 each // standing HR/TR x20 ea Assessment Assessment: Continued with charted therex and added lateral step ups with increased pain in B hips.Pt with increased soreness arriving to therapy this date. Pt declined performance of ambulation drills d/t increased fatigue. Pt able to complete SLS on foam pad with requiring use of UE support. Pt with reports of increased swelling in B LE's. Treatment session limited due to patient having an appointment after. Will continue to progress as tolerated. Activity Tolerance Activity Tolerance: Patient limited by pain Patient Education Patient Education: Progression of exercise Pt verbalized/demonstrated good understanding: [x] Yes [] No, pt required further clarification. Post Treatment Pain: 7-05/05 Plan Plan Frequency: 2 Plan weeks: 5 Goals (Total # of Visits to Date: 7) Short Term Goals Time Frame for Short Term Goals: 3 weeks Short Term Goal 1: Patient will be initiated with a HEP - MET Short Term Goal 2: Patient will tolerate exercise without increased pain or symptoms. - NOT MET Shelter Goals Time Frame for Shelter Goals : 5 weeks Shelter Goal 1: Patient will be independent and compliant with a HEP Shelter Goal 2: Patient will improve bilateral ankle dorsiflexion ROM to >7* for ambulation. MET- 12 degrees left DF Shelter Goal 3: Patient will improve L ankle strength to >/= 4/5 in all planes to improve stability with ambulation. Shelter Goal 4: Patient will be able to hold SLS for 30 seconds without LOB Shelter Goal 5: Patient will report 70% improvement in overall symptoms and function. Minutes Tracking: Time In: 1414 Time Out: 1450 Minutes: 36 Alanna Chappell PTA Date: 04/22/2025 Cosigned by Olivia Nam, PT at 04/22/2025 3:01 PM EDT documented in this encounterBon [facility] History of Present illness Narrative* Swapna Prado RN - 04/18/2025 3:00 PM EDT Allergy injection flow sheet Identification of own vial of serum Delayed reaction URI with or without wheezing Time of injection Discharge time Yes No No [id number] Injection Schedule Concentration Dose Location Vial Expiration Date Reviewed Blue vial A 0.2 ml LA yes Blue vial B 0.2 ML RA yes Injection given by: Swapna prado RN Injection site checked upon discharge by: Swapna Prado RN Comments: no local Reminder: document all injections in the allergy binder. [facility] Discharge instructions* Discharge Instructions* Swapna Prado RN - 04/18/2025 3:00 PM EDT Verbally reviewed discharge instructions for care and follow up. Previous print out of these instructions were given with prior treatment.Patient verbalized understanding of these instructions. Today's copy offered and declined. documented in this encounterCar[facility] History of Present illness Narrative* Olivia Nam, PT - 04/18/2025 2:00 PM EDT [facility] Outpatient Physical Therapy Daily Note Patient: Virgil Warner : 1975 CSN #: [id number] Referring Physician: Meera Mike DPM Date: 04/18/2025 Treatment Diagnosis: s/p L Lisfranc injury with beam placement, L foot pain Onset Date: 07/13/24 PT Insurance Information: Medical [employer] Total # of Visits Approved: 10 Per Physician Order Total # of Visits to Date: 6 No Show: 0 Canceled Appointment: 0 05/10/25 Plan of Care/Recert Due Pre-Treatment Pain: 0/10 Subjective: The patient reports her foot and ankle are feeling ok. She reports her stomach has beenbothering her today so she's laid on the couch so far today. Exercises: Exercise 4: Amb drills: march x1 gym length, side stepping x1/2 gym length ea direction, 4 forward steps/2 retro steps x1 gym length Exercise 5: YTB inversion 2x10, YTB eversion 2x10 Exercise 7: standing slantboard 3 x 30 seconds each gastroc/soleus Exercise 10: Seated HR 15# KB x15 / seated TR x15 Exercise 11: Scitfit L1 x 10 minutes Exercise 13: FSU 10x eac leg 6 Manual: Soft Tissue Mobilizaton: Heated thermoprobe massage to L medial gastroc and tibialis posterior Assessment Body Structures, Functions, Activity Limitations Requiring Skilled Therapeutic Intervention: Decreased functional mobility , Decreased ADL status, Decreased ROM, Decreased strength, Decreased endurance, Decreased balance, Decreased high- level IADLs, Increased pain Assessment: 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 Patient demonstrates poor balance bilaterally with dynamic ambulation drills. She reported bilateral calf tightness and cramping throughout the tx session. Heated thermoprobe massage to medial gastroc and tibialis posterior to decrease pain and muscular tension. She was encouraged to begin a walking program starting with a couple of minutes of walking and increasing every 2-3 days. Activity Tolerance Activity Tolerance: Patient limited by pain Patient Education Patient Education: Progression of exercise Pt verbalized/demonstrated good understanding: [x] Yes [] No, pt required further clarification. Post Treatment Pain: 01/03 Plan Plan Frequency: 2 Plan weeks: 5 Goals (Total # of Visits to Date: 6) Short Term Goals Time Frame for Short Term Goals: 3 weeks Short Term Goal 1: Patient will be initiated with a HEP - MET Short Term Goal 2: Patient will tolerate exercise without increased pain or symptoms. - NOT MET Vineyard Tender Goals Time Frame for Shelter Goals : 5 weeks Vineyard Tender Goal 1: Patient will be independent and compliant with a HEP Shelter Goal 2: Patient will improve bilateral ankle dorsiflexion ROM to >7* for ambulation. MET- 12 degrees left DF Vineyard Tender Goal 3: Patient will improve L ankle strength to >/= 4/5 in all planes to improve stability with ambulation. Vineyard Tender Goal 4: Patient will be able to hold SLS for 30 seconds without LOB Shelter Goal 5: Patient will report 70% improvement in overall symptoms and function. Minutes Tracking: Time In: 1402 Time Out: 1447 Minutes: 45 Timed Code Treatment Minutes: 43 Minutes Olivia Nam, PT, DPT, OCS, Cert. DN Date: 04/18/2025 documented in this encounterCar[facility]07[facility]2025 [facility] Discharge instructions* Discharge Instructions* Kelly Boston RN - 04/15/2025 3:14 PM EDT Verbally reviewed discharge instructions for care and follow up. Previous print out of these instructions were given with prior treatment.Patient verbalized understanding of these instructions. Today's copy offered and declined. documented in this [facility]Car[facility] History of Present illness Narrative* Kelly Boston RN - 04/15/2025 3:00 PM EDT Allergy injection flow sheet Identification of own vial of serum Delayed reaction URI with or without wheezing Time of injection Discharge time Yes No No [id number] Injection Schedule Concentration Dose Location Vial Expiration Date Reviewed Blue Vial A 0.1 ml Left arm yes Blue Vial B 0.1 ml Right arm yes Injection given by: Mark Boston RN Injection site checked upon discharge by: Mark Boston RN Comments: no local Reminder: document all injections in the allergy binder. documented in this [facility] Hospital Discharge instructions* Discharge Instructions* Vanna Laws RN - 04/11/2025 3:25 PM EDT Outpatient Discharge Instructions for Allergy Injections [address] [id number] Activity: Avoid strenuous activity or exercise for at least one hour after an injection, to preventrapid absorption of the medication. Care of Injection Site: Observe site for signs of redness or swelling. And report these observations to the nurse at your next visit. Do not rub the injection site. For symptomatic relief of a local reaction: ice may be applied to the site, to decrease discomfort and to minimize swelling. 1% hydrocortisone cream may be applied to the site to decrease itching. In the event of a systemic reaction (increased shortness of breath or tightening of the chest or throat, wheezing) Use the Epipen as directed by your physician And call 911 - Do not drive yourself to the hospital! Prescriptions: Take all antihistamines as prescribed by your physician. Warning: Beta Blockers: Beta Blockers should not be used in patients receiving allergy injections. Inform your allergy physicians office if you are on immunotherapy and are started on a beta unique. (examples: Betapace, blocadren, Cartrol, Inderal, Kerlone, Levatol, Lopressor, Sectral, tenormin, Metoprolol, Visken, Zebeta, Ziac. You will not be able to get your shots if you have a fever, chills, wheezing, tightness in the chest or if you are coughing up phlegm. Please call if you have any of these symptoms and reschedule your appointment. ANY PROBLEMS AND OR CONCERNS FOLLOW UP WITH YOUR DOCTOR OR GO TO THE NEAREST EMERGENCY ROOM. Comments: documented in this encounterCar[facility]07-[facility]25 History of Present illness Narrative* Vanna Laws RN - 04/11/2025 3:00 PM EDT Allergy injection flow sheet Identification of own vial of serum Delayed reaction URI with or without wheezing Time of injection Discharge time Yes No No [id number] Injection Schedule Concentration Dose Location Vial Expiration Date Reviewed Blue A 0.05ml Left arm yes Blue B 0.05ml Right arm yes Injection given by: GABRIEL CARLOS Injection site checked upon discharge by: GABRIEL CARLOS Comments: no local Reminder: document all injections in the allergy binder. documented in this encounterCar[facility] History of Present illness Narrative* Alanna Chappell PTA - 04/11/2025 2:15 PM EDT [facility] Outpatient Physical Therapy Daily Note Patient: Virgil Warner : 1975 [facility] #: [id number] Referring Physician: Meera Mike DPM Date: 04/11/2025 Treatment Diagnosis: s/p L Lisfranc injury with beam placement, L foot pain Onset Date: 07/13/24 PT Insurance Information: Medical [employer] Total # of Visits Approved: 10 Per Physician Order Total # of Visits to Date: 4 No Show: 0 Canceled Appointment: 0 05/10/25 Plan of Care/Recert Due Pre-Treatment Pain: -/10 Subjective: Pt did not report pain this date, increased soreness due to ambulation with tennis shoes in community. Exercises: Exercise 5: 4-way ankle YTB x15 ea // iso DF with BTB 3x15 ea Exercise 6: rockerboard 3 way with focus on motion of ankle x20 Exercise 7: standing slantboard 3 x 30 seconds each gastroc/soleus Exercise 10: Seated HR / TR with hold 3 sec x15 Exercise 11: Scitfit L1 x 10 minutes Exercise 13: FSU 10x eac leg 6 Assessment Assessment: Pt with increased soreness this date. Continued with ankle strengthening with good tolerance noted. Added 4-way ankle and iso DF with reports of difficulty with ER movement. Pt needing toleave appointment early due to having another appointment upstairs. Will continue to progress as tolerated. Activity Tolerance Activity Tolerance: Patient tolerated treatment well Patient Education Patient Education: Progression of exercise Pt verbalized/demonstrated good understanding: [x] Yes [] No, pt required further clarification. Post Treatment Pain: -/10 Plan Plan Frequency: 2 Plan weeks: 5 Goals (Total # of Visits to Date: 4) Short Term Goals Time Frame for Short Term Goals: 3 weeks Short Term Goal 1: Patient will be initiated with a HEP - MET Short Term Goal 2: Patient will tolerate exercise without increased pain or symptoms. - NOT MET Vineyard Tender Goals Time Frame for Vineyard Tender Goals : 5 weeks Vineyard Tender Goal 1: Patient will be independent and compliant with a HEP Vineyard Tender Goal 2: Patient will improve bilateral ankle dorsiflexion ROM to >7* for ambulation. MET- 12 degrees left DF Vineyard Tender Goal 3: Patient will improve L ankle strength to >/= 4/5 in all planes to improve stability with ambulation. Shelter Goal 4: Patient will be able to hold SLS for 30 seconds without LOB Vineyard Tender Goal 5: Patient will report 70% improvement in overall symptoms and function. Minutes Tracking: Time In: 1415 Time Out: 1450 Minutes: 35 Alanna Chappell PTA Date: 04/11/2025 Cosigned by Olivia Nam, PT at 04/11/2025 3:10 PM EDT documented in this encounterCar[facility]05-06-[facility] History of Present illness Narrative* Karrie Valadez - 01/29/2025 10:45 AM EDT [facility] Inpatient/Observation/Outpatient Rehabilitation Date: 01/29/2025 Patient Name: Virgil Warner [] Inpatient Acute/Observation [x] Outpatient : [...] does not require skilled services due to: Therapist/Teaching Specialists will attempt to see this patient, at our earliest opportunity. Karrie Valadez Date: 01/29/2025 Cosigned by Olivia Block, PT at 01/29/2025 8:19 AM EDT documented in this encounterCar[facility]04-29-2025 History of Present illness Narrative* Karrie Valadez - 01/22/2025 11:30 AM EDT [facility] Inpatient/Observation/Outpatient Rehabilitation Date: 01/22/2025 Patient Name: Virgil Warner [] Inpatient Acute/Observation [x] Outpatient : [...] does not require skilled services due to: Therapist/Teaching Specialists will attempt to see this patient, at our earliest opportunity. Karrie Valadez Date: 01/22/2025 Cosigned by Hussein Rich PTA at 01/22/2025 7:40 AM EDT * Karrie Valadez - 01/22/2025 11:30 AM EDT [facility] Inpatient/Observation/Outpatient Rehabilitation Date: 01/24/2025 Patient Name: Virgil Warner [] Inpatient Acute/Observation [x] Outpatient : [...] does not require skilled services due to: Therapist/Teaching Specialists will attempt to see this patient, at our earliest opportunity. Karrie Valadez Date: 01/24/2025 Cosigned by Alanna Chappell PTA at 01/24/2025 9:24 AM EDT documented in this encounterBon [facility]04-[facility] History of Present illness Narrative* Makayla Lozoya PTA - 01/17/2025 2:45 PM EDT Physical Therapy [facility] Outpatient Physical Therapy Daily Note Patient: Virgil Warner : 1975 CSN #: [id number] Referring Physician: Meera Mike DPM Date: 01/17/2025 Treatment Diagnosis: s/p L Lisfranc injury with beam placement, L foot pain Onset Date: 07/13/24 PT Insurance Information: Medical [employer] Total # of Visits Approved: 22 Per [...] width and using SP cane for improving balanceand focusing on correcting gait deviations. Pt limited [...] tolerate exercise without increased pain or symptoms.-met Shelter Goals Time Frame for Vineyard Tender Goals : 6 weeks Vineyard Tender Goal 1: Patient will be independent and compliant with a HEP - progressing Vineyard Tender Goal 2: Patient will improve bilateral ankle dorsiflexion ROM to >7* for ambulation. MET- 10 degrees left DF (01/08/2025) Vineyard Tender Goal 3: Patient will improve L ankle strength to >/= 4/5 in all planes to improve stability with ambulation. progressing (01/08/2025) left DF: 4/5, PF: 4/5:,Inv 4/5:, Evr: 4-/5, pain withplanterflexion and eversion Shelter Goal 4: Patient will be able to hold SLS for 30 seconds without LOB: unable to fully WB on LLE due to instability - not able to attempt yet at this time Shelter Goal 5: Patient will report 70% improvement in overall symptoms and function. Minutes Tracking: Time In: 1446 Time Out: 1531 Minutes: 45 Timed Code Treatment Minutes: 43 Minutes Makayla Lozoya PTA Date: 01/17/2025 Cosigned by Olivia Nam, PT at 01/17/2025 4:34 PM EDT documented in this encounterBon [facility]04[facility] History of Present illness Narrative* Karrie Valadez - 01/14/2025 12:15 PM EDT [facility] Inpatient/Observation/Outpatient Rehabilitation Date: 01/14/2025 Patient Name: Virgil Warner [] Inpatient Acute/Observation [x] Outpatient : [...] does not require skilled services due to: Therapist/Teaching Specialists will attempt to see this patient, at our earliest opportunity. Karrie Valadez Date: 01/14/2025 Cosigned by Makayla Lozoya PTA at 01/14/2025 8:36 AM EDT documented in this encounterBon [facility]04[facility] History of Present illness Narrative* Hussein Rich PTA - 01/08/2025 2:30 PM EDT Physical Therapy [facility] Outpatient Physical Therapy Daily Note Patient: Virgil Warner : 1975 CSN #: [id number] Referring Physician: Meera Mike DPM Date: 01/08/2025 Treatment Diagnosis: s/p L Lisfranc injury with beam placement, L foot pain Onset Date: 07/13/24 PT Insurance Information: Medical [employer] Total # of Visits Approved: 12 Per Physician Order Total # of Visits to Date: 10 No Show: 0 Canceled Appointment: 1 01/11/25 Plan of Care/Recert Due Pre-Treatment Pain: 8/10 Subjective: Reports pain in right ankle and knee 8/10, reports more pain today. Unsure of why [...] HS curls 15x BLEs // mini squats v15--amvw shoe donned1 UE support Exercise 11: seated heel slides [...] Decreased strength, Decreased endurance, Decreased balance, Decreased high- level IADLs, Increased pain Assessment: Ther ex completed with focus on left ankle strength and stability to improve functionalmobility for ADLS. Notable instaiblity in left ankle [...] functional strength and stability. UPOC completed by Olivia Morales PT. Activity Tolerance Activity Tolerance: Patient [...] tolerate exercise without increased pain or symptoms.-met Vineyard Tender Goals Time Frame for Shelter Goals : 6 weeks Vineyard Tender Goal 1: Patient will be independent and compliant with a HEP Shelter Goal 2: Patient will improve bilateral ankle dorsiflexion ROM to >7* for ambulation. MET- 10 degrees left DF (01/08/2025) Vineyard Tender Goal 3: Patient will improve L ankle strength to >/= 4/5 in all planes to improve stability with ambulation. progressing (01/08/2025) left DF: 4/5, PF: 4/5:,Inv 4/5:, Evr: 4-/5, pain withplanterflexion and eversion Shelter Goal 4: Patient will be able to hold SLS for 30 seconds without LOB: unable to fully WB on LLE due to instability [facility]yard Tender Goal 5: Patient will report 70% improvement in overall symptoms and function. Minutes Tracking: Time In: 1432 Time Out: 1512 Minutes: 40 Timed Code Treatment Minutes: 40 Minutes Hussein Rich PTA Date: 01/08/2025 Cosigned by Olivia Nam, PT at 01/08/2025 3:24 PM EDT documented in this encounterBon [facility] History of Present illness Narrative* Alanna Chappell PTA - 12/31/2024 12:45 PM EDT [facility] Outpatient Physical Therapy Daily Note Patient: Virgil Warner : 1975 CSN #: [id number] Referring Physician: Meera Mike DPM Date: 12/31/2024 Treatment Diagnosis: s/p L Lisfranc injury with beam placement, L foot pain Onset Date: 07/13/24 PT Insurance Information: Medical [employer] Total # of Visits Approved: 12 Per [...] HS curls 15x BLEs // mini squats t97--emwj shoe donned Exercise 11: seated heel slides [...] tolerate exercise without increased pain or symptoms.-met Shelter Goals Time Frame for Shelter Goals : 6 weeks Vineyard Tender Goal 1: Patient will be independent and compliant with a HEP Shelter Goal 2: Patient will improve bilateral ankle dorsiflexion ROM to >7* for ambulation. MET- 10 degrees left DF this date after manual (12/19/2024) Vineyard Tender Goal 3: Patient will improve L ankle strength to >/= 4/5 in all planes to improve stability with ambulation. Vineyard Tender Goal 4: Patient will be able to hold SLS for 30 seconds without LOB [facility]yard Tender Goal 5: Patient will report 70% improvement in overall symptoms and function. Minutes Tracking: Time In: 1245 Time Out: 1330 Minutes: 45 Alanna Chappell PTA Date: 12/31/2024 Cosigned by Olivia Nam, PT at 12/31/2024 6:53 PM EDT documented in this encounterBon [facility]03[facility] History of Present illness Narrative* Alanna Chappell PTA - 12/24/2024 12:45 PM EDT [facility] Outpatient Physical Therapy Daily Note Patient: Virgil Warner : 1975 CSN #: [id number] Referring Physician: Meera Mike DPM Date: 12/24/2024 Treatment Diagnosis: s/p L Lisfranc injury with beam placement, L foot pain Onset Date: 07/13/24 PT Insurance Information: Medical [employer] Total # of Visits Approved: 12 Per [...] Exercise 9: Seated LAQ, adduction, HS curl standing rock tband 15x ea, marching 15x Exercise 10: [...] pt required further clarification. Post Treatment Pain: 6-04/04 Plan Plan Frequency: 2 Plan weeks: 6 Goals (Total # of Visits to Date: 7) Short Term Goals Time Frame for Short Term Goals: 3 weeks Short Term Goal 1: Patient will be initiated with a HEP -MET Short Term Goal 2: Patient will tolerate exercise without increased pain or symptoms.-Progressing Vineyard Tender Goals Time Frame for Vineyard Tender Goals : 6 weeks Vineyard Tender Goal 1: Patient will be independent and compliant with a HEP Vineyard Tender Goal 2: Patient will improve bilateral ankle dorsiflexion ROM to >7* for ambulation. MET- 10 degrees left DF this date after manual (12/19/2024) Vineyard Tender Goal 3: Patient will improve L ankle strength to >/= 4/5 in all planes to improve stability with ambulation. Vineyard Tender Goal 4: Patient will be able to hold SLS for 30 seconds without LOB Shelter Goal 5: Patient will report 70% improvement in overall symptoms and function. Minutes Tracking: Time In: 1245 Time Out: 1330 Minutes: 45 Alanna Chappell PTA Date: 12/24/2024 Cosigned by Olivia Nam, PT at 12/24/2024 7:25 PM EDT documented in this encounterBon [facility]03[facility] History of Present illness Narrative* Hussein Rich PTA - 12/19/2024 1:45 PM EDT Physical Therapy [facility] Outpatient Physical Therapy Daily Note Patient: Virgil Warner : 1975 CSN #: [id number] Referring Physician: Meera Mike DPM Date: 12/19/2024 Treatment Diagnosis: s/p L Lisfranc injury with beam placement, L foot pain Onset Date: 07/13/24 PT Insurance Information: Medical [employer] Total # of Visits Approved: 12 Per Physician Order Total # of Visits to Date: 6 No Show: 0 Canceled Appointment: 1 01/11/25 Plan of Care/Recert Due Pre-Treatment Pain: 02/02 Subjective: Pt reports less pain in ankle today, reports cramping in back of ankle near achilles tendon. Reports less knee pain -02/02. reports she wears slippers at home, does [...] Exercise 9: Seated LAQ, adduction, HS curl standing rock tband 10x ea, marching 15x Exercise 10: [...] Decreased strength, Decreased endurance, Decreased balance, Decreased high- level IADLs, Increased pain Assessment: Added seated heel [...] tolerate exercise without increased pain or symptoms.-Progressing Shelter Goals Time Frame for Vineyard Tender Goals : 6 weeks Vineyard Tender Goal 1: Patient will be independent and compliant with a HEP Shelter Goal 2: Patient will improve bilateral ankle dorsiflexion ROM to >7* for ambulation. MET- 10 degrees left DF this date after manual (12/19/2024) Vineyard Tender Goal 3: Patient will improve L ankle strength to >/= 4/5 in all planes to improve stability with ambulation. Vineyard Tender Goal 4: Patient will be able to hold SLS for 30 seconds without LOB Vineyard Tender Goal 5: Patient will report 70% improvement in overall symptoms and function. Minutes Tracking: Time In: 1338 Time Out: 1439 Minutes: 61 Timed Code Treatment Minutes: 61 Minutes Hussein Rich PTA Date: 12/19/2024 Cosigned by Sonia Baum, PT at 12/19/2024 3:21 PM EDT documented in this encounterBon [facility] History of Present illness Narrative* ImperialMaxim - 12/17/2024 12:45 PM EDT Physical Therapy [facility] Inpatient/Observation/Outpatient Rehabilitation Date: 12/17/2024 Patient Name: Virgil Warner [] Inpatient Acute/Observation [x] Outpatient : [...] does not require skilled services due to: Therapist/Teaching Specialists will attempt to see this patient, at our earliest opportunity. Maxim Garcia Date: 12/17/2024 Cosigned by Alanna Chappell PTA at 12/17/2024 8:50 AM EDT documented in this encounterBon [facility] History of Present illness Narrative* Makayla Lozoya PTA - 12/05/2024 2:30 PM EDT Physical Therapy [facility] Outpatient Physical Therapy Daily Note Patient: Virgil Warner : 1975 CSN #: [id number] Referring Physician: Meera Mike DPM Date: 12/05/2024 Treatment Diagnosis: s/p L Lisfranc injury with beam placement, L foot pain Onset Date: 07/13/24 PT Insurance Information: Medical [employer] Total # of Visits Approved: 12 Per [...] reduce hip rotation compensations. Attempted gentle Weight shiftsin standing this date, pt limited d/t pain in knee joint. Activity Tolerance Activity Tolerance: Patient tolerated treatment well, Patient limited by pain Patient Education Patient Education: Educated pt to continue use of cam boot with ambulation d/t lack of ankle stability/strength. Pt verbalized/demonstrated good understanding: [x] Yes [] No, pt required further clarification. Post Treatment Pain: 05/05 Plan Plan Frequency: 2 Plan weeks: 6 Goals (Total # of Visits to Date: 3) Short Term Goals Time Frame for Short Term Goals: 3 weeks Short Term Goal 1: Patient will be initiated with a HEP -MET Short Term Goal 2: Patient will tolerate exercise without increased pain or symptoms.-Progressing Shelter Goals Time Frame for Shelter Goals : 6 weeks Vineyard Tender Goal 1: Patient will be independent and compliant with a HEP Vineyard Tender Goal 2: Patient will improve bilateral ankle dorsiflexion ROM to >7* for ambulation. Vineyard Tender Goal 3: Patient will improve L ankle strength to >/= 4/5 in all planes to improve stability with ambulation. Vineyard Tender Goal 4: Patient will be able to hold SLS for 30 seconds without LOB Shelter Goal 5: Patient will report 70% improvement in overall symptoms and function. Minutes Tracking: Time In: 1432 Time Out: 1515 Minutes: 43 Timed Code Treatment Minutes: 40 Minutes Makayla Lozoya PTA Date: 12/05/2024 Cosigned by Olivia Nam, PT at 12/05/2024 7:38 PM EDT documented in this encounterBon [id number] History of Present illness Narrative* Makayla Lozoya GENERAL MERCHANDISE SALESPERSON - 12/03/2024 12:30 PM EDT Physical Therapy [facility] Outpatient Physical Therapy Daily Note Patient: Virgil Warner : 1975 CSN #: [id number] Referring Physician: Meera Mike DPM Date: 12/03/2024 Treatment Diagnosis: s/p L Lisfranc injury with beam placement, L foot pain Onset Date: 07/13/24 PT Insurance Information: Medical [employer] Total # of Visits Approved: 12 Per Physician Order Total # of Visits to Date: 2 No Show: 0 Canceled Appointment: 1 01/11/25 Plan of Care/Recert Due Pre-Treatment Pain: 5/ Subjective: Patient reports 5/10 pain in left [...] longsitting d/t increased pain with WBing. Pt arrivedto treatment wearing camboot and hinged knee brace. [...] Educated pt to wear cam boot with ambulationaround home with increased pain and decreased stabiltiy. [...] tolerate exercise without increased pain or symptoms.-Progressing Shelter Goals Time Frame for Vineyard Tender Goals : 6 weeks Shelter Goal 1: Patient will be independent and compliant with a HEP Shelter Goal 2: Patient will improve bilateral ankle dorsiflexion ROM to >7* for ambulation. Vineyard Tender Goal 3: Patient will improve L ankle strength to >/= 4/5 in all planes to improve stability with ambulation. Vineyard Tender Goal 4: Patient will be able to hold SLS for 30 seconds without LOB Shelter Goal 5: Patient will report 70% improvement in overall symptoms and function. Minutes Tracking: Time In: 1230 Time Out: 1316 Minutes: 46 Timed Code Treatment Minutes: 42 Minutes Makayla Lozoya PTA Date: 12/03/2024 Cosigned by Olivia Nam PT at 12/03/2024 1:41 PM EDT documented in this encounterBon [facility] History of Present illness Narrative* JoseMaxim - 11/29/2024 11:15 AM EST Physical Therapy [facility] Inpatient/Observation/Outpatient Rehabilitation Date: 11/29/2024 Patient Name: Virgil Warner [] Inpatient Acute/Observation [x] Outpatient : [...] does not require skilled services due to: Therapist/Teaching Specialists will attempt to see this patient, at our earliest opportunity. Maxim Garcia Date: 11/29/2024 Cosigned by Alanna Chappell PTA at 11/29/2024 8:47 AM EST documented in this encounterBon [facility] History of Present illness Narrative* Karrie Faith, OT - 09/15/2024 11:25 AM EST [facility] Occupational Therapy Evaluation Date: 09/15/24 Patient Name: Virgil Warner Room: Account: [id number] : 1975 (49 y.o.) Gender: female Discharge [...] O2 Device: None (Room air) Subjective Comments: BREANNA galan'katherine OT/PT eval with PT Melissa Pain [...] Entrance Stairs - Number of Steps: 3 BROOKE to porch, 1 threshold into house, has cement slabs on sideof steps has been proppin Bathroom Shower/Tub: Tub/Shower [...] Level of Assist for Transfers: Independent Active Inspector Bicycle: No Patient's Inspector Bicycle Info: spouse or dtr Mode of Transportation: [...] balance, pain, and activity tolerance, impacting independence andsafety with ADLs Hand Dominance Hand Dominance: Right [...] Description: Fine motor impairments, Decreased speed, Decreased accuracy,Right UE, Left UE Bed Mobility Bed mobility [...] Decreased functional mobility , Decreased ADL status, Decreasedbalance, Decreased fine motor control, Decreased coordination, Decreased posture, Decreased high-level IADLs Treatment Diagnosis: Impaired self-care status Prognosis: Good Decision Making: Medium Complexity Discharge Recommendations: Continue to assess pending progress Activity Tolerance Activity Tolerance: Patient Tolerated treatment well Safety Devices Type of Devices: All fall risk precautions in place, Call light within reach, Gait belt, Patient atrisk for falls, Left in bed, Nurse notified, [...] Demonstrated understanding, Verbalized understanding Functional Outcome Measures AM-PAC Daily Activity - Inpatient How much help [...] How much help for eating meals?: None AM-[facility] Inpatient Daily Activity Raw Score: 19 AM-[facility] Inpatient ADL T-Scale Score : 40.22 ADL [...] functional mobility/transfers with ANDRES, Good safety, and leastrestrictive device with full maintainence of NWB precautions [...] Minutes Timed Code Treatment Minutes: 11 Minutes * Melissa Ladd, PT - 09/15/2024 11:09 AM EST Physical Therapy [facility] Physical Therapy Evaluation Date: 09/15/24 Patient Name: Virgil Warner Room: Account: [id number] : 1975 (49 y.o.) Gender: female Discharge [...] Pertinent Hx: Per H & P note: Virgil Warner is a 49 y.o. female seen at [facility] for postoperative pain. Patient is admitted [...] up closely outpatient. Past medical history includes uncon trolled type 2 diabetes mellitus, smoker, neuropathy, obesity, fibromyalgia, RSD. Past medical history and pertinent history unable to be obtained patient is in the PACU area under anesthesia. She isnot in acute distress. Patient will be admitted for a 23-hour observation and likely discharge homewith outpatient follow-up. Response To Previous Treatment: Not applicable Family/Caregiver Present: No Referring Practitioner: Dr. Magalis Merino Referral Date : 09/14/24 Diagnosis: Charcot ankle left Follows Commands: Within Functional Limits Other (Comment): OK per nurse Alberto to proceed w/ PT evaluation General General [...] Entrance Stairs - Number of Steps: 3 BROOKE to porch, 1 threshold into house, has cement slabs on sideof steps has been proppin Bathroom Shower/Tub: Tub/Shower [...] Level of Assist for Transfers: Independent Active Inspector Bicycle: No Patient's Inspector Bicycle Info: spouse or dtr Mode of Transportation: [...] pt prefers to use bilateral walker hand poker prop player despite cues and bathroom rail and sink to sit down on the commode rather than grabbars on toilet- states she feels safer this [...] for transfers and gait w/ wheeled walker 10'x 2, maintains Left LE NWB well; fall [...] on the side of a flat bed withoutusing bedrails?: None How much help is needed moving to and from a bed to a chair?: A Little How much help is needed standing up from a chair using your arms?: A Little How much help is needed walking in hospital room?: A Little How much help is needed climbing 3-5 steps with a railing?: Total AM-[facility] Inpatient Mobility Raw Score : 18 AM-[facility] Inpatient T-Scale Score : 43.63 Mobility Inpatient CMS 0-100% Score: 46.58 Mobility Inpatient CMS G-Code Modifier : CK Goals Patient Goals [...] Call light within reach, Gait belt, Patient atrisk for falls, Left in bed, Nurse notified, Bed alarm in place (nurse Dominguez) PT Individual Minutes Time In: 858 Time Out: 928 Minutes: 30 Time Code Minutes Timed Code Treatment Minutes: 10 Minutes * Cheyenne Browning - 09/14/2024 5:28 PM EST CLINICAL PHARMACY NOTE: MEDS TO BEDS Total # of Prescriptions Filled: 2 The following medications were delivered to the patient: Hydrocodone/APAP 5/325mg Aspirin 325mg Additional Documentation: 09/14/24 5:06pm kbg delivered to pt room Nurse Jesse locked-up pt aware * Mecca Ward RN - 09/14/2024 7:04 AM EST Pre op blood sugar 280 documented in this encounterBon [facility] Hospital Discharge instructions* Discharge Instructions* Angely Martínez RN - 09/15/2024 7:14 AM [...] Mike in their office in 1 week * Discharge Instr - SHAR* Ed Mello DPM - 09/15/2024 7:13 AM EST Continuity of Care Form Patient Name: Virgil Warner : 1975 Admit date: 09/14/2024 Discharge date: 09/16/2024 Code Status Order: Full Code Advance Directives: Advance Care Flowsheet Documentation Date/Time Healthcare Directive Type of Healthcare Directive Copy in Chart Healthcare Agent Appointed Healthcare Agent's Name Healthcare Agent's Phone Number 09/14/24 0567 Yes, patient has an advance directive for healthcare treatment Durable power of internet sales manager for health care;Living will Yes, copy in chart -- -- -- Admitting Physician: Meera Mike DPM PCP: Vivian Lemos APRN - [place] Discharging Nurse: Discharging Hospital Unit/Room#: 2049/9-01 Discharging Unit Phone Number: Emergency Contact: Extended Emergency Contact Information Primary Emergency Contact: Yoel Warner Address: [address] [place] [phone] Mobile Relation: Spouse Past Surgical History: Past Surgical History: Procedure Laterality Date ANKLE SURGERY Left 07/23/2024 ANKLE EXTERNAL FIXATOR APPLICATION (ORTHOFIX) performed by Meera Mike DPM at [facility] OR BLADDER SUSPENSION CARDIAC CATHETERIZATION Left 12/31/2015 right radial / Dr. Vargas/ No stents COLONOSCOPY N/A 12/08/2022 COLONOSCOPY POLYPECTOMY SNARE/COLD BIOPSY performed by Tari Curtis MD at [facility] OR COLONOSCOPY 12/08/2022 -polyps(hyperplastic)tortuous colon CYSTOSCOPY Left with stent FOOT CLOSED REDUCTION Left 07/23/2024 FOOT CLOSED REDUCTION PINNING performed by Meera Mike DPM at [facility] OR FOOT SURGERY Left 09/14/2024 REMOVE EXTERNAL FIXATOR LEFT FOOT performed by Meera Mike DPM at [facility] OR FOOT SURGERY Left 09/14/2024 SUBTALAR JOINT FUSION FUSION MIDFOOT MULTIPLE JOINTS LEFT FOOT performed by Meera Mike DPMat [facility] OR HYSTERECTOMY (CERVIX STATUS UNKNOWN) KIDNEY SURGERY [...] Immunization History Administered Date(s) Administered Influenza A (Y1D8-04) Vaccine PF IM 08/29/2009 Influenza Virus Vaccine [...] Pain in upper limb M79.603 Diabetic neuropathy (HCC) E11.40 Fibromyalgia M79.7 Depression F32.A Controlled type 2 diabetes mellitus with diabetic polyneuropathy, with long-term current use of insulin ([facility]) E11.42, Z79.4 Ureteric calculus N20.1 Gross hematuria R31.0 History of kidney stones Z87.442 Renal stones N20.0 Idiopathic acute pancreatitis K85.00 Hypertriglyceridemia E78.1 SIRS without infection with organ dysfunction ([facility]) R65.11 Generalized abdominal pain R10.84 Perirectal abscess K61.1 Tobacco abuse Z72.0 Essential hypertension I10 Dyslipidemia E78.5 Type 2 diabetes mellitus with hyperglycemia ([facility]) E11.65 Multiple joint pain M25.50 Abnormal LFTs [...] 2 diabetes mellitus with Charcot joint arthropathy ([facility]) E11.610 Charcot joint of left foot M14.672 Acquired posterior equinus, left M21.862 Post-op pain G89.18 Diabetes ([facility]) E11.9 Multiple closed fractures of metatarsal bone [...] MENTAL STATUS:} IV Access: { SHAR IV ACCESS:646748200} Nursing Mobility/ADLs: Walking {CHP DME ADLs:663945320} Transfer {CHP DME ADLs:059273025} Bathing {CHP DME ADLs:422606598} Dressing {CHP DME ADLs:178758845} Toileting {CHP DME ADLs:701224994} Feeding {CHP DME ADLs:381651035} Catering Sous Chef {P DME ADLs:983888959} Med Delivery { SHAR MED Delivery:083572466} Wound Care Documentation and Therapy: Incision 09/14/24 Foot Left (Active) Dressing Status Clean;Dry;Intact 09/14/241940 Dressing/Treatment Katlyn wrap 09/14/241940 Incision Assessment Other (Comment) 09/14/241940 Drainage Amount None (dry) 09/14/241940 Odor None 09/14/24 1305 Number of days: 0 Elimination: Continence: Bowel: {YES / NO:} Bladder: {YES / NO:} Urinary Catheter: {Urinary Catheter:408225234} Colostomy/Ileostomy/Ileal Conduit: {YES / NO:} Date of Last BM: Intake/Output Summary (Last 24 hours) at 09/15/2024 0712 Last data filed at 09/14/2024 1315 Gross per 24 hour Intake 1950 ml Output 550 ml Net 1400 ml I/O last 3 completed shifts: In: 1950 [I.V.:1950] Out: 550 [Urine:450; Blood:100] Safety Concerns: { SHAR Safety Concerns:143841117} Impairments/Disabilities: { SHAR Impairments/Disabilities:596115243} Nutrition Therapy: Current Nutrition Therapy: { SHAR Diet List:930861611} Routes of Feeding: {[facility] DME Other Feedings:558611655} Liquids: {Truck Service Manager liquid thickness:58346} Daily Fluid Restriction: {[facility] DME Yes amt example:617797650} Last Modified Barium Swallow with Video (Video Swallowing Test): {Done Not Done Date:} Treatments at the Time of Hospital Discharge: Respiratory Treatments: Oxygen Therapy: {Therapy; copd oxygen:65733} Ventilator: {[facility] Vent List:640240362} Rehab Therapies: {THERAPEUTIC INTERVENTION:4783308271} Weight Bearing Status/Restrictions: {[facility] Weight Bearin} Other Medical Equipment (for information only, NOT a DME order): {EQUIPMENT:226444512} Other Treatments: Patient's personal belongings (please select all that are sent with patient): {[facility] DME Belongings:857600358} RN SIGNATURE: {Esignature:635051987} CASE MANAGEMENT/SOCIAL WORK SECTION Inpatient Status Date: Readmission Risk Assessment Score: [facility] RISK OF UNPLANNED READMISSION 2.0 0 Total Score Discharging to Facility/ Agency Name: Address: Phone: Fax: Dialysis Facility (if applicable) Name: Address: Dialysis Schedule: Phone: Fax: Auto Inspection Specialist/Communications Professor signature: {Esignature:397695875} PHYSICIAN SECTION Prognosis: Fair Condition at Discharge: Stable Rehab Potential (if transferring to Rehab): {Prognosis:8267291353} Recommended Labs or Other Treatments After Discharge: [...] certify the above information and transfer of Virgil Warner is necessary for the continuing treatment of the diagnosis listed and that she requires {Admit to AppropriateLevel of Care:55513} for {GREATER/LESS:343669627} 30 days. Update Admission H&P: No change in H&P PHYSICIAN SIGNATURE: Meera Mike DPM * Attachments The following attachments cannot be sent through Care Everywhere. * doxycycline (oral/injection) (Ivorian) * hydrocodone (oral) (Ivorian) documented in this encounterBon [facility] Hospital Discharge instructions* Discharge Instructions* Geno Douglas RN - 09/07/2024 12:14 PM [...] powder, deodorant, jewelry, piercings, perfume, makeup, nail greenlandic, hair accessories, or hair spray on the day of surgery. Wear loose comfortable clothing. Leave your valuables at home but bring a payment source for any after-surgery prescriptions you plan to fill at [facility]. Bring a storage case for any glasses/contacts. An adult who is responsible for you MUST drive you home and should be with you for the first 24 hours after surgery. If having out-patient knee and foot surgeries, please arrange for planned crutches, walker, or wheelchair before arriving to the hospital. The Day of Surgery: Arrive at [facility] Surgery Entrance at the time directed by your surgeon and check in at the desk. If you have a living will or healthcare power of internet sales manager, please bring a copy. You will be taken to the pre-op holding area where you will be prepared for surgery. A physical assessment will be performed by a nurse practitioner or house detective. Your IV will be started and you will meet your anesthesiologist. When you go to surgery, your family will be directed to the surgical waiting room, where the doctorshould speak with them after your surgery. After surgery, you will be taken to the recovery area. When you are alert and stable, you will receive instructions and be prepared for discharge. If you use a Bi-PAP or C-PAP machine, please bring it with you and leave it in the car in case it is needed in recovery room. documented in this encounterBon [facility] History of Present illness Narrative* Maxim Giordano - 07/26/2024 4:11 PM EDT CLINICAL PHARMACY NOTE: MEDS TO BEDS Total # of Prescriptions Filled: 3 The following medications were delivered to the patient: Acetaminophen 500MG Tablets Oxycodone/APAP 5-325MG Tablets Doxycycline Hyclate 100MG Tablets Additional Documentation: Delivered to the room and signed for by the PT - nurse present. 3:58PM 07/26/24 * Aria Del Toro - 07/26/2024 3:20 PM EDT 07/26/24 1520 Encounter Summary Encounter Overview/Reason Volunteer Encounter Service Provided For Patient Last Encounter 07/26/24 Assessment/Intervention/Outcome Intervention Prayer (assurance of)/[place] * Aria Del Toro - 07/25/2024 3:24 PM EDT 07/25/24 1523 Encounter Summary Encounter Overview/Reason Volunteer Encounter Service Provided For Patient Last Encounter 07/25/24 Assessment/Intervention/Outcome Intervention Prayer (assurance of)/[place] * Laurie Coronado PTA - 07/25/2024 11:40 AM EDT Rehabilitation Physical Therapy Date: 07/25/2024 Patient Name: Virgil Warner Room: : 1975 (49 y.o.) Gender: [...] snee scooter mod-I household distances and mobility AM-PAC Basic Mobility - Inpatient How much help is needed turning from your back to your side while in a flat bed without using bedrails?: None How much help is needed moving from lying on your back to sitting on the side of a flat bed withoutusing bedrails?: None How much help is needed moving to and from a bed to a chair?: A Little How much help is needed standing up from a chair using your arms?: A Little How much help is needed walking in hospital room?: A Little How much help is needed climbing 3-5 steps with a railing?: A Lot AM-PAC Inpatient Mobility Raw Score : 19 AM-[facility] Inpatient T-Scale Score : 45.44 Mobility Inpatient CMS 0-100% Score: 41.77 Mobility Inpatient CMS G-Code Modifier : CK PT Individual Minutes Time In: 1115 Time Out: 1138 Minutes: 23 * Meera Mike, DPM - 07/25/2024 10:26 AM EDT Images from the original note were [...] rates pain 7/10 this morning but states itgot up to 10/10 last night Updated Labs: WBC: Lab Results Component Value Date WBC 10.2 07/25/2024 ESR: Lab Results Component Value Date SEDRATE 25 07/24/2024 CRP: Lab Results Component Value Date CRP 2.8 12/28/2019 HPI : Virgil Warner is a 49 y.o. female seen at [facility] for postoperative abdomen after application of a multiplanar external fixator, percutaneous foot excision tarsal fracture, consider lengthening, no close treatment tarsometatarsal dislocation on 07-15-2024. Patient had injury to left lower e xtremity incidentally after walking where she was seen in [facility] almost 2 weeks ago. She followed [...] sodium chloride, potassium chloride OR potassium alternative oralreplacement OR potassium chloride, magnesium sulfate, ondansetron OR [...] found for the last 336 hours. Assessment Virgil Warner is a 49 y.o. female with [...] on 07/25/2024 at 3:36 PM Board Certified, [place] [employer] Fellow, [employer] * Patty Romo, OT - 07/24/2024 12:14 PM EDT [facility] Occupational Therapy Evaluation Date: 07/24/24 Patient Name: Virgil Warner Room: Account: [id number] : 1975 (49 y.o.) Gender: female Discharge [...] Entrance Stairs - Number of Steps: 3 BROOKE to porch, 1 threshold into house, has cement slabs on sideof steps has been proppin Bathroom Shower/Tub: Tub/Shower [...] (prior to injury, independent with cooking . assistwith laundry due to in basement) Homemaking Responsibilities: Yes Ambulation Assistance: Independent (since injury has been utilizing knee scooter,) Transfer Assistance: Independent Active Inspector Bicycle: Yes Mode of Transportation: Car Occupation: Unemployed [...] don R socks while seated EOB, assistance withthreading pullup brief over L external fixator while seated on toilet, CGA for safety with clothingmanagement, while maintaining NWB L LE Toileting: Minimal [...] Decreased ADL status, Decreased functional mobility , Decreasedstrength, Decreased balance, Decreased high-level IADLs Treatment Diagnosis: [...] understanding, Continued education needed Functional Outcome Measures AM-[facility] Daily Activity - Inpatient How much help [...] How much help for eating meals?: None AM-[facility] Inpatient Daily Activity Raw Score: 19 AM-[facility] Inpatient ADL T-Scale Score : 40.22 ADL [...] in 15+ min of therapeutic exercise/functional activity toincrease independence with selfcare tasks Short Term Goal 6: patient to verbalize/demonstrate good understanding of adaptive strategies/AE/DME, home safety strategies and NWB precautions to increase independence with selfcare tasks Short Term Goal 7: Pt will identify 2 non-pharmacological pain relief techniques during self-care tasks. Plan Occupational Therapy Plan Times Per Week: 5-7 Current Treatment Recommendations: Functional mobility training, Endurance training, Strengthening,Balance training, Safety education & training, Patient/Caregiver education & training, Equipment evaluation, education, & procurement, Pain management OT Individual Minutes OT Individual Minutes Time In: 56 Time Out: 44 Minutes: 48 Time Code Minutes Timed Code Treatment Minutes: 33 Minutes * Tricia Gordon, PT - 07/24/2024 10:39 AM EDT Physical Therapy Facility/Department: [facility] Physical Therapy Initial Assessment Name: Virgil Warner : 1975 Date of Service: 07/24/2024 [...] Entrance Stairs - Number of Steps: 3 BROOKE to porch, 1 threshold into house, has cement slabs on sideof steps has been proppin Bathroom Shower/Tub: Tub/Shower [...] (prior to injury, independent with cooking . assistwith laundry due to in basement) Homemaking Responsibilities: Yes Ambulation Assistance: Independent (since injury has been utilizing knee scooter,) Transfer Assistance: Independent Active Inspector Bicycle: Yes Mode of Transportation: Car Occupation: Unemployed [...] Standing - Dynamic: Fair (CGA with RW) AM-PAC - Mobility AM-PAC Basic Mobility - Inpatient How much help is needed turning from your back to your side while in a flat bed without using bedrails?: A Little How much help is needed moving from lying on your back to sitting on the side of a flat bed withoutusing bedrails?: A Little How much help is needed moving to and from a bed to a chair?: A Little How much help is needed standing up from a chair using your arms?: A Little How much help is needed walking in hospital room?: A Little How much help is needed climbing 3-5 steps with a railing?: A Lot [facility] Inpatient Mobility [facility] : [facility] T-Scale Score : 42.13 Mobility [...] Timed Code Treatment Minutes: 24 Minutes Tricia Gordon, PT * Meera Mike DPM - 07/24/2024 9:47 AM EDT Images from the original note were [...] Value Date CRP 2.8 12/28/2019 HPI : Virgil Warner is a 49 y.o. female seen at [facility] for postoperative abdomen after application of a multiplanar external fixator, percutaneous foot excision tarsal fracture, consider lengthening, no close treatment tarsometatarsal dislocation on 07-15-2024. Patient had injury to left lower e xtremity incidentally after walking where she was seen in [place] [facility] almost 2 weeks ago. She followed [...] sodium chloride sodium chloride 75 mL/hr at 07/23/241913 dextrose PRN Meds:sodium chloride flush, sodium chloride, potassium chloride OR potassium alternative oral replacement OR potassium chloride, magnesium sulfate, ondansetron OR ondansetron, polyethylene glycol, acetaminophen OR acetaminophen, povidone-iodine, morphine, oxyCODONE-acetaminophenOR oxyCODONE-acetaminophen, albuterol sulfate HFA, HYDROcodone-acetaminophen, glucose, dextrosebolus OR dextrose bolus, glucagon (rDNA), dextrose Objective [...] found for the last 336 hours. Assessment Virgil Warner is a 49 y.o. 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 Hospital course Narrative* Sreekanth Weber DPM - 07/26/2024 3:03 PM EDT Images from the original note were not included. Discharge Summary Podiatric Medicine and Surgery Patient Identification Virgil Warner is a 49 y.o. female : 1975 Acct: [id number] Admit date: 07/23/2024 Discharge date and time: [...] post op pain regiment, will be NWB for2 weeks with assistive device. Discharge home in [place]. present. Consults: Podiatry, IM, CM, PT OT [...] sprays into each nostril once daily FreeStyle Autumn 14 Day Sensor Misc furosemide 20 MG [...] 5-325 MG per tablet Commonly known as: [employer] Where to Get Your Medications These medications were sent to [id number] - [place], [place] - [address] [facility] - P [phone] - F [phone] [place] [address]35 acetaminophen 500 MG tablet oxyCODONE-acetaminophen 5-325 MG per tablet These medications were sent to [facility] [address] [facility] [address] - P [phone] - F [phone] [address] [id number] albuterol sulfate HFA 108 (90 Base) MCG/ACT inhaler Activity: NWB 2wks. Diet: The patient is asked to make an attempt to improve diet and exercise patterns to aid in medical management of this problem. Disposition: home. Wound Care: keep wound clean and dry.do not change Follow-up: Follow up with Dr. Jessica ROCK 08-07-24, call the office for an appointment. Greater than 40 minutes was spent reviewing pertinent details of patient notes and summarization ofthe patient's inpatient stay. documented in this encounterBon [facility] Hospital Discharge instructions* Discharge Instructions* Sreekanth Weber DPM - 07/26/2024 2:42 PM [...] take the non-prescription medication that you normally takefor aches and pains ie Tylenol and Ibuprofen [...] possible, you can also obtain these on [employer] for rather affordable and quickly obtainable. You [...] for the first 72 hours. This is importantfor post operative swelling and pain Ice: Apply [...] schedule or confirm your appointment. Call your Drying Equipment Operator office if you have any questions or concerns. documented in this encounterBon [facility] Hospital Discharge instructions* Discharge Instructions* Ashanti Harris RN - 07/18/2024 3:01 PM [...] powder, deodorant, jewelry, piercings, perfume, makeup, nail greenlandic, hair accessories, or hair spray on the day of surgery. Wear loose comfortable clothing. Leave your valuables at home. Bring a storage case for any glasses/contacts. The Day of Surgery: Arrive at [facility] Surgery Entrance at the time directed by your surgeon and check in at the desk. 12:00 pm If you have a living will or healthcare power of internet sales manager, please bring a copy. You will be taken to the pre-op holding area where you will be prepared for surgery. A physical assessment will be performed by a nurse practitioner or house detective. Your IV will be started and you will meet your anesthesiologist. When you go to surgery, your family will be directed to the surgical waiting room, where the doctorshould speak with them after your surgery. You [...] are in your room. [facility] Hospital Discharge instructions* Discharge Instructions* Jesus Singh DO - 07/14/2024 2:27 AM [...] been evaluated in the Emergency Department at [facility] 07/14/2024 Your recommendations and if necessary prescriptions from today's visit: -Follow-up with podiatry as noted above -Take medication as prescribed -Follow-up with your PCP If you do not have a primary care provider, establish care with a provider that you can begin to regularly follow-up with. Should you have any questions regarding your care or further treatment, please call [facility] Emergency Department at [phone]. PLEASE RETURN TO THE EMERGENCY DEPARTMENT IMMEDIATELY for -Numbness, tingling, weakness, significant pain not controlled at home OR -Changing symptoms -Worsening symptoms -Unable to follow up with your primary care provider -Any other care or concern documented in this [facility] History of Present illness Narrative* Phu Mora - 04/23/2024 1:15 PM EDT [facility] Outpatient Physical Therapy Daily Note Patient: Virgil Warner : 1975 CSN #: [id number] Referring Physician: No ref. provider found Date: 04/23/2024 Diagnosis: M79.7 fibromyalgia; L shoulder pain, M25.512 Treatment Diagnosis: chronic low back pain; L shoulder pain Onset Date: 12/08/23 PT Insurance Information: [employer] Total # of Visits Approved: 24 Per [...] 15x; L upper trap and scalenes stretch [id number] Exercise 8: Corner pec stretch [id number] Exercise 9: UBE -4/4 Exercise 10: pulleys [...] shld. Pain posterior shld. Progressed exercise to increaseROM and strength. Flexion remains limited to 135-deg. [...] ROM exercises to improve L shoulder mobility.-progressing Shelter Goals Time Frame for Vineyard Tender Goals : 4 weeks Vineyard Tender Goal 1: Pt will be safe and independent with her HEP Shelter Goal 2: Pt will increase lumbar AROM to WFL in order to reduce low back pain Vineyard Tender Goal 4: Pt will report 25% improvement in symptoms in order to improve quality of life Vineyard Tender Goal 5: Added 03/30: Patient to have improved L shoulder AROM equal to R shoulder ROM all planes with no increase in pain for improved functional mobility. intermediate goal 6: Added 03/30: Patient to have improved L shoulder strength >/=4/5 grossly all planes for improved stability. Minutes Tracking: Time In: 1315 Time Out: 1417 Minutes: 62 Phu Welsh Date: 04/23/2024 [facility] in [facility] History of Present illness Narrative* Génesis Hickman, GENERAL MERCHANDISE SALESPERSON - 04/12/2024 1:00 PM EDT [facility] Outpatient Physical Therapy Daily Note Patient: Virgil Warner : 1975 CSN #: [id number] Referring Physician: No ref. provider found Date: 04/12/2024 Treatment Diagnosis: chronic low back pain; L shoulder pain Onset Date: 12/08/23 PT Insurance Information: [employer] Total # of Visits Approved: 24 Per [...] 15x; L upper trap and scalenes stretch [id number] Exercise 8: Corner pec stretch [id number] Exercise 9: Supine PPT/ Bridge/ supine clam [...] ROM exercises to improve L shoulder mobility.-progressing Shelter Goals Time Frame for Vineyard Tender Goals : 4 weeks Vineyard Tender Goal 1: Pt will be safe and independent with her HEP Vineyard Tender Goal 2: Pt will increase lumbar AROM to WFL in order to reduce low back pain Vineyard Tender Goal 3: Pt will increase BLE strength to >/=4/5 and core strength to Good in order to increase ambulation tolerance Vineyard Tender Goal 4: Pt will report 25% improvement in symptoms in order to improve quality of life Shelter Goal 5: Added 03/30: Patient to have improved L shoulder AROM equal to R shoulder ROM all planes with no increase in pain for improved functional mobility. bed bug exterminator goal 6: Added 03/30: Patient to have improved L shoulder strength >/=4/5 grossly all planes for improved stability. Minutes Tracking: Time In: 1300 Time Out: 1347 Minutes: 47 Génesis Hickman, GENERAL MERCHANDISE SALESPERSON Date: 04/12/2024 documented in this [facility] History of Present illness Narrative* MattisumayaLary, GENERAL MERCHANDISE SALESPERSON - 03/01/2024 12:45 PM EDT [facility] Inpatient/Observation/Outpatient Rehabilitation Date: 03/01/2024 Patient Name: Virgil Warner [x] Outpatient : 1975 02/24/24 Plan of Care/Recert ends [x] Pt cancelled due to: [x] Sick/ill Therapist/Teaching Specialists will attempt to see this patient, at our earliest opportunity. Lary Rea, GENERAL MERCHANDISE SALESPERSON Date: 03/01/2024 documented in this encounterS[facility] Hospital Discharge instructions* Discharge Instructions* Vicki Finnegan PA-C - 06/16/2023 8:31 PM EDT Follow-up with your school teacher Dr. Marie for your syncope. Also follow-up with your neurologist for your syncope. Make sure you are drinking plenty of fluids, getting up slowly and cautiously, and being careful of your position with coughing. Testing today is improved. * Attachments The following attachments cannot be sent through Care Everywhere. * Fainting (Ivorian) documented in this encounterSOVA[facility]-19-[facility]23 History of Present illness Narrative* Yuliet Galaviz RN - 06/14/2023 1:22 PM EDT Discharge instructions, follow up appointment and medications reviewed with the patient and spouse and appropriate educational materials and side effects teaching were provided. * Emanuel Danielle MD - 06/14/2023 11:52 AM EDT Physician Progress Note PATIENT: VIRGIL WARNER CSN #: [id number] : 1975 ADMIT DATE: 06/10/2023 8:42 PM [...] you! Chauncey Colunga, BSN,RN, CRCR RN Clinical Barn Manager Options provided: -- Sepsis due to pneumonia [...] by: Emanuel Danielle MD 06/14/2023 11:51 AM * Génesis Hickman PTA - 06/14/2023 10:29 AM EDT Physical Therapy Facility/Department: [facility] Daily Treatment Note NAME: Virgil Warner : 1975 Date of Service: 06/14/2023 Discharge Recommendations: Continue to assess pending progress Patient Diagnosis(es): The primary encounter diagnosis was Recurrent syncope. A diagnosis of Pneumonia of both lower lobes due to infectious organism was also pertinent to this visit. Assessment Assessment: PT. able to ambulate [id number] with no AD, SBA for safety with no noted LOB. Transfers and bed mobility:SUP. Standing sink exercises B LE x15 Activity Tolerance: Patient tolerated treatment well Plan Physcial Therapy Plan General Plan: 2 times a day 7 days a week Specific Instructions for Next Treatment: 1x/daily on weekends and holidays Current Treatment Recommendations: Strengthening;Balance training;Gait training;Functional mobilitytraining;Stair training;Home exercise program;Therapeutic activities;Safety education & training;Neuromuscular re- education;Transfer training;Patient/Caregiver education & training;Endurance t raining;Pain management Restrictions Restrictions/Precautions Restrictions/Precautions: General Precautions, Fall [...] minutes of ambulation/exercises with minimal rest breaks inorder to increase endurance Patient Goals Patient Goals : to get home Education Patient Education Education Given To: Patient Education Provided: Role of Therapy;Plan of Care;Home Exercise Program Education Method: Verbal Barriers to Learning: None Education Outcome: Verbalized understanding;Demonstrated understanding Therapy Time Individual Concurrent Group Co-treatment Time In 0743 Time Out 0807 Minutes 24 Génesis Hickman PTA * Yuliet Galaviz RN - 06/14/2023 10:01 AM EDT Patient up walking the rich. Asking about being discharged. * Shira Dobbins RN - 06/13/2023 11:42 PM EDT Peer Support Specialist at bedside for shift assessment. Patient sitting up in bed, respirations are even and unlabored while on room air. Vitals obtained and assessment completed, see flowsheet for details. Medications given, see MAR for details. Snacks and fresh water provided. pt denies further needs at this time. Call light in reach. * Génesis Hickman PTA - 06/13/2023 12:58 PM EDT Physical Therapy Facility/Department: [facility] Daily Treatment Note NAME: Virgil Warner : 1975 Date of Service: 06/13/2023 Discharge Recommendations: Continue to assess pending progress Patient Diagnosis(es): The primary encounter diagnosis was Recurrent syncope. A diagnosis of Pneumonia of both lower lobes due to infectious organism was also pertinent to this visit. Assessment Assessment: Pt. able to ambulate with no AD, [id number],30ftx1 with one noted imbalance, able to self correct and required one standing RB d/t fatigue. Seated exercises B LE x20. Bed mobility: SUP. Transfers:SBA Activity Tolerance: Patient tolerated treatment well;Patient limited by pain Plan Physcial Therapy Plan General Plan: 2 times a day 7 days a week Specific Instructions for Next Treatment: 1x/daily on weekends and holidays Current Treatment Recommendations: Strengthening;Balance training;Gait training;Functional mobilitytraining;Stair training;Home exercise program;Therapeutic activities;Safety education & training;Neuromuscular re- education;Transfer training;Patient/Caregiver education & training;Endurance t raining;Pain management Restrictions Restrictions/Precautions Restrictions/Precautions: General Precautions, Fall [...] minutes of ambulation/exercises with minimal rest breaks inorder to increase endurance Patient Goals Patient Goals : to get home Education Patient Education Education Given To: Patient Education Provided: Role of Therapy;Plan of Care;Home Exercise Program Education Method: Verbal Barriers to Learning: None Education Outcome: Verbalized understanding;Demonstrated understanding Therapy Time Individual Concurrent Group Co-treatment Time In 1112 Time Out 1145 Minutes 33 Génesis Hickman PTA * Stacy Espinoza, [place] - 06/13/2023 11:21 AM EDT Occupational Therapy Facility/Department: [facility] Daily Treatment Note NAME: Virgil Warner : 1975 Date of Service: 06/13/2023 [...] Time Out 1113 Minutes 27 AGNES Mathias * Génesis Hickman, GENERAL MERCHANDISE SALESPERSON - 06/13/2023 10:38 AM EDT Physical Therapy Facility/Department: [facility] Daily Treatment Note NAME: Virgil Warner : 1975 Date of Service: 06/13/2023 Discharge Recommendations: Continue to assess pending progress Patient Diagnosis(es): The primary encounter diagnosis was Recurrent syncope. A diagnosis of Pneumonia of both lower lobes due to infectious organism was also pertinent to this visit. Assessment Assessment: Pt. able to ambulate with no AD, 535vue8,30ftx1 with no nted OB and required one standing RB d/t fatigue. Seated exercises B LE x15. Cmmode use and transfer. Bed mobility:SBA/SUP. Transfers:SBA Activity Tolerance: Patient tolerated treatment well;Patient limited by pain Plan Physcial Therapy Plan General Plan: 2 times a day 7 days a week Specific Instructions for Next Treatment: 1x/daily on weekends and holidays Current Treatment Recommendations: Strengthening;Balance training;Gait training;Functional mobilitytraining;Stair training;Home exercise program;Therapeutic activities;Safety education & training;Neuromuscular re- education;Transfer training;Patient/Caregiver education & training;Endurance t raining;Pain management Restrictions Restrictions/Precautions Restrictions/Precautions: General Precautions, Fall [...] minutes of ambulation/exercises with minimal rest breaks inorder to increase endurance Patient Goals Patient Goals : to get home Education Patient Education Education Given To: Patient Education Provided: Role of Therapy;Plan of Care;Home Exercise Program Education Method: Verbal Barriers to Learning: None Education Outcome: Verbalized understanding;Demonstrated understanding Therapy Time Individual Concurrent Group Co-treatment Time In 0736 Time Out 0803 Minutes 27 Génesis Hickman PTA * Dara Block RD, LD - 06/13/2023 10:05 AM EDT Comprehensive Nutrition Assessment Type and Reason for [...] muscle mass loss Fluid Accumulation: Mild Extremities Steam Flattener Strength: Not Performed Nutrition Assessment: Altered nutrition related labs r/t endocrine dysfunction, AEB glucose excursions on steroid with known diabetes. Improving A1C over time, down to 8.1. Asked provider to be on regular diet to choose for herself, which was granted. Weight consistently elevated/obese with mild fluctuations. 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 Nutrition Related Findings: obese, trace LLE edema. Wound Type: None Current Nutrition Intake & Therapies: Average Meal Intake: 76-100% Average Supplements Intake: None Ordered ADULT DIET; Regular Anthropometric Measures: Height: 5' 6 (167.6 cm) Rumsey Body Weight (IBW): 130 lbs (59 kg) [...] Used for Energy Requirements: Current Energy (kcal/day): 1577-4545 (15-18) Weight Used for Protein Requirements: Rumsey Protein (g/day): 71-83 (1.2-1.4) Method Used for [...] Planning: No discharge needs at this time Dara Block RD, [place]UE[place] Contact: [phone] * Shelley Champagne, BELT PICKER - 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 - 06/13/2023 9:10 AM EDT Progress Note SUBJECTIVE: Patient seen for f/u [...] 1440 ml Output -- Net 1440 ml Exam: GEN: Awake, alert and oriented x3. [...] intact SKIN: No rashes. No skin lesions. Diagnostic Data: Complete Blood Count: Recent Labs 06/11/2353406/12/2353406/13/23 0600 WBC 12.6* 16.4* 13.4* RBC 3.80* 3.54* 3.91* HGB 12.0 11.2* 12.2 HCT 37.6 34.5* 38.0 MCV 98.9 97.5 97.2 MCH 31.6 31.6 31.2 MCHC 31.9 32.5 32.1 RDW 14.0 13.7 13.6 PLT 297 367 226 MPV 9.4 10.6 9.5 Last 3 Blood Glucose: Recent Labs 06/10/23210606/11/2353406/12/2353406/13/23 0600 GLUCOSE 109* 153* 295* 199* Comprehensive [...] Jardiance, Humulin R Nutrition status: obesity, non-morbid Fusion Operator consult initiated Hospital Prophylaxis: DVT: Lovenox Stress Ulcer: H2 Unique Disposition: Shared decision making: All test results, treatment options and disposition options were discussed with the patient today Social determinants of health that may impact management: none Code status: Full Code Disposition: Discharge plan is pending [facility] Advanced Care Planning documentation: [x] I have confirmed that the patient's Advance Care Plan is present, Code Status is documented, orsurrogate decision maker is listed in the patient's [...] the patient's medical record. [DOES NOT SATISFY [facility] PERFORMANCE] Shelley Champagne APRN - GEORGES , JOSSE, MAILING MANAGER-C Hospitalist Medicine 06/13/2023, 9:10 AM Associated attestation - Emanuel Danielle MD - 06/13/2023 5:31 PM EDT Images from the original note were not included. [address] , [place], [place], [address] Attestation Patient: Virgil Warner Date of Admission: 06/10/2023 8:42 PM Hospital Day # 3 Date of Evaluation: 06/13/2023 I personally evaluated and examined the patient [id number] in conjunction with the PA/MAILING MANAGER and agree with the management and dispostition of the patient. Please see the PA/MAILING MANAGER's note for full details.My lezama findings are: SUBJECTIVE: Patient seen for [...] 1040 ml Output -- Net 1040 ml Exam: GEN: Awake, alert and oriented x3. [...] with the plan as outlined in the MAILING MANAGER/PA's note Disposition: Discharge plan is pending Please note that this chart was generated using voice recognition [employer] dictation software. Although every effort was made to ensure the accuracy of this automated environmental engineer, some errors in environmental engineer may have occurred. Emanuel Danielle MD 06/13/2023 5:31 PM * Eulalia Solis RCP - 06/13/2023 8:53 AM EDT RESPIRATORY ASSESSMENT PROTOCOL Patient Name: Virgil Warner Room#: 0315/0315-01 : 1975 Admitting diagnosis: [...] Value Date/Time PHART 7.293 07/02/2013 04:20 PM BOI0MWF 36.8 07/02/2013 04:20 PM PO2ART 70.6 07/02/2013 04:20 PM T1NSPVQN 92.6 07/02/2013 04:20 PM QKH5PLU 17.4 07/02/2013 04:20 PM PBEA NOT REPORTED [...] Cessation Booklet given: ____Yes ____No ____Patient Refused * Joanie Donovan RN - 06/13/2023 7:[address] Danielle of positive blood cultures. No new orders. * Ramya Nam RN - 06/12/2023 7:14 PM EDT Pt sitting up in the bed watching TV when clinical writer entered the room. Pt is A&O x4. Vitals and assessment as charted. Pt rated her pain a 6 out of 10 in her head. Tramadol 50mg PO given. Pt also requested cough medicine. Pt given Tessalon 100mg PO. Pt denies any further needs at this time. Call light within reach. * CHESTER Mathias - 06/12/2023 9:29 AM EDT Occupational Therapy Facility/Department: [facility] Daily Treatment Note NAME: Virgil Warner : 1975 Date of Service: 06/12/2023 [...] func transfers. CGA/Min A to complete func mobwith no AD. OT Exercises Exercise Treatment: Pt [...] Time Out 0905 Minutes 15 REBEL Mathias/Dee * Makayla Leon RN - 06/12/2023 8:15 AM EDT Pt awake eating breakfast as side of bed upon entering room. Pt stated pain was 7-8 in back and neck. PRN medication given. VS and assessment as charted. Pt independent in room. Call light in reach continue to monitor. * Emanuel Danielle MD - 06/12/2023 8:08 AM EDT Images from the original note were not included. [address] , [place], [place], [address] Progress Note Date: 06/12/2023 Patient name: iVrgil Warner Date of admission: 06/10/2023 8:42 PM [...] 1 tablet by mouth at bedtime 09/20/22 ASHELY King CNP empagliflozin (JARDIANCE) 10 MG tablet [...] Historical Provider, Continuous Blood Gluc Sensor (FREESTYLE AUTUMN 14 DAY SENSOR) MISC 01/28/21 Historical Provider, [...] tablet by mouth 3 times daily. 02/21/19 Jasper Cleveland MD Insulin Pen Needle 30G X [...] clubbing or edema DIAGNOSTICS: Laboratory Testing: See [facility] EMR for lab data Recent Results [...] Daily Emanuel Danielle MD 81 mg at 06/11/23904 atorvastatin (LIPITOR) tablet 80 mg 80 mg Oral Nightly Emanuel Danielle MD 80 mg at 06/11/232026 ibuprofen (ADVIL;MOTRIN) tablet 400 mg 400 mg Oral TID WC Emanuel Dnaielle MD 400 mg at 06/11/231653 DULoxetine (CYMBALTA) [...] Daily Emanuel Danielle MD 40 mg at 06/11/23906 ondansetron (ZOFRAN-ODT) [...] PRN Emanuel Danielle MD 5 mL at 06/11/231654 guaiFENesin (MUCINEX) extended release tablet 600 mg 600 mg Oral BID Emanuel Danielle MD 600 mg at 09/16/23 2027 benzonatate (TESSALON) capsule 100 mg 100 mg Oral TID PRN Emanuel Danielle MD 100 mg at 06/11/23 1503 cefTRIAXone (ROCEPHIN) 1,000 mg in sodium chloride 0.9 % 50 mL IVPB (mini-bag) 1,000 mg [id number] Emanuel Danielle MD Stopped at 06/12/23 0038 And azithromycin (ZITHROMAX) tablet 500 mg 500 mg Oral Q24H Emanuel Danielle MD 500 mg at 06/12/23 0007 gabapentin (NEURONTIN) capsule 600 mg 600 mg Oral TID Emanuel Danielle MD 600 mg at 06/11/232026 fenofibrate (TRIGLIDE) tablet 160 mg 160 mg Oral Daily Emanuel Danielle MD 160 mg at 06/11/23 023 cetirizine [...] 0-4 Units SubCUTAneous Nightly Emanuel Danielle MD 4Units at 06/11/232023 insulin regular human (humuLIN R U-500 KWIKPEN) 500 UNIT/ML concentrated injection pen 100 Units (Patient Supplied) 100 Units SubCUTAneous BID Emanuel Danielle MD 100 Units at 06/11/231651 insulin lispro (HUMALOG) injection vial 15 Units 15 Units SubCUTAneous TID WC Emanuel Danielle MD 15 Units at 06/11/23 1656 glucose chewable tablet 16 g 4 [...] pending DVT prophylaxis: Lovenox GI prophylaxis: H2 Unique Above plan discussed with the patient who agreed to the above plan Discussed care plan with nurse after getting their input. Please note that this chart was generated using voice recognition tagUin dictation software. Although every effort was made to ensure the accuracy of this automated environmental engineer, some errors in environmental engineer may have occurred. Emanuel Danielle MD 06/12/2023 8:08 AM * Laurence Weathers RN - 06/11/2023 8:33 PM EDT Patient resting in bed visiting with visitor who is at bedside. Vital signs and assessment completed. Patient rates pain 8/10 at this time in back. Nightly medications given including prn tramadol and baclofen for chronic back pain. Water pitcher refilled. Patient denies any other needs at this time. Call light, bedside table and personal belongings within reach. * Makayla Leon RN - 06/11/2023 5:54 PM EDT Pt has 2 insulin pens locked in body finisher room. Only using the Humulin 500. Pt stated after being asked where the needles are there is already one on it clinical writer asked you reuse your needles? Pt nodded yes. * Makayla Leon RN - 06/11/2023 4:[address] Danielle of pts BS of 567. He is looking into her home insulin but said to give 25 total units now and to order lantus 60 units nightly. * Makayla Leon RN - 06/11/2023 3:[address] Danielle of pts random BS [...] pearls also given for cough. Told pt clinical writer would update for any changes. * Ivet Rinaldi OT - 06/11/2023 3:05 PM EDT Occupational Therapy Facility/Department: [facility] Occupational Therapy Initial Assessment Name: Virgil Warner : 1975 Date of Service: 06/11/2023 [...] HIGH CHOLESTEROL, History of Holter monitoring, History ofstress test, Hx of cardiac cath, Hypertension, Hypothyroidism, [...] surgical history (09/2022); Colonoscopy (N/A, 12/08/2022); and Colonoscopy(12/08/2022). Treatment Diagnosis: Generalized weakness Assessment Performance deficits / Impairments: Decreased functional mobility ;Decreased ADL status;Decreased strength;Decreased endurance;Decreased balance;Decreased high- level IADLs Assessment: Pt presents with decreased strength, endurance, balance, and safety awareness affectingher ability to safely perform ADL tasks. Pt would benefit from skilled OT services to address thesedeficits and return to PLOF. Treatment Diagnosis: Generalized weakness Prognosis: Good Decision Making: Medium Complexity REQUIRES OT FOLLOW-UP: Yes Plan Occupational Therapy Plan Times Per Day: Once a day Days Per Week: 7 Days Current Treatment Recommendations: Strengthening, ROM, Balance training, Functional mobility training, Endurance training, Safety education & training, Patient/Caregiver education & training,Equipment evaluation, education, & procurement, Self-Care / ADL, Home management training Restrictions Restrictions/Precautions Restrictions/Precautions: General Precautions, Fall Risk Subjective Subjective Subjective: Pt reports the biggest issued is her endurance and standing anne. I might need a showerchair. Social/Functional History Social/Functional History Lives With: Spouse Type of Home: House Home Layout: Two level, Able to Live on Main level with bedroom/bathroom Home Access: Stairs to enter without rails Bathroom Shower/Tub: Tub/Shower unit Bathroom Equipment: Hand-held shower ADL Assistance: Independent Homemaking Assistance: Independent Ambulation Assistance: Independent Transfer Assistance: Independent Active Inspector Bicycle: Yes Objective Safety Devices Type of Devices: [...] Out 0215 Minutes 15 Ivet Rinaldi OT * Sahara Strauss, PT - 06/11/2023 1:16 PM EDT Physical Therapy Facility/Department: [facility] Physical Therapy Initial Assessment Name: Virgil Warner : 1975 Date of Service: 06/11/2023 [...] HIGH CHOLESTEROL, History of Holter monitoring, History ofstress test, Hx of cardiac cath, Hypertension, Hypothyroidism, [...] surgical history (09/2022); Colonoscopy (N/A, 12/08/2022); and Colonoscopy(12/08/2022). Assessment Body Structures, Functions, Activity Limitations Requiring Skilled Therapeutic Intervention: Decreased functional mobility ;Decreased endurance;Decreased strength;Decreased high-level IADLs;Decreasedbalance Assessment: Pt is a 48 year old [...] Neuromuscular re-education, Transfer training, Patient/Caregiver education & training,Endurance training, Pain management Safety Devices Type of [...] minutes of ambulation/exercises with minimal rest breaks inorder to increase endurance Patient Goals Patient Goals : to get home Education Patient Education Education Given To: Patient Education Provided: Role of Therapy;Plan of Care Therapy Time Individual Concurrent Group Co-treatment Time In 1221 Time Out 1234 Minutes 13 Sahara Strauss PT * Joanie Donovan RN - 06/11/2023 7:07 AM EDT Morning VS and assessment completed. Patient complains of back and neck pain this morning. Educatedon medication times. Assisted patient to the bathroom with minimal help. Patient steady on feet. O2was off patient upon entering room. O2 reads 90%. Will keep patient on room air for now. No furtherneeds at this time. Care ongoing. * Laurence Weathers RN - 06/11/2023 12:45 AM EDT Orthostatic BPs completed by clinical writer at this time as patient was c/o of multiple episodes of syncopeand collapse at home. * Laurence Weathers RN - 06/11/2023 12:32 AM EDT Patient arrived to [facility], room 315, at this time via wheelchair. Patient independently stood and ambulated to bed. Patient is alert and orientated and on 2L of nasal cannula O2. Patient does NOT normally wear O2 at home. Weight was obtained. documented in this encounterB[facility]04-[facility]-2023 NoteCONSULTATION CONSULTATION DATE: 12/30/2022 TO: Dr. Ferraro CHIEF [...] our patients to inform us about any [id number] medications or herbal remedies/nutritional supplements/alternative remedies. 2. [...] and treatment options with their primary care provider.[facility] [id number] History of Present illness Narrative* Makayla Ji RN - 12/08/2022 2:26 PM EDT Discharge Criteria Inpatients must meet Criteria 1 [...] 14. Accompanied by a responsible adult. Yes * Serene Salgado RN - 11/25/2022 4:07 PM EST Patient states they received their colon prep [...] the day of surgery. documented in this encounterBON [facility] [employer] Phone: [phone]) [phone] Hospital Discharge instructions* Discharge Instructions* Makayla Ji RN - 12/08/2022 1:59 PM [...] in 2 weeks. If you have not receiveda letter or a phone call in 2 [...] the nearest Emergency Room. documented in this encounterBON [facility] Work Phone: [phone]) 883-806903-07-2023 NoteCONSULTATION CONSULTATION DATE: 11/30/2022 CHIEF COMPLAINT: Includes severe [...] the office after she undergoes the imaging studies.[facility] [id number] History of Present illness Narrative* Alyson Carlos - 11/23/2022 1:00 PM EST Patient arrived for home sleep study. Instructed on home sleep monitoring device use and benefits. documented in this encounterBON [facility] [employer] Work Phone: 1([phone]) 489-419601-26-2023 NoteCONSULTATION CONSULTATION DATE: 10/21/2022 HISTORY OF PRESENT ILLNESS: This is a 47-year-old female who returns to the clinic status post thoracic RFA bilaterally of T9, T10 and T11, T12. This was completed on 09/14/2022 and has afforded her significant relief. On the 04 of October, patient had her spinal stimulator removed by Dr. Sherman in [place]. Overall, she is feeling increased relief, but [...] and be followed up in the clinic thereafter.[facility] [id number] History of Present illness Narrative * Jerilyn Li RN - 10/08/2022 3:30 PM EST Patient instructed on extended monitor worker indications and use. Diary sent with patient. documented in this encounterBON [facility]AN[facility] Work Phone: 1([phone]) 717-755801-04-2023 History of Present illness Narrative* Jerilyn Li RN - 09/29/2022 1:00 PM EST Instructed on objectives and procedure of a tilt study documented in this encounterB[facility] [employer] Work Phone: [phone]) 139-469212-13-2022 Evaluation note* Encounter Date Diagnosis Assessment Notes Treatment Notes Treatment Clinical Notes Aug, Pain from implanted hardware, initial [...] and she apparently declined the procedure because shedid not have a co-pay. She has now again discussed removing the dorsal column stimulator wires she understands the indication operation postop course risk and benefits of surgery which include inability to remove the wires completely, potential infection. Highly unlikely that there would be a spinal complication with this.Patient understands agrees and would like to proceed with surgical intervention [employer] Other 12-01-2022 NoteCONSULTATION CONSULTATION DATE: 08/26/2022 HISTORY [...] appointment on 09/07/[address] Sherman in [place] to discuss removal of her nerve stimulator. She is diabetic with the most recent A1c being 7.8 as of yesterday. This is a great improvement for her. Medications include diclofenac 75 mg b.i.d., Requip 4 mg daily, duloxetine, gabapentin, baclofen and [employer] 5/325 b.i.d. The patient is inquiring about returning to tramadol, as she felt she got better pain relief with the tramadol over the [employer]. Current pain at rest today is 4/10; [...] post procedure and agrees to move forward.[facility] 08-06-2022 History of Present illness Narrative* Olivia Nam PT - 08/06/2022 1:15 PM EST [...] pool passes to continue with aquatic exercises. Olivia Nam PT, DPT documented in this encounterB[facility] [employer] Work Phone: 1([phone]) 106-891111-03-2022 NoteCONSULTATION CONSULTATION DATE: 07/29/2022 HISTORY OF PRESENT [...] have this removed by Dr. Sherman in [place] on 09/07/2022. She was last seen on 04/29/2022 which, at that time, she was just starting physical therapy as prescribed by her security checker. She feels, between ground and the pool [...] followed up in the office post procedure.[facility] [id number] History of Present illness Narrative* Mulu Mccray, GENERAL MERCHANDISE SALESPERSON - 07/19/2022 4:30 PM EDT [facility] Outpatient Physical Therapy Daily Note Patient: Virgil Warner : 1975 CSN #: [id number] Referring Physician: Tyree Hidalgo MD Date: 07/19/2022 Diagnosis: Other LBP, M54.59, pain in unspecified hip, M25.559 Treatment Diagnosis: Decreased activity endurance, trochanteric bursitis, chronic LBP PT Insurance Information: [employer] Total # of Visits Approved: 20 Per [...] independent and compliant with a HEP -met Vineyard Tender Goal 2: Patient will improve bilateral hip ROM to 90* for ADLs Vineyard Tender Goal 3: Patient will improve bilateral LE strength to >/= 4/5 for ADLs. Shelter Goal 4: Patient will improve 5 time sit to stand test time to <30 seconds to indicate improved muscular power Vineyard Tender Goal 5: The patient will improve ambulation endurance to be able to ambulate >300' before requiring a seated rest break. Minutes Tracking: Time In: 1611 Time Out: 1705 Minutes: 54 Timed Code Treatment Minutes: 51 Minutes Mulu Shazia, GENERAL MERCHANDISE SALESPERSON [id number] Date: 07/19/2022 documented in this encounterBON [facility] [employer] Phone: [phone] 151-351610-21-2022 History of Present illness Narrative* Olivia Nam PT - 07/16/2022 2:45 PM EDT [facility] Outpatient Physical Therapy Daily Note Patient: Virgil Warner : 1975 CSN #: [id number] Referring Physician: Tyree Hidalgo MD Date: 07/16/2022 Treatment Diagnosis: Decreased activity endurance, trochanteric bursitis, chronic LBP PT Insurance Information: [employer] Total # of Visits Approved: 20 Per [...] <30 seconds to indicate improved muscular power Vineyard Tender Goal 5: The patient will improve ambulation endurance to be able to ambulate >300' before requiring a seated rest break. Minutes Tracking: Time In: 1445 Time Out: 1530 Minutes: 45 Timed Code Treatment Minutes: 43 Minutes Olviia Nam, PT, DPT Date: 07/16/2022 documented in this encounterBON [employer] Phone: [phone] 938-995110-17-2022 History of Present illness Narrative* Mulu Mccray, GENERAL MERCHANDISE SALESPERSON - 07/12/2022 2:15 PM EDT [facility] Outpatient Physical Therapy Daily Note Patient: Virgil Warner : 1975 CSN #: [id number] Referring Physician: Tyree Hidalgo MD Date: 07/12/2022 Treatment Diagnosis: Decreased activity endurance, trochanteric bursitis, chronic LBP PT Insurance Information: [employer] Total # of Visits Approved: 20 Per [...] ADLs. -met Shelter Goals Time Frame for Vineyard Tender Goals : 4 weeks Vineyard Tender Goal 1: Patient will be independent and compliant with a HEP -met Vineyard Tender Goal 2: Patient will improve bilateral hip ROM to 90* for ADLs Shelter Goal 3: Patient will improve bilateral LE strength to >/= 4/5 for ADLs. Vineyard Tender Goal 4: Patient will improve 5 time sit to stand test time to <30 seconds to indicate improved muscular power Vineyard Tender Goal 5: The patient will improve ambulation endurance to be able to ambulate >300' before requiring a seated rest break. Minutes Tracking: Time In: 1411 Time Out: 1457 Minutes: 46 Timed Code Treatment Minutes: 44 Minutes [facility] Mulu Mccray, GENERAL MERCHANDISE SALESPERSON [id number] Date: 07/12/2022 documented in this encounterBON [facility] Work Phone: [phone]) 491-293710-10-2022 History of Present illness Narrative* Karrie Beltran PTA - 07/05/2022 3:00 PM EDT [facility] Outpatient Physical Therapy Daily Note Patient: Virgil Warner : 1975 CSN #: [id number] Referring Physician: Tyree Hidalgo MD Date: 07/05/2022 Treatment Diagnosis: Decreased activity endurance, trochanteric bursitis, chronic LBP PT Insurance Information: [employer] Total # of Visits Approved: 20 Per [...] ADLs. -met Shelter Goals Time Frame for Vineyard Tender Goals : 4 weeks Shelter Goal 1: Patient will be independent and compliant with a HEP -met Shelter Goal 2: Patient will improve bilateral hip ROM to 90* for ADLs Shelter Goal 3: Patient will improve bilateral LE strength to >/= 4/5 for ADLs. Vineyard Tender Goal 4: Patient will improve 5 time sit to stand test time to <30 seconds to indicate improved muscular power Vineyard Tender Goal 5: The patient will improve ambulation endurance to be able to ambulate >300' before requiring a seated rest break. Minutes Tracking: Time In: 1500 Time Out: 1543 Minutes: 43 Karrie BeltranMILAGROS Date: 07/05/2022 documented in this encounterBON [facility]KR[facility]ST[facility] [employer] Work Phone: [phone]) 554-761010-07-2022 History of Present illness Narrative* Olivia Nam PT - 07/02/2022 10:00 AM EDT [facility] Outpatient Physical Therapy Daily Note Patient: Virgil Warner : 1975 CSN #: [id number] Referring Physician: Tyree Hidalgo MD Date: 07/02/2022 Treatment Diagnosis: Decreased activity endurance, trochanteric bursitis, chronic LBP PT Insurance Information: [employer] Total # of Visits Approved: 20 Per [...] exercise to improve endurance for ADLs. -met Vineyard Tender Goals Time Frame for Shelter Goals : [...] 45 Timed Code Treatment Minutes: 43 Minutes Olivia Nam PT, DPT Date: 07/02/2022 documented in this encounterBON [facility] Work Phone: [phone]) 707-163910-03-2022 History of Present illness Narrative* Karrie Beltran, GENERAL MERCHANDISE SALESPERSON - 06/28/2022 3:00 PM EDT [facility] Outpatient Physical Therapy Daily Note Patient: Virgil Warner : 1975 CSN #: [id number] Referring Physician: Tyree Hidalgo MD Date: 06/28/2022 Treatment Diagnosis: Decreased activity endurance, trochanteric bursitis, chronic LBP PT Insurance Information: [employer] Total # of Visits Approved: 20 Per [...] pt required further clarification. Post Treatment Pain: 8/ low back - not a sollid 8 [...] exercise to improve endurance for ADLs. -met Vineyard Tender Goals Time Frame for Shelter Goals : 4 weeks Shelter Goal 1: Patient will be independent and compliant with a HEP Shelter Goal 2: Patient will improve bilateral hip ROM to 90* for ADLs Shelter Goal 3: Patient will improve bilateral LE strength to >/= 4/5 for ADLs. Vineyard Tender Goal 4: Patient will improve 5 time sit to stand test time to <30 seconds to indicate improved muscular power Vineyard Tender Goal 5: The patient will improve ambulation endurance to be able to ambulate >300' before requiring a seated rest break. Minutes Tracking: Time In: 1502 Time Out: 1542 Minutes: 40 Karrie Beltran PTA Date: 06/28/2022 documented in this encounterBON [employer] Work Phone: [phone] History of Present illness Narrative* Karrie Beltran, GENERAL MERCHANDISE SALESPERSON - 06/18/2022 1:30 PM EDT [facility] Outpatient Physical Therapy Daily Note Patient: Virgil Warner : 1975 CSN #: [id number] Referring Physician: Tyree Hidalgo MD Date: 06/18/2022 Treatment Diagnosis: Decreased activity endurance, trochanteric bursitis, chronic LBP PT Insurance Information: [employer] Total # of Visits Approved: 12 Per Physician Order Total # of Visits to Date: 7 No Show: 0 Canceled Appointment: 2 Pre-Treatment Pain: Subjective: Pt states she feels like she [...] Post Treatment Pain: 10 Plan Plan Frequency: 2-3 Plan weeks: 4-6 Goals (Total # of Visits to Date: 7) Short Term Goals Time Frame for Short term goals: 2 weeks Short term goal 1: Patient will be initiated with a HEP -MET Short term goal 2: Patient will tolerate 30 min of aquatic exercise to improve endurance for ADLs. -met Shelter Goals Time Frame for intermediate goals : 4 weeks bed bug exterminator goal 1: Patient will be independent and compliant with a HEP bed bug exterminator goal 2: Patient will improve bilateral hip ROM to 90* for ADLs intermediate goal 3: Patient will improve bilateral LE strength to >/= 4/5 for ADLs. bed bug exterminator goal 4: Patient will improve 5 time sit to stand test time to <30 seconds to indicate improved muscular power intermediate goal 5: The patient will improve ambulation endurance to be able to ambulate >300' before requiring a seated rest break. Minutes Tracking: Time In: 1332 Time Out: 1406 Minutes: 34 Karrie Beltran PTA Date: 06/18/2022 documented in this encounterBON [facility] Work Phone: [phone]) 201-766309-19-2022 History of Present illness Narrative* Karrie Beltran PTA - 06/14/2022 3:00 PM EDT [facility] Outpatient Physical Therapy Daily Note Patient: Virgil Warner : 1975 CSN #: [id number] Referring Physician: Tyree Hidalgo MD Date: 06/14/2022 Treatment Diagnosis: Decreased activity endurance, trochanteric bursitis, chronic LBP PT Insurance Information: [employer] Total # of Visits Approved: 12 Per [...] ADLs. -met Shelter Goals Time Frame for bed bug exterminator goals : 4 weeks intermediate goal 1: Patient will be independent and compliant with a HEP intermediate goal 2: Patient will improve bilateral hip ROM to 90* for ADLs bed bug exterminator goal 3: Patient will improve bilateral LE strength to >/= 4/5 for ADLs. intermediate goal 4: Patient will improve 5 time sit to stand test time to <30 seconds to indicate improved muscular power intermediate goal 5: The patient will improve ambulation endurance to be able to ambulate >300' before requiring a seated rest break. Minutes Tracking: Time In: 1515 Time Out: 1545 Minutes: 30 Karrie Beltran PTA Date: 06/14/2022 documented in this [facility] [email or web address] Phone: [phone] History of Present illness Narrative* Cristina Antonio - 06/02/2022 1:45 PM EDT [facility] Inpatient/Observation/Outpatient Rehabilitation Date: 06/02/2022 Patient Name: Virgil Warner [] Inpatient Acute/Observation [] Outpatient : 1975 [] Pt no showed for scheduled appointment [] Pt refused/declined therapy at this time due to: [x] Pt cancelled due to: [] No Reason Given [] Sick/ill [] Other: Has 2 open wounds cx today and tuesday Therapist/Teaching Specialists will attempt to see this patient, at our earliest opportunity. Cristina Antonio Date: 06/02/2022 documented in this encounterB[facility] [employer] Work Phone: 1([phone]) 801-640208-30-2022 History of Present illness Narrative* Nathan Garcia, PT - 05/25/2022 2:45 PM EDT [facility] Outpatient Physical Therapy Daily Note Patient: Virgil Warner : 1975 CSN #: [id number] Referring Physician: Tyree Hidalgo MD Date: 05/25/2022 [...] aquatic exercise to improve endurance for ADLs. Shelter Goals Time Frame for bed bug exterminator goals : 4 weeks intermediate goal 1: Patient will be independent and compliant with a HEP intermediate goal 2: Patient will improve bilateral hip ROM to 90* for ADLs intermediate goal 3: Patient will improve bilateral LE strength to >/= 4/5 for ADLs. bed bug exterminator goal 4: Patient will improve 5 time sit to stand test time to <30 seconds to indicate improved muscular power intermediate goal 5: The patient will improve ambulation endurance to be able to ambulate >300' before requiring a seated rest break. Minutes Tracking: Time In: 1446 Time Out: 1543 Minutes: 57 Timed Code Treatment Minutes: 54 Minutes Nathan Garcia PT Date: 05/25/2022 documented in this encounterB[facility] [email or web address] Phone: [phone]) 706-755908-04-2022 NoteCONSULTATION CONSULTATION DATE: 04/29/2022 HISTORY OF PRESENT [...] fatty liver disease. She recently saw her security checker and was prescribed physical therapy. The patient [...] indicated and patient agrees with this plan.[facility] [id number] NoteCONSULTATION CONSULTATION DATE: 04/01/2022 This is a [...] is also under the care of her security checker who video arcade manager her fibromyalgia. She feels very flared [...] will discontinue the Tramadol, change it to [employer] 5/325 b.i.d. contingent upon the patient bringing [...] be followed up in the office post-procedure. [facility] Signed and Approved by: LESLIE GAMEZ . 04/08/2022 09:47:00[facility]07-07-2022 Note [facility] Vascular Lower Arterial Plethysmography Procedure Patient Name TIMMY Date of Study 03/31/2022 VIRGIL Cooper Date of 1975 Gender Female Age 47 year(s) Race Room Number Corporate ID [id number] # Patient Acct [id number] # MR # [id number] Plastic And Reconstructive Surgeon Vicki Spicer RVT Interpreting Physician Ruddy Mallory DO Referring Referring Physician Vivian Lemos Nurse Practitioner Procedure Type of Study: Extremities [...] ! !!107 !0.8 ! ! +---------++--------+-----+ ++--------+-----+ +[id number] History of Present illness Narrative* Corrine Guerra RN - 03/03/2021 11:00 AM EDT Patient ordered stress echo test. The patient is unable to walk due to back and leg issues. Talked with ordering physician and changed to Lexiscan nuclear stress test. Patient verbalizes agreement. documented in this [facility] [email or web address] Phone: [phone]) 932-813804-27-2021 History of Present illness Narrative* Yamel Guadarrama [...] recovered for 2 hours. [facility]: [phone]) 432-695204-27-2021 Hospital Discharge instructions* Instructions* Yamel Guadrarama RN - 01/20/2021 Images from the original [...] your doctor if you can take an ckuw-irj-tdsjldi medicine. If you think your pain medicine [...] Where can you learn more? Go to [email or web address].org and sign in to your [employer] account. Enter P586 in the Search Health Information box to learn more about Lumbar Puncture: What to Expect at Home. If you do not have an account, please click on the Sign Up Now link. Sprig. Care instructions adapted under license by [facility]. This care instruction is for use with your licensed healthcare professional. If you have questions about amedical condition or this instruction, always ask your healthcare professional. Sprig disclaims any warranty or liability for your use of this information. Content Version: 11.0.426757; Current as of: November 14, 2015 * Attachments The following attachments cannot be sent through Care Everywhere. * Myelogram (Ivorian) [facility] this [facility] Phone: [phone]) 666-238203-11-2021 NotePatient Outreach (COVAMN) TIMMYVIRGIL Nicole ([id number]) 1975 F Date Time Provider Department 12/04/20 MORGAN GREENBERG During your visit today, we recorded the following information about you: Allergies As of Date: 12/04/2020 Noted Allergy Reaction PENICILLINS 06/27/2009 2 - Rash Date Reviewed: 12/28/2019 Reviewed by: Johnathan Milner - Fully Assessed Order(s):SARS-COVID VACCINE 1ST DOSE APPT [[id number]] Order #: [id number] FUTURE Prescriptions as of 12/04/2020 Sig: TIZANIDINE 4 MG CAPSULE Take 4 mg by mouth daily at b* DICYCLOMINE 20 MG TABLET Take 20 mg by mouth three dara* ASPIRIN-CALCIUM CARBONATE 81 * Take 81 mg [...] FLUTICASONE 250 MCG-SALMETERO* Take one(1) tablet two(2) dara* B-12 DOTS 500 MCG TABLET Take one(1) tablet daily. GLIPIZIDE 5 MG TABLET Take one(1) tablet three time* ULTRAM 50 MG TABLET Take one (1) or two(2) tablet* BUTALBITAL 50 MG-ACETAMINOPHE* as necessary for pain REQUIP 0.25 MG TABLET Take one(1) tablet daily. LYRICA 75 MG CAPSULE Take one(1) tablet two(2) dara* BUDEPRION SR 150 MG TABLET, S* Take [...] secondary diabetes (HCC) [*12/28/2019 Encounter Status:Closed by FATUMA JUSTICEUSER on 12/08/20[facility] Evaluation note* Diagnosis DDD (degenerative disc disease), lumbar Degeneration of lumbar or lumbosacral intervertebral disc documented in this encounter [facility] Phone: evaluation note* Diagnosis Renal stones Calculus of kidney Renal colic documented in this encounter [facility] Phone: evaluation note* Diagnosis Renal stones Calculus of kidney documented in this encounter [facility] Phone: evaluation note* Diagnosis Hepatomegaly documented in this encounter [facility] Phone: evaluation note* Diagnosis Essential hypertension Unspecified essential hypertension Chest discomfort Other chest pain Hyperlipidemia, unspecified hyperlipidemia type Tobacco abuse Tobacco use disorder documented in this encounter [facility] Phone: evaluation note* Diagnosis Abnormal LFTs Other abnormal blood chemistry documented in this encounter [facility] Phone: evaluation note* Diagnosis Other screening mammogram documented in this encounter [facility] Phone: evaluation note* Diagnosis Right upper quadrant abdominal pain Abdominal pain, right upper quadrant documented in this encounter [facility] Phone: evaluation note* Diagnosis Right upper quadrant abdominal pain Abdominal pain, right upper quadrant documented in this encounter [facility] Phone: evalwqxspg note* Diagnosis Intermittent claudication (HCC) Peripheral vascular disease, unspecified documented in this encounter [facility] Phone: evalggjwrw note* Diagnosis Colon cancer screening Special screening for malignant neoplasms, colon Fatty liver Other chronic nonalcoholic liver disease documented in this encounter [facility] Phone: evalxdyzaw note* Diagnosis Rib pain on left side- Primary Chest pain, unspecified Screening for colon cancer Special screening for malignant neoplasms, colon documented in this encounter [facility] Phone: evalxrzjyo note* Diagnosis Colon cancer screening Special screening for malignant neoplasms, colon Fatty liver Other chronic nonalcoholic liver disease Screening for colon cancer Special screening for malignant neoplasms, colon documented in this encounter [facility] Phone: evalqenquk note* Diagnosis Controlled type 2 diabetes mellitus with diabetic polyneuropathy, with long-term current use of insulin (HCC) Screening for colon cancer Special screening for malignant neoplasms, colon documented in this encounter [facility] Phone: evalkrvqum noteNo assessment information [facility] Work Phone: Evaluation note* Diagnosis Postural syncope Screening for colon cancer Special screening for malignant neoplasms, colon documented in this encounter [facility] Phone: evalkmhhvc note* Diagnosis Syncope and collapse Preop cardiovascular exam Pre-operative cardiovascular examination Dizziness Dizziness and giddiness Primary hypertension Unspecified essential hypertension Mixed hyperlipidemia Tobacco abuse counseling Counseling on substance use and abuse Screening for colon cancer Special screening for malignant neoplasms, colon documented in this encounter [facility] Phone: evalsulkrm noteNo InformationNosaint j[facility] Net[employer] Other evaluation note* Diagnosis Lumbar radiculitis Thoracic or lumbosacral neuritis or radiculitis, unspecified Screening for colon cancer Special screening for malignant neoplasms, colon documented in this encounter [facility] Phone: evaluation note* Diagnosis Tired Other malaise and fatigue Fatigue, unspecified type LAYNE (obstructive sleep apnea) Obstructive sleep apnea (adult) (pediatric) Screening for colon cancer Special screening for malignant neoplasms, colon documented in this encounter [facility] Phone: evalgvjxvu note* Diagnosis Screening for colon cancer Special screening for malignant neoplasms, colon documented in this encounter [facility] Phone: evalnvtsty note* Diagnosis Thoracic neuritis Thoracic or lumbosacral neuritis or radiculitis, unspecified documented in this encounter [facility] Phone: evaluation note* Diagnosis LAYNE (obstructive sleep apnea) Obstructive sleep apnea (adult) (pediatric) documented in this encounter [facility] Phone: evaluation note* Diagnosis Acute pneumonia- Primary [...] collapse documented in this encounter [facility] Troppin note* Diagnosis Syncope, unspecified syncope type- Primary documented in this encounter [facility] [employer]ppin note* Diagnosis Lower leg edema Edema documented in this encounter [facility] [employer]ppin note* Diagnosis Recurrent pansinusitis documented in this encounter [facility] note* Diagnosis Recurrent pansinusitis Recurrent sinusitis Unspecified sinusitis (chronic) documented in this encounter [facility] note* Diagnosis Lisfranc dislocation, left, initial encounter- Primary Closed nondisplaced fracture of metatarsal bone of left foot, unspecified metatarsal, initial encounter documented in this encounter [facility] [employer] note* Diagnosis Lisfranc dislocation, left, initial encounter- Primary documented in this encounter [facility] [employer] note* Diagnosis Charcot ankle, left- Primary Closed [...] polyneuropathy, with long-term current use of insulin ([facility]) Tobacco abuse Tobacco use disorder Essential hypertension Unspecified essential hypertension Dyslipidemia Other and unspecified hyperlipidemia Type 2 diabetes mellitus with hyperglycemia ([facility]) Type II or unspecified type diabetes mellitus without mention of complication, not stated as uncontrolled Fatty liver Other chronic nonalcoholic liver disease [facility]* Diagnosis Closed dislocation of tarsal joint of left foot, initial encounter Charcot's joint of foot, left 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) Tobacco abuse Tobacco use disorder Left foot pain Pain in limb [facility]* Diagnosis Post-op pain- Primary Other acute postoperative pain Charcot ankle, left Diabetes (HCC) Post-op pain Other acute postoperative pain Multiple closed fractures of metatarsal bone of left foot Dislocation of tarsometatarsal joint of left foot Closed dislocation of tarsometatarsal (joint) Charcot's joint of foot, left documented [facility]* Diagnosis Spinal stenosis, lumbar region with neurogenic claudication documented [facility]* Diagnosis Closed dislocation of tarsal joint of left foot, initial encounter documented [facility] this [facility]* Diagnosis History of syncope Personal history of other specified diseases Essential hypertension Unspecified essential hypertension Tobacco abuse Tobacco use disorder Mixed hyperlipidemia SOB (shortness of breath) Shortness of breath Bilateral leg edema Edema documented [facility]* Diagnosis BAILEE (acute kidney injury)- Primary Acute kidney failure, unspecified BAILEE (acute kidney injury) Acute kidney failure, unspecified Lightheaded Dizziness and giddiness Heart murmur Undiagnosed cardiac murmurs Orthostatic hypotension Severe obesity (BMI >= 40) ([facility]) Morbid obesity LAYNE (obstructive sleep apnea) Obstructive sleep apnea (adult) (pediatric) Lightheaded Dizziness and giddiness documented in [facility]* Diagnosis BAILEE (acute kidney injury) Acute kidney failure, unspecified Decreased renal function Unspecified disorder of kidney and ureter documented in this encounter [facility]* Diagnosis Lightheaded Dizziness and giddiness Dizziness Dizziness and giddiness Elevated CK Other nonspecific abnormal serum enzyme levels History of syncope Personal history of other specified diseases Essential hypertension Unspecified essential hypertension Tobacco abuse Tobacco use disorder Mixed hyperlipidemia SOB (shortness of breath) Shortness of breath documented in this encounter [facility]* Diagnosis Onset Date Resolution Status Admit Date BMI 37.0-37.9, adult acuteSeptember 2024 11:34amOsteoporosisacuteSeptember 2024 11:34am SmokeracuteSeptember 2024 11:34am [facility] Work Phone: Evaluation note* Diagnosis Kidney stone- Primary Calculus of kidney Chronic nasal congestion Other diseases of nasal cavity and sinuses Chronic allergic rhinitis Allergic rhinitis, cause unspecified Chronic sinus complaints Other symptoms involving respiratory system and chest Kidney stone Calculus of kidney documented in this encounter [facility]* Diagnosis Kidney stone- Primary Calculus of kidney documented in this encounter [facility]* Diagnosis Acute pain of right shoulder documented in this encounter [facility]* Diagnosis Acute pain of left shoulder documented in this encounter [facility] Narrative - Reported* Type Description Date Medical History Hypertension Medical Historytype II diabetesMedical HistoryPMDDMedical Historyhyperlipidemia Surgical History(R) shoulder surgerySurgical HistoryhysterectomySurgical History bladder surgerySurgical HistoryPelvic ReconstructionHospitalization HistorySee Above [facility]Light Other Hospital Discharge instructions* Attachments The following attachments cannot be sent through Care Everywhere. * Chest Pain: Musculoskeletal (Ivorian) [facility] Work Phone: Hospital Discharge instructions* Attachments The following attachments cannot be sent through Care Everywhere. 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) Tobacco abuse Type 2 diabetes mellitus with diabetic polyneuropathy, with long-term current use of insulin (HCC) Meera Mike DPM [address] [place] [address] Phone: tel: fax: [facility] Physical Therapy [address] [place] [address] Phone: tel: Referral IDStatusReasonStart DateExpiration DateVisits RequestedVisits [id number] Specialty Services Required / [facility] for visit Narrative* Imaging (Routine) - Closed SpecialtyDiagnoses / ProceduresReferred By ContactReferred To ContactRadiology Diagnoses Spinal stenosis, lumbar region with neurogenic claudication Procedures MRI LUMBAR SPINE WO Suzi Vigil, JOSSE - 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 [address] [facility] [address] [place] [address] Phone: tel: fax: Referral IDStatusReasonStart DateExpiration DateVisits RequestedVisits [id number]/11/20257/3/202611 [facility] for visit Narrative* Imaging (Routine) - Pending ReviewSpecialtyDiagnoses / ProceduresReferred By ContactReferred To Contact Radiology Diagnoses Closed dislocation of tarsal joint of left foot, initial encounter Procedures DEXA BONE DENSITY AXIAL SKELETON Meera Mike DPM [address] [facility] [address] [place] [address] Phone: tel: fax: Referral IDStatusReasonStart DateExpiration DateVisits RequestedVisits [id number] Review [facility] for visit Narrative* Physical Therapy (Routine) - AuthorizedSpecialtyDiagnoses / ProceduresReferred By ContactReferred To ContactPhysical Therapy Diagnoses Labyrinthine vertigo, bilateral Might, Vivian W, BELT PICKER - 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 [address] [place] [address] Phone: tel: fax: [facility] Physical Therapy [address] [place] [address] Phone: tel: Referral IDStatusReason[place] DateExpiration DateVisits RequestedVisits [id number] Specialty Services Required [facility] for visit Narrative* Imaging (Routine) - Open SpecialtyDiagnoses / ProceduresReferred By ContactReferred To ContactRadiology Diagnoses Lightheaded Dizziness Elevated CK History of syncope Essential hypertension Tobacco abuse Mixed hyperlipidemia SOB (shortness of breath) Procedures CTA ABDOMEN W WO CONTRAST CTA ABDOMEN PELVIS W CONTRAST CT ABDOMEN W CONTRAST Nathan Ardon MD [address] [place] [address] Phone: tel: fax: Referral IDStatusReason[place] DateExpiration DateVisits RequestedVisits [id number]/12/20259/9/202611 [facility] for visit Narrative* Imaging (Routine) - Closed SpecialtyDiagnoses / ProceduresReferred By ContactReferred To ContactRadiology Diagnoses Chronic nasal congestion Chronic allergic rhinitis Chronic sinus complaints Procedures CT SINUS WO CONTRAST Karri Moreno PA-C [address] [place] [address] Phone: tel: fax: Referral IDStatusReasonStberry[place] DateExpiration DateVisits RequestedVisits [id number]/15/202510/ [facility]nkf-pharma [facility] CenterReason for visit Narrative* Auth/CertSpecialtyDiagnoses / ProceduresReferred By ContactReferred To Contact Diagnoses Kidney stone Procedures MS LITHOTRIPSY XTRCORP SHOCK WAVE EXTRACORPOREAL SHOCK WAVE LITHOTRIPSY [place] Everett MD [address] [facility], [address] [place] [address] Phone: tel: fax: [facility] HospitalBaolab Micro[facility] [address] [place] [address] Referral IDStatusReasonStberry[place] DateExpiration DateVisits RequestedVisits [id number] [facility] for visit Narrative* Imaging (Routine) - Closed SpecialtyDiagnoses / ProceduresReferred By ContactReferred To ContactRadiology Diagnoses Acute pain of right shoulder Procedures MRI SHOULDER RIGHT WO CONTRAST Sharon Dominique MD [address] [place] [address] Phone: tel: fax: Referral IDStatusReasonSt[place] DateExpiration DateVisits RequestedVisits [id number]/22/202510/16/202611 [facility] for visit Narrative* Imaging (Routine) - Closed SpecialtyDiagnoses / ProceduresReferred By ContactReferred To ContactRadiology Diagnoses Acute pain of left shoulder Procedures MRI SHOULDER LEFT WO CONTRAST Sharon Dominique MD [address] [place] [address] Phone: tel: fax: Referral IDStatusReason[place] DateExpiration DateVisits RequestedVisits [id number]/22/202510/14/[address]26[address] [facility] Assessments Diagnosis Diabetes mellitus type 2 with [...] No Advanced Directives Records FoundDocuments on File TypeDate RecordedPatient RepresentativeExplanationAdvance Directives and Living WillAdvance Directives and Living Will09/24/2013 3:29 PMPower of AttorneyPower of Cnyuvefx60/30/2013 3:29 PMCode StatusDate ActivatedDate InactivatedComments Full Code12/21/2017 5:28 AM12/23/2017 6:35 PMFull Code04/28/2016 7:55 PM04/29/2016 5:42 PMFull Code04/27/2016 8:29 AM04/27/2016 1:04 PMFull Code12/31/2015 1:59 PM 04/27/2016 8:29 AMFull Code12/31/2015 11:18 AM12/31/2015 1:59 PMTypeDate Recorded Patient RepresentativeExplanationAdvance Directives and Living WillAdvance Directives and Living Will09/24/2013 3:29 PMPower of AttorneyPower of Hearing Care Professional 09/24/2013 3:29 PMCode StatusDate ActivatedDate InactivatedCommentsFull Code 12/21/2017 5:28 AM12/23/2017 6:35 PMFull Code04/28/2016 7:55 PM04/29/2016 5:42 PMFull Code04/27/2016 8:29 AM04/27/2016 1:04 PMFull Code12/31/2015 1:59 PM04/27/2016 8:29 AM Full Code12/31/2015 11:18 AM12/31/2015 1:59 PMTypeDate RecordedPatient RepresentativeExplanationACP-Advance DirectiveACP-Advance Ctcvvkikq12/30/2013 3:29 PMACP-Power of AttorneyACP-Power of Daugihsh62/30/2013 3:29 PMTypeDate RecordedPatient RepresentativeExplanationACP-Advance DirectiveACP-Advance Uegdvayle11/30/2013 3:29 PMACP-Power of AttorneyACP-Power of Qkbjkwwy43/30/2013 3:29 PMTypeDate RecordedPatient RepresentativeExplanationACP-Advance Directive ACP-Power of AttorneyACP-Advance Zurqjpjcu11/30/2013 3:29 PMACP-Power of Braevldw39/30/2013 3:29 PMNameRelationshipHealthcare Agent Relationship CommunicationScott KeeSparnot ogden medical centerPrimary Decision Maker* * * TypeDate RecordedPatient RepresentativeExplanationACP-Advance DirectiveACP-Power of AttorneyACP-Advance Twldpqjeu52/30/2013 3:29 PMACP-Power of Hearing Care Professional 09/24/2013 3:29 PMNameRelationshipHealthcare Agent RelationshipCommunication Yoel KeeSparnot ogden medical centerPrimary Decision Maker* * * NameRelationshipHealthcare Agent RelationshipCommunicationScott KeefeSpouse Primary Decision Maker* * * NameRelationshipHealthcare Agent RelationshipCommunicationScott KeefeSpouse Primary Decision Maker* * * NameRelationshipHealthcare Agent RelationshipCommunicationScott KeefeSpouse Primary Decision Maker* * * TypeDate RecordedPatient RepresentativeExplanationACP-Power of AttorneyACP- Advance Wmwsmfjpa27/30/2013 3:29 PMACP-Power of Fiulgawq45/30/2013 3:29 PMName RelationshipHealthcare Agent RelationshipCommunicationScott KeeSparnot ogden medical centerPrimary Decision Maker* * * TypeDate RecordedPatient RepresentativeExplanationACP-Power of AttorneyACP- Advance Vqeihiuel65/30/2013 3:29 PMACP-Power of Qbbnauyj93/30/2013 3:29 PMName RelationshipHealthcare Agent RelationshipCommunicationScott KeefeSpousePrimary Decision Maker* * * NameRelationshipHealthcare Agent RelationshipCommunicationScott KeefeSpouse Primary Decision Maker* * * TypeDate RecordedPatient RepresentativeExplanationACP-Advance Directive 09/24/2013 3:29 PMACP-Power of Hiekgmna39/30/2013 3:29 PMNameRelationship Healthcare Agent RelationshipCommunicationScott KeefeSpousePrimary Decision Maker* * * NameRelationshipHealthcare Agent RelationshipCommunicationScott KeefeSpouse Primary Decision Maker* * * NameRelationshipHealthcare Agent RelationshipCommunicationScott KeefeSpouse Primary Decision Maker* * * NameRelationshipHealthcare Agent RelationshipCommunicationScott KeefeSpouse Primary Decision Maker* * * NameRelationshipHealthcare Agent RelationshipCommunicationScott KeefeSpouse Primary Decision Maker* * * NameRelationshipHealthcare Agent RelationshipCommunicationScott KeefeSpouse Primary Decision Maker* * * NameRelationshipHealthcare Agent RelationshipCommunicationScott KeefeSpouse Primary Decision Maker* * * NameRelationshipHealthcare Agent RelationshipCommunicationScott KeefeSpouse Primary Decision Maker* * * NameRelationshipHealthcare Agent RelationshipCommunicationScott KeefeSpouse Primary Decision Maker* * * NameRelationshipHealthcare Agent RelationshipCommunicationScott KeefeSpouse Primary Decision Maker* * * NameRelationshipHealthcare Agent RelationshipCommunicationScott KeefeSpouse Primary Decision Maker* * * NameRelationshipHealthcare Agent RelationshipCommunicationScott KeefeSpouse Primary Decision Maker* * * NameRelationshipHealthcare Agent RelationshipCommunicationScott KeefeSpouse Primary Decision Maker* * * NameRelationshipHealthcare Agent RelationshipCommunicationScott KeefeSpouse Primary Decision Maker* * * TypeDate RecordedPatient RepresentativeExplanationACP-Advance Directive 09/24/2013 3:29 PMACP-Power of Ppntbkyj28/30/2013 3:29 PMNameRelationship Healthcare Agent RelationshipCommunicationScott KeefeSpousePrimary Decision Maker* * * NameRelationshipHealthcare Agent RelationshipCommunicationScott KeefeSpouse Primary Decision Maker* * * Advance Directive Response Recorded Date/ Time Advance Directives No December 08, 021 2:41pm NameRelationshipHealthcare Agent RelationshipCommunicationScott efeSparnot ogden medical center Primary Decision Maker* * * NameRelationshipHealthcare Agent RelationshipCommunicationScott [facility] Primary Decision Maker* * * NameRelationshipHealthcare Agent RelationshipCommunicationScott [facility] WestminstereSpar[facility] Primary Decision Maker* * * NameRelationshipHealthcare Agent RelationshipCommunicationScott [facility]minstereS[facility] Primary Decision Maker* * * NameRelationshipHealthcare Agent RelationshipCommunicationScott [facility] Primary Decision Maker* * * Code StatusDate ActivatedDate InactivatedCommentsFull Code12/21/2017 5:28 AM 12/23/2017 6:35 PMCode StatusDate ActivatedDate InactivatedCommentsFull Code 04/28/2016 7:55 PM04/29/2016 5:42 PMFull Code04/27/2016 8:29 AM04/27/2016 1:04 PMFull Code12/31/2015 1:59 PM04/27/2016 8:29 AMFull Code12/31/2015 11:18 AM12/31/2015 1:59 PM NameRelationshipHealthcare Agent RelationshipCommunicationScott efeSpouse Primary Decision Maker* * * NameRelationshipHealthcare Agent RelationshipCommunicationScott KeefeSpouse Primary Decision Maker* * * TypeDate RecordedPatient RepresentativeExplanationACP-Advance Directive 09/24/2013 3:29 PMACP-Power of Lqxpdezy28/30/2013 3:29 PMACP-Advance Directive 06/13/2023 12:08 PMHealth Care Power of AttorneyCode StatusDate ActivatedDate InactivatedCommentsFull Code06/11/2023 12:44 AMCode StatusDate ActivatedDate InactivatedCommentsFull Code12/21/2017 5:28 AM12/23/2017 6:35 PMFull Code04/28/2016 7:55 PM04/29/2016 5:42 PMFull Code04/27/2016 8:29 AM04/27/2016 1:04 PMFull Code 12/31/2015 1:59 PM04/27/2016 8:29 AMNameRelationshipHealthcare Agent Relationship CommunicationScott KeeSpousePrimary Decision Maker* * * Iliana KecklerChildSecondary Decision Maker* Code StatusDate ActivatedDate InactivatedCommentsFull Code06/11/2023 12:44 AM 06/14/2023 3:29 PMNameRelationshipHealthcare Agent RelationshipCommunicationScott KeefeSpousePrimary Decision Maker* * * Iliana KalicklerChildSecondary Decision Maker* NameRelationshipHealthcare Agent RelationshipCommunicationScott KeefeSpouse Primary Decision Maker* * * NameRelationshipHealthcare Agent RelationshipCommunicationScott KeefeSpouse Primary Decision Maker* * * NameRelationshipHealthcare Agent RelationshipCommunicationScott [facility] Primary Decision Maker* * * NameRelationshipHealthcare Agent RelationshipCommunicationScott [facility] Primary Decision Maker* * * Date ActivatedDate InactivatedComments06/11/2023 12:44 AM06/14/2023 3:29 PMDate ActivatedDate InactivatedComments12/21/2017 5:28 AM12/23/2017 6:35 PMDate ActivatedDate InactivatedComments04/28/2016 7:55 PM04/29/2016 5:42 PMDate Activated Date InactivatedComments04/27/2016 8:29 AM04/27/2016 1:04 PMDate ActivatedDate InactivatedComments12/31/2015 1:59 PM04/27/2016 8:29 AMNameRelationshipHealthcare Agent RelationshipCommunicationScott [facility] SystemPrimary Decision Maker* * * NameRelationshipHealthcare Agent RelationshipCommunicationScott [facility] Primary Decision Maker* * * NameRelationshipHealthcare Agent RelationshipCommunicationScott [facility] Primary Decision Maker* * * TypeDate RecordedPatient RepresentativeExplanationACP-Advance Directive 09/24/2013 3:29 PMACP-Power of Iycacsqj08/30/2013 3:29 PMACP-Advance Directive 06/13/2023 12:08 PMHealth Care Power of AttorneyDate ActivatedDate Inactivated Comments06/11/2023 12:44 AM06/14/2023 3:29 PMDate ActivatedDate Inactivated Comments12/21/2017 5:28 AM12/23/2017 6:35 PMDate ActivatedDate InactivatedComments 04/28/2016 7:55 PM04/29/2016 5:42 PMDate ActivatedDate InactivatedComments04/27/2016 8:29 AM04/27/2016 1:04 PMDate ActivatedDate InactivatedComments12/31/2015 1:59 PM 04/27/2016 8:29 AMNameRelationshipHealthcare Agent RelationshipCommunicationScott [facility] SystemPrimary Decision Maker* * * NameRelationshipHealthcare Agent RelationshipCommunicationScott [facility] Primary Decision Maker* * * NameRelationshipHealthcare Agent RelationshipCommunicationScott [facility] Primary Decision Maker* * * NameRelationshipHealthcare Agent RelationshipCommunicationScott [facility] Primary Decision Maker* * * Date ActivatedDate IitelbzclwbEerbonba29/28/2024 6:49 PMDate ActivatedDate InactivatedComments06/11/2023 12:44 AM06/14/2023 3:29 PMDate ActivatedDate InactivatedComments12/21/2017 5:28 AM12/23/2017 6:35 PMDate ActivatedDate InactivatedComments04/28/2016 7:55 PM04/29/2016 5:42 PMDate ActivatedDate InactivatedComments04/27/2016 8:29 AM04/27/2016 1:04 PMNameRelationshipHealthcare Agent RelationshipCommunicationScott [facility] SystemPrimary Decision Maker* * * Date ActivatedDate XkydbkjbqavKdyyfdsi26/28/2024 6:49 PM10 7:33 PMName RelationshipHealthcare Agent RelationshipSt. [facility] Decision Maker* * * Date ActivatedDate DzydpdhrycfBrnrayxn35/28/2024 6:49 PM10 7:33 PMDate ActivatedDate InactivatedComments06/11/2023 12:44 AM06/14/2023 3:29 PMDate ActivatedDate InactivatedComments12/21/2017 5:28 AM12/23/2017 6:35 PMDate ActivatedDate InactivatedComments04/28/2016 7:55 PM04/29/2016 5:42 PMDate Activated Date InactivatedComments04/27/2016 8:29 AM04/27/2016 1:04 PMNameRelationship Healthcare Agent RelationshipSt. [facility] Decision Maker* * * Date ActivatedDate YddgletpewqDaspxpsz87/20/2024 1:39 PMDate ActivatedDate QqvhrbqckgnNofiqlcl54/20/2024 11:28 AM09/14/2024 1:39 PMDate ActivatedDate FavagujmdtzUahcieih86/28/2024 6:49 PM10 7:33 PMDate ActivatedDate InactivatedComments06/11/2023 12:44 AM06/14/2023 3:29 PMDate ActivatedDate InactivatedComments12/21/2017 5:28 AM12/23/2017 6:35 PMNameRelationshipHealthcare Agent RelationshipSt. [facility] Decision Maker* * * Date ActivatedDate QzrncgncysfDarjhgac46/20/2024 1:39 PM09/15/2024 7:56 PMDate ActivatedDate AlawbdulcbaDhpslnsf99/20/2024 11:28 AM09/14/2024 1:39 PMDate ActivatedDate PnewweudgzrFznfwldx43/28/2024 6:49 PM10 7:33 PMDate ActivatedDate InactivatedComments06/11/2023 12:44 AM9 3:29 PMDate ActivatedDate InactivatedComments12/21/2017 5:28 AM12/23/2017 6:35 PMName RelationshipHealthcare Agent RelationshipCommunicationScott KeefeSpousePrimary Decision Maker* * * NameRelationshipHealthcare Agent RelationshipCommunicationScott KeefeSpouse Primary Decision Maker* * * NameRelationshipHealthcare Agent RelationshipCommunicationScott KeefeSpouse Primary Decision Maker* * * NameRelationshipHealthcare Agent RelationshipCommunicationScott KeefeSpouse Primary Decision Maker* * * NameRelationshipHealthcare Agent RelationshipCommunicationScott KeefeSpouse Primary Decision Maker* * * NameRelationshipHealthcare Agent RelationshipCommunicationScott KeefeSpouse Primary Decision Maker* * * NameRelationshipHealthcare Agent RelationshipCommunicationScott KeefeSpouse Primary Decision Maker* * * NameRelationshipHealthcare Agent RelationshipCommunicationScott KeefeSpouse Primary Decision Maker* * * NameRelationshipHealthcare Agent RelationshipCommunicationScott KeefeSpouse Primary Decision Maker* * * NameRelationshipHealthcare Agent RelationshipCommunicationScott KeefeSpouse Primary Decision Maker* * * NameRelationshipHealthcare Agent RelationshipCommunicationScott KeefeSpouse Primary Decision Maker* * * NameRelationshipHealthcare Agent RelationshipCommunicationScott KeefeSpouse Primary Decision Maker* * * Date ActivatedDate MtjyucvqebxNbjlqwal10/20/2024 1:39 PM09/15/2024 7:56 PMName RelationshipHealthcare Agent RelationshipCommunicationScott KeefeSpousePrimary Decision Maker* * * NameRelationshipHealthcare Agent RelationshipCommunicationScott KeefeSpouse Primary Decision Maker* * * NameRelationshipHealthcare Agent RelationshipCommunicationScott KeefeSpouse Primary Decision Maker* * * NameRelationshipHealthcare Agent RelationshipCommunicationScott KeefeSpouse Primary Decision Maker* * * NameRelationshipHealthcare Agent RelationshipCommunicationScott KeefeSpouse Primary Decision Maker* * * NameRelationshipHealthcare Agent RelationshipCommunicationScott KeefeSparnot [facility] Primary Decision Maker* * * NameRelationshipHealthcare Agent RelationshipCommunicationScott KeeSparnot [facility] medical [facility] Primary Decision Maker* * * NameRelationshipHealthcare Agent RelationshipCommunicationScott KeefeSparnot [facility] Primary Decision Maker* * * Date ActivatedDate InactivatedComments05/30/2025 4:57 AMDate ActivatedDate SwvpkcmvzafXwsttdna84/20/2024 1:39 PM09/15/2024 7:56 PMDate ActivatedDate ZmkdupkjbguYtzyisbq36/20/2024 11:28 AM09/14/2024 1:39 PMDate ActivatedDate BjvovperrycPqqmkain97/28/2024 6:49 PM10 7:33 PMDate ActivatedDate InactivatedComments06/11/2023 12:44 AM06/14/2023 3:29 PMNameRelationshipHealthcare Agent RelationshipCommunicationScott KeefeSpousePrimary Decision Maker* * * Iliana KecklerChildSecondary Decision Maker* Date ActivatedDate InactivatedComments05/30/2025 4:57 AM05/31/2025 3:25 PMName RelationshipHealthcare Agent RelationshipCommunicationScott KeefeSpousePrimary Decision Maker* * * Iliana KalicklerChildSecondary Decision Maker* NameRelationshipHealthcare Agent RelationshipCommunicationScott KeefeSpouse Primary Decision Maker* * * Iliana KalicklerChildSecondary Decision Maker* Date ActivatedDate InactivatedComments05/30/2025 4:57 AM9 3:25 PMDate ActivatedDate VkwdugekuquChqbquou21/20/2024 1:39 PM09/15/2024 7:56 PMDate ActivatedDate SsguysuonkoSazqvlyr76/20/2024 11:28 AM09/14/2024 1:39 PMDate ActivatedDate TfgictdwwggHpudzkwn91/28/2024 6:49 PM10 7:33 PMDate ActivatedDate InactivatedComments06/11/2023 12:44 AM06/14/2023 3:29 PMName RelationshipHealthcare Agent RelationshipCommunicationScott KeefeSpousePrimary Decision Maker* * * Iliana KecklerChildSecondary Decision Maker* Advance Directive Response Recorded Date/ Time Advance Directives No December 08, 2 021 3:41pm NameRelationshipHealthcare Agent RelationshipCommunicationScott KeefeSpouse Primary Decision Maker* * * Iliana KalicklerChildSecondary Decision Maker* NameRelationshipHealthcare Agent RelationshipCommunicationScott KeefeSpouse Primary Decision Maker* * * Iliana KecklerChildSecondary Decision Maker* NameRelationshipHealthcare Agent RelationshipCommunicationScott KeefeSpouse Primary Decision Maker* * * Iliana GreenChildSecondary Decision Maker* Date ActivatedDate CmqqeadzaevDmdpiifj34/28/2025 6:31 AMDate ActivatedDate InactivatedComments05/30/2025 4:57 AM05/31/2025 3:25 PMDate ActivatedDate SgiqmugpzsdDnxcnaxk10/20/2024 1:39 PM09/15/2024 7:56 PMDate ActivatedDate VuvemggojchZmjitfyo50/20/2024 11:28 AM09/14/2024 1:39 PMDate ActivatedDate CghzbnavlvsCefrbbfu71/28/2024 6:49 PM10 7:33 PMNameRelationship Healthcare Agent RelationshipCommunicationScoExcelsior Springs Medical CenterPrimary Decision Maker* * * Iliana GreenChildSecondary Decision Maker* Date ActivatedDate HsjmkmbxkugMaopakin55/28/2025 6:31 AM07/23/2025 11:42 AMDate ActivatedDate InactivatedComments05/30/2025 4:57 AM05/31/2025 3:25 PMDate Activated Date AkokudhcdcfGelwhqbs54/20/2024 1:39 PM09/15/2024 7:56 PMDate ActivatedDate XpwijohlqyqQzsgginx02/20/2024 11:28 AM09/14/2024 1:39 PMDate ActivatedDate OwkncojyplrFtuwyzwe56/28/2024 6:49 PM10 7:33 PMDate ActivatedDate OycupmxaiujSqsdqntb19/28/2025 6:31 AM07/23/2025 11:42 AMNameRelationship Healthcare Agent RelationshipCommunicationSco KaliHCA Midwest DivisionPrimary Decision Maker* * * Iliana GreenChildSecondary Decision Maker* NameRelationshipHealthcare Agent RelationshipCommunicationScoExcels[facility] Medical Center Primary Decision Maker* * * Iliana GreenMemorial Medical CenterSecondary Decision Maker* Reason for Referral StatusReasonSpecialtyDiagnoses / ProceduresReferred By ContactReferred To ContactOpenRadiology Diagnoses Abdominal pain, unspecified abdominal location Procedures CT ABDOMEN PELVIS W IV CONTRAST Additional Contrast? Oral Curtis Jean MD [address] [place] [address] StatusReasonSpecialtyDiagnoses / ProceduresReferred By ContactReferred To ContactAuthorizedRadiology Diagnoses Generalized abdominal pain Procedures NM GASTRIC EMPTYING HC NM GASTRIC EMPTYING STUDY Curtis Jean MD [address] [place] [id number] [address] [place], [place] StatusReasonSpecialtyDiagnoses / ProceduresReferred By ContactReferred To ContactOpenRadiology Diagnoses Generalized abdominal pain Procedures NM GASTRIC EMPTYING Vivian Lemos, BELT PICKER - 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 [address] [place] [address] StatusReasonSpecialtyDiagnoses / ProceduresReferred By ContactReferred To ContactClosedRadiology Diagnoses Traumatic injury of head, initial encounter Scalp tenderness S09.90XA (ICD-10-CM) - Traumatic injury of head, initial encounter R51.9 (ICD-10-CM) - Scalp tenderness Procedures CT HEAD WO CONTRAST Vivian Lemso, BELT PICKER - 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 [address] [place] [address] StatusReasonSpecialtyDiagnoses / ProceduresReferred By ContactReferred To ContactAuthorizedCardiology Diagnoses Essential hypertension Chest discomfort Hyperlipidemia, unspecified hyperlipidemia type Tobacco abuse Procedures Echo stress test HC NM SEST. REST STRESS MULT Nathan Ardon MD [address] [place] [address] [place] [address] StatusReasonSpecialtyDiagnoses / ProceduresReferred By ContactReferred To ContactClosedRadiology Diagnoses Other screening mammogram Procedures ALEJANDRO MARISOL DIGITAL SCREEN BILATERAL Vivian Lemos BELT PICKER - 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 [address] [place] [address] StatusReasonSpecialtyDiagnoses / ProceduresReferred By ContactReferred To ContactNot Required - RecondoRadiology Diagnoses Right upper quadrant abdominal pain Procedures US GALLBLADDER RUQ HC US ABDOMINAL LIMITED Flip Dodson APRN - 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 [address] [place] [address] SpecialtyDiagnoses / ProceduresReferred By ContactReferred To ContactRadiology Diagnoses Intermittent claudication (HCC) Procedures VL LOWER EXTREMITY ARTERIAL SEGMENTAL PRESSURES W PPG Vivian Lemos BELT PICKER - 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 [address] [place] [address] Referral IDStatusReasonStart DateExpiration DateVisits RequestedVisits [id number]/29/20226/828673LgjhaytuaVrlwxqadw / Procedures Referred By ContactReferred To ContactRadiology Diagnoses Colon cancer screening Fatty liver Procedures LIVER Tari Curtis MD [address] [place] [address] Referral IDStatusReasonStart DateExpiration DateVisits RequestedVisits [id number]/31/202210/[id number] / Procedures Referred By ContactReferred To Contact Diagnoses Postural syncope R55 (ICD-10-CM) - Postural syncope Procedures Tilt Table Test Tilt Table Test MS CARDIOVASCULAR FUNCTION EVAL W/TILT TABLE W/MNTR 77124 - MS CARDIOVASCULAR FUNCTION EVAL W/TILT TABLE W/MNTR Vivian Lemos BELT PICKER - 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 [address] [place] [address] Referral IDStatusReason[place] DateExpiration DateVisits RequestedVisits [id number]/29/202212/039014AamdzlztqSgjozymea / Procedures Referred By ContactReferred To Contact Diagnoses Syncope and collapse Preop cardiovascular exam Dizziness Primary hypertension Mixed hyperlipidemia Tobacco abuse counseling Procedures Continuous cardiac monitoring, >2 up to 14 days Nathan Ardon MD [address] [place] [address] [place] [address] Referral IDStatusCent[facility] DateExpiration DateVisits RequestedVisits [id number] Review/761238NatunlmyqFtvkhtjrj / ProceduresReferred By ContactReferred To ContactRadiology Diagnoses Lumbar radiculitis Procedures MRI LUMBAR SPINE WO CONTRAST Leslie Gamez, BELT PICKER - MAILING MANAGER [address] [place] [address] Referral IDStatSy[facility] DateExpiration DateVisits RequestedVisits [id number]/30/20233/[id number] / Procedures Referred By ContactReferred To [facility] Diagnoses Tired Fatigue, unspecified type LAYNE (obstructive sleep apnea) Procedures Home sleep study Nathan Ardon MD [address] [place] [address] [place] [address] Referral IDStatSycamore Medical Center DateExpiration DateVisits RequestedVisits [id number]/14/20232/[id number] / Procedures Referred By ContactReferred To ContactRadiology Diagnoses Thoracic neuritis M54.14 (ICD-10-CM) - Thoracic neuritis Procedures MRI THORACIC SPINE WO CONTRAST CHG MRI SPINAL CANAL THORACIC W/O CONTRAST MATRL 04506 - CHG MRI SPINAL CANAL THORACIC W/O CONTRAST MATRL Terry Brady MD [address] [place], [address] [address] Referral IDStatusReasonStart DateExpiration DateVisits RequestedVisits [id number]/[id number] / Procedures Referred By ContactReferred To [facility] Diagnoses LAYNE (obstructive sleep apnea) Procedures Sleep study with PAP titration Nathan Ardon MD [address] [place] [address] [place] [address] Referral IDStatusReasonStart DateExpiration DateVisits RequestedVisits [id number]/9/20234/[id number] / Procedures Referred By ContactReferred To ContactRadiology Diagnoses Recurrent sinusitis Procedures CT SINUS WO CONTRAST Vivian Lemos, BELT PICKER - 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 [address] [place] [address] Referral IDStatusReasonStart DateExpiration DateVisits RequestedVisits [id number]/7/202411/[id number] / Procedures Referred By ContactReferred To ContactRadiology Diagnoses Recurrent pansinusitis Procedures CT SINUS W CONTRAST Vivian Lemos, BELT PICKER - 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 [address] [place] [address] Referral IDStatusReasonStart DateExpiration DateVisits RequestedVisits [id number]/1/20249/126750WzmmzpohrYdkjwclfw / Procedures Referred By ContactReferred To ContactRadiology Diagnoses Closed dislocation of tarsal joint of left foot, initial encounter Charcot's joint of foot, left 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) Tobacco abuse Left foot pain Procedures CT FOOT LEFT WO CONTRAST Meera Mike DPM [address] [place] [address] Referral IDStatusReasonStart DateExpiration DateVisits RequestedVisits [id number]/5/20241/ Summary Purpose Family History No Family History Records Found Relationship Condition Age at Onset Recorded Date/T barry father Diabetes mellitus Unknown Heart diseaseUnknownVascular disorderUnknownChronic obstructive pulmonary diseaseUnknownNot SpecifiedDiabetes mellitusUnknownbrotherLiver problemUnknown Relationship Condition Age at Onset Recorded Date/T barry father Diabetes mellitus Unknown Heart diseaseUnknownVascular disorderUnknownChronic obstructive pulmonary diseaseUnknownmotherDiabetes mellitusUnknownbrotherLiver problemUnknown Chief Complaint and Reason for Visit Chief Complaint Failed Implant Chief Complaint Failed Implant Failed Implant Chief Complaint Admit Date TB CONSULT SUZI BRUCE AJITH HIP PAIN WX T BH June 24, 2025 11:34am Reason for Visit Admit Date BMI 37.0-37.9, adult June 24 11:34am Osteoporosis June 24, 2025 11:34am Smoker June 24, 2025 11:34am Additional Source Comments Reason for Visit (unrecogniz ed section and content) StatusReasonSpecialtyDiagnoses / ProceduresReferred By ContactReferred To ContactClosedRadiology Diagnoses Generalized abdominal pain Procedures CT ABD/PEL W CONT Curtis Jean MD [address] [place] [address] [facility] [address] Scan [address] [place] [address] StatusReasonSpecialtyDiagnoses / ProceduresReferred By ContactReferred To ContactOpenRadiology Diagnoses Thyromegaly Procedures US HEAD NECK SOFT TISSUE THYROID US THYROID [facility] US,HEAD/NECK TISSUES,B-SCAN/REAL TIME Hever Olivera PA [address] [place] [address] StatusReasonSpecialtyDiagnoses / ProceduresReferred By ContactReferred To ContactAuthorizedRadiology Diagnoses Functional dyspepsia Procedures [facility] GASTRIC EMPTYING STUDY Curtis Jean MD [address] [facility] [place] [address] StatusReasonSpecialtyDiagnoses / ProceduresReferred By ContactReferred To ContactClosedRadiology Diagnoses Generalized abdominal pain Procedures NM GASTRIC EMPTYING HC NM GASTRIC EMPTYING STUDY Curtis Jean MD [address] [place] [address] [place] StatusReasonSpecialtyDiagnoses / ProceduresReferred By ContactReferred To ContactClosedRadiology Diagnoses Traumatic injury of head, initial encounter Scalp tenderness S09.90XA (ICD-10-CM) - Traumatic injury of head, initial encounter R51.9 (ICD-10-CM) - Scalp tenderness Procedures CT HEAD WO CONTRAST Vivian Lemos W, BELT PICKER - 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 [address] [place] [address] StatusReasonSpecialtyDiagnoses / ProceduresReferred By ContactReferred To ContactClosedRadiology Diagnoses DDD (degenerative disc disease), lumbar Procedures CT LUMBAR SPINE W CONTRAST FL MYELOGRAM LUMBOSACRAL S&I IR MYELOGRAM LUMBOSACRAL IR MYELOGRAM LUMBOSACRAL Jasper Cleveland MD [facility] [place] [address] StatusReasonSpecialtyDiagnoses / ProceduresReferred By ContactReferred To ContactAuthorizedCardiology Diagnoses Essential hypertension Chest discomfort Hyperlipidemia, unspecified hyperlipidemia type Tobacco abuse Procedures Echo stress test HC NM SEST. REST STRESS MULT Nathan Ardon MD [address] [place] [address] [place] [address] StatusReasonSpecialtyDiagnoses / ProceduresReferred By ContactReferred To ContactPending ReviewStress Lab Diagnoses Essential (primary) hypertension Other chest pain Hyperlipidemia, unspecified Tobacco use Procedures CHG MYOCARDIAL SPECT MULTIPLE STUDIES Nathan Ardon MD [address] [place] [address] [place] [address] [facility] Stress Lab [address] [place] [address] StatusReasonSpecialtyDiagnoses / ProceduresReferred By ContactReferred To ContactClosedRadiology Diagnoses Other screening mammogram Procedures ALEJANDRO MARISOL DIGITAL SCREEN BILATERAL Vivian Lemos APRN - 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 [address] [place] [address] StatusReasonSpecialtyDiagnoses / ProceduresReferred By ContactReferred To ContactNot Required - RecondoRadiology Diagnoses Right upper quadrant abdominal pain Procedures US GALLBLADDER RUQ HC US ABDOMINAL LIMITED Flip Dodson APRN - CNP [address] [place] [address] SpecialtyDiagnoses / ProceduresReferred By ContactReferred To ContactRadiology Diagnoses Intermittent claudication (HCC) Procedures VL LOWER EXTREMITY ARTERIAL SEGMENTAL PRESSURES W PPG Vivian Lemos APRN - 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 [address] [place] [address] Referral IDStatusReasonStart DateExpiration DateVisits RequestedVisits [id number]/29/20226/558744QlcuskGlunxlehBag Pain (injury)Left sided, ongoing since Tuesday, denies injury, hurts to take a deep breathSpecialty Diagnoses / ProceduresReferred By ContactReferred To ContactRadiology Diagnoses Colon cancer screening Fatty liver Procedures US LIVER Tari Curtis MD [address] [facility] [place] [address] Referral IDStatusReasonStart DateExpiration DateVisits RequestedVisits [id number]/31/202210/31/[id number] / Procedures Referred By ContactReferred To Contact Diagnoses Postural syncope R55 (ICD-10-CM) - Postural syncope Procedures Tilt Table Test Tilt Table Test MS CARDIOVASCULAR FUNCTION EVAL W/TILT TABLE W/MNTR 10853 - MS CARDIOVASCULAR FUNCTION EVAL W/TILT TABLE W/MNTR Might, Vivian W, BELT PICKER - 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 [address] [place] [address] Referral IDStatusReasonStberry[place] DateExpiration DateVisits RequestedVisits [id number]/29/202212/797721ZraewqmjlVrgfhxmfj / Procedures Referred By ContactReferred To Contact Diagnoses Syncope and collapse Preop cardiovascular exam Dizziness Primary hypertension Mixed hyperlipidemia Tobacco abuse counseling Procedures Continuous cardiac monitoring, >2 up to 14 days Nathan Ardon MD [address] [place] [address] Referral IDStatusReason[place] DateExpiration DateVisits RequestedVisits [id number] Review/[id number] / ProceduresReferred By ContactReferred To ContactRadiology Diagnoses Lumbar radiculitis Procedures MRI LUMBAR SPINE WO CONTRAST Leslie Gamez, BELT PICKER - MAILING MANAGER [address] [place] [address] Referral IDStatusasonMount [place] DateExpiration DateVisits RequestedVisits [id number]/30/20233/[id number] / Procedures Referred By ContactReferred To [facility] Diagnoses Tired Fatigue, unspecified type LAYNE (obstructive sleep apnea) Procedures Home sleep study Nathan Ardon MD [address] [place] [address] [place] [address] Referral IDStatReason[place] DateExpiration DateVisits RequestedVisits [id number]/14/20232/256628SyleaawaaEpdizkldb / Procedures Referred By ContactReferred To Contact Diagnoses Screening for colon cancer SCREENING Procedures MS COLON CA SCRN NOT HI RSK IND MS COLONOSCOPY FLX DX W/COLLJ SPEC WHEN PFRMD MS COLONOSCOPY W/BIOPSY SINGLE/MULTIPLE MS COLSC FLX W/RMVL OF TUMOR POLYP LESION SNARE TQ COLORECTAL CANCER SCREENING, NOT HIGH RISK Tari Curtis MD [address] [place] [address] [place] [address] [facility] [address] [place] [address] Referral IDStatusasonMount [place] DateExpiration DateVisits RequestedVisits [id number] / ProceduresReferred By ContactReferred To ContactRadiology Diagnoses Thoracic neuritis M54.14 (ICD-10-CM) - Thoracic neuritis Procedures MRI THORACIC SPINE WO CONTRAST CHG MRI SPINAL CANAL THORACIC W/O CONTRAST MATRL 00035 - CHG MRI SPINAL CANAL THORACIC W/O CONTRAST DEEPIKAL Terry Brady MD [address] [facility], [address] [place] [address] Referral IDStatusReasonart DateExpiration DateVisits RequestedVisits [id number]/20234/[id number] / Procedures Referred By ContactReferred To [facility] Diagnoses LAYNE (obstructive sleep apnea) Procedures Sleep study with PAP titration Nathan Ardon MD [address] [place] [address] Referral IDStatusLucidity (MemberRx)[place] DateExpiration DateVisits RequestedVisits [id number]/9/20234/[id number] of ConsciousnessX3 since 1900 with each episode lasting approx [...] type 2 diabetic with last reported FSBS 203.SpecialtyDiagnoses / ProceduresReferred By Contact Referred To Contact Diagnoses Pneumonia of both lower lobes due to infectious organism Recurrent syncope Acute pneumonia Emanuel Danielle MD [address] [place] [address] [facility] [address] [place] [address] Referral IDStatusReasonStart DateExpiration DateVisits RequestedVisits [id number] of ConsciousnessPatient was recently discharged, patient today had syncope episode.SpecialtyDiagnoses / Procedures Referred By ContactReferred To ContactRadiology Diagnoses Recurrent pansinusitis Procedures CT SINUS W CONTRAST Might, Vivian W, BELT PICKER - 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 [address] [place] [address] Referral IDStatusReason[place] DateExpiration DateVisits RequestedVisits [id number]/1/20249/[id number] InjuryPatient states she was up walking around and heard a few pops in the left foot. Patient states thatshe may feel that she broke something. Complains of increased new numbness and discoloration.ReasonCommentsFoot InjuryLSpecialtyDiagnoses / ProceduresReferred By ContactReferred To Contact Diagnoses Charcot ankle, left Closed dislocation of tarsal joint of left foot Charcot ankle, left [M14.672] Closed dislocation of tarsal joint of left foot [S93.315A] Procedures MS PRQ SKEL FIXJ METAR FX W/MANJ MS APPLICATION UNIPLANE EXTERNAL FIXATION SYSTEM FOOT CLOSED REDUCTION PINNING ANKLE EXTERNAL FIXATOR APPLICATION (ORTHOFIX) Meera Mike DPM [address] [facility] [address] [facility] [address] [place] [address] Referral IDStatusKeishaasonMount Ple[place] DateExpiration DateVisits RequestedVisits [id number] / ProceduresReferred By ContactReferred To ContactRadiology Diagnoses Closed dislocation of tarsal joint of left foot, initial encounter Charcot's joint of foot, left 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) Tobacco abuse Left foot pain Procedures CT FOOT LEFT WO CONTRAST Meera Mike DPM [address] [place] [address] Referral IDStatusReasonStart DateExpiration DateVisits RequestedVisits [id number]/5/20241/[id number] / Procedures Referred By ContactReferred To Contact Diagnoses Charcot ankle, left Diabetes (HCC) Charcot ankle, left [M14.672] Diabetes (HCC) [E11.9] Procedures MS REMOVAL EXTERNAL FIXATION SYSTEM UNDER ANES MS ARTHRODESIS SUBTALAR MS ARTHRD MIDTARSL/TARSOMETATARSAL MULT/TRANSVRS REMOVE EXTERNAL FIXATOR LEFT FOOT SUBTALAR JOINT FUSION; FUSION MIDFOOT MULTIPLE JOINTS LEFT FOOT SUBTALAR JOINT FUSION; FUSION MIDFOOT MULTIPLE JOINTS LEFT FOOT Meera Mike, DPM [address] [facility] [address] [place] [address] [facility] [address] [place] [address] Referral IDStatusReason[place] DateExpiration DateVisits RequestedVisits [id number]aFz states she was here earlier to get an allergy shot and they refused to give it to her due to herlow bp. They contacted Dr. Ardon and he told her to stop taking her lisinopril, lasix, and metoprolol. Patient states she does not feel right . States she is lightheaded and feels like she is drunk.SpecialtyDiagnoses / ProceduresReferred By Contact Referred To Contact Diagnoses BAILEE (acute kidney injury) Emanuel Danielle MD [address] [facility]. [address] [place] [address] Phone: tel: fax: [facility] [address] [place] [address] Referral IDStatusReason[place] DateExpiration DateVisits RequestedVisits [id number] INFORMATION SOURCE (unrecogn ized section and content) DATE CREATED AUTHOR 10/24/2021 [facility] DATE CREATED AUTHOR AUTHOR'S ORGANIZ ATION 11/05/2021 [facility] DATE CREATED AUTHOR AUTHOR'S ORGANIZ ATION 10/30/2022 [facility] DATE CREATED AUTHOR AUTHOR'S ORGANIZ ATION 02/09/2023 [facility] DATE CREATED AUTHOR AUTHOR'S ORGANIZ ATION 09/20/2024 [facility] DATE CREATED AUTHOR AUTHOR'S ORGANIZ ATION 07/20/2025 [facility] DATE CREATED AUTHOR AUTHOR'S ORGANIZ ATION 08/05/2025 [facility] DATE CREATED AUTHOR AUTHOR'S ORGANIZ ATION 08/06/2025 [facility] Care Teams (unrecognized sec tion and content) Team Status: Active Member Role Status Dates NON STAFF Primary Care Provider Active Team Status: Inactive Member Role Status Dates NON STAFF Primary Care Provider Active Start: June 24, 2025 End: June 24, 2025JuLuis Crandall ProviderActiveStart: June 24, 2025 End: June 24, 2025Team MemberRelationshipSpecialtyStart DateEnd Date Vivian APRN [facility] PCP - GeneralFamily Nurse Practitioner05/10/18Team MemberRelationshipSpecialty Start DateEnd Date Vivian APRN - 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 PCP - GeneralFamily Nurse Practitioner05/10/18Team MemberRelationshipSpecialty Start DateEnd Date Vivian Lemos APRN - 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 PCP - GeneralFamily Nurse Practitioner05/10/18Team MemberRelationshipSpecialty Start DateEnd Date Vivian Lemos APRN - 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 PCP - GeneralFamily Nurse Practitioner05/10/18Team MemberRelationshipSpecialty Start DateEnd Date Vivian Lemos APRN - 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 PCP - GeneralFamily Nurse Practitioner8/15/18Team MemberRelationshipSpecialty Start DateEnd Date Might, Vivian Combs APRN - 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 PCP - GeneralFamily Nurse Practitioner05/10/18 MemberRelationshipSpecialty Start DateEnd Date Might, Vivian Combs APRN - [facility] PCP - GeneralFamily Nurse Practitioner05/10/18Team MemberRelationshipSpecialty Start DateEnd Date Might, Vivian Combs APRN - [facility] PCP - GeneralFamily Nurse Practitioner05/10/18 MemberRelationshipSpecialty Start DateEnd Date Might, Vivian Combs APRN - [facility] PCP - GeneralFamily Nurse Practitioner05/10/18 MemberRelationshipSpecialty Start DateEnd Date Might, Vivian Combs APRN - [facility] PCP - GeneralFamily Nurse Practitioner05/10/18 MemberRelationshipSpecialty Start DateEnd Date Might, Vivian Combs BELT PICKER - [facility] PCP - GeneralFamily Nurse Practitioner05/10/18 MemberRelationshipSpecialty Start DateEnd Date Might, Vivian Combs BELT PICKER - [facility] PCP - GeneralFamily Nurse Practitioner05/10/18Team MemberRelationshipSpecialty Start DateEnd Date Might, Vivian Combs BELT PICKER - 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 PCP - GeneralFamily Nurse Practitioner05/10/18Team MemberRelationshipSpecialty Start DateEnd Date Might, Vivian Combs BELT PICKER - 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 PCP - GeneralFamily Nurse Practitioner05/10/18Team MemberRelationshipSpecialty Start DateEnd Date Might, Vivian Combs, BELT PICKER - 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 PCP - Generalmily Nurse Practitioner05/10/18Team MemberRelationshipSpecialty Start DateEnd Date Might, Vivian Combs BELT PICKER - 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 PCP - Generalmily Nurse Practitioner05/10/18Team MemberRelationshipSpecialty Start DateEnd Date Might, Vivian Combs BELT PICKER - 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 PCP - Generalmily Nurse Practitioner05/10/18Team MemberRelationshipSpecialty Start DateEnd Date Might, Vivian Combs BELT PICKER - 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 PCP - Generalmily Nurse Practitioner05/10/18 Team Status: Inactive Member Role Status Dates NON STAFF Primary Care Provider Active Oscar Bartlettformerly [facility] ProviderActiveTeam MemberRelationshipSpecialtyStart DateEnd Date Might, Vivian Combs BELT PICKER - 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 [facility]05/10/18Te MemberRelationshipSpecialty Start DateEnd Date Might, Vivian Combs BELT PICKER - 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 PCP - Generalmily Nurse Practitioner05/10/18Team MemberRelationshipSpecialty Start DateEnd Date Might, Vivian Combs BELT PICKER - 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 PCP - GeneralFamily Nurse Practitioner05/10/18Team MemberRelationshipSpecialty Start DateEnd Date Might, Vivian Combs BELT PICKER - 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 PCP - Generalmily Nurse Practitioner05/10/18Team MemberRelationshipSpecialty Start DateEnd Date Might, Vivian Combs BELT PICKER - 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 PCP - Generalmily Nurse Practitioner05/10/18Team MemberRelationshipSpecialty Start DateEnd Date Vivian Lemos APRN [facility] PCP - Generalmily Nurse Practitioner05/10/18Team MemberRelationshipSpecialty Start DateEnd Date Vivian Lemos APRN [facility] PCP - Generalmily Nurse Practitioner05/10/18Team MemberRelationshipSpecialty Start DateEnd Date Vivian Lemos APRN [facility] - [facility]05/10/18Team MemberRelationshipSpecialty Start DateEnd Date Vivian Lemos APRN [facility] - [facility] Nurse Practitioner05/10/18Team MemberRelationshipSpecialty Start DateEnd Date Vivian Lemos APRN [facility] - [facility] Nurse Practition[facility]05/10/18Team MemberRelationshipSpecialty Start DateEnd Date Vivian Lemos APRN [facility] PCP - Generalmily Nurse Practitioner05/10/18Team MemberRelationshipSpecialty Start DateEnd Date Vivian Lemos APRN [facility] PCP - Generalmily Nurse Practitioner05/10/18Team MemberRelationshipSpecialty Start DateEnd Date Vivian Lemos APRN [facility] PCP - GeneralFamily Nurse Practitioner05/10/18Team MemberRelationshipSpecialty Start DateEnd Date Vivian Lemos APRN [facility] PCP - GeneralFamily Nurse Practitioner05/10/18Team MemberRelationshipSpecialty Start DateEnd Date Vivian Lemos APRN [facility] PCP - Generalmily Nurse Practitioner05/10/18Team MemberRelationshipSpecialty Start DateEnd Date Vivian Lemos APRN [facility] - [facility] Nurse Practition[facility]05/10/18Team MemberRelationshipSpecialty Start DateEnd Date Vivian Lemos APRN [facility] PCP - [facility]ly Nurse Practitioner05/10/18Team MemberRelationshipSpecialty Start DateEnd Date Vivian Lemos APRN [facility] PCP - [facility] Nurse Practitioner05/10/18Team MemberRelationshipSpecialty Start DateEnd Date Vivian Lemos APRN [facility] PCP - Generalmily Nurse Practitioner05/10/18Team MemberRelationshipSpecialty Start DateEnd Date Vivian Lemos APRN [facility] PCP - Generalmily Nurse Practitioner05/10/18Team MemberRelationshipSpecialty Start DateEnd Date Vivian Lemos APRN [facility] PCP - GeneralFamily Nurse Practitioner05/10/18Team MemberRelationshipSpecialty Start DateEnd Date Vivian Lemos APRN [facility] PCP - GeneralFamily Nurse Practitioner05/10/18Team MemberRelationshipSpecialty Start DateEnd Date Vivian Lemos APRN [facility] PCP - Generalmily Nurse Practitioner05/10/18Team MemberRelationshipSpecialty Start DateEnd Date Vivian Lemos APRN [facility] - [facility] Nurse Practition[facility]05/10/18Team MemberRelationshipSpecialty Start DateEnd Date Vivian Lemos APRN [facility] P[facility] - [facility] Nurse Practitioner05/10/18Team MemberRelationshipSpecialty Start DateEnd Date Vivian Lemos APRN [facility] PCP - Generalmily Nurse Practitioner05/10/18Team MemberRelationshipSpecialty Start DateEnd Date Vivian Lemos APRN [facility] PCP - Generalmily Nurse Practitioner05/10/18Team MemberRelationshipSpecialty Start DateEnd Date Vviian Lemos APRN [facility] PCP - Generalmily Nurse Practitioner05/10/18Team MemberRelationshipSpecialty Start DateEnd Date Vivian Lemos APRN [facility] PCP - GeneralFamily Nurse Practitioner05/10/18Team MemberRelationshipSpecialty Start DateEnd Date Vivian Lemos APRN [facility] PCP - GeneralFamily Nurse Practitioner05/10/18Team MemberRelationshipSpecialty Start DateEnd Date Viivan Lemos APRN [facility] PCP - GeneralFamily Nurse Practitioner05/10/18Team MemberRelationshipSpecialty Start DateEnd Date Vivian Lemos APRN [facility] PCP - Generalmily Nurse Practitioner05/10/18Team MemberRelationshipSpecialty Start DateEnd Date Vivian Lemos APRN [facility] PCP - GeneralFamily Nurse Practitioner05/10/18Team MemberRelationshipSpecialty Start DateEnd Date Vivian Lemos APRN [facility] PCP - GeneralFamily Nurse Practitioner05/10/18Team MemberRelationshipSpecialty Start DateEnd Date Vivian Lemos APRN [facility] PCP - GeneralFamily Nurse Practitioner05/10/18Team MemberRelationshipSpecialty Start DateEnd Date Vivian Lemos APRN [facility] PCP - GeneralFamily Nurse Practitioner05/10/18Team MemberRelationshipSpecialty Start DateEnd Date Vivian Lemos APRN [facility] PCP - GeneralFamily Nurse Practitioner05/10/18Team MemberRelationshipSpecialty Start DateEnd Date Vivian Lemos APRN [facility] PCP - GeneralFamily Nurse Practitioner05/10/18Team MemberRelationshipSpecialty Start DateEnd Date Vivian Lemos APRN [facility] PCP - GeneralFamily Nurse Practitioner05/10/18Team MemberRelationshipSpecialty Start DateEnd Date Vivian Lemos APRN [facility] PCP - Generalmily Nurse Practitioner05/10/18Team MemberRelationshipSpecialty Start DateEnd Date Vivian Lemos APRN [facility] - [facility] Nurse Practitioner05/10/18Team MemberRelationshipSpecialty Start DateEnd Date Vivian Lemos APRN [facility] PCP - GeneralFamily Nurse Practitioner05/10/18Team MemberRelationshipSpecialty Start DateEnd Date Vivian Lemos APRN [facility] PCP - GeneralFamily Nurse Practitioner05/10/18Team MemberRelationshipSpecialty Start DateEnd Date Vivian Lemos APRN [facility] PCP - Generalmily Nurse Practitioner05/10/18Team MemberRelationshipSpecialty Start DateEnd Date Vivian Lemos APRN [facility] PCP - GeneralFamily Nurse Practitioner05/10/18Te MemberRelationshipSpecialty Start DateEnd Vivian Lemos [facility] PCP - GeneralFamily Nurse Practitioner05/10/18Te MemberRelationshipSpecialty Start DateEnd Date Vivian Lemos [facility] PCP - GeneralFamily Nurse Practitioner05/10/18 Ordered Prescriptions (unrec ognized section and content) PrescriptionSigDispensedRefillsStart DateEnd Date cyclobenzaprine (FLEXERIL) 10 MG tablet Take 1 tablet by mouth nightly as needed for Muscle spasms 10 tablet /rescriptionSigDispensedRefillsStart DateEnd predniSONE (DELTASONE) 10 MG tablet 4 tabs daily for 3 days, 3 tabs daily for 3 days, 2 tabs daily for 3 days, 1 tab daily for 3 days 30 tablet levoFLOXacin (LEVAQUIN) 750 MG tablet Take 1 tablet by mouth daily for 7 days 7 tablet guaiFENesin (MUCINEX) 600 MG extended release tablet Take 1 tablet by mouth 2 times daily for 7 days 14 tablet /rescriptionSigDispensedRefillsStart DateEnd doxycycline hyclate (VIBRA-TABS) 100 MG tablet Take 1 tablet by mouth daily for 10 days 10 tablet oxyCODONE-acetaminophen (PERCOCET) 5-325 MG per tablet Indications:Post-op painTake 1 tablet by mouth in the morning and at bedtime for 8 days. Intended supply: 5 days. Take lowest dose possible to manage pain Max Daily Amount: 2 tablets 16 tablet /04/2024 acetaminophen (TYLENOL) 500 MG tablet Take 1 tablet by mouth 3 times daily for 14 days 42 tablet /4PrescriptionSigDispensedRefillsStart DateEnd Date doxycycline hyclate (VIBRA-TABS) 100 MG tablet Take 1 tablet by mouth 2 times daily for 7 days 14 tablet / aspirin (CLAUDETTE ASPIRIN) 325 MG tablet Take 1 tablet by mouth daily 30 tablet HYDROcodone-acetaminophen (NORCO) 5-325 MG per tablet Indications:Post-op painTake 1 tablet by mouth every 6 hours as needed for Pain for up to 7 days. Intended supply: 5 days. Take lowest dose possible to manage pain Max Daily Amount: 4 tablets 28 tablet /rescriptionSigDispense QuantityRefillsLast FilledStart Date End Date methocarbamol (ROBAXIN) 500 MG tablet Take 1 tablet by mouth 3 times daily 90 tablet aspirin 81 MG EC tablet Take 1 tablet by mouth daily 30 tablet Scheduled Active and Recently Administ ered Medications (unrecognized section and content) Medication Order//07/2022 HYDROcodone-acetaminophen (NORCO) 5-325 MG per tablet 1 tablet (COMPLETED) 1 tablet, Oral, ONCE, 1 dose, On Tue08/06/22 at 1715 * 1715 (Given - Provider: Mario Alberto Reeder RN) morphine injection 4 mg (COMPLETED) 4 mg, IntraVENous, ONCE, 1 dose, On Tue08/06/22 at 1430 * 1441 (Given - Provider: Mario Alberto Reeder RN) Medication Order// lactated ringers IV soln infusion IntraVENous, at 100 mL/hr, CONTINUOUS, Starting on Tue12/08/22 at 1230, Pre-op (day of surgery) * 1236 (New Bag - Provider: Swapna France RN) * 1427 (Stopped - Provider: Makayla Ji RN) Medication Order/// aspirin EC tablet 81 mg 81 mg, Oral, DAILY, First dose on Tue06/11/23 at 0900, Until Discontinued * 0824 (Given - Provider: Makayla Leon BRENANA) * 0834 (Given - Provider: Joanie Donovan, BREANNA) * 0824 (Given - Provider: Yuliet Galaviz, BREANNA) atorvastatin (LIPITOR) tablet 80 mg 80 mg, Oral, NIGHTLY, First dose on 06/11/23 at 0100, Until Discontinued * 2015 (Given - Provider: Ramya Nam, BREANNA) * 2104 (Given - Provider: Cheyenne Poon, BREANNA) * 2099 (Due) azithromycin (ZITHROMAX) tablet 500 mg (COMPLETED)(Linked Group 1) 500 mg, Oral, EVERY 24 HOURS, 3 doses, First dose on 06/11/23 at 2300, Last dose on Tue06/13/23 at 2300, Antimicrobial Indications: Pneumonia (CAP), CAP duration of therapy: Other, Other CAP Duration: 3 days * 0007 (Given - Provider: Laurence Weathers RN) * 2311 (Given - Provider: Ramya Nam RN) * 2341 (Given - Provider: Shira Dobbins, BREANNA) cefTRIAXone (ROCEPHIN) 1,000 mg in sodium chloride 0.9 % 50 mL IVPB (mini-bag) (Linked Group 1) 1,000 mg, IntraVENous, EVERY 24 HOURS, 5 doses, First dose on Tue06/11/23 at 2300, Last dose on Tue06/15/23 at 2300, Antimicrobial Indications: Pneumonia (CAP), CAP duration of therapy: 5 days * 0008 (New Bag - Provider: Laurence Weathers RN) * 0038 (Stopped - Provider: Laurence Weathers RN) * 2314 (New Bag - Provider: Ramya Nam RN) * 2351 (Stopped - Provider: Oren Washburn RN) * 2340 (New Bag - Provider: Shira Dobbins, BREANNA) * 0044 (Stopped - Provider: Shira Dobbins RN) * 2300 (Due) cetirizine (ZYRTEC) tablet 10 mg 10 mg, Oral, DAILY, First dose (after last modification) on 06/11/23 at 0230, Until Discontinued, Substituted for Levocetirizine (XYZAL). * 0824 (Given - Provider: Makayla Leon RN) * 0834 (Given - Provider: Joanie Donovan RN) * 0824 (Given - Provider: Yuliet Galaviz RN) DULoxetine (CYMBALTA) extended release capsule 60 mg 60 mg, Oral, NIGHTLY, First dose on 06/11/23 at 0100, Until Discontinued, Do not crush or break.May add contents of capsule to apple juice or apple sauce, but not chocolate. * 2015 (Given - Provider: Ramya Nam RN) * 2104 (Given - Provider: Cheyenne Poon, BREANNA) * 2100 (Due) empagliflozin (JARDIANCE) tablet 10 mg 10 mg, Oral, DAILY, First dose on 06/11/23 at 0900, Until Discontinued, Indication of Use: HeartFailure (preserved EF), Note: Discontinuation of SGLT2 inhibitor therapy 3 days prior to surgery ormajor procedures is recommended given the risk for euglycemic diabetic ketoacidosis. * 0824 (Given - Provider: Makayla Leon RN) * 0834 (Given - Provider: Joanie Donovan RN) * 0824 (Given - Provider: Yuliet Galaviz RN) enoxaparin (LOVENOX) injection 40 mg 40 mg, SubCUTAneous, DAILY, First dose on 06/11/23 at 0900, Until Discontinued, Indication of Use: Prophylaxis-DVT/PE * 0825 (Given - Provider: Makayla Leon RN) * 0835 (Given - Provider: Joanie Donovan RN) * 0824 (Given - Provider: Yuliet Galaviz RN) famotidine (PEPCID) tablet 20 mg 20 mg, Oral, 2 TIMES DAILY, First dose on 06/11/23 at 0100, Until Discontinued * 0824 (Given - Provider: Makayla Leon RN) * 2015 (Given - Provider: Ramya Nam RN) * 0834 (Given - Provider: Joanie Donovan RN) * 2104 (Given - Provider: Cheyenne Poon, BREANNA) * 0824 (Given - Provider: Yuliet Galaviz RN) * 2100 (Due) fenofibrate (TRIGLIDE) tablet 160 mg 160 mg, Oral, DAILY, First dose (after last modification) on 06/11/23 at 0230, Until Discontinued, Substituted for Fenofibrate (Non-Formulary Dose). * 0824 (Given - Provider: Makayla Leon RN) * 0834 (Given - Provider: Joanie Donovan RN) * 0824 (Given - Provider: Yuliet Galaviz RN) fluticasone (FLONASE) 50 MCG/ACT nasal spray 2 spray 2 spray, Each Nostril, DAILY, First dose on 06/11/23 at 0900, Until Discontinued * 0828 (Given - Provider: Makayla Leon RN) * 0835 (Given - Provider: Joanie Donovan RN) * 0831 (Given - Provider: Yuliet Galaviz RN) furosemide (LASIX) tablet 20 mg 20 mg, Oral, DAILY, First dose on 06/11/23 at 0900, Until Discontinued * 0824 (Given - Provider: Makayla Leon RN) * 0834 (Given - Provider: Joanie Donovan RN) * 0824 (Given - Provider: Yuliet Glaaviz RN) gabapentin (NEURONTIN) capsule 600 mg 600 mg, Oral, 3 TIMES DAILY, First dose (after last modification) on 06/11/23 at 0230, Until Discontinued * 0824 (Given - Provider: Makayla Leon RN) * 1427 (Given - Provider: Makayla Leon RN) * 2015 (Given - Provider: Ramya Nam RN) * 0834 (Given - Provider: Joanie Donovan RN) * 1349 (Given - Provider: Joanie Donovan RN) * 2043 (Given - Provider: Cheyenne Poon RN) * 0824 (Given - Provider: Yuliet Galaviz RN) * 1400 (Due) * 2100 (Due) guaiFENesin (MUCINEX) extended release tablet 600 mg 600 mg, Oral, 2 TIMES DAILY, First dose on 06/11/23 at 0100, Until Discontinued, Do not crush orbreak. * 0824 (Given - Provider: Makayla Leon RN) * 2015 (Given - Provider: Ramya Nam RN) * 0833 (Given - Provider: Joanie Donovan RN) * 2105 (Given - Provider: Cheyenne Poon RN) * 0824 (Given - Provider: Yuliet Galaviz, BREANNA) * 2100 (Due) ibuprofen (ADVIL;MOTRIN) tablet 400 mg 400 mg, Oral, 3 TIMES DAILY WITH MEALS, First dose on 06/11/23 at 0800, Until Discontinued, Do not crush or break. Substituted for Diclofenac (VOLTAREN). * 0823 (Given - Provider: Makayla Leon RN) * 1200 (Given - Provider: Makayla Leon RN) * 1622 (Given - Provider: Makayla Leon RN) * 0834 (Given - Provider: Joanie Donovan RN) * 1210 (Given - Provider: Joanie Donovan RN) * 1717 (Given - Provider: Joanie Donovan RN) * 0824 (Given - Provider: Yuliet Galaviz RN) * 1131 (Not Given - Provider: Yuliet Galaviz RN - Reason: Patient/family refused) * 1700 (Due) insulin lispro (HUMALOG) injection vial 0-16 Units 0-16 Units, SubCUTAneous, 3 TIMES DAILY WITH MEALS, First dose on 06/11/23 at 1700, Until Discontinued, High Dose Corrective Algorithm Glucose: Dose: 70- 199 No Insulin 200-249 4 Units 250-299 8 Units 300-349 12 Units Over 349 16 Units and notify physician * 0826 (Given - Provider: Makayla Leon RN) * 1201 (Given - Provider: Makayla Leon RN) * 1657 (Not Given - Provider: Makayla Leon RN - Reason: Contraindicated - Comment: [id number]) * 0812 (Not Given - Provider: Joanie Donovan RN - Reason: Order parameters not met - Comment: 180) * 1205 (Not Given - Provider: Joanie Donovan RN - Reason: Order parameters not met - Comment: 197) * 1717 (Given - Provider: Joanie Donovan RN) * 0825 (Not Given - Provider: Yuliet Galaviz RN - Reason: Order parameters not met) * 1132 (Given - Provider: Yuliet Galaviz RN) * 1700 (Due) insulin lispro (HUMALOG) injection vial 0-4 Units 0-4 Units, SubCUTAneous, NIGHTLY, First dose on 06/11/23 at 2100, Until Discontinued, If continuous tube feedings/TPN/NPO, give correction dose based on result, no reduction in dose. If eating or bolus tube feeding: Corrective Bedtime Algorithm Glucose: Dose: 70-299 No Insulin 300-349 4 Units Over 349 4 Units and notify physician * 2018 (Not Given - Provider: Ramya Nam RN - Reason: Medication not available - Comment: [phone]) * 2056 (Not Given - Provider: Cheyenne Poon RN - Reason: Order parameters not met - Comment: FSBS [id number]) * 2099 (Due) insulin lispro (HUMALOG) injection vial 15 Units 15 Units, SubCUTAneous, 3 TIMES DAILY WITH MEALS, First dose on 06/11/23 at 1700, Until Discontinued, Substituted for Insulin lispro U-200 (HumaLOG KwikPen). * 0825 (Given - Provider: Makayla Leon RN) * 1201 (Given - Provider: Makayla Leon RN) * 1655 (Given - Provider: Makayla Leon RN) * 0835 (Given - Provider: Joanie Donovan, BREANNA) * 1210 (Given - Provider: Joanie Donovan, BREANNA) * 1717 (Given - Provider: Joanie Donovan, BREANNA) * 0825 (Given - Provider: Yuliet Galaviz, RN) * 1131 (Given - Provider: Yuliet Galaviz, RN) * 1700 (Due) insulin regular human (humuLIN R U-500 KWIKPEN) 500 UNIT/ML concentrated injection pen 100 Units (Patient Supplied) 100 Units, SubCUTAneous, 2 TIMES DAILY WITH MEALS, First dose on 06/11/23 at 1700, Until Discontinued, This is highly concentrated insulin. Patient may use home supply. * 0828 (Given - Provider: Makayla Leon RN) * 1655 (Given - Provider: Makayla Leon RN) * 0858 (Given - Provider: Joanie Donovan, BREANNA) * 1718 (Given - Provider: Joanie Donovan, RN) * 0900 (Given - Provider: Yuliet Galaviz, BREANNA) * 1700 (Due) ipratropium 0.5 mg-albuterol 2.5 mg (DUONEB) nebulizer solution 1 Dose (CANCELED) 1 Dose, Inhalation, 4 times daily, First dose (after last modification) on Tue06/11/23 at 0900, Until Discontinued, Initiate RT Bronchodilator Protocol: Yes - Inpatient Protocol * 0523 (Given - Provider: Ewa Rascon RCP) * 1137 (Given - Provider: Tere Espinoza RCP) * 1617 (Given - Provider: Tere Espinoza RCP) * 1953 (Given - Provider: Ewa Rascon RCP) * 0443 (Given - Provider: Ewa Rascon RCP) ipratropium 0.5 mg-albuterol 2.5 mg (DUONEB) nebulizer solution 1 Dose (CANCELED) 1 Dose, Inhalation, 3 TIMES DAILY, First dose (after last modification) on Tue06/13/23 at 0915, Until Discontinued, Initiate RT Bronchodilator Protocol: Yes - Inpatient Protocol * 1015 (Given - Provider: Eulalia Solis RCP) * 1437 (Given - Provider: Eulalia Solis RCP) * 2015 (Given - Provider: Ewa Rascon RCP) * 0734 (Given - Provider: Tere Espinoza RCP) ipratropium 0.5 mg-albuterol 2.5 mg (DUONEB) nebulizer solution 1 Dose 1 Dose, Inhalation, 4 TIMES DAILY RESP, First dose (after last modification) on Tue06/14/23 at 1500, Until Discontinued, Initiate RT Bronchodilator Protocol: Yes - Inpatient Protocol * 1500 (Due) * 2000 (Due) lisinopril (PRINIVIL;ZESTRIL) tablet 10 mg 10 mg, Oral, DAILY, First dose on Tue06/11/23 at 0900, Until Discontinued * 0824 (Given - Provider: Makayla Leon RN) * 0834 (Given - Provider: Joanie Donovan RN) * 0824 (Given - Provider: Yuliet Galaviz RN) methylPREDNISolone sodium succ (SOLU-MEDROL) injection 40 mg 40 mg, IntraVENous, EVERY 12 HOURS, First dose on Tue06/11/23 at 0900 * 0824 (Given - Provider: Makayla Leon RN) * 2017 (Given - Provider: Ramya Nam RN) * 0835 (Given - Provider: Joanie Donovan, RN) * 2105 (Given - Provider: Cheyenne Poon, BREANNA) * 824 (Given - Provider: Yuliet Galaviz, BREANNA) * 2100 (Due) metoprolol succinate (TOPROL XL) extended release tablet 25 mg 25 mg, Oral, 2 times daily, First dose on 06/11/23 at 0100, Until Discontinued, Do not crush or chew. * 08 (Given - Provider: Makayla Leon RN) * 2015 (Given - Provider: Ramya Nam RN) * 08 (Given - Provider: Joanie Donovan, BREANNA) * 2104 (Given - Provider: Cheyenne Poon, BREANNA) * 08 (Given - Provider: Yuliet Galaviz RN) * 2100 (Due) montelukast (SINGULAIR) tablet 10 mg 10 mg, Oral, NIGHTLY, First dose on 06/11/23 at 0100, Until Discontinued, at bedtime. * 2016 (Given - Provider: Ramya Nam RN) * 2104 (Given - Provider: Cheyenne Poon, BREANNA) * 2100 (Due) rOPINIRole (REQUIP) tablet 4 mg 4 mg, Oral, NIGHTLY, First dose on 06/11/23 at 0100, Until Discontinued * 2015 (Given - Provider: Ramya Nam RN) * 2041 (Given - Provider: Cheyenne Poon, BREANNA) * 2100 (Due) sodium chloride flush 0.9 % injection 5-40 mL 5-40 mL, IntraVENous, EVERY 12 HOURS SCHEDULED (2 times per day), First dose on 06/11/23 at 0900, Until Discontinued, For Line Patency: Peripheral IV = 5 mL; Midline or Central Line = 10 mL/lumen.If following IV push medication, administer flush at same rate as the IV push. Flush volume is determined by type of infusion therapy being given. For non-viscous solutions use: Peripheral IV = 5 mL Midline or Central Line = 10 mL/lumen For viscous solutions (i.e. blood components, parenteral nutrition, contrast media, or after obtaining blood sample) use: Peripheral IV = 10 mL Midline or CentralLine = 20 mL/lumen * 0835 (Given - Provider: Makayla Leon, RN) * 2016 (Given - Provider: Ramya Nam, BREANNA) * 08 (Given - Provider: Joanei Donovan, BREANNA) * 2113 (Given - Provider: Cheyenne Poon, RN) * 824 (Given - Provider: Yuliet Galaviz, RN) * 2099 (Due) Medication Order06/12/// 0.9 % sodium chloride infusion IntraVENous, at [...] on 06/11/23 at 0845, Until Discontinued, Muscle spasms,muscle spasm * 2109 (Given - Provider: Cheyenne Poon, BREANNA) benzonatate (TESSALON) capsule 100 mg 100 mg, Oral, 3 TIMES DAILY PRN, Starting on 06/11/23 at 0043, Until Discontinued, Cough * 1918 (Given - Provider: Ramya Nam RN) dextrose [...] 06/11/23 at 0043, Repeat blood glucose in 15minutes. If blood glucose remains LESS THAN 70 mg/dL, repeat treatment and recheck blood glucose in15 minutes x 2. If using glycemic management [...] 06/11/23 at 1616, Repeat blood glucose in 15minutes. If blood glucose remains LESS THAN 70 mg/dL, repeat treatment and recheck blood glucose in15 minutes x 2. If using glycemic management [...] at 100 mL/hr. Repeat blood glucose in 15minutes x 2 and notify provider. glucagon (rDNA) injection 1 mg 1 mg, IntraMUSCular, PRN, Starting on 06/11/23 at 1616, Until Discontinued, Low blood sugar, Blood glucose less than 70 mg/dL and patient NOT ALERT or NPO and does not have IV access., After administration, attempt intravenous access and start D5W at 100 mL/hr. Repeat blood glucose in 15 minutesx2 and notify provider. glucose chewable tablet 16 g 16 g (4 tablet), Oral, PRN, Starting on 06/11/23 at 0043, Until Discontinued, Low blood sugar, If blood glucose is LESS THAN 70 mg/dL and patient is alert and tolerating oral. Give 4 tablets (16g)Repeat blood glucose in 15 minutes. If blood [...] alert and tolerating oral. Give 4 tablets (16g)Repeat blood glucose in 15 minutes. If blood glucose is LESS THAN 70 mg/dL, repeat treatment and recheck blood glucose in 15 minutes x 2. If blood glucose remains LESS THAN 70 mg/dL, notify provider. guaiFENesin-codeine (GUAIFENESIN AC) 100-10 MG/5ML liquid 5 mL 5 mL, Oral, EVERY 4 HOURS PRN, Starting on 06/12/23 at 0659, Until Discontinued, Cough * 1622 (Given - Provider: Makayla Leon RN) * 2318 (Given - Provider: Ramya Nam RN) * 0709 (Given - Provider: Joanie Donovan, BREANNA) * 1717 (Given - Provider: Joanie Donovan, RN) * 2116 (Given - Provider: Cheynene Poon, BREANNA) * 0652 (Given - Provider: Yuliet Galaviz, BREANNA) * 1131 (Given - Provider: Yuliet Galaviz, BREANNA) guaiFENesin-dextromethorphan (ROBITUSSIN DM) 100-10 MG/5ML syrup 5 mL 5 mL, Oral, EVERY 4 HOURS PRN, Starting on 06/11/23 at 0043, Until Discontinued, Cough * 0659 (Held by provider - Provider: Emanuel [...] For viscous solutions (i.e. blood components, parenteral nutrition,contrast media, or after obtaining blood sample) use: Peripheral IV = 10 mL Midline or Central Line= 20 mL/lumen traMADol (ULTRAM) tablet 50 mg 50 mg, Oral, EVERY 4 HOURS PRN, Starting on 06/12/23 at 0715, Until Discontinued, Pain Mild (1-3), Pain Moderate (4-6), Pain Severe (7-10) * 0823 (Given - Provider: Makayla Leon RN) * 1919 (Given - Provider: Ramya Nam RN) * 0709 (Given - Provider: Joanie Donovan, BREANNA) * 1213 (Given - Provider: Joanie Donovan, BREANNA) * 1716 (Given - Provider: Joanie Donovan, BREANNA) * 2116 (Given - Provider: Cheyenne Poon RN) * 0652 (Given - Provider: Yuliet Galaviz, BREANNA) * 1131 (Given - Provider: Yuliet Galaviz, BREANNA) Medication Order06/12//// sterile water injection (COMPLETED) 1 dose, Starting on 06/12/23 at 0814, Until 06/12/23 at 0825, Makayla Leon: cabinet override, Makayla Leon: cabinet override * 0825 (Given - Provider: Makayla Leon RN) sterile water injection (COMPLETED) 1 dose, Starting on 06/12/23 at 2014, Until 06/12/23 at 2017, Ramya Nam: cabinet override, Ramya Nam: cabinet override * 2016 (Given - Provider: Ramya Nam, RN) Order Group 1: cefTRIAXone (ROCEPHIN) 1,000 mg in sodium chloride 0.9 % 50 mL IVPB (mini-bag) Jump to med 1,000 mg, IntraVENous, EVERY 24 [...]
Administer if oral route cannot be used.
Medication Order// ketorolac (TORADOL) injection 30 mg (COMPLETED) 30 mg, IntraMUSCular, ONCE, 1 dose, On Tue07/13/24 at 2015, Do not administer for more than 5 days. * 2042 (Given - Provider: Virgil Yates RN) Medication Order/ oxyCODONE (ROXICODONE) immediate release tablet 5 mg (COMPLETED) 5 mg, Oral, ONCE, 1 dose, On Tue07/14/24 at 0030 * 0022 (Given - Provider: Bear Jernigan RN) rOPINIRole (REQUIP) tablet 4 mg (COMPLETED) 4 mg, Oral, ONCE, 1 dose, On Tue07/14/24 at 0100 * 0115 (Given - Provider: Tiny Teran RN) Medication Order// aspirin chewable tablet 81 mg 81 mg, Oral, DAILY, First dose (after last modification) on Tue07/24/24 at 1200, Until Discontinued * 1157 (Given - Provider: Jesse Duron RN) * 1110 (Given - Provider: Jesse Duron RN) * 1223 (Given - Provider: Annemarie Mcintosh RN) atorvastatin (LIPITOR) tablet 40 mg 40 mg, Oral, NIGHTLY, First dose on Tue07/23/24 at 2330, Until Discontinued * 2047 (Given - Provider: Stella Lo RN) * 1953 (Given - Provider: Stella Lo RN) * 2100 (Due) ceFAZolin (ANCEF) 2000 mg in 20 mL IV syringe 2,000 mg, IntraVENous, EVERY 8 HOURS, First dose on Tue07/24/24 at 0000, Administer over 5 mins. * 0237 (Given - Provider: Stella Lo RN - Comment: didn't get from pharmacy at scheduled time) * 1048 (Given - Provider: Jesse Duron RN) * 2050 (Given - Provider: Stella Lo RN - Comment: was not up here) * 0500 (Given - Provider: Stella Lo RN) * 1317 (Given - Provider: Jesse Duron RN) * 220 (Given - Provider: Stella Lo RN) * 0612 (Given - Provider: Stella Lo RN) * 1353 (Given - Provider: Annemarie Mcintosh RN) * 2100 (Due - Provider: Good Hawley [facility]) cetirizine (ZYRTEC) tablet 10 mg 10 mg, Oral, NIGHTLY, First dose (after last modification) on Tue07/24/24 at 2100, Until Discontinued, Substituted for Levocetirizine (XYZAL). * 2047 (Given - Provider: Stella Lo RN) * 1953 (Given - Provider: Stella Lo RN) * 2100 (Due) DULoxetine (CYMBALTA) extended release capsule 60 mg 60 mg, Oral, NIGHTLY, First dose on Tue07/23/24 at 2330, Until Discontinued, Do not crush or break. May add contents of capsule to apple juice or apple sauce, but not chocolate. * 2047 (Given - Provider: Stella Lo RN) * 1953 (Given - Provider: Stella Lo RN) * 2100 (Due) empagliflozin (JARDIANCE) tablet 10 mg 10 mg, Oral, DAILY, First dose on Tue07/24/24 at 0900, Until Discontinued, Indication of Use: Heart Failure (reduced EF), Note: Discontinuation of SGLT2 inhibitor therapy 3 days prior to surgery or major procedures is recommended given the risk for euglycemic diabetic ketoacidosis. * 0820 (Given - Provider: Jesse Duron RN) * 0903 (Given - Provider: Jesse Duron RN) * 0813 (Given - Provider: Annemarie Mcintosh RN) enoxaparin (LOVENOX) injection 40 mg 40 mg, SubCUTAneous, DAILY, First dose on Tue07/24/24 at 0900, Until Discontinued, Indication of Use: Prophylaxis-DVT/PE, Administer by deep subCUTAneous injection with pt lying down. Alternate injection sites on abdominal wall. Do not rub site after injection. Check with provider prior to any invasive procedure. * 0827 (Given - Provider: Jesse Duron RN) * 0905 (Given - Provider: Jesse Duron RN) * 0818 (Given - Provider: Annemarie Mcintosh RN) fenofibrate tablet 160 mg 160 mg, Oral, Nightly, First dose (after last modification) on Tue07/24/24 at 2100, Until Discontinued, Substituted for Fenofibrate (Non-Formulary Dose). * 2047 (Given - Provider: Stella Lo RN) * 1953 (Given - Provider: Stella Lo RN) * 2100 (Due) furosemide (LASIX) tablet 20 mg 20 mg, Oral, DAILY, First dose (after last modification) on Tue07/24/24 at 1200, Until Discontinued * 1157 (Given - Provider: Jesse Duron RN) * 1110 (Given - Provider: Jesse Duron RN) * 1223 (Given - Provider: Annemarie Mcintosh RN) insulin lispro (HUMALOG,ADMELOG) injection vial 0-4 Units 0-4 Units, SubCUTAneous, 4 TIMES DAILY BEFORE MEALS & NIGHTLY, First dose on Tue07/23/24 at 2330, Until Discontinued, Corrective Low Dose Algorithm Glucose: Dose: 70-179 No Insulin 180-249 1Unit 250-299 2 Units 300-349 3 Units Over 349 4 Units and notify physician Administer as soon as possible within 60 minutes of last blood glucose check * 0023 (Given - Provider: Stella Lo RN) * 0839 (Not Given - Provider: eJsse Duron RN - Reason: Order parameters not met) * 1157 (Given - Provider: Jesse Duron RN) * 1725 (Not Given - Provider: Jesse Duron RN - Reason: Patient/family refused) * 211 (Not Given - Provider: Stella Lo RN - Reason: Order parameters not met) * 0905 (Given - Provider: Jesse Duron RN) * 1325 (Not Given - Provider: Jesse Duron RN - Reason: Patient/family refused) * 1752 (Not Given - Provider: Jesse Duron RN - Reason: Order parameters not met) * 2200 (Given - Provider: Stella Lo RN) * 0818 (Given - Provider: Annemarie Mcinotsh RN) * 1216 (Not Given - Provider: Annemarie Mcintosh RN - Reason: Order parameters not met) * 1700 (Due) * 2100 (Due) insulin lispro (HUMALOG,ADMELOG) injection vial 5 Units (COMPLETED) 5 Units, SubCUTAneous, ONCE, 1 dose, On Tue07/24/24 at 0030 * 0024 (Given - Provider: Stella Lo RN) insulin lispro (HUMALOG,ADMELOG) injection vial 60 Units 60 Units, SubCUTAneous, 3 TIMES DAILY WITH MEALS, First dose on Tue07/24/24 at 0215, Until Discontinued * 0152 (Given - Provider: Stella Lo RN) * 0943 (Not Given - Provider: Jesse Duron RN - Reason: Order parameters not met) * 1153 (Not Given - Provider: Jesse Duron RN - Reason: Patient/family refused) * 1712 (Given - Provider: Jesse Duron RN) * 0906 (Not Given - Provider: Jesse Duron RN - Reason: Patient/family refused) * 1316 (Given - Provider: Jesse Duron RN) * 1750 (Given - Provider: Jesse Duron RN) * 0819 (Given - Provider: Annemarie Mcintosh RN) * 1411 (Not Given - Provider: Annemarie Mcintosh RN - Reason: Other - Comment: BS 72) * 1700 (Due) lisinopril (PRINIVIL;ZESTRIL) tablet 10 mg 10 mg, Oral, DAILY, First dose (after last modification) on Tue07/24/24 at 1200, Until Discontinued * 1157 (Given - Provider: Jesse Duron RN) * 1110 (Given - Provider: Jesse Duron RN) * 1223 (Given - Provider: Annemarie Mcintosh RN) methocarbamol (ROBAXIN) tablet 500 mg 500 mg, Oral, 4 TIMES DAILY, First dose on Tue07/23/24 at 2330, Until Discontinued * 0826 (Given - Provider: Jesse Duron RN) * 1315 (Given - Provider: Jesse Duron RN) * 1712 (Given - Provider: Jesse Duron RN) * 2046 (Given - Provider: Stella Lo RN) * 0904 (Given - Provider: Jesse Duron RN) * 1327 (Given - Provider: Jesse Duron RN) * 1750 (Given - Provider: Jesse Duron RN) * 1957 (Given - Provider: Stella Lo RN) * 0812 (Given - Provider: Annemarie Mcintosh RN) * 1411 (Given - Provider: Annemarie Mcintosh RN) * 1700 (Due) * 2100 (Due) metoprolol succinate (TOPROL XL) extended release tablet 75 mg 75 mg, Oral, DAILY, First dose on Tue07/24/24 at 0900, Until Discontinued, Do not crush or chew. * 0823 (Given - Provider: Jesse Duron RN) * 0903 (Given - Provider: Jesse Duron RN) * 0812 (Given - Provider: Annemarie Mcintosh RN) montelukast (SINGULAIR) tablet 10 mg 10 mg, Oral, NIGHTLY, First dose on Tue07/23/24 at 2330, Until Discontinued * 0024 (Given - Provider: Stella Lo RN) * 2047 (Given - Provider: Stella Lo RN) * 1953 (Given - Provider: Stella Lo RN) * 2100 (Due) pantoprazole (PROTONIX) tablet 40 mg 40 mg, Oral, DAILY BEFORE BREAKFAST, First dose on Tue07/24/24 at 0700, Until Discontinued, Do notcrush or break. Substituted for Omeprazole (PRILOSEC). * 0516 (Given - Provider: Stella Lo RN) * 0512 (Given - Provider: Stella oL RN) * 0609 (Given - Provider: Stella Lo RN) pregabalin (LYRICA) capsule 25 mg (CANCELED) 25 mg, Oral, DAILY, First dose on Tue07/24/24 at 0900, Until Discontinued * 0820 (Given - Provider: Jesse Duron RN) pregabalin (LYRICA) capsule 25 mg 25 mg, Oral, 3 TIMES DAILY, First dose (after last modification) on Tue07/24/24 at 1400, Until Discontinued * 1414 (Given - Provider: Jesse Duron RN) * 2047 (Given - Provider: Stella Lo RN) * 09 (Given - Provider: Jesse Duron RN) * 1316 (Given - Provider: Jesse Duron RN) * 1953 (Given - Provider: Stella Lo RN) * 08 (Given - Provider: Annemarie Mcintosh RN) * 135 (Given - Provider: Annemarie Mcintosh RN) * 2100 (Due) rOPINIRole (REQUIP) tablet 4 mg 4 mg, Oral, NIGHTLY, First dose on Tue07/23/24 at 2330, Until Discontinued * 2047 (Given - Provider: Stella Lo RN) * 1954 (Given - Provider: Stella Lo RN) * 2100 (Due) sodium chloride flush 0.9 % [...] non-viscous solutions use: Peripheral IV = 5 mLMidline or Central Line = 10 mL/lumen For viscous solutions (i.e. blood components, parenteral nutrition, contrast media, or after obtaining blood sample) use: Peripheral IV = 10 mL Midline or Central Line = 20 mL/lumen * 1003 (Not Given - Provider: Jesse Duron RN - Reason: IV Fluid Infusing) * 2112 (Not Given - Provider: Stella Lo RN - Reason: IV Fluid Infusing) * 905 (Not Given - Provider: Jesse Duron RN - Reason: IV Fluid Infusing) * 2006 (Not Given - Provider: Stella Lo RN - Reason: IV Fluid Infusing) * 08 (Not Given - Provider: Annemarie Mcintosh RN - Reason: IV Fluid Infusing) * 2099 (Due) traMADol (ULTRAM) tablet 100 mg (CANCELED) 100 mg, Oral, 2 TIMES DAILY, First dose on Tue07/23/24 at 2330, Until Discontinued * 0820 (Given - Provider: Jesse Duron RN) vitamin D (ERGOCALCIFEROL) capsule 50,000 Units 50,000 Units, Oral, WEEKLY, First dose on Tue07/25/24 at 0930, Until Discontinued * 0904 (Given - Provider: Jesse Duron RN) Medication Order07/24/ 0.9 % sodium chloride infusion IntraVENous, at 5-250 mL/hr, PRN, if patient receiving piggyback infusions and maintenance fluids are not ordered, Starting on Tue07/23/24 at 1845, For piggyback infusion, administer at same rate aspiggyback for a total of 25 mL. Enter [...] LESS THAN 70 mg/dL, repeat treatment and re check blood glucose in 15 minutes x 2. If blood glucose remains LESS THAN 70 mg/dL, notify provider. magnesium sulfate 2000 mg in water 50 mL IVPB 2,000 mg, IntraVENous, at 25 mL/hr, Administer over 2 Hours, PRN, Other, Magnesium Replacement, Starting on Tue07/23/24 at 1845, Mag Lab Replacement Action 1.4-1.6 mg/dL 2,000 mg Total Dose Given as1,000 mg IVPB x 2 doses or 2,000 [...] 07/23/24 at 1848, Until Olena 07/26/24 at 1125,Pain Severe (7-10), breakthru, If oral and IV narcotics ordered, use oral first and only use IV if oral is ineffective or cannot take oral. Do Not give oral and IV within 1 hour of each other unless specifically ordered. * 0040 (Given - Provider: Stella Lo RN) * 0516 (Given - Provider: Stella Lo RN) * 0955 (Given - Provider: Jesse Duron, BREANNA) * 1414 (Given - Provider: Jesse Duron, RN) * 1833 (Given - Provider: Jesse Duron, BREANNA) * 2227 (Given - Provider: Stella Lo, BREANNA) * 0238 (Given - Provider: Stella Lo, BREANNA) * 0637 (Given - Provider: Stella Lo, BREANNA) * 1111 (Given - Provider: Jesse Duron RN) * 1537 (Given - Provider: Jesse Duron, BREANNA) * 1954 (Given - Provider: Stella Lo RN) * 2357 (Given - Provider: Stella Lo RN) * 0406 (Given - Provider: Stella Lo RN) * 0816 (Given - Provider: Annemarie Mcintosh RN) ondansetron (ZOFRAN) injection 4 mg(Linked Group 2) 4 mg, IntraVENous, EVERY 6 HOURS PRN, Starting on Tue07/23/24 at 1845, Until Discontinued, Nausea,Vomiting, Administer if oral route cannot be used. ondansetron (ZOFRAN-ODT) disintegrating tablet 4 mg(Linked Group 2) 4 mg, Oral, EVERY 8 HOURS PRN, Starting on Tue07/23/24 at 1845, Until Discontinued, Nausea, Vomiting oxyCODONE-acetaminophen (PERCOCET) 5-325 MG per tablet 1 tablet (CANCELED) (Linked Group 3) 1 tablet, Oral, EVERY 4 HOURS PRN, Starting on Tue07/24/24 at 1637, Until Tue07/24/24 at 1746, Pain Severe (7-10), Maximum dose of acetaminophen is 4000 mg from all sources in 24 hours. * 1712 (Given - Provider: Jesse Duron RN) oxyCODONE-acetaminophen (PERCOCET) 5-325 MG per tablet 1 tablet(Linked Group 4) 1 tablet, Oral, EVERY 4 HOURS PRN, Starting on Tue07/24/24 at 2027, Until Discontinued, For moderate pain level 4-6, Maximum dose of acetaminophen is 4000 mg from all sources in 24 hours. * 2046 (See Alternative - Provider: Stella Lo RN) * 0046 (See Alternative - Provider: Stella Lo RN) * 0459 (See Alternative - Provider: Stella Lo RN) * 0905 (See Alternative - Provider: Jesse Duron RN) * 1316 (See Alternative - Provider: Jesse Duron RN) * 1750 (See Alternative - Provider: Jesse Duron RN) * 2200 (See Alternative - Provider: Stella Lo RN) * 0209 (See Alternative - Provider: Stella Lo RN) * 0609 (See Alternative - Provider: Stella Lo RN) * 1125 (See Alternative - Provider: Annemarie Mcintosh RN) * 1530 (See Alternative - Provider: Annemarie Mcintosh RN) oxyCODONE-acetaminophen (PERCOCET) 5-325 MG per tablet 2 tablet (CANCELED) (Linked Group 5) 2 tablet, Oral, EVERY 4 HOURS PRN, Starting on Tue07/23/24 at 1848, Until Tue07/24/24 at 0954, For severe pain level 7-10, Maximum dose of acetaminophen is 4000 mg from all sources in 24 hours. * 0235 (Given - Provider: Stella Lo RN) * 0720 (Given - Provider: Stella Lo RN) oxyCODONE-acetaminophen (PERCOCET) 5-325 MG per tablet 2 tablet(Linked Group 4) 2 tablet, Oral, EVERY 4 HOURS PRN, Starting on Tue07/24/24 at 2027, Until Discontinued, For severepain level 7-10, Maximum dose of acetaminophen is 4000 mg from all sources in 24 hours. * 2046 (Given - Provider: Stella Lo RN) * 0046 (Given - Provider: Stella Lo RN) * 0459 (Given - Provider: Stella Lo RN) * 0905 (Given - Provider: Jesse Duron RN) * 1316 (Given - Provider: Jesse Duron RN) * 1750 (Given - Provider: Jesse Duron RN) * 2200 (Given - Provider: Stella Lo RN) * 0209 (Given - Provider: Stella Lo RN) * 0609 (Given - Provider: Stella Lo RN) * 1125 (Given - Provider: Annemarie Mcintosh RN) * 1530 (Given - Provider: Annemarie Mcintosh RN) polyethylene glycol (GLYCOLAX) packet 17 g 17 g, Oral, DAILY PRN, Starting on Tue07/23/24 at 1845, Until Discontinued, Constipation, First line therapy for constipation povidone-iodine (BETADINE) 10 % external solution Topical, PRN, Wound Care, Please send to patient room STAT, Starting on Tue07/23/24 at 1848, For 1dose, 1 Large bottle to bedside for Podiatry [...] since Tue07/24/2024 at 1638 until manually unheld * 1315 (Given - Provider: Jesse Duron RN) * 1638 (Held by provider - Provider: Helen Cleveland MD - Reason: Other) Order Group 1: dextrose bolus 10% 125 [...] Starting on Tue07/23/24 at 1845, Until Discontinued, Nausea,Vomiting, Administer if oral route cannot be used. [...] Tue07/24/24 at 1637, Until Tue07/24/24 at 1746, PainModerate (4-6) Group 4: oxyCODONE-acetaminophen (PERCOCET) 5-325 MG [...] on Tue07/24/24 at 2026, Until Discontinued, For severepain level 7-10, Maximum dose of acetaminophen is [...] mg from all sources in 24 hours. Medication Order09/13/[id number]/ acetaminophen (TYLENOL) tablet 1,000 mg (COMPLETED) 1,000 mg, Oral, ONCE, 1 dose, On Tue09/14/24 at 0630, Administer 60 minutes prior to surgery., Pre-op (day of surgery) * 0700 (Given - Provider: Mecca Ward RN) aspirin EC tablet 81 mg 81 mg, Oral, DAILY, First dose on Tue09/15/24 at 1100, Until Discontinued * 1121 (Given - Provider: Angely Martínez RN) atorvastatin (LIPITOR) tablet 40 mg 40 mg, Oral, NIGHTLY, First dose on Tue09/14/24 at 2245, Until Discontinued * 2305 (Given - Provider: Hui Gayle RN) * 2100 (Due) ceFAZolin (ANCEF) 2000 mg in 20 mL IV syringe (COMPLETED) 2,000 mg, IntraVENous, ONCE, On Tue09/14/24 at 0715, For 1 dose, Administer over 5 mins., Pre-op (day of surgery) * 0807 (Given - Provider: Johnathan Lara, [employer]) ceFAZolin (ANCEF) 2000 mg in 20 mL IV syringe 2,000 mg, IntraVENous, EVERY 8 HOURS, First dose on Tue09/14/24 at 1600, Administer over 5 mins. * 1656 (Given - Provider: Jesse Duron RN) * 2346 (Given - Provider: Hui Gayle RN) * 0833 (Given - Provider: Angely Martínez RN) * 1600 (Due) cetirizine (ZYRTEC) tablet 10 mg 10 mg, Oral, DAILY, First dose on Tue09/15/24 at 0900, Until Discontinued, Substituted for Levocetirizine (XYZAL). * 0832 (Given - Provider: Angely Martínez RN) DULoxetine (CYMBALTA) extended release capsule 60 mg 60 mg, Oral, NIGHTLY, First dose on Tue09/14/24 at 2245, Until Discontinued, Do not crush or break. May add contents of capsule to apple juice or apple sauce, but not chocolate. * 2305 (Given - Provider: Hui Gayle RN) * 2100 (Due) empagliflozin (JARDIANCE) tablet 10 mg 10 mg, Oral, DAILY, First dose on Tue09/15/24 at 1100, Until Discontinued, Indication of Use: Type2 diabetes, Note: Discontinuation of SGLT2 inhibitor therapy 3 days prior to surgery or major procedures is recommended given the risk for euglycemic diabetic ketoacidosis., On hold since Tue09/15/2024 at 1559 until manually unheld * 1120 (Given - Provider: Angely Martínez RN) * 1559 (Held by provider - Provider: Arias Simmons MD - Reason: Other) enoxaparin (LOVENOX) injection 40 mg 40 mg, SubCUTAneous, DAILY, First dose on Tue09/14/24 at 1400, Until Discontinued, Indication of Use: Prophylaxis-DVT/PE, Administer by deep subCUTAneous injection with pt lying down. Alternate injection sites on abdominal wall. Do not rub site after injection. Check with provider prior to any invasive procedure. * 1656 (Given - Provider: Jesse Duron RN) * 0832 (Given - Provider: Angely Martínez RN) fenofibrate tablet 160 mg 160 mg, Oral, DAILY, First dose on Tue09/15/24 at 1100, Until Discontinued, Substituted for Fenofibrate (Non-Formulary Dose). * 1120 (Given - Provider: Angely Martínez RN) furosemide (LASIX) tablet 20 mg 20 mg, Oral, DAILY, First dose on Tue09/15/24 at 1100, Until Discontinued * 1120 (Not Given - Provider: Angely Martínez RN - Reason: Order parameters not met) gabapentin (NEURONTIN) capsule 300 mg (COMPLETED) 300 mg, Oral, ONCE, 1 dose, On Tue09/14/24 at 0630, Administer 60 minutes prior to surgery., Pre-op (day of surgery) * 0700 (Given - Provider: Mecca Ward RN) insulin glargine (LANTUS) injection vial 15 Units (CANCELED) 15 Units, SubCUTAneous, 2 TIMES DAILY, First dose on Tue09/14/24 at 2100, Until Discontinued * 2020 (Given - Provider: Hui Gayle RN) * 08 (Given - Provider: Angely Martínez RN) insulin lispro (HUMALOG,ADMELOG) injection vial 0-16 Units 0-16 Units, SubCUTAneous, 4 TIMES DAILY BEFORE MEALS & NIGHTLY, First dose on Tue09/15/24 at 1700, Until Discontinued, High Dose Corrective Algorithm Glucose: Dose: 70-179 No Insulin 180-2494 Units 250-299 8 Units 300-349 12 Units Over 349 16 Units and notify physician Administer as soon as possible within 60 minutes of last blood glucose check * 1655 (Given - Provider: Angely Martínez RN) * 2100 (Due) insulin lispro (HUMALOG,ADMELOG) injection vial 0-4 Units (CANCELED) 0-4 Units, SubCUTAneous, 4 TIMES DAILY BEFORE MEALS & NIGHTLY, First dose on Tue09/14/24 at 1700, Until Discontinued, Corrective Low Dose Algorithm Glucose: Dose: 70-179 No Insulin 180-249 1Unit 250-299 2 Units 300-349 3 Units Over 349 4 Units and notify physician Administer as soon as possible within 60 minutes of last blood glucose check * 165 (Given - Provider: Jesse Duron RN) * 2020 (Given - Provider: Hui Gayle RN) * 0721 (Given - Provider: Hui Gayle RN) * 1120 (Given - Provider: Angely Martínez RN) insulin regular human (humuLIN R U-500 KWIKPEN) 500 UNIT/ML concentrated injection pen 100 Units 100 Units, SubCUTAneous, 2 TIMES DAILY WITH MEALS, First dose on Tue09/15/24 at 1700, Until Discontinued, This is a highly concentrated insulin. After attaching the pen needle, prime with 5 units toensure proper dosing. * 1700 (Due) lisinopril (PRINIVIL;ZESTRIL) tablet 10 mg 10 mg, Oral, DAILY, First dose on Tue09/15/24 at 1100, Until Discontinued * 1121 (Not Given - Provider: Angely Martínez RN - Reason: Order parameters not met) melatonin tablet 3 mg 3 mg, Oral, NIGHTLY, First dose on Tue09/14/24 at 2100, Until Discontinued * 2021 (Given - Provider: Hui Gayle RN) * 2100 (Due) methocarbamol (ROBAXIN) tablet 500 mg 500 mg, Oral, 4 TIMES DAILY, First dose on Tue09/15/24 at 1300, Until Discontinued * 1346 (Given - Provider: Angely Martínez RN) * 1655 (Given - Provider: Angely Martínez RN) * 2100 (Due) metoprolol succinate (TOPROL XL) extended release tablet 25 mg 25 mg, Oral, EVERY EVENING, First dose on Tue09/14/24 at 2245, Until Discontinued, Do not crush orchew. * 2309 (Not Given - Provider: Hui Gayle RN - Reason: Other) * 1656 (Given - Provider: Angely Martínez RN) metoprolol succinate (TOPROL XL) extended release tablet 50 mg 50 mg, Oral, DAILY BEFORE BREAKFAST, First dose on Tue09/15/24 at 0700, Until Discontinued, Do notcrush or chew. * 0722 (Given - Provider: Hui Gayle RN) montelukast (SINGULAIR) tablet 10 mg 10 mg, Oral, NIGHTLY, First dose on Tue09/14/24 at 2245, Until Discontinued * 2305 (Given - Provider: Hui Gayle RN) * 2100 (Due) nicotine (NICODERM CQ) 14 MG/24HR [...] to facility policy for handling and disposal. * 1409 (Not Given - Provider: Jesse Duron RN - Reason: Patient/family refused) * 0832 (Not Given - Provider: Angely Martínez RN - Reason: Patient/family refused) pantoprazole (PROTONIX) tablet 40 mg 40 mg, Oral, DAILY BEFORE BREAKFAST, First dose on Tue09/16/24 at 0700, Until Discontinued, Do notcrush or break. Substituted for Omeprazole (PRILOSEC). pioglitazone (ACTOS) tablet 30 mg 30 mg, Oral, DAILY, First dose on 09/15/24 at 1100, Until Discontinued * 1346 (Given - Provider: Angely Martínez RN) pregabalin (LYRICA) capsule 25 mg 25 mg, Oral, DAILY, First dose on 09/15/24 at 1100, Until Discontinued * 1120 (Given - Provider: Angely Martínez RN) rOPINIRole (REQUIP) tablet 4 mg 4 mg, Oral, NIGHTLY, First dose on Tue09/14/24 at 2245, Until Discontinued * 2305 (Given - Provider: Hui Gayle RN) * 2100 (Due) sodium chloride flush 0.9 % [...] non-viscous solutions use: Peripheral IV = 5 mLMidline or Central Line = 10 mL/lumen For viscous solutions (i.e. blood components, parenteral nutrition, contrast media, or after obtaining blood sample) use: Peripheral IV = 10 mL Midline or Central Line = 20 mL/lumen * 1409 (Not Given - Provider: Jesse Duron RN - Reason: IV Fluid Infusing) * 1914 (Not Given - Provider: Hui Gayle RN - Reason: IV Fluid Infusing) * 0833 (Not Given - Provider: Angely Martínez RN - Reason: IV Fluid Infusing) * 2100 (Due) sodium chloride flush 0.9 % [...] non-viscous solutions use: Peripheral IV = 5 mLMidline or Central Line = 10 mL/lumen For viscous solutions (i.e. blood components, parenteral nutrition, contrast media, or after obtaining blood sample) use: Peripheral IV = 10 mL Midline or Central Line = 20 mL/lumen * 1914 (Not Given - Provider: Hui Gayle RN - Reason: IV Fluid Infusing) * 0832 (Not Given - Provider: Angely Martínez RN - Reason: IV Fluid Infusing) * 2100 (Due) traMADol (ULTRAM) tablet 100 mg 100 mg, Oral, 2 times daily, First dose on Tue09/15/24 at 1145, Until Discontinued * 1157 (Given - Provider: Angely Martínez RN) * 2100 (Due) Vitamin D (CHOLECALCIFEROL) tablet 5,000 Units 5,000 Units, Oral, DAILY, 7 doses, First dose on Tue09/14/24 at 1400, Last dose on Tue09/20/24 [id number], Labeling may look different. 25 dcr=6572 Units. Please double check dosages. * 1602 (Not Given - Provider: Jesse Duron RN - Reason: Patient/family refused) * 0832 (Given - Provider: Angely Martínez RN) Medication Order// 0.9 % sodium chloride infusion (CANCELED) IntraVENous, at 125 mL/hr, CONTINUOUS, Starting on Tue09/14/24 at 0630, Pre-op (day of surgery) * 0748 (New Bag - Provider: JOSSE Oglesby CRNA) * 1040 (New Bag - Provider: JOSSE Oglesby CRNA) * 1117 (Anesthesia Volume Adjustment - Provider: JOSSE Oglesby CRNA) 0.9 % sodium chloride infusion IntraVENous, at 75 mL/hr, CONTINUOUS, Starting on Tue09/14/24 at 1145, For 24 hours, Complete lastbag that is running at 24 hours and then saline lock IV * 1411 (New Bag - Provider: Jesse Duron, RN) * 1719 (Stopped - Provider: Angely Martínez RN) Medication Order// 0.9 % sodium chloride infusion IntraVENous, at 5-250 mL/hr, PRN, if patient receiving piggyback infusions and maintenance fluids are not ordered, Starting on Tue09/14/24 at 1124, For piggyback infusion, administer at same rate aspiggyback for a total of 25 mL. Enter [...] For piggyback infusion, administer at same rate aspiggyback for a total of 25 mL. Enter [...] at 1114, Until Tue09/14/24 at 1129, Intra-op * 1114 (Given - Provider: Urbano Merino DPM) [...] for injection by adding 1 mL of meat smoker-supplied sterile diluent or sterile water for injection [...] LESS THAN 70 mg/dL, repeat treatment and re check blood glucose in 15 minutes x 2. If blood glucose remains LESS THAN 70 mg/dL, notify provider. magnesium sulfate 2000 mg in water 50 mL IVPB 2,000 mg, IntraVENous, at 25 mL/hr, Administer over 2 Hours, PRN, Other, Magnesium Replacement, Starting on Tue09/14/24 at 1124, Mag Lab Replacement Action 1.4-1.6 mg/dL 2,000 mg Total Dose Given as1,000 mg IVPB x 2 doses or 2,000 [...] PRN, Starting on Tue09/14/24 at 1338, Until 12/21/24 at 0734,Pain Severe (7-10), for breakthrough pain, If oral and IV narcotics ordered, use oral first and only use IV if oral is ineffective or cannot take oral. Do Not give oral and IV within 1 hour of each other unless specifically ordered. * 183 (Given - Provider: Jesse Duron RN) * 2205 (Given - Provider: Hui Gayle RN) ondansetron (ZOFRAN) injection 4 mg(Linked Group 4) 4 mg, IntraVENous, EVERY 6 HOURS PRN, Starting on Tue09/14/24 at 1124, Until Discontinued, Nausea,Vomiting, Administer if oral route cannot be used. [...] mg from all sources in 24 hours. * 1959 (Given - Provider: Hui Gayle RN) * 0009 (Given - Provider: Hui Gayle RN) * 0443 (Given - Provider: Hui Gayle RN) oxyCODONE-acetaminophen (PERCOCET) 5-325 MG per tablet 2 tablet (CANCELED) (Linked Group 5) 2 tablet, Oral, EVERY 4 HOURS PRN, Starting on 09/15/24 at 0734, Until 09/15/24 at 1115, For severe pain level 7-10, Maximum dose of acetaminophen is 4000 mg from all sources in 24 hours. * 0831 (Given - Provider: Angely Martínez RN) polyethylene glycol (GLYCOLAX) packet [...] mL/min. Do not chew or crush. Dissolve flavoredtablets completely in 3 to 4 ounces of [...] Tue09/14/24 at 1124, Until Discontinued, Potassium Replacement, Maygive alternative linked oral order (ordered as effervescent, packet, or liquid solution) if patientunable to tolerate tablet. K Lab Replacement Action [...] x 6 doses (60 mEq Total) Under 2.7CALL PROVIDER and administer 10 mEq IVPB x 6 doses (60 mEq Total) Infuse at 10 mEq/hr. Repeat Potassium lab 1 hour after final administration. Protocol not for use in patients with CrCl less than 30 m L/min. sodium chloride flush 0.9 % injection 5-40 [...] Midline or Central Line = 20 mL/lumen Order Group 1: acetaminophen (TYLENOL) tablet 650 [...] on Tue09/14/24 at 1338, Until 09/15/24 at 0734,Pain Moderate (4-6), for breakthrough pain, If oral [...] on Tue09/14/24 at 1338, Until 09/15/24 at 0734,Pain Severe (7-10), for breakthrough pain, If oral [...] Starting on Tue09/14/24 at 1124, Until Discontinued, Nausea,Vomiting, Administer if oral route cannot be used. [...] Tue09/14/24 at 1124, Until Discontinued, Potassium Replacement, Maygive alternative linked oral order (ordered as effervescent, packet, or liquid solution) if patientunable to tolerate tablet. K Lab Replacement Action [...] mL/min. Do not chew or crush. Dissolve flavoredtablets completely in 3 to 4 ounces of [...] x 6 doses (60 mEq Total) Under 2.7CALL PROVIDER and administer 10 mEq IVPB x 6 doses (60 mEq Total) Infuse at 10 mEq/hr. Repeat Potassium lab 1 hour after final administration. Protocol not for use in patients with CrCl less than 30 m L/min. Medication Order//01/2025 aspirin EC tablet 325 mg (CANCELED) 325 mg, Oral, DAILY, First dose on Tue05/30/25 at 1500, Until Discontinued, Do not crush or break. * 1508 (Given - Provider: Collette Piña RN) aspirin EC tablet 81 mg 81 mg, Oral, DAILY, First dose on Tue05/31/25 at 0900, Until Discontinued, Do not crush or break. * 0841 (Given - Provider: Collette Piña RN) atorvastatin (LIPITOR) tablet 40 mg 40 mg, Oral, DAILY, First dose on Tue05/30/25 at 2100, Until Discontinued * 2033 (Given - Provider: Bisi Mercado RN) * 2099 (Due - Provider: Ting Hawthorne [facility]) budesonide-formoterol (SYMBICORT) 160-4.5 MCG/ACT inhaler 2 puff 2 puff, Inhalation, 2 TIMES DAILY RESP, First dose on Tue05/30/25 at 0800, Until Discontinued, Substituted for fluticasone-salmeterol (ADVAIR DISKUS or WIXELA INHUB). * 0932 (Given - Provider: Malinda Bob RCP) * 2030 (Given - Provider: Aniyah Dasilva RCP) * 0910 (Given - Provider: Deb Kevin RCP) * 1999 (Due) cetirizine (ZYRTEC) tablet 10 mg 10 mg, Oral, DAILY, First dose on Tue05/30/25 at 0900, Until Discontinued, Substituted for Fexofenadine (JODIE). * 0838 (Given - Provider: Collette Piña RN) * 0840 (Given - Provider: Collette Piña RN) DULoxetine (CYMBALTA) extended release capsule 60 mg 60 mg, Oral, NIGHTLY, First dose on Tue05/30/25 at 2100, Until Discontinued, Do not crush or break. May add contents of capsule to apple juice or apple sauce, but not chocolate. * 2033 (Given - Provider: Bisi Mercado RN) * 2099 (Due) empagliflozin (JARDIANCE) tablet 10 mg 10 mg, Oral, DAILY, First dose on Tue05/30/25 at 0900, Until Discontinued, Indication of Use: Heart Failure (reduced EF), Note: Discontinuation of SGLT2 inhibitor therapy 3 days prior to surgery or major procedures is recommended given the risk for euglycemic diabetic ketoacidosis., On hold since Tue05/30/2025 at 0457 until manually unheld * 0457 (Held by provider - Provider: Emanuel Danielle MD - Reason: Other) * 0900 (Automatically Held) * 0900 (Automatically Held) fenofibrate (TRICOR) tablet 54 mg 54 mg, Oral, DAILY, First dose on Tue05/30/25 at 2100, Until Discontinued, Substituted for Fenofibrate (Non-Formulary Dose). * 2033 (Given - Provider: Bisi Mercado RN) * 2099 (Due - Provider: Ting Hawthorne [facility]) insulin lispro (HUMALOG,ADMELOG) injection vial 0-8 Units 0-8 Units, SubCUTAneous, 4 TIMES DAILY BEFORE MEALS & NIGHTLY, First dose on Tue05/30/25 at 0700, Until Discontinued, Medium Dose Corrective Algorithm Glucose: Dose: 70-179 No Insulin 180-249 2 Units 250-299 4 Units 300-349 6 Units Over 349 8 Units and notify physician Administer as soon as possible within 60 minutes of last blood glucose check * 0838 (Given - Provider: Collette Piña RN) * 1217 (Given - Provider: Collette Piña RN) * 1615 (Not Given - Provider: Collette Piña RN - Reason: Order parameters not met) * 2038 (Not Given - Provider: Bisi Mercado RN - Reason: Order parameters not met - Comment: BS [id number]) * 0825 (Not Given - Provider: Collette Piña RN - Reason: Order parameters not met) * 1146 (Given - Provider: Collette Piña RN) * 1700 (Due) * 2100 (Due) methocarbamol (ROBAXIN) tablet 500 mg 500 mg, Oral, 3 TIMES DAILY, First dose on Tue05/30/25 at 0900, Until Discontinued * 0838 (Given - Provider: Collette Piña RN) * 1508 (Given - Provider: Collette Piña RN) * 2033 (Given - Provider: Bisi Mercado RN) * 0840 (Given - Provider: Collette Piña RN) * 1400 (Due) * 2100 (Due) metoprolol succinate (TOPROL XL) extended release tablet 25 mg 25 mg, Oral, EVERY EVENING, First dose on Tue05/30/25 at 1800, Until Discontinued, Do not crush or chew. * 1615 (Not Given - Provider: Collette Piña RN - Reason: Patient/family refused) * 1800 (Due) metoprolol succinate (TOPROL XL) extended release tablet 50 mg 50 mg, Oral, DAILY BEFORE BREAKFAST, First dose on Tue05/30/25 at 0700, Until Discontinued, Do not crush or chew. * 0841 (Given - Provider: Collette Piña RN) * 0840 (Given - Provider: Collette Piña RN) montelukast (SINGULAIR) tablet 10 mg 10 mg, Oral, NIGHTLY, First dose on Tue05/30/25 at 2100, Until Discontinued * 2033 (Not Given - Provider: Bisi Mercado RN - Reason: Patient/family refused - Comment: takes in morning) * 2100 (Due) pantoprazole (PROTONIX) tablet 40 mg 40 mg, Oral, DAILY BEFORE BREAKFAST, First dose on Tue05/30/25 at 0700, Until Discontinued, Do not crush or break. Substituted for Omeprazole (PRILOSEC). * 0807 (Not Given - Provider: Collette Piña RN - Reason: Patient/family refused) * 0840 (Given - Provider: Collette Piña RN) pregabalin (LYRICA) capsule 150 mg 150 mg, Oral, 3 times daily, First dose (after last modification) on Tue05/31/25 at 0900, Until Discontinued * 0841 (Given - Provider: Collette Piña RN) * 1500 (Due) * 2100 (Due) pregabalin (LYRICA) capsule 75 mg (CANCELED) 75 mg, Oral, 3 times daily, First dose on Olena 05/30/25 at 0900, Until Discontinued * 0841 (Given - Provider: Collette Piña RN) * 1508 (Given - Provider: Collette Piña RN) * 2033 (Given - Provider: Bisi Mercado RN) rOPINIRole (REQUIP) tablet 4 mg 4 mg, Oral, DAILY, First dose on Olena 05/30/25 at 2100, Until Discontinued * 2033 (Given - Provider: Bisi Mercado RN) * 2100 (Due - Provider: Ting Hawthorne [facility]) sodium chloride 0.9 % bolus 1,000 mL (COMPLETED) 1,000 mL (9.71 mL/kg), IntraVENous, at 1,935.5 mL/hr, Administer over 31 Minutes, ONCE, On Olena 05/30/25 at 0400, For 1 dose * 0356 (New Bag - Provider: Sarah Sunshine RN) * 0430 (Stopped - Provider: Oren Washburn RN) sodium chloride flush 0.9 % injection 10 mL 10 mL, IntraVENous, EVERY 12 HOURS SCHEDULED (2 times per day), First dose on Tue05/30/25 at 0900, Until Discontinued * 0845 (Not Given - Provider: Collette Piña RN - Reason: IV Fluid Infusing) * 2038 (Not Given - Provider: Bisi Mercado RN - Reason: IV Fluid Infusing) * 0843 (Given - Provider: Collette Piña RN) * 2100 (Due) traMADol (ULTRAM) tablet 100 mg 100 mg, Oral, 2 times daily, First dose on Olena 05/30/25 at 1115, Until Discontinued * 1117 (Given - Provider: Collette Piña RN) * 2033 (Given - Provider: Bisi Mercado RN) * 0840 (Given - Provider: Collette Piña RN) * 2100 (Due) Medication Order//01/2025 0.9 % sodium chloride infusion (CANCELED) IntraVENous, at 150 mL/hr, CONTINUOUS, Starting on Olena 9/4/25 at 0515, For 24 hours, Complete last bag that is running at 24 hours and then saline lock IV * 0510 (New Bag - Provider: Oren Washburn, RN) * 1130 (Rate/Dose Verify - Provider: Collette Piña, BREANNA) * 1747 (Rate/Dose Change - Provider: Chyna Hudson, RN) * 1811 (New Bag - Provider: Génesis Singh) * 0049 (New Bag - Provider: Bisi Mercado, BREANNA) * 0528 (Rate/Dose Verify - Provider: Bisi Mercado RN) * 0647 (Stopped - Provider: Sarah Vargas) * 0649 (Stopped - Provider: Sarah Vargas) * 0650 (Stopped - Provider: Collette Piña, BREANNA) * 0831 (Stopped - Provider: Sarah Vargas) Medication Order//01/2025 0.9 % sodium chloride infusion IntraVENous, at 5-250 mL/hr, PRN, if patient receiving piggyback infusions and maintenance fluids are not ordered OR KVO fluids to protect IV site / prevent frequent line interruptions/ long duration, Starting on Olena 05/30/25 at 0457, For piggyback infusion, administer at same rate as piggyback for atotal of 25 mL. Enter 25 mL into dose field and piggyback rate into rate field of order. If piggyback is infusing at a rate less than 100 mL/hr, enter 25 mL into dose field and 100 mL/hr into rate field of order. For KVO fluids, enter rate of 20 mL/hr or less into rate field of order. acetaminophen (TYLENOL) suppository 650 mg(Linked Group 1) 650 mg, Rectal, EVERY 6 HOURS PRN, Starting on Olena 05/30/25 at 0457, Until Discontinued, Pain Mild (1-3) OR per patient request for pain score (4-10), Fever, For temp greater than 100.4 F (38 C), Administer if oral route cannot be used. acetaminophen (TYLENOL) tablet 650 mg(Linked Group 1) 650 mg, Oral, EVERY 6 HOURS PRN, Starting on Olena 05/30/25 at 0457, Until Discontinued, Pain Mild (1-3) OR per patient request for pain score (4-10), Fever, For temp greater than 100.4 F (38 C), Maximumdose of acetaminophen is 4000 mg from all sources in 24 hours. fluticasone (FLONASE) 50 MCG/ACT nasal spray 1 spray 1 spray, Each Nostril, DAILY PRN, Starting on Tue05/30/25 at 0504, Until Discontinued, Allergies ondansetron (ZOFRAN) injection 4 mg(Linked Group 2) 4 mg, IntraVENous, EVERY 6 HOURS PRN, Starting on Tue05/30/25 at 0457, Until Discontinued, Nausea, Vomiting, Administer if oral route cannot be used. ondansetron (ZOFRAN-ODT) disintegrating tablet 4 mg(Linked Group 2) 4 mg, Oral, EVERY 8 HOURS PRN, Starting on Tue05/30/25 at 0457, Until Discontinued, Nausea, Vomiting polyethylene glycol (GLYCOLAX) packet 17 g 17 g, Oral, DAILY PRN, Starting on Olena 05/30/25 at 0457, Until Discontinued, Constipation, First linetherapy for constipation sodium chloride flush 0.9 % injection 10 mL 10 mL, IntraVENous, PRN, Starting on Tue05/30/25 at 0457, Until Discontinued, Line Care, After everyIV line use Order Group 1: acetaminophen (TYLENOL) tablet 650 mgJump to med 650 mg, Oral, EVERY 6 HOURS PRN, Starting on Olena 05/30/25 at 0457, Until Discontinued, Pain Mild (1-3) OR per patient request for pain score (4-10), Fever, For temp greater than 100.4 F (38 C), Maximumdose of acetaminophen is 4000 mg from all sources in 24 hours. Or acetaminophen (TYLENOL) suppository 650 mgJump to med 650 mg, Rectal, EVERY 6 HOURS PRN, Starting on Olena 05/30/25 at 0457, Until Discontinued, Pain Mild (1-3) OR per patient request for pain score (4-10), Fever, For temp greater than 100.4 F (38 C), Administer if oral route cannot be used. Group 2: ondansetron (ZOFRAN-ODT) disintegrating tablet 4 mgJump to med 4 mg, Oral, EVERY 8 HOURS PRN, Starting on Tue05/30/25 at 0457, Until Discontinued, Nausea, Vomiting Or ondansetron (ZOFRAN) injection 4 mgJump to med 4 mg, IntraVENous, EVERY 6 HOURS PRN, Starting on Olena 05/30/25 at 0457, Until Discontinued, Nausea, Vomiting, Administer if oral route cannot be used. 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 Repeat in 2 hours after initial dose if still intra-op. Administer over 5 mins. Reconstitute 2 g vial with 20 mL Sterile Water. Withdraw entire contents., Pre-op (day of surgery) * 0753 (New Bag - Provider: Brittney Mitchell, JOSSE - FORESTRY FOREMAN) dimenhyDRINATE (DRAMAMINE) tablet 50 mg (COMPLETED) 50 mg, Oral, ONCE, 1 dose, On Tue07/23/25 at 0700, Pre-op (day of surgery) * 0657 (Given - Provider: Sahara Briceno RN) sodium chloride flush 0.9 % injection 5-40 mL 5-40 mL, IntraVENous, EVERY 12 HOURS SCHEDULED (2 times per day), First dose on Tue07/23/25 at 0900, Until Discontinued, For Line Patency: Peripheral IV = 5 mL; Midline or Central Line = 10 mL/lumen. If following IV push medication, administer flush at same rate as the IV push. Flush volume is determined by type of infusion therapy being given. For non-viscous solutions use: Peripheral IV = 5 mLMidline or Central Line = 10 mL/lumen For viscous solutions (i.e. blood components, parenteral nutrition, contrast media, or after obtaining blood sample) use: Peripheral IV = 10 mL Midline or Central Line = 20 mL/lumen, PACU only * 0900 (Due) * 2100 (Due) Medication Order/ lactated ringers infusion IntraVENous, at 100 mL/hr, CONTINUOUS, Starting on Tue07/23/25 at 0700, Pre-op (day of surgery) * 0706 (New Bag - Provider: Sahara Briceno RN) * 0742 (NoRateChange - Provider: JOSSE Bajwa CRNA) * 0830 (Paused - Provider: JOSSE Bajwa CRNA - Comment: Switch to gravity) * 0831 (Restarted - Provider: JOSSE Bajwa CRNA) * 0933 (Stopped - Provider: Sarah Espino RN) Medication Order/ 0.9 % sodium chloride infusion IntraVENous, at 5-250 mL/hr, PRN, if patient receiving piggyback infusions and maintenance fluids are not ordered, Starting on Tue07/23/25 at 0838, For piggyback infusion, administer at same rate aspiggyback for a total of 25 mL. Enter 25 mL into dose field and piggyback rate into rate field of order. If piggyback is infusing at a rate less than 100 mL/hr, enter 25 mL into dose field and 100 mL/hr into rate field of order., PACU only droPERidol (INAPSINE) injection 0.625 mg 0.625 mg, IntraVENous, ONCE PRN, 1 dose, Starting on Tue07/23/25 at 0838, Until Discontinued, Nausea, Initial antiemetic therapy., PACU only HYDROmorphone HCl PF (DILAUDID) injection 0.5 mg 0.5 mg, IntraVENous, EVERY 5 MIN PRN, 2 doses, Starting on Tue07/23/25 at 0838, Until Discontinued, Pain Severe (7-10), For Phase I. If Phase II oral narcotics have been administered in the last 60 minutes, do not administer IV narcotics unless specifically approved by provider., PACU only naloxone 0.4 mg in 10 mL sodium chloride syringe IntraVENous, PRN, Opioid Reversal, Starting on Tue07/23/25 at 0838, PRN if respiratory rate is less than 6/min and patient is difficult to arouse then notify physician STAT. Mix 9 mL of sodium chloride 0.9% with 0.4 mg (1 mL) of naloxone (NARCAN) in 10 mL syringe. (Note: dilution is 0.04 mg/mL) Give 0.08 mg (2 mL of special dilution), slow IV push, repeat up to 0.4 mg (10 mL) or until patient isresponsive to physical stimulation and respiratory rate is equal to or greater than 6 breaths/min. Continue to observe, if no response within 3 minutes of administration of 0.4 mg (10 mL) total, repeat dose (0.4 mg as administered previously). Concentration 0.04 mg/mL, PACU only ondansetron (ZOFRAN) injection 4 mg 4 mg, IntraVENous, ONCE PRN, 1 dose, Starting on Tue07/23/25 at 0838, Until Discontinued, Nausea, Secondary antiemetic therapy., PACU only oxyCODONE (ROXICODONE) immediate release tablet 10 mg(Linked Group 1) 10 mg, Oral, PRN, 1 dose, Starting on Tue07/23/25 at 0838, Until Tue07/23/25 at 2359, Pain Severe(7-10), PHASE II, PACU only oxyCODONE (ROXICODONE) immediate release tablet 5 mg(Linked Group 1) 5 mg, Oral, PRN, 1 dose, Starting on Tue07/23/25 at 0838, Until Tue07/23/25 at 2359, Pain Moderate (4-6) OR per patient request for pain score (7-10), PHASE II, PACU only sodium chloride flush 0.9 % injection 5-40 mL 5-40 mL, IntraVENous, PRN, Starting on Tue07/23/25 at 0838, Until Discontinued, Line Care, After every IV [...] mL Midline or Central Line = 20 mL/lumen, PACU only Order Group 1: oxyCODONE (ROXICODONE) immediate release tablet 5 mgJump to med 5 mg, Oral, PRN, 1 dose, Starting on Tue07/23/25 at 0838, Until Tue07/23/25 at 2359, Pain Moderate (4-6) OR per patient request for pain score (7-10), PHASE II, PACU only Or oxyCODONE (ROXICODONE) immediate release tablet 10 mgJump to med 10 mg, Oral, PRN, 1 dose, Starting on Tue07/23/25 at 0838, Until Tue07/23/25 at 2359, Pain Severe(7-10), PHASE II, PACU only Goals (unrecognized section and content) Goals may be documented in a n alternate sectionGoals may be documented in an alternate sectionNo InformationNo InformationGoals may be documented in an alternate section FOR RECORDS PERTAINING TO PATIENTS WHO ARE [...] BE BASED ON THE PRIMARY CLINICAL RECORDS. [facility]. provides no warranty or guarantee of the accuracy or completeness of information in this document.
--- NOTE | 2025-08-07 13:37 | PM.CN ---
Consult Note: HPI Data of Consult Patient: known to practice within the last 3 years Consult date: 08/07/25 Requesting Physician: Suzi Longoria NP Primary Care Provider: Non-Staff Physician, Family Provider: LEESA Consult Narrative Reason for consult: all over pain Narrative: Risa Joshi a 50 year old female with chronic diffuse pain and low back pain presents for evaluation. pt has failed to benefit from > 6 weeks of PT and provider guided HEP for low back pain. she continues to utilize tramadol 100mg BID PRN pain, diclofenac 75mg BID PRN pain, tylenol, pregabalin 150mg TID, ropinirole 4mg HS, robaxin 500-1000mg TID PRN with mild relief. has not been evaluated recently by rheumatology, despite us discussing this for > 12 months. Pain today 9/10 in bilateral shoulders and low back. notes increased pain with standing, walking, bending, activity, weather changes. Patient was evaluated by orthopedics for her hip pain as she previously requested. Patient following with Dr Dominique for bilateral shoulder pain. cc:: CC: Suzi Longoria NP Review of Systems ROS Musculoskeletal Reports: back pain, extremity pain and joint pain [facility] Medical History S/P extracorporeal shock wave therapy ?Z98.890 - Other specified postprocedural states (ICD-10) Ureteral stent displacement ?T83.122A - Displacement of indwelling ureteral stent, initial encounter (ICD-10) Goiter ?E04.9 - Nontoxic goiter, unspecified (ICD-10) RSD (reflex sympathetic dystrophy) ?G90.50 - Complex regional pain syndrome I, unspecified (ICD-10) TMJ (dislocation of temporomandibular joint) ?S03.00XA - Dislocation of jaw, unspecified side, initial encounter (ICD-10) Upper back pain ?M54.9 - Dorsalgia, unspecified (ICD-10) Neck pain ?M54.2 - Cervicalgia (ICD-10) Low back pain ?M54.50 - Low back pain, unspecified (ICD-10) Fibromyalgia ?M79.7 - Fibromyalgia (ICD-10) Neuropathy ?G62.9 - Polyneuropathy, unspecified (ICD-10) Hyperthyroidism ?E05.90 - Thyrotoxicosis, unspecified without thyrotoxic crisis or storm (ICD-10) Heart palpitations ?R00.2 - Palpitations (ICD-10) Angina at rest ?I20.8 - Other forms of angina pectoris (ICD-10) Kidney stone ?N20.0 - Calculus of kidney (ICD-10) Asthma ?J45.909 - Unspecified asthma, uncomplicated (ICD-10) Smoker ?F17.200 - Nicotine dependence, unspecified, uncomplicated (ICD-10) Hypertension ?I10 - Essential (primary) hypertension (ICD-10) High cholesterol ?E78.00 - Pure hypercholesterolemia, unspecified (ICD-10) Diabetes ?E11.9 - Type 2 diabetes mellitus without complications (ICD-10) Surgical History S/P insertion of spinal cord stimulator ?Z96.89 - Presence of other specified functional implants (ICD-10) H/O: hysterectomy ?Z90.710 - Acquired absence of both cervix and uterus (ICD-10) S/P shoulder surgery ?Z98.890 - Other specified postprocedural states (ICD-10) Meds Home Medications and Allergies Home Medications ?Medication ?Instructions ?Recorded ?Confirmed ?Type aspirin 81 mg tablet,delayed 81 mg PO DAILY 02/25/23 02/25/25 History release (Adult Low Dose Aspirin) atorvastatin 80 mg tablet (Lipitor) 80 mg PO DAILY 02/25/23 02/25/25 History fenofibrate micronized PO QDAY 02/25/23 History fluticasone propionate 50 1 spray intranasal DAILY 02/25/23 02/25/25 History mcg/actuation nasal spray,suspension (Flonase Allergy Relief) insulin lispro 200 unit/mL (3 mL) 60 unit subcut TID 02/25/23 02/25/25 History subcutaneous pen (Humalog KwikPen U-200 Insulin) levocetirizine 5 mg tablet (Xyzal) 5 mg PO DAILY 02/25/23 02/25/25 History metoprolol succinate 50 mg PO QDAY 02/25/23 02/25/25 History montelukast 10 mg tablet 10 mg PO QPM 02/25/23 02/25/25 History (Singulair) albuterol sulfate 90 mcg/actuation 2 inh inhalation TID PRN shortness 05/31/23 02/25/25 History aerosol inhaler of breath or wheezing insulin regular hum U-500 conc 500 120 unit subcut BID 07/12/23 02/25/25 History unit/mL(3 mL) subcut pen (Humulin R U-500 (Conc) Insulin Kwikpen) duloxetine 60 mg capsule,delayed 60 mg PO DAILY #30 caps 07/04/24 02/25/25 Rx release naloxone 4 mg/actuation nasal 4 mg intranasal Q2M PRN opioid 07/04/24 02/25/25 Rx spray (Narcan) overdose #2 ea methocarbamol 500 mg tablet See Rx Instructions .Route 10/17/24 02/25/25 Rx .COMPLEX PRN spasms #180 tabs diclofenac sodium 75 mg 75 mg PO BID PRN pain #60 tabs 02/13/25 02/25/25 Rx tablet,delayed release ropinirole 4 mg tablet 4 mg PO HS #30 tabs 03/06/25 Rx empagliflozin 10 mg tablet 10 mg PO DAILY 05/01/25 05/01/25 History (Jardiance) fexofenadine 30 mg tablet 60 mg PO BID 05/01/25 05/01/25 History fluticasone 500 mcg-salmeterol 50 1 inh inhalation BID 05/01/25 05/01/25 History mcg/dose blistr powdr for inhalation (Wixela Inhub) tramadol 50 mg tablet See Rx Instructions .Route 05/30/25 Rx .COMPLEX PRN pain #120 tabs alendronate 70 mg tablet (Fosamax) 70 mg PO QWEEK 06/06/25 06/06/25 History pregabalin 75 mg capsule (Lyrica) 75 mg PO TID #90 caps 06/06/25 Rx pregabalin 75 mg capsule (Lyrica) 75 mg PO TID #90 caps 07/04/25 Rx tramadol 50 mg tablet See Rx Instructions .Route 07/04/25 Rx .COMPLEX PRN pain #120 tabs duloxetine 60 mg capsule,delayed 60 mg PO DAILY #30 caps 07/30/25 Rx release methocarbamol 500 mg tablet See Rx Instructions .Route 07/30/25 Rx .COMPLEX PRN spasms #180 tabs pregabalin 75 mg capsule (Lyrica) 75 mg PO TID #90 caps 07/30/25 Rx tramadol 50 mg tablet See Rx Instructions .Route 07/30/25 Rx .COMPLEX PRN pain #120 tabs Allergies Allergy/AdvReac Type Severity Reaction Status Date / Time Penicillins Allergy Unknown Unknown Verified 02/25/25 07:38 Exam Narrative Exam Narrative: diffuse myofascial pain Constitutional Documenting provider has reviewed patient's vital signs: yes Common normals: no apparent distress, oriented x3, healthy appearing, alert and well nourished General appearance: cooperative HENMT Common normals: normocephalic, hearing grossly normal bilaterally and moist oral mucous membranes Head and scalp: normocephalic Eye Common normals: PERRL Pupil: PERRL Neck & C-Spine Common normals: full ROM General: normal visual inspection Chest Common normals: inspection of chest normal Respiratory Common normals: normal respiratory effort, no retractions and no use of accessory muscles Back & Pelvis Lumbar spine/lower back: ROM limited, pain with ROM and lumbar spinal tenderness Lumbar spinal tenderness location: L3, L4 and L5 Sacroiliac joints: SI joint(s) abnormal Other: strength 5/5 in BLE bilateral sij positive nathan(patricks), gaenslens, thigh thrust, compression test Extremity Common normals: normal to inspection and full ROM Neuro Common normals: oriented x3 Sensorium/orientation: alert Psych Common normals: mental status grossly normal, thought process normal, cooperative, affect normal, speech normal and activity/motor behavior normal Speech: normal speech Thought process: normal thought process Results Additional Findings Additional findings: If on a controlled substance or opioids, I have checked an [place] report on this patient and there are no aberrancies noted in the prescribing history.??If on a controlled substance or opioid a drug screen was completed and reviewed within the last year, and if there has not been a drug screen completed we ordered one today to monitor higher risk, state monitored pain medication use. As part of providing excellent, safe, comprehensive care, the following was completed at our patient's visit: 1. A medication reconciliation and review to ensure accurate knowledge of current/active medications, including asking our patients to inform us about any [id number] medications or herbal remedies/nutritional supplements/alternative remedies. 2. A review to specifically ensure our patients have had annual screening for screening for depression, screening for tobacco use, and screening for unhealthy alcohol use. For concerning screenings had a discussion with the patient, provided patient education, and recommended follow-up with primary care provider when appropriate. If patient noted with a risk of falling, they received education on strength, gait, and balance training to prevent future risk of falling. Portions of this note may have been carried over from the previous visit and updated as appropriate. Please note this office utilizes paper charting in addition to the electronic medical record. A list of current medications, vitals, and PMH is available there as the clinical staff outside of myself do not have access to [employer] charting during the clinic day operations. As part of providing quality comprehensive care the current medications, vitals, and PMH were reviewed in the paper chart. Assessment and Plan Assessment and Plan (1) Sacroiliitis: Assessment and Plan: The patient has had over 3 months of moderate to severe low back and bilateral SIJ pain with functional impairment and inadequate response to conservative care including NSAIDS (unless there are contraindication such as concurrent blood thinners), multiple oral or topical pain medications, and home exercise program/physical therapy.? Patient has completed >6 weeks of guided home exercise program and/or formal physical therapy program without relief of their symptoms.? The Oswestry Disability Index was completed, and the patient scored a 68%.? (2) Fibromyalgia: (3) Lumbar spondylosis: Assessment and Plan: 7-30-24 bilateral L4-5 L5-S1 MBB with >80% improvement in pain and functional ability while anesthetized 9-16-24 bilateral L4-5 L5-S1 MBB with >80% improvement in pain and functional ability while anesthetized 10-15-24 right L4-5 L5-S1 facet RFA >50% improvement in pain and functional ability for at least 6 months, procedure completed with MAC sedation 6-2-25 bilateral L4-5 L5-S1 facet RFA >50% improvement in facet mediated low back pain (4) Lumbar radiculopathy: (5) Chronic prescription opiate use: Assessment and Plan: I feel these medications are improving the patient's quality of life and allow them to tolerate activities of daily living as well as participate in recreational activity.? The patient does not report intolerable side effects. The patient is NOT opioid naive and non-pharmacologic and non-opioid treatment has failed to significantly relieve the patient's pain and improve functionality. The patient has a diagnosis that is related to a somatic or visceral pain etiology. ? ?? I reviewed with the patient the potential risks and side effects with the use of? opioid medications including but not limited to respiratory depression,? sedation, and even . Within the last 12 months I have verified the patient has access to naloxone should? these effects occur. The patient was advised to let? their family know they had Naloxone in case they would need to administer? the medication. I advised the patient to avoid the use of any other? sedation substances including alcohol, THC, and benzodiazepines while? taking opioid medications due to the risk of compounding side effects and? detrimental outcomes. within the last 12 months I have reviewed the [employer], pain treatment agreement and urine drug screen.? ?? A drug screen was completed within the last year, and no aberrancies were noted regarding their use of controlled substances. The patient understands they are subject to the terms and conditions of the pain contract that they have signed. ? ?? I have checked an [place] report on this patient today and there are no aberrancies noted in the prescribing history.? (6) Neuropathy: (7) RSD (reflex sympathetic dystrophy): (8) Lumbar stenosis with neurogenic claudication: (9) Chronic pain syndrome: (10) Chronic hip pain, bilateral: Assessment and Plan: prior hip xray from 03/13/24 shows no OA to left and mild to right hip, however she states her bone density radiologist told her she had severe OA Plan recommend pt be evaluated with [facility] pain [facility] program for FM. patient needs psychiatry, dietary consult, PT/OT, and pain management through a comprehensive center. pt agreeable trial bilateral SIJ injection under fluoroscopy for sacroiliac joint pain, has previously responded well with at least 50% improvement for 3 months continue lyrica back 75mg TID continue tramadol 100mg BID PRN moderate to severe pain, diclofenac 75mg BID PRN pain, duloxetine 60mg daily, robaxin 500-1000mg tid prn pain/spasms f/u with Dr Dominique as planned for bilateral shoulder pain recommend pt contact her safety instructor for evaluation f/u 2 weeks after injection
== END 2025-08-07 12:55 | disposition home or self-care (01) ==
LOC: PM 12:56
PROVIDERS: Visit Provider Nurse Practitioner
DX: M46.1 Sacroiliitis, not elsewhere classified (principal); M79.7 Fibromyalgia; M47.816 Spondylosis without myelopathy or radiculopathy, lumbar region; M54.16 Radiculopathy, lumbar region; Z79.891 Long term (current) use of opiate analgesic; G62.9 Polyneuropathy, unspecified; G90.50 Complex regional pain syndrome I, unspecified; M48.062 Spinal stenosis, lumbar region with neurogenic claudication; M25.551 Pain in right hip; M25.552 Pain in left hip
CPT/HCPCS: G0463

== ENCOUNTER 2025-08-19 09:04 | Day surgery (SDC) | payer OTHER, SELFPAY ==
--- OUTSIDE RECORDS SUMMARY | 2025-08-05 09:45 | XMS_ITS ---
Author Organization [facility] Address [address] [place] [address] Care Team Providers Care Nurse Head Name Role Ryder Singleton Primary Care Provider Unavailab Eric Wick Unavailable [phone] REASON FOR VISIT bi-lateral shoulder MRI's, [facility] MRI Encounters Encounter Location Date Provider Diagnosis [facility] [facility] [address] [place] [address] 08/05/2025 Eric Dominique Plan Of Treatment Next Appt Details Provider Name:Eric Sherman and, 09/11/2025 01:15:00 PM, [address] [facility], [place], [address], Provider Name:Eric Sherman and, 10/23/2025 01:15:00 PM, [address] [facility], [place], [address], Progress Notes * VIRGIL WARNERDOB: 3 (50 yo F)Acc No.[id number]:08/05/2025 Patient:?VIRGIL WARNER :?Eric Dominique, MDDOB:1975???Age:50 Y ???Sex:FemaleDate:08/05/2025Phone:[phone]: [address] [place], [place]Pcp:CHERYL Mccray Subjective: * Chief Complaints: * 1 . bi-lateral shoulder MRI's, [facility] MRI. * Medical History: Objective: * Vitals: Assessment: Plan: * Treatment: Forms: * Images: * Electronic signature of Eric Dominique MD on 08/19/2025 at 09:08 AM ESTSign off status: Pending * Provider: Cheo Dominique MD Date: 10/05/2024 Generated for Printing/Faxing/eTransmitting on:?08/19/2025 09:08 AM EST
--- OUTSIDE RECORDS SUMMARY | 2025-08-09 14:06 | XMS_ITS | Encounter Summary ---
Author Organization [facility] 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 - [employer] Primary Care Provider Encounter Details DateTypeDepartmentCare Team (Latest Contact Info)Ghgsxkmmetr32/14/2025 2:06 PM EST - 08/09/2025 11:59 PM ESTHospital Encounter [facility] Specialty Clinic ([facility]) [address] [place] [address] Discharge Disposition: Home or Self Care Social History Tobacco UseTypesPacks/DayYears UsedDateSmoking Tobacco: Every JjaGrtnengtyl399 Smokeless Tobacco: NeverAlcohol UseStandard Drinks/WeekCommentsNever0 (1 standard drink = 0.6 oz pure alcohol)AUDIT-CAnswerDate RecordedQ1: How often do you have a drink containing alcohol?Never06/11/2023Q2: How many drinks containing alcohol do you have on a typical day when you are drinking?Patient does not drink06/11/2023Frequency of Binge DrinkingNot on file06/11/2023Overall Financial Resource Strain (CARDIA)AnswerDate RecordedHow hard is it for you to pay for the very basics like food, housing, medical care, and heating?Patient hpktboqy92/22/2024HQ-2AnswerDate RecordedPHQ-9 Total Mlraj324PRAPARE - TransportationAnswerDate RecordedIn the past 12 months, has lack of transportation kept you from medical appointments or from getting medications?No 01/17/2025In the past 12 months, has lack of transportation kept you from meetings, work, or from getting things needed for daily living?No01/17/2025 Housing Stability Vital SignAnswerDate RecordedUnable to Pay for Housing in the Last YearNot on file09/28/2023Number of Places Lived in the Last YearNot on file 09/28/2023In the last 12 months, was there a time when you did not have a steady place to sleep or slept in ashelter (including now)?Patient drwuhcfm12/03/2024 Housing Stability Vital SignAnswerDate RecordedIn the last 12 months, was there a time when you were not able to pay the mortgage or rent on time?No05/30/2025In the past 12 months, how many times have you moved where you were living?0 05/30/2025t any time in the past 12 months, were you homeless or living in a [place] (including now)?No05/30/2025UDIT-CAnswerDate RecordedQ1: How often do you have a drink containing alcohol?Never05/30/2025Q2: How many drinks containing alcohol do you have on a typical day when you are drinking?Patient does not drink05/30/2025Q3: How often do you have six or more drinks on one occasion?Never05/30/2025Hunger Vital SignAnswerDate RecordedWithin the past 12 months, you worried that your food would run out before you got the money to buy more.Never true05/30/2025Within the past 12 months, the food you bought just didn't last and you didn't have money to get more.Never true05/30/2025PRAPARE - TransportationAnswerDate RecordedIn the past 12 months, has lack of transportation kept you from medical appointments or from getting medications?No 05/30/2025In the past 12 months, has lack of transportation kept you from meetings, work, or from getting things needed for daily living?No05/30/2025HC UtilitiesAnswerDate RecordedIn the past 12 months has the electric, gas, oil, or water company threatened to shut off services in your home?No05/30/2025 Interpersonal Safety Domain Source: IP Abuse ScreeningAnswerDate Recorded Physical ooouzXmvomc76/28/2025Verbal jkryqZvekxk99/28/2025Emotional abuseDenies 07/23/2025Financial xwuftFfnrci51/28/2025Sexual wdphsRqbwpy99/28/2025 CommentsNoSex and Gender InformationValueDate RecordedSex Assigned at Bmzunp0701/01/2025 10:17 AM EDTLegal HswZhpakm03/10/2013 1:17 PM ESTGender VoocpujvIxluiv94/08/2025 10:17 AM EDTSexual OrientationNot on filedocumented as of this encounter Last Filed Vital Signs Vital SignReadingTime TakenCommentsBlood Jjmxpkrx431/51110/09/2024 2:25 PM EST Zfomt076508/09/2025 2:25 PM XXPIolmyynpexa05.3 ??C (97.3 ??F)08/09/2025 2:25 PM ESTRespiratory Cudl657910/09/2024 2:25 PM ESTOxygen Saturation--Inhaled Oxygen Concentration--Weight--Height--Body Mass Index--documented in this encounter Discharge Instructions * Discharge Instructions* Vanna Thao RN - 08/09/2025 2:44 PM EST Verbally reviewed discharge instructions for care and follow up. Previous print out of these instructions were given with prior treatment.Patient verbalized understanding of these instructions. Today's copy offered and declined. documented in this encounter Medications at Time of Discharge MedicationSigDispense QuantityRefillsLast FilledStart DateEnd Date cetirizine (ZYRTEC) 10 MG tablet Take 1 tablet by mouth once daily 90 tablet azelastine (ASTELIN) 0.1 % nasal spray 1 spray by Nasal route in the morning and at bedtime aspirin 81 MG EC tablet Take 1 tablet by mouth daily 30 tablet methocarbamol (ROBAXIN) 500 MG tablet Take 1 tablet by mouth 3 times daily 90 tablet traMADol (ULTRAM) 50 MG tablet Take 2 tablets by mouth in the morning and at bedtime. alendronate (FOSAMAX) 70 MG tablet Indications:Other osteoporosis without current pathological fractureTake 1 tablet by mouth every 7 days 14 tablet 05/28/2025 atorvastatin (LIPITOR) 40 MG tablet Take 1 tablet by mouth daily 90 tablet fenofibrate (TRICOR) 145 MG tablet Take 1 tablet by mouth daily 90 tablet pregabalin (LYRICA) 150 MG capsule Take 1 capsule by mouth in the morning, at noon, and at bedtime.05/15/2025 fexofenadine (JODIE) 180 MG tablet Take 1 tablet by mouth every bjmirar6504/30/2025 fluticasone-salmeterol (ADVAIR) 500-50 MCG/ACT AEPB diskus inhaler Inhale 1 puff into the lungs in the morning and at ehuppqj0404/30/2025 triamcinolone (KENALOG) 0.025 % cream Indications:Eczema of external ear, bilateralApply topically 2 times daily. 15 g 04/25/2025 montelukast (SINGULAIR) 10 MG tablet Indications:Seasonal allergic rhinitis due to pollen,Exacerbation of asthma, unspecified asthma severity, unspecified whether persistentTAKE 1 TABLET BY MOUTH AT BEDTIME 90 tablet HUMALOG KWIKPEN 200 UNIT/ML SOPN pen 11/08/2024 metoprolol succinate (TOPROL XL) 50 MG extended release tablet Indications:History of syncope,Essential hypertension,Tobacco abuse,Mixed hyperlipidemia,SOB (shortness of breath),Bilateral leg edemaTake 1 tablet by mouth every morning (before breakfast) 90 tablet fluticasone (FLONASE) 50 MCG/ACT nasal spray Indications:Seasonal allergic rhinitis due to pollenUse 2 spray(s) in each nostril once daily 16 g HUMULIN R U-500 KWIKPEN 500 UNIT/ML SOPN concentrated injection pen 09/02/2024 JARDIANCE 10 MG tablet 1 tablet daily06/12/2024 pioglitazone (ACTOS) 30 MG tablet Take 1 tablet by mouth daily06/12/2024 diclofenac (VOLTAREN) 75 MG EC tablet 06/18/2021 DULoxetine (CYMBALTA) 60 MG extended release capsule Take 1 capsule by mouth btefokc5001/29/2021 Insulin Pen Needle 30G X 8 MM MISC Indications:Diabetes mellitus type 2 with complications, uncontrolled1 each by Does not apply route 5 times daily 150 each rOPINIRole (REQUIP) 4 MG tablet TAKE 1 TABLET DAILY 90 tablet documented as of this encounter Progress Notes * Vanna Thao RN - 08/09/2025 2:15 PM EST Allergy injection flow sheet Identification of own vial of serum Delayed reaction URI with or without wheezing Time of injection Discharge time Yes No No 0240 [id number] Injection Schedule Concentration Dose Location Vial Expiration Date Reviewed RED A 1.0ML LEFT ARM YES RED B 1.0ML RIGHT ARM YES Injection given by: GABRIEL CARLOS Injection site checked upon discharge by: GABRIEL CARLOS Comments: no local Reminder: document all injections in the allergy binder. documented in this encounter Plan of Treatment DateTypeDepartmentCare Team (Latest Contact Info)Pbbixcwifze77/25/2025 2:00 PM ESTAppointment [facility] ([facility]) [address] [place] [address] Dixon.09/09/2025 3:40 PM ESTOffice Visit [facility] [address] [place] [address] Ryder Lemos, [employer]LE TR[employer] DRIVER - [employer] [address] [place] [address] Pre-Op Clearance 10/04/25 @ [facility] (Form on file)Labs/EKG/CXR to be completed 1 wk prior10/08/2025 1:20 PM ESTOffice Visit [facility] Part of [address] [address] Nathan Ardon MD [address] [place] [address] [place] [phone] 3 month follow up10/10/2025 4:00 PM ESTAppointment [facility] [address] [place] [address] epic/pt10/24/2025 1:00 PM ESTOffice Visit [facility] Part of [address] [place] [id number] Preethi Tidwell, [employer]LE TRUCK DRIVER - [employer] [address] [place] [address] [address] [place] [address] 3M KUBdocumented as of this encounter Visit Diagnoses Not on filedocumented in this encounter Care Teams Team MemberRelationshipSpecialtyStart DateEnd Date Might, Ryder Combs, [employer]LE TRUCK DRIVER - [employer] PCP - GeneralFamily Nurse Practitioner05/10/18documented as of this encounter
--- OUTSIDE RECORDS SUMMARY | 2025-08-14 08:30 | XMS_ITS ---
Author Organization [facility] Address [address] [place] [address] Care Team Providers Care Pigment Making Supervisor Name Role Phone Might Ryder LUNA Primary Care Provider UnavailEric Adamson Unavailable [phone] Allergies Allergen (clinical drug ingredient) Drug/Non Drug Allergy documented on EMR Reaction Allergy Type Onset Date Status penicillin (uncoded)hivesAllergyActive REASON FOR VISIT bi-lateral shoulder MRI's, [facility] MRI Medications Medication SIG (Take, Route, Frequency, Duration) Notes Start Date End Date Status methocarbamol 500 mg TAKE 1 TO 2 TABLETS BY MOUTH THREE TIMES DAILY NEEDED FOR SPASMS.; Duration: 30 Days Activeropinirole hcl 4 MG; Duration: 30 DaysActiveMetoprolol Succinate ER 50 mg TAKE 1 TABLET BY MOUTH ONCE DAILY IN THE MORNING BEFORE BREAKFAST; Duration: 30 DaysActiveMontelukast Sodium 10 MG; Duration: 30 DaysActiveTRAMADOL HCL ER 50 MG ; Duration: 30 DaysActivepregabalin 75 mgTAKE 1 CAPSULE BY MOUTH THREE TIMES DAILY FOR 30 DAYS; Duration: 30 DaysActivepregabalin 75 mg; Duration: 30 Days ActiveFEXOFENADINE HCL 180 MG; Duration: 30 DaysActiveCETIRIZINE HCL 10 MG; Duration: 90 DaysActive Social History Tobacco Use: Social History Observation Description Date Details (start date - stop date) Current Smoker NA - NA AUDIT-C (Standard) Question Answer Notes Did you have a drink containing alcohol in the p ast year? No Sftuah7UorssbmbwvegwzNxcgslkbHrxevtl Control (Standard) Question Answer Notes Tobacco use: Current smoker Problems Problem Type SNOMED Code ICD Code Onset Dates Problem Status W/U Status Risk Notes Problem Bursitis of right sh oulder (254770572385979) Bursitis of right shoulder (M75.51) ActiveconfirmedProblemTendonitis of right shoulder (2227350783224649)Right shoulder tendonitis (M75.81)Activeconfirmed Vital Signs Height 5'6 in 08/14/2025 Weight 217 lbs 08/14/2025 BMI 35.02 08/14/2025 Encounters Encounter Location Date Provider Diagnosis [facility] [address] [place] [address] 08/14/2025 Eric Dominique Bursitis of right shoulder M75.51 and Right shoulder tendonitis M75.81 Assessments Encounter Date Diagnosis (ICD Code) Assessment Notes Treatment Notes Treatment Clinical Notes Section Notes 08/14/2025 Bursitis of right shoulder (ICD- 10 - M75.51) 08/14/2025Right shoulder tendonitis (ICD-10 - M75.81)08/14/2025Other For her right shoulder pain with bursitis and tendinitis and low-grade tear she is interested in a corticosteroid injection. She will follow-up on September 11 for this injection given she is scheduled for a lumbar injection in the near future. For left shoulder rotator cuff tear A1c is greater than8. Additionally she is scheduled to have sinus surgery in early September. She will follow-up in 2 months for her left shoulder and at that time her A1c is below 8 and she has recovered from her sinus surgery we would consider surgery for her left shoulder. Import medication Plan Of Treatment Treatment Notes Assessment Notes Other For her right shoulder pain with bursitis and tendinitis and low-grade tear she is interested in a corticosteroid injection. She will follow-up on September 11 for this injection given she is scheduled for a lumbar injection in the near future. For left shoulder rotator cuff tear A1c is greater than 8. Additionally she is scheduled to have sinus surgery in early September. She will follow-up in 2 months for her left shoulder and at that time her A1c is below 8 and she has recovered from her sinus surgery we would consider surgery for her left shoulder. Import medication Next Appt Details Follow Up: 10 weeks, Reason: Provider Name:Eric Jerez, 09/11/2025 01:15:00 PM, [address], [place], [address], Provider Name:Eric Sherman and, 10/23/2025 01:15:00 PM, [address] [facility] , [address], [address], Progress Notes * VIRGIL WARNERDOB: 3 (50 yo F)Acc No.[id number]:08/14/2025 Patient:?VIRGIL WARNER :?Eric Dominique, MDDOB:1975???Age:50 Y ???Sex:FemaleDate:08/14/2025Phone:[phone]:[address] [place], [place]Pcp:CHERYL Mccray Subjective: * Chief Complaints: * 1 . bi-lateral shoulder MRI's, [facility] MRI. * HPI: ???General Follow Up Information:? Patient presents today for follow-up of her bilateral shoulderMRI scans. She continues to have bilateral shoulder pain with activities of daily living. * Medical History: A sthma/COPD, Respiratory problems:, [...] C urrent smoker. * Medications: T aking pregabalin 75 mg capsule , Taking pregabalin 75 mg capsule TAKE 1 CAPSULE BY MOUTH THREE TIMES DAILY FOR 30 DAYS , Taking TRAMADOL HCL ER 50 MG TABLET , Taking Montelukast Sodium 10 MG TABLET , Taking Metoprolol Succinate ER 50 mg tablet, extended release TAKE 1 TABLET BY MOUTH ONCE DAILY IN THE MORNING BEFORE BREAKFAST , Taking ropinirole hcl 4 MG TABLET , Taking methocarbamol 500 mg tablet TAKE 1 TO 2 TABLETS BY MOUTH THREE TIMES DAILY NEEDED FOR SPASMS. , Taking CETIRIZINE HCL 10 MG TABLET , Taking FEXOFENADINE HCL 180 MG TABLET , Discontinued Lasix , Discontinued traMADol , Discontinued metoprolol , Discontinued Tylenol , Discontinued albuterol , Discontinued estradiol , Discontinued aspirin , Discontinued DULoxetine , Discontinued diclofenac , Discontinued rOPINIRole , Discontinued lisinopril , Discontinued Flonase Allergy Relief , Discontinued HumaLOG , Discontinued fenofibrate , Discontinued atorvastatin , Discontinued baclofen , Discontinued gabapentin , Medication List reviewed and reconciled with the patient * Allergies: P enicillin: Hives. Objective: * Vitals: H t: 5'6 , Wt: 217 lbs, BMI:35.02. * Examination: ???General examination: ???Both shoulders today have pain and weakness with resisted rotator cuff testing. ???MRI Imaging Studies: ???MRI report and images of her left shoulder reviewed and show a full-thickness minimally retracted tear of the supraspinatus with partial-thickness tearing of the subscapularis and spinatus which is low-grade. Mild osteoarthritis of glenohumeral joint. Right shoulder MRI scan showslow-grade partial-thickness tears of the rotator cuff with mild glenohumeral joint arthritis. Bursitis and tendinitis is present. ??? Assessment: * Assessment: 1.?Bursitis of right shoulder - M75.51 (Primary)???2.?Right shoulder tendonitis - M75.81??? Plan: * Treatment: Notes: For her right shoulder pain with bursitis and tendinitis and low-grade tear she is interested in a corticosteroid injection. She will follow-up on September 11 for this injection given she is scheduled for a lumbar injection in the near future. For left shoulder rotator cuff tear A1c is greater than 8. Additionally she is scheduled to have sinus surgery in early September. She will follow-up in 2 months for her left shoulder and at that time her A1c is below 8 and she has recovered from hersinus surgery we would consider surgery for her left shoulder. Import medication?? * Follow Up: 1 0 weeks Forms: * Images: * Electronic signature of Eric Dominique MD on 08/19/2025 at 09:08 AM ESTSign off status: Pending * Provider: Cheo Dominique MD Date: 10/14/2024 Generated for Printing/Faxing/eTransmitting on:?08/19/2025 09:08 AM EST History and Physical Notes * HPI (History of Present Illness) CategorySub-CategoryDetailNotesCategory NotesGeneral Follow Up Information Patient presents today for follow-up of her bilateral shoulder MRI scans. She continues to have bilateral shoulder pain with activities of daily living. Examination CategorySub-CategoryDetailNotesCategory NotesGeneral examinationBoth shoulders today have pain and weakness with resisted rotator cuff testing.MRI Imaging StudiesMRI report and images of her left shoulder reviewed and show a full- thickness minimally retracted tear of the supraspinatus with partial-thickness tearing of the subscapularis and spinatus which is low-grade. Mild osteoarthritis of glenohumeral joint. Right shoulder MRI scan shows low-grade partial-thickness tears of the rotator cuff with mild glenohumeral joint arthritis. Bursitis and tendinitisis present.
--- OUTSIDE RECORDS SUMMARY | 2025-08-19 09:08 | XMS_ITS | Clinical Summary ---
Author [facility] Address [facility] [address] [place] [address] Care Team Providers Care Heel Shaper Name Role Phone Unavailable Primary Care Provider Unavailabl e Social History Tobacco UseTypesPacks/DayYears UsedDateSmoking Tobacco: Never AssessedChildcare AnswerDate CifmyzxrKscdgmwgePpgasud36/12/2019EmploymentAnswerDate Recorded DmakpqgpqfQlrigeo36/12/2019CommentsUnknownSex and Gender Information ValueDate RecordedSex Assigned at BirthNot on fileLegal TuxYipvlg44/06/2015 12:04 PM EDTGender IdentityNot on fileSexual OrientationNot on file Plan of Treatment Not on file Medical Devices Not on file
--- OUTSIDE RECORDS SUMMARY | 2025-08-19 09:08 | XMS_ITS | Patient Health Record ---
Author Organization [facility] Address [address] [place] [address] Care Team Providers Care Pinion Sorter Name Role Phone Might Ryder LUNA Primary Care Provider Eric Scott Unavailable [phone] Allergies Allergen (clinical drug ingredient) Drug/Non Drug Allergy documented on EMR Reaction Allergy Type Onset Date Status penicillin (uncoded)hivesAllergyActive Results Component Value Reference Range Notes MRI SHOULDER LEFT WO CONTRAS T (Not yet reviewed by provider) Interpretation: Performing Lab: Notes/Report: EXAMINATION: Performed at: [address] [place] [facility] MRI SHOULDER RIGHT WO CONTRA ST (Not yet reviewed by provider) Interpretation: Performing Lab: Notes/Report: EXAMINATION: Performed at: [address] [place] [address] Reason For Referral Reason APPROVED ......Obta[place] n authorization for right shoulder MRI Diagnosis 1 Acute pain of right shoulder (M25.511) Referral Organization [facility] Referring Provider First Name Eric Referring Provider Last Name Catina Referring Provider Speciality Orthopedic Surgery Referred Organization [facility] Radiology Procedure 1 MRI Joint Upper Ext w/o Dye ([id number]) General Notes Diana Duff 025 04:19:35 PM >PER HUGH, SHOWS A DUPLICATE. THIS IS FOR THE RIGHT. CALLED [facility], PER DEEPTHI, WILL START OVER THE PHONE. PENDING [facility] TRX #[id number] NEED CLINICAL UPLOADEDSherin Amy 07/08/2025 04:31:57 PM >NEED DICTATIONRichelle Monica 07/10/2025 12:47:29 PM >doneSherin Amy 07/10/2025 01:11:17 PM >STILL PENDINGSherin Amy 07/15/2025 08:27:50 AM >APPROVED PER [facility] Authorization #[id number] Tracking #[id number] VALID 07/08/2025-08/22/2025 COPY IN CHART MA NOTIFED REF FAXED TO JASPER Referral Priority Routine Reason APPROVED .....Obtain authorization for left shoulder MRI Diagnosis 1 Acute pain of left s calvin (M25.512) Referral Organization [facility] Referring Provider First Name Eric Referring Provider Last Name [place] Referring Provider Speciality Orthopedic Surgery Referred Organization [facility] Radiology Procedure 1 MRI Joint Upper Ext w/o Dye ([id number]) General Notes Diana Duff 025 04:13:44 PM >APPROVED DC [facility] Authorization #[id number] Tracking #[id number] VALID 07/09/2025-08/23/2025 COPY IN CHART MA NOTIFIED REF FAXED TO Claudio [place] Kimberly 07/09/2025 03:24:47 PM > Faxed order to [facility] Referral Priority Routine Medications Medication SIG (Take, Route, Frequency, Duration) Notes Start Date End Date Status FEXOFENADINE HCL 180 MG ; Duration: 30 Days ActiveCETIRIZINE HCL 10 MG; Duration: 90 DaysActivemethocarbamol 500 mgTAKE 1 TO 2 TABLETS BY MOUTH THREE [...] 30 DaysActivepregabalin 75 mg; Duration: 30 Days Active Social History Tobacco Use: Social History Observation Description Date Details (start date - stop date) Current Smoker NA - NA AUDIT-C (Standard) Question Answer Notes Did you have a drink containing alcohol in the p ast year? No Xpaswx2ViopaspluqplfdOhchqvbiStugiod Control (Standard) Question Answer Notes Tobacco use: Current smoker Problems Problem Type SNOMED Code ICD Code Onset Dates Problem Status W/U Status Risk Notes Problem Bursitis of right sh oulder (153656898136090) Bursitis of right shoulder (M75.51) ActiveconfirmedProblemTendonitis of right shoulder (8651324821715391)Right shoulder tendonitis (M75.81)ActiveconfirmedProblemShoulder joint pain (912292183)Pain, joint, shoulder, left (M25.512)Activeconfirmed Vital Signs Height 5'6 in 08/14/2025 Hkinzt166 lbs110/14/2024BMI35.02110/14/2024 Encounters Encounter Location Date Provider Diagnosis [facility] [address] [place] [address] [address] [place] [address] 08/14/2025 Eric Dominique Bursitis of right shoulder M75.51 and Right shoulder tendonitis M75.81 [facility] [address] [place] [address] 07/08/2025 Eric Dominique Acute pain of left shoulder M25.512 and Acute pain of right shoulder M25.511 Assessments Encounter Date Diagnosis (ICD Code) Assessment Notes Treatment Notes Treatment Clinical Notes Section Notes 07/08/2025 Acute pain of left shoulder (ICD -10 - M25.512) 5Acute pain of right shoulder (ICD-10 - M25.511)08/14/2025ursitis of right shoulder (ICD-10 - M75.51)08/14/2025Right shoulder tendonitis (ICD-10 - M75.81)08/14/2025Other For her [...] surgery for her left shoulder. Import medication 07/08/2025Other For bilateral shoulder pain and weakness after her falls she would like to proceed with MRI scans to evaluate for rotator cuff tears. She will follow-up once the studies are complete. Import medication Plan Of Treatment Pending Test Test Name Order Date MRI : Shoulder W/O Contrast Right - 7322 1 07/08/2025 MRI : Shoulder W/O Contrast Left - 17538 01/11/2024 PT 2024 MRI SHOULDER LEFT WO CONTRAST 08/05/2025 MRI SHOULDER RIGHT WO CONTRAST [facility]- SHOULDER 3 VIEW RIGHT 24025 025 [facility]- SHOULDER 3 VIEW LEFT 94213 07/08/20 MRI : Shoulder W/O Contrast Left - 05733 07/08/2025 Next Appt Details Provider Name:Eric Sherman and, 09/11/2025 01:15:00 PM, [address], [place] [address], [place], [address], Provider Name:Eric Sherman and, 10/23/2025 01:15:00 PM, [address], [address], [place], [address], Insurance Providers Payer Name Payer Address Payer Phone Subscriber Number Group Number Insured Name Patient Relationship to Insured Coverage Start Date Coverage End Date [place] [address] [address] [place] [address] [id number] JESUS WARNERelf - [facility] the [facility] Data reBounces [address] [place] [id number], KIMBERLYSelf - patient is the [id number] 2024 Medical (General) History Medical History History ICD Code Asthma/COPD Respiratory problems:Heart problems:DiabetesGI Problems:High Blood Pressure DepressionKidney troubleSleep apneaCPAP Machine: YesDo you use the CPAP machine? YesDrug AllergiesSurgical History Surgery Date(Month/Year) Spinal stimulator Right shoulder
--- OUTSIDE RECORDS SUMMARY | 2025-08-19 09:08 | XMS_ITS | Clinical Summary ---
Author Organization [facility] 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 Name Role Phone Ryder Lemos HEALTH ADVOCATE - OUTSOLE PARAFFINER Primary Care Provider Allergies Active AllergyReactionsCriticalityNoted NtneAwrdijmtUwatajkilsvSwuoKnd96/26/2013 Medications MedicationSigDispense QuantityRefillsLast FilledStart DateEnd DateStatus rOPINIRole (REQUIP) 4 MG tablet TAKE 1 TABLET DAILY 90 tablet Active Insulin Pen Needle 30G X 8 MM MISC Indications:Diabetes mellitus type 2 with complications, uncontrolled1 each by Does not apply route 5 times daily 150 each Active DULoxetine (CYMBALTA) 60 MG extended release capsule Take 1 capsule by mouth yrmsrcf2101/29/2021ctive diclofenac (VOLTAREN) 75 MG EC tablet 06/18/2021ctive JARDIANCE 10 MG tablet 1 tablet daily06/12/2024ctive pioglitazone (ACTOS) 30 MG tablet Take 1 tablet by mouth daily06/12/2024ctive acetaminophen (TYLENOL) 500 MG tablet Take 1 tablet by mouth 3 times daily for 14 days 42 tablet 07/26/2024ctive fluticasone (FLONASE) 50 MCG/ACT nasal spray Indications:Seasonal allergic rhinitis due to pollenUse 2 spray(s) in each nostril once daily 16 g 5Active HUMULIN R U-500 KWIKPEN 500 UNIT/ML SOPN concentrated injection pen 4Active metoprolol succinate (TOPROL XL) 50 MG extended release tablet Indications:History of syncope,Essential hypertension,Tobacco abuse,Mixed hyperlipidemia,SOB (shortness of breath),Bilateral leg edemaTake 1 tablet by mouth every morning (before breakfast) 90 tablet 5Active HUMALOG KWIKPEN 200 UNIT/ML SOPN pen 5Active montelukast (SINGULAIR) 10 MG tablet Indications:Seasonal allergic rhinitis due to pollen,Exacerbation of asthma, unspecified asthma severity, unspecified whether persistentTAKE 1 TABLET BY MOUTH AT BEDTIME 90 tablet 5Active triamcinolone (KENALOG) 0.025 % cream Indications:Eczema of external ear, bilateralApply topically 2 times daily. 15 g 5Active fexofenadine (JODIE) 180 MG tablet Take 1 tablet by mouth every wdywdyp02/05/2025Active fluticasone-salmeterol (ADVAIR) 500-50 MCG/ACT AEPB diskus inhaler Inhale 1 puff into the lungs in the morning and at znjlybq12/05/2025Active pregabalin (LYRICA) 150 MG capsule Take 1 capsule by mouth in the morning, at noon, and at bedtime.5Active fenofibrate (TRICOR) 145 MG tablet Take 1 tablet by mouth daily 90 tablet 5Active alendronate (FOSAMAX) 70 MG tablet Indications:Other osteoporosis without current pathological fractureTake 1 tablet by mouth every 7 days 14 tablet 5Active Additional Information Patient taking differently:70 mg Oral EVERY 7 DAYS,tuesday, Reported on 07/23/2025 atorvastatin (LIPITOR) 40 MG tablet Take 1 tablet by mouth daily 90 tablet 5Active traMADol (ULTRAM) 50 MG tablet Take 2 tablets by mouth in the morning and at bedtime.Active aspirin 81 MG EC tablet Take 1 tablet by mouth daily 30 tablet 5Active methocarbamol (ROBAXIN) 500 MG tablet Take 1 tablet by mouth 3 times daily 90 tablet 5Active azelastine (ASTELIN) 0.1 % nasal spray 1 spray by Nasal route in the morning and at bedtimeActive cetirizine (ZYRTEC) 10 MG tablet Take 1 tablet by mouth once daily 90 tablet 5Active cetirizine (ZYRTEC) 10 MG tablet Take 1 tablet by mouth daily 90 tablet Discontinued Active Problems ProblemNoted DateDiagnosed DateKidney stone07/01/2025Orthostatic hypotension 05/31/2025Severe obesity (BMI >= 40)05/31/2025OSA (obstructive sleep apnea) 05/31/20251289Lkmznnhsbsm42/05/2025KI (acute kidney injury)05/30/2025Multiple closed fractures of metatarsal bone of left foot09/14/2024islocation of tarsometatarsal joint of left foot09/14/2024harcot's joint of foot, left 09/14/20244500Mxjycazz69/10/2024Multiple closed tarsal fractures, left, initial qwfaqsfbm10/28/2024losed fracture of tarsal and metatarsal bones of left foot 07/23/2024Lisfranc dislocation, left, initial sepsvxfvn41/28/2024Type 2 diabetes mellitus with Charcot joint toujahycwhj54/28/2024harcot joint of left foot 07/23/2024cquired posterior equinus, left07/23/2024harcot ankle, left 07/17/2024losed dislocation of tarsal joint of left foot07/17/2024Spinal stenosis, lumbar region with neurogenic hdvozeypyohh05/01/2024Myalgia, other site12/08/2023rimary osteoarthritis, left ahmymktq80/21/2023ain in left /26/2023Syncope and voyapwpy98/16/2023cute lmjispvhv95/15/2023Other muscle spasm06/09/2023Nevus of abdominal wall03/24/2022bnormal LFTs03/09/2021 Fatty liver03/09/2021Multiple joint pain09/16/2020Essential hypertension 12/23/20178627Fmmonvmaysrg12/30/2018Tobacco abuse12/21/2017Perirectal abscess 12/20/2017Idiopathic acute govkuisvnmom51/11/5641Hmxasosqbgkrfahpudte42/11/2015 SIRS without infection with organ pgzfinzbbdf22/10/2015Renal bxizuv3408/13/2013 Gross yembveojv48/24/2013History of kidney wffhot3507/19/2013Controlled type 2 diabetes mellitus with diabetic polyneuropathy, with long-term current use of trsjhpv4307/03/2013Ureteric apbefitb48/08/2013Pain in upper limb01/31/2013Diabetic xqyyilvezr02/08/1421Zxaetcjfbvbk15/08/4158Oggzltylyy73/08/2013Generalized abdominal painType 2 diabetes mellitus with hyperglycemia Resolved Problems ProblemNoted DateDiagnosed DateResolved DatePost-op pain Renal colic12/27/2448Dbyodxbwtysrom02/03/Renal calculi Ureteric colic1 Encounters DateTypeDepartmentCare LfeuTvudffzvaci91/21/2025bstract [address] [phone] Ryder Lemos APRN - [place] 08/09/2025 2:06 PM EST - 08/09/2025 11:59 PM ESTHospital Encounter [facility] Specialty Clinic ([facility]) [address] [place] [address] Discharge Disposition: Home or Self Care08/06/2025Orders Only [facility] [address] [place] [address] Ryder Lemos APRN - OUTSOLE PARAFFINER Pre-op testing (Primary Dx)08/02/2025 2:23 PM EST - 08/02/2025 11:59 PM EST Hospital Encounter [facility] Special[facility] Clinic ([facility]) [address] [place] [address] [phone] Discharge Disposition: Home or Self Care07/29/2025 2:29 PM EST - 07/31/2025 11:59 PM ESTHospital Encounter [address] [address] Eric Dominique MD Acute pain of right shoulder Discharge Disposition: Home or Self Care07/29/2025 2:27 PM EST - 07/31/2025 11:59 PM ESTHospital Encounter [address] [address] Eric Dominique MD Acute pain of left shoulder Discharge Disposition: Home or Self Care07/28/2025Refill [facility] [address] [place] [address] Ryder Lemos, HEALTH ADVOCATE - OUTSOLE PARAFFINER Medication Mwduaj7407/25/2025 1:55 PM EDT - 07/25/2025 11:59 PM EDTHospital Encounter [facility] Special[facility] Clinic ([facility]) [address] [place] [address] Discharge Disposition: Home or Self Care07/23/2025 7:42 AM EDTAnesthesia Event [address] [address] Brittney Mitchell, HEALTH ADVOCATE - RESEARCH MECHANIC Karrie Antonio APRN - RESEARCH MECHANIC 07/23/2025 7:30 AM EDT - 07/23/2025 8:35 [address] [address] Evan Everett MD EXTRACORPOREAL SHOCK WAVE EIEJZQONZYG15/28/2025 6:30 AM EDT - 07/23/2025 9:41 AM EDTHospital Encounter [address] [address] Evan Everett MD Discharge Disposition: Home or Self Care07/23/2025Orders Only [facility] UROLOGY Part of [address] [place] [phone] Evan Everett MD Renal calculus (Primary Dx)07/23/20258489Nsxlps68/23/2025 2:00 PM EDTAncillary Procedure [facility] Pod[facility] [address] [place] [address] [address] [place] [address] 07/18/2025 1:45 PM EDTOffice Visit [facility] Podiat[facility] [address] [facility] [address] [place] [phone] Meera Lopez DPM Charcot's joint of foot, left (Primary Dx); 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); Tobacco abuse; Type 2 diabetes mellitus with diabetic polyneuropathy, with long-term current use of insulin (HCC); Wcfxswptpqynz73/22/2025 2:22 PM EDT - 07/19/2025 11:59 PM EDTHospital Encounter [facility] CT Scan [address] [place] [address] Chronic nasal congestion; Chronic allergic rhinitis; Chronic sinus complaints Discharge Disposition: Home or Self Care07/17/2025 1:15 PM EDT - 07/17/2025 2:21 PM EDTHospital Encounter [facility] Special[facility] Clinic ([facility]) [address] [place], [place] [phone] Discharge Disposition: Home or Self Care07/15/2025Orders Only [facility] MRI [address] [place], [place] [phone] Eric Dominique MD 07/11/2025 1:53 PM EDT - 07/11/2025 11:59 PM EDTHospital Encounter [facility] Special[facility] ([facility]) [address] [place], [place] [phone] Discharge Disposition: Home or Self Care07/11/2025 1:00 PM EDTOffice Visit [facility] CARDIOLOGY Part of [address] [address] Deann Arteaga, HEALTH ADVOCATE - OUTSOLE PARAFFINER Preop cardiovascular exam (Primary Dx); History of syncope; History of chest pain; Mixed hyperlipidemia; LAYNE (obstructive sleep apnea)07/11/2025Transcribe Orders [facility] [address] [place] [address] Eric Dominique MD Acute pain of right shoulder (Primary Dx)07/09/2025Transcribe Orders [facility] [address] [place] [address] Karri Moreno PA-C Chronic nasal congestion (Primary Dx); Chronic allergic rhinitis; Chronic sinus qcmrwdetrm65/14/2025Transcribe Orders [facility] [address] [place] [address] Eric Dominique MD Acute pain of left shoulder (Primary Dx)07/08/2025Orders Only [facility] MRI [address] [place], [place] [phone] Eric Dominique MD 07/01/2025Telephone [facility] UROLOGY Part of [address] [place] [phone] Meghan León, HEALTH ADVOCATE - OUTSOLE PARAFFINER Surgery Scheduling (L eswl 07/23)07/01/2025Orders Only [facility] UROLOGY [address] [place] [phone] Evan Everett MD Kidney stone07/01/2025Results Follow-Up [facility] UROLOGY [address] [place] [phone] Ranulfo Shepherd PA-C 06/27/2025 10:09 PM EDT - 06/27/2025 11:59 PM EDTHospital Encounter [facility] LAB [address] [place], [place] [phone] Urgency of urination; Frequency of urination Discharge Disposition: Home or Self Care06/27/2025 4:40 PM EDT - 06/29/2025 11:59 PM EDTHospital Encounter [facility] Radiology [address] [place], [place] [phone] Renal calculus Discharge Disposition: Home or Self Care06/27/2025 3:45 PM EDTOffice Visit [facility] UROLOGY [address] [place] [address] Evan Everett MD Renal calculus (Primary Dx); Urgency of urination; Frequency of natuykggn17/25/2025Results Follow-Up [facility] CARDIOLOGY Part of [place] [phone] Nathan Ardon MD Epkehzu8206/19/2025 1:28 PM EDT - 06/19/2025 11:59 PM EDTHospital Encounter [facility] Specialty Clinic ([facility]) [address] [place] [address] Discharge Disposition: Home or Self Care06/17/2025Results Follow-Up [facility] [address] [place] [phone] Ryder Lemos APRN - OUTSOLE PARAFFINER 06/14/2025 4:35 PM EDT - 06/14/2025 11:59 PM EDTHospital Encounter [facility] LAB [address] [place] [address] Nathan Ardon MD BAILEE (acute kidney injury); Decreased renal function Discharge Disposition: Home or Self Care06/14/2025 4:30 PM EDT - 06/16/2025 11:59 PM EDTHospital Encounter [facility] CT Scan [address] [place], [place] [phone] Nathan Ardon MD Lightheaded; Dizziness; Elevated CK; History of syncope; Essential hypertension; Tobacco abuse; Mixed hyperlipidemia; SOB (shortness of breath) Discharge Disposition: Home or Self Care06/12/2025 2:40 PM EDTOffice Visit [facility] [address] [place] [phone] Ryder Lemos APRN - OUTSOLE PARAFFINER BAILEE (acute kidney injury) (Primary Dx); Hospital discharge follow-up06/12/2025 1:35 PM EDT - 06/12/2025 11:59 PM EDT Hospital Encounter [facility] Specialty Clinic ([facility]) [address] [place], [place] [phone] Discharge Disposition: Home or Self Care06/10/2025Refill [facility] CARDIOLOGY Part of [place] [phone] Génesis Stoner APRN - OUTSOLE PARAFFINER Medication Lrvkqa5306/04/2025 10:40 AM EDT - 06/04/2025 11:59 PM EDTHospital Encounter [facility] Special[facility] Clinic ([facility]) [address] [place] [address] Discharge Disposition: Home or Self Care06/04/2025 10:20 AM EDT - 06/04/2025 10:39 AM EDTHospital Encounter [place] [phone] Lightheaded; Dizziness; Elevated CK; History of syncope; Essential hypertension; Tobacco abuse; Mixed hyperlipidemia; SOB (shortness of breath) Discharge Disposition: Home or Self Care06/04/2025 9:00 AM EDTOffice Visit [facility] CARDIOLOGY Part [address] [phone] Nathan Ardon MD Lightheaded (Primary Dx); Dizziness; Elevated CK; History of syncope; Essential hypertension; Tobacco abuse; Mixed hyperlipidemia; SOB (shortness of breath)06/04/2025Results Follow-Up [facility] CARDIOLOGY Part of [address] [phone] Génesis Stoner APRN - OUTSOLE PARAFFINER Vbzjfko7306/03/2025Telephone [facility] [address] [place] [phone] Ryder Lemos APRN - OUTSOLE PARAFFINER ED Follow-up05/29/2025 10:44 PM EDT - 05/31/2025 1:15 PM EDTHospital Encounter [facility] MED SURG [address] [place] [address] [phone] Inder Jhaveri MD Iacob, Stefan, MD BAILEE (acute kidney injury) (Primary Dx); Lightheaded; Heart murmur Discharge Disposition: Home or Self Care05/29/2025 1:45 PM EDT - 05/29/2025 10:43 PM EDTHospital Encounter [facility] Special[facility] Clinic ([facility]) [address] [place] [address] [phone] Discharge Disposition: Home or Self Care05/29/2025 12:52 PM EDT - 05/29/2025 1:44 PM EDTHospital Encounter [facility] Physical Therapy [address] [place] [phone] Vineet Block, PT Discharge Disposition: Home or Self Care05/29/20254351Rkhvtn30/03/2025Telephone [facility] CARDIOLOGY Part of [address] [place] [address] Nathan Ardon MD 05/28/2025[facility] Part of [address] [place] [address] Nathan Ardon MD New Med Axqxpfj7405/28/2025[facility] [address] [place] [phone] Ryder Lemos HEALTH ADVOCATE - OUTSOLE PARAFFINER New Med Uuarmoi0505/28/2025Ref[facility] [address] [place] [phone] Ryder Lemos HEALTH ADVOCATE - OUTSOLE PARAFFINER New Med Vidneih9105/24/2025 1:42 PM EDT - 05/24/2025 11:59 PM EDTHospital Encounter [facility] Physical Therapy [address] [place], [place] [phone] Vineet Nam, PT Discharge Disposition: Home or Self Care05/24/2025Results Follow-Up [facility] Part [address] [phone] Génesis Stoner APRN - [place] Fzhiagr3605/23/2025 3:33 PM EDT - 05/23/2025 11:59 PM EDTHospital Encounter [place] [id number] History of syncope; Essential hypertension; Tobacco abuse; Mixed hyperlipidemia; SOB (shortness of breath); Bilateral leg edema Discharge Disposition: Home or Self Care05/23/2025 2:00 PM EDTOffice Visit [address] [phone] Génesis Stoner APRN - [place] Lightheaded (Primary Dx); Dizziness; History of syncope; Mixed hyperlipidemia; Essential hypertension; Tobacco abuse; SOB (shortness of breath); Bilateral leg edema05/23/2025 1:12 PM EDT - 05/23/2025 3:32 PM EDTHospital Encounter [facility] Specialty Clinic ([facility]) [address] [place], [place] [phone] Discharge Disposition: Home or Self Care05/20/2025 1:24 PM EDT - 05/20/2025 11:59 PM EDTHospital Encounter [facility] Physical Therapy [address] [place] [address] Hussein Ryan PTA Discharge Disposition: Home or Self Carefrom Last 3 Months Immunizations ImmunizationAdministration DatesNext DueInfluenza A (C1Z9-59) Vaccine PF IM 08/29/2009Influenza Virus Trllpoa1007/09/2015,07/04/2013Influenza, AFLURIA (age 3 y+), FLUZONE, (age 6 mo+), Quadv MDV, 0.5mL07/25/2020,07/25/2020Influenza, FLUARIX, FLULAVAL, FLUZONE (age 6 mo+) and AFLURIA, (age 3 y+), Quadv PF, 0.5mL 06/11/2019,08/24/2018Pneumococcal, PPSV23, PNEUMOVAX 23, (age 2y+), SC/IM, 0.5mL 05/10/2018Zoster Recombinant (Shingrix)03/25/2023 Family History Medical HistoryRelationNameCommentsOtherBrother 1 stomach issues lactose intoleranceOtherBrother 2 stomach issues Allergy (Severe)FatherAsthmaFatherCOPD FatherCancerFatherskinCataractsFatherDepressionFatherDiabetesFatherGlaucoma FatherHeart DiseaseFathervascular diseaseHigh Blood PressureFatherHigh CholesterolFatherOtherFatherchronic bronchitis/ gastric ulcers/gerdDepression MotherOtherMotherrestless legsRelationNameStatusCommentsBrother 1AliveBrother 2 AliveFatherDeceasedMotherAlive Social History Tobacco UseTypesPacks/DayYears UsedDateSmoking Tobacco: Every FpjNcpoyrtkpv501 Smokeless Tobacco: Never Tobacco Cessation:Ready to Q uit: Not Asked; Counseling Given: Not Answered Alcohol UseStandard Drinks/WeekCommentsNever0 (1 standard drink = 0.6 oz pure alcohol)AUDIT-CAnswerDate RecordedQ1: How often do you have a drink containing alcohol?Never06/11/2023Q2: How many drinks containing alcohol do you have on a typical day when you are drinking?Patient does not drink06/11/2023Frequency of Binge DrinkingNot on file06/11/2023Overall Financial Resource Strain (CARDIA) AnswerDate RecordedHow hard is it for you to pay for the very basics like food, housing, medical care, and heating?Patient wdsevuem83/22/2024HQ-2AnswerDate RecordedPHQ-9 Total Qners059PRAPARE - TransportationAnswerDate Recorded In the past 12 months, has lack of transportation kept you from medical appointments or from getting medications?No01/17/2025In the past 12 months, has lack of transportation kept you from meetings, work, or from getting things needed for daily living?No01/17/2025Housing Stability Vital SignAnswerDate RecordedUnable to Pay for Housing in the Last YearNot on file09/28/2023Number of Places Lived in the Last YearNot on file09/28/2023In the last 12 months, was there a time when you did not have a steady place to sleep or slept in [facility] (including now)?Patient dojsrqzi53/03/2024Housing Stability Vital SignAnswerDate RecordedIn the last 12 months, was there a time when you were not able to pay the mortgage or rent on time?No05/30/2025In the past 12 months, how many times have you moved where you were living?t any time in the past 12 months, were you homeless or living in a intermediate (including now)?No05/30/2025 AUDIT-CAnswerDate RecordedQ1: How often do you have a drink containing alcohol? Never05/30/2025Q2: How many drinks containing alcohol do you have on a typical day when you are drinking?Patient does not drink05/30/2025Q3: How often do you have six or more drinks on one occasion?Never05/30/2025Hunger Vital SignAnswer Date RecordedWithin the past 12 months, you worried that your food would run out before you got the money to buymore.Never true05/30/2025Within the past 12 months, the food you bought just didn't last and you didn't have money to get more.Never true05/30/2025PRAPARE - TransportationAnswerDate RecordedIn the past 12 months, has lack of transportation kept you from medical appointments or from getting medications?No05/30/2025In the past 12 months, has lack of transportation kept you from meetings, work, or from getting things needed for daily living?No05/30/2025HC UtilitiesAnswerDate RecordedIn the past 12 months has the [employer], gas, oil, or water company threatened to shut off services in your home?No05/30/2025Interpersonal Safety Domain Source: IP Abuse Screening AnswerDate RecordedPhysical hiazwPcbmyr59/28/2025Verbal hvnmeLmmnke56/28/2025 Emotional ndkfkHxbkxa18/28/2025Financial xsmkqUipfjm52/28/2025Sexual abuseDenies 07/23/2025CommentsNoSex and Gender InformationValueDate RecordedSex Assigned at SvbriRnorul78/08/2025 10:17 AM EDTLegal XowCrfamn71/10/2013 1:17 PM ESTGender AqyhwavgKpbkfo09/08/2025 10:17 AM EDTSexual OrientationNot on file Last Filed Vital Signs Vital SignReadingTime TakenCommentsBlood Zeshwoac900/51110/09/2024 2:25 PM EST Ttxee216208/09/2025 2:25 PM DOGExfcyeyetna22.3 ??C (97.3 ??F)08/09/2025 2:25 PM ESTRespiratory Goaa546510/09/2024 2:25 PM ESTOxygen Huyevcpgfw35%07/23/2025 9:30 AM EDTInhaled Oxygen Concentration--Ivppur342.2 kg (227 lb 9.6 oz)07/23/2025 6:33 AM ZFFLwlpst642.6 cm (5' 6 )07/23/2025 6:33 AM EDTBody Mass Index36.74 07/23/2025 6:33 AM EDT Plan of Treatment DateTypeDepartmentCare Team (Latest Contact Info)Axnzffhsfrq68/25/2025 2:00 PM ESTAppointment [facility] Special[facility] ([facility]) [address] [place] [phone] Dixon.09/09/2025 3:40 PM ESTOffice Visit [facility] [place] [address] [place] [address] Ryder Lemos, HEALTH ADVOCATE - OUTSOLE PARAFFINER [address] [place], [place] [phone] Pre-Op Clearance 10/04/[address] [facility] (Form on file)Labs/EKG/CXR to be completed 1 wk prior10/08/2025 1:20 PM ESTOffice Visit [facility] CARDIOLOGY Part of [address] [phone] Nahtan Ardon MD [address] [place] [address] [place] [address] 3 month follow up10/10/2025 4:00 PM ESTAppointment [facility] Mammography [address] [place] [address] [phone] epic/pt10/24/2025 1:00 PM ESTOffice Visit [facility] UROLOGY Part of [address] [place] [address] Preethi Tidwell, HEALTH ADVOCATE - OUTSOLE PARAFFINER [address] [place] [address] [address] [place] [address] [facility] MaintenanceDue DateLast DoneCommentsFIT/FOBT: Average risk 2018Fecal-DNA (Cologuard): Average risk2018Sigmoidoscopy/CT srtarnnhhimu98/05/2018Diabetic retinal exam/, 01/02/2018, 01/02/2018Lung Cancer Screening &/or Vwvxdzetpj18/05/2023reast cancer screen /, 03/12/2016Flu vaccine (#1)51, 07/25/2020, 06/11/2019, Additional history existsDiabetic foot exam07/13/2025 07/13/2024, 03/28/2024, 03/18/2021, Additional history existsDTaP/Tdap/Td vaccine (1 - Tdap)11/28/2025Postponed from 02/29/1992 (Patient Refused) Pneumococcal 50+ years Vaccine (2 of 2 - PCV)Postponed from 05/10/2019 (Patient Refused)Rfwcuaylejg51, 12/08/2022 Colorectal Cancer Rhmrvf786A1C test (Diabetic or Prediabetic)04/25/2026 04/25/2025, 01/25/2025, 10/11/2024, Additional history existsDiabetic Alb to Cr ratio (uACR) test/, 08/03/2023, 09/21/2022, Additional history existsPostponed from 03/23/2025 (Not Indicated)Edlrme0005/23/2026 05/23/2025, 05/23/2025, 03/23/2024, Additional history existsCOVID-19 Vaccine ( - season)2026Postponed from 05/27/2025 (Patient Refused)Depression Otbykgnqxx38/17/202609/, 06/12/2025HIV akibbz5006/12/2026Postponed from 02/29/1988 (Patient Refused)Hepatitis B vaccine (1 of 3 - 19+ 3-dose series) 06/12/2026Postponed from 02/29/1992 (Patient Refused)Shingles vaccine (2 of 2) /3Postponed from 05/20/2023 (Unavailable)GFR test (Diabetes, CKD 3-4, OR last GFR 15-59), 06/04/2025, 05/31/2025, Additional history existsCervical cancer screenDiscontinuedPap smearDiscontinued 06/02/2017, 03/08/2016, 12/25/2012Pneumococcal 0-49 years VaccineDiscontinued 05/10/2018Hepatitis C tbxsclQcecsspdp17/16/2021HPV (without or with Pap) DiscontinuedHepatitis A vaccineAged OutNo longer eligible based on patient's age to complete this topicHib vaccineAged OutNo longer eligible based on patient's age to complete this topicMeningococcal (ACWY) vaccineAged OutNo longer eligible based on patient's age to complete this topicMeningococcal B vaccineAged OutNo longer eligible based on patient's age to complete this topicPolio vaccineAged OutNo longer eligible based on patient's age to complete this topic Medical Devices ImplantedTypeAreaManufacturerDevice IdentifierShelf Expiration DateModel / Serial / LotGraft Bone Sub 5cc Pure Allosync - [id number] Implanted:Qty: 1 on 09/14/2024 by Sreekanth Weber DPM at [facility]/Graft/Tissue/Human/SynthLeft: FootARTHREX INC-[id number] / / [id number]:[id number] Bone Sub 2.5cc Allosync Pure - [id number] Implanted:Qty: 1 on 09/14/2024 [facility]issue/Human/SynthLeft: Foot[employer] INC-[id number] / / [id number]:[id number] Orth S Stl Hi Compr G-Beam Fus Beaming Sys - [id number] Implanted:Qty: 1 on 09/14/2024 [facility]/Foot/ToeLeft: FootORTHOFIX INC-[id number] / / [id number] Bne Fusion Sm 5.4x120 Mm Ss Strl G-Beam - [id number] Implanted:Qty: 1 on 09/14/2024 [facility]/Plate/Nail/RodLeft: Foot[employer] INC-[id number] / / [id number] Bne Fusion Lg 7.4x70 Mm Ss Strl G-Beam - [id number] Implanted:Qty: 1 on 09/14/2024 by Urbano Merino [facility]/Plate/Nail/RodLeft: [employer] INC-[id number] / / [id number] Bne Fusion Sm 5.4x80 Mm Ss Strl G-Beam - [id number] Implanted:Qty: 1 on 09/14/2024 by Urbano Mer[facility] at [facility]/Plate/Nail/RodLeft: FootOR[employer] INC-[id number] / / [id number]: StimulatorSpine:StimulatorPin Fix Fidelia Pt 2 End 564x9 In Smooth Ss Strl Steinmann - [id number] Implanted:Qty: 2 on 07/23/2024 [facility]: FootMICROAIRE SURGICAL INSTRUMENTS INC-[id number] / / K Wire Fix L6in Dia1.6mm St S Stl 3 Side Dbl Trcr Both End - [id number] Implanted:Qty: 1 on 07/23/2024 by [facility]: [facility]-[id number]/14/2029 [id number] / / [id number] Wire Fix L6in Dia1.6mm St S Stl 3 Side Dbl Trcr Both End - [id number] Implanted:Qty: 1 on 07/23/2024 [facility]: [facility]-[id number] / / [id number] Fix Fidelia Pt 1 End 332x9 In Thrd Ss Ns Steinmann - [id number] Implanted:Qty: 2 on 07/23/2024 by [facility]: FootMICROAIRE [employer]-[id number] / / Screw Bne Fusion Sm 5.4x120 Mm Ss Strl G-Beam - [id number] Implanted:Qty: 1 on 09/14/2024 by [facility]: [employer]OR[employer] INC-[id number] / / [id number] Procedures Procedure NamePriorityDate/TimeAssociated DiagnosisCommentsMRI SHOULDER LEFT WO TZIXSWENFhfxnxp62/03/2025 2:51 PM EST Acute pain of left shoulder MRI SHOULDER RIGHT WO FMLXHFLRKxevsof27/03/2025 2:42 PM EST Acute pain of right shoulder GLUCOSE, WHOLE ZDNNGIfneyzc78/28/2025 8:42 AM EDT DE LITHOTRIPSY XTRCORP SHOCK WAVE07/23/2025 7:42 AM EDT Kidney stone Case Notes Confirmed with Gregg from [facility] about new time same confirmation 07/02 BD Special Needs on asa/ will obtain clearance from [facility] called spoke with Whitney confirmation #[id number] GLUCOSE, WHOLE XSMIFPnhgnxp70/28/2025 7:10 AM EDT XR FOOT LEFT (MIN 3 VIEWS)Kraexvm2307/18/2025 2:04 PM EDT Charcot's joint of foot, left 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) DEBRIDEMENT OF NAILS, 6 OR ODRIOygccdd95/23/2025 1:44 PM EDT Type 2 diabetes mellitus with diabetic polyneuropathy, with long-term current use of insulin (HCC) Onychomycosis CT SINUS WO EDBKBYCZRblstau25/22/2025 2:45 PM EDT Chronic nasal congestion Chronic allergic rhinitis Chronic sinus complaints EKG 12-AALASvlnktp11/16/2025 Preop cardiovascular exam History of syncope History of chest pain Mixed hyperlipidemia URINALYSIS WITH XIPZCVVLVCRZudtlwv23/02/2025 10:21 PM EDT Urgency of urination Frequency of urination CULTURE, XFXRCUmhtjvm48/02/2025 10:21 PM EDT Urgency of urination Frequency of urination XR ABDOMEN (KUB) (SINGLE AP VIEW)Foqgkde0906/27/2025 5:04 PM EDT Renal calculus CHLOE,POST-VOID RES,US,NON-FRSZUFBXatsjnw16/02/2025 4:18 PM EDT Renal calculus Urgency of urination Frequency of urination CTA ABDOMEN W WO ZRYLVWZFQkvlcie43/19/2025 5:45 PM EDT Lightheaded Dizziness Elevated CK History of syncope Essential hypertension Tobacco abuse Mixed hyperlipidemia SOB (shortness of breath) BASIC METABOLIC EUNGRQgihqlr55/19/2025 4:38 PM EDT BAILEE (acute kidney injury) BRAIN NATRIURETIC ATZDITXWtsnlaw77/09/2025 10:22 AM EDT Lightheaded Dizziness Elevated CK History of syncope Essential hypertension Tobacco abuse Mixed hyperlipidemia SOB (shortness of breath) BASIC METABOLIC BLBNZIjogetj25/09/2025 10:22 AM EDT Lightheaded Dizziness Elevated CK History of syncope Essential hypertension Tobacco abuse Mixed hyperlipidemia SOB (shortness of breath) SPDKeyrkxb59/09/2025 10:22 AM EDT Lightheaded Dizziness Elevated CK History of syncope Essential hypertension Tobacco abuse Mixed hyperlipidemia SOB (shortness of breath) GLUCOSE, WHOLE BILILCbxffrp03/05/2025 11:01 AM EDT US RENAL XQPHWDRYXjvnjbj67/05/2025 7:37 AM EDT GLUCOSE, WHOLE CXOSVHjxgxjp44/05/2025 7:13 AM EDT EKG RHYTHM YNUZBQbuxyxb52/05/2025 6:00 AM EDT IXAqgjrwh24/05/2025 5:50 AM EDT CBC WITH AUTO ZWAMBMQKUVNFYntcviy25/05/2025 5:50 AM EDT BASIC METABOLIC PANEL W/ REFLEX TO MG FOR LOW EGsfmear13/05/2025 5:50 AM EDT GLUCOSE, WHOLE VDNFKOjdcvtw18/04/2025 8:38 PM EDT GLUCOSE, WHOLE DLDAMWdrwwsr49/04/2025 4:07 PM EDT EKG RHYTHM VVWTZHhxvfwg05/04/2025 3:00 PM EDT GLUCOSE, WHOLE ZFBLBZgifjox17/04/2025 11:08 AM EDT EKG RHYTHM KYWPKGlqrjjo38/04/2025 10:50 AM EDT ECHO (TTE) YEULPVYVGoelzvl08/04/2025 9:34 AM EDT Heart murmur GLUCOSE, WHOLE YAAIDWrswtby38/04/2025 7:03 AM EDT CBC WITH AUTO YAUYGQEIVMJMDnfgnxr61/04/2025 5:47 AM EDT BASIC METABOLIC PANEL W/ REFLEX TO MG FOR LOW LYuystfj24/04/2025 5:47 AM EDT KOTDVDIEPodiv06/04/2025 3:13 AM EDT FFCFBFPRIDVY28/04/2025 12:37 AM EDT YGWOMOSGJKANE59/04/2025 12:37 AM EDT COMPREHENSIVE METABOLIC CACRPMERJ70/04/2025 12:37 AM EDT XR CHEST (2 VW)STAT05/29/2025 11:32 PM EDT RBUSZJP7805/29/2025 11:17 PM EDT CBC WITH AUTO IZMESQYIWJIQYQAU31/03/2025 11:17 PM EDT EKG 12-DKSFFRNM93/03/2025 11:12 PM EDT RAPID INFLUENZA A/B WRWXQCKGJQSQ21/03/2025 11:08 PM EDT COVID-19, OEFKQXHTA86/03/2025 11:08 PM EDT LDL CHOLESTEROL, UPQNGZWkkldvi58/28/2025 3:44 PM EDT LIPID CGFFQZmcelpe62/28/2025 3:44 PM EDT Mixed hyperlipidemia UBEJwdyxhj24/28/2025 3:43 PM EDT History of syncope Essential hypertension Tobacco abuse Mixed hyperlipidemia SOB (shortness of breath) Bilateral leg edema COMPREHENSIVE METABOLIC FKFVLTovyshx50/28/2025 3:43 PM EDT History of syncope Essential hypertension Tobacco abuse Mixed hyperlipidemia SOB (shortness of breath) Bilateral leg edema EKG 12-XRLQBdyurns50/28/2025 History of syncope SOB (shortness of breath) HEMOGLOBIN Q5HFbzwvrr15/31/2025 3:48 PM EDT MICROALBUMIN, FRAfgssig93/28/2024 3:57 PM EDT Controlled type 2 diabetes mellitus with diabetic polyneuropathy, with long-term current use of insulin (HCC) COLONOSCOPY ILGQOAJQLLcfyttr79/15/2023 12:09 PM EDT ALEJANDRO MARISOL DIGITAL SCREEN NXMBQYEGMRhmssjq37/20/2021 12:38 PM EDT Other screening mammogram HEPATITIS C TLALOBPXMwobwjo07/16/2021 12:57 PM EDT Abnormal LFTs HM DIABETES EYE FVWMIvxdois18/22/2020 ECONOMETRICS PROFESSOR DWWWHWNKKlfokwo71/07/2017 12:29 PM EDT from Last 3 Months or Most Recently Relevant to Health Maintenance Results * MRI SHOULDER LEFT WO CONTRAST (07/29/2025 2:51 PM EST)Anatomical Region LateralityModalityShoulder, Chest, ArmMagnetic ResonanceSpecimen (Source) Anatomical Location / LateralityCollection Method / VolumeCollection Time Received Time08/05/2025 6:54 AM EST Impressions 08/05/2025 6:59 AM EST 1. Irregular full-thickness tearing of mid anterior-mid [...] degenerative change of the left AC joint. Narrative 08/05/2025 6:59 AM EST EXAMINATION: MRI OF THE LEFT SHOULDER WITHOUT CONTRAST ?? 07/29/2025 2:41 pm TECHNIQUE: Multiplanar multisequence MRI [...] anterior-mid infraspinatus between musculotendinous junction and footplate. ??Moderate underlying supraspinatus and infraspinatus tendinosis. Low-grade partial-thickness [...] glenohumeral joint. Mild to moderate glenohumeral chondromalacia. ??Inferior glenohumeral appears intact. ??No sizable glenohumeral joint effusion. AC JOINT AND ACROMIOCLAVICULAR ARCH: Mild degenerative change of the left AC joint. ??Type 2 acromion. BONE MARROW: Red marrow reconversion. ??No acute fracture or dislocation. OUTLET SPACES: Suprascapular notch and quadrilateral space grossly unremarkable in appearance No left axillary lymphadenopathy. Procedure Note Santiago Ngo MD - 08/05/2025 EXAMINATION: MRI OF THE LEFT SHOULDER WITHOUT CONTRAST 07/29/2025 2:41 pm TECHNIQUE: Multiplanar multisequence MRI of the left shoulder was performed withoutthe administration of intravenous contrast. COMPARISON: Left shoulder radiographs from 07/21/2023 HISTORY: ORDERING SYSTEM PROVIDED HISTORY: Acute pain of left shoulder 50-year-old female with acute left shoulder pain FINDINGS: ROTATOR CUFF: Subacromial subdeltoid bursa contiguous with theglenohumeral joint. Irregular full-thickness tearing of mid anterior-mid supraspinatus alongthe footplate with mild retraction of the torn fibers measuring up to 6 mmon image 4, series 4. Multifocal less than and up to 50% partial-thickness interstitial and articular-surface tearing of posterior supraspinatus and anterior-mid infraspinatus between musculotendinous junction and footplate. Moderate underlying supraspinatus and infraspinatus tendinosis. Low-grade partial-thickness articular-surface and interstitial tearing ofthe insertional fibers of subscapularis Teres minor muscle/tendon appears intact No significant atrophy or fatty degeneration of the visualized rotatorcuff musculature. BICEPS TENDON: Intact vertical and horizontal portions of the long headof the biceps tendon. LABRUM: Mild diffuse labral degeneration. GLENOHUMERAL JOINT: Mild spurring at the margins of the glenohumeraljoint. Mild to moderate glenohumeral chondromalacia. Inferior glenohumeralappears intact. No sizable glenohumeral joint effusion. AC JOINT AND ACROMIOCLAVICULAR ARCH: Mild degenerative change of the leftAC joint. Type 2 acromion. BONE MARROW: Red marrow reconversion. No acute fracture or dislocation. OUTLET SPACES: Suprascapular notch and quadrilateral space grossly unremarkable in appearance No left axillary lymphadenopathy. IMPRESSION: 1. Irregular full-thickness tearing of mid anterior-mid supraspinatusalong the footplate with mild retraction of the torn fibers measuring up to 6mm. 2. Multifocal less than and up to 50% partial-thickness interstitial and articular surface tearing of posterior supraspinatus and anterior-mid infraspinatus between musculotendinous junction and footplate. Moderate underlying supraspinatus and infraspinatus tendinosis. 3. Low-grade partial-thickness articular-surface and interstitial tearingof the insertional fibers of subscapularis. 4. Mild diffuse labral degeneration. 5. Mild glenohumeral osteoarthrosis. Mild to moderate glenohumeral chondromalacia. 6. Mild degenerative change of the left AC joint. Authorizing ProviderResult TypeResult StatusSteven Lindsay Dominique [facility] MRI ORDERABLESFinal Result * MRI SHOULDER RIGHT WO CONTRAST (07/29/2025 2:42 PM EST)Anatomical Region LateralityModalityShoulder, Chest, ArmMagnetic ResonanceSpecimen (Source) Anatomical Location / LateralityCollection Method / VolumeCollection Time Received Time08/05/2025 6:59 AM EST Impressions 08/05/2025 7:03 AM EST 1. Less than and up to 50% partial-thickness articular-surface and interstitial tearing of posterior supraspinatus in the region of the critical zone. Moderate underlying supraspinatus tendinosis. 2. Low-grade partial-thickness tearing of posterior infraspinatus along the footplate. Xiby-fg-mfswewfi underlying infraspinatus tendinosis. 3. Less than and up to 50% partial-thickness articular-surface and interstitial tearing of the insertional fibers of subscapularis. 4. Mild diffuse labral degeneration. 5. Mild glenohumeral osteoarthrosis. Mild glenohumeral chondromalacia. 6. Evidence of prior distal clavicular resection. 7. Red marrow reconversion. Narrative 08/05/2025 7:03 AM EST EXAMINATION: MRI OF THE RIGHT SHOULDER WITHOUT CONTRAST ?? 07/29/2025 2:42 pm TECHNIQUE: Multiplanar multisequence MRI [...] critical zone on image 11, series 4. ??Moderate underlying supraspinatus tendinosis. Low-grade partial-thickness tearing of posterior infraspinatus along the footplate on image 8, series 4. ??Jcys-hh-ysulxxct underlying infraspinatus tendinosis. Less than and up to 50% partial-thickness articular-surface and interstitial tearing of the insertional fibers of subscapularis. Teres minor muscle/tendon appears intact. No significant atrophy or fatty degeneration of visualized rotator cuff musculature. BICEPS TENDON: Intact vertical and horizontal portions of the long head of the biceps tendon. LABRUM: Mild diffuse labral degeneration. GLENOHUMERAL JOINT: Mild glenohumeral chondromalacia. ??Mild osteophyte spurring at the margins of the glenohumeral joint. ??Inferior glenohumeral appears intact. ??No sizable glenohumeral joint effusion. AC JOINT AND ACROMIOCLAVICULAR ARCH: Foreshortening of the distal clavicle with associated susceptibility artifact consistent with prior distal clavicular resection. ??Type 2 acromion. ??Postoperative widening of the AC joint. BONE MARROW: Red marrow reconversion. ??Subcortical cystic change at the anterior humeral head. ??No acute displaced fracture or dislocation. OUTLET SPACES: Suprascapular notch and quadrilateral space grossly unremarkable in appearance No right axillary lymphadenopathy. Procedure Note Santiago Ngo MD - 08/05/2025 EXAMINATION: MRI OF THE RIGHT SHOULDER WITHOUT CONTRAST 07/29/2025 2:42 pm TECHNIQUE: Multiplanar multisequence MRI of the right shoulder was performed withoutthe administration of intravenous contrast. COMPARISON: None. HISTORY: ORDERING SYSTEM PROVIDED HISTORY: Acute pain of right shoulder 50-year-old female with acute right shoulder pain FINDINGS: ROTATOR CUFF: Small amount of fluid in the subacromial subdeltoid bursa. Less than and up to 50% partial-thickness articular-surface andinterstitial tearing of posterior supraspinatus in the region of the critical zone on image 11, series 4. Moderate underlying supraspinatus tendinosis. Low-grade partial-thickness tearing of posterior infraspinatus along the footplate on image 8, series 4. Zmmf-wg-umclhkjf underlyinginfraspinatus tendinosis. Less than and up to 50% partial-thickness articular-surface andinterstitial tearing of the insertional fibers of subscapularis. Teres minor muscle/tendon appears intact. No significant atrophy or fatty degeneration of visualized rotator cuff musculature. BICEPS TENDON: Intact vertical and horizontal portions of the long headof the biceps tendon. LABRUM: Mild diffuse labral degeneration. GLENOHUMERAL JOINT: Mild glenohumeral chondromalacia. Mild osteophyte spurring at the margins of the glenohumeral joint. Inferiorglenohumeral appears intact. No sizable glenohumeral joint effusion. AC JOINT AND ACROMIOCLAVICULAR ARCH: Foreshortening of the distalclavicle with associated susceptibility artifact consistent with prior distal clavicular resection. Type 2 acromion. Postoperative widening of theAC joint. BONE MARROW: Red marrow reconversion. Subcortical cystic change at the anterior humeral head. No acute displaced fracture or dislocation. OUTLET SPACES: Suprascapular notch and quadrilateral space grossly unremarkable in appearance No right axillary lymphadenopathy. IMPRESSION: 1. Less than and up to 50% partial-thickness articular-surface and interstitial tearing of posterior supraspinatus in the region of thecritical zone. Moderate underlying supraspinatus tendinosis. 2. Low-grade partial-thickness tearing of posterior infraspinatus alongthe footplate. Hlrw-ez-qxjdffjl underlying infraspinatus tendinosis. 3. Less than and up to 50% partial-thickness articular-surface and interstitial tearing of the insertional fibers of subscapularis. 4. Mild diffuse labral degeneration. 5. Mild glenohumeral osteoarthrosis. Mild glenohumeral chondromalacia. 6. Evidence of prior distal clavicular resection. 7. Red marrow reconversion. Authorizing ProviderResult TypeResult StatusEric Dominique MDIMG MRI ORDERABLESFinal Result * (ABNORMAL) Glucose, Whole Blood (07/23/2025 8:42 AM EDT) Only the most recent of8 resultswithin the time period is included. ComponentValueRef RangeTest MethodAnalysis TimePerformed AtPathologist Signature POC Lrrnlrv461(H)74 - 100 mg/dL07/23/2025 8:42 AM [facility] LABSpecimen (Source)Anatomical Location / LateralityCollection Method / VolumeCollection TimeReceived Time07/23/2025 8:42 AM EDT1 9:15 AM EDT Narrative Authorizing ProviderResult TypeResult StatusThanalia Everett MDCHEMISTRY ORDERABLESFinal ResultPerforming OrganizationAddressCity/State/ZIP CodePhone Number [facility] [address] [place] [address] * XR FOOT LEFT (MIN 3 VIEWS) (07/18/2025 2:04 PM EDT)Specimen (Source)Anatomical Location / LateralityCollection Method / VolumeCollection TimeReceived Time Narrative [facility] - 07/18/2025 2:04 PM EDT Radiology exam is complete. No Radiologist dictation. Please follow up with ordering provider. Authorizing ProviderResult TypeResult StatusMeera Lopez DPMIMG DIAGNOSTIC IMAGING ORDERABLESFinal ResultPerforming OrganizationAddressCity/State/ZIP Code Phone Number [facility] * CT SINUS WO CONTRAST (07/17/2025 2:45 PM EDT)Anatomical RegionLaterality ModalityHeadComputed TomographySpecimen (Source)Anatomical Location / LateralityCollection Method / VolumeCollection TimeReceived Time07/21/2025 2:12 PM EDT Impressions 07/21/2025 2:21 PM EDT Sphenoid sinusitis. Narrative 07/21/2025 2:21 PM EDT EXAMINATION: CT OF THE SINUS WITHOUT CONTRAST ??07/17/2025 2:45 pm TECHNIQUE: CT of the sinuses [...] HISTORY: Is the patient ?->No FINDINGS: SINUSES/MASTOIDS: ??The maxillary,ethmoid and frontal sinuses are clear. Right frontal sinus remains poorly pneumatized. ??Partial opacification of the sphenoid sinus with an air-fluid level suggesting acute sinusitis. ??Mild nasal mucosal hypertrophy. ??The bilateral ostiomeatal units are essentially patent. ??Slight leftward deviation nasal septum. ??Ethmoid roofs are symmetric. ??The visualized mastoid air cells are well aerated. SOFT TISSUES: ??Visualized soft tissues demonstrate no acute abnormality. Similar punctate retinal calcification by the left optic nerve which may represent optic disc drusen. ??The visualized portion of the intracranial contents demonstrate no gross acute abnormality. Procedure Note Efra Sullivan MD - 07/21/2025 EXAMINATION: CT OF THE SINUS WITHOUT CONTRAST 07/17/2025 2:45 pm TECHNIQUE: CT of the sinuses was performed without the administration ofintravenous contrast. Multiplanar reformatted images are provided for review.Automated exposure control, iterative reconstruction, and/or weight based adjustmentof the mA/kV was utilized to reduce the radiation dose to as low asreasonably achievable. COMPARISON: 07/02/2024 HISTORY: ORDERING SYSTEM PROVIDED HISTORY: Chronic nasal congestion TECHNOLOGIST PROVIDED HISTORY: Is the patient ?->No FINDINGS: SINUSES/MASTOIDS: The maxillary,ethmoid and frontal sinuses are clear. Right frontal sinus remains poorly pneumatized. Partial opacification ofthe sphenoid sinus with an air-fluid level suggesting acute sinusitis. Mild nasal mucosal hypertrophy. The bilateral ostiomeatal units areessentially patent. Slight leftward deviation nasal septum. Ethmoid roofs are symmetric. The visualized mastoid air cells are well aerated. SOFT TISSUES: Visualized soft tissues demonstrate no acute abnormality. Similar punctate retinal calcification by the left optic nerve which may represent optic disc drusen. The visualized portion of the intracranial contents demonstrate no gross acute abnormality. IMPRESSION: Sphenoid sinusitis. Authorizing ProviderResult TypeResult StatusKarri Moreno PA-CIMG CT ORDERABLESFinal Result * EKG 12 lead (07/11/2025) Only the most recent of3 resultswithin the time period is included. Narrative Authorizing ProviderResult TypeResult StatusDeann Arteaga [facility] CNPECG ORDERABLESFinal Result * (ABNORMAL) Urinalysis with Microscopic (06/27/2025 10:21 PM EDT)ComponentValue Ref RangeTest MethodAnalysis TimePerformed AtPathologist SignatureColor, UA XyehsqFfhgot82/02/2025 10:21 PM [facility] LABTurbidity CBGudenUrksi17/02/2025 10:21 PM [facility] LABGlucose, Ur 3+(A)NEGATIVE mg/dL06/27/2025 10:21 PM [facility] Bilirubin, LlgzhQFVOGWUQZPRUVSPT67/02/2025 10:21 PM [facility] LABKetones, UrineNEGATIVENEGATIVE mg/dL06/27/2025 10:21 PM [facility] LABSpecific [place], UA1.0101.010 - 1.7421906/27/2025 10:21 PM [facility] LABUrine HgbNEGATIVENEGATIVE 06/27/2025 10:21 PM [facility] LABpH, Urine6.05.0 - 9.0 06/27/2025 10:21 PM [facility] LABProtein, UANEGATIVE NEGATIVE mg/dL06/27/2025 10:21 PM [facility] Urobilinogen, UrineNormal0.0 - 1.0 EU/dL06/27/2025 10:21 PM [facility] LABNitrite, MttcpUXRSGHHOEAFRSRLA93/02/2025 10:21 PM [facility] LABLeukocyte Esterase, IxdjtQHRDEAMPMIIOBIBU22/02/2025 10:21 PM [facility] LABWBC, UA0 TO 20 - 5 /HPF06/27/2025 10:21 PM [facility] LABRBC, UA0 TO 20 - 2 /HPF06/27/2025 10:21 PM [facility] LABEpithelial Cells, UA2 TO 50 - 25 /HPF06/27/2025 10:21 PM [facility] LABBacteria, UA1+(A) None06/27/2025 10:21 PM [facility] LABSpecimen (Source) Anatomical Location / LateralityCollection Method / VolumeCollection Time Received TimeUrineURINE SPECIMEN / Mwdoanz7206/27/2025 10:21 PM EDT1 10:21 PM EDT Narrative Authorizing ProviderResult TypeResult StatusPreethi Tidwell APRN - CNPURINE ORDERABLESFinal ResultPerforming OrganizationAddressCity/State/ZIP CodePhone Number [facility] [address] [place] [address] * Culture, Urine (06/27/2025 10:21 PM EDT)ComponentValueRef RangeTest Method Analysis TimePerformed AtPathologist SignatureSpecimen Description.CLEAN CATCH URINE06/27/2025 10:21 PM [facility] LABSpecial Requests Site: Urine06/27/2025 10:21 PM [facility] LABCultureNO SIGNIFICANT RZDSRK9906/27/2025 10:21 PM [facility] LABORATORIESSpecimen (Source) Anatomical Location / LateralityCollection Method / VolumeCollection Time Received TimeUrineURINE SPECIMEN / Ylzlsvi3906/27/2025 10:21 PM EDT1 10:21 PM EDT Narrative Authorizing ProviderResult TypeResult StatusPreethi Tidwell [facility] MICROBIOLOGY - GENERAL ORDERABLESFinal ResultPerforming OrganizationAddress City/State/ZIP CodePhone Number [facility] [address] [place] [address], [facility] [phone] [facility] [employer] [address] [place], [place] [id number], [facility] [phone] * XR ABDOMEN (KUB) (SINGLE AP VIEW) (06/27/2025 5:04 PM EDT)Anatomical Region LateralityModalityAbdomenComputed RadiographySpecimen (Source)Anatomical Location / LateralityCollection Method / VolumeCollection TimeReceived Time 07/04/2025 12:15 PM EDT Impressions 07/04/2025 12:15 PM EDT Left nephrolithiasis. Narrative 07/04/2025 12:15 PM EDT EXAMINATION: ONE SUPINE XRAY VIEW(S) OF THE ABDOMEN 06/27/2025 5:04 pm COMPARISON: None. HISTORY: ORDERING SYSTEM PROVIDED HISTORY: Renal calculus TECHNOLOGIST PROVIDED HISTORY: stones FINDINGS: Bowel gas pattern nonobstructed. ??Renal shadows partially obscured by bowel gas and fecal debris. ??2-3 mm left nephrolithiasis. ??No definite right renal or ureteral stones. ??No acute osseous abnormality. Procedure Note Ruddy Mallory, DO - 07/04/2025 EXAMINATION: ONE SUPINE XRAY VIEW(S) OF THE ABDOMEN 06/27/2025 5:04 pm COMPARISON: None. HISTORY: ORDERING SYSTEM PROVIDED HISTORY: Renal calculus TECHNOLOGIST PROVIDED HISTORY: stones FINDINGS: Bowel gas pattern nonobstructed. Renal shadows partially obscured bybowel gas and fecal debris. 2-3 mm left nephrolithiasis. No definite rightrenal or ureteral stones. No acute osseous abnormality. IMPRESSION: Left nephrolithiasis. Authorizing ProviderResult TypeResult StatusJuliamy Tidwell APRN - CNPIMG DIAGNOSTIC IMAGING ORDERABLESFinal Result * CTA ABDOMEN W WO CONTRAST (06/14/2025 5:45 PM EDT)Anatomical RegionLaterality ModalityAbdomen, VascularComputed TomographySpecimen (Source)Anatomical Location / LateralityCollection Method / VolumeCollection TimeReceived Time 06/18/2025 4:16 PM EDT Impressions 06/18/2025 4:33 PM EDT 1. Left nephrolithiasis with a 5 mm stone in the lower pole calyx. No obstructive uropathy. 2. Punctate 1 mm stone in the lower pole calyx and a similar stone in the upper pole calyx of the right kidney. 3. Accessory renal artery on the right perfusing the inferior pole of the right kidney. No evidenceof renal artery stenosis on either side . Narrative 06/18/2025 4:33 PM EDT EXAM: CTA ABDOMEN AND PELVIS WITH AND WITHOUT [...] the bones. No acute soft tissue abnormality. Procedure Note Arlin Freed MD - 06/18/2025 EXAM: CTA ABDOMEN AND PELVIS WITH AND WITHOUT CONTRAST 06/14/2025 05:45:59 PM TECHNIQUE: CTA images of the abdomen and pelvis without and with intravenouscontrast. Three-dimensional MIP/volume rendered formations were performed.Automated exposure control, iterative reconstruction, and/or weight basedadjustment of the mA/kV was utilized to reduce the radiation dose to as low as reasonably achievable. COMPARISON: XR Abdomen 01/27/2021; CT Abdomen Pelvis 07/30/2019. CLINICAL HISTORY: Lightheaded; Dizziness; Elevated CK; History of syncope; Essentialhypertension; Tobacco abuse; Mixed hyperlipidemia; SOB (shortness ofbreath). FINDINGS: VASCULATURE: The renal arteries are well visualized with no evidence of renal arterystenosis. There is an accessory renal artery on the right perfusing theinferior pole of the right kidney. GI BLEED: [...] well visualized with no evidence of renal arterystenosis. There is an accessory renal artery on the right perfusing theinferior pole of the right kidney. ILIAC ARTERIES: [...] in the lower pole calyx of the leftkidney. Punctate 1 mm stone in the lower pole calyx of the right kidneyand similarly punctate stone in the upper pole calyx of the right kidney.No obstructive uropathy. No hydronephrosis. No perinephric or periureteral stranding. Urinary bladderis unremarkable. GI AND BOWEL: Stomach and duodenal sweep demonstrate no acute abnormality. There is nobowel obstruction. No abnormal bowel wall thickening or distension. REPRODUCTIVE: Reproductive organs are unremarkable. PERITONEUM AND RETROPERITONEUM: No ascites or free air. LYMPH NODES: No lymphadenopathy. BONES AND SOFT TISSUES: No acute abnormality of the bones. No acute soft tissue abnormality. IMPRESSION: 1. Left nephrolithiasis with a 5 mm stone in the lower pole calyx. Noobstructive uropathy. 2. Punctate 1 mm stone in the lower pole calyx and a similar stone in theupper pole calyx of the right kidney. 3. Accessory renal artery on the right perfusing the inferior pole of theright kidney. No evidence of renal artery stenosis on either side . Authorizing ProviderResult TypeResult StatusAli F Kena Ardon [facility] CT ORDERABLES Final Result * (ABNORMAL) Basic Metabolic Panel (06/14/2025 4:38 PM EDT) Only the most recent of2 resultswithin the time period is included. ComponentValueRef RangeTest MethodAnalysis TimePerformed AtPathologist Signature Xdvjqa941124 - 145 mmol/L06/14/2025 4:38 PM [facility] Potassium4.53.7 - 5.3 mmol/L06/14/2025 4:38 PM [facility] FEWChgpepze74768 - 107 mmol/L06/14/2025 4:38 PM [facility] BSTPY81394 - 31 mmol/L06/14/2025 4:38 PM [facility] Anion Wpq398 - 16 mmol/L06/14/2025 4:38 PM [facility] Bwausir217(H)74 - 99 mg/dL06/14/2025 4:38 PM [facility] UEJ222 - 20 mg/dL06/14/2025 4:38 PM [facility] Creatinine1.2(H)0.50 - 0.90 mg/dL06/14/2025 4:38 PM [facility] LABEst, Glom Filt Rate57(L)>60 mL/min/1.98r33106/14/2025 4:38 PM [facility] LABComment: ? These results are not intended for use in patients <18 years of age. ? eGFR results are calculated without a race factor using the 2020 CKD-EPI equation. Careful clinical correlation is recommended, particularly when comparing to results calculated using previous equations. The CKD-EPI equation is less accurate in patients with extremes of muscle mass, extra-renal metabolism of creatine, excessive creatine ingestion, or following therapy that affects renal tubular secretion. BUN/Creatinine Slafl910 - 4:38 PM [facility] LABCalcium9.78.6 - 10.4 mg/dL06/14/2025 4:38 PM [facility] LABSpecimen (Source)Anatomical Location / LateralityCollection Method / Volume Collection TimeReceived TimeBloodBLOOD SPECIMEN / Wvmkzbn3306/14/2025 4:38 PM EDT 06/14/2025 4:39 PM EDT Narrative Authorizing ProviderResult TypeResult StatusBrett W Might [facility] - CNPCHEMISTRY ORDERABLESFinal ResultPerforming OrganizationAddressCity/State/ZIP CodePhone Number [facility] [address] [phone] * CBC (06/04/2025 10:22 AM EDT) Only the most recent of2 resultswithin the time period is included. ComponentValueRef RangeTest MethodAnalysis TimePerformed AtPathologist Signature WBC7.43.5 - 11.3 k/uL06/04/2025 10:22 AM [facility] LABRBC 4.003.95 - 5.11 m/uL06/04/2025 10:22 AM [facility] Orqiskftvf12.411.9 - 15.1 g/dL06/04/2025 10:22 AM [facility] NOLGbwnlxjzsx03.836.3 - 47.1 %06/04/2025 10:22 AM [facility] LLBJJF64.082.6 - 102.9 fL06/04/2025 10:22 AM [facility] KKFSZS51.025.2 - 33.5 pg06/04/2025 10:22 AM [facility] SXSXWDK59.028.4 - 34.8 g/dL06/04/2025 10:22 AM [facility] MWXMCB81.311.8 - 14.4 %06/04/2025 10:22 AM [facility] DPKObtvmjsnb765282 - 453 k/uL06/04/2025 10:22 AM [facility] LABMPV9.88.1 - 13.5 fL06/04/2025 10:22 AM [facility] LABNRBC Automated0.00.0 per 100 WBC06/04/2025 10:22 AM [facility] LABSpecimen (Source)Anatomical Location / LateralityCollection Method / VolumeCollection TimeReceived TimeBloodBLOOD SPECIMEN / Unknown 06/04/2025 10:22 AM EDT06/04/2025 10:23 AM EDT Narrative Authorizing ProviderResult TypeResult StatusAli Ehsan Ardon MDHEMATOLOGY ORDERABLESFinal ResultPerforming OrganizationAddressCity/State/ZIP CodePhone Number [facility] [address] [phone] * Brain Natriuretic Peptide (06/04/2025 10:22 AM EDT)ComponentValueRef RangeTest MethodAnalysis TimePerformed AtPathologist SignatureNT Pro-HJI453 - 125 pg/mL 06/04/2025 10:22 AM [facility] LABSpecimen (Source) Anatomical Location / LateralityCollection Method / VolumeCollection Time Received TimeBloodBLOOD SPECIMEN / Hpwksqf4606/04/2025 10:22 AM EDT06/04/2025 10:23 AM EDT Narrative Authorizing ProviderResult TypeResult StatusAli Ehsan Ardon MDCHEMISTRY ORDERABLES Final ResultPerforming OrganizationAddressCity/State/ZIP CodePhone Number [facility] [address] [place] [address], [facility] [phone] * US RENAL COMPLETE (05/31/2025 7:37 AM EDT)Anatomical RegionLateralityModality AbdomenUltrasoundSpecimen (Source)Anatomical Location / LateralityCollection Method / VolumeCollection TimeReceived Time05/31/2025 9:23 AM EDT Impressions 05/31/2025 9:24 AM EDT Increased renal parenchyma echogenicity bilaterally suggestive of chronic medical renal disease. Narrative 05/31/2025 9:24 AM EDT EXAMINATION: RETROPERITONEAL ULTRASOUND OF THE KIDNEYS AND URINARY BLADDER 05/31/2025 COMPARISON: None HISTORY: ORDERING SYSTEM PROVIDED HISTORY: BAILEE TECHNOLOGIST PROVIDED HISTORY: BAILEE FINDINGS: Kidneys: The right kidney measures 13 x 4.5 x 4.9 cm in length and the left kidney measures 12.8 x 5.4 x 6.1 cm in length. ??The right renal cortex measures 1.8 cm and the left renal cortex measures 1.7 cm. Kidneys demonstrate increased cortical echogenicity. ??No evidence of hydronephrosis or intrarenal stones. Bladder: Unremarkable appearance of the bladder. ??Prevoid volume 325 cc, postvoid volume 5 cc Procedure Note Brock Narvaez DO - 05/31/2025 EXAMINATION: RETROPERITONEAL ULTRASOUND OF THE KIDNEYS AND URINARY BLADDER 05/31/2025 COMPARISON: None HISTORY: ORDERING SYSTEM PROVIDED HISTORY: BAILEE TECHNOLOGIST PROVIDED HISTORY: BAILEE FINDINGS: Kidneys: The right kidney measures 13 x 4.5 x 4.9 cm in length and the leftkidney measures 12.8 x 5.4 x 6.1 cm in length. The right renal cortex measures1.8 cm and the left renal cortex measures 1.7 cm. Kidneys demonstrate increased cortical echogenicity. No evidence of hydronephrosis or intrarenal stones. Bladder: Unremarkable appearance of the bladder. Prevoid volume 325 cc, postvoid volume 5 cc IMPRESSION: Increased renal parenchyma echogenicity bilaterally suggestive ofchronic medical renal disease. Authorizing ProviderResult TypeResult StatusAli F O Duglas MDIMG US ORDERABLES Final Result * EKG Rhythm Strip (05/31/2025 6:00 AM EDT) Only the most recent of3 resultswithin the time period is included. Specimen (Source)Anatomical Location / LateralityCollection Method / Volume Collection TimeReceived Time05/31/2025 6:00 AM EDT Narrative [facility] - 05/31/2025 6:39 AM EDT Authorizing ProviderResult TypeResult StatusUnknown Provider ResultECG ORDERABLESFinal ResultPerforming OrganizationAddressCity/State/ZIP CodePhone Number [facility] [address] [place] [id number] [phone] * (ABNORMAL) Basic Metabolic Panel w/ Reflex to MG (05/31/2025 5:50 AM EDT) Only the most recent of2 resultswithin the time period is included. ComponentValueRef RangeTest MethodAnalysis TimePerformed AtPathologist Signature Evbkqo533267 - 145 mmol/L05/31/2025 5:50 AM [facility] Potassium5.23.7 - 5.3 mmol/L05/31/2025 5:50 AM [facility] WBQOzydylbs93359 - 107 mmol/L05/31/2025 5:50 AM [facility] HJKPV12027 - 31 mmol/L05/31/2025 5:50 AM [facility] Anion Fsz927 - 16 mmol/L05/31/2025 5:50 AM [facility] Utwdmaa742(H)74 - 99 mg/dL05/31/2025 5:50 AM [facility] BUN33(H)6 - 20 mg/dL05/31/2025 5:50 AM [facility] Creatinine1.1(H)0.50 - 0.90 mg/dL05/31/2025 5:50 AM [facility] LABEst, Glom Filt Rate59(L)>60 mL/min/1.87u41805/31/2025 5:50 AM [facility] LABComment: ? These results are not intended for use in patients <18 years of age. ? eGFR results are calculated without a race factor using the 2020 CKD-EPI equation. Careful clinical correlation is recommended, particularly when comparing to results calculated using previous equations. The CKD-EPI equation is less accurate in patients with extremes of muscle mass, extra-renal metabolism of creatine, excessive creatine ingestion, or following therapy that affects renal tubular secretion. BUN/Creatinine Ratio30(H) - 5:50 AM [facility] LABCalcium8.78.6 - 10.4 mg/dL05/31/2025 5:50 AM [facility] LABSpecimen (Source)Anatomical Location / LateralityCollection Method / VolumeCollection TimeReceived TimeBLOOD SPECIMEN / Efooofw2305/31/2025 5:50 AM EDT 05/31/2025 5:53 AM EDT Narrative Authorizing ProviderResult TypeResult StatusStefan Iacob MDCHEMISTRY ORDERABLES Final ResultPerforming OrganizationAddressCity/State/ZIP CodePhone Number [facility] [address] [phone] * (ABNORMAL) CBC auto differential (05/31/2025 5:50 AM EDT) Only the most recent of3 resultswithin the time period is included. ComponentValueRef RangeTest MethodAnalysis TimePerformed AtPathologist Signature WBC6.83.5 - 11.3 k/uL05/31/2025 5:50 AM [facility] LABRBC 3.51(L)3.95 - 5.11 m/uL05/31/2025 5:50 AM [facility] Gwsdccmrli15.7(L)11.9 - 15.1 g/dL05/31/2025 5:50 AM [facility] PAQVygrjnksru59.1(L)36.3 - 47.1 %05/31/2025 5:50 AM [facility] LLHWIC032.082.6 - 102.9 fL05/31/2025 5:50 AM [facility] TAMMVS35.525.2 - 33.5 pg05/31/2025 5:50 AM [facility] NOKYNOQ65.528.4 - 34.8 g/dL05/31/2025 5:50 AM [facility] PPTIKE93.911.8 - 14.4 %05/31/2025 5:50 AM [facility] LAXMeaabhvhg131376 - 453 k/uL05/31/2025 5:50 AM [facility] LABMPV9.68.1 - 13.5 fL05/31/2025 5:50 AM [facility] LABNRBC Automated0.00.0 per 100 WBC05/31/2025 5:50 AM [facility] LABNeutrophils %35(L)36 - 65 %05/31/2025 5:50 AM [facility] LABLymphocytes %50(H)24 - 43 %05/31/2025 5:50 AM [facility] LABMonocytes %83 - 12 %05/31/2025 5:50 AM [facility] LABEosinophils %5(H)1 - 4 %05/31/2025 5:50 AM [facility] LABBasophils %10 - 2 %05/31/2025 5:50 AM [facility] LABImmature Granulocytes %1(H)0 %05/31/2025 5:50 AM [facility] LABNeutrophils Absolute2.381.50 - 8.10 k/05/31/2025 5:50 AM [facility] LABLymphocytes Absolute3.351.10 - 3.70 k/uL 05/31/2025 5:50 AM [facility] LABMonocytes Absolute0.540.10 - 1.20 k/05/31/2025 5:50 AM [facility] LABEosinophils Absolute0.360.00 - 0.44 k/05/31/2025 5:50 AM [facility] LABBasophils Absolute0.080.00 - 0.20 k/05/31/2025 5:50 AM [facility] LABImmature Granulocytes Absolute0.060.00 - 0.30 k/uL05/31/2025 5:50 AM [facility] LABSpecimen (Source)Anatomical Location / LateralityCollection Method / VolumeCollection TimeReceived Time05/31/2025 5:50 AM EDT05/31/2025 5:53 AM EDT Narrative Authorizing ProviderResult TypeResult StatusStefan Tristan MDHEMATOLOGY ORDERABLES Final ResultPerforming OrganizationAddressCity/State/ZIP CodePhone Number [facility] [address] [phone] * (ABNORMAL) CK (05/31/2025 5:50 AM EDT)ComponentValueRef RangeTest Method Analysis TimePerformed AtPathologist SignatureTotal CK242(H)26 - 192 U/L 05/31/2025 5:50 AM [facility] LABSpecimen (Source) Anatomical Location / LateralityCollection Method / VolumeCollection Time Received TimeBloodBLOOD SPECIMEN / Cofuvqw7305/31/2025 5:50 AM EDT05/31/2025 5:53 AM EDT Narrative Authorizing ProviderResult TypeResult StatusAli F Kena Ardon MDCHEMISTRY ORDERABLES Final ResultPerforming OrganizationAddressCity/State/ZIP CodePhone Number [facility] [address] [phone] * (ABNORMAL) ECHO (TTE) COMPLETE (05/30/2025 9:34 AM EDT)ComponentValueRef Range Test MethodAnalysis TimePerformed AtPathologist SignatureBody Surface Area2.22 m2BSMH CV CPACSLV EDV W6V18vXURRH CV CPACSLV EDV O4K96pZIBHY CV CPACSLV ESV B9H96iSZVCD CV CPACSLV ESV N0Y52dMLNRP CV CPACSIVSd0.90.6 - 0.9 cmBSMH CV CPACSLVIDd5.6(A)3.9 - 5.3 cmBSMH CV CPACSLVIDs3.5cmBSMH CV CPACSLVOT Mean Zcqbhlne9jyJcUDXP CV CPACSLVOT VTI26.5cmBSMH CV CPACSLVOT Peak Velocity1.4m/s [facility] CV CPACSLVOT Peak Quysoecu3orKgQCMT CV CPACSLVPWd1.0(A)0.6 - 0.9 cmBSMH CV CPACSLV E' Lateral Hmcmipnd53.40cm/sBSMH CV CPACSLV Ejection Fraction A2C66 %[facility] CV CPACSLV Ejection Fraction A4C67%[facility] CV CPACSEF FD8353 - 100 %[facility] CV CPACSLA Minor Axis5.8cmBSMH CV CPACSLA Major Axis6.1cmBSMH CV CPACSLA Area 2C 18.7ng0WPQY CV CPACSLA Area 4C18.0bg0TXNC CV CPACSLA Volume MOD E3Y2362 - 52 mLBSMH CV CPACSLA Volume MOD S2R4467 - 52 mLBSMH CV CPACSLA Volume GP6099 - 52 mLBSMH CV CPACSAV Cusp Mmode1.5cmBSMH CV CPACSAV Mean Ntvgqojc2mjRhGLFP CV CPACSAV VTI31.9cmBSMH CV CPACSAV Mean Velocity1.2m/sBSMH CV CPACSAV Peak Velocity1.8m/sBSMH CV CPACSAV Peak Rhnzcuqf64rtWqHGMB CV CPACSSinotubular Junction2.3cmBSMH CV CPACSAortic Sinus Valsalva2.6cmBSMH CV CPACSMV E Wave Deceleration Nalc527.0msBSMH CV CPACSMV A Velocity1.04m/sBSMH CV CPACSMV E Velocity1.24m/sBSMH CV CPACSPV Max Velocity1.1m/sBSMH CV CPACSPV Peak Gradient 5mmHgBSMH CV CPACSTAPSE2.2>=1.7 cmBSMH CV CPACSTR Max Velocity2.51m/sBSMH CV CPACSTR Peak Nmirgjuv57lrPuDLCA CV CPACSFractional Shortening 6P9670 - 44 % [facility] CV CPACSLV ESV Index G2N60cE/m2BSMH CV CPACSLV EDV Index H6I05qN/m2BSMH CV CPACSLV ESV Index O7Q79fB/m2BS[facility] CV CPACSLV EDV Index G8L93mB/m2BS[facility] CV CPACSLVIDd Index2.62cm/m2BS[facility] CV CPACSLVIDs Index1.64cm/m2BS[facility] CV CPACSLV RWT Ratio0.36BS[facility] CV CPACSLV Mass 2D205.5(A)67 - 162 gBSMH CV CPACSLV Mass 2D Index96.0(A)43 - 95 g/m2BS[facility] CV CPACSMV E/A1.19[facility] CV CPACSE/E' Uzfdnlm83.92 [facility] CV CPACSLA Volume Index SV4109 - 34 ml/m2BSMH CV CPACSLA Volume Index MOD R6O6345 - 34 ml/m2BS[facility] CV CPACSLA Volume Index MOD J2W8893 - 34 ml/m2[facility] CV CPACSAortic Sinus Valsalva Index1.21cm/m2BS[facility] CV CPACSAV Velocity Ratio0.78 [facility] CV CPACSLVOT:AV VTI Index0.83BS[facility] CV CPACSEst. RA Qoxkgqgu0xqPmJOLK CV VXCWTKSWD71akRvEPHH CV CPACSEF Tizbefinl41%[facility] CV CPACSAnatomical Region LateralityModalityEchocardiographySpecimen (Source)Anatomical Location / LateralityCollection Method / VolumeCollection TimeReceived Time Narrative 05/30/2025 1:27 PM EDT Left Ventricle: Normal left ventricular systolic function with a visually estimated EF of 60 - 65%. Left ventricle size is normal. Mildly increased wall thickness. Normal wall motion. Grade I diastolic dysfunction with normal LAP. ?Right??Ventricle: Right ventricle size is normal. Normal systolic function. ?Mitral??Valve: Trace regurgitation. ?Aorta: Normal sized aortic root and ascending aorta. ?Pericardium: There is evidence of epicardial fat. No [...] Details Image quality: adequate. No contrast was given. Authorizing ProviderResult TypeResult StatusStefan Iacob [facility] ECHO ORDERABLES Final Result * (ABNORMAL) Troponin (05/30/2025 3:13 AM EDT) Only the most recent of2 resultswithin the time period is included. ComponentValueRef RangeTest MethodAnalysis TimePerformed AtPathologist Signature Troponin, High Jzioijruqgy74(H)0 - 14 ng/L05/30/2025 3:13 AM [facility] LABComment:High Sensitivity Troponin values cannot be compared with other Troponin methodologies.Specimen (Source)Anatomical Location / LateralityCollection Method / VolumeCollection TimeReceived TimeBloodBLOOD SPECIMEN / Ficotnu5505/30/2025 3:13 AM EDT05/30/2025 3:15 AM EDT Narrative Authorizing ProviderResult TypeResult StatusChkevin Jhaveri MDCHEMISTRY ORDERABLESFinal ResultPerforming OrganizationAddressCity/State/ZIP CodePhone Number [facility] [address] [place] [address] * Magnesium (05/30/2025 12:37 AM EDT)ComponentValueRef RangeTest MethodAnalysis TimePerformed AtPathologist SignatureMagnesium2.51.6 - 2.6 mg/dL05/30/2025 12:37 AM [facility] LABSpecimen (Source)Anatomical Location / LateralityCollection Method / VolumeCollection TimeReceived Time 05/30/2025 12:37 AM EDT05/30/2025 12:41 AM EDT Narrative Authorizing ProviderResult TypeResult StatusChkevin Jhaveri MDCHEMISTRY ORDERABLESFinal ResultPerforming OrganizationAddressCity/State/ZIP CodePhone Number [facility] [address] [phone] * (ABNORMAL) Comprehensive Metabolic Panel (05/30/2025 12:37 AM EDT) Only the most recent of2 resultswithin the time period is included. ComponentValueRef RangeTest MethodAnalysis TimePerformed AtPathologist Signature Ckfejl129056 - 145 mmol/L05/30/2025 12:37 AM [facility] Potassium5.33.7 - 5.3 mmol/L05/30/2025 12:37 AM [facility] PFBSzifbnxp65869 - 107 mmol/L05/30/2025 12:37 AM [facility] AYCLB17790 - 31 mmol/L05/30/2025 12:37 AM [facility] Anion Wlr111 - 16 mmol/L05/30/2025 12:37 AM [facility] Ptimppw148(H)74 - 99 mg/dL05/30/2025 12:37 AM [facility] WIDFIQ02(H)6 - 20 mg/dL05/30/2025 12:37 AM [facility] Creatinine2.9(H)0.50 - 0.90 mg/dL05/30/2025 12:37 AM [facility] LABEst, Glom Filt Rate19(L)>60 mL/min/1.88j90505/30/2025 12:37 AM T [facility] LABComment: ? These results are not intended for use in patients <18 years of age. ? eGFR results are calculated without a race factor using the 2020 CKD-EPI equation. Careful clinical correlation is recommended, particularly when comparing to results calculated using previous equations. The CKD-EPI equation is less accurate in patients with extremes of muscle mass, extra-renal metabolism of creatine, excessive creatine ingestion, or following therapy that affects renal tubular secretion. BUN/Creatinine Kgtww582 - 12:37 AM [facility] LABCalcium8.98.6 - 10.4 mg/dL05/30/2025 12:37 AM [facility] LABTotal Protein6.96.6 - 8.7 g/dL05/30/2025 12:37 AM [facility] LABAlbumin4.03.5 - 5.2 g/dL05/30/2025 12:37 AM [facility] LABAlbumin/Globulin Ratio1.41.0 - 2. 12:37 AM [facility] LABTotal Bilirubin<0.20.00 - 1.20 mg/dL05/30/2025 12:37 AM [facility] LABAlkaline Baunxbhqcwo7637 - 104 U/L 05/30/2025 12:37 AM [facility] IXQUPK3159 - 35 U/L 05/30/2025 12:37 AM [facility] YGJCBD9237 - 35 U/L 05/30/2025 12:37 AM [facility] LABSpecimen (Source) Anatomical Location / LateralityCollection Method / VolumeCollection Time Received Time05/30/2025 12:37 AM EDT05/30/2025 12:41 AM EDT Narrative Authorizing ProviderResult TypeResult StatusChristian L Posadny MDCHEMISTRY ORDERABLESFinal ResultPerforming OrganizationAddressCity/State/ZIP CodePhone Number [facility] [address] [phone] * XR CHEST (2 VW) (05/29/2025 11:32 PM EDT)Anatomical RegionLateralityModality ChestComputed RadiographySpecimen (Source)Anatomical Location / Laterality Collection Method / VolumeCollection TimeReceived CghuIqrii46/04/2025 12:55 AM EDT Impressions 05/30/2025 12:56 AM EDT No acute cardiopulmonary process. Narrative 05/30/2025 12:56 AM EDT EXAMINATION: TWO XRAY VIEWS OF THE CHEST 05/29/2025 11:32 pm COMPARISON: 12/07/2023 HISTORY: ORDERING SYSTEM PROVIDED HISTORY: lightheaded TECHNOLOGIST PROVIDED HISTORY: lightheaded FINDINGS: There are dense breast shadows. ??The lungs are clear on the lateral image. No confluent airspace disease, pneumothorax or pleural fluid. ??Heart size and configuration are normal. ??No acute bone finding. Procedure Note Bartolome Stewart MD - 05/30/2025 EXAMINATION: TWO XRAY VIEWS OF THE CHEST 05/29/2025 11:32 pm COMPARISON: 12/07/2023 HISTORY: ORDERING SYSTEM PROVIDED HISTORY: lightheaded TECHNOLOGIST PROVIDED HISTORY: lightheaded FINDINGS: There are dense breast shadows. The lungs are clear on the lateralimage. No confluent airspace disease, pneumothorax or pleural fluid. Heart sizeand configuration are normal. No acute bone finding. IMPRESSION: No acute cardiopulmonary process. Authorizing ProviderResult TypeResult StatusInder Jhaveri MDIMG DIAGNOSTIC IMAGING ORDERABLESFinal Result * TSH (05/29/2025 11:17 PM EDT)ComponentValueRef RangeTest MethodAnalysis Time Performed AtPathologist SignatureTSH0.840.27 - 4.20 uIU/mL05/29/2025 11:17 PM [facility]: Specimen hemolysis has exceeded the interference as defined by Amauri. Value may be falsely increased. Suggest recollection if clinically indicated. Specimen (Source)Anatomical Location / LateralityCollection Method / Volume Collection TimeReceived TimeBloodBLOOD SPECIMEN / Uzoxijs2905/29/2025 11:17 PM EDT 05/29/2025 11:29 PM EDT Narrative Authorizing ProviderResult TypeResult StatusInder Jhaveri MDCHEMISTRY ORDERABLESFinal ResultPerforming OrganizationAddressCity/State/ZIP CodePhone Number [facility] [address] [place] [address] * COVID-19, Rapid (05/29/2025 11:08 PM EDT)ComponentValueRef RangeTest Method Analysis TimePerformed AtPathologist SignatureSpecimen Description .NASOPHARYNGEAL SWAB05/29/2025 11:08 PM [facility] SARS-CoV-2, RapidNot DetectedNot Hvzipdhp15/03/2025 11:08 PM [facility] LABComment: ? Rapid NAAT: ??The specimen is NEGATIVE for SARS-CoV-2, the novel coronavirus associated with COVID-19. ? The ID NOW COVID-19 assay is designed [...] the sole basis for patient management decisions. ? Methodology: Isothermal Nucleic Acid Amplification Specimen (Source)Anatomical Location / LateralityCollection Method / Volume Collection TimeReceived TimeNASOPHARYNGEAL SWAB / Throyub8505/29/2025 11:08 PM EDT 05/29/2025 11:11 PM EDT Narrative Authorizing ProviderResult TypeResult StatusChbayhealth medical center L Posadny [facility] HOSPITALICROBIOLOGY - GENERAL ORDERABLESFinal ResultPerforming OrganizationAddressCity/State/ZIP Code Phone Number [facility] [address] [place] [address] * Rapid influenza A/B antigens (05/29/2025 11:08 PM EDT)ComponentValueRef Range Test MethodAnalysis TimePerformed AtPathologist SignatureFlu A AntigenNEGATIVE JOJVGSQO40/03/2025 11:08 PM [facility] LABComment:for Influenza A AntigenFlu B JfjaxzuOQDMXBWEEYWJFMMA55/03/2025 11:08 PM [facility] LABComment:for Influenza B Antigen.Specimen (Source) Anatomical Location / LateralityCollection Method / VolumeCollection Time Received TimeNASOPHARYNGEAL SWAB / Nethhhj3105/29/2025 11:08 PM EDT05/29/2025 11:11 PM EDT Narrative Authorizing ProviderResult TypeResult StatusChristian L Posadny MDMICROBIOLOGY - GENERAL ORDERABLESFinal ResultPerforming OrganizationAddressty/State/ZIP Code Phone Number [facility] [address] [place] [address], [facility] [phone] * LDL Cholesterol, Direct (05/23/2025 3:44 PM EDT)ComponentValueRef RangeTest MethodAnalysis TimePerformed AtPathologist SignatureLDL Ghlgar41<100 mg/dL 05/23/2025 3:44 PM EDTMERCY LABORATORIESSpecimen (Source)Anatomical Location / LateralityCollection Method / VolumeCollection TimeReceived Time05/23/2025 3:44 PM EDT05/23/2025 3:45 PM EDT Narrative Authorizing ProviderResult TypeResult StatusGénesis Stoner HEALTH ADVOCATE - CNPCHEMISTRY ORDERABLESFinal ResultPerforming OrganizationAddressCity/State/ZIP CodePhone Number [facility] [address] [place] [address], [facility] [phone] [facility] [address] [place] [address], [facility] [phone] * (ABNORMAL) Lipid Panel (05/23/2025 3:44 PM EDT)ComponentValueRef RangeTest MethodAnalysis TimePerformed AtPathologist SignatureCholesterol, Ljqul359(H)0 - 199 mg/dL05/23/2025 3:44 PM EDTMERCY LABORATORIESComment: Cholesterol Guidelines: <200 Desirable 200-240 ??Borderline >240 Undesirable HDL26(L)>40 mg/dL05/23/2025 3:44 PM EDTMERCY LABORATORIESComment: HDL Guidelines: <40 Undesirable 40-59 ?Borderline >59 Desirable LDL CholesterolCan not be calculated0 - 100 mg/dL05/23/2025 3:44 PM EDTMERCY LABORATORIESComment: LDL Guidelines: <100 Desirable 100-129 ?? Near to/above Desirable 130-159 ?? Borderline >159 Undesirable Direct (measured) LDL and calculated LDL are not interchangeable tests. Chol/HDL Ratio11.4(H)<5.008 3:44 PM EDTMERCY LABORATORIESTriglycerides 1,012(H)<150 mg/dL05/23/2025 3:44 PM EDTMERCY LABORATORIESComment: Triglyceride Guidelines: <150 Desirable 150-199 ??Borderline 200-499 ??High >499 Very high Based on AHA Guidelines for fasting triglyceride, June 2012. VLDLCan not be calculated1 - 30 mg/dL05/23/2025 3:44 PM EDTMERCY LABORATORIES Specimen (Source)Anatomical Location / LateralityCollection Method / Volume Collection TimeReceived TimeBloodBLOOD SPECIMEN / Mewffwx7405/23/2025 3:44 PM EDT 05/23/2025 3:45 PM EDT Narrative Authorizing ProviderResult TypeResult Statusj carlos Stoner HEALTH ADVOCATE - CNPCHEMISTRY ORDERABLESFinal ResultPerforming OrganizationAddressCity/State/ZIP CodePhone Number [facility] [address] [place] [address], [facility] [phone] [phone] * (ABNORMAL) Hemoglobin A1C (04/25/2025 3:48 PM EDT)ComponentValueRef RangeTest MethodAnalysis TimePerformed AtPathologist SignatureHemoglobin A1C8.8(H)4.0 - 6.0 %04/25/2025 3:48 PM EDTMERCY LABORATORIESEstimated Avg Vjhhefy130bk/dL 04/25/2025 3:48 PM EDTMERCY LABORATORIESComment: The ADA and AACC recommend providing the estimated average glucose result to permit better patient understanding of their HBA1c result. Specimen (Source)Anatomical Location / LateralityCollection Method / Volume Collection TimeReceived Time04/25/2025 3:48 PM EDT04/25/2025 3:49 PM EDT Narrative Authorizing ProviderResult TypeResult StatusRolan SalyerCHEMISTRY ORDERABLESFinal ResultPerforming OrganizationAddressCity/State/ZIP CodePhone Number [facility] [address] [place] [address], [facility] [phone] [phone] * Microalbumin, Ur (03/23/2024 3:57 PM EDT)ComponentValueRef RangeTest Method Analysis TimePerformed AtPathologist SignatureAlbumin Urine<120 - 20 mg/L 03/23/2024 3:57 PM EDTMERCY LABORATORIESCreatinine, Ur78.928.0 - 217.0 mg/dL 03/23/2024 3:57 PM EDTMERCY LABORATORIESMicroalb/Senior Environmental Consultant. RatioCan not be calculated0.0 - 25.0 mcg/mg creat06/ 3:57 PM EDTMERCY LABORATORIES Specimen (Source)Anatomical Location / LateralityCollection Method / Volume Collection TimeReceived VrvsLqsfy67/28/2024 3:57 PM EDT03/23/2024 4:27 PM EDT Narrative Authorizing ProviderResult TypeResult StatusBrett W Might HEALTH ADVOCATE - CNPURINE ORDERABLESFinal ResultPerforming OrganizationAddressCity/State/ZIP CodePhone Number [facility] [address] [place] [address], [facility] [phone] [facility] [address] [place] [address], [facility] [phone] * Colonoscopy (12/08/2022 12:09 PM EDT)Specimen (Source)Anatomical Location / LateralityCollection Method / VolumeCollection TimeReceived Time Narrative John, User - 12/08/2022 12:09 PM EDT No dictation Authorizing ProviderResult TypeResult StatusVinaresh Curtis MDENDOSCOPY ORDERABLESFinal Result * [facility] DIGITAL SCREEN BILATERAL (05/15/2021 12:38 PM EDT)Anatomical Region LateralityModalityBilateralMammographySpecimen (Source)Anatomical Location / LateralityCollection Method / VolumeCollection TimeReceived Time05/15/2021 12:40 PM EDT Impressions 05/15/2021 2:31 PM EDT No mammographic evidence of malignancy. BI-RADS 1 BIRADS: BIRADS - CATEGORY 1 Negative, no evidence of malignancy. ??Normal interval follow-up is recommended in 12 months. OVERALL ASSESSMENT - NEGATIVE A letter of notification will be sent to the patient regarding the results. The [employer] recommends annual mammograms for women 40 years and older. Narrative 05/15/2021 2:31 PM EDT EXAMINATION: SCREENING DIGITAL BILATERAL ??MAMMOGRAM WITH TOMOSYNTHESIS, 05/15/2021 TECHNIQUE: Screening mammography was performed with tomosynthesis including MLO and CC views of the bilateral breasts. Computer aided detection was used for the interpretation of this exam. COMPARISON: 03/12/2016 HISTORY: Screening. FINDINGS: The breast tissue is composed of scattered fibroglandular tissue. ??There is no suspicious mass, suspicious microcalcification, or area of architectural distortion. Authorizing ProviderResult TypeResult StatusBredino Lemos HEALTH ADVOCATE - CNPIMG MAMMOGRAPHY ORDERABLESFinal Result * Hepatitis C Antibody (03/11/2021 12:57 PM EDT)ComponentValueRef RangeTest MethodAnalysis TimePerformed AtPathologist SignatureHepatitis C AbNONREACTIVE UMEVGQCAREJ28/16/2021 12:57 PM EDTMERCY LABORATORIESComment: ? The hepatitis C procedure used in our laboratory is a Chemiluminescent test specific for three recombinant HCV antigens. ??A negative anti-HCV result indicates that the antibodies to hepatitis C virus are not present at this time. Individuals with reactive anti-HCV should be considered infected and infectious until proven otherwise. ??Confirmation of all equivocal or reactive results is recommended by ordering HCV RNA by PCR. Specimen (Source)Anatomical Location / LateralityCollection Method / Volume Collection TimeReceived TimeBLOOD SPECIMEN / Pcwmeja3003/11/2021 12:57 PM EDT 03/11/2021 12:58 PM EDT Narrative Authorizing ProviderResult TypeResult StatusJelexie Willett HEALTH ADVOCATE - OUTSOLE PARAFFINER IMMUNOLOGY ORDERABLESFinal ResultPerforming OrganizationAddressCity/State/ZIP CodePhone Number [facility] [address] [place], [place] [address] [phone] [phone] * DIABETES EYE EXAM (10/17/2019) Narrative Authorizing ProviderResult TypeResult StatusHistorical Provider [facility] MAINTENANCEFinal Result * ECONOMETRICS PROFESSOR Cytology (06/02/2017 12:29 PM EDT)ComponentValueRef RangeTest Method Analysis TimePerformed AtPathologist SignatureCytology Report(NOTE) [id number] [facility] ??LABORATORIES CONSULTING PATHOLOGISTS [facility] ANATOMIC PATHOLOGY [address] [place] [address]. ??[place], [place] [address] GYNECOLOGIC CYTOLOGY REPORT Patient Name: VIRGIL JOSHI MR#: [id number] Specimen #[id number] Source: 1: Vaginal material, (ThinPrep vial, Imaging-assisted review) Clinical History Z01.419 Routine animal surgeon exam without abnormal findings Z12.4 Encounter for screening for malignant neoplasm of cervix High risk HPV DNA testing is requested if the diagnosis is abnormal LMP: ??04/14/2016 INTERPRETATION Vaginal material, (ThinPrep vial, Imaging-assisted review): Specimen Adequacy: ?Satisfactory for evaluation. Descriptive Diagnosis: ?Negative for intraepithelial lesion or malignancy. Foreign Language Stenographer: ?? TARSHA Arriola(ASCP) Electronically Signed Out savannah/06/08/2017 06/08/2017 12:00 AM EDTMERCY LABORATORIESSpecimen (Source)Anatomical Location / LateralityCollection Method / VolumeCollection TimeReceived Time06/02/2017 12:29 PM EDT06/03/2017 12:29 PM EDT Narrative Authorizing ProviderResult TypeResult StatusWemichael Ahn MDPATHOLOGY/CYTOLOGY ORDERABLESFinal ResultPerforming OrganizationAddressCity/State/ZIP CodePhone Number [facility] [address] [place], [place] [address] [phone] [place] [id number] [phone] from Last 3 Months or Most Recently Relevant to Health Maintenance Insurance * Guarantor: Virgil Joshi TypeRelation to PatientDate of BirthPhone Billing AddressPersonal/WfhpjgGesq1975 [address] [facility] * Guarantor: Virgil Joshi TypeRelation to PatientDate of BirthPhone Billing AddressPersonal/IewdcmYgrz1975 [address] [facility] * Guarantor: Virgil Joshi TypeRelation to PatientDate of BirthPhone Billing AddressPersonal/HetkoqLjyf1975 [address] [facility] Advance Directives TypeDate RecordedPatient RepresentativeExplanationACP-Advance Directive 09/24/2013 3:29 PMACP-Power of Fksyosqn28/30/2013 3:29 PMACP-Advance Directive 06/13/2023 12:08 PMHealth Care Power of Certified Pest Control Technician * Full Code (Latest Code Status on File) Date ActivatedDate EndylchmuvcPngpqugq70/28/2025 6:31 AM07/23/2025 11:42 AM * Full Code Date ActivatedDate InactivatedComments05/30/2025 4:57 AM05/31/2025 3:25 PM * Full Code Date ActivatedDate FusmarisnybCiivbwiq26/20/2024 1:39 PM09/15/2024 7:56 PM * Full Code Date ActivatedDate VflqdgwezgbJhgapwln73/20/2024 11:28 AM12 1:39 PM * Full Code Date ActivatedDate AozgstnhwjcWotfieum48/28/2024 6:49 PM10 7:33 PM NameRelationshipHealthcare Agent RelationshipCommunicationScott [facility] Primary Decision Maker* * * Iliana GreenChildSecondary Decision Maker* Care Teams Team MemberRelationshipSpecialtyStart DateEnd Date Might, Ryder Combs, HEALTH ADVOCATE - OUTSOLE PARAFFINER PCP - GeneralFamily Nurse Practitioner05/10/18
--- OUTSIDE RECORDS SUMMARY | 2025-08-19 09:08 | XMS_ITS | Encounter Summary ---
Author Organization [facility] Address [address], [address] [place] [address] Care Team Providers Care Customer Engagement Manager Name Role Phone Ryder Lemos APRN - LEAD BI DEVELOPER Primary Care Provider Encounter Details DateTypeDepartmentCare Team (Latest Contact Info)Todzrlfkmza53/22/2025Results Follow-Up [facility] [address] [place] [address] Ryder Lemos APRN - CNP [address] [place] [address] Social History Tobacco UseTypesPacks/DayYears UsedDateSmoking Tobacco: Every QntMcwfkzkcug141 Smokeless Tobacco: NeverAlcohol UseStandard Drinks/WeekCommentsNever0 (1 standard [...] like food, housing, medical care, and heating?Patient zfmvjxqo06/22/2024HQ-2AnswerDate RecordedPHQ-9 Total Djwfq709PRAPARE - TransportationAnswerDate RecordedIn the past 12 months, [...] steady place to sleep or slept in zeelandelter (including now)?Patient xyyxpfie68/03/2024 Housing Stability Vital SignAnswerDate RecordedIn the last 12 months, was there a time when you were not able to pay the mortgage or rent on time?No05/30/2025In the past 12 months, how many times have you moved where you were living?0 05/30/2025t any time in the past 12 months, were you homeless or living in a fdc (including now)?No05/30/2025UDIT-CAnswerDate RecordedQ1: How often do you [...] Domain Source: IP Abuse ScreeningAnswerDate Recorded Physical yalxbPgumfv38/28/2025Verbal ihbbvPjzlaj11/28/2025Emotional abuseDenies 07/23/2025Financial vecqjCflbxe05/28/2025Sexual xhfnrNabkwo78/28/2025 CommentsNoSex and Gender InformationValueDate RecordedSex Assigned at Datpcx8601/01/2025 10:17 AM EDTLegal SdfTfdmht93/10/2013 1:17 PM ESTGender HawgkaozWdqonb05/08/2025 10:17 AM EDTSexual OrientationNot on filedocumented as of this encounter Plan of Treatment DateTypeDepartmentCare Team (Latest Contact Info)Ajuxzjkixsd73/25/2025 2:00 PM ESTAppointment [facility] [address] [place], [place] [id number] Allergy injections. Dr Dixon.09/09/2025 3:40 PM ESTOffice Visit [facility] [place] [address] [place] [address] Ryder Lemos, HORSE RANCHER - LEAD BI DEVELOPER [address] [place] [phone] Pre-Op Clearance 10/04/25 @ [facility] (Form on file)Labs/EKG/CXR to be completed 1 wk prior10/08/2025 1:[address] [facility] Part of [address] [address] Nathan Ardon MD [address] [place], [place] [address], [place] [address] 3 month follow up10/10/2025 4:00 PM ESTAppointment [facility] Mamm[facility] [address] [place] [address] epic/pt01 1:[address] [facility] Part of [facility] [address] [place] [address] Preethi Tidwell HORSE RANCHER - LEAD BI DEVELOPER [address] [place] [address] KUBdocumented as of this encounter Visit Diagnoses Not on filedocumented in this encounter Care Teams Team MemberRelationshipSpecialtyStart DateEnd Date Canelo, Ryder Combs APRN - LEAD BI DEVELOPER PCP - GeneralFamily Nurse Practitioner05/10/18documented as of this encounter
--- OUTSIDE RECORDS SUMMARY | 2025-08-19 09:09 | XMS_ITS | Encounter Summary ---
Author Organization [facility] Address [address] [place] [address] Care Team Providers Care Tetryl Nitrator Operator Name Role Phone Juvenal Azevedo DPZarina Primary Care Provider Eric Darby Unavailable Unavailable Suzi Longoria CNP Unavailable Source Comments In the event this information is protected by the Federal Confidentiality of Alcohol and Drug AbusePatient Records regulations: The Federal rules restrict any use of the information to criminally investigate or prosecute any alcohol or drug abuse patient.[facility] Reason for Referral * Consult, Test, Treat (Routine) - Pending ReviewSpecialtyDiagnoses / Procedures Referred By ContactReferred To ContactPain Management Diagnoses Fibromyalgia Procedures OFFICE/OUTPATIENT [facility] 60 MINUTES Suzi Longoria, [place] [address] [place] [phone] Phone: tel: fax: Referral IDStatusReasonStart DateExpiration DateVisits RequestedVisits [id number] Review PCP Requested Referral Scheduling Instructions Clinical reason(s) for this consult to Pain Management: Fibromyalgia. Our schedulers will reach out to you to schedule your appointment. If you need to contact them, they can be reached at [phone] For [place] appointments: [phone] For [facility] appointments: [phone], Option 2 For [facility] appointments: [phone] For [place] appointments: [phone] Encounter Details DateTypeDepartmentCare Team (Latest Contact Info)Jcsutoikydy51/14/2025Transcribe Orders Referring Physician [address] [place] [address] Suiz Longoria CNP [address] [facility] [address] [place] [address] Fibromyalgia (Primary Dx) Social History Tobacco UseTypesPacks/DayYears UsedDateSmoking Tobacco: Every RfaRjexyxvwkd403 Smokeless Tobacco: NeverAlcohol UseStandard Drinks/WeekCommentsNot Currently0 (1 standard drink = 0.6 oz pure alcohol)Area Deprivation IndexAnswerDate Recorded National Score (1-100), lower number is lower riskNot on file09/01/2020State Score (1-10), lower number is lower riskNot on file09/01/2020Data from: https://www.neighborhoodatlas.medicine.[facility].edu/. Last address used for calculationNot on file09/01/2020CommentsNoSex and Gender Information ValueDate RecordedSex Assigned at BirthNot on fileLegal ZnlFnnopq63/02/2012 8:22 AM ESTGender IdentityNot on fileSexual OrientationNot on filedocumented as of this encounter Plan of Treatment NameTypePriorityAssociated DiagnosesOrder ScheduleCONSULT TO PAIN MGTReferral Routine Fibromyalgia 1 Occurrences starting 08/09/2025 until 08/09/2026documented as of this encounter Visit Diagnoses Diagnosis Fibromyalgia- Primary Mylagia and myositis, unspecified documented in this encounter Care Teams Team MemberRelationshipSpecialtyStart DateEnd Date Juvenal Azevedo DPM PCP - General06/17/09 Eric Darby Gastroenterology05/21/19 Suzi Longoria, [place] [address] [place] [address] ReferringPain Ktckpxzpnc66/14/25documented as of this encounter
--- OUTSIDE RECORDS SUMMARY | 2025-08-19 09:09 | XMS_ITS | Encounter Summary ---
Author Organization [facility] Address [address], [address] [place] [address] Care Team Providers Care Payroll Administrator Name Role Phone Ryder Lmeos APRN - RESTAURANT MANAGING PARTNER Primary Care Provider Encounter Details DateTypeDepartmentCare Team (Latest Contact Info)Hnekxctffrg77/21/2025Abstract [facility] [place] [address] [place] [address] Ryder Lemos APRN - CNP [address] [place] [address] Social History Tobacco UseTypesPacks/DayYears UsedDateSmoking Tobacco: Every GgfGnbckygmvo144 Smokeless Tobacco: NeverAlcohol UseStandard Drinks/WeekCommentsNever0 (1 standard [...] like food, housing, medical care, and heating?Patient fkyudpjm59/22/2024HQ-2AnswerDate RecordedPHQ-9 Total Robqz607PRAPARE - TransportationAnswerDate RecordedIn the past 12 months, [...] steady place to sleep or slept in cornishelter (including now)?Patient cjgliodq50/03/2024 Housing Stability Vital SignAnswerDate RecordedIn the last 12 months, was there a time when you were not able to pay the mortgage or rent on time?No05/30/2025In the past 12 months, how many times have you moved where you were living?0 05/30/2025t any time in the past 12 months, were you homeless or living in a mcfp (including now)?No05/30/2025UDIT-CAnswerDate RecordedQ1: How often do you [...] Domain Source: IP Abuse ScreeningAnswerDate Recorded Physical fyxfrVvgecs76/28/2025Verbal ehkqiBjnkro28/28/2025Emotional abuseDenies 07/23/2025Financial ugabdDmpstu90/28/2025Sexual mlkbiWfircl08/28/2025 CommentsNoSex and Gender InformationValueDate RecordedSex Assigned at Qiesah6501/01/2025 10:17 AM EDTLegal TlfEoobcx66/10/2013 1:17 PM ESTGender TsrvvrscTihvhn32/08/2025 10:17 AM EDTSexual OrientationNot on filedocumented as of this encounter Plan of Treatment DateTypeDepartmentCare Team (Latest Contact Info)Udreaqswwoz57/25/2025 2:00 PM ESTAppointment [facility] [address] [place], [place] [phone] Allergy injections. Dr Dixon.09/09/2025 3:40 PM ESTOffice Visit [facility] [place] [address] [place] [address] Ryder Lemos, EXPLOSIVES ENGINEER - RESTAURANT MANAGING PARTNER [address] [place] [address] Pre-Op Clearance 10/04/25 @ [facility] (Form on file)Labs/EKG/CXR to be completed 1 wk prior10/08/2025 1:20 PM ESTOffice Visit [facility]ARD[facility] Part of [address] [address] Nathan Adron MD [address] [place] [address] [place] [address] 3 month follow up01/ 4:00 PM ESTAppointment [facility] Mammography [address] [place] [phone] epic/pt10/24/2025 1:00 PM ESTOffice Visit [facility] Part of [facility] [address] [place] [address] Preethi Tidwell EXPLOSIVES ENGINEER - RESTAURANT MANAGING PARTNER [address] [facility] [address] [place] [address] KUBdocumented as of this encounter Visit Diagnoses Not on filedocumented in this encounter Care Teams Team MemberRelationshipSpecialtyStart DateEnd Date Might, Ryder Combs APRN - RESTAURANT MANAGING PARTNER PCP - GeneralFamily Nurse Practitioner05/10/18documented as of this encounter
--- OUTSIDE RECORDS SUMMARY | 2025-08-19 09:09 | XMS_ITS | Encounter Summary ---
Author Organization [facility] Address [address] [place] [id number] Care Team Providers [employer] Truck Driver Name Role Phone Juvenal Azevedo DPZarina Primary Care Provider Eric Darby Unavailable Unavailable Suzi Longoria CNP Unavailable Source Comments In the event this information is protected by the Federal Confidentiality of Alcohol and Drug AbusePatient Records regulations: The Federal rules restrict any use of the information to criminally investigate or prosecute any alcohol or drug abuse patient.[facility] Encounter Details DateTypeDepartmentCare Team (Latest Contact Info)Kksorulihpo90/20/2025 Patient Msg Referring Physician [address] [place] [phone] Provider, Ccf Referral Social History Tobacco UseTypesPacks/DayYears UsedDateSmoking Tobacco: Every YptMoqnosspfv761 Smokeless Tobacco: NeverAlcohol UseStandard Drinks/WeekCommentsNot Currently0 (1 standard drink = 0.6 oz pure alcohol)Area Deprivation IndexAnswerDate Recorded National Score (1-100), lower number is lower riskNot on file09/01/2020State Score (1-10), lower number is lower riskNot on file09/01/2020Data from: https://www.neighborhoodatlas.medicine.[facility].edu/. Last address used for calculationNot on file09/01/2020CommentsNoSex and Gender Information ValueDate RecordedSex Assigned at BirthNot on fileLegal OouYnshki73/02/2012 8:22 AM ESTGender IdentityNot on fileSexual OrientationNot on filedocumented as of this encounter Plan of Treatment Not on file documented as of this encounter Visit Diagnoses Not on filedocumented in this encounter Care Teams Team MemberRelationshipSpecialtyStart DateEnd Date Juvenal Azevedo DPM PCP - General06/17/09 Eric Darby Gastroenterology05/21/19 Suzi Longoria, [place] [address] [place] [address] ReferringPain Lhszigrtak91/14/25documented as of this encounter
--- OUTSIDE RECORDS SUMMARY | 2025-08-19 09:09 | XMS_ITS | Clinical Summary ---
Author Organization [facility] Address [address] [place], [place] [id number] Care Team Providers Care Processing Associate Name Role Phone Juvenal Azevedo DPZarina Primary Care Provider Eric Darby Unavailable Unavailable Suzi Longoria CNP Unavailable Allergies Active AllergyReactionsCriticalityNoted YrwkZyxrlogbQdvpdkgtpwvKyjm86/02/2009 Medications MedicationSigDispense QuantityRefillsLast FilledStart DateEnd DateStatus FLUTICASONE-SALMETEROL 250 MCG-50 MCG/DOSE DISK DEVICE FOR INHALATION Take one(1) tablet two(2) times daily.ctive cyanocobalamin(B-12 DOTS 500 MCG TAB) Take one(1) tablet daily.ctive GLIPIZIDE 5 MG TAB Take one(1) tablet three times daily.ctive tramadol hcl(ULTRAM 50 MG TAB) Take one (1) or two(2) tablets every six(6) hours as needed for pain. Active UXSXPGZ-PWNSCQLVOD-NEECFLATNHESW-CAFFEINE 30 MG-50 MG-325 MG-40 MG CAP as necessary for kttl538ctive ropinirole hcl(REQUIP 0.25 MG TAB) Take one(1) tablet daily.ctive pregabalin(LYRICA 75 MG CAP) Take one(1) tablet two(2) times daily.ctive bupropion hcl(BUDEPRION SR 150 MG TAB) Take one(1) tablet two(2) in fxwiltk760ctive fluoxetine hcl(PROZAC 20 MG CAP) take 4 njnij877ctive insulin glargine,hum.rec.anlog(LANTUS SOLOSTAR 300 UNIT/3 ML SUB-Q INSULIN PEN) 30ml twice jwvci155ctive losartan/hydrochlorothiazide(HYZAAR 100 MG-25 MG TAB) Take one(1) tablet daily.ctive levothyroxine sodium(SYNTHROID 50 MCG TAB) Take one(1) tablet daily.ctive naproxen sodium(ALEVE 220 MG TAB) Take one(1) tablet daily.ctive ALBUTEROL 90 MCG/ACTUATION AEROSOL INHALER as necessary for craf289ctive lidocaine(LIDODERM 5 % (700 MG/PATCH) ADHESIVE PATCH) as btpkjtbba850/30/2009ctive diclofenac sodium(VOLTAREN 1 % TOPICAL GEL) four times efeck474ctive gabapentin(NEURONTIN 300 MG CAP) Take 2 at bedtime, one at Am and one at afternoon 120 ctive aspirin-calcium carbonate 81 mg-300 mg calcium(777 mg) tab Take 81 mg by mouth.Active atorvastatin (LIPITOR) 80 mg tablet take 1 tablet by mouth at vyfihza1708/24/2018Active clotrimazole-betamethasone (LOTRISONE) cream APPLY TWICE A DAY [...] tablet Take 10 mg by mouth.04/04/2019Active Insulin [place], Disposable, (INSUPEN) 30 gauge x 02/08 ndle 1 Each.02/28/2019Active MEDICATION, NON-DATABASE Apply to [...] Problems ProblemNoted DateDiagnosed DateGastroparesis due to secondary /03/2020 Encounters DateTypeDepartmentCare PxjeZuibdprgndy26/20/2025 Patient Msg Referring Physician [address] [place] [phone] Provider, Ccf Zsymhhza12/14/2025Transcribe Orders Referring Physician [address] [place] [phone] Suzi Longoria, [place] Fibromyalgia (Primary Dx)from Last 3 Months Social History Tobacco UseTypesPacks/DayYears UsedDateSmoking Tobacco: Every ZkaDwuzwvmqli044 Smokeless Tobacco: NeverAlcohol UseStandard Drinks/WeekCommentsNot Currently0 (1 standard drink = 0.6 oz pure alcohol)Area Deprivation IndexAnswerDate Recorded National Score (1-100), lower number is lower riskNot on file09/01/2020State Score (1-10), lower number is lower riskNot on file09/01/2020Data from: https://www.neighborhoodatlas.medicine.[facility].edu/. Last address used for calculationNot on file09/01/2020CommentsNoSex and Gender Information ValueDate RecordedSex Assigned at BirthNot on fileLegal GjlYjhoha82/02/2012 8:22 AM ESTGender IdentityNot on fileSexual OrientationNot on file Last Filed Vital Signs Vital SignReadingTime TakenCommentsBlood Svxptaqr963/7803 10:59 AM EDT Ykosa0759 10:59 AM NYTMndfmqzywbc04.8 ??C (98.2 ??F)12/07/2019 10:59 AM EDTRespiratory Rate--Oxygen Vlpmoezrff73%12/07/2019 10:59 AM EDTInhaled Oxygen Concentration--Pozfxp08.9 kg (169 lb 8 oz)12/07/2019 10:59 AM HDIIomzed171.6 cm (5' 6 )12/07/2019 10:59 AM EDTBody Mass Index27.36012/07/2019 10:59 AM EDT Plan of Treatment Health MaintenanceDue DateLast DoneCommentsAnxiety Xcwnfuutq48/05/1991Depression Miogfyfbl04/05/1991HIV Vyvzqhtzp93/05/1991Hepatitis C Rxbjfghuv33/05/1991 DTaP,Tdap,Td Vaccine (1 - Tdap)02/29/1992Hepatitis B Vaccine (1 of 3 - 19+ 3- dose series)02/29/1992Cervical Cancer Xywaacryj38/05/1994Mammogram Screening 2013CT Chftvqpynfad71/05/2018Cologuard (FIT-DNA)2018Colonoscopy 2018Colorectal Cancer Ttilrjgea31/05/2018Fecal Occult Blood2018 Mofcftewdvscu28/05/2018Diabetes Qmosugcha57, 07/20/2019, 07/20/2019, Additional history existsPneumococcal Vaccine: 50+ (2 of 2 - PCV) Shingrix Vaccine (1 of 2)2023Lipid Bbsowxjbd46/09/2024 06/04/2019, 08/21/2018Covid-19 Vaccine (1 - season)2025Influenza Vaccine (#1), 08/24/2018, 07/09/2015, Additional history exists Insurance Care Teams Team MemberRelationshipSpecialtyStart DateEnd Date Juvenal Azevedo DPM PCP - General06/17/09 Eric Darby Gastroenterology05/21/19 Suzi Longoria, [place] [address] [place] [address] ReferringPain Hremdhimhl13/14/25
--- OUTSIDE RECORDS SUMMARY | 2025-08-19 09:09 | XMS_ITS | Encounter Summary ---
Author Organization [facility] Address [address], [address] [place] [address] Care Team Providers Care Wing Scorer Name Role Phone Ryder Lemos APRN, CNP Primary Care Provider Reason for Referral * Outpatient Service (Routine) - Pending ReviewSpecialtyDiagnoses / Procedures Referred By ContactReferred To ContactCardiology Diagnoses Pre-op testing Procedures EKG 12 lead Ryder Lemos APRN - CNP [address] [place] [address] Phone: tel: fax: Referral IDStatusReasonStart DateExpiration DateVisits RequestedVisits [id number] [id number]/ Encounter Details DateTypeDepartmentCare Team (Latest Contact Info)Ohcrlkflkel50/11/2025Orders Only [facility] [address] [place] [phone] Ryder Lemos APRN - CNP [address] [phone] Pre-op testing (Primary Dx) Social History Tobacco UseTypesPacks/DayYears UsedDateSmoking Tobacco: Every ZvkXfqdvfdlpu037 Smokeless Tobacco: NeverAlcohol UseStandard Drinks/WeekCommentsNever0 (1 standard [...] like food, housing, medical care, and heating?Patient trnsngei87/22/2024HQ-2AnswerDate RecordedPHQ-9 Total Goprr816PRAPARE - TransportationAnswerDate RecordedIn the past 12 months, [...] steady place to sleep or slept in [facility] (including now)?Patient yueanzin29/03/2024 Housing Stability Vital SignAnswerDate RecordedIn the last 12 months, was there a time when you were not able to pay the mortgage or rent on time?No05/30/2025In the past 12 months, how many times have you moved where you were living?0 05/30/2025t any time in the past 12 months, were you homeless or living in a skilled nursing (including now)?No05/30/2025UDIT-CAnswerDate RecordedQ1: How often do you [...] Domain Source: IP Abuse ScreeningAnswerDate Recorded Physical azpuuGiowdo43/28/2025Verbal pcfohEjjjci43/28/2025Emotional abuseDenies 07/23/2025Financial ctscyNuojvp63/28/2025Sexual nrynjXkatzq92/28/2025 CommentsNoSex and Gender InformationValueDate RecordedSex Assigned at Yffyar3101/01/2025 10:17 AM EDTLegal IeoDqaods84/10/2013 1:17 PM ESTGender IgpvouruYqaqad18/08/2025 10:17 AM EDTSexual OrientationNot on filedocumented as of this encounter Plan of Treatment DateTypeDepartmentCare Team (Latest Contact Info)Iaotniyxizi21/25/2025 2:00 PM ESTAppointment [facility] [address] [place] [address] Dixon.09/09/2025 3:40 PM ESTOffice Visit [facility] [address] [place] [address] Ryder Lemos, OVERHEAD CLE[employer]ER - [employer] [address] [place] [facility] [place] [address] Pre-Op Clearance 10/04/25 @ [facility] (Form on file)Labs/EKG/CXR to be completed 1 wk prior10/08/2025 1:20 PM ESTOffice Visit [facility] Part of [address] [place] [phone] Nathan Ardon MD [address] [place] [address] [place] [phone] 3 month follow up10/10/2025 4:00 PM ESTAppointment [facility] [address] [facility], [place] [phone] epic/pt10/24/2025 1:00 PM ESTOffice Visit [facility] [address] [place] [phone] Preethi Tidwell, OVERHEAD CLEANER - [employer]ER [address] [place] [address] [address] [place] [address] 3M KUBNameTypePriorityAssociated DiagnosesOrder ScheduleEKG 12 leadECGRoutine Pre-op testing Expected: 08/06/2025 (Approximate), Expires: 10/05/2025XR CHEST STANDARD (2 VW) ImagingRoutine Pre-op testing Expected: 08/06/2025, Expires: 08/06/2026BC with Auto DifferentialLabRoutine Pre-op testing Expected: 08/06/2025 (Approximate), Expires: 08/06/2026asic Metabolic PanelLab Routine Pre-op testing Expected: 08/06/2025 (Approximate), Expires: 08/06/2026documented as of this encounter Visit Diagnoses Diagnosis Pre-op testing- Primary Preoperative examination, unspecified documented in this encounter Care Teams Team MemberRelationshipSpecialtyStart DateEnd Date Might, Ryder Combs, OVERHEAD CLE[employer]ER - [employer]ER PCP - GeneralFamily Nurse Practitioner05/10/18documented as of this encounter
--- OUTSIDE RECORDS SUMMARY | 2025-08-19 09:17 | XMS_ITS | CCD ---
Author Organization [facility] Care Team Providers Care Row Boss Name Role Phone Might, Vivian Combs Primary Care Provider [phone] MIGHT, VIVIAN W Primary Care Unavailable CLAUDIA WILLETT Referring Unavailable Might WILDLIFE 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 PICKING CREW, Vivian W Primary Care Provider Might WILDLIFE 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 PICKING CREW, Vivian W Primary Care Provider Might WILDLIFE 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 PICKING CREW, Vivian W Primary Care Provider Might WILDLIFE 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 PICKING CREW, Vivian W Primary Care Provider Might WILDLIFE 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 PICKING CREW, Vivian W Primary Care Provider Might WILDLIFE 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 PICKING CREW, Vivian W Primary Care Provider NON STAFF [...] Grider Consulting Unavailable VANESSA FROST Consulting Unavailable JOJO, DR GAFFNEY Primary Care Unavailable YUMIKO ., [...] vailable MISC, DR GAFFNEY Primary Care Unavailable RICHMOND, DR PHILLIP Reilly Consulting Unavailable LAKSHMIPATHY ., [...] Consulting Unavailable THORPEVERN LEDESMA Consulting Unavailable Might WILDLIFE 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 PICKING CREW, Vivian W Primary Care Provider Might WILDLIFE 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 PICKING CREW, Vivian W Primary Care Provider MIGHT, VIVIAN [...] MIGHT, VIVIAN W Primary Care Unavailable Chiquis WILDLIFE BIOLOGY TECHNICIAN-SUPERVISOR PICKING CREW, Rolan Grier Attending Unavailab le Might [facility], [facility] Care Un available Might WILDLIFE BIOLOGY TECHNICIAN-[facility], [place], [facility] Care Un available [place] WILDLIFE BIOLOGY TECHNICIAN-SUPERVISOR PICKING CREW, Rolan Grier Attending Unavailab le Might WILDLIFE BIOLOGY TECHNICIAN-[facility], [place], [facility] Care Un available [place] WILDLIFE BIOLOGY TECHNICIAN-SUPERVISOR PICKING CREW, Rolan D Attending Unavailab le Jez MULLEN, Alexander Lemus Attending Unavailable Might W[facility]DLIFE BIOLOGY TECHNICIANSA[facility], [facility] Un available Mascaro PA-CKarri Attending Unavail able Might WILDLIFE BIOLOGY TECHNICIANSA[facility], [facility] Care Un available Might [facility]DLIFE [facility] TECHN[facility]SA[facility], [facility] Un available Brock Gaitan MD Attending Unavaila ble Might WILDLIFE BIOLOGY TECHNICIANSA[facility], [facility] Un available Mascaro PA-C, Karri Goldberg Attending Unavail able Might [facility]DLIFE BI[facility] TECHNICIANSA[facility], [facility] Care Un available Mascaro PA-CKarri Attending Unavail able Mascaro PA-C, Karri Goldberg Attending Unavail able Might [facility] TECHN[facility]SA[facility], [facility] Care Un available [place] WILDLIFE BIOLOGY TECHNICIAN-SUPERVISOR PICKING CREW, Rolan Grier Attending Unavailab le Might WILDLIFE BIOLOGY TECHNICIANVASSAR [facility], [facility] Un available Allergies Allergy ClassificationReported Allergen(s)Allergy TypeDate of OnsetReaction(s) FacilityPenicillins (antibiotic) (10 sources)PenicillinsDrug Ozcxmna40-54-5588FdzxAazgo Health (20 sources)PenicillinsPropensity to adverse reactions to wduz59-08-9922WinsSaint [place]ville, [place] (20 sources)PenicillinsPropensity to adverse reactions to xrrx29-43-4457UkalCMORiverside [facility] (1 source)PenicillinsDrug allergy (disorder)53-84-2610PhvpvngikPromedica [facility] (3 sources)penicillAMINEDrug Pqlfmvw67-99-6488KefpeivCvxkranqnOhio Valley Hospital (1 source)PenicillinsDrug allergy (disorder)40-91-8443Vlw [facility] (1 source)Penicillin; Translations: [penicillin]Drug AllergyWilson Street Hospital Rep[facility] Medications Current Medications MedicationDrug Class(es)DatesSig (Normalized)Sig (Original)acetaminophen 500 mg oral tablet (20 sources)Start: 40-97-5709pace 4000 mg by mouth every twenty-four hours1,000 mg, Oral, ONCE, 1 dose, On Tue07/23/25 at 0700, Maximum dose of acetaminophen is 4000 mg from all sources in 24 hours., Pre-op (day of surgery)Start: 98-27-5772qbqupswvsvjjn (TYLENOL) tablet 650 mgStart: 27-93-0361qmdwzcecgpopy (TYLENOL) tablet 650 mgStart: ,000 mg, Oral, ONCE, 1 dose, On Tue09/14/24 at 0630, Administer 60 minutes prior to surgery., Pre-op (day of surgery)Start: 07-26-2024 End: 30-11-3411zzta 1 tablet by mouth three times dailyacetaminophen [...] prior to surgery., Pre-op (day of surgery)Start: 31-60-7185dbylymqmadran (TYLENOL) tablet 650 mg End: 54-60-0058pzdn 1 tablet by mouth every six hours as needed for pain acetaminophen (TYLENOL) 500 MG tablet Take 1 tablet by mouth every 6 hours as needed for Pain 07/26/2024 Discontinued (Stop Taking at Discharge)acetaminophen 325 mg / HYDROcodone bitartrate 5 mg oral tablet (20 sources)Opioid AgonistStart: 09-14-2024 End: 15-15-3882ZKXAHorqeik-acetaminophen (NORCO) 5-325 MG per tablet Indications: Post-op pain Take 1 tablet by mouth every 6 hours as needed for Pain for up to 7 days. Intended supply: 5 days. Take lowest dose possible to manage pain Max Daily Amount: 4 tablets 28 tablet 09/14/2024 09/21/2024 Active Start: 07-18-2024 End: 41-20-4129DPQCOkpohgm-acetaminophen (NORCO) 5-325 MG per tablet Indications: Closed dislocation of tarsal joint of left foot, initial encounter , Charcot ankle, left Take 1 tablet by mouth every 4 hours as needed for Pain for up to 5 days. Intended supply: 5 days. Take lowest dose possible to manage pain MaxDaily Amount: 6 tablets 30 tablet 07/18/2024 07/26/2024 Discontinued (Stop Taking at Discharge)Start: 08-06-2022 End: 57-98-8888DMDRBrtaira-acetaminophen (NORCO) 5-325 MG per tablet 1 tablet Start: 04-23-2022 End: 07-50-6490ymaw 1 tablet by mouth twice daily as needed for painHydrocodone- Acetaminophen 5-325 mg tablet Discontinued 1 TAB PO Twice daily as needed for Pain September 21, 2022 1:00am June 24, 2025 12:22pmHYDROcodone- Acetaminophen 5-325 MG Oral for 30 Days Activeacetaminophen 325 mg / oxyCODONE hydrochloride 5 mg oral tablet (2 sources)Opioid AgonistStart: 07-26-2024 End: 27-94-4055iatNNVSLO-acetaminophen (PERCOCET) 5-325 MG per tablet Indications: Post-op pain Take 1 tablet by mouth in the morning and at bedtime for 8 days. Intended supply: 5 days. Take lowest dose possible tomanage pain Max Daily Amount: 2 tablets 16 tablet 07/26/2024 08/03/2024 ActiveStart: 07-24-2024 oxyCODONE-acetaminophen (PERCOCET) 5-325 MG per tablet 1 [id number] 200 actuat albuterol 0.09 mg/actuat metered dose inhaler (20 sources)beta2-Adrenergic AgonistStart: 63-76-7589Nbxys: 07-25-2024 End: 86-94-7517zmwi 2 puff(s) by mouth four times daily as needed for wheezing albuterol sulfate HFA (PROVENTIL;VENTOLIN;PROAIR) 108 (90 Base) MCG/ACT inhaler Indications: Acute bronchitis, unspecified organism INHALE 2 PUFFS BY MOUTH INTO THE LUNGS 4 TIMES DAILY NEEDED FOR WHEEZING 9 g 2 07/25/2024 04/11/2025 Discontinued (LIST CLEANUP)Start: 54-72-7383Tgpzj: 05-09-2024 End: 01-46-5824umuo 2 puff(s) by mouth four times daily for wheezingalbuterol sulfate HFA (PROVENTIL;VENTOLIN;PROAIR) 108 (90 Base) MCG/ACT inhaler Indications: Acute bronchitis, unspecified organism inhale 2 puffs by mouth and INTO THE LUNGS four times a day if needed for wheezing 8.5 g 2 05/09/2024 07/25/2024 DiscontinuedStart: 74-93-6296uyvi 2 puff(s) by mouth four times daily for wheezingalbuterol sulfate HFA (PROVENTIL;VENTOLIN;PROAIR) 108 (90 Base) MCG/ACT inhaler Indications: Acute bronchitis, unspecified organism inhale 2 puffs by mouth and INTO THE LUNGS four times a day if needed for wheezing 8.5 g 2 08/24/2023 ActiveStart: 02-13-7740kwekwkbag (PROVENTIL) (2.5 MG/3ML) 0.083% nebulizer solution 2.5 mgStart: 06-11-2023 End: .5 mg, Nebulization, EVERY 2 HOURS PRN, Starting on 06/11/23 at 0043, Until 06/11/23 at 0345, Wheezing Initiate RT Bronchodilator Protocol: YesStart: 14-58-9468oppy 2 puff(s) by mouth four times daily for wheezingalbuterol sulfate HFA (PROVENTIL;VENTOLIN;PROAIR) 108 (90 Base) MCG/ACT inhaler Indications: Acute bronchitis, unspecified organism inhale 2 puffs by mouth and INTO THE LUNGS four times a day if needed for wheezing 8.5 g 2 03/25/2023 ActiveStart: 09-21-2022 End: 69-46-2521gyyj 1 puff(s) by inhalation four times daily as needed for wheezingAlbuterol Sulfate 90 mcg/actuation HFA aerosol inhaler Discontinued 2 PUFF INHALATION Four times daily as needed for Shortness Of Breath Or Wheezing September 21, 2022 1:00am June 24, 2025 12:16pmStart: 61-84-4159ppjd 2 puff(s) by mouth four times daily [...] for Wheezing 1 each 1 08/03/2021 ActiveStart: 92-53-6886fbjf 2 puff(s) by inhalation four times daily as needed for wheezingalbuterol sulfate HFA (VENTOLIN HFA) 108 (90 Base) MCG/ACT inhaler Indications: Acute bronchitis, un specified organism Inhale 2 puffs into the lungs 4 times daily as needed for Wheezing 1 Inhaler 0 04/28/2020 ActiveStart: 64-60-6552nfww 2 puff(s) by inhalation four times daily [...] mg/ml inhalation solution (3 sources)Anticholinergic, beta2-Adrenergic AgonistStart: 88-69-2715clbrnxjtekm 0.5 mg-albuterol 2.5 mg (DUONEB) nebulizer solution 1 DoseStart: 06-11-2023 End: 03-76-2089chkawvbduke 0.5 mg-albuterol 2.5 mg (DUONEB) nebulizer solution 1 Dosealendronic acid 70 mg oral tablet (20 sources)BisphosphonateStart: 22-18-5217jixmglfxzrq (FOSAMAX) 70 MG tablet Indications: Other osteoporosis [...] chloride 200 mg/ml topical solution (13 sources)Start: 26-98-1039tmgcwjeo chloride (DRYSOL) 20 % external solution Indications: Gustatory sweating Apply topically nightly. 60 mL 2 09/28/2023 Activeaspirin 81 mg delayed release oral tablet (20 sources)Platelet Aggregation Inhibitor, Nonsteroidal Anti-inflammatory Drug Start: 51-64-0497hmxe 1 tablet by mouth once dailyaspirin 81 MG EC tablet Take 1 tablet by mouth daily 30 tablet 3 06/01/2025 ActiveStart: 97-77-0486daqm 1 tablet by mouth once dailyaspirin 81 MG EC tablet Take 1 tablet by mouth daily 30 tablet 3 06/01/2025 ActiveStart: 34-22-5233lddc 81 mg by mouth once daily81 mg, Oral, DAILY, First dose on Tue05/31/25 at 0900, Until Discontinued, Do not crush or break.Start: 87-28-6935ofyj 81 mg by mouth once daily81 mg, Oral, DAILY, First dose on 09/15/24 at 1100, Until DiscontinuedStart: 09-14-2024 End: 50-80-3064fwvh 325 mg by mouth once hzdid856 mg, Oral, DAILY, First dose on Olena 05/30/25 at 1500, Until Discontinued, Do not crush or break.Start: 07-24-2024 take 81 mg by mouth once daily81 mg, Oral, DAILY, First dose (after last modification) on Tue07/24/24 at 1200, Until DiscontinuedStart: 10-64-5112vlti 81 mg by mouth once daily81 mg, Oral, DAILY, First dose on 06/11/23 at 0900, Until Discontinuedtake 1 tablet by mouth once dailyaspirin 81 MG tablet Take 1 tablet by mouth daily Activeatorvastatin 80 mg oral tablet (20 sources)HMG-CoA Reductase InhibitorStart: 68-38-8388Wrjsgoegnbzu 80 mg tablet Active 40 MG PO Daily at bedtime June 24, 2025 12:17pm Complies with drug therapyStart: 34-40-0861ohgu 1 tablet by mouth once dailyatorvastatin (LIPITOR) 40 MG tablet Take 1 tablet by mouth daily 90 tablet 3 05/28/2025 ActiveStart: 05-16-2024 End: 79-92-0312faew 1 tablet by mouth once dailyatorvastatin (LIPITOR) 40 MG tablet Take 1 tablet by mouth daily 90 tablet 3 05/23/2025 ActiveStart: 73-64-3904bbyd 80 mg by mouth once daily80 mg, Oral, NIGHTLY, First dose on 06/11/23 at 0100, Until DiscontinuedStart: 08-24-2018 End: 40-24-0142iyex 1 tablet by mouth once dailyatorvastatin (LIPITOR) 80 MG tablet Take 1 tablet by mouth daily 09/11/2024 Activeazelastine hydrochloride 0.137 mg/actuat metered dose nasal spray (6 sources)Histamine-1 Receptor AntagonistStart: 84-45-2875Bwyvxswkzb 137 mcg (0.1 %) spray,non-aerosol Active INTRANASAL June 24, 2025 12:00am Complies with drug therapyazelastine (ASTELIN) 0.1 % nasal spray 1 spray by Nasal route in the morning and at bedtime Activebetamethasone 0.0005 mg/mg topical ointment (20 sources)CorticosteroidStart: 03-24-2022 End: 40-89-4123lxdnradfpsjur dipropionate (DIPROLENE) 0.05 % ointment Indications: Ear itching Apply topically daily. 15 g 0 03/24/2022 06/14/2023 Discontinued (Stop Taking at Discharge)Betamethasone Dipropionate 0.05 % External for 10 Days Activebetamethasone 0.5 mg/ml / clotrimazole 10 mg/ml topical cream (20 sources)Azole Antifungal, CorticosteroidStart: 31-68-8968srzschppwaow- betamethasone (LOTRISONE) 1-0.05 % cream Indications: Vaginal yeast infection APPLY TWICE A DAY NEEDED FOR VULVAR ITCHING NOT TO EXCEED 6 WEEKS CONTINUOUS USAGE 15 g 3 09/21/2018 Activecalcium chloride 0.0014 meq/ml / potassium chloride 0.004 meq/ml / sodium chloride 0.103 meq/ml / sodium lactate 0.028 meq/ml injectable solution (2 sources)Start: 72-07-8270JziqnZQQktf, at 100 mL/hr, CONTINUOUS, Starting on Tue07/23/25 at 0700, Pre-op (day of surgery)Start: 03-62-1864pcqymslr ringers IV soln infusionceFAZolin (ANCEF) 2000 mg in 20 mL IV syringe (2 sources)Start: ,000 mg, IntraVENous, EVERY 8 HOURS, First dose on Tue09/14/24 at 1600, Administer over 5 mins.Start: ,000 mg, IntraVENous, EVERY 8 HOURS, First dose on Tue07/24/24 at 0000, Administer over 5 mins.cefdinir 300 mg oral capsule (1 source)Cephalosporin AntibacterialStart: 05-17-2024 End: 18-48-2313xlxf 1 capsule by mouth twice dailycefdinir (OMNICEF) [...] duration of therapy: 5 daysStart: 06-10-2023 End: 32-93-4266pgzHSDMBqpa (ROCEPHIN) 1,000 mg in sodium chloride 0.9 % 50 mL IVPB (mini-bag)celecoxib 100 mg oral capsule (11 sources)Nonsteroidal Anti-inflammatory DrugStart: 80-27-1637pdgc 1 capsule by mouth twice dailycelecoxib (CELEBREX) 100 MG capsule Take 1 capsule by mouth 2 times daily 180 capsule 1 03/18/2021 ActiveStart: 49-16-4996svrx 1 capsule by mouth twice dailycelecoxib (CELEBREX) 100 MG capsule Indications: Multiple joint pain Take 1 capsule by mouth 2 times daily 180 capsule 1 09/16/2020 Active cetirizine hydrochloride 10 mg oral tablet (19 sources)Histamine-1 Receptor AntagonistStart: 25-06-6688gpgf 1 tablet by mouth once dailycetirizine (ZYRTEC) 10 MG tablet Take 1 tablet by mouth once daily 90 tablet 3 07/28/2025 ActiveStart: 06-12-2025 End: 22-27-4330ryfl 1 tablet by mouth once dailycetirizine (ZYRTEC) 10 MG tablet Take 1 tablet by mouth daily 90 tablet 3 06/12/2025 ActiveStart: 91-63-799632 mg, Oral, DAILY, First dose on Tue05/30/25 at 0900, Until Discontinued, Substituted for Fexofenadine (JODIE).Start: 01-02-9269gqyj 10 mg by mouth once daily10 mg, Oral, DAILY, First dose on Tue09/15/24 at 0900, Until Discontinued, Substituted for Levocetirizine (XYZAL).Start: 94-23-8364ytxf 10 mg by mouth once daily10 mg, Oral, NIGHTLY, First dose (after last modification) on Tue07/24/24 at 2100, Until Discontinued, Substituted for Levocetirizine (XYZAL).Start: 07-95-9243esqsagixug (ZYRTEC) tablet 10 mgcholecalciferol 0.025 mg oral tablet (1 source)Vitamin DStart: 09-14-2024 End: 45,000 Units, Oral, DAILY, 7 doses, First dose on Tue09/14/24 at 1400, Last dose on Olena 09/20/24 [id number], Labeling may look different. 25 eqo=0816 Units. Please double check dosages.ciprofloxacin 3 mg/ml / dexamethasone 1 mg/ml otic suspension (3 sources)Corticosteroid, Quinolone AntimicrobialStart: 01-17-2025 End: 18-86-7829lsbvfdbwcohpn-dexAMETHasone (CIPRODEX) 0.3-0.1 % otic suspension Indications: Acute diffuse otitis externa of both ears Place 4 drops into both ears 2 times daily for 10 days 7.5 mL 01/17/2025 01/27/2025 Activecodeine phosphate 2 mg/ml / guaiFENesin 20 mg/ml oral solution (3 sources)Opioid AgonistStart: 34-83-4982aajcJXUyjhr-codeine (GUAIFENESIN AC) 100-10 MG/5ML liquid 5 mLStart: 54-68-6991kqdk 10 mL by mouth every four hours before mealtime for coughguaiFENesin-codeine (GUAIFENESIN AC) 100-10 MG/5ML liquid take 10 milliliters by mouth every 4 hours if needed for cough fo... (REFER TO PRESCRIPTION NOTES). 0 05/31/2023 ActiveContinuous Blood Gluc Sensor (FREESTYLE AUTUMN 14 DAY SENSOR) MISC (20 sources)Start: 47-91-1562Hbbywdoeob Blood Gluc Sensor (FREESTYLE AUTUMN 14 DAY SENSOR) MISC 01/28/2021 SuspendedStart: 13-77-7146Mcrrgavofq Blood Gluc Sensor (FREESTYLE AUTUMN 14 DAY SENSOR) MISC 01/28/2021 ActiveStart: 01-28-2021 Continuous Blood Gluc Sensor (FREESTYLE AUTUMN 14 DAY SENSOR) MISCStart: 83-64-2358Ghtxfoqrsb Blood Gluc Sensor (FREESTYLE AUTUMN 14 DAY [...] release oral tablet (20 sources)Nonsteroidal Anti-inflammatory DrugStart: 54-84-9735vmbcscisvw (VOLTAREN) 75 MG EC tablet 06/18/2021 Activedicyclomine hydrochloride 20 mg oral tablet (17 sources)AnticholinergicStart: 22-99-5588hbzd 1 tablet by mouth three times dailydicyclomine (BENTYL) 20 MG tablet Indications: Irritable bowel syndrome with diarrhea Take 1 tabletby mouth three times daily 270 tablet 0 09/10/2019 ActiveStart: 28-97-6190dolg 1 tablet by mouth three times dailydicyclomine (BENTYL) 20 MG tablet Indications: Irritable bowel syndrome with diarrhea Take 1 tabletby mouth three times daily 270 tablet 0 03/23/2019 Activedoxycycline hyclate 100 mg oral tablet (20 sources)Tetracycline-class DrugStart: 11-28-2024 End: 08-48-4893ffkk 1 tablet by mouth twice dailydoxycycline hyclate (VIBRA- TABS) 100 MG tablet Indications: Acute recurrent pansinusitis Take 1 tablet by mouth 2 times daily for 10 days 20 tablet 11/28/2024 12/08/2024 ActiveStart: 09-15-2024 End: 84-72-2882owse 1 tablet by mouth twice dailydoxycycline hyclate (VIBRA- TABS) 100 MG tablet Take 1 tablet by mouth 2 times daily for 7 days 14 tablet 09/15/2024 09/22/2024 ActiveStart: 07-26-2024 End: 13-45-9449sfjr 1 tablet by mouth once dailydoxycycline hyclate (VIBRA-TABS) 100 MG tablet Take 1 tablet by mouth daily for 10 days 10 tablet 07/26/2024 08/05/2024 ActiveStart: 09-23-2022 End: 89-52-5114oirq 1 tablet by mouth twice dailydoxycycline hyclate (VIBRA- TABS) 100 MG tablet Indications: Acute non-recurrent pansinusitis Take 1tablet by mouth 2 times daily for 10 days 20 tablet 0 09/23/2022 10/03/2022 Active Start: 76-85-7270wdkr 1 tablet by mouth twice dailydoxycycline hyclate (VIBRA- TABS) 100 MG tablet Take 1 tablet by mouth 2 times daily 20 tablet 0 06/09/2022 ActiveStart: 10-17-2019 End: 09-39-3066lwnm 1 tablet by mouth twice dailydoxycycline hyclate [...] capsule (20 sources)Serotonin and Norepinephrine Reuptake InhibitorStart: 85-58-1876skdo 1 capsule by mouth once dailyDULoxetine (CYMBALTA) 60 MG extended release capsule Take 1 capsule by mouth nightly 01/29/2021 ActiveStart: 34-96-5236hllu 1 capsule by mouth once daily in the eveningDULoxetine (CYMBALTA) 30 MG extended release capsule take 1 capsule by mouth every evening 0 07/02/2020 Active empagliflozin 10 mg oral tablet (20 sources)Sodium-Glucose Cotransporter 2 InhibitorStart: 13-96-0208LWCPEGDBJ 10 MG tablet 06/12/2024 ActiveStart: 76-65-8738jsko 10 mg by mouth three times daily10 mg, Oral, DAILY, First dose on 06/11/23 at 0900, Until Discontinued Indication of Use: Heart Failure (preserved EF) Note: Discontinuation of SGLT2 inhibitor therapy 3 days prior to surgery or major procedures is recommended given the risk for euglycemic diabetic ketoacidosis.Start: 54-58-8962WGPDCLPOH 10 MG tablet 1 tablet daily 06/12/2024 Activeerythromycin 0.005 mg/mg ophthalmic ointment (7 sources)Macrolide, Macrolide AntimicrobialStart: 81-84-5318czqzy 3.5 g into the eye(s) every six hourserythromycin (ROMYCIN) 5 MG/GM ophthalmic ointment Indications: Acute bacterial conjunctivitis of right eye Place into the right eye every 6 hours 3.5 g 0 09/23/2022 Activeestradiol 1 mg oral tablet (13 sources)EstrogenStart: 93-79-9917azwo 1 tablet by mouth once dailyestradiol (ESTRACE) 1 MG tablet Take 1 tablet by mouth daily 30 tablet 3 12/06/2023 Active fenofibrate 145 mg oral tablet (20 sources)Peroxisome Proliferator Receptor alpha AgonistStart: 15-42-9215703 mg, Oral, DAILY, First dose on Tue09/15/24 at 1100, Until Discontinued, Substituted for Fenofibrate (Non-Formulary Dose).Start: 90-01-0132277 mg, Oral, Nightly, First dose (after last modification) on Tue07/24/24 at 2100, Until Discontinued, Substituted for Fenofibrate (Non-Formulary Dose).Start: 08-23-2023 End: 64-43-6165neuf 1 tablet by mouth once dailyfenofibrate (TRICOR) 145 MG tablet Take 1 tablet by mouth daily 90 tablet 3 05/23/2025 ActiveStart: 88-54-1108iezgmayggsn (TRIGLIDE) tablet 160 mgStart: 02-23-2019 End: 31-09-802930 mg, Oral, DAILY, First dose on Tue05/30/25 at 2100, Until Discontinued, Substituted for Fenofibrate (Non-Formulary Dose).fexofenadine hydrochloride 180 mg oral tablet (20 sources)Histamine-1 Receptor AntagonistStart: 04-30-2025 End: 04-19-6707rlrt 1 tablet by mouth once daily in the morningfexofenadine (JODIE) 180 MG tablet Take 1 tablet by mouth every morning 04/30/2025 Active take 30 mg by mouth once dailyFEXOFENADINE HCL PO Take 30 mg by mouth daily Activefluocinonide 0.5 mg/ml topical cream (1 source)CorticosteroidStart: 15-77-4442mwlxavmdtbke (LIDEX) 0.05 % cream Indications: Rhus dermatitis Apply topically 2 times daily. 1 Tube 0 03/12/2020 ActiveFLUoxetine 40 mg oral capsule (18 sources)Serotonin Reuptake InhibitorStart: 70-57-7260idxe 1 capsule by mouth once dailyFLUoxetine (PROZAC) 40 MG capsule Take 1 capsule by mouth daily 90 capsule 1 10/31/2019 ActiveStart: 00-65-1658ayfp 1 capsule by mouth once daily FLUoxetine (PROZAC) 40 MG capsule take 1 capsule by mouth once daily 90 capsule 1 04/23/2019 Activefluticasone propionate 0.05 mg/actuat metered dose nasal spray (20 sources)CorticosteroidStart: 69-33-9739Hjnni: 90-28-8697byjd 2 spray(s) nasal route once dailyfluticasone (FLONASE) 50 MCG/ACT nasal spray Indications: Seasonal allergic rhinitis due to pollen Use 2 spray(s) in each nostril once daily 16 g 5 09/28/2024 ActiveStart: 79-69-3579cpvd 2 spray(s) nasal route once daily as needed2 spray, Each Nostril, NIGHTLY PRN, Starting on e 07/24/24 at 1145, Until Discontinued, RhinitisStart: 45-82-7326tbfr 2 spray(s) nasal route once dailyfluticasone (FLONASE) 50 MCG/ACT nasal spray Indications: Seasonal allergic rhinitis due to pollen instill 2 sprays into each nostril once daily 48 g 3 09/23/2023 ActiveStart: 36-84-3188rrpl 2 spray(s) nasal route once daily2 spray, Each Nostril, DAILY, First dose on 06/11/23 at 0900, Until DiscontinuedStart: 37-98-4934Semwmitweke Propionate 50 mcg/actuation spray,suspension Active 2 SPRAY INTRANASAL Daily September 21, 2022 1:00am Complies with drug therapyStart: 10-19-2291fsoi 2 spray(s) nasal route once dailyfluticasone (FLONASE) 50 MCG/ACT nasal spray Indications: Seasonal allergic rhinitis due to pollen 2 sprays by Each Nostril route daily 3 each 1 06/09/2022 ActiveStart: 79-13-4862cowg 2 spray(s) nasal route once dailyfluticasone (FLONASE) 50 MCG/ACT nasal spray Indications: Seasonal allergic rhinitis due to pollen 2 sprays by Each Nostril route daily 3 Bottle 1 06/24/2020 ActiveStart: 41-57-9375zigx 2 spray(s) nasal route once dailyfluticasone (FLONASE) 50 MCG/ACT nasal spray Indications: Ear fullness, bilateral 2 sprays by Each Nostril route daily 3 Bottle 1 07/26/2019 ActiveFluticasone Propionate 50 MCG/ACT Nasal for 30 Days ActiveFluticasone Propion-Salmeterol (20 sources)Corticosteroid, beta2-Adrenergic AgonistStart: 29-67-6181Appebmsizud Propion-Salmeterol (Advair Diskus) 100-50 mcg/dose blister with device Active 1 INH INHALATION Twice daily June 24, 2025 12:00am Complies with drug therapyStart: 45-14-9898murr 1 puff(s) by inhalation at bedtimefluticasone- salmeterol (ADVAIR) 500-50 MCG/ACT AEPB diskus inhaler Inhale 1 puff into the lungs in the morning and at bedtime 04/30/2025 Active End: 57-34-1906czja 1 puff(s) by inhalation in the morningfluticasone-salmeterol [...] 20 mg oral tablet (20 sources)Loop DiureticStart: 52-18-1186qgvv 1 tablet by mouth once daily furosemide (LASIX) 20 MG tablet Indications: History of syncope , Essential hypertension , Tobacco abuse , Mixed hyperlipidemia , SOB (shortness of breath) , Bilateral leg edema Take 1 tablet by mouth daily 90 tablet 3 05/28/2025 Active Start: 06-04-2024 End: 61-70-0801ujsp 1 tablet by mouth once dailyfurosemide (LASIX) 20 MG tablet Indications: History of syncope , Essential hypertension , Tobacco abuse , Mixed hyperlipidemia , SOB (shortness of breath) , Bilateral leg edema Take 1 tablet by mouth daily 90 tablet 3 05/23/2025 ActiveStart: 05-16-2023 End: 70-08-3329qbjp 1 tablet by mouth once dailyfurosemide (LASIX) 20 MG tablet Indications: History of syncope , Essential hypertension , Tobacco abuse , Mixed hyperlipidemia Take 1 tablet by mouth daily 90 tablet 3 05/16/2023 05/15/2024 ActiveStart: 09-21-2022 End: 47-38-2358Kjbnsitwdq 20 mg tablet Discontinued 20 MG PO Q48H September 21, 2022 1:00am June 24, 2025 12:19pmStart: 55-54-9729duzb 1 tablet by mouth once dailyfurosemide (LASIX) 20 MG tablet Indications: Lower leg edema take 1 tablet by mouth once daily 90 tablet 1 09/20/2022 ActiveStart: 86-10-2982ajrv 1 tablet by mouth once dailyfurosemide (LASIX) 20 MG tablet Indications: Lower leg edema Take 1 tablet by mouth daily 90 tablet1 03/24/2022 ActiveglipiZIDE er 10 mg 24 hr extended release oral tablet (20 sources)SulfonylureaStart: 21-01-3531wjzz 2 tablets by mouth once daily glipiZIDE (GLUCOTROL XL) 10 MG extended release tablet Indications: Diabetes mellitus type 2 with complications, uncontrolled (HCC) Take 2 tablets by mouth daily 180 tablet 1 12/31/2019 ActiveStart: 61-68-1627ajwu 2 tablets by mouth once dailyglipiZIDE (GLUCOTROL XL) 10 MG extended release tablet Indications: Diabetes mellitus type 2 with complications, uncontrolled (HCC) Take 2 tablets by mouth daily 180 tablet 0 09/10/2019 ActiveStart: 37-45-4432qsvt 2 tablets by mouth once dailyglipiZIDE (GLUCOTROL [...] for injection by adding 1 mL of supervisor fruit grading-supplied sterile diluent or sterile water for injection to a vial containing 1 mg of the drug, to provide solutions containing 1 mg/mL. Shake vial gently to dissolve. Start: 95-15-3208Eoxlw: 40-19-4275ieug 1 mL intravenously every hour1 mg, IntraMUSCular, PRN, Starting on 06/11/23 at 1616, Until Discontinued, Low blood sugar, Blood glucose less than 70 mg/dL and patient NOT ALERT or NPO and does not have IV access. After administration, attempt intravenous access and start D5W at 100 mL/hr. Repeat blood glucose in 15 minutes x2 and notify provider.Start: 99-85-0400sbbbbi 1 mg by subcutaneous injection every hour [...] x 2 and notify provider.Glucose (12 sources)Start: 20-34-8834OhogvLEEfof, at 100 mL/hr, CONTINUOUS PRN, if blood [...] after 60 minutes, discontinue dextrose 10% infusion.Start: 47-56-2442fkthvzsh bolus 10% 125 mLStart: 12-87-886208 g (4 tablet), Oral, PRN, Starting on [...] remains LESS THAN 70 mg/dL, notify provider.Start: 38-55-6450Njxqi: 67-15-3047vshqcuqq bolus 10% 125 mLStart: 80-56-2467Jowaq: 36-21-5570fbdmwzyn bolus 10% 125 mL Start: 49-13-835766 g (4 tablet), Oral, PRN, Starting on [...] glucose remains LESS THAN 70 mg/dL,notify provider.Start: 89-59-0976qqjv 1 mL intravenously every hourIntraVENous, at 100 [...] after 60 minutes, discontinue dextrose 10% infusion.Start: 77-96-2520hifbcbzl bolus 10% 125 mLStart: 72-58-235780 g (4 tablet), Oral, PRN, Starting on [...] release oral tablet (3 sources)Start: 06-11-2023 End: 32-69-1922oecs 1 tablet by mouth twice dailyguaiFENesin (MUCINEX) 600 MG extended release tablet Take 1 tablet by mouth 2 times daily for 7 days 14 tablet 0 06/14/2023 06/21/2023 ActiveHomeopathic Products (PROSACEA EX) (17 sources)Homeopathic Products (PROSACEA EX) Apply topically 0 Active hydrocortisone 10 mg/ml / neomycin 3.5 mg/ml / polymyxin b 21607 unt/ml otic solution (3 sources)Aminoglycoside Antibacterial, Polymyxin-class Antibacterial, CorticosteroidStart: 11-28-2024 End: 45-41-6054ptczhwxv-polymyxin-hydrocortisone (CORTISPORIN) 3.5-23276-[address] 4 drops into the left ear 3 times daily for 10 days 10 mL 11/28/2024 12/08/2024 ActivelevoFLOXacin 750 mg oral tablet (2 sources)Quinolone AntimicrobialStart: 06-14-2023 End: 34-34-8486cgvl 1 tablet by mouth once dailylevoFLOXacin (LEVAQUIN) 750 MG tablet Take 1 tablet by mouth daily for 7 days 7 tablet 0 / Activeloratadine 10 mg oral capsule (18 sources)take 1 capsule by mouth once dailyloratadine (CLARITIN) 10 MG capsule Take 10 mg by mouth daily 0 Hoedtc20 ml magnesium sulfate 40 mg/ml injection (2 [...] mg oral tablet (2 sources)AntiemeticStart: 07-13-2019 End: 50-55-9807pnax 1 tablet by mouth three times daily as needed for dizziness meclizine (ANTIVERT) 25 MG tablet Indications: Vertigo Take 1 tablet by mouth 3 times daily as needed for Dizziness 30 tablet 0 07/13/2019 07/23/2019 Active methocarbamol 500 mg oral tablet (20 sources)Muscle RelaxantStart: 05-30-2025 End: 63-14-2867ndyu 1 tablet by mouth three times dailymethocarbamol (ROBAXIN) 500 MG tablet Take 1 tablet by mouth 3 times daily 90 tablet 3 05/31/2025 Active Start: 52-64-9488ddbb 500 mg by mouth four times zgcwe745 mg, Oral, 4 TIMES DAILY, First dose on 09/15/24 at 1300, Until DiscontinuedmethylPREDNISolone 4 mg oral tablet (3 sources)CorticosteroidStart: 93-01-0486tkahlcFGUNBQDpzmfs (MEDROL DOSEPACK) 4 MG tablet TAKE BY MOUTH DIRECTED ON INSIDE OF PACKAGE 06/21/2024 Active Start: 10-63-0466dwtmgjRACSCVOvzjfy sodium succ (SOLU-MEDROL) injection 40 mg24 hr metoprolol succinate 25 mg extended release oral tablet (20 sources)beta-Adrenergic BlockerStart: 97-30-9482Bwiaqxvupd Succinate 25 mg tablet extended release 24 hr Active 50 MG PO Twice daily June 24, 2025 12:18pm Complies with drug therapyStart: 12-84-5115jucl 1 tablet by mouth once daily before breakfastmetoprolol succinate (TOPROL XL) 50 MG extended release tablet Indications: History of syncope , Essential hypertension , Tobacco abuse , Mixed hyperlipidemia , SOB (shortness of breath) , Bilateral leg edema Take 1 tablet by mouth every morning (before breakfast) 90 tablet 3 11/13/2024 Active Start: 07-28-7090Bfacc: 39-12-6222tsno 1 tablet by mouth in the evening metoprolol succinate (TOPROL XL) 25 MG extended release tablet Take 1 tablet by mouth in the evening 90 tablet 3 07/31/2024 ActiveStart: 70-78-3504czlm 75 mg by mouth once daily75 mg, Oral, DAILY, First dose on Tue07/24/24 at 0900, Until Discontinued, Do not crush or chew.Start: 20-41-7453jpsr 1 tablet by mouth once dailymetoprolol succinate (TOPROL XL) 50 MG extended release tablet Indications: History of syncope , Essential hypertension , Tobacco abuse , Mixed hyperlipidemia , SOB (shortness of breath) , Bilateral leg edema Take 1 tablet by mouth daily 90 tablet 3 07/05/2024 ActiveStart: 42-69-1595rtbd 1 tablet by mouth once daily, then take 1 tablet by mouth once daily in the evening metoprolol succinate (TOPROL XL) 25 MG extended release tablet Take 1 tablet by mouth daily Take 1 tablet every evening. 90 tablet 3 08/04/2023 ActiveStart: 96-03-1754heuu 1 tablet by mouth once daily in the morningmetoprolol succinate (TOPROL XL) 50 MG extended release tablet Take 1 tablet by mouth daily Take 50mg in the morning 90 tablet 3 08/04/2023 ActiveStart: 02-23-2019 End: 76-00-2346hvmg 1 tablet by mouth at bedtimemetoprolol succinate [...] mg oral tablet (20 sources)Leukotriene Receptor AntagonistStart: 02-08-5723msyx 1 tablet by mouth at bedtimemontelukast (SINGULAIR) [...] other day 0 ActiveNaloxone (20 sources)Opioid AntagonistStart: 15-48-8173Ydwnhkve HCl (NARCAN IJ) by Nasal route 07/04/2024 ActiveStart: 01-16-6966nkasftxy 4 MG/0.1ML LIQD nasal spray 07/04/2024 Activenaloxone 0.4 mg in 10 mL sodium chloride syringe (1 source)Start: 98-98-0587ZuwccLXElwk, PRN, Opioid Reversal, Starting on Tue07/23/25 at [...] mg/hr transdermal system (17 sources)Cholinergic Nicotinic AgonistStart: 57-26-6146shwun 1 dose transdermal route once daily at [...] to facility policy for handling and disposal.Start: 42-48-5648hlvejkmv (NICOTROL) 10 MG inhaler Indications: Cigarette nicotine dependence without complication Inhale 1 puff into the lungs as needed for Smoking cessation 1 Inhaler 3 01/23/2020 Active NONFORMULARY (20 sources)NONFORMULARY Medical Marijuana Card 0 Activenystatin 994335 unt/ml oral suspension (1 source)Polyene AntifungalStart: 09-23-2022 End: 48-50-1801firk 5 mL by mouth four times dailynystatin (MYCOSTATIN) 212883 UNIT/ML suspension Indications: Oral candidiasis Take 5 mLs by mouth 4times daily for 10 days 200 mL 0 09/23/2022 10/03/2022 Activeomeprazole 20 mg delayed release oral capsule (20 sources)Proton Pump InhibitorStart: 05-17-2024 End: 19-41-8535mjjr 1 capsule by mouth once dailyomeprazole (PRILOSEC) 20 MG delayed release capsule Indications: Gastroesophageal reflux disease without esophagitis Take 1 capsule by mouth Daily 90 capsule 3 06/13/2024 05/31/2025 Discontinued (Stop Taking at Discharge)ondansetron (ZOFRAN-ODT) disintegrating tablet 4 mg (4 sources)Start: 07-83-0497itytzvsunzr (ZOFRAN-ODT) disintegrating tablet 4 mg Start: 76-46-8450ufguztahvge (ZOFRAN-ODT) disintegrating tablet 4 mgStart: 77-87-5980nyrjzotggkv (ZOFRAN-ODT) disintegrating tablet 4 mgStart: 06-11-2023 ondansetron (ZOFRAN-ODT) disintegrating tablet 4 mgoxyCODONE (2 sources)Opioid AgonistStart: 07-23-2025 End: 46-42-5493iokEUKZLM (ROXICODONE) immediate release tablet 5 mgStart: 07-14-2024 End: 39-58-6411nque 1 dose by mouth once5 mg, Oral, ONCE, 1 dose, On 07/14/24 at 0030pioglitazone 30 mg oral tablet (20 sources)Peroxisome Proliferator Receptor alpha Agonist, Peroxisome Proliferator Receptor gamma Agonist, ThiazolidinedioneStart: 99-48-5637putt 30 mg by mouth once daily30 mg, Oral, DAILY, First dose on 09/15/24 at 1100, Until DiscontinuedStart: 29-69-2724qkbg 1 tablet by mouth once dailypioglitazone (ACTOS) 30 MG tablet Take 1 tablet by mouth daily 06/12/2024 Activepolyethylene glycol 3350 23461 mg powder for oral solution (4 sources)Osmotic LaxativeStart: 35-14-0447Sbkik: g, Oral, DAILY PRN, Starting on 09/14/24 at 1124, Until Discontinued, Constipation, First line therapy for constipationStart: g, Oral, DAILY PRN, Starting on 07/23/24 at 1845, Until Discontinued, Constipation, First line therapy for constipationStart: g, Oral, DAILY PRN, Starting on 06/11/23 at 0043, Until Discontinued, Constipation First linetherapy for constipation Potassium Chloride (1 source)Start: 25-53-6292vyzhttppi chloride (KLOR-CON M) extended release tablet 40 mEqpovidone-iodine 100 mg/ml topical spray (1 source)AntisepticStart: 46-55-7472Wwouuek, PRN, Wound Care, Please send to patient room STAT, Starting on Tue07/23/24 at 1848, For 1dose, 1 Large bottle to bedside for Podiatry resident. Please bring to room for dressing changes Morgan nk you Either from supply room or pharmacy. Wherever it is most readily availablepredniSONE 10 mg oral tablet (2 sources)Start: 60-09-2089uimiuyTFXN (DELTASONE) 10 MG tablet 4 tabs daily for 3 days, 3 tabs daily for 3 days, 2 tabs daily for 3 days, 1 tab daily for 3 days 30 tablet 0 06/14/2023 Activepregabalin 150 mg oral capsule (20 sources)Start: 49-65-0093tduo 150 mg by mouth three times eslfu902 mg, Oral, 3 times daily, First dose (after last modification) on Tue05/31/25 at 0900, Until DiscontinuedStart: 05-30-2025 End: 87-17-2083gaol 75 mg by mouth three times daily75 mg, Oral, 3 times daily, First dose on Olena 05/30/25 at 0900, Until DiscontinuedStart: 45-98-8307zhpk 1 capsule by mouth at bedtimepregabalin (LYRICA) 150 MG capsule Take 1 capsule by mouth in the morning, at noon, and at bedtime.05/15/2025 ActiveStart: 09-15-2024 take 25 mg by mouth once daily25 mg, Oral, DAILY, First dose on Tue09/15/24 at 1100, Until DiscontinuedStart: 46-23-3988gfgk 1 capsule by mouth three times dailypregabalin (LYRICA) 50 MG capsule Take 1 capsule by mouth 3 times daily. 09/07/2024 ActiveStart: 06-30-2024 End: 76-96-2542mqqlxnnlpb (LYRICA) 25 MG capsule 06/30/2024 ActiveStart: 78-67-6110bfxb 25 mg by mouth three times daily25 mg, Oral, 3 TIMES DAILY, First dose (after last modification) on Tue07/24/24 at 1400, Until Gtzhlqnmncji84 ml sodium chloride 9 mg/ml injection (20 sources)Start: 33-51-5893SecjuRYIbzi, at 5-250 mL/hr, PRN, if patient receiving [...] dose on Tue05/30/25 at 0900, Until DiscontinuedStart: 69-66-8134Elppg: 05-30-2025 End: 85-89-9366UmewfGYKngr, at 150 mL/hr, CONTINUOUS, Starting on Tue05/30/25 at 0515, For 24 hours, Complete last bag that is running at 24 hours and then saline lock IVStart: 96-08-5156Eiqpn: 09-14-2024 End: 64-77-8947Ornsn: 57-66-4651TxbbdNPJerr, at 5-250 mL/hr, PRN, if patient receiving [...] Central Line = 20 mL/lumenStart: 07-23-2024 End: 45-05-2068InsoxKAXvkc, at 75 mL/hr, CONTINUOUS, Starting on Tue07/23/24 at 1915, For 24 hours, Complete lastbag that is running at 24 hours and then saline lock IVStart: 34-74-9030VkonoITJqzt, at 5-250 mL/hr, PRN, if patient receiving [...] Midline or Central Line = 20 mL/lumenStart: 97-68-0060vrjq 1 dose intravenously twice daily5-40 mL, IntraVENous, [...] Central Line = 20 mL/lumenStart: 06-11-2023 End: 40-30-0799StxzbZRUbth, at 75 mL/hr, CONTINUOUS, Starting on 06/11/23 at 0100Start: 65-39-1214anvo 5-40 mL intravenously once as needed5-40 mL, [...] Central Line = 20 mL/lumenStart: 06-10-2023 End: 47-43-8815elaxsy chloride 0.9 % bolus 1,000 mLtiZANidine 4 mg oral tablet (20 sources)Central alpha-2 Adrenergic AgonistStart: 43-90-4942lcWDTiulhv (ZANAFLEX) 4 MG tablet Take 1 tablet by mouth 0 03/13/2024 ActiveStart: 87-57-6685mzMBBvfeti (ZANAFLEX) 4 MG tablet 4 mg nightly 0 02/21/2019 Active traMADol hydrochloride 50 mg oral tablet (20 sources)Opioid AgonistStart: 00-63-2249ayvx 1 tablet by mouth every twelve hours as needed for pain and pain, then take 2 tablets by mouthevery six hours as needed for pain and painTramadol 50 mg tablet Active 100 MG PO Q12H as needed for Pain June 24, 2025 12:21pm Take 1 or 2 tabs p.o. every 6 hours as needed for pain Complies with drug therapyStart: 80-58-2647szwv 100 mg by mouth twice owqwk827 mg, Oral, 2 times daily, First dose on Olena 05/30/25 at 1115, Until DiscontinuedStart: 11-19-2024 End: 62-28-9389lwyf 1 tablet by mouth every four hours [...] 300 mg 120 tablet 11/19/2024 12/19/2024 ActiveStart: 23-30-2201kuth 100 mg by mouth twice mg, Oral, 2 times daily, First dose on 09/15/24 at 1145, Until Discontinued Start: 07-23-2024 End: 38-86-8120ffrz 100 mg by mouth twice daars746 mg, Oral, 2 TIMES DAILY, First dose on 07/23/24 at 2330, Until DiscontinuedStart: 06-11-2023 End: 03-37-9742isuWNDow (ULTRAM) tablet 50 mgStart: 10-04-2022 End: 82-41-0397bjdm 1 tablet by mouth every six hours [...] 120 tablet 01/21/2025 02/20/2025 ActiveStart: 09-21-2022 End: 54-13-0661kmwh 1 tablet by mouth twice dailyTramadol 100 mg Tablet Extended Release 24 Hr Discontinued 100 MG PO Twice daily September 21, 2022 1:00am June 24, 2025 12:21pmStart: 09-20-2022 End: 40-01-8832nhhz 2 tablets by mouth at bedtimetraMADol (ULTRAM) [...] 200 mg 120 tablet 09/17/2024 10/17/2024 ActiveStart: 47-44-1453dnzHRPum (ULTRAM) 50 MG tablet Take 1 to [...] acetonide 0.25 mg/ml topical cream (20 sources)CorticosteroidStart: 94-19-2322tjcyvqtjawcnz (KENALOG) 0.025 % cream Indications: Eczema of external ear, bilateral Apply topically 2 times daily. 15 g 04/25/2025 Active Completed/Discontinued Medications MedicationDrug Class(es)DatesSig (Normalized)Sig (Original)azithromycin (ZITHROMAX) 500 mg in 250 mL addavial (1 source)Start: 06-10-2023 End: 94-90-9501jelqewhekaur (ZITHROMAX) 500 mg in 250 mL addavialbaclofen 10 mg oral tablet (20 sources)gamma-Aminobutyric Acid-ergic AgonistStart: 06-18-2021 End: 02-16-8061dwww 1 tablet by mouth once daily at bedtimeBaclofen 10 mg tablet Discontinued 10 MG PO Daily at bedtime September 21, 2022 1:00am June 242024 12:17pm On Hold: Resume on 10/11/22. While on cyclobenzaprineStart: 46-55-6951ghtt 1 tablet by mouth three times dailybaclofen (LIORESAL) 10 MG tablet Take 1 tablet by mouth 3 times daily 0 06/18/2021 ActiveStart: 06-18-2021 End: 63-84-8678liydbedn (LIORESAL) 10 MG tablet 2 times daily 0 06/18/2021 ActiveStart: 12-38-1807fttq 1 tablet by mouth three times dailybaclofen (LIORESAL) 10 MG tablet Indications: TMJ tenderness, left Take 1 tablet by mouth 3 times daily 90 tablet 1 09/10/2019 Activebenzonatate 100 mg oral capsule (1 source)Non-narcotic AntitussiveStart: 87-70-4922utic 100 mg by mouth three times daily as ukwhsz972 mg, Oral, 3 TIMES DAILY PRN, Starting on 06/11/23 at 0043, Until Discontinued, Cough60 actuat budesonide 0.16 mg/actuat / formoterol fumarate 0.0045 mg/actuat metered dose inhaler (1 source)Corticosteroid, beta2-Adrenergic AgonistStart: puff, Inhalation, 2 TIMES DAILY RESP, First dose on Olena 05/30/25 at 0800, Until Discontinued, Substituted for fluticasone-salmeterol (ADVAIR DISKUS or WIXELA INHUB).chlorhexidine gluconate 1.2 mg/ml mouthwash (3 sources)Start: 07-05-2024 End: 83-76-8887lugn 15 mL by mouth twice dailychlorhexidine (PERIDEX) 0.12 % solution Indications: Oral aphthous ulcer Swish and spit 15 mLs 2 times daily for 14 days 420 mL 07/05/2024 07/19/2024 Expiredciprofloxacin 500 mg oral tablet (2 sources)Quinolone AntimicrobialStart: 08-21-2024 End: 00-25-6823sdoo 1 tablet by mouth twice dailyciprofloxacin (CIPRO) 500 MG tablet Take 1 tablet by mouth 2 times daily 28 tablet 08/21/2024 09/07/2024 Discontinued (Therapy completed)cyclobenzaprine hydrochloride 10 mg oral tablet (3 sources)Muscle RelaxantStart: 10-04-2022 End: 55-66-3788fijp 1 tablet by mouth three times daily as needed for muscle spasmsCyclobenzaprine 10 mg tablet Discontinued 10 MG PO Three times daily as needed for back spasms October 04, 2022 1:00am June 24, 2025 12:17pm Start: 08-06-2022 End: 61-42-5550yfrs 1 tablet by mouth once daily as needed for muscle spasms cyclobenzaprine (FLEXERIL) 10 MG tablet Take 1 tablet by mouth nightly as needed for Muscle spasms 10 tablet 0 08/06/2022 08/16/2022 Activedextromethorphan hydrobromide 2 mg/ml / guaiFENesin 20 mg/ml oral suspension (1 source)Uncompetitive K-iufsem-H-aspartate Receptor Antagonist, Sigma-1 AgonistStart: 76-27-8928cqgt 5 mL by mouth every four hours as needed5 mL, Oral, EVERY 4 HOURS PRN, Starting on 06/11/23 at 0043, Until Discontinued, Cough dimenhyDRINATE 50 mg oral tablet (1 source)Start: 07-23-2025 End: 78-57-8258uuhm 1 dose by mouth once daily50 mg, Oral, ONCE, 1 dose, On Tue07/23/25 at 0700, Pre-op (day of surgery)Start: 07-23-2025 End: 72-07-6563qpnb 1 dose by mouth once daily50 mg, Oral, ONCE, 1 dose, On Tue07/23/25 at 0700, Pre-op (day of surgery)0.4 ml enoxaparin sodium 100 mg/ml prefilled syringe (3 sources)Low Molecular Weight HeparinStart: 95-06-3449mdfbrq 40 mg by subcutaneous injection once daily40 mg, SubCUTAneous, DAILY, First dose on Tue09/14/24 at 1400, Until Discontinued, Indication of Use: Prophylaxis-DVT/PE, Administer by deep subCUTAneous injection with pt lying down. Alternate injec tion sites on abdominal wall. Do not rub site after injection. Check with provider prior to any invasive procedure.Start: 74-45-8446ueldyr 40 mg by subcutaneous injection once daily40 mg, SubCUTAneous, DAILY, First dose on Tue07/24/24 at 0900, Until Discontinued, Indication of Use: Prophylaxis-DVT/PE, Administer by deep subCUTAneous injection with pt lying down. Alternate injec tion sites on abdominal wall. Do not rub site after injection. Check with provider prior to any invasive procedure.Start: 99-99-7413gxktte 40 mg by subcutaneous injection once daily40 mg, SubCUTAneous, DAILY, First dose on Tue06/11/23 at 0900, Until Discontinued Indication of Use: Prophylaxis-DVT/PE ergocalciferol 1.25 mg oral capsule (1 source)Provitamin D2 CompoundStart: 77-18-2599uoka 21716 [IU] by mouth every week50,000 Units, Oral, WEEKLY, First dose on Tue07/25/24 at 0930, Until Discontinuedfamotidine 20 mg oral tablet (1 source)Histamine-2 Receptor AntagonistStart: 33-18-8413icph 20 mg by mouth twice daily20 mg, Oral, 2 TIMES DAILY, First dose on Tue06/11/23 at 0100, Until Discontinuedgabapentin 300 mg oral capsule (20 sources)Anti-epileptic AgentStart: 09-14-2024 End: 03-58-2463887 mg, Oral, ONCE, 1 dose, On Tue09/14/24 at 0630, Administer 60 minutes prior to surgery., Pre-op (day of surgery)Start: 07-23-2024 End: 39-18-7275348 mg, Oral, ONCE, 1 dose, On Tue07/23/24 at 1245, Administer 60 minutes prior to surgery., Pre-op (day of surgery)Start: 10-85-3470zqwoiyursi (NEURONTIN) capsule 600 mgStart: 02-21-2019 End: 43-67-4759rofi 1 tablet by mouth three times dailyGabapentin [...] mg oral tablet (1 source)Nonsteroidal Anti-inflammatory DrugStart: 34-17-8398locj 400 mg by mouth three times daily at lznvngeo235 mg, Oral, 3 TIMES DAILY WITH MEALS, First dose on 06/11/23 at 0800, Until Discontinued Do not crush or break. Substituted for Diclofenac (VOLTAREN).insulin glargine 100 unt/ml injectable solution (20 sources)Insulin AnalogStart: 09-14-2024 End: 29-49-7224epwvhr 15 [IU] by subcutaneous injection twice daily15 Units, SubCUTAneous, 2 TIMES DAILY, First dose on Tue09/14/24 at 2100, Until DiscontinuedStart: 30-60-9733krrpctr glargine (LANTUS SOLOSTAR) 100 UNIT/ML injection pen [...] 60 minutes of last blood glucose checkStart: 99-37-2093DHJSRQM KWIKPEN 200 UNIT/ML SOPN pen 11/08/2024 ActiveStart: [...] 60 minutes of last blood glucose checkStart: 59-80-8149mqjueh 60 [IU] by subcutaneous injection three times daily at uaioxlht51 Units, SubCUTAneous, 3 TIMES DAILY WITH MEALS, [...] last blood glucose check Start: 06-11-2023 End: 71-98-2533bqlnhc 15 [IU] by subcutaneous injection three times daily at wuyocayq60 Units, SubCUTAneous, 3 TIMES DAILY WITH MEALS, First dose on 06/11/23 at 1700, Until Discontinued Substituted for Insulin lispro U-200 (HumaLOG KwikPen).Start: 62-07-0469Mvwgmlc Lispro (Humalog Kwikpen Insulin) 200 unit/mL (3 mL) insulin pen Active sliding scale dose SUBCUT As Directed September 21, 2022 1:00am Complies with drug therapyStart: 11-50-4167HSPNKTV KWIKPEN 200 UNIT/ML SOPN pen Indications: Diabetes mellitus type 2 with complications, uncontrolled INJECT 15 UNITS INTO THE SKIN 3 TIMES DAILY WITH MEALS 15 mL 5 03/10/2020 ActiveStart: 57-90-4500azmvwcl lispro (HUMALOG KWIKPEN) 200 UNIT/ML SOPN pen Indications: Diabetes mellitus type 2 with complications, uncontrolled (HCC) Inject 15 Units into the skin 3 times daily (with meals) 5 pen 5 01/2019 Active3 ml insulin, regular, human 500 unt/ml pen injector (20 sources)InsulinStart: 33-82-7648951 Units, SubCUTAneous, 2 TIMES DAILY WITH MEALS, First dose on 09/15/24 at 1700, Until Discontinued, This is a highly concentrated insulin. After attaching the pen needle, prime with 5 units to ensure proper dosing.Start: 04-94-9049FNEUUOI R U-500 KWIKPEN 500 UNIT/ML SOPN concentrated injection pen 09/02/2024 ActiveStart: 79-22-3232ocubkb 500 [IU] by subcutaneous injection once dailyHUMULIN R U-500 KWIKPEN 500 UNIT/ML SOPN concentrated injection pen INJECT UP TO 500 UNITS SUBCUTANEOUSLY PER DAY. 09/02/2024 ActiveStart: 74-56-8527rxlwxk 100 [IU] by subcutaneous injection twice daily at nszumnmb966 Units, SubCUTAneous, 2 TIMES DAILY WITH MEALS, First dose on Tue06/11/23 at 1700, Until Discontinued This is highly concentrated insulin. Patient may use home supply.Start: 07-66-7089Iemkylh Regular Hum U-500 Conc (Humulin R U-500 [...] Iopamidol (2 sources)Radiographic Contrast AgentStart: 07-30-2019 End: 17-00-4551ipgsbzewi (ISOVUE-370) 76 % injection 18 mLStart: 07-30-2019 End: 79-50-5406uitdsaocb (ISOVUE-370) 76 % injection 75 mLiopamidol (ISOVUE-370) 76 % injection 75 mL (2 sources)Start: 06-14-2025 End: 94-86-1629mtbm 1 dose intravenously once75 mL, IntraVENous, IMG ONCE PRN, 1 dose, Starting on Tue06/14/25 at 1646, Until Tue06/14/25 at 1744, OtherStart: 06-10-2023 End: 26-87-5700rrggrfsph (ISOVUE-370) 76 % injection 75 mL1 ml ketorolac tromethamine 30 mg/ml cartridge (1 source)Nonsteroidal Anti-inflammatory Drug, Cyclooxygenase InhibitorStart: 07-13-2024 End: 30-01-090354 mg, IntraMUSCular, ONCE, 1 dose, On Tue07/13/24 at 2015, Do not administer for more than 5 days.levocetirizine dihydrochloride 5 mg oral tablet (20 sources)Histamine-1 Receptor AntagonistStart: 09-28-2024 End: 39-07-1606kvwu 1 tablet by mouth in the eveninglevocetirizine (XYZAL) 5 MG tablet Indications: Seasonal allergic rhinitis due to pollen Take 1 tablet by mouth in the evening 31 tablet 5 09/28/2024 05/14/2025 Discontinued (LIST CLEANUP)Start: 96-05-9201phda 1 tablet by mouth once daily in the evening levocetirizine (XYZAL) 5 MG tablet Indications: Seasonal allergic rhinitis due to pollen take 1 tablet by mouth every evening 90 tablet 3 09/23/2023 Seqihh87 ml lidocaine hydrochloride 10 mg/ml injection (2 sources)Antiarrhythmic, Amide Local AnestheticStart: 01-20-2021 End: 03-06-3865imcnporzn PF 1 % injectionlisinopril 10 mg oral tablet (20 sources)Angiotensin Converting Enzyme InhibitorStart: 43-65-3046iyud 1 tablet by mouth once dailylisinopril (PRINIVIL;ZESTRIL) 5 MG tablet Indications: History of syncope , Essential hypertension , Tobacco abuse , Mixed hyperlipidemia Take 1 tablet by mouth daily 90 tablet 3 05/28/2025 ActiveStart: 85-88-5135avlw 1 tablet by mouth once dailylisinopril (PRINIVIL;ZESTRIL) 5 MG tablet Indications: History of syncope , Essential hypertension , Tobacco abuse , Mixed hyperlipidemia Take 1 tablet by mouth daily 90 tablet 3 05/23/2025 ActiveStart: 11-25-2015 End: 72-67-8124xxod 1 tablet by mouth once dailylisinopril (PRINIVIL;ZESTRIL) 10 MG tablet Indications: History of syncope , Essential hypertension, Tobacco abuse , Mixed hyperlipidemia Take 1 tablet by mouth once daily 90 tablet 3 06/10/2025 07/15/2025 Discontinued (LIST CLEANUP)melatonin 3 mg oral tablet (1 source)Start: 43-40-1668equg 3 mg by mouth once daily3 mg, Oral, NIGHTLY, First dose on Tue09/14/24 at 2100, Until Discontinued1 ml morphine sulfate 2 mg/ml injection (2 sources)Opioid AgonistStart: 07-23-2024 End: 63-35-7230sjay 2 mg by mouth every four hours [...] each other unless specifically ordered.Start: 08-06-2022 End: 11-66-0317joyssolc injection 4 mgnitroglycerin 0.3 mg sublingual tablet (1 source)Nitrate VasodilatorStart: 09-29-2022 End: 54-13-3761fidxjEZMCAPLK (NITROSTAT) SL tablet 0.3 mgStart: 09-29-2022 End: 10-28-1051nvwaaKQATJEPG (NITROSTAT) SL tablet 0.3 mg2 ml ondansetron 2 mg/ml injection (1 source)Serotonin-3 Receptor AntagonistStart: mg, IntraVENous, ONCE PRN, 1 dose, Starting on Tue07/23/25 at 0838, Until Discontinued, Nausea, Secondary antiemetic therapy., PACU onlypantoprazole 40 mg delayed release oral tablet (3 sources)Proton Pump InhibitorStart: 15-88-363619 mg, Oral, DAILY BEFORE BREAKFAST, First dose on Tue05/30/25 at 0700, Until Discontinued, Do not crush or break. Substituted for Omeprazole (PRILOSEC).Start: 60-55-3779Knvyg: 07-24-2024 40 mg, Oral, DAILY BEFORE BREAKFAST, First dose on Tue07/24/24 at 0700, Until Discontinued, Do notcrush or break. Substituted for Omeprazole (PRILOSEC). regadenoson (LEXISCAN) injection 0.4 mg (1 source)Start: 03-03-2021 End: 76-56-5858jbbealwaucw (LEXISCAN) injection 0.4 mgrOPINIRole 1 mg oral tablet (20 sources)Nonergot Dopamine AgonistStart: 22-24-5522xtau 4 mg by mouth once daily4 mg, Oral, DAILY, First dose on Olena 05/30/25 at 2100, Until Discontinued Start: 49-57-6805ksrt 4 mg by mouth once daily4 mg, Oral, NIGHTLY, First dose on Tue09/14/24 at 2245, Until DiscontinuedStart: 72-72-3710zcur 4 mg by mouth once daily4 mg, Oral, NIGHTLY, First dose on 07/23/24 at 2330, Until DiscontinuedStart: 80-06-9788bmgz 1 dose by mouth once4 mg, Oral, ONCE, 1 dose, On 07/14/24 at 0100Start: 00-50-1465vkoi 4 mg by mouth once daily4 mg, Oral, NIGHTLY, First dose on 06/11/23 at 0100, Until DiscontinuedStart: 11-03-2015 rOPINIRole (REQUIP) 4 MG tablet TAKE 1 TABLET DAILY 90 tablet 0 11/03/2015 Activesulfamethoxazole 800 mg / trimethoprim 160 mg oral tablet (1 source)Dihydrofolate Reductase Inhibitor Antibacterial, Sulfonamide AntimicrobialStart: 10-04-2022 End: 75-55-7332egst 1 tablet by mouth every twelve hoursSulfamethoxazole- Trimethoprim (Bactrim Ds) 800-160 mg tablet Discontinued 1 TAB PO Q12H October 04, 2022 1:00am June 24, 2025 12:16pmtechnetium sestamibi (CARDIOLITE) injection 30 millicurie (2 sources)Start: 03-04-2021 End: 38-17-8249yqruukwniv sestamibi (CARDIOLITE) injection 30 millicurieStart: 03-03-2021 End: 83-61-4416nxhmzweikz sestamibi (CARDIOLITE) injection 30 millicurie technetium sulfur colloid egg (NYCOMED-SC) solution 1 millicurie (2 sources)Start: 08-22-2019 End: 54-93-0145eoffbcwaan sulfur colloid egg (NYCOMED-SC) solution 1 millicurie Start: 08-16-2019 End: 07-11-3279zbxldsjnhh sulfur colloid egg (NYCOMED-SC) solution 1 millicurie water 1000 mg/ml injectable solution (3 sources)Start: 06-11-2023 End: 22-00-6213pcryrty water injection Problems Active Problems Problem ClassificationProblemDateDocumented DateEpisodic/ChronicAbdominal pain (20 sources)Generalized abdominal pain; Translations: [Abdominal pain]07-09-2015 EpisodicAcute and unspecified renal failure (17 sources)Acute renal failure syndrome; Translations: [Acute kidney failure, unspecified]Onset: 187163-83-7385HbpatmdgClimjmqepnjabc/social admission (1 source)Counseling procedure with explicit context; Translations: [Tobacco abuse counseling]EpisodicCalculus of urinary tract (20 sources)Kidney stone; Translations: [Ureteric stone]Onset: 07-03-2013 Resolved: 790301-12-0141HbnothnaWpjpfhzarjjc of device; implant or graft (2 sources)Pain due to other internal prosthetic devices, implants and grafts, initial encounter; Translations: [Pain]EpisodicComment on above:Problem List clean-up per request of Phys. EHR CmteConditions associated with dizziness or vertigo (19 sources)Dizziness; Translations: [Dizziness and giddiness]Onset: 05-31-2025 EpisodicDiabetes mellitus with complications (20 sources)Diabetic neuropathy; Translations: [Hyperglycemia due to type 2 diabetes mellitus]Onset: 564574-45-5127RsmvaktNtxwtdbw mellitus without complication (20 sources)Type 2 diabetes mellitus; Translations: [Type 2 diabetes mellitus with unspecified complications]Onset: 874684-63-0646EmdhbyvNqclgvjpx of lipid metabolism (20 sources)Dyslipidemia; Translations: [Hypertriglyceridemia]Onset: 07-06-2015 50-98-0886GprtcshRlqyoyqja hypertension (20 sources)Essential hypertension; Translations: [Essential (primary) hypertension]Onset: 527345-12-0352FruvdjtNunxoygqfzwci symptoms and ill- defined conditions (20 sources)Carl hematuria; Translations: [Gross hematuria]Onset: 07-19-2013 57-26-5100PcicxvpyHdwstkml; including migraine (1 source)Scalp tenderness; Translations: [Scalp tenderness]EpisodicHeart valve disorders (2 sources)Heart murmur; Translations: [Cardiac murmur, unspecified]Onset: 700677-33-3205EzghvqpeQkagvxjm disorders (1 source)Other specified disorders involving the immune mechanism, not elsewhere classified; Translations: [OTH SPEC D/O INVOLV IMMUNE MECH NEC]Onset: 24-01-0469BjksytxFdbgtir and fatigue (2 sources)Tired; Translations: [Other fatigue]EpisodicMood disorders (20 sources)Depressive disorder; Translations: [Major depressive disorder, single episode, unspecified]Onset: 077365-13-6907TeclgrqNzfaepsoukt chest pain (1 source)Chest discomfort; Translations: [Other chest pain]Episodic Osteoarthritis (20 sources)Unspecified osteoarthritis, unspecified site; Translations: [Osteoarthritis of joint of left shoulder region]Onset: 785622-29-2234 ChronicOsteoporosis (2 sources)Osteoporosis; Translations: [Age-related osteoporosis without current pathological fracture]15-15-9476XxxelqoJorsl circulatory disease (14 sources)Orthostatic hypotension; Translations: [Orthostatic hypotension] Onset: 065809-00-0033OktyjajvAiejk circulatory disease (1 source)Facial sinus finding; Translations: [Other specified symptoms and signs involving the circulatory and respiratory systems]70-11-0279KqmgdkidSgwaf circulatory disease (1 source)Other specified symptoms and signs involving the circulatory and respiratory systems; Translations:[Other specified symptoms and signs involving the circulatory and respiratory systems]Onset: 59-73-0586RcgowclcAbgqa connective tissue disease (1 source)Pain in left foot; Translations: [Pain in left foot]26-78-4432Hlspkasp Other diseases of kidney and ureters (1 source)Abnormal renal function; Translations: [Disorder of kidney and ureter, unspecified]06-55-5976NlsmqspjMnlfh diseases of kidney and ureters (1 source)Disorder of kidney and ureter, unspecified; Translations: [Disorder of kidney and ureter, unspecified]Onset: 67-33-2052LvfiegmkOfpqt injuries and conditions due to external causes (1 source)Injury of head; Translations: [Traumatic injury of head, initial encounter]EpisodicOther injuries and conditions due to external causes (18 sources)Acute organ dysfunction due to systemic inflammatory response syndrome; Translations: [SIRS withoutinfection with organ dysfunction]Onset: Other liver diseases (20 sources)Steatosis of liver; Translations: [Fatty (change of) liver, not elsewhere classified]Onset: 701193-92-8497WfkcxijHfqtf liver diseases (1 source)Large liver; Translations: [Hepatomegaly, not elsewhere classified] EpisodicOther liver diseases (1 source)Increased creatine kinase level; Translations: [Abnormal levels of other serum enzymes]90-05-7396HcutzeyiGepsp liver diseases (1 source)Abnormal levels of other serum enzymes; Translations: [Abnormal levels of other serum enzymes]Onset: 37-81-7718NsielsjhXswmn lower respiratory disease (1 source)Rib pain; Translations: [Pleurodynia]EpisodicOther lower respiratory disease (2 sources)Dyspnea; Translations: [Shortness of breath]10-78-0710AytpgsguMgxjb lower respiratory disease (1 source)Shortness of breath; Translations: [Shortness of breath]Onset: 54-32-9343QchgeblrMxneh nervous system disorders (2 sources)Chronic pain; Translations: [Other chronic pain]ChronicOther nervous system disorders (2 sources)Complex regional pain syndrome of lower limb; Translations: [Complex regional pain syndrome I of left lower limb]ChronicOther nervous system disorders (5 sources)Other chronic pain; Translations: [OTHER CHRONIC PAIN]Onset: 74-17-8825JkstrpbYelzk nervous system disorders (5 sources)Chronic pain syndrome; Translations: [CHRONIC PAIN SYNDROME]Onset: 98-10-0784VhcgufjEqllb nervous system disorders (1 source)Other acute postprocedural pain; Translations: [Other acute postprocedural pain]Onset: 92-07-5553AffmjymdFxlog non-traumatic joint disorders (20 sources)Charcot's arthropathy; Translations: [Charcot's joint, left ankle and foot]Onset: 372550-60-5001UeivqpcQffey non-traumatic joint disorders (20 sources)Charcot's joint of foot; Translations: [Charcot's joint, left ankle and foot]Onset: 645127-41-4338QoclbpwLwrqb non-traumatic joint disorders (4 sources)Charcot's joint, left ankle and foot; Translations: [Charcot's joint, left ankle and foot]Onset: 72-06-0705GujrauqElwni non-traumatic joint disorders (2 sources)Pain in right shoulder; Translations: [Pain in joint, shoulder region]Onset: 117844-88-9810NtfdmldhLkprp nutritional; endocrine; and metabolic disorders (4 sources)Body mass index 30+ - obesity; Translations: [Body mass index (BMI) 33.0-33.9, adult]90-75-4248DlumrmdNuqze nutritional; endocrine; and metabolic disorders (14 sources)Body mass index 40+ - severely obese; Translations: [Morbid (severe) obesity due to excess calories]Onset: 607667-05-8893AnevstwTxnnq upper respiratory disease (2 sources)Allergic rhinitis; Translations: [Allergic rhinitis, unspecified] 76-50-7454SricukgVkubz upper respiratory disease (1 source)Allergic rhinitis, unspecified; Translations: [Allergic rhinitis, unspecified]Onset: 63-12-3140BngjiowFcbop upper respiratory disease (2 sources)Nasal congestion; Translations: [Nasal congestion]78-01-0486Bjyjrmqp Other upper respiratory disease (1 source)Nasal congestion; Translations: [Nasal congestion]Onset: 07-17-2025 EpisodicOther upper respiratory infections (1 source)Recurrent sinusitis; Translations: [Chronic sinusitis, unspecified] 59-93-4361VptolmfPoqsx upper respiratory infections (2 sources)Pansinusitis; Translations: [Acute recurrent pansinusitis]07-02-2024 EpisodicPeripheral and visceral atherosclerosis (1 source)Intermittent claudication; Translations: [Peripheral vascular disease, unspecified]ChronicResidual codes; unclassified (18 sources)Tobacco user; Translations: [Tobacco abuse]Onset: 12-21-2017 59-18-9306PrxknrbYvdkzjoq codes; unclassified (16 sources)Obstructive sleep apnea syndrome; Translations: [Obstructive sleep apnea (adult) (pediatric)]Onset: 10-17-1365HqgdgngVgqmkcrp codes; unclassified (1 source)Edema of lower leg ; Translations: [Localized edema]15-01-4067Zuxqdjmk Residual codes; unclassified (2 sources)History of syncope; Translations: [Personal history of other specified conditions]85-18-1345HeflreowYvwirjne codes; unclassified (1 source)Bilateral lower limb edema; Translations: [Localized edema]05-23-2025 EpisodicResidual codes; unclassified (1 source)Personal history of other specified conditions; Translations: [Personal history of other specified conditions]Onset: 48-80-0197Doydyqtd Residual codes; unclassified (1 source)Localized edema; Translations: [Localized edema]Onset: 05-23-2025 EpisodicSpondylosis; intervertebral disc disorders; other back problems (19 sources)Degeneration of lumbar intervertebral disc; Translations: [Other intervertebral disc degeneration, lumbar region]Onset: 48-70-4588Lkuhquo Substance-related disorders (2 sources)Smoker; Translations: [Nicotine dependence, unspecified, uncomplicated]00-92-2766WwhcxtrYayuurl on above:Problem List clean-up per request of Phys. EHR CmteThyroid disorders (1 source)Goiter; Translations: [Thyromegaly]ChronicUnclassified (1 source)Patient encounter status; Translations: [Preoperative testing] Unclassified (1 source)Pain due to other internal prosthetic devices, implants and grafts, initial encounter; Translations: [Pain due to other internal prosthetic devices, implants and grafts, initial encounter]Onset: 71-03-0374Sqttkqjylorw (1 source)Encounter for preprocedural laboratory examination; Translations: [Encounter for preprocedural laboratory examination]Onset: 09-30-2022 Unclassified (1 source)M79.10 - Myalgia, unspecified site; Translations: [M79.10 - Myalgia, unspecified site]Onset: 80-99-5682Ftwhrrpvncjp (4 sources)LOW BACK PAIN, UNSPECIFIED; Translations: [LOW BACK PAIN, UNSPECIFIED]Onset: 20-45-2406Egsiyfcwduwb (1 source)Facial sinus ewcryrz57-32-2268 Past or Other Problems Problem ClassificationProblemDateDocumented DateEpisodic/ChronicAnal and rectal conditions (20 sources)Perirectal abscess; Translations: [Rectal abscess]Onset: 12-20-2017 94-64-7700HltjvgxlZpzzkkpc of lower limb (20 sources)Closed fracture of metatarsal bone of left foot; Translations: [Fracture of unspecified metatarsal bone(s), left foot, initial encounter for closed fracture]Onset: 365325-01-4221DbrzbcjqAlsdc disorders and dislocations; trauma-related (20 sources)Traumatic dislocation of joint of foot; Translations: [Dislocation of tarsometatarsal joint of leftfoot, initial encounter]Onset: 07-17-2024 95-26-1921DxnseaowGlvhi acquired deformities (20 sources)Acquired equinus deformity of foot; Translations: [Other specified acquired deformities of left lower leg]Onset: 315156-59-1745IetyfhtfYexkc aftercare (2 sources)intermediate designer (current) use of insulin; Translations: [skilled nursing (current) use of insulin (HCC)]Onset: 35-44-4888YrvzqervKafwx and unspecified benign neoplasm (20 sources)Benign neoplasm of skin of trunk; Translations: [Melanocytic nevi of trunk]Onset: 557008-14-6923VeqqhpxoMtjoq connective tissue disease (20 sources)Fibromyalgia; Translations: [Fibromyalgia]Onset: 01-31-2013 93-63-6364SokweodoRzkdr connective tissue disease (20 sources)Pain in upper limb; Translations: [Pain in arm, unspecified]Onset: 343865-08-9662CphgrvghVyqqb connective tissue disease (20 sources)Spasm; Translations: [Other muscle spasm]Onset: EpisodicOther connective tissue disease (20 sources)Muscle pain; Translations: [Myalgia, other site]Onset: 12-08-2023 05-76-4996MjqugklrXgmig connective tissue disease (1 source)Pain in left foot; Translations: [Pain in left foot]Onset: 08-31-2024 EpisodicOther diseases of kidney and ureters (20 sources)Hydronephrosis; Translations: [Unspecified hydronephrosis]Onset: 04-28-2016 Resolved: 142506-08-2032TzyeospjMegzq injuries and conditions due to external causes (20 sources)Acute organ dysfunction due to systemic inflammatory response syndrome; Translations: [Systemic inflammatory response syndrome (SIRS) of non- infectious origin with acute organ dysfunction]Onset: EpisodicOther nervous system disorders (20 sources)Postoperative pain ; Translations: [Other acute postprocedural pain] Onset: 07-23-2024 Resolved: 358653-02-1547OdhpbtxvWneti non-traumatic joint disorders (20 sources)Multiple joint pain; Translations: [Pain in unspecified joint]Onset: 385638-95-0264DppvbfpeSsxnp non-traumatic joint disorders (20 sources)Pain in left shoulder; Translations: [Pain in joint, shoulder region]Onset: 450814-98-3975VjabpnafVbnss screening for suspected conditions (not mental disorders or infectious disease) (20 sources)Liver function tests abnormal; Translations: [Abnormal results of liver function studies]Onset: 62-71-1284VriatbqlDlenarqbpa disorders (not diabetes) (20 sources)Idiopathic acute pancreatitis; Translations: [Idiopathic acute pancreatitis without necrosis or infection]Onset: 863866-12-9156Xabgphkw Pneumonia (except that caused by tuberculosis or sexually transmitted disease) (20 sources)Infective pneumonia; Translations: [Pneumonia, unspecified organism] Onset: 519065-81-3049OpevfkirYigmyruh codes; unclassified (20 sources)Tobacco user; Translations: [Tobacco use]Onset: EpisodicResidual codes; unclassified (3 sources)Tobacco use; Translations: [Tobacco use]Onset: 77-06-7460Gdakejsz Spondylosis; intervertebral disc disorders; other back problems (20 sources)Lumbago with sciatica; Translations: [Lumbago with sciatica, left side]Onset: 36-40-5142HzzthoscFeipeht (20 sources)Situational syncope; Translations: [Syncope and collapse]Onset: 49-99-3461IdpvffryMwwkptuifizt (1 source)LOW BACK PAIN, UNSPECIFIED; Translations: [LOW BACK PAIN, UNSPECIFIED] Onset: 31-26-6837Ehvwthunwcgn (1 source)Acute pain of right zjvydkic52-55-3572Pesqxvrwhnub (1 source)Acute pain of left shpqtvee62-37-8331 Results Test NameValueInterpretationReference RangeFacilityMRI SHOULDER LEFT WO CONTRAST on 31-45-6899PZB SHOULDER LEFT WO CONTRASTEXAMINATION: MRI OF THE [...] by: Santiago Ngo MD 08/05/25 Final resultNormalMercy New Milford Hospital SHOULDER RIGHT WO CONTRASTon 85-33-8943THV SHOULDER RIGHT WO CONTRASTEXAMINATION: MRI OF THE [...] the footplate on image 8, series 4. Ebbi-tz-jgwmpofq underlying infraspinatus tendinosis. Less than and up [...] tearing of posterior infraspinatus along the footplate. Akrr-mr-ttnddqio underlying infraspinatus tendinosis. 3. Less than and up to 50% partial-thickness articular-surface and interstitial tearing of the insertional fibers of subscapularis. 4. Mild diffuse labral degeneration. 5. Mild glenohumeral osteoarthrosis. Mild glenohumeral chondromalacia. 6. Evidence of prior distal clavicular resection. 7. Red marrow reconversion. Interpreted by: Santiago Ngo MD Signed by: Santiago Ngo MD 08/05/25 Final resultNormalMercy Day Kimball HospitalOtolaryngology Office/Clinic Noteon 94-47-9671Ojdsfpbutvfbnn Office/Clinic NoteChief Complaint PT states, I'm here [...] # 14 tabs, 0 Refill(s), 08/19/25 14:20:00 [facility], Pharmacy: [id number] Provider Comments This note was generated using [...] nasal, Nasal, BID BD U/F SHORT PEN [id number], See Instructions, USE 5 TIMES A DAY FOR INSULIN INJECTIONS cetirizine 10 mg oral tablet, 30 EA, 0 Refill(s), TAKE 1 TABLET BY MOUTH ONCE DAILY diclofenac sodium 75 mg oral delayed release tablet, 60 EA, 0 Refill(s), TAKE 1 TABLET BY MOUTH TWICE DAILY NEEDED DME - Supplies, N/A, N/A, 5x/Day, 15 refills, 2 Freestyle sensors to use (more content not included)...NormalWilson Street HospitalGlucose, Whole Blood on 03-09-6557Ysstviq [Mass/Vol]239 mg/nHZznw45 - 100 mg/dLBon Wilson HealthInterpretation and review of laboratory resultsAbnoMid Dakota Medical CenterGlucose [Mass/Vol]239 mg/kXZagj50-294FguffSelect Medical Specialty Hospital - Cincinnati NorthGlucose [Mass/Vol]313 mg/kAGull67 - 100 mg/dLBon [facility] Interpretation and review of laboratory resultsAbnoLandmann-Jungman Memorial HospitalGlucose [Mass/Vol]313 mg/fAJerz06-340Qugkh Solsberry HospitalOPERATIVE REPORTon 34-02-1024XLJUIWZBA[address] [address] OPERATIVE REPORT PATIENT NAME:VIRGIL WARNER :1975 MED REC NO:[id number] ROOM:[facility] ACCOUNT NO:[id number] ADMIT DATE:07/23/2025 PROVIDER:Florida Everett MD DATE OF PROCEDURE: 07/23/2025 SURGEON: Florida Everett MD CRABBING MACHINE OPERATOR: None. PREOPERATIVE DIAGNOSIS: Left renal calculus. POSTOPERATIVE [...] obtained. The patient was transferred from the [facility] onto the operative table where she [...] awoken from general anesthesia and transferred to [facility], and taken to PACU in satisfactory condition by Nursing and Anesthesia teams. PLAN: The patient will be discharged home per PACU criteria and followup with us in 3 months for repeat KUB. FLOR[place] EVERETT MD CHRIS/ERI Doc#: [id number] Beachwood [facility] Center SINUS WO CONTRASTon 16-81-1368DU SINUS WO CONTRASTEXAMINATION: CT OF THE SINUS [...] Signed by: Efra Sullivan MD 07/21/25 Final resultNoParkwood HospitalXR ABDOMEN (KUB) (SINGLE AP VIEW)on 85-78-9591FD ABDOMEN (KUB) (SINGLE AP VIEW)EXAMINATION: ONE SUPINE [...] Signed by: Ruddy Mallory DO 07/04/25 Final resultNoParkwood HospitalCult,Urineon 30-67-8454Lqak,UrineSpecimen Description .CLEAN CATCH URINE Special Requests Site: Urine Culture NO SIGNIFICANT GROWTH Report Status FINAL 06/29/2025[facility] Memorial HospitalComment on above: Performed By: #### CP, MG, TROPI #### [facility] [address] [place] [address] [place] [address] Parts Assembler: Phillip Camarena MDUrinalysis w/ Microon 46-30-3758Kggzfwps6+Abnormal NONESelect Medical Specialty Hospital - Cincinnati NorthComment on above:Performed By: #### CP, MG, TROPI #### [facility] [address] [place] [address] [address]. [place], [place] [phone] Parts Assembler: Phillip Camarena MDBilirubin, SemiQt,UrNegativeNormalNEGSelect Medical Specialty Hospital - Cincinnati NorthComment on above:Performed By: #### CP, MG, TROPI #### [facility] [address] [place] [address] [place] [address] Parts Assembler: Billy Tran, UrineNegativeSumma Health Barberton Campus Comment on above:Performed By: #### CP, MG, TROPI #### [address] [place], [place] [id number] Parts Assembler: DAVID Tranlarity (ClearNormalCLEARSelect Medical Specialty Hospital - Cincinnati North Comment on above:Performed By: #### CP, MG, TROPI #### [facility] [address] [place] [address] [place] [address] Parts Assembler: DAVID Tranolor ()YellowNoClinton Memorial Hospital Comment on above:Performed By: #### CP, MG, TROPI #### [facility] [address] [place] [address] Dr. [place], [place] [phone] Parts Assembler: Phillip Camarena MDEpithelial cells LM Ql (Urine sed)2 TO 7Xrkpoq2-91 [facility] NorthComment on above:Performed By: #### CP, MG, TROPI #### [facility] [address] [place] [address] Dr. [place], [place] [phone] Parts Assembler: Phillip Camarena MDGlucose Ql (U)3+ mg/dLAbnormalProtestant HospitalComment on above:Performed By: #### CP, MG, TROPI #### [facility] [address] [place] [address] [place] [address] Parts Assembler: Phillip Camarena MDKetones Ql (U)NegativeNormalNEGSelect Medical Specialty Hospital - Cincinnati NorthComment on above:Performed By: #### CP, MG, TROPI #### [facility] [address] [place] [address] [place] [address] Parts Assembler: Phillip Camarena MDLeukocyte esterase Test strip Ql (U)NegativeNormal NEGMercy Solsberry HospitalComment on above:Performed By: #### CP, MG, TROPI #### [facility] [address] [place] [address] Dr. [place] [address] Parts Assembler: Ania Trantrite,UrNegativeSumma Health Barberton Campus Comment on above:Performed By: #### CP, MG, TROPI #### [facility] [address] [place] [address] [place] [address] Parts Assembler: BENY Tran,Ur6.8Cqshqq2.0-9.0[facility] - [facility] NorthComment on above:Performed By: #### CP, MG, TROPI #### [facility] [address] [place] [address] [place] [address] Parts Assembler: Mira Tran Ql (U)NegativeNormalNEGSelect Medical Specialty Hospital - Cincinnati NorthComment on above:Performed By: #### CP, MG, TROPI #### [facility] [address] [place] [address] [place] [address] Parts Assembler: LAY Tranpec. [place],Ur1.708Dxdzfi3.010-1.020[facility] - Cincinnati NorthComment on above:Performed By: #### CP, MG, TROPI #### [facility] [address] [place] [address] [place] [address] Parts Assembler: Janessa Tran RBC's0 TO 4Klnsti1-8Fyuoa [facility] Comment on above:Performed By: #### CP, MG, TROPI #### [facility] [address] [place] [address] Parts Assembler: Phillip Camarena MDUrine WBC's0 TO 3Ifpmkg8-0MngyhSelect Medical Specialty Hospital - [facility] North Comment on above:Performed By: #### CP, MG, TROPI #### [facility] [address] [place] [address] Parts Assembler: Phillip Camarena MDUrobilinogen,UrNormalNormal0.0-1.0[facility] - [facility] NorthComment on above:Performed By: #### SAMIA, MG, TROPI #### [facility] [address] [place] [address] Parts Assembler: Phillip Camarena MDCTA ABDOMEN W WO CONTRASTon [id number] ABDOMEN W WO CONTRASTEXAM: CTA ABDOMEN AND [...] Signed by: Arlin Freed MD 06/18/25 Final resultNormalMerHospital for Special Care Metabolic Panelon 72-53-9197Pln, Glom Filt Zqeb15Yqa- PINFBon Wilson HealthComment on above: These results are not intended [...] tubular secretion. Interpretation and review of laboratory resultsAbnormalReston Hospital Center Urea nitrogen/Creatinine [Mass ratio]17 mg/mg - Bon [facility] ServicesBasic Metabolic Profon 71-92-6571Hivsq gap [Moles/Vol]14 mmol/LNormal9-16Bon [facility] on above:Performed By: #### CP, MG, TROPI #### [address] [place] [address] Parts Assembler: CHERELLE Tran/CRE Dlrtj67Mrlmcl3-55Gnetb [facility] Comment on above:Performed By: #### CP, MG, TROPI #### [address] [place] [address] Parts Assembler: DAVID Tranalcium [Mass/Vol]9.7 mg/dLNormal8.6-10.4Bon [facility] on above:Performed By: #### CP, MG, TROPI #### [address] [place] [address] Parts Assembler: DAVID Tranhloride [Moles/Vol]103 mmol/UQgvrkf12-646JypMary [facility] on above:Performed By: #### CP, MG, TROPI #### [address] [place] [address] Parts Assembler: Phillip Camarena MDCO2 [Moles/Vol]22 mmol/GKnltgo56-02Qqx [facility] on above:Performed By: #### CP, MG, TROPI #### [address] [place] [address] Parts Assembler: DAVID Tranreatinine [Mass/Vol]1.2 mg/dLHigh0.50-0.90[facility] on above:Performed By: #### CP, MG, TROPI #### [address] [place], [place] [address]83 Parts Assembler: Phillip Sturtz, MDGFR/1.73 sq M.predicted among non-blacks MDRD (S/P/Bld) [Vol rate/Area]57 mL/min/{1.73_m2}Low>60[facility] on above:Result Comment: These results are not [...] secretion.Performed By: #### CP, MG, TROPI #### [address] [place] [address] Parts Assembler: Phillip Camarena MDGlucose [Mass/Vol]233 mg/fTKopj18-87Zvm [facility] on above:Performed By: #### SAMIA, MG, TROPI #### [address] [place] [address] Parts Assembler: BENY Tranotassium [Moles/Vol]4.5 mmol/LNormal3.7-5.3Bon [facility] on above:Performed By: #### CP, MG, TROPI #### [address] [place], [place] [address]383 Parts Assembler: LAY Tranodium [Moles/Vol]139 mmol/JPwgivu356-951Ybx [facility] on above:Performed By: #### CP, MG, TROPI #### [address] [place] [address] Parts Assembler: Phillip Camarena MDUrea nitrogen [Mass/Vol]20 mg/dLNormal6-20Bon [facility] on above:Performed By: #### CP, MG, TROPI #### [address] [place], [facility]83 Parts Assembler: Phillip Camarena MDOtolaryngology Office/Clinic Noteon 06-10-2025 Otolaryngology [...] 30 EA, 0 Refill(s), (more content not included)...[facility] HospitalBasic Metabolic Profon 89-73-1122Gtfmz gap [Moles/Vol]15 mmol/LNormal9-16[facility] HospitalComment on above:Performed By: #### LDLDIR, LIPR #### [employer] [address] [place] [address] Parts Assembler: Melvin Santoyo MDBUN/CRE Hvuhi54Cavmar1-87Sifxz [facility] Comment on above:Performed By: #### LDLDIR, LIPR #### [employer] [address] [place] [address] Parts Assembler: DAVID Schultzalcium [Mass/Vol]9.9 mg/dLNormal8.6-10.4[facility] HospitalComment on above:Performed By: #### LDLDIR, LIPR #### [employer] [address] [place], [place] [address] Parts Assembler: DAVID Schultzhloride [Moles/Vol]102 mmol/LLoxqyd04-591Lvegh [facility] HospitalComment on above:Performed By: #### LDLDIR, LIPR #### [employer] [address] [place], [place] [address] Parts Assembler: Melvin Santoyo MDCO2 [Moles/Vol]21 mmol/JMtakpt01-57Jlrat [facility] HospitalComment on above:Performed By: #### LDLDIR, LIPR #### [employer] [address] [place], [place] [address] Parts Assembler: Melvin Santoyo MDCreatinine [Mass/Vol]1.2 mg/dLHigh0.50-0.90[facility] HospitalComment on above:Performed By: #### LDLDIR, LIPR #### [employer] [address] [place] [address] Parts Assembler: Melvin Santoyo MDGFR/1.73 sq M.predicted among non-blacks MDRD (S/P/Bld) [Vol rate/Area]56 mL/min/{1.73_m2}Low>60[facility] HospitalComment on above:Result Comment: These results are [...] tubular secretion.Performed By: #### LDLDIR LIPR #### [employer] [address] [place] [address] Parts Assembler: Melvin Santoyo MDGlucose [Mass/Vol]207 mg/fVGtem17-88Rmyxu [facility] HospitalComment on above:Performed By: #### AISHWARYA LIPR #### [employer] [address] [place] [address] Parts Assembler: BENY Schultzotassium [Moles/Vol]4.4 mmol/LNormal3.7-5.3 [facility] HospitalComment on above:Performed By: #### AISHWARYA LIPR #### [employer] [address] [place] [address] Parts Assembler: Melvin Santoyo MDSodium [Moles/Vol]138 mmol/SCwrtdq378-210Gturu [facility] HospitalComment on above:Performed By: #### LAKESHIADIVeda LIPR #### [employer] [address] [place] [address] Parts Assembler: Melvin Santoyo MDUrea nitrogen [Mass/Vol]22 mg/dLHigh6-20[facility] HospitalComment on above:Performed By: #### LAKESHIADIVeda LIPR #### [address] [address] Parts Assembler: Melvin Santoyo MDBrain Natri. Peptideon 38-97-6110Pqrrlkifugc peptide B (Bld) [Mass/Vol]95 pg/mLNormal0-125[facility] HospitalComment on above:Performed By: #### LDLDIR, LIPR #### [address] [address] Parts Assembler: DAVID SchultzBCmaría 57-92-0554Cunufcujzme distribution width (RBC) [Ratio]13.3 %Kutypg23.8-14.4[facility] HospitalComment on above: Performed By: #### LAKESHIADIVeda LIPR #### [address] [address] Parts Assembler: Melvin Santoyo MDHematocrit (Bld) [Volume fraction]38.8 %Normal 36.3-47.1[facility] HospitalComment on above:Performed By: #### LDLDIVeda, LIPR #### [address] [address] Parts Assembler: Melvin Santoyo MDHemoglobin (Bld) [Mass/Vol]12.4 g/dLNormal 11.9-15.1[facility] HospitalComment on above:Performed By: #### LDLDIVeda, LIPR #### [address] [address] Parts Assembler: KATHIE SchultzCH (RBC) [Entitic mass]31.0 rnAxxtoc53.2-33.5 [facility] HospitalComment on above:Performed By: #### LDLDIR, LIPR #### [address] [address] Parts Assembler: KATHIE SchultzCHC (RBC) [Mass/Vol]32.0 g/sFXfgkkm21.4-34.8 [facility] HospitalComment on above:Performed By: #### LDLDIR, LIPR #### [address] [address] Parts Assembler: KATHIE SchultzCV (RBC) [Entitic vol]97.0 fVZrhzbp78.6-102.9 [facility] HospitalComment on above:Performed By: #### LDLDIR, LIPR #### [address] [address] Parts Assembler: MAYDA Schultz Automated0.0 per 100 WBCNormal0.0[facility] HospitalComment on above:Performed By: #### LDLDIR, LIPR #### [address] [address] Parts Assembler: Dillon Schultztecory mean volume (Bld) [Entitic vol]9.8 fL Normal8.1-13.5[facility] Hospital - [facility] NorthComment on above:Performed By: #### LDLDIR, LIPR #### [address] [address] Parts Assembler: Dillon Schultztepedro (Bld) [#/Vol]364 10*3/gGXyhxqt677-751 [facility] HospitalComment on above:Performed By: #### LDLDIR, LIPR #### [address] [address] Parts Assembler: MANDEEP SchultzBC (Bld) [#/Vol]4.00 10*6/uLNormal3.95-5.11 [facility] HospitalComment on above:Performed By: #### LDLDIR, LIPR #### [address] [address] Parts Assembler: PING Schultz (Bld) [#/Vol]7.4 10*3/uLNormal3.5-11.3MKettering Health Main Campus HospitalComment on above:Performed By: #### LAKESHIADIR, LIPR #### [facility] [address] [place], [place] [address] Parts Assembler: Kinza Schultz Metab w/rfx MGon 91-46-2221Tvxha gap [Moles/Vol]12 mmol/LNormal9-16MerOhioHealth Hardin Memorial Hospital HospitalComment on above:Performed By: #### CP, MG, TROPI #### [address] [place] [address] Parts Assembler: Phillip Camarena MDBUN/CRE Epsik69Lens2-37OeggzSelect Medical Specialty Hospital - [facility] Comment on above:Performed By: #### CP, MG, TROPI #### [address] [place], [place] [address]83 Parts Assembler: DAVID Tranalcium [Mass/Vol]8.7 mg/dLNormal8.6-10.4MerOhioHealth Hardin Memorial Hospital HospitalComment on above:Performed By: #### CP, MG, TROPI #### [address] [place], [place] [address]83 Parts Assembler: DAVID Tranhloride [Moles/Vol]107 mmol/NBbtkta10-354Wgfcx [facility] HospitalComment on above:Performed By: #### CP, MG, TROPI #### [address] [place] [address] Parts Assembler: Phillip Camarena MDCO2 [Moles/Vol]20 mmol/ZFdgtqe85-11Kvzll [facility] HospitalComment on above:Performed By: #### CP, MG, TROPI #### [address] [place], [place] [address]483 Parts Assembler: Phillip Camarena MDCreatinine [Mass/Vol]1.1 mg/dLHigh0.50-0.90MerOhioHealth Hardin Memorial Hospital HospitalComment on above:Performed By: #### CP, MG, TROPI #### [address] [place] [address] Parts Assembler: Phillip Camarena MDGFR/1.73 sq M.predicted among non-blacks MDRD (S/P/Bld) [Vol rate/Area]59 mL/min/{1.73_m2}Low>60[facility] HospitalComment on above:Result Comment: These results are [...] secretion.Performed By: #### CP, MG, TROPI #### [address] [place] [address] Parts Assembler: Phillip Camarena MDGlucose [Mass/Vol]118 mg/rJPqcw17-99Awtuv [facility] HospitalComment on above:Performed By: #### CP, MG, TROPI #### [address] [place] [address] Parts Assembler: BENY Tranotassium [Moles/Vol]5.2 mmol/LNormal3.7-5.3M[address] hospitaly [facility] HospitalComment on above:Performed By: #### CP, MG, TROPI #### [address] [place] [address] Parts Assembler: Phillip Camarena MDSodium [Moles/Vol]139 mmol/YNgltcs194-329HlqvtSelect Medical Specialty Hospital - Cincinnati NorthComment on above:Performed By: #### CP, MG, TROPI #### [address] [place] [address] Parts Assembler: Phillip Camarena MDUrea nitrogen [Mass/Vol]33 mg/dLHigh6-20MerOhioHealth Hardin Memorial Hospital HospitalComment on above:Performed By: #### CP, MG, TROPI #### [facility] [address] [place] [address] Parts Assembler: Phillip Camarena MDSt. Vincent'S [facility] Metabolic Panel w/ Reflex to MGon 05-31-2025 Anion gap [Moles/Vol]12 mmol/L9 - 16 mmol/LBon SecAcadian Medical Center HealthCalcium [Mass/Vol]8.7 mg/dL8.6 - 10.4 mg/dLBon SecSwedish Medical Center EdmondsR&M Engineering HealthChloride [Moles/Vol] 107 mmol/L98 - 107 mmol/LBon Secours White HospitalCO2 [Moles/Vol]20 mmol/L20 - 31 mmol/LBon Wilson HealthCreatinine [Mass/Vol]1.1 mg/dLHigh0.50 - 0.90 mg/dLBon Kaiser Foundation HospitalR&M Engineering HealthEst, Glom Filt Zwza93Gdq- PINFBon Wilson HealthComment on above: These results are not intended [...] that affects renal tubular secretion. Glucose [Mass/Vol]118 mg/gQUbhd11 - 99 mg/dLBon [facility] Foundation HospitalShiny Media Interpretation and review of laboratory resultsAbnormalBon [facility] Potassium [Moles/Vol]5.2 mmol/L3.7 - 5.3 mmol/LBon SecUniversity Hospitals Geauga Medical CenterSodium [Moles/Vol]139 mmol/L136 - 145 mmol/LBon Wilson HealthUrea nitrogen [Mass/Vol]33 mg/dLHigh6 - 20 mg/dLBon Wilson HealthUrea nitrogen/Creatinine [Mass ratio]30 mg/mgHigh9 - 20Bon [facility] HealthBon Wilson HealthCBC auto differentialon 28-44-0969Qczaiemag (Bld) [#/Vol] 0.08 10*3/uLBon Kaiser Foundation HospitalR&M Engineering Memorial [facility] HospitalBasophils/100 WBC (Bld)1 %0 - 2 %Bon Wilson HealthEosinophils (Bld) [#/Vol]0.36 10*3/uLBon [facility] Eosinophils/100 WBC (Bld)5 %High1 - 4 %[facility] Hospital CenterErythrocyte distribution width (RBC) [Ratio]13.9 %11.8 - 14.4 %[facility] Hematocrit (Bld) [Volume fraction]35.1 %Low36.3 - 47.1 %[facility] Hemoglobin (Bld) [Mass/Vol]10.7 g/dLLow11.9 - 15.1 g/dLBon [facility] Immature granulocytes (Bld) [#/Vol]0.06 10*3/uLBon Wilson HealthImmature granulocytes/100 WBC (Bld)1 %Cfzk0HiuReston Hospital CenterInterpretation and review of laboratory resultsAbnormalReston Hospital CenterLymphocytes/100 WBC (Bld)50 %High24 - 43 %[facility] Hospital CenterLymphocytes/100 WBC (Bld)3.35 %[facility] CenterH (RBC) [Entitic mass]30.5 pg25.2 - 33.5 pgSouthern Virginia Regional Medical CenterHC (RBC) [Mass/Vol]30.5 g/dL28.4 - 34.8 g/dLBon Fostoria City HospitalV (RBC) [Entitic vol]100.0 fL82.6 - 102.9 fLReston Hospital Center Monocytes/100 WBC (Bld)8 %3 - 12 %[facility] CenterMonocytes/100 WBC (Bld)0.54 %[facility] CenterNeutrophils/100 WBC (Bld)35 %Low36 - 65 %[facility] CenterNucleated RBC/100 WBC (Bld) [Ratio]0.0 %0.0 per 100 WBCReston Hospital CenterPlatelet mean volume (Bld) [Entitic vol]9.6 fL8.1 - 13.5 fL [facility] Hospital CenterPlatelets (Bld) [#/Vol]328 10*3/uLBon Wilson HealthRBC (Bld) [#/Vol]3.51 10*6/uLLow3.95 - 5.11 m/uLBon [facility] Segmented neutrophils/100 WBC (Bld)2.38 %Bon Wilson HealthWBC other (Bld) [#/Vol]6.8Bon Wilson HealthBon Wilson HealthCBC with Diffon 25-65-9234Rwt. Basophil0.08 k/uLNormal0.00-0.20[facility] HospitalComment on above:Performed By: #### BMPX, CDP #### [address] [place] [address] Parts Assembler: MDAbs. ChelseaImm.Granulocyte0.06 k/uLNormal0.00-0.30MerOhioHealth Hardin Memorial Hospital HospitalComment on above:Performed By: #### BMPX, CDP #### [address] [place], [facility]83 Parts Assembler: Thao Tran.Neutrophil (Seg)2.38 k/uLNormal1.50-8.10MerOhioHealth Hardin Memorial Hospital HospitalComment on above:Performed By: #### BMPX, CDP #### [address] [place], [place] [address]83 Parts Assembler: Phillip Camarena MDBasophils/100 WBC (Bld)1 %Normal0-2[facility] HospitalComment on above:Performed By: #### BMPX, CDP #### [address] [place], [place] [address] Parts Assembler: Phillip Camarena MDEosinophils (Bld) [#/Vol]0.36 10*3/uLNormal 0.00-0.44MerOhioHealth Hardin Memorial Hospital HospitalComment on above:Performed By: #### BMPX, CDP #### [address] [place], [place] [address]3 Parts Assembler: MOLLY Tranosinophils/100 WBC (Bld)5 %High1-4[facility] HospitalComment on above:Performed By: #### BMPX, CDP #### [address] [place] [address] Parts Assembler: Phillip Camarena MDErythrocyte distribution width (RBC) [Ratio]13.9 % Evexnw25.8-14.4[facility] HospitalComment on above:Performed By: #### BMPX, CDP #### [address] [place] [address] Parts Assembler: Phillip Camarena MDHematocrit (Bld) [Volume fraction]35.1 %Low 36.3-47.1MercOhio State University Wexner Medical Center HospitalComment on above:Performed By: #### BMPX, CDP #### [address] [place] [address] Parts Assembler: Phillip Camarena MDHemoglobin (Bld) [Mass/Vol]10.7 g/dLLow11.9-15.1 [facility] NorthComment on above:Performed By: #### BMPX, CDP #### [address] [place] [address] Parts Assembler: Phillip Camarena MDImmature granulocytes/100 WBC (Bld)1 %Veiw6AtcvbSelect Medical Specialty Hospital - Cincinnati NorthComment on above:Performed By: #### BMPX, CDP #### [address] [place], [facility]83 Parts Assembler: Phillip Camarena MDLymphocytes (Bld) [#/Vol]3.35 10*3/uLNormal 1.10-3.70[facility] NorthComment on above:Performed By: #### BMPX, CDP #### [address] [place], [place] [address] Parts Assembler: Diego Tranmphocytes/100 WBC (Bld)50 %Zefb43-13VlcgsSelect Medical Specialty Hospital - Cincinnati NorthComment on above:Performed By: #### BMPX, CDP #### [address] [place] [address] Parts Assembler: KATHIE TranCH (RBC) [Entitic mass]30.5 blZbneub92.2-33.5 [facility] NorthComment on above:Performed By: #### BMPX, CDP #### [address] [place] [address] Parts Assembler: KATHIE TranCHC (RBC) [Mass/Vol]30.5 g/rKYaliiu86.4-34.8[facility] NorthComment on above:Performed By: #### BMPX, CDP #### [address] [place] [address] Parts Assembler: KATHIE TranCV (RBC) [Entitic vol]100.0 aQZvflei43.6-102.9 [facility] NorthComment on above:Performed By: #### BMPX, CDP #### [address] [place] [address] Parts Assembler: KATHIE Tranonocytes (Bld) [#/Vol]0.54 10*3/uLNormal0.10-1.20 [facility] NorthComment on above:Performed By: #### BMPX, CDP #### [address] [place] [address] Parts Assembler: KATHIE Tranonocytes/100 WBC (Bld)8 %Normal3-12[facility] NorthComment on above:Performed By: #### BMPX, CDP #### [address] [place], [place] [address]383 Parts Assembler: Phillip Camarena MDNeutrophil (Seg)35 %Wlu28-64HekpjSelect Medical Specialty Hospital - [facility] North Comment on above:Performed By: #### BMPX, CDP #### [address] [place] [address] Parts Assembler: MAYDA Tran Automated0.0 per 100 WBCNormal0.0[facility] NorthComment on above:Performed By: #### BMPX, CDP #### [address] [place] [address] Parts Assembler: Mady Tran mean volume (Bld) [Entitic vol]9.6 fL Normal8.1-13.5[facility] - [facility] NorthComment on above:Performed By: #### BMPX, CDP #### [address] [place] [address] Parts Assembler: Daly Tran (Bld) [#/Vol]328 10*3/lEDqcsnf618-282 [facility] NorthComment on above:Performed By: #### BMPX, CDP #### [address] [place] [address] Parts Assembler: MARY Tran (Bld) [#/Vol]3.51 10*6/uLLow3.95-5.11[facility] NorthComment on above:Performed By: #### BMPX, CDP #### [address] [place] [address] Parts Assembler: PING Tran (Bld) [#/Vol]6.8 10*3/uLNormal3.5-11.3MMercy Health Urbana HospitalComment on above:Performed By: #### BMPX, CDP #### [address] [place], [place] [address] Parts Assembler: Iliana Tran 93-84-3811WF [Catalytic activity/Vol]242 U/L High26 - 192 U/LBon SecUniversity Hospitals Geauga Medical CenterInterpretation and review of laboratory resultsAbSt. Michael's HospitalCreatine Kinaseon 30-58-7168EX [Catalytic activity/Vol]242 U/BGzaa28-529SsarbSelect Medical Specialty Hospital - [facility] North Comment on above:Performed By: #### SAMIA, VLADIMIR NAVARRETE #### [facility] [address] [place] [address] Parts Assembler: PATI Tran Rhythm Stripon 06-65-4226GZESZELYRIA MEMORIAL HOSPITAL LABReston Hospital CenterGlucose, Whole Bloodon 42-62-4860Tjmmaeq [Mass/Vol]233 mg/oTIqig68 - 100 mg/dLBon Wilson HealthInterpretation and review of laboratory resultsAbSt. Michael's HospitalGlucose [Mass/Vol]233 mg/vXPsub91-496KpjvbSelect Medical Specialty Hospital - Cincinnati NorthGlucose [Mass/Vol]124 mg/jXPcqb34 - 100 mg/dLBCarilion Roanoke Community HospitalInterpretation and review of laboratory resultsAbSt. Michael's HospitalGlucose [Mass/Vol]124 mg/fDLnju15-867CknbiSelect Medical Specialty Hospital - Cincinnati NorthUS Kidneyon 84-77-7574Szsfiagrj renal parenchyma echogenicity bilaterally suggestive of chronic medical renal disease. [facility] CONSOLIDATEDEXAMINATION: RETROPERITONEAL ULTRASOUND OF THE KIDNEYS AND [...] volume 325 cc, postvoid volume 5 cc [facility] RIS Brock Michael DO - 05/31/2025 EXAMINATION: [...] bilaterally suggestive of chronic medical renal disease. [facility] ChirpVisionRadiology Study observation (narrative)[facility] [email or web address] KidneyOrdered By: Brock Narvaez on 40-20-5061Hen Arizona State HospitalViaziz Scam Work Phone: us RENAL COMPLETEon 35-25-2513LD RENAL COMPLETE EXAMINATION: RETROPERITONEAL ULTRASOUND OF THE [...] 05/31/25 Final resultNormalSelect Medical Specialty Hospital - Cincinnati NorthBasic Metab w/rfx MGon 80-93-4614Hkpuj gap [Moles/Vol]14 mmol/LNormal9-16[facility] NorthComment on above: Performed By: #### JANE NEFF #### [employer] [address] [place] [address] Parts Assembler: Melvin Santoyo MDBUN/CRE Pclqd49Vilwal3-07Tdsqq [facility] Comment on above:Performed By: #### LDLDIR, LIPR #### [facility] [address] [place] [address] Parts Assembler: DAVID Schultzalcium [Mass/Vol]8.5 mg/dLLow8.6-10.4MerOhioHealth Hardin Memorial Hospital HospitalComment on above:Performed By: #### LDLDIR, LIPR #### [facility] [address] [place] [address] Parts Assembler: Melvin Santoyo MDChloride [Moles/Vol]104 mmol/ZWvfemf02-017Huwmk [facility] HospitalComment on above:Performed By: #### LDLDIR, LIPR #### [facility] [address] [place] [address] Parts Assembler: Melvin Santoyo MDCO2 [Moles/Vol]23 mmol/EUpjkdt48-21Cguav [facility] HospitalComment on above:Performed By: #### LDLDIR, LIPR #### [facility] [address] [place] [address] Parts Assembler: DAVID Schultzreatinine [Mass/Vol]2.4 mg/dLHigh0.50-0.90[facility] HospitalComment on above:Performed By: #### LDLDIR, LIPR #### [facility] [employer] [address] [place] [address] Parts Assembler: Melvin Santoyo MDGFR/1.73 sq M.predicted among non-blacks MDRD (S/P/Bld) [Vol rate/Area]24 mL/min/{1.73_m2}Low>60[facility] HospitalComment on above:Result Comment: These results are [...] tubular secretion.Performed By: #### LDLDIR, LIPR #### [facility] HospitalTeranode [facility] [place] [address] Parts Assembler: Melvin Santoyo MDGlucose [Mass/Vol]247 mg/lPBuik87-77Adlzx [facility] HospitalComment on above:Performed By: #### LDLDIR, LIPR #### [address] [address] Parts Assembler: BENY Schultzotassium [Moles/Vol]4.7 mmol/LNormal3.7-5.3 [facility] HospitalComment on above:Performed By: #### LDLDIR, LIPR #### [facility] [employer] [address] [place] [address] Parts Assembler: LAY Schultzodium [Moles/Vol]141 mmol/KOjttbo421-175QunhpSelect Medical Specialty Hospital - Cincinnati NorthComment on above:Performed By: #### LDLDIR, LIPR #### [facility] [employer] [address] [place] [address] Parts Assembler: Melvin Santoyo MDUrea nitrogen [Mass/Vol]48 mg/dLHigh6-20[facility] NorthComment on above:Performed By: #### LDLDIR, LIPR #### [address] [address] Parts Assembler: Melvin Santoyo MDBapaintsville arh hospital Metabolic Panel w/ Reflex to MGon 22-31-8064Uwjdq gap [Moles/Vol]14 mmol/L9 - 16 mmol/LBon SecUniversity Hospitals [facility] Calcium [Mass/Vol]8.5 mg/dLLow8.6 - 10.4 mg/dLBon [facility] HealthChloride [Moles/Vol]104 mmol/L98 - 107 mmol/LBon Secours White HospitalCO2 [Moles/Vol]23 mmol/L20 - 31 mmol/LBon Secours White HospitalCreatinine [Mass/Vol]2.4 mg/dLHigh 0.50 - 0.90 mg/dLBon Secours White HospitalEst, Glom Filt Vzif79Xas- PINFBon Wilson HealthComment on above: These results are not intended [...] that affects renal tubular secretion. Glucose [Mass/Vol]247 mg/vBLkir91 - 99 mg/dLBon [facility] Interpretation and review of laboratory resultsAbnormLewisGale Hospital Alleghany Potassium [Moles/Vol]4.7 mmol/L3.7 - 5.3 mmol/LBon [facility] HealthSodium [Moles/Vol]141 mmol/L136 - 145 mmol/LBon [facility] HealthUrea nitrogen [Mass/Vol]48 mg/dLHigh6 - 20 mg/dLBon Wilson HealthUrea nitrogen/Creatinine [Mass ratio]20 mg/mg9 - 20Bon [facility] ServicesCBC auto differentialon [id number] (Bld) [#/Vol] 0.09 10*3/uLBon Wilson HealthBasophils/100 WBC (Bld)1 %0 - 2 %[facility] CenterEosinophils (Bld) [#/Vol]0.32 10*3/uLBon [facility] Eosinophils/100 WBC (Bld)5 %High1 - 4 %[facility] CenterErythrocyte distribution width (RBC) [Ratio]14.0 %11.8 - 14.4 %[facility] Hematocrit (Bld) [Volume fraction]34.3 %Low36.3 - 47.1 %[facility] Hemoglobin (Bld) [Mass/Vol]10.7 g/dLLow11.9 - 15.1 g/dLBon [facility] Immature granulocytes (Bld) [#/Vol]0.08 10*3/uLBon Wilson HealthImmature granulocytes/100 WBC (Bld)1 %Rsdv6Vue Wilson HealthInterpretation and review of laboratory resultsAbnormLewisGale Hospital AlleghanyLymphocytes/100 WBC (Bld)46 %High24 - 43 %Bon SecUniversity [facility]als [facility]auga Medical CenterLymphocytes/100 WBC (Bld)3.14 %[facility] CenterH (RBC) [Entitic mass]30.7 pg25.2 - 33.5 pgBon [facility]ostoria City HospitalHC (RBC) [Mass/Vol]31.2 g/dL28.4 - 34.8 g/dLBon SecBrown Memorial HospitalV (RBC) [Entitic vol]98.6 fL82.6 - 102.9 fLBon [facility] Monocytes/100 WBC (Bld)9 %3 - 12 %[facility] CenterMonocytes/100 WBC (Bld)0.57 %[facility] CenterNeutrophils/100 WBC (Bld)38 %36 - 65 %Bon [facility] HealthNucleated RBC/100 WBC (Bld) [Ratio]0.0 %0.0 per 100 WBCBon Wilson HealthPlatelet mean volume (Bld) [Entitic vol]10.0 fL8.1 - 13.5 fL [facility] HealthPlatelets (Bld) [#/Vol]339 10*3/uLBon Wilson HealthRBC (Bld) [#/Vol]3.48 10*6/uLLow3.95 - 5.11 m/uLReston Hospital Center Segmented neutrophils/100 WBC (Bld)2.52 %[facility] CenterWBC other (Bld) [#/Vol]6.7Bon SecAsc[facility] Franklin CampusCBC with Diffon [id number]. Basophil0.09 k/uLNormal0.00-0.20Mer[facility] Solsberry HospitalComment on above:Performed By: #### LDLDIR, LIPR #### [employer] [address] [id number] Parts Assembler: Thao Schultz.Imm.Granulocyte0.08 k/uLNormal0.00-0.30Mer[facility] Solsberry HospitalComment on above:Performed By: #### LDLDIR, LIPR #### [employer] [address] [place] [address] Parts Assembler: Thao Schultz.Neutrophil (Seg)2.52 k/uLNormal1.50-8.10 [facility] HospitalComment on above:Performed By: #### LDLDIR, LIPR #### [address] [address] Parts Assembler: Melvin Santoyo MDBasophils/100 WBC (Bld)1 %Normal0-2Mer[facility] Solsberry HospitalComment on above:Performed By: #### LDLDIVeda, LIPR #### [place] [address] Parts Assembler: Melvin Santoyo MDEosinophils (Bld) [#/Vol]0.32 10*3/uLNormal 0.00-0.44[facility] HospitalComment on above:Performed By: #### LAKESHIADIVeda, LIPR #### [address] [address] Parts Assembler: MOLLY Schultzosinophils/100 WBC (Bld)5 %High1-4MerOhioHealth Hardin Memorial Hospital HospitalComment on above:Performed By: #### LDLDIVeda, LIPR #### [place] [address] Parts Assembler: Melvin Santoyo MDErythrocyte distribution width (RBC) [Ratio]14.0 %Zmverj72.8-14.4Wayne Hospitalcy Solsberry HospitalComment on above:Performed By: #### LDLDIVeda, LIPR #### [place] [address] Parts Assembler: Melvin Santoyo MDHematocrit (Bld) [Volume fraction]34.3 %Low 36.3-47.1Mer[facility] Solsberry HospitalComment on above:Performed By: #### LDLDIVeda, LIPR #### [facility] [employer] [address] [place] [address] Parts Assembler: Melvin Santoyo MDHemoglobin (Bld) [Mass/Vol]10.7 g/dLLow11.9-15.1 [facility] HospitalComment on above:Performed By: #### LDLDIR, LIPR #### [address] [address] Parts Assembler: Cornelio Schultzmature granulocytes/100 WBC (Bld)1 %Xpmp2UvgakWood County Hospital HospitalComment on above:Performed By: #### LDLDIR, LIPR #### [address] [address] Parts Assembler: Melvin Santoyo MDLymphocytes (Bld) [#/Vol]3.14 10*3/uLNormal 1.10-3.70[facility] HospitalComment on above:Performed By: #### LDLDIR, LIPR #### [address] [address] Parts Assembler: Diego Schultzmphocytes/100 WBC (Bld)46 %Zmov49-51Oroas Tiffin HospitalComment on above:Performed By: #### LDLDIR, LIPR #### [facility] [employer] [address] [place] [address] Parts Assembler: KATHIE SchultzCH (RBC) [Entitic mass]30.7 jgKaisni42.2-33.5 [facility] HospitalComment on above:Performed By: #### LDLDIR, LIPR #### [facility] [employer] [address] [place] [address] Parts Assembler: KATHIE SchultzCHC (RBC) [Mass/Vol]31.2 g/pFTiwrpf71.4-34.8 [facility] HospitalComment on above:Performed By: #### LDLDIR, LIPR #### [facility] [employer] [address] [place] [address] Parts Assembler: KATHIE SchultzCV (RBC) [Entitic vol]98.6 kYWlxobs41.6-102.9 [facility] HospitalComment on above:Performed By: #### LDLDIVeda, LIPR #### [address] [address] Parts Assembler: KATHIE Schultzonocytes (Bld) [#/Vol]0.57 10*3/uLNormal 0.10-1.20[facility] HospitalComment on above:Performed By: #### LDLDIVeda, LIPR #### [address] [address] Parts Assembler: KATHIE Schultzonocytes/100 WBC (Bld)9 %Normal3-12[facility] HospitalComment on above:Performed By: #### LDLDIVeda, LIPR #### [address] [address] Parts Assembler: Melvin Santoyo MDNeutrophil (Seg)38 %Seqttd16-95Jalre Tiffin HospitalComment on above:Performed By: #### LDLDIVeda, LIPR #### [address] [address] Parts Assembler: Melvin Santoyo MDNRBC Automated0.0 per 100 WBCNormal0.0Wayne Hospitalcy Solsberry HospitalComment on above:Performed By: #### LDLDIR, LIPR #### [address] [address] Parts Assembler: BEYN Schultzlatelet mean volume (Bld) [Entitic vol]10.0 fL Normal8.1-13.5[facility] HospitalComment on above:Performed By: #### LDLDIR, LIPR #### [address] [address] Parts Assembler: BENY Schultzlatelets (Bld) [#/Vol]339 10*3/vOBhjwbo878-999 [facility] HospitalComment on above:Performed By: #### LDLDIR, LIPR #### [employer] [address] [place] [address] Parts Assembler: Melvin Santoyo [facility] ([facility]) [#/Vol]3.48 10*6/uLLow3.95-5.11[facility] HospitalComment on above:Performed By: #### LDLDIR, LIPR #### [facility] [address] [place] [address] Parts Assembler: Melvin Santoyo MDSUNY [facility]STATE [facility] ([facility]) [#/Vol]6.7 10*3/uLNormal3.5-11.3MKettering Health Main Campus HospitalComment on above:Performed By: #### LDLDIR, LIPR #### [employer] [address] [place] [address] Parts Assembler: Melvin Santoyo JD [facility] CHILDREN – NORMANardiac echo study Procedureon [id number] Sinus Valsalva2.6 cmBon Secours Mercy HealthAortic Sinus Valsalva Index1.21 cm/m2Bon [facility] Mercy HealthAV Cusp Mmode1.5 cmBon Secours Mercy HealthAV Mean Dqbaeqle5bbOmQzs Secours Mercy HealthAV Mean Velocity1.2 m/sBon Secours Mercy HealthAV Peak Nupzpuhc85dlAeNjy Secours Mercy HealthAV Peak Velocity1.8 m/sBon Secours Mercy HealthAV Velocity Ratio0.78Bon [facility] Mercy HealthAV VTI31.9 cm [facility] HealthBody surface area Derived from formula2.22 m2Bon [facility] Mercy HealthE/E' Mxpbfai45.92[facility]cy HealthEF BP68 %55 - 100 %[facility] HealthEF Vdqhqxnvl94 %[facility] HealthEst. RA Pressure3 mmHgBon [...] 52 mLBon Secours Mercy HealthLV E' Lateral Bovpsvgu74.40 cm/sBon Secours Mercy HealthLV EDV A2C72 mLBon [...] A4C13 mL/m2Bon [facility] Mercy HealthLV Mass 2D205.5 nIwkzespa04 - 162 gBon Secours Mercy HealthLV Mass 2D Index96.0 g/n7Cndqkbmc72 - 95 g/m2Bon [facility] Mercy HealthLV RWT Ratio0.36Bon [facility] Mer[facility] HealthLVIDd5.6 cmAbnormal3.9 - 5.3 cmBon Secours Mercy HealthLVIDd Index 2.62 cm/m2[facility] HealthLVIDs3.5 cmBon Secours Mercy HealthLVIDs Index 1.64 cm/m2Bon [facility] HealthLVOT Mean Fhroxsuo2wmTzEwa Secours Mercy HealthLVOT Peak Xlwqadlj3qpCaJha Secours Mercy HealthLVOT Peak Velocity1.4 m/s Bon [facility] Mercy HealthLVOT VTI26.5 cmBon Sec360Guanxi Memorial Health System Selby General HospitalShiny MediaLVOT:AV VTI Index 0.83[facility] Sec360Gu[facility] HospitalShiny MediaLVPWd1.0 cmAbnormal0.6 - 0.9 cmLifepoint Hospitals360Guan[facility] HospitalShiny MediaMV A Velocity1.04 m/sBon Secours [facility] HospitalShiny MediaMV E Velocity1.24 m/sBon Secours [facility] HospitalShiny MediaMV E Wave Deceleration Scbj672.0 msLifepoint Hospitals360Guan[facility] HospitalShiny Media MV E/A1.19[facility] HospitalShiny MediaPV Max Velocity1.1 m/sBon Secours [facility] HospitalShiny Media PV Peak Nyufxfyi6mpRpOzf [facility] HospitalShiny MediaKiwqbbJWMA78rjLkZmb [facility] Farman Sinotubular Junction2.3 cmBon Secours [facility] System Selby General HospitalR&M Engineering HealthTAPSE2.2 cm1.7 cmCopper Springs East Hospital Sec360Guan[facility] HospitalShiny MediaTR Max Velocity2.51 m/sBon Secours [facility] General HospitalShiny MediaTR Peak Vexsqnif25 mmHgLifepoint Hospitals360Guanxi Memorial [facility] Selby General HospitalShiny MediaLeft Ventricle: Normal left ventricular systolic function with [...] quality: adequate. No contrast was given.BSMH CV CPACSCumberland HospitalR&M Engineering HealthRadiology Study observation (narrative)Bon [facility] Metabolic Profon [id number] [Mass/Vol]4.0 g/dLNormal3.5-5.2Mer[facility] Solsberry HospitalComment on above:Performed By: #### CP, MG, TROPI #### [address] [place], [place] [address]83 Parts Assembler: Phillip Camarena MDAlbumin/Glob Ratio1.0Lmjnte4.0-2.5Mercy Solsberry HospitalComment on above:Performed By: #### CP, MG, TROPI #### [address] [place] [address] Parts Assembler: Rylie Trankaline Phos80 U/VEjkgby98-850Lazhf Tiffin HospitalComment on above:Performed By: #### CP, MG, TROPI #### [address] [place] [address] Parts Assembler: Phillip Camarena MDALT [Catalytic activity/Vol]24 U/LCkcyth31-24Zjbjo Tiffin HospitalComment on above:Performed By: #### CP, MG, TROPI #### [address] [place] [address] Parts Assembler: Les Tran gap [Moles/Vol]13 mmol/LNormal9-16[facility] HospitalComment on above:Performed By: #### CP, MG, TROPI #### [address] [place] [address] Parts Assembler: Phillip Camarena MDAST [Catalytic activity/Vol]25 U/EWhtskg14-34Dnxvp T[facility]in HospitalComment on above:Performed By: #### CP, MG, TROPI #### [address] [place], [place] [id number] Parts Assembler: Phillip Sturtz, MDBilirubin [Mass/Vol]mg/dLNormal0.00-1.20[facility] NorthComment on above:Performed By: #### CP, MG, TROPI #### [address] [place] [address] Parts Assembler: Phillip Camarena MDBUN/CRE Yxcmq28Cxnpis7-47Jlzpo [facility] Comment on above:Performed By: #### CP, MG, TROPI #### [address] [place] [address] Parts Assembler: DAVID Tranalcium [Mass/Vol]8.9 mg/dLNormal8.6-10.4[facility] NorthComment on above:Performed By: #### CP, MG, TROPI #### [address] [place], [facility]83 Parts Assembler: DAVID Tranhloride [Moles/Vol]103 mmol/WRufelk91-452Grsfo T[facility]in HospitalComment on above:Performed By: #### CP, MG, TROPI #### [address] [place] [address] Parts Assembler: Phillip Camarena MDCO2 [Moles/Vol]22 mmol/IWlgchc94-22JadieSelect Medical Specialty Hospital - Cincinnati NorthComment on above:Performed By: #### CP, MG, TROPI #### [address] [place] [address] Parts Assembler: DAVID Tranreatinine [Mass/Vol]2.9 mg/dLHigh0.50-0.90[facility] NorthComment on above:Performed By: #### CP, MG, TROPI #### [address] [place] [address] Parts Assembler: Phillip Camarena MDGFR/1.73 sq M.predicted among non-blacks MDRD (S/P/Bld) [Vol rate/Area]19 mL/min/{1.73_m2}Low>60MerSt. Vincent's Medical CenterComment on above:Result Comment: These results are not [...] secretion.Performed By: #### CP, MG, TROPI #### [address] [place] [address] Parts Assembler: Phillip Camarena MDGlucose [Mass/Vol]233 mg/rWDmsf95-22VdkftMercy Health Urbana HospitalComment on above:Performed By: #### CP, MG, TROPI #### [address] [place] [address] Parts Assembler: BENY Tranotassium [Moles/Vol]5.3 mmol/LNormal3.7-5.3Mwil[address] hospitaly Solsberry HospitalComment on above:Performed By: #### CP, MG, TROPI #### [address] [place] [address] Parts Assembler: Phillip Camarena MDProtein [Mass/Vol]6.9 g/dLNormal6.6-8.7[facility] NorthComment on above:Performed By: #### CP, MG, TROPI #### [address] [place] [address] Parts Assembler: Phillip Camarena MDSodium [Moles/Vol]138 mmol/IGeutps988-666Xbvcb Tiffin HospitalComment on above:Performed By: #### CP, MG, TROPI #### [address] [place] [address] Parts Assembler: Phillip Camarena MDUrea nitrogen [Mass/Vol]49 mg/dLHigh6-20MerSt. Vincent's Medical CenterComment on above:Performed By: #### MG GRACIA TROPI #### [facility] [address] [place] [address] Parts Assembler: Phillip Camarena JD [facility] CHILDREN – NORMANomprehensive Metabolic Panelon [id number] [Mass/Vol]4.0 g/dL3.5 - 5.2 g/dLBon Wilson HealthAlbumin/Globulin [Mass ratio]1.4 {ratio}1.0 - 2.5Bon [facility]Ac[facility] HealthALP [Catalytic activity/Vol]80 U/L35 - 104 U/LBon SecAcadian Medical Center HealthALT [Catalytic activity/Vol]24 U/L10 - 35 U/LBon SecUniversity Hospitals Geauga Medical CenterAnion gap [Moles/Vol]13 mmol/L9 - 16 mmol/LBon [facility] HealthAST [Catalytic activity/Vol]25 U/L10 - 35 U/LBon Wilson HealthBilirubin [Mass/Vol]mg/dL0.00 - 1.20 mg/dLBon [facility] Calcium [Mass/Vol]8.9 mg/dL8.6 - 10.4 mg/dLBon Wilson HealthChloride [Moles/Vol]103 mmol/L98 - 107 mmol/LBon [facility] HealthCO2 [Moles/Vol]22 mmol/L20 - 31 mmol/LBon [facility] HealthCreatinine [Mass/Vol]2.9 mg/dLHigh 0.50 - 0.90 mg/dLBon Wilson HealthEst, Glom Filt Taze67Tbg- PINFBon Wilson HealthComment on above: These results are not intended [...] that affects renal tubular secretion. Glucose [Mass/Vol]233 mg/nCDdfb32 - 99 mg/dLBon [facility] HealthPotassium [Moles/Vol]5.3 mmol/L3.7 - 5.3 mmol/LBon [facility] HealthProtein [Mass/Vol] 6.9 g/dL6.6 - 8.7 g/dLBon Wilson HealthSodium [Moles/Vol]138 mmol/L136 - 145 mmol/LBon Wilson HealthUrea nitrogen [Mass/Vol]49 mg/dLHigh6 - 20 mg/dLBon Wilson HealthUrea nitrogen/Creatinine [Mass ratio]17 mg/mg9 - 20 Bon [facility] HealthEKG 12 Leadon 05-48-2016Jetqdz Koka78AVPMyz [facility] HealthP Exsm36amneljiGlwSovah Health - Danville HealthP-R Xzpauzza231 msReston Hospital CenterQ-T Xdzpgpzz239 [facility] HospitalQRS Fjzwqhgp08 msReston Hospital CenterQTc Calculation (Bazett)459 [facility] HospitalR [place] 13degreesSovah Health - Danville HealthT Qvle96lzjarpqCauLake Taylor Transitional Care Hospital Ventricular Bgpu57JPDSzc Wilson HealthNormal sinus rhythm Normal ECG ECG not diagnostic for Acute Coronary Syndrome; consider clinical findings When compared with ECG of 16-Jun-2023 17:48, No significant change was found Confirmed by Nathan Ardon ([id number]) on 05/30/2025 8:20:27 AMCHI Memorial Hospital GeorgiaNathan salmeron MD - 05/30/2025 Normal sinus rhythm Normal ECG ECG not diagnostic for Acute Coronary Syndrome; consider clinical findings When compared with ECG of 16-Jun-2023 17:48, No significant change was found Confirmed by Nathan Ardon ([id number]) on 05/30/2025 8:20:27 AM Bon [facility] Health ServicesEKG Rhythm Stripon 05-30-2025 [facility] HospitalGlucose, Whole Bloodon 95-65-7585Hlijtuq [Mass/Vol]165 mg/pLQdmq01 - 100 mg/dLBon Wilson HealthInterpretation and review of laboratory resultsAbnormalBon [facility] Health ServicesGlucose [Mass/Vol]165 mg/bVNqcf38-220Nsjsp Tiffin HospitalGlucose [Mass/Vol]153 mg/uYHbjt87 - 100 mg/dLBon Wilson HealthInterpretation and review of laboratory resultsAbnormalSentara RMH Medical CenterGlucose [Mass/Vol]153 mg/tZJjcn84-016Zknmc T[facility]in HospitalGlucose [Mass/Vol]271 mg/gDYfdu95 - 100 mg/dLBon Wilson HealthInterpretation and review of laboratory resultsAbnormHenrico Doctors' Hospital—Parham CampusGlucose [Mass/Vol]271 mg/eGIplp03-426Zgazf T[facility]in HospitalGlucose [Mass/Vol]259 mg/cFLztt54 - 100 mg/dLBon Wilson HealthInterpretation and review of laboratory resultsAbnoMid Dakota Medical CenterGlucose [Mass/Vol]259 mg/yRDchq21-246MyqaqSelect Medical Specialty Hospital - Cincinnati NorthMagnesiumon [id number] [Mass/Vol]2.5 mg/dL1.6 - 2.6 mg/dLBon [facility] Magnesium [Mass/Vol]2.5 mg/dLNormal1.6-2.6MercConnecticut Children's Medical CenterComment on above: Performed By: #### CP, MG, TROPI #### [facility] [address] [place] [address] Parts Assembler: Vikas Tran Panel Informationon [id number] and review of laboratory resultsAbSt. Michael's HospitalSpecimen Rejectionon [id number] for rejectionUnable to perform testing: Specimen hemolyzed.[place] [facility] Memorial HospitalComment on above: Performed By: #### LDLDIR, LIPR #### [employer] [address] [place] [address] Parts Assembler: Kiya Schultz of sample.BLOODNoParkwood HospitalComment on above:Performed By: #### LDLDIR, LIPR #### [facility] [employer] [facility] [place], [place] [id number] Parts Assembler: Melita Schultz orderedCP MG TROPINormalSelect Medical Specialty Hospital - Cincinnati NorthComment on above:Performed By: #### JANE NEFF #### [address] [place], [place] [address] Parts Assembler: Dian Schultz [id number] and review of laboratory resultsAbnormalWellmont Health Systemoponin I.cardiac High sensitivity method [Mass/Vol]28 ng/LHigh0 - 14 ng/LBon [facility] Comment on above:High Sensitivity Troponin values cannot be compared with other Troponin methodologies.Bon [facility] Hospitaloponin, High Sens28 ng/LHigh 0-14[facility] NorthComcorewell health will[facility] on above:Result Comment: High Sensitivity Troponin values cannot be compared with other Troponin methodologies.Performed By: #### JANE NEFF #### [address] [id number] Parts Assembler: Steve Schultz I.cardiac High sensitivity method [Mass/Vol]31 ng/LHigh0 - 14 ng/LBon Wilson HealthComment on above:High Sensitivity Troponin values cannot be compared with other Troponin methodologies.Troponin, High Sens31 ng/LHigh0-14[facility] NorthComcorewell health william [facility] on above:Result Comment: High Sensitivity Troponin values cannot be compared with other Troponin methodologies.Performed By: #### CP, MG, TROPI #### [facility] [address] [place] [address] [place] [address] Parts Assembler: BRII Tran CHEST (2 VW)on [id number] CHEST (2 VW) EXAMINATION: TWO XRAY VIEWS [...] Signed by: Bartolome Stewart MD 05/30/25 Final resultNormDiley Ridge Medical CenterXR Chest 2 Viewson [id number] acute cardiopulmonary process. [facility] CONSOLIDATEDEXAMINATION: TWO XRAY VIEWS OF THE CHEST 05/29/2025 11:32 pm COMPARISON: 12/07/2023 HISTORY: ORDERING SYSTEM PROVIDED HISTORY: lightheaded TECHNOLOGIST PROVIDED HISTORY: lightheaded FINDINGS: There are dense breast shadows. The lungs are clear on the lateral image. No confluent airspace disease, pneumothorax or pleural fluid. Heart size and configuration are normal. No acute bone finding. [facility] LAURAWeBartolome solitario MD - 05/30/2025 EXAMINATION: TWO [...] bone finding. IMPRESSION: No acute cardiopulmonary process. [facility] GlycoVaxyn [facility] HospitalXR Chest 2 ViewsOrdered By: Bartolome Stewart on [id number] [facility]360[facility] Work Phone: cbc with Auto Differentialon [id number] (Bld) [#/Vol]0.10 10*3/uLReston Hospital CenterBasophils/100 WBC (Bld)1 %0 - 2 %[facility] CenterEosinophils (Bld) [#/Vol]0.40 10*3/uLBon [facility]360Guanxi White HospitalEosinophils/100 WBC (Bld)5 %High1 - 4 %Lifepoint HospitalsBarosense FarmanErythrocyte distribution width (RBC) [Ratio]13.9 %11.8 - 14.4 %[facility]360[facility] Hematocrit (Bld) [Volume fraction]35.3 %Low36.3 - 47.1 %Lifepoint HospitalsUniversity Hospitals Geauga Medical Center Hemoglobin (Bld) [Mass/Vol]11.5 g/dLLow11.9 - 15.1 g/dLBon [facility] Immature granulocytes (Bld) [#/Vol]0.14 10*3/uLBon Wilson HealthImmature granulocytes/100 WBC (Bld)2 %Iyka3Fbg Wilson HealthInterpretation and review of laboratory resultsAbnormalBon Wilson HealthLymphocytes/100 WBC (Bld)37 %24 - 43 %[facility] Hospital CenterLymphocytes/100 WBC (Bld)2.89 %[facility] CenterH (RBC) [Entitic mass]31.6 pg25.2 - 33.5 pgSouthern Virginia Regional Medical CenterHC (RBC) [Mass/Vol]32.6 g/dL28.4 - 34.8 g/dLBon Fostoria City HospitalV (RBC) [Entitic vol]97.0 fL82.6 - 102.9 fLReston Hospital Center Monocytes/100 WBC (Bld)10 %3 - 12 %[facility] CenterMonocytes/100 WBC (Bld)0.79 %[facility] CenterNeutrophils/100 WBC (Bld)45 %36 - 65 %[facility] CenterNucleated RBC/100 WBC (Bld) [Ratio]0.0 %0.0 per 100 WBCReston Hospital CenterPlatelet mean volume (Bld) [Entitic vol]9.9 fL8.1 - 13.5 fL [facility] CenterPlatelets (Bld) [#/Vol]379 10*3/uLBon Wilson HealthRBC (Bld) [#/Vol]3.64 10*6/uLLow3.95 - 5.11 m/uLReston Hospital Center Segmented neutrophils/100 WBC (Bld)3.50 %[facility] Hospital CenterWBC other (Bld) [#/Vol]7.8Bon [facility] Health ServicesCBC with Diffon [id number]. Basophil0.10 k/uLNormal0.00-0.20MerSt. Vincent's Medical CenterComment on above:Performed By: #### LDLDIVeda, LIPR #### [address] [address] Parts Assembler: MDAbs. MarionImm.Granulocyte0.14 k/uLNormal0.00-0.30[facility] HospitalComment on above:Performed By: #### AISHWARYA, LIPR #### [place] [address] Parts Assembler: Thao Schultz.Neutrophil (Seg)3.50 k/uLNormal1.50-8.10 [facility] HospitalComment on above:Performed By: #### AISHWARYA, LIPR #### [place] [address] Parts Assembler: Melvin Santoyo MDBasophils/100 WBC (Bld)1 %Normal0-2Mercy Solsberry HospitalComment on above:Performed By: #### LAKESHIADIVeda, LIPR #### [address] [address] Parts Assembler: Melvin Santoyo MDEosinophils (Bld) [#/Vol]0.40 10*3/uLNormal 0.00-0.44MerOhioHealth Hardin Memorial Hospital HospitalComment on above:Performed By: #### LAKESHIADIVeda, LIPR #### [place] [address] Parts Assembler: MOLLY Schultzosinophils/100 WBC (Bld)5 %High1-4MerOhioHealth Hardin Memorial Hospital HospitalComment on above:Performed By: #### LAKESHIADIVeda, LIPR #### [place] [address] Parts Assembler: Melvin Santoyo MDErythrocyte distribution width (RBC) [Ratio]13.9 %Izyktm44.8-14.4MerOhioHealth Hardin Memorial Hospital HospitalComment on above:Performed By: #### LDLDIVeda, LIPR #### [address] [address] Parts Assembler: Melvin Santoyo MDHematocrit (Bld) [Volume fraction]35.3 %Low 36.3-47.1MercOhio State University Wexner Medical Center HospitalComment on above:Performed By: #### LDLDIR, LIPR #### [address] [address] Parts Assembler: Melvin Santoyo MDHemoglobin (Bld) [Mass/Vol]11.5 g/dLLow11.9-15.1 [facility] HospitalComment on above:Performed By: #### LDLDIVeda, LIPR #### [address] [address] Parts Assembler: Melvin Santoyo MDImmature granulocytes/100 WBC (Bld)2 %Nfug9GrfhuWood County Hospital HospitalComment on above:Performed By: #### LDLDIVeda, LIPR #### [address] [address] Parts Assembler: Melvin Santoyo MDLymphocytes (Bld) [#/Vol]2.89 10*3/uLNormal 1.10-3.70[facility] HospitalComment on above:Performed By: #### LDLDIR, LIPR #### [address] [address] Parts Assembler: Diego Schultzmphocytes/100 WBC (Bld)37 %Pcopsy40-77Smtxl [facility] HospitalComment on above:Performed By: #### LDLDIR, LIPR #### [address] [address] Parts Assembler: KATHIE SchultzCH (RBC) [Entitic mass]31.6 toHfofwh44.2-33.5 [facility] HospitalComment on above:Performed By: #### LDLDIR, LIPR #### [address] [address] Parts Assembler: KATHIE SchultzCHC (RBC) [Mass/Vol]32.6 g/vSQmzyim82.4-34.8 [facility] HospitalComment on above:Performed By: #### LDLDIR, LIPR #### [address] [address] Parts Assembler: KATHIE SchultzCV (RBC) [Entitic vol]97.0 eDYfijnw61.6-102.9 [facility] HospitalComment on above:Performed By: #### LDLDIR, LIPR #### [place] [address] Parts Assembler: KATHIE Schultzonocytes (Bld) [#/Vol]0.79 10*3/uLNormal 0.10-1.20[facility] HospitalComment on above:Performed By: #### LDLDIR, LIPR #### [place] [id number] Parts Assembler: KATHIE Schultzonocytes/100 WBC (Bld)10 %Normal3-12[facility] HospitalComment on above:Performed By: #### LDLDIR, LIPR #### [address] [address] Parts Assembler: Melvin Santoyo MDNeutrophil (Seg)45 %Ginvfk66-82Tknam [facility] HospitalComment on above:Performed By: #### LDLDIR, LIPR #### [address] [address] Parts Assembler: Melvin Santoyo MDNRBC Automated0.0 per 100 WBCNormal0.0[facility] HospitalComment on above:Performed By: #### LDLDIR, LIPR #### [address] [address] Parts Assembler: BENY Schultzlatelet mean volume (Bld) [Entitic vol]9.9 fL Normal8.1-13.5[facility] NorthComment on above:Performed By: #### AISHWARYA LIPR #### [address] [address] Parts Assembler: BEYN Schultzlatelets (Bld) [#/Vol]379 10*3/lXZmxvwr763-527 [facility] NorthComment on above:Performed By: #### LDLDIR, LIPR #### [address] [address] Parts Assembler: Melvin Santoyo [facility] HOSPITALBC (Bld) [#/Vol]3.64 10*6/uLLow3.95-5.11[facility] on above:Performed By: #### AISHWARYA, LIPR #### [address] [address] Parts Assembler: Melvin Santoyo MDWBC (Bld) [#/Vol]7.8 10*3/uLNormal3.5-11.3MMercy Health Urbana HospitalComment on above:Performed By: #### AISHWARYA, LIPR #### [address] [address] Parts Assembler: DEREJE Schultz-19, Rapidon [id number]-CoV-2 (COVID- 19) RdRp gene ASHLEY+probe Ql (Resp)Not detectedNot DetectedBon [facility] on above: Rapid NAAT: The specimen is [...] Methodology: Isothermal Nucleic Acid Amplification Specimen Description.NASOPHARYNGEAL SWABSentara RMH Medical CenterFlu A/B Ag Detectionon [id number] A Ag DetectionNegativeNormalNEG [facility] on above:Result Comment: for Influenza A Antigen Performed By: #### LDLDIR, LIPR #### [facility] [address] [place] [address] Parts Assembler: Melvin Santoyo MDFlu B Ag DetectionNegativeNormalNEGSalem Regional Medical Center on above:Result Comment: for Influenza B Antigen.Performed By: #### LAKESHIADIR, LIPR #### [facility] [address] [place], [place] [phone] Parts Assembler: Jenny Schultz influenza A/B antigenson 91-57-2515YHHCF Ag Ql (Unsp spec)NegativeNEGATIVEMary [facility] Hospital on above:for Influenza A AntigenFLUBV Ag Ql (Unsp spec)NegativeNEGATIVEMary [facility] Hospital on above:for Influenza B Antigen.[facility] PZUW-HfT-9kp 41-67-6796FSFT-CoV-2 (COVID-19) RNA ASHLEY+probe Ql (Unsp spec)Not detectedNormalNOTDEMagruder Hospital on above:Result Comment: Rapid NAAT: The specimen [...] Acid AmplificationPerformed By: #### JANE NEFF #### [facility] [address] [place] [address] Parts Assembler: Mick Schultz 34-69-1228DKB Qn0.84 m[IU]/LBon Wilson HealthComment on above:Specimen hemolysis has exceeded the interference as defined by Amauri. Value may be falsely increased. Suggest recollection if clinically indicated. [facility] CenterThyroid Stim. Horm.on 98-02-6685Fitstcv Stim. Horm.0.84 uIU/mLNormal0.27-4.20[facility] NorthComment on above:Result Comment: Specimen hemolysis has exceeded the interference as defined by Amauri. Value may be falsely increased. Suggest recollection if clinically indicated.Performed By: #### JANE NEFF #### [facility] [address] [place] [id number] Parts Assembler: BRII Schultz Chest 2 Viewson 70-23-2291Sidpyynxr Study observation (narrative)[facility] CenterCBCon 82-09-3593Labwmtjuzjj distribution width (RBC) [Ratio]14.1 %11.8 - 14.4 %[facility] Hematocrit (Bld) [Volume fraction]37.9 %36.3 - 47.1 %[facility] Hemoglobin (Bld) [Mass/Vol]11.4 g/dLLow11.9 - 15.1 g/dLBon [facility] Interpretation and review of laboratory resultsAbnormalReston Hospital Center MCH (RBC) [Entitic mass]30.3 pg25.2 - 33.5 pgReston Hospital CenterMCHC (RBC) [Mass/Vol]30.1 g/dL28.4 - 34.8 g/dLBCarilion Roanoke Community HospitalMCV (RBC) [Entitic vol]100.8 fL82.6 - 102.9 fLReston Hospital CenterNucleated RBC/100 WBC (Bld) [Ratio]0.0 %0.0 per 100 WBCBon Wilson HealthPlatelet mean volume (Bld) [Entitic vol]10.2 fL8.1 - 13.5 fLBon [facility] HealthPlatelets (Bld) [#/Vol] 349 10*3/uLBon Wilson HealthRBC (Bld) [#/Vol]3.76 10*6/uLLow3.95 - 5.11 m/uLBon [facility] HealthWBC other (Bld) [#/Vol]7.8[facility] Bon Wilson HealthErythrocyte distribution width (RBC) [Ratio]14.1 %Normal 11.8-14.4[facility] NorthComment on above:Performed By: #### CP, MG, TROPI #### [address] [place] [address] Parts Assembler: Phillip Camarena MDHematocrit (Bld) [Volume fraction]37.9 %Normal 36.3-47.1MMercy Health Urbana HospitalComment on above:Performed By: #### CP, MG, TROPI #### [address] [place] [address] Parts Assembler: Phillip Cmaarena MDHemoglobin (Bld) [Mass/Vol]11.4 g/dLLow11.9-15.1 [facility] NorthComment on above:Performed By: #### CP, MG, TROPI #### [address] [place], [place] [id number] Parts Assembler: KATHIE TranCH (RBC) [Entitic mass]30.3 bwDqavfi92.2-33.5 [facility] NorthComment on above:Performed By: #### CP, MG, TROPI #### [address] [place] [address] Parts Assembler: KATHIE TranCHC (RBC) [Mass/Vol]30.1 g/sOJxthfr17.4-34.8[facility] HospitalComment on above:Performed By: #### CP, MG, TROPI #### [address] [place] [address] Parts Assembler: KISHORE Tran (RBC) [Entitic vol]100.8 gYLvvpux97.6-102.9 [facility] HospitalComment on above:Performed By: #### CP, MG, TROPI #### [address] [place] [address] Parts Assembler: MAYDA Tran Automated0.0 per 100 WBCNormal0.0[facility] HospitalComment on above:Performed By: #### CP, MG, TROPI #### [address] [place], [place] [id number] Parts Assembler: Mady Tran mean volume (Bld) [Entitic vol]10.2 fL Normal8.1-13.5[facility] NorthComment on above:Performed By: #### SAMIA, MG, TROPI #### [address] [place], [place] [address] Parts Assembler: Daly Tran (Bld) [#/Vol]349 10*3/xUQarvlh673-658 [facility] NorthComment on above:Performed By: #### CP, MG, TROPI #### [address] [place], [facility]83 Parts Assembler: MARY Tran (Bld) [#/Vol]3.76 10*6/uLLow3.95-5.11[facility] HospitalComment on above:Performed By: #### CP, MG, TROPI #### [address] [place], [place] [id number] Parts Assembler: PING Tran (Bld) [#/Vol]7.8 10*3/uLNormal3.5-11.3[facility] HospitalComment on above:Performed By: #### CP, MG, TROPI #### [address] [place], [place] [address]83 Parts Assembler: Phillip Camarena MDComp Metabolic Profon 54-14-8065Exhjbxp [Mass/Vol] 4.3 g/dLNormal3.5-5.2[facility] HospitalComment on above:Performed By: #### CP, MG, TROPI #### [address] [place] [address] Parts Assembler: Phillip Camarena MDAlbumin/Glob Ratio1.5Uzvayd1.0-2.5MerOhioHealth Hardin Memorial Hospital HospitalComment on above:Performed By: #### CP, MG, TROPI #### [address] [place], [place] 17[address] Parts Assembler: Yi Tranline Phos72 U/NYdfzab60-637Yyegc [facility] HospitalComment on above:Performed By: #### CP, MG, TROPI #### [address] [place], [place] [phone] Parts Assembler: Phillip Camarena MDALT [Catalytic activity/Vol]24 U/DSdfbdd98-26Spewp [facility] HospitalComment on above:Performed By: #### CP, MG, TROPI #### [address] [place] [address] Parts Assembler: Phillip Camraena MDAnion gap [Moles/Vol]15 mmol/LNormal9-16[facility] HospitalComment on above:Performed By: #### CP, MG, TROPI #### [address] [place], [place] 12[address] Parts Assembler: Phillip Camarena MDAST [Catalytic activity/Vol]22 U/QWkfacm61-76Mgltj [facility] HospitalComment on above:Performed By: #### CP, MG, TROPI #### [address] [place], [place] [address]83 Parts Assembler: Phillip Camarena MDBilirubin [Mass/Vol]mg/dLNormal0.00-1.20[facility] NorthComment on above:Performed By: #### CP, MG, TROPI #### [address] [place] [address] Parts Assembler: Phillip Camarena MDBUN/CRE Dsmvc92Nejp9-96HzbynSelect Medical Specialty Hospital - [facility] North Comment on above:Performed By: #### CP, MG, TROPI #### [address] [place] [address] Parts Assembler: DAVID Tranalcium [Mass/Vol]9.2 mg/dLNormal8.6-10.4MerOhioHealth Hardin Memorial Hospital HospitalComment on above:Performed By: #### CP, MG, TROPI #### [address] [place] [address] Parts Assembler: DAVID Tranhloride [Moles/Vol]104 mmol/KYpbvrn26-312CrpiiSelect Medical Specialty Hospital - Cincinnati NorthComment on above:Performed By: #### CP, MG, TROPI #### [address] [place] [address] Parts Assembler: Phillip Camarena MDCO2 [Moles/Vol]20 mmol/OBxtuac87-57Kzjzr [facility] HospitalComment on above:Performed By: #### CP, MG, TROPI #### [address] [place], [place] [id number] Parts Assembler: DAVID Tranreatinine [Mass/Vol]1.6 mg/dLHigh0.50-0.90[facility] HospitalComment on above:Performed By: #### CP, MG, TROPI #### [address] [place] [address] Parts Assembler: Phillip Camarena MDGFR/1.73 sq M.predicted among non-blacks MDRD (S/P/Bld) [Vol rate/Area]40 mL/min/{1.73_m2}Low>60[facility] HospitalComment on above:Result Comment: These results are [...] secretion.Performed By: #### CP, MG, TROPI #### [address] [place] [address] Parts Assembler: Phillip Camarena MDGlucose [Mass/Vol]231 mg/lXJlgi35-97Atjnd [facility] HospitalComment on above:Performed By: #### CP, MG, TROPI #### [address] [place] [address] Parts Assembler: Phillip Camarena MDPotassium [Moles/Vol]5.4 mmol/LHigh3.7-5.3[facility] HospitalComment on above:Performed By: #### CP, MG, TROPI #### [address] [place] [address] Parts Assembler: Phillip Camraena MDProtein [Mass/Vol]7.3 g/dLNormal6.6-8.7[facility] HospitalComment on above:Performed By: #### CP, MG, TROPI #### [address] [place] [address] Parts Assembler: Phillip Camarena MDSodium [Moles/Vol]139 mmol/PTalllp018-028Fwgnr [facility] HospitalComment on above:Performed By: #### CP, MG, TROPI #### [facility] [address] [place] [address] Parts Assembler: Phillip Camarena MDUrea nitrogen [Mass/Vol]50 mg/dLHigh6-20MerSt. Vincent's Medical CenterComment on above:Performed By: #### CP, MG, TROPI #### [facility] [address] [place] [address] Parts Assembler: Phillip Camarena JD [facility]EN – NORMANomprehensive Metabolic Panelon [id number] [Mass/Vol]4.3 g/dL3.5 - 5.2 g/dLBon Wilson HealthAlbumin/Globulin [Mass ratio]1.4 {ratio}1.0 - 2.5Bon [facility] HealthALP [Catalytic activity/Vol]72 U/L35 - 104 U/LBon [facility] HealthALT [Catalytic activity/Vol]24 U/L10 - 35 U/LBon Wilson HealthAnion gap [Moles/Vol]15 mmol/L9 - 16 mmol/LBon [facility] HealthAST [Catalytic activity/Vol]22 U/L10 - 35 U/LBon Wilson HealthBilirubin [Mass/Vol]mg/dL0.00 - 1.20 mg/dLBon [facility] Calcium [Mass/Vol]9.2 mg/dL8.6 - 10.4 mg/dLBon Wilson HealthChloride [Moles/Vol]104 mmol/L98 - 107 mmol/LBon [facility] HealthCO2 [Moles/Vol]20 mmol/L20 - 31 mmol/LBon [facility] HealthCreatinine [Mass/Vol]1.6 mg/dLHigh 0.50 - 0.90 mg/dLBon Wilson HealthEst, Glom Filt Yovt72Xma- PINFBon Wilson HealthComment on above: These results are not intended [...] that affects renal tubular secretion. Glucose [Mass/Vol]231 mg/kOGywq94 - 99 mg/dLBon [facility] Interpretation and review of laboratory resultsAbnormalReston Hospital Center Potassium [Moles/Vol]5.4 mmol/LHigh3.7 - 5.3 mmol/LBon [facility] Protein [Mass/Vol]7.3 g/dL6.6 - 8.7 g/dLBon Wilson HealthSodium [Moles/Vol]139 mmol/L136 - 145 mmol/LBon Wilson HealthUrea nitrogen [Mass/Vol]50 mg/dLHigh6 - 20 mg/dLBCarilion Roanoke Community HospitalUrea nitrogen/Creatinine [Mass ratio]31 mg/mgHigh9 - 20Bon [facility] and Health ServicesLDL Chol, Directon [id number] Chol, Xtqfjo28 mg/dLNormal <100[facility] HospitalComment on above:Performed By: #### LDLDIR, LIPR #### [facility] [place] [address] Parts Assembler: Melvin Santoyo MDLDL Cholesterol, Directon [id number] in LDL [Mass/Vol]97 mg/dLNINF - 100 mg/dLBon [facility] and Health ServicesLipid Panelon [id number] [Mass/Vol]297 mg/dLHigh0 - 199 mg/dLBon Wilson HealthComment on above: Cholesterol Guidelines: <200 Desirable 200-240 Borderline >240 Undesirable Cholesterol in HDL [Mass/Vol]26 mg/dLLow40 - PINF mg/dLBon [facility] Comment on above: HDL Guidelines: <40 Undesirable 40-59 Borderline >59 Desirable Cholesterol in LDL [Mass/Vol]Can not be calculated0 - 100 mg/dLBon Wilson HealthComment on above: LDL Guidelines: <100 Desirable 100-129 Near to/above Desirable 130-159 Borderline >159 Undesirable Direct (measured) LDL and calculated LDL are not interchangeable tests. Cholesterol in VLDL [Mass/Vol]Can not be calculated1 - 30 mg/dLBon Wilson HealthCholesterol.total/Cholesterol in HDL [Mass ratio]11.4 {ratio}HighNINF - 5.0[facility] CenterInterpretation and review of laboratory results AbnormalReston Hospital CenterTriglyceride [Mass/Vol]1012 mg/dLHighNINF - 150 mg/dLBon Wilson HealthComment on above: Triglyceride Guidelines: <150 Desirable 150-199 Borderline 200-499 High >499 Very high Based on AHA Guidelines for fasting triglyceride, June 2012. [facility] CenterLipid Profileon 24-02-2066Dxrjaopzazx [Mass/Vol]297 mg/dLHigh0-199[facility] on above:Result Comment: Cholesterol Guidelines: <200 Desirable 200-240 Borderline >240 UndesirablePerformed By: #### LDLDIR, LIPR #### [employer] [address] [place] [phone] Parts Assembler: DAVID Schultzholesterol in HDL [Mass/Vol]26 mg/dLLow>40[facility] on above:Result Comment: HDL Guidelines: <40 Undesirable 40-59 Borderline >59 DesirablePerformed By: #### LDLDIR, LIPR #### [employer] [address] [place] [phone] Parts Assembler: DAVID Schultzholesterol,LDLCan not be calculatedNormal0-100 [facility] on above:Result Comment: LDL Guidelines: <100 Desirable 100-129 Near to/above Desirable 130-159 Borderline >159 Undesirable Direct (measured) LDL and calculated LDL are not interchangeable tests.Performed By: #### LDLDIR, LIPR #### [employer] [address] [place] [phone] Parts Assembler: DAVID Schultzholesterol,VLDLCan not be calculatedNormal1-30 [facility] on above:Performed By: #### LDLDIR, LIPR #### [employer] [address] [place] [address] Parts Assembler: DAVID Schultzholesterol.total/Cholesterol in HDL [Mass ratio]11.4 {ratio}High<5.0[facility] NorthComment on above:Performed By: #### LDLDIR LIPR #### [employer] [address] [place], [place] [phone] Parts Assembler: Melvin Santoyo MDTriglyceride [Mass/Vol]1012 mg/dLHigh<150MerOhioHealth Hardin Memorial Hospital HospitalComment on above:Result Comment: Triglyceride Guidelines: <150 Desirable 150-199 Borderline 200-499 High >499 Very high Based on AHA Guidelines for fasting triglyceride, June 2012.Performed By: #### LDLDIVeda LIPR #### [facility] [place], [place] [address] Parts Assembler: PASTOR SchultzEXA BONE DENSITY AXIAL SKELETONon 05-08-2025 DEXA BONE DENSITY AXIAL SKELETONEXAMINATION: BONE DENSITOMETRY 05/02/2025 3:49 pm TECHNIQUE: A bone density dual x-ray absorptiometry (DXA) scan was performed of the lumbar spine and left hip on a [employer] system. COMPARISON: None. HISTORY: ORDERING SYSTEM PROVIDED [...] Signed by: Ameena Oliveira MD 05/08/25 Final resultNoParkwood HospitalHemoglobin A1Con 01-23-3674Qjmskpt glucose Estimated from glycated hemoglobin (Bld) [Mass/Vol]206 mg/dLBon Wilson HealthComment on above:The ADA and AACC recommend providing the estimated average glucose result to permit better patient understanding of their HBA1c result. HbA1c (Bld) [Mass fraction]8.8 %High4.0 - 6.0 %[facility] Interpretation and review of laboratory resultsAbnormalBon [facility] Medical CenterGlucose [Mass/Vol]206 mg/dLNoParkwood Hospital Comment on above:Result Comment: The ADA and AACC recommend providing the estimated average glucose result to permit better patient understanding of their HBA1c result.Performed By: #### SAMIA MG, TROPI #### [facility] [address] [place] [address] Parts Assembler: Phillip Camarena MDHbA1c (Bld) [Mass fraction]8.8 %High4.0-6.0[facility] NorthComment on above:Performed By: #### SAMIA MG, TROPI #### [facility] [address] [place] [address] Parts Assembler: SEVERINO Tran LUMBAR SPINE WO CONTRASTon [id number] LUMBAR SPINE WO CONTRASTEXAM: MRI LUMBAR SPINE [...] 04/16/25 Final resultNormalSelect Medical Specialty Hospital - Cincinnati NorthHemoglobin A1Con 73-56-3040Vkbsjfn glucose Estimated from glycated hemoglobin (Bld) [Mass/Vol]200 mg/dLBon Wilson HealthComment on above:The ADA and AACC recommend providing the estimated average glucose result to permit better patient understanding of their HBA1c result. HbA1c (Bld) [Mass fraction]8.6 %High4.0 - 6.0 %[facility] Interpretation and review of laboratory resultsAbnormalBon [facility] HealthGlucose [Mass/Vol]200 mg/dLNoParkwood Hospital Comment on above:Result Comment: The ADA and AACC recommend providing the estimated average glucose result to permit better patient understanding of their HBA1c result.Performed By: #### GLYHGB #### [facility] [address] [place] [address] Parts Assembler: Melvin Santoyo MDHbA1c (Bld) [Mass fraction]8.6 %High4.0-6.0[facility] HospitalComment on above:Performed By: #### GLYHGB #### [employer] [address] [place] [address] Parts Assembler: Melvin Santoyo MDHemoglobin A1Con 25-85-3604Qfbcdle [Mass/Vol]177 mg/dLNoParkwood HospitalComment on above:Result Comment: The ADA and AACC recommend providing the estimated average glucose result to permit better patient understanding of their HBA1c result.Performed By: #### LDLDIR, LIPR #### [facility] [address] [place] [address] Parts Assembler: Melvin Santoyo MDHbA1c (Bld) [Mass fraction]7.8 %High4.0-6.0[facility] NorthComment on above:Performed By: #### LDLDIR, LIPR #### [facility] [address] [place] [address] Parts Assembler: Melvin Santoyo [facility] with Auto Differentialon [id number] (Bld) [#/Vol]0.10 10*3/uLBon Secours Mercy HealthBasophils/100 WBC (Bld)1 %0 - 2 %[facility] HealthEosinophils (Bld) [#/Vol]0.00 10*3/uLBon Secours Mercy HealthEosinophils/100 WBC (Bld)0 %0 - 4 %[facility] HealthErythrocyte distribution width (RBC) [Ratio]14.4 %11.5 - 14.9 %[facility] Hematocrit (Bld) [Volume fraction]27.8 %Low36 - 46 %[facility] Hemoglobin (Bld) [Mass/Vol]9.3 g/dLLow12.0 - 16.0 g/dLBon [facility] Interpretation and review of laboratory resultsAbnormalReston Hospital Center Lymphocytes/100 WBC (Bld)24 %24 - 44 %[facility] CenterLymphocytes/100 WBC (Bld)2.60 %[facility] CenterH (RBC) [Entitic mass]31.2 pg26 - 34 pg [facility] CenterHC (RBC) [Mass/Vol]33.3 g/dL31 - 37 g/dLBon [facility]ostoria City HospitalV (RBC) [Entitic vol]93.6 fL80 - 100 fLReston Hospital Center Monocytes/100 WBC (Bld)9 %High1 - 7 %[facility] CenterMonocytes/100 WBC (Bld)1.00 %[facility] CenterNeutrophils/100 WBC (Bld)66 %36 - 66 %[facility] CenterPlatelet mean volume (Bld) [Entitic vol]7.1 fL6.0 - 12.0 fL [facility] CenterPlatelets (Bld) [#/Vol]366 10*3/uLReston Hospital CenterRBC (Bld) [#/Vol]2.97 10*6/uLLow4.0 - 5.2 m/uLReston Hospital Center Segmented neutrophils/100 WBC (Bld)7.40 %[facility] CenterWBC other (Bld) [#/Vol]11.2HighSentara RMH Medical CenterCBC with Diffon [id number]. Basophil0.10 k/uLNormal0.0-0.2[facility] CampusComment on above:Performed By: #### CDP, CMPX #### [facility] [address] [place] [address] Parts Assembler: Ed Mcduffie DOAbs.Neutrophil (Seg)7.40 k/uLNormal1.3-9.1 [facility] on above:Performed By: #### RICK, CMPX #### [facility] [place] [address] Parts Assembler: Ed Mcduffie DOBasophils/100 WBC (Bld)1 %Normal0-2M[address] hospitaly [facility] CampusComcorewell health [facility] on above:Performed By: #### CDP, CMPX #### [facility] [address] [place] [address] Parts Assembler: Ed Mcduffie DOEosinophils (Bld) [#/Vol]0.00 10*3/uLNormal 0.0-0.4[facility] HospitalComcorewell health [facility] on above:Performed By: #### RICK, CMPX #### [facility] [address] [place] [address] Parts Assembler: Ed Mcduffie DOEosinophils/100 WBC (Bld)0 %Normal0-4[facility] HospitalComcorewell health will[facility] on above:Performed By: #### RICK, CMPX #### [facility] [address] [place] [address] Parts Assembler: Ed Mcduffie DOErythrocyte distribution width (RBC) [Ratio] 14.4 %Yhxuqu15.5-14.9[facility] on above:Performed By: #### RICK, CMPX #### [facility] [address] [place] [address] Parts Assembler: Ed Mcduffie DOHematocrit (Bld) [Volume fraction]27.8 %Low 36-46[facility] HospitalComcorewell health [facility] on above:Performed By: #### CDP, CMPX #### [facility] [address] [place] [address] Parts Assembler: Fanelly, Ed, DOHemoglobin (Bld) [Mass/Vol]9.3 g/dLLow 12.0-16.0[facility] on above:Performed By: #### CDP, CMPX #### [facility] [address] [place] [address] Parts Assembler: Ed Mcduffie DOLymphocytes (Bld) [#/Vol]2.60 10*3/uLNormal 1.0-4.8[facility] HospitalComcorewell health [facility] on above:Performed By: #### CDP, CMPX #### [facility] [address] [place] [address] Parts Assembler: Ed Mcduffie DOLymphocytes/100 WBC (Bld)24 %Qygieq23-95JmpzlBethesda North Hospital on above:Performed By: #### CDP, CMPX #### [facility] [address] [place] [address] Parts Assembler: Ed Mcduffie DOMCH (RBC) [Entitic mass]31.2 exVgokag72-94 [facility] on above:Performed By: #### RICK, CMPX #### [facility] [facility] [address] [place] [address]80 Parts Assembler: Ed Mcduffie DOMCHC (RBC) [Mass/Vol]33.3 g/pOUrolmn27-51 [facility] on above:Performed By: #### RICK, CMPX #### [facility] [address] [place] [address] 29063 Parts Assembler: Ed Mcduffie DOMCV (RBC) [Entitic vol]93.6 jXIwroga75-071 [facility] on above:Performed By: #### CDP, CMPX #### [facility] [address] [place] [address]802 Parts Assembler: Ed Mcduffie DOMonocytes (Bld) [#/Vol]1.00 10*3/uLNormal 0.1-1.3[facility] CampusComment on above:Performed By: #### CDP, CMPX #### [facility] [address] [facility] [place] [address] Parts Assembler: Ed Mcduffie DOMonocytes/100 WBC (Bld)9 %High1-7Riverside Methodist HospitalComment on above:Performed By: #### CDP, CMPX #### [facility] [address] [place] [address]. [place] [address] Parts Assembler: Ed Mcduffie DONeutrophil (Seg)66 %Lhhhgq12-14WbrqtRiverside Methodist HospitalComment on above:Performed By: #### CDP, CMPX #### [facility] [address] [place] [address]. [place] [address] Parts Assembler: Ed Mcduffie DOPlatecory mean volume (Bld) [Entitic vol]7.1 fLNormal6.0-12.0[facility] CampusComcorewell health [facility] on above:Performed By: #### CDP, CMPX #### [facility] [address] [place] [address]. [place] [address] Parts Assembler: Ed Mcduffie DOPlatelets (Bld) [#/Vol]366 10*3/uLNormal 150-450[facility] CampusComcorewell health [facility] on above:Performed By: #### CDP, CMPX #### [facility] [address] [place] [address]. [place] [address] Parts Assembler: Ed Mcduffie DORBC (Bld) [#/Vol]2.97 10*6/uLLow4.0-5.2[facility] CampusComcorewell health [facility] on above:Performed By: #### CDP, CMPX #### [facility] [address] [facility] [place] [address] Parts Assembler: Ed Mcduffie DOWBC (Bld) [#/Vol]11.2 10*3/uLHigh3.5-11.0 [facility] Methodist HospitalComment on above:Performed By: #### CDP, CMPX #### [facility] [address] [place] [address] Parts Assembler: Ed Mcduffie DOComp Metabolic Pr/rfx MGon 35-49-6145Vyemlyn [Mass/Vol]4.1 g/dLNormal3.5-5.2[facility] CampusComment on above: Performed By: #### CDP, CMPX ####[facility] [address] [place], [place] [phone] Director: Ed Mcduffie DO Alkaline Phos54 U/VVvwldm78-881IgqjcRiverside Methodist HospitalComment on above: Performed By: #### RICK, CMPX ####[facility] [address] [place], [place] [phone] Director: Ed Mcduffie DOALT [Catalytic activity/Vol]11 U/XUptgqw35-51PidfdRiverside Methodist HospitalComment on above:Performed By: #### RICK, CMPX ####[facility] [address] [facility].[place], [place] [phone] Director: Ed Mcduffie DO Anion gap [Moles/Vol]12 mmol/LNormal9-16R[facility] Methodist HospitalComment on above:Performed By: #### RICK, CMPX ####[facility] [address] [place], [place] [phone] Director: Ed Mcduffie DOAST [Catalytic activity/Vol]19 U/IOnnkto11-04VxibwRiverside Methodist HospitalComment on above:Performed By: #### CDP, CMPX ####[facility] [address] [facility].[place], [place] [phone] Director: Ed Mcduffie DO Bilirubin [Mass/Vol]mg/dLNormal0.0-1.2MPike Community HospitalComment on above:Performed By: #### RICK, CMPX ####[facility] [address] [place] [address].[place], [place] [phone] Director: Ed Mcduffie DO Calcium [Mass/Vol]9.2 mg/dLNormal8.6-10.4R[facility] Methodist HospitalComment on above:Performed By: #### RICK, ROSALBAX ####[address], [place] [phone] Director: Ed Mcduffie DO Chloride [Moles/Vol]102 mmol/EWbfppp51-689CtydaRiverside Methodist HospitalComment on above:Performed By: #### RICK, CMPX ####[facility] [address] [place] [address].[place], [place] [phone] Director: Ed Mcduffie DOCO2 [Moles/Vol]23 mmol/NDknovz47-42NbqadRiverside Methodist HospitalComcorewell health [facility] on above: Performed By: #### RICK, CMPX ####[address], [place] [phone] Director: Ed Mcduffie DO Creatinine [Mass/Vol]1.0 mg/dLNormal0.7-1.2MPike Community HospitalComment on above:Performed By: #### RICK, CMPX ####[address] [phone] Director: Ed Mcduffie DO GFR/1.73 sq M.predicted among non-blacks MDRD (S/P/Bld) [Vol rate/Area]68 mL/min/{1.73_m2}Normal>60[facility] on above:Result Comment: These results are not [...] renal tubular secretion.Performed By: #### RICK, CMPX ####[facility] [address] [place], [place] [address] [phone] Director: Ed Mcduffie DOGlucose [Mass/Vol]294 mg/dL Byak43-92Rafdv [facility] on above:Performed By: #### RICK, CMPX ####[address] [phone] Director: Ed Mcduffie DOPotassium [Moles/Vol]4.7 mmol/LNormal3.7-5.3[facility] CampusComcorewell health [facility] on above:Performed By: #### RICK, CMPX ####[facility] [address] [place] [address] [phone] Director: Ed Mcduffie DOProtein [Mass/Vol]6.7 g/dL Normal6.6-8.7MerPike Community Hospital on above:Performed By: #### RICK, CMPX ####[facility] [address] [place] [address] [phone] Director: Ed Mcduffie DOSodium [Moles/Vol]137 mmol/L Encujz636-713JjbmqPike Community Hospital on above:Performed By: #### RICK, CMPX ####[facility] [address] [place] [address].[place], [place] [address] [phone] Director: Ed Mcduffie DOUrea nitrogen [Mass/Vol]28 mg/dLHigh6-20[facility] Philadelphia HospitalComment on above:Performed By: #### CDP, CMPX ####[facility] [address] [address] [address] [facility] Director: Ed Mcduffie DOComprehensive Metabolic Panel w/ Reflex to MGon 80-04-6148Egrmpmf [Mass/Vol]4.1 g/dL3.5 - 5.2 g/dLBon SecSwedish Medical Center EdmondsR&M Engineering HealthALP [Catalytic activity/Vol]54 U/L35 - 104 U/LBon SecSwedish Medical Center EdmondsR&M Engineering HealthALT [Catalytic activity/Vol]11 U/L10 - 35 U/LBon Secours Memorial Health System Selby General HospitalShiny MediaAnion gap [Moles/Vol]12 mmol/L9 - 16 mmol/LBon Secours Memorial Health System Selby General HospitalR&M Engineering HealthAST [Catalytic activity/Vol]19 U/L10 - 35 U/LBon SecSwedish Medical Center EdmondsShiny MediaBilirubin [Mass/Vol]mg/dL 0.0 - 1.2 mg/dLBon [facility] OnVantage Memorial [facility] System Selby General HospitalCalcium [Mass/Vol]9.2 mg/dL8.6 - 10.4 mg/dLBon SecSwedish Medical Center EdmondsR&M Engineering Memorial [facility] General HospitalChloride [Moles/Vol]102 mmol/L98 - 107 mmol/LBon Secours Memorial Health System Sel[facility] General HospitalR&M Engineering HealthCO2 [Moles/Vol]23 mmol/L20 - 31 mmol/LBon [facility] HospitalR&M Engineering [facility] HospitalCreatinine [Mass/Vol]1.0 mg/dL0.7 - 1.2 mg/dLBon SecSwedish Medical Center EdmondsR&M Engineering Memorial [facility] Selby General HospitalEst, Glom Filt Rate68- PINFBon Wilson HealthComment on above: These results are not intended [...] that affects renal tubular secretion. Glucose [Mass/Vol]294 mg/yZQzoc50 - 99 mg/dLBon Arizona State HospitalViaziz Scam Interpretation and review of laboratory resultsAbnormalBon Kaiser Foundation HospitalShiny Media Potassium [Moles/Vol]4.7 mmol/L3.7 - 5.3 mmol/LBon Secours Mercy HealthProtein [Mass/Vol]6.7 g/dL6.6 - 8.7 g/dLBon Wilson HealthSodium [Moles/Vol]137 mmol/L136 - 145 mmol/LBon Wilson HealthUrea nitrogen [Mass/Vol]28 mg/dL High6 - 20 mg/dLBon [facility] Health ServicesGlucose,Whole Bloodon 35-16-9298Ixifykb [Mass/Vol]381 mg/kPCuxc32-291JrpavRiverside Methodist HospitalGlucose [Mass/Vol]310 mg/wSHoam63-210MepqbRiverside Methodist HospitalGlucose [Mass/Vol]297 mg/cFPmjz57-109FzjidRiverside Methodist HospitalPO Glucose Fingerstickon 23-48-1377Ncmbdio [Mass/Vol]381 mg/xDZdpx42 - 105 mg/dLBon [facility] Interpretation and review of laboratory resultsAbnormalRetreat Doctors' HospitalGlucose [Mass/Vol]310 mg/dDAlke00 - 105 mg/dLBon Wilson HealthInterpretation and review of laboratory resultsAbnormalSentara RMH Medical CenterGlucose [Mass/Vol]297 mg/xKWqaf08 - 105 mg/dLBon Wilson HealthInterpretation and review of laboratory results AbnormalBon [facility] and Health ServicesFLUORO FOR SURGICAL PROCEDURESon 55-01-4599BHIPEV FOR SURGICAL PROCEDURESRadiology exam is complete. No Radiologist dictation. Please follow up with ordering provider. Final resultNormalMercy Summa Health Akron CampusGlucose,Whole Bloodon 09-14-2024 Glucose [Mass/Vol]353 mg/rGHmyt49-474ZyotwRiverside Methodist HospitalGlucose [Mass/Vol]402 mg/dLCritically sdrg55-137ZueqoRiverside Methodist HospitalGlucose [Mass/Vol]301 mg/gSOuwo68-237OkvgvRiverside Methodist HospitalGlucose [Mass/Vol]280 mg/kJOeyy32-127Mlexs St. Charles HospitalGuidance-- during surgeryon 09-14-2024 Radiology exam is complete. No Radiologist dictation. Please follow up with ordering provider. PN RIS CONSOLIDATEDNo Panel Informationon . Postsurgical changes of the left foot without visualized complication. 2. Questioned minimal anterior subluxation of the talus in relation to the distal tibia. 3. Note that overlying casting material obscures fine bony detail. [facility] CONSOLIDATEDEXAMINATION: THREE XRAY VIEWS OF THE LEFT [...] material. No lytic or blastic lesions present. [facility] Hollie Landry MD - 09/14/2024 EXAMINATION: THREE [...] overlying casting material obscures fine bony detail. [facility] NanosphereInova Women's HospitalRadiology Study observation (narrative)[facility] ChirpVisionNo Panel InformationOrdered By: Hollie Patiño on 47-73-5865Kom [facility] ChirpVision Work Phone: POC Glucose Fingerstickon 75-34-3892Auhykar [Mass/Vol] 353 mg/aXIiri41 - 105 mg/dLBon [facility] FarmanInterpretation and review of laboratory resultsAbnormHenrico Doctors' Hospital—[facility] Campus Glucose [Mass/Vol]402 mg/dLCritically high65 - 105 mg/dLBCarilion [facility] Interpretation and review of laboratory resultsAbnormWythe County Community HospitalGlucose [Mass/Vol]301 mg/yQLtjj01 - 105 mg/dLBon Wilson HealthInterpretation and review of laboratory resultsAbnormalSentara RMH Medical CenterGlucose [Mass/Vol]280 mg/qOZpue04 - 105 mg/dLBon Wilson HealthInterpretation and review of laboratory results [facility] CenterSurgical Pathology Reporton [id number] Pathology Report(NOTE) Path Number: [id number] -- Diagnosis -- ORTHOPEDIC HARDWARE, LEFT ANKLE, [...] x 0.6 cm. One bears the inscription [phone] 160MM ID 2 CE and the other [phone] 160MM ID 2 CE. There is a C-shaped conner metallic component that is 17.0 x 1.5 x 0.6 cm bearing the inscription [phone] 140MM ID 2. There is a U-shaped conner metallic device that is roughly 51.0 x 4.0 x 0.9 cm bearing the inscription [phone] [id number] CE 123 140MM ID. It has two threaded regions and two embedded conner metallic threaded screws that are 2.9 to 3.0 cm in length x 0.6 to 1.4 cm in diameter, with attached nuts. One screw bears the inscription [id number] 54-1152 CE and the other [id number] [phone] CE. There are two black to conner metallic and rubbery components that are 28.8 x 3.5 x 2.3 cm. It bears the inscription FRONT and [id number] CE 2. It has two additional black to conner metallic components attached by threaded screws and washers that are 5.7 cm in length x 0.6 to 1.0 cm in diameter. These components there the inscription B34CE 2. There are four conner metallic rectangular components each with four hollow spaces. It is 5.7 x 1.2 x 0.9 cm. They bear inscription [phone] CE [id number], [phone] CE [id number], [phone] CE [id number] and [phone] CE [id number]. There is a 3.3 x 1.2 x 0.9 cm conner metallic component with two hollow spaces that bears the inscription [phone] CE [id number]. There are eighteen conner, metallic, hexagonal threaded [...] diameter. They bear the inscriptions [phone] 16 [id number], 54-2233 16 [id number], 54-2233 16 [id number] and 54-2233 16 [id number]. There are three threaded conner, metallic bolt-like components that are 1.0 cm in length x 1.5 cm in diameter that there the inscription 54-2235 [id number], 54-2235 [id number] and 54-2235 [id number]. There are fourteen threaded conner, metallic components that are 2.9 cm in length x 0.6 to 1.4 cm in diameter, eight of which that bear the inscription [id number] 54-1152 CE. One bears the inscription [id number] 54-1152 CE and another [id number] 54-1152 CE. Two bare the inscription [id number] 54-1152 CE. Two bear the inscription [id number] 54-1152 CE. Lastly, there are four additional conner to black components that vary in size from 20.0 to 21.0 cm in length x 0.6 to 2.5 cm in diameter bearing inscriptions [phone] [id number] CE TLR STRUT-LONG 2 , 50-1090 [id number] CE TLR STRUT-LONG 2 , 50-64451 [id number] CE TLR STRUT-LONG 2 , and 50-68863 [id number] CE TLR STRUT-LONG 2. No sections are submitted for microscopic evaluation. Gross exam only. Yadira Wright./se:09/17/2024 Processing Lab: [address] [address] Interpretation Performed at [address] [phone] SURGICAL PATHOLOGY CONSULTATION Patient Name: VIRGIL WARNER [facility] Rec: [id number] [facility] ANATOMIC PATHOLOGY [facility] [facility] [place], [place] [id number] NoParkwood HospitalXR ANKLE LEFT (MIN 3 VIEWS)on 67-99-6183IJ ANKLE LEFT (MIN 3 VIEWS)EXAMINATION: THREE XRAY [...] Signed by: Hollie Patiño MD 09/14/24 Final resultNormAdena Health SystemXR FOOT LEFT (MIN 3 VIEWS)on 41-30-6882BD FOOT LEFT (MIN 3 VIEWS)EXAMINATION: THREE XRAY [...] by: Hollie Patiño MD 09/14/24 Final resultNormalMercy [facility] Health [facility]ron CampusXR TIBIA FIBULA LEFT (2 VIEWS)on 78-83-8442AZ TIBIA FIBULA LEFT (2 VIEWS)EXAMINATION: THREE XRAY [...] by: Hollie Patiño MD 09/14/24 Final resultNormalMercy [facility]view Health Metabolic Panelon 09-07-2024 Anion gap [Moles/Vol]13 mmol/L9 - 16 mmol/LBon SeceVendor Check HealthCalcium [Mass/Vol]10.4 mg/dL8.6 - 10.4 mg/dLBon SeceVendor Check HealthChloride [Moles/Vol] 104 mmol/L98 - 107 mmol/LBon SeceVendor Check HealthCO2 [Moles/Vol]25 mmol/L20 - 31 mmol/LBon SeceVendor Check HealthCreatinine [Mass/Vol]1.1 mg/dL0.7 - 1.2 mg/dLBon SeceVendor Check HealthEst, Glom Filt Rate61- PINFBon [email or web address] on above: These results are not intended [...] secretion. Glucose [Mass/Vol]90 mg/dL74 - 99 mg/dLBon [email or web address] and review of laboratory resultsAbnormalBon GlycoVaxyn HealthPotassium [Moles/Vol]4.8 mmol/L3.7 - 5.3 mmol/LBon GlycoVaxyn HealthComment on above: Specimen hemolysis has exceeded the interference as defined by Amauri. Value may be falsely increased. Suggest recollection if clinically indicated. Sodium [Moles/Vol]142 mmol/L136 - 145 mmol/LBon [email or web address].comUrea nitrogen [Mass/Vol]27 mg/dLHigh6 - 20 mg/dLBon SeceVendor Check HealthBon SecViaziz ScamBasic Metabolic Profon 23-78-8437Kkftq gap [Moles/Vol]13 mmol/L Normal9-16Riverside Methodist HospitalComment on above:Performed By: #### LASHON, CDP ####[facility] [address] [facility], [place] [address] [phone] Director: Ed Mcduffie DOCalcium [Mass/Vol]10.4 mg/dL Normal8.6-10.4Riverside Methodist HospitalComcorewell health [facility] on above:Performed By: #### BMP, CDP ####[facility] [address] [facility] [address] [phone] Director: Ed Mcduffie DOChloride [Moles/Vol]104 mmol/L Potwcz69-679SxsacRiverside Methodist HospitalComcorewell health [facility] on above:Performed By: #### LASHON, CDP ####[place] [address] [facility].[place], [place] [address] [phone] Director: Ed Mcduffie DOCO2 [Moles/Vol]25 mmol/LNormal 20-31Riverside Methodist HospitalComcorewell health [facility] on above:Performed By: #### LASHON, CDP ####[facility] [address] [facility] [address] [phone] Director: Ed Mcduffie DOCreatinine [Mass/Vol]1.1 mg/dL Normal0.7-1.2MercWayne HospitalComcorewell health [facility] on above:Performed By: #### LASHON, CDP ####[facility] [address] [place] [address] [phone] Director: Ed Mcduffie DOGFR/1.73 sq M.predicted among non-blacks MDRD (S/P/Bld) [Vol rate/Area]61 mL/min/{1.73_m2}Normal>60MerSt. Elizabeth HospitalComcorewell health [facility] on above:Result Comment: These results are [...] renal tubular secretion.Performed By: #### BMP, CDP ####[facility] [address] [place], [place] [phone] Director: Ed Mcduffie DOGlucose [Mass/Vol]90 mg/dL Sxpxrp11-10Fmmse [facility] CampusComment on above:Performed By: #### BMP, CDP ####[facility] [address] [place], [place] [phone] Director: Ed Mcduffie DOPotassium [Moles/Vol]4.8 mmol/LNormal3.7-5.3[facility] CampusComment on above:Result Comment: Specimen hemolysis has exceeded the interference as defined by Amauri. Value may be falsely increased. Suggest recollection if clinically indicated.Performed By: #### BMP, CDP ####[facility] [address] [facility].[place], [place] [phone] Director: Ed Mcduffie DOSodium [Moles/Vol]142 mmol/UPexysn793-058HbzwbSt. Elizabeth HospitalComcorewell health [facility] on above:Performed By: #### BMP, CDP ####[address], [place] [phone] Director: Ed Mcduffie DOUrea nitrogen [Mass/Vol]27 mg/dLHigh6-20MerSt. Elizabeth HospitalComcorewell health [facility] on above:Performed By: #### LASHON, CDP ####[facility] [address] [place] [address].[place], [place] [address] [phone] Director: Ed Mcduffie DOCBC with Auto Differentialon 24-32-0366Zpzqolljc (Bld) [#/Vol]0.10 10*3/uLBon [facility] Interpretation and review of laboratory resultsAbnormalBon [facility] Lymphocytes/100 WBC (Bld)3.20 %[facility] CenterMonocytes/100 WBC (Bld) 0.70 %[facility] Hospital CenterNeutrophils/100 WBC (Bld)43 %36 - 66 %[facility] CenterSegmented neutrophils/100 WBC (Bld)3.30 %[facility] Hospital CenterWBC other (Bld) [#/Vol]7.6Bon [facility] HealthBon Wilson HealthCBC with Diffon 53-09-9738Kbp. Basophil0.10 k/uLNormal0.0-0.2M[address] hospitaly [facility] Comment on above:Performed By: #### LASHON, CDP ####[facility] Zah[address] [place] [address] Lab Director: Ed Mcduffie DOAbs.Neutrophil (Seg)3.30 k/uLNormal1.3-9.1MercWayne HospitalComment on above:Performed By: #### LASHON, CDP ####[facility] [address] [facility] [place] [address] Lab Director: Ed Mcduffie DOBasophils/100 WBC (Bld)1 %Normal0-2Bon [facility] Comment on above:Performed By: #### LASHON, CDP ####[facility] [address] [facility] [place] [address] Lab Director: Ed Mcduffie DOEosinophils (Bld) [#/Vol]0.40 10*3/uLNormal0.0-0.4Bon Wilson HealthComment on above:Performed By: #### LASHON, CDP ####[facility] [address] [facility] [place] [address] Lab Director: Ed Mcduffie DOEosinophils/100 WBC (Bld)5 %High0-4Bon [facility] Comment on above:Performed By: #### LASHON, CDP ####[facility] [address] [place] [address] Lab Director: Ed Mcduffie DOErythrocyte distribution width (RBC) [Ratio]14.4 %Oaxukt87.5-14.9 [facility] CenterComcorewell health [facility] on above:Performed By: #### BMP, CDP ####[address] [address] Lab Director: Ed Mcduffie DOHematocrit (Bld) [Volume fraction]35.3 %Xjf44-44 [facility] CenterComment on above:Performed By: #### BMP, CDP ####[address] [phone] Director: Ed Mcduffie DOHemoglobin (Bld) [Mass/Vol]11.6 g/dLLow12.0-16.0 [facility] CenterComcorewell health [facility] on above:Performed By: #### BMP, CDP ####[address] [address] Lab Director: Ed Mcduffie DOLymphocytes (Bld) [#/Vol]3.20 10*3/uLNormal 1.0-4.8R[facility] Methodist HospitalComcorewell health [facility] on above:Performed By: #### BMP, CDP ####[address] [address] Lab Director: Ed Mcduffie DOLymphocytes/100 WBC (Bld)42 % Bnkeil08-85Wch Wilson HealthComment on above:Performed By: #### BMP, CDP ####[address] [address] Lab Director: Ed Mcduffie DOMCH (RBC) [Entitic mass]30.8 moKmxsoa32-73Mxg Wilson HealthComment on above:Performed By: #### BMP, CDP ####[facility] [address] [facility] [phone] Director: Ed Mcduffie DOMCHC (RBC) [Mass/Vol]32.9 g/dL Sksjsn05-39Wgv Wilson HealthComment on above:Performed By: #### BMP, CDP ####[address], [place] [address] [phone] Director: Ed Mcduffie DOMCV (RBC) [Entitic vol]93.5 fL Hjevgg21-518Tpc Wilson HealthComment on above:Performed By: #### BMP, CDP ####[address], [place] [address] [phone] Director: Ed Mcduffie DOMonocytes (Bld) [#/Vol]0.70 10*3/uLNormal0.1-1.3[facility] CampusComcorewell health [facility] on above:Performed By: #### BMP, CDP ####[address], [place] [phone] Director: Ed Mcduffie DOMonocytes/100 WBC (Bld)9 %High1-7Bon SecUniversity Hospitals Geauga Medical CenterComcorewell health [facility] on above:Performed By: #### BMP, CDP ####[address], [place] [address] [phone] Director: Ed Mcduffie DONeutrophil (Seg)43 %Normal 36-66[facility] CampusComcorewell health [facility] on above:Performed By: #### BMP, CDP ####[address], [place] [address] [phone] Director: Ed Mcduffie DOPlatelet mean volume (Bld) [Entitic vol]7.3 fLNormal6.0-12.0Bon SecUniversity Hospitals Geauga Medical CenterComment on above: Performed By: #### BMP, CDP ####[facility] [address] [place] [address] Lab Director: Ed Mcduffie DO Platelets (Bld) [#/Vol]447 10*3/vQIcnumw795-513Dqa Wilson HealthComment on above:Performed By: #### BMP, CDP ####[facility] [address] [facility] [place] [address] Lab Director: Ed Mcduffie DORBC (Bld) [#/Vol]3.78 10*6/uLLow4.0-5.2Bon [facility] Comment on above:Performed By: #### BMP, CDP ####[facility] [address] [facility] [place] [address] Lab Director: Ed Mcduffie DOWBC (Bld) [#/Vol]7.6 10*3/uLNormal3.5-11.0Riverside Methodist HospitalComment on above:Performed By: #### BMP, CDP ####[facility] [address] [facility] [place] [address] Lab Director: Ed Mcduffie DOCT FOOT LEFT WO CONTRASTon 95-87-7878ZC FOOT LEFT WO CONTRASTEXAMINATION: CT OF THE [...] Signed by: Xiomara Betts MD 09/03/24 Final resultNormalMerSt. Vincent's Medical CenterC-Reactive Proteinon [id number] High sensitivity method [Mass/Vol]24.8 mg/LHigh0.0 - 5.0 mg/LBon [facility] Interpretation and review of laboratory resultsAbnormalRetreat Doctors' HospitalCRP [Mass/Vol]24.8 mg/LHigh0.0-5.0[facility] Methodist HospitalComment on above:Performed By: #### CRP ####[facility] [address] [place] [address] [facility] Director: Ed Mcduffie DOCKon 67-10-4626YI [Catalytic activity/Vol]216 U/LHigh26 - 192 U/L [facility] CenterInterpretation and review of laboratory resultsAbnormal [facility] Medical CenterCT ANKLE LEFT WO CONTRASTon [id number] ANKLE LEFT WO CONTRASTEXAMINATION: CT OF THE [...] HISTORY ORDERING SYSTEM PROVIDED HISTORY: [facility] ankle TECHNOLOGIST PROVIDED HISTORY: Ankle-hindfoot: Reformat Coronal [...] by: Ani Trejo MD 07/26/24 Final resultNormalMercy [facility]ma Health Akron CampusCT FOOT LEFT WO CONTRASTon [id number] FOOT LEFT WO CONTRASTEXAMINATION: CT OF THE [...] HISTORY ORDERING SYSTEM PROVIDED HISTORY: [facility] TECHNOLOGIST PROVIDED HISTORY: [place] [facility] Is [...] Signed by: Jason Long MD 07/26/24 Final resultNormalRiverside Methodist HospitalCreatine Kinaseon [id number] [Catalytic activity/Vol]216 U/AMiik44-754CcxaxRiverside Methodist HospitalComment on above:Performed By: #### CK, ECENZ #### [facility] [address] [place] [address] Parts Assembler: Ed Mcduffie DOGlucose,Whole Bloodon 99-76-7376Maukqvt [Mass/Vol]278 mg/cHCttv97-195LrlbcRiverside Methodist HospitalGlucose [Mass/Vol]72 mg/jPIjgcep77-005RhqqlRiverside Methodist HospitalGlucose [Mass/Vol]180 mg/vFOyzz55-157 [facility] HospitalGlucose [Mass/Vol]203 mg/aINnpz74-976WqopiRiverside Methodist HospitalPO Glucose Fingerstickon 12-82-8814Zvhnfxr [Mass/Vol]278 mg/fPZfcs50 - 105 mg/dLBon Secours Mercy HealthInterpretation and review of laboratory resultsAbnormalSentara RMH Medical CenterGlucose [Mass/Vol]72 mg/dL65 - 105 mg/dLBon [facility] Glucose [Mass/Vol]180 mg/eHPixg72 - 105 mg/dLBon [facility] Interpretation and review of laboratory resultsAbnormalReston Hospital Center Bon [facility] HealthGlucose [Mass/Vol]203 mg/pDSttb73 - 105 mg/dLBon [facility] HealthInterpretation and review of laboratory resultsAbnormalSentara RMH Medical CenterTrop/Myoglobinon 62-54-5551Jzpbdbrryrdnlx and review of laboratory resultsAbnormLewisGale Hospital AlleghanyMyoglobin [Mass/Vol]79 ng/fKRdry34 - 58 ng/mLReston Hospital CenterTroponin I.cardiac High sensitivity method [Mass/Vol]23 ng/LHigh0 - 14 ng/LBon [facility] Comment on above:High Sensitivity Troponin values cannot be compared with other Troponin methodologies.Reston Hospital CenterMyoglobin [Mass/Vol]79 ng/mLHigh 25-58[facility] CampusComment on above:Performed By: #### CKBRAD #### [facility] [address] [place] [address] Parts Assembler: Ed Mcduffie DOTroponin, High Sens23 ng/LHigh0-14[facility] on above:Result Comment: High Sensitivity Troponin values cannot be compared with other Troponin methodologies.Performed By: #### CK, ECENZ #### [facility] [address] [place] [address] Parts Assembler: Ed Mcduffie DOCBC with Auto Differentialon 07-25-2024 Basophils (Bld) [#/Vol]0.10 10*3/uLBon Wilson HealthBasophils/100 WBC (Bld)1 %0 - 2 %[facility] Hospital CenterEosinophils (Bld) [#/Vol]0.20 10*3/uLBon SecUniversity Hospitals Geauga Medical CenterEosinophils/100 WBC (Bld)2 %0 - 4 %[facility] Erythrocyte distribution width (RBC) [Ratio]14.0 %11.5 - 14.9 %[facility] Hospital CenterHematocrit (Bld) [Volume fraction]33.2 %Low36 - 46 %[facility] Hospital CenterHemoglobin (Bld) [Mass/Vol]10.9 g/dLLow12.0 - 16.0 g/dLBon [facility] HealthInterpretation and review of laboratory resultsAbnormalBon [facility] HealthLymphocytes/100 WBC (Bld)40 %24 - 44 %[facility] Lymphocytes/100 WBC (Bld)4.10 %[facility] CenterH (RBC) [Entitic mass] 31.3 pg26 - 34 pgBon Fostoria City HospitalHC (RBC) [Mass/Vol]32.7 g/dL31 - 37 g/dLBon Fostoria City HospitalV (RBC) [Entitic vol]95.7 fL80 - 100 fLReston Hospital CenterMonocytes/100 WBC (Bld)7 %1 - 7 %[facility] Monocytes/100 WBC (Bld)0.70 %[facility] CenterNeutrophils/100 WBC (Bld)50 %36 - 66 %[facility] CenterPlatelet mean volume (Bld) [Entitic vol]7.0 fL 6.0 - 12.0 fLBon SecAcadian Medical Center HealthPlatelets (Bld) [#/Vol]460 10*3/uLHighBon SecUniversity Hospitals Geauga Medical CenterRBC (Bld) [#/Vol]3.46 10*6/uLLow4.0 - 5.2 m/uLBon [facility] HealthSegmented neutrophils/100 WBC (Bld)5.10 %[facility] Hospital CenterWBC other (Bld) [#/Vol]10.2Bon SecAscension Southeast Wisconsin Hospital– Franklin CampusCBC with Diffon 38-66-1167Ntr. Basophil0.10 k/uLNormal0.0-0.2[facility] Comment on above:Performed By: #### CDP, CP ####[facility] [address] [facility].[place], [place] [phone] Director: Ed Mcduffie DOAbs.Neutrophil (Seg)5.10 k/uLNormal1.3-9.1[facility] CampusComment on above:Performed By: #### CDP, CP ####[facility] Ctg[address] [facility].[place], [place] [phone] Director: Ed Mcduffie DOBasophils/100 WBC (Bld)1 %Normal0-2[facility] CampusComment on above:Performed By: #### CDP, CP ####[address], [place] [phone] Director: Ed Mcduffie DOEosinophils (Bld) [#/Vol]0.20 10*3/uLNormal0.0-0.4MerSt. Elizabeth HospitalComment on above:Performed By: #### CDP, CP ####[address], [place] [phone] Director: Ed Mcduffie DOEosinophils/100 WBC (Bld)2 %Normal0-4Riverside Methodist HospitalComment on above:Performed By: #### CDP, CP ####[facility] [address] [place] [address].[place], [place] [phone] Director: Ed Mcduffie DOErythrocyte distribution width (RBC) [Ratio]14.0 %Normal 11.5-14.9Riverside Methodist HospitalComment on above:Performed By: #### CDP, CP ####[address] [phone] Director: Ed Mcduffie DOHematocrit (Bld) [Volume fraction]33.2 %Cfz17-24DkikqSt. Elizabeth HospitalComment on above:Performed By: #### CDP, CP ####[facility] Vfh[address] [place], [place] [phone] Director: Ed Mcduffie DOHemoglobin (Bld) [Mass/Vol]10.9 g/dLLow12.0-16.0R[facility]ide Methodist HospitalComcorewell health william [facility] on above: Performed By: #### CDP, CP ####[facility] [address] [place] [address] [phone] Director: Ed Mcduffie DOLymphocytes (Bld) [#/Vol]4.10 10*3/uLNormal1.0-4.8R[facility]ide Methodist HospitalComcorewell health william [facility] hospital on above:Performed By: #### CDP, CP ####[address] [phone] Director: Ed Mcduffie DO Lymphocytes/100 WBC (Bld)40 %Iqezeq74-52RonykRiverside Methodist HospitalComcorewell health will[facility] on above:Performed By: #### CDP, CP ####[address] [phone] Director: Ed Mcduffie DOMCH (RBC) [Entitic mass]31.3 ifQonncd68-91EscgmSt. Elizabeth HospitalComcorewell health will[facility] on above:Performed By: #### CDP, CP ####[facility] [address] [place] [address] [phone] Director: Ed Mcduffie DOMCHC (RBC) [Mass/Vol]32.7 g/oWEdxdmb71-27ImmuhRiverside Methodist HospitalComcorewell health [facility] on above: Performed By: #### CDP, CP ####[facility] [address] [place] [address] [phone] Director: Ed Mcduffie DOMCV (RBC) [Entitic vol]95.7 zBNfdlcv50-019LsforRiverside Methodist HospitalComcorewell health [facility] on above: Performed By: #### CDP, CP ####[facility] Zkj[address] [facility].[place], [place] [phone] Director: Ed Mcduffie DOMonocytes (Bld) [#/Vol]0.70 10*3/uLNormal0.1-1.3[facility] CampusComcorewell health [facility] on above:Performed By: #### CDP, CP ####[facility] Woz[address] [facility].[place], [place] [phone] Director: Ed Mcduffie DO Monocytes/100 WBC (Bld)7 %Normal1-7Riverside Methodist HospitalComcorewell health [facility] on above: Performed By: #### CDP, CP ####[address], [place] [phone] Director: Ed Mcduffie DONeutrophil (Seg)50 %Zszevz95-03FndaeRiverside Methodist HospitalComcorewell health [facility] on above:Performed By: #### CDP, CP ####[place] [address] [facility].[place], [place] [phone] Director: Ed Mcduffie DOPlatelet mean volume (Bld) [Entitic vol]7.0 fLNormal6.0-12.0Riverside Methodist HospitalComcorewell health [facility] on above:Performed By: #### CDP, CP ####[facility] Wen[address] [facility].[place], [place] [phone] Director: Ed Mcduffie DO Platelets (Bld) [#/Vol]460 10*3/oPAsjk518-178ZwdthRiverside Methodist HospitalComcorewell health [facility] on above:Performed By: #### CDP, CP ####[facility] R[address] [place] [address].[place], [place] [phone] Director: Ed Mcduffie DORBC (Bld) [#/Vol]3.46 10*6/uLLow4.0-5.2MPike Community Hospital Comment on above:Performed By: #### CDP, CP ####[facility] [address], [place] [phone] Director: Ed Mcduffie DOWBC (Bld) [#/Vol]10.2 10*3/uLNormal3.5-11.0Riverside Methodist HospitalComment on above:Performed By: #### CDP, CP ####[facility] [address], [place] [phone] Director: Ed Mcduffie DOComp Metabolic Profon 59-86-5871Ljbroar [Mass/Vol]4.0 g/dL Normal3.5-5.2MPike Community HospitalComment on above:Performed By: #### CHIRAG, ECENZ #### [facility] [address] [facility] [place] [address] Parts Assembler: Ed Mcduffie DOAlkaline Phos62 U/OMjrrjj75-873BonnhRiverside Methodist HospitalComment on above:Performed By: #### CHIRAG, ECENZ #### [facility] [address] [facility] [place] [address] Parts Assembler: Ed Mcduffie DOALT [Catalytic activity/Vol]12 U/YWawwen41-20 [facility] Methodist HospitalComment on above:Performed By: #### CHIRAG, ECENZ #### [facility] [address] [facility] [place] [address] Parts Assembler: Ed Mcduffie DOAnion gap [Moles/Vol]13 mmol/LNormal9-16R[facility] Methodist HospitalComcorewell health [facility] on above:Performed By: #### CK, ECENZ #### [facility] [address] [facility] [place] [address] Parts Assembler: Fanelly, Ed, DOAST [Catalytic activity/Vol]19 U/OFlvrdl15-32 [facility] HospitalComment on above:Performed By: #### CHIRAG, ECENZ #### [facility] [address] [place] [address] Parts Assembler: Ed Mcduffie DOBilirubin [Mass/Vol]mg/dLNormal0.0-1.2MPike Community HospitalComment on above:Performed By: #### CHIRAG, ECENZ #### [facility] [address] [place] [address] Parts Assembler: Ed Mcduffie DOCalcium [Mass/Vol]9.4 mg/dLNormal8.6-10.4 [facility] HospitalComcorewell health [facility] on above:Performed By: #### CHIRAG, ECENZ #### [facility] [address] [place] [address] Parts Assembler: Ed Mcduffie DOChloride [Moles/Vol]99 mmol/OAzqlax07-728 [facility] HospitalComcorewell health [facility] on above:Performed By: #### CHIRAG, ECENZ #### [facility] [address] [place] [address] Parts Assembler: Ed Mcduffie DOCO2 [Moles/Vol]23 mmol/KZuffyr74-14VeazvRiverside Methodist HospitalComcorewell health [facility] on above:Performed By: #### CHIRAG, ECENZ #### [facility] [address] [place] [address] Parts Assembler: Ed Mcduffie DOCreatinine [Mass/Vol]1.2 mg/dLNormal0.7-1.2 [facility] HospitalComcorewell health [facility] on above:Performed By: #### CHIRAG, ECENZ #### [facility] [address] [place] [address] Parts Assembler: Ed Mcduffie, DOGFR/1.73 sq M.predicted among non-blacks MDRD (S/P/Bld) [Vol rate/Area]55 mL/min/{1.73_m2}Low>60[facility] Comment on above:Result Comment: These results are [...] tubular secretion.Performed By: #### CK, ECENZ #### [facility] [address] [place] [address] Parts Assembler: Ed Mcduffie DOGlucose [Mass/Vol]191 mg/tXBnhs93-49DzrwrPike Community HospitalComment on above:Performed By: #### CHIRAG, ECENZ #### [facility] [address] [place] [address]. [place] [address] Parts Assembler: Ed Mcduffie DOPotassium [Moles/Vol]4.6 mmol/LNormal3.7-5.3 [facility] HospitalComcorewell health [facility] on above:Performed By: #### CHIRAG, ECENZ #### [facility] [address] [place] [address] Parts Assembler: Ed Mcduffie DOProtein [Mass/Vol]7.1 g/dLNormal6.6-8.7R[facility] Methodist HospitalComcorewell health [facility] on above:Performed By: #### CHIRAG, ECENZ #### [facility] [address] [place] [address] Parts Assembler: Ed Mcduffie DOSodium [Moles/Vol]135 mmol/RNqo960-633EniqlRiverside Methodist HospitalComment on above:Performed By: #### CK, ECENZ #### [facility] [address] [place] [address] Parts Assembler: Ed Mcduffie DOUrea nitrogen [Mass/Vol]38 mg/dLHigh6-20[facility] CampusComment on above:Performed By: #### BRAD BEARD #### [facility] [address] [place] [address] Parts Assembler: Ed Mcduffie DOComprehensive Metabolic Panelon 07-25-2024 Albumin [Mass/Vol]4.0 g/dL3.5 - 5.2 g/dLBon [facility] HealthALP [Catalytic activity/Vol]62 U/L35 - 104 U/LBon [facility] HealthALT [Catalytic activity/Vol]12 U/L10 - 35 U/LBon [facility] HealthAnion gap [Moles/Vol]13 mmol/L9 - 16 mmol/LBon [facility] HealthAST [Catalytic activity/Vol]19 U/L10 - 35 U/LBon [facility] HealthBilirubin [Mass/Vol]mg/dL0.0 - 1.2 mg/dLBon [facility] HealthCalcium [Mass/Vol]9.4 mg/dL8.6 - 10.4 mg/dLBon [facility] HealthChloride [Moles/Vol]99 mmol/L98 - 107 mmol/LBon [facility] HealthCO2 [Moles/Vol]23 mmol/L20 - 31 mmol/LBon [facility] HealthCreatinine [Mass/Vol] 1.2 mg/dL0.7 - 1.2 mg/dLBon [facility] HealthEst, Glom Filt Kapi49Ztd- PINF Bon [facility] HealthComcorewell health [facility] on above: These results are not [...] that affects renal tubular secretion. Glucose [Mass/Vol]191 mg/kBWdon02 - 99 mg/dLBon [facility] Interpretation and review of laboratory resultsAbnormalBon Secours [facility] Potassium [Moles/Vol]4.6 mmol/L3.7 - 5.3 mmol/LBon [facility] HealthProtein [Mass/Vol]7.1 g/dL6.6 - 8.7 g/dLBon [facility] HealthSodium [Moles/Vol]135 mmol/ZHbp834 - 145 mmol/LBon [facility] HealthUrea nitrogen [Mass/Vol]38 mg/dLHigh6 - 20 mg/dLBon [facility] Glucose,Whole Bloodon 90-80-4937Ivokpbf [Mass/Vol]180 mg/aYEjuo61-687UjtvvRiverside Methodist HospitalGlucose [Mass/Vol]154 mg/zTYecp05-506WcajeRiverside Methodist Hospital Glucose [Mass/Vol]138 mg/tAPzdn55-405MnyjgRiverside Methodist HospitalGlucose [Mass/Vol]205 mg/rWRczz00-233JkhzgRiverside Methodist HospitalPO Glucose Fingerstickon 15-37-5155Yodzqdh [Mass/Vol]180 mg/dDIsee17 - 105 mg/dLBon [facility] Interpretation and review of laboratory resultsAbnormWythe County Community HospitalGlucose [Mass/Vol]154 mg/yMWbfq85 - 105 mg/dLBon [facility] HealthInterpretation and review of laboratory resultsAbnormHenrico Doctors' Hospital—Parham CampusGlucose [Mass/Vol]138 mg/vCYztp43 - 105 mg/dLBon [facility] HealthInterpretation and review of laboratory results AbnormalBon [facility] Health ServicesGlucose [Mass/Vol]205 mg/bGPjvx24 - 105 mg/dLBon [facility] HealthInterpretation and review of laboratory resultsAbnormalSentara RMH Medical CenterCBC with Auto Differentialon 06-69-4729Bzayuvbhx (Bld) [#/Vol]0.10 10*3/[facility] HealthcareInterpretation and review of laboratory resultsAbnormLewisGale Hospital AlleghanyLymphocytes/100 WBC (Bld)1.90 %[facility] Monocytes/100 WBC (Bld)1.10 %[facility] CenterNeutrophils/100 WBC (Bld)79 %High36 - 66 %Bon [facility] HealthSegmented neutrophils/100 WBC (Bld)11.30 %HighBon Wilson HealthWBC other (Bld) [#/Vol]14.4HighBon Wilson HealthBon Wilson HealthCBC with Diffon 27-11-1257Knqspgwjd/100 WBC (Bld)1 %Normal0-2Bon [facility] HealthComment on above:Performed By: #### CMPX, CDP ####[facility] Bff[address] [place], [place] [address] Lab Director: Ed Mcduffie DOEosinophils (Bld) [#/Vol]0.00 10*3/uLNormal0.0-0.4Bon [facility] on above:Performed By: #### CMPX, CDP ####[address] [address] Lab Director: Ed Mcduffie DOEosinophils/100 WBC (Bld)0 %Normal0-4Bon [facility] on above:Performed By: #### CMPX, CDP ####[address] [address] Lab Director: Ed Mcduffie DOErythrocyte distribution width (RBC) [Ratio]14.0 %Geyvli15.5-14.9Bon [facility] on above:Performed By: #### CMPX, CDP ####[address] [place] [address] Lab Director: Ed Mcduffie DO Hematocrit (Bld) [Volume fraction]33.0 %Szt04-26Ilq Wilson HealthComment on above:Performed By: #### CMPX, CDP ####[address] [address] Lab Director: Ed Mcduffie DOHemoglobin (Bld) [Mass/Vol]10.8 g/dLLow12.0-16.0Bon [facility] on above:Performed By: #### CMPX, CDP ####[facility] [address] [facility], [place] [phone] Director: Ed Mcduffie DOLymphocytes/100 WBC (Bld)13 %Kvh74-38Pkg [facility] on above:Performed By: #### CMPX, CDP ####[facility] [address] [place] [address] [phone] Director: Ed Mcduffie DOMCH (RBC) [Entitic mass]31.3 znUtikxx00-91Rba Wilson HealthComment on above:Performed By: #### CMPX, CDP ####[facility] [address]tr[address] [facility], [place] [phone] Director: Ed Mcduffie DOMCHC (RBC) [Mass/Vol]32.7 g/lOJzgmci23-31Dvi [facility] Comment on above:Performed By: #### CMPX, CDP ####[facility] [address] [place] [address] [phone] Director: Ed Mcduffie DOMCV (RBC) [Entitic vol]95.8 fOBezful32-147Dwt [facility] Comment on above:Performed By: #### CMPX, CDP ####[facility] [address] [place] [address] [phone] Director: dE Mcduffie DOMonocytes/100 WBC (Bld)7 %Normal1-7Bon [facility] on above:Performed By: #### CMPX, CDP ####[facility] [address] [place] [address] [phone] Director: Ed Mcduffie DOPlatelet mean volume (Bld) [Entitic vol]7.8 fLNormal6.0-12.0Bon [facility] HealthComcorewell health [facility] on above:Performed By: #### CMPX, CDP ####[facility] F[address] [facility], [place] [phone] Director: Ed Mcduffie DOPlatelets (Bld) [#/Vol]473 10*3/lQMfwb831-866Onb [facility] on above:Performed By: #### CMPX, CDP ####[address], [place] [phone] Director: Ed Mcduffie DORBC (Bld) [#/Vol]3.45 10*6/uLLow4.0-5.2Bon [facility] on above:Performed By: #### CMPX, CDP ####[address], [place] [phone] Director: Ed Mcduffie DOAbs. Basophil0.10 k/uLNormal0.0-0.2[facility] CampusComcorewell health [facility] on above:Performed By: #### CMPX, CDP ####[address], [place] [phone] Director: Ed Mcduffie DOAbs.Neutrophil (Seg)11.30 k/uLHigh1.3-9.1[facility] CampusComcorewell health [facility] on above:Performed By: #### CMPX, CDP ####[facility] [address] [place] [address].[place], [place] [phone] Director: Ed Mcduffie DOLymphocytes (Bld) [#/Vol]1.90 10*3/uLNormal 1.0-4.8[facility] CampusComcorewell health [facility] on above:Performed By: #### CMPX, CDP ####[facility] Qkv[address] [facility], [place] [address] Lab Director: Ed Mcduffie DOMonocytes (Bld) [#/Vol]1.10 10*3/uLNormal0.1-1.3MercWayne HospitalComment on above:Performed By: #### CMPX, CDP ####[facility] [address] [facility], [place] [phone] Director: Ed Mcduffie DONeutrophil (Seg)79 % Aook12-99CtavdSt. Elizabeth HospitalComment on above:Performed By: #### CMPX, CDP ####[facility] Uvc[address] [facility], [place] [phone] Director: Ed Mcduffie DOWBC (Bld) [#/Vol]14.4 10*3/uL High3.5-11.0R[facility]ide Methodist HospitalComment on above:Performed By: #### CMPX, CDP ####[place] [address] [facility], [place] [address] [phone] Director: Ed Mcduffie DOComp Metabolic Pr/rfx MGon 97-84-4956Wyxwuwd [Mass/Vol]3.9 g/dLNormal3.5-5.2MPike [facility] Hospital Comment on above:Performed By: #### CMPX, CDP ####[facility] Gfr[address] [facility], [place] [phone] Director: Ed Mcduffie DOAlkaline Phos60 U/SJvmkli07-836UljarRiverside Methodist HospitalComment on above:Performed By: #### CMPX, CDP ####[facility] In[address] [facility] [place] [address] Lab Director: Ed Mcduffie DOALT [Catalytic activity/Vol]18 U/PTkrmhj50-67HeyilSt. Elizabeth HospitalComment on above:Performed By: #### CMPX, CDP ####[facility] Kfa[address] [place] [address] Lab Director: Ed Mcduffie DOAST [Catalytic activity/Vol]32 U/RBgrsdn99-48PeainSt. Elizabeth HospitalComcorewell health [facility] on above:Result Comment: SPECIMEN SLIGHTLY HEMOLYZED, RESULTS MAY BE ADVERSELY AFFECTED.Performed By: #### CMPX, CDP ####[facility] Eju[address] [place] [address] Lab Director: Ed Mcduffie DOPotassium [Moles/Vol]5.3 mmol/LNormal3.7-5.3MercWayne HospitalComcorewell health [facility] on above:Result Comment: SPECIMEN SLIGHTLY HEMOLYZED, RESULTS MAY BE ADVERSELY AFFECTED.Performed By: #### CMPX, CDP ####[address] [address] Lab Director: Ed Mcduffie DOAnion gap [Moles/Vol]12 mmol/LNormal9-16MerSt. Elizabeth HospitalComment on above:Performed By: #### CMPX, CDP ####[facility] [address] [place] [address] Lab Director: Ed Mcduffie DOBilirubin [Mass/Vol]mg/dL Normal0.0-1.2MercWayne HospitalComcorewell health [facility] on above:Performed By: #### CMPX, CDP ####[facility] [address] [place] [address] Lab Director: Ed Mcduffie DOCalcium [Mass/Vol]9.0 mg/dL Normal8.6-10.4MerSt. Elizabeth HospitalComcorewell health [facility] on above:Performed By: #### CMPX, CDP ####[facility] [address] [place] [address] [phone] Director: Ed Mcduffie DOChloride [Moles/Vol]103 mmol/WGdsrua90-737UvwhsRiverside Methodist HospitalComment on above:Performed By: #### CMPX, CDP ####[facility] [address] [facility], [place] [phone] Director: Ed Mcduffie DOCO2 [Moles/Vol]21 mmol/L Fgvxpp95-40GuffrRiverside Methodist HospitalComcorewell health [facility] on above:Performed By: #### CMPX, CDP ####[facility] [address] [facility], [place] [address] [phone] Director: Ed Mcduffie DOCreatinine [Mass/Vol]1.1 mg/dLNormal0.7-1.2MPike Community HospitalComcorewell health [facility] on above:Performed By: #### CMPX, CDP ####[address], [place] [phone] Director: Ed Mcduffie DOGFR/1.73 sq M.predicted among non-blacks MDRD (S/P/Bld) [Vol rate/Area]61 mL/min/{1.73_m2}Normal>60R[facility] HospitalComcorewell health [facility] on above:Result Comment: These results are [...] renal tubular secretion.Performed By: #### CMPX, CDP ####[facility] [address] [facility], [place] [address] [phone] Director: Ed Mcduffie DOGlucose [Mass/Vol]144 mg/dL Putm10-87Ukanw [facility] CampusComcorewell health [facility] on above:Performed By: #### CMPX, CDP ####[facility] Yun[address] [place], [place] [address] Lab Director: Ed Mcduffie DOProtein [Mass/Vol]6.9 g/dL Normal6.6-8.7R[facility] HospitalComcorewell health [facility] on above:Performed By: #### CMPX, CDP ####[facility] Zuf[address] [place], [place] [address] Lab Director: Ed Mcduffie, DOSodium [Moles/Vol]136 mmol/L Kdzfqm625-899PlostSt. Elizabeth HospitalComment on above:Performed By: #### CMPX, CDP ####[facility] Yaq[address] [place], [place] [address] Lab Director: Ed Mcduffie DOUrea nitrogen [Mass/Vol]27 mg/dLHigh6-20MerSt. Elizabeth HospitalComment on above:Performed By: #### CMPX, CDP ####[facility] Tqv[address] [place], [place] [address] Lab Director: Ed Mcduffie DOComprehensive Metabolic Panel w/ Reflex to MGon 12-46-7827Uzrwumi [Mass/Vol]3.9 g/dL3.5 - 5.2 g/dLBon Secours Memorial Health System Sel[facility] Hospitaly HealthALP [Catalytic activity/Vol]60 U/L35 - 104 U/LBon Secours Mercy HealthALT [Catalytic activity/Vol]18 U/L10 - 35 U/LBon Secours Mercy HealthAnion gap [Moles/Vol]12 mmol/L9 - 16 mmol/LBon Secours Mercy HealthAST [Catalytic activity/Vol]32 U/L10 - 35 U/LBon Secours Memorial Health System Selby General Hospitaly HealthComment on above:SPECIMEN SLIGHTLY HEMOLYZED, RESULTS MAY BE ADVERSELY AFFECTED.Bilirubin [Mass/Vol]mg/dL 0.0 - 1.2 mg/dLBon Secours Mercy HealthCalcium [Mass/Vol]9.0 mg/dL8.6 - 10.4 mg/dLBon Secours Mercy HealthChloride [Moles/Vol]103 mmol/L98 - 107 mmol/LBon Wilson HealthCO2 [Moles/Vol]21 mmol/L20 - 31 mmol/LBon [facility] HealthCreatinine [Mass/Vol]1.1 mg/dL0.7 - 1.2 mg/dLBon Wilson HealthJarocho Sánchez Rate61- PINFBon Citizens [facility] on above: These results are not intended [...] that affects renal tubular secretion. Glucose [Mass/Vol]144 mg/wLKeyi21 - 99 mg/dLBon [facility] Interpretation and review of laboratory resultsAbnormalReston Hospital Center Potassium [Moles/Vol]5.3 mmol/L3.7 - 5.3 mmol/LBon Lutheran Hospitalment on above:SPECIMEN SLIGHTLY HEMOLYZED, RESULTS MAY BE ADVERSELY AFFECTED.Protein [Mass/Vol]6.9 g/dL6.6 - 8.7 g/dLBon Wilson HealthSodium [Moles/Vol]136 mmol/L136 - 145 mmol/LBon Wilson HealthUrea nitrogen [Mass/Vol]27 mg/dL High6 - 20 mg/dLBon [facility] Health ServicesGlucose,Whole Bloodon 36-38-6940Rdzccfi [Mass/Vol]150 mg/eDYteh25-688Uijtj [facility] CampusGlucose [Mass/Vol]250 mg/eFPedz35-230EzirzSt. Elizabeth HospitalGlucose [Mass/Vol]224 mg/vYPvbr13-264IhkcxRiverside Methodist HospitalGlucose [Mass/Vol]385 mg/lHBlwx81-923FofdrRiverside Methodist HospitalHemoglobin A1Con 11-99-6550Shqranm glucose Estimated from glycated hemoglobin (Bld) [Mass/Vol]206 mg/dLBon [facility] on above:The ADA and AACC recommend providing the estimated average glucose result to permit better patient understanding of their HBA1c result. HbA1c (Bld) [Mass fraction]8.8 %High4.0 - 6.0 %[facility] Interpretation and review of laboratory resultsAbnoLandmann-Jungman Memorial HospitalGlucose [Mass/Vol]206 mg/dLNoParkwood HospitalComcorewell health william [facility] on above:Result Comment: The ADA and AACC recommend providing the estimated average glucose result to permit better patient understanding of their HBA1c result.Performed By: #### CK, ECENZ #### [facility] [address] [place] [address] Parts Assembler: Ed Mcduffie DOHbA1c (Bld) [Mass fraction]8.8 %High4.0-6.0 Riverside Methodist HospitalComcorewell health william [facility]um[facility] university hospital on above:Performed By: #### CK, ECENZ #### [facility] [address] [place] [address] Parts Assembler: Ed Mcduffie DONo Panel Informationon 39-04-5596Zsy [facility] Glucose Fingerstickon 65-28-0009Wujnojx [Mass/Vol]150 mg/dLHigh 65 - 105 mg/dLBon Wilson HealthInterpretation and review of laboratory resultsAbnormHenrico Doctors' Hospital—Parham CampusGlucose [Mass/Vol]250 mg/rRPulk88 - 105 mg/dLBon Wilson HealthInterpretation and review of laboratory resultsAbnormHenrico Doctors' Hospital—Parham CampusGlucose [Mass/Vol]224 mg/vNUwxw76 - 105 mg/dLBon [facility] Interpretation and review of laboratory resultsAbnormWythe County Community HospitalGlucose [Mass/Vol]385 mg/oATvpy50 - 105 mg/dLBon Wilson HealthInterpretation and review of laboratory resultsAbnoMid Dakota Medical CenterPrealbuminon 60-96-9944Iadccwlufw [Mass/Vol] 27.5 mg/dL20.0 - 40.0 mg/dLBon Wilson HealthPrealbumin [Mass/Vol]27.5 mg/xNXaanzj29.0-40.0Riverside Methodist HospitalComment on above:Performed By: #### CHIRAG, ECENZ #### [facility] [address] [place] [address] Parts Assembler: Ed Mcduffie DOSedimentation Rateon 86-30-7130PQO Photometric method (Bld) [Velocity]25Sentara RMH Medical CenterSedimentation Rate25 mm/HrNormal0-30Riverside Methodist HospitalComment on above:Performed By: #### CK, ECENZ #### [facility] [address] [place] [address] Parts Assembler: Ed Mcduffie DOVitamin D 25 Hydroxyon 24-73-976156- hydroxyvitamin D3 [Mass/Vol]ng/mLLow30.0 - 100.0 ng/mLReston Hospital Center Comment on above: Reference Range: Vitamin D status Range Deficiency <20 ng/mL Mild Deficiency 20-30 ng/mL Sufficiency 30-100 ng/mL Toxicity >100 ng/mL Interpretation and review of laboratory resultsAbnoBath Community Hospital Vitamin D 25 OHon 52-93-6277Zqkckou D 25 OH<6.0Low30.0-100.0Riverside Methodist HospitalComment on above:Result Comment: Reference Range: Vitamin D status Range Deficiency <20 ng/mL Mild Deficiency 20-30 ng/mL Sufficiency 30-100 ng/mL Toxicity >100 ng/mLPerformed By: #### CHIRAG, ECENZ #### [facility] [address] [place] [address] Parts Assembler: Ed Mcduffie DOFLUORO FOR SURGICAL PROCEDURESon 07-23-2024 FLUORO FOR SURGICAL PROCEDURESRadiology exam is complete. No Radiologist dictation. Please follow up with ordering provider. Final resultNormalRiverside Methodist HospitalGlucose,Whole Bloodon 07-23-2024 Glucose [Mass/Vol]408 mg/dLCritically xsul63-640RjjpsRiverside Methodist Hospital Comment on above:Result Comment: Critical NotedGlucose [Mass/Vol]284 mg/dLHigh 65-105Mercy [facility] CampusGlucose [Mass/Vol]188 mg/sZPrxo14-430Mndhy [facility] CampusGuidance-- during surgeryon 92-68-3079Yeqzmfqyh exam is complete. No Radiologist dictation. Please follow up with ordering provider. [facility] CONSOLIDATEDK (Potassium)on 23-43-7042Jihkcbche [Moles/Vol]5.5 mmol/L High3.7-5.3Mercy [facility] Akron CampusComment on above:Performed By: #### K ####[facility] [address] [place] [address] [facility] Director: Ed Mcduffie DONo Panel Informationon 07-23-2024 Postoperative left leg, ankle and foot radiographs. [facility] CONSOLIDATEDEXAMINATION: THREE XRAY VIEWS OF THE LEFT [...] surrounds the lower leg, ankle and foot. [facility] Carlos Shirley MD - 07/23/2024 EXAMINATION: THREE [...] Postoperative left leg, ankle and foot radiographs. [facility] CenterNo Panel InformationOrdered By: Carlos Orta on 17-65-6069Mzb [facility] Work Phone: POC Glucose Fingerstickon 00-65-2090Sltpfsn [Mass/Vol] 408 mg/dLCritically high65 - 105 mg/dLBon Wilson HealthComment on above: Critical NotedInterpretation and review of laboratory resultsAbnormalSentara RMH Medical CenterGlucose [Mass/Vol]284 mg/kRQotg67 - 105 mg/dLBon Wilson HealthInterpretation and review of laboratory results AbnormalBon [facility] Health ServicesGlucose [Mass/Vol]188 mg/hIFzdi80 - 105 mg/dLBon Wilson HealthInterpretation and review of laboratory resultsAbnormalBon [facility] Potassiumon 35-61-2149Yvquclicrkjgop and review of laboratory resultsAbAugusta HealthPotassium [Moles/Vol]5.5 mmol/LHigh3.7 - 5.3 mmol/LBon [facility] Health ServicesXR ANKLE LEFT (MIN 3 VIEWS)on 09-11-5142UT ANKLE LEFT (MIN 3 VIEWS)EXAMINATION: THREE XRAY [...] Signed by: Carlos Orta MD 07/23/24 Final resultNoParkwood HospitalXR Ankle - left 3 Viewson 07-23-2024 Radiology Study observation (narrative)[facility] Hospital CenterXR FOOT LEFT (MIN 3 VIEWS)on 62-39-9508TA FOOT LEFT (MIN 3 VIEWS)EXAMINATION: THREE XRAY [...] Signed by: Carlos Orta MD 07/23/24 Final resultNoParkwood HospitalXR Foot - left 3 Viewson 07-23-2024 Radiology Study observation (narrative)[facility] Hospital CenterXR TIBIA FIBULA LEFT (2 VIEWS)on 44-77-2245IJ TIBIA FIBULA LEFT (2 VIEWS)EXAMINATION: THREE XRAY [...] Signed by: Carlos Orta MD 07/23/24 Final resultNormalRiverside Methodist HospitalXR Tibia and Fibula - left 2 Viewson 03-10-8318Glpebxyxi Study observation (narrative)[facility] OnVantage Memorial Health System [facility] HospitalBasic Metabolic Panelon 91-54-2519Kkxlq gap [Moles/Vol]13 mmol/L9 - 16 mmol/LBon Arizona State HospitaleVendor Check [facility] HospitalCalcium [Mass/Vol]9.6 mg/dL8.6 - 10.4 mg/dLBon [facility] State HospitaleVendor Check [facility] General HospitalChloride [Moles/Vol]101 mmol/L98 - 107 mmol/LBon [facility] State HospitaleVendor Check [facility] HospitalCO2 [Moles/Vol]21 mmol/L20 - 31 mmol/LBon [facility] State HospitaleVendor Check [facility] HospitalCreatinine [Mass/Vol] 1.1 mg/dLHigh0.50 - 0.90 mg/dLBon Arizona State HospitalViaziz ScamEst, Glom Filt Rate64- PINFBon [facility] State Hospital360Guanxi [facility] HospitalR&M Engineering [facility] HospitalComment on above: These results are not [...] that affects renal tubular secretion. Glucose [Mass/Vol]365 mg/wSPswo00 - 99 mg/dLBon Arizona State HospitalViaziz Scam Interpretation and review of laboratory resultsAbnormalLifepoint Hospitals360Guanxi [facility] Potassium [Moles/Vol]5.8 mmol/LHigh3.7 - 5.3 mmol/LBon [facility] State HospitalViaziz Scam Sodium [Moles/Vol]135 mmol/RPkh965 - 145 mmol/LBon [facility] State HospitalViaziz ScamUrea nitrogen [Mass/Vol]30 mg/dLHigh6 - 20 mg/dLBon [facility] and Health ServicesBasic Metabolic Profon 26-40-0688Esagn gap [Moles/Vol]13 mmol/L Normal9-16Riverside Methodist HospitalComment on above:Performed By: #### BMP ####[facility] [place] [address] Lab Director: Melvin Santoyo MD#### CDP ####[facility] [address] [place], [place] [phone] Director: Ed Mcduffie DOCalcium [Mass/Vol]9.6 mg/dLNormal8.6-10.4Riverside Methodist HospitalComment on above: Performed By: #### BMP ####[address] [place], [place] [phone] Director: Melvin Santoyo MD#### CDP ####[facility] [address] [place], [place] [phone] Director: Ed Mcduffie DOChloride [Moles/Vol]101 mmol/EVnezii07-162MtxeqRiverside Methodist HospitalComment on above:Performed By: #### BMP ####[address] [place], [place] [phone] Director: Melvin Santoyo MD#### CDP ####[address] [place], [place] [address] Lab Director: Ed Mcduffie DOCO2 [Moles/Vol]21 mmol/L Sszjed67-35VybbqSt. Elizabeth HospitalComcorewell health william [facility] hospital on above:Performed By: #### BMP ####[facility] [place], [place] [phone] Director: Melvin Santoyo MD#### CDP ####[facility] [address] [place] [address] [phone] Director: Ed Mcduffie DOCreatinine [Mass/Vol]1.1 mg/dLHigh0.50-0.90Riverside Methodist HospitalComcorewell health william [facility] hospital on above: Performed By: #### BMP ####[address] [phone] Director: Melvin Santoyo MD#### CDP ####[address] [phone] Director: Ed Mcduffie, DOGFR/1.73 sq M.predicted among non-blacks MDRD (S/P/Bld) [Vol rate/Area]64 mL/min/{1.73_m2}Normal>60MerSt. Elizabeth HospitalComment on above:Result Comment: These results are [...] renal tubular secretion.Performed By: #### BMP ####[address] [phone] Director: Melvin Santoyo MD#### CDP ####[address] [phone] Director: Ed Mcduffie, DOGlucose [Mass/Vol]365 mg/jLUckz28-77Ujlut [facility] CampusComment on above:Performed By: #### BMP ####[address] [phone] Director: Melvin Santoyo MD#### CDP ####[address] [phone] Director: Ed Mcduffie DOPotassium [Moles/Vol]5.8 mmol/LHigh3.7-5.3[facility] CampusComcorewell health william [facility] hospital on above:Performed By: #### BMP ####[address] [address] Lab Director: Melvin Santoyo MD#### CDP ####[facility] [address] [place], [place] [address] Lab Director: Ed Mcduffie DOSodium [Moles/Vol]135 mmol/L Dac072-849ChtgaRiverside Methodist HospitalComment on above:Performed By: #### BMP ####[facility] [address] [place] [address] Lab Director: Melvin Santoyo MD#### CDP ####[facility] [address] [place] [address] Lab Director: Ed Mcduffie DOUrea nitrogen [Mass/Vol]30 mg/dLHigh6-20Riverside Methodist HospitalComment on above: Performed By: #### BMP ####[facility] [address] [place] [address] Lab Director: Melvin Santoyo MD#### CDP ####[facility] [address] [place] [address] Lab Director: Ed Mcduffie DOCBC with Auto Differentialon 88-44-3805Iqjnvdnmd (Bld) [#/Vol]0.10 10*3/uLBon Wilson HealthBasophils/100 WBC (Bld)1 %0 - 2 %[facility] Hospital CenterEosinophils (Bld) [#/Vol]0.40 10*3/uLBon Wilson HealthEosinophils/100 WBC (Bld)6 %High0 - 4 %[facility] Hospital CenterErythrocyte distribution width (RBC) [Ratio]14.2 %11.5 - 14.9 %[facility] Hematocrit (Bld) [Volume fraction]36.3 %36 - 46 %[facility] Hemoglobin (Bld) [Mass/Vol]12.2 g/dL12.0 - 16.0 g/dLBon [facility] Interpretation and review of laboratory resultsAbnormalReston Hospital Center Lymphocytes/100 WBC (Bld)36 %24 - 44 %[facility] Hospital CenterLymphocytes/100 WBC (Bld)2.50 %[facility] CenterH (RBC) [Entitic mass]32.0 pg26 - 34 pg [facility] CenterHC (RBC) [Mass/Vol]33.7 g/dL31 - 37 g/dLBon [facility]ostoria City HospitalV (RBC) [Entitic vol]94.9 fL80 - 100 fLReston Hospital Center Monocytes/100 WBC (Bld)6 %1 - 7 %[facility] CenterMonocytes/100 WBC (Bld) 0.40 %[facility] CenterNeutrophils/100 WBC (Bld)51 %36 - 66 %[facility] Hospital CenterPlatelet mean volume (Bld) [Entitic vol]7.7 fL6.0 - 12.0 fLReston Hospital CenterPlatelets (Bld) [#/Vol]514 10*3/uLHighReston Hospital CenterRBC (Bld) [#/Vol]3.82 10*6/uLLow4.0 - 5.2 m/uLReston Hospital Center Segmented neutrophils/100 WBC (Bld)3.60 %[facility] Hospital CenterWBC other (Bld) [#/Vol]7.0Bon [facility] Health ServicesCBC with Diffon 01-82-9947Vuc. Basophil0.10 k/uLNormal0.0-0.2[facility] CampusComment on above:Performed By: #### BMP ####[facility] [address] [place] [address] Lab Director: Melvin Santoyo MD#### CDP ####[facility] [address] [place] [address] Lab Director: Ed Mcduffie DOAbs.Neutrophil (Seg)3.60 k/uLNormal1.3-9.1[facility] CampusComcorewell health [facility] on above:Performed By: #### BMP ####[address] [phone] Director: Melvin Santoyo MD#### CDP ####[facility] [address] [place] [address] Lab Director: Ed Mcduffie DOBasophils/100 WBC (Bld)1 % Normal0-2[facility] CampusComcorewell health [facility] on above:Performed By: #### BMP ####[address] [phone] Director: Melvin Santoyo MD#### CDP ####[address] [phone] Director: Ed Mcduffie DOEosinophils (Bld) [#/Vol]0.40 10*3/uLNormal0.0-0.4R[facility] Methodist HospitalComcorewell health [facility] on above:Performed By: #### BMP ####[address] [phone] Director: Melvin Santoyo MD#### CDP ####[address] [phone] Director: Ed Mcduffie DOEosinophils/100 WBC (Bld)6 %High0-4[facility] on above:Performed By: #### BMP ####[address] [phone] Director: Melvin Santoyo MD#### CDP ####[address] [address] Lab Director: Ed Mcduffie DOErythrocyte distribution width (RBC) [Ratio]14.2 %Txrcah85.5-14.9[facility] on above:Performed By: #### BMP ####[address] [place] [address] Lab Director: Melvin Santoyo MD#### CDP ####[address] [address] Lab Director: Ed Mcduffie DOHematocrit (Bld) [Volume fraction]36.3 %Noprbm15-85HrlugRiverside Methodist HospitalComcorewell health [facility] on above:Performed By: #### BMP ####[address] [address] Lab Director: Melvin Santoyo MD#### CDP ####[address] [address] Lab Director: Ed Mcduffie DOHemoglobin (Bld) [Mass/Vol]12.2 g/zVYyyhas08.0-16.0R[facility] HospitalComcorewell health [facility] on above:Performed By: #### BMP ####[address] [address] Lab Director: Melvin Santoyo MD#### CDP ####[address] [address] Lab Director: Ed Mcduffie DOLymphocytes (Bld) [#/Vol]2.50 10*3/uLNormal1.0-4.8R[facility] HospitalComcorewell health [facility] on above:Performed By: #### BMP ####[address] [address] Lab Director: Melvin Santoyo MD#### CDP ####[address] [address] Lab Director: Ed Mcduffie DO Lymphocytes/100 WBC (Bld)36 %Jbaznd27-94LtfmcPike Community Hospital on above:Performed By: #### BMP ####[address] [address] Lab Director: Melvin Santoyo MD#### CDP ####[address] [place] [address] Lab Director: Ed Mcduffie DOMCH (RBC) [Entitic mass]32.0 wwXlpxzd53-09PrrziRiverside Methodist HospitalComment on above:Performed By: #### BMP ####[address] [phone] Director: Melvin Santoyo MD#### CDP ####[address] [address] Lab Director: Ed Mcduffie DOMCHC (RBC) [Mass/Vol]33.7 g/wBIgrwpp83-51DejjuRiverside Methodist HospitalComment on above:Performed By: #### BMP ####[address] [address] Lab Director: Melvin Santoyo MD#### CDP ####[address] [address] Lab Director: Ed Mcduffie DOMCV (RBC) [Entitic vol]94.9 xNKmztzs34-196LjcdqRiverside Methodist HospitalComment on above:Performed By: #### BMP ####[address] [phone] Director: Melvin Santoyo MD#### CDP ####[address] [address] Lab Director: Ed Mcduffie DOMonocytes (Bld) [#/Vol]0.40 10*3/uLNormal0.1-1.3[facility] CampusComment on above:Performed By: #### BMP ####[address], [place] [phone] Director: Melvin Santoyo MD#### CDP ####[facility] [address] [place], [place] [phone] Director: Ed Mcduffie DO Monocytes/100 WBC (Bld)6 %Normal1-7R[facility] Methodist HospitalComment on above: Performed By: #### BMP ####[address] [phone] Director: Melvin Santoyo MD#### CDP ####[facility] [address] [place], [place] [phone] Director: Ed Mcduffie DONeutrophil (Seg)51 %Thibus02-56NeymwRiverside Methodist Hospital Comment on above:Performed By: #### BMP ####[address] [phone] Director: Melvin Santoyo MD#### CDP ####[address] [place], [place] [address] Lab Director: Ed Mcduffie DOPlatelet mean volume (Bld) [Entitic vol]7.7 fLNormal6.0-12.0R[facility] Methodist HospitalComment on above: Performed By: #### BMP ####[address] [phone] Director: Melvin Santoyo MD#### CDP ####[facility] [address] [place], [place] [phone] Director: Ed Mcduffie DOPlatelets (Bld) [#/Vol]514 10*3/hOCjlt951-507AuuusRiverside Methodist HospitalComment on above:Performed By: #### BMP ####[facility] [address] [place] [address] [phone] Director: Melvin Santoyo MD#### CDP ####[facility] [address] [facility] [place] [address] Lab Director: Ed Mcduffie DORBC (Blkatherine) [#/Vol]3.82 10*6/uLLow4.0-5.2[facility] CampusComment on above: Performed By: #### BMP ####[facility] [address] [place] [address] Lab Director: Melvin Santoyo MD#### CDP ####[facility] [address] [facility] [place] [address] Lab Director: Ed Mcduffie DOWBC (Bld) [#/Vol]7.0 10*3/uLNormal3.5-11.0[facility] CampusComment on above:Performed By: #### BMP ####[facility] [address] [place] [address] Lab Director: Melvin Santoyo MD#### CDP ####[facility] [address] [place], [place] [address] Lab Director: Ed Mcduffie DOXR Foot - left 3 Viewson . Redemonstrated findings compatible with a Lisfranc ligament injury, with midfoot dislocation. 2. Fractures of the cuneiforms and 2nd metatarsal are better visualized on comparison CT. [facility] RIS CONSOLIDATEDEXAMINATION: THREE XRAY VIEWS OF THE [...] and forefoot. No large ankle joint effusion. [facility] Yusuf Hall MD - 07/14/2024 EXAMINATION: THREE [...] metatarsal are better visualized on comparison CT. [facility] CenterRadiology Study observation (narrative)[facility] CenterXR Foot - left 3 ViewsOrdered By: Yusuf Singh on 68-63-3451Qog [facility] Work Phone: CT Foot - left WO contraston . Dislocation of the midfoot. 2. Fractures of the medial, middle and lateral cuneiforms. 3. Fracture of the proximal aspect of the 2nd metatarsal. 4. Small osseous fragments at the dorsal aspect of the 4th and 5th metatarsals. [facility] CONSOLIDATEDEXAMINATION: CT OF THE LEFT FOOT WITHOUT [...] by hemorrhage. Joint: Dislocation of the midfoot [facility] Sonia Christie MD - 07/13/2024 EXAMINATION: CT [...] aspect of the 4th and 5th metatarsals. [facility] CenterRadiology Study observation (narrative)[facility] Foot - left WO contrastOrdered By: Sonia Farrell on 51-25-2037Wbw [facility] Work Phone: Glucose, Whole Bloodon 02-43-4174Wdfebru [Mass/Vol]101 mg/qLTvid79 - 100 mg/dLBon [facility] HealthInterpretation and review of laboratory resultsAbnormalBon [facility] and Health ServicesXR Foot - left 3 Viewson 90-18-6951Cofatzak of the space between the 1st and 2nd metatarsal base that may relate to a Lisfranc ligament injury and subsequent tarsometatarsal dislocation involving at least the 2nd digit. CT of the foot may be helpful in further characterization. Soft tissue swelling. [facility] CONSOLIDATEDEXAMINATION: THREE XRAY VIEWS OF THE LEFT [...] are maintained. There is soft tissue swelling. [facility] Vern Parks MD - 07/13/2024 EXAMINATION: THREE [...] helpful in further characterization. Soft tissue swelling. [facility] CenterRadiology Study observation (narrative)[facility] CenterXR Foot - left 3 ViewsOrdered By: Vern Olivo on 02-88-8272Zsf [facility] Work Phone: ct Sinuses WO contraston 03-68-2984Lu evidence of acute sinusitis. [facility] CONSOLIDATEDEXAMINATION: CT OF THE SINUS WITHOUT CONTRAST [...] IMPRESSION: No evidence of acute sinusitis. Bon [email or web address] Sinuses WO contrastOrdered By: Efra Sullivan on 83-42-4378Kyi [email or web address] Work Phone: Basic Metabolic Panelon 13-24-4960Nprin gap [Moles/Vol]13 mmol/L9 - 16 mmol/LBon [email or web address].comCalcium [Mass/Vol]9.7 mg/dL8.6 - 10.4 mg/dLBon [facility] HealthChloride [Moles/Vol]101 mmol/L98 - 107 mmol/LBon [facility] HealthCO2 [Moles/Vol]23 mmol/L20 - 31 mmol/LBon [facility] HealthCreatinine [Mass/Vol]1.4 mg/dLHigh0.50 - 0.90 mg/dLBon [facility] HealthEst, Glom Filt Dvps67Bme- PINFBon [facility] Comment on above: These results are not [...] that affects renal tubular secretion. Glucose [Mass/Vol]315 mg/bZVdsh00 - 99 mg/dLBon [facility] Interpretation and review of laboratory resultsAbnormalReston Hospital Center Potassium [Moles/Vol]5.6 mmol/LHigh3.7 - 5.3 mmol/LBon [facility] Sodium [Moles/Vol]137 mmol/L136 - 145 mmol/LBon [facility] HealthUrea nitrogen [Mass/Vol]29 mg/dLHigh6 - 20 mg/dLBon [facility] HealthUrea nitrogen/Creatinine [Mass ratio]21 mg/mgHigh9 - 20Bon [facility] and Health ServicesCT Sinuses WO contraston 70-26-2471Cfzmohiws Study observation (narrative)Bon [facility] HealthTS with Reflexon 54-41-0621MOE Qn0.62 m[IU]/LBON ST. [facility]ARE CENTERXR Chest 2 Viewson 79-92-3143Nm radiographic evidence of acute cardiopulmonary disease. MHPN [...] No radiographic evidence of acute cardiopulmonary disease. [facility]CR[facility] observation (narrative)[facility]XR Chest 2 ViewsOrdered By: Jesus Otero on 03-92-2410UKN [facility] Work Phone: cbc with Auto Differentialon 14-39-8196Tjwdeyqvz (Bld) [#/Vol]0.00 10*3/uLBON PAULDING COUNTY HOSPITALBasophils/100 WBC (Bld)0 %0 - 2 %[facility] CLINICEosinophils (Bld) [#/Vol]0.00 10*3/uLBON PAULDING COUNTY HOSPITALEosinophils/100 WBC (Bld)0 %Low1 - 4 %[facility] CLINICErythrocyte distribution width (RBC) [Ratio]13.1 %11.8 - 14.4 %[facility] Hematocrit (Bld) [Volume fraction]44.3 %36.3 - 47.1 %[facility] Hemoglobin (Bld) [Mass/Vol]14.6 g/dL11.9 - 15.1 g/dLBON PAULD[facility] Immature granulocytes (Bld) [#/Vol]0.25 10*3/uLBON PAULDING COUNTY HOSPITALImmature granulocytes/100 WBC (Bld)2 %Xrjp7RVICARILION CLINICInterpretation and review of laboratory resultsAbnormalBON PAULDING COUNTY HOSPITALLymphocytes/100 WBC (Bld)20 %Low24 - 43 %[facility]INICLymphocytes/100 WBC (Bld)2.46 %[facility]ENTERH (RBC) [Entitic mass]31.3 pg25.2 - 33.5 pgCJW MEDICAL CENTERHC (RBC) [Mass/Vol]33.0 g/dL28.4 - 34.8 g/dLBON PAULDING COUNTY HOSPITALMCV (RBC) [Entitic vol]95.1 fL82.6 - 102.9 fLCARILION CLINIC Monocytes/100 WBC (Bld)6 %3 - 12 %[facility] CLINICMonocytes/100 WBC (Bld)0.74 %CARILION CLINICMorphology Alejo (Bld) [Interp]ANISOCYTOSIS PRESENTCARILION CLINICNeutrophils/100 WBC (Bld)72 %High36 - 65 %[facility]ION CLINICNucleated RBC/100 WBC (Bld) [Ratio]0.0 %0.0 per 100 WBCCARILION CLINICPlatelet mean volume (Bld) [Entitic vol]8.8 fL8.1 - 13.5 fL [facility] CLINICPlatelets (Bld) [#/Vol]438 10*3/uLBON PAULDING COUNTY HOSPITALRBC (Bld) [#/Vol]4.66 10*6/uL3.95 - 5.11 m/uLCARILION CLINIC Segmented neutrophils/100 WBC (Bld)8.85 %HighCARILION CLINICWBC other (Bld) [#/Vol]12.3HighRUSSELL COUNTY MEDICAL CENTERCT Head WO Contraston [id number] acute intracranial abnormality. MHPN RIS CONSOLIDATEDEXAMINATION: CT [...] is intact. Extracranial soft tissues are unremarkable. [facility] Brandon Valencia MD - 06/16/2023 EXAMINATION: CT [...] are unremarkable. IMPRESSION: No acute intracranial abnormality. [facility] StoreFlixUNIVERSITY HOSPITALS ELYRIA MEDICAL CENTERRadiology Study observation (narrative)[facility]CREST HOSPITALKona Group WHITE HOSPITALCT Head WO ContrastOrdered By: Brandon Morfin on [id number] Zalando Work Phone: Comprehensive Metabolic Panelon [id number] [Mass/Vol]4.5 g/dL3.5 - 5.2 g/dLBON ZalandoAlbumin/Globulin [Mass ratio]1.4 {ratio}1.0 - 2.5BON ZalandoALP [Catalytic activity/Vol]59 U/L35 - 104 U/LBON [facility]IL[facility] HOSPITALAloricaALT [Catalytic activity/Vol]30 U/L5 - 33 U/LBON [facility]HABIL[facility]ATION HOSPITALAloricaAnion gap [Moles/Vol]10 mmol/L9 - 17 mmol/LBON [facility] HOSPITALAST [Catalytic activity/Vol]33 U/LHighNINF - 32 U/LBON [facility] HOSPITALBilirubin [Mass/Vol]0.3 mg/dL0.3 - 1.2 mg/dLBON SECSELECT MEDICAL SPECIALTY HOSPITAL - CLEVELAND-FAIRHILLCalcium [Mass/Vol]9.9 mg/dL8.6 - 10.4 mg/dLBON [facility] Chloride [Moles/Vol]99 mmol/L98 - 107 mmol/LBON [facility] HOSPITALCO2 [Moles/Vol]26 mmol/L20 - 31 mmol/LBON [facility] HOSPITALCreatinine [Mass/Vol] 1.0 mg/dLHigh0.5 - 0.9 mg/dLBON [facility] MusiCaresGFR/1.73 sq M.predicted MDRD (S/P/Bld) [Vol rate/Area]- PINFBON PAULDING COUNTY HOSPITALComment on above: These results are not intended [...] that affects renal tubular secretion. Glucose [Mass/Vol]109 mg/wVYxgz37 - 99 mg/dLBON [facility] MusiCares Interpretation and review of laboratory resultsAbnormalCARILION CLINIC Potassium [Moles/Vol]5.0 mmol/L3.7 - 5.3 mmol/LBON [facility]OSPITALProtein [Mass/Vol]7.8 g/dL6.4 - 8.3 g/dLBON PAULDING COUNTY HOSPITALSodium [Moles/Vol]135 mmol/L135 - 144 mmol/LBON [facility] MusiCaresUrea nitrogen [Mass/Vol]29 mg/dL High6 - 20 mg/dLBON PAULDING COUNTY HOSPITALUrea nitrogen/Creatinine [Mass ratio]29 mg/mgHigh9 - 20BON [facility] COUNTY HOSPITALBON SECSELECT MEDICAL SPECIALTY HOSPITAL - CLEVELAND-FAIRHILLTroponinon 62-72-3831Cjavsddbiqahtj and review of laboratory resultsAbnormalCARILION CLINICTroponin I.cardiac High sensitivity method [Mass/Vol]15 ng/LHigh0 - 14 ng/LBON [facility]OSPITALComment on above:High Sensitivity Troponin values cannot be compared with other Troponin methodologies.HILLCREST HOSPITALAloricaXR CHEST PORTABLEon [id number] prominence of pulmonary vasculature and interstitium related to technique versus developing pulmonary edema. [facility] CONSOLIDATEDEXAMINATION: ONE XRAY VIEW OF THE CHEST 06/16/2023 6:31 pm COMPARISON: June 10, 2023 and additional prior exams. HISTORY: ORDERING SYSTEM PROVIDED HISTORY: Syncope TECHNOLOGIST PROVIDED HISTORY: Syncope FINDINGS: Mild increased prominence of the pulmonary vasculature and interstitium. No pleural effusion or pneumothorax identified. Cardiac and mediastinal silhouettes are within normal limits. No acute osseous abnormality identified. [facility] Jason Leal MD - 06/16/2023 EXAMINATION: ONE [...] related to technique versus developing pulmonary edema. [facility] CLINICRadiology Study observation (narrative)HILLCREST HOSPITALAlorica CHEST PORTABLEOrdered By: Jason Long on [id number] [facility] MusiCares Work Phone: Basic Metabolic Panel w/ Reflex to MGon 06-14-2023 Anion gap [Moles/Vol]11 mmol/L9 - 17 mmol/LBON [facility] MusiCaresCalcium [Mass/Vol]9.9 mg/dL8.6 - 10.4 mg/dLBON FREMONT HOSPITALThinkorswim GroupChloride [Moles/Vol] 98 mmol/L98 - 107 mmol/LBON [facility]REMONT HOSPITALcWyze WHITE HOSPITALCO2 [Moles/Vol]26 mmol/L20 - 31 mmol/LBON FREMONT HOSPITALThinkorswim GroupCreatinine [Mass/Vol]0.9 mg/dL0.5 - 0.9 mg/dLBON FREMONT HOSPITALThinkorswim GroupGFR/1.73 sq M.predicted MDRD (S/P/Bld) [Vol rate/Area]- PINF [facility] CLINICComment on above: These results are not intended [...] that affects renal tubular secretion. Glucose [Mass/Vol]186 mg/dGUjyz93 - 99 mg/dLBON [facility] Interpretation and review of laboratory resultsAbnormalBON [facility] Potassium [Moles/Vol]4.4 mmol/L3.7 - 5.3 mmol/LBON SECSELECT MEDICAL SPECIALTY HOSPITAL - CLEVELAND-FAIRHILLSodium [Moles/Vol]135 mmol/L135 - 144 mmol/LBON [facility] COUNTY HOSPITALUrea nitrogen [Mass/Vol]30 mg/dLHigh6 - 20 mg/dLBON PAULDING COUNTY HOSPITALUrea nitrogen/Creatinine [Mass ratio]33 mg/mgHigh9 - 20BON [facility] HOSPITALBON PAUL[facility] COUNTY HOSPITALCBC auto differentialon [id number] (Bld) [#/Vol] 0.03 10*3/uLBON [facility] FOR REHABILITATIONY WHITE HOSPITALBasophils/100 WBC (Bld)0 %0 - 2 %[facility] REH[facility]Y WHITE HOSPITALEosinophils (Bld) [#/Vol]BON [facility] HEALTHEosinophils/100 WBC (Bld)0 %Low1 - 4 %[facility] WHITE HOSPITALErythrocyte distribution width (RBC) [Ratio]13.4 %11.8 - 14.4 %BON [facility] HEALTHHematocrit (Bld) [Volume fraction]35.7 %Low36.3 - 47.1 %BON [facility]ABIL[facility]ATIONY HEALTHHemoglobin (Bld) [Mass/Vol]11.5 g/dLLow11.9 - 15.1 g/dLBON SECPEACEHEALTHY WHITE HOSPITALImmature granulocytes (Bld) [#/Vol]0.32 10*3/uLHighBON [facility]OU[facility] REHABILITATIONY HEALTHImmature granulocytes/100 WBC (Bld)3 %Ltqu7VMUCARILION CLINICInterpretation and review of laboratory resultsAbnormalBON [facility] HEALTHLymphocytes/100 WBC (Bld)16 %Low24 - 43 %BON SECSELECT MEDICAL SPECIALTY HOS[facility]ITAL - CLEVELAND-FAIRHILLLymphocytes/100 WBC (Bld)1.82 %BON [facility] HOSPITALH (RBC) [Entitic mass]31.1 pg25.2 - 33.5 pgBON FAYETTE COUNTY MEMORIAL HOSPITALHC (RBC) [Mass/Vol]32.2 g/dL28.4 - 34.8 g/dLBON SECUPPER VALLEY MEDICAL CENTERV (RBC) [Entitic vol]96.5 fL82.6 - 102.9 fLCARILION CLINIC Monocytes/100 WBC (Bld)5 %3 - 12 %[facility] CLINICMonocytes/100 WBC (Bld)0.52 %[facility] CLINICNeutrophils/100 WBC (Bld)77 %High36 - 65 %[facility] CLINICNucleated RBC/100 WBC (Bld) [Ratio]0.0 %0.0 per 100 WBCBON PAULDING COUNTY HOSPITALPlatelet mean volume (Bld) [Entitic vol]9.2 fL8.1 - 13.5 fL [facility] HEALTHPlatelets (Bld) [#/Vol]355 10*3/uLBON [facility]UL[facility]ING COUNTY HOSPITALRBC (Bld) [#/Vol]3.70 10*6/uLLow3.95 - 5.11 m/uLCARILION CLINIC Segmented neutrophils/100 WBC (Bld)8.74 %HighCARILION CLINICWBC other (Bld) [#/Vol]11.4HighBON ST. MARY'S HEALTHCARE CENTERGlucose, Whole Bloodon 21-68-0552Xgabqjp [Mass/Vol]228 mg/sDNtbz57 - 100 mg/dLBON [facility] HEALTHInterpretation and review of laboratory resultsAbnormalBON ST. MARY'S HEALTHCARE CENTERGlucose [Mass/Vol]167 mg/iWBwla86 - 100 mg/dLBON [facility] HEALTHInterpretation and review of laboratory results AbnormalBON ST. MARY'S HEALTHCARE CENTERBasic Metabolic Panel w/ Reflex to MGon 85-95-2476Ndthp gap [Moles/Vol]12 mmol/L9 - 17 mmol/LBON [facility] HOSPITALCalcium [Mass/Vol]9.7 mg/dL8.6 - 10.4 mg/dLBON [facility] Chloride [Moles/Vol]103 mmol/L98 - 107 mmol/LBON [facility] HOSPITALCO2 [Moles/Vol]23 mmol/L20 - 31 mmol/LBON [facility]OSPITALCreatinine [Mass/Vol] 0.7 mg/dL0.5 - 0.9 mg/dLBON PAUL[facility] COUNTY HOSPITALGFR/1.73 sq M.predicted MDRD (S/P/Bld) [Vol rate/Area]- PINFBON PAULDING COUNTY HOSPITALComment on above: These results are not intended [...] that affects renal tubular secretion. Glucose [Mass/Vol]199 mg/cAFcml08 - 99 mg/dLBON [facility] Interpretation and review of laboratory resultsAbnormalCARILION CLINIC Potassium [Moles/Vol]4.3 mmol/L3.7 - 5.3 mmol/LBON [facility] HOSPITALSodium [Moles/Vol]138 mmol/L135 - 144 mmol/LBON [facility] HOSPITALUrea nitrogen [Mass/Vol]28 mg/dLHigh6 - 20 mg/dLBON PAULDING COUNTY HOSPITALUrea nitrogen/Creatinine [Mass ratio]40 mg/mgHigh9 - 20BON ST. MARY'S HEALTHCARE CENTERCBC auto differentialon [id number] (Bld) [#/Vol]BON [facility]OSPITALBasophils/100 WBC (Bld)0 %0 - 2 %[facility] Eosinophils (Bld) [#/Vol]BON [facility] COUNTY HOSPITALEosinophils/100 WBC (Bld)0 %Low 1 - 4 %[facility]ERY HEALTHErythrocyte distribution width (RBC) [Ratio]13.6 %11.8 - 14.4 %BON [facility]HABIL[facility]ATIONY HEALTHHematocrit (Bld) [Volume fraction]38.0 % 36.3 - 47.1 %[facility] HEALTHHemoglobin (Bld) [Mass/Vol]12.2 g/dL11.9 - 15.1 g/dLBON [facility] HEALTHImmature granulocytes (Bld) [#/Vol]0.24 10*3/uL [facility] HEALTHImmature granulocytes/100 WBC (Bld)2 %Thaj0TEX [facility]ABIL[facility]ATIONY HEALTHInterpretation and review of laboratory resultsAbnormalBON [facility]ATIONY HEALTHLymphocytes/100 WBC (Bld)14 %Low24 - 43 %BON [facility] HEALTH Lymphocytes/100 WBC (Bld)1.87 %BON [facility] HOSPITALMCH (RBC) [Entitic mass] 31.2 pg25.2 - 33.5 pgBON SEC[facility]ITALHC (RBC) [Mass/Vol]32.1 g/dL28.4 - 34.8 g/dLBON [facility] REHABIL[facility]ATIONY WHITE HOSPITALMCV (RBC) [Entitic vol]97.2 fL82.6 - 102.9 fL [facility] HEALTHMonocytes/100 WBC (Bld)5 %3 - 12 %[facility]ATIONY HEALTHMonocytes/100 WBC (Bld)0.60 %B[facility] HEALTHNeutrophils/100 WBC (Bld)80 %High36 - 65 %BON [facility] HOSPITALNucleated RBC/100 WBC (Bld) [Ratio]0.0 %0.0 per 100 WBCBON [facility] REHABILITATIONY HEALTHPlatelet mean volume (Bld) [Entitic vol]9.5 fL8.1 - 13.5 fLBON [facility]RS [facility]CY HEALTHPlatelets (Bld) [#/Vol] 226 10*3/uLBON [facility] FOR REHABILITATIONY HEALTHRBC (Bld) [#/Vol]3.91 10*6/uLLow3.95 - 5.11 m/uLBON [facility] REHABIL[facility]ATIONY HEALTHSegmented neutrophils/100 WBC (Bld)10.70 %HighBON [facility]DR[facility] REHABILITATIONY WHITE HOSPITALWBC other (Bld) [#/Vol]13.4HighRUSSELL COUNTY MEDICAL CENTEREKG Rhythm Stripon 33-96-2907UBUZRGRANT REGIONAL HEALTH [facility]ENTER LABCARILION CLINICGlucose, Whole Bloodon 57-05-7467Kqiondr [Mass/Vol]207 mg/vJJdvp99 - 100 mg/dLBON PA[facility]ING COUNTY HOSPITALInterpretation and review of laboratory resultsAbnormHenrico Doctors' Hospital—Henrico CampusGlucose [Mass/Vol]217 mg/pUVlad72 - 100 mg/dLBON [facility] COUNTY HOSPITALInterpretation and review of laboratory resultsAbnormHenrico Doctors' Hospital—Henrico CampusGlucose [Mass/Vol]197 mg/rFHqqh09 - 100 mg/dLBON [facility] COUNTY HOSPITALInterpretation and review of laboratory results AbnormalRUSSELL COUNTY MEDICAL CENTERGlucose [Mass/Vol]180 mg/bHXnal64 - 100 mg/dLBON [facility] COUNTY HOSPITALInterpretation and review of laboratory resultsAbnormHenrico Doctors' Hospital—Henrico CampusBasic Metabolic Panel w/ Reflex to MGon 17-76-2454Muuku gap [Moles/Vol]12 mmol/LBON [facility] HEALTHCalcium [Mass/Vol]9.3 mg/dL8.6 - 10.4 mg/dLBON [facility] HEALTHChloride [Moles/Vol]99 mmol/L98 - 107 mmol/LBON [facility] HEALTHCO2 [Moles/Vol]24 mmol/L20 - 31 mmol/LBON [facility] HEALTHCreatinine [Mass/Vol] 0.8 mg/dL0.5 - 0.9 mg/dLBON [facility] HEALTHGFR/1.73 sq M.predicted MDRD (S/P/Bld) [Vol rate/Area]- PINFBON PAULDING COUNTY HOSPITALComment on above: These results are not intended [...] that affects renal tubular secretion. Glucose [Mass/Vol]295 mg/xEIpdu66 - 99 mg/dLBON [facility] Interpretation and review of laboratory resultsAbnormalCARILION CLINIC Potassium [Moles/Vol]4.7 mmol/L3.7 - 5.3 mmol/LBON [facility] HOSPITALSodium [Moles/Vol]135 mmol/L135 - 144 mmol/LBON [facility] HOSPITALUrea nitrogen [Mass/Vol]23 mg/dLHigh6 - 20 mg/dLBON [facility]UL[facility] COUNTY HOSPITALUrea nitrogen/Creatinine [Mass ratio]29 mg/mgHigh9 - 20BON ST. MARY'S HEALTHCARE CENTERCBC auto differentialon 42-75-5527Liszlyojr (Bld) [#/Vol] 0.04 10*3/uLBON [facility]OSPITALBasophils/100 WBC (Bld)0 %0 - 2 %[facility]ILION CLINICEosinophils (Bld) [#/Vol]BON [facility] HOSPITALOURS C[facility] CLINIC MENTOR HOSPITALEosinophils/100 WBC (Bld)0 %Low1 - 4 %[facility]ION CLINICErythrocyte distribution width (RBC) [Ratio]13.7 %11.8 - 14.4 %[facility]ION CLINICHematocrit (Bld) [Volume fraction]34.5 %Low36.3 - 47.1 %[facility] CLINICHemoglobin (Bld) [Mass/Vol]11.2 g/dLLow11.9 - 15.1 g/dLBON PAUL[facility] COUNTY HOSPITALImmature granulocytes (Bld) [#/Vol]0.18 10*3/uLBON [facility] Medical Centermature granulocytes/100 WBC (Bld)1 %Ylim1BVU [facility] COUNTY HOSPITALInterpretation and review of laboratory resultsAbnormalBON PAULDING COUNTY HOSPITALLymphocytes/100 WBC (Bld)10 %Low24 - 43 %[facility] CLINICLymphocytes/100 WBC (Bld)1.59 %[facility] CLINICMCH (RBC) [Entitic mass]31.6 pg25.2 - 33.5 pgBON PAULDING COUNTY HOSPITALMCHC (RBC) [Mass/Vol]32.5 g/dL28.4 - 34.8 g/dLBON [facility]ULD[facility] COUNTY HOSPITALMCV (RBC) [Entitic vol]97.5 fL82.6 - 102.9 fLCARILION CLINIC Monocytes/100 WBC (Bld)2 %Low3 - 12 %[facility] CLINICMonocytes/100 WBC (Bld)0.30 %[facility] CLINICNeutrophils/100 WBC (Bld)87 %High36 - 65 %[facility] CLINICNucleated RBC/100 WBC (Bld) [Ratio]0.0 %0.0 per 100 WBCCARILION CLINICPlatelet mean volume (Bld) [Entitic vol]10.6 fL8.1 - 13.5 fL [facility] HEALTHPlatelets (Bld) [#/Vol]367 10*3/uLBON [facility] COUNTY HOSPITALRBC (Bld) [#/Vol]3.54 10*6/uLLow3.95 - 5.11 m/uLCARILION CLINIC Segmented neutrophils/100 WBC (Bld)14.32 %HighCARILION CLINICWBC other (Bld) [#/Vol]16.4HighRUSSELL COUNTY MEDICAL CENTEREKG Rhythm Stripon 53-81-6861DUUDLSELECT MEDICAL [facility] LABCARILION CLINICGlucose, Whole Bloodon 14-93-6187Suqbzas [Mass/Vol]175 mg/qQZbkw06 - 100 mg/dLBON [facility] Interpretation and review of laboratory resultsAbnormalSHENANDOAH MEMORIAL HOSPITALGlucose [Mass/Vol]567 mg/dLCritically high74 - 100 mg/dL [facility]ICInterpretation and review of laboratory resultsAbnormal [facility] CENTERGlucose [Mass/Vol]199 mg/dLHigh 74 - 100 mg/dLBON [facility] COUNTY [facility]OSPITALInterpretation and review of laboratory resultsAbnormalBON ST. MARY'S HEALTHCARE CENTERGlucose [Mass/Vol]249 mg/bGYebb93 - 100 mg/dLBON [facility] COUNTY HOSPITALInterpretation and review of laboratory resultsAbnormHenrico Doctors' Hospital—Henrico CampusGlucose [Mass/Vol]283 mg/tHSbia49 - 100 mg/dLBON [facility] Interpretation and review of laboratory resultsAbnormMary Washington HospitalBasic Metabolic Panel w/ Reflex to MGon 59-35-8313Qzhwp gap [Moles/Vol]10 mmol/L9 - 17 mmol/LBON [facility]OSPITALCalcium [Mass/Vol] 9.1 mg/dL8.6 - 10.4 mg/dLBON [facility] COUNTY HOSPITALChloride [Moles/Vol]105 mmol/L 98 - 107 mmol/LBON [facility]OSPITALCO2 [Moles/Vol]26 mmol/L20 - 31 mmol/LBON [facility]OSPITALCreatinine [Mass/Vol]1.0 mg/dLHigh0.5 - 0.9 mg/dLBON [facility] COUNTY HOSPITALGFR/1.73 sq M.predicted MDRD (S/P/Bld) [Vol rate/Area]- SHENANDO[facility] MEMORIAL HOSPITALComment on above: These results are not intended [...] that affects renal tubular secretion. Glucose [Mass/Vol]153 mg/eBWalp21 - 99 mg/dLBON [facility] Interpretation and review of laboratory resultsAbnoRiverside Behavioral Health Center Potassium [Moles/Vol]4.7 mmol/L3.7 - 5.3 mmol/LBON [facility] HOSPITALSodium [Moles/Vol]141 mmol/L135 - 144 mmol/LBON [facility] HOSPITALUrea nitrogen [Mass/Vol]13 mg/dL6 - 20 mg/dLBON PAULDING COUNTY HOSPITALUrea nitrogen/Creatinine [Mass ratio]13 mg/mg9 - 20BON ST. MARY'S HEALTHCARE CENTERBrain Natriuretic Peptideon 79-41-4841Qdocpkeoxqh peptide B (Bld) [Mass/Vol]74 pg/mL NINF - 300 pg/mLCARILION CLINICComment on above: An age-independent cutoff point of 300 pg/ml has a 98% negative predictive value excluding acute heart failure. [facility]INICCBC auto differentialon 70-81-0868Bqhdiwbap (Bld) [#/Vol]0.06 10*3/uLBON [facility] COUNTY [facility]OSPITALBasophils/100 WBC (Bld)1 %0 - 2 %[facility]ION CLINICEosinophils (Bld) [#/Vol]0.34 10*3/uLBON PAULDING COUNTY HOSPITALEosinophils/100 WBC (Bld)3 %1 - 4 %[facility]ION CLINICErythrocyte distribution width (RBC) [Ratio]14.0 %11.8 - 14.4 %[facility] Hematocrit (Bld) [Volume fraction]37.6 %36.3 - 47.1 %[facility] Hemoglobin (Bld) [Mass/Vol]12.0 g/dL11.9 - 15.1 g/dLBON [facility] Immature granulocytes (Bld) [#/Vol]0.12 10*3/uLBON [facility] COUNTY [facility]OSPITALImmature granulocytes/100 WBC (Bld)1 %Fmdn3NSXCARILION CLINICInterpretation and review of laboratory resultsAbnormalCARILION CLINICLymphocytes/100 WBC (Bld)20 %Low24 - 43 %[facility] CLINICLymphocytes/100 WBC (Bld)2.45 %[facility] CENTERH (RBC) [Entitic mass]31.6 pg25.2 - 33.5 pgCJW MEDICAL CENTERHC (RBC) [Mass/Vol]31.9 g/dL28.4 - 34.8 g/dLBON FAYETTE COUNTY MEMORIAL HOSPITALV (RBC) [Entitic vol]98.9 fL82.6 - 102.9 fLCARILION CLINIC Monocytes/100 WBC (Bld)2 %Low3 - 12 %[facility] HEALTHMonocytes/100 WBC (Bld)0.30 %[facility] REHABIL[facility]ATIONY HEALTHNeutrophils/100 WBC (Bld)73 %High36 - 65 %[facility]AB[facility]ATIONY HEALTHNucleated RBC/100 WBC (Bld) [Ratio]0.0 %0.0 per 100 WBCBON SECOURS [facility]DR[facility] FOR REHABILITATIONY HEALTHPlatelet mean volume (Bld) [Entitic vol]9.4 fL8.1 - 13.5 fL [facility] REHABIL[facility]ATIONY HEALTHPlatelets (Bld) [#/Vol]297 10*3/uLBON [facility] REHABILITATIONY HEALTHRBC (Bld) [#/Vol]3.80 10*6/uLLow3.95 - 5.11 m/uLRIVERSIDE TAPPAHANNOCK HOSPITAL HEALTH Segmented neutrophils/100 WBC (Bld)9.30 %HighTUBA CITY REGIONAL HEALTH CARE CORPORATION [facility] REHABIL[facility]ATIONY HEALTHWBC other (Bld) [#/Vol]12.6HighHILLCREST HOSPITALOURS [facility] HEALTHBON [facility] HEALTHEKG 12 Lead on 62-22-5341Xyntrk Arkr15XDJYAU SEC[facility] HEALTHP Tlfk49mmwkeubFRZ [facility]HABIL[facility]ATIONY HEALTHP-R Ellwefpr377 msTUBA CITY REGIONAL [facility]ALTH CARE CORPORATION [facility] HEALTHQ-T Iwtczoib124 msTUBA CITY REGIONAL [facility]ALTH [facility]ARE CORPORATION [facility] REHABIL[facility]ATIONY HEALTHQRS Rkflojei96 msTUBA CITY REG[facility]PORATION [facility] REHABIL[facility]ATIONY HEALTHQTc Calculation (Bazett)449 msTUBA CITY REGIONAL [facility]ALTH CARE CORPORATION [facility] FOR REHABIL[facility]ATIONY HEALTHR Akki60rpfumnjKAA [facility]HABIL[facility]Y HEALTHT Ojce17twuartaICZ [facility] HEALTHVentricular Lxar24QFHPKL [facility] REHABIL[facility]ATIONY HEALTHNormal sinus rhythm Normal ECG When compared with ECG of 06-AUG-2022 17:11, No significant change was found Confirmed by Nathan Ardon MD ([id number]) on 06/11/2023 4:31:21 PMCO[facility] Nathan Ardon MD - 06/11/2023 Normal sinus rhythm Normal ECG When compared with ECG of 06-AUG-2022 17:11, No significant change was found Confirmed by Nathan Ardon MD ([id number]) on 06/11/2023 4:31:21 PM [facility] HEALTHEKG Rhythm Stripon 06-11-2023 [facility] LABUC [facility] LABCARILION CLINICGlucose, Whole Bloodon 98-15-4412Yarubfa [Mass/Vol]407 mg/hYWjwl25 - 100 mg/dLBON PAULDING COUNTY HOSPITALInterpretation and review of laboratory resultsAbnormHenrico Doctors' Hospital—Henrico CampusGlucose [Mass/Vol]473 mg/qATfkf59 - 100 mg/dLBON [facility] Interpretation and review of laboratory resultsAbnormMary Washington HospitalGlucose [Mass/Vol]336 mg/sNCvqz47 - 100 mg/dLBON [facility] COUNTY HOSPITALInterpretation and review of laboratory resultsAbnormHenrico Doctors' Hospital—Henrico CampusGlucose [Mass/Vol]168 mg/xEGxwk12 - 100 mg/dLBON [facility]UL[facility] COUNTY HOSPITALInterpretation and review of laboratory results AbnormalRUSSELL COUNTY MEDICAL CENTERLactate, Sepsison 16-86-0459Ymkwoet (BldV) [Moles/Vol]1.7 mmol/L0.5 - 1.9 mmol/LBON ST. MARY'S HEALTHCARE CENTERLactate (BldV) [Moles/Vol]1.7 mmol/L0.5 - 1.9 mmol/LBON [address] [facility]ALTHCARE CENTERProcalcitoninon 06-11-2023 Procalcitonin [Mass/Vol]0.07 ng/mLNINF - 0.09 ng/mLCARILION CLINIC Comment on above: Suspected Sepsis: <0.50 ng/mL [...] entered into the Change in Procalcitonin Calculator ([email or web address]) to determine the patient's Mortality Risk Prognosis In healthy neonates, plasma Procalcitonin (PCT) concentrations increase gradually after , reaching peak values at about 24 hours of age then decrease to normal values below 0.5 ng/mL by 48-72 hours of age. [facility]INICTroponinon [id number] and review of laboratory resultsAbnormalBON PAULDING COUNTY HOSPITALTroponin I.cardiac High sensitivity method [Mass/Vol]26 ng/LHigh0 - 14 ng/LBON [facility] Comment on above:High Sensitivity Troponin values cannot be compared with other Troponin methodologies.[facility] with Auto Differentialon [id number] (Bld) [#/Vol]0.07 10*3/uLBON [facility] Basophils/100 WBC (Bld)1 %0 - 2 %[facility] CLINICEosinophils (Bld) [#/Vol]0.40 10*3/uLBON [facility] COUNTY HOSPITALEosinophils/100 WBC (Bld)5 %High1 - 4 %[facility] CLINICErythrocyte distribution width (RBC) [Ratio]14.0 %11.8 - 14.4 %[facility] CLINICHematocrit (Bld) [Volume fraction]41.8 %36.3 - 47.1 %[facility]ICHemoglobin (Bld) [Mass/Vol]13.3 g/dL11.9 - 15.1 g/dLBON PAULDING COUNTY HOSPITALImmature granulocytes (Bld) [#/Vol]0.16 10*3/uLBON [facility] granulocytes/100 WBC (Bld)2 %Okpg6JJN [facility]OSPITALInterpretation and review of laboratory resultsAbnormalBON PAULDING COUNTY HOSPITALLymphocytes/100 WBC (Bld)34 %24 - 43 %[facility] Lymphocytes/100 WBC (Bld)2.92 %[facility]ENTERH (RBC) [Entitic mass] 31.4 pg25.2 - 33.5 pgCJW MEDICAL CENTERHC (RBC) [Mass/Vol]31.8 g/dL28.4 - 34.8 [...] [Entitic vol]9.1 fL8.1 - 13.5 fLBON SECOURS CHILDREN'S [facility] FOR REHABILITATIONY HEALTHPlatelets (Bld) [#/Vol]370 10*3/uLBON [facility] FOR REHABILITATIONY HEALTHRBC (Bld) [#/Vol]4.24 10*6/uL3.95 - 5.11 m/uLBON [facility]OU[facility]DR[facility] FOR REHABILITATIONY HEALTHSegmented neutrophils/100 WBC (Bld)4.33 %[facility] HEALTHWBC other (Bld) [#/Vol]8.6B[facility] FOR REHABILITATIONY HEALTHB[facility]Y [facility]ALTH CMPon [id number] [Mass/Vol]4.7 g/dL3.5 - 5.2 g/dLBON [facility]OURS [facility]ATIONY [facility]ALTH Albumin/Globulin [Mass ratio]1.6 {ratio}1.0 - 2.5BON [...] MER[facility] HEALTHChloride [Moles/Vol]98 mmol/L98 - 107 mmol/LBON [facility] HOSPITALCO2 [Moles/Vol]31 mmol/L20 - 31 mmol/LBON [facility] Creatinine [Mass/Vol]1.1 mg/dLHigh0.5 - 0.9 mg/dLBON [facility] GFR/1.73 sq M.predicted MDRD (S/P/Bld) [Vol rate/Area]- PINFBON PAULDING COUNTY HOSPITALComment on above: These results are not intended [...] that affects renal tubular secretion. Glucose [Mass/Vol]109 mg/sEFosp41 - 99 mg/dLBON [facility] Interpretation and review of laboratory resultsAbnormalCARILION CLINIC Potassium [Moles/Vol]4.2 mmol/L3.7 - 5.3 mmol/LBON [facility]OSPITALProtein [Mass/Vol]7.7 g/dL6.4 - 8.3 g/dLBON PAULDING COUNTY HOSPITALSodium [Moles/Vol]139 mmol/L135 - 144 mmol/LBON [facility] HOSPITALUrea nitrogen [Mass/Vol]15 mg/dL6 - 20 mg/dLBON PAULDING COUNTY HOSPITALUrea nitrogen/Creatinine [Mass ratio]14 mg/mg9 - 20BON [facility] HOSPITALCOVID-19, Rapidon 80-27-5800AHDF-CoV-2 (COVID-19) RdRp gene ASHLEY+probe Ql (Resp)Not detectedNot [facility] Comment on above: Rapid NAAT: The specimen [...] management decisions. Fact sheet for Healthcare Providers: https://www.fda.gov/media/884983/download Fact sheet for Patients: https://www.fda.gov/media/432464/download Methodology: Isothermal Nucleic Acid Amplification Specimen Description.NASOPHARYNGEAL SWABBON [facility] CERVICAL SPINE WO CONTRASTon . No acute traumatic abnormality involving the cervical spine. [facility] CONSOLIDATEDEXAMINATION: CT OF THE CERVICAL SPINE WITHOUT [...] There is no prevertebral soft tissue swelling. [facility] Niles Blanco MD - 06/10/2023 EXAMINATION: CT [...] acute traumatic abnormality involving the cervical spine. [facility] observation (narrative)[facility]CT CERVICAL SPINE WO CONTRASTOrdered By: Niles Barbosa on [id number] Work Phone: ct CHEST PULMONARY EMBOLISM W CONTRASTon 06-10-2023 Mild nonspecific bibasilar interstitial infiltrates. Coronary artery disease. [facility] CONSOLIDATEDEXAMINATION: CTA OF THE CHEST 06/10/2023 10:33 [...] No acute bone or soft tissue abnormality. [facility] Zak Dennis MD - 06/10/2023 EXAMINATION: CTA [...] nonspecific bibasilar interstitial infiltrates. Coronary artery disease. [facility] Study observation (narrative)[facility] Head WO Contraston 31-46-5127Bw acute intracranial abnormality. [facility] CONSOLIDATEDEXAMINATION: CT OF THE HEAD WITHOUT CONTRAST [...] of the visualized skull or soft tissues. [facility] Zak Dennis MD - 06/10/2023 EXAMINATION: CT [...] soft tissues. IMPRESSION: No acute intracranial abnormality. [facility] StoreFlixUNIVERSITY HOSPITALS ELYRIA MEDICAL CENTERRadiology Study observation (narrative)[facility] Umami WHITE HOSPITALCT Head WO ContrastOrdered By: Zak Duque on 39-50-3766ODD HONORHEALTH REHABILITATION HOSPITALEversnap [employer] Work Phone: Magnesiumon 28-62-4024Mdwfxpjxm [Mass/Vol]2.0 mg/dL1.6 - 2.6 mg/dLBON HONORHEALTH REHABILITATION HOSPITALEversnapUNIVERSITY HOSPITALS ELYRIA MEDICAL CENTERNo Panel Informationon [id number] HONORHEALTH REHABILITATION HOSPITALEducational Services Institute C[facility] HOSPITALTroponinon 96-51-9703Fgtfrsmcxwndln and review of laboratory resultsAbnormalBON Magruder Hospitaloponin I.cardiac High sensitivity method [Mass/Vol]27 ng/LHigh0 - 14 ng/LBON PAULDING COUNTY HOSPITALComment on above: High Sensitivity Troponin values cannot be compared with other Troponin methodologies.HILLCREST HOSPITALKona Group WHITE HOSPITALXR CHEST (2 VW)on 91-42-2612Ls acute process. [facility] CONSOLIDATEDEXAMINATION: TWO XRAY VIEWS OF THE CHEST 06/10/2023 9:33 pm COMPARISON: None. HISTORY: ORDERING SYSTEM PROVIDED HISTORY: Cough x1wk TECHNOLOGIST PROVIDED HISTORY: Cough x1wk FINDINGS: The lungs are without acute focal process. There is no effusion or pneumothorax. The cardiomediastinal silhouette is without acute process. The osseous structures are without acute process. [facility] Zak Dennis MD - 06/10/2023 EXAMINATION: TWO XRAY VIEWS OF THE CHEST 06/10/2023 9:33 pm COMPARISON: None. HISTORY: ORDERING SYSTEM PROVIDED HISTORY: Cough x1wk TECHNOLOGIST PROVIDED HISTORY: Cough x1wk FINDINGS: The lungs are without acute focal process. There is no effusion or pneumothorax. The cardiomediastinal silhouette is without acute process. The osseous structures are without acute process. IMPRESSION: No acute process. [facility]ERRad[facility] Study observation (narrative)[facility] GLUCOSEon 75-68-3085Ymwsyps [Mass/Vol]136 mg/dLCritically ovgv76-413VvuPremier Health Miami Valley HospitalComment on above: Performed By: #### POCGLUC #### [facility] [address] [address] [address] [facility]illo [facility] GLUCOSEon 58-54-6663Pgdvkji [Mass/Vol]129 mg/dL Critically rqla09-274QkfPremier Health Miami Valley HospitalComment on above:Performed By: #### POCGLUC #### [facility] [address] [address] [address] [facility] THORACIC SPINE WO CONTRASTon 19-98-2738Ay acute abnormality in the thoracic spine. No significant spinal canal or neural foraminal narrowing. [facility] CONSOLIDATEDEXAMINATION: MRI OF THE THORACIC SPINE WITHOUT [...] neural foraminal narrowing of the thoracic spine. [facility] Shabbir Kc DO - 12/28/2022 EXAMINATION: MRI [...] significant spinal canal or neural foraminal narrowing. [employer] Work Phone: radiology Study observation (narrative)[facility] Phone: MRI THORACIC SPINE WO CONTRASTOrdered By: Shabbir Weaver on 02-60-1621OZV [employer] Phone: Colonoscopy studyon 92-91-1759Kj dictationTUBA CITY REGIONAL HEALTH CARE CORPORATION [employer] Phone: colonoscopy studyOrdered By: Roberto Epic on 12-08-2022 [facility] [employer] Phone: Glucose, Whole Bloodon 92-91-5840Gfkecza [Mass/Vol]117 mg/rYKoix64 - 100 mg/dLBON ZalandoInterpretation and review of laboratory resultsAbnormalTUBA CITY REGIONAL HEALTH CARE CORPORATION ZalandoTUBA CITY REGIONAL HEALTH CARE CORPORATION ZalandoXR TSPINE 2 VIEWSon 83-93-2048LU TSPINE 2 VIEWSEXAMINATION: XR TSPINE 2 VIEWS, [...] Electronically authenticated by: PHILLIP CAMACHO Date: 2022-12-01 09:[address] [place] [address] LUMBAR SPINE WO CONTRASTon 94-85-6653Kewp degenerative change without canal stenosis or foraminal narrowing. RECOMMENDATIONS: Unavailable [facility] CONSOLIDATEDEXAMINATION: MRI OF THE LUMBAR SPINE WITHOUT [...] is no canal stenosis or foraminal narrowing. [facility] Vern Parks MD - 11/17/2022 EXAMINATION: MRI [...] canal stenosis or foraminal narrowing. RECOMMENDATIONS: Unavailable [facility] Phone: radiology Study observation (narrative)[facility] Phone: MRI LUMBAR SPINE WO CONTRASTOrdered By: Vern Olivo on 02-40-4310GFB [employer] Phone: basic Metabolic Panelon 31-73-1657Jcbdj gap [Moles/Vol]14.5 mmol/LNormal6.0-15.0Promedica Memorial HospitalComment on above:Performed By: #### DIFF CBC, BMP #### [facility] [address] [place] [address] USACalcium [Mass/Vol]9.2 mg/dLNormal8.2-10.2FClinton Memorial HospitalComment on above:Performed By: #### DIFF CBC, BMP #### [facility] [address] [id number] USAChloride [Moles/Vol]101 mmol/MGudcbx48-481UrjgbeimhPromedica Memorial HospitalComment on above:Performed By: #### DIFF CBC, BMP #### [facility] [address] [place] [address] USACO2 [Moles/Vol]24.0 mmol/IPjqyxg93.0-30.0Promedica Memorial HospitalComment on above:Performed By: #### DIFF CBC, BMP #### [facility] [address] [id number] USACreatinine [Mass/Vol]1.02 mg/dLNormal0.44-1.03Promedica Memorial HospitalComment on above:Performed By: #### DIFF CBC, BMP #### [facility] [address] [place] [address] USACreatinine Clr Calc Xrhvmwch32.76NoUpper Valley Medical CenterComment on above:Result Comment: PERFORMED BY: [facility] [address] [place] [address] PATHOLOGIST DRUM WORKER GRZEGORZ DUMONT M.D.Performed By: #### DIFF CBC, BMP #### [facility] [address] [place] [address] USAEstimated GFR ( Mai> 60Wyandot Memorial HospitalComment on above:Result Comment: GFR estimated reference range: According to KDOQI guidelines, <60 ml/min/1.73m2 is sufficient to diagnose a patient with chronic kidney disease.Performed By: #### DIFF CBC, BMP #### [facility] [address] [place] [address] USAEstimated GFR (Non- Nx24FmmjmuRivsiwydvWyandot Memorial HospitalComment on above:Performed By: #### DIFF CBC, BMP #### [place] [address] USAGlucose [Mass/Vol]223 mg/oKAgbt20-850YgtidpiglPromedica Memorial HospitalComment on above:Result Comment: Random Glucose Reference Range is dependent on time and content of last meal. Glucose of more than 200 mg/dL in a nonstressed, ambulatory subject supports the diagnosis of Diabetes Mellitus. ADA recommended reference rangePerformed By: #### DIFF CBC, BMP #### [facility] [address] [place] [address] USAPotassium [Moles/Vol]4.5 mmol/LNormal3.5-5.1FClinton Memorial HospitalComment on above:Performed By: #### DIFF CBC, BMP #### [facility] [address] [place] [address] USASodium [Moles/Vol]135 mmol/TQct804-947FiaunqnclPromedica Memorial HospitalComment on above:Performed By: #### DIFF CBC, BMP #### [facility] [address] [place] [address] USAUrea nitrogen [Mass/Vol]29 mg/dLPratt Clinic / New England Center Hospital[address] [place], [place] [address]Comment on above:Performed By: #### DIFF CBC, BMP #### [facility] [address] [place] [address] USAGlucose Poct Glucometerson 83-10-4356Pluvokl [Mass/Vol]239 mg/dLNoUpper Valley Medical CenterComment on above:Result Comment: Random Glucose Reference Range is dependent on time and content of last meal. Glucose of more than 200 mg/dL in a nonstressed, ambulatory subject supports the diagnosis of Diabetes Mellitus. PERFORMED BY: [facility] [address] [place] [address] PATHOLOGIST DRUM WORKER GRZEGORZ DUMONT M.D.Performed By: #### GLULS #### Point of Care testing ,Glucose [Mass/Vol]234 mg/dLWyandot Memorial HospitalComment on above:Result Comment: Random Glucose Reference Range is dependent on time and content of last meal. Glucose of more than 200 mg/dL in a nonstressed, ambulatory subject supports the diagnosis of Diabetes Mellitus. PERFORMED BY: [place] [address] PATHOLOGIST DRUM WORKER GRZEGORZ DUMONT M.D.Performed By: #### GLULS #### Point of Care testing ,COVID-19 Antigenon 86-68-1717VOAPF-19 AntigenHealthcare Worker?: N Reference Range: Negative Negative [...] determined by [employer] and validated at [facility]. This test has not been FDA [...] for SARS Antigen by RY PERFORMED BY: [place] [address] PATHOLOGIST DRUM WORKER GRZEGORZ DUMONT M.D.Wyandot Memorial HospitalComment on above: Performed By: #### COVID-19 TAB, SOFIANEG #### [place] [address] USACOVID-19 SOFIAOrdered By: Shiraz Sherman on 09-30-2022 SARS-CoV+SARS-CoV-2 (COVID-19) Ag IA.rapid Ql (Resp)NegativeNegChildren's Hospital of ColumbusComment on above:This is a duplicate Tab SARS Antigen (RY) result to be used for statistical tracking purpose only.No Panel InformationOrdered By: Shiraz Sherman on 09-84-5065TINO Antigen (LFIA)Clermont County Hospitalofia Ag Negativeon 85-46-1079Pkqfr Ag NegativeNegative NormalNegChildren's Hospital of ColumbusComment on above:Result Comment: This is a duplicate Tab SARS Antigen (RY) result to be used for statistical tracking purpose only. PERFORMED BY: [place] [address] PATHOLOGIST DRUM WORKER GRZEGORZ DUMONT M.D.Performed By: #### COVID-19 JUS BARTH #### [facility] [address] [place] [address] USATilt Table Teston 38-61-7664Jjsipg Bruhl, MD - 09/29/2022 11:59 PM EST [address] [address] TILT TABLE TEST PATIENT NAME: VIRGIL WARNER : 1975 MED REC NO: [id number] ROOM: ACCOUNT NO: [id number] ADMIT DATE: 09/29/2022 PROVIDER: Sharon Vargas MD [...] up with their primary care physician and/or supervisor [employer] as previously scheduled. STUDY CONCLUSIONS: Abnormal head [...] MD YURY/JULIUS_KIARA Doc#: Unknown CC: Vivian Lemos, WILDLIFE BIOLOGY TECHNICIAN-[facility] [employer] Work Phone: Tilt Table TestOrdered By: Sharon Vargas on 09-29-2022 [facility] [employer] Work Phone: LDL Cholesterol, Directon 79-24-1353Dushmtbfukz in LDL [Mass/Vol]48 mg/dLNINF - 100 mg/dLBON HONORHEALTH REHABILITATION HOSPITALAloricaHILLCREST HOSPITALKona Group [facility] 71-59-9132XWL [Catalytic activity/Vol]U/LLow5 - 33 U/LBON HONORHEALTH REHABILITATION HOSPITALKona Group WHITE HOSPITALInterpretation and review of laboratory resultsAbnormalBON HONORHEALTH REHABILITATION HOSPITALKona Group WHITE HOSPITALASTon 12-14-4248YBH [Catalytic activity/Vol]U/LNINF - 32 U/LBON HONORHEALTH REHABILITATION HOSPITALKona Group WHITE HOSPITALBand form neutrophils/100 WBC Manual cnt (Bld)Ordered By: Shiraz Sherman on 15-91-3210Wdcl form neutrophils/100 WBC (Bld)4 %0-5FClinton Memorial HospitalBasic Metabolic Panelon 48-51-9062Tavsq gap [Moles/Vol] 14.4 mmol/LNormal6.0-15.0Promedica Memorial HospitalComment on above: Performed By: #### DIFF CBC, BMP #### [place] [address] USACalcium [Mass/Vol]10.0 mg/dLNormal8.2-10.2FClinton Memorial HospitalComment on above:Result Comment: PERFORMED BY: [place] [address] PATHOLOGIST DRUM WORKER GRZEGORZ DUMONT M.D.Performed By: #### DIFF CBC, BMP #### [facility] [address] [place] [address] USAChloride [Moles/Vol]99 mmol/QYwtfee37-694JtuuwgcyuPromedica Memorial HospitalComment on above:Performed By: #### DIFF CBC, BMP #### [place] [address] USACO2 [Moles/Vol]23.5 mmol/RIgybij95.0-30.0Promedica Memorial HospitalComment on above:Performed By: #### DIFF CBC, BMP #### [place] [address] USACreatinine [Mass/Vol]0.91 mg/dLNormal0.44-1.03Promedica Memorial HospitalComment on above:Performed By: #### DIFF CBC, BMP #### [place] [address] USAEstimated GFR ( Mai> 60NormOhioHealth Grove City Methodist HospitalComment on above:Result Comment: GFR estimated reference range: According to KDOQI guidelines, <60 ml/min/1.73m2 is sufficient to diagnose a patient with chronic kidney disease.Performed By: #### DIFF CBC, BMP #### [place] [address] USAEstimated GFR (Non- Am> 60NormOhioHealth Grove City Methodist HospitalComment on above:Performed By: #### DIFF CBC, BMP #### [place] [address] USAGlucose [Mass/Vol]270 mg/tNKrwl43-734PtalpggsuPromedica Memorial HospitalComment on above:Result Comment: Random Glucose Reference Range is dependent on time and content of last meal. Glucose of more than 200 mg/dL in a nonstressed, ambulatory subject supports the diagnosis of Diabetes Mellitus. ADA recommended reference rangePerformed By: #### DIFF CBC, BMP #### [facility] [address] [place] [address] USAPotassium [Moles/Vol]4.9 mmol/LNormal3.5-5.1FClinton Memorial HospitalComment on above:Performed By: #### DIFF CBC, BMP #### [facility] [address] [place] [address] USASodium [Moles/Vol]132 mmol/RPzc271-505OhjofwzglPromedica Memorial HospitalComment on above:Performed By: #### DIFF CBC, BMP #### [facility] [address] [place] [address] USAUrea nitrogen [Mass/Vol]20 mg/dLNormal9-23Promedica Memorial HospitalComment on above:Performed By: #### DIFF CBC, BMP #### [facility] [address] [place] [address] USAAnion gap [Moles/Vol]15 mmol/L9 - 17 mmol/LBON SECKona Group HEALTHCalcium [Mass/Vol]10.2 mg/dL8.6 - 10.4 mg/dLBON SECAlorica Chloride [Moles/Vol]98 mmol/L98 - 107 mmol/LBON SECKona Group HEALTHCO2 [Moles/Vol]22 mmol/L20 - 31 mmol/LBON SECAloricaCreatinine [Mass/Vol] 0.85 mg/dL0.50 - 0.90 mg/dLBON SECKona Group HEALTHGFR/1.73 sq M.predicted MDRD (S/P/Bld) [Vol rate/Area]- PINFBON HONORHEALTH REHABILITATION HOSPITALKona Group WHITE HOSPITALComment on above: Effective Jun 28, 2022 [...] that affects renal tubular secretion. Glucose [Mass/Vol]271 mg/pTLiwm61 - 99 mg/dLBON [facility] Interpretation and review of laboratory resultsAbnormalBON SECOURS CHILDREN'S HOS[facility]ITAL FOR REHABILITATIONY HEALTH Potassium [Moles/Vol]4.8 mmol/L3.7 - 5.3 mmol/LBON SECOURS MERCY HEALTHSodium [Moles/Vol]135 mmol/L135 - 144 mmol/LBON SECOURS MERCY HEALTHUrea nitrogen (BldV) [Mass/Vol]22 mg/dLHigh6 - 20 mg/dLBON SECOURS CHILDREN'S HOSPITAL FOR REHABILITATIONY HEALTHUrea nitrogen/Creatinine (Bld) [Mass ratio]74Wpon5 - 20B[facility]OU[facility] HOS[facility] FOR REHABILITATIONY HEALTHBON SECOU[facility]IL[facility]EN'[facility] HOS[facility]ITAL FOR REHABILITATIONY HEALTHBasophils Auto (Bld) [#/Vol]Ordered By: Shiraz Sherman on 53-74-0092Qymvabaxp (Bld) [#/Vol]N/[facility] Basophils/100 WBC Auto (Bld)Ordered By: Shiraz Sherman on 38-98-2031Fjmvrrkid/100 WBC (Bld)N/[facility] CenterBasophils/100 WBC Manual cnt (Bld) Ordered By: Shiraz Sherman on 58-46-4869Xwhswjtlg/100 WBC (Bld)1 %0-[address] [place], [place] [address]CBC with Auto Differentialon 45-33-3032Qsawvoed Eos #0.57 HighBON SECOURS CHILDREN'S HOSPITAL FOR REHABILITATIONY WHITE HOSPITALAbsolute Immature Granulocyte0.19B[facility] MERCY HEALTHAbsolute Lymph #3.29B[facility] HEALTHAbsolute Heard #0.66B[facility]ILDREN'S HOSPITAL FOR REHABILITATIONY WHITE HOSPITALBasophils (Bld) [#/Vol]0.11 10*3/uLBON SECOURS CHILDREN'S HOSPITAL FOR REHABILITATIONY HEALTH Basophils/100 WBC (Bld)1 %0 - 2 %[facility] WHITE HOSPITALEosinophils/100 WBC (Bld)6 %High1 - 4 %[facility] FOR REHABILITATIONY HEALTHHematocrit (Bld) [Volume fraction] 43.2 %36.3 - 47.1 %[facility] FOR REHABILITATIONY HEALTHHemoglobin (Bld) [Mass/Vol]13.9 g/dL 11.9 - 15.1 g/dLBON SECOURS CHILDREN'S HOSPITAL FOR REHABILITATIONY WHITE HOSPITALImmature granulocytes/100 WBC (Bld)2 % Sahs5IOA SECOURS CHILDREN'S HOS[facility]ITAL FOR REHABILITATIONY HEALTHInterpretation and review of laboratory results AbnormalBON SECOURS CHILDREN'S HOSPITAL FOR REHABILITATIONY WHITE HOSPITALLymphocytes/100 WBC (Bld)35 %24 - 43 %BON [facility]IAL HOSPITALH (RBC) [Entitic mass]32.3 pg25.2 - 33.5 pgBON SECUPPER VALLEY MEDICAL CENTERHC (RBC) [Mass/Vol]32.2 g/dL28.4 - 34.8 g/dLBON SECUPPER VALLEY MEDICAL CENTERV (RBC) [Entitic vol]100.5 fL82.6 - 102.9 fLBON [facility]ULDING COUNTY [facility]OS[facility] Monocytes/100 WBC (Bld)7 %3 - 12 %BON [facility] HEALTHNRBC Automated0.00.0 per 100 WBCBON SECOUR L[facility]ENSION HEALTHPlatelet distribution width (Bld) [Ratio]13.2 %11.8 - 14.4 %BON [facility] HEALTHPlatelet mean volume (Bld) [Entitic vol] 9.1 fL8.1 - 13.5 fLBON SECOUR LADY OF THE LAKE ASCENSION HEALTHPlatelets (Bld) [#/Vol]393 10*3/uLBON SECOUR LADY OF THE [facility] ASCENSION HEALTHRBC (Bld) [#/Vol]4.30 10*6/uL3.95 - 5.11 m/uLBON PAULDING COUNTY HOSPITALSegmented neutrophils/100 WBC (Bld)49 %36 - 65 %BON PAULDING COUNTY HOSPITALSegs Absolute4.59BON [facility] ASCENSION HEALTHWBC (Bld) [#/Vol]9.4 10*3/uLBON SECPROMEDICA FLOWER [facility]ITAL SECPEACEHEALTHY HEALTHCreatinine and Glomerular filtration rate.predicted panel (S/P/Bld)Ordered By: Shiraz Sherman on 41-58-8801Gilsundvvg [Mass/Vol]0.91 mg/dL0.44-1.03Promedica Memorial HospitalDiff and CBCon 92-70-7102Zvwf form neutrophils/100 WBC (Bld)4 %Normal0-5FClinton Memorial HospitalComment on above:Performed By: #### DIFF CBC, BMP #### [facility] [address] [place] [address] USABasophils/100 WBC (Bld)1 %Normal0-2FClinton Memorial HospitalComment on above:Performed By: #### DIFF CBC, BMP #### [facility] [address] [place] [address] USAEosinophils/100 WBC (Bld)7 %High1-3FClinton Memorial HospitalComment on above:Performed By: #### DIFF CBC, BMP #### [facility] [address] [place] [address] USAErythrocyte distribution width (RBC) [Ratio]14.2 %Normal 11.9-15.3FClinton Memorial HospitalComment on above:Performed By: #### DIFF CBC, BMP #### [facility] [address] [place] [address] USAGiant Platelet Tally2 /100{WBC}NormalPromedica Memorial HospitalComment on above:Performed By: #### DIFF CBC, BMP #### [facility] [address] [id number] USAHematocrit (Bld) [Volume fraction]38.8 %Nkvgwn00.0-46.4 Promedica Memorial HospitalComment on above:Performed By: #### DIFF CBC, BMP #### [facility] [address] [place] [address] USAHemoglobin (Bld) [Mass/Vol]12.9 g/qHGrhust91.8-15.4 [facility] Memorial HospitalComment on above:Performed By: #### DIFF CBC, BMP #### [facility] [address] [place] [address] USALymphocytes/100 WBC (Bld)15 %Gfr34-96BppggwoshPromedica Memorial HospitalComment on above:Performed By: #### DIFF CBC, BMP #### [facility] [address] [place] [address] USAMCH (RBC) [Entitic mass]31.0 qkGdwnnc53.7-34.3FClinton Memorial HospitalComment on above:Performed By: #### DIFF CBC, BMP #### [facility] [address] [place] [address] USAMCV (RBC) [Entitic vol]93.3 dWYecdwh43-925CfwrvkpnePromedica Memorial HospitalComment on above:Performed By: #### DIFF CBC, BMP #### [facility] [address] [place] [address] USAMean Corpuscular HGB Conc33.2 g/cQTfhaxm66.0-35.0Promedica Memorial HospitalComment on above:Performed By: #### DIFF CBC, BMP #### [facility] [address] [place] [address] USAMetamyelocytes2 %High0-0[facility] Comment on above:Performed By: #### DIFF CBC, BMP #### [facility] [address] [place] [address] USAMonocytes/100 WBC (Bld)9 %Normal2-11Promedica Memorial HospitalComment on above:Performed By: #### DIFF CBC, BMP #### [place] [address] USAMyelocytes1 %High0-0[facility] Comment on above:Performed By: #### DIFF CBC, BMP #### [facility] [address] [place] [address] USAPlatelet EstimateNormalNormalNoUpper Valley Medical CenterComment on above:Performed By: #### DIFF CBC, BMP #### [facility] [address] [place] [address] USAPlatelet mean volume (Bld) [Entitic vol]7.4 fLNormal 6.3-10.7FClinton Memorial HospitalComment on above:Result Comment: PERFORMED BY: [place] [address] PATHOLOGIST DRUM WORKER GRZEGORZ DUMONT M.D.Performed By: #### DIFF CBC, BMP #### [facility] [address] [place] [address] USAPlatelet MorphologyNormalNormalWyandot Memorial HospitalComment on above:Result Comment: PERFORMED BY: [address] [address] PATHOLOGIST DRUM WORKER GRZEGORZ DUMONT M.D.Performed By: #### DIFF CBC, BMP #### [facility] [address] [place] [address] USAPlatelets (Bld) [#/Vol]363 10*3/xCYvfkoa486-548YnhalvsjlPromedica Memorial HospitalComment on above:Performed By: #### DIFF CBC, BMP #### [facility] [address] [place] [address] USARBC (Bld) [#/Vol]4.16 10*6/uLNormal3.60-5.00Promedica Memorial HospitalComment on above:Performed By: #### DIFF CBC, BMP #### [facility] [address] [place] [address] USARBC morphology finding Nom (Bld)NormalNormalNormal Promedica Memorial HospitalComment on above:Performed By: #### DIFF CBC, BMP #### [facility] [address] [place] [address] USASegmented neutrophils/100 WBC (Bld)62 %Npaaod02-89 [facility] Memorial HospitalComment on above:Performed By: #### DIFF CBC, BMP #### [facility] [address] [place] [address] USAWBC (Bld) [#/Vol]8.4 10*3/uLNormal3.8-11.6FClinton Memorial HospitalComment on above:Performed By: #### DIFF CBC, BMP #### [place] [address] USAECG 12 lead ECGon 12-71-2047MDQ 12 lead ECGSAMARITAN HOSPITAL Main Nikolai [address] [place] [address] Electrocardiograph Report Signed Patient: Virgil Warner MR#: [id number] 52 : 1975 Acct:[id number] Age/Sex: 47 / F ADM Date: 09/21/22 Loc: PS Room: Type: [facility] Attending Dr: Shiraz Sherman MD [...] Signed By John Sanchez MD 1 11/22/21 1710NormalPromedica Memorial HospitalEosinophils Auto (Bld) [#/Vol]Ordered By: Shiraz Sherman on 11-11-3077Cbaubhqcqfu (Bld) [#/Vol]N/[facility] CenterEosinophils/100 WBC Auto (Bld)Ordered By: Shiraz Sherman on 88-13-9039Lxklycgvozw/100 WBC (Bld)N/[facility] Eosinophils/100 WBC Manual cnt (Bld)Ordered By: Shiraz Sherman on 09-21-2022 Eosinophils/100 WBC (Bld)7 %1-3FClinton Memorial HospitalErythrocyte distribution width Auto (RBC) [Ratio]Ordered By: Shiraz Sherman on 09-21-2022 Erythrocyte distribution width (RBC) [Ratio]14.2 %11.9-15.3FClinton Memorial HospitalEstimated glomerular filtration rate (GFR) non- Ordered By: Shiraz Sherman on 15-69-3382BFC/1.73 sq M.predicted among non-blacks MDRD (S/P/Bld) [Vol rate/Area]> 60 mL/MinPromedica Memorial HospitalGiant platelets/100 leukocytes [Ratio] in Blood by Manual countOrdered By: Shiraz Sherman on 50-52-8875Yutwh platelets/100 WBC Manual cnt (Bld) [Ratio]2 /100{WBC} Promedica Memorial HospitalHematocrit Auto (Bld) [Volume fraction]Ordered By: Shiraz Sherman on 87-41-7304Kvjgwtqlta (Bld) [Volume fraction]38.8 %34.0-46.4 Promedica Memorial HospitalHemoglobin [Mass/volume] in BloodOrdered By: Shiraz Sherman on 75-58-7170Quybtkmvpb (Bld) [Mass/Vol]12.9 g/dL11.8-15.4FClinton Memorial HospitalLeukocytes [#/volume] corrected for nucleated erythrocytes in Blood by Automated counOrdered By: Shiraz Sherman on 91-41-5202NTE corrected for nucl RBC Auto (Bld) [#/Vol]8.4 10*3/uL3.8-11.6FClinton Memorial HospitalLipid Panelon 48-52-8437Srqrndizlcz [Mass/Vol]215 mg/dLHighNINF - 200 mg/dLBON ZalandoComment on above: Cholesterol Guidelines: <200 Desirable 200-240 Borderline >240 Undesirable Cholesterol in HDL [Mass/Vol]21 mg/dLLow40 - PINF mg/dLBON Zalando Comment on above: HDL Guidelines: <40 Undesirable 40-59 Borderline >59 Desirable Cholesterol.total/Cholesterol in HDL [Mass ratio]10.2 {ratio}HighNINF - 5BON ZalandoInterpretation and review of laboratory resultsAbnormalBON ZalandoLDL Cholesterol0 - 130 mg/dLBON ZalandoComment on above:Calculation not valid for Triglyceride value greater than 400 mg/dL. Direct LDL reflexed LDL Guidelines: <100 Desirable 100-129 Near to/above Desirable 130-159 Borderline >159 Undesirable Direct (measured) LDL and calculated LDL are not interchangeable tests. Triglyceride [Mass/Vol]1567 mg/dLHighNINF - 150 mg/dLBON Zalando Comment on above: Triglyceride Guidelines: <150 Desirable 150-199 Borderline 200-499 High >499 Very high Based on AHA Guidelines for fasting triglyceride, June 2012. KEAGAN ZalandoLymphocytes Auto (Bld) [#/Vol]Ordered By: Shiraz Sherman on 67-54-3144Mwjyxdfmxzd (Bld) [#/Vol]N/[facility] Lymphocytes/100 WBC Auto (Bld)Ordered By: Shiraz Sherman on 09-21-2022 Lymphocytes/100 WBC (Bld)N/[facility] CenterLymphocytes/100 WBC Manual cnt (Bld)Ordered By: Shiraz Sherman on 12-59-6399Neasfejbzpz/100 WBC (Bld)15 %18-42[facility] CenterH Auto (RBC) [Entitic mass]Ordered By: Shiraz Sherman on 11-44-3572AUD (RBC) [Entitic mass]31.0 pg24.7-34.3FClinton Memorial HospitalMCHC Auto (RBC) [Mass/Vol]Ordered By: Shiraz Sherman on 78-12-7549LFVJ (RBC) [Mass/Vol]33.2 g/dL32.0-35.0Promedica Memorial HospitalMCV Auto (RBC) [Entitic vol]Ordered By: Shiraz Sherman on 45-33-5900RZM (RBC) [Entitic vol]93.3 kW72-159BadlydhwzPromedica Memorial HospitalMetamyelocytes/100 WBC Manual cnt (Bld)Ordered By: Shiraz Sherman on 42-63-6377Guwiywfanhkwqy/100 WBC (Bld)2 %0-0Promedica Memorial HospitalMicroalbumin, Uron 09-21-2022 Albumin/Creatinine DL <= 20 mg/L (24H U) [Mass ratio]mg/LNINF - 21 mg/LBON [facility] COUNTY HOSPITALAlbumin/Creatinine DL <= 20 mg/L (U) [Ratio]Can not be calculatedNICARILION TAZEWELL COMMUNITY HOSPITALCreatinine [Mass/Vol]80.3 mg/dL28.0 - 217.0 mg/dLBON MOUNTRAIL [facility] HEALTHMonocytes Auto (Bld) [#/Vol]Ordered By: Shiraz Sherman on 71-81-4082Pqtvtrphn (Bld) [#/Vol]N/[facility] CenterMonocytes/100 WBC Auto (Bld)Ordered By: Shiraz Sherman on 18-65-0396Zqiceentg/100 WBC (Bld)N/[facility] Monocytes/100 WBC Manual cnt (Bld)Ordered By: Shiraz Sherman on 09-21-2022 Monocytes/100 WBC (Bld)9 %2-11Promedica Memorial HospitalMyelocytes/100 WBC Manual cnt (Bld)Ordered By: Shiraz Sherman on 47-83-4721Ytnvbntzpj/100 WBC (Bld) 1 %0-0Promedica Memorial HospitalNeutrophils Auto (Bld) [#/Vol]Ordered By: Shiraz Sherman on 44-64-8284Tgrvzwwazmn (Bld) [#/Vol]NPremier Health Miami Valley Hospital NorthNeutrophils/100 WBC Auto (Bld)Ordered By: Shiraz Sherman on 09-21-2022 Neutrophils/100 WBC (Bld)/[facility] CenterNo Panel InformationOrdered By: Shiraz Sherman on 05-56-4314Kvzkqfeda GFR ()> 60 mL/MinPromedica Memorial HospitalComment on above:GFR estimated reference range: According to KDOQI guidelines, <60 ml/min/1.73m2 is sufficient todiagnose a patient with chronic kidney disease.Pharmacy Creatinine Clearance (ChemN/[facility] CenterNo Panel Informationon 23-68-5367GVB [facility]UL[facility] COUNTY HOSPITALNucleated erythrocytes [Presence] in Blood by Automated countOrdered By: Shiraz Sherman on 37-31-0612Qliqipheo RBC Auto Ql (Bld)NPremier Health Miami Valley Hospital NorthPlatelet adequacy [Presence] in Blood by Light microscopyOrdered By: Shiraz Sherman on 49-39-5916Vwytopvmo LM Ql (Bld)[facility]orial Health SystemPlatelet mean volume Auto (Bld) [Entitic vol] Ordered By: Shiraz Sherman on 49-45-8371Uygnzkvv mean volume (Bld) [Entitic vol]7.4 fL6.3-10.7FClinton Memorial HospitalPlatelet morphology finding [Identifier] in BloodOrdered By: Shiraz Sherman on 68-53-7679Girkadix morphology finding Nom (Bld)NormalWyandot Memorial HospitalPlatelets Auto (Bld) [#/Vol]Ordered By: Shiraz Sherman on 65-52-4753Filkotdaa (Bld) [#/Vol]363 10*3/jJ387-603JwisgjytgPromedica Memorial HospitalRBC Auto (Bld) [#/Vol]Ordered By: Shiraz Sherman on 73-10-2183PNX (Bld) [#/Vol]4.16 10*6/uL3.60-5.00Promedica Memorial HospitalRBC morphologyOrdered By: Shiraz Sherman on 47-50-9330XSQ morphology finding Nom (Bld)NormalNormalPromedica Memorial Hospital Segmented neutrophils/100 WBC Manual cnt (Bld)Ordered By: Shiraz Sherman on 20-72-8052Sqiijjcfi neutrophils/100 WBC (Bld)62 %50-70Clermont County Hospitalerum or plasma anion gap determinationOrdered By: Shiraz Sherman on 92-21-2286Cxasd gap [Moles/Vol]14.4 mmol/L6.0-15.0Clermont County Hospitalerum or plasma calcium measurement (mass/volume)Ordered By: Shiraz Sherman on 66-73-1043Tukbuzz [Mass/Vol]10.0 mg/dL8.2-10.2FClinton Memorial Hospital Serum or plasma chloride measurement (moles/volume)Ordered By: Shiraz Sherman on 02-74-4339Tgqfssuw [Moles/Vol]99 mmol/C54-865FzqispkjqPromedica Memorial Hospital Serum or plasma glucose measurement (mass/volume)Ordered By: Shiraz Sherman on 82-57-2841Onsgrcr [Mass/Vol]270 mg/xL83-178EumjicwvvPromedica Memorial Hospital Comment on above:ADA recommended reference rangeRandom Glucose Reference Range is dependent on time and content of last meal. Glucose of more than 200 mg/dL in a nonstressed, ambulatory subject supports the diagnosisof Diabetes Mellitus. Serum or plasma potassium measurement (moles/volume)Ordered By: Shiraz Sherman on 52-29-1349Zznaessia [Moles/Vol]4.9 mmol/L3.5-5.1FKettering Health Greene Memorialerum or plasma sodium measurement (moles/volume)Ordered By: Shiraz Sherman on 99-69-7024Umxqvv [Moles/Vol]132 mmol/L635-908NnofpfctgPromedica Memorial Hospital Serum or plasma total carbon dioxide measurement (moles/volume)Ordered By: Shiraz Sherman on 85-43-3350ZN1 [Moles/Vol]23.5 mmol/L22.0-30.0Clermont County Hospitalerum or plasma urea nitrogen measurement (mass/volume)Ordered By: Shiraz Sherman on 55-80-3868Pxzo nitrogen [Mass/Vol]20 mg/dL9-23Promedica Memorial HospitalWBC Auto (Bld) [#/Vol]Ordered By: Shiraz Sherman on 66-98-6829LYD (Bld) [#/Vol]8.4 10*3/uL3.8-11.6FClinton Memorial HospitalPOINT OF CARE GLUCOSEon 62-03-9918Hmehvyr [Mass/Vol]151 mg/dLCritically razn15-933TquPremier Health Miami Valley HospitalComment on above:Performed By: #### POCGLUC #### [facility] [address] [place], [place] [address] Dr[address] Murillo [facility] GLUCOSEon 56-96-8837Qkctqxf [Mass/Vol]184 mg/dL Critically bizb04-075DwcPremier Health Miami Valley HospitalComment on above:Performed By: #### POCGLUC ####[facility] [address] [place], [place] [address]Ea. Chidi [facility] GLUCOSEon 56-98-5839Ctaefim [Mass/Vol]95 mg/dL Qeqazx67-902TswPremier Health Miami Valley HospitalComment on above:Performed By: #### POCGLUC ####[facility] [address] [place], [place] [address]Oh. Chidi [facility] Metabolic Panelon 55-22-6156Lpilr gap [Moles/Vol]18 mmol/LHigh9 - 17 mmol/LBON HON[facility] REHABILITATION HOSPITALAloricaCalcium [Mass/Vol]9.6 mg/dL8.6 - 10.4 mg/dL [facility] Mass [employer] HEALTHChloride [Moles/Vol]98 mmol/L98 - 107 mmol/LBON HONOR[facility]ALTH REHABILITATION HOSPITALAloricaCO2 [Moles/Vol]22 mmol/L20 - 31 mmol/LBON [facility]REMONT HOSPITALThinkorswim Group Creatinine [Mass/Vol]0.91 mg/dLHigh0.50 - 0.90 mg/dLBON [facility] [address] GFR/1.73 sq M.predicted MDRD (S/P/Bld) [Vol rate/Area]- PINFBON FREMONT HOSPITALcWyze WHITE HOSPITALComment on above: Effective Jun 28, 2022 [...] that affects renal tubular secretion. Glucose [Mass/Vol]207 mg/sOQcfg04 - 99 mg/dLBON [facility] Interpretation and review of laboratory resultsAbnormalBON [facility] Potassium [Moles/Vol]4.8 mmol/L3.7 - 5.3 mmol/LBON [facility]UL[facility]ING COUNTY HOSPITALSodium [Moles/Vol]138 mmol/L135 - 144 mmol/LBON [facility] COUNTY HOSPITALUrea nitrogen (BldV) [Mass/Vol]28 mg/dLHigh6 - 20 mg/dLBON PAULDING COUNTY HOSPITALUrea nitrogen/Creatinine (Bld) [Mass ratio]95Lewz2 - 20BON ST. MARY'S HEALTHCARE CENTERCBC with Auto Differentialon 54-45-5490Doiwjvvx Eos #0.35BON [facility]UL[facility] COUNTY HOSPITALAbsolute Immature Granulocyte0.10BON [facility] Absolute Lymph #3.09BON [facility] COUNTY HOSPITALAbsolute Heard #0.73BON [facility] COUNTY HOSPITALBasophils (Bld) [#/Vol]0.09 10*3/uLBON [facility] COUNTY HOSPITALBasophils/100 WBC (Bld)1 %0 - 2 %[facility] CLINICEosinophils/100 WBC (Bld)4 %1 - 4 % [facility] CLINICHematocrit (Bld) [Volume fraction]39.6 %36.3 - 47.1 %[facility] CLINICHemoglobin (Bld) [Mass/Vol]12.8 g/dL11.9 - 15.1 g/dLBON PAULDING COUNTY HOSPITALImmature granulocytes/100 WBC (Bld)1 %Mezz4NIO [facility] HOSPITALInterpretation and review of laboratory resultsAbnormalBON PAULDING COUNTY HOSPITALLymphocytes/100 WBC (Bld)36 %24 - 43 %BON [facility] HOSPITALH (RBC) [Entitic mass]31.3 pg25.2 - 33.5 pgBON FAYETTE COUNTY MEMORIAL HOSPITALHC (RBC) [Mass/Vol] 32.3 g/dL28.4 - 34.8 g/dLBON PAUL[facility] COUNTY HOSPITALMCV (RBC) [Entitic vol]96.8 fL 82.6 - 102.9 fLCARILION CLINICMonocytes/100 WBC (Bld)9 %3 - 12 %[facility] CLINICNRBC Automated0.00.0 per 100 WBCCARILION CLINIC Platelet distribution width (Bld) [Ratio]13.2 %11.8 - 14.4 %[facility] CLINICPlatelet mean volume (Bld) [Entitic vol]8.9 fL8.1 - 13.5 fLRIVERSIDE TAPPAHANNOCK HOSPITAL HEALTHPlatelets (Bld) [#/Vol]368 10*3/uLBON [facility] HEALTHRBC (Bld) [#/Vol]4.09 10*6/uL3.95 - 5.11 m/uLCARILION CLINICSegmented neutrophils/100 WBC (Bld)49 %36 - 65 %[facility] CLINICSegs Absolute4.20 [facility] CLINICWBC (Bld) [#/Vol]8.6 10*3/uLBON SECASPIRUS STANLEY HOSPITALD-Dimer, Quantitativeon 18-58-8884A-Dimer, Quant0.39[facility] CLINICComment on above: When combined with a low [...] more prevalent in patients with distal DVT. [facility]OSPITALKona Group WHITE HOSPITALTroponinon 81-58-2375Sxibbrublqlqup and review of laboratory resultsAbnormalHILLCREST HOSPITALKona Group WHITE HOSPITALTroponin, High Blqirxsoveq96 ng/LHigh0 - 14 ng/LBON [facility] HOSPITALComment on above: High Sensitivity Troponin values cannot be compared with other Troponin methodologies. Patients with high levels of Biotin oral intake (i.e >5mg/day) may have falsely decreased Troponin levels. Samples collected within 8 hours of biotin intake may require additional information for diagnosis. [facility] CLINICInterpretation and review of laboratory resultsAbnormal [facility] [employer] [facility] Healthcare Systemoponin, High Vfesdedvjyl92 ng/LHigh0 - 14 ng/LBON [facility] Mass [employer] WHITE HOSPITALComment on above: High Sensitivity Troponin values cannot be compared with other Troponin methodologies. Patients with high levels of Biotin oral intake (i.e >5mg/day) may have falsely decreased Troponin levels. Samples collected within 8 hours of biotin intake may require additional information for diagnosis. [facility]CRE[facility] HOSPITALKona Group WHITE HOSPITALXR CHEST PORTABLEon 81-42-1529Me evidence of acute cardiopulmonary process. Large body habitus. [facility] CONSOLIDATEDEXAMINATION: ONE XRAY VIEW OF THE CHEST [...] is present over the lower thoracic spine. [facility] Cristina Cabrera MD - 08/06/2022 EXAMINATION: ONE [...] of acute cardiopulmonary process. Large body habitus. [facility] Phone: radiology Study observation (narrative)[facility] Phone: xr CHEST PORTABLEOrdered By: Cristina Englsih on 89-10-2135POA [employer] Phone: us LIVERon 82-76-4113Smixc shows increased echogenicity suggesting hepatic steatosis without focal lesion. With otherwise unremarkable exam [facility] CONSOLIDATEDEXAMINATION: RIGHT UPPER QUADRANT ULTRASOUND 08/04/2022 1:55 [...] No evidence of right upper quadrant ascites. [facility] Ruddy Andrews DO - 08/04/2022 EXAMINATION: RIGHT [...] without focal lesion. With otherwise unremarkable exam [employer] Work Phone: radiology Study observation (narrative)[employer] Work Phone: US LIVEROrdered By: Ruddy Mallory on 52-79-1193RSS Zalando Work Phone: Ceruloplasminon 42-53-1916Xrsajqhnpzaeb09 mg/dL16 - 45 mg/dLBON ZalandoTUBA CITY REGION[facility]ARE CORPORATION ZalandoHepatitis B Surface Antibodyon 61-67-7532JXA surface Ab (S) [Titer]<3.50NINFTUBA CITY REGIONAL HEALTH CARE CORPORATION Zalando Comment on above: REFERENCE RANGE: <10.0 NON-REACTIVE/NOT IMMUNE >=10.0 REACTIVE/IMMUNE ClassPassCBC with Auto Differentialon 98-68-5124Shuemery Eos # 0.32BON ZalandoAbsolute Immature Granulocyte0.07BON ZalandoAbsolute Lymph #3.05BON SECAloricaAbsolute Heard #0.53[facility] ZalandoBasophils (Bld) [#/Vol]0.06 10*3/uLBON Zalando Basophils/100 WBC (Bld)1 %0 - 2 %[facility] ZalandoEosinophils/100 WBC (Bld)4 %1 - 4 %ClassPassHematocrit (Bld) [Volume fraction]38.1 % 36.3 - 47.1 %ClassPassHemoglobin (Bld) [Mass/Vol]11.9 g/dL11.9 - 15.1 g/dLBON ZalandoImmature granulocytes/100 WBC (Bld)1 %Samj1ZNN ZalandoInterpretation and review of laboratory resultsAbnormalTUBA CITY REGIONAL [facility]ALTH [facility]ARE CORPORATION ZalandoLymphocytes/100 WBC (Bld)40 %24 - 43 %ClassPassMCH (RBC) [Entitic mass]31.1 pg25.2 - 33.5 pgBON SECSELECT MEDICAL SPECIALTY HOSPITAL - CLEVELAND-FAIRHILLMCHC (RBC) [Mass/Vol]31.2 g/dL28.4 - 34.8 g/dLBON SECSELECT MEDICAL SPECIALTY HOSPITAL - CLEVELAND-FAIRHILLMCV (RBC) [Entitic vol]99.5 fL82.6 - 102.9 fLBON PAUL[facility] COUNTY HOSPITALMonocytes/100 WBC (Bld)7 %3 - 12 %BON [facility] COUNTY HOSPITALNRBC Automated0.00.0 per 100 WBCBON PAULDING COUNTY HOSPITALPlatelet distribution width (Bld) [Ratio]13.7 %11.8 - 14.4 % BON PA[facility] COUNTY HOSPITALPlatelet mean volume (Bld) [Entitic vol]8.9 fL8.1 - 13.5 fLBON [facility] HEALTHPlatelets (Bld) [#/Vol]357 10*3/uLBON [facility]UL[facility] COUNTY HOSPITALRBC (Bld) [#/Vol]3.83 10*6/uLLow3.95 - 5.11 m/uLCARILION CLINIC Segmented neutrophils/100 WBC (Bld)47 %36 - 65 %BON PAULDING COUNTY HOSPITALSegs Absolute3.61BON SECSELECT MEDICAL SPECIALTY HOSPITAL - CLEVELAND-FAIRHILLWBC (Bld) [#/Vol]7.6 10*3/uLBON ST. MARY[facility] HEALTHCARE CENTERComprehensive Metabolic Panel with Bilirubin on 57-66-6740Qhpsqgo [Mass/Vol]4.6 g/dL3.5 - 5.2 g/dLBON [facility] Albumin/Globulin [Mass ratio]1.8 {ratio}1.0 - 2.5BON PAULDING COUNTY HOSPITALALP (Bld) [Catalytic activity/Vol]53 U/L35 - 104 U/LBON [facility]AKERSFIELD HEALTHALT [Catalytic activity/Vol]36 U/LHigh5 - 33 U/LBON [facility] COUNTY HOSPITALAnion gap [Moles/Vol]13 mmol/L9 - 17 mmol/LBON [facility] BAKERSFIELD HEALTHAST [Catalytic activity/Vol]37 U/LHighNINF - 32 U/LBON [facility] COUNTY HOSPITALBilirubin [Mass/Vol] 0.2 mg/dLLow0.3 - 1.2 mg/dLBON PAULDING COUNTY HOSPITALBilirubin, IndirectCan not be calculated0.00 - 1.00 mg/dLBON PAULDING COUNTY HOSPITALBilirubin.indirect [Mass/Vol]mg/dLNINF - 0.31 mg/dLBON PAULDING COUNTY HOSPITALCalcium [Mass/Vol]9.2 mg/dL8.6 - 10.4 mg/dLBON PAULDING COUNTY HOSPITALChloride [Moles/Vol]102 mmol/L98 - 107 mmol/LBON [facility] COUNTY HOSPITALCO2 [Moles/Vol]24 mmol/L20 - 31 mmol/LBON [facility] HOSPITALCreatinine [Mass/Vol]0.88 mg/dL0.50 - 0.90 mg/dLBON PAULDING COUNTY HOSPITALGFR/1.73 sq M.predicted MDRD (S/P/Bld) [Vol rate/Area]- PINFBON PAULDING COUNTY HOSPITALComment on above: Effective Jun 28, 2022 [...] that affects renal tubular secretion. Glucose [Mass/Vol]116 mg/hOWgon47 - 99 mg/dLBON [facility] Interpretation and review of laboratory resultsAbnormLake Taylor Transitional Care Hospital Potassium [Moles/Vol]4.9 mmol/L3.7 - 5.3 mmol/LBON [facility] HOSPITALProtein [Mass/Vol]7.2 g/dL6.4 - 8.3 g/dLBON PAULDING COUNTY HOSPITALSodium [Moles/Vol]139 mmol/L135 - 144 mmol/LBON [facility] COUNTY HOSPITALUrea nitrogen (BldV) [Mass/Vol]28 mg/dLHigh6 - 20 mg/dLBON ST. MARY'S HEALTHCARE CENTERPOINT OF CARE GLUCOSEon 03-98-5965Xvzytus [Mass/Vol]106 mg/yAFssltb02-518Zrw St. [facility] HospitalComment on above:Performed By: #### POCGLUC #### [facility] [address] [place] [address] [address] 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 !!107 !0.8 ! ! +---------++--------+-----+ ++--------+-----+ +[facility] Phone: vl LOWER EXTREMITY ARTERIAL SEGMENTAL PRESSURES W PPG Ordered By: Ruddy Mallory on 14-96-0026KWU [employer] Phone: vl LOWER EXTREMITY ARTERIAL SEGMENTAL PRESSURES W PPG on 75-61-4953Trlrunnrj Study observation (narrative)BON [employer] Phone: creatine Kinaseon 68-95-5757KI [Catalytic activity/Vol]274 U/BLtku21-444UeursxnbuPromedica Memorial HospitalComment on above: Result Comment: PERFORMED BY: [place] [address] PATHOLOGIST DRUM WORKER GRZEGORZ DUMONT M.D.Performed By: #### CK #### [facility] [address] [place] [address] [place] #### SJOGRENS #### [facility] ,Sjogrens Anti-SSA/SSBon 09-26-6501LE-A/Ro Sjogrens Antibody<0.9Guykrd8.0-0.9 [facility] Memorial HospitalComment on above:Performed By: #### CK #### [facility] [address] [place] [address] [place] #### SJOGRENS #### [facility] ,SS-B/La Sjogrens Antibody<0.7Tqtcrj5.0-0.9[facility] Comment on above:Result Comment: Performed at: [facility] [address] [id number] Parts Assembler: Chandana Oliveros PhD, Phone: [phone] PERFORMED BY: [place] [address] PATHOLOGIST DRUM WORKER GRZEGORZ DUMONT M.D.Performed By: #### CK #### [facility] [address] [place] [address] [place] #### SJOGRENS #### [facility] ,XR hand BI 2Von 27-48-8966TM hand BI 2VSAMARITAN HOSPITAL [address] [place] [address] XRay Report Signed Patient: Virgil Warner MR#: [id number] 52 : 1975 Acct:[id number] Age/Sex: 47 / F ADM Date: 03/02/22 Loc: ICXD Room: Type: [facility] Attending Dr: Tyree Hidalgo MD Ordering Provider: [...] Edwin White M.D.03/02/2022 4:09 PM Dictation Location: [place] [address] Transcribed By: [facility] 03/02/22 1609 Dictated By: Edwin White DO 03/02/22 1608 Signed By: 03/02/22 1609NoWestern Reserve Hospital MARISOL DIGITAL SCREEN BILATERALOrdered By: Vivian Lemos on 06-44-3196Xh mammographic evidence of malignancy. BI-RADS 1 BIRADS: BIRADS - CATEGORY 1 Negative, no evidenceof malignancy. Normal interval follow-up is recommended in 12 months. OVERALL ASSESSMENT - NEGATIVEA letter of notification will be sent to the patient regarding the results. The [employer] recommends annual mammograms for women 40 years and older.[employer] Phone: eXAMINATION: SCREENING DIGITAL BILATERAL MAMMOGRAM WITH TOMOSYNTHESIS, 05/15/2021 TECHNIQUE: Screening mammography was performed with tomosynthesis including MLO and CC views of the bilateral breasts.Computer aided detection was used for the interpretation of this exam. COMPARISON: 03/12/2016 HISTORY: Screening. FINDINGS: The breast tissue is composed of scattered fibroglandular tissue. There is no suspicious mass, suspicious microcalcification, or area of architectural distortion.[employer] Phone: [employer] Phone: US FIBROSCANon 30-88-0217LN FIBROSCANVelocity Controlled Transient Elastography (Fibroscan) Bag Turner: Ameena Crisostomo Attending: Leah Martins MD ? [...] S2-3. Clinical correlation indicated Leah Martins MD [facility] Interpreted by: Leah Martins MD Signed by: Leah Martins MD 04/14/21 Final resultNoGunnison Valley HospitalFerritinOrdered By: Claudia Willett on 41-35-3608Lhzchknm860 ug/LHigh13 - 150 ug/LMercy Farman Work Phone: Iron and TIBCOrdered By: Clauida Willett on 03-12-2021 Iron [Mass/Vol]71 ug/dL37 - 145 ug/dLProvision Interactive Technologies Phone: Iron Yxvzergjtr67 %Low20 - 55 %[employer] Phone: TIBC412 ug/dL250 - 450 ug/dLProvision Interactive Technologies Phone: UIBC341 ug/dL112 - 347 ug/dLWayne HospitalEmbedster Phone: No Panel InformationOrdered By: Claudia Willett on 16-86-7464Xyjjesawppjhcz and review of laboratory resultsAbnormalWayne HospitalEmbedster Phone: [facility] [employer] Phone: cBCOrdered By: Claudia Willett on 72-03-4328Qxabxwwxss (Bld) [Volume fraction]45.2 %36.3 - 47.1 %[employer] Phone: Hemoglobin.gastrointestinal spec 1 Ql (Stl)14.1 g/dL 11.9 - 15.1 g/dLWayne HospitalEmbedster Phone: MCH (RBC) [Entitic mass]30.2 pg25.2 - 33.5 pgWayne HospitalEmbedster Phone: MCHC (RBC) [Mass/Vol]31.2 g/dL28.4 - 34.8 g/dLWayne HospitalEmbedster Phone: MCV (RBC) [Entitic vol]96.8 fL82.6 - 102.9 fLWayne HospitalEmbedster Phone: NRBC Automated0.00.0 per 100 WBCWayne HospitalEmbedster Phone: platelet distribution width (Bld) [Ratio]12.5 %11.8 - 14.4 %[facility] HospitalTellwiki Phone: platelet mean volume (Bld) [Entitic vol]9.0 fL8.1 - 13.5 [facility] Medical CenterEmbedster Phone: platelets (Bld) [#/Vol]372 10*3/uLWayne HospitalEmbedster Phone: RBC (Bld) [#/Vol]4.67 10*6/uL3.95 - 5.11 m/MililaniEmbedster Phone: WBC (Bld) [#/Vol]7.5 10*3/uLWayne HospitalEmbedster Phone: Wayne HospitalEmbedster Phone: comprehensive Metabolic PanelOrdered By: Claudia Willett on 16-36-6786Vcqdjkg [Mass/Vol]4.6 g/dL3.5 - 5.2 g/dLWayne HospitalEmbedster Phone: Xlbumin/Globulin [Mass ratio]1.8 {ratio}[facility] HospitalTellwiki Phone: GLP (Bld) [Catalytic activity/Vol]88 U/L35 - 104 U/L [facility] HospitalTellwiki Phone: CLT [Catalytic activity/Vol]52 U/LHigh5 - 33 U/LMwilson [address] hospitalTellwiki Phone: Inion gap [Moles/Vol]12 mmol/L9 - 17 mmol/LMreQwip Work Phone: ZST [Catalytic activity/Vol]45 U/LHigh<32MerEmbedster Phone: Bilirubin [Mass/Vol]0.32 mg/dL0.3 - 1.2 mg/dLWayne HospitalEmbedster Phone: Aalcium [Mass/Vol]9.8 mg/dL8.6 - 10.4 mg/dLWayne HospitalEmbedster Phone: Xhloride [Moles/Vol]102 mmol/L98 - 107 mmol/LMreQwip Work Phone: BO2 [Moles/Vol]25 mmol/L20 - 31 mmol/LMercy Farman Work Phone: Oreatinine [Mass/Vol]0.68 mg/dL0.50 - 0.90 mg/dLWayne HospitalEmbedster Phone: Free PSA/Total PSA [Mass fraction]7.2 g/dL6.4 - 8.3 g/dLWayne HospitalEmbedster Phone: GFR >60>60 mL/minEast [facility] City [facility] [employer] Phone: GFR Non->60>60 mL/minEast [facility] City Hospital [employer] Work Phone: Glucose [Mass/Vol]231 mg/mCBfao10 - 99 mg/dLEast [facility] [employer] Phone: Interpretation and review of laboratory results AbnormalEast [facility] City Hospital [facility] Work Phone: potassium [Moles/Vol]4.7 mmol/L3.7 - 5.3 mmol/LMercy Farman Work Phone: sodium [Moles/Vol]139 mmol/L135 - 144 mmol/LMercy Farman Work Phone: Urea nitrogen (BldV) [Mass/Vol]24 mg/dLHigh6 - 20 mg/dLEast [facility] City Hospital [employer] Phone: Urea nitrogen/Creatinine (Bld) [Mass ratio]35HighEast Liverpool City Hospital Farman Work Phone: [facility] [employer] Phone: Hepatitis B Core Antibody, TotalOrdered By: Claudia Willett on 04-96-0344Bjv B Core Total AbNon-ReactiveNONREACTIVEEast [facility] [employer] Phone: Hepatitis B Surface AntigenOrdered By: Claudia Willett on 77-03-2499Wusywsqwx B Surface AgNon-ReactiveNONREACTIVEEast [facility] [employer] Work Phone: Hepatitis C AntibodyOrdered By: Claudia Willett on 65-07-3243Sgczflzok C AbNon-ReactiveNONREACTIVEWayne HospitalEmbedster Phone: comment on above: The hepatitis C [...] Chemistry - challengeOrdered By: Claudia Willett on 15-97-1296CKU/1.73 sq M.predicted MDRD (S/P/Bld) [Vol rate/Area][employer] Phone: comment on above:Average GFR for 40-49 years old: 99 mL/min/1.73sq m Chronic Kidney Disease: <60 mL/min/1.73sq m Kidney failure: <15 mL/min/1.73sq m eGFR calculated using average adult body mass. Additional eGFR calculator available at: http://www.[employer]/multiple_crcl_2012.htm Stage 1: Some kidney damage normal GFR Stage 2: Mild kidney damage GFR 60-89 Stage 3: Moderate kidney damage GFR 30-59 Stage 4: Severe kidney damage GFR 15-29 Stage 5: Severe kidney damage GFR <15 ESRD - chronic treatment by dialysis or transplant No Panel InformationOrdered By: Claudia Willett on 07-25-5423EajoeProvision Interactive Technologies Phone: Hepatic Function PanelOrdered By: Vivian Lemos on 04-06-5955Yhpvbhr [Mass/Vol]4.3 g/dL3.5 - 5.2 g/dLProvision Interactive Technologies Phone: albumin/Globulin [Mass ratio]1.3 {ratio}[employer] Phone: aLP (Bld) [Catalytic activity/Vol]102 U/L35 - 104 U/L [employer] Phone: aLT [Catalytic activity/Vol]34 U/LHigh5 - 33 U/LM[address] hospitalTellwiki Phone: aST [Catalytic activity/Vol]24 U/L<32[employer] Phone: bilirubin [Mass/Vol]0.24 mg/dLLow0.3 - 1.2 mg/dLPro[employer] Phone: bilirubin, IndirectCANNOT BE CALCULATED0.00 - 1.00 mg/dLPro[employer] Phone: bilirubin.indirect [Mass/Vol]mg/dL<0.31 mg/dLMercy Health Work Phone: [...] UA2 TO 5[facility] Work Phone: Glucose, Ur1+AbnormalNEGATIVEWayne Hospitalcy Health Work Phone: Interpretation and review of [...] UANOT REPORTED0 /HPFMercy Health Work Phone: specific [place], UA>1.030HighMercy Health Work Phone: Trichomonas, UANOT REPORTEDNoneMercy Health Work Phone: Turbidity UACLEARCLEARMercy Health Work Phone: Urinalysis CommentsNOT REPORTEDMercy Health Work Phone: Urine HgbNegativeNEGATIVEMercy Health Work Phone: Urobilinogen, UrineNormalNormalMercy Health Work Phone: WBC, UA0 TO 2[facility] Work Phone: Yeast, UANOT REPORTEDNoneMercy Health Work Phone: XR ABDOMEN (KUB) (SINGLE AP VIEW)Ordered By: Meghan León on 70-80-1797Tebngufemv of a very small calcification over the lower pole of the left kidney. Probable hepatomegaly. No evidence of obstructive bowel process.[employer] Phone: eXAMINATION: ONE SUPINE XRAY VIEW(S) OF [...] with battery pack over the left iliac wing.[employer] Phone: efrida cj Incoming Radiant Results From [employer] - 01/27/2021 1:29 PM EDT EXAMINATION: ONE [...] hepatomegaly. No evidence of obstructive bowel process. [employer] Phone: ct LUMBAR SPINE W CONTRASTOrdered By: Jasper Cleveland on 70-01-1262Onyblov disc bulges at L4-5 and L5-S1. No significant focal disc protrusion or stenosis is appreciated. Spinal stimulator device.[employer] Phone: eXAMINATION: CT OF THE LUMBAR SPINE [...] sac. No significant focal disc protrusion is detected.[employer] Work Phone: efrida, [facility] Incoming Radiant Results From [employer] - 01/20/2021 3:43 PM EDT EXAMINATION: CT [...] or stenosis is appreciated. Spinal stimulator device. [employer] Phone: lipid Panelon 15-58-3709Atactgbvjwp [Mass/Vol]127 mg/dL<200[place], [place]Comment on above: Cholesterol Guidelines: <200 Desirable 200-240 Borderline >240 Undesirable Cholesterol in HDL [Mass/Vol]28 mg/dLLow>40[place], KYComment on above: HDL Guidelines: <40 Undesirable 40-59 Borderline >59 Desirable Cholesterol in LDL [Mass/Vol]31 mg/dL0 - 130 mg/dLStras[place], KYComment on above: LDL Guidelines: <100 Desirable 100-129 Near to/above Desirable 130-159 Borderline >159 Undesirable Direct (measured) LDL and calculated LDL are not interchangeable tests. Cholesterol in VLDL [Mass/Vol]NOT REPORTEDHigh1 - 30 mg/dLStras[place], [place] Cholesterol.total/Cholesterol in HDL [Mass ratio]4.5 {ratio}<5[place], KYInterpretation and review of laboratory resultsAbnormalSt[place], [place] Triglyceride [Mass/Vol]340 mg/dLHigh<150[place], KYComment on above: Triglyceride Guidelines: <150 Desirable 150-199 Borderline 200-499 High >499 Very high Based on AHA Guidelines for fasting triglyceride, June 2012. CT HEAD WO CONTRASTon 51-80-7930Ee acute intracranial abnormality.[place], KYEXAMINATION: CT OF THE HEAD WITHOUT CONTRAST [...] abnormality of the visualized skull or soft tissues.[employer]Wanna[employer]ee cj Incoming Radiant Results From [employer] - 07/25/2020 12:02 PM EDT EXAMINATION: CT [...] soft tissues. IMPRESSION: No acute intracranial abnormality. AskforTaskXR ABDOMEN (KUB) (SINGLE AP VIEW)on . No renal or ureteral calculi identified. 2. Mild constipation.WhoWannaMONDOVI, [place] EXAMINATION: ONE SUPINE XRAY VIEW(S) OF [...] the colon and rectum. No acute osseous abnormality.WhoWannaBee Mhcj Incoming Radiant Results From [employer] - 01/25/2020 10:09 PM EDT EXAMINATION: ONE [...] or ureteral calculi identified. 2. Mild constipation. [facility], ALC-Reactive Proteinon 33-80-0171JSF [Mass/Vol]2.8 mg/L0 - 5 mg/[facility], KYCKon 29-89-5288Sjzrm CK107 U/L26 - 192 U/[facility], ALHemoglobin A1Con 68-44-0312Snppmve [Mass/Vol]263 mg/dLWooster Community Hospital, [place] Comment on above:The ADA and AACC recommend providing the estimated average glucose result to permit better patient understanding of their HBA1c result. HbA1c (Bld) [Mass fraction]10.8 %High4.8 - 5.9 %[facility], [place] Interpretation and review of laboratory resultsAbnormalWooster Community Hospital, KYIgAon 00-13-5278YpT [Mass/Vol]225 mg/dL70 - 400 mg/dLWooster Community Hospital, KYIgGon 52-51-5267ZjO [Mass/Vol]768 mg/dL700 - 1600 mg/dLWooster Community Hospital, KYIgMon 31-08-2704ExP [Mass/Vol]97 mg/dL40 - 230 mg/dLWooster Community Hospital, ALLactate Dehydrogenaseon 34-58-1853GL108 U/L135 - 214 U/[facility], [place] Sedimentation Rateon 48-80-3073Ikp Rate14 mm0 - 20 mmWooster Community Hospital, KYT4on 67-51-8134E8, Total6.7 ug/dL4.5 - 12 ug/dLWooster Community Hospital, KYT4, Freeon 90-41-6506Rdsjnitxb, Free1.02 ng/dL0.93 - 1.7 ng/dLW[facility]oster Community Hospital, ALTSH without Reflexon 14-50-9614QTE Qn0.70 m[IU]/[facility], ALALTOrdered By: Flip Dodson on 02-48-1812MYT [Catalytic activity/Vol]26 U/L5 - 33 U/[facility] Work Phone: aSTOrdered By: Flip Dodson on 70-97-2293TMR [Catalytic activity/Vol]20 U/L<32MerPerfectus Biomed Work Phone: amylaseOrdered By: Flip Dodson on 82-11-1293Displhz [Catalytic activity/Vol]45 U/L28 - 100 U/LMercy Farman Work Phone: basic Metabolic PanelOrdered By: Flip Dodson on 20-71-8870Dstqk gap [Moles/Vol]17 mmol/L9 - 17 mmol/LMercy Health Work Phone: bun/Cre Lphxi04RsteJdizl Farman Work Phone: calcium [Mass/Vol]9.6 mg/dL8.6 - 10.4 mg/dLEast [facility] Work Phone: chloride [Moles/Vol]96 mmol/LLow98 - 107 mmol/LMercy Farman Work Phone: cO2 [Moles/Vol]22 mmol/L20 - 31 mmol/LMercy Farman Work Phone: creatinine [Mass/Vol]0.63 mg/dL0.5 - 0.9 mg/dLWayne HospitalPerfectus Biomed Work Phone: GFR >60>60 mL/minWayne HospitalPerfectus Biomed Work Phone: GFR CommentEast [facility] City Hospital [facility] Work Phone: comment on above:Average GFR for 40-49 years old: 99 mL/min/1.73sq m Chronic Kidney Disease: <60 mL/min/1.73sq m Kidney failure: <15 mL/min/1.73sq m eGFR calculated using average adult body mass. Additional eGFR calculator available at: http://www.[employer]/multiple_crcl_2012.htm GFR Non->60>60 mL/minWayne HospitalPerfectus Biomed Work Phone: GFR StagingMerEmbedster Phone: comment on above:Stage 1: Some kidney damage normal GFR Stage 2: Mild kidney damage GFR 60-89 Stage 3: Moderate kidney damage GFR 30-59 Stage 4: Severe kidney damage GFR 15-29 Stage 5: Severe kidney damage GFR <15 ESRD - chronic treatment by dialysis or transplant Glucose [Mass/Vol]389 mg/zDVixk84 - 99 mg/dLWayne HospitalEmbedster Phone: Interpretation and review of laboratory results AbnormalWayne HospitalEmbedster Phone: potassium [Moles/Vol]4.4 mmol/L3.7 - 5.3 mmol/LMwilson [address] hospitalShiny Media Work Phone: sodium [Moles/Vol]135 mmol/L135 - 144 mmol/LMwil[address] hospitaly [employer] Phone: Urea nitrogen [Mass/Vol]16 mg/dL6 - 20 mg/dLWayne HospitalEmbedster Phone: cBC Auto DifferentialOrdered By: Flip Dodson on 49-85-4282Pynvqynq Eos #0.24Wayne HospitalEmbedster Phone: absolute Immature Granulocyte0.10Wayne HospitalEmbedster Phone: absolute Lymph #3.09Wayne HospitalEmbedster Phone: absolute Heard #0.50Wayne HospitalEmbedster Phone: basophils (Bld) [#/Vol]0.09 10*3/uLWayne HospitalEmbedster Phone: basophils/100 WBC (Bld)1 %0 - 2 %[employer] Phone: differential TypeNOT REPORTEDWayne HospitalEmbedster Phone: eosinophils/100 WBC (Bld)3 %1 - 4 %[employer] Phone: erythrocyte distribution width (RBC) [Ratio]11.7 %Low 11.8 - 14.4 %[employer] Phone: Hematocrit (Bld) [Volume fraction]45.7 %36.3 - 47.1 % [employer] Phone: Hemoglobin (Bld) [Mass/Vol]14.4 g/dL11.9 - 15.1 g/dL [facility] HospitalTellwiki Phone: Immature granulocytes/100 WBC (Bld)1 %Jdnh5BwmznEmbedster Phone: Interpretation and review of laboratory results AbnormalWayne HospitalEmbedster Phone: lymphocytes/100 WBC (Bld)39 %24 - 43 %[employer] Phone: MCH (RBC) [Entitic mass]30.4 pg25.2 - 33.5 pgWayne HospitalEmbedster Phone: MCHC (RBC) [Mass/Vol]31.5 g/dL28.4 - 34.8 g/dLWayne HospitalEmbedster Phone: MCV (RBC) [Entitic vol]96.4 fL82.6 - 102.9 fLWayne HospitalEmbedster Phone: Monocytes/100 WBC (Bld)6 %3 - 12 %[employer] Phone: NRBC Automated0.00.0 per 100 WBCWayne HospitalEmbedster Phone: platelet EstimateNOT REPORTEDWayne HospitalEmbedster Phone: platelet mean volume (Bld) [Entitic vol]9.1 fL8.1 - 13.5 fLWayne HospitalEmbedster Phone: Platelets (Bld) [#/Vol]388 10*3/uLWayne HospitalEmbedster Phone: RBC (Bld) [#/Vol]4.74 10*6/uL3.95 - 5.11 m/MililaniEmbedster Phone: rBC morphology finding Nom (Bld)NOT REPORTEDProvision Interactive Technologies Phone: segmented neutrophils/100 WBC (Bld)50 %36 - 65 %[employer] Phone: segs Absolute4.00[employer] Phone: WBC (Bld) [#/Vol]8.0 10*3/uLWayne HospitalEmbedster Phone: WBC MorphologyNOT REPORTEDProvision Interactive Technologies Phone: lipaseOrdered By: Flip Dodson on 67-22-6803Upufus [Catalytic activity/Vol]35 U/L13 - 60 U/LMercTellwiki Phone: US GALLBLADDER RUQOrdered By: Flip Dodson on 25-45-2384Ux acute abnormality. Fatty liver.[employer] Phone: eXAMINATION: RIGHT UPPER QUADRANT ULTRASOUND 10/18/2019 [...] OTHER: No evidence of right upper quadrant ascites.[employer] Phone: edi, cj Incoming Radiant Results From [employer] - 10/18/2019 2:07 PM EST EXAMINATION: RIGHT [...] ascites. IMPRESSION: No acute abnormality. Fatty liver. [employer] Phone: eKG 12 LeadOrdered By: Jasper Cleveland on 35-89-8582Aeqimi Sezg41RRMVvebeCharleston Laboratories Phone: U Zbhs15rniohxiNgesvArt [employer] Phone: p-R Maitswkp045 [employer] Phone: Q-T Ddmvbqqh998 [employer] Phone: QRS Aaglcwuc97 [employer] Phone: QTc Calculation (Bazett)477 [employer] Phone: R Wrpm47snnzbsoXbygrArt [employer] Phone: T Hfdz41qekxzwoZswbfArt [employer] Phone: Ventricular Upfg12ONFIpqanCharleston Laboratories Phone: Normal sinus rhythm Normal ECG When compared with ECG of 26-MAR-2019 16:56, No significant change was found Confirmed by SHARON VARGAS ([id number]) on 10/03/2019 10:54:07 PMPro[employer] Phone: edi, [facility] Incoming Ekg Results From [employer] - 10/03/2019 10:54 PM EST Normal sinus rhythm Normal ECG When compared with ECG of 26-MAR-2019 16:56, No significant change was found Confirmed by SHARON VARGAS ([id number]) on 10/03/2019 10:54:07 PMPro[employer] Technologies Phone: Otheron 56-54-6191Bbrrvtfk suggest gastroparesis for solid materials.[employer] [place] CK1TIENEXAMINATION: NUCLEAR MEDICINE GASTRIC EMPTYING STUDY 08/22/2019 11:54 [...] significantesophageal retention, hiatal hernia or reflux was observed.[facility] HospitalBee Mhpn Incoming Radiant Results From [employer] - 08/24/2019 10:08 AM EST EXAMINATION: NUCLEAR [...] IMPRESSION: Findings suggest gastroparesis for solid materials. [facility] HospitalEMELINA HEAD NECK SOFT TISSUE THYROIDon 08-03-20191.3 [...] no more than four nodules should be followed.[facility] HospitalTIENEXAMINATION: THYROID ULTRASOUND 08/03/2019 COMPARISON: None available [...] (2) 2. Echogenicity: Hypoechoic (2) 3. Shape: Jsiog-lmii-brsq (0) 4. Margins: Smooth (0) 5. Echogenic foci: None (0) ACR TI-RADS total points: 4 ACR TI-RADS risk category: TR4 Prior biopsy: Unknown. Cervical lymphadenopathy: No abnormal lymph nodes in the imaged portions of the neck.[facility] HospitalBee Mhpn Incoming Radiant Results From [employer] - 08/03/2019 3:19 PM EST EXAMINATION: THYROID [...] (2) 2. Echogenicity: Hypoechoic (2) 3. Shape: Ajsev-tjzl-otam (0) 4. Margins: Smooth (0) 5. Echogenic [...] more than four nodules should be followed. [facility] HospitalShiny MediaUNIVERSITY HE[facility] LAKEWO[facility], TIENCT ABDOMEN PELVIS W IV CONTRAST Additional Contrast? Oralon . No acute inflammatory process identified. 2. Bilateral punctate nephrolithiasis. 3. Hepatomegalywith steatosis.[facility] FarmanUNIVERSITY [facility]KEWO[facility], KYEXAMINATION: CT OF THE ABDOMEN AND PELVIS [...] Implanted thoracic neurostimulator. No acute osseous abnormality identified.[facility] General HospitalR&M Engineering [facility] BeachesBee Jarad Incoming Radiant Results From [employer] - 07/30/2019 3:42 PM EST EXAMINATION: CT [...] Bilateral punctate nephrolithiasis. 3. Hepatomegaly with steatosis. [facility], ALCBC Auto Differentialon 63-50-6887Grzkskahg (Bld) [#/Vol] 0.06 10*3/[facility], KYBasophils/100 WBC (Bld)1 %0 - 2 %[facility], KYDifferential TypeNOT REPORTEDWooster Community Hospital, KYEosinophils (Bld) [#/Vol] 0.33 10*3/[facility], KYEosinophils/100 WBC (Bld)4 %1 - 4 %[facility], KYErythrocyte distribution width (RBC) [Ratio]12.1 %11.8 - 14.4 %[facility], KYHematocrit (Bld) [Volume fraction]45.8 %36.3 - 47.1 %[facility], KYHemoglobin (Bld) [Mass/Vol]14.6 g/dL11.9 - 15.1 g/dLW[facility]oster Community Hospital, [place] Immature granulocytes (Bld) [#/Vol]0.12 10*3/uLWhite Hospital- [place], TIENImmature granulocytes (Bld) [#/Vol]1 %Nbdb6HynjsW[facility]oster [facility] Hospital, TIENInterpretation and review of laboratory resultsAbnormalW[facility]oster [facility] Hospital, TIENLymphocytes (Bld) [#/Vol]3.67 10*3/uLWhite Hospital- [place], TIENLymphocytes/100 WBC (Bld)42 %24 - 43 %[facility], TIENH (RBC) [Entitic mass]30.3 pg25.2 - 33.5 pgWooster Community Hospital, ALMCHC (RBC) [Mass/Vol]31.9 g/dL28.4 - 34.8 g/dLWhite Hospital- [place], TIENMCV (RBC) [Entitic vol]95.0 fL82.6 - 102.9 fLWooster Community Hospital, TIENMonocytes (Bld) [#/Vol]0.66 10*3/[facility], TIENMonocytes/100 WBC (Bld)8 %3 - 12 %[facility], ALPlatelet mean volume (Bld) [Entitic vol]9.1 fL8.1 - 13.5 fLWooster Community Hospital, KYPlatelets (Bld) [#/Vol]NOT REPORTEDW[facility]oster [facility] Hospital, KYPlatelets (Bld) [#/Vol] 406 10*3/uLWhite Hospital- [place], ALRBC (Bld) [#/Vol]4.82 10*6/uL3.95 - 5.11 m/uL [facility], ALRBC morphology finding Nom (Bld)NOT REPORTEDW[facility]oster [facility] Hospital, TIENSegmented neutrophils/100 WBC (Bld)44 %36 - 65 %[facility], TIENSegs Absolute3.94[facility]- [place], KYWBC (Bld) [#/Vol]8.8 10*3/uLWhite Hospital- [place], [place] WBC (Bld) [#/Vol]0.0 10*3/uL0.0 per 100 WBCWooster Community Hospital, ALWBC MorphologyNOT REPORTEDWhite Hospital- [place], KYComprehensive Metabolic Panelon 49-83-9879Tjhjaxv [Mass/Vol]4.3 g/dL3.5 - 5.2 g/dLWhite Hospital- [place], KYAlbumin/Globulin [Mass ratio]1.2 {ratio}[facility]- [place], KYALP [Catalytic activity/Vol]85 U/L35 - 104 U/LMMercy Hospital- [place], KYALT [Catalytic activity/Vol]30 U/L5 - 33 U/LMselect medical specialty hospital [facility]- [place], KYAnion gap [Moles/Vol]14 mmol/L9 - 17 mmol/LMselect medical specialty hospital [facility]- [place], KYAST [Catalytic activity/Vol]23 U/L<32[facility]- [place], KYBilirubin Ql (U)0.21 mg/dL Low0.3 - 1.2 mg/dLWhite Hospital- [place], KYBun/Cre Wizpn78IitjBrkho Health- [place], [place] Calcium [Mass/Vol]9.9 mg/dL8.6 - 10.4 mg/dLWooster [facility] Hospital, KYChloride [Moles/Vol]98 mmol/L98 - 107 mmol/[facility]- [place], KYCO2 [Moles/Vol]24 mmol/L 20 - 31 mmol/LMMercy Hospital- [place], KYCreatinine [Mass/Vol]0.63 mg/dL0.5 - 0.9 mg/dL [facility], KYGFR >60>60 mL/minW[facility]oster Community Hospital, KYGFR Non->60>60 mL/minW[facility]oster [facility] Hospital, KYGlucose [Mass/Vol]328 mg/dL High70 - 99 mg/dLW[facility]oster [facility] Hospital, KYInterpretation and review of laboratory resultsAbnormalW[facility]oster [facility] Hospital, KYPotassium [Moles/Vol]4.9 mmol/L3.7 - 5.3 mmol/LMMercy Hospital- [place], KYProtein [Mass/Vol]7.8 g/dL6.4 - 8.3 g/dLW[facility], KYSodium [Moles/Vol]136 mmol/L135 - 144 mmol/LMMercy Hospital- [place], KYUrea nitrogen [Mass/Vol]16 mg/dL6 - 20 mg/dLWooster Community Hospital, KYHemoglobin A1Con 89-61-6596Snpwtck [Mass/Vol]260 mg/dLW[facility]oster Community Hospital, TIENComment on above:The ADA and AACC recommend providing the estimated average glucose result to permit better patient understanding of their HBA1c result. HbA1c (Bld) [Mass fraction]10.7 %High4.8 - 5.9 %[facility], [place] Interpretation and review of laboratory resultsAbnoMercy Health [facility]field Hospital, [place] Lipaseon 05-97-4128Hunpjw [Catalytic activity/Vol]36 U/L13 - 60 U/[facility], ALMetabolic Panelon 01-70-2728DGH/1.73 sq M predicted among non-blacks MDRD (S/P/Bld) [Vol rate/Area][facility] ALComyayo on above:Stage 1: Some kidney damage normal [...] body mass. Additional eGFR calculator available at: http://www.[employer]/multiple_crcl_2012.htm Glucose, Fastingon 13-99-5467Yyvaeii [Mass/Vol]152 mg/kYMnay59 - 99 mg/dLWooster Community Hospital, ALInterpretation and review of laboratory resultsAbnoMercy Health [facility] Hospital, ALBasic Metabolic Panelon 02-79-8136Fqokc gap [Moles/Vol]17 mmol/L9 - 17 mmol/LMNationwide Children's Hospital, KYBun/Cre Xxxxh43TuwfjWooster Community Hospital, KYCalcium [Mass/Vol]9.7 mg/dL8.6 - 10.4 mg/dLWooster [facility] Hospital, KYChloride [Moles/Vol]96 mmol/LLow98 - 107 mmol/[facility], KYCO2 [Moles/Vol]22 mmol/L20 - 31 mmol/LMNationwide Children's Hospital, KYCreatinine [Mass/Vol]0.65 mg/dL0.5 - 0.9 mg/dLWooster [facility] Hospital, KYGFR >60>60 mL/minW[facility]oster Community Hospital, KYGFR Non- >60>60 mL/minW[facility]oster [facility] Hospital, KYGlucose [Mass/Vol]310 mg/dLHigh 70 - 99 mg/dLW[facility]oster [facility] Hospital, ALInterpretation and review of laboratory results AbnormalW[facility]oster Community Hospital, KYPotassium [Moles/Vol]4.4 mmol/L3.7 - 5.3 mmol/LMNationwide Children's Hospital, KYSodium [Moles/Vol]135 mmol/L135 - 144 mmol/LMNationwide Children's Hospital, [place] Urea nitrogen [Mass/Vol]12 mg/dL6 - 20 mg/dLWooster Community Hospital, ALHemoglobin A1Con 44-15-2969Hkjbknb [Mass/Vol]263 mg/dLWooster Community Hospital, ALComment on above:The ADA and AACC recommend providing the estimated average glucose result to permit better patient understanding of their HBA1c result. HbA1c (Bld) [Mass fraction]10.8 %High4.8 - 5.9 %[facility], [place] Interpretation and review of laboratory resultsAbnormalWooster Community Hospital, ALLDL Cholesterol, Directon 86-73-2682Inhaucajzdy in LDL [Mass/Vol]64 mg/dL<100[facility], ALComment on above: LDL Guidelines: <100 Desirable 100-129 Near to/above Desirable 130-159 Borderline >159 Undesirable Direct (measured) LDL and calculated LDL are not interchangeable tests. Lipid Panelon 40-71-8313Vdzzkqjpavf [Mass/Vol]166 mg/dL<200[facility], [place] Comment on above: Cholesterol Guidelines: <200 Desirable 200-240 Borderline >240 Undesirable Cholesterol in HDL [Mass/Vol]28 mg/dLLow>40W[facility], ALComment on above: HDL Guidelines: <40 Undesirable 40-59 Borderline >59 Desirable Cholesterol in LDL [Mass/Vol]0 - 130 mg/dLWooster Community Hospital, ALComment on above: Calculation not valid for Triglyceride value greater than 400 mg/dL. Direct LDL reflexed LDL Guidelines: <100 Desirable 100-129 Near to/above Desirable 130-159 Borderline >159 Undesirable Direct (measured) LDL and calculated LDL are not interchangeable tests. Cholesterol in VLDL [Mass/Vol]1 - 30 mg/dLStras[place], [place] Cholesterol.total/Cholesterol in HDL [Mass ratio]5.9 {ratio}High<5[place], KYInterpretation and review of laboratory resultsAbnormalSt[place], KYTriglyceride [Mass/Vol]665 mg/dLHigh<150[place], KYComment on above: Triglyceride Guidelines: <150 Desirable 150-199 Borderline 200-499 High >499 Very high Based on AHA Guidelines for fasting triglyceride, June 2012. Metabolic Panelon 77-35-6128BHH/1.73 sq M predicted among non-blacks MDRD (S/P/Bld) [Vol rate/Area][place], KYComment on above:Average GFR for 40-49 years old: 99 mL/min/1.73sq m Chronic Kidney Disease: <60 mL/min/1.73sq m Kidney failure: <15 mL/min/1.73sq m eGFR calculated using average adult body mass. Additional eGFR calculator available at: http://www.[employer]/multiple_crcl_2012.htm Stage 1: Some kidney damage normal GFR Stage 2: Mild kidney damage GFR 60-89 Stage 3: Moderate kidney damage GFR 30-59 Stage 4: Severe kidney damage GFR 15-29 Stage 5: Severe kidney damage GFR <15 ESRD - chronic treatment by dialysis or transplant Vital Signs Date TimeVital SignValuePerforming VnirizabqOvvnywsn53-09-3591 14:30-0500Body ynqbliajfoo50.59 [degF][address]11-07-2025 14:30-0500 Diastolic blood ruyuvirh11 mm[Hg][address]11-07-2025 14:30-0500Heart rate77 /minMth [address] [place], [place] 9722711-07-2025 14:30-0500 Respiratory rate18 /minMth [address] [place], [place] 9722711-07-2025 14:30-0500 Systolic blood yjekiqtr366 mm[Hg][address]10-30-2025 14:04-0400Body dfhhhdumzrz78.69 [degF][facility] 03[facility]10-30-2025 14:04-0400Diastolic blood zhsplaek28 mm[Hg][facility] 03[facility] 07-25-2025 14:04-0400Heart rate86 /minMth 03[facility]10-30-2025 14:04-0400Respiratory rate18 /minMth 03[facility]10-30-2025 14:04-0400Systolic blood rwedxqaj132 mm[Hg][facility] 03[facility] 07-23-2025 09:30-0400Diastolic blood ioiaeufo24 mm[Hg][place] Everett MD Work Phone: [facility]10-28-2025 09:30-0400Heart rate88 /minThomas Karlos MULLEN Work Phone: [facility]10-28-2025 09:30-0400 Respiratory rate17 /minRosalioomas Karlos MULLEN Work Phone: [facility]10-28-2025 09:30-2008GeS4% (BldA) [Mass fraction]94 %Florida Everett MD Work Phone: [facility]10-28-2025 09:30-0400Systolic blood utdrucgh708 mm[Hg]Florida Everett MD Work Phone: [facility]10-28-2025 09:07-0400Body cqxuozguxdc40 [degF]Florida Everett MD Work Phone: [facility]10-28-2025 06:33-0400Body clarhm470.6 Trey Everett MD Work Phone: [facility]10-28-2025 06:33-0400Body mass index (BMI) [Ratio]36.74 kg/l5FndkzyFlorida Everett MD Work Phone: [facility]10-28-2025 06:33-0400Body .24 kgThanalia Everett MD Work Phone: [facility]10-22-2025 13:35-0400Body cyefeswpfpy25.8 [degF][address]10-22-2025 13:35-0400 Diastolic blood narnywot57 mm[Hg][address]10-22-2025 13:35-0400Heart rate94 /minMth [address] [place], [place] 9722710-22-2025 13:35-0400 Respiratory rate20 /minMth [address] [place], [place] 9722710-22-2025 13:35-0400 Systolic blood qyiioypr659 mm[Hg][address]09-29-2025 12:15-0400Body .64 [facility] 12:15-0400Body mass index (BMI) [Ratio]37.1 kg/x2YpitlawgfPromedica Memorial Hospital09-29-2025 12:15-0400Body svbioa805.32 kgProm[facility]ica [facility] 06-19-2025 13:32-0400Body ipriatyogyo06 [degF][address] 06-19-2025 13:32-0400Diastolic blood snqsujwi58 mm[Hg][address]09-24-2025 13:32-0400Heart rate87 /minMth [address] [place] [address] 06-19-2025 13:32-0400Respiratory rate18 /minMth [address] [place] [address] 06-19-2025 13:32-0400Systolic blood pzyduenk835 mm[Hg][address]09-17-2025 13:44-0400Body easamltrchb85.59 [degF][address]09-17-2025 13:44-0400Diastolic blood akpgstkb80 mm[Hg][address]09-17-2025 13:44-0400Heart rate88 /minMth [address] [place] [address] 06-12-2025 13:44-0400Respiratory rate18 /minMth [address] [place] [address] 06-12-2025 13:44-0400Systolic blood meywnueq638 mm[Hg][facility]09-05-2025 09:12-0400Heart rate86 /Rose Jhaveri MD Work Phone: [facility]09-05-2025 09:12-0400 Respiratory rate16 /Rose Jhaveri MD Work Phone: [facility]09-05-2025 09:12-8110WwW6% (BldA) [Mass fraction]94 %Inder Jhaveri MD Work Phone: [phone]09-05-2025 06:47-0400Body ynmbciumwwr48.91 [degF]Inder Jhaveri MD Work Phone: [facility] Tvbgbp81-84-9968 06:47-0400Diastolic blood btrksytx01 mm[Hg]Inder Jhaveri MD Work Phone: [facility]09-05-2025 06:47-0400Systolic blood afvhrcnm995 mm[Hg]Inder Jhaveri MD Work Phone: [facility]09-05-2025 05:26-0400Body .6 Christel Jhaveri MD Work Phone: [facility] Golujt87-97-0136 05:15-0400Body mass index (BMI) [Ratio]38.14 kg/p2RasyghiqdInder Jhaveri MD Work Phone: [facility] Rbxtcb31-34-6415 05:15-0400Body udvoov437.19 kgInder Jhaveri MD Work Phone: [facility] Wjbktz41-69-6097 13:25-0400Body tnhxeygewyd82.59 [degF][facility]08-28-2025 13:25-0400 Diastolic blood gdmpaitp66 mm[Hg][facility] Dxudfa12-58-2983 13:25-0400Heart rate81 /minMth 03Bon [facility] HospitalZolobg64-93-8951 13:25-0400 Respiratory rate18 /minMth 03Bon Seckrystal White HospitalVbyjjw16-32-7535 13:25-0400 Systolic blood sfmvygxa815 mm[Hg][facility] 03Bon Seckrystal White HospitalSzhjmz07-40-4187 14:23-0400Body praousedurw64.49 [degF][facility] 03Bon Seckrystal White HospitalYgbssc60-03-8696 14:23-0400Diastolic blood ofvgkxmy83 mm[Hg][facility] 03Bon [facility] 05-16-2025 14:23-0400Heart igkz741 /minMth 03Bon Seckrystal White HospitalAuczgy47-39-1997 14:23-0400Respiratory rate20 /minMth 03Bon [facility] Hospitalkrystal White HospitalAtlzex35-67-0790 14:23-0400Systolic blood arzcgrjb687 mm[Hg][facility] 03Bon [facility] 05-09-2025 14:20-0400Body tmbqjgwboep26.59 [degF][facility] 03Bon [facility] 05-09-2025 14:20-0400Diastolic blood yzwanisa76 mm[Hg][facility] 03Bon [facility]08-14-2025 14:20-0400Heart rate94 /minMth 03Bon [facility] 05-09-2025 14:20-0400Respiratory rate18 /minMth 03Bon [facility] 05-09-2025 14:20-0400Systolic blood otxqbkvj737 mm[Hg][facility] 03Bon [facility]08-07-2025 14:35-0400Body kizpmaovjox42.9 [degF][facility] 03Bon [facility]08-07-2025 14:35-0400Diastolic blood rzokdpyv30 mm[Hg][facility] 03Bon [facility]08-07-2025 14:35-0400Heart rate84 /minMth 03Bon [facility] [place] 05-02-2025 14:35-0400Respiratory rate18 /minMth 03Bon [facility] [place] 05-02-2025 14:35-0400Systolic blood ailestuu950 mm[Hg][facility] 03Bon [facility]08-04-2025 13:03-0400Body qbkqzyqbuzb44.81 [degF][facility] 03Bon [facility]alkrystal [facility] HospitalYonhok23-72-9782 13:03-0400Diastolic blood fkzsinmi24 mm[Hg]Mth 03Bon [facility]08-04-2025 13:03-0400Heart rate80 /minMth 03Bon [facility] 04-29-2025 13:03-0400Respiratory rate20 /minMth 03Bon [facility] 04-29-2025 13:03-0400Systolic blood ymnohmsm947 mm[Hg][facility] 03Bon [facility]07-31-2025 15:05-0400Body xublvqcgkvc77.11 [degF][facility] 03Bon [facility]07-31-2025 15:05-0400Diastolic blood klpbtusz15 mm[Hg][facility] 03Bon [facility]07-31-2025 15:05-0400Heart rate93 /minMth 03Bon [facility] 04-25-2025 15:05-0400Respiratory rate18 /minMth 03Bon [facility] 04-25-2025 15:05-0400Systolic blood mm[Hg][facility] 03Bon [facility]07-28-2025 15:13-0400Body oyzhqanhkjc51.91 [degF][facility] 03Bon [facility]07-28-2025 15:13-0400Diastolic blood guvgxhsc21 mm[Hg][facility] 03Bon [facility]07-28-2025 15:13-0400Heart rate88 /minMth 03Bon [facility] 04-22-2025 15:13-0400Respiratory rate18 /minMth 03Bon [facility] 04-22-2025 15:13-0400Systolic blood mm[Hg][facility] 03Bon [facility]07-24-2025 14:59-0400Body jfjyxdyjirh55.01 [degF][facility] 03Bon [facility]07-24-2025 14:59-0400Diastolic blood xkryeayo90 mm[Hg][facility] 03Bon [facility]07-24-2025 14:59-0400Heart rate90 /minMth 03Bon [facility] 04-18-2025 14:59-0400Respiratory rate16 /minMth 03Bon [facility] 04-18-2025 14:59-0400Systolic blood tekbvgpt565 mm[Hg][facility] 03Bon [facility]07-21-2025 15:02-0400Body ovoqcogtdkh64.49 [degF][facility] 03Bon [facility]07-21-2025 15:02-0400Diastolic blood ckovsqsi61 mm[Hg][facility] 03Bon [facility]07-21-2025 15:02-0400Heart rate95 /minMth 03[facility] 04-15-2025 15:02-0400Respiratory rate18 /minMth 03Bon [facility] 04-15-2025 15:02-0400Systolic blood ugkdthjc563 mm[Hg][facility] 03[facility]07-17-2025 14:45-0400Body lmtekqaajam60 [degF][facility] 03Bon [facility]07-17-2025 14:45-0400Diastolic blood dqigsyux89 mm[Hg][facility] 03[facility]07-17-2025 14:45-0400Heart rate87 /minMth 03[facility] 04-11-2025 14:45-0400Respiratory rate18 /minMth 03[facility] 04-11-2025 14:45-0400Systolic blood mm[Hg][facility] 03[facility]12-21-2024 16:13-0500Body hhzrtgyimdl64.2 [degF]Meera Mike DPM Work Phone: [facility]12-21-2024 16:13-0500Diastolic blood qrvefuqr12 mm[Hg]Meera Mike DPM Work Phone: [facility]12-21-2024 16:13-0500Heart rate87 /minMeera Mike DPM Work Phone: [facility]12-21-2024 16:13-0500 Respiratory rate16 /minMeera Mike DPM Work Phone: [facility]12-21-2024 16:13-2066SwI5% (BldA) [Mass fraction]92 %Meera Mike DPM Work Phone: [facility]12-21-2024 16:13-0500Systolic blood rruqqbpe081 mm[Hg]Meera Mike DPM Work Phone: [facility]12-20-2024 06:26-0500Body dlpicl250.6 cmMeera Mike DPM Work Phone: [facility]12-20-2024 06:26-0500Body mass index (BMI) [Ratio]34.72 kg/o9WmbcfMeera Mike DPM Work Phone: [facility]12-20-2024 06:26-0500Body xijhgb54.52 kgMeera Mike DPM Work Phone: [facility]12-13-2024 13:04-0500Body .6 cmMeera Mike DPM Work Phone: [facility]12-13-2024 13:04-0500Body mass index (BMI) [Ratio]34.7 kg/s1HciciMeera Mike DPM Work Phone: [facility]12-13-2024 13:04-0500Body ckyolyvifob58.61 [degF]Meera Mike DPM Work Phone: [facility]12-13-2024 13:04-0500Body botshp36.52 kgMeera Mike DPM Work Phone: [facility]12-13-2024 13:04-0500Diastolic blood cebgaoil96 mm[Hg]Meera Mike DPM Work Phone: [facility]12-13-2024 13:04-0500Heart rate94 /minMeera Mike DPM Work Phone: [facility]12-13-2024 13:04-0500 Respiratory rate18 /minMeera Mike DPM Work Phone: [facility]12-13-2024 13:04-0910CbO2% (BldA) [Mass fraction]96 %Meera Mike DPM Work Phone: [facility]12-13-2024 13:04-0500Systolic blood dkrmdaej104 mm[Hg]Meera Mike DPM Work Phone: [facility]10-31-2024 16:00-0400 Respiratory rate14 /minMeera Mike DPM Work Phone: [facility]10-31-2024 07:07-0400Body vmcjjkblyav26.7 [degF]Meera Mike DPM Work Phone: [facility]10-31-2024 07:07-0400Diastolic blood ctqtkgye19 mm[Hg]Meera Mike DPM Work Phone: [facility]10-31-2024 07:07-0400Heart rate92 /minMeera Mike DPM Work Phone: [facility]10-31-2024 07:07-4442EdE5% (BldA) [Mass fraction]91 %Meera Mike DPM Work Phone: [facility]10-31-2024 07:07-0400Systolic blood aotbavcz220 mm[Hg]Meera Mike DPM Work Phone: [facility]10-28-2024 12:23-0400Body whekmj012.6 cmMeera Mike DPM Work Phone: [facility]10-28-2024 12:23-0400Body mass index (BMI) [Ratio]34.4 kg/e6RctjzMeera Mike DPM Work Phone: [facility]10-28-2024 12:23-0400Body iffnzh16.62 kgMeera Mike DPM Work Phone: [facility]10-23-2024 14:54-0400Body tenvgg932.[address] [place], [place] 4532010-23-2024 14:54-0400Body mass index (BMI) [Ratio]34.38 kg/m2Stcz [address] [place], [place] 4532010-23-2024 14:54-0400Body macvxfavpmr86.7 [degF]St[address] [place], [place] 4532010-23-2024 14:54-0400Body caewcd34.[address] [place], [place] 4532010-23-2024 14:54-0400Diastolic blood rusjyqev80 mm[Hg][address] [place], [place] 4532010-23-2024 14:54-0400Heart rate 83 /minStcz [address] [place], [place] 4532010-23-2024 14:54-0400Respiratory rate20 /minStcz [address] [place], [place] 4532010-23-2024 14:54-6761ZpH4% (BldA) [Mass fraction]93 %St[address] [place], [place] 4532010-23-2024 14:54-0400Systolic blood bwguerxt570 mm[Hg][address] [place], [place] 4532010-19-2024 00:54-2342EaM4% (BldA) [Mass fraction]94 %Stacy Awan MD Work Phone: [facility]10-18-2024 23:46-0400Body yxffvkbtocz82.01 [degF]Stacy Awan MD Work Phone: [facility]10-18-2024 23:46-0400Diastolic blood mm[Hg]Stacy Awan MD Work Phone: [facility]10-18-2024 23:46-0400Heart rate92 /Bogdan Awan MD Work Phone: Bon [email or web address] 23:46-0400 Respiratory rate16 /minConevaeh Awan MD Work Phone: [facility] [email or web address] 23:46-0400Systolic blood rcjefjnz966 mm[Hg]Stacy Awan MD Work Phone: [facility] [email or web address]10-18-2024 20:26-0400Diastolic blood lboitsxw911 mm[Hg]Karime Ken DO Work Phone: [facility] [email or web address] 20:26-1535AjG4% (BldA) [Mass fraction]94 %Karime Ken DO Work Phone: [facility] [email or web address] 20:26-0400Systolic blood ffnmgzli727 mm[Hg]Karime Ken DO Work Phone: [facility] [email or web address] 13:43-0400Body cyqrbkthtrc13.3 [degF]Karime Ken DO Work Phone: [facility] [email or web address] 13:43-0400Heart rate97 /minJaveria Ken DO Work Phone: [facility] [email or web address] 13:43-0400 Respiratory rate16 /minJaveria Ken DO Work Phone: [facility] [email or web address] 20:45-0400Diastolic blood dyraajaq39 mm[Hg]Vivian Might WILDLIFE 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 Work Phone: [facility]09-21-2023 20:45-0400Heart rate88 /minBrett Might WILDLIFE 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 Work Phone: [facility]09-21-2023 20:45-0400 Respiratory rate16 /minBrett Might WILDLIFE 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 Work Phone: [facility]09-21-2023 20:45-3655XaR2% (BldA) [Mass fraction]97 %Vivian Bullard CNP Work Phone: [facility]09-21-2023 20:45-0400Systolic blood udbinykx374 mm[Hg]Vivian Might WILDLIFE 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 Work Phone: [facility]09-21-2023 17:32-0400Body xgzrobkbzaf80 [degF]Vivian Might JOSSE Bullard [employer]PER[employer] Work Phone: [facility]09-19-2023 11:31-0400 Respiratory rate18 /minSjoaquin Segundo [facility]09-19-2023 07:34-0400 SaO2% (BldA) [Mass fraction]95 %Emiliano Segundo [facility]09-19-2023 06:45-0400Body feuncjtndru84.59 [degF]Emiliano Segundo [facility] 06-14-2023 06:45-0400Diastolic blood mm[Hg]Emiliano Segundo [facility]09-19-2023 06:45-0400Heart rate74 /minSjoaquin Segundo [facility]09-19-2023 06:45-0400Systolic blood mm[Hg]Emiliano Segundo [facility]09-19-2023 05:00-0400Body mass index (BMI) [Ratio]33.88 kg/m2Emiliano Segundo [facility]09-19-2023 05:00-0400Body wfyrob53.21 kg Emiliano Segundo [facility]09-18-2023 10:06-0400Body aidzcg864.6 cmSjoaquin Segundo [facility]04-26-2023 20:55-0400Body ijfveg501.6 cmMthz [facility]04-26-2023 20:55-0400Body mass index (BMI) [Ratio]33.89 kg/m2Mthz [address] [place], [place] 6843004-26-2023 20:55-0400Body .[address] [place], [place] 6843003-15-2023 14:15-0400Diastolic blood hdfxbhvu22 mm[Hg] Tari Curtis MD Work Phone: [facility]03-15-2023 14:15-0400Heart rate88 /minTari Curtis MD Work Phone: [facility]03-15-2023 14:15-0400 Respiratory rate16 /minTari Curtis MD Work Phone: [facility]03-15-2023 14:15-5657KmQ1% (BldA) [Mass fraction]95 %Tari Curtis MD Work Phone: [facility]03-15-2023 14:15-0400Systolic blood tetjrmii307 mm[Hg]Tari Curtis MD Work Phone: [facility]03-15-2023 13:48-0400Body olaegbiwjok73.1 [degF]Tari Curtis MD Work Phone: [facility]03-15-2023 12:16-0400Body mass index (BMI) [Ratio]33.99 kg/x2AlwvxqTari Curtis MD Work Phone: [facility]03-15-2023 12:16-0400Body jagxdk78.53 kgTari Curtis MD Work Phone: [facility]03-02-2023 16:01-0500Body btyqvi888.6 cmVarash Curtis MD Work Phone: [facility]12-13-2022 12:20-0500Body .64 cmShiraz Sherman Other [facility] [employer] Other 11-11-2022 18:00-0500Body riwkrsmzkzc01.1 [degF]Vivian Might WILDLIFE 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 Work Phone: [facility] HOSPITALJEZGDA84-48-2612 18:00-0500Diastolic blood hfnpiesv86 mm[Hg]Vivian Might WILDLIFE 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 Work Phone: [facility] Zalando11-11-2022 18:00-0500Heart rate99 /minBrett Might WILDLIFE BIOLOGY TECHNICIAN [employer] Work Phone: [facility] [employer] [facility] REHABILITATIONThinkorswim [id number] 18:00-0500 Respiratory rate18 /minBrett Might WILDLIFE BIOLOGY TECHNICIAN [employer] Work Phone: [facility] [employer] [facility] [id number] 18:00-5612IeM7% (BldA) [Mass fraction]94 %Vivian Might WILDLIFE BIOLOGY TECHNICIAN [employer] Work Phone: [facility] Zalando11-11-2022 18:00-0500Systolic blood yvunmvcm873 mm[Hg]Vivian Might WILDLIFE BIOLOGY TECHNICIAN [employer] Work Phone: [facility] [employer] [facility]ABILITATIONThinkorswim [id number] 13:59-0500Body .6 cmBrett Might WILDLIFE BIOLOGY TECHNICIAN [employer] Work Phone: [facility] [employer] [facility]ABILITATIONThinkorswim [id number] 13:59-0500Body mass index (BMI) [Ratio]34.7 kg/m2Wwuik Might WILDLIFE BIOLOGY TECHNICIAN [employer] Work Phone: [facility] Z[place]11-11-2022 13:59-0500Body dsrsra76.52 kgBrett Might WILDLIFE BIOLOGY TECHNICIAN [employer] Work Phone: [facility] Zalando04-27-2021 14:45-0400Diastolic blood mm[Hg][facility] LigandalWayne HospitalPerfectus Biomed Work Phone: 1(420) 392-514504-27-2021 14:45-0400Heart rate94 /minMt [employer] Work Phone: 1(327) [phone] 14:45-0400Respiratory rate14 /minMt LigandalWayne HospitalPerfectus Biomed Work Phone: 1(770) 171-379404-27-2021 14:45-3117ZpN2% (BldA) [Mass fraction]95 % [facility] LigandalWayne HospitalPerfectus Biomed Work Phone: 1(269) 747-483604-27-2021 14:45-0400Systolic blood qpxdxdgy918 mm[Hg] [facility] [employer] Work Phone: 1(311) 493-252704-27-2021 11:44-0400Body lopahx212.6 cmN[facility] [employer] Work Phone: 1(140) 745-467604-27-2021 11:44-0400Body mass index (BMI) [Ratio] 30.67 kg/m2[facility] [employer] Work Phone: 1([phone]) 229-552004-27-2021 11:44-0400Body iwjjbsuclaz54.39 [degF][facility] [employer] Work Phone: 1(120) 360-350804-27-2021 11:44-0400Body ocivkj01.18 kgN[facility] [employer] Phone: Encounters Encounter DateEncounter TypeCare ProviderFacilityStart: 89-01-0380tumqytnixcHhe D Salyer WILDLIFE BIOLOGY TECHNICIAN-CNPFacility:[facility] CtrStart: 25-41-3521cdnnmzgugqtaryn Lemos WILDLIFE BIOLOGY TECHNICIAN-CNPFacility:ENT SpecStart: 08-05-2025 End: 40-88-8080ivyvnpaevuOaeedz Lee Mascaro PA-CFacility:ENT SpecStart: 08-02-2025 End: 14-35-5738xavufrqrzqXKMDXBZLuis A Olivier [facility] HospitalStart: 08-02-2025 End: 79-84-2347Fksybdhcml hospital visit by [facility] Op [facility] 03[facility] ([facility])Start: 07-29-2025 End: 31-88-6766grqtqkltchUXMAQBDhiraj Brown HospitalStart: 07-29-2025 End: 78-14-6288Yoqppkwnis hospital visit by Yarely Dominique MD Work Phone: [facility] HospitalTrakTek 3D MRIComment on above:Acute pain of right shoulderAcute pain of left shoulderStart: 07-25-2025 End: 58-02-7982gnvymalwxuRXXAUXAHolland Brown HospitalStart: 07-25-2025 End: 73-25-9986Zwkxgfhaha hospital visit by physicianN[facility] Op Treatment 03[facility] Special[facility] (MOB)Start: 07-23-2025 End: 94-79-8210rhmsffllsbEDJNGWShalom Blandon Hannah HospitalStart: 07-23-2025 End: 10-27-5097Xgdffnaifi hospital visit by Leah Everett MD Work Phone: [facility] ORStart: 07-18-2025 End: 80-40-8617irazfvkzdmVEKLDRaquel Brewer [facility] Respiratory Hospitaltart: 07-17-2025 End: 98-58-0124xbdviggourUVTTEA [facility] HospitalStart: 07-17-2025 End: 16-42-6459Kecrjpgaoh hospital visit by physicianN[facility] [address] [place] [address] CT ScanComment on above:Chronic nasal congestion; Chronic allergic rhinitis; Chronic sinus complaintsStart: 07-17-2025 End: 22-42-6509yvdmjyolojLRZMFBUHolland Olivier [facility] HospitalStart: 07-17-2025 End: 59-60-4641Nqaucusmin hospital visit by physicianN[facility] Op Treatment 03[facility] ([facility])Start: 07-11-2025 End: 14-22-4207ejvubongssRAIYTAW S JANETMerleyda [facility] HospitalStart: 07-11-2025 End: 16-92-1619Graxnbkmej hospital visit by physicianN[facility] Op Treatment 03[facility] (MOB)Start: 06-27-2025 End: 51-49-2630jjynicqddqBILDYElle Reed [facility] HospitalStart: 06-27-2025 End: 78-99-7815umhsxrqyvsPFEQIRaquel Brewer [facility] HospitalStart: 06-24-2025 End: 00-81-2888cugmujekuqXFE [facility] Work Phone: Start: 06-24-2025 End: 28-48-7450Xgcqpxt encounter procedureEagle Noe DO-[facility] Keiko Work Phone: Start: 06-19-2025 End: 57-64-9254rtzfdsehnoDUWUPHZ S SAFADIMerleyda Solsberry HospitalStart: 06-19-2025 End: 61-07-2892Bovjarhuvt hospital visit by physicianN[facility] Op Treatment [address] [facility] ([facility]Start: 06-14-2025 End: 79-55-4721qygjxklhkbEUPAustin Bennett [facility] HospitalStart: 06-14-2025 End: 15-27-9687Vbhnpuaolp hospital visit by Carmen Ardon MD Work Phone: [facility] LABComment on above:BAILEE (acute kidney injury); Decreased renal functionLightheaded; Dizziness; Elevated CK; History of syncope; Essential hypertension; Tobacco abuse; Mixed hyperlipidemia; SOB (shortness of breath)Start: 06-12-2025 End: 10-56-1462saalkfkscjMTYQKET S Charline Brown HospitalStart: 06-12-2025 End: 36-15-4368Zuzoyutqvb hospital visit by Critical access hospital Op Treatment [address] Specialty [facility] ([facility])Start: 06-10-2025 End: 23-54-5959aaaysyexkqFjpwaj Lee Mascaro PA-CFacility:ENT SpecStart: 06-04-2025 End: 47-28-1586pipaffwmixYKNWEVW S [facility] HospitalStart: 05-29-2025 End: 84-28-4830Slagewjtte and management of inpatientChristian Dee Jhaveri MD Work Phone: mthz [facility] MED SURGComment on above:BAILEE (acute kidney injury) (Primary Dx); Lightheaded; Heart murmurStart: 05-29-2025 End: 85-01-0392qzzxyjkemaFNHGFBN S JANETMerleyda Brown HospitalStart: 05-29-2025 End: 65-74-3019Wuotxzbhud hospital visit by Shirley HARE Physical TherapyComment on above:ArrivedStart: 05-24-2025 End: 13-96-4046bipmzopmcrBZMMI A WILKINSONJanette Mengfin HospitalStart: 05-24-2025 End: 72-69-9649Ojjbliohmo hospital visit by Shirley HARE Physical TherapyComment on above:ArrivedStart: 05-23-2025 End: 25-78-8381owivmjdrohVTCSWCEHolland Brown HospitalStart: 05-23-2025 End: 95-76-4634Yabplketob hospital visit by Ctlaura Laboratory Schedule [facility] CELEUNIVERSITY [facility] LABComment on above:History of syncope; Essential hypertension; Tobacco abuse; Mixed hyperlipidemia; SOB (shortness of breath); Bilateral leg edemaStart: 05-23-2025 End: 08-07-8323quhfgnmlyfBEGTXDQHolland Brown HospitalStart: 05-23-2025 End: 45-13-3301Vcrajxaxsj hospital visit by [facility] ([facility])Start: 05-20-2025 End: 66-42-6650mgehnjnndxYHYPB Agueda Maren [facility]Start: 05-20[facility]2025 End: 04-36-0070Mjylcafvjd hospital visit by Elizabet Rich [facility] Physical TherapyComment on above:ArrivedStart: 05-16-2025 End: 19-12-0413swifidhfszVJXAKXPHolland Brown HospitalStart: 05-16-2025 End: 55-83-6494Geoolgsktd hospital visit by Elizabet Rich [facility] Physical TherapyComment on above:ArrivedStart: 05-13-2025 End: 34-01-9190Qasavthcas hospital visit by Shirley Nam PTMTHZ Physical TherapyStart: 05-10-2025 End: 33-93-1802ygosfithnnYBHCEReese Engel [facility] HospitalStart: 05-10-2025 End: 89-76-1204Kcyecpaczb hospital visit by Elizabet Rich [facility] Physical TherapyComment on above:ArrivedStart: 05-09-2025 End: 80-15-7577ejsvlowrolQLZPPReese Brown HospitalStart: 05-09-2025 End: 02-96-4037Deskgelgkf hospital visit by [facility] Op [facility] 03[facility] Specialty Clinic (MOB)Comment on above:ArrivedStart: 05-02-2025 End: 22-99-1938ioqbhflvkgREBFVReese Engel [facility] HospitalStart: 05-02-2025 End: 01-41-6024Wryoviqlig hospital visit by [facility] Op [facility] 03[facility] Specialty Clinic (MOB)Comment on above:Closed dislocation of tarsal joint of left foot, initial encounterStart: 04-30-2025 End: 87-97-4491xaqsbjgiwtHraNataliya Sim APRN-CNPFacility:[facility] Start: 04-30-2025 End: 93-87-1257jfgpmmgeafTUIVG A BONNIEJamel Brown HospitalStart: 04-30-2025 End: 69-59-0028Vtvllhreqh hospital visit by Shirley TRUONGSusan Physical TherapyComment on above:ArrivedStart: 04-29-2025 End: 54-19-4609uanvpbcmdbRQHKJCY Cheo Brown HospitalStart: 04-29-2025 End: 27-45-9652Sfqvjilcwo hospital visit by [facility] Op Treatment 03[facility] Specialty Clinic (MOB)Comment on above:ArrivedStart: 04-25-2025 End: 25-66-0326ohiayffycbSPENataliya [facility] HospitalStart: 04-25-2025 End: 40-60-0561xxqmakcbgeOCJIN A BONNIEJamel Brown HospitalStart: 04-25-2025 End: 06-32-4898Qrduampxml hospital visit by [facility] Op Treatment 03[facility] Specialty Clinic (MOB)Comment on above:ArrivedStart: 04-22-2025 End: 92-96-7111rsxuotpmeuQLEZSSO S Charline Brown HospitalStart: 04-22-2025 End: 65-95-9771Ymhgjagtgv hospital visit by [facility] Op Treatment 03[facility] Specialty Clinic (MOB)Comment on above:ArrivedStart: 04-18-2025 End: 29-47-5753rqfglhqzhjTOMMQOD Choe NICKArabella Brown HospitalStart: 04-18-2025 End: 47-30-4923Hsymqhxrla hospital visit by [facility] Op Treatment 03[facility] Specialty Clinic (MOB)Start: 04-18-2025 End: 54-60-9385mqtrqxjeduQWPQK Agueda WILKINSONWood County Hospital HospitalStart: 04-18-2025 End: 41-32-0960Pjcwqqhkkn hospital visit by Shirley Nam [facility] Physical TherapyComment on above:ArrivedStart: 04-15-2025 End: 78-82-4763lszbvumbcdBCFHPXL S SAFADIWayne Hospitalleyda [facility] HospitalStart: 04-15-2025 End: 54-72-8378Ylhppvopci hospital visit by Tammy Escamilla [facility] Physical TherapyComment on above:ArrivedStart: 04-12-2025 End: 95-69-3445qahtjpmwcwPTBK ST. [facility] HOSPITALCHRISWayne Hospitalleyda [facility] HospitalStart: 04-12-2025 End: 95-18-3039Yqqjiquhoo hospital visit by [facility] MRIComment on above:Spinal stenosis, lumbar region with neurogenic claudicationStart: 04-11-2025 End: 18-75-9674xnmqlqqgroVABBHEK S SAFCOMPAWood County Hospital HospitalStart: 04-11-2025 End: 16-71-3829Canejtwtie hospital visit by Critical access hospital Op Treatment 03V[facility]Z Specialty Clinic (MOB)Comment on above:ArrivedStart: 04-08-2025 End: 61-39-2322elzprirkvrSVPJE Agueda MIKEWayne Hospitalleyda [facility]berry HospitalStart: 04-08-2025 End: 58-28-1388Eijgexyccz hospital visit by Tammy Escamilla [facility] Physical TherapyComment on above:ArrivedStart: 04-03-2025 End: 81-77-1023jwfsqoyxkrCGLAT Agueda MIKEWood County Hospital HospitalStart: 04-03-2025 End: 65-56-8407Vrgekwyqkc hospital visit by Rita OrogerVTHZ Physical TherapyComment on above:ArrivedStart: 04-01-2025 End: 56-66-2309mvftuoubhkFBPVT Agueda MIKEWayne Hospitalleyda [facility] HospitalStart: 04-01-2025 End: 34-95-4177Pqbqeicozt hospital visit by Shirley Nam PTMZ Physical TherapyComment on above:ArrivedStart: 02-25-2025 End: 99-66-7136fcdxirxqgcOcpzyufSosa Khancility:EDUARDA Aden Start: 01-29-2025 End: 01-01-3929Uxxpyvkhvd hospital visit by Shirley HARE Physical TherapyStart: 01-29-2025 End: 23-92-8152whuxngumhsRynjhRaquel GODINEZFacility:[facility] CtrStart: 01-25-2025 End: 66-58-3841dsrakpqahjPBZ SALWhite Hospital HospitalStart: 01-25-2025 End: 58-44-3702Zzuhygkgfr hospital visit by Oscar Bullard CNP Work Phone: [place] [address] LABStart: 01-24-2025 End: 34-76-3913Ejrflpbvyr hospital visit by Noe Chappell PTAMTHZ Physical TherapyStart: 82-49-0156xigckxsndqWGQTU A [facility]OSPITALMARISWood County Hospital HospitalStart: 01-22-2025 End: 40-88-3570Bxbfxiwakh hospital visit by Elizabet Rich [facility]Z Physical TherapyStart: 01-17-2025 End: 03-33-6768jsopgfeocvILBLR A ST[facility]OSPITALMARISWood County Hospital HospitalStart: 01-17-2025 End: 31-45-2499Cvywnmkugm hospital visit by Masood Lozoya [facility] Physical TherapyComment on above:ArrivedStart: 01-14-2025 End: 69-95-8889Phovsffwqf hospital visit by Masood Lozoya [facility] Physical TherapyStart: 01-10-2025 End: 02-65-4650uvlmkseaglDMIYR A [facility]OSPITALMARISWood County Hospital HospitalStart: 01-10-2025 End: 68-16-0407Dlmscqleny hospital visit by Elizabet Rich [facility] Physical TherapyComment on above:ArrivedStart: 01-08-2025 End: 31-45-3486xnhpwfgrjcHOVMY A ST[facility]OSPITALMARISWood County Hospital HospitalStart: 01-08-2025 End: 12-95-2713Altsiirgwg hospital visit by Elizabet Rich [facility] Physical TherapyComment on above:ArrivedStart: 01-03-2025 End: 59-30-7995hubfkzrxljFJRKY Agueda [facility] Hospitaltart: 01-02-2025 End: 15-72-6813xypwasoefhYHNOD Agueda Jaylynleyda [facility] HospitalStart: 01-02-2025 End: 56-01-8014Dhnqggbcsi hospital visit by Rita OrogerMTHZ Physical TherapyComment on above:ArrivedStart: 12-31-2024 End: 24-24-3091akbofvsqrqKRIET A Maren [facility] HospitalStart: 12-31-2024 End: 41-65-7131Btfqzztibh hospital visit by Noe Chappell PTAMTHZ Physical TherapyComment on above:ArrivedStart: 12-26-2024 End: 41-98-5551vzvykqqotvVJPKQ Agueda Maren [facility] HospitalStart: 12-26-2024 End: 67-93-1485Lepxhyxrdh hospital visit by Rita OrogerMTHZ Physical TherapyComment on above:ArrivedStart: 12-24-2024 End: 14-74-1346zncfwumylcRPCQQ Agueda Maren Mengfin HospitalStart: 12-24-2024 End: 82-47-8442Erotomhgwi hospital visit by Noe Chappell PTAMTHZ Physical TherapyComment on above:ArrivedStart: 12-19-2024 End: 07-69-3128yacfdftxnwDDVBLReese Mengfin HospitalStart: 12-19-2024 End: 84-10-5566Kpgcspzpnd hospital visit by Elizabet Rich PTAMTHZ Physical TherapyComment on above:ArrivedStart: 12-17-2024 End: 20-11-8562Jkxvvuezaf hospital visit by Noe Chappell PTAMTHZ Physical TherapyStart: 12-12-2024 End: 41-18-3391qyqkxdkvnpLHVTVReese Engel [facility] HospitalStart: 12-12-2024 End: 46-78-5393Ytgtnydpve hospital visit by Rita OrogerMTHZ Physical TherapyComment on above:ArrivedStart: 12-10-2024 End: 46-08-4751ylnrdjuhirSBMFKItalia Engel [facility] HospitalStart: 12-10-2024 End: 16-74-4430Rkmtmqjohi hospital visit by Tammy Escamilla PTAMTHZ Physical TherapyComment on above:ArrivedStart: 12-05-2024 End: 07-69-6485qjputgzfwyHFHAOeRese Engel [facility] HospitalStart: 12-05-2024 End: 63-87-8313Mvmohwookb hospital visit by Masood Lozoya PTAMTHZ Physical TherapyComment on above:ArrivedStart: 12-03-2024 End: 73-08-9050arvgsxxdumFXMSGItalia Engel [facility] HospitalStart: 12-03-2024 End: 28-11-0389Kunnpoqdac hospital visit by Masood Lozoya PTAMTHZ Physical TherapyComment on above:ArrivedStart: 11-29-2024 End: 46-09-3807Zbgtzgfqfr hospital visit by Noe Chappell PTAMTHZ Physical TherapyStart: 11-27-2024 End: 83-59-1045tsxmtgyjhzQGIFW Lauryn Brewer [facility] HospitalStart: 11-27-2024 End: 85-38-5969Crvlprqmmu hospital visit by Shirley Nam PTMTHZ Physical TherapyComment on above:ArrivedStart: 11-22-2024 End: 89-74-5648hhnhakcapyOCXLU A [facility] CenterStart: 61-37-8719dlxowlucdaPTKHK W ANA ROSAWayne Hospitalleyda [facility] HospitalStart: 10-25-2024 End: 52-64-7290knwnhnnjraHCWGT Agueda [facility] CenterStart: 10-23-2024 End: 86-75-7655ffnxfxpapcDrgwvGerard GODINEZFacility:[facility] CtrStart: 10-11-2024 End: 84-07-7029ejonypbgziDMC SALMarietta [facility] HospitalStart: 10-11-2024 End: 66-61-9456Qoemooorwc hospital visit by Oscar Bullard CNP Work Phone: mthz LaboratoryStart: 10-11-2024 End: 23-73-2495zipmuevvfqHHGPI A [facility] Hospitaltart: 09-27-2024 End: 11-75-4564ibtgomaajhIGWOFOhioHealth Grant Medical Centertart: 09-14-2024 End: 55-53-4840mmyfrjqvvnKWWQP A [facility] Centertart: 09-14-2024 End: 01-23-5948Uwrwdedbzz hospital visit by Marva Mike DPM Work Phone: stcz Med SurgComment on above:Post-op pain (Primary Dx); Charcot ankle, left; Diabetes (HCC)Start: 09-07-2024 End: 90-11-9347aelvkjitjeDLOVT A [facility] Centertart: 09-07-2024 End: 86-30-4146Xheoyrxtit hospital visit by Marva Mike DPM Work Phone: stcz Pre-Admit TestingStart: 08-31-2024 End: 42-01-0845tvocotekneNLLET A [facility] Hospitalt[facility]: 08-31-2024 End: 50-17-9316Limvomkeiq hospital visit by [facility] CT ScanComment on above:Closed dislocation of tarsal joint of left foot, initial encounter; Charcot's joint of foot, left; 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); Tobacco abuse; Left foot painStart: 07-23-2024 End: 80-07-7225Bkrknzymbp and management of Nickolas Mike DPM Work Phone: stcz Med SurgComment on above:Post-op pain (Primary Dx); Closed dislocation of tarsal joint of left foot, initial encounter; Charcot ankle, leftStart: 07-18-2024 End: 89-25-1636dsbyqxywrlQLCFADayton Children's Hospitaltart: 07-18-2024 End: 17-10-6231Tltzfldmyg hospital visit by Savage Ruth 3STCZ Pre-Admit TestingStart: 07-13-2024 End: 51-48-2084Ztbcphctq department patient visitConevaeh Awan MD Work Phone: [facility] EDComment on above:Lisfranc dislocation, left, initial encounter (Primary Dx)Start: 07-13-2024 End: 01-67-9840Jasqlbteg department patient visitJakerri Ken DO Work Phone: [facility] EDComment on above:Lisfranc dislocation, left, initial encounter (Primary Dx); Closed nondisplaced fracture of metatarsal bone of left foot, unspecified metatarsal, initial encounterStart: 07-02-2024 End: 07-73-0378Vozahnccsu hospital visit by Destini Duenas [facility] HospitalHZ LaboratoryComment on above:Recurrent pansinusitisRecurrent pansinusitis; Recurrent sinusitisStart: 06-08-2024 End: 00-44-4271Ikwrrfcasx hospital visit by Oscar Bullard CNP Work Phone: mthz LaboratoryStart: 05-22-2024 End: 85-67-6530Muzzksppfu hospital visit by Raffaele Sunshine [facility] Physical TherapyComment on above:ArrivedStart: 04-23-2024 End: 51-86-4696Hymuyidipt hospital visit by Rita MoraVTHZ Physical TherapyComment on above:ArrivedStart: 04-12-2024 End: 63-39-0418Tmetqidtpj hospital visit by Ashlee Hickman [facility] Physical TherapyStart: 03-01-2024 End: 10-50-9987Vhoykqfgjp hospital visit by Josué Rea [facility] Physical TherapyStart: 02-16-2024 End: 56-39-5288Gantomagzd hospital visit by Raffaele Sunshine [facility] Physical TherapyComment on above:ArrivedStart: 01-16-2024 End: 39-50-5343Lipgxtcbue hospital visit by Tammy Escamilla [facility] Physical TherapyStart: 12-07-2023 End: 82-28-5697Rbksceohux hospital visit by physicianOhioHealth RadiologyComment on above:Lower leg edemaStart: 06-16-2023 End: 32-75-9577Swcsmdtkz department patient visitVivian Bullard CNP Work Phone: [facility] EDComment on above:Syncope, unspecified syncope type (Primary Dx)Start: 06-10-2023 End: 33-08-3568Ijscuzkmov and management of inpatientSean Ray MDMZ [facility]ENTERU MED SURGComment on above:Recurrent syncope (Primary Dx); Pneumonia of both lower lobes due to infectious organismStart: 02-25-2023 ambulatoryNARENDRANATH LAKSHMIPATHY .Facility:R1Pornm: 02-08-2023 End: 83-31-5143beottnippaSOPCEWSISJIU LAKSHMIPATHY .Facility:B4Cbtwh: 01-27-2023 End: 32-45-5742bjadyefdgsXIBDQSWVJNPF LAKSHMIPATHY .Facility:K2Bkabi: 01-19-2023 End: 65-71-3649Xpegaambni hospital visit by physicianGen[facility] Hospital Brooklynn Rm 1MTHZ Sleep CenterComment on above:LAYNE (obstructive sleep apnea)Start: 01-11-2023 End: 11-89-6244gzxzeyjqxyTHLREFJXRBKB LAKSHMIPATHY .Facility:U1Flqbt: 12-30-2022 End: 78-48-0254kgkbltizrpVBBQLGZDDRYM LAKSHMIPATHY .Facility:S1Wsanu: 12-28-2022 End: 97-93-0611Nbjmuznuqq hospital visit by Critical access hospital Mri [facility] MRIComment on above:Thoracic neuritisStart: 12-08-2022 End: 91-94-1443Aznqhupgur hospital visit by Ny Curtis MD Work Phone: mthz ORComment on above:Screening for colon cancer Start: 11-30-2022 End: 79-55-9427bslkbxevnhTLNRNZOUZUOQ LAKSHMIPATHY .Facility:K1Rvkkv: 11-23-2022 End: 66-25-5359Prjzmyptaf hospital visit by physicianGen[facility] Hospital Sleep Rm 1MTHZ Sleep CenterComment on above:Tired; Fatigue, unspecified type; LAYNE (obstructive sleep apnea)Start: 11-17-2022 End: 97-53-5056Wthcbgfkru hospital visit by Critical access hospital Mri [facility] MRIComment on above:Lumbar radiculitisStart: 10-21-2022 End: 02-52-7781atxedxlvqzRA DOCTOR MISCFacility:X6Uznla: 10-08-2022 End: 35-12-3411Nrmkbmi encounter statusR[facility] EKGStart: 10-08-2022 End: 37-84-6345Sundxjceca hospital visit by Critical access hospital Epic [employer] Analyst [facility] EKG Comment on above:Syncope and collapse; Preop cardiovascular exam; Dizziness; Primary hypertension; Mixed hyperlipidemia; Tobacco abuse counselingStart: 43-89-5436Rdrzojeoq to same day surgery center [facility] OutPtStart: 10-04-2022 End: 72-10-6375niirtwffhbSZY STAFFFacility:[facility] Start: 10-01-2022 End: 78-78-0459Eihdqxpzei hospital visit by [facility] Tilt Table Study Room [facility] Stress LabComment on above:Canceled (Other)Start: 09-30-2022 End: 24-66-2190nbqaqpjjszEZU STAFFFacility:[facility] Start: 09-30-2022 End: 11-52-2347zlgemhfacqGFB [facility] Work Phone: Start: 09-30-2022 End: 85-96-4552Dpbzisu encounter [facility] Hfp-Jud-Dsrbwzho Testing Work Phone: Start: 09-29-2022 End: 61-88-2855Ragkmmvths hospital visit by [facility] Tilt Table Study Room [facility] Stress LabComment on above:Postural syncopeStart: 09-21-2022 End: 38-92-9413aontidewkeMFH STAFFFacility:[facility] Start: 09-21-2022 End: 91-29-7709oyjqlnjtqbWRD [facility] Work Phone: Start: 09-21-2022 End: 87-38-4274Znsgbwu encounter procedureSt. [facility] Work Phone: Start: 09-21-2022 End: 49-48-6423Hpgzkkebdi hospital visit by Oscar Bullard CNP Work Phone: mthz LaboratoryComment on above:Controlled type 2 diabetes mellitus with diabetic polyneuropathy, with long-term current use of insulin (HCC)Start: 09-14-2022 End: 17-70-4364ruzxtiezopZM DOCTOR MISCFacility:R6Ihhiw: 09-10-2022 End: 79-37-8931Valjxpnovz hospital visit by physicianTorri Covid Screening ScheduleC[facility] Covid ScreeningComment on above:ArrivedStart: 71-60-6683Ckjokj outpatient visit 40 [facility] NeurosurgeryStart: 09-07-2022 End: 56-90-1835jwlsyxftizQR DOCTOR [facility] [employer] Other start: 09-03-2022 End: 68-75-2074Hjofqizqbk hospital visit by physicianTorri Covid Screening ScheduleC[facility] Covid ScreeningComment on above:ArrivedStart: 08-26-2022 End: 25-61-3207adherojkhrHH DOCTOR MISCFacility:M8Wrsjq: 08-10-2022 End: 51-56-5677hqsarfqladWR JASPER Cheo YUMIKO .Facility:M1Meztd: 08-06-2022 End: 67-94-2796Gunegqbynm hospital visit by Shirley HARE Physical TherapyStart: 08-06-2022 End: 40-87-3782Bcedlnljr department patient visitVivian Bullard CNP Work Phone: [facility] EDComment on above:Rib pain on left side (Primary Dx)Start: 08-04-2022 End: 64-05-2919Pidkreifib hospital visit by [facility] Ultrasound [facility] UltrasoundComment on above:Colon cancer screening; Fatty liverStart: 08-02-2022 End: 84-52-2650Dqjpmpczea hospital visit by Shirley HARE Physical TherapyStart: 07-29-2022 End: 32-43-8541bfyuryvvtlEX JASPERJUDI [place] .Facility:G5Odkvb: 07-23-2022 End: 71-88-8131Xmeexhsfli hospital visit by Shirley Nam PTMTHSusan Physical TherapyStart: 07-19-2022 End: 99-61-0851Bqsxuzcskq hospital visit by Doreen Mccray PTAVTLAURA LaboratoryComment on above:Colon cancer screening; Fatty liverArrivedStart: 07-16-2022 End: 82-13-8931Rtukqqrijc hospital visit by Shirley Nam PTMTHSusan Physical TherapyComment on above:ArrivedStart: 07-13-2022 End: 36-41-8328Areykyyugv hospital visit by Doreen Mccray PTAVTLAURA Physical TherapyComment on above:ArrivedStart: 07-12-2022 End: 02-23-2797Dgilostfim hospital visit by Doreen Mccray PTAVTLAURA Physical TherapyComment on above:ArrivedStart: 07-08-2022 End: 78-25-8002Zpairjzytt hospital visit by Shirley Nam PTMTHSusan Physical TherapyComment on above:ArrivedStart: 07-07-2022 End: 95-65-3249Pflqelpwrh hospital visit by Lasha Beltran PTAVTHZ Physical TherapyComment on above:ArrivedStart: 07-05-2022 End: 39-95-1440Hcbxwzfwru hospital visit by Lasha Beltran PTAVTHZ Physical TherapyComment on above:ArrivedStart: 07-02-2022 End: 96-01-3068Izbzzuvxep hospital visit by Shirley Nam PTMSusan Physical TherapyComment on above:ArrivedStart: 06-30-2022 End: 45-36-3957Hjymmzdtom hospital visit by Lasha Beltran PTAVTHZ Physical TherapyComment on above:ArrivedStart: 06-28-2022 End: 10-18-3754Bmonfwvywl hospital visit by Lasha Beltran PTAVTHZ Physical TherapyComment on above:ArrivedStart: 06-24-2022 End: 45-89-7427Cuonvhanpi hospital visit by Shirley Nam [facility] Physical TherapyComment on above:ArrivedStart: 06-18-2022 End: 27-28-7065Vmrpmlhakr hospital visit by Lasha Beltran [facility]AC[facility] Physical TherapyComment on above:ArrivedStart: 06-16-2022 End: 41-57-8470Ycureuyufs hospital visit by Lasha [facility]tran [facility] Physical TherapyComment on above:ArrivedStart: 06-14-2022 End: 48-54-4612Pxosfzknmq hospital visit by Lasha Beltran PTACEN[facility] Physical TherapyComment on above:ArrivedStart: 06-11-2022 End: 42-98-4759Rzycmlelkn hospital visit by Shirley Nam [facility] Physical TherapyComment on above:ArrivedStart: 06-07-2022 End: 71-33-6036Lrykhowcyu hospital visit by Lahsa Beltran PTACEN[facility] Physical TherapyStart: 06-02-2022 End: 24-89-6314Tppktyrzln hospital visit by Lasha Beltran PTACEN[facility] Physical TherapyStart: 05-28-2022 End: 82-75-0187Pnltgoydjd hospital visit by Shirley Nam [facility] Physical TherapyComment on above:ArrivedStart: 05-27-2022 End: 53-76-9443Xzgsrsyzku hospital visit by Shirley Nam [facility] Physical TherapyComment on above:ArrivedStart: 05-25-2022 End: 41-03-8744Jmjaeclaoo hospital visit by Caitlin Garcia [facility] Physical TherapyComment on above:ArrivedStart: 05-18-2022 End: 23-09-7327Njyfpbkdob hospital visit by Shirley Nam [facility] Physical TherapyComment on above:ArrivedStart: 04-29-2022 End: 75-39-9444yzbqppwadnZX VIMAL S KUMAR .Facility:U5Ykhtg: 04-13-2022 End: 38-45-5017zgayiulkxtAB JASPER [place] .Facility:P6Wzffe: 04-09-2022 End: 66-67-6074Lokfavlgvw hospital visit by physicianTorri Covid Screening ScheduleMTHZ Covid ScreeningComment on above:ArrivedStart: 04-01-2022 End: 15-41-6377nfjgxzxgoeDDRC SOLIS .Facility:C3Cjljl: 03-31-2022 End: 89-25-9791Cvqcgnvhsa hospital visit by [facility] Vascular [facility] Vascular LabComment on above:Intermittent claudication (HCC) Start: 03-02-2022 End: 45-85-7205ktdprxbpjdJAN STAFFFacility:[facility] Start: 11-26-2021 End: 59-59-3015Lfzefkkuup hospital [facility] Covid Screening ScheduleC[facility] Covid ScreeningComment on above:ArrivedStart: 05-15-2021 End: 89-16-0480Bdyrzomfbq hospital visit by [facility] Mammography [facility] MammographyComment on above:Other screening mammogramStart: 96-12-7074djocfeeruoIFDFP [facility] Districttart: 03-11-2021 End: 21-76-8598Ysbytvdbhi hospital visit by Oscar Bullard CNP Work Phone: mthz LaboratoryComment on above:Abnormal LFTsStart: 03-04-2021 End: 03-09-7299Kzoskwaywr hospital visit by Critical access hospital Cardiology Stress Room [facility] Stress LabComment on above:ArrivedStart: 03-03-2021 End: 65-35-1903Hsokwcokyg hospital visit by physicianN[facility] Echo RoomCENTRAL [facility] EchocardiographyComment on above:Essential hypertension; Chest discomfort; Hyperlipidemia, unspecified hyperlipidemia type; Tobacco abuseArrivedStart: 02-09-2021 End: 96-08-0593Nneeqjbizn hospital visit by Oscar Bullard CNP Work Phone: mthz LaboratoryComment on above:HepatomegalyStart: 01-28-2021 End: 27-74-4197Igrvooewpt hospital visit by Oscar Bullard CNP Work Phone: mthz LaboratoryComment on above:Renal stones; Renal colicStart: 01-27-2021 End: 85-26-4954Zlumkcsguu hospital visit by [facility] Xr Dr Room [address] [place] [address] RadiologyComment on above:Renal stonesStart: 01-20-2021 End: 90-02-9834Ygajvwwpco hospital visit by Critical access hospital Cat Scan [facility] CT ScanComment on above:DDD (degenerative disc disease), lumbar Start: 09-30-2020 End: 84-16-1343Pynxfjcfhn hospital visit by Ctlaura Covid Screening ScheduleCEN[facility] Covid ScreeningComment on above:Preoperative testingStart: 08-13-2020 End: 53-39-5459Unxtbntsgt hospital visit by Oscar Lopez Laboratory Start: 07-25-2020 End: 03-93-5719Eommlwqciq hospital visit by Critical access hospital Cat [facility] ScanComment on above:Traumatic injury of head, initial encounter; Scalp tendernessStart: 07-08-2020 End: 24-19-7543Fqtnzottbt hospital visit by Ctluara Covid Screening ScheduleCEN[facility] Covid ScreeningComment on above:ArrivedStart: 01-25-2020 End: 83-47-6417Orsqurnhho hospital visit by Critical access hospital Xr Dr Room [address] [place] [address] RadiologyComment on above:Renal stonesStart: 12-28-2019 End: 28-74-9732Iwijtfamgt hospital visit by Oscar Lopez Laboratory Start: 10-18-2019 End: 82-25-1736Jfazdmnfqd hospital visit by Oscar Bullard CNP Work Phone: mthz LaboratoryComment on above:Right upper quadrant abdominal painStart: 10-03-2019 End: 85-28-6913Ayuzdoxpqv hospital visit by Oscar Bullard CNP Work Phone: mthz EKGStart: 08-22-2019 End: 25-07-8218Tqvbznzuzh hospital visit by [facility] Nuclear MedicineComment on above:ArrivedGeneralized abdominal pain Start: 08-16-2019 End: 77-23-8822Cxlhndmytr hospital visit by [facility] Nuclear MedicineComment on above:Generalized abdominal painStart: 08-03-2019 End: 07-03-9626Jmkzjomknp hospital visit by [facility] UltrasoundComment on above:ThyromegalyStart: 07-30-2019 End: 44-16-9372Lklgdetyfz hospital visit by Dest[facility] Cat Scan [facility] CT ScanComment on above:Abdominal pain, unspecified abdominal locationStart: 07-20-2019 End: 49-07-8140Hzdhizfcah hospital visit by [facility] Start: 07-13-2019 End: 93-70-5437Kkvlzaachn hospital visit by [facility] Comment on above:Diabetes mellitus type 2 with complications, uncontrolled (HCC) Start: 06-04-2019 End: 23-53-6369Eyaxrfwrma hospital visit by [facility] Comment on above:Diabetes mellitus type 2 with complications, uncontrolled (HCC) Procedures DateProcedureProcedure DetailPerforming ClinicianStart: 37-74-8453VDVMHOG, GIBRAN Everett MD Work Phone: Start: 59-60-0875MMRGERM, GIBRAN Everett MD Work Phone: Start: 08-44-6131Blpwb metabolic panel calcium total Vivian W Might 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 [employer] Work Phone: Start: 92-48-5981UJBLZJH, WHOLE BLOODEmanuel Danielle MD Work Phone: Start: 16-87-1150Eb retroperitoneal real time w/image completeAli Ehsan Ardon MD Work Phone: Start: 33-28-4208MDEYTQR, WHOLE BLOODEmanuel Danielle MD Work Phone: Start: 52-58-7566Dldjcm ecg 1-3 leads w/interpretation & reportUnknown Provider ResultStart: 53-82-9790YFOAJ METABOLIC PANEL W/ REFLEX TO MG FOR LOW KStefan Tristan MULLEN Work Phone: Start: 43-79-8661Socmnmof kinase totalAli Ehsan Ardon MD Work Phone: Start: 30-98-7570SPSKFEY, GIBRAN BLOODEmanuel Danielle MD Work Phone: Start: 30-64-8686WANGJVG, WHOLE BLOODEmanuel Danielle MD Work Phone: Start: 68-54-7473EEYCHMB, WHOLE BLOODEmanuel Danielle MD Work Phone: Start: 05-30-2025 End: 21-85-2938Jeaijh ecg 1-3 leads w/interpretation & reportUnknown Provider ResultStart: 24-89-1191Uzer tthrc r-t 2d w/wom-mode compl spec&colr dSttierney Danielle MD Work Phone: Start: 22-61-3075XVCMMMU, WHOLE BLOODEmanuel Danielle MD Work Phone: Start: 12-06-6844BAYGR METABOLIC PANEL W/ REFLEX TO MG FOR LOW KStefan Tristan MULLEN Work Phone: Start: 41-84-7734Wkjin count complete auto&auto difrntl wbcSttierney Danielle MD Work Phone: Start: 79-00-2204Klkgt of troponin quantitative Inder Jhaveri MD Work Phone: Start: 89-36-4217Kaihmcvvpjonr metabolic panel Inder Jhaveri MD Work Phone: Start: 58-36-4164Jldedihcuf exam chest 2 views Inder Jhaveri MD Work Phone: Start: 35-25-5042Flscl of thyroid stimulating hormone tshChkevin Jhaveri MD Work Phone: Start: 56-76-5387Hou routine ecg w/least 12 lds i&r onlyChkevin Jhaveri MD Work Phone: Start: 40-90-1062APEAS-19, RAPIDChkevin Jhaveri MD Work Phone: Start: 92-86-7698Rdogudytl influenzaChkevin Jhaveri MD Work Phone: Start: 06-88-6277Dnkom panelGénesis Stoner WILDLIFE 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 [employer] Work Phone: Start: 05-23-2025 End: 58-00-4470Nrhlsmcvcndsn metabolic panelGénesis Stoner WILDLIFE BIOLOGY TECHNICIAN - [facility] Work Phone: Start: 26-28-6842Gmtwtfmanz glycosylated a1cJay [place] Work Phone: Start: 90-25-6419Fsgknvxarm glycosylated a1cJay [place] Work Phone: Start: 58-53-2309Ldrsoyj blood reagent stripKhase A Mike DPM Work Phone: start: 38-48-3355Jlbmmya blood reagent stripMeenaase A Mike DPM Work Phone: start: 23-70-3582Uvgkx count complete auto&auto difrntl wbcUrbano Zarina Angelique DPM Work Phone: Start: 09-13-7165Lzgdvgp blood reagent stripKhase A Mike DPM Work Phone: start: 39-71-4422Bndrriq blood reagent stripKhase A Mike DPM Work Phone: start: 33-88-1539Tsjztsv blood reagent stripKhase A Mike DPM Work Phone: start: 72-23-1632Qowoprjbkc examination tibia & fibula 2 viewsQuintimbo Merino DPM Work Phone: Start: 67-83-8550Anjaslpxwfw during operationKhase A Mike DPM Work Phone: start: 09-14-2024 End: 90-79-9286Aaswazwlncv subtalarMeenaase A Mike DPM Work Phone: start: 09-14-2024 End: 91-52-7489Nehhcyv external fixation system under anesKhase A Mike DPM Work Phone: start: 09-14-2024 End: 70-81-4450Uiptlbz blood reagent stripKhase A Mike DPM Work Phone: start: 36-13-9384Kyboy metabolic panel calcium total Valerie Mg MD Work Phone: Start: 72-50-4711Zglsldd blood reagent stripKhase A Mike DPM Work Phone: Start: 94-99-3928Xbictjeo kinase totalLucas S Gus DPM Work Phone: Start: 32-72-4348PBPL/MYOGLOBINLucas S Gus DPM Work Phone: Start: 17-28-4282Hhbvmow blood reagent stripKhase A Mike DPM Work Phone: Start: 03-56-6032Qmpgdlm blood reagent stripKhase A Mike DPM Work Phone: Start: 18-42-3537Opfcdli blood reagent stripKhase A Mike DPM Work Phone: Start: 48-11-5064D-reactive proteinLucchelsie Weber DPM Work Phone: Start: 36-33-9844Ahuzvxz blood reagent stripKhase A Mike DPM Work Phone: Start: 79-45-2292Dzegkjz blood reagent stripKhase A Mike DPM Work Phone: Start: 29-24-7826Lwsazyf blood reagent stripKhase A Mike DPM Work Phone: Start: 55-27-5136Djafogtnaueqf metabolic panelBicheyanne Cleveland MD Work Phone: Start: 41-87-0276Tihpgyt blood reagent stripKhase A Mike DPM Work Phone: Start: 18-92-0994Kjmgoif blood reagent stripKhase A Mike DPM Work Phone: Start: 72-95-5953Txhaqdk blood reagent stripKhase A Mike DPM Work Phone: Start: 97-19-1102Jnnxhvg blood reagent stripKhase Agueda GoodwinMike DPM Work Phone: Start: 06-20-3996Udbrnsnqfp glycosylated n4yUpvdbchelsie Weber DPM Work Phone: Start: 89-04-7525Krgktvr blood reagent stripKhase Agueda Mike DPM Work Phone: Start: 58-52-8010Ndlunyc blood reagent stripKhase A Mike DPM Work Phone: Start: 07-23-2024 End: 01-42-5630Ffjafeisva examination tibia & fibula 2 viewsLucchelsie S Gus DPM Work Phone: Start: 54-98-3756Nyxrqly blood reagent stripKhase A Mike DPM Work Phone: Start: 77-77-4499Btxqqeywivq during operationKhase Agueda Mike DPM Work Phone: Start: 07-23-2024 End: 89-16-9327Xaccckujfsv uniplane external fixation systemMeenaase Agueda Mike DPM Work Phone: Start: 07-23-2024 End: 14-73-2087Sdb skel fixj metar fx w/manjKhase Agueda Mike DPM Work Phone: Start: 07-23-2024 End: 44-66-0963Phxvkifpb serum plasma/whole bloodPatricia Bethanie Chapa WILDLIFE 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 [employer] Work Phone: Start: 86-67-4016Vzczb metabolic panel calcium total Phil Pamela Herrera MD Work Phone: start: 86-14-0930Vbxdq foot complete minimum 3 views Zora Martinez DPM Work Phone: Start: 25-70-3584TWVYVFM, WHOLE BLOODJaveria J Ken DO Work Phone: Start: 91-97-9473Sj lower extremity w/o contrast materialJaveria J Ken DO Work Phone: Start: 41-39-7456Vokyd foot complete minimum 3 views Karime Ken DO Work Phone: Start: 89-40-5384Zhtos metabolic panel calcium total Vivian W Might WILDLIFE 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 [employer] Work Phone: Start: 05-80-0475Di maxillofacial w/o contrast materialBrett W Might WILDLIFE 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 [employer] Work Phone: Start: 59-11-9522Dmsbt of thyroid stimulating hormone tshRolan Sim Work Phone: Start: 12-53-2002Hmdjvdtpbv exam chest 2 viewsBrett W Might WILDLIFE 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 [employer] Work Phone: Start: 00-48-9628Bb head/brain w/o contrast material Vicki Finnegan PA-C Work Phone: Start: 25-67-7321Uppprdtgkzehm metabolic panelKelly Y Finnegan PA-C Work Phone: Start: 57-89-0221Iraexhjbak exam chest single view Vicki Conti Finnegan PA-C Work Phone: Start: 04-30-3278NAQRZRX, WHOLE BLOODEmanuel Danielle MD Work Phone: Start: 62-05-9091DTYUDCL, GIBRAN BLOODSttierney Danielel MD Work Phone: Start: 18-49-7062QPUBC METABOLIC PANEL W/ REFLEX TO MG FOR LOW KStefan Tristan MULLEN Work Phone: Start: 31-06-1518Ohpbr count complete auto&auto difrntl wbcSttierney Danielle MD Work Phone: Start: 86-36-3145PUYSKYX, WHOLE BLOODEmanuel Danielle MD Work Phone: Start: 22-24-9232CZIJLKM, WHOLE BLOODEmanuel Danielle MD Work Phone: Start: 86-81-1371PPUHMDG, GIBRAN BLOODEmanuel Danielle MD Work Phone: Start: 81-58-1579BGHXACA, WHOLE BLOODSttierney Danielle MD Work Phone: Start: 06-13-2023 End: 83-24-4046Lbylio ecg 1-3 leads w/interpretation & reportUnknown Provider ResultStart: 63-50-5446WRJXB METABOLIC PANEL W/ REFLEX TO MG FOR LOW KStefan Tristan MULLEN Work Phone: Start: 64-76-5105Yqnxp count complete auto&auto difrntl wbcEmanuel Danielle MD Work Phone: Start: 13-52-7228TPQTYVF, WHOLE BLOODSttierney Danielle MD Work Phone: Start: 91-83-1022CWBHIDQ, WHOLE BLOODSttierney Danielle MD Work Phone: Start: 37-24-3065UCNVYED, WHOLE BLOODSttierney Danielle MD Work Phone: Start: 93-26-7003MVXWMTR, WHOLE BLOODSttierney Danielle MD Work Phone: Start: 06-12-2023 End: 96-57-6347Jlulcj ecg 1-3 leads w/interpretation & reportUnknown Provider ResultStart: 49-49-0446ORDHO METABOLIC PANEL W/ REFLEX TO MG FOR LOW KSerikafan Tristan MULLEN Work Phone: Start: 09-88-5176Ootqp count complete auto&auto difrntl wbcEmanuel Danielle MD Work Phone: Start: 41-52-7235GVYCOPU, WHOLE BLOODSttierney Danielle MD Work Phone: Start: 75-98-8211CHZZXMV, WHOLE BLOODSttierney Danielle MD Work Phone: Start: 42-86-2444ZGKELSD, WHOLE BLOODStefsumaya Danielle MD Work Phone: Start: 29-00-8812QKJKGFM, WHOLE BLOODSttierney Danielle MD Work Phone: start: 53-80-5526RLKKKVT, WHOLE BLOODStefsumaya Danielle MD Work Phone: Start: 06-11-2023 End: 05-10-7861Ognsbz ecg 1-3 leads w/interpretation & reportUnknown Provider ResultStart: 21-96-9885XOWQI METABOLIC PANEL W/ REFLEX TO MG FOR LOW KSmackenzie Danielle MD Work Phone: Start: 41-93-4129Gsohmknvcdf peptideSmackenzie Danielle MD Work Phone: Start: 50-67-0308UICDRYI, SEPSISSean Ray MDStart: 84-18-8781Bxevvqisajreq (pct)Emanuel Danielle MD Work Phone: Start: 63-84-0977Uidohfy bacterial blood aerobic w/id isolatesSean Ray MDStart: 52-68-5482Flcut of troponin quantitativeSesumaya Segundo MD Start: 74-36-5284AAGOYUQ, BLOOD 1Sean Ray MDStart: 02-98-4108ACHMRNZ, SEPSISSean Ray MDStart: 70-93-5748In thorax w/contrast materialSean Ray MDStart: 01-01-9826Sxkkpxphkj exam chest 2 viewsSean Ray MDStart: 48-00-1076Xo cervical spine w/o contrast materialSean Ray MDStart: 61-35-7348Rp head/brain w/o contrast materialSean Ray MDStart: 76-14-7505ILDQK-19, RAPIDSean Ray MDStart: 35-56-9168Wvbntllqbrimc metabolic panelSean Ray MDStart: 02-87-7286Xie routine ecg w/least 12 lds i&r onlySean Ray MDStart: 31-04-7791Qtz spinal canal thoracic w/o contrast Warren Brady MD Work Phone: Start: 71-03-1546VCDQCYG, WHOLE BLOODTari Curtis MD Work Phone: Start: 12-08-2022 End: 34-98-3614CfjjqandjzpYwqogv N Chidi MD Work Phone: Start: 23-92-2995Hxi spinal canal lumbar w/o contrast materialJill C Gamez WILDLIFE BIOLOGY TECHNICIAN - DIRECTOR TRADING Work Phone: Start: 66-72-7668DNAZ Antigen (LFIA)Start: 09-29-2022 NM TILT TABLE TESTBrett W Might WILDLIFE 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 [employer] Work Phone: Start: 40-66-6777Ibmer albumin quantitativeBrett W Might WILDLIFE 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 [employer] Work Phone: Start: 76-48-1255Utkdh panelBrett W Might WILDLIFE 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 [employer] Work Phone: Start: 09-21-2022 End: 04-37-3703Zemkv metabolic panel calcium totalBrett W Might WILDLIFE 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 [employer] Work Phone: Start: 48-63-0348Cgxpf of troponin quantitativeYusef A Hammuda PA-C Work Phone: Start: 16-01-5023Zor routine ecg w/least 12 lds w/i&r Shan A Hammuda PA-C Work Phone: Start: 31-06-6175Wabjmkniyq exam chest single view Shan A Hammuda PA-C Work Phone: Start: 42-64-4185Eswyv metabolic panel calcium total Shan A Hammuda PA-C Work Phone: Start: 24-35-2202Goc routine ecg w/least 12 lds w/i&r Shan A Hammuda PA-C Work Phone: Start: 84-14-9360Mg abdominal real time w/image limitedTari Curtis MD Work Phone: Start: 83-75-7230ZugwyjdepotdqAgtpoz N Chidi MD Work Phone: Start: 08-33-2269Wsuvgnhyc b surf antibody hbsabTari Curtis MD Work Phone: Start: 06-90-4246Pjp-invasive physiologic study extremity 3 levlsVivian Combs [employer] Work Phone: Start: 69-90-7285Laqtegfzb mammography bi 2-view breast inc cadBredino Combs [employer] Work Phone: Start: 92-46-6745Mgidpbbwyvsjj metabolic panelJelexie Willett WILDLIFE BIOLOGY TECHNICIAN [employer] Work Phone: Start: 96-83-0007Abngfihhm b core antibody hbcab total Claudia Willett [employer] Work Phone: Start: 09-66-4080Yzvf ia hepatitis b surface antigen Claudia Willett WILDLIFE BIOLOGY TECHNICIANThinkspeed Work Phone: Start: 75-76-6159Zktwxir function panelVivian Combs [employer] [employer] Work Phone: Start: 85-62-7441Nsylt dip stick/tablet reagent auto microscopyBecristy Combs [employer] Work Phone: Start: 14-31-1178Xqudvleqbi exam abdomen 1 viewBecristy Combs [employer] Work Phone: Start: 92-73-7606Nq lumbar spine w/contrast material Jasper Cleveland MD Work Phone: Start: 39-06-0902Cithg panelRolan Sim Work Phone: Start: 53-02-4793Ms head/brain w/o contrast material Vivian W Calester Work Phone: Start: 75-81-6302Rouqbrmxjj exam abdomen 1 viewBecristy Combs [employer] Work Phone: Start: 19-21-9407Haeep of free thyroxineMichael S Zimmerman Work Phone: Start: 13-32-7065Aukii of gammaglobulin iga igd igg igm eachMichael S Zimmerman Work Phone: Start: 33-68-7944Uxckc of thyroid stimulating hormone tshMichael S Zimmerman Work Phone: Start: 41-01-9365Xcbwu of thyroxine totalMichael S Zimmerman Work Phone: Start: 41-73-9548Z-reactive proteinMichael S Zimmerman Work Phone: Start: 29-97-9915Qtwraesd kinase totalMichael S Zimmerman Work Phone: Start: 27-81-0965Yidyrikmqy glycosylated k8wCgkypqp S Zimmerman Work Phone: Start: 38-96-8373Acxlpxs dehydrogenase ldhMichael S Zimmerman Work Phone: Start: 47-81-5806Zofafinbkbmuj rate rbc automated Mario Alberto S Zimmerman Work Phone: Start: 13-88-2835Fw abdominal real time w/image limitedFlip Srinivasan Dea WILDLIFE BIOLOGY TECHNICIAN - [facility] Work Phone: Start: 13-61-0256Eavdv metabolic panel calcium total Flip Srinivasan Dea WILDLIFE BIOLOGY TECHNICIAN - [facility] Work Phone: Start: 80-64-5754Tpx routine ecg w/least 12 lds w/i&r Jasper Cleveland MD Work Phone: Start: 10-22-3954INZ REPORTHpf ScanningStart: 73-21-7471Tzvqcaf emptying imaging studyBrett W Might Work Phone: Start: 70-77-0615Kp soft tissue head & neck real time imge Samaria Olivera Work Phone: Start: 83-29-4647Dh abdomen & pelvis w/contrast materialCurtis Jean Work Phone: Start: 79-46-5674Dksyo of lipaseCurtis Jean Work Phone: Start: 25-29-3822Brewg count complete auto&auto difrntl wbcCurtis Jean Work Phone: Start: 04-80-4628Khlngispnfesb metabolic panelBrian B Baggott Work Phone: Start: 60-21-3409Kswxuurtff glycosylated i4sXvbgp B Baggott Work Phone: Start: 76-23-4123Ueurunx tolerance test gtt 3 specimensBrett W Might Work Phone: Start: 03-68-5500Vpojp metabolic panel calcium total Vivian W Might Work Phone: Start: 22-49-5674Jaeotlygxe glycosylated o4cVngft W Might Work Phone: Start: 86-48-7216Jozow panelBrett W Might Work Phone: Start: 85-31-3945Gitgymgkoea direct measurement ldl cholesterolBrett W Might Work Phone: Start: 65-94-7053Oirlqtmxfrd observation [Identifier] in Cervix by Cyto Rhiannon Nam PT Plan of Treatment DateCare ActivityDetailAuthorStart: 25-28-9914Bsnxurjncolv 0-64 years Vaccine (2 of 2 - PPSV23)Pneumococcal 0-64 years Vaccine (2 of 2 - PPSV23)[facility] Start: 84-29-1331Fmhvzacylysa 0-64 years Vaccine (2 of 2)Pneumococcal 0-64 years Vaccine (2 of 2)[facility] Work Phone: start: 38-56-5685Iavzqofua for malignant neoplasm of colonBON HONORHEALTH REHABILITATION HOSPITALAloricaStart: 13-27-6549YGP test (Diabetes, CKD 3-4, OR last GFR 15-59)GFR test (Diabetes, CKD 3-4, OR last GFR 15-59)[facility] [email or web address]: 04-82-7147WJVLD-19 Vaccine ( season)COVID-19 Vaccine ( season)[email or web address] on above:Postponed from 05/27/2025 (Patient Refused)Start: 37-59-9225Xchmxsblls MonitoringDepression MonitoringBon [facility] State HospitalViaziz ScamStart: 11-47-9059Rcuxlzzol B vaccine (1 of 3 - 19+ 3-dose series)Hepatitis B vaccine (1 of 3 - 19+ 3-dose series)[facility] on above:Postponed from 02/29/1992 (Patient Refused)Start: 41-59-6012TXM screeningHIV screenBon [facility] on above: Postponed from 02/29/1988 (Patient Refused)Start: 73-07-2012Qvirtjvj vaccine (2 of 2)Shingles vaccine (2 of 2)[facility] on above:Postponed from 05/20/2023 (Unavailable)Start: 60-32-5487OIG test (Diabetes, CKD 3-4, OR last GFR 15-59)GFR test (Diabetes, CKD 3-4, OR last GFR 15-59)[facility] Montgomeryart: 67-85-2661GOA test (Diabetes, CKD 3-4, OR last GFR 15-59)GFR test (Diabetes, CKD 3-4, OR last GFR 15-59)[facility] Montgomeryart: 05-23-2026 GFR test (Diabetes, CKD 3-4, OR last GFR 15-59)GFR test (Diabetes, CKD 3-4, OR last GFR 15-59)[facility] Montgomeryart: 25-00-3805Resia panelLipidsBon [facility] Hospitalart: 01-83-8200Fjhhy screening for proteinDiabetic Alb to Cr ratio (uACR) testBon [facility] on above:Postponed from 03/23/2025 (Not Indicated)Start: 72-80-0108Ceprhyrbbd MonitoringDepression MonitoringBon [facility] Hospitalart: 99-07-4224Orxkijnynf A1c lgqnomglrhnJ6I test (Diabetic or Prediabetic)[facility] Montgomeryart: 01-25-2026 Hemoglobin A1c bzbertjwrvlN4Y test (Diabetic or Prediabetic)[facility]: 42-55-6621Shiwkukohz MonitoringDepression MonitoringHealthSouth Medical Center: 47-59-3757Vhtaazijh for malignant neoplasm of colonInova Health Systemart: 12-05-2025 End: 61-17-8912Hochfvx encounter hojqozqna45/12/2026 2:00 PM EDT Office Visit [facility] Part of [address] [address] Nathan Ardon MD [address] [place] [phone] 6 month follwo [facility] CARDIOLOGY Part of [facility]ball HospitalComment on above:6 month follwo upStart: 08-07-3086Smyvjelgau MonitoringDepression MonitoringBon [facility] HealthStart: 73-38-8273JYtN/Tdap/Td vaccine (1 - Tdap)DTaP/Tdap/Td vaccine (1 - Tdap)Bon [facility] HealthComment on above:Postponed from 02/29/1992 (Patient Refused)Start: 99-94-1789Dtogyyronlyf 50+ years Vaccine (2 of 2 - PCV) Pneumococcal 50+ years Vaccine (2 of 2 - PCV)Bon Wilson HealthComment on above:Postponed from 05/10/2019 (Patient Refused)Start: 10-24-2025 End: 44-39-1140Mghbhqd encounter meyjfihcc43/29/2026 1:00 PM EST Office Visit [facility] Part of [address] [place] [phone] Preethi Garcia, WILDLIFE 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 [employer] [address] [place] [address] [address] [place], [place] [id number] 3M [facility] Part Day Kimball HospitalComment on above:3M KUB Start: 59-51-2645Kafpcvnole A1c msjpzihrxvmP9G test (Diabetic or Prediabetic)Bon [facility] HealthStart: 10-10-2025 End: 88-72-0256Gouajrp encounter hjaeodunt39/15/2026 4:00 PM EST Appointment [facility] [address] [place], [place] [id number] epic/ptMwilson street hospitalR&M Engineering [facility] MammographyComment on above:epic/pt Start: 10-08-2025 End: 70-98-5835Avlbnoz encounter /13/2026 1:20 PM EST Office Visit [facility] Part [address] [address] Nathan Ardon MD [address] [place] [address] [place] [address] 3 month [facility] up[facility] on above:3 month follow upStart: 07-32-3686QGK test (Diabetes, CKD 3-4, OR last GFR 15-59)GFR test (Diabetes, CKD 3-4, OR last GFR 15-59)[facility]: 09-07-2025 GFR test (Diabetes, CKD 3-4, OR last GFR 15-59)GFR test (Diabetes, CKD 3-4, OR last GFR 15-59)[facility]: 09-03-2025 End: 24-91-2441Llitecy encounter mrjkrwsvy24/09/2025 2:00 PM EST Office Visit [facility] [address] [address] Nathan Ardon MD [address] [place] [address] [place] [address] [facility] above:3 monthStart: 08-21-2025 End: 63-29-5333Rkzwrkm encounter sltchyumm54/26/2025 2:00 PM EST Appointment [facility] ([facility]) [address] [place], [place] [phone] Allergy injections. Dr Dixon.[facility] ([facility])Comment on above: Allergy injections. Dr Dixon.Start: 08-15-2025 End: 40-50-7394Hrbkeqw encounter cujpohylc86/20/2025 2:00 PM EST Appointment [facility] ([facility]) [address] [place] [address] [address] Dixon[address] ([facility])Comment on above: Allergy injections. Dr Dixon.Start: 72-69-0518Qcxqhudl screeningDiabetic retinal examMary Washington Hospital on above:Postponed from 10/17/2020 (Patient Refused)Start: 08-08-2025 End: 83-99-0913Kdblqlh encounter aerieizxp94/13/2025 2:00 PM EST Appointment [facility] ([facility]) [address] [place] [address] Dixon[address] ([facility]Comment on above: Allergy injections. Dr Dixon.Start: 08-01-2025 End: 44-43-5510Qfbyokl encounter tsznislyt39/06/2025 2:00 PM EST Appointment [facility] ([facility]) [address] [place] [address] Dixon[address] ([facility])Comment on above: Allergy injections. Dr Dixon.Start: 07-29-2025 End: 84-57-8116Xldsnvr encounter procedureParkview Health MRIComment on above:media sched w ptStart: 46-97-1823RTR test (Diabetes, CKD 3-4, OR last GFR 15-59)GFR test (Diabetes, CKD 3-4, OR last GFR 15-59)[facility] Start: 07-25-2025 End: 56-10-5401Faluwdf encounter /30/2025 2:00 PM EDT Appointment [facility] ([facility]) [address] [place] [address] Dixon[address] ([facility])Comment on above: Allergy injections. Dr Dixon.Start: 59-38-5973Qgntehzcqy A1c kizxupedffoJ2X test (Diabetic or Prediabetic)[facility] CenterStart: 07-23-2025 End: 01-73-5239Sadjfkegl to same day surgery dczhqn3707/23/2025 7:30 AM EDT - 07/23/2025 8:35 AM EDT Surgery [facility] OR [address] [place] [address] Florida Everett MD [address] [place] [address], [address] [place] [address] EXTRACORPOREAL SHOCK WAVE LITHOTRIPSYMT ORComment on above:EXTRACORPOREAL SHOCK WAVE LITHOTRIPSYStart: 07-23-2025 End: 19-19-9008Xtfiutudlqf xtrcorp shock [facility] HospitalStart: 06-63-8870Wxiqjanqxm hospital visit by gtivfxvix07/28/2025 7:30 AM EDT Hospital Encounter [facility] OR [address] [phone] Florida Everett MD [address] [facility], [address] [place] [address] [facility] ORStart: 13-94-5322FVT test (Diabetes, CKD 3-4, OR last GFR 15-59)GFR test (Diabetes, CKD 3-4, OR last GFR 15-59)Bon [facility] HospitalBarosenseInova Women's HospitalStart: 07-18-2025 End: 88-02-4702Xqxvdov encounter uyllklgyv17/23/2025 1:45 PM EDT Office Visit [facility] [address] [facility] [address] [place] [phone] Meera Mike DPM [address] [facility] [address] [place] [address] [facility] Comment on above:3 MONTHSStart: 07-17-2025 End: 44-48-1298Usppjjr encounter procedureC[facility] ([facility])Comment on above:Allergy injections. Dr Dixon.Media/scheduled with ptStart: 07-16-2025 Influenza vaccinationFlu vaccine (#1)Bon ethologyInova Women's HospitalComment on above: Postponed from 04/26/2025 (Unavailable)Start: 11-52-9723Qfzwnvjy foot examinationDiabetic foot examBon SecBarosenseInova Women's HospitalStart: 07-04-2025 End: 77-22-0501Zrbrpfb encounter jdawcjtbo75/09/2025 2:30 PM EDT Appointment [facility] [address], [place] [id number] epic/ptMer[facility] MammographyComment on above:epic/pt Start: 48-16-4245EKX test (Diabetes, CKD 3-4, OR last GFR 15-59)GFR test (Diabetes, CKD 3-4, OR last GFR 15-59)Bon ethologyInova Women's HospitalStart: 06-19-2025 End: 77-03-5927Fukdmrl encounter sntmycljv23/24/2025 1:30 PM EDT Appointment [facility] ([facility] [place] [address] [place], [place] [id number] Allergy injections. Dr Dixon.[facility] ([facility] [place]Comment on above: Allergy injections. Dr Dixon.Start: 06-14-2025 End: 24-38-0516Cdgxexe encounter srqfbubqd26/19/2025 5:15 PM EDT Appointment [facility] [address] [id number] Nathan Ardon MD [address] [place] [phone] epic - omar w/ [facility] CT ScanComment on above: epic - moar w/ ptStart: 06-12-2025 End: 47-54-7256Kewdfai encounter /17/2025 2:40 PM EDT Office Visit [facility] [address] [phone] Vivian Lemos, WILDLIFE 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 P[employer]ING CREW [address] [place] [address] hospital f/u-heart murmur and lightheaded,acute kidney injuryCass County Health System TiffinComment on above:hospital f/u-heart murmur and lightheaded,acute kidney injuryStart: 33-51-5475PFDFX-19 Vaccine ( season)COVID-19 Vaccine ( season)Bon GlycoVaxyn [facility] HospitalComment on above:Postponed from 05/27/2024 (Unavailable)Start: 38-45-4089MZQEL-19 Vaccine ()COVID-19 Vaccine ( season)Bon [facility] HospitalComment on above:Postponed from 05/27/2024 (Unavailable)Start: 06-11-2025 Hepatitis B vaccine (1 of 3 - 19+ 3-dose series)Hepatitis B vaccine (1 of 3 - 19+ 3-dose series)Bon GlycoVaxyn HealthComment on above:Postponed from 02/29/1992 (Patient Refused)Start: 41-01-5002BDB screeningHIV screenBon Wilson HealthComment on above:Postponed from 02/29/1988 (Patient Refused)Start: 62-18-3919Rsczkphi vaccine (2 of 2)Shingles vaccine (2 of 2)Bon Wilson HealthComment on above:Postponed from 05/20/2023 (Patient Refused)Start: 49-51-0842Snxgfsrrcr A1c dfjnszvhmfxT0W test (Diabetic or Prediabetic)Bon [facility] HealthStart: 06-07-2025 End: 84-41-9923Dtanj metabolic 2000 panel - Serum or PlasmaBasic Metabolic Panel Lab Routine BAILEE (acute kidney injury) Expected: 06/07/2025, Expires: 05/31/2026 Bon Wilson HealthComment on above:Expected: 06/07/2025, Expires: 05/31/2026Start: 06-04-2025 End: 53-57-5637Gjlcpmb encounter enqcmrtoq07/09/2025 9:00 AM EDT Office Visit [facility] [address] [address] Nathan Ardon MD [address] [place] [address] [place] [address] low BP/ med changesDOCTORS [facility] Part Day Kimball HospitalComment on above:low BP/ med changesStart: 05-29-2025 End: 00-11-8042Qjfeukg encounter procedureMTHZ Physical TherapyComment on above: Allergy injections. Dr Dixon.Start: 80-81-5781TYXJC-19 Vaccine ( season)COVID-19 Vaccine ( season)[facility] CenterStart: 05-24-2025 End: 10-85-9954Lppkfmh encounter uojshdocd15/29/2025 1:45 PM EDT Appointment [facility] Physical Therapy [address] [place] [address] Olivia Nam PT UPOCMTHZ Physical TherapyComment on above:UPOCStart: 05-23-2025 End: 49-72-6757Eiynzoz encounter procedureUK [facility] Part of Day Kimball HospitalComment on above:1 year follow upAllergy injections. Dr Dixon. Start: 05-20-2025 End: 21-96-7367Zufaajw encounter ilqjocmcl51/25/2025 1:30 PM EDT Appointment [facility] Physical Therapy [address] [place] [address] Hussein Rich PTAMTHZ Physical TherapyStart: 34-19-4439Tgozmzumsn MonitoringDepression MonitoringBON PAULDING COUNTY HOSPITALStart: 98-18-0538Lopfymlyr vaccinationBON PAULDING COUNTY HOSPITALComment on above:Postponed from 04/26/2024 (Patient Refused) Postponed from 04/26/2025 (Patient Refused)Start: 26-97-6825Tqmif panelLipidsReston Hospital CenterComment on above:Postponed from 03/23/2025 (Not Indicated) Start: 05-16-2025 End: 46-21-3915Cnyewyl encounter procedureCEN[facility]AL [facility] Physical TherapyComment on above: Allergy injections. Dr Dixon.Start: 05-16-2025 End: 47-55-6352Bbddijk encounter hflatummt76/21/2025 11:20 AM EDT Office Visit [facility] [address] [place] [phone] Vivian Lemos, WILDLIFE 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 [employer]W [address] [place] [address] Abnormal bone density test. Figure out next steps and talk about my ears.//Auto CMeMercyOne Siouxland Medical CenterComment on above:Abnormal bone density test. Figure out next steps and talk about my ears.//Auto CStart: 05-13-2025 End: 76-73-7989Qhppdye encounter /18/2025 2:30 PM EDT Appointment [facility] Physical Therapy [address] [place] [address] Olivia Nam PTMTHZ Physical TherapyStart: 05-10-2025 End: 53-48-7856Vpxorpd encounter woujusyxy03/15/2025 2:30 PM EDT Appointment [facility] Physical Therapy [address] [place], [place] [phone] RichHussein, PTAMTHZ Physical TherapyStart: 05-09-2025 End: 46-55-2322Umtauec encounter procedureMTHZ Physical TherapyComment on above: Allergy injections. Dr Dixon.Start: 05-02-2025 End: 47-29-7839Dackocp encounter procedurePromedica Bay Park HospitalComment on above:epic/ptAllergy injections. Dr Dixon.Start: 04-30-2025 End: 02-27-1562Ywclbry encounter jgqfrulmh79/05/2025 12:45 PM EDT Appointment [facility] Physical Therapy [address] [place] [address] Olivia Nam, PT UPOCMTHZ Physical TherapyComment on above:UPOCStart: 04-29-2025 Subsequent hospital visit by ugtnhdsjy25/04/2025 3:00 PM EDT Hospital Encounter [facility] Specialty Clinic ([facility]) [address] [place], [place] [phone] [facility] Specialty Clinic (MOB)Start: 04-29-2025 End: 82-53-3195Barwwgk encounter procedureMTHZ Physical TherapyComment on above: Allergy injections. Dr Dixon.Start: 94-34-0023Fnvpusufm vaccinationFlu vaccine (#1)[facility] HospitalStart: 04-25-2025 End: 32-90-0085Yaisxhc encounter zmmdaclwt83/31/2025 4:20 PM EDT Office Visit [facility] [address] [phone] Vivian Lemos, WILDLIFE 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 [employer]W [address] [place] [address] I m still having trouble with my ears.[facility] CenterComment [facility] above:I m still having trouble with my ears.Start: 04-25-2025 End: 36-37-5272Hvefkdl encounter procedureMTHZ Physical TherapyComment on above: Allergy injections. Dr Dixon.Start: 04-22-2025 End: 63-60-9099Vdcmkuc encounter procedureMTHZ Physical TherapyComment on above: Allergy injections. Dr Dixon.Start: 04-18-2025 End: 68-88-0560Wiyvdel encounter procedureMTHZ Physical TherapyComment on above: Allergy injections. Dr Dixon.Start: 04-17-2025 End: 10-30-2234Cucloni encounter tvmhfwdde90/23/2025 2:15 PM EDT [facility] Hospital[facility] [address] [facility] [address] [place] [address] Meera Mike, DPM [address] [facility] [address] [place] [address] 8 weeksMerSparrow Ionia Hospital PodiatryComment on above:8 weeksStart: 04-15-2025 End: 60-94-7352Jnmnwmy encounter procedureMTHZ Physical TherapyComment on above: Allergy injections. Dr Dixon.Start: 04-12-2025 End: 00-42-1760Launzdg encounter ejdwkuoey23/18/2025 3:15 PM EDT Appointment [facility] [address] [phone] media[address] [facility] MRIComment on above:media/ptStart: 04-11-2025 End: 09-93-6169Qkqqqqf encounter procedureMTHZ Physical TherapyComment on above: Allergy injections. Dr Dixon.Start: 04-08-2025 End: 76-46-9265Gafrdwl encounter urbkpihoj25/14/2025 2:15 PM EDT Appointment [facility] Physical Therapy [address] [place] [phone] Alanna Chappell, PTAMTHZ Physical TherapyStart: 44-23-2369Fwytepofli Monitoring Depression MonitoringBON PAULDING COUNTY HOSPITALStart: 73-56-0535Dbxvnycp foot examinationDiabetic foot examBON [facility] Centerart: 78-42-5877XYF test (Diabetes, CKD 3-4, OR last GFR 15-59)GFR test (Diabetes, CKD 3-4, OR last GFR 15-59)B[facility]OSPITALStart: 75-04-0537Ffhphbifcf A1c jyjdkwhwhvjM1R test (Diabetic or Prediabetic)BON [facility] Centerart: 98-12-1665Txifh panelLipidsBON [facility]ULDING COUNTY HOSPITALStart: 39-86-2065Fwbun screening for protein Diabetic Alb to Cr ratio (uACR) testBON PAULDING COUNTY HOSPITALStart: 02-14-2025 End: 96-99-3959Jaxzlsx encounter kuujpsyid72/22/2025 3:00 PM EDT Office Visit [facility] [address] [facility] [address] [place] [address] Meera Mike DPM [address] [facility] [address] [place] [address] 6 WEEKSMerSparrow Ionia Hospital PodiatryComment on above:6 WEEKSStart: 01-29-2025 End: 04-99-9028Javfhfj encounter qbdpsnaiy00/06/2025 10:45 AM EDT Appointment [facility] Physical Therapy [address] [place], [place] [phone] Olivia Block PT needs to schedule more. pre cert note inMTHZ Physical TherapyComment on above:needs to schedule more. pre cert note inStart: 01-24-2025 End: 93-19-1571Irepvil encounter ocqdfysxw19/01/2025 12:45 PM EDT Appointment [facility] Physical Therapy [address] [place], [place] [phone] Alanna Chappell PTAMTHZ Physical TherapyStart: 01-22-2025 End: 25-53-6134Ekpxrhb encounter izzxjwxuo25/29/2025 11:30 AM EDT Appointment [facility] Physical Therapy [address] [place], [place] [phone] Hussein Rich PTAMTHZ Physical TherapyStart: 01-17-2025 End: 21-58-5055Amxypeo encounter ppgbehrmz00/24/2025 2:45 PM EDT Appointment [facility] Physical Therapy [address] [place] [address] Makayla Lozoya PTAMTHZ Physical TherapyStart: 01-14-2025 End: 91-33-0672Astsmen encounter nenaamsis71/21/2025 12:15 PM EDT Appointment [facility] Physical Therapy [address] [place] [address] Makayla Lozoya PTAMTHZ Physical TherapyStart: 01-10-2025 End: 92-69-8892Wxpzitr encounter kobidfhls55/17/2025 1:45 PM EDT Appointment [facility] Physical Therapy [address] [place] [address] Hussein Rich PTAMTHZ Physical TherapyStart: 01-08-2025 End: 51-90-4665Bnimhtf encounter kulvnhwev13/15/2025 2:30 PM EDT Appointment [facility] Physical Therapy [address] [place] [address] Hussein Rich PTA upoc- olivia carlo patient, blocked him for 15 minutes at 2:30.[facility] Physical TherapyComment on above:upoc- olivia carlo patient, blocked him for 15 minutes at 2:30.Start: 01-03-2025 End: 05-15-3203Jtzgypd encounter jbxebdqap66/10/2025 3:30 PM EDT Office Visit [facility] [address] [facility] [address] [place] [address] Meera Mike DPM [address] [facility] [address] [place] [address] 6 WEEKSHolland Hospital PodiatryComment on above:6 WEEKSStart: 01-02-2025 End: 44-63-0102Splbyeq encounter procedureMT Physical TherapyComment on above: KAVEH BAKER PTStart: 12-31-2024 End: 72-80-5892Diykkup encounter dwafgpsri64/07/2025 12:45 PM EDT Appointment [facility] Physical Therapy [address] [place] [address] Alanna Chappell PTAMTHZ Physical TherapyStart: 12-26-2024 End: 97-22-2345Euxbqeu encounter dxlgzbdse64/02/2025 1:30 PM EDT Appointment [facility] Physical Therapy [address] [place] [address] Phu Mora Physical TherapyStart: 12-24-2024 End: 59-80-3879Qslruiv encounter hyopyyfka07/31/2025 12:45 PM EDT Appointment [facility] Physical Therapy [address] [place] [address] Alanna Chappell PTAMTHZ Physical TherapyStart: 12-19-2024 End: 51-42-6387Tyqlcef encounter procedureMTHZ Physical TherapyStart: 12-17-2024 End: 84-40-2775Wzutfhc encounter sgbqfwvyb75/24/2025 12:45 PM EDT Appointment [facility] Physical Therapy [address] [place], [place] [phone] Alanna Chappell PTAMTHZ Physical TherapyStart: 12-12-2024 End: 79-32-9468Qcjutfd encounter ewtbqapuj10/19/2025 1:45 PM EDT Appointment [facility] Physical Therapy [address] [place] [address] Phu Mora Physical TherapyStart: 12-10-2024 End: 51-69-2628Kmsemlz encounter uhpyrxscw91/17/2025 1:30 PM EDT Appointment [facility] Physical Therapy [address] [place], [place] [phone] Disha Escamilla PTAMTHZ Physical TherapyStart: 92-96-6907Noehazkpml MonitoringDepression MonitoringBON PAULDING COUNTY HOSPITALStart: 76-30-5543CEP test (Diabetes, CKD 3-4, OR last GFR 15-59)GFR test (Diabetes, CKD 3-4, OR last GFR 15-59)[facility]ICStart: 12-05-2024 End: 47-05-9845Pbxpzks encounter wfugqilpe86/12/2025 2:30 PM EDT Appointment [facility] Physical Therapy [address] [place] [address] Makayla Lozoya PTAMTHZ Physical TherapyStart: 12-03-2024 End: 04-02-3334Omlwmze encounter atcfcucct79/10/2025 12:30 PM EDT Appointment [facility] Physical Therapy [address] [place] [address] Makayla Lozoya PTAMTHZ Physical TherapyStart: 11-29-2024 End: 40-00-4850Befvmni encounter jkwrorkwh98/06/2025 11:15 AM EST Appointment [facility] Physical Therapy [address] [place] [address] Alanna Chappell PTAMTHZ Physical TherapyStart: 11-28-2024 End: 56-55-6665Dpsajif encounter fmcjucjro51/05/2025 11:00 AM EST Office Visit [facility] [address] [place] [address] Vivian Lemos APRN - SUPERVISOR [employer] [address] [place] [address] sinus issuesCass County Health System TiffinComment on above: sinus issuesStart: 50-03-1628Yyppcxteof A1c zmupkwhkvytX0G test (Diabetic or Prediabetic)[facility]OSPITALStart: 10-25-2024 End: 89-54-2563Atkylba encounter /30/2025 9:45 AM EST Office Visit [facility] [address] [place] [phone] Meera Mike DPM [address] [address] 3RD [facility] Comment on above:3RD POST OPStart: 10-11-2024 End: 35-78-1111Hsmdfcw encounter pxdmwsfyf61/16/2025 2:00 PM EST Office Visit [facility] [address] [place] [phone] Meera Mike DPZarina [address] [address] 2ND POST [facility]iat[facility] Comment on above:2ND POST OPStart: 10-01-2024 End: 07-00-8559Rldwazb encounter mpbkyqyvy44/06/2025 2:00 PM EST Office Visit [facility] [address] [place] [phone] Vivian Lemos APRN - SUPERVISOR [employer] [address] [place] [address] 6 month f/uMercy [facility]edar City Hospital TiffinComment on above:6 month f/uStart: 26-92-1895OBtH/Tdap/Td vaccine (1 - Tdap)DTaP/Tdap/Td vaccine (1 - Tdap)KEAGAN LITO [facility] HOSPITALComment on above:Postponed from 02/29/1992 (Patient Refused)Start: 09-27-2024 End: 23-83-3745Bthpnml encounter bkwukezmq42/02/2025 10:45 AM EST Office Visit [facility] [address] [facility] [address] [place] [address] Meera Mike DPM [address] [facility] [address] [place] [address] INITIAL POST OPHolland Hospital PodiatryComment on above:INITIAL POST OPStart: 09-14-2024 End: 50-55-9450Gejazjoqk to same day surgery goazth2709/14/2024 8:00 AM EST - 09/14/2024 11:00 AM EST Surgery [facility] OR [address] [place] [address] Meera Mike DPM [address] [facility] [address] [place] [address] REMOVE EXTERNAL FIXATOR LEFT FOOT STC[facility] ORComment on above:REMOVE EXTERNAL FIXATOR LEFT FOOTStart: 09-14-2024 End: 36-42-9573Ulpcakqrnuf subtalarFOOT ARTHRODESIS Charcot ankle, left Diabetes (HCC) 09/14/2024 8:00 AM [facility] HospitalStart: 09-14-2024 End: 87-04-8457Aetolvu external fixation system under anesFOOT EXTERNAL FIXATOR REMOVAL Charcot ankle, left Diabetes (HCC) 09/14/2024 8:00 AM [facility] HospitalStart: 11-93-0250Ahoqbbjhfz hospital visit by physician 09/14/2024 8:00 AM EST Hospital Encounter [facility] OR [address] [place] [address] JjxdzwdgpMeera Mike DPM [address] [facility] [address] [place] [address] [facility] ORStart: 09-04-2024 End: 95-92-2226Qeztukr encounter egfpwdmzu71/10/2024 2:30 PM EST Office Visit [facility] [address] [place] [phone] Meera Mike, PRANAV [address] [facility] of Counts include [address] beds [place] [address] 2 WEEKSHolland Hospital PodiatryComment on above:2 WEEKSStart: 08-21-2024 End: 85-09-4024Oynjahu encounter mpahmsuot33/26/2024 2:00 PM EST Office Visit [facility] [address] [place] [phone] Meera Mike, PRANAV [address] [facility] [place] [address] 3RD POST OP [facility] PodiatryComment on above:3RD POST OPStart: 08-07-2024 End: 41-22-8309Fjwlcdt encounter procedureMERCY [facility] Part of Day Kimball HospitalComment on above:Oropharyngeal dysphagia, tbxxqjyk2JU POST OPStart: 07-16-4002Wutzs panelLipidsCARILION CLINICStart: 99-13-2188Jsjah screening for proteinDiabetic Alb to Cr ratio (uACR) testCARILION CLINICStart: 07-26-2024 End: 57-96-5967Vehmqiy encounter kiyqnhscs52/31/2024 8:00 AM EDT Office Visit [facility] [address] [place] [phone] Meera Mike, PRANAV [address] [facility] of Counts include 234 beds at the [facility], [place] [phone] INITIAL POST OP [facility] PodiatryComment on above:INITIAL POST OPStart: 07-23-2024 End: 26-81-5729Snhkxqksokq uniplane external fixation systemANKLE EXTERNAL FIXATOR APPLICATION Charcot ankle, left Closed dislocation of tarsal joint of left foot 07/23/2024 2:00 PM [facility] 07-23-2024 End: 90-00-9156Hfp skel fixj metar fx w/manjFOOT CLOSED REDUCTION PINNING Charcot ankle, left Closed dislocation of tarsal joint of left foot 07/23/2024 2:00 PM [facility]: 67-54-9675Myesbyiq screening Diabetic retinal examBON SECOURS [facility] HEALTHComment on above:Postponed from 10/17/2020 (Not Indicated)Start: 26-88-7845Bsweuyxxyfcz 0-64 years Vaccine (2 - PCV)Pneumococcal 0-64 years Vaccine (2 - PCV)[facility] HEALTHComment on above:Postponed from 05/10/2019 (Patient Refused)Start: 76-49-0812Ziuhfpbmnikj 0-64 years Vaccine (2 of 2 - PCV)Pneumococcal 0-64 years Vaccine (2 of 2 - PCV) [facility] HEALTHComment on above:Postponed from 05/10/2019 (Patient Refused)Start: 72-38-6541ESV test (Diabetes, CKD 3-4, OR last GFR 15-59)GFR test (Diabetes, CKD 3-4, OR last GFR 15-59)[facility] HEALTHStart: 06-14-2024 GFR test (Diabetes, CKD 3-4, OR last GFR 15-59)GFR test (Diabetes, CKD 3-4, OR last GFR 15-59)BON SECKona Group HEALTHStart: 97-65-2521EGQWN-19 Vaccine (#1) COVID-19 Vaccine (#1)[facility] [employer] HEALTHComment on above:Postponed from 1973 (Not Indicated)Start: 83-54-3115KWAIO-19 Vaccine () COVID-19 Vaccine ( season)[facility] [employer] HEALTHComment on above: Postponed from 05/27/2023 (Not Indicated)Start: 06-76-1403Lyxdwyyj foot examinationDiabetic foot examBON [facility] [employer] HEALTHComment on above:Postponed from 03/18/2022 (Not Indicated)Start: 07-81-2460Opzczgymm B vaccine (1 of 3 - 19+ 3-dose series)Hepatitis B vaccine (1 of 3 - 19+ 3-dose series)BON [facility] HOSPITALComment on above:Postponed from 02/29/1992 (Not Indicated)Start: 53-35-2060Jsllbpslj B vaccine (1 of 3 - 3-dose series)Hepatitis B vaccine (1 of 3 - 3-dose series)[facility]ON [facility]HAB[facility] HOSPITALKona Group HEALTHComment on above:Postponed from 1973 (Not Indicated)Start: 68-71-9462TVJ screeningHIV screenBON FREMONT HOSPITALcWyze WHITE HOSPITALComment on above:Postponed from 02/29/1988 (Patient Refused)Start: 94-55-4315Tjupkguq vaccine (2 of 2)Shingles vaccine (2 of 2)BON [facility] HOSPITALComment on above:Postponed from 05/20/2023 (Unavailable)Start: 05-16-2024 End: 26-69-8544Kgykdjq encounter jkqymipzd95/21/2024 1:40 PM EDT Office Visit [facility] [address] [phone] Nathan Ardon MD [address] [place] [phone] 1 [facility], Edwin ShawComment on above:1 yearStart: 05-03-2024 End: 17-18-1390Dhoefsy encounter fpuhjcstu29/08/2024 1:00 PM EDT Appointment [facility] Physical Therapy [address] [place] [address] Phu Mora Physical TherapyStart: 05-01-2024 End: 23-84-6586Vefjnjt encounter kxxbshluq82/06/2024 2:45 PM EDT Appointment [facility] Physical Therapy [address] [place] [address] Phu Mora Physical TherapyStart: 73-19-2276Ijrorjvhu vaccinationBON SECEducational Services Institute [facility] HOSPITALStart: 04-25-2024 End: 53-33-7958Rjvvjvr encounter wrdlauxdx01/31/2024 1:45 PM EDT Appointment [facility] Physical Therapy [address] [place] [address] Sonia Baum, PT UPOCMTHZ Physical TherapyComment on above:UPOCStart: 04-23-2024 End: 26-22-6525Bvqxasn encounter /29/2024 1:15 PM EDT Appointment [facility] Physical Therapy [address] [place] [address] Phu Mora Physical TherapyStart: 04-18-2024 End: 04-87-9802Oafbzuc encounter hxicbdytk98/24/2024 3:00 PM EDT Appointment [facility] Physical Therapy [address] [place] [address] Phu Mora Physical TherapyStart: 04-16-2024 End: 94-50-2961Pfkvotp encounter ffcjhsedu00/22/2024 1:00 PM EDT Appointment [facility] Physical Therapy [address] [place] [address] Phu Mora Physical TherapyStart: 03-28-2024 End: 33-52-1455Sarmezn encounter bjyblyual78/03/2024 2:00 PM EDT Office Visit [facility] [address] [place] [phone] Vivian Lemos, WILDLIFE 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 [employer] [address] [phone] 6 MONTHCass County Health System TiffinComment on above:6 MONTHStart: 45-88-2627Claxjnrho vaccinationFlu vaccine (#1)[facility] HOSPITALComment on above:Postponed from 04/26/2023 (Unavailable)Start: 03-24-2024 Depression MonitoringDepression MonitoringBON PAUL[facility]ING COUNTY HOSPITALStart: 69-14-5347Avdoyjbqyd A1c zbxceibmefiO0J test (Diabetic or Prediabetic)[facility]OSPITALStart: 03-08-2024 End: 60-17-2721Nrygcyj encounter zachydfge12/13/2024 1:45 PM EDT Appointment [facility] Physical Therapy [address] [place] [address] Phu Mora A NEW REFERRAL FOR SHOULDER PAIN. SENT REQUEST TO ORIGINAL REFERRING DOCTOR TO SIGN OFF ON ADDING IT TO POCVTHZ Physical TherapyComment on above:NEW REFERRAL FOR SHOULDER PAIN. SENT REQUEST TO ORIGINAL REFERRING DOCTOR TO SIGN OFF ON ADDING IT TO POCStart: 03-06-2024 End: 76-66-5405Uqywqkf encounter ohczmldca40/11/2024 1:15 PM EDT Office Visit [facility] [address] [place] [address] Roxie Martini, DO [address] [place] [address] follow upUK HEALTHCARE [facility] & [facility]YN[facility]OLOG[facility] HospitalComment on above:follow upStart: 2024 End: 82-45-4953Uqlgfdn encounter /04/2024 1:45 PM EDT Appointment [facility] Physical Therapy [address] [place] [address] Génesis Hickman, PTAMTHZ Physical TherapyStart: 02-23-2024 End: 86-55-3081Ccyiebr encounter qgeauzzwt60/30/2024 3:00 PM EDT Appointment [facility] Physical Therapy [address] [place] [address] Lary Rea, PTAMTHZ Physical TherapyStart: 02-14-2024 End: 76-04-2826Ognfwya encounter fdvzmgkse97/21/2024 3:00 PM EDT Appointment [facility] Physical Therapy [address] [place] [address] Sahara Strauss, PTMTHZ Physical TherapyStart: 02-08-2024 End: 10-18-5293Yskmrnu encounter relnfdzvr18/15/2024 1:15 PM EDT Appointment [facility] Physical Therapy [address] [place] [address] Phu Mora AMTHSusan Physical TherapyStart: 02-06-2024 End: 26-81-9663Jhsrszm encounter fuelimufh92/13/2024 12:30 PM EDT Appointment [facility] Physical Therapy [address] [place] [address] Dread Sunshine PTAMTHZ Physical TherapyStart: 02-01-2024 End: 21-86-4479Xpsbckm encounter pjjtosjad45/08/2024 2:30 PM EDT Appointment [facility] Physical Therapy [address] [place] [id number] [employer] PTAM[facility] Physical TherapyStart: 01-30-2024 End: [id number] encounter pyvxiaokk59/06/2024 2:30 PM EDT Appointment [facility] Physical Therapy [address] [place] [id number] [facility] Physical TherapyStart: 01-25-2024 End: 10-11-8691Yisdsgk encounter jakdegrjk35/01/2024 2:45 PM EDT Appointment [facility] Physical Therapy [address] [place] [phone] [facility] Physical TherapyStart: 01-23-2024 End: 29-90-3099Mhuuhvu encounter bibaxfobl57/29/2024 2:30 PM EDT Appointment [facility] Physical Therapy [address] [place] [address] Disha Escamilla PTAMTHZ Physical TherapyStart: 12-27-2023 End: 33-17-5750Bnkacpn encounter qbnufciga47/02/2024 1:30 PM EDT Office Visit [facility] Part [address] [address] Chen Rocha PA-C [address] [place] [address] leg edema, had labs done [facility] Part [facility] Kimball HospitalComment on above:leg edema, had labs doneStart: 09-28-2023 End: 77-87-2142Dcxtqfl encounter /03/2024 3:40 PM EST Office Visit [facility] [address] [place] [phone] Vivian Lemos, WILDLIFE 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 [employer] [address] [place] [address] 6 [facility] TiffinComment on above:6 monthStart: 92-37-0173Cliaytaxvt MonitoringDepression MonitoringCARILION CLINICStart: 22-58-0808ESpP/Tdap/Td vaccine (1 - Tdap)DTaP/Tdap/Td vaccine (1 - Tdap)[facility] Campusment on above:Postponed from 02/29/1992 (Patient Refused)Start: 24-26-6834SRQ test (Diabetes, CKD 3-4, OR last GFR 15-59)GFR test (Diabetes, CKD 3-4, OR last GFR 15-59)[facility] Start: 32-85-4356Uqalhgmukp A1c lhseirwzcueE9M test (Diabetic or Prediabetic)[facility] Systemart: 53-34-8983Rtrug panelLipidsCARILION CLINIC Start: 34-31-1218Ihufz screening for proteinDiabetic Alb to Cr ratio (uACR) test [facility]ICStart: 06-22-2023 End: 19-72-0466Uqbqlyp encounter /27/2023 8:40 AM EDT Office Visit [facility] [address] [place] [phone] Vivian Lemos, JOSSE - SUPERVISOR [employer] [address] [place] [address] Hospital f/u-PneumoniaCass [facility] System TiffinComment on above:Hospital f/u-PneumoniaStart: 43-02-2376Albabkrk retinal examDiabetic retinal examCARILION CLINICComment on above:Postponed from 10/17/2020 (Not Indicated)Start: 93-58-0058Ersxoqnj screeningDiabetic retinal examRetreat Doctors' Hospital on above:Postponed from 10/17/2020 (Not Indicated) Start: 70-29-7872Ydtamnrqys MonitoringDepression MonitoringCARILION CLINICStart: 96-76-0411Ktidvhsvf vaccinationCARILION CLINICComment on above:Postponed from 05/27/2022 (Patient Refused)Postponed from 04/26/2022 (Patient Refused)Postponed from 04/26/2023 (Patient Refused)Start: 05-20-2023 Shingles vaccine (2 of 2)Shingles vaccine (2 of 2)[facility]ITALStart: 05-16-2023 End: 28-18-7279Jrghtrd encounter jbnqiaase51/21/2023 Office Visit Cardiology Nathan Ardon MD [address] [place] [address] [facility] Part of [facility] HospitalStart: 42-77-2388Ooqchmsmx for malignant neoplasm of breastBreast cancer screenBON PAULDING COUNTY HOSPITALStart: 03-30-2023 End: 46-94-9368Gouztoa encounter bcohqbfwu06/05/2023 Office Visit Cardiology Nathan Ardon MD [address] [place] [address] [facility] Part of [facility] HospitalStart: 03-24-2023 End: 60-95-3920Yiksfco encounter pqkektcif71/29/2023 Office Visit Primary Care Vivian Lemos, WILDLIFE 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 [employer] [address] [place], [place] [phone] (Work) [facility] Care TiffinStart: 27-03-5749WONLH-19 Vaccine (#1)COVID-19 Vaccine (#1)[facility]OSPITALComment on above: Postponed from 1973 (Not Indicated)Start: 40-66-5354FKJBU-19 Vaccine (1) COVID-19 Vaccine (1)[facility] HEALTHComment on above:Postponed from 1978 (Not Indicated)Start: 39-46-0720Ykkzosxekt MonitoringDepression MonitoringBON [facility] COUNTY HOSPITALStart: 42-28-8172Hkjjoyro foot examination Diabetic foot examBON PAULDING COUNTY HOSPITALComment on above:Postponed from 03/18/2022 (Patient Refused)Start: 93-08-7455Skuzunswvk A1c brfolbhnugpZ0J test (Diabetic or Prediabetic)[facility] HOSPITALKona Group WHITE HOSPITALStart: 90-49-1121Gjnpfvugb B vaccine (1 of 3 - Risk 3-dose series)Hepatitis B vaccine (1 of 3 - Risk 3-dose series)[facility] HOSPITALKona Group HEALTHComment on above:Postponed from 02/29/1992 (Patient Refused)Start: 15-25-7909CKH screeningHIV screenBON [facility] PingCo.comUNIVERSITY HOSPITALS ELYRIA MEDICAL CENTERComment on above:Postponed from 02/29/1988 (Patient Refused)Start: 28-19-7439Spzvrnqplyjp 0-64 years Vaccine (2 - PCV)Pneumococcal 0-64 years Vaccine (2 - PCV)[facility]IL[facility] HOSPITALKona Group WHITE HOSPITALComment on above:Postponed from 05/10/2019 (Not Indicated)Start: 08-48-8332Qnnpkeljx for malignant neoplasm of lungLung Cancer Screening &/or CounselingBon [facility] [place] OnVantage Memorial [facility] System Sel[facility] General HospitalStart: 01-19-2023 End: 89-07-2609Bbxcdwm encounter mctxbhkxa61/26/2023 Appointment Sleep Center [facility] Sleep CenterStart: 12-08-2022 End: 90-38-9255Slunfmvwp to same day surgery [facility] ORComment on above: COLORECTAL CANCER SCREENING, NOT HIGH RISKStart: 12-08-2022 End: 20-27-2827Htzso ca scrn not hi rsk indGrand Lake Joint Township District Memorial Hospitaltart: 07-18-5359Ssdfwxjorc hospital visit by physicianC[facility] ORStart: 11-23-2022 End: 68-89-6425Idxplyp encounter nfiuykrcc18/28/2023 Appointment Sleep Center [facility] Sleep CenterStart: 05-15-8812Usveaurago measurementCreatinine monitoring White HospitalStart: 36-64-1607Xiaut panelWhite HospitalStart: 74-70-4935Pcrofeoph monitoringPotassium monitoringWhite HospitalStart: 04-21-9277Gxvzp screening for proteinDiabetic microalbuminuria testEast Liverpool City Hospital HealthStart: 10-08-2022 End: 50-27-6381Fqstmgq encounter bvdxuisfz76/13/2023 [facility]ointment [facility] Start: 58-47-7453Ybilgjcobj hospital visit by suesjahjs60/06/2023 Hospital Encounter Stress Lab Canceled (Other)[facility] Stress LabComment on above:Canceled (Other)Start: 09-23-2022 End: 41-83-0710Mdcljqk encounter ppwmagffe59/29/2022 Office Visit Primary Care Vivian Lemos, WILDLIFE 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 [employer] [address] [place], [place] [phone] (Work) [facility] Care SolsberryStart: 53-07-2236TJqB/Tdap/Td vaccine (1 - Tdap)DTaP/Tdap/Td vaccine (1 - Tdap)[facility] HealthComment on above: Postponed from 02/29/1992 (Patient Refused)Start: 41-24-5356Nadrkpsfx vaccinationFlu vaccine (#1)White HospitalComment on above:Postponed from 05/27/2021 (Patient Refused)Start: 09-10-2022 End: 72-84-9757Cpklwjz encounter hfhqyelhj16/16/2022 Appointment LabTORRI Covid ScreeningStart: 08-06-2022 End: 57-78-8581Wgcoeoz encounter vtuyadyqs66/11/2022 Appointment Physical Therapy Olivia Nam PTMTHZ Physical TherapyStart: 07-23-2022 End: 05-32-6939Jelkxnn encounter jioxgnmce97/28/2022 Appointment Physical Therapy Olivia Nam PTMTHZ Physical TherapyStart: 07-22-2022 End: 45-77-6586Yhobplq encounter oeiniijre01/27/2022 Appointment Physical Therapy Mulu Mccray PTAMTHZ Physical TherapyStart: 07-21-2022 End: 67-03-9685Xlaumnn encounter eckrfkugk11/26/2022 Appointment Physical Therapy Karrie Beltran PTAMTHZ Physical TherapyStart: 07-19-2022 End: 81-89-6971Ednfklt encounter procedureSelect Medical Specialty Hospital - Cleveland-Fairhilltart: 07-16-2022 End: 55-23-5409Zpzjygn encounter biylnexdd78/21/2022 Appointment Physical Therapy Olivia Nam PTMTHZ Physical TherapyStart: 07-14-2022 End: 77-96-8594Uacxium encounter bwmyzpzxo63/19/2022 Appointment Physical Therapy Karrie Beltran PTAMTHZ Physical TherapyStart: 07-13-2022 End: 86-61-5890Bylichp encounter rijmbbzxm72/18/2022 Appointment Physical Therapy Mulu Mccray PTAMTHZ Physical TherapyStart: 38-37-0003Rvoumirxpz hospital visit by mjrackqhk35/18/2022 Hospital Encounter Physical Therapy Mulu Mccray PTAMTHZ Physical TherapyStart: 07-12-2022 End: 90-90-4873Cvxyekp encounter procedureMTLAURA Physical TherapyStart: 07-08-2022 End: 84-61-6300Ivknsdm encounter dxhsoelpb01/13/2022 Appointment Physical Therapy Olivia Nam PTMTHZ Physical TherapyStart: 07-07-2022 End: 26-90-2194Eoudkuy encounter cmknyximp41/12/2022 Appointment Physical Therapy Karrie Beltran PTAMTHZ Physical TherapyStart: 07-05-2022 End: 39-37-9258Edxwxmn encounter /10/2022 Appointment Physical Therapy Karrie Beltran PTAMTHZ Physical TherapyStart: 07-02-2022 End: 59-25-3677Haivbte encounter wdhoxrjxo72/07/2022 Appointment Physical Therapy Olivia Nam PTMTHZ Physical TherapyStart: 06-30-2022 End: 72-31-5622Daezbta encounter vmobxyivc09/05/2022 Appointment Physical Therapy Karrie Beltran PTAMTHZ Physical TherapyStart: 06-28-2022 End: 35-26-0658Rssxqdl encounter afsiksvbt48/03/2022 Appointment Physical Therapy Karrie Beltran PTAMTHZ Physical TherapyStart: 06-24-2022 End: 51-05-5585Ldtiswd encounter /29/2022 Appointment Physical Therapy Olivia Nam PTMTHZ Physical TherapyStart: 06-21-2022 End: 75-86-5729Vrelduw encounter fziavkiyg88/26/2022 Appointment Physical Therapy Génesis Hickman PTAMTHZ Physical TherapyStart: 05-62-3635Aujjekyddi hospital visit by jkowgoaph78/26/2022 Hospital Encounter Physical Therapy Génesis Hickman PTAMTHZ Physical TherapyStart: 06-18-2022 End: 73-32-0754Jnebevo encounter zekklltap07/23/2022 Appointment Physical Therapy Karrie Beltran PTAMTHZ Physical TherapyStart: 06-16-2022 End: 31-68-6941Gygnahb encounter seaetwcyp20/21/2022 Appointment Physical Therapy Karrie Beltran PTAMTHZ Physical TherapyStart: 06-14-2022 End: 07-29-1086Hwppzcg encounter jtzavlhgc11/19/2022 Appointment Physical Therapy Karrie Beltran PTAMTHZ Physical TherapyStart: 06-11-2022 End: 02-89-5383Iytgptc encounter sfcyrzool00/16/2022 Appointment Physical Therapy Olivia Nam PTMTHZ Physical TherapyStart: 06-09-2022 End: 49-64-0792Zocsiuw encounter mofwkrwfz49/14/2022 Appointment Physical Therapy Karrie Beltran PTAMTHZ Physical TherapyStart: 06-07-2022 End: 62-57-2126Xqwyusf encounter ncseyvbsw36/12/2022 Appointment Physical Therapy Karrie Beltran PTAMTHZ Physical TherapyStart: 06-04-2022 End: 32-96-2406Ucfcerc encounter ahredidwp95/09/2022 Appointment Physical Therapy Karrie Beltran PTAMTHZ Physical TherapyStart: 06-02-2022 End: 05-44-4312Makihts encounter wwxmcyghe05/07/2022 Appointment Physical Therapy Karrie Beltran PTAMTHZ Physical TherapyStart: 31-46-2817Yjigxflyoz hospital visit by rugyczuzs78/07/2022 Hospital Encounter Physical Therapy Karrie Beltran PTAMTHZ Physical TherapyStart: 05-28-2022 End: 15-45-3925Jvvxmfv encounter lnyhpkrrb94/02/2022 Appointment Physical Therapy Olivia Nam PTMTHZ Physical TherapyStart: 05-27-2022 End: 06-27-7986Stvovdi encounter mmyzmpobu88/01/2022 Appointment Physical Therapy Olivia Nam PTMTHZ Physical TherapyStart: 20-41-1083Inpnvtobu vaccinationFlu vaccine (#1)[facility]ITALStart: 05-27-2022 End: 08-33-5404Looygyn evaluation of patient and wfqsqg3805/27/2022 Nurse Only General Surgery Binta Pearl I, DO [address] [place] [address] [facility] Part [facility] HospitalStart: 05-25-2022 End: 42-19-4367Dcwunlj encounter yrxzijnrh44/30/2022 Appointment Physical Therapy Nathan Garcia PTMTHZ Physical TherapyStart: 05-19-2022 End: 18-77-0926Fblkpau encounter cmyuvvfwp83/24/2022 Procedure visit General Surgery Binta Pearl I, DO [address] [place] [address] [facility] SURGERY Part [facility] HospitalStart: 05-12-2022 End: 20-64-4190Trzchtw encounter rhlnztaml28/17/2022 Office Visit General Surgery Binta Pearl Raleigh, DO [address] [place] [address] [facility] SURGERY Part [facility] HospitalStart: 42-40-4508Xkngdbnj retinal examDiabetic retinal examMercy HealthComment on above:Postponed from 10/17/2020 (Not Indicated)Start: 58-56-4529Lmwnspmf foot examinationDiabetic foot examMercy HealthStart: 82-61-9994Gagkythur B vaccine (1 of 3 - Risk 3-dose series)Hepatitis B vaccine (1 of 3 - Risk 3-dose series)White HospitalComment on above:Postponed from 02/29/1992 (Not Indicated)Start: 03-18-2022 End: 73-26-7492Qaiubpo encounter fyazlwukv84/23/2022 Office Visit Primary Care Vivian Lemos, WILDLIFE 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 [employer] [address] [place], [place] [phone] (Work) [facility] HospitalfinStart: 68-48-0070Ysipqdmfi for malignant neoplasm of cervixCervical cancer screenEast [facility] City Hospital Health Work Phone: comment on above:Postponed from 06/02/2020 (Not Indicated)Start: 86-26-8648Djlffstrts measurementCreatinine monitoringEast [facility] City Hospital [place] Work Phone: start: 04-97-7524Ndfibzjma monitoringPotassium monitoringEast [facility] City Hospital Health Work Phone: start: 75-80-4135ITRNH-19 Vaccine (1)COVID-19 Vaccine (1)White HospitalComment on above:Postponed from 1985 (Patient Refused) Postponed from 1978 (Patient Refused)Start: 46-98-5258Zdyiqfwkh C screeningHepatitis C screenEast [facility] City Hospital [place] Work Phone: comment on above:Postponed from 1973 (Patient Refused)Start: 02-04-2022 End: 76-56-6971Jhofchm encounter procedureUK [facility]ALTH[facility] Part [facility] Connecticuttart: 72-87-9904Eipvgzehqq A1c omqfocrhqnjM8S test (Diabetic or Prediabetic)[facility] HospitalStart: 10-15-2021 End: 82-53-9825khfiazwyjl52/20/2022 Virtual Visit Gastroenterology Claudia Willett, WILDLIFE 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 [employer] [address] [place] [address] [phone] [facility] GastroenterologyStart: 09-17-2021 End: 39-75-7370Pveecnu encounter ecfhklevs49/23/2021 Office Visit Primary Care Vivian Lemos, WILDLIFE 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 [employer] [address], [place] [phone] [facility] Care SolsberryStart: 10-37-1114QQcP/Tdap/Td vaccine (1 - Tdap)DTaP/Tdap/Td vaccine (1 - Tdap)[facility] HospitalTIENComyayo on above: Postponed from 02/29/1992 (Patient Refused)Start: 12-97-2584IBH screeningHIV screenWooster Community Hospital KYComment on above:Postponed from 02/29/1988 (Patient Refused)Start: 09-03-2021 End: 33-26-4227Zahmmcr encounter /09/2021 Office Visit Cardiology Nathan Adron MD [address] [place] [address] [facility] Part of [facility] Hospitaltart: 44-01-6913BvM2v (Bld) [Mass fraction]A1C test (Diabetic or Prediabetic)[place], KYStart: 94-23-3851Mlhhhuilcb A1c lljlinjbgfdS0H test (Diabetic or Prediabetic)[facility] Phone: start: 82-95-3635Etvjp panelLipid screenStrasburg, KYStart: 58-88-3597Zjlayyxmp vaccinationFlu vaccine (#1)[facility] [employer]alk[employer] Phone: start: 03-18-2021 End: 10-85-8577Vgwbki VisitKossuth Regional Health CenterfinStart: 53-93-0500Cqydktrwj B vaccine (1 of 3 - Risk 3-dose series)Hepatitis B vaccine (1 of 3 - Risk 3-dose series)[facility] TIENComment on above:Postponed from 02/29/1992 (Not Indicated)Start: 03-09-2021 End: 00-41-4456Bakrbeb encounter qifiltdni98/14/2021 Office Visit Gastroenterology Leah Martins MD [address] [facility] [place] [address] [facility] GastroenterologyStart: 03-04-2021 End: 51-99-3498Gpyjryn encounter ygjjyaabi90/09/2021 Appointment Stress LabMTHZ Stress LabStart: 02-09-2021 End: 58-37-3115Pxkrvjh encounter ttfisficx28/17/2021 Office Visit Primary Care Vivian Lemos, WILDLIFE 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 [employer] [address] [facility] Emelyn [facility] MEDICAL CENTERBRIGIDGREENVILLE, [place] [phone] [facility] TiffinStart: 01-28-2021 End: 02-61-7033Vbamva Visit01/28/2021 Office Visit Urology Florida Everett MD [address] [facility] [address] [facility], [address] [place], [place] [phone] [facility] Part of [facility] Hospitaltart: 11-21-2020 Diabetic microalbuminuria testDiabetic microalbuminuria testMerPerfectus Biomed Work Phone: comment on above:Postponed from 09/25/2019 (Not Indicated)Start: 92-86-5112Yznpluojbh measurementCreatinine monitoringEast [facility] Hospital Health- [place], [place]Start: 27-30-9938Pyukzmolvp monitoringCreatinine monitoringMerPerfectus Biomed Work Phone: start: 32-70-6338Pbfexrnfi monitoringPotassium monitoringWayne HospitalPerfectus Biomed Work Phone: start: 22-46-1917Vpuqpsad retinal examDiabetic retinal examBON SECSELECT MEDICAL SPECIALTY HOSPITAL - CLEVELAND-FAIRHILLStart: 69-74-5064Rucuwtwy screeningDiabetic retinal examBon Wilson HealthStart: 09-11-2020 End: 29-11-5867Zspsau Visit09/11/2020 Office Visit Primary Care Might, Vivian Combs, WILDLIFE 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 [employer] [address], [place] [phone] [facility] Primary Care SolsberryStart: 01-45-2708NNnS/Tdap/Td vaccine (1 - Tdap) DTaP/Tdap/Td vaccine (1 - Tdap)[facility] Phone: comment on above:Postponed from 02/29/1992 (Patient Refused)Postponed from 02/29/1984 (Patient Refused)Start: 29-14-0251LEB screen HIV screenMerPerfectus Biomed Work Phone: comment on above:Postponed from 02/29/1988 (Patient Refused)Start: 77-35-1048TKN screeningHIV screenWayne Hospitalcy HealthUNIVERSITY HEALTH LAKEWO[facility], ALComment on above:Postponed from 02/29/1988 (Patient Refused)Start: 28-59-0844Ojqgyptdvu monitoringCreatinine monitoringMercy Health- [place], KYStart: 04-26-8585Yrhbpigkq monitoringPotassium monitoringMer Health- [place], KYStart: 06-11-2020[object Object]Diabetic foot examWooster Community Hospital, KYStart: 88-80-3086Jqurfqhf foot examinationDiabetic foot examWooster Community Hospital, KYStart: 52-06-4319Zxflllmzeq monitoringCreatinine [facility], KYStart: 17-78-5627Hfmow panel Lipid screenWooster Community Hospital, KYStart: 09-45-3332Wvjta screenLipid screenWooster Community Hospital, KYStart: 20-27-4234Zmcckgmpo monitoringPotassium [facility], KYStart: 12-91-5365Pwnoqjuz cancer screenCervical cancer screenWooster Community Hospital, KYStart: 16-20-6524Hviloxily for malignant neoplasm of cervixBON SECOU[facility] CLEVEL[facility] CLIN[facility] MENTOR HOSPITALStart: 33-31-6495Hkscwbfoj vaccinationFlu vaccine (#1)[facility], KYStart: 57-08-5835EjE2f (Bld) [Mass fraction]A1C test (Diabetic or Prediabetic)[facility], ALStart: 47-72-8267Ljrckjvojr monitoringCreatinine monitoringWooster Community Hospital, KYStart: 71-00-7254Lqexxegit monitoringPotassium [facility], KYStart: 03-12-2020 End: 05-31-2672Lnriff VisitMer Primary Care TiffinStart: 84-66-8688Sqiwnnwi retinal examDiabetic retinal examWooster Community Hospital, KYComment on above:Postponed from 01/02/2019 (Patient Refused)Start: 01-46-8763Nxkbuuytj B Vaccine (1 of 3 - Risk 3-dose series)Hepatitis B Vaccine (1 of 3 - Risk 3-dose series)[facility], ALComment on above:Postponed from 02/29/1992 (Patient Refused)Start: 01-28-2020 End: 78-15-3378Aiwpmy VisitTiffin UrologyStart: 88-57-8044J2F test (Diabetic or Prediabetic)A1C test (Diabetic or Prediabetic)[facility], KYStart: 10-15-2019 End: 72-17-8335Januyv Visit10/15/2019 Office Visit Cardiology Nathan Ardon MD [address] [place] [address] [place] [address] [phone] [facility] CARDIOLOGYStart: 61-63-1591Vmbmpzoj microalbuminuria testDiabetic microalbuminuria testStrasburg, KYStart: 09-10-2019 End: 10-56-1841Xbcekc Visit09/10/2019 Office Visit Primary Care Vivian Lemos, WILDLIFE 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 [employer] [address] [place] [address] [phone] [facility] HospitalfinStart: 09-04-2019 End: 73-11-4082Lvqicl Visit09/04/2019 Office Visit Otolaryngology Hever Olivera PA [address] [place] [address] [facility] Throat SpecialistsStart: 93-08-6987I4T test (Diabetic or Prediabetic)A1C test (Diabetic or Prediabetic)[place], [place] Start: 55-50-1118JOiF/Tdap/Td vaccine (1 - Tdap)DTaP/Tdap/Td vaccine (1 - Tdap) [place], KYComment on above:Postponed from 02/29/1992 (Patient Refused) Postponed from 02/29/1984 (Patient Refused)Start: 02-91-7458ONM screenHIV screen [place], KYComment on above:Postponed from 02/29/1988 (Patient Refused) Start: 08-22-2019 End: 90-25-7724Cjtgybnvbec03/27/2019 Appointment [facility] Nuclear MedicineStart: 21-39-0279Rqdbj screenLipid screenStrasburg, [place] Start: 08-16-2019 End: 66-27-9587Psckgeswbrw51/21/2019 Appointment [facility] Nuclear MedicineStart: 08-03-2019 End: 97-87-2453Smrzeuknghp89/08/2019 Appointment [facility] UltrasoundStart: 07-26-2019 End: 13-88-7979Ywhmgz Visit07/26/2019 Office Visit OtolaryngologHever Green PA [address] [place] [address] [phone] [facility] Throat SpecialistsStart: 06-11-2019 End: 03-08-5007Pydsnb Visit06/11/2019 Office Visit Primary Care Vivian Lemos, JOSSE - SUPERVISOR [employer] [address] [place] [address] [phone] [facility] HospitalfinStart: 30-68-1785E0U test (Diabetic or Prediabetic)A1C test (Diabetic or Prediabetic)[facility]: 73-55-2389Icnfpvrjv vaccinationFlu vaccine (#1)[facility]: 05-10-2019[object Object] Diabetic foot examJoint Township District Memorial Hospital: 23-03-5319Iemocquxeski 0-64 years Vaccine (2 - PCV)Pneumococcal 0-64 years Vaccine (2 - PCV)[facility]: 69-94-9300Wblcqgignasu 0-64 years Vaccine (2 of 2 - PCV) Pneumococcal 0-64 years Vaccine (2 of 2 - PCV)[facility]: 99-63-0968Shbtgzooxkkb 50+ years Vaccine (2 of 2 - PCV)Pneumococcal 50+ years Vaccine (2 of 2 - PCV)[facility]: 64-25-8808Sktquejqp for malignant neoplasm of colonChillicothe VA Medical Centerart: 24-69-0374Zojfejkyz for malignant neoplasm of cervixHPV (without or with Pap)[facility] Systemart: 23-24-2985QBdB/Tdap/Td vaccine (1 - Tdap)DTaP/Tdap/Td vaccine (1 - Tdap)[facility] Systemart: 52-74-5042Jaobnqqns B vaccine (1 of 3 - 19+ 3-dose series)Hepatitis B vaccine (1 of 3 - 19+ 3-dose series)[facility] Start: 28-53-8463Qqecz screening for proteinDiabetic Alb to Cr ratio (uACR) test [facility] Systemart: 92-13-7173YIVFY-19 Vaccine (1)COVID-19 Vaccine (1)[employer] Phone: start: 10-47-5652FZR screeningHIV screenWhite Hospital Start: 52-43-0955Ubcrnkbguj MonitoringDepression MonitoringWhite HospitalStart: 70-17-6658Bwtnajdru C screeningHepatitis C screenWooster Community Hospital, [place] End: 90-65-6581JOZDD ACID, QUANTAMINO ACID, QUANT Lab Routine Once for 1 Occurrences starting 12/28/2019 until 12/28/2019[place], KYComment on above:Once for 1 Occurrences starting 12/28/2019 until 12/28/2019AMINO ACID, QUANTAMINO ACID, QUANT Lab Routine 12/28/2019 2:54 PM EDWVUMedicine [facility], [place] End: 12-19-3597Phit-smooth muscle antibodyAnti-smooth muscle antibody Lab Routine Abnormal LFTs 1 Occurrences starting 03/11/2021 until 03/11/2021[facility] [employer] Phone: comment on above:1 Occurrences starting 03/11/2021 until 03/11/2021 End: 76-48-0584Ryydl Metabolic Panel w/ Reflex to MGBasic Metabolic Panel w/ Reflex to MG Lab Routine Daily for 5 Days starting 06/11/2023 until 06/15/2023, 4 completedTUBA CITY REG[facility] [employer] [facility] REHABILITATIONThinkorswim GroupJefferson Memorial Hospital on above:Daily for 5 Days starting 06/11/2023 until 06/15/2023, 4 completed End: 31-93-6011Smdub Metabolic Panel w/ Reflex to MGBasic Metabolic Panel w/ Reflex to MG Lab Routine Daily for 5 Days starting 05/30/2025 until 06/03/2025, 2 completedBon [facility] General HospitalShiny MediaJefferson Memorial Hospital on above:Daily for 5 Days starting 05/30/2025 until 06/03/2025, 2 completedBlood Culture 1Blood Culture 1 Microbiology STAT 06/10/2023 11:30 PM [facility] [employer] End: 52-36-4251J-reactive proteinC-Reactive Protein Lab Routine Q48H for 3 Days starting 07/25/2024 until 07/27/2024, 1 [facility] HospitalShiny MediaJefferson Memorial Hospital on above:Q48H for 3 Days starting 07/25/2024 until 07/27/2024, 1 completed End: 53-40-0527Hrdxadu stress test EKG study TypeEcho stress test Echocardiography Routine Essential hypertension Chest discomfort Hyperlipidemia, unspecified hyperlipidemia type Tobacco abuse 1 Occurrences starting 03/03/2021 until 03/03/2021[facility]: comment on above:1 Occurrences starting 03/03/2021 until 03/03/2021 End: 87-17-9882YsvgpzsinCrsufbjdz Lab Routine Once for 1 Occurrences starting 12/28/2019 until 12/28/2019[facility] [place], [place]:Once for 1 Occurrences starting 12/28/2019 until 12/28/2019CarnitineCarnitine Lab Routine 12/28/2019 2:54 PM [facility] [place] End: 49-79-9400MAI W Auto Differential panel - BloodCBC auto differential Lab Routine Daily for 5 Days starting 06/11/2023 until 06/15/2023, 4 [facility]ando[facility] Hospital on above:Daily for 5 Days starting 06/11/2023 until 06/15/2023, 4 completed End: 78-80-7990YGZ W Auto Differential panel - BloodCBC auto differential Lab Routine Daily for 5 Days starting 05/30/2025 until 06/03/2025, 2 [employer] [facility] [email or web address] Memorial Hospital on above:Daily for 5 Days starting 05/30/2025 until 06/03/2025, 2 completed End: 21-86-3653Utgxspfovi cardiac monitoring, >2 up to 14 daysContinuous cardiac monitoring, >2 up to 14 days Cardiac Services Routine Syncope and collapse Preop cardiovascular exam Dizziness Primary hypertension Mixed hyperlipidemia Tobacco abuse counseling1 Occurrences starting 10/08/2022 until 10/08/2022ON [employer] Phone: comment on above:1 Occurrences starting 10/08/2022 until 10/08/2022ontinuous pulse oximetryPulse oximetry, continuous Respiratory Care Routine Every 4hr until discontinued starting 06/11/2023ON [facility]andoJeff[facility] Hospital on above:Every 4hr until discontinued starting 06/11/2023 End: 14-10-6981UDZTE-19COVID-19 Lab Routine Preoperative testing 1 Occurrences starting 09/30/2020 until 09/30/2020[facility] [place], [place] on [place]:1 Occurrences starting 09/30/2020 until 5909FUTNL-72QAYUR-71 Lab Routine Preoperative testing 09/30/2020 1:20 PM [facility] [place], [place] End: 30-57-6789RJDBB-19[employer] Work Phone: comzptp on above:Once for 1 Occurrences starting 11/26/2021 until 11/26/2021 End: 22-29-5317WHSRG-19BON Zalando Work Phone: comyjpu on above:Once for 1 Occurrences starting 04/09/2022 until 04/09/2022 End: 24-98-2132OPQLA-19BON Zalando Work Phone: comxojy on above:Once for 1 Occurrences starting 09/03/2022 until 09/03/2022 End: 82-26-7962SLAOL-19BON Zalando Work Phone: comment on above:Once for 1 Occurrences starting 09/10/2022 until 09/10/2022 End: 95-79-9644Cuxcl-19 AmbulatoryCovid-19 Ambulatory Lab Routine Once for 1 Occurrences starting 07/08/2020 until 07/08/2020[facility], [place]Comment on above:Once for 1 Occurrences starting 07/08/2020 until 07/08/2020Covid-19 AmbulatoryCovid-19 Ambulatory Lab Routine 07/08/2020 1:06 [facility] [place] End: 81-09-2691KN Ankle - left WO contrastBon Secours Mercy HealthComment on above:Once for 1 Occurrences starting 07/26/2024 until 07/26/2024 End: 03-16-9952OJ Foot - left WO contrastBon Secours Mercy HealthComment on above:Once for 1 Occurrences starting 07/26/2024 until 07/26/2024 End: 65-24-9668SC Foot - left WO contrastBon Secours Mercy HealthComment on above:1 Occurrences starting 08/31/2024 until 08/31/2024 End: 41-56-5935QD Sinuses W contrast IVCT SINUS W CONTRAST Imaging Routine Recurrent pansinusitis 1 Occurrences starting 07/02/2024 until 07/02/2024on [email or web address] on above:1 Occurrences starting 07/02/2024 until 07/02/2024 End: 10-65-9257PW Sinuses WO contrastBon [email or web address] on above:1 Occurrences starting 07/17/2025 until 07/17/2025 End: 52-90-7216OJM Abdominal vessels WO and W contrast IVBon [email or web address] on above:1 Occurrences starting 06/14/2025 until 06/14/2025 Culture, Blood 2Culture, Blood 2 Microbiology STAT 06/10/2023 11:40 PM EDTBON Zalando End: 56-19-5363Hobzzda, UrineCulture, Urine Microbiology Routine Renal stones Renal colic 1 Occurrences starting 01/28/2021 until 01/28/2021[facility] HospitalPerfectus Biomed Work Phone: comment on above:1 Occurrences starting 01/28/2021 until 1Culture, UrineCulture, Urine Microbiology Routine Renal stones Renal colic 01/28/2021 11:00 AM [employer]Friend[employer] Work Phone: End: 02-65-6166MHU Skeletal system.axial Views for bone densityBon [email or web address] on above:1 Occurrences starting 05/02/2025 until 05/02/2025EKG 12 LeadEKG 12 Lead ECG Routine 08/06/2022 2:34 PM ESTBON Zalando Work Phone: eKG 12 LeadEKG 12 Lead ECG STAT 08/06/2022 5:11 PM EST [facility] [employer] Phone: End: 11-87-9927Ezddpm 8 AssayFactor 8 Assay Lab Routine Once for 1 Occurrences starting 12/28/2019 until 12/28/2019[facility] [place], [place] on above:Once for 1 Occurrences starting 12/28/2019 until 12/28/2019Factor 8 AssayFactor 8 Assay Lab Routine 12/28/2019 2:54 PM [facility] [place] End: 81-66-4358MzlqeloeagYbpfcvdprt Lab Routine Once for 1 Occurrences starting 12/28/2019 until 12/28/2019[facility] TIENComment on above:Once for 1 Occurrences starting 12/28/2019 until 12/28/2019FibrinogenFibrinogen Lab Routine 12/28/2019 2:54 PM [facility] [place] End: 98-18-8786Exznmps [Mass/volume] in Serum or PlasmaPOCT Glucose Point of Care Testing STAT One Time for 1 Occurrences starting 12/08/2022 until 023[facility] Mass [employer] WHITE HOSPITALComment on above:One Time for 1 Occurrences starting 12/08/2022 until 3Glucose [Mass/volume] in Serum or PlasmaPOCT Glucose Point of Care Testing STAT As Needed until discontinued starting 06/11/2023ON [facility] HOSPITALAloricaComment on above:As Needed until discontinued starting 3Glucose [Mass/volume] in Serum or PlasmaBON [facility] [employer] [employer] Comment on above:As Needed until discontinued starting 34X Daily (AC & HS) until discontinued starting 06/11/2023 End: 45-78-9944Dozncls [Mass/volume] in Serum or PlasmaBon [facility] [employer] Work Phone: Comment on above:One Time for 1 Occurrences starting 07/23/2024 until 44X Daily (AC & HS) until discontinued starting 07/24/2024s Needed until discontinued starting 07/23/2024Glucose [Mass/volume] in Serum or PlasmaPOCT Glucose Point of Care Testing STAT As Needed until discontinued starting 09/14/2024on [facility] [employer] Work Phone: Comment on above:As Needed until discontinued starting 09/14/2024Glucose [Mass/volume] in Serum or PlasmaPOCT Glucose Point of Care Testing Routine 4X Daily (AC & HS) until discontinued starting 05/30/2025on [email or web address] on above:4X Daily (AC & HS) until discontinued starting 05/30/2025 End: 55-43-7844Yvjjhkd [Mass/volume] in Serum or PlasmaPOCT Glucose Point of Care Testing STAT One Time for 1 Occurrences starting 07/23/2025 until [facility] [email or web address] Work Phone: Comment on above:One Time for 1 Occurrences starting 07/23/2025 until 07/23/2025 End: 18-98-6214JaC7k (Bld) [Mass fraction]Hemoglobin A1C Lab Routine Once for 1 Occurrences starting 08/13/2020 until 08/13/2020Way[facility] HospitalCisco, [place]Comment on above:Once for 1 Occurrences starting 08/13/2020 until 08/13/2020HbA1c (Bld) [Mass fraction]Hemoglobin A1C Lab Routine 08/13/2020 11:47 AM [facility] [place], [place] End: 08-72-8193Snsagglsjf A1c/Hemoglobin.total in [employer] Work Phone: comment on above:1 Occurrences starting 09/21/2022 until 09/21/2022 End: 98-49-9196Wdsehknvnp A1c/Hemoglobin.total in [employer] Comment on above:Once for 1 Occurrences starting 06/08/2024 until 06/08/2024 End: 69-75-4595Qhsajdakwe A1c/Hemoglobin.total in BloodHemoglobin A1C Lab Routine One Time for 1 Occurrences starting 07/14/2024 until 07/14/2024on [email or web address] Work Phone: comment on above:One Time for 1 Occurrences starting 07/14/2024 until 07/14/2024 End: 14-35-3030Qnfqmdhrjf A1c/Hemoglobin.total in [employer] Comment on above:Once for 1 Occurrences starting 10/11/2024 until 10/11/2024 End: 21-86-4079Uzhgytqdo A Antibody, TotalHepatitis A Antibody, Total Lab Routine Abnormal LFTs 1 Occurrences starting 03/11/2021 until 03/11/2021[employer] Phone: comment on above:1 Occurrences starting 03/11/2021 until 03/11/2021Hepatitis A Antibody, TotalHepatitis A Antibody, Total Lab Routine Abnormal LFTs 03/11/2021 12:57 PM [employer] Phone: End: 47-99-5501Bblnwofxw B surface antibodyHepatitis B surface antibody Lab Routine Abnormal LFTs 1 Occurrences starting 03/11/2021 until 03/11/2021[facility]Embed[facility] Phone: comment on above:1 Occurrences starting 03/11/2021 until 03/11/2021Home BIPAP or CPAPHome BIPAP or CPAP Respiratory Care Routine QHS until discontinued starting 06/11/2023ON ZalandoComment on above:QHS until discontinued starting 06/11/2023 End: 14-87-9447Blku sleep studyOberlin sleep study [facility] Routine Tired Fatigue, unspecified type LAYNE (obstructive sleep apnea)1 Occurrences starting 11/23/2022 until 11/23/2022ON [employer] Phone: comment on above:1 Occurrences starting 11/23/2022 until 11/23/2022 End: 21-31-7077Ursmlcpvtjrgbai, QuantitativeImmunoglobulins, Quantitative Lab Routine Abnormal LFTs 1 Occurrences starting 03/11/2021 until 03/11/2021[facility]: comment on above:1 Occurrences starting 03/11/2021 until 03/11/2021Immunoglobulins, QuantitativeImmunoglobulins, Quantitative Lab Routine Abnormal LFTs 03/11/2021 12:57 PM [employer] Phone: End: 76-23-8250DJXNIAKA PACU OXYGEN THERAPY PROTOCOLInitiate PACU Oxygen Therapy Protocol Respiratory Care Routine Continuous until discontinued starting 5Bon [employer] Phone: comment on above:Continuous until discontinued starting 07/23/2025 End: 47-38-9733WDPDRBBZXTRXG TESTINGMISCELLANEOUS TESTING Lab Routine Once for 1 Occurrences starting 12/28/2019 until 12/28/2019[facility] [place] [place] above:Once for 1 Occurrences starting 12/28/2019 until 12/28/2019MISCELLANEOUS TESTINGMISCELLANEOUS TESTING Lab Routine 12/28/2019 4:12 PM [place], [place] End: 32-90-8301QLVOKWHSNWEUU ANTIBODIES, M2, IGGMITOCHONDRIAL ANTIBODIES, M2, IGG Lab Routine Once for 1 Occurrences starting 03/11/2021 until 03/11/2021[facility] Phone: comment on above:Once for 1 Occurrences starting 03/11/2021 until 03/11/2021MITOCHONDRIAL ANTIBODIES, M2, IGGMITOCHONDRIAL ANTIBODIES, M2, IGG Lab Routine 03/11/2021 12:57 PM [employer] Phone: End: 98-81-6666HKKIKLVCSRYMF ANTIBODY W/REFLEX TITERMITOCHONDRIAL ANTIBODY W/REFLEX TITER Lab Routine Abnormal LFTs 1 Occurrences starting 03/11/2021 until 03/11/2021[facility] Phone: comment on above:1 Occurrences starting 03/11/2021 until 03/11/2021 End: 75-03-5343JM Lumbar spine WO contrastBon Secours ChirpVisionComment on above:1 Occurrences starting 04/12/2025 until 04/12/2025 End: 58-93-1058CV Shoulder - left WO contrastBon Secours OnVantage HealthComment on above:1 Occurrences starting 07/29/2025 until 07/29/2025 End: 18-26-4143BS Shoulder - right WO contrastBon Secours ChirpVisionComment on above:1 Occurrences starting 07/29/2025 until 07/29/2025Nasal Cannula Oxygen Nasal Cannula Oxygen Respiratory Care Routine Daily until discontinued starting 06/11/2023ON SECAloricaComment on above:Daily until discontinued starting 06/11/2023 End: 98-86-2873GW GASTRIC EMPTYINGNM GASTRIC EMPTYING Imaging Routine Generalized abdominal pain 1 Occurrences starting 08/16/2019 until 08/16/2019 [place], [place]:1 Occurrences starting 08/16/2019 until 08/16/2019 End: 78-89-3636Qjwdpfj Ab [Titer] in Serum by ImmunofluorescenceANA Lab Routine Abnormal LFTs 1 Occurrences starting 03/11/2021 until 03/11/2021[facility]Embed[facility] Phone: comment on above:1 Occurrences starting 03/11/2021 until 03/11/2021Nuclear Ab [Titer] in Serum by ImmunofluorescenceANA Lab Routine Abnormal LFTs 03/11/2021 12:57 PM [employer] Phone: Oxygen therapy [Minimum Data Set]Initiate Oxygen Therapy Protocol Respiratory Care Routine As Needed until discontinued starting 06/11/2023 [facility] on above:As Needed until discontinued starting 06/11/2023Oxygen therapy [Minimum Data Set]Initiate Oxygen Therapy Protocol Respiratory Care Routine As Needed until discontinued starting 06/27 [email or web address] Memorial Hospital on above:As Needed until discontinued starting 07/23/2024Oxygen therapy [Minimum Data Set]Initiate Oxygen Therapy Protocol Respiratory Care Routine As Needed until discontinued starting 08/27 [email or web address] [facility] Hospital on above:As Needed until discontinued starting 09/14/2024Oxygen therapy [Minimum Data Set]Initiate Oxygen Therapy Protocol Respiratory Care Routine As Needed until discontinued starting 08/27 [email or web address] [facility] Hospital on above:As Needed until discontinued starting 09/14/2024Oxygen therapy [Minimum Data Set]Initiate Oxygen Therapy Protocol Respiratory Care Routine Daily until discontinued starting 05/30/2025 [facility] [email or web address] Memorial Hospital on above:Daily until discontinued starting 05/30/2025Oxygen therapy [Minimum Data Set]Initiate Oxygen Therapy Protocol Respiratory Care Routine As Needed until discontinued starting 07/23/2025 [email or web address] Memorial Hospital on above:As Needed until discontinued starting 07/23/2025Pathology studySurgical Pathology Lab Routine Charcot ankle, left Diabetes (HCC) Release Upon Ordering for 1 Occurrences starting 09/14/2024on [email or web address] Memorial Hospital on above:Release Upon Ordering for 1 Occurrences starting 09/14/2024ositive Expiratory Pressure TherapyBON Zalando [facility] on above:4X Daily until discontinued starting 06/11/2023s Needed until discontinued starting 06/11/2023 End: 70-62-8289Eceqs study with PAP titrationSleep study with PAP titration Sleep Center Routine LAYNE (obstructive sleep apnea) 1 Occurrences starting 01/19/2023 until 01/19/2023ON [employer] Phone: comment on above:1 Occurrences starting 01/19/2023 until 01/19/2023 End: 55-85-8331Ukdylg Muscle Antibody QuantSmooth Muscle Antibody Quant Lab Routine Once for 1 Occurrences starting 03/11/2021 until 03/11/2021[facility]: comment on above:Once for 1 Occurrences starting 03/11/2021 until 03/11/2021mooth Muscle Antibody QuantSmooth Muscle Antibody Quant Lab Routine 03/11/2021 12:57 PM [facility] [employer] Phone: End: 01-72-7900Udazwg Muscle Antibody QuantBON [employer] Phone: Comment on above:1 Occurrences starting 07/19/2022 until 07/19/2022 End: 67-11-8659OXGJJMIE REJECTIONCopper Springs East Hospital [email or web address] on above:Once for 1 Occurrences starting 05/29/2025 until 05/29/2025Surgical PathologySurgical Pathology Lab Routine Screening for colon cancer Release Upon Ordering for 1 Occurrences starting 12/08/2022 [employer] Phone: Comment on above:Release Upon Ordering for 1 Occurrences starting 12/08/2022Vibratory Airway ClearanceTUBA CITY REGIONAL [facility]ALTH CARE CORPORATION ZalandoComment on above:As Needed until discontinued starting 06/11/2023TID until discontinued starting 06/11/2023 Immunizations Immunization DateImmunizationNotesCare XhjxfwiaXbtvkzyr25-93-7773xzbsot vaccine recombinantSjoaquin Segundo MDVALLEY HEALTH 2359 MediaXYNYDI00-39-9902olfowb recombinant adjuvanted vaccine (SHINGRIX) 50 MCG/0.5ML SUSR Laura Segundo MDSENTARA NORTHERN VIRGINIA MEDICAL CENTERThinkorswim GroupQDRDIB69-94-5227krzaarpkq, injectable, quadrivalent, contains preservative Mth [facility] HospitalKqnmtj05-78-6330rycwjubjb, injectable, quadrivalent, preservative freeBrett Parkwood HospitalCiobke02-18-4452yokniicqb, injectable, quadrivalent, preservative freeWVUMedicine Harrison [facility] Hospital, DQ13-41-6226ggqlscfkabou polysaccharide vaccine, 23 valentBreMadison HealthIbgfig13-33-3555jlgxfxqgm virus vaccine, unspecified formulationCincinnati Shriners HospitalGyzurv19-12-7700vrnrjvmqo virus vaccine, unspecified formulationCincinnati Shriners Hospital12-04-2009novel tgfffnfjz-J9K3-96, preservative-free, injectableWVUMedicine Harrison Community Hospital, [place] Payers DatePayer CategoryPayerPolicy [id number] 1.2.840.109657.1.13.2[id number]-kps [id number] [facility] PPO [id number] 09/26/2021-Present [phone] [address] [place], [place] [id number] 1.2.840.928433.1.13.239.2.7.3.319337.07527-03-9205Vlxnxtz Health [id number] 1.2.840.624859.1.13.239.2.7.3.458469. UnknownMEDICAL MUTUAL MEDICAL MUTUAL [address] xxxxxxxxxxxx 2017-Present [phone] [address] [place] [address]ofnhdfkzpnjz 1.2.840.593998.1.13.239.2.7.3.176[id number] 2.16.840.1.370671.3.579.2.39551-62-1397Birnumy0162651 2.16.840.1.726383.3.579.2.22359-65-7409Roatoub0237064 2.16.840.1.739241.3.579.2.38365-69-0441Xwllaxd6032198 2.16.840.1.321792.3.579.2.92991-45-4727Fcnpetn6679701 2.16.840.1.265233.3.579.2.12003-69-0514Rzakald0523361 2.16.840.1.866355.3.579.2.64407-19-2944Kabwbqg3943379 2.16.840.1.708312.3.579.2.77800-38-9376Zyfvira4447251 2.840.1.889398.3.579.2.55162-25-9897Xlgcsof9204097 2.840.1.199775.3.579.2.56973-55-1876Yochcvt2566898 2.0.1.314898.3.579.2.04496-74-2339Oaerxgr5323684 2.840.1.084115.3.579.2.51103-00-9763Nsjidxl2947347 2.0.1.785308.3.579.2.42782-01-9673Rkgmilq7598784 2.840.1.119296.3.579.2.81404-24-7456Ixchdfg0114726 2.840.1.248926.3.579.2.45772-39-5047Kibbcjr9346129 2.840.1.219435.3.579.2.17757-19-7346Kyskkxm9273056 2.840.1.778472.3.579.2.21936-77-1645Ycvbatf9079748 2.16840.1.655269.3.579.2.75391-02-8906Rrwhppi91754128 2.16840.1.033942.3.579.2.57335-51-3047Jbgfmxo22296171 2.16.840.1.331478.3.579.2.48604-13-2981Xtejejn86167757 2..840.1.831994.3.579.2.15823-87-0188Jaurbfq54623343 2.840.1.902300.3.579.2.51800-49-2451Kzqcjiy356468927 2.840.1.949685.3.579.2.99660-93-3457Riczagl056415944 2.0.1.019435.3.579.2.09017-29-2283Zdhjhgv888076848 2.0.1.458785.3.579.2.62211-32-6996Qyvupyi745096141 2.0.1.462000.3.579.2.25933-08-9967Bgpmzae790758266 2.0.1.682993.3.579.2.71048-64-6646Mdecrsr146219444 2..1.891436.3.579.2.55904-52-9484Cnvyava87443301 2.840.1.900639.3.579.2.65700-43-3059Jogkeie46805482 2.0.1.037489.3.579.2.42346-05-5416Maqdcxx48676684 2.840.1.860570.3.579.2.23209-85-9460Ndzrpzv30784808 2.840.1.820179.3.579.2.71245-01-4378Pfpdwyo22837994 2.840.1.353223.3.579.2.91044-98-3778Akxwzhg20870561 2.16.840.1.035465.3.579.2.74173-13-5558Sviqsae65613291 2.840.1.219287.3.579.2.77075-93-9864Jcfpbtg20218927 2.840.1.728175.3.579.2.07072-37-4894Sguxyht40408730 2.840.1.113197.3.579.2.83991-37-5104Nwriwvo01720302 2.840.1.161015.3.579.2.37004-15-9590Frqsvkh20301802 2.0.1.034103.3.579.2.63157-22-0003Esvkaja94158132 2.0.1.568432.3.579.2.73740-79-6807Gblejil64520278 2..1.835119.3.579.2.15092-45-1594Zcjlgfq81176766 2.0.1.039135.3.579.2.91377-59-2093Lacquhc89527295 2.0.1.061177.3.579.2.84076-72-2719Ldkrert92357540 2.0.1.711673.3.579.2.30079-06-7026Ovwnldc47127348 2.0.1.699395.3.579.2.58065-35-8947Uwfpsup75795839 2.0.1.218499.3.579.2.16100-42-5946Idmsokg35859349 2.840.1.805353.3.579.2.45380-62-4930Qzezbdo17208884 2.840.1.039445.3.579.2.57357-89-9334Jlghxmt33523845 2.16.840.1.642400.3.579.2.10650-47-8096Wwnfahl49943052 2..840.1.123927.3.579.2.69950-97-9823Hsoarea52009772 2..840.1.245854.3.579.2.28224-95-9112Ikrwukd65418031 2.840.1.288148.3.579.2.20316-23-5570Fsmsqmq15279180 2.840.1.557655.3.579.2.85630-42-9855Cwxciwu53210070 2.0.1.996201.3.579.2.30803-05-0428Hrglfpw57253315 2..1.067921.3.579.2.27157-35-0502Brkewfd03482225 2.0.1.534208.3.579.2.05747-11-1415Ajezcxk20815574 2.0.1.793621.3.579.2.96354-94-4251Xeiotml98689564 2.840.1.674248.3.579.2.71376-71-8929Zsyqnym74430936 2.0.1.635226.3.579.2.38390-79-7096Vdgqbzq96702913 2.840.1.773736.3.579.2.77159-96-6165Cfhiajc53565865 2.840.1.777654.3.579.2.44854-27-3182Hwttjmx29784286 2.840.1.493929.3.579.2.19329-42-0976Mjheihn23201524 2.840.1.324555.3.579.2.58907-40-3520Fgdxhty34328623 2.840.1.752910.3.579.2.08554-72-4103Sazgbhp28797808 2.0.1.775817.3.579.2.08385-69-4676Dqwsxzj11409176 2.0.1.482343.3.579.2.77624-44-9565Whquxph86119373 2.0.1.104814.3.579.2.64781-94-0173Zybacnn78511930 2.0.1.925982.3.579.2.34589-30-3499Exfimlh31651001 2..1.023687.3.579.2.50822-62-1541Vrovfqc44057796 2..1.548527.3.579.2.54554-03-1579Gaajtyw00633495 2..1.016355.3.579.2.29090-23-2014Hhjcrnm01034443 2.0.1.096549.3.579.2.69093-05-8121Uvjfvvw63644765 2..1.968662.3.579.2.39491-02-4660Dksdidk60809055 2..1.862650.3.579.2.93214-56-1015Zinbckk57765935 2.0.1.336231.3.579.2.66569-13-8249Bzcmoua34451720 2..1.711536.3.579.2.27521-69-9272Kyonbog53149314 2.0.1.898215.3.579.2.61087-77-7287Hxpycmk32497633 2.0.1.239527.3.579.2.02039-19-0131Zvwkncu27900082 2.840.1.663718.3.579.2.12796-41-0997Hoqfbzz59055673 2.840.1.996407.3.579.2.72763-38-1666Zxfnclx72104869 2.840.1.530269.3.579.2.94740-85-8925Gmmsgfg76908705 2.840.1.464455.3.579.2.89787-42-9376Zruuntn43209698 2.840.1.297343.3.579.2.91929-48-1566Abdalbh43618242 2.0.1.700622.3.579.2.93871-86-7295Iwbwgkw27539391 2..1.528224.3.579.2.19018-89-6111Dujnhsi98211742 2.0.1.564457.3.579.2.25442-20-3758Ytjwaru12035003 2.0.1.684390.3.579.2.36481-45-8618Xwqafrm53157167 2.0.1.168212.3.579.2.02174-25-5817Ddobmmw47032713 2.0.1.141063.3.579.2.77594-70-0645Gfndnlo39165260 2.0.1.776100.3.579.2.39019-40-1013Jawzeal60016832 2.0.1.952313.3.579.2.03058-54-8628Wwzkgjq70528817 2.840.1.643127.3.579.2.70769-84-4832Qsubsjt95255320 2.840.1.320299.3.579.2.70828-70-3563Fbhjymu59238021 2.16.840.1.371725.3.579.2.83720-64-7539Nnoekyc023718414 2.16.840.1.613156.3.579.2.68053-09-6122Fnewlgv406602805 2.16.840.1.935616.3.579.2.64382-15-2957Wopdpwj750338547 2.840.1.758850.3.579.2.48040-80-3802Eircloa840486352 2.840.1.110732.3.579.2.55492-24-5681Jrjuqky086934475 2.840.1.653510.3.579.2.15209-99-1867Zhpifty248435273 2.840.1.463224.3.579.2.14034-70-2035Mzeqoex326492961 2.840.1.185121.3.579.2.29422-68-8262Ipsyolc723986356 2.840.1.484200.3.579.2.52094-38-4242Gslpgqv879970434 2.840.1.072776.3.579.2.05273-03-8819Qzlisha111305750 2.840.1.258583.3.579.2.03894-22-0434Chqbcse423717424332 1..840.984740.1.13.239.2.7.3.806314.626Swneabr92941557 2.16840.1.740217.3.579.2.152Ccslyaf68937012 2.16840.1.505135.3.579.2.531 Sagzzgb08625804 2.16840.1.290205.3.579.2.614Ydksdqn00027989 2.840.1.701217.3.579.2.531UnknownRegular [id number] y0364g7p-dhe6-2883-w892-5002246390ln Social History DateTypeDetailFacilityStart: 07-13-2019 End: 47-58-3138Vgabewv smoking status NHISCurrent every day [facility]okerWhite [facility] History of tobacco useCigarette SmokerJoint [facility]: [facility]2019 End: 12-31-2093Oivtpuvbgf smoked current (pack per day) - ReportedBON Race Nation [facility]ATIONcW[facility]art: 07-13-2019 End: 49-97-0521Kxonurt intakeNoHILLCREST HOSPITALEducational Services Institute [facility]IL[facility]ATIONcW[facility] Centerart: 16-60-8393Nwn Assigned At BirthNot on fileJoint [facility] District [facility]: 07-26-2019 End: 02-81-0157Yvvxngd intakeCurrent non-drinker of alcohol (finding)[facility]: 06-24-2020 End: 29-48-7042Ypvdpbz use and exposureNever usedJoint [facility] District Memorial Hospital: 07-27-2022 End: 55-79-8744Ynyjiflh to SARS-CoV-2 (event)Not [facility]: 59-16-1878Ecszmao SDOH Zgazauorx5[facility] Work Phone: start: 73-50-6625Nkrtshn SDOH Food Jivbn0Gymbp Health Work Phone: start: 11-84-0668Afbwjkc smoking status NHISSmoker (finding[place] Hospitaltart: [id number] Assigned At [facility] HospitalHow often to you have a drink containing alcohol?NeverBON ZalandoHow many standard drinks containing alcohol do you have on a typical day?Patient does not drinkBON Zalando (I/We) worried whether (my/our) food would run out before (I/we) got money to buy more.DK or RefusedBON ZalandoHas the MySQL gas, oil, or water tamyca threatened to shut off services in your home in past 12MoNoBon [email or web address](I/We) worried whether (my/our) food would run out before (I/we) got money to buy more.Never trueBon [facility] State HospitaleVendor Check [facility] HospitalStart: 11-05-2012 SexFemale (finding)Keagan GlycoVaxyn [facility] HospitalStart: [phone] identity Identifies as female gender (finding)[facility] GlycoVaxyn [facility] HospitalStart: 05-29-2025 End: 23-13-4993Ppxzbbazj beverage intakeLifetime non-drinker (finding)[facility] [email or web address] Medical Equipment Procedure CodeEquipment CodeEquipment Original TextEquipment IdentifierDates1 each by Does not apply route 5 times [id number]: 82-96-1331Fja Fix Fidelia Pt 2 End x9 In Smooth Ss Strl Monica - [id number] Start: 07-23-2024K Wire Fix L6in Dia1.6mm St S Stl 3 Side Dbl Trcr Both End - [id number])NZ5H5, [id number]_imp FDAStart: 07-23-2024K Wire Fix L6in Dia1.6mm St S Stl 3 Side Dbl Trcr Both End - [id number](10)NZ5H4, [id number]_imp FDAStart: 38-46-9571Dfl Fix Fidelia Pt 1 End 32x9 In Thrd Ss Ns Monica - [id number]: 77-40-7631Ranfz Bone Sub 5cc Pure Allosync - [id number]: 32-96-3940Saukcka on above:Description: SAVG8076Qmnfl Bone Sub 2.5cc Allosync Pure - [id number]: 85-07-8770Bvolbzb on above: Description: ZRKM5013Jdzveh Orth S Stl Hi Compr G-Beam Fus Beaming Sys - [id number]: 42-46-1566Oglur Bne Fusion Lg 7.4x70 Mm Ss Strl G- Beam - [id number]: 03-67-5969Pmurt Bne Fusion Sm 5.4x80 Mm Ss Strl G-Beam - [id number]: 02-34-2264Vizjd Bne Fusion Sm 5.4x120 Mm Ss Strl G-Beam - [id number]: 77-18-7783Whdul Bne Fusion Sm 5.4x120 Mm Ss Strl G-Beam - [id number]: 09-14-2024 Functional Status DateAssessmentResultFacilityReston Hospital Center Clinical Notes 12-04-2020 to 08-02-2025 Note Date & [id number] Hospital Discharge instructions* Discharge Instructions* Vanna Laws RN - 08/02/2025 3:04 PM EST Verbally reviewed discharge instructions for care and follow up. Previous print out of these instructions were given with prior treatment.Patient verbalized understanding of these instructions. Today's copy offered and declined. documented in this encounterReston Hospital Center11-07-2025 History of Present illness Narrative* Vanna Laws RN - 08/02/2025 2:30 PM EST Allergy injection flow sheet Identification of own vial of serum Delayed reaction URI with or without wheezing Time of injection Discharge time Yes No No 8170 6721 Injection Schedule Concentration Dose Location Vial Expiration Date Reviewed Red A 1.0ml Left arm Yes Red B 1.0ml Right arm Yes Injection given by: GABRIEL CARLOS Injection site checked upon discharge by: GABRIEL CARLOS Comments: no local Reminder: document all injections in the allergy binder. documented in this encounterReston Hospital Center10-30-2025 Hospital Discharge instructions* Discharge Instructions* Shelley Sunshine RN - 07/25/2025 2:25 PM EDT Verbally reviewed discharge instructions for care and follow up. Previous print out of these instructions were given with prior treatment.Patient verbalized understanding of these instructions. Today's copy offered and declined. documented in this encounterReston Hospital Center10-30-2025 History of Present illness Narrative* Shelley Sunshine RN - 07/25/2025 2:00 PM EDT Allergy injection flow sheet Identification of own vial of serum Delayed reaction URI with or without wheezing Time of injection Discharge time Yes No No 1400 1424 Injection Schedule Concentration Dose Location Vial Expiration Date Reviewed Red#A 1.0ml left yes Red#B 1.0ml right Injection given by: Radha CARLOS Injection site checked upon discharge by: Radha CARLOS Comments: no local Reminder: document all injections in the allergy binder. documented in this encounterReston Hospital Center10-28-2025 History of Present illness Narrative* Sarah Espino [...] to the hospital. documented in this encounterBon [facility] Discharge instructions* Discharge Instructions* Sarah Espino [...] flush the urinary tract.) Call Dr. Everett ([phone]) if you develop: Fever over 100 degrees [...] need an abdominal x-ray afew days before. ([phone]). documented in this encounterReston Hospital Center10-22-2025 Hospital Discharge instructions* Discharge Instructions* Shelley Sunshine RN - 07/17/2025 1:43 PM EDT Verbally reviewed discharge instructions for care and follow up. Previous print out of these instructions were given with prior treatment.Patient verbalized understanding of these instructions. Today's copy offered and declined. documented in this encounterReston Hospital Center10-22-2025 History of Present illness Narrative* Shelley Sunshine RN - 07/17/2025 1:15 PM EDT Allergy injection flow sheet Identification of own vial of serum Delayed reaction URI with or without wheezing Time of injection Discharge time Yes No No 6291 9100 Injection Schedule Concentration Dose Location Vial Expiration Date Reviewed Red#A 1.0ml Left yes Red#B 1.0ml right Injection given by: Radha CARLOS Injection site checked upon discharge by: Radha CARLOS Comments: no local Reminder: document all injections in the allergy binder. documented in this encounterReston Hospital Center10-16-2025 History of Present illness Narrative* Vanna Laws RN - 07/11/2025 2:05 PM EDT Allergy injection flow sheet Identification of own vial of serum Delayed reaction URI with or without wheezing Time of injection Discharge time Yes No No 2628 5333 Injection Schedule Concentration Dose Location Vial Expiration Date Reviewed Red A 1.0ml Left arm yes Red B 1.0ml Right arm yes Injection given by: GABRIEL CARLOS Injection site checked upon discharge by: GABRIEL CARLOS Comments: no local Reminder: document all injections in the allergy binder. documented in this encounterReston Hospital Center09-24-2025 Hospital Discharge instructions* Discharge Instructions* Kelly Boston RN - 06/19/2025 2:01 PM EDT Verbally reviewed discharge instructions for care and follow up. Previous print out of these instructions were given with prior treatment.Patient verbalized understanding of these instructions. Today's copy offered and declined. documented in this encounterReston Hospital Center09-24-2025 History of Present illness Narrative* Kelly Boston RN - 06/19/2025 1:30 PM EDT Allergy injection flow sheet Identification of own vial of serum Delayed reaction URI with or without wheezing Time of injection Discharge time Yes No No 6332 2201 Injection Schedule Concentration Dose Location Vial Expiration Date Reviewed Gold Vial A 0.5 ml Left arm yes Gold Vial B 0.5 ml Right arm yes Injection given by: Mark Boston RN Injection site checked upon discharge by: Mark Boston RN Comments: no local Reminder: document all injections in the allergy binder. documented in this encounterReston Hospital Center09-17-2025 Hospital Discharge instructions* Discharge Instructions* Vanna Laws RN - 06/12/2025 1:47 PM EDT Verbally reviewed discharge instructions for care and follow up. Previous print out of these instructions were given with prior treatment.Patient verbalized understanding of these instructions. Today's copy offered and declined. documented in this encounterReston Hospital Center09-17-2025 History of Present illness Narrative* Vanna Laws RN - 06/12/2025 1:45 PM EDT Allergy injection flow sheet Identification of own vial of serum Delayed reaction URI with or without wheezing Time of injection Discharge time Yes No No 3594 8491 Injection Schedule Concentration Dose Location Vial Expiration Date Reviewed Gold A 0.4ml Left arm yes Gold B 0.4ml Right arm yes Injection given by: GABRIEL CARLOS Injection site checked upon discharge by: GABRIEL CARLOS Comments: no local Reminder: document all injections in the allergy binder. documented in this encounterReston Hospital Center09-05-2025 History of Present illness Narrative* Collette Piña [...] Value Date/Time PHART 7.293 07/02/2013 04:20 PM SAK9BPC 36.8 07/02/2013 04:20 PM PO2ART 70.6 07/02/2013 04:20 PM C5BPYMMR 92.6 07/02/2013 04:20 PM JAZ5MZE 17.4 07/02/2013 04:20 PM PBEA NOT REPORTED [...] Progress Note PATIENT: VIRGIL WARNER CSN #: [id number] : 1975 ADMIT DATE: 05/29/2025 10:44 PM DISCH DATE: RESPONDING PROVIDER #: SHELLEY HUYNH WILDLIFE BIOLOGY TECHNICIAN - [facility] [place] QUERY TEXT: Orthostatic hypotension is documented in [...] Patient awake and resting in bed upon junior technical writer entering the room. Patient is alert and oriented x 4. Vitals and assessment completed, see flowsheets. Patient states that she is hoping to get dischargedtoday . Whiteboard updated. Patient denies any further needs at this time. Call light within reach.Care ongoing. * Sahara Coleman RPH - 05/31/2025 6:52 AM EDT Images from the original note were not included. [facility] Department of Pharmacy Pharmacy Renal Adjustment [...] muscle mass loss Fluid Accumulation: Mild Generalized Vehicle Body Builder Strength: Not Performed Nutrition Assessment: Limited adherence [...] Measures: Height: 167.6 cm (5' 6 ) [place] Body Weight (IBW): 130 lbs (59 kg) [...] Used for Energy Requirements: Current Energy (kcal/day): 6445-9447 (15-18) Weight Used for Protein Requirements: [place] Protein (g/day): 65-77 (1.1-1.3) Method Used for [...] diabetes education [address]ara [address], [place] Contact: [phone] * Bisi Mercado RN - 05/30/2025 6:55 PM EDT Us Administrative Law Judge at bedside to complete evening assessment. Upon entry to room, pt resting in bed, respirations even and non-labored while on room air. Vitals obtained and assessment completed, see flow sheet for details. Pt denies needs from junior technical writer at this time. Call light in reach. Care is ongoing. * Sury Caldwell OTR/Dee - 05/30/2025 8:26 AM EDT [facility] Inpatient/Observation Date: 05/30/2025 Patient Name: Virgil Warner [...] AM EDT [facility] Inpatient/Observation/Outpatient Rehabilitation Date: 05/30/2025 Patient Name: Virgil [...] to: Safe and IND with all mobility. Therapist/Drafter Structural will attempt to see this patient, at our earliest opportunity. Sonia Baum, PT, DPT Date: 05/30/2025 * Collette Piña, RN - 05/30/2025 7:55 AM EDT Patient awake and resting in bed upon junior technical writer entering the room. Patient is alert [...] from the original note were not included. [facility] Department of Pharmacy Pharmacy Renal Adjustment [...] from the original note were not included. [facility] Department of Pharmacy Pharmacy Renal Adjustment [...] for CrCl 30-<80mL/min. Thank you, Guera Du [facility],05/30/2025,6:48 AM * Jamison Resendiz [facility] - 05/30/2025 5:06 AM EDT PHARMACY NOTE: [...] 05/30/2025 4:57 AM EDT Pt [facility] via wheelchair from ED. Pt able [...] at this time. documented in this encounterBon [place] [address]-05-2025 Hospital Discharge instructions* Discharge Instr - Activity* [...] at most local grocery stores, pharmacies, and [place]-stores. If you have any questions about your diet or nutrition, call the hospital and ask for the dietitian. Regular Diet * Discharge Instr - SHAR* Collette Piña RN - 05/31/2025 12:28 PM EDT Continuity of Care Form Patient Name: Virgil Warner : 1975 Admit date: 05/29/2025 Discharge date: Code Status Order: Full Code Advance Directives: Admitting Physician: Emanuel Danielle MD PCP: Vivian Lemos, WILDLIFE 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 Discharging Nurse: Discharging Hospital Unit/Room#: 0303/0303-01 Discharging Unit Phone Number: Emergency Contact: Extended Emergency Contact Information Primary Emergency Contact: Yoel Warner [address]: [address] [place] [phone] Mobile Relation: Spouse Secondary Emergency Contact: Iliana Green Mobile Relation: Child Past Surgical History: Past Surgical History: Procedure Laterality Date ANKLE SURGERY Left 07/23/2024 ANKLE EXTERNAL FIXATOR APPLICATION (ORTHOFIX) performed by Meera Mike DPM at [facility] OR BLADDER SUSPENSION CARDIAC CATHETERIZATION Left 12/31/2015 right radial / Dr. Vargas/ No stents COLONOSCOPY N/A 12/08/2022 COLONOSCOPY POLYPECTOMY SNARE/COLD BIOPSY performed by Tari Curtis MD at [facility] OR COLONOSCOPY 12/08/2022 -polyps(hyperplastic)tortuous colon CYSTOSCOPY Left with stent FOOT CLOSED REDUCTION Left 07/23/2024 FOOT CLOSED REDUCTION PINNING performed by Meera Mike DPM at [facility] OR FOOT SURGERY Left 09/14/2024 REMOVE EXTERNAL FIXATOR LEFT FOOT performed by Meera Mike DPM at [facility] OR FOOT SURGERY Left 09/14/2024 SUBTALAR JOINT FUSION FUSION MIDFOOT MULTIPLE JOINTS LEFT FOOT performed by [facility] DPMat [facility] OR HYSTERECTOMY (CERVIX STATUS UNKNOWN) [...] Immunization History Administered Date(s) Administered Influenza A (Z3P4-14) Vaccine PF IM 08/29/2009 Influenza Virus Vaccine [...] Pain in upper limb M79.603 Diabetic neuropathy ([facility]) E11.40 Fibromyalgia M79.7 Depression F32.A Controlled type 2 diabetes mellitus with diabetic polyneuropathy, with long-term current use of insulin ([facility]) E11.42, Z79.4 Ureteric calculus N20.1 Gross hematuria R31.0 History of kidney stones Z87.442 Renal stones N20.0 Idiopathic acute pancreatitis K85.00 Hypertriglyceridemia E78.1 SIRS without infection with organ dysfunction ([facility]) R65.11 Generalized abdominal pain R10.84 Perirectal abscess K61.1 Tobacco abuse Z72.0 Essential hypertension I10 Dyslipidemia E78.5 Type 2 diabetes mellitus with hyperglycemia ([facility]) E11.65 Multiple joint pain M25.50 Abnormal LFTs [...] 2 diabetes mellitus with Charcot joint arthropathy ([facility]) E11.610 Charcot joint of left foot M14.672 Acquired posterior equinus, left M21.862 Diabetes ([facility]) E11.9 Multiple closed fractures of metatarsal bone of left foot S92.302A Dislocation of tarsometatarsal joint of left foot S93.325A Charcot's joint of foot, left M14.672 BAILEE (acute kidney injury) N17.9 Orthostatic hypotension I95.1 Severe obesity (BMI >= 40) ([facility]) E66.01 LAYNE (obstructive sleep apnea) G47.33 Lightheaded [...] MENTAL STATUS:} IV Access: { SHAR IV ACCESS:392808397} Nursing Mobility/ADLs: Walking {CHP DME ADLs:753196658} Transfer {CHP DME ADLs:079988299} Bathing {CHP DME ADLs:374537382} Dressing {CHP DME ADLs:796516317} Toileting {CHP DME ADLs:988127833} Feeding {CHP DME ADLs:980762113} Culinary Manager {P DME ADLs:021917554} Med Delivery { SHAR MED Delivery:816442875} Wound Care Documentation and Therapy: Incision 09/14/24 Foot Left (Active) Number of days: 259 Elimination: Continence: Bowel: {YES / NO:} Bladder: {YES / NO:} Urinary Catheter: {Urinary Catheter:091813125} Colostomy/Ileostomy/Ileal Conduit: {YES / NO:} Date of Last BM: Intake/Output Summary (Last 24 hours) at 05/31/2025 1228 Last data filed at 05/31/2025 1150 Gross per 24 hour Intake 4057.74 ml Output 2900 ml Net 1157.74 ml I/O last 3 completed shifts: In: 3831.4 [P.O.:700; I.V.:3131.4] Out: 4050 [Urine:4050] Safety Concerns: { SHAR Safety Concerns:003221897} Impairments/Disabilities: { SHAR Impairments/Disabilities:959315086} Nutrition Therapy: Current Nutrition Therapy: { SHAR Diet List:110642331} Routes of Feeding: {CHP DME Other Feedings:873606220} Liquids: {Hand Flatwork Finisher liquid thickness:63943} Daily Fluid Restriction: {CHP DME Yes amt example:210894538} Last Modified Barium Swallow with Video (Video Swallowing Test): {Done Not Done Date:} Treatments at the Time of Hospital Discharge: Respiratory Treatments: Oxygen Therapy: {Therapy; copd oxygen:92550} Ventilator: {[facility] Vent List:385273593} Rehab Therapies: {THERAPEUTIC INTERVENTION:1701394018} Weight Bearing Status/Restrictions: { CC Weight Bearin} Other Medical Equipment (for information only, NOT a DME order): {EQUIPMENT:424971676} Other Treatments: Patient's personal belongings (please select all that are sent with patient): {CHP DME Belongings:490036570} RN SIGNATURE: {Esignature:613461297} CASE MANAGEMENT/SOCIAL WORK SECTION Inpatient Status Date: Readmission Risk Assessment Score: [facility] RISK OF UNPLANNED READMISSION 2.0 14.4 Total Score Discharging to Facility/ Agency Name: Address: Phone: Fax: Dialysis Facility (if applicable) Name: Address: Dialysis Schedule: Phone: Fax: Locomotive Engineer Diesel/Body Artist signature: {Esignature:079235052} PHYSICIAN SECTION Prognosis: {Prognosis:3320427011} Condition at Discharge: { Patient Condition:311249758} Rehab Potential (if transferring to Rehab): {Prognosis:2307197128} Recommended Labs or Other Treatments After Discharge: Physician Certification: I certify the above information and transfer of Virgil Warner is necessary for the continuing treatment of the diagnosis listed and that she requires {Admit to AppropriateLevel of Care:83229} for {GREATER/LESS:536643643} 30 days. Update Admission H&P: {CHP DME Changes in HandP:759049382} PHYSICIAN SIGNATURE: {Esignature:221895780} * Attachments The following attachments cannot be sent through Care Everywhere. * Acute Kidney Injury (Guinean) * Hypertension: General Info (Guinean) documented in this encounterReston Hospital Center09-03-2025 Hospital Discharge instructions* Discharge Instructions* Kelly Boston RN - 05/29/2025 2:28 PM EDT Allergy medications held today. Please call next week to reschedule allergy shots. Follow-up with Dr Ardon's office regarding medication changes and appointment . documented in this encounterReston Hospital Center09-03-2025 History of Present illness Narrative* Kelly Boston [...] or symptoms of distress. documented in this encounterReston Hospital Center09-03-2025 History of Present illness Narrative* Olivia Block, PT - 05/29/2025 1:00 PM EDT [facility] Outpatient Physical Therapy Daily Note Patient: Virgil Warner : 1975 CSN #: [id number] Referring Physician: Meera Mike DPM Date: 05/29/2025 Diagnosis: Closed dislocation of tarsal joint of L foot, S93.315A, Charcot's of L foot joint, M14.672, type 2 DM with polyneuropathy, E11.42, vertigo, R42 Treatment Diagnosis: s/p L Lisfranc injury with beam placement, L foot pain, fibromyalgia associated dizziness vs. autonomic dysfunction Onset Date: 07/13/24 PT Insurance Information: [employer] [place] Total # of Visits Approved: 16 Per [...] stands from the chair 2x6 Exercise 17: judaism pews on air ex 1x minute Assessment Assessment: Continued with calf strength and ankle stability this date. Pt with limited tolerance to all activites. Pt with multiple requests to do 30s or 15s for repetitions rather than the [id number] set by therapist. Pt reports multiple times [...] increased pain or symptoms. - NOT MET Intermediate Goals Time Frame for Intermediate Goals : 5 weeks Intermediate Goal 1: Patient will be independent and compliant with a HEP Compressor Operator Adjuster Goal 2: Patient will improve bilateral ankle dorsiflexion ROM to >7* for ambulation. MET- 12 degrees left DF Compressor Operator Adjuster Goal 3: Patient will improve L ankle strength to >/= 4/5 in all planes to improve stability with ambulation. Progressing (04/29) : left DF:4/5, PF:4/5 ,Inv: 4/5, Rosa: 4/5 Intermediate Goal 4: Patient will be able to hold SLS for 30 seconds without LOB. (04/30) Bilateral SLS about 2-3 seconds before LOB Compressor Operator Adjuster Goal 5: Patient will report 70% improvement in overall symptoms and function - She reports she is 50-60% better overall. She reports she feels like she lacks balance and strength. Minutes Tracking: Time In: 1300 Time Out: 1343 Minutes: 43 Timed Code Treatment Minutes: 41 Minutes OLIVIA BLOCK, PT, DPT Date: 05/29/2025 documented in this encounterReston Hospital Center08-28-2025 Hospital Discharge instructions* Discharge Instructions* Vanna Laws RN - 05/23/2025 2:35 PM EDT Verbally reviewed discharge instructions for care and follow up. Previous print out of these instructions were given with prior treatment.Patient verbalized understanding of these instructions. Today's copy offered and declined. documented in this encounterReston Hospital Center08-28-2025 History of Present illness Narrative* Vanna Laws RN - 05/23/2025 1:15 PM EDT Allergy injection flow sheet Identification of own vial of serum Delayed reaction URI with or without wheezing Time of injection Discharge time Yes No No 5644 6690 Injection Schedule Concentration Dose Location Vial Expiration Date Reviewed GOLD A 0.2ML LEFT ARM YES GOLD B 0.2ML RIGHT ARM YES Injection given by: GABRIEL RN Injection site checked upon discharge by: GABRIEL RN Comments: no local Reminder: document all injections in the allergy binder. documented in this encounterBon [facility]08-25-2025 History of Present illness Narrative* Hussein Rich PTA - 05/20/2025 1:30 PM EDT Physical Therapy [facility] Outpatient Physical Therapy Daily Note Patient: Virgil Warner : 1975 CSN #: [id number] Referring Physician: Meera Mike DPM Date: 05/20/2025 Treatment Diagnosis: s/p L Lisfranc injury with beam placement, L foot pain Onset Date: 07/13/24 PT Insurance Information: [employer] [place] Total # of Visits Approved: 16 Per [...] stands from the chair 2x10 Exercise 17: judaism pews on air ex 1x minute Assessment Body Structures, Functions, Activity Limitations Requiring Skilled Therapeutic Intervention: Decreased functional mobility , Decreased ADL status, Decreased ROM, Decreased strength, Decreased endurance, Decreased balance, Decreased high- level IADLs, Increased pain Assessment: Patient reports intermittent bouts of want to lean backwards when standing today. Added judaism pews on air ex for further ankle [...] increased pain or symptoms. - NOT MET Intermediate Goals Time Frame for Compressor Operator Adjuster Goals : 5 weeks Intermediate Goal 1: Patient will be independent and compliant with a HEP Compressor Operator Adjuster Goal 2: Patient will improve bilateral ankle dorsiflexion ROM to >7* for ambulation. MET- 12 degrees left DF Intermediate Goal 3: Patient will improve L ankle strength to >/= 4/5 in all planes to improve stability with ambulation. Progressing (04/29) : left DF:4/5, PF:4/5 ,Inv: 4/5, Rosa: 4/5 Compressor Operator Adjuster Goal 4: Patient will be able to hold SLS for 30 seconds without LOB. (04/30) Bilateral SLS about 2-3 seconds before LOB Compressor Operator Adjuster Goal 5: Patient will report 70% improvement [...] 05/20/2025 2:44 PM EDT documented in this encounterReston Hospital Center08-21-2025 Hospital Discharge instructions* Discharge Instructions* Shelley Sunshine RN - 05/16/2025 2:31 PM EDT Verbally reviewed discharge instructions for care and follow up. Previous print out of these instructions were given with prior treatment.Patient verbalized understanding of these instructions. Today's copy offered and declined. documented in this encounterReston Hospital Center08-21-2025 History of Present illness Narrative* Shelley Sunshine RN - 05/16/2025 2:30 PM EDT Allergy injection flow sheet Identification of own vial of serum Delayed reaction URI with or without wheezing Time of injection Discharge time Yes No No 5406 1964 Injection Schedule Concentration Dose Location Vial Expiration Date Reviewed Gold#A 0.1ml left yes Gold#B 0.1ml right Injection given by: Radha CARLOS Injection site checked upon discharge by: Radha CARLOS Comments: no local Reminder: document all injections in the allergy binder. documented in this encounterReston [facility]08-[facility]25 History of Present illness Narrative* Hussein Rich PTA - 05/16/2025 1:30 PM EDT Physical Therapy [facility] Outpatient Physical Therapy Daily Note Patient: Virgil Warner : 1975 CSN #: [id number] Referring Physician: Meera Mike DPM Date: 05/16/2025 Treatment Diagnosis: s/p L Lisfranc injury with beam placement, L foot pain Onset Date: 07/13/24 PT Insurance Information: [employer] [place] Total # of Visits Approved: 16 Per [...] increased pain or symptoms. - NOT MET Compressor Operator Adjuster Goals Time Frame for Intermediate Goals : 5 weeks Compressor Operator Adjuster Goal 1: Patient will be independent and compliant with a HEP Compressor Operator Adjuster Goal 2: Patient will improve bilateral ankle dorsiflexion ROM to >7* for ambulation. MET- 12 degrees left DF Compressor Operator Adjuster Goal 3: Patient will improve L ankle strength to >/= 4/5 in all planes to improve stability with ambulation. Progressing (04/29) : left DF:4/5, PF:4/5 ,Inv: 4/, Rosa: 4/5 Compressor Operator Adjuster Goal 4: Patient will be able to hold SLS for 30 seconds without LOB. (04/30) Bilateral SLS about 2-3 seconds before LOB Compressor Operator Adjuster Goal 5: Patient will report 70% improvement [...] 2:19 PM EDT [facility] History of Present illness Narrative* Javed Melendrez - 05/13/2025 2:30 PM EDT Physical Therapy Patient cancelled and rescheduled due to not feeling well. Cosigned by Olivia Nam PT at 05/13/2025 1:51 PM EDT documented in this encounterBon [facility]08-15-[facility] History of Present illness Narrative* Hussein Rich PTA - 05/10/2025 2:30 PM EDT Physical Therapy [facility] Outpatient Physical Therapy Daily Note Patient: Virgil Warner : 1975 CSN #: [id number] Referring Physician: Meera Mike DPM Date: 05/10/2025 Treatment Diagnosis: s/p L Lisfranc injury with beam placement, L foot pain Onset Date: 07/13/24 PT Insurance Information: [employer] [place] Total # of Visits Approved: 16 Per [...] increased pain or symptoms. - NOT MET Compressor Operator Adjuster Goals Time Frame for Intermediate Goals : 5 weeks Intermediate Goal 1: Patient will be independent and compliant with a HEP Compressor Operator Adjuster Goal 2: Patient will improve bilateral ankle dorsiflexion ROM to >7* for ambulation. MET- 12 degrees left DF Intermediate Goal 3: Patient will improve L ankle strength to >/= 4/5 in all planes to improve stability with ambulation. Progressing (04/29) : left DF:4/5, PF:4/5 ,Inv: 4/, Rosa: 4/5 Compressor Operator Adjuster Goal 4: Patient will be able to hold SLS for 30 seconds without LOB. (04/30) Bilateral SLS about 2-3 seconds before LOB Compressor Operator Adjuster Goal 5: Patient will report 70% improvement [...] 05/10/2025 3:14 PM EDT documented in this encounterReston [facility] Center08-14-2025 Hospital Discharge instructions* Discharge Instructions* Vanna Laws RN - 05/09/2025 3:38 PM EDT Verbally reviewed discharge instructions for care and follow up. Previous print out of these instructions were given with prior treatment.Patient verbalized understanding of these instructions. Today's copy offered and declined. documented in this encounterReston [facility] Center08-14-2025 History of Present illness Narrative* Sonia Baum, PT - 05/09/2025 3:00 PM EDT [facility] Outpatient Physical Therapy Daily Note Patient: Virgil Warner : 1975 [facility] #: [id number] Referring Physician: Meera Mike DPM Date: 05/09/2025 Diagnosis: Closed dislocation of tarsal joint of L foot, S93.315A, Charcot's of L foot joint, M14.672, type 2 DM with polyneuropathy, E11.42 Treatment Diagnosis: s/p L Lisfranc injury with beam placement, L foot pain Onset Date: 07/13/24 PT Insurance Information: [employer] [place] Total # of Visits Approved: 16 Per [...] increased pain or symptoms. - NOT MET Intermediate Goals Time Frame for Intermediate Goals : 5 weeks Intermediate Goal 1: Patient will be independent and compliant with a HEP Intermediate Goal 2: Patient will improve bilateral ankle dorsiflexion ROM to >7* for ambulation. MET- 12 degrees left DF Intermediate Goal 3: Patient will improve L ankle strength to >/= 4/5 in all planes to improve stability with ambulation. Progressing (04/29) : left DF:4/5, PF:4/5 ,Inv: 4/5, Rosa: 4/5 Compressor Operator Adjuster Goal 4: Patient will be able to hold SLS for 30 seconds without LOB. (04/30) Bilateral SLS about 2-3 seconds before LOB Compressor Operator Adjuster Goal 5: Patient will report 70% improvement in overall symptoms and function - She reports she is 50-60% better overall. She reports she feels like she lacks balance and strength. Minutes Tracking: Time In: 1459 Time Out: 1539 Minutes: 40 Timed Code Treatment Minutes: 39 Minutes Sonia Baum PT, DPT Date: 05/09/2025 documented in this encounterReston Hospital Center08-14-2025 History of Present illness Narrative* Vanna Laws RN - 05/09/2025 2:15 PM EDT Allergy injection flow sheet Identification of own vial of serum Delayed reaction URI with or without wheezing Time of injection Discharge time Yes No No 7305 [id number] Injection Schedule Concentration Dose Location Vial Expiration Date Reviewed Gold A 0.05ml Left arm yes Gold B 0.05ml Right arm yes Injection given by: GABRIEL CARLOS Injection site checked upon discharge by: GABRIEL CARLOS Comments: no local Reminder: document all injections in the allergy binder. documented in this encounterReston [facility] Center08-07-2025 Hospital Discharge instructions* Discharge Instructions* Vanna Laws RN - 05/02/2025 3:56 PM EDT Verbally reviewed discharge instructions for care and follow up. Previous print out of these instructions were given with prior treatment.Patient verbalized understanding of these instructions. Today's copy offered and declined. documented in this encounterReston Hospital Center08-07-2025 History of Present illness Narrative* Vanna Laws RN - 05/02/2025 2:15 PM EDT Allergy injection flow sheet Identification of own vial of serum Delayed reaction URI with or without wheezing Time of injection Discharge time Yes no No [id number] (patient had another appointment in the hospital) Injection Schedule Concentration Dose Location Vial Expiration Date Reviewed Gold A 0.03ml Left arm yes Gold B 0.03ml Right arm yes Injection given by: GABRIEL CARLOS Injection site checked upon discharge by: GABRIEL CARLOS Comments: no local Reminder: document all injections in the allergy binder. documented in this encounterReston [facility] Center08-05-2025 History of Present illness Narrative* Olivia Nam, PT - 04/30/2025 12:45 PM EDT [facility] Outpatient Physical Therapy Daily Note Patient: Virgil Warner : 1975 CSN #: [id number] Referring Physician: Meera Mike DPM Date: 04/30/2025 Treatment Diagnosis: s/p L Lisfranc injury with beam placement, L foot pain Onset Date: 07/13/24 PT Insurance Information: [employer] [place] Total # of Visits Approved: 16 Per [...] progressed to exercises to work toward her longterm goals today. She requires seated rest breaks throughout due to back and hip pain/burning sensation. She would benefit from continued PT to work toward her longterm goals. She was encouraged to return to [...] increased pain or symptoms. - NOT MET Intermediate Goals Time Frame for Intermediate Goals : 5 weeks Intermediate Goal 1: Patient will be independent and compliant with a HEP Intermediate Goal 2: Patient will improve bilateral ankle dorsiflexion ROM to >7* for ambulation. MET- 12 degrees left DF Compressor Operator Adjuster Goal 3: Patient will improve L ankle strength to >/= 4/5 in all planes to improve stability with ambulation. Progressing (04/29) : left DF:4/5, PF:4/5 ,Inv: 4/5, Rosa: 4/5 Compressor Operator Adjuster Goal 4: Patient will be able to hold SLS for 30 seconds without LOB. (04/30) Bilateral SLS about 2-3 seconds before LOB Compressor Operator Adjuster Goal 5: Patient will report 70% improvement in overall symptoms and function - She reports she is 50-60% better overall. She reports she feels like she lacks balance and strength. Minutes Tracking: Time In: 1246 Time Out: 1329 Minutes: 43 Timed Code Treatment Minutes: 41 Minutes Olivia Nam PT, DPT, OCS, Cert. DN Date: 04/30/2025 documented in this encounterReston Hospital Center08-04-2025 Hospital Discharge instructions* Discharge Instructions* Shelley Sunshine RN - 04/29/2025 3:14 PM EDT Verbally reviewed discharge instructions for care and follow up. Previous print out of these instructions were given with prior treatment.Patient verbalized understanding of these instructions. Today's copy offered and declined. documented in this encounterReston [facility] Center08-04-2025 History of Present illness Narrative* Shelley Sunshine RN - 04/29/2025 3:00 PM EDT Allergy injection flow sheet Identification of own vial of serum Delayed reaction URI with or without wheezing Time of injection Discharge time Yes No No [id number] Injection Schedule Concentration Dose Location Vial Expiration Date Reviewed Blue#A 0.5ml left yes Blue#B 0.5ml right Injection given by: Radha CARLOS Injection site checked upon discharge by: Radha CARLOS Comments: no local Reminder: document all injections in the allergy binder. documented in this encounterBon [facility]08-04-2025 History of Present illness Narrative* Hussein RichMILAGROS - 04/29/2025 2:15 PM EDT Physical Therapy [facility] Outpatient Physical Therapy Daily Note Patient: Virgil Warner : 1975 CSN #: [id number] Referring Physician: Meera Mike DPM Date: 04/29/2025 Treatment Diagnosis: s/p L Lisfranc injury with beam placement, L foot pain Onset Date: 07/13/24 PT Insurance Information: [employer] [place] Total # of Visits Approved: 10 Per [...] HR 15# KB x15 / seated TR z39--ddu this date Exercise 11: Scitfit L1 x [...] increased pain or symptoms. - NOT MET Intermediate Goals Time Frame for Intermediate Goals : 5 weeks Intermediate Goal 1: Patient will be independent and compliant with a HEP Compressor Operator Adjuster Goal 2: Patient will improve bilateral ankle dorsiflexion ROM to >7* for ambulation. MET- 12 degrees left DF Intermediate Goal 3: Patient will improve L ankle strength to >/= 4/5 in all planes to improve stability with ambulation. Progressing (04/29) : left DF:4/5, PF:4/5 ,Inv: 4/5, Rosa: 4/5 Compressor Operator Adjuster Goal 4: Patient will be able to hold SLS for 30 seconds without LOB. (04/29) progressing 30seconds but requires at least 1 UE support Compressor Operator Adjuster Goal 5: Patient will report 70% improvement in overall symptoms and function. Minutes Tracking: Time In: 1414 Time Out: 1455 Minutes: 41 Timed Code Treatment Minutes: 39 Minutes Hussein Rich PTA Date: 04/29/2025 Cosigned by Oliiva Nam, PT at 04/29/2025 3:27 PM EDT documented in this encounterBon [facility]07-31-2025 Hospital Discharge instructions* Discharge Instructions* Vanna Laws RN - 04/25/2025 3:34 PM EDT Verbally reviewed discharge instructions for care and follow up. Previous print out of these instructions were given with prior treatment.Patient verbalized understanding of these instructions. Today's copy offered and declined. documented in this encounterReston Hospital Center07-31-2025 History of Present illness Narrative* Vanna Laws RN - 04/25/2025 3:00 PM EDT Allergy injection flow sheet Identification of own vial of serum Delayed reaction URI with or without wheezing Time of injection Discharge time Yes No No [id number] Injection Schedule Concentration Dose Location Vial Expiration Date Reviewed BLUE A 0.4ML LEFT ARM YES BLUE B 0.4ML RIGHT ARM YES Injection given by: Madison LAWS RN Injection site checked upon discharge by: GABRIEL CARLOS Comments: no local Reminder: document all injections in the allergy binder. documented in this encounterReston Hospital Center07-31-2025 History of Present illness Narrative* Alanna Chappell MILAGROS - 04/25/2025 2:15 PM EDT [facility] Outpatient Physical Therapy Daily Note Patient: Virgil Warner : 1975 CSN #: [id number] Referring Physician: Meera Mike DPM Date: 04/25/2025 Treatment Diagnosis: s/p L Lisfranc injury with beam placement, L foot pain Onset Date: 07/13/24 PT Insurance Information: [employer] [place] Total # of Visits Approved: 10 Per [...] increased pain or symptoms. - NOT MET Compressor Operator Adjuster Goals Time Frame for Compressor Operator Adjuster Goals : 5 weeks Compressor Operator Adjuster Goal 1: Patient will be independent and compliant with a HEP Intermediate Goal 2: Patient will improve bilateral ankle dorsiflexion ROM to >7* for ambulation. MET- 12 degrees left DF Compressor Operator Adjuster Goal 3: Patient will improve L ankle strength to >/= 4/5 in all planes to improve stability with ambulation. Compressor Operator Adjuster Goal 4: Patient will be able to hold SLS for 30 seconds without LOB Compressor Operator Adjuster Goal 5: Patient will report 70% improvement in overall symptoms and function. Minutes Tracking: Time In: 1415 Time Out: 1450 Minutes: 35 Alanna Chappell PTA Date: 04/25/2025 Cosigned by Olivia Nam, PT at 04/25/2025 3:10 PM EDT documented in this encounterBon [facility]07-28-2025 Hospital Discharge instructions* Discharge Instructions* Kelly Boston RN - 04/22/2025 3:19 PM EDT Verbally reviewed discharge instructions for care and follow up. Previous print out of these instructions were given with prior treatment.Patient verbalized understanding of these instructions. Today's copy offered and declined. documented in this encounterReston Hospital Center07-28-2025 History of Present illness Narrative* Kelly Boston RN - 04/22/2025 3:00 PM EDT Allergy injection flow sheet Identification of own vial of serum Delayed reaction URI with or without wheezing Time of injection Discharge time Yes No No [id number] Injection Schedule Concentration Dose Location Vial Expiration Date Reviewed Blue Vial A 0.3 ml Left arm yes Blue Vial B 0.3 ml Right arm yes Injection given by: Mark Boston RN Injection site checked upon discharge by: Mark Boston RN Comments: no local Reminder: document all injections in the allergy binder. documented in this encounterReston Hospital Center07-28-2025 History of Present illness Narrative* Alanna Chappell PTA - 04/22/2025 2:15 PM EDT [facility] Outpatient Physical Therapy Daily Note Patient: Virgil Warner : 1975 CSN #: [id number] Referring Physician: Meera Mike DPM Date: 04/22/2025 Treatment Diagnosis: s/p L Lisfranc injury with beam placement, L foot pain Onset Date: 07/13/24 PT Insurance Information: [employer] [place] Total # of Visits Approved: 10 Per [...] HR 15# KB x15 / seated TR v30--wkn this date Exercise 11: Scitfit L1 x [...] increased pain or symptoms. - NOT MET Intermediate Goals Time Frame for Intermediate Goals : 5 weeks Intermediate Goal 1: Patient will be independent and compliant with a HEP Intermediate Goal 2: Patient will improve bilateral ankle dorsiflexion ROM to >7* for ambulation. MET- 12 degrees left DF Intermediate Goal 3: Patient will improve L ankle strength to >/= 4/5 in all planes to improve stability with ambulation. Intermediate Goal 4: Patient will be able to hold SLS for 30 seconds without LOB Intermediate Goal 5: Patient will report 70% improvement in overall symptoms and function. Minutes Tracking: Time In: 1414 Time Out: 1450 Minutes: 36 Alanna Chappell PTA Date: 04/22/2025 Cosigned by Olivia Nam, PT at 04/22/2025 3:01 PM EDT documented in this encounterBon [facility]07-24-2025 History of Present illness Narrative* Swapna Prado [...] in the allergy binder. documented in this encounterReston Hospital Center07-24-2025 Hospital Discharge instructions* Discharge Instructions* Swapna Prado RN - 04/18/2025 3:00 PM EDT Verbally reviewed discharge instructions for care and follow up. Previous print out of these instructions were given with prior treatment.Patient verbalized understanding of these instructions. Today's copy offered and declined. 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 Patient demonstrates poor balance bilaterally with [...] increased pain or symptoms. - NOT MET Compressor Operator Adjuster Goals Time Frame for Intermediate Goals : 5 weeks Compressor Operator Adjuster Goal 1: Patient will be independent and compliant with a HEP Intermediate Goal 2: Patient will improve bilateral ankle dorsiflexion ROM to >7* for ambulation. MET- 12 degrees left DF Compressor Operator Adjuster Goal 3: Patient will improve L ankle strength to >/= 4/5 in all planes to improve stability with ambulation. Compressor Operator Adjuster Goal 4: Patient will be able to hold SLS for 30 seconds without LOB Intermediate Goal 5: Patient will report 70% improvement in overall symptoms and function. Minutes Tracking: Time In: 1402 Time Out: 1447 Minutes: 45 Timed Code Treatment Minutes: 43 Minutes Olivia Nam, PT, DPT, OCS, Cert. DN Date: 04/18/2025 documented in this encounterReston Hospital Center07-21-2025 [facility] Discharge instructions* Discharge Instructions* Kelly Boston RN - 04/15/2025 3:14 PM EDT Verbally reviewed discharge instructions for care and follow up. Previous print out of these instructions were given with prior treatment.Patient verbalized understanding of these instructions. Today's copy offered and declined. documented in this encounterReston Hospital Center07-21-2025 History of Present illness Narrative* Kelly Boston RN - 04/15/2025 3:00 PM EDT Allergy injection flow sheet Identification of own vial of serum Delayed reaction URI with or without wheezing Time of injection Discharge time Yes No No 1500 1529 Injection Schedule Concentration Dose Location Vial Expiration Date Reviewed Blue Vial A 0.1 ml Left arm yes Blue Vial B 0.1 ml Right arm yes Injection given by: Mark Boston RN Injection site checked upon discharge by: Mark Boston RN Comments: no local Reminder: document all injections in the allergy binder. documented in this encounterReston Hospital Center07-17-2025 Hospital Discharge instructions* Discharge Instructions* Vanna Laws RN - 04/11/2025 3:25 PM EDT Outpatient Discharge Instructions for Allergy Injections [address] [id number] Activity: Avoid strenuous activity or exercise for [...] NEAREST EMERGENCY ROOM. Comments: documented in this encounterReston Hospital Center07-17-2025 History of Present illness Narrative* Vanna Laws RN - 04/11/2025 3:00 PM EDT Allergy injection flow sheet Identification of own vial of serum Delayed reaction URI with or without wheezing Time of injection Discharge time Yes No No [id number] Injection Schedule Concentration Dose Location Vial Expiration Date Reviewed Blue A 0.05ml Left arm yes Blue B 0.05ml Right arm yes Injection given by: GABRIEL CARLOS Injection site checked upon discharge by: GABRIEL CARLOS Comments: no local Reminder: document all injections in the allergy binder. documented in this encounterReston Hospital Center07-17-2025 History of Present illness Narrative* Alanna Chappell PTA - 04/11/2025 2:15 PM EDT [facility] Outpatient Physical Therapy Daily Note Patient: Virgil Warner : 1975 [facility] #: [id number] Referring Physician: Meera Mike DPM Date: 04/11/2025 Treatment Diagnosis: s/p L Lisfranc injury with beam placement, L foot pain Onset Date: 07/13/24 PT Insurance Information: [employer] [place] Total # of Visits Approved: 10 Per [...] increased pain or symptoms. - NOT MET Compressor Operator Adjuster Goals Time Frame for Compressor Operator Adjuster Goals : 5 weeks Compressor Operator Adjuster Goal 1: Patient will be independent and compliant with a HEP Compressor Operator Adjuster Goal 2: Patient will improve bilateral ankle dorsiflexion ROM to >7* for ambulation. MET- 12 degrees left DF Compressor Operator Adjuster Goal 3: Patient will improve L ankle strength to >/= 4/5 in all planes to improve stability with ambulation. Intermediate Goal 4: Patient will be able to hold SLS for 30 seconds without LOB Compressor Operator Adjuster Goal 5: Patient will report 70% improvement in overall symptoms and function. Minutes Tracking: Time In: 1415 Time Out: 1450 Minutes: 35 Alanna Chappell PTA Date: 04/11/2025 Cosigned by Olivia Nam, PT at 04/11/2025 3:10 PM EDT documented in this encounterReston Hospital Center05-06-2025 History of Present illness Narrative* Karrie Valadez - 01/29/2025 10:45 AM EDT [facility] Inpatient/Observation/Outpatient Rehabilitation Date: 01/29/2025 Patient Name: Virgil [...] does not require skilled services due to: Therapist/[employer]fter [employer] will attempt to see this patient, at our earliest opportunity. Karrie Valadez Date: 01/29/2025 Cosigned by Olivia Block, PT at 01/29/2025 8:19 AM EDT documented in this encounterReston Hospital Center04-29-2025 History of Present illness Narrative* Karrie Valadez - 01/22/2025 11:30 AM EDT [facility] Inpatient/Observation/Outpatient Rehabilitation Date: 01/22/2025 Patient Name: Virgil [...] does not require skilled services due to: Therapist/D[employer]fter [employer] will attempt to see this patient, at our earliest opportunity. Karrie Valadez Date: 01/22/2025 Cosigned by Hussein Rich PTA at 01/22/2025 7:40 AM EDT * Karrie Valadez - 01/22/2025 11:30 AM EDT [facility] Inpatient/Observation/Outpatient Rehabilitation Date: 01/24/2025 Patient Name: Virgil [...] does not require skilled services due to: Therapist/[employer]fter [employer] will attempt to see this patient, at our earliest opportunity. Karrie Valadez Date: 01/24/2025 Cosigned by Alanna Chappell PTA at 01/24/2025 9:24 AM EDT documented in this encounterBon [facility]04-24-2025 History of Present illness Narrative* Makayla Lozoya PTA - 01/17/2025 2:45 PM EDT Physical Therapy [facility] Outpatient Physical Therapy Daily Note Patient: Virgil Warner : 1975 CSN #: [id number] Referring Physician: Meera Mike DPM Date: 01/17/2025 Treatment Diagnosis: s/p L Lisfranc injury with beam placement, L foot pain Onset Date: 07/13/24 PT Insurance Information: [employer] [place] Total # of Visits Approved: 22 Per [...] tolerate exercise without increased pain or symptoms.-met Intermediate Goals Time Frame for Compressor Operator Adjuster Goals : 6 weeks Compressor Operator Adjuster Goal 1: Patient will be independent and compliant with a HEP - progressing Compressor Operator Adjuster Goal 2: Patient will improve bilateral ankle dorsiflexion ROM to >7* for ambulation. MET- 10 degrees left DF (01/08/2025) Compressor Operator Adjuster Goal 3: Patient will improve L ankle strength to >/= 4/5 in all planes to improve stability with ambulation. progressing (01/08/2025) left DF: 4/5, PF: 4/5:,Inv 4/5:, Evr: 4-/5, pain withplanterflexion and eversion Intermediate Goal 4: Patient will be able to hold SLS for 30 seconds without LOB: unable to fully WB on LLE due to instability - not able to attempt yet at this time Intermediate Goal 5: Patient will report 70% improvement in overall symptoms and function. Minutes Tracking: Time In: 1446 Time Out: 1531 Minutes: 45 Timed Code Treatment Minutes: 43 Minutes Makayla Lozoya PTA Date: 01/17/2025 Cosigned by Olivia Nam, PT at 01/17/2025 4:34 PM EDT documented in this encounterBon Wilson Health04-21-2025 History of Present illness Narrative* Karrie Valadez - 01/14/2025 12:15 PM EDT [facility] Inpatient/Observation/Outpatient Rehabilitation Date: 01/14/2025 Patient Name: Virgil [...] does not require skilled services due to: Therapist/Drafter Structural will attempt to see this patient, at our earliest opportunity. Karrie Valadez Date: 01/14/2025 Cosigned by Makayla Lozoya PTA at 01/14/2025 8:36 AM EDT documented in this encounterBon Wilson Health04-15-2025 History of Present illness Narrative* Hussein Rich PTA - 01/08/2025 2:30 PM EDT Physical Therapy [facility] Outpatient Physical Therapy Daily Note Patient: Virgil Warner : 1975 CSN #: [id number] Referring Physician: Meera Mike DPM Date: 01/08/2025 Treatment Diagnosis: s/p L Lisfranc injury with beam placement, L foot pain Onset Date: 07/13/24 PT Insurance Information: [employer] [place] Total # of Visits Approved: 12 Per [...] HS curls 15x BLEs // mini squats f40--axqp shoe donned1 UE support Exercise 11: seated [...] tolerate exercise without increased pain or symptoms.-met Compressor Operator Adjuster Goals Time Frame for Intermediate Goals : 6 weeks Compressor Operator Adjuster Goal 1: Patient will be independent and compliant with a HEP Intermediate Goal 2: Patient will improve bilateral ankle dorsiflexion ROM to >7* for ambulation. MET- 10 degrees left DF (01/08/2025) Compressor Operator Adjuster Goal 3: Patient will improve L ankle strength to >/= 4/5 in all planes to improve stability with ambulation. progressing (01/08/2025) left DF: 4/5, PF: 4/5:,Inv 4/5:, Evr: 4-/5, pain withplanterflexion and eversion Intermediate Goal 4: Patient will be able to hold SLS for 30 seconds without LOB: unable to fully WB on LLE due to instability Compressor Operator Adjuster Goal 5: Patient will report 70% improvement in overall symptoms and function. Minutes Tracking: Time In: 1432 Time Out: 1512 Minutes: 40 Timed Code Treatment Minutes: 40 Minutes Hussein Rich PTA Date: 01/08/2025 Cosigned by Olivia Nam, PT at 01/08/2025 3:24 PM EDT documented in this encounterBon Wilson Health04-07-2025 History of Present illness Narrative* Alanna Chappell PTA - 12/31/2024 12:45 PM EDT [facility] Outpatient Physical Therapy Daily Note Patient: Virgil Warner : 1975 CSN #: [id number] Referring Physician: Meera Mike DPM Date: 12/31/2024 Treatment Diagnosis: s/p L Lisfranc injury with beam placement, L foot pain Onset Date: 07/13/24 PT Insurance Information: [employer] [place] Total # of Visits Approved: 12 Per [...] HS curls 15x BLEs // mini squats l99--bkka shoe donned Exercise 11: seated heel slides [...] tolerate exercise without increased pain or symptoms.-met Intermediate Goals Time Frame for Intermediate Goals : 6 weeks Compressor Operator Adjuster Goal 1: Patient will be independent and compliant with a HEP Intermediate Goal 2: Patient will improve bilateral ankle dorsiflexion ROM to >7* for ambulation. MET- 10 degrees left DF this date after manual (12/19/2024) Compressor Operator Adjuster Goal 3: Patient will improve L ankle strength to >/= 4/5 in all planes to improve stability with ambulation. Compressor Operator Adjuster Goal 4: Patient will be able to hold SLS for 30 seconds without LOB Compressor Operator Adjuster Goal 5: Patient will report 70% improvement in overall symptoms and function. Minutes Tracking: Time In: 1245 Time Out: 1330 Minutes: 45 Alanna Chappell PTA Date: 12/31/2024 Cosigned by Olivia Nam, PT at 12/31/2024 6:53 PM EDT documented in this encounterBon Wilson Health03-31-2025 History of Present illness Narrative* Alanna Chappell PTA - 12/24/2024 12:45 PM EDT [facility] Outpatient Physical Therapy Daily Note Patient: Virgil Warner : 1975 CSN #: [id number] Referring Physician: Meera Mike DPM Date: 12/24/2024 Treatment Diagnosis: s/p L Lisfranc injury with beam placement, L foot pain Onset Date: 07/13/24 PT Insurance Information: [employer] [place] Total # of Visits Approved: 12 Per [...] Exercise 9: Seated LAQ, adduction, HS curl emmonak tband 15x ea, marching 15x Exercise 10: [...] tolerate exercise without increased pain or symptoms.-Progressing Compressor Operator Adjuster Goals Time Frame for Compressor Operator Adjuster Goals : 6 weeks Compressor Operator Adjuster Goal 1: Patient will be independent and compliant with a HEP Compressor Operator Adjuster Goal 2: Patient will improve bilateral ankle dorsiflexion ROM to >7* for ambulation. MET- 10 degrees left DF this date after manual (12/19/2024) Compressor Operator Adjuster Goal 3: Patient will improve L ankle strength to >/= 4/5 in all planes to improve stability with ambulation. Compressor Operator Adjuster Goal 4: Patient will be able to hold SLS for 30 seconds without LOB Intermediate Goal 5: Patient will report 70% improvement in overall symptoms and function. Minutes Tracking: Time In: 1245 Time Out: 1330 Minutes: 45 Alanna Chappell PTA Date: 12/24/2024 Cosigned by Olivia Nam, PT at 12/24/2024 7:25 PM EDT documented in this encounterBon Wilson Health03-26-2025 History of Present illness Narrative* Hussein Rich PTA - 12/19/2024 1:45 PM EDT Physical Therapy [facility] Outpatient Physical Therapy Daily Note Patient: Virgil Warner : 1975 CSN #: [id number] Referring Physician: Meera Mike DPM Date: 12/19/2024 Treatment Diagnosis: s/p L Lisfranc injury with beam placement, L foot pain Onset Date: 07/13/24 PT Insurance Information: [employer] [place] Total # of Visits Approved: 12 Per [...] Exercise 9: Seated LAQ, adduction, HS curl emmonak tband 10x ea, marching 15x Exercise 10: [...] tolerate exercise without increased pain or symptoms.-Progressing Intermediate Goals Time Frame for Compressor Operator Adjuster Goals : 6 weeks Compressor Operator Adjuster Goal 1: Patient will be independent and compliant with a HEP Intermediate Goal 2: Patient will improve bilateral ankle dorsiflexion ROM to >7* for ambulation. MET- 10 degrees left DF this date after manual (12/19/2024) Compressor Operator Adjuster Goal 3: Patient will improve L ankle strength to >/= 4/5 in all planes to improve stability with ambulation. Compressor Operator Adjuster Goal 4: Patient will be able to hold SLS for 30 seconds without LOB Compressor Operator Adjuster Goal 5: Patient will report 70% improvement in overall symptoms and function. Minutes Tracking: Time In: 1338 Time Out: 1439 Minutes: 61 Timed Code Treatment Minutes: 61 Minutes Hussein Rich PTA Date: 12/19/2024 Cosigned by Sonia Baum, PT at 12/19/2024 3:21 PM EDT documented in this encounterBon Wilson Health03-24-2025 History of Present illness Narrative* DuncanvilleMaxim - 12/17/2024 12:45 PM EDT Physical Therapy [facility] Inpatient/Observation/Outpatient Rehabilitation Date: 12/17/2024 Patient Name: Virgil [...] does not require skilled services due to: Therapist/Drafter Structural will attempt to see this patient, at our earliest opportunity. Maxim Garcia Date: 12/17/2024 Cosigned by Alanna Chappell PTA at 12/17/2024 8:50 AM EDT documented in this encounterBon [facility] Health03-12-2025 History of Present illness Narrative* Makayla Lozoya PTA - 12/05/2024 2:30 PM EDT Physical Therapy [facility] Outpatient Physical Therapy Daily Note Patient: Virgil Warner : 1975 CSN #: [id number] Referring Physician: Meera Mike DPM Date: 12/05/2024 Treatment Diagnosis: s/p L Lisfranc injury with beam placement, L foot pain Onset Date: 07/13/24 PT Insurance Information: [employer] [place] Total # of Visits Approved: 12 Per [...] tolerate exercise without increased pain or symptoms.-Progressing Intermediate Goals Time Frame for Intermediate Goals : 6 weeks Compressor Operator Adjuster Goal 1: Patient will be independent and compliant with a HEP Compressor Operator Adjuster Goal 2: Patient will improve bilateral ankle dorsiflexion ROM to >7* for ambulation. Compressor Operator Adjuster Goal 3: Patient will improve L ankle strength to >/= 4/5 in all planes to improve stability with ambulation. Compressor Operator Adjuster Goal 4: Patient will be able to hold SLS for 30 seconds without LOB Intermediate Goal 5: Patient will report 70% improvement in overall symptoms and function. Minutes Tracking: Time In: 1432 Time Out: 1515 Minutes: 43 Timed Code Treatment Minutes: 40 Minutes Makayla Lozoya PTA Date: 12/05/2024 Cosigned by Olivia Nam, PT at 12/05/2024 7:38 PM EDT documented in this encounterBon [id number] History of Present illness Narrative* Makayla Lozoya POND TENDER - 12/03/2024 12:30 PM EDT Physical Therapy [facility] Outpatient Physical Therapy Daily Note Patient: Virgil Warner : 1975 CSN #: [id number] Referring Physician: Meera Mike DPM Date: 12/03/2024 Treatment Diagnosis: s/p L Lisfranc injury with beam placement, L foot pain Onset Date: 07/13/24 PT Insurance Information: [employer] [place] Total # of Visits Approved: 12 Per [...] tolerate exercise without increased pain or symptoms.-Progressing Intermediate Goals Time Frame for Compressor Operator Adjuster Goals : 6 weeks Intermediate Goal 1: Patient will be independent and compliant with a HEP Intermediate Goal 2: Patient will improve bilateral ankle dorsiflexion ROM to >7* for ambulation. Compressor Operator Adjuster Goal 3: Patient will improve L ankle strength to >/= 4/5 in all planes to improve stability with ambulation. Compressor Operator Adjuster Goal 4: Patient will be able to hold SLS for 30 seconds without LOB Intermediate Goal 5: Patient will report 70% improvement in overall symptoms and function. Minutes Tracking: Time In: 1230 Time Out: 1316 Minutes: 46 Timed Code Treatment Minutes: 42 Minutes Makayla Lozoya PTA Date: 12/03/2024 Cosigned by Olivia Nam PT at 12/03/2024 1:41 PM EDT documented in this encounterBon Wilson Health03-06-2025 History of Present illness Narrative* JoseMaxim - 11/29/2024 11:15 AM EST Physical Therapy [facility] Inpatient/Observation/Outpatient Rehabilitation Date: 11/29/2024 Patient Name: Virgil [...] does not require skilled services due to: Therapist/Drafter Structural will attempt to see this patient, at our earliest opportunity. Maxim Garcia Date: 11/29/2024 Cosigned by Alanna Chappell PTA at 11/29/2024 8:47 AM EST documented in this encounterBon Wilson Health12-21-2024 History of Present illness Narrative* Karrie Faith, OT - 09/15/2024 11:25 AM EST [facility] Occupational Therapy Evaluation Date: 09/15/24 Patient Name: Virgil Warner Room: Account: [id number] : 1975 (49 y.o.) Gender: female Discharge [...] Level of Assist for Transfers: Independent Active Rehabilitation Worker: No Patient's Rehabilitation Worker Info: spouse or dtr Mode of Transportation: [...] How much help for eating meals?: None [facility] In[facility] Daily Activity Raw Score: 19 [facility] Inpatient ADL T-Scale Score : 40.22 ADL [...] - 09/15/2024 11:09 AM EST Physical Therapy [facility] Physical Therapy Evaluation Date: 09/15/24 Patient Name: Virgil Warner Room: Account: [id number] : 1975 (49 y.o.) Gender: female Discharge [...] is a 49 y.o. female seen at [facility] for postoperative pain. Patient is admitted [...] Level of Assist for Transfers: Independent Active Rehabilitation Worker: No Patient's Rehabilitation Worker Info: spouse or dtr Mode of Transportation: [...] pt prefers to use bilateral walker hand disaster recovery specialist despite cues and bathroom rail and sink [...] climbing 3-5 steps with a railing?: Total [facility] Inpatient Mobility Raw Score : 18 [facility] Inpatient T-Scale Score : 43.63 Mobility Inpatient [...] blood sugar 280 documented in this encounterBon Wilson Health12-21-2024 Hospital Discharge instructions* Discharge Instructions* Angely Martínez [...] Agent's Name Healthcare Agent's Phone Number 09/14/24 [id number] Yes, patient has an advance directive for healthcare treatment Durable power of employment attorney for health care;Living will Yes, copy in chart -- -- -- Admitting Physician: Meera Mike DPM PCP: Vivian Lemos APRN - [place] Discharging Nurse: Discharging Hospital Unit/Room#: 2049/9-01 Discharging Unit Phone Number: Emergency Contact: Extended Emergency Contact Information Primary Emergency Contact: Yoel Warner Address: [address] [place] [phone] Mobile Relation: Spouse Past Surgical History: Past Surgical History: Procedure Laterality Date ANKLE SURGERY Left 07/23/2024 ANKLE EXTERNAL FIXATOR APPLICATION (ORTHOFIX) performed by Meera Mike DPM at [facility] OR BLADDER SUSPENSION CARDIAC CATHETERIZATION Left 12/31/2015 right radial / Dr. Vargas/ No stents COLONOSCOPY N/A 12/08/2022 COLONOSCOPY POLYPECTOMY SNARE/COLD BIOPSY performed by Tari Curtis MD at [facility] OR COLONOSCOPY 12/08/2022 -polyps(hyperplastic)tortuous colon CYSTOSCOPY Left with stent FOOT CLOSED REDUCTION Left 07/23/2024 FOOT CLOSED REDUCTION PINNING performed by Meera Mike DPM at [facility] OR FOOT SURGERY Left 09/14/2024 REMOVE EXTERNAL FIXATOR LEFT FOOT performed by Meera Mike DPM at [facility] OR FOOT SURGERY Left 09/14/2024 SUBTALAR JOINT FUSION FUSION MIDFOOT MULTIPLE JOINTS LEFT FOOT performed by [facility]era [facility] DPMat [facility] OR HYSTERECTOMY (CERVIX STATUS UNKNOWN) [...] Immunization History Administered Date(s) Administered Influenza A (X0Q6-28) Vaccine PF IM 08/29/2009 Influenza Virus Vaccine [...] polyneuropathy, with long-term current use of insulin ([facility]) E11.42, Z79.4 Ureteric calculus N20.1 Gross hematuria R31.0 History of kidney stones Z87.442 Renal stones N20.0 Idiopathic acute pancreatitis K85.00 Hypertriglyceridemia E78.1 SIRS without infection with organ dysfunction ([facility]) R65.11 Generalized abdominal pain R10.84 Perirectal abscess K61.1 Tobacco abuse Z72.0 Essential hypertension I10 Dyslipidemia E78.5 Type 2 diabetes mellitus with hyperglycemia ([facility]) E11.65 Multiple joint pain M25.50 Abnormal LFTs [...] 2 diabetes mellitus with Charcot joint arthropathy ([facility]) E11.610 Charcot joint of left foot M14.672 Acquired posterior equinus, left M21.862 Post-op pain G89.18 Diabetes ([facility]) E11.9 Multiple closed fractures of metatarsal bone [...] MENTAL STATUS:} IV Access: { SHAR IV ACCESS:280054573} Nursing Mobility/ADLs: Walking {CHP DME ADLs:271152364} Transfer {CHP DME ADLs:297191525} Bathing {CHP DME ADLs:349900477} Dressing {CHP DME ADLs:084786815} Toileting {CHP DME ADLs:133294085} Feeding {CHP DME ADLs:009957194} Culinary Manager {P DME ADLs:572420624} Med Delivery { SHAR MED Delivery:356745607} Wound Care Documentation and Therapy: Incision 09/14/24 Foot Left (Active) Dressing Status Clean;Dry;Intact 09/14/241940 Dressing/Treatment Katlyn wrap 09/14/241940 Incision Assessment Other (Comment) 09/14/241940 Drainage Amount None (dry) 09/14/241940 Odor None 09/14/24 1305 Number of days: 0 Elimination: Continence: Bowel: {YES / NO:} Bladder: {YES / NO:} Urinary Catheter: {Urinary Catheter:922612357} Colostomy/Ileostomy/Ileal Conduit: {YES / NO:} Date of Last BM: Intake/Output Summary (Last 24 hours) at 09/15/2024 0712 Last data filed at 09/14/2024 1315 Gross per 24 hour Intake 1950 ml Output 550 ml Net 1400 ml I/O last 3 completed shifts: In: 1950 [I.V.:1950] Out: 550 [Urine:450; Blood:100] Safety Concerns: { SHAR Safety Concerns:597884960} Impairments/Disabilities: { SHAR Impairments/Disabilities:085326969} Nutrition Therapy: Current Nutrition Therapy: { SHAR Diet List:651139134} Routes of Feeding: {[facility] DME Other Feedings:445049598} Liquids: {Hand Flatwork Finisher liquid thickness:72025} Daily Fluid Restriction: {[facility] DME Yes amt example:749382793} Last Modified Barium Swallow with Video (Video Swallowing Test): {Done Not Done Date:} Treatments at the Time of Hospital Discharge: Respiratory Treatments: Oxygen Therapy: {Therapy; copd oxygen:32278} Ventilator: {[facility] Vent List:617069100} Rehab Therapies: {THERAPEUTIC INTERVENTION:6244134810} Weight Bearing Status/Restrictions: {[facility] Weight Bearin} Other Medical Equipment (for information only, NOT a DME order): {EQUIPMENT:383869699} Other Treatments: Patient's personal belongings (please select all that are sent with patient): {[facility] DME Belongings:162592446} RN SIGNATURE: {Esignature:522624607} CASE MANAGEMENT/SOCIAL WORK SECTION Inpatient Status Date: Readmission Risk Assessment Score: [facility] RISK OF UNPLANNED READMISSION 2.0 0 Total Score Discharging to Facility/ Agency Name: Address: Phone: Fax: Dialysis Facility (if applicable) Name: Address: Dialysis Schedule: Phone: Fax: Locomotive Engineer Diesel/Body Artist signature: {Esignature:775852197} PHYSICIAN SECTION Prognosis: Fair Condition at Discharge: Stable Rehab Potential (if transferring to Rehab): {Prognosis:2507745339} Recommended Labs or Other Treatments After Discharge: [...] that she requires {Admit to AppropriateLevel of Care:91604} for {GREATER/LESS:508131845} 30 days. Update Admission H&P: No change in H&P PHYSICIAN SIGNATURE: Meera Mike DPM * Attachments The following attachments cannot be sent through Care Everywhere. * doxycycline (oral/injection) (Guinean) * hydrocodone (oral) (Guinean) documented in this encounterBon Wilson Health12-13-2024 Hospital Discharge instructions* Discharge Instructions* Geno Douglas [...] powder, deodorant, jewelry, piercings, perfume, makeup, nail macedonian, hair accessories, or hair spray on the day of surgery. Wear loose comfortable clothing. Leave your valuables at home but bring a payment source for any after-surgery prescriptions you plan to fill at [facility]. Bring a storage case for any glasses/contacts. An adult who is responsible for you MUST drive you home and should be with you for the first 24 hours after surgery. If having out-patient knee and foot surgeries, please arrange for planned crutches, walker, or wheelchair before arriving to the hospital. The Day of Surgery: Arrive at [facility] Surgery Entrance at the time directed by your surgeon and check in at the desk. If you have a living will or healthcare power of employment attorney, please bring a copy. You will be taken to the pre-op holding area where you will be prepared for surgery. A physical assessment will be performed by a nurse practitioner or assisted living housekeeper. Your IV will be started and you [...] in recovery room. documented in this encounterBon Wilson Health10-31-2024 History of Present illness Narrative* Maxim Giordano [...] Last Encounter 07/26/24 Assessment/Intervention/Outcome Intervention Prayer (assurance of)/[place] * Aria Del Toro - 07/25/2024 3:24 PM EDT 07/25/24 1523 Encounter Summary Encounter Overview/Reason Volunteer Encounter Service Provided For Patient Last Encounter 07/25/24 Assessment/Intervention/Outcome Intervention Prayer (assurance of)/[place] * Laurie Coronado PTA - 07/25/2024 11:40 [...] [facility] Inpatient Mobility Raw Score : 19 [facility] Inpatient T-Scale Score : 45.44 Mobility Inpatient [...] is a 49 y.o. female seen at [facility] for postoperative abdomen after application of a multiplanar external fixator, percutaneous foot excision tarsal fracture, consider lengthening, no close treatment tarsometatarsal dislocation on 07-15-2024. Patient had injury to left lower e xtremity incidentally after walking where she was seen in [place] [facility] almost 2 weeks ago. She followed [...] on 07/25/2024 at 3:36 PM Board Certified, [place] [employer] Fellow, [employer] * Patty Romo, OT - 07/24/2024 12:14 PM EDT [facility] Occupational Therapy Evaluation Date: 07/24/24 Patient Name: Virgil Warner Room: Account: [id number] : 1975 (49 y.o.) Gender: female Discharge [...] utilizing knee scooter,) Transfer Assistance: Independent Active Rehabilitation Worker: Yes Mode of Transportation: Car Occupation: Unemployed [...] understanding, Continued education needed Functional Outcome Measures [facility] Daily Activity - Inpatient How much help [...] How much help for eating meals?: None [facility] Inpatient Daily Activity Raw Score: 19 [facility] Inpatient ADL T-Scale Score : 40.22 ADL [...] 07/24/2024 10:39 AM EDT Physical Therapy Facility/Department: [facility] Physical Therapy Initial Assessment Name: Virgil [...] utilizing knee scooter,) Transfer Assistance: Independent Active Rehabilitation Worker: Yes Mode of Transportation: Car Occupation: Unemployed [...] 3-5 steps with a railing?: A Lot [facility] Inpatient [facility]ility [facility] : [facility] T-Scale Score : 42.13 Mobility Inpatient [...] is a 49 y.o. female seen at [facility] for postoperative abdomen after application of a multiplanar external fixator, percutaneous foot excision tarsal fracture, consider lengthening, no close treatment tarsometatarsal dislocation on 07-15-2024. Patient had injury to left lower e xtremity incidentally after walking where she was seen in [place] ER almost 2 weeks ago. She followed [...] on 07/24/2024 at 9:57 AM Board Certified, [place] [employer] Fellow, [employer] * Mecca Ward RN - 07/23/2024 1:20 PM EDT Pre op blood sugar 188 documented in this encounterBon Wilson Health10-31-2024 Hospital course Narrative* Sreekanth Weber DPM - 07/26/2024 3:03 PM EDT Images from the original note were not included. Discharge Summary Podiatric Medicine and Surgery Patient Identification Virgil Warner is a 49 y.o. female : 1975 Acct: [id number] Admit date: 07/23/2024 Discharge date and time: [...] weeks with assistive device. Discharge home in [place]. present. Consults: Podiatry, IM, CM, PT OT [...] 5-325 MG per tablet Commonly known as: [place] Where to Get Your Medications These medications were sent to [id number] - [place], [place] - [address] [facility] - P [phone] - F [phone] [place] [address] acetaminophen 500 MG tablet oxyCODONE-acetaminophen 5-325 MG per tablet These medications were sent to [facility] [address] [facility] [address] - P [phone] - F [phone] [address] [id number] albuterol sulfate HFA 108 (90 Base) MCG/ACT [...] patient's inpatient stay. documented in this encounterBon Wilson Health10-31-2024 Hospital Discharge instructions* Discharge Instructions* Sreekanth Weber [...] possible, you can also obtain these on [employer] for rather affordable and quickly obtainable. You [...] schedule or confirm your appointment. Call your Hris Analyst office if you have any questions or concerns. documented in this encounterBon Wilson Health10-23-2024 Hospital Discharge instructions* Discharge Instructions* Ashanti Harris [...] powder, deodorant, jewelry, piercings, perfume, makeup, nail macedonian, hair accessories, or hair spray on the day of surgery. Wear loose comfortable clothing. Leave your valuables at home. Bring a storage case for any glasses/contacts. The Day of Surgery: Arrive at [facility] Surgery Entrance at the time directed by your surgeon and check in at the desk. 12:00 pm If you have a living will or healthcare power of employment attorney, please bring a copy. You will be taken to the pre-op holding area where you will be prepared for surgery. A physical assessment will be performed by a nurse practitioner or assisted living housekeeper. Your IV will be started and you [...] are in your room. documented in this encounterReston [facility] Center[facility] Hospital Discharge instructions* Discharge Instructions* Jesus Singh [...] been evaluated in the Emergency Department at [facility] 07/14/2024 Your recommendations and if necessary prescriptions from today's visit: -Follow-up with podiatry as noted above -Take medication as prescribed -Follow-up with your PCP If you do not have a primary care provider, establish care with a provider that you can begin to regularly follow-up with. Should you have any questions regarding your care or further treatment, please call [facility] Emergency Department at [phone]. PLEASE RETURN TO THE EMERGENCY DEPARTMENT IMMEDIATELY for -Numbness, tingling, weakness, significant pain not controlled at home OR -Changing symptoms -Worsening symptoms -Unable to follow up with your primary care provider -Any other care or concern documented in this encounterReston Hospital Center07-29-[facility]24 History of Present illness Narrative* Phu Mora - 04/23/2024 1:15 PM EDT [facility] Outpatient Physical Therapy Daily Note Patient: Virgil Warner : 1975 CSN #: [id number] Referring Physician: No ref. provider found Date: 04/23/2024 Diagnosis: M79.7 fibromyalgia; L shoulder pain, M25.512 Treatment Diagnosis: chronic low back pain; L shoulder pain Onset Date: 12/08/23 PT Insurance Information: [employer] [place] Total # of Visits Approved: 24 Per [...] 15x; L upper trap and scalenes stretch [id number] Exercise 8: Corner pec stretch [id number] Exercise 9: UBE -4/4 Exercise 10: pulleys [...] ROM exercises to improve L shoulder mobility.-progressing Intermediate Goals Time Frame for Compressor Operator Adjuster Goals : 4 weeks Compressor Operator Adjuster Goal 1: Pt will be safe and independent with her HEP Intermediate Goal 2: Pt will increase lumbar AROM to WFL in order to reduce low back pain Compressor Operator Adjuster Goal 4: Pt will report 25% improvement in symptoms in order to improve quality of life Compressor Operator Adjuster Goal 5: Added 03/30: Patient to have improved L shoulder AROM equal to R shoulder ROM all planes with no increase in pain for improved functional mobility. skilled nursing goal 6: Added 03/30: Patient to have improved L shoulder strength >/=4/5 grossly all planes for improved stability. Minutes Tracking: Time In: 1315 Time Out: 1417 Minutes: 62 Phu Welsh Date: 04/23/2024 documented in this encounterBON [facility]07-[facility] History of Present illness Narrative* Génesis Hickman, POND TENDER - 04/12/2024 1:00 PM EDT [facility] Outpatient Physical Therapy Daily Note Patient: Virgil Warner : 1975 CSN #: [id number] Referring Physician: No ref. provider found Date: 04/12/2024 Treatment Diagnosis: chronic low back pain; L shoulder pain Onset Date: 12/08/23 PT Insurance Information: [employer] [place] Total # of Visits Approved: 24 Per [...] 15x; L upper trap and scalenes stretch [id number] Exercise 8: Corner pec stretch [id number] Exercise 9: Supine PPT/ Bridge/ supine clam [...] ROM exercises to improve L shoulder mobility.-progressing Intermediate Goals Time Frame for Compressor Operator Adjuster Goals : 4 weeks Compressor Operator Adjuster Goal 1: Pt will be safe and independent with her HEP Compressor Operator Adjuster Goal 2: Pt will increase lumbar AROM to WFL in order to reduce low back pain Compressor Operator Adjuster Goal 3: Pt will increase BLE strength to >/=4/5 and core strength to Good in order to increase ambulation tolerance Compressor Operator Adjuster Goal 4: Pt will report 25% improvement in symptoms in order to improve quality of life Intermediate Goal 5: Added 03/30: Patient to have improved L shoulder AROM equal to R shoulder ROM all planes with no increase in pain for improved functional mobility. intermediate designer goal 6: Added 03/30: Patient to have improved L shoulder strength >/=4/5 grossly all planes for improved stability. Minutes Tracking: Time In: 1300 Time Out: 1347 Minutes: 47 Génesis Hickman, POND TENDER Date: 04/12/2024 documented in this encounterCAR[facility] History of Present illness Narrative* MattisumayaLary, POND TENDER - 03/01/2024 12:45 PM EDT [facility] Inpatient/Observation/Outpatient Rehabilitation Date: 03/01/2024 Patient Name: Virgil Warner [x] Outpatient : 1975 02/24/24 Plan of Care/Recert ends [x] Pt cancelled due to: [x] Sick/ill Therapist/Drafter Structural will attempt to see this patient, at our earliest opportunity. Lary Rea, POND TENDER Date: 03/01/2024 documented in this encounterCARILION CLINIC09-21-2023 Hospital Discharge instructions* Discharge Instructions* Vicki Finnegan PA-C - 06/16/2023 8:31 PM EDT Follow-up with your supervisor natural gas plant Dr. Marie for your syncope. Also follow-up with your neurologist for your syncope. Make sure you are drinking plenty of fluids, getting up slowly and cautiously, and being careful of your position with coughing. Testing today is improved. * Attachments The following attachments cannot be sent through Care Everywhere. * Fainting (Guinean) documented in this encounterCARILION CLINIC09-19-2023 History of Present illness Narrative* Yuliet Galaviz RN - 06/14/2023 1:22 PM EDT Discharge instructions, follow up appointment and medications reviewed with the patient and spouse and appropriate educational materials and side effects teaching were provided. * Emanuel Danielle MD - 06/14/2023 11:52 AM EDT Physician Progress Note PATIENT: VIRGIL WARNER CSN #: [id number] : 1975 ADMIT DATE: 06/10/2023 8:42 PM [...] you! Chauncey Colunga, BSN,RN, CRCR RN Clinical Principal Network Engineer Options provided: -- Sepsis due to pneumonia [...] 06/14/2023 10:29 AM EDT Physical Therapy Facility/Department: [facility] Daily Treatment Note NAME: Virgil Warner : 1975 Date of Service: 06/14/2023 Discharge Recommendations: Continue to assess pending progress Patient Diagnosis(es): The primary encounter diagnosis was Recurrent syncope. A diagnosis of Pneumonia of both lower lobes due to infectious organism was also pertinent to this visit. Assessment Assessment: PT. able to ambulate [id number] with no AD, SBA for safety with [...] Dobbins RN - 06/13/2023 11:42 PM EDT Us Administrative Law Judge at bedside for shift assessment. Patient sitting up in bed, respirations are even and unlabored while on room air. Vitals obtained and assessment completed, see flowsheet for details. Medications given, see MAR for details. Snacks and fresh water provided. pt denies further needs at this time. Call light in reach. * Génesis Hickman PTA - 06/13/2023 12:58 PM EDT Physical Therapy Facility/Department: [facility] Daily Treatment Note NAME: Virgil Warner : 1975 Date of Service: 06/13/2023 Discharge Recommendations: Continue to assess pending progress Patient Diagnosis(es): The primary encounter diagnosis was Recurrent syncope. A diagnosis of Pneumonia of both lower lobes due to infectious organism was also pertinent to this visit. Assessment Assessment: Pt. able to ambulate with no AD, 105kdv7,30ftx1 with one noted imbalance, able to self [...] 06/13/2023 11:21 AM EDT Occupational Therapy Facility/Department: [facility] Daily Treatment Note NAME: Virgil [...] Minutes 27 AGNES Mathias * Génesis Hickman, POND TENDER - 06/13/2023 10:38 AM EDT Physical Therapy Facility/Department: [facility] Daily Treatment Note NAME: Virgil Warner : 1975 Date of Service: 06/13/2023 Discharge Recommendations: Continue to assess pending progress Patient Diagnosis(es): The primary encounter diagnosis was Recurrent syncope. A diagnosis of Pneumonia of both lower lobes due to infectious organism was also pertinent to this visit. Assessment Assessment: Pt. able to ambulate with no AD, 845eiq1,30ftx1 with no nted OB and required one [...] muscle mass loss Fluid Accumulation: Mild Extremities Vehicle Body Builder Strength: Not Performed Nutrition Assessment: Altered nutrition related labs r/t endocrine dysfunction, AEB glucose excursions on steroid with known diabetes. Improving A1C over time, down to 8.1. Asked provider to be on regular diet to choose for herself, which was granted. Weight consistently elevated/obese with mild fluctuations. Has had remote DM education and likely could benefit from refresher to further improve glycemia roasterman. Nutrition Related Findings: obese, trace LLE edema. Wound Type: None Current Nutrition Intake & Therapies: Average Meal Intake: 76-100% Average Supplements Intake: None Ordered ADULT DIET; Regular Anthropometric Measures: Height: 5' 6 (167.6 cm) [place] Body Weight (IBW): 130 lbs (59 kg) [...] Used for Energy Requirements: Current Energy (kcal/day): 5650-5760 (15-18) Weight Used for Protein Requirements: [place] Protein (g/day): 71-83 (1.2-1.4) Method Used for [...] this time [address], [place] Contact: [phone] * Shelley Champagne, WILDLIFE 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 PICKING CREW - 06/13/2023 9:10 AM EDT Progress Note [...] Jardiance, Humulin R Nutrition status: obesity, non-morbid Pickup Driver consult initiated Hospital Prophylaxis: DVT: Lovenox Stress Ulcer: H2 Unique Disposition: Shared decision making: All test results, treatment options and disposition options were discussed with the patient today Social determinants of health that may impact management: none Code status: Full Code Disposition: Discharge plan is pending [facility] Advanced Care Planning documentation: [x] I [...] the patient's medical record. [DOES NOT SATISFY [facility] PERFORMANCE] Shelley Champagne APRN - GEORGES , JOSSE, DIRECTOR TRADING-C Hospitalist Medicine 06/13/2023, 9:10 AM Associated attestation - Emanuel Danielle MD - 06/13/2023 5:31 PM EDT Images from the original note were not included. [address] , [place], [place], [address] Attestation Patient: Virgil Warner Date of Admission: 06/10/2023 8:42 PM Hospital Day # 3 Date of Evaluation: 06/13/2023 I personally evaluated and examined the patient [id number] in conjunction with the PA/DIRECTOR TRADING and agree with the management and dispostition of the patient. Please see the PA/DIRECTOR TRADING's note for full details.My lezama findings are: [...] with the plan as outlined in the DIRECTOR TRADING/PA's note Disposition: Discharge plan is pending Please note that this chart was generated using voice recognition [employer] dictation software. Although every effort was made to ensure the accuracy of this automated drilling inspector, some errors in drilling inspector may have occurred. Emanuel Danielle MD 06/13/2023 [...] Value Date/Time PHART 7.293 07/02/2013 04:20 PM QFY1LSB 36.8 07/02/2013 04:20 PM PO2ART 70.6 07/02/2013 04:20 PM C5KQZBTU 92.6 07/02/2013 04:20 PM NZH1QVT 17.4 07/02/2013 04:20 PM PBEA NOT REPORTED [...] up in the bed watching TV when junior technical writer entered the room. Pt is A&O x4. Vitals and assessment as charted. Pt rated her pain a 6 out of 10 in her head. Tramadol 50mg PO given. Pt also requested cough medicine. Pt given Tessalon 100mg PO. Pt denies any further needs at this time. Call light within reach. * CHESTER Mathias - 06/12/2023 9:29 AM EDT Occupational Therapy Facility/Department: [facility] Daily Treatment Note NAME: Virgil [...] from the original note were not included. [address] , [place], [place], [address] Progress Note Date: 06/12/2023 Patient name: Virgil Warner Date of admission: 06/10/2023 8:42 PM [...] clubbing or edema DIAGNOSTICS: Laboratory Testing: See [facility] EMR for lab data Recent [...] 4 mg 4 mg Oral Nightly Emanuel Dnaielle MD 4 mg at 06/11/232026 glucose chewable [...] % 50 mL IVPB (mini-bag) 1,000 mg [id number] Emanuel Danielle MD Stopped at 06/12/23 0038 [...] this chart was generated using voice recognition [employer] dictation software. Although every effort was made to ensure the accuracy of this automated drilling inspector, some errors in drilling inspector may have occurred. Emanuel Danielle MD 06/12/2023 [...] Pt has 2 insulin pens locked in annealing furnace operator room. Only using the Humulin 500. Pt stated after being asked where the needles are there is already one on it junior technical writer asked you reuse your needles? Pt [...] pearls also given for cough. Told pt junior technical writer would update for any changes. * Ivet Rinaldi OT - 06/11/2023 3:05 PM EDT Occupational Therapy Facility/Department: [facility] Occupational Therapy Initial [...] Ambulation Assistance: Independent Transfer Assistance: Independent Active Rehabilitation Worker: Yes Objective Safety Devices Type of Devices: [...] 06/11/2023 1:16 PM EDT Physical Therapy Facility/Department: [facility] Physical Therapy Initial [...] 12:45 AM EDT Orthostatic BPs completed by junior technical writer at this time as patient was c/o of multiple episodes of syncopeand collapse at home. * Laurence Weathers RN - 06/11/2023 12:32 AM EDT Patient arrived to [facility], room 315, at this time via wheelchair. Patient independently stood and ambulated to bed. Patient is alert and orientated and on 2L of nasal cannula O2. Patient does NOT normally wear O2 at home. Weight was obtained. documented in this encounterBON [facility]04-06-2023 NoteCONSULTATION CONSULTATION DATE: 12/30/2022 TO: Dr. Ferraro [...] our patients to inform us about any fezw-ddz-ddojaiq medications or herbal remedies/nutritional supplements/alternative remedies. 2. [...] treatment options with their primary care provider.[facility] [id number] History of Present illness Narrative* Makayla Ji [...] day of surgery. documented in this encounterBON [facility] [employer] Phone: 1(479) 564-708203-15-2023 Hospital Discharge instructions* Discharge Instructions* Makayla Ji [...] nearest Emergency Room. documented in this encounterBON [facility]PITALThinkorswim Group Work Phone: 1(227) 688-595203-07-2023 NoteCONSULTATION CONSULTATION DATE: 11/30/2022 CHIEF COMPLAINT: Includes [...] office after she undergoes the imaging studies.[facility] [id number] History of Present illness Narrative* Alyson Carlos - 11/23/2022 1:00 PM EST Patient arrived for home sleep study. Instructed on home sleep monitoring device use and benefits. documented in this encounterBON [facility] [address] Work Phone: 1(518) 317-914501-26-2023 NoteCONSULTATION CONSULTATION DATE: 10/21/2022 HISTORY OF PRESENT ILLNESS: This is a 47-year-old female who returns to the clinic status post thoracic RFA bilaterally of T9, T10 and T11, T12. This was completed on 09/14/2022 and has afforded her significant relief. On the 04 of October, patient had her spinal stimulator removed by Dr. Sherman in [place]. Overall, she is feeling increased relief, but [...] be followed up in the clinic thereafter.[facility] HospitalMhqezhse05-30-7000 History of Present illness Narrative * Jerilyn Li RN - 10/08/2022 3:30 PM EST Patient instructed on extended instrumentation manager indications and use. Diary sent with patient. documented in this encounterBON [facility]REM[facility]ITALThinkorsw[facility] Work Phone: 1(440) 286-383301-04-2023 History of Present illness Narrative* Jerilyn Li RN - 09/29/2022 1:00 PM EST Instructed on objectives and procedure of a tilt study documented in this encounterBON [facility] [employer] Work Phone: 1(672) 726-613012-13-2022 Evaluation note* Encounter Date Diagnosis Assessment Notes [...] would like to proceed with surgical intervention Associated Content Other 12-01-2022 NoteCONSULTATION CONSULTATION DATE: 08/26/2022 HISTORY [...] appointment on 09/07/[address] Sherman in [place] to discuss removal of her nerve stimulator. She is diabetic with the most recent A1c being 7.8 as of yesterday. This is a great improvement for her. Medications include diclofenac 75 mg b.i.d., Requip 4 mg daily, duloxetine, gabapentin, baclofen and [place] 5/325 b.i.d. The patient is inquiring about returning to tramadol, as she felt she got better pain relief with the tramadol over the [place]. Current pain at rest today is 4/10; [...] post procedure and agrees to move forward.[facility] 08-06-2022 History of Present illness Narrative* Olivia [...] Nam PT, DPT documented in this encounterBON [facility] [employer] Work Phone: [phone]) 578-140211-03-2022 NoteCONSULTATION CONSULTATION DATE: 07/29/2022 HISTORY OF PRESENT [...] have this removed by Dr. Sherman in [place] on 09/07/2022. She was last seen on 04/29/2022 which, at that time, she was just starting physical therapy as prescribed by her battery recharger. She feels, between ground and the pool [...] followed up in the office post procedure.[facility] HospitalKabnbtiz03-36-1911 History of Present illness Narrative* Mulu Mccray, POND TENDER - 07/19/2022 4:30 PM EDT [facility] Outpatient Physical Therapy Daily Note Patient: Virgil Warner : 1975 CSN #: [id number] Referring Physician: Tyree Hidalgo MD Date: 07/19/2022 Diagnosis: Other LBP, M54.59, pain in unspecified hip, M25.559 Treatment Diagnosis: Decreased activity endurance, trochanteric bursitis, chronic LBP PT Insurance Information: [employer] [place] Total # of Visits Approved: 20 Per [...] exercise to improve endurance for ADLs. -met Intermediate Goals Time Frame for Intermediate Goals : 4 weeks Intermediate Goal 1: Patient will be independent and compliant with a HEP -met Compressor Operator Adjuster Goal 2: Patient will improve bilateral hip ROM to 90* for ADLs Compressor Operator Adjuster Goal 3: Patient will improve bilateral LE strength to >/= 4/5 for ADLs. Intermediate Goal 4: Patient will improve 5 time sit to stand test time to <30 seconds to indicate improved muscular power Compressor Operator Adjuster Goal 5: The patient will improve ambulation endurance to be able to ambulate >300' before requiring a seated rest break. Minutes Tracking: Time In: 1611 Time Out: 1705 Minutes: 54 Timed Code Treatment Minutes: 51 Minutes Mulu Shazia, POND TENDER [id number] Date: 07/19/2022 documented in this encounterBON [facility] [employer] Phone: 1(559) 569-634010-21-2022 History of Present illness Narrative* Olivia Nam PT - 07/16/2022 2:45 PM EDT [facility] Outpatient Physical Therapy Daily Note Patient: Virgil Warner : 1975 CSN #: [id number] Referring Physician: Tyree Hidalgo MD Date: 07/16/2022 Treatment Diagnosis: Decreased activity endurance, trochanteric bursitis, chronic LBP PT Insurance Information: [employer] [place] Total # of Visits Approved: 20 Per [...] exercise to improve endurance for ADLs. -met Intermediate Goals Time Frame for Intermediate Goals : 4 weeks Intermediate Goal 1: Patient will be independent and compliant with a HEP -met Intermediate Goal 2: Patient will improve bilateral hip ROM to 90* for ADLs Intermediate Goal 3: Patient will improve bilateral LE strength to >/= 4/5 for ADLs. Intermediate Goal 4: Patient will improve 5 time sit to stand test time to <30 seconds to indicate improved muscular power Compressor Operator Adjuster Goal 5: The patient will improve ambulation endurance to be able to ambulate >300' before requiring a seated rest break. Minutes Tracking: Time In: 1445 Time Out: 1530 Minutes: 45 Timed Code Treatment Minutes: 43 Minutes Olivia Nam, PT, DPT Date: 07/16/2022 documented in this encounterBON [employer] Phone: [phone] 588-451410-17-2022 History of Present illness Narrative* Mulu Mccray, POND TENDER - 07/12/2022 2:15 PM EDT [facility] Outpatient Physical Therapy Daily Note Patient: Virgil Warner : 1975 CSN #: [id number] Referring Physician: Tyree Hidalgo MD Date: 07/12/2022 Treatment Diagnosis: Decreased activity endurance, trochanteric bursitis, chronic LBP PT Insurance Information: [employer] [place] Total # of Visits Approved: 20 Per [...] exercise to improve endurance for ADLs. -met Intermediate Goals Time Frame for Compressor Operator Adjuster Goals : 4 weeks Compressor Operator Adjuster Goal 1: Patient will be independent and compliant with a HEP -met Compressor Operator Adjuster Goal 2: Patient will improve bilateral hip ROM to 90* for ADLs Intermediate Goal 3: Patient will improve bilateral LE strength to >/= 4/5 for ADLs. Compressor Operator Adjuster Goal 4: Patient will improve 5 time sit to stand test time to <30 seconds to indicate improved muscular power Compressor Operator Adjuster Goal 5: The patient will improve ambulation endurance to be able to ambulate >300' before requiring a seated rest break. Minutes Tracking: Time In: 1411 Time Out: 1457 Minutes: 46 Timed Code Treatment Minutes: 44 Minutes [facility] Mulu Mccray, POND TENDER [id number] Date: 07/12/2022 documented in this encounterBON [facility] Work Phone: [phone]) 265-671410-10-2022 History of Present illness Narrative* Karrie Beltran PTA - 07/05/2022 3:00 PM EDT [facility] Outpatient Physical Therapy Daily Note Patient: Virgil Warner : 1975 CSN #: [id number] Referring Physician: Tyree Hidalgo MD Date: 07/05/2022 Treatment Diagnosis: Decreased activity endurance, trochanteric bursitis, chronic LBP PT Insurance Information: [employer] [place] Total # of Visits Approved: 20 Per [...] exercise to improve endurance for ADLs. -met Intermediate Goals Time Frame for Compressor Operator Adjuster Goals : 4 weeks Intermediate Goal 1: Patient will be independent and compliant with a HEP -met Intermediate Goal 2: Patient will improve bilateral hip ROM to 90* for ADLs Intermediate Goal 3: Patient will improve bilateral LE strength to >/= 4/5 for ADLs. Compressor Operator Adjuster Goal 4: Patient will improve 5 time sit to stand test time to <30 seconds to indicate improved muscular power Compressor Operator Adjuster Goal 5: The patient will improve ambulation endurance to be able to ambulate >300' before requiring a seated rest break. Minutes Tracking: Time In: 1500 Time Out: 1543 Minutes: 43 Karrie BeltranMILAGROS Date: 07/05/2022 documented in this encounterBON [facility] HOSPITALKRYSTAL [email or web address] Work Phone: [phone]) 267-350210-07-2022 History of Present illness Narrative* Olivia Nam PT - 07/02/2022 10:00 AM EDT [facility] Outpatient Physical Therapy Daily Note Patient: Virgil Warner : 1975 CSN #: [id number] Referring Physician: Tyree Hidalgo MD Date: 07/02/2022 Treatment Diagnosis: Decreased activity endurance, trochanteric bursitis, chronic LBP PT Insurance Information: [employer] [place] Total # of Visits Approved: 20 Per [...] exercise to improve endurance for ADLs. -met Compressor Operator Adjuster Goals Time Frame for Intermediate Goals : 4 weeks Intermediate Goal 1: Patient will be independent and compliant with a HEP Intermediate Goal 2: Patient will improve bilateral hip ROM to 90* for ADLs Intermediate Goal 3: Patient will improve bilateral LE strength to >/= 4/5 for ADLs. Intermediate Goal 4: Patient will improve 5 time sit to stand test time to <30 seconds to indicate improved muscular power Intermediate Goal 5: The patient will improve ambulation endurance to be able to ambulate >300' before requiring a seated rest break. Minutes Tracking: Time In: 1000 Time Out: 1045 Minutes: 45 Timed Code Treatment Minutes: 43 Minutes Olivia Nam PT, DPT Date: 07/02/2022 documented in this encounterBON [facility] Work Phone: 1(166) 228-926010-03-2022 History of Present illness Narrative* Karrie Beltran, POND TENDER - 06/28/2022 3:00 PM EDT [facility] Outpatient Physical Therapy Daily Note Patient: Virgil Warner : 1975 CSN #: [id number] Referring Physician: Tyree Hidalgo MD Date: 06/28/2022 Treatment Diagnosis: Decreased activity endurance, trochanteric bursitis, chronic LBP PT Insurance Information: [place] Total # of Visits Approved: 20 Per [...] exercise to improve endurance for ADLs. -met Compressor Operator Adjuster Goals Time Frame for Intermediate Goals : 4 weeks Intermediate Goal 1: Patient will be independent and compliant with a HEP Intermediate Goal 2: Patient will improve bilateral hip ROM to 90* for ADLs Intermediate Goal 3: Patient will improve bilateral LE strength to >/= 4/5 for ADLs. Compressor Operator Adjuster Goal 4: Patient will improve 5 time sit to stand test time to <30 seconds to indicate improved muscular power Compressor Operator Adjuster Goal 5: The patient will improve ambulation endurance to be able to ambulate >300' before requiring a seated rest break. Minutes Tracking: Time In: 1502 Time Out: 1542 Minutes: 40 Karrie Beltran PTA Date: 06/28/2022 documented in this encounterBON [facility] Work Phone: 1(176) 335-469309-23-2022 History of Present illness Narrative* Karrie Beltran, POND TENDER - 06/18/2022 1:30 PM EDT [facility] Outpatient Physical Therapy Daily Note Patient: Virgil Warner : 1975 CSN #: [id number] Referring Physician: Tyree Hidalgo MD Date: 06/18/2022 Treatment Diagnosis: Decreased activity endurance, trochanteric bursitis, chronic LBP PT Insurance Information: Medical [place] Total # of Visits Approved: 12 Per [...] exercise to improve endurance for ADLs. -met Intermediate Goals Time Frame for skilled nursing goals : 4 weeks intermediate designer goal 1: Patient will be independent and compliant with a HEP intermediate designer goal 2: Patient will improve bilateral hip ROM to 90* for ADLs skilled nursing goal 3: Patient will improve bilateral LE strength to >/= 4/5 for ADLs. intermediate designer goal 4: Patient will improve 5 time sit to stand test time to <30 seconds to indicate improved muscular power skilled nursing goal 5: The patient will improve ambulation endurance to be able to ambulate >300' before requiring a seated rest break. Minutes Tracking: Time In: 1332 Time Out: 1406 Minutes: 34 Karrie Beltran PTA Date: 06/18/2022 documented [facility] Work Phone: 1(103) 152-272309-19-2022 History of Present illness Narrative* Karrie Beltran PTA - 06/14/2022 3:00 PM EDT [facility] Outpatient Physical Therapy Daily Note Patient: Virgil Warner : 1975 CSN #: [id number] Referring Physician: Tyree Hidalgo MD Date: 06/14/2022 Treatment Diagnosis: Decreased activity endurance, trochanteric bursitis, chronic LBP PT Insurance Information: Medical [place] Total # of Visits Approved: 12 Per [...] exercise to improve endurance for ADLs. -met Intermediate Goals Time Frame for intermediate designer goals : 4 weeks skilled nursing goal 1: Patient will be independent and compliant with a HEP skilled nursing goal 2: Patient will improve bilateral hip ROM to 90* for ADLs intermediate designer goal 3: Patient will improve bilateral LE strength to >/= 4/5 for ADLs. skilled nursing goal 4: Patient will improve 5 time sit to stand test time to <30 seconds to indicate improved muscular power skilled nursing goal 5: The patient will improve ambulation endurance to be able to ambulate >300' before requiring a seated rest break. Minutes Tracking: Time In: 1515 Time Out: 1545 Minutes: 30 Karrie Beltran PTA Date: 06/14/2022 [facility] [employer] Phone: 1(177) 247-514009-07-2022 History of Present illness Narrative* Cristina Antonio - 06/02/2022 1:45 PM EDT [facility] Inpatient/Observation/Outpatient Rehabilitation Date: 06/02/2022 Patient Name: Virgil Warner [] Inpatient Acute/Observation [] Outpatient : 1975 [] Pt no showed for scheduled appointment [] Pt refused/declined therapy at this time due to: [x] Pt cancelled due to: [] No Reason Given [] Sick/ill [] Other: Has 2 open wounds cx today and tuesday Therapist/Drafter Structural will attempt to see this patient, at our earliest opportunity. Cristina Antonio Date: 06/02/2022 documented in this [facility] [employer] Work Phone: 1(254) 677-817508-30-2022 History of Present illness Narrative* Nathan Garcia, PT - 05/25/2022 2:45 PM EDT [facility] Outpatient Physical Therapy Daily Note Patient: Virgil Warner : 1975 CSN #: [id number] Referring Physician: Tyree Hidalgo MD Date: 05/25/2022 [...] aquatic exercise to improve endurance for ADLs. Intermediate Goals Time Frame for intermediate designer goals : 4 weeks skilled nursing goal 1: Patient will be independent and compliant with a HEP skilled nursing goal 2: Patient will improve bilateral hip ROM to 90* for ADLs skilled nursing goal 3: Patient will improve bilateral LE strength to >/= 4/5 for ADLs. intermediate designer goal 4: Patient will improve 5 time sit to stand test time to <30 seconds to indicate improved muscular power skilled nursing goal 5: The patient will improve ambulation endurance to be able to ambulate >300' before requiring a seated rest break. Minutes Tracking: Time In: 1446 Time Out: 1543 Minutes: 57 Timed Code Treatment Minutes: 54 Minutes Nathan Garcia PT Date: 05/25/2022 documented in [facility] [employer] Phone: [phone] NoteCONSULTATION CONSULTATION DATE: 04/29/2022 HISTORY OF PRESENT [...] fatty liver disease. She recently saw her battery recharger and was prescribed physical therapy. The patient [...] indicated and patient agrees with this plan.[id number] NoteCONSULTATION CONSULTATION DATE: 04/01/2022 This is a [...] is also under the care of her battery recharger who junior assistant manager her fibromyalgia. She feels very flared [...] will discontinue the Tramadol, change it to [place] 5/325 b.i.d. contingent upon the patient bringing [...] be followed up in the office post-procedure. [facility] Signed and Approved by: LESLIE GAMEZ . 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 !!107 !0.8 ! ! +---------++--------+-----+ ++--------+-----+ +[id number] History of Present illness Narrative* Corrine Guerra RN - 03/03/2021 11:00 AM EDT Patient ordered stress echo test. The patient is unable to walk due to back and leg issues. Talked with ordering physician and changed to Lexiscan nuclear stress test. Patient verbalizes agreement. [facility] this [facility] Phone: 1(983) 951-486804-27-2021 History of Present illness Narrative* Yamel Guadarrama [...] recovered for 2 hours. documented in this [facility] Phone: [phone]) [phone] Hospital Discharge instructions* Instructions* Yamel Guadarrama RN [...] your doctor if you can take an [id number] medicine. If you think your pain medicine [...] Where can you learn more? Go to [email or web address] and sign in to your [employer] account. Enter P586 in the Search Health Information box to learn more about Lumbar Puncture: What to Expect at Home. If you do not have an account, please click on the Sign Up Now link. [employer]. Care instructions adapted under license by [facility] HospitalSh[facility] Media. This care instruction is for use with your licensed healthcare professional. If you have questions about amedical condition or this instruction, always ask your healthcare professional. [employer] disclaims any warranty or liability for your use of this information. Content Version: 11.0.776800; Current as of: November 14, 2015 * Attachments The following attachments cannot be sent through Care Everywhere. * Myelogram (Guinean) documented in this [facility] Work Phone: [phone]) [phone] NotePatient Outreach (COVAMN) TIMMYVIRGIL Nicole ([id number]) 1975 F Date Time Provider Department 12/04/20 [facility]EN[facility] During your visit today, we recorded the following information about you: Allergies As of Date: 12/04/2020 Noted Allergy Reaction PENICILLINS 06/27/2009 2 - Rash Date Reviewed: 12/28/2019 Reviewed by: Johnathan Milner - Fully Assessed Order(s):SARS-COVID VACCINE 1ST DOSE APPT [[id number]] Order #: [id number] FUTURE Prescriptions as of 12/04/2020 Sig: TIZANIDINE [...] [*12/28/2019 Encounter Status:Closed by FATUMA JUSTICEUSER on 12/08/20[facility] Evaluation note* Diagnosis DDD (degenerative disc disease), lumbar Degeneration of lumbar or lumbosacral intervertebral disc documented in this encounter [employer] Phone: evaluation note* Diagnosis Renal stones Calculus of kidney Renal colic documented in this encounter [employer] Phone: evaluation note* Diagnosis Renal stones Calculus of kidney documented in this encounter [employer] Phone: evaluation note* Diagnosis Hepatomegaly documented in this encounter [employer] Phone: evaluation note* Diagnosis Essential hypertension Unspecified essential hypertension Chest discomfort Other chest pain Hyperlipidemia, unspecified hyperlipidemia type Tobacco abuse Tobacco use disorder documented in this encounter [employer] Phone: evaluation note* Diagnosis Abnormal LFTs Other abnormal blood chemistry documented in this encounter [employer] Phone: evaluation note* Diagnosis Other screening mammogram documented in this encounter [employer] Phone: evaluation note* Diagnosis Right upper quadrant abdominal pain Abdominal pain, right upper quadrant documented in this encounter [employer] Phone: evaluation note* Diagnosis Right upper quadrant abdominal pain Abdominal pain, right upper quadrant documented in this encounter [employer] Phone: evaldbbzxr note* Diagnosis Intermittent claudication (HCC) Peripheral vascular disease, unspecified documented in this encounter [employer] Phone: evalfejiyn note* Diagnosis Colon cancer screening Special screening for malignant neoplasms, colon Fatty liver Other chronic nonalcoholic liver disease documented in this encounter [employer] Phone: evalweiyto note* Diagnosis Rib pain on left side- Primary Chest pain, unspecified Screening for colon cancer Special screening for malignant neoplasms, colon documented in this encounter [employer] Phone: evalqepcju note* Diagnosis Colon cancer screening Special screening for malignant neoplasms, colon Fatty liver Other chronic nonalcoholic liver disease Screening for colon cancer Special screening for malignant neoplasms, colon documented in this encounter [employer] Phone: evalfcvmga note* Diagnosis Controlled type 2 diabetes mellitus with diabetic polyneuropathy, with long-term current use of insulin (HCC) Screening for colon cancer Special screening for malignant neoplasms, colon documented in this encounter [employer] Phone: evalcqnosx noteNo assessment information [facility] Work Phone: Evaluation note* Diagnosis Postural syncope Screening for colon cancer Special screening for malignant neoplasms, colon documented in this encounter [employer] Phone: evalazfgop note* Diagnosis Syncope and collapse Preop cardiovascular exam Pre-operative cardiovascular examination Dizziness Dizziness and giddiness Primary hypertension Unspecified essential hypertension Mixed hyperlipidemia Tobacco abuse counseling Counseling on substance use and abuse Screening for colon cancer Special screening for malignant neoplasms, colon documented in this encounter [employer] Phone: evalvjioae noteNo InformationNosaint luke's north [facility] [employer] Other evaluation note* Diagnosis Lumbar radiculitis Thoracic or lumbosacral neuritis or radiculitis, unspecified Screening for colon cancer Special screening for malignant neoplasms, colon documented in this encounter [employer] Phone: evaluation note* Diagnosis Tired Other malaise and fatigue Fatigue, unspecified type LAYNE (obstructive sleep apnea) Obstructive sleep apnea (adult) (pediatric) Screening for colon cancer Special screening for malignant neoplasms, colon documented in this encounter [employer] Phone: evalzxvkjp note* Diagnosis Screening for colon cancer Special screening for malignant neoplasms, colon documented in this encounter [employer] Phone: evalelutek note* Diagnosis Thoracic neuritis Thoracic or lumbosacral neuritis or radiculitis, unspecified documented in this encounter [employer] Phone: evaluation note* Diagnosis LAYNE (obstructive sleep apnea) Obstructive sleep apnea (adult) (pediatric) documented in this encounter [employer] Phone: evaluation note* Diagnosis Acute pneumonia- Primary [...] Syncope and collapse documented in this encounter [facility] [employer] note* Diagnosis Syncope, unspecified syncope type- Primary documented in this encounter [facility] [employer] note* Diagnosis Lower leg edema Edema documented in this encounter [facility] [employer] note* Diagnosis Recurrent pansinusitis documented in this encounter [employer] note* Diagnosis Recurrent pansinusitis Recurrent sinusitis Unspecified sinusitis (chronic) documented in this encounter [employer] note* Diagnosis Lisfranc dislocation, left, initial encounter- Primary Closed nondisplaced fracture of metatarsal bone of left foot, unspecified metatarsal, initial encounter documented in this encounter [facility] [employer] note* Diagnosis Lisfranc dislocation, left, initial encounter- Primary documented in this encounter [facility] [employer] note* Diagnosis Charcot ankle, left- Primary Closed [...] polyneuropathy, with long-term current use of insulin ([facility]) Tobacco abuse Tobacco use disorder Essential hypertension Unspecified essential hypertension Dyslipidemia Other and unspecified hyperlipidemia Type 2 diabetes mellitus with hyperglycemia ([facility]) Type II or unspecified type diabetes mellitus without mention of complication, not stated as uncontrolled Fatty liver Other chronic nonalcoholic liver disease documented in this encounter [facility]* Diagnosis Closed dislocation of tarsal joint of left foot, initial encounter Charcot's joint of foot, left 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) Tobacco abuse Tobacco use disorder Left foot pain Pain in limb documented in this encounter [facility]* Diagnosis Post-op pain- Primary Other acute postoperative pain Charcot ankle, left Diabetes (HCC) Post-op pain Other acute postoperative pain Multiple closed fractures of metatarsal bone of left foot Dislocation of tarsometatarsal joint of left foot Closed dislocation of tarsometatarsal (joint) Charcot's joint of foot, left documented in this encounter [facility] ScamEvaluation [facility]* Diagnosis Spinal stenosis, lumbar region with neurogenic claudication documented in this encounter [facility]* Diagnosis Closed dislocation of tarsal joint of left foot, initial encounter documented in this encounter [facility]* Diagnosis History of syncope Personal history of other specified diseases Essential hypertension Unspecified essential hypertension Tobacco abuse Tobacco use disorder Mixed hyperlipidemia SOB (shortness of breath) Shortness of breath Bilateral leg edema Edema documented in this encounter [facility]* Diagnosis BAILEE (acute kidney injury)- Primary Acute kidney failure, unspecified BAILEE (acute kidney injury) Acute kidney failure, unspecified Lightheaded Dizziness and giddiness Heart murmur Undiagnosed cardiac murmurs Orthostatic hypotension Severe obesity (BMI >= 40) ([facility]) Morbid obesity LAYNE (obstructive sleep apnea) Obstructive sleep apnea (adult) (pediatric) Lightheaded Dizziness and giddiness documented in this encounter [facility]In[facility] HospitalEval[facility] note* Diagnosis BAILEE (acute kidney injury) Acute kidney failure, unspecified Decreased renal function Unspecified disorder of kidney and ureter documented in this encounter [facility]osphere[facility]* Diagnosis Lightheaded Dizziness and giddiness Dizziness Dizziness and giddiness Elevated CK Other nonspecific abnormal serum enzyme levels History of syncope Personal history of other specified diseases Essential hypertension Unspecified essential hypertension Tobacco abuse Tobacco use disorder Mixed hyperlipidemia SOB (shortness of breath) Shortness of breath documented in this encounter [facility]osphereSelect [facility]al[facility]idal[facility]* Diagnosis Onset Date Resolution Status Admit Date BMI 37.0-37.9, adult acuteSeptember 2024 11:34amOsteoporosisacuteSeptember 2024 11:34am SmokeracuteSeptember 2024 11:34am [facility] Work Phone: Evaluation note* Diagnosis Kidney stone- Primary Calculus of kidney Chronic nasal congestion Other diseases of nasal cavity and sinuses Chronic allergic rhinitis Allergic rhinitis, cause unspecified Chronic sinus complaints Other symptoms involving respiratory system and chest Kidney stone Calculus of kidney documented in this encounter [facility]osphere[facility] note* Diagnosis Kidney stone- Primary Calculus of kidney documented in this encounter [facility]osphere[facility] [place] note* Diagnosis Acute pain of right shoulder documented in this encounter [facility] note* Diagnosis Acute pain of left shoulder documented in this encounter [facility]First[facility] general Narrative - Reported* Type Description Date Medical History Hypertension Medical Historytype II diabetesMedical HistoryPMDDMedical Historyhyperlipidemia Surgical History(R) shoulder surgerySurgical HistoryhysterectomySurgical History bladder surgerySurgical HistoryPelvic ReconstructionHospitalization HistorySee Above Associated Content Other Hospital Discharge instructions* Attachments The following attachments cannot be sent through Care Everywhere. * Chest Pain: Musculoskeletal (Guinean) [facility] [employer] Work Phone: Hospital Discharge instructions* Attachments The following attachments cannot be sent through Care Everywhere. 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) Tobacco abuse Type 2 diabetes mellitus with diabetic polyneuropathy, with long-term current use of insulin (HCC) Meera Mike DPM [address] [place] [address] Phone: tel: fax: [facility] Physical Therapy [address] [place] [address] Phone: tel: Referral IDStatusReasonStart DateExpiration DateVisits RequestedVisits [id number] Specialty Services Required / [facility] for visit Narrative* Imaging (Routine) - Closed SpecialtyDiagnoses / ProceduresReferred By ContactReferred To ContactRadiology Diagnoses Spinal stenosis, lumbar region with neurogenic claudication Procedures MRI LUMBAR SPINE WO Suzi Vigil, JOSSE - SUPERVISOR PICKING [employer]W [address] [facility] [address] [place] [address] Phone: tel: fax: Referral IDStatusReasonStart DateExpiration DateVisits RequestedVisits [id number]/11/20257/3/202611 [facility] for visit Narrative* Imaging (Routine) - Pending ReviewSpecialtyDiagnoses / ProceduresReferred By ContactReferred To Contact Radiology Diagnoses Closed dislocation of tarsal joint of left foot, initial encounter Procedures DEXA BONE DENSITY AXIAL SKELETON Meera Mike DPM [address] [facility] [address] [place] [address] Phone: tel: fax: Referral IDStatusReasonStart DateExpiration DateVisits RequestedVisits [id number] Review [facility] for visit Narrative* Physical Therapy (Routine) - AuthorizedSpecialtyDiagnoses / ProceduresReferred By ContactReferred To ContactPhysical Therapy Diagnoses Labyrinthine vertigo, bilateral Might, Vivian W, WILDLIFE 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 [employer] [address] [place] [address] Phone: tel: fax: [facility] Physical Therapy [address] [place] [address] Phone: tel: Referral IDStatusReasonDuncannon DateExpiration DateVisits RequestedVisits [id number] Specialty Services Required [facility] for visit Narrative* Imaging (Routine) - Open SpecialtyDiagnoses / ProceduresReferred By ContactReferred To ContactRadiology Diagnoses Lightheaded Dizziness Elevated CK History of syncope Essential hypertension Tobacco abuse Mixed hyperlipidemia SOB (shortness of breath) Procedures CTA ABDOMEN W WO CONTRAST CTA ABDOMEN PELVIS W CONTRAST CT ABDOMEN W CONTRAST Nathan Ardon MD [address] [place] [address] Phone: tel: fax: Referral IDStatusReasonDuncannon DateExpiration DateVisits RequestedVisits [id number]/12/20259/9/202611 [facility] for visit Narrative* Imaging (Routine) - Closed SpecialtyDiagnoses / ProceduresReferred By ContactReferred To ContactRadiology Diagnoses Chronic nasal congestion Chronic allergic rhinitis Chronic sinus complaints Procedures CT SINUS WO CONTRAST Karri Moreno PA-C [address] [place] [address] Phone: tel: fax: Referral IDStatusReasonStgipsy DateExpiration DateVisits RequestedVisits [id number]/15/202510/ [facility]360Guanxi White HospitalReason for visit Narrative* Auth/CertSpecialtyDiagnoses / ProceduresReferred By ContactReferred To Contact Diagnoses Kidney stone Procedures FL LITHOTRIPSY XTRCORP SHOCK WAVE EXTRACORPOREAL SHOCK WAVE LITHOTRIPSY Florida Everett MD [address] [facility], [address] [place] [address] Phone: tel: fax: [facility] HospitalseVendor Check [facility] [address] [place] [address] Referral IDStatusReasonStgipsy DateExpiration DateVisits RequestedVisits [id number] [facility] for visit Narrative* Imaging (Routine) - Closed SpecialtyDiagnoses / ProceduresReferred By ContactReferred To ContactRadiology Diagnoses Acute pain of right shoulder Procedures MRI SHOULDER RIGHT WO CONTRAST Sharon Dominique MD [address] [place] [address] Phone: tel: fax: Referral IDStatusReasonStgipsy DateExpiration DateVisits RequestedVisits [id number]/22/202510/16/202611 [facility] for visit Narrative* Imaging (Routine) - Closed SpecialtyDiagnoses / ProceduresReferred By ContactReferred To ContactRadiology Diagnoses Acute pain of left shoulder Procedures MRI SHOULDER LEFT WO CONTRAST Sharon Dominique MD [address] [place] [address] Phone: tel: fax: Referral IDStatusReasonStgipsy DateExpiration DateVisits RequestedVisits [id number]/22/202510/14/202611 [facility] Assessments Diagnosis Diabetes mellitus type 2 with [...] Living Will09/24/2013 3:29 PMPower of AttorneyPower of Cmcotbhe87/30/2013 3:29 PMCode StatusDate ActivatedDate InactivatedComments Full Code12/21/2017 5:28 AM12/23/2017 6:35 PMFull Code04/28/2016 7:55 PM04/29/2016 5:42 PMFull Code04/27/2016 8:29 AM04/27/2016 1:04 PMFull Code12/31/2015 1:59 PM 04/27/2016 8:29 AMFull Code12/31/2015 11:18 AM12/31/2015 1:59 PMTypeDate Recorded Patient RepresentativeExplanationAdvance Directives and Living WillAdvance Directives and Living Will09/24/2013 3:29 PMPower of AttorneyPower of Application Support Developer 09/24/2013 3:29 PMCode StatusDate ActivatedDate InactivatedCommentsFull Code 12/21/2017 5:28 AM12/23/2017 6:35 PMFull Code04/28/2016 7:55 PM04/29/2016 5:42 PMFull Code04/27/2016 8:29 AM04/27/2016 1:04 PMFull Code12/31/2015 1:59 PM04/27/2016 8:29 AM Full Code12/31/2015 11:18 AM12/31/2015 1:59 PMTypeDate RecordedPatient RepresentativeExplanationACP-Advance DirectiveACP-Advance Olehxmdhu34/30/2013 3:29 PMACP-Power of AttorneyACP-Power of Vfsbamiq33/30/2013 3:29 PMTypeDate RecordedPatient RepresentativeExplanationACP-Advance DirectiveACP-Advance Rbqvzyoat87/30/2013 3:29 PMACP-Power of AttorneyACP-Power of Bghkcyxo32/30/2013 3:29 PMTypeDate RecordedPatient RepresentativeExplanationACP-Advance Directive ACP-Power of AttorneyACP-Advance Zemrefrku35/30/2013 3:29 PMACP-Power of Gofkynbn66/30/2013 3:29 PMNameRelationshipHealthcare Agent Relationship CommunicationScott KeeSpfour winds psychiatric hospitalPrimary Decision Maker* * * TypeDate RecordedPatient RepresentativeExplanationACP-Advance DirectiveACP-Power of AttorneyACP-Advance Ycamcgogh41/30/2013 3:29 PMACP-Power of Application Support Developer 09/24/2013 3:29 PMNameRelationshipHealthcare Agent RelationshipCommunication Yoel KeeSpfour winds psychiatric hospitalPrimary Decision Maker* * * NameRelationshipHealthcare Agent RelationshipCommunicationScott KeefeSpouse Primary Decision Maker* * * NameRelationshipHealthcare Agent RelationshipCommunicationScott KeefeSpouse Primary Decision Maker* * * NameRelationshipHealthcare Agent RelationshipCommunicationScott KeefeSpouse Primary Decision Maker* * * TypeDate RecordedPatient RepresentativeExplanationACP-Power of AttorneyACP- Advance Yszjyhism23/30/2013 3:29 PMACP-Power of Tajicwnt73/30/2013 3:29 PMName RelationshipHealthcare Agent RelationshipCommunicationScott KeeSpfour winds psychiatric hospitalPrimary Decision Maker* * * TypeDate RecordedPatient RepresentativeExplanationACP-Power of AttorneyACP- Advance Loeztpczz46/30/2013 3:29 PMACP-Power of Mrpkdnge86/30/2013 3:29 PMName RelationshipHealthcare Agent RelationshipCommunicationScott KeefeSpousePrimary Decision Maker* * * NameRelationshipHealthcare Agent RelationshipCommunicationScott KeefeSpouse Primary Decision Maker* * * TypeDate RecordedPatient RepresentativeExplanationACP-Advance Directive 09/24/2013 3:29 PMACP-Power of Kfamkfxa09/30/2013 3:29 PMNameRelationship Healthcare Agent RelationshipCommunicationScott KeefeSpousePrimary Decision [...] RecordedPatient RepresentativeExplanationACP-Advance Directive 09/24/2013 3:29 PMACP-Power of Tndlpjsm12/30/2013 3:29 PMNameRelationship Healthcare Agent RelationshipCommunicationScott KeefeSpousePrimary Decision Maker* * * NameRelationshipHealthcare Agent RelationshipCommunicationScott KeefeSpouse Primary Decision Maker* * * Advance Directive Response Recorded Date/ Time Advance Directives No December 08, 021 2:41pm NameRelationshipHealthcare Agent RelationshipCommunicationScott efeSpfour winds psychiatric hospital Primary Decision Maker* * * NameRelationshipHealthcare Agent RelationshipCommunicationScott [facility] Primary Decision Maker* * * NameRelationshipHealthcare Agent RelationshipCommunicationScott [facility] CentereSp[facility] hospital Primary Decision Maker* * * NameRelationshipHealthcare Agent RelationshipCommunicationScott [facility] CentereSp[facility] hospital Primary Decision Maker* * * NameRelationshipHealthcare Agent RelationshipCommunicationScott [facility] Primary Decision Maker* * * Code StatusDate [...] RecordedPatient RepresentativeExplanationACP-Advance Directive 09/24/2013 3:29 PMACP-Power of Budietvs57/30/2013 3:29 PMACP-Advance Directive 06/13/2023 12:08 PMHealth Care [...] Decision Maker* * * NameRelationshipHealthcare Agent RelationshipCommunicationScott [facility] Primary Decision Maker* * * NameRelationshipHealthcare Agent RelationshipCommunicationScott [facility] Primary Decision Maker* * * Date ActivatedDate InactivatedComments06/11/2023 12:44 AM06/14/2023 3:29 PMDate ActivatedDate InactivatedComments12/21/2017 5:28 AM12/23/2017 6:35 PMDate ActivatedDate InactivatedComments04/28/2016 7:55 PM04/29/2016 5:42 PMDate Activated Date InactivatedComments04/27/2016 8:29 AM04/27/2016 1:04 PMDate ActivatedDate InactivatedComments12/31/2015 1:59 PM04/27/2016 8:29 AMNameRelationshipHealthcare Agent RelationshipCommunicationScott [facility] SouthPrimary Decision Maker* * * NameRelationshipHealthcare Agent RelationshipCommunicationScott [facility] Primary Decision Maker* * * NameRelationshipHealthcare Agent RelationshipCommunicationScott [facility] Primary Decision Maker* * * TypeDate RecordedPatient RepresentativeExplanationACP-Advance Directive 09/24/2013 3:29 PMACP-Power of Fpbjqvmf94/30/2013 3:29 PMACP-Advance Directive 06/13/2023 12:08 PMHealth Care Power of AttorneyDate ActivatedDate Inactivated Comments06/11/2023 12:44 AM06/14/2023 3:29 PMDate ActivatedDate Inactivated Comments12/21/2017 5:28 AM12/23/2017 6:35 PMDate ActivatedDate InactivatedComments 04/28/2016 7:55 PM04/29/2016 5:42 PMDate ActivatedDate InactivatedComments04/27/2016 8:29 AM04/27/2016 1:04 PMDate ActivatedDate InactivatedComments12/31/2015 1:59 PM 04/27/2016 8:29 AMNameRelationshipHealthcare Agent RelationshipCommunicationScott [facility] SouthPrimary Decision Maker* * * NameRelationshipHealthcare Agent RelationshipCommunicationScott [facility] Primary Decision Maker* * * NameRelationshipHealthcare Agent RelationshipCommunicationScott [facility] Primary Decision Maker* * * NameRelationshipHealthcare Agent RelationshipCommunicationScott [facility] Primary Decision Maker* * * Date ActivatedDate FmcpxqerewwIgiaacml11/28/2024 6:49 PMDate ActivatedDate InactivatedComments06/11/2023 12:44 AM06/14/2023 3:29 PMDate ActivatedDate InactivatedComments12/21/2017 5:28 AM12/23/2017 6:35 PMDate ActivatedDate InactivatedComments04/28/2016 7:55 PM04/29/2016 5:42 PMDate ActivatedDate InactivatedComments04/27/2016 8:29 AM04/27/2016 1:04 PMNameRelationshipHealthcare Agent RelationshipCommunicationScott Cox SouthPrimary Decision Maker* * * Date ActivatedDate YhjhhcmrrsmAlhrlsps44/28/2024 6:49 PM10 7:33 PMName RelationshipHealthcare Agent RelationshipAr[facility] Decision Maker* * * Date ActivatedDate IfkamgrtyvxAkbgvlkj27/28/2024 6:49 PM10 7:33 PMDate ActivatedDate InactivatedComments06/11/2023 12:44 AM06/14/2023 3:29 PMDate ActivatedDate InactivatedComments12/21/2017 5:28 AM12/23/2017 6:35 PMDate ActivatedDate InactivatedComments04/28/2016 7:55 PM04/29/2016 5:42 PMDate Activated Date InactivatedComments04/27/2016 8:29 AM04/27/2016 1:04 PMNameRelationship Healthcare Agent RelationshipAr[facility] Decision Maker* * * Date ActivatedDate WarpckpvvqjAbcgcmpb77/20/2024 1:39 PMDate ActivatedDate JbclgjprxivJxrhwgav62/20/2024 11:28 AM09/14/2024 1:39 PMDate ActivatedDate GjlbmlhiqxdRiogmsin32/28/2024 6:49 PM10 7:33 PMDate ActivatedDate InactivatedComments06/11/2023 12:44 AM06/14/2023 3:29 PMDate ActivatedDate InactivatedComments12/21/2017 5:28 AM12/23/2017 6:35 PMNameRelationshipHealthcare Agent RelationshipAr[facility] Decision Maker* * * Date ActivatedDate SexvujcdkdkHiobuyqv97/20/2024 1:39 PM09/15/2024 7:56 PMDate ActivatedDate NnefkxfvwfuJtnsfwbh01/20/2024 11:28 AM09/14/2024 1:39 PMDate ActivatedDate LtshcsdxsveAhozvhff31/28/2024 6:49 PM10 7:33 PMDate ActivatedDate InactivatedComments06/11/2023 12:44 [...] Primary Decision Maker* * * Date ActivatedDate ZdrsqaxaiyxCmnsdjpv27/20/2024 1:39 PM09/15/2024 7:56 PMName RelationshipHealthcare Agent RelationshipCommunicationScott KeefeSpousePrimary Decision Maker* * * NameRelationshipHealthcare Agent RelationshipCommunicationScott KeefeSpouse Primary Decision Maker* * * NameRelationshipHealthcare Agent RelationshipCommunicationScott KeefeSpouse Primary Decision Maker* * * NameRelationshipHealthcare Agent RelationshipCommunicationScott KeefeSpouse Primary Decision Maker* * * NameRelationshipHealthcare Agent RelationshipCommunicationScott KeefeSpouse Primary Decision Maker* * * NameRelationshipHealthcare Agent RelationshipCommunicationScott KeefeSpfour [facility] psychiatric hospital Primary Decision Maker* * * NameRelationshipHealthcare Agent RelationshipCommunicationScott KeeSpfour winds psychiatric hospital Primary Decision Maker* * * NameRelationshipHealthcare Agent RelationshipCommunicationScott KeefeSpfour winds psychiatric hospital Primary Decision Maker* * * Date ActivatedDate InactivatedComments05/30/2025 4:57 AMDate ActivatedDate GoyqklthgddGblnxkew77/20/2024 1:39 PM09/15/2024 7:56 PMDate ActivatedDate IgqqtwptoswObvcikoh25/20/2024 11:28 AM09/14/2024 1:39 PMDate ActivatedDate AedcubqduykArbqlrxj71/28/2024 6:49 PM10 7:33 PMDate ActivatedDate InactivatedComments06/11/2023 12:44 AM06/14/2023 3:29 PMNameRelationshipHealthcare Agent RelationshipCommunicationScott KeefeSpousePrimary Decision Maker* * * Iliana KecklerChildSecondary Decision Maker* Date ActivatedDate InactivatedComments05/30/2025 4:57 AM05/31/2025 3:25 PMName RelationshipHealthcare Agent RelationshipCommunicationScott KeefeSpousePrimary Decision Maker* * * Iliana KalicklerChildSecondary Decision Maker* NameRelationshipHealthcare Agent RelationshipCommunicationScott KeefeSpouse Primary Decision Maker* * * Iliana KlaicklerChildSecondary Decision Maker* Date ActivatedDate InactivatedComments05/30/2025 4:57 AM9 3:25 PMDate ActivatedDate YanomppvmneJxnnrpnj37/20/2024 1:39 PM09/15/2024 7:56 PMDate ActivatedDate MluaquuuqxoVefyfyrc82/20/2024 11:28 AM09/14/2024 1:39 PMDate ActivatedDate NcwsgmtnwkdFedzazhq84/28/2024 6:49 PM10 7:33 PMDate ActivatedDate InactivatedComments06/11/2023 12:44 [...] * Iliana GreenChildSecondary Decision Maker* Date ActivatedDate IsjbnszcbnkQwjspdcx08/28/2025 6:31 AMDate ActivatedDate InactivatedComments05/30/2025 4:57 AM05/31/2025 3:25 PMDate ActivatedDate OkytrjgwsizTixcezbe27/20/2024 1:39 PM09/15/2024 7:56 PMDate ActivatedDate LeevnmdueklWzmfpuqf28/20/2024 11:28 AM09/14/2024 1:39 PMDate ActivatedDate QsfkbebovhlBvnpaxzy79/28/2024 6:49 PM10 7:33 PMNameRelationship Healthcare Agent RelationshipCommunicationScoHermann Area District HospitalPrimary Decision Maker* * * Iliana GreenChildSecondary Decision Maker* Date ActivatedDate QgzmshseybfKhpvxcaq30/28/2025 6:31 AM07/23/2025 11:42 AMDate ActivatedDate InactivatedComments05/30/2025 4:57 AM05/31/2025 3:25 PMDate Activated Date UvessyojdjoFkvonhmu58/20/2024 1:39 PM09/15/2024 7:56 PMDate ActivatedDate ErocxsyqoxlRkkdzrse52/20/2024 11:28 AM09/14/2024 1:39 PMDate ActivatedDate GchdsltymmrKvgouney43/28/2024 6:49 PM10 7:33 PMDate ActivatedDate CtfgmvsbrmfQiayyvkp18/28/2025 6:31 AM07/23/2025 11:42 AMNameRelationship Healthcare Agent RelationshipCommunicationSco KaliCox Walnut LawnPrimary Decision Maker* * * Iliana GreenChildSecondary Decision Maker* NameRelationshipHealthcare Agent RelationshipCommunicationScoHermann Area District Hospital Primary Decision Maker* * * Iliana GreenCibola General HospitalSecondary Decision Maker* Reason for Referral StatusReasonSpecialtyDiagnoses / ProceduresReferred By ContactReferred To ContactOpenRadiology Diagnoses Abdominal pain, unspecified abdominal location Procedures CT ABDOMEN PELVIS W IV CONTRAST Additional Contrast? Oral Curtis Jean MD [address] [place] [address] StatusReasonSpecialtyDiagnoses / ProceduresReferred By ContactReferred To ContactAuthorizedRadiology Diagnoses Generalized abdominal pain Procedures NM GASTRIC EMPTYING HC NM GASTRIC EMPTYING STUDY Curtis Jean MD [address] [place] [place] [id number] [address] [place], [place] StatusReasonSpecialtyDiagnoses / ProceduresReferred By ContactReferred To ContactOpenRadiology Diagnoses Generalized abdominal pain Procedures NM GASTRIC EMPTYING Vivian Lemos, WILDLIFE 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 PICKING CREW [address] [place] [address] StatusReasonSpecialtyDiagnoses / ProceduresReferred By ContactReferred To ContactClosedRadiology Diagnoses Traumatic injury of head, initial encounter Scalp tenderness S09.90XA (ICD-10-CM) - Traumatic injury of head, initial encounter R51.9 (ICD-10-CM) - Scalp tenderness Procedures CT HEAD WO CONTRAST Vivian Lemos, WILDLIFE 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 PICKING CREW [address] [place] [address] StatusReasonSpecialtyDiagnoses / ProceduresReferred By ContactReferred To ContactAuthorizedCardiology Diagnoses Essential hypertension Chest discomfort Hyperlipidemia, unspecified hyperlipidemia type Tobacco abuse Procedures Echo stress test HC NM SEST. REST STRESS MULT Nathan Ardon MD [address] [place] [address] [place] [address] StatusReasonSpecialtyDiagnoses / ProceduresReferred By ContactReferred To ContactClosedRadiology Diagnoses Other screening mammogram Procedures ALEJANDRO MARISOL DIGITAL SCREEN BILATERAL Vivian Lemos WILDLIFE 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 PICKING CREW [address] [place] [address] StatusReasonSpecialtyDiagnoses / ProceduresReferred By ContactReferred To ContactNot Required - RecondoRadiology Diagnoses Right upper quadrant abdominal pain Procedures US GALLBLADDER RUQ HC US ABDOMINAL LIMITED Flip Dodson APRN - SUPERVISOR P[employer]ING [employer]W [address] [place] [address] SpecialtyDiagnoses / ProceduresReferred By ContactReferred To ContactRadiology Diagnoses Intermittent claudication (HCC) Procedures VL LOWER EXTREMITY ARTERIAL SEGMENTAL PRESSURES W PPG Vivian Lemos WILDLIFE 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 PICKING CREW [address] [place] [address] Referral IDStatusReasonStart DateExpiration DateVisits RequestedVisits [id number]/29/20226/111987MzhbyrchyOqjtbeity / Procedures Referred By ContactReferred To ContactRadiology Diagnoses Colon cancer screening Fatty liver Procedures LIVER Tari Curtis MD [address] [place] [address] Referral IDStatusReasonStart DateExpiration DateVisits RequestedVisits [id number]/31/202210/530948NzvoczwrcLvejyhoxg / Procedures Referred By ContactReferred To Contact Diagnoses Postural syncope R55 (ICD-10-CM) - Postural syncope Procedures Tilt Table Test Tilt Table Test FL CARDIOVASCULAR FUNCTION EVAL W/TILT TABLE W/MNTR 24329 - FL CARDIOVASCULAR FUNCTION EVAL W/TILT TABLE W/MNTR Vivian Lemos WILDLIFE 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 PICKING CREW [address] [place] [address] Referral IDStatusReasonDuncannon DateExpiration DateVisits RequestedVisits [id number]/29/202212/420215QzrvthxvdQizjjbgeo / Procedures Referred By ContactReferred To Contact Diagnoses Syncope and collapse Preop cardiovascular exam Dizziness Primary hypertension Mixed hyperlipidemia Tobacco abuse counseling Procedures Continuous cardiac monitoring, >2 up to 14 days Nathan Ardon MD [address] [place] [address] [place] [address] Ref[facility]Status[facility] DateExpiration DateVisits RequestedVisits [id number] Review/[id number] / ProceduresReferred By ContactReferred To ContactRadiology Diagnoses Lumbar radiculitis Procedures MRI LUMBAR SPINE WO CONTRAST Leslie Gamez, WILDLIFE BIOLOGY TECHNICIAN - DIRECTOR TRADING [address] [place] [address] Referral IDStatProMedica Memorial [facility] DateExpiration DateVisits RequestedVisits [id number]/30/20233/187244KovwrbiqkTikdhouks / Procedures Referred By ContactReferred To [facility] Diagnoses Tired Fatigue, unspecified type LAYNE (obstructive sleep apnea) Procedures Home sleep study Nathan Ardon MD [address] [place] [address] [place] [address] Referral IDStatProMedica Memorial Hospital DateExpiration DateVisits RequestedVisits [id number]/14/20232/658856LbwoliqcvCpfptsjvs / Procedures Referred By ContactReferred To ContactRadiology Diagnoses Thoracic neuritis M54.14 (ICD-10-CM) - Thoracic neuritis Procedures MRI THORACIC SPINE WO CONTRAST CHG MRI SPINAL CANAL THORACIC W/O CONTRAST MATRL 67462 - CHG MRI SPINAL CANAL THORACIC W/O CONTRAST MATRL Terry Brady MD [address] [employer], [address] [address] Referral IDStatusReasonStart DateExpiration DateVisits RequestedVisits [id number]/317708BfrrwjqnzAgfvexmkm / Procedures Referred By ContactReferred To [facility] Diagnoses LAYNE (obstructive sleep apnea) Procedures Sleep study with PAP titration Nathan Ardon MD [address] [place] [address] [place] [address] Referral IDStatusReasonStart DateExpiration DateVisits RequestedVisits [id number]/9/20234/981625SegyytmxfSgdzcvviv / Procedures Referred By ContactReferred To ContactRadiology Diagnoses Recurrent sinusitis Procedures CT SINUS WO CONTRAST Vivian Lemos, WILDLIFE 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 PICKING CREW [address] [place] [address] Referral IDStatusReasonStart DateExpiration DateVisits RequestedVisits [id number]/7/202411/614529QewqobeyiKertaszku / Procedures Referred By ContactReferred To ContactRadiology Diagnoses Recurrent pansinusitis Procedures CT SINUS W CONTRAST Vivian Lemos, WILDLIFE 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 PICKING CREW [address] [place] [address] Referral IDStatusReasonStart DateExpiration DateVisits RequestedVisits [id number]/1/20249/013090HskqlfqnkTruyqiljv / Procedures Referred By ContactReferred To ContactRadiology Diagnoses Closed dislocation of tarsal joint of left foot, initial encounter Charcot's joint of foot, left 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) Tobacco abuse Left foot pain Procedures CT FOOT LEFT WO CONTRAST Meera Mike DPM [address] [place] [address] Referral IDStatusReasonStart DateExpiration DateVisits RequestedVisits [id number]/5/20241/ Summary Purpose Family History No Family History [...] CT ABD/PEL W CONT Curtis Jean MD [address] [place] [address] [facility] [address] Scan [address] [place] [address] StatusReasonSpecialtyDiagnoses / ProceduresReferred By ContactReferred To ContactOpenRadiology Diagnoses Thyromegaly Procedures US HEAD NECK SOFT TISSUE THYROID US THYROID [facility] US,HEAD/NECK TISSUES,B-SCAN/REAL TIME Hever Olivera PA [address] [place] [address] StatusReasonSpecialtyDiagnoses / ProceduresReferred By ContactReferred To ContactAuthorizedRadiology Diagnoses Functional dyspepsia Procedures [facility] GASTRIC EMPTYING STUDY Curtis Jean MD [address] [facility] [place] [address] StatusReasonSpecialtyDiagnoses / ProceduresReferred By ContactReferred To ContactClosedRadiology Diagnoses Generalized abdominal pain Procedures NM GASTRIC EMPTYING HC NM GASTRIC EMPTYING STUDY Curtis Jean MD [address] [place] [address] [place] StatusReasonSpecialtyDiagnoses / ProceduresReferred By ContactReferred To ContactClosedRadiology Diagnoses Traumatic injury of head, initial encounter Scalp tenderness S09.90XA (ICD-10-CM) - Traumatic injury of head, initial encounter R51.9 (ICD-10-CM) - Scalp tenderness Procedures CT HEAD WO CONTRAST Vivian Lemos W, WILDLIFE 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 PICKING CREW [address] [place] [address] StatusReasonSpecialtyDiagnoses / ProceduresReferred By ContactReferred To ContactClosedRadiology Diagnoses DDD (degenerative disc disease), lumbar Procedures CT LUMBAR SPINE W CONTRAST FL MYELOGRAM LUMBOSACRAL S&I IR MYELOGRAM LUMBOSACRAL IR MYELOGRAM LUMBOSACRAL Jasper Cleveland MD [facility] [place] [address] StatusReasonSpecialtyDiagnoses / ProceduresReferred By ContactReferred To ContactAuthorizedCardiology Diagnoses Essential hypertension Chest discomfort Hyperlipidemia, unspecified hyperlipidemia type Tobacco abuse Procedures Echo stress test HC NM SEST. REST STRESS MULT Nathan Ardon MD [address] [place] [address] [place] [address] StatusReasonSpecialtyDiagnoses / ProceduresReferred By ContactReferred To ContactPending ReviewStress Lab Diagnoses Essential (primary) hypertension Other chest pain Hyperlipidemia, unspecified Tobacco use Procedures CHG MYOCARDIAL SPECT MULTIPLE STUDIES Nathan Ardon MD [address] [place] [address] [place] [address] [facility] [address] [place] [address] StatusReasonSpecialtyDiagnoses / ProceduresReferred By ContactReferred To ContactClosedRadiology Diagnoses Other screening mammogram Procedures ALEJANDRO MARISOL DIGITAL SCREEN BILATERAL Vivian Lemos APRN - SUPERVISOR PICKING [employer]W [address] [place] [address] StatusReasonSpecialtyDiagnoses / ProceduresReferred By ContactReferred To ContactNot Required - RecondoRadiology Diagnoses Right upper quadrant abdominal pain Procedures US GALLBLADDER RUQ HC US ABDOMINAL LIMITED Flip Dodson APRN - CNP [address] [place] [address] SpecialtyDiagnoses / ProceduresReferred By ContactReferred To ContactRadiology Diagnoses Intermittent claudication (HCC) Procedures VL LOWER EXTREMITY ARTERIAL SEGMENTAL PRESSURES W PPG Vivian Lemos APRN - SUPERVISOR P[employer]ING CREW [address] [place] [address] Referral IDStatusReasonStart DateExpiration DateVisits RequestedVisits [id number]/29/20226/064439LbwvoxDdqmurdqLvc Pain (injury)Left sided, ongoing since Tuesday, denies injury, hurts to take a deep breathSpecialty Diagnoses / ProceduresReferred By ContactReferred To ContactRadiology Diagnoses Colon cancer screening Fatty liver Procedures US LIVER Tari Curtis MD [address] [place] [address] Referral IDStatusReasonStart DateExpiration DateVisits RequestedVisits [id number]/31/202210/31/126083QpekjdhxmFewxfhmfa / Procedures Referred By ContactReferred To Contact Diagnoses Postural syncope R55 (ICD-10-CM) - Postural syncope Procedures Tilt Table Test Tilt Table Test FL CARDIOVASCULAR FUNCTION EVAL W/TILT TABLE W/MNTR [address] - [place] CARDIOVASCULAR FUNCTION EVAL W/TILT TABLE W/MNTR Might, Vivian W, WILDLIFE 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 PICKING CREW [address] [place] [address] Referral IDStatusReasonStgipsy DateExpiration DateVisits RequestedVisits [id number]/29/202212/817752SliflkjoeFwokpggcx / Procedures Referred By ContactReferred To Contact Diagnoses Syncope and collapse Preop cardiovascular exam Dizziness Primary hypertension Mixed hyperlipidemia Tobacco abuse counseling Procedures Continuous cardiac monitoring, >2 up to 14 days Nathan Ardon MD [address] [place] [address] Referral IDStatusReasonDuncannon DateExpiration DateVisits RequestedVisits [id number] Review/[id number] / ProceduresReferred By ContactReferred To ContactRadiology Diagnoses Lumbar radiculitis Procedures MRI LUMBAR SPINE WO CONTRAST Leslie Gamez, WILDLIFE BIOLOGY TECHNICIAN - DIRECTOR TRADING [address] [place] [address] Referral IDStatusasonDuncannon DateExpiration DateVisits RequestedVisits [id number]/30/20233/108074IcbginvfsCunevybtk / Procedures Referred By ContactReferred To [facility] Diagnoses Tired Fatigue, unspecified type LAYNE (obstructive sleep apnea) Procedures Home sleep study Nathan Ardon MD [address] [place] [address] [place] [address] Referral IDStatReasonDuncannon DateExpiration DateVisits RequestedVisits [id number]/14/20232/485814CbchbrdzkWvbmejpjl / Procedures Referred By ContactReferred To Contact Diagnoses Screening for colon cancer SCREENING Procedures FL COLON CA SCRN NOT HI RSK IND FL COLONOSCOPY FLX DX W/COLLJ SPEC WHEN PFRMD FL COLONOSCOPY W/BIOPSY SINGLE/MULTIPLE FL COLSC FLX W/RMVL OF TUMOR POLYP LESION SNARE TQ COLORECTAL CANCER SCREENING, NOT HIGH RISK Tari Curtis MD [address] [place] [address] [place] [address] [facility] [address] [place] [address] Referral IDStatusasonDuncannon DateExpiration DateVisits RequestedVisits [id number] / ProceduresReferred By ContactReferred To ContactRadiology Diagnoses Thoracic neuritis M54.14 (ICD-10-CM) - Thoracic neuritis Procedures MRI THORACIC SPINE WO CONTRAST CHG MRI SPINAL CANAL THORACIC W/O CONTRAST MATRL 24169 - CHG MRI SPINAL CANAL THORACIC W/O CONTRAST DEEPIKAL Terry Brady MD [address] [facility], [address] [place] [address] Referral IDStatusReasonart DateExpiration DateVisits RequestedVisits [id number] / Procedures Referred By ContactReferred To [facility] Diagnoses LAYNE (obstructive sleep apnea) Procedures Sleep study with PAP titration Nathan Ardon MD [address] [facility] [place] [address] Referral IDStatusSpace RaceDuncannon DateExpiration DateVisits RequestedVisits [id number]/20234/[id number] of ConsciousnessX3 since 1900 with each episode [...] syncope Acute pneumonia Emanuel Danielle MD [address] [place] [address] [facility] [address] [place] [address] Referral IDStatusReasonStart DateExpiration DateVisits RequestedVisits [id number] of ConsciousnessPatient was recently discharged, patient today had syncope episode.SpecialtyDiagnoses / Procedures Referred By ContactReferred To ContactRadiology Diagnoses Recurrent pansinusitis Procedures CT SINUS W CONTRAST Might, Vivian W, WILDLIFE 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 [employer] [address] [place] [address] Referral IDStatusReasonDuncannon DateExpiration DateVisits RequestedVisits [id number]/20249/[id number] InjuryPatient states she was up walking around [...] tarsal joint of left foot [S93.315A] Procedures FL PRQ SKEL FIXJ METAR FX W/MANJ FL APPLICATION UNIPLANE EXTERNAL FIXATION SYSTEM FOOT CLOSED REDUCTION PINNING ANKLE EXTERNAL FIXATOR APPLICATION (ORTHOFIX) Meera Mike DPM [address] [facility] [place] [address] [facility] [address] [place] [address] Referral IDStatusKeishaasonDuncannon DateExpiration DateVisits RequestedVisits [id number] / ProceduresReferred By ContactReferred To ContactRadiology Diagnoses Closed dislocation of tarsal joint of left foot, initial encounter Charcot's joint of foot, left 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) Tobacco abuse Left foot pain Procedures CT FOOT LEFT WO CONTRAST Meera Mike DPM [address] [place] [address] Referral IDStatusReasonStart DateExpiration DateVisits RequestedVisits [id number]/20241/[id number] / Procedures Referred By ContactReferred To Contact Diagnoses Charcot ankle, left Diabetes (HCC) Charcot ankle, left [M14.672] Diabetes (HCC) [E11.9] Procedures FL REMOVAL EXTERNAL FIXATION SYSTEM UNDER ANES FL ARTHRODESIS SUBTALAR FL ARTHRD MIDTARSL/TARSOMETATARSAL MULT/TRANSVRS REMOVE EXTERNAL FIXATOR LEFT FOOT SUBTALAR JOINT FUSION; FUSION MIDFOOT MULTIPLE JOINTS LEFT FOOT SUBTALAR JOINT FUSION; FUSION MIDFOOT MULTIPLE JOINTS LEFT FOOT Meera Mike, DPM [address] [facility] [address] [place] [address] [facility] [address] [place] [address] Referral IDStatusReasonDuncannon DateExpiration DateVisits RequestedVisits [id number]yLi states she was here earlier to get [...] (acute kidney injury) Emanuel Danielle MD [address] [facility] [place] [address] Phone: tel: fax: [facility] [address] [place] [address] Referral IDStatusReasonDuncannon DateExpiration DateVisits RequestedVisits [id number] INFORMATION SOURCE (unrecogn ized section and content) DATE CREATED AUTHOR 10/24/2021 [facility] DATE CREATED AUTHOR AUTHOR'S ORGANIZ ATION 11/05/2021 [facility] DATE CREATED AUTHOR AUTHOR'S ORGANIZ ATION 10/30/2022 [facility] DATE CREATED AUTHOR AUTHOR'S ORGANIZ ATION 02/09/2023 [facility] DATE CREATED AUTHOR AUTHOR'S ORGANIZ ATION 09/20/2024 [facility] DATE CREATED AUTHOR AUTHOR'S ORGANIZ ATION 07/20/2025 [facility] DATE CREATED AUTHOR AUTHOR'S ORGANIZ ATION 08/05/2025 [facility] DATE CREATED AUTHOR AUTHOR'S ORGANIZ ATION 08/06/[address] [facility] Care Teams (unrecognized sec tion and content) Team Status: Active Member Role Status Dates NON STAFF Primary Care Provider Active Team Status: Inactive Member Role Status Dates NON STAFF Primary Care Provider Active Start: June 24, 2025 End: June 24, 2025JuLuis Crandall ProviderActiveStart: June 24, 2025 End: June 24, 2025Team MemberRelationshipSpecialtyStart DateEnd Date Vivian APRN [facility] PCP - GeneralFamily Nurse Practitioner05/10/18Team MemberRelationshipSpecialty Start DateEnd Date Vivian APRN - [employer] PCP - GeneralFamily Nurse Practitioner05/10/18Team MemberRelationshipSpecialty Start DateEnd Date Vivian Lemos APRN - [employer] PCP - GeneralFamily Nurse Practitioner05/10/18Team MemberRelationshipSpecialty Start DateEnd Date Vivian Lemos APRN - [employer] PCP - GeneralFamily Nurse Practitioner05/10/18Team MemberRelationshipSpecialty Start DateEnd Date Vivian Lemos APRN - [employer] PCP - GeneralFamily Nurse Practitioner8/15/18Team MemberRelationshipSpecialty Start DateEnd Date Might, Vivian Combs APRN - [employer] PCP - GeneralFamily Nurse Practitioner05/10/18 MemberRelationshipSpecialty Start DateEnd Date Might, Vivian Combs APRN - [facility] PCP - GeneralFamily Nurse Practitioner05/10/18Team MemberRelationshipSpecialty Start DateEnd Date Might, Vivian Combs APRN - [facility] PCP - GeneralFamily Nurse Practitioner05/10/18 MemberRelationshipSpecialty Start DateEnd Date Might, Vivian Combs APRN - [facility] PCP - GeneralFamily Nurse Practitioner05/10/18 MemberRelationshipSpecialty Start DateEnd Date Might, Vivian Combs APRN - [facility] PCP - GeneralFamily Nurse Practitioner05/10/18 MemberRelationshipSpecialty Start DateEnd Date Might, Vivian Combs WILDLIFE BIOLOGY TECHNICIAN - [facility] PCP - GeneralFamily Nurse Practitioner05/10/18 MemberRelationshipSpecialty Start DateEnd Date Might, Vivian Combs WILDLIFE BIOLOGY TECHNICIAN - [facility] PCP - GeneralFamily Nurse Practitioner05/10/18Team MemberRelationshipSpecialty Start DateEnd Date Might, Vivian Combs WILDLIFE 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 PCP - GeneralFamily Nurse Practitioner05/10/18Team MemberRelationshipSpecialty Start DateEnd Date Might, Vivian Combs WILDLIFE 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 PCP - GeneralFamily Nurse Practitioner05/10/18Team MemberRelationshipSpecialty Start DateEnd Date Might, Vivian Combs, WILDLIFE 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 [employer] PCP - Generalmily Nurse Practitioner05/10/18Team MemberRelationshipSpecialty Start DateEnd Date Might, Vivian Combs WILDLIFE 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 PCP - Generalmily Nurse Practitioner05/10/18Team MemberRelationshipSpecialty Start DateEnd Date Might, Vivian Combs WILDLIFE 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 [employer] PCP - Generalmily Nurse Practitioner05/10/18Team MemberRelationshipSpecialty Start DateEnd Date Might, Vivian Combs WILDLIFE 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 [employer] PCP - Generalmily Nurse Practitioner05/10/18 Team Status: Inactive Member Role Status Dates NON STAFF Primary Care Provider [facility] ProviderActiveTeam MemberRelationshipSpecialtyStart DateEnd Date Might, Vivian Combs WILDLIFE 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 [employer] [facility] Nurse Practitioner05/10/18Te MemberRelationshipSpecialty Start DateEnd Date Might, Vivian Combs WILDLIFE 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 [employer] PCP - Generalmily Nurse Practitioner05/10/18Team MemberRelationshipSpecialty Start DateEnd Date Might, Vivian Combs WILDLIFE 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 [employer] PCP - GeneralFamily Nurse Practitioner05/10/18Team MemberRelationshipSpecialty Start DateEnd Date Might, Vivian Combs WILDLIFE 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 [employer] PCP - Generalmily Nurse Practitioner05/10/18Team MemberRelationshipSpecialty Start DateEnd Date Might, Vivian Combs WILDLIFE 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 PCP - Generalmily Nurse Practitioner05/10/18Team MemberRelationshipSpecialty Start DateEnd Date Vivian Lemos APRN [facility] PCP - Generalmily Nurse Practitioner05/10/18Team MemberRelationshipSpecialty Start DateEnd Date Vivian Lemos APRN [facility] PCP - Generalmily Nurse Practitioner05/10/18Team MemberRelationshipSpecialty Start DateEnd Date Vivian Lemos APRN [facility] PCP - [facility] Nurse Practition[facility]05/10/18Team MemberRelationshipSpecialty Start DateEnd Date Vivian Lemos APRN [facility] PCP - [facility] Nurse Practitioner05/10/18Team MemberRelationshipSpecialty Start DateEnd Date Vivian Lemos APRN [facility] - [facility] Nurse Practition[facility]05/10/18Team MemberRelationshipSpecialty Start DateEnd Date Vivian Lemos APRN [facility] PCP - Generalmily Nurse Practitioner05/10/18Team MemberRelationshipSpecialty Start DateEnd Date Vivian Lemos APRN [facility] PCP - Generalmily Nurse Practitioner05/10/18Team MemberRelationshipSpecialty Start DateEnd Date Vivian Lemos APRN [facility] PCP - GeneralFamily Nurse Practitioner05/10/18Team MemberRelationshipSpecialty Start DateEnd Date Vivian Lemos APRN [facility] PCP - GeneralFamily Nurse Practitioner05/10/18Team MemberRelationshipSpecialty Start DateEnd Date Vivian Lemos APRN [facility] PCP - Generalmily Nurse Practitioner05/10/18Team MemberRelationshipSpecialty Start DateEnd Date Vivian Lemos APRN [facility] PCP - [facility] Nurse Practitioner05/10/18Team MemberRelationshipSpecialty Start DateEnd Date Vivian Lemos APRN [facility] PCP - [facility] Nurse Practitioner05/10/18Team MemberRelationshipSpecialty Start DateEnd Date Vivian Lemos APRN [facility] PCP - [facility] Nurse Practitioner05/10/18Team MemberRelationshipSpecialty Start DateEnd Date Vivian Lemos APRN [facility] PCP - Generalmily Nurse Practitioner05/10/18Team MemberRelationshipSpecialty Start DateEnd Date Vivian Lemos APRN [facility] PCP - Generalmily Nurse Practitioner05/10/18Team MemberRelationshipSpecialty Start DateEnd Date Vivian Lemos APRN [facility] PCP - GeneralFamily Nurse Practitioner05/10/18Team MemberRelationshipSpecialty Start DateEnd Date Vivian Lemos APRN [facility] PCP - GeneralFamily Nurse Practitioner05/10/18Team MemberRelationshipSpecialty Start DateEnd Date Vivian Lemos APRN [facility] PCP - Generalmily Nurse Practitioner05/10/18Team MemberRelationshipSpecialty Start DateEnd Date Vivian Lemos APRN [facility] P[facility] Nurse Practitioner05/10/18Team MemberRelationshipSpecialty Start DateEnd Date Vivian Lemos APRN [facility] PCP - [facility] Nurse Practitioner05/10/18Team MemberRelationshipSpecialty Start DateEnd Date Vivian Lemos APRN [facility] PCP - Generalmily Nurse Practitioner05/10/18Team MemberRelationshipSpecialty Start DateEnd Date Vivian Lemos APRN [facility] PCP - Generalmily Nurse Practitioner05/10/18Team MemberRelationshipSpecialty Start DateEnd Date Vivian Lemos APRN [facility] PCP - Generalmily Nurse Practitioner05/10/18Team MemberRelationshipSpecialty Start DateEnd Date iVvian Lemos APRN [facility] PCP - GeneralFamily Nurse Practitioner05/10/18Team MemberRelationshipSpecialty Start DateEnd Date Vivian Lemos APRN [facility] PCP - GeneralFamily Nurse Practitioner05/10/18Team MemberRelationshipSpecialty Start DateEnd Date Vivian Lemos APRN [facility] PCP - GeneralFamily Nurse Practitioner05/10/18Team MemberRelationshipSpecialty Start DateEnd Date Vivian Lemos APRN [facility] PCP - Generalmily Nurse Practitioner05/10/18Team MemberRelationshipSpecialty Start DateEnd Date Vivian Lemos APRN [facility] PCP - GeneralFamily Nurse Practitioner05/10/18Team MemberRelationshipSpecialty Start DateEnd Date Vivian Lemos APRN [facility] PCP - GeneralFamily Nurse Practitioner05/10/18Team MemberRelationshipSpecialty Start DateEnd Date Vivian Lemos APRN [facility] PCP - GeneralFamily Nurse Practitioner05/10/18Team MemberRelationshipSpecialty Start DateEnd Date Vivian Lemos APRN [facility] PCP - GeneralFamily Nurse Practitioner05/10/18Team MemberRelationshipSpecialty Start DateEnd Date Vivian Lemos APRN [facility] PCP - GeneralFamily Nurse Practitioner05/10/18Team MemberRelationshipSpecialty Start DateEnd Date Vivian Lemos APRN [facility] PCP - GeneralFamily Nurse Practitioner05/10/18Team MemberRelationshipSpecialty Start DateEnd Date Vivian Lemos APRN [facility] PCP - GeneralFamily Nurse Practitioner05/10/18Team MemberRelationshipSpecialty Start DateEnd Date Vivian Lemos APRN [facility] PCP - Generalmily Nurse Practitioner05/10/18Team MemberRelationshipSpecialty Start DateEnd Date Vivian Lemos APRN [facility] P[facility] - [facility] Nurse Practitioner05/10/18Team MemberRelationshipSpecialty Start DateEnd Date Vivian Lemos APRN [facility] PCP - GeneralFamily Nurse Practitioner05/10/18Team MemberRelationshipSpecialty Start DateEnd Date Vivian Lemos APRN [facility] PCP - GeneralFamily Nurse Practitioner05/10/18Team MemberRelationshipSpecialty Start DateEnd Date Vivian Lemos APRN [facility] PCP - Generalmily Nurse Practitioner05/10/18Team MemberRelationshipSpecialty Start DateEnd Date Vivian Lemos APRN [facility] PCP - GeneralFamily Nurse Practitioner05/10/18Te MemberRelationshipSpecialty Start DateEnd Vivian Lemos [facility] PCP - GeneralFamily Nurse Practitioner05/10/18Te MemberRelationshipSpecialty Start DateEnd Date Vivian Lemos [facility] PCP - GeneralFamily Nurse Practitioner05/10/18 Ordered [...] * 0824 (Given - Provider: Makayla Leon BREANNA) * 0834 (Given - Provider: Joanie Donovan, [...] Nam, BREANNA) * 08 (Given - Provider: Joanie Donovan, BREANNA) * 2113 (Given - Provider: [...] Donovan, RN) * 2116 (Given - Provider: Cheyenne Poon, BREANNA) * 0652 (Given - Provider: [...] Poon RN) * 0652 (Given - Provider: Yuleit Galaviz, BREANNA) * 1131 (Given - Provider: Yuliet Galaviz, BREANNA) Medication Order06/12//// sterile water injection (COMPLETED) 1 dose, Starting on 06/12/23 at 0814, Until 06/12/23 at 0825, Mkaayla Leon: cabinet override, Makayla Leon: cabinet override [...] * 2100 (Due - Provider: Good Hawley [facility]) cetirizine (ZYRTEC) tablet 10 mg [...] check * 0023 (Given - Provider: Stella oL RN) * 0839 (Not Given - Provider: Jesse Duron RN [...] 0818 (Given - Provider: Annemarie Mcintosh RN) * 1216 (Not Given - Provider: [...] Mcintosh RN) * 1411 (Given - Provider: Annemaire Mcintosh RN) * 1700 (Due) * 2100 [...] RN) * 0512 (Given - Provider: Stella Lo RN) * [...] * 0807 (Given - Provider: Johnathan Lara, WILDLIFE BIOLOGY TECHNICIAN - BRINE PURIFIER) ceFAZolin (ANCEF) 2000 mg in 20 mL [...] Tue09/14/24 at 1400, Last dose on Tue09/20/24 [id number], Labeling may look different. 25 [id number] Units. Please double check dosages. * 1602 [...] for injection by adding 1 mL of supervisor fruit grading-supplied sterile diluent or sterile water for injection [...] * 2099 (Due - Provider: Ting Hawthorne [facility]) budesonide-formoterol (SYMBICORT) 160-4.5 MCG/ACT inhaler 2 puff [...] * 2099 (Due - Provider: Ting Hawthorne [facility]) insulin lispro (HUMALOG,ADMELOG) injection vial 0-8 Units [...] * 2100 (Due - Provider: Ting Hawthorne [facility]) sodium chloride 0.9 % bolus 1,000 mL [...] mL IV syringe (COMPLETED) 2,000 mg, IntraVENous, FEEDER SWITCHBOARD OPERATOR TO O.R., 1 dose, On Tue07/23/25 at 0700, Antimicrobial Indications:Surgical Prophylaxis, Administer within 1 hour prior to incision. Repeat in 2 hours after initial dose if still intra-op. Administer over 5 mins. Reconstitute 2 g vial with 20 mL Sterile Water. Withdraw entire contents., Pre-op (day of surgery) * 0753 (New Bag - Provider: Brittney Mitchell, JOSSE - BRINE PURIFIER) dimenhyDRINATE (DRAMAMINE) tablet 50 mg (COMPLETED) 50 [...] BE BASED ON THE PRIMARY CLINICAL RECORDS. [employer] [facility]. provides no warranty or guarantee of the accuracy or completeness of information in this document.
[2025-08-19 09:37] VITALS: BP 121/74; PULSE 100; TEMP 36.6; O2SAT 97
[2025-08-19 10:15] VITALS: BP 135/74; BP 137/74; PULSE 18; O2SAT 100; O2SAT 98
[2025-08-19] MEDS: IOHEXOL 240 MG/ML - 10 ML VIAL INJ (10:17)
[2025-08-19] MEDS: LIDOCAINE HCL 2% 400 MG/20 ML MDV 15 ML INJ (10:17)
[2025-08-19] MEDS: BUPIVACAINE HCL 0.25% PF 25 MG/10 ML VIAL 5 ML INJ (10:17)
[2025-08-19] MEDS: METHYLPREDNISOLONE ACETATE 40 MG/ML VIAL IM (10:17)
[2025-08-19] MEDS: METHYLPREDNISOLONE ACETATE 40 MG/ML VIAL INJ (10:17)
--- NOTE | 2025-08-19 10:18 | W.PM.PROCNOT ---
Date of procedure: 08/19/25 Pre-op diagnosis: Pain due to bilateral sacroiliitis Post-op diagnosis: same as pre-op Procedure: Procedure: Bilateral sacroiliac joint injection Medications: Bupivacaine 0.25% 4cc, depomedrol 40mg x2 After informed consent was obtained, the patient was brought to the medical procedure unit and placed in the prone position, when a timeout was completed verifying correct patient, procedure, site, positioning, implant, and/or special equipment.? The skin overlying the area was prepped and draped in standard sterile fashion using alcohol.? A 25-gauge needle was inserted towards the left sacroiliac joint under direct fluoroscopic imaging.? Needle tip was advanced until the joint was encountered.? We instilled a total of 2 mL of solution.? The same procedure was then completed on the right side.? Postoperatively needles were removed.? The patient tolerated the procedure well without complication.? The patient reported reduction in pain symptoms postoperatively. Anesthesia: Local Surgeon: Alexander Story Pathology: none sent Condition: stable Disposition: no change
== END 2025-08-19 10:22 | disposition home or self-care (01) ==
PROVIDERS: Visit Provider Anesthesiology
DX: M46.1 Sacroiliitis, not elsewhere classified (principal); G89.29 Other chronic pain; Z79.85 Long-term (current) use of injectable non-insulin antidiabetic drugs; Z79.84 Long term (current) use of oral hypoglycemic drugs
CPT/HCPCS: 27096; 36415; 82948; J0665; J1010; Q9966

== ENCOUNTER 2025-08-29 13:04 | Outpatient (OUT) | payer OTHER, SELFPAY ==
--- OUTSIDE RECORDS SUMMARY | 2025-08-29 13:17 | XMS_ITS | CCD ---
Author Organization [facility] Care Team Providers Care Counter Clerk Name Role Phone Might, Vivian Combs Primary Care Provider [phone] MIGHT, VIVIAN W Primary Care Unavailable CLAUDIA WILLETT Referring Unavailable Might TELEPHONE STATION REPAIRER - RECEPTIONIST DOCTOR'S OFFICE, Vivian W Primary Care Provider Might TELEPHONE STATION REPAIRER - RECEPTIONIST DOCTOR'S OFFICE, Vivian W Primary Care Provider Might TELEPHONE STATION REPAIRER - RECEPTIONIST DOCTOR'S OFFICE, Vivian W Primary Care Provider Might TELEPHONE STATION REPAIRER - RECEPTIONIST DOCTOR'S OFFICE, Vivian W Primary Care Provider Might TELEPHONE STATION REPAIRER - RECEPTIONIST DOCTOR'S OFFICE, Vivian W Primary Care Provider Might TELEPHONE STATION REPAIRER - RECEPTIONIST DOCTOR'S OFFICE, Vivian W Primary Care Provider NON STAFF Primary Care Provider UnavailMD Shiraz Joyner Attending Provider [phone] NON STAFF Primary Care Unavailable Shiraz Sherman [...] vailable MISC, DR GAFFNEY Primary Care Unavailable [place], DR PHILLIP Reilly Consulting Unavailable LAKSHMIPATHY ., [...] GAFFNEY Primary Care Unavailable [place] ., DR JASEPR Grider Attending Unavailable [place] ., DR JASPER Grider Admitting Unavailable GAMEZ ., LESLIE Consulting Unavailable MISC, DR GAFFNEY Primary Care Unavailable [place] ., DR JASPER Grider Attending Unavailable [place] ., DR JASPER Grider Admitting Unavailable [place] ., DR JASPER Grider Consulting Unavailable THORPEVERN LEDESMA Consulting Unavailable Might TELEPHONE STATION REPAIRER - RECEPTIONIST DOCTOR'S OFFICE, Vivian W Primary Care Provider Might TELEPHONE STATION REPAIRER - RECEPTIONIST DOCTOR'S OFFICE, Vivian W Primary Care Provider MIGHT, VIVIAN [...] Unavailable MIKE, KHASE A Referring Unavailable MIGHT, VIIVAN W Primary Care Unavailable MIKE, KHASE A [...] MIGHT, VIVIAN W Primary Care Unavailable Chiquis TELEPHONE STATION REPAIRER-RECEPTIONIST DOCTOR'S OFFICE, Rolan Grier Attending Unavailab le Might TELEPHONE STATION REPAIRERFRANCISCAN CHIL[facility], [facility] Care Un available Might TELEPHONE STATION REPAIRER-[facility], [facility] Care Un available Chiquis TELEPHONE STATION REPAIRER-RECEPTIONIST DOCTOR'S OFFICE, Rolan Grier Attending Unavailab le Might TELEPHONE STATION REPAIRER-[facility], [facility] Care Un available Chiquis TELEPHONE STATION REPAIRER-RECEPTIONIST DOCTOR'S OFFICE, Rolan D Attending Unavailab le Jez MULLEN, Alexander Lemus Attending Unavailable Might TELEPHONE STATION REPAIRERFRANCISCAN CHILDREN'[facility], [facility] Un available Mascaro PA-CKarri Attending Unavail able Might TELEPHONE STATION REPAIRERFRANCISCAN CHILDREN'[facility], [facility] Care Un available Might TELEPHONE STATION REPAIRERFR[facility]ISCAN CH[facility], [facility] Un available Brock Gaitan MD Attending Unavaila ble Might TELEPHONE STATION REPAIRERFRANCISCAN CHIL[facility], [facility] Un available Mascaro PA-C, Karri Goldberg Attending Unavail able Might TELEPHONE STATION REPAIRERFRANCISCAN CHILDREN'[facility], [facility] Care Un available Mascaro PA-CKarri Attending Unavail able Mascaro PA-C, Karri Glodberg Attending Unavail able Might TELEPHONE STATION REPAIRERFRANCISCAN CHIL[facility], [facility] Care Un available [place] TELEPHONE STATION REPAIRER-RECEPTIONIST DOCTOR'S OFFICE, Rolan Grier Attending Unavailab le Might TELEPHONE STATION [facility]ERAPI [facility], [facility] Un available Allergies Allergy ClassificationReported Allergen(s)Allergy TypeDate of OnsetReaction(s) FacilityPenicillins (antibiotic) (10 sources)PenicillinsDrug Uxdryvt79-90-0850TourUiutc Health (20 sources)PenicillinsPropensity to adverse reactions to njok66-02-6743XpovS[place], [place] (20 sources)PenicillinsPropensity to adverse reactions to stli48-48-5781PhrwETJLifePoint Health (1 source)PenicillinsDrug allergy (disorder)66-65-3052XuytkzmyiSy[facility] (3 sources)penicillAMINEDrug Xuekqyw68-99-2826DstciygTzvburmxgOur Lady of Mercy Hospital (1 source)PenicillinsDrug allergy (disorder)50-50-5440Ays [facility] Repository (1 source)Penicillin; Translations: [penicillin]Drug AllergyMer[facility] Rep[facility] Medications Current Medications MedicationDrug Class(es)DatesSig (Normalized)Sig (Original)acetaminophen 500 mg oral tablet (20 sources)Start: 26-56-8054fkgq 4000 mg by mouth every twenty-four hours1,000 mg, Oral, ONCE, 1 dose, On Tue07/23/25 at 0700, Maximum dose of acetaminophen is 4000 mg from all sources in 24 hours., Pre-op (day of surgery)Start: 74-34-0216dcdqxvrthzpcn (TYLENOL) tablet 650 mgStart: 35-82-4103bnuokxkcfmxar (TYLENOL) tablet 650 mgStart: ,000 mg, Oral, ONCE, 1 dose, On Tue09/14/24 at 0630, Administer 60 minutes prior to surgery., Pre-op (day of surgery)Start: 07-26-2024 End: 87-87-9945afwd 1 tablet by mouth three times dailyacetaminophen [...] prior to surgery., Pre-op (day of surgery)Start: 04-83-3719iwputyukcwvwd (TYLENOL) tablet 650 mg End: 66-34-9143gkgw 1 tablet by mouth every six hours as needed for pain acetaminophen (TYLENOL) 500 MG tablet Take 1 tablet by mouth every 6 hours as needed for Pain 07/26/2024 Discontinued (Stop Taking at Discharge)acetaminophen 325 mg / HYDROcodone bitartrate 5 mg oral tablet (20 sources)Opioid AgonistStart: 09-14-2024 End: 06-64-0730AHTLAcvbfae-acetaminophen (NORCO) 5-325 MG per tablet Indications: Post-op pain Take 1 tablet by mouth every 6 hours as needed for Pain for up to 7 days. Intended supply: 5 days. Take lowest dose possible to manage pain Max Daily Amount: 4 tablets 28 tablet 09/14/2024 09/21/2024 Active Start: 07-18-2024 End: 96-37-5540NKPLFqvjgwd-acetaminophen (NORCO) 5-325 MG per tablet Indications: Closed dislocation of tarsal joint of left foot, initial encounter , Charcot ankle, left Take 1 tablet by mouth every 4 hours as needed for Pain for up to 5 days. Intended supply: 5 days. Take lowest dose possible to manage pain MaxDaily Amount: 6 tablets 30 tablet 07/18/2024 07/26/2024 Discontinued (Stop Taking at Discharge)Start: 08-06-2022 End: 87-34-7439AYHIVxuiuuj-acetaminophen (NORCO) 5-325 MG per tablet 1 tablet Start: 04-23-2022 End: 60-37-8778rkzg 1 tablet by mouth twice daily as needed for painHydrocodone- Acetaminophen 5-325 mg tablet Discontinued 1 TAB PO Twice daily as needed for Pain September 21, 2022 1:00am June 24, 2025 12:22pmHYDROcodone- Acetaminophen 5-325 MG Oral for 30 Days Activeacetaminophen 325 mg / oxyCODONE hydrochloride 5 mg oral tablet (2 sources)Opioid AgonistStart: 07-26-2024 End: 12-40-0452bhkLCRYCJ-acetaminophen (PERCOCET) 5-325 MG per tablet Indications: Post-op pain Take 1 tablet by mouth in the morning and at bedtime for 8 days. Intended supply: 5 days. Take lowest dose possible tomanage pain Max Daily Amount: 2 tablets 16 tablet 07/26/2024 08/03/2024 ActiveStart: 07-24-2024 oxyCODONE-acetaminophen (PERCOCET) 5-325 MG per tablet 1 [id number] 200 actuat albuterol 0.09 mg/actuat metered dose inhaler (20 sources)beta2-Adrenergic AgonistStart: 38-61-5533Ysnvh: 07-25-2024 End: 20-62-1572aotg 2 puff(s) by mouth four times daily as needed for wheezing albuterol sulfate HFA (PROVENTIL;VENTOLIN;PROAIR) 108 (90 Base) MCG/ACT inhaler Indications: Acute bronchitis, unspecified organism INHALE 2 PUFFS BY MOUTH INTO THE LUNGS 4 TIMES DAILY NEEDED FOR WHEEZING 9 g 2 07/25/2024 04/11/2025 Discontinued (LIST CLEANUP)Start: 15-35-0709Avqgm: 05-09-2024 End: 73-85-5762vzyf 2 puff(s) by mouth four times daily for wheezingalbuterol sulfate HFA (PROVENTIL;VENTOLIN;PROAIR) 108 (90 Base) MCG/ACT inhaler Indications: Acute bronchitis, unspecified organism inhale 2 puffs by mouth and INTO THE LUNGS four times a day if needed for wheezing 8.5 g 2 05/09/2024 07/25/2024 DiscontinuedStart: 22-08-4089abux 2 puff(s) by mouth four times daily for wheezingalbuterol sulfate HFA (PROVENTIL;VENTOLIN;PROAIR) 108 (90 Base) MCG/ACT inhaler Indications: Acute bronchitis, unspecified organism inhale 2 puffs by mouth and INTO THE LUNGS four times a day if needed for wheezing 8.5 g 2 08/24/2023 ActiveStart: 26-03-2522fqdkkqamh (PROVENTIL) (2.5 MG/3ML) 0.083% nebulizer solution 2.5 mgStart: 06-11-2023 End: .5 mg, Nebulization, EVERY 2 HOURS PRN, Starting on 06/11/23 at 0043, Until 06/11/23 at 0345, Wheezing Initiate RT Bronchodilator Protocol: YesStart: 30-34-4040nxkb 2 puff(s) by mouth four times daily for wheezingalbuterol sulfate HFA (PROVENTIL;VENTOLIN;PROAIR) 108 (90 Base) MCG/ACT inhaler Indications: Acute bronchitis, unspecified organism inhale 2 puffs by mouth and INTO THE LUNGS four times a day if needed for wheezing 8.5 g 2 03/25/2023 ActiveStart: 09-21-2022 End: 24-22-4404hfbf 1 puff(s) by inhalation four times daily as needed for wheezingAlbuterol Sulfate 90 mcg/actuation HFA aerosol inhaler Discontinued 2 PUFF INHALATION Four times daily as needed for Shortness Of Breath Or Wheezing September 21, 2022 1:00am June 24, 2025 12:16pmStart: 45-57-6642fdlh 2 puff(s) by mouth four times daily [...] for Wheezing 1 each 1 08/03/2021 ActiveStart: 81-42-2393klnt 2 puff(s) by inhalation four times daily as needed for wheezingalbuterol sulfate HFA (VENTOLIN HFA) 108 (90 Base) MCG/ACT inhaler Indications: Acute bronchitis, un specified organism Inhale 2 puffs into the lungs 4 times daily as needed for Wheezing 1 Inhaler 0 04/28/2020 ActiveStart: 18-26-2637xkob 2 puff(s) by inhalation four times daily [...] mg/ml inhalation solution (3 sources)Anticholinergic, beta2-Adrenergic AgonistStart: 66-66-4354smuhozekqns 0.5 mg-albuterol 2.5 mg (DUONEB) nebulizer solution 1 DoseStart: 06-11-2023 End: 42-31-3528bjwdseluhuh 0.5 mg-albuterol 2.5 mg (DUONEB) nebulizer solution 1 Dosealendronic acid 70 mg oral tablet (20 sources)BisphosphonateStart: 86-89-7631swuarlqqfny (FOSAMAX) 70 MG tablet Indications: Other osteoporosis [...] chloride 200 mg/ml topical solution (13 sources)Start: 83-99-5550ifplehev chloride (DRYSOL) 20 % external solution Indications: Gustatory sweating Apply topically nightly. 60 mL 2 09/28/2023 Activeaspirin 81 mg delayed release oral tablet (20 sources)Platelet Aggregation Inhibitor, Nonsteroidal Anti-inflammatory Drug Start: 30-35-3837ndqt 1 tablet by mouth once dailyaspirin 81 MG EC tablet Take 1 tablet by mouth daily 30 tablet 3 06/01/2025 ActiveStart: 32-04-9412cklj 1 tablet by mouth once dailyaspirin 81 MG EC tablet Take 1 tablet by mouth daily 30 tablet 3 06/01/2025 ActiveStart: 30-68-0077zroi 81 mg by mouth once daily81 mg, Oral, DAILY, First dose on Tue05/31/25 at 0900, Until Discontinued, Do not crush or break.Start: 64-11-9838vkdr 81 mg by mouth once daily81 mg, Oral, DAILY, First dose on 09/15/24 at 1100, Until DiscontinuedStart: 09-14-2024 End: 08-22-9986twqa 325 mg by mouth once mg, Oral, DAILY, First dose on Olena 05/30/25 at 1500, Until Discontinued, Do not crush or break.Start: 07-24-2024 take 81 mg by mouth once daily81 mg, Oral, DAILY, First dose (after last modification) on Tue07/24/24 at 1200, Until DiscontinuedStart: 49-41-4975zawb 81 mg by mouth once daily81 mg, Oral, DAILY, First dose on 06/11/23 at 0900, Until Discontinuedtake 1 tablet by mouth once dailyaspirin 81 MG tablet Take 1 tablet by mouth daily Activeatorvastatin 80 mg oral tablet (20 sources)HMG-CoA Reductase InhibitorStart: 18-90-4388Fsttcdxblejv 80 mg tablet Active 40 MG PO Daily at bedtime June 24, 2025 12:17pm Complies with drug therapyStart: 63-38-1001pigl 1 tablet by mouth once dailyatorvastatin (LIPITOR) 40 MG tablet Take 1 tablet by mouth daily 90 tablet 3 05/28/2025 ActiveStart: 05-16-2024 End: 55-54-9915grvr 1 tablet by mouth once dailyatorvastatin (LIPITOR) 40 MG tablet Take 1 tablet by mouth daily 90 tablet 3 05/23/2025 ActiveStart: 88-79-4287hwbg 80 mg by mouth once daily80 mg, Oral, NIGHTLY, First dose on 06/11/23 at 0100, Until DiscontinuedStart: 08-24-2018 End: 53-01-1455mjbg 1 tablet by mouth once dailyatorvastatin (LIPITOR) 80 MG tablet Take 1 tablet by mouth daily 09/11/2024 Activeazelastine hydrochloride 0.137 mg/actuat metered dose nasal spray (6 sources)Histamine-1 Receptor AntagonistStart: 76-46-3678Xhewrzbjdb 137 mcg (0.1 %) spray,non-aerosol Active INTRANASAL June 24, 2025 12:00am Complies with drug therapyazelastine (ASTELIN) 0.1 % nasal spray 1 spray by Nasal route in the morning and at bedtime Activebetamethasone 0.0005 mg/mg topical ointment (20 sources)CorticosteroidStart: 03-24-2022 End: 14-87-1260drrmsgtjbunrj dipropionate (DIPROLENE) 0.05 % ointment Indications: Ear itching Apply topically daily. 15 g 0 03/24/2022 06/14/2023 Discontinued (Stop Taking at Discharge)Betamethasone Dipropionate 0.05 % External for 10 Days Activebetamethasone 0.5 mg/ml / clotrimazole 10 mg/ml topical cream (20 sources)Azole Antifungal, CorticosteroidStart: 48-84-7596bphuicjsousz- betamethasone (LOTRISONE) 1-0.05 % cream Indications: Vaginal yeast infection APPLY TWICE A DAY NEEDED FOR VULVAR ITCHING NOT TO EXCEED 6 WEEKS CONTINUOUS USAGE 15 g 3 09/21/2018 Activecalcium chloride 0.0014 meq/ml / potassium chloride 0.004 meq/ml / sodium chloride 0.103 meq/ml / sodium lactate 0.028 meq/ml injectable solution (2 sources)Start: 19-31-6566VhnrlBJQukd, at 100 mL/hr, CONTINUOUS, Starting on Tue07/23/25 at 0700, Pre-op (day of surgery)Start: 31-91-6322wnatfcgr ringers IV soln infusionceFAZolin (ANCEF) 2000 mg in 20 mL IV syringe (2 sources)Start: ,000 mg, IntraVENous, EVERY 8 HOURS, First dose on Tue09/14/24 at 1600, Administer over 5 mins.Start: ,000 mg, IntraVENous, EVERY 8 HOURS, First dose on Tue07/24/24 at 0000, Administer over 5 mins.cefdinir 300 mg oral capsule (1 source)Cephalosporin AntibacterialStart: 05-17-2024 End: 44-67-3110ihww 1 capsule by mouth twice dailycefdinir (OMNICEF) [...] duration of therapy: 5 daysStart: 06-10-2023 End: 23-43-9940kvtFTKBGfgf (ROCEPHIN) 1,000 mg in sodium chloride 0.9 % 50 mL IVPB (mini-bag)celecoxib 100 mg oral capsule (11 sources)Nonsteroidal Anti-inflammatory DrugStart: 84-39-4902ugzq 1 capsule by mouth twice dailycelecoxib (CELEBREX) 100 MG capsule Take 1 capsule by mouth 2 times daily 180 capsule 1 03/18/2021 ActiveStart: 82-32-5437hqsz 1 capsule by mouth twice dailycelecoxib (CELEBREX) 100 MG capsule Indications: Multiple joint pain Take 1 capsule by mouth 2 times daily 180 capsule 1 09/16/2020 Active cetirizine hydrochloride 10 mg oral tablet (19 sources)Histamine-1 Receptor AntagonistStart: 48-20-0775xhsb 1 tablet by mouth once dailycetirizine (ZYRTEC) 10 MG tablet Take 1 tablet by mouth once daily 90 tablet 3 07/28/2025 ActiveStart: 06-12-2025 End: 91-79-6915leeq 1 tablet by mouth once dailycetirizine (ZYRTEC) 10 MG tablet Take 1 tablet by mouth daily 90 tablet 3 06/12/2025 ActiveStart: 58-85-595816 mg, Oral, DAILY, First dose on Tue05/30/25 at 0900, Until Discontinued, Substituted for Fexofenadine (JODIE).Start: 74-71-6804mzqg 10 mg by mouth once daily10 mg, Oral, DAILY, First dose on Tue09/15/24 at 0900, Until Discontinued, Substituted for Levocetirizine (XYZAL).Start: 58-04-3534paah 10 mg by mouth once daily10 mg, Oral, NIGHTLY, First dose (after last modification) on Tue07/24/24 at 2100, Until Discontinued, Substituted for Levocetirizine (XYZAL).Start: 75-13-7593zpwzbsbysn (ZYRTEC) tablet 10 mgcholecalciferol 0.025 mg oral tablet (1 source)Vitamin DStart: 09-14-2024 End: 45,000 Units, Oral, DAILY, 7 doses, First dose on Tue09/14/24 at 1400, Last dose on Olena 09/20/24 [id number], Labeling may look different. 25 cmt=5551 Units. Please double check dosages.ciprofloxacin 3 mg/ml / dexamethasone 1 mg/ml otic suspension (3 sources)Corticosteroid, Quinolone AntimicrobialStart: 01-17-2025 End: 08-35-6400uzizxjhszgpen-dexAMETHasone (CIPRODEX) 0.3-0.1 % otic suspension Indications: Acute diffuse otitis externa of both ears Place 4 drops into both ears 2 times daily for 10 days 7.5 mL 01/17/2025 01/27/2025 Activecodeine phosphate 2 mg/ml / guaiFENesin 20 mg/ml oral solution (3 sources)Opioid AgonistStart: 30-52-5711mohbVMChvns-codeine (GUAIFENESIN AC) 100-10 MG/5ML liquid 5 mLStart: 64-27-3096ikbw 10 mL by mouth every four hours before mealtime for coughguaiFENesin-codeine (GUAIFENESIN AC) 100-10 MG/5ML liquid take 10 milliliters by mouth every 4 hours if needed for cough fo... (REFER TO PRESCRIPTION NOTES). 0 05/31/2023 ActiveContinuous Blood Gluc Sensor (FREESTYLE AUTUMN 14 DAY SENSOR) MISC (20 sources)Start: 46-60-8688Zmqxtygsqd Blood Gluc Sensor (FREESTYLE AUTUMN 14 DAY SENSOR) MISC 01/28/2021 SuspendedStart: 59-51-4272Xuqmpbbjsu Blood Gluc Sensor (FREESTYLE AUTUMN 14 DAY SENSOR) MISC 01/28/2021 ActiveStart: 01-28-2021 Continuous Blood Gluc Sensor (FREESTYLE AUTUMN 14 DAY SENSOR) MISCStart: 82-84-6799Lybgwtejvq Blood Gluc Sensor (FREESTYLE AUTUMN 14 DAY [...] release oral tablet (20 sources)Nonsteroidal Anti-inflammatory DrugStart: 71-12-3605puzbraswst (VOLTAREN) 75 MG EC tablet 06/18/2021 Activedicyclomine hydrochloride 20 mg oral tablet (17 sources)AnticholinergicStart: 63-83-4491hgsn 1 tablet by mouth three times dailydicyclomine (BENTYL) 20 MG tablet Indications: Irritable bowel syndrome with diarrhea Take 1 tabletby mouth three times daily 270 tablet 0 09/10/2019 ActiveStart: 12-85-0546bxcg 1 tablet by mouth three times dailydicyclomine (BENTYL) 20 MG tablet Indications: Irritable bowel syndrome with diarrhea Take 1 tabletby mouth three times daily 270 tablet 0 03/23/2019 Activedoxycycline hyclate 100 mg oral tablet (20 sources)Tetracycline-class DrugStart: 11-28-2024 End: 64-34-6537ydlz 1 tablet by mouth twice dailydoxycycline hyclate (VIBRA- TABS) 100 MG tablet Indications: Acute recurrent pansinusitis Take 1 tablet by mouth 2 times daily for 10 days 20 tablet 11/28/2024 12/08/2024 ActiveStart: 09-15-2024 End: 82-55-2319uxew 1 tablet by mouth twice dailydoxycycline hyclate (VIBRA- TABS) 100 MG tablet Take 1 tablet by mouth 2 times daily for 7 days 14 tablet 09/15/2024 09/22/2024 ActiveStart: 07-26-2024 End: 65-03-0248ovrd 1 tablet by mouth once dailydoxycycline hyclate (VIBRA-TABS) 100 MG tablet Take 1 tablet by mouth daily for 10 days 10 tablet 07/26/2024 08/05/2024 ActiveStart: 09-23-2022 End: 74-12-7907kqtp 1 tablet by mouth twice dailydoxycycline hyclate (VIBRA- TABS) 100 MG tablet Indications: Acute non-recurrent pansinusitis Take 1tablet by mouth 2 times daily for 10 days 20 tablet 0 09/23/2022 10/03/2022 Active Start: 29-56-0139tait 1 tablet by mouth twice dailydoxycycline hyclate (VIBRA- TABS) 100 MG tablet Take 1 tablet by mouth 2 times daily 20 tablet 0 06/09/2022 ActiveStart: 10-17-2019 End: 79-14-0292onwj 1 tablet by mouth twice dailydoxycycline hyclate [...] capsule (20 sources)Serotonin and Norepinephrine Reuptake InhibitorStart: 98-64-5961tnzz 1 capsule by mouth once dailyDULoxetine (CYMBALTA) 60 MG extended release capsule Take 1 capsule by mouth nightly 01/29/2021 ActiveStart: 70-00-0398ectj 1 capsule by mouth once daily in the eveningDULoxetine (CYMBALTA) 30 MG extended release capsule take 1 capsule by mouth every evening 0 07/02/2020 Active empagliflozin 10 mg oral tablet (20 sources)Sodium-Glucose Cotransporter 2 InhibitorStart: 43-17-2078AFPBMDTYE 10 MG tablet 06/12/2024 ActiveStart: 70-81-3241kexh 10 mg by mouth three times daily10 mg, Oral, DAILY, First dose on 06/11/23 at 0900, Until Discontinued Indication of Use: Heart Failure (preserved EF) Note: Discontinuation of SGLT2 inhibitor therapy 3 days prior to surgery or major procedures is recommended given the risk for euglycemic diabetic ketoacidosis.Start: 99-96-3780MEGRYGRII 10 MG tablet 1 tablet daily 06/12/2024 Activeerythromycin 0.005 mg/mg ophthalmic ointment (7 sources)Macrolide, Macrolide AntimicrobialStart: 64-04-1030yluov 3.5 g into the eye(s) every six hourserythromycin (ROMYCIN) 5 MG/GM ophthalmic ointment Indications: Acute bacterial conjunctivitis of right eye Place into the right eye every 6 hours 3.5 g 0 09/23/2022 Activeestradiol 1 mg oral tablet (13 sources)EstrogenStart: 04-97-2531qfdh 1 tablet by mouth once dailyestradiol (ESTRACE) 1 MG tablet Take 1 tablet by mouth daily 30 tablet 3 12/06/2023 Active fenofibrate 145 mg oral tablet (20 sources)Peroxisome Proliferator Receptor alpha AgonistStart: 36-49-6758768 mg, Oral, DAILY, First dose on Tue09/15/24 at 1100, Until Discontinued, Substituted for Fenofibrate (Non-Formulary Dose).Start: 71-83-9883324 mg, Oral, Nightly, First dose (after last modification) on Tue07/24/24 at 2100, Until Discontinued, Substituted for Fenofibrate (Non-Formulary Dose).Start: 08-23-2023 End: 92-56-2043alrk 1 tablet by mouth once dailyfenofibrate (TRICOR) 145 MG tablet Take 1 tablet by mouth daily 90 tablet 3 05/23/2025 ActiveStart: 95-78-5865esrbfweyhrz (TRIGLIDE) tablet 160 mgStart: 02-23-2019 End: 17-97-611612 mg, Oral, DAILY, First dose on Tue05/30/25 at 2100, Until Discontinued, Substituted for Fenofibrate (Non-Formulary Dose).fexofenadine hydrochloride 180 mg oral tablet (20 sources)Histamine-1 Receptor AntagonistStart: 04-30-2025 End: 07-76-0757wtxy 1 tablet by mouth once daily in the morningfexofenadine (JODIE) 180 MG tablet Take 1 tablet by mouth every morning 04/30/2025 Active take 30 mg by mouth once dailyFEXOFENADINE HCL PO Take 30 mg by mouth daily Activefluocinonide 0.5 mg/ml topical cream (1 source)CorticosteroidStart: 60-10-9653ejadogyrvihf (LIDEX) 0.05 % cream Indications: Rhus dermatitis Apply topically 2 times daily. 1 Tube 0 03/12/2020 ActiveFLUoxetine 40 mg oral capsule (18 sources)Serotonin Reuptake InhibitorStart: 64-92-7992tlyt 1 capsule by mouth once dailyFLUoxetine (PROZAC) 40 MG capsule Take 1 capsule by mouth daily 90 capsule 1 10/31/2019 ActiveStart: 60-43-3009fzbt 1 capsule by mouth once daily FLUoxetine (PROZAC) 40 MG capsule take 1 capsule by mouth once daily 90 capsule 1 04/23/2019 Activefluticasone propionate 0.05 mg/actuat metered dose nasal spray (20 sources)CorticosteroidStart: 80-82-6779Dkfdc: 14-41-8541szyh 2 spray(s) nasal route once dailyfluticasone (FLONASE) 50 MCG/ACT nasal spray Indications: Seasonal allergic rhinitis due to pollen Use 2 spray(s) in each nostril once daily 16 g 5 09/28/2024 ActiveStart: 69-68-2910tftc 2 spray(s) nasal route once daily as needed2 spray, Each Nostril, NIGHTLY PRN, Starting on e 07/24/24 at 1145, Until Discontinued, RhinitisStart: 00-82-9518mgyr 2 spray(s) nasal route once dailyfluticasone (FLONASE) 50 MCG/ACT nasal spray Indications: Seasonal allergic rhinitis due to pollen instill 2 sprays into each nostril once daily 48 g 3 09/23/2023 ActiveStart: 39-28-6338xewx 2 spray(s) nasal route once daily2 spray, Each Nostril, DAILY, First dose on 06/11/23 at 0900, Until DiscontinuedStart: 06-84-8192Yhtgxtyerto Propionate 50 mcg/actuation spray,suspension Active 2 SPRAY INTRANASAL Daily September 21, 2022 1:00am Complies with drug therapyStart: 13-14-5825arnt 2 spray(s) nasal route once dailyfluticasone (FLONASE) 50 MCG/ACT nasal spray Indications: Seasonal allergic rhinitis due to pollen 2 sprays by Each Nostril route daily 3 each 1 06/09/2022 ActiveStart: 29-42-7902trdy 2 spray(s) nasal route once dailyfluticasone (FLONASE) 50 MCG/ACT nasal spray Indications: Seasonal allergic rhinitis due to pollen 2 sprays by Each Nostril route daily 3 Bottle 1 06/24/2020 ActiveStart: 57-05-4980kiti 2 spray(s) nasal route once dailyfluticasone (FLONASE) 50 MCG/ACT nasal spray Indications: Ear fullness, bilateral 2 sprays by Each Nostril route daily 3 Bottle 1 07/26/2019 ActiveFluticasone Propionate 50 MCG/ACT Nasal for 30 Days ActiveFluticasone Propion-Salmeterol (20 sources)Corticosteroid, beta2-Adrenergic AgonistStart: 37-28-2201Qsbitlojwou Propion-Salmeterol (Advair Diskus) 100-50 mcg/dose blister with device Active 1 INH INHALATION Twice daily June 24, 2025 12:00am Complies with drug therapyStart: 20-56-7837qtao 1 puff(s) by inhalation at bedtimefluticasone- salmeterol (ADVAIR) 500-50 MCG/ACT AEPB diskus inhaler Inhale 1 puff into the lungs in the morning and at bedtime 04/30/2025 Active End: 48-46-0617tyqj 1 puff(s) by inhalation in the morningfluticasone-salmeterol [...] 20 mg oral tablet (20 sources)Loop DiureticStart: 04-57-4289mnun 1 tablet by mouth once daily furosemide (LASIX) 20 MG tablet Indications: History of syncope , Essential hypertension , Tobacco abuse , Mixed hyperlipidemia , SOB (shortness of breath) , Bilateral leg edema Take 1 tablet by mouth daily 90 tablet 3 05/28/2025 Active Start: 06-04-2024 End: 40-00-2770ncjn 1 tablet by mouth once dailyfurosemide (LASIX) 20 MG tablet Indications: History of syncope , Essential hypertension , Tobacco abuse , Mixed hyperlipidemia , SOB (shortness of breath) , Bilateral leg edema Take 1 tablet by mouth daily 90 tablet 3 05/23/2025 ActiveStart: 05-16-2023 End: 95-11-5030gjdi 1 tablet by mouth once dailyfurosemide (LASIX) 20 MG tablet Indications: History of syncope , Essential hypertension , Tobacco abuse , Mixed hyperlipidemia Take 1 tablet by mouth daily 90 tablet 3 05/16/2023 05/15/2024 ActiveStart: 09-21-2022 End: 93-17-8880Duxdmklkld 20 mg tablet Discontinued 20 MG PO Q48H September 21, 2022 1:00am June 24, 2025 12:19pmStart: 76-63-0509alat 1 tablet by mouth once dailyfurosemide (LASIX) 20 MG tablet Indications: Lower leg edema take 1 tablet by mouth once daily 90 tablet 1 09/20/2022 ActiveStart: 96-69-6304swiv 1 tablet by mouth once dailyfurosemide (LASIX) 20 MG tablet Indications: Lower leg edema Take 1 tablet by mouth daily 90 tablet1 03/24/2022 ActiveglipiZIDE er 10 mg 24 hr extended release oral tablet (20 sources)SulfonylureaStart: 90-23-8939kqjx 2 tablets by mouth once daily glipiZIDE (GLUCOTROL XL) 10 MG extended release tablet Indications: Diabetes mellitus type 2 with complications, uncontrolled (HCC) Take 2 tablets by mouth daily 180 tablet 1 12/31/2019 ActiveStart: 17-47-7793list 2 tablets by mouth once dailyglipiZIDE (GLUCOTROL XL) 10 MG extended release tablet Indications: Diabetes mellitus type 2 with complications, uncontrolled (HCC) Take 2 tablets by mouth daily 180 tablet 0 09/10/2019 ActiveStart: 72-92-9478nxhm 2 tablets by mouth once dailyglipiZIDE (GLUCOTROL [...] for injection by adding 1 mL of manager new product-supplied sterile diluent or sterile water for injection to a vial containing 1 mg of the drug, to provide solutions containing 1 mg/mL. Shake vial gently to dissolve. Start: 84-42-9916Whsvl: 31-29-6353ypiv 1 mL intravenously every hour1 mg, IntraMUSCular, PRN, Starting on 06/11/23 at 1616, Until Discontinued, Low blood sugar, Blood glucose less than 70 mg/dL and patient NOT ALERT or NPO and does not have IV access. After administration, attempt intravenous access and start D5W at 100 mL/hr. Repeat blood glucose in 15 minutes x2 and notify provider.Start: 46-74-6777cgwzgf 1 mg by subcutaneous injection every hour [...] x 2 and notify provider.Glucose (12 sources)Start: 55-91-8659GskumSEMqxj, at 100 mL/hr, CONTINUOUS PRN, if blood [...] after 60 minutes, discontinue dextrose 10% infusion.Start: 63-98-5375lvnlvmgu bolus 10% 125 mLStart: 24-84-399687 g (4 tablet), Oral, PRN, Starting on [...] remains LESS THAN 70 mg/dL, notify provider.Start: 65-85-3500Bqikr: 97-71-6889pyomunbq bolus 10% 125 mLStart: 05-91-2038Gjksw: 59-01-4735qtrsrnpa bolus 10% 125 mL Start: 01-45-170650 g (4 tablet), Oral, PRN, Starting on [...] glucose remains LESS THAN 70 mg/dL,notify provider.Start: 49-19-9109yuoq 1 mL intravenously every hourIntraVENous, at 100 [...] after 60 minutes, discontinue dextrose 10% infusion.Start: 85-41-3534sqtxdgpi bolus 10% 125 mLStart: 61-31-890371 g (4 tablet), Oral, PRN, Starting on [...] release oral tablet (3 sources)Start: 06-11-2023 End: 36-87-5120uaot 1 tablet by mouth twice dailyguaiFENesin (MUCINEX) 600 MG extended release tablet Take 1 tablet by mouth 2 times daily for 7 days 14 tablet 0 06/14/2023 06/21/2023 ActiveHomeopathic Products (PROSACEA EX) (17 sources)Homeopathic Products (PROSACEA EX) Apply topically 0 Active hydrocortisone 10 mg/ml / neomycin 3.5 mg/ml / polymyxin b 69144 unt/ml otic solution (3 sources)Aminoglycoside Antibacterial, Polymyxin-class Antibacterial, CorticosteroidStart: 11-28-2024 End: 81-97-2506hsdsadwg-polymyxin-hydrocortisone (CORTISPORIN) 3.5-61192-[address] 4 drops into the left ear 3 times daily for 10 days 10 mL 11/28/2024 12/08/2024 ActivelevoFLOXacin 750 mg oral tablet (2 sources)Quinolone AntimicrobialStart: 06-14-2023 End: 86-04-2861psez 1 tablet by mouth once dailylevoFLOXacin (LEVAQUIN) 750 MG tablet Take 1 tablet by mouth daily for 7 days 7 tablet 0 / Activeloratadine 10 mg oral capsule (18 sources)take 1 capsule by mouth once dailyloratadine (CLARITIN) 10 MG capsule Take 10 mg by mouth daily 0 Pnmrlo93 ml magnesium sulfate 40 mg/ml injection (2 [...] mg oral tablet (2 sources)AntiemeticStart: 07-13-2019 End: 83-54-1094cyif 1 tablet by mouth three times daily as needed for dizziness meclizine (ANTIVERT) 25 MG tablet Indications: Vertigo Take 1 tablet by mouth 3 times daily as needed for Dizziness 30 tablet 0 07/13/2019 07/23/2019 Active methocarbamol 500 mg oral tablet (20 sources)Muscle RelaxantStart: 05-30-2025 End: 53-31-9654kdfd 1 tablet by mouth three times dailymethocarbamol (ROBAXIN) 500 MG tablet Take 1 tablet by mouth 3 times daily 90 tablet 3 05/31/2025 Active Start: 65-59-7853txym 500 mg by mouth four times ijlsk673 mg, Oral, 4 TIMES DAILY, First dose on 09/15/24 at 1300, Until DiscontinuedmethylPREDNISolone 4 mg oral tablet (3 sources)CorticosteroidStart: 51-43-7301igswcxPNMQFEAeselk (MEDROL DOSEPACK) 4 MG tablet TAKE BY MOUTH DIRECTED ON INSIDE OF PACKAGE 06/21/2024 Active Start: 71-21-4790vzsfuuIYSWNZGmriqg sodium succ (SOLU-MEDROL) injection 40 mg24 hr metoprolol succinate 25 mg extended release oral tablet (20 sources)beta-Adrenergic BlockerStart: 94-21-9581Noirtvovmb Succinate 25 mg tablet extended release 24 hr Active 50 MG PO Twice daily June 24, 2025 12:18pm Complies with drug therapyStart: 63-09-7265dmxl 1 tablet by mouth once daily before breakfastmetoprolol succinate (TOPROL XL) 50 MG extended release tablet Indications: History of syncope , Essential hypertension , Tobacco abuse , Mixed hyperlipidemia , SOB (shortness of breath) , Bilateral leg edema Take 1 tablet by mouth every morning (before breakfast) 90 tablet 3 11/13/2024 Active Start: 59-76-1771Afiyk: 46-31-2507eazs 1 tablet by mouth in the evening metoprolol succinate (TOPROL XL) 25 MG extended release tablet Take 1 tablet by mouth in the evening 90 tablet 3 07/31/2024 ActiveStart: 99-43-5238thjq 75 mg by mouth once daily75 mg, Oral, DAILY, First dose on Tue07/24/24 at 0900, Until Discontinued, Do not crush or chew.Start: 54-81-5693cbru 1 tablet by mouth once dailymetoprolol succinate (TOPROL XL) 50 MG extended release tablet Indications: History of syncope , Essential hypertension , Tobacco abuse , Mixed hyperlipidemia , SOB (shortness of breath) , Bilateral leg edema Take 1 tablet by mouth daily 90 tablet 3 07/05/2024 ActiveStart: 56-16-2800eyjj 1 tablet by mouth once daily, then take 1 tablet by mouth once daily in the evening metoprolol succinate (TOPROL XL) 25 MG extended release tablet Take 1 tablet by mouth daily Take 1 tablet every evening. 90 tablet 3 08/04/2023 ActiveStart: 07-75-6975atsv 1 tablet by mouth once daily in the morningmetoprolol succinate (TOPROL XL) 50 MG extended release tablet Take 1 tablet by mouth daily Take 50mg in the morning 90 tablet 3 08/04/2023 ActiveStart: 02-23-2019 End: 35-22-1766yfbr 1 tablet by mouth at bedtimemetoprolol succinate [...] mg oral tablet (20 sources)Leukotriene Receptor AntagonistStart: 99-46-2193kjae 1 tablet by mouth at bedtimemontelukast (SINGULAIR) [...] other day 0 ActiveNaloxone (20 sources)Opioid AntagonistStart: 23-81-6509Usshmfoy HCl (NARCAN IJ) by Nasal route 07/04/2024 ActiveStart: 43-99-1305lpghsddn 4 MG/0.1ML LIQD nasal spray 07/04/2024 Activenaloxone 0.4 mg in 10 mL sodium chloride syringe (1 source)Start: 09-91-4681VcumiHAZyjy, PRN, Opioid Reversal, Starting on Tue07/23/25 at [...] mg/hr transdermal system (17 sources)Cholinergic Nicotinic AgonistStart: 02-86-5049sjlaj 1 dose transdermal route once daily at [...] to facility policy for handling and disposal.Start: 66-88-5969ewlailjm (NICOTROL) 10 MG inhaler Indications: Cigarette nicotine dependence without complication Inhale 1 puff into the lungs as needed for Smoking cessation 1 Inhaler 3 01/23/2020 Active NONFORMULARY (20 sources)NONFORMULARY Medical Marijuana Card 0 Activenystatin 714865 unt/ml oral suspension (1 source)Polyene AntifungalStart: 09-23-2022 End: 94-15-9845dezw 5 mL by mouth four times dailynystatin (MYCOSTATIN) 815734 UNIT/ML suspension Indications: Oral candidiasis Take 5 mLs by mouth 4times daily for 10 days 200 mL 0 09/23/2022 10/03/2022 Activeomeprazole 20 mg delayed release oral capsule (20 sources)Proton Pump InhibitorStart: 05-17-2024 End: 52-35-6477hakj 1 capsule by mouth once dailyomeprazole (PRILOSEC) 20 MG delayed release capsule Indications: Gastroesophageal reflux disease without esophagitis Take 1 capsule by mouth Daily 90 capsule 3 06/13/2024 05/31/2025 Discontinued (Stop Taking at Discharge)ondansetron (ZOFRAN-ODT) disintegrating tablet 4 mg (4 sources)Start: 78-24-6367obvekhwqwxy (ZOFRAN-ODT) disintegrating tablet 4 mg Start: 12-77-8655salvcbkkgdp (ZOFRAN-ODT) disintegrating tablet 4 mgStart: 08-99-1596yzxkkidqbvv (ZOFRAN-ODT) disintegrating tablet 4 mgStart: 06-11-2023 ondansetron (ZOFRAN-ODT) disintegrating tablet 4 mgoxyCODONE (2 sources)Opioid AgonistStart: 07-23-2025 End: 39-02-4912qniXMHVJK (ROXICODONE) immediate release tablet 5 mgStart: 07-14-2024 End: 52-79-0894brlr 1 dose by mouth once5 mg, Oral, ONCE, 1 dose, On 07/14/24 at 0030pioglitazone 30 mg oral tablet (20 sources)Peroxisome Proliferator Receptor alpha Agonist, Peroxisome Proliferator Receptor gamma Agonist, ThiazolidinedioneStart: 87-28-2171azhe 30 mg by mouth once daily30 mg, Oral, DAILY, First dose on 09/15/24 at 1100, Until DiscontinuedStart: 66-00-7162qnsr 1 tablet by mouth once dailypioglitazone (ACTOS) 30 MG tablet Take 1 tablet by mouth daily 06/12/2024 Activepolyethylene glycol 3350 07532 mg powder for oral solution (4 sources)Osmotic LaxativeStart: 59-18-7589Bxnxx: g, Oral, DAILY PRN, Starting on 09/14/24 at 1124, Until Discontinued, Constipation, First line therapy for constipationStart: g, Oral, DAILY PRN, Starting on 07/23/24 at 1845, Until Discontinued, Constipation, First line therapy for constipationStart: g, Oral, DAILY PRN, Starting on 06/11/23 at 0043, Until Discontinued, Constipation First linetherapy for constipation Potassium Chloride (1 source)Start: 03-06-4592zxxfygjwx chloride (KLOR-CON M) extended release tablet 40 mEqpovidone-iodine 100 mg/ml topical spray (1 source)AntisepticStart: 47-77-8928Jiyvftz, PRN, Wound Care, Please send to patient room STAT, Starting on Tue07/23/24 at 1848, For 1dose, 1 Large bottle to bedside for Podiatry resident. Please bring to room for dressing changes Morgan nk you Either from supply room or pharmacy. Wherever it is most readily availablepredniSONE 10 mg oral tablet (2 sources)Start: 29-56-9003uwdkrrRGJF (DELTASONE) 10 MG tablet 4 tabs daily for 3 days, 3 tabs daily for 3 days, 2 tabs daily for 3 days, 1 tab daily for 3 days 30 tablet 0 06/14/2023 Activepregabalin 150 mg oral capsule (20 sources)Start: 65-26-3419iyhh 150 mg by mouth three times hqjib809 mg, Oral, 3 times daily, First dose (after last modification) on Tue05/31/25 at 0900, Until DiscontinuedStart: 05-30-2025 End: 34-78-8644fiiy 75 mg by mouth three times daily75 mg, Oral, 3 times daily, First dose on Olena 05/30/25 at 0900, Until DiscontinuedStart: 67-99-2210lxrb 1 capsule by mouth at bedtimepregabalin (LYRICA) 150 MG capsule Take 1 capsule by mouth in the morning, at noon, and at bedtime.05/15/2025 ActiveStart: 09-15-2024 take 25 mg by mouth once daily25 mg, Oral, DAILY, First dose on Tue09/15/24 at 1100, Until DiscontinuedStart: 67-06-5658hchk 1 capsule by mouth three times dailypregabalin (LYRICA) 50 MG capsule Take 1 capsule by mouth 3 times daily. 09/07/2024 ActiveStart: 06-30-2024 End: 12-73-8997wmphwdnfsp (LYRICA) 25 MG capsule 06/30/2024 ActiveStart: 10-97-4840emxr 25 mg by mouth three times daily25 mg, Oral, 3 TIMES DAILY, First dose (after last modification) on Tue07/24/24 at 1400, Until Biqdxkbegtog36 ml sodium chloride 9 mg/ml injection (20 sources)Start: 56-22-5694WeqycGEVvem, at 5-250 mL/hr, PRN, if patient receiving [...] dose on Tue05/30/25 at 0900, Until DiscontinuedStart: 00-90-7927Riqsy: 05-30-2025 End: 11-51-7220KxgytUEVtvu, at 150 mL/hr, CONTINUOUS, Starting on Tue05/30/25 at 0515, For 24 hours, Complete last bag that is running at 24 hours and then saline lock IVStart: 67-81-4350Rbaee: 09-14-2024 End: 53-07-0599Hwwed: 76-26-3030EdnwjEWTbsx, at 5-250 mL/hr, PRN, if patient receiving [...] Central Line = 20 mL/lumenStart: 07-23-2024 End: 75-00-6505VszzaQMLrfz, at 75 mL/hr, CONTINUOUS, Starting on Tue07/23/24 at 1915, For 24 hours, Complete lastbag that is running at 24 hours and then saline lock IVStart: 13-99-5697UxnwiYKHvtj, at 5-250 mL/hr, PRN, if patient receiving [...] Midline or Central Line = 20 mL/lumenStart: 56-15-7134jcbp 1 dose intravenously twice daily5-40 mL, IntraVENous, [...] Central Line = 20 mL/lumenStart: 06-11-2023 End: 14-13-1704HspzxETLyvx, at 75 mL/hr, CONTINUOUS, Starting on 06/11/23 at 0100Start: 12-77-7620hzok 5-40 mL intravenously once as needed5-40 mL, [...] Central Line = 20 mL/lumenStart: 06-10-2023 End: 86-43-2743usfxnn chloride 0.9 % bolus 1,000 mLtiZANidine 4 mg oral tablet (20 sources)Central alpha-2 Adrenergic AgonistStart: 41-46-9371ecOSXoprye (ZANAFLEX) 4 MG tablet Take 1 tablet by mouth 0 03/13/2024 ActiveStart: 80-88-8000coOXMeqskk (ZANAFLEX) 4 MG tablet 4 mg nightly 0 02/21/2019 Active traMADol hydrochloride 50 mg oral tablet (20 sources)Opioid AgonistStart: 67-78-1213pwkh 1 tablet by mouth every twelve hours as needed for pain and pain, then take 2 tablets by mouthevery six hours as needed for pain and painTramadol 50 mg tablet Active 100 MG PO Q12H as needed for Pain June 24, 2025 12:21pm Take 1 or 2 tabs p.o. every 6 hours as needed for pain Complies with drug therapyStart: 14-09-6082yomh 100 mg by mouth twice kuabi259 mg, Oral, 2 times daily, First dose on Olena 05/30/25 at 1115, Until DiscontinuedStart: 11-19-2024 End: 41-56-4198qlwm 1 tablet by mouth every four hours [...] 300 mg 120 tablet 11/19/2024 12/19/2024 ActiveStart: 73-73-7851taab 100 mg by mouth twice aqqlp831 mg, Oral, 2 times daily, First dose on 09/15/24 at 1145, Until Discontinued Start: 07-23-2024 End: 51-87-5064pnoo 100 mg by mouth twice blgaj188 mg, Oral, 2 TIMES DAILY, First dose on 07/23/24 at 2330, Until DiscontinuedStart: 06-11-2023 End: 12-15-6967nctCYSin (ULTRAM) tablet 50 mgStart: 10-04-2022 End: 72-04-4534ffhn 1 tablet by mouth every six hours [...] 120 tablet 01/21/2025 02/20/2025 ActiveStart: 09-21-2022 End: 46-97-5406tzhq 1 tablet by mouth twice dailyTramadol 100 mg Tablet Extended Release 24 Hr Discontinued 100 MG PO Twice daily September 21, 2022 1:00am June 24, 2025 12:21pmStart: 09-20-2022 End: 88-04-8537bjpd 2 tablets by mouth at bedtimetraMADol (ULTRAM) [...] 200 mg 120 tablet 09/17/2024 10/17/2024 ActiveStart: 87-69-4262owgIBErz (ULTRAM) 50 MG tablet Take 1 to [...] acetonide 0.25 mg/ml topical cream (20 sources)CorticosteroidStart: 28-41-4631bifryrjkgfmkp (KENALOG) 0.025 % cream Indications: Eczema of external ear, bilateral Apply topically 2 times daily. 15 g 04/25/2025 Active Completed/Discontinued Medications MedicationDrug Class(es)DatesSig (Normalized)Sig (Original)azithromycin (ZITHROMAX) 500 mg in 250 mL addavial (1 source)Start: 06-10-2023 End: 85-53-2620kmfnhrwbldtx (ZITHROMAX) 500 mg in 250 mL addavialbaclofen 10 mg oral tablet (20 sources)gamma-Aminobutyric Acid-ergic AgonistStart: 06-18-2021 End: 74-80-1801vlsn 1 tablet by mouth once daily at bedtimeBaclofen 10 mg tablet Discontinued 10 MG PO Daily at bedtime September 21, 2022 1:00am June 242024 12:17pm On Hold: Resume on 10/11/22. While on cyclobenzaprineStart: 77-49-4442maxg 1 tablet by mouth three times dailybaclofen (LIORESAL) 10 MG tablet Take 1 tablet by mouth 3 times daily 0 06/18/2021 ActiveStart: 06-18-2021 End: 34-35-4437oelublms (LIORESAL) 10 MG tablet 2 times daily 0 06/18/2021 ActiveStart: 08-79-4279ujpo 1 tablet by mouth three times dailybaclofen (LIORESAL) 10 MG tablet Indications: TMJ tenderness, left Take 1 tablet by mouth 3 times daily 90 tablet 1 09/10/2019 Activebenzonatate 100 mg oral capsule (1 source)Non-narcotic AntitussiveStart: 18-67-1918leem 100 mg by mouth three times daily as davyvy311 mg, Oral, 3 TIMES DAILY PRN, Starting on 06/11/23 at 0043, Until Discontinued, Cough60 actuat budesonide 0.16 mg/actuat / formoterol fumarate 0.0045 mg/actuat metered dose inhaler (1 source)Corticosteroid, beta2-Adrenergic AgonistStart: puff, Inhalation, 2 TIMES DAILY RESP, First dose on Olena 05/30/25 at 0800, Until Discontinued, Substituted for fluticasone-salmeterol (ADVAIR DISKUS or WIXELA INHUB).chlorhexidine gluconate 1.2 mg/ml mouthwash (3 sources)Start: 07-05-2024 End: 24-20-9321ukpw 15 mL by mouth twice dailychlorhexidine (PERIDEX) 0.12 % solution Indications: Oral aphthous ulcer Swish and spit 15 mLs 2 times daily for 14 days 420 mL 07/05/2024 07/19/2024 Expiredciprofloxacin 500 mg oral tablet (2 sources)Quinolone AntimicrobialStart: 08-21-2024 End: 77-28-7962taps 1 tablet by mouth twice dailyciprofloxacin (CIPRO) 500 MG tablet Take 1 tablet by mouth 2 times daily 28 tablet 08/21/2024 09/07/2024 Discontinued (Therapy completed)cyclobenzaprine hydrochloride 10 mg oral tablet (3 sources)Muscle RelaxantStart: 10-04-2022 End: 20-50-3128cfub 1 tablet by mouth three times daily as needed for muscle spasmsCyclobenzaprine 10 mg tablet Discontinued 10 MG PO Three times daily as needed for back spasms October 04, 2022 1:00am June 24, 2025 12:17pm Start: 08-06-2022 End: 12-21-2053rsak 1 tablet by mouth once daily as needed for muscle spasms cyclobenzaprine (FLEXERIL) 10 MG tablet Take 1 tablet by mouth nightly as needed for Muscle spasms 10 tablet 0 08/06/2022 08/16/2022 Activedextromethorphan hydrobromide 2 mg/ml / guaiFENesin 20 mg/ml oral suspension (1 source)Uncompetitive Q-igxmsu-X-aspartate Receptor Antagonist, Sigma-1 AgonistStart: 70-73-3464tgbz 5 mL by mouth every four hours as needed5 mL, Oral, EVERY 4 HOURS PRN, Starting on 06/11/23 at 0043, Until Discontinued, Cough dimenhyDRINATE 50 mg oral tablet (1 source)Start: 07-23-2025 End: 18-72-8613mjae 1 dose by mouth once daily50 mg, Oral, ONCE, 1 dose, On Tue07/23/25 at 0700, Pre-op (day of surgery)Start: 07-23-2025 End: 90-03-0695tcbu 1 dose by mouth once daily50 mg, Oral, ONCE, 1 dose, On Tue07/23/25 at 0700, Pre-op (day of surgery)0.4 ml enoxaparin sodium 100 mg/ml prefilled syringe (3 sources)Low Molecular Weight HeparinStart: 81-46-3501asnaqq 40 mg by subcutaneous injection once daily40 mg, SubCUTAneous, DAILY, First dose on Tue09/14/24 at 1400, Until Discontinued, Indication of Use: Prophylaxis-DVT/PE, Administer by deep subCUTAneous injection with pt lying down. Alternate injec tion sites on abdominal wall. Do not rub site after injection. Check with provider prior to any invasive procedure.Start: 94-26-5239hcoghm 40 mg by subcutaneous injection once daily40 mg, SubCUTAneous, DAILY, First dose on Tue07/24/24 at 0900, Until Discontinued, Indication of Use: Prophylaxis-DVT/PE, Administer by deep subCUTAneous injection with pt lying down. Alternate injec tion sites on abdominal wall. Do not rub site after injection. Check with provider prior to any invasive procedure.Start: 43-33-3173jixyur 40 mg by subcutaneous injection once daily40 mg, SubCUTAneous, DAILY, First dose on Tue06/11/23 at 0900, Until Discontinued Indication of Use: Prophylaxis-DVT/PE ergocalciferol 1.25 mg oral capsule (1 source)Provitamin D2 CompoundStart: 64-26-2451wvqi 95642 [IU] by mouth every week50,000 Units, Oral, WEEKLY, First dose on Tue07/25/24 at 0930, Until Discontinuedfamotidine 20 mg oral tablet (1 source)Histamine-2 Receptor AntagonistStart: 47-41-2325zxed 20 mg by mouth twice daily20 mg, Oral, 2 TIMES DAILY, First dose on Tue06/11/23 at 0100, Until Discontinuedgabapentin 300 mg oral capsule (20 sources)Anti-epileptic AgentStart: 09-14-2024 End: 19-86-5325274 mg, Oral, ONCE, 1 dose, On Tue09/14/24 at 0630, Administer 60 minutes prior to surgery., Pre-op (day of surgery)Start: 07-23-2024 End: 12-76-7457692 mg, Oral, ONCE, 1 dose, On Tue07/23/24 at 1245, Administer 60 minutes prior to surgery., Pre-op (day of surgery)Start: 65-21-3322diqgjqzztu (NEURONTIN) capsule 600 mgStart: 02-21-2019 End: 86-72-9903irus 1 tablet by mouth three times dailyGabapentin [...] mg oral tablet (1 source)Nonsteroidal Anti-inflammatory DrugStart: 36-94-8196qxbh 400 mg by mouth three times daily at fuwukgrh702 mg, Oral, 3 TIMES DAILY WITH MEALS, First dose on 06/11/23 at 0800, Until Discontinued Do not crush or break. Substituted for Diclofenac (VOLTAREN).insulin glargine 100 unt/ml injectable solution (20 sources)Insulin AnalogStart: 09-14-2024 End: 86-24-8833dyhtoo 15 [IU] by subcutaneous injection twice daily15 Units, SubCUTAneous, 2 TIMES DAILY, First dose on Tue09/14/24 at 2100, Until DiscontinuedStart: 58-47-7033bkdyrpl glargine (LANTUS SOLOSTAR) 100 UNIT/ML injection pen [...] 60 minutes of last blood glucose checkStart: 79-88-1813EVIGAOY KWIKPEN 200 UNIT/ML SOPN pen 11/08/2024 ActiveStart: [...] 60 minutes of last blood glucose checkStart: 90-78-8124xptwmc 60 [IU] by subcutaneous injection three times daily at dpuifzla41 Units, SubCUTAneous, 3 TIMES DAILY WITH MEALS, [...] last blood glucose check Start: 06-11-2023 End: 21-67-5900abycqc 15 [IU] by subcutaneous injection three times daily at Units, SubCUTAneous, 3 TIMES DAILY WITH MEALS, First dose on 06/11/23 at 1700, Until Discontinued Substituted for Insulin lispro U-200 (HumaLOG KwikPen).Start: 74-51-3944Iizcbxw Lispro (Humalog Kwikpen Insulin) 200 unit/mL (3 mL) insulin pen Active sliding scale dose SUBCUT As Directed September 21, 2022 1:00am Complies with drug therapyStart: 89-48-3660TUWAQZY KWIKPEN 200 UNIT/ML SOPN pen Indications: Diabetes mellitus type 2 with complications, uncontrolled INJECT 15 UNITS INTO THE SKIN 3 TIMES DAILY WITH MEALS 15 mL 5 03/10/2020 ActiveStart: 13-43-9018ytgmnms lispro (HUMALOG KWIKPEN) 200 UNIT/ML SOPN pen Indications: Diabetes mellitus type 2 with complications, uncontrolled (HCC) Inject 15 Units into the skin 3 times daily (with meals) 5 pen 5 01/2019 Active3 ml insulin, regular, human 500 unt/ml pen injector (20 sources)InsulinStart: 72-96-6543233 Units, SubCUTAneous, 2 TIMES DAILY WITH MEALS, First dose on 09/15/24 at 1700, Until Discontinued, This is a highly concentrated insulin. After attaching the pen needle, prime with 5 units to ensure proper dosing.Start: 12-97-9647EEEMZQH R U-500 KWIKPEN 500 UNIT/ML SOPN concentrated injection pen 09/02/2024 ActiveStart: 57-24-1461hxxqnc 500 [IU] by subcutaneous injection once dailyHUMULIN R U-500 KWIKPEN 500 UNIT/ML SOPN concentrated injection pen INJECT UP TO 500 UNITS SUBCUTANEOUSLY PER DAY. 09/02/2024 ActiveStart: 48-90-5923lkjxyz 100 [IU] by subcutaneous injection twice daily at tovymyaa086 Units, SubCUTAneous, 2 TIMES DAILY WITH MEALS, First dose on Tue06/11/23 at 1700, Until Discontinued This is highly concentrated insulin. Patient may use home supply.Start: 95-34-7682Ugnqoin Regular Hum U-500 Conc (Humulin R U-500 [...] Iopamidol (2 sources)Radiographic Contrast AgentStart: 07-30-2019 End: 64-90-8453rvyprirmd (ISOVUE-370) 76 % injection 18 mLStart: 07-30-2019 End: 28-65-0673mufoszfgc (ISOVUE-370) 76 % injection 75 mLiopamidol (ISOVUE-370) 76 % injection 75 mL (2 sources)Start: 06-14-2025 End: 95-09-1319uiaa 1 dose intravenously once75 mL, IntraVENous, IMG ONCE PRN, 1 dose, Starting on Tue06/14/25 at 1646, Until Tue06/14/25 at 1744, OtherStart: 06-10-2023 End: 96-01-7857nijmzdprz (ISOVUE-370) 76 % injection 75 mL1 ml ketorolac tromethamine 30 mg/ml cartridge (1 source)Nonsteroidal Anti-inflammatory Drug, Cyclooxygenase InhibitorStart: 07-13-2024 End: 60-85-243859 mg, IntraMUSCular, ONCE, 1 dose, On Tue07/13/24 at 2015, Do not administer for more than 5 days.levocetirizine dihydrochloride 5 mg oral tablet (20 sources)Histamine-1 Receptor AntagonistStart: 09-28-2024 End: 01-33-4476wpih 1 tablet by mouth in the eveninglevocetirizine (XYZAL) 5 MG tablet Indications: Seasonal allergic rhinitis due to pollen Take 1 tablet by mouth in the evening 31 tablet 5 09/28/2024 05/14/2025 Discontinued (LIST CLEANUP)Start: 41-30-0425zpvd 1 tablet by mouth once daily in the evening levocetirizine (XYZAL) 5 MG tablet Indications: Seasonal allergic rhinitis due to pollen take 1 tablet by mouth every evening 90 tablet 3 09/23/2023 Iergrc17 ml lidocaine hydrochloride 10 mg/ml injection (2 sources)Antiarrhythmic, Amide Local AnestheticStart: 01-20-2021 End: 85-92-7436qgqhgvtyj PF 1 % injectionlisinopril 10 mg oral tablet (20 sources)Angiotensin Converting Enzyme InhibitorStart: 45-77-8342sbxj 1 tablet by mouth once dailylisinopril (PRINIVIL;ZESTRIL) 5 MG tablet Indications: History of syncope , Essential hypertension , Tobacco abuse , Mixed hyperlipidemia Take 1 tablet by mouth daily 90 tablet 3 05/28/2025 ActiveStart: 50-98-6592sbyi 1 tablet by mouth once dailylisinopril (PRINIVIL;ZESTRIL) 5 MG tablet Indications: History of syncope , Essential hypertension , Tobacco abuse , Mixed hyperlipidemia Take 1 tablet by mouth daily 90 tablet 3 05/23/2025 ActiveStart: 11-25-2015 End: 82-18-1362nwfc 1 tablet by mouth once dailylisinopril (PRINIVIL;ZESTRIL) 10 MG tablet Indications: History of syncope , Essential hypertension, Tobacco abuse , Mixed hyperlipidemia Take 1 tablet by mouth once daily 90 tablet 3 06/10/2025 07/15/2025 Discontinued (LIST CLEANUP)melatonin 3 mg oral tablet (1 source)Start: 15-18-1495czpi 3 mg by mouth once daily3 mg, Oral, NIGHTLY, First dose on Tue09/14/24 at 2100, Until Discontinued1 ml morphine sulfate 2 mg/ml injection (2 sources)Opioid AgonistStart: 07-23-2024 End: 17-45-9157qbow 2 mg by mouth every four hours [...] each other unless specifically ordered.Start: 08-06-2022 End: 17-19-0927ohelfkwn injection 4 mgnitroglycerin 0.3 mg sublingual tablet (1 source)Nitrate VasodilatorStart: 09-29-2022 End: 96-86-0068mcfhvEQBKJPGX (NITROSTAT) SL tablet 0.3 mgStart: 09-29-2022 End: 92-32-8032rvrcwIRBEVVLF (NITROSTAT) SL tablet 0.3 mg2 ml ondansetron 2 mg/ml injection (1 source)Serotonin-3 Receptor AntagonistStart: mg, IntraVENous, ONCE PRN, 1 dose, Starting on Tue07/23/25 at 0838, Until Discontinued, Nausea, Secondary antiemetic therapy., PACU onlypantoprazole 40 mg delayed release oral tablet (3 sources)Proton Pump InhibitorStart: 26-74-551992 mg, Oral, DAILY BEFORE BREAKFAST, First dose on Tue05/30/25 at 0700, Until Discontinued, Do not crush or break. Substituted for Omeprazole (PRILOSEC).Start: 02-07-1567Ytbjo: 07-24-2024 40 mg, Oral, DAILY BEFORE BREAKFAST, First dose on Tue07/24/24 at 0700, Until Discontinued, Do notcrush or break. Substituted for Omeprazole (PRILOSEC). regadenoson (LEXISCAN) injection 0.4 mg (1 source)Start: 03-03-2021 End: 26-72-7407yxnzbvxwnkm (LEXISCAN) injection 0.4 mgrOPINIRole 1 mg oral tablet (20 sources)Nonergot Dopamine AgonistStart: 58-12-1202zzzn 4 mg by mouth once daily4 mg, Oral, DAILY, First dose on Olena 05/30/25 at 2100, Until Discontinued Start: 13-26-2797kqcr 4 mg by mouth once daily4 mg, Oral, NIGHTLY, First dose on Tue09/14/24 at 2245, Until DiscontinuedStart: 85-98-1351hyjw 4 mg by mouth once daily4 mg, Oral, NIGHTLY, First dose on 07/23/24 at 2330, Until DiscontinuedStart: 52-18-4734miho 1 dose by mouth once4 mg, Oral, ONCE, 1 dose, On 07/14/24 at 0100Start: 81-76-3682vecb 4 mg by mouth once daily4 mg, Oral, NIGHTLY, First dose on 06/11/23 at 0100, Until DiscontinuedStart: 11-03-2015 rOPINIRole (REQUIP) 4 MG tablet TAKE 1 TABLET DAILY 90 tablet 0 11/03/2015 Activesulfamethoxazole 800 mg / trimethoprim 160 mg oral tablet (1 source)Dihydrofolate Reductase Inhibitor Antibacterial, Sulfonamide AntimicrobialStart: 10-04-2022 End: 01-81-9913snfu 1 tablet by mouth every twelve hoursSulfamethoxazole- Trimethoprim (Bactrim Ds) 800-160 mg tablet Discontinued 1 TAB PO Q12H October 04, 2022 1:00am June 24, 2025 12:16pmtechnetium sestamibi (CARDIOLITE) injection 30 millicurie (2 sources)Start: 03-04-2021 End: 10-41-6997awyywdekze sestamibi (CARDIOLITE) injection 30 millicurieStart: 03-03-2021 End: 73-56-5162rjooqptzvv sestamibi (CARDIOLITE) injection 30 millicurie technetium sulfur colloid egg (NYCOMED-SC) solution 1 millicurie (2 sources)Start: 08-22-2019 End: 76-04-9776rbvgwneird sulfur colloid egg (NYCOMED-SC) solution 1 millicurie Start: 08-16-2019 End: 66-37-5367xmlbwqqqcc sulfur colloid egg (NYCOMED-SC) solution 1 millicurie water 1000 mg/ml injectable solution (3 sources)Start: 06-11-2023 End: 73-58-3736iukpyqp water injection Problems Active Problems Problem ClassificationProblemDateDocumented DateEpisodic/ChronicAbdominal pain (20 sources)Generalized abdominal pain; Translations: [Abdominal pain]07-09-2015 EpisodicAcute and unspecified renal failure (17 sources)Acute renal failure syndrome; Translations: [Acute kidney failure, unspecified]Onset: 906119-56-6427UevuckvgGnkdtsraalgtqv/social admission (1 source)Counseling procedure with explicit context; Translations: [Tobacco abuse counseling]EpisodicCalculus of urinary tract (20 sources)Kidney stone; Translations: [Ureteric stone]Onset: 07-03-2013 Resolved: 616582-80-1978YsrvrbeuEwstazyikyas of device; implant or graft (2 sources)Pain due to other internal prosthetic devices, implants and grafts, initial encounter; Translations: [Pain]EpisodicComment on above:Problem List clean-up per request of Phys. EHR CmteConditions associated with dizziness or vertigo (19 sources)Dizziness; Translations: [Dizziness and giddiness]Onset: 05-31-2025 EpisodicDiabetes mellitus with complications (20 sources)Diabetic neuropathy; Translations: [Hyperglycemia due to type 2 diabetes mellitus]Onset: 119236-34-1561JncwkenPirbweio mellitus without complication (20 sources)Type 2 diabetes mellitus; Translations: [Type 2 diabetes mellitus with unspecified complications]Onset: 891229-64-7821HejnrvsZtyeqoupg of lipid metabolism (20 sources)Dyslipidemia; Translations: [Hypertriglyceridemia]Onset: 07-06-2015 17-46-8071PmibanoFrzsihvdd hypertension (20 sources)Essential hypertension; Translations: [Essential (primary) hypertension]Onset: 321610-61-8293PptnqpcEtreeknjsaewk symptoms and ill- defined conditions (20 sources)Carl hematuria; Translations: [Gross hematuria]Onset: 07-19-2013 45-30-1235NtskxihcEpqimhcz; including migraine (1 source)Scalp tenderness; Translations: [Scalp tenderness]EpisodicHeart valve disorders (2 sources)Heart murmur; Translations: [Cardiac murmur, unspecified]Onset: 752457-41-3555FjwpkwtmIgahzwfl disorders (1 source)Other specified disorders involving the immune mechanism, not elsewhere classified; Translations: [OTH SPEC D/O INVOLV IMMUNE MECH NEC]Onset: 21-34-5416HhczwjxFpeqcvp and fatigue (2 sources)Tired; Translations: [Other fatigue]EpisodicMood disorders (20 sources)Depressive disorder; Translations: [Major depressive disorder, single episode, unspecified]Onset: 933319-09-8862RicazjrLdvrxilekkw chest pain (1 source)Chest discomfort; Translations: [Other chest pain]Episodic Osteoarthritis (20 sources)Unspecified osteoarthritis, unspecified site; Translations: [Osteoarthritis of joint of left shoulder region]Onset: 614409-19-5648 ChronicOsteoporosis (2 sources)Osteoporosis; Translations: [Age-related osteoporosis without current pathological fracture]47-12-9287KemlidbOlfqu circulatory disease (14 sources)Orthostatic hypotension; Translations: [Orthostatic hypotension] Onset: 529447-88-7726IbjdfymjKxifz circulatory disease (1 source)Facial sinus finding; Translations: [Other specified symptoms and signs involving the circulatory and respiratory systems]60-53-7636CqfdkrstHfjro circulatory disease (1 source)Other specified symptoms and signs involving the circulatory and respiratory systems; Translations:[Other specified symptoms and signs involving the circulatory and respiratory systems]Onset: 40-19-0490PinockpfSbvjl connective tissue disease (1 source)Pain in left foot; Translations: [Pain in left foot]44-26-4534Zsaojgnm Other diseases of kidney and ureters (1 source)Abnormal renal function; Translations: [Disorder of kidney and ureter, unspecified]66-73-6451SxgbvdklXcjuh diseases of kidney and ureters (1 source)Disorder of kidney and ureter, unspecified; Translations: [Disorder of kidney and ureter, unspecified]Onset: 05-07-6101UiivisagMukyp injuries and conditions due to external causes (1 source)Injury of head; Translations: [Traumatic injury of head, initial encounter]EpisodicOther injuries and conditions due to external causes (18 sources)Acute organ dysfunction due to systemic inflammatory response syndrome; Translations: [SIRS withoutinfection with organ dysfunction]Onset: Other liver diseases (20 sources)Steatosis of liver; Translations: [Fatty (change of) liver, not elsewhere classified]Onset: 284820-67-1415YbqlotbQenlo liver diseases (1 source)Large liver; Translations: [Hepatomegaly, not elsewhere classified] EpisodicOther liver diseases (1 source)Increased creatine kinase level; Translations: [Abnormal levels of other serum enzymes]34-40-9533IbhviuwmJwvoq liver diseases (1 source)Abnormal levels of other serum enzymes; Translations: [Abnormal levels of other serum enzymes]Onset: 78-06-2691IdgbygjnZlclp lower respiratory disease (1 source)Rib pain; Translations: [Pleurodynia]EpisodicOther lower respiratory disease (2 sources)Dyspnea; Translations: [Shortness of breath]07-84-0698AjfaacdfHimce lower respiratory disease (1 source)Shortness of breath; Translations: [Shortness of breath]Onset: 46-41-6282TotimbgcZnsnj nervous system disorders (2 sources)Chronic pain; Translations: [Other chronic pain]ChronicOther nervous system disorders (2 sources)Complex regional pain syndrome of lower limb; Translations: [Complex regional pain syndrome I of left lower limb]ChronicOther nervous system disorders (5 sources)Other chronic pain; Translations: [OTHER CHRONIC PAIN]Onset: 48-91-6055EplsfiaWiwhj nervous system disorders (5 sources)Chronic pain syndrome; Translations: [CHRONIC PAIN SYNDROME]Onset: 37-73-9483AloxkuaUxtwt nervous system disorders (1 source)Other acute postprocedural pain; Translations: [Other acute postprocedural pain]Onset: 20-49-7333AtlmeuekUdizc non-traumatic joint disorders (20 sources)Charcot's arthropathy; Translations: [Charcot's joint, left ankle and foot]Onset: 090856-65-9344SwqvknkDjmpk non-traumatic joint disorders (20 sources)Charcot's joint of foot; Translations: [Charcot's joint, left ankle and foot]Onset: 817245-81-1911XfterqqDrjix non-traumatic joint disorders (4 sources)Charcot's joint, left ankle and foot; Translations: [Charcot's joint, left ankle and foot]Onset: 43-84-3338BmaqjelRekwx non-traumatic joint disorders (2 sources)Pain in right shoulder; Translations: [Pain in joint, shoulder region]Onset: 602660-11-0891JrqnvwzhJebfg nutritional; endocrine; and metabolic disorders (4 sources)Body mass index 30+ - obesity; Translations: [Body mass index (BMI) 33.0-33.9, adult]64-35-9511KpagfunSitrf nutritional; endocrine; and metabolic disorders (14 sources)Body mass index 40+ - severely obese; Translations: [Morbid (severe) obesity due to excess calories]Onset: 825319-10-3213HtbwpxyVjgwn upper respiratory disease (2 sources)Allergic rhinitis; Translations: [Allergic rhinitis, unspecified] 83-46-9309CgaubdlDnxnd upper respiratory disease (1 source)Allergic rhinitis, unspecified; Translations: [Allergic rhinitis, unspecified]Onset: 48-79-0056XvxzybzFvyxu upper respiratory disease (2 sources)Nasal congestion; Translations: [Nasal congestion]66-65-5907Bzxkcjxu Other upper respiratory disease (1 source)Nasal congestion; Translations: [Nasal congestion]Onset: 07-17-2025 EpisodicOther upper respiratory infections (1 source)Recurrent sinusitis; Translations: [Chronic sinusitis, unspecified] 70-38-2849KzktqxuVkwcw upper respiratory infections (2 sources)Pansinusitis; Translations: [Acute recurrent pansinusitis]07-02-2024 EpisodicPeripheral and visceral atherosclerosis (1 source)Intermittent claudication; Translations: [Peripheral vascular disease, unspecified]ChronicResidual codes; unclassified (18 sources)Tobacco user; Translations: [Tobacco abuse]Onset: 12-21-2017 54-88-6480JaoppdrVixyerfb codes; unclassified (16 sources)Obstructive sleep apnea syndrome; Translations: [Obstructive sleep apnea (adult) (pediatric)]Onset: 61-25-0750YvfqrhnEccllikz codes; unclassified (1 source)Edema of lower leg ; Translations: [Localized edema]90-67-0973Oqbgirdr Residual codes; unclassified (2 sources)History of syncope; Translations: [Personal history of other specified conditions]12-68-5823UlaqqsloFtmqghsj codes; unclassified (1 source)Bilateral lower limb edema; Translations: [Localized edema]05-23-2025 EpisodicResidual codes; unclassified (1 source)Personal history of other specified conditions; Translations: [Personal history of other specified conditions]Onset: 41-00-7395Xzqrnszt Residual codes; unclassified (1 source)Localized edema; Translations: [Localized edema]Onset: 05-23-2025 EpisodicSpondylosis; intervertebral disc disorders; other back problems (19 sources)Degeneration of lumbar intervertebral disc; Translations: [Other intervertebral disc degeneration, lumbar region]Onset: 91-98-5541Gelbcmr Substance-related disorders (2 sources)Smoker; Translations: [Nicotine dependence, unspecified, uncomplicated]52-49-0477AgnkioxNqrtfht on above:Problem List clean-up per request of Phys. EHR CmteThyroid disorders (1 source)Goiter; Translations: [Thyromegaly]ChronicUnclassified (1 source)Patient encounter status; Translations: [Preoperative testing] Unclassified (1 source)Pain due to other internal prosthetic devices, implants and grafts, initial encounter; Translations: [Pain due to other internal prosthetic devices, implants and grafts, initial encounter]Onset: 28-18-2206Cxvkssjfonbl (1 source)Encounter for preprocedural laboratory examination; Translations: [Encounter for preprocedural laboratory examination]Onset: 09-30-2022 Unclassified (1 source)M79.10 - Myalgia, unspecified site; Translations: [M79.10 - Myalgia, unspecified site]Onset: 82-78-6070Fedsgwmlkukt (4 sources)LOW BACK PAIN, UNSPECIFIED; Translations: [LOW BACK PAIN, UNSPECIFIED]Onset: 22-84-3502Qfehuzwocmvd (1 source)Facial sinus kqrpecz75-78-7819 Past or Other Problems Problem ClassificationProblemDateDocumented DateEpisodic/ChronicAnal and rectal conditions (20 sources)Perirectal abscess; Translations: [Rectal abscess]Onset: 12-20-2017 76-68-1235TvkyhfmlYexnafqp of lower limb (20 sources)Closed fracture of metatarsal bone of left foot; Translations: [Fracture of unspecified metatarsal bone(s), left foot, initial encounter for closed fracture]Onset: 919330-82-6679YeocrgflDotkc disorders and dislocations; trauma-related (20 sources)Traumatic dislocation of joint of foot; Translations: [Dislocation of tarsometatarsal joint of leftfoot, initial encounter]Onset: 07-17-2024 79-89-6399AriyacxaTjfgi acquired deformities (20 sources)Acquired equinus deformity of foot; Translations: [Other specified acquired deformities of left lower leg]Onset: 213831-78-6889HtmmgfjuNvoeb aftercare (2 sources)group home (current) use of insulin; Translations: [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 (HCC)]Onset: 07-73-5959TorjownpYdocf and unspecified benign neoplasm (20 sources)Benign neoplasm of skin of trunk; Translations: [Melanocytic nevi of trunk]Onset: 743041-87-0798KtlhudviUiehm connective tissue disease (20 sources)Fibromyalgia; Translations: [Fibromyalgia]Onset: 01-31-2013 84-09-0042PewyevbzJllxl connective tissue disease (20 sources)Pain in upper limb; Translations: [Pain in arm, unspecified]Onset: 598614-52-6458MjymmdlhGmeoy connective tissue disease (20 sources)Spasm; Translations: [Other muscle spasm]Onset: EpisodicOther connective tissue disease (20 sources)Muscle pain; Translations: [Myalgia, other site]Onset: 12-08-2023 00-10-4402XrfrqjqpTxuvj connective tissue disease (1 source)Pain in left foot; Translations: [Pain in left foot]Onset: 08-31-2024 EpisodicOther diseases of kidney and ureters (20 sources)Hydronephrosis; Translations: [Unspecified hydronephrosis]Onset: 04-28-2016 Resolved: 368114-65-9332DwjbnqcsRunre injuries and conditions due to external causes (20 sources)Acute organ dysfunction due to systemic inflammatory response syndrome; Translations: [Systemic inflammatory response syndrome (SIRS) of non- infectious origin with acute organ dysfunction]Onset: EpisodicOther nervous system disorders (20 sources)Postoperative pain ; Translations: [Other acute postprocedural pain] Onset: 07-23-2024 Resolved: 956197-47-2713HfxssmrgIxtii non-traumatic joint disorders (20 sources)Multiple joint pain; Translations: [Pain in unspecified joint]Onset: 794197-90-1930JccpmlptXlhvq non-traumatic joint disorders (20 sources)Pain in left shoulder; Translations: [Pain in joint, shoulder region]Onset: 023820-58-6219CglghwozAfadf screening for suspected conditions (not mental disorders or infectious disease) (20 sources)Liver function tests abnormal; Translations: [Abnormal results of liver function studies]Onset: 54-53-4586FklpcvetKwtzopjtkp disorders (not diabetes) (20 sources)Idiopathic acute pancreatitis; Translations: [Idiopathic acute pancreatitis without necrosis or infection]Onset: 245140-40-5182Dxvgaump Pneumonia (except that caused by tuberculosis or sexually transmitted disease) (20 sources)Infective pneumonia; Translations: [Pneumonia, unspecified organism] Onset: 713885-32-4249ZiqusastTxggtwjr codes; unclassified (20 sources)Tobacco user; Translations: [Tobacco use]Onset: EpisodicResidual codes; unclassified (3 sources)Tobacco use; Translations: [Tobacco use]Onset: 16-58-7314Gltypooh Spondylosis; intervertebral disc disorders; other back problems (20 sources)Lumbago with sciatica; Translations: [Lumbago with sciatica, left side]Onset: 63-26-9535EelolywjSjluyrb (20 sources)Situational syncope; Translations: [Syncope and collapse]Onset: 81-97-7673HthchcktSlbbrmwcbalc (1 source)LOW BACK PAIN, UNSPECIFIED; Translations: [LOW BACK PAIN, UNSPECIFIED] Onset: 73-05-4583Cjmrufycsixq (1 source)Acute pain of right xmtckekr03-41-5965Iiwtexqungvx (1 source)Acute pain of left uzzpvhsi24-69-6978 Results Test NameValueInterpretationReference RangeFacilityMRI SHOULDER LEFT WO CONTRAST on 16-05-5072QOF SHOULDER LEFT WO CONTRASTEXAMINATION: MRI OF THE [...] by: Santiago Ngo MD 08/05/25 Final resultNormalMercy Sharon Hospital SHOULDER RIGHT WO CONTRASTon 63-69-2566RGL SHOULDER RIGHT WO CONTRASTEXAMINATION: MRI OF THE [...] the footplate on image 8, series 4. Yvdc-us-snpcwuwc underlying infraspinatus tendinosis. Less than and up [...] tearing of posterior infraspinatus along the footplate. Pdgi-ds-bbkuixcx underlying infraspinatus tendinosis. 3. Less than and up to 50% partial-thickness articular-surface and interstitial tearing of the insertional fibers of subscapularis. 4. Mild diffuse labral degeneration. 5. Mild glenohumeral osteoarthrosis. Mild glenohumeral chondromalacia. 6. Evidence of prior distal clavicular resection. 7. Red marrow reconversion. Interpreted by: Santiago Ngo MD Signed by: Santiago Ngo MD 08/05/25 Final resultNormalMercy Danbury HospitalOtolaryngology Office/Clinic Noteon 44-70-9492Zpuudnubrbucut Office/Clinic NoteChief Complaint PT states, I'm here [...] # 14 tabs, 0 Refill(s), 08/19/25 14:20:00 [facility], Pharmacy: [id number] Provider Comments This note was generated using [...] nasal, Nasal, BID BD U/F SHORT PEN [id number], See Instructions, USE 5 TIMES A DAY FOR INSULIN INJECTIONS cetirizine 10 mg oral tablet, 30 EA, 0 Refill(s), TAKE 1 TABLET BY MOUTH ONCE DAILY diclofenac sodium 75 mg oral delayed release tablet, 60 EA, 0 Refill(s), TAKE 1 TABLET BY MOUTH TWICE DAILY NEEDED DME - Supplies, N/A, N/A, 5x/Day, 15 refills, 2 Freestyle sensors to use (more content not included)...NormalMercy Health West HospitalGlucose, Whole Blood on 86-58-4089Wicptbe [Mass/Vol]239 mg/eWVopv61 - 100 mg/dLBon Cleveland ClinicInterpretation and review of laboratory resultsAbnoSpearfish Regional HospitalGlucose [Mass/Vol]239 mg/eAEcjw96-754GdpobPromedica Toledo HospitalGlucose [Mass/Vol]313 mg/kGIeyx01 - 100 mg/dLBon [facility] Interpretation and review of laboratory resultsAbnoDe Smet Memorial HospitalGlucose [Mass/Vol]313 mg/bNThja68-124Vhvml Wewahitchka HospitalOPERATIVE REPORTon 56-63-6585WVFVIVCFM[address] [address] OPERATIVE REPORT PATIENT NAME:VIRGIL WARNER :1975 MED REC NO:[id number] ROOM:[facility] ACCOUNT NO:[id number] ADMIT DATE:07/23/2025 PROVIDER:Florida Everett MD DATE OF PROCEDURE: 07/23/2025 SURGEON: Florida Everett MD UPHOLSTERY COVERS INSPECTOR: None. PREOPERATIVE DIAGNOSIS: Left renal calculus. POSTOPERATIVE [...] obtained. The patient was transferred from the [facility] onto the operative table where she was [...] awoken from general anesthesia and transferred to [facility], and taken to PACU in satisfactory condition by Nursing and Anesthesia teams. PLAN: The patient will be discharged home per PACU criteria and followup with us in 3 months for repeat KUB. FLOR[place] EVERETT MD CHRIS/ERI Doc#: [id number] Health Administration SINUS WO CONTRASTon 99-56-3020TJ SINUS WO CONTRASTEXAMINATION: CT OF THE SINUS [...] Signed by: Efra Sullivan MD 07/21/25 Final resultNoNewark HospitalXR ABDOMEN (KUB) (SINGLE AP VIEW)on 85-58-7257PU ABDOMEN (KUB) (SINGLE AP VIEW)EXAMINATION: ONE SUPINE [...] Signed by: Ruddy Mallory DO 07/04/25 Final resultNoNewark HospitalCult,Urineon 13-55-7143Tjsl,UrineSpecimen Description .CLEAN CATCH URINE Special Requests Site: Urine Culture NO SIGNIFICANT GROWTH Report Status FINAL 06/29/2025[facility] HospitalComment on above: Performed By: #### CP, MG, TROPI #### [facility] [address] [place] [address] [place] [address] Window Shade Ring Coverer: Phillip Camarena MDUrinalysis w/ Microon 23-90-9987Jgjjokhi5+Abnormal NONEPromedica Toledo HospitalComment on above:Performed By: #### CP, MG, TROPI #### [facility] [address] [place] [address] [place], [place] [id number] Window Shade Ring Coverer: Phillip Camarena MDBilirubin, SemiQt,UrNegativeNormalNEGPromedica Toledo HospitalComment on above:Performed By: #### CP, MG, TROPI #### [facility] [address] [place] [address] [place] [address] Window Shade Ring Coverer: Billy Tran, UrineNegativeUC [facility] Comment on above:Performed By: #### CP, MG, TROPI #### [address] [place], [place] [id number] Window Shade Ring Coverer: DAVID Tranlarity (ClearNormalCLEARPromedica Toledo Hospital Comment on above:Performed By: #### CP, MG, TROPI #### [facility] [address] [place] [address] [place] [address] Window Shade Ring Coverer: DAVID Tranolor ()YellowNoGreene Memorial Hospital Comment on above:Performed By: #### CP, MG, TROPI #### [facility] [address] [place] [address] [place], [place] [phone] Window Shade Ring Coverer: Phillip Camarena MDEpithelial cells LM Ql (Urine sed)2 TO 4Ugqhds2-39 Prom[facility]ica Toledo HospitalComment on above:Performed By: #### CP, MG, TROPI #### [facility] [address] [place] [address] [place], [place] [phone] Window Shade Ring Coverer: Phillip Camarena MDGlucose Ql (U)3+ mg/dLAbnormalTrinity Health System East CampusComment on above:Performed By: #### CP, MG, TROPI #### [facility] [address] [place] [address] [place] [address] Window Shade Ring Coverer: Phillip Camarena MDKetones Ql (U)NegativeNormalNEGPromedica Toledo HospitalComment on above:Performed By: #### CP, MG, TROPI #### [facility] [address] [place] [address] [place] [address] Window Shade Ring Coverer: Phillip Camarena MDLeukocyte esterase Test strip Ql (U)NegativeNormal NEGMercy Wewahitchka HospitalComment on above:Performed By: #### CP, MG, TROPI #### [facility] [address] [place] [address] [place] [address] Window Shade Ring Coverer: Ania Trantrite,UrNegativeUC [facility] Comment on above:Performed By: #### CP, MG, TROPI #### [facility] [address] [place] [address] [place] [address] Window Shade Ring Coverer: BENY Tran,Ur6.5Upxdrb9.0-9.0Prom[facility]edo HospitalComment on above:Performed By: #### CP, MG, TROPI #### [facility] [address] [place] [address] [place] [address] Window Shade Ring Coverer: Mira Tran Ql (U)NegativeNormalNEGPromedica Toledo HospitalComment on above:Performed By: #### CP, MG, TROPI #### [facility] [address] [place] [address] [place] [address] [employer] Shade Ring Coverer: LAY Tranpec. Fernley,Ur1.231Liromm0.010-1.020Promedica Toledo HospitalComment on above:Performed By: #### CP, MG, TROPI #### [facility] [address] [place] [address] [place] [address] Window Shade Ring Coverer: Janessa Tran RBC's0 TO 1Kbibph8-9Viktl [facility] Comment on above:Performed By: #### CP, MG, TROPI #### [facility] [address] [place] [address] Window Shade Ring Coverer: Phillip Camarena MDUrine WBC's0 TO 1Hohxyz6-4TlowgPromedica Toledo Hospital Comment on above:Performed By: #### CP, MG, TROPI #### [facility] [address] [place] [address] Window Shade Ring Coverer: Phillip Camarena MDUrobilinogen,UrNormalNormal0.0-1.0Prom[facility]ica [facility]edo HospitalComment on above:Performed By: #### SAMIA, MG, TROPI #### [facility] [address] [place] [address] Window Shade Ring Coverer: Phillip Camarena MDCTA ABDOMEN W WO CONTRASTon 12-65-9070XJC ABDOMEN W WO CONTRASTEXAM: CTA ABDOMEN AND [...] Signed by: Arlin Freed MD 06/18/25 Final resultNormalMerSaint Mary's Hospital Metabolic Panelon 05-47-1551Zjz, Glom Filt Lhsv73Ddu- PINFBon Cleveland ClinicComment on above: These results are not intended [...] tubular secretion. Interpretation and review of laboratory resultsAbnormalRiverside Doctors' Hospital [facility] Urea nitrogen/Creatinine [Mass ratio]17 mg/mg - Bon [facility] CenterBasic Metabolic Profon 74-06-1246Ywkwe gap [Moles/Vol]14 mmol/LNormal9-16Bon [facility] on above:Performed By: #### CP, MG, TROPI #### [address] [place] [address] Window Shade Ring Coverer: CHERELLE Tran/CRE Rqbmt59Qsfzgd7-65Nzocx [facility] Comment on above:Performed By: #### CP, MG, TROPI #### [address] [place] [address] Window Shade Ring Coverer: DAVID Tranalcium [Mass/Vol]9.7 mg/dLNormal8.6-10.4Bon [facility] on above:Performed By: #### CP, MG, TROPI #### [address] [place] [address] Window Shade Ring Coverer: DAVID Tranhloride [Moles/Vol]103 mmol/LYehoox88-172TqrInova [facility] on above:Performed By: #### CP, MG, TROPI #### [address] [place] [address] Window Shade Ring Coverer: Phillip Camarena MDCO2 [Moles/Vol]22 mmol/NIfodad86-90Ofs [facility] on above:Performed By: #### CP, MG, TROPI #### [address] [place] [address] Window Shade Ring Coverer: DAVID Tranreatinine [Mass/Vol]1.2 mg/dLHigh0.50-0.90[facility] on above:Performed By: #### CP, MG, TROPI #### [address] [place], [place] [address] Window Shade Ring Coverer: Phillip Sturtz, MDGFR/1.73 sq M.predicted among non-blacks MDRD (S/P/Bld) [Vol rate/Area]57 mL/min/{1.73_m2}Low>60[facility] on above:Result Comment: These [...] secretion.Performed By: #### CP, MG, TROPI #### [address] [place] [address] Window Shade Ring Coverer: Phillip Camarena MDGlucose [Mass/Vol]233 mg/nJDlzx55-87Fqs [facility] on above:Performed By: #### SAMIA, MG, TROPI #### [address] [place] [address] Window Shade Ring Coverer: BENY Tranotassium [Moles/Vol]4.5 mmol/LNormal3.7-5.3Bon [facility] on above:Performed By: #### CP, MG, TROPI #### [address] [place], [place] [address] Window Shade Ring Coverer: LAY Tranodium [Moles/Vol]139 mmol/LLmxvgk358-176Gad [facility] on above:Performed By: #### CP, MG, TROPI #### [address] [place] [address] Window Shade Ring Coverer: Phillip Camarena MDUrea nitrogen [Mass/Vol]20 mg/dLNormal6-20Bon [facility] on above:Performed By: #### CP, MG, TROPI #### [address] [place], [facility]83 Window Shade [employer] Coverer: Phillip Camarena MDOtolaryngology Office/Clinic Noteon 06-10-2025 Otolaryngology [...] 30 EA, 0 Refill(s), (more content not included)...[facility] HospitalBasic Metabolic Profon 48-71-7252Gqsgl gap [Moles/Vol]15 mmol/LNormal9-16[facility] HospitalComment on above:Performed By: #### LDLDIR, LIPR #### [employer] [address] [place] [address] Window Shade Ring Coverer: Melvin Santoyo MDBUN/CRE Aahvc60Enjjlc6-21Qhbuy [facility] Comment on above:Performed By: #### LDLDIR, LIPR #### [employer] [address] [place] [address] Window Shade Ring Coverer: DAVID Schultzalcium [Mass/Vol]9.9 mg/dLNormal8.6-10.4[facility] HospitalComment on above:Performed By: #### LDLDIR, LIPR #### [employer] [address] [place], [place] [address] Window Shade Ring Coverer: DAVID Schultzhloride [Moles/Vol]102 mmol/OYxorjp14-663Jvqni [facility] HospitalComment on above:Performed By: #### LDLDIR, LIPR #### [employer] [address] [place], [place] [address] Window Shade Ring Coverer: Melvin Santoyo MDCO2 [Moles/Vol]21 mmol/RFbaqkx97-73Mduxk [facility] HospitalComment on above:Performed By: #### LDLDIR, LIPR #### [employer] [address] [place], [place] [address] Window Shade Ring Coverer: Melvin Santoyo MDCreatinine [Mass/Vol]1.2 mg/dLHigh0.50-0.90[facility] HospitalComment on above:Performed By: #### LDLDIR, LIPR #### [employer] [address] [place] [address] [employer] Sh[employer] Coverer: Melvin Santoyo MDGFR/1.73 sq M.predicted among non-blacks MDRD (S/P/Bld) [Vol rate/Area]56 mL/min/{1.73_m2}Low>60Mercy [facility]wahitchka HospitalComment on above:Result Comment: These results are [...] tubular secretion.Performed By: #### LDLDIR LIPR #### [employer] [address] [place] [address] Window Shade Ring Coverer: Melvin Santoyo MDGlucose [Mass/Vol]207 mg/uSAmtk07-15Pevmd [place] HospitalComment on above:Performed By: #### AISHWARYA LIPR #### [employer] [address] [place] [address] Window Shade Ring Coverer: BENY Schultzotassium [Moles/Vol]4.4 mmol/LNormal3.7-5.3 [facility] HospitalComment on above:Performed By: #### AISHWARYA LIPR #### [employer] [address] [place] [address] Window Shade Ring Coverer: Melvin Santoyo MDSodium [Moles/Vol]138 mmol/FEfheet641-476Asumr [facility] HospitalComment on above:Performed By: #### LAKESHIADIVeda LIPR #### [employer] [address] [place] [address] Window Shade Ring Coverer: Melvin Santoyo MDUrea nitrogen [Mass/Vol]22 mg/dLHigh6-20[facility] HospitalComment on above:Performed By: #### LAKESHIADIVeda LIPR #### [address] [address] Window Shade Ring Coverer: Melvin Santoyo MDBrain Natri. Peptideon 14-26-7600Dpvrblcccpt peptide B (Bld) [Mass/Vol]95 pg/mLNormal0-125[facility] HospitalComment on above:Performed By: #### LDLDIR, LIPR #### [address] [address] Window Shade Ring Coverer: DAVID SchultzBCmaría 65-07-7481Mjckrpohtid distribution width (RBC) [Ratio]13.3 %Miraec09.8-14.4[facility] HospitalComment on above: Performed By: #### LAKESHIADIVeda LIPR #### [address] [address] Window Shade Ring Coverer: Melvin Santoyo MDHematocrit (Bld) [Volume fraction]38.8 %Normal 36.3-47.1Mercy [facility]ahitchka HospitalComment on above:Performed By: #### LDLDIVeda, LIPR #### [address] [address] Window Shade Ring Coverer: Melvin Santoyo MDHemoglobin (Bld) [Mass/Vol]12.4 g/dLNormal 11.9-15.1Mer[facility] HospitalComment on above:Performed By: #### LDLDIVeda, LIPR #### [address] [address] Window Shade Ring Coverer: KATHIE SchultzCH (RBC) [Entitic mass]31.0 nsYrzale00.2-33.5 [facility] HospitalComment on above:Performed By: #### LDLDIR, LIPR #### [address] [address] Window Shade Ring Coverer: KATHIE SchultzCHC (RBC) [Mass/Vol]32.0 g/fKUfbwzr21.4-34.8 [facility] HospitalComment on above:Performed By: #### LDLDIR, LIPR #### [address] [address] Window Shade Ring Coverer: KATHIE SchultzCV (RBC) [Entitic vol]97.0 hLRteqeb99.6-102.9 [facility] HospitalComment on above:Performed By: #### LDLDIR, LIPR #### [address] [address] Window Shade Ring Coverer: MAYDA Schultz Automated0.0 per 100 WBCNormal0.0[facility] HospitalComment on above:Performed By: #### LDLDIR, LIPR #### [address] [address] Window Shade Ring Coverer: Dillon Schultztecory mean volume (Bld) [Entitic vol]9.8 fL Normal8.1-13.5[facility] HospitalComment on above:Performed By: #### LDLDIR, LIPR #### [address] [address] Window Shade Ring Coverer: Dillon Schultztepedro (Bld) [#/Vol]364 10*3/kWRtnrdd459-279 [facility] HospitalComment on above:Performed By: #### LDLDIR, LIPR #### [address] [address] Window Shade Ring Coverer: MANDEEP SchultzBC (Bld) [#/Vol]4.00 10*6/uLNormal3.95-5.11 [facility] HospitalComment on above:Performed By: #### LDLDIR, LIPR #### [address] [address] Window Shade Ring Coverer: PING Schultz (Bld) [#/Vol]7.4 10*3/uLNormal3.5-11.3MSt. Rita's Hospital HospitalComment on above:Performed By: #### LAKESHIADIR, LIPR #### [facility] [address] [place], [place] [address] Window Shade Ring Coverer: Kinza Schultz Metab w/rfx MGon 90-36-1156Pifhm gap [Moles/Vol]12 mmol/LNormal9-16MerRegency Hospital [facility]edo HospitalComment on above:Performed By: #### CP, MG, TROPI #### [address] [place] [address] Window Shade Ring Coverer: Phillip Camarena MDBUN/CRE Jlpsa98Avck7-83LecvkPromedica Toledo Hospital Comment on above:Performed By: #### CP, MG, TROPI #### [address] [place], [place] [address] Window Shade Ring Coverer: DAVID Tranalcium [Mass/Vol]8.7 mg/dLNormal8.6-10.4MerRegency Hospital Toledo HospitalComment on above:Performed By: #### CP, MG, TROPI #### [address] [place], [place] [address] Window Shade Ring Coverer: DAVID Tranhloride [Moles/Vol]107 mmol/WMfgzzg06-232Zmkxc [facility] HospitalComment on above:Performed By: #### CP, MG, TROPI #### [address] [place] [address] Window Shade Ring Coverer: Phillip Camarena MDCO2 [Moles/Vol]20 mmol/LGkbrck17-30Jtpmb [facility] HospitalComment on above:Performed By: #### CP, MG, TROPI #### [address] [place], [place] [address] Window Shade Ring Coverer: Phillip Caamrena MDCreatinine [Mass/Vol]1.1 mg/dLHigh0.50-0.90MerRegency Hospital [facility]edo HospitalComment on above:Performed By: #### CP, MG, TROPI #### [address] [place] [address] Window Shade Ring Coverer: Phillip Camarena MDGFR/1.73 sq M.predicted among non-blacks MDRD (S/P/Bld) [Vol rate/Area]59 mL/min/{1.73_m2}Low>60[facility] HospitalComment on above:Result Comment: These results are [...] secretion.Performed By: #### CP, MG, TROPI #### [address] [place] [address] Window Shade Ring Coverer: Phillip Camarena MDGlucose [Mass/Vol]118 mg/oJQnux91-29Cshnb [facility] HospitalComment on above:Performed By: #### CP, MG, TROPI #### [address] [place] [address] Window Shade Ring Coverer: BENY Tranotassium [Moles/Vol]5.2 mmol/LNormal3.7-5.3Mmercy health anderson hospitaly [place] HospitalComment on above:Performed By: #### CP, MG, TROPI #### [address] [place] [address] Window Shade Ring Coverer: Phillip Camarena MDSodium [Moles/Vol]139 mmol/PYytjcf329-543JsoxdPromedica Toledo HospitalComment on above:Performed By: #### CP, MG, TROPI #### [address] [place] [address] Window Shade Ring Coverer: Phillip Camarena MDUrea nitrogen [Mass/Vol]33 mg/dLHigh6-20MerRegency Hospital Toledo HospitalComment on above:Performed By: #### CP, MG, TROPI #### [facility] [address] [place] [address] Window Shade Ring Coverer: Phillip Camarena MDNatchaug Hospital Metabolic Panel w/ Reflex to MGon 05-31-2025 Anion gap [Moles/Vol]12 mmol/L9 - 16 mmol/LBon SecHardtner Medical Center HealthCalcium [Mass/Vol]8.7 mg/dL8.6 - 10.4 mg/dLBon SecEast Adams Rural HealthcareAmerican Hometown Media HealthChloride [Moles/Vol] 107 mmol/L98 - 107 mmol/LBon [facility]ours [facility] HospitalCO2 [Moles/Vol]20 mmol/L20 - 31 mmol/LBon [facility] ClinicCreatinine [Mass/Vol]1.1 mg/dLHigh0.50 - 0.90 mg/dLBon [facility] HospitalAmerican Hometown Media HealthEst, Glom Filt Oogj18Gak- PINFBon Cleveland ClinicComment on above: These results are not intended [...] that affects renal tubular secretion. Glucose [Mass/Vol]118 mg/mXUufn21 - 99 mg/dLBon [facility] HospitalafterBOT Interpretation and review of laboratory resultsAbnormalBon [facility] Potassium [Moles/Vol]5.2 mmol/L3.7 - 5.3 mmol/LBon SecCincinnati Shriners HospitalSodium [Moles/Vol]139 mmol/L136 - 145 mmol/LBon [facility] ClinicUrea nitrogen [Mass/Vol]33 mg/dLHigh6 - 20 mg/dLBon [facility] ClinicUrea nitrogen/Creatinine [Mass ratio]30 mg/mgHigh9 - 20Bon [facility] HealthBon [facility] ClinicCBC auto differentialon 96-44-1580Xctblfqdv (Bld) [#/Vol] 0.08 10*3/uLBon [facility] HospitalAmerican [facility]ometown [facility] City HospitalBasophils/100 WBC (Bld)1 %0 - 2 %Bon [facility] ClinicEosinophils (Bld) [#/Vol]0.36 10*3/uLBon [facility] Eosinophils/100 WBC (Bld)5 %High1 - 4 %[facility] WilliamsburgErythrocyte distribution width (RBC) [Ratio]13.9 %11.8 - 14.4 %[facility] Hematocrit (Bld) [Volume fraction]35.1 %Low36.3 - 47.1 %[facility] Hemoglobin (Bld) [Mass/Vol]10.7 g/dLLow11.9 - 15.1 g/dLBon [facility] Immature granulocytes (Bld) [#/Vol]0.06 10*3/uLBon Cleveland ClinicImmature granulocytes/100 WBC (Bld)1 %Xlga0RetRiverside Doctors' Hospital WilliamsburgInterpretation and review of laboratory resultsAbnormalRiverside Doctors' Hospital WilliamsburgLymphocytes/100 WBC (Bld)50 %High24 - 43 %[facility] WilliamsburgLymphocytes/100 WBC (Bld)3.35 %[facility]'s DaughtersH (RBC) [Entitic mass]30.5 pg25.2 - 33.5 pgChildren's Hospital of The King's DaughtersHC (RBC) [Mass/Vol]30.5 g/dL28.4 - 34.8 g/dLBon [facility] HospitalV (RBC) [Entitic vol]100.0 fL82.6 - 102.9 fLRiverside Doctors' Hospital Williamsburg Monocytes/100 WBC (Bld)8 %3 - 12 %[facility] WilliamsburgMonocytes/100 WBC (Bld)0.54 %[facility] WilliamsburgNeutrophils/100 WBC (Bld)35 %Low36 - 65 %[facility] WilliamsburgNucleated RBC/100 WBC (Bld) [Ratio]0.0 %0.0 per 100 WBCRiverside Doctors' Hospital WilliamsburgPlatelet mean volume (Bld) [Entitic vol]9.6 fL8.1 - 13.5 fL [facility] WilliamsburgPlatelets (Bld) [#/Vol]328 10*3/uLBon Cleveland ClinicRBC (Bld) [#/Vol]3.51 10*6/uLLow3.95 - 5.11 m/uLBon [facility] Segmented neutrophils/100 WBC (Bld)2.38 %Bon Cleveland ClinicWBC other (Bld) [#/Vol]6.8Bon [facility] ClinicBon Cleveland ClinicCBC with Diffon 90-45-8496Xfb. Basophil0.08 k/uLNormal0.00-0.20[facility] HospitalComment on above:Performed By: #### BMPX, CDP #### [address] [place] [address] Window Shade Ring Coverer: MDAbs. ChelseaImm.Granulocyte0.06 k/uLNormal0.00-0.30MerRegency Hospital [facility]edo HospitalComment on above:Performed By: #### BMPX, CDP #### [address] [place], [facility]83 Window Shade Ring Coverer: Thao Tran.Neutrophil (Seg)2.38 k/uLNormal1.50-8.10MerRegency Hospital [facility]edo HospitalComment on above:Performed By: #### BMPX, CDP #### [address] [place], [place] [address] Window Shade Ring Coverer: Phillip Camarena MDBasophils/100 WBC (Bld)1 %Normal0-2Mer[facility] HospitalComment on above:Performed By: #### BMPX, CDP #### [address] [place], [place] [address] Window Shade Ring Coverer: Phillip Camarena MDEosinophils (Bld) [#/Vol]0.36 10*3/uLNormal 0.00-0.44MerRegency Hospital [facility] HospitalComment on above:Performed By: #### BMPX, CDP #### [address] [place], [place] [address] Window Shade Ring Coverer: MOLLY Tranosinophils/100 WBC (Bld)5 %High1-4[facility] HospitalComment on above:Performed By: #### BMPX, CDP #### [address] [place] [address] Window Shade Ring Coverer: Phillip Camarena MDErythrocyte distribution width (RBC) [Ratio]13.9 % Xgldkd92.8-14.4[facility] HospitalComment on above:Performed By: #### BMPX, CDP #### [address] [place] [address] Window Shade Ring Coverer: Phillip Camarena MDHematocrit (Bld) [Volume fraction]35.1 %Low 36.3-47.1MercMercy Health St[facility] HospitalComment on above:Performed By: #### BMPX, CDP #### [address] [place] [address] Window Shade Ring Coverer: Phillip Camarena MDHemoglobin (Bld) [Mass/Vol]10.7 g/dLLow11.9-15.1 [facility] HospitalComment on above:Performed By: #### BMPX, CDP #### [address] [place] [address] Window Shade Ring Coverer: Phillip Camarena MDImmature granulocytes/100 WBC (Bld)1 %Rcva8OsgjvPromedica Toledo HospitalComment on above:Performed By: #### BMPX, CDP #### [address] [place], [facility]83 Window Shade Ring Coverer: Phillip Camarena MDLymphocytes (Bld) [#/Vol]3.35 10*3/uLNormal 1.10-3.70[facility] HospitalComment on above:Performed By: #### BMPX, CDP #### [address] [place], [place] [address] Window Shade Ring Coverer: Diego Tranmphocytes/100 WBC (Bld)50 %Ymww56-24ArwonPromedica Toledo HospitalComment on above:Performed By: #### BMPX, CDP #### [address] [place] [address] Window Shade Ring Coverer: KATHIE TranCH (RBC) [Entitic mass]30.5 pfNsjrhc85.2-33.5 [facility] HospitalComment on above:Performed By: #### BMPX, CDP #### [address] [place] [address] Window Shade Ring Coverer: KATHIE TranCHC (RBC) [Mass/Vol]30.5 g/wIChtvrt56.4-34.8[facility] HospitalComment on above:Performed By: #### BMPX, CDP #### [address] [place] [address] Window Shade Ring Coverer: KATHIE TranCV (RBC) [Entitic vol]100.0 iYHcisil64.6-102.9 [facility] HospitalComment on above:Performed By: #### BMPX, CDP #### [address] [place] [address] Window Shade Ring Coverer: KATHIE Tranonocytes (Bld) [#/Vol]0.54 10*3/uLNormal0.10-1.20 [facility] HospitalComment on above:Performed By: #### BMPX, CDP #### [address] [place] [address] Window Shade Ring Coverer: KATHIE Tranonocytes/100 WBC (Bld)8 %Normal3-12[facility] HospitalComment on above:Performed By: #### BMPX, CDP #### [address] [place], [place] [address] Window Shade Ring Coverer: Phillip Camarena MDNeutrophil (Seg)35 %Poo22-88PodjrPromedica Toledo Hospital Comment on above:Performed By: #### BMPX, CDP #### [address] [place] [address] Window Shade Ring Coverer: MAYDA Tran Automated0.0 per 100 WBCNormal0.0[facility] HospitalComment on above:Performed By: #### BMPX, CDP #### [address] [place] [address] Window Shade Ring Coverer: Mady Tran mean volume (Bld) [Entitic vol]9.6 fL Normal8.1-13.5[facility] HospitalComment on above:Performed By: #### BMPX, CDP #### [address] [place] [address] Window Shade Ring Coverer: Daly Tran (Bld) [#/Vol]328 10*3/cYJyemaf169-340 [facility] HospitalComment on above:Performed By: #### BMPX, CDP #### [address] [place] [address] Window Shade Ring Coverer: MARY Tran (Bld) [#/Vol]3.51 10*6/uLLow3.95-5.11[facility] HospitalComment on above:Performed By: #### BMPX, CDP #### [address] [place] [address] Window Shade Ring Coverer: PING Tran (Bld) [#/Vol]6.8 10*3/uLNormal3.5-11.3MChillicothe HospitalComment on above:Performed By: #### BMPX, CDP #### [address] [place], [place] [address] Window Shade Ring Coverer: Iliana Tran 72-57-8219YE [Catalytic activity/Vol]242 U/L High26 - 192 U/LBon SecCincinnati Shriners HospitalInterpretation and review of laboratory resultsAbCanton-Inwood Memorial HospitalCreatine Kinaseon [id number] [Catalytic activity/Vol]242 U/YVkfv08-320VjtyoPromedica Toledo Hospital Comment on above:Performed By: #### SAMIA, VLADIMIR NAVARRETE #### [facility] [address] [place] [address] Window Shade Ring Coverer: PATI Tran Rhythm Stripon 56-66-5800BHMDKMARIETTA MEMORIAL HOSPITAL LABRiverside Doctors' Hospital WilliamsburgGlucose, Whole Bloodon 47-10-1664Ztvcmom [Mass/Vol]233 mg/bCSfci06 - 100 mg/dLBon [facility] ClinicInterpretation and review of laboratory resultsAbCanton-Inwood Memorial HospitalGlucose [Mass/Vol]233 mg/bUKmby65-712DfobhPromedica Toledo HospitalGlucose [Mass/Vol]124 mg/iCKfmu78 - 100 mg/dLBCommunity Health SystemsInterpretation and review of laboratory resultsAbCanton-Inwood Memorial HospitalGlucose [Mass/Vol]124 mg/kBTabf40-595EzzquPromedica Toledo HospitalUS Kidneyon 56-05-2342Pcijgsylx renal parenchyma echogenicity bilaterally suggestive of chronic medical renal disease. [facility] CONSOLIDATEDEXAMINATION: RETROPERITONEAL ULTRASOUND OF THE KIDNEYS [...] volume 325 cc, postvoid volume 5 cc [facility] RIS Brock Michael DO - 05/31/2025 [...] bilaterally suggestive of chronic medical renal disease. [facility]erral [facility] (PRN)Radiology Study observation (narrative)[facility] Connectloud KidneyOrdered By: Brock Narvaez on [id number] [facility] HealthPVC [employer]ycl[employer] Work Phone: us RENAL COMPLETEon [phone] RENAL COMPLETE EXAMINATION: RETROPERITONEAL ULTRASOUND OF THE [...] Signed by: Brock Narvaez DO 05/31/25 Final resultNormalPromedica Toledo HospitalBasic Metab w/rfx MGon 50-62-0751Yhfuh gap [Moles/Vol]14 mmol/LNormal9-16[facility] HospitalComment on above: Performed By: #### JANE NEFF #### [employer] [address] [place] [address] Window Shade Ring Coverer: Melvin Santoyo MDBUN/CRE Zovje55Eshssc7-24Grliz [facility] Comment on above:Performed By: #### LDLDIR, LIPR #### [facility] [address] [place] [address] Window Shade Ring Coverer: DAVID Schultzalcium [Mass/Vol]8.5 mg/dLLow8.6-10.4MerRegency Hospital Toledo HospitalComment on above:Performed By: #### LDLDIR, LIPR #### [facility] [address] [place] [address] Window Shade Ring Coverer: Melvin Santoyo MDChloride [Moles/Vol]104 mmol/QNdveuk51-504Znegg [facility] HospitalComment on above:Performed By: #### LDLDIR, LIPR #### [facility] [address] [place] [address] Window Shade Ring Coverer: Melvin Santoyo MDCO2 [Moles/Vol]23 mmol/SFjmwta75-66Wzwkb [facility] HospitalComment on above:Performed By: #### LDLDIR, LIPR #### [facility] [address] [place] [address] Window Shade Ring Coverer: DAVID Schultzreatinine [Mass/Vol]2.4 mg/dLHigh0.50-0.90[facility] HospitalComment on above:Performed By: #### LDLDIR, LIPR #### [facility] [employer] [address] [place] [address] Window Shade Ring Coverer: Melvin Santoyo MDGFR/1.73 sq M.predicted among non-blacks MDRD (S/P/Bld) [Vol rate/Area]24 mL/min/{1.73_m2}Low>60[facility] HospitalComment on above:Result Comment: These results are [...] tubular secretion.Performed By: #### LDLDIR, LIPR #### [facility] [place] [address] Window Shade Ring Coverer: Melvin Santoyo MDGlucose [Mass/Vol]247 mg/yTQsgs18-06Klysf [facility] HospitalComment on above:Performed By: #### LDLDIR, LIPR #### [address] [address] Window Shade Ring Coverer: BENY Schultzotassium [Moles/Vol]4.7 mmol/LNormal3.7-5.3 [facility] HospitalComment on above:Performed By: #### LDLDIR, LIPR #### [facility] [employer] [address] [place] [address] [employer] Shade Ring Coverer: LAY Schultzodium [Moles/Vol]141 mmol/BPliwpp345-748FrehuPromedica Toledo HospitalComment on above:Performed By: #### LDLDIR, LIPR #### [facility] [employer] [address] [place] [address] [employer] Shade Ring Coverer: Melvin Santoyo MDUrea nitrogen [Mass/Vol]48 mg/dLHigh6-20Promedica Toledo HospitalComment on above:Performed By: #### LDLDIR, LIPR #### [address] [address] Window Shade Ring Coverer: Melvin Santoyo MDBabaptist health paducah Metabolic Panel w/ Reflex to MGon [id number] gap [Moles/Vol]14 mmol/L9 - 16 mmol/LBon [facility]Cincinnati [facility]rin[facility] Calcium [Mass/Vol]8.5 mg/dLLow8.6 - 10.4 mg/dLBon [facility] HealthChloride [Moles/Vol]104 mmol/L98 - 107 mmol/LBon [facility] HospitalCO2 [Moles/Vol]23 mmol/L20 - 31 mmol/LBon [facility] HospitalCreatinine [Mass/Vol]2.4 mg/dLHigh 0.50 - 0.90 mg/dLBon Secours [facility] HospitalEst, Glom Filt Miae75Cyq- PINFBon Cleveland ClinicComment on above: These results are not intended [...] that affects renal tubular secretion. Glucose [Mass/Vol]247 mg/jOCtlj70 - 99 mg/dLBon [facility] Interpretation and review of laboratory resultsAbnormLewisGale Hospital Alleghany Potassium [Moles/Vol]4.7 mmol/L3.7 - 5.3 mmol/LBon [place] ClinicSodium [Moles/Vol]141 mmol/L136 - 145 mmol/LBon [facility] ClinicUrea nitrogen [Mass/Vol]48 mg/dLHigh6 - 20 mg/dLBon [place] ClinicUrea nitrogen/Creatinine [Mass ratio]20 mg/mg9 - 20Bon [facility] CenterCBC auto differentialon [id number] (Bld) [#/Vol] 0.09 10*3/uLBon [place] ClinicBasophils/100 WBC (Bld)1 %0 - 2 %[facility] WilliamsburgEosinophils (Bld) [#/Vol]0.32 10*3/uLBon [facility] Eosinophils/100 WBC (Bld)5 %High1 - 4 %[facility] WilliamsburgErythrocyte distribution width (RBC) [Ratio]14.0 %11.8 - 14.4 %[facility] Hematocrit (Bld) [Volume fraction]34.3 %Low36.3 - 47.1 %[facility] Hemoglobin (Bld) [Mass/Vol]10.7 g/dLLow11.9 - 15.1 g/dLBon [facility] Immature granulocytes (Bld) [#/Vol]0.08 10*3/uLBon [facility] ClinicImmature granulocytes/100 WBC (Bld)1 %Yixj3Obe Cleveland ClinicInterpretation and review of laboratory resultsAbnormLewisGale Hospital AlleghanyLymphocytes/100 WBC (Bld)46 %High24 - 43 %Bon SecCincinnati Shriners HospitalLymphocytes/100 WBC (Bld)3.14 %[facility]'s DaughtersH (RBC) [Entitic mass]30.7 pg25.2 - 33.5 pgBon [facility] HospitalHC (RBC) [Mass/Vol]31.2 g/dL28.4 - 34.8 g/dLBon SecNorwalk Memorial HospitalV (RBC) [Entitic vol]98.6 fL82.6 - 102.9 fLBon [facility] Monocytes/100 WBC (Bld)9 %3 - 12 %[facility] WilliamsburgMonocytes/100 WBC (Bld)0.57 %[facility] WilliamsburgNeutrophils/100 WBC (Bld)38 %36 - 65 %Bon [facility] ClinicNucleated RBC/100 WBC (Bld) [Ratio]0.0 %0.0 per 100 WBCBon Cleveland ClinicPlatelet mean volume (Bld) [Entitic vol]10.0 fL8.1 - 13.5 fL [facility] HealthPlatelets (Bld) [#/Vol]339 10*3/uLBon [place] ClinicRBC (Bld) [#/Vol]3.48 10*6/uLLow3.95 - 5.11 m/uLRiverside Doctors' Hospital Williamsburg Segmented neutrophils/100 WBC (Bld)2.52 %[facility] WilliamsburgWBC other (Bld) [#/Vol]6.7Bon SecAspirus Riverview Hospital and ClinicsCBC with Diffon [id number]. Basophil0.09 k/uLNormal0.00-0.20[facility]wahitchka HospitalComment on above:Performed By: #### LDLDIR, LIPR #### [employer] [address] [id number] [employer] Shade Ring Coverer: Thao Schultz.Imm.Granulocyte0.08 k/uLNormal0.00-0.30Mer[facility]ahitch[facility] HospitalComment on above:Performed By: #### LDLDIR, LIPR #### [employer] [address] [place] [address] [employer] Sh[employer] Ring Coverer: Thao Schultz.Neutrophil (Seg)2.52 k/uLNormal1.50-8.10 [facility] HospitalComment on above:Performed By: #### LDLDIR, LIPR #### [address] [address] Window Sh[employer] Ring Coverer: Melvin Santoyo MDBasophils/100 WBC (Bld)1 %Normal0-2Mer[facility]ahitch[facility] HospitalComment on above:Performed By: #### LDLDIVeda, LIPR #### [place] [address] Window [employer] Ring Coverer: Melvin Santoyo MDEosinophils (Bld) [#/Vol]0.32 10*3/uLNormal 0.00-0.44[facility] HospitalComment on above:Performed By: #### LAKESHIADIVeda, LIPR #### [address] [address] [employer] Sh[employer] Ring Coverer: MOLLY Schultzosinophils/100 WBC (Bld)5 %High1-4MerRegency Hospital Toledo HospitalComment on above:Performed By: #### LDLDIVeda, LIPR #### [place] [address] [employer] Coverer: Melvin Santoyo MDErythrocyte distribution width (RBC) [Ratio]14.0 %Xqnyhp53.8-14.4[facility] Medical Centercy Wewahitchka HospitalComment on above:Performed By: #### LDLDIVeda, LIPR #### [place] [address] [employer] Sh[employer] Ring Coverer: Melvin Santoyo MDHematocrit (Bld) [Volume fraction]34.3 %Low 36.3-47.1Mer[facility]ahitchka HospitalComment on above:Performed By: #### LDLDIVeda, LIPR #### [facility] [employer] [address] [place] [address] Window Shade Ring Coverer: Melvin Santoyo MDHemoglobin (Bld) [Mass/Vol]10.7 g/dLLow11.9-15.1 [facility] HospitalComment on above:Performed By: #### LDLDIR, LIPR #### [address] [address] [employer] Sh[employer] Ring Coverer: Cornelio Schultzmature granulocytes/100 WBC (Bld)1 %Yyov7GbvnbPromedica Memorial Hospital HospitalComment on above:Performed By: #### LDLDIR, LIPR #### [address] [address] Window Sh[employer] Ring Coverer: Melvin Santoyo MDLymphocytes (Bld) [#/Vol]3.14 10*3/uLNormal 1.10-3.70[facility] HospitalComment on above:Performed By: #### LDLDIR, LIPR #### [address] [address] Window Shade Ring Coverer: Diego Schultzmphocytes/100 WBC (Bld)46 %Vruc35-15Upshc Tiffin HospitalComment on above:Performed By: #### LDLDIR, LIPR #### [facility] [employer] [address] [place] [address] Window Shade Ring Coverer: KATHIE SchultzCH (RBC) [Entitic mass]30.7 toAcsiwi16.2-33.5 [facility] HospitalComment on above:Performed By: #### LDLDIR, LIPR #### [facility] [employer] [address] [place] [address] Window Sh[employer] Ring Coverer: KATHIE SchultzCHC (RBC) [Mass/Vol]31.2 g/aJVqxpgi24.4-34.8 [facility] HospitalComment on above:Performed By: #### LDLDIR, LIPR #### [facility] [employer] [address] [place] [address] Window Shade Ring Coverer: KATHIE SchultzCV (RBC) [Entitic vol]98.6 rFRajvjd35.6-102.9 [facility] HospitalComment on above:Performed By: #### LDLDIVeda, LIPR #### [address] [address] Window Shade Ring Coverer: KATHIE Schultzonocytes (Bld) [#/Vol]0.57 10*3/uLNormal 0.10-1.20[facility] HospitalComment on above:Performed By: #### LDLDIVeda, LIPR #### [address] [address] Window Shade Ring Coverer: KATHIE Schultzonocytes/100 WBC (Bld)9 %Normal3-12[facility] HospitalComment on above:Performed By: #### LDLDIVeda, LIPR #### [address] [address] Window Shade Ring Coverer: Melvin Santoyo MDNeutrophil (Seg)38 %Varmlz34-74Rhgcv [facility]in HospitalComment on above:Performed By: #### LDLDIVeda, LIPR #### [address] [address] Window Shade Ring Coverer: Melvin Santoyo MDNRBC Automated0.0 per 100 WBCNormal0.0[facility] Medical Centercy [place] HospitalComment on above:Performed By: #### LDLDIR, LIPR #### [address] [address] Window Shade Ring Coverer: BENY Schultzlatelet mean volume (Bld) [Entitic vol]10.0 fL Normal8.1-13.5[facility] HospitalComment on above:Performed By: #### LDLDIR, LIPR #### [address] [address] Window Shade Ring Coverer: BENY Schultzlatelets (Bld) [#/Vol]339 10*3/mMNaxatp221-141 [facility] HospitalComment on above:Performed By: #### LDLDIR, LIPR #### [facility] [address] [place] [address] Window Shade Ring Coverer: Melvin Santoyo [facility] ([facility]) [#/Vol]3.48 10*6/uLLow3.95-5.11[facility] HospitalComment on above:Performed By: #### LDLDIR, LIPR #### [facility] [address] [place] [address] Window Shade Ring Coverer: Melvin Santoyo MDAPI HEALTHCARE ([facility]) [#/Vol]6.7 10*3/uLNormal3.5-11.3MSt. Rita's Hospital HospitalComment on above:Performed By: #### LDLDIR, LIPR #### [facility] [employer] [address] [place] [address] Window Shade Ring Coverer: Melvin Santoyo [facility] OKEMAHardiac echo study Procedureon [id number] Sinus Valsalva2.6 cmBon Secours Mercy HealthAortic Sinus Valsalva Index1.21 cm/m2Bon [facility] Mercy HealthAV Cusp Mmode1.5 cmBon Secours Mercy HealthAV Mean Aofznzdv1gaXfPjn Secours Mercy HealthAV Mean Velocity1.2 m/sBon Secours Mercy HealthAV Peak Oycnlwzw62egWgQpn Secours Mercy HealthAV Peak Velocity1.8 m/sBon Secours Mercy HealthAV Velocity Ratio0.78Bon [facility] Mercy HealthAV VTI31.9 cm [facility] HealthBody surface area Derived from formula2.22 m2Bon [facility] Mercy HealthE/E' Mzvetgy16.92[facility] HealthEF BP68 %55 - 100 %[facility] HealthEF Txzzkzvup97 %[facility]cy HealthEst. RA Pressure3 mmHgBon [...] 52 mLBon Secours Mercy HealthLV E' Lateral Rzyqdfsq83.40 cm/sBon Secours Mercy HealthLV EDV A2C72 mLBon [...] A4C13 mL/m2Bon [facility]ours Mercy HealthLV Mass 2D205.5 pXwnoefoz60 - 162 gBon Secours Mercy HealthLV Mass 2D Index96.0 g/u4Xcodyokq01 - 95 g/m2Bon [facility]ours Mercy HealthLV RWT Ratio0.36[facility] Mercy HealthLVIDd5.6 cmAbnormal3.9 - 5.3 cmBon Secours Mercy HealthLVIDd Index 2.62 cm/m2Bon [facility] Mercy HealthLVIDs3.5 cmBon Secours Mercy HealthLVIDs Index 1.64 cm/m2Bon [facility] Mercy HealthLVOT Mean Neocftwq1lbTxIpw Secours Mercy HealthLVOT Peak Tmjavkzj5oyHlQvj Secours Mercy HealthLVOT Peak Velocity1.4 m/s Bon [facility] Mercy HealthLVOT VTI26.5 cmBon SecSolar Titan Corey HospitalafterBOTLVOT:AV VTI Index 0.83[facility] SecSolar Titan Corey HospitalafterBOTLVPWd1.0 cmAbnormal0.6 - 0.9 cmWarren Memorial HospitalSolar Titan Corey HospitalafterBOTMV A Velocity1.04 m/sBon Secours Corey HospitalafterBOTMV E Velocity1.24 m/sBon Secours Corey HospitalafterBOTMV E Wave Deceleration Yyun083.0 msWarren Memorial HospitalSolar Titan Corey HospitalafterBOT MV E/A1.19Bon [facility] HospitalafterBOTPV Max Velocity1.1 m/sBon Secours Corey HospitalafterBOT PV Peak Ehhwvftt7hoDpSal Secours Corey HospitalafterBOTVjxtdsJRMQ85wjRvUws [facility] SepSensor Sinotubular Junction2.3 cmBon Secours Corey HospitalAmerican Hometown Media HealthTAPSE2.2 cm1.7 cmEncompass [facility] SecSolar Titan Corey HospitalafterBOTTR Max Velocity2.51 m/sBon Secours Corey HospitalafterBOTTR Peak Xaiyfcex85 mmHgWarren Memorial HospitalSolar Titan Corey HospitalafterBOTLeft Ventricle: Normal left ventricular systolic function with [...] quality: adequate. No contrast was given.BSMH CV CPACSPoplar Springs HospitalAmerican Hometown Media HealthRadiology Study observation (narrative)Bon [facility] Metabolic Profon [id number] [Mass/Vol]4.0 g/dLNormal3.5-5.2[facility] HospitalComment on above:Performed By: #### CP, MG, TROPI #### [address] [place], [place] [id number] Window Shade Ring Coverer: Phillip Camarena MDAlbumin/Glob Ratio1.0Aqznlp0.0-2.5[facility] HospitalComment on above:Performed By: #### CP, MG, TROPI #### [address] [place] [address] Window Shade Ring Coverer: Rylie Trankaline Phos80 U/ELbvtvt11-794Posny Tiffin HospitalComment on above:Performed By: #### CP, MG, TROPI #### [address] [place] [address] Window Shade Ring Coverer: Phillip Camarena MDALT [Catalytic activity/Vol]24 U/YCnlnbf44-94Bagbt [facility]in HospitalComment on above:Performed By: #### CP, MG, TROPI #### [address] [place] [address] Window Shade Ring Coverer: Les Tran gap [Moles/Vol]13 mmol/LNormal9-16[facility] HospitalComment on above:Performed By: #### CP, MG, TROPI #### [address] [place] [address] Window Shade Ring Coverer: Phillip Camarena MDAST [Catalytic activity/Vol]25 U/UZzqrew34-29Blcem [facility] HospitalComment on above:Performed By: #### CP, MG, TROPI #### [address] [place], [place] [id number] Window Shade Ring Coverer: Phillip Sturtz, MDBilirubin [Mass/Vol]mg/dLNormal0.00-1.20[facility] HospitalComment on above:Performed By: #### CP, MG, TROPI #### [address] [place] [address] Window Shade Ring Coverer: Phillip Camarena MDBUN/CRE Ytspx78Oivyxu2-53Tqmte [facility] Comment on above:Performed By: #### CP, MG, TROPI #### [address] [place] [address] Window Shade Ring Coverer: DAVID Tranalcium [Mass/Vol]8.9 mg/dLNormal8.6-10.4[facility] HospitalComment on above:Performed By: #### CP, MG, TROPI #### [address] [place], [facility]83 Window Shade Ring Coverer: DAVID Tranhloride [Moles/Vol]103 mmol/MTajbkt80-873Bfmyn [facility]in HospitalComment on above:Performed By: #### CP, MG, TROPI #### [address] [place] [address] Window Shade Ring Coverer: Phillip Camarena MDCO2 [Moles/Vol]22 mmol/YWrpunn16-73UgqqnPromedica Toledo HospitalComment on above:Performed By: #### CP, MG, TROPI #### [address] [place] [address] Window Shade Ring Coverer: DAVID Tranreatinine [Mass/Vol]2.9 mg/dLHigh0.50-0.90Prom[facility] HospitalComment on above:Performed By: #### CP, MG, TROPI #### [address] [place] [address] Window Shade Ring Coverer: Phillip Camarena MDGFR/1.73 sq M.predicted among non-blacks MDRD (S/P/Bld) [Vol rate/Area]19 mL/min/{1.73_m2}Low>60MerNorwalk HospitalComment on above:Result Comment: These results are [...] secretion.Performed By: #### CP, MG, TROPI #### [address] [place] [address] Window Shade Ring Coverer: Phillip Camarena MDGlucose [Mass/Vol]233 mg/tBIrby28-95WqerkChillicothe HospitalComment on above:Performed By: #### CP, MG, TROPI #### [address] [place] [address] Window Shade Ring Coverer: BENY Tranotassium [Moles/Vol]5.3 mmol/LNormal3.7-5.3Mmercy health anderson hospitaly [place] HospitalComment on above:Performed By: #### CP, MG, TROPI #### [address] [place] [address] Window Shade Ring Coverer: Phillip Camarena MDProtein [Mass/Vol]6.9 g/dLNormal6.6-8.7Prom[facility] HospitalComment on above:Performed By: #### CP, MG, TROPI #### [address] [place] [address] Window Shade Ring Coverer: Phillip Camarena MDSodium [Moles/Vol]138 mmol/WYnwfig336-463Qoilg [facility] HospitalComment on above:Performed By: #### CP, MG, TROPI #### [address] [place] [address] Window Shade Ring Coverer: Phillip Camarena MDUrea nitrogen [Mass/Vol]49 mg/dLHigh6-20MerNorwalk HospitalComment on above:Performed By: #### MG GRACIA TROPI #### [facility] [address] [place] [address] Window Shade Ring Coverer: Phillip Camarena [facility] OKEMAHomprehensive Metabolic Panelon [id number] [Mass/Vol]4.0 g/dL3.5 - 5.2 g/dLBon [facility] ClinicAlbumin/Globulin [Mass ratio]1.4 {ratio}1.0 - 2.5Bon SecHardtner Medical Center HealthALP [Catalytic activity/Vol]80 U/L35 - 104 U/LBon SecHardtner Medical Center HealthALT [Catalytic activity/Vol]24 U/L10 - 35 U/LBon SecCincinnati Shriners HospitalAnion gap [Moles/Vol]13 mmol/L9 - 16 mmol/LBon [facility] HealthAST [Catalytic activity/Vol]25 U/L10 - 35 U/LBon [facility] ClinicBilirubin [Mass/Vol]mg/dL0.00 - 1.20 mg/dLBon [facility] Calcium [Mass/Vol]8.9 mg/dL8.6 - 10.4 mg/dLBon [facility] ClinicChloride [Moles/Vol]103 mmol/L98 - 107 mmol/LBon [facility] ClinicCO2 [Moles/Vol]22 mmol/L20 - 31 mmol/LBon [facility] ClinicCreatinine [Mass/Vol]2.9 mg/dLHigh 0.50 - 0.90 mg/dLBon [facility] ClinicEst, Glom Filt Iueg02Yfz- PINFBon Cleveland ClinicComment on above: These results are not intended [...] that affects renal tubular secretion. Glucose [Mass/Vol]233 mg/lRLngn05 - 99 mg/dLBon [facility] HealthPotassium [Moles/Vol]5.3 mmol/L3.7 - 5.3 mmol/LBon [facility] HealthProtein [Mass/Vol] 6.9 g/dL6.6 - 8.7 g/dLBon [facility] ClinicSodium [Moles/Vol]138 mmol/L136 - 145 mmol/LBon [facility] ClinicUrea nitrogen [Mass/Vol]49 mg/dLHigh6 - 20 mg/dLBon [facility] ClinicUrea nitrogen/Creatinine [Mass ratio]17 mg/mg9 - 20 Bon [facility] HealthEKG 12 Leadon 06-86-7885Vafhgs Yvty19LGHJfz [facility] HealthP Dygr74fjxsllhGbrRussell County Medical Center HealthP-R Qvpisvgr794 msRiverside Doctors' Hospital WilliamsburgQ-T Viidpnch385 [facility] Health SystemQRS Jafqrrcr73 msRiverside Doctors' Hospital WilliamsburgQTc Calculation (Bazett)459 [facility] Health SystemR Angwin 13degreesRussell County Medical Center HealthT Jmfi42uengfwdVjgInova Alexandria Hospital Ventricular Sten08VFIUni Cleveland ClinicNormal sinus rhythm Normal ECG ECG not diagnostic for Acute Coronary Syndrome; consider clinical findings When compared with ECG of 16-Jun-2023 17:48, No significant change was found Confirmed by Nathan Ardon ([id number]) on 05/30/2025 8:20:27 AMPiedmont Macon HospitalNathan salmeron MD - 05/30/2025 Normal sinus rhythm Normal ECG ECG not diagnostic for Acute Coronary Syndrome; consider clinical findings When compared with ECG of 16-Jun-2023 17:48, No significant change was found Confirmed by Nathan Ardon ([id number]) on 05/30/2025 8:20:27 AM Bon [facility] CenterEKG Rhythm Stripon 05-30-2025 BannerGlucose, Whole Bloodon 25-09-0367Plsqibb [Mass/Vol]165 mg/dCTxfq13 - 100 mg/dLBon [facility] ClinicInterpretation and review of laboratory resultsAbnormalBon [facility] CenterGlucose [Mass/Vol]165 mg/rGBhpa19-246Kthlo [facility]in HospitalGlucose [Mass/Vol]153 mg/tKCuio08 - 100 mg/dLBon [facility] ClinicInterpretation and review of laboratory resultsAbnormalBath Community HospitalGlucose [Mass/Vol]153 mg/yYGigu69-834Rpjbg T[facility]in HospitalGlucose [Mass/Vol]271 mg/pNCups14 - 100 mg/dLBon [facility] ClinicInterpretation and review of laboratory resultsAbnormRappahannock General HospitalGlucose [Mass/Vol]271 mg/lZFeei10-401Nbwjn [facility]in HospitalGlucose [Mass/Vol]259 mg/aGLeej53 - 100 mg/dLBon [facility] ClinicInterpretation and review of laboratory resultsAbnoSpearfish Regional HospitalGlucose [Mass/Vol]259 mg/vHBmsw54-694WlwoePromedica Toledo HospitalMagnesiumon 74-06-2308Tiwuhdalm [Mass/Vol]2.5 mg/dL1.6 - 2.6 mg/dLBon [facility] Magnesium [Mass/Vol]2.5 mg/dLNormal1.6-2.6MercHospital for Special CareComment on above: Performed By: #### CP, MG, TROPI #### [facility] [address] [place] [address] Window Shade Ring Coverer: Vikas Tran Panel Informationon [id number] and review of laboratory resultsAbCanton-Inwood Memorial HospitalSpecimen Rejectionon [id number] for rejectionUnable to perform testing: Specimen hemolyzed.[facility] Behavioral HospitalComment on above: Performed By: #### LDLDIR, LIPR #### [employer] [address] [place] [address] Window Shade Ring Coverer: Kiya Schultz of sample.BLOODNoNewark HospitalComment on above:Performed By: #### LDLDIR, LIPR #### [facility] [place], [place] [address] Window Shade Ring Coverer: Melita Schultz orderedCP MG TROPINormalPromedica Toledo HospitalComment on above:Performed By: #### JANE NEFF #### [address] [place], [place] [address] Window Shade Ring Coverer: Dian Schultz [id number] and review of laboratory resultsAbnormalSovah Health - Danvilleoponin I.cardiac High sensitivity method [Mass/Vol]28 ng/LHigh0 - 14 ng/LBon [facility] Comment on above:High Sensitivity Troponin values cannot be compared with other Troponin methodologies.Bon [facility] Hospitaloponin, High Sens28 ng/LHigh 0-14Promedica [facility]edo HospitalComuniversity of michigan health–west on above:Result Comment: High Sensitivity Troponin values cannot be compared with other Troponin methodologies.Performed By: #### JANE NEFF #### [address] [id number] Window Shade Ring Coverer: Steve Schultz I.cardiac High sensitivity method [Mass/Vol]31 ng/LHigh0 - 14 ng/LBon [place] ClinicComment on above:High Sensitivity Troponin values cannot be compared with other Troponin methodologies.Troponin, High Sens31 ng/LHigh0-14Prom[facility] HospitalComuniversity of michigan health–west on above:Result Comment: High Sensitivity Troponin values cannot be compared with other Troponin methodologies.Performed By: #### CP, MG, TROPI #### [facility] [address] [place] [address] [place] [address] Window Shade Ring Coverer: BRII Tran CHEST (2 VW)on [id number] CHEST (2 VW) EXAMINATION: TWO XRAY VIEWS [...] Signed by: Bartolome Stewart MD 05/30/25 Final resultNormWhite HospitalXR Chest 2 Viewson [id number] acute cardiopulmonary process. [facility] CONSOLIDATEDEXAMINATION: TWO XRAY VIEWS OF THE CHEST 05/29/2025 11:32 pm COMPARISON: 12/07/2023 HISTORY: ORDERING SYSTEM PROVIDED HISTORY: lightheaded TECHNOLOGIST PROVIDED HISTORY: lightheaded FINDINGS: There are dense breast shadows. The lungs are clear on the lateral image. No confluent airspace disease, pneumothorax or pleural fluid. Heart size and configuration are normal. No acute bone finding. [facility] LAURAWeBartolome solitario MD - 05/30/2025 EXAMINATION: [...] bone finding. IMPRESSION: No acute cardiopulmonary process. [facility] [email or web address] City HospitalXR Chest 2 ViewsOrdered By: Bartolome Stewart on [id number] [facility] HealthSolar Titan [facility] Work Phone: cbc with Auto Differentialon [id number] (Bld) [#/Vol]0.10 10*3/uLRiverside Doctors' Hospital WilliamsburgBasophils/100 WBC (Bld)1 %0 - 2 %[facility] WilliamsburgEosinophils (Bld) [#/Vol]0.40 10*3/uLBon [facility] HealthSolar Titan [facility] HospitalEosinophils/100 WBC (Bld)5 %High1 - 4 %Warren Memorial HospitalAlta Analog SepSensorErythrocyte distribution width (RBC) [Ratio]13.9 %11.8 - 14.4 %[facility]ren Memorial HospitalSolar Titan [facility] Hematocrit (Bld) [Volume fraction]35.3 %Low36.3 - 47.1 %[facility] HospitalCincinnati Shriners Hospital Hemoglobin (Bld) [Mass/Vol]11.5 g/dLLow11.9 - 15.1 g/dLBon [facility] Immature granulocytes (Bld) [#/Vol]0.14 10*3/uLBon [facility] ClinicImmature granulocytes/100 WBC (Bld)2 %Kzyp0Efq Cleveland ClinicInterpretation and review of laboratory resultsAbnormalBon [place] ClinicLymphocytes/100 WBC (Bld)37 %24 - 43 %[facility] WilliamsburgLymphocytes/100 WBC (Bld)2.89 %[facility] King's DaughtersH (RBC) [Entitic mass]31.6 pg25.2 - 33.5 pgChildren's Hospital of The King's DaughtersHC (RBC) [Mass/Vol]32.6 g/dL28.4 - 34.8 g/dLBon [facility] HospitalV (RBC) [Entitic vol]97.0 fL82.6 - 102.9 fLRiverside Doctors' Hospital Williamsburg Monocytes/100 WBC (Bld)10 %3 - 12 %[facility] WilliamsburgMonocytes/100 WBC (Bld)0.79 %[facility] WilliamsburgNeutrophils/100 WBC (Bld)45 %36 - 65 %[facility] WilliamsburgNucleated RBC/100 WBC (Bld) [Ratio]0.0 %0.0 per 100 WBCRiverside Doctors' Hospital WilliamsburgPlatelet mean volume (Bld) [Entitic vol]9.9 fL8.1 - 13.5 fL [facility] WilliamsburgPlatelets (Bld) [#/Vol]379 10*3/uLBon [facility] ClinicRBC (Bld) [#/Vol]3.64 10*6/uLLow3.95 - 5.11 m/uLRiverside Doctors' Hospital Williamsburg Segmented neutrophils/100 WBC (Bld)3.50 %[facility] WilliamsburgWBC other (Bld) [#/Vol]7.8Bon [facility] CenterCBC with Diffon [id number]. Basophil0.10 k/uLNormal0.00-0.20MerNorwalk HospitalComment on above:Performed By: #### LDLDIVeda, LIPR #### [address] [address] Window Shade Ring Coverer: MDAbs. MarionImm.Granulocyte0.14 k/uLNormal0.00-0.30[facility] HospitalComment on above:Performed By: #### AISHWARYA, LIPR #### [place] [address] Window Shade Ring Coverer: Thao Schultz.Neutrophil (Seg)3.50 k/uLNormal1.50-8.10 [facility] HospitalComment on above:Performed By: #### AISHWARYA, LIPR #### [place] [address] Window Shade Ring Coverer: Melvin Santoyo MDBasophils/100 WBC (Bld)1 %Normal0-2[facility] HospitalComment on above:Performed By: #### LAKESHIADIVeda, LIPR #### [address] [address] Window Shade Ring Coverer: Melvin Santoyo MDEosinophils (Bld) [#/Vol]0.40 10*3/uLNormal 0.00-0.44MerReg[facility] Hospital [facility] HospitalComment on above:Performed By: #### LAKESHIADIVeda, LIPR #### [place] [address] Window Shade Ring Coverer: MOLLY Schultzosinophils/100 WBC (Bld)5 %High1-4MerRegency Hospital [facility]edo HospitalComment on above:Performed By: #### LAKESHIADIVeda, LIPR #### [place] [address] Window Shade Ring Coverer: Melvin Santoyo MDErythrocyte distribution width (RBC) [Ratio]13.9 %Bolipt04.8-14.4MerRegency Hospital [facility]edo HospitalComment on above:Performed By: #### LDLDIVeda, LIPR #### [address] [address] Window Shade Ring Coverer: Melvin Santoyo MDHematocrit (Bld) [Volume fraction]35.3 %Low 36.3-47.1MercMercy Health [facility] HospitalComment on above:Performed By: #### LDLDIR, LIPR #### [address] [address] Window Shade Ring Coverer: Melvin Santoyo MDHemoglobin (Bld) [Mass/Vol]11.5 g/dLLow11.9-15.1 [facility] HospitalComment on above:Performed By: #### LDLDIVeda, LIPR #### [address] [address] Window Shade Ring Coverer: Melvin Santoyo MDImmature granulocytes/100 WBC (Bld)2 %Xrqu4JjzckPromedica Memorial Hospital HospitalComment on above:Performed By: #### LDLDIVeda, LIPR #### [address] [address] Window Shade Ring Coverer: Melvin Santoyo MDLymphocytes (Bld) [#/Vol]2.89 10*3/uLNormal 1.10-3.70[facility] HospitalComment on above:Performed By: #### LDLDIR, LIPR #### [address] [address] Window Shade Ring Coverer: Diego Schultzmphocytes/100 WBC (Bld)37 %Fnjgmh23-95Dhxop [facility] HospitalComment on above:Performed By: #### LDLDIR, LIPR #### [address] [address] Window Shade Ring Coverer: KATHIE SchultzCH (RBC) [Entitic mass]31.6 qyGoiazh23.2-33.5 [facility] HospitalComment on above:Performed By: #### LDLDIR, LIPR #### [address] [address] Window Shade Ring Coverer: KATHIE SchultzCHC (RBC) [Mass/Vol]32.6 g/nSSkwvby42.4-34.8 [facility] HospitalComment on above:Performed By: #### LDLDIR, LIPR #### [address] [address] Window Shade Ring Coverer: KATHIE SchultzCV (RBC) [Entitic vol]97.0 gICgebru18.6-102.9 [facility] HospitalComment on above:Performed By: #### LDLDIR, LIPR #### [place] [address] Window Shade Ring Coverer: KATHIE Schultzonocytes (Bld) [#/Vol]0.79 10*3/uLNormal 0.10-1.20[facility] HospitalComment on above:Performed By: #### LDLDIR, LIPR #### [place] [id number] Window Shade Ring Coverer: KATHIE Schultzonocytes/100 WBC (Bld)10 %Normal3-12[facility] HospitalComment on above:Performed By: #### LDLDIR, LIPR #### [address] [address] Window Shade Ring Coverer: Melvin Santoyo MDNeutrophil (Seg)45 %Dqouyu33-94Nfiri [facility] HospitalComment on above:Performed By: #### LDLDIR, LIPR #### [address] [address] Window Shade Ring Coverer: Melvin Santoyo MDNRBC Automated0.0 per 100 WBCNormal0.0[facility] HospitalComment on above:Performed By: #### LDLDIR, LIPR #### [address] [address] Window Shade Ring Coverer: BENY Schultzlatelet mean volume (Bld) [Entitic vol]9.9 fL Normal8.1-13.5[facility] HospitalComment on above:Performed By: #### AISHWARYA LIPR #### [address] [address] Window Shade Ring Coverer: BENY Schultzlatelets (Bld) [#/Vol]379 10*3/mVShvkvm731-534 [facility] HospitalComment on above:Performed By: #### LDLDIR, LIPR #### [address] [address] Window Shade Ring Coverer: Melvin Santoyo KINDRED HOSPITALBC (Bld) [#/Vol]3.64 10*6/uLLow3.95-5.11[facility] on above:Performed By: #### AISHWARYA, LIPR #### [address] [address] Window Shade Ring Coverer: Melvin Santoyo MDWBC (Bld) [#/Vol]7.8 10*3/uLNormal3.5-11.3MChillicothe HospitalComment on above:Performed By: #### AISHWARYA, LIPR #### [address] [address] Window Shade Ring Coverer: DEREJE Schultz-19, Rapidon [id number]-CoV-2 (COVID- 19) RdRp gene ASHLEY+probe Ql (Resp)Not detectedNot DetectedBon [facility] on above: Rapid NAAT: The specimen [...] Methodology: Isothermal Nucleic Acid Amplification Specimen Description.NASOPHARYNGEAL SWABBath Community HospitalFlu A/B Ag Detectionon [id number] A Ag DetectionNegativeNormalNEG [facility] on above:Result Comment: for Influenza A Antigen Performed By: #### LDLDIR, LIPR #### [facility] [address] [place] [address] Window Shade Ring Coverer: Melvin Santoyo MDFlu B Ag DetectionNegativeNormalNEGAdams County Regional Medical Center on above:Result Comment: for Influenza B Antigen.Performed By: #### LAKESHIADIR, LIPR #### [facility] [address] [place], [place] [id number] Window Shade Ring Coverer: Jenny Schultz influenza A/B antigenson [id number] Ag Ql (Unsp spec)NegativeNEGATIVEInova Fair Oaks Hospital on above:for Influenza A AntigenFLUBV Ag Ql (Unsp spec)NegativeNEGATIVEInova Fair Oaks Hospital on above:for Influenza B Antigen.[facility] YIMO-RzU-3pe 53-88-6871THBZ-CoV-2 (COVID-19) RNA ASHLEY+probe Ql (Unsp spec)Not detectedNormalNOTDEOhio State University [facility] on above:Result Comment: Rapid NAAT: The specimen [...] Acid AmplificationPerformed By: #### JANE NEFF #### [facility] [address] [address] [place] [address] Window Shade Ring Coverer: Mick Schultz 43-46-6515FSL Qn0.84 m[IU]/LBon Cleveland ClinicComment on above:Specimen hemolysis has exceeded the interference as defined by Amauri. Value may be falsely increased. Suggest recollection if clinically indicated. [facility] WilliamsburgThyroid Stim. Horm.on 97-05-0930Ttdkjec Stim. Horm.0.84 uIU/mLNormal0.27-4.20[facility] HospitalComment on above:Result Comment: Specimen hemolysis has exceeded the interference as defined by Amauri. Value may be falsely increased. Suggest recollection if clinically indicated.Performed By: #### JANE NEFF #### [facility] [address] [place] [id number] Window Shade Ring Coverer: BRII Schultz Chest 2 Viewson 36-55-3358Rxmfxcptu Study observation (narrative)[facility] WilliamsburgCBCon 18-74-8045Acvzqfzfgyc distribution width (RBC) [Ratio]14.1 %11.8 - 14.4 %[facility] Hematocrit (Bld) [Volume fraction]37.9 %36.3 - 47.1 %[facility] Hemoglobin (Bld) [Mass/Vol]11.4 g/dLLow11.9 - 15.1 g/dLBon [facility] Interpretation and review of laboratory resultsAbnormalRiverside Doctors' [facility] MCH (RBC) [Entitic mass]30.3 pg25.2 - 33.5 pgRiverside Doctors' Hospital WilliamsburgMCHC (RBC) [Mass/Vol]30.1 g/dL28.4 - 34.8 g/dLBCommunity Health SystemsMCV (RBC) [Entitic vol]100.8 fL82.6 - 102.9 fLRiverside Doctors' Hospital WilliamsburgNucleated RBC/100 WBC (Bld) [Ratio]0.0 %0.0 per 100 WBCBon [facility] ClinicPlatelet mean volume (Bld) [Entitic vol]10.2 fL8.1 - 13.5 fLBon [facility] HealthPlatelets (Bld) [#/Vol] 349 10*3/uLBon [facility] ClinicRBC (Bld) [#/Vol]3.76 10*6/uLLow3.95 - 5.11 m/uLBon Cleveland ClinicWBC other (Bld) [#/Vol]7.8Bon [facility] Bon Cleveland ClinicErythrocyte distribution width (RBC) [Ratio]14.1 %Normal 11.8-14.4[facility] HospitalComment on above:Performed By: #### CP, MG, TROPI #### [address] [place] [address] Window Shade Ring Coverer: Phillip Camarena MDHematocrit (Bld) [Volume fraction]37.9 %Normal 36.3-47.1MChillicothe HospitalComment on above:Performed By: #### CP, MG, TROPI #### [address] [place] [address] Window Shade Ring Coverer: Phillip Camarena MDHemoglobin (Bld) [Mass/Vol]11.4 g/dLLow11.9-15.1 [facility] HospitalComment on above:Performed By: #### CP, MG, TROPI #### [address] [place], [place] [phone] Window Shade Ring Coverer: KATHIE TranCH (RBC) [Entitic mass]30.3 usEwsxvq13.2-33.5 [facility] HospitalComment on above:Performed By: #### CP, MG, TROPI #### [address] [place] [address] Window Shade Ring Coverer: KATHIE TranCHC (RBC) [Mass/Vol]30.1 g/kIEijqfe00.4-34.8[facility] HospitalComment on above:Performed By: #### CP, MG, TROPI #### [address] [place] [address] Window Shade Ring Coverer: KISHORE Tran (RBC) [Entitic vol]100.8 cHEtmrza31.6-102.9 [facility] HospitalComment on above:Performed By: #### CP, MG, TROPI #### [address] [place] [address] Window Shade Ring Coverer: MAYDA Tran Automated0.0 per 100 WBCNormal0.0[facility] HospitalComment on above:Performed By: #### CP, MG, TROPI #### [address] [place], [place] [phone] Window Shade Ring Coverer: Mady Tran mean volume (Bld) [Entitic vol]10.2 fL Normal8.1-13.5[facility] HospitalComment on above:Performed By: #### SAMIA, MG, TROPI #### [address] [place], [place] [address] Window Shade Ring Coverer: Daly Tran (Bld) [#/Vol]349 10*3/sGKjqzvd811-877 [facility] HospitalComment on above:Performed By: #### CP, MG, TROPI #### [address] [place], [facility] Window Shade Ring Coverer: MARY Tran (Bld) [#/Vol]3.76 10*6/uLLow3.95-5.11[facility] HospitalComment on above:Performed By: #### CP, MG, TROPI #### [address] [place], [place] [id number] Window Shade Ring Coverer: PING Tran (Bld) [#/Vol]7.8 10*3/uLNormal3.5-11.3[facility] HospitalComment on above:Performed By: #### CP, MG, TROPI #### [address] [place], [place] [phone] Window Shade Ring Coverer: Phillip Camarena MDComp Metabolic Profon 40-34-2433Osvrzlq [Mass/Vol] 4.3 g/dLNormal3.5-5.2[facility] HospitalComment on above:Performed By: #### CP, MG, TROPI #### [address] [place] [address] Window Shade Ring Coverer: Phillip Camarena MDAlbumin/Glob Ratio1.2Hcracb1.0-2.5MerReg[facility] Hospital [facility] HospitalComment on above:Performed By: #### CP, MG, TROPI #### [address] [place], [place] [phone] Window Shade Ring Coverer: Yi Tranline Phos72 U/XAemedi51-871Emxho [facility] HospitalComment on above:Performed By: #### CP, MG, TROPI #### [address] [place], [place] [phone] Window Shade Ring Coverer: Phillip Camarena MDALT [Catalytic activity/Vol]24 U/YLbcync49-73Kssak [place] HospitalComment on above:Performed By: #### CP, MG, TROPI #### [address] [place] [address] Window Shade Ring Coverer: Phillip Camarena MDAnion gap [Moles/Vol]15 mmol/LNormal9-16[facility] HospitalComment on above:Performed By: #### CP, MG, TROPI #### [address] [place], [place] [phone] Window Shade Ring Coverer: Phillip Camarena MDAST [Catalytic activity/Vol]22 U/FLiwjgm51-77Nudfe [facility] HospitalComment on above:Performed By: #### CP, MG, TROPI #### [address] [place], [place] [address] Window Shade Ring Coverer: Phillip Camarena MDBilirubin [Mass/Vol]mg/dLNormal0.00-1.20[facility] HospitalComment on above:Performed By: #### CP, MG, TROPI #### [address] [place] [address] Window Shade Ring Coverer: Phillip Camarena MDBUN/CRE Rejyc15Yano1-45TtlqlPromedica [facility] Hospital Comment on above:Performed By: #### CP, MG, TROPI #### [address] [place] [address] Window Shade Ring Coverer: DAVID Tranalcium [Mass/Vol]9.2 mg/dLNormal8.6-10.4MerReg[facility] HospitalComment on above:Performed By: #### CP, MG, TROPI #### [address] [place] [address] Window Shade Ring Coverer: DAVID Tranhloride [Moles/Vol]104 mmol/FZqfbbb89-388JvajePromedica Toledo HospitalComment on above:Performed By: #### CP, MG, TROPI #### [address] [place] [address] Window Shade Ring Coverer: Phillip Camarena MDCO2 [Moles/Vol]20 mmol/TCqxjbz69-65Hfsmq [facility] HospitalComment on above:Performed By: #### CP, MG, TROPI #### [address] [place], [place] [phone] Window Shade Ring Coverer: DAVID Tranreatinine [Mass/Vol]1.6 mg/dLHigh0.50-0.90[facility] HospitalComment on above:Performed By: #### CP, MG, TROPI #### [address] [place] [address] Window Shade Ring Coverer: Phillip Camarena MDGFR/1.73 sq M.predicted among non-blacks MDRD (S/P/Bld) [Vol rate/Area]40 mL/min/{1.73_m2}Low>60[facility] HospitalComment on above:Result Comment: These results are [...] secretion.Performed By: #### CP, MG, TROPI #### [address] [place] [address] Window Shade Ring Coverer: Phillip Camarena MDGlucose [Mass/Vol]231 mg/iLNaid08-37Xkccy [facility] HospitalComment on above:Performed By: #### CP, MG, TROPI #### [address] [place] [address] Window Shade Ring Coverer: Phillip Camarena MDPotassium [Moles/Vol]5.4 mmol/LHigh3.7-5.3[facility] HospitalComment on above:Performed By: #### CP, MG, TROPI #### [address] [place] [address] Window Shade Ring Coverer: Phillip Camarena MDProtein [Mass/Vol]7.3 g/dLNormal6.6-8.7[facility] HospitalComment on above:Performed By: #### CP, MG, TROPI #### [address] [place] [address] Window Shade Ring Coverer: Phillip Camarena MDSodium [Moles/Vol]139 mmol/ODduipf046-086Syncf [facility] HospitalComment on above:Performed By: #### CP, MG, TROPI #### [facility] [address] [place] [address] Window Shade Ring Coverer: Phillip Camarena MDUrea nitrogen [Mass/Vol]50 mg/dLHigh6-20MerNorwalk HospitalComment on above:Performed By: #### CP, MG, TROPI #### [facility] [address] [place] [address] Window Shade Ring Coverer: Phillip Camarena [facility] OKEMAHomprehensive Metabolic Panelon [id number] [Mass/Vol]4.3 g/dL3.5 - 5.2 g/dLBon [facility] ClinicAlbumin/Globulin [Mass ratio]1.4 {ratio}1.0 - 2.5Bon [facility] HealthALP [Catalytic activity/Vol]72 U/L35 - 104 U/LBon [facility] HealthALT [Catalytic activity/Vol]24 U/L10 - 35 U/LBon [facility] ClinicAnion gap [Moles/Vol]15 mmol/L9 - 16 mmol/LBon [facility] HealthAST [Catalytic activity/Vol]22 U/L10 - 35 U/LBon [facility] ClinicBilirubin [Mass/Vol]mg/dL0.00 - 1.20 mg/dLBon [facility] Calcium [Mass/Vol]9.2 mg/dL8.6 - 10.4 mg/dLBon [facility] ClinicChloride [Moles/Vol]104 mmol/L98 - 107 mmol/LBon [facility] ClinicCO2 [Moles/Vol]20 mmol/L20 - 31 mmol/LBon [facility] ClinicCreatinine [Mass/Vol]1.6 mg/dLHigh 0.50 - 0.90 mg/dLBon [facility] ClinicEst, Glom Filt Giho39Sjj- PINFBon Cleveland ClinicComment on above: These results are not intended [...] that affects renal tubular secretion. Glucose [Mass/Vol]231 mg/gRXgdk27 - 99 mg/dLBon [facility] Interpretation and review of laboratory resultsAbnormalRiverside [facility] Potassium [Moles/Vol]5.4 mmol/LHigh3.7 - 5.3 mmol/LBon [facility] Protein [Mass/Vol]7.3 g/dL6.6 - 8.7 g/dLBon [facility] ClinicSodium [Moles/Vol]139 mmol/L136 - 145 mmol/LBon [facility] ClinicUrea nitrogen [Mass/Vol]50 mg/dLHigh6 - 20 mg/dLBCommunity Health SystemsUrea nitrogen/Creatinine [Mass ratio]31 mg/mgHigh9 - 20Bon [facility] CenterLDL Chol, Directon [id number] Chol, Gauxea68 mg/dLNormal <100[facility] HospitalComment on above:Performed By: #### LDLDIR, LIPR #### [facility] [place] [address] Window Shade Ring Coverer: Melvin Santoyo MDLDL Cholesterol, Directon 30-23-2066Pysazhyaijt in LDL [Mass/Vol]97 mg/dLNINF - 100 mg/dLBon [facility] CenterLipid Panelon [id number] [Mass/Vol]297 mg/dLHigh0 - 199 mg/dLBon [facility] ClinicComment on above: Cholesterol Guidelines: <200 Desirable 200-240 Borderline >240 Undesirable Cholesterol in HDL [Mass/Vol]26 mg/dLLow40 - PINF mg/dLBon [facility] Comment on above: HDL Guidelines: <40 Undesirable 40-59 Borderline >59 Desirable Cholesterol in LDL [Mass/Vol]Can not be calculated0 - 100 mg/dLBon [facility] ClinicComment on above: LDL Guidelines: <100 Desirable 100-129 Near to/above Desirable 130-159 Borderline >159 Undesirable Direct (measured) LDL and calculated LDL are not interchangeable tests. Cholesterol in VLDL [Mass/Vol]Can not be calculated1 - 30 mg/dLBon [facility] ClinicCholesterol.total/Cholesterol in HDL [Mass ratio]11.4 {ratio}HighNINF - 5.0[facility] WilliamsburgInterpretation and review of laboratory results AbnormalRiverside Doctors' Hospital WilliamsburgTriglyceride [Mass/Vol]1012 mg/dLHighNINF - 150 mg/dLBon [facility] ClinicComment on above: Triglyceride Guidelines: <150 Desirable 150-199 Borderline 200-499 High >499 Very high Based on AHA Guidelines for fasting triglyceride, June 2012. [facility] WilliamsburgLipid Profileon [id number] [Mass/Vol]297 mg/dLHigh0-199[facility] on above:Result Comment: Cholesterol Guidelines: <200 Desirable 200-240 Borderline >240 UndesirablePerformed By: #### LDLDIR, LIPR #### [facility] [address] [place] [id number] Window Shade Ring Coverer: DAVID Schultzholesterol in HDL [Mass/Vol]26 mg/dLLow>40[facility] on above:Result Comment: HDL Guidelines: <40 Undesirable 40-59 Borderline >59 DesirablePerformed By: #### LDLDIR, LIPR #### [facility] [address] [place] [phone] Window Shade Ring Coverer: DAVID Schultzholesterol,LDLCan not be calculatedNormal0-100 [facility] on above:Result Comment: LDL Guidelines: <100 Desirable 100-129 Near to/above Desirable 130-159 Borderline >159 Undesirable Direct (measured) LDL and calculated LDL are not interchangeable tests.Performed By: #### LDLDIR, LIPR #### [facility] [address] [place] [phone] Window Shade Ring Coverer: DAVID Schultzholesterol,VLDLCan not be calculatedNormal1-30 [facility] on above:Performed By: #### LDLDIR, LIPR #### [facility] [address] [place] [address] Window Shade Ring Coverer: DAVID Schultzholesterol.total/Cholesterol in HDL [Mass ratio]11.4 {ratio}High<5.0[facility] HospitalComment on above:Performed By: #### LDLDIR LIPR #### [facility] [address] [place], [place] [address] Window Shade Ring Coverer: Melvin Santoyo MDTriglyceride [Mass/Vol]1012 mg/dLHigh<150MerRegency Hospital [facility] HospitalComment on above:Result Comment: Triglyceride Guidelines: <150 Desirable 150-199 Borderline 200-499 High >499 Very high Based on AHA Guidelines for fasting triglyceride, June 2012.Performed By: #### LDLDIVeda LIPR #### [facility] [place], [place] [phone] Window Shade Ring Coverer: PASTOR SchultzEXA BONE DENSITY AXIAL SKELETONon 05-08-2025 DEXA BONE DENSITY AXIAL SKELETONEXAMINATION: BONE DENSITOMETRY 05/02/2025 3:49 pm TECHNIQUE: A bone density dual x-ray absorptiometry (DXA) scan was performed of the lumbar spine and left hip on a [employer] system. COMPARISON: None. HISTORY: ORDERING SYSTEM PROVIDED [...] Signed by: Ameena Oliveira MD 05/08/25 Final resultNoNewark HospitalHemoglobin A1Con 66-45-3903Mtxwgsl glucose Estimated from glycated hemoglobin (Bld) [Mass/Vol]206 mg/dLBon [facility] ClinicComment on above:The ADA and AACC recommend providing the estimated average glucose result to permit better patient understanding of their HBA1c result. HbA1c (Bld) [Mass fraction]8.8 %High4.0 - 6.0 %[facility] Interpretation and review of laboratory resultsAbnormalBon [facility] HospitalGlucose [Mass/Vol]206 mg/dLNoNewark Hospital Comment on above:Result Comment: The ADA and AACC recommend providing the estimated average glucose result to permit better patient understanding of their HBA1c result.Performed By: #### SAMIA MG, TROPI #### [facility] [address] [place] [address] Window Shade Ring Coverer: Phillip Camarena MDHbA1c (Bld) [Mass fraction]8.8 %High4.0-6.0[facility] HospitalComment on above:Performed By: #### SAMIA MG, TROPI #### [facility] [address] [place] [address] Window Shade Ring Coverer: SEVERINO Tran LUMBAR SPINE WO CONTRASTon [id number] LUMBAR SPINE WO CONTRASTEXAM: MRI LUMBAR SPINE [...] by: Mario Alberto Roberts MD 04/16/25 Final resultNormalPromedica Toledo HospitalHemoglobin A1Con 78-90-6754Mrxuycu glucose Estimated from glycated hemoglobin (Bld) [Mass/Vol]200 mg/dLBon [facility] ClinicComment on above:The ADA and AACC recommend providing the estimated average glucose result to permit better patient understanding of their HBA1c result. HbA1c (Bld) [Mass fraction]8.6 %High4.0 - 6.0 %[facility] Interpretation and review of laboratory resultsAbnormalBon [facility] HealthGlucose [Mass/Vol]200 mg/dLNoNewark Hospital Comment on above:Result Comment: The ADA and AACC recommend providing the estimated average glucose result to permit better patient understanding of their HBA1c result.Performed By: #### GLYHGB #### [facility] [address] [place] [address] Window Shade Ring Coverer: Melvin Santoyo MDHbA1c (Bld) [Mass fraction]8.6 %High4.0-6.0[facility] HospitalComment on above:Performed By: #### GLYHGB #### [facility] [address] [place] [address] Window Shade Ring Coverer: Melvin Santoyo MDHemoglobin A1Con 72-40-7269Zrsvraf [Mass/Vol]177 mg/dLNoNewark HospitalComment on above:Result Comment: The ADA and AACC recommend providing the estimated average glucose result to permit better patient understanding of their HBA1c result.Performed By: #### LDLDIR, LIPR #### [employer] [address] [place] [address] Window Shade Ring Coverer: Melvin Santoyo MDHbA1c (Bld) [Mass fraction]7.8 %High4.0-6.0[facility] HospitalComment on above:Performed By: #### LDLDIR, LIPR #### [facility] [address] [place] [address] Window Shade Ring Coverer: Melvin Santoyo [facility] with Auto Differentialon [id number] (Bld) [#/Vol]0.10 10*3/uLBon Secours Mercy HealthBasophils/100 WBC (Bld)1 %0 - 2 %[facility] HealthEosinophils (Bld) [#/Vol]0.00 10*3/uLBon Secours Mercy HealthEosinophils/100 WBC (Bld)0 %0 - 4 %[facility] HealthErythrocyte distribution width (RBC) [Ratio]14.4 %11.5 - 14.9 %[facility] Hematocrit (Bld) [Volume fraction]27.8 %Low36 - 46 %[facility] Hemoglobin (Bld) [Mass/Vol]9.3 g/dLLow12.0 - 16.0 g/dLBon [facility] Interpretation and review of laboratory resultsAbnormalRiverside Doctors' Hospital [facility] Lymphocytes/100 WBC (Bld)24 %24 - 44 %[facility] WilliamsburgLymphocytes/100 WBC (Bld)2.60 %[facility] DaughtersH (RBC) [Entitic mass]31.2 pg26 - 34 pg [facility] DaughtersHC (RBC) [Mass/Vol]33.3 g/dL31 - 37 g/dLBon [facility] HospitalV (RBC) [Entitic vol]93.6 fL80 - 100 fLRiverside Doctors' Hospital Williamsburg Monocytes/100 WBC (Bld)9 %High1 - 7 %[facility] WilliamsburgMonocytes/100 WBC (Bld)1.00 %[facility] WilliamsburgNeutrophils/100 WBC (Bld)66 %36 - 66 %[facility] WilliamsburgPlatelet mean volume (Bld) [Entitic vol]7.1 fL6.0 - 12.0 fL [facility] WilliamsburgPlatelets (Bld) [#/Vol]366 10*3/uLRiverside Doctors' Hospital WilliamsburgRBC (Bld) [#/Vol]2.97 10*6/uLLow4.0 - 5.2 m/uLRiverside Doctors' Hospital Williamsburg Segmented neutrophils/100 WBC (Bld)7.40 %[facility] WilliamsburgWBC other (Bld) [#/Vol]11.2HighBath Community HospitalCBC with Diffon [id number]. Basophil0.10 k/uLNormal0.0-0.2[facility] Medical CenterComment on above:Performed By: #### CDP, CMPX #### [facility] [address] [place] [address] Window Shade Ring Coverer: Ed Mcduffie DOAbs.Neutrophil (Seg)7.40 k/uLNormal1.3-9.1 [facility] on above:Performed By: #### RICK, CMPX #### [facility] [place] [address] Window Shade Ring Coverer: Ed Mcduffie DOBasophils/100 WBC (Bld)1 %Normal0-2Mmercy health anderson hospitaly [facility] CenterComuniversity of mich[facility] on above:Performed By: #### CDP, CMPX #### [facility] [address] [place] [address] [employer] Coverer: Ed Mcduffie DOEosinophils (Bld) [#/Vol]0.00 10*3/uLNormal 0.0-0.4[facility] HospitalComun[facility] on above:Performed By: #### RICK, CMPX #### [facility] [address] [place] [address] [employer] Shade Ring Coverer: Ed Mcduffie DOEosinophils/100 WBC (Bld)0 %Normal0-4[facility] HospitalComun[facility] of [facility] on above:Performed By: #### RICK, CMPX #### [facility] [address] [place] [address] [employer] Coverer: Ed Mcduffie DOErythrocyte distribution width (RBC) [Ratio] 14.4 %Zvbfwl20.5-14.9[facility] on above:Performed By: #### RICK, CMPX #### [facility] [address] [place] [address] [employer] Coverer: Ed Mcduffie DOHematocrit (Bld) [Volume fraction]27.8 %Low 36-46[facility] HospitalComuniversity of [facility] on above:Performed By: #### CDP, CMPX #### [facility] [address] [place] [address] [employer] Coverer: Fanelly, Ed, DOHemoglobin (Bld) [Mass/Vol]9.3 g/dLLow 12.0-16.0[facility] on above:Performed By: #### CDP, CMPX #### [facility] [address] [place] [address] Window Shade Ring Coverer: Ed Mcduffie DOLymphocytes (Bld) [#/Vol]2.60 10*3/uLNormal 1.0-4.8[facility] HospitalComun[facility] on above:Performed By: #### CDP, CMPX #### [facility] [address] [place] [address] [employer] Coverer: Ed Mcduffie DOLymphocytes/100 WBC (Bld)24 %Yjmhix83-20OlupgWayne Hospital on above:Performed By: #### CDP, CMPX #### [facility] [address] [place] [address] [employer] Coverer: Ed Mcduffie DOMCH (RBC) [Entitic mass]31.2 irGrjlds47-07 [facility] on above:Performed By: #### RICK, CMPX #### [facility] [address] [place] [address] [employer] Coverer: Ed Mcduffie DOMCHC (RBC) [Mass/Vol]33.3 g/xBChwpeo17-02 [facility] on above:Performed By: #### RICK, CMPX #### [facility] [address] [place] [address] [employer] Coverer: Ed Mcduffie DOMCV (RBC) [Entitic vol]93.6 gFXmsxlo32-356 [facility] on above:Performed By: #### CDP, CMPX #### [facility] [address] [place] [address] [employer] Coverer: Ed Mcduffie DOMonocytes (Bld) [#/Vol]1.00 10*3/uLNormal 0.1-1.3[facility] Medical CenterComment on above:Performed By: #### CDP, CMPX #### [facility] [address] [facility] [place] [address] Window Shade Ring Coverer: Ed Mcduffie DOMonocytes/100 WBC (Bld)9 %High1-7[facility] HospitalComment on above:Performed By: #### CDP, CMPX #### [facility] [address] [place] [address]. [place] [address] Window Sh[employer] Ring Coverer: Ed Mcduffie DONeutrophil (Seg)66 %Ctljsz40-65YcgvfHarrison Community HospitalComment on above:Performed By: #### CDP, CMPX #### [facility] [address] [place] [address]. [place] [address] [employer] Sh[employer] Coverer: Ed Mcduffie DOPlatecory mean volume (Bld) [Entitic vol]7.1 fLNormal6.0-12.0[facility] Centercy [facility] CenterComuniversity of [facility] on above:Performed By: #### CDP, CMPX #### [facility] [address] [place] [address]. [place] [address] [employer] Sh[employer] Coverer: Ed Mcduffie DOPlatelets (Bld) [#/Vol]366 10*3/uLNormal 150-450[facility] CenterComuniversity of [facility] on above:Performed By: #### CDP, CMPX #### [facility] [address] [place] [address]. [place] [address] Window Shade Ring Coverer: Ed Mcduffie DORBC (Bld) [#/Vol]2.97 10*6/uLLow4.0-5.2[facility] CenterComuniversity of [facility] on above:Performed By: #### CDP, CMPX #### [facility] [address] [facility] [place] [address] Window Shade Ring Coverer: Ed Mcduffie DOWBC (Bld) [#/Vol]11.2 10*3/uLHigh3.5-11.0 [facility] HospitalComment on above:Performed By: #### CDP, CMPX #### [facility] [address] [place] [address] Window Shade Ring Coverer: Ed Mcduffie DOComp Metabolic Pr/rfx MGon 10-65-1229Rxchquo [Mass/Vol]4.1 g/dLNormal3.5-5.2[facility] Medical CenterComment on above: Performed By: #### CDP, CMPX ####[facility] [address] [place], [place] [phone] Director: Ed Mcduffie DO Alkaline Phos54 U/WOwuoxh76-683SltzgHarrison Community HospitalComment on above: Performed By: #### RICK, CMPX ####[facility] [address]is[address] [place], [place] [phone] Director: Ed Mcduffie DOALT [Catalytic activity/Vol]11 U/FOrydjs20-41XokaxHarrison Community HospitalComment on above:Performed By: #### RICK, CMPX ####[facility] [address] [facility].[place], [place] [phone] Director: Ed Mcduffie DO Anion gap [Moles/Vol]12 mmol/LNormal9-16[facility] Community HospitalComment on above:Performed By: #### RIKC, CMPX ####[facility] [address] [place], [place] [phone] Director: Ed Mcduffie DOAST [Catalytic activity/Vol]19 U/QXvzpuh65-95UlzyeHarrison Community HospitalComment on above:Performed By: #### CDP, CMPX ####[facility] [address] [facility].[place], [place] [phone] Director: Ed Mcduffie DO Bilirubin [Mass/Vol]mg/dLNormal0.0-1.2MOhioHealth Pickerington Methodist HospitalComment on above:Performed By: #### RICK, CMPX ####[facility] [address] [place] [address].[place], [place] [phone] Director: Ed Mcduffie DO Calcium [Mass/Vol]9.2 mg/dLNormal8.6-10.4[facility] Community HospitalComment on above:Performed By: #### RICK, ROSALBAX ####[address], [place] [phone] Director: Ed Mcduffie DO Chloride [Moles/Vol]102 mmol/GFiglry27-286KtzwbHarrison Community HospitalComment on above:Performed By: #### RICK, CMPX ####[facility] [address] [place] [address].[place], [place] [phone] Director: Ed Mcduffie DOCO2 [Moles/Vol]23 mmol/NFikpdl85-58RthzmHarrison Community HospitalComuniversity of mich[facility] on above: Performed By: #### RICK, CMPX ####[address], [place] [phone] Director: Ed Mcduffie DO Creatinine [Mass/Vol]1.0 mg/dLNormal0.7-1.2MOhioHealth Pickerington Methodist HospitalComment on above:Performed By: #### RICK, CMPX ####[address] [phone] Director: Ed Mcduffie DO GFR/1.73 sq M.predicted among non-blacks MDRD (S/P/Bld) [Vol rate/Area]68 mL/min/{1.73_m2}Normal>60[facility] on above:Result Comment: These [...] renal tubular secretion.Performed By: #### RICK, CMPX ####[facility] [address] [place], [place] [address] [phone] Director: Ed Mcduffie DOGlucose [Mass/Vol]294 mg/dL Qfjk35-11Rbxqk [facility] on above:Performed By: #### RICK, CMPX ####[address] [phone] Director: Ed Mcduffie DOPotassium [Moles/Vol]4.7 mmol/LNormal3.7-5.3[facility] CenterComuniversity of [facility] on above:Performed By: #### RICK, CMPX ####[facility] [address] [place] [address] [phone] Director: Ed Mcduffie DOProtein [Mass/Vol]6.7 g/dL Normal6.6-8.7MerKettering Health Troy on above:Performed By: #### RICK, CMPX ####[facility] [address] [place] [address] [phone] Director: Ed Mcduffie DOSodium [Moles/Vol]137 mmol/L Awinkk175-349NqwlhKettering Health Troy on above:Performed By: #### RICK, CMPX ####[facility] [address] [place] [address].[place], [place] [address] [phone] Director: Ed Mcduffie DOUrea nitrogen [Mass/Vol]28 mg/dLHigh6-20Mercy Mart HospitalComment on above:Performed By: #### CDP, CMPX ####[facility] [address] [address] [address] [facility] Director: Ed Mcduffie DOComprehensive Metabolic Panel w/ Reflex to MGon 80-71-4960Wgxhmrv [Mass/Vol]4.1 g/dL3.5 - 5.2 g/dLBon SecEast Adams Rural HealthcareAmerican Hometown Media HealthALP [Catalytic activity/Vol]54 U/L35 - 104 U/LBon SecEast Adams Rural HealthcareAmerican Hometown Media HealthALT [Catalytic activity/Vol]11 U/L10 - 35 U/LBon Secours Corey HospitalafterBOTAnion gap [Moles/Vol]12 mmol/L9 - 16 mmol/LBon Secours Corey HospitalAmerican Hometown Media HealthAST [Catalytic activity/Vol]19 U/L10 - 35 U/LBon SecEast Adams Rural HealthcareafterBOTBilirubin [Mass/Vol]mg/dL 0.0 - 1.2 mg/dLBon [facility] [employer] City HospitalCalcium [Mass/Vol]9.2 mg/dL8.6 - 10.4 mg/dLBon SecEast Adams Rural HealthcareAmerican Hometown Media City HospitalChloride [Moles/Vol]102 mmol/L98 - 107 mmol/LBon Secours Corey HospitalAmerican Hometown Media HealthCO2 [Moles/Vol]23 mmol/L20 - 31 mmol/LBon [facility] HospitalAmerican Hometown Media City HospitalCreatinine [Mass/Vol]1.0 mg/dL0.7 - 1.2 mg/dLBon SecEast Adams Rural HealthcareAmerican Hometown Media City HospitalEst, Glom Filt Rate68- PINFBon Cleveland ClinicComment on above: These results are not intended [...] that affects renal tubular secretion. Glucose [Mass/Vol]294 mg/mWGenk62 - 99 mg/dLBon [facility] HealthPVC Recycling Interpretation and review of laboratory resultsAbnormalBon [facility] Chinese HospitalafterBOT Potassium [Moles/Vol]4.7 mmol/L3.7 - 5.3 mmol/LBon Secours Mercy HealthProtein [Mass/Vol]6.7 g/dL6.6 - 8.7 g/dLBon [facility] ClinicSodium [Moles/Vol]137 mmol/L136 - 145 mmol/LBon Cleveland ClinicUrea nitrogen [Mass/Vol]28 mg/dL High6 - 20 mg/dLBon [facility] Healthcare CenterGlucose,Whole Bloodon 85-99-1428Iltizwz [Mass/Vol]381 mg/lYYacw44-975FfllaHarrison Community HospitalGlucose [Mass/Vol]310 mg/sWKucj69-082CcglsHarrison Community HospitalGlucose [Mass/Vol]297 mg/rAMtoy38-652UvjgfHarrison Community HospitalPO Glucose Fingerstickon 00-32-9889Ehzicmy [Mass/Vol]381 mg/gZAtxc03 - 105 mg/dLBon [facility] Interpretation and review of laboratory resultsAbnormalBon Secours St. Mary'S HospitalGlucose [Mass/Vol]310 mg/rWNjoy84 - 105 mg/dLBon Cleveland ClinicInterpretation and review of laboratory resultsAbnormalBath Community HospitalGlucose [Mass/Vol]297 mg/kWQeme41 - 105 mg/dLBon Cleveland ClinicInterpretation and review of laboratory results AbnormalBon [facility] Healthcare CenterFLUORO FOR SURGICAL PROCEDURESon 07-34-7921TAYHXD FOR SURGICAL PROCEDURESRadiology exam is complete. No Radiologist dictation. Please follow up with ordering provider. Final resultNormalMercy Dayton Va Medical CenterGlucose,Whole Bloodon 09-14-2024 Glucose [Mass/Vol]353 mg/pVUrsm87-695TisppHarrison Community HospitalGlucose [Mass/Vol]402 mg/dLCritically ojgv92-535LvstoHarrison Community HospitalGlucose [Mass/Vol]301 mg/dGKmqt53-783BdbmlHarrison Community HospitalGlucose [Mass/Vol]280 mg/cTTdok15-649Tmfeq [address]. Charles HospitalGuidance-- during surgeryon 09-14-2024 Radiology exam is complete. No Radiologist dictation. Please follow up with ordering provider. PN RIS CONSOLIDATEDNo Panel Informationon . Postsurgical changes of the left foot without visualized complication. 2. Questioned minimal anterior subluxation of the talus in relation to the distal tibia. 3. Note that overlying casting material obscures fine bony detail. [facility] CONSOLIDATEDEXAMINATION: THREE XRAY VIEWS OF THE [...] material. No lytic or blastic lesions present. [facility] Hollie Landry MD - 09/14/2024 EXAMINATION: [...] overlying casting material obscures fine bony detail. [facility] Spring PharmaceuticalsSentara RMH Medical CenterRadiology Study observation (narrative)[facility] Physician Referral Network (PRN)No Panel InformationOrdered By: Hollie Patiño on [phone] [facility] Physician Referral Network (PRN) Work Phone: POC Glucose Fingerstickon 23-52-4126Vhvabmj [Mass/Vol] 353 mg/zBVwbt94 - 105 mg/dLBon [facility] SepSensorInterpretation and review of laboratory resultsAbnormRappahannock General Hospital Glucose [Mass/Vol]402 mg/dLCritically high65 - 105 mg/dLBCommunity Health Systems Interpretation and review of laboratory resultsAbnormInova Alexandria HospitalGlucose [Mass/Vol]301 mg/vJFfye72 - 105 mg/dLBon [facility] ClinicInterpretation and review of laboratory resultsAbnormalBath Community HospitalGlucose [Mass/Vol]280 mg/rHEmjq74 - 105 mg/dLBon Cleveland ClinicInterpretation and review of laboratory results [facility] CenterSurgical Pathology Reporton [id number] Pathology Report(NOTE) Path Number: [id number] -- Diagnosis -- ORTHOPEDIC HARDWARE, LEFT ANKLE, [...] x 0.6 cm. One bears the inscription [phone] [id number] 160MM ID 2 CE and the other [phone] [id number] 160MM ID 2 CE. There is a C-shaped conner metallic component that is 17.0 x 1.5 x 0.6 cm bearing the inscription [phone] 140MM ID 2. There is a U-shaped conner metallic device that is roughly 51.0 x 4.0 x 0.9 cm bearing the inscription [phone] [id number] CE 123 140MM ID. It has two threaded regions and two embedded conner metallic threaded screws that are 2.9 to 3.0 cm in length x 0.6 to 1.4 cm in diameter, with attached nuts. One screw bears the inscription [id number] 54-1152 CE and the other [id number] 84-1152 CE. There are two black to conner metallic and rubbery components that are 28.8 x 3.5 x 2.3 cm. It bears the inscription FRONT and [id number] CE 2. It has two additional black to conner metallic components attached by threaded screws and washers that are 5.7 cm in length x 0.6 to 1.0 cm in diameter. These components there the inscription B34CE 2. There are four conner metallic rectangular components each with four hollow spaces. It is 5.7 x 1.2 x 0.9 cm. They bear inscription [phone] CE [id number], [phone] CE 1000596, [phone] CE [id number] and [phone] CE [id number]. There is a 3.3 x 1.2 x 0.9 cm conner metallic component with two hollow spaces that bears the inscription [phone] CE [id number]. There are eighteen conner, metallic, hexagonal threaded [...] diameter. They bear the inscriptions [phone] 16 [id number], 54-2233 16 [id number], 54-2233 16 [id number] and 54-2233 16 [id number]. There are three threaded conner, metallic bolt-like components that are 1.0 cm in length x 1.5 cm in diameter that there the inscription 54-2235 [id number], 54-2235 [id number] and 54-2235 [id number]. There are fourteen threaded conner, metallic components that are 2.9 cm in length x 0.6 to 1.4 cm in diameter, eight of which that bear the inscription [id number] 54-1152 CE. One bears the inscription [id number] 54-1152 CE and another [id number] 54-1152 CE. Two bare the inscription [id number] 54-1152 CE. Two bear the inscription [id number] 54-1152 CE. Lastly, there are four additional conner to black components that vary in size from 20.0 to 21.0 cm in length x 0.6 to 2.5 cm in diameter bearing inscriptions [phone] [id number] CE TLR STRUT-LONG 2 , 50-1090 [id number] CE TLR STRUT-LONG 2 , 50-78780 [id number] CE TLR STRUT-LONG 2 , and 50-03566 [id number] CE TLR STRUT-LONG 2. No sections are submitted for microscopic evaluation. Gross exam only. Yadira Wright./se:09/17/2024 Processing Lab: [address] [phone] Interpretation Performed at [address] [phone] SURGICAL PATHOLOGY CONSULTATION Patient Name: VIRGIL WARNER [facility] Rec: [id number] [facility] ANATOMIC PATHOLOGY [facility] [place] HospitalLos [place], [place] [phone] NoOhio Valley HospitalXR ANKLE LEFT (MIN 3 VIEWS)on 66-59-3049UA ANKLE LEFT (MIN 3 VIEWS)EXAMINATION: THREE XRAY [...] Signed by: Hollie Patiño MD 09/14/24 Final resultNormRegency Hospital Cleveland WestXR FOOT LEFT (MIN 3 VIEWS)on 11-10-8436IT FOOT LEFT (MIN 3 VIEWS)EXAMINATION: THREE XRAY [...] by: Hollie Patiño MD 09/14/24 Final resultNormalMercy Dayton Va Medical CenterXR TIBIA FIBULA LEFT (2 VIEWS)on 59-50-7691HP TIBIA FIBULA LEFT (2 VIEWS)EXAMINATION: THREE XRAY [...] by: Hollie Patiño MD 09/14/24 Final resultNormalMercy Regency [facility] Metabolic Panelon 09-07-2024 Anion gap [Moles/Vol]13 mmol/L9 - 16 mmol/LBon SecAster DM Healthcare HealthCalcium [Mass/Vol]10.4 mg/dL8.6 - 10.4 mg/dLBon SecAster DM Healthcare HealthChloride [Moles/Vol] 104 mmol/L98 - 107 mmol/LBon SecAster DM Healthcare HealthCO2 [Moles/Vol]25 mmol/L20 - 31 mmol/LBon SecAster DM Healthcare HealthCreatinine [Mass/Vol]1.1 mg/dL0.7 - 1.2 mg/dLBon SecAster DM Healthcare HealthEst, Glom Filt Rate61- PINFBon ConnectloudComment on above: These results are not intended [...] secretion. Glucose [Mass/Vol]90 mg/dL74 - 99 mg/dLBon ConnectloudInterpretation and review of laboratory resultsAbnormalBon Zavedenia.com HealthPotassium [Moles/Vol]4.8 mmol/L3.7 - 5.3 mmol/LBon Zavedenia.com HealthComment on above: Specimen hemolysis has exceeded the interference as defined by Amauri. Value may be falsely increased. Suggest recollection if clinically indicated. Sodium [Moles/Vol]142 mmol/L136 - 145 mmol/LBon ConnectloudUrea nitrogen [Mass/Vol]27 mg/dLHigh6 - 20 mg/dLBon SecAster DM Healthcare HealthBon SecPVC RecyclingBasic Metabolic Profon 39-11-7770Hvvax gap [Moles/Vol]13 mmol/L Normal9-16H[facility] Community HospitalComment on above:Performed By: #### LASHON, CDP ####[facility] [address] [facility], [place] [address] [phone] Director: Ed Mcduffie DOCalcium [Mass/Vol]10.4 mg/dL Normal8.6-10.4[facility] HospitalComuniversity of mich[facility] health–west on above:Performed By: #### BMP, CDP ####[facility] [address] [facility].[place], [place] [address] [phone] Director: Ed Mcduffie DOChloride [Moles/Vol]104 mmol/L Ykosee96-122OpxyyHarrison Community HospitalComuniversity of michigan health–west on above:Performed By: #### LASHON, CDP ####[place] [address] [facility].[place], [place] [address] [phone] Director: Ed Mcduffie DOCO2 [Moles/Vol]25 mmol/LNormal 20-31[facility] HospitalComuniversity of [facility] on above:Performed By: #### LASHON, CDP ####[facility] [address] [facility], [place] [address] [phone] Director: Ed Mcduffie DOCreatinine [Mass/Vol]1.1 mg/dL Normal0.7-1.2MercFayette County Memorial HospitalComuniversity of mich[facility] on above:Performed By: #### LASHON, CDP ####[facility] [address] [place] [phone] Director: Ed Mcduffie DOGFR/1.73 sq M.predicted among non-blacks MDRD (S/P/Bld) [Vol rate/Area]61 mL/min/{1.73_m2}Normal>60MerAdams County Regional Medical CenterComuniversity of mich[facility] on above:Result Comment: These results are not [...] renal tubular secretion.Performed By: #### BMP, CDP ####[facility] [address] [place], [place] [address] [phone] Director: Ed Mcduffie DOGlucose [Mass/Vol]90 mg/dL Mqqnri58-89Ujomu [facility] CenterComment on above:Performed By: #### BMP, CDP ####[facility] [address] [place], [place] [address] [phone] Director: Ed Mcduffie DOPotassium [Moles/Vol]4.8 mmol/LNormal3.7-5.3[facility] Medical CenterComment on above:Result Comment: Specimen hemolysis has exceeded the interference as defined by Amauri. Value may be falsely increased. Suggest recollection if clinically indicated.Performed By: #### BMP, CDP ####[facility] [address] [facility].[place], [place] [phone] Director: Ed Mcduffie DOSodium [Moles/Vol]142 mmol/RTwijib481-886HpuvcAdams County Regional Medical CenterComuniversity of [facility] on above:Performed By: #### BMP, CDP ####[address], [place] [phone] Director: Ed Mcduffie DOUrea nitrogen [Mass/Vol]27 mg/dLHigh6-20MerAdams County Regional Medical CenterComuniversity of [facility] on above:Performed By: #### LASHON, CDP ####[facility] [address] [place] [address].[place], [place] [phone] Director: Ed Mcduffie DOCBC with Auto Differentialon 04-24-3921Heycgwyir (Bld) [#/Vol]0.10 10*3/uLBon [facility] Interpretation and review of laboratory resultsAbnormalBon [facility] Lymphocytes/100 WBC (Bld)3.20 %[facility] WilliamsburgMonocytes/100 WBC (Bld) 0.70 %[facility] WilliamsburgNeutrophils/100 WBC (Bld)43 %36 - 66 %[facility] WilliamsburgSegmented neutrophils/100 WBC (Bld)3.30 %[facility] WilliamsburgWBC other (Bld) [#/Vol]7.6Bon [facility] ClinicBon Cleveland ClinicCBC with Diffon 95-42-7508Mga. Basophil0.10 k/uLNormal0.0-0.2Mmercy health anderson hospitaly [facility] Comment on above:Performed By: #### LASHON, CDP ####[facility] [address]sx[address] [place] [address] Lab Director: Ed Mcduffie DOAbs.Neutrophil (Seg)3.30 k/uLNormal1.3-9.1MercFayette County Memorial HospitalComment on above:Performed By: #### LASHON, CDP ####[facility] J[address] [facility] [place] [address] Lab Director: Ed Mcduffie DOBasophils/100 WBC (Bld)1 %Normal0-2Bon [facility] Comment on above:Performed By: #### LASHON, CDP ####[facility] [address] [facility] [place] [address] Lab Director: Ed Mcduffie DOEosinophils (Bld) [#/Vol]0.40 10*3/uLNormal0.0-0.4Bon [facility] ClinicComment on above:Performed By: #### LASHON, CDP ####[facility] [address] [facility] [place] [address] Lab Director: Ed Mcduffie DOEosinophils/100 WBC (Bld)5 %High0-4Bon [facility] Comment on above:Performed By: #### LASHON, CDP ####[facility] [address] [place] [address] Lab Director: Ed Mcduffie DOErythrocyte distribution width (RBC) [Ratio]14.4 %Kwcdgm54.5-14.9 [facility] WilliamsburgComuniversity of mich[facility] health–west on above:Performed By: #### BMP, CDP ####[address] [address] Lab Director: Ed Mcduffie DOHematocrit (Bld) [Volume fraction]35.3 %Uxi96-70 [facility] WilliamsburgComment on above:Performed By: #### BMP, CDP ####[address] [phone] Director: Ed Mcduffie DOHemoglobin (Bld) [Mass/Vol]11.6 g/dLLow12.0-16.0 [facility] WilliamsburgComuniversity of [facility] on above:Performed By: #### BMP, CDP ####[address] [address] Lab Director: Ed Mcduffie DOLymphocytes (Bld) [#/Vol]3.20 10*3/uLNormal 1.0-4.8[facility] HospitalComuniversity of [facility] on above:Performed By: #### BMP, CDP ####[address] [address] Lab Director: Ed Mcduffie DOLymphocytes/100 WBC (Bld)42 % Xzezto56-57Ntp [facility] ClinicComment on above:Performed By: #### BMP, CDP ####[address] [address] Lab Director: Ed Mcduffie DOMCH (RBC) [Entitic mass]30.8 kwVkomeg75-86Thr Cleveland ClinicComment on above:Performed By: #### BMP, CDP ####[facility] [address] [facility], [place] [address] [phone] Director: Ed Mcduffie DOMCHC (RBC) [Mass/Vol]32.9 g/dL Qancem10-98Ifs [facility] ClinicComment on above:Performed By: #### BMP, CDP ####[address], [place] [address] [phone] Director: Ed Mcduffie DOMCV (RBC) [Entitic vol]93.5 fL Lifrcw55-953Hij Cleveland ClinicComment on above:Performed By: #### BMP, CDP ####[address], [place] [address] [phone] Director: Ed Mcduffie DOMonocytes (Bld) [#/Vol]0.70 10*3/uLNormal0.1-1.3[facility] CenterComuniversity of [facility] on above:Performed By: #### BMP, CDP ####[address], [place] [phone] Director: Ed Mcduffie DOMonocytes/100 WBC (Bld)9 %High1-7Bon SecCincinnati Shriners HospitalComuniversity of [facility] on above:Performed By: #### BMP, CDP ####[address], [place] [phone] Director: Ed Mcduffie DONeutrophil (Seg)43 %Normal 36-66[facility] CenterComun[facility] on above:Performed By: #### BMP, CDP ####[address], [place] [address] [phone] Director: Ed Mcduffie DOPlatelet mean volume (Bld) [Entitic vol]7.3 fLNormal6.0-12.0Bon SecCincinnati Shriners HospitalComment on above: Performed By: #### BMP, CDP ####[facility] [address] [place] [address] Lab Director: Ed Mcduffie DO Platelets (Bld) [#/Vol]447 10*3/bTRwsrda825-581Gbs Cleveland ClinicComment on above:Performed By: #### BMP, CDP ####[facility] [address] [facility] [place] [address] Lab Director: Ed Mcduffie DORBC (Bld) [#/Vol]3.78 10*6/uLLow4.0-5.2Bon [facility] Comment on above:Performed By: #### BMP, CDP ####[facility] [address] [facility] [place] [address] Lab Director: Ed Mcudffie DOWBC (Bld) [#/Vol]7.6 10*3/uLNormal3.5-11.0H[facility] Community HospitalComment on above:Performed By: #### BMP, CDP ####[facility] [address] [facility] [place] [address] Lab Director: Ed Mcduffie DOCT FOOT LEFT WO CONTRASTon [id number] FOOT LEFT WO CONTRASTEXAMINATION: CT OF THE [...] Signed by: Xiomara Betts MD 09/03/24 Final resultNormalMerNorwalk HospitalC-Reactive Proteinon 60-43-6540UKG High sensitivity method [Mass/Vol]24.8 mg/LHigh0.0 - 5.0 mg/LBon [facility] Interpretation and review of laboratory resultsAbnormalBon Secours St. Mary'S HospitalCRP [Mass/Vol]24.8 mg/LHigh0.0-5.0[facility] Community HospitalComment on above:Performed By: #### CRP ####[facility] [address] [place] [address] [facility] Director: Ed Mcduffie DOCKon [id number] [Catalytic activity/Vol]216 U/LHigh26 - 192 U/L [facility] WilliamsburgInterpretation and review of laboratory resultsAbnormal Bath Community HospitalCT ANKLE LEFT WO CONTRASTon [id number] ANKLE LEFT WO CONTRASTEXAMINATION: CT OF THE [...] COMPARISON: None. HISTORY ORDERING SYSTEM PROVIDED HISTORY: [facility] ankle TECHNOLOGIST PROVIDED HISTORY: Ankle-hindfoot: Reformat [...] by: Ani Trejo MD 07/26/24 Final resultNormalMercy Dayton Va Medical CenterCT FOOT LEFT WO CONTRASTon [id number] FOOT LEFT WO CONTRASTEXAMINATION: CT OF THE [...] July 13 HISTORY ORDERING SYSTEM PROVIDED HISTORY: [facility] ankle TECHNOLOGIST PROVIDED HISTORY: [facility] ankle [...] Signed by: Jason Long MD 07/26/24 Final resultNormalHarrison Community HospitalCreatine Kinaseon 94-28-6456WK [Catalytic activity/Vol]216 U/OYora44-070TvbzoHarrison Community HospitalComment on above:Performed By: #### CK, ECENZ #### [facility] [address] [place] [address] [employer] Coverer: Ed Mcduffie DOGlucose,Whole Bloodon 49-13-7696Ipvxbxa [Mass/Vol]278 mg/pAHucl92-765PgvdxHarrison Community HospitalGlucose [Mass/Vol]72 mg/tPVeqjjk56-647YmtwjHarrison Community HospitalGlucose [Mass/Vol]180 mg/eNMkfc26-658 [facility] HospitalGlucose [Mass/Vol]203 mg/dWXwdj36-593XfqxxHarrison Community HospitalPO Glucose Fingerstickon 41-99-9438Svgbsoy [Mass/Vol]278 mg/jZOcdf28 - 105 mg/dLBon Secours Mercy HealthInterpretation and review of laboratory resultsAbnormalBath Community HospitalGlucose [Mass/Vol]72 mg/dL65 - 105 mg/dLBon [facility] Glucose [Mass/Vol]180 mg/xKIobc74 - 105 mg/dLBon [facility] Interpretation and review of laboratory resultsAbnormalRiverside Doctors' Hospital Williamsburg Bon Cleveland ClinicGlucose [Mass/Vol]203 mg/qCJfye63 - 105 mg/dLBon [facility] ClinicInterpretation and review of laboratory resultsAbnormalBath Community HospitalTrop/Myoglobinon 54-93-7605Enxwxbmmyfgwef and review of laboratory resultsAbnormLewisGale Hospital AlleghanyMyoglobin [Mass/Vol]79 ng/fIOumw13 - 58 ng/mLRiverside Doctors' Hospital WilliamsburgTroponin I.cardiac High sensitivity method [Mass/Vol]23 ng/LHigh0 - 14 ng/LBon [facility] Comment on above:High Sensitivity Troponin values cannot be compared with other Troponin methodologies.[facility] WilliamsburgMyoglobin [Mass/Vol]79 ng/mLHigh 25-58[facility] CenterComment on above:Performed By: #### CKBRAD #### [facility] [address] [place] [address] [employer] C[employer]rer: Ed Mcduffie DOTroponin, High Sens23 ng/LHigh0-14[facility] on above:Result Comment: High Sensitivity Troponin values cannot be compared with other Troponin methodologies.Performed By: #### CK, ECENZ #### [facility] Lab [address] [place] [address] [employer]rer: Ed Mcduffie DOCBC with Auto Differentialon 07-25-2024 Basophils (Bld) [#/Vol]0.10 10*3/uLBon Cleveland ClinicBasophils/100 WBC (Bld)1 %0 - 2 %[facility] WilliamsburgEosinophils (Bld) [#/Vol]0.20 10*3/uLBon SecCincinnati Shriners HospitalEosinophils/100 WBC (Bld)2 %0 - 4 %[facility] Erythrocyte distribution width (RBC) [Ratio]14.0 %11.5 - 14.9 %[facility] WilliamsburgHematocrit (Bld) [Volume fraction]33.2 %Low36 - 46 %[facility] WilliamsburgHemoglobin (Bld) [Mass/Vol]10.9 g/dLLow12.0 - 16.0 g/dLBon [facility] ClinicInterpretation and review of laboratory resultsAbnormalBon Cleveland ClinicLymphocytes/100 WBC (Bld)40 %24 - 44 %[facility] Lymphocytes/100 WBC (Bld)4.10 %[facility] Hospital [facility] The King's DaughtersH (RBC) [Entitic mass] 31.3 pg26 - 34 pgBon [facility] HospitalHC (RBC) [Mass/Vol]32.7 g/dL31 - 37 g/dLBon [facility] Mansfield HospitalV (RBC) [Entitic vol]95.7 fL80 - 100 fLRiverside Doctors' Hospital WilliamsburgMonocytes/100 WBC (Bld)7 %1 - 7 %[facility] Monocytes/100 WBC (Bld)0.70 %[facility] WilliamsburgNeutrophils/100 WBC (Bld)50 %36 - 66 %[facility] WilliamsburgPlatelet mean volume (Bld) [Entitic vol]7.0 fL 6.0 - 12.0 fLBon SecHardtner Medical Center HealthPlatelets (Bld) [#/Vol]460 10*3/uLHighBon SecCincinnati Shriners HospitalRBC (Bld) [#/Vol]3.46 10*6/uLLow4.0 - 5.2 m/uLBon Cleveland ClinicSegmented neutrophils/100 WBC (Bld)5.10 %[facility] WilliamsburgWBC other (Bld) [#/Vol]10.2Bon SecAspirus Riverview Hospital and ClinicsCBC with Diffon 97-65-0601Tfn. Basophil0.10 k/uLNormal0.0-0.2[facility] Comment on above:Performed By: #### CDP, CP ####[facility] [address] [facility].[place], [place] [phone] Director: Ed Mcduffie DOAbs.Neutrophil (Seg)5.10 k/uLNormal1.3-9.1[facility] CenterComment on above:Performed By: #### CDP, CP ####[facility] [address] [facility].[place], [place] [phone] Director: Ed Mcduffie DOBasophils/100 WBC (Bld)1 %Normal0-2[facility] CenterComment on above:Performed By: #### CDP, CP ####[address], [place] [phone] Director: Ed Mcduffie DOEosinophils (Bld) [#/Vol]0.20 10*3/uLNormal0.0-0.4MerAdams County Regional Medical CenterComment on above:Performed By: #### CDP, CP ####[address], [place] [phone] Director: Ed Mcduffie DOEosinophils/100 WBC (Bld)2 %Normal0-4H[facility] Community HospitalComment on above:Performed By: #### CDP, CP ####[facility] [address] [place] [address].[place], [place] [phone] Director: Ed Mcduffie DOErythrocyte distribution width (RBC) [Ratio]14.0 %Normal 11.5-14.9H[facility] Community HospitalComment on above:Performed By: #### CDP, CP ####[address] [phone] Director: Ed Mcduffie DOHematocrit (Bld) [Volume fraction]33.2 %Qss32-29ViozcAdams County Regional Medical CenterComment on above:Performed By: #### CDP, CP ####[facility] [address] [place], [place] [phone] Director: Ed Mcduffie DOHemoglobin (Bld) [Mass/Vol]10.9 g/dLLow12.0-16.0[facility] HospitalComuniversity of [facility] on above: Performed By: #### CDP, CP ####[facility] [address] [place] [address] [phone] Director: Ed Mcduffie DOLymphocytes (Bld) [#/Vol]4.10 10*3/uLNormal1.0-4.8[facility] HospitalComuniversity of [facility] on above:Performed By: #### CDP, CP ####[address] [phone] Director: Ed Mcduffie DO Lymphocytes/100 WBC (Bld)40 %Rkjtkm63-51WzbxgHarrison Community HospitalComuniversity of mich[facility] health–[facility] on above:Performed By: #### CDP, CP ####[address] [phone] Director: Ed Mcduffie DOMCH (RBC) [Entitic mass]31.3 ueWhriif50-73XdxvfAdams County Regional Medical CenterComuniversity of [facility] on above:Performed By: #### CDP, CP ####[facility] [address] [place] [address] [phone] Director: Ed Mcduffie DOMCHC (RBC) [Mass/Vol]32.7 g/iEBhwynp00-28OqovfHarrison Community HospitalComuniversity of mich[facility] on above: Performed By: #### CDP, CP ####[facility] [address] [place] [address] [phone] Director: Ed Mcduffie DOMCV (RBC) [Entitic vol]95.7 qDBbiagt28-776EihqaHarrison Community HospitalComuniversity of mich[facility] on above: Performed By: #### CDP, CP ####[facility] [address] [facility].[place], [place] [phone] Director: Ed Mcduffie DOMonocytes (Bld) [#/Vol]0.70 10*3/uLNormal0.1-1.3[facility] CenterComun[facility] on above:Performed By: #### CDP, CP ####[facility] [address] [facility].[place], [place] [phone] Director: Ed Mcduffie DO Monocytes/100 WBC (Bld)7 %Normal1-7[facility] HospitalComuniversity of [facility] on above: Performed By: #### CDP, CP ####[address], [place] [phone] Director: Ed Mcduffie DONeutrophil (Seg)50 %Zjdskn49-04LvalhHarrison Community HospitalComuniversity of mich[facility] health–[facility] on above:Performed By: #### CDP, CP ####[place] [address] [facility].[place], [place] [phone] Director: Ed Mcduffie DOPlatelet mean volume (Bld) [Entitic vol]7.0 fLNormal6.0-12.0[facility] HospitalComun[facility] of [facility] on above:Performed By: #### CDP, CP ####[facility] [address] [facility].[place], [place] [phone] Director: Ed Mcduffie DO Platelets (Bld) [#/Vol]460 10*3/oODiiw759-487OyrrzHarrison Community HospitalComuniversity of [facility] on above:Performed By: #### CDP, CP ####[facility] [address] [place] [address].[place], [place] [phone] Director: Ed Mcduffie DORBC (Bld) [#/Vol]3.46 10*6/uLLow4.0-5.2MOhioHealth Pickerington Methodist Hospital Comment on above:Performed By: #### CDP, CP ####[facility] [address], [place] [phone] Director: Ed Mcduffie DOWBC (Bld) [#/Vol]10.2 10*3/uLNormal3.5-11.0[facility] Community HospitalComment on above:Performed By: #### CDP, CP ####[facility] [address], [place] [phone] Director: Ed Mcduffie DOComp Metabolic Profon 84-78-6584Pcbqkfe [Mass/Vol]4.0 g/dL Normal3.5-5.2MOhioHealth Pickerington Methodist HospitalComment on above:Performed By: #### CHIRAG, ECENZ #### [facility] Lab [address] [facility] [place] [address] [employer] Coverer: Ed Mcduffie DOAlkaline Phos62 U/TBpohkf74-853VumznHarrison Community HospitalComment on above:Performed By: #### CHIRAG, ECENZ #### [facility] [address] [facility] [place] [address] [employer] Coverer: Ed Mcduffie DOALT [Catalytic activity/Vol]12 U/UKdzysy51-41 [facility] HospitalComment on above:Performed By: #### CHIRAG, ECENZ #### [facility] [address] [facility] [place] [address] [employer] C[employer]rer: Ed Mcduffie DOAnion gap [Moles/Vol]13 mmol/LNormal9-16[facility] HospitalComuniversity of mich[facility] on above:Performed By: #### CK, ECENZ #### [facility] Lab [address] [facility] [place] [address] [employer]overer: Fanelly, Ed, DOAST [Catalytic activity/Vol]19 U/WDthyew79-39 [facility] Community HospitalComment on above:Performed By: #### CHIRAG, ECENZ #### [facility] Lab [address] [place] [address] [employer]rer: Ed Mcduffie DOBilirubin [Mass/Vol]mg/dLNormal0.0-1.2MOhioHealth Pickerington Methodist HospitalComment on above:Performed By: #### CHIRAG, ECENZ #### [facility] Lab [address] [place] [address] [employer]rer: Ed Mcduffie DOCalcium [Mass/Vol]9.4 mg/dLNormal8.6-10.4 [facility] HospitalComuniversity of [facility] on above:Performed By: #### CHIRAG, ECENZ #### [facility] Lab [address] [place] [address] [employer]rer: Ed Mcduffie DOChloride [Moles/Vol]99 mmol/GMkqpaq62-250 [facility] HospitalComuniversity of [facility] on above:Performed By: #### CHIRAG, ECENZ #### [facility] Lab [address] [place] [address] [employer]rer: Ed Mcduffie DOCO2 [Moles/Vol]23 mmol/ITtfawm73-93JuemsHarrison Community HospitalComuniversity of mich[facility] on above:Performed By: #### CHIRAG, ECENZ #### [facility] Lab [address] [place] [address] [employer]rer: Ed Mcduffie DOCreatinine [Mass/Vol]1.2 mg/dLNormal0.7-1.2 [facility] HospitalComuniversity of [facility] on above:Performed By: #### CHIRAG, ECENZ #### [facility] Lab [address] [place] [address] [employer]rer: Ed Mcduffie, DOGFR/1.73 sq M.predicted among non-blacks MDRD (S/P/Bld) [Vol rate/Area]55 mL/min/{1.73_m2}Low>60[facility] Comment on above:Result Comment: These results [...] tubular secretion.Performed By: #### CK, ECENZ #### [facility] Lab [address] [place] [address] [employer]rer: Ed Mcduffie DOGlucose [Mass/Vol]191 mg/jIVziz00-31AmkgrOhioHealth Pickerington Methodist HospitalComment on above:Performed By: #### CHIRAG, ECENZ #### [facility] Lab [address] [place] [address]. [place] [address] [employer]rer: Ed Mcduffie DOPotassium [Moles/Vol]4.6 mmol/LNormal3.7-5.3 [facility] HospitalComuniversity of [facility] on above:Performed By: #### CHIRAG, ECENZ #### [facility] Lab [address] [place] [address] [employer]rer: Ed Mcduffie DOProtein [Mass/Vol]7.1 g/dLNormal6.6-8.7H[facility] HospitalComuniversity of [facility] on above:Performed By: #### CHIRAG, ECENZ #### [facility] Lab [address] [place] [address] [employer]rer: Ed Mcduffie DOSodium [Moles/Vol]135 mmol/GPjf593-728WlnxgHarrison Community HospitalComment on above:Performed By: #### CK, ECENZ #### [facility] Lab [address] [place] [address] [employer]overer: Ed Mcduffie DOUrea nitrogen [Mass/Vol]38 mg/dLHigh6-20[facility] CenterComment on above:Performed By: #### BRAD BEARD #### [facility] Lab [address] [place] [address] [employer] Coverer: Ed Mcduffie DOComprehensive Metabolic Panelon 07-25-2024 Albumin [Mass/Vol]4.0 g/dL3.5 - 5.2 g/dLBon [facility] ClinicALP [Catalytic activity/Vol]62 U/L35 - 104 U/LBon [facility] ClinicALT [Catalytic activity/Vol]12 U/L10 - 35 U/LBon [facility] ClinicAnion gap [Moles/Vol]13 mmol/L9 - 16 mmol/LBon [facility] HealthAST [Catalytic activity/Vol]19 U/L10 - 35 U/LBon [facility] ClinicBilirubin [Mass/Vol]mg/dL0.0 - 1.2 mg/dLBon [facility] ClinicCalcium [Mass/Vol]9.4 mg/dL8.6 - 10.4 mg/dLBon [facility] ClinicChloride [Moles/Vol]99 mmol/L98 - 107 mmol/LBon [facility] ClinicCO2 [Moles/Vol]23 mmol/L20 - 31 mmol/LBon [facility] ClinicCreatinine [Mass/Vol] 1.2 mg/dL0.7 - 1.2 mg/dLBon [facility] HealthEst, Glom Filt Iwcv35Wqq- PINF Bon [facility] ClinicComuniversity of [facility] on above: These results are not intended [...] that affects renal tubular secretion. Glucose [Mass/Vol]191 mg/dWBhzk67 - 99 mg/dLBon [facility] Interpretation and review of laboratory resultsAbnormalBon [facility] Potassium [Moles/Vol]4.6 mmol/L3.7 - 5.3 mmol/LBon [facility] ClinicProtein [Mass/Vol]7.1 g/dL6.6 - 8.7 g/dLBon [facility] ClinicSodium [Moles/Vol]135 mmol/QEad280 - 145 mmol/LBon [facility] ClinicUrea nitrogen [Mass/Vol]38 mg/dLHigh6 - 20 mg/dLBon [facility] Glucose,Whole Bloodon 84-42-7357Yufmajs [Mass/Vol]180 mg/vPIoaj45-157WnfwsHarrison Community HospitalGlucose [Mass/Vol]154 mg/xZIayn41-711PotfoHarrison Community Hospital Glucose [Mass/Vol]138 mg/vHZshv12-538AapjiHarrison Community HospitalGlucose [Mass/Vol]205 mg/hCZmrb21-090AbcgfHarrison Community HospitalPO Glucose Fingerstickon 95-09-1952Pyfwota [Mass/Vol]180 mg/xUUcxc34 - 105 mg/dLBon [facility] Interpretation and review of laboratory resultsAbnormInova Alexandria HospitalGlucose [Mass/Vol]154 mg/dCYagc96 - 105 mg/dLBon [facility] ClinicInterpretation and review of laboratory resultsAbnormRappahannock General HospitalGlucose [Mass/Vol]138 mg/eYXjha49 - 105 mg/dLBon [facility] ClinicInterpretation and review of laboratory results AbnormalBon [facility] CenterGlucose [Mass/Vol]205 mg/ySRseg11 - 105 mg/dLBon [facility] ClinicInterpretation and review of laboratory resultsAbnormalBath Community HospitalCBC with Auto Differentialon 21-04-5852Beoxhpspl (Bld) [#/Vol]0.10 10*3/[facility] HospitalInterpretation and review of laboratory resultsAbnormLewisGale Hospital AlleghanyLymphocytes/100 WBC (Bld)1.90 %[facility] Monocytes/100 WBC (Bld)1.10 %[facility] WilliamsburgNeutrophils/100 WBC (Bld)79 %High36 - 66 %Bon [facility] ClinicSegmented neutrophils/100 WBC (Bld)11.30 %HighBon Cleveland ClinicWBC other (Bld) [#/Vol]14.4HighBon Cleveland ClinicBon Cleveland ClinicCBC with Diffon 87-36-0249Xtbuvvnja/100 WBC (Bld)1 %Normal0-2Bon [facility] ClinicComment on above:Performed By: #### CMPX, CDP ####[facility] [address] [place], [place] [address] Lab Director: Ed Mcduffie DOEosinophils (Bld) [#/Vol]0.00 10*3/uLNormal0.0-0.4Bon [facility] on above:Performed By: #### CMPX, CDP ####[address] [address] Lab Director: Ed Mcduffie DOEosinophils/100 WBC (Bld)0 %Normal0-4Bon [facility] on above:Performed By: #### CMPX, CDP ####[address] [address] Lab Director: Ed Mcduffie DOErythrocyte distribution width (RBC) [Ratio]14.0 %Wdfezx45.5-14.9Bon [facility] on above:Performed By: #### CMPX, CDP ####[address] [place] [address] Lab Director: Ed Mcduffie DO Hematocrit (Bld) [Volume fraction]33.0 %Yqn38-30Ayl [facility] ClinicComment on above:Performed By: #### CMPX, CDP ####[address] [address] Lab Director: Ed Mcduffie DOHemoglobin (Bld) [Mass/Vol]10.8 g/dLLow12.0-16.0Bon [facility] on above:Performed By: #### CMPX, CDP ####[facility] [address] [facility], [place] [phone] Director: Ed Mcduffie DOLymphocytes/100 WBC (Bld)13 %Hde98-89Nfs [facility] on above:Performed By: #### CMPX, CDP ####[facility] [address] [place] [address] [phone] Director: Ed Mcduffie DOMCH (RBC) [Entitic mass]31.3 wuLogxpp66-63Jxg [facility] ClinicComment on above:Performed By: #### CMPX, CDP ####[facility] [address] [facility].[place], [place] [phone] Director: Ed Mcduffie DOMCHC (RBC) [Mass/Vol]32.7 g/zAPzqkyy22-83Xts [facility] Comment on above:Performed By: #### CMPX, CDP ####[facility] [address] [place] [address] [phone] Director: Ed Mcduffie DOMCV (RBC) [Entitic vol]95.8 iEPzpjcd07-851Aib [facility] Comment on above:Performed By: #### CMPX, CDP ####[facility] [address] [place] [address] [phone] Director: Ed Mcduffie DOMonocytes/100 WBC (Bld)7 %Normal1-7Bon [facility] on above:Performed By: #### CMPX, CDP ####[facility] [address] [place] [address] [phone] Director: Ed Mcduffie DOPlatelet mean volume (Bld) [Entitic vol]7.8 fLNormal6.0-12.0Bon [facility] ClinicComuniversity of [facility] on above:Performed By: #### CMPX, CDP ####[facility] [address] [facility].[place], [place] [phone] Director: Ed Mcduffie DOPlatelets (Bld) [#/Vol]473 10*3/kCDatv876-434Drc [facility] on above:Performed By: #### CMPX, CDP ####[address], [place] [phone] Director: Ed Mcduffie DORBC (Bld) [#/Vol]3.45 10*6/uLLow4.0-5.2Bon [facility] on above:Performed By: #### CMPX, CDP ####[address], [place] [phone] Director: Ed Mcduffie DOAbs. Basophil0.10 k/uLNormal0.0-0.2[facility] CenterComuniversity of [facility] on above:Performed By: #### CMPX, CDP ####[address], [place] [phone] Director: Ed Mcduffie DOAbs.Neutrophil (Seg)11.30 k/uLHigh1.3-9.1[facility] CenterComuniversity of [facility] on above:Performed By: #### CMPX, CDP ####[facility] [address] [place] [address].[place], [place] [phone] Director: Ed Mcduffie DOLymphocytes (Bld) [#/Vol]1.90 10*3/uLNormal 1.0-4.8[facility] CenterComuniversity of [facility] on above:Performed By: #### CMPX, CDP ####[facility] [address] [facility].[place], [place] [address] Lab Director: Ed Mcduffie DOMonocytes (Bld) [#/Vol]1.10 10*3/uLNormal0.1-1.3MercFayette County Memorial HospitalComment on above:Performed By: #### CMPX, CDP ####[facility] [address] [facility].[place], [place] [phone] Director: Ed Mcduffie DONeutrophil (Seg)79 % Jaad64-54AhdgjAdams County Regional Medical CenterComment on above:Performed By: #### CMPX, CDP ####[facility] [address] [facility].[place], [place] [phone] Director: Ed Mcduffie DOWBC (Bld) [#/Vol]14.4 10*3/uL High3.5-11.0H[facility] Community HospitalComment on above:Performed By: #### CMPX, CDP ####[place] [address] [facility].[place], [place] [phone] Director: Ed Mcduffie DOComp Metabolic Pr/rfx MGon 11-21-9263Excudrq [Mass/Vol]3.9 g/dLNormal3.5-5.2MOhioHealth Pickerington Methodist Hospital Comment on above:Performed By: #### CMPX, CDP ####[facility] [address] [facility].[place], [place] [phone] Director: Ed Mcduffie DOAlkaline Phos60 U/VEwowgb44-485GprwrHarrison Community HospitalComment on above:Performed By: #### CMPX, CDP ####[facility] [address] [facility] [place] [address] Lab Director: Ed Mcduffie DOALT [Catalytic activity/Vol]18 U/NAnpgsm35-30NkmroAdams County Regional Medical CenterComment on above:Performed By: #### CMPX, CDP ####[facility] [address] [place] [address] Lab Director: Ed Mcduffie DOAST [Catalytic activity/Vol]32 U/VOrcatt77-36KzzotAdams County Regional Medical CenterComuniversity of michigan health–west on above:Result Comment: SPECIMEN SLIGHTLY HEMOLYZED, RESULTS MAY BE ADVERSELY AFFECTED.Performed By: #### CMPX, CDP ####[facility] Xss[address]6 [place] [address] Lab Director: Ed Mcduffie DOPotassium [Moles/Vol]5.3 mmol/LNormal3.7-5.3MercFayette County Memorial HospitalComuniversity of michigan health–west on above:Result Comment: SPECIMEN SLIGHTLY HEMOLYZED, RESULTS MAY BE ADVERSELY AFFECTED.Performed By: #### CMPX, CDP ####[address] [address] Lab Director: Ed Mcduffie DOAnion gap [Moles/Vol]12 mmol/LNormal9-16MerAdams County Regional Medical CenterComment on above:Performed By: #### CMPX, CDP ####[facility] [address] [place] [address] Lab Director: Ed Mcduffie DOBilirubin [Mass/Vol]mg/dL Normal0.0-1.2MercFayette County Memorial HospitalComuniversity of mich[facility] health–[facility] on above:Performed By: #### CMPX, CDP ####[facility] [address] [place] [address] Lab Director: Ed Mcduffie DOCalcium [Mass/Vol]9.0 mg/dL Normal8.6-10.4MerAdams County Regional Medical CenterComuniversity of michigan health–west on above:Performed By: #### CMPX, CDP ####[facility] [address] [place] [address] [phone] Director: Ed Mcduffie DOChloride [Moles/Vol]103 mmol/CIvjkcj45-903EiiviHarrison Community HospitalComment on above:Performed By: #### CMPX, CDP ####[facility] Qsp[address] [facility].[place], [place] [phone] Director: Ed Mcduffie DOCO2 [Moles/Vol]21 mmol/L Bwjofm69-77RegoqHarrison Community HospitalComuniversity of michigan health–west on above:Performed By: #### CMPX, CDP ####[facility] Iov[address] [facility].[place], [place] [phone] Director: Ed Mcduffie DOCreatinine [Mass/Vol]1.1 mg/dLNormal0.7-1.2MOhioHealth Pickerington Methodist HospitalComuniversity of [facility] on above:Performed By: #### CMPX, CDP ####[address], [place] [phone] Director: Ed Mcduffie DOGFR/1.73 sq M.predicted among non-blacks MDRD (S/P/Bld) [Vol rate/Area]61 mL/min/{1.73_m2}Normal>60Harrison Community HospitalComuniversity of michigan health–west on above:Result Comment: These results are not [...] renal tubular secretion.Performed By: #### CMPX, CDP ####[facility] Ggs[address]17 [facility].[place], [place] [phone] Director: Ed Mcduffie DOGlucose [Mass/Vol]144 mg/dL Pazw96-14Foobu [facility] CenterComuniversity of [facility] on above:Performed By: #### CMPX, CDP ####[facility] Peu[address] [place], [place] [address] Lab Director: Ed Mcduffie DOProtein [Mass/Vol]6.9 g/dL Normal6.6-8.7Harrison Community HospitalComuniversity of mich[facility] health–west on above:Performed By: #### CMPX, CDP ####[facility] Gvw8124 [place], [place] [address] Lab Director: Ed Mcduffie, DOSodium [Moles/Vol]136 mmol/L Qwuxcy139-954NgemyAdams County Regional Medical CenterComment on above:Performed By: #### CMPX, CDP ####[facility] Eul[address]41 [place], [place] [address] Lab Director: Ed Mcduffie DOUrea nitrogen [Mass/Vol]27 mg/dLHigh6-20MerAdams County Regional Medical CenterComment on above:Performed By: #### CMPX, CDP ####[facility] Gph6700 [place], [place] [address] Lab Director: Ed Mcduffie DOComprehensive Metabolic Panel w/ Reflex to MGon 86-03-0852Woyyxla [Mass/Vol]3.9 g/dL3.5 - 5.2 g/dLBon Secours Corey Hospitaly HealthALP [Catalytic activity/Vol]60 U/L35 - 104 U/LBon Secours Mercy HealthALT [Catalytic activity/Vol]18 U/L10 - 35 U/LBon Secours Mercy HealthAnion gap [Moles/Vol]12 mmol/L9 - 16 mmol/LBon Secours Mercy HealthAST [Catalytic activity/Vol]32 U/L10 - 35 U/LBon Secours Corey Hospitaly HealthComment on above:SPECIMEN SLIGHTLY HEMOLYZED, RESULTS MAY BE ADVERSELY AFFECTED.Bilirubin [Mass/Vol]mg/dL 0.0 - 1.2 mg/dLBon Secours Mercy HealthCalcium [Mass/Vol]9.0 mg/dL8.6 - 10.4 mg/dLBon Secours Mercy HealthChloride [Moles/Vol]103 mmol/L98 - 107 mmol/LBon [facility] ClinicCO2 [Moles/Vol]21 mmol/L20 - 31 mmol/LBon [facility] ClinicCreatinine [Mass/Vol]1.1 mg/dL0.7 - 1.2 mg/dLBon [facility] ClinicJarocho Sánchez Rate61- PINFBon [facility] on above: These results are not [...] that affects renal tubular secretion. Glucose [Mass/Vol]144 mg/sUXwea15 - 99 mg/dLBon [facility] Interpretation and review of laboratory resultsAbnormalRiverside Doctors' Hospital [facility]burg Potassium [Moles/Vol]5.3 mmol/L3.7 - 5.3 mmol/LBon Toledo Hospitalment on above:SPECIMEN SLIGHTLY HEMOLYZED, RESULTS MAY BE ADVERSELY AFFECTED.Protein [Mass/Vol]6.9 g/dL6.6 - 8.7 g/dLBon [facility] ClinicSodium [Moles/Vol]136 mmol/L136 - 145 mmol/LBon [facility] ClinicUrea nitrogen [Mass/Vol]27 mg/dL High6 - 20 mg/dLBon [facility] Healthcare CenterGlucose,Whole Bloodon 17-38-7744Zhkdoug [Mass/Vol]150 mg/nREwch56-510Nwowq [facility] CenterGlucose [Mass/Vol]250 mg/lSTxzn00-929AhtdsAdams County Regional Medical CenterGlucose [Mass/Vol]224 mg/oZYkbn04-138ErxwbHarrison Community HospitalGlucose [Mass/Vol]385 mg/fTUkvj97-686BoyipHarrison Community HospitalHemoglobin A1Con 00-12-4188Afqsgdk glucose Estimated from glycated hemoglobin (Bld) [Mass/Vol]206 mg/dLBon [facility] on above:The ADA and AACC recommend providing the estimated average glucose result to permit better patient understanding of their HBA1c result. HbA1c (Bld) [Mass fraction]8.8 %High4.0 - 6.0 %[facility] Interpretation and review of laboratory resultsAbnoDe Smet Memorial HospitalGlucose [Mass/Vol]206 mg/dLNoOhio Valley HospitalComuniversity of michigan health–west on above:Result Comment: The ADA and AACC recommend providing the estimated average glucose result to permit better patient understanding of their HBA1c result.Performed By: #### CK, ECENZ #### [facility] Lab [address] [facility] [place] [address] [employer] Coverer: Ed Mcduffie DOHbA1c (Bld) [Mass fraction]8.8 %High4.0-6.0 Harrison Community HospitalComuniversity of mich[facility] health–west on above:Performed By: #### CK, ECENZ #### [facility] Lab [address] [facility] [place] [address] [employer] Coverer: Ed Mcduffie DONo Panel Informationon 78-25-8077Tbf [facility] Glucose Fingerstickon 95-66-5794Nwphubr [Mass/Vol]150 mg/dLHigh 65 - 105 mg/dLBon [facility] ClinicInterpretation and review of laboratory resultsAbnormRappahannock General HospitalGlucose [Mass/Vol]250 mg/rGKwkw30 - 105 mg/dLBon [facility] ClinicInterpretation and review of laboratory resultsAbnormRappahannock General HospitalGlucose [Mass/Vol]224 mg/aNBqwv32 - 105 mg/dLBon [facility] Interpretation and review of laboratory resultsAbnormInova Alexandria HospitalGlucose [Mass/Vol]385 mg/lSJdef21 - 105 mg/dLBon [facility] ClinicInterpretation and review of laboratory resultsAbnoSpearfish Regional HospitalPrealbuminon 29-72-3201Wepxnslqnc [Mass/Vol] 27.5 mg/dL20.0 - 40.0 mg/dLBon Cleveland ClinicPrealbumin [Mass/Vol]27.5 mg/sPOxrcay94.0-40.0Harrison Community HospitalComment on above:Performed By: #### CHIRAG, ECENZ #### [facility] Lab [address] [facility] [place] [address] [employer] Coverer: Ed Mcduffie DOSedimentation Rateon 97-06-3912QUF Photometric method (Bld) [Velocity]25Bath Community HospitalSedimentation Rate25 mm/HrNormal0-30Harrison Community HospitalComment on above:Performed By: #### CK, ECENZ #### [facility] Lab [address] [facility] [place] [address] [employer] Coverer: Ed Mcduffie DOVitamin D 25 Hydroxyon 65-77-703097- hydroxyvitamin D3 [Mass/Vol]ng/mLLow30.0 - 100.0 ng/mLRiverside Doctors' Hospital [place] Comment on above: Reference Range: Vitamin D status Range Deficiency <20 ng/mL Mild Deficiency 20-30 ng/mL Sufficiency 30-100 ng/mL Toxicity >100 ng/mL Interpretation and review of laboratory resultsAbnoCarilion Roanoke Community Hospital Vitamin D 25 OHon 91-19-6646Vmplhzw D 25 OH<6.0Low30.0-100.0Harrison Community HospitalComment on above:Result Comment: Reference Range: Vitamin D status Range Deficiency <20 ng/mL Mild Deficiency 20-30 ng/mL Sufficiency 30-100 ng/mL Toxicity >100 ng/mLPerformed By: #### CHIRAG, ECENZ #### [facility] [address] [place] [address] [employer] Coverer: Ed Mcduffie DOFLUORO FOR SURGICAL PROCEDURESon 07-23-2024 FLUORO FOR SURGICAL PROCEDURESRadiology exam is complete. No Radiologist dictation. Please follow up with ordering provider. Final resultNormalHarrison Community HospitalGlucose,Whole Bloodon 07-23-2024 Glucose [Mass/Vol]408 mg/dLCritically reob02-518ZrzoeHarrison Community Hospital Comment on above:Result Comment: Critical NotedGlucose [Mass/Vol]284 mg/dLHigh 65-105Mercy [facility] Va Medical CenterGlucose [Mass/Vol]188 mg/mWGitv59-786Ykacz [facility] Medical CenterGuidance-- during surgeryon 59-97-2280Wuqxinxhw exam is complete. No Radiologist dictation. Please follow up with ordering provider. [facility] CONSOLIDATEDK (Potassium)on 83-55-6181Swosuvjvh [Moles/Vol]5.5 mmol/L High3.7-5.3Mercy [facility] Medical CenterComment on above:Performed By: #### K ####[facility] [address] [place] [address] [facility] Director: Ed Mcduffie DONo Panel Informationon 07-23-2024 Postoperative left leg, ankle and foot radiographs. [facility] CONSOLIDATEDEXAMINATION: THREE XRAY VIEWS OF THE [...] surrounds the lower leg, ankle and foot. [facility] Carlos Shirley MD - 07/23/2024 EXAMINATION: [...] Postoperative left leg, ankle and foot radiographs. [facility] WilliamsburgNo Panel InformationOrdered By: Carlos Orta on 39-25-3797Ogj [facility] Work Phone: POC Glucose Fingerstickon 12-94-0364Fdatcfm [Mass/Vol] 408 mg/dLCritically high65 - 105 mg/dLBon [facility] ClinicComment on above: Critical NotedInterpretation and review of laboratory resultsAbnormalBath Community HospitalGlucose [Mass/Vol]284 mg/aNBfem31 - 105 mg/dLBon [facility] ClinicInterpretation and review of laboratory results AbnormalBon [facility] Healthcare CenterGlucose [Mass/Vol]188 mg/dDVgsm48 - 105 mg/dLBon [facility] ClinicInterpretation and review of laboratory resultsAbnormalBon [facility] Potassiumon 85-28-7287Mxefdhgwvpubus and review of laboratory resultsAbCarilion Roanoke Community HospitalPotassium [Moles/Vol]5.5 mmol/LHigh3.7 - 5.3 mmol/LBon [facility] CenterXR ANKLE LEFT (MIN 3 VIEWS)on 91-29-7246DI ANKLE LEFT (MIN 3 VIEWS)EXAMINATION: THREE XRAY [...] Signed by: Carlos Orta MD 07/23/24 Final resultNoOhio Valley HospitalXR Ankle - left 3 Viewson 07-23-2024 Radiology Study observation (narrative)[facility] WilliamsburgXR FOOT LEFT (MIN 3 VIEWS)on 83-08-7110CM FOOT LEFT (MIN 3 VIEWS)EXAMINATION: THREE XRAY [...] Signed by: Carlos Orta MD 07/23/24 Final resultNoOhio Valley HospitalXR Foot - left 3 Viewson 07-23-2024 Radiology Study observation (narrative)[facility] Hospital WilliamsburgXR TIBIA FIBULA LEFT (2 VIEWS)on 78-41-5725TD TIBIA FIBULA LEFT (2 VIEWS)EXAMINATION: THREE XRAY [...] Signed by: Carlos Orta MD 07/23/24 Final resultNormalHarrison Community HospitalXR Tibia and Fibula - left 2 Viewson 48-48-0690Wjumijdqi Study observation (narrative)[facility] [employer] City HospitalBasic Metabolic Panelon 86-18-8552Zaleu gap [Moles/Vol]13 mmol/L9 - 16 mmol/LBon [facility] HealthAster DM Healthcare City HospitalCalcium [Mass/Vol]9.6 mg/dL8.6 - 10.4 mg/dLBon [facility] HealthAster DM Healthcare City HospitalChloride [Moles/Vol]101 mmol/L98 - 107 mmol/LBon [facility] HealthAster DM Healthcare City HospitalCO2 [Moles/Vol]21 mmol/L20 - 31 mmol/LBon [facility] HealthAster DM Healthcare City HospitalCreatinine [Mass/Vol] 1.1 mg/dLHigh0.50 - 0.90 mg/dLBon [facility] HealthPVC RecyclingEst, Glom Filt Rate64- PINFBon [facility] Behavioral HealthSolar Titan Corey HospitalAmerican Hometown Media City HospitalComment on above: These results are not [...] that affects renal tubular secretion. Glucose [Mass/Vol]365 mg/qUTtjm08 - 99 mg/dLBon [facility] HealthPVC Recycling Interpretation and review of laboratory resultsAbnormalWarren Memorial HospitalSolar Titan [facility] SepSensor Potassium [Moles/Vol]5.8 mmol/LHigh3.7 - 5.3 mmol/LBon [facility] HealthPVC Recycling Sodium [Moles/Vol]135 mmol/YLza043 - 145 mmol/LBon [facility] HealthPVC RecyclingUrea nitrogen [Mass/Vol]30 mg/dLHigh6 - 20 mg/dLBon [facility] Healthcare CenterBasic Metabolic Profon 72-20-3197Czudy gap [Moles/Vol]13 mmol/L Normal9-16Harrison Community HospitalComment on above:Performed By: #### BMP ####[facility] [place] [address] Lab Director: Melvin Santoyo MD#### CDP ####[facility] [address]sc[address] [place], [place] [phone] Director: Ed Mcduffie DOCalcium [Mass/Vol]9.6 mg/dLNormal8.6-10.4Harrison Community HospitalComment on above: Performed By: #### BMP ####[address] [place], [place] [phone] Director: Melvin Santoyo MD#### CDP ####[facility] Exj[address] [place], [place] [phone] Director: Ed Mcduffie DOChloride [Moles/Vol]101 mmol/ENszdim69-479YnzawHarrison Community HospitalComment on above:Performed By: #### BMP ####[address] [place], [place] [phone] Director: Melvin Santoyo MD#### CDP ####[address] [place], [place] [address] Lab Director: Ed Mcduffie DOCO2 [Moles/Vol]21 mmol/L Yypldf21-98UxiimAdams County Regional Medical CenterComuniversity of michigan health–west on above:Performed By: #### BMP ####[facility] [place], [place] [phone] Director: Melvin Santoyo MD#### CDP ####[facility] [address] [place] [address] [phone] Director: Ed Mcduffie DOCreatinine [Mass/Vol]1.1 mg/dLHigh0.50-0.90H[facility] Community HospitalComuniversity of michigan health–west on above: Performed By: #### BMP ####[address] [phone] Director: Melvin Santoyo MD#### CDP ####[address] [phone] Director: Ed Mcduffie, DOGFR/1.73 sq M.predicted among non-blacks MDRD (S/P/Bld) [Vol rate/Area]64 mL/min/{1.73_m2}Normal>60MerAdams County Regional Medical CenterComment on above:Result Comment: These results [...] affects renal tubular secretion.Performed By: #### BMP ####[address] [phone] Director: Melvin Santoyo MD#### CDP ####[address] [phone] Director: Ed Mcduffie, DOGlucose [Mass/Vol]365 mg/dTSgjs05-89Difhm [facility] Medical CenterComment on above:Performed By: #### BMP ####[address] [phone] Director: Melvin Santoyo MD#### CDP ####[address] [phone] Director: Ed Mcduffie DOPotassium [Moles/Vol]5.8 mmol/LHigh3.7-5.3Mercy [facility] Medical CenterComuniversity of mich[facility] health–west on above:Performed By: #### BMP ####[address] [address] Lab Director: Melvin Santoyo MD#### CDP ####[facility] Ihv[address] [place], [place] [address] Lab Director: Ed Mcduffie DOSodium [Moles/Vol]135 mmol/L Zhb772-132YkxxqHarrison Community HospitalComment on above:Performed By: #### BMP ####[facility] [address] [place] [address] Lab Director: Melvin Santoyo MD#### CDP ####[facility] [address]135 [place] [address] Lab Director: Ed Mcduffie DOUrea nitrogen [Mass/Vol]30 mg/dLHigh6-20Harrison Community HospitalComment on above: Performed By: #### BMP ####[facility] Hrlqsa[address]maym[address] [place] [address] Lab Director: Melvin Santoyo MD#### CDP ####[facility] Sqh2796 [place] [address] Lab Director: Ed Mcduffie DOCBC with Auto Differentialon 92-74-4171Ekylytlmp (Bld) [#/Vol]0.10 10*3/uLBon Cleveland ClinicBasophils/100 WBC (Bld)1 %0 - 2 %[facility] WilliamsburgEosinophils (Bld) [#/Vol]0.40 10*3/uLBon Cleveland ClinicEosinophils/100 WBC (Bld)6 %High0 - 4 %[facility] WilliamsburgErythrocyte distribution width (RBC) [Ratio]14.2 %11.5 - 14.9 %[facility] Hematocrit (Bld) [Volume fraction]36.3 %36 - 46 %[facility] Hemoglobin (Bld) [Mass/Vol]12.2 g/dL12.0 - 16.0 g/dLBon [facility] Interpretation and review of laboratory resultsAbnormalRiverside Doctors' Hospital Williamsburg Lymphocytes/100 WBC (Bld)36 %24 - 44 %[facility] WilliamsburgLymphocytes/100 WBC (Bld)2.50 %[facility] Hospital [facility] The King's DaughtersH (RBC) [Entitic mass]32.0 pg26 - 34 pg [facility]'s DaughtersHC (RBC) [Mass/Vol]33.7 g/dL31 - 37 g/dLBon [facility] HospitalV (RBC) [Entitic vol]94.9 fL80 - 100 fLRiverside Doctors' Hospital Williamsburg Monocytes/100 WBC (Bld)6 %1 - 7 %[facility] WilliamsburgMonocytes/100 WBC (Bld) 0.40 %[facility] WilliamsburgNeutrophils/100 WBC (Bld)51 %36 - 66 %[facility] WilliamsburgPlatelet mean volume (Bld) [Entitic vol]7.7 fL6.0 - 12.0 fLRiverside Doctors' Hospital WilliamsburgPlatelets (Bld) [#/Vol]514 10*3/uLHighRiverside Doctors' Hospital WilliamsburgRBC (Bld) [#/Vol]3.82 10*6/uLLow4.0 - 5.2 m/uLRiverside Doctors' Hospital Williamsburg Segmented neutrophils/100 WBC (Bld)3.60 %[facility] WilliamsburgWBC other (Bld) [#/Vol]7.0Bon [facility] Healthcare CenterCBC with Diffon 16-51-9937Fxj. Basophil0.10 k/uLNormal0.0-0.2Mercy [facility] Medical CenterComment on above:Performed By: #### BMP ####[facility] [address] [place] [address] Lab Director: Melvin Santoyo MD#### CDP ####[facility] [address] [place] [address] Lab Director: Ed Mcduffie DOAbs.Neutrophil (Seg)3.60 k/uLNormal1.3-9.1Mer[facility] Medical CenterComuniversity of michigan health–west on above:Performed By: #### BMP ####[address] [phone] Director: Melvin Santoyo MD#### CDP ####[facility] [address] [place] [address] Lab Director: Ed Mcduffie DOBasophils/100 WBC (Bld)1 % Normal0-2Mer[facility] CenterComuniversity of mich[facility] health–west on above:Performed By: #### BMP ####[address] [phone] Director: Melvin Santoyo MD#### CDP ####[address] [phone] Director: Ed Mcduffie DOEosinophils (Bld) [#/Vol]0.40 10*3/uLNormal0.0-0.4H[facility] HospitalComuniversity of mich[facility] health–[facility] on above:Performed By: #### BMP ####[address] [phone] Director: Melvin Santoyo MD#### CDP ####[address] [phone] Director: Ed Mcduffie DOEosinophils/100 WBC (Bld)6 %High0-4[facility] on above:Performed By: #### BMP ####[address] [phone] Director: Melvin Santoyo MD#### CDP ####[address] [address] Lab Director: Ed Mcduffie DOErythrocyte distribution width (RBC) [Ratio]14.2 %Lldbgo67.5-14.9[facility] on above:Performed By: #### BMP ####[address] [place] [address] Lab Director: Melvin Santoyo MD#### CDP ####[address] [address] Lab Director: Ed Mcduffie DOHematocrit (Bld) [Volume fraction]36.3 %Rjbajs42-02TxbagHarrison Community HospitalComuniversity of michigan health–west on above:Performed By: #### BMP ####[address] [address] Lab Director: Melvin Santoyo MD#### CDP ####[address] [address] Lab Director: Ed Mcduffie DOHemoglobin (Bld) [Mass/Vol]12.2 g/mTRwbdnj56.0-16.0H[facility] HospitalComuniversity of mich[facility] health–[facility] on above:Performed By: #### BMP ####[address] [address] Lab Director: Melvin Santoyo MD#### CDP ####[address] [address] Lab Director: Ed Mcduffie DOLymphocytes (Bld) [#/Vol]2.50 10*3/uLNormal1.0-4.8H[facility] HospitalComuniversity of mich[facility] on above:Performed By: #### BMP ####[address] [address] Lab Director: Melvin Santoyo MD#### CDP ####[address] [address] Lab Director: Ed Mcduffie DO Lymphocytes/100 WBC (Bld)36 %Ydewrr19-70SqutbKettering Health Troy on above:Performed By: #### BMP ####[address] [address] Lab Director: Melvin Santoyo MD#### CDP ####[address] [place] [address] Lab Director: Ed Mcduffie DOMCH (RBC) [Entitic mass]32.0 ryKawugm53-76PglgdHarrison Community HospitalComment on above:Performed By: #### BMP ####[address] [phone] Director: Melvin Santoyo MD#### CDP ####[address] [address] Lab Director: Ed Mcduffie DOMCHC (RBC) [Mass/Vol]33.7 g/gGTvlmje96-03JsnejHarrison Community HospitalComment on above:Performed By: #### BMP ####[address] [address] Lab Director: Melvin Santoyo MD#### CDP ####[address] [address] Lab Director: Ed Mcduffie DOMCV (RBC) [Entitic vol]94.9 xWKcmxme84-562CkwjpHarrison Community HospitalComment on above:Performed By: #### BMP ####[address] [phone] Director: Melvin Santoyo MD#### CDP ####[address] [address] Lab Director: Ed Mcduffie DOMonocytes (Bld) [#/Vol]0.40 10*3/uLNormal0.1-1.3Mer[facility] Medical CenterComment on above:Performed By: #### BMP ####[address], [place] [phone] Director: Melvin Santoyo MD#### CDP ####[facility] Hhb[address] [place], [place] [phone] Director: Ed Mcduffie DO Monocytes/100 WBC (Bld)6 %Normal1-7Harrison Community HospitalComment on above: Performed By: #### BMP ####[address] [phone] Director: Melvin Santoyo MD#### CDP ####[facility] [address] [place], [place] [phone] Director: Ed Mcduffie DONeutrophil (Seg)51 %Cwrzeh99-62EiatvHarrison Community Hospital Comment on above:Performed By: #### BMP ####[address] [phone] Director: Melvin Santoyo MD#### CDP ####[address] [place], [place] [address] Lab Director: Ed Mcduffie DOPlatelet mean volume (Bld) [Entitic vol]7.7 fLNormal6.0-12.0Harrison Community HospitalComment on above: Performed By: #### BMP ####[address] [phone] Director: Melvin Santoyo MD#### CDP ####[facility] Qde[address]67 [place], [place] [phone] Director: Ed Mcduffie DOPlatelets (Bld) [#/Vol]514 10*3/gZLnay690-292SqagrHarrison Community HospitalComment on above:Performed By: #### BMP ####[facility] [address] [place] [address] [phone] Director: Melvin Santoyo MD#### CDP ####[facility] [address] [facility] [place] [address] Lab Director: Ed Mcduffie DORBC (Blkatherine) [#/Vol]3.82 10*6/uLLow4.0-5.2Mer[facility] Medical CenterComment on above: Performed By: #### BMP ####[facility] [address] [place] [address] Lab Director: Melvin Santoyo MD#### CDP ####[facility] [address] [facility] [place] [address] Lab Director: Ed Mcduffie DOWBC (Bld) [#/Vol]7.0 10*3/uLNormal3.5-11.0Mer[facility] Medical CenterComment on above:Performed By: #### BMP ####[facility] [address] [place] [address] Lab Director: Melvin Santoyo MD#### CDP ####[facility] [address] [place], [place] [address] Lab Director: Ed Mcduffie DOXR Foot - left 3 Viewson . Redemonstrated findings compatible with a Lisfranc ligament injury, with midfoot dislocation. 2. Fractures of the cuneiforms and 2nd metatarsal are better visualized on comparison CT. [facility] RIS CONSOLIDATEDEXAMINATION: THREE XRAY VIEWS OF [...] and forefoot. No large ankle joint effusion. [facility] Yusuf Hall MD - 07/14/2024 EXAMINATION: [...] metatarsal are better visualized on comparison CT. [facility] WilliamsburgRadiology Study observation (narrative)[facility] WilliamsburgXR Foot - left 3 ViewsOrdered By: Yusuf Singh on 19-39-2706Vre [facility] Work Phone: CT Foot - left WO contraston . Dislocation of the midfoot. 2. Fractures of the medial, middle and lateral cuneiforms. 3. Fracture of the proximal aspect of the 2nd metatarsal. 4. Small osseous fragments at the dorsal aspect of the 4th and 5th metatarsals. [facility] CONSOLIDATEDEXAMINATION: CT OF THE LEFT FOOT [...] by hemorrhage. Joint: Dislocation of the midfoot [facility] Sonia Christie MD - 07/13/2024 EXAMINATION: [...] aspect of the 4th and 5th metatarsals. [facility]burgRadiology Study observation (narrative)[facility] Foot - left WO contrastOrdered By: Sonia Farrell on 08-15-6761Zto [facility] Work Phone: Glucose, Whole Bloodon 08-59-2739Uslhiub [Mass/Vol]101 mg/tCKqzy97 - 100 mg/dLBon [facility] ClinicInterpretation and review of laboratory resultsAbnormalBon [facility] CenterXR Foot - left 3 Viewson [id number] of the space between the 1st and 2nd metatarsal base that may relate to a Lisfranc ligament injury and subsequent tarsometatarsal dislocation involving at least the 2nd digit. CT of the foot may be helpful in further characterization. Soft tissue swelling. [facility] CONSOLIDATEDEXAMINATION: THREE XRAY VIEWS OF THE [...] are maintained. There is soft tissue swelling. [facility] Vern Parks MD - 07/13/2024 EXAMINATION: [...] helpful in further characterization. Soft tissue swelling. [facility] WilliamsburgRadiology Study observation (narrative)[facility] WilliamsburgXR Foot - left 3 ViewsOrdered By: Vern Olivo on 14-33-9425Hxm [facility] Work Phone: ct Sinuses WO contraston [id number] evidence of acute sinusitis. [facility] CONSOLIDATEDEXAMINATION: CT OF THE SINUS WITHOUT [...] IMPRESSION: No evidence of acute sinusitis. Bon ConnectloudCT Sinuses WO contrastOrdered By: Efra Sullivan on [id number] [facility] Work Phone: Basic Metabolic Panelon 16-90-5113Towtj gap [Moles/Vol]13 mmol/L9 - 16 mmol/LBon ConnectloudCalcium [Mass/Vol]9.7 mg/dL8.6 - 10.4 mg/dLBon [facility] ClinicChloride [Moles/Vol]101 mmol/L98 - 107 mmol/LBon [facility] ClinicCO2 [Moles/Vol]23 mmol/L20 - 31 mmol/LBon [facility] ClinicCreatinine [Mass/Vol]1.4 mg/dLHigh0.50 - 0.90 mg/dLBon [facility] ClinicEst, Glom Filt Mbso81Fby- PINFBon [facility] Comment on above: These results are not [...] that affects renal tubular secretion. Glucose [Mass/Vol]315 mg/eSCpth38 - 99 mg/dLBon [facility] Interpretation and review of laboratory resultsAbnormalRiverside [facility] Potassium [Moles/Vol]5.6 mmol/LHigh3.7 - 5.3 mmol/LBon [facility] Sodium [Moles/Vol]137 mmol/L136 - 145 mmol/LBon [facility] ClinicUrea nitrogen [Mass/Vol]29 mg/dLHigh6 - 20 mg/dLBon [facility] ClinicUrea nitrogen/Creatinine [Mass ratio]21 mg/mgHigh9 - 20Bon [facility] CenterCT Sinuses WO contraston [id number] Study observation (narrative)Bon [facility] ClinicTS with Reflexon [id number] Qn0.62 m[IU]/LBON [facility] CENTERXR Chest 2 Viewson 26-37-7803Kz radiographic evidence of acute cardiopulmonary disease. MHPN [...] No radiographic evidence of acute cardiopulmonary disease. [facility]ITALRadiology Study observation (narrative)[facility]ITALXR Chest 2 ViewsOrdered By: Jesus Otero on [id number] Work Phone: cbc with Auto Differentialon [id number] (Bld) [#/Vol]0.00 10*3/uLBON [facility]OSPITALBasophils/100 WBC (Bld)0 %0 - 2 %[facility] HOSPITALEosinophils (Bld) [#/Vol]0.00 10*3/uLBON [facility]OWN HOSPITALEosinophils/100 WBC (Bld)0 %Low1 - 4 %[facility] HOSPITALErythrocyte distribution width (RBC) [Ratio]13.1 %11.8 - 14.4 %[facility] Hematocrit (Bld) [Volume fraction]44.3 %36.3 - 47.1 %[facility] Hemoglobin (Bld) [Mass/Vol]14.6 g/dL11.9 - 15.1 g/dLB[facility] Immature granulocytes (Bld) [#/Vol]0.25 10*3/uLBON [facility]OWN HOSPITALImmature granulocytes/100 WBC (Bld)2 %Dehx7BTISENTARA VIRGINIA BEACH GENERAL HOSPITALInterpretation and review of laboratory resultsAbnormalBON MIDDLETOWN HOSPITALLymphocytes/100 WBC (Bld)20 %Low24 - 43 %[facility] HOSPITALLymphocytes/100 WBC (Bld)2.46 %[facility]ICAL CENTERH (RBC) [Entitic mass]31.3 pg25.2 - 33.5 pgBON SECOURS DEPAUL MEDICAL CENTERHC (RBC) [Mass/Vol]33.0 g/dL28.4 - 34.8 g/dLBON MIDDLETOWN HOSPITALMCV (RBC) [Entitic vol]95.1 fL82.6 - 102.9 fLSENTARA VIRGINIA BEACH GENERAL HOSPITAL Monocytes/100 WBC (Bld)6 %3 - 12 %[facility] HOSPITALMonocytes/100 WBC (Bld)0.74 %[facility] HOSPITALMorphology Alejo (Bld) [Interp]ANISOCYTOSIS PRESENTSENTARA VIRGINIA BEACH GENERAL HOSPITALNeutrophils/100 WBC (Bld)72 %High36 - 65 %[facility] HOSPITALNucleated RBC/100 WBC (Bld) [Ratio]0.0 %0.0 per 100 WBCSENTARA VIRGINIA BEACH GENERAL HOSPITALPlatelet mean volume (Bld) [Entitic vol]8.8 fL8.1 - 13.5 fL [facility] HOSPITALPlatelets (Bld) [#/Vol]438 10*3/uLBON MIDDLETOWN HOSPITALRBC (Bld) [#/Vol]4.66 10*6/uL3.95 - 5.11 m/uLSENTARA VIRGINIA BEACH GENERAL [facility]OSPITAL Segmented neutrophils/100 WBC (Bld)8.85 %HighSENTARA VIRGINIA BEACH GENERAL HOSPITALWBC other (Bld) [#/Vol]12.3HighRIVERSIDE HEALTH SYSTEMCT Head WO Contraston [id number] acute intracranial abnormality. MHPN RIS CONSOLIDATEDEXAMINATION: CT [...] is intact. Extracranial soft tissues are unremarkable. [facility] Brandon Valencia MD - 06/16/2023 EXAMINATION: [...] are unremarkable. IMPRESSION: No acute intracranial abnormality. [employer] [facility] Art SumoCLEVELAND CLINIC FAIRVIEW HOSPITALRadiology Study observation (narrative)[facility] AT DANVERSGoowy [facility]OSPITALCT Head WO ContrastOrdered By: Brandon Morfin on [id number] [employer] Work Phone: Comprehensive Metabolic Panelon [id number] [Mass/Vol]4.5 g/dL3.5 - 5.2 g/dLBON Semnur PharmaceuticalsAlbumin/Globulin [Mass ratio]1.4 {ratio}1.0 - 2.5BON [employer] PharmaceuticalsALP [Catalytic activity/Vol]59 U/L35 - 104 U/LBON [facility] MEDICAL CENTEREggrock PartnersALT [Catalytic activity/Vol]30 U/L5 - 33 U/LBON [facility] MEDICAL CENTEREggrock PartnersAnion gap [Moles/Vol]10 mmol/L9 - 17 mmol/LBON [facility]OSPITALAST [Catalytic activity/Vol]33 U/LHighNINF - 32 U/LBON [facility] SYSTEMBilirubin [Mass/Vol]0.3 mg/dL0.3 - 1.2 mg/dLBON SECMARY RUTAN HOSPITALCalcium [Mass/Vol]9.9 mg/dL8.6 - 10.4 mg/dLB[facility] Chloride [Moles/Vol]99 mmol/L98 - 107 mmol/LBON [facility] HOSPITALCO2 [Moles/Vol]26 mmol/L20 - 31 mmol/LBON [facility]OSPITALCreatinine [Mass/Vol] 1.0 mg/dLHigh0.5 - 0.9 mg/dLBON [facility] AppSameGFR/1.73 sq M.predicted MDRD (S/P/Bld) [Vol rate/Area]- PINFBON MIDDLETOWN HOSPITALComment on above: These results are not [...] that affects renal tubular secretion. Glucose [Mass/Vol]109 mg/kWAens41 - 99 mg/dLBON [facility] AppSame Interpretation and review of laboratory resultsAbnormalSENTARA [facility] Potassium [Moles/Vol]5.0 mmol/L3.7 - 5.3 mmol/LBON [facility]OSPITALProtein [Mass/Vol]7.8 g/dL6.4 - 8.3 g/dLBON MIDDLETOWN HOSPITALSodium [Moles/Vol]135 mmol/L135 - 144 mmol/LBON [facility] AppSameUrea nitrogen [Mass/Vol]29 mg/dL High6 - 20 mg/dLBON MIDDLETOWN HOSPITALUrea nitrogen/Creatinine [Mass ratio]29 mg/mgHigh9 - 20BON [facility]LETOWN HOSPITALBON SECMARY RUTAN HOSPITALTroponinon [id number] and review of laboratory resultsAbnormalSENTARA VIRGINIA BEACH GENERAL HOSPITALTroponin I.cardiac High sensitivity method [Mass/Vol]15 ng/LHigh0 - 14 ng/LBON [facility]OSPITALComment on above:High Sensitivity Troponin values cannot be compared with other Troponin methodologies.[facility] RE[facility]OSPITAL AT DANVERSEggrock PartnersXR CHEST PORTABLEon 19-10-0856Izri prominence of pulmonary vasculature and interstitium related to technique versus developing pulmonary edema. [facility] CONSOLIDATEDEXAMINATION: ONE XRAY VIEW OF THE CHEST 06/16/2023 6:31 pm COMPARISON: June 10, 2023 and additional prior exams. HISTORY: ORDERING SYSTEM PROVIDED HISTORY: Syncope TECHNOLOGIST PROVIDED HISTORY: Syncope FINDINGS: Mild increased prominence of the pulmonary vasculature and interstitium. No pleural effusion or pneumothorax identified. Cardiac and mediastinal silhouettes are within normal limits. No acute osseous abnormality identified. [facility] Jason Leal MD - 06/16/2023 EXAMINATION: [...] related to technique versus developing pulmonary edema. [facility] HOSPITALRadiology Study observation (narrative)[facility]OS[facility] AT DANVERSEggrock Partners CHEST PORTABLEOrdered By: Jason Long on 23-20-1468[facility] AppSame Work Phone: Basic Metabolic Panel w/ Reflex to MGon 06-14-2023 Anion gap [Moles/Vol]11 mmol/L9 - 17 mmol/LBON [facility] AppSameCalcium [Mass/Vol]9.9 mg/dL8.6 - 10.4 mg/dLBON [facility]ENTER SAN DIEGOGenoSpaceChloride [Moles/Vol] 98 mmol/L98 - 107 mmol/LBON [facility] SAN DIEGOBrickell Biotech [facility] HOSPITALCO2 [Moles/Vol]26 mmol/L20 - 31 mmol/LBON [facility] SAN DIEGOGenoSpaceCreatinine [Mass/Vol]0.9 mg/dL0.5 - 0.9 mg/dLBON [facility]ENTER SAN DIEGOGenoSpaceGFR/1.73 sq M.predicted MDRD (S/P/Bld) [Vol rate/Area]- PINF [facility]OSPITALComment on above: These results are not [...] that affects renal tubular secretion. Glucose [Mass/Vol]186 mg/dPEzzy74 - 99 mg/dLB[facility] Interpretation and review of laboratory resultsAbnormalB[facility] Potassium [Moles/Vol]4.4 mmol/L3.7 - 5.3 mmol/LBON [facility] R[facility] HOSPITALSodium [Moles/Vol]135 mmol/L135 - 144 mmol/LBON [facility] HOSPITALUrea nitrogen [Mass/Vol]30 mg/dLHigh6 - 20 mg/dLBON MIDDLETOWN HOSPITALUrea nitrogen/Creatinine [Mass ratio]33 mg/mgHigh9 - 20BON [facility]ALTH SYSTEMBON [facility]LETOWN HOSPITALCBC auto differentialon [id number] (Bld) [#/Vol] 0.03 10*3/uLBON [facility]FAIRHILLY [facility] HOSPITALBasophils/100 WBC (Bld)0 %0 - 2 %[employer] [facility] [employer] [facility] [employer] [facility] [facility]Y [facility] HOSPITALEosinophils (Bld) [#/Vol][facility] HEALTHEosinophils/100 WBC (Bld)0 %Low1 - 4 %[facility] [employer] HOSPITALErythrocyte distribution width (RBC) [Ratio]13.4 %11.8 - 14.4 %[facility] HEALTHHematocrit (Bld) [Volume fraction]35.7 %Low36.3 - 47.1 %[facility]ILLY HEALTHHemoglobin (Bld) [Mass/Vol]11.5 g/dLLow11.9 - 15.1 g/dLBON SECWALDO HOSPITALY [facility]OS[facility]ITALImmature granulocytes (Bld) [#/Vol]0.32 10*3/uLHighBON [facility]IR[facility]ILLY HEALTHImmature granulocytes/100 WBC (Bld)3 %Tgkf9PUWSENTARA VIRGINIA BEACH GENERAL HOSPITALInterpretation and review of laboratory resultsAbnormalBON [facility] HEALTHLymphocytes/100 WBC (Bld)16 %Low24 - 43 %BON [facility] RUTAN HOSPITALLymphocytes/100 WBC (Bld)1.82 %BON [facility]ENTERH (RBC) [Entitic mass]31.1 pg25.2 - 33.5 pgBON [facility] CAN[facility]ENTERHC (RBC) [Mass/Vol]32.2 g/dL28.4 - 34.8 g/dLBON SECSELECT MEDICAL SPECIALTY HOSPITAL - CLEVELAND-FAIRHILLV (RBC) [Entitic vol]96.5 fL82.6 - 102.9 fLSENTARA VIR[facility]IA [facility]ACH [facility]AL [facility] Monocytes/100 WBC (Bld)5 %3 - 12 %[facility] HOSPITALMonocytes/100 WBC (Bld)0.52 %[facility] HOSPITALNeutrophils/100 WBC (Bld)77 %High36 - 65 %[facility] HOSPITALNucleated RBC/100 WBC (Bld) [Ratio]0.0 %0.0 per 100 WBCBON MIDDLETOWN HOSPITALPlatelet mean volume (Bld) [Entitic vol]9.2 fL8.1 - 13.5 fL [facility] HEALTHPlatelets (Bld) [#/Vol]355 10*3/uLBON [facility]DLETOWN HOSPITALRBC (Bld) [#/Vol]3.70 10*6/uLLow3.95 - 5.11 m/uLSENTARA VIRGINIA [facility]ACH GENERAL [facility]ITAL Segmented neutrophils/100 WBC (Bld)8.74 %HighSENTARA VIRGINIA BEACH GENERAL HOSPITALWBC other (Bld) [#/Vol]11.4HighBON [address]ER[address] [facility]ENED[facility] HEALTH CENTERGlucose, Whole Bloodon 10-21-3071Vvpefrp [Mass/Vol]228 mg/lYGqas42 - 100 mg/dLBON [facility] HEALTHInterpretation and review of laboratory resultsAbnormalBON AVERA ST. [facility] HEALTH CENTERGlucose [Mass/Vol]167 mg/dXDrly67 - 100 mg/dLBON [facility] HEALTHInterpretation and review of laboratory results AbnormalBON AVERA ST. [facility] HEALTH CENTERBasic Metabolic Panel w/ Reflex to MGon 65-91-9766Tjipc gap [Moles/Vol]12 mmol/L9 - 17 mmol/LBON [facility]OSPITALCalcium [Mass/Vol]9.7 mg/dL8.6 - 10.4 mg/dLB[facility] Chloride [Moles/Vol]103 mmol/L98 - 107 mmol/LBON [facility] HOSPITALCO2 [Moles/Vol]23 mmol/L20 - 31 mmol/LBON [facility]OSPITALCreatinine [Mass/Vol] 0.7 mg/dL0.5 - 0.9 mg/dLBON [facility]DLETOWN HOSPITALGFR/1.73 sq M.predicted MDRD (S/P/Bld) [Vol rate/Area]- PINFBON MIDDLETOWN HOSPITALComment on above: These results are not [...] that affects renal tubular secretion. Glucose [Mass/Vol]199 mg/tQCgek06 - 99 mg/dLBON [facility] Interpretation and review of laboratory resultsAbnormalSENTARA [facility] Potassium [Moles/Vol]4.3 mmol/L3.7 - 5.3 mmol/LBON [facility] HOSPITALSodium [Moles/Vol]138 mmol/L135 - 144 mmol/LBON [facility]OSPITALUrea nitrogen [Mass/Vol]28 mg/dLHigh6 - 20 mg/dLBON [facility]DLETOWN HOSPITALUrea nitrogen/Creatinine [Mass ratio]40 mg/mgHigh9 - 20BON [facility]ERA [facility] HEALTH CENTERCBC auto differentialon [id number] (Bld) [#/Vol][facility]OSPITALBasophils/100 WBC (Bld)0 %0 - 2 %[facility] Eosinophils (Bld) [#/Vol]B[facility]LET[facility] HOSPITALEosinophils/100 WBC (Bld)0 %Low 1 - 4 %B[facility]Y HEALTHErythrocyte distribution width (RBC) [Ratio]13.6 %11.8 - 14.4 %[facility] HEALTHHematocrit (Bld) [Volume fraction]38.0 % 36.3 - 47.1 %[facility] HEALTHHemoglobin (Bld) [Mass/Vol]12.2 g/dL11.9 - 15.1 g/dLBON [facility] HEALTHImmature granulocytes (Bld) [#/Vol]0.24 10*3/uL [facility] HEALTHImmature granulocytes/100 WBC (Bld)2 %Bcbw9SKH [facility] HEALTHInterpretation and review of laboratory resultsAbnormalBON [facility] HEALTHLymphocytes/100 WBC (Bld)14 %Low24 - 43 %[facility]ON [facility] HEALTH Lymphocytes/100 WBC (Bld)1.87 %[facility] HEALTH SYSTEMMCH (RBC) [Entitic mass] 31.2 pg25.2 - 33.5 pgBON [facility]OSPITALHC (RBC) [Mass/Vol]32.1 g/dL28.4 - 34.8 g/dLBON [facility]Y [facility] HOSPITALMCV (RBC) [Entitic vol]97.2 fL82.6 - 102.9 fL [facility] HEALTHMonocytes/100 WBC (Bld)5 %3 - 12 %[facility] HEALTHMonocytes/100 WBC (Bld)0.60 %[facility] HEALTHNeutrophils/100 WBC (Bld)80 %High36 - 65 %[facility]ALTH SYSTEMNucleated RBC/100 WBC (Bld) [Ratio]0.0 %0.0 per 100 WBCBON [facility]Y HEALTHPlatelet mean volume (Bld) [Entitic vol]9.5 fL8.1 - 13.5 fLBON [facility]OURS MERCY HEALTHPlatelets (Bld) [#/Vol] 226 10*3/uLBON [facility] HEALTHRBC (Bld) [#/Vol]3.91 10*6/uLLow3.95 - 5.11 m/uLBON [facility] HEALTHSegmented neutrophils/100 WBC (Bld)10.70 %HighBON [facility]IR[facility]Y [facility] HOSPITALWBC other (Bld) [#/Vol]13.4HighRIVERSIDE HEALTH SYSTEMEKG Rhythm Stripon 90-03-5127RRVGGAURORA MEDICAL CENTER LABSENTARA VIRGINIA BEACH GENERAL HOSPITALGlucose, Whole Bloodon 33-35-3696Cexmmov [Mass/Vol]207 mg/sGRajt01 - 100 mg/dLBON [facility]DLETOWN HOSPITALInterpretation and review of laboratory resultsAbnormRappahannock General HospitalGlucose [Mass/Vol]217 mg/mCNlth31 - 100 mg/dLBON [facility]OWN HOSPITALInterpretation and review of laboratory resultsAbnormRappahannock General HospitalGlucose [Mass/Vol]197 mg/vWEhqy35 - 100 mg/dLBON [facility]OWN HOSPITALInterpretation and review of laboratory results AbnormalRIVERSIDE HEALTH SYSTEMGlucose [Mass/Vol]180 mg/vFZhki56 - 100 mg/dLBON [facility]OWN HOSPITALInterpretation and review of laboratory resultsAbnormRappahannock General HospitalBasic Metabolic Panel w/ Reflex to MGon 13-86-8168Msgkm gap [Moles/Vol]12 mmol/LBON [facility] HEALTHCalcium [Mass/Vol]9.3 mg/dL8.6 - 10.4 mg/dLBON [facility] HEALTHChloride [Moles/Vol]99 mmol/L98 - 107 mmol/LBON [facility] HEALTHCO2 [Moles/Vol]24 mmol/L20 - 31 mmol/LBON [facility] HEALTHCreatinine [Mass/Vol] 0.8 mg/dL0.5 - 0.9 mg/dLBON [facility] HEALTHGFR/1.73 sq M.predicted MDRD (S/P/Bld) [Vol rate/Area]- PINFBON MIDDLETOWN HOSPITALComment on above: These results are not [...] that affects renal tubular secretion. Glucose [Mass/Vol]295 mg/lSRtra21 - 99 mg/dLBON [facility] Interpretation and review of laboratory resultsAbnormalSENTARA [facility] Potassium [Moles/Vol]4.7 mmol/L3.7 - 5.3 mmol/LBON [facility]OWN HOSPITALSodium [Moles/Vol]135 mmol/L135 - 144 mmol/LBON [facility] HOSPITALUrea nitrogen [Mass/Vol]23 mg/dLHigh6 - 20 mg/dLBON MIDDLETOWN HOSPITALUrea nitrogen/Creatinine [Mass ratio]29 mg/mgHigh9 - 20BON [facility]ERA [facility]EN[facility] HEALTH CENTERCBC auto differentialon 43-38-3959Vmkbusagg (Bld) [#/Vol] 0.04 10*3/uLBON [facility] HOSPITALBasophils/100 WBC (Bld)0 %0 - 2 %[facility] HOSPITALEosinophils (Bld) [#/Vol]BON [facility] CENTEROURS MEMORIAL HEALTH SYSTEMEosinophils/100 WBC (Bld)0 %Low1 - 4 %[facility] HOSPITALErythrocyte distribution width (RBC) [Ratio]13.7 %11.8 - 14.4 %[facility] HOSPITALHematocrit (Bld) [Volume fraction]34.5 %Low36.3 - 47.1 %[facility] HOSPITALHemoglobin (Bld) [Mass/Vol]11.2 g/dLLow11.9 - 15.1 g/dLBON [facility]LETOWN HOSPITALImmature granulocytes (Bld) [#/Vol]0.18 10*3/uLBON [facility] Hard[facility] Hospitalmature granulocytes/100 WBC (Bld)1 %Gppx4OQV MID[facility]LETOWN HOSPITALInterpretation and review of laboratory resultsAbnormalBON MIDDLETOWN HOSPITALLymphocytes/100 WBC (Bld)10 %Low24 - 43 %[facility] HOSPITALLymphocytes/100 WBC (Bld)1.59 %[facility] HOSPITALMCH (RBC) [Entitic mass]31.6 pg25.2 - 33.5 pgBON MIDDLETOWN HOSPITALMCHC (RBC) [Mass/Vol]32.5 g/dL28.4 - 34.8 g/dLBON MIDDLETOWN HOSPITALMCV (RBC) [Entitic vol]97.5 fL82.6 - 102.9 fLSENTARA VIRGINIA BEACH GENERAL [facility]PITAL Monocytes/100 WBC (Bld)2 %Low3 - 12 %[facility] HOSPITALMonocytes/100 WBC (Bld)0.30 %[facility] HOSPITALNeutrophils/100 WBC (Bld)87 %High36 - 65 %[facility] HOSPITALNucleated RBC/100 WBC (Bld) [Ratio]0.0 %0.0 per 100 WBCSENTARA VIRGINIA BEACH GENERAL HOSPITALPlatelet mean volume (Bld) [Entitic vol]10.6 fL8.1 - 13.5 fL [facility] HEALTHPlatelets (Bld) [#/Vol]367 10*3/uLBON MIDDLETOWN HOSPITALRBC (Bld) [#/Vol]3.54 10*6/uLLow3.95 - 5.11 m/uLSENTARA VIRGINIA [facility]ACH GENERAL [facility]ITAL Segmented neutrophils/100 WBC (Bld)14.32 %HighSENTARA VIRGINIA BEACH GENERAL HOSPITALWBC other (Bld) [#/Vol]16.4HighRIVERSIDE HEALTH SYSTEMEKG Rhythm Stripon 18-37-8874OKSYDEAST OHIO REGIONAL HOSPITAL LABSENTARA VIRGINIA BEACH GENERAL HOSPITALGlucose, Whole Bloodon 93-22-6331Kncfwoe [Mass/Vol]175 mg/zBMixa64 - 100 mg/dLBON [facility] Interpretation and review of laboratory resultsAbnormalRUSSELL COUNTY MEDICAL CENTERGlucose [Mass/Vol]567 mg/dLCritically high74 - 100 mg/dL [facility]OSPITALInterpretation and review of laboratory resultsAbnormal [facility]ALTH SYSTEMGlucose [Mass/Vol]199 mg/dLHigh 74 - 100 mg/dLBON [facility]OWN HOSPITALInterpretation and review of laboratory resultsAbnormalBON AVERA ST. [facility] HEALTH CENTERGlucose [Mass/Vol]249 mg/qYIcer42 - 100 mg/dLBON [facility]LETOWN HOSPITALInterpretation and review of laboratory resultsAbnormRappahannock General HospitalGlucose [Mass/Vol]283 mg/pCDlhl52 - 100 mg/dLBON [facility] Interpretation and review of laboratory resultsAbnormCarilion ClinicBasic Metabolic Panel w/ Reflex to MGon 80-76-0951Avrbj gap [Moles/Vol]10 mmol/L9 - 17 mmol/LBON [facility] HOSPITALCalcium [Mass/Vol] 9.1 mg/dL8.6 - 10.4 mg/dLBON MIDDLETOWN HOSPITALChloride [Moles/Vol]105 mmol/L 98 - 107 mmol/LBON [facility] HOSPITALCO2 [Moles/Vol]26 mmol/L20 - 31 mmol/LBON [facility]OSPITALCreatinine [Mass/Vol]1.0 mg/dLHigh0.5 - 0.9 mg/dLBON [facility]DLETOWN HOSPITALGFR/1.73 sq M.predicted MDRD (S/P/Bld) [Vol rate/Area]- [facility] CENTERComment on above: These results are not [...] that affects renal tubular secretion. Glucose [Mass/Vol]153 mg/uWGfhr18 - 99 mg/dLBON [facility] Interpretation and review of laboratory resultsAbnoReston Hospital Center Potassium [Moles/Vol]4.7 mmol/L3.7 - 5.3 mmol/LBON MID[facility]LETOWN HOSPITALSodium [Moles/Vol]141 mmol/L135 - 144 mmol/LBON [facility]OWN HOSPITALUrea nitrogen [Mass/Vol]13 mg/dL6 - 20 mg/dLBON MIDDLETOWN HOSPITALUrea nitrogen/Creatinine [Mass ratio]13 mg/mg9 - 20BON [facility] CENTERBrain Natriuretic Peptideon [id number] peptide B (Bld) [Mass/Vol]74 pg/mL NINF - 300 pg/mLSENTARA VIRGINIA BEACH GENERAL HOSPITALComment on above: An age-independent cutoff point of 300 pg/ml has a 98% negative predictive value excluding acute heart failure. [facility]OSPITALCBC auto differentialon [id number] (Bld) [#/Vol]0.06 10*3/uLBON MIDDLETOWN HOSPITALBasophils/100 WBC (Bld)1 %0 - 2 %[facility] HOSPITALEosinophils (Bld) [#/Vol]0.34 10*3/uLBON MIDDLETOWN HOSPITALEosinophils/100 WBC (Bld)3 %1 - 4 %[facility] HOSPITALErythrocyte distribution width (RBC) [Ratio]14.0 %11.8 - 14.4 %[facility] Hematocrit (Bld) [Volume fraction]37.6 %36.3 - 47.1 %[facility] Hemoglobin (Bld) [Mass/Vol]12.0 g/dL11.9 - 15.1 g/dLBON [facility]DLETOWN [facility]OSP[facility] Immature granulocytes (Bld) [#/Vol]0.12 10*3/uLBON MIDDLETOWN HOSPITALImmature granulocytes/100 WBC (Bld)1 %[id number] VIRGINIA BEACH GENERAL HOSPITALInterpretation and review of laboratory resultsAbnormalSENTARA VIRGINIA BEACH GENERAL HOSPITALLymphocytes/100 WBC (Bld)20 %Low24 - 43 %[facility] HOSPITALLymphocytes/100 WBC (Bld)2.45 %[facility]ENTERH (RBC) [Entitic mass]31.6 pg25.2 - 33.5 pgBON SECOURS DEPAUL MEDICAL CENTERHC (RBC) [Mass/Vol]31.9 g/dL28.4 - 34.8 g/dLBON [facility]ER [facility]ENTERV (RBC) [Entitic vol]98.9 fL82.6 - 102.9 fLSENTARA VIRGINIA BEACH GENERAL [facility]ITAL Monocytes/100 WBC (Bld)2 %Low3 - 12 %[facility]ALTHMonocytes/100 WBC (Bld)0.30 %[facility] HEALTHNeutrophils/100 WBC (Bld)73 %High36 - 65 %[facility]ILLY HEALTHNucleated RBC/100 WBC (Bld) [Ratio]0.0 %0.0 per 100 WBCBON SECOURS [facility]-FAIRHILLY HEALTHPlatelet mean volume (Bld) [Entitic vol]9.4 fL8.1 - 13.5 fL [facility] - [place] HEALTHPlatelets (Bld) [#/Vol]297 10*3/uLBON [facility] HEALTHRBC (Bld) [#/Vol]3.80 10*6/uLLow3.95 - 5.11 m/uLBON [facility]ALTH Segmented neutrophils/100 WBC (Bld)9.30 %HighUNITED STATES AIR FORCE [facility]ILL[facility] HEALTHWBC other (Bld) [#/Vol]12.6HighNEW ENGLAND REHABILITATION HOSPITAL AT DANVERSOURS [facility] HEALTHBON [facility] HEALTHEKG 12 Lead on 59-33-1542Hoyjiq Urch52TGPODY SECOURS MERCY HEALTHP Emwo68fqrdxyaWGN [facility] HEALTHP-R Xxioigwh852 msUNITED STATES AIR [facility] SECOURS MERCY HEALTHQ-T Nlvupwkt576 msUNITED STATES AIR [facility] HEALTHQRS Facamrvv70 msUNITED STATES AIR [facility]ILL[facility] HEALTHQTc Calculation (Bazett)449 msUNITED STATES AIR [facility] HEALTHR Pqtz34sxgohfiLRK [facility] HEALTHT Exrs66ltksolqCUZ SECOU[facility] MERCY HEALTHVentricular Anhu65TORTKO [facility] [place] HEALTHNormal sinus rhythm Normal ECG When compared with ECG of 06-AUG-2022 17:11, No significant change was found Confirmed by Nathan Ardon MD ([id number]) on 06/11/2023 4:31:21 [facility] Nathan Ardon MD - 06/11/2023 Normal sinus rhythm Normal ECG When compared with ECG of 06-AUG-2022 17:11, No significant change was found Confirmed by Nathan Ardon MD ([id number]) on 06/11/2023 4:31:[address] [facility] HEALTHEKG Rhythm Stripon 06-11-2023 [facility] LABST[facility] LABSENTARA VIR[facility]ACH [facility]AL HOSPITALGlucose, Whole Bloodon 43-21-3172Eziomwy [Mass/Vol]407 mg/uXPuzw20 - 100 mg/dLBON MIDDLETOWN HOSPITALInterpretation and review of laboratory resultsAbnormRappahannock General HospitalGlucose [Mass/Vol]473 mg/mOApgv20 - 100 mg/dLBON [facility] Interpretation and review of laboratory resultsAbnormCarilion ClinicGlucose [Mass/Vol]336 mg/jYSeso11 - 100 mg/dLBON MIDDLETOWN HOSPITALInterpretation and review of laboratory resultsAbnormRappahannock General HospitalGlucose [Mass/Vol]168 mg/lYXjxv94 - 100 mg/dLBON MIDDLETOWN HOSPITALInterpretation and review of laboratory results AbnormalRIVERSIDE HEALTH SYSTEMLactate, Sepsison 81-20-0555Fcddahy (BldV) [Moles/Vol]1.7 mmol/L0.5 - 1.9 mmol/LBON [facility]ER[facility] [address] BENEDICT HEALTH CENTERLactate (BldV) [Moles/Vol]1.7 mmol/L0.5 - 1.9 mmol/LBON [address] [address] BENEDICT HEALTH CENTERProcalcitoninon 06-11-2023 Procalcitonin [Mass/Vol]0.07 ng/mLNINF - 0.09 ng/mLSENTARA [facility]IA BEACH GENERAL [facility]OSPITAL Comment on above: Suspected Sepsis: [...] entered into the Change in Procalcitonin Calculator (www.yqzydn-ulb-kyejiitapc.com) to determine the patient's Mortality Risk Prognosis In healthy neonates, plasma Procalcitonin (PCT) concentrations increase gradually after , reaching peak values at about 24 hours of age then decrease to normal values below 0.5 ng/mL by 48-72 hours of age. [facility] HOSPITALTroponinon 81-09-6204Odmudbleqdlmlh and review of laboratory resultsAbnormalBON MIDDLETOWN HOSPITALTroponin I.cardiac High sensitivity method [Mass/Vol]26 ng/LHigh0 - 14 ng/LBON [facility] Comment on above:High Sensitivity Troponin values cannot be compared with other Troponin methodologies.[facility] HEALTHCAREC with Auto Differentialon 05-10-1320Zcywuvzou (Bld) [#/Vol]0.07 10*3/uLBON [facility] Basophils/100 WBC (Bld)1 %0 - 2 %[facility]AL HOSPITALEosinophils (Bld) [#/Vol]0.40 10*3/uLBON MIDDLETOWN HOSPITALEosinophils/100 WBC (Bld)5 %High1 - 4 %[facility]AL HOSPITALErythrocyte distribution width (RBC) [Ratio]14.0 %11.8 - 14.4 %[facility] HOSPITALHematocrit (Bld) [Volume fraction]41.8 %36.3 - 47.1 %[facility] HOSPITALHemoglobin (Bld) [Mass/Vol]13.3 g/dL11.9 - 15.1 g/dLBON MIDDLETOWN HOSPITALImmature granulocytes (Bld) [#/Vol]0.16 10*3/uLBON [facility] granulocytes/100 WBC (Bld)2 %Vhze1JRZ MIDDLETOWN HOSPITALInterpretation and review of laboratory resultsAbnormalBON MIDDLETOWN HOSPITALLymphocytes/100 WBC (Bld)34 %24 - 43 %[facility] Lymphocytes/100 WBC (Bld)2.92 %[facility] [...] [Entitic vol]9.1 fL8.1 - 13.5 fLBON [facility] - [place] HEALTHPlatelets (Bld) [#/Vol]370 10*3/uLBON [facility] - [facility]ILLY HEALTHRBC (Bld) [#/Vol]4.24 10*6/uL3.95 - 5.11 m/uLBON [facility] - [place] HEALTHSegmented neutrophils/100 WBC (Bld)4.33 %BON [facility]CY HEALTHWBC other (Bld) [#/Vol]8.6BON [facility] - [facility] HEALTHBON [facility] CMPon 53-38-4690Leoagmz [Mass/Vol]4.7 g/dL3.5 - 5.2 g/dLBON [facility] Albumin/Globulin [Mass ratio]1.6 {ratio}1.0 - 2.5BON [...] MERCY HEALTHChloride [Moles/Vol]98 mmol/L98 - 107 mmol/LBON [facility] HOSPITALCO2 [Moles/Vol]31 mmol/L20 - 31 mmol/LBON [facility] Creatinine [Mass/Vol]1.1 mg/dLHigh0.5 - 0.9 mg/dLBON [facility] GFR/1.73 sq M.predicted MDRD (S/P/Bld) [Vol rate/Area]- PINFBON MIDDLETOWN HOSPITALComment on above: These results are not [...] that affects renal tubular secretion. Glucose [Mass/Vol]109 mg/lHWwmh50 - 99 mg/dLBON [facility] Interpretation and review of laboratory resultsAbnormalSENTARA [facility] Potassium [Moles/Vol]4.2 mmol/L3.7 - 5.3 mmol/LBON [facility] HOSPITALProtein [Mass/Vol]7.7 g/dL6.4 - 8.3 g/dLBON MIDDLETOWN HOSPITALSodium [Moles/Vol]139 mmol/L135 - 144 mmol/LBON [facility]OWN HOSPITALUrea nitrogen [Mass/Vol]15 mg/dL6 - 20 mg/dLBON MIDDLETOWN HOSPITALUrea nitrogen/Creatinine [Mass ratio]14 mg/mg9 - 20BON [facility]LETOWN HOSPITALCOVID-19, Rapidon 34-45-7211PJEM-CoV-2 (COVID-19) RdRp gene ASHLEY+probe Ql (Resp)Not detectedNot [facility] Comment on above: Rapid NAAT: The specimen [...] management decisions. Fact sheet for Healthcare Providers: https://www.fda.gov/media/344964/download Fact sheet for Patients: https://www.fda.gov/media/658495/download Methodology: Isothermal Nucleic Acid Amplification Specimen Description.NASOPHARYNGEAL SWABBON [facility] CERVICAL SPINE WO CONTRASTon . No acute traumatic abnormality involving the cervical spine. [facility] CONSOLIDATEDEXAMINATION: CT OF THE CERVICAL SPINE [...] There is no prevertebral soft tissue swelling. [facility] Niles Blanco MD - 06/10/2023 EXAMINATION: [...] acute traumatic abnormality involving the cervical spine. [facility] HOSPITALRadiology Study observation (narrative)[facility] HOSPITALCT CERVICAL SPINE WO CONTRASTOrdered By: Niels Barbosa on 12-33-7539SXM [facility] Work Phone: ct CHEST PULMONARY EMBOLISM W CONTRASTon 06-10-2023 Mild nonspecific bibasilar interstitial infiltrates. Coronary artery disease. [facility] CONSOLIDATEDEXAMINATION: CTA OF THE CHEST 06/10/2023 [...] No acute bone or soft tissue abnormality. [facility] Zak Dennis MD - 06/10/2023 EXAMINATION: [...] nonspecific bibasilar interstitial infiltrates. Coronary artery disease. [facility]ALTH SYSTEMRadiology Study observation (narrative)[facility] Head WO Contraston 71-89-6357In acute intracranial abnormality. [facility] CONSOLIDATEDEXAMINATION: CT OF THE HEAD WITHOUT [...] of the visualized skull or soft tissues. [facility] Zak Dennis MD - 06/10/2023 EXAMINATION: [...] soft tissues. IMPRESSION: No acute intracranial abnormality. [facility] Art SumoCLEVELAND CLINIC FAIRVIEW HOSPITALRadiology Study observation (narrative)[facility] Vayusa [facility] HOSPITALCT Head WO ContrastOrdered By: Zak Duque on 46-31-8634WRB YAV[facility] REGIONAL MEDICAL CENTERSpotsetter AppSame Work Phone: Magnesiumon 40-80-1637Ifcrardol [Mass/Vol]2.0 mg/dL1.6 - 2.6 mg/dLBON YAVAPAI REGIONAL MEDICAL CENTERSpotsetterCLEVELAND CLINIC FAIRVIEW HOSPITALNo Panel Informationon 44-88-5677WAL [facility]AV[facility] REGIONAL MEDICAL CENTERPVC Recycling MEM[facility]IAL HEALTH SYSTEMTroponinon 04-74-6920Ngtgfnuantutvh and review of laboratory resultsAbnormalBON [facility] Ohiooponin I.cardiac High sensitivity method [Mass/Vol]27 ng/LHigh0 - 14 ng/LBON [facility] HOSPITALComment on above: High Sensitivity Troponin values cannot be compared with other Troponin methodologies.[facility] RE[facility]OSPITAL AT DANVERSGoowy [facility] HOSPITALXR CHEST (2 VW)on 80-68-9660Rw acute process. [facility] CONSOLIDATEDEXAMINATION: TWO XRAY VIEWS OF THE CHEST 06/10/2023 9:33 pm COMPARISON: None. HISTORY: ORDERING SYSTEM PROVIDED HISTORY: Cough x1wk TECHNOLOGIST PROVIDED HISTORY: Cough x1wk FINDINGS: The lungs are without acute focal process. There is no effusion or pneumothorax. The cardiomediastinal silhouette is without acute process. The osseous structures are without acute process. [facility] Zak Dennis MD - 06/10/2023 EXAMINATION: TWO XRAY VIEWS OF THE CHEST 06/10/2023 9:33 pm COMPARISON: None. HISTORY: ORDERING SYSTEM PROVIDED HISTORY: Cough x1wk TECHNOLOGIST PROVIDED HISTORY: Cough x1wk FINDINGS: The lungs are without acute focal process. There is no effusion or pneumothorax. The cardiomediastinal silhouette is without acute process. The osseous structures are without acute process. IMPRESSION: No acute process. [facility] SYSTEMRadiology Study observation (narrative)[facility] GLUCOSEon 31-12-6046Foilzty [Mass/Vol]136 mg/dLCritically wbwl16-787TpoCleveland Clinic Akron GeneralComment on above: Performed By: #### POCGLUC #### [facility] [address] [address] [address] Murillo [facility] GLUCOSEon 26-70-4988Quhytxk [Mass/Vol]129 mg/dL Critically uzrv56-618MntCleveland Clinic Akron GeneralComment on above:Performed By: #### POCGLUC #### [facility] [address] [address] [address] [facility]CHELSEA [facility] THORACIC SPINE WO CONTRASTon 04-94-6469Cc acute abnormality in the thoracic spine. No significant spinal canal or neural foraminal narrowing. [facility] CONSOLIDATEDEXAMINATION: MRI OF THE THORACIC SPINE [...] neural foraminal narrowing of the thoracic spine. [facility] Shabbir Kc DO - 12/28/2022 EXAMINATION: [...] significant spinal canal or neural foraminal narrowing. [employer] Work Phone: radiology Study observation (narrative)[employer] Phone: MRI THORACIC SPINE WO CONTRASTOrdered By: Shabbir Weaver on 93-85-1754LDB [email or web address] Phone: Colonoscopy studyon 84-06-6177To dictationUNITED STATES [facility] [email or web address] Phone: colonoscopy studyOrdered By: Roberto Epic on 12-08-2022 [facility] [email or web address] Phone: Glucose, Whole Bloodon 92-87-8667Dnenjhx [Mass/Vol]117 mg/xMKwbo12 - 100 mg/dLBON [employer] PharmaceuticalsInterpretation and review of laboratory resultsAbnormalUNITED STATES [facility] Semnur PharmaceuticalsUNITED STATES [facility] Semnur PharmaceuticalsXR TSPINE 2 VIEWSon 36-87-9208YX TSPINE 2 VIEWSEXAMINATION: XR TSPINE 2 VIEWS, [...] Electronically authenticated by: PHILLIP CAMACHO Date: 2022-12-01 09:[address] [place] [address] LUMBAR SPINE WO CONTRASTon 09-34-3962Iryb degenerative change without canal stenosis or foraminal narrowing. RECOMMENDATIONS: Unavailable [facility] CONSOLIDATEDEXAMINATION: MRI OF THE LUMBAR SPINE [...] is no canal stenosis or foraminal narrowing. [facility] Vern Parks MD - 11/17/2022 EXAMINATION: [...] canal stenosis or foraminal narrowing. RECOMMENDATIONS: Unavailable [employer] Phone: radiology Study observation (narrative)[employer] Phone: MRI LUMBAR SPINE WO CONTRASTOrdered By: Vern Olivo on 80-19-6515ZJF [email or web address] Phone: basic Metabolic Panelon 10-26-7920Jyngx gap [Moles/Vol]14.5 mmol/LNormal6.0-15.0Sycamore Medical CenterComment on above:Performed By: #### DIFF CBC, BMP #### [facility] [address] [place] [address] USACalcium [Mass/Vol]9.2 mg/dLNormal8.2-10.2FMercy HealthComment on above:Performed By: #### DIFF CBC, BMP #### [facility] [address] [id number] USAChloride [Moles/Vol]101 mmol/NJjprkp39-164MkhdkanoeSycamore Medical CenterComment on above:Performed By: #### DIFF CBC, BMP #### [facility] [address] [place] [address] USACO2 [Moles/Vol]24.0 mmol/NVhgkyv81.0-30.0Sycamore Medical CenterComment on above:Performed By: #### DIFF CBC, BMP #### [facility] [address] [id number] USACreatinine [Mass/Vol]1.02 mg/dLNormal0.44-1.03Sycamore Medical CenterComment on above:Performed By: #### DIFF CBC, BMP #### [facility] [address] [place] [address] USACreatinine Clr Calc Jmshzrxr34.76NoSt. Charles HospitalComment on above:Result Comment: PERFORMED BY: [facility] [address] [place] [address] PATHOLOGIST ADMISSIONS REPRESENTATIVE GRZEGORZ DUMONT M.D.Performed By: #### DIFF CBC, BMP #### [facility] [address] [place] [address] USAEstimated GFR ( Mai> 60Coshocton Regional Medical CenterComment on above:Result Comment: GFR estimated reference range: According to KDOQI guidelines, <60 ml/min/1.73m2 is sufficient to diagnose a patient with chronic kidney disease.Performed By: #### DIFF CBC, BMP #### [facility] [address] [place] [address] USAEstimated GFR (Non- Dq73DdoqamLqxjvyuamCoshocton Regional Medical CenterComment on above:Performed By: #### DIFF CBC, BMP #### [place] [address] USAGlucose [Mass/Vol]223 mg/hIZedp86-827JlvdpxaqtSycamore Medical CenterComment on above:Result Comment: Random Glucose Reference Range is dependent on time and content of last meal. Glucose of more than 200 mg/dL in a nonstressed, ambulatory subject supports the diagnosis of Diabetes Mellitus. ADA recommended reference rangePerformed By: #### DIFF CBC, BMP #### [facility] [address] [place] [address] USAPotassium [Moles/Vol]4.5 mmol/LNormal3.5-5.1FMercy HealthComment on above:Performed By: #### DIFF CBC, BMP #### [facility] [address] [place] [address] USASodium [Moles/Vol]135 mmol/SKdj060-512OoimlbmbaSycamore Medical CenterComment on above:Performed By: #### DIFF CBC, BMP #### [facility] [address] [place] [address] USAUrea nitrogen [Mass/Vol]29 mg/dLNorfolk State Hospital[address] [place], [place] [address]Comment on above:Performed By: #### DIFF CBC, BMP #### [facility] [address] [place] [address] USAGlucose Poct Glucometerson 74-35-9783Cmubjxw [Mass/Vol]239 mg/dLNoSt. Charles HospitalComment on above:Result Comment: Random Glucose Reference Range is dependent on time and content of last meal. Glucose of more than 200 mg/dL in a nonstressed, ambulatory subject supports the diagnosis of Diabetes Mellitus. PERFORMED BY: [facility] [address] [place] [address] PATHOLOGIST ADMISSIONS REPRESENTATIVE GRZEGORZ DUMONT M.D.Performed By: #### GLULS #### Point of Care testing ,Glucose [Mass/Vol]234 mg/dLCoshocton Regional Medical CenterComment on above:Result Comment: Random Glucose Reference Range is dependent on time and content of last meal. Glucose of more than 200 mg/dL in a nonstressed, ambulatory subject supports the diagnosis of Diabetes Mellitus. PERFORMED BY: [place] [address] PATHOLOGIST ADMISSIONS REPRESENTATIVE GRZEGORZ DUMONT M.D.Performed By: #### GLULS #### Point of Care testing ,COVID-19 Antigenon 33-77-6128CTJSH-19 AntigenHealthcare Worker?: N Reference Range: Negative Negative [...] determined by [employer] and validated at [facility]. This test has not been [...] for SARS Antigen by RY PERFORMED BY: [place] [address] PATHOLOGIST ADMISSIONS REPRESENTATIVE GRZEGORZ DUMONT M.D.Coshocton Regional Medical CenterComment on above: Performed By: #### COVID-19 TAB, SOFIANEG #### [place] [address] USACOVID-19 SOFIAOrdered By: Shiraz Sherman on 09-30-2022 SARS-CoV+SARS-CoV-2 (COVID-19) Ag IA.rapid Ql (Resp)NegativeNegMercy Health – The Jewish HospitalComment on above:This is a duplicate Tab SARS Antigen (RY) result to be used for statistical tracking purpose only.No Panel InformationOrdered By: Shiraz Sherman on 75-77-4486TJTB Antigen (LFIA)[facility] Osteopathic Clinicofia Ag Negativeon 21-83-5305Qhwfo Ag NegativeNegative NormalNegMercy Health – The Jewish HospitalComment on above:Result Comment: This is a duplicate Tab SARS Antigen (RY) result to be used for statistical tracking purpose only. 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 STUDY CONCLUSIONS: Abnormal head [...] MD YURY/JULIUS_KIARA Doc#: Unknown CC: Vivian Lemos, TELEPHONE STATION REPAIRER-[facility] [employer] Work Phone: Tilt Table TestOrdered By: Sharon Vargas on 09-29-2022 [employer] [facility] [facility] [employer] Work Phone: LDL Cholesterol, Directon 51-69-4871Vpjlmyrhjsy in LDL [Mass/Vol]48 mg/dLNINF - 100 mg/dLBON YAVAPAI REGIONAL MEDICAL CENTEREggrock PartnersNEW ENGLAND REHABILITATION HOSPITAL AT DANVERSGoowy [facility] 36-54-3205ZXA [Catalytic activity/Vol]U/LLow5 - 33 U/LBON YAVAP[facility] REGIONAL MEDICAL CENTERGoowy [facility] HOSPITALInterpretation and review of laboratory resultsAbnormalBON YAVAPAI REGIONAL MEDICAL CENTERGoowy [facility] HOSPITALASTon 12-89-1769VOZ [Catalytic activity/Vol]U/LNINF - 32 U/LBON [facility] REGION[facility] MEDICAL CENTERGoowy [facility] HOSPITALBand form neutrophils/100 WBC Manual cnt (Bld)Ordered By: Shiraz Sherman on 05-92-1317Mujg form neutrophils/100 WBC (Bld)4 %0-5FMercy HealthBasic Metabolic Panelon 36-79-8446Olavg gap [Moles/Vol] 14.4 mmol/LNormal6.0-15.0Sycamore Medical CenterComment on above: Performed By: #### DIFF CBC, BMP #### [place] [address] USACalcium [Mass/Vol]10.0 mg/dLNormal8.2-10.2FMercy HealthComment on above:Result Comment: PERFORMED BY: [place] [address] PATHOLOGIST ADMISSIONS REPRESENTATIVE GRZEGORZ DUMONT M.D.Performed By: #### DIFF CBC, BMP #### [facility] [address] [place] [address] USAChloride [Moles/Vol]99 mmol/IAffubz85-701VwtbtavfwSycamore Medical CenterComment on above:Performed By: #### DIFF CBC, BMP #### [place] [address] USACO2 [Moles/Vol]23.5 mmol/KXcmajt42.0-30.0Sycamore Medical CenterComment on above:Performed By: #### DIFF CBC, BMP #### [place] [address] USACreatinine [Mass/Vol]0.91 mg/dLNormal0.44-1.03Sycamore Medical CenterComment on above:Performed By: #### DIFF CBC, BMP #### [place] [address] USAEstimated GFR ( Mai> 60NormOhioHealth Grady Memorial HospitalComment on above:Result Comment: GFR estimated reference range: According to KDOQI guidelines, <60 ml/min/1.73m2 is sufficient to diagnose a patient with chronic kidney disease.Performed By: #### DIFF CBC, BMP #### [place] [address] USAEstimated GFR (Non- Am> 60NormOhioHealth Grady Memorial HospitalComment on above:Performed By: #### DIFF CBC, BMP #### [place] [address] USAGlucose [Mass/Vol]270 mg/pCFogd58-812KqdewextkSycamore Medical CenterComment on above:Result Comment: Random Glucose Reference Range is dependent on time and content of last meal. Glucose of more than 200 mg/dL in a nonstressed, ambulatory subject supports the diagnosis of Diabetes Mellitus. ADA recommended reference rangePerformed By: #### DIFF CBC, BMP #### [facility] [address] [place] [address] USAPotassium [Moles/Vol]4.9 mmol/LNormal3.5-5.1FMercy HealthComment on above:Performed By: #### DIFF CBC, BMP #### [facility] [address] [place] [address] USASodium [Moles/Vol]132 mmol/RZmy650-844YcvbrvgfaSycamore Medical CenterComment on above:Performed By: #### DIFF CBC, BMP #### [facility] [address] [place] [address] USAUrea nitrogen [Mass/Vol]20 mg/dLNormal9-23Sycamore Medical CenterComment on above:Performed By: #### DIFF CBC, BMP #### [facility] [address] [place] [address] USAAnion gap [Moles/Vol]15 mmol/L9 - 17 mmol/LBON SECGoowy HEALTHCalcium [Mass/Vol]10.2 mg/dL8.6 - 10.4 mg/dLBON SECEggrock Partners Chloride [Moles/Vol]98 mmol/L98 - 107 mmol/LBON SECGoowy HEALTHCO2 [Moles/Vol]22 mmol/L20 - 31 mmol/LBON SECEggrock PartnersCreatinine [Mass/Vol] 0.85 mg/dL0.50 - 0.90 mg/dLBON SECGoowy HEALTHGFR/1.73 sq M.predicted MDRD (S/P/Bld) [Vol rate/Area]- PINFBON YAVAPAI REGIONAL MEDICAL CENTERGoowy [facility] HOSPITALComment on above: Effective Jun 28, 2022 [...] that affects renal tubular secretion. Glucose [Mass/Vol]271 mg/nEDruz29 - 99 mg/dLBON [facility] Interpretation and review of laboratory resultsAbnormalBON SECOURS [facility] Potassium [Moles/Vol]4.8 mmol/L3.7 - 5.3 mmol/LBON SECOURS MERCY HEALTHSodium [Moles/Vol]135 mmol/L135 - 144 mmol/LBON SECOURS MERCY HEALTHUrea nitrogen (BldV) [Mass/Vol]22 mg/dLHigh6 - 20 mg/dLBON SECOURS [facility] - [facility]-FAIRHILLY HEALTHUrea nitrogen/Creatinine (Bld) [Mass ratio]31Biyd1 - 20B[facility] HEALTHBON [facility] HEALTHBasophils Auto (Bld) [#/Vol]Ordered By: Shiraz Sherman on 20-58-9104Ybbudruiu (Bld) [#/Vol]N/[facility] Basophils/100 WBC Auto (Bld)Ordered By: Shiraz Sherman on 64-12-7349Ugpcgwwfj/100 WBC (Bld)N/[facility] HospitalBasophils/100 WBC Manual cnt (Bld) Ordered By: Shiraz Sherman on 63-30-0421Zhzvnuhox/100 WBC (Bld)1 %0-[address] [place], [place] [address]CBC with Auto Differentialon 20-50-7391Rvlzkbnh Eos #0.57 HighBON SECOURS [facility]-FAIRHILLY [facility] HOSPITALAbsolute Immature Granulocyte0.19B[facility] MERCY HEALTHAbsolute Lymph #3.29B[facility]RS MERCY HEALTHAbsolute Guthrie #0.66B[facility]-FAIRHILLY [facility] HOSPITALBasophils (Bld) [#/Vol]0.11 10*3/uLBON SECOURS [facility] - [facility] Basophils/100 WBC (Bld)1 %0 - 2 %[facility]ITALEosinophils/100 WBC (Bld)6 %High1 - 4 %[facility] HEALTHHematocrit (Bld) [Volume fraction] 43.2 %36.3 - 47.1 %[facility] HEALTHHemoglobin (Bld) [Mass/Vol]13.9 g/dL 11.9 - 15.1 g/dLBON [facility]OSPITALImmature granulocytes/100 WBC (Bld)2 % Zpsw8BMK [facility] HEALTHInterpretation and review of laboratory results AbnormalBON [facility] HOSPITALLymphocytes/100 WBC (Bld)35 %24 - 43 %[facility]ON [facility]ENTERH (RBC) [Entitic mass]32.3 pg25.2 - 33.5 pgBON SECSELECT [facility]ILLHC (RBC) [Mass/Vol]32.2 g/dL28.4 - 34.8 g/dLBON SECSELECT [facility] - [facility]HILLV (RBC) [Entitic vol]100.5 fL82.6 - 102.9 fLBON [facility] Monocytes/100 WBC (Bld)7 %3 - 12 %[facility] HEALTHNRBC Automated0.00.0 per 100 WBCBON SECOCHSN[facility] HEALTHPlatelet distribution width (Bld) [Ratio]13.2 %11.8 - 14.4 %[facility] HEALTHPlatelet mean volume (Bld) [Entitic vol] 9.1 fL8.1 - 13.5 fLBON [facility]OCHSN[facility] CENTER HEALTHPlatelets (Bld) [#/Vol]393 10*3/uLBON [facility]OCHSN[facility] HEALTHRBC (Bld) [#/Vol]4.30 10*6/uL3.95 - 5.11 m/uLBON [facility]OWN HOSPITALSegmented neutrophils/100 WBC (Bld)49 %36 - 65 %[facility]OSPITALSegs Absolute4.59B[facility]SN[facility] HEALTHWBC (Bld) [#/Vol]9.4 10*3/uLBON SECASHTABUL[facility] SECW[facility]PITALY HEALTHCreatinine and Glomerular filtration rate.predicted panel (S/P/Bld)Ordered By: Shiraz Sherman on 89-94-3379Vgiwrusfec [Mass/Vol]0.91 mg/dL0.44-1.03Sycamore Medical CenterDiff and CBCon 50-82-3740Ioch form neutrophils/100 WBC (Bld)4 %Normal0-5FMercy HealthComment on above:Performed By: #### DIFF CBC, BMP #### [facility] [address] [place] [address] USABasophils/100 WBC (Bld)1 %Normal0-2FMercy HealthComment on above:Performed By: #### DIFF CBC, BMP #### [facility] [address] [place] [address] USAEosinophils/100 WBC (Bld)7 %High1-3FMercy HealthComment on above:Performed By: #### DIFF CBC, BMP #### [facility] [address] [place] [address] USAErythrocyte distribution width (RBC) [Ratio]14.2 %Normal 11.9-15.3FMercy HealthComment on above:Performed By: #### DIFF CBC, BMP #### [facility] [address] [place] [address] USAGiant Platelet Tally2 /100{WBC}NormalSycamore Medical CenterComment on above:Performed By: #### DIFF CBC, BMP #### [facility] [address] [place] [id number] USAHematocrit (Bld) [Volume fraction]38.8 %Fsxhex46.0-46.4 [facility] Medical CenterComment on above:Performed By: #### DIFF CBC, BMP #### [facility] [address] [place] [address] USAHemoglobin (Bld) [Mass/Vol]12.9 g/aGCmtkpi14.8-15.4 [facility] Medical CenterComment on above:Performed By: #### DIFF CBC, BMP #### [facility] [address] [place] [address] USALymphocytes/100 WBC (Bld)15 %Ecg39-91SatkqemggSycamore Medical CenterComment on above:Performed By: #### DIFF CBC, BMP #### [facility] [address] [place] [address] USAMCH (RBC) [Entitic mass]31.0 drNqcmuw36.7-34.3FMercy HealthComment on above:Performed By: #### DIFF CBC, BMP #### [facility] [address] [place] [address] USAMCV (RBC) [Entitic vol]93.3 vPDwqzgx84-893AqqsdhnnqSycamore Medical CenterComment on above:Performed By: #### DIFF CBC, BMP #### [facility] [address] [place] [address] USAMean Corpuscular HGB Conc33.2 g/tJOkklur37.0-35.0Sy[facility]ore Medical CenterComment on above:Performed By: #### DIFF CBC, BMP #### [facility] [address] [place] [address] USAMetamyelocytes2 %High0-0[facility] Comment on above:Performed By: #### DIFF CBC, BMP #### [facility] [address] [place] [address] USAMonocytes/100 WBC (Bld)9 %Normal2-11Sy[facility]ore Medical CenterComment on above:Performed By: #### DIFF CBC, BMP #### [place] [address] USAMyelocytes1 %High0-0[facility] Comment on above:Performed By: #### DIFF CBC, BMP #### [facility] [address] [place] [address] USAPlatelet EstimateNormalNormalNoSt. Charles HospitalComment on above:Performed By: #### DIFF CBC, BMP #### [facility] [address] [place] [address] USAPlatelet mean volume (Bld) [Entitic vol]7.4 fLNormal 6.3-10.7FMercy HealthComment on above:Result Comment: PERFORMED BY: [place] [address] PATHOLOGIST ADMISSIONS REPRESENTATIVE GRZEGORZ DUMONT M.D.Performed By: #### DIFF CBC, BMP #### [facility] [address] [place] [address] USAPlatelet MorphologyNormalNormalCoshocton Regional Medical CenterComment on above:Result Comment: PERFORMED BY: [address] [address] PATHOLOGIST ADMISSIONS REPRESENTATIVE GRZEGORZ DUMONT M.D.Performed By: #### DIFF CBC, BMP #### [facility] [address] [place] [address] USAPlatelets (Bld) [#/Vol]363 10*3/fLZogdef606-092LjhrkklhpSycamore Medical CenterComment on above:Performed By: #### DIFF CBC, BMP #### [facility] [address] [place] [address] USARBC (Bld) [#/Vol]4.16 10*6/uLNormal3.60-5.00Sycamore Medical CenterComment on above:Performed By: #### DIFF CBC, BMP #### [facility] [address] [place] [address] USARBC morphology finding Nom (Bld)NormalNormalNormal [facility] Medical CenterComment on above:Performed By: #### DIFF CBC, BMP #### [facility] [address] [place] [address] USASegmented neutrophils/100 WBC (Bld)62 %Cuxabq67-86 [facility] Medical CenterComment on above:Performed By: #### DIFF CBC, BMP #### [facility] [address] [place] [address] USAWBC (Bld) [#/Vol]8.4 10*3/uLNormal3.8-11.6FMercy HealthComment on above:Performed By: #### DIFF CBC, BMP #### [place] [address] USAECG 12 lead ECGon 47-25-3139GXY 12 lead ECGASHTABULA [facility] [address] [place] [address] Electrocardiograph Report Signed Patient: Virgil Warner MR#: [id number] 52 : 1975 Acct:[id number] Age/Sex: 47 / F ADM Date: 09/21/22 Loc: PS Room: Type: [facility] Attending Dr: Shiraz Sherman MD Ordering [...] Signed By John Sanchez MD 1 11/22/21 1710NormalSycamore Medical CenterEosinophils Auto (Bld) [#/Vol]Ordered By: Shiraz Sherman on 50-94-8720Iuhmrdmbrms (Bld) [#/Vol]N/[facility] HospitalEosinophils/100 WBC Auto (Bld)Ordered By: Shiraz Sherman on 47-20-2275Jkrayhbabxe/100 WBC (Bld)N/[facility] Eosinophils/100 WBC Manual cnt (Bld)Ordered By: Shiraz Sherman on 09-21-2022 Eosinophils/100 WBC (Bld)7 %1-3FMercy HealthErythrocyte distribution width Auto (RBC) [Ratio]Ordered By: Shiraz Sherman on 09-21-2022 Erythrocyte distribution width (RBC) [Ratio]14.2 %11.9-15.3FMercy HealthEstimated glomerular filtration rate (GFR) non- Ordered By: Shiraz Sherman on 55-86-5996FCO/1.73 sq M.predicted among non-blacks MDRD (S/P/Bld) [Vol rate/Area]> 60 mL/MinSycamore Medical CenterGiant platelets/100 leukocytes [Ratio] in Blood by Manual countOrdered By: Shiraz Sherman on 80-56-8854Pfiyi platelets/100 WBC Manual cnt (Bld) [Ratio]2 /100{WBC} Sycamore Medical CenterHematocrit Auto (Bld) [Volume fraction]Ordered By: Shiraz Sherman on 33-14-8223Avugaovrsv (Bld) [Volume fraction]38.8 %34.0-46.4 [facility] Medical CenterHemoglobin [Mass/volume] in BloodOrdered By: Shiraz Sherman on 02-11-5231Mgrhqngmfg (Bld) [Mass/Vol]12.9 g/dL11.8-15.4FMercy HealthLeukocytes [#/volume] corrected for nucleated erythrocytes in Blood by Automated counOrdered By: Shiraz Sherman on 93-03-0065HMT corrected for nucl RBC Auto (Bld) [#/Vol]8.4 10*3/uL3.8-11.6FMercy HealthLipid Panelon 39-18-1234Wbmksjvqjzq [Mass/Vol]215 mg/dLHighNINF - 200 mg/dLBON Semnur PharmaceuticalsComment on above: Cholesterol Guidelines: <200 Desirable 200-240 Borderline >240 Undesirable Cholesterol in HDL [Mass/Vol]21 mg/dLLow40 - PINF mg/dLBON [employer] Comment on above: HDL Guidelines: <40 Undesirable 40-59 Borderline >59 Desirable Cholesterol.total/Cholesterol in HDL [Mass ratio]10.2 {ratio}HighNINF - 5BON Semn[employer] PharmaceuticalsInterpretation and review of laboratory resultsAbnormalBON Semnur PharmaceuticalsLDL Cholesterol0 - 130 mg/dLBON Semnur PharmaceuticalsComment on above:Calculation not valid for Triglyceride value greater than 400 mg/dL. Direct LDL reflexed LDL Guidelines: <100 Desirable 100-129 Near to/above Desirable 130-159 Borderline >159 Undesirable Direct (measured) LDL and calculated LDL are not interchangeable tests. Triglyceride [Mass/Vol]1567 mg/dLHighNINF - 150 mg/dLBON [employer] Comment on above: Triglyceride Guidelines: <150 Desirable 150-199 Borderline 200-499 High >499 Very high Based on AHA Guidelines for fasting triglyceride, June 2012. [place] Semnur PharmaceuticalsLymphocytes Auto (Bld) [#/Vol]Ordered By: Shiraz Sherman on 00-13-3626Ztahzdzqpid (Bld) [#/Vol]N/[facility] Lymphocytes/100 WBC Auto (Bld)Ordered By: Shiraz Sherman on 09-21-2022 Lymphocytes/100 WBC (Bld)N/[facility] HospitalLymphocytes/100 WBC Manual cnt (Bld)Ordered By: Shiraz Sherman on 59-80-4950Tjxfzqmuylw/100 WBC (Bld)15 %18-42[facility] CenterH Auto (RBC) [Entitic mass]Ordered By: Shiraz Sherman on 50-96-8894TFF (RBC) [Entitic mass]31.0 pg24.7-34.3FMercy HealthMCHC Auto (RBC) [Mass/Vol]Ordered By: Shiraz Sherman on 99-24-7433UGOW (RBC) [Mass/Vol]33.2 g/dL32.0-35.0Sycamore Medical CenterMCV Auto (RBC) [Entitic vol]Ordered By: Shiraz Sherman on 50-47-2845UIP (RBC) [Entitic vol]93.3 qQ98-368UtjltmhswSycamore Medical CenterMetamyelocytes/100 WBC Manual cnt (Bld)Ordered By: Shiraz Sherman on 71-15-6968Snhiblysckjpcw/100 WBC (Bld)2 %0-0Sy[facility] Medical CenterMicroalbumin, Uron 09-21-2022 Albumin/Creatinine DL <= 20 mg/L (24H U) [Mass ratio]mg/LNINF - 21 mg/LBON [facility]OSPITALAlbumin/Creatinine DL <= 20 mg/L (U) [Ratio]Can not be calculatedNIDOMINION HOSPITALCreatinine [Mass/Vol]80.3 mg/dL28.0 - 217.0 mg/dLBON [facility] HEALTHMonocytes Auto (Bld) [#/Vol]Ordered By: Shiraz Sherman on 20-97-7589Glgqeukjj (Bld) [#/Vol]N/[facility] HospitalMonocytes/100 WBC Auto (Bld)Ordered By: Shiraz Sherman on 60-74-2112Lhqjawcnh/100 WBC (Bld)N/[facility] Monocytes/100 WBC Manual cnt (Bld)Ordered By: Shiraz Sherman on 09-21-2022 Monocytes/100 WBC (Bld)9 %2-11Sycamore Medical CenterMyelocytes/100 WBC Manual cnt (Bld)Ordered By: Shiraz Sherman on 84-93-2491Jfqktpsjtk/100 WBC (Bld) 1 %0-0Sycamore Medical CenterNeutrophils Auto (Bld) [#/Vol]Ordered By: Shiraz Sherman on 74-05-3633Nwislmblhap (Bld) [#/Vol]NSt. Vincent HospitalNeutrophils/100 WBC Auto (Bld)Ordered By: Shiraz Sherman on 09-21-2022 Neutrophils/100 WBC (Bld)/[facility] HospitalNo Panel InformationOrdered By: Shiraz Sherman on 37-06-4338Xacsoqlll GFR ()> 60 mL/MinSycamore Medical CenterComment on above:GFR estimated reference range: According to KDOQI guidelines, <60 ml/min/1.73m2 is sufficient todiagnose a patient with chronic kidney disease.Pharmacy Creatinine Clearance (ChemN/[facility] HospitalNo Panel Informationon 11-64-4224TZQ [facility] HOSPITALNucleated erythrocytes [Presence] in Blood by Automated countOrdered By: Shiraz Sherman on 74-01-1689Uusgoawdn RBC Auto Ql (Bld)NSt. Vincent HospitalPlatelet adequacy [Presence] in Blood by Light microscopyOrdered By: Shiraz Sherman on 38-39-9867Eiyjpabrz LM Ql (Bld)[facility] HospitalPlatelet mean volume Auto (Bld) [Entitic vol] Ordered By: Shiraz Sherman on 83-00-5508Brfctrax mean volume (Bld) [Entitic vol]7.4 fL6.3-10.7FMercy HealthPlatelet morphology finding [Identifier] in BloodOrdered By: Shiraz Sherman on 22-85-0278Cdnqelef morphology finding Nom (Bld)NormalCoshocton Regional Medical CenterPlatelets Auto (Bld) [#/Vol]Ordered By: Shiraz Sherman on 01-94-7049Aullqiqta (Bld) [#/Vol]363 10*3/uT897-572CiyqbzpbhSycamore Medical CenterRBC Auto (Bld) [#/Vol]Ordered By: Shiraz Sherman on 25-04-9145WTJ (Bld) [#/Vol]4.16 10*6/uL3.60-5.00Sycamore Medical CenterRBC morphologyOrdered By: Shiraz Sherman on 59-32-4108UIM morphology finding Nom (Bld)NormalNormalSycamore Medical Center Segmented neutrophils/100 WBC Manual cnt (Bld)Ordered By: Shiraz Sherman on 14-85-2279Ovgliqcfv neutrophils/100 WBC (Bld)62 %50-70Marietta Osteopathic Clinicerum or plasma anion gap determinationOrdered By: Shriaz Sherman on 57-66-5843Bbuiu gap [Moles/Vol]14.4 mmol/L6.0-15.0Marietta Osteopathic Clinicerum or plasma calcium measurement (mass/volume)Ordered By: Shiraz Sherman on 78-20-8753Ihcjntu [Mass/Vol]10.0 mg/dL8.2-10.2FMercy Health Serum or plasma chloride measurement (moles/volume)Ordered By: Shiraz Sherman on 08-84-9516Qpbgftib [Moles/Vol]99 mmol/J53-616XejxgexjjSycamore Medical Center Serum or plasma glucose measurement (mass/volume)Ordered By: Shiraz Sherman on 88-89-0720Mhwnymz [Mass/Vol]270 mg/wX37-170HamykzhhsSycamore Medical Center Comment on above:ADA recommended reference rangeRandom Glucose Reference Range is dependent on time and content of last meal. Glucose of more than 200 mg/dL in a nonstressed, ambulatory subject supports the diagnosisof Diabetes Mellitus. Serum or plasma potassium measurement (moles/volume)Ordered By: Shiraz Sherman on 35-70-8398Xyrvrloko [Moles/Vol]4.9 mmol/L3.5-5.1FUniversity Hospitals Portage Medical Centererum or plasma sodium measurement (moles/volume)Ordered By: Shiraz Sherman on 38-38-4019Cqfjgl [Moles/Vol]132 mmol/N655-909UkfqwbqvbSycamore Medical Center Serum or plasma total carbon dioxide measurement (moles/volume)Ordered By: Shiraz Sherman on 83-49-9153SR9 [Moles/Vol]23.5 mmol/L22.0-30.0Marietta Osteopathic Clinicerum or plasma urea nitrogen measurement (mass/volume)Ordered By: Shiraz Sherman on 86-68-0429Ujes nitrogen [Mass/Vol]20 mg/dL9-23Sycamore Medical CenterWBC Auto (Bld) [#/Vol]Ordered By: Shiraz Sherman on 18-43-6160LFO (Bld) [#/Vol]8.4 10*3/uL3.8-11.6FMercy HealthPOINT OF CARE GLUCOSEon 61-13-0580Zyzawqe [Mass/Vol]151 mg/dLCritically sdau04-987AfaCleveland Clinic Akron GeneralComment on above:Performed By: #### POCGLUC #### [facility] [address] [place], [place] [address] Dr. Murillo [facility] GLUCOSEon 16-96-2743Caggodq [Mass/Vol]184 mg/dL Critically skjr59-994ImlCleveland Clinic Akron GeneralComment on above:Performed By: #### POCGLUC ####[facility] [address] [place], [place] [address]Zi. Chidi [facility] GLUCOSEon 33-16-3226Fqlenmt [Mass/Vol]95 mg/dL Gphdet86-703UjtCleveland Clinic Akron GeneralComment on above:Performed By: #### POCGLUC ####[facility] [address] [place], [place] [address]Ei. Chidi [facility] Metabolic Panelon 62-43-0818Isxcu gap [Moles/Vol]18 mmol/LHigh9 - 17 mmol/LBON [facility] MEDICAL CENTEREggrock PartnersCalcium [Mass/Vol]9.6 mg/dL8.6 - 10.4 mg/dL [facility] Tang Song HEALTHChloride [Moles/Vol]98 mmol/L98 - 107 mmol/LBON [facility]IONAL MEDICAL CENTEREggrock PartnersCO2 [Moles/Vol]22 mmol/L20 - 31 mmol/LBON [facility] SAN DIEGOGenoSpace Creatinine [Mass/Vol]0.91 mg/dLHigh0.50 - 0.90 mg/dLBON [facility] [employer]Erid[employer] GFR/1.73 sq M.predicted MDRD (S/P/Bld) [Vol rate/Area]- PINFBON NAVAL MEDICAL CENTER SAN DIEGOBrickell Biotech [facility] HOSPITALComment on above: Effective Jun 28, 2022 [...] that affects renal tubular secretion. Glucose [Mass/Vol]207 mg/cSTwel11 - 99 mg/dLBON [facility] Interpretation and review of laboratory resultsAbnormalBON [facility] Potassium [Moles/Vol]4.8 mmol/L3.7 - 5.3 mmol/LBON [facility]OWN HOSPITALSodium [Moles/Vol]138 mmol/L135 - 144 mmol/LBON [facility] HOSPITALUrea nitrogen (BldV) [Mass/Vol]28 mg/dLHigh6 - 20 mg/dLBON [facility]DLETOWN HOSPITALUrea nitrogen/Creatinine (Bld) [Mass ratio]47Wwcg0 - 20BON [facility] BENEDICT HEALTH CENTERCBC with Auto Differentialon 83-83-5380Ctfzempp Eos #0.35BON [facility] HOSPITALAbsolute Immature Granulocyte0.10[facility] Absolute Lymph #3.09BON [facility] HOSPITALAbsolute Guthrie #0.73BON [facility]OSPITALBasophils (Bld) [#/Vol]0.09 10*3/uLBON [facility] HOSPITALBasophils/100 WBC (Bld)1 %0 - 2 %[facility]OSPITALEosinophils/100 WBC (Bld)4 %1 - 4 % [facility] HOSPITALHematocrit (Bld) [Volume fraction]39.6 %36.3 - 47.1 %[facility] HOSPITALHemoglobin (Bld) [Mass/Vol]12.8 g/dL11.9 - 15.1 g/dLBON [facility]LETOWN HOSPITALImmature granulocytes/100 WBC (Bld)1 %Rjbb4SQJ [facility]OSPITALInterpretation and review of laboratory resultsAbnormalBON MIDDLETOWN HOSPITALLymphocytes/100 WBC (Bld)36 %24 - 43 %BON [facility]ENTERH (RBC) [Entitic mass]31.3 pg25.2 - 33.5 pgBON [facility] CAN[facility]ENTERHC (RBC) [Mass/Vol] 32.3 g/dL28.4 - 34.8 g/dLBON MIDDLETOWN HOSPITALMCV (RBC) [Entitic vol]96.8 fL 82.6 - 102.9 fLSENTARA VIRGINIA BEACH GENERAL HOSPITALMonocytes/100 WBC (Bld)9 %3 - 12 %[facility] HOSPITALNRBC Automated0.00.0 per 100 WBCSENTARA VIRGINIA BEACH [facility]AL [facility]ITAL Platelet distribution width (Bld) [Ratio]13.2 %11.8 - 14.4 %[facility] HOSPITALPlatelet mean volume (Bld) [Entitic vol]8.9 fL8.1 - 13.5 fLBON [facility] HEALTHPlatelets (Bld) [#/Vol]368 10*3/uLBON SECOCHSNER MEDICAL CENTER HEALTHRBC (Bld) [#/Vol]4.09 10*6/uL3.95 - 5.11 m/uLSENTARA VIRGINIA BEACH GENERAL HOSPITALSegmented neutrophils/100 WBC (Bld)49 %36 - 65 %[facility] HOSPITALSegs Absolute4.20 [facility] HOSPITALWBC (Bld) [#/Vol]8.6 10*3/uLBON SECOUTAGAMIE COUNTY HEALTH CENTERD-Dimer, Quantitativeon 34-75-0293Q-Dimer, Quant0.39[facility]AL HOSPITALComment on above: When combined with a low [...] more prevalent in patients with distal DVT. [facility] AT DANVERSGoowy [facility] HOSPITALTroponinon 89-09-1138Gzpuwzsblcmrma and review of laboratory resultsAbnormalNEW ENGLAND REHABILITATION HOSPITAL AT DANVERSGoowy [facility] HOSPITALTroponin, High Yhlabcpzgkm45 ng/LHigh0 - 14 ng/LBON [facility]OSPITALComment on above: High Sensitivity Troponin values cannot be compared with other Troponin methodologies. Patients with high levels of Biotin oral intake (i.e >5mg/day) may have falsely decreased Troponin levels. Samples collected within 8 hours of biotin intake may require additional information for diagnosis. [facility] HOSPITALInterpretation and review of laboratory resultsAbnormal [facility] Tang Song [facility] Hospitaloponin, High Fdiphhwvkqq36 ng/LHigh0 - 14 ng/LBON [facility] Tang Song [facility] HOSPITALComment on above: High Sensitivity Troponin values cannot be compared with other Troponin methodologies. Patients with high levels of Biotin oral intake (i.e >5mg/day) may have falsely decreased Troponin levels. Samples collected within 8 hours of biotin intake may require additional information for diagnosis. [facility] DANVERSGoowy [facility]OSPITALXR CHEST PORTABLEon 51-39-6789Lf evidence of acute cardiopulmonary process. Large body habitus. [facility] CONSOLIDATEDEXAMINATION: ONE XRAY VIEW OF THE [...] is present over the lower thoracic spine. [facility] Cristina Cabrera MD - 08/06/2022 EXAMINATION: [...] of acute cardiopulmonary process. Large body habitus. [employer] Phone: radiology Study observation (narrative)[employer] Phone: xr CHEST PORTABLEOrdered By: Cristina English on 33-71-6362SDF [email or web address] Phone: us LIVERon 85-26-4534Ndacr shows increased echogenicity suggesting hepatic steatosis without focal lesion. With otherwise unremarkable exam [facility] CONSOLIDATEDEXAMINATION: RIGHT UPPER QUADRANT ULTRASOUND 08/04/2022 [...] No evidence of right upper quadrant ascites. [facility] Ruddy Andrews DO - 08/04/2022 EXAMINATION: [...] without focal lesion. With otherwise unremarkable exam [employer] Phone: radiology Study observation (narrative)[employer] Work Phone: US LIVEROrdered By: Ruddy Mallory on 92-03-6092ESN [employer] Work Phone: Ceruloplasminon 63-44-6080Nipbmmrkmesgn41 mg/dL16 - 45 mg/dLBON Semnur PharmaceuticalsUNITED STATES [facility] Semnur PharmaceuticalsHepatitis B Surface Antibodyon 06-17-9330FYT surface Ab (S) [Titer]<3.50NINFUNITED STATES AIR FORCE [facility] [employer] Comment on above: REFERENCE RANGE: <10.0 NON-REACTIVE/NOT IMMUNE >=10.0 REACTIVE/IMMUNE WikiRealtyCBC with Auto Differentialon 72-86-6418Fufhuign Eos # 0.32BON Semnur PharmaceuticalsAbsolute Immature Granulocyte0.07BON Semnur PharmaceuticalsAbsolute Lymph #3.05BON SECEggrock PartnersAbsolute Guthrie #0.53[facility] Semnur PharmaceuticalsBasophils (Bld) [#/Vol]0.06 10*3/uLBON [employer] Basophils/100 WBC (Bld)1 %0 - 2 %[facility] Semn[employer] PharmaceuticalsEosinophils/100 WBC (Bld)4 %1 - 4 %WikiRealtyHematocrit (Bld) [Volume fraction]38.1 % 36.3 - 47.1 %WikiRealtyHemoglobin (Bld) [Mass/Vol]11.9 g/dL11.9 - 15.1 g/dLBON Semn[employer] PharmaceuticalsImmature granulocytes/100 WBC (Bld)1 %Tlns7DBB [employer]nur PharmaceuticalsInterpretation and review of laboratory resultsAbnormalUNITED STATES AIR [facility] Semnur PharmaceuticalsLymphocytes/100 WBC (Bld)40 %24 - 43 %WikiRealtyMCH (RBC) [Entitic mass]31.1 pg25.2 - 33.5 pgBON SECMARY RUTAN HOSPITALMCHC (RBC) [Mass/Vol]31.2 g/dL28.4 - 34.8 g/dLBON SECMARY RUTAN HOSPITALMCV (RBC) [Entitic vol]99.5 fL82.6 - 102.9 fLBON [facility]OSPITALMonocytes/100 WBC (Bld)7 %3 - 12 %BON [facility] HOSPITALNRBC Automated0.00.0 per 100 WBCBON MIDDLETOWN HOSPITALPlatelet distribution width (Bld) [Ratio]13.7 %11.8 - 14.4 % BON [facility] HOSPITALPlatelet mean volume (Bld) [Entitic vol]8.9 fL8.1 - 13.5 fLBON [facility] HEALTHPlatelets (Bld) [#/Vol]357 10*3/uLBON [facility]LETOWN HOSPITALRBC (Bld) [#/Vol]3.83 10*6/uLLow3.95 - 5.11 m/uLSENTARA VIRGINIA [facility]ACH [facility]AL [facility]PITAL Segmented neutrophils/100 WBC (Bld)47 %36 - 65 %[facility]ALSegs Absolute3.61B[facility]PITALWBC (Bld) [#/Vol]7.6 10*3/uLBON [facility] CENTERComprehensive Metabolic Panel with Bilirubin on [id number] [Mass/Vol]4.6 g/dL3.5 - 5.2 g/dLB[facility] Albumin/Globulin [Mass ratio]1.8 {ratio}1.0 - 2.5B[facility]OSPITALALP (Bld) [Catalytic activity/Vol]53 U/L35 - 104 U/LBON [facility] HEALTHALT [Catalytic activity/Vol]36 U/LHigh5 - 33 U/[facility]ITALAnion gap [Moles/Vol]13 mmol/L9 - 17 mmol/LBON [facility] HEALTHAST [Catalytic activity/Vol]37 U/LHighNINF - 32 U/LB[facility]ITALBilirubin [Mass/Vol] 0.2 mg/dLLow0.3 - 1.2 mg/dLBON [facility]OSPITALBilirubin, IndirectCan not be calculated0.00 - 1.00 mg/dLBON MID[facility]LETOWN HOSPITALBilirubin.indirect [Mass/Vol]mg/dLNINF - 0.31 mg/dLBON [facility] HOSPITALCalcium [Mass/Vol]9.2 mg/dL8.6 - 10.4 mg/dLBON [facility] HOSPITALChloride [Moles/Vol]102 mmol/L98 - 107 mmol/LBON [facility] HOSPITALCO2 [Moles/Vol]24 mmol/L20 - 31 mmol/LBON [facility]OSPITALCreatinine [Mass/Vol]0.88 mg/dL0.50 - 0.90 mg/dLBON [facility]LETOWN HOSPITALGFR/1.73 sq M.predicted MDRD (S/P/Bld) [Vol rate/Area]- PINFBON [facility]LETOWN HOSPITALComment on above: Effective Jun 28, 2022 [...] that affects renal tubular secretion. Glucose [Mass/Vol]116 mg/aYYnkb02 - 99 mg/dLBON [facility] Interpretation and review of laboratory resultsAbnormSpotsylvania Regional Medical Center Potassium [Moles/Vol]4.9 mmol/L3.7 - 5.3 mmol/LBON [facility]OWN HOSPITALProtein [Mass/Vol]7.2 g/dL6.4 - 8.3 g/dLBON [facility]LETOWN HOSPITALSodium [Moles/Vol]139 mmol/L135 - 144 mmol/LBON [facility] HOSPITALUrea nitrogen (BldV) [Mass/Vol]28 mg/dLHigh6 - 20 mg/dLBON AVERA [address]. [facility] HEALTH CENTERPOINT OF CARE GLUCOSEon 71-01-6277Ovqrrkv [Mass/Vol]106 mg/xRAkukon44-912Byh [facility] HospitalComment on above:Performed By: #### POCGLUC #### [facility] [address] [address] [address] 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 !!107 !0.8 ! ! +---------++--------+-----+ ++--------+-----+ +[employer] Phone: vl LOWER EXTREMITY ARTERIAL SEGMENTAL PRESSURES W PPG Ordered By: Ruddy Mallory on 10-95-0424VBU [email or web address] Phone: vl LOWER EXTREMITY ARTERIAL SEGMENTAL PRESSURES W PPG on 98-04-0522Fxbirmtup Study observation (narrative)BON [email or web address] Phone: creatine Kinaseon 83-40-2405WK [Catalytic activity/Vol]274 U/JDvzz14-930KneyyrnouSycamore Medical CenterComment on above: Result Comment: PERFORMED BY: [place] [address] PATHOLOGIST ADMISSIONS REPRESENTATIVE GRZEGORZ DUMONT M.D.Performed By: #### CK #### [facility] [address] [place] [address] [place] #### SJOGRENS #### [facility] ,Sjogrens Anti-SSA/SSBon 19-93-5782LX-A/Ro Sjogrens Antibody<0.2Ccawtr9.0-0.9 [facility] Medical CenterComment on above:Performed By: #### CK #### [facility] [address] [place] [address] [place] #### SJOGRENS #### [facility] ,SS-B/La Sjogrens Antibody<0.9Koedzu0.0-0.9[facility] Comment on above:Result Comment: Performed at: [facility] [address] [id number] Window Shade Ring Coverer: Chandana Oliveros PhD, Phone: [phone] PERFORMED BY: [place] [address] PATHOLOGIST ADMISSIONS REPRESENTATIVE GRZEGORZ DUMONT M.D.Performed By: #### CK #### [facility] [address] [place] [address] [place] #### SJOGRENS #### [facility] ,XR hand BI 2Von 73-44-3196SM hand BI 2[facility] [address] [place] [address] XRay Report Signed Patient: Virgil Warner MR#: [id number] 52 : 1975 Acct:[id number] Age/Sex: 47 / F ADM Date: 03/02/22 Loc: ICXD Room: Type: [facility] Attending Dr: Tyree Hidalgo MD Ordering Provider: [...] Edwin White M.D.03/02/2022 4:09 PM Dictation Location: [place] [address] Transcribed By: [facility] 03/02/22 1609 Dictated By: Edwin White DO 03/02/22 1608 Signed By: 03/02/22 1609NoC[facility] MARISOL DIGITAL SCREEN BILATERALOrdered By: Vivian Lemos on 01-26-8782Kc mammographic evidence of malignancy. BI-RADS 1 BIRADS: BIRADS - CATEGORY 1 Negative, no evidenceof malignancy. Normal interval follow-up is recommended in 12 months. OVERALL ASSESSMENT - NEGATIVEA letter of notification will be sent to the patient regarding the results. The [employer] of[employer] recommends annual mammograms for women 40 years and older.[place] Phone: eXAMINATION: SCREENING DIGITAL BILATERAL MAMMOGRAM WITH TOMOSYNTHESIS, 05/15/2021 TECHNIQUE: Screening mammography was performed with tomosynthesis including MLO and CC views of the bilateral breasts.Computer aided detection was used for the interpretation of this exam. COMPARISON: 03/12/2016 HISTORY: Screening. FINDINGS: The breast tissue is composed of scattered fibroglandular tissue. There is no suspicious mass, suspicious microcalcification, or area of architectural distortion.[place] Phone: [place] Phone: US FIBROSCANon 40-77-7738HP FIBROSCANVelocity Controlled Transient Elastography (Fibroscan) Family Service Caseworker: Ameena Crisostomo Attending: Leah Martins MD ? [...] S2-3. Clinical correlation indicated Leah Martins MD [facility] Interpreted by: Leah Martins MD Signed by: Leah Martins MD 04/14/21 Final resultNoRangely District HospitalFerritinOrdered By: Claudia Willett on 22-49-7032Jeiyfbfe192 ug/LHigh13 - 150 ug/LMercy SepSensor Work Phone: Iron and TIBCOrdered By: Claudia Willett on 03-12-2021 Iron [Mass/Vol]71 ug/dL37 - 145 ug/dLOomba Phone: Iron Njyyzomwkk06 %Low20 - 55 %[place] Phone: TIBC412 ug/dL250 - 450 ug/dLOomba Phone: UIBC341 ug/dL112 - 347 ug/dLLakehealth Beachwood Medical CenterNemedia Phone: No Panel InformationOrdered By: Claudia Willett on 89-68-2556Qcgqwlrkyilkgg and review of laboratory resultsAbnormalLakehealth Beachwood Medical CenterNemedia Phone: [facility] [employer] Phone: cBCOrdered By: Claudia Willett on 85-87-5592Iezckjwlxs (Bld) [Volume fraction]45.2 %36.3 - 47.1 %[place] Phone: Hemoglobin.gastrointestinal spec 1 Ql (Stl)14.1 g/dL 11.9 - 15.1 g/dLLakehealth Beachwood Medical CenterNemedia Phone: MCH (RBC) [Entitic mass]30.2 pg25.2 - 33.5 pgLakehealth Beachwood Medical CenterNemedia Phone: MCHC (RBC) [Mass/Vol]31.2 g/dL28.4 - 34.8 g/dLLakehealth Beachwood Medical CenterNemedia Phone: MCV (RBC) [Entitic vol]96.8 fL82.6 - 102.9 fLLakehealth Beachwood Medical CenterNemedia Phone: NRBC Automated0.00.0 per 100 WBCLakehealth Beachwood Medical CenterNemedia Phone: platelet distribution width (Bld) [Ratio]12.5 %11.8 - 14.4 %[facility] HospitalWellRight Phone: platelet mean volume (Bld) [Entitic vol]9.0 fL8.1 - 13.5 [facility] Orth[facility] CenterNemedia Phone: platelets (Bld) [#/Vol]372 10*3/uLLakehealth Beachwood Medical CenterNemedia Phone: RBC (Bld) [#/Vol]4.67 10*6/uL3.95 - 5.11 m/[place]rakesboroNemedia Phone: WBC (Bld) [#/Vol]7.5 10*3/uLLakehealth Beachwood Medical CenterNemedia Phone: [facility] CenterNemedia Phone: comprehensive Metabolic PanelOrdered By: Claudia Willett on 58-61-0545Rldqvqg [Mass/Vol]4.6 g/dL3.5 - 5.2 g/dLLakehealth Beachwood Medical CenterNemedia Phone: Rlbumin/Globulin [Mass ratio]1.8 {ratio}[facility] HospitalWellRight Phone: JLP (Bld) [Catalytic activity/Vol]88 U/L35 - 104 U/L [facility] HospitalWellRight Phone: ALT [Catalytic activity/Vol]52 U/LHigh5 - 33 U/LMmercy health anderson hospitalWellRight Phone: Rnion gap [Moles/Vol]12 mmol/L9 - 17 mmol/LMRGM Group Work Phone: GST [Catalytic activity/Vol]45 U/LHigh<32MerNemedia Phone: Xilirubin [Mass/Vol]0.32 mg/dL0.3 - 1.2 mg/dLLakehealth Beachwood Medical CenterNemedia Phone: Palcium [Mass/Vol]9.8 mg/dL8.6 - 10.4 mg/dLLakehealth Beachwood Medical CenterNemedia Phone: Mhloride [Moles/Vol]102 mmol/L98 - 107 mmol/LMRGM Group Work Phone: XO2 [Moles/Vol]25 mmol/L20 - 31 mmol/LMercy [employer] Work Phone: Vreatinine [Mass/Vol]0.68 mg/dL0.50 - 0.90 mg/dLLakehealth Beachwood Medical CenterNemedia Phone: Free PSA/Total PSA [Mass fraction]7.2 g/dL6.4 - 8.3 g/dLLakehealth Beachwood Medical CenterNemedia Phone: GFR >60>60 mL/minWyandot Memorial Hospital [employer] Phone: GFR Non->60>60 mL/minWyandot Memorial Hospital SepSensor Work Phone: Glucose [Mass/Vol]231 mg/oDWpij61 - 99 mg/dLWyandot Memorial Hospital [employer] Phone: Interpretation and review of laboratory results AbnormalWyandot Memorial Hospital SepSensor Work Phone: potassium [Moles/Vol]4.7 mmol/L3.7 - 5.3 mmol/LMercy [employer] Work Phone: sodium [Moles/Vol]139 mmol/L135 - 144 mmol/LMercy [employer] Work Phone: Urea nitrogen (BldV) [Mass/Vol]24 mg/dLHigh6 - 20 mg/dLWyandot Memorial Hospital [employer] Phone: Urea nitrogen/Creatinine (Bld) [Mass ratio]35HighWyandot Memorial Hospital SepSensor Work Phone: [facility] [employer] Phone: Hepatitis B Core Antibody, TotalOrdered By: Claudia Willett on 64-14-9912Bta B Core Total AbNon-ReactiveNONREACTIVEWyandot Memorial Hospital [employer] Phone: Hepatitis B Surface AntigenOrdered By: Claudia Willett on 42-12-2034Wpymitufg B Surface AgNon-ReactiveNONREACTIVEWyandot Memorial Hospital SepSensor Work Phone: Hepatitis C AntibodyOrdered By: Claudia Willett on 69-31-2746Mypsgjhzm C AbNon-ReactiveNONREACTIVELakehealth Beachwood Medical CenterNemedia Phone: comment on above: The hepatitis C [...] Chemistry - challengeOrdered By: Claudia Willett on 12-53-9927MZV/1.73 sq M.predicted MDRD (S/P/Bld) [Vol rate/Area][place] Phone: comment on above:Average GFR for 40-49 years old: 99 mL/min/1.73sq m Chronic Kidney Disease: <60 mL/min/1.73sq m Kidney failure: <15 mL/min/1.73sq m eGFR calculated using average adult body mass. Additional eGFR calculator available at: http://www.SCI Marketview/multiple_crcl_2012.htm Stage 1: Some kidney damage normal GFR Stage 2: Mild kidney damage GFR 60-89 Stage 3: Moderate kidney damage GFR 30-59 Stage 4: Severe kidney damage GFR 15-29 Stage 5: Severe kidney damage GFR <15 ESRD - chronic treatment by dialysis or transplant No Panel InformationOrdered By: Claudia Willett on 35-90-0174IwnacOomba Phone: Hepatic Function PanelOrdered By: Vivian Lemso on 89-12-4855Avcutzy [Mass/Vol]4.3 g/dL3.5 - 5.2 g/dLOomba Phone: albumin/Globulin [Mass ratio]1.3 {ratio}[place] Phone: aLP (Bld) [Catalytic activity/Vol]102 U/L35 - 104 U/L [place] Phone: aLT [Catalytic activity/Vol]34 U/LHigh5 - 33 U/LMmercy health anderson hospitalWellRight Phone: aST [Catalytic activity/Vol]24 U/L<32[place] Phone: bilirubin [Mass/Vol]0.24 mg/dLLow0.3 - 1.2 mg/dLOomba Phone: bilirubin, IndirectCANNOT BE CALCULATED0.00 - 1.00 mg/dLOomba Phone: bilirubin.indirect [Mass/Vol]mg/dL<0.31 mg/dLMercy Health Work Phone: [...] UA2 TO 5[facility] Work Phone: Glucose, Ur1+AbnormalNEGATIVELakehealth Beachwood Medical Centercy Health Work Phone: Interpretation and review of [...] UANOT REPORTED0 /HPFMercy Health Work Phone: specific Fernley, UA>1.030HighMercy Health Work Phone: Trichomonas, UANOT REPORTEDNoneMercy Health Work Phone: Turbidity UACLEARCLEARMercy Health Work Phone: Urinalysis CommentsNOT REPORTEDMercy Health Work Phone: Urine HgbNegativeNEGATIVEMercy Health Work Phone: Urobilinogen, UrineNormalNormalMercy Health Work Phone: WBC, UA0 TO 2[facility] Work Phone: Yeast, UANOT REPORTEDNoneMercy Health Work Phone: XR ABDOMEN (KUB) (SINGLE AP VIEW)Ordered By: Meghan León on 34-30-7383Tyezaadlzr of a very small calcification over the lower pole of the left kidney. Probable hepatomegaly. No evidence of obstructive bowel process.[place] Phone: eXAMINATION: ONE SUPINE XRAY VIEW(S) OF [...] with battery pack over the left iliac wing.[place] Phone: efrida cj Incoming Radiant Results From [employer] - 01/27/2021 1:29 PM EDT EXAMINATION: ONE [...] hepatomegaly. No evidence of obstructive bowel process. [place] Phone: ct LUMBAR SPINE W CONTRASTOrdered By: Jasper Cleveland on 44-97-0163Guntfkv disc bulges at L4-5 and L5-S1. No significant focal disc protrusion or stenosis is appreciated. Spinal stimulator device.[place] Phone: eXAMINATION: CT OF THE LUMBAR SPINE [...] sac. No significant focal disc protrusion is detected.[facility] ([facility]) Work Phone: efrida, [facility] Incoming Radiant Results From [employer] - 01/20/2021 3:43 PM EDT EXAMINATION: CT [...] or stenosis is appreciated. Spinal stimulator device. [place] Phone: lipid Panelon 74-68-1694Xovawjafeck [Mass/Vol]127 mg/dL<200[place], KYComment on above: Cholesterol Guidelines: <200 Desirable 200-240 Borderline >240 Undesirable Cholesterol in HDL [Mass/Vol]28 mg/dLLow>40[place], KYComment on above: HDL Guidelines: <40 Undesirable 40-59 Borderline >59 Desirable Cholesterol in LDL [Mass/Vol]31 mg/dL0 - 130 mg/dLEx[place], KYComment on above: LDL Guidelines: <100 Desirable 100-129 Near to/above Desirable 130-159 Borderline >159 Undesirable Direct (measured) LDL and calculated LDL are not interchangeable tests. Cholesterol in VLDL [Mass/Vol]NOT REPORTEDHigh1 - 30 mg/dLEx[place], [place] Cholesterol.total/Cholesterol in HDL [Mass ratio]4.5 {ratio}<5[place], KYInterpretation and review of laboratory resultsAbnormalEx[place], [place] Triglyceride [Mass/Vol]340 mg/dLHigh<150[place], KYComment on above: Triglyceride Guidelines: <150 Desirable 150-199 Borderline 200-499 High >499 Very high Based on AHA Guidelines for fasting triglyceride, June 2012. CT HEAD WO CONTRASTon 86-25-8936Vt acute intracranial abnormality.[place], KYEXAMINATION: CT OF THE HEAD WITHOUT CONTRAST [...] abnormality of the visualized skull or soft tissues.Zend TechnologiesBee cj Incoming Radiant Results From [employer] - 07/25/2020 12:02 PM EDT EXAMINATION: CT [...] soft tissues. IMPRESSION: No acute intracranial abnormality. MonetateXR ABDOMEN (KUB) (SINGLE AP VIEW)on . No renal or ureteral calculi identified. 2. Mild constipation.Zend TechnologiesCONYERS, [place] EXAMINATION: ONE SUPINE XRAY VIEW(S) OF [...] the colon and rectum. No acute osseous abnormality.Zend TechnologiesBee Mhcj Incoming Radiant Results From [employer] - 01/25/2020 10:09 PM EDT EXAMINATION: ONE [...] or ureteral calculi identified. 2. Mild constipation. [facility], [place]C-Reactive Proteinon 32-14-6054ZQP [Mass/Vol]2.8 mg/L0 - 5 mg/[facility], KYCKon 38-81-1927Eywhb CK107 U/L26 - 192 U/[facility], OKHemoglobin A1Con 62-36-0544Ujgjdum [Mass/Vol]263 mg/dLCleveland Clinic [facility], [place] Comment on above:The ADA and AACC recommend providing the estimated average glucose result to permit better patient understanding of their HBA1c result. HbA1c (Bld) [Mass fraction]10.8 %High4.8 - 5.9 %[facility], [place] Interpretation and review of laboratory resultsAbnormalC[facility] Clinic [facility], KYIgAon 64-97-5730NvC [Mass/Vol]225 mg/dL70 - 400 mg/dLCleveland Clinic [facility], KYIgGon 53-70-7471BtA [Mass/Vol]768 mg/dL700 - 1600 mg/dLC[facility] Clinic [facility], KYIgMon 11-75-1517OuM [Mass/Vol]97 mg/dL40 - 230 mg/dLCleveland Clinic [facility], OKLactate Dehydrogenaseon 65-37-9080DJ970 U/L135 - 214 U/[facility], [place] Sedimentation Rateon 27-88-8778Iox Rate14 mm0 - 20 mmC[facility] Clinic [facility], KYT4on 41-01-7166R9, Total6.7 ug/dL4.5 - 12 ug/dLCleveland Clinic [facility], KYT4, Freeon 37-78-4063Vcwtribqx, Free1.02 ng/dL0.93 - 1.7 ng/dLCleveland Clinic [facility], OKTSH without Reflexon 98-80-9536NPA Qn0.70 m[IU]/[facility], OKALTOrdered By: Flip Dodson on 59-43-3422JPQ [Catalytic activity/Vol]26 U/L5 - 33 U/[facility] Work Phone: aSTOrdered By: Flip Dodson on 69-73-9407UCQ [Catalytic activity/Vol]20 U/L<32MerMiria Systems Work Phone: amylaseOrdered By: Flip Dodson on 93-45-9238Zzehkly [Catalytic activity/Vol]45 U/L28 - 100 U/LMercy [employer] Work Phone: basic Metabolic PanelOrdered By: Flip Dodson on 95-77-2476Izxab gap [Moles/Vol]17 mmol/L9 - 17 mmol/LMercy Health Work Phone: bun/Cre Hlgkg70FrdwSmzfw [employer] Work Phone: calcium [Mass/Vol]9.6 mg/dL8.6 - 10.4 mg/dLWyandot Memorial Hospital SepSensor Work Phone: chloride [Moles/Vol]96 mmol/LLow98 - 107 mmol/LMercy [employer] Work Phone: cO2 [Moles/Vol]22 mmol/L20 - 31 mmol/LMercy [employer] Work Phone: creatinine [Mass/Vol]0.63 mg/dL0.5 - 0.9 mg/dLLakehealth Beachwood Medical CenterMiria Systems Work Phone: GFR >60>60 mL/minLakehealth Beachwood Medical CenterMiria Systems Work Phone: GFR CommentWyandot Memorial Hospital SepSensor Work Phone: comment on above:Average GFR for 40-49 years old: 99 mL/min/1.73sq m Chronic Kidney Disease: <60 mL/min/1.73sq m Kidney failure: <15 mL/min/1.73sq m eGFR calculated using average adult body mass. Additional eGFR calculator available at: http://www.SCI Marketview/multiple_crcl_2012.htm GFR Non->60>60 mL/minLakehealth Beachwood Medical CenterMiria Systems Work Phone: GFR StagingMerNemedia Phone: comment on above:Stage 1: Some kidney damage normal GFR Stage 2: Mild kidney damage GFR 60-89 Stage 3: Moderate kidney damage GFR 30-59 Stage 4: Severe kidney damage GFR 15-29 Stage 5: Severe kidney damage GFR <15 ESRD - chronic treatment by dialysis or transplant Glucose [Mass/Vol]389 mg/uHYwnw13 - 99 mg/dLLakehealth Beachwood Medical CenterNemedia Phone: Interpretation and review of laboratory results AbnormalLakehealth Beachwood Medical CenterNemedia Phone: potassium [Moles/Vol]4.4 mmol/L3.7 - 5.3 mmol/LMmercy health anderson hospitalafterBOT Work Phone: sodium [Moles/Vol]135 mmol/L135 - 144 mmol/LMmercy health anderson hospitaly [employer] Phone: Urea nitrogen [Mass/Vol]16 mg/dL6 - 20 mg/dLLakehealth Beachwood Medical CenterNemedia Phone: cBC Auto DifferentialOrdered By: Flip Dodson on 22-70-6687Xbsiryxh Eos #0.24L[facility] Beachwood Medical CenterNemedia Phone: absolute Immature Granulocyte0.10L[facility] Beachwood Medical CenterNemedia Phone: absolute Lymph #3.09L[facility] Beach[facility] Medical CenterNemedia Phone: absolute Guthrie #0.50L[facility]health Beachwood Medical CenterNemedia Phone: basophils (Bld) [#/Vol]0.09 10*3/uLLakehealth Beachwood Medical CenterNemedia Phone: basophils/100 WBC (Bld)1 %0 - 2 %[place] Phone: differential TypeNOT REPORTEDLakehealth Beachwood Medical CenterNemedia Phone: eosinophils/100 WBC (Bld)3 %1 - 4 %[place] Phone: erythrocyte distribution width (RBC) [Ratio]11.7 %Low 11.8 - 14.4 %[place] Phone: Hematocrit (Bld) [Volume fraction]45.7 %36.3 - 47.1 % [place] Phone: Hemoglobin (Bld) [Mass/Vol]14.4 g/dL11.9 - 15.1 g/dL [facility] HospitalWellRight Phone: Immature granulocytes/100 WBC (Bld)1 %Vymh6XnfbsNemedia Phone: Interpretation and review of laboratory results AbnormalLakehealth Beachwood Medical CenterNemedia Phone: lymphocytes/100 WBC (Bld)39 %24 - 43 %[place] Phone: MCH (RBC) [Entitic mass]30.4 pg25.2 - 33.5 pgLakehealth Beachwood Medical CenterNemedia Phone: MCHC (RBC) [Mass/Vol]31.5 g/dL28.4 - 34.8 g/dLLakehealth Beachwood Medical CenterNemedia Phone: MCV (RBC) [Entitic vol]96.4 fL82.6 - 102.9 fLLakehealth Beachwood Medical CenterNemedia Phone: Monocytes/100 WBC (Bld)6 %3 - 12 %[place] Phone: NRBC Automated0.00.0 per 100 WBCLakehealth Beachwood Medical CenterNemedia Phone: platelet EstimateNOT REPORTEDLakehealth Beachwood Medical CenterNemedia Phone: platelet mean volume (Bld) [Entitic vol]9.1 fL8.1 - 13.5 fLLakehealth Beachwood Medical CenterNemedia Phone: Platelets (Bld) [#/Vol]388 10*3/uLLakehealth Beachwood Medical CenterNemedia Phone: RBC (Bld) [#/Vol]4.74 10*6/uL3.95 - 5.11 m/DrakesboroNemedia Phone: rBC morphology finding Nom (Bld)NOT REPORTEDOomba Phone: segmented neutrophils/100 WBC (Bld)50 %36 - 65 %[place] Phone: segs Absolute4.00[place] Phone: WBC (Bld) [#/Vol]8.0 10*3/uLLakehealth Beachwood Medical CenterNemedia Phone: WBC MorphologyNOT REPORTEDOomba Phone: lipaseOrdered By: Flip Dodson on 33-17-7366Xxoedg [Catalytic activity/Vol]35 U/L13 - 60 U/LMercWellRight Phone: US GALLBLADDER RUQOrdered By: Flip Dodson on 13-29-3266Oa acute abnormality. Fatty liver.[place] Phone: eXAMINATION: RIGHT UPPER QUADRANT ULTRASOUND 10/18/2019 [...] OTHER: No evidence of right upper quadrant ascites.[place] Phone: edi, cj Incoming Radiant Results From [employer] - 10/18/2019 2:07 PM EST EXAMINATION: RIGHT [...] ascites. IMPRESSION: No acute abnormality. Fatty liver. [place] Phone: eKG 12 LeadOrdered By: Jasper Cleveland on 55-88-2673Sfvirq Fjnm43NZGVpezsLocal Matters Phone: A Uatx[address]tktz[address] Bio Phone: p-R Tturekpp288 [place] Phone: Q-T Vwjrqbod962 [place] Phone: QRS Nflyvczk59 [place] Phone: QTc Calculation (Bazett)[address] [place] Phone: R Ggky[address]Rh[address] Bio Phone: T Qgpe01dxfpsibJvlbsW[address] Bio Phone: Ventricular Dlxn84EWZOjmzlLocal Matters Phone: Normal sinus rhythm Normal ECG When compared with ECG of 26-MAR-2019 16:56, No significant change was found Confirmed by SHARON VARGAS ([id number]) on 10/03/2019 10:54:07 PMOomba Phone: edi, [facility] Incoming Ekg Results From [employer] - 10/03/2019 10:54 PM EST Normal sinus rhythm Normal ECG When compared with ECG of 26-MAR-2019 16:56, No significant change was found Confirmed by SHARON VARGAS ([id number]) on 10/03/2019 10:54:07 PMOomba Phone: Otheron 11-65-5489Lmqafdmo suggest gastroparesis for solid materials.[facility] CirclTIENEXAMINATION: NUCLEAR MEDICINE GASTRIC EMPTYING STUDY 08/22/2019 11:54 [...] significantesophageal retention, hiatal hernia or reflux was observed.[facility] HospitalBee Mhpn Incoming Radiant Results From [facility] - 08/24/2019 10:08 AM EST EXAMINATION: NUCLEAR [...] IMPRESSION: Findings suggest gastroparesis for solid materials. [facility] HospitalEMELINA HEAD NECK SOFT TISSUE THYROIDon 08-03-20191.3 [...] no more than four nodules should be followed.[facility] HospitalTIENEXAMINATION: THYROID ULTRASOUND 08/03/2019 COMPARISON: None available [...] (2) 2. Echogenicity: Hypoechoic (2) 3. Shape: Egkwp-lguy-fvgr (0) 4. Margins: Smooth (0) 5. Echogenic foci: None (0) ACR TI-RADS total points: 4 ACR TI-RADS risk category: TR4 Prior biopsy: Unknown. Cervical lymphadenopathy: No abnormal lymph nodes in the imaged portions of the neck.[facility] HospitalBee Mhpn Incoming Radiant Results From [facility] - 08/03/2019 3:19 PM EST EXAMINATION: THYROID [...] (2) 2. Echogenicity: Hypoechoic (2) 3. Shape: Xjdho-kruj-hbwp (0) 4. Margins: Smooth (0) 5. Echogenic [...] more than four nodules should be followed. Corey HospitalafterBOTDEACONESS INCARNATE WORD [facility], TIENCT ABDOMEN PELVIS W IV CONTRAST Additional Contrast? Oralon . No acute inflammatory process identified. 2. Bilateral punctate nephrolithiasis. 3. Hepatomegalywith steatosis.[facility] SepSensorDEACONESS INCARNATE WORD [facility]ALTH SYSTEM, KYEXAMINATION: CT OF THE ABDOMEN AND PELVIS [...] Implanted thoracic neurostimulator. No acute osseous abnormality identified.Corey HospitalAmerican Hometown Media River Point Behavioral HealthBee Jarad Incoming Radiant Results From [facility] - 07/30/2019 3:42 PM EST EXAMINATION: CT [...] Bilateral punctate nephrolithiasis. 3. Hepatomegaly with steatosis. [facility], OKCBC Auto Differentialon 80-79-6868Bxwjfdiii (Bld) [#/Vol] 0.06 10*3/[facility], KYBasophils/100 WBC (Bld)1 %0 - 2 %[facility], KYDifferential TypeNOT REPORTEDC[facility] Clinic [facility], KYEosinophils (Bld) [#/Vol] 0.33 10*3/[facility], KYEosinophils/100 WBC (Bld)4 %1 - 4 %[facility], KYErythrocyte distribution width (RBC) [Ratio]12.1 %11.8 - 14.4 %[facility], KYHematocrit (Bld) [Volume fraction]45.8 %36.3 - 47.1 %[facility], KYHemoglobin (Bld) [Mass/Vol]14.6 g/dL11.9 - 15.1 g/dLCleveland Clinic [facility] Hospital, [place] Immature granulocytes (Bld) [#/Vol]0.12 10*3/uLPromedica Defiance Regional Hospital- [place], TIENImmature granulocytes (Bld) [#/Vol]1 %Cjgo4UfsdgC[facility], TIENInterpretation and review of laboratory resultsAbnormalC[facility], TIENLymphocytes (Bld) [#/Vol]3.67 10*3/uLPromedica Defiance Regional Hospital- [place], TIENLymphocytes/100 WBC (Bld)42 %24 - 43 %[facility], TIENH (RBC) [Entitic mass]30.3 pg25.2 - 33.5 pgC[facility] Clinic [facility], OKMCHC (RBC) [Mass/Vol]31.9 g/dL28.4 - 34.8 g/dLPromedica [facility]- [place], TIENMCV (RBC) [Entitic vol]95.0 fL82.6 - 102.9 fLCleveland [facility]on Hospital, TIENMonocytes (Bld) [#/Vol]0.66 10*3/[facility], TIENMonocytes/100 WBC (Bld)8 %3 - 12 %[facility], OKPlatelet mean volume (Bld) [Entitic vol]9.1 fL8.1 - 13.5 fLCleveland Clinic Avon Hospital, KYPlatelets (Bld) [#/Vol]NOT REPORTEDCleveland Clinic [facility], KYPlatelets (Bld) [#/Vol] 406 10*3/uLPromedica Def[facility]- [place], OKRBC (Bld) [#/Vol]4.82 10*6/uL3.95 - 5.11 m/uL [facility], OKRBC morphology finding Nom (Bld)NOT REPORTEDC[facility] Clinic [facility], TIENSegmented neutrophils/100 WBC (Bld)44 %36 - 65 %[facility], TIENSegs Absolute3.94[facility]- [place], KYWBC (Bld) [#/Vol]8.8 10*3/uLPromedica [facility]- [place], [place] WBC (Bld) [#/Vol]0.0 10*3/uL0.0 per 100 WBCCleveland Clinic Avon Hospital, OKWBC MorphologyNOT REPORTEDPromedica [facility]- [place], KYComprehensive Metabolic Panelon [id number] [Mass/Vol]4.3 g/dL3.5 - 5.2 g/dLPromedica Defiance [facility]- [place], KYAlbumin/Globulin [Mass ratio]1.2 {ratio}[facility]- [place], KYALP [Catalytic activity/Vol]85 U/L35 - 104 U/[facility]MMem[facility]- [place], KYALT [Catalytic activity/Vol]30 U/L5 - 33 U/LMpike [facility]- [place], KYAnion gap [Moles/Vol]14 mmol/L9 - 17 mmol/LMpike [facility]- [place], KYAST [Catalytic activity/Vol]23 U/L<32[facility]- [place], KYBilirubin Ql (U)0.21 mg/dL Low0.3 - 1.2 mg/dLPromedica Defiance [facility]- [place], KYBun/Cre Cvlxm26QdzjFmgez Health- [place], [place] Calcium [Mass/Vol]9.9 mg/dL8.6 - 10.4 mg/dLCleveland Clinic [facility] Hospital, KYChloride [Moles/Vol]98 mmol/L98 - 107 mmol/[facility]- [place], KYCO2 [Moles/Vol]24 mmol/L 20 - 31 mmol/LMMemorial Health [facility]- [place], KYCreatinine [Mass/Vol]0.63 mg/dL0.5 - 0.9 mg/dL [facility], KYGFR >60>60 mL/minCleveland Clinic [facility] Hospital, KYGFR Non->60>60 mL/minC[facility] Clinic [facility], KYGlucose [Mass/Vol]328 mg/dL High70 - 99 mg/dLCleveland Clinic [facility] Hospital, KYInterpretation and review of laboratory resultsAbnormalC[facility] Clinic [facility], KYPotassium [Moles/Vol]4.9 mmol/L3.7 - 5.3 mmol/LMMemorial Health [facility]- [place], KYProtein [Mass/Vol]7.8 g/dL6.4 - 8.3 g/dLCleveland Clinic [facility] Hospital, KYSodium [Moles/Vol]136 mmol/L135 - 144 mmol/LMMemorial [facility]- [place], KYUrea nitrogen [Mass/Vol]16 mg/dL6 - 20 mg/dLCleveland Clinic Avon Hospital, KYHemoglobin A1Con [id number] [Mass/Vol]260 mg/dLCleveland Clinic [facility] Hospital, TIENComment on above:The ADA and AACC recommend providing the estimated average glucose result to permit better patient understanding of their HBA1c result. HbA1c (Bld) [Mass fraction]10.7 %High4.8 - 5.9 %[facility], [place] Interpretation and review of laboratory resultsAbnoOhioHealth Southeastern Medical Center, [place] Lipaseon [id number] [Catalytic activity/Vol]36 U/L13 - 60 U/[facility], OKMetabolic Panelon [id number]/1.73 sq M predicted among non-blacks MDRD (S/P/Bld) [Vol rate/Area][facility] OKComyayo on above:Stage 1: Some kidney damage normal [...] body mass. Additional eGFR calculator available at: http://www.[employer]/multiple_crcl_2012.htm Glucose, Fastingon 75-77-2203Nhewhua [Mass/Vol]152 mg/bUWcrh62 - 99 mg/dLCleveland Clinic [facility] Hospital, OKInterpretation and review of laboratory resultsAbnoOhioHealth Southeastern Medical Center, OKBasic Metabolic Panelon [id number] gap [Moles/Vol]17 mmol/L9 - 17 mmol/LMOhio State Health System, KYBun/Cre Vqcow79ZkjzxCleveland Clinic [facility]on Hospital, KYCalcium [Mass/Vol]9.7 mg/dL8.6 - 10.4 mg/dLCleveland Clinic [facility], KYChloride [Moles/Vol]96 mmol/LLow98 - 107 mmol/[facility], KYCO2 [Moles/Vol]22 mmol/L20 - 31 mmol/LMOhio State Health System, KYCreatinine [Mass/Vol]0.65 mg/dL0.5 - 0.9 mg/dLCleveland Clinic [facility], KYGFR >60>60 mL/minC[facility] Clinic [facility], KYGFR Non- >60>60 mL/minC[facility] Clinic [facility], KYGlucose [Mass/Vol]310 mg/dLHigh 70 - 99 mg/dLCleveland Clinic [facility], OKInterpretation and review of laboratory results AbnormalC[facility] Clinic [facility], KYPotassium [Moles/Vol]4.4 mmol/L3.7 - 5.3 mmol/LMOhio State Health System, KYSodium [Moles/Vol]135 mmol/L135 - 144 mmol/LMOhio State Health System, [place] Urea nitrogen [Mass/Vol]12 mg/dL6 - 20 mg/dLCleveland Clinic [facility] Hospital, OKHemoglobin A1Con [id number] [Mass/Vol]263 mg/dLCleveland Clinic [facility]on Hospital, OKComment on above:The ADA and AACC recommend providing the estimated average glucose result to permit better patient understanding of their HBA1c result. HbA1c (Bld) [Mass fraction]10.8 %High4.8 - 5.9 %[facility], [place] Interpretation and review of laboratory resultsAbnormalCleveland Clinic [facility] Hospital, OKLDL Cholesterol, Directon 02-33-0502Jhlgqgevguu in LDL [Mass/Vol]64 mg/dL<100[facility], OKComment on above: LDL Guidelines: <100 Desirable 100-129 Near to/above Desirable 130-159 Borderline >159 Undesirable Direct (measured) LDL and calculated LDL are not interchangeable tests. Lipid Panelon [id number] [Mass/Vol]166 mg/dL<200[facility], [place] Comment on above: Cholesterol Guidelines: <200 Desirable 200-240 Borderline >240 Undesirable Cholesterol in HDL [Mass/Vol]28 mg/dLLow>40[facility], OKComment on above: HDL Guidelines: <40 Undesirable 40-59 Borderline >59 Desirable Cholesterol in LDL [Mass/Vol]0 - 130 mg/dLCleveland Clinic Avon Hospital, OKComment on above: Calculation not valid for Triglyceride value greater than 400 mg/dL. Direct LDL reflexed LDL Guidelines: <100 Desirable 100-129 Near to/above Desirable 130-159 Borderline >159 Undesirable Direct (measured) LDL and calculated LDL are not interchangeable tests. Cholesterol in VLDL [Mass/Vol]1 - 30 mg/dL[place], [place] Cholesterol.total/Cholesterol in HDL [Mass ratio]5.9 {ratio}High<5[place], KYInterpretation and review of laboratory resultsAbnormalEx[place], KYTriglyceride [Mass/Vol]665 mg/dLHigh<150[place], KYComment on above: Triglyceride Guidelines: <150 Desirable 150-199 Borderline 200-499 High >499 Very high Based on AHA Guidelines for fasting triglyceride, June 2012. Metabolic Panelon [id number]/1.73 sq M predicted among non-blacks MDRD (S/P/Bld) [Vol rate/Area][place], KYComment on above:Average GFR for 40-49 years old: 99 mL/min/1.73sq m Chronic Kidney Disease: <60 mL/min/1.73sq m Kidney failure: <15 mL/min/1.73sq m eGFR calculated using average adult body mass. Additional eGFR calculator available at: http://www.[employer]/multiple_crcl_2012.htm Stage 1: Some kidney damage normal GFR Stage 2: Mild kidney damage GFR 60-89 Stage 3: Moderate kidney damage GFR 30-59 Stage 4: Severe kidney damage GFR 15-29 Stage 5: Severe kidney damage GFR <15 ESRD - chronic treatment by dialysis or transplant Vital Signs Date TimeVital SignValuePerforming RjcqqqtmxKiajavvt55-44-6431 14:30-0500Body wdeknvbjosg87.59 [degF][address]11-07-2025 14:30-0500 Diastolic blood xvakfiyc49 mm[Hg][address]11-07-2025 14:30-0500Heart rate77 /minMth [address] [place], [place] 5135811-07-2025 14:30-0500 Respiratory rate18 /minMth [address] [place], [place] 5135811-07-2025 14:30-0500 Systolic blood okfieccj653 mm[Hg][address]10-30-2025 14:04-0400Body wehiilsmbfe23.69 [degF][facility] 03[facility]10-30-2025 14:04-0400Diastolic blood ubqmihdn44 mm[Hg][facility] 03[facility] 07-25-2025 14:04-0400Heart rate86 /minMth 03[facility]10-30-2025 14:04-0400Respiratory rate18 /minMth 03[facility]10-30-2025 14:04-0400Systolic blood wfunoprg939 mm[Hg][facility] 03[facility] 07-23-2025 09:30-0400Diastolic blood mm[Hg][place] Everett MD Work Phone: [facility]10-28-2025 09:30-0400Heart rate88 /minThomas Karlos MULLEN Work Phone: [facility]10-28-2025 09:30-0400 Respiratory rate17 /minRosalioomas Karlos MULLEN Work Phone: [facility]10-28-2025 09:30-4217DyC4% (BldA) [Mass fraction]94 %Florida Everett MD Work Phone: [facility]10-28-2025 09:30-0400Systolic blood zkdhcjbe212 mm[Hg]Florida Everett MD Work Phone: [facility]10-28-2025 09:07-0400Body [degF]Florida Everett MD Work Phone: [facility]10-28-2025 06:33-0400Body eulvlw937.6 Trey Everett MD Work Phone: [facility]10-28-2025 06:33-0400Body mass index (BMI) [Ratio]36.74 kg/g0IodfmeFlorida Everett MD Work Phone: [facility]10-28-2025 06:33-0400Body iegmkz829.24 kgThanalia Everett MD Work Phone: [facility]10-22-2025 13:35-0400Body adfgpgrhevp03.8 [degF][address]10-22-2025 13:35-0400 Diastolic blood kjwxdyyp31 mm[Hg][address]10-22-2025 13:35-0400Heart rate94 /minMth [address] [place], [place] 5135810-22-2025 13:35-0400 Respiratory rate20 /minMth [address] [place], [place] 5135810-22-2025 13:35-0400 Systolic blood idsnhrrl881 mm[Hg][address]09-29-2025 12:15-0400Body tzevmw945.64 cmSy[facility]09-29-2025 12:15-0400Body mass index (BMI) [Ratio]37.1 kg/k8TgvlbiyhfSycamore Medical Center09-29-2025 12:15-0400Body nvaqvc200.32 kgSycamore Medical Center 06-19-2025 13:32-0400Body jzgcixoeekq27 [degF][address] 06-19-2025 13:32-0400Diastolic blood bohalijg58 mm[Hg][address]09-24-2025 13:32-0400Heart rate87 /minMth [address] [place] [address] 06-19-2025 13:32-0400Respiratory rate18 /minMth [address] [place] [address] 06-19-2025 13:32-0400Systolic blood zbqtallr895 mm[Hg][address]09-17-2025 13:44-0400Body akmdyliiask89.59 [degF][address]09-17-2025 13:44-0400Diastolic blood uefnvofu27 mm[Hg][address]09-17-2025 13:44-0400Heart rate88 /minMth [address] [place] [address] 06-12-2025 13:44-0400Respiratory rate18 /minMth [address] [place] [address] 06-12-2025 13:44-0400Systolic blood lehdgswm388 mm[Hg][facility]09-05-2025 09:12-0400Heart rate86 /Rose Jhaveri MD Work Phone: [facility]09-05-2025 09:12-0400 Respiratory rate16 /Rose Jhaveri MD Work Phone: [facility]09-05-2025 09:12-3915IyN3% (BldA) [Mass fraction]94 %Inder Jhaveri MD Work Phone: [phone]09-05-2025 06:47-0400Body zuqyfglcyph30.91 [degF]Inder Jhaveri MD Work Phone: [facility] Rvzqeo45-80-5947 06:47-0400Diastolic blood cmnqehwt02 mm[Hg]Inder Jhaveri MD Work Phone: [facility]09-05-2025 06:47-0400Systolic blood wkakbuvz227 mm[Hg]Inder Jhaveri MD Work Phone: [facility]09-05-2025 05:26-0400Body zyeldq210.6 Christel Jhaveri MD Work Phone: [facility] Tsasme91-18-7616 05:15-0400Body mass index (BMI) [Ratio]38.14 kg/u0WuikhnmybInder Jhaveri MD Work Phone: [facility] Myddfk15-18-5292 05:15-0400Body .19 kgInder Jhaveri MD Work Phone: [facility] Kyrnzn77-93-4039 13:25-0400Body lysidbwaayq57.59 [degF][facility]08-28-2025 13:25-0400 Diastolic blood hgvbwsye79 mm[Hg][facility] Mlgenc92-34-8767 13:25-0400Heart rate81 /minMth 03[facility] HospitalDpsfhg39-33-0291 13:25-0400 Respiratory rate18 /minMth 03Bon Seckrystal [facility] HospitalYfmzgu32-94-8733 13:25-0400 Systolic blood mm[Hg][facility] 03Bon Seckrystal [facility] HospitalIgdzfx32-93-4132 14:23-0400Body vpvqpopawqn52.49 [degF][facility] 03Bon Seckrystal [facility] HospitalBpavlf82-62-8707 14:23-0400Diastolic blood zbgthunj45 mm[Hg][facility] 03[facility] 05-16-2025 14:23-0400Heart rukr327 /minMth 03Bon Se[address]rystal [facility] HospitalResxqw03-39-7848 14:23-0400Respiratory rate20 /minMth 03[facility] HospitalJlxkdo34-41-4963 14:23-0400Systolic blood ahfguyyx120 mm[Hg][facility] 03Bon [facility] [employer] 05-09-2025 14:20-0400Body fxzawftmpms62.59 [degF][facility] 03Bon [facility] 05-09-2025 14:20-0400Diastolic blood vzboeiol46 mm[Hg][facility] 03Bon [facility]08-14-2025 14:20-0400Heart rate94 /minMth 03Bon [facility] 05-09-2025 14:20-0400Respiratory rate18 /minMth 03Bon [facility] 05-09-2025 14:20-0400Systolic blood udbbyiud445 mm[Hg][facility] 03Bon [facility]08-07-2025 14:35-0400Body gofsusizkhh34.9 [degF][facility] 03Bon [facility] 14:35-0400Diastolic blood ljjrqvba18 mm[Hg][facility] 03Bon [facility]08-07-2025 14:35-0400Heart rate84 /minMth 03Bon [facility] [employer] 05-02-2025 14:35-0400Respiratory rate18 /minMth 03Bon [facility] [employer] 05-02-2025 14:35-0400Systolic blood bezqcxpw039 mm[Hg][facility] 03Bon [facility]08-04-2025 13:03-0400Body abibnmgqnem11.81 [degF][facility] 03[facility] HospitalMxwprm53-23-5030 13:03-0400Diastolic blood dtethrji45 mm[Hg]Mth 03Bon [facility]08-04-2025 13:03-0400Heart rate80 /minMth 03[facility] 04-29-2025 13:03-0400Respiratory rate20 /minMth 03Bon [facility] 04-29-2025 13:03-0400Systolic blood mm[Hg][facility] 03Bon [facility]07-31-2025 15:05-0400Body izmftdsuekz47.11 [degF][facility] 03Bon [facility]07-31-2025 15:05-0400Diastolic blood tistuvsh16 mm[Hg][facility] 03Bon [facility]07-31-2025 15:05-0400Heart rate93 /minMth 03Bon [facility] 04-25-2025 15:05-0400Respiratory rate18 /minMth 03Bon [facility] 04-25-2025 15:05-0400Systolic blood njbzfleh430 mm[Hg][facility] 03Bon [facility]07-28-2025 15:13-0400Body znydvdjbvdy65.91 [degF][facility] 03Bon [facility]07-28-2025 15:13-0400Diastolic blood sanuzofe27 mm[Hg][facility] 03Bon [facility]07-28-2025 15:13-0400Heart rate88 /minMth 03Bon [facility] 04-22-2025 15:13-0400Respiratory rate18 /minMth 03Bon [facility] 04-22-2025 15:13-0400Systolic blood mm[Hg][facility] 03Bon [facility]07-24-2025 14:59-0400Body fneqzqmcvsq08.01 [degF][facility] 03Bon [facility]07-24-2025 14:59-0400Diastolic blood bydjmsly35 mm[Hg][facility] 03Bon [facility]07-24-2025 14:59-0400Heart rate90 /minMth 03Bon [facility] 04-18-2025 14:59-0400Respiratory rate16 /minMth 03Bon [facility] 04-18-2025 14:59-0400Systolic blood zzrmioyt357 mm[Hg][facility] 03Bon [facility]07-21-2025 15:02-0400Body yxzmsyeqkig88.49 [degF][facility] 03Bon [facility]07-21-2025 15:02-0400Diastolic blood beokjsyc06 mm[Hg][facility] 03Bon [facility]07-21-2025 15:02-0400Heart rate95 /minMth 03[facility] 04-15-2025 15:02-0400Respiratory rate18 /minMth 03Bon [facility] 04-15-2025 15:02-0400Systolic blood evnwovzw992 mm[Hg][facility] 03[facility]07-17-2025 14:45-0400Body kqowbngrhtb72 [degF][facility] 03Bon [facility]07-17-2025 14:45-0400Diastolic blood yhuptnxm19 mm[Hg][facility] 03[facility]07-17-2025 14:45-0400Heart rate87 /minMth 03[facility] 04-11-2025 14:45-0400Respiratory rate18 /minMth 03[facility] 04-11-2025 14:45-0400Systolic blood mm[Hg][facility] 03[facility]12-21-2024 16:13-0500Body exvgyxiagqn31.2 [degF]Meera Mike DPM Work Phone: [facility]12-21-2024 16:13-0500Diastolic blood mtyixlpu14 mm[Hg]Meera Mike DPM Work Phone: [facility]12-21-2024 16:13-0500Heart rate87 /minMeera Mike DPM Work Phone: [facility]12-21-2024 16:13-0500 Respiratory rate16 /minMeera Mike DPM Work Phone: [facility]12-21-2024 16:13-5059WiT4% (BldA) [Mass fraction]92 %Meera Mike DPM Work Phone: [facility]12-21-2024 16:13-0500Systolic blood bxwoxbvm010 mm[Hg]Meera Mike DPM Work Phone: [facility]12-20-2024 06:26-0500Body ikbils614.6 cmMeera Mike DPM Work Phone: [facility]12-20-2024 06:26-0500Body mass index (BMI) [Ratio]34.72 kg/w4NklvwMeera Mike DPM Work Phone: [facility]12-20-2024 06:26-0500Body rqxugg36.52 kgMeera Mike DPM Work Phone: [facility]12-13-2024 13:04-0500Body mtvywn345.6 cmMeera Mike DPM Work Phone: [facility]12-13-2024 13:04-0500Body mass index (BMI) [Ratio]34.7 kg/a5OexhsMeera Mike DPM Work Phone: [facility]12-13-2024 13:04-0500Body akjaxstzpcu79.61 [degF]Meera Mike DPM Work Phone: [facility]12-13-2024 13:04-0500Body vtjuww68.52 kgMeera Mike DPM Work Phone: [facility]12-13-2024 13:04-0500Diastolic blood vtqmmojr14 mm[Hg]Meera Mike DPM Work Phone: [facility]12-13-2024 13:04-0500Heart rate94 /minMeera Mike DPM Work Phone: [facility]12-13-2024 13:04-0500 Respiratory rate18 /minMeera Mike DPM Work Phone: [facility]12-13-2024 13:04-7955GoE0% (BldA) [Mass fraction]96 %Meera Mike DPM Work Phone: [facility]12-13-2024 13:04-0500Systolic blood gunavtkt360 mm[Hg]Meera Mike DPM Work Phone: [facility]10-31-2024 16:00-0400 Respiratory rate14 /minMeera Mike DPM Work Phone: [facility]10-31-2024 07:07-0400Body ceqlshhcezb61.7 [degF]Meera Mike DPM Work Phone: [facility]10-31-2024 07:07-0400Diastolic blood zshlykrv42 mm[Hg]Meera Mike DPM Work Phone: [facility]10-31-2024 07:07-0400Heart rate92 /minMeera Mike DPM Work Phone: [facility]10-31-2024 07:07-9687JeG8% (BldA) [Mass fraction]91 %Meera Mike DPM Work Phone: [facility]10-31-2024 07:07-0400Systolic blood zodubupj450 mm[Hg]Meera Mike DPM Work Phone: [facility]10-28-2024 12:23-0400Body padvxu419.6 cmMeera Mike DPM Work Phone: [facility]10-28-2024 12:23-0400Body mass index (BMI) [Ratio]34.4 kg/v7JecatMeera Mike DPM Work Phone: [facility]10-28-2024 12:23-0400Body prgonm39.62 kgMeera Mike DPM Work Phone: [facility]10-23-2024 14:54-0400Body .[address] [place], [place] 6893810-23-2024 14:54-0400Body mass index (BMI) [Ratio]34.38 kg/m2Stcz [address] [place], [place] 6893810-23-2024 14:54-0400Body dxykjhvfhzb06.7 [degF][facility] [address] [place], [place] 6893810-23-2024 14:54-0400Body lziewn69.[address] [place], [place] 6893810-23-2024 14:54-0400Diastolic blood tdosimvd25 mm[Hg][facility] [address] [place], [place] 6893810-23-2024 14:54-0400Heart rate 83 /minStcz [address] [place], [place] 6893810-23-2024 14:54-0400Respiratory rate20 /minStcz [address] [place], [place] 6893810-23-2024 14:54-0941DaE0% (BldA) [Mass fraction]93 %St[facility] [address] [place], [place] 6893810-23-2024 14:54-0400Systolic blood wtqwogfv616 mm[Hg][facility] [address] [place], [place] 6893810-19-2024 00:54-8396OsZ2% (BldA) [Mass fraction]94 %Stacy Awan MD Work Phone: [facility]10-18-2024 23:46-0400Body lzbjdayfkfe17.01 [degF]Stacy Awan MD Work Phone: bon [facility]10-18-2024 23:46-0400Diastolic blood tbislicd10 mm[Hg]Stacy Awan MD Work Phone: [facility]10-18-2024 23:46-0400Heart rate92 /Bogdan Awan MD Work Phone: [facility]10-18-2024 23:46-0400 Respiratory rate16 /minConevaeh Awan MD Work Phone: [facility]10-18-2024 23:46-0400Systolic blood gnhgiqgk537 mm[Hg]Stacy Awan MD Work Phone: [facility]10-18-2024 20:26-0400Diastolic blood zjxsbocx732 mm[Hg]Karime Ken DO Work Phone: [facility]10-18-2024 20:26-2666JoC8% (BldA) [Mass fraction]94 %Karime Ken DO Work Phone: [facility]10-18-2024 20:26-0400Systolic blood kyscvudm870 mm[Hg]Karime Ken DO Work Phone: [facility]10-18-2024 13:43-0400Body rsuajstwhvy72.3 [degF]Karime Ken DO Work Phone: [facility]10-18-2024 13:43-0400Heart rate97 /minJaveria Ken DO Work Phone: [facility]10-18-2024 13:43-0400 Respiratory rate16 /minJaveria Ken DO Work Phone: [facility]09-21-2023 20:45-0400Diastolic blood gyaqxydo13 mm[Hg]Vivian Might TELEPHONE STATION REPAIRER - RECEPTIONIST DOCTOR'S OFFICE Work Phone: [employer]09-21-2023 20:45-0400Heart rate88 /minBrett Might TELEPHONE STATION REPAIRER - RECEPTIONIST DOCTOR'S OFFICE Work Phone: [employer]09-21-2023 20:45-0400 Respiratory rate16 /minBrett Might TELEPHONE STATION REPAIRER - RECEPTIONIST DOCTOR'S OFFICE Work Phone: [employer]09-21-2023 20:45-9390GuE4% (BldA) [Mass fraction]97 %Vivian Bullard CNP Work Phone: [facility]09-21-2023 20:45-0400Systolic blood kfevejjq387 mm[Hg]Vivian Might TELEPHONE STATION REPAIRER - RECEPTIONIST DOCTOR'S OFFICE Work Phone: [facility]09-21-2023 17:32-0400Body pniuidixwce05 [degF]Vivian Might JOSSE Bullard RECEPTIONIST DOCTOR'S OFFICE Work Phone: [facility]09-19-2023 11:31-0400 Respiratory rate18 /minSjoaquin Segundo [facility]09-19-2023 07:34-0400 SaO2% (BldA) [Mass fraction]95 %Emiliano Segundo [facility]09-19-2023 06:45-0400Body ehukfkgeusp94.59 [degF]Emiliano Segnudo [facility] 06-14-2023 06:45-0400Diastolic blood ouhqyvwb75 mm[Hg]Emiliano Segundo [facility]09-19-2023 06:45-0400Heart rate74 /minSjoaquin Segundo [facility]09-19-2023 06:45-0400Systolic blood obfbwolw307 mm[Hg]Emiliano Segundo [facility]09-19-2023 05:00-0400Body mass index (BMI) [Ratio]33.88 kg/m2Emiliano Segundo [facility]09-19-2023 05:00-0400Body .21 kg Emiliano Segundo [facility]-18-2023 10:06-0400Body aifwbh449.6 cmSjoaquin Segundo [facility]04-26-2023 20:55-0400Body .6 cmMthz [facility]04-26-2023 20:55-0400Body mass index (BMI) [Ratio]33.89 kg/m2Mthz [address] [place], [place] 4533104-26-2023 20:55-0400Body uzofle63.[address] [place], [place] 4533103-15-2023 14:15-0400Diastolic blood jsqoiodl41 mm[Hg] Tari Curtis MD Work Phone: [facility]03-15-2023 14:15-0400Heart rate88 /minTari Curtis MD Work Phone: [facility]03-15-2023 14:15-0400 Respiratory rate16 /minTari Curtis MD Work Phone: [facility]03-15-2023 14:15-0578ZkD6% (BldA) [Mass fraction]95 %Tari Curtis MD Work Phone: [facility]03-15-2023 14:15-0400Systolic blood phjpgkyx981 mm[Hg]Tari Curtis MD Work Phone: [facility]03-15-2023 13:48-0400Body kxmrfxotlnc25.1 [degF]Tari Curtis MD Work Phone: [facility]03-15-2023 12:16-0400Body mass index (BMI) [Ratio]33.99 kg/r7KbupnhTari Curtis MD Work Phone: [facility]03-15-2023 12:16-0400Body jhjyoz70.53 kgTari Curtis MD Work Phone: [facility]03-02-2023 16:01-0500Body sstphu999.6 cmVarash Curtis MD Work Phone: [facility]12-13-2022 12:20-0500Body adgkvo666.64 cmShiraz Sherman Other [facility] [employer] Other 11-11-2022 18:00-0500Body fjpehfozfse73.1 [degF]Vivian Might TELEPHONE STATION REPAIRER - RECEPTIONIST DOCTOR'S OFFICE Work Phone: [facility] [employer] [facility] SYSTEMXCJUJP03-30-0291 18:00-0500Diastolic blood navqqypa99 mm[Hg]Vivian Might TELEPHONE STATION REPAIRER - RECEPTIONIST DOCTOR'S OFFICE Work Phone: [facility] [employer] [facility] [employer]11-11-2022 18:00-0500Heart rate99 /minBrett Might TELEPHONE STATION REPAIRER [employer] Work Phone: [facility] [employer] [facility]FAIRHILLGenoSpaceULVCXY29-30-0982 18:00-0500 Respiratory rate18 /minBrett Might TELEPHONE STATION REPAIRER [employer] Work Phone: [facility] [employer] [facility] [id number] 18:00-0679SwN1% (BldA) [Mass fraction]94 %Vivian Might TELEPHONE STATION REPAIRER [employer] Work Phone: [facility] [employer]11-11-2022 18:00-0500Systolic blood mm[Hg]Vivian Might TELEPHONE STATION REPAIRER [employer] Work Phone: [facility] [employer] [facility]-[id number] 13:59-0500Body leftto459.6 cmBrett Might TELEPHONE STATION REPAIRER [employer] Work Phone: [facility] [employer] [facility]FAIRHILLGenoSpaceFZXMOP00-21-1425 13:59-0500Body mass index (BMI) [Ratio]34.7 kg/o3Hvdmo Might TELEPHONE STATION REPAIRER [employer] Work Phone: [facility] [employer]11-11-2022 13:59-0500Body fgenll20.52 kgBrett Might TELEPHONE STATION REPAIRER [employer] Work Phone: [facility] [employer]04-27-2021 14:45-0400Diastolic blood mhunmvst20 mm[Hg][facility] Red-M GroupLakehealth Beachwood Medical CenterMiria Systems Work Phone: 1(517) 503-603704-27-2021 14:45-0400Heart rate94 /minMt [employer] Work Phone: 1(180) 202-589104-27-2021 14:45-0400Respiratory rate14 /minMt Red-M GroupLakehealth Beachwood Medical CenterMiria Systems Work Phone: 1(199) 750-454004-27-2021 14:45-3794LbL5% (BldA) [Mass fraction]95 % [facility] Red-M GroupLakehealth Beachwood Medical CenterMiria Systems Work Phone: 1(762) 672-216404-27-2021 14:45-0400Systolic blood pkhiuqyc379 mm[Hg] [facility] [employer] Work Phone: 1(283) 150-536604-27-2021 11:44-0400Body .6 [facility] [employer] Work Phone: 1(454) 750-468104-27-2021 11:44-0400Body mass index (BMI) [Ratio] 30.67 kg/m2[facility] [employer] Work Phone: 1(594) 820-410404-27-2021 11:44-0400Body fufngtxqsou33.39 [degF][facility] [employer] Work Phone: 1(924) 132-686804-27-2021 11:44-0400Body .18 [facility] [employer] Phone: Encounters Encounter DateEncounter TypeCare ProviderFacilityStart: 37-29-2733nsbjotnbktBbv D Salyer TELEPHONE STATION REPAIRER-CNPFacility:[facility] CtrStart: 44-25-2563yecyeyjyeotaryn Lemos TELEPHONE STATION REPAIRER-CNPFacility:ENT SpecStart: 08-05-2025 End: 36-66-0037woerkuwfydXamaov Lee Mascaro PA-CFacility:ENT SpecStart: 08-02-2025 End: 03-82-7018pumulcqojoTOTSOBVLuis A Olivier [place] HospitalStart: 08-02-2025 End: 28-29-3816Badslhzxdg [facility] 03[facility] Specialty [facility] (MOB)Start: 07-29-2025 End: 38-03-4583qnmvcxhoquQZNWIYDhiraj Brown HospitalStart: 07-29-2025 End: 04-45-0098Izzvwafkmw hospital visit by Yarely Dominique MD Work Phone: [facility] Medical CenterLoku MRIComment on above:Acute pain of right shoulderAcute pain of left shoulderStart: 07-25-2025 End: 12-58-6672aierpuxcgxXKMHFWGHolland Brown HospitalStart: 07-25-2025 End: 54-21-6415Hypccboapb hospital [facility] by [facility] 03[facility] Specialty Clinic (MOB)Start: 07-23-2025 End: 87-46-9339yeqnbxdisdAZTNQPShalom Blandon Hannah HospitalStart: 07-23-2025 End: 43-19-1060Chbkfqpoex hospital visit by Leah Everett MD Work Phone: MTHZ ORStart: 07-18-2025 End: 72-08-5476hnxcsirvoqONAXARaquel Brewer [facility] Hospitaltart: 07-17-2025 End: 38-95-5905aquaatczayXYYNDJ [facility] HospitalStart: 07-17-2025 End: 66-61-2251Fgcpdlwgtx hospital [facility] by [facility] [address] [place] [address] CT ScanComment on above:Chronic nasal congestion; Chronic allergic rhinitis; Chronic sinus complaintsStart: 07-17-2025 End: 92-57-1681isgfycgyrkYKBEWSGHolland Olivier [place] HospitalStart: 07-17-2025 End: 42-55-2175Qatcrjqoha hospital [facility] by physicianL[facility] Op Treatment 03[facility] (MOB)Start: 07-11-2025 End: 45-27-9695spuqkkeysoQGUWAQU S JANETMerleyda [facility] HospitalStart: 07-11-2025 End: 34-58-5126Sgjrsncbds hospital visit by physician[facility] Op Treatment 03[facility]ty [facility] (MOB)Start: 06-27-2025 End: 21-68-7215eyavjgmmckGCBDHElle Reed [facility] HospitalStart: 06-27-2025 End: 10-67-4068phjrqgehksJNWZKRaquel Brewer [place] HospitalStart: 06-24-2025 End: 85-85-6458fohrrjjkisGYM [facility] Work Phone: Start: 06-24-2025 End: 42-07-5759Vdblabf encounter procedureEagle Noe DO-[facility] [place] Work Phone: Start: 06-19-2025 End: 21-73-1137vmadbxcowwDKPTFOL S SAFADIMerleyda [place] HospitalStart: 06-19-2025 End: 09-88-1555Bkebsxvsnt hospital [facility] by [facility] Op Treatment [address] [facility] [place]Start: 06-14-2025 End: 41-35-8050nlwyjxetrcQKTAustin Bennett [place] HospitalStart: 06-14-2025 End: 46-83-8297Jllbcpvunh hospital visit by Carmen Ardon MD Work Phone: [facility] LABComment on above:BAILEE (acute kidney injury); Decreased renal functionLightheaded; Dizziness; Elevated CK; History of syncope; Essential hypertension; Tobacco abuse; Mixed hyperlipidemia; SOB (shortness of breath)Start: 06-12-2025 End: 49-87-4317eknmhsrfjtLBMWJFX S Charline Brown HospitalStart: 06-12-2025 End: 08-14-2692Bzpiocgxrc hospital visit by [facility] Op Treatment [address] [facility] ([facility]Start: 06-10-2025 End: 73-68-0646zvqdyizpjsThecgl Lee Mascaro PA-CFacility:ENT SpecStart: 06-04-2025 End: 13-43-1812ovewdsutuwWDWDEYZ S Charline Brown HospitalStart: 05-29-2025 End: 73-55-2569Sravgkoyjk and management of inpatientChristian Dee Jhaveri MD Work Phone: mthz [facility] MED SURGComment on above:BAILEE (acute kidney injury) (Primary Dx); Lightheaded; Heart murmurStart: 05-29-2025 End: 62-24-6213qhvylvtnvbBDTQYAA S JANETMerleyda Brown HospitalStart: 05-29-2025 End: 47-26-1136Kellfcxllu hospital visit by Shirley HARE Physical TherapyComment on above:ArrivedStart: 05-24-2025 End: 64-84-5317bneixykkkaNTCSL A WILKINSONJanette Mengfin HospitalStart: 05-24-2025 End: 72-64-6342Ffcazwvima hospital visit by Shirley HARE Physical TherapyComment on above:ArrivedStart: 05-23-2025 End: 67-66-2083tlewurryumHDTZRPOHolland Brown HospitalStart: 05-23-2025 End: 08-42-2297Kgbpaiazje hospital visit by Wilaura Laboratory Schedule [facility] LABComment on above:History of syncope; Essential hypertension; Tobacco abuse; Mixed hyperlipidemia; SOB (shortness of breath); Bilateral leg edemaStart: 05-23-2025 End: 24-63-5707htakrmifpjYOJPQVUHolland Brown HospitalStart: 05-23-2025 End: 84-96-0240Fjobbcsqmq [facility] 03[facility] Specialty Clinic (MOB)Start: 05-20-2025 End: 81-45-8039bfzublqdsnJEHCR Agueda Maren [place] HospitalStart: 05-20-2025 End: 02-69-6196Wdzlflxyso hospital visit by Elizabet Rich [facility] Physical TherapyComment on above:ArrivedStart: 05-16-2025 End: 50-65-0631zknaeiqtxsBSNRTVVHolland Brown HospitalStart: 05-16-2025 End: 47-25-6244Kfbxzrejrq hospital visit by Elizabet Rich [facility] Physical TherapyComment on above:ArrivedStart: 05-13-2025 End: 90-97-0688Dqxqtevrfy hospital visit by Shirley Nam PTMTHZ Physical TherapyStart: 05-10-2025 End: 61-64-7263evyzellqkwYRKONReese Engel [place] HospitalStart: 05-10-2025 End: 35-79-3534Fbaqqhuvsu hospital visit by Elizabet Rich [facility] Physical TherapyComment on above:ArrivedStart: 05-09-2025 End: 73-70-3961gebtstntgiAMVOBReese Brown HospitalStart: 05-09-2025 End: 36-71-6939Wrifqoooje [facility] 03[facility] Specialty Clinic (MOB)Comment on above:ArrivedStart: 05-02-2025 End: 11-24-3189ldxwiujwgoQLXTPReese Engel [place] HospitalStart: 05-02-2025 End: 95-69-1813Kotzhiplen hospital [facility] by [facility] 03[facility] Specialty Clinic (MOB)Comment on above:Closed dislocation of tarsal joint of left foot, initial encounterStart: 04-30-2025 End: 81-56-8064ntwemxmoouOhkNataliya Sim APRN-CNPFacility:[facility] Start: 04-30-2025 End: 21-78-7239qmsliogidgZIKFR A BONNIEJamel Brown HospitalStart: 04-30-2025 End: 17-04-2855Qpkxqdzors hospital visit by Shirley TRUONGSusan Physical TherapyComment on above:ArrivedStart: 04-29-2025 End: 45-07-7284esovwsdmycAKUSTGR Cheo Brown HospitalStart: 04-29-2025 End: 26-96-6734Dxifktzjgt hospital [facility] Op [facility] 03[facility] Specialty Clinic (MOB)Comment on above:ArrivedStart: 04-25-2025 End: 29-04-2117pwvyzrksnyQFJNataliya Thomas Hannah HospitalStart: 04-25-2025 End: 50-83-6677avvosfagulXQDCP A BONNIEJamel Brown HospitalStart: 04-25-2025 End: 02-64-7924Cuyogrjbia hospital [facility] by [facility] 03[facility] Specialty Clinic (MOB)Comment on above:ArrivedStart: 04-22-2025 End: 57-63-7043dcvelvomqeUVTTWFY S Charline Brown HospitalStart: 04-22-2025 End: 26-83-6526Tyxhwglews hospital [facility] 03[facility] Specialty Clinic (MOB)Comment on above:ArrivedStart: 04-18-2025 End: 96-48-2843lndlxmukrhXSRJAMF Cheo NICKArabella Brown HospitalStart: 04-18-2025 End: 72-91-8379Olpldgsuew hospital [facility] by [facility] Op [facility] 03[facility] Specialty Clinic (MOB)Start: 04-18-2025 End: 48-51-2526hrybamjzxhALQPV Agueda WILKINSONPromedica Memorial Hospital HospitalStart: 04-18-2025 End: 37-00-2338Pefkjlfmsa hospital visit by Shirley Nam [facility] Physical TherapyComment on above:ArrivedStart: 04-15-2025 End: 68-15-1191hdbkgjoonqXDLLRYL S SAFADILakehealth Beachwood Medical Centerleyda [facility] HospitalStart: 04-15-2025 End: 55-04-5091Hcfoppatsb hospital visit by Tammy Escamilla [facility] Physical TherapyComment on above:ArrivedStart: 04-12-2025 End: 55-46-9070awmnyhaxfpQJUU [facility] HOSPITALCHRISLakehealth Beachwood Medical Centerleyda [place] HospitalStart: 04-12-2025 End: 41-61-6789Qlredvvnzb hospital visit by [facility] MRIComment on above:Spinal stenosis, lumbar region with neurogenic claudicationStart: 04-11-2025 End: 96-01-9558jupckbiukjMAFMXEA S SAFCOMPAPromedica Memorial Hospital HospitalStart: 04-11-2025 End: 98-72-9001Qynlqupqjf hospital visit by [facility] Op Treatment 03[facility] Specialty Clinic (MOB)Comment on above:ArrivedStart: 04-08-2025 End: 98-28-1357jljfftmbwpSZSRM Agueda MIKELakehealth Beachwood Medical Centerleyda [place] HospitalStart: 04-08-2025 End: 32-16-7494Cjbgvdvdoi hospital visit by Tammy Escamilla [facility] Physical TherapyComment on above:ArrivedStart: 04-03-2025 End: 67-69-9281jtaazmshwtJBSXN Agueda MIKEPromedica Memorial Hospital HospitalStart: 04-03-2025 End: 16-92-4431Gqdmtvcwtl hospital visit by Rita OrogerOKHZ Physical TherapyComment on above:ArrivedStart: 04-01-2025 End: 03-19-0513veufffjxtiCBWCA Ageuda MIKELakehealth Beachwood Medical Centerleyda [place] HospitalStart: 04-01-2025 End: 52-77-2349Lmuqqvimps hospital visit by Shirley Nam PTMZ Physical TherapyComment on above:ArrivedStart: 02-25-2025 End: 72-90-3427qgwgjdunceDdwihtwSosa Khancility:EDUARDA Aden Start: 01-29-2025 End: 26-23-1389Ixqoxispda hospital visit by Shirley HARE Physical TherapyStart: 01-29-2025 End: 36-37-7374hhudjbocahCoeapRaquel GODINEZFacility:[facility] CtrStart: 01-25-2025 End: 19-52-1220tecvphyszxTSI SALLicking [facility] Hospital HospitalStart: 01-25-2025 End: 94-07-5551Fkexsdlshy hospital visit by Oscar Bullard CNP Work Phone: [place] [address] LABStart: 01-24-2025 End: 74-18-9772Fvebyapkfg hospital visit by Noe Chappell PTAMTHZ Physical TherapyStart: 95-57-2057eghmbrqhpuBWBZM A [facility]ENTERMARISPromedica Memorial Hospital HospitalStart: 01-22-2025 End: 00-84-4886Gemyujsnjs hospital visit by Elizabet Rich [facility] Physical TherapyStart: 01-17-2025 End: 82-46-1017varylhfaajSQCPY A [facility] CENTERMARISPromedica Memorial Hospital HospitalStart: 01-17-2025 End: 72-12-0087Lnviurfxxi hospital visit by Masood Lozoya [facility] Physical TherapyComment on above:ArrivedStart: 01-14-2025 End: 45-80-8082Hvbkvysjti hospital visit by Masood Lozoya [facility] Physical TherapyStart: 01-10-2025 End: 84-95-5724wjztrakxljZYWJS A [facility]ENTERMARISPromedica Memorial Hospital HospitalStart: 01-10-2025 End: 18-01-7705Xopjlziaoc hospital visit by Elizabet Rich [facility] Physical TherapyComment on above:ArrivedStart: 01-08-2025 End: 69-28-4870ibdintrftdMOMIE A [facility]ENTERMARISPromedica Memorial Hospital HospitalStart: 01-08-2025 End: 09-59-2982Gmjtfftxoj hospital visit by Elizabet Rich [facility] Physical TherapyComment on above:ArrivedStart: 01-03-2025 End: 68-52-8107vcklgphcreSDMJI Agueda Maren [facility] Hospitaltart: 01-02-2025 End: 59-10-7248tpkjmsoyqyWNXLB Agueda Jaylynleyda [place] HospitalStart: 01-02-2025 End: 92-34-3755Sgtztmtivl hospital visit by Rita OrogerMTHZ Physical TherapyComment on above:ArrivedStart: 12-31-2024 End: 20-29-1859wzyctridrqPDTEM A Maren [place] HospitalStart: 12-31-2024 End: 32-72-6475Jkbimkzngx hospital visit by Noe Chappell PTAMTHZ Physical TherapyComment on above:ArrivedStart: 12-26-2024 End: 83-11-6144bssbmcwkxpOPAFC Agueda Maren [place] HospitalStart: 12-26-2024 End: 61-50-6220Kyhpivccex hospital visit by Rita OrogerMTHZ Physical TherapyComment on above:ArrivedStart: 12-24-2024 End: 67-63-6883zhoobkpovvOCTDO Agueda Maren Mengfin HospitalStart: 12-24-2024 End: 05-64-2498Dntsflwhpx hospital visit by Noe Chappell PTAMTHZ Physical TherapyComment on above:ArrivedStart: 12-19-2024 End: 58-61-1765vummxjguiwETHEVReese Mengfin HospitalStart: 12-19-2024 End: 42-83-1659Mfeoarwwuh hospital visit by Elizabet Rich PTAMTHZ Physical TherapyComment on above:ArrivedStart: 12-17-2024 End: 16-24-2638Oybbixncnf hospital visit by Noe Chappell PTAMTHZ Physical TherapyStart: 12-12-2024 End: 06-49-5747ohrfmxvkvyDKMAMReese Engel [place] HospitalStart: 12-12-2024 End: 35-76-9398Yvkcoclekf hospital visit by Rita OrogerMTHZ Physical TherapyComment on above:ArrivedStart: 12-10-2024 End: 48-58-3647figwerubkfNRFQQItalia Engel [place] HospitalStart: 12-10-2024 End: 83-16-4265Xnhqtjpagu hospital visit by Tammy Escamilla PTAMTHZ Physical TherapyComment on above:ArrivedStart: 12-05-2024 End: 41-23-2434ecyxcbjaytUDCXVReese Engel [place] HospitalStart: 12-05-2024 End: 31-63-2282Hlhwtqodge hospital visit by Masood Lozoya PTAMTHZ Physical TherapyComment on above:ArrivedStart: 12-03-2024 End: 62-76-9352fjdjrhvhxzIOLHVItalia Engel [place] HospitalStart: 12-03-2024 End: 69-97-5705Jsvasckfvj hospital visit by Masood Lozoya PTAMTHZ Physical TherapyComment on above:ArrivedStart: 11-29-2024 End: 04-62-1036Gszwzevict hospital visit by Noe Chappell PTAMTHZ Physical TherapyStart: 11-27-2024 End: 67-97-8935wehiqjrympOKYZN Lauryn Brewer [place] HospitalStart: 11-27-2024 End: 03-22-2918Huwsrfjoqh hospital visit by Shirley Nam PTMTHZ Physical TherapyComment on above:ArrivedStart: 11-22-2024 End: 43-68-7210vnscqdimcxIQNAU A [facility] CenterStart: 25-34-2810ktomkexhgnLTLOF W ANA ROSALakehealth Beachwood Medical Centerleyda [place] HospitalStart: 10-25-2024 End: 47-70-0437lsvesofpreGHLAS Agueda [facility] CenterStart: 10-23-2024 End: 59-28-7347haocfewgkvDdpqcGerard GODINEZFacility:[facility] CtrStart: 10-11-2024 End: 67-51-6314zdzedxtodxNTI SALMarietta [place] HospitalStart: 10-11-2024 End: 86-68-3641Tlalwrjynf hospital visit by Oscar Bullard CNP Work Phone: mthz LaboratoryStart: 10-11-2024 End: 23-09-5433yscfryvlnkKSDVQ A [facility] Hospitaltart: 09-27-2024 End: 43-70-5773xenspubnvvBGGLEOhioHealth Van Wert Hospitaltart: 09-14-2024 End: 10-67-5631wtsizfjjcuJAVIX A [facility] Hospitaltart: 09-14-2024 End: 17-92-8050Onfnbhhmzc hospital visit by Marva Mike DPM Work Phone: stcz Med SurgComment on above:Post-op pain (Primary Dx); Charcot ankle, left; Diabetes (HCC)Start: 09-07-2024 End: 38-87-9989kuqyxvbmwvECBDJ A [facility] Hospitaltart: 09-07-2024 End: 32-73-5376Cecrovnmhx hospital visit by Marva Mike DPM Work Phone: stcz Pre-Admit TestingStart: 08-31-2024 End: 79-09-8275nhsqrntyagLOEAK A [facility]: 08-31-2024 End: 16-24-5857Adisdjnbum hospital visit by [facility] CT ScanComment on above:Closed dislocation of tarsal joint of left foot, initial encounter; Charcot's joint of foot, left; 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); Tobacco abuse; Left foot painStart: 07-23-2024 End: 37-13-0447Skehpivnws and management of Nickolas Mike DPM Work Phone: stcz Med SurgComment on above:Post-op pain (Primary Dx); Closed dislocation of tarsal joint of left foot, initial encounter; Charcot ankle, leftStart: 07-18-2024 End: 79-78-6807nbfygjrdylJTFADWilson Memorial Hospitaltart: 07-18-2024 End: 14-19-6082Licomzrafk hospital visit by Savage Ruth 3STCZ Pre-Admit TestingStart: 07-13-2024 End: 86-40-3199Zpldhirbh department patient visitConevaeh Awan MD Work Phone: [facility] EDComment on above:Lisfranc dislocation, left, initial encounter (Primary Dx)Start: 07-13-2024 End: 54-81-0297Mxhvlqbry department patient visitJakerri Ken DO Work Phone: [facility] EDComment on above:Lisfranc dislocation, left, initial encounter (Primary Dx); Closed nondisplaced fracture of metatarsal bone of left foot, unspecified metatarsal, initial encounterStart: 07-02-2024 End: 88-36-5035Inctjdzvhh hospital visit by Destini Duenas [facility] CenterHZ LaboratoryComment on above:Recurrent pansinusitisRecurrent pansinusitis; Recurrent sinusitisStart: 06-08-2024 End: 10-96-5184Gtgbuszqxo hospital visit by Oscar Bullard CNP Work Phone: mthz LaboratoryStart: 05-22-2024 End: 53-57-2851Lycluyqxsa hospital visit by Raffaele Sunshine [facility] Physical TherapyComment on above:ArrivedStart: 04-23-2024 End: 12-44-4451Mrifgkzvds hospital visit by Rita MoraOKHZ Physical TherapyComment on above:ArrivedStart: 04-12-2024 End: 97-04-6509Seymvjotgc hospital visit by Ashlee Hickman [facility] Physical TherapyStart: 03-01-2024 End: 18-87-3500Xuoizptyny hospital visit by Josué Rea [facility] Physical TherapyStart: 02-16-2024 End: 83-36-3397Hsssoqlxdx hospital visit by Raffaele Sunshine [facility] Physical TherapyComment on above:ArrivedStart: 01-16-2024 End: 85-86-8902Zkisslkaqk hospital visit by Tammy Escamilla [facility] Physical TherapyStart: 12-07-2023 End: 03-30-3210Eijjrmpdmr hospital visit by physician[facility] RadiologyComment on above:Lower leg edemaStart: 06-16-2023 End: 82-25-6512Kegrehqmp department patient visitVivian Bullard CNP Work Phone: [facility] EDComment on above:Syncope, unspecified syncope type (Primary Dx)Start: 06-10-2023 End: 66-37-6013Qeyxgzgzqr and management of inpatientSean Ray MDMZ [facility]ENTERU MED SURGComment on above:Recurrent syncope (Primary Dx); Pneumonia of both lower lobes due to infectious organismStart: 02-25-2023 ambulatoryNARENDRANATH LAKSHMIPATHY .Facility:E3Zelmo: 02-08-2023 End: 32-35-8677glnmnecsmmLOUYOUXSDFDZ LAKSHMIPATHY .Facility:R6Uihhw: 01-27-2023 End: 57-96-5814vuezopuyfnOZCFRJCBCPWO LAKSHMIPATHY .Facility:C8Rwwba: 01-19-2023 End: 69-87-2751Ugjncrhqye hospital [facility] Brooklynn Rm 1MTHZ Sleep CenterComment on above:LAYNE (obstructive sleep apnea)Start: 01-11-2023 End: 10-25-8729kvfmejtmghVIPEUFFNYEKS LAKSHMIPATHY .Facility:C4Wukzj: 12-30-2022 End: 02-85-9429lmorwibfcpFUWLHUUXJOBR LAKSHMIPATHY .Facility:C1Yrqxx: 12-28-2022 End: 25-95-3502Wdcdlkcedk hospital visit by [facility] Mri [facility] MRIComment on above:Thoracic neuritisStart: 12-08-2022 End: 81-45-3997Myzclzjxrx hospital visit by Ny Curtis MD Work Phone: mthz ORComment on above:Screening for colon cancer Start: 11-30-2022 End: 91-42-1922ytqzsukyhhZCWCUNJKKKEH LAKSHMIPATHY .Facility:U2Uruea: 11-23-2022 End: 08-97-5646Ddscifrzap hospital visit by [facility]St[facility] Sleep Rm 1MTHZ Sleep CenterComment on above:Tired; Fatigue, unspecified type; LAYNE (obstructive sleep apnea)Start: 11-17-2022 End: 14-13-8297Fxzhlfmprs hospital visit by [facility] Mri [facility] MRIComment on above:Lumbar radiculitisStart: 10-21-2022 End: 04-71-4986nvqhxraacdIF DOCTOR MISCFacility:U9Coeou: 10-08-2022 End: 18-38-5704Pubuzas encounter statusTr[facility] EKGStart: 10-08-2022 End: 53-79-0036Kbqodmifvp hospital visit by [facility] [employer] Employee [facility] EKG Comment on above:Syncope and collapse; Preop cardiovascular exam; Dizziness; Primary hypertension; Mixed hyperlipidemia; Tobacco abuse counselingStart: 02-83-5770Ycawmglaj to same day surgery center [facility] OutPtStart: 10-04-2022 End: 52-46-9767nolsiggyypLYJ STAFFFacility:[facility] Start: 10-01-2022 End: 18-66-3113Zuxwnlygme [facility] Stress LabComment on above:Canceled (Other)Start: 09-30-2022 End: 56-16-7075legkqsjtpcWTT STAFFFacility:[facility] Start: 09-30-2022 End: 63-45-2252sopfkqkpsfUKH [facility] Work Phone: Start: 09-30-2022 End: 24-35-5808Xynhexw encounter [facility] Xak-Ihp-Ybjpysts Testing Work Phone: Start: 09-29-2022 End: 06-35-5409Fwldgusyfd [facility] Stress LabComment on above:Postural syncopeStart: 09-21-2022 End: 13-93-2373oshijhjcljJYW STAFFFacility:[facility] Start: 09-21-2022 End: 09-31-7642wwvszgfxuwZEX [facility] Work Phone: Start: 09-21-2022 End: 93-72-0888Zvplfdo encounter [facility]Ohio[facility] Work Phone: Start: 09-21-2022 End: 79-77-4644Xrgrczvdpg hospital visit by Oscar Bullard CNP Work Phone: mthz LaboratoryComment on above:Controlled type 2 diabetes mellitus with diabetic polyneuropathy, with long-term current use of insulin (HCC)Start: 09-14-2022 End: 86-92-9889uallkvtvrrDK DOCTOR MISCFacility:C6Rtbjr: 09-10-2022 End: 24-24-3387Ydemtcjuuy hospital visit by physicianTorri Cov[facility]ening [facility] Covid ScreeningComment on above:ArrivedStart: 61-42-9033Nvcmsv outpatient visit 40 [facility] NeurosurgeryStart: 09-07-2022 End: 36-25-2529otbgmavmtmKV DOCTOR [facility] [employer] Other start: 09-03-2022 End: 00-26-5489Gastgcohxr hospital visit by physicianTorri Covid Screening ScheduleST[facility] Covid ScreeningComment on above:ArrivedStart: 08-26-2022 End: 84-34-3548kqyzslzriyHJ DOCTOR MISCFacility:Y5Aawfq: 08-10-2022 End: 66-40-0433ywqbwqxldtDY JASPER Cheo YUMIKO .Facility:J0Sxzwn: 08-06-2022 End: 87-38-9749Ltectjpmae hospital visit by Shirley HARE Physical TherapyStart: 08-06-2022 End: 01-94-2356Nabiktopn department patient visitVivian Bullard CNP Work Phone: [facility] EDComment on above:Rib pain on left side (Primary Dx)Start: 08-04-2022 End: 79-42-2226Tiliztmkvk hospital visit by [facility] Ultrasound [facility] UltrasoundComment on above:Colon cancer screening; Fatty liverStart: 08-02-2022 End: 23-27-1526Ykklsjucmn hospital visit by Shirley HARE Physical TherapyStart: 07-29-2022 End: 15-89-6965tctkszcjahAR JASPERJUDI [place] .Facility:T6Nniof: 07-23-2022 End: 34-97-9355Jqvqzzpcrp hospital visit by Shirley Nam PTMTHSusan Physical TherapyStart: 07-19-2022 End: 47-25-2764Ibpcbpzysf hospital visit by Doreen Mccray PTAOKLAURA LaboratoryComment on above:Colon cancer screening; Fatty liverArrivedStart: 07-16-2022 End: 32-29-7924Oyxjvbkvup hospital visit by Shirley Nam PTMTHSusan Physical TherapyComment on above:ArrivedStart: 07-13-2022 End: 11-29-2609Ovyeqsltmf hospital visit by Doreen Mccray PTAOKLAURA Physical TherapyComment on above:ArrivedStart: 07-12-2022 End: 57-87-3583Fykhzaddxw hospital visit by Doreen Mccray PTAOKLAURA Physical TherapyComment on above:ArrivedStart: 07-08-2022 End: 38-66-6420Gwabgupqau hospital visit by Shirley Nam PTMTHSusan Physical TherapyComment on above:ArrivedStart: 07-07-2022 End: 47-94-3422Zcntyotult hospital visit by Lasha Beltran PTAOKHZ Physical TherapyComment on above:ArrivedStart: 07-05-2022 End: 49-43-0561Rwarbjjiik hospital visit by Lasha Beltran PTAOKHZ Physical TherapyComment on above:ArrivedStart: 07-02-2022 End: 87-49-3751Aazrnhraaj hospital visit by Shirley Nam PTMSusan Physical TherapyComment on above:ArrivedStart: 06-30-2022 End: 35-80-2724Zaopwjwskp hospital visit by Lasha Beltran PTAOKHZ Physical TherapyComment on above:ArrivedStart: 06-28-2022 End: 66-01-2475Wdehqtidpu hospital visit by Lasha Beltran PTAOKHZ Physical TherapyComment on above:ArrivedStart: 06-24-2022 End: 67-60-4947Oqhumtimwh hospital visit by Shirley [facility] Physical TherapyComment on above:ArrivedStart: 06-18-2022 End: 27-85-0400Tkvevkrksy hospital visit by Lasha Beltran [facility]ST[facility] Physical TherapyComment on above:ArrivedStart: 06-16-2022 End: 43-40-6825Djhbgijrbi hospital visit by Lasha Beltran [facility] Physical TherapyComment on above:ArrivedStart: 06-14-2022 End: 67-57-7372Gaiumiqmoh hospital visit by Lasha Beltran [facility]ST[facility] Physical TherapyComment on above:ArrivedStart: 06-11-2022 End: 65-67-9329Kgemvtjwlw hospital visit by Shirley [facility] Physical TherapyComment on above:ArrivedStart: 06-07-2022 End: 55-55-8270Iwbzqabjlg hospital visit by Lasha Beltran [facility] Physical TherapyStart: 06-02-2022 End: 81-01-3452Wfwmjkwest hospital visit by Lasha Beltran [facility]ST[facility] Physical TherapyStart: 05-28-2022 End: 68-38-9753Sevmonqkch hospital visit by Shirley Nam [facility] Physical TherapyComment on above:ArrivedStart: 05-27-2022 End: 20-97-3135Yaotqlfkoe hospital visit by Shirley Nam [facility] Physical TherapyComment on above:ArrivedStart: 05-25-2022 End: 23-25-8587Apluwpiaul hospital visit by Caitlin Garcia [facility] Physical TherapyComment on above:ArrivedStart: 05-18-2022 End: 43-09-3835Qloocyhxlk hospital visit by Shirley Nam [facility] Physical TherapyComment on above:ArrivedStart: 04-29-2022 End: 53-66-8606fxvklixivuRW VIMAL S KUMAR .Facility:D6Siuvx: 04-13-2022 End: 49-75-9753ckpsuzbfeaLD JASPER [place] .Facility:T7Sdjzq: 04-09-2022 End: 90-08-9013Cglkkfqfdn hospital visit by physicianTorri Covid Screening ScheduleMTHZ Covid ScreeningComment on above:ArrivedStart: 04-01-2022 End: 96-25-3315eppabeiweoLOJN SOLIS .Facility:M7Lmtbq: 03-31-2022 End: 40-88-4307Eyhgoqguas hospital visit by [facility] Vascular Imaging Room [facility] Vascular LabComment on above:Intermittent claudication (HCC) Start: 03-02-2022 End: 26-36-5778hmywhtvhxbSNZ STAFFFacility:[facility] Start: 11-26-2021 End: 36-15-0440Ckmilbochv [facility] Cov[facility] Screening ScheduleST. [facility] Covid ScreeningComment on above:ArrivedStart: 05-15-2021 End: 72-95-1822Gproqgqdwc hospital visit by [facility] Mammography Room At [facility] MammographyComment on above:Other screening mammogramStart: 50-54-1449gxtlonbpikDFPTJ [facility] Centertart: 03-11-2021 End: 20-91-6884Zuwudjgasz hospital visit by Oscar Bullard CNP Work Phone: mthz LaboratoryComment on above:Abnormal LFTsStart: 03-04-2021 End: 94-76-5593Fdjcvgtuiz hospital visit by [facility] Cardiology Stress Room [facility] Stress LabComment on above:ArrivedStart: 03-03-2021 End: 74-11-2309Wtcloroxax hospital [facility] Echo RoomST. [facility] EchocardiographyComment on above:Essential hypertension; Chest discomfort; Hyperlipidemia, unspecified hyperlipidemia type; Tobacco abuseArrivedStart: 02-09-2021 End: 28-80-3263Prjksiemra hospital visit by Oscar Bullard CNP Work Phone: mthz LaboratoryComment on above:HepatomegalyStart: 01-28-2021 End: 79-93-3438Pbxwbctsft hospital visit by Oscar Bullard CNP Work Phone: mthz LaboratoryComment on above:Renal stones; Renal colicStart: 01-27-2021 End: 24-94-8239Yfpbqgqjpf hospital visit by [facility] Xr Dr Room [address] [place] [address] RadiologyComment on above:Renal stonesStart: 01-20-2021 End: 13-37-2996Hpxgwwbvze hospital visit by [facility] Cat Scan [facility] CT ScanComment on above:DDD (degenerative disc disease), lumbar Start: 09-30-2020 End: 48-66-7407Ywvqvxilug hospital visit by Wilaura Covid Screening ScheduleST. [facility] Covid ScreeningComment on above:Preoperative testingStart: 08-13-2020 End: 14-56-3856Cfavmbguoe hospital visit by Oscar Lopez Laboratory Start: 07-25-2020 End: 44-29-4456Ngjkxmdlzw hospital visit by [facility] ScanComment on above:Traumatic injury of head, initial encounter; Scalp tendernessStart: 07-08-2020 End: 95-97-1297Xvuvtwacvu hospital visit by Wilaura Covid Screening ScheduleST[facility] Covid ScreeningComment on above:ArrivedStart: 01-25-2020 End: 86-33-4546Zexdoimqkd hospital visit by [facility] Xr Dr Room [address] [place] [address] RadiologyComment on above:Renal stonesStart: 12-28-2019 End: 33-59-8647Fmjgvygdch hospital visit by Oscar Lopez [facility] Start: 10-18-2019 End: 90-42-5853Scpydpwmhp hospital visit by Oscar Bullard CNP Work Phone: mthz LaboratoryComment on above:Right upper quadrant abdominal painStart: 10-03-2019 End: 73-64-5058Pvgpeghlhz hospital visit by Oscar Bullard CNP Work Phone: mthz EKGStart: 08-22-2019 End: 61-57-9061Amwbbiccib hospital visit by [facility] Nuclear MedicineComment on above:ArrivedGeneralized abdominal pain Start: 08-16-2019 End: 90-26-4362Gxnggemewu hospital visit by [facility] Nuclear MedicineComment on above:Generalized abdominal painStart: 08-03-2019 End: 96-74-2686Srfujswhkk hospital visit by [facility] Ultrasound Room 2 At [facility] UltrasoundComment on above:ThyromegalyStart: 07-30-2019 End: 69-89-9748Wkcxeugcsw hospital visit by Destini Cat Scan [facility] CT ScanComment on above:Abdominal pain, unspecified abdominal locationStart: 07-20-2019 End: 12-10-1190Pdhvjxttdc hospital visit by Oscar [facility] Start: 07-13-2019 End: 65-88-9001Yoyunekteq hospital visit by Oscar [facility] Comment on above:Diabetes mellitus type 2 with complications, uncontrolled (HCC) Start: 06-04-2019 End: 01-65-4502Tdrcpbuyvz hospital visit by Oscar Lopez [facility] Comment on above:Diabetes mellitus type 2 with complications, uncontrolled (HCC) Procedures DateProcedureProcedure DetailPerforming ClinicianStart: 61-35-7589MFCTSWM, GIBRAN Everett MD Work Phone: Start: 10-03-7069LEEDJNM, GIBRAN Everett MD Work Phone: Start: 98-54-1253Tikbi metabolic panel calcium total Vivian W Might TELEPHONE STATION REPAIRER - RECEPTIONIST DOCTOR'S OFFICE Work Phone: Start: 11-89-7352OOXRTDV, WHOLE BLOODEmanuel Danielle MD Work Phone: Start: 36-66-8886Ox retroperitoneal real time w/image completeAli Ehsan Ardon MD Work Phone: Start: 92-38-6833BPESSOA, WHOLE BLOODEmanuel Danielle MD Work Phone: Start: 00-97-3886Errfrl ecg 1-3 leads w/interpretation & reportUnknown Provider ResultStart: 34-02-7004SEDAC METABOLIC PANEL W/ REFLEX TO MG FOR LOW KStefan Tristan MULLEN Work Phone: Start: 51-77-8775Jkxsfjgz kinase totalAli Ehsan Ardon MD Work Phone: Start: 22-18-6352WKECNAI, GIBRAN BLOODEmanuel Danielle MD Work Phone: Start: 52-37-4713YVBRTKI, WHOLE BLOODEmanuel Danielle MD Work Phone: Start: 02-97-7428QRVPHVW, WHOLE BLOODEmanuel Danielle MD Work Phone: Start: 05-30-2025 End: 75-41-6513Qjrxis ecg 1-3 leads w/interpretation & reportUnknown Provider ResultStart: 84-08-9949Unoe tthrc r-t 2d w/wom-mode compl spec&colr dSttierney Danielle MD Work Phone: Start: 56-98-2229VKPJFAX, WHOLE BLOODEmanuel Danielle MD Work Phone: Start: 61-83-7258LEAOC METABOLIC PANEL W/ REFLEX TO MG FOR LOW KStefan Tristan MULLEN Work Phone: Start: 65-51-6380Vkiij count complete auto&auto difrntl wbcSttierney Danielle MD Work Phone: Start: 80-90-9606Evwvi of troponin quantitative Inder Jhaveri MD Work Phone: Start: 36-70-4573Bzkpgtwepfwrj metabolic panel Inder Jhaveri MD Work Phone: Start: 94-28-3247Ghpbzuqtkf exam chest 2 views Inder Jhaveri MD Work Phone: Start: 31-52-2296Ytqtv of thyroid stimulating hormone tshChkevin Jhaveri MD Work Phone: Start: 28-29-3982Uwo routine ecg w/least 12 lds i&r onlyChkevin Jhaveri MD Work Phone: Start: 85-43-5992WSBMZ-19, RAPIDChkevin Jhaveri MD Work Phone: Start: 38-62-9619Pzngafgif influenzaChkevin Jhaveri MD Work Phone: Start: 56-60-8012Qkhhe panelGénesis Stoner TELEPHONE STATION REPAIRER - RECEPTIONIST DOCTOR'S OFFICE Work Phone: Start: 05-23-2025 End: 23-66-7701Uexvcezzqkjbo metabolic panelGénesis Stoner TELEPHONE STATION REPAIRER - [facility] Work Phone: Start: 15-40-9713Sfectyntdv glycosylated a1cJay [place] Work Phone: Start: 26-73-4621Dcohrmyyrz glycosylated a1cJay Chiquis Work Phone: Start: 64-82-2637Sgushtb blood reagent stripKhase A Mike DPM Work Phone: start: 25-50-8177Cuhdsht blood reagent stripMeenaase A Mike DPM Work Phone: start: 80-39-1778Fluqt count complete auto&auto difrntl wbcUrbano Zarina Angelique DPM Work Phone: Start: 92-06-6411Pnspfur blood reagent stripKhase A Mike DPM Work Phone: start: 13-77-0177Smrlpos blood reagent stripKhase A Mike DPM Work Phone: start: 30-91-6486Rciwopb blood reagent stripKhase A Mike DPM Work Phone: start: 12-94-9904Cbgpmyuxse examination tibia & fibula 2 viewsQuintimbo Merino DPM Work Phone: Start: 91-29-9824Aqsrxihmrwb during operationKhase A Mike DPM Work Phone: start: 09-14-2024 End: 56-41-6702Lfosezwisrb subtalarMeenaase A Mike DPM Work Phone: start: 09-14-2024 End: 21-69-7219Wnywhmg external fixation system under anesKhase A Mike DPM Work Phone: start: 09-14-2024 End: 08-89-7655Igpmdaq blood reagent stripKhase A Mike DPM Work Phone: start: 69-88-4994Mjmow metabolic panel calcium total Valerie Mg MD Work Phone: Start: 65-15-1985Axpvszu blood reagent stripKhase A Mike DPM Work Phone: Start: 95-54-6520Dczllbwy kinase totalLucas S Gus DPM Work Phone: Start: 66-35-2097XPNC/MYOGLOBINLucas S Gus DPM Work Phone: Start: 38-67-7136Ebuwgjz blood reagent stripKhase A Mike DPM Work Phone: Start: 62-59-8646Vifaacj blood reagent stripKhase A Mike DPM Work Phone: Start: 37-88-7062Cgrvbor blood reagent stripKhase A Mike DPM Work Phone: Start: 04-83-5572B-reactive proteinLucchelsie Weber DPM Work Phone: Start: 92-30-9894Hpcpnsn blood reagent stripKhase A Mike DPM Work Phone: Start: 72-38-0735Iaibwoq blood reagent stripKhase A Mike DPM Work Phone: Start: 07-13-3841Srchauz blood reagent stripKhase A Mike DPM Work Phone: Start: 37-05-6401Vmxdcnbtxkqmt metabolic panelBicheyanne Cleveland MD Work Phone: Start: 93-18-6997Uqnqopf blood reagent stripKhase A Mike DPM Work Phone: Start: 24-20-6533Lvvqecq blood reagent stripKhase A Mike DPM Work Phone: Start: 36-70-7843Nasohnc blood reagent stripKhase A Mike DPM Work Phone: Start: 83-97-8899Irroooz blood reagent stripKhase Agueda GoodwinMike DPM Work Phone: Start: 43-07-0349Avlkpssdzf glycosylated z2pMbcmjchelsie Weber DPM Work Phone: Start: 14-57-5517Szosjdc blood reagent stripKhase Agueda Mike DPM Work Phone: Start: 23-43-0459Ospqkwc blood reagent stripKhase A Mike DPM Work Phone: Start: 07-23-2024 End: 80-50-4895Pgnrjhhyqd examination tibia & fibula 2 viewsLucchelsie S Gus DPM Work Phone: Start: 36-03-3871Pnoxlch blood reagent stripKhase A Mike DPM Work Phone: Start: 20-66-4183Iwuatmvlqrg during operationKhase Agueda Mike DPM Work Phone: Start: 07-23-2024 End: 47-86-2206Nqfkarefvkr uniplane external fixation systemMeenaase Agueda Mike DPM Work Phone: Start: 07-23-2024 End: 34-30-3462Gyl skel fixj metar fx w/manjKhase Agueda iMke DPM Work Phone: Start: 07-23-2024 End: 89-39-2716Qxevucizi serum plasma/whole bloodPatricia Bethanie Chapa TELEPHONE STATION REPAIRER - RECEPTIONIST DOCTOR'S OFFICE Work Phone: Start: 38-96-8090Dpcum metabolic panel calcium total Phil Pamela Herrera MD Work Phone: start: 26-95-3580Goilq foot complete minimum 3 views Zora Martinez DPM Work Phone: Start: 69-23-7012AGHZNUR, WHOLE BLOODJaveria J Ken DO Work Phone: Start: 39-28-2003Sy lower extremity w/o contrast materialJaveria J Ken DO Work Phone: Start: 11-14-1431Hbxja foot complete minimum 3 views Karime Ken DO Work Phone: Start: 38-86-4531Onjvy metabolic panel calcium total Vivian W Might TELEPHONE STATION REPAIRER - RECEPTIONIST DOCTOR'S OFFICE Work Phone: Start: 01-66-3362Zy maxillofacial w/o contrast materialBrett W Might TELEPHONE STATION REPAIRER - RECEPTIONIST DOCTOR'S OFFICE Work Phone: Start: 10-00-7764Rikax of thyroid stimulating hormone tshRolan Sim Work Phone: Start: 68-05-0856Jitrzmkury exam chest 2 viewsBrett W Might TELEPHONE STATION REPAIRER - RECEPTIONIST DOCTOR'S OFFICE Work Phone: Start: 20-77-1364Fd head/brain w/o contrast material Vicki Finnegan PA-C Work Phone: Start: 94-35-2906Iexcxtxraccjo metabolic panelKelly Y Finnegan PA-C Work Phone: Start: 16-04-5581Zeetzqddyw exam chest single view Vicki Conti Finnegan PA-C Work Phone: Start: 63-92-7083FQIUXTD, WHOLE BLOODEmanuel Danielle MD Work Phone: Start: 90-72-2980ZRHTQRG, GIBRAN BLOODSttierney Danielle MD Work Phone: Start: 66-22-7231YSRHX METABOLIC PANEL W/ REFLEX TO MG FOR LOW KStefan Tristan MULLEN Work Phone: Start: 05-31-7186Ggvvw count complete auto&auto difrntl wbcSttierney Danielle MD Work Phone: Start: 99-51-0786OZRMFZD, WHOLE BLOODEmanuel Danielle MD Work Phone: Start: 86-31-0924AHXWTAB, WHOLE BLOODEmanuel Danielle MD Work Phone: Start: 91-60-7570YAWRAYE, GIBRAN BLOODEmanuel Danielle MD Work Phone: Start: 93-12-4783JCJSPFL, WHOLE BLOODSttierney Danielle MD Work Phone: Start: 06-13-2023 End: 58-54-8480Wzbgnp ecg 1-3 leads w/interpretation & reportUnknown Provider ResultStart: 30-97-5592QBWHT METABOLIC PANEL W/ REFLEX TO MG FOR LOW KStefan Tristan MULLEN Work Phone: Start: 87-94-7109Kzoys count complete auto&auto difrntl wbcEmanuel Danielle MD Work Phone: Start: 08-86-5621GGLMHVS, WHOLE BLOODSttierney Danielle MD Work Phone: Start: 13-70-1629TEMCBCM, WHOLE BLOODSttierney Danielle MD Work Phone: Start: 96-18-5173IIHVLBA, WHOLE BLOODSttierney Danielle MD Work Phone: Start: 74-73-5406VRMMLFU, WHOLE BLOODSttierney Danielle MD Work Phone: Start: 06-12-2023 End: 85-57-4371Npdpqr ecg 1-3 leads w/interpretation & reportUnknown Provider ResultStart: 45-58-0819HMXGQ METABOLIC PANEL W/ REFLEX TO MG FOR LOW KSerikafan Tristan MULLEN Work Phone: Start: 25-83-7806Hsblv count complete auto&auto difrntl wbcEmanuel Danielle MD Work Phone: Start: 64-28-6980LDFOKZM, WHOLE BLOODSttierney Danielle MD Work Phone: Start: 85-10-2485ZNFNNUD, WHOLE BLOODSttierney Danielle MD Work Phone: Start: 63-96-7066UKEWQSG, WHOLE BLOODStefsumaya Danielle MD Work Phone: Start: 15-88-4732ONPMYML, WHOLE BLOODSttierney Danielle MD Work Phone: start: 75-00-2768PWITFUJ, WHOLE BLOODStefsumaya Danielle MD Work Phone: Start: 06-11-2023 End: 58-90-4541Emdyhy ecg 1-3 leads w/interpretation & reportUnknown Provider ResultStart: 29-70-4982VIFWC METABOLIC PANEL W/ REFLEX TO MG FOR LOW KSmackenzie Danielle MD Work Phone: Start: 93-29-4844Orwxbvruzep peptideSmackenzie Danielle MD Work Phone: Start: 31-87-5968CIODXIG, SEPSISSean Ray MDStart: 53-46-9198Fnmocwqhmrxfb (pct)Emanuel Danielle MD Work Phone: Start: 71-30-1489Dyojqxm bacterial blood aerobic w/id isolatesSean Ray MDStart: 59-92-4941Nevoy of troponin quantitativeSesumaya Segundo MD Start: 95-26-8108QGINMGB, BLOOD 1Sean Ray MDStart: 09-86-6367TKWQBMR, SEPSISSean Ray MDStart: 46-60-4901Xo thorax w/contrast materialSean Ray MDStart: 20-44-7478Ritofnvkev exam chest 2 viewsSean Ray MDStart: 60-77-4118Kr cervical spine w/o contrast materialSean Ray MDStart: 53-23-1377Zx head/brain w/o contrast materialSean Ray MDStart: 20-64-2301HWZWX-19, RAPIDSean Ray MDStart: 35-55-8449Wobelplajuuyu metabolic panelSean Ray MDStart: 26-31-0118Zed routine ecg w/least 12 lds i&r onlySean Ray MDStart: 95-56-9969Jee spinal canal thoracic w/o contrast Warren Brady MD Work Phone: Start: 77-60-9673PTXCPJK, WHOLE BLOODTari Curtis MD Work Phone: Start: 12-08-2022 End: 58-87-0386UsomddppogkXfdotf N Chidi MD Work Phone: Start: 40-57-2585Xaa spinal canal lumbar w/o contrast materialJill C Gamez TELEPHONE STATION REPAIRER - TRAVELING PHLEBOTOMIST Work Phone: Start: 53-52-2604CNED Antigen (LFIA)Start: 09-29-2022 NM TILT TABLE TESTBrett W Might TELEPHONE STATION REPAIRER - RECEPTIONIST DOCTOR'S OFFICE Work Phone: Start: 68-82-4391Oytva albumin quantitativeBrett W Might TELEPHONE STATION REPAIRER - RECEPTIONIST DOCTOR'S OFFICE Work Phone: Start: 34-60-8305Edqyu panelBrett W Might TELEPHONE STATION REPAIRER - RECEPTIONIST DOCTOR'S OFFICE Work Phone: Start: 09-21-2022 End: 76-27-4546Hcmry metabolic panel calcium totalBrett W Might TELEPHONE STATION REPAIRER - RECEPTIONIST DOCTOR'S OFFICE Work Phone: Start: 63-19-6819Nkivk of troponin quantitativeYusef A Hammuda PA-C Work Phone: Start: 29-22-7370Bwr routine ecg w/least 12 lds w/i&r Shan A Hammuda PA-C Work Phone: Start: 62-33-8863Rydsnvvvza exam chest single view Shan A Hammuda PA-C Work Phone: Start: 22-20-5979Hpzvh metabolic panel calcium total Shan A Hammuda PA-C Work Phone: Start: 69-61-5383Scd routine ecg w/least 12 lds w/i&r Shan A Hammuda PA-C Work Phone: Start: 72-20-8009Ep abdominal real time w/image limitedTari Curtis MD Work Phone: Start: 65-18-9305PztbpjbncykiuHiyblz N Chidi MD Work Phone: Start: 29-78-3669Wemnrizqi b surf antibody hbsabTari Curtis MD Work Phone: Start: 63-48-2494Fph-invasive physiologic study extremity 3 levlsVivian Combs [employer] Work Phone: Start: 20-86-3278Uydiwabgk mammography bi 2-view breast inc cadBredino Combs [employer] Work Phone: Start: 12-43-1396Njywuibvkasml metabolic panelJelexie Willett TELEPHONE STATION REPAIRER [employer] Work Phone: Start: 51-51-7339Ljmahayqc b core antibody hbcab total Claudia Willett [employer] Work Phone: Start: 24-12-5114Pbpl ia hepatitis b surface antigen Claudia Willett TELEPHONE STATION REPAIRERGPMESS Work Phone: Start: 62-50-9656Mkicluq function panelVivian Combs [employer] Work Phone: Start: 15-66-5247Ozdlz dip stick/tablet reagent auto microscopyBecristy Combs [employer] Work Phone: Start: 15-09-3156Pwrbbpvcca exam abdomen 1 viewBecristy Combs [employer] Work Phone: Start: 35-26-2386Mk lumbar spine w/contrast material Jasper Cleveland MD Work Phone: Start: 63-29-6906Heayx panelRolan Sim Work Phone: Start: 50-43-6083Pd head/brain w/o contrast material Vivian W [employer] Work Phone: Start: 98-42-4212Aiqbvbzxog exam abdomen 1 viewBecristy Combs [employer] Work Phone: Start: 77-23-7515Ruzah of free thyroxineMichael S Zimmerman Work Phone: Start: 96-86-4385Gkgdh of gammaglobulin iga igd igg igm eachMichael S Zimmerman Work Phone: Start: 93-38-6437Mlgra of thyroid stimulating hormone tshMichael S Zimmerman Work Phone: Start: 49-79-5660Nlaqm of thyroxine totalMichael S Zimmerman Work Phone: Start: 91-03-7604J-reactive proteinMichael S Zimmerman Work Phone: Start: 10-73-5937Cfzfrxrd kinase totalMichael S Zimmerman Work Phone: Start: 24-94-8510Jdcxikgecy glycosylated r8kXhjiqby S Zimmerman Work Phone: Start: 60-56-0528Owpnsuw dehydrogenase ldhMichael S Zimmerman Work Phone: Start: 66-52-9599Nrxpogxgvearv rate rbc automated Mario Alberto S Zimmerman Work Phone: Start: 52-94-8459Bw abdominal real time w/image limitedFlip Srinivasan Dea TELEPHONE STATION REPAIRER - [facility] Work Phone: Start: 00-22-9139Wrbpf metabolic panel calcium total Flip Srinivasan Dea TELEPHONE STATION REPAIRER - [facility] Work Phone: Start: 54-19-3466Npc routine ecg w/least 12 lds w/i&r Jasper Cleveland MD Work Phone: Start: 34-65-8920WWA REPORTHpf ScanningStart: 10-78-9656Ojsmjnp emptying imaging studyBrett W Might Work Phone: Start: 75-52-0954Qu soft tissue head & neck real time imge Samaria Olivera Work Phone: Start: 32-45-0678Pu abdomen & pelvis w/contrast materialCurtis Jean Work Phone: Start: 56-21-2704Vasmu of lipaseCurtis Jean Work Phone: Start: 65-45-4570Ynizk count complete auto&auto difrntl wbcCurtis Jean Work Phone: Start: 86-26-3072Sanqamhzlftjv metabolic panelBrian B Baggott Work Phone: Start: 90-87-9309Uviwyqbgva glycosylated p6fFdzur B Baggott Work Phone: Start: 42-51-1518Zrmotln tolerance test gtt 3 specimensBrett W Might Work Phone: Start: 27-95-2758Jbedy metabolic panel calcium total Vivian W Might Work Phone: Start: 45-92-5736Zcemacsdtm glycosylated l2aDcrfi W Might Work Phone: Start: 33-70-1068Tbtdh panelBrett W Might Work Phone: Start: 08-46-8129Fvmtxwjajbr direct measurement ldl cholesterolBrett W Might Work Phone: Start: 41-39-5119Anrnzlvfurk observation [Identifier] in Cervix by Cyto Rhiannon Nam PT Plan of Treatment DateCare ActivityDetailAuthorStart: 07-84-0824Riowvnjowaml 0-64 years Vaccine (2 of 2 - PPSV23)Pneumococcal 0-64 years Vaccine (2 of 2 - PPSV23)[facility]erral [facility] (PRN) Start: 82-62-9583Thwunlpnijqj 0-64 years Vaccine (2 of 2)Pneumococcal 0-64 years Vaccine (2 of 2)Physician Referral Network (PRN) Work Phone: start: 46-93-2871Sbbaqbidi for malignant neoplasm of colonBON YAVAPAI REGIONAL MEDICAL CENTEREggrock PartnersStart: 10-04-9347YQE test (Diabetes, CKD 3-4, OR last GFR 15-59)GFR test (Diabetes, CKD 3-4, OR last GFR 15-59)[facility] ConnectloudStart: 96-27-5666PEKVB-19 Vaccine ( season)COVID-19 Vaccine ( season)XookerComment on above:Postponed from 05/27/2025 (Patient Refused)Start: 05-54-1979Vfmjuxeprk MonitoringDepression MonitoringBon [facility]al HealthPVC RecyclingStart: 82-09-0141Qfjnydflf B vaccine (1 of 3 - 19+ 3-dose series)Hepatitis B vaccine (1 of 3 - 19+ 3-dose series)[facility] on above:Postponed from 02/29/1992 (Patient Refused)Start: 18-27-9720AKE screeningHIV screenBon [facility] on above: Postponed from 02/29/1988 (Patient Refused)Start: 67-79-7369Bmfobalz vaccine (2 of 2)Shingles vaccine (2 of 2)[facility] on above:Postponed from 05/20/2023 (Unavailable)Start: 90-32-9255SPL test (Diabetes, CKD 3-4, OR last GFR 15-59)GFR test (Diabetes, CKD 3-4, OR last GFR 15-59)[facility] VCUart: 13-04-1151KJC test (Diabetes, CKD 3-4, OR last GFR 15-59)GFR test (Diabetes, CKD 3-4, OR last GFR 15-59)[facility]art: 05-23-2026 GFR test (Diabetes, CKD 3-4, OR last GFR 15-59)GFR test (Diabetes, CKD 3-4, OR last GFR 15-59)[facility]art: 17-32-2717Ncjtw panelLipidsBon [facility] Hospitalart: 89-12-0809Mstpq screening for proteinDiabetic Alb to Cr ratio (uACR) testBon [facility] on above:Postponed from 03/23/2025 (Not Indicated)Start: 04-96-5865Glnoufwauq MonitoringDepression MonitoringBon [facility] Hospitalart: 96-40-9530Ewwybtzhvy A1c rucigkzcoejL4I test (Diabetic or Prediabetic)[facility]: 01-25-2026 Hemoglobin A1c esbwwyxvmcaR9O test (Diabetic or Prediabetic)[facility]: 15-46-5275Vxefcjryjj MonitoringDepression MonitoringBon [facility]: 01-76-9240Amguhnuca for malignant neoplasm of colonDickenson Community Hospitalart: 12-05-2025 End: 30-21-4591Yaldzpw encounter bnzweybzk38/12/2026 2:00 PM EDT Office Visit [facility] CARDIOLOGY Part of [address] [address] Nathan Ardon MD [address] [place] [phone] 6 month follwo [facility] CARDIOLOGY Part of [facility] HospitalComment on above:6 month follwo upStart: 77-31-7081Bkbyeswtaf MonitoringDepression MonitoringBon [facility]Start: 14-51-5074JQdX/Tdap/Td vaccine (1 - Tdap)DTaP/Tdap/Td vaccine (1 - Tdap)Bon [facility] ClinicComment on above:Postponed from 02/29/1992 (Patient Refused)Start: 26-78-2732Zqixesjancky 50+ years Vaccine (2 of 2 - PCV) Pneumococcal 50+ years Vaccine (2 of 2 - PCV)Bon [facility] ClinicComment on above:Postponed from 05/10/2019 (Patient Refused)Start: 10-24-2025 End: 32-74-6425Vfnzguf encounter zazkdufls34/29/2026 1:00 PM EST Office Visit [facility] UROLOGY Part of [address] [place] [phone] Preethi Garcia, TELEPHONE STATION REPAIRER - RECEPTIONIST DOCTOR'S OFFICE [address] [place] [address] [address] [place], [place] [phone] 3M [facility] Part [facility]lord HospitalComment on above:3M KUB Start: 50-13-1334Vxglthgxip A1c uryaqbuwvhaX5M test (Diabetic or Prediabetic)Bon [facility] ClinicStart: 10-10-2025 End: 45-67-6675Mzfsank encounter umbrztogk52/15/2026 4:00 PM EST Appointment [facility] Mammography [address] [place], [place] [phone] epic/ptMmercy health anderson hospitalAmerican Hometown [facility] MammographyComment on above:epic/pt Start: 10-08-2025 End: 63-01-7028Suexkrq encounter vpwhkeagx88/13/2026 1:20 PM EST Office Visit [facility] CARDIOLOGY Part [address] [address] Nathan Ardon MD [address] [place] [address] [place] [address] 3 [facility] on above:3 month follow upStart: 90-73-8778DAG test (Diabetes, CKD 3-4, OR last GFR 15-59)GFR test (Diabetes, CKD 3-4, OR last GFR 15-59)[facility]: 09-07-2025 GFR test (Diabetes, CKD 3-4, OR last GFR 15-59)GFR test (Diabetes, CKD 3-4, OR last GFR 15-59)[facility]: 09-03-2025 End: 47-80-3324Vulupfj encounter iddaooqai97/09/2025 2:00 PM EST Office Visit [facility] CARDIOLOGY [address] [address] Nathan Ardon MD [address] [place] [address] [place] [address] [facility] on above:3 monthStart: 08-21-2025 End: 96-39-7186Yqxfrxa encounter mtssylpqr96/26/2025 2:[address] [facility] Specialty Clinic (MOB) [address] [place], [place] [phone] Allergy injections. Dr Dixon.[facility] Specialty Clinic (MOB)Comment on above: Allergy injections. Dr Dixon.Start: 08-15-2025 End: 42-92-7710Pbsgjod encounter gtvaapmcz97/20/2025 2:[address] [facility] Specialty Clinic (MOB) [address] [place] [address] [address] Specialty Clinic (MOB)Comment on above: Allergy injections. Dr Dixon.Start: 98-35-0445Lablmuyg screeningDiabetic retinal examInova Fair Oaks Hospital on above:Postponed from 10/17/2020 (Patient Refused)Start: 08-08-2025 End: 66-43-5660Ttkgxfc encounter qdtaqyahk89/13/2025 2:[address] [facility] Specialty Clinic (MOB) [address] [place] [address] Dixon[address] ([facility]Comment on above: Allergy injections. Dr Dixon.Start: 08-01-2025 End: 90-68-0292Qcewaii encounter /06/2025 2:[address] [facility] Specialty Clinic (MOB) [address] [place] [address] ([facility]Comment on above: Allergy injections. Dr Dixon.Start: 07-29-2025 End: 20-29-3226Axstihl encounter procedureThe [facility] MRIComment on above:media sched w ptStart: 55-65-6617IGS test (Diabetes, CKD 3-4, OR last GFR 15-59)GFR test (Diabetes, CKD 3-4, OR last GFR 15-59)[facility] Start: 07-25-2025 End: 74-07-0154Yqpinzu encounter npdbmuosz48/30/2025 2:[address] [facility] Specialty Clinic (MOB) [address] [place] [address] Dixon[address] Specialty Clinic ([facility])Comment on above: Allergy injections. Dr Dixon.Start: 95-97-7959Reylzisqhf A1c jxwnindakfvT2T test (Diabetic or Prediabetic)[facility]burgStart: 07-23-2025 End: 58-01-8273Sjklxvlmr to same day surgery ydihnq9707/23/2025 7:30 AM EDT - 07/23/2025 8:[address] [facility] OR [address] [place] [address] Florida Everett MD [address] [place] [address], [address] [place] [address] EXTRACORPOREAL SHOCK WAVE LITHOTRIPSYMT ORComment on above:EXTRACORPOREAL SHOCK WAVE LITHOTRIPSYStart: 07-23-2025 End: 25-79-6823Wisyqclnfke xtrcorp shock [facility] HospitalStart: 94-43-9958Pacbqqqoeh hospital visit by llxlfisrv91/28/2025 7:30 AM EDT Hospital Encounter [facility] OR [address] [phone] Florida Everett MD [address] [facility], [address] [place] [address] [facility] ORStart: 74-16-5606UOU test (Diabetes, CKD 3-4, OR last GFR 15-59)GFR test (Diabetes, CKD 3-4, OR last GFR 15-59)Bon [facility]al HealthAlta AnalogSentara RMH Medical CenterStart: 07-18-2025 End: 32-21-1984Lvurcqq encounter nixpnucsx92/23/2025 1:45 PM EDT Office Visit [facility] Podiatry [address] [facility] [address] [place] [phone] Meera Mike DPM [address] [facility] [address] [place] [address] 3 MONTHSForest [facility] Hospital Podiat[facility] Comment on above:3 MONTHSStart: 07-17-2025 End: 02-78-1455Cfxvehx encounter procedureST. [facility] (MOB)Comment on above:Allergy injections. Dr Dixon.Media/scheduled with ptStart: 07-16-2025 Influenza vaccinationFlu vaccine (#1)Bon CellumenSentara RMH Medical CenterComment on above: Postponed from 04/26/2025 (Unavailable)Start: 29-41-8571Gysjndjz foot examinationDiabetic foot examBon SecAlta AnalogSentara RMH Medical CenterStart: 07-04-2025 End: 03-25-9815Mtxtqld encounter dyiqvraok85/09/2025 2:30 PM EDT Appointment [facility] Mammography [address] [place], [place] [phone] epic/ptMercy [facility] Hospital MammographyComment on above:epic/pt Start: 21-76-9466OYO test (Diabetes, CKD 3-4, OR last GFR 15-59)GFR test (Diabetes, CKD 3-4, OR last GFR 15-59)Bon CellumenSentara RMH Medical CenterStart: 06-19-2025 End: 66-22-7674Ernabkg encounter /24/2025 1:[address] [facility] Specialty Clinic ([facility] [address] [place], [place] [phone] Allergy injections. Dr Dixon.[facility] Specialty Clinic ([facility])Comment on above: Allergy injections. Dr Dixon.Start: 06-14-2025 End: 26-00-1050Jvgxftp encounter /19/2025 5:15 PM EDT Appointment [facility] CT Scan [address] [phone] Nathan Ardon MD [address] [place] [phone] epic - omar w/ [facility] CT ScanComment on above: epic - omar w/ ptStart: 06-12-2025 End: 37-09-1549Ciwjcot encounter jkayidajf61/17/2025 2:40 PM EDT Office Visit [facility] [address] [phone] Vivian Lemos, TELEPHONE STATION REPAIRER - RECEPTIONIST DOCTOR'S OFFICE [address] [place] [address] hospital f/u-heart murmur and lightheaded,acute kidney injuryRegional Medical Center TiffinComment on above:hospital f/u-heart murmur and lightheaded,acute kidney injuryStart: 58-40-0906SZUWK-19 Vaccine ( season)COVID-19 Vaccine ( season)Bon Zavedenia.[facility] City HospitalComment on above:Postponed from 05/27/2024 (Unavailable)Start: 82-72-4183RUWAI-19 Vaccine ()COVID-19 Vaccine ( season)Bon Zavedenia.[facility] City HospitalComment on above:Postponed from 05/27/2024 (Unavailable)Start: 06-11-2025 Hepatitis B vaccine (1 of 3 - 19+ 3-dose series)Hepatitis B vaccine (1 of 3 - 19+ 3-dose series)Bon Zavedenia.com HealthComment on above:Postponed from 02/29/1992 (Patient Refused)Start: 36-19-5261YEM screeningHIV screenBon [facility] ClinicComment on above:Postponed from 02/29/1988 (Patient Refused)Start: 72-69-1262Vaijsyyw vaccine (2 of 2)Shingles vaccine (2 of 2)Bon [facility] ClinicComment on above:Postponed from 05/20/2023 (Patient Refused)Start: 80-51-9969Fehkucbfjt A1c ydbdbjsbxokZ9I test (Diabetic or Prediabetic)Bon [facility] ClinicStart: 06-07-2025 End: 69-33-6747Jezvh metabolic 2000 panel - Serum or PlasmaBasic Metabolic Panel Lab Routine BAILEE (acute kidney injury) Expected: 06/07/2025, Expires: 05/31/2026 Bon [facility] ClinicComment on above:Expected: 06/07/2025, Expires: 05/31/2026Start: 06-04-2025 End: 53-76-9649Qldudly encounter fpditmtok26/09/2025 9:00 AM EDT Office Visit [facility] CARDIOLOGY Part [address] [address] Nathan Ardon MD [address] [place] [address] [place] [address] low BP/ med changesDELAWARE COUNTY HOS[facility]ITAL Part Gaylord HospitalComment on above:low BP/ med changesStart: 05-29-2025 End: 44-11-3743Ogxblqu encounter procedureMTHZ Physical TherapyComment on above: Allergy injections. Dr Dixon.Start: 99-73-2665CCSPC-19 Vaccine ( season)COVID-19 Vaccine ( season)[facility]Start: 05-24-2025 End: 61-08-1531Txyqvvp encounter aketekhnc03/29/2025 1:[address] [facility] Physical Therapy [address] [place] [address] Olivia Nam PT UPOCMTHZ Physical TherapyComment on above:UPOCStart: 05-23-2025 End: 73-67-0994Hrgphcw encounter procedureRIV[facility] Part of [facility] HospitalComment on above:1 year follow upAllergy injections. Dr Dixon. Start: 05-20-2025 End: 82-46-7211Frsbydm encounter rhoeugzkn52/25/2025 1:[address] [facility] Physical Therapy [address] [place] [address] Hussein Rich PTAMTHZ Physical TherapyStart: 08-80-8098Ujmgckowet MonitoringDepression MonitoringBON MIDDLETOWN HOSPITALStart: 01-77-3857Tryprwjrb vaccinationBON MIDDLETOWN HOSPITALComment on above:Postponed from 04/26/2024 (Patient Refused) Postponed from 04/26/2025 (Patient Refused)Start: 89-64-9284Eojgl panelLipidsRiverside Doctors' Hospital WilliamsburgComment on above:Postponed from 03/23/2025 (Not Indicated) Start: 05-16-2025 End: 32-41-4758Xdgdcqc encounter procedureST. [facility] Physical TherapyComment on above: Allergy injections. Dr Dixon.Start: 05-16-2025 End: 63-90-0854Vxpgfyt encounter /21/2025 11:20 AM EDT Office Visit [facility] [address] [place] [phone] Vivian Lemos, TELEPHONE STATION REPAIRER - RECEPTIONIST DOCTOR'S OFFICE [address] [place] [address] Abnormal bone density test. Figure out next steps and talk about my ears.//Auto CMeRinggold County HospitalComment on above:Abnormal bone density test. Figure out next steps and talk about my ears.//Auto CStart: 05-13-2025 End: 01-55-2736Dlifmyu encounter xtglcfedw02/18/2025 2:[address] [facility] Physical Therapy [address] [place] [address] Olivia Nam PTMTHZ Physical TherapyStart: 05-10-2025 End: 91-66-8394Kjyqmii encounter trsalhave67/15/2025 2:[address] [facility] Physical Therapy [address] [place], [place] [phone] RichHussein, PTAMTHZ Physical TherapyStart: 05-09-2025 End: 97-83-7783Xnlmkjy encounter procedureMTHZ Physical TherapyComment on above: Allergy injections. Dr Dixon.Start: 05-02-2025 End: 22-33-4148Jprttdm encounter procedureMercy Health West HospitalComment on above:epic/ptAllergy injections. Dr Dixon.Start: 04-30-2025 End: 91-42-9169Wozdovk encounter aartmaxpe67/05/2025 12:[address] [facility] Physical Therapy [address] [place] [address] Olivia Nam, PT UPOCMTHZ Physical TherapyComment on above:UPOCStart: 04-29-2025 Subsequent hospital visit by tjjylnurd44/04/2025 3:00 PM EDT Hospital Encounter [facility] Specialty Clinic (MOB) [address] [place], [place] [phone] [facility] Specialty Clinic (MOB)Start: 04-29-2025 End: 50-11-5898Znbidlr encounter procedureMTHZ Physical TherapyComment on above: Allergy injections. Dr Dixon.Start: 93-63-0539Jvnwxpngm vaccinationFlu vaccine (#1)[place] [facility]Start: 04-25-2025 End: 15-18-7239Lqioqct encounter nkkpbuojf57/31/2025 4:20 PM EDT Office Visit [facility] [address] [phone] Vivian Lemos, TELEPHONE STATION REPAIRER - RECEPTIONIST DOCTOR'S OFFICE [address] [place] [address] I m still having trouble with my ears.[facility] HospitalComment on above:I m still having trouble with my ears.Start: 04-25-2025 End: 89-90-1100Auqewwg encounter procedureMTHZ Physical TherapyComment on above: Allergy injections. Dr Dixon.Start: 04-22-2025 End: 88-76-2426Qsmekvm encounter procedureMTHZ Physical TherapyComment on above: Allergy injections. Dr Dixon.Start: 04-18-2025 End: 63-40-0781Rafbuat encounter procedureMTHZ Physical TherapyComment on above: Allergy injections. Dr iDxon.Start: 04-17-2025 End: 95-38-3548Pjjdlyj encounter xsemayonk20/23/2025 2:15 PM EDT [facility] [address] [facility] [address] [place] [address] Meera Mike, DPM [address] [facility] [address] [place] [address] 8 weeksMerMunson Healthcare [facility]ling Hospital PodiatryComment on above:8 weeksStart: 04-15-2025 End: 70-13-3219Trgevch encounter procedureMTHZ Physical TherapyComment on above: Allergy injections. Dr Dixon.Start: 04-12-2025 End: 10-27-4850Oisixdi encounter gijdcjqhg75/18/2025 3:15 PM EDT Appointment [facility] MRI [address] [phone] media/ptMProMedica [facility] MRIComment on above:media/ptStart: 04-11-2025 End: 07-82-2844Ttioxhb encounter procedureMTHZ Physical TherapyComment on above: Allergy injections. Dr Dixon.Start: 04-08-2025 End: 17-65-5410Dcqgzto encounter beuarovqs43/14/2025 2:[address] [facility] Physical Therapy [address] [place] [phone] Alanna Chappell, PTAMTHZ Physical TherapyStart: 70-37-9891Xxdnqmfhtc Monitoring Depression MonitoringBON MIDDLETOWN HOSPITALStart: 72-96-7026Lhtpuwfa foot examinationDiabetic foot examBON [facility] Andersonart: 1973WDR test (Diabetes, CKD 3-4, OR last GFR 15-59)GFR test (Diabetes, CKD 3-4, OR last GFR 15-59)[facility]OSPITALStart: 63-56-2119Rytgzfclkg A1c lmsrfcregskZ6E test (Diabetic or Prediabetic)BON [facility] Andersonart: 15-81-6291Nmyvj panelLipidsBON MIDDLETOWN HOSPITALStart: 75-73-4291Gxnic screening for protein Diabetic Alb to Cr ratio (uACR) testBON MIDDLETOWN HOSPITALStart: 02-14-2025 End: 04-39-8813Nskpqbi encounter ztuqowmtc81/22/2025 3:00 PM EDT Office Visit [facility] [address] [place] [address] Meera Mike DPM [address] [place] [address] 6 WEEKSMerMunson Healthcare Grayling Hospital PodiatryComment on above:6 WEEKSStart: 01-29-2025 End: 70-70-0039Irotqbt encounter hpbkzncsa67/06/2025 10:[address] [facility] Physical Therapy [address] [place], [place] [phone] Olivia Block PT needs to schedule more. pre cert note inMTHZ Physical TherapyComment on above:needs to schedule more. pre cert note inStart: 01-24-2025 End: 99-63-4739Nprgcap encounter /01/2025 12:[address] [facility] Physical Therapy [address] [place], [place] [address] Alanna Chappell PTAMTHZ Physical TherapyStart: 01-22-2025 End: 90-46-3854Mjcsqea encounter laofjvhgt41/29/2025 11:[address] [facility] Physical Therapy [address] [place], [place] [phone] Hussein Rich PTAMTHZ Physical TherapyStart: 01-17-2025 End: 62-85-9184Crjxsjd encounter rkayarbkc08/24/2025 2:[address] [facility] Physical Therapy [address] [place] [address] Makayla Lozoya PTAMTHZ Physical TherapyStart: 01-14-2025 End: 75-51-6757Vspxwhg encounter hptyvwazs30/21/2025 12:[address] [facility] Physical Therapy [address] [place] [address] Makayla Lozoya PTAMTHZ Physical TherapyStart: 01-10-2025 End: 32-51-9755Gsrcjmf encounter lmbwqcqvu75/17/2025 1:[address] [facility] Physical Therapy [address] [place] [address] Hussein Rich PTAMTHZ Physical TherapyStart: 01-08-2025 End: 22-97-4606Jugeqjp encounter ppxgeqkxf08/15/2025 2:[address] [facility] Physical Therapy [address] [place] [address] Hussein Rich PTA upoc- olivia carlo patient, blocked him for 15 minutes at 2:30.[facility] Physical TherapyComment on above:upoc- olivia carlo patient, blocked him for 15 minutes at 2:30.Start: 01-03-2025 End: 19-08-8639Sejysno encounter proagsbbe03/10/2025 3:30 PM EDT Office Visit [facility] [address] [facility] [address] [place] [address] Meera Mike DPM [address] [place] [address] 6 WEEKSForest View Hospital PodiatryComment on above:6 WEEKSStart: 01-02-2025 End: 75-62-8818Siqgtzk encounter procedureMT Physical TherapyComment on above: KAVEH BAKER PTStart: 12-31-2024 End: 68-29-4991Edeihte encounter pxsdgwejk01/07/2025 12:[address] [facility] Physical Therapy [address] [place] [address] Alanna Chappell PTAMTHZ Physical TherapyStart: 12-26-2024 End: 38-66-1626Fgswznh encounter ehbzbgpsc20/02/2025 1:[address] [facility] Physical Therapy [address] [place] [address] Phu Mora Physical TherapyStart: 12-24-2024 End: 67-18-1841Jdhffns encounter yttyjhufd47/31/2025 12:[address] [facility] Physical Therapy [address] [place] [address] Alanna Chappell PTAMTHZ Physical TherapyStart: 12-19-2024 End: 04-72-0569Zmpqcle encounter procedureMTHZ Physical TherapyStart: 12-17-2024 End: 57-00-6698Niwtbge encounter anogvkhcv34/24/2025 12:[address] [facility] Physical Therapy [address] [place], [place] [phone] Alanna Chappell PTAMTHZ Physical TherapyStart: 12-12-2024 End: 19-30-2595Duhrtln encounter vtkejogew04/19/2025 1:[address] [facility] Physical Therapy [address] [place] [address] Phu Mora Physical TherapyStart: 12-10-2024 End: 06-75-5990Dehqzlw encounter vaexplobv48/17/2025 1:[address] [facility] Physical Therapy [address] [place], [place] [phone] Disha Escamilla PTAMTHZ Physical TherapyStart: 25-67-1050Rpevpkegem MonitoringDepression MonitoringBON MIDDLETOWN HOSPITALStart: 00-44-2025AIA test (Diabetes, CKD 3-4, OR last GFR 15-59)GFR test (Diabetes, CKD 3-4, OR last GFR 15-59)[facility]PITALStart: 12-05-2024 End: 48-16-5606Wjajpfd encounter kplwfveem82/12/2025 2:[address] [facility] Physical Therapy [address] [place] [address] Makayla Lozoya PTAMTHZ Physical TherapyStart: 12-03-2024 End: 06-46-8411Wyubhoa encounter xeogjrjam65/10/2025 12:[address] [facility] Physical Therapy [address] [place] [address] Makayla Lozoya PTAMTHZ Physical TherapyStart: 11-29-2024 End: 89-50-5033Bfugscb encounter irnxlhmtn55/06/2025 11:[address] [facility] Physical Therapy [address] [place] [address] Alanna Chappell PTAMTHZ Physical TherapyStart: 11-28-2024 End: 74-66-9535Arnqkpp encounter /05/2025 11:00 AM EST Office Visit [facility] [address] [place] [address] Vivian Lemos APRN - RECEPTIONIST DOCTOR'S OFFICE [address] [place] [address] sinus issuesRegional Medical Center TiffinComment on above: sinus issuesStart: 57-74-3573Tnugueqhyg A1c qjcwyouoxqnW8V test (Diabetic or Prediabetic)[facility]OSPITALStart: 10-25-2024 End: 16-33-8370Fcelmqr encounter wojrzallg52/30/2025 9:45 AM EST Office Visit [facility] Podiatry [address] [place] [phone] Meera Mike DPM [address] [address] 3RD POST OPForest [facility] Comment on above:3RD POST OPStart: 10-11-2024 End: 85-26-4717Aoradnw encounter cnsnamfwy81/16/2025 2:00 PM EST Office Visit [facility] Podiatry [address] [place] [phone] Meera Mike DPZarina [address] [address] 2ND POST [facility] Podiatry Comment on above:2ND POST OPStart: 10-01-2024 End: 08-90-3841Nhkvzyh encounter voavgltjp94/06/2025 2:00 PM EST Office Visit [facility] [address] [place] [phone] Vivian Lemos APRN - RECEPTIONIST DOCTOR'S OFFICE [address] [place] [address] 6 month f/uMercy Mountainstar Healthcare TiffinComment on above:6 month f/uStart: 41-94-1717LYzO/Tdap/Td vaccine (1 - Tdap)DTaP/Tdap/Td vaccine (1 - Tdap)[facility] HEALTH SYSTEMComment on above:Postponed from 02/29/1992 (Patient Refused)Start: 09-27-2024 End: 41-26-2516Zirigku encounter uskrcavqj76/02/2025 10:45 AM EST Office Visit [facility] [address] [place] [address] Meera Mike DPM [address] [place] [address] INITIAL POST OPForest View Hospital PodiatryComment on above:INITIAL POST OPStart: 09-14-2024 End: 62-90-9835Uokqvxdoc to same day surgery lhtvgo6009/14/2024 8:00 AM EST - 09/14/2024 11:00 AM EST Surgery [facility] OR [address] [place] [address] Meera Mike DPM [address] [place] [address] REMOVE EXTERNAL FIXATOR LEFT FOOT ST[facility] ORComment on above:REMOVE EXTERNAL FIXATOR LEFT FOOTStart: 09-14-2024 End: 26-24-3485Nkazvsyxwfr subtalarFOOT ARTHRODESIS Charcot ankle, left Diabetes (HCC) 09/14/2024 8:00 AM [facility] HospitalStart: 09-14-2024 End: 80-25-1038Wvsjmxb external fixation system under anesFOOT EXTERNAL FIXATOR REMOVAL Charcot ankle, left Diabetes (HCC) 09/14/2024 8:00 AM [facility] HospitalStart: 17-51-5159Pguexwdltz hospital visit by physician 09/14/2024 8:00 AM EST Hospital Encounter [facility] OR [address] [place] [address] BurjrgupeMeera Mike DPM [address] [place] [address] ST[facility] ORStart: 09-04-2024 End: 72-76-1542Msfnysy encounter ynjfeatep96/10/2024 2:30 PM EST Office [facility] [address] [place] [phone] Meera Mike, PRANAV [address] [facility] [place] [address] 2 WEEKSForest View Hospital PodiatryComment on above:2 WEEKSStart: 08-21-2024 End: 17-95-4131Anckikv encounter zffzswvir41/26/2024 2:00 PM EST Office Visit [facility] [address] [place] [phone] Meera Mike, PRANAV [address] [place] [address] 3RD POST OP [facility] PodiatryComment on above:3RD POST OPStart: 08-07-2024 End: 07-43-6189Opsaega encounter procedureLAKEHEALTH [facility] Part of [place] HospitalComment on above:Oropharyngeal dysphagia, lovskshx7NA POST OPStart: 45-56-1781Dlirj panelLipidsSENTARA VIRGINIA BEACH GENERAL HOSPITALStart: 16-36-0037Hqclu screening for proteinDiabetic Alb to Cr ratio (uACR) testSENTARA VIRGINIA BEACH GENERAL HOSPITALStart: 07-26-2024 End: 17-61-5902Ggtpoxo encounter /31/2024 8:00 AM EDT Office Visit [facility] [address] [place] [address] [phone] Meera Mike, PRANAV [address] [facility], [place] [phone] INITIAL POST OP [facility] PodiatryComment on above:INITIAL POST OPStart: 07-23-2024 End: 64-45-6659Sgvgfzepmej uniplane external fixation systemANKLE EXTERNAL FIXATOR APPLICATION Charcot ankle, left Closed dislocation of tarsal joint of left foot 07/23/2024 2:00 PM [facility]: 07-23-2024 End: 40-17-7382Vlu skel fixj metar fx w/manjFOOT CLOSED REDUCTION PINNING Charcot ankle, left Closed dislocation of tarsal joint of left foot 07/23/2024 2:00 PM [facility]art: 87-55-1857Axrzevso screening Diabetic retinal examB[facility]OU[facility] Tang Song HEALTHComment on above:Postponed from 10/17/2020 (Not Indicated)Start: 77-05-2143Xhwmdzqdvsjs 0-64 years Vaccine (2 - PCV)Pneumococcal 0-64 years Vaccine (2 - PCV)[facility] HEALTHComment on above:Postponed from 05/10/2019 (Patient Refused)Start: 79-18-4533Nrznwzvkzbmb 0-64 years Vaccine (2 of 2 - PCV)Pneumococcal 0-64 years Vaccine (2 of 2 - PCV) [facility] HEALTHComment on above:Postponed from 05/10/2019 (Patient Refused)Start: 11-95-9387KAG test (Diabetes, CKD 3-4, OR last GFR 15-59)GFR test (Diabetes, CKD 3-4, OR last GFR 15-59)[facility] HEALTHStart: 06-14-2024 GFR test (Diabetes, CKD 3-4, OR last GFR 15-59)GFR test (Diabetes, CKD 3-4, OR last GFR 15-59)[facility] SECGoowy HEALTHStart: 87-09-3469AYZUB-19 Vaccine (#1) COVID-19 Vaccine (#1)[facility] dynaTrace softwareY HEALTHComment on above:Postponed from 1973 (Not Indicated)Start: 08-41-7990ONSTE-19 Vaccine () COVID-19 Vaccine ( season)[facility] dynaTrace softwareY HEALTHComment on above: Postponed from 05/27/2023 (Not Indicated)Start: 82-30-3129Aovrudun foot examinationDiabetic foot examB[facility] SECOU[facility] [employer] HEALTHComment on above:Postponed from 03/18/2022 (Not Indicated)Start: 02-18-4865Fyzqyrhim B vaccine (1 of 3 - 19+ 3-dose series)Hepatitis B vaccine (1 of 3 - 19+ 3-dose series)[facility] Vayusa [facility]ITALComment on above:Postponed from 02/29/1992 (Not Indicated)Start: 91-55-1039Hnboweoia B vaccine (1 of 3 - 3-dose series)Hepatitis B vaccine (1 of 3 - 3-dose series)[facility] MED[facility] CENTERGoowy HEALTHComment on above:Postponed from 1973 (Not Indicated)Start: 16-98-0663TRU screeningHIV screenBON [facility] SAN DIEGOBrickell Biotech [facility] HOSPITALComment on above:Postponed from 02/29/1988 (Patient Refused)Start: 31-46-5125Mtqzkxbu vaccine (2 of 2)Shingles vaccine (2 of 2)[facility] Vayusa [facility] HOSPITALComment on above:Postponed from 05/20/2023 (Unavailable)Start: 05-16-2024 End: 86-64-6286Pzytrgh encounter ijucvtyon02/21/2024 1:40 PM EDT Office Visit [facility] CARD[facility] Part [address] [phone] Nathan Ardon MD [address] [place] [phone] 1 [facility] HospitalComment on above:1 yearStart: 05-03-2024 End: 04-66-7670Gfxcclo encounter /08/2024 1:[address] [facility] Physical Therapy [address] [place] [address] Phu Mora Physical TherapyStart: 05-01-2024 End: 98-88-5855Okootjw encounter vuroyupiz65/06/2024 2:[address] [facility] Physical Therapy [address] [place] [address] Phu Mora Physical TherapyStart: 37-33-8509Kzkcrmkie vaccinationBON SECPVC [employer]ing [facility] SYSTEMStart: 04-25-2024 End: 16-98-2225Ierpkjg encounter /31/2024 1:[address] [facility] Physical Therapy [address] [place] [address] Sonia Baum, PT UPOCMTHZ Physical TherapyComment on above:UPOCStart: 04-23-2024 End: 32-35-8847Spefrll encounter /29/2024 1:[address] [facility] Physical Therapy [address] [place] [address] Phu Mora Physical TherapyStart: 04-18-2024 End: 59-86-3838Wpzaapm encounter xfbirtsnw75/24/2024 3:[address] [facility] Physical Therapy [address] [place] [address] Phu Mora Physical TherapyStart: 04-16-2024 End: 63-98-5659Bidxvtl encounter jrsxwozlr31/22/2024 1:[address] [facility] Physical Therapy [address] [place] [address] Phu Mora Physical TherapyStart: 03-28-2024 End: 28-38-8718Mxhvczv encounter tmnylgjox06/03/2024 2:00 PM EDT Office Visit [facility] [address] [place] [phone] Vivian Lemos, TELEPHONE STATION REPAIRER - RECEPTIONIST DOCTOR'S OFFICE [address] [phone] 6 MONTHRegional Medical Center TiffinComment on above:6 MONTHStart: 94-34-2249Hupyimoez vaccinationFlu vaccine (#1)[facility] HOSPITALComment on above:Postponed from 04/26/2023 (Unavailable)Start: 03-24-2024 Depression MonitoringDepression MonitoringBON MIDDLETOWN HOSPITALStart: 45-16-0724Wfbdsopiag A1c oaeeflkslmjC3Q test (Diabetic or Prediabetic)[facility]OSPITALStart: 03-08-2024 End: 09-97-8038Qxfngew encounter pmbsunpot86/13/2024 1:[address] [facility] Physical Therapy [address] [place] [address] Phu Mora A NEW REFERRAL FOR SHOULDER PAIN. SENT REQUEST TO ORIGINAL REFERRING DOCTOR TO SIGN OFF ON ADDING IT TO POCOKHZ Physical TherapyComment on above:NEW REFERRAL FOR SHOULDER PAIN. SENT REQUEST TO ORIGINAL REFERRING DOCTOR TO SIGN OFF ON ADDING IT TO POCStart: 03-06-2024 End: 28-48-8428Zwkdpsw encounter zcrqjikij65/11/2024 1:15 PM EDT Office Visit [facility] [address] [place] [address] Roxie Martini, DO [address] [place] [address] follow [facility] HospitalComment on above:follow upStart: 2024 End: 81-41-2843Wiwxndi encounter jawrakfyh52/04/2024 1:[address] [facility] Physical Therapy [address] [place] [phone] Génesis Hickman, PTAMTHZ Physical TherapyStart: 02-23-2024 End: 98-68-7699Fxmtsqd encounter mcbdcufwi30/30/2024 3:[address] [facility] Physical Therapy [address] [place] [address] Lary Rea, PTAMTHZ Physical TherapyStart: 02-14-2024 End: 05-31-8155Kylfmym encounter mlkjkjqmo55/21/2024 3:[address] [facility] Physical Therapy [address] [place] [address] Sahara Strauss, PTMTHZ Physical TherapyStart: 02-08-2024 End: 81-60-9063Dnonksr encounter ycjnotfcb84/15/2024 1:[address] [facility] Physical Therapy [address] [place] [address] Phu Mora AMTHSusan Physical TherapyStart: 02-06-2024 End: 67-68-4663Jyilpbc encounter rysjuspbz31/13/2024 12:[address] [facility] Physical Therapy [address] [place] [address] Dread Sunshine PTAMTHZ Physical TherapyStart: 02-01-2024 End: 69-39-9826Prkemik encounter listrplee29/08/2024 2:[address] [facility] Physical Therapy [address] [place] [address] Dread Sunshine PTAMTHZ Physical TherapyStart: 01-30-2024 End: 16-82-6492Zcwpyin encounter kwzdnbdym85/06/2024 2:[address] [facility] Physical Therapy [address] [place] [address] Phu Mora Physical TherapyStart: 01-25-2024 End: 51-88-3783Ixoythq encounter iiihwpbwg05/01/2024 2:[address] [facility] Physical Therapy [address] [place] [address] Phu Mora Physical TherapyStart: 01-23-2024 End: 07-84-6199Ucocuul encounter /29/2024 2:[address] [facility] Physical Therapy [address] [place] [address] Disha Escamilla PTAMTHZ Physical TherapyStart: 12-27-2023 End: 47-54-8958Uxjgtdw encounter zigjvxdbg97/02/2024 1:30 PM EDT Office Visit [facility] Part [address] [phone] Chen Rocha PA-C [address] [place] [address] leg edema, had labs done [facility] Part [facility] HospitalComment on above:leg edema, had labs doneStart: 09-28-2023 End: 14-43-3200Isrdeuc encounter mgmgkccej30/03/2024 3:40 PM EST Office Visit [facility] [address] [place] [phone] Vivian Lemos, TELEPHONE STATION REPAIRER - RECEPTIONIST DOCTOR'S OFFICE [address] [place] [address] 6 [facility] TiffinComment on above:6 monthStart: 42-81-4825Vbwoddgaot MonitoringDepression MonitoringSENTARA VIRGINIA BEACH GENERAL HOSPITALStart: 39-22-2405TNpG/Tdap/Td vaccine (1 - Tdap)DTaP/Tdap/Td vaccine (1 - Tdap)[facility] Hospitalment on above:Postponed from 02/29/1992 (Patient Refused)Start: 49-51-9696JIZ test (Diabetes, CKD 3-4, OR last GFR 15-59)GFR test (Diabetes, CKD 3-4, OR last GFR 15-59)[facility] Start: 75-02-3833Arhrcpivap A1c iagyxkaqdmaQ5C test (Diabetic or Prediabetic)[facility] Hospitalart: 25-49-6264Brdhc panelLipidsSENTARA [facility] BEACH [facility] Start: 41-34-4883Zikjy screening for proteinDiabetic Alb to Cr ratio (uACR) test [facility]OSPITALStart: 06-22-2023 End: 30-92-9595Jkfnavf encounter ojtahgbwx45/27/2023 8:40 AM EDT Office Visit [facility] [address] [place] [phone] Vivian Lemos, JOSSE - RECEPTIONIST DOCTOR'S OFFICE [address] [place] [address] Hospital f/u-PneumoniaRegional Medical Center TiffinComment on above:Hospital f/u-PneumoniaStart: 86-74-6755Sexhzodw retinal examDiabetic retinal examSENTARA VIRGINIA BEACH GENERAL HOSPITALComment on above:Postponed from 10/17/2020 (Not Indicated)Start: 22-18-8219Btybfnuv screeningDiabetic retinal examMary Washington Healthcare on above:Postponed from 10/17/2020 (Not Indicated) Start: 61-71-9738Ikeasktvtc MonitoringDepression MonitoringSENTARA VIRGINIA BEACH GENERAL HOSPITALStart: 77-38-4671Djtkjqrml vaccinationSENTARA VIRGINIA BEACH GENERAL HOSPITALComment on above:Postponed from 05/27/2022 (Patient Refused)Postponed from 04/26/2022 (Patient Refused)Postponed from 04/26/2023 (Patient Refused)Start: 05-20-2023 Shingles vaccine (2 of 2)Shingles vaccine (2 of 2)[facility]ITALStart: 05-16-2023 End: 25-81-4957Rsckkun encounter nqjprvqpi31/21/2023 Office Visit Cardiology Nathan Ardon MD [address] [place] [address] [facility] Part of [place] HospitalStart: 87-17-9182Gztozhkgr for malignant neoplasm of breastBreast cancer screenBON MIDDLETOWN HOSPITALStart: 03-30-2023 End: 17-92-0400Qmsnoxl encounter qdajirnpw37/05/2023 Office Visit Cardiology Nathan Ardon MD [address] [place] [address] [facility] Part of [place] HospitalStart: 03-24-2023 End: 53-58-1588Yqytorl encounter dsbgungsg08/29/2023 Office Visit Primary Care Vivian Lemos, TELEPHONE STATION REPAIRER - RECEPTIONIST DOCTOR'S OFFICE [address] [place], [place] [phone] (Work) [facility] Primary Care TiffinStart: 83-71-3180VCEVZ-19 Vaccine (#1)COVID-19 Vaccine (#1)[facility] HOSPITALComment on above: Postponed from 1973 (Not Indicated)Start: 14-97-6078JDOCR-19 Vaccine (1) COVID-19 Vaccine (1)[facility] HEALTHComment on above:Postponed from 1978 (Not Indicated)Start: 54-15-6230Txlxcbsgzo MonitoringDepression MonitoringB[facility] MIDDLETOWN HOSPITALStart: 22-08-4983Zqexfkjm foot examination Diabetic foot examBON MIDDLETOWN HOSPITALComment on above:Postponed from 03/18/2022 (Patient Refused)Start: 88-21-0387Bulhxtuehn A1c syczxleolnxC9T test (Diabetic or Prediabetic)[facility] MEDICAL CENTERGoowy [facility]ITALStart: 27-78-5161Sayknweop B vaccine (1 of 3 - Risk 3-dose series)Hepatitis B vaccine (1 of 3 - Risk 3-dose series)[facility] MEDICAL CENTERGoowy HEALTHComment on above:Postponed from 02/29/1992 (Patient Refused)Start: 96-36-9522XNF screeningHIV screenBON [facility] dynaTrace softwareCLEVELAND CLINIC FAIRVIEW HOSPITALComment on above:Postponed from 02/29/1988 (Patient Refused)Start: 63-94-8860Ncyytfqvtmok 0-64 years Vaccine (2 - PCV)Pneumococcal 0-64 years Vaccine (2 - PCV)[facility] MEDICAL CENTERGoowy [facility]OS[facility]ITALComment on above:Postponed from 05/10/2019 (Not Indicated)Start: 27-40-3352Bcofvqxqa for malignant neoplasm of lungLung Cancer Screening &/or CounselingBon [facility] [employer] [facility] HospitalStart: 01-19-2023 End: 59-19-7728Desysql encounter ftqmxboqi41/26/[address] [facility] Sleep CenterStart: 12-08-2022 End: 45-62-1547Szxzogyya to same day surgery [facility] ORComment on above: COLORECTAL CANCER SCREENING, NOT HIGH RISKStart: 12-08-2022 End: 67-92-1456Lbben ca scrn not hi rsk indSumma Health Barberton Campustart: 51-12-2537Bncpscvnsp hospital visit by physicianST. [facility] ORStart: 11-23-2022 End: 81-35-1147Hykkhgf encounter loglbimax63/28/[address] [facility] Sleep CenterStart: 68-47-4359Xyccnqbpar measurementCreatinine monitoring [facility] HospitalStart: 76-24-9080Sfusn panelPromedica Defiance Regional HospitalStart: 51-27-4265Vkjvghdfq monitoringPotassium monitoringPromedica Defiance Regional HospitalStart: 16-04-9139Ndbvg screening for proteinDiabetic microalbuminuria testWyandot Memorial Hospital HealthStart: 10-08-2022 End: 64-69-9614Qqxurhh encounter zcbyctbed29/13/2023 Appointment [facility]OR[facility] HOSPITALSusan EKG Start: 65-26-4914Ubjwydeisn hospital visit by cbflpojdv03/06/2023 Hospital Encounter Stress Lab Canceled (Other)[facility] Stress LabComment on above:Canceled (Other)Start: 09-23-2022 End: 63-94-5019Lxnnjxs encounter bsgqicvai63/29/2022 Office Visit Primary Care Vivian Lemos, TELEPHONE STATION REPAIRER - RECEPTIONIST DOCTOR'S OFFICE [address] [place], [place] [phone] (Work) [facility] Care WewahitchkaStart: 47-02-2977KYbM/Tdap/Td vaccine (1 - Tdap)DTaP/Tdap/Td vaccine (1 - Tdap)[facility] HealthComment on above: Postponed from 02/29/1992 (Patient Refused)Start: 80-67-3721Qyogjoeyp vaccinationFlu vaccine (#1)[facility] HospitalComment on above:Postponed from 05/27/2021 (Patient Refused)Start: 09-10-2022 End: 09-41-5159Yijgtll encounter hjcrqgyiu64/16/2022 Appointment LabTORRI Covid ScreeningStart: 08-06-2022 End: 62-22-5074Mudqcnm encounter vsnwnjvus30/11/2022 Appointment Physical Therapy Olivia Nam PTMTHZ Physical TherapyStart: 07-23-2022 End: 20-18-6472Ycvimvm encounter jyhgajdvx92/28/2022 Appointment Physical Therapy Olivia Nam PTMTHZ Physical TherapyStart: 07-22-2022 End: 79-79-5047Oiganwb encounter /27/2022 Appointment Physical Therapy Mulu Mccray PTAMTHZ Physical TherapyStart: 07-21-2022 End: 66-81-9886Feqqpzg encounter gkqvemxfb16/26/2022 Appointment Physical Therapy Karrie Beltran PTAMTHZ Physical TherapyStart: 07-19-2022 End: 73-17-5783Fqioizy encounter procedureRegency Hospital Cleveland Easttart: 07-16-2022 End: 84-54-0626Djucpkb encounter ssmkfjkzo82/21/2022 Appointment Physical Therapy Olivia Nam PTMTHZ Physical TherapyStart: 07-14-2022 End: 37-17-4586Ymvpdpj encounter /19/2022 Appointment Physical Therapy Karrie Beltran PTAMTHZ Physical TherapyStart: 07-13-2022 End: 68-23-8815Naqcnou encounter /18/2022 Appointment Physical Therapy Mulu Mccray PTAMTHZ Physical TherapyStart: 79-73-0616Afmxcggqww hospital visit by tlucgetwu81/18/2022 Hospital Encounter Physical Therapy Mulu Mccray PTAMTHZ Physical TherapyStart: 07-12-2022 End: 81-08-1628Dnsmdxo encounter procedureMTLAURA Physical TherapyStart: 07-08-2022 End: 67-72-5790Gteesem encounter teazziuum31/13/2022 Appointment Physical Therapy Olivia Nam PTMTHZ Physical TherapyStart: 07-07-2022 End: 34-44-2533Nbfyjvy encounter crgvejsxq06/12/2022 Appointment Physical Therapy Karrie Beltran PTAMTHZ Physical TherapyStart: 07-05-2022 End: 93-63-1605Wlxhnnt encounter rqfevukxj01/10/2022 Appointment Physical Therapy Karrie Beltran PTAMTHZ Physical TherapyStart: 07-02-2022 End: 95-42-6544Nqdmagd encounter /07/2022 Appointment Physical Therapy Olivia Nam PTMTHZ Physical TherapyStart: 06-30-2022 End: 89-07-6973Wuzjzvo encounter /05/2022 Appointment Physical Therapy Karrie Beltran PTAMTHZ Physical TherapyStart: 06-28-2022 End: 93-79-4352Ddhhorj encounter xzdjqeeih47/03/2022 Appointment Physical Therapy Karrie Beltran PTAMTHZ Physical TherapyStart: 06-24-2022 End: 97-68-0594Rzakxcp encounter ihmsujhll46/29/2022 Appointment Physical Therapy Olivia Nam PTMTHZ Physical TherapyStart: 06-21-2022 End: 33-57-3204Opvrrrp encounter wbdenccxy95/26/2022 Appointment Physical Therapy Génesis Hickman PTAMTHZ Physical TherapyStart: 55-44-7737Qvypyirict hospital visit by xgokyhmpv42/26/2022 Hospital Encounter Physical Therapy Génesis Hickman PTAMTHZ Physical TherapyStart: 06-18-2022 End: 86-13-1567Zjilmah encounter jyokvhxfe77/23/2022 Appointment Physical Therapy Karrie Beltran PTAMTHZ Physical TherapyStart: 06-16-2022 End: 51-57-2295Nrjsqur encounter /21/2022 Appointment Physical Therapy Karrie Beltran PTAMTHZ Physical TherapyStart: 06-14-2022 End: 59-85-5858Qzxzjwt encounter pwsfgwheo68/19/2022 Appointment Physical Therapy Karrie Beltran PTAMTHZ Physical TherapyStart: 06-11-2022 End: 75-09-1003Wlqucut encounter wokcduvbw94/16/2022 Appointment Physical Therapy Olivia Nam PTMTHZ Physical TherapyStart: 06-09-2022 End: 89-52-7468Spzawuu encounter gxrkmgbel09/14/2022 Appointment Physical Therapy Karrie Beltran PTAMTHZ Physical TherapyStart: 06-07-2022 End: 93-08-9198Bvkqbgg encounter qkidvoove68/12/2022 Appointment Physical Therapy Karrie Beltran PTAMTHZ Physical TherapyStart: 06-04-2022 End: 16-34-2423Qbtxcsa encounter zybewwdks08/09/2022 Appointment Physical Therapy Karrie Beltran PTAMTHZ Physical TherapyStart: 06-02-2022 End: 35-82-0810Uolrcja encounter vwhhqowct59/07/2022 Appointment Physical Therapy Karrie Beltran PTAMTHZ Physical TherapyStart: 13-81-9314Qksfdotnmh hospital visit by bjhrqimdy89/07/2022 Hospital Encounter Physical Therapy Karrie Beltran PTAMTHZ Physical TherapyStart: 05-28-2022 End: 14-65-4253Zujpqdt encounter qgfdybbco63/02/2022 Appointment Physical Therapy Olivia Nam PTMTHZ Physical TherapyStart: 05-27-2022 End: 62-54-0127Mzrkmws encounter /01/2022 Appointment Physical Therapy Olivia Nam PTMTHZ Physical TherapyStart: 93-32-7416Anhgtrwwb vaccinationFlu vaccine (#1)[facility]OSPITALStart: 05-27-2022 End: 53-23-3558Wwsfyks evaluation of patient and jftxiq4905/27/2022 Nurse Only General Surgery Binta Pearl I, DO [address] [place] [phone] [facility] GENER[facility]ERY Part [facility] HospitalStart: 05-25-2022 End: 05-99-1207Locustt encounter mfzkezfgg40/30/2022 Appointment Physical Therapy Nathan Garcia PTMTHZ Physical TherapyStart: 05-19-2022 End: 81-74-1186Yiwhajj encounter xcukkdpfn30/24/2022 Procedure visit General Surgery Binta Pearl I, DO [address] [place] [address] [facility] SURGERY Part [facility] HospitalStart: 05-12-2022 End: 29-31-2465Ibjfadi encounter aepqaclfc45/17/2022 Office Visit General Surgery Binta Pearl [place], DO [address] [place] [address] [facility] SURGERY Part [facility] HospitalStart: 73-27-7893Qatauvjo retinal examDiabetic retinal examMercy HealthComment on above:Postponed from 10/17/2020 (Not Indicated)Start: 98-89-2986Dwbsuals foot examinationDiabetic foot examMercy HealthStart: 18-53-6878Syoghiijq B vaccine (1 of 3 - Risk 3-dose series)Hepatitis B vaccine (1 of 3 - Risk 3-dose series)[facility] HospitalComment on above:Postponed from 02/29/1992 (Not Indicated)Start: 03-18-2022 End: 41-93-7702Oruhkgm encounter mrixccyng42/23/2022 Office Visit Primary Care Vivian Lemos, TELEPHONE STATION REPAIRER - RECEPTIONIST DOCTOR'S OFFICE [address] [place], [place] [phone] (Work) [facility] Primary Care [facility] ClinicfinStart: 23-73-5171Dxzoqgtgq for malignant neoplasm of cervixCervical cancer screenWyandot Memorial Hospital Health Work Phone: comment on above:Postponed from 06/02/2020 (Not Indicated)Start: 28-82-9309Hckitnslen measurementCreatinine monitoringWyandot Memorial Hospital [employer] Work Phone: start: 65-04-2758Yyxhtvzct monitoringPotassium monitoringWyandot Memorial Hospital Health Work Phone: start: 90-37-4503HBPMT-19 Vaccine (1)COVID-19 Vaccine (1)[facility] HospitalComment on above:Postponed from 1985 (Patient Refused) Postponed from 1978 (Patient Refused)Start: 74-87-3703Mvrfcctcj C screeningHepatitis C screenWyandot Memorial Hospital [employer] Work Phone: comment on above:Postponed from 1973 (Patient Refused)Start: 02-04-2022 End: 94-82-1023Zrpvyhr encounter procedureRIVERV[facility] Part [facility] Hospitaltart: 38-83-2212Upevnlxkdy A1c lwuvatnkcalO7U test (Diabetic or Prediabetic)[facility] HospitalStart: 10[facility] End: 96-03-3699eqyjambpox85/20/2022 Virtual Visit Gastroenterology Claudia Willett, TELEPHONE STATION REPAIRER - RECEPTIONIST DOCTOR'S OFFICE [address] [place] [address] [phone] [facility] GastroenterologyStart: 09-17-2021 End: 99-05-9471Tinmzgj encounter rpckntxse02/23/2021 Office Visit Primary Care Vivian Lemos, TELEPHONE STATION REPAIRER - RECEPTIONIST DOCTOR'S OFFICE [address] [place], [place] [phone] [facility] Care WewahitchkaStart: 34-91-6659PWsY/Tdap/Td vaccine (1 - Tdap)DTaP/Tdap/Td vaccine (1 - Tdap)[facility] HospitalTIENComyayo on above: Postponed from 02/29/1992 (Patient Refused)Start: 16-47-9607ITI screeningHIV screenCleveland Clinic Avon Hospital KYComment on above:Postponed from 02/29/1988 (Patient Refused)Start: 09-03-2021 End: 32-88-8925Txhtiqo encounter czcniidgv52/09/2021 Office Visit Cardiology Nathan Ardon MD [address] [place] [id number] [facility] CARDIOLOGY [facility] [place] Hospicetart: 89-00-4108RdQ8q (Bld) [Mass fraction]A1C test (Diabetic or Prediabetic)[place], [place]Start: 68-64-6174Feefeemuzq A1c fmnlsdtfmbmD1X test (Diabetic or Prediabetic)[facility] Phone: start: 82-49-8159Wecnx panelLipid screenExira, KYStart: 17-13-0603Wkvtavmqu vaccinationFlu vaccine (#1)[facility] [employer] Phone: start: 03-18-2021 End: 33-01-9602Qkqfgu VisitUniversity Of Iowa Hospitals And ClinicsfinStart: 87-02-0009Lfmjpvyqy B vaccine (1 of 3 - Risk 3-dose series)Hepatitis B vaccine (1 of 3 - Risk 3-dose series)[facility] TIENComment on above:Postponed from 02/29/1992 (Not Indicated)Start: 03-09-2021 End: 83-18-3818Ekqyove encounter btzijwfzj65/14/2021 Office Visit Gastroenterology Leah Martins MD [address] [place] [address] [facility] GastroenterologyStart: 03-04-2021 End: 50-86-7226Ihmvnqa encounter jbmvocelc63/09/2021 Appointment Stress LabMTHZ Stress LabStart: 02-09-2021 End: 87-47-5710Xbcusry encounter /17/2021 Office Visit Primary Care Vivian Lemos, TELEPHONE STATION REPAIRER - RECEPTIONIST DOCTOR'S OFFICE [address] Emelyn [facility]ITAL[facility], [place] [phone] [facility] TiffinStart: 01-28-2021 End: 80-31-5013Vylseg Visit01/28/2021 Office Visit Urology Florida Everett MD [address], [address] [place], [place] [phone] [facility] UROLOGY [place] [facility] [place] Hospicetart: 11-21-2020 Diabetic microalbuminuria testDiabetic microalbuminuria testMerMiria Systems Work Phone: comment on above:Postponed from 09/25/2019 (Not Indicated)Start: 66-39-6848Ocfimfvvey measurementCreatinine monitoringWyandot Memorial Hospital Health- [place], [place]Start: 64-14-7688Nummbizdnt monitoringCreatinine monitoringMerMiria Systems Work Phone: start: 01-09-3154Kegjkdmvt monitoringPotassium monitoringLakehealth Beachwood Medical CenterMiria Systems Work Phone: start: 14-48-8686Akntrhlu retinal examDiabetic retinal examBON SECMARY RUTAN HOSPITALStart: 02-70-8893Twhfhrkw screeningDiabetic retinal examBon Cleveland ClinicStart: 09-11-2020 End: 04-34-1947Wcqhxy Visit09/11/2020 Office Visit Primary Care Might, Vivian Combs, TELEPHONE STATION REPAIRER - RECEPTIONIST DOCTOR'S OFFICE [address] [place], [place] [phone] [facility] Primary Care WewahitchkaStart: 68-77-5277KDhB/Tdap/Td vaccine (1 - Tdap) DTaP/Tdap/Td vaccine (1 - Tdap)[facility] Sep[employer]ensor [facility] Phone: comment on above:Postponed from 02/29/1992 (Patient Refused)Postponed from 02/29/1984 (Patient Refused)Start: 49-43-0931UMU screen HIV screenMerMiria Systems Work Phone: comment on above:Postponed from 02/29/1988 (Patient Refused)Start: 15-00-5200WYE screeningHIV screenLakehealth Beachwood Medical Centercy HealthDEACONESS INCARNATE [facility]ORD [facility], OKComment on above:Postponed from 02/29/1988 (Patient Refused)Start: 12-12-5912Czbjjefxzb monitoringCreatinine monitoringMercy Health- [place], [place]Start: 92-34-6952Khgldyyue monitoringPotassium monitoringMer Health- [place], KYStart: 06-11-2020[object Object]Diabetic foot examC[facility] Clinic [facility] Hospital, KYStart: 30-86-4053Giwhwaiu foot examinationDiabetic foot examC[facility] Clinic [facility] Hospital, KYStart: 41-41-6150Plfqohsdyk monitoringCreatinine [facility], KYStart: 41-84-1057Zfnfn panel Lipid screenCleveland Clinic [facility] Hospital, KYStart: 21-44-7212Ubepz screenLipid screenCleveland Clinic [facility] Hospital, KYStart: 81-69-1271Uzypwieii monitoringPotassium [facility], KYStart: 62-68-5534Lvihdblg cancer screenCervical cancer screenCleveland Clinic [facility] Hospital, KYStart: 44-55-3595Zqrwluqdl for malignant neoplasm of cervixBON SECOURS MEMORIAL HEALTH SYSTEMStart: 99-49-1837Zajseqxgp vaccinationFlu vaccine (#1)[facility], KYStart: 46-11-6873EtD5c (Bld) [Mass fraction]A1C test (Diabetic or Prediabetic)[facility], OKStart: 54-06-1100Airqgfgsxl monitoringCreatinine monitoringC[facility] Clinic [facility] Hospital, KYStart: 64-80-5872Bbuiyrzop monitoringPotassium [facility], KYStart: 03-12-2020 End: 98-15-6920Hteprg VisitMer Primary Care TiffinStart: 86-56-2677Jeevwlfd retinal examDiabetic retinal examC[facility] Clinic [facility] Hospital, KYComment on above:Postponed from 01/02/2019 (Patient Refused)Start: 24-33-3457Psdxaxyhl B Vaccine (1 of 3 - Risk 3-dose series)Hepatitis B Vaccine (1 of 3 - Risk 3-dose series)[facility], OKComment on above:Postponed from 02/29/1992 (Patient Refused)Start: 01-28-2020 End: 78-38-2324Ryalwk VisitTiffin UrologyStart: 65-08-6071T4H test (Diabetic or Prediabetic)A1C test (Diabetic or Prediabetic)[facility], KYStart: 10-15-2019 End: 91-20-1628Otgptl Visit10/15/2019 Office Visit Cardiology Nathan Ardon MD [address] [place] [address] [place] [address] [phone] [facility] CARDIOLOGYStart: 96-09-0945Oarbjhir microalbuminuria testDiabetic microalbuminuria testEx[place], KYStart: 09-10-2019 End: 86-83-6747Oihoym Visit09/10/2019 Office Visit Primary Care Vivian Lemos, TELEPHONE STATION REPAIRER - RECEPTIONIST DOCTOR'S OFFICE [address] [place] [address] [phone] [facility] Primary [facility] ClinicfinStart: 09-04-2019 End: 02-74-4110Wnrcra Visit09/04/2019 Office Visit Otolaryngology Hever Olivera PA [address] [place] [address] [facility] Ear, Nose & Throat SpecialistsStart: 98-02-2717S9B test (Diabetic or Prediabetic)A1C test (Diabetic or Prediabetic)[place], [place] Start: 11-20-9456AHdY/Tdap/Td vaccine (1 - Tdap)DTaP/Tdap/Td vaccine (1 - Tdap) [place], KYComment on above:Postponed from 02/29/1992 (Patient Refused) Postponed from 02/29/1984 (Patient Refused)Start: 16-81-6083NII screenHIV screen [place], KYComment on above:Postponed from 02/29/1988 (Patient Refused) Start: 08-22-2019 End: 34-51-0958Jmhjvlvygts75/27/2019 Appointment [facility] Nuclear MedicineStart: 59-48-1897Xfvii screenLipid screenEx[place], [place] Start: 08-16-2019 End: 17-87-2135Jexkygrugzi26/21/2019 Appointment [facility] Nuclear MedicineStart: 08-03-2019 End: 05-20-2669Awifiricoyr94/08/2019 Appointment [facility] UltrasoundStart: 07-26-2019 End: 00-39-0925Ddtipa Visit07/26/2019 Office Visit OtolaryngologHever Green PA [address] [place] [address] [phone] [facility] Ear, Nose & Throat SpecialistsStart: 06-11-2019 End: 10-28-0591Hebslf Visit06/11/2019 Office Visit Primary Care Vivian Lemos, JOSSE - RECEPTIONIST DOCTOR'S OFFICE [address] [place] [address] [phone] [facility] Primary Care [facility] ClinicfinStart: 97-26-7473J1B test (Diabetic or Prediabetic)A1C test (Diabetic or Prediabetic)[facility]: 34-67-4002Qhhkruqox vaccinationFlu vaccine (#1)[facility]: 05-10-2019[object Object] Diabetic foot examMercy Health West Hospital: 97-16-9317Tyybtmgituvi 0-64 years Vaccine (2 - PCV)Pneumococcal 0-64 years Vaccine (2 - PCV)[facility]: 05-39-6952Pxtqrxolbqqu 0-64 years Vaccine (2 of 2 - PCV) Pneumococcal 0-64 years Vaccine (2 of 2 - PCV)[facility]: 70-00-1585Kqehwoykzufn 50+ years Vaccine (2 of 2 - PCV)Pneumococcal 50+ years Vaccine (2 of 2 - PCV)[facility]: 09-05-8705Lhhvsrssk for malignant neoplasm of colonRiverview Health Instituteart: 55-51-9450Yrtrcfarp for malignant neoplasm of cervixHPV (without or with Pap)[facility]art: 50-93-9619ECoC/Tdap/Td vaccine (1 - Tdap)DTaP/Tdap/Td vaccine (1 - Tdap)[facility] Hospitalart: 03-81-3230Tfpqkxrif B vaccine (1 of 3 - 19+ 3-dose series)Hepatitis B vaccine (1 of 3 - 19+ 3-dose series)[facility] Start: 57-11-9182Lhwlb screening for proteinDiabetic Alb to Cr ratio (uACR) test [facility] Hospitalart: 33-83-3772HNQFJ-19 Vaccine (1)COVID-19 Vaccine (1)[place] Phone: start: 93-41-3910ILI screeningHIV screenPromedica Defiance Regional Hospital Start: 08-71-9363Orftuzghyt MonitoringDepression MonitoringPromedica Defiance Regional HospitalStart: 20-01-2875Mkpywyuur C screeningHepatitis C screenC[facility] Clinic [facility], [place] End: 68-03-2626OZSEW ACID, QUANTAMINO ACID, QUANT Lab Routine Once for 1 Occurrences starting 12/28/2019 until 12/28/2019[place], [place]Comment on above:Once for 1 Occurrences starting 12/28/2019 until 12/28/2019AMINO ACID, QUANTAMINO ACID, QUANT Lab Routine 12/28/2019 2:54 PM [facility], [place] End: 76-27-1310Xhmz-smooth muscle antibodyAnti-smooth muscle antibody Lab Routine Abnormal LFTs 1 Occurrences starting 03/11/2021 until 03/11/2021[facility] [employer] Phone: comment on above:1 Occurrences starting 03/11/2021 until 03/11/2021 End: 91-23-0320Yqqxs Metabolic Panel w/ Reflex to MGBasic Metabolic Panel w/ Reflex to MG Lab Routine Daily for 5 Days starting 06/11/2023 until 06/15/2023, 4 completedUNITED [facility] [employer] [facility]-FAIRHILLGenoSpaceHermann Area District Hospital on above:Daily for 5 Days starting 06/11/2023 until 06/15/2023, 4 completed End: 91-45-3565Pgpvl Metabolic Panel w/ Reflex to MGBasic Metabolic Panel w/ Reflex to MG Lab Routine Daily for 5 Days starting 05/30/2025 until 06/03/2025, 2 completedBon Voice123 Corey HospitalafterBOTHermann Area District Hospital on above:Daily for 5 Days starting 05/30/2025 until 06/03/2025, 2 completedBlood Culture 1Blood Culture 1 Microbiology STAT 06/10/2023 11:30 PM [facility]TB[facility] [employer]Same End: 15-00-3137N-reactive proteinC-Reactive Protein Lab Routine Q48H for 3 Days starting 07/25/2024 until 07/27/2024, 1 completedEn[facility] Voice123 Corey HospitalafterBOTHermann Area District Hospital on above:Q48H for 3 Days starting 07/25/2024 until 07/27/2024, 1 completed End: 14-71-0920Jixlduq stress test EKG study TypeEcho stress test Echocardiography Routine Essential hypertension Chest discomfort Hyperlipidemia, unspecified hyperlipidemia type Tobacco abuse 1 Occurrences starting 03/03/2021 until 03/03/2021[facility] Beachwood Medical CenterNemedia Phone: comment on above:1 Occurrences starting 03/03/2021 until 03/03/2021 End: 74-12-5566CyrtjdxxqRdqfebbdt Lab Routine Once for 1 Occurrences starting 12/28/2019 until 12/28/2019[facility] ExactCostCONYERS, [place]Comment on above:Once for 1 Occurrences starting 12/28/2019 until 12/28/2019CarnitineCarnitine Lab Routine 12/28/2019 2:[address] [facility] SepSensorAL[place], [place] End: 49-27-4991TPU W Auto Differential panel - BloodCBC auto differential Lab Routine Daily for 5 Days starting 06/11/2023 until 06/15/2023, 4 [facility] Semnur PharmaceuticalsHermann Area District Hospital on above:Daily for 5 Days starting 06/11/2023 until 06/15/2023, 4 completed End: 87-03-7139JKK W Auto Differential panel - BloodCBC auto differential Lab Routine Daily for 5 Days starting 05/30/2025 until 06/03/2025, 2 [facility] ConnectloudHermann Area District Hospital on above:Daily for 5 Days starting 05/30/2025 until 06/03/2025, 2 completed End: 72-89-4472Qmtdoptgjb cardiac monitoring, >2 up to 14 daysContinuous cardiac monitoring, >2 up to 14 days Cardiac Services Routine Syncope and collapse Preop cardiovascular exam Dizziness Primary hypertension Mixed hyperlipidemia Tobacco abuse counseling1 Occurrences starting 10/08/2022 until 10/08/2022ON [email or web address] Phone: comment on above:1 Occurrences starting 10/08/2022 until 10/08/2022ontinuous pulse oximetryPulse oximetry, continuous Respiratory Care Routine Every 4hr until discontinued starting 06/11/2023ON Semnur PharmaceuticalsHermann Area District Hospital on above:Every 4hr until discontinued starting 06/11/2023 End: 65-45-6287BOQCE-19COVID-19 Lab Routine Preoperative testing 1 Occurrences starting 09/30/2020 until 09/30/2020[facility] [employer] [place], [place]Comment on above:1 Occurrences starting 09/30/2020 until 4841PYMKX-89GRDEC-53 Lab Routine Preoperative testing 09/30/2020 1:20 PM [facility] [employer] [place], [place] End: 45-19-6062XMOFP-19Mer[employer] Work Phone: comqagd on above:Once for 1 Occurrences starting 11/26/2021 until 11/26/2021 End: 55-33-1855WEOVI-19BON [employer] Work Phone: comapho on above:Once for 1 Occurrences starting 04/09/2022 until 04/09/2022 End: 35-54-9718EXAPQ-19BON [employer] Work Phone: comsokz on above:Once for 1 Occurrences starting 09/03/2022 until 09/03/2022 End: 33-27-8497WELTI-19BON [employer] Work Phone: comment on above:Once for 1 Occurrences starting 09/10/2022 until 09/10/2022 End: 88-48-1585Lisga-19 AmbulatoryCovid-19 Ambulatory Lab Routine Once for 1 Occurrences starting 07/08/2020 until 07/08/2020[facility] SepSensorDEACONESS INCARNATE [facility] SYSTEM, [place]Comment on above:Once for 1 Occurrences starting 07/08/2020 until 07/08/2020Covid-19 AmbulatoryCovid-19 Ambulatory Lab Routine 07/08/2020 1:06 PM [facility] [place], [place] End: 06-67-5014SM Ankle - left WO contrastBon Secours Mercy HealthComment on above:Once for 1 Occurrences starting 07/26/2024 until 07/26/2024 End: 60-50-3762QG Foot - left WO contrastBon Secours Mercy HealthComment on above:Once for 1 Occurrences starting 07/26/2024 until 07/26/2024 End: 45-14-7980QN Foot - left WO contrastBon Secours Mercy HealthComment on above:1 Occurrences starting 08/31/2024 until 08/31/2024 End: 13-01-3400UB Sinuses W contrast IVCT SINUS W CONTRAST Imaging Routine Recurrent pansinusitis 1 Occurrences starting 07/02/2024 until 07/02/2024on ConnectloudComment on above:1 Occurrences starting 07/02/2024 until 07/02/2024 End: 26-19-3888VC Sinuses WO contrastBon ConnectloudComment on above:1 Occurrences starting 07/17/2025 until 07/17/2025 End: 22-44-4663QTK Abdominal vessels WO and W contrast IVBon ConnectloudComment on above:1 Occurrences starting 06/14/2025 until 06/14/2025 Culture, Blood 2Culture, Blood 2 Microbiology STAT 06/10/2023 11:40 PM EDTBON [employer] End: 14-73-3263Yqwjldr, UrineCulture, Urine Microbiology Routine Renal stones Renal colic 1 Occurrences starting 01/28/2021 until 01/28/2021[facility] CenterMiria Systems Work Phone: comment on above:1 Occurrences starting 01/28/2021 until 1Culture, UrineCulture, Urine Microbiology Routine Renal stones Renal colic 01/28/2021 11:00 AM [facility]Ther[facility] Work Phone: End: 69-28-7075QLR Skeletal system.axial Views for bone densityBon ConnectloudComment on above:1 Occurrences starting 05/02/2025 until 05/02/2025EKG 12 LeadEKG 12 Lead ECG Routine 08/06/2022 2:34 PM ESTBON [employer] Work Phone: eKG 12 LeadEKG 12 Lead ECG STAT 08/06/2022 5:11 PM EST [employer] [facility] [email or web address] Phone: End: 22-41-3483Qvpbwh 8 AssayFactor 8 Assay Lab Routine Once for 1 Occurrences starting 12/28/2019 until 12/28/2019MerDoctors Hospital- [place], [place]Comment on above:Once for 1 Occurrences starting 12/28/2019 until 12/28/2019Factor 8 AssayFactor 8 Assay Lab Routine 12/28/2019 2:54 PM [facility], TIEN End: 59-31-2784ZggvioldazVjefsicloz Lab Routine Once for 1 Occurrences starting 12/28/2019 until 12/28/2019[facility] TIENComment on above:Once for 1 Occurrences starting 12/28/2019 until 12/28/2019FibrinogenFibrinogen Lab Routine 12/28/2019 2:54 PM [facility], [place] End: 55-04-9713Njgyrxe [Mass/volume] in Serum or PlasmaPOCT Glucose Point of Care Testing STAT One Time for 1 Occurrences starting 12/08/2022 until 023[facility] Tang Song [facility] HOSPITALComment on above:One Time for 1 Occurrences starting 12/08/2022 until 3Glucose [Mass/volume] in Serum or PlasmaPOCT Glucose Point of Care Testing STAT As Needed until discontinued starting 06/11/2023ON [facility] MEDICAL CENTEREggrock PartnersComment on above:As Needed until discontinued starting 3Glucose [Mass/volume] in Serum or PlasmaBON [facility] [employer] Comment on above:As Needed until discontinued starting 34X Daily (AC & HS) until discontinued starting 06/11/2023 End: 77-69-4996Uzsiico [Mass/volume] in Serum or PlasmaBon [facility] (PRN) Work Phone: Comment on above:One Time for 1 Occurrences starting 07/23/2024 until 44X Daily (AC & HS) until discontinued starting 07/24/2024s Needed until discontinued starting 07/23/2024Glucose [Mass/volume] in Serum or PlasmaPOCT Glucose Point of Care Testing STAT As Needed until discontinued starting 09/14/2024on 2CODE [facility]enemours [facility] (PRN) Work Phone: Comment on above:As Needed until discontinued starting 09/14/2024Glucose [Mass/volume] in Serum or PlasmaPOCT Glucose Point of Care Testing Routine 4X Daily (AC & HS) until discontinued starting 05/30/2025on ConnectloudComment on above:4X Daily (AC & HS) until discontinued starting 05/30/2025 End: 44-80-1432Qhyvhqz [Mass/volume] in Serum or PlasmaPOCT Glucose Point of Care Testing STAT One Time for 1 Occurrences starting 07/23/[address] [facility] [employer] Work Phone: Comment on above:One Time for 1 Occurrences starting 07/23/2025 until 07/23/2025 End: 64-73-7604IeE6x (Bld) [Mass fraction]Hemoglobin A1C Lab Routine Once for 1 Occurrences starting 08/13/2020 until 08/13/2020[facility] Medical CenterDixon Technologies, [place]Comment on above:Once for 1 Occurrences starting 08/13/2020 until 08/13/2020HbA1c (Bld) [Mass fraction]Hemoglobin A1C Lab Routine 08/13/2020 11:47 AM [facility] HospitalInt[facility] InS[facility] [place], [place] End: 63-44-4241Wrxytnltnu A1c/Hemoglobin.total in [employer] Work Phone: comment on above:1 Occurrences starting 09/21/2022 until 09/21/2022 End: 27-89-8778Tijumyndeq A1c/Hemoglobin.total in [employer] Comment on above:Once for 1 Occurrences starting 06/08/2024 until 06/08/2024 End: 47-01-3312Vkyvwfsydb A1c/Hemoglobin.total in BloodHemoglobin A1C Lab Routine One Time for 1 Occurrences starting 07/14/2024 until 07/14/2024on [employer] Work Phone: comment on above:One Time for 1 Occurrences starting 07/14/2024 until 07/14/2024 End: 44-83-3897Drgzshpavo A1c/Hemoglobin.total in [employer] Comment on above:Once for 1 Occurrences starting 10/11/2024 until 10/11/2024 End: 39-03-5023Kzcpnpyzf A Antibody, TotalHepatitis A Antibody, Total Lab Routine Abnormal LFTs 1 Occurrences starting 03/11/2021 until 03/11/2021[facility] Phone: comment on above:1 Occurrences starting 03/11/2021 until 03/11/2021Hepatitis A Antibody, TotalHepatitis A Antibody, Total Lab Routine Abnormal LFTs 03/11/2021 12:57 PM [facility] Phone: End: 94-62-8030Mlzlwtqgv B surface antibodyHepatitis B surface antibody Lab Routine Abnormal LFTs 1 Occurrences starting 03/11/2021 until 03/11/2021[facility] CenterNemedia Phone: comment on above:1 Occurrences starting 03/11/2021 until 03/11/2021Home BIPAP or CPAPHome BIPAP or CPAP Respiratory Care Routine QHS until discontinued starting 06/11/2023ON [employer] PharmaceuticalsComment on above:QHS until discontinued starting 06/11/2023 End: 85-03-8991Mqan sleep studyCottage Grove sleep study Sleep Center Routine Tired Fatigue, unspecified type LAYNE (obstructive sleep apnea)1 Occurrences starting 11/23/2022 until 11/23/2022ON [email or web address] Phone: comment on above:1 Occurrences starting 11/23/2022 until 11/23/2022 End: 22-09-3209Grzohkxnlabyznb, QuantitativeImmunoglobulins, Quantitative Lab Routine Abnormal LFTs 1 Occurrences starting 03/11/2021 until 03/11/2021[facility] CenterNemedia Phone: comment on above:1 Occurrences starting 03/11/2021 until 03/11/2021Immunoglobulins, QuantitativeImmunoglobulins, Quantitative Lab Routine Abnormal LFTs 03/11/2021 12:57 PM [facility] Phone: End: 94-70-5936FEYXZUXQ PACU OXYGEN THERAPY PROTOCOLInitiate PACU Oxygen Therapy Protocol Respiratory Care Routine Continuous until discontinued starting 5Bon [employer] Phone: comment on above:Continuous until discontinued starting 07/23/2025 End: 50-90-9842PRVPBCUTMXZUD TESTINGMISCELLANEOUS TESTING Lab Routine Once for 1 Occurrences starting 12/28/2019 until 12/28/2019[facility], OKComment on above:Once for 1 Occurrences starting 12/28/2019 until 12/28/2019MISCELLANEOUS TESTINGMISCELLANEOUS TESTING Lab Routine 12/28/2019 4:12 PM [employer], [place] End: 94-01-5276AVJCWAMQIWQKR ANTIBODIES, M2, IGGMITOCHONDRIAL ANTIBODIES, M2, IGG Lab Routine Once for 1 Occurrences starting 03/11/2021 until 03/11/2021[facility] CenterNemedia Phone: comment on above:Once for 1 Occurrences starting 03/11/2021 until 03/11/2021MITOCHONDRIAL ANTIBODIES, M2, IGGMITOCHONDRIAL ANTIBODIES, M2, IGG Lab Routine 03/11/2021 12:57 PM [facility] Phone: End: 97-47-5812AOPFFVBVJWRVQ ANTIBODY W/REFLEX TITERMITOCHONDRIAL ANTIBODY W/REFLEX TITER Lab Routine Abnormal LFTs 1 Occurrences starting 03/11/2021 until 03/11/2021[facility] CenterNemedia Phone: comment on above:1 Occurrences starting 03/11/2021 until 03/11/2021 End: 35-59-5394HB Lumbar spine WO contrastBon Secours Physician Referral Network (PRN)Comment on above:1 Occurrences starting 04/12/2025 until 04/12/2025 End: 46-49-8202SH Shoulder - left WO contrastBon Secours [employer] HealthComment on above:1 Occurrences starting 07/29/2025 until 07/29/2025 End: 52-53-6874RL Shoulder - right WO contrastBon Secours Physician Referral Network (PRN)Comment on above:1 Occurrences starting 07/29/2025 until 07/29/2025Nasal Cannula Oxygen Nasal Cannula Oxygen Respiratory Care Routine Daily until discontinued starting 06/11/2023ON SECEggrock PartnersComment on above:Daily until discontinued starting 06/11/2023 End: 93-14-3892DD GASTRIC EMPTYINGNM GASTRIC EMPTYING Imaging Routine Generalized abdominal pain 1 Occurrences starting 08/16/2019 until 08/16/2019 [employer], [place]Comment on above:1 Occurrences starting 08/16/2019 until 08/16/2019 End: 83-35-0357Hwzahsu Ab [Titer] in Serum by ImmunofluorescenceANA Lab Routine Abnormal LFTs 1 Occurrences starting 03/11/2021 until 03/11/2021[facility] CenterNemedia Phone: comment on above:1 Occurrences starting 03/11/2021 until 03/11/2021Nuclear Ab [Titer] in Serum by ImmunofluorescenceANA Lab Routine Abnormal LFTs 03/11/2021 12:57 PM [employer] Phone: Oxygen therapy [Minimum Data Set]Initiate Oxygen Therapy Protocol Respiratory Care Routine As Needed until discontinued starting 06/11/2023 Semnur PharmaceuticalsHermann Area District Hospital on above:As Needed until discontinued starting 06/11/2023Oxygen therapy [Minimum Data Set]Initiate Oxygen Therapy Protocol Respiratory Care Routine As Needed until discontinued starting 06/27 ConnectloudHermann Area District Hospital on above:As Needed until discontinued starting 07/23/2024Oxygen therapy [Minimum Data Set]Initiate Oxygen Therapy Protocol Respiratory Care Routine As Needed until discontinued starting 08/27 [facility] above:As Needed until discontinued starting 09/14/2024Oxygen therapy [Minimum Data Set]Initiate Oxygen Therapy Protocol Respiratory Care Routine As Needed until discontinued starting 08/27 [facility] on above:As Needed until discontinued starting 09/14/2024Oxygen therapy [Minimum Data Set]Initiate Oxygen Therapy Protocol Respiratory Care Routine Daily until discontinued starting 05/30/2025 [facility] on above:Daily until discontinued starting 05/30/2025Oxygen therapy [Minimum Data Set]Initiate Oxygen Therapy Protocol Respiratory Care Routine As Needed until discontinued starting 07/23/2025 [facility] above:As Needed until discontinued starting 07/23/2025Pathology studySurgical Pathology Lab Routine Charcot ankle, left Diabetes (HCC) Release Upon Ordering for 1 Occurrences starting 09/14/2024on [facility] on above:Release Upon Ordering for 1 Occurrences starting 09/14/2024ositive Expiratory Pressure TherapyBON [employer] [facility] on above:4X Daily until discontinued starting 06/11/2023s Needed until discontinued starting 06/11/2023 End: 54-00-7311Npsye study with PAP titrationSleep study with PAP titration Sleep Center Routine LAYNE (obstructive sleep apnea) 1 Occurrences starting 01/19/2023 until 01/19/2023ON [email or web address] Phone: comment on above:1 Occurrences starting 01/19/2023 until 01/19/2023 End: 99-22-5676Aeplty Muscle Antibody QuantSmooth Muscle Antibody Quant Lab Routine Once for 1 Occurrences starting 03/11/2021 until 03/11/2021[facility]: comment on above:Once for 1 Occurrences starting 03/11/2021 until 03/11/2021mooth Muscle Antibody QuantSmooth Muscle Antibody Quant Lab Routine 03/11/2021 12:[facility] Phone: End: 06-38-2290Yognhf Muscle Antibody QuantBON [email or web address] Phone: Comment on above:1 Occurrences starting 07/19/2022 until 07/19/2022 End: 49-22-4439NHORAJQO REJECTIONEncompass Health [facility] ConnectloudComment on above:Once for 1 Occurrences starting 05/29/2025 until 05/29/2025Surgical PathologySurgical Pathology Lab Routine Screening for colon cancer Release Upon Ordering for 1 Occurrences starting 12/08/2022 [email or web address] Phone: Comment on above:Release Upon Ordering for 1 Occurrences starting 12/08/2022Vibratory Airway ClearanceUNITED STATES AIR FORCE [facility] [employer] PharmaceuticalsComment on above:As Needed until discontinued starting 06/11/2023TID until discontinued starting 06/11/2023 Immunizations Immunization DateImmunizationNotesCare BsjwljvlXvusxrgu30-10-2640qaexrz vaccine recombinantSjoaquin Segundo MDSOU[facility] EcoEridaniaTFMRKR81-51-5240lfkyxx recombinant adjuvanted vaccine (SHINGRIX) 50 MCG/0.5ML SUSR Laura Segundo MDBON SECOURS MARY IMMACULATE HOSPITALGenoSpaceGCODXV43-57-5451mankfwegw, injectable, quadrivalent, contains preservative Mth [facility] CenterTafsvd78-39-8773zyrhesaxw, injectable, quadrivalent, preservative freeBrett [facility] SouthCtynje63-66-5866vgbthnkqo, injectable, quadrivalent, preservative freeMcKitrick Hospital, OI11-05-3086uxpeasufbwht polysaccharide vaccine, 23 valentBreMcKitrick HospitalXsqfmt48-03-3684wxqajenfs virus vaccine, unspecified formulationSumma Health Wadsworth - Rittman Medical CenterQabkhf01-07-0631sgwvyivlr virus vaccine, unspecified formulationSumma Health Wadsworth - Rittman Medical Center12-04-2009novel sdhfrszxr-Z8E9-93, preservative-free, injectableMcKitrick Hospital, [place] Payers DatePayer CategoryPayerPolicy [id number]-zkd [id number] [facility] PPO [id number] 09/26/2021-Present [phone] [address] [place], [place] [id number] 1.2.840.937559.1.13.239.2.7.3.102161.57576-55-3840Baopfmy Health [id number] 1.2.840.130584.1.13.239.2.7.3.615383. UnknownMEDICAL MUTUAL MEDICAL MUTUAL [address] xxxxxxxxxxxx 2017-Present [phone] [address] [place] [address]glfbdkmmhrkk 1.2.840.632908.1.13.239.2.7.3.381[id number] 2.16.840.1.395558.3.579.2.29505-00-9379Huzzwal8015963 2.16.840.1.553835.3.579.2.33177-09-7777Unbudwj8202571 2.16.840.1.895890.3.579.2.89348-08-1469Cwhwxjw2194057 2.16.840.1.261571.3.579.2.97960-92-4580Gdelhmd6191979 2.16.840.1.994948.3.579.2.45367-21-4247Nzirgae0050071 2.16.840.1.207920.3.579.2.54524-01-7088Ucnzoyb9394372 2.16.840.1.701907.3.579.2.96704-20-3077Oivesvl4446542 2.840.1.936310.3.579.2.46425-73-4782Nloygfl4903498 2.840.1.254494.3.579.2.62150-70-2901Xxxxxrq6861673 2.0.1.102718.3.579.2.70044-89-0044Dvfuuek6737145 2.840.1.966175.3.579.2.50250-12-6499Yeqzspw6747413 2.0.1.017382.3.579.2.10406-43-5464Pugzdfz5939705 2.840.1.767616.3.579.2.52479-47-2657Moljuau2298585 2.840.1.482504.3.579.2.21530-46-0166Qxxzigo4955555 2.840.1.411101.3.579.2.32223-34-3105Btcmefy5885402 2.840.1.419265.3.579.2.51521-36-9183Ohotfye1252188 2.16840.1.472751.3.579.2.45953-65-0595Xqcjbij35535849 2.16840.1.732310.3.579.2.46511-64-0409Gnrqsjj40007287 2.16.840.1.383214.3.579.2.30051-17-5609Gctfioi74436122 2..840.1.794796.3.579.2.37312-22-4547Wmtdika35621032 2.840.1.888593.3.579.2.89832-31-8663Xfinqde514509510 2.840.1.981351.3.579.2.32465-45-5931Fqwkvur238948114 2.0.1.914895.3.579.2.02735-57-8336Khxbxzf208590813 2.0.1.763791.3.579.2.28197-04-8181Ttajunu824468079 2.0.1.684254.3.579.2.26253-27-4473Qbliavv476880266 2.0.1.067431.3.579.2.88280-11-5576Selrefb532784047 2..1.351760.3.579.2.00131-05-4292Afodlxc86869031 2.840.1.299805.3.579.2.25826-50-3382Vfxqmqv26232596 2.0.1.237226.3.579.2.86268-70-9439Wiffxvn30928340 2.840.1.473356.3.579.2.25144-72-3251Skcjxza73035404 2.840.1.942949.3.579.2.96561-94-3560Ruhckxg85962646 2.840.1.929745.3.579.2.34091-13-3857Aeezjej02991393 2.16.840.1.047782.3.579.2.75088-60-0060Gjfawct82385353 2.840.1.037081.3.579.2.24505-43-4369Ymevsyw85394625 2.840.1.195738.3.579.2.37854-11-5315Moayblm78659089 2.840.1.544097.3.579.2.19279-77-8768Wgslmbl43325368 2.840.1.208459.3.579.2.64504-64-1257Vlvodji44636519 2.0.1.977258.3.579.2.92121-15-5995Fxtjxxm23745023 2.0.1.717317.3.579.2.99185-34-0235Esszytz78834023 2..1.781189.3.579.2.08423-95-5512Qtwylbd25213710 2.0.1.176355.3.579.2.42970-69-2321Xhwghru41409742 2.0.1.859916.3.579.2.38732-76-6613Wslrgzl74581998 2.0.1.346923.3.579.2.89470-29-7992Awbamqp22487978 2.0.1.454236.3.579.2.84581-94-4034Wegvwln53444675 2.0.1.885149.3.579.2.77221-52-0548Zewoxow55787328 2.840.1.355258.3.579.2.55846-91-2286Ylvnjin37528430 2.840.1.038133.3.579.2.81555-52-7679Xyapucd30090075 2.16.840.1.401471.3.579.2.46095-43-1908Qeesqsr50346013 2..840.1.728230.3.579.2.86711-36-2304Gudogne58665932 2..840.1.522032.3.579.2.51054-38-6299Sputiio94099778 2.840.1.801974.3.579.2.14727-40-8441Bglmder70352584 2.840.1.526274.3.579.2.16780-03-3759Kwxcloz95122155 2.0.1.678442.3.579.2.47487-79-6448Xzrgmym25569768 2..1.389057.3.579.2.80089-88-5361Ulpqbmh74166803 2.0.1.331566.3.579.2.51579-02-5554Emqzjpo08123296 2.0.1.249682.3.579.2.39113-80-6093Gkuiezc34543460 2.840.1.261310.3.579.2.58462-43-0028Wiemkoz04033633 2.0.1.042597.3.579.2.12568-11-3512Shxmvac73457565 2.840.1.888612.3.579.2.41622-21-9311Hucohra47952420 2.840.1.858670.3.579.2.76043-12-4535Jpebahd33230700 2.840.1.566623.3.579.2.73111-15-4573Dqzsdtl30122160 2.840.1.126323.3.579.2.39672-77-6364Lxeqfay83387139 2.840.1.212092.3.579.2.60953-46-0139Isbsmuy63954106 2.0.1.299320.3.579.2.05641-10-9229Uyxvnww03809912 2.0.1.447511.3.579.2.64161-20-4772Cqjjksr29726019 2.0.1.418400.3.579.2.31547-73-1795Kgrjfxs26335487 2.0.1.615902.3.579.2.62327-71-1026Lgangvz50535017 2..1.163684.3.579.2.41364-58-7451Skdgaqa95471162 2..1.360763.3.579.2.91709-31-6317Iydgrvt40126338 2..1.157130.3.579.2.82172-45-3087Ggrykgf30540932 2.0.1.810426.3.579.2.77660-59-4778Fcitxps16019927 2..1.065228.3.579.2.03169-67-3164Ilxukjk12289031 2..1.832204.3.579.2.72898-00-8886Uhjfilj21853990 2.0.1.723192.3.579.2.43156-43-6114Vsneekm07133879 2..1.891270.3.579.2.49032-11-4098Naqibye71514033 2.0.1.745885.3.579.2.42714-88-5510Rxtlhyq55134238 2.0.1.987373.3.579.2.36556-56-7940Pwhiynq22240187 2.840.1.697284.3.579.2.02864-27-6148Ewyrskv96357208 2.840.1.011513.3.579.2.07547-93-0546Qhbrnow13638050 2.840.1.954802.3.579.2.75611-61-9911Xnoysoi19971115 2.840.1.187425.3.579.2.70043-89-6760Jhkuwmg35423363 2.840.1.219197.3.579.2.91237-68-7629Wglwifz67194826 2.0.1.016549.3.579.2.92167-64-0479Sclorot97491745 2..1.139228.3.579.2.13337-72-3069Agzcxxh08693555 2.0.1.270016.3.579.2.61009-32-7357Pvbhyjc89565529 2.0.1.316315.3.579.2.79074-98-9182Xzveljq41090675 2.0.1.962859.3.579.2.89652-84-3629Yslszvw29019931 2.0.1.829555.3.579.2.16357-17-9042Fbgnpvr68883103 2.0.1.456996.3.579.2.55713-24-5146Jlmfsaw11702482 2.0.1.392071.3.579.2.66328-58-7520Lyanvjn46217610 2.840.1.657946.3.579.2.27247-71-6434Saadikf71443351 2.840.1.258279.3.579.2.16816-54-6565Lidngzo17140784 2.16.840.1.292223.3.579.2.53182-45-0638Qigzoxo094934422 2.16.840.1.451605.3.579.2.47698-08-6253Dzikruc175096570 2.16.840.1.358813.3.579.2.83204-85-7411Bmewnrp794737659 2.840.1.132619.3.579.2.94035-12-7027Hzvfgsj377007941 2.840.1.548531.3.579.2.21382-23-4383Ojnoufy249134987 2.840.1.948893.3.579.2.91858-12-2289Iarcsle846502437 2.840.1.111278.3.579.2.12544-98-6633Pjxazmh253474531 2.840.1.613025.3.579.2.43263-67-9670Hwerlva691490899 2.840.1.541812.3.579.2.46814-45-8067Caawqqv574715111 2.840.1.952281.3.579.2.29563-31-1343Zrpgjcz437926954 2.840.1.073608.3.579.2.45693-93-4078Hmkvuyh520002709341 1..840.554782.1.13.239.2.7.3.429910.104Smzenbv80306440 2.16840.1.886896.3.579.2.502Uvyiaxy10548758 2.16840.1.824878.3.579.2.531 Srxjlxw16419283 2.16840.1.287252.3.579.2.457Kderlrf90250012 2.840.1.484237.3.579.2.531UnknownRegular Vijgobkbp4283060 n9868q1c-lbf4-6212-y669-3174220095sq Social History DateTypeDetailFacilityStart: 07-13-2019 End: 27-11-7091Xjpxste smoking status NHISCurrent every day smokerPromedica Defiance [facility] History of tobacco useCigarette SmokerMercy Health West Hospital: 07-13-2019 End: 66-04-6605Fstlgqvieb smoked current (pack per day) - ReportedBON [employer] [facility]FAIRHILLBrickell [employer] [facility] Facilityart: 07-13-2019 End: 25-61-5309Zndncpy intakeNoNEW ENGLAND REHABILITATION HOSPITAL AT DANVERSPVC Recycling [facility]-FAIRHILLBrickell [employer] [facility] Nursing Facilityart: [id number] Assigned At BirthNot on fileMercy Health West Hospital: 07-26-2019 End: 78-63-1856Tuvowut intakeCurrent non-drinker of alcohol (finding)[facility]: 06-24-2020 End: 10-53-2331Hrscxzp use and exposureNever usedMercy Health West Hospital: 07-27-2022 End: 34-79-2933Byscnnsk to SARS-CoV-2 (event)Not [facility]: 77-94-6902Ydveubd SDOH Uxcaivmho2Rkmtp Health Work Phone: start: 33-49-3110Bcmtcfd SDOH Food Rfmul9Uudzb Health Work Phone: start: 77-79-7585Dvtcoqs smoking status NHISSmoker (finding)[facility] Clinictart: 63-91-4236Dvr Assigned At [facility] CampusHow often to you have a drink containing alcohol?NeverBON [employer] PharmaceuticalsHow many standard drinks containing alcohol do you have on a typical day?Patient does not drinkBON [employer] (I/We) worried whether (my/our) food would run out before (I/we) got money to buy more.DK or RefusedBON [employer]aceuticalsHas the [employer] gas, oil, or water [employer] threatened to shut off services in your home in past 12MoNoBon Connectloud(I/We) worried whether (my/our) food would run out before (I/we) got money to buy more.Never trueBon [facility] HealthA[facility] City HospitalStart: 11-05-2012 SexFemale (finding)Keagan [email or web address] City HospitalStart: 52-77-4723Suycxt identity Identifies as female gender (finding)[facility] [email or web address] City HospitalStart: 05-29-2025 End: 13-34-4962Pdrhbolpj beverage intakeLifetime non-drinker (finding)[facility] Medical Equipment Procedure CodeEquipment CodeEquipment Original TextEquipment IdentifierDates1 each by Does not apply route 5 times [id number]: 86-31-9616Hzb Fix Fidelia Pt 2 End x9 In Smooth Ss Strl Monica - [id number]_urg Start: 07-23-2024K Wire Fix L6in Dia1.6mm St S Stl 3 Side Dbl Trcr Both End - [id number](10)NZ5H5, 3745341_imp FDAStart: 07-23-2024K Wire Fix L6in Dia1.6mm St S Stl 3 Side Dbl Trcr Both End - [id number](10)NZ5H4, 3745348_imp FDAStart: 32-50-1406Psg Fix Fidelia Pt 1 End 32x9 In Thrd Ss Ns Monica - [id number]_impStart: 82-96-4326Djzxl Bone Sub 5cc Pure Allosync - [id number]_impStart: 04-38-3831Plqhpds on above:Description: MGGR9554Xczuk Bone Sub 2.5cc Allosync Pure - [id number]_tceNiyof: 77-54-8809Cuxfjbq on above: Description: RAHC8626Mwwdog Orth S Stl Hi Compr G-Beam Fus Beaming Sys - [id number]: 49-51-8141Derqa Bne Fusion Lg 7.4x70 Mm Ss Strl G- Beam - [id number]_hgjWczvy: 39-63-4904Ayfzq Bne Fusion Sm 5.4x80 Mm Ss Strl G-Beam - [id number]: 16-26-6485Bwitu Bne Fusion Sm 5.4x120 Mm Ss Strl G-Beam - [id number]: 63-67-7045Gsxiq Bne Fusion Sm 5.4x120 Mm Ss Strl G-Beam - [id number]_ytqHyvbd: 09-14-2024 Functional Status DateAssessmentResultFacilityR[facility]ide [facility] 12-04-2020 to 08-02-2025 Note Date & OwmgRqlgEdwpqccj53-94-3229 Hospital Discharge instructions* Discharge Instructions* Vanna Laws RN - 08/02/2025 3:04 PM EST Verbally reviewed discharge instructions for care and follow up. Previous print out of these instructions were given with prior treatment.Patient verbalized understanding of these instructions. Today's copy offered and declined. documented in this encounterRiverside [facility]11-07-2025 History of Present illness Narrative* Vanna Laws RN - 08/02/2025 2:30 PM EST Allergy injection flow sheet Identification of own vial of serum Delayed reaction URI with or without wheezing Time of injection Discharge time Yes No No 6058 2849 Injection Schedule Concentration Dose Location Vial Expiration Date Reviewed Red A 1.0ml Left arm Yes Red B 1.0ml Right arm Yes Injection given by: GABRIEL CARLOS Injection site checked upon discharge by: GABRIEL CARLOS Comments: no local Reminder: document all injections in the allergy binder. documented in this encounterRiverside [facility]10-30-2025 Hospital Discharge instructions* Discharge Instructions* Shelley Sunshine RN - 07/25/2025 2:25 PM EDT Verbally reviewed discharge instructions for care and follow up. Previous print out of these instructions were given with prior treatment.Patient verbalized understanding of these instructions. Today's copy offered and declined. documented in this encounterRiverside [facility]10-30-2025 History of Present illness Narrative* Shelley Sunshine RN - 07/25/2025 2:00 PM EDT Allergy injection flow sheet Identification of own vial of serum Delayed reaction URI with or without wheezing Time of injection Discharge time Yes No No 1409 1427 Injection Schedule Concentration Dose Location Vial Expiration Date Reviewed Red#A 1.0ml left yes Red#B 1.0ml right Injection given by: Radha CARLOS Injection site checked upon discharge by: Radha CARLOS Comments: no local Reminder: document all injections in the allergy binder. documented in this encounterRiverside [facility]10-28-2025 History of Present illness Narrative* Sarah Espino [...] to the hospital. documented in this encounterBon [facility] Discharge instructions* Discharge Instructions* Sarah Espino [...] flush the urinary tract.) Call Dr. Everett ([phone]) if you develop: Fever over 100 degrees [...] need an abdominal x-ray afew days before. ([phone]). documented in this encounterRiverside [facility]10-22-2025 Hospital Discharge instructions* Discharge Instructions* Shelley Sunshine RN - 07/17/2025 1:43 PM EDT Verbally reviewed discharge instructions for care and follow up. Previous print out of these instructions were given with prior treatment.Patient verbalized understanding of these instructions. Today's copy offered and declined. documented in this encounterRiverside [facility]10-22-2025 History of Present illness Narrative* Shelley Sunshine RN - 07/17/2025 1:15 PM EDT Allergy injection flow sheet Identification of own vial of serum Delayed reaction URI with or without wheezing Time of injection Discharge time Yes No No 5292 5676 Injection Schedule Concentration Dose Location Vial Expiration Date Reviewed Red#A 1.0ml Left yes Red#B 1.0ml right Injection given by: Radha CARLOS Injection site checked upon discharge by: Radha CARLOS Comments: no local Reminder: document all injections in the allergy binder. documented in this encounterRiverside [facility]10-16-2025 History of Present illness Narrative* Vanna Laws RN - 07/11/2025 2:05 PM EDT Allergy injection flow sheet Identification of own vial of serum Delayed reaction URI with or without wheezing Time of injection Discharge time Yes No No 1405 4079 Injection Schedule Concentration Dose Location Vial Expiration Date Reviewed Red A 1.0ml Left arm yes Red B 1.0ml Right arm yes Injection given by: GABRIEL CARLOS Injection site checked upon discharge by: GABRIEL CARLOS Comments: no local Reminder: document all injections in the allergy binder. documented in this encounterRiverside [facility]09-24-2025 Hospital Discharge instructions* Discharge Instructions* Kelly Boston RN - 06/19/2025 2:01 PM EDT Verbally reviewed discharge instructions for care and follow up. Previous print out of these instructions were given with prior treatment.Patient verbalized understanding of these instructions. Today's copy offered and declined. documented in this encounterRiverside [facility]09-24-2025 History of Present illness Narrative* Kelly Boston RN - 06/19/2025 1:30 PM EDT Allergy injection flow sheet Identification of own vial of serum Delayed reaction URI with or without wheezing Time of injection Discharge time Yes No No 5835 6034 Injection Schedule Concentration Dose Location Vial Expiration Date Reviewed Gold Vial A 0.5 ml Left arm yes Gold Vial B 0.5 ml Right arm yes Injection given by: Mark Boston RN Injection site checked upon discharge by: Mark Boston RN Comments: no local Reminder: document all injections in the allergy binder. documented in this encounterRiverside [facility]09-17-2025 Hospital Discharge instructions* Discharge Instructions* Vanna Laws RN - 06/12/2025 1:47 PM EDT Verbally reviewed discharge instructions for care and follow up. Previous print out of these instructions were given with prior treatment.Patient verbalized understanding of these instructions. Today's copy offered and declined. documented in this encounterRiverside [facility]09-17-2025 History of Present illness Narrative* Vanna Laws RN - 06/12/2025 1:45 PM EDT Allergy injection flow sheet Identification of own vial of serum Delayed reaction URI with or without wheezing Time of injection Discharge time Yes No No 6054 4709 Injection Schedule Concentration Dose Location Vial Expiration Date Reviewed Gold A 0.4ml Left arm yes Gold B 0.4ml Right arm yes Injection given by: GABRIEL CARLOS Injection site checked upon discharge by: GABRIEL CARLOS Comments: no local Reminder: document all injections in the allergy binder. documented in this encounterRiverside [facility]09-05-2025 History of Present illness Narrative* Collette Piña [...] Value Date/Time PHART 7.293 07/02/2013 04:20 PM ZZK9PPA 36.8 07/02/2013 04:20 PM PO2ART 70.6 07/02/2013 04:20 PM I3WZUVPX 92.6 07/02/2013 04:20 PM KED4WSJ 17.4 07/02/2013 04:20 PM PBEA NOT REPORTED [...] Progress Note PATIENT: VIRGIL WARNER CSN #: [id number] : 1975 ADMIT DATE: 05/29/2025 10:44 PM DISCH DATE: RESPONDING PROVIDER #: SHELLEY HUYNH TELEPHONE STATION REPAIRER - [facility] QUERY TEXT: Orthostatic hypotension is documented [...] Patient awake and resting in bed upon sql report writer entering the room. Patient is alert and oriented x 4. Vitals and assessment completed, see flowsheets. Patient states that she is hoping to get dischargedtoday . Whiteboard updated. Patient denies any further needs at this time. Call light within reach.Care ongoing. * Sahara Coleman RPH - 05/31/2025 6:52 AM EDT Images from the original note were not included. [facility] Department of Pharmacy Pharmacy Renal Adjustment [...] muscle mass loss Fluid Accumulation: Mild Generalized Qc Scientist Strength: Not Performed Nutrition Assessment: Limited adherence [...] Measures: Height: 167.6 cm (5' 6 ) [place] Body Weight (IBW): 130 lbs (59 kg) [...] Used for Energy Requirements: Current Energy (kcal/day): 2411-9692 (15-18) Weight Used for Protein Requirements: [place] Protein (g/day): 65-77 (1.1-1.3) Method Used for [...] diabetes education [address], [place] Contact: [phone] * Bisi Mercado RN - 05/30/2025 6:55 PM EDT Financial Dealers at bedside to complete evening assessment. Upon entry to room, pt resting in bed, respirations even and non-labored while on room air. Vitals obtained and assessment completed, see flow sheet for details. Pt denies needs from sql report writer at this time. Call light in reach. Care is ongoing. * Sury Caldwell OTR/Dee - 05/30/2025 8:26 AM EDT [facility] Inpatient/Observation Date: 05/30/2025 Patient Name: Virgil Warner [...] Baum PT - 05/30/2025 8:17 AM EDT [facility] Inpatient/Observation/Outpatient Rehabilitation Date: 05/30/2025 Patient Name: Virgil [...] to: Safe and IND with all mobility. Therapist/A And P Mechanic will attempt to see this patient, at our earliest opportunity. Sonia Baum, PT, DPT Date: 05/30/2025 * Collette Piña, RN - 05/30/2025 7:55 AM EDT Patient awake and resting in bed upon sql report writer entering the room. Patient is alert [...] from the original note were not included. [facility] Department of Pharmacy Pharmacy Renal Adjustment [...] from the original note were not included. [facility] Department of Pharmacy Pharmacy Renal Adjustment [...] for CrCl 30-<80mL/min. Thank you, Guera Du [facility],05/30/2025,6:48 AM * Jamison Resendiz [facility] - 05/30/2025 5:06 AM EDT PHARMACY NOTE: [...] 05/30/2025 4:57 AM EDT Pt arrived to [facility] via wheelchair from ED. Pt [...] at this time. [place] [id number] Hospital Discharge instructions* Discharge Instr - Activity* [...] at most local grocery stores, pharmacies, and [employer]-stores. If you have any questions about your diet or nutrition, call the hospital and ask for the dietitian. Regular Diet * Discharge Instr - SHAR* Collette Piña RN - 05/31/2025 12:28 PM EDT Continuity of Care Form Patient Name: Virgil Warner : 1975 Admit date: 05/29/2025 Discharge date: Code Status Order: Full Code Advance Directives: Admitting Physician: Emanuel Danielle MD PCP: Vivian Lemos, TELEPHONE STATION REPAIRER - RECEPTIONIST DOCTOR'S OFFICE Discharging Nurse: Discharging Hospital Unit/Room#: 0303/0303-01 Discharging Unit Phone Number: Emergency Contact: Extended Emergency Contact Information Primary Emergency Contact: Yoel Warner [address]: [address] [place] [id number] Mobile Relation: Spouse Secondary Emergency Contact: Iliana Green Mobile Relation: Child Past Surgical History: Past Surgical History: Procedure Laterality Date ANKLE SURGERY Left 07/23/2024 ANKLE EXTERNAL FIXATOR APPLICATION (ORTHOFIX) performed by Meera Mike DPM at [facility] OR BLADDER SUSPENSION CARDIAC CATHETERIZATION Left 12/31/2015 right radial / Dr. Vargas/ No stents COLONOSCOPY N/A 12/08/2022 COLONOSCOPY POLYPECTOMY SNARE/COLD BIOPSY performed by Tari Curtis MD at [facility] OR COLONOSCOPY 12/08/2022 -polyps(hyperplastic)tortuous colon CYSTOSCOPY Left with stent FOOT CLOSED REDUCTION Left 07/23/2024 FOOT CLOSED REDUCTION PINNING performed by Meera Mike DPM at [facility] OR FOOT SURGERY Left 09/14/2024 REMOVE EXTERNAL FIXATOR LEFT FOOT performed by Meera Mike DPM at [facility] OR FOOT SURGERY Left 09/14/2024 SUBTALAR JOINT FUSION FUSION MIDFOOT MULTIPLE JOINTS LEFT FOOT performed by Meera Mike DPMat [facility] OR HYSTERECTOMY (CERVIX STATUS UNKNOWN) KIDNEY [...] Immunization History Administered Date(s) Administered Influenza A ([id number]) Vaccine PF IM 08/29/2009 Influenza Virus Vaccine [...] Pain in upper limb M79.603 Diabetic neuropathy ([facility]) E11.40 Fibromyalgia M79.7 Depression F32.A Controlled type 2 diabetes mellitus with diabetic polyneuropathy, with long-term current use of insulin ([facility]) E11.42, Z79.4 Ureteric calculus N20.1 Gross hematuria R31.0 History of kidney stones Z87.442 Renal stones N20.0 Idiopathic acute pancreatitis K85.00 Hypertriglyceridemia E78.1 SIRS without infection with organ dysfunction ([facility]) R65.11 Generalized abdominal pain R10.84 Perirectal abscess K61.1 Tobacco abuse Z72.0 Essential hypertension I10 Dyslipidemia E78.5 Type 2 diabetes mellitus with hyperglycemia ([facility]) E11.65 Multiple joint pain M25.50 Abnormal LFTs [...] 2 diabetes mellitus with Charcot joint arthropathy ([facility]) E11.610 Charcot joint of left foot M14.672 Acquired posterior equinus, left M21.862 Diabetes ([facility]) E11.9 Multiple closed fractures of metatarsal bone of left foot S92.302A Dislocation of tarsometatarsal joint of left foot S93.325A Charcot's joint of foot, left M14.672 BAILEE (acute kidney injury) N17.9 Orthostatic hypotension I95.1 Severe obesity (BMI >= 40) ([facility]) E66.01 LAYNE (obstructive sleep apnea) G47.33 Lightheaded [...] MENTAL STATUS:} IV Access: { SHAR IV ACCESS:277452398} Nursing Mobility/ADLs: Walking {CHP DME ADLs:336140355} Transfer {CHP DME ADLs:264406073} Bathing {CHP DME ADLs:477218872} Dressing {CHP DME ADLs:423871863} Toileting {CHP DME ADLs:523170072} Feeding {CHP DME ADLs:453932563} Budget Manager {P DME ADLs:525335405} Med Delivery { SHAR MED Delivery:431370103} Wound Care Documentation and Therapy: Incision 09/14/24 Foot Left (Active) Number of days: 259 Elimination: Continence: Bowel: {YES / NO:} Bladder: {YES / NO:} Urinary Catheter: {Urinary Catheter:172721524} Colostomy/Ileostomy/Ileal Conduit: {YES / NO:} Date of Last BM: Intake/Output Summary (Last 24 hours) at 05/31/2025 1228 Last data filed at 05/31/2025 1150 Gross per 24 hour Intake 4057.74 ml Output 2900 ml Net 1157.74 ml I/O last 3 completed shifts: In: 3831.4 [P.O.:700; I.V.:3131.4] Out: 4050 [Urine:4050] Safety Concerns: { SHAR Safety Concerns:813681570} Impairments/Disabilities: { SHAR Impairments/Disabilities:612128951} Nutrition Therapy: Current Nutrition Therapy: { SHAR Diet List:281182256} Routes of Feeding: {CHP DME Other Feedings:720606690} Liquids: {Electronic Commerce Specialist liquid thickness:58040} Daily Fluid Restriction: {CHP DME Yes amt example:450814014} Last Modified Barium Swallow with Video (Video Swallowing Test): {Done Not Done Date:} Treatments at the Time of Hospital Discharge: Respiratory Treatments: Oxygen Therapy: {Therapy; copd oxygen:37717} Ventilator: {[facility] Vent List:926975771} Rehab Therapies: {THERAPEUTIC INTERVENTION:0617232021} Weight Bearing Status/Restrictions: { CC Weight Bearin} Other Medical Equipment (for information only, NOT a DME order): {EQUIPMENT:943404711} Other Treatments: Patient's personal belongings (please select all that are sent with patient): {CHP DME Belongings:789733368} RN SIGNATURE: {Esignature:705905346} CASE MANAGEMENT/SOCIAL WORK SECTION Inpatient Status Date: Readmission Risk Assessment Score: [facility] RISK OF UNPLANNED READMISSION 2.0 14.4 Total Score Discharging to Facility/ Agency Name: Address: Phone: Fax: Dialysis Facility (if applicable) Name: Address: Dialysis Schedule: Phone: Fax: Block Sorter/Rail Operations Controller signature: {Esignature:318286264} PHYSICIAN SECTION Prognosis: {Prognosis:9154581418} Condition at Discharge: { Patient Condition:025866721} Rehab Potential (if transferring to Rehab): {Prognosis:6725633372} Recommended Labs or Other Treatments After Discharge: Physician Certification: I certify the above information and transfer of Virgil Warner is necessary for the continuing treatment of the diagnosis listed and that she requires {Admit to AppropriateLevel of Care:09648} for {GREATER/LESS:224037037} 30 days. Update Admission H&P: {CHP DME Changes in HandP:906613495} PHYSICIAN SIGNATURE: {Esignature:537599130} * Attachments The following attachments cannot be sent through Care Everywhere. * Acute Kidney Injury (Malawian) * Hypertension: General Info (Malawian) documented [facility] Discharge instructions* Discharge Instructions* Kelly Boston RN - 05/29/2025 2:28 PM EDT Allergy medications held today. Please call next week to reschedule allergy shots. Follow-up with Dr Ardon's office regarding medication changes and appointment . documented in this encounterR[facility] [place] History of Present illness Narrative* Kelly Boston [...] or symptoms of distress. documented in this encounterRivers[facility] [place] History of Present illness Narrative* Olivia Block, PT - 05/29/2025 1:00 PM EDT [facility] Outpatient Physical Therapy Daily Note Patient: Virgil Warner : 1975 CSN #: [id number] Referring Physician: Meera Mike DPM Date: 05/29/2025 Diagnosis: Closed dislocation of tarsal joint of L foot, S93.315A, Charcot's of L foot joint, M14.672, type 2 DM with polyneuropathy, E11.42, vertigo, R42 Treatment Diagnosis: s/p L Lisfranc injury with beam placement, L foot pain, fibromyalgia associated dizziness vs. autonomic dysfunction Onset Date: 07/13/24 PT Insurance Information: [employer] [place] Total # of Visits Approved: 16 Per [...] stands from the chair 2x6 Exercise 17: oriental orthodox pews on air ex 1x minute Assessment Assessment: Continued with calf strength and ankle stability this date. Pt with limited tolerance to all activites. Pt with multiple requests to do 30s or 15s for repetitions rather than the [id number] set by therapist. Pt reports multiple times [...] increased pain or symptoms. - NOT MET Correction Goals Time Frame for Correction Goals : 5 weeks Correction Goal 1: Patient will be independent and compliant with a HEP Correction Goal 2: Patient will improve bilateral ankle dorsiflexion ROM to >7* for ambulation. MET- 12 degrees left DF Social And Political Studies Professor Goal 3: Patient will improve L ankle strength to >/= 4/5 in all planes to improve stability with ambulation. Progressing (04/29) : left DF:4/5, PF:4/5 ,Inv: 4/5, Rosa: 4/5 Social And Political Studies Professor Goal 4: Patient will be able to hold SLS for 30 seconds without LOB. (04/30) Bilateral SLS about 2-3 seconds before LOB Social And Political Studies Professor Goal 5: Patient will report 70% improvement in overall symptoms and function - She reports she is 50-60% better overall. She reports she feels like she lacks balance and strength. Minutes Tracking: Time In: 1300 Time Out: 1343 Minutes: 43 Timed Code Treatment Minutes: 41 Minutes OLIVIA BLOCK, PT, DPT Date: 05/29/2025 documented in this encounterRivers[facility] [place]08-28-[facility] Hospital Discharge instructions* Discharge Instructions* Vanna Laws RN - 05/23/2025 2:35 PM EDT Verbally reviewed discharge instructions for care and follow up. Previous print out of these instructions were given with prior treatment.Patient verbalized understanding of these instructions. Today's copy offered and declined. documented in this encounterR[facility] [place]08-28-[facility] History of Present illness Narrative* Vanna Laws RN - 05/23/2025 1:15 PM EDT Allergy injection flow sheet Identification of own vial of serum Delayed reaction URI with or without wheezing Time of injection Discharge time Yes No No 8960 9496 Injection Schedule Concentration Dose Location Vial Expiration Date Reviewed GOLD A 0.2ML LEFT ARM YES GOLD B 0.2ML RIGHT ARM YES Injection given by: GABRIEL RN Injection site checked upon discharge by: GABRIEL RN Comments: no local Reminder: document all injections in the allergy binder. [facility] History of Present illness Narrative* Hussein Rich PTA - 05/20/2025 1:30 PM EDT Physical Therapy [facility] Outpatient Physical Therapy Daily Note Patient: Virgil Warner : 1975 CSN #: [id number] Referring Physician: Meera Mike DPM Date: 05/20/2025 Treatment Diagnosis: s/p L Lisfranc injury with beam placement, L foot pain Onset Date: 07/13/24 PT Insurance Information: [employer] [place] Total # of Visits Approved: 16 Per [...] stands from the chair 2x10 Exercise 17: oriental orthodox pews on air ex 1x minute Assessment Body Structures, Functions, Activity Limitations Requiring Skilled Therapeutic Intervention: Decreased functional mobility , Decreased ADL status, Decreased ROM, Decreased strength, Decreased endurance, Decreased balance, Decreased high- level IADLs, Increased pain Assessment: Patient reports intermittent bouts of want to lean backwards when standing today. Added oriental orthodox pews on air ex for further ankle [...] increased pain or symptoms. - NOT MET Social And Political Studies Professor Goals Time Frame for Correction Goals : 5 weeks Correction Goal 1: Patient will be independent and compliant with a HEP Social And Political Studies Professor Goal 2: Patient will improve bilateral ankle dorsiflexion ROM to >7* for ambulation. MET- 12 degrees left DF Social And Political Studies Professor Goal 3: Patient will improve L ankle strength to >/= 4/5 in all planes to improve stability with ambulation. Progressing (04/29) : left DF:4/5, PF:4/5 ,Inv: 4/5, Rosa: 4/5 Correction Goal 4: Patient will be able to hold SLS for 30 seconds without LOB. (04/30) Bilateral SLS about 2-3 seconds before LOB Correction Goal 5: Patient will report 70% improvement [...] 05/20/2025 2:44 PM EDT documented in this encounterR[facility] [place] Hospital Discharge instructions* Discharge Instructions* Shelley Sunshine RN - 05/16/2025 2:31 PM EDT Verbally reviewed discharge instructions for care and follow up. Previous print out of these instructions were given with prior treatment.Patient verbalized understanding of these instructions. Today's copy offered and declined. documented in this encounterR[facility] [place]08-21-[facility] History of Present illness Narrative* Shelley Sunshine RN - 05/16/2025 2:30 PM EDT Allergy injection flow sheet Identification of own vial of serum Delayed reaction URI with or without wheezing Time of injection [place] 9739 8108 Injection Schedule Concentration Dose Location Vial Expiration Date Reviewed Gold#A 0.1ml left yes Gold#B 0.1ml right Injection given by: Radha CARLOS Injection site checked upon discharge by: Radha CARLOS Comments: no local Reminder: document all injections in the allergy binder. documented in this encounterR[facility] [place]-21-[facility] History of Present illness Narrative* Hussein Rich PTA - 05/16/2025 1:30 PM EDT Physical Therapy [facility] Outpatient Physical Therapy Daily Note Patient: Virgil Warner : 1975 CSN #: [id number] Referring Physician: Meera Mike DPM Date: 05/16/2025 Treatment Diagnosis: s/p L Lisfranc injury with beam placement, L foot pain Onset Date: 07/13/24 PT Insurance Information: [employer] [place] Total # of Visits Approved: 16 Per [...] increased pain or symptoms. - NOT MET Social And Political Studies Professor Goals Time Frame for Correction Goals : 5 weeks Social And Political Studies Professor Goal 1: Patient will be independent and compliant with a HEP Social And Political Studies Professor Goal 2: Patient will improve bilateral ankle dorsiflexion ROM to >7* for ambulation. MET- 12 degrees left DF Correction Goal 3: Patient will improve L ankle strength to >/= 4/5 in all planes to improve stability with ambulation. Progressing (04/29) : left DF:4/5, PF:4/5 ,Inv: 4/, Rosa: 4/5 Correction Goal 4: Patient will be able to hold SLS for 30 seconds without LOB. (04/30) Bilateral SLS about 2-3 seconds before LOB Correction Goal 5: Patient will report 70% improvement [...] 2:19 PM EDT documented in this encounter[facility] History of Present illness Narrative* Javed Melendrez - 05/13/2025 2:30 PM EDT Physical Therapy Patient cancelled and rescheduled due to not feeling well. Cosigned by Olivia Nam PT at 05/13/2025 1:51 PM EDT documented in this encounterBon [facility] History of Present illness Narrative* Hussein Rich PTA - 05/10/2025 2:30 PM EDT Physical Therapy [facility] Outpatient Physical Therapy Daily Note Patient: Virgil Warner : 1975 CSN #: [id number] Referring Physician: Meera Mike DPM Date: 05/10/2025 Treatment Diagnosis: s/p L Lisfranc injury with beam placement, L foot pain Onset Date: 07/13/24 PT Insurance Information: [employer] [place] Total # of Visits Approved: 16 Per [...] increased pain or symptoms. - NOT MET Correction Goals Time Frame for Social And Political Studies Professor Goals : 5 weeks Social And Political Studies Professor Goal 1: Patient will be independent and compliant with a HEP Correction Goal 2: Patient will improve bilateral ankle dorsiflexion ROM to >7* for ambulation. MET- 12 degrees left DF Correction Goal 3: Patient will improve L ankle strength to >/= 4/5 in all planes to improve stability with ambulation. Progressing (04/29) : left DF:4/5, PF:4/5 ,Inv: 4/, Rosa: 4/5 Correction Goal 4: Patient will be able to hold SLS for 30 seconds without LOB. (04/30) Bilateral SLS about 2-3 seconds before LOB Correction Goal 5: Patient will report 70% improvement [...] 05/10/2025 3:14 PM EDT documented in this encounterR[facility] Hospital Discharge instructions* Discharge Instructions* Vanna Laws RN - 05/09/2025 3:38 PM EDT Verbally reviewed discharge instructions for care and follow up. Previous print out of these instructions were given with prior treatment.Patient verbalized understanding of these instructions. Today's copy offered and declined. documented in this encounterR[facility]08-14-[facility]25 History of Present illness Narrative* Sonia Baum, PT - 05/09/2025 3:00 PM EDT [facility] Outpatient Physical Therapy Daily Note Patient: Virgil Warner : 1975 [facility] #: [id number] Referring Physician: Meera Mike DPM Date: 05/09/2025 Diagnosis: Closed dislocation of tarsal joint of L foot, S93.315A, Charcot's of L foot joint, M14.672, type 2 DM with polyneuropathy, E11.42 Treatment Diagnosis: s/p L Lisfranc injury with beam placement, L foot pain Onset Date: 07/13/24 PT Insurance Information: [employer] [place] Total # of Visits Approved: 16 Per [...] increased pain or symptoms. - NOT MET Correction Goals Time Frame for Social And Political Studies Professor Goals : 5 weeks Social And Political Studies Professor Goal 1: Patient will be independent and compliant with a HEP Correction Goal 2: Patient will improve bilateral ankle dorsiflexion ROM to >7* for ambulation. MET- 12 degrees left DF Social And Political Studies Professor Goal 3: Patient will improve L ankle strength to >/= 4/5 in all planes to improve stability with ambulation. Progressing (04/29) : left DF:4/5, PF:4/5 ,Inv: 4/5, Rosa: 4/5 Social And Political Studies Professor Goal 4: Patient will be able to hold SLS for 30 seconds without LOB. (04/30) Bilateral SLS about 2-3 seconds before LOB Correction Goal 5: Patient will report 70% improvement in overall symptoms and function - She reports she is 50-60% better overall. She reports she feels like she lacks balance and strength. Minutes Tracking: Time In: 1459 Time Out: 1539 Minutes: 40 Timed Code Treatment Minutes: 39 Minutes Sonia Baum PT, DPT Date: 05/09/2025 documented in this encounterR[facility]-14-[facility] History of Present illness Narrative* Vanna Laws RN - 05/09/2025 2:15 PM EDT Allergy injection flow sheet Identification of own vial of serum Delayed reaction URI with or without wheezing Time of injection Discharge time Yes No No 6339 0742 Injection Schedule Concentration Dose Location Vial Expiration Date Reviewed Gold A 0.05ml Left arm yes Gold B 0.05ml Right arm yes Injection given by: GABRIEL CARLOS Injection site checked upon discharge by: GABRIEL CARLSO Comments: no local Reminder: document all injections in the allergy binder. documented in this encounterR[facility]-07-[facility] Hospital Discharge instructions* Discharge Instructions* Vanna Laws RN - 05/02/2025 3:56 PM EDT Verbally reviewed discharge instructions for care and follow up. Previous print out of these instructions were given with prior treatment.Patient verbalized understanding of these instructions. Today's copy offered and declined. documented in this encounterR[facility]08-07-20[facility] History of Present illness Narrative* Vanna Laws RN - 05/02/2025 2:15 PM EDT Allergy injection flow sheet Identification of own vial of serum Delayed reaction URI with or without wheezing Time of injection Discharge time Yes no No 0123 1710 (patient had another appointment in the hospital) Injection Schedule Concentration Dose Location Vial Expiration Date Reviewed Gold A 0.03ml Left arm yes Gold B 0.03ml Right arm yes Injection given by: GABRIEL CARLOS Injection site checked upon discharge by: GABRIEL CARLOS Comments: no local Reminder: document all injections in the allergy binder. documented in this encounterR[facility] History of Present illness Narrative* Olivia Nam, PT - 04/30/2025 12:45 PM EDT [facility] Outpatient Physical Therapy Daily Note Patient: Virgli Warner : 1975 CSN #: [id number] Referring Physician: Meera Mike DPM Date: 04/30/2025 Treatment Diagnosis: s/p L Lisfranc injury with beam placement, L foot pain Onset Date: 07/13/24 PT Insurance Information: [employer] [place] Total # of Visits Approved: 16 Per [...] increased pain or symptoms. - NOT MET Social And Political Studies Professor Goals Time Frame for Social And Political Studies Professor Goals : 5 weeks Social And Political Studies Professor Goal 1: Patient will be independent and compliant with a HEP Correction Goal 2: Patient will improve bilateral ankle dorsiflexion ROM to >7* for ambulation. MET- 12 degrees left DF Social And Political Studies Professor Goal 3: Patient will improve L ankle strength to >/= 4/5 in all planes to improve stability with ambulation. Progressing (04/29) : left DF:4/5, PF:4/5 ,Inv: 4/5, Rosa: 4/5 Correction Goal 4: Patient will be able to hold SLS for 30 seconds without LOB. (04/30) Bilateral SLS about 2-3 seconds before LOB Social And Political Studies Professor Goal 5: Patient will report 70% improvement in overall symptoms and function - She reports she is 50-60% better overall. She reports she feels like she lacks balance and strength. Minutes Tracking: Time In: 1246 Time Out: 1329 Minutes: 43 Timed Code Treatment Minutes: 41 Minutes Olivia Nam PT, DPT, OCS, Cert. DN Date: 04/30/2025 documented in this encounterR[facility] Hospital Discharge instructions* Discharge Instructions* Shelley Sunshine RN - 04/29/2025 3:14 PM EDT Verbally reviewed discharge instructions for care and follow up. Previous print out of these instructions were given with prior treatment.Patient verbalized understanding of these instructions. Today's copy offered and declined. documented in this encounterR[facility] History of Present illness Narrative* Shelley Sunshine RN - 04/29/2025 3:00 PM EDT Allergy injection flow sheet Identification of own vial of serum Delayed reaction URI with or without wheezing Time of injection Discharge time Yes No No 0389 1402 Injection Schedule Concentration Dose Location Vial Expiration Date Reviewed Blue#A 0.5ml left yes Blue#B 0.5ml right Injection given by: Radha CARLOS Injection site checked upon discharge by: Radha CARLOS Comments: no local Reminder: document all injections in the allergy binder. documented in this encounterBon [facility] History of Present illness Narrative* Hussein RichMILAGROS - 04/29/2025 2:15 PM EDT Physical Therapy [facility] Out[facility] Physical Therapy Daily Note Patient: Virgil Warner : 1975 CSN #: [id number] Referring Physician: Meera Mike DPM Date: 04/29/2025 Treatment Diagnosis: s/p L Lisfranc injury with beam placement, L foot pain Onset Date: 07/13/24 PT Insurance Information: [employer] [place] Total # of Visits Approved: 10 Per [...] HR 15# KB x15 / seated TR c27--att this date Exercise 11: [employer]it[employer] L1 x [...] increased pain or symptoms. - NOT MET Social And Political Studies Professor Goals Time Frame for Social And Political Studies Professor Goals : 5 weeks Correction Goal 1: Patient will be independent and compliant with a HEP Social And Political Studies Professor Goal 2: Patient will improve bilateral ankle dorsiflexion ROM to >7* for ambulation. MET- 12 degrees left DF Social And Political Studies Professor Goal 3: Patient will improve L ankle strength to >/= 4/5 in all planes to improve stability with ambulation. Progressing (04/29) : left DF:4/5, PF:4/5 ,Inv: 4/5, Rosa: 4/5 Correction Goal 4: Patient will be able to hold SLS for 30 seconds without LOB. (04/29) progressing 30seconds but requires at least 1 UE support Correction Goal 5: Patient will report 70% improvement in overall symptoms and function. Minutes Tracking: Time In: 1414 Time Out: 1455 Minutes: 41 Timed Code Treatment Minutes: 39 Minutes Hussein Rich PTA Date: 04/29/2025 Cosigned by Olivia Nam, PT at 04/29/2025 3:27 PM EDT documented in this encounterBon [facility] Discharge instructions* Discharge Instructions* Vanna Laws RN - 04/25/2025 3:34 PM EDT Verbally reviewed discharge instructions for care and follow up. Previous print out of these instructions were given with prior treatment.Patient verbalized understanding of these instructions. Today's copy offered and declined. documented in this encounterR[facility] History of Present illness Narrative* Vanna Laws RN - 04/25/2025 3:00 PM EDT Allergy injection flow sheet Identification of own vial of serum Delayed reaction URI with or without wheezing Time of injection Discharge time Yes No No 2956 2608 Injection Schedule Concentration Dose Location Vial Expiration Date Reviewed BLUE A 0.4ML LEFT ARM YES BLUE B 0.4ML RIGHT ARM YES Injection given by: Madisno LAWS RN Injection site checked upon discharge by: GABRIEL CARLOS Comments: no local Reminder: document all injections in the allergy binder. documented in this encounterR[facility]07-31-[facility] History of Present illness Narrative* Alanna Chappell MILAGROS - 04/25/2025 2:15 PM EDT [facility] Outpatient Physical Therapy Daily Note Patient: Virgil Warner : 1975 CSN #: [id number] Referring Physician: Meera Mike DPM Date: 04/25/2025 Treatment Diagnosis: s/p L Lisfranc injury with beam placement, L foot pain Onset Date: 07/13/24 PT Insurance Information: [employer] [place] Total # of Visits Approved: 10 Per [...] increased pain or symptoms. - NOT MET Correction Goals Time Frame for Correction Goals : 5 weeks Social And Political Studies Professor Goal 1: Patient will be independent and compliant with a HEP Social And Political Studies Professor Goal 2: Patient will improve bilateral ankle dorsiflexion ROM to >7* for ambulation. MET- 12 degrees left DF Correction Goal 3: Patient will improve L ankle strength to >/= 4/5 in all planes to improve stability with ambulation. Correction Goal 4: Patient will be able to hold SLS for 30 seconds without LOB Correction Goal 5: Patient will report 70% improvement in overall symptoms and function. Minutes Tracking: Time In: 1415 Time Out: 1450 Minutes: 35 Alanna Chappell PTA Date: 04/25/2025 Cosigned by Olivia Nam, PT at 04/25/2025 3:10 PM EDT documented in this encounterBon [facility] Discharge instructions* Discharge Instructions* Kelly Boston RN - 04/22/2025 3:19 PM EDT Verbally reviewed discharge instructions for care and follow up. Previous print out of these instructions were given with prior treatment.Patient verbalized understanding of these instructions. Today's copy offered and declined. [facility] History of Present illness Narrative* Kelly Boston RN - 04/22/2025 3:00 PM EDT Allergy injection flow sheet Identification of own vial of serum Delayed reaction URI with or without wheezing Time of injection Discharge time Yes No No 2985 1538 Injection Schedule Concentration Dose Location Vial Expiration Date Reviewed Blue Vial A 0.3 ml Left arm yes Blue Vial B 0.3 ml Right arm yes Injection given by: Mark Boston RN Injection site checked upon discharge by: Mark Boston RN Comments: no local Reminder: document all injections in the allergy binder. documented in this encounterR[facility] History of Present illness Narrative* Alanna Chappell PTA - 04/22/2025 2:15 PM EDT [facility] Outpatient Physical Therapy Daily Note Patient: Virgil Warner : 1975 CSN #: [id number] Referring Physician: Meera Mike DPM Date: 04/22/2025 Treatment Diagnosis: s/p L Lisfranc injury with beam placement, L foot pain Onset Date: 07/13/24 PT Insurance Information: [employer] [place] Total # of Visits Approved: 10 Per [...] HR 15# KB x15 / seated TR f82--jxn this date Exercise 11: Scitfit L1 x [...] increased pain or symptoms. - NOT MET Correction Goals Time Frame for Correction Goals : 5 weeks Correction Goal 1: Patient will be independent and compliant with a HEP Correction Goal 2: Patient will improve bilateral ankle dorsiflexion ROM to >7* for ambulation. MET- 12 degrees left DF Correction Goal 3: Patient will improve L ankle strength to >/= 4/5 in all planes to improve stability with ambulation. Correction Goal 4: Patient will be able to hold SLS for 30 seconds without LOB Social And Political Studies Professor Goal 5: Patient will report 70% improvement in overall symptoms and function. Minutes Tracking: Time In: 1414 Time Out: 1450 Minutes: 36 Alanna Chappell PTA Date: 04/22/2025 Cosigned by Olivia Nam, PT at 04/22/2025 3:01 PM EDT documented in this encounterBon [facility] History of Present illness Narrative* Swapna Prado [...] in the allergy binder. documented in [facility] encounterR[facility] Discharge instructions* Discharge Instructions* Swapna Prado RN - 04/18/2025 3:00 PM EDT Verbally reviewed discharge instructions for care and follow up. Previous print out of these instructions were given with prior treatment.Patient verbalized understanding of these instructions. Today's copy offered and declined. documented in this encounterR[facility] History of Present illness Narrative* Olivia Nam, PT - 04/18/2025 2:00 PM EDT [facility] Outpatient Physical Therapy Daily Note Patient: Virgil Warner : 1975 CSN #: [id number] Referring Physician: Meera Mike DPM Date: 04/18/2025 Treatment Diagnosis: s/p L Lisfranc injury with beam placement, L foot pain Onset Date: 07/13/24 PT Insurance Information: [employer] [place] Total # of Visits Approved: 10 Per [...] increased pain or symptoms. - NOT MET Social And Political Studies Professor Goals Time Frame for Correction Goals : 5 weeks Social And Political Studies Professor Goal 1: Patient will be independent and compliant with a HEP Social And Political Studies Professor Goal 2: Patient will improve bilateral ankle dorsiflexion ROM to >7* for ambulation. MET- 12 degrees left DF Correction Goal 3: Patient will improve L ankle strength to >/= 4/5 in all planes to improve stability with ambulation. Correction Goal 4: Patient will be able to hold SLS for 30 seconds without LOB Correction Goal 5: Patient will report 70% improvement in overall symptoms and function. Minutes Tracking: Time In: 1402 Time Out: 1447 Minutes: 45 Timed Code Treatment Minutes: 43 Minutes Olivia Nam, PT, DPT, OCS, Cert. DN Date: 04/18/2025 documented in this encounterR[facility]25 [facility] Discharge instructions* Discharge Instructions* Kelly Boston RN - 04/15/2025 3:14 PM EDT Verbally reviewed discharge instructions for care and follow up. Previous print out of these instructions were given with prior treatment.Patient verbalized understanding of these instructions. Today's copy offered and declined. documented in this encounterR[facility] History of Present illness Narrative* Kelly Boston RN - 04/15/2025 3:00 PM EDT Allergy injection flow sheet Identification of own vial of serum Delayed reaction URI with or without wheezing Time of injection Discharge time Yes No No 1506 1522 Injection Schedule Concentration Dose Location Vial Expiration Date Reviewed Blue Vial A 0.1 ml Left arm yes Blue Vial B 0.1 ml Right arm yes Injection given by: Mark Boston RN Injection site checked upon discharge by: Mark Boston RN Comments: no local Reminder: document all injections in the allergy binder. documented in this encounterR[facility] Hospital Discharge instructions* Discharge Instructions* Vanna Laws RN - 04/11/2025 3:25 PM EDT Outpatient Discharge Instructions for Allergy Injections [address] [id number] Activity: Avoid strenuous activity or exercise for [...] NEAREST EMERGENCY ROOM. Comments: documented in this encounterR[facility] History of Present illness Narrative* Vanna Laws RN - 04/11/2025 3:00 PM EDT Allergy injection flow sheet Identification of own vial of serum Delayed reaction URI with or without wheezing Time of injection Discharge time Yes No No 3332 1979 Injection Schedule Concentration Dose Location Vial Expiration Date Reviewed Blue A 0.05ml Left arm yes Blue B 0.05ml Right arm yes Injection given by: GABRIEL CARLOS Injection site checked upon discharge by: GABRIEL CARLOS Comments: no local Reminder: document all injections in the allergy binder. documented in this encounterR[facility] History of Present illness Narrative* Alanna Chappell PTA - 04/11/2025 2:15 PM EDT [facility] Outpatient Physical Therapy Daily Note Patient: Virgil Warner : 1975 [facility] #: [id number] Referring Physician: Meera Mike DPM Date: 04/11/2025 Treatment Diagnosis: s/p L Lisfranc injury with beam placement, L foot pain Onset Date: 07/13/24 PT Insurance Information: [employer] [place] Total # of Visits Approved: 10 Per [...] increased pain or symptoms. - NOT MET Social And Political Studies Professor Goals Time Frame for Correction Goals : 5 weeks Social And Political Studies Professor Goal 1: Patient will be independent and compliant with a HEP Social And Political Studies Professor Goal 2: Patient will improve bilateral ankle dorsiflexion ROM to >7* for ambulation. MET- 12 degrees left DF Social And Political Studies Professor Goal 3: Patient will improve L ankle strength to >/= 4/5 in all planes to improve stability with ambulation. Correction Goal 4: Patient will be able to hold SLS for 30 seconds without LOB Correction Goal 5: Patient will report 70% improvement in overall symptoms and function. Minutes Tracking: Time In: 1415 Time Out: 1450 Minutes: 35 Alanna Chappell PTA Date: 04/11/2025 Cosigned by Olivia Nam, PT at 04/11/2025 3:10 PM EDT documented in this encounterR[facility] History of Present illness Narrative* Karrie Valadez - 01/29/2025 10:45 AM EDT [facility] Inpatient/Observation/Outpatient Rehabilitation Date: 01/29/2025 Patient Name: Virgil [...] does not require skilled services due to: Therapist/A And P Mechanic will attempt to see this patient, at our earliest opportunity. Karrie Valadez Date: 01/29/2025 Cosigned by Olivia Block, PT at 01/29/2025 8:19 AM EDT documented in this encounterR[facility]04-29-[facility] History of Present illness Narrative* Karrie Valadez - 01/22/2025 11:30 AM EDT [facility] Inpatient/Observation/Outpatient Rehabilitation Date: 01/22/2025 Patient Name: Virgil [...] does not require skilled services due to: Therapist/A And P Mechanic will attempt to see this patient, at our earliest opportunity. Karrie Valadez Date: 01/22/2025 Cosigned by Hussein iRch PTA at 01/22/2025 7:40 AM EDT * Karrie Valadez - 01/22/2025 11:30 AM EDT [facility] Inpatient/Observation/Outpatient Rehabilitation Date: 01/24/2025 Patient Name: Virgil [...] does not require skilled services due to: Therapist/A And P Mechanic will attempt to see this patient, at our earliest opportunity. Karrie Valadez Date: 01/24/2025 Cosigned by Alanna Chappell PTA at 01/24/2025 9:24 AM EDT documented in this encounterBon [facility] History of Present illness Narrative* Makayla Lozoya PTA - 01/17/2025 2:45 PM EDT Physical Therapy [facility] Outpatient Physical Therapy Daily Note Patient: Virgil Warner : 1975 CSN #: [id number] Referring Physician: Meera Mike DPM Date: 01/17/2025 Treatment Diagnosis: s/p L Lisfranc injury with beam placement, L foot pain Onset Date: 07/13/24 PT Insurance Information: [employer] [place] Total # of Visits Approved: 22 Per [...] tolerate exercise without increased pain or symptoms.-met Social And Political Studies Professor Goals Time Frame for Correction Goals : 6 weeks Correction Goal 1: Patient will be independent and compliant with a HEP - progressing Correction Goal 2: Patient will improve bilateral ankle dorsiflexion ROM to >7* for ambulation. MET- 10 degrees left DF (01/08/2025) Correction Goal 3: Patient will improve L ankle strength to >/= 4/5 in all planes to improve stability with ambulation. progressing (01/08/2025) left DF: 4/5, PF: 4/5:,Inv 4/5:, Evr: 4-/5, pain withplanterflexion and eversion Social And Political Studies Professor Goal 4: Patient will be able to hold SLS for 30 seconds without LOB: unable to fully WB on LLE due to instability - not able to attempt yet at this time Social And Political Studies Professor Goal 5: Patient will report 70% improvement in overall symptoms and function. Minutes Tracking: Time In: 1446 Time Out: 1531 Minutes: 45 Timed Code Treatment Minutes: 43 Minutes Makayla Lozoya PTA Date: 01/17/2025 Cosigned by Olivia Nam, PT at 01/17/2025 4:34 PM EDT documented in this encounterBon [facility]04-[facility] History of Present illness Narrative* Karrie Valadez - 01/14/2025 12:15 PM EDT [facility] Inpatient/Observation/Outpatient Rehabilitation Date: 01/14/2025 Patient Name: Virgil [...] does not require skilled services due to: Therapist/A And P Mechanic will attempt to see this patient, at our earliest opportunity. Karrie Valadez Date: 01/14/2025 Cosigned by Makayla Lozoya PTA at 01/14/2025 8:36 AM EDT documented in this encounterBon [facility]04-[facility] History of Present illness Narrative* Hussein Rich PTA - 01/08/2025 2:30 PM EDT Physical Therapy [facility] Outpatient Physical Therapy Daily Note Patient: Virgil Warner : 1975 CSN #: [id number] Referring Physician: Meera Mike DPM Date: 01/08/2025 Treatment Diagnosis: s/p L Lisfranc injury with beam placement, L foot pain Onset Date: 07/13/24 PT Insurance Information: [employer] [place] Total # of Visits Approved: 12 Per [...] HS curls 15x BLEs // mini squats p32--aktw shoe donned1 UE support Exercise 11: seated [...] tolerate exercise without increased pain or symptoms.-met Social And Political Studies Professor Goals Time Frame for Social And Political Studies Professor Goals : 6 weeks Social And Political Studies Professor Goal 1: Patient will be independent and compliant with a HEP Correction Goal 2: Patient will improve bilateral ankle dorsiflexion ROM to >7* for ambulation. MET- 10 degrees left DF (01/08/2025) Social And Political Studies Professor Goal 3: Patient will improve L ankle strength to >/= 4/5 in all planes to improve stability with ambulation. progressing (01/08/2025) left DF: 4/5, PF: 4/5:,Inv 4/5:, Evr: 4-/5, pain withplanterflexion and eversion Correction Goal 4: Patient will be able to hold SLS for 30 seconds without LOB: unable to fully WB on LLE due to instability Correction Goal 5: Patient will report 70% improvement in overall symptoms and function. Minutes Tracking: Time In: 1432 Time Out: 1512 Minutes: 40 Timed Code Treatment Minutes: 40 Minutes Hussein Rich PTA Date: 01/08/2025 Cosigned by Olivia Nam, PT at 01/08/2025 3:24 PM EDT documented in this encounterBon [facility]04-[facility] History of Present illness Narrative* Alanna Chappell PTA - 12/31/2024 12:45 PM EDT [facility] Outpatient Physical Therapy Daily Note Patient: Virgil Warner : 1975 CSN #: [id number] Referring Physician: Meera Mike DPM Date: 12/31/2024 Treatment Diagnosis: s/p L Lisfranc injury with beam placement, L foot pain Onset Date: 07/13/24 PT Insurance Information: [employer] [place] Total # of Visits Approved: 12 Per [...] HS curls 15x BLEs // mini squats b07--qigv shoe donned Exercise 11: seated heel slides [...] tolerate exercise without increased pain or symptoms.-met Correction Goals Time Frame for Correction Goals : 6 weeks Correction Goal 1: Patient will be independent and compliant with a HEP Social And Political Studies Professor Goal 2: Patient will improve bilateral ankle dorsiflexion ROM to >7* for ambulation. MET- 10 degrees left DF this date after manual (12/19/2024) Correction Goal 3: Patient will improve L ankle strength to >/= 4/5 in all planes to improve stability with ambulation. Correction Goal 4: Patient will be able to hold SLS for 30 seconds without LOB Correction Goal 5: Patient will report 70% improvement in overall symptoms and function. Minutes Tracking: Time In: 1245 Time Out: 1330 Minutes: 45 Alanna Chappell PTA Date: 12/31/2024 Cosigned by Olivia Nam, PT at 12/31/2024 6:53 PM EDT documented in this encounterBon [facility]03-[facility] History of Present illness Narrative* Alanna Chappell PTA - 12/24/2024 12:45 PM EDT [facility] Outpatient Physical Therapy Daily Note Patient: Virgil Warner : 1975 CSN #: [id number] Referring Physician: Meera Mike DPM Date: 12/24/2024 Treatment Diagnosis: s/p L Lisfranc injury with beam placement, L foot pain Onset Date: 07/13/24 PT Insurance Information: [employer] [place] Total # of Visits Approved: 12 Per [...] Exercise 9: Seated LAQ, adduction, HS curl [place]osh[place] tband 15x ea, marching 15x Exercise 10: [...] tolerate exercise without increased pain or symptoms.-Progressing Social And Political Studies Professor Goals Time Frame for Social And Political Studies Professor Goals : 6 weeks Correction Goal 1: Patient will be independent and compliant with a HEP Social And Political Studies Professor Goal 2: Patient will improve bilateral ankle dorsiflexion ROM to >7* for ambulation. MET- 10 degrees left DF this date after manual (12/19/2024) Correction Goal 3: Patient will improve L ankle strength to >/= 4/5 in all planes to improve stability with ambulation. Correction Goal 4: Patient will be able to hold SLS for 30 seconds without LOB Social And Political Studies Professor Goal 5: Patient will report 70% improvement in overall symptoms and function. Minutes Tracking: Time In: 1245 Time Out: 1330 Minutes: 45 Alanna Chappell PTA Date: 12/24/2024 Cosigned by Olivia Nam, PT at 12/24/2024 7:25 PM EDT documented in this encounterBon [facility]03-[facility] History of Present illness Narrative* Hussein Rich PTA - 12/19/2024 1:45 PM EDT Physical Therapy [facility] Outpatient Physical Therapy Daily Note Patient: Virgil Warner : 1975 CSN #: [id number] Referring Physician: Meera Mike DPM Date: 12/19/2024 Treatment Diagnosis: s/p L Lisfranc injury with beam placement, L foot pain Onset Date: 07/13/24 PT Insurance Information: [employer] [place] Total # of Visits Approved: 12 Per [...] Exercise 9: Seated LAQ, adduction, HS curl [place] tband 10x ea, marching 15x Exercise 10: [...] tolerate exercise without increased pain or symptoms.-Progressing Social And Political Studies Professor Goals Time Frame for Correction Goals : 6 weeks Social And Political Studies Professor Goal 1: Patient will be independent and compliant with a HEP Correction Goal 2: Patient will improve bilateral ankle dorsiflexion ROM to >7* for ambulation. MET- 10 degrees left DF this date after manual (12/19/2024) Correction Goal 3: Patient will improve L ankle strength to >/= 4/5 in all planes to improve stability with ambulation. Correction Goal 4: Patient will be able to hold SLS for 30 seconds without LOB Correction Goal 5: Patient will report 70% improvement in overall symptoms and function. Minutes Tracking: Time In: 1338 Time Out: 1439 Minutes: 61 Timed Code Treatment Minutes: 61 Minutes Hussein Rich PTA Date: 12/19/2024 Cosigned by Sonia Baum, PT at 12/19/2024 3:21 PM EDT documented in this encounterBon [facility]03-[facility] History of Present illness Narrative* [place] - 12/17/2024 12:45 PM EDT Physical Therapy [facility] Inpatient/Observation/Outpatient Rehabilitation Date: 12/17/2024 Patient Name: Virgil [...] does not require skilled services due to: Therapist/A And P Mechanic will attempt to see this patient, at our earliest opportunity. Maxim Garcia Date: 12/17/2024 Cosigned by Alanna Chappell PTA at 12/17/2024 8:50 AM EDT documented in this encounterBon [facility]03-[facility] History of Present illness Narrative* Makayla Lozoya PTA - 12/05/2024 2:30 PM EDT Physical Therapy [facility] Outpatient Physical Therapy Daily Note Patient: Virgil Warner : 1975 CSN #: [id number] Referring Physician: Meera Mike DPM Date: 12/05/2024 Treatment Diagnosis: s/p L Lisfranc injury with beam placement, L foot pain Onset Date: 07/13/24 PT Insurance Information: [employer] [place] Total # of Visits Approved: 12 Per [...] tolerate exercise without increased pain or symptoms.-Progressing Social And Political Studies Professor Goals Time Frame for Social And Political Studies Professor Goals : 6 weeks Social And Political Studies Professor Goal 1: Patient will be independent and compliant with a HEP Correction Goal 2: Patient will improve bilateral ankle dorsiflexion ROM to >7* for ambulation. Correction Goal 3: Patient will improve L ankle strength to >/= 4/5 in all planes to improve stability with ambulation. Correction Goal 4: Patient will be able to hold SLS for 30 seconds without LOB Social And Political Studies Professor Goal 5: Patient will report 70% improvement in overall symptoms and function. Minutes Tracking: Time In: 1432 Time Out: 1515 Minutes: 43 Timed Code Treatment Minutes: 40 Minutes Makayla Lozoya PTA Date: 12/05/2024 Cosigned by Olivia Nam, PT at 12/05/2024 7:38 PM EDT documented in this encounterBon [facility] [id number] History of Present illness Narrative* Makayla Lozoya ASSISTANT PRODUCE MANAGER - 12/03/2024 12:30 PM EDT Physical Therapy [facility] Outpatient Physical Therapy Daily Note Patient: Virgil Warner : 1975 CSN #: [id number] Referring Physician: Meera Mike DPM Date: 12/03/2024 Treatment Diagnosis: s/p L Lisfranc injury with beam placement, L foot pain Onset Date: 07/13/24 PT Insurance Information: [employer] [place] Total # of Visits Approved: 12 Per [...] tolerate exercise without increased pain or symptoms.-Progressing Social And Political Studies Professor Goals Time Frame for Correction Goals : 6 weeks Correction Goal 1: Patient will be independent and compliant with a HEP Social And Political Studies Professor Goal 2: Patient will improve bilateral ankle dorsiflexion ROM to >7* for ambulation. Correction Goal 3: Patient will improve L ankle strength to >/= 4/5 in all planes to improve stability with ambulation. Social And Political Studies Professor Goal 4: Patient will be able to hold SLS for 30 seconds without LOB Correction Goal 5: Patient will report 70% improvement in overall symptoms and function. Minutes Tracking: Time In: 1230 Time Out: 1316 Minutes: 46 Timed Code Treatment Minutes: 42 Minutes Makayla Lozoya PTA Date: 12/03/2024 Cosigned by Olivia Nam PT at 12/03/2024 1:41 PM EDT documented in this encounterBon [facility]03-[facility] History of Present illness Narrative* JoseMaxim - 11/29/2024 11:15 AM EST Physical Therapy [facility] Inpatient/Observation/Outpatient Rehabilitation Date: 11/29/2024 Patient Name: Virgil [...] does not require skilled services due to: Therapist/A And P Mechanic will attempt to see this patient, at our earliest opportunity. Maxim Garcia Date: 11/29/2024 Cosigned by Alanna Chappell PTA at 11/29/2024 8:47 AM EST documented in this encounterBon [facility]12[facility] History of Present illness Narrative* Karrie Faith, OT - 09/15/2024 11:25 AM EST [facility] Occupational Therapy Evaluation Date: 09/15/24 Patient Name: Virgil Warner Room: Account: [id number] : 1975 (49 y.o.) Gender: female Discharge [...] Level of Assist for Transfers: Independent Active Speeder Frame Tender: No Patient's Speeder Frame Tender Info: spouse or dtr Mode of Transportation: [...] How much help for eating meals?: None AM-[facility] Inpatient Daily Activity Raw Score: 19 AM-[facility] Inpatient ADL T-Scale Score : 40.22 ADL [...] - 09/15/2024 11:09 AM EST Physical Therapy [facility] Physical Therapy Evaluation Date: 09/15/24 Patient Name: Virgil Warner Room: Account: [id number] : 1975 (49 y.o.) Gender: female Discharge [...] is a 49 y.o. female seen at [facility] for postoperative pain. 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 Inpatient Mobility Raw Score : 18 AM-[facility] Inpatient T-Scale Score : 43.63 Mobility Inpatient [...] blood sugar 280 documented in this encounterBon [facility]12[facility] Discharge instructions* Discharge Instructions* Angely Martínez [...] Agent's Name Healthcare Agent's Phone Number 09/14/24 0421 Yes, patient has an advance directive for healthcare treatment Durable power of industrial engineering professor for health care;Living will Yes, copy in chart -- -- -- Admitting Physician: Meera Mike DPM PCP: Vivian Lemos APRN - [place] Discharging Nurse: [facility]ing [facility] Unit/Room#: 2049/9-01 Discharging Unit Phone Number: Emergency Contact: Extended Emergency Contact Information Primary Emergency Contact: Yoel Warner Address: [address] [place] [phone] Mobile Relation: Spouse Past Surgical History: Past Surgical History: Procedure Laterality Date ANKLE SURGERY Left 07/23/2024 ANKLE EXTERNAL FIXATOR APPLICATION (ORTHOFIX) performed by Meera Mike DPM at [facility] OR BLADDER SUSPENSION CARDIAC CATHETERIZATION Left 12/31/2015 right radial / Dr. Vargas/ No stents COLONOSCOPY N/A 12/08/2022 COLONOSCOPY POLYPECTOMY SNARE/COLD BIOPSY performed by Tari Curtis MD at [facility] OR COLONOSCOPY 12/08/2022 -polyps(hyperplastic)tortuous colon CYSTOSCOPY Left with stent FOOT CLOSED REDUCTION Left 07/23/2024 FOOT CLOSED REDUCTION PINNING performed by Meera Mike DPM at [facility] OR FOOT SURGERY Left 09/14/2024 REMOVE EXTERNAL FIXATOR LEFT FOOT performed by Meera Mike DPM at [facility] OR FOOT SURGERY Left 09/14/2024 SUBTALAR JOINT FUSION FUSION MIDFOOT MULTIPLE JOINTS LEFT FOOT performed by Meera Mike DPMat [facility] OR HYSTERECTOMY (CERVIX STATUS UNKNOWN) KIDNEY [...] Immunization History Administered Date(s) Administered Influenza A (V2M4-67) Vaccine PF IM 08/29/2009 Influenza Virus Vaccine [...] polyneuropathy, with long-term current use of insulin ([facility]) E11.42, Z79.4 Ureteric calculus N20.1 Gross hematuria R31.0 History of kidney stones Z87.442 Renal stones N20.0 Idiopathic acute pancreatitis K85.00 Hypertriglyceridemia E78.1 SIRS without infection with organ dysfunction ([facility]) R65.11 Generalized abdominal pain R10.84 Perirectal abscess K61.1 Tobacco abuse Z72.0 Essential hypertension I10 Dyslipidemia E78.5 Type 2 diabetes mellitus with hyperglycemia ([facility]) E11.65 Multiple joint pain M25.50 Abnormal LFTs [...] 2 diabetes mellitus with Charcot joint arthropathy ([facility]) E11.610 Charcot joint of left foot M14.672 Acquired posterior equinus, left M21.862 Post-op pain G89.18 Diabetes ([facility]) E11.9 Multiple closed fractures of metatarsal bone [...] MENTAL STATUS:} IV Access: { SHAR IV ACCESS:794301506} Nursing Mobility/ADLs: Walking {CHP DME ADLs:680835845} Transfer {CHP DME ADLs:698535849} Bathing {CHP DME ADLs:405595184} Dressing {CHP DME ADLs:858097581} Toileting {CHP DME ADLs:985448596} Feeding {CHP DME ADLs:759777657} Budget Manager {P DME ADLs:997312260} Med Delivery { SHAR MED Delivery:741661096} Wound Care Documentation and Therapy: Incision 09/14/24 Foot Left (Active) Dressing Status Clean;Dry;Intact 09/14/241940 Dressing/Treatment Katlyn wrap 09/14/241940 Incision Assessment Other (Comment) 09/14/241940 Drainage Amount None (dry) 09/14/241940 Odor None 09/14/24 1305 Number of days: 0 Elimination: Continence: Bowel: {YES / NO:} Bladder: {YES / NO:} Urinary Catheter: {Urinary Catheter:672874638} Colostomy/Ileostomy/Ileal Conduit: {YES / NO:} Date of Last BM: Intake/Output Summary (Last 24 hours) at 09/15/2024 0712 Last data filed at 09/14/2024 1315 Gross per 24 hour Intake 1950 ml Output 550 ml Net 1400 ml I/O last 3 completed shifts: In: 1950 [I.V.:1950] Out: 550 [Urine:450; Blood:100] Safety Concerns: { SHAR Safety Concerns:243660311} Impairments/Disabilities: { SHAR Impairments/Disabilities:777962162} Nutrition Therapy: Current Nutrition Therapy: { SHAR Diet List:658933956} Routes of Feeding: {[facility] DME Other Feedings:311085072} Liquids: {Electronic Commerce Specialist liquid thickness:62311} Daily Fluid Restriction: {[facility] DME Yes amt example:140229095} Last Modified Barium Swallow with Video (Video Swallowing Test): {Done Not Done Date:} Treatments at the Time of Hospital Discharge: Respiratory Treatments: Oxygen Therapy: {Therapy; copd oxygen:20981} Ventilator: {[facility] Vent List:157246248} Rehab Therapies: {THERAPEUTIC INTERVENTION:0046899603} Weight Bearing Status/Restrictions: {[facility] Weight Bearin} Other Medical Equipment (for information only, NOT a DME order): {EQUIPMENT:134198220} Other Treatments: Patient's personal belongings (please select all that are sent with patient): {[facility] DME Belongings:578278883} RN SIGNATURE: {Esignature:027690497} CASE MANAGEMENT/SOCIAL WORK SECTION Inpatient Status Date: Readmission Risk Assessment Score: [facility] RISK OF UNPLANNED READMISSION 2.0 0 Total Score Discharging to Facility/ Agency Name: Address: Phone: Fax: Dialysis Facility (if applicable) Name: Address: Dialysis Schedule: Phone: Fax: Block Sorter/Rail Operations Controller signature: {Esignature:924517508} PHYSICIAN SECTION Prognosis: Fair Condition at Discharge: Stable Rehab Potential (if transferring to Rehab): {Prognosis:8272108082} Recommended Labs or Other Treatments After Discharge: [...] that she requires {Admit to AppropriateLevel of Care:35076} for {GREATER/LESS:649270115} 30 days. Update Admission H&P: No change in H&P PHYSICIAN SIGNATURE: Meera Mike DPM * Attachments The following attachments cannot be sent through Care Everywhere. * doxycycline (oral/injection) (Malawian) * hydrocodone (oral) (Malawian) [facility] Discharge instructions* Discharge Instructions* Geno Douglas [...] powder, deodorant, jewelry, piercings, perfume, makeup, nail australian, hair accessories, or hair spray on the day of surgery. Wear loose comfortable clothing. Leave your valuables at home but bring a payment source for any after-surgery prescriptions you plan to fill at [facility]. Bring a storage case for any glasses/contacts. An adult who is responsible for you MUST drive you home and should be with you for the first 24 hours after surgery. If having out-patient knee and foot surgeries, please arrange for planned crutches, walker, or wheelchair before arriving to the hospital. The Day of Surgery: Arrive at [facility] Surgery Entrance at the time directed by your surgeon and check in at the desk. If you have a living will or healthcare power of industrial engineering professor, please bring a copy. You will be taken to the pre-op holding area where you will be prepared for surgery. A physical assessment will be performed by a nurse practitioner or power house engineer. Your IV will be started and you [...] in recovery room. documented in this encounterBon [facility] History of Present illness Narrative* Maxim Giordano [...] Last Encounter 07/26/24 Assessment/Intervention/Outcome Intervention Prayer (assurance of)/Dousman * Aria Del Toro - 07/25/2024 3:24 PM EDT 07/25/24 1523 Encounter Summary Encounter Overview/Reason Volunteer Encounter Service Provided For Patient Last Encounter 07/25/24 Assessment/Intervention/Outcome Intervention Prayer (assurance of)/Dousman * Laurie Coronado PTA - 07/25/2024 11:40 [...] AM-PAC Inpatient Mobility Raw Score : 19 AM-[facility] Inpatient T-Scale Score : 45.44 Mobility Inpatient [...] is a 49 y.o. female seen at [facility] for postoperative abdomen after application of a multiplanar external fixator, percutaneous foot excision tarsal fracture, consider lengthening, no close treatment tarsometatarsal dislocation on 07-15-2024. Patient had injury to left lower e xtremity incidentally after walking where she was seen in [place] ER almost 2 weeks ago. She followed [...] on 07/25/2024 at 3:36 PM Board Certified, [place] [employer] Podiatric Surgery Fellow, [employer] * Patty Romo, OT - 07/24/2024 12:14 PM EDT [facility] Occupational Therapy Evaluation Date: 07/24/24 Patient Name: Virgil Warner Room: Account: [id number] : 1975 (49 y.o.) Gender: female Discharge [...] utilizing knee scooter,) Transfer Assistance: Independent Active Speeder Frame Tender: Yes Mode of Transportation: Car Occupation: Unemployed [...] understanding, Continued education needed Functional Outcome Measures AM-[facility] Daily Activity - Inpatient How much help [...] How much help for eating meals?: None AM-[facility] Inpatient Daily Activity Raw Score: 19 AM-[facility] Inpatient ADL T-Scale Score : 40.22 ADL [...] 07/24/2024 10:39 AM EDT Physical Therapy Facility/Department: [facility] Physical Therapy Initial Assessment Name: Virgil [...] utilizing knee scooter,) Transfer Assistance: Independent Active Speeder Frame Tender: Yes Mode of Transportation: Car Occupation: Unemployed [...] 3-5 steps with a railing?: A Lot [facility] : [facility] T-Scale Score : 42.13 [...] is a 49 y.o. female seen at [facility] for postoperative abdomen after application of a multiplanar external fixator, percutaneous foot excision tarsal fracture, consider lengthening, no close treatment tarsometatarsal dislocation on 07-15-2024. Patient had injury to left lower e xtremity incidentally after walking where she was seen in [place] ER almost 2 weeks ago. She followed [...] on 07/24/2024 at 9:57 AM Board Certified, [place] [employer] Podiatric [employer] Fellow, [employer] * Mecca Ward RN - 07/23/2024 1:20 PM EDT Pre op blood sugar 188 documented in this encounterBon [facility] Hospital course Narrative* Sreekanth Wbeer DPM - 07/26/2024 3:03 PM EDT Images from the original note were not included. Discharge Summary Podiatric Medicine and Surgery Patient Identification Virgil Warner is a 49 y.o. female : 1975 Acct: [id number] Admit date: 07/23/2024 Discharge date and time: [...] weeks with assistive device. Discharge home in [place]. present. Consults: Podiatry, IM, CM, PT OT [...] 5-325 MG per tablet Commonly known as: Hanna Where to Get Your Medications These medications were sent to [id number] - [place], [place] - [address] - P [phone] - F [phone] [place] [address] acetaminophen 500 MG tablet oxyCODONE-acetaminophen 5-325 MG per tablet These medications were sent to [facility] [address] [facility] [address] - P [phone] - F [phone] [address] [id number] albuterol sulfate HFA 108 (90 Base) MCG/ACT [...] patient's inpatient stay. documented in this encounterBon [facility] Discharge instructions* Discharge Instructions* Sreekanth Weber [...] possible, you can also obtain these on [employer] for rather affordable and quickly obtainable. You [...] schedule or confirm your appointment. Call your Plate Maker office if you have any questions or concerns. documented in this encounterBon [facility] Hospital Discharge instructions* Discharge Instructions* Ashanti Harris [...] powder, deodorant, jewelry, piercings, perfume, makeup, nail australian, hair accessories, or hair spray on the day of surgery. Wear loose comfortable clothing. Leave your valuables at home. Bring a storage case for any glasses/contacts. The Day of Surgery: Arrive at [facility] Surgery Entrance at the time directed by your surgeon and check in at the desk. 12:00 pm If you have a living will or healthcare power of industrial engineering professor, please bring a copy. You will be taken to the pre-op holding area where you will be prepared for surgery. A physical assessment will be performed by a nurse practitioner or power house engineer. Your IV will be started and you [...] are in your room. [facility] Discharge instructions* Discharge Instructions* Jesus Singh [...] been evaluated in [facility] at [facility] 07/14/2024 Your recommendations and if necessary prescriptions from today's visit: -Follow-up with podiatry as noted above -Take medication as prescribed -Follow-up with your PCP If you do not have a primary care provider, establish care with a provider that you can begin to regularly follow-up with. Should you have any questions regarding your care or further treatment, please call [facility] Emergency Department at [phone]. PLEASE RETURN TO THE EMERGENCY DEPARTMENT IMMEDIATELY for -Numbness, tingling, weakness, significant pain not controlled at home OR -Changing symptoms -Worsening symptoms -Unable to follow up with your primary care provider -Any other care or concern documented in this encounterR[facility] [place] History of Present illness Narrative* Phu Mora - 04/23/2024 1:15 PM EDT [facility] Outpatient Physical Therapy Daily Note Patient: Virgil Warner : 1975 CSN #: [id number] Referring Physician: No ref. provider found Date: 04/23/2024 Diagnosis: M79.7 fibromyalgia; L shoulder pain, M25.512 Treatment Diagnosis: chronic low back pain; L shoulder pain Onset Date: 12/08/23 PT Insurance Information: [employer] [place] Total # of Visits Approved: 24 Per [...] 15x; L upper trap and scalenes stretch [id number] Exercise 8: Corner pec stretch [id number] Exercise 9: UBE -4/4 Exercise 10: pulleys [...] ROM exercises to improve L shoulder mobility.-progressing Correction Goals Time Frame for Correction Goals : 4 weeks Social And Political Studies Professor Goal 1: Pt will be safe and independent with her HEP Correction Goal 2: Pt will increase lumbar AROM to WFL in order to reduce low back pain Correction Goal 4: Pt will report 25% improvement in symptoms in order to improve quality of life Social And Political Studies Professor Goal 5: Added 03/30: Patient to have improved L shoulder AROM equal to R shoulder ROM all planes with no increase in pain for improved functional mobility. group home goal 6: Added 03/30: Patient to have improved L shoulder strength >/=4/5 grossly all planes for improved stability. Minutes Tracking: Time In: 1315 Time Out: 1417 Minutes: 62 Phu Welsh Date: 04/23/2024 documented in [facility] History of Present illness Narrative* Génesis Hickman, ASSISTANT PRODUCE MANAGER - 04/12/2024 1:00 PM EDT [facility] Outpatient Physical Therapy Daily Note Patient: Virgil Warner : 1975 CSN #: [id number] Referring Physician: No ref. provider found Date: 04/12/2024 Treatment Diagnosis: chronic low back pain; L shoulder pain Onset Date: 12/08/23 PT Insurance Information: [employer] [place] Total # of Visits Approved: 24 Per [...] 15x; L upper trap and scalenes stretch [id number] Exercise 8: Corner pec stretch [id number] Exercise 9: Supine PPT/ Bridge/ supine clam [...] ROM exercises to improve L shoulder mobility.-progressing Correction Goals Time Frame for Social And Political Studies Professor Goals : 4 weeks Social And Political Studies Professor Goal 1: Pt will be safe and independent with her HEP Correction Goal 2: Pt will increase lumbar AROM to WFL in order to reduce low back pain Social And Political Studies Professor Goal 3: Pt will increase BLE strength to >/=4/5 and core strength to Good in order to increase ambulation tolerance Correction Goal 4: Pt will report 25% improvement in symptoms in order to improve quality of life Correction Goal 5: Added 03/30: Patient to have improved L shoulder AROM equal to R shoulder ROM all planes with no increase in pain for improved functional mobility. group home goal 6: Added 03/30: Patient to have improved L shoulder strength >/=4/5 grossly all planes for improved stability. Minutes Tracking: Time In: 1300 Time Out: 1347 Minutes: 47 Génesis Hickman, ASSISTANT PRODUCE MANAGER Date: 04/12/2024 documented in this encounterSENT[facility] History of Present illness Narrative* MattisumayaLary, ASSISTANT PRODUCE MANAGER - 03/01/2024 12:45 PM EDT [facility] Inpatient/Observation/Outpatient Rehabilitation Date: 03/01/2024 Patient Name: Virgil Warner [x] Outpatient : 1975 02/24/24 Plan of Care/Recert ends [x] Pt cancelled due to: [x] Sick/ill Therapist/A And P Mechanic will attempt to see this patient, at our earliest opportunity. Lary Rea, ASSISTANT PRODUCE MANAGER Date: 03/01/2024 documented in this encounterSENT[facility] Hospital Discharge instructions* Discharge Instructions* Vicki Finnegan PA-C - 06/16/2023 8:31 PM EDT Follow-up with your inspector floor sub assembly Dr. Marie for your syncope. Also follow-up with your neurologist for your syncope. Make sure you are drinking plenty of fluids, getting up slowly and cautiously, and being careful of your position with coughing. Testing today is improved. * Attachments The following attachments cannot be sent through Care Everywhere. * Fainting (Malawian) documented in this encounterSENTARA [facility] History of Present illness Narrative* Yuliet Galaviz RN - 06/14/2023 1:22 PM EDT Discharge instructions, follow up appointment and medications reviewed with the patient and spouse and appropriate educational materials and side effects teaching were provided. * Emanuel Danielle MD - 06/14/2023 11:52 AM EDT Physician Progress Note PATIENT: VIRGIL WARNER CSN #: [id number] : 1975 ADMIT DATE: 06/10/2023 8:42 PM [...] you! Chauncey Colunga, BSN,RN, CRCR RN Clinical Associate Professor Of Theatre Options provided: -- Sepsis due to pneumonia [...] 06/14/2023 10:29 AM EDT Physical Therapy Facility/Department: [facility] Daily Treatment Note NAME: Virgil Warner : 1975 Date of Service: 06/14/2023 Discharge Recommendations: Continue to assess pending progress Patient Diagnosis(es): The primary encounter diagnosis was Recurrent syncope. A diagnosis of Pneumonia of both lower lobes due to infectious organism was also pertinent to this visit. Assessment Assessment: PT. able to ambulate [id number] with no AD, SBA for safety with [...] Dobbins RN - 06/13/2023 11:42 PM EDT Financial Dealers at bedside for shift assessment. Patient sitting up in bed, respirations are even and unlabored while on room air. Vitals obtained and assessment completed, see flowsheet for details. Medications given, see MAR for details. Snacks and fresh water provided. pt denies further needs at this time. Call light in reach. * Génesis Hickman PTA - 06/13/2023 12:58 PM EDT Physical Therapy Facility/Department: [facility] Daily Treatment Note NAME: Virgil Warner : 1975 Date of Service: 06/13/2023 Discharge Recommendations: Continue to assess pending progress Patient Diagnosis(es): The primary encounter diagnosis was Recurrent syncope. A diagnosis of Pneumonia of both lower lobes due to infectious organism was also pertinent to this visit. Assessment Assessment: Pt. able to ambulate with no AD, 793afs3,30ftx1 with one noted imbalance, able to self [...] 06/13/2023 11:21 AM EDT Occupational Therapy Facility/Department: [facility] Daily Treatment Note NAME: [...] Minutes 27 AGNES Mathias * Génesis Hickman, ASSISTANT PRODUCE MANAGER - 06/13/2023 10:38 AM EDT Physical Therapy Facility/Department: [facility] Daily Treatment Note NAME: Virgil Warner : 1975 Date of Service: 06/13/2023 Discharge Recommendations: Continue to assess pending progress Patient Diagnosis(es): The primary encounter diagnosis was Recurrent syncope. A diagnosis of Pneumonia of both lower lobes due to infectious organism was also pertinent to this visit. Assessment Assessment: Pt. able to ambulate with no AD, 006prt1,30ftx1 with no nted OB and required one [...] muscle mass loss Fluid Accumulation: Mild Extremities Qc Scientist Strength: Not Performed Nutrition Assessment: Altered nutrition [...] Anthropometric Measures: Height: 5' 6 (167.6 cm) [place] Body Weight (IBW): 130 lbs (59 kg) [...] Used for Energy Requirements: Current Energy (kcal/day): 7208-9872 (15-18) Weight Used for Protein Requirements: [place] Protein (g/day): 71-83 (1.2-1.4) Method Used for [...] this time [address], [place] Contact: [phone] * Shelley Champagne, TELEPHONE STATION REPAIRER - RECEPTIONIST DOCTOR'S OFFICE - 06/13/2023 9:10 AM EDT Progress Note [...] Jardiance, Humulin R Nutrition status: obesity, non-morbid Paper Coating Machine Operator consult initiated Hospital Prophylaxis: DVT: Lovenox Stress Ulcer: H2 Unique Disposition: Shared decision making: All test results, treatment options and disposition options were discussed with the patient today Social determinants of health that may impact management: none Code status: Full Code Disposition: Discharge plan is pending [facility] Advanced Care Planning documentation: [x] [...] the patient's medical record. [DOES NOT SATISFY [facility] PERFORMANCE] Shelley hCampagne APRN - [place]ES , JOSSE, TRAVELING PHLEBOTOMIST-C Hospitalist Medicine 06/13/2023, 9:10 AM Associated attestation - Emanuel Danielle MD - 06/13/2023 5:31 PM EDT Images from the original note were not included. [address] , [place], [place], [address] Attestation Patient: Virgil Warner Date of Admission: 06/10/2023 8:42 PM Hospital Day # 3 Date of Evaluation: 06/13/2023 I personally evaluated and examined the patient [id number] in conjunction with the PA/TRAVELING PHLEBOTOMIST and agree with the management and dispostition of the patient. Please see the PA/TRAVELING PHLEBOTOMIST's note for full details.My lezama findings are: [...] with the plan as outlined in the TRAVELING PHLEBOTOMIST/PA's note Disposition: Discharge plan is pending Please note that this chart was generated using voice recognition DeYapaon dictation software. Although every effort was made to ensure the accuracy of this automated sales agent, some errors in sales agent may have occurred. Emanuel Danielle MD 06/13/2023 [...] Value Date/Time PHART 7.293 07/02/2013 04:20 PM FOT7YTE 36.8 07/02/2013 04:20 PM PO2ART 70.6 07/02/2013 04:20 PM L1DYCUSX 92.6 07/02/2013 04:20 PM FIF2QKI 17.4 07/02/2013 04:20 PM PBEA NOT REPORTED [...] up in the bed watching TV when sql report writer entered the room. Pt is A&O x4. Vitals and assessment as charted. Pt rated her pain a 6 out of 10 in her head. Tramadol 50mg PO given. Pt also requested cough medicine. Pt given Tessalon 100mg PO. Pt denies any further needs at this time. Call light within reach. * CHESTER Mathias - 06/12/2023 9:29 AM EDT Occupational Therapy Facility/Department: [facility] Daily Treatment Note NAME: [...] from the original note were not included. [address] , [place], [place], [address] Progress Note Date: 06/12/2023 Patient name: Virgil [...] tablet by mouth daily 05/16/23 05/15/24 Nathan Ardno MD lisinopril (PRINIVIL;ZESTRIL) 10 MG tablet Take [...] clubbing or edema DIAGNOSTICS: Laboratory Testing: See [facility] EMR for lab data Recent [...] 600 mg 600 mg Oral BID Emanuel Dnaielle MD 600 mg at 09/16/23 2027 benzonatate (TESSALON) capsule 100 mg 100 mg Oral TID PRN Emanuel Danielle MD 100 mg at 06/11/23 1503 cefTRIAXone (ROCEPHIN) 1,000 mg in sodium chloride 0.9 % 50 mL IVPB (mini-bag) 1,000 mg [id number] Emanuel Danielle MD Stopped at 06/12/23 0038 [...] 0-16 Units 0-16 Units SubCUTAneous TID Emanuel Daneille MD 16 Units at 06/11/231654 insulin lispro [...] this chart was generated using voice recognition Location[employer] dictation software. Although every effort was made to ensure the accuracy of this automated sales agent, some errors in sales agent may have occurred. Emanuel Danielle MD 06/12/2023 [...] Pt has 2 insulin pens locked in ibm mainframe systems programmer room. Only using the Humulin 500. Pt stated after being asked where the needles are there is already one on it sql report writer asked you reuse your needles? Pt [...] pearls also given for cough. Told pt sql report writer would update for any changes. * Ivet Rinaldi OT - 06/11/2023 3:05 PM EDT Occupational Therapy Facility/Department: [facility] Occupational Therapy Initial Assessment [...] Ambulation Assistance: Independent Transfer Assistance: Independent Active Speeder Frame Tender: Yes Objective Safety Devices Type of Devices: [...] 06/11/2023 1:16 PM EDT Physical Therapy Facility/Department: [facility] Physical Therapy Initial Assessment [...] 12:45 AM EDT Orthostatic BPs completed by sql report writer at this time as patient was c/o of multiple episodes of syncopeand collapse at home. * Laurence Weathers RN - 06/11/2023 12:32 AM EDT Patient arrived to [facility], room 315, at this time via wheelchair. Patient independently stood and ambulated to bed. Patient is alert and orientated and on 2L of nasal cannula O2. Patient does NOT normally wear O2 at home. Weight was obtained. documented in this encounterB[facility]-2023 NoteCONSULTATION CONSULTATION DATE: 12/30/2022 TO: Dr. [...] our patients to inform us about any hcmn-lun-fsngsmp medications or herbal remedies/nutritional supplements/alternative remedies. 2. [...] treatment options with their primary care provider.[facility] HospitalYnozfuko48-19-2371 History of Present illness Narrative* Makayla Ji [...] of surgery. documented in this encounterBON [facility] [employer] Phone: 1([phone]) [phone] Hospital Discharge instructions* Discharge Instructions* Makayla Ji [...] nearest Emergency Room. documented in this encounterBON [facility] Work Phone: 1(334) 113-755203-07-2023 NoteCONSULTATION CONSULTATION DATE: 11/30/2022 CHIEF COMPLAINT: Includes [...] office after she undergoes the imaging studies.[facility] HospitalTakkbezm99-60-5000 History of Present illness Narrative* Alyson Carlos - 11/23/2022 1:00 PM EST Patient arrived for home sleep study. Instructed on home sleep monitoring device use and benefits. documented in this encounterBON [facility] [employer] Work Phone: 1([phone]) 342-665901-26-2023 NoteCONSULTATION CONSULTATION DATE: 10/21/2022 HISTORY OF PRESENT ILLNESS: This is a 47-year-old female who returns to the clinic status post thoracic RFA bilaterally of T9, T10 and T11, T12. This was completed on 09/14/2022 and has afforded her significant relief. On the 04 of October, patient had her spinal stimulator removed by Dr. Sherman in [place]. Overall, she is feeling increased relief, but [...] be followed up in the clinic thereafter.[facility] HospitalDwhtbxrw26-01-2590 History of Present illness Narrative * Jerilyn Li RN - 10/08/2022 3:30 PM EST Patient instructed on extended melangeur operator indications and use. Diary sent with patient. documented in this encounterBON [facility]GO[facility] Work Phone: 1(205) 245-767001-04-2023 History of Present illness Narrative* Jerilyn Li RN - 09/29/2022 1:00 PM EST Instructed on objectives and procedure of a tilt study documented in this encounterBON [facility] [employer] Work Phone: 1([phone]) 769-837412-13-2022 Evaluation note* Encounter Date Diagnosis Assessment Notes [...] would like to proceed with surgical intervention [employer] Other 12-01-2022 NoteCONSULTATION CONSULTATION DATE: 08/26/2022 HISTORY [...] appointment on 09/07/[address] Sherman in [place] to discuss removal of her nerve stimulator. She is diabetic with the most recent A1c being 7.8 as of yesterday. This is a great improvement for her. Medications include diclofenac 75 mg b.i.d., Requip 4 mg daily, duloxetine, gabapentin, baclofen and Hanna 5/325 b.i.d. The patient is inquiring about returning to tramadol, as she felt she got better pain relief with the tramadol over the Hanna. Current pain at rest today is 4/10; [...] post procedure and agrees to move forward.[facility] 08-06-2022 History of Present illness [...] Nam PT, DPT documented in this encounterBON [facility] [employer] Work Phone: 1([phone]) 669-750111-03-2022 NoteCONSULTATION CONSULTATION DATE: 07/29/2022 HISTORY OF PRESENT [...] have this removed by Dr. Sherman in [place] on 09/07/2022. She was last seen on 04/29/2022 which, at that time, she was just starting physical therapy as prescribed by her tile ditcher. She feels, between ground and the pool [...] followed up in the office post procedure.[facility] HospitalZkukmqrk35-29-4317 History of Present illness Narrative* Mulu Mccray, ASSISTANT PRODUCE MANAGER - 07/19/2022 4:30 PM EDT [facility] Outpatient Physical Therapy Daily Note Patient: Virgil Warner : 1975 CSN #: [id number] Referring Physician: Tyree Hidalgo MD Date: 07/19/2022 Diagnosis: Other LBP, M54.59, pain in unspecified hip, M25.559 Treatment Diagnosis: Decreased activity endurance, trochanteric bursitis, chronic LBP PT Insurance Information: [employer] [place] Total # of Visits Approved: 20 Per [...] exercise to improve endurance for ADLs. -met Social And Political Studies Professor Goals Time Frame for Correction Goals : 4 weeks Social And Political Studies Professor Goal 1: Patient will be independent and compliant with a HEP -met Correction Goal 2: Patient will improve bilateral hip ROM to 90* for ADLs Correction Goal 3: Patient will improve bilateral LE strength to >/= 4/5 for ADLs. Social And Political Studies Professor Goal 4: Patient will improve 5 time sit to stand test time to <30 seconds to indicate improved muscular power Correction Goal 5: The patient will improve ambulation endurance to be able to ambulate >300' before requiring a seated rest break. Minutes Tracking: Time In: 1611 Time Out: 1705 Minutes: 54 Timed Code Treatment Minutes: 51 Minutes Mulu Shazia, ASSISTANT PRODUCE MANAGER [id number] Date: 07/19/2022 documented in this encounterBON [facility] [employer] Phone: [phone]) [phone] History of Present illness Narrative* Olivia Nam PT - 07/16/2022 2:45 PM EDT [facility] Outpatient Physical Therapy Daily Note Patient: Virgil Warner : 1975 CSN #: [id number] Referring Physician: Tyree Hidalgo MD Date: 07/16/2022 Treatment Diagnosis: Decreased activity endurance, trochanteric bursitis, chronic LBP PT Insurance Information: [employer] [place] Total # of Visits Approved: 20 Per [...] exercise to improve endurance for ADLs. -met Correction Goals Time Frame for Social And Political Studies Professor Goals : 4 weeks Social And Political Studies Professor Goal 1: Patient will be independent and compliant with a HEP -met Social And Political Studies Professor Goal 2: Patient will improve bilateral hip ROM to 90* for ADLs Social And Political Studies Professor Goal 3: Patient will improve bilateral LE strength to >/= 4/5 for ADLs. Social And Political Studies Professor Goal 4: Patient will improve 5 time sit to stand test time to <30 seconds to indicate improved muscular power Social And Political Studies Professor Goal 5: The patient will improve ambulation endurance to be able to ambulate >300' before requiring a seated rest break. Minutes Tracking: Time In: 1445 Time Out: 1530 Minutes: 45 Timed Code Treatment Minutes: 43 Minutes Olivia Nam, PT, DPT Date: 07/16/2022 documented in this encounterBON [email or web address] Phone: [phone] 298-339410-17-2022 History of Present illness Narrative* Mulu Mccray, ASSISTANT PRODUCE MANAGER - 07/12/2022 2:15 PM EDT [facility] Outpatient Physical Therapy Daily Note Patient: Virgil Warner : 1975 CSN #: [id number] Referring Physician: Tyree Hidalgo MD Date: 07/12/2022 Treatment Diagnosis: Decreased activity endurance, trochanteric bursitis, chronic LBP PT Insurance Information: [employer] [place] Total # of Visits Approved: 20 Per [...] exercise to improve endurance for ADLs. -met Correction Goals Time Frame for Correction Goals : 4 weeks Correction Goal 1: Patient will be independent and compliant with a HEP -met Social And Political Studies Professor Goal 2: Patient will improve bilateral hip ROM to 90* for ADLs Correction Goal 3: Patient will improve bilateral LE strength to >/= 4/5 for ADLs. Correction Goal 4: Patient will improve 5 time sit to stand test time to <30 seconds to indicate improved muscular power Social And Political Studies Professor Goal 5: The patient will improve ambulation endurance to be able to ambulate >300' before requiring a seated rest break. Minutes Tracking: Time In: 1411 Time Out: 1457 Minutes: 46 Timed Code Treatment Minutes: 44 Minutes [facility] Mulu Mccray, ASSISTANT PRODUCE MANAGER [id number] Date: 07/12/2022 documented in this encounterB[facility] Work Phone: [phone] History of Present illness Narrative* Karrie Beltran PTA - 07/05/2022 3:00 PM EDT [facility] Outpatient Physical Therapy Daily Note Patient: Virgil Warner : 1975 CSN #: [id number] Referring Physician: Tyree Hidalgo MD Date: 07/05/2022 Treatment Diagnosis: Decreased activity endurance, trochanteric bursitis, chronic LBP PT Insurance Information: [employer] [place] Total # of Visits Approved: 20 Per [...] exercise to improve endurance for ADLs. -met Correction Goals Time Frame for Social And Political Studies Professor Goals : 4 weeks Correction Goal 1: Patient will be independent and compliant with a HEP -met Social And Political Studies Professor Goal 2: Patient will improve bilateral hip ROM to 90* for ADLs Correction Goal 3: Patient will improve bilateral LE strength to >/= 4/5 for ADLs. Social And Political Studies Professor Goal 4: Patient will improve 5 time sit to stand test time to <30 seconds to indicate improved muscular power Social And Political Studies Professor Goal 5: The patient will improve ambulation endurance to be able to ambulate >300' before requiring a seated rest break. Minutes Tracking: Time In: 1500 Time Out: 1543 Minutes: 43 Karrie BeltranMILAGROS Date: 07/05/2022 documented in this encounterBON [facility]ENTERKR[facility] [employer] Work Phone: [phone]) 121-287810-07-2022 History of Present illness Narrative* Olivia Nam PT - 07/02/2022 10:00 AM EDT [facility] Outpatient Physical Therapy Daily Note Patient: Virgil Warner : 1975 CSN #: [id number] Referring Physician: Tyree Hidalgo MD Date: 07/02/2022 Treatment Diagnosis: Decreased activity endurance, trochanteric bursitis, chronic LBP PT Insurance Information: [employer] [place] Total # of Visits Approved: 20 Per [...] exercise to improve endurance for ADLs. -met Correction Goals Time Frame for Social And Political Studies Professor Goals : 4 weeks Social And Political Studies Professor Goal 1: Patient will be independent and compliant with a HEP Social And Political Studies Professor Goal 2: Patient will improve bilateral hip ROM to 90* for ADLs Social And Political Studies Professor Goal 3: Patient will improve bilateral LE strength to >/= 4/5 for ADLs. Social And Political Studies Professor Goal 4: Patient will improve 5 time sit to stand test time to <30 seconds to indicate improved muscular power Correction Goal 5: The patient will improve ambulation endurance to be able to ambulate >300' before requiring a seated rest break. Minutes Tracking: Time In: 1000 Time Out: 1045 Minutes: 45 Timed Code Treatment Minutes: 43 Minutes Olivia Nam PT, DPT Date: 07/02/2022 documented in this encounterB[facility] Work Phone: [phone]) 175-219410-03-2022 History of Present illness Narrative* Karrie Beltran, ASSISTANT PRODUCE MANAGER - 06/28/2022 3:00 PM EDT [facility] Outpatient Physical Therapy Daily Note Patient: Virgil Warner : 1975 CSN #: [id number] Referring Physician: Tyree Hidalgo MD Date: 06/28/2022 Treatment Diagnosis: Decreased activity endurance, trochanteric bursitis, chronic LBP PT Insurance Information: [employer] [place] Total # of Visits Approved: 20 Per [...] exercise to improve endurance for ADLs. -met Correction Goals Time Frame for Correction Goals : 4 weeks Correction Goal 1: Patient will be independent and compliant with a HEP Correction Goal 2: Patient will improve bilateral hip ROM to 90* for ADLs Social And Political Studies Professor Goal 3: Patient will improve bilateral LE strength to >/= 4/5 for ADLs. Correction Goal 4: Patient will improve 5 time sit to stand test time to <30 seconds to indicate improved muscular power Correction Goal 5: The patient will improve ambulation endurance to be able to ambulate >300' before requiring a seated rest break. Minutes Tracking: Time In: 1502 Time Out: 1542 Minutes: 40 Karrie Beltran PTA Date: 06/28/2022 documented in this encounterBON [employer] Work Phone: [phone]) 411-705609-23-2022 History of Present illness Narrative* Karrie Beltran, ASSISTANT PRODUCE MANAGER - 06/18/2022 1:30 PM EDT [facility] Outpatient Physical Therapy Daily Note Patient: Virigl Warner : 1975 CSN #: [id number] Referring Physician: Tyree Hidalgo MD Date: 06/18/2022 Treatment Diagnosis: Decreased activity endurance, trochanteric bursitis, chronic LBP PT Insurance Information: [employer] [place] Total # of Visits Approved: 12 Per [...] exercise to improve endurance for ADLs. -met Correction Goals Time Frame for group home goals : 4 weeks group home goal 1: Patient will be independent and compliant with a HEP group home goal 2: Patient will improve bilateral hip ROM to 90* for ADLs termite control technician goal 3: Patient will improve bilateral LE strength to >/= 4/5 for ADLs. group home goal 4: Patient will improve 5 time sit to stand test time to <30 seconds to indicate improved muscular power termite control technician goal 5: The patient will improve ambulation endurance to be able to ambulate >300' before requiring a seated rest break. Minutes Tracking: Time In: 1332 Time Out: 1406 Minutes: 34 Karrie Beltran PTA Date: 06/18/2022 documented in this encounterB[facility] Work Phone: [phone]) 356-207309-19-2022 History of Present illness Narrative* Karrie Beltran PTA - 06/14/2022 3:00 PM EDT [facility] Outpatient Physical Therapy Daily Note Patient: Virgil Warner : 1975 CSN #: [id number] Referring Physician: Tyree Hidalgo MD Date: 06/14/2022 Treatment Diagnosis: Decreased activity endurance, trochanteric bursitis, chronic LBP PT Insurance Information: [employer] [place] Total # of Visits Approved: 12 Per [...] exercise to improve endurance for ADLs. -met Social And Political Studies Professor Goals Time Frame for group home goals : 4 weeks termite control technician goal 1: Patient will be independent and compliant with a HEP termite control technician goal 2: Patient will improve bilateral hip ROM to 90* for ADLs termite control technician goal 3: Patient will improve bilateral LE strength to >/= 4/5 for ADLs. termite control technician goal 4: Patient will improve 5 time sit to stand test time to <30 seconds to indicate improved muscular power group home goal 5: The patient will improve ambulation endurance to be able to ambulate >300' before requiring a seated rest break. Minutes Tracking: Time In: 1515 Time Out: 1545 Minutes: 30 Karrie Beltran PTA Date: 06/14/2022 documented in this encounterBON [facility] [employer] Phone: [phone]) 983-827509-07-2022 History of Present illness Narrative* Cristina Antonio - 06/02/2022 1:45 PM EDT [facility] Inpatient/Observation/Outpatient Rehabilitation Date: 06/02/2022 Patient Name: Virgil Warner [] Inpatient Acute/Observation [] Outpatient : 1975 [] Pt no showed for scheduled appointment [] Pt refused/declined therapy at this time due to: [x] Pt cancelled due to: [] No Reason Given [] Sick/ill [] Other: Has 2 open wounds cx today and tuesday Therapist/A And P Mechanic will attempt to see this patient, at our earliest opportunity. Cristina Antonio Date: 06/02/2022 documented in this encounterBON [facility] [employer] Work Phone: 1([phone]) 999-520208-30-2022 History of Present illness Narrative* Nathan Garcia, PT - 05/25/2022 2:45 PM EDT [facility] Outpatient Physical Therapy Daily Note Patient: Virgil Warner : 1975 CSN #: [id number] Referring Physician: Tyree Hidalgo MD Date: 05/25/2022 [...] aquatic exercise to improve endurance for ADLs. Correction Goals Time Frame for termite control technician goals : 4 weeks termite control technician goal 1: Patient will be independent and compliant with a HEP termite control technician goal 2: Patient will improve bilateral hip ROM to 90* for ADLs termite control technician goal 3: Patient will improve bilateral LE strength to >/= 4/5 for ADLs. termite control technician goal 4: Patient will improve 5 time sit to stand test time to <30 seconds to indicate improved muscular power termite control technician goal 5: The patient will improve ambulation endurance to be able to ambulate >300' before requiring a seated rest break. Minutes Tracking: Time In: 1446 Time Out: 1543 Minutes: 57 Timed Code Treatment Minutes: 54 Minutes Nathan Garcia PT Date: 05/25/2022 documented in this encounterBON [facility] [employer] Phone: 1([phone]) 675-579308-04-2022 NoteCONSULTATION CONSULTATION DATE: 04/29/2022 HISTORY OF PRESENT [...] fatty liver disease. She recently saw her tile ditcher and was prescribed physical therapy. The patient [...] indicated and patient agrees with this plan.[facility] HospitalZcfozdnv70-22-4999 NoteCONSULTATION CONSULTATION DATE: 04/01/2022 This is a [...] is also under the care of her tile ditcher who manager investment her fibromyalgia. She feels very flared up [...] will discontinue the Tramadol, change it to Hanna 5/325 b.i.d. contingent upon the patient bringing [...] be followed up in the office post-procedure. [facility] Signed and Approved by: LESLIE GAMEZ . 04/08/2022 09:47:00[facility]07-07-2022 Note [facility] Vascular Lower Arterial Plethysmography Procedure Patient Name TIMMY Date of Study 03/31/2022 VIRGIL Cooper Date of 1975 Gender Female Age 47 year(s) Race Room Number Corporate ID [id number] # Patient Acct [id number] # MR # [id number] Turnstile Collector Vicki Spicer RVT Interpreting Physician Ruddy Mallory [...] ! !!107 !0.8 ! ! +---------++--------+-----+ ++--------+-----+ +[id number] History of Present illness Narrative* Corrine Guerra RN - 03/03/2021 11:00 AM EDT Patient ordered stress echo test. The patient is unable to walk due to back and leg issues. Talked with ordering physician and changed to Lexiscan nuclear stress test. Patient verbalizes agreement. [facility] this [facility] Phone: [phone]) [phone] History of Present illness Narrative* Yamel Guadarrama [...] recovered for 2 hours. documented [facility] this [facility] Phone: [phone]) [phone] Hospital Discharge instructions* Instructions* Yamel Guadarrama RN [...] your doctor if you can take an cwnx-zos-wqfslwg medicine. If you think your pain medicine [...] Where can you learn more? Go to [email or web address] and sign in to your [employer] account. Enter P586 in the Search Health Information box to learn more about Lumbar Puncture: What to Expect at Home. If you do not have an account, please click on the Sign Up Now link. [employer]. Care instructions adapted under license by [facility]. This care instruction is for use with your licensed healthcare professional. If you have questions about amedical condition or this instruction, always ask your healthcare professional. [employer] disclaims any warranty or liability for your use of this information. Content Version: 11.0.084302; Current as of: November 14, 2015 * Attachments The following attachments cannot be sent through Care Everywhere. * Myelogram (Malawian) documented in this [facility] Work Phone: 1(491) 794-423903-11-2021 NotePatient Outreach (COVAMN) TIMMYVIRGIL Nicole ([id number]) 1975 F Date Time Provider Department 12/04/20 [facility] During your visit today, we recorded the following information about you: Allergies As of Date: 12/04/2020 Noted Allergy Reaction PENICILLINS 06/27/2009 2 - Rash Date Reviewed: 12/28/2019 Reviewed by: Johnathan Milner - Fully Assessed Order(s):SARS-COVID VACCINE 1ST DOSE APPT [[id number]] Order #: [id number] FUTURE Prescriptions as of 12/04/2020 Sig: TIZANIDINE [...] [*12/28/2019 Encounter Status:Closed by FATUMA JUSTICEUSER on 12/08/20[facility] Evaluation note* Diagnosis DDD (degenerative disc disease), lumbar Degeneration of lumbar or lumbosacral intervertebral disc documented in this encounter [employer] Phone: evaluation note* Diagnosis Renal stones Calculus of kidney Renal colic documented in this encounter [employer] Phone: evaluation note* Diagnosis Renal stones Calculus of kidney documented in this encounter [employer] Phone: evaluation note* Diagnosis Hepatomegaly documented in this encounter [employer] Phone: evaluation note* Diagnosis Essential hypertension Unspecified essential hypertension Chest discomfort Other chest pain Hyperlipidemia, unspecified hyperlipidemia type Tobacco abuse Tobacco use disorder documented in this encounter [employer] Phone: evaluation note* Diagnosis Abnormal LFTs Other abnormal blood chemistry documented in this encounter [employer] Phone: evaluation note* Diagnosis Other screening mammogram documented in this encounter [employer] Phone: evaluation note* Diagnosis Right upper quadrant abdominal pain Abdominal pain, right upper quadrant documented in this encounter [employer] Phone: evaluation note* Diagnosis Right upper quadrant abdominal pain Abdominal pain, right upper quadrant documented in this encounter [employer] Phone: evallxudou note* Diagnosis Intermittent claudication (HCC) Peripheral vascular disease, unspecified documented in this encounter [employer] Phone: evallcuant note* Diagnosis Colon cancer screening Special screening for malignant neoplasms, colon Fatty liver Other chronic nonalcoholic liver disease documented in this encounter [employer] Phone: evalsanjmk note* Diagnosis Rib pain on left side- Primary Chest pain, unspecified Screening for colon cancer Special screening for malignant neoplasms, colon documented in this encounter [employer] Phone: evalowyjuo note* Diagnosis Colon cancer screening Special screening for malignant neoplasms, colon Fatty liver Other chronic nonalcoholic liver disease Screening for colon cancer Special screening for malignant neoplasms, colon documented in this encounter [employer] Phone: evalnxvdpd note* Diagnosis Controlled type 2 diabetes mellitus with diabetic polyneuropathy, with long-term current use of insulin (HCC) Screening for colon cancer Special screening for malignant neoplasms, colon documented in this encounter [employer] Phone: evalolclxu noteNo assessment information [facility] Work Phone: Evaluation note* Diagnosis Postural syncope Screening for colon cancer Special screening for malignant neoplasms, colon documented in this encounter [employer] Phone: evalghklpi note* Diagnosis Syncope and collapse Preop cardiovascular exam Pre-operative cardiovascular examination Dizziness Dizziness and giddiness Primary hypertension Unspecified essential hypertension Mixed hyperlipidemia Tobacco abuse counseling Counseling on substance use and abuse Screening for colon cancer Special screening for malignant neoplasms, colon documented in this encounter [employer] Phone: evalezzzdg noteNo InformationNost. joseph [facility] center [employer] Other evaluation note* Diagnosis Lumbar radiculitis Thoracic or lumbosacral neuritis or radiculitis, unspecified Screening for colon cancer Special screening for malignant neoplasms, colon documented in this encounter [employer] Phone: evaluation note* Diagnosis Tired Other malaise and fatigue Fatigue, unspecified type LAYNE (obstructive sleep apnea) Obstructive sleep apnea (adult) (pediatric) Screening for colon cancer Special screening for malignant neoplasms, colon documented in this encounter [employer] Phone: [email or web address] note* Diagnosis Screening for colon cancer Special screening for malignant neoplasms, colon documented in this encounter [employer] Phone: [email or web address] note* Diagnosis Thoracic neuritis Thoracic or lumbosacral neuritis or radiculitis, unspecified documented in this encounter [employer] Phone: evaluation note* Diagnosis LAYNE (obstructive sleep apnea) Obstructive sleep apnea (adult) (pediatric) documented in this encounter [employer] Phone: evaluation note* Diagnosis Acute pneumonia- Primary [...] Syncope and collapse documented in this encounter [facility] [employer] [facility] [email or web address] note* Diagnosis Syncope, unspecified syncope type- Primary documented in this encounter [facility] [employer] note* Diagnosis Lower leg edema Edema documented in this encounter [facility] [email or web address] note* Diagnosis Recurrent pansinusitis documented in this encounter [email or web address] note* Diagnosis Recurrent pansinusitis Recurrent sinusitis Unspecified sinusitis (chronic) documented in this encounter [email or web address] note* Diagnosis Lisfranc dislocation, left, initial encounter- Primary Closed nondisplaced fracture of metatarsal bone of left foot, unspecified metatarsal, initial encounter documented in this encounter [facility] [employer] note* Diagnosis Lisfranc dislocation, left, initial encounter- Primary documented in this encounter [facility] [employer] note* Diagnosis Charcot ankle, left- Primary Closed [...] polyneuropathy, with long-term current use of insulin ([facility]) Tobacco abuse Tobacco use disorder Essential hypertension Unspecified essential hypertension Dyslipidemia Other and unspecified hyperlipidemia Type 2 diabetes mellitus with hyperglycemia ([facility]) Type II or unspecified type diabetes mellitus without mention of complication, not stated as uncontrolled Fatty liver Other chronic nonalcoholic liver disease [facility]* Diagnosis Closed dislocation of tarsal joint of left foot, initial encounter Charcot's joint of foot, left 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) Tobacco abuse Tobacco use disorder Left foot pain Pain in limb [facility] encounter [facility]* Diagnosis Post-op pain- Primary Other acute postoperative pain Charcot ankle, left Diabetes (HCC) Post-op pain Other acute postoperative pain Multiple closed fractures of metatarsal bone of left foot Dislocation of tarsometatarsal joint of left foot Closed dislocation of tarsometatarsal (joint) Charcot's joint of foot, left documented [facility] this [facility]* Diagnosis Spinal stenosis, lumbar region with neurogenic claudication documented [facility] this encounter [facility]* Diagnosis Closed dislocation of tarsal joint of left foot, initial encounter documented in this encounter [facility]* Diagnosis History of syncope Personal history of other specified diseases Essential hypertension Unspecified essential hypertension Tobacco abuse Tobacco use disorder Mixed hyperlipidemia SOB (shortness of breath) Shortness of breath Bilateral leg edema Edema documented in this encounter [facility]* Diagnosis BAILEE (acute kidney injury)- Primary Acute kidney failure, unspecified BAILEE (acute kidney injury) Acute kidney failure, unspecified Lightheaded Dizziness and giddiness Heart murmur Undiagnosed cardiac murmurs Orthostatic hypotension Severe obesity (BMI >= 40) ([facility]) Morbid obesity LAYNE (obstructive sleep apnea) Obstructive sleep apnea (adult) (pediatric) Lightheaded Dizziness and giddiness documented in this encounter [facility]* Diagnosis BAILEE (acute kidney injury) Acute kidney failure, unspecified Decreased renal function Unspecified disorder of kidney and ureter documented in this encounter [facility]Park[facility]* Diagnosis Lightheaded Dizziness and giddiness Dizziness Dizziness and giddiness Elevated CK Other nonspecific abnormal serum enzyme levels History of syncope Personal history of other specified diseases Essential hypertension Unspecified essential hypertension Tobacco abuse Tobacco use disorder Mixed hyperlipidemia SOB (shortness of breath) Shortness of breath documented in this encounter [facility] Pharm[facility]Park[facility] note* Diagnosis Onset Date Resolution Status Admit Date BMI 37.0-37.9, adult acuteSeptember 2024 11:34amOsteoporosisacuteSeptember 2024 11:34am SmokeracuteSeptember 2024 11:34am [facility] Work Phone: Evaluation note* Diagnosis Kidney stone- Primary Calculus of kidney Chronic nasal congestion Other diseases of nasal cavity and sinuses Chronic allergic rhinitis Allergic rhinitis, cause unspecified Chronic sinus complaints Other symptoms involving respiratory system and chest Kidney stone Calculus of kidney documented in this encounter [facility]Park[facility]* Diagnosis Kidney stone- Primary Calculus of kidney documented in this encounter [facility]Park[facility] note* Diagnosis Acute pain of right shoulder documented in this encounter [facility]* Diagnosis Acute pain of left shoulder documented in this encounter [facility] general Narrative - Reported* Type Description Date Medical History Hypertension Medical Historytype II diabetesMedical HistoryPMDDMedical Historyhyperlipidemia Surgical History(R) shoulder surgerySurgical HistoryhysterectomySurgical History bladder surgerySurgical HistoryPelvic ReconstructionHospitalization HistorySee Above Internal Gaming Other Hospital Discharge instructions* Attachments The following attachments cannot be sent through Care Everywhere. * Chest Pain: Musculoskeletal (Mal[place]ian) [facility] [employer] Work Phone: Hospital Discharge instructions* Attachments The following attachments cannot be sent through Care Everywhere. 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 Physical Therapy [address] [place] [address] Phone: tel: Referral IDStatusReasonStart DateExpiration DateVisits RequestedVisits [id number] Specialty Services Required / [facility] for visit Narrative* Imaging (Routine) - Closed SpecialtyDiagnoses / ProceduresReferred By ContactReferred To ContactRadiology Diagnoses Spinal stenosis, lumbar region with neurogenic claudication Procedures MRI LUMBAR SPINE WO Suzi Vigil, JOSSE - RECEPTIONIST DOCTOR'S OFFICE [address] [facility] [address] [place] [address] Phone: tel: fax: Referral IDStatusReasonStart DateExpiration DateVisits RequestedVisits [id number]/11/20257/3/202611 [facility] for visit Narrative* Imaging (Routine) - Pending ReviewSpecialtyDiagnoses / ProceduresReferred By ContactReferred To Contact Radiology Diagnoses Closed dislocation of tarsal joint of left foot, initial encounter Procedures DEXA BONE DENSITY AXIAL SKELETON Meera Mike DPM [address] [facility] [address] [place] [address] Phone: tel: fax: Referral IDStatusReasonStart DateExpiration DateVisits RequestedVisits [id number] Review [facility] for visit Narrative* Physical Therapy (Routine) - AuthorizedSpecialtyDiagnoses / ProceduresReferred By ContactReferred To ContactPhysical Therapy Diagnoses Labyrinthine vertigo, bilateral Might, Vivian W, TELEPHONE STATION REPAIRER - RECEPTIONIST DOCTOR'S OFFICE [address] [place] [address] Phone: tel: fax: [facility] Physical Therapy [address] [place] [address] Phone: tel: Referral IDStatusReasonLeeds DateExpiration DateVisits RequestedVisits [id number] Specialty Services Required [facility] for visit Narrative* Imaging (Routine) - Open SpecialtyDiagnoses / ProceduresReferred By ContactReferred To ContactRadiology Diagnoses Lightheaded Dizziness Elevated CK History of syncope Essential hypertension Tobacco abuse Mixed hyperlipidemia SOB (shortness of breath) Procedures CTA ABDOMEN W WO CONTRAST CTA ABDOMEN PELVIS W CONTRAST CT ABDOMEN W CONTRAST Nathan Ardon MD [address] [place] [address] Phone: tel: fax: Referral IDStatusReasonLeeds DateExpiration DateVisits RequestedVisits [id number]/12/20259/9/202611 [facility] for visit Narrative* Imaging (Routine) - Closed SpecialtyDiagnoses / ProceduresReferred By ContactReferred To ContactRadiology Diagnoses Chronic nasal congestion Chronic allergic rhinitis Chronic sinus complaints Procedures CT SINUS WO CONTRAST Karri Moreno PA-C [address] [place] [address] Phone: tel: fax: Referral IDStatusReasonStbruno DateExpiration DateVisits RequestedVisits [id number]/15/202510/ [facility] HospitalReason for visit Narrative* Auth/CertSpecialtyDiagnoses / ProceduresReferred By ContactReferred To Contact Diagnoses Kidney stone Procedures [place] LITHOTRIPSY XTRCORP SHOCK WAVE EXTRACORPOREAL SHOCK WAVE LITHOTRIPSY [place] Everett MD [address] [facility], [address] [place] [address] Phone: tel: fax: [facility] [address] [place] [address] Referral IDStatusReasonStbruno DateExpiration DateVisits RequestedVisits [id number] [facility] for visit Narrative* Imaging (Routine) - Closed SpecialtyDiagnoses / ProceduresReferred By ContactReferred To ContactRadiology Diagnoses Acute pain of right shoulder Procedures MRI SHOULDER RIGHT WO CONTRAST Sharon Dominique MD [address] [place] [address] Phone: tel: fax: Referral IDStatusReasonStbruno DateExpiration DateVisits RequestedVisits [id number]/22/202510/16/202611 [facility] for visit Narrative* Imaging (Routine) - Closed SpecialtyDiagnoses / ProceduresReferred By ContactReferred To ContactRadiology Diagnoses Acute pain of left shoulder Procedures MRI SHOULDER LEFT WO CONTRAST Sharon Dominique MD [address] [place] [address] Phone: tel: fax: Referral IDStatusReasonStbruno DateExpiration DateVisits RequestedVisits [id number]/22/202510/14/202611 [facility] Assessments Diagnosis Diabetes mellitus type 2 with [...] Living Will09/24/2013 3:29 PMPower of AttorneyPower of Gpdslsjv05/30/2013 3:29 PMCode StatusDate ActivatedDate InactivatedComments Full Code12/21/2017 5:28 AM12/23/2017 6:35 PMFull Code04/28/2016 7:55 PM04/29/2016 5:42 PMFull Code04/27/2016 8:29 AM04/27/2016 1:04 PMFull Code12/31/2015 1:59 PM 04/27/2016 8:29 AMFull Code12/31/2015 11:18 AM12/31/2015 1:59 PMTypeDate Recorded Patient RepresentativeExplanationAdvance Directives and Living WillAdvance Directives and Living Will09/24/2013 3:29 PMPower of AttorneyPower of Yarn Dry Room Worker 09/24/2013 3:29 PMCode StatusDate ActivatedDate InactivatedCommentsFull Code 12/21/2017 5:28 AM12/23/2017 6:35 PMFull Code04/28/2016 7:55 PM04/29/2016 5:42 PMFull Code04/27/2016 8:29 AM04/27/2016 1:04 PMFull Code12/31/2015 1:59 PM04/27/2016 8:29 AM Full Code12/31/2015 11:18 AM12/31/2015 1:59 PMTypeDate RecordedPatient RepresentativeExplanationACP-Advance DirectiveACP-Advance Bkirokkha23/30/2013 3:29 PMACP-Power of AttorneyACP-Power of Uoscnlah44/30/2013 3:29 PMTypeDate RecordedPatient RepresentativeExplanationACP-Advance DirectiveACP-Advance Eobdzfspe80/30/2013 3:29 PMACP-Power of AttorneyACP-Power of Xrrugbmo58/30/2013 3:29 PMTypeDate RecordedPatient RepresentativeExplanationACP-Advance Directive ACP-Power of AttorneyACP-Advance Blrtbenpp27/30/2013 3:29 PMACP-Power of Klhbrslp93/30/2013 3:29 PMNameRelationshipHealthcare Agent Relationship CommunicationScott KeeSpbeth david hospitalPrimary Decision Maker* * * TypeDate RecordedPatient RepresentativeExplanationACP-Advance DirectiveACP-Power of AttorneyACP-Advance Wgcbrqkzp96/30/2013 3:29 PMACP-Power of Yarn Dry Room Worker 09/24/2013 3:29 PMNameRelationshipHealthcare Agent RelationshipCommunication Yoel KeeSpbeth david hospitalPrimary Decision Maker* * * NameRelationshipHealthcare Agent RelationshipCommunicationScott KeefeSpouse Primary Decision Maker* * * NameRelationshipHealthcare Agent RelationshipCommunicationScott KeefeSpouse Primary Decision Maker* * * NameRelationshipHealthcare Agent RelationshipCommunicationScott KeefeSpouse Primary Decision Maker* * * TypeDate RecordedPatient RepresentativeExplanationACP-Power of AttorneyACP- Advance Izaadlkmb05/30/2013 3:29 PMACP-Power of Zktwojff27/30/2013 3:29 PMName RelationshipHealthcare Agent RelationshipCommunicationScott KeeSpbeth david hospitalPrimary Decision Maker* * * TypeDate RecordedPatient RepresentativeExplanationACP-Power of AttorneyACP- Advance Utpofwfwh19/30/2013 3:29 PMACP-Power of Lhzluqqz49/30/2013 3:29 PMName RelationshipHealthcare Agent RelationshipCommunicationScott KeefeSpousePrimary Decision Maker* * * NameRelationshipHealthcare Agent RelationshipCommunicationScott KeefeSpouse Primary Decision Maker* * * TypeDate RecordedPatient RepresentativeExplanationACP-Advance Directive 09/24/2013 3:29 PMACP-Power of Jjexlguq09/30/2013 3:29 PMNameRelationship Healthcare Agent RelationshipCommunicationScott KeefeSpousePrimary Decision [...] RecordedPatient RepresentativeExplanationACP-Advance Directive 09/24/2013 3:29 PMACP-Power of Ighvjaot37/30/2013 3:29 PMNameRelationship Healthcare Agent RelationshipCommunicationScott KeefeSpousePrimary Decision Maker* * * NameRelationshipHealthcare Agent RelationshipCommunicationScott KeefeSpouse Primary Decision Maker* * * Advance Directive Response Recorded Date/ Time Advance Directives No December 08, 021 2:41pm NameRelationshipHealthcare Agent RelationshipCommunicationScott efeSpbeth david hospital Primary Decision Maker* * * NameRelationshipHealthcare Agent RelationshipCommunicationScott [facility] Primary Decision Maker* * * NameRelationshipHealthcare Agent RelationshipCommunicationScott [facility] hospital Primary Decision Maker* * * NameRelationshipHealthcare Agent RelationshipCommunicationScott [facility]Sp[facility] hospital Primary Decision Maker* * * NameRelationshipHealthcare Agent RelationshipCommunicationScott [facility] Primary Decision Maker* * * Code StatusDate [...] RecordedPatient RepresentativeExplanationACP-Advance Directive 09/24/2013 3:29 PMACP-Power of Wqezgioh45/30/2013 3:29 PMACP-Advance Directive 06/13/2023 12:08 PMHealth Care [...] Decision Maker* * * NameRelationshipHealthcare Agent RelationshipCommunicationScott [facility] Primary Decision Maker* * * NameRelationshipHealthcare Agent RelationshipCommunicationScott [facility] Primary Decision Maker* * * Date ActivatedDate InactivatedComments06/11/2023 12:44 AM06/14/2023 3:29 PMDate ActivatedDate InactivatedComments12/21/2017 5:28 AM12/23/2017 6:35 PMDate ActivatedDate InactivatedComments04/28/2016 7:55 PM04/29/2016 5:42 PMDate Activated Date InactivatedComments04/27/2016 8:29 AM04/27/2016 1:04 PMDate ActivatedDate InactivatedComments12/31/2015 1:59 PM04/27/2016 8:29 AMNameRelationshipHealthcare Agent RelationshipCommunicationScott [facility] CenterPrimary Decision Maker* * * NameRelationshipHealthcare Agent RelationshipCommunicationScott [facility] Primary Decision Maker* * * NameRelationshipHealthcare Agent RelationshipCommunicationScott [facility] Primary Decision Maker* * * TypeDate RecordedPatient RepresentativeExplanationACP-Advance Directive 09/24/2013 3:29 PMACP-Power of Bhzvbjfo91/30/2013 3:29 PMACP-Advance Directive 06/13/2023 12:08 PMHealth Care Power of AttorneyDate ActivatedDate Inactivated Comments06/11/2023 12:44 AM06/14/2023 3:29 PMDate ActivatedDate Inactivated Comments12/21/2017 5:28 AM12/23/2017 6:35 PMDate ActivatedDate InactivatedComments 04/28/2016 7:55 PM04/29/2016 5:42 PMDate ActivatedDate InactivatedComments04/27/2016 8:29 AM04/27/2016 1:04 PMDate ActivatedDate InactivatedComments12/31/2015 1:59 PM 04/27/2016 8:29 AMNameRelationshipHealthcare Agent RelationshipCommunicationScott [facility] CenterPrimary Decision Maker* * * NameRelationshipHealthcare Agent RelationshipCommunicationScott [facility] Primary Decision Maker* * * NameRelationshipHealthcare Agent RelationshipCommunicationScott [facility] Primary Decision Maker* * * NameRelationshipHealthcare Agent RelationshipCommunicationScott [facility] Primary Decision Maker* * * Date ActivatedDate JhpvokjkngyItpyekcp85/28/2024 6:49 PMDate ActivatedDate InactivatedComments06/11/2023 12:44 AM06/14/2023 3:29 PMDate ActivatedDate InactivatedComments12/21/2017 5:28 AM12/23/2017 6:35 PMDate ActivatedDate InactivatedComments04/28/2016 7:55 PM04/29/2016 5:42 PMDate ActivatedDate InactivatedComments04/27/2016 8:29 AM04/27/2016 1:04 PMNameRelationshipHealthcare Agent RelationshipCommunicationScott [facility] CenterPrimary Decision Maker* * * Date ActivatedDate YmhxbkodbadHqkwgkfu62/28/2024 6:49 PM10 7:33 PMName RelationshipHealthcare Agent RelationshipGrand [facility] Decision Maker* * * Date ActivatedDate EkbsphkruofFsnxsveg97/28/2024 6:49 PM10 7:33 PMDate ActivatedDate InactivatedComments06/11/2023 12:44 AM06/14/2023 3:29 PMDate ActivatedDate InactivatedComments12/21/2017 5:28 AM12/23/2017 6:35 PMDate ActivatedDate InactivatedComments04/28/2016 7:55 PM04/29/2016 5:42 PMDate Activated Date InactivatedComments04/27/2016 8:29 AM04/27/2016 1:04 PMNameRelationship Healthcare Agent Relationship[facility] Decision Maker* * * Date ActivatedDate QrqxmynqxvhAhtyogna29/20/2024 1:39 PMDate ActivatedDate WrjmcshujgmRuzvxvwp81/20/2024 11:28 AM09/14/2024 1:39 PMDate ActivatedDate IfnkrevbvcvGparpycp44/28/2024 6:49 PM10 7:33 PMDate ActivatedDate InactivatedComments06/11/2023 12:44 AM06/14/2023 3:29 PMDate ActivatedDate InactivatedComments12/21/2017 5:28 AM12/23/2017 6:35 PMNameRelationshipHealthcare Agent Relationship[facility] Decision Maker* * * Date ActivatedDate ZpxxkdketavRjbilmdl88/20/2024 1:39 PM09/15/2024 7:56 PMDate ActivatedDate XoancoqkbkoZllkmtjv89/20/2024 11:28 AM09/14/2024 1:39 PMDate ActivatedDate PtyzkgjveesEwisfpkk89/28/2024 6:49 PM10 7:33 PMDate ActivatedDate InactivatedComments06/11/2023 12:44 [...] Primary Decision Maker* * * Date ActivatedDate NomuhvfvvouYksqwsuo84/20/2024 1:39 PM09/15/2024 7:56 PMName RelationshipHealthcare Agent RelationshipCommunicationScott KeefeSpousePrimary Decision Maker* * * NameRelationshipHealthcare Agent RelationshipCommunicationScott KeefeSpouse Primary Decision Maker* * * NameRelationshipHealthcare Agent RelationshipCommunicationScott KeefeSpouse Primary Decision Maker* * * NameRelationshipHealthcare Agent RelationshipCommunicationScott KeefeSpouse Primary Decision Maker* * * NameRelationshipHealthcare Agent RelationshipCommunicationScott KeefeSpouse Primary Decision Maker* * * NameRelationshipHealthcare Agent RelationshipCommunicationScott KeefeSpbeth david hospital Primary Decision Maker* * * NameRelationshipHealthcare Agent RelationshipCommunicationScott KeeSpbeth david hospital Primary Decision Maker* * * NameRelationshipHealthcare Agent RelationshipCommunicationScott KeefeSpbeth david hospital Primary Decision Maker* * * Date ActivatedDate InactivatedComments05/30/2025 4:57 AMDate ActivatedDate ZapnpkqvykzBtdinvkk33/20/2024 1:39 PM09/15/2024 7:56 PMDate ActivatedDate YpfwzuvdamlXwzxgqie02/20/2024 11:28 AM09/14/2024 1:39 PMDate ActivatedDate ZyygpxifsclXkhrgejt75/28/2024 6:49 PM10 7:33 PMDate ActivatedDate InactivatedComments06/11/2023 12:44 AM06/14/2023 3:29 PMNameRelationshipHealthcare Agent RelationshipCommunicationScott KeefeSpousePrimary Decision Maker* * * Iliana KecklerChildSecondary Decision Maker* Date ActivatedDate InactivatedComments05/30/2025 4:57 AM05/31/2025 3:25 PMName RelationshipHealthcare Agent RelationshipCommunicationScott KeefeSpousePrimary Decision Maker* * * Iliana KalicklerChildSecondary Decision Maker* NameRelationshipHealthcare Agent RelationshipCommunicationScott KeefeSpouse Primary Decision Maker* * * Iliana KalicklerChildSecondary Decision Maker* Date ActivatedDate InactivatedComments05/30/2025 4:57 AM9 3:25 PMDate ActivatedDate QkoavxmepqlMhpdffze79/20/2024 1:39 PM09/15/2024 7:56 PMDate ActivatedDate GzjdjdfzmpuQnhtrdat44/20/2024 11:28 AM09/14/2024 1:39 PMDate ActivatedDate HkbkbywdjfpOkjrvuqr29/28/2024 6:49 PM10 7:33 PMDate ActivatedDate InactivatedComments06/11/2023 12:44 [...] * Iliana GreenChildSecondary Decision Maker* Date ActivatedDate GvsbzgrjbkkHbqzfhfy82/28/2025 6:31 AMDate ActivatedDate InactivatedComments05/30/2025 4:57 AM05/31/2025 3:25 PMDate ActivatedDate LwtfmmuyoavDjdexapc40/20/2024 1:39 PM09/15/2024 7:56 PMDate ActivatedDate UjvchjsyzgtQyzvqzrc22/20/2024 11:28 AM09/14/2024 1:39 PMDate ActivatedDate JdudmniavdwDcuwxbgj20/28/2024 6:49 PM10 7:33 PMNameRelationship Healthcare Agent RelationshipCommunicationScoKindred HospitalPrimary Decision Maker* * * Iliana GreenChildSecondary Decision Maker* Date ActivatedDate SmgylqaxyqqRkfrkqul38/28/2025 6:31 AM07/23/2025 11:42 AMDate ActivatedDate InactivatedComments05/30/2025 4:57 AM05/31/2025 3:25 PMDate Activated Date XkgqlutetnyOddwqeuv23/20/2024 1:39 PM09/15/2024 7:56 PMDate ActivatedDate XzbtxjzotroAjrrcyab70/20/2024 11:28 AM09/14/2024 1:39 PMDate ActivatedDate HayyeofmcwkDpyjdnor87/28/2024 6:49 PM10 7:33 PMDate ActivatedDate AmpdmbwguuoYsfrtslv58/28/2025 6:31 AM07/23/2025 11:42 AMNameRelationship Healthcare Agent RelationshipCommunicationSco KaliSt. Joseph Medical CenterPrimary Decision Maker* * * Iliana GreenChildSecondary Decision Maker* NameRelationshipHealthcare Agent RelationshipCommunicationScoKindred Hospital Primary Decision Maker* * * Il[facility] GreenZia Health ClinicSecondary Decision Maker* Reason for Referral StatusReasonSpecialtyDiagnoses / ProceduresReferred By ContactReferred To ContactOpenRadiology Diagnoses Abdominal pain, unspecified abdominal location Procedures CT ABDOMEN PELVIS W IV CONTRAST Additional Contrast? Oral Curtis Jean MD [address] [place] [address] StatusReasonSpecialtyDiagnoses / ProceduresReferred By ContactReferred To ContactAuthorizedRadiology Diagnoses Generalized abdominal pain Procedures NM GASTRIC EMPTYING HC NM GASTRIC EMPTYING STUDY Curtis Jean MD [address] [place] [id number] [place], [place] StatusReasonSpecialtyDiagnoses / ProceduresReferred By ContactReferred To ContactOpenRadiology Diagnoses Generalized abdominal pain Procedures NM GASTRIC EMPTYING Vivian Lemos, TELEPHONE STATION REPAIRER - RECEPTIONIST DOCTOR'S OFFICE [address] [place] [address] StatusReasonSpecialtyDiagnoses / ProceduresReferred By ContactReferred To ContactClosedRadiology Diagnoses Traumatic injury of head, initial encounter Scalp tenderness S09.90XA (ICD-10-CM) - Traumatic injury of head, initial encounter R51.9 (ICD-10-CM) - Scalp tenderness Procedures CT HEAD WO CONTRAST Vivian Lemos, TELEPHONE STATION REPAIRER - RECEPTIONIST DOCTOR'S OFFICE [address] [place] [address] StatusReasonSpecialtyDiagnoses / ProceduresReferred By ContactReferred To ContactAuthorizedCardiology Diagnoses Essential hypertension Chest discomfort Hyperlipidemia, unspecified hyperlipidemia type Tobacco abuse Procedures Echo stress test HC NM SEST. REST STRESS MULT Nathan Ardon MD [address] [place] [address] [place] [address] StatusReasonSpecialtyDiagnoses / ProceduresReferred By ContactReferred To ContactClosedRadiology Diagnoses Other screening mammogram Procedures ALEJANDRO MARISOL DIGITAL SCREEN BILATERAL Vivian Lemos TELEPHONE STATION REPAIRER - RECEPTIONIST DOCTOR'S OFFICE [address] [place] [address] StatusReasonSpecialtyDiagnoses / ProceduresReferred By ContactReferred To ContactNot Required - RecondoRadiology Diagnoses Right upper quadrant abdominal pain Procedures US GALLBLADDER RUQ HC US ABDOMINAL LIMITED Flip Dodson APRN - RECEPTIONIST DOCTOR'S OFFICE [address] [place] [address] SpecialtyDiagnoses / ProceduresReferred By ContactReferred To ContactRadiology Diagnoses Intermittent claudication (HCC) Procedures VL LOWER EXTREMITY ARTERIAL SEGMENTAL PRESSURES W PPG Vivian Lemos TELEPHONE STATION REPAIRER - RECEPTIONIST DOCTOR'S OFFICE [address] [place] [address] Referral IDStatusReasonStart DateExpiration DateVisits RequestedVisits [id number]/29/20226/[id number] / Procedures Referred By ContactReferred To ContactRadiology Diagnoses Colon cancer screening Fatty liver Procedures LIVER Tair Curtis MD [address] [place] [address] Referral IDStatusReasonStart DateExpiration DateVisits RequestedVisits [id number]/31/202210/[id number] / Procedures Referred By ContactReferred To Contact Diagnoses Postural syncope R55 (ICD-10-CM) - Postural syncope Procedures Tilt Table Test Tilt Table Test [place] CARDIOVASCULAR FUNCTION EVAL W/TILT TABLE W/MNTR [address]1694 - [place] CARDIOVASCULAR FUNCTION EVAL W/TILT TABLE W/MNTR Vivian Lemos TELEPHONE STATION REPAIRER - RECEPTIONIST DOCTOR'S OFFICE [address] [place] [address] Referral IDStatusReasonLeeds DateExpiration DateVisits RequestedVisits [id number]/29/202212/[id number] / Procedures Referred By ContactReferred To Contact Diagnoses Syncope and collapse Preop cardiovascular exam Dizziness Primary hypertension Mixed hyperlipidemia Tobacco abuse counseling Procedures Continuous cardiac monitoring, >2 up to 14 days Nathan Ardon MD [address] [place] [address] [place] [address] Ref[facility] [place] DateExpiration DateVisits RequestedVisits [id number] Review/[id number] / ProceduresReferred By ContactReferred To ContactRadiology Diagnoses Lumbar radiculitis Procedures MRI LUMBAR SPINE WO CONTRAST Leslie Gamez, TELEPHONE STATION REPAIRER - TRAVELING PHLEBOTOMIST [address] [place] [address] Referral [facility]StatK[facility] DateExpiration DateVisits RequestedVisits [id number]/30/20233/[id number] / Procedures Referred By ContactReferred To [facility] Diagnoses Tired Fatigue, unspecified type LAYNE (obstructive sleep apnea) Procedures Home sleep study Nathan Ardon MD [address] [place] [address] [place] [address] Referral IDStatKettering Health [facility] DateExpiration DateVisits RequestedVisits [id number]/14/20232/[id number] / Procedures Referred By ContactReferred To ContactRadiology Diagnoses Thoracic neuritis M54.14 (ICD-10-CM) - Thoracic neuritis Procedures MRI THORACIC SPINE WO CONTRAST CHG MRI SPINAL CANAL THORACIC W/O CONTRAST MATRL 57497 - CHG MRI SPINAL CANAL THORACIC W/O CONTRAST MATRL Terry Brady MD [address], [address] [address] Referral IDStatusReasonStart DateExpiration DateVisits RequestedVisits [id number]/[id number] / Procedures Referred By ContactReferred To [facility] Diagnoses LAYNE (obstructive sleep apnea) Procedures Sleep study with PAP titration Nathan Ardon MD [address] [place] [address] [place] [address] Referral IDStatusReasonStart DateExpiration DateVisits RequestedVisits [id number]/9/20234/[id number] / Procedures Referred By ContactReferred To ContactRadiology Diagnoses Recurrent sinusitis Procedures CT SINUS WO CONTRAST Vivian Lemos, TELEPHONE STATION REPAIRER - RECEPTIONIST DOCTOR'S OFFICE [address] [place] [address] Referral IDStatusReasonStart DateExpiration DateVisits RequestedVisits [id number]/7/202411/[id number] / Procedures Referred By ContactReferred To ContactRadiology Diagnoses Recurrent pansinusitis Procedures CT SINUS W CONTRAST Vivian Lemos, TELEPHONE STATION REPAIRER - RECEPTIONIST DOCTOR'S OFFICE [address] [place] [address] Referral IDStatusReasonStart DateExpiration DateVisits RequestedVisits [id number]/1/20249/[id number] / Procedures Referred By ContactReferred To ContactRadiology Diagnoses Closed dislocation of tarsal joint of left foot, initial encounter Charcot's joint of foot, left 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) Tobacco abuse Left foot pain Procedures CT FOOT LEFT WO CONTRAST Meera Mike DPM [address] [place] [address] Referral IDStatusReasonStart DateExpiration DateVisits RequestedVisits [id number]/5/20241/ Summary Purpose Family History No Family History [...] CT ABD/PEL W CONT Curtis Jean MD [address] [place] [address] [facility] Ct Scan [address] [place] [address] StatusReasonSpecialtyDiagnoses / ProceduresReferred By ContactReferred To ContactOpenRadiology Diagnoses Thyromegaly Procedures US HEAD NECK SOFT TISSUE THYROID US THYROID [facility] US,HEAD/NECK TISSUES,B-SCAN/REAL TIME Hever Olivera PA [address] [place] [address] StatusReasonSpecialtyDiagnoses / ProceduresReferred By ContactReferred To ContactAuthorizedRadiology Diagnoses Functional dyspepsia Procedures [facility] GASTRIC EMPTYING STUDY Curtis Jean MD [address] [facility] [place] [address] StatusReasonSpecialtyDiagnoses / ProceduresReferred By ContactReferred To ContactClosedRadiology Diagnoses Generalized abdominal pain Procedures NM GASTRIC EMPTYING HC NM GASTRIC EMPTYING STUDY Curtis Jean MD [address] [place] [address] [place] StatusReasonSpecialtyDiagnoses / ProceduresReferred By ContactReferred To ContactClosedRadiology Diagnoses Traumatic injury of head, initial encounter Scalp tenderness S09.90XA (ICD-10-CM) - Traumatic injury of head, initial encounter R51.9 (ICD-10-CM) - Scalp tenderness Procedures CT HEAD WO CONTRAST Vivian Lemos W, TELEPHONE STATION REPAIRER - RECEPTIONIST DOCTOR'S OFFICE [address] [place] [address] StatusReasonSpecialtyDiagnoses / ProceduresReferred By ContactReferred To ContactClosedRadiology Diagnoses DDD (degenerative disc disease), lumbar Procedures CT LUMBAR SPINE W CONTRAST FL MYELOGRAM LUMBOSACRAL S&I IR MYELOGRAM LUMBOSACRAL IR MYELOGRAM LUMBOSACRAL Jasper Cleveland MD [facility] [address] [place] [address] StatusReasonSpecialtyDiagnoses / ProceduresReferred By ContactReferred To ContactAuthorizedCardiology Diagnoses Essential hypertension Chest discomfort Hyperlipidemia, unspecified hyperlipidemia type Tobacco abuse Procedures Echo stress test HC NM SEST. REST STRESS MULT Nathan Ardon MD [address] [place] [address] [place] [address] StatusReasonSpecialtyDiagnoses / ProceduresReferred By ContactReferred To ContactPending ReviewStress Lab Diagnoses Essential (primary) hypertension Other chest pain Hyperlipidemia, unspecified Tobacco use Procedures CHG MYOCARDIAL SPECT MULTIPLE STUDIES Nathan Ardon MD [address] [place] [address] [place] [address] [facility] Stress Lab [address] [place] [address] StatusReasonSpecialtyDiagnoses / ProceduresReferred By ContactReferred To ContactClosedRadiology Diagnoses Other screening mammogram Procedures ALEJANDRO MARISOL DIGITAL SCREEN BILATERAL Vivian Lemos APRN - RECEPTIONIST DOCTOR'S OFFICE [address] [place] [address] StatusReasonSpecialtyDiagnoses / ProceduresReferred By ContactReferred To ContactNot Required - RecondoRadiology Diagnoses Right upper quadrant abdominal pain Procedures US GALLBLADDER RUQ HC US ABDOMINAL LIMITED Flip Dodson APRN - CNP [address] [place] [address] SpecialtyDiagnoses / ProceduresReferred By ContactReferred To ContactRadiology Diagnoses Intermittent claudication (HCC) Procedures VL LOWER EXTREMITY ARTERIAL SEGMENTAL PRESSURES W PPG Vivian Lemos APRN - RECEPTIONIST DOCTOR'S OFFICE [address] [place] [address] Referral IDStatusReasonStart DateExpiration DateVisits RequestedVisits [id number]/29/20226/[id number] Pain (injury)Left sided, ongoing since Tuesday, denies injury, hurts to take a deep breathSpecialty Diagnoses / ProceduresReferred By ContactReferred To ContactRadiology Diagnoses Colon cancer screening Fatty liver Procedures US LIVER Tari Curtis MD [address] [place] [address] Referral IDStatusReasonStart DateExpiration DateVisits RequestedVisits [id number]/31/202210/31/[id number] / Procedures Referred By ContactReferred To Contact Diagnoses Postural syncope R55 (ICD-10-CM) - Postural syncope Procedures Tilt Table Test Tilt Table Test [place] CARDIOVASCULAR FUNCTION EVAL W/TILT TABLE W/MNTR [address] - [place] CARDIOVASCULAR FUNCTION EVAL W/TILT TABLE W/MNTR Might, Vivian W, TELEPHONE STATION REPAIRER - RECEPTIONIST DOCTOR'S OFFICE [address] [place] [address] Referral IDStatusReasonStbruno DateExpiration DateVisits RequestedVisits [id number]/29/202212/[id number] / Procedures Referred By ContactReferred To Contact Diagnoses Syncope and collapse Preop cardiovascular exam Dizziness Primary hypertension Mixed hyperlipidemia Tobacco abuse counseling Procedures Continuous cardiac monitoring, >2 up to 14 days Nathan Ardon MD [address] [place] [address] Referral IDStatusReasonLeeds DateExpiration DateVisits RequestedVisits [id number] Review/[id number] / ProceduresReferred By ContactReferred To ContactRadiology Diagnoses Lumbar radiculitis Procedures MRI LUMBAR SPINE WO CONTRAST Leslie Gamez, TELEPHONE STATION REPAIRER - TRAVELING PHLEBOTOMIST [address] [place] [address] Referral IDStatusasonLeeds DateExpiration DateVisits RequestedVisits [id number]/30/20233/[id number] / Procedures Referred By ContactReferred To [facility] Diagnoses Tired Fatigue, unspecified type LAYNE (obstructive sleep apnea) Procedures Home sleep study Nathan Ardon MD [address] [place] [address] [place] [address] Referral IDStatReasonLeeds DateExpiration DateVisits RequestedVisits [id number]/14/20232/[id number] / Procedures Referred By ContactReferred To Contact Diagnoses Screening for colon cancer SCREENING Procedures OH COLON CA SCRN NOT HI RSK IND [place] COLONOSCOPY FLX DX W/COLLJ SPEC WHEN PFRMD OH COLONOSCOPY W/BIOPSY SINGLE/MULTIPLE OH COLSC FLX W/RMVL OF TUMOR POLYP LESION SNARE TQ COLORECTAL CANCER SCREENING, NOT HIGH RISK Tari Curtis MD [address] [place] [address] [place] [address] [facility] [address] [place] [address] Referral IDStatusasonLeeds DateExpiration DateVisits RequestedVisits [id number] / ProceduresReferred By ContactReferred To ContactRadiology Diagnoses Thoracic neuritis M54.14 (ICD-10-CM) - Thoracic neuritis Procedures MRI THORACIC SPINE WO CONTRAST CHG MRI SPINAL CANAL THORACIC W/O CONTRAST MATRL 25794 - CHG MRI SPINAL CANAL THORACIC W/O CONTRAST DEEPIKAL Terry Brady MD [address] [facility], [address] [place] [address] Referral IDStatusReasonart DateExpiration DateVisits RequestedVisits [id number]/8/20234/[id number] / Procedures Referred By ContactReferred To [facility] Diagnoses LAYNE (obstructive sleep apnea) Procedures Sleep study with PAP titration Nathan Ardon MD [address] [facility] [place] [place] [address] Referral IDStatusCurbsyLeeds DateExpiration DateVisits RequestedVisits [id number]/9/20234/[id number] of ConsciousnessX3 since 1900 with each episode [...] syncope Acute pneumonia Emanuel Danielle MD [address] [place] [address] [facility] [address] [place] [address] Referral IDStatusReasonStart DateExpiration DateVisits RequestedVisits [id number] of ConsciousnessPatient was recently discharged, patient today had syncope episode.SpecialtyDiagnoses / Procedures Referred By ContactReferred To ContactRadiology Diagnoses Recurrent pansinusitis Procedures CT SINUS W CONTRAST Might, Vivian W, TELEPHONE STATION REPAIRER - RECEPTIONIST DOCTOR'S OFFICE [address] [place] [address] Referral IDStatusReasonLeeds DateExpiration DateVisits RequestedVisits [id number]/1/20249/[id number] InjuryPatient states she was up walking around [...] tarsal joint of left foot [S93.315A] Procedures OH PRQ SKEL FIXJ METAR FX W/MANJ OH APPLICATION UNIPLANE EXTERNAL FIXATION SYSTEM FOOT CLOSED REDUCTION PINNING ANKLE EXTERNAL FIXATOR APPLICATION (ORTHOFIX) Meera Mike DPM [address] 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) Tobacco abuse Left foot pain Procedures CT FOOT LEFT WO CONTRAST Meera Mike DPM [address] [place] [address] Referral IDStatusReasonStart DateExpiration DateVisits RequestedVisits [id number]/5/20241/[id number] / Procedures Referred By ContactReferred To Contact Diagnoses Charcot ankle, left Diabetes (HCC) Charcot ankle, left [M14.672] Diabetes (HCC) [E11.9] Procedures OH REMOVAL EXTERNAL FIXATION SYSTEM UNDER ANES OH ARTHRODESIS SUBTALAR OH ARTHRD MIDTARSL/TARSOMETATARSAL MULT/TRANSVRS REMOVE EXTERNAL FIXATOR LEFT FOOT SUBTALAR JOINT FUSION; FUSION MIDFOOT MULTIPLE JOINTS LEFT FOOT SUBTALAR JOINT FUSION; FUSION MIDFOOT MULTIPLE JOINTS LEFT FOOT Meera Mike, DPM [address] [facility] [address] [place] [address] [facility] [address] [place] [address] Referral IDStatusReasonLeeds DateExpiration DateVisits RequestedVisits [id number]oHq states she was here earlier to get [...] (acute kidney injury) Emanuel Danielle MD [address] [facility] [place] [address] Phone: tel: fax: [facility] [address] [place] [address] Referral IDStatusReasonLeeds DateExpiration DateVisits RequestedVisits [id number] INFORMATION SOURCE (unrecogn ized section and content) DATE CREATED AUTHOR 10/24/2021 [facility] DATE CREATED AUTHOR AUTHOR'S ORGANIZ ATION 11/05/2021 [facility] DATE CREATED AUTHOR AUTHOR'S ORGANIZ ATION 10/30/2022 [facility] DATE CREATED AUTHOR AUTHOR'S ORGANIZ ATION 02/09/2023 [facility] DATE CREATED AUTHOR AUTHOR'S ORGANIZ ATION 09/20/2024 [facility] DATE CREATED AUTHOR AUTHOR'S ORGANIZ ATION 07/20/2025 [facility] DATE CREATED AUTHOR AUTHOR'S ORGANIZ ATION 08/05/2025 [facility] DATE CREATED AUTHOR AUTHOR'S ORGANIZ ATION 08/06/2025 [facility] Care Teams (unrecognized sec tion and content) Team Status: Active Member Role Status Dates NON STAFF Primary Care Provider Active Team Status: Inactive Member Role Status Dates NON STAFF Primary Care Provider Active Start: June 24, 2025 End: June 24, 2025JuLuis Crandall ProviderActiveStart: June 24, 2025 End: June 24, 2025Team MemberRelationshipSpecialtyStart DateEnd Date Vivian APRN [facility] PCP - GeneralFamily Nurse Practitioner05/10/18Team MemberRelationshipSpecialty Start DateEnd Date Vivian APRN - RECEPTIONIST DOCTOR'S OFFICE PCP - GeneralFamily Nurse Practitioner05/10/18Team MemberRelationshipSpecialty Start DateEnd Date Vivian Lemos APRN - RECEPTIONIST DOCTOR'S OFFICE PCP - GeneralFamily Nurse Practitioner05/10/18Team MemberRelationshipSpecialty Start DateEnd Date Vivian Lemos APRN - RECEPTIONIST DOCTOR'S OFFICE PCP - GeneralFamily Nurse Practitioner05/10/18Team MemberRelationshipSpecialty Start DateEnd Date Vivian Lemos APRN - RECEPTIONIST DOCTOR'S OFFICE PCP - GeneralFamily Nurse Practitioner8/15/18Team MemberRelationshipSpecialty Start DateEnd Date Might, Vivian Combs APRN - RECEPTIONIST DOCTOR'S OFFICE PCP - GeneralFamily Nurse Practitioner05/10/18 MemberRelationshipSpecialty Start DateEnd Date Might, Vivian Combs APRN - [facility] PCP - GeneralFamily Nurse Practitioner05/10/18Team MemberRelationshipSpecialty Start DateEnd Date Might, Vivian Combs APRN - [facility] PCP - GeneralFamily Nurse Practitioner05/10/18 MemberRelationshipSpecialty Start DateEnd Date Might, Vivian Combs APRN - [facility] PCP - GeneralFamily Nurse Practitioner05/10/18 MemberRelationshipSpecialty Start DateEnd Date Might, Vivian Combs APRN - [facility] PCP - GeneralFamily Nurse Practitioner05/10/18 MemberRelationshipSpecialty Start DateEnd Date Might, Vivian Combs TELEPHONE STATION REPAIRER - [facility] PCP - GeneralFamily Nurse Practitioner05/10/18 MemberRelationshipSpecialty Start DateEnd Date Might, Vivian Combs TELEPHONE STATION REPAIRER - [facility] PCP - GeneralFamily Nurse Practitioner05/10/18Team MemberRelationshipSpecialty Start DateEnd Date Might, Vivian Combs TELEPHONE STATION REPAIRER - RECEPTIONIST DOCTOR'S OFFICE PCP - GeneralFamily Nurse Practitioner05/10/18Team MemberRelationshipSpecialty Start DateEnd Date Might, Vivian Combs TELEPHONE STATION REPAIRER - RECEPTIONIST DOCTOR'S OFFICE PCP - GeneralFamily Nurse Practitioner05/10/18Team MemberRelationshipSpecialty Start DateEnd Date Might, Vivian Combs, TELEPHONE STATION REPAIRER - RECEPTIONIST DOCTOR'S OFFICE PCP - Generalmily Nurse Practitioner05/10/18Team MemberRelationshipSpecialty Start DateEnd Date Might, Vivian Combs TELEPHONE STATION REPAIRER - RECEPTIONIST DOCTOR'S OFFICE PCP - Generalmily Nurse Practitioner05/10/18Team MemberRelationshipSpecialty Start DateEnd Date Might, Vivian Combs TELEPHONE STATION REPAIRER - RECEPTIONIST DOCTOR'S OFFICE PCP - Generalmily Nurse Practitioner05/10/18Team MemberRelationshipSpecialty Start DateEnd Date Might, Vivian Combs TELEPHONE STATION REPAIRER - RECEPTIONIST DOCTOR'S OFFICE PCP - Generalmily Nurse Practitioner05/10/18 Team Status: Inactive Member Role Status Dates NON STAFF Primary Care Provider Active [facility] ProviderActiveTeam MemberRelationshipSpecialtyStart DateEnd Date Might, Vivian Combs TELEPHONE STATION REPAIRER - RECEPTIONIST DOCTOR'S OFFICE [facility]05/10/18Te MemberRelationshipSpecialty Start DateEnd Date Might, Vivian Combs TELEPHONE STATION REPAIRER - RECEPTIONIST DOCTOR'S OFFICE PCP - Generalmily Nurse Practitioner05/10/18Team MemberRelationshipSpecialty Start DateEnd Date Might, Vivian Combs TELEPHONE STATION REPAIRER - RECEPTIONIST DOCTOR'S OFFICE PCP - GeneralFamily Nurse Practitioner05/10/18Team MemberRelationshipSpecialty Start DateEnd Date Might, Vivian Combs TELEPHONE STATION REPAIRER - RECEPTIONIST DOCTOR'S OFFICE PCP - Generalmily Nurse Practitioner05/10/18Team MemberRelationshipSpecialty Start DateEnd Date Might, Vivian Combs TELEPHONE STATION REPAIRER - RECEPTIONIST DOCTOR'S OFFICE PCP - Generalmily Nurse Practitioner05/10/18Team MemberRelationshipSpecialty Start DateEnd Date Vivian Lemos APRN [facility] PCP - Generalmily Nurse Practitioner05/10/18Team MemberRelationshipSpecialty Start DateEnd Date Vivian Lemos APRN [facility] PCP - Generalmily Nurse Practitioner05/10/18Team MemberRelationshipSpecialty Start DateEnd Date Vivian Lemos APRN [facility] - [facility]05/10/18Team MemberRelationshipSpecialty Start DateEnd Date Vivian Lemos APRN [facility] - [facility] Nurse Practitioner05/10/18Team MemberRelationshipSpecialty Start DateEnd Date Vivian Lemos APRN [facility]CP - [facility]ly Nurse Practitioner05/10/18Team MemberRelationshipSpecialty Start DateEnd Date Vivian Lemos APRN [facility] PCP - Generalmily Nurse Practitioner05/10/18Team MemberRelationshipSpecialty Start DateEnd Date Vivian Lemos APRN [facility] PCP - Generalmily Nurse Practitioner05/10/18Team MemberRelationshipSpecialty Start DateEnd Date Vivian Lemos APRN [facility] PCP - GeneralFamily Nurse Practitioner05/10/18Team MemberRelationshipSpecialty Start DateEnd Date Vivian Lemos APRN [facility] PCP - GeneralFamily Nurse Practitioner05/10/18Team MemberRelationshipSpecialty Start DateEnd Date Vivian Lemos APRN [facility] PCP - Generalmily Nurse Practitioner05/10/18Team MemberRelationshipSpecialty Start DateEnd Date Vivian Lemos APRN [facility] - [facility] Practition[facility]05/10/18Team MemberRelationshipSpecialty Start DateEnd Date Vivian Lemos APRN [facility] PCP - GeneralB[facility] Centerly Nurse Practitioner05/10/18Team MemberRelationshipSpecialty Start DateEnd Date Vivian Lemos APRN [facility] PCP - [facility] Centerly Nurse Practitioner05/10/18Team MemberRelationshipSpecialty Start DateEnd Date Vivian Lemos APRN [facility] PCP - Generalmily Nurse Practitioner05/10/18Team MemberRelationshipSpecialty Start DateEnd Date Vivian Lemos APRN [facility] PCP - Generalmily Nurse Practitioner05/10/18Team MemberRelationshipSpecialty Start DateEnd Date Vivian Lemos APRN [facility] PCP - GeneralFamily Nurse Practitioner05/10/18Team MemberRelationshipSpecialty Start DateEnd Date Vivian Lemos APRN [facility] PCP - GeneralFamily Nurse Practitioner05/10/18Team MemberRelationshipSpecialty Start DateEnd Date Vivian Lemos [facility]N [facility] SYSTEM PCP - Generalmily Nurse Practitioner05/10/18Team MemberRelationshipSpecialty Start DateEnd Date Vivian Lemos APRN [facility] P[facility] - [facility] Nurse Practitioner05/10/18Team MemberRelationshipSpecialty Start DateEnd Date Vivian Lemos APRN [facility] PCP - [facility] Nurse Practitioner05/10/18Team MemberRelationshipSpecialty Start DateEnd Date Vivian Lemos APRN [facility] PCP - Generalmily Nurse Practitioner05/10/18Team MemberRelationshipSpecialty Start DateEnd Date Vivian Lemos APRN [facility] PCP - Generalmily Nurse Practitioner05/10/18Team MemberRelationshipSpecialty Start DateEnd Date Vivian Lemos APRN [facility] PCP - Generalmily Nurse Practitioner05/10/18Team MemberRelationshipSpecialty Start DateEnd Date Vivian Lemos APRN [facility] PCP - GeneralFamily Nurse Practitioner05/10/18Team MemberRelationshipSpecialty Start DateEnd Date Vivian Lemos APRN [facility] PCP - GeneralFamily Nurse Practitioner05/10/18Team MemberRelationshipSpecialty Start DateEnd Date Vivian Lemos APRN [facility] PCP - GeneralFamily Nurse Practitioner05/10/18Team MemberRelationshipSpecialty Start DateEnd Date Vivian Lemos APRN [facility] PCP - Generalmily Nurse Practitioner05/10/18Team MemberRelationshipSpecialty Start DateEnd Date Vivian Lemos APRN [facility] PCP - GeneralFamily Nurse Practitioner05/10/18Team MemberRelationshipSpecialty Start DateEnd Date Vivian Lemos APRN [facility] PCP - GeneralFamily Nurse Practitioner05/10/18Team MemberRelationshipSpecialty Start DateEnd Date Vivian Lemos APRN [facility] PCP - GeneralFamily Nurse Practitioner05/10/18Team MemberRelationshipSpecialty Start DateEnd Date Vivian Lemos APRN [facility] PCP - GeneralFamily Nurse Practitioner05/10/18Team MemberRelationshipSpecialty Start DateEnd Date Vivian Lemos APRN [facility] PCP - GeneralFamily Nurse Practitioner05/10/18Team MemberRelationshipSpecialty Start DateEnd Date Vivian Lemos APRN [facility] PCP - GeneralFamily Nurse Practitioner05/10/18Team MemberRelationshipSpecialty Start DateEnd Date Vivian Lemos APRN [facility] PCP - GeneralFamily Nurse Practitioner05/10/18Team MemberRelationshipSpecialty Start DateEnd Date Vivian Lemos APRN [facility] PCP - Generalmily Nurse Practitioner05/10/18Team MemberRelationshipSpecialty Start DateEnd Date Vivian Lemos APRN [facility] PCP - [facility] Nurse Practitioner05/10/18Team MemberRelationshipSpecialty Start DateEnd Date Vivian Lemos APRN [facility] PCP - GeneralFamily Nurse Practitioner05/10/18Team MemberRelationshipSpecialty Start DateEnd Date Vivian Lemos APRN [facility] PCP - GeneralFamily Nurse Practitioner05/10/18Team MemberRelationshipSpecialty Start DateEnd Date Vivian Lemos APRN [facility] PCP - Generalmily Nurse Practitioner05/10/18Team MemberRelationshipSpecialty Start DateEnd Date Vivian Lemos APRN [facility] PCP - GeneralFamily Nurse Practitioner05/10/18Te MemberRelationshipSpecialty Start DateEnd Vivian Lemos [facility] PCP - GeneralFamily Nurse Practitioner05/10/18Te MemberRelationshipSpecialty Start DateEnd Date Vivian Lemos [facility] PCP - GeneralFamily Nurse Practitioner05/10/18 Ordered Prescriptions [...] Donovan, BREANNA) * 2113 (Given - Provider: Cehyenne Poon, RN) * 824 (Given - Provider: [...] RN) * 1919 (Given - Provider: Ramya aNm RN) * 0709 (Given - Provider: Joanie [...] * 2100 (Due - Provider: Good Hawley [facility]) cetirizine (ZYRTEC) tablet 10 mg [...] Lo RN) * 0812 (Given - Provider: Anenmarie Mcintosh RN) * 1411 (Given - Provider: [...] * 2112 (Not Given - Provider: Stella oL RN - Reason: IV Fluid Infusing) * [...] Lo RN) * 0905 (Given - Provider: Jsese Duron RN) * 1316 (Given - Provider: [...] * 0807 (Given - Provider: Johnathan Lara, TELEPHONE STATION REPAIRER - HORSE RACING MANAGER) ceFAZolin (ANCEF) 2000 mg in 20 mL [...] Tue09/14/24 at 1400, Last dose on Tue09/20/24 [id number], Labeling may look different. 25 [id number] Units. Please double check dosages. * 1602 [...] for injection by adding 1 mL of manager new product-supplied sterile diluent or sterile water for injection [...] * 2099 (Due - Provider: Ting Hawthorne [facility]) budesonide-formoterol (SYMBICORT) 160-4.5 MCG/ACT inhaler 2 puff [...] * 2099 (Due - Provider: Ting Hawthorne [facility]) insulin lispro (HUMALOG,ADMELOG) injection vial 0-8 Units [...] * 2100 (Due - Provider: Ting Hawthorne [facility]) sodium chloride 0.9 % bolus 1,000 mL [...] mL IV syringe (COMPLETED) 2,000 mg, IntraVENous, AUTOMATIC DRILLING MACHINE OPERATOR TO O.R., 1 dose, On Tue07/23/25 at 0700, Antimicrobial Indications:Surgical Prophylaxis, Administer within 1 hour prior to incision. Repeat in 2 hours after initial dose if still intra-op. Administer over 5 mins. Reconstitute 2 g vial with 20 mL Sterile Water. Withdraw entire contents., Pre-op (day of surgery) * 0753 (New Bag - Provider: Brittney Mitchell, JOSSE - HORSE RACING MANAGER) dimenhyDRINATE (DRAMAMINE) tablet 50 mg (COMPLETED) 50 [...] BE BASED ON THE PRIMARY CLINICAL RECORDS. [facility]. provides no warranty or guarantee of the accuracy or completeness of information in this document.
--- NOTE | 2025-08-29 13:39 | PM.CN ---
Consult Note: HPI Data of Consult Patient: known to practice within the last 3 years Consult date: 08/07/25 Requesting Physician: Suzi Longoria NP Primary Care Provider: Non-Staff Physician, Family Provider: LEESA Consult Narrative Reason for consult: all over pain Narrative: Risa Joshi a 50 year old female with chronic diffuse pain and low back pain presents for evaluation. pt has failed to benefit from > 6 weeks of PT and provider guided HEP for low back pain. she continues to utilize tramadol 100mg BID PRN pain, diclofenac 75mg BID PRN pain, tylenol, pregabalin 150mg TID, ropinirole 4mg HS, robaxin 500-1000mg TID PRN with mild relief. has not been evaluated recently by rheumatology, despite us discussing this for > 12 months. Pain today 7/10 in bilateral shoulders and low back. notes increased pain with standing, walking, bending, activity, weather changes. Patient following with Dr Dominique for bilateral shoulder pain. Patient has not established care with [facility] pain management yet, but intends to . cc:: CC: Suzi Longoria NP Review of Systems ROS Musculoskeletal Reports: back pain, extremity pain and joint pain PFSH PFS Medical History S/P extracorporeal shock wave therapy ?Z98.890 - Other specified postprocedural states (ICD-10) Ureteral stent displacement ?T83.122A - Displacement of indwelling ureteral stent, initial encounter (ICD-10) Goiter ?E04.9 - Nontoxic goiter, unspecified (ICD-10) RSD (reflex sympathetic dystrophy) ?G90.50 - Complex regional pain syndrome I, unspecified (ICD-10) TMJ (dislocation of temporomandibular joint) ?S03.00XA - Dislocation of jaw, unspecified side, initial encounter (ICD-10) Upper back pain ?M54.9 - Dorsalgia, unspecified (ICD-10) Neck pain ?M54.2 - Cervicalgia (ICD-10) Low back pain ?M54.50 - Low back pain, unspecified (ICD-10) Fibromyalgia ?M79.7 - Fibromyalgia (ICD-10) Neuropathy ?G62.9 - Polyneuropathy, unspecified (ICD-10) Hyperthyroidism ?E05.90 - Thyrotoxicosis, unspecified without thyrotoxic crisis or storm (ICD-10) Heart palpitations ?R00.2 - Palpitations (ICD-10) Angina at rest ?I20.8 - Other forms of angina pectoris (ICD-10) Kidney stone ?N20.0 - Calculus of kidney (ICD-10) Asthma ?J45.909 - Unspecified asthma, uncomplicated (ICD-10) Smoker ?F17.200 - Nicotine dependence, unspecified, uncomplicated (ICD-10) Hypertension ?I10 - Essential (primary) hypertension (ICD-10) High cholesterol ?E78.00 - Pure hypercholesterolemia, unspecified (ICD-10) Diabetes ?E11.9 - Type 2 diabetes mellitus without complications (ICD-10) Surgical History S/P insertion of spinal cord stimulator ?Z96.89 - Presence of other specified functional implants (ICD-10) H/O: hysterectomy ?Z90.710 - Acquired absence of both cervix and uterus (ICD-10) S/P shoulder surgery ?Z98.890 - Other specified postprocedural states (ICD-10) Meds Home Medications and Allergies Home Medications ?Medication ?Instructions ?Recorded ?Confirmed ?Type aspirin 81 mg tablet,delayed 81 mg PO DAILY 02/25/23 08/19/25 History release (Adult Low Dose Aspirin) atorvastatin 80 mg tablet (Lipitor) 80 mg PO DAILY 02/25/23 08/19/25 History fenofibrate micronized PO QDAY 02/25/23 History fluticasone propionate 50 1 spray intranasal DAILY 02/25/23 08/19/25 History mcg/actuation nasal spray,suspension (Flonase Allergy Relief) insulin lispro 200 unit/mL (3 mL) 60 unit subcut TID 02/25/23 08/19/25 History subcutaneous pen (Humalog KwikPen U-200 Insulin) levocetirizine 5 mg tablet (Xyzal) 5 mg PO DAILY 02/25/23 08/19/25 History metoprolol succinate 50 mg PO QDAY 02/25/23 08/19/25 History montelukast 10 mg tablet 10 mg PO QPM 02/25/23 08/19/25 History (Singulair) insulin regular hum U-500 conc 500 120 unit subcut BID 07/12/23 08/19/25 History unit/mL(3 mL) subcut pen (Humulin R U-500 (Conc) Insulin Kwikpen) duloxetine 60 mg capsule,delayed 60 mg PO DAILY #30 caps 07/04/24 08/19/25 Rx release naloxone 4 mg/actuation nasal 4 mg intranasal Q2M PRN opioid 07/04/24 08/19/25 Rx spray (Narcan) overdose #2 ea diclofenac sodium 75 mg 75 mg PO BID PRN pain #60 tabs 02/13/25 08/19/25 Rx tablet,delayed release ropinirole 4 mg tablet 4 mg PO HS #30 tabs 03/06/25 08/19/25 Rx empagliflozin 10 mg tablet 10 mg PO DAILY 05/01/25 08/19/25 History (Jardiance) fexofenadine 30 mg tablet 60 mg PO BID 05/01/25 08/19/25 History fluticasone 500 mcg-salmeterol 50 1 inh inhalation BID 05/01/25 08/19/25 History mcg/dose blistr powdr for inhalation (Wixela Inhub) alendronate 70 mg tablet (Fosamax) 70 mg PO QWEEK 06/06/25 08/19/25 History methocarbamol 500 mg tablet See Rx Instructions .Route 07/30/25 08/19/25 Rx .COMPLEX PRN spasms #180 tabs pregabalin 75 mg capsule (Lyrica) 75 mg PO TID #90 caps 07/30/25 08/19/25 Rx tramadol 50 mg tablet See Rx Instructions .Route 07/30/25 08/19/25 Rx .COMPLEX PRN pain #120 tabs Allergies Allergy/AdvReac Type Severity Reaction Status Date / Time Penicillins Allergy Unknown Unknown Verified 08/19/25 09:32 Exam Narrative Exam Narrative: diffuse myofascial pain Constitutional Documenting provider has reviewed patient's vital signs: yes Common normals: no apparent distress, oriented x3, healthy appearing, alert and well nourished General appearance: cooperative HENNE Common normals: normocephalic, hearing grossly normal bilaterally and moist oral mucous membranes Head and scalp: normocephalic Eye Common normals: PERRL Pupil: PERRL Neck & C-Spine Common normals: full ROM General: normal visual inspection Chest Common normals: inspection of chest normal Respiratory Common normals: normal respiratory effort, no retractions and no use of accessory muscles Back & Pelvis Lumbar spine/lower back: ROM limited, pain with ROM and lumbar spinal tenderness Lumbar spinal tenderness location: L3, L4 and L5 Sacroiliac joints: SI joints normal Other: strength 5/5 in BLE Extremity Common normals: normal to inspection and full ROM Neuro Common normals: oriented x3 Sensorium/orientation: alert Psych Common normals: mental status grossly normal, thought process normal, cooperative, affect normal, speech normal and activity/motor behavior normal Speech: normal speech Thought process: normal thought process Results Additional Findings Additional findings: If on a controlled substance or opioids, I have checked an [place] report on this patient and there are no aberrancies noted in the prescribing history.??If on a controlled substance or opioid a drug screen was completed and reviewed within the last year, and if there has not been a drug screen completed we ordered one today to monitor higher risk, state monitored pain medication use. As part of providing excellent, safe, comprehensive care, the following was completed at our patient's visit: 1. A medication reconciliation and review to ensure accurate knowledge of current/active medications, including asking our patients to inform us about any [id number] medications or herbal remedies/nutritional supplements/alternative remedies. 2. A review to specifically ensure our patients have had annual screening for screening for depression, screening for tobacco use, and screening for unhealthy alcohol use. For concerning screenings had a discussion with the patient, provided patient education, and recommended follow-up with primary care provider when appropriate. If patient noted with a risk of falling, they received education on strength, gait, and balance training to prevent future risk of falling. Portions of this note may have been carried over from the previous visit and updated as appropriate. Please note this office utilizes paper charting in addition to the electronic medical record. A list of current medications, vitals, and PMH is available there as the clinical staff outside of myself do not have access to [facility] [employer] charting during the clinic day operations. As part of providing quality comprehensive care the current medications, vitals, and PMH were reviewed in the paper chart. Assessment and Plan Assessment and Plan (1) Sacroiliitis: Assessment and Plan: The patient has had over 3 months of moderate to severe low back and bilateral SIJ pain with functional impairment and inadequate response to conservative care including NSAIDS (unless there are contraindication such as concurrent blood thinners), multiple oral or topical pain medications, and home exercise program/physical therapy.? Patient has completed >6 weeks of guided home exercise program and/or formal physical therapy program without relief of their symptoms.? The Oswestry Disability Index was completed, and the patient scored a 68%.? (2) Fibromyalgia: (3) Lumbar spondylosis: Assessment and Plan: 04-24-24 bilateral L4-5 L5-S1 MBB with >80% improvement in pain and functional ability while anesthetized 1624 bilateral L4-5 L5-S1 MBB with >80% improvement in pain and functional ability while anesthetized 1524 right L4-5 L5-S1 facet RFA >50% improvement in pain and functional ability for at least 6 months, procedure completed with MAC sedation 02-25-25 bilateral L4-5 L5-S1 facet RFA >50% improvement in facet mediated low back pain (4) Lumbar radiculopathy: (5) Chronic prescription opiate use: Assessment and Plan: I feel these medications are improving the patient's quality of life and allow them to tolerate activities of daily living as well as participate in recreational activity.? The patient does not report intolerable side effects. The patient is NOT opioid naive and non-pharmacologic and non-opioid treatment has failed to significantly relieve the patient's pain and improve functionality. The patient has a diagnosis that is related to a somatic or visceral pain etiology. ? ?? I reviewed with the patient the potential risks and side effects with the use of? opioid medications including but not limited to respiratory depression,? sedation, and even . Within the last 12 months I have verified the patient has access to naloxone should? these effects occur. The patient was advised to let? their family know they had Naloxone in case they would need to administer? the medication. I advised the patient to avoid the use of any other? sedation substances including alcohol, THC, and benzodiazepines while? taking opioid medications due to the risk of compounding side effects and? detrimental outcomes. within the last 12 months I have reviewed the BAND SAW OPERATOR, pain treatment agreement and urine drug screen.? ?? A drug screen was completed within the last year, and no aberrancies were noted regarding their use of controlled substances. The patient understands they are subject to the terms and conditions of the pain contract that they have signed. ? ?? I have checked an [place]AR[place] report on this patient today and there are no aberrancies noted in the prescribing history.? (6) Neuropathy: (7) RSD (reflex sympathetic dystrophy): (8) Lumbar stenosis with neurogenic claudication: (9) Chronic pain syndrome: (10) Chronic hip pain, bilateral: Assessment and Plan: prior hip xray from 03/13/24 shows no OA to left and mild to right hip, however she states her bone density radiologist told her she had severe OA Plan recommend pt be evaluated with [facility] pain rehabilitation program for FM. patient needs psychiatry, dietary consult, PT/OT, and pain management through a comprehensive center. pt agreeable to scheduling this consultation patient reminded to stop opioids from our office while shes being managed for post op pain with upcoming sinus surgery and potential shoulder surgery continue lyrica back 75mg TID continue tramadol 100mg BID PRN moderate to severe pain, diclofenac 75mg BID PRN pain, duloxetine 60mg daily, robaxin 500-1000mg tid prn pain/spasms defer lumbar TFESI due to upcoming surgery f/u 3 months, sooner if needed
== END 2025-08-29 13:05 | disposition home or self-care (01) ==
LOC: PM 13:04
PROVIDERS: Visit Provider Nurse Practitioner
DX: M46.1 Sacroiliitis, not elsewhere classified (principal); M79.7 Fibromyalgia; M47.816 Spondylosis without myelopathy or radiculopathy, lumbar region; M54.16 Radiculopathy, lumbar region; Z79.891 Long term (current) use of opiate analgesic
CPT/HCPCS: G0463